=== PATIENT | male | born 1980 | race Hispanic/Latino ===

== ENCOUNTER 2017-01-24 21:39 | Inpatient (IN) | payer OTHER ==
[~2017-01-24] VITALS: Ht 332.7 cm; Wt 96.0 kg
[~2017-01-24 21:39] MED LIST: AMLODIPINE BESY10 MG PO; ARNUITY ELLIPTA INH; AUGMENTIN 500-1 EACH PO; AUGMENTIN 875-1 EACH PO; Anoro Ellipta INH; CEPHALEXIN500 MG PO; CIPRO500 MG PO; COLACE100 MG PO; DIFLUCAN100 MG PO; DOXYCYCLINE HY100 MG PO; FLOMAX0.4 MG PO; FLUCONAZOLE100 MG PO; FLUDROCORTISON0.1 MG PO; FLUTICASONE PRO16 GM; HUMALOG MI100 UNIT/4 SQ; KEFLEX500 MG PO; LANTUS100 UNIT/1 SQ; LEVEMIR100 UNIT/1 SQ; LISINOPRIL10 MG PO; MERREM500 MG IV; METFORMIN HCL500 MG PO; METOPROLOL TART25 MG PO; NORCO 5-325 TA1 EACH PO; NOVOLOG100 UNIT/1 SQ; OXYBUTYNIN CHLOR5 M1 PO; PANTOPRAZOLE SO40 MG PO; PROAIR HFA INH8.5 GM INH; PROBIOTIC & AC1 EACH PO; PROMETHAZINE HC25 M1 PO; REGLAN10 MG; REGLAN10 MG PO; SENNA-S TABLET1 EA PO; SODIUM BICARBO650 MG PO; TYLENOL WITH C1 EACH PO; ULTRAM50 MG PO
[2017-01-24 22:53] LABS: BILIRUBIN,URINE NEGATIVE (NEGATIVE); CLARITY,URINE CLOUDY (CLEAR); COLOR,URINE YELLOW (YELLOW); KETONES,URINE NEGATIVE (NEGATIVE); LEUKOCYTE ESTERASE ,URINE 2+ (NEGATIVE); NITRITE,URINE NEGATIVE (NEGATIVE); PROTEIN,URINE DIPSTICK 1+ (NEGATIVE); URINE UROBILINOGEN 0.2 mg/dL (0.2 - 1)
[2017-01-24 22:55] LABS: BACTERIA,URINE MODERATE /HPF; EPITHELIAL CELLS,URINE RARE /LPF; RBC,URINE >50 /HPF (0-5); WBC,URINE (MAN) >50 /HPF (0-5)
[2017-01-24] MEDS ORDERED: ONDANSETRON HCL INJ 2 MG/ML VIAL IV STA (23:48)
[2017-01-24] MEDS ORDERED: SODIUM CHLORIDE 0.9% 1000ML 1,000 ML IV STA (23:48)
[2017-01-24] MEDS ORDERED: MEROPENEM 1GRAM 1 GM in SODIUM CHLORIDE 0.9% 100 ML 100 ML IV STA (23:48)
[2017-01-25] MEDS ORDERED: MORPHINE SULFATE 5 MG/ML VIAL IV ONE
[2017-01-25 00:22] LABS: BASOPHILS % 0.3 % (0.0-1.0); EOSINOPHILS # (AUTO) 0.2 (0.0-0.4); EOSINOPHILS % 2.5 % (0.0-6.0); HEMATOCRIT 29.7 % (38.2-49.6); HEMOGLOBIN 10.2 g/dL (14.0-18.0); LYMPHOCYTES # (AUTO) 1.7 (1.0-3.2); LYMPHOCYTES % 26.7 % (18.0-39.1); MEAN CORPUSCULAR HGB CONC 34.3 g/dL (31-35); MEAN CORPUSCULAR VOLUME 81.6 fL (81-99); MONOCYTES # (AUTO) 0.5 (0.2-0.8); MONOCYTES % 8.3 % (4.4-11.3); NEUTROPHILS % 61.7 % (38.7-80.0); PLATELET COUNT 162 x10e3/uL (140-360); RED BLOOD COUNT 3.64 x10e6/uL (4.3-5.7); RED CELL DISTRIBUTION WIDTH 13.5 % (11.7-14.4)
[2017-01-25 00:41] LABS: ALBUMIN 3.5 g/dL (3.5-5.0); ALBUMIN/GLOBULIN RATIO 0.7 (0.8-2.0); ANION GAP 13.8 mmol/L (8-16); CALCIUM 8.5 mg/dL (8.4-10.2); CREATININE, SERUM 2.08 mg/dL (0.72-1.25); MAGNESIUM 1.3 MG/DL (1.3-2.1); POTASSIUM 4.8 mmol/L (3.5-5.1)
--- NOTE | 2017-01-25 01:38 | Diagnostic Imaging Report ---
EXAM: CT Abdomen and Pelvis WITHOUT contrast INDICATION: Flank pain, stone protocol COMPARISON: None. TECHNIQUE: Abdomen and pelvis were scanned utilizing a multidetector helical scanner from the lung base to the pubic symphysis without administration of IV contrast. Absence of intravenous contrast decreases sensitivity for detection of focal lesions and vascular pathology. Coronal and sagittal reformations were obtained. Stone protocol is performed. IV CONTRAST: None. ORAL CONTRAST: None RADIATION DOSE: Total DLP: 586.91 mGy*cm Estimated effective dose: (DLP x 0.015 x size factor) mSv COMPLICATIONS: None FINDINGS: LINES and TUBES: None. LOWER THORAX: Unremarkable HEPATOBILIARY: No focal hepatic lesions. No biliary ductal dilation. GALLBLADDER: There are cholecystectomy clips. SPLEEN: No splenomegaly. PANCREAS: No focal masses or ductal dilatation. Scattered regional calcifications noted along the pancreas. ADRENALS: No adrenal nodules KIDNEYS/URETERS: Bilateral hydronephrosis and hydroureter continuously to the level of the urinary bladder wall. No cystic or solid mass lesions. No stones. GI TRACT: No abnormal distention, wall thickening, or evidence of bowel obstruction. Appendix is normal. PELVIC ORGANS/BLADDER: The urinary bladder is diffusely thickened measuring 1.6 cm in diameter throughout with mild increase in wall thickening anteriorly. LYMPH NODES: No lymphadenopathy. VESSELS: There is mild atherosclerotic disease in the aorta and major arterial branches. PERITONEUM / RETROPERITONEUM: No free air or fluid. BONES: Unremarkable. SOFT TISSUES: Unremarkable. IMPRESSION: 1. Changes related to chronic pancreatitis. 2. Bilateral hydronephrosis and hydroureters with circumferentially thickened urinary bladder suggestive of chronic ascites versus less likely developing diffuse transitional cell carcinoma. No evidence of stones. 3. Cholecystectomy Signed by: Dr. Jose M Benavides M.D. on 01/25/2017 1:35 AM
[2017-01-25] MEDS ORDERED: DEXTROSE 50% SYRINGE 50 ML IV PRN (02:45)
[2017-01-25] MEDS: SODIUM CHLORIDE 0.9% 1000ML 1,000 ML IV SCH ×3 (03:14→18:15)
[2017-01-25] MEDS: MORPHINE SULFATE 2 MG/ML SYR IV PRN ×5 (03:40→23:53)
[2017-01-25 03:57] VITALS: BP 161/108
[2017-01-25 07:52] VITALS: BP 144/94
[2017-01-25] MEDS: INSULIN REGULAR, HUMAN 100 UNIT/1 ML 3ML VIAL SQ SCH ×4 (09:56→21:05)
[2017-01-25 11:24] VITALS: BP 143/96
[2017-01-25] MEDS ORDERED: MEROPENEM 1 GM VIAL ONE ×2 (12:32→21:11)
[2017-01-25] MEDS: ONDANSETRON HCL INJ 2 MG/ML VIAL IV PRN ×2 (12:35→18:17)
[2017-01-25] MEDS: MEROPENEM 1GRAM 1 GM in SODIUM CHLORIDE 0.9% 100 ML 100 ML IV SCH ×2 (12:35→21:25)
[2017-01-25 16:04] VITALS: BP 137/88
[2017-01-25] MEDS: INSULIN LISPRO 100 UNIT/1 ML 3ML VIAL SQ SCH (18:01)
[2017-01-25] MEDS: DOXYCYCLINE HYCLATE TABLET 100 MG TAB PO SCH (18:15)
[2017-01-25] MEDS: METOPROLOL TARTRATE 25 MG TAB PO SCH (18:15)
[2017-01-25 20:00] VITALS: BP 134/66
[2017-01-25] MEDS ORDERED: PROMETHAZINE 25MG/ NS 50ML (IV) IV PRN (20:45)
[2017-01-25] MEDS: INSULIN DETEMIR 100 UNIT/ML PEN SQ SCH (21:05)
[2017-01-26] VITALS: BP 153/107
[2017-01-26] MEDS: SODIUM CHLORIDE 0.9% 1000ML 1,000 ML IV SCH (02:23)
[2017-01-26 04:00] VITALS: BP 145/100
[2017-01-26] MEDS: MORPHINE SULFATE 2 MG/ML SYR IV PRN ×2 (04:32→09:40)
--- NOTE | 2017-01-26 05:33 | History and Physical ---
CHIEF COMPLAINT: Increasing urinary frequency, dysuria, pain on catheterization, and increasing blood sugar with fever. HISTORY: Patient is a 36-year-old male with a long history of neurogenic bladder secondary to diabetes. The patient self-straight caths at home. He was doing well until more so recently. He has increase in pain with straight cath, and also increasing abdominal pain and flank pain area more so on the right associated with fever and chills. Patient has recurrent infections quite often due to his neurogenic bladder where he straight caths himself to obtain urine. The patient came to the emergency room for evaluation. Here, the patient has a temperature 99.3. It was 101 at home. His laboratory with urinalysis shows significant wbcs of greater than 50, rbcs greater than 50, 2+ leukocyte esterase, and 4+ blood. The patient has moderate bacteria. The patient also had imaging tests. CT scan of the abdomen and pelvis without contrast due to his renal insufficiency. Patient has bilateral hydronephrosis and hydroureter with circumferentially thickened urinary bladder suggestive of chronic cystitis. PAST MEDICAL HISTORY: Diabetes, type 2, on insulin therapy, hypertension, neurogenic urinary bladder, diabetic neuropathy. Has recurrent urinary tract infections, bilateral hydronephrosis with previous stent that was removed. Chronic self-catheterization to obtain urine. PAST SURGICAL HISTORY: Complicated right knee surgery, right lower extremity surgery secondary to work-related injury, cholecystectomy, multiple cystoscopy with intervention. SOCIAL HISTORY: Patient lives with his spouse. He does not smoke or use alcohol. No recreational drugs. The patient is currently on disability leave. PHYSICAL EXAMINATION VITAL SIGNS: Temperature is 99, blood pressure 140/87, pulse rate 97, respirations 20. GENERAL: Patient is not in acute distress. HEENT: Normocephalic, atraumatic and anicteric. NECK: Supple grossly. PULMONARY: Clear. CARDIOVASCULAR: Regular rate and rhythm. ABDOMEN: Soft. Tenderness in the right flank compared to the left. CARDIOVASCULAR: Regular rate and rhythm. ABDOMEN: Soft. Suprapubic tenderness. No rebound or guarding. EXTREMITIES: No cyanosis. Right knee seems to be stable. No changes from baseline at this time. : Barcenas catheter in place. NEUROLOGIC: No focal deficit except for neuropathy from diabetes. LABORATORY: WBC is 6.95, hemoglobin 10.2, hematocrit 29.7, and platelets are 162,000. Chemistries with sodium 134, potassium 4.8, chloride 107, bicarb 18, BUN 34, creatinine 2.08, and glucose is 335. Urinalysis as mentioned with significant glucosuria and bacteria. CT scan showed bilateral hydronephrosis and hydroureter. IMPRESSION 1. Bilateral hydronephrosis and hydroureter. 2. Recurrent urinary tract infection complicated due to diabetic neuropathy with self-straight cath. 3. Diabetes, uncontrolled. PLAN: Antibiotics. Check the urine culture. IV fluids. Antibiotic will be meropenem due to the patient's previous significant multidrug-resistant bacteria. Insulin sliding scale coverage. Hemoglobin A1c. Home medications. IV fluid for washing out. Job#: [id number] ELMA
[2017-01-26 07:23] LABS: BASOPHILS % 0.2 % (0.0-1.0); EOSINOPHILS # (AUTO) 0.1 (0.0-0.4); EOSINOPHILS % 2.6 % (0.0-6.0); HEMATOCRIT 28.5 % (38.2-49.6); HEMOGLOBIN 9.6 g/dL (14.0-18.0); LYMPHOCYTES # (AUTO) 0.9 (1.0-3.2); LYMPHOCYTES % 22.3 % (18.0-39.1); MEAN CORPUSCULAR HEMOGLOBIN 27.6 pg (28-32); MEAN CORPUSCULAR HGB CONC 33.7 g/dL (31-35); MEAN CORPUSCULAR VOLUME 81.9 fL (81-99); MONOCYTES # (AUTO) 0.3 (0.2-0.8); NEUTROPHILS # (AUTO) 2.8 (2.1-6.9); NEUTROPHILS % 67.2 % (38.7-80.0); PLATELET COUNT 136 x10e3/uL (140-360); RED BLOOD COUNT 3.48 x10e6/uL (4.3-5.7); RED CELL DISTRIBUTION WIDTH 13.5 % (11.7-14.4)
[2017-01-26] MEDS: INSULIN REGULAR, HUMAN 100 UNIT/1 ML 3ML VIAL SQ SCH ×4 (07:30→21:40)
[2017-01-26] MEDS: ONDANSETRON HCL INJ 2 MG/ML VIAL IV PRN ×4 (07:40→21:45)
[2017-01-26 07:55] LABS: ALANINE AMINOTRANSFERASE 175 IU/L (0-55); ALBUMIN 2.9 g/dL (3.5-5.0); ALBUMIN/GLOBULIN RATIO 0.7 (0.8-2.0); ALKALINE PHOSPHATASE 273 IU/L (40-150); ANION GAP 9.5 mmol/L (8-16); BLOOD UREA NITROGEN 17 mg/dL (7-26); BUN/CREATININE RATIO 13 (6-25); CALCIUM 8.8 mg/dL (8.4-10.2); CARBON DIOXIDE 22 mmol/L (22-29); CHLORIDE 114 mmol/L (98-107); CREATININE, SERUM 1.26 mg/dL (0.72-1.25); EST GLOMERULAR FILTRATION RATE > 60 ML/MIN (60-); GLUCOSE 75 mg/dL (74-118); POTASSIUM 4.5 mmol/L (3.5-5.1); SODIUM 141 mmol/L (136-145)
[2017-01-26 08:00] VITALS: BP 163/108
[2017-01-26] MEDS: INSULIN LISPRO 100 UNIT/1 ML 3ML VIAL SQ SCH ×3 (08:00→17:07)
[2017-01-26] MEDS: FLUCONAZOLE 100 MG TAB PO SCH (08:00)
[2017-01-26] MEDS: DOXYCYCLINE HYCLATE TABLET 100 MG TAB PO SCH ×2 (08:00→17:15)
[2017-01-26] MEDS: METOPROLOL TARTRATE 25 MG TAB PO SCH ×2 (08:00→17:15)
[2017-01-26] MEDS: OXYBUTYNIN CHLORIDE XL 5 MG TAB PO SCH (08:00)
[2017-01-26] MEDS: AMLODIPINE BESYLATE 10 MG TAB PO SCH (08:00)
[2017-01-26] MEDS ORDERED: MEROPENEM 1 GM VIAL ONE ×2 (10:12→21:30)
[2017-01-26] MEDS: MEROPENEM 1GRAM 1 GM in SODIUM CHLORIDE 0.9% 100 ML 100 ML IV SCH ×2 (10:25→21:40)
[2017-01-26 12:00] VITALS: BP 141/98
[2017-01-26] MEDS: MORPHINE SULFATE 5 MG/ML VIAL IV PRN ×3 (13:35→21:45)
[2017-01-26 16:00] VITALS: BP 141/96
[2017-01-26 20:06] VITALS: BP 127/93
[2017-01-26] MEDS: INSULIN DETEMIR 100 UNIT/ML PEN SQ SCH (21:40)
[2017-01-27 00:33] VITALS: BP 146/101
[2017-01-27] MEDS: MORPHINE SULFATE 5 MG/ML VIAL IV PRN ×6 (01:53→21:10)
[2017-01-27 05:11] VITALS: BP 146/88
[2017-01-27] MEDS: ONDANSETRON HCL INJ 2 MG/ML VIAL IV PRN ×4 (05:51→17:58)
[2017-01-27] MEDS: INSULIN REGULAR, HUMAN 100 UNIT/1 ML 3ML VIAL SQ SCH ×3 (07:30→16:30)
[2017-01-27 07:57] VITALS: BP 129/91
[2017-01-27] MEDS: INSULIN LISPRO 100 UNIT/1 ML 3ML VIAL SQ SCH ×4 (08:00→21:00)
[2017-01-27] MEDS: DOXYCYCLINE HYCLATE TABLET 100 MG TAB PO SCH ×2 (08:05→17:09)
[2017-01-27] MEDS: OXYBUTYNIN CHLORIDE XL 5 MG TAB PO SCH (08:05)
[2017-01-27] MEDS: METOPROLOL TARTRATE 25 MG TAB PO SCH ×2 (08:05→17:00)
[2017-01-27] MEDS: AMLODIPINE BESYLATE 10 MG TAB PO SCH (08:05)
[2017-01-27] MEDS: FLUCONAZOLE 100 MG TAB PO SCH (08:05)
[2017-01-27] MEDS: MEROPENEM 1GRAM 1 GM in SODIUM CHLORIDE 0.9% 100 ML 100 ML IV SCH ×2 (09:15→21:01)
[2017-01-27] MEDS ORDERED: MEROPENEM 1 GM VIAL ONE ×2 (09:37→21:00)
[2017-01-27 11:41] VITALS: BP 141/100
[2017-01-27 16:00] VITALS: BP 108/79
[2017-01-27] MEDS ORDERED: DEXTROSE 50% SYRINGE 50 ML IV PRN (18:30)
[2017-01-27 20:00] VITALS: BP 129/91
[2017-01-27] MEDS: INSULIN DETEMIR 100 UNIT/ML PEN SQ SCH (21:00)
[2017-01-28] VITALS: BP 141/99
[2017-01-28 04:00] VITALS: BP 142/90
[2017-01-28] MEDS: MORPHINE SULFATE 5 MG/ML VIAL IV PRN ×4 (06:20→18:47)
[2017-01-28 07:38] VITALS: BP 119/85
[2017-01-28] MEDS ORDERED: MEROPENEM 1 GM VIAL ONE (08:41)
[2017-01-28] MEDS: INSULIN LISPRO 100 UNIT/1 ML 3ML VIAL SQ SCH ×8 (08:46→21:50)
[2017-01-28] MEDS: OXYBUTYNIN CHLORIDE XL 5 MG TAB PO SCH (08:56)
[2017-01-28] MEDS: METOPROLOL TARTRATE 25 MG TAB PO SCH ×2 (08:57→16:53)
[2017-01-28] MEDS: AMLODIPINE BESYLATE 10 MG TAB PO SCH (08:58)
[2017-01-28] MEDS: DOXYCYCLINE HYCLATE TABLET 100 MG TAB PO SCH ×2 (08:58→16:53)
[2017-01-28] MEDS: ONDANSETRON HCL INJ 2 MG/ML VIAL IV PRN (09:00)
[2017-01-28] MEDS: FLUCONAZOLE 100 MG TAB PO SCH (09:03)
[2017-01-28] MEDS: MEROPENEM 1 GM VIAL IV SCH ×2 (10:26→21:40)
[2017-01-28 11:28] VITALS: BP 124/82
[2017-01-28 19:36] VITALS: BP 139/83
[2017-01-28] MEDS: INSULIN DETEMIR 100 UNIT/ML PEN SQ SCH ×2 (21:40→21:50)
[2017-01-29 00:12] VITALS: BP 102/59
[2017-01-29] MEDS: MORPHINE SULFATE 5 MG/ML VIAL IV PRN ×6 (02:09→21:55)
[2017-01-29 04:00] VITALS: BP 132/80
[2017-01-29 07:27] VITALS: BP 145/94
[2017-01-29] MEDS: INSULIN LISPRO 100 UNIT/1 ML 3ML VIAL SQ SCH ×7 (07:30→21:50)
[2017-01-29] MEDS: OXYBUTYNIN CHLORIDE XL 5 MG TAB PO SCH (09:26)
[2017-01-29] MEDS: METOPROLOL TARTRATE 25 MG TAB PO SCH ×2 (09:26→17:38)
[2017-01-29] MEDS: MEROPENEM 1 GM VIAL IV SCH ×2 (09:26→21:50)
[2017-01-29] MEDS: FLUCONAZOLE 100 MG TAB PO SCH (09:26)
[2017-01-29] MEDS: AMLODIPINE BESYLATE 10 MG TAB PO SCH (09:27)
[2017-01-29] MEDS: DOXYCYCLINE HYCLATE TABLET 100 MG TAB PO SCH ×2 (09:27→17:38)
[2017-01-29 11:11] VITALS: BP 161/99
[2017-01-29 15:42] VITALS: BP 128/93
[2017-01-29 19:58] VITALS: BP 129/75
[2017-01-29] MEDS: INSULIN DETEMIR 100 UNIT/ML PEN SQ SCH (21:50)
[2017-01-30 00:22] VITALS: BP 81/55
[2017-01-30] MEDS: MORPHINE SULFATE 5 MG/ML VIAL IV PRN ×3 (02:02→09:05)
[2017-01-30 06:48] VITALS: BP 131/85
[2017-01-30 08:19] VITALS: BP 149/82
[2017-01-30] MEDS: INSULIN LISPRO 100 UNIT/1 ML 3ML VIAL SQ SCH ×4 (09:00→11:30)
[2017-01-30] MEDS: AMLODIPINE BESYLATE 10 MG TAB PO SCH (09:30)
[2017-01-30] MEDS: METOPROLOL TARTRATE 25 MG TAB PO SCH (09:30)
[2017-01-30] MEDS: OXYBUTYNIN CHLORIDE XL 5 MG TAB PO SCH (09:30)
[2017-01-30] MEDS: FLUCONAZOLE 100 MG TAB PO SCH (11:09)
[2017-01-30] MEDS: MEROPENEM 1 GM VIAL IV SCH (11:09)
[2017-01-30] MEDS: DOXYCYCLINE HYCLATE TABLET 100 MG TAB PO SCH (11:11)
[2017-01-30 11:58] VITALS: BP 113/71
[2017-01-30 15:55] VITALS: BP 107/67
--- NOTE | 2017-01-31 19:52 | Discharge Summary ---
SHERIFF'S DETECTIVE: Dr. Castro Jalloh. FINAL DIAGNOSES: 1. Bilateral hydroureteronephrosis secondary to urinary retention secondary to neurogenic urinary bladder and also recurrent infection. 2. Status post Barcenas catheter placement. 3. Extensive chronic multiple medical problem. SUMMARY: A 36-year-old male who needs a suprapubic catheter placement. Apparently his insurance is from [facility] and they refused any further procedures or any hospitalization further. The patient is unable to obtain a suprapubic catheter due to insurance denial. I tried to transfer the patient to [facility] for procedure, but is an outpatient procedure for suprapubic catheter placement by interventional radiology, therefore, administrative denial. The patient is stable otherwise. His hydronephrosis improved with a Barcenas catheter placement. Patient will go home with a Barcenas catheter. Instructions for the patient to go to [facility] and subsequent referral to obtain a suprapubic catheter done by an interventional radiology for [facility]. I did write a prescription for referral, but may not work because I am not in the network and there is a possibility of denial due to needing an in network physician for referral. The patient is stable. He will return to physical therapy. He will go home with a Barcenas catheter. Instructions given. The patient has good knowledge of the [facility] catheter care. The patient is stable for discharge today. Job#: [id number]
== END 2017-01-30 17:07 | disposition home or self-care (01) | DRG 699 ==
LOC: ER 21:39 → ERHOLD 01-25 02:48 → MED/SURG3 01-25 02:51
PROVIDERS: ADMIT Internal Medicine; ATTEND Internal Medicine
DX: T83.511A Infection and inflammatory reaction due to indwelling urethral catheter, initial encounter (principal); N13.6 Pyonephrosis; N17.9 Acute kidney failure, unspecified; E11.21 Type 2 diabetes mellitus with diabetic nephropathy; N31.9 Neuromuscular dysfunction of bladder, unspecified; E11.40 Type 2 diabetes mellitus with diabetic neuropathy, unspecified; N39.0 Urinary tract infection, site not specified; N39.498 Other specified urinary incontinence; I12.9 Hypertensive chronic kidney disease with stage 1 through stage 4 chronic kidney disease, or unspecified chronic kidney disease; N18.9 Chronic kidney disease, unspecified; E86.0 Dehydration; D64.9 Anemia, unspecified; E11.65 Type 2 diabetes mellitus with hyperglycemia
CPT/HCPCS: 36415; 74176; 80053; 81001; 82948; 83605; 83735; 85025; 87040; 87086; 96360; 96365; 96374; 96375; 99284; J2185; J2270; J2405; J2550; J7030

== ENCOUNTER 2017-08-29 00:36 | Inpatient (IN) | payer SELFPAY ==
[~2017-08-29] VITALS: Ht 332.7 cm; Wt 95.7 kg
[2017-08-29] MEDS ORDERED: ONDANSETRON HCL INJ 2 MG/ML VIAL IV STA (01:01)
[2017-08-29] MEDS ORDERED: ACETAMINOPHEN 325 MG TAB PO ONE (01:15)
[2017-08-29] MEDS ORDERED: SODIUM CHLORIDE 0.9% 1000ML 1,000 ML IV ONE (01:15)
[2017-08-29 01:52] LABS: CLARITY,URINE CLOUDY (CLEAR); COLOR,URINE RED (YELLOW); LEUKOCYTE ESTERASE ,URINE 2+ (NEGATIVE); NITRITE,URINE NEGATIVE (NEGATIVE)
[2017-08-29 01:53] LABS: BILIRUBIN,URINE 1+ (NEGATIVE); KETONES,URINE NEGATIVE (NEGATIVE); PROTEIN,URINE DIPSTICK 3+ (NEGATIVE); URINE UROBILINOGEN 0.2 mg/dL (0.2 - 1)
[2017-08-29 01:55] LABS: RBC,URINE >50 /HPF (0-5); WBC,URINE (MAN) >50 /HPF (0-5)
[2017-08-29 01:56] LABS: EPITHELIAL CELLS,URINE RARE /LPF
--- NOTE | 2017-08-29 01:56 | Diagnostic Imaging Report ---
EXAM: CHEST SINGLE (PORTABLE), AP 1 view INDICATION: Weakness, fever, UTI COMPARISON: AP view of the chest July 31, 2016 FINDINGS: LINES/TUBES: None LUNGS: No consolidations or edema. PLEURA: No effusions or pneumothorax. HEART AND MEDIASTINUM: Normal size and contour. BONES AND SOFT TISSUES: No acute findings. IMPRESSION: No acute thoracic abnormality. Signed by: Dr. Rosalia Beltran M.D. on 08/29/2017 1:53 AM
[2017-08-29 01:57] LABS: BACTERIA,URINE FEW /HPF
[2017-08-29 02:01] LABS: BASOPHILS % 0.1 % (0.0-1.0); EOSINOPHILS % 0.2 % (0.0-6.0); HEMATOCRIT 34.6 % (38.2-49.6); HEMOGLOBIN 11.1 g/dL (14.0-18.0); LYMPHOCYTES # (AUTO) 0.8 (1.0-3.2); LYMPHOCYTES % 9.3 % (18.0-39.1); MEAN CORPUSCULAR HEMOGLOBIN 25.9 pg (28-32); MEAN CORPUSCULAR HGB CONC 32.1 g/dL (31-35); MEAN CORPUSCULAR VOLUME 80.8 fL (81-99); MONOCYTES # (AUTO) 0.6 (0.2-0.8); MONOCYTES % 6.7 % (4.4-11.3); NEUTROPHILS % 83.2 % (38.7-80.0); PLATELET COUNT 137 x10e3/uL (140-360); RED BLOOD COUNT 4.28 x10e6/uL (4.3-5.7); RED CELL DISTRIBUTION WIDTH 16.5 % (11.7-14.4)
[2017-08-29 02:05] LABS: ALBUMIN 3.4 g/dL (3.5-5.0); ALBUMIN/GLOBULIN RATIO 0.6 (0.8-2.0); ANION GAP 14.1 mmol/L (8-16); CALCIUM 9.4 mg/dL (8.4-10.2); CREATININE, SERUM 2.58 mg/dL (0.72-1.25); POTASSIUM 5.1 mmol/L (3.5-5.1)
[2017-08-29] MEDS ORDERED: CEFTRIAXONE SOD 1 GM VIAL IV SCH (05:30)
[2017-08-29] MEDS ORDERED: DEXTROSE 50% SYRINGE 50 ML IV PRN (05:30)
[2017-08-29] MEDS: MORPHINE SULFATE 2 MG/ML SYR IV PRN ×4 (06:12→20:45)
[2017-08-29] MEDS: ONDANSETRON HCL INJ 2 MG/ML VIAL IV PRN ×3 (06:12→16:49)
[2017-08-29] MEDS: SODIUM CHLORIDE 0.9% 1000ML 1,000 ML IV SCH ×2 (06:20→16:48)
[2017-08-29 07:42] VITALS: BP 139/94
[2017-08-29 08:00] VITALS: BP 139/94
[2017-08-29] MEDS: INSULIN REGULAR, HUMAN 100 UNIT/1 ML 3ML VIAL SQ SCH ×4 (08:58→21:15)
[2017-08-29] MEDS ORDERED: GABAPENTIN300 MG PO (09:48)
[2017-08-29] MEDS: MEROPENEM 500MG 500 MG in SODIUM CHLORIDE 0.9% 50ML 50 ML IV SCH ×4 (10:30→19:40)
--- NOTE | 2017-08-29 11:17 | History and Physical ---
CHIEF COMPLAINT: Fever. Complicated urinary tract infection associated with suprapubic urinary bladder catheter. HISTORY OF PRESENT ILLNESS: Patient is a 37-year-old male, advanced diabetes type __2 on insulin therapy with diabetic complications, neurogenic urinary bladder status post a suprapubic catheter placement in May this year. Patient came in because he was having fever and pain to the suprapubic area. He has also had low blood pressure, systolic in the 77. The patient's urinalysis showed that he has significant 2+ leukocyte esterase with WBCs greater than 50, cloudy urine. Patient is stable now. Urine has remained dirty with sediment. The patient's suprapubic catheter site looks okay. He had a chest x-ray done, otherwise unremarkable. PAST MEDICAL HISTORY: Neurogenic urinary bladder status post suprapubic catheter placement. Diabetes type __1 on insulin therapy. Complicated right lower extremity injury with multiple knee replacements and surgical intervention. Hypertension, dyslipidemia, diabetic neuropathy. SOCIAL HISTORY: Patient lives with his . He does not smoke or use alcohol. No recreational drug use. ALLERGIES: TO ORAL CONTRAST, IV CONTRAST. HOME MEDICATIONS: Norvasc, insulin, metoprolol tartrate, and gabapentin. PHYSICAL EXAMINATION: VITAL SIGNS: Temperature T-max 101. Blood pressure 142/94. Pulse rate 118. Respirations 20. GENERAL: Patient is in no acute distress. HEENT: Normocephalic, atraumatic, anicteric. NECK: Supple grossly. PULMONARY: Clear. CARDIOVASCULAR: Regular rate and rhythm. ABDOMEN: Soft. Suprapubic catheter. Site of the catheter is without any drainage. No sign of infection as the surgical site. EXTREMITIES: Muscular atrophy. NEUROLOGIC: Muscular atrophy with generalized weakness. Diabetic neuropathy. LABORATORY: Sodium 135, potassium 5.1, chloride 109, bicarb 17, BUN 32, creatinine 2.5. Glucose 220. WBC is 8.4, hemoglobin 11.1, hematocrit 34.6 and platelets are 137. IMPRESSION: 1. Fever. 2. Complicated urinary tract infection with indwelling suprapubic catheter. 3. Neurogenic urinary bladder and neuropathy secondary to complication of diabetes type __1 on insulin therapy. 4. History of extensive right lower extremity surgery. PLAN: Continue with IV antibiotics. Check urine culture and sensitivity. Insulin sliding-scale coverage. Home medications. We will continue to monitor the patient very closely at this time. Job#: [id number] EV
[2017-08-29] MEDS: INSULIN LISPRO 100 UNIT/1 ML 3ML VIAL SQ SCH ×2 (12:25→16:30)
[2017-08-29 13:25] VITALS: BP 153/99
[2017-08-29 16:35] VITALS: BP 137/91
[2017-08-29] MEDS: METOPROLOL TARTRATE 25 MG TAB PO SCH (16:49)
[2017-08-29] MEDS: GABAPENTIN 300 MG CAP PO SCH ×2 (16:49→21:40)
[2017-08-29] MEDS: ACETAMINOPHEN 325 MG TAB PO PRN (17:01)
[2017-08-29] MEDS ORDERED: MEROPENEM 500 MG VIAL ONE (19:38)
[2017-08-29 20:19] VITALS: BP 131/83
[2017-08-29 21:10] VITALS: BP 131/83
[2017-08-30] VITALS (7 sets, daily range): BP systolic 122–171; BP diastolic 58–102
[2017-08-30] MEDS: MORPHINE SULFATE 2 MG/ML SYR IV PRN ×5 (00:52→21:10)
[2017-08-30] MEDS: MEROPENEM 500MG 500 MG in SODIUM CHLORIDE 0.9% 50ML 50 ML IV SCH ×3 (02:51→18:22)
[2017-08-30] MEDS: ACETAMINOPHEN 325 MG TAB PO PRN ×2 (02:52→23:58)
[2017-08-30 04:51] LABS: BASOPHILS % 0.2 % (0.0-1.0); EOSINOPHILS # (AUTO) 0.1 (0.0-0.4); EOSINOPHILS % 2.1 % (0.0-6.0); HEMATOCRIT 29.6 % (38.2-49.6); HEMOGLOBIN 9.4 g/dL (14.0-18.0); LYMPHOCYTES # (AUTO) 0.7 (1.0-3.2); LYMPHOCYTES % 13.9 % (18.0-39.1); MEAN CORPUSCULAR HGB CONC 31.8 g/dL (31-35); MONOCYTES # (AUTO) 0.5 (0.2-0.8); MONOCYTES % 9.8 % (4.4-11.3); NEUTROPHILS # (AUTO) 3.9 (2.1-6.9); NEUTROPHILS % 73.6 % (38.7-80.0); PLATELET COUNT 115 x10e3/uL (140-360); RED BLOOD COUNT 3.61 x10e6/uL (4.3-5.7); RED CELL DISTRIBUTION WIDTH 16.5 % (11.7-14.4)
[2017-08-30 05:11] LABS: ALBUMIN 2.8 g/dL (3.5-5.0); ALBUMIN/GLOBULIN RATIO 0.6 (0.8-2.0); ANION GAP 12.2 mmol/L (8-16); CALCIUM 8.6 mg/dL (8.4-10.2); CREATININE, SERUM 2.01 mg/dL (0.72-1.25); POTASSIUM 5.2 mmol/L (3.5-5.1)
[2017-08-30] MEDS: ONDANSETRON HCL INJ 2 MG/ML VIAL IV PRN ×4 (05:15→21:10)
[2017-08-30] MEDS: SODIUM CHLORIDE 0.9% 1000ML 1,000 ML IV SCH ×2 (05:59→16:50)
[2017-08-30] MEDS: INSULIN LISPRO 100 UNIT/1 ML 3ML VIAL SQ SCH ×3 (08:04→16:50)
[2017-08-30] MEDS: GABAPENTIN 300 MG CAP PO SCH ×3 (08:05→21:09)
[2017-08-30] MEDS: INSULIN REGULAR, HUMAN 100 UNIT/1 ML 3ML VIAL SQ SCH ×4 (08:05→21:10)
[2017-08-30] MEDS: METOPROLOL TARTRATE 25 MG TAB PO SCH ×2 (08:05→16:50)
[2017-08-30] MEDS ORDERED: SOD POLYSTYRENE SULFONATE SUSP 15 GM/60 ML BTL PO ONE (11:30)
[2017-08-31] VITALS (7 sets, daily range): BP systolic 137–167; BP diastolic 82–107
[2017-08-31] MEDS: MORPHINE SULFATE 2 MG/ML SYR IV PRN ×5 (01:24→21:30)
[2017-08-31] MEDS: ONDANSETRON HCL INJ 2 MG/ML VIAL IV PRN ×5 (01:24→21:30)
[2017-08-31] MEDS: MEROPENEM 500MG 500 MG in SODIUM CHLORIDE 0.9% 50ML 50 ML IV SCH ×3 (03:23→18:21)
[2017-08-31 05:00] LABS: ANION GAP 11.7 mmol/L (8-16); CALCIUM 8.2 mg/dL (8.4-10.2); CREATININE, SERUM 1.79 mg/dL (0.72-1.25); POTASSIUM 4.7 mmol/L (3.5-5.1)
[2017-08-31] MEDS: SODIUM CHLORIDE 0.9% 1000ML 1,000 ML IV SCH ×2 (07:16→21:29)
[2017-08-31] MEDS: INSULIN REGULAR, HUMAN 100 UNIT/1 ML 3ML VIAL SQ SCH ×4 (07:30→20:21)
[2017-08-31] MEDS: METOPROLOL TARTRATE 25 MG TAB PO SCH ×2 (07:57→16:10)
[2017-08-31] MEDS: GABAPENTIN 300 MG CAP PO SCH ×3 (07:57→20:21)
[2017-08-31] MEDS: INSULIN LISPRO 100 UNIT/1 ML 3ML VIAL SQ SCH ×3 (08:27→16:00)
[2017-09-01 00:50] VITALS: BP 144/85
[2017-09-01] MEDS: MORPHINE SULFATE 2 MG/ML SYR IV PRN ×2 (02:04→06:19)
[2017-09-01] MEDS: ONDANSETRON HCL INJ 2 MG/ML VIAL IV PRN ×2 (02:04→06:19)
[2017-09-01] MEDS: MEROPENEM 500MG 500 MG in SODIUM CHLORIDE 0.9% 50ML 50 ML IV SCH ×2 (02:04→11:24)
[2017-09-01 05:55] VITALS: BP 125/73
[2017-09-01 07:20] VITALS: BP 166/87
[2017-09-01] MEDS: GABAPENTIN 300 MG CAP PO SCH (07:51)
[2017-09-01] MEDS: METOPROLOL TARTRATE 25 MG TAB PO SCH (07:51)
[2017-09-01 08:00] VITALS: BP 166/87
[2017-09-01] MEDS: INSULIN LISPRO 100 UNIT/1 ML 3ML VIAL SQ SCH ×2 (08:45→11:30)
[2017-09-01] MEDS: INSULIN REGULAR, HUMAN 100 UNIT/1 ML 3ML VIAL SQ SCH ×2 (08:46→11:30)
[2017-09-01] MEDS: SODIUM CHLORIDE 0.9% 1000ML 1,000 ML IV SCH (08:47)
[2017-09-01] MEDS ORDERED: CEFEPIME HCL 1 GM VIAL IM SCH (10:00)
--- NOTE | 2017-09-01 16:23 | Discharge Summary ---
FINAL DIAGNOSES: 1. Complicated urinary tract infection associated with suprapubic catheter. 2. Neurogenic urinary bladder and neuropathy. 3. Fever, resolved. 4. Diabetes type 1 on insulin therapy. 5. History of extensive right leg surgery. SUMMARY: Patient is a 37-year-old male who came in with urinary tract infection with a complicated suprapubic catheter. Suprapubic catheter site is without any skin infection. The urinalysis shows Pseudomonas aeruginosa for which the patient has been receiving antibiotic of meropenem. He is stable at this time. He will go home today with Ceftin 5 mg twice a day. Prior to that he gets cefepime 1 gram I am one time. The patient will resume his home medication. He will follow up with me in approximately 1 week and follow up with his urologist in approximately 1 to 2 weeks. Job#: [id number] GH
== END 2017-09-01 12:03 | disposition home or self-care (01) | DRG 698 ==
LOC: ER 00:36 → ERHOLD 05:19 → MED/SURG2 07:12
PROVIDERS: ADMIT Internal Medicine; ATTEND Internal Medicine
DX: T83.510A Infection and inflammatory reaction due to cystostomy catheter, initial encounter (principal); J18.9 Pneumonia, unspecified organism; N13.30 Unspecified hydronephrosis; B96.5 Pseudomonas (aeruginosa) (mallei) (pseudomallei) as the cause of diseases classified elsewhere; Z16.39 Resistance to other specified antimicrobial drug; N31.9 Neuromuscular dysfunction of bladder, unspecified; Z96.0 Presence of urogenital implants; E11.9 Type 2 diabetes mellitus without complications; M21.371 Foot drop, right foot; I10 Essential (primary) hypertension
CPT/HCPCS: 36415; 71045; 80048; 80053; 81001; 82948; 83605; 85025; 87040; 87086; 87186; 96361; 96374; J0692; J0696; J2185; J2270; J2405; J7030

== ENCOUNTER 2018-05-03 14:08 | Inpatient (IN) | payer BC, OTHER ==
[~2018-05-03] VITALS: Ht 180.3 cm; Wt 95.3 kg
[~2018-05-03 14:08] MED LIST changes: +GABAPENTIN300 MG PO
--- OUTSIDE RECORDS SUMMARY | 2018-05-03 14:12 | XMS REPORT | Summary of Care ---
Author Author Formerly [facility] Address Unknown Phone Unavailable Encounter HQ Encntr_alias(FIN) [id number] Date(s): 06/02/17 - 06/02/17 [facility] [address], [place] [id number]- [phone] Attending Physician: Kenzie Mancilla MD Referring Physician: Kenzie Mancilla MD Vital Signs No data available for this section Problem List No data available for this section Allergies, Adverse Reactions, Alerts No data available for this section Medications No data available for this section Results No data available for this section Immunizations No data available for this section Procedures No data available for this section Social History No data available for this section Assessment and Plan No data available for this section
--- OUTSIDE RECORDS SUMMARY | 2018-05-03 14:12 | XMS REPORT | Continuity of Care Document ---
Author Author [facility] Interface Address Unknown Phone Unavailable Problems Problem Status Onset Date Classification Date Reported Comments Source M75.41 - IMPINGEMENT SYNDROME OF RIGHT M Active 06/17/2017 [facility] Acute renal failure Active 08/09/2015 Problem 09/01/2017 [facility] Dehydration Active 08/09/2015 Problem 09/01/2017 [facility] Diarrhea Active 08/09/2015 Problem 09/01/2017 [facility] GI bleed Active 08/09/2015 Problem 09/01/2017 [facility] Hyperglycemia Active 08/09/2015 Problem 09/01/2017 [facility] Renal insufficiency Active 04/15/2015 Problem 09/01/2017 [facility] Sepsis Active 04/15/2015 Problem 09/01/2017 [facility] Bacteremia Active 03/30/2015 Problem 09/01/2017 [facility] Prostatitis Active 03/30/2015 Problem 09/01/2017 [facility] UTI Active 03/30/2015 Problem 09/01/2017 [facility] Pyelonephritis Active 02/10/2015 Problem 09/01/2017 [facility] Acute renal insufficiency Active Problem 09/01/2017 [facility] Bladder wall thickening Active Problem 09/01/2017 [facility] Fever Active Problem 09/01/2017 [facility] Hydroureteronephrosis Active Problem 09/01/2017 [facility] Hypomagnesemia Active Problem 09/01/2017 [facility] Indwelling catheter present on admission Active Problem 09/01/2017 [facility] Obstructive uropathy Active Problem 09/01/2017 [facility] Ureteral stent displacement Active Problem 09/01/2017 [facility] Medications Medication Details Route Status Patient Instructions Ordering Provider Order Date Source Ciprofloxacin Hcl (Cipro) 500 Mg Tablet, 500 Mg Oral Daily Active 08/29/2017 [facility] Doxycycline Hyclate 100 Mg Capsule, 100 Mg Oral Twice A Day Active 08/29/2017 [facility] Fluconazole 100 Mg Tablet, 200 Mg Oral Daily Active 08/29/2017 [facility] Insulin Detemir (Levemir) 100 Unit/1 Ml Vial, 20 Units Sub-Q Bedtime Active 08/29/2017 [facility] Oxybutynin Chloride (Oxybutynin Chloride Er) 5 Mg Tab.er.24, 15 Mg Oral Daily Active 08/29/2017 [facility] Cephalexin 500 Mg Capsule, 500 Mg Oral Four Times Daily Active 06/04/2016 [facility] Hydrocodone Bit/Acetaminophen ([place] 5-325 Tablet) 1 Each Tablet, 1 Tab Oral Every 6 Hours as needed for Pain Active 06/04/2016 [facility] Promethazine Hcl 25 Mg Tablet, 25 Mg Oral Every 4 Hours Active 06/04/2016 [facility] Tramadol Hcl (Ultram) 50 Mg Tablet, 1-2 Tab Oral Every 6 Hours as needed for Pain Active 06/04/2016 [facility] Fluticasone Propionate 16 Gm [place].susp, 1 Twice A Day Active 08/08/2015 [facility] Meropenem (Merrem) 500 Mg Inj, 500 Mg Intraven Every 8 Hours Active 08/08/2015 [facility] Metoclopramide Hcl (Reglan) 10 Mg Tablet, 10 Mg Before Meals And At Bedtime Active 08/08/2015 [facility] Pantoprazole Sodium (Protonix) 40 Mg Tablet.dr, 40 Mg Oral Every Morning Active 08/08/2015 [facility] Amoxicillin/Potassium Clav (Augmentin 500-125 Tablet) 1 Each Tablet, 500 Mg Oral Twice A Day Active 04/11/2015 [facility] Fluconazole (Diflucan) 100 Mg Tablet, Mg Oral Daily Active 04/11/2015 [facility] Tamsulosin Hcl (Flomax*) 0.4 Mg Cap, 0.4 Mg Oral Bedtime Active 03/30/2015 [facility] Acetaminophen With Codeine (Tylenol With Codeine #3 Tablet) 1 Each Tablet, 300 Mg Oral Every 6 Hours as needed for Pain Active 03/08/2015 [facility] Senna Fruit/Conc/Doc Sod/Bisa (Senna-S Tablet) 1 Ea Tab, 1 Each Oral Bedtime Active 03/08/2015 [facility] Hydrocodone Bit/Acetaminophen ([place] 5-325 Tablet) 1 Each Tablet, Tab Oral Daily Active 02/22/2015 [facility] Insulin Npl/Insulin Lispro (Humalog Mix 50-50 Kwikpen) 100 Unit/1 Ml Insuln.pen, Sub-Q 15 Units Every A.m. Active 02/22/2015 [facility] Lisinopril 10 Mg Tablet, Tab Oral Daily Active 02/22/2015 [facility] Amoxicillin/Potassium Clav (Augmentin 875-125 Tablet) 1 Each Tablet, Tab Oral Twice A Day Active 02/11/2015 [facility] Cephalexin Monohydrate (Keflex) 500 Mg Capsule, 500 Mg Oral Three Times A Day Active 02/11/2015 [facility] Docusate Sodium (Colace) 100 Mg Cap, Cap Oral Daily Active 02/11/2015 [facility] Insulin Glargine,Hum.rec.anlog (Lantus) 100 Unit/1 Ml Cartridge, Sub-Q 45 Units At Bedtime Active 02/11/2015 [facility] Metformin Hcl 500 Mg Tablet, 500 Mg Oral Twice Daily Active 02/11/2015 [facility] Amlodipine Besylate 10 Mg Tablet Daily Active [facility] Gabapentin 300 Mg Capsule Three Times A Day Active [facility] Insulin Aspart (Novolog) 100 Unit/1 Ml Cartridge Before Meals Active [facility] Metoprolol Tartrate 25 Mg Tablet Twice A Day Active [facility] Allergies, Adverse Reactions, Alerts Substance Category Reaction Severity Reaction type Status Date Reported Comments Source PO CONTRAST Mild Allergy to Substance Active 07/06/2007 [facility] Iodinated Contrast- Oral and IV Dye Unknown Allergy to Substance Active 07/28/2016 [facility] Immunizations Immunization Date Given Site Status Last Updated Comments Source Results Order Name Results Value Reference Range Date Interpretation Comments Source Capillary blood glucose measurement by glucometer (mass/volume) Capillary blood glucose measurement by glucometer (mass/volume) 190 70 - 120 09/01/2017 [facility] Estimated glomerular filtration rate (GFR) determination Estimated glomerular filtration rate (GFR) determination 43 60 08/31/2017 [facility] Glucose measurement Glucose measurement 165 74 - 118 08/31/2017 [facility] Serum or plasma anion gap Serum or plasma anion gap 11.7 8 - 16 08/31/2017 [facility] Serum or plasma calcium measurement (mass/volume) Serum or plasma calcium measurement (mass/volume) 8.2 8.4 - 10.2 08/31/2017 [facility] Serum or plasma carbon dioxide, total measurement (moles/volume) Serum or plasma carbon dioxide, total measurement (moles/volume) 20 22 - 29 08/31/2017 [facility] Serum or plasma chloride measurement (moles/volume) Serum or plasma chloride measurement (moles/volume) 109 98 - 107 08/31/2017 [facility] Serum or plasma creatinine measurement (mass/volume) Serum or plasma creatinine measurement (mass/volume) 1.79 0.72 - 1.25 08/31/2017 [facility] Serum or plasma potassium measurement (moles/volume) Serum or plasma potassium measurement (moles/volume) 4.7 3.5 - 5.1 08/31/2017 [facility] Serum or plasma sodium measurement (moles/volume) Serum or plasma sodium measurement (moles/volume) 136 136 - 145 08/31/2017 [facility] Serum or plasma urea nitrogen measurement (mass/volume) Serum or plasma urea nitrogen measurement (mass/volume) 20 7 - 26 08/31/2017 [facility] Serum or plasma urea nitrogen/creatinine mass ratio Serum or plasma urea nitrogen/creatinine mass ratio 11 6 - 25 08/31/2017 [facility] Automated blood basophil count (count/volume) Automated blood basophil count (count/volume) 0.0 0.0 - 0.1 08/30/2017 [facility] Automated blood basophil count as percentage of total leukocytes Automated blood basophil count as percentage of total leukocytes 0.2 0.0 - 1.0 08/30/2017 [facility] Automated blood eosinophil count Automated blood eosinophil count 0.1 0.0 - 0.4 08/30/2017 [facility] Automated blood eosinophil count as percentage of total leukocytes Automated blood eosinophil count as percentage of total leukocytes 2.1 0.0 - 6.0 08/30/2017 [facility] Automated blood hematocrit (volume fraction) Automated blood hematocrit (volume fraction) 29.6 38.2 - 49.6 08/30/2017 [facility] Automated blood lymphocyte count as percentage ot total leukocytes Automated blood lymphocyte count as percentage ot total leukocytes 13.9 18.0 - 39.1 08/30/2017 [facility] Automated blood monocyte count as percentage of total leukocytes Automated blood monocyte count as percentage of total leukocytes 9.8 4.4 - 11.3 08/30/2017 [facility] Automated blood neutrophil count Automated blood neutrophil count 3.9 2.1 - 6.9 08/30/2017 [facility] Automated blood platelet count (count/volume) Automated blood platelet count (count/volume) 115 140 - 360 08/30/2017 [facility] Automated blood segmented neutrophil count as percentage of total leukocytes Automated blood segmented neutrophil count as percentage of total leukocytes 73.6 38.7 - 80.0 08/30/2017 [facility] Automated erythrocyte mean corpuscular hemoglobin (mass per erythrocyte) Automated erythrocyte mean corpuscular hemoglobin (mass per erythrocyte) 26.0 28 - 32 08/30/2017 [facility] Automated erythrocyte mean corpuscular hemoglobin concentration measurement (mass/volume) Automated erythrocyte mean corpuscular hemoglobin concentration measurement (mass/volume) 31.8 31 - 35 08/30/2017 [facility] Automated erythrocyte mean corpuscular volume Automated erythrocyte mean corpuscular volume 82.0 81 - 99 08/30/2017 [facility] Blood erythrocytes automated count (number/volume) Blood erythrocytes automated count (number/volume) 3.61 4.3 - 5.7 08/30/2017 [facility] Blood hemoglobin measurement (moles/volume) Blood hemoglobin measurement (moles/volume) 9.4 14.0 - 18.0 08/30/2017 [facility] Blood leukocytes automated count (number/volume) Blood leukocytes automated count (number/volume) 5.33 4.8 - 10.8 08/30/2017 [facility] Blood lymphocytes count (number/volume) Blood lymphocytes count (number/volume) 0.7 1.0 - 3.2 08/30/2017 [facility] Blood monocytes automated count (number/volume) Blood monocytes automated count (number/volume) 0.5 0.2 - 0.8 08/30/2017 [facility] Plasma globulin measurement (mass/volume) Plasma globulin measurement (mass/volume) 4.6 2.3 - 3.5 08/30/2017 [facility] Serum or plasma alanine aminotransferase measurement (enzymatic activity/volume) Serum or plasma alanine aminotransferase measurement (enzymatic activity/volume) 40 0 - 55 08/30/2017 [facility] Serum or plasma albumin measurement (mass/volume) Serum or plasma albumin measurement (mass/volume) 2.8 3.5 - 5.0 08/30/2017 [facility] Serum or plasma albumin/globulin mass ratio Serum or plasma albumin/globulin mass ratio 0.6 0.8 - 2.0 08/30/2017 [facility] Serum or plasma alkaline phosphatase measurement (enzymatic activity/volume) Serum or plasma alkaline phosphatase measurement (enzymatic activity/volume) 234 40 - 150 08/30/2017 [facility] Serum or plasma protein measurement (mass/volume) Serum or plasma protein measurement (mass/volume) 7.4 6.5 - 8.1 08/30/2017 [facility] Serum or plasma total bilirubin measurement (mass/volume) Serum or plasma total bilirubin measurement (mass/volume) 0.5 0.2 - 1.2 08/30/2017 [facility] Red Cell Distribution Width 16.5 11.7 - 14.4 08/30/2017 [facility] IM GRANULOCYTES % 0.4 0.0 - 1.0 08/30/2017 [facility] Absolute Immature Granulocyte (auto 0.02 0 - 0.1 08/30/2017 [facility] Aspartate Amino Transf (AST/SGOT) 14 5 - 34 08/30/2017 [facility] Automated urine sediment leukocyte count by microscopy (number/high power field) Automated urine sediment leukocyte count by microscopy (number/high power field) null 0 - 5 08/29/2017 [facility] Bacteria detection in urine sediment by light microscopy Bacteria detection in urine sediment by light microscopy FEW NONE 08/29/2017 [facility] Blood culture Blood culture NO GROWTH AFTER 72 HOURS 08/29/2017 [facility] Epithelial cells detection in urine sediment by light microscopy Epithelial cells detection in urine sediment by light microscopy RARE NONE 08/29/2017 [facility] Erythrocytes detection in urine sediment by light microscopy Erythrocytes detection in urine sediment by light microscopy null 0 - 5 08/29/2017 [facility] Specific gravity of Urine by Test strip Specific gravity of Urine by Test strip 1.020 1.010 - 1.025 08/29/2017 [facility] Urine clarity Urine clarity CLOUDY CLEAR 08/29/2017 [facility] Urine color determination Urine color determination RED YELLOW 08/29/2017 [facility] Urine erythrocytes detection Urine erythrocytes detection 3+ NEGATIVE 08/29/2017 [facility] Urine glucose detection Urine glucose detection NEGATIVE NEGATIVE 08/29/2017 [facility] Urine ketones detection by automated test strip Urine ketones detection by automated test strip NEGATIVE NEGATIVE 08/29/2017 [facility] Urine leukocyte esterase detection by dipstick Urine leukocyte esterase detection by dipstick 2+ NEGATIVE 08/29/2017 [facility] Urine nitrite detection Urine nitrite detection NEGATIVE NEGATIVE 08/29/2017 [facility] Urine pH measurement by automated test strip Urine pH measurement by automated test strip 6 5 - 7 08/29/2017 [facility] Urine protein measurement by test strip (mass/volume) Urine protein measurement by test strip (mass/volume) 3+ NEGATIVE 08/29/2017 [facility] Urine total bilirubin measurement (mass/volume) Urine total bilirubin measurement (mass/volume) 1+ NEGATIVE 08/29/2017 [facility] Urine urobilinogen measurement by test strip (mass/volume) Urine urobilinogen measurement by test strip (mass/volume) 0.2 0.2 - 1 08/29/2017 [facility] Lactic Acid Level 6.9 4.5 - 19.8 08/29/2017 [facility] Shoulder w contrast MRI Shoulder w contrast MRI EXAMINATION: MR right shoulder with contrast HISTORY: M75.41 Impingement syndrome of right shoulder; M75.21 Bicipital tendinitis, right shoulder - M75.41 Impingement syndrome of right shoulder; M75.21 Bicipital tendinitis, right shoulder; AGE: 36 years GENDER: Male COMPARISON: Right shoulder arthrogram 07/23/2017 TECHNIQUE: Multiplanar, multisequence magnetic resonance imaging of the right shoulder is performed with a local coil following the intra-articular administration of contrast which is dictated separately. Transverse, oblique coronal, and oblique sagittal images are obtained. FINDINGS: Biceps: The long head of the biceps tendon is visualized to the level of the anchor without evidence of tendinosis or tear. There is no significant tenosynovitis of the long head of the biceps tendon. Labrum: There is no evidence of labral pathology. No paralabral cyst formation. Rotator cuff tendons: The rotator cuff tendons are intact. Mild supraspinatus tendinosis without tear. Muscles: There is normal signal intensity and muscle bulk of the rotator cuff musculature. Acromio-osseous outlet: There is a type 1 acromion without a subacromial spur. The coracoacromial and coracoclavicular ligaments are intact. The acromioclavicular joint appears normal. Bone: There are no acute fractures. There are no suspicious bone marrow replacing lesions. Cartilage: There is no focal glenohumeral chondral defect. Soft tissue: There is no significant fluid in the subacromial-subdeltoid bursa. A physiologic amount of fluid is present in the glenohumeral joint. The glenohumeral capsule is intact. The inferior glenohumeral ligament is unremarkable..The axilla and visualized portions of the hemithorax are unremarkable. IMPRESSION: 1. Mild supraspinatus tendinosis without tear. 2. No evidence of labral or cartilaginous pathology. 07/23/2017 - - Read by: Matthew Reeder MD Dictated Date/time: 07/23/17 14:33 Electronically Signed by: Matthew Reeder MD 07/23/17 14:41 FINAL REPORT [facility] Inj Arthrogram Shoulder Unilat DX Inj Arthrogram Shoulder Unilat DX EXAM: Inj Arthrogram Shoulder Unilat DX HISTORY: - M75.41 Impingement syndrome of right shoulder COMPARISON: None Fluoro time: 3 seconds. Number of images: 0 exposures, not including last image hold pictures. Findings: Risks, benefits and alternatives of the procedure were explained to the patient and the patient consented. Time out was performed as usual. The right shoulder was prepped and draped in the usual sterile fashion after obtaining consent from the patient. 1% lidocaine without epinephrine was used for local anesthesia. Under fluoroscopic guidance, a 25 gauge needle was introduced into the right shoulder joint. Approximately 10 cc of a mixture of gadolinium and Omnipaque-300 was infused. The needle was removed and there were no immediate complications. Patient was taken to the MR suite for MR arthrogram. IMPRESSION: Intraarticular gadolinium injection of the right shoulder for MR arthrogram. 07/23/2017 - - Read by: Wilder Wilson MD Dictated Date/time: 07/23/17 13:32 Electronically Signed by: Wilder Wilson MD 07/23/17 13:33 FINAL REPORT [facility] Serum or plasma magnesium measurement (mass/volume) Serum or plasma magnesium measurement (mass/volume) 1.3 1.3 - 2.1 01/25/2017 [facility] Bacterial urine culture Bacterial urine culture Urine Culture [facility] Vital Signs Vital Sign Value Date Comments Source Encounters Location Location Details Encounter Type Encounter Number Reason For Visit Attending Provider ADM Date DC Date Status Source Discharged Inpatient [id number] ABHIJIT LLOYD MD 01/25/2017 01/30/2017 [facility] Outpatient [id number] Kenzie Mancilla 06/02/2017 [facility] Di[facility] Services [id number] Joaquín Ha 07/23[facility]2017 [facility] [id number] ABHIJIT LLOYD MD 08/29/2017 09/01/2017 [facility] Outpatient [id number] REAGAN GARVIN 12/01/2017 Active [facility] Procedures Procedure Code Date Perfomer Comments Source CT of abdomen and pelvis without contrast [id number] 01/24/2017 [facility]
--- OUTSIDE RECORDS SUMMARY | 2018-05-03 14:12 | XMS REPORT | Clinical Summary ---
Author Author Alejandro Baptism Organization [facility] Address Unknown Phone Unavailable Care Team Providers Care Computer Systems Design Analyst Name Role Phone Donald Potts MD PCP Allergies Comments Active Allergy Reactions Severity Noted Date CT contrast. IV dye. Excessive sneezing. Dye 03/17/2016 Medications End Date Status Medication Sig Dispensed Refills Start Date Active calcium carbonate (TUMS) Chew 1 tablet 0 200 mg calcium (500 mg) daily. chewable tablet Active cholecalciferol, vitamin Take 2,000 0 D3, (VITAMIN D3) 2,000 Units by unit capsule capsule mouth daily. Active ciprofloxacin (CIPRO) 500 Take 500 mg 0 MG tablet by mouth nightly. Active metoprolol tartrate Take 25 mg by 0 (LOPRESSOR) 25 mg tablet mouth 2 (two) times a day. Active AMLODIPINE BESYLATE Take 10 mg by 0 (AMLODIPINE ORAL) mouth every morning. Active DOXYCYCLINE HYCLATE ORAL Take 100 mg 0 by mouth 2 (two) times a day. Active LACTOBACILLUS ACIDOPHILUS Take 1 tablet 0 (PROBIOTIC ORAL) by mouth daily. Active insulin ASPART (NovoLOG) Inject 5 0 100 unit/mL injection Units under the skin 3 (three) times a day before meals. Active insulin DETEMIR (LEVEMIR) Inject 30 0 100 unit/mL (3 mL) Units under insulin pen the skin nightly. 05/05/2017 HYDROcodone-acetaminophen Take 1 tablet 30 tablet 0 (NORCO) 5-325 mg per by mouth 8 tablet every 6 (six) hours as needed for moderate pain for up to 14 days. 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 Last Filed Vital Signs Not on file Plan of Treatment Health Maintenance Due Date Last Done Comments INFLUENZA VACCINE 09/23/2017 Implants Device Identifier Shelf Expiration Date Model / Serial / Lot Implanted Type Area Manufactur er 11/22/2025 [id number] / / [id number] Screw Bone Canc Dome 6.5x25mm Ltxf Hip Joint Right: Knee DEPUY [place] - [id number] Implants ORTHO Implanted: Qty: 1 on 03/27/2016 by Silke Chowdary MD 01/22/2026 [id number] / / [id number] Screw Bone Canc Dome 6.5x25mm Ltxf Hip Joint Right: Knee DEPUY [place] - [id number] Implants ORTHO Implanted: Qty: 1 on 03/27/2016 by Silke Chowdary MD 10/23/2026 [id number] / / [id number] [place] Stem [id number] Fluted - IPM Right: Knee DEPUY [id number] IMPLANT ORTHOPAEDI Implanted: Qty: 1 on 04/16/2017 by [employer] Silke Chowdary MD 12/23/2026 [id number] / / [id number] [place] Fem Slv Ful Por 40mm - IPM Right: Knee DEPUY [id number] IMPLANT ORTHOPAEDI Implanted: Qty: 1 on 04/16/2017 by [employer] Silke Chowdary MD 11/22/2025 62 3810 / / [id number] Xs/S/ 10mm - IPM Right: Knee DEPUY [id number] IMPLANT ORTHOPAEDI Implanted: Qty: 1 on 04/16/2017 by [employer] Silke Chowdary MD 11/22/2024 62 3810 / / [id number] Sr Nr Dist Aug Xs/S/ 10mm - IPM Right: Knee DEPUY [id number] IMPLANT ORTHOPAEDI Implanted: Qty: 1 on 04/16/2017 by [employer] Silke Chowdary MD 10/23/2021 [id number] / / [id number] Sr Nrfem W/Pin Med Rt 71x66 - IPM Right: Knee DEPUY [id number] IMPLANT ORTHOPAEDI Implanted: Qty: 1 on 04/16/2017 by [employer] Silke Chowdary MD 10/24/2019 [facility] 27 331 / / [id number] Lps Univ Tib Hin Ins Med 31mm - IPM Right: Knee DEPUY [id number] IMPLANT ORTHOPAEDI Implanted: Qty: 1 on 04/16/2017 by [employer] Silke Chowdary MD 01/22/2026 [id number] / / [id number] Augment Fml P.F.C Sigma Distl Rt Sz Knee Joint Right: Knee DEPUY 5 4mm - [id number] Implants ORTHO Implanted: Qty: 1 on 03/27/2016 by Silke Chowdary MD 01/22/2026 [id number] / / [id number] Stem Tib Cementd 09h18pj P.F.C Knee Joint Right: Knee DEPUY Sigma - [id number] Implants ORTHO Implanted: Qty: 1 on 03/27/2016 by Silke Chowdary MD 10/22/2020 [id number] / / [id number] Augment Fml P.F.C Sigma Distl Rt Sz Knee Joint Right: Knee DEPUY 5 8mm - [id number] Implants ORTHO Implanted: Qty: 1 on 03/27/2016 by Silke Chowdary MD 09/22/2025 [id number] / / [id number] Stem Tib Cementd [id number] Knee Joint Right: Knee DEPUY P.F.C.Sigma - [id number] Implants ORTHO Implanted: Qty: 1 on 03/27/2016 by Silke Chowdary MD 12/23/2020 [id number] / / [id number] [place] Prosths Oval / Dome 3-Post Knee Joint Right: Knee DEPUY 38mm Std Uhmwpe - [id number] Implants ORTHO Implanted: Qty: 1 on 03/27/2016 by Silke Chowdary MD 05/23/2020 [id number] / / [id number] Insert Tib Stblzd Rp Sz 5 25mm Knee Joint Right: Knee DEPUY P.F.C Sigma - [id number] Implants ORTHO Implanted: Qty: 1 on 03/27/2016 by Silke Chowdary MD 02/22/2026 [id number] / / [id number] Tray Rev Mbt 5x53.1x80.6x61.8mm - Knee Joint Right: Knee DEPUY [id number] Implants ORTHO Implanted: Qty: 1 on 03/27/2016 by Silke Chowdary MD 09/22/2025 [id number] / / [id number] Component Fml Rt N-Por Tc3 Sz 5 Knee Joint Right: Knee DEPUY 90d58qz P.F.C Sigma - [id number] Implants ORTHO Implanted: Qty: 1 on 03/27/2016 by Silke Chowdary MD 01/22/2026 [id number] / / [id number] Adapter Fml P.F.C Sigma 5deg - Knee Joint Right: Knee DEPUY [id number] Implants ORTHO-KNEE Implanted: Qty: 1 on 03/27/2016 by Silke Gutierres MD 11/22/2025 [id number] / / [id number] Adapter Fml P.F.C Sigma Ofst [place] Knee Joint Right: Knee DEPUY +2/-2mm - [id number] Implants ORTHO-KNEE Implanted: Qty: 1 on 03/27/2016 by Silke Gutierres MD 01/22/2017 [id number] / / [id number] Cement Bone Hiviscocty 40gr Surgical Right: Knee DEPUY Smartset - [id number] Bone ORTHO Implanted: Qty: 2 on 03/27/2016 by Silke Monge MD 12/23/2016 [id number] / / [id number] Cement Bone Hiviscocty 40gr Surgical Right: Knee DEPUY Smartset - [id number] Bone ORTHO Implanted: Qty: 1 on 03/27/2016 by Silke Monge MD 10/23/2018 [id number] / / [id number] Cement Bone Hiviscocty 40gr Surgical Right: Knee DEPUY Smartset - [id number] Bone ORTHO Implanted: 04/16/2017 (Quantity not Cement on file) 12/24/2020 [id number] / / [id number] Cement Bone Prep Univl Insrtr Sculp Surgical Right: Knee SANDOR Fml [place] Suct Sm - [id number] Implants; INSTRUMENT Implanted: Qty: 1 on 03/27/2016 by [employer]; S Silke Chowdary MD Extenders; Surgical Wires [id number] / / Immobilizer Knee Tripnl Dlx W/ Sofial Surgical N/A: N/A DEROYAL Strp Univl Canvas 24in - [id number] Implants; INDUSTRIES Implanted: 04/16/2017 (Quantity not Expanders; on file) Extenders; Surgical Wires Results Not on fileafter 05/02/2017 Insurance Payer Benefit Subscriber ID Type Phone Address Plan / Group WORKERS COMP PARADIGM xxxxxxxxxxxxxxx Workers HEALTH xxxxx Comp ARNAV Guarantor Name Account Relation to Date of Phone Billing Address Type Patient [id number] Workers Employer 02/23/1900 [id number] [employer] Comp (Home) [address] [place] [address] Sukh Lozano Personal/F Self 1980 [id number] [employer] amily (Home) [address] [place] [address] Sukh Lozano Third Self 1980 [id number] [employer] Libert[employer] (Home) [address] [address] Advance Directives Patient has advance care planning documents on file. For more information, leydi e contact: Alejandro Arias [address] [place] [address]
--- OUTSIDE RECORDS SUMMARY | 2018-05-03 14:12 | XMS REPORT | Summary of Care ---
Author Author [facility] Outpatient Imaging [facility] Address Unknown Phone Unavailable Encounter HQ Encntr_alias(FIN) [id number] Date(s): 07/23/17 - 07/23/17 [facility] Outpatient [address] [phone] Discharge Disposition: Home or Self Care Attending Physician: Joaquín Ha MD Vital Signs No data available for [...]
--- OUTSIDE RECORDS SUMMARY | 2018-05-03 14:12 | XMS REPORT ---
Author [facility] Address Unknown Phone Unavailable Care Team Providers Care Wholesaler Name Role Phone Alexandre MARSH Unavailable Unavailable Yayo HILLS Unavailable Unavailable Problems This patient has no known problems. Allergies, Adverse Reactions, Alerts This patient has no known allergies or adverse reactions. Medications This patient has no known medications. Results Test Description Test Time Test Comments Text Results Atomic Results Result Comments CHEST SINGLE (PORTABLE) 2017-08-29 01:52:00 [place] [address] Patient Name: MANJIT LUO MR #: [id number] : 1980 Age/Sex: 37/M Req #: [id number] Adm Physician: Ordered by: MARIELLE MARSH MD Report #: [id number] Location: ER Room/Bed: Procedure: [id number] DX/CHEST SINGLE (PORTABLE) Exam Date: 08/29/17 Exam Time: 0140 REPORT STATUS: Signed EXAM: CHEST SINGLE (PORTABLE), AP 1 view INDICATION: Weakness, fever, UTI COMPARISON: AP view of the chest July 31, 2016 FINDINGS: LINES/TUBES: None LUNGS: No consolidations or edema. PLEURA: No effusions or pneumothorax. HEART AND MEDIASTINUM: Normal size and contour. BONES AND SOFT TISSUES: No acute findings. IMPRESSION: No acute thoracic abnormality. Signed by: Dr. Cheikh Beltran M.D. on 08/29/2017 1:53 AM Dictated By: CHEIKH BELTRAN MD 2 Transcribed By: TIFFANY on 08/29/17152 COPY TO: MARIELLE MARSH MD CT ABDOMEN/PELVIS WO [place] [address] Patient Name: MANJIT LUO MR #: [id number] : 1980 Age/Sex: 36/M Req #: [id number] Adm Physician: Ordered by: MARGAUX HILLS MD Report #: [id number] Location: ER Room/Bed: Procedure: [id number] CT/CT ABDOMEN/PELVIS WO Exam Date: 01/25/17 Exam Time: 221 REPORT STATUS: Signed EXAM: CT Abdomen and Pelvis WITHOUT contrast INDICATION: Flank pain, stone protocol COMPARISON: None. TECHNIQUE: Abdomen and pelvis were scanned utilizing a multidetector helical scanner from the lung base to the pubic symphysis without administration of IV contrast. Absence of intravenous contrast decreases sensitivity for detection of focal lesions and vascular pathology. Coronal and sagittal reformations were obtained. Stone protocol is performed. IV CONTRAST: None. ORAL CONTRAST: None RADIATION DOSE: Total DLP: 586.91 mGy*cm Estimated effective dose: (DLP x 0.015 x size factor) mSv COMPLICATIONS: None FINDINGS: LINES and TUBES: None. LOWER THORAX: Unremarkable HEPATOBILIARY: No focal hepatic lesions. No biliary ductal dilation. GALLBLADDER: There are cholecystectomy clips. SPLEEN: No splenomegaly. PANCREAS: No focal masses or ductal dilatation. Scattered regional calcifications noted along the pancreas. ADRENALS: No adrenal nodules KIDNEYS/URETERS: Bilateral hydronephrosis and hydroureter continuously to the level of the urinary bladder wall. No cystic or solid mass lesions. No stones. GI TRACT: No abnormal distention, wall thickening, or evidence of bowel obstruction. Appendix is normal. PELVIC ORGANS/BLADDER: The urinary bladder is diffusely thickened measuring 1.6 cm in diameter throughout with mild increase in wall thickening anteriorly. LYMPH NODES: No lymphadenopathy. VESSELS: There is mild atherosclerotic disease in the aorta and major arterial branches. PERITONEUM / RETROPERITONEUM: No free air or fluid. BONES: Unremarkable. SOFT TISSUES: Unremarkable. IMPRESSION: 1. Changes related to chronic pancreatitis. 2. Bilateral hydronephrosis and hydroureters with circumferentially thickened urinary bladder suggestive of chronic ascites versus less likely developing diffuse transitional cell carcinoma. No evidence of stones. 3. Cholecystectomy Signed by: Dr. Jose M Benavides M.D. on 01/25/2017 1:35 AM Dictated By: JOSE M GONSALVES MD 4 Transcribed By: TIFFANY on 01/25/17134 COPY TO: MARGAUX HILLS MD
[2018-05-03] MEDS ORDERED: SODIUM CHLORIDE 0.9% 1000ML 1,000 ML IV STA (15:01)
[2018-05-03 15:13] LABS: BASOPHILS % 0.3 % (0.0-1.0); EOSINOPHILS # (AUTO) 0.1 (0.0-0.4); EOSINOPHILS % 2.2 % (0.0-6.0); HEMATOCRIT 32.2 % (38.2-49.6); HEMOGLOBIN 10.4 g/dL (14.0-18.0); LYMPHOCYTES # (AUTO) 1.3 (1.0-3.2); LYMPHOCYTES % 21.7 % (18.0-39.1); MEAN CORPUSCULAR HEMOGLOBIN 26.9 pg (28-32); MEAN CORPUSCULAR HGB CONC 32.3 g/dL (31-35); MEAN CORPUSCULAR VOLUME 83.2 fL (81-99); MONOCYTES # (AUTO) 0.3 (0.2-0.8); MONOCYTES % 5.2 % (4.4-11.3); NEUTROPHILS # (AUTO) 4.1 (2.1-6.9); NEUTROPHILS % 69.9 % (38.7-80.0); PLATELET COUNT 146 x10e3/uL (140-360); RED BLOOD COUNT 3.87 x10e6/uL (4.3-5.7); RED CELL DISTRIBUTION WIDTH 14.9 % (11.7-14.4)
[2018-05-03] MEDS ORDERED: MORPHINE SULFATE INJ 4 MG/ML INJ 1ML IV ONE (15:15)
[2018-05-03] MEDS ORDERED: ONDANSETRON HCL INJ 2MG/ML 2ML 2 MG/ML VIAL IV ONE (15:15)
[2018-05-03 15:30] LABS: ALBUMIN/GLOBULIN RATIO 0.6 (0.8-2.0); ANION GAP 12.3 mmol/L (8-16); CALCIUM 7.8 mg/dL (8.4-10.2); CREATININE, SERUM 2.93 mg/dL (0.72-1.25)
[2018-05-03 15:32] LABS: POTASSIUM 5.3 mmol/L (3.5-5.1)
--- NOTE | 2018-05-03 16:48 | Diagnostic Imaging Report ---
EXAMINATION: CHEST SINGLE (NOT PORTABLE) INDICATION: Weakness. Fever. Chills. COMPARISON: Chest x-ray 08/29/2017. FINDINGS: AP view TUBES and LINES: None. LUNGS: Lungs are well inflated. Lungs are clear. There is no evidence of pneumonia or pulmonary edema. PLEURA: No pleural effusion or pneumothorax. HEART AND MEDIASTINUM: The cardiomediastinal silhouette is unremarkable. BONES AND SOFT TISSUES: No acute osseous lesion. Soft tissues are unremarkable. UPPER ABDOMEN: No free air under the diaphragm. IMPRESSION: No acute thoracic abnormality. Signed by: Dr. Jimmy Huang M.D. on 05/03/2018 4:45 PM
--- NOTE | 2018-05-03 18:41 | Diagnostic Imaging Report ---
EXAMINATION: CT of the abdomen and pelvis without contrast. TECHNIQUE: Spiral CT images of the abdomen and pelvis were performed from the lung bases to the lesser trochanters. No intravenous contrast was given due to decreased GFR and history of iodine allergy. Coronal and sagittal reformatted images were obtained. COMPARISON: CT abdomen and pelvis without contrast 01/25/2017 CLINICAL HISTORY:Vomiting, mid abdominal pain for 2 days DISCUSSION: ABSENCE OF INTRAVENOUS CONTRAST DECREASES SENSITIVITY FOR DETECTION OF FOCAL LESIONS AND VASCULAR PATHOLOGY. ABDOMEN/PELVIS: LOWER THORAX: Unremarkable. HEPATOBILIARY: No focal hepatic lesions. No intra or extrahepatic biliary ductal dilation. GALLBLADDER: Cholecystectomy clips. SPLEEN: No splenomegaly. PANCREAS: No interval change in multiple dystrophic calcifications predominantly involving the head, and to a lesser degree, body and tail, likely sequela of chronic pancreatitis. No focal mass or ductal dilation. No peripancreatic inflammatory changes. ADRENALS: No adrenal nodules. KIDNEYS/URETERS: No hydronephrosis, stones, or contour abnormalities. . PELVIC ORGANS/BLADDER: Bladder is decompressed and there is a suprapubic catheter in place. Stable diffuse wall thickening. PERITONEUM/RETROPERITONEUM: No free air or fluid. LYMPH NODES: No intra-abdominal,retroperitoneal, pelvic or inguinal lymphadenopathy. VESSELS: Mild atherosclerotic calcification of the distal abdominal aorta. GI TRACT: No bowel dilation or evidence of obstruction. No pericolonic inflammatory changes. Appendix is well identified and normal in caliber. BONES AND SOFT TISSUES: No bony destructive lesions. No soft tissue abnormalities. IMPRESSION: 1. No acute abdominopelvic abnormalities, within the limitations of this noncontrast exam. No bowel dilation or evidence of obstruction. 2. Stable pancreas findings consistent with sequela of chronic pancreatitis Signed by: Dr. Isma Crenshaw M.D. on 05/03/2018 6:38 PM
[2018-05-03] MEDS ORDERED: ONDANSETRON HCL INJ 2MG/ML 2ML 2 MG/ML VIAL ONE (22:05)
[2018-05-03] MEDS ORDERED: SODIUM CHLORIDE 0.9% 1000ML 1,000 ML ONE ×2 (22:05→23:56)
[2018-05-03] MEDS: SODIUM CHLORIDE 0.9% 1000ML 1,000 ML IV SCH (23:00)
[2018-05-03] MEDS ORDERED: MORPHINE SULFATE INJ 4 MG/ML INJ 1ML IV STA (23:37)
[2018-05-03] MEDS ORDERED: PROMETHAZINE 25MG/ NS 50ML (IV) IV ONE (23:45)
[2018-05-03] MEDS ORDERED: PROMETHAZINE 12.5MG/ NACL 0.9% 12.5 MG/50 ML BAG IV ONE (23:45)
[2018-05-04 01:16] LABS: INFLUENZAE A&B ANTIGEN (RAPID) NEGATIVE (NEGATIVE); STREPTOCOCCUS GRP A ANTIGEN NEGATIVE (NEGATIVE)
[2018-05-04 01:31] LABS: BILIRUBIN,URINE NEGATIVE (NEGATIVE); CLARITY,URINE CLOUDY (CLEAR); COLOR,URINE YELLOW (YELLOW); KETONES,URINE NEGATIVE (NEGATIVE); LEUKOCYTE ESTERASE ,URINE 2+ (NEGATIVE); NITRITE,URINE POSITIVE (NEGATIVE); PROTEIN,URINE DIPSTICK 3+ (NEGATIVE); URINE UROBILINOGEN 0.2 mg/dL (0.2 - 1); WBC,URINE (MAN) >50 /HPF (0-5)
[2018-05-04 01:32] LABS: BACTERIA,URINE MANY /HPF; EPITHELIAL CELLS,URINE RARE /LPF; RBC,URINE 21-50 /HPF (0-5)
[2018-05-04] MEDS ORDERED: DEXTROSE 50% SYRINGE 50 ML IV PRN (01:45)
[2018-05-04] MEDS ORDERED: MEROPENEM 1GRAM 1 GM in SODIUM CHLORIDE 0.9% 100 ML 100 ML IV SCH ×2 (01:45→10:00)
[2018-05-04] MEDS ORDERED: MORPHINE SULFATE 2 MG/ML SYR 1ML IV PRN (01:45)
--- OUTSIDE RECORDS SUMMARY | 2018-05-04 01:49 | XMS REPORT | Clinical Summary ---
Author Author Alejandro Baptism Organization [facility] Address Unknown Phone Unavailable Care Team Providers Care Motor Coach Chauffeur Name Role Phone Donald Potts MD PCP [...] Lot Implanted Type Area Manufactur er 11/22/2025 [id number] / / [id number] Screw Bone Canc Dome 6.5x25mm Ltxf Hip Joint Right: Knee DEPUY [place] - [id number] Implants ORTHO Implanted: Qty: 1 on 03/27/2016 by Silke Chowdary MD 01/22/2026 [id number] / / [id number] Screw Bone Canc Dome 6.5x25mm Ltxf Hip Joint Right: Knee DEPUY [place] - [id number] Implants ORTHO Implanted: Qty: 1 on 03/27/2016 by Silke Chowdary MD 10/23/2026 86 [id number] / / [id number] [place] Stem [id number] Fluted - IPM Right: Knee DEPUY [id number] IMPLANT ORTHOPAEDI Implanted: Qty: 1 on 04/16/2017 by [employer] Silke Chowdary MD 12/23/2026 [id number] 236 / / [id number] [place] Fem Slv Ful Por 40mm - IPM Right: Knee DEPUY [id number] IMPLANT ORTHOPAEDI Implanted: Qty: 1 on 04/16/2017 by [employer] Silke Chowdary MD 11/22/2025 62 3810 / / [id number] [facility] Dist Aug Xs/S/ 10mm - IPM Right: Knee DEPUY [id number] IMPLANT ORTHOPAEDI Implanted: Qty: 1 on 04/16/2017 by [employer] Silke Chowdary MD 11/22/2024 62 3810 / / [id number] Sr Nr Dist Aug Xs/S/ 10mm - IPM Right: Knee DEPUY [id number] IMPLANT ORTHOPAEDI Implanted: Qty: 1 on 04/16/2017 by [employer] Silke Chowdary MD 10/23/2021 [id number] / / [id number] Sr Nrfem W/Pin Med Rt 71x66 - IPM Right: Knee DEPUY [id number] IMPLANT ORTHOPAEDI Implanted: Qty: 1 on 04/16/2017 by [employer] Silke Chowdary MD 10/24/2019 [facility] 27 331 / / [id number] Lps Univ Tib Hin Ins Med 31mm - IPM Right: Knee DEPUY [id number] IMPLANT ORTHOPAEDI Implanted: Qty: 1 on 04/16/2017 by [employer] Silke Chowdary MD 01/22/2026 [id number] / / [id number] Augment Fml P.F.C Sigma Distl Rt Sz Knee Joint Right: Knee DEPUY 5 4mm - [id number] Implants ORTHO Implanted: Qty: 1 on 03/27/2016 by Silke Chowdary MD 01/22/2026 [id number] / / [id number] Stem Tib Cementd 09z87ck P.F.C Knee Joint Right: Knee DEPUY Sigma - [id number] Implants ORTHO Implanted: Qty: 1 on 03/27/2016 by Silke Chowdary MD 10/22/2020 [id number] / / [id number] Augment Fml P.F.C Sigma Distl Rt Sz Knee Joint Right: Knee DEPUY 5 8mm - [id number] Implants ORTHO Implanted: Qty: 1 on 03/27/2016 by Silke Chowdary MD 09/22/2025 [id number] / / [id number] Stem Tib Cementd 07s91zf Knee Joint Right: Knee DEPUY P.F.C.Sigma - [id number] Implants ORTHO Implanted: Qty: 1 on 03/27/2016 by Silke Chowdary MD 12/23/2020 [id number] / / [id number] Patella Prosths Oval / Dome 3-Post Knee Joint Right: Knee DEPUY 38mm Std Uhmwpe - [id number] Implants ORTHO Implanted: Qty: 1 on 03/27/2016 by Silke Chowdary MD 05/23/2020 [id number] / / [id number] Insert Tib Stblzd Rp Sz 5 25mm Knee Joint Right: Knee DEPUY P.F.C Sigma - [id number] Implants ORTHO Implanted: Qty: 1 on 03/27/2016 by Silke Chowdary MD 02/22/2026 [id number] / / [id number] Tray Rev Mbt 5x53.1x80.6x61.8mm - Knee Joint Right: Knee DEPUY [id number] Implants ORTHO Implanted: Qty: 1 on 03/27/2016 by Silke Chowdary MD 09/22/2025 [id number] / / [id number] Component Fml Rt N-Por Tc3 Sz 5 Knee Joint Right: Knee DEPUY 10d87ew P.F.C Sigma - [id number] Implants ORTHO Implanted: Qty: 1 on 03/27/2016 by Silke Chowdary MD 01/22/2026 [id number] / / [id number] Adapter Fml P.F.C Sigma 5deg - Knee Joint Right: Knee DEPUY [id number] Implants ORTHO-KNEE Implanted: Qty: 1 on 03/27/2016 by Silke Gutierres MD 11/22/2025 [id number] / / [id number] Adapter Fml P.F.C Sigma Ofst [place] Knee Joint Right: Knee DEPUY +2/-2mm - [id number] Implants ORTHO-KNEE Implanted: Qty: 1 on 03/27/2016 by Silke Gutierres MD 01/22/2017 [id number] / / [id number] Cement Bone Hiviscocty 40gr Surgical Right: Knee DEPUY Smartset - [id number] Bone ORTHO Implanted: Qty: 2 on 03/27/2016 by Silke Monge MD 12/23/2016 [id number] / / [id number] Cement Bone Hiviscocty 40gr Surgical Right: Knee DEPUY Smartset - [id number] Bone ORTHO Implanted: Qty: 1 on 03/27/2016 by Silke Monge MD 10/23/2018 [id number] / / [id number] Cement Bone Hiviscocty 40gr Surgical Right: Knee DEPUY Smartset - [id number] Bone ORTHO Implanted: 04/16/2017 (Quantity not Cement on file) 12/24/2020 [id number] / / [id number] Cement Bone Prep Univl Insrtr Sculp Surgical Right: Knee SANDOR Fml [place] Suct Sm - [id number] Implants; INSTRUMENT Implanted: Qty: 1 on 03/27/2016 by [employer]; S Silke Chowdary MD Extenders; Surgical Wires [id number] / / Immobilizer Knee Tripnl Dlx W/ Sofial Surgical N/A: N/A DEROYAL Strp Univl Canvas 24in - [id number] Implants; INDUSTRIES Implanted: 04/16/2017 (Quantity not Expanders; on file) Extenders; Surgical Wires Results Not on fileafter 05/03/2017 Insurance Payer Benefit Subscriber ID Type Phone Address Plan / Group WORKERS COMP PARADIGM xxxxxxxxxxxxxxx Workers HEALTH xxxxx Comp ARNAV Guarantor Name Account Relation to Date of Phone Billing Address Type Patient [id number] Workers Employer 02/23/1900 [id number] [employer] Comp (Home) [address] [place] [address] Sukh Lozano Personal/F Self 1980 [id number] [employer] amily (Home) [address] [place] [address] Sukh Lozano Third Self 1980 [id number] [employer] (Home) [address] [address] Advance Directives Patient has advance care planning documents on file. For more information, leydi e contact: Alejandro Arias [address] [place] [address]
[2018-05-04] MEDS ORDERED: MEROPENEM 1 GM VIAL ONE (02:08)
[2018-05-04] MEDS ORDERED: SODIUM CHLORIDE 0.9% 100 ML ONE (02:09)
[2018-05-04] MEDS: INSULIN REGULAR, HUMAN 100 UNIT/1 ML 3ML VIAL SQ SCH ×4 (09:27→21:00)
[2018-05-04] MEDS: SODIUM CHLORIDE 0.9% 1000ML 1,000 ML IV SCH ×2 (09:42→17:20)
[2018-05-04] MEDS: MEROPENEM 1GM 100 ML IV SCH ×2 (09:47→17:20)
[2018-05-04] MEDS: ONDANSETRON HCL INJ 2MG/ML 2ML 2 MG/ML VIAL IV PRN ×2 (09:51→16:17)
[2018-05-04] MEDS: MORPHINE SULFATE INJ 4 MG/ML INJ 1ML IV PRN ×3 (09:51→22:12)
--- NOTE | 2018-05-04 14:04 | NUR ---
PT SLEEPING IN BED MAKES NO COMPLAINTS AT THIS TIME
--- NOTE | 2018-05-04 15:35 | NUR ---
PER DR RAMIRES ORDER PROCARDIA XL 30 MG QD WITH 30 MG NOW, CLEAR LIQUID DIET ADVANCED TOLERATED, CMP
[2018-05-04] MEDS ORDERED: NIFEDIPINE CR 30 MG TAB PO NR (15:45)
--- NOTE | 2018-05-04 17:05 | NUR ---
PT ATE ENTIRE TRAY
--- NOTE | 2018-05-04 17:12 | NUR ---
PT BP 152/100 P 90 ASYMPTOMATIC HTN DENIES ALL COMPLAINTS
--- NOTE | 2018-05-04 17:20 | NUR ---
PT RESTING COMFORTABLY IN BED MAKES NO COMPLAINTS AT THIS TIME
[2018-05-04 17:26] LABS: ALBUMIN 2.6 g/dL (3.5-5.0); ALBUMIN/GLOBULIN RATIO 0.6 (0.8-2.0); ANION GAP 9.1 mmol/L (8-16); CREATININE, SERUM 2.37 mg/dL (0.72-1.25)
[2018-05-04 17:27] LABS: POTASSIUM 5.1 mmol/L (3.5-5.1)
--- NOTE | 2018-05-04 17:51 | NUR ---
PT PUT IN HOSP BED RESTING COMFORTABLY MAKES NO COMPLAINT AT THIS TIME
--- NOTE | 2018-05-04 17:55 | NUR ---
pt bp 159/105 p 86 asymptomatic
--- NOTE | 2018-05-04 18:55 | NUR ---
pt bp 152/104 p 87 asyptomatic
--- NOTE | 2018-05-04 19:21 | NUR ---
walking round done with KENJI Acevedo
--- NOTE | 2018-05-04 22:00 | NUR ---
Patient received from ER via bed. Admission history obtained. Initial physical assessment performed. Patient is AAO x 4. Patient complained of pain to lower back. Will administer medication according to eMAR. No signs of respiratory distress. Suprapubic catheter draining pale yellow urine into li bag. . IVF infusing at 125 cc / hr. Patient oriented to room, call light and plan of care. Fall precautions in place. Patient instructed to call for assistance when needed. Call light within reach.
[2018-05-04] MEDS: GABAPENTIN 300 MG CAP PO SCH (22:12)
[2018-05-04 22:30] VITALS: BP 164/95
[2018-05-04 22:35] VITALS: BP 164/95
--- NOTE | 2018-05-04 22:35 | NUR ---
Patient declines offer of "Flu" vaccination stating he has flu-like symptoms.
[2018-05-04] MEDS ORDERED: NIFEDIPINE ER30 M1 (23:47)
[2018-05-04] MEDS ORDERED: VYZULTA OP (23:47)
[2018-05-05] VITALS (7 sets, daily range): BP systolic 115–137; BP diastolic 69–94
[2018-05-05] MEDS: MEROPENEM 1GM 100 ML IV SCH ×3 (02:00→18:36)
--- NOTE | 2018-05-05 03:14 | History and Physical ---
CHIEF COMPLAINT: Abdominal pain. HISTORY OF PRESENT ILLNESS: This is a 37-year-old male, who has been here several times with history of chronic pancreatitis due to alcohol abuse, who comes into the ED with complaints of nausea, vomiting, dehydration, and abdominal pain. The patient reports that it has been ongoing for the last 2-3 days. Reports that the pain has been progressively worsened and he presented to the ED for further evaluation. The patient had a CT scan that showed chronic pancreatitis findings. The patient currently is dehydrated during my evaluation. Vital signs stable when I saw him. REVIEW OF SYSTEMS: Pertinent Positives: Nausea, vomiting, abdominal pain, and dehydration. Pertinent Negatives: Denies any chest pain, palpitation, dysuria, hematuria, frequency, urgency, lightheadedness, dizziness, headaches, shortness of breath, cough, congestion, fever, or any other complaints. Rest of 14-point review of systems has been reviewed with the patient and is negative. ALLERGIES: TO ORAL AND IV CONTRAST. HOME MEDICATIONS: Amlodipine, gabapentin, NovoLog, and metoprolol. PAST MEDICAL HISTORY: Hypertension, diabetes, peripheral neuropathy, and chronic pancreatitis. PAST SURGICAL HISTORY: Reports none. FAMILY HISTORY: Hypertension and diabetes. SOCIAL HISTORY: No drugs. He was a chronic smoker. LAB FINDINGS: Show white count of 5.9, hemoglobin 10.4, hematocrit 32.2, and platelets of 142. Chemistry; sodium , potassium 5.1, chloride 113, bicarb 28, anion gap of 9, BUN 32, creatinine 2.37, glucose 91, calcium is 7, and albumin is 2.6. Urinalysis is concerning for underlying UTI. Serologies grew negative. Group A strep negative. MICROBIOLOGY: Blood and urine cultures are pending. IMAGING STUDIES: CT abdomen and pelvis shows evidence of chronic pancreatitis, but no evidence of obstruction or bile duct dilatation. Chest x-ray was found to be negative. PHYSICAL EXAMINATION: VITAL SIGNS: Temperature 97.9, pulse 90, respiratory rate is 18, blood pressure 164/95, and pulse ox is 100% on room air. GENERAL: In no acute distress. Alert and oriented x3. Cooperative on examination. HEENT: Normocephalic and atraumatic. Eyes, pupils are round and reactive to light bilaterally. Extraocular movements are intact bilaterally. Throat, no evidence of erythema or exudate in the posterior pharynx. Has poor dentition. NECK: Supple. Good range of motion throughout. PULMONARY: Clear to auscultation bilaterally. No wheezes, rales, rhonchi, or crackles appreciated. CARDIOVASCULAR: Positive S1 and S2. No murmurs, rubs, or gallops appreciated. ABDOMEN: Soft, nondistended, and nontender to palpation. Bowel sounds are present. MUSCULOSKELETAL: Strength is 5/5 throughout. No evidence of any muscles deficits on examination. No weakness appreciated. NEUROLOGIC: Cranial nerves II through XII grossly intact. No evidence of any neurological deficits on exam. SKIN: Intact. Warm to touch. Good cap refill. PSYCHIATRIC: Normal affect and mood. EXTREMITIES: No edema. Good range of motion throughout. IMPRESSION: 1. Abdominal pain, secondary to gjqlo-ip-tmoxzdi pancreatitis. 2. Nausea, vomiting, and dehydration. 3. Hypertension. 4. Type 2 diabetes. PLAN: Continue with n.p.o. for now. Started on clear liquid diet, advance as tolerated. Continue with IV fluids, pain control, antinausea medications, and resume same home medications. Blood pressure slightly elevated, resume same antihypertensive medications. Encourage ambulation. continue plan of care with physician. Get a.m. labs. MD THOMAS Ramos/NOREEN /[id number]
[2018-05-05] MEDS: SODIUM CHLORIDE 0.9% 1000ML 1,000 ML IV SCH ×3 (04:42→18:36)
[2018-05-05 06:00] LABS: ALBUMIN 2.4 g/dL (3.5-5.0); ALBUMIN/GLOBULIN RATIO 0.6 (0.8-2.0); ANION GAP 10.8 mmol/L (8-16); CREATININE, SERUM 2.21 mg/dL (0.72-1.25); POTASSIUM 4.8 mmol/L (3.5-5.1)
[2018-05-05 06:01] LABS: BASOPHILS % 0.5 % (0.0-1.0); EOSINOPHILS # (AUTO) 0.2 (0.0-0.4); EOSINOPHILS % 4.4 % (0.0-6.0); HEMATOCRIT 28.3 % (38.2-49.6); HEMOGLOBIN 9.1 g/dL (14.0-18.0); LYMPHOCYTES % 25.2 % (18.0-39.1); MEAN CORPUSCULAR HEMOGLOBIN 26.8 pg (28-32); MEAN CORPUSCULAR HGB CONC 32.2 g/dL (31-35); MEAN CORPUSCULAR VOLUME 83.2 fL (81-99); MONOCYTES # (AUTO) 0.3 (0.2-0.8); MONOCYTES % 6.9 % (4.4-11.3); NEUTROPHILS # (AUTO) 2.4 (2.1-6.9); NEUTROPHILS % 62.7 % (38.7-80.0); PLATELET COUNT 112 x10e3/uL (140-360); RED CELL DISTRIBUTION WIDTH 14.7 % (11.7-14.4)
[2018-05-05 06:21] LABS: CALCIUM 6.8 mg/dL (8.4-10.2)
--- NOTE | 2018-05-05 06:38 | NUR ---
Dr. Haider Jalloh paged for notification of "Stat Consult". Awaiting call back.
--- NOTE | 2018-05-05 07:42 | NUR ---
Dr. Vidal paged regarding patient's current home medications and critical low calcium level (6.8). Order received to discontinue medications (Amlodipine 10 mg and Metoprolol 25 mg) that patient no longer takes and resume current home medications. An order was received to give 2 g Calcium Gluconate for low calcium levels.
--- NOTE | 2018-05-05 08:18 | NUR ---
0700RECEIVED BEDSIDE REPORT FROM CORK INSULATOR HELPER RN. PT DENIES NEEDS AT THIS TIME.INSTRUCTED PT TO CALL WHEN NEEDED.SAFETY MAINTAINED.CALL LIGHT WITH IN REACH. [id number] PER DR. RAMIRES STOPPED PROCARDIA 30 MG TAB AND CONTINUE WITH 60 MG TAB
[2018-05-05] MEDS: NIFEDIPINE CR 30 MG TAB PO SCH (08:26)
[2018-05-05] MEDS: INSULIN REGULAR, HUMAN 100 UNIT/1 ML 3ML VIAL SQ SCH (08:26)
[2018-05-05] MEDS: GABAPENTIN 300 MG CAP PO SCH ×3 (08:26→21:03)
[2018-05-05] MEDS ORDERED: CALCIUM GLUCONATE 10% INJ 9.3 MEQ in SODIUM CHLORIDE 0.9% 100 ML 100 ML IV ONE (08:30)
--- NOTE | 2018-05-05 08:30 | NUR ---
DR MAY CHANGED SUPRA PUBIC SONG TO 18 GAUGE
[2018-05-05] MEDS ORDERED: DEXTROSE 50% SYRINGE 50 ML IV PRN (09:00)
[2018-05-05] MEDS: VYZULTA 0.024% OP SCH (09:00)
[2018-05-05] MEDS ORDERED: AMLODIPINE BESYLATE 10 MG TAB PO SCH (09:00)
[2018-05-05] MEDS ORDERED: ACETAMINOPHEN 325 MG TAB PO PRN (09:00)
[2018-05-05] MEDS ORDERED: METOPROLOL TARTRATE 25 MG TAB PO SCH (09:00)
[2018-05-05] MEDS ORDERED: NIFEDIPINE CR 30 MG TAB PO SCH ×2 (09:00)
[2018-05-05] MEDS: MORPHINE SULFATE INJ 4 MG/ML INJ 1ML IV PRN ×5 (10:13→22:06)
[2018-05-05] MEDS: ONDANSETRON HCL INJ 2MG/ML 2ML 2 MG/ML VIAL IV PRN ×2 (10:13→15:00)
[2018-05-05] MEDS: INSULIN LISPRO 100 UNIT/1 ML 3ML VIAL SQ SCH ×3 (11:30→21:15)
[2018-05-05 17:43] LABS: ANION GAP 10.3 mmol/L (8-16); CREATININE, SERUM 2.12 mg/dL (0.72-1.25); POTASSIUM 5.3 mmol/L (3.5-5.1)
[2018-05-05 17:48] LABS: CALCIUM 6.9 mg/dL (8.4-10.2)
--- NOTE | 2018-05-05 18:20 | NUR ---
CALLED DR LLOYD AND LEFT A MESSAGE ABOUT PT CALCIUM LEVEL 6.9. WAITING FOR THE RESPONSE.
--- NOTE | 2018-05-05 18:40 | NUR ---
SPOKE TO DR. LLOYD, NO CHANGE IN ORDERS
--- NOTE | 2018-05-05 19:15 | NUR ---
BEDSIDE REPORT GIVEN TO ONCOMING CAGE CLERK RN FOR CONTINUED CARE
--- NOTE | 2018-05-05 19:26 | NUR ---
Patient received lying in bed. AAO x 3. No acute distress noted. IVF infusing at 75 cc /hr. Fall precautions in place. Call light within reach.
[2018-05-06] VITALS (8 sets, daily range): BP systolic 119–160; BP diastolic 71–104
[2018-05-06] MEDS: MEROPENEM 1GM 100 ML IV SCH ×3 (02:29→18:52)
--- NOTE | 2018-05-06 02:37 | Consultation ---
DATE OF CONSULTATION: 05/05/2018 SERVICE: Urology. HISTORY OF PRESENT ILLNESS: This is a 37-year-old patient, who was treated in the past by our service for urethral stricture and had previous procedures including placements of stent and cystoscopy. The patient does have history of atonic bladder and replacement of suprapubic catheter at [facility]. The patient was admitted at this time due to dehydration. He does have a history of recurrent pancreatitis due to alcohol abuse. The patient does have suprapubic tube, which is #16 Danish. REVIEW OF SYSTEMS: Twelve systems reviewed. The patient was complaining about abdominal pain, vomiting, and nausea for about 3 days. Assessment was that he was dehydrated. Twelve systems reviewed except what was mentioned above, everything else appear to be negative. ALLERGIES: IV CONTRAST. HOME MEDICATIONS AND HOSPITAL MEDICATIONS: See MAR. PAST MEDICAL HISTORY: Also significant for: 1. Diabetes mellitus. 2. Hypertension. 3. Peripheral neuropathy. 4. Chronic pancreatitis. 5. Atonic bladder. FAMILY HISTORY: Hypertension and diabetes. SOCIAL HISTORY: No use of drugs. He was a smoker he states in the past. PHYSICAL EXAMINATION: GENERAL: The patient appears to be alert and oriented, does not seem to be in acute distress at the present time. VITAL SIGNS: Blood pressure 160/94, pulse 90, temperature 97.8, and respirations 18. HEENT: Head is NECK: No CHEST: Clear. HEART: Regular. ABDOMEN: Soft. Suprapubic tube, small catheter, #[address] GENITALIA: Unremarkable. EXTREMITIES: Lower extremities, move all. LABORATORY DATA: Reviewed. Calcium low. Creatinine 2.21, BUN 28. Urinalysis, 21-50 red blood cells per high-power field, over 50 white blood cells per high-power field. Hemoglobin 10.4, white count 5.91. IMPRESSION: 1. Atonic neurogenic bladder. 2. History of recurrent pancreatitis. 3. History of urethral stricture. 4. Hypertension. 5. Diabetes mellitus. 6. Dehydration. 7. History of nausea and vomiting. PLAN: I am planning to change the suprapubic tube. We will follow the patient with you. Thank you for the consult. MD HOUSTON Houston/NOREEN /[id number]
[2018-05-06] MEDS: MORPHINE SULFATE INJ 4 MG/ML INJ 1ML IV PRN ×4 (04:14→21:50)
[2018-05-06 06:15] LABS: BASOPHILS % 0.6 % (0.0-1.0); EOSINOPHILS # (AUTO) 0.2 (0.0-0.4); EOSINOPHILS % 5.1 % (0.0-6.0); HEMATOCRIT 27.2 % (38.2-49.6); HEMOGLOBIN 8.6 g/dL (14.0-18.0); LYMPHOCYTES # (AUTO) 0.9 (1.0-3.2); LYMPHOCYTES % 24.8 % (18.0-39.1); MEAN CORPUSCULAR HEMOGLOBIN 26.5 pg (28-32); MEAN CORPUSCULAR HGB CONC 31.6 g/dL (31-35); MEAN CORPUSCULAR VOLUME 83.7 fL (81-99); MONOCYTES # (AUTO) 0.3 (0.2-0.8); MONOCYTES % 8.5 % (4.4-11.3); NEUTROPHILS # (AUTO) 2.1 (2.1-6.9); NEUTROPHILS % 59.6 % (38.7-80.0); PLATELET COUNT 113 x10e3/uL (140-360); RED BLOOD COUNT 3.25 x10e6/uL (4.3-5.7); RED CELL DISTRIBUTION WIDTH 14.6 % (11.7-14.4)
[2018-05-06 06:36] LABS: ANION GAP 9.2 mmol/L (8-16); CREATININE, SERUM 2.22 mg/dL (0.72-1.25); POTASSIUM 5.2 mmol/L (3.5-5.1)
[2018-05-06 06:43] LABS: CALCIUM 6.5 mg/dL (8.4-10.2)
--- NOTE | 2018-05-06 07:00 | NUR ---
SHIFT REPORT FROM NIGHT NURSE AT BEDSIDE. PT DENIES NEEDS AT THIS TIME.
--- NOTE | 2018-05-06 07:00 | NUR ---
RECEIVED BEDSIDE REPORT FROM TIE KNITTER HELPER RN. PT DENIES NEEDS AT THIS TIME.INSTRUCTED PT TO CALL WHEN NEEDED.SAFETY MAINTAINED.CALL LIGHT WITH IN REACH.
--- NOTE | 2018-05-06 07:06 | NUR ---
Shift report given to oncoming nurse.
[2018-05-06] MEDS: INSULIN LISPRO 100 UNIT/1 ML 3ML VIAL SQ SCH ×4 (08:19→20:48)
[2018-05-06] MEDS: GABAPENTIN 300 MG CAP PO SCH ×3 (08:30→20:47)
[2018-05-06] MEDS: VYZULTA 0.024% OP SCH (08:31)
[2018-05-06] MEDS: NIFEDIPINE CR 30 MG TAB PO SCH (08:31)
[2018-05-06] MEDS ORDERED: SOD POLYSTYRENE SULFONATE SUSP 15 GM/60 ML BTL PR NR (09:30)
[2018-05-06] MEDS: SODIUM CHLORIDE 0.9% 1000ML 1,000 ML IV SCH (09:39)
[2018-05-06] MEDS: ONDANSETRON HCL INJ 2MG/ML 2ML 2 MG/ML VIAL IV PRN ×3 (09:40→21:50)
--- NOTE | 2018-05-06 17:46 | NUR ---
Nutrition Screen Note RD Recommendation for Physician: -Rec adding low fat to ADA diet as medically appropriate -RD provided diet education on 05/06. Plan of Care: RD following, monitoring for tolerance and adequacy, diet education Nutrition reason for involvement: MD Consult no reason stated Primary Diagnose(s): Atonic neurogenic bladder, pancreatitis PMH: Hypertension, diabetes, peripheral neuropathy, and chronic pancreatitis Ht: 71in Wt: 210lb BMI: 29.3kg/m2 IBW: 172lb RD Assessment: (05/06) Chart reviewed. Labs and meds reviewed. 37yo M, who was admitted for abdominal pain. Visited pt in room who denied significant wt loss, denied decrease in appetite LINER REROLL TENDER. Pt denied chewing/swallowing problems. Pt complained of some nausea this AM and meds were given. Current diet was well tolerated. RD provided diet education. Will continue to monitor and follow. Current Diet: ADA Malnutrition Evaluation (05/06/2018) The patient does not meet criteria for a specified degree of malnutrition at this time. Will re-evaluate at follow-up as appropriate. Diet Education Needs Assessment: Diet education indicated, pt was agreeable with plan. Learner(s): pt Time spent: 20 mins Barriers: No barriers identified. Cultural/Language Modifications: No cultural/language modifications noted. Pt speaks Filipino. Readiness: Acceptance Method: Handouts, explanation Topics: Low fat diet for pancreatitis Understanding/Compliance: Expect good understanding/compliance from pt. Will benefit from reinforcement. All questions have been answered. Nutrition Care Level: low Signed: Lupe Germain, MS, RD, LD
--- NOTE | 2018-05-06 19:00 | NUR ---
BEDSIDE REPORT GIVEN TO ONCOMING EARTH MOVING MACHINE OPERATOR RN FOR CONTINUED CARE
[2018-05-07] VITALS: BP 142/82
[2018-05-07] MEDS: SODIUM CHLORIDE 0.9% 1000ML 1,000 ML IV SCH (01:05)
[2018-05-07] MEDS: MEROPENEM 1GM 100 ML IV SCH ×2 (01:57→09:00)
[2018-05-07 03:26] VITALS: BP 142/82
[2018-05-07 04:00] VITALS: BP 153/89
--- NOTE | 2018-05-07 07:13 | NUR ---
pt asleep resp even and unlabored at this time, pt easily aroused, to name and touch, pt able to make needs known, call light in reach.
[2018-05-07 08:18] VITALS: BP 153/84
[2018-05-07] MEDS: VYZULTA 0.024% OP SCH (09:00)
[2018-05-07] MEDS: NIFEDIPINE CR 30 MG TAB PO SCH (09:00)
[2018-05-07] MEDS: GABAPENTIN 300 MG CAP PO SCH (09:00)
[2018-05-07] MEDS: INSULIN LISPRO 100 UNIT/1 ML 3ML VIAL SQ SCH ×2 (09:10→11:30)
[2018-05-07 12:02] VITALS: BP 158/99
[2018-05-07] MEDS ORDERED: CEFEPIME HCL 1 GM VIAL IM ONE (14:45)
--- NOTE | 2018-05-07 15:30 | NUR ---
injection given cefepime Im given. pt tolerated well. pt educated on how to use leg bag for Barcenas use. pt demonstrated in return knowledge.
[2018-05-07 16:16] VITALS: BP 123/79
--- NOTE | 2018-05-07 17:45 | NUR ---
pt family member here, pt discharge home with prescriptions and pt was educated on medications pt and family member voice understanding. iv site removed no swelling no redness to site.
--- NOTE | 2018-05-07 19:22 | Discharge Summary ---
CHAMBER WALKER: Castro Jalloh MD FINAL DIAGNOSES: 1. Complicated urinary tract infection, associated with indwelling suprapubic Barcenas catheter. 2. Multi-resistant Pseudomonas aeruginosa bacteria and Enterococcus faecalis bacteria infection. 3. Diabetes type 2, on insulin therapy, associated with neurogenic urinary bladder with suprapubic catheter placement previously. 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 The patient is stable now. He is comfortable. Fever resolved, leukocytosis resolved. The patient had Pseudomonas aeruginosa and Enterococcus faecalis in his urine. The patient had abdominal and pelvic CT scan done, showed no acute abdominal or pelvic abnormality. It is within the normal limits of noncontrast exam. Stable pancreas finding consistent with sequela of previous chronic pancreatitis. The patient is doing much better. His white cell count is normal. He is chronically anemic. His BUN and creatinine are trending down, previously creatinine was 2.9 and now it is 2.2, mostly baseline. His albumin is low, corrected for low calcium level. The patient is stable. His blood sugar is also better controlled with insulin and insulin sliding scale coverage. Blood pressure is better with nifedipine. Overall, the patient is stable. Discharged home with the following instructions: 1. Resume home medication. 2. Ampicillin 5 mg three times a day for 10 days. 3. Cipro 500 mg b.i.d. for 10 days. 4. Nifedipine ER 60 mg once a day. The patient is stable, discharged home. Follow up in approximately 1 week for adjustment of his medication. MD SADA Haywood/MODL /[id number]
== END 2018-05-07 17:46 | disposition home or self-care (01) | DRG 698 ==
LOC: ER 14:08 → ERHOLD 05-04 01:45 → MED/SURG2 05-04 21:30
PROVIDERS: ADMIT Internal Medicine; ATTEND Internal Medicine
DX: T83.510A Infection and inflammatory reaction due to cystostomy catheter, initial encounter (principal); K85.20 Alcohol induced acute pancreatitis without necrosis or infection; N17.9 Acute kidney failure, unspecified; K86.0 Alcohol-induced chronic pancreatitis; R10.9 Unspecified abdominal pain; E87.6 Hypokalemia; E86.0 Dehydration; E11.42 Type 2 diabetes mellitus with diabetic polyneuropathy; N31.2 Flaccid neuropathic bladder, not elsewhere classified; R33.9 Retention of urine, unspecified; R31.29 Other microscopic hematuria; E11.22 Type 2 diabetes mellitus with diabetic chronic kidney disease; I12.9 Hypertensive chronic kidney disease with stage 1 through stage 4 chronic kidney disease, or unspecified chronic kidney disease; N18.3 Chronic kidney disease, stage 3 (moderate); I16.0 Hypertensive urgency; B96.5 Pseudomonas (aeruginosa) (mallei) (pseudomallei) as the cause of diseases classified elsewhere; B95.2 Enterococcus as the cause of diseases classified elsewhere; Z79.4 Long term (current) use of insulin
CPT/HCPCS: 36415; 71045; 74176; 80048; 80053; 81001; 82150; 82948; 83518; 83690; 85025; 87070; 87086; 87186; 87400; 96372; 99284; J0610; J0692; J2185; J2270; J2405; J2550; J7030; J7050

== ENCOUNTER 2018-06-20 16:12 | Inpatient (IN) | payer BC ==
[~2018-06-20] VITALS: Ht 180.3 cm; Wt 103.9 kg
[~2018-06-20 16:12] MED LIST changes: +NIFEDIPINE ER30 M1; +VYZULTA OP
--- OUTSIDE RECORDS SUMMARY | 2018-06-20 16:16 | XMS REPORT | Clinical Summary ---
Author Author [facility] Organization [facility] Address Unknown Phone Unavailable Care Team Providers Care Aircraft Engine Specialist Name Role Phone Donald Potts MD PCP [...] Units under insulin pen the skin nightly. Active Problems Problem Noted Date Instability of [...] Due Date Last Done Comments INFLUENZA VACCINE 09/23/2018 Implants Device Identifier Shelf Expiration Date Model / Serial / Lot Implanted Type Area Manufactur er 11/22/2025 [id number] / / [id number] Screw Bone Canc Dome 6.5x25mm Ltxf Hip Joint Right: Knee DEPUY [place] - [id number] Implants ORTHO Implanted: Qty: 1 on 03/27/2016 by Silke Chowdary MD 01/22/2026 [id number] / / [id number] Screw Bone Canc Dome 6.5x25mm Ltxf Hip Joint Right: Knee DEPUY [place] - [id number] Implants ORTHO Implanted: Qty: 1 on 03/27/2016 by Silke Chowdary MD 10/23/2026 [id number] / / [id number] [place] Stem [id number] Fluted - IPM Right: Knee DEPUY [id number] IMPLANT ORTHOPAEDI Implanted: Qty: 1 on 04/16/2017 by [employer] Silke Chowdary MD 12/23/2026 [id number] / / [id number] [place] Fem Slv Ful Por 40mm - IPM Right: Knee DEPUY [id number] IMPLANT ORTHOPAEDI Implanted: Qty: 1 on 04/16/2017 by [employer] Silke Chowdary MD 11/22/2025 [id number] / / [id number] Srom [facility] Dist Aug Xs/S/ 10mm - IPM Right: Knee DEPUY [id number] IMPLANT ORTHOPAEDI Implanted: Qty: 1 on 04/16/2017 by [employer] Silke Chowdary MD 11/22/2024 [id number] / / [id number] Srom [facility] Dist Aug Xs/S/ 10mm - IPM Right: Knee DEPUY [id number] IMPLANT ORTHOPAEDI Implanted: Qty: 1 on 04/16/2017 by [employer] Silke Chowdary MD 10/23/2021 [id number] / / [id number] Srom Nrfem W/Pin Med Rt 71x66 - IPM Right: Knee DEPUY [id number] IMPLANT ORTHOPAEDI Implanted: Qty: 1 on 04/16/2017 by [employer] Silke Chowdary MD 10/24/2019 [id number] / / [id number] Lps Univ Tib Hin Ins Med 31mm - IPM Right: Knee DEPUY [id number] IMPLANT ORTHOPAEDI Implanted: Qty: 1 on 04/16/2017 by [employer] Silke Chowdary MD 01/22/2026 [id number] / / [id number] Augment Fml P.F.C Sigma Distl Rt Sz Knee Joint Right: Knee DEPUY 5 4mm - [id number] Implants ORTHO Implanted: Qty: 1 on 03/27/2016 by Silke Chowdary MD 01/22/2026 [id number] / / [id number] Stem Tib Cementd [id number] P.F.C Knee Joint Right: Knee DEPUY Sigma - [id number] Implants ORTHO Implanted: Qty: 1 on 03/27/2016 by Silke Chowdary MD 10/22/2020 [id number] / / [id number] Augment Fml P.F.C Sigma Distl Rt Sz Knee Joint Right: Knee DEPUY 5 8mm - [id number] Implants ORTHO Implanted: Qty: 1 on 03/27/2016 by Silke Chowdary MD 09/22/2025 [id number] / / [id number] Stem Tib Cementd 63b30wv Knee Joint Right: Knee DEPUY P.F.C.Sigma - [id number] Implants ORTHO Implanted: Qty: 1 on 03/27/2016 by Silke Chowdary MD 12/23/2020 [id number] / / [id number] Pat[place] Prosths Oval / Dome 3-Post Knee Joint Right: Knee DEPUY 38mm Std Uhmwpe - [id number] Implants ORTHO Implanted: Qty: 1 on 03/27/2016 by Silke Chowdary MD 05/23/2020 [id number] / / [id number] Insert Tib Stblzd Rp Sz 5 25mm Knee Joint Right: Knee DEPUY P.F.C Sigma - [id number] Implants ORTHO Implanted: Qty: 1 on 03/27/2016 by Silke Chowdary MD 02/22/2026 [id number] / / [id number] Tray Rev Mbt 5x53.1x80.6x61.8mm - Knee Joint Right: Knee DEPUY [id number] Implants ORTHO Implanted: Qty: 1 on 03/27/2016 by Silke Chowdary MD 09/22/2025 [id number] / / [id number] Component Fml Rt N-Por Tc3 Sz 5 Knee Joint Right: Knee DEPUY 01w85bs P.F.C Sigma - [id number] Implants ORTHO Implanted: Qty: 1 on 03/27/2016 by Silke Chowdary MD 01/22/2026 [id number] / / [id number] Adapter Fml P.F.C Sigma 5deg - Knee Joint Right: Knee DEPUY [id number] Implants ORTHO-KNEE Implanted: Qty: 1 on 03/27/2016 by Silke Gutierres MD 11/22/2025 [id number] / / [id number] Adapter Fml P.F.C Sigma Ofst [place] Knee Joint Right: Knee DEPUY +2/-2mm - [id number] Implants ORTHO-KNEE Implanted: Qty: 1 on 03/27/2016 by Silke Gutierres MD 01/22/2017 [id number] / / [id number] Cement Bone Hiviscocty 40gr Surgical Right: Knee DEPUY Smartset - [id number] Bone ORTHO Implanted: Qty: 2 on 03/27/2016 by Silke Monge MD 12/23/2016 [id number] / / [id number] Cement Bone Hiviscocty 40gr Surgical Right: Knee DEPUY Smartset - [id number] Bone ORTHO Implanted: Qty: 1 on 03/27/2016 by Silke Monge MD 10/23/2018 [id number] / / [id number] Cement Bone Hiviscocty 40gr Surgical Right: Knee DEPUY Smartset - [id number] Bone ORTHO Implanted: 04/16/2017 (Quantity not Cement on file) 12/24/2020 [id number] / / [id number] Cement Bone Prep Univl Insrtr Sculp Surgical Right: Knee SANDOR Fml [place] Suct Sm - [id number] Implants; INSTRUMENT Implanted: Qty: 1 on 03/27/2016 by Expanders; Silke Gutierres MD Extenders; Surgical Wires [id number] / / Immobilizer Knee Tripnl Dlx W/ Patl Surgical N/A: N/A DEROYAL Strp Univl Canvas 24in - [id number] Implants; INDUST[place]ES Implanted: 04/16/2017 (Quantity not Expanders; on file) Extenders; Surgical Wires Results Not on fileafter 06/19/2017 Insurance Payer Benefit Subscriber ID Type Phone Address Plan / Group WORKERS COMP PARADIGM xxxxxxxxxxxxxxx Workers HEALTH xxxxx Comp ARNAV Guarantor Name Account Relation to Date of Phone Billing Address Type Patient [id number] Workers Employer 02/23/1900 [id number] (Home[address] [place] [address] Sukh Lozano Personal/F Self 1980 [id number] [address] (Home) [address] [place] [address] Sukh Lozano Third Self 1980 [id number] [address] [employer] (Home) [address] [place] [address] Advance Directives Patient has advance care planning documents on file. For more information, leydi handley contact: Alejandro Arias [address] [place] [address]
--- OUTSIDE RECORDS SUMMARY | 2018-06-20 16:16 | XMS REPORT | Continuity of Care Document ---
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 Active 06/17/2017 [facility] Acute renal failure Active 08/09/2015 Problem 05/07/2018 [facility] Dehydration Active 08/09/2015 Problem 05/07/2018 [facility] Diarrhea Active 08/09/2015 Problem 05/07/2018 [facility] GI bleed Active 08/09/2015 Problem 05/07/2018 [facility] Hyperglycemia Active 08/09/2015 Problem 05/07/2018 [facility] Renal insufficiency Active 04/15/2015 Problem 09/01/2017 [facility] Sepsis Active 04/15/2015 Problem 05/07/2018 [facility] Renal insufficiency Active 04/15/2015 Problem 05/07/2018 [facility] Bacteremia Active 03/30/2015 Problem 05/07/2018 [facility] Prostatitis Active 03/30/2015 Problem 05/07/2018 [facility] UTI Active 03/30/2015 Problem 05/07/2018 [facility] Pyelonephritis Active 02/10/2015 Problem 05/07/2018 [facility] Acute renal insufficiency Active Problem 05/07/2018 [facility] Bladder wall thickening Active Problem 05/07/2018 [facility] Fever Active Problem 05/07/2018 [facility] Hydroureteronephrosis Active Problem 05/07/2018 [facility] Hypomagnesemia Active Problem 05/07/2018 [facility] Indwelling catheter present on admission Active Problem 05/07/2018 [facility] Obstructive uropathy Active Problem 05/07/2018 [facility] Ureteral stent displacement Active Problem 09/01/2017 [facility] Ureteral stent displacement Active Problem 05/07/2018 [facility] Vomiting Active Problem 05/07/2018 [facility] Medications Medication Details Route Status Patient Instructions Ordering Provider Order Date Source Amlodipine Besylate 10 Mg Tablet, 10 Mg Oral Daily Active 05/05/2018 [facility] Metoprolol Tartrate 25 Mg Tablet, 25 Mg Oral Twice A Day Active 05/05/2018 [facility] Ciprofloxacin Hcl (Cipro) 500 Mg Tablet, 500 Mg Oral Daily Active 08/29/2017 [facility] Doxycycline Hyclate 100 Mg Capsule, 100 Mg Oral Twice A Day Active 08/29/2017 [facility] Fluconazole 100 Mg Tablet, 200 Mg Oral Daily Active 08/29/2017 [facility] Insulin Detemir (Levemir) 100 Unit/1 Ml Vial, 20 Units Sub-Q Bedtime Active 08/29/2017 [facility] Oxybutynin Chloride (Oxybutynin Chloride Er) 5 Mg Tab.er.24, 15 Mg Oral Daily Active 08/29/2017 [facility] Doxycycline Hyclate 100 Mg Capsule, 100 Mg Oral Twice A Day Active 08/29/2017 [facility] Fluconazole 100 Mg Tablet, 200 Mg Oral Daily Active 08/29/2017 [facility] Insulin Detemir (Levemir) 100 Unit/1 Ml Vial, 20 Units Sub-Q Bedtime Active 08/29/2017 [facility] Oxybutynin Chloride (Oxybutynin Chloride Er) 5 Mg Tab.er.24, 15 Mg Oral Daily Active 08/29/2017 [facility] Cephalexin 500 Mg Capsule, 500 Mg Oral Four Times Daily Active 06/04/2016 [facility] Hydrocodone Bit/Acetaminophen ([place] 5-325 Tablet) 1 Each Tablet, 1 Tab Oral Every 6 Hours as needed for Pain Active 06/04/2016 [facility] Promethazine Hcl 25 Mg Tablet, 25 Mg Oral Every 4 Hours Active 06/04/2016 [facility] Tramadol Hcl (Ultram) 50 Mg Tablet, 1-2 Tab Oral Every 6 Hours as needed for Pain Active 06/04/2016 [facility] Cephalexin 500 Mg Capsule, 500 Mg Oral Four Times Daily Active 06/04/2016 [facility] Hydrocodone Bit/Acetaminophen ([place] 5-325 Tablet) 1 Each Tablet, 1 Tab Oral Every 6 Hours as needed for Pain Active 06/04/2016 [facility] Promethazine Hcl 25 Mg Tablet, 25 Mg Oral Every 4 Hours Active 06/04/2016 [facility] Fluticasone Propionate 16 Gm [place].susp, 1 Twice A Day Active 08/08/2015 [facility] Meropenem (Merrem) 500 Mg Inj, 500 Mg Intraven Every 8 Hours Active 08/08/2015 [facility] Metoclopramide Hcl (Reglan) 10 Mg Tablet, 10 Mg Before Meals And At Bedtime Active 08/08/2015 [facility] Pantoprazole Sodium (Protonix) 40 Mg Tablet.dr, 40 Mg Oral Every Morning Active 08/08/2015 [facility] Fluticasone Propionate 16 Gm [place].susp, 1 Twice A Day Active 08/08/2015 [facility] Metoclopramide Hcl (Reglan) 10 Mg Tablet, 10 Mg Before Meals And At Bedtime Active 08/08/2015 [facility] Amoxicillin/Potassium Clav (Augmentin 500-125 Tablet) 1 Each Tablet, 500 Mg Oral Twice A Day Active 04/11/2015 [facility] Fluconazole (Diflucan) 100 Mg Tablet, Mg Oral Daily Active 04/11/2015 [facility] Amoxicillin/Potassium Clav (Augmentin 500-125 Tablet) 1 Each Tablet, 500 Mg Oral Twice A Day Active 04/11/2015 [facility] Fluconazole (Diflucan) 100 Mg Tablet, Mg Oral Daily Active 04/11/2015 [facility] Tamsulosin Hcl (Flomax*) 0.4 Mg Cap, 0.4 Mg Oral Bedtime Active 03/30/2015 [facility] Tamsulosin Hcl (Flomax*) 0.4 Mg Cap, 0.4 Mg Oral Bedtime Active 03/30/2015 [facility] Acetaminophen With Codeine (Tylenol With Codeine #3 Tablet) 1 Each Tablet, 300 Mg Oral Every 6 Hours as needed for Pain Active 03/08/2015 [facility] Senna Fruit/Conc/Doc Sod/Bisa (Senna-S Tablet) 1 Ea Tab, 1 Each Oral Bedtime Active 03/08/2015 [facility] Acetaminophen With Codeine (Tylenol With Codeine #3 Tablet) 1 Each Tablet, 300 Mg Oral Every 6 Hours as needed for Pain Active 03/08/2015 [facility] Senna Fruit/Conc/Doc Sod/Bisa (Senna-S Tablet) 1 Ea Tab, 1 Each Oral Bedtime Active 03/08/2015 [facility] Hydrocodone Bit/Acetaminophen ([place] 5-325 Tablet) 1 Each Tablet, Tab Oral Daily Active 02/22/2015 [facility] Insulin Npl/Insulin Lispro (Humalog Mix 50-50 Kwikpen) 100 Unit/1 Ml Insuln.pen, Sub-Q 15 Units Every A.m. Active 02/22/2015 [facility] Lisinopril 10 Mg Tablet, Tab Oral Daily Active 02/22/2015 [facility] Amoxicillin/Potassium Clav (Augmentin 875-125 Tablet) 1 Each Tablet, Tab Oral Twice A Day Active 02/11/2015 [facility] Cephalexin Monohydrate (Keflex) 500 Mg Capsule, 500 Mg Oral Three Times A Day Active 02/11/2015 [facility] Docusate Sodium (Colace) 100 Mg Cap, Cap Oral Daily Active 02/11/2015 [facility] Insulin Glargine,Hum.rec.anlog (Lantus) 100 Unit/1 Ml Cartridge, Sub-Q 45 Units At Bedtime Active 02/11/2015 [facility] Metformin Hcl 500 Mg Tablet, 500 Mg Oral Twice Daily Active 02/11/2015 [facility] Amlodipine Besylate 10 Mg Tablet Daily Active [facility] Gabapentin 300 Mg Capsule Three Times A Day Active [facility] Insulin Aspart (Novolog) 100 Unit/1 Ml Cartridge Before Meals Active [facility] Metoprolol Tartrate 25 Mg Tablet Twice A Day Active [facility] Gabapentin 300 Mg Capsule Twice A Day Active [facility] Insulin Aspart (Novolog) 100 Unit/1 Ml Cartridge Before Meals Active [facility] Nifedipine (Nifedipine Er) 30 Mg Tab.er.24 Daily Active [facility] Vyzulta Daily Active [facility] Allergies, Adverse Reactions, Alerts Substance Category Reaction Severity Reaction type Status Date Reported Comments Source PO CONTRAST Mild Allergy to Substance Active 07/06/2007 [facility] Iodinated Contrast- Oral and IV Dye Unknown Allergy to Substance Active 05/03/2018 [facility] No Known Medication Allergies Assertion Drug allergy [facility] Immunizations Immunization Date Given Site Status Last Updated Comments Source Results Order Name Results Value Reference Range Date Interpretation Comments Source Capillary blood glucose measurement by glucometer (mass/volume) 72 70 - 120 05/07/2018 [facility] Serum or plasma sodium measurement (moles/volume) 136 136 - 145 05/06/2018 [facility] Serum or plasma potassium measurement (moles/volume) 5.2 3.5 - 5.1 05/06/2018 [facility] Serum or plasma chloride measurement (moles/volume) 111 98 - 107 05/06/2018 [facility] Serum or plasma carbon dioxide, total measurement (moles/volume) 21 22 - 29 05/06/2018 [facility] Serum or plasma anion gap 9.2 8 - 16 05/06/2018 [facility] Serum or plasma urea nitrogen measurement (mass/volume) 26 7 - 26 05/06/2018 [facility] Serum or plasma creatinine measurement (mass/volume) 2.22 0.72 - 1.25 05/06/2018 [facility] Serum or plasma urea nitrogen/creatinine mass ratio 12 6 - 25 05/06/2018 [facility] Estimated glomerular filtration rate (GFR) determination 33 60 05/06/2018 [facility] Glucose measurement 144 74 - 118 05/06/2018 [facility] Serum or plasma calcium measurement (mass/volume) 6.5 8.4 - 10.2 05/06/2018 [facility] Blood leukocytes automated count (number/volume) 3.55 4.8 - 10.8 05/06/2018 [facility] Blood erythrocytes automated count (number/volume) 3.25 4.3 - 5.7 05/06/2018 [facility] Blood hemoglobin measurement (moles/volume) 8.6 14.0 - 18.0 05/06/2018 [facility] Automated blood hematocrit (volume fraction) 27.2 38.2 - 49.6 05/06/2018 [facility] Automated erythrocyte mean corpuscular volume 83.7 81 - 99 05/06/2018 [facility] Automated erythrocyte mean corpuscular hemoglobin (mass per erythrocyte) 26.5 28 - 32 05/06/2018 [facility] Automated erythrocyte mean corpuscular hemoglobin concentration measurement (mass/volume) 31.6 31 - 35 05/06/2018 [facility] RDW BldCo-Rto 14.6 11.7 - 14.4 05/06/2018 [facility] Automated blood platelet count (count/volume) 113 140 - 360 05/06/2018 [facility] Automated blood segmented neutrophil count as percentage of total leukocytes 59.6 38.7 - 80.0 05/06/2018 [facility] Automated blood lymphocyte count as percentage ot total leukocytes 24.8 18.0 - 39.1 05/06/2018 [facility] Automated blood monocyte count as percentage of total leukocytes 8.5 4.4 - 11.3 05/06/2018 [facility] Automated blood eosinophil count as percentage of total leukocytes 5.1 0.0 - 6.0 05/06/2018 [facility] Automated blood basophil count as percentage of total leukocytes 0.6 0.0 - 1.0 05/06/2018 [facility] IM GRANULOCYTES % 1.4 0.0 - 1.0 05/06/2018 [facility] Automated blood neutrophil count 2.1 2.1 - 6.9 05/06/2018 [facility] Blood lymphocytes count (number/volume) 0.9 1.0 - 3.2 05/06/2018 [facility] Blood monocytes automated count (number/volume) 0.3 0.2 - 0.8 05/06/2018 [facility] Automated blood eosinophil count 0.2 0.0 - 0.4 05/06/2018 [facility] Automated blood basophil count (count/volume) 0.0 0.0 - 0.1 05/06/2018 [facility] Absolute Immature Granulocyte (auto 0.05 0 - 0.1 05/06/2018 [facility] Serum or plasma total bilirubin measurement (mass/volume) 0.2 0.2 - 1.2 05/05/2018 [facility] Aspartate Amino Transf (AST/SGOT) 31 5 - 34 05/05/2018 [facility] Serum or plasma alanine aminotransferase measurement (enzymatic activity/volume) 44 0 - 55 05/05/2018 [facility] Serum or plasma protein measurement (mass/volume) 6.6 6.5 - 8.1 05/05/2018 [facility] Serum or plasma albumin measurement (mass/volume) 2.4 3.5 - 5.0 05/05/2018 [facility] Plasma globulin measurement (mass/volume) 4.2 2.3 - 3.5 05/05/2018 [facility] Serum or plasma albumin/globulin mass ratio 0.6 0.8 - 2.0 05/05/2018 [facility] Serum or plasma alkaline phosphatase measurement (enzymatic activity/volume) 272 40 - 150 05/05/2018 [facility] Urine color determination YELLOW YELLOW 05/03/2018 [facility] Urine clarity CLOUDY CLEAR 05/03/2018 [facility] Specific gravity of Urine by Test strip 1.025 1.010 - 1.025 05/03/2018 [facility] Urine pH measurement by automated test strip 6 5 - 7 05/03/2018 [facility] Urine leukocyte esterase detection by dipstick 2+ NEGATIVE 05/03/2018 [facility] Urine nitrite detection POSITIVE NEGATIVE 05/03/2018 [facility] Urine protein measurement by test strip (mass/volume) 3+ NEGATIVE 05/03/2018 [facility] Urine glucose detection 1+ NEGATIVE 05/03/2018 [facility] Urine ketones detection by automated test strip NEGATIVE NEGATIVE 05/03/2018 [facility] Urine urobilinogen measurement by test strip (mass/volume) 0.2 0.2 - 1 05/03/2018 [facility] Urine total bilirubin measurement (mass/volume) NEGATIVE NEGATIVE 05/03/2018 [facility] Urine erythrocytes detection 4+ NEGATIVE 05/03/2018 [facility] Automated urine sediment leukocyte count by microscopy (number/high power field) >50 0 - 5 05/03/2018 [facility] Erythrocytes detection in urine sediment by light microscopy 21-50 0 - 5 05/03/2018 [facility] Bacteria detection in urine sediment by light microscopy MANY NONE 05/03/2018 [facility] Epithelial cells detection in urine sediment by light microscopy RARE NONE 05/03/2018 [facility] Influenza virus A and B antigen identification by immunofluorescence NEGATIVE NEGATIVE 05/03/2018 [facility] Streptococcus pyogenes antigen detection in throat NEGATIVE NEGATIVE 05/03/2018 [facility] Serum or plasma amylase measurement (enzymatic activity/volume) 62 25 - 125 05/03/2018 [facility] Serum or plasma lipase measurement (enzymatic activity/volume) 14 8 - 78 05/03/2018 [facility] Capillary blood glucose measurement by glucometer (mass/volume) Capillary blood glucose measurement by glucometer (mass/volume) 190 70 - 120 09/01/2017 [facility] Estimated glomerular filtration rate (GFR) determination Estimated glomerular filtration rate (GFR) determination 43 60 08/31/2017 [facility] Glucose measurement Glucose measurement 165 74 - 118 08/31/2017 [facility] Serum or plasma anion gap Serum or plasma anion gap 11.7 8 - 16 08/31/2017 [facility] Serum or plasma calcium measurement (mass/volume) Serum or plasma calcium measurement (mass/volume) 8.2 8.4 - 10.2 08/31/2017 [facility] Serum or plasma carbon dioxide, total measurement (moles/volume) Serum or plasma carbon dioxide, total measurement (moles/volume) 20 22 - 29 08/31/2017 [facility] Serum or plasma chloride measurement (moles/volume) Serum or plasma chloride measurement (moles/volume) 109 98 - 107 08/31/2017 [facility] Serum or plasma creatinine measurement (mass/volume) Serum or plasma creatinine measurement (mass/volume) 1.79 0.72 - 1.25 08/31/2017 [facility] Serum or plasma potassium measurement (moles/volume) Serum or plasma potassium measurement (moles/volume) 4.7 3.5 - 5.1 08/31/2017 [facility] Serum or plasma sodium measurement (moles/volume) Serum or plasma sodium measurement (moles/volume) 136 136 - 145 08/31/2017 [facility] Serum or plasma urea nitrogen measurement (mass/volume) Serum or plasma urea nitrogen measurement (mass/volume) 20 7 - 26 08/31/2017 [facility] Serum or plasma urea nitrogen/creatinine mass ratio Serum or plasma urea nitrogen/creatinine mass ratio 11 6 - 25 08/31/2017 [facility] Automated blood basophil count (count/volume) Automated blood basophil count (count/volume) 0.0 0.0 - 0.1 08/30/2017 [facility] Automated blood basophil count as percentage of total leukocytes Automated blood basophil count as percentage of total leukocytes 0.2 0.0 - 1.0 08/30/2017 [facility] Automated blood eosinophil count Automated blood eosinophil count 0.1 0.0 - 0.4 08/30/2017 [facility] Automated blood eosinophil count as percentage of total leukocytes Automated blood eosinophil count as percentage of total leukocytes 2.1 0.0 - 6.0 08/30/2017 [facility] Automated blood hematocrit (volume fraction) Automated blood hematocrit (volume fraction) 29.6 38.2 - 49.6 08/30/2017 [facility] Automated blood lymphocyte count as percentage ot total leukocytes Automated blood lymphocyte count as percentage ot total leukocytes 13.9 18.0 - 39.1 08/30/2017 [facility] Automated blood monocyte count as percentage of total leukocytes Automated blood monocyte count as percentage of total leukocytes 9.8 4.4 - 11.3 08/30/2017 [facility] Automated blood neutrophil count Automated blood neutrophil count 3.9 2.1 - 6.9 08/30/2017 [facility] Automated blood platelet count (count/volume) Automated blood platelet count (count/volume) 115 140 - 360 08/30/2017 [facility] Automated blood segmented neutrophil count as percentage of total leukocytes Automated blood segmented neutrophil count as percentage of total leukocytes 73.6 38.7 - 80.0 08/30/2017 [facility] Automated erythrocyte mean corpuscular hemoglobin (mass per erythrocyte) Automated erythrocyte mean corpuscular hemoglobin (mass per erythrocyte) 26.0 28 - 32 08/30/2017 [facility] Automated erythrocyte mean corpuscular hemoglobin concentration measurement (mass/volume) Automated erythrocyte mean corpuscular hemoglobin concentration measurement (mass/volume) 31.8 31 - 35 08/30/2017 [facility] Automated erythrocyte mean corpuscular volume Automated erythrocyte mean corpuscular volume 82.0 81 - 99 08/30/2017 [facility] Blood erythrocytes automated count (number/volume) Blood erythrocytes automated count (number/volume) 3.61 4.3 - 5.7 08/30/2017 [facility] Blood hemoglobin measurement (moles/volume) Blood hemoglobin measurement (moles/volume) 9.4 14.0 - 18.0 08/30/2017 [facility] Blood leukocytes automated count (number/volume) Blood leukocytes automated count (number/volume) 5.33 4.8 - 10.8 08/30/2017 [facility] Blood lymphocytes count (number/volume) Blood lymphocytes count (number/volume) 0.7 1.0 - 3.2 08/30/2017 [facility] Blood monocytes automated count (number/volume) Blood monocytes automated count (number/volume) 0.5 0.2 - 0.8 08/30/2017 [facility] Plasma globulin measurement (mass/volume) Plasma globulin measurement (mass/volume) 4.6 2.3 - 3.5 08/30/2017 [facility] Serum or plasma alanine aminotransferase measurement (enzymatic activity/volume) Serum or plasma alanine aminotransferase measurement (enzymatic activity/volume) 40 0 - 55 08/30/2017 [facility] Serum or plasma albumin measurement (mass/volume) Serum or plasma albumin measurement (mass/volume) 2.8 3.5 - 5.0 08/30/2017 [facility] Serum or plasma albumin/globulin mass ratio Serum or plasma albumin/globulin mass ratio 0.6 0.8 - 2.0 08/30/2017 [facility] Serum or plasma alkaline phosphatase measurement (enzymatic activity/volume) Serum or plasma alkaline phosphatase measurement (enzymatic activity/volume) 234 40 - 150 08/30/2017 [facility] Serum or plasma protein measurement (mass/volume) Serum or plasma protein measurement (mass/volume) 7.4 6.5 - 8.1 08/30/2017 [facility] Serum or plasma total bilirubin measurement (mass/volume) Serum or plasma total bilirubin measurement (mass/volume) 0.5 0.2 - 1.2 08/30/2017 [facility] Red Cell Distribution Width 16.5 11.7 - 14.4 08/30/2017 [facility] IM GRANULOCYTES % 0.4 0.0 - 1.0 08/30/2017 [facility] Absolute Immature Granulocyte (auto 0.02 0 - 0.1 08/30/2017 [facility] Aspartate Amino Transf (AST/SGOT) 14 5 - 34 08/30/2017 [facility] Lactic Acid Level 6.9 4.5 - 19.8 08/29/2017 [facility] Blood culture NO GROWTH AFTER 5 DAYS, FINAL REPORT 08/29/2017 [facility] Automated urine sediment leukocyte count by microscopy (number/high power field) Automated urine sediment leukocyte count by microscopy (number/high power field) null 0 - 5 08/29/2017 [facility] Bacteria detection in urine sediment by light microscopy Bacteria detection in urine sediment by light microscopy FEW NONE 08/29/2017 [facility] Blood culture Blood culture NO GROWTH AFTER 72 HOURS 08/29/2017 [facility] Epithelial cells detection in urine sediment by light microscopy Epithelial cells detection in urine sediment by light microscopy RARE NONE 08/29/2017 [facility] Erythrocytes detection in urine sediment by light microscopy Erythrocytes detection in urine sediment by light microscopy null 0 - 5 08/29/2017 [facility] Specific gravity of Urine by Test strip Specific gravity of Urine by Test strip 1.020 1.010 - 1.025 08/29/2017 [facility] Urine clarity Urine clarity CLOUDY CLEAR 08/29/2017 [facility] Urine color determination Urine color determination RED YELLOW 08/29/2017 [facility] Urine erythrocytes detection Urine erythrocytes detection 3+ NEGATIVE 08/29/2017 [facility] Urine glucose detection Urine glucose detection NEGATIVE NEGATIVE 08/29/2017 [facility] Urine ketones detection by automated test strip Urine ketones detection by automated test strip NEGATIVE NEGATIVE 08/29/2017 [facility] Urine leukocyte esterase detection by dipstick Urine leukocyte esterase detection by dipstick 2+ NEGATIVE 08/29/2017 [facility] Urine nitrite detection Urine nitrite detection NEGATIVE NEGATIVE 08/29/2017 [facility] Urine pH measurement by automated test strip Urine pH measurement by automated test strip 6 5 - 7 08/29/2017 [facility] Urine protein measurement by test strip (mass/volume) Urine protein measurement by test strip (mass/volume) 3+ NEGATIVE 08/29/2017 [facility] Urine total bilirubin measurement (mass/volume) Urine total bilirubin measurement (mass/volume) 1+ NEGATIVE 08/29/2017 [facility] Urine urobilinogen measurement by test strip (mass/volume) Urine urobilinogen measurement by test strip (mass/volume) 0.2 0.2 - 1 08/29/2017 [facility] Lactic Acid Level 6.9 4.5 - 19.8 08/29/2017 [facility] Shoulder w contrast MRI Shoulder w contrast [...] Matthew Reeder MD 07/23/17 14:41 FINAL REPORT [facility] Inj Arthrogram Shoulder Unilat DX Inj [...] Wilder Wilson MD 07/23/17 13:33 FINAL REPORT [facility] Serum or plasma magnesium measurement (mass/volume) Serum or plasma magnesium measurement (mass/volume) 1.3 1.3 - 2.1 01/25/2017 [facility] Bacterial urine culture Urine Culture [facility] Vital Signs Vital Sign Value Date Comments Source BMI Calculated 22.31 12/01/2017 [facility] Weight 64.602 12/01/2017 [facility] Height 170.18 cm 12/01/2017 [facility] Systolic (mm Hg) 108 12/01/2017 [facility] Diastolic (mm Hg) 76 12/01/2017 [facility] Heart Rate 64 12/01/2017 [facility] Encounters Location Location Details Encounter Type Encounter Number Reason For Visit Attending Provider ADM Date DC Date Status Source Discharged Inpatient [id number] ABHIJIT LLOYD MD 01/25/2017 01/30/2017 [facility] [id number] Kenzie Mancilla 06/02/2017 06/02/2017 [facility] Outpatient Imaging [facility] [id number] Joaquín Ha 07/23/2017 07/24/2017 [facility] Discharged Inpatient [id number] ABHIJIT LLOYD MD 08/29/2017 09/01/2017 [facility] Phone Message [id number] 11/30/2017 12/02/2017 [facility] Outpatient [id number] [facility] 12/01/2017 [facility] Outpatient [id number] [facility] 12/01/2017 12/02/2017 [facility] Admitted Inpatient [id number] ABHIJIT LLOYD MD 05/04/2018 [facility] Procedures Procedure Code Date Perfomer Comments Source X-ray of chest, single view [id number] 05/03/2018 [facility] CT of abdomen and pelvis without contrast [id number] 05/03/2018 [facility] CT of abdomen and pelvis without contrast [id number] 01/24/2017 [facility] Hernia repair<sup>1</sup> [id number] 1980 & 1988 [facility] LASIK [id number] [facility] Provision of collar<sup>2</sup> [id number] collar bone fracture [facility]
--- OUTSIDE RECORDS SUMMARY | 2018-06-20 16:16 | XMS REPORT | Summary of Care ---
Author Author [facility] Organization [facility] Address Unknown Phone Unavailable Encounter HQ Kenjintr_alierik(FIN) [id number] Date(s): 11/30/17 - 12/01/17 [facility] [address] [place] [address]- Vital Signs No data available for this section Problem List No data available for this section Allergies, Adverse Reactions, Alerts No Known Medication Allergies Medications No data available for this section Results No data available for this section Immunizations No data available for this section Procedures Procedure Date Related Diagnosis Body Site Status Hernia repair1 Completed LASIK Completed Provision of collar2 Completed 80340 & 1988 2collar bone fracture Social History Social History Type Response Substance Abuse Use: None. Recreational Drug Route: Oral. Employment/School Status: Employed. Alcohol Current, Type Beer. Frequency: 3-5 times per week. Smoking Status Never smoker; Exposure to Tobacco Smoke None; Cigarette Smoking Last 365 Days No; Reg Smoking Cessation Counseling Yes entered on: 12/01/17 Assessment and Plan No data available for this section
--- OUTSIDE RECORDS SUMMARY | 2018-06-20 16:16 | XMS REPORT | Summary of Care ---
Author Author [facility] Organization [facility] Address Unknown Phone Unavailable Encounter HQ Fany(FIN) [id number] Date(s): 12/01/17 - 12/01/17 [facility] [address] [place] [address]- Discharge Disposition: Home or Self Care Attending Physician: Frankie Cook MD Referring Physician: Frankie Cook MD Vital Signs Most recent to 1 oldest [Reference Range]: Height 170.18 cm (12/01/17 9:24 AM) Blood Pressure 108/76 mmHg [90-140/60-90 mmHg] (12/01/17 9:24 AM) Peripheral Pulse 64 bpm Rate [60-100 bpm] (12/01/17 9:24 AM) Weight 64.602 kg (12/01/17 9:24 AM) Body Mass Index 22.31 m2 (12/01/17 9:24 AM) Problem List No data available for this section Allergies, Adverse Reactions, Alerts No Known Medication Allergies Medications No Known Medications Results No data available for this section Immunizations No data available for this section Procedures Procedure Date Related Diagnosis Body Site Status Hernia repair1 Completed LASIK Completed Provision of collar2 Completed & 1988 2collar bone fracture Social History [...]
[2018-06-20] MEDS ORDERED: SODIUM CHLORIDE 0.9% 1000ML 1,000 ML IV STA (16:33)
[2018-06-20] MEDS ORDERED: SODIUM CHLORIDE 0.9% 1000ML 1,000 ML IV SCH (16:34)
[2018-06-20] MEDS ORDERED: ONDANSETRON HCL INJ 2MG/ML 2ML 2 MG/ML VIAL IV PRN (16:45)
[2018-06-20] MEDS ORDERED: LACTULOSE SYRUP 20 GM/30 ML UDC PO PRN (16:45)
[2018-06-20] MEDS ORDERED: CEFTRIAXONE SOD 1 GM VIAL IV ONE (16:45)
[2018-06-20] MEDS ORDERED: MORPHINE SULFATE 2 MG/ML SYR 1ML IV PRN (16:45)
[2018-06-20] MEDS ORDERED: CEFTRIAXONE SOD 1 GM/NS 50 ML 50 ML IV ONE (17:00)
[2018-06-20] MEDS ORDERED: ONDANSETRON HCL INJ 2MG/ML 2ML 2 MG/ML VIAL IV ONE (17:00)
[2018-06-20] MEDS ORDERED: KETOROLAC TROMETHAMINE 30 MG/ML VIAL IV ONE (17:00)
[2018-06-20 17:23] LABS: BASOPHILS % 0.4 % (0.0-1.0); EOSINOPHILS # (AUTO) 0.1 (0.0-0.4); EOSINOPHILS % 2.2 % (0.0-6.0); HEMOGLOBIN 9.6 g/dL (14.0-18.0); LYMPHOCYTES # (AUTO) 0.9 (1.0-3.2); LYMPHOCYTES % 20.6 % (18.0-39.1); MEAN CORPUSCULAR HEMOGLOBIN 26.6 pg (28-32); MEAN CORPUSCULAR HGB CONC 33.1 g/dL (31-35); MEAN CORPUSCULAR VOLUME 80.3 fL (81-99); MONOCYTES # (AUTO) 0.5 (0.2-0.8); MONOCYTES % 10.4 % (4.4-11.3); PLATELET COUNT 153 x10e3/uL (140-360); RED BLOOD COUNT 3.61 x10e6/uL (4.3-5.7); RED CELL DISTRIBUTION WIDTH 13.5 % (11.7-14.4)
[2018-06-20 17:29] LABS: CLARITY,URINE CLOUDY (CLEAR); COLOR,URINE YELLOW (YELLOW); LEUKOCYTE ESTERASE ,URINE 1+ (NEGATIVE); NITRITE,URINE NEGATIVE (NEGATIVE)
[2018-06-20 17:30] LABS: BILIRUBIN,URINE NEGATIVE (NEGATIVE); KETONES,URINE NEGATIVE (NEGATIVE); PROTEIN,URINE DIPSTICK 3+ (NEGATIVE); URINE UROBILINOGEN 0.2 mg/dL (0.2 - 1)
[2018-06-20 17:35] LABS: ALBUMIN 2.6 g/dL (3.5-5.0); ALBUMIN/GLOBULIN RATIO 0.5 (0.8-2.0); CALCIUM 7.1 mg/dL (8.4-10.2); CREATININE, SERUM 3.26 mg/dL (0.72-1.25)
[2018-06-20 17:45] LABS: BACTERIA,URINE MANY /HPF; EPITHELIAL CELLS,URINE FEW /LPF; RBC,URINE >50 /HPF (0-5); WBC,URINE (MAN) >50 /HPF (0-5)
[2018-06-20] MEDS ORDERED: METRONIDAZOLE 500MG/NS 100ML IV SCH (18:00)
--- OUTSIDE RECORDS SUMMARY | 2018-06-20 18:31 | XMS REPORT | Clinical Summary ---
Author Author [facility] Organization [facility] Address Unknown Phone Unavailable Care Team Providers Care Senior Web Designer Name Role Phone Donald Potts MD PCP [...] Lot Implanted Type Area Manufactur er 11/22/2025 [id number] / / [id number] Screw Bone Canc Dome 6.5x25mm Ltxf Hip Joint Right: Knee DEPUY [place] - [id number] Implants ORTHO Implanted: Qty: 1 on 03/27/2016 by Silke Chowdary MD 01/22/2026 [id number] / / [id number] Screw Bone Canc Dome 6.5x25mm Ltxf Hip Joint Right: Knee DEPUY [place] - [id number] Implants ORTHO Implanted: Qty: 1 on 03/27/2016 by Silke Chowdary MD 10/23/2026 [id number] / / [id number] [place] Stem [id number] Fluted - IPM Right: Knee DEPUY [id number] IMPLANT ORTHOPAEDI Implanted: Qty: 1 on 04/16/2017 by [employer] Silke Chowdary MD 12/23/2026 [id number] / / [id number] [place] Fem Slv Ful Por 40mm - IPM Right: Knee DEPUY [id number] IMPLANT ORTHOPAEDI Implanted: Qty: 1 on 04/16/2017 by [employer] Silke Chowdary MD 11/22/2025 [id number] / / [id number] Srom [employer] [facility] Dist Aug Xs/S/ 10mm - IPM Right: Knee DEPUY [id number] IMPLANT ORTHOPAEDI Implanted: Qty: 1 on 04/16/2017 by [employer] Silke Chowdary MD 11/22/2024 [id number] / / [id number] Srom [employer] [facility] Dist Aug Xs/S/ 10mm - IPM Right: Knee DEPUY [id number] IMPLANT ORTHOPAEDI Implanted: Qty: 1 on 04/16/2017 by [employer] Silke Chowdary MD 10/23/2021 [id number] / / [id number] Srom Nrfem W/Pin Med Rt 71x66 - IPM Right: Knee DEPUY [id number] IMPLANT ORTHOPAEDI Implanted: Qty: 1 on 04/16/2017 by [employer] Silke Chowdary MD 10/24/2019 [id number] / / [id number] Lps Univ Tib Hin Ins Med 31mm - IPM Right: Knee DEPUY [id number] IMPLANT ORTHOPAEDI Implanted: Qty: 1 on 04/16/2017 by [employer] Silke Chowdary MD 01/22/2026 [id number] / / [id number] Augment Fml P.F.C Sigma Distl Rt Sz Knee Joint Right: Knee DEPUY 5 4mm - [id number] Implants ORTHO Implanted: Qty: 1 on 03/27/2016 by Silke Chowdary MD 01/22/2026 [id number] / / [id number] Stem Tib Cementd 28o83eq P.F.C Knee Joint Right: Knee DEPUY Sigma - [id number] Implants ORTHO Implanted: Qty: 1 on 03/27/2016 by Silke Chowdary MD 10/22/2020 [id number] / / [id number] Augment Fml P.F.C Sigma Distl Rt Sz Knee Joint Right: Knee DEPUY 5 8mm - [id number] Implants ORTHO Implanted: Qty: 1 on 03/27/2016 by Silke Chowdary MD 09/22/2025 [id number] / / [id number] Stem Tib Cementd 22o73mb Knee Joint Right: Knee DEPUY P.F.C.Sigma - [id number] Implants ORTHO Implanted: Qty: 1 on 03/27/2016 by Silke Chowdary MD 12/23/2020 [id number] / / [id number] Patella Prosths Oval / Dome 3-Post Knee Joint Right: Knee DEPUY 38mm Std Uhmwpe - [id number] Implants ORTHO Implanted: Qty: 1 on 03/27/2016 by Silke Chowdary MD 05/23/2020 [id number] / / [id number] Insert Tib Stblzd Rp Sz 5 25mm Knee Joint Right: Knee DEPUY P.F.C Sigma - [id number] Implants ORTHO Implanted: Qty: 1 on 03/27/2016 by Silke Chowdary MD 02/22/2026 [id number] / / [id number] Tray Rev Mbt 5x53.1x80.6x61.8mm - Knee Joint Right: Knee DEPUY [id number] Implants ORTHO Implanted: Qty: 1 on 03/27/2016 by Silke Chowdary MD 09/22/2025 [id number] / / [id number] Component Fml Rt N-Por Tc3 Sz 5 Knee Joint Right: Knee DEPUY [id number] P.F.C Sigma - [id number] Implants ORTHO Implanted: Qty: 1 on 03/27/2016 by Silke Chowdary MD 01/22/2026 [id number] / / [id number] Adapter Fml P.F.C Sigma 5deg - Knee Joint Right: Knee DEPUY [id number] Implants ORTHO-KNEE Implanted: Qty: 1 on 03/27/2016 by Silke Gutierres MD 11/22/2025 [id number] / / [id number] Adapter Fml P.F.C Sigma [place] Knee Joint Right: Knee DEPUY +2/-2mm - [id number] Implants ORTHO-KNEE Implanted: Qty: 1 on 03/27/2016 by Silke Gutierres MD 01/22/2017 [id number] / / [id number] Cement Bone Hiviscocty 40gr Surgical Right: Knee DEPUY Smartset - [id number] Bone ORTHO Implanted: Qty: 2 on 03/27/2016 by Silke Monge MD 12/23/2016 [id number] / / [id number] Cement Bone Hiviscocty 40gr Surgical Right: Knee DEPUY Smartset - [id number] Bone ORTHO Implanted: Qty: 1 on 03/27/2016 by Silke Monge MD 10/23/2018 [id number] / / [id number] Cement Bone Hiviscocty 40gr Surgical Right: Knee DEPUY Smartset - [id number] Bone ORTHO Implanted: 04/16/2017 (Quantity not Cement on file) 12/24/2020 [id number] / / [id number] Cement Bone Prep Univl Insrtr Sculp Surgical Right: Knee SANDOR Fml [place] Suct Sm - [id number] Implants; INSTRUMENT Implanted: Qty: 1 on 03/27/2016 by Expand[employer]; Silke Gutierres MD Extenders; Surgical Wires [id number] / / Immobilizer Knee Tripnl Dlx W/ Patl Surgical N/A: N/A DEROYAL Strp Univl Canvas 24in - [id number] Implants; INDUSTRIES Implanted: 04/16/2017 (Quantity not Expanders; on file) Extenders; Surgical Wires Results Not on fileafter 06/19/2017 Insurance Payer Benefit Subscriber ID Type Phone Address Plan / Group WORKERS COMP PARADIGM xxxxxxxxxxxxxxx Workers HEALTH xxxxx Comp ARNAV Guarantor Name Account Relation to Date of Phone Billing Address Type Patient [id number] Workers Employer 02/23/1900 [id number] [address] (Home) [address] [place] [address] Sukh Lozano Personal/F Self [id number] [address] amily (Home) [address] [place] [address] Sukh Lozano Third Self 1980 [id number] [address] Republican (Home) [address] [place] [address] Advance Directives Patient has advance care planning documents on file. For more information, leydi handley contact: Alejandro Arias [address] [place] [address]
[2018-06-20] MEDS: SODIUM CHLORIDE 0.9% 1000ML 1,000 ML IV SCH (19:01)
[2018-06-20] MEDS: MORPHINE SULFATE INJ 4 MG/ML INJ 1ML IV PRN ×2 (19:21→23:56)
[2018-06-20 20:30] VITALS: BP 156/88
--- NOTE | 2018-06-20 20:30 | NUR ---
PATIENT RECEIVED FROM ER. PATIENT IS AAOX3. RESP EVEN AND UNLABORED. NO ACUTE DISTRESS NOTED. SUPRA PUBIC CATHETER NOTED, CLEAR AND YELLOW URINE NOTED. PATIENT DENIES OF ANY PAIN AT THIS TIME. IV FLUID INFUSING. CALL LIGHT WITHIN REACH. INSTRUCT TO CALL FOR ASSISTANCE. BED LOW/LOCKED. CONTINUE TO MONITOR CLOSELY
[2018-06-20 21:33] VITALS: BP 156/88
[2018-06-20] MEDS: MEROPENEM 1GM 100 ML IV SCH (21:44)
[2018-06-20] MEDS: ONDANSETRON HCL INJ 2MG/ML 2ML 2 MG/ML VIAL IV PRN (23:56)
[2018-06-21] VITALS (8 sets, daily range): BP systolic 102–187; BP diastolic 63–102
[2018-06-21] MEDS: SODIUM CHLORIDE 0.9% 1000ML 1,000 ML IV SCH ×3 (05:05→21:17)
[2018-06-21] MEDS: MEROPENEM 1GM 100 ML IV SCH (05:05)
[2018-06-21] MEDS: ONDANSETRON HCL INJ 2MG/ML 2ML 2 MG/ML VIAL IV PRN ×4 (05:17→22:55)
[2018-06-21] MEDS: MORPHINE SULFATE INJ 4 MG/ML INJ 1ML IV PRN ×6 (05:17→23:31)
[2018-06-21 05:38] LABS: BASOPHILS % 0.3 % (0.0-1.0); EOSINOPHILS # (AUTO) 0.1 (0.0-0.4); EOSINOPHILS % 4.1 % (0.0-6.0); HEMATOCRIT 26.2 % (38.2-49.6); HEMOGLOBIN 8.6 g/dL (14.0-18.0); LYMPHOCYTES % 35.4 % (18.0-39.1); MEAN CORPUSCULAR HEMOGLOBIN 26.8 pg (28-32); MEAN CORPUSCULAR HGB CONC 32.8 g/dL (31-35); MEAN CORPUSCULAR VOLUME 81.6 fL (81-99); MONOCYTES # (AUTO) 0.4 (0.2-0.8); MONOCYTES % 11.9 % (4.4-11.3); NEUTROPHILS # (AUTO) 1.4 (2.1-6.9); PLATELET COUNT 118 x10e3/uL (140-360); RED BLOOD COUNT 3.21 x10e6/uL (4.3-5.7); RED CELL DISTRIBUTION WIDTH 13.6 % (11.7-14.4)
[2018-06-21 05:52] LABS: ANION GAP 11.8 mmol/L (8-16); CREATININE, SERUM 2.97 mg/dL (0.72-1.25); POTASSIUM 4.8 mmol/L (3.5-5.1)
[2018-06-21 06:00] LABS: CALCIUM 6.4 mg/dL (8.4-10.2)
--- NOTE | 2018-06-21 06:00 | NUR ---
CALLED AND LEFT MESSAGE FOR DR LLOYD REGARDING HIGH BP AND CRITICAL LAB JOELLE 6.4, WAITING FOR MD TO CALL BACK
[2018-06-21] MEDS ORDERED: DEXTROSE 50% SYRINGE 50 ML IV PRN (06:30)
--- NOTE | 2018-06-21 06:30 | NUR ---
SPOKE TO DR LLOYD ABOUT HIGH BP. NEW ORDER TO RESUME HOME MED. SAID HE WOULD LOOK AT CALCIUM LEVEL WHEN HE ROUND
[2018-06-21] MEDS ORDERED: NIFEDIPINE CR 30 MG TAB PO ONE (08:30)
[2018-06-21] MEDS ORDERED: CALCIUM GLUCONATE 10% INJ 9.3 MEQ in SODIUM CHLORIDE 0.9% 100 ML 100 ML IV ONE (08:45)
[2018-06-21] MEDS ORDERED: NIFEDIPINE CR 30 MG TAB PO SCH (09:00)
[2018-06-21] MEDS: GABAPENTIN 300 MG CAP PO SCH ×3 (09:30→21:11)
[2018-06-21] MEDS: INSULIN LISPRO 100 UNIT/1 ML 3ML VIAL SQ SCH ×6 (09:30→21:00)
[2018-06-21 11:02] LABS: THYROID STIMULATING HORMONE 2.156 uIU/mL (0.350-4.940)
[2018-06-21] MEDS: CHOLECALCIFEROL 1,000 UNIT TAB PO SCH (11:05)
[2018-06-21 11:07] LABS: FOLATE 7.2 ng/mL (7.0-15.4)
[2018-06-21] MEDS: CIPROFLOXACIN 200 MG/D5W 100ML 100 ML IV SCH ×2 (12:30→22:38)
[2018-06-21] MEDS: ONDANSETRON HCL 4 MG ORAL DISINTEGRATING TAB PO PRN (14:50)
--- NOTE | 2018-06-21 15:49 | History and Physical ---
The patient is admitted through the emergency room. PRIMARY CARE PHYSICIAN: Donald Potts M.D. CONSULTANTS: 1. Castro Jalloh M.D. 2. Ciro Blum M.D. CHIEF COMPLAINT: Complicated urinary tract infection with Barcenas catheter in place, fever. HISTORY: A 37-year-old male with a long history of neurogenic urinary bladder. The patient has a Barcenas catheter in place. The patient came in with increasing urinary tract infection, cloudy urine. The patient has suprapubic Barcenas catheter tube. His WBC is diminished. The patient is stable, however. Baseline diabetes with insulin therapy. His calcium level is also low as well. The patient has low-grade fever. The patient is admitted for IV antibiotics. PAST MEDICAL HISTORY: Neurogenic urinary bladder with suprapubic catheter. The patient has chronic kidney disease, chronic anemia, diabetes type 2 with insulin therapy. The patient has previous long history of knee injury, foot injury, trauma, post multiple surgeries to the left lower extremity. SOCIAL HISTORY: The patient does not smoke or use alcohol. No recreational drugs. ALLERGIES: IODINE CONTRAST AND ORAL AND IV CONTRAST. HOME MEDICATIONS: List is reviewed. REVIEW OF SYSTEMS: Fever, urinary bladder, suprapubic pain. PHYSICAL EXAMINATION: VITAL SIGNS: Temperature is 99, blood pressure 163/100, pulse rate is 94, respirations 20. GENERAL: The patient is not in acute distress. He is awake. HEENT: Normocephalic, atraumatic. Anicteric. NECK: Supple grossly. PULMONARY: Diminished breath sounds without any wheezing or rales. CARDIOVASCULAR: Regular rate and rhythm. Tachycardia. ABDOMEN: Soft. Suprapubic catheter generalized discomfort on deep palpation. EXTREMITIES: No cyanosis or edema. NEUROLOGIC: Diabetic neuropathy without any other focal deficit. LABORATORY DATA: WBC 2.9, hemoglobin 8.6, hematocrit 26.2, platelets are 118. Chemistry; sodium is 139, potassium 5, chloride 109, bicarb 19, BUN 36, creatinine 3.2, glucose is 123, calcium is 7.4. Alkaline phosphatase is 181, total protein is 8.2, albumin is 2.6, globulin is 5.6. IMPRESSION: 1. Complicated urinary tract infection associated with suprapubic Barcenas catheter. 2. Low-grade fever, improving. 3. Electrolyte disorder. 4. Baseline diabetes with diabetic complications and diabetic neuropathy. PLAN: Continue with meropenem. Consultation with Dr. Castro Jalloh and Dr. Blum. Home medication adjustment. Blood pressure adjustment. The patient is stable. We will continue to monitor the patient. Repeat lab work. Correct calcium level. MD SADA Haywood/NOREEN /[id number]
--- NOTE | 2018-06-21 18:15 | Consultation ---
DATE OF CONSULTATION: 06/21/2018 REASON FOR ADMISSION: UTI. Thank you so much for asking me to see this patient. HISTORY OF PRESENT ILLNESS: Mr. Casiano is a 37-year-old [place]an male with history of diabetes mellitus and history of chronic kidney disease. The patient comes in with fever and chills. He comes in with urgency and frequency. He is also having back pain. The patient comes into the hospital. He was admitted. The patient was started on meropenem. His blood cultures negative. Urine cultures are negative. However, his fever did improve and symptoms did improve. Infectious Disease was asked to see the patient. PHYSICAL EXAMINATION: GENERAL: He is currently alert, oriented, does not seem to be in acute distress. VITAL SIGNS: Stable, currently afebrile. HEENT: Not icteric. NECK: Supple. CHEST: Clear. HEART: S1, S2. No S3, S4, or murmur. ABDOMEN: Soft. Bowel sounds present. No tenderness. EXTREMITIES: No edema. SKIN: No rash. PAST MEDICAL HISTORY: Diabetes mellitus and chronic kidney disease. PAST SURGICAL HISTORY: Denies any. FAMILY HISTORY: Hypertension and diabetes. REVIEW OF SYSTEMS: At the present time, HEENT: Negative. PULMONARY: Negative. CARDIAC: Negative. : Negative. GI: Negative. IMPRESSION AND PLAN: 1. Fever and chills, pain, urgency, and frequency, so far all is cultures are negative. Concern it is UTI by symptoms however, the cultures are negative as mentioned above. We will try Cipro. Recheck CBC. Recheck Chem panel. Discontinue meropenem. Observe the patient clinically if has no fever and when clinically better, can discharge home with Cipro 500 mg 50 mg p.o. b.i.d. 2. Diabetes mellitus. 3. Chronic kidney disease. 4. We will follow. Laboratory data reviewed. MD PIPPA Steel/MODAlexandre /[id number]
[2018-06-22] VITALS (9 sets, daily range): BP systolic 101–160; BP diastolic 59–100
[2018-06-22] MEDS: MORPHINE SULFATE INJ 4 MG/ML INJ 1ML IV PRN ×6 (03:13→22:15)
[2018-06-22] MEDS: ONDANSETRON HCL INJ 2MG/ML 2ML 2 MG/ML VIAL IV PRN ×5 (03:13→22:15)
[2018-06-22] MEDS: NIFEDIPINE CR 30 MG TAB PO SCH ×3 (05:28→08:26)
[2018-06-22 05:50] LABS: BASOPHILS % 0.6 % (0.0-1.0); EOSINOPHILS # (AUTO) 0.1 (0.0-0.4); EOSINOPHILS % 4.5 % (0.0-6.0); HEMATOCRIT 24.9 % (38.2-49.6); LYMPHOCYTES # (AUTO) 0.9 (1.0-3.2); LYMPHOCYTES % 27.4 % (18.0-39.1); MEAN CORPUSCULAR HEMOGLOBIN 26.7 pg (28-32); MEAN CORPUSCULAR HGB CONC 32.1 g/dL (31-35); MONOCYTES # (AUTO) 0.4 (0.2-0.8); MONOCYTES % 11.6 % (4.4-11.3); NEUTROPHILS # (AUTO) 1.7 (2.1-6.9); NEUTROPHILS % 54.9 % (38.7-80.0); PLATELET COUNT 121 x10e3/uL (140-360); RED CELL DISTRIBUTION WIDTH 13.7 % (11.7-14.4)
[2018-06-22 06:16] LABS: ALBUMIN 2.1 g/dL (3.5-5.0); ALBUMIN/GLOBULIN RATIO 0.4 (0.8-2.0); ANION GAP 11.9 mmol/L (8-16); CREATININE, SERUM 3.18 mg/dL (0.72-1.25); MAGNESIUM 1.2 MG/DL (1.3-2.1); PHOSPHORUS 5.4 MG/DL (2.3-4.7)
[2018-06-22 06:24] LABS: CALCIUM 6.5 mg/dL (8.4-10.2)
[2018-06-22 06:25] LABS: POTASSIUM 5.9 mmol/L (3.5-5.1)
--- NOTE | 2018-06-22 06:34 | NUR ---
Spoke with Dr. Potts concerning patient's critical calcium level this morning as well as elevated potassium. New orders received for elevated potassium and Dr. Potts states he will take care of the critical calcium level when he comes in this morning.
[2018-06-22] MEDS ORDERED: SOD POLYSTYRENE SULFONATE SUSP 15 GM/60 ML BTL PO NR (07:15)
--- NOTE | 2018-06-22 07:22 | NUR ---
Rcvd patient in report this am, Patient is asleep in bed at this time. No s/s of distress noted
[2018-06-22] MEDS: INSULIN LISPRO 100 UNIT/1 ML 3ML VIAL SQ SCH ×7 (07:30→20:38)
[2018-06-22] MEDS: GABAPENTIN 300 MG CAP PO SCH ×3 (08:26→20:38)
[2018-06-22] MEDS: CHOLECALCIFEROL 1,000 UNIT TAB PO SCH (08:26)
[2018-06-22] MEDS: ONDANSETRON HCL 4 MG ORAL DISINTEGRATING TAB PO PRN ×2 (08:59→13:13)
--- NOTE | 2018-06-22 09:00 | NUR ---
Kayexalate given and patient did not tolerate well. Patient had 2 large amounts of emesis noted. PRN zofran given
[2018-06-22] MEDS ORDERED: MAGNESIUM SULFATE 2GM/50ML IV ONE (09:45)
[2018-06-22] MEDS: CIPROFLOXACIN 200 MG/D5W 100ML 100 ML IV SCH ×2 (10:35→22:36)
[2018-06-22] MEDS ORDERED: CALCIUM GLUCONATE 10% INJ 9.3 MEQ in SODIUM CHLORIDE 0.9% 100 ML 100 ML IV ONE (10:45)
[2018-06-22] MEDS ORDERED: MAGNESIUM SULFATE 2GM/50ML 50 ML IV ONE (10:45)
--- NOTE | 2018-06-22 10:56 | NUR ---
SOCIAL WORK INITIAL ASSESSMENT Vice President Biostatistics to bedside to discuss plan of care with patient/family. CM/SW role and care transitions discussed. Anticipated discharge plan discussed along with duration of care. CM/SW discussed patients right to make decisions in care. CM/SW work hours given. 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 Name and number was also written on the patients whiteboard. Patient verbalized understanding of discussion. CM will follow-up with ongoing discharge and transition of care needs.
--- NOTE | 2018-06-22 11:00 | NUR ---
Patient is AAOx3. Lung velarde clear to auscultation. Bowel sounds present x4. Suprapubic cath in place. SIte clean and dry. Right hand IV in place. IV fluids infusing. Patient c/o pain in back. PRN pain meds given.
[2018-06-22] MEDS: SODIUM CHLORIDE 0.9% 1000ML 1,000 ML IV SCH ×2 (13:45→18:14)
[2018-06-22 18:17] LABS: CREATININE,URINE RANDOM 76.55 mg/dL (63-166)
[2018-06-22 18:31] LABS: TOTAL PROTEIN, URINE 227.6 mg/dL (1-14)
--- NOTE | 2018-06-22 18:53 | NUR ---
Spoke with Dr. kraus regarding stat potassium. Repeat labs in the am. No new orders
--- NOTE | 2018-06-22 23:36 | Consultation ---
DATE OF CONSULTATION: 06/22/2018 Renal Consultation REASON FOR CONSULTATION: Acute kidney injury and hyperkalemia. HISTORY OF PRESENT ILLNESS: A 37-year-old male with a history of stage 3 chronic kidney disease, neurogenic bladder with suprapubic catheter, diabetes and hypertension, who presented to [facility] with fevers and back pain. The patient was noted to have pyuria and was admitted for complicated urinary tract infection, was started on meropenem and Infectious Disease was consulted. The patient was noted to have worsening kidney function and hyperkalemia. Nephrology consultation was called. The patient states he used to follow with a firearms inspector, but lost contact when he lost insurance and at this time, does not follow as an outpatient with anybody. The patient denies using any gkyj-aku-qtlhrdp medications. REVIEW OF SYSTEMS: A 12-point review of systems completed. All systems negative other than mentioned in the HPI. PAST MEDICAL HISTORY: 1. Chronic kidney disease stage 3. 2. Diabetes type 2, complicated by neuropathy. 3. Neurogenic bladder with suprapubic catheter. 4. Hypertension. 5. Anemia. PAST SURGICAL HISTORY: 1. Cataract surgery. 2. Cholecystectomy. 3. Right knee replacement. SOCIAL HISTORY: No tobacco. No alcohol. No IV drugs. FAMILY HISTORY: Positive for chronic kidney disease. ALLERGIES: NO KNOWN DRUG ALLERGIES. CURRENT MEDICATIONS: See list. PHYSICAL EXAMINATION: VITAL SIGNS: Blood pressure 136/87, pulse 75, respiratory rate 18, and temperature 96.5. GENERAL: No apparent distress. HEENT: Oropharynx clear. No scleral icterus. No peripheral edema. NECK: Supple. No elevation in jugular venous pressure. No lymphadenopathy. CHEST: Clear to auscultation anteriorly bilaterally. CARDIOVASCULAR: Regular rhythm. No murmurs or rubs. ABDOMEN: Soft. Positive bowel sounds. No tenderness. No rebound. EXTREMITIES: No edema. No clubbing. No cyanosis. SKIN: Warm. : Suprapubic Barcenas catheter with drea-colored urine. LABORATORY DATA: Sodium 137, potassium 5.9, chloride 110, CO2 21, BUN 36, creatinine 3.18, and baseline creatinine around 2.2. White count 3.1, hemoglobin 8, hematocrit 24.9, and platelets 121. ASSESSMENT AND PLAN: 1. Acute kidney injury on stage 3 chronic kidney disease secondary to urinary tract infection. Continue antibiotics per Infectious Disease. Chronic kidney disease stage 3 secondary to diabetic nephropathy. The patient is not on an RIVKA inhibitor and will not start at this time due to hyperkalemia. 2. Euvolemic on exam. We will give gentle IV fluids. 3. Pyuria. Await for culture and sensitivity. Antibiotics per Infectious Disease. 4. Anemia. We will check iron stores. 5. Hypertension. Blood pressure controlled. 6. Diabetes per primary team. MD DARRON Pisano/MODL /[id number]
[2018-06-23] VITALS (7 sets, daily range): BP systolic 121–181; BP diastolic 70–103
[2018-06-23] MEDS: MORPHINE SULFATE INJ 4 MG/ML INJ 1ML IV PRN ×5 (02:32→22:08)
[2018-06-23] MEDS: ONDANSETRON HCL INJ 2MG/ML 2ML 2 MG/ML VIAL IV PRN ×5 (02:33→22:08)
[2018-06-23] MEDS: HYDRALAZINE HCL 25 MG TAB PO PRN ×2 (05:25)
[2018-06-23 05:40] LABS: BASOPHILS % 0.3 % (0.0-1.0); EOSINOPHILS # (AUTO) 0.2 (0.0-0.4); EOSINOPHILS % 5.4 % (0.0-6.0); HEMATOCRIT 26.9 % (38.2-49.6); HEMOGLOBIN 8.4 g/dL (14.0-18.0); LYMPHOCYTES # (AUTO) 1.1 (1.0-3.2); LYMPHOCYTES % 30.5 % (18.0-39.1); MEAN CORPUSCULAR HEMOGLOBIN 26.3 pg (28-32); MEAN CORPUSCULAR HGB CONC 31.2 g/dL (31-35); MEAN CORPUSCULAR VOLUME 84.1 fL (81-99); MONOCYTES # (AUTO) 0.3 (0.2-0.8); MONOCYTES % 8.3 % (4.4-11.3); NEUTROPHILS # (AUTO) 1.9 (2.1-6.9); NEUTROPHILS % 54.6 % (38.7-80.0); PLATELET COUNT 119 x10e3/uL (140-360); RED CELL DISTRIBUTION WIDTH 13.7 % (11.7-14.4)
[2018-06-23 06:05] LABS: ANION GAP 12.7 mmol/L (8-16); CREATININE, SERUM 2.9 mg/dL (0.72-1.25); POTASSIUM 5.7 mmol/L (3.5-5.1)
[2018-06-23 06:09] LABS: MAGNESIUM 1.2 MG/DL (1.3-2.1); PHOSPHORUS 4.8 MG/DL (2.3-4.7)
[2018-06-23 06:10] LABS: CALCIUM 6.7 mg/dL (8.4-10.2)
--- NOTE | 2018-06-23 06:15 | NUR ---
Spoke with Dr. Potts concerning patient's calcium level of 6.7
--- NOTE | 2018-06-23 06:20 | NUR ---
Attempted to notify Dr. Rosado concerning patients calcium with no answer. Will attempt again later.
--- NOTE | 2018-06-23 06:35 | NUR ---
Spoke with Dr. Lui, covering for Dr. Karimi, concerning critical calcium. New orders received.
[2018-06-23] MEDS: INSULIN LISPRO 100 UNIT/1 ML 3ML VIAL SQ SCH ×7 (07:30→21:00)
[2018-06-23] MEDS ORDERED: CALCIUM GLUCONATE 10% INJ 9.3 MEQ in SODIUM CHLORIDE 0.9% 100 ML 100 ML IV ONE (07:30)
[2018-06-23 08:27] LABS: FERRITIN 273.51 ng/mL (21.81-274.66)
[2018-06-23] MEDS: CHOLECALCIFEROL 1,000 UNIT TAB PO SCH (09:05)
[2018-06-23] MEDS: GABAPENTIN 300 MG CAP PO SCH ×3 (09:05→21:00)
[2018-06-23] MEDS: NIFEDIPINE CR 30 MG TAB PO SCH (09:05)
[2018-06-23] MEDS: SODIUM CHLORIDE 0.9% 1000ML 1,000 ML IV SCH (13:00)
[2018-06-23] MEDS: CIPROFLOXACIN 200 MG/D5W 100ML 100 ML IV SCH ×2 (13:09→23:30)
[2018-06-23] MEDS: HYDRALAZINE HCL 25 MG TAB PO SCH ×2 (14:35→22:00)
[2018-06-23 15:13] LABS: ANION GAP 12.4 mmol/L (8-16); CREATININE, SERUM 2.66 mg/dL (0.72-1.25); POTASSIUM 5.4 mmol/L (3.5-5.1)
[2018-06-23 15:21] LABS: CALCIUM 6.9 mg/dL (8.4-10.2)
--- NOTE | 2018-06-23 15:30 | NUR ---
CALLED Bryan ISLAS ANSWERING SERVICE REGARDING BMP CALCIUM 5.4, AND POTASSIUM 5.4.
--- NOTE | 2018-06-23 16:13 | NUR ---
CALLED DR. TRAMMELL ANSWERING SERVICE AGAIN REGARDING CALCIUM 6.9 AND POTASSIUM 5.4.
[2018-06-23] MEDS ORDERED: SOD POLYSTYRENE SULFONATE SUSP 15 GM/60 ML BTL PO ONE (17:00)
[2018-06-23] MEDS: OYST-CAL-D 500MG TABLET PO SCH (17:53)
--- NOTE | 2018-06-23 20:00 | NUR ---
Received change of shift report from AM nurse.
--- NOTE | 2018-06-23 22:01 | NUR ---
Patient c/o pain =7 gen. Given pain med as ordered by .
--- NOTE | 2018-06-24 00:38 | NUR ---
Patient resting with no c/o at this time.
[2018-06-24] MEDS: MORPHINE SULFATE INJ 4 MG/ML INJ 1ML IV PRN ×5 (03:41→22:12)
[2018-06-24] MEDS: ONDANSETRON HCL INJ 2MG/ML 2ML 2 MG/ML VIAL IV PRN ×5 (03:42→22:12)
[2018-06-24 04:50] VITALS: BP 136/78
[2018-06-24] MEDS: HYDRALAZINE HCL 25 MG TAB PO SCH ×3 (06:00→21:16)
[2018-06-24 06:20] LABS: ANION GAP 11.8 mmol/L (8-16); CREATININE, SERUM 2.65 mg/dL (0.72-1.25); POTASSIUM 5.8 mmol/L (3.5-5.1)
[2018-06-24 06:22] LABS: CALCIUM 6.7 mg/dL (8.4-10.2)
--- NOTE | 2018-06-24 06:22 | NUR ---
Patient resting quitly with no c/o at this time. Lab called with critical lab of calcium at 6.7. Will inform
[2018-06-24] MEDS: INSULIN LISPRO 100 UNIT/1 ML 3ML VIAL SQ SCH ×7 (07:30→21:00)
[2018-06-24 07:39] VITALS: BP 149/72
[2018-06-24] MEDS: OYST-CAL-D 500MG TABLET PO SCH (10:16)
[2018-06-24] MEDS: NIFEDIPINE CR 30 MG TAB PO SCH (10:16)
[2018-06-24] MEDS: GABAPENTIN 300 MG CAP PO SCH ×3 (10:16→21:00)
[2018-06-24] MEDS: CHOLECALCIFEROL 1,000 UNIT TAB PO SCH (10:16)
[2018-06-24 10:28] VITALS: BP 149/72
[2018-06-24] MEDS ORDERED: SOD POLYSTYRENE SULFONATE SUSP 15 GM/60 ML BTL PO NR (10:30)
[2018-06-24 11:38] VITALS: BP 151/92
[2018-06-24] MEDS: SODIUM CHLORIDE 0.9% 1000ML 1,000 ML IV SCH (14:24)
--- NOTE | 2018-06-24 14:56 | NUR ---
CALL FROM INSURANCE [employer] OFFERING DC PLANNING ASSISTANCE PHONE
--- NOTE | 2018-06-24 15:10 | Progress Note ---
DATE: 06/24/2018 Medicine Progress Note I am covering for Dr. Potts. SUBJECTIVE: The patient was admitted for underlying acute kidney injury as well as underlying urinary tract infection. He is currently on antibiotics being managed by ID. Nephrology was consulted as well. The patient has no other complaints at this time. He is on a renal diet. His potassium is elevated. OBJECTIVE: VITAL SIGNS: Temperature is 97.3, pulse 82, respiratory rate is 21, blood pressure 151/93, and pulse ox 96% on room air. GENERAL: Not in acute distress. Alert and oriented x3. Cooperative on examination. HEENT: Head is normocephalic and atraumatic. Eyes; pupils are equal, round, and reactive to light bilaterally. Extraocular movements are intact bilaterally. Throat, no evidence of erythema or exudates in the posterior pharynx. Has poor dentition. NECK: Supple. Good range of motion. PULMONARY: Clear to auscultation bilaterally. No wheezing, no rales, no rhonchi, no crackles appreciated. CARDIOVASCULAR: Positive S1, S2. No murmurs, rubs, or gallops appreciated. ABDOMEN: Soft, nondistended, and nontender to palpation. Bowel sounds present. MUSCULOSKELETAL: Strength is 5/5 throughout. No evidence of any muscle deficits on examination. No weakness appreciated. NEUROLOGICAL: Cranial nerves II through XII grossly intact. No evidence of any neurological deficits on exam. SKIN: Intact. Warm to touch. Good cap refill. PSYCHIATRIC: Normal affect and mood. EXTREMITIES: No edema. Good range of motion throughout. LABS: Findings show white count 3.5, hemoglobin 8.4, hematocrit 26.9, and platelets of 119. Chemistry; sodium 136, potassium was 5.8, chloride 108, bicarb 22, anion gap of 11, BUN is 38, creatinine is 2.6, glucose is 99, calcium is 6.7, urinalysis consistent with UTI. Urine culture was found to be negative. Blood cultures were negative. IMAGING STUDIES: None. IMPRESSION: 1. Complicated urinary tract infection. 2. Acute kidney injury on chronic kidney disease, stage 3. 3. Hyperkalemia. 4. Hypertension. 5. Type 2 diabetes. PLAN: At this time, the patient is on IV antibiotics per ID recommendations. His blood and urine cultures were found to be negative. In relation to his hyperkalemia, Nephrology was consulted and given Kayexalate this morning. We will get a.m. labs. Urology was also consulted. Recommends outpatient followup with them. At this time, the patient is doing well with no other issues. If his potassium is improved, he can be discharged tomorrow with close followup with the consultants as described above. MD THOMAS Ramos/NOREEN /[id number]
[2018-06-24 15:29] VITALS: BP 157/96
--- NOTE | 2018-06-24 19:30 | NUR ---
Received change of shift report from AM nurse. Walking rounds completed at bedside.
[2018-06-24 20:00] VITALS: BP 150/94
[2018-06-25] VITALS (8 sets, daily range): BP systolic 122–147; BP diastolic 80–96
[2018-06-25] MEDS: MORPHINE SULFATE INJ 4 MG/ML INJ 1ML IV PRN ×5 (03:18→21:51)
[2018-06-25] MEDS: SODIUM CHLORIDE 0.9% 1000ML 1,000 ML IV SCH ×3 (04:37→21:39)
[2018-06-25 05:29] LABS: BASOPHILS % 0.5 % (0.0-1.0); EOSINOPHILS # (AUTO) 0.2 (0.0-0.4); EOSINOPHILS % 3.8 % (0.0-6.0); HEMOGLOBIN 8.6 g/dL (14.0-18.0); LYMPHOCYTES # (AUTO) 1.4 (1.0-3.2); MEAN CORPUSCULAR HEMOGLOBIN 26.9 pg (28-32); MEAN CORPUSCULAR HGB CONC 33.1 g/dL (31-35); MEAN CORPUSCULAR VOLUME 81.3 fL (81-99); MONOCYTES # (AUTO) 0.2 (0.2-0.8); MONOCYTES % 5.7 % (4.4-11.3); NEUTROPHILS # (AUTO) 2.4 (2.1-6.9); NEUTROPHILS % 56.1 % (38.7-80.0); PLATELET COUNT 147 x10e3/uL (140-360); RED CELL DISTRIBUTION WIDTH 13.7 % (11.7-14.4)
[2018-06-25 05:50] LABS: ANION GAP 12.3 mmol/L (8-16); POTASSIUM 5.3 mmol/L (3.5-5.1)
[2018-06-25 05:52] LABS: CALCIUM 6.8 mg/dL (8.4-10.2)
[2018-06-25] MEDS: HYDRALAZINE HCL 25 MG TAB PO SCH ×3 (06:08→21:38)
[2018-06-25 06:13] LABS: CREATININE, SERUM 2.49 mg/dL (0.72-1.25)
--- NOTE | 2018-06-25 06:49 | NUR ---
critical lab result for calcium reported to MD. Received new orders. will continue to monitor patient.
--- NOTE | 2018-06-25 07:03 | NUR ---
report given to day nurse. patient is resting comfortably in bed. bed is in lowest position and call north is within reach.
[2018-06-25] MEDS ORDERED: CALCIUM GLUCONATE 10% INJ 9.3 MEQ in SODIUM CHLORIDE 0.9% 100 ML 100 ML IV ONE (07:30)
[2018-06-25] MEDS: INSULIN LISPRO 100 UNIT/1 ML 3ML VIAL SQ SCH ×7 (07:30→21:39)
[2018-06-25] MEDS: ONDANSETRON HCL INJ 2MG/ML 2ML 2 MG/ML VIAL IV PRN ×4 (08:00→21:51)
[2018-06-25] MEDS: OYST-CAL-D 500MG TABLET PO SCH ×2 (08:56→17:00)
[2018-06-25] MEDS: GABAPENTIN 300 MG CAP PO SCH ×3 (08:56→21:37)
[2018-06-25] MEDS: NIFEDIPINE CR 30 MG TAB PO SCH (08:56)
[2018-06-25] MEDS: CHOLECALCIFEROL 1,000 UNIT TAB PO SCH (08:56)
[2018-06-25] MEDS ORDERED: SOD POLYSTYRENE SULFONATE SUSP 15 GM/60 ML BTL PO NR (09:00)
--- NOTE | 2018-06-25 10:25 | NUR ---
report given to Maddie for patient room transfer
--- NOTE | 2018-06-25 15:23 | NUR ---
Nutrition Screen Note RD Recommendation for Physician: -Continue renal diabetic diet as ordered -RD provided diet education on 06/25/2018. Plan of Care: RD following, monitoring for tolerance and adequacy, diet education Nutrition reason for involvement: LOS Primary Diagnose(s): 1. Complicated urinary tract infection. 2. Acute kidney injury on chronic kidney disease, stage 3. 3. Hyperkalemia. 4. Hypertension. 5. Type 2 diabetes. PMH: Neurogenic urinary bladder with suprapubic catheter, chronic kidney disease, chronic anemia, diabetes type 2 with insulin therapy Ht: 71in Wt: 220lb BMI: 30.7kg/m2 IBW: 172lb RD Assessment: (06/25/2018) Chart reviewed. Labs and meds reviewed. 37yo M, who was admitted for UTI. Renal function has improved. Kayexalate was given this AM for high K. Visited pt in the room. Pt reported fair appetite with 75-100% recorded meal intake. No complains of nausea or vomiting. LBM - 5/2. Pt denied any chewing or swallowing difficulty. No significant weight loss reported. RD provided diet education and pt was agreeable with plan. Will continue to monitor and follow. Current Diet: renal diabetic diet Malnutrition Evaluation (06/25/2018) The patient does not meet criteria for a specified degree of malnutrition at this time. Will re-evaluate at follow-up as appropriate. Diet Education Needs Assessment: Diet education indicated, pt was agreeable with plan. Learner(s): pt Time spent: 25minutes Barriers: No barriers identified. Cultural/Language Modifications: No cultural/language modifications noted. Pt speaks Niuean. Readiness: Acceptance Method: Explanation, handouts Topics: Renal diabetic diet (protein, phosphorus, potassium) Understanding/Compliance: Expect good understanding/compliance from pt. Will benefit from reinforcement. All questions have been answered. Nutrition Care Level: low Signed: Lupe Germain, MS, RD, LD
--- NOTE | 2018-06-25 17:18 | Progress Note ---
DATE: 06/25/2018 Medicine Progress Note SUBJECTIVE: The patient is doing well today with no other complaints. No overnight events. Potassium 5.3. The patient is doing well. LABORATORY DATA: Lab findings show white count of 4.2, hemoglobin 8.6, hematocrit 26, platelets of 147. Chemistry; sodium 138, potassium 5.3, chloride 109, bicarb 22, anion gap of 12, BUN 33, creatinine is 2.4, glucose is 136, calcium is 6.8. Urinalysis noted. Blood cultures, no growth. Urine cultures, no growth. PHYSICAL EXAMINATION: VITAL SIGNS: Temperature is 96.5, pulse 80, respiratory rate is 18, blood pressure 134/83, pulse ox 97% on room air. GENERAL: Not in acute distress. Alert and oriented x3. Cooperative on examination. HEENT: Head is normocephalic and atraumatic. Eyes; pupils are equal, round, and reactive to light bilaterally. Extraocular movements are intact bilaterally. Throat, no evidence of erythema or exudates in the posterior pharynx. Has poor dentition. NECK: Supple. Good range of motion. PULMONARY: Clear to auscultation bilaterally. No wheezing, no rales, no rhonchi, no crackles appreciated. CARDIOVASCULAR: Positive S1, S2. No murmurs, rubs, or gallops appreciated. ABDOMEN: Soft, nondistended, and nontender to palpation. Bowel sounds present. MUSCULOSKELETAL: Strength is 5/5 throughout. No evidence of any muscle deficits on examination. No weakness appreciated. NEUROLOGICAL: Cranial nerves II through XII grossly intact. No evidence of any neurological deficits on exam. SKIN: Intact. Warm to touch. Good cap refill. PSYCHIATRIC: Normal affect and mood. EXTREMITIES: No edema. Good range of motion throughout. IMPRESSION: 1. Complicated urinary tract infection. 2. Acute kidney injury on chronic kidney disease stage 3. 3. Hyperkalemia. 4. Hypertension. 5. Type 2 diabetes. PLAN: Continue IV antibiotics per ID recommendations. His blood and urine cultures were found to be negative at this time. His potassium is still elevated at 5.3. Nephrology is following closely. He will continue with his suprapubic catheter on discharge. Once his labs are better improved, hopefully by tomorrow, he will be discharged home. MD THOMAS Ramos/NOREEN /[id number]
--- NOTE | 2018-06-25 19:11 | NUR ---
PT RESTING ON BED BED SIDE REPORT GIVEN TO ONCOMING NURSE
[2018-06-26] VITALS (8 sets, daily range): BP systolic 132–162; BP diastolic 78–95
[2018-06-26] MEDS: MORPHINE SULFATE INJ 4 MG/ML INJ 1ML IV PRN ×4 (02:29→22:05)
[2018-06-26] MEDS: ONDANSETRON HCL INJ 2MG/ML 2ML 2 MG/ML VIAL IV PRN ×4 (02:29→22:05)
--- NOTE | 2018-06-26 02:30 | NUR ---
PATIENT C/O NAUSEA AND PAIN TO THE RIGHT SIDE OF THE ABDOMEN WITH PAIN SCORE #8, MEDICATED WITH MORPHINE AND ZOFRAN ORDERED. CALL LIGHT WITHIN EASY REACH, PATIENT INSTRUCTED TO CALL FOR ASSISTANCE NEEDED.
--- NOTE | 2018-06-26 03:09 | NUR ---
PATIENT COMPLAINED OF PAIN IN THE RIGHT LOWER ABDOMEN STATING HE WAS AT A LEVEL OF 8, WAS GIVEN MORPHINE AND ZOFRAN. CHECKED UP ON PATIENT TO REASSESS PAIN, STATED HE WAS FEELING BETTER AND AT PAIN LEVEL OF 5. PATIENT IS RESTING COMFORTABLY, CALL LIGHT WITHIN EASY REACH, WILL CONTINUE TO MONITOR.
[2018-06-26 06:38] LABS: ANION GAP 12.5 mmol/L (8-16); CREATININE, SERUM 2.54 mg/dL (0.72-1.25)
[2018-06-26 06:41] LABS: POTASSIUM 5.5 mmol/L (3.5-5.1)
[2018-06-26 06:42] LABS: CALCIUM 6.8 mg/dL (8.4-10.2)
--- NOTE | 2018-06-26 07:00 | NUR ---
RCD PT AT BED PT IS ALERT AND ORIENTED PT RESTING ON BED NO SIGNS OF ANY DISTRESS NOTED BED LOW AND LOCKED CALL LIGHT IN REACH
--- NOTE | 2018-06-26 07:02 | NUR ---
CALLED DR. TRAMMELL ABOUT THE PATIENTS ABNORMAL LABS, LEFT MESSAGE ON ANSWERING SERVICE, WAITING FOR CALL BACK. GAVE REPORT TO ONCOMING NURSE TO FOLLOW THROUGH WITH LAB REPORT.
[2018-06-26] MEDS: INSULIN LISPRO 100 UNIT/1 ML 3ML VIAL SQ SCH ×7 (07:30→22:05)
--- NOTE | 2018-06-26 07:30 | NUR ---
DR TRAMMELL RETURNED CALL AND GOT NEW ORDERS
[2018-06-26] MEDS ORDERED: SOD POLYSTYRENE SULFONATE SUSP 15 GM/60 ML BTL PO ONE (07:45)
[2018-06-26] MEDS: CHOLECALCIFEROL 1,000 UNIT TAB PO SCH (09:00)
[2018-06-26] MEDS: OYST-CAL-D 500MG TABLET PO SCH ×2 (09:00→16:07)
[2018-06-26] MEDS: NIFEDIPINE CR 30 MG TAB PO SCH (09:00)
[2018-06-26] MEDS: GABAPENTIN 300 MG CAP PO SCH ×3 (09:00→22:05)
--- NOTE | 2018-06-26 10:00 | NUR ---
NOHEMI CHANGED BY DR MAY
[2018-06-26] MEDS: FUROSEMIDE 20 MG TAB PO SCH (10:15)
--- NOTE | 2018-06-26 10:45 | NUR ---
PAGED DR RAMIRES AND NOTIFIED THE BLOOD SUGAR LEVEL
[2018-06-26] MEDS: SODIUM CHLORIDE 0.9% 1000ML 1,000 ML IV SCH (11:33)
[2018-06-26] MEDS ORDERED: FUROSEMIDE INJ 10 MG/ML 2 ML VIAL IV NR (16:00)
--- NOTE | 2018-06-26 18:28 | Progress Note ---
DATE: Medicine Progress Note SUBJECTIVE: The patient is doing well today with no complaints. His potassium is still elevated at 5.5. PHYSICAL EXAMINATION: VITAL SIGNS: Temperature is 95.3, pulse 82, respirations 14, blood pressure 132/78, pulse ox 98% on room air. GENERAL: Not in acute distress. Alert and oriented x3. Cooperative on examination. HEENT: Head is normocephalic and atraumatic. Eyes; pupils are equal, round, and reactive to light bilaterally. Extraocular movements are intact bilaterally. Throat, no evidence of erythema or exudates in the posterior pharynx. Has poor dentition. NECK: Supple. Good range of motion. PULMONARY: Clear to auscultation bilaterally. No wheezing, no rales, no rhonchi, no crackles appreciated. CARDIOVASCULAR: Positive S1 and S2. No murmurs, rubs, or gallops appreciated. ABDOMEN: Soft, nondistended, and nontender to palpation. Bowel sounds present. MUSCULOSKELETAL: Strength is 5/5 throughout. No evidence of any muscle deficits on examination. No weakness appreciated. NEUROLOGIC: Cranial nerves II through XII grossly intact. No evidence of any neurological deficits on exam. SKIN: Intact. Warm to touch. Good cap refill. PSYCHIATRIC: Normal affect and mood. EXTREMITIES: No edema. Good range of motion throughout. LABORATORY FINDINGS: Show a white count of 4.2, hemoglobin 8.6, hematocrit 26, and platelets of 147. Chemistry; sodium 139, potassium 5.5, repeat potassium is 5; chloride 109, bicarb 22, anion gap 12, BUN 31, creatinine 2.5, calcium is 6.8. MICROBIOLOGY: Blood cultures were negative. Urine cultures were negative. IMPRESSION: 1. Complicated urinary tract infection. 2. Acute kidney injury on chronic kidney disease stage 3. 3. Hyperkalemia. 4. Hypertension. 5. Type 2 diabetes. PLAN: The patient has been cleared by Urology for discharge. Potassium still elevated. We will give him Lasix 40 mg IV x1. Repeat labs in the morning. If potassium less than 5 tomorrow, we will discharge home. Nephrology is following. MD THOMAS Ramos/MODL /[id number]
--- NOTE | 2018-06-26 18:49 | NUR ---
PT RESTING ON BED BED SIDE REPORT GIVEN TO ONCOMING NURSE
[2018-06-27 00:10] VITALS: BP 140/88
[2018-06-27] MEDS: ONDANSETRON HCL INJ 2MG/ML 2ML 2 MG/ML VIAL IV PRN ×2 (03:13→12:30)
[2018-06-27] MEDS: MORPHINE SULFATE INJ 4 MG/ML INJ 1ML IV PRN ×2 (03:13→12:30)
[2018-06-27 04:00] VITALS: BP 136/94
--- NOTE | 2018-06-27 04:38 | NUR ---
PATIENT VOICED IMPROVED PAIN RELIEF STATING A PAIN LEVEL OF 4, SHOWING NO DISTRESS. RESTING AND SLEEPING COMFORTABLY UPON BEDSIDE ROUNDS, HAS CALL LIGHT WITHIN REACH, BED LOW, AND WILL CONTINUE TO MONITOR.
[2018-06-27 06:49] LABS: ANION GAP 12.2 mmol/L (8-16); CREATININE, SERUM 2.56 mg/dL (0.72-1.25); POTASSIUM 5.2 mmol/L (3.5-5.1)
[2018-06-27] MEDS: INSULIN LISPRO 100 UNIT/1 ML 3ML VIAL SQ SCH ×4 (07:30→11:30)
[2018-06-27] MEDS ORDERED: FUROSEMIDE INJ 10 MG/ML 4 ML VIAL IV ONE (07:45)
[2018-06-27] MEDS ORDERED: SOD POLYSTYRENE SULFONATE SUSP 15 GM/60 ML BTL PO ONE (07:45)
[2018-06-27] MEDS: FUROSEMIDE 20 MG TAB PO SCH (08:03)
[2018-06-27] MEDS: GABAPENTIN 300 MG CAP PO SCH ×2 (08:03→15:00)
[2018-06-27] MEDS: OYST-CAL-D 500MG TABLET PO SCH (08:03)
[2018-06-27] MEDS: NIFEDIPINE CR 30 MG TAB PO SCH (08:03)
[2018-06-27] MEDS: CHOLECALCIFEROL 1,000 UNIT TAB PO SCH (08:04)
[2018-06-27 08:08] VITALS: BP 151/94
[2018-06-27 08:14] VITALS: BP 151/94
[2018-06-27] MEDS ORDERED: SODIUM CHLORIDE 0.9% 1000ML 1,000 ML IV SCH (08:15)
[2018-06-27 11:57] VITALS: BP 139/88
[2018-06-27] MEDS ORDERED: NIFEDIPINE ER30 M1 PO (13:06)
[2018-06-27] MEDS ORDERED: FUROSEMIDE20 MG PO (13:06)
[2018-06-27] MEDS ORDERED: FUROSEMIDE INJ 10 MG/ML 4 ML VIAL IV NR (13:15)
[2018-06-27 13:40] LABS: ANION GAP 14.4 mmol/L (8-16); CALCIUM 7.1 mg/dL (8.4-10.2); CREATININE, SERUM 2.63 mg/dL (0.72-1.25); POTASSIUM 4.4 mmol/L (3.5-5.1)
--- NOTE | 2018-06-27 15:50 | NUR ---
PT WENT HOME IN SAFE CONDITION WITH HIS
--- NOTE | 2018-06-28 07:25 | Discharge Summary ---
FINAL DISCHARGE DIAGNOSES: 1. Complicated urinary tract infection. 2. Acute kidney injury on chronic kidney disease, stage 3. 3. Hyperkalemia, resolved. 4. Hypertension. 5. Type 2 diabetes. CONSULTANTS: For Infectious Disease, Urology, Nephrology. PHYSICAL EXAMINATION: VITAL SIGNS: Temperature is 96, pulse 80, respiratory rate is 16, blood pressure 139/88, pulse ox 97% on room air. LAB FINDINGS: Show white count 4.2, hemoglobin 8.6, hematocrit 26, platelets of 147. Chemistry, sodium 142, potassium 4.4, chloride 107, bicarb 25, anion gap of 14, BUN is 34, creatinine is 2.6, glucose is 105, calcium 7.1. LFTs are high. A1c 5.7, phosphorus is 4.8, iron saturation is 33%. TSH is 2.1. Vitamin B12 was 403. Albumin was 2.1. Urinalysis showed evidence concerning for urinary tract infection, but urine culture was negative. Cultures; blood cultures were negative. Urine cultures were negative. IMAGING STUDIES: None. HOSPITAL COURSE: This is a 37-year-old male with a long history of neurogenic bladder, came into the ED with increased urinary frequency, found to have concerns of underlying infection and cloudy urine and was admitted for further evaluation. Urology was consulted and suprapubic catheter was exchanged by Urology. He was found to be in hyperkalemia with acute on CKD, stage 4. The patient's hyperkalemia was managed medically with much improvement. His discharge potassium was 4.4 with much improvement. The patient was then cleared for discharge by Nephrology. Infectious Disease was consulted as well for underlying complicated UTI, but his urine cultures were negative. ID recommended discontinuing all antibiotics and to monitor without. On discharge, the patient was as per recommendations by Infectious Disease. The patient now has been cleared by discharge from Urology, Nephrology and Infectious Disease. On the day of discharge, vital signs stable, labs being stable. The patient was seen, evaluated, and examined thoroughly on the day of discharge. No other complaints. The patient verbalized understanding and agrees to plan of care and followup appointment as an outpatient with the primary care physician in 1 week and a consult as described above in about 2 weeks' time. MEDICATIONS: See med reconciliation form. DISPOSITION: Home. CONDITION: Stable. DIET: Renal, diabetic. In the event of any worsening symptoms, the patient was advised to come back to the ED for further evaluation. Discharge summary took greater than 35 minutes. MD THOMAS Ramos/MODL /[id number]
== END 2018-06-27 15:47 | disposition home or self-care (01) | DRG 699 ==
LOC: ER 16:12 → ERHOLD 18:21 → IMCU 20:46 → MED/SURG2 06-25 10:46
PROVIDERS: ADMIT Internal Medicine; ATTEND Internal Medicine
DX: T83.510A Infection and inflammatory reaction due to cystostomy catheter, initial encounter (principal); N30.01 Acute cystitis with hematuria; N17.9 Acute kidney failure, unspecified; D61.818 Other pancytopenia; N18.4 Chronic kidney disease, stage 4 (severe); E11.42 Type 2 diabetes mellitus with diabetic polyneuropathy; Z87.440 Personal history of urinary (tract) infections; N31.9 Neuromuscular dysfunction of bladder, unspecified; D64.9 Anemia, unspecified; Z90.49 Acquired absence of other specified parts of digestive tract; Z91.041 Radiographic dye allergy status; E11.22 Type 2 diabetes mellitus with diabetic chronic kidney disease; I12.9 Hypertensive chronic kidney disease with stage 1 through stage 4 chronic kidney disease, or unspecified chronic kidney disease; N47.1 Phimosis; R33.9 Retention of urine, unspecified; E83.51 Hypocalcemia; R53.81 Other malaise; Z79.4 Long term (current) use of insulin
CPT/HCPCS: 36415; 80048; 80053; 81001; 82570; 82607; 82728; 82746; 82948; 83036; 83540; 83735; 84100; 84132; 84156; 84443; 84466; 85025; 87040; 87086; 96376; 99284; J0610; J0696; J1885; J1940; J2270; J2405; J3475; J7030; J7799

== ENCOUNTER 2018-10-17 00:45 | Inpatient (IN) | payer BC ==
[~2018-10-17] VITALS: Ht 180.3 cm; Wt 99.8 kg
[2018-10-17] VITALS (10 sets, daily range): BP systolic 92–163; BP diastolic 53–96
[~2018-10-17 00:45] MED LIST changes: +FUROSEMIDE20 MG PO; +NIFEDIPINE ER30 M1 PO
--- OUTSIDE RECORDS SUMMARY | 2018-10-17 00:49 | XMS REPORT | Clinical Summary ---
Author Author [facility] Address Unknown Phone Unavailable Care Team Providers Care Writing Center Director Name Role Phone Donald Potts MD PCP [...] Used Never Smoker Smokeless Tobacco: Never Used Drinks/Week oz/Week Comments Alcohol Use No Sex Assigned at Date Recorded Not [...] / Serial / Lot Implanted Type Area [facility] 11/22/2025 [id number] / / [id number] Screw Bone Canc Dome 6.5x25mm Ltxf Hip Joint Right: Knee DEPUY [place] - [id number] Implants ORTHO Implanted: Qty: 1 on 03/27/2016 by Silke Chowdary MD at [facility] 01/22/2026 [id number] / / [id number] Screw Bone Canc Dome 6.5x25mm Ltxf Hip Joint Right: Knee DEPUY [place] - [id number] Implants ORTHO Implanted: Qty: 1 on 03/27/2016 by Silke Chowdary MD at [facility] 10/23/2026 [id number] / / [id number] [place] Stem [id number] Fluted - IPM Right: Knee DEPUY [id number] IMPLANT ORTHOPAEDI Implanted: Qty: 1 on 04/16/2017 by [employer] Silke Chowdary MD at [facility] 12/23/2026 [id number] / / [id number] [place] Fem Slv Ful Por 40mm - IPM Right: Knee DEPUY [id number] IMPLANT ORTHOPAEDI Implanted: Qty: 1 on 04/16/2017 by [employer] Silke Chowdary MD at [facility] 11/22/2025 [id number] / / [id number] Srom [facility] Dist Aug Xs/S/ 10mm - IPM Right: Knee DEPUY [id number] IMPLANT ORTHOPAEDI Implanted: Qty: 1 on 04/16/2017 by [employer] Silke Chowdary MD at [facility] 11/22/2024 [id number] / / [id number] Srom [facility] Dist Aug Xs/S/ 10mm - IPM Right: Knee DEPUY [id number] IMPLANT ORTHOPAEDI Implanted: Qty: 1 on 04/16/2017 by [employer] Silke Chowdary MD at [facility] 10/23/2021 [id number] / / [id number] [facility]/Pin Med Rt 71x66 - IPM Right: Knee DEPUY [id number] IMPLANT ORTHOPAEDI Implanted: Qty: 1 on 04/16/2017 by [employer] Silke Chwodary MD at [facility] 10/24/2019 [id number] / / [id number] Lps Univ Tib Hin Ins Med 31mm - IPM Right: Knee DEPUY [id number] IMPLANT ORTHOPAEDI Implanted: Qty: 1 on 04/16/2017 by [employer] Silek Chowdary MD at [facility] 01/22/2026 [id number] / / [id number] Augment Fml P.F.C Sigma Distl Rt Sz Knee Joint Right: Knee DEPUY 5 4mm - [id number] Implants ORTHO Implanted: Qty: 1 on 03/27/2016 by Silke Chowdary MD at [facility] 01/22/2026 [id number] / / [id number] Stem Tib Cementd 88b60uh P.F.C Knee Joint Right: Knee DEPUY Sigma - [id number] Implants ORTHO Implanted: Qty: 1 on 03/27/2016 by Silke Chowdary MD at [facility] 10/22/2020 [id number] / / [id number] Augment Fml P.F.C Sigma Distl Rt Sz Knee Joint Right: Knee DEPUY 5 8mm - [id number] Implants ORTHO Implanted: Qty: 1 on 03/27/2016 by Silke Chowdary MD at [facility] 09/22/2025 [id number] / / [id number] Stem Tib Cementd 60b33lf Knee Joint Right: Knee DEPUY P.F.C.Sigma - [id number] Implants ORTHO Implanted: Qty: 1 on 03/27/2016 by Silke Chowdary MD at [facility] 12/23/2020 [id number] / / [id number] Patella Prosths Oval / Dome 3-Post Knee Joint Right: Knee DEPUY 38mm Std Uhmwpe - [id number] Implants ORTHO Implanted: Qty: 1 on 03/27/2016 by Silke Chowdary MD at [facility] 05/23/2020 [id number] / / [id number] Insert Tib Stblzd Rp Sz 5 25mm Knee Joint Right: Knee DEPUY P.F.C Sigma - [id number] Implants ORTHO Implanted: Qty: 1 on 03/27/2016 by Silke Chowdary MD at [facility] 02/22/2026 [id number] / / [id number] Tray Rev Mbt 5x53.1x80.6x61.8mm - Knee Joint Right: Knee DEPUY [id number] Implants ORTHO Implanted: Qty: 1 on 03/27/2016 by Silke Chowdary MD at [facility] 09/22/2025 [id number] / / [id number] Component Fml Rt N-Por Tc3 Sz 5 Knee Joint Right: Knee DEPUY [id number] P.F.C Sigma - [id number] Implants ORTHO Implanted: Qty: 1 on 03/27/2016 by Silke Cohwdary MD at [facility] 01/22/2026 [id number] / / [id number] Adapter Fml P.F.C Sigma 5deg - Knee Joint Right: Knee DEPUY [id number] Implants ORTHO-KNEE Implanted: Qty: 1 on 03/27/2016 by Silke Gutierres MD at [facility] 11/22/2025 [id number] / / [id number] Adapter Fml P.F.C Sigma [place]st [place] Knee Joint Right: Knee DEPUY +2/-2mm - [id number] Implants ORTHO-KNEE Implanted: Qty: 1 on 03/27/2016 by Silke Gutierres MD at [facility] 01/22/2017 [id number] / / [id number] Cement Bone Hiviscocty 40gr Surgical Right: Knee DEPUY Smartset - [id number] Bone ORTHO Implanted: Qty: 2 on 03/27/2016 by Silke Monge MD at [facility] 12/23/2016 [id number] / / [id number] Cement Bone Hiviscocty 40gr Surgical Right: Knee DEPUY Smartset - [id number] Bone ORTHO Implanted: Qty: 1 on 03/27/2016 by Silke Monge MD at [facility] 10/23/2018 [id number] / / [id number] Cement Bone Hiviscocty 40gr Surgical Right: Knee DEPUY Smartset - [id number] Bone ORTHO Implanted: 04/16/2017 at [facility] (Quantity not on file) 12/24/2020 [id number] / / [id number] Cement Bone Prep Univl Insrtr Sculp Surgical Right: Knee SANDOR Fml [place] Suct Sm - [id number] Implants; INSTRUMENT Implanted: Qty: 1 on 03/27/2016 by [employer]; S Silke Chowdary MD at [facility] Extenders; Surgical Wires [id number] / / Immobilizer Knee Tripnl Dlx W/ Patl Surgical N/A: N/A DEROYAL Strp Univl Canvas 24in - [id number] Implants; INDUST[place]ES Implanted: 04/16/2017 at [facility] Expand[employer]; HOSPITAL (Quantity not on file) Extenders; Surgical Wires Results Not on fileafter 10/16/2017 Insurance Type Payer Benefit Subscriber ID Effective Phone Address Plan / Dates Group Workers Comp WORKERS COMP PARADIGM xxxxxxxxxxxxxxx 2015- HEALTH xxxxx Present ARNAV Guarantor Name Account Relation to Date of Phone Billing Address Type Patient [id number] Workers Employer 02/23/1900 [id number] [place] [employer] Comp (Home) [address] [address] Sukh Lozano Personal/F Self 1980 [id number] [employer] amily (Home) [address] [address] Sukh Lozano Third Self 1980 [id number] [employer] [place] (Home) [place] [address] Advance Directives For more information, please contact: [phone] Patient Net Fisher Explanation Type Date Recorded Advance Directives, Living Will and Medical Power of Manager Art Advance Directives, 04/05/2016 3:13 AM Living Will and Medical Power of Manager Art
--- OUTSIDE RECORDS SUMMARY | 2018-10-17 00:49 | XMS REPORT | Continuity of Care Document ---
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 Active 06/17/2017 [facility] Acute renal failure Active 08/09/2015 Problem 05/07/2018 [facility] Dehydration Active 08/09/2015 Problem 05/07/2018 [facility] Diarrhea Active 08/09/2015 Problem 05/07/2018 [facility] GI bleed Active 08/09/2015 Problem 05/07/2018 [facility] Hyperglycemia Active 08/09/2015 Problem 05/07/2018 [facility] Renal insufficiency Active 04/15/2015 Problem 09/01/2017 [facility] Sepsis Active 04/15/2015 Problem 05/07/2018 [facility] Renal insufficiency Active 04/15/2015 Problem 05/07/2018 [facility] Bacteremia Active 03/30/2015 Problem 05/07/2018 [facility] Prostatitis Active 03/30/2015 Problem 05/07/2018 [facility] Urinary tract infection Active 03/30/2015 Problem 05/07/2018 [facility] Pyelonephritis Active 02/10/2015 Problem 05/07/2018 [facility] Acute renal insufficiency Active Problem 05/07/2018 [facility] Bladder wall thickening Active Problem 05/07/2018 [facility] Fever Active Problem 05/07/2018 [facility] Hydroureteronephrosis Active Problem 05/07/2018 [facility] Hypomagnesemia Active Problem 05/07/2018 [facility] Indwelling catheter present on admission Active Problem 05/07/2018 [facility] Obstructive uropathy Active Problem 05/07/2018 [facility] Displacement of ureteral stent Active Problem 09/01/2017 [facility] Displacement of ureteral stent Active Problem 05/07/2018 [facility] Vomiting Active Problem 05/07/2018 [facility] Medications Medication Details Route Status Patient Instructions Ordering Provider Order Date Source Amlodipine Besylate 10 Mg Tablet, 10 Mg Oral Daily Active 05/05/2018 [facility] Metoprolol Tartrate 25 Mg Tablet, 25 Mg Oral Twice A Day Active 05/05/2018 [facility] Ciprofloxacin Hcl (Cipro) 500 Mg Tablet, 500 Mg Oral Daily Active 08/29/2017 [facility] Doxycycline Hyclate 100 Mg Capsule, 100 Mg Oral Twice A Day Active 08/29/2017 [facility] Fluconazole 100 Mg Tablet, 200 Mg Oral Daily Active 08/29/2017 [facility] Insulin Detemir (Levemir) 100 Unit/1 Ml Vial, 20 Units Sub-Q Bedtime Active 08/29/2017 [facility] Oxybutynin Chloride (Oxybutynin Chloride Er) 5 Mg Tab.er.24, 15 Mg Oral Daily Active 08/29/2017 [facility] Doxycycline Hyclate 100 Mg Capsule, 100 Mg Oral Twice A Day Active 08/29/2017 [facility] Fluconazole 100 Mg Tablet, 200 Mg Oral Daily Active 08/29/2017 [facility] Insulin Detemir (Levemir) 100 Unit/1 Ml Vial, 20 Units Sub-Q Bedtime Active 08/29/2017 [facility] Oxybutynin Chloride (Oxybutynin Chloride Er) 5 Mg Tab.er.24, 15 Mg Oral Daily Active 08/29/2017 [facility] Cephalexin 500 Mg Capsule, 500 Mg Oral Four Times Daily Active 06/04/2016 [facility] Hydrocodone Bit/Acetaminophen ([place] 5-325 Tablet) 1 Each Tablet, 1 Tab Oral Every 6 Hours as needed for Pain Active 06/04/2016 [facility] Promethazine Hcl 25 Mg Tablet, 25 Mg Oral Every 4 Hours Active 06/04/2016 [facility] Tramadol Hcl (Ultram) 50 Mg Tablet, 1-2 Tab Oral Every 6 Hours as needed for Pain Active 06/04/2016 [facility] Cephalexin 500 Mg Capsule, 500 Mg Oral Four Times Daily Active 06/04/2016 [facility] Hydrocodone Bit/Acetaminophen ([place] 5-325 Tablet) 1 Each Tablet, 1 Tab Oral Every 6 Hours as needed for Pain Active 06/04/2016 [facility] Promethazine Hcl 25 Mg Tablet, 25 Mg Oral Every 4 Hours Active 06/04/2016 [facility] Fluticasone Propionate 16 Gm [place].susp, 1 Twice A Day Active 08/08/2015 [facility] Meropenem (Merrem) 500 Mg Inj, 500 Mg Intraven Every 8 Hours Active 08/08/2015 [facility] Metoclopramide Hcl (Reglan) 10 Mg Tablet, 10 Mg Before Meals And At Bedtime Active 08/08/2015 [facility] Pantoprazole Sodium (Protonix) 40 Mg Tablet.dr, 40 Mg Oral Every Morning Active 08/08/2015 [facility] Fluticasone Propionate 16 Gm [place].susp, 1 Twice A Day Active 08/08/2015 [facility] Metoclopramide Hcl (Reglan) 10 Mg Tablet, 10 Mg Before Meals And At Bedtime Active 08/08/2015 [facility] Amoxicillin/Potassium Clav (Augmentin 500-125 Tablet) 1 Each Tablet, 500 Mg Oral Twice A Day Active 04/11/2015 [facility] Fluconazole (Diflucan) 100 Mg Tablet, Mg Oral Daily Active 04/11/2015 [facility] Amoxicillin/Potassium Clav (Augmentin 500-125 Tablet) 1 Each Tablet, 500 Mg Oral Twice A Day Active 04/11/2015 [facility] Fluconazole (Diflucan) 100 Mg Tablet, Mg Oral Daily Active 04/11/2015 [facility] Tamsulosin Hcl (Flomax*) 0.4 Mg Cap, 0.4 Mg Oral Bedtime Active 03/30/2015 [facility] Tamsulosin Hcl (Flomax*) 0.4 Mg Cap, 0.4 Mg Oral Bedtime Active 03/30/2015 [facility] Acetaminophen With Codeine (Tylenol With Codeine #3 Tablet) 1 Each Tablet, 300 Mg Oral Every 6 Hours as needed for Pain Active 03/08/2015 [facility] Senna Fruit/Conc/Doc Sod/Bisa (Senna-S Tablet) 1 Ea Tab, 1 Each Oral Bedtime Active 03/08/2015 [facility] Acetaminophen With Codeine (Tylenol With Codeine #3 Tablet) 1 Each Tablet, 300 Mg Oral Every 6 Hours as needed for Pain Active 03/08/2015 [facility] Senna Fruit/Conc/Doc Sod/Bisa (Senna-S Tablet) 1 Ea Tab, 1 Each Oral Bedtime Active 03/08/2015 [facility] Hydrocodone Bit/Acetaminophen ([place] 5-325 Tablet) 1 Each Tablet, Tab Oral Daily Active 02/22/2015 [facility] Insulin Npl/Insulin Lispro (Humalog Mix 50-50 Kwikpen) 100 Unit/1 Ml Insuln.pen, Sub-Q 15 Units Every A.m. Active 02/22/2015 [facility] Lisinopril 10 Mg Tablet, Tab Oral Daily Active 02/22/2015 [facility] Amoxicillin/Potassium Clav (Augmentin 875-125 Tablet) 1 Each Tablet, Tab Oral Twice A Day Active 02/11/2015 [facility] Cephalexin Monohydrate (Keflex) 500 Mg Capsule, 500 Mg Oral Three Times A Day Active 02/11/2015 [facility] Docusate Sodium (Colace) 100 Mg Cap, Cap Oral Daily Active 02/11/2015 [facility] Insulin Glargine,Hum.rec.anlog (Lantus) 100 Unit/1 Ml [place], Sub-Q 45 Units At Bedtime Active 02/11/2015 [facility] Metformin Hcl 500 Mg Tablet, 500 Mg Oral Twice Daily Active 02/11/2015 [facility] Amlodipine Besylate 10 Mg Tablet Daily Active [facility] Gabapentin 300 Mg Capsule Three Times A Day Active [facility] Insulin Aspart (Novolog) 100 Unit/1 Ml [place] Before Meals Active [facility] Metoprolol Tartrate 25 Mg Tablet Twice A Day Active [facility] Gabapentin 300 Mg Capsule Twice A Day Active [facility] Insulin Aspart (Novolog) 100 Unit/1 Ml Cartridge Before Meals Active [facility] Nifedipine (Nifedipine Er) 30 Mg Tab.er.24 Daily Active [facility] Vyzulta Daily Active [facility] Allergies, Adverse Reactions, Alerts Substance Category Reaction Severity Reaction type Status Date Reported Comments Source PO CONTRAST Mild Allergy to Substance Active 07/06/2007 [facility] Iodinated Contrast- Oral and IV Dye Unknown Allergy to Substance Active 05/03/2018 [facility] No Known Medication Allergies Assertion Drug allergy [facility] Immunizations No Data Provided for This Section Results Order Name Results Value Reference Range Date Interpretation Comments Source Capillary blood glucose measurement by glucometer (mass/volume) 72 70 - 120 05/07/2018 [facility] Serum or plasma sodium measurement (moles/volume) 136 136 - 145 05/06/2018 [facility] Serum or plasma potassium measurement (moles/volume) 5.2 3.5 - 5.1 05/06/2018 [facility] Serum or plasma chloride measurement (moles/volume) 111 98 - 107 05/06/2018 [facility] Serum or plasma carbon dioxide, total measurement (moles/volume) 21 22 - 29 05/06/2018 [facility] Serum or plasma anion gap 9.2 8 - 16 05/06/2018 [facility] Serum or plasma urea nitrogen measurement (mass/volume) 26 7 - 26 05/06/2018 [facility] Serum or plasma creatinine measurement (mass/volume) 2.22 0.72 - 1.25 05/06/2018 [facility] Serum or plasma urea nitrogen/creatinine mass ratio 12 6 - 25 05/06/2018 [facility] Estimated glomerular filtration rate (GFR) determination 33 60 05/06/2018 [facility] Glucose measurement 144 74 - 118 05/06/2018 [facility] Serum or plasma calcium measurement (mass/volume) 6.5 8.4 - 10.2 05/06/2018 [facility] Blood leukocytes automated count (number/volume) 3.55 4.8 - 10.8 05/06/2018 [facility] Blood erythrocytes automated count (number/volume) 3.25 4.3 - 5.7 05/06/2018 [facility] Blood hemoglobin measurement (moles/volume) 8.6 14.0 - 18.0 05/06/2018 [facility] Automated blood hematocrit (volume fraction) 27.2 38.2 - 49.6 05/06/2018 [facility] Automated erythrocyte mean corpuscular volume 83.7 81 - 99 05/06/2018 [facility] Automated erythrocyte mean corpuscular hemoglobin (mass per erythrocyte) 26.5 28 - 32 05/06/2018 [facility] Automated erythrocyte mean corpuscular hemoglobin concentration measurement (mass/volume) 31.6 31 - 35 05/06/2018 [facility] RDW BldCo-Rto 14.6 11.7 - 14.4 05/06/2018 [facility] Automated blood platelet count (count/volume) 113 140 - 360 05/06/2018 [facility] Automated blood segmented neutrophil count as percentage of total leukocytes 59.6 38.7 - 80.0 05/06/2018 [facility] Automated blood lymphocyte count as percentage ot total leukocytes 24.8 18.0 - 39.1 05/06/2018 [facility] Automated blood monocyte count as percentage of total leukocytes 8.5 4.4 - 11.3 05/06/2018 [facility] Automated blood eosinophil count as percentage of total leukocytes 5.1 0.0 - 6.0 05/06/2018 [facility] Automated blood basophil count as percentage of total leukocytes 0.6 0.0 - 1.0 05/06/2018 [facility] IM GRANULOCYTES % 1.4 0.0 - 1.0 05/06/2018 [facility] Automated blood neutrophil count 2.1 2.1 - 6.9 05/06/2018 [facility] Blood lymphocytes count (number/volume) 0.9 1.0 - 3.2 05/06/2018 [facility] Blood monocytes automated count (number/volume) 0.3 0.2 - 0.8 05/06/2018 [facility] Automated blood eosinophil count 0.2 0.0 - 0.4 05/06/2018 [facility] Automated blood basophil count (count/volume) 0.0 0.0 - 0.1 05/06/2018 [facility] Absolute Immature Granulocyte (auto 0.05 0 - 0.1 05/06/2018 [facility] Serum or plasma total bilirubin measurement (mass/volume) 0.2 0.2 - 1.2 05/05/2018 [facility] Aspartate Amino Transf (AST/SGOT) 31 5 - 34 05/05/2018 [facility] Serum or plasma alanine aminotransferase measurement (enzymatic activity/volume) 44 0 - 55 05/05/2018 [facility] Serum or plasma protein measurement (mass/volume) 6.6 6.5 - 8.1 05/05/2018 [facility] Serum or plasma albumin measurement (mass/volume) 2.4 3.5 - 5.0 05/05/2018 [facility] Plasma globulin measurement (mass/volume) 4.2 2.3 - 3.5 05/05/2018 [facility] Serum or plasma albumin/globulin mass ratio 0.6 0.8 - 2.0 05/05/2018 [facility] Serum or plasma alkaline phosphatase measurement (enzymatic activity/volume) 272 40 - 150 05/05/2018 [facility] Urine color determination YELLOW YELLOW 05/03/2018 [facility] Urine clarity CLOUDY CLEAR 05/03/2018 [facility] Specific gravity of Urine by Test strip 1.025 1.010 - 1.025 05/03/2018 [facility] Urine pH measurement by automated test strip 6 5 - 7 05/03/2018 [facility] Urine leukocyte esterase detection by dipstick 2+ NEGATIVE 05/03/2018 [facility] Urine nitrite detection POSITIVE NEGATIVE 05/03/2018 [facility] Urine protein measurement by test strip (mass/volume) 3+ NEGATIVE 05/03/2018 [facility] Urine glucose detection 1+ NEGATIVE 05/03/2018 [facility] Urine ketones detection by automated test strip NEGATIVE NEGATIVE 05/03/2018 [facility] Urine urobilinogen measurement by test strip (mass/volume) 0.2 0.2 - 1 05/03/2018 [facility] Urine total bilirubin measurement (mass/volume) NEGATIVE NEGATIVE 05/03/2018 [facility] Urine erythrocytes detection 4+ NEGATIVE 05/03/2018 [facility] Automated urine sediment leukocyte count by microscopy (number/high power field) >50 0 - 5 05/03/2018 [facility] Erythrocytes detection in urine sediment by light microscopy 21-50 0 - 5 05/03/2018 [facility] Bacteria detection in urine sediment by light microscopy MANY NONE 05/03/2018 [facility] Epithelial cells detection in urine sediment by light microscopy RARE NONE 05/03/2018 [facility] Influenza virus A and B antigen identification by immunofluorescence NEGATIVE NEGATIVE 05/03/2018 [facility] Streptococcus pyogenes antigen detection in throat NEGATIVE NEGATIVE 05/03/2018 [facility] Serum or plasma amylase measurement (enzymatic activity/volume) 62 25 - 125 05/03/2018 [facility] Serum or plasma lipase measurement (enzymatic activity/volume) 14 8 - 78 05/03/2018 [facility] Capillary blood glucose measurement by glucometer (mass/volume) Capillary blood glucose measurement by glucometer (mass/volume) 190 70 - 120 09/01/2017 [facility] Estimated glomerular filtration rate (GFR) determination Estimated glomerular filtration rate (GFR) determination 43 60 08/31/2017 [facility] Glucose measurement Glucose measurement 165 74 - 118 08/31/2017 [facility] Serum or plasma anion gap Serum or plasma anion gap 11.7 8 - 16 08/31/2017 [facility] Serum or plasma calcium measurement (mass/volume) Serum or plasma calcium measurement (mass/volume) 8.2 8.4 - 10.2 08/31/2017 [facility] Serum or plasma carbon dioxide, total measurement (moles/volume) Serum or plasma carbon dioxide, total measurement (moles/volume) 20 22 - 29 08/31/2017 [facility] Serum or plasma chloride measurement (moles/volume) Serum or plasma chloride measurement (moles/volume) 109 98 - 107 08/31/2017 [facility] Serum or plasma creatinine measurement (mass/volume) Serum or plasma creatinine measurement (mass/volume) 1.79 0.72 - 1.25 08/31/2017 [facility] Serum or plasma potassium measurement (moles/volume) Serum or plasma potassium measurement (moles/volume) 4.7 3.5 - 5.1 08/31/2017 [facility] Serum or plasma sodium measurement (moles/volume) Serum or plasma sodium measurement (moles/volume) 136 136 - 145 08/31/2017 [facility] Serum or plasma urea nitrogen measurement (mass/volume) Serum or plasma urea nitrogen measurement (mass/volume) 20 7 - 26 08/31/2017 [facility] Serum or plasma urea nitrogen/creatinine mass ratio Serum or plasma urea nitrogen/creatinine mass ratio 11 6 - 25 08/31/2017 [facility] Automated blood basophil count (count/volume) Automated blood basophil count (count/volume) 0.0 0.0 - 0.1 08/30/2017 [facility] Automated blood basophil count as percentage of total leukocytes Automated blood basophil count as percentage of total leukocytes 0.2 0.0 - 1.0 08/30/2017 [facility] Automated blood eosinophil count Automated blood eosinophil count 0.1 0.0 - 0.4 08/30/2017 [facility] Automated blood eosinophil count as percentage of total leukocytes Automated blood eosinophil count as percentage of total leukocytes 2.1 0.0 - 6.0 08/30/2017 [facility] Automated blood hematocrit (volume fraction) Automated blood hematocrit (volume fraction) 29.6 38.2 - 49.6 08/30/2017 [facility] Automated blood lymphocyte count as percentage ot total leukocytes Automated blood lymphocyte count as percentage ot total leukocytes 13.9 18.0 - 39.1 08/30/2017 [facility] Automated blood monocyte count as percentage of total leukocytes Automated blood monocyte count as percentage of total leukocytes 9.8 4.4 - 11.3 08/30/2017 [facility] Automated blood neutrophil count Automated blood neutrophil count 3.9 2.1 - 6.9 08/30/2017 [facility] Automated blood platelet count (count/volume) Automated blood platelet count (count/volume) 115 140 - 360 08/30/2017 [facility] Automated blood segmented neutrophil count as percentage of total leukocytes Automated blood segmented neutrophil count as percentage of total leukocytes 73.6 38.7 - 80.0 08/30/2017 [facility] Automated erythrocyte mean corpuscular hemoglobin (mass per erythrocyte) Automated erythrocyte mean corpuscular hemoglobin (mass per erythrocyte) 26.0 28 - 32 08/30/2017 [facility] Automated erythrocyte mean corpuscular hemoglobin concentration measurement (mass/volume) Automated erythrocyte mean corpuscular hemoglobin concentration measurement (mass/volume) 31.8 31 - 35 08/30/2017 [facility] Automated erythrocyte mean corpuscular volume Automated erythrocyte mean corpuscular volume 82.0 81 - 99 08/30/2017 [facility] Blood erythrocytes automated count (number/volume) Blood erythrocytes automated count (number/volume) 3.61 4.3 - 5.7 08/30/2017 [facility] Blood hemoglobin measurement (moles/volume) Blood hemoglobin measurement (moles/volume) 9.4 14.0 - 18.0 08/30/2017 [facility] Blood leukocytes automated count (number/volume) Blood leukocytes automated count (number/volume) 5.33 4.8 - 10.8 08/30/2017 [facility] Blood lymphocytes count (number/volume) Blood lymphocytes count (number/volume) 0.7 1.0 - 3.2 08/30/2017 [facility] Blood monocytes automated count (number/volume) Blood monocytes automated count (number/volume) 0.5 0.2 - 0.8 08/30/2017 [facility] Plasma globulin measurement (mass/volume) Plasma globulin measurement (mass/volume) 4.6 2.3 - 3.5 08/30/2017 [facility] Serum or plasma alanine aminotransferase measurement (enzymatic activity/volume) Serum or plasma alanine aminotransferase measurement (enzymatic activity/volume) 40 0 - 55 08/30/2017 [facility] Serum or plasma albumin measurement (mass/volume) Serum or plasma albumin measurement (mass/volume) 2.8 3.5 - 5.0 08/30/2017 [facility] Serum or plasma albumin/globulin mass ratio Serum or plasma albumin/globulin mass ratio 0.6 0.8 - 2.0 08/30/2017 [facility] Serum or plasma alkaline phosphatase measurement (enzymatic activity/volume) Serum or plasma alkaline phosphatase measurement (enzymatic activity/volume) 234 40 - 150 08/30/2017 [facility] Serum or plasma protein measurement (mass/volume) Serum or plasma protein measurement (mass/volume) 7.4 6.5 - 8.1 08/30/2017 [facility] Serum or plasma total bilirubin measurement (mass/volume) Serum or plasma total bilirubin measurement (mass/volume) 0.5 0.2 - 1.2 08/30/2017 [facility] Red Cell Distribution Width 16.5 11.7 - 14.4 08/30/2017 [facility] IM GRANULOCYTES % 0.4 0.0 - 1.0 08/30/2017 [facility] Absolute Immature Granulocyte (auto 0.02 0 - 0.1 08/30/2017 [facility] Aspartate Amino Transf (AST/SGOT) 14 5 - 34 08/30/2017 [facility] Lactic Acid Level 6.9 4.5 - 19.8 08/29/2017 [facility] Blood culture NO GROWTH AFTER 5 DAYS, FINAL REPORT 08/29/2017 [facility] Automated urine sediment leukocyte count by microscopy (number/high power field) Automated urine sediment leukocyte count by microscopy (number/high power field) >50 0 - 5 08/29/2017 [facility] Bacteria detection in urine sediment by light microscopy Bacteria detection in urine sediment by light microscopy FEW NONE 08/29/2017 [facility] Blood culture Blood culture NO GROWTH AFTER 72 HOURS 08/29/2017 [facility] Epithelial cells detection in urine sediment by light microscopy Epithelial cells detection in urine sediment by light microscopy RARE NONE 08/29/2017 [facility] Erythrocytes detection in urine sediment by light microscopy Erythrocytes detection in urine sediment by light microscopy >50 0 - 5 08/29/2017 [facility] Specific gravity of Urine by Test strip Specific gravity of Urine by Test strip 1.020 1.010 - 1.025 08/29/2017 [facility] Urine clarity Urine clarity CLOUDY CLEAR 08/29/2017 [facility] Urine color determination Urine color determination RED YELLOW 08/29/2017 [facility] Urine erythrocytes detection Urine erythrocytes detection 3+ NEGATIVE 08/29/2017 [facility] Urine glucose detection Urine glucose detection NEGATIVE NEGATIVE 08/29/2017 [facility] Urine ketones detection by automated test strip Urine ketones detection by automated test strip NEGATIVE NEGATIVE 08/29/2017 [facility] Urine leukocyte esterase detection by dipstick Urine leukocyte esterase detection by dipstick 2+ NEGATIVE 08/29/2017 [facility] Urine nitrite detection Urine nitrite detection NEGATIVE NEGATIVE 08/29/2017 [facility] Urine pH measurement by automated test strip Urine pH measurement by automated test strip 6 5 - 7 08/29/2017 [facility] Urine protein measurement by test strip (mass/volume) Urine protein measurement by test strip (mass/volume) 3+ NEGATIVE 08/29/2017 [facility] Urine total bilirubin measurement (mass/volume) Urine total bilirubin measurement (mass/volume) 1+ NEGATIVE 08/29/2017 [facility] Urine urobilinogen measurement by test strip (mass/volume) Urine urobilinogen measurement by test strip (mass/volume) 0.2 0.2 - 1 08/29/2017 [facility] Lactic Acid Level 6.9 4.5 - 19.8 08/29/2017 [facility] Serum or plasma magnesium measurement (mass/volume) Serum or plasma magnesium measurement (mass/volume) 1.3 1.3 - 2.1 01/25/2017 [facility] Bacterial urine culture Urine Culture [facility] Pathology Reports No Data Provided for This Section Diagnostic Reports Report Value Date Source Shoulder w contrast MRI EXAMINATION: MR right [...] evidence of labral or cartilaginous pathology. 07/23/2017 [facility] Inj Arthrogram Shoulder Unilat DX EXAM: Inj [...] the right shoulder for MR arthrogram. 07/23/2017 [facility] Consultation Notes No Data Provided for This Section Discharge Summaries No Data Provided for This Section History and Physicals No Data Provided for This Section Vital Signs Vital Sign Value Date Comments Source BMI Calculated 22.31 12/01/2017 [facility] Weight 64.602 12/01/2017 [facility] Height 170.18 cm 12/01/2017 [facility] Systolic (mm Hg) 108 12/01/2017 [facility] Diastolic (mm Hg) 76 12/01/2017 [facility] Heart Rate 64 12/01/2017 [facility] Encounters Location Location Details Encounter Type Encounter Number Reason For Visit Attending Provider ADM Date DC Date Status Source Discharged Inpatient [id number] ABHIJIT LLOYD MD 01/25[facility]2017 [facility] Outpatient [id number] Kenzie Partidaon 06/02/2017 06/02/2017 [facility] Outpatient [facility] [id number] Joaquín Ha 07/23/2017 07/24/2017 [facility] Discharged Inpatient [id number] ABHIJIT LLOYD MD 08/29/2017 09/01/2017 [facility] Phone Message [id number] 11/30/2017 12/02/2017 [facility] [id number] [facility] 12/01/2017 [facility] Outpatient [id number] [facility] 12/01/2017 12/02/2017 [facility] Admitted Inpatient [id number] ABHIJIT LLOYD MD 05/04/2018 [facility] Procedures Procedure Code Date Perfomer Comments Source CT of abdomen and pelvis without contrast [id number] 05/03/2018 [facility] X-ray of chest, single view [id number] 05/03/2018 [facility] Hernia repair<sup>1</sup> [id number] 1980 & 1988 [facility] LASIK [id number] [facility] Provision of collar<sup>2</sup> [id number] collar bone fracture [facility] Assessment and Plan No Data Provided for This Section Plan of Care Plan of Care Date Source Discharge Date 05/07/18 5:46pm Disposition HOME, SELF-CARE Instructions/Education Provided Urinary Tract Infection - Men Prescriptions See Medication Section Additional Instructions/Education Diet as tolerated Follow up with your PCP Follow up with your Urologist in 1 week Return to ER if any pain or discomfort, temperature increase or decrease. 05/07/2018 [facility] Discharge Date 09/01/17 12:03pm Disposition HOME, SELF-CARE Instructions/Education Provided Diabetes and Diet Urinary Tract Infection - Men Prescriptions See Medication Section Referrals ABHIJIT LLOYD MD (Internal Medicine) Entered Date: 09/01/2017 10:06am Address: [address] [place] [id number] Note: Follow up in 1 week. Call office to make appointment. Additional Instructions/Education follow up with in 1 week. Call office to make an appointment. 09/01/2017 [facility] Social History Social History Date Source Social History Problem Response Recorded Date/Time Onset Date Status Hx Psychiatric Problems No 01/25/2017 3:44am Not Applicable Not Applicable Hx Eating Disorder No 01/25/2017 3:44am Not Applicable Not Applicable Hx Substance Use Disorder No 01/25/2017 3:44am Not Applicable Not Applicable Hx Depression No 01/25/2017 3:44am Not Applicable Not Applicable Hx Alcohol Use No 01/25/2017 3:44am Not Applicable Not Applicable Hx Substance Use Treatment No 01/25/2017 3:44am Not Applicable Not Applicable Hx Physical Abuse No 01/25/2017 3:44am Not Applicable Not Applicable Smoking Status Start Date Stop Date Never Smoker 05/07/2018 [facility] Social History TypeResponse Substance Abuse Use: None. Recreational Drug Route: Oral. Employment/School Status: Employed. Alcohol Current, Type Beer. Frequency: 3-5 times per week. Smoking Status Never smoker; Exposure to Tobacco Smoke None; Cigarette Smoking Last 365 Days No; Reg Smoking Cessation Counseling Yes entered on: 12/01/17 12/01/2017 [facility] No data available for this section [facility]/24[facility] No data available for this section 06/02/2017 [facility] Family History No Data Provided for This Section Advance Directives Order Name Results Value Date Source Advance Directives Advance Directives Directive Response Recorded Date/Time Does the patient have an advance directive? No 05/04/18 10:00pm If yes, is advance directive on file with [facility]? Yes 05/04/18 10:00pm If not on file with [facility] will patient provide a copy? Yes 05/04/18 10:00pm Do you have a Directive to Physician? Yes 05/03/18 3:58pm Do you have a Medical Power of Infant Teacher? Yes 05/03/18 3:58pm Do you have an out of hospital Do Not Resuscitate Order? Yes 05/03/18 3:58pm Do you have any special needs we should be aware of? Yes 05/03/18 3:58pm Do you have a support person here with you today? Yes 05/03/18 3:58pm Did patient receive Notice of Privacy Practices? Yes 05/03/18 3:58pm Did patient receive patient rights and responsibilities? Yes 05/03/18 3:58pm 05/07/2018 [facility] Advance Directives Advance Directives Directive Response Recorded Date/Time Does the patient have an advance directive? Yes 08/29/17 9:42am If yes, is advance directive on file with [facility]? Yes 08/29/17 9:42am If not on file with [facility] will patient provide a copy? No 08/29/17 9:42am Do you have a Directive to Physician? No 08/29/17 12:49am Do you have a Medical Power of Infant Teacher? No 08/29/17 12:49am Do you have an out of hospital Do Not Resuscitate Order? No 08/29/17 12:49am Do you have any special needs we should be aware of? No 08/29/17 12:49am Do you have a support person here with you today? Yes 08/29/17 12:49am Did patient receive Notice of Privacy Practices? Yes 08/29/17 12:49am Did patient receive patient rights and responsibilities? Yes 08/29/17 12:49am 09/01/2017 [facility] Functional Status No Data Provided for This Section
[2018-10-17 01:17] LABS: BASOPHILS % 0.4 % (0.0-1.0); EOSINOPHILS # (AUTO) 0.1 (0.0-0.4); EOSINOPHILS % 2.4 % (0.0-6.0); HEMATOCRIT 27.3 % (38.2-49.6); LYMPHOCYTES # (AUTO) 1.7 (1.0-3.2); LYMPHOCYTES % 31.4 % (18.0-39.1); MEAN CORPUSCULAR HEMOGLOBIN 27.6 pg (28-32); MEAN CORPUSCULAR VOLUME 83.7 fL (81-99); MONOCYTES # (AUTO) 0.4 (0.2-0.8); MONOCYTES % 7.9 % (4.4-11.3); NEUTROPHILS # (AUTO) 3.1 (2.1-6.9); NEUTROPHILS % 57.5 % (38.7-80.0); PLATELET COUNT 128 x10e3/uL (140-360); RED BLOOD COUNT 3.26 x10e6/uL (4.3-5.7); RED CELL DISTRIBUTION WIDTH 14.8 % (11.7-14.4)
[2018-10-17 01:58] LABS: ALBUMIN 3.3 g/dL (3.5-5.0); ALBUMIN/GLOBULIN RATIO 0.7 (0.8-2.0); CALCIUM 7.1 mg/dL (8.4-10.2); CREATININE, SERUM 5.16 mg/dL (0.72-1.25)
[2018-10-17] MEDS ORDERED: SODIUM CHLORIDE 0.9% 1000ML 1,000 ML ONE (02:12)
[2018-10-17] MEDS ORDERED: SODIUM CHLORIDE 0.9% 1000ML 1,000 ML IV ONE (02:15)
[2018-10-17 02:25] LABS: BILIRUBIN,URINE NEGATIVE (NEGATIVE); CLARITY,URINE CLOUDY (CLEAR); COLOR,URINE YELLOW (YELLOW); KETONES,URINE NEGATIVE (NEGATIVE); LEUKOCYTE ESTERASE ,URINE 2+ (NEGATIVE); NITRITE,URINE NEGATIVE (NEGATIVE); PROTEIN,URINE DIPSTICK 3+ (NEGATIVE); URINE UROBILINOGEN 0.2 mg/dL (0.2 - 1)
[2018-10-17 02:26] LABS: BACTERIA,URINE MANY /HPF; EPITHELIAL CELLS,URINE MODERATE /LPF; RBC,URINE >50 /HPF (0-5); WBC,URINE (MAN) >50 /HPF (0-5)
--- OUTSIDE RECORDS SUMMARY | 2018-10-17 02:43 | XMS REPORT | Clinical Summary ---
Author Author [facility] Organization [facility] Address Unknown Phone Unavailable Care Team Providers Care Applications Sales Representative Name Role Phone Donald Potts MD PCP [...] / Serial / Lot Implanted Type Area [facility] 11/22/2025 [id number] / / [id number] Screw Bone Canc Dome 6.5x25mm Ltxf Hip Joint Right: Knee DEPUY [place] - [id number] Implants ORTHO Implanted: Qty: 1 on 03/27/2016 by Silke Chowdary MD at [facility] 01/22/2026 [id number] / / [id number] Screw Bone Canc Dome 6.5x25mm Ltxf Hip Joint Right: Knee DEPUY [place] - [id number] Implants ORTHO Implanted: Qty: 1 on 03/27/2016 by Silke Chowdary MD at [facility] 10/23/2026 [id number] / / [id number] [place] Stem [id number] Fluted - IPM Right: Knee DEPUY [id number] IMPLANT ORTHOPAEDI Implanted: Qty: 1 on 04/16/2017 by [employer] Silke Chowdary MD at [facility] 12/23/2026 [id number] / / [id number] [place] Fem Slv Ful Por 40mm - IPM Right: Knee DEPUY [id number] IMPLANT ORTHOPAEDI Implanted: Qty: 1 on 04/16/2017 by [employer] Silke Chowdary MD at [facility] 11/22/2025 [id number] / / [id number] Srom [facility] Dist Aug Xs/S/ 10mm - IPM Right: Knee DEPUY [id number] IMPLANT ORTHOPAEDI Implanted: Qty: 1 on 04/16/2017 by [employer] Silke Chowdary MD at [facility] 11/22/2024 [id number] / / [id number] Srom [facility] Dist Aug Xs/S/ 10mm - IPM Right: Knee DEPUY [id number] IMPLANT ORTHOPAEDI Implanted: Qty: 1 on 04/16/2017 by [employer] Silke Chowdary MD at [facility] 10/23/2021 [id number] / / [id number] [facility] Carefe W/Pin Med Rt 71x66 - IPM Right: Knee DEPUY [id number] IMPLANT ORTHOPAEDI Implanted: Qty: 1 on 04/16/2017 by [employer] Silke Chowdary MD at [facility] 10/24/2019 [id number] / / [id number] Lps Univ Tib Hin Ins Med 31mm - IPM Right: Knee DEPUY [id number] IMPLANT ORTHOPAEDI Implanted: Qty: 1 on 04/16/2017 by [employer] Silke Chowdary MD at [facility] 01/22/2026 [id number] / / [id number] Augment Fml P.F.C Sigma Distl Rt Sz Knee Joint Right: Knee DEPUY 5 4mm - [id number] Implants ORTHO Implanted: Qty: 1 on 03/27/2016 by Silke Chowdary MD at [facility] 01/22/2026 [id number] / / [id number] Stem Tib Cementd 46m22zx P.F.C Knee Joint Right: Knee DEPUY Sigma - [id number] Implants ORTHO Implanted: Qty: 1 on 03/27/2016 by Silke Chowdary MD at [facility] 10/22/2020 [id number] / / [id number] Augment Fml P.F.C Sigma Distl Rt Sz Knee Joint Right: Knee DEPUY 5 8mm - [id number] Implants ORTHO Implanted: Qty: 1 on 03/27/2016 by Silke Chowdary MD at [facility] 09/22/2025 [id number] / / [id number] Stem Tib Cementd [id number] Knee Joint Right: Knee DEPUY [employer].Sigma - [id number] Implants ORTHO Implanted: Qty: 1 on 03/27/2016 by Silke Chowdary MD at [facility] 12/23/2020 [id number] / / [id number] Patella Prosths Oval / Dome 3-Post Knee Joint Right: Knee DEPUY 38mm Std Uhmwpe - [id number] Implants ORTHO Implanted: Qty: 1 on 03/27/2016 by Silke Chowdary MD at [facility] 05/23/2020 [id number] / / [id number] Insert Tib Stblzd Rp Sz 5 25mm Knee Joint Right: Knee DEPUY P.F.C Sigma - [id number] Implants ORTHO Implanted: Qty: 1 on 03/27/2016 by Silke Chowdary MD at [facility] 02/22/2026 [id number] / / [id number] Tray Rev Mbt 5x53.1x80.6x61.8mm - Knee Joint Right: Knee DEPUY [id number] Implants ORTHO Implanted: Qty: 1 on 03/27/2016 by Silke Chowdary MD at [facility] 09/22/2025 [id number] / / [id number] Component Fml Rt N-Por Tc3 Sz 5 Knee Joint Right: Knee DEPUY [id number] P.F.C Sigma - [id number] Implants ORTHO Implanted: Qty: 1 on 03/27/2016 by Silke Chowdary MD at [facility] 01/22/2026 [id number] / / [id number] Adapter Fml P.F.C Sigma 5deg - Knee Joint Right: Knee DEPUY [id number] Implants ORTHO-KNEE Implanted: Qty: 1 on 03/27/2016 by Silke Gutierres MD at [facility] 11/22/2025 [id number] / / [id number] Adapter Fml P.F.C Sigma Ofst [place] Knee Joint Right: Knee DEPUY +2/-2mm - [id number] Implants ORTHO-KNEE Implanted: Qty: 1 on 03/27/2016 by Silke Gutierres MD at [facility] 01/22/2017 [id number] / / [id number] Cement Bone Hiviscocty 40gr Surgical Right: Knee DEPUY Smartset - [id number] Bone ORTHO Implanted: Qty: 2 on 03/27/2016 by Silke Monge MD at [facility] 12/23/2016 [id number] / / [id number] Cement Bone Hiviscocty 40gr Surgical Right: Knee DEPUY Smartset - [id number] Bone ORTHO Implanted: Qty: 1 on 03/27/2016 by Silke Monge MD at [facility] 10/23/2018 [id number] / / [id number] Cement Bone Hiviscocty 40gr Surgical Right: Knee DEPUY Smartset - [id number] Bone ORTHO Implanted: 04/16/2017 at [facility] (Quantity not on file) 12/24/2020 [id number] / / [id number] Cement Bone Prep Univl Insrtr Sculp Surgical Right: Knee SANDOR Fml [place] Suct Sm - [id number] Implants; INSTRUMENT Implanted: Qty: 1 on 03/27/2016 by [employer]; S Silke Chowdary MD at [facility] Extenders; Surgical Wires [id number] / / Immobilizer Knee Tripnl Dlx W/ Patl Surgical N/A: N/A DEROYAL Strp Univl Canvas 24in - [id number] Implants; INDUSTRIES Implanted: 04/16/2017 at [facility] Expanders; HOSPITAL (Quantity not on file) Extenders; Surgical Wires Results Not on fileafter 10/16/2017 Insurance Type Payer Benefit Subscriber ID Effective Phone Address Plan / Dates Group Workers Comp WORKERS COMP PARADIGM xxxxxxxxxxxxxxx 2015- HEALTH xxxxx Present ARNAV Guarantor Name Account Relation to Date of Phone Billing Address Type Patient [id number] Workers Employer 02/23/1900 [id number] [place] Comp (Home) [address] [address] Sukh Lozano Personal/F Self 1980 [id number] [place] amily (Home) [address] [address] Sukh Lozano Third Self 1980 [id number] [place] [employer] (Home) [place] [address] Advance Directives For more information, please contact: [phone] 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
--- OUTSIDE RECORDS SUMMARY | 2018-10-17 02:43 | XMS REPORT | Continuity of Care Document ---
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 [place] [place] Dehydration Active 08/09/2015 Problem 05/07/[address] [facility] [place] [place] Diarrhea Active 08/09/2015 Problem 05/07/[address] [facility] [place] [place] GI bleed Active 08/09/2015 Problem 05/07/[address] [facility] [place] [place] Hyperglycemia Active 08/09/2015 Problem 05/07/[address] [facility] [place] [place] Renal insufficiency Active 04/15/2015 Problem 09/01/[address] [facility] [place] [place] Sepsis Active 04/15/2015 Problem 05/07/[address] [facility] [place] [place] Renal insufficiency Active 04/15/2015 Problem 05/07/[address] [facility] [place] [place] Bacteremia Active 03/30/2015 Problem 05/07/[address] [facility] [place] [place] Prostatitis Active 03/30/2015 Problem 05/07/[address] [facility] [place] [place] Urinary tract infection Active 03/30/2015 Problem 05/07/[address] [facility] [place] [place] Pyelonephritis Active 02/10/2015 Problem 05/07/[address] [facility] [place] [place] Acute renal insufficiency Active Problem 05/07/[address] [facility] [place] [place] Bladder wall thickening Active Problem 05/07/[address] [facility] [place] [place] Fever Active Problem 05/07/[address] [facility] [place] [place] Hydroureteronephrosis Active Problem 05/07/[address] [facility] [place] [place] Hypomagnesemia Active Problem 05/07/[address] [facility] [place] [place] Indwelling catheter present on admission Active Problem 05/07/[address] [facility] [place] [place] Obstructive uropathy Active Problem 05/07/[address] [facility] [place] [place] Displacement of ureteral stent Active Problem 09/01/[address] [facility] [place] [place] Displacement of ureteral stent Active Problem 05/07/[address] [facility] [place] [place] Vomiting Active Problem 05/07/[address] [facility] [place] [place] Medications Medication Details Route Status Patient Instructions Ordering Provider Order Date Source Amlodipine Besylate 10 Mg Tablet, 10 Mg Oral Daily Active 05/05/[address] [facility] [place] [place] Metoprolol Tartrate 25 Mg Tablet, 25 Mg Oral Twice A Day Active 05/05/[address] [facility] [place] [place] Ciprofloxacin Hcl (Cipro) 500 Mg Tablet, 500 Mg Oral Daily Active 08/29/[address] [facility] [place] [place] Doxycycline Hyclate 100 Mg Capsule, 100 Mg Oral Twice A Day Active 08/29/[address] [facility] [place] [place] Fluconazole 100 Mg Tablet, 200 Mg Oral Daily Active 08/29/[address] [facility] [place] [place] Insulin Detemir (Levemir) 100 Unit/1 Ml Vial, 20 Units Sub-Q Bedtime Active 08/29/[address] [facility] [place] [place] Oxybutynin Chloride (Oxybutynin Chloride Er) 5 Mg Tab.er.24, 15 Mg Oral Daily Active 08/29/[address] [facility] [place] [place] Doxycycline Hyclate 100 Mg Capsule, 100 Mg Oral Twice A Day Active 08/29/[address] [facility] [place] [place] Fluconazole 100 Mg Tablet, 200 Mg Oral Daily Active 08/29/[address] [facility] [place] [place] Insulin Detemir (Levemir) 100 Unit/1 Ml Vial, 20 Units Sub-Q Bedtime Active 08/29/[address] [facility] [place] [place] Oxybutynin Chloride (Oxybutynin Chloride Er) 5 Mg Tab.er.24, 15 Mg Oral Daily Active 08/29/[address] [facility] [place] [place] Cephalexin 500 Mg Capsule, 500 Mg Oral Four Times Daily Active 06/04/[address] [facility] [place] [place] Hydrocodone Bit/Acetaminophen (Duke 5-325 Tablet) 1 Each Tablet, 1 Tab Oral Every 6 Hours as needed for Pain Active 06/04/[address] [facility] [place] [place] Promethazine Hcl 25 Mg Tablet, 25 Mg Oral Every 4 Hours Active 06/04/[address] [facility] [place] [place] Tramadol Hcl (Ultram) 50 Mg Tablet, 1-2 Tab Oral Every 6 Hours as needed for Pain Active 06/04/[address] [facility] [place] [place] Cephalexin 500 Mg Capsule, 500 Mg Oral Four Times Daily Active 06/04/[address] [facility] [place] [place] Hydrocodone Bit/Acetaminophen (Duke 5-325 Tablet) 1 Each Tablet, 1 Tab Oral Every 6 Hours as needed for Pain Active 06/04/[address] [facility] [place] [place] Promethazine Hcl 25 Mg Tablet, 25 Mg Oral Every 4 Hours Active 06/04/[address] [facility] [place] [place] Fluticasone Propionate 16 Gm [place].susp, 1 Twice A Day Active 08/08/[address] [facility] [place] [place] Meropenem (Merrem) 500 Mg Inj, 500 Mg Intraven Every 8 Hours Active 08/08/[address] [facility] [place] [place] Metoclopramide Hcl (Reglan) 10 Mg Tablet, 10 Mg Before Meals And At Bedtime Active 08/08/[address] [facility] [place] [place] Pantoprazole Sodium (Protonix) 40 Mg Tablet.dr, 40 Mg Oral Every Morning Active 08/08/[address] [facility] [place] [place] Fluticasone Propionate 16 Gm [place].susp, 1 Twice A Day Active 08/08/[address] [facility] [place] [place] Metoclopramide Hcl (Reglan) 10 Mg Tablet, 10 Mg Before Meals And At Bedtime Active 08/08/[address] [facility] [place] [place] Amoxicillin/Potassium Clav (Augmentin 500-125 Tablet) 1 Each Tablet, 500 Mg Oral Twice A Day Active 04/11/[address] [facility] [place] [place] Fluconazole (Diflucan) 100 Mg Tablet, Mg Oral Daily Active 04/11/[address] [facility] [place] [place] Amoxicillin/Potassium Clav (Augmentin 500-125 Tablet) 1 Each Tablet, 500 Mg Oral Twice A Day Active 04/11/[address] [facility] [place] [place] Fluconazole (Diflucan) 100 Mg Tablet, Mg Oral Daily Active 04/11/[address] [facility] [place] [place] Tamsulosin Hcl (Flomax*) 0.4 Mg Cap, 0.4 Mg Oral Bedtime Active 03/30/[address] [facility] [place] [place] Tamsulosin Hcl (Flomax*) 0.4 Mg Cap, 0.4 Mg Oral Bedtime Active 03/30/[address] [facility] [place] [place] Acetaminophen With Codeine (Tylenol With Codeine #3 Tablet) 1 Each Tablet, 300 Mg Oral Every 6 Hours as needed for Pain Active 03/08/[address] [facility] [place] [place] Senna Fruit/Conc/Doc Sod/Bisa (Senna-S Tablet) 1 Ea Tab, 1 Each Oral Bedtime Active 03/08/[address] [facility] [place] [place] Acetaminophen With Codeine (Tylenol With Codeine #3 Tablet) 1 Each Tablet, 300 Mg Oral Every 6 Hours as needed for Pain Active 03/08/[address] [facility] [place] [place] Senna Fruit/Conc/Doc Sod/Bisa (Senna-S Tablet) 1 Ea Tab, 1 Each Oral Bedtime Active 03/08/[address] [facility] [place] [place] Hydrocodone Bit/Acetaminophen (Duke 5-325 Tablet) 1 Each Tablet, Tab Oral Daily Active 02/22/[address] [facility] [place] [place] Insulin Npl/Insulin Lispro (Humalog Mix 50-50 Kwikpen) 100 Unit/1 Ml Insuln.pen, Sub-Q 15 Units Every A.m. Active 02/22/[address] [facility] [place] [place] Lisinopril 10 Mg Tablet, Tab Oral Daily Active 02/22/[address] [facility] [place] [place] Amoxicillin/Potassium Clav (Augmentin 875-125 Tablet) 1 Each Tablet, Tab Oral Twice A Day Active 02/11/[address] [facility] [place] [place] Cephalexin Monohydrate (Keflex) 500 Mg Capsule, 500 Mg Oral Three Times A Day Active 02/11/[address] [facility] [place] [place] Docusate Sodium (Colace) 100 Mg Cap, Cap Oral Daily Active 02/11/[address] [facility] [place] [place] Insulin Glargine,Hum.rec.anlog (Lantus) 100 Unit/1 Ml Cartridge, Sub-Q 45 Units At Bedtime Active 02/11/[address] [facility] [place] [place] Metformin Hcl 500 Mg Tablet, 500 Mg Oral Twice Daily Active 02/11/[address] [facility] [place] [place] Amlodipine Besylate 10 Mg Tablet Daily Active [facility] [place] [place] Gabapentin 300 Mg Capsule Three Times A Day Active [facility] [place] [place] Insulin Aspart (Novolog) 100 Unit/1 Ml Cartridge Before Meals Active [facility] [place] [place] Metoprolol Tartrate 25 Mg Tablet Twice A Day Active [facility] [place] [place] Gabapentin 300 Mg Capsule Twice A Day Active [facility] [place] [place] Insulin Aspart (Novolog) 100 Unit/1 Ml Cartridge Before Meals Active [facility] [place] [place] Nifedipine (Nifedipine Er) 30 Mg Tab.er.[address] [facility] [place] [place] Vyzulta Daily Active [facility] [place] [place] Allergies, Adverse Reactions, Alerts Substance Category Reaction Severity Reaction type Status Date Reported Comments Source PO CONTRAST Mild Allergy to Substance Active 07/06/[address] [facility] [place] [place] Iodinated Contrast- Oral and IV Dye Unknown Allergy to Substance Active 05/03/[address] [facility] [place] [place] No Known Medication Allergies Assertion Drug allergy [employer] [employer] Immunizations No Data Provided for This Section Results Order Name Results Value Reference Range Date Interpretation Comments Source Capillary blood glucose measurement by glucometer (mass/volume) 72 70 - 120 05/07/[address] [facility] [place] [place] Serum or plasma sodium measurement (moles/volume) 136 136 - 145 05/06/[address] [facility] [place] [place] Serum or plasma potassium measurement (moles/volume) 5.2 3.5 - 5.1 05/06/[address] [facility] [place] [place] Serum or plasma chloride measurement (moles/volume) 111 98 - 107 05/06/[address] [facility] [place] [place] Serum or plasma carbon dioxide, total measurement (moles/volume) 21 22 - 29 05/06/[address] [facility] [place] [place] Serum or plasma anion gap 9.2 8 - 16 05/06/[address] [facility] [place] [place] Serum or plasma urea nitrogen measurement (mass/volume) 26 7 - 26 05/06/[address] [facility] [place] [place] Serum or plasma creatinine measurement (mass/volume) 2.22 0.72 - 1.25 05/06/[address] [facility] [place] [place] Serum or plasma urea nitrogen/creatinine mass ratio 12 6 - 25 05/06/[address] [facility] [place] [place] Estimated glomerular filtration rate (GFR) determination 33 60 05/06/[address] [facility] [place] [place] Glucose measurement 144 74 - 118 05/06/[address] [facility] [place] [place] Serum or plasma calcium measurement (mass/volume) 6.5 8.4 - 10.2 05/06/[address] [facility] [place] [place] Blood leukocytes automated count (number/volume) 3.55 4.8 - 10.8 05/06/[address] [facility] [place] [place] Blood erythrocytes automated count (number/volume) 3.25 4.3 - 5.7 05/06/[address] [facility] [place] [place] Blood hemoglobin measurement (moles/volume) 8.6 14.0 - 18.0 05/06/[address] [facility] [place] [place] Automated blood hematocrit (volume fraction) 27.2 38.2 - 49.6 05/06/[address] [facility] [place] [place] Automated erythrocyte mean corpuscular volume 83.7 81 - 99 05/06/[address] [facility] [place] [place] Automated erythrocyte mean corpuscular hemoglobin (mass per erythrocyte) 26.5 28 - 32 05/06/[address] [facility] [place] [place] Automated erythrocyte mean corpuscular hemoglobin concentration measurement (mass/volume) 31.6 31 - 35 05/06/[address] [facility] [place] [place] RDW BldCo-Rto 14.6 11.7 - 14.4 05/06/[address] [facility] [place] [place] Automated blood platelet count (count/volume) 113 140 - 360 05/06/[address] [facility] [place] [place] Automated blood segmented neutrophil count as percentage of total leukocytes 59.6 38.7 - 80.0 05/06/[address] [facility] [place] [place] Automated blood lymphocyte count as percentage ot total leukocytes 24.8 18.0 - 39.1 05/06/[address] [facility] [place] [place] Automated blood monocyte count as percentage of total leukocytes 8.5 4.4 - 11.3 05/06/[address] [facility] [place] [place] Automated blood eosinophil count as percentage of total leukocytes 5.1 0.0 - 6.0 05/06/[address] [facility] [place] [place] Automated blood basophil count as percentage of total leukocytes 0.6 0.0 - 1.0 05/06/[address] [facility] [place] [place] IM GRANULOCYTES % 1.4 0.0 - 1.0 05/06/[address] [facility] [place] [place] Automated blood neutrophil count 2.1 2.1 - 6.9 05/06/[address] [facility] [place] [place] Blood lymphocytes count (number/volume) 0.9 1.0 - 3.2 05/06/[address] [facility] [place] [place] Blood monocytes automated count (number/volume) 0.3 0.2 - 0.8 05/06/[address] [facility] [place] [place] Automated blood eosinophil count 0.2 0.0 - 0.4 05/06/[address] [facility] [place] [place] Automated blood basophil count (count/volume) 0.0 0.0 - 0.1 05/06/[address] [facility] [place] [place] Absolute Immature Granulocyte (auto 0.05 0 - 0.1 05/06/[address] [facility] [place] [place] Serum or plasma total bilirubin measurement (mass/volume) 0.2 0.2 - 1.2 05/05/[address] [facility] [place] [place] Aspartate Amino Transf (AST/SGOT) 31 5 - 34 05/05/[address] [facility] [place] [place] Serum or plasma alanine aminotransferase measurement (enzymatic activity/volume) 44 0 - 55 05/05/[address] [facility] [place] [place] Serum or plasma protein measurement (mass/volume) 6.6 6.5 - 8.1 05/05/[address] [facility] [place] [place] Serum or plasma albumin measurement (mass/volume) 2.4 3.5 - 5.0 05/05/[address] [facility] [place] [place] Plasma globulin measurement (mass/volume) 4.2 2.3 - 3.5 05/05/[address] [facility] [place] [place] Serum or plasma albumin/globulin mass ratio 0.6 0.8 - 2.0 05/05/[address] [facility] [place] [place] Serum or plasma alkaline phosphatase measurement (enzymatic activity/volume) 272 40 - 150 05/05/[address] [facility] [place] [place] Urine color determination YELLOW YELLOW 05/03/[address] [facility] [place] [place] Urine clarity CLOUDY CLEAR 05/03/[address] [facility] [place] [place] Specific gravity of Urine by Test strip 1.025 1.010 - 1.025 05/03/[address] [facility] [place] [place] Urine pH measurement by automated test strip 6 5 - 7 05/03/[address] [facility] [place] [place] Urine leukocyte esterase detection by dipstick 2+ NEGATIVE 05/03/[address] [facility] [place] [place] Urine nitrite detection POSITIVE NEGATIVE 05/03/[address] [facility] [place] [place] Urine protein measurement by test strip (mass/volume) 3+ NEGATIVE 05/03/[address] [facility] [place] [place] Urine glucose detection 1+ NEGATIVE 05/03/[address] [facility] [place] [place] Urine ketones detection by automated test strip NEGATIVE NEGATIVE 05/03/[address] [facility] [place] [place] Urine urobilinogen measurement by test strip (mass/volume) 0.2 0.2 - 1 05/03/[address] [facility] [place] [place] Urine total bilirubin measurement (mass/volume) NEGATIVE NEGATIVE 05/03/[address] [facility] [place] [place] Urine erythrocytes detection 4+ NEGATIVE 05/03/[address] [facility] [place] [place] Automated urine sediment leukocyte count by microscopy (number/high power field) >50 0 - 5 05/03/[address] [facility] [place] [place] Erythrocytes detection in urine sediment by light microscopy 21-50 0 - 5 05/03/[address] [facility] [place] [place] Bacteria detection in urine sediment by light microscopy MANY NONE 05/03/[address] [facility] [place] [place] Epithelial cells detection in urine sediment by light microscopy RARE NONE 05/03/[address] [facility] [place] [place] Influenza virus A and B antigen identification by immunofluorescence NEGATIVE NEGATIVE 05/03/[address] [facility] [place] [place] Streptococcus pyogenes antigen detection in throat NEGATIVE NEGATIVE 05/03/[address] [facility] [place] [place] Serum or plasma amylase measurement (enzymatic activity/volume) 62 25 - 125 05/03/[address] [facility] [place] [place] Serum or plasma lipase measurement (enzymatic activity/volume) 14 8 - 78 05/03/[address] [facility] [place] [place] Capillary blood glucose measurement by glucometer (mass/volume) Capillary blood glucose measurement by glucometer (mass/volume) 190 70 - 120 09/01/[address] [facility] [place] [place] Estimated glomerular filtration rate (GFR) determination Estimated glomerular filtration rate (GFR) determination 43 60 08/31/[address] [facility] [place] [place] Glucose measurement Glucose measurement 165 74 - 118 08/31/[address] [facility] [place] [place] Serum or plasma anion gap Serum or plasma anion gap 11.7 8 - 16 08/31/[address] [facility] [place] [place] Serum or plasma calcium measurement (mass/volume) Serum or plasma calcium measurement (mass/volume) 8.2 8.4 - 10.2 08/31/[address] [facility] [place] [place] Serum or plasma carbon dioxide, total measurement (moles/volume) Serum or plasma carbon dioxide, total measurement (moles/volume) 20 22 - 29 08/31/[address] [facility] [place] [place] Serum or plasma chloride measurement (moles/volume) Serum or plasma chloride measurement (moles/volume) 109 98 - 107 08/31/[address] [facility] [place] [place] Serum or plasma creatinine measurement (mass/volume) Serum or plasma creatinine measurement (mass/volume) 1.79 0.72 - 1.25 08/31/[address] [facility] [place] [place] Serum or plasma potassium measurement (moles/volume) Serum or plasma potassium measurement (moles/volume) 4.7 3.5 - 5.1 08/31/[address] [facility] [place] [place] Serum or plasma sodium measurement (moles/volume) Serum or plasma sodium measurement (moles/volume) 136 136 - 145 08/31/[address] [facility] [place] [place] Serum or plasma urea nitrogen measurement (mass/volume) Serum or plasma urea nitrogen measurement (mass/volume) 20 7 - 26 08/31/[address] [facility] [place] [place] Serum or plasma urea nitrogen/creatinine mass ratio Serum or plasma urea nitrogen/creatinine mass ratio 11 6 - 25 08/31/[address] [facility] [place] [place] Automated blood basophil count (count/volume) Automated blood basophil count (count/volume) 0.0 0.0 - 0.1 08/30/[address] [facility] [place] [place] Automated blood basophil count as percentage of total leukocytes Automated blood basophil count as percentage of total leukocytes 0.2 0.0 - 1.0 08/30/[address] [facility] [place] [place] Automated blood eosinophil count Automated blood eosinophil count 0.1 0.0 - 0.4 08/30/[address] [facility] [place] [place] Automated blood eosinophil count as percentage of total leukocytes Automated blood eosinophil count as percentage of total leukocytes 2.1 0.0 - 6.0 08/30/[address] [facility] [place] [place] Automated blood hematocrit (volume fraction) Automated blood hematocrit (volume fraction) 29.6 38.2 - 49.6 08/30/[address] [facility] [place] [place] Automated blood lymphocyte count as percentage ot total leukocytes Automated blood lymphocyte count as percentage ot total leukocytes 13.9 18.0 - 39.1 08/30/[address] [facility] [place] [place] Automated blood monocyte count as percentage of total leukocytes Automated blood monocyte count as percentage of total leukocytes 9.8 4.4 - 11.3 08/30/[address] [facility] [place] [place] Automated blood neutrophil count Automated blood neutrophil count 3.9 2.1 - 6.9 08/30/[address] [facility] [place] [place] Automated blood platelet count (count/volume) Automated blood platelet count (count/volume) 115 140 - 360 08/30/[address] [facility] [place] [place] Automated blood segmented neutrophil count as percentage of total leukocytes Automated blood segmented neutrophil count as percentage of total leukocytes 73.6 38.7 - 80.0 08/30/[address] [facility] [place] [place] Automated erythrocyte mean corpuscular hemoglobin (mass per erythrocyte) Automated erythrocyte mean corpuscular hemoglobin (mass per erythrocyte) 26.0 28 - 32 08/30/[address] [facility] [place] [place] Automated erythrocyte mean corpuscular hemoglobin concentration measurement (mass/volume) Automated erythrocyte mean corpuscular hemoglobin concentration measurement (mass/volume) 31.8 31 - 35 08/30/[address] [facility] [place] [place] Automated erythrocyte mean corpuscular volume Automated erythrocyte mean corpuscular volume 82.0 81 - 99 08/30/[address] [facility] [place] [place] Blood erythrocytes automated count (number/volume) Blood erythrocytes automated count (number/volume) 3.61 4.3 - 5.7 08/30/[address] [facility] [place] [place] Blood hemoglobin measurement (moles/volume) Blood hemoglobin measurement (moles/volume) 9.4 14.0 - 18.0 08/30/[address] [facility] [place] [place] Blood leukocytes automated count (number/volume) Blood leukocytes automated count (number/volume) 5.33 4.8 - 10.8 08/30/[address] [facility] [place] [place] Blood lymphocytes count (number/volume) Blood lymphocytes count (number/volume) 0.7 1.0 - 3.2 08/30/[address] [facility] [place] [place] Blood monocytes automated count (number/volume) Blood monocytes automated count (number/volume) 0.5 0.2 - 0.8 08/30/[address] [facility] [place] [place] Plasma globulin measurement (mass/volume) Plasma globulin measurement (mass/volume) 4.6 2.3 - 3.5 08/30/[address] [facility] [place] [place] Serum or plasma alanine aminotransferase measurement (enzymatic activity/volume) Serum or plasma alanine aminotransferase measurement (enzymatic activity/volume) 40 0 - 55 08/30/[address] [facility] [place] [place] Serum or plasma albumin measurement (mass/volume) Serum or plasma albumin measurement (mass/volume) 2.8 3.5 - 5.0 08/30/[address] [facility] [place] [place] Serum or plasma albumin/globulin mass ratio Serum or plasma albumin/globulin mass ratio 0.6 0.8 - 2.0 08/30/[address] [facility] [place] [place] Serum or plasma alkaline phosphatase measurement (enzymatic activity/volume) Serum or plasma alkaline phosphatase measurement (enzymatic activity/volume) 234 40 - 150 08/30/[address] [facility] [place] Serum or plasma protein measurement (mass/volume) Serum or plasma protein measurement (mass/volume) 7.4 6.5 - 8.1 08/30/[address] [facility] [place] Serum or plasma total bilirubin measurement (mass/volume) Serum or plasma total bilirubin measurement (mass/volume) 0.5 0.2 - 1.2 08/30/[address] [facility] [place] [place] Red Cell Distribution Width 16.5 11.7 - 14.4 08/30/[address] [facility] [place] [place] IM GRANULOCYTES % 0.4 0.0 - 1.0 08/30/[address] [facility] [place] [place] Absolute Immature Granulocyte (auto 0.02 0 - 0.1 08/30/[address] [facility] [place] Aspartate Amino Transf (AST/SGOT) 14 5 - 34 08/30/[address] [facility] [place] [place] Lactic Acid Level 6.9 4.5 - 19.8 08/29/[address] [facility] [place] Blood culture NO GROWTH AFTER 5 DAYS, FINAL REPORT 08/29/[address] [facility] [place] Automated urine sediment leukocyte count by microscopy (number/high power field) Automated urine sediment leukocyte count by microscopy (number/high power field) >50 0 - 5 08/29/[address] [facility] [place] Bacteria detection in urine sediment by light microscopy Bacteria detection in urine sediment by light microscopy FEW NONE 08/29/[address] [facility] [place] Blood culture Blood culture NO GROWTH AFTER 72 HOURS 08/29/[address] [facility] [place] [place] Epithelial cells detection in urine sediment by light microscopy Epithelial cells detection in urine sediment by light microscopy RARE NONE 08/29/[address] [facility] [place] Erythrocytes detection in urine sediment by light microscopy Erythrocytes detection in urine sediment by light microscopy >50 0 - 5 08/29/[address] [facility] [place] Specific gravity of Urine by Test strip Specific gravity of Urine by Test strip 1.020 1.010 - 1.025 08/29/[address] [facility] [place] Urine clarity Urine clarity CLOUDY CLEAR 08/29/[address] [facility] [place] Urine color determination Urine color determination RED YELLOW 08/29/[address] [facility] [place] Urine erythrocytes detection Urine erythrocytes detection 3+ NEGATIVE 08/29/[address] [facility] [place] Urine glucose detection Urine glucose detection NEGATIVE NEGATIVE 08/29/[address] [facility] [place] Urine ketones detection by automated test strip Urine ketones detection by automated test strip NEGATIVE NEGATIVE 08/29/[address] [facility] [place] Urine leukocyte esterase detection by dipstick Urine leukocyte esterase detection by dipstick 2+ NEGATIVE 08/29/[address] [facility] [place] Urine nitrite detection Urine nitrite detection NEGATIVE NEGATIVE 08/29/[address] [facility] [place] Urine pH measurement by automated test strip Urine pH measurement by automated test strip 6 5 - 7 08/29/[address] [facility] [place] Urine protein measurement by test strip (mass/volume) Urine protein measurement by test strip (mass/volume) 3+ NEGATIVE 08/29/[address] [facility] [place] Urine total bilirubin measurement (mass/volume) Urine total bilirubin measurement (mass/volume) 1+ NEGATIVE 08/29/[address] [facility] [place] Urine urobilinogen measurement by test strip (mass/volume) Urine urobilinogen measurement by test strip (mass/volume) 0.2 0.2 - 1 08/29/[address] [facility] [place] [place] Lactic Acid Level 6.9 4.5 - 19.8 08/29/[address] [facility] [place] [place] Serum or plasma magnesium measurement (mass/volume) Serum or plasma magnesium measurement (mass/volume) 1.3 1.3 - 2.1 01/25/[address] [facility] [place] Bacterial urine culture Urine Culture [facility] [place] [place] Pathology Reports No Data Provided for This [...] evidence of labral or cartilaginous pathology. 07/23/2017 [facility] Inj Arthrogram Shoulder Unilat DX EXAM: Inj [...] the right shoulder for MR arthrogram. 07/23/2017 [facility] Consultation Notes No Data Provided for This Section Discharge Summaries No Data Provided for This Section History and Physicals No Data Provided for This Section Vital Signs Vital Sign Value Date Comments Source BMI Calculated 22.31 12/01/2017 [facility] Weight 64.602 12/01/2017 [facility] Height 170.18 cm 12/01/2017 [facility] Systolic (mm Hg) 108 12/01/2017 [facility] Diastolic (mm Hg) 76 12/01/2017 [facility] Heart Rate 64 12/01/2017 [facility] Encounters Location Location Details Encounter Type Encounter Number Reason For Visit Attending Provider ADM Date DC Date Status Source Discharged Inpatient [id number] ABHIJIT LLOYD MD 01/25/2017 [facility]30[facility] Outpatient [id number] Kenzie Partidaon 06/02/2017 06/02/2017 [facility] Outpatient Imaging [facility] Di[facility] Services [id number] Joaquín Ha 07/23/2017 07/24/2017 [facility] Discharged Inpatient [id number] ABHIJIT LLOYD MD 08/29/2017 09/01/2017 [facility] Phone Message [id number] 11/30/2017 12/02/2017 [facility] [id number] [facility] 12/01/2017 [facility] [id number] [facility] 12/01/2017 12/02/2017 [facility] Admitted Inpatient [id number] ABHIJIT LLOYD MD 05/04/[address] [facility] [place] [place] Procedures Procedure Code Date Perfomer Comments Source CT of abdomen and pelvis without contrast [id number] 05/03/2018 [facility] X-ray of chest, single view [id number] 05/03/2018 [facility] Hernia repair<sup>1</sup> [id number] 1980 & 1988 [facility] LASIK [id number] [facility] Provision of collar<sup>2</sup> [id number] collar bone fracture [facility] Assessment and Plan No Data Provided [...] or discomfort, temperature increase or decrease. 05/07/[address] [facility] [place] [place] Discharge Date 09/01/17 12:03pm Disposition HOME, SELF-CARE Instructions/Education Provided Diabetes and Diet Urinary Tract Infection - Men Prescriptions See Medication Section Referrals ABHIJIT LLOYD MD (Internal Medicine) Entered Date: 09/01/2017 10:06am Address: [address] [place] [id number] Note: Follow up in 1 week. Call office to make appointment. Additional Instructions/Education follow up with in 1 week. Call office to make an appointment. 09/01/[address] [facility] [place] [place] Social History Social History Date Source Social [...] Start Date Stop Date Never Smoker 05/07/[address] [facility] [place] [place] Social History TypeResponse Substance Abuse Use: None. Recreational Drug Route: Oral. Employment/School Status: Employed. Alcohol Current, Type Beer. Frequency: 3-5 times per week. Smoking Status Never smoker; Exposure to Tobacco Smoke None; Cigarette Smoking Last 365 Days No; Reg Smoking Cessation Counseling Yes entered on: 12/01/17 12/01/2017 [facility] No data available for this section [facility]/24/[facility] No data available for this section 06/02/2017 [facility] Family History No Data Provided for This Section Advance Directives Order Name Results Value Date Source Advance Directives Advance Directives Directive Response Recorded Date/Time Does the patient have an advance directive? No 05/04/18 10:00pm If yes, is advance directive on file with [facility]? Yes 05/04/18 10:00pm If not on file with [facility] will patient provide a copy? Yes 05/04/18 10:00pm Do you have a Directive to Physician? Yes 05/03/18 3:58pm Do you have a Medical Power of Apprentice Cook? Yes 05/03/18 3:58pm Do you have an [...] rights and responsibilities? Yes 05/03/18 3:58pm 05/07/[address] [facility] [place] [place] Advance Directives Advance Directives Directive Response Recorded Date/Time Does the patient have an advance directive? Yes 08/29/17 9:42am If yes, is advance directive on file with [facility]? Yes 08/29/17 9:42am If not on file with [facility] will patient provide a copy? No 08/29/17 9:42am Do you have a Directive to Physician? No 08/29/17 12:49am Do you have a Medical Power of Apprentice Cook? No 08/29/17 12:49am Do you have an [...] rights and responsibilities? Yes 08/29/17 12:49am 09/01/[address] [facility] [place] [place] Functional Status No Data Provided for This Section
[2018-10-17] MEDS ORDERED: DEXTROSE 50% SYRINGE 50 ML IV PRN (02:45)
[2018-10-17] MEDS ORDERED: MEROPENEM 500MG 500 MG in SODIUM CHLORIDE 0.9% 50ML 50 ML IV SCH ×4 (02:45)
[2018-10-17] MEDS: ONDANSETRON HCL INJ 2MG/ML 2ML 2 MG/ML VIAL IV PRN ×3 (02:59→23:02)
[2018-10-17] MEDS: SODIUM CHLORIDE 0.9% 1000ML 1,000 ML IV SCH ×3 (02:59→13:23)
[2018-10-17] MEDS ORDERED: SODIUM BICARBO650 MG PO (03:07)
[2018-10-17] MEDS ORDERED: NIFEDIPINE ER60 M1 PO (03:07)
[2018-10-17] MEDS ORDERED: MAGOX 400400 MG PO (03:12)
[2018-10-17] MEDS ORDERED: LASIX40 MG PO (03:12)
--- NOTE | 2018-10-17 03:30 | NUR ---
Patient arrived to the unit from er in a stretcher with c/o lower back pain since 2 days.assessment done.aaoxe3.no resp.distress.on suprapubic catheter.cloudy urine draining.bed locked and in lowest position.phone and call light within reach.instructed to call for assistance as needed.
[2018-10-17] MEDS ORDERED: TRAMADOL HCL 50 MG TAB PO PRN (04:15)
--- NOTE | 2018-10-17 06:59 | NUR ---
Bed side shift report given to the on coming rn.stable condition.
--- NOTE | 2018-10-17 07:05 | NUR ---
PT RESTING IN BED AA0X3. PT IS RESTING IN BED WITH PAINS TO RIGHT FLANK THAT RATE A 5.10 PT HAS A SUPRAPUBIC CATH DRAINING PALE YELLOW URINE IN BAG INSERTION SITE HAS A GAUZE WITH SURROUNDING MINIMAL BLOOD AROUND TUBE SITE IV TO THE LEFT FA 20 WITH NS AT 100CC/HR WILL CONTINUE TO MONITOR PT CLOSELY. SIDE RAILSX2, BED WHEELS LOCKED, CALL LIGHT IS WITHIN EASY REACH INSTRUCTED TO CALL FOR ASSISTANCE IF NEEDED
[2018-10-17] MEDS: INSULIN REGULAR, HUMAN 100 UNIT/1 ML 3ML VIAL SQ SCH ×4 (07:30→21:00)
[2018-10-17] MEDS ORDERED: NIFEDIPINE CR 30 MG TAB PO NR (08:15)
[2018-10-17] MEDS ORDERED: HYDROCODONE/APAP 10MG-325MG TAB PO PRN (08:15)
[2018-10-17] MEDS ORDERED: HYDROCODONE/APAP 10MG-325MG TAB PO NR (08:15)
[2018-10-17] MEDS: MORPHINE SULFATE INJ 4 MG/ML INJ 1ML IV PRN ×3 (08:34→23:13)
[2018-10-17] MEDS ORDERED: MAGNESIUM OXIDE PO SCH (09:00)
[2018-10-17] MEDS ORDERED: NON-FORMULARY MEDICATION (Nifedipine (Nifedipine Er) 60 MG) PO SCH (09:00)
[2018-10-17] MEDS ORDERED: NIFEDIPINE CR 30 MG TAB PO SCH (09:00)
--- NOTE | 2018-10-17 09:01 | NUR ---
PT UNABLE TO TAKE SCHEDULED ORAL MEDS AT THIS TIME DUE TO NAUSEA. PRN ZOFRAN GIVEN. NOT EFFECTIVE. WILL GIVE PT TIME TO FEEL BETTER
[2018-10-17] MEDS: GABAPENTIN 300 MG CAP PO SCH ×3 (09:31→21:06)
[2018-10-17] MEDS: SODIUM BICARBONATE 650 MG TAB PO SCH ×2 (09:31→16:26)
[2018-10-17] MEDS: MAGNESIUM OXIDE 400 MG TAB PO SCH ×2 (09:31→16:25)
[2018-10-17] MEDS ORDERED: MEROPENEM 500MG/ NS 50ML 50 ML IV SCH (09:45)
[2018-10-17] MEDS: INSULIN LISPRO 100 UNIT/1 ML 3ML VIAL SQ SCH ×2 (11:30→16:25)
[2018-10-17] MEDS: PROMETHAZINE 12.5MG/ NACL 0.9% 12.5 MG/50 ML BAG IV PRN (13:31)
--- NOTE | 2018-10-17 14:00 | History and Physical ---
CHIEF COMPLAINT: Barcenas suprapubic site drainage. Gross hematuria. Complicated urinary tract infection. SUMMARY: The patient is a 38-year-old male, diabetes type 1 on insulin therapy. The patient also has neurogenic urinary bladder and chronic kidney disease, came into the hospital with very cloudy urine associated with blood and then also on the suprapubic site, the patient has some drainage pustular discharge. The patient is admitted. He does have significant urinary tract infection associated with indwelling Barcenas catheter. He is also having hematuria as well. The patient did have some elevation of blood pressure. The patient is otherwise stable at this time. The patient recently had his Barcenas catheter exchanged approximately 3 weeks ago. The patient's blood sugar at home per patient in the 100-200. It is per patient well-controlled. He does have chronic anemia secondary to chronic kidney disease. PAST MEDICAL HISTORY: Neurogenic urinary bladder with indwelling suprapubic Barcenas catheter. Diabetes type 1 on insulin therapy. Peripheral vascular disease. Hypertension, dyslipidemia. Multiple lower extremity surgery due to trauma. Chronic kidney disease. SOCIAL HISTORY: The patient does not smoke or use alcohol. No regular drug use. 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 ALLERGIES: TO IODINE CONTRAST, ORAL AND IV. HOME MEDICATION: List is reviewed. REVIEW OF SYSTEMS: Leakage and drainage from the suprapubic catheter. PHYSICAL EXAMINATION: VITAL SIGNS: Temperature is 98, blood pressure 158/92, pulse rate 96, respirations 20. GENERAL: The patient is not in acute distress. He is awake. HEENT: Normocephalic, atraumatic. Pupils reactive. Anicteric. NECK: Supple grossly. PULMONARY: Diminished breath sounds without any wheezing or rales. CARDIOVASCULAR: S1, S2. Regular rate and rhythm. ABDOMEN: Suprapubic catheter with a drainage at the site. It is soft, non-distention. NEUROLOGIC: No gross focal deficit. LABORATORY DATA: WBC 5.4, hemoglobin 9, hematocrit 27, platelet is 128. Chemistry; sodium 141, potassium 5, chloride 116, bicarb 16, BUN is 67, creatinine 5.2, glucose is 102. Urinalysis; cloudy urine, 3+ protein, 3+ blood, leukocyte esterase 2+, 50 rbc's, greater than 50 wbc's, and many bacteria. Microbiology still pending with urine culture. IMPRESSION: 1. Complicated urinary tract infection associated with indwelling Barcenas catheter. 2. Baseline diabetes type 1 and neurogenic urinary bladder with suprapubic catheterization. 3. Acute kidney injury on chronic kidney disease. 4. Possible dehydration. 5. Possible urinary Barcenas catheter obstruction versus infection could contribute to the patient's acute kidney injury. PLAN: Continue with meropenem since the patient had ESBL infection in the past. Continue with IV fluids. Home medication resumed. Insulin sliding scale coverage. Consultation with Dr. Castro Jalloh and Dr. Lew Karimi. The patient specialists who he saw outside the hospital. We will continue with current management. Repeat lab work in the morning. MD SADA Haywood/NOREEN /[id number]
--- NOTE | 2018-10-17 14:35 | Consultation ---
DATE OF CONSULTATION: 10/17/2018 Renal consultation ATTENDING PHYSICIAN: Donald Potts MD. REASON FOR CONSULTATION: Acute kidney injury on chronic kidney disease. HISTORY OF PRESENT ILLNESS: A 38-year-old male with history of stage 4 chronic kidney disease and neurogenic bladder with suprapubic catheter, known well to me from outpatient clinic, presented to [facility] with nausea, vomiting, and change in urine color. The patient states that he developed some decrease in urine output and color change. He suspected he might have a UTI. At some point, he felt his suprapubic catheter got dislodged and as he continued to have vomiting, he presented to the emergency room. The patient was found to have worsening kidney function and pyuria, and was started on antibiotics, IV fluids, admitted, and Nephrology and Urology consultations were called. REVIEW OF SYSTEMS: As above. All other systems negative. PAST MEDICAL HISTORY: 1. Chronic kidney disease stage 4. 2. Diabetes type 2, complicated by neuropathy. 3. Neurogenic bladder with suprapubic catheter. 4. Hypertension. 5. Anemia secondary to chronic kidney disease. PAST SURGICAL HISTORY: 1. Cataract surgery. 2. Cholecystectomy. 3. Right knee surgery. 4. Suprapubic catheter. SOCIAL HISTORY: No tobacco. No alcohol. No IV drugs. FAMILY HISTORY: Positive for chronic kidney disease. ALLERGIES: NO KNOWN DRUG ALLERGIES. CURRENT MEDICATIONS: See list includes meropenem and gabapentin. PHYSICAL EXAMINATION: VITAL SIGNS: Blood pressure 134/69, pulse 97, respiratory rate 16, and temperature 97.1. GENERAL: No apparent distress. HEENT: Oropharynx clear. No scleral icterus. No periorbital edema. NECK: Supple. No elevation in jugular venous pressure. No lymphadenopathy. CHEST: Clear to auscultation anteriorly bilaterally. CARDIOVASCULAR: Regular rhythm. No murmurs or rubs. ABDOMEN: Soft. Positive bowel sounds. No tenderness. No rebound. EXTREMITIES: No edema. No clubbing. No cyanosis. PELVIS: Suprapubic catheter with some drainage around the insertion site. LABORATORY DATA: Sodium 141, potassium 5, chloride 116, CO2 of 16, BUN 67, and creatinine 5.16. White count 5.4, hemoglobin 9, hematocrit 27.3, and platelets 128. Urine cloudy, 3+ blood, greater than 50 RBCs, and greater than 50 WBCs. ASSESSMENT AND PLAN: 1. Acute kidney injury on stage 4 chronic kidney disease secondary to urinary tract infection and volume depletion. Continue with IV fluids. 2. Metabolic acidosis secondary to above. We will start patient on oral bicarbonate and may need bicarb drip. 3. Pyuria, on meropenem. Await for culture and sensitivity. 4. Diabetes per primary team. 5. Hypertension. Resume home medications. MD DARRON Pisano/NOREEN /[id number]
[2018-10-17] MEDS: MEROPENEM 500MG/ NS 50ML 50 ML IV SCH (15:13)
--- NOTE | 2018-10-17 16:29 | NUR ---
PAGED MD LLOYD REGARDING PT LOW BP OF 93/53 WITH HR OF 84 PT STATES AT HOME HES NOTICED HIS BP DROP AFTER PROCARDIA DOSAGE LEFT DETAILED MESSAGED REGARDING PT CONDITION AND STATUS AWAITING FOR CALL BACK
--- NOTE | 2018-10-17 19:20 | NUR ---
Bed side shift report taken from morning rn.patient is lyeing in the bed.stable condition.bp is 102/69 mmof hg.
--- NOTE | 2018-10-17 22:52 | NUR ---
SUPRAPUBIC CATHETER INSERTION SITE IS COVERED WITH DRESSING.BED LOCKED AND IN LOWEST POSITION.PHONE AND CALL LIGHT WITHIN REACH.INSTRUCTED TO CALL FOR ASSISTANCE NEEDED.
[2018-10-18] MEDS: SODIUM CHLORIDE 0.9% 1000ML 1,000 ML IV SCH (00:33)
[2018-10-18] MEDS: MEROPENEM 500MG/ NS 50ML 50 ML IV SCH ×2 (03:16→16:20)
[2018-10-18 04:42] VITALS: BP 162/92
[2018-10-18] MEDS: ONDANSETRON HCL INJ 2MG/ML 2ML 2 MG/ML VIAL IV PRN ×4 (04:42→18:31)
[2018-10-18] MEDS: MORPHINE SULFATE INJ 4 MG/ML INJ 1ML IV PRN ×5 (04:53→22:02)
[2018-10-18 05:51] LABS: BASOPHILS % 0.3 % (0.0-1.0); EOSINOPHILS # (AUTO) 0.1 (0.0-0.4); EOSINOPHILS % 2.6 % (0.0-6.0); HEMATOCRIT 24.1 % (38.2-49.6); HEMOGLOBIN 7.9 g/dL (14.0-18.0); LYMPHOCYTES # (AUTO) 1.3 (1.0-3.2); LYMPHOCYTES % 36.6 % (18.0-39.1); MEAN CORPUSCULAR HEMOGLOBIN 27.6 pg (28-32); MEAN CORPUSCULAR HGB CONC 32.8 g/dL (31-35); MEAN CORPUSCULAR VOLUME 84.3 fL (81-99); MONOCYTES # (AUTO) 0.3 (0.2-0.8); MONOCYTES % 9.6 % (4.4-11.3); NEUTROPHILS # (AUTO) 1.7 (2.1-6.9); NEUTROPHILS % 50.6 % (38.7-80.0); PLATELET COUNT 85 x10e3/uL (140-360); RED BLOOD COUNT 2.86 x10e6/uL (4.3-5.7); RED CELL DISTRIBUTION WIDTH 14.8 % (11.7-14.4)
[2018-10-18 06:11] LABS: ALBUMIN 2.7 g/dL (3.5-5.0); ALBUMIN/GLOBULIN RATIO 0.7 (0.8-2.0); ANION GAP 13.1 mmol/L (8-16); CREATININE, SERUM 4.31 mg/dL (0.72-1.25); POTASSIUM 5.1 mmol/L (3.5-5.1)
[2018-10-18 06:16] LABS: CALCIUM 6.6 mg/dL (8.4-10.2)
--- NOTE | 2018-10-18 06:22 | NUR ---
Lab critical value calcium 6.6 notified to .no new order received.
--- NOTE | 2018-10-18 06:50 | NUR ---
Bed side shift report given to the on coming rn.stable condition.
--- NOTE | 2018-10-18 07:29 | NUR ---
Rcvd patient in report this am. Patient is asleep in bed at this time. No s/s of distress noted
[2018-10-18] MEDS: INSULIN LISPRO 100 UNIT/1 ML 3ML VIAL SQ SCH ×3 (07:30→16:30)
[2018-10-18] MEDS: INSULIN REGULAR, HUMAN 100 UNIT/1 ML 3ML VIAL SQ SCH ×4 (07:30→20:20)
[2018-10-18 08:00] VITALS: BP 153/98
[2018-10-18 08:13] VITALS: BP 153/98
[2018-10-18] MEDS: SODIUM BICARBONATE 650 MG TAB PO SCH ×2 (08:31→16:21)
[2018-10-18] MEDS: GABAPENTIN 300 MG CAP PO SCH ×3 (08:31→20:19)
[2018-10-18] MEDS: MAGNESIUM OXIDE 400 MG TAB PO SCH ×2 (08:31→16:20)
[2018-10-18] MEDS ORDERED: NIFEDIPINE CR 30 MG TAB PO SCH (09:00)
[2018-10-18] MEDS: NIFEDIPINE CR 30 MG TAB PO SCH ×2 (09:00→16:21)
--- NOTE | 2018-10-18 10:04 | Diagnostic Imaging Report ---
Exam: CT abdomen and pelvis Comparison: May 03, 2018 Clinical history: Acute renal failure Technique: Helical images of the abdomen and pelvis were obtained without contrast Findings: The lung bases are clear. There is no evidence of pleural effusion. The cardiac size is within normal limits. Noncontrast images of the liver, spleen, adrenal glands, and kidneys are unremarkable. The gallbladder has been removed. Scattered calcifications are again noted throughout the pancreas likely secondary to chronic pancreatitis. The small and large bowels are normal in caliber without evidence of obstruction. The appendix is visualized and within normal limits. A suprapubic catheter is again noted within the bladder. There is circumferential thickening of the bladder wall likely chronic in nature. The prostate and seminal vesicles are unremarkable. There is no evidence of free fluid. The aorta and IVC are normal in caliber. Scattered lymph nodes are again noted throughout bilateral inguinal regions without interval changes. These may be reactive in nature. Recommend clinical correlation. Impression: 1. No intra-abdominal pelvic abnormalities for a noncontrast CT. 2. Chronic inflammatory changes of the pancreas again noted. 3. Status post cholecystectomy. 4. Suprapubic catheter again visualized. Signed by: Dr. Nelson Rivera MD on 10/18/2018 10:00 AM
--- NOTE | 2018-10-18 11:02 | NUR ---
Patient is AAOx3. Patient lung velarde clear to auscultation. Bowel sounds present x4. No edema noted. Suprapubic cath in place. Clear urine noted. Patient c/o pain in his lower back. PRN pain meds given. Patient ambulates with crutches. Left forearm IV in place. Iv fluids infusing. No s/s of distress noted
--- NOTE | 2018-10-18 11:26 | NUR ---
Report called to PRUDENCE Head. Patient to transfer to [facility]
[2018-10-18 12:00] VITALS: BP 97/62
--- NOTE | 2018-10-18 12:05 | NUR ---
Patient transported to [facility] via wheelchair
--- NOTE | 2018-10-18 12:07 | NUR ---
Call placed to Dr. Karimi regarding abnormal calcium results. Awaiting call back
--- NOTE | 2018-10-18 15:16 | NUR ---
Nutrition Screen Note RD Recommendation for Physician: -Continue current diet per MD. -Consider renal diet pending lab trends. Plan of Care: RD following, monitoring for tolerance and adequacy. Education provided. Nutrition reason for involvement: Diagnosis Primary Diagnose(s): acute renal failure, dehydration PMH: diabetes type 1 on insulin therapy, neurogenic urinary bladder and chronic kidney disease, Peripheral vascular disease. Hypertension, dyslipidemia. Multiple lower extremity surgery due to trauma. Ht: 71 in Wt: 219 lb BMI: 30.5 kg/m2 IBW: [address] Assessment: 10/18: 38 YOM admitted for acute renal failure with PMH listed above. Pt reports that his appetite has been somewhat poor this past week, and the pt stated that his N/V has been improving but stated he had a loose BM this morning. Pt denied chewing or swallowing issues as well as any food allergies. Pt is getting a CT of the abdomen. Pt was educated on the renal, low Na and T1DM diet and given educational handouts. Chart reviewed. Labs and meds reviewed. POC GM: 127. Pt is on lispro and regular. Pt was 229 lbs in May 2018, suggesting a 4.2 % weight loss in 4 months. Pt had no other questions or concerns. Will continue to monitor. Current Diet: 1800 ADA diet Malnutrition Evaluation (10/18) The patient does not meet criteria for a specified degree of malnutrition at this time. Will re-evaluate at follow-up as appropriate. Diet Education Needs Assessment: Diet education indicated, pt agreeable. Learner(s): pt Barriers: none Cultural/Language Modifications: none Readiness: acceptance Method: discussion, handout, teach back Topics: T1DM, Renal, Low Na diets Understanding/Compliance: verbalized understanding, anticipate good compliance Nutrition Care Level: low
[2018-10-18 16:10] VITALS: BP 105/65
--- NOTE | 2018-10-18 19:09 | NUR ---
Received change of shift report. Walking rounds completed.
--- NOTE | 2018-10-18 19:16 | NUR ---
Dr Enriquez on the floor to see patient. Lab ordered for the AM.
[2018-10-18 20:00] VITALS: BP 130/77
[2018-10-18] MEDS: PROMETHAZINE 12.5MG/ NACL 0.9% 12.5 MG/50 ML BAG IV PRN (22:02)
[2018-10-19] VITALS (9 sets, daily range): BP systolic 107–178; BP diastolic 58–98
--- NOTE | 2018-10-19 | NUR ---
Patient in bed. C/O pain =5-6 gen. Pain meds given as order by MD. Continue monitor.
[2018-10-19] MEDS: SODIUM CHLORIDE 0.9% 1000ML 1,000 ML IV SCH ×4 (00:58→23:03)
[2018-10-19] MEDS: MEROPENEM 500MG/ NS 50ML 50 ML IV SCH ×2 (02:57→15:01)
--- NOTE | 2018-10-19 05:10 | NUR ---
Patient resting quitly at this time.
[2018-10-19] MEDS: MORPHINE SULFATE INJ 4 MG/ML INJ 1ML IV PRN ×4 (05:46→20:28)
[2018-10-19] MEDS: ONDANSETRON HCL INJ 2MG/ML 2ML 2 MG/ML VIAL IV PRN ×4 (05:46→20:37)
[2018-10-19 06:22] LABS: ANION GAP 11.6 mmol/L (8-16); CREATININE, SERUM 3.86 mg/dL (0.72-1.25); POTASSIUM 5.6 mmol/L (3.5-5.1)
[2018-10-19 06:40] LABS: FERRITIN 242.22 ng/mL (21.81-274.66)
[2018-10-19 06:54] LABS: CALCIUM 6.1 mg/dL (8.4-10.2)
--- NOTE | 2018-10-19 06:58 | NUR ---
spoke to lab regarding lab results. dr krasu paged at time. primary nurse made aware.
[2018-10-19] MEDS: INSULIN REGULAR, HUMAN 100 UNIT/1 ML 3ML VIAL SQ SCH ×4 (07:30→20:26)
[2018-10-19] MEDS: INSULIN LISPRO 100 UNIT/1 ML 3ML VIAL SQ SCH ×4 (07:30→16:30)
[2018-10-19] MEDS ORDERED: SOD POLYSTYRENE SULFONATE SUSP 15 GM/60 ML BTL PR ONE (09:25)
[2018-10-19] MEDS ORDERED: CALCIUM GLUCONATE 10% INJ 9.3 MEQ in SODIUM CHLORIDE 0.9% 100 ML 100 ML IV ONE (10:00)
[2018-10-19] MEDS: NIFEDIPINE CR 30 MG TAB PO SCH ×2 (10:29→17:00)
[2018-10-19] MEDS: GABAPENTIN 300 MG CAP PO SCH ×3 (10:29→20:28)
[2018-10-19] MEDS: MAGNESIUM OXIDE 400 MG TAB PO SCH ×2 (10:30→17:14)
[2018-10-19] MEDS: SODIUM BICARBONATE 650 MG TAB PO SCH ×2 (10:30→17:15)
[2018-10-19] MEDS: HYDRALAZINE HCL 20 MG/ML VIAL IV PRN (11:49)
[2018-10-19] MEDS: IRON SUCROSE 100 MG in SODIUM CHLORIDE 0.9% 100 ML 100 ML IV SCH (12:51)
--- NOTE | 2018-10-19 18:45 | NUR ---
Received bedside report from day shift RN. The patient is sitting up on the bed, not in distress. Call light within reach, bed height low, side rails up x2, and wheels lock.
[2018-10-20] VITALS (8 sets, daily range): BP systolic 119–188; BP diastolic 66–104
[2018-10-20] MEDS: MORPHINE SULFATE INJ 4 MG/ML INJ 1ML IV PRN ×6 (02:38→20:05)
[2018-10-20] MEDS: MEROPENEM 500MG/ NS 50ML 50 ML IV SCH ×2 (02:38→15:01)
[2018-10-20] MEDS: ONDANSETRON HCL INJ 2MG/ML 2ML 2 MG/ML VIAL IV PRN ×5 (02:38→20:05)
[2018-10-20 05:54] LABS: BASOPHILS % 0.3 % (0.0-1.0); EOSINOPHILS # (AUTO) 0.1 (0.0-0.4); EOSINOPHILS % 3.8 % (0.0-6.0); HEMATOCRIT 24.4 % (38.2-49.6); LYMPHOCYTES # (AUTO) 1.2 (1.0-3.2); LYMPHOCYTES % 37.6 % (18.0-39.1); MEAN CORPUSCULAR HEMOGLOBIN 27.6 pg (28-32); MEAN CORPUSCULAR HGB CONC 32.8 g/dL (31-35); MEAN CORPUSCULAR VOLUME 84.1 fL (81-99); MONOCYTES # (AUTO) 0.2 (0.2-0.8); NEUTROPHILS # (AUTO) 1.6 (2.1-6.9); PLATELET COUNT 90 x10e3/uL (140-360); RED CELL DISTRIBUTION WIDTH 14.6 % (11.7-14.4)
[2018-10-20] MEDS ORDERED: CALCIUM CARBONATE 500 MG CHEWABLE TABS PO SCH (06:00)
[2018-10-20 06:13] LABS: ANION GAP 12.1 mmol/L (8-16); CREATININE, SERUM 3.63 mg/dL (0.72-1.25); POTASSIUM 5.1 mmol/L (3.5-5.1)
[2018-10-20 06:21] LABS: CALCIUM 6.8 mg/dL (8.4-10.2)
--- NOTE | 2018-10-20 06:32 | NUR ---
Called and left a voicemail for Dr. Potts for lab critical on calcium at 6.8 The patient received 4 tablets of Tums at 0455 and blood draw occurred at 0523.
--- NOTE | 2018-10-20 07:06 | NUR ---
RECEIVED PATIENT RESTING IN BED. NO ACUTE DISTRESS NOTED. CALL LIGHT WITHIN REACH. PAIN AT A TOLERABLE LEVEL AT THIS TIME. BED IN THE LOWEST POSITION.
[2018-10-20] MEDS: INSULIN LISPRO 100 UNIT/1 ML 3ML VIAL SQ SCH ×3 (07:30→17:43)
[2018-10-20] MEDS: INSULIN REGULAR, HUMAN 100 UNIT/1 ML 3ML VIAL SQ SCH ×4 (07:30→20:04)
[2018-10-20] MEDS: NIFEDIPINE CR 30 MG TAB PO SCH ×2 (08:44→16:04)
[2018-10-20] MEDS: SODIUM BICARBONATE 650 MG TAB PO SCH ×2 (08:44→16:04)
[2018-10-20] MEDS: MAGNESIUM OXIDE 400 MG TAB PO SCH ×2 (08:44→16:04)
[2018-10-20] MEDS: GABAPENTIN 300 MG CAP PO SCH ×3 (08:44→20:03)
[2018-10-20] MEDS: SODIUM CHLORIDE 0.9% 1000ML 1,000 ML IV SCH ×2 (09:35→22:59)
[2018-10-20] MEDS: IRON SUCROSE 100 MG in SODIUM CHLORIDE 0.9% 100 ML 100 ML IV SCH (09:35)
--- NOTE | 2018-10-20 11:00 | NUR ---
DR. HARRISON IN TO SEE PATIENT, NOTIFIED HIM OF CALCIUM LEVEL OF 6.8, PER MD PATIENT IS ALREADY RECEIVING CALCIUM CARBONATE 2,000MG DAILY.
[2018-10-20] MEDS: HYDRALAZINE HCL 20 MG/ML VIAL IV PRN (11:32)
[2018-10-20] MEDS: PROMETHAZINE 12.5MG/ NACL 0.9% 12.5 MG/50 ML BAG IV PRN (12:28)
[2018-10-20] MEDS: CEFEPIME 1GM/NS 0.9% 50 ML 50 ML IV SCH (12:44)
--- NOTE | 2018-10-20 19:19 | NUR ---
REPORT GIVEN TO ONCOMING NURSE. WALKING ROUNDS DONE. PATIENT IS RESTING IN BED. NO ACUTE DISTRESS NOTED. NO S/S OF PAIN NOTED AT THIS TIME. FAMILY MEMBER AT BEDSIDE. CALL LIGHT WITHIN REACH. BED IN THE LOWEST POSITION.
--- NOTE | 2018-10-20 19:36 | NUR ---
PT IS RESTING IN BED WITH FAMILY AT BEDSIDE. RESPIRATION IS EVEN AND UNLABORED, NO DISTRESS NOTED. BED IN THE LOWEST POSITION, LOCKED, AND CALL LIGHT WITHIN REACH. WILL CONTINUE TO MONITOR.
[2018-10-21] VITALS (9 sets, daily range): BP systolic 119–182; BP diastolic 67–96
[2018-10-21] MEDS: MORPHINE SULFATE INJ 4 MG/ML INJ 1ML IV PRN ×6 (00:14→20:08)
[2018-10-21] MEDS: ONDANSETRON HCL INJ 2MG/ML 2ML 2 MG/ML VIAL IV PRN ×5 (00:14→20:08)
[2018-10-21] MEDS: MEROPENEM 500MG/ NS 50ML 50 ML IV SCH (03:09)
[2018-10-21 05:36] LABS: BASOPHILS % 0.3 % (0.0-1.0); EOSINOPHILS # (AUTO) 0.1 (0.0-0.4); EOSINOPHILS % 3.2 % (0.0-6.0); HEMATOCRIT 24.5 % (38.2-49.6); HEMOGLOBIN 7.9 g/dL (14.0-18.0); LYMPHOCYTES # (AUTO) 1.2 (1.0-3.2); LYMPHOCYTES % 31.8 % (18.0-39.1); MEAN CORPUSCULAR HEMOGLOBIN 27.1 pg (28-32); MEAN CORPUSCULAR HGB CONC 32.2 g/dL (31-35); MEAN CORPUSCULAR VOLUME 83.9 fL (81-99); MONOCYTES # (AUTO) 0.3 (0.2-0.8); MONOCYTES % 7.2 % (4.4-11.3); NEUTROPHILS # (AUTO) 2.1 (2.1-6.9); PLATELET COUNT 92 x10e3/uL (140-360); RED BLOOD COUNT 2.92 x10e6/uL (4.3-5.7); RED CELL DISTRIBUTION WIDTH 14.7 % (11.7-14.4)
[2018-10-21 06:03] LABS: ANION GAP 15.4 mmol/L (8-16); CREATININE, SERUM 3.5 mg/dL (0.72-1.25); POTASSIUM 5.4 mmol/L (3.5-5.1)
[2018-10-21 06:05] LABS: CALCIUM 6.9 mg/dL (8.4-10.2)
--- NOTE | 2018-10-21 06:24 | NUR ---
SPOKE TO DR LLOYD IN REGARD TO PT CALCIUM LEVEL OF 6.9. PER DR LLOYD DO NOT CALL HIM ABOUT CALCIUM LEVEL. NO NEW ORDER. WILL CONTINUE TO MONITOR.
--- NOTE | 2018-10-21 06:37 | NUR ---
LEFT A MESSAGE FOR DR TRAMMELL IN REGARD TO PT CALCIUM LEVEL OF 6.9. AWAITING CALL BACK. WILL CONTINUE TO MONITOR.
[2018-10-21] MEDS: INSULIN LISPRO 100 UNIT/1 ML 3ML VIAL SQ SCH ×3 (07:30→17:30)
[2018-10-21] MEDS: INSULIN REGULAR, HUMAN 100 UNIT/1 ML 3ML VIAL SQ SCH ×4 (07:30→20:08)
--- NOTE | 2018-10-21 07:40 | NUR ---
Morning rounds completed. Patient resting in bed, reports nausea and generalized pain level of 8/10. Given PRN morphine and Zofran. Will continue to monitor.
--- NOTE | 2018-10-21 07:54 | NUR ---
Patient potassium level 5.4, calcium level 6.9. Dr. Karimi called, no answer. Left voicemail. Awaiting sonography technologist back. Will continue to monitor patient.
[2018-10-21] MEDS: GABAPENTIN 300 MG CAP PO SCH ×3 (08:04→20:08)
[2018-10-21] MEDS: SODIUM BICARBONATE 650 MG TAB PO SCH ×2 (08:04→16:09)
[2018-10-21] MEDS: MAGNESIUM OXIDE 400 MG TAB PO SCH ×2 (08:04→16:09)
[2018-10-21] MEDS: CALCIUM CARBONATE 500 MG CHEWABLE TABS PO SCH (08:05)
[2018-10-21] MEDS: NIFEDIPINE CR 30 MG TAB PO SCH ×2 (08:05→16:09)
--- NOTE | 2018-10-21 08:14 | NUR ---
Dr. Chau called back in regards to page on potassium level of 5.4 and calcium level of 6.9. Per MD is ok, no new orders received at this time.
[2018-10-21] MEDS: IRON SUCROSE 100 MG in SODIUM CHLORIDE 0.9% 100 ML 100 ML IV SCH (10:00)
[2018-10-21] MEDS: SODIUM CHLORIDE 0.9% 1000ML 1,000 ML IV SCH (10:00)
[2018-10-21] MEDS ORDERED: SOD POLYSTYRENE SULFONATE SUSP 15 GM/60 ML BTL PO ONE (10:30)
[2018-10-21] MEDS: HYDRALAZINE HCL 20 MG/ML VIAL IV PRN (11:40)
[2018-10-21] MEDS: CEFEPIME 1GM/NS 0.9% 50 ML 50 ML IV SCH (12:33)
--- NOTE | 2018-10-21 14:40 | NUR ---
Patient left unit via wheelchair for renal scan. Patient in stable condition.
--- NOTE | 2018-10-21 15:50 | NUR ---
Patient returned to unit from renal scan. No signs of distress. Bed locked and in low position, call light within reach. Family at bedside. Will continue to monitor.
[2018-10-21] MEDS ORDERED: FUROSEMIDE INJ 10 MG/ML 4 ML VIAL ONE (15:59)
--- NOTE | 2018-10-21 18:07 | Diagnostic Imaging Report ---
Renal Scan with Lasix Washout Clinical information: Acute renal failure Technique: Following intravenous administration of 10 mCi of Tc-99m MAG3, dynamic images of the kidneys in the posterior projection were obtained through 40 minutes. Lasix 40 mg was administered intravenously at 10 minutes post injection of the tracer. Report: Left kidney: Perfusion of the left kidney is prompt. The kidney has a elongated reniform shape with moderate thinning of the renal cortex. Extraction of tracer from the blood pool is overall decreased. Clearance of tracer from the renal parenchyma is begins promptly but is not complete by the end of the study. The pelvicalyceal system is moderately dilated. Increased pooling of tracer is seen within the pelvicalyceal system. No net drainage of tracer from the pelvicalyceal system is seen prior to administration of Lasix. Washout of tracer from the pelvicalyceal system following administration of Lasix is slow with a T-1/2 of 15 minutes (normal less than 15 minutes). No significant stasis of tracer is seen within the left ureter. Right kidney: Perfusion to the right kidney is prompt. The right kidney has distorted reniform shape with marked thinning of the renal cortex. The kidney is not as elongated as the left kidney and the renal cortex is more thinned than the renal cortex of the left kidney. Extraction of tracer by the renal parenchyma is decreased. Clearance of tracer from the renal parenchyma begins promptly but is not complete by the end of the study. The pelvicalyceal system is moderately dilated. Increased pooling of tracer is seen within the pelvicalyceal system. No net drainage of tracer from the pelvicalyceal system is seen prior to administration of Lasix. No washout of tracer from the pelvicalyceal system is seen following administration of Lasix. The T-1/2 for Lasix washout of the pelvicalyceal system is undefined as there is no downward slope of the time-activity curve. Differential renal function: The left kidney contributes 71% of total renal function and the right kidney contributes 29% (normal 43-57%). Impression: 1. Loss of renal parenchyma in the left kidney is suspected evidenced by the moderate thinning of the renal cortex. Significant medical renal disease is also present. Moderate hydronephrosis is present, however, physiologically significant obstruction at the UPJ is not suspected although the T-1/2 for Lasix washout is at the upper range of normal. 2. Loss of renal parenchyma is greater in the right kidney compared to the left kidney due to more severe thinning of the renal cortex. This accounts for the decreased differential renal function of 29%. SIgnificant medical renal disease is also present. Moderately severe hydronephrosis is present and physiologically significant obstruction of the UPJ is present. Signed by: Dr. Yuly Peralta M.D. on 10/21/2018 6:04 PM
--- NOTE | 2018-10-21 19:08 | NUR ---
Bedside report given to night nurse. Patient resting in bed, no signs of distress. Family at bedside. Bed locked and in low position, call light placed within reach.
[2018-10-22] VITALS (7 sets, daily range): BP systolic 109–171; BP diastolic 64–99
[2018-10-22] MEDS: SODIUM CHLORIDE 0.9% 1000ML 1,000 ML IV SCH (00:23)
[2018-10-22] MEDS: ONDANSETRON HCL INJ 2MG/ML 2ML 2 MG/ML VIAL IV PRN ×3 (00:25→18:05)
[2018-10-22] MEDS: MORPHINE SULFATE INJ 4 MG/ML INJ 1ML IV PRN ×5 (00:25→21:23)
[2018-10-22 06:08] LABS: ANION GAP 14.2 mmol/L (8-16); CREATININE, SERUM 3.57 mg/dL (0.72-1.25); POTASSIUM 5.2 mmol/L (3.5-5.1)
[2018-10-22 06:09] LABS: CALCIUM 6.8 mg/dL (8.4-10.2)
[2018-10-22] MEDS: INSULIN LISPRO 100 UNIT/1 ML 3ML VIAL SQ SCH ×3 (07:30→17:17)
[2018-10-22] MEDS: INSULIN REGULAR, HUMAN 100 UNIT/1 ML 3ML VIAL SQ SCH ×4 (07:30→21:23)
[2018-10-22] MEDS: PROMETHAZINE 12.5MG/ NACL 0.9% 12.5 MG/50 ML BAG IV PRN ×2 (08:34→21:23)
[2018-10-22] MEDS: HYDRALAZINE HCL 20 MG/ML VIAL IV PRN (08:35)
[2018-10-22] MEDS: NIFEDIPINE CR 30 MG TAB PO SCH ×2 (09:48→17:20)
[2018-10-22] MEDS: GABAPENTIN 300 MG CAP PO SCH ×3 (09:48→21:23)
[2018-10-22] MEDS: MAGNESIUM OXIDE 400 MG TAB PO SCH ×2 (09:48→17:19)
[2018-10-22] MEDS: SODIUM BICARBONATE 650 MG TAB PO SCH ×2 (09:49→17:20)
[2018-10-22] MEDS: CALCIUM CARBONATE 500 MG CHEWABLE TABS PO SCH (09:49)
[2018-10-22] MEDS ORDERED: LACTULOSE SYRUP 20 GM/30 ML UDC PO NR (10:45)
[2018-10-22] MEDS: SENNOSIDES 8.6 MG TAB PO SCH ×2 (12:48→17:20)
[2018-10-22] MEDS: METOCLOPRAMIDE HCL 10 MG TAB PO SCH ×3 (12:49→21:23)
[2018-10-22] MEDS: CEFEPIME 1GM/NS 0.9% 50 ML 50 ML IV SCH (13:09)
--- NOTE | 2018-10-22 13:26 | NUR ---
Nutrition Follow-up Note RD Recommendation for Physician: -Continue current diet per MD. Plan of Care: RD following, monitoring for tolerance and adequacy. Education provided. Nutrition reason for involvement: Follow up, RN consult - diet education Primary Diagnose(s): acute renal failure, dehydration PMH: diabetes type 1 on insulin therapy, neurogenic urinary bladder and chronic kidney disease, peripheral vascular disease, hypertension, dyslipidemia. Multiple lower extremity surgery due to trauma. Ht: 71 in Wt: 219 lb BMI: 30.5 kg/m2 IBW: [address] Assessment: 10/22: RN called for low potassium diet education. Visited pt in the room. Pt was eating fair. No GI complains reported. Provided handout and explanation on high vs low potassium foods. All questions have been answered. 10/18: 38 YOM admitted for acute renal failure with PMH listed above. Pt reports that his appetite has been somewhat poor this past week, and the pt stated that his N/V has been improving but stated he had a loose BM this morning. Pt denied chewing or swallowing issues as well as any food allergies. Pt is getting a CT of the abdomen. Pt was educated on the renal, low Na and T1DM diet and given educational handouts. Chart reviewed. Labs and meds reviewed. POC GM: 127. Pt is on lispro and regular. Pt was 229 lbs in May 2018, suggesting a 4.2 % weight loss in 4 months. Pt had no other questions or concerns. Will continue to monitor. Current Diet: renal diabetic diet Malnutrition Evaluation (10/18) The patient does not meet criteria for a specified degree of malnutrition at this time. Will re-evaluate at follow-up as appropriate. Diet Education Needs Assessment: Diet education indicated, pt agreeable. Learner(s): pt Barriers: none Cultural/Language Modifications: none Readiness: acceptance Method: discussion, handout, teach back Topics: T1DM, Renal, Low Na diets, High vs. Low potassium foods Understanding/Compliance: verbalized understanding, anticipate good compliance Nutrition Care Level: low Signed by Lupe Germain MS, RD, LD
--- NOTE | 2018-10-22 19:15 | NUR ---
Pt visited in room during nursing rounds. Patient alert and oriented x4. Pt ambulates with cane and with pronounced weakness on right leg (due to hx of right knee replacement). Pt has intermittent pain on lower back and get pain medication as scheduled. Call north within reach. Will monitor closely.
[2018-10-22] MEDS ORDERED: EPOETIN ALFA 10000 UNIT/ML VIAL SC ONE (19:30)
[2018-10-23] VITALS (7 sets, daily range): BP systolic 115–161; BP diastolic 69–97
[2018-10-23] MEDS: MORPHINE SULFATE INJ 4 MG/ML INJ 1ML IV PRN ×6 (04:29→23:46)
[2018-10-23] MEDS: NIFEDIPINE CR 30 MG TAB PO SCH ×2 (05:23→17:34)
[2018-10-23 06:27] LABS: ANION GAP 13.7 mmol/L (8-16); CREATININE, SERUM 3.3 mg/dL (0.72-1.25); POTASSIUM 4.7 mmol/L (3.5-5.1)
[2018-10-23] MEDS: METOCLOPRAMIDE HCL 10 MG TAB PO SCH ×4 (06:34→20:45)
[2018-10-23] MEDS: INSULIN LISPRO 100 UNIT/1 ML 3ML VIAL SQ SCH ×3 (07:30→17:34)
[2018-10-23] MEDS: INSULIN REGULAR, HUMAN 100 UNIT/1 ML 3ML VIAL SQ SCH ×4 (07:30→20:56)
[2018-10-23] MEDS: MAGNESIUM OXIDE 400 MG TAB PO SCH ×2 (08:10→17:34)
[2018-10-23] MEDS: SODIUM BICARBONATE 650 MG TAB PO SCH ×2 (08:11→17:34)
[2018-10-23] MEDS: SENNOSIDES 8.6 MG TAB PO SCH ×2 (08:11→17:34)
[2018-10-23] MEDS: CALCIUM CARBONATE 500 MG CHEWABLE TABS PO SCH (08:11)
[2018-10-23] MEDS: GABAPENTIN 300 MG CAP PO SCH ×3 (08:11→20:45)
[2018-10-23] MEDS: ONDANSETRON HCL INJ 2MG/ML 2ML 2 MG/ML VIAL IV PRN ×4 (08:12→23:46)
[2018-10-23] MEDS: PIPERACILLIN/TAZO 2.25 GM 50 ML IV SCH ×2 (10:22→20:45)
[2018-10-23] MEDS: PROMETHAZINE 12.5MG/ NACL 0.9% 12.5 MG/50 ML BAG IV PRN (11:22)
[2018-10-23] MEDS: EPOETIN ALFA 10000 UNIT/ML VIAL SC SCH (17:34)
[2018-10-24] VITALS (9 sets, daily range): BP systolic 122–172; BP diastolic 62–97
--- NOTE | 2018-10-24 00:20 | Progress Note ---
DATE: 10/23/2018 Medicine Progress Note SUBJECTIVE: I am covering for Dr. Donald Potts. The patient is currently doing well with no complaints. He is being treated for underlying complicated urinary tract infection. He has a history of neurogenic bladder with a suprapubic catheter. He is otherwise doing well at this time with no complaints. LABORATORY DATA: CBC reviewed and stable. Chemistry reviewed and stable. His creatinine is elevated at 3.3, but seems to be at his baseline. The rest of the electrolytes are stable. MICROBIOLOGY: Urine cultures noted Pseudomonas staphylococcus and enterococcus faecalis. PHYSICAL EXAMINATION: VITAL SIGNS: He is afebrile, normotensive, respiratory rate is good. GENERAL: Not in acute distress. Alert and oriented x3. Cooperative on examination. HEENT: Head; normocephalic and atraumatic. Eyes; pupils are equal, round, and reactive to light bilaterally. Extraocular movements are intact bilaterally. Throat; no evidence of erythema or exudates in the posterior pharynx. Has poor dentition. NECK: Supple. Good range of motion. PULMONARY: Clear to auscultation bilaterally. No wheezing, no rales, no rhonchi, no crackles appreciated. CARDIOVASCULAR: Positive S1 and S2. No murmurs, rubs, or gallops appreciated. ABDOMEN: Soft, nondistended, and nontender to palpation. Bowel sounds present. MUSCULOSKELETAL: Strength is 5/5 throughout. No evidence of any muscle deficits on examination. No weakness appreciated. NEUROLOGIC: Cranial nerve II through XII grossly intact. No evidence of any neurological deficits on exam. SKIN: Intact. Warm to touch. Good cap refill. PSYCHIATRIC: Normal affect and mood. EXTREMITIES: No edema. Good range of motion throughout. IMPRESSION: 1. Complicated urinary tract infection with indwelling Barcenas catheter. 2. Neurogenic bladder with suprapubic catheterization secondary to type 1 diabetes. 3. Acute kidney injury on chronic kidney disease stage 4. 4. Dehydration. PLAN: At this time, urine cultures noted. We will go ahead and get Infectious Disease consultation. He is on IV Zosyn, started by Dr. Potts. We will go ahead and get Infectious Disease to weigh it and just to see if this is normal conversation or other things and now need to know the length of therapy of antibiotics. Urology and Nephrology are following closely. Get a.m. labs. Monitor closely. MD THOMAS Ramos/NOREEN /[id number]
[2018-10-24] MEDS: ONDANSETRON HCL INJ 2MG/ML 2ML 2 MG/ML VIAL IV PRN ×5 (04:07→21:30)
[2018-10-24] MEDS: MORPHINE SULFATE INJ 4 MG/ML INJ 1ML IV PRN ×5 (04:07→21:30)
[2018-10-24 06:26] LABS: BASOPHILS % 0.5 % (0.0-1.0); EOSINOPHILS # (AUTO) 0.2 (0.0-0.4); EOSINOPHILS % 4.2 % (0.0-6.0); HEMATOCRIT 24.4 % (38.2-49.6); HEMOGLOBIN 7.9 g/dL (14.0-18.0); LYMPHOCYTES # (AUTO) 1.4 (1.0-3.2); LYMPHOCYTES % 36.6 % (18.0-39.1); MEAN CORPUSCULAR HEMOGLOBIN 27.5 pg (28-32); MEAN CORPUSCULAR HGB CONC 32.4 g/dL (31-35); MONOCYTES # (AUTO) 0.3 (0.2-0.8); MONOCYTES % 6.8 % (4.4-11.3); NEUTROPHILS # (AUTO) 1.9 (2.1-6.9); NEUTROPHILS % 50.3 % (38.7-80.0); PLATELET COUNT 87 x10e3/uL (140-360); RED BLOOD COUNT 2.87 x10e6/uL (4.3-5.7); RED CELL DISTRIBUTION WIDTH 14.3 % (11.7-14.4)
--- NOTE | 2018-10-24 06:51 | NUR ---
Called and spoke with answering service to notify new consult for Dr. Blum. Awaiting on MD call back.
[2018-10-24 06:58] LABS: ANION GAP 10.9 mmol/L (8-16); CALCIUM 7.1 mg/dL (8.4-10.2); CREATININE, SERUM 3.15 mg/dL (0.72-1.25); POTASSIUM 4.9 mmol/L (3.5-5.1)
[2018-10-24] MEDS: INSULIN REGULAR, HUMAN 100 UNIT/1 ML 3ML VIAL SQ SCH ×4 (07:30→21:00)
--- NOTE | 2018-10-24 07:56 | NUR ---
Pt in bed. aox4 and able to verbalize needs. suprapubic catheter in place and draining light yellow clear urine.
[2018-10-24] MEDS: METOCLOPRAMIDE HCL 10 MG TAB PO SCH ×4 (08:20→21:00)
[2018-10-24] MEDS: INSULIN LISPRO 100 UNIT/1 ML 3ML VIAL SQ SCH ×3 (08:20→16:31)
[2018-10-24] MEDS: MAGNESIUM OXIDE 400 MG TAB PO SCH ×2 (08:21→16:32)
[2018-10-24] MEDS: GABAPENTIN 300 MG CAP PO SCH ×3 (08:21→21:00)
[2018-10-24] MEDS: PIPERACILLIN/TAZO 2.25 GM 50 ML IV SCH ×2 (08:21→21:00)
[2018-10-24] MEDS: NIFEDIPINE CR 30 MG TAB PO SCH ×2 (08:22→16:32)
[2018-10-24] MEDS: CALCIUM CARBONATE 500 MG CHEWABLE TABS PO SCH (08:22)
[2018-10-24] MEDS: SODIUM BICARBONATE 650 MG TAB PO SCH ×2 (08:22→16:32)
[2018-10-24] MEDS: SENNOSIDES 8.6 MG TAB PO SCH ×2 (08:22→16:32)
--- NOTE | 2018-10-24 19:05 | NUR ---
BS rounds completed with morning nurse. Pt alert and oriented to name. Sitting up in bed. Denies pain at this time. Call north within reach. Will continue to monitor.
[2018-10-25] VITALS (10 sets, daily range): BP systolic 110–178; BP diastolic 60–103
[2018-10-25] MEDS: MORPHINE SULFATE INJ 4 MG/ML INJ 1ML IV PRN ×6 (01:45→21:15)
[2018-10-25] MEDS: ONDANSETRON HCL INJ 2MG/ML 2ML 2 MG/ML VIAL IV PRN ×4 (01:45→21:15)
--- NOTE | 2018-10-25 03:50 | Progress Note ---
DATE: 10/24/2018 Medicine Progress Note SUBJECTIVE: I am covering for Dr. Donald Potts. The patient is doing well today with no complaints. I did consult with ID as he has multidrug resistant UTI. He does have a chronic suprapubic catheter as well. PHYSICAL EXAMINATION: VITAL SIGNS: He is afebrile. Normotensive. Respiratory rate is good. GENERAL: Not in acute distress. Alert and oriented x3. Cooperative on examination. HEENT: Head is normocephalic and atraumatic. Eyes; pupils are equal, round, and reactive to light bilaterally. Extraocular movements are intact bilaterally. NECK: Supple. Good range of motion throughout. THROAT: No evidence of erythema or exudates in the posterior pharynx. Has poor dentition. PULMONARY: Clear to auscultation bilaterally. No wheezing, rales, or rhonchi. No crackles appreciated. CARDIOVASCULAR: Positive S1 and S2. No murmurs, rubs, or gallops appreciated. ABDOMEN: Soft, nondistended, and nontender to palpation. Bowel sounds present. MUSCULOSKELETAL: Strength is 5/5 throughout. No evidence of any muscle deficits on examination. No weakness appreciated. NEUROLOGIC: Cranial nerves II through XII grossly intact. No evidence of any neurological deficits on exam. SKIN: Intact. Warm to touch. Good cap refill. PSYCHIATRIC: Normal affect and mood. EXTREMITIES: No edema. Good range of motion throughout. LABORATORY DATA: Reviewed and shows a white count of 3.8, hemoglobin 7.9, hematocrit 24, platelets of 87. Chemistry: Sodium 140, potassium 4.9, chloride 107, bicarb 27, anion gap of 10, BUN 37, creatinine 3.15. Renal scan shows loss of renal parenchyma in the left kidney, suspected evidence of moderate thinning of the renal cortex. Significant renal medical disease is also present. Moderate hydronephrosis is present. However, physiological significant obstruction at the UPJ is not suspected, although one of two also in the upper range of normal. Loss of renal parenchyma was greater in the right kidney compared to the left kidney due to the more severe thinning of the renal cortex. This accounts for decreased differential renal function of 29%. Significant medical renal disease was also present. [id number] hydronephrosis is present with physiological significant obstruction of the UPJ is present. IMPRESSION: 1. Complicated urinary tract infection with indwelling Barcenas catheter. 2. Neurogenic bladder with suprapubic catheterization secondary to type 1 diabetes. 3. Acute kidney injury on chronic kidney disease stage 4. 4. Dehydration. PLAN: At this time, urine cultures are noted and ID has been consulted. He is still on IV Zosyn, which we will continue at this time with that same medication, but await for ID final recommendation and adjustments if needed. Vital signs are stable. Renal scan has been reviewed and I read it. I prefer if Urology can discuss this with him. It seems like he has a chronic obstruction seen. Labs are reviewed and stable. MD THOMAS Ramos/MODL /[id number]
--- NOTE | 2018-10-25 07:20 | NUR ---
Rounds completed bedside with morning nurses. Pt denies pain at this time. No acute distress noted.
[2018-10-25] MEDS: INSULIN LISPRO 100 UNIT/1 ML 3ML VIAL SQ SCH ×3 (07:30→16:05)
[2018-10-25] MEDS: INSULIN REGULAR, HUMAN 100 UNIT/1 ML 3ML VIAL SQ SCH ×4 (07:30→21:25)
--- NOTE | 2018-10-25 08:02 | NUR ---
Morning rounding completed. Patient resting in bed, no c/o of pain or signs of distress. Bed locked and in low position, call light placed within reach. Will continue to monitor.
[2018-10-25] MEDS: METOCLOPRAMIDE HCL 10 MG TAB PO SCH ×4 (08:44→21:25)
[2018-10-25] MEDS: CALCIUM CARBONATE 500 MG CHEWABLE TABS PO SCH (08:45)
[2018-10-25] MEDS: SENNOSIDES 8.6 MG TAB PO SCH ×2 (08:45→16:06)
[2018-10-25] MEDS: GABAPENTIN 300 MG CAP PO SCH ×3 (08:45→21:25)
[2018-10-25] MEDS: PIPERACILLIN/TAZO 2.25 GM 50 ML IV SCH ×2 (08:45→21:25)
[2018-10-25] MEDS: MAGNESIUM OXIDE 400 MG TAB PO SCH ×2 (08:45→16:06)
[2018-10-25] MEDS: NIFEDIPINE CR 30 MG TAB PO SCH ×2 (08:45→16:06)
[2018-10-25] MEDS: SODIUM BICARBONATE 650 MG TAB PO SCH ×2 (08:45→16:06)
[2018-10-25] MEDS: HYDRALAZINE HCL 20 MG/ML VIAL IV PRN (11:19)
[2018-10-25] MEDS: PROMETHAZINE 12.5MG/ NACL 0.9% 12.5 MG/50 ML BAG IV PRN (12:34)
--- NOTE | 2018-10-25 17:08 | Progress Note ---
DATE: 10/25/2018 Medicine Progress Note SUBJECTIVE: The patient is doing well today with no complaints. PHYSICAL EXAMINATION: VITAL SIGNS: Temperature 96.4, pulse 91, respiratory rate is 18, blood pressure is elevated at 177/99, pulse ox is 91% on room air. GENERAL: Not in acute distress. Alert and oriented x3. Cooperative on examination. HEENT: Head is normocephalic, atraumatic. Eyes; pupils are equal, round, and reactive to light bilaterally. Extraocular movements are intact bilaterally. Throat, no evidence of erythema or exudates in the posterior pharynx. Has poor dentition. NECK: Supple. Good range of motion throughout. PULMONARY: Clear to auscultation bilaterally. No wheezing, rales, or rhonchi. No crackles appreciated. CARDIOVASCULAR: Positive S1 and S2. No murmurs, rubs, or gallops. ABDOMEN: Soft, nondistended, and nontender to palpation. Bowel sounds present. MUSCULOSKELETAL: Strength is 5/5 throughout. No evidence of any muscle deficits on examination. No weakness appreciated. NEUROLOGIC: Cranial nerves II through XII grossly intact. No evidence of any neurological deficits on exam. SKIN: Intact. Warm to touch. Good cap refill. PSYCHIATRIC: Normal affect and mood. EXTREMITIES: No edema. Good range of motion throughout. LABORATORY DATA: Labs show white count is 3.8, hemoglobin is 7.9, hematocrit is 24, platelets is 87. Chemistry; none today. IMPRESSION: 1. Complicated urinary tract infection with indwelling Barcenas catheter. 2. Neurogenic bladder with suprapubic catheterization secondary to type 1 diabetes. 3. Acute kidney injury on chronic kidney disease stage 4. 4. Dehydration. PLAN: At this time, the patient continues to be on IV Zosyn. ID was consulted to manage accordingly. Vital signs were stable. Renal scan reviewed, but would prefer if Urology would explain it to him as the patient seems to have several questions related to it. Otherwise, we will get labs in the morning and Dr. Potts will be available tomorrow. MD THOMAS Ramos/MODL /[id number]
--- NOTE | 2018-10-25 17:38 | Consultation ---
DATE OF CONSULTATION: REASON FOR CONSULTATION: UTI, multidrug resistant. HISTORY OF PRESENT ILLNESS: This patient who is a very pleasant 38-year-old [place]ian male, well known to me from before, history of chronic kidney disease stage 4, history of neurogenic bladder, suprapubic catheter, multiple admissions for UTI, sepsis, comes in with fever and chills and not doing well. The patient was admitted. He has been in the hospital for the last eight days on antibiotic and currently doing better. The patient does have a history of diabetes mellitus with multiple complication, neuropathy, neurogenic bladder, suprapubic catheter, hypertension, and anemia. He also have history of cataract surgery, cholecystectomy, right knee surgery. ALLERGIES: NKA. SOCIAL HISTORY: There is no smoking, drug abuse, or alcohol abuse. FAMILY HISTORY: Otherwise unremarkable. The patient was admitted on October 17. He had Pseudomonas aeruginosa, Staph aureus, Enterococcus on October 20. He had Pseudomonas aeruginosa, his sensitivity pattern reviewed. The patient is telling me since he came here he is feeling better. LABORATORY DATA: White count is 3.8, hemoglobin 7.9. His sodium of 140, potassium of 4.9, and creatinine of 3.15. MEDICATIONS: The patient is currently on morphine, Reglan, Zofran. He was on Zosyn, Tums, gabapentin. His temperature since admission reviewed. PHYSICAL EXAMINATION: GENERAL: He is currently alert, oriented, does not seem to be in acute distress. VITAL SIGNS: Stable. Currently afebrile. HEENT: Not icteric. NECK: Supple. CHEST: Clear. HEART: S1, S2. No murmur. ABDOMEN: Soft. Bowel sounds present. No tenderness. EXTREMITIES: No edema. SKIN: There is no rash. IMPRESSION: 1. Bacteriuria colonization or multidrug resistant. Clinically, seems to be doing better at present time. He has no complaints. He has been on antibiotic for eight days now and just finish 14 days. There is no need to recheck the urine culture. 2. Diabetes. 3. Neuropathy. 4. Chronic kidney disease. 5. We will discuss with Renal and the primary care. MD PIPPA Steel/NOREEN /[id number]
--- NOTE | 2018-10-25 19:17 | NUR ---
Bedside report given to night nurse. Patient resting in bed, in stable condition. No signs of distress at this time.
--- NOTE | 2018-10-25 21:25 | NUR ---
PATIENT IS IN STABLE CONDITION, NO SIGNS OF DISTRESS NOTED. PATIENT COMPLAINS OF PAIN IN LOWER BACK AT 7, AND WAS MEDICATED ORDERED. BED IS LOCKED AND IN LOWEST POSITION, CALL LIGHT WITHIN EASY REACH, WILL CONTINUE TO MONITOR.
[2018-10-26] VITALS (8 sets, daily range): BP systolic 121–171; BP diastolic 76–95
--- NOTE | 2018-10-26 01:30 | NUR ---
PATIENT AMBULATING UP AND DOWN THE HALLS VIA AMBULATORY DEVICE. CONTINUING TO MONITOR.
--- NOTE | 2018-10-26 01:45 | NUR ---
PATIENT HAS RETURNED TO ROOM, NO DISTRESS NOTED.
[2018-10-26] MEDS: ONDANSETRON HCL INJ 2MG/ML 2ML 2 MG/ML VIAL IV PRN ×5 (01:54→20:55)
[2018-10-26] MEDS: MORPHINE SULFATE INJ 4 MG/ML INJ 1ML IV PRN ×5 (01:54→20:55)
[2018-10-26 06:11] LABS: BASOPHILS % 0.4 % (0.0-1.0); EOSINOPHILS # (AUTO) 0.2 (0.0-0.4); HEMATOCRIT 24.6 % (38.2-49.6); HEMOGLOBIN 7.7 g/dL (14.0-18.0); LYMPHOCYTES # (AUTO) 1.4 (1.0-3.2); LYMPHOCYTES % 28.2 % (18.0-39.1); MEAN CORPUSCULAR HEMOGLOBIN 27.1 pg (28-32); MEAN CORPUSCULAR HGB CONC 31.3 g/dL (31-35); MEAN CORPUSCULAR VOLUME 86.6 fL (81-99); MONOCYTES # (AUTO) 0.3 (0.2-0.8); MONOCYTES % 5.8 % (4.4-11.3); NEUTROPHILS # (AUTO) 3.1 (2.1-6.9); NEUTROPHILS % 61.6 % (38.7-80.0); PLATELET COUNT 78 x10e3/uL (140-360); RED BLOOD COUNT 2.84 x10e6/uL (4.3-5.7); RED CELL DISTRIBUTION WIDTH 14.7 % (11.7-14.4)
[2018-10-26 06:32] LABS: ANION GAP 14.2 mmol/L (8-16); CALCIUM 7.6 mg/dL (8.4-10.2); CREATININE, SERUM 3.6 mg/dL (0.72-1.25); POTASSIUM 5.2 mmol/L (3.5-5.1)
--- NOTE | 2018-10-26 07:21 | NUR ---
Received bedside report from night nurse. Patient resting in bed, no signs of distress at this time. Reports pain in his lower back, but says he will take PRN pain and nausea medication after breakfast. Bed locked and in low position, call light placed within reach. Will continue to monitor.
[2018-10-26] MEDS: INSULIN REGULAR, HUMAN 100 UNIT/1 ML 3ML VIAL SQ SCH ×4 (07:30→20:54)
[2018-10-26] MEDS: PIPERACILLIN/TAZO 2.25 GM 50 ML IV SCH ×2 (08:51→20:53)
[2018-10-26] MEDS: EPOETIN ALFA 10000 UNIT/ML VIAL SC SCH (08:56)
[2018-10-26] MEDS: METOCLOPRAMIDE HCL 10 MG TAB PO SCH ×4 (08:59→20:53)
[2018-10-26] MEDS: SODIUM BICARBONATE 650 MG TAB PO SCH ×2 (08:59→17:02)
[2018-10-26] MEDS: CALCIUM CARBONATE 500 MG CHEWABLE TABS PO SCH (08:59)
[2018-10-26] MEDS: GABAPENTIN 300 MG CAP PO SCH ×3 (08:59→20:53)
[2018-10-26] MEDS: NIFEDIPINE CR 30 MG TAB PO SCH ×2 (08:59→17:37)
[2018-10-26] MEDS: SENNOSIDES 8.6 MG TAB PO SCH ×2 (08:59→17:02)
[2018-10-26] MEDS: MAGNESIUM OXIDE 400 MG TAB PO SCH ×2 (08:59→17:02)
[2018-10-26] MEDS: INSULIN LISPRO 100 UNIT/1 ML 3ML VIAL SQ SCH ×3 (09:00→17:02)
[2018-10-26] MEDS ORDERED: LACTULOSE SYRUP 20 GM/30 ML UDC PO ONE (11:00)
--- NOTE | 2018-10-26 12:26 | NUR ---
PT DISCUSSED IN MDR. PT WILL NEED 5 MORE DA[address] OF ANTIBIOTICS. DR. LLOYD WILL DETERMINE IF HOME ON PO OR IV ABX. WILL AWAIT ORDER.
[2018-10-26] MEDS ORDERED: SOD POLYSTYRENE SULFONATE SUSP 15 GM/60 ML BTL PO ONE (17:30)
--- NOTE | 2018-10-26 19:15 | NUR ---
patient received awake, alert, lying quietly in bed. no c/o pain noted. pm assessment complete. patient instructed to call for assistance when needed.
--- NOTE | 2018-10-26 19:17 | NUR ---
Bedside report given to night nurse. Patient resting in bed, in stable condition. All safety measures in place.
--- NOTE | 2018-10-26 20:55 | NUR ---
patient medicated with morphine 4mg and zofran 4mg ivp for c/o lower back pain 09/01 at this time per patients request.
[2018-10-27] VITALS (7 sets, daily range): BP systolic 129–157; BP diastolic 80–97
[2018-10-27] MEDS: ONDANSETRON HCL INJ 2MG/ML 2ML 2 MG/ML VIAL IV PRN ×5 (01:08→22:16)
[2018-10-27] MEDS: MORPHINE SULFATE INJ 4 MG/ML INJ 1ML IV PRN ×5 (01:08→22:16)
--- NOTE | 2018-10-27 01:08 | NUR ---
patient medicated with morphine 4mg and zofran 4mg ivp for c/o lower back pain 09/01 at this time per patients request.
--- NOTE | 2018-10-27 05:26 | NUR ---
patient medicated with morphine 4mg and zofran 4mg ivp for c/o lower back pain 09/01 at this time per patients request.
[2018-10-27 06:22] LABS: ANION GAP 15.3 mmol/L (8-16); CALCIUM 7.6 mg/dL (8.4-10.2); CREATININE, SERUM 3.68 mg/dL (0.72-1.25); POTASSIUM 5.3 mmol/L (3.5-5.1)
[2018-10-27] MEDS: INSULIN REGULAR, HUMAN 100 UNIT/1 ML 3ML VIAL SQ SCH ×4 (07:30→21:00)
[2018-10-27] MEDS: INSULIN LISPRO 100 UNIT/1 ML 3ML VIAL SQ SCH ×3 (07:30→17:09)
[2018-10-27] MEDS: SENNOSIDES 8.6 MG TAB PO SCH ×2 (08:11→17:01)
[2018-10-27] MEDS: SODIUM BICARBONATE 650 MG TAB PO SCH ×2 (08:11→17:01)
[2018-10-27] MEDS: PIPERACILLIN/TAZO 2.25 GM 50 ML IV SCH ×2 (08:11→21:48)
[2018-10-27] MEDS: METOCLOPRAMIDE HCL 10 MG TAB PO SCH ×4 (08:11→21:49)
[2018-10-27] MEDS: NIFEDIPINE CR 30 MG TAB PO SCH ×2 (08:11→17:01)
[2018-10-27] MEDS: MAGNESIUM OXIDE 400 MG TAB PO SCH ×2 (08:11→17:00)
[2018-10-27] MEDS: CALCIUM CARBONATE 500 MG CHEWABLE TABS PO SCH (08:12)
[2018-10-27] MEDS: GABAPENTIN 300 MG CAP PO SCH (08:12)
--- NOTE | 2018-10-27 11:10 | NUR ---
Pt c/o vomiting. Stated that zofran medication not effective. Nurse witnessed pt spitting up into trash can. Will follow through with alternative medication.
[2018-10-27] MEDS: PROMETHAZINE 12.5MG/ NACL 0.9% 12.5 MG/50 ML BAG IV PRN (11:17)
[2018-10-27] MEDS ORDERED: SOD POLYSTYRENE SULFONATE SUSP 15 GM/60 ML BTL PO ONE (12:00)
--- NOTE | 2018-10-27 14:02 | NUR ---
Nutrition Follow-up Note RD Recommendation for Physician: - Continue current diet as ordered - RD visited pt for diet education on 10/18 and 10/22, no other question during todays visit Plan of Care: RD following, monitoring for tolerance and adequacy, diet education Nutrition reason for involvement: MD consult renal diet, no K Primary Diagnose(s): acute renal failure, dehydration PMH: diabetes type 1 on insulin therapy, neurogenic urinary bladder and chronic kidney disease, peripheral vascular disease, hypertension, dyslipidemia. Multiple lower extremity surgery due to trauma. Ht: 71 in Wt: 219 lb BMI: 30.5 kg/m2 IBW: [address] Assessment: 10/27: K has elevated. Visited pt in the room. Pt were complaining of nausea and vomiting today. PCT recorded 50-75% meal intake in the last couple days. LBM 10/26. Pt denied any chewing or swallowing difficulty. Pt acknowledged prior diet education. Pt denied any question during my time of visit. 10/22: RN called for low potassium diet education. Visited pt in the room. Pt was eating fair. No GI complains reported. Provided handout and explanation on high vs low potassium foods. All questions have been answered. 10/18: 38 YOM admitted for acute renal failure with PMH listed above. Pt reports that his appetite has been somewhat poor this past week, and the pt stated that his N/V has been improving but stated he had a loose BM this morning. Pt denied chewing or swallowing issues as well as any food allergies. Pt is getting a CT of the abdomen. Pt was educated on the renal, low Na and T1DM diet and given educational handouts. Chart reviewed. Labs and meds reviewed. POC GM: 127. Pt is on lispro and regular. Pt was 229 lbs in May 2018, suggesting a 4.2 % weight loss in 4 months. Pt had no other questions or concerns. Will continue to monitor. Current Diet: renal diabetic diet Malnutrition Evaluation (10/18) The patient does not meet criteria for a specified degree of malnutrition at this time. Will re-evaluate at follow-up as appropriate. Diet Education Needs Assessment: Diet education indicated, pt agreeable. Learner(s): pt Barriers: none Cultural/Language Modifications: none Readiness: acceptance Method: discussion, handout, teach back Topics: T1DM, Renal, Low Na diets, High vs. Low potassium foods Understanding/Compliance: verbalized understanding, anticipate good compliance Nutrition Care Level: low Signed by Lupe Germain, MS, RD, LD
--- NOTE | 2018-10-27 19:30 | NUR ---
IV on Left hand (22 gauge) more than 3 days old. IV site appear clean and dry. No sign of infiltration noted. Pt wishes to keep current IV and does not want to be stuck for new IV at this time.
[2018-10-28] VITALS (8 sets, daily range): BP systolic 126–159; BP diastolic 77–108
[2018-10-28] MEDS: MORPHINE SULFATE INJ 4 MG/ML INJ 1ML IV PRN ×4 (03:00→19:31)
[2018-10-28] MEDS: ONDANSETRON HCL INJ 2MG/ML 2ML 2 MG/ML VIAL IV PRN ×3 (03:00→19:32)
[2018-10-28 06:20] LABS: ANION GAP 14.5 mmol/L (8-16); CALCIUM 7.4 mg/dL (8.4-10.2); CREATININE, SERUM 3.7 mg/dL (0.72-1.25); POTASSIUM 5.5 mmol/L (3.5-5.1)
[2018-10-28] MEDS: METOCLOPRAMIDE HCL 10 MG TAB PO SCH ×4 (06:41→21:00)
[2018-10-28] MEDS: INSULIN REGULAR, HUMAN 100 UNIT/1 ML 3ML VIAL SQ SCH ×4 (07:30→21:00)
[2018-10-28] MEDS: INSULIN LISPRO 100 UNIT/1 ML 3ML VIAL SQ SCH ×3 (07:30→16:30)
[2018-10-28] MEDS ORDERED: SOD POLYSTYRENE SULFONATE SUSP 15 GM/60 ML BTL PO ONE (08:30)
[2018-10-28] MEDS: SODIUM BICARBONATE 650 MG TAB PO SCH ×2 (09:05→18:08)
[2018-10-28] MEDS: SENNOSIDES 8.6 MG TAB PO SCH ×2 (09:05→18:08)
[2018-10-28] MEDS: EPOETIN ALFA 10000 UNIT/ML VIAL SC SCH (09:05)
[2018-10-28] MEDS: MAGNESIUM OXIDE 400 MG TAB PO SCH ×2 (09:05→18:07)
[2018-10-28] MEDS: CALCIUM CARBONATE 500 MG CHEWABLE TABS PO SCH (09:05)
[2018-10-28] MEDS: NIFEDIPINE CR 30 MG TAB PO SCH ×2 (09:05→18:08)
[2018-10-28] MEDS: PIPERACILLIN/TAZO 2.25 GM 50 ML IV SCH ×2 (09:05→21:00)
[2018-10-28] MEDS: PROMETHAZINE 12.5MG/ NACL 0.9% 12.5 MG/50 ML BAG IV PRN (14:37)
[2018-10-28 15:48] LABS: ANION GAP 14.6 mmol/L (8-16); CALCIUM 7.4 mg/dL (8.4-10.2); CREATININE, SERUM 3.77 mg/dL (0.72-1.25)
[2018-10-28 15:51] LABS: POTASSIUM 5.6 mmol/L (3.5-5.1)
[2018-10-28] MEDS ORDERED: FUROSEMIDE INJ 10 MG/ML 2 ML VIAL IV ONE (17:30)
[2018-10-28] MEDS ORDERED: DEXTROSE 5%/0.9% SOD CHL 1,000 ML IV ONE (17:45)
[2018-10-28] MEDS ORDERED: LACTULOSE SYRUP 20 GM/30 ML UDC PO ONE (18:00)
[2018-10-28] MEDS ORDERED: FUROSEMIDE 20 MG TAB PO ONE (18:00)
--- NOTE | 2018-10-28 18:12 | NUR ---
made aware of lab results per request. New orders received at this time.
--- NOTE | 2018-10-28 19:43 | NUR ---
RECEIVED PT N BED AOX3 .PT C/O PAIN AND .LEFT HAND NS AT 75 CC/HR IS GOING PT HAS SUBRAPBIC CATHETER INTACT DRAINING CLEAR YELLOW URINE .CALL LIGHT WITH IN REACH CONTINUE TO MONITOR
[2018-10-28] MEDS ORDERED: FUROSEMIDE INJ 10 MG/ML 4 ML VIAL IV ONE ×2 (23:00)
[2018-10-29] MEDS: METOCLOPRAMIDE HCL 10 MG TAB PO SCH
[2018-10-29 04:00] VITALS: BP 157/103
[2018-10-29] MEDS: MORPHINE SULFATE INJ 4 MG/ML INJ 1ML IV PRN ×2 (04:10)
[2018-10-29] MEDS: ONDANSETRON HCL INJ 2MG/ML 2ML 2 MG/ML VIAL IV PRN ×2 (04:10)
--- NOTE | 2018-10-29 05:46 | NUR ---
PT C/O PAIN AND GIVEN ORDERED PAIN MEDICATION .FAMILY AT THE BEDSIDE AND CALL LIGHT WITH IN REACH .CONTINUE TO MONITOR
[2018-10-29 06:29] LABS: BASOPHILS % 0.4 % (0.0-1.0); EOSINOPHILS # (AUTO) 0.1 (0.0-0.4); EOSINOPHILS % 2.7 % (0.0-6.0); HEMATOCRIT 30.4 % (38.2-49.6); HEMOGLOBIN 9.8 g/dL (14.0-18.0); LYMPHOCYTES # (AUTO) 1.7 (1.0-3.2); LYMPHOCYTES % 33.7 % (18.0-39.1); MEAN CORPUSCULAR HEMOGLOBIN 27.5 pg (28-32); MEAN CORPUSCULAR HGB CONC 32.2 g/dL (31-35); MEAN CORPUSCULAR VOLUME 85.4 fL (81-99); MONOCYTES # (AUTO) 0.3 (0.2-0.8); MONOCYTES % 6.2 % (4.4-11.3); NEUTROPHILS # (AUTO) 2.9 (2.1-6.9); NEUTROPHILS % 56.2 % (38.7-80.0); PLATELET COUNT 103 x10e3/uL (140-360); RED BLOOD COUNT 3.56 x10e6/uL (4.3-5.7)
[2018-10-29 06:44] LABS: ANION GAP 15.5 mmol/L (8-16); CALCIUM 8.2 mg/dL (8.4-10.2); CREATININE, SERUM 3.71 mg/dL (0.72-1.25); POTASSIUM 4.5 mmol/L (3.5-5.1)
--- NOTE | 2018-10-29 07:10 | NUR ---
BEDSIDE REPORT GIVEN TO THE ONCOMING NURSE
[2018-10-29] MEDS: INSULIN REGULAR, HUMAN 100 UNIT/1 ML 3ML VIAL SQ SCH (07:30)
[2018-10-29 07:42] VITALS: BP 154/89
[2018-10-29] MEDS ORDERED: FUROSEMIDE INJ 10 MG/ML 2 ML VIAL IV SCH (09:00)
[2018-10-29] MEDS ORDERED: FUROSEMIDE 20 MG TAB PO SCH (09:00)
[2018-10-29] MEDS ORDERED: REGLAN10 MG PO (09:41)
[2018-10-29] MEDS ORDERED: SENOKOT-S TABL1 EACH (09:43)
[2018-10-29] MEDS ORDERED: LACTULOSE20 GM/30 M PO (09:44)
--- NOTE | 2018-10-30 07:56 | Discharge Summary ---
CONSULTANTS: 1. Dr. Castro Jalloh. 2. Dr. Lew Karimi. 3. Dr. Ciro Blum. FINAL DIAGNOSES: 1. Complicated urinary tract infection associated with suprapubic indwelling Barcenas catheter. 2. Multiple bacterial infection including Pseudomonas aeruginosa, Staphylococcus aureus and Enterococcus faecalis. 3. Acute kidney injury secondary to obstruction on chronic kidney disease stage 4. 4. Diabetes type 1, complicated neurogenic urinary bladder. 5. Bilateral hydronephrosis, medical renal disease chronically. 6. Persistent hyperkalemia, now resolved. 7. Constipation. SUMMARY: [id number] came in with acute kidney failure associated with chronic kidney disease stage 4. The patient was dehydrated, on Barcenas catheter with complicated urinary tract infection and multi-bacterial infection. The patient has diabetes type 1. He is on insulin therapy. He has also has a complication of diabetes type 1 including neuropathy and neurogenic urinary bladder. He has also has kidney problem, medical kidney disease associated with bilateral hydronephrosis as well. This has been going on for quite some time. The patient was treated with antibiotics. He is doing much better. The patient is stable. The patient will go home today. Continue with his home medications. He will start on Reglan 10 mg q.a.c. at bedtime for his persistent nausea. Lactulose as needed for constipation and he will resume his home medication with medication veltassa 8.4 g on a daily basis. The patient's potassium today is 4.5, BUN and creatinine of 29 and 3.7. The patient's blood sugar is stable hemoglobin and hematocrit of 9.8 and 30.4. He did receive iron infusion and Procrit. The patient is a [employer]. No blood transfusion. No blood product. The patient is stable and discharged home today. Resume home medication and Reglan 10 mg before meals and at bedtime for the gastroparesis secondary to complication of diabetes type 1 and also continue with his other home medications. MD SADA Haywood/MODL /[id number]
== END 2018-10-29 10:57 | disposition home or self-care (01) | DRG 699 ==
LOC: ER 00:45 → ERHOLD 02:37 → MED/SURG 03:31 → MED/SURG3 10-18 12:06 → MED/SURG 10-26 17:34 → MED/SURG3 10-26 17:35
PROVIDERS: ADMIT Internal Medicine; ATTEND Internal Medicine
DX: T83.510A Infection and inflammatory reaction due to cystostomy catheter, initial encounter (principal); N17.9 Acute kidney failure, unspecified; N18.4 Chronic kidney disease, stage 4 (severe); E87.2 Acidosis; E87.5 Hyperkalemia; N31.9 Neuromuscular dysfunction of bladder, unspecified; D64.9 Anemia, unspecified; Z87.440 Personal history of urinary (tract) infections; I12.9 Hypertensive chronic kidney disease with stage 1 through stage 4 chronic kidney disease, or unspecified chronic kidney disease; Z91.041 Radiographic dye allergy status; Z83.3 Family history of diabetes mellitus; Z82.49 Family history of ischemic heart disease and other diseases of the circulatory system; E10.22 Type 1 diabetes mellitus with diabetic chronic kidney disease; Z79.4 Long term (current) use of insulin; E86.0 Dehydration; D63.1 Anemia in chronic kidney disease; E10.42 Type 1 diabetes mellitus with diabetic polyneuropathy; Z84.1 Family history of disorders of kidney and ureter; B96.5 Pseudomonas (aeruginosa) (mallei) (pseudomallei) as the cause of diseases classified elsewhere; B95.61 Methicillin susceptible Staphylococcus aureus infection as the cause of diseases classified elsewhere; B95.2 Enterococcus as the cause of diseases classified elsewhere; N47.1 Phimosis; R33.9 Retention of urine, unspecified; R31.29 Other microscopic hematuria; D69.6 Thrombocytopenia, unspecified; E87.6 Hypokalemia
CPT/HCPCS: 36415; 74176; 78708; 80048; 80053; 81001; 82270; 82728; 82948; 83540; 83735; 84100; 84466; 85025; 87086; 87186; 96374; 99284; A9562; J0360; J0610; J0692; J1756; J1817; J1940; J2185; J2270; J2405; J2543; J2550; J7030; J7042; Q4081

== ENCOUNTER 2018-10-30 22:26 | Inpatient (IN) | payer BC ==
[~2018-10-30] VITALS: Ht 180.3 cm; Wt 90.5 kg
[~2018-10-30 22:26] MED LIST changes: +LACTULOSE20 GM/30 M PO; +LASIX40 MG PO; +MAGOX 400400 MG PO; +NIFEDIPINE ER60 M1 PO; +SENOKOT-S TABL1 EACH
--- OUTSIDE RECORDS SUMMARY | 2018-10-30 22:30 | XMS REPORT | Continuity of Care Document ---
Author Author [employer] Organization [employer] 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 Active 06/17/2017 [facility] Acute renal failure Active 08/09/2015 Problem 05/07/2018 [facility] Dehydration Active 08/09/2015 Problem 05/07/2018 [facility] Diarrhea Active 08/09/2015 Problem 05/07/2018 [facility] GI bleed Active 08/09/2015 Problem 05/07/2018 [facility] Hyperglycemia Active 08/09/2015 Problem 05/07/2018 [facility] Renal insufficiency Active 04/15/2015 Problem 09/01/2017 [facility] Sepsis Active 04/15/2015 Problem 05/07/2018 [facility] Renal insufficiency Active 04/15/2015 Problem 05/07/2018 [facility] Bacteremia Active 03/30/2015 Problem 05/07/2018 [facility] Prostatitis Active 03/30/2015 Problem 05/07/2018 [facility] Urinary tract infection Active 03/30/2015 Problem 05/07/2018 [facility] Pyelonephritis Active 02/10/2015 Problem 05/07/2018 [facility] Acute renal insufficiency Active Problem 05/07/2018 [facility] Bladder wall thickening Active Problem 05/07/2018 [facility] Fever Active Problem 05/07/2018 [facility] Hydroureteronephrosis Active Problem 05/07/2018 [facility] Hypomagnesemia Active Problem 05/07/2018 [facility] Indwelling catheter present on admission Active Problem 05/07/2018 [facility] Obstructive uropathy Active Problem 05/07/2018 [facility] Displacement of ureteral stent Active Problem 09/01/2017 [facility] Displacement of ureteral stent Active Problem 05/07/2018 [facility] Vomiting Active Problem 05/07/2018 [facility] Medications Medication Details Route Status Patient Instructions Ordering Provider Order Date Source Amlodipine Besylate 10 Mg Tablet, 10 Mg Oral Daily Active 05/05/2018 [facility] Metoprolol Tartrate 25 Mg Tablet, 25 Mg Oral Twice A Day Active 05/05/2018 [facility] Ciprofloxacin Hcl (Cipro) 500 Mg Tablet, 500 Mg Oral Daily Active 08/29/2017 [facility] Doxycycline Hyclate 100 Mg Capsule, 100 Mg Oral Twice A Day Active 08/29/2017 [facility] Fluconazole 100 Mg Tablet, 200 Mg Oral Daily Active 08/29/2017 [facility] Insulin Detemir (Levemir) 100 Unit/1 Ml Vial, 20 Units Sub-Q Bedtime Active 08/29/2017 [facility] Oxybutynin Chloride (Oxybutynin Chloride Er) 5 Mg Tab.er.24, 15 Mg Oral Daily Active 08/29/2017 [facility] Doxycycline Hyclate 100 Mg Capsule, 100 Mg Oral Twice A Day Active 08/29/2017 [facility] Fluconazole 100 Mg Tablet, 200 Mg Oral Daily Active 08/29/2017 [facility] Insulin Detemir (Levemir) 100 Unit/1 Ml Vial, 20 Units Sub-Q Bedtime Active 08/29/2017 [facility] Oxybutynin Chloride (Oxybutynin Chloride Er) 5 Mg Tab.er.24, 15 Mg Oral Daily Active 08/29/2017 [facility] Cephalexin 500 Mg Capsule, 500 Mg Oral Four Times Daily Active 06/04/2016 [facility] Hydrocodone Bit/Acetaminophen ([place] 5-325 Tablet) 1 Each Tablet, 1 Tab Oral Every 6 Hours as needed for Pain Active 06/04/2016 [facility] Promethazine Hcl 25 Mg Tablet, 25 Mg Oral Every 4 Hours Active 06/04/2016 [facility] Tramadol Hcl (Ultram) 50 Mg Tablet, 1-2 Tab Oral Every 6 Hours as needed for Pain Active 06/04/2016 [facility] Cephalexin 500 Mg Capsule, 500 Mg Oral Four Times Daily Active 06/04/2016 [facility] Hydrocodone Bit/Acetaminophen ([place] 5-325 Tablet) 1 Each Tablet, 1 Tab Oral Every 6 Hours as needed for Pain Active 06/04/2016 [facility] Promethazine Hcl 25 Mg Tablet, 25 Mg Oral Every 4 Hours Active 06/04/2016 [facility] Fluticasone Propionate 16 Gm [place].susp, 1 Twice A Day Active 08/08/2015 [facility] Meropenem (Merrem) 500 Mg Inj, 500 Mg Intraven Every 8 Hours Active 08/08/2015 [facility] Metoclopramide Hcl (Reglan) 10 Mg Tablet, 10 Mg Before Meals And At Bedtime Active 08/08/2015 [facility] Pantoprazole Sodium (Protonix) 40 Mg Tablet.dr, 40 Mg Oral Every Morning Active 08/08/2015 [facility] Fluticasone Propionate 16 Gm [place].susp, 1 Twice A Day Active 08/08/2015 [facility] Metoclopramide Hcl (Reglan) 10 Mg Tablet, 10 Mg Before Meals And At Bedtime Active 08/08/2015 [facility] Amoxicillin/Potassium Clav (Augmentin 500-125 Tablet) 1 Each Tablet, 500 Mg Oral Twice A Day Active 04/11/2015 [facility] Fluconazole (Diflucan) 100 Mg Tablet, Mg Oral Daily Active 04/11/2015 [facility] Amoxicillin/Potassium Clav (Augmentin 500-125 Tablet) 1 Each Tablet, 500 Mg Oral Twice A Day Active 04/11/2015 [facility] Fluconazole (Diflucan) 100 Mg Tablet, Mg Oral Daily Active 04/11/2015 [facility] Tamsulosin Hcl (Flomax*) 0.4 Mg Cap, 0.4 Mg Oral Bedtime Active 03/30/2015 [facility] Tamsulosin Hcl (Flomax*) 0.4 Mg Cap, 0.4 Mg Oral Bedtime Active 03/30/2015 [facility] Acetaminophen With Codeine (Tylenol With Codeine #3 Tablet) 1 Each Tablet, 300 Mg Oral Every 6 Hours as needed for Pain Active 03/08/2015 [facility] Senna Fruit/Conc/Doc Sod/Bisa (Senna-S Tablet) 1 Ea Tab, 1 Each Oral Bedtime Active 03/08/2015 [facility] Acetaminophen With Codeine (Tylenol With Codeine #3 Tablet) 1 Each Tablet, 300 Mg Oral Every 6 Hours as needed for Pain Active 03/08/2015 [facility] Senna Fruit/Conc/Doc Sod/Bisa (Senna-S Tablet) 1 Ea Tab, 1 Each Oral Bedtime Active 03/08/2015 [facility] Hydrocodone Bit/Acetaminophen ([place] 5-325 Tablet) 1 Each Tablet, Tab Oral Daily Active 02/22/2015 [facility] Insulin Npl/Insulin Lispro (Humalog Mix 50-50 Kwikpen) 100 Unit/1 Ml Insuln.pen, Sub-Q 15 Units Every A.m. Active 02/22/2015 [facility] Lisinopril 10 Mg Tablet, Tab Oral Daily Active 02/22/2015 [facility] Amoxicillin/Potassium Clav (Augmentin 875-125 Tablet) 1 Each Tablet, Tab Oral Twice A Day Active 02/11/2015 [facility] Cephalexin Monohydrate (Keflex) 500 Mg Capsule, 500 Mg Oral Three Times A Day Active 02/11/2015 [facility] Docusate Sodium (Colace) 100 Mg Cap, Cap Oral Daily Active 02/11/2015 [facility] Insulin Glargine,Hum.rec.anlog (Lantus) 100 Unit/1 Ml Cartridge, Sub-Q 45 Units At Bedtime Active 02/11/2015 [facility] Metformin Hcl 500 Mg Tablet, 500 Mg Oral Twice Daily Active 02/11/2015 [facility] Amlodipine Besylate 10 Mg Tablet Daily Active [facility] Gabapentin 300 Mg Capsule Three Times A Day Active [facility] Insulin Aspart (Novolog) 100 Unit/1 Ml Cartridge Before Meals Active [facility] Metoprolol Tartrate 25 Mg Tablet Twice A Day Active [facility] Gabapentin 300 Mg Capsule Twice A Day Active [facility] Insulin Aspart (Novolog) 100 Unit/1 Ml Cartridge Before Meals Active [facility] Nifedipine (Nifedipine Er) 30 Mg Tab.er.24 Daily Active [facility] Vyzulta Daily Active [facility] Allergies, Adverse Reactions, Alerts Substance Category Reaction Severity Reaction type Status Date Reported Comments Source PO CONTRAST Mild Allergy to Substance Active 07/06/2007 [facility] Iodinated Contrast- Oral and IV Dye Unknown Allergy to Substance Active 05/03/2018 [facility] No Known Medication Allergies Assertion Drug allergy [facility] Immunizations No Data Provided for This Section Results Order Name Results Value Reference Range Date Interpretation Comments Source Capillary blood glucose measurement by glucometer (mass/volume) 72 70 - 120 05/07/2018 [facility] Serum or plasma sodium measurement (moles/volume) 136 136 - 145 05/06/2018 [facility] Serum or plasma potassium measurement (moles/volume) 5.2 3.5 - 5.1 05/06/2018 [facility] Serum or plasma chloride measurement (moles/volume) 111 98 - 107 05/06/2018 [facility] Serum or plasma carbon dioxide, total measurement (moles/volume) 21 22 - 29 05/06/2018 [facility] Serum or plasma anion gap 9.2 8 - 16 05/06/2018 [facility] Serum or plasma urea nitrogen measurement (mass/volume) 26 7 - 26 05/06/2018 [facility] Serum or plasma creatinine measurement (mass/volume) 2.22 0.72 - 1.25 05/06/2018 [facility] Serum or plasma urea nitrogen/creatinine mass ratio 12 6 - 25 05/06/2018 [facility] Estimated glomerular filtration rate (GFR) determination 33 60 05/06/2018 [facility] Glucose measurement 144 74 - 118 05/06/2018 [facility] Serum or plasma calcium measurement (mass/volume) 6.5 8.4 - 10.2 05/06/2018 [facility] Blood leukocytes automated count (number/volume) 3.55 4.8 - 10.8 05/06/2018 [facility] Blood erythrocytes automated count (number/volume) 3.25 4.3 - 5.7 05/06/2018 [facility] Blood hemoglobin measurement (moles/volume) 8.6 14.0 - 18.0 05/06/2018 [facility] Automated blood hematocrit (volume fraction) 27.2 38.2 - 49.6 05/06/2018 [facility] Automated erythrocyte mean corpuscular volume 83.7 81 - 99 05/06/2018 [facility] Automated erythrocyte mean corpuscular hemoglobin (mass per erythrocyte) 26.5 28 - 32 05/06/2018 [facility] Automated erythrocyte mean corpuscular hemoglobin concentration measurement (mass/volume) 31.6 31 - 35 05/06/2018 [facility] RDW BldCo-Rto 14.6 11.7 - 14.4 05/06/2018 [facility] Automated blood platelet count (count/volume) 113 140 - 360 05/06/2018 [facility] Automated blood segmented neutrophil count as percentage of total leukocytes 59.6 38.7 - 80.0 05/06/2018 [facility] Automated blood lymphocyte count as percentage ot total leukocytes 24.8 18.0 - 39.1 05/06/2018 [facility] Automated blood monocyte count as percentage of total leukocytes 8.5 4.4 - 11.3 05/06/2018 [facility] Automated blood eosinophil count as percentage of total leukocytes 5.1 0.0 - 6.0 05/06/2018 [facility] Automated blood basophil count as percentage of total leukocytes 0.6 0.0 - 1.0 05/06/2018 [facility] IM GRANULOCYTES % 1.4 0.0 - 1.0 05/06/2018 [facility] Automated blood neutrophil count 2.1 2.1 - 6.9 05/06/2018 [facility] Blood lymphocytes count (number/volume) 0.9 1.0 - 3.2 05/06/2018 [facility] Blood monocytes automated count (number/volume) 0.3 0.2 - 0.8 05/06/2018 [facility] Automated blood eosinophil count 0.2 0.0 - 0.4 05/06/2018 [facility] Automated blood basophil count (count/volume) 0.0 0.0 - 0.1 05/06/2018 [facility] Absolute Immature Granulocyte (auto 0.05 0 - 0.1 05/06/2018 [facility] Serum or plasma total bilirubin measurement (mass/volume) 0.2 0.2 - 1.2 05/05/2018 [facility] Aspartate Amino Transf (AST/SGOT) 31 5 - 34 05/05/2018 [facility] Serum or plasma alanine aminotransferase measurement (enzymatic activity/volume) 44 0 - 55 05/05/2018 [facility] Serum or plasma protein measurement (mass/volume) 6.6 6.5 - 8.1 05/05/2018 [facility] Serum or plasma albumin measurement (mass/volume) 2.4 3.5 - 5.0 05/05/2018 [facility] Plasma globulin measurement (mass/volume) 4.2 2.3 - 3.5 05/05/2018 [facility] Serum or plasma albumin/globulin mass ratio 0.6 0.8 - 2.0 05/05/2018 [facility] Serum or plasma alkaline phosphatase measurement (enzymatic activity/volume) 272 40 - 150 05/05/2018 [facility] Urine color determination YELLOW YELLOW 05/03/2018 [facility] Urine clarity CLOUDY CLEAR 05/03/2018 [facility] Specific gravity of Urine by Test strip 1.025 1.010 - 1.025 05/03/2018 [facility] Urine pH measurement by automated test strip 6 5 - 7 05/03/2018 [facility] Urine leukocyte esterase detection by dipstick 2+ NEGATIVE 05/03/2018 [facility] Urine nitrite detection POSITIVE NEGATIVE 05/03/2018 [facility] Urine protein measurement by test strip (mass/volume) 3+ NEGATIVE 05/03/2018 [facility] Urine glucose detection 1+ NEGATIVE 05/03/2018 [facility] Urine ketones detection by automated test strip NEGATIVE NEGATIVE 05/03/2018 [facility] Urine urobilinogen measurement by test strip (mass/volume) 0.2 0.2 - 1 05/03/2018 [facility] Urine total bilirubin measurement (mass/volume) NEGATIVE NEGATIVE 05/03/2018 [facility] Urine erythrocytes detection 4+ NEGATIVE 05/03/2018 [facility] Automated urine sediment leukocyte count by microscopy (number/high power field) >50 0 - 5 05/03/2018 [facility] Erythrocytes detection in urine sediment by light microscopy 21-50 0 - 5 05/03/2018 [facility] Bacteria detection in urine sediment by light microscopy MANY NONE 05/03/2018 [facility] Epithelial cells detection in urine sediment by light microscopy RARE NONE 05/03/2018 [facility] Influenza virus A and B antigen identification by immunofluorescence NEGATIVE NEGATIVE 05/03/2018 [facility] Streptococcus pyogenes antigen detection in throat NEGATIVE NEGATIVE 05/03/2018 [facility] Serum or plasma amylase measurement (enzymatic activity/volume) 62 25 - 125 05/03/2018 [facility] Serum or plasma lipase measurement (enzymatic activity/volume) 14 8 - 78 05/03/2018 [facility] Capillary blood glucose measurement by glucometer (mass/volume) Capillary blood glucose measurement by glucometer (mass/volume) 190 70 - 120 09/01/2017 [facility] Estimated glomerular filtration rate (GFR) determination Estimated glomerular filtration rate (GFR) determination 43 60 08/31/2017 [facility] Glucose measurement Glucose measurement 165 74 - 118 08/31/2017 [facility] Serum or plasma anion gap Serum or plasma anion gap 11.7 8 - 16 08/31/2017 [facility] Serum or plasma calcium measurement (mass/volume) Serum or plasma calcium measurement (mass/volume) 8.2 8.4 - 10.2 08/31/2017 [facility] Serum or plasma carbon dioxide, total measurement (moles/volume) Serum or plasma carbon dioxide, total measurement (moles/volume) 20 22 - 29 08/31/2017 [facility] Serum or plasma chloride measurement (moles/volume) Serum or plasma chloride measurement (moles/volume) 109 98 - 107 08/31/2017 [facility] Serum or plasma creatinine measurement (mass/volume) Serum or plasma creatinine measurement (mass/volume) 1.79 0.72 - 1.25 08/31/2017 [facility] Serum or plasma potassium measurement (moles/volume) Serum or plasma potassium measurement (moles/volume) 4.7 3.5 - 5.1 08/31/2017 [facility] Serum or plasma sodium measurement (moles/volume) Serum or plasma sodium measurement (moles/volume) 136 136 - 145 08/31/2017 [facility] Serum or plasma urea nitrogen measurement (mass/volume) Serum or plasma urea nitrogen measurement (mass/volume) 20 7 - 26 08/31/2017 [facility] Serum or plasma urea nitrogen/creatinine mass ratio Serum or plasma urea nitrogen/creatinine mass ratio 11 6 - 25 08/31/2017 [facility] Automated blood basophil count (count/volume) Automated blood basophil count (count/volume) 0.0 0.0 - 0.1 08/30/2017 [facility] Automated blood basophil count as percentage of total leukocytes Automated blood basophil count as percentage of total leukocytes 0.2 0.0 - 1.0 08/30/2017 [facility] Automated blood eosinophil count Automated blood eosinophil count 0.1 0.0 - 0.4 08/30/2017 [facility] Automated blood eosinophil count as percentage of total leukocytes Automated blood eosinophil count as percentage of total leukocytes 2.1 0.0 - 6.0 08/30/2017 [facility] Automated blood hematocrit (volume fraction) Automated blood hematocrit (volume fraction) 29.6 38.2 - 49.6 08/30/2017 [facility] Automated blood lymphocyte count as percentage ot total leukocytes Automated blood lymphocyte count as percentage ot total leukocytes 13.9 18.0 - 39.1 08/30/2017 [facility] Automated blood monocyte count as percentage of total leukocytes Automated blood monocyte count as percentage of total leukocytes 9.8 4.4 - 11.3 08/30/2017 [facility] Automated blood neutrophil count Automated blood neutrophil count 3.9 2.1 - 6.9 08/30/2017 [facility] Automated blood platelet count (count/volume) Automated blood platelet count (count/volume) 115 140 - 360 08/30/2017 [facility] Automated blood segmented neutrophil count as percentage of total leukocytes Automated blood segmented neutrophil count as percentage of total leukocytes 73.6 38.7 - 80.0 08/30/2017 [facility] Automated erythrocyte mean corpuscular hemoglobin (mass per erythrocyte) Automated erythrocyte mean corpuscular hemoglobin (mass per erythrocyte) 26.0 28 - 32 08/30/2017 [facility] Automated erythrocyte mean corpuscular hemoglobin concentration measurement (mass/volume) Automated erythrocyte mean corpuscular hemoglobin concentration measurement (mass/volume) 31.8 31 - 35 08/30/2017 [facility] Automated erythrocyte mean corpuscular volume Automated erythrocyte mean corpuscular volume 82.0 81 - 99 08/30/2017 [facility] Blood erythrocytes automated count (number/volume) Blood erythrocytes automated count (number/volume) 3.61 4.3 - 5.7 08/30/2017 [facility] Blood hemoglobin measurement (moles/volume) Blood hemoglobin measurement (moles/volume) 9.4 14.0 - 18.0 08/30/2017 [facility] Blood leukocytes automated count (number/volume) Blood leukocytes automated count (number/volume) 5.33 4.8 - 10.8 08/30/2017 [facility] Blood lymphocytes count (number/volume) Blood lymphocytes count (number/volume) 0.7 1.0 - 3.2 08/30/2017 [facility] Blood monocytes automated count (number/volume) Blood monocytes automated count (number/volume) 0.5 0.2 - 0.8 08/30/2017 [facility] Plasma globulin measurement (mass/volume) Plasma globulin measurement (mass/volume) 4.6 2.3 - 3.5 08/30/2017 [facility] Serum or plasma alanine aminotransferase measurement (enzymatic activity/volume) Serum or plasma alanine aminotransferase measurement (enzymatic activity/volume) 40 0 - 55 08/30/2017 [facility] Serum or plasma albumin measurement (mass/volume) Serum or plasma albumin measurement (mass/volume) 2.8 3.5 - 5.0 08/30/2017 [facility] Serum or plasma albumin/globulin mass ratio Serum or plasma albumin/globulin mass ratio 0.6 0.8 - 2.0 08/30/2017 [facility] Serum or plasma alkaline phosphatase measurement (enzymatic activity/volume) Serum or plasma alkaline phosphatase measurement (enzymatic activity/volume) 234 40 - 150 08/30/2017 [facility] Serum or plasma protein measurement (mass/volume) Serum or plasma protein measurement (mass/volume) 7.4 6.5 - 8.1 08/30/2017 [facility] Serum or plasma total bilirubin measurement (mass/volume) Serum or plasma total bilirubin measurement (mass/volume) 0.5 0.2 - 1.2 08/30/2017 [facility] Red Cell Distribution Width 16.5 11.7 - 14.4 08/30/2017 [facility] IM GRANULOCYTES % 0.4 0.0 - 1.0 08/30/2017 [facility] Absolute Immature Granulocyte (auto 0.02 0 - 0.1 08/30/2017 [facility] Aspartate Amino Transf (AST/SGOT) 14 5 - 34 08/30/2017 [facility] Lactic Acid Level 6.9 4.5 - 19.8 08/29/2017 [facility] Blood culture NO GROWTH AFTER 5 DAYS, FINAL REPORT 08/29/2017 [facility] Automated urine sediment leukocyte count by microscopy (number/high power field) Automated urine sediment leukocyte count by microscopy (number/high power field) >50 0 - 5 08/29/2017 [facility] Bacteria detection in urine sediment by light microscopy Bacteria detection in urine sediment by light microscopy FEW NONE 08/29/2017 [facility] Blood culture Blood culture NO GROWTH AFTER 72 HOURS 08/29/2017 [facility] Epithelial cells detection in urine sediment by light microscopy Epithelial cells detection in urine sediment by light microscopy RARE NONE 08/29/2017 [facility] Erythrocytes detection in urine sediment by light microscopy Erythrocytes detection in urine sediment by light microscopy >50 0 - 5 08/29/2017 [facility] Specific gravity of Urine by Test strip Specific gravity of Urine by Test strip 1.020 1.010 - 1.025 08/29/2017 [facility] Urine clarity Urine clarity CLOUDY CLEAR 08/29/2017 [facility] Urine color determination Urine color determination RED YELLOW 08/29/2017 [facility] Urine erythrocytes detection Urine erythrocytes detection 3+ NEGATIVE 08/29/2017 [facility] Urine glucose detection Urine glucose detection NEGATIVE NEGATIVE 08/29/2017 [facility] Urine ketones detection by automated test strip Urine ketones detection by automated test strip NEGATIVE NEGATIVE 08/29/2017 [facility] Urine leukocyte esterase detection by dipstick Urine leukocyte esterase detection by dipstick 2+ NEGATIVE 08/29/2017 [facility] Urine nitrite detection Urine nitrite detection NEGATIVE NEGATIVE 08/29/2017 [facility] Urine pH measurement by automated test strip Urine pH measurement by automated test strip 6 5 - 7 08/29/2017 [facility] Urine protein measurement by test strip (mass/volume) Urine protein measurement by test strip (mass/volume) 3+ NEGATIVE 08/29/2017 [facility] Urine total bilirubin measurement (mass/volume) Urine total bilirubin measurement (mass/volume) 1+ NEGATIVE 08/29/2017 [facility] Urine urobilinogen measurement by test strip (mass/volume) Urine urobilinogen measurement by test strip (mass/volume) 0.2 0.2 - 1 08/29/2017 [facility] Lactic Acid Level 6.9 4.5 - 19.8 08/29/2017 [facility] Serum or plasma magnesium measurement (mass/volume) Serum or plasma magnesium measurement (mass/volume) 1.3 1.3 - 2.1 01/25/2017 [facility] Bacterial urine culture Urine Culture [facility] Pathology Reports No Data Provided for This [...] evidence of labral or cartilaginous pathology. 07/23/2017 [facility] Inj Arthrogram Shoulder Unilat DX EXAM: [...] the right shoulder for MR arthrogram. 07/23/2017 [facility] Consultation Notes No Data Provided for This Section Discharge Summaries No Data Provided for This Section History and Physicals No Data Provided for This Section Vital Signs Vital Sign Value Date Comments Source BMI Calculated 22.31 12/01/2017 [facility] Weight 64.602 12/01/2017 [facility] Height 170.18 cm 12/01/2017 [facility] Systolic (mm Hg) 108 12/01/2017 [facility] Diastolic (mm Hg) 76 12/01/2017 [facility] Heart Rate 64 12/01/2017 [facility] Encounters Location Location Details Encounter Type Encounter Number Reason For Visit Attending Provider ADM Date DC Date Status Source Discharged Inpatient [id number] ABHIJIT LLOYD MD 01/25[facility]2017 [facility] Outpatient [id number] Kenzie Partidaon 06/02/2017 06/02/2017 [facility] Outpatient Imaging [facility] Outpt Diag Services [id number] Joaquín Ha 07/23/2017 07/24/2017 [facility] Discharged Inpatient [id number] ABHIJIT LLOYD MD 08/29/2017 09/01/2017 [facility] Phone Message [id number] 11/30/2017 12/02/2017 [facility] [id number] [facility] 12/01/2017 Active [facility] Outpatient [id number] [facility] 12/01/2017 12/02/2017 [facility] Admitted Inpatient [id number] ABHIJIT LLOYD MD 05/04/2018 [facility] Procedures Procedure Code Date Perfomer Comments Source CT of abdomen and pelvis without contrast [id number] 05/03/2018 [facility] X-ray of chest, single view [id number] 05/03/2018 [facility] Hernia repair<sup>1</sup> [id number] 1980 & 1988 [facility] LASIK [id number] [facility] Provision of collar<sup>2</sup> [id number] collar bone fracture [facility] Assessment and Plan No Data Provided [...] or discomfort, temperature increase or decrease. 05/07/2018 [facility] Discharge Date 09/01/17 12:03pm Disposition HOME, SELF-CARE Instructions/Education Provided Diabetes and Diet Urinary Tract Infection - Men Prescriptions See Medication Section Referrals ABHIJIT LLOYD MD (Internal Medicine) Entered Date: 09/01/2017 10:06am Address: [address] [place] [id number] Note: Follow up in 1 week. Call office to make appointment. Additional Instructions/Education follow up with in 1 week. Call office to make an appointment. 09/01/2017 [facility] Social History Social History Date Source Social [...] Start Date Stop Date Never Smoker 05/07/2018 [facility] Social History TypeResponse Substance Abuse Use: None. Recreational Drug Route: Oral. Employment/School Status: Employed. Alcohol Current, Type Beer. Frequency: 3-5 times per week. Smoking Status Never smoker; Exposure to Tobacco Smoke None; Cigarette Smoking Last 365 Days No; Reg Smoking Cessation Counseling Yes entered on: 12/01/17 12/01/2017 [facility] No data available for this section 07/24/2017 [facility] No data available for this section 06/02/2017 [facility] Family History No Data Provided for This Section Advance Directives Order Name Results Value Date Source Advance Directives Advance Directives Directive Response Recorded Date/Time Does the patient have an advance directive? No 05/04/18 10:00pm If yes, is advance directive on file with [facility]? Yes 05/04/18 10:00pm If not on file with [facility] will patient provide a copy? Yes 05/04/18 10:00pm Do you have a Directive to Physician? Yes 05/03/18 3:58pm Do you have a Medical Power of Straight Knife Machine Cutter? Yes 05/03/18 3:58pm Do you have an [...] rights and responsibilities? Yes 05/03/18 3:58pm 05/07/2018 [facility] Advance Directives Advance Directives Directive Response Recorded Date/Time Does the patient have an advance directive? Yes 08/29/17 9:42am If yes, is advance directive on file with [facility]? Yes 08/29/17 9:42am If not on file with [facility] will patient provide a copy? No 08/29/17 9:42am Do you have a Directive to Physician? No 08/29/17 12:49am Do you have a Medical Power of Straight Knife Machine Cutter? No 08/29/17 12:49am Do you have an [...] rights and responsibilities? Yes 08/29/17 12:49am 09/01/2017 [facility] Functional Status No Data Provided for This Section
--- OUTSIDE RECORDS SUMMARY | 2018-10-30 22:30 | XMS REPORT | Clinical Summary ---
Author Author [facility] Organization [place] [facility] Address Unknown Phone Unavailable Care Team Providers Care Dean Of Faculty Name Role Phone Donald Potts MD PCP [...] / Serial / Lot Implanted Type Area [facility] 11/22/2025 [id number] / / [id number] Screw Bone Canc Dome 6.5x25mm Ltxf Hip Joint Right: Knee DEPUY [place] - [id number] Implants ORTHO Implanted: Qty: 1 on 03/27/2016 by Silke Chowdary MD at [facility] 01/22/2026 [id number] / / [id number] Screw Bone Canc Dome 6.5x25mm Ltxf Hip Joint Right: Knee DEPUY [place] - [id number] Implants ORTHO Implanted: Qty: 1 on 03/27/2016 by Silke Chowdary MD at [facility] 10/23/2026 [id number] / / [id number] [place] Stem [id number] Fluted - IPM Right: Knee DEPUY [id number] IMPLANT ORTHOPAEDI Implanted: Qty: 1 on 04/16/2017 by [employer] Silke Chowdary MD at [facility] 12/23/2026 [id number] / / [id number] [place] Fem Slv Ful Por 40mm - IPM Right: Knee DEPUY [id number] IMPLANT ORTHOPAEDI Implanted: Qty: 1 on 04/16/2017 by [employer] Silke Chowdary MD at [facility] 11/22/2025 [id number] / / [id number] [facility]rom [facility] Dist Aug Xs/S/ 10mm - IPM Right: Knee DEPUY [id number] IMPLANT ORTHOPAEDI Implanted: Qty: 1 on 04/16/2017 by [employer] Silke Chowdary MD at [facility] 11/22/2024 [id number] / / [id number] [facility]rom [facility] Dist Aug Xs/S/ 10mm - IPM Right: Knee DEPUY [id number] IMPLANT ORTHOPAEDI Implanted: Qty: 1 on 04/16/2017 by [employer] Silke Chowdary MD at [facility] 10/23/2021 [id number] / / [id number] SrCox Monettfe W/Pin Med Rt 71x66 - IPM Right: Knee DEPUY [id number] IMPLANT ORTHOPAEDI Implanted: Qty: 1 on 04/16/2017 by [employer] Silke Chowdary MD at [facility] 10/24/2019 [id number] / / [id number] Lps Univ Tib Hin Ins Med 31mm - IPM Right: Knee DEPUY [id number] IMPLANT ORTHOPAEDI Implanted: Qty: 1 on 04/16/2017 by [employer] Silke Chowdary MD at [facility] 01/22/2026 [id number] / / [id number] Augment Fml P.F.C Sigma Distl Rt Sz Knee Joint Right: Knee DEPUY 5 4mm - [id number] Implants ORTHO Implanted: Qty: 1 on 03/27/2016 by Silke Chowdary MD at [facility] 01/22/2026 [id number] / / [id number] Stem Tib Cementd [id number] P.F.C Knee Joint Right: Knee DEPUY Sigma - [id number] Implants ORTHO Implanted: Qty: 1 on 03/27/2016 by Silke Chowdary MD at [facility] 10/22/2020 [id number] / / [id number] Augment Fml P.F.C Sigma Distl Rt Sz Knee Joint Right: Knee DEPUY 5 8mm - [id number] Implants ORTHO Implanted: Qty: 1 on 03/27/2016 by Silke Chowdary MD at [facility] 09/22/2025 [id number] / / [id number] Stem Tib Cementd [id number] Knee Joint Right: Knee DEPUY P.F.C.Sigma - [id number] Implants ORTHO Implanted: Qty: 1 on 03/27/2016 by Silke Chowdary MD at [facility] 12/23/2020 [id number] / / [id number] Patella Prosths Oval / Dome 3-Post Knee Joint Right: Knee DEPUY 38mm Std Uhmwpe - [id number] Implants ORTHO Implanted: Qty: 1 on 03/27/2016 by Silke Chowdary MD at [facility] 05/23/2020 [id number] / / [id number] Insert Tib Stblzd Rp Sz 5 25mm Knee Joint Right: Knee DEPUY P.F.C Sigma - [id number] Implants ORTHO Implanted: Qty: 1 on 03/27/2016 by Silke Chowdary MD at [facility] 02/22/2026 [id number] / / [id number] Tray Rev Mbt 5x53.1x80.6x61.8mm - Knee Joint Right: Knee DEPUY [id number] Implants ORTHO Implanted: Qty: 1 on 03/27/2016 by Silke Chowdary MD at [facility] 09/22/2025 [id number] / / [id number] Component Fml Rt N-Por Tc3 Sz 5 Knee Joint Right: Knee DEPUY [id number] P.F.C Sigma - [id number] Implants ORTHO Implanted: Qty: 1 on 03/27/2016 by Silke Chowdary MD at [facility] 01/22/2026 [id number] / / [id number] Adapter Fml P.F.C Sigma 5deg - Knee Joint Right: Knee DEPUY [id number] Implants ORTHO-KNEE Implanted: Qty: 1 on 03/27/2016 by Silke Gutierres MD at [facility] 11/22/2025 [id number] / / [id number] Adapter Fml P.F.C Sigma Ofst [place] Knee Joint Right: Knee DEPUY +2/-2mm - [id number] Implants ORTHO-KNEE Implanted: Qty: 1 on 03/27/2016 by Silke Gutierres MD at [facility] 01/22/2017 [id number] / / [id number] Cement Bone Hiviscocty 40gr Surgical Right: Knee DEPUY Smartset - [id number] Bone ORTHO Implanted: Qty: 2 on 03/27/2016 by Silke Monge MD at [facility] 12/23/2016 [id number] / / [id number] Cement Bone Hiviscocty 40gr Surgical Right: Knee DEPUY Smartset - [id number] Bone ORTHO Implanted: Qty: 1 on 03/27/2016 by Silke Monge MD at [facility] 10/23/2018 [id number] / / [id number] Cement Bone Hiviscocty 40gr Surgical Right: Knee DEPUY Smartset - [id number] Bone ORTHO Implanted: 04/16/2017 at [facility] (Quantity not on file) 12/24/2020 [id number] / / [id number] Cement Bone Prep Univl Insrtr Sculp Surgical Right: Knee SANDOR Fml [place] Suct Sm - [id number] Implants; INSTRUMENT Implanted: Qty: 1 on 03/27/2016 by [employer]; S Silke Chowdary MD at [facility] Extenders; Surgical Wires [id number] / / Immobilizer Knee Tripnl Dlx W/ Patl Surgical N/A: N/A DEROYAL Strp Univl Canvas 24in - [id number] Implants; INDUSTRIES Implanted: 04/16/2017 at [facility] Expanders; HOSPITAL (Quantity not on file) Extenders; Surgical Wires Results Not on fileafter 10/29/2017 Insurance Type Payer Benefit Subscriber ID Effective Phone Address Plan / Dates Group Workers Comp WORKERS COMP PARADIGM xxxxxxxxxxxxxxx 2015- HEALTH xxxxx Present ARNAV Guarantor Name Account Relation to Date of Phone Billing Address Type Patient [id number] Workers Employer 02/23/1900 [id number] [employer] Comp (Home) [address] [address] Sukh Lozano Personal/F Self 1980 [id number] [employer] amily (Home) [address] [address] Sukh Lozano Third Self 1980 [id number] [employer] Democrat (Home) [place] [address] Advance Directives For more information, please contact: [phone] Patient Ropeman Explanation Type Date Recorded Advance Directives, Living Will and Medical Power of Deportation Examiner Advance Directives, 04/05/2016 3:13 AM Living Will and Medical Power of Deportation Examiner
[2018-10-30] MEDS ORDERED: ONDANSETRON HCL INJ 2MG/ML 2ML 2 MG/ML VIAL IV STA (23:52)
[2018-10-30 23:54] LABS: BASOPHILS % 0.3 % (0.0-1.0); EOSINOPHILS % 0.1 % (0.0-6.0); HEMATOCRIT 32.1 % (38.2-49.6); HEMOGLOBIN 10.7 g/dL (14.0-18.0); LYMPHOCYTES # (AUTO) 0.8 (1.0-3.2); LYMPHOCYTES % 10.9 % (18.0-39.1); MEAN CORPUSCULAR HEMOGLOBIN 27.5 pg (28-32); MEAN CORPUSCULAR HGB CONC 33.3 g/dL (31-35); MEAN CORPUSCULAR VOLUME 82.5 fL (81-99); MONOCYTES # (AUTO) 0.2 (0.2-0.8); MONOCYTES % 2.5 % (4.4-11.3); NEUTROPHILS # (AUTO) 6.1 (2.1-6.9); NEUTROPHILS % 85.8 % (38.7-80.0); PLATELET COUNT 118 x10e3/uL (140-360); RED BLOOD COUNT 3.89 x10e6/uL (4.3-5.7); RED CELL DISTRIBUTION WIDTH 15.7 % (11.7-14.4)
[2018-10-30] MEDS ORDERED: ONDANSETRON HCL INJ 2MG/ML 2ML 2 MG/ML VIAL ONE (23:57)
[2018-10-31] VITALS (8 sets, daily range): BP systolic 116–137; BP diastolic 84–97
[2018-10-31 00:05] LABS: ALBUMIN 3.5 g/dL (3.5-5.0); ALBUMIN/GLOBULIN RATIO 0.7 (0.8-2.0); CALCIUM 8.1 mg/dL (8.4-10.2); CREATININE, SERUM 4.15 mg/dL (0.72-1.25)
[2018-10-31 00:12] LABS: CREATINE KINASE MB 2.2 ng/mL (0-5.0)
[2018-10-31 01:54] LABS: BILIRUBIN,URINE SMALL (NEGATIVE); CLARITY,URINE CLEAR (CLEAR); COLOR,URINE YELLOW (YELLOW); KETONES,URINE TRACE (NEGATIVE); LEUKOCYTE ESTERASE ,URINE NEGATIVE (NEGATIVE); NITRITE,URINE NEGATIVE (NEGATIVE); URINE UROBILINOGEN 0.2 mg/dL (0.2 - 1)
[2018-10-31 02:27] LABS: PROTEIN,URINE DIPSTICK 3+ (NEGATIVE)
[2018-10-31 02:34] LABS: BACTERIA,URINE MANY /HPF; EPITHELIAL CELLS,URINE MODERATE /LPF; RBC,URINE >50 /HPF (0-5); WBC,URINE (MAN) >50 /HPF (0-5)
--- NOTE | 2018-10-31 02:56 | Diagnostic Imaging Report ---
CT Abdomen and Pelvis without contrast INDICATION ^rt flank pain ^[id number] ^0215 TECHNIQUE: Thin collimation axial images obtained from the diaphragm to the level of the pubic symphysis without nonionic intravenous contrast. Dose reduction techniques used: Automated exposure control, adjustment of the mAs and/or kVp according to patient size, standardized low-dose protocol, and/or iterative reconstruction technique. RADIATION DOSE: Total DLP: 529.8 mGy*cm Estimated effective dose: (DLP x 0.015 x size factor) mSv CTDIvol has been reviewed. It is below the limits set by the Radiation Protocol Committee (RPC). COMPARISON: CT abdomen/pelvis 10/18/2018. ABDOMEN FINDINGS: Lung Bases: Small focus of groundglass attenuation in the anterior basal segment of the left lower lobe is suggestive of an infectious/inflammatory process. The visualized portion of the mediastinum is normal. Liver: Normal in attenuation without mass. Gallbladder: Absent. No ductal dilatation. Pancreas: Diffuse calcifications. No ductal dilatation or soft tissue mass. Spleen: Normal size without mass. Adrenal Glands: No evidence for mass. Kidneys: Right: Atrophic with fullness of the collecting system, similar to previous exam. No perinephric inflammation. No intrarenal calculus Left: Fullness of the collecting system without significant perinephric inflammation. No intrarenal calculus. No cortical mass Lymph Nodes: No enlarged abdominal or periaortic lymph nodes. Inguinal lymph nodes are prominent, particularly the right inguinal lymph nodes. These are similar in appearance. A right obturator lymph node measures 2.5 cm and is stable. There are no enlarged mesenteric lymph nodes. Aorta: Normal in diameter. PELVIS FINDINGS: Bowel: Stomach: Normal. Small Bowel: Normal in caliber with normal wall thickness. Large Bowel: Normal in caliber with normal wall thickness. Appendix: Normal. Bladder: Suprapubic catheter is in appropriate position. The bladder is collapsed. No perivesicular inflammation Ureters: No ureteral dilatation or calculus. The ureters are mildly distended and symmetric in appearance without periureteric inflammation Peritoneum/retroperitoneum: No free fluid or fluid collection. Bones: No focal osseous lesions. Soft tissues: Bilateral scrotal calcifications are stable. IMPRESSION: 1. Patulousness of the renal collecting systems and chronic mild symmetric distention of the ureters without associated inflammation. No renal or ureteral calculus 2. No evidence for bowel obstruction or inflammation. Normal appendix. 3. Chronic pancreatitis. 4. Small focus of inflammation in the anterior basal segment of the left lower lobe. Please correlate for signs/symptoms of infection. Signed by: Dr. Sandy Powers MD on 10/31/2018 2:53 AM
--- NOTE | 2018-10-31 03:30 | NUR ---
PT TO BE DISCHARGED HOME. VS ASSESSED AND RECORDED. IV DC'D C COBAN DRESSING APPLIED. PT BEGAN VOMITING REDDISH BROWN COLORED EMESIS. MD INFORMED. IV RESTARTED AND MEDICATED C ZOFRAN PER MD ORDERS.
[2018-10-31] MEDS ORDERED: ONDANSETRON HCL INJ 2MG/ML 2ML 2 MG/ML VIAL ONE (03:35)
--- OUTSIDE RECORDS SUMMARY | 2018-10-31 03:41 | XMS REPORT | Continuity of Care Document ---
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 Active 06/17/2017 [facility] Acute renal failure Active 08/09/2015 Problem 05/07/2018 [facility] Dehydration Active 08/09/2015 Problem 05/07/2018 [facility] Diarrhea Active 08/09/2015 Problem 05/07/2018 [facility] GI bleed Active 08/09/2015 Problem 05/07/2018 [facility] Hyperglycemia Active 08/09/2015 Problem 05/07/2018 [facility] Renal insufficiency Active 04/15/2015 Problem 09/01/2017 [facility] Sepsis Active 04/15/2015 Problem 05/07/2018 [facility] Renal insufficiency Active 04/15/2015 Problem 05/07/2018 [facility] Bacteremia Active 03/30/2015 Problem 05/07/2018 [facility] Prostatitis Active 03/30/2015 Problem 05/07/2018 [facility] Urinary tract infection Active 03/30/2015 Problem 05/07/2018 [facility] Pyelonephritis Active 02/10/2015 Problem 05/07/2018 [facility] Acute renal insufficiency Active Problem 05/07/2018 [facility] Bladder wall thickening Active Problem 05/07/2018 [facility] Fever Active Problem 05/07/2018 [facility] Hydroureteronephrosis Active Problem 05/07/2018 [facility] Hypomagnesemia Active Problem 05/07/2018 [facility] Indwelling catheter present on admission Active Problem 05/07/2018 [facility] Obstructive uropathy Active Problem 05/07/2018 [facility] Displacement of ureteral stent Active Problem 09/01/2017 [facility] Displacement of ureteral stent Active Problem 05/07/2018 [facility] Vomiting Active Problem 05/07/2018 [facility] Medications Medication Details Route Status Patient Instructions Ordering Provider Order Date Source Amlodipine Besylate 10 Mg Tablet, 10 Mg Oral Daily Active 05/05/2018 [facility] Metoprolol Tartrate 25 Mg Tablet, 25 Mg Oral Twice A Day Active 05/05/2018 [facility] Ciprofloxacin Hcl (Cipro) 500 Mg Tablet, 500 Mg Oral Daily Active 08/29/2017 [facility] Doxycycline Hyclate 100 Mg Capsule, 100 Mg Oral Twice A Day Active 08/29/2017 [facility] Fluconazole 100 Mg Tablet, 200 Mg Oral Daily Active 08/29/2017 [facility] Insulin Detemir (Levemir) 100 Unit/1 Ml Vial, 20 Units Sub-Q Bedtime Active 08/29/2017 [facility] Oxybutynin Chloride (Oxybutynin Chloride Er) 5 Mg Tab.er.24, 15 Mg Oral Daily Active 08/29/2017 [facility] Doxycycline Hyclate 100 Mg Capsule, 100 Mg Oral Twice A Day Active 08/29/2017 [facility] Fluconazole 100 Mg Tablet, 200 Mg Oral Daily Active 08/29/2017 [facility] Insulin Detemir (Levemir) 100 Unit/1 Ml Vial, 20 Units Sub-Q Bedtime Active 08/29/2017 [facility] Oxybutynin Chloride (Oxybutynin Chloride Er) 5 Mg Tab.er.24, 15 Mg Oral Daily Active 08/29/2017 [facility] Cephalexin 500 Mg Capsule, 500 Mg Oral Four Times Daily Active 06/04/2016 [facility] Hydrocodone Bit/Acetaminophen ([place] 5-325 Tablet) 1 Each Tablet, 1 Tab Oral Every 6 Hours as needed for Pain Active 06/04/2016 [facility] Promethazine Hcl 25 Mg Tablet, 25 Mg Oral Every 4 Hours Active 06/04/2016 [facility] Tramadol Hcl (Ultram) 50 Mg Tablet, 1-2 Tab Oral Every 6 Hours as needed for Pain Active 06/04/2016 [facility] Cephalexin 500 Mg Capsule, 500 Mg Oral Four Times Daily Active 06/04/2016 [facility] Hydrocodone Bit/Acetaminophen ([place] 5-325 Tablet) 1 Each Tablet, 1 Tab Oral Every 6 Hours as needed for Pain Active 06/04/2016 [facility] Promethazine Hcl 25 Mg Tablet, 25 Mg Oral Every 4 Hours Active 06/04/2016 [facility] Fluticasone Propionate 16 Gm Saunemin.susp, 1 Twice A Day Active 08/08/2015 [facility] Meropenem (Merrem) 500 Mg Inj, 500 Mg Intraven Every 8 Hours Active 08/08/2015 [facility] Metoclopramide Hcl (Reglan) 10 Mg Tablet, 10 Mg Before Meals And At Bedtime Active 08/08/2015 [facility] Pantoprazole Sodium (Protonix) 40 Mg Tablet.dr, 40 Mg Oral Every Morning Active 08/08/2015 [facility] Fluticasone Propionate 16 Gm Sa[place]emin.susp, 1 Twice A Day Active 08/08/2015 [facility] Metoclopramide Hcl (Reglan) 10 Mg Tablet, 10 Mg Before Meals And At Bedtime Active 08/08/2015 [facility] Amoxicillin/Potassium Clav (Augmentin 500-125 Tablet) 1 Each Tablet, 500 Mg Oral Twice A Day Active 04/11/2015 [facility] Fluconazole (Diflucan) 100 Mg Tablet, Mg Oral Daily Active 04/11/2015 [facility] Amoxicillin/Potassium Clav (Augmentin 500-125 Tablet) 1 Each Tablet, 500 Mg Oral Twice A Day Active 04/11/2015 [facility] Fluconazole (Diflucan) 100 Mg Tablet, Mg Oral Daily Active 04/11/2015 [facility] Tamsulosin Hcl (Flomax*) 0.4 Mg Cap, 0.4 Mg Oral Bedtime Active 03/30/2015 [facility] Tamsulosin Hcl (Flomax*) 0.4 Mg Cap, 0.4 Mg Oral Bedtime Active 03/30/2015 [facility] Acetaminophen With Codeine (Tylenol With Codeine #3 Tablet) 1 Each Tablet, 300 Mg Oral Every 6 Hours as needed for Pain Active 03/08/2015 [facility] Senna Fruit/Conc/Doc Sod/Bisa (Senna-S Tablet) 1 Ea Tab, 1 Each Oral Bedtime Active 03/08/2015 [facility] Acetaminophen With Codeine (Tylenol With Codeine #3 Tablet) 1 Each Tablet, 300 Mg Oral Every 6 Hours as needed for Pain Active 03/08/2015 [facility] Senna Fruit/Conc/Doc Sod/Bisa (Senna-S Tablet) 1 Ea Tab, 1 Each Oral Bedtime Active 03/08/2015 [facility] Hydrocodone Bit/Acetaminophen ([place] 5-325 Tablet) 1 Each Tablet, Tab Oral Daily Active 02/22/2015 [facility] Insulin Npl/Insulin Lispro (Humalog Mix 50-50 Kwikpen) 100 Unit/1 Ml Insuln.pen, Sub-Q 15 Units Every A.m. Active 02/22/2015 [facility] Lisinopril 10 Mg Tablet, Tab Oral Daily Active 02/22/2015 [facility] Amoxicillin/Potassium Clav (Augmentin 875-125 Tablet) 1 Each Tablet, Tab Oral Twice A Day Active 02/11/2015 [facility] Cephalexin Monohydrate (Keflex) 500 Mg Capsule, 500 Mg Oral Three Times A Day Active 02/11/2015 [facility] Docusate Sodium (Colace) 100 Mg Cap, Cap Oral Daily Active 02/11/2015 [facility] Insulin Glargine,Hum.rec.anlog (Lantus) 100 Unit/1 Ml Cartridge, Sub-Q 45 Units At Bedtime Active 02/11/2015 [facility] Metformin Hcl 500 Mg Tablet, 500 Mg Oral Twice Daily Active 02/11/2015 [facility] Amlodipine Besylate 10 Mg Tablet Daily Active [facility] Gabapentin 300 Mg Capsule Three Times A Day Active [facility] Insulin Aspart (Novolog) 100 Unit/1 Ml Cartridge Before Meals Active [facility] Metoprolol Tartrate 25 Mg Tablet Twice A Day Active [facility] Gabapentin 300 Mg Capsule Twice A Day Active [facility] Insulin Aspart (Novolog) 100 Unit/1 Ml Cartridge Before Meals Active [facility] Nifedipine (Nifedipine Er) 30 Mg Tab.er.24 Daily Active [facility] Vyzulta Daily Active [facility] Allergies, Adverse Reactions, Alerts Substance Category Reaction Severity Reaction type Status Date Reported Comments Source PO CONTRAST Mild Allergy to Substance Active 07/06/2007 [facility] Iodinated Contrast- Oral and IV Dye Unknown Allergy to Substance Active 05/03/2018 [facility] No Known Medication Allergies Assertion Drug allergy [facility] Immunizations No Data Provided for This Section Results Order Name Results Value Reference Range Date Interpretation Comments Source Capillary blood glucose measurement by glucometer (mass/volume) 72 70 - 120 05/07/2018 [facility] Serum or plasma sodium measurement (moles/volume) 136 136 - 145 05/06/2018 [facility] Serum or plasma potassium measurement (moles/volume) 5.2 3.5 - 5.1 05/06/2018 [facility] Serum or plasma chloride measurement (moles/volume) 111 98 - 107 05/06/2018 [facility] Serum or plasma carbon dioxide, total measurement (moles/volume) 21 22 - 29 05/06/2018 [facility] Serum or plasma anion gap 9.2 8 - 16 05/06/2018 [facility] Serum or plasma urea nitrogen measurement (mass/volume) 26 7 - 26 05/06/2018 [facility] Serum or plasma creatinine measurement (mass/volume) 2.22 0.72 - 1.25 05/06/2018 [facility] Serum or plasma urea nitrogen/creatinine mass ratio 12 6 - 25 05/06/2018 [facility] Estimated glomerular filtration rate (GFR) determination 33 60 05/06/2018 [facility] Glucose measurement 144 74 - 118 05/06/2018 [facility] Serum or plasma calcium measurement (mass/volume) 6.5 8.4 - 10.2 05/06/2018 [facility] Blood leukocytes automated count (number/volume) 3.55 4.8 - 10.8 05/06/2018 [facility] Blood erythrocytes automated count (number/volume) 3.25 4.3 - 5.7 05/06/2018 [facility] Blood hemoglobin measurement (moles/volume) 8.6 14.0 - 18.0 05/06/2018 [facility] Automated blood hematocrit (volume fraction) 27.2 38.2 - 49.6 05/06/2018 [facility] Automated erythrocyte mean corpuscular volume 83.7 81 - 99 05/06/2018 [facility] Automated erythrocyte mean corpuscular hemoglobin (mass per erythrocyte) 26.5 28 - 32 05/06/2018 [facility] Automated erythrocyte mean corpuscular hemoglobin concentration measurement (mass/volume) 31.6 31 - 35 05/06/2018 [facility] RDW BldCo-Rto 14.6 11.7 - 14.4 05/06/2018 [facility] Automated blood platelet count (count/volume) 113 140 - 360 05/06/2018 [facility] Automated blood segmented neutrophil count as percentage of total leukocytes 59.6 38.7 - 80.0 05/06/2018 [facility] Automated blood lymphocyte count as percentage ot total leukocytes 24.8 18.0 - 39.1 05/06/2018 [facility] Automated blood monocyte count as percentage of total leukocytes 8.5 4.4 - 11.3 05/06/2018 [facility] Automated blood eosinophil count as percentage of total leukocytes 5.1 0.0 - 6.0 05/06/2018 [facility] Automated blood basophil count as percentage of total leukocytes 0.6 0.0 - 1.0 05/06/2018 [facility] IM GRANULOCYTES % 1.4 0.0 - 1.0 05/06/2018 [facility] Automated blood neutrophil count 2.1 2.1 - 6.9 05/06/2018 [facility] Blood lymphocytes count (number/volume) 0.9 1.0 - 3.2 05/06/2018 [facility] Blood monocytes automated count (number/volume) 0.3 0.2 - 0.8 05/06/2018 [facility] Automated blood eosinophil count 0.2 0.0 - 0.4 05/06/2018 [facility] Automated blood basophil count (count/volume) 0.0 0.0 - 0.1 05/06/2018 [facility] Absolute Immature Granulocyte (auto 0.05 0 - 0.1 05/06/2018 [facility] Serum or plasma total bilirubin measurement (mass/volume) 0.2 0.2 - 1.2 05/05/2018 [facility] Aspartate Amino Transf (AST/SGOT) 31 5 - 34 05/05/2018 [facility] Serum or plasma alanine aminotransferase measurement (enzymatic activity/volume) 44 0 - 55 05/05/2018 [facility] Serum or plasma protein measurement (mass/volume) 6.6 6.5 - 8.1 05/05/2018 [facility] Serum or plasma albumin measurement (mass/volume) 2.4 3.5 - 5.0 05/05/2018 [facility] Plasma globulin measurement (mass/volume) 4.2 2.3 - 3.5 05/05/2018 [facility] Serum or plasma albumin/globulin mass ratio 0.6 0.8 - 2.0 05/05/2018 [facility] Serum or plasma alkaline phosphatase measurement (enzymatic activity/volume) 272 40 - 150 05/05/2018 [facility] Urine color determination YELLOW YELLOW 05/03/2018 [facility] Urine clarity CLOUDY CLEAR 05/03/2018 [facility] Specific gravity of Urine by Test strip 1.025 1.010 - 1.025 05/03/2018 [facility] Urine pH measurement by automated test strip 6 5 - 7 05/03/2018 [facility] Urine leukocyte esterase detection by dipstick 2+ NEGATIVE 05/03/2018 [facility] Urine nitrite detection POSITIVE NEGATIVE 05/03/2018 [facility] Urine protein measurement by test strip (mass/volume) 3+ NEGATIVE 05/03/2018 [facility] Urine glucose detection 1+ NEGATIVE 05/03/2018 [facility] Urine ketones detection by automated test strip NEGATIVE NEGATIVE 05/03/2018 [facility] Urine urobilinogen measurement by test strip (mass/volume) 0.2 0.2 - 1 05/03/2018 [facility] Urine total bilirubin measurement (mass/volume) NEGATIVE NEGATIVE 05/03/2018 [facility] Urine erythrocytes detection 4+ NEGATIVE 05/03/2018 [facility] Automated urine sediment leukocyte count by microscopy (number/high power field) >50 0 - 5 05/03/2018 [facility] Erythrocytes detection in urine sediment by light microscopy 21-50 0 - 5 05/03/2018 [facility] Bacteria detection in urine sediment by light microscopy MANY NONE 05/03/2018 [facility] Epithelial cells detection in urine sediment by light microscopy RARE NONE 05/03/2018 [facility] Influenza virus A and B antigen identification by immunofluorescence NEGATIVE NEGATIVE 05/03/2018 [facility] Streptococcus pyogenes antigen detection in throat NEGATIVE NEGATIVE 05/03/2018 [facility] Serum or plasma amylase measurement (enzymatic activity/volume) 62 25 - 125 05/03/2018 [facility] Serum or plasma lipase measurement (enzymatic activity/volume) 14 8 - 78 05/03/2018 [facility] Capillary blood glucose measurement by glucometer (mass/volume) Capillary blood glucose measurement by glucometer (mass/volume) 190 70 - 120 09/01/2017 [facility] Estimated glomerular filtration rate (GFR) determination Estimated glomerular filtration rate (GFR) determination 43 60 08/31/2017 [facility] Glucose measurement Glucose measurement 165 74 - 118 08/31/2017 [facility] Serum or plasma anion gap Serum or plasma anion gap 11.7 8 - 16 08/31/2017 [facility] Serum or plasma calcium measurement (mass/volume) Serum or plasma calcium measurement (mass/volume) 8.2 8.4 - 10.2 08/31/2017 [facility] Serum or plasma carbon dioxide, total measurement (moles/volume) Serum or plasma carbon dioxide, total measurement (moles/volume) 20 22 - 29 08/31/2017 [facility] Serum or plasma chloride measurement (moles/volume) Serum or plasma chloride measurement (moles/volume) 109 98 - 107 08/31/2017 [facility] Serum or plasma creatinine measurement (mass/volume) Serum or plasma creatinine measurement (mass/volume) 1.79 0.72 - 1.25 08/31/2017 [facility] Serum or plasma potassium measurement (moles/volume) Serum or plasma potassium measurement (moles/volume) 4.7 3.5 - 5.1 08/31/2017 [facility] Serum or plasma sodium measurement (moles/volume) Serum or plasma sodium measurement (moles/volume) 136 136 - 145 08/31/2017 [facility] Serum or plasma urea nitrogen measurement (mass/volume) Serum or plasma urea nitrogen measurement (mass/volume) 20 7 - 26 08/31/2017 [facility] Serum or plasma urea nitrogen/creatinine mass ratio Serum or plasma urea nitrogen/creatinine mass ratio 11 6 - 25 08/31/2017 [facility] Automated blood basophil count (count/volume) Automated blood basophil count (count/volume) 0.0 0.0 - 0.1 08/30/2017 [facility] Automated blood basophil count as percentage of total leukocytes Automated blood basophil count as percentage of total leukocytes 0.2 0.0 - 1.0 08/30/2017 [facility] Automated blood eosinophil count Automated blood eosinophil count 0.1 0.0 - 0.4 08/30/2017 [facility] Automated blood eosinophil count as percentage of total leukocytes Automated blood eosinophil count as percentage of total leukocytes 2.1 0.0 - 6.0 08/30/2017 [facility] Automated blood hematocrit (volume fraction) Automated blood hematocrit (volume fraction) 29.6 38.2 - 49.6 08/30/2017 [facility] Automated blood lymphocyte count as percentage ot total leukocytes Automated blood lymphocyte count as percentage ot total leukocytes 13.9 18.0 - 39.1 08/30/2017 [facility] Automated blood monocyte count as percentage of total leukocytes Automated blood monocyte count as percentage of total leukocytes 9.8 4.4 - 11.3 08/30/2017 [facility] Automated blood neutrophil count Automated blood neutrophil count 3.9 2.1 - 6.9 08/30/2017 [facility] Automated blood platelet count (count/volume) Automated blood platelet count (count/volume) 115 140 - 360 08/30/2017 [facility] Automated blood segmented neutrophil count as percentage of total leukocytes Automated blood segmented neutrophil count as percentage of total leukocytes 73.6 38.7 - 80.0 08/30/2017 [facility] Automated erythrocyte mean corpuscular hemoglobin (mass per erythrocyte) Automated erythrocyte mean corpuscular hemoglobin (mass per erythrocyte) 26.0 28 - 32 08/30/2017 [facility] Automated erythrocyte mean corpuscular hemoglobin concentration measurement (mass/volume) Automated erythrocyte mean corpuscular hemoglobin concentration measurement (mass/volume) 31.8 31 - 35 08/30/2017 [facility] Automated erythrocyte mean corpuscular volume Automated erythrocyte mean corpuscular volume 82.0 81 - 99 08/30/2017 [facility] Blood erythrocytes automated count (number/volume) Blood erythrocytes automated count (number/volume) 3.61 4.3 - 5.7 08/30/2017 [facility] Blood hemoglobin measurement (moles/volume) Blood hemoglobin measurement (moles/volume) 9.4 14.0 - 18.0 08/30/2017 [facility] Blood leukocytes automated count (number/volume) Blood leukocytes automated count (number/volume) 5.33 4.8 - 10.8 08/30/2017 [facility] Blood lymphocytes count (number/volume) Blood lymphocytes count (number/volume) 0.7 1.0 - 3.2 08/30/2017 [facility] Blood monocytes automated count (number/volume) Blood monocytes automated count (number/volume) 0.5 0.2 - 0.8 08/30/2017 [facility] Plasma globulin measurement (mass/volume) Plasma globulin measurement (mass/volume) 4.6 2.3 - 3.5 08/30/2017 [facility] Serum or plasma alanine aminotransferase measurement (enzymatic activity/volume) Serum or plasma alanine aminotransferase measurement (enzymatic activity/volume) 40 0 - 55 08/30/2017 [facility] Serum or plasma albumin measurement (mass/volume) Serum or plasma albumin measurement (mass/volume) 2.8 3.5 - 5.0 08/30/2017 [facility] Serum or plasma albumin/globulin mass ratio Serum or plasma albumin/globulin mass ratio 0.6 0.8 - 2.0 08/30/2017 [facility] Serum or plasma alkaline phosphatase measurement (enzymatic activity/volume) Serum or plasma alkaline phosphatase measurement (enzymatic activity/volume) 234 40 - 150 08/30/2017 [facility] Serum or plasma protein measurement (mass/volume) Serum or plasma protein measurement (mass/volume) 7.4 6.5 - 8.1 08/30/2017 [facility] Serum or plasma total bilirubin measurement (mass/volume) Serum or plasma total bilirubin measurement (mass/volume) 0.5 0.2 - 1.2 08/30/2017 [facility] Red Cell Distribution Width 16.5 11.7 - 14.4 08/30/2017 [facility] IM GRANULOCYTES % 0.4 0.0 - 1.0 08/30/2017 [facility] Absolute Immature Granulocyte (auto 0.02 0 - 0.1 08/30/2017 [facility] Aspartate Amino Transf (AST/SGOT) 14 5 - 34 08/30/2017 [facility] Lactic Acid Level 6.9 4.5 - 19.8 08/29/2017 [facility] Blood culture NO GROWTH AFTER 5 DAYS, FINAL REPORT 08/29/2017 [facility] Automated urine sediment leukocyte count by microscopy (number/high power field) Automated urine sediment leukocyte count by microscopy (number/high power field) >50 0 - 5 08/29/2017 [facility] Bacteria detection in urine sediment by light microscopy Bacteria detection in urine sediment by light microscopy FEW NONE 08/29/2017 [facility] Blood culture Blood culture NO GROWTH AFTER 72 HOURS 08/29/2017 [facility] Epithelial cells detection in urine sediment by light microscopy Epithelial cells detection in urine sediment by light microscopy RARE NONE 08/29/2017 [facility] Erythrocytes detection in urine sediment by light microscopy Erythrocytes detection in urine sediment by light microscopy >50 0 - 5 08/29/2017 [facility] Specific gravity of Urine by Test strip Specific gravity of Urine by Test strip 1.020 1.010 - 1.025 08/29/2017 [facility] Urine clarity Urine clarity CLOUDY CLEAR 08/29/2017 [facility] Urine color determination Urine color determination RED YELLOW 08/29/2017 [facility] Urine erythrocytes detection Urine erythrocytes detection 3+ NEGATIVE 08/29/2017 [facility] Urine glucose detection Urine glucose detection NEGATIVE NEGATIVE 08/29/2017 [facility] Urine ketones detection by automated test strip Urine ketones detection by automated test strip NEGATIVE NEGATIVE 08/29/2017 [facility] Urine leukocyte esterase detection by dipstick Urine leukocyte esterase detection by dipstick 2+ NEGATIVE 08/29/2017 [facility] Urine nitrite detection Urine nitrite detection NEGATIVE NEGATIVE 08/29/2017 [facility] Urine pH measurement by automated test strip Urine pH measurement by automated test strip 6 5 - 7 08/29/2017 [facility] Urine protein measurement by test strip (mass/volume) Urine protein measurement by test strip (mass/volume) 3+ NEGATIVE 08/29/2017 [facility] Urine total bilirubin measurement (mass/volume) Urine total bilirubin measurement (mass/volume) 1+ NEGATIVE 08/29/2017 [facility] Urine urobilinogen measurement by test strip (mass/volume) Urine urobilinogen measurement by test strip (mass/volume) 0.2 0.2 - 1 08/29/2017 [facility] Lactic Acid Level 6.9 4.5 - 19.8 08/29/2017 [facility] Serum or plasma magnesium measurement (mass/volume) Serum or plasma magnesium measurement (mass/volume) 1.3 1.3 - 2.1 01/25/2017 [facility] Bacterial urine culture Urine Culture [facility] Pathology Reports No Data Provided for This [...] evidence of labral or cartilaginous pathology. 07/23/2017 [facility] Inj Arthrogram Shoulder Unilat DX EXAM: [...] the right shoulder for MR arthrogram. 07/23/2017 [facility] Consultation Notes No Data Provided for This Section Discharge Summaries No Data Provided for This Section History and Physicals No Data Provided for This Section Vital Signs Vital Sign Value Date Comments Source BMI Calculated 22.31 12/01/2017 [facility] Weight 64.602 12/01/2017 [facility] Height 170.18 cm 12/01/2017 [facility] Systolic (mm Hg) 108 12/01/2017 [facility] Diastolic (mm Hg) 76 12/01/2017 [facility] Heart Rate 64 12/01/2017 [facility] Encounters Location Location Details Encounter Type Encounter Number Reason For Visit Attending Provider ADM Date DC Date Status Source Discharged Inpatient [id number] ABHIJIT LLOYD MD 01/25/2017 [facility] [id number] Kenzie Partidaon 06/02/2017 06/02/2017 [facility] Outpatient Imaging [facility] Diag Services [id number] Joaquín Ha 07/23/2017 07/24/2017 [facility] Discharged Inpatient [id number] ABHIJIT LLOYD MD 08/29/2017 09/01/2017 [facility] Phone Message [id number] 11/30/2017 12/02/2017 [facility] Neuro Outpatient [id number] [facility] 12/01/2017 Active [facility] Outpatient [id number] [facility] 12/01/2017 12/02/2017 [facility] Neuro Admitted Inpatient [id number] ABHIJIT LLOYD MD 05/04/2018 [facility] Procedures Procedure Code Date Perfomer Comments Source CT of abdomen and pelvis without contrast [id number] 05/03/2018 [facility] X-ray of chest, single view [id number] 05/03/2018 [facility] Hernia repair<sup>1</sup> [id number] 1980 & 1988 [facility] Neuro LASIK [id number] [facility] Provision of collar<sup>2</sup> [id number] collar bone fracture [facility] Assessment and Plan No Data Provided [...] or discomfort, temperature increase or decrease. 05/07/2018 [facility] Discharge Date 09/01/17 12:03pm Disposition HOME, SELF-CARE Instructions/Education Provided Diabetes and Diet Urinary Tract Infection - Men Prescriptions See Medication Section Referrals ABHIJIT LLOYD MD (Internal Medicine) Entered Date: 09/01/2017 10:06am Address: [address] [place] [id number] Note: Follow up in 1 week. Call office to make appointment. Additional Instructions/Education follow up with in 1 week. Call office to make an appointment. 09/01/2017 [facility] Social History Social History Date Source Social [...] Start Date Stop Date Never Smoker 05/07/2018 [facility] Social History TypeResponse Substance Abuse Use: None. Recreational Drug Route: Oral. Employment/School Status: Employed. Alcohol Current, Type Beer. Frequency: 3-5 times per week. Smoking Status Never smoker; Exposure to Tobacco Smoke None; Cigarette Smoking Last 365 Days No; Reg Smoking Cessation Counseling Yes entered on: 12/01/17 12/01/2017 [facility] No data available for this section 07/24/2017 [facility] No data available for this section 06/02/2017 [facility] Family History No Data Provided for This Section Advance Directives Order Name Results Value Date Source Advance Directives Advance Directives Directive Response Recorded Date/Time Does the patient have an advance directive? No 05/04/18 10:00pm If yes, is advance directive on file with [facility]? Yes 05/04/18 10:00pm If not on file with [facility] will patient provide a copy? Yes 05/04/18 10:00pm Do you have a Directive to Physician? Yes 05/03/18 3:58pm Do you have a Medical Power of Rug Layer? Yes 05/03/18 3:58pm Do you have an [...] rights and responsibilities? Yes 05/03/18 3:58pm 05/07/2018 [facility] Advance Directives Advance Directives Directive Response Recorded Date/Time Does the patient have an advance directive? Yes 08/29/17 9:42am If yes, is advance directive on file with [facility]? Yes 08/29/17 9:42am If not on file with [facility] will patient provide a copy? No 08/29/17 9:42am Do you have a Directive to Physician? No 08/29/17 12:49am Do you have a Medical Power of Rug Layer? No 08/29/17 12:49am Do you have an [...] rights and responsibilities? Yes 08/29/17 12:49am 09/01/2017 [facility] Functional Status No Data Provided for This Section
--- OUTSIDE RECORDS SUMMARY | 2018-10-31 03:41 | XMS REPORT | Clinical Summary ---
Author Author Alejandro [facility] Organization [place] [facility] Address Unknown Phone Unavailable Care Team Providers Care Boardinghouse Keeper Name Role Phone Donald Potts MD PCP [...] / Serial / Lot Implanted Type Area [facility] 11/22/2025 [id number] / / [id number] Screw Bone Canc Dome 6.5x25mm Ltxf Hip Joint Right: Knee DEPUY [place] - [id number] Implants ORTHO Implanted: Qty: 1 on 03/27/2016 by Silke Chowdary MD at [facility] 01/22/2026 [id number] / / [id number] Screw Bone Canc Dome 6.5x25mm Ltxf Hip Joint Right: Knee DEPUY [place] - [id number] Implants ORTHO Implanted: Qty: 1 on 03/27/2016 by Silke Chowdary MD at [facility] 10/23/2026 [id number] / / [id number] [place] Stem [id number] Fluted - IPM Right: Knee DEPUY [id number] IMPLANT ORTHOPAEDI Implanted: Qty: 1 on 04/16/2017 by [employer] Silke Chowdary MD at [facility] 12/23/2026 [id number] / / [id number] [place] Fem Slv Ful Por 40mm - IPM Right: Knee DEPUY [id number] IMPLANT ORTHOPAEDI Implanted: Qty: 1 on 04/16/2017 by [employer] Silke Chowdary MD at [facility] 11/22/2025 [id number] / / [id number] Srom [facility] Dist Aug Xs/S/ 10mm - IPM Right: Knee DEPUY [id number] IMPLANT ORTHOPAEDI Implanted: Qty: 1 on 04/16/2017 by [employer] Silke Chowdary MD at [facility] 11/22/2024 [id number] / / [id number] Srom [facility] Dist Aug Xs/S/ 10mm - IPM Right: Knee DEPUY [id number] IMPLANT ORTHOPAEDI Implanted: Qty: 1 on 04/16/2017 by [employer] Silke Chowdary MD at [facility] 10/23/2021 [id number] / / [id number] [facility]/Pin Med Rt 71x66 - IPM Right: Knee DEPUY [id number] IMPLANT ORTHOPAEDI Implanted: Qty: 1 on 04/16/2017 by [employer] Silke Chowdary MD at [facility] 10/24/2019 [id number] / / [id number] Lps Univ Tib Hin Ins Med 31mm - IPM Right: Knee DEPUY [id number] IMPLANT ORTHOPAEDI Implanted: Qty: 1 on 04/16/2017 by [employer] Silke Chowdary MD at [facility] 01/22/2026 [id number] / / [id number] Augment Fml P.F.C Sigma Distl Rt Sz Knee Joint Right: Knee DEPUY 5 4mm - [id number] Implants ORTHO Implanted: Qty: 1 on 03/27/2016 by Silke Chowdary MD at [facility] 01/22/2026 [id number] / / [id number] Stem Tib Cementd [id number] P.F.C Knee Joint Right: Knee DEPUY Sigma - [id number] Implants ORTHO Implanted: Qty: 1 on 03/27/2016 by Silke Chowdary MD at [facility] 10/22/2020 [id number] / / [id number] Augment Fml P.F.C Sigma Distl Rt Sz Knee Joint Right: Knee DEPUY 5 8mm - [id number] Implants ORTHO Implanted: Qty: 1 on 03/27/2016 by Silke Chowdary MD at [facility] 09/22/2025 [id number] / / [id number] Stem Tib Cementd 28p12gz Knee Joint Right: Knee DEPUY P.F.C.Sigma - [id number] Implants ORTHO Implanted: Qty: 1 on 03/27/2016 by Silke Chowdary MD at [facility] 12/23/2020 [id number] / / [id number] Patella Prosths Oval / Dome 3-Post Knee Joint Right: Knee DEPUY 38mm Std Uhmwpe - [id number] Implants ORTHO Implanted: Qty: 1 on 03/27/2016 by Silke Chowdary MD at [facility] 05/23/2020 [id number] / / [id number] Insert Tib Stblzd Rp Sz 5 25mm Knee Joint Right: Knee DEPUY P.F.C Sigma - [id number] Implants ORTHO Implanted: Qty: 1 on 03/27/2016 by Silke Chowdary MD at [facility] 02/22/2026 [id number] / / [id number] Tray Rev Mbt 5x53.1x80.6x61.8mm - Knee Joint Right: Knee DEPUY [id number] Implants ORTHO Implanted: Qty: 1 on 03/27/2016 by Silke Chowdary MD at [facility] 09/22/2025 [id number] / / [id number] Component Fml Rt N-Por Tc3 Sz 5 Knee Joint Right: Knee DEPUY [id number] P.F.C Sigma - [id number] Implants ORTHO Implanted: Qty: 1 on 03/27/2016 by Silke Chowdary MD at [facility] 01/22/2026 [id number] / / [id number] Adapter Fml P.F.C Sigma 5deg - Knee Joint Right: Knee DEPUY [id number] Implants ORTHO-KNEE Implanted: Qty: 1 on 03/27/2016 by Silke Gutierres MD at [facility] 11/22/2025 [id number] / / [id number] Adapter Fml P.F.C Sigma Ofst [place] Knee Joint Right: Knee DEPUY +2/-2mm - [id number] Implants ORTHO-KNEE Implanted: Qty: 1 on 03/27/2016 by Silke Gutierres MD at [facility] 01/22/2017 [id number] / / [id number] Cement Bone Hiviscocty 40gr Surgical Right: Knee DEPUY Smartset - [id number] Bone ORTHO Implanted: Qty: 2 on 03/27/2016 by Silke Monge MD at [facility] 12/23/2016 [id number] / / [id number] Cement Bone Hiviscocty 40gr Surgical Right: Knee DEPUY Smartset - [id number] Bone ORTHO Implanted: Qty: 1 on 03/27/2016 by Silke Monge MD at [facility] 10/23/2018 [id number] / / [id number] Cement Bone Hiviscocty 40gr Surgical Right: Knee DEPUY Smartset - [id number] Bone ORTHO Implanted: 04/16/2017 at [facility] (Quantity not on file) 12/24/2020 [id number] / / [id number] Cement Bone Prep Univl Insrtr Sculp Surgical Right: Knee SANDOR Fml [place] Suct Sm - [id number] Implants; INSTRUMENT Implanted: Qty: 1 on 03/27/2016 by [employer]; S Silke Chowdary MD at [facility] Extenders; Surgical Wires [id number] / / Immobilizer Knee Tripnl Dlx W/ Patl Surgical N/A: N/A DEROYAL Strp Univl Canvas 24in - [id number] Implants; INDUSTRIES Implanted: 04/16/2017 at [facility] Expanders; HOSPITAL (Quantity not on file) Extenders; Surgical Wires Results Not on fileafter 10/30/2017 Insurance Type Payer Benefit Subscriber ID Effective Phone Address Plan / Dates Group Workers Comp WORKERS COMP PARADIGM xxxxxxxxxxxxxxx 2015- HEALTH xxxxx Present ARNAV Guarantor Name Account Relation to Date of Phone Billing Address Type Patient [id number] Workers Employer 02/23/1900 [id number] (Home) [address] [address] Sukh Lozano Personal/F Self 1980 [id number] [employer] amily (Home) [address] [address] Sukh Lozano Third Self 1980 [id number] [employer] [place] (Home) [place] [address] Advance Directives For more information, please contact: [phone] Patient Buyer Assistant Explanation Type Date Recorded Advance Directives, Living Will and Medical Power of Crop Consultant Advance Directives, 04/05/2016 3:13 AM Living Will and Medical Power of Crop Consultant
[2018-10-31] MEDS ORDERED: ONDANSETRON HCL INJ 2MG/ML 2ML 2 MG/ML VIAL IV STA (03:44)
[2018-10-31] MEDS ORDERED: DEXTROSE 50% SYRINGE 50 ML IV PRN ×2 (04:00→08:15)
[2018-10-31] MEDS ORDERED: PROMETHAZINE 12.5MG/ NACL 0.9% 50 ML ONE (05:08)
[2018-10-31] MEDS ORDERED: SODIUM CHLORIDE 0.9% 1000ML 1,000 ML ONE (05:13)
[2018-10-31] MEDS ORDERED: SODIUM CHLORIDE 0.9% 1000ML 1,000 ML IV ONE (05:15)
[2018-10-31] MEDS ORDERED: PROMETHAZINE 12.5MG/ NACL 0.9% 12.5 MG/50 ML BAG IV ONE (05:15)
[2018-10-31] MEDS ORDERED: ACETAMINOPHEN 325 MG TAB ONE (05:38)
[2018-10-31] MEDS ORDERED: ACETAMINOPHEN 325 MG TAB PO ONE (05:45)
[2018-10-31] MEDS ORDERED: METOCLOPRAMIDE HCL 10 MG/2ML VIAL IV SCH (06:00)
[2018-10-31] MEDS ORDERED: MORPHINE SULFATE INJ 4 MG/ML INJ 1ML IV PRN (06:00)
[2018-10-31] MEDS ORDERED: ONDANSETRON HCL INJ 2MG/ML 2ML 2 MG/ML VIAL IV PRN (06:00)
[2018-10-31 06:55] LABS: BASOPHILS % 0.3 % (0.0-1.0); HEMATOCRIT 30.8 % (38.2-49.6); HEMOGLOBIN 9.9 g/dL (14.0-18.0); LYMPHOCYTES # (AUTO) 0.8 (1.0-3.2); LYMPHOCYTES % 12.4 % (18.0-39.1); MEAN CORPUSCULAR HEMOGLOBIN 27.4 pg (28-32); MEAN CORPUSCULAR HGB CONC 32.1 g/dL (31-35); MEAN CORPUSCULAR VOLUME 85.3 fL (81-99); MONOCYTES # (AUTO) 0.3 (0.2-0.8); MONOCYTES % 3.8 % (4.4-11.3); NEUTROPHILS # (AUTO) 5.6 (2.1-6.9); NEUTROPHILS % 82.3 % (38.7-80.0); PLATELET COUNT 108 x10e3/uL (140-360); RED BLOOD COUNT 3.61 x10e6/uL (4.3-5.7); RED CELL DISTRIBUTION WIDTH 15.9 % (11.7-14.4)
[2018-10-31] MEDS ORDERED: INSULIN REGULAR, HUMAN 100 UNIT/1 ML 3ML VIAL SQ SCH (07:30)
[2018-10-31 07:56] LABS: ALBUMIN 3.4 g/dL (3.5-5.0); ALBUMIN/GLOBULIN RATIO 0.8 (0.8-2.0); ANION GAP 18.8 mmol/L (8-16); CALCIUM 7.6 mg/dL (8.4-10.2); CREATININE, SERUM 4.32 mg/dL (0.72-1.25); POTASSIUM 4.8 mmol/L (3.5-5.1)
[2018-10-31] MEDS ORDERED: LACTULOSE SYRUP 20 GM/30 ML UDC PO PRN (08:15)
[2018-10-31] MEDS: AMYLAS/CELLU/LIPAS/PROTEA/BILE 12,000 UNIT CAP PO SCH ×4 (08:15→21:00)
[2018-10-31] MEDS: ONDANSETRON HCL INJ 2MG/ML 2ML 2 MG/ML VIAL IV PRN (08:23)
[2018-10-31 08:33] LABS: CREATINE KINASE MB 1.6 ng/mL (0-5.0)
[2018-10-31] MEDS: NIFEDIPINE CR 30 MG TAB PO SCH (09:00)
--- NOTE | 2018-10-31 09:00 | NUR ---
LEFT MESSAGE REGARDING NEW CONSULT FOR VAHE TRAMMELL
[2018-10-31] MEDS: MAGNESIUM OXIDE 400 MG TAB PO SCH ×2 (09:34→16:07)
[2018-10-31] MEDS: SODIUM CHLORIDE 0.45% 1,000 ML IV SCH ×2 (09:34→21:34)
[2018-10-31] MEDS: PIPERACILLIN/TAZO 2.25 GM 50 ML IV SCH ×4 (09:34→23:55)
[2018-10-31] MEDS: GABAPENTIN 300 MG CAP PO SCH ×3 (09:34→21:34)
[2018-10-31] MEDS: HYDROMORPHONE 1MG/1ML INJ IV PRN ×3 (10:07→20:20)
[2018-10-31] MEDS: INSULIN LISPRO 100 UNIT/1 ML 3ML VIAL SQ SCH ×3 (11:30→21:00)
[2018-10-31] MEDS: METOCLOPRAMIDE HCL 10 MG/2ML VIAL IV SCH ×3 (11:35→20:20)
[2018-10-31] MEDS: PANTOPRAZOLE 40 MG 10ML VIAL IV SCH (13:51)
[2018-10-31] MEDS: EPOETIN ALFA 10000 UNIT/ML VIAL SC SCH (13:51)
--- NOTE | 2018-10-31 14:30 | NUR ---
sent urine sample from suprapubic catheter for urine culture and UA orders
[2018-10-31 15:07] LABS: BILIRUBIN,URINE NEGATIVE (NEGATIVE); CLARITY,URINE SL CLOUDY (CLEAR); COLOR,URINE YELLOW (YELLOW); KETONES,URINE NEGATIVE (NEGATIVE); LEUKOCYTE ESTERASE ,URINE NEGATIVE (NEGATIVE); NITRITE,URINE NEGATIVE (NEGATIVE); URINE UROBILINOGEN 0.2 mg/dL (0.2 - 1)
[2018-10-31 15:11] LABS: PROTEIN,URINE DIPSTICK 3+ (NEGATIVE)
[2018-10-31 15:35] LABS: BACTERIA,URINE MANY /HPF; EPITHELIAL CELLS,URINE MANY /LPF; RBC,URINE >50 /HPF (0-5); WBC,URINE (MAN) >50 /HPF (0-5)
--- NOTE | 2018-10-31 17:23 | Consultation ---
DATE OF CONSULTATION: CHIEF COMPLAINT: Nausea, vomiting, hematemesis, and abdominal pain. HISTORY OF PRESENT ILLNESS: Very pleasant 38-year-old man with history of diabetes. The patient with multiple diabetic complications including neuropathies, neurogenic bladder, comes with nausea, vomiting, and epigastric pain. He also had one episode of hematemesis a few days ago. He has not been on PPIs. He has not been diagnosed with gastroparesis formally. He is currently on multiple medications including antibiotics. He also has a chronic pancreatitis. PAST MEDICAL HISTORY: Diabetes, pancreatitis. PAST SURGICAL HISTORY: See old records. FAMILY HISTORY: Noncontributory. SOCIAL HISTORY: At home. Toxic habits. MEDICATIONS: See list. PHYSICAL EXAMINATION: VITAL SIGNS: Blood pressure 140/80, pulse 70, and temperature 98. GENERAL: Well-nourished white man. HEENT: No pallor. HEART: Regular rate. LUNGS: Clear. ABDOMEN: Soft, nontender. EXTREMITIES: No edema. ASSESSMENT AND PLAN: Abdominal pain, nausea, vomiting. The patient may have a gastroparesis. I will recommend at this time PPIs. N.p.o. after midnight. EGD tomorrow. MD YOLANDA Juarez/MODL /[id number]
--- NOTE | 2018-10-31 18:52 | Consultation ---
DATE OF CONSULTATION: Renal Consult HISTORY OF PRESENT ILLNESS: This is a 38-year-old male with chronic kidney disease, currently now moreover stage IV, who comes back with nausea and vomiting. The patient have neurogenic bladder with suprapubic catheter. PAST MEDICAL HISTORY: Includes: 1. Chronic kidney disease, stage 4. 2. Type 2 diabetes mellitus, complicated by neuropathy. 3. Neurogenic bladder with suprapubic catheter. 4. Hypertension. 5. Anemia of chronic disease. PAST SURGICAL HISTORY: 1. Cataract surgery. 2. Cholecystectomy. 3. Right knee surgery. 4. Suprapubic catheter. SOCIAL HISTORY: No smoking, no alcohol, no drugs. FAMILY HISTORY: Positive for chronic kidney. ALLERGIES: NONE. MEDICATIONS: Please see list. REVIEW OF SYSTEMS: No change from his previous admission. The patient has been admitted every few weeks with similar complaint. PHYSICAL EXAMINATION: GENERAL: Alert, following commands. HEENT: Pupils are equal, react to accommodation. NECK: No JVD. No bruit. LUNGS: Rhonchi. No rales. HEART: Regular rate and rhythm. No S3, no S4. ABDOMEN: Nontender and nondistended. No hepatomegaly or splenomegaly. EXTREMITIES: No clubbing, no cyanosis, no edema. VITAL SIGNS: Blood pressure 149/92. LABORATORY DATA: White count 6.7, hemoglobin 9.9, hematocrit 30.80. Sodium 140, potassium 4.8, CO2 of 20, creatinine 4.32, GFR of 15. His baseline creatinine was 3.7 on 10/29/2018, it was 3.6 in October 26. Albumin 3.4. Urinalysis, many bacteria. ASSESSMENT AND PLAN: 1. Noedt-im-hozghyb kidney disease. The patient has chronic kidney disease, stage 4. The urine is pending culture. The patient have multiple and frequent recurrent urinary tract infections. Urology and Infectious Disease probably should be reconsulted and that is what happened on his last admission. Also, I believe that the patient is getting closer and closer to dialysis to evaluate if there is any recovery this visit. 2. Anemia of chronic disease. Would probably start Epogen. 3. Type 2 diabetes mellitus. We will monitor glucose. 4. Hypertension. Monitor blood pressure over the next few days. Mcaiel Chau MD MA/NOREEN /[id number]
[2018-11-01] VITALS (13 sets, daily range): BP systolic 102–168; BP diastolic 66–110
[2018-11-01] MEDS: ONDANSETRON HCL INJ 2MG/ML 2ML 2 MG/ML VIAL IV PRN ×2 (04:07→13:10)
[2018-11-01] MEDS: HYDROMORPHONE 1MG/1ML INJ IV PRN ×5 (04:09→23:55)
[2018-11-01] MEDS: SODIUM CHLORIDE 0.45% 1,000 ML IV SCH ×2 (05:56→15:35)
[2018-11-01] MEDS: PIPERACILLIN/TAZO 2.25 GM 50 ML IV SCH ×3 (05:56→17:14)
--- NOTE | 2018-11-01 06:08 | NUR ---
Offered to clean around suprapubic catheter site. Patient said he would do it himself. Provided supplies to clean around suprapubic cath site and provided education regarding importance of hygiene around catheter.
[2018-11-01 06:15] LABS: % IRON SATURATION 22 % (15-50); IRON 50 ug/dL (65-175); TOTAL IRON BINDING CAPACITY 232 ug/dL (261-478); TRANSFERRIN 166 mg/dL (174-364)
[2018-11-01] MEDS: METOCLOPRAMIDE HCL 10 MG/2ML VIAL IV SCH ×4 (06:16→21:16)
[2018-11-01 06:58] LABS: ANION GAP 15.8 mmol/L (8-16); CALCIUM 7.8 mg/dL (8.4-10.2); CREATININE, SERUM 4.18 mg/dL (0.72-1.25); POTASSIUM 4.8 mmol/L (3.5-5.1)
[2018-11-01] MEDS: INSULIN LISPRO 100 UNIT/1 ML 3ML VIAL SQ SCH ×4 (07:30→20:04)
--- NOTE | 2018-11-01 07:35 | NUR ---
After patient changed from [facility] into [facility], consent located, allergies verified, blood refusal consent signed and witnessed by 2 RNs, patient transferred to OR via bed.
[2018-11-01] MEDS: AMYLAS/CELLU/LIPAS/PROTEA/BILE 12,000 UNIT CAP PO SCH ×3 (09:00→21:16)
[2018-11-01] MEDS: MAGNESIUM OXIDE 400 MG TAB PO SCH ×2 (09:31→16:26)
[2018-11-01] MEDS: PANTOPRAZOLE 40 MG 10ML VIAL IV SCH (09:31)
[2018-11-01] MEDS: GABAPENTIN 300 MG CAP PO SCH ×3 (09:31→21:16)
[2018-11-01] MEDS: NIFEDIPINE CR 30 MG TAB PO SCH (09:32)
[2018-11-01] MEDS ORDERED: PROPOFOL IV EMULSION 10 MG/ML 20 ML VIAL ONE (14:26)
[2018-11-01] MEDS ORDERED: MIDAZOLAM HCL 2 MG/2 ML VIAL ONE (18:27)
[2018-11-01] MEDS ORDERED: HEPARIN 25,000 UNIT 1,000 UNIT in DEXTROSE 5% 250ML 250 ML IV SCH (19:00)
--- NOTE | 2018-11-01 19:00 | NUR ---
Report received. Assumed care. Assessment done. See interventions.
--- NOTE | 2018-11-01 20:08 | NUR ---
Requests HS snack. Blood sugar done early. S/S insulin given then snack given.
[2018-11-02] VITALS (15 sets, daily range): BP systolic 125–142; BP diastolic 76–98
[2018-11-02] MEDS: PIPERACILLIN/TAZO 2.25 GM 50 ML IV SCH ×4 (00:15→17:08)
[2018-11-02] MEDS: SODIUM CHLORIDE 0.45% 1,000 ML IV SCH (04:10)
[2018-11-02] MEDS ORDERED: AMIODARONE 900MG 500 ML IV ONE (04:12)
[2018-11-02] MEDS: HYDROMORPHONE 1MG/1ML INJ IV PRN ×4 (04:52→21:03)
[2018-11-02] MEDS: INSULIN LISPRO 100 UNIT/1 ML 3ML VIAL SQ SCH ×4 (07:30→21:18)
[2018-11-02] MEDS: ONDANSETRON HCL INJ 2MG/ML 2ML 2 MG/ML VIAL IV PRN (08:06)
[2018-11-02] MEDS: METOCLOPRAMIDE HCL 10 MG/2ML VIAL IV SCH ×4 (08:43→21:03)
[2018-11-02] MEDS: MAGNESIUM OXIDE 400 MG TAB PO SCH ×2 (08:43→16:28)
[2018-11-02] MEDS: PANTOPRAZOLE 40 MG 10ML VIAL IV SCH (08:43)
[2018-11-02] MEDS: NIFEDIPINE CR 30 MG TAB PO SCH (08:44)
[2018-11-02] MEDS: GABAPENTIN 300 MG CAP PO SCH ×3 (08:44→21:03)
[2018-11-02] MEDS: AMYLAS/CELLU/LIPAS/PROTEA/BILE 12,000 UNIT CAP PO SCH ×3 (09:00→21:03)
--- NOTE | 2018-11-02 19:00 | NUR ---
Report received. Assumed care. Assessment done. See interventions.
[2018-11-03] VITALS (12 sets, daily range): BP systolic 130–188; BP diastolic 83–111
[2018-11-03] MEDS: SODIUM CHLORIDE 0.45% 1,000 ML IV SCH ×2 (00:15→15:42)
[2018-11-03] MEDS: PIPERACILLIN/TAZO 2.25 GM 50 ML IV SCH ×4 (00:15→18:31)
[2018-11-03] MEDS: HYDROMORPHONE 1MG/1ML INJ IV PRN ×5 (00:40→20:48)
[2018-11-03 05:14] LABS: BASOPHILS % 0.7 % (0.0-1.0); EOSINOPHILS # (AUTO) 0.1 (0.0-0.4); EOSINOPHILS % 3.2 % (0.0-6.0); HEMATOCRIT 30.7 % (38.2-49.6); HEMOGLOBIN 9.9 g/dL (14.0-18.0); LYMPHOCYTES # (AUTO) 1.4 (1.0-3.2); LYMPHOCYTES % 30.5 % (18.0-39.1); MEAN CORPUSCULAR HEMOGLOBIN 27.7 pg (28-32); MEAN CORPUSCULAR HGB CONC 32.2 g/dL (31-35); MEAN CORPUSCULAR VOLUME 85.8 fL (81-99); MONOCYTES # (AUTO) 0.3 (0.2-0.8); MONOCYTES % 7.2 % (4.4-11.3); NEUTROPHILS # (AUTO) 2.6 (2.1-6.9); NEUTROPHILS % 57.9 % (38.7-80.0); PLATELET COUNT 100 x10e3/uL (140-360); RED BLOOD COUNT 3.58 x10e6/uL (4.3-5.7); RED CELL DISTRIBUTION WIDTH 16.7 % (11.7-14.4)
[2018-11-03 05:44] LABS: ANION GAP 16.9 mmol/L (8-16); CALCIUM 7.9 mg/dL (8.4-10.2); CREATININE, SERUM 4.14 mg/dL (0.72-1.25); PHOSPHORUS 5.4 MG/DL (2.3-4.7); POTASSIUM 4.9 mmol/L (3.5-5.1)
[2018-11-03] MEDS: INSULIN LISPRO 100 UNIT/1 ML 3ML VIAL SQ SCH ×4 (07:30→22:02)
[2018-11-03] MEDS: METOCLOPRAMIDE HCL 10 MG/2ML VIAL IV SCH ×4 (08:17→20:37)
[2018-11-03] MEDS: NIFEDIPINE CR 30 MG TAB PO SCH (08:41)
[2018-11-03] MEDS: MAGNESIUM OXIDE 400 MG TAB PO SCH ×2 (08:41→17:25)
[2018-11-03] MEDS: GABAPENTIN 300 MG CAP PO SCH ×3 (08:41→20:37)
[2018-11-03] MEDS: PANTOPRAZOLE 40 MG 10ML VIAL IV SCH (08:41)
[2018-11-03] MEDS: AMYLAS/CELLU/LIPAS/PROTEA/BILE 12,000 UNIT CAP PO SCH ×3 (08:41→20:37)
[2018-11-03] MEDS: CALCIUM CARBONATE 500 MG CHEWABLE TABS PO SCH ×2 (11:25→17:25)
[2018-11-03] MEDS: PROMETHAZINE 12.5MG/ NACL 0.9% 12.5 MG/50 ML BAG IV PRN (15:30)
[2018-11-04] VITALS (12 sets, daily range): BP systolic 122–198; BP diastolic 89–110
[2018-11-04] MEDS: PIPERACILLIN/TAZO 2.25 GM 50 ML IV SCH ×4 (00:24→17:22)
[2018-11-04] MEDS: HYDROMORPHONE 1MG/1ML INJ IV PRN ×7 (00:30→22:50)
[2018-11-04] MEDS: ONDANSETRON HCL INJ 2MG/ML 2ML 2 MG/ML VIAL IV PRN (00:30)
[2018-11-04 05:23] LABS: CALCIUM 7.7 mg/dL (8.4-10.2); CREATININE, SERUM 3.87 mg/dL (0.72-1.25)
--- NOTE | 2018-11-04 06:11 | NUR ---
Left voicemail for Dr. Potts regarding consistent high BP with systolic in the 190s. BP 195/106. No return call. Called Dr. Potts again at 0610 regarding BP 193/115 to notify of hypertension. interrupted stating "he's fine". Told Dr. Potts that BP was 193/115 and asked for PRN. Dr. Potts said "he's fine. thank you" and hung up. Will continue to monitor.
[2018-11-04] MEDS ORDERED: VELTASSA PO (06:56)
[2018-11-04] MEDS: INSULIN LISPRO 100 UNIT/1 ML 3ML VIAL SQ SCH ×4 (07:52→21:00)
[2018-11-04] MEDS: SODIUM CHLORIDE 0.45% 1,000 ML IV SCH (07:57)
[2018-11-04] MEDS: METOCLOPRAMIDE HCL 10 MG/2ML VIAL IV SCH ×4 (08:03→21:19)
[2018-11-04] MEDS: CALCIUM CARBONATE 500 MG CHEWABLE TABS PO SCH ×3 (08:03→16:31)
[2018-11-04] MEDS: NIFEDIPINE CR 30 MG TAB PO SCH (08:04)
[2018-11-04] MEDS: AMYLAS/CELLU/LIPAS/PROTEA/BILE 12,000 UNIT CAP PO SCH ×3 (08:04→22:39)
[2018-11-04] MEDS: PANTOPRAZOLE 40 MG 10ML VIAL IV SCH (08:04)
[2018-11-04] MEDS: GABAPENTIN 300 MG CAP PO SCH ×3 (08:04→21:19)
[2018-11-04] MEDS: SODIUM BICARBONATE 650 MG TAB PO SCH (08:04)
[2018-11-04] MEDS: MAGNESIUM OXIDE 400 MG TAB PO SCH ×2 (08:04→16:31)
[2018-11-04] MEDS: FAMOTIDINE 20 MG TAB PO SCH (16:31)
--- NOTE | 2018-11-04 20:20 | NUR ---
Report called to PRUDENCE Nolasco at 2010. All questions and orders conveyed and answered at this time. Patient transferred via stretcher to room 203 at 2019. No s/s distress, VSS, pain level at a 3/10 tolerable for this patient. Prior to transfer li bag emptied and suprapubic site observed with no complications. Patient explained plan of care and treatment. Acknowledged with no questions. Home medication given to PRUDENCE Nolasco upon transfer.
[2018-11-04] MEDS: VELTASSA PO SCH (21:19)
[2018-11-04] MEDS: METOPROLOL SUCCINATE 25 MG TAB XL PO SCH (21:20)
[2018-11-05] VITALS (8 sets, daily range): BP systolic 168–194; BP diastolic 99–117
[2018-11-05] MEDS: PIPERACILLIN/TAZO 2.25 GM 50 ML IV SCH ×3 (00:05→12:30)
[2018-11-05] MEDS: SODIUM CHLORIDE 0.45% 1,000 ML IV SCH (00:37)
[2018-11-05] MEDS: HYDROMORPHONE 1MG/1ML INJ IV PRN ×6 (01:27→23:31)
[2018-11-05] MEDS: HYDRALAZINE HCL 20 MG/ML VIAL IV PRN ×4 (01:27→21:07)
[2018-11-05] MEDS: METOCLOPRAMIDE HCL 10 MG/2ML VIAL IV SCH ×4 (05:13→21:06)
[2018-11-05] MEDS: INSULIN LISPRO 100 UNIT/1 ML 3ML VIAL SQ SCH ×4 (07:30→21:00)
[2018-11-05] MEDS: FAMOTIDINE 20 MG TAB PO SCH ×2 (07:30→16:30)
[2018-11-05] MEDS: CALCIUM CARBONATE 500 MG CHEWABLE TABS PO SCH ×3 (08:00→17:00)
[2018-11-05 08:34] LABS: ALBUMIN/GLOBULIN RATIO 0.7 (0.8-2.0); ANION GAP 13.9 mmol/L (8-16); CALCIUM 8.3 mg/dL (8.4-10.2); CREATININE, SERUM 3.44 mg/dL (0.72-1.25); POTASSIUM 4.9 mmol/L (3.5-5.1)
[2018-11-05] MEDS: AMYLAS/CELLU/LIPAS/PROTEA/BILE 12,000 UNIT CAP PO SCH ×3 (08:38→21:06)
[2018-11-05] MEDS: GABAPENTIN 300 MG CAP PO SCH ×3 (08:39→21:06)
[2018-11-05] MEDS: MAGNESIUM OXIDE 400 MG TAB PO SCH ×2 (08:39→17:00)
[2018-11-05] MEDS ORDERED: VELTASSA PO SCH (09:00)
[2018-11-05] MEDS: SODIUM BICARBONATE 650 MG TAB PO SCH (09:00)
[2018-11-05] MEDS: NIFEDIPINE CR 30 MG TAB PO SCH (09:00)
[2018-11-05] MEDS: PROMETHAZINE 12.5MG/ NACL 0.9% 12.5 MG/50 ML BAG IV PRN (10:26)
[2018-11-05] MEDS: PANTOPRAZOLE 40 MG 10ML VIAL IV SCH (10:26)
--- NOTE | 2018-11-05 13:44 | NUR ---
Nutrition LOS Note RD Recommendation for Physician: - Rec renal diabetic diet as medically appropriate Plan of Care: RD following, monitoring for tolerance and adequacy Nutrition reason for involvement: LOS Primary Diagnose(s): Xhyyr-fh-squrtat kidney disease PMH: 1. Chronic kidney disease, stage 4. 2. Type 2 diabetes mellitus, complicated by neuropathy. 3. Neurogenic bladder with suprapubic catheter. 4. Hypertension. 5. Anemia of chronic disease. Ht: 71in Wt: 199.44lb BMI: 27.8kg/m2 IBW: 172lb +/- 10% RD Assessment: (11/05) Chart reviewed. Labs and meds reviewed. 38yo M, who was admitted for acute on chronic kidney disease. Pt was well known to me from his recent admission. Visited pt in the room. Unable to obtain too much info as pt appeared to be fatigue. Pt reported fair appetite without any GI complains. NPO for procedure. Pt was not interested in any oral nutrition supplement during my time of visit. No other question at this time. Current Diet: NPO Malnutrition Evaluation (11/05) The patient does not meet criteria for a specified degree of malnutrition at this time. Will re-evaluate at follow-up as appropriate. Diet Education Needs Assessment: Diet education not indicated. Pt received diet education on his recent admission in 09/2018. Nutrition Care Level: low Signed: Lupe Germain, , RD, LD
[2018-11-05] MEDS ORDERED: FENTANYL CITRATE/PF 100MCG/2 ML INJ ONE (14:38)
[2018-11-05] MEDS ORDERED: MIDAZOLAM HCL 2 MG/2 ML VIAL ONE (14:38)
--- NOTE | 2018-11-05 16:20 | NUR ---
Taken for procedure. No s/s of acute distress noted
[2018-11-05] MEDS ORDERED: IOPAMIDOL 610MG/1ML 300 MG/ML VIAL IV ONE (17:18)
[2018-11-05] MEDS ORDERED: NEOSTIGMINE 1 MG/ML 10ML VIAL ONE (17:56)
[2018-11-05] MEDS ORDERED: BUPIVACAINE 0.25% 30ML SDV INJ ONE (17:57)
[2018-11-05] MEDS ORDERED: PROPOFOL IV EMULSION 10 MG/ML 20 ML VIAL ONE (18:06)
[2018-11-05] MEDS ORDERED: ONDANSETRON HCL INJ 2MG/ML 2ML 2 MG/ML VIAL ONE (18:06)
[2018-11-05] MEDS ORDERED: SEVOFLURANE INHAL SOLN 250 ML PEN BTL ONE (18:06)
[2018-11-05] MEDS ORDERED: DEXAMETHASONE SOD PHOS INJ 4 MG/ML VIAL ONE (18:06)
[2018-11-05] MEDS ORDERED: LIDOCAINE HCL 2% LOCAL INJ 5 ML SDV VIAL INJ ONE (18:06)
[2018-11-05] MEDS ORDERED: B&O 60MG R/S 60 MG SUPP PR ONE (18:16)
--- NOTE | 2018-11-05 19:36 | NUR ---
RECEIVED PATIENT FROM RECOVERY. PATIENT REPORTS FEELING COLD AND SHAKING, BLANKETS PROVIDED. PAIN 09/01. LUNGS CLEAR. NEW SUPRAPUBIC CATHETER DRAINING LIGHT RED URINE TO GRAVITY. DRESSINGS C/D/I. BED LOCKED IN LOWEST POSITION, SIDE RAILS UPX2, CALL LIGHT IN REACH.
--- NOTE | 2018-11-05 19:40 | NUR ---
Report given to oncoming nurse of patient's status. Patient not back from procedure.
--- NOTE | 2018-11-05 20:10 | NUR ---
PAGED MD MAY FOR ORDERS TO RESUME PRE-OP DIET. AWAITING CALL BACK.
[2018-11-05] MEDS: METOPROLOL SUCCINATE 25 MG TAB XL PO SCH (21:06)
[2018-11-05] MEDS: VELTASSA PO SCH (22:00)
[2018-11-05] MEDS: ONDANSETRON HCL INJ 2MG/ML 2ML 2 MG/ML VIAL IV PRN (23:31)
[2018-11-06] VITALS (8 sets, daily range): BP systolic 107–187; BP diastolic 62–102
[2018-11-06] MEDS: PIPERACILLIN/TAZO 2.25 GM 50 ML IV SCH ×4 (00:24→18:11)
[2018-11-06] MEDS: HYDROMORPHONE 1MG/1ML INJ IV PRN ×4 (02:35→21:08)
[2018-11-06] MEDS: ONDANSETRON HCL INJ 2MG/ML 2ML 2 MG/ML VIAL IV PRN ×2 (03:30→09:46)
[2018-11-06 05:27] LABS: BASOPHILS % 0.4 % (0.0-1.0); EOSINOPHILS # (AUTO) 0.1 (0.0-0.4); EOSINOPHILS % 1.7 % (0.0-6.0); HEMATOCRIT 34.1 % (38.2-49.6); HEMOGLOBIN 10.8 g/dL (14.0-18.0); LYMPHOCYTES # (AUTO) 0.8 (1.0-3.2); LYMPHOCYTES % 15.1 % (18.0-39.1); MEAN CORPUSCULAR HEMOGLOBIN 27.3 pg (28-32); MEAN CORPUSCULAR HGB CONC 31.7 g/dL (31-35); MEAN CORPUSCULAR VOLUME 86.3 fL (81-99); MONOCYTES # (AUTO) 0.2 (0.2-0.8); MONOCYTES % 4.5 % (4.4-11.3); NEUTROPHILS # (AUTO) 4.2 (2.1-6.9); NEUTROPHILS % 78.1 % (38.7-80.0); PLATELET COUNT 121 x10e3/uL (140-360); RED BLOOD COUNT 3.95 x10e6/uL (4.3-5.7); RED CELL DISTRIBUTION WIDTH 16.9 % (11.7-14.4)
[2018-11-06 05:56] LABS: CALCIUM 8.3 mg/dL (8.4-10.2); CREATININE, SERUM 3.49 mg/dL (0.72-1.25)
[2018-11-06] MEDS: METOCLOPRAMIDE HCL 10 MG/2ML VIAL IV SCH ×4 (06:31→21:07)
[2018-11-06] MEDS: FAMOTIDINE 20 MG TAB PO SCH ×2 (06:31→16:30)
--- NOTE | 2018-11-06 07:25 | NUR ---
Rounds with outgoing nurse during this time and dressing to penis noted to be off
[2018-11-06] MEDS: INSULIN LISPRO 100 UNIT/1 ML 3ML VIAL SQ SCH ×4 (07:30→21:10)
--- NOTE | 2018-11-06 07:30 | NUR ---
Received patient this morning and a/ox3, no resp distress, call light within reach and will monitor.
--- NOTE | 2018-11-06 09:30 | NUR ---
Potassium elevated and attending notified, orders in place.
[2018-11-06] MEDS: HYDRALAZINE HCL 20 MG/ML VIAL IV PRN (09:45)
[2018-11-06] MEDS: NIFEDIPINE CR 30 MG TAB PO SCH (09:58)
[2018-11-06] MEDS: AMYLAS/CELLU/LIPAS/PROTEA/BILE 12,000 UNIT CAP PO SCH ×3 (09:58→21:07)
[2018-11-06] MEDS: CALCIUM CARBONATE 500 MG CHEWABLE TABS PO SCH ×3 (09:58→17:00)
[2018-11-06] MEDS: MAGNESIUM OXIDE 400 MG TAB PO SCH ×2 (09:58→17:00)
[2018-11-06] MEDS: GABAPENTIN 300 MG CAP PO SCH (09:58)
[2018-11-06] MEDS: PANTOPRAZOLE 40 MG 10ML VIAL IV SCH (09:58)
[2018-11-06] MEDS ORDERED: SOD POLYSTYRENE SULFONATE SUSP 15 GM/60 ML BTL PO ONE (10:00)
[2018-11-06] MEDS: SODIUM CHLORIDE 0.45% 1,000 ML IV SCH ×2 (11:38→11:44)
[2018-11-06] MEDS: PROMETHAZINE 12.5MG/ NACL 0.9% 12.5 MG/50 ML BAG IV PRN (11:45)
[2018-11-06] MEDS: SODIUM BICARBONATE 650 MG TAB PO SCH (17:00)
--- NOTE | 2018-11-06 18:09 | NUR ---
Changed dressing to penis, changed dressing to S/P stoma, scant bloody drainage, SP cath in place, draining yellow urine. Patient with episode of large incontinence stool an assisted with care, back in bed, will monitor.
--- NOTE | 2018-11-06 19:00 | NUR ---
RECEIVED PATIENT IN REPORT. PATIENT CONTINUES TO HAVE LOOSE STOOL, ASKED FOR MEDICATION TO STOP IT, EXPLAINED HE IS HAVING DIARRHEA BECAUSE OF THE MEDICATION TO LOWER POTASSIUM. PATIENT VERBALIZED UNDERSTANDING. PATIENT REMOVED DRESSING TO PENIS, STATING IT WAS UNCOMFORTABLE. NO NEW DRAINAGE NOTED. R HAND 20G IV ASYMPTOMATIC, INTACT, AND PATENT, RUNNING 1/2 NS @ 60ML/HR. STATES PAIN IS STILL 7/10, WILL PROVIDE MEDICATION WHEN IT IS TIME. NO S&S OF DISTRESS NOTED. BED LOCKED IN LOWEST POSITION, SIDE RAILS UPX2, CALL LIGHT IN REACH.
[2018-11-06] MEDS: METOPROLOL SUCCINATE 25 MG TAB XL PO SCH (21:07)
[2018-11-06] MEDS: VELTASSA PO SCH (21:07)
[2018-11-07] VITALS (8 sets, daily range): BP systolic 138–170; BP diastolic 88–99
[2018-11-07] MEDS: PIPERACILLIN/TAZO 2.25 GM 50 ML IV SCH ×4 (00:17→17:40)
[2018-11-07] MEDS: HYDROMORPHONE 1MG/1ML INJ IV PRN ×3 (00:22→06:35)
[2018-11-07] MEDS: HYDRALAZINE HCL 20 MG/ML VIAL IV PRN ×2 (03:58→23:14)
[2018-11-07] MEDS: SODIUM CHLORIDE 0.45% 1,000 ML IV SCH ×2 (05:20→23:14)
[2018-11-07 06:42] LABS: ANION GAP 13.1 mmol/L (8-16); CREATININE, SERUM 3.53 mg/dL (0.72-1.25); POTASSIUM 4.1 mmol/L (3.5-5.1)
[2018-11-07] MEDS: METOCLOPRAMIDE HCL 10 MG/2ML VIAL IV SCH ×4 (07:30→21:39)
[2018-11-07] MEDS: INSULIN LISPRO 100 UNIT/1 ML 3ML VIAL SQ SCH ×4 (07:30→21:45)
[2018-11-07] MEDS: FAMOTIDINE 20 MG TAB PO SCH ×2 (07:30→17:10)
[2018-11-07] MEDS: CALCIUM CARBONATE 500 MG CHEWABLE TABS PO SCH ×3 (08:00→17:10)
[2018-11-07] MEDS: SODIUM BICARBONATE 650 MG TAB PO SCH ×2 (09:17→17:10)
[2018-11-07] MEDS: PANTOPRAZOLE 40 MG 10ML VIAL IV SCH (09:17)
[2018-11-07] MEDS: MAGNESIUM OXIDE 400 MG TAB PO SCH ×2 (09:17→17:10)
[2018-11-07] MEDS: AMYLAS/CELLU/LIPAS/PROTEA/BILE 12,000 UNIT CAP PO SCH ×3 (09:17→21:39)
[2018-11-07] MEDS: NIFEDIPINE CR 30 MG TAB PO SCH (09:18)
[2018-11-07] MEDS: ONDANSETRON HCL INJ 2MG/ML 2ML 2 MG/ML VIAL IV PRN (11:01)
[2018-11-07] MEDS: EPOETIN ALFA 10000 UNIT/ML VIAL SC SCH (11:01)
[2018-11-07] MEDS: HYDROCODONE/APAP 10MG-325MG TAB PO PRN ×2 (11:01→17:00)
[2018-11-07] MEDS: BACITRACIN/POLYMYXIN 30 GM OINT TP SCH (17:32)
--- NOTE | 2018-11-07 19:00 | NUR ---
RECEIVED PATIENT IN BEDSIDE REPORT. PATIENT RESTING IN BED. STATES PAIN IS NOT BAD YESTERDAY. SUPRAPUBIC CATHETER DRAINING TO GRAVITY, CLEAR, PALE, YELLOW URINE NOTED. NO S&S OF DISTRESS NOTED. BED LOCKED IN LOWEST POSITION, SIDE RAILS UPX2, CALL LIGHT IN REACH.
[2018-11-07] MEDS ORDERED: ACETAMINOPHEN/CODEINE 300MG - 30MG TAB PO PRN (19:45)
[2018-11-07] MEDS: VELTASSA PO SCH (21:39)
[2018-11-07] MEDS: METOPROLOL SUCCINATE 25 MG TAB XL PO SCH (21:39)
[2018-11-08] VITALS: BP_SYST 17
[2018-11-08] MEDS: PIPERACILLIN/TAZO 2.25 GM 50 ML IV SCH ×2 (00:07→06:25)
[2018-11-08 04:00] VITALS: BP 161/93
[2018-11-08 05:16] LABS: BASOPHILS % 0.7 % (0.0-1.0); EOSINOPHILS # (AUTO) 0.2 (0.0-0.4); EOSINOPHILS % 4.9 % (0.0-6.0); HEMATOCRIT 34.1 % (38.2-49.6); LYMPHOCYTES # (AUTO) 1.2 (1.0-3.2); LYMPHOCYTES % 27.4 % (18.0-39.1); MEAN CORPUSCULAR HEMOGLOBIN 27.9 pg (28-32); MEAN CORPUSCULAR HGB CONC 32.3 g/dL (31-35); MEAN CORPUSCULAR VOLUME 86.5 fL (81-99); MONOCYTES # (AUTO) 0.3 (0.2-0.8); MONOCYTES % 7.6 % (4.4-11.3); NEUTROPHILS # (AUTO) 2.7 (2.1-6.9); PLATELET COUNT 101 x10e3/uL (140-360); RED BLOOD COUNT 3.94 x10e6/uL (4.3-5.7); RED CELL DISTRIBUTION WIDTH 15.9 % (11.7-14.4)
[2018-11-08 05:37] LABS: ANION GAP 14.6 mmol/L (8-16); CALCIUM 8.4 mg/dL (8.4-10.2); CREATININE, SERUM 3.35 mg/dL (0.72-1.25); POTASSIUM 4.6 mmol/L (3.5-5.1)
[2018-11-08 06:21] LABS: EOSINOPHILS % (MANUAL) 3 % (0-7); LYMPHOCYTES % (MANUAL) 17 % (19-48); MONOCYTES % (MANUAL) 9 % (3.4-9.0); NEUTROPHILS % (MANUAL) 71 % (40-74); PLATELET ESTIMATE MARKEDLY INCREASED; RBC MORPHOLOGY COMMENT NORMAL
[2018-11-08 06:23] LABS: PLATELET MORPHOLOGY COMMENT FEW LARGE
--- NOTE | 2018-11-08 07:15 | NUR ---
Walking rounds complete and patient is sitting up in bed and has no complaints of pain. The patient has a supra pubic catheter and is awaiting discharge home. Patients circumcision site is clean and patient educated on how to care for site.
[2018-11-08 08:00] VITALS: BP 169/92
[2018-11-08] MEDS: METOCLOPRAMIDE HCL 10 MG/2ML VIAL IV SCH (09:02)
[2018-11-08] MEDS: FAMOTIDINE 20 MG TAB PO SCH (09:02)
[2018-11-08] MEDS: INSULIN LISPRO 100 UNIT/1 ML 3ML VIAL SQ SCH (09:03)
[2018-11-08] MEDS: AMYLAS/CELLU/LIPAS/PROTEA/BILE 12,000 UNIT CAP PO SCH (09:04)
[2018-11-08] MEDS: PANTOPRAZOLE 40 MG 10ML VIAL IV SCH (09:04)
[2018-11-08] MEDS: MAGNESIUM OXIDE 400 MG TAB PO SCH (09:04)
[2018-11-08] MEDS: NIFEDIPINE CR 30 MG TAB PO SCH (09:05)
[2018-11-08] MEDS: SODIUM BICARBONATE 650 MG TAB PO SCH (09:05)
[2018-11-08] MEDS: BACITRACIN/POLYMYXIN 30 GM OINT TP SCH (09:05)
[2018-11-08 10:47] VITALS: BP 169/92
--- NOTE | 2018-11-08 11:15 | NUR ---
Patient PIV removed intact from Left Forearm, no bleeding noted. The patient was given a leg bag to go home with and he knows how to remove the li and connect leg bag. Discharge instruction given to patient and he verbalized understanding. The patient was taken to car in a wheelchair escorted by PCT.
--- NOTE | 2018-11-09 07:43 | Discharge Summary ---
CONSULTANTS: 1. Dr. Lew Karimi. 2. Dr. Castro Jalloh. 3. Dr. Andrzej Willard. DIAGNOSES: 1. Status post intractable nausea and vomiting associated with epigastric pain. 2. Status post EGD finding of gastritis. 3. Baseline gastroparesis secondary to diabetes type 1. 4. Chronic kidney disease stage 4 with episodic increase in potassium level corrected. 5. Status post cystoscopy with finding of bilateral ureteral obstruction at [facility]. No intervention was done. HISTORY OF PRESENT ILLNESS: The patient is a 31-mxvh-yhcu with chronic kidney disease stage 4. The patient also had diabetes type 1, on insulin therapy, came in with intractable nausea and vomiting. The patient was dehydrated. He has gastroparesis. He failed outpatient treatment. The patient also has suprapubic catheter chronically. He does have urinary tract infection. The patient is doing better with IV fluid rehydration and also medication for nausea. Blood pressure was very elevated with hypertensive urgency due to the nausea and vomiting. The patient had an EGD done with no significant bleed or any mass effect. No obstruction. He does have gastritis. The patient has also subsequently underwent cystoscopy done by Dr. Castro Jalloh on November 05, 2018, confirmed bilateral ureteral obstruction at [facility]. No stent placement due to the patient's infection. The patient is otherwise stable at this time. He is comfortable. Lab work shown that the patient's BUN and creatinine of 30 and 3.35. Sodium is 135, potassium is 4.6, chloride 106, bicarb 19. WBC is 4.5, hemoglobin 11, hematocrit 34, platelets is 101. The patient is otherwise stable. He will be discharged today, follow up as an outpatient. He will resume his home medication. No further plan at this time. The patient is to follow up closely. MD SADA Haywood/NOREEN /[id number]
--- NOTE | 2018-12-13 03:33 | Operative Report ---
DATE OF PROCEDURE: 11/05/2018 SURGEON: Castro Jalloh MD PREOPERATIVE DIAGNOSES: 1. Severe phimosis. 2. Urinary retention. 3. Suprapubic cystostomy. 4. Urinary tract infections. 5. Microscopic hematuria. POSTOPERATIVE DIAGNOSES: 1. Severe phimosis. 2. Urinary retention. 3. Suprapubic cystostomy. 4. Urinary tract infections. 5. Microscopic hematuria. OPERATIONS PERFORMED: 1. Circumcision. 2. Penile nerve block (separate procedure performed for postoperative pain control and not required for the actual performance of the surgery done under general anesthesia). 3. Change of cystostomy tube (separate procedure performed for diagnosis of cystostomy tube and urinary retention). 4. Cystourethroscopy with bilateral ureteral catheterization and retrograde ureteropyelography (separate procedure performed for urinary tract infections and microhematuria). 5. Interpretation of retrograde ureteropyelography. 6. Supervision of fluoroscopy, no radiologist present. ANESTHESIA: General. COMPLICATIONS: None. CLINICAL SUMMARY: Please refer to the chart for details of this complicated patient. OPERATIVE PROCEDURE IN DETAIL: Informed consent was verified. Sukh Lozano was properly identified, taken to the operating room, placed on the cystoscopy table in supine position. Anesthesia was uneventfully begun. The patient's cystostomy tube was removed and the patient's abdomen and genitalia were prepared and draped in usual sterile fashion. A new Barcenas catheter was then advanced into the cystostomy tract as we upsized the current catheter. We then filled the balloon with 10 mL of sterile water and irrigated it to and fro to ensure it worked properly, which it did. Marcaine without epinephrine was then utilized to infiltrate subcutaneously circumferentially on the base of the penis as well as in the region of the dorsal penile nerves. This is done for postoperative pain control and not required for the actual performance of surgery, which was done under general anesthesia. A circumferential incision was then made overlying the guadalupe of the glans penis. The foreskin was fully retracted. Following the dorsal slit, the patient's genitalia were then re-prepared with Betadine. Severe balanoposthitis was noted. Secondary incision was then made approximately 5 mm away from the guadalupe of the glans penis along the inner preputial skin. A sleeve circumcision was then performed. Foreskin was removed. Pinpoint electrocautery was utilized to achieve hemostasis. The patient's incision was then approximated with 4-0 chromic suture with an excellent cosmetic result. The patient was then carefully and gently repositioned in dorsal lithotomy position with all pressure points well padded. His genitalia were redraped. The cystoscope sheath with obturator in place was atraumatically inserted into the patient's urethra. It was guided down the unremarkable distal urethra through the bulbar region, which exhibited scarring, but no evidence of obstruction. We went to the patient's prostate bed and into the patient's bladder. Panendoscopy revealed suprapubic cystostomy and signs of chronic cystitis. No suspicious lesions were identified. An 8-Bhutanese catheter was used to cannulate each ureter and retrograde ureteral pyelograms were performed. Interpretation of retrograde ureteropyelography contrast was instilled in a retrograde fashion bilaterally. There was chronic-appearing hydroureteronephrosis down to the level of the bladder wall. There were no suspicious lesions and contrast could be seen draining across this thickened bladder wall, but it did not do so with normal speed indicating chronic partial obstruction. The patient's bladder was drained. Cystoscope was withdrawn. Sterile dressings were applied of bacitracin ointment followed by Xeroform gauze, followed by loose-fitting [place], and the patient was uneventfully reversed from anesthesia and taken to recovery room in stable condition. There were no complications to the procedure. He tolerated the procedure well. Sponge, needle, and instrument counts were of course correct x2 at the end of the case. Estimated blood loss was minimal. We will follow up as well as ongoing urological followup for suprapubic cystostomy changes as well as evaluation of the patient's renal drainage. Lasix sonography will be performed in the future as long as the patient's renal function allows. Castro MD Shubham [place]/NOREEN /[id number]
== END 2018-11-08 11:44 | disposition home or self-care (01) | DRG 74 ==
LOC: ER 22:26 → ERHOLD 10-31 03:34 → ICU 10-31 06:08 → MED/SURG2 11-04 20:24
PROVIDERS: ADMIT Internal Medicine; ATTEND Internal Medicine
PROC: 0DB78ZX Excision of Stomach, Pylorus, Via Natural or Artificial Opening Endoscopic, Diagnostic (ICD-10-PCS; 2018-11-01)
PROC: 0DB38ZX Excision of Lower Esophagus, Via Natural or Artificial Opening Endoscopic, Diagnostic (ICD-10-PCS; principal; 2018-11-01 07:44)
PROC: 0VTTXZZ Resection of Prepuce, External Approach (ICD-10-PCS; 2018-11-05)
PROC: 0T2BX0Z Change Drainage Device in Bladder, External Approach (ICD-10-PCS; 2018-11-05)
PROC: 0T788ZZ Dilation of Bilateral Ureters, Via Natural or Artificial Opening Endoscopic (ICD-10-PCS; 2018-11-05)
PROC: BT141ZZ Fluoroscopy of Kidneys, Ureters and Bladder using Low Osmolar Contrast (ICD-10-PCS; 2018-11-05)
DX: E11.43 Type 2 diabetes mellitus with diabetic autonomic (poly)neuropathy (principal); N17.9 Acute kidney failure, unspecified; K86.1 Other chronic pancreatitis; N39.0 Urinary tract infection, site not specified; N13.30 Unspecified hydronephrosis; N18.4 Chronic kidney disease, stage 4 (severe); I12.9 Hypertensive chronic kidney disease with stage 1 through stage 4 chronic kidney disease, or unspecified chronic kidney disease; E11.22 Type 2 diabetes mellitus with diabetic chronic kidney disease; K29.70 Gastritis, unspecified, without bleeding; K44.9 Diaphragmatic hernia without obstruction or gangrene; K21.0 Gastro-esophageal reflux disease with esophagitis; N31.9 Neuromuscular dysfunction of bladder, unspecified; K31.84 Gastroparesis; Z79.4 Long term (current) use of insulin; N32.0 Bladder-neck obstruction; N47.6 Balanoposthitis; R31.29 Other microscopic hematuria; E86.0 Dehydration; D63.8 Anemia in other chronic diseases classified elsewhere
CPT/HCPCS: 36415; 43239; 74176; 74420; 80048; 80053; 81001; 82550; 82553; 82948; 83540; 83735; 84100; 84132; 84466; 84484; 85025; 87040; 87086; 88304; 88305; 88312; 96372; 96374; 99284; C1758; J0360; J1100; J1170; J2001; J2250; J2270; J2405; J2543; J2550; J2710; J2765; J3010; J7030; Q4081

== ENCOUNTER 2018-11-11 07:14 | Emergency (ER) | payer BC ==
[~2018-11-11] VITALS: Ht 180.3 cm; Wt 90.3 kg
[~2018-11-11 07:14] MED LIST changes: +VELTASSA PO
--- OUTSIDE RECORDS SUMMARY | 2018-11-11 07:18 | XMS REPORT | Clinical Summary ---
Author Author [facility] Address Unknown Phone Unavailable Care Team Providers Care Distillery Manager Name Role Phone Donald Potts MD PCP [...] Implanted Type Area [facility] 11/22/2025 [id number] / / [id number] Screw Bone Canc Dome 6.5x25mm Ltxf Hip Joint Right: Knee DEPUY [place] - [id number] Implants ORTHO Implanted: Qty: 1 on 03/27/2016 by Silke Chowdary MD at [facility] 01/22/2026 [id number] / / [id number] Screw Bone Canc Dome 6.5x25mm Ltxf Hip Joint Right: Knee DEPUY [place] - [id number] Implants ORTHO Implanted: Qty: 1 on 03/27/2016 by Silke Chowdary MD at [facility] 10/23/2026 [id number] / / [id number] [place] Stem [id number] Fluted - IPM Right: Knee DEPUY [id number] IMPLANT ORTHOPAEDI Implanted: Qty: 1 on 04/16/2017 by [employer] Silke Chowdary MD at [facility] 12/23/2026 [id number] / / [id number] [place] Fem Slv Ful Por 40mm - IPM Right: Knee DEPUY [id number] IMPLANT ORTHOPAEDI Implanted: Qty: 1 on 04/16/2017 by [employer] Silke Chowdary MD at [facility] 11/22/2025 [id number] / / [id number] Srom [facility] Dist Aug Xs/S/ 10mm - IPM Right: Knee DEPUY [id number] IMPLANT ORTHOPAEDI Implanted: Qty: 1 on 04/16/2017 by [employer] Silke Chowdary MD at [facility] 11/22/2024 62 [id number] / / [id number] Srom [facility] Dist Aug Xs/S/ 10mm - IPM Right: Knee DEPUY [id number] IMPLANT ORTHOPAEDI Implanted: Qty: 1 on 04/16/2017 by [employer] Silke Chowdary MD at [facility] 10/23/2021 [id number] / / [id number] Rt 71x66 - IPM Right: Knee DEPUY [id number] IMPLANT ORTHOPAEDI Implanted: Qty: 1 on 04/16/2017 by [employer] Silke Chowdary MD at [facility] 10/24/2019 [id number] / / [id number] Lps Univ Tib Hin Ins Med 31mm - IPM Right: Knee DEPUY [id number] IMPLANT ORTHOPAEDI Implanted: Qty: 1 on 04/16/2017 by [employer] Silke Chowdary MD at [facility] 01/22/2026 [id number] / / [id number] Augment Fml P.F.C Sigma Distl Rt Sz Knee Joint Right: Knee DEPUY 5 4mm - [id number] Implants ORTHO Implanted: Qty: 1 on 03/27/2016 by Silke Chowdary MD at [facility] 01/22/2026 [id number] / / [id number] Stem Tib Cementd 38a90qb P.F.C Knee Joint Right: Knee DEPUY Sigma - [id number] Implants ORTHO Implanted: Qty: 1 on 03/27/2016 by Silke Chowdary MD at [facility] 10/22/2020 [id number] / / [id number] Augment Fml P.F.C Sigma Distl Rt Sz Knee Joint Right: Knee DEPUY 5 8mm - [id number] Implants ORTHO Implanted: Qty: 1 on 03/27/2016 by Silke Chowdary MD at [facility] 09/22/2025 [id number] / / [id number] Stem Tib Cementd [id number] Knee Joint Right: Knee DEPUY P.F.C.Sigma - [id number] Implants ORTHO Implanted: Qty: 1 on 03/27/2016 by Silke Chowdary MD at [facility] 12/23/2020 [id number] / / [id number] [place] Prosths Oval / Dome 3-Post Knee Joint Right: Knee DEPUY 38mm Std Uhmwpe - [id number] Implants ORTHO Implanted: Qty: 1 on 03/27/2016 by Silke Chowdary MD at [facility] 05/23/2020 [id number] / / [id number] Insert Tib Stblzd Rp Sz 5 25mm Knee Joint Right: Knee DEPUY P.F.C Sigma - [id number] Implants ORTHO Implanted: Qty: 1 on 03/27/2016 by Silke Chowdary MD at [facility] 02/22/2026 [id number] / / [id number] Tray Rev Mbt 5x53.1x80.6x61.8mm - Knee Joint Right: Knee DEPUY [id number] Implants ORTHO Implanted: Qty: 1 on 03/27/2016 by Silke Chowdary MD at [facility] 09/22/2025 [id number] / / [id number] Component Fml Rt N-Por Tc3 Sz 5 Knee Joint Right: Knee DEPUY [id number] P.F.C Sigma - [id number] Implants ORTHO Implanted: Qty: 1 on 03/27/2016 by Silke Chowdary MD at [facility] 01/22/2026 [id number] / / [id number] Adapter Fml P.F.C Sigma 5deg - Knee Joint Right: Knee DEPUY [id number] Implants ORTHO-KNEE Implanted: Qty: 1 on 03/27/2016 by Silke Gutierres MD at [facility] 11/22/2025 [id number] / / [id number] Adapter Fml P.F.C Sigma Ofst [place] Knee Joint Right: Knee DEPUY +2/-2mm - [id number] Implants ORTHO-KNEE Implanted: Qty: 1 on 03/27/2016 by Silke Gutierres MD at [facility] 01/22/2017 [id number] / / [id number] Cement Bone Hiviscocty 40gr Surgical Right: Knee DEPUY Smartset - [id number] Bone ORTHO Implanted: Qty: 2 on 03/27/2016 by Silke Monge MD at [facility] 12/23/2016 [id number] / / [id number] Cement Bone Hiviscocty 40gr Surgical Right: Knee DEPUY Smartset - [id number] Bone ORTHO Implanted: Qty: 1 on 03/27/2016 by Silke Monge MD at [facility] 10/23/2018 [id number] / / [id number] Cement Bone Hiviscocty 40gr Surgical Right: Knee DEPUY Smartset - [id number] Bone ORTHO Implanted: 04/16/2017 at [facility] (Quantity not on file) 12/24/2020 [id number] / / [id number] Cement Bone Prep Univl Insrtr Sculp Surgical Right: Knee SANDOR Fml Canal [place] Suct Sm - [id number] Implants; INSTRUMENT Implanted: Qty: 1 on 03/27/2016 by [employer] S Silke Chowdary MD at [facility] Extenders; Surgical Wires [id number] / / Immobilizer Knee Tripnl Dlx W/ Patl Surgical N/A: N/A DEROYAL Strp Univl Canvas 24in - [id number] Implants; INDUST[place]ES Implanted: 04/16/2017 at [facility]; HOSPITAL (Quantity not on file) Extenders; Surgical Wires Results Not on fileafter 11/10/2017 Insurance Type Payer Benefit Subscriber ID Effective Phone Address Plan / Dates Group Workers Comp WORKERS COMP PARADIGM xxxxxxxxxxxxxxx 2015- HEALTH xxxxx Present ARNAV Guarantor Name Account Relation to Date of Phone Billing Address Type Patient [id number] Workers Employer 02/23/1900 [id number] [place] [employer] Comp (Home) [address] [address] Sukh Lozano Personal/F Self 1980 [id number] [employer] amily (Home) [address] [address] Sukh Lozano Third Self 1980 [id number] [employer] Libert[employer] (Home) [place] [address] Advance Directives For more information, please contact: [phone] Patient Compliance And Control Analyst Explanation Type Date Recorded Advance Directives, Living Will and Medical Power of Grape Picker Advance Directives, 04/05/2016 3:13 AM Living Will and Medical Power of Grape Picker
--- OUTSIDE RECORDS SUMMARY | 2018-11-11 07:19 | XMS REPORT | Continuity of Care Document ---
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 Active 06/17/2017 [facility] Acute renal failure Active 08/09/2015 Problem 05/07/2018 [facility] Dehydration Active 08/09/2015 Problem 05/07/2018 [facility] Diarrhea Active 08/09/2015 Problem 05/07/2018 [facility] GI bleed Active 08/09/2015 Problem 05/07/2018 [facility] Hyperglycemia Active 08/09/2015 Problem 05/07/2018 [facility] Renal insufficiency Active 04/15/2015 Problem 09/01/2017 [facility] Sepsis Active 04/15/2015 Problem 05/07/2018 [facility] Renal insufficiency Active 04/15/2015 Problem 05/07/2018 [facility] Bacteremia Active 03/30/2015 Problem 05/07/2018 [facility] Prostatitis Active 03/30/2015 Problem 05/07/2018 [facility] Urinary tract infection Active 03/30/2015 Problem 05/07/2018 [facility] Pyelonephritis Active 02/10/2015 Problem 05/07/2018 [facility] Acute renal insufficiency Active Problem 05/07/2018 [facility] Bladder wall thickening Active Problem 05/07/2018 [facility] Fever Active Problem 05/07/2018 [facility] Hydroureteronephrosis Active Problem 05/07/2018 [facility] Hypomagnesemia Active Problem 05/07/2018 [facility] Indwelling catheter present on admission Active Problem 05/07/2018 [facility] Obstructive uropathy Active Problem 05/07/2018 [facility] Displacement of ureteral stent Active Problem 09/01/2017 [facility] Displacement of ureteral stent Active Problem 05/07/2018 [facility] Vomiting Active Problem 05/07/2018 [facility] Medications Medication Details Route Status Patient Instructions Ordering Provider Order Date Source Amlodipine Besylate 10 Mg Tablet, 10 Mg Oral Daily Active 05/05/2018 [facility] Metoprolol Tartrate 25 Mg Tablet, 25 Mg Oral Twice A Day Active 05/05/2018 [facility] Ciprofloxacin Hcl (Cipro) 500 Mg Tablet, 500 Mg Oral Daily Active 08/29/2017 [facility] Doxycycline Hyclate 100 Mg Capsule, 100 Mg Oral Twice A Day Active 08/29/2017 [facility] Fluconazole 100 Mg Tablet, 200 Mg Oral Daily Active 08/29/2017 [facility] Insulin Detemir (Levemir) 100 Unit/1 Ml Vial, 20 Units Sub-Q Bedtime Active 08/29/2017 [facility] Oxybutynin Chloride (Oxybutynin Chloride Er) 5 Mg Tab.er.24, 15 Mg Oral Daily Active 08/29/2017 [facility] Doxycycline Hyclate 100 Mg Capsule, 100 Mg Oral Twice A Day Active 08/29/2017 [facility] Fluconazole 100 Mg Tablet, 200 Mg Oral Daily Active 08/29/2017 [facility] Insulin Detemir (Levemir) 100 Unit/1 Ml Vial, 20 Units Sub-Q Bedtime Active 08/29/2017 [facility] Oxybutynin Chloride (Oxybutynin Chloride Er) 5 Mg Tab.er.24, 15 Mg Oral Daily Active 08/29/2017 [facility] Cephalexin 500 Mg Capsule, 500 Mg Oral Four Times Daily Active 06/04/2016 [facility] Hydrocodone Bit/Acetaminophen ([place] 5-325 Tablet) 1 Each Tablet, 1 Tab Oral Every 6 Hours as needed for Pain Active 06/04/2016 [facility] Promethazine Hcl 25 Mg Tablet, 25 Mg Oral Every 4 Hours Active 06/04/2016 [facility] Tramadol Hcl (Ultram) 50 Mg Tablet, 1-2 Tab Oral Every 6 Hours as needed for Pain Active 06/04/2016 [facility] Cephalexin 500 Mg Capsule, 500 Mg Oral Four Times Daily Active 06/04/2016 [facility] Hydrocodone Bit/Acetaminophen ([place] 5-325 Tablet) 1 Each Tablet, 1 Tab Oral Every 6 Hours as needed for Pain Active 06/04/2016 [facility] Promethazine Hcl 25 Mg Tablet, 25 Mg Oral Every 4 Hours Active 06/04/2016 [facility] Fluticasone Propionate 16 Gm [place].susp, 1 Twice A Day Active 08/08/2015 [facility] Meropenem (Merrem) 500 Mg Inj, 500 Mg Intraven Every 8 Hours Active 08/08/2015 [facility] Metoclopramide Hcl (Reglan) 10 Mg Tablet, 10 Mg Before Meals And At Bedtime Active 08/08/2015 [facility] Pantoprazole Sodium (Protonix) 40 Mg Tablet.dr, 40 Mg Oral Every Morning Active 08/08/2015 [facility] Fluticasone Propionate 16 Gm [place].susp, 1 Twice A Day Active 08/08/2015 [facility] Metoclopramide Hcl (Reglan) 10 Mg Tablet, 10 Mg Before Meals And At Bedtime Active 08/08/2015 [facility] Amoxicillin/Potassium Clav (Augmentin 500-125 Tablet) 1 Each Tablet, 500 Mg Oral Twice A Day Active 04/11/2015 [facility] Fluconazole (Diflucan) 100 Mg Tablet, Mg Oral Daily Active 04/11/2015 [facility] Amoxicillin/Potassium Clav (Augmentin 500-125 Tablet) 1 Each Tablet, 500 Mg Oral Twice A Day Active 04/11/2015 [facility] Fluconazole (Diflucan) 100 Mg Tablet, Mg Oral Daily Active 04/11/2015 [facility] Tamsulosin Hcl (Flomax*) 0.4 Mg Cap, 0.4 Mg Oral Bedtime Active 03/30/2015 [facility] Tamsulosin Hcl (Flomax*) 0.4 Mg Cap, 0.4 Mg Oral Bedtime Active 03/30/2015 [facility] Acetaminophen With Codeine (Tylenol With Codeine #3 Tablet) 1 Each Tablet, 300 Mg Oral Every 6 Hours as needed for Pain Active 03/08/2015 [facility] Senna Fruit/Conc/Doc Sod/Bisa (Senna-S Tablet) 1 Ea Tab, 1 Each Oral Bedtime Active 03/08/2015 [facility] Acetaminophen With Codeine (Tylenol With Codeine #3 Tablet) 1 Each Tablet, 300 Mg Oral Every 6 Hours as needed for Pain Active 03/08/2015 [facility] Senna Fruit/Conc/Doc Sod/Bisa (Senna-S Tablet) 1 Ea Tab, 1 Each Oral Bedtime Active 03/08/2015 [facility] Hydrocodone Bit/Acetaminophen ([place] 5-325 Tablet) 1 Each Tablet, Tab Oral Daily Active 02/22/2015 [facility] Insulin Npl/Insulin Lispro (Humalog Mix 50-50 Kwikpen) 100 Unit/1 Ml Insuln.pen, Sub-Q 15 Units Every A.m. Active 02/22/2015 [facility] Lisinopril 10 Mg Tablet, Tab Oral Daily Active 02/22/2015 [facility] Amoxicillin/Potassium Clav (Augmentin 875-125 Tablet) 1 Each Tablet, Tab Oral Twice A Day Active 02/11/2015 [facility] Cephalexin Monohydrate (Keflex) 500 Mg Capsule, 500 Mg Oral Three Times A Day Active 02/11/2015 [facility] Docusate Sodium (Colace) 100 Mg Cap, Cap Oral Daily Active 02/11/2015 [facility] Insulin Glargine,Hum.rec.anlog (Lantus) 100 Unit/1 Ml Cartridge, Sub-Q 45 Units At Bedtime Active 02/11/2015 [facility] Metformin Hcl 500 Mg Tablet, 500 Mg Oral Twice Daily Active 02/11/2015 [facility] Amlodipine Besylate 10 Mg Tablet Daily Active [facility] Gabapentin 300 Mg Capsule Three Times A Day Active [facility] Insulin Aspart (Novolog) 100 Unit/1 Ml Cartridge Before Meals Active [facility] Metoprolol Tartrate 25 Mg Tablet Twice A Day Active [facility] Gabapentin 300 Mg Capsule Twice A Day Active [facility] Insulin Aspart (Novolog) 100 Unit/1 Ml Cartridge Before Meals Active [facility] Nifedipine (Nifedipine Er) 30 Mg Tab.er.24 Daily Active [facility] Vyzulta Daily Active [facility] Allergies, Adverse Reactions, Alerts Substance Category Reaction Severity Reaction type Status Date Reported Comments Source PO CONTRAST Mild Allergy to Substance Active 07/06/2007 [facility] Iodinated Contrast- Oral and IV Dye Unknown Allergy to Substance Active 05/03/2018 [facility] No Known Medication Allergies Assertion Drug allergy [facility] Immunizations No Data Provided for This Section Results Order Name Results Value Reference Range Date Interpretation Comments Source Capillary blood glucose measurement by glucometer (mass/volume) 72 70 - 120 05/07/2018 [facility] Serum or plasma sodium measurement (moles/volume) 136 136 - 145 05/06/2018 [facility] Serum or plasma potassium measurement (moles/volume) 5.2 3.5 - 5.1 05/06/2018 [facility] Serum or plasma chloride measurement (moles/volume) 111 98 - 107 05/06/2018 [facility] Serum or plasma carbon dioxide, total measurement (moles/volume) 21 22 - 29 05/06/2018 [facility] Serum or plasma anion gap 9.2 8 - 16 05/06/2018 [facility] Serum or plasma urea nitrogen measurement (mass/volume) 26 7 - 26 05/06/2018 [facility] Serum or plasma creatinine measurement (mass/volume) 2.22 0.72 - 1.25 05/06/2018 [facility] Serum or plasma urea nitrogen/creatinine mass ratio 12 6 - 25 05/06/2018 [facility] Estimated glomerular filtration rate (GFR) determination 33 60 05/06/2018 [facility] Glucose measurement 144 74 - 118 05/06/2018 [facility] Serum or plasma calcium measurement (mass/volume) 6.5 8.4 - 10.2 05/06/2018 [facility] Blood leukocytes automated count (number/volume) 3.55 4.8 - 10.8 05/06/2018 [facility] Blood erythrocytes automated count (number/volume) 3.25 4.3 - 5.7 05/06/2018 [facility] Blood hemoglobin measurement (moles/volume) 8.6 14.0 - 18.0 05/06/2018 [facility] Automated blood hematocrit (volume fraction) 27.2 38.2 - 49.6 05/06/2018 [facility] Automated erythrocyte mean corpuscular volume 83.7 81 - 99 05/06/2018 [facility] Automated erythrocyte mean corpuscular hemoglobin (mass per erythrocyte) 26.5 28 - 32 05/06/2018 [facility] Automated erythrocyte mean corpuscular hemoglobin concentration measurement (mass/volume) 31.6 31 - 35 05/06/2018 [facility] RDW BldCo-Rto 14.6 11.7 - 14.4 05/06/2018 [facility] Automated blood platelet count (count/volume) 113 140 - 360 05/06/2018 [facility] Automated blood segmented neutrophil count as percentage of total leukocytes 59.6 38.7 - 80.0 05/06/2018 [facility] Automated blood lymphocyte count as percentage ot total leukocytes 24.8 18.0 - 39.1 05/06/2018 [facility] Automated blood monocyte count as percentage of total leukocytes 8.5 4.4 - 11.3 05/06/2018 [facility] Automated blood eosinophil count as percentage of total leukocytes 5.1 0.0 - 6.0 05/06/2018 [facility] Automated blood basophil count as percentage of total leukocytes 0.6 0.0 - 1.0 05/06/2018 [facility] IM GRANULOCYTES % 1.4 0.0 - 1.0 05/06/2018 [facility] Automated blood neutrophil count 2.1 2.1 - 6.9 05/06/2018 [facility] Blood lymphocytes count (number/volume) 0.9 1.0 - 3.2 05/06/2018 [facility] Blood monocytes automated count (number/volume) 0.3 0.2 - 0.8 05/06/2018 [facility] Automated blood eosinophil count 0.2 0.0 - 0.4 05/06/2018 [facility] Automated blood basophil count (count/volume) 0.0 0.0 - 0.1 05/06/2018 [facility] Absolute Immature Granulocyte (auto 0.05 0 - 0.1 05/06/2018 [facility] Serum or plasma total bilirubin measurement (mass/volume) 0.2 0.2 - 1.2 05/05/2018 [facility] Aspartate Amino Transf (AST/SGOT) 31 5 - 34 05/05/2018 [facility] Serum or plasma alanine aminotransferase measurement (enzymatic activity/volume) 44 0 - 55 05/05/2018 [facility] Serum or plasma protein measurement (mass/volume) 6.6 6.5 - 8.1 05/05/2018 [facility] Serum or plasma albumin measurement (mass/volume) 2.4 3.5 - 5.0 05/05/2018 [facility] Plasma globulin measurement (mass/volume) 4.2 2.3 - 3.5 05/05/2018 [facility] Serum or plasma albumin/globulin mass ratio 0.6 0.8 - 2.0 05/05/2018 [facility] Serum or plasma alkaline phosphatase measurement (enzymatic activity/volume) 272 40 - 150 05/05/2018 [facility] Urine color determination YELLOW YELLOW 05/03/2018 [facility] Urine clarity CLOUDY CLEAR 05/03/2018 [facility] Specific gravity of Urine by Test strip 1.025 1.010 - 1.025 05/03/2018 [facility] Urine pH measurement by automated test strip 6 5 - 7 05/03/2018 [facility] Urine leukocyte esterase detection by dipstick 2+ NEGATIVE 05/03/2018 [facility] Urine nitrite detection POSITIVE NEGATIVE 05/03/2018 [facility] Urine protein measurement by test strip (mass/volume) 3+ NEGATIVE 05/03/2018 [facility] Urine glucose detection 1+ NEGATIVE 05/03/2018 [facility] Urine ketones detection by automated test strip NEGATIVE NEGATIVE 05/03/2018 [facility] Urine urobilinogen measurement by test strip (mass/volume) 0.2 0.2 - 1 05/03/2018 [facility] Urine total bilirubin measurement (mass/volume) NEGATIVE NEGATIVE 05/03/2018 [facility] Urine erythrocytes detection 4+ NEGATIVE 05/03/2018 [facility] Automated urine sediment leukocyte count by microscopy (number/high power field) >50 0 - 5 05/03/2018 [facility] Erythrocytes detection in urine sediment by light microscopy 21-50 0 - 5 05/03/2018 [facility] Bacteria detection in urine sediment by light microscopy MANY NONE 05/03/2018 [facility] Epithelial cells detection in urine sediment by light microscopy RARE NONE 05/03/2018 [facility] Influenza virus A and B antigen identification by immunofluorescence NEGATIVE NEGATIVE 05/03/2018 [facility] Streptococcus pyogenes antigen detection in throat NEGATIVE NEGATIVE 05/03/2018 [facility] Serum or plasma amylase measurement (enzymatic activity/volume) 62 25 - 125 05/03/2018 [facility] Serum or plasma lipase measurement (enzymatic activity/volume) 14 8 - 78 05/03/2018 [facility] Capillary blood glucose measurement by glucometer (mass/volume) Capillary blood glucose measurement by glucometer (mass/volume) 190 70 - 120 09/01/2017 [facility] Estimated glomerular filtration rate (GFR) determination Estimated glomerular filtration rate (GFR) determination 43 60 08/31/2017 [facility] Glucose measurement Glucose measurement 165 74 - 118 08/31/2017 [facility] Serum or plasma anion gap Serum or plasma anion gap 11.7 8 - 16 08/31/2017 [facility] Serum or plasma calcium measurement (mass/volume) Serum or plasma calcium measurement (mass/volume) 8.2 8.4 - 10.2 08/31/2017 [facility] Serum or plasma carbon dioxide, total measurement (moles/volume) Serum or plasma carbon dioxide, total measurement (moles/volume) 20 22 - 29 08/31/2017 [facility] Serum or plasma chloride measurement (moles/volume) Serum or plasma chloride measurement (moles/volume) 109 98 - 107 08/31/2017 [facility] Serum or plasma creatinine measurement (mass/volume) Serum or plasma creatinine measurement (mass/volume) 1.79 0.72 - 1.25 08/31/2017 [facility] Serum or plasma potassium measurement (moles/volume) Serum or plasma potassium measurement (moles/volume) 4.7 3.5 - 5.1 08/31/2017 [facility] Serum or plasma sodium measurement (moles/volume) Serum or plasma sodium measurement (moles/volume) 136 136 - 145 08/31/2017 [facility] Serum or plasma urea nitrogen measurement (mass/volume) Serum or plasma urea nitrogen measurement (mass/volume) 20 7 - 26 08/31/2017 [facility] Serum or plasma urea nitrogen/creatinine mass ratio Serum or plasma urea nitrogen/creatinine mass ratio 11 6 - 25 08/31/2017 [facility] Automated blood basophil count (count/volume) Automated blood basophil count (count/volume) 0.0 0.0 - 0.1 08/30/2017 [facility] Automated blood basophil count as percentage of total leukocytes Automated blood basophil count as percentage of total leukocytes 0.2 0.0 - 1.0 08/30/2017 [facility] Automated blood eosinophil count Automated blood eosinophil count 0.1 0.0 - 0.4 08/30/2017 [facility] Automated blood eosinophil count as percentage of total leukocytes Automated blood eosinophil count as percentage of total leukocytes 2.1 0.0 - 6.0 08/30/2017 [facility] Automated blood hematocrit (volume fraction) Automated blood hematocrit (volume fraction) 29.6 38.2 - 49.6 08/30/2017 [facility] Automated blood lymphocyte count as percentage ot total leukocytes Automated blood lymphocyte count as percentage ot total leukocytes 13.9 18.0 - 39.1 08/30/2017 [facility] Automated blood monocyte count as percentage of total leukocytes Automated blood monocyte count as percentage of total leukocytes 9.8 4.4 - 11.3 08/30/2017 [facility] Automated blood neutrophil count Automated blood neutrophil count 3.9 2.1 - 6.9 08/30/2017 [facility] Automated blood platelet count (count/volume) Automated blood platelet count (count/volume) 115 140 - 360 08/30/2017 [facility] Automated blood segmented neutrophil count as percentage of total leukocytes Automated blood segmented neutrophil count as percentage of total leukocytes 73.6 38.7 - 80.0 08/30/2017 [facility] Automated erythrocyte mean corpuscular hemoglobin (mass per erythrocyte) Automated erythrocyte mean corpuscular hemoglobin (mass per erythrocyte) 26.0 28 - 32 08/30/2017 [facility] Automated erythrocyte mean corpuscular hemoglobin concentration measurement (mass/volume) Automated erythrocyte mean corpuscular hemoglobin concentration measurement (mass/volume) 31.8 31 - 35 08/30/2017 [facility] Automated erythrocyte mean corpuscular volume Automated erythrocyte mean corpuscular volume 82.0 81 - 99 08/30/2017 [facility] Blood erythrocytes automated count (number/volume) Blood erythrocytes automated count (number/volume) 3.61 4.3 - 5.7 08/30/2017 [facility] Blood hemoglobin measurement (moles/volume) Blood hemoglobin measurement (moles/volume) 9.4 14.0 - 18.0 08/30/2017 [facility] Blood leukocytes automated count (number/volume) Blood leukocytes automated count (number/volume) 5.33 4.8 - 10.8 08/30/2017 [facility] Blood lymphocytes count (number/volume) Blood lymphocytes count (number/volume) 0.7 1.0 - 3.2 08/30/2017 [facility] Blood monocytes automated count (number/volume) Blood monocytes automated count (number/volume) 0.5 0.2 - 0.8 08/30/2017 [facility] Plasma globulin measurement (mass/volume) Plasma globulin measurement (mass/volume) 4.6 2.3 - 3.5 08/30/2017 [facility] Serum or plasma alanine aminotransferase measurement (enzymatic activity/volume) Serum or plasma alanine aminotransferase measurement (enzymatic activity/volume) 40 0 - 55 08/30/2017 [facility] Serum or plasma albumin measurement (mass/volume) Serum or plasma albumin measurement (mass/volume) 2.8 3.5 - 5.0 08/30/2017 [facility] Serum or plasma albumin/globulin mass ratio Serum or plasma albumin/globulin mass ratio 0.6 0.8 - 2.0 08/30/2017 [facility] Serum or plasma alkaline phosphatase measurement (enzymatic activity/volume) Serum or plasma alkaline phosphatase measurement (enzymatic activity/volume) 234 40 - 150 08/30/2017 [facility] Serum or plasma protein measurement (mass/volume) Serum or plasma protein measurement (mass/volume) 7.4 6.5 - 8.1 08/30/2017 [facility] Serum or plasma total bilirubin measurement (mass/volume) Serum or plasma total bilirubin measurement (mass/volume) 0.5 0.2 - 1.2 08/30/2017 [facility] Red Cell Distribution Width 16.5 11.7 - 14.4 08/30/2017 [facility] IM GRANULOCYTES % 0.4 0.0 - 1.0 08/30/2017 [facility] Absolute Immature Granulocyte (auto 0.02 0 - 0.1 08/30/2017 [facility] Aspartate Amino Transf (AST/SGOT) 14 5 - 34 08/30/2017 [facility] Lactic Acid Level 6.9 4.5 - 19.8 08/29/2017 [facility] Blood culture NO GROWTH AFTER 5 DAYS, FINAL REPORT 08/29/2017 [facility] Automated urine sediment leukocyte count by microscopy (number/high power field) Automated urine sediment leukocyte count by microscopy (number/high power field) >50 0 - 5 08/29/2017 [facility] Bacteria detection in urine sediment by light microscopy Bacteria detection in urine sediment by light microscopy FEW NONE 08/29/2017 [facility] Blood culture Blood culture NO GROWTH AFTER 72 HOURS 08/29/2017 [facility] Epithelial cells detection in urine sediment by light microscopy Epithelial cells detection in urine sediment by light microscopy RARE NONE 08/29/2017 [facility] Erythrocytes detection in urine sediment by light microscopy Erythrocytes detection in urine sediment by light microscopy >50 0 - 5 08/29/2017 [facility] Specific gravity of Urine by Test strip Specific gravity of Urine by Test strip 1.020 1.010 - 1.025 08/29/2017 [facility] Urine clarity Urine clarity CLOUDY CLEAR 08/29/2017 [facility] Urine color determination Urine color determination RED YELLOW 08/29/2017 [facility] Urine erythrocytes detection Urine erythrocytes detection 3+ NEGATIVE 08/29/2017 [facility] Urine glucose detection Urine glucose detection NEGATIVE NEGATIVE 08/29/2017 [facility] Urine ketones detection by automated test strip Urine ketones detection by automated test strip NEGATIVE NEGATIVE 08/29/2017 [facility] Urine leukocyte esterase detection by dipstick Urine leukocyte esterase detection by dipstick 2+ NEGATIVE 08/29/2017 [facility] Urine nitrite detection Urine nitrite detection NEGATIVE NEGATIVE 08/29/2017 [facility] Urine pH measurement by automated test strip Urine pH measurement by automated test strip 6 5 - 7 08/29/2017 [facility] Urine protein measurement by test strip (mass/volume) Urine protein measurement by test strip (mass/volume) 3+ NEGATIVE 08/29/2017 [facility] Urine total bilirubin measurement (mass/volume) Urine total bilirubin measurement (mass/volume) 1+ NEGATIVE 08/29/2017 [facility] Urine urobilinogen measurement by test strip (mass/volume) Urine urobilinogen measurement by test strip (mass/volume) 0.2 0.2 - 1 08/29/2017 [facility] Lactic Acid Level 6.9 4.5 - 19.8 08/29/2017 [facility] Serum or plasma magnesium measurement (mass/volume) Serum or plasma magnesium measurement (mass/volume) 1.3 1.3 - 2.1 01/25/2017 [facility] Bacterial urine culture Urine Culture [facility] Pathology Reports No Data Provided for This [...] evidence of labral or cartilaginous pathology. 07/23/2017 [facility] Inj Arthrogram Shoulder Unilat DX EXAM: [...] the right shoulder for MR arthrogram. 07/23/2017 [facility] Consultation Notes No Data Provided for This Section Discharge Summaries No Data Provided for This Section History and Physicals No Data Provided for This Section Vital Signs Vital Sign Value Date Comments Source BMI Calculated 22.31 12/01/2017 [facility] Weight 64.602 12/01/2017 [facility] Height 170.18 cm 12/01/2017 [facility] Systolic (mm Hg) 108 12/01/2017 [facility] Diastolic (mm Hg) 76 12/01/2017 [facility] Heart Rate 64 12/01/2017 [facility] Encounters Location Location Details Encounter Type Encounter Number Reason For Visit Attending Provider ADM Date DC Date Status Source Discharged Inpatient [id number] ABHIJIT LLOYD MD 01/25/2017 01/30/2017 [facility] Outpatient [id number] Kenzie Partidaon 06/02/2017 06/02/2017 [facility] Outpatient Imaging [facility] Outpt Diag Services [id number] Joaquín Ha 07/23/2017 07/24/2017 [facility] Discharged Inpatient [id number] ABHIJIT LLOYD MD 08/29/2017 09/01/2017 [facility] Phone Message [id number] 11/30/2017 12/02/2017 [facility] [place] [id number] [facility] 12/01/2017 Active [facility] Outpatient [id number] [facility] 12/01/2017 12/02/2017 [facility] [place] Inpatient [id number] ABHIJIT LLOYD MD 05/04/2018 [facility] Procedures Procedure Code Date Perfomer Comments Source CT of abdomen and pelvis without contrast [id number] 05/03/2018 [facility] X-ray of chest, single view [id number] 05/03/2018 [facility] Hernia repair<sup>1</sup> [id number] 1980 & 1988 [facility] [place]ASIK [id number] [facility] Provision of collar<sup>2</sup> [id number] collar bone fracture [facility] Assessment and Plan No Data Provided [...] or discomfort, temperature increase or decrease. 05/07/2018 [facility] Discharge Date 09/01/17 12:03pm Disposition HOME, SELF-CARE Instructions/Education Provided Diabetes and Diet Urinary Tract Infection - Men Prescriptions See Medication Section Referrals ABHIJIT LLOYD MD (Internal Medicine) Entered Date: 09/01/2017 10:06am Address: [address] [place] [id number] Note: Follow up in 1 week. Call office to make appointment. Additional Instructions/Education follow up with in 1 week. Call office to make an appointment. 09/01/2017 [facility] Social History Social History Date Source Social [...] Start Date Stop Date Never Smoker 05/07/2018 [facility] Social History TypeResponse Substance Abuse Use: None. Recreational Drug Route: Oral. Employment/School Status: Employed. Alcohol Current, Type Beer. Frequency: 3-5 times per week. Smoking Status Never smoker; Exposure to Tobacco Smoke None; Cigarette Smoking Last 365 Days No; Reg Smoking Cessation Counseling Yes entered on: 12/01/17 12/01/2017 [facility] No data available for this section 07/24/2017 [facility] No data available for this section 06/02/2017 [facility] Family History No Data Provided for This Section Advance Directives Order Name Results Value Date Source Advance Directives Advance Directives Directive Response Recorded Date/Time Does the patient have an advance directive? No 05/04/18 10:00pm If yes, is advance directive on file with [facility]? Yes 05/04/18 10:00pm If not on file with [facility] will patient provide a copy? Yes 05/04/18 10:00pm Do you have a Directive to Physician? Yes 05/03/18 3:58pm Do you have a Medical Power of Oxyhydrogen Welder? Yes 05/03/18 3:58pm Do you have an [...] rights and responsibilities? Yes 05/03/18 3:58pm 05/07/2018 [facility] Advance Directives Advance Directives Directive Response Recorded Date/Time Does the patient have an advance directive? Yes 08/29/17 9:42am If yes, is advance directive on file with [facility]? Yes 08/29/17 9:42am If not on file with [facility] will patient provide a copy? No 08/29/17 9:42am Do you have a Directive to Physician? No 08/29/17 12:49am Do you have a Medical Power of Oxyhydrogen Welder? No 08/29/17 12:49am Do you have an [...] rights and responsibilities? Yes 08/29/17 12:49am 09/01/2017 [facility] Functional Status No Data Provided for This Section
[2018-11-11] MEDS ORDERED: FAMOTIDINE 20 MG/2 ML VIAL IV STA (07:22)
[2018-11-11] MEDS ORDERED: METOCLOPRAMIDE HCL 10 MG/2ML VIAL IV ONE (07:30)
[2018-11-11] MEDS ORDERED: SODIUM CHLORIDE 0.9% 1000ML 1,000 ML IV ONE ×2 (07:30→09:00)
[2018-11-11 07:48] LABS: BASOPHILS % 0.3 % (0.0-1.0); EOSINOPHILS # (AUTO) 0.1 (0.0-0.4); HEMATOCRIT 38.6 % (38.2-49.6); HEMOGLOBIN 12.7 g/dL (14.0-18.0); LYMPHOCYTES # (AUTO) 1.1 (1.0-3.2); LYMPHOCYTES % 18.2 % (18.0-39.1); MEAN CORPUSCULAR HEMOGLOBIN 27.9 pg (28-32); MEAN CORPUSCULAR HGB CONC 32.9 g/dL (31-35); MEAN CORPUSCULAR VOLUME 84.6 fL (81-99); MONOCYTES # (AUTO) 0.3 (0.2-0.8); MONOCYTES % 4.9 % (4.4-11.3); NEUTROPHILS # (AUTO) 4.5 (2.1-6.9); NEUTROPHILS % 74.1 % (38.7-80.0); PLATELET COUNT 140 x10e3/uL (140-360); RED BLOOD COUNT 4.56 x10e6/uL (4.3-5.7); RED CELL DISTRIBUTION WIDTH 15.5 % (11.7-14.4)
[2018-11-11] MEDS ORDERED: DICYCLOMINE HCL 20 MG/2 ML VIAL IM ONE (08:00)
[2018-11-11 08:03] LABS: ALBUMIN 3.2 g/dL (3.5-5.0); ALBUMIN/GLOBULIN RATIO 0.7 (0.8-2.0); ANION GAP 14.8 mmol/L (8-16); CREATININE, SERUM 3.89 mg/dL (0.72-1.25); POTASSIUM 4.8 mmol/L (3.5-5.1)
[2018-11-11 08:17] LABS: BILIRUBIN,URINE NEGATIVE (NEGATIVE); CLARITY,URINE SL CLOUDY (CLEAR); COLOR,URINE YELLOW (YELLOW); KETONES,URINE NEGATIVE (NEGATIVE); LEUKOCYTE ESTERASE ,URINE TRACE (NEGATIVE); NITRITE,URINE NEGATIVE (NEGATIVE); URINE UROBILINOGEN 0.2 mg/dL (0.2 - 1)
[2018-11-11 08:20] LABS: PROTEIN,URINE DIPSTICK 3+ (NEGATIVE)
[2018-11-11 08:26] LABS: BACTERIA,URINE RARE /HPF; EPITHELIAL CELLS,URINE FEW /LPF; RBC,URINE 21-50 /HPF (0-5); WBC,URINE (MAN) 21-50 /HPF (0-5)
[2018-11-11] MEDS ORDERED: LACTOBACILLUS ACIDOPHILUS CAPSULE PO ONE (08:45)
[2018-11-11] MEDS ORDERED: LOPERAMIDE HCL 2 MG CAP PO ONE (08:45)
[2018-11-11] MEDS ORDERED: CEFTRIAXONE SOD 1 GM/NS 50 ML 50 ML IV ONE (08:45)
[2018-11-11] MEDS ORDERED: ONDANSETRON HCL INJ 2MG/ML 2ML 2 MG/ML VIAL IV STA (10:14)
[2018-11-11 11:21] LABS: EOSINOPHILS % (MANUAL) 2 % (0-7); LYMPHOCYTES % (MANUAL) 19 % (19-48); MONOCYTES % (MANUAL) 5 % (3.4-9.0); NEUTROPHILS % (MANUAL) 74 % (40-74)
[2018-11-11 11:22] LABS: PLATELET ESTIMATE MODERATELY DECREASED; PLATELET MORPHOLOGY COMMENT FEW LARGE; RBC MORPHOLOGY COMMENT NORMAL
--- NOTE | 2018-11-11 11:38 | Diagnostic Imaging Report ---
Abdomen, 2 views. History: Fever, nausea and vomiting. Findings: Air is scattered throughout nondilated small and large bowel. There are no air-fluid levels. There is no evidence of free air. Cholecystectomy clips are present in the right upper quadrant. There are no masses or abnormal calcifications. The osseous structures are intact. IMPRESSION: Nonobstructive bowel gas pattern. Signed by: Jonathan Allan on 11/11/2018 11:35 AM
[2018-11-11] MEDS ORDERED: HYDRALAZINE HCL 20 MG/ML VIAL IV ONE (12:00)
[2018-11-11 12:03] VITALS: BP 157/98
== END 2018-11-11 12:00 | disposition home or self-care (01) ==
LOC: ER 07:14
DX: R11.2 Nausea with vomiting, unspecified (principal); E86.0 Dehydration; K52.9 Noninfective gastroenteritis and colitis, unspecified; E10.9 Type 1 diabetes mellitus without complications; I10 Essential (primary) hypertension
CPT/HCPCS: 36415; 74019; 80053; 81001; 85025; 99284; J0696; J2405; J2765; J7030; J0500

== ENCOUNTER → 2019-01-14 | Outpatient (CLI) | payer BC ==
[~2019-01-14] MED LIST changes: +FUROSEMIDE INJ 10 MG/ML 4 ML VIAL ONE
--- NOTE | 2019-01-14 18:52 | Diagnostic Imaging Report ---
Renal Scan with Lasix Washout Clinical information: N18: Chronic kidney disease Comparison: Most recent prior renal scan 10/21/2018 Technique: Following intravenous administration of 10 mCi of Tc-99m MAG3, dynamic images of the kidneys in the posterior projection were obtained through 40 minutes. Lasix 40 mg was administered intravenously at 10 minutes post injection of the tracer. Report: Left kidney: Perfusion of the left kidney is prompt. The kidney has an elongated reniform shape with mild thinning of the renal cortex. Extraction of tracer from the blood pool is decreased. Clearance of tracer from the renal parenchyma begins promptly but is not complete by the end of the study. The pelvicalyceal system is mildly dilated. Increased pooling of tracer is seen within the pelvicalyceal system. No net drainage of tracer from the pelvicalyceal system is prior to administration of Lasix. Washout of tracer from the pelvicalyceal system following administration of Lasix is adequate with a T-1/2 of 10 minutes (normal less than 15 minutes). No significant stasis of tracer is seen within the left ureter. Right kidney: Perfusion to the right kidney is prompt. The right kidney has distorted reniform shape with marked thinning of the renal cortex. The kidney is not as elongated as the left kidney and the renal cortex is more thinned than the renal cortex of the left kidney. Extraction of tracer by the renal parenchyma is decreased. Clearance of tracer from the renal parenchyma begins promptly but is not complete by the end of the study. The pelvicalyceal system is mildly dilated. Increased pooling of tracer is seen within the pelvicalyceal system. No net drainage of tracer from the pelvicalyceal system is seen prior to administration of Lasix. No washout of tracer from the pelvicalyceal system is seen following administration of Lasix. The T-1/2 for Lasix washout of the pelvicalyceal system is undefined as there is no downward slope of the time-activity curve. Differential renal function: The left kidney contributes 74% of total renal function and the right kidney contributes 26% (normal 43-57%), previously left 71% and right 29%. Impression: 1. Loss of renal parenchyma in the left kidney is suspected evidenced by the moderate thinning of the renal cortex. Significant medical renal disease is also present. Moderate hydronephrosis is present, however, physiologically significant obstruction at the UPJ is not suspected although the T-1/2 for Lasix washout is at the upper range of normal. The appearance of the kidney and the differential function are unchanged compared to the prior renal scan with Lasix of 10/21/2018. The drainage and washout pattern are also unchanged. 2. Loss of renal parenchyma is greater in the right kidney compared to the left kidney due to more severe thinning of the renal cortex. This accounts for the decreased differential renal function of 26%. SIgnificant medical renal disease is also present. Moderately severe hydronephrosis is present and physiologically significant obstruction of the UPJ is present. The appearance of the kidney and the differential renal function are unchanged compared to the prior study. The renogram is also unchanged. Signed by: Dr. Yuly Peralta M.D. on 01/14/2019 6:48 PM
== END ==
LOC: NM 14:07
PROVIDERS: ATTEND Urology
DX: N18.9 Chronic kidney disease, unspecified (principal)
CPT/HCPCS: 78708; A9562; J1940

== ENCOUNTER 2019-02-15 07:05 | Inpatient (IN) | payer BC ==
[2019-02-11 17:18] LABS: BASOPHILS % 0.6 % (0.0-1.0); EOSINOPHILS # (AUTO) 0.1 (0.0-0.4); EOSINOPHILS % 2.2 % (0.0-6.0); HEMOGLOBIN 7.3 g/dL (14.0-18.0); LYMPHOCYTES # (AUTO) 1.3 (1.0-3.2); LYMPHOCYTES % 23.6 % (18.0-39.1); MEAN CORPUSCULAR HEMOGLOBIN 26.4 pg (28-32); MEAN CORPUSCULAR HGB CONC 31.7 g/dL (31-35); MONOCYTES # (AUTO) 0.3 (0.2-0.8); MONOCYTES % 6.1 % (4.4-11.3); NEUTROPHILS # (AUTO) 3.6 (2.1-6.9); NEUTROPHILS % 66.9 % (38.7-80.0); PLATELET COUNT 146 x10e3/uL (140-360); RED BLOOD COUNT 2.77 x10e6/uL (4.3-5.7); RED CELL DISTRIBUTION WIDTH 15.4 % (11.7-14.4)
[2019-02-11 17:28] LABS: INR 1.04; PROTHROMBIN TIME 14.1 seconds (11.9-14.5)
[2019-02-11 17:29] LABS: PARTIAL THROMBOPLASTIN TIME 34.4 seconds (23.8-35.5)
[2019-02-11 17:32] LABS: CREATININE, SERUM 4.29 mg/dL (0.72-1.25)
[~2019-02-15] VITALS: Ht 180.3 cm; Wt 104.4 kg
[~2019-02-15 07:05] MED LIST changes: -FUROSEMIDE INJ 10 MG/ML 4 ML VIAL ONE; +VITAMIN D22000 UNIT PO
--- NOTE | 2019-02-15 07:45 | NUR ---
SPIRITUAL CARE - Pre-Surgery Assessment: Pt in bed. Pt's at bedside. Pt reported supportive attention from family and friends. Intervention: I provided pastoral presence, hospitality, and sympathetic listening. I acquainted pt with availability of special certificate dictator while hospitalized. Outcome: Pt expressed appreciation for visit. No need for follow up indicated at this time. MIHAELA Florentinolain Spiritual Care Department O: [phone] Pager: [phone] ([phone] number calling from)
[2019-02-15] MEDS ORDERED: ONDANSETRON HCL INJ 2MG/ML 2ML 2 MG/ML VIAL ONE ×2 (07:51→18:19)
[2019-02-15] MEDS ORDERED: MEROPENEM 500MG/ NS 50ML 50 ML IV ONE (08:00)
[2019-02-15] MEDS ORDERED: CALCIUM CHLORIDE 10% 1.36 MEQ/ML 10ML SYR IV ONE (08:30)
[2019-02-15] MEDS ORDERED: B&O 60MG R/S 60 MG SUPP PR ONE (09:18)
[2019-02-15] MEDS ORDERED: IOPAMIDOL 300MG/ML 50ML INFUS..BTL IV ONE (09:18)
[2019-02-15] MEDS ORDERED: DIPHENHYDRAMINE HCL 25 MG CAP PO PRN (10:15)
[2019-02-15] MEDS ORDERED: FENTANYL CITRATE/PF 100MCG/2 ML INJ ONE ×2 (12:50→19:22)
[2019-02-15] MEDS ORDERED: MIDAZOLAM HCL 2 MG/2 ML VIAL ONE ×2 (12:50→19:22)
[2019-02-15] MEDS ORDERED: IOPAMIDOL 370 MG/ML 200 ML INFUS..BTL INJ ONE (13:33)
[2019-02-15 15:54] LABS: BASOPHILS % 0.5 % (0.0-1.0); EOSINOPHILS # (AUTO) 0.1 (0.0-0.4); EOSINOPHILS % 2.6 % (0.0-6.0); HEMATOCRIT 22.6 % (38.2-49.6); HEMOGLOBIN 7.2 g/dL (14.0-18.0); LYMPHOCYTES % 26.5 % (18.0-39.1); MEAN CORPUSCULAR HEMOGLOBIN 26.7 pg (28-32); MEAN CORPUSCULAR HGB CONC 31.9 g/dL (31-35); MEAN CORPUSCULAR VOLUME 83.7 fL (81-99); MONOCYTES # (AUTO) 0.3 (0.2-0.8); MONOCYTES % 7.5 % (4.4-11.3); NEUTROPHILS # (AUTO) 2.4 (2.1-6.9); NEUTROPHILS % 62.1 % (38.7-80.0); PLATELET COUNT 138 x10e3/uL (140-360)
[2019-02-15 16:02] LABS: INR 1.07; PROTHROMBIN TIME 14.4 seconds (11.9-14.5)
[2019-02-15 16:03] LABS: PARTIAL THROMBOPLASTIN TIME 32.7 seconds (23.8-35.5)
[2019-02-15 16:06] VITALS: BP 114/72
[2019-02-15 16:09] LABS: CALCIUM 7.2 mg/dL (8.4-10.2); CREATININE, SERUM 3.96 mg/dL (0.72-1.25)
[2019-02-15] MEDS: SODIUM CHLORIDE 0.9% 1000ML 1,000 ML IV SCH (16:33)
--- NOTE | 2019-02-15 16:49 | Diagnostic Imaging Report ---
PROCEDURE: Genitourinary catheter placement Procedural Personnel Attending physician(s): Imtiaz Manzo MD Fellow physician(s): None Resident physician(s): None Advanced practice provider(s): None Pre-procedure diagnosis: Ureteral obstruction Post-procedure diagnosis: Same Indication: Urinary obstruction Catheter(s) placed because the previous catheter(s) became dislodged within 30 days of placement (QCDR): No Additional clinical history: None Complications: No immediate complications. IMPRESSION: 1. Ultrasound guided access of right renal collecting system. 2. Antegrade nephrostogram under fluoroscopy showing mild hydronephrosis and hydroureter. 3. Placement of 7Fr x 26cm internal nephroureteral stent. 4. Placement of 8.5Fr x 25cm external safety nephrostomy. Plan: Nephrostomy capped. Patient knows to uncap to gravity if develops fevers, chills, increasing flank pain. Continue management per urology. PROCEDURE SUMMARY - Target organ: Unilateral [place] valley kidney - Image-guided placement of genitourinary catheter(s) - Additional procedure(s): None PROCEDURE DETAILS: Pre-procedure Consent: Informed consent for the procedure including risks, benefits and alternatives was obtained and time-out was performed prior to the procedure. Preparation: The site was prepared and draped using maximal sterile barrier technique including cutaneous antisepsis. Anesthesia/sedation Level of anesthesia/sedation: Moderate sedation (conscious sedation) Anesthesia/sedation administered by: Independent trained observer under attending supervision with continuous monitoring of the patient?s level of consciousness and physiologic status Total intra-service sedation time (minutes): 30 Right genitourinary catheter placement Local anesthesia was administered. A needle was advanced into a lower pole calyx under ultrasound and fluoroscopy guidance. A wire was passed down the ureter into the bladder, the tract was serially dilated, and a ureteral stent was placed. A nephrostomy tube was then advanced over the wire into the renal collecting system. Contrast injection was performed. Genitourinary catheter placed: 8.5Fr safety nephrostomy, 7Fr internal double J stent. Findings: Patent flow of contrast through stent into bladder. External catheter securement: Non-absorbable suture Additional genitourinary system intervention Genitourinary intervention: None Location of intervention: Not applicable Device used: Not applicable Description of intervention: Not applicable Post-intervention findings: Not applicable Contrast Contrast agent: Isovue 300 Contrast volume (mL): 10 Radiation Dose Fluoroscopy time (minutes): 8.2 Reference air kerma (mGy): 76.8 Additional Details Additional description of procedure: None Equipment details: None Specimens removed: None. A sample was not sent for analysis. Estimated blood loss (mL): Less than 10 Standardized report: [email or web address] Attestation Signer name: Imtiaz Manzo MD I attest that I was present for the entire procedure. I reviewed the stored images and agree with the report as written. Signed by: Imtiaz Manzo MD on 02/15/2019 4:46 PM
[2019-02-15 16:55] VITALS: BP 114/72
[2019-02-15 16:58] VITALS: BP 114/72
[2019-02-15] MEDS: SODIUM BICARBONATE 650 MG TAB PO SCH (17:00)
[2019-02-15] MEDS: DOCUSATE SODIUM 100 MG CAP PO SCH (17:00)
[2019-02-15 17:03] VITALS: BP 114/72
[2019-02-15] MEDS: MORPHINE SULFATE 2 MG/ML SYR 1ML IV PRN ×2 (17:10→21:19)
[2019-02-15] MEDS ORDERED: ACETAMINOPHEN/CODEINE 300MG - 30MG TAB PO PRN (17:15)
[2019-02-15] MEDS ORDERED: LIDOCAINE HCL 2% LOCAL INJ 5 ML SDV VIAL INJ ONE (18:19)
[2019-02-15] MEDS ORDERED: SEVOFLURANE INHAL SOLN 250 ML PEN BTL ONE (18:19)
[2019-02-15] MEDS ORDERED: PHENYLEPHRINE HCL 1% 10 MG/ML VIAL ONE (18:19)
[2019-02-15] MEDS ORDERED: PROPOFOL IV EMULSION 10 MG/ML 20 ML VIAL ONE (18:19)
[2019-02-15] MEDS ORDERED: SOD POLYSTYRENE SULFONATE SUSP 15 GM/60 ML BTL PO ONE (18:45)
[2019-02-15] MEDS ORDERED: CALCIUM GLUCONATE 10% INJ 9.3 MEQ in SODIUM CHLORIDE 0.9% 100 ML 100 ML IV ONE (19:00)
--- NOTE | 2019-02-15 19:13 | NUR ---
resume care of patient at this time, hyperkalemia and anemia noted, orders for kayexelate and epotin kayla/iron sucrose given verbally during shift change from MD Chau, MD Chau consulting on patient,
[2019-02-15 20:00] VITALS: BP_SYST 133; BP_DIAS 68; BP_DIAS 77
[2019-02-15] MEDS: IRON SUCROSE 100 MG in SODIUM CHLORIDE 0.9% 100 ML 100 ML IV SCH (20:30)
--- NOTE | 2019-02-15 20:51 | Consultation ---
DATE OF CONSULTATION: 02/15/2019 Renal Consult HISTORY OF PRESENT ILLNESS: This is a 38-year-old male with chronic kidney disease stage 4, who was admitted for stent replacement. REASON FOR CONSULT: Increased creatinine and severe hyperkalemia. PAST MEDICAL HISTORY: Includes: 1. Chronic kidney disease stage IV. 2. Type 2 diabetes mellitus. 3. Diabetic neuropathy. 4. Neurogenic bladder with suprapubic catheter. 5. Hypertension. 6. Anemia of chronic disease. PAST SURGICAL HISTORY: Includes: 1. Cataract surgery. 2. Cholecystectomy. 3. Right knee surgery. 4. Suprapubic catheter. SOCIAL HISTORY: No smoking, alcohol, drugs. FAMILY HISTORY: Positive for chronic kidney. ALLERGIES: NONE. MEDICATIONS: Please see list. REVIEW OF SYSTEMS: No change from his previous admission. No nausea, no vomiting, no constipation, no diarrhea. No shortness of breath. No chest pain. No blood in stool. No blood in the urine. No sensory loss or motor loss. No skin changes. Basically negative. PHYSICAL EXAMINATION: GENERAL: Alert, following commands. HEENT: Pupils equal, reactive to accommodation. NECK: No JVD. No bruit. LUNGS: Rhonchi. No rales. HEART: Regular rate and rhythm. No S3. No S4. ABDOMEN: Tender, nondistended. No hepatosplenomegaly. EXTREMITIES: No clubbing, no cyanosis, and no edema. NEUROLOGIC: Cranial nerves II through XII are grossly intact. Sensation intact. Motor intact. VITAL SIGNS: Temperature 96.6, blood pressure 115/72. LABORATORY DATA: Sodium 136, potassium 6, chloride 114, CO2 is 15, BUN 46, creatinine 3.96, hemoglobin 7.2, hematocrit 22.6. ASSESSMENT AND PLAN: 1. Chronic kidney disease stage 4 with a creatinine of 3.96. This is his baseline. 2. Metabolic acidosis. We will start the patient on sodium bicarbonate today. 3. Anemia of chronic disease. The patient is Mosque. Does not want to be on dialysis. Currently with hematuria status post procedure. We will start Epogen and IV iron if he is agreeable. 4. Hyperkalemia. We will treat with calcium gluconate and with Kayexalate. We will recheck labs in a.m. 5. Status post right genitourinary catheter placement. MD JUAN RAMON Becerra /[id number]
[2019-02-15] MEDS: ONDANSETRON HCL INJ 2MG/ML 2ML 2 MG/ML VIAL IV PRN (21:18)
--- NOTE | 2019-02-15 22:15 | NUR ---
patient given kayexalate PO, unable to tolerate small amount of medication, nausea/vomiting noted at this time, PRN zofran IV given tolerated well
[2019-02-16] VITALS (9 sets, daily range): BP systolic 127–176; BP diastolic 81–94
[2019-02-16] MEDS: MORPHINE SULFATE 2 MG/ML SYR 1ML IV PRN ×3 (01:26→16:15)
[2019-02-16] MEDS: SODIUM CHLORIDE 0.9% 1000ML 1,000 ML IV SCH ×3 (01:27→22:33)
--- NOTE | 2019-02-16 02:00 | NUR ---
NO bm as of yet, patient advised that MD order him to receive medication rectally if no result and unable to tolerate medication, pt refusing at this time, report 2 large BM, but flushed before I can evaluate
[2019-02-16] MEDS ORDERED: SOD POLYSTYRENE SULFONATE SUSP 15 GM/60 ML BTL PR ONE (03:45)
[2019-02-16] MEDS ORDERED: SOD POLYSTYRENE SULFONATE SUSP 15 GM/60 ML BTL ONE (04:38)
[2019-02-16 05:46] LABS: BASOPHILS % 0.3 % (0.0-1.0); EOSINOPHILS # (AUTO) 0.1 (0.0-0.4); EOSINOPHILS % 2.7 % (0.0-6.0); HEMATOCRIT 22.7 % (38.2-49.6); HEMOGLOBIN 7.1 g/dL (14.0-18.0); LYMPHOCYTES # (AUTO) 0.9 (1.0-3.2); LYMPHOCYTES % 23.4 % (18.0-39.1); MEAN CORPUSCULAR HEMOGLOBIN 26.6 pg (28-32); MEAN CORPUSCULAR HGB CONC 31.3 g/dL (31-35); MONOCYTES # (AUTO) 0.2 (0.2-0.8); MONOCYTES % 5.8 % (4.4-11.3); NEUTROPHILS # (AUTO) 2.5 (2.1-6.9); NEUTROPHILS % 67.3 % (38.7-80.0); PLATELET COUNT 108 x10e3/uL (140-360); RED BLOOD COUNT 2.67 x10e6/uL (4.3-5.7); RED CELL DISTRIBUTION WIDTH 16.2 % (11.7-14.4)
[2019-02-16] MEDS: ONDANSETRON HCL INJ 2MG/ML 2ML 2 MG/ML VIAL IV PRN ×2 (05:52→16:16)
[2019-02-16 06:08] LABS: ANION GAP 13.1 mmol/L (8-16); CREATININE, SERUM 3.99 mg/dL (0.72-1.25); POTASSIUM 5.1 mmol/L (3.5-5.1)
[2019-02-16 06:27] LABS: CALCIUM 7.1 mg/dL (8.4-10.2)
[2019-02-16] MEDS ORDERED: AZTREONAM (AZACTAM) 0.5 GM in WATER STERILE 10ML VIAL 10 ML IV SCH (09:15)
[2019-02-16] MEDS ORDERED: DEXTROSE 50% SYRINGE 50 ML IV PRN (09:15)
[2019-02-16] MEDS: SODIUM BICARBONATE 650 MG TAB PO SCH ×2 (10:05→17:00)
[2019-02-16] MEDS: DOCUSATE SODIUM 100 MG CAP PO SCH ×2 (10:05→16:16)
[2019-02-16 10:38] LABS: CLARITY,URINE CLOUDY (CLEAR); COLOR,URINE AMBER (YELLOW)
[2019-02-16 10:39] LABS: LEUKOCYTE ESTERASE ,URINE MODERATE (NEGATIVE); NITRITE,URINE NEGATIVE (NEGATIVE)
[2019-02-16 10:40] LABS: PROTEIN,URINE DIPSTICK 2+ (NEGATIVE)
[2019-02-16 10:41] LABS: KETONES,URINE NEGATIVE (NEGATIVE); URINE UROBILINOGEN 0.2 mg/dL (0.2 - 1)
[2019-02-16 10:42] LABS: BACTERIA,URINE RARE /HPF; BILIRUBIN,URINE SMALL (NEGATIVE); EPITHELIAL CELLS,URINE FEW /LPF; RBC,URINE 0-5 /HPF (0-5); WBC,URINE (MAN) 0-5 /HPF (0-5)
[2019-02-16] MEDS ORDERED: EPOETIN ALFA 10000 UNIT/ML VIAL SC ONE (10:45)
[2019-02-16] MEDS: INSULIN LISPRO 100 UNIT/1 ML 3ML VIAL SQ SCH ×3 (11:30→20:18)
[2019-02-16] MEDS: AZTREONAM (AZACTAM) 0.5 GM in SODIUM CHLORIDE 0.9% 50ML 50 ML IV SCH ×2 (11:37→22:32)
--- NOTE | 2019-02-16 17:26 | History and Physical ---
CHIEF COMPLAINT: Status post cystoscopy with management. HISTORY OF PRESENT ILLNESS: The patient is a 38-year-old male, status post cystoscopy. The patient is stable. He has bilateral hydronephrosis. The patient is status post cystoscopy with management. Please review the operative note, status post percutaneous tube. The patient is otherwise stable. He had hydronephrosis found on cystoscopy. The patient also has high potassium level. He is treated. Baseline chronic anemia secondary to chronic kidney disease stage 4. The patient has hemoglobin of 7.1, hematocrit 22.7. Basically, the patient was having increasing shortness of breath especially with increase in activity. He is Bahai and therefore no blood transfusion. The patient received iron infusion and Procrit planned. PAST MEDICAL HISTORY: Chronic kidney disease, near end-stage. Diabetes type 2, on insulin. Hyperkalemia recurrent. Neurogenic urinary bladder with suprapubic catheter. Bilateral hydronephrosis with status post percutaneous tube placement. Cataract surgery, cholecystectomy, right knee and lower extremity extensive previous surgery due to trauma. Hypertension, chronic anemia, diabetic neuropathy, gastroparesis. SOCIAL HISTORY: The patient does not smoke or use alcohol no regular drugs. ALLERGIES: IODINE, IV CONTRAST AND P.O. CONTRAST. MEDICATIONS: Home medications list reviewed. REVIEW OF SYSTEMS: As mentioned above. PHYSICAL EXAMINATION: VITAL SIGNS: Temperature is 98, blood pressure 100/61, pulse rate is 76, and respirations 18. GENERAL: The patient is in no acute distress. He is awake. HEENT: Normocephalic and atraumatic. Pupils reactive. Anicteric. NECK: Supple grossly. PULMONARY: Diminished breath sounds bilaterally. CARDIOVASCULAR: Tachycardia. ABDOMEN: Soft, suprapubic. EXTREMITIES: Multiple surgery on lower extremity. No edema. No cyanosis. NEUROLOGIC: No focal deficit. LABORATORY DATA: WBC is 3.6, hemoglobin 7.1, hematocrit 22.7, and platelets 108. Sodium is 141, potassium 6, chloride 114, bicarb 15, BUN is 46, creatinine is 4, sugar is 126. Urinalysis and urine culture are pending. IMPRESSION: 1. Bilateral hydronephrosis status post cystoscopy and percutaneous tube placement. 2. Chronic anemia with short of breath especially on exertion. The patient is Bahai. Therefore, no blood transfusion. The patient is getting iron infusion and Procrit. 3. Diabetes type 2, on insulin therapy. 4. Multiple baseline chronic medical problem with complication of diabetes. PLAN: I will start the patient on Azactam. Obtain lab work. Continue with Procrit and iron infusion. Insulin sliding scale coverage. Hold sodium bicarb, IV fluid. We will monitor the patient closely. MD SADA Haywood/MODL /[id number]
[2019-02-16] MEDS: EPOETIN ALFA 10000 UNIT/ML VIAL SC SCH (18:04)
--- NOTE | 2019-02-16 19:59 | NUR ---
patient SBP 176, MD bustamante office called for orders,
--- NOTE | 2019-02-16 20:03 | NUR ---
MD Jalloh states "I dont do blood pressures, call MD Yoder", MD yoder notified of Blood pressure of 176/94, ordered for patient to receive PO PRN medication for SBP>170, order carried out
[2019-02-16] MEDS: IRON SUCROSE 100 MG in SODIUM CHLORIDE 0.9% 100 ML 100 ML IV SCH (20:18)
[2019-02-16] MEDS: HYDRALAZINE HCL 25 MG TAB PO PRN (22:00)
[2019-02-17] VITALS (13 sets, daily range): BP systolic 162–194; BP diastolic 83–102
--- NOTE | 2019-02-17 00:19 | NUR ---
patient was given PO Hydralazine two hours prior to the noted, patient reassess one hour after taking medication SBP noted 180's, patient reported he had just return to bed after toileting, patient was allow to rest , given IV pain medication, blood pressure reasessed after 1 hour, remain hypertensive at this time SBP remain in 180's, MD Potts called left message at [phone] detailed message for callback, awaiting callback
[2019-02-17] MEDS: HYDRALAZINE HCL 25 MG TAB PO PRN ×2 (02:07→20:30)
--- NOTE | 2019-02-17 03:31 | NUR ---
patient remains hypertensive, 2nd dose of PRN blood pressure med PO given, good result, currently Blood pressure 160's, asymptomatic, lying in bed, no c/o LEÓN, dizziness, lightheadedness, or chest pain, call light within reach
[2019-02-17 05:56] LABS: BASOPHILS % 0.2 % (0.0-1.0); EOSINOPHILS # (AUTO) 0.1 (0.0-0.4); EOSINOPHILS % 2.7 % (0.0-6.0); HEMATOCRIT 23.1 % (38.2-49.6); HEMOGLOBIN 7.4 g/dL (14.0-18.0); LYMPHOCYTES # (AUTO) 1.2 (1.0-3.2); LYMPHOCYTES % 28.4 % (18.0-39.1); MEAN CORPUSCULAR HEMOGLOBIN 27.1 pg (28-32); MEAN CORPUSCULAR VOLUME 84.6 fL (81-99); MONOCYTES # (AUTO) 0.2 (0.2-0.8); MONOCYTES % 5.9 % (4.4-11.3); NEUTROPHILS # (AUTO) 2.5 (2.1-6.9); NEUTROPHILS % 62.3 % (38.7-80.0); PLATELET COUNT 101 x10e3/uL (140-360); RED BLOOD COUNT 2.73 x10e6/uL (4.3-5.7); RED CELL DISTRIBUTION WIDTH 15.9 % (11.7-14.4)
[2019-02-17 07:19] LABS: ANION GAP 12.6 mmol/L (8-16); CREATININE, SERUM 3.85 mg/dL (0.72-1.25); POTASSIUM 4.6 mmol/L (3.5-5.1)
[2019-02-17 07:23] LABS: CALCIUM 6.6 mg/dL (8.4-10.2)
[2019-02-17] MEDS: INSULIN LISPRO 100 UNIT/1 ML 3ML VIAL SQ SCH ×4 (07:30→20:30)
--- NOTE | 2019-02-17 07:45 | NUR ---
High calcium 6.6 critical value called to Dr. Karimi mstiarra left at supervisor wire rope fabrication #.
[2019-02-17] MEDS ORDERED: MAGNESIUM SULFATE 2GM/50ML 50 ML IV ONE ×2 (08:15→12:10)
[2019-02-17 08:19] LABS: ALBUMIN 2.4 g/dL (3.5-5.0); PHOSPHORUS 4.3 MG/DL (2.3-4.7)
[2019-02-17] MEDS: MAGNESIUM OXIDE 400 MG TAB PO SCH ×2 (09:54→17:00)
[2019-02-17] MEDS: SODIUM BICARBONATE 650 MG TAB PO SCH ×2 (09:54→17:00)
[2019-02-17] MEDS: DOCUSATE SODIUM 100 MG CAP PO SCH ×2 (09:54→17:00)
[2019-02-17] MEDS: AZTREONAM (AZACTAM) 0.5 GM in SODIUM CHLORIDE 0.9% 50ML 50 ML IV SCH ×2 (09:54→21:46)
[2019-02-17] MEDS: MORPHINE SULFATE 2 MG/ML SYR 1ML IV PRN ×2 (14:51→22:12)
[2019-02-17] MEDS: ONDANSETRON HCL INJ 2MG/ML 2ML 2 MG/ML VIAL IV PRN (14:52)
[2019-02-17] MEDS: NIFEDIPINE CR 30 MG TAB PO SCH (19:18)
--- NOTE | 2019-02-17 19:23 | NUR ---
Had a little nausea and a small amt vomit, around 300 cc, states he does it sometimes but will feel better with ck, same given
[2019-02-17] MEDS: IRON SUCROSE 100 MG in SODIUM CHLORIDE 0.9% 100 ML 100 ML IV SCH (20:30)
[2019-02-17] MEDS ORDERED: SODIUM CHLORIDE 0.9% 250ML 250 ML ONE (20:36)
[2019-02-18] VITALS (8 sets, daily range): BP systolic 137–168; BP diastolic 66–90
[2019-02-18] MEDS: ONDANSETRON HCL INJ 2MG/ML 2ML 2 MG/ML VIAL IV PRN ×4 (04:20→22:06)
[2019-02-18] MEDS: MORPHINE SULFATE 2 MG/ML SYR 1ML IV PRN ×3 (04:20→22:06)
[2019-02-18 06:03] LABS: BASOPHILS % 0.4 % (0.0-1.0); EOSINOPHILS # (AUTO) 0.1 (0.0-0.4); EOSINOPHILS % 2.1 % (0.0-6.0); HEMATOCRIT 23.4 % (38.2-49.6); HEMOGLOBIN 7.6 g/dL (14.0-18.0); LYMPHOCYTES # (AUTO) 1.2 (1.0-3.2); LYMPHOCYTES % 24.2 % (18.0-39.1); MEAN CORPUSCULAR HEMOGLOBIN 26.9 pg (28-32); MEAN CORPUSCULAR HGB CONC 32.5 g/dL (31-35); MEAN CORPUSCULAR VOLUME 82.7 fL (81-99); MONOCYTES # (AUTO) 0.3 (0.2-0.8); MONOCYTES % 6.4 % (4.4-11.3); NEUTROPHILS # (AUTO) 3.2 (2.1-6.9); NEUTROPHILS % 65.7 % (38.7-80.0); PLATELET COUNT 103 x10e3/uL (140-360); RED BLOOD COUNT 2.83 x10e6/uL (4.3-5.7); RED CELL DISTRIBUTION WIDTH 15.9 % (11.7-14.4)
[2019-02-18 06:25] LABS: ANION GAP 14.4 mmol/L (8-16); CREATININE, SERUM 3.23 mg/dL (0.72-1.25); POTASSIUM 4.4 mmol/L (3.5-5.1)
[2019-02-18 06:31] LABS: CALCIUM 6.9 mg/dL (8.4-10.2)
[2019-02-18 06:53] LABS: FERRITIN 23.96 ng/mL (21.81-274.66)
--- NOTE | 2019-02-18 07:00 | NUR ---
BEDSIDE SHIFT REPORT RECEIVED FROM LORIN FOSS. PT DENIES NEEDS AT THIS TIME.
[2019-02-18] MEDS ORDERED: CALCIUM GLUCONATE 10% INJ 9.3 MEQ in SODIUM CHLORIDE 0.9% 100 ML 100 ML IV ONE (08:00)
[2019-02-18] MEDS: DOCUSATE SODIUM 100 MG CAP PO SCH ×2 (08:11→17:20)
[2019-02-18] MEDS: MAGNESIUM OXIDE 400 MG TAB PO SCH ×2 (08:11→17:20)
[2019-02-18] MEDS: NIFEDIPINE CR 30 MG TAB PO SCH (08:12)
[2019-02-18] MEDS: INSULIN LISPRO 100 UNIT/1 ML 3ML VIAL SQ SCH ×4 (08:17→20:16)
[2019-02-18] MEDS: SODIUM BICARBONATE 650 MG TAB PO SCH ×2 (08:34→17:20)
[2019-02-18] MEDS: AZTREONAM (AZACTAM) 0.5 GM in SODIUM CHLORIDE 0.9% 50ML 50 ML IV SCH ×2 (10:00→21:28)
--- NOTE | 2019-02-18 14:30 | NUR ---
PT OF THE FLOOR TO IR FOR REMOVAL OF NEPHRECTOMY TUBE.
--- NOTE | 2019-02-18 14:46 | NUR ---
PT BACK TO THE FLOOR FROM IR. PT TOLERATED. VITALS WNL. PT DENIES NEEDS AT THIS TIME.
--- NOTE | 2019-02-18 15:45 | Diagnostic Imaging Report ---
Fluoroscopic guided removal of right nephrostomy catheter Clinical indication: Patient indwelling right ureteral stent. No longer needs nephrostomy catheter. Technique/findings: The patient's right nephrostomy catheter was removed under fluoroscopic control in order to not dislodge the right double-J ureteral stent. The catheter was removed in total. The double-J stent remains in place. Total fluoroscopy time 0.1 minutes. Estimated dose: 0.452 mGy BEKAH Impression: Technically successful and uncomplicated fluoroscopic guided right nephrostomy tube removal. Signed by: Ronnie Guallpa MD on 02/18/2019 3:41 PM
--- NOTE | 2019-02-18 19:11 | NUR ---
WALKING ROUNDS PERFORMED, RECEIVED PT LAYING SEMI FOWLERS IN BED, AAOX3, RR EVEN AND NON-LABORED, ON ROOM AIR. NO S/SX OF DISTRESS NOTED. DRESSING TO (R) FLANK CDI. LEFT PT LAYING SEMI FOWLERS IN BED, BED IN LOW LOCKED POSITION, SIDE RAILS UPX2, CALL LIGHT AND PHONE WITHIN REACH.
[2019-02-18] MEDS: EPOETIN ALFA 10000 UNIT/ML VIAL SC SCH (20:16)
[2019-02-18] MEDS: IRON SUCROSE 100 MG in SODIUM CHLORIDE 0.9% 100 ML 100 ML IV SCH (20:16)
[2019-02-19] VITALS (7 sets, daily range): BP systolic 144–169; BP diastolic 78–100
[2019-02-19] MEDS: ONDANSETRON HCL INJ 2MG/ML 2ML 2 MG/ML VIAL IV PRN ×3 (02:30→16:15)
[2019-02-19] MEDS: MORPHINE SULFATE 2 MG/ML SYR 1ML IV PRN ×4 (02:34→21:00)
--- NOTE | 2019-02-19 07:00 | NUR ---
BEDSIDE SHIFT REPORT RECEIVED FROM LORIN FOSS. PT DENIES NEEDS AT THIS TIME.
[2019-02-19] MEDS: INSULIN LISPRO 100 UNIT/1 ML 3ML VIAL SQ SCH ×4 (07:30→21:00)
[2019-02-19] MEDS: MAGNESIUM OXIDE 400 MG TAB PO SCH ×2 (08:10→18:03)
[2019-02-19] MEDS: DOCUSATE SODIUM 100 MG CAP PO SCH ×2 (08:10→18:03)
[2019-02-19] MEDS: SODIUM BICARBONATE 650 MG TAB PO SCH ×2 (08:11→18:03)
[2019-02-19] MEDS: NIFEDIPINE CR 30 MG TAB PO SCH (08:11)
[2019-02-19] MEDS ORDERED: CEFAZOLIN SOD 1 GM VIAL IV SCH (09:15)
[2019-02-19] MEDS: CEFAZOLIN SOD 1 GM/NS 50ML 50 ML IV SCH ×3 (09:50→21:06)
[2019-02-19 11:37] LABS: BASOPHILS % 0.3 % (0.0-1.0); EOSINOPHILS # (AUTO) 0.1 (0.0-0.4); EOSINOPHILS % 3.3 % (0.0-6.0); HEMATOCRIT 23.2 % (38.2-49.6); HEMOGLOBIN 7.5 g/dL (14.0-18.0); LYMPHOCYTES # (AUTO) 1.1 (1.0-3.2); LYMPHOCYTES % 30.9 % (18.0-39.1); MEAN CORPUSCULAR HEMOGLOBIN 26.4 pg (28-32); MEAN CORPUSCULAR HGB CONC 32.3 g/dL (31-35); MEAN CORPUSCULAR VOLUME 81.7 fL (81-99); MONOCYTES # (AUTO) 0.3 (0.2-0.8); MONOCYTES % 6.9 % (4.4-11.3); NEUTROPHILS # (AUTO) 2.1 (2.1-6.9); NEUTROPHILS % 57.5 % (38.7-80.0); PLATELET COUNT 95 x10e3/uL (140-360); RED BLOOD COUNT 2.84 x10e6/uL (4.3-5.7); RED CELL DISTRIBUTION WIDTH 15.9 % (11.7-14.4)
[2019-02-19 12:00] LABS: ANION GAP 10.4 mmol/L (8-16); CALCIUM 7.2 mg/dL (8.4-10.2); CREATININE, SERUM 3.39 mg/dL (0.72-1.25); POTASSIUM 4.4 mmol/L (3.5-5.1)
--- NOTE | 2019-02-19 12:31 | NUR ---
VIRA FROM STANDPOINT OF DR. TRAMMELL FOR PT TO DC HOME AND FOLLOW UP IN HIS OFFICE OUTPATIENT FOR EPOTIEN INJECTIONS.
--- NOTE | 2019-02-19 19:48 | NUR ---
Received change of shift report from AM nurse. Walking rounds completed. Patient in bed. Denies pain at this time. Continue monitor.
[2019-02-20] VITALS: BP 160/88
--- NOTE | 2019-02-20 | NUR ---
Patient AAOx3 in bed. Received pain meds. Patient received 4units of insulin for BS of 176. Snack given. Patient with super pubic cath. draining yellow urine,
[2019-02-20] MEDS: ONDANSETRON HCL INJ 2MG/ML 2ML 2 MG/ML VIAL IV PRN ×2 (03:53→13:32)
[2019-02-20] MEDS: MORPHINE SULFATE 2 MG/ML SYR 1ML IV PRN (03:53)
[2019-02-20] MEDS: CEFAZOLIN SOD 1 GM/NS 50ML 50 ML IV SCH (05:56)
--- NOTE | 2019-02-20 06:09 | NUR ---
Patient received pain and nausea meds and is resting quitly at this time.
[2019-02-20] MEDS: HYDRALAZINE HCL 25 MG TAB PO PRN (06:35)
[2019-02-20] MEDS: INSULIN LISPRO 100 UNIT/1 ML 3ML VIAL SQ SCH ×2 (07:30→11:30)
[2019-02-20 08:00] VITALS: BP 172/86
[2019-02-20] MEDS: DOCUSATE SODIUM 100 MG CAP PO SCH (08:38)
[2019-02-20] MEDS: SODIUM BICARBONATE 650 MG TAB PO SCH (08:38)
[2019-02-20] MEDS: MAGNESIUM OXIDE 400 MG TAB PO SCH (08:38)
[2019-02-20] MEDS ORDERED: NIFEDIPINE CR 30 MG TAB PO SCH (09:00)
[2019-02-20] MEDS ORDERED: EPOETIN ALFA 10000 UNIT/ML VIAL SC ONE (10:00)
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
[2019-02-20 12:00] VITALS: BP 155/81
--- NOTE | 2019-02-20 13:03 | Discharge Summary ---
CONSULTANTS: Dr. Lew Karimi. Dr. Castro Jalloh. FINAL DIAGNOSES: 1. Bilateral hydronephrosis status post cystoscopy with right ureteral stent placement. The left hydronephrosis did not have successful placement of stent. The patient has chronic bilateral hydronephrosis. 2. Chronic kidney disease stage 4. 3. Chronic hyperkalemia with treatment. 4. Chronic anemia. The patient is a Jew. No blood transfusion. The patient is status post iron infusion and Epogen. SUMMARY: The patient is a [id number], chronically anemic due to chronic kidney failure. The patient is status post cystoscopy with right ureteral stent placement. His hemoglobin, hematocrit is 7.2 and 22.6, today is 7.5 and 23.2. The patient did receive three doses of Epogen. The patient is stable. No gross bleed. Blood pressure is elevated. The patient is on blood pressure medication. He is otherwise stable. The patient has a suprapubic catheter. He has diabetes, ongoing treatment. The patient is otherwise stable today. Laboratory included WBC 3.6, hemoglobin 7.5, hematocrit 23.2, and platelets is 95. Chemistry; sodium 125, potassium 4.4, chloride 107, bicarb 22, BUN 28, creatinine 3.4, glucose 158. Urinalysis, cloudy urine. Microbiology is showing that the patient has staphylococcus aureus is beta-lactam resistant, but sensitive to cephalosporin. The patient is otherwise stable. He will be discharged home with Ceftin 500 mg twice a day for 7 days. He will follow up with Dr. Karimi next week for arrangement for Epogen treatment. The patient will need authorization from his insurance approval. He will follow with Dr. Castro Jalloh for postoperative care. The patient is otherwise stable, discharged home today. Follow up as instructed. MD SADA Haywood/NOREEN /[id number]
--- NOTE | 2019-04-01 00:06 | Operative Report ---
DATE OF PROCEDURE: 02/15/2019 SURGEON: Castro Jalloh MD PREOPERATIVE DIAGNOSES: 1. Hydronephrosis due to the ureteral stricture. 2. Urinary tract infection. 3. Chronic urinary retention. 4. Suprapubic cystostomy. POSTOPERATIVE DIAGNOSES: 1. Hydronephrosis due to the ureteral stricture. 2. Urinary tract infection. 3. Chronic urinary retention. 4. Suprapubic cystostomy. OPERATION PERFORMED: 1. Cystourethroscopy with left ureteral catheterization and retrograde ureteropyelography (separate procedure performed for the hydronephrosis and bladder infection). 2. Interpretation of retrograde ureteropyelography. 3. Change of cystostomy tube (separate procedure performed for the cystostomy tube and for chronic retention. 4. Interpretation of cystography. 5. Supervision of fluoroscopy, no radiologist present. ANESTHESIA: General. COMPLICATIONS: None. CLINICAL SUMMARY: Sukh Lozano is a very complicated 38-year-old man. The patient has had a history of bilateral ureteral strictures, has had bilateral hydronephrosis. He has significant renal insufficiency and will likely be on dialysis in the future. The patient also has resistant urinary tract infections. He also has a suprapubic cystostomy as the result of his neurogenic bladder with chronic urinary retention. The patient is brought to the operating room for bilateral stent placement based on the results of bilateral retrograde pyelograms. He is aware of the risks of bleeding, infection, injury to adjacent structures, need for additional procedures and he elected to proceed. He understands that this may be a last ditch effort and slowing down his progression towards dialysis. OPERATIVE PROCEDURE IN DETAIL: Informed consent was verified. Sukh Lozano was properly identified, taken to the operating room, and placed on the cystostomy table in supine position. Anesthesia was uneventfully begun. The was then carefully and gently repositioned in the dorsal lithotomy position with all pressure points well padded. His genitalia were prepared and draped in usual sterile fashion. The cystostomy tube was removed prior to the preparation. We placed a Barcenas catheter into the tract. We brought it to the level of the patient's bladder, filled the balloon with 10 mL of sterile water. The catheter was irrigated to and fro to ensure it worked properly. The cystoscope sheath with the visual obturator was then placed, was atraumatically inserted into the patient's urethra. It was guided down the relatively unremarkable urethra. Prior urethral stricture that was previously documented was low on the present. We went through the prostate bed, which was not significant for any obstruction. We entered the patient's bladder where panendoscopy revealed chronic cystitis as well as very heavy trabeculations. There were no tumors. There were no stones. There were no suspicious lesions. Some blood clot was removed. The cystostomy balloon was noted along the anterior bladder wall. Ureteral catheter was used to cannulate the left ureter and retrograde ureteral pyelograms were performed. Interpretation of retrograde ureteropyelography contrast was instilled in a retrograde fashion via the left side. It revealed hydroureteronephrosis with chronic-appearing hydronephrosis and chronic-appearing ureterectomy cyst. This all culminate in the ureterovesical region where there is severe J-hooking accompanied by narrowing as the ureter courses through the very thickened bladder wall. Despite the severe hydronephrosis, it appeared that the upper tract does drained albeit slowly. We elected not to stent the left side. A thorough search failed to reveal the right ureteral orifice. We even tried randomly poking hydrophilic wires in the area where the ureter should be. We were unable to access the ureteral orifice. Indigo carmine would be of worth to use in a patient with such poor renal function. The patient's bladder was drained. The cystoscope was withdrawn. Cystography was performed. Interpretation cystography contrast was injected via suprapubic cystostomy. The bladder has the appearance of a Renu tree bladder. It is heavily trabeculated. There is no reflux of the right ureter. The patient's bladder was drained. Cystoscope was withdrawn. PLANS: Plans will be to admit the patient, so that the philosophy specialist and the hl7 developer may optimize his medical situation. We will also plan on Interventional Radiology to evaluate the patient for right nephrostomy versus nephroureteral stent. Again, these interventions were all done in the hopes of delaying the patient's advancement to hemodialysis. Castro Jalloh MD [place]/MODL /[id number]
== END 2019-02-20 14:07 | disposition home or self-care (01) | DRG 660 ==
LOC: OR 07:05 → PACU V 10:15 → MED/SURG 15:00
PROVIDERS: ADMIT Urology; ATTEND Urology
PROC: 0T768DZ Dilation of Right Ureter with Intraluminal Device, Via Natural or Artificial Opening Endoscopic (ICD-10-PCS; 2019-02-15)
PROC: 0T778ZZ Dilation of Left Ureter, Via Natural or Artificial Opening Endoscopic (ICD-10-PCS; 2019-02-15)
PROC: BT141ZZ Fluoroscopy of Kidneys, Ureters and Bladder using Low Osmolar Contrast (ICD-10-PCS; 2019-02-15)
PROC: 0T2BX0Z Change Drainage Device in Bladder, External Approach (ICD-10-PCS; 2019-02-15)
PROC: 0T9030Z Drainage of Right Kidney with Drainage Device, Percutaneous Approach (ICD-10-PCS; principal; 2019-02-15 09:00)
PROC: 0TP5X0Z Removal of Drainage Device from Kidney, External Approach (ICD-10-PCS; 2019-02-18)
DX: N35.919 Unspecified urethral stricture, male, unspecified site (principal); N13.30 Unspecified hydronephrosis; N20.1 Calculus of ureter; Z16.12 Extended spectrum beta lactamase (ESBL) resistance; E87.2 Acidosis; N39.0 Urinary tract infection, site not specified; N18.4 Chronic kidney disease, stage 4 (severe); N17.9 Acute kidney failure, unspecified; I12.9 Hypertensive chronic kidney disease with stage 1 through stage 4 chronic kidney disease, or unspecified chronic kidney disease; E87.5 Hyperkalemia; B95.61 Methicillin susceptible Staphylococcus aureus infection as the cause of diseases classified elsewhere; E11.22 Type 2 diabetes mellitus with diabetic chronic kidney disease; D63.8 Anemia in other chronic diseases classified elsewhere; N31.8 Other neuromuscular dysfunction of bladder
CPT/HCPCS: 36415; 50430; 74420; 74470; 76942; 80048; 81001; 82040; 82728; 82948; 83735; 84100; 85025; 85610; 85730; 87086; 87186; 93005; 96361; 96372; C1758; C1769; J0610; J0690; J1756; J2001; J2250; J2270; J2370; J2405; J3010; J3475; J7030; J7050; Q4081; Q9967

== ENCOUNTER 2019-05-06 18:29 | Inpatient (IN) | payer BC ==
[~2019-05-06] VITALS: Ht 180.3 cm; Wt 97.0 kg
[2019-05-06] MEDS ORDERED: SODIUM CHLORIDE 0.9% 1000ML 1,000 ML IV STA (19:10)
[2019-05-06] MEDS ORDERED: IBUPROFEN 400 MG TAB PO ONE (19:15)
[2019-05-06] MEDS ORDERED: ACETAMINOPHEN 325 MG TAB PO ONE (19:15)
[2019-05-06 19:22] LABS: BASOPHILS % 0.3 % (0.0-1.0); EOSINOPHILS % 0.4 % (0.0-6.0); HEMATOCRIT 27.6 % (38.2-49.6); HEMOGLOBIN 8.5 g/dL (14.0-18.0); LYMPHOCYTES # (AUTO) 0.6 (1.0-3.2); LYMPHOCYTES % 7.9 % (18.0-39.1); MEAN CORPUSCULAR HEMOGLOBIN 26.1 pg (28-32); MEAN CORPUSCULAR HGB CONC 30.8 g/dL (31-35); MEAN CORPUSCULAR VOLUME 84.7 fL (81-99); MONOCYTES # (AUTO) 0.5 (0.2-0.8); MONOCYTES % 6.6 % (4.4-11.3); NEUTROPHILS # (AUTO) 6.7 (2.1-6.9); NEUTROPHILS % 84.3 % (38.7-80.0); PLATELET COUNT 110 x10e3/uL (140-360); RED BLOOD COUNT 3.26 x10e6/uL (4.3-5.7); RED CELL DISTRIBUTION WIDTH 15.6 % (11.7-14.4)
[2019-05-06 19:35] LABS: STREPTOCOCCUS GRP A ANTIGEN NEGATIVE (NEGATIVE)
[2019-05-06 19:40] LABS: ALBUMIN 2.8 g/dL (3.5-5.0); ALBUMIN/GLOBULIN RATIO 0.5 (0.8-2.0); ALKALINE PHOSPHATASE 171 IU/L (40-150); ANION GAP 11.5 mmol/L (8-16); BLOOD UREA NITROGEN 55 mg/dL (7-26); BUN/CREATININE RATIO 9 (6-25); CALCIUM 7.2 mg/dL (8.4-10.2); CARBON DIOXIDE 17 mmol/L (22-29); CHLORIDE 111 mmol/L (98-107); CREATININE, SERUM 6.24 mg/dL (0.72-1.25); EST GLOMERULAR FILTRATION RATE 10 ML/MIN (60-); GLUCOSE 183 mg/dL (74-118); SODIUM 134 mmol/L (136-145)
[2019-05-06 19:41] LABS: ALANINE AMINOTRANSFERASE < 6 IU/L (0-55); POTASSIUM 5.5 mmol/L (3.5-5.1)
--- NOTE | 2019-05-06 19:41 | Diagnostic Imaging Report ---
EXAMINATION: CHEST 2 VIEWS INDICATION: Flulike symptoms, renal pain ^fls COMPARISON: Chest x-ray 05/03/2018 FINDINGS: PA and lateral views TUBES and LINES: None. LUNGS: Lungs are well inflated. There is no evidence of pneumonia or pulmonary edema. PLEURA: No pleural effusion or pneumothorax. HEART AND MEDIASTINUM: The cardiomediastinal silhouette is unremarkable. BONES AND SOFT TISSUES: No focal osseous lesions. Soft tissues are unremarkable. UPPER ABDOMEN: Unremarkable. IMPRESSION: No acute thoracic abnormality. Signed by: Dr. Sandy Powers MD on 05/06/2019 7:38 PM
[2019-05-06 19:44] LABS: INFLUENZAE A&B ANTIGEN (RAPID) NEGATIVE (NEGATIVE)
[2019-05-06 20:11] LABS: BILIRUBIN,URINE NEGATIVE (NEGATIVE); CLARITY,URINE CLOUDY (CLEAR); COLOR,URINE YELLOW (YELLOW); KETONES,URINE NEGATIVE (NEGATIVE); LEUKOCYTE ESTERASE ,URINE LARGE (NEGATIVE); NITRITE,URINE POSITIVE (NEGATIVE); PROTEIN,URINE DIPSTICK >=300 (NEGATIVE); URINE UROBILINOGEN 0.2 mg/dL (0.2 - 1)
[2019-05-06] MEDS ORDERED: DEXTROSE 50% SYRINGE 50 ML IV STA (20:11)
[2019-05-06] MEDS ORDERED: SODIUM BICARBONATE 8.4% INJ 50 ML SYR IV STA (20:11)
[2019-05-06] MEDS ORDERED: CALCIUM CHLORIDE 10% 1.36 MEQ/ML 10ML SYR IV STA (20:11)
[2019-05-06] MEDS ORDERED: INSULIN REGULAR, HUMAN 100 UNIT/1 ML 3ML VIAL IV ONE (20:15)
[2019-05-06] MEDS ORDERED: SOD POLYSTYRENE SULFONATE SUSP 15 GM/60 ML BTL PO ONE (20:15)
[2019-05-06 20:28] LABS: BACTERIA,URINE MANY /HPF; EPITHELIAL CELLS,URINE RARE /LPF
[2019-05-06] MEDS ORDERED: SODIUM CHLORIDE 0.9% 200 ML ONE (20:32)
[2019-05-06] MEDS ORDERED: SODIUM CHLORIDE FLUSH 10 ML SYR INJ PRN (20:45)
[2019-05-06] MEDS ORDERED: CALCIUM CHLORIDE 10% SYRINGE 13.6 MEQ in SODIUM CHLORIDE 0.9% 100 ML IV ONE (20:45)
[2019-05-06] MEDS: MEROPENEM 500MG/ NS 50ML 50 ML IV SCH (21:11)
[2019-05-06] MEDS ORDERED: ACETAMINOPHEN 325 MG TAB PO PRN (21:15)
[2019-05-06] MEDS: MORPHINE SULFATE 2 MG/ML SYR 1ML IV PRN (21:54)
[2019-05-06] MEDS: ONDANSETRON HCL INJ 2MG/ML 2ML 2 MG/ML VIAL IV PRN (21:55)
[2019-05-06] MEDS ORDERED: MEROPENEM 1GM 100 ML IV SCH (22:00)
[2019-05-06] MEDS ORDERED: ONDANSETRON HCL INJ 2MG/ML 2ML 2 MG/ML VIAL IV STA (22:26)
[2019-05-06 23:00] VITALS: BP 119/70
[2019-05-06 23:03] VITALS: BP 119/70
--- NOTE | 2019-05-06 23:05 | NUR ---
RECEIVED TELEPHONE REPORT FROM ER. 38 YEAR OLD MALE ARRIVED VIA STRETCHER FROM ER. pT IS ALERT AND ORIENTED X3. RESPIRATIONS ARE EVEN AND UNLABORED. FLU AND STREP NEGATIVE. DX FEVER, CHILLS, RT KNEE SWELLING. PT HAS SUPRAPUBIC CATHETER IN PLACE - SEEING DR KEVIN FOR THIS. SUPRAPUBIC CATHETER IS DRAING CLOUDY YELLOW URINE. UA IN ER SHOWED UTI.BUN AND CREATININE GOING UP- NEED DIALYSIS PER PT BUT HE WANTS TO GET ON TRANSPLANT LIST.20 G SL RT AC PATENT AND DRESSING INTACT.RT KNEE SWOLLEN. DENIES PAIN. ORIENTED TO ROOM AND PMC. BED LOCKED AND IN LOW POSITION. CALL LIGHT WITHIN REACH.
[2019-05-07] VITALS (10 sets, daily range): BP systolic 114–153; BP diastolic 68–87
[2019-05-07] MEDS: MORPHINE SULFATE 2 MG/ML SYR 1ML IV PRN ×5 (03:32→22:30)
[2019-05-07 06:00] LABS: BASOPHILS % 0.4 % (0.0-1.0); EOSINOPHILS % 0.4 % (0.0-6.0); HEMATOCRIT 24.8 % (38.2-49.6); HEMOGLOBIN 7.7 g/dL (14.0-18.0); LYMPHOCYTES # (AUTO) 0.9 (1.0-3.2); LYMPHOCYTES % 15.2 % (18.0-39.1); MEAN CORPUSCULAR HEMOGLOBIN 26.6 pg (28-32); MEAN CORPUSCULAR VOLUME 85.5 fL (81-99); MONOCYTES # (AUTO) 0.6 (0.2-0.8); MONOCYTES % 9.9 % (4.4-11.3); NEUTROPHILS # (AUTO) 4.2 (2.1-6.9); NEUTROPHILS % 73.6 % (38.7-80.0); PLATELET COUNT 104 x10e3/uL (140-360); RED CELL DISTRIBUTION WIDTH 15.6 % (11.7-14.4)
[2019-05-07 06:08] LABS: CALCIUM 7.1 mg/dL (8.4-10.2); CREATININE, SERUM 5.56 mg/dL (0.72-1.25)
[2019-05-07] MEDS: ONDANSETRON HCL INJ 2MG/ML 2ML 2 MG/ML VIAL IV PRN ×4 (08:20→22:29)
--- NOTE | 2019-05-07 11:46 | NUR ---
Patient denies needing anything at this time.
--- NOTE | 2019-05-07 13:25 | NUR ---
Nutrition Screen Note RD Recommendation for Physician: - Rec adding ADA 2200 diet restriction to current diet order Plan of Care: RD following, monitoring for tolerance and adequacy Nutrition reason for involvement: Diagnosis Primary Diagnose(s): End Stage Renal Failure PMH: 1. Chronic kidney disease, stage 4. 2. Type 2 diabetes mellitus. 3. Hypertension. 5. Anemia of chronic disease. Ht: 71in Wt: 216.44lb BMI: 30.2kg/m2 IBW: 172lb +/- 10% RD Assessment: (11/05) Chart reviewed. Labs and meds reviewed. 38yo M, who was admitted for end stage renal failure. K has trend down from 5.5 to 5.0. No phosphorus lab. Pt was well known to me from his recent admissions. 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 Pt denied chewing/swallowing problems. Pt reported of some nausea/ vomiting and was given Zofran. At this time, it is unknown that if pt need outpatient HD treatment. Pt wants to get on the kidney/ pancreas transplant list. RD offered diet education but pt was not interested. Will continue to monitor and follow. Current Diet: renal diet Malnutrition Evaluation (05/06) The patient does not meet criteria for a specified degree of malnutrition at this time. Will re-evaluate at follow-up as appropriate. Diet Education Needs Assessment: Diet education indicated but pt refused. - Handouts and diet instruction were given during his last visit in 09/2018. Nutrition Care Level: low Signed: Lupe Germain, MS, RD, LD
[2019-05-07] MEDS ORDERED: FUROSEMIDE INJ 10 MG/ML 4 ML VIAL IV ONE (19:15)
--- NOTE | 2019-05-07 19:20 | NUR ---
RECEIVED REPORT FROM OFFGOING NURSE. PATIENT IS RESTING COMFORTABLY IN THE BED. BED IS IN THE LOWEST POSITION AND CALL LIGHT IS WITHIN REACH. WILL CONTINUE TO MONITOR PATIENT.
[2019-05-07] MEDS ORDERED: SODIUM CHLORIDE 0.9% 250ML 250 ML ONE (20:29)
[2019-05-07] MEDS: MEROPENEM 500MG/ NS 50ML 50 ML IV SCH (20:36)
--- NOTE | 2019-05-07 20:54 | NUR ---
patients blood sugar is 234, MD notified, received new order for consult to welt rougher.
[2019-05-07] MEDS: HEPARIN SOD (PORCINE) 5,000 UNIT/ML VIAL SC SCH (21:00)
[2019-05-08] VITALS (8 sets, daily range): BP systolic 112–138; BP diastolic 63–78
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
--- NOTE | 2019-05-08 01:38 | Consultation ---
DATE OF CONSULTATION: 05/07/2019 REASON FOR CONSULTATION: UTI. HISTORY OF PRESENT ILLNESS: This patient is a 38-year-old, who has history of end-stage renal disease, diabetes mellitus, comes in with fever and chills. He is telling me he is going to have plan to have pancreatic transplant, but his workup was positive RPR, but he is here because of fever, chills, urgency, frequency. The patient comes here, started on meropenem. I was asked to see him. He is known to have history of multidrug resistant. PAST MEDICAL HISTORY: End-stage renal disease, on hemodialysis, diabetes mellitus, neuropathy. PAST SURGICAL HISTORY: Multiple debridement on the feet osteomyelitis. ALLERGIES: NKA. SOCIAL HISTORY: There is no smoking, drug abuse, or alcohol abuse. PHYSICAL EXAMINATION: GENERAL: He is currently alert, oriented, does not seem in acute distress. VITAL SIGNS: Stable, currently afebrile. HEENT: He is not icteric. NECK: Supple. CHEST: Clear. COR: S1 and S2. ABDOMEN: Soft. IMPRESSION: Sepsis and urinary tract infection. Agree with meropenem. Urine cultures and blood cultures. End-stage renal disease, on hemodialysis, diabetes mellitus, neuropathy, positive RPR, to follow up as an outpatient. MD PIPPA Steel/NOREEN /[id number]
[2019-05-08] MEDS: MORPHINE SULFATE 2 MG/ML SYR 1ML IV PRN ×5 (02:25→21:19)
[2019-05-08] MEDS: ONDANSETRON HCL INJ 2MG/ML 2ML 2 MG/ML VIAL IV PRN ×5 (02:25→21:19)
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
[2019-05-08 05:29] LABS: BASOPHILS % 0.2 % (0.0-1.0); EOSINOPHILS # (AUTO) 0.1 (0.0-0.4); HEMATOCRIT 24.7 % (38.2-49.6); HEMOGLOBIN 7.6 g/dL (14.0-18.0); LYMPHOCYTES # (AUTO) 1.2 (1.0-3.2); MEAN CORPUSCULAR HEMOGLOBIN 26.1 pg (28-32); MEAN CORPUSCULAR HGB CONC 30.8 g/dL (31-35); MEAN CORPUSCULAR VOLUME 84.9 fL (81-99); MONOCYTES # (AUTO) 0.6 (0.2-0.8); MONOCYTES % 12.5 % (4.4-11.3); NEUTROPHILS % 60.9 % (38.7-80.0); PLATELET COUNT 94 x10e3/uL (140-360); RED BLOOD COUNT 2.91 x10e6/uL (4.3-5.7); RED CELL DISTRIBUTION WIDTH 15.5 % (11.7-14.4)
[2019-05-08 05:46] LABS: ANION GAP 10.6 mmol/L (8-16); CALCIUM 7.2 mg/dL (8.4-10.2); CREATININE, SERUM 5.5 mg/dL (0.72-1.25); POTASSIUM 4.6 mmol/L (3.5-5.1)
--- NOTE | 2019-05-08 07:00 | NUR ---
REPORT GIVEN TO DAY NURSE. PATIENT IS RESTING COMFORTABLY IN BED. BED IS IN LOWEST POSITION AND CALL LIGHT IS WITHIN REACH.
[2019-05-08] MEDS: SODIUM BICARBONATE 650 MG TAB PO SCH ×2 (08:24→17:18)
[2019-05-08] MEDS: NIFEDIPINE CR 30 MG TAB PO SCH (08:24)
[2019-05-08] MEDS: HEPARIN SOD (PORCINE) 5,000 UNIT/ML VIAL SC SCH ×2 (08:26→21:00)
[2019-05-08] MEDS: INSULIN LISPRO 100 UNIT/1 ML 3ML VIAL SQ SCH ×4 (08:27→20:56)
[2019-05-08 19:19] LABS: FREE T4 (FREE THYROXINE) 0.79 ng/dL (0.8-1.8); THYROID STIMULATING HORMONE 1.669 uIU/mL (0.350-4.940)
--- NOTE | 2019-05-08 19:20 | NUR ---
RECEIVED REPORT FROM DAY NURSE. PATIENT IS RESTING COMFORTABLY IN THE BED. BED IS IN THE LOWEST POSITION AND CALL LIGHT IS WITHIN REACH. WILL CONTINUE TO MONITOR PATIENT.
--- NOTE | 2019-05-08 20:22 | Progress Note ---
DATE: 05/08/2019 Medicine Progress Note SUBJECTIVE: The patient is doing well today with no complaints. He has been afebrile overnight. PHYSICAL EXAMINATION: VITAL SIGNS: Temperature is 97.4, T-max is 100, pulse is 81, respiratory rate is 19, blood pressure 138/63, and pulse ox 97% on room air. GENERAL: Not in acute distress. Alert and oriented x3. Cooperative on examination. HEENT: Head; normocephalic, atraumatic. Eyes; pupils are equal, round, and reactive to light bilaterally. Extraocular movements intact bilaterally. Throat; no evidence of erythema or exudates in the posterior pharynx. Has poor dentition. NECK: Supple. Good range of motion. PULMONARY: Clear to auscultation bilaterally. No wheezing, no rales, no rhonchi, no crackles appreciated. CARDIOVASCULAR: Positive S1 and S2. No murmurs, rubs, or gallops appreciated. ABDOMEN: Soft, nondistended, and nontender to palpation. Bowel sounds present. MUSCULOSKELETAL: Strength is 5/5 throughout. No evidence of any muscle deficits on examination. No weakness appreciated. NEUROLOGIC: Cranial nerves 2 through 12 grossly intact. No evidence of any neurological deficits on exam. SKIN: Intact. Warm to touch. Good cap refill. PSYCHIATRIC: Normal affect and mood. EXTREMITIES: No edema. Good range of motion throughout. LABORATORY DATA: Show white count is 4.8, hemoglobin is 7.6, hematocrit is 24.7, and platelets of 94. His chemistry; sodium was 135, his potassium is 4.6, his chloride is 108, his bicarbonate is 21, his BUN is 58, and his creatinine is 5.5. Hemoglobin A1c is pending. MICROBIOLOGY: Urine culture shows two gram-negative bacilli species and those shows Staphylococcus aureus. Blood cultures, no growth to date. Toe cultures were final negative. IMPRESSION: 1. Sepsis with underlying urinary tract infection with fever with suprapubic catheter exchange-Urology is following, his suprapubic catheter was exchanged, his urine cultures were positive for two gram-negative bacilli, pending final ID. Also shows evidence of Staphylococcus. Continue with IV antibiotics. Blood cultures no growth to date. ID consulted for management of the urinary tract infection. 2. Chronic kidney disease, stage 4 to 5, secondary to post obstruction nephropathy with type 1 diabetes-Nephrology consulted. Continue with sodium bicarbonate tablets. Renal dose home medications. 3. Type 1 diabetes-insulin sliding scale, Accu-Cheks, A1c, Endocrinology consulted. 4. Hypertension-currently stable, continue same plan of care. 5. Nutrition-renal diet. 6. PT/OT evaluation. 7. Heparin for deep venous thrombosis prophylaxis. 8. Consultants involved ID, Urology, Nephrology and Endocrinology. MD THOMAS Ramos/MODL /[id number]
[2019-05-08] MEDS: MEROPENEM 500MG/ NS 50ML 50 ML IV SCH (21:19)
[2019-05-09] VITALS (8 sets, daily range): BP systolic 114–135; BP diastolic 69–77
--- NOTE | 2019-05-09 00:22 | Consultation ---
DATE OF CONSULTATION: 05/08/2019 This is a patient of Dr. Vidal and Dr. Donald Potts. Thank you very much for referring this patient. HISTORY OF PRESENT ILLNESS: This is a 38-year-old gentleman, who was referred to me for evaluation of uncontrolled diabetes mellitus. The patient reportedly is a known diabetic for almost 12 years. He is a type 1 diabetic and is also taking Humalog 5 units with each meal. His other medical problems include history of end-stage renal failure with multiple comorbidities associated with diabetes mellitus. The patient came to the hospital with history of fever, urinary tract infection. He also has a history of hypertension. PHYSICAL EXAMINATION: GENERAL: Today, the patient is alert, awake, a little bit apprehensive. VITAL SIGNS: His heart rate is around 78, blood pressure 136/63 mmHg. HEENT: Essentially unremarkable. Thyroid is barely palpable. Clinically, he is near euthyroid. CHEST: Bilateral vesicular breathing. He has mild bronchospasm. CARDIOVASCULAR: First and second heart sounds. There is no 3rd or 4th heart sound. Ejection systolic murmur is grade 2/6. EXTREMITIES: The patient has evidence of diabetes, sensory neuropathy in both lower extremities. His blood sugars have been fluctuating between 150 to 250 range. Clinical impression and his bone creatinine are elevated at 58 and 5.50. CLINICAL IMPRESSION: Diabetes mellitus type 1, uncontrolled with complications, urinary tract infection, end-stage renal disease. PLAN: The plan at this time is to do a hemoglobin A1c, thyroid function test, adjust insulin dose and start him on the Lantus 5 units in the morning and Humalog with each meal. Thank you for referring this patient. I will be following this patient with you. MD MILES Franklin/MODL /[id number]
[2019-05-09] MEDS: MORPHINE SULFATE 2 MG/ML SYR 1ML IV PRN ×5 (01:59→21:13)
[2019-05-09] MEDS: ONDANSETRON HCL INJ 2MG/ML 2ML 2 MG/ML VIAL IV PRN ×5 (01:59→21:13)
[2019-05-09 05:45] LABS: BASOPHILS % 0.5 % (0.0-1.0); EOSINOPHILS # (AUTO) 0.1 (0.0-0.4); EOSINOPHILS % 1.5 % (0.0-6.0); HEMATOCRIT 26.1 % (38.2-49.6); HEMOGLOBIN 7.8 g/dL (14.0-18.0); LYMPHOCYTES % 23.5 % (18.0-39.1); MEAN CORPUSCULAR HEMOGLOBIN 25.7 pg (28-32); MEAN CORPUSCULAR HGB CONC 29.9 g/dL (31-35); MEAN CORPUSCULAR VOLUME 86.1 fL (81-99); MONOCYTES # (AUTO) 0.4 (0.2-0.8); MONOCYTES % 10.1 % (4.4-11.3); NEUTROPHILS # (AUTO) 2.6 (2.1-6.9); NEUTROPHILS % 64.2 % (38.7-80.0); PLATELET COUNT 102 x10e3/uL (140-360); RED BLOOD COUNT 3.03 x10e6/uL (4.3-5.7); RED CELL DISTRIBUTION WIDTH 15.1 % (11.7-14.4)
[2019-05-09 05:57] LABS: ANION GAP 10.5 mmol/L (8-16); CREATININE, SERUM 5.65 mg/dL (0.72-1.25); POTASSIUM 5.5 mmol/L (3.5-5.1)
[2019-05-09] MEDS ORDERED: INSULIN GLARGINE 100 UNITS/ML VIAL SQ SCH (06:00)
--- NOTE | 2019-05-09 07:06 | NUR ---
report given to day nurse. patient is resting comfortably in bed. bed is in lowest position and call light is within reach.
--- NOTE | 2019-05-09 07:10 | NUR ---
RCD PT AT BED PT IS ALERT AND ORIENTED PT RESTING ON BED IV PATENT BY SALINE FLUSH BED LOW AND LOCKED CALL LIGHT IN REACH
[2019-05-09] MEDS: INSULIN LISPRO 100 UNIT/1 ML 3ML VIAL SQ SCH ×7 (07:30→20:14)
[2019-05-09] MEDS: NIFEDIPINE CR 30 MG TAB PO SCH (09:00)
[2019-05-09] MEDS: SODIUM BICARBONATE 650 MG TAB PO SCH ×2 (09:00→16:14)
[2019-05-09] MEDS: HEPARIN SOD (PORCINE) 5,000 UNIT/ML VIAL SC SCH ×2 (09:00→20:50)
[2019-05-09] MEDS ORDERED: SOD POLYSTYRENE SULFONATE SUSP 15 GM/60 ML BTL PO NR (16:00)
--- NOTE | 2019-05-09 19:02 | NUR ---
PT RESTING ON BED BED SIDE REPORT GIVEN TO ONCOMING NURSE
--- NOTE | 2019-05-09 20:22 | Progress Note ---
DATE: 05/09/2019 Medicine Progress Note SUBJECTIVE: The patient is doing well today with no complaints. He is contemplating about hemodialysis. He wants to talk with the general labor tomorrow. PHYSICAL EXAMINATION: VITAL SIGNS: Temperature is 97.6, pulse 89, respiratory rate is 19, blood pressure 116/69, and pulse ox 100% on room air. GENERAL: Not in acute distress. Alert and oriented x3. Cooperative on examination. HEENT: Head; normocephalic, atraumatic. Eyes; pupils are equal, round, and reactive to light bilaterally. Extraocular movements intact bilaterally. Throat; no evidence of erythema or exudates in the posterior pharynx. Has poor dentition. NECK: Supple. Good range of motion. PULMONARY: Clear to auscultation bilaterally. No wheezing, no rales, no rhonchi, no crackles appreciated. CARDIOVASCULAR: Positive S1 and S2. No murmurs, rubs, or gallops appreciated. ABDOMEN: Soft, nondistended, and nontender to palpation. Bowel sounds present. MUSCULOSKELETAL: Strength is 5/5 throughout. No evidence of any muscle deficits on examination. No weakness appreciated. NEUROLOGIC: Cranial nerves 2 through 12 grossly intact. No evidence of any neurological deficits on exam. SKIN: Intact. Warm to touch. Good cap refill. PSYCHIATRIC: Normal affect and mood. EXTREMITIES: No edema. Good range of motion throughout. LABORATORY FINDINGS: Show white count 4.0, hemoglobin is 7.8, hematocrit is 26, and platelets of 102. Chemistry; sodium 134, potassium is 5.5, chloride 109, bicarb 20, anion gap of 10.5, BUN 64, creatinine is 5.65, glucose 103, and calcium is 7. LFTs within normal range. Urinalysis shows UTI. Urine culture shows E. coli. There is another gram-negative bacilli, species and Staph aureus species. Throat culture negative. Blood cultures are negative. IMPRESSION: 1. Sepsis secondary to urinary tract infection with fever with suprapubic catheter exchange-Urology is following, suprapubic catheter was exchanged. Urine cultures were noted, IV Merrem, ID is following closely. Blood cultures no growth to date. Continue following Urology and ID consultation recommendations. 2. Chronic kidney disease, stage 4-5, secondary to obstructive uropathy, nephropathy with type 1 diabetes-Nephrology consulted, the patient is in the discussion for possible hemodialysis. We will defer to Nephrology. 3. Type 1 diabetes, insulin sliding scale, Accu-Cheks, Endocrinology is following. 4. Hypertension, stable-continue same plan of care. 5. Nutrition-renal diet. 6. PT/OT evaluation. 7. Heparin for deep venous thrombosis prophylaxis. 8. Consultants involved ID, Urology, Nephrology, and Endocrinology. 9. Hyperkalemia-the patient was given Kayexalate 30 g p.o. x1 by Nephrology and he is being managed by Nephrology. MD THOMAS Ramos/MODL /[id number]
[2019-05-09] MEDS: MEROPENEM 500MG/ NS 50ML 50 ML IV SCH (20:50)
--- NOTE | 2019-05-09 20:50 | NUR ---
PATIENT IS IN STABLE CONDITION, NO SIGNS OF DISTRESS NOTED. IV ANTIBIOTICS ARE RUNNING AT ORDERED RATE AND PATIENT VOICES PAIN AT A LEVEL OF 9 AND WAS MEDICATED ORDERED. SUPRAPUBIC CATHETER IS INTACT AND IS PATENT AND FLOWING. BED IS IN LOW POSITION, BOTH SIDE RAILS ARE UP, CALL LIGHT IS WITHIN REACH, WILL CONTINUE TO MONITOR.
[2019-05-10] VITALS (9 sets, daily range): BP systolic 125–165; BP diastolic 60–90
[2019-05-10] MEDS: MORPHINE SULFATE 2 MG/ML SYR 1ML IV PRN ×4 (02:45→22:21)
[2019-05-10] MEDS: ONDANSETRON HCL INJ 2MG/ML 2ML 2 MG/ML VIAL IV PRN ×2 (02:45→06:10)
[2019-05-10 05:25] LABS: BASOPHILS % 0.3 % (0.0-1.0); EOSINOPHILS # (AUTO) 0.1 (0.0-0.4); EOSINOPHILS % 2.8 % (0.0-6.0); HEMATOCRIT 25.2 % (38.2-49.6); HEMOGLOBIN 7.8 g/dL (14.0-18.0); LYMPHOCYTES % 30.3 % (18.0-39.1); MEAN CORPUSCULAR HEMOGLOBIN 25.9 pg (28-32); MEAN CORPUSCULAR VOLUME 83.7 fL (81-99); MONOCYTES # (AUTO) 0.4 (0.2-0.8); MONOCYTES % 10.8 % (4.4-11.3); NEUTROPHILS # (AUTO) 1.8 (2.1-6.9); NEUTROPHILS % 55.8 % (38.7-80.0); PLATELET COUNT 133 x10e3/uL (140-360); RED BLOOD COUNT 3.01 x10e6/uL (4.3-5.7); RED CELL DISTRIBUTION WIDTH 14.6 % (11.7-14.4)
[2019-05-10 05:40] LABS: ANION GAP 13.8 mmol/L (8-16); CREATININE, SERUM 5.83 mg/dL (0.72-1.25); POTASSIUM 4.8 mmol/L (3.5-5.1)
[2019-05-10 05:58] LABS: CALCIUM 6.5 mg/dL (8.4-10.2)
--- NOTE | 2019-05-10 06:15 | NUR ---
PATIENT IS AWARE OF PROCEDURE TO BE DONE LATER ON TODAY AND WAS PREVIOUS TOLD TO BE NPO. CONSENT WAS SIGNED BY PATIENT AND VOICED UNDERSTANDING.
[2019-05-10] MEDS: INSULIN LISPRO 100 UNIT/1 ML 3ML VIAL SQ SCH ×7 (07:30→20:47)
--- NOTE | 2019-05-10 07:48 | NUR ---
Received patient, Sepsis, no Merrem, ID following, stage 4 CKD, Nephro following, Supra pubic cath in place to Barcenas, obstructive uropathy, Urology following, stents exchange today, NPO, calling attending for IV fluids, will monitor.
--- NOTE | 2019-05-10 08:30 | NUR ---
Patient picked up for procedure at this time
[2019-05-10] MEDS ORDERED: IOPAMIDOL 300MG/ML 50ML INFUS..BTL IV ONE (08:38)
[2019-05-10] MEDS ORDERED: B&O 60MG R/S 60 MG SUPP PR ONE (08:38)
--- NOTE | 2019-05-10 10:35 | NUR ---
Patient returned from having procedure at this time, transferred to bed, Right side stents exchanged, new S/P cath in place,
[2019-05-10] MEDS: NIFEDIPINE CR 30 MG TAB PO SCH (10:51)
[2019-05-10] MEDS: SODIUM BICARBONATE 650 MG TAB PO SCH ×2 (11:00→17:41)
[2019-05-10] MEDS ORDERED: PROPOFOL IV EMULSION 10 MG/ML 20 ML VIAL ONE (14:11)
[2019-05-10] MEDS ORDERED: LIDOCAINE HCL 2% LOCAL INJ 5 ML SDV VIAL INJ ONE (14:11)
[2019-05-10] MEDS ORDERED: ONDANSETRON HCL INJ 2MG/ML 2ML 2 MG/ML VIAL ONE (14:11)
[2019-05-10] MEDS ORDERED: LIDOCAINE HCL 2% JELLY 5 ML TUBE ONE (14:11)
[2019-05-10] MEDS ORDERED: DESFLURANE 240 ML BTL INH ONE (14:11)
[2019-05-10] MEDS ORDERED: FENTANYL CITRATE/PF 100MCG/2 ML INJ ONE (14:19)
[2019-05-10] MEDS ORDERED: MIDAZOLAM HCL 2 MG/2 ML VIAL ONE (14:19)
--- NOTE | 2019-05-10 19:05 | NUR ---
Received patient in bed with eyes open. Resp even and unlabored. No complaints at this time. Call light in reach. Bed in locked and low position.
--- NOTE | 2019-05-10 19:12 | NUR ---
CONSULT TO DR. HAHN CALLED BY SIDEHAND
--- NOTE | 2019-05-10 20:07 | Progress Note ---
DATE: 05/10/2019 Medicine Progress Note SUBJECTIVE: The patient is doing well today with no complaints. He did agree with a PD catheter placement by Nephrology, hopefully tomorrow by General surgery to be placed. PHYSICAL EXAMINATION: VITAL SIGNS: Temperature is 96.8, pulse is 78, respiratory rate is 20, blood pressure 139/81, and pulse ox 99% on room air. GENERAL: Not in acute distress. Alert and oriented x3. Cooperative on examination. HEENT: Head; normocephalic, atraumatic. Eyes; pupils are equal, round, and reactive to light bilaterally. Extraocular movements intact bilaterally. Throat; no evidence of erythema or exudates in the posterior pharynx. Has poor dentition. NECK: Supple. Good range of motion. PULMONARY: Clear to auscultation bilaterally. No wheezing, no rales, no rhonchi, no crackles appreciated. CARDIOVASCULAR: Positive S1 and S2. No murmurs, rubs, or gallops appreciated. ABDOMEN: Soft, nondistended, and nontender to palpation. Bowel sounds present. MUSCULOSKELETAL: Strength is 5/5 throughout. No evidence of any muscle deficits on examination. No weakness appreciated. NEUROLOGIC: Cranial nerves 2 through 12 grossly intact. No evidence of any neurological deficits on exam. SKIN: Intact. Warm to touch. Good cap refill. PSYCHIATRIC: Normal affect and mood. EXTREMITIES: No edema. Good range of motion throughout. LABORATORY FINDINGS: Show white count 3.2, hemoglobin 7.8, hematocrit is 25.2, and platelets of 133. Chemistry; sodium 137, potassium 4.8, chloride 109, bicarb 19, anion gap of 13, BUN 66, and creatinine is 5.83. A1c was 5.2. His calcium was 6.5. TSH is 1.6. Urinalysis noted. MICROBIOLOGY: Urine culture was E. coli, Stenotrophomonas maltophilia, and Staphylococcus aureus. Repeat urine culture is pending. IMPRESSION: 1. Sepsis secondary to urinary tract infection with fever with suprapubic catheter exchange-Urology is following. The patient underwent suprapubic catheter exchange today and a ureteral stent placement and cystoscopy performed today by Dr. Jalloh. Postoperatively, the patient is doing well. Continue with IV antibiotics with IV Merrem. Antibiotics are being managed by Infectious Disease. Blood cultures, no growth to date. Urology and ID are following. 2. Chronic kidney disease, stage 4-5, secondary to obstructive uropathy, nephropathy and underlying type 1 diabetes-discussed case with Nephrology. The patient agreed to PD catheter placement. General Surgery consulted for PD catheter placement. Continue to follow with Nephrology. I will replace his calcium with oral Tums. 3. Type 1 diabetes-Endocrinology is following. He is on a sliding scale. Monitor closely. 4. Hypertension-stable, continue same home medications, p.r.n. hydralazine. 5. Nutrition-renal diet. 6. PT/OT evaluation. 7. Heparin for deep venous thrombosis prophylaxis. 8. Consultants involved; ID, Urology, Nephrology, Endocrinology, and General Surgery. Otherwise, we will continue with same plan of care and monitor closely. MD THOMAS Ramos/MODL /[id number]
[2019-05-10] MEDS: MEROPENEM 500MG/ NS 50ML 50 ML IV SCH (21:33)
[2019-05-10] MEDS: CALCIUM CARBONATE 500 MG CHEWABLE TABS PO SCH (21:33)
[2019-05-10] MEDS: EPOETIN ALFA-EPBX 10,000 UNIT/ML VIAL SC SCH (22:00)
[2019-05-11] VITALS (8 sets, daily range): BP systolic 120–140; BP diastolic 67–79
[2019-05-11] MEDS: MORPHINE SULFATE 2 MG/ML SYR 1ML IV PRN ×4 (03:02→21:58)
[2019-05-11] MEDS: ONDANSETRON HCL INJ 2MG/ML 2ML 2 MG/ML VIAL IV PRN ×3 (03:03→18:25)
[2019-05-11 05:23] LABS: BASOPHILS % 0.5 % (0.0-1.0); EOSINOPHILS # (AUTO) 0.1 (0.0-0.4); EOSINOPHILS % 2.7 % (0.0-6.0); HEMATOCRIT 24.8 % (38.2-49.6); HEMOGLOBIN 7.7 g/dL (14.0-18.0); LYMPHOCYTES % 25.8 % (18.0-39.1); MEAN CORPUSCULAR HEMOGLOBIN 25.9 pg (28-32); MEAN CORPUSCULAR VOLUME 83.5 fL (81-99); MONOCYTES # (AUTO) 0.4 (0.2-0.8); MONOCYTES % 9.4 % (4.4-11.3); NEUTROPHILS # (AUTO) 2.3 (2.1-6.9); NEUTROPHILS % 61.3 % (38.7-80.0); PLATELET COUNT 149 x10e3/uL (140-360); RED BLOOD COUNT 2.97 x10e6/uL (4.3-5.7); RED CELL DISTRIBUTION WIDTH 14.6 % (11.7-14.4)
[2019-05-11 05:41] LABS: ANION GAP 13.2 mmol/L (8-16); CREATININE, SERUM 5.35 mg/dL (0.72-1.25); PHOSPHORUS 6.2 MG/DL (2.3-4.7); POTASSIUM 5.2 mmol/L (3.5-5.1)
[2019-05-11 05:50] LABS: CALCIUM 6.5 mg/dL (8.4-10.2)
--- NOTE | 2019-05-11 06:03 | NUR ---
received Critcal calcium level of 6.5. Left message for Dr. Chau to return call
[2019-05-11 06:05] LABS: FERRITIN 313.92 ng/mL (21.81-274.66)
--- NOTE | 2019-05-11 06:10 | NUR ---
Received call from Dr. Chau regarding critical value. No new orders at this time
[2019-05-11] MEDS: INSULIN LISPRO 100 UNIT/1 ML 3ML VIAL SQ SCH ×7 (07:30→21:00)
[2019-05-11] MEDS: NIFEDIPINE CR 30 MG TAB PO SCH (08:46)
[2019-05-11] MEDS: CALCIUM CARBONATE 500 MG CHEWABLE TABS PO SCH (08:46)
[2019-05-11] MEDS: SODIUM BICARBONATE 650 MG TAB PO SCH ×2 (08:46→17:44)
--- NOTE | 2019-05-11 08:59 | NUR ---
Patient a/ox3, in bed, Barcenas draining clear/ yellow urine, medicated for pain and call light within reach.
[2019-05-11] MEDS: SODIUM FERRIC GLUCONATE COMPLX 125 MG in SODIUM CHLORIDE 0.9% 100 ML 100 ML IV SCH (09:00)
[2019-05-11] MEDS ORDERED: CEFAZOLIN SOD 1 GM/NS 50ML 50 ML IV SCH (10:00)
--- NOTE | 2019-05-11 14:32 | NUR ---
Patient's blood sugar dropped to 46, hypoglycemic symptoms and offered OJx2 and cranberry juice x1 with crackers.
--- NOTE | 2019-05-11 18:18 | NUR ---
Rounds at this time with Dr. Berry regarding consult for peritoneal dialysis catheter
--- NOTE | 2019-05-11 19:00 | NUR ---
RECEIVED PATIENT IN BEDSIDE SHIFT REPORT. PATIENT A&OX4. PAIN REPORTED 04/04. NO S&S OF DISTRESS NOTED. SUPRAPUBIC CATHETER NOTED, NO DRAINAGE FROM SITE NOTED, CLEAR, YELLOW URINE NOTED, BAG HANGING ON SIDE OF BED, OFF OF FLOOR. BED LOCKED IN LOWEST POSITION, SIDE RAILS UPX2, CALL LIGHT IN REACH.
[2019-05-11] MEDS: EPOETIN ALFA-EPBX 10,000 UNIT/ML VIAL SC SCH (19:09)
--- NOTE | 2019-05-11 19:09 | NUR ---
Noted epogen was not pulled from xis, patient denies receiving epogen yesterday, administered at this time
--- NOTE | 2019-05-11 20:05 | Progress Note ---
DATE: 05/11/2019 Medicine Progress Note SUBJECTIVE: The patient is doing well today with no complaints. He is scheduled for PD catheter placement tomorrow by General Surgery. PHYSICAL EXAMINATION: VITAL SIGNS: Temperature 96.6, pulse 80, respiratory rate is 18, blood pressure 120/71, and pulse ox 97% on room air. GENERAL: Not in acute distress. Alert and oriented x3. Cooperative on examination. HEENT: Head; normocephalic, atraumatic. Eyes; pupils are equal, round, and reactive to light bilaterally. Extraocular movements intact bilaterally. Throat; no evidence of erythema or exudates in the posterior pharynx. Has poor dentition. NECK: Supple. Good range of motion. PULMONARY: Clear to auscultation bilaterally. No wheezing, no rales, no rhonchi, no crackles appreciated. CARDIOVASCULAR: Positive S1 and S2. No murmurs, rubs, or gallops appreciated. ABDOMEN: Soft, nondistended, and nontender to palpation. Bowel sounds present. MUSCULOSKELETAL: Strength is 5/5 throughout. No evidence of any muscle deficits on examination. No weakness appreciated. NEUROLOGIC: Cranial nerves 2 through 12 grossly intact. No evidence of any neurological deficits on exam. SKIN: Intact. Warm to touch. Good cap refill. PSYCHIATRIC: Normal affect and mood. EXTREMITIES: No edema. Good range of motion throughout. LABORATORY FINDINGS: Show white count 3.7, hemoglobin 7.7, hematocrit is 24.8, and platelets of 149. Chemistry; sodium was 137, potassium 5.2, chloride 109, bicarb 20, anion gap of 13, BUN is 59, and creatinine is 5.3. His calcium is 6.5 and phosphorus is 6.2. His iron saturation 23%. MICROBIOLOGY,: Urine culture shows E. coli Stenotrophomonas and Staphylococcus aureus. Blood cultures were negative. Throat cultures were negative. Repeat urine cultures were negative. Antibiotics are being managed by Infectious Disease. IMPRESSION: 1. Sepsis secondary to urinary tract infection with fever with suprapubic catheter exchange-Urology is following. He had a suprapubic catheter exchanged on 05/10/2019, by Urology. He also had a ureteral stent placement and cystoscopy performed by Dr. Jalloh. He did well postoperatively. Continue with IV antibiotics with IV Merrem. He is being managed by Infectious Disease, Dr. Blum. Blood cultures, no growth to date. Repeat urine cultures were negative. Urology and ID are following. 2. Chronic kidney disease, stage 4-5, secondary to obstructive uropathy, nephropathy, and type 1 diabetes-Nephrology following. He agreed to PD catheter placement tomorrow, in which General Surgery has been consulted. 3. Type 1 diabetes-Endocrinology following. He is on a sliding scale as well as other insulins as per Endocrinology. 4. Hypertension-stable, continue same home medications, p.r.n. hydralazine. 5. Nutrition: Renal diet. 6. PT/OT evaluation, encourage ambulation. 7. Heparin for deep venous thrombosis prophylaxis. 8. Consultants: ID, Urology, Nephrology, Endocrinology, and General Surgery. Dr. Potts will be available tomorrow to continue to follow on this patient's care. MD THOMAS Ramos/MODL /[id number]
--- NOTE | 2019-05-11 21:55 | NUR ---
CONSENT FOR LAPAROSCOPIC PLACEMENT OF PERITONEAL DIALYSIS CATHETER CONSENT SIGNED AT THIS TIME.
--- NOTE | 2019-05-11 22:27 | NUR ---
REFUSAL TO PERMIT THE USE OF BLOOD AND/OR BLOOD COMPONENTS FORM FILLED OUT AT THIS TIME, WITNESS: PRUDENCE KHAN.
[2019-05-12] VITALS (8 sets, daily range): BP systolic 128–150; BP diastolic 77–88
[2019-05-12] MEDS: MORPHINE SULFATE 2 MG/ML SYR 1ML IV PRN ×5 (01:45→23:34)
[2019-05-12 05:24] LABS: BASOPHILS % 0.6 % (0.0-1.0); EOSINOPHILS # (AUTO) 0.1 (0.0-0.4); EOSINOPHILS % 3.6 % (0.0-6.0); HEMATOCRIT 26.9 % (38.2-49.6); HEMOGLOBIN 8.3 g/dL (14.0-18.0); LYMPHOCYTES % 30.2 % (18.0-39.1); MEAN CORPUSCULAR HEMOGLOBIN 25.6 pg (28-32); MEAN CORPUSCULAR HGB CONC 30.9 g/dL (31-35); MONOCYTES # (AUTO) 0.3 (0.2-0.8); MONOCYTES % 10.3 % (4.4-11.3); NEUTROPHILS # (AUTO) 1.8 (2.1-6.9); NEUTROPHILS % 54.7 % (38.7-80.0); PLATELET COUNT 121 x10e3/uL (140-360); RED BLOOD COUNT 3.24 x10e6/uL (4.3-5.7); RED CELL DISTRIBUTION WIDTH 14.3 % (11.7-14.4)
[2019-05-12 05:44] LABS: ALBUMIN 2.2 g/dL (3.5-5.0); ALBUMIN/GLOBULIN RATIO 0.4 (0.8-2.0); ANION GAP 13.3 mmol/L (8-16); CREATININE, SERUM 5.1 mg/dL (0.72-1.25); POTASSIUM 5.3 mmol/L (3.5-5.1)
[2019-05-12 05:45] LABS: CALCIUM 6.6 mg/dL (8.4-10.2)
[2019-05-12] MEDS: INSULIN GLARGINE 100 UNITS/ML VIAL SQ SCH (05:48)
[2019-05-12] MEDS: ONDANSETRON HCL INJ 2MG/ML 2ML 2 MG/ML VIAL IV PRN ×4 (05:55→23:34)
--- NOTE | 2019-05-12 06:39 | NUR ---
PAGEOmayra OLSON ASSOUD CONCERNING PATIENT'S CRITICAL LAB, CALCIUM, 6.6. AWAITING CALL BACK.
[2019-05-12] MEDS: INSULIN LISPRO 100 UNIT/1 ML 3ML VIAL SQ SCH ×7 (07:30→21:00)
[2019-05-12] MEDS ORDERED: CALCIUM GLUCONATE 10% INJ 9.3 MEQ in SODIUM CHLORIDE 0.9% 100 ML 100 ML IV ONE (07:45)
[2019-05-12] MEDS: NIFEDIPINE CR 30 MG TAB PO SCH (08:35)
[2019-05-12] MEDS: OYST-CAL-D 500MG TABLET PO SCH ×3 (09:00→21:50)
[2019-05-12] MEDS: SODIUM BICARBONATE 650 MG TAB PO SCH ×2 (09:00→16:49)
[2019-05-12] MEDS: FLUCONAZOLE 100 MG TAB PO SCH (09:45)
--- NOTE | 2019-05-12 10:22 | NUR ---
PT SIGNED CHOICE FOR [facility] FILED IN CHART. LET NURSE KNOW THAT I NEED HEP PANEL FOR DIALYSIS SET UP WHEN GET THAT WILL BE ABLE TO FAX TO [facility] [phone]
[2019-05-12] MEDS ORDERED: CEFTAZIDIME 1 GM VIAL IV SCH ×2 (10:45→11:00)
[2019-05-12] MEDS ORDERED: CEFTAZIDIME 1 GM VIAL IV ONE ×2 (11:00)
[2019-05-12] MEDS: SODIUM FERRIC GLUCONATE COMPLX 125 MG in SODIUM CHLORIDE 0.9% 100 ML 100 ML IV SCH (12:28)
[2019-05-12] MEDS ORDERED: CEFTAZIDIME SOD 2 GM/NS 100ML 100 ML IV ONE (12:30)
[2019-05-12] MEDS ORDERED: LIDOCAINE 1% W/EPINEPHRINE 20 ML VIAL ONE (12:36)
[2019-05-12] MEDS ORDERED: HEPARIN SOD (PORCINE) 1000 UNIT/ML SDV ONE (12:36)
[2019-05-12] MEDS ORDERED: BUPIVACAINE 0.25% 30ML SDV INJ ONE (12:36)
[2019-05-12] MEDS ORDERED: SODIUM CHLORIDE 0.9% 250ML 0 ML ONE (12:36)
[2019-05-12] MEDS ORDERED: MIDAZOLAM HCL 2 MG/2 ML VIAL ONE (12:57)
[2019-05-12] MEDS ORDERED: FENTANYL CITRATE/PF 100MCG/2 ML INJ ONE (12:57)
[2019-05-12] MEDS ORDERED: SODIUM CHLORIDE 0.9% 500ML 500 ML ONE (13:25)
--- NOTE | 2019-05-12 14:00 | NUR ---
Dr. Winters is making rounds, she gave clearance for patient to have a central line.
[2019-05-12] MEDS ORDERED: ONDANSETRON HCL INJ 2MG/ML 2ML 2 MG/ML VIAL ONE (14:07)
[2019-05-12] MEDS ORDERED: ROCURONIUM BROMIDE 10 MG/ML 5ML VIAL ONE (14:07)
[2019-05-12] MEDS ORDERED: GLYCOPYRROLATE INJ 0.2 MG/ML VIAL ONE (14:07)
[2019-05-12] MEDS ORDERED: NEOSTIGMINE 1 MG/ML 10ML VIAL ONE (14:07)
[2019-05-12] MEDS ORDERED: PROPOFOL IV EMULSION 10 MG/ML 20 ML VIAL ONE (14:07)
[2019-05-12] MEDS ORDERED: SEVOFLURANE INHAL SOLN 250 ML PEN BTL ONE (14:07)
[2019-05-12] MEDS ORDERED: DEXAMETHASONE SOD PHOS INJ 4 MG/ML VIAL ONE (14:07)
[2019-05-12] MEDS ORDERED: LIDOCAINE HCL 2% LOCAL INJ 5 ML SDV VIAL INJ ONE (14:07)
[2019-05-12] MEDS ORDERED: HYDROCODONE/APAP 7.5MG-325MG 1 EA TAB PO PRN (15:00)
--- NOTE | 2019-05-12 15:24 | Operative Report ---
DATE OF PROCEDURE: 05/12/2019 SURGEON: Jamal Fitzgerald MD PREOPERATIVE DIAGNOSIS: Chronic renal failure, needed dialysis. POSTOPERATIVE DIAGNOSIS: Chronic renal failure, needed dialysis. OPERATION PERFORMED: Laparoscopic placement of peritoneal dialysis catheter. NEEDLE LOOM WEAVER: GABBI Alonso. ANESTHESIA: General. COMPLICATIONS: None. ESTIMATED BLOOD LOSS: Minimal. DESCRIPTION OF PROCEDURE: With the patient lying in bed in the supine position under good general anesthesia, the abdomen was prepped with Betadine solution and draped in the usual manner. A Veress needle was introduced into the right mid abdomen and pneumoperitoneum was established without any difficulty. A 5 mm trocar was then placed into the right upper quadrant. A 5 mm video laparoscope was placed into the intra-abdominal cavity. There were no adhesions to the subumbilical area from the patient's previous surgeries and the pelvis was also free of any adhesions. A small incision was then made in the subumbilical space and incision was carried down to the midline fascia. The midline fascia was opened. The peritoneum was opened and the abdomen was entered. The peritoneal dialysis catheter was then placed through this incision down into the pelvis and using the scope, the tip of the coiled catheter was easily placed into the pelvic area without any problems. After this was done, the pneumoperitoneum was evacuated and the catheter was then threaded all the way to the right mid abdominal incision where the trocar had been without any difficulty, leaving one of the felt nodules in a subfascial plane and the other one in the subcutaneous space. The catheter was then sutured to the skin with a 2-0 silk suture. The wound was then closed in layers. The peritoneum was closed with a running suture of #1 Vicryl. The midline fascia was closed with running suture of 2-0 Vicryl. Subcutaneous tissue was approximated with 3-0 Vicryl and the skin was closed with subcuticular 5-0 Vicryl. Benzoin, Steri-,Strips and dressings were applied. The sponge, lap, and needle count was correct. The patient tolerated the procedure well and returned to the recovery room in stable condition. MD JACKIE MartinR/MODL /[id number]
--- NOTE | 2019-05-12 16:28 | NUR ---
Nutrition Screen Note RD Recommendation for Physician: - Recommended advancing to renal diabetic diet when medically appropriate Plan of Care: RD following, monitoring for tolerance and adequacy Nutrition reason for involvement: follow up Primary Diagnose(s): End Stage Renal Failure PMH: 1. Chronic kidney disease, stage 4. 2. Type 2 diabetes mellitus. 3. Hypertension. 5. Anemia of chronic disease. Ht: 71in Wt: 220 lbs 216.44lb (05/06) BMI: 30.7kg/m2 IBW: 172lb +/- 10% RD Assessment: (05/11) Follow up. Pt is NPO for a procedure PD catheter placement. Pt was not available at time of visit. It is recorded that pt consumed 100% of his meals yesterday. Will continue to monitor. (05/06) Chart reviewed. Labs and meds reviewed. 38yo M, who was admitted for end stage renal failure. K has trend down from 5.5 to 5.0. No phosphorus lab. Pt was well known to me from his recent admissions. 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 Pt denied chewing/swallowing problems. Pt reported of some nausea/ vomiting and was given Zofran. At this time, it is unknown that if pt need outpatient HD treatment. Pt wants to get on the kidney/ pancreas transplant list. RD offered diet education but pt was not interested. Will continue to monitor and follow. Current Diet: NPO Malnutrition Evaluation (05/06) The patient does not meet criteria for a specified degree of malnutrition at this time. Will re-evaluate at follow-up as appropriate. Diet Education Needs Assessment: Diet education indicated but pt refused during 05/06 assessment- Handouts and diet instruction were given during his last visit in 09/2018. Nutrition Care Level: low Signed: Linda Ramírez, RD, LD
--- NOTE | 2019-05-12 16:29 | NUR ---
PT IS ACCEPTED TO [facility] LETTER IN CHART AND GIVEN TO PT IN ROOM
[2019-05-12] MEDS ORDERED: CEFAZOLIN SOD 1 GM/NS 50ML 50 ML IV SCH (18:00)
--- NOTE | 2019-05-12 19:00 | NUR ---
RECEIVED PATIENT IN BEDSIDE SHIFT REPORT. PATIENT SITTING UP IN BED AT THIS TIME. PAIN 9/10, WILL MEDICATE. PATIENT IS A&OX3. NO DROWSINESS FROM PROCEDURE NOTED. SUPRAPUBIC CATHETER DRAINING CLEAR, YELLOW URINE TO GRAVITY, INSERTION SITE IS C/D/I, NO DRAINAGE NOTED, SURROUNDING SKIN NORMAL. SURGICAL DRESSING S/P PERITONEAL DIALYSIS CATHETER INSERTION IS C/D/I. NO DRAINAGE NOTED. SURROUNDING SKIN NORMAL. R WRIST 20 G ASYMPTOMATIC, INTACT, AND PATENT. BED LOCKED IN LOWEST POSITION, SIDE RAILS UPX2, CALL LIGHT IN REACH.
--- NOTE | 2019-05-12 19:24 | NUR ---
Notified the patient that nephrology said it was OK for him to have a central line to received IV antibiotics outpatient- patient stated, " I want to hold off on the central line for now".
[2019-05-13] VITALS (8 sets, daily range): BP systolic 129–149; BP diastolic 81–96
[2019-05-13] MEDS: ONDANSETRON HCL INJ 2MG/ML 2ML 2 MG/ML VIAL IV PRN ×3 (04:41→19:47)
[2019-05-13] MEDS: MORPHINE SULFATE 2 MG/ML SYR 1ML IV PRN ×4 (04:41→19:47)
[2019-05-13] MEDS: INSULIN GLARGINE 100 UNITS/ML VIAL SQ SCH ×2 (06:00→21:00)
[2019-05-13] MEDS: OYST-CAL-D 500MG TABLET PO SCH ×3 (08:33→22:15)
[2019-05-13] MEDS: FLUCONAZOLE 100 MG TAB PO SCH (08:33)
[2019-05-13] MEDS: SODIUM BICARBONATE 650 MG TAB PO SCH ×2 (08:40→17:36)
[2019-05-13] MEDS: NIFEDIPINE CR 30 MG TAB PO SCH (08:51)
[2019-05-13] MEDS: INSULIN LISPRO 100 UNIT/1 ML 3ML VIAL SQ SCH ×5 (08:52→20:44)
[2019-05-13] MEDS: SODIUM FERRIC GLUCONATE COMPLX 125 MG in SODIUM CHLORIDE 0.9% 100 ML 100 ML IV SCH (09:00)
[2019-05-13 10:06] LABS: ANION GAP 14.3 mmol/L (8-16); CREATININE, SERUM 5.08 mg/dL (0.72-1.25); POTASSIUM 5.3 mmol/L (3.5-5.1)
--- NOTE | 2019-05-13 10:30 | NUR ---
IV abx set up in Dr. Blum's office. Pending dc date. Per nursing report, pt is refusing central/mid line. Dr. Blum to talk to pt / make recommendations when he rounds.
[2019-05-13] MEDS ORDERED: SOD POLYSTYRENE SULFONATE SUSP 15 GM/60 ML BTL PO ONE (15:00)
--- NOTE | 2019-05-13 19:00 | NUR ---
RECEIVED PATIENT IN BEDSIDE SHIFT REPORT. PATIENT RESTING IN BED AT THIS TIME. PAIN 09/01, WILL MEDICATE. SUPRAPUBIC CATHETER DRAINING CLEAR, YELLOW URINE. INSERTION SITE C/D/I. SURGICAL DRESSINGS TO ABD C/D/I, NO DRAINAGE NOTED. NO S&S OF DISTRESS NOTED. R WRIST 20G ASYMPTOMATIC, INTACT, AND PATENT. BED LOCKED IN LOWEST POSITION, SIDE RAILS UPX2, CALL LIGHT IN REACH.
[2019-05-13] MEDS ORDERED: INSULIN LISPRO 100 UNIT/1 ML 3ML VIAL SQ SCH (21:00)
[2019-05-14] VITALS (8 sets, daily range): BP systolic 112–161; BP diastolic 74–94
[2019-05-14] MEDS: ONDANSETRON HCL INJ 2MG/ML 2ML 2 MG/ML VIAL IV PRN ×4 (00:35→18:21)
[2019-05-14] MEDS: HYDROMORPHONE 1MG/1ML INJ IV PRN ×7 (00:35→22:03)
[2019-05-14 06:33] LABS: ANION GAP 14.4 mmol/L (8-16); CALCIUM 7.5 mg/dL (8.4-10.2); CREATININE, SERUM 4.89 mg/dL (0.72-1.25); POTASSIUM 5.4 mmol/L (3.5-5.1)
--- NOTE | 2019-05-14 07:00 | NUR ---
BEDSIDE SHIFT REPORT RECEIVED FROM [employer] EDUCATOR NURSE. PT DENIES NEEDS AT THIS TIME.
[2019-05-14] MEDS: INSULIN LISPRO 100 UNIT/1 ML 3ML VIAL SQ SCH ×8 (07:30→21:00)
[2019-05-14] MEDS: OYST-CAL-D 500MG TABLET PO SCH ×3 (08:12→21:48)
[2019-05-14] MEDS: FLUCONAZOLE 100 MG TAB PO SCH (08:12)
[2019-05-14] MEDS: SODIUM BICARBONATE 650 MG TAB PO SCH ×2 (08:12→18:21)
[2019-05-14] MEDS: NIFEDIPINE CR 30 MG TAB PO SCH (08:12)
[2019-05-14] MEDS: SODIUM FERRIC GLUCONATE COMPLX 125 MG in SODIUM CHLORIDE 0.9% 100 ML 100 ML IV SCH (11:31)
[2019-05-14] MEDS ORDERED: SOD POLYSTYRENE SULFONATE SUSP 15 GM/60 ML BTL PO NR (18:00)
--- NOTE | 2019-05-14 18:58 | NUR ---
RECEIVED REPORT FROM DAY RN. PT RESTING IN BED IN SEMI-FOWLERS POSITION. PT IS ALERT AND ORIENTED X3. RESPIRATIONS ARE REVEN AND UNLABORED. PERITONEAL CATHETER INTACT. SUPRAPUBIC CATHETER TO GRAVITY. CATHTER PATENT DRAINING CLEAR YELLOW URINE WITH YELLOW SEDIMENT AT TIMES. PT REPORTS BM TONIGHT. 20G SL IN RT WRIST- SITE HEALTHY. PT USING ARM CRUTCHES TO AMBULATE TO BATHROOM. ENCOURAGED PT TO CALL FOR 1 ASSIST DURING NIGHT. NONSKID SOCKS GIVEN TO PT. OFFERED TO PUT ON SOCKS PT REFUSED. CALL LIGHT WITHIN REACH. BED AIR MATTRESS IN USE - IN LOW POSITION. PT DENIES PAIN.
[2019-05-14] MEDS: INSULIN GLARGINE 100 UNITS/ML VIAL SQ SCH (21:47)
[2019-05-15] VITALS (8 sets, daily range): BP systolic 124–149; BP diastolic 79–98
[2019-05-15] MEDS: ONDANSETRON HCL INJ 2MG/ML 2ML 2 MG/ML VIAL IV PRN ×5 (01:41→22:13)
[2019-05-15] MEDS: HYDROMORPHONE 1MG/1ML INJ IV PRN ×5 (02:00→22:57)
--- NOTE | 2019-05-15 06:35 | NUR ---
PT HAD EMESIS. ZOFRAN GIVEN. PT REPORT PAIN IN ABDOMEN - PERITONEAL CATH . DILAUDID GIVEN ORDERED. WILL MONITOR FOR PAIN RELEIF.
--- NOTE | 2019-05-15 07:00 | NUR ---
BEDSIDE SHIFT REPORT RECEIVED FROM OUTREACH CLINICIAN NURSE. PT DENIES NEEDS AT THIS TIME.
[2019-05-15] MEDS: INSULIN LISPRO 100 UNIT/1 ML 3ML VIAL SQ SCH ×7 (07:30→21:00)
[2019-05-15] MEDS: SODIUM BICARBONATE 650 MG TAB PO SCH ×2 (09:05→17:46)
[2019-05-15] MEDS: OYST-CAL-D 500MG TABLET PO SCH ×3 (09:05→21:00)
[2019-05-15] MEDS: NIFEDIPINE CR 30 MG TAB PO SCH (09:05)
[2019-05-15] MEDS: FLUCONAZOLE 100 MG TAB PO SCH (09:05)
[2019-05-15] MEDS: CEFTAZIDIME SOD 2 GM/NS 100ML 100 ML IV SCH (11:33)
--- NOTE | 2019-05-15 19:05 | NUR ---
BEDSIDE SHIFT REPORT RECEIVED FROM DAY RN. PT IS ALERT AND ORIENTED X3. RESPIRATIONS ARE EVEN AND UNLABORED. PERITONEAL DIALYSIS CATHETER INTACT. SUPRAPUBIC CATHETER INTACT AND DRAINING CLEAR YELLOW URINE WITH YELLOW SEDIMENT. SL 20 G IN RT WRIST. PT DENIES PAIN. CALL LIGHT WITHIN REACH. BED LOCKED AND IN LOW POSITION. PT TO HAVE CENTRAL LINE PLACEMENT IN AM- WILL BE NPO AFTER MIDNIGHT.
[2019-05-15] MEDS: INSULIN GLARGINE 100 UNITS/ML VIAL SQ SCH (21:00)
[2019-05-16] VITALS (9 sets, daily range): BP systolic 148–176; BP diastolic 86–94
[2019-05-16] MEDS: ONDANSETRON HCL INJ 2MG/ML 2ML 2 MG/ML VIAL IV PRN ×4 (04:10→22:00)
[2019-05-16] MEDS: HYDROMORPHONE 1MG/1ML INJ IV PRN ×4 (04:15→22:00)
[2019-05-16 05:47] LABS: ANION GAP 15.4 mmol/L (8-16); CALCIUM 8.1 mg/dL (8.4-10.2); CREATININE, SERUM 4.64 mg/dL (0.72-1.25); POTASSIUM 5.4 mmol/L (3.5-5.1)
--- NOTE | 2019-05-16 07:07 | NUR ---
BEDSIDE SHIFT REPORT RECEIVED FROM FIELD SALES ASSOCIATE RN; PT IN STABLE CONDITION.
[2019-05-16] MEDS: INSULIN LISPRO 100 UNIT/1 ML 3ML VIAL SQ SCH ×7 (07:30→21:00)
--- NOTE | 2019-05-16 08:40 | NUR ---
SPOKE WITH DR LLOYD AT PT'S BEDSIDE REGARDING HIGH POTASSIUM AND ORDER FOR CATH PLACEMENT. DR LLOYD STATES PT NEEDS KAEXYLATE AND IN NEED OF DIALYSIS. WILL CLARIFY ORDER FOR CATH PLACEMENT WITH RADIOLOGIST.
[2019-05-16 08:44] LABS: ALBUMIN 2.5 g/dL (3.5-5.0); BILIRUBIN,DIRECT 0.1 mg/dL (0.0-0.5)
[2019-05-16] MEDS: SODIUM BICARBONATE 650 MG TAB PO SCH ×2 (09:00→17:00)
[2019-05-16] MEDS: OYST-CAL-D 500MG TABLET PO SCH ×3 (09:00→21:21)
[2019-05-16] MEDS ORDERED: CEFTAZIDIME 1 GM VIAL IV SCH (09:00)
[2019-05-16] MEDS ORDERED: SOD POLYSTYRENE SULFONATE SUSP 15 GM/60 ML BTL PO ONE (09:50)
[2019-05-16] MEDS ORDERED: SODIUM CHLORIDE 0.9% 250ML 250 ML ONE ×2 (10:19→11:59)
[2019-05-16] MEDS: PROMETHAZINE 12.5MG/ NACL 0.9% 12.5 MG/50 ML BAG IV PRN ×2 (10:21→17:31)
[2019-05-16 10:36] LABS: INR 1.22; PROTHROMBIN TIME 16.2 seconds (11.9-14.5)
[2019-05-16] MEDS ORDERED: LIDOCAINE HCL 1% LOCAL INJ 20 ML VIAL ONE (11:59)
--- NOTE | 2019-05-16 12:18 | NUR ---
pt being taken to Radiology for procedure. pt awake, alert, transferred easily to wheelchair for transfer. left in stable condition.
[2019-05-16] MEDS ORDERED: FENTANYL CITRATE/PF 100MCG/2 ML INJ ONE (12:28)
[2019-05-16] MEDS ORDERED: MIDAZOLAM HCL 2 MG/2 ML VIAL ONE (12:28)
[2019-05-16] MEDS ORDERED: HEPARIN SOD (PORCINE) 1000 UNIT/ML SDV ONE (12:48)
--- NOTE | 2019-05-16 13:36 | NUR ---
pt back on the floor, arrived via wheelchair. pt had hemodialysis catheter placed, 14.5 Kyrgyz, 18 cm long. Pt received Fentanyl and Versed; also had Abd series done while off unit. pt awake, alert, oriented, arrived in stable condition.
--- NOTE | 2019-05-16 13:46 | Diagnostic Imaging Report ---
Tunneled dialysis catheter insertion, 05/16/2019. History: Renal failure. Modality: Sonography and fluoroscopy. Sedation: Versed 1.0 mg and fentanyl 50 mcg was given intravenously for conscious sedation. Vital signs were monitored throughout the procedure by a nurse, and remained stable. Physician intra-service time was 15 its. Flight Hostess: Saloni. Policyholder Information Clerk: None. Approach: Right internal jugular vein Estimated blood loss: < 5 cc. Specimen: None. Fluoroscopy Time: 0 point min. Dose (Ka,r): 0.26 mGy. Technique: Informed written consent was obtained. Discussion of risks, benefits, and alternatives were made with the patient. The patient expressed understanding and agreed to proceed. All elements maximal sterile barrier technique was utilized for this procedure, including utilization of sterile scrub solution for skin prep, a large sterile sheet to cover the areas of the patient that were not prepped, and hand hygiene, mask, head covering, and sterile gown for performing radiologist and scrub technologist. The skin was anesthetized with 2% lidocaine.Ultrasound evaluation showed a patent and compressible right internal jugular vein, which was punctured under direct real-time ultrasound guidance with a micropuncture needle. An ultrasound image was saved to PACS. A 0.018 inch wire was placed through the needle into the right atrium. A 4 Mosotho micropuncture sheath was placed. A subcutaneous tunnel was created in the right anterior chest wall by blunt dissection. A 19 cm 14.5 Mosotho dialysis catheter was brought through the tunnel. The vessel tract was serially dilated over a J-wire. A peel-away sheath was placed in the right IJ vein and the catheter was advanced through the sheath, with its distal tip terminating in the right atrium. The peel-away sheath was removed. The ports were flushed and aspirated easily following placement. The catheter was sutured to the skin with 2-0 silk to secure its placement. The small jugular incision site was closed using resorbable suture. Vital signs were monitored throughout the procedure by a nurse, and remained stable. The patient tolerated the procedure well and left the department in the same condition. Results: Spot radiograph of the chest demonstrates the new dialysis catheter to lie in the expected position with its tip overlying the superior right atrium. Impression: Successful, uncomplicated placement of a right internal jugular tunneled dialysis catheter using sonographic and fluoroscopic guidance and conscious sedation. Signed by: Ronnie Guallpa MD on 05/16/2019 1:43 PM
--- NOTE | 2019-05-16 13:48 | Diagnostic Imaging Report ---
Abdominal radiograph Clinical indications: Nausea vomiting Comparison: 2018 Impression: The bowel gas pattern is nonobstructive. Right ureteral double J stent is in place. A peritoneal dialysis catheter is in place. No evidence of free intraperitoneal air. Signed by: Ronnie Guallpa MD on 05/16/2019 1:45 PM
[2019-05-16] MEDS: CEFTAZIDIME SOD 2 GM/NS 100ML 100 ML IV SCH (14:38)
[2019-05-16] MEDS: METOCLOPRAMIDE HCL 10 MG TAB PO SCH ×3 (14:45→21:21)
[2019-05-16] MEDS: NIFEDIPINE CR 30 MG TAB PO SCH (14:46)
--- NOTE | 2019-05-16 17:00 | NUR ---
HAD LONG DISCUSSION WITH DR. TRAMMELL AND YULIA DOWNEY REGARDING PLACEMENT OF DIALYSIS CATHETER. DR TRAMMELL STATES PT WILL GET HEMODIALYSIS TOMORROW AND KEEP CURRENT CATHETER AT THIS TIME.
--- NOTE | 2019-05-16 17:38 | NUR ---
CALLED [facility] AND CONFIRMED PT TO GET DIALYZED TOMORROW IN THE AM.
--- NOTE | 2019-05-16 19:30 | NUR ---
RECEIVED PATIENT. PATIENT IS AAOX3. RESP EVEN AND UNLABORED. NO ACUTE DISTRESS AT THIS TIME. PATIENT DENIES OF ANY PAIN OR DISCOMFORT AT THIS TIME. SONG IN PLACE, REMEDIOS AND CLEAR URINE NOTED. RIGHT KNEE SWOLLEN NOTED. CALL LIGHT WITHIN REACH. INSTRUCT PATIENT TO CALL FOR ASSISTANCE. BED LOW/LOCKED. CONTINUE TO MONITOR CLOSELY
[2019-05-16] MEDS: INSULIN GLARGINE 100 UNITS/ML VIAL SQ SCH (21:00)
[2019-05-17] VITALS (7 sets, daily range): BP systolic 129–148; BP diastolic 75–90
[2019-05-17] MEDS: HYDROMORPHONE 1MG/1ML INJ IV PRN ×6 (05:23→22:25)
[2019-05-17] MEDS: ONDANSETRON HCL INJ 2MG/ML 2ML 2 MG/ML VIAL IV PRN (05:23)
[2019-05-17 05:40] LABS: ANION GAP 13.4 mmol/L (8-16); CREATININE, SERUM 4.75 mg/dL (0.72-1.25); POTASSIUM 5.4 mmol/L (3.5-5.1)
--- NOTE | 2019-05-17 07:08 | NUR ---
CHANGE OF SHIFT REPORT RECEIVED FROM PM NURSE; PT IN STABLE CONDITION.
[2019-05-17] MEDS: INSULIN LISPRO 100 UNIT/1 ML 3ML VIAL SQ SCH ×7 (07:30→21:00)
[2019-05-17] MEDS: METOCLOPRAMIDE HCL 10 MG TAB PO SCH ×4 (08:27→21:57)
[2019-05-17] MEDS: OYST-CAL-D 500MG TABLET PO SCH ×3 (08:27→21:57)
[2019-05-17] MEDS: SODIUM BICARBONATE 650 MG TAB PO SCH ×2 (08:28→17:21)
[2019-05-17] MEDS: NIFEDIPINE CR 30 MG TAB PO SCH (08:28)
--- NOTE | 2019-05-17 09:37 | NUR ---
FAXED UPDATES TO [facility]
[2019-05-17] MEDS ORDERED: SODIUM CHLORIDE 0.9% 1000ML 2,000 ML ONE (11:27)
[2019-05-17] MEDS ORDERED: SODIUM CHLORIDE 0.9% 1000ML 2,000 ML IV PRN (12:15)
[2019-05-17] MEDS ORDERED: MANNITOL 25% 12.5GM/50 ML VIAL IV PRN (12:15)
--- NOTE | 2019-05-17 14:21 | NUR ---
pt finished dialysis; pt tolerated well, blood pressure stable, respirations even and nonlabored.
[2019-05-17] MEDS: CEFTAZIDIME SOD 2 GM/NS 100ML 100 ML IV SCH (14:45)
--- NOTE | 2019-05-17 16:10 | NUR ---
DISCUSSED PLAN WITH DR VALVERDE STATES THAT PLAN IS HEMODIALYSIS TOMORROW THEN EXCHANGE DIALYSIS CATH FOR CENTRAL LINE PLAN DC FROM HOSPITAL ON THURSDAY 05/18 AND GET HOME VISIT FROM P.D. NURSES FOR TEACH ON FRIDAY 05/19
[2019-05-17] MEDS: INSULIN GLARGINE 100 UNITS/ML VIAL SQ SCH (21:00)
[2019-05-18] VITALS (9 sets, daily range): BP systolic 114–177; BP diastolic 65–101
[2019-05-18] MEDS: HYDROMORPHONE 1MG/1ML INJ IV PRN ×5 (01:30→20:13)
--- NOTE | 2019-05-18 07:00 | NUR ---
BEDSIDE SHIFT REPORT RECEIVED FROM SALES APPOINTMENT COORDINATOR NURSE. PT DENIES NEEDS AT THIS TIME.
[2019-05-18] MEDS: INSULIN LISPRO 100 UNIT/1 ML 3ML VIAL SQ SCH ×7 (07:30→20:09)
[2019-05-18] MEDS: METOCLOPRAMIDE HCL 10 MG TAB PO SCH ×4 (07:30→20:48)
--- NOTE | 2019-05-18 07:30 | NUR ---
Bedside report and rounds completed with oncoming nurse. Patient in bed with call light in reach. No issues or concerns expressed or noted.
[2019-05-18] MEDS: OYST-CAL-D 500MG TABLET PO SCH ×3 (09:00→20:49)
[2019-05-18] MEDS: NIFEDIPINE CR 30 MG TAB PO SCH ×2 (09:00→12:14)
[2019-05-18] MEDS: SODIUM BICARBONATE 650 MG TAB PO SCH ×2 (09:00→16:26)
[2019-05-18 09:28] LABS: BASOPHILS % 0.5 % (0.0-1.0); EOSINOPHILS # (AUTO) 0.2 (0.0-0.4); EOSINOPHILS % 4.5 % (0.0-6.0); HEMATOCRIT 30.1 % (38.2-49.6); HEMOGLOBIN 9.3 g/dL (14.0-18.0); LYMPHOCYTES # (AUTO) 1.2 (1.0-3.2); LYMPHOCYTES % 29.5 % (18.0-39.1); MEAN CORPUSCULAR HEMOGLOBIN 25.8 pg (28-32); MEAN CORPUSCULAR HGB CONC 30.9 g/dL (31-35); MEAN CORPUSCULAR VOLUME 83.4 fL (81-99); MONOCYTES # (AUTO) 0.2 (0.2-0.8); MONOCYTES % 5.7 % (4.4-11.3); NEUTROPHILS # (AUTO) 2.5 (2.1-6.9); NEUTROPHILS % 59.3 % (38.7-80.0); PLATELET COUNT 133 x10e3/uL (140-360); RED BLOOD COUNT 3.61 x10e6/uL (4.3-5.7); RED CELL DISTRIBUTION WIDTH 14.6 % (11.7-14.4)
--- NOTE | 2019-05-18 11:42 | NUR ---
Per Dr. Blum, pt no longer needs outpatient IV abx.
[2019-05-18] MEDS: CEFTAZIDIME SOD 2 GM/NS 100ML 100 ML IV SCH (12:14)
--- NOTE | 2019-05-18 19:05 | NUR ---
BEDSIDE SHIFT REPORT RECEIVED FROM DAY RN. CENTRAL CATH WITH PORT- DIALYSIS RT INTACT. RESPIRATIONS ARE EVEN AND UNLABORED. PT IS ALERT AND ORIENTED X3. PERITONEAL CATH INTACT. SUPRAPUBIC CATH IS PATENT- DRAINING CLEAR YELLOW URINE. SL 22G INTACT AND FLUSHES EASILY. PT LYING IN BED LOOKING AT HIS PHONE. CALL LIGHT WITHIN REACH. BED LOCKED AND IN LOW POSITION. PT REPORTS FEELING WEAK AFTER DIALYSIS TODAY.
[2019-05-18] MEDS: ONDANSETRON HCL INJ 2MG/ML 2ML 2 MG/ML VIAL IV PRN (20:09)
--- NOTE | 2019-05-18 20:42 | Operative Report ---
DATE OF PROCEDURE: 05/10/2019 SURGEON: Castro Jalloh MD PREOPERATIVE DIAGNOSES: 1. Right ureteral stricture. 2. Right hydronephrosis due to stricture. 3. Right indwelling ureteral stent. 4. Chronic urinary retention. 5. Cystostomy tube status. OPERATIONS PERFORMED: 1. Change of cystostomy tube (separate procedure performed for the diagnosis of the cystostomy and urinary retention). 2. Cystourethroscopy with complicated removal of right indwelling ureteral stent (separate procedure performed for the diagnosis of stents). 3. Cystoscopy with dilation of right ureteral stricture (separate procedure performed for the right ureteral obstruction at the level of the proximal ureter as well as at the level of the distal ureter). 4. Urological Services for supervision and interpretation of stricture dilation. 5. Cystourethroscopy with insertion of right indwelling ureteral stent (separate procedure performed to relieve the hydronephrosis). 6. Interpretation of retrograde ureteropyelography. 7. Supervision of fluoroscopy, no radiologist present. ANESTHESIA: General. COMPLICATIONS: None. CLINICAL SUMMARY: Sukh Lozanois a very complicated 38-year-old man who is currently admitted with an infection. He is heading very swiftly to her dialysis. He is in the process of attempting to get on the transplant list at the [facility]. He underwent a urodynamic study, which showed a very poorly compliant bladder with chronic urinary retention. The patient is brought for a stent change, which he is due to have around this time. He is aware of the risks of bleeding, infection, injury to adjacent structures, need for additional procedures and elected to proceed. He also is at an increased risk of anesthesia. OPERATIVE PROCEDURE IN DETAIL: Informed consent was verified. Sukh Lozano was properly identified, taken to the operating room, placed on the cystoscopy table in supine position. Anesthesia was uneventfully begun. The patient was then carefully and gently repositioned in dorsal lithotomy position. All pressure points were well padded. The cystostomy tube was removed. His abdomen and genitalia were prepared and draped in usual sterile fashion. A 22-Eritrean Barcenas catheter with a 10 mL balloon was atraumatically advanced into the patient's suprapubic cystostomy tract, filled with 10 mL of sterile water, irrigated to and fro to ensure it worked properly. The cystoscope sheath with visual obturator in place was atraumatically inserted into the patient's urethra. It was guided down to the unremarkable distal urethra to the bulbar region, where there was some mucosal irregularity and friability. The sphincteric region was normal. We went through the prostate bed. No evidence of significant BPH, but a slightly elevated median bar. We went to the patient's bladder and drained it. Panendoscopy revealed no suspicious mucosal lesions, no tumors, no stones, no diverticula. A stent was noted to be emerging from the right ureteral orifice. A guidewire was then placed alongside the stent and guided to the level of the patient's kidney. The stent was then grasped completely, removed and discarded. A double-lumen ureteral catheter was then placed over the guidewire and guided with fluoroscopic guidance all the way to the renal pelvis. Contrast was injected. We utilized this as a coaxial dilator as we dilated the proximal ureteral region as well as the distal ureteral region and they were obstructing. With cystoscopic and fluoroscopic guidance, a right-sided indwelling ureteral stent was then placed. It was coiled in the patient's kidney as well as the patient's bladder. The retaining suture was cut short. Interpretation of retrograde ureteropyelography contrast was instilled in retrograde fashion in the right hand side. There were no tumors. There were no stones. There were no diverticula. There was hydronephrosis due to stricture of the proximal ureter as well as the distal ureter. The stent was in good position, coiled in the patient's kidney as well as the patient's bladder at the end of the case. The patient's bladder was drained. Cystoscope was withdrawn. Belladonna and opium suppository were placed. The patient was uneventfully reversed from anesthesia and taken to the recovery room in stable condition. There were no complications to the procedure. The patient tolerated the procedure well. PLAN: The patient hopefully can obtain a renal transplant to maintain the best quality of life. His bladder could pose a challenge to reimplantation. Right nephrectomy needs to be seriously considered should the patient make the transplant list. Performance after procedure may be challenging in light of the patient's Temple beliefs. Castro Jalloh MD [place]/MODL /[id number] cc: Donald Potts MD
[2019-05-18] MEDS: INSULIN GLARGINE 100 UNITS/ML VIAL SQ SCH (21:00)
[2019-05-19] MEDS: ONDANSETRON HCL INJ 2MG/ML 2ML 2 MG/ML VIAL IV PRN ×2 (02:59→08:42)
[2019-05-19] MEDS: HYDROMORPHONE 1MG/1ML INJ IV PRN (03:47)
[2019-05-19 05:25] VITALS: BP 135/75
[2019-05-19 05:36] LABS: ANION GAP 11.7 mmol/L (8-16); CALCIUM 8.2 mg/dL (8.4-10.2); CREATININE, SERUM 3.5 mg/dL (0.72-1.25); POTASSIUM 4.7 mmol/L (3.5-5.1)
--- NOTE | 2019-05-19 07:00 | NUR ---
BEDSIDE SHIFT REPORT RECEIVED FROM FREIGHT CAR LOADER NURSE. PT DENIES NEEDS AT THIS TIME.
[2019-05-19] MEDS: INSULIN LISPRO 100 UNIT/1 ML 3ML VIAL SQ SCH ×7 (07:30→20:46)
[2019-05-19 08:00] VITALS: BP 162/84
[2019-05-19 08:08] VITALS: BP 162/84
[2019-05-19] MEDS: METOCLOPRAMIDE HCL 10 MG TAB PO SCH (08:11)
[2019-05-19] MEDS: OYST-CAL-D 500MG TABLET PO SCH ×3 (08:42→20:46)
[2019-05-19] MEDS: SODIUM BICARBONATE 650 MG TAB PO SCH ×2 (08:42→17:58)
--- NOTE | 2019-05-19 09:24 | NUR ---
Nutrition Screen Note RD Recommendation for Physician: - Continue current diet per MD. -Recommend Nepro supplement BID. -Consider bowel regimen per MD, Pt reports he is constipated. Plan of Care: RD following, monitoring for tolerance and adequacy. Nepro BID Nutrition reason for involvement: follow up Primary Diagnose(s): End Stage Renal Failure PMH: 1. Chronic kidney disease, stage 4. 2. Type 2 diabetes mellitus. 3. Hypertension. 5. Anemia of chronic disease. Ht: 71in Wt: 220 lbs 216.44lb (05/06) BMI: 30.7kg/m2 IBW: 172lb +/- 10% RD Assessment: 05/18: Follow up: Pt was seen resting in bed, he reported his intake has been somewhat poor. Per FS, the pt has been consuming 50-100% of his meals recently. The pt was open to receiving Nepro BID d/t him having a poor appetite. Pt reported he was dealing with N/V-pt is on zofran. Pt reported he was also constipated, recommend bowel regimen per MD if medically feasible. Pt had no other questions or concerns. Possible d/c today. Will continue to monitor. (05/11) Follow up. Pt is NPO for a procedure PD catheter placement. Pt was not available at time of visit. It is recorded that pt consumed 100% of his meals yesterday. Will continue to monitor. (05/06) Chart reviewed. Labs and meds reviewed. 38yo M, who was admitted for end stage renal failure. K has trend down from 5.5 to 5.0. No phosphorus lab. Pt was well known to me from his recent admissions. 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 Pt denied chewing/swallowing problems. Pt reported of some nausea/ vomiting and was given Zofran. At this time, it is unknown that if pt need outpatient HD treatment. Pt wants to get on the kidney/ pancreas transplant list. RD offered diet education but pt was not interested. Will continue to monitor and follow. Current Diet: renal DM diet Malnutrition Evaluation (05/06) The patient does not meet criteria for a specified degree of malnutrition at this time. Will re-evaluate at follow-up as appropriate. Diet Education Needs Assessment: Diet education indicated but pt refused during 05/06 assessment- Handouts and diet instruction were given during his last visit in 09/2018. Nutrition Care Level: low Signed: Kayla Wayne RD, LD
[2019-05-19] MEDS ORDERED: HYDROCODONE/APAP 7.5MG-325MG 1 EA TAB PO PRN (11:00)
[2019-05-19] MEDS: METOCLOPRAMIDE HCL 10 MG/2ML VIAL IV SCH ×2 (11:46→17:58)
[2019-05-19] MEDS ORDERED: SODIUM CHLORIDE 0.9% 1000ML 2,000 ML IV PRN (14:45)
[2019-05-19] MEDS ORDERED: SODIUM CHLORIDE 0.9% 250ML 500 ML IV PRN (14:45)
[2019-05-19] MEDS ORDERED: HEPARIN SOD (PORCINE) 1000 UNIT/ML SDV IV PRN (14:45)
[2019-05-19 15:59] VITALS: BP 137/85
--- NOTE | 2019-05-19 19:07 | NUR ---
BEDSIDE REPORT RECEIVED FROM DAY RN. PT IS ALERT AND ORIENTED X3. HEMODIALYSIS CATH RT SIDE INTACT. PERITONEAL CATH INTTACT. DRESSING CHANGED- NO SIGN OF INFECTION. ABDOMINAL INCISION STERISTRIPS DRY AND INTACT. 22 G SL IN RT WRIST.RESPIRATIONS ARE EVEN AND UNLABORED. PT C/O OF NAUSEA. ZOFRAN NOT WORK WELL PHENERGAN- WILL GIVE MED.CALL LIGHT WITHIN REACH. BED IN LOW POSITION.
[2019-05-19 20:36] VITALS: BP 138/88
[2019-05-19] MEDS: PROMETHAZINE 12.5MG/ NACL 0.9% 12.5 MG/50 ML BAG IV PRN (20:36)
[2019-05-19] MEDS: INSULIN GLARGINE 100 UNITS/ML VIAL SQ SCH (20:48)
[2019-05-19 21:00] VITALS: BP 138/88
[2019-05-20] VITALS (7 sets, daily range): BP systolic 120–171; BP diastolic 74–96
[2019-05-20] MEDS: INSULIN LISPRO 100 UNIT/1 ML 3ML VIAL SQ SCH ×7 (07:30→21:30)
[2019-05-20] MEDS ORDERED: EPOETIN ALFA-EPBX 10,000 UNIT/ML VIAL SC ONE (09:15)
[2019-05-20] MEDS: METOCLOPRAMIDE HCL 10 MG/2ML VIAL IV SCH ×3 (09:25→16:08)
[2019-05-20] MEDS: OYST-CAL-D 500MG TABLET PO SCH ×3 (09:25→21:00)
[2019-05-20] MEDS: NIFEDIPINE CR 30 MG TAB PO SCH (09:25)
[2019-05-20] MEDS: SODIUM BICARBONATE 650 MG TAB PO SCH ×2 (09:26→16:08)
--- NOTE | 2019-05-20 12:01 | Diagnostic Imaging Report ---
Exam: Abdominal film Clinical History: Nausea, vomiting Comparison: 05/16/2019 DISCUSSION: Right internal ureteral stent, peritoneal catheter, and suprapubic bladder catheter are unchanged in position. The bowel gas pattern shows no dilated, air-filled loops of bowel. Gas and fecal material are noted throughout. Dystrophic pancreatic head and uncinate process calcifications unchanged. Regional skeletal structures are intact. IMPRESSION: Stable support lines and tubes. Nonobstructive bowel gas pattern. Signed by: Dr. Dveon Park M.D. on 05/20/2019 11:57 AM
--- NOTE | 2019-05-20 12:24 | NUR ---
Dr. Jalloh wrote an order for leg li during the day and the patient refused. He said he would change it to the leg li when he leaves. Will continue to monitor.
[2019-05-20] MEDS ORDERED: INSULIN GLARGINE 100 UNITS/ML VIAL SQ SCH (21:00)
[2019-05-21] VITALS (7 sets, daily range): BP systolic 141–167; BP diastolic 81–104
--- NOTE | 2019-05-21 07:00 | NUR ---
received bedside report. pt is asleep, no s/s of distress. call light within reach and bed safety in place
[2019-05-21] MEDS: METOCLOPRAMIDE HCL 10 MG/2ML VIAL IV SCH ×2 (07:30→11:25)
[2019-05-21] MEDS: INSULIN LISPRO 100 UNIT/1 ML 3ML VIAL SQ SCH ×4 (07:30→11:25)
[2019-05-21] MEDS: OYST-CAL-D 500MG TABLET PO SCH (08:33)
[2019-05-21] MEDS: NIFEDIPINE CR 30 MG TAB PO SCH ×2 (08:33→13:40)
[2019-05-21] MEDS: SODIUM BICARBONATE 650 MG TAB PO SCH (08:33)
--- NOTE | 2019-05-21 08:37 | NUR ---
turning and beading machine operator at the bedside preparing for HD
--- NOTE | 2019-05-21 11:31 | Discharge Summary ---
CONSULTANTS: 1. Dr. Duane Meredith. 2. Dr. Castro Jalloh. 3. Dr. Lew Karimi. 4. Dr. Ciro Blum. FINAL DIAGNOSES: 1. Complicated urinary tract infection associated with urinary retention, suprapubic catheter, and hydronephrosis associated with right ureteral stone, right ureteral stent, right hydronephrosis, and retention with suprapubic catheter. 2. Status post cystoscopy with right ureteral stent exchange and replacement, that was done on May 10, 2019. 3. The patient had sepsis on admission associated with the above, urinary tract infection, complicated infection with stone and catheter. 4. End-stage renal disease, now on dialysis. 5. Persistent hyperkalemia, treatment. 6. Methicillin-sensitive Staphylococcus aureus and Escherichia coli with multi-resistant bacteria. 7. Multiple chronic medical problems. SUMMARY: The patient is a 38-year-old male with suprapubic catheter, chronically ill, but stable, chronic infection with exacerbation of the infection, came in with sepsis. The patient with infection, subsequently underwent cystoscopy with stent exchange to the right ureter with right hydronephrosis. The patient also had hyperkalemia. He has end-stage renal disease. He had a peritoneal catheter placed for peritoneal dialysis. In the meantime, the patient had a right upper chest dialysis catheter placement, subsequently received hemodialysis. The patient continued with his treatment antibiotic, Azactam. He is doing better. The patient has been cleared by Infectious Disease for discharge home. His blood sugar was improving, stable. He passed the dialysis for the past few days. Dialysis will be set up by Dr. Lew Karimi. He will have peritoneal dialysis upon discharge, but the right upper chest catheter will remain in place in case that the patient will need hemodialysis to treat with his problem. He did have persistent nausea and vomiting, improved with Reglan and given. The patient given prescription for as needed. For now, for him to tolerate oral intake. The patient will get dialysis today and subsequently discharged home. He will continue with his medication at home and follow up in the clinic and also set up for dialysis as an outpatient with peritoneal dialysis. Discussed with Dr. Lew Karimi, his farm crew leader. The patient is otherwise stable. Resume home medication and all instructions were given and discharged home today. MD SADA Haywood/NOREEN /[id number]
== END 2019-05-21 14:22 | disposition home or self-care (01) | DRG 659 ==
LOC: ER 18:29 → ERHOLD 21:01 → MED/SURG2 23:11
PROVIDERS: ADMIT Internal Medicine; ATTEND Internal Medicine
PROC: 0T768DZ Dilation of Right Ureter with Intraluminal Device, Via Natural or Artificial Opening Endoscopic (ICD-10-PCS; 2019-05-10)
PROC: 0T2BX0Z Change Drainage Device in Bladder, External Approach (ICD-10-PCS; 2019-05-10)
PROC: 0TP98DZ Removal of Intraluminal Device from Ureter, Via Natural or Artificial Opening Endoscopic (ICD-10-PCS; principal; 2019-05-10 11:00)
PROC: 0WHG43Z Insertion of Infusion Device into Peritoneal Cavity, Percutaneous Endoscopic Approach (ICD-10-PCS; 2019-05-12)
PROC: 3E1M39Z Irrigation of Peritoneal Cavity using Dialysate, Percutaneous Approach (ICD-10-PCS; 2019-05-12)
PROC: 0JH63XZ Insertion of Tunneled Vascular Access Device into Chest Subcutaneous Tissue and Fascia, Percutaneous Approach (ICD-10-PCS; 2019-05-16)
PROC: 02H633Z Insertion of Infusion Device into Right Atrium, Percutaneous Approach (ICD-10-PCS; 2019-05-16)
PROC: B548ZZA Ultrasonography of Superior Vena Cava, Guidance (ICD-10-PCS; 2019-05-16)
DX: T83.510A Infection and inflammatory reaction due to cystostomy catheter, initial encounter (principal); A41.9 Sepsis, unspecified organism; N18.6 End stage renal disease; N17.9 Acute kidney failure, unspecified; N20.1 Calculus of ureter; I12.0 Hypertensive chronic kidney disease with stage 5 chronic kidney disease or end stage renal disease; N13.8 Other obstructive and reflux uropathy; N13.1 Hydronephrosis with ureteral stricture, not elsewhere classified; N10 Acute pyelonephritis; B37.49 Other urogenital candidiasis; E10.22 Type 1 diabetes mellitus with diabetic chronic kidney disease; Z90.49 Acquired absence of other specified parts of digestive tract; Z91.041 Radiographic dye allergy status; Z83.3 Family history of diabetes mellitus; Z82.49 Family history of ischemic heart disease and other diseases of the circulatory system; N31.9 Neuromuscular dysfunction of bladder, unspecified; E10.42 Type 1 diabetes mellitus with diabetic polyneuropathy; Z79.4 Long term (current) use of insulin; E87.5 Hyperkalemia; B96.20 Unspecified Escherichia coli [E. coli] as the cause of diseases classified elsewhere; B95.61 Methicillin susceptible Staphylococcus aureus infection as the cause of diseases classified elsewhere; B96.89 Other specified bacterial agents as the cause of diseases classified elsewhere; E10.21 Type 1 diabetes mellitus with diabetic nephropathy; D63.1 Anemia in chronic kidney disease; R11.2 Nausea with vomiting, unspecified; T37.8X5A Adverse effect of other specified systemic anti-infectives and antiparasitics, initial encounter; R19.7 Diarrhea, unspecified
CPT/HCPCS: 36415; 36558; 71046; 74018; 74420; 74470; 76937; 77001; 80048; 80053; 80076; 81001; 82728; 82948; 83036; 83518; 83540; 83605; 84100; 84439; 84443; 84466; 85025; 85610; 86705; 86706; 87040; 87070; 87086; 87186; 87340; 87400; 90962; 93005; 96360; 99152; 99284; C1758; C1769; C1892; C2617; J0610; J0690; J0715; J1100; J1170; J1644; J1817; J1940; J2001; J2150; J2250; J2270; J2405; J2550; J2710; J2765; J2916; J3010; J7030; J7040; J7050; J7799

== ENCOUNTER 2019-05-30 00:19 | Inpatient (IN) | payer BC ==
[~2019-05-30] VITALS: Ht 180.3 cm; Wt 89.8 kg
[2019-05-30] VITALS (9 sets, daily range): BP systolic 93–146; BP diastolic 54–84
[2019-05-30] MEDS ORDERED: ACETAMINOPHEN 325 MG TAB PO ONE (00:30)
[2019-05-30] MEDS ORDERED: MEROPENEM 500MG 500 MG in SODIUM CHLORIDE 0.9% 50ML 50 ML IV STA (00:38)
[2019-05-30 00:47] LABS: BASOPHILS % 0.3 % (0.0-1.0); EOSINOPHILS # (AUTO) 0.1 (0.0-0.4); HEMATOCRIT 29.8 % (38.2-49.6); HEMOGLOBIN 9.5 g/dL (14.0-18.0); LYMPHOCYTES # (AUTO) 1.4 (1.0-3.2); MEAN CORPUSCULAR HEMOGLOBIN 26.3 pg (28-32); MEAN CORPUSCULAR HGB CONC 31.9 g/dL (31-35); MEAN CORPUSCULAR VOLUME 82.5 fL (81-99); MONOCYTES # (AUTO) 0.6 (0.2-0.8); MONOCYTES % 8.7 % (4.4-11.3); NEUTROPHILS # (AUTO) 4.4 (2.1-6.9); NEUTROPHILS % 67.7 % (38.7-80.0); PLATELET COUNT 146 x10e3/uL (140-360); RED BLOOD COUNT 3.61 x10e6/uL (4.3-5.7); RED CELL DISTRIBUTION WIDTH 15.2 % (11.7-14.4)
[2019-05-30 01:06] LABS: ALBUMIN 2.7 g/dL (3.5-5.0); ALBUMIN/GLOBULIN RATIO 0.5 (0.8-2.0); ALKALINE PHOSPHATASE 197 IU/L (40-150); ANION GAP 13.7 mmol/L (8-16); BLOOD UREA NITROGEN 55 mg/dL (7-26); BUN/CREATININE RATIO 11 (6-25); CALCIUM 7.5 mg/dL (8.4-10.2); CARBON DIOXIDE 13 mmol/L (22-29); CHLORIDE 110 mmol/L (98-107); CREATININE, SERUM 4.83 mg/dL (0.72-1.25); EST GLOMERULAR FILTRATION RATE 14 ML/MIN (60-); GLUCOSE 304 mg/dL (74-118); POTASSIUM 4.7 mmol/L (3.5-5.1); SODIUM 132 mmol/L (136-145)
[2019-05-30 01:08] LABS: ALANINE AMINOTRANSFERASE < 6 IU/L (0-55)
--- NOTE | 2019-05-30 01:22 | Diagnostic Imaging Report ---
CT Abdomen and Pelvis without contrast INDICATION: Right lower quadrant pain and fever, ^fever, right lower abd pain ^[id number] ^0050 ^Y TECHNIQUE: Thin collimation axial images obtained from the diaphragm to the level of the pubic symphysis without nonionic intravenous contrast. Dose reduction techniques used: Automated exposure control, adjustment of the mAs and/or kVp according to patient size, standardized low-dose protocol, and/or iterative reconstruction technique. RADIATION DOSE: Total DLP: 512.47 mGy*cm Estimated effective dose: (DLP x 0.015 x size factor) mSv CTDIvol has been reviewed. It is below the limits set by the Radiation Protocol Committee (RPC). COMPARISON: Abdomen x-ray 05/20/2019. CT abdomen/pelvis 10/18/2018 ABDOMEN FINDINGS: Lung Bases: Lung bases are clear. Dual lumen central venous catheter terminates in the cavoatrial junction. The heart is normal in size. Liver: Normal in attenuation without mass. Gallbladder: Absent. No ductal dilatation. Pancreas: Diffusely calcified. No ductal dilatation or mass on this unenhanced examination. Spleen: Measures 14 cm in length. No mass. Adrenal Glands: No evidence for mass. Kidneys: Right: Atrophic with cortical scarring. Ureteral stent is redemonstrated extending into the bladder. No calcification along the course of the stent. No intrarenal calculi. No perinephric inflammation Left: The renal pelvis is patulous and stable in morphology without joshua hydronephrosis. No evidence of calculus. No perinephric inflammation. No cortical mass or hydronephrosis Lymph Nodes: Multiple enlarged right pelvic sidewall and inguinal lymph nodes are increasing in size. For example, an obturator lymph node measures 3.8 x 2.1 cm. An inguinal lymph node measures 1.4 x 2.7 cm. Aorta: Normal in diameter. PELVIS FINDINGS: Bowel: Stomach: Normal. Small Bowel: Normal in caliber with normal wall thickness. Large Bowel: Moderate burden of stool throughout. Appendix: Normal. Bladder: Collapsed around a suprapubic catheter. The conway are diffusely thickened and stable in appearance. Small amount of intraluminal air. Ureters: The left ureter is distended throughout its course but not particularly dilated. No evidence of calculus. Peritoneal dialysis catheter enters via the right abdominal wall and terminates in the right lower quadrant. There is a small amount of surrounding fluid. Bones: Increased attenuation consistent with renal osteodystrophy. No focal osseous lesions. IMPRESSION: 1. Right ureteral stent in appropriate position. No hydronephrosis. 2. Patulousness of the left renal pelvis without hydronephrosis. Mild prominence of the left ureter without calculus. Please correlate for signs/symptoms of UTI. 4. Diffuse chronic bladder wall thickening of uncertain etiology. Appropriate position of suprapubic catheter. 5. Increasing right pelvic and inguinal lymphadenopathy may be secondary to infection. Stable splenomegaly. 6. Chronic pancreatitis. 7. Renal osteodystrophy. Signed by: Dr. Sandy Powers MD on 05/30/2019 1:18 AM
--- NOTE | 2019-05-30 01:23 | Diagnostic Imaging Report ---
EXAMINATION: CHEST SINGLE (PORTABLE) COMPARISON: Chest x-ray 05/06/2019 INDICATION: ^fever ^[id number] ^0050 ^Y DISCUSSION: Frontal view of the chest obtained at 0101 hours. HEART AND MEDIASTINUM: The heart is normal in size. LINES: Dual lumen central venous catheter terminates at the cavoatrial junction. LUNGS: The lungs are well inflated and clear. No pneumonia or pulmonary edema. PLEURA: No pleural effusion or pneumothorax. BONES AND SOFT TISSUES: No focal osseous lesion. The soft tissues are normal. IMPRESSION: No acute cardiopulmonary disease. Signed by: Dr. Sandy Powers MD on 05/30/2019 1:20 AM
[2019-05-30 02:11] LABS: BILIRUBIN,URINE NEGATIVE (NEGATIVE); CLARITY,URINE CLOUDY (CLEAR); COLOR,URINE YELLOW (YELLOW); KETONES,URINE NEGATIVE (NEGATIVE); NITRITE,URINE POSITIVE (NEGATIVE); PROTEIN,URINE DIPSTICK >=300 (NEGATIVE); URINE UROBILINOGEN 0.2 mg/dL (0.2 - 1)
[2019-05-30 02:12] LABS: LEUKOCYTE ESTERASE ,URINE 2+ (NEGATIVE)
[2019-05-30 02:21] LABS: BACTERIA,URINE MANY /HPF; EPITHELIAL CELLS,URINE FEW /LPF; MUCUS,URINE FEW (RARE); RBC,URINE 21-50 /HPF (0-5); WBC,URINE (MAN) >50 /HPF (0-5); YEAST,URINE MANY
[2019-05-30] MEDS ORDERED: SODIUM CHLORIDE FLUSH 10 ML SYR INJ PRN (02:45)
[2019-05-30] MEDS ORDERED: DEXTROSE 50% SYRINGE 50 ML IV PRN ×2 (02:45→08:45)
[2019-05-30] MEDS ORDERED: ACETAMINOPHEN 325 MG TAB PO PRN (02:45)
[2019-05-30] MEDS: MORPHINE SULFATE 2 MG/ML SYR 1ML IV PRN ×5 (03:39→22:27)
[2019-05-30] MEDS: ONDANSETRON HCL INJ 2MG/ML 2ML 2 MG/ML VIAL IV PRN ×5 (03:39→22:26)
[2019-05-30] MEDS ORDERED: INSULIN REGULAR, HUMAN 100 UNIT/1 ML 3ML VIAL SQ SCH (07:30)
--- NOTE | 2019-05-30 07:30 | NUR ---
PATIENT IS AWAKE, ALERT, AND IN STABLE CONDITION WITH NO S/S OF RESPIRATORY DISTRESS. PATIENT C/O RIGHT SIDED ABD PAIN 8/10; PATIENT HAS BEEN INFORMED PAIN MEDICATION IS NOT AVAILABLE AT THIS TIME AND WILL BE ADMINISTERED TO HIM WHEN AVAILABLE ALONG WITH THE ZOFRAN. PERITONEAL CATHETER NOTED TO RIGHT SIDE OF ABD; CATHETER PLACED IN POCKET OF ABD BINDER. SUPRAPUBIC CATHETER NOTED- PATIENT REFUSED A DRESSING TO BE APPLIED AROUND SUPRAPUBIC CATHETER SITE. PATIENT HAS HIS OWN PERSONAL CRUTCHES AVAILABLE NEAR BEDSIDE ALONG WITH A WALKER. PATIENT REFUSED THE BED ALARM TO BE APPLIED. CALL LIGHT IS WITHIN REACH, PATIENT INSTRUCTED TO CALL FOR ASSISTANCE NEEDED.
[2019-05-30] MEDS: NIFEDIPINE CR 30 MG TAB PO SCH ×3 (10:28→15:59)
[2019-05-30] MEDS: FLUCONAZOLE 100 MG TAB PO SCH (10:29)
[2019-05-30] MEDS ORDERED: SODIUM CHLORIDE 0.9% 250ML 250 ML ONE (10:32)
[2019-05-30] MEDS: MEROPENEM 500MG/ NS 50ML 50 ML IV SCH ×2 (10:32→17:00)
[2019-05-30] MEDS: SODIUM BICARBONATE 650 MG TAB PO SCH ×3 (10:39→20:56)
[2019-05-30] MEDS: GABAPENTIN 300 MG CAP PO SCH ×3 (10:39→20:56)
[2019-05-30] MEDS: MAGNESIUM OXIDE 400 MG TAB PO SCH ×3 (10:39→20:56)
[2019-05-30] MEDS: INSULIN LISPRO 100 UNIT/1 ML 3ML VIAL SQ SCH ×5 (11:30→20:56)
--- NOTE | 2019-05-30 12:06 | History and Physical ---
CHIEF COMPLAINT: Right-sided abdominal pain, fever, complicated urinary bladder infection associated with suprapubic catheter. SUMMARY: This is a 38-year-old male, recently discharged home from the hospital. He was discharged back on May 21, 2019. The patient was doing fairly well at the time when he went home with a right upper chest dialysis catheter, but he is also with recent status post peritoneal dialysis catheter that was placed. The patient also had cystoscopy done on May 10, 2019. He had a change of this ostomy tube and removal of the right indwelling ureteral stent and then insertion of another right ureteral stent for replacement. The patient was then discharged home. He fairly okay until now, he came in with complaint of fever at home. Temperature was 101. He also complained of right lower abdominal pain area and the CT of the abdomen and pelvis without contrast showed that he had a right ureteral stent in appropriate position, there was no hydronephrosis. His left renal pelvis without hydronephrosis. Mild prominent of the left ureteral without calculus. There is diffuse chronic urinary bladder wall thickening. He also has increased right pelvic and inguinal lymphadenopathy. Chronic pancreatitis notice. Renal osteodystrophy. The patient is now admitted. He did receive one dose of meropenem early this morning. He is pending for further infusion. His urinalysis showed WBC greater than 50. His bacteria were many and many yeast as well. The patient is dealt with right-sided pain. He is otherwise stable however. The blood culture, urine cultures still pending at this time. PAST MEDICAL HISTORY: Near end-stage renal disease. He did receive hemodialysis in the hospital prior to his discharge. He had a peritoneal catheter placed and pending for peritoneal dialysis as an outpatient. Multiple lower extremity surgeries due to previous trauma and injury. Neurogenic urinary bladder secondary to diabetes type 1. He has a suprapubic catheter. Diabetes type 1 brittle on insulin therapy. Diabetic neuropathy. Muscular atrophy both upper and lower extremity chronically gradually secondary to diabetes with neuropathy. He had a right ureteral strictures, right hydronephrosis, indwelling ureteral stent, right kidney atrophy. Chronic pancreatitis. Cholecystectomy. SOCIAL HISTORY: The patient does not smoke or use alcohol. No regular drug. ALLERGIES: TO IODINE CONTRAST MEDIA, P.O. CONTRAST. HOME MEDICATIONS: List is reviewed. The patient was on Lasix, gabapentin, insulin, nifedipine, sodium bicarbonate, . PHYSICAL EXAMINATION: VITAL SIGNS: Temperature is 101, blood pressure 137/79, pulse with 110, respiration 20. GENERAL: The patient is not in acute distress. He is awake. HEENT: Normocephalic and atraumatic. Anicteric. NECK: Supple, grossly. PULMONARY: Diminished breath sounds. CARDIOVASCULAR: S1, S2. Regular rate and rhythm. CHEST: Right hemodialysis catheter, tunneled catheter right upper chest. ABDOMEN: Generalized tenderness. No rebound or guarding. No distention. Peritoneal dialysis catheter in place. Suprapubic catheter. NEUROLOGIC: Diabetic neuropathy with muscular atrophy without any focal deficit. LABORATORY: Urinalysis is positive nitrite, 4+ blood, 1+ glucose, leukocyte esterase 2+, WBC greater than 50, many bacteria, many yeast. Sodium is 132, potassium 4.7, chloride 110, bicarb 13, BUN 55, creatinine 4.8, and glucose is 304. WBC 6.5, hemoglobin 9.5, hematocrit 29.8, and platelets is 146. A CT abdomen and pelvis, right ureteral stent in appropriate position. No hydronephrosis. Left renal pelvis with hydronephrosis. Prominent left ureteral without calculus. Diffuse chronic urinary bladder wall thickening. Increase right pelvic and inguinal lymphadenopathy. Stable splenomegaly. Chronic pancreatitis. Renal osteodystrophy. IMPRESSION: 1. Fever. Concerning regarding the dialysis catheter and peritoneal catheter at this time. Blood cultures still pending. 2. Recurrent and urinary bladder infection both bacteria and yeast. 3. Neurogenic urinary bladder, suprapubic catheter. 4. Chronic kidney disease with near end-stage renal disease, previously on dialysis. Chronic high potassium level controlled now with home medication. 5. Multiple chronic baseline problems including brittle diabetes type 1 with diabetic neuropathy. PLAN: Continue with antibiotics. Diflucan and meropenem. Consultation with Dr. Karimi, mixer operator hot metal and Dr. Ciro Blum, Infectious Disease for possible recommendation on catheter removal or not. Consultation with Dr. Castro Jalloh. The patient is on transplant list, but do not happen until his right nephrectomy as recommended. The patient does have recurrent urinary tract infection with the ureteral stent in place with recurrent stent exchange. MD SADA Haywood/NOREEN /[id number]
[2019-05-30] MEDS ORDERED: EPOETIN ALFA-EPBX 10,000 UNIT/ML VIAL SC ONE (15:30)
--- NOTE | 2019-05-30 16:17 | Consultation ---
DATE OF CONSULTATION: REASON FOR CONSULTATION: Fever, pain on the side. HISTORY OF PRESENT ILLNESS: This is a patient, who is 38-year-old male, who has history of end-stage renal disease on dialysis and has a right upper chest wall IV access for dialysis. He was recently in the hospital for about 10 days where he was diagnosed with UTI and received IV antibiotic for 10 days. He was discharged home. He refused to go home with any more antibiotic. The patient comes in with fever and chills and pain on the right side. The patient who does have history of hypertension, diabetes mellitus, neuropathy, end-stage renal disease on hemodialysis, history of UTI. LABORATORY DATA: His labs on admission, white count 6.4, hemoglobin 9.5. Sodium 132, potassium 4.2 with creatinine 4.83. He is currently on nifedipine and meropenem was started. The patient had a chest x-ray, which shows no acute pulmonary finding. The CAT scan of the pelvis was done, it showed right ureteral stent. No hydronephrosis. PHYSICAL EXAMINATION: GENERAL: He is currently alert, oriented, does not seem in acute distress. VITAL SIGNS: Stable. He had a T-max of 100.6 on admission. HEENT: Not icteric. NECK: Supple. CHEST: Clear. COR: S1 and S2. No S3, S4, or murmur. ABDOMEN: Soft. IMPRESSION: 1. Fever on admission, may be urinary tract infection. 2. History of colonization, multidrug resistant. 3. History of chronic kidney disease. Agree with meropenem. Agree with blood cultures. Further recommendations to follow. MD PIPPA Steel/NOREEN /[id number]
--- NOTE | 2019-05-30 16:17 | Consultation ---
DATE OF CONSULTATION: REASON FOR CONSULTATION: CKD, stage 5. HISTORY OF PRESENT ILLNESS: The patient is a 38-year-old male with past medical history of CKD stage 5, neurogenic bladder, diabetes type 1, peripheral neuropathy, hypertension, and anemia of CKD, was admitted with fever. The patient has history of right hydronephrosis and right ureteral stent, being followed by Dr. Jalloh as an outpatient. The patient was recently admitted and was discharged home with a peritoneal dialysis catheter and a right tunneled hemodialysis catheter. The patient's peritoneal dialysis catheter was flushed last week and the patient was supposed to get started on PD training on Thursday. The patient started having fever 2 days ago with some nausea and right lower quadrant abdominal pain. The patient came to the emergency room for further evaluation. The patient had a fever of 101. Blood and urine culture pending. ID has been consulted. Urology has seen the patient. Currently on meropenem. PAST MEDICAL HISTORY: As above. PAST SURGICAL HISTORY: PD catheter placement, suprapubic catheter due to neurogenic bladder, cataract surgery, cholecystectomy, and right knee surgery. REVIEW OF SYSTEMS: As per HPI. FAMILY HISTORY: Positive for hypertension and diabetes. ALLERGIES: IODINE AND P.O. CONTRAST. MEDICATIONS: Currently on insulin, morphine, nifedipine, Mag-Ox, sodium bicarbonate 650 mg p.o. twice a day, gabapentin, meropenem 500 mg IV q.8 hours, and fluconazole 100 mg p.o. daily. PHYSICAL EXAMINATION: VITAL SIGNS: Blood pressure 138/82, pulse is 76, respiration is 15, temperature 97.2, and 99% on room air. GENERAL: Awake and alert, oriented x3, not in distress. HEENT: PERRLA. Extraocular muscles intact. NECK: No elevated JVD. HEART: S1 and S2. LUNGS: Clear to auscultate bilaterally. ABDOMEN: Soft. Peritoneal dialysis catheter site; no secretion, no redness, no erythema, no tenderness. Right lower quadrant; mild tenderness to palpate, no rebound, no guarding. EXTREMITIES: No cyanosis, clubbing, or edema. NEUROLOGICAL: No focal deficit. No asterixis. SKIN: No new rash. LABORATORY DATA: Sodium 132, potassium 4.7, chloride 110, CO2 13, BUN 55, creatinine 4.85, and glucose 304. White count 4.65, hemoglobin 9.5, and platelet count is 146. Blood and urine culture pending. Chest x-ray done on admission, no acute cardiopulmonary process. CT abdomen and pelvis, right ureteral stent, diffuse chronic bladder wall thickening, chronic pancreatitis, renal osteodystrophy, and increase in right pelvic and inguinal lymphadenopathy. ASSESSMENT AND PLAN: 1. Chronic kidney disease, stage 5. No acute indication for hemodialysis or peritoneal dialysis. 2. Metabolic acidosis, which is non gap from chronic kidney disease. Continue with the p.o. bicarb. 3. Hypertension. 4. Diabetes type 2 per primary team. 5. Fever, cough. Followup on the blood and urine culture. PD catheter and the right tunneled hemodialysis catheter does not have any sign of infection. ID consulted. May need hemodialysis catheter removed prior to discharge. 6. Right hydronephrosis, status post right ureteral stent. Urology following. 7. Anemia of chronic kidney disease, give a dose of Epogen today. Thank you, Dr. Potts, for the consult. Mirta iWnters MD AFS/MODL /[id number]
--- NOTE | 2019-05-30 19:15 | NUR ---
Received patient awake, not in distress, call light within easy reach, advised to call anytime as needed. Will continue to monitor closely
--- NOTE | 2019-05-30 19:32 | NUR ---
PATIENT IN STABLE CONDITION WITH NO S/S OF RESPIRATORY DISTRESS. TELEMETRY APPLIED. PATIENT REFUSES BED ALARM. CALL LIGHT IS WITHIN REACH, PATIENT INSTRUCTED TO CALL FOR ASSISTANCE NEEDED. BEDSIDE SHIFT REPORT GIVEN TO ONCOMING NURSE.
[2019-05-31] VITALS (8 sets, daily range): BP systolic 87–133; BP diastolic 60–85
[2019-05-31] MEDS: MEROPENEM 500MG/ NS 50ML 50 ML IV SCH ×3 (02:26→22:24)
[2019-05-31] MEDS: MORPHINE SULFATE 2 MG/ML SYR 1ML IV PRN ×6 (03:55→23:35)
[2019-05-31] MEDS: ONDANSETRON HCL INJ 2MG/ML 2ML 2 MG/ML VIAL IV PRN ×2 (03:55→22:26)
[2019-05-31 06:25] LABS: BASOPHILS % 0.5 % (0.0-1.0); EOSINOPHILS # (AUTO) 0.1 (0.0-0.4); EOSINOPHILS % 3.2 % (0.0-6.0); HEMATOCRIT 27.3 % (38.2-49.6); HEMOGLOBIN 8.5 g/dL (14.0-18.0); LYMPHOCYTES # (AUTO) 1.3 (1.0-3.2); LYMPHOCYTES % 35.2 % (18.0-39.1); MEAN CORPUSCULAR HEMOGLOBIN 25.7 pg (28-32); MEAN CORPUSCULAR HGB CONC 31.1 g/dL (31-35); MEAN CORPUSCULAR VOLUME 82.5 fL (81-99); MONOCYTES # (AUTO) 0.4 (0.2-0.8); MONOCYTES % 9.4 % (4.4-11.3); NEUTROPHILS # (AUTO) 1.9 (2.1-6.9); NEUTROPHILS % 51.2 % (38.7-80.0); PLATELET COUNT 117 x10e3/uL (140-360); RED BLOOD COUNT 3.31 x10e6/uL (4.3-5.7); RED CELL DISTRIBUTION WIDTH 15.6 % (11.7-14.4)
[2019-05-31 06:46] LABS: ALBUMIN 2.3 g/dL (3.5-5.0); ALBUMIN/GLOBULIN RATIO 0.5 (0.8-2.0); ANION GAP 13.9 mmol/L (8-16); CALCIUM 7.5 mg/dL (8.4-10.2); CREATININE, SERUM 5.16 mg/dL (0.72-1.25)
--- NOTE | 2019-05-31 07:17 | NUR ---
bedside rounding done with dayshift RN, call light within reach
[2019-05-31 07:19] LABS: POTASSIUM 5.9 mmol/L (3.5-5.1)
[2019-05-31] MEDS: INSULIN LISPRO 100 UNIT/1 ML 3ML VIAL SQ SCH ×8 (07:30→22:26)
[2019-05-31] MEDS: FLUCONAZOLE 100 MG TAB PO SCH (08:33)
[2019-05-31] MEDS: NIFEDIPINE CR 30 MG TAB PO SCH ×2 (08:33→16:17)
[2019-05-31] MEDS: MAGNESIUM OXIDE 400 MG TAB PO SCH ×3 (08:33→22:24)
[2019-05-31] MEDS: GABAPENTIN 300 MG CAP PO SCH ×3 (08:33→22:24)
[2019-05-31] MEDS: SODIUM BICARBONATE 650 MG TAB PO SCH ×3 (08:34→22:24)
--- NOTE | 2019-05-31 14:25 | NUR ---
Patient's potassium is 5.9. This rewriter contacted Dr. Karimi at 1419 to let him know. Will continue to monitor. Will follow up with doctor. Addendum: 05/31/19 at 1532 by Maggy Magaña RN Dr. Arnett ordered 30 gm of Kayexalate NOW and to ensure patient was on a renal diet. Patient is on a renal diet. Patient was ordered Kayexalate and it will be administered ANA.
[2019-05-31] MEDS ORDERED: SOD POLYSTYRENE SULFONATE SUSP 15 GM/60 ML BTL PO SCH (16:00)
--- NOTE | 2019-05-31 16:44 | NUR ---
Dr. Karimi ordered hemodialysis to be done tomorrow. This internal communications writer called [facility] and scheduled the patient for dialysis tomorrow. Will report to oncoming shift.
[2019-05-31] MEDS ORDERED: EPOETIN ALFA-EPBX 10,000 UNIT/ML VIAL SC SCH (17:30)
[2019-06-01] VITALS (7 sets, daily range): BP systolic 105–157; BP diastolic 77–87
[2019-06-01] MEDS: MORPHINE SULFATE 2 MG/ML SYR 1ML IV PRN ×5 (05:45→22:38)
[2019-06-01 06:23] LABS: BASOPHILS % 0.9 % (0.0-1.0); EOSINOPHILS # (AUTO) 0.1 (0.0-0.4); HEMATOCRIT 29.9 % (38.2-49.6); HEMOGLOBIN 9.3 g/dL (14.0-18.0); LYMPHOCYTES # (AUTO) 0.5 (1.0-3.2); LYMPHOCYTES % 14.6 % (18.0-39.1); MEAN CORPUSCULAR HEMOGLOBIN 25.7 pg (28-32); MEAN CORPUSCULAR HGB CONC 31.1 g/dL (31-35); MEAN CORPUSCULAR VOLUME 82.6 fL (81-99); MONOCYTES # (AUTO) 0.3 (0.2-0.8); MONOCYTES % 8.9 % (4.4-11.3); NEUTROPHILS # (AUTO) 2.5 (2.1-6.9); NEUTROPHILS % 70.7 % (38.7-80.0); PLATELET COUNT 118 x10e3/uL (140-360); RED BLOOD COUNT 3.62 x10e6/uL (4.3-5.7); RED CELL DISTRIBUTION WIDTH 15.4 % (11.7-14.4)
[2019-06-01 06:57] LABS: ANION GAP 12.2 mmol/L (8-16); CALCIUM 7.2 mg/dL (8.4-10.2); CREATININE, SERUM 5.91 mg/dL (0.72-1.25); MAGNESIUM 1.7 MG/DL (1.3-2.1); PHOSPHORUS 5.1 MG/DL (2.3-4.7); POTASSIUM 5.2 mmol/L (3.5-5.1)
[2019-06-01] MEDS: INSULIN LISPRO 100 UNIT/1 ML 3ML VIAL SQ SCH ×6 (07:30→21:00)
[2019-06-01] MEDS: MEROPENEM 500MG/ NS 50ML 50 ML IV SCH ×2 (08:42→21:00)
[2019-06-01] MEDS: MAGNESIUM OXIDE 400 MG TAB PO SCH ×3 (08:43→21:00)
[2019-06-01] MEDS: SODIUM BICARBONATE 650 MG TAB PO SCH ×3 (08:43→21:00)
[2019-06-01] MEDS: NIFEDIPINE CR 30 MG TAB PO SCH ×2 (08:43→17:10)
[2019-06-01] MEDS: FLUCONAZOLE 100 MG TAB PO SCH (08:43)
[2019-06-01] MEDS: GABAPENTIN 100 MG CAP PO SCH ×3 (09:52→21:00)
[2019-06-01] MEDS ORDERED: SODIUM CHLORIDE 0.9% 1000ML 2,000 ML ONE (11:12)
[2019-06-01] MEDS: ONDANSETRON HCL INJ 2MG/ML 2ML 2 MG/ML VIAL IV PRN ×3 (11:16→22:10)
--- NOTE | 2019-06-01 11:16 | NUR ---
DIALYSIS NURSE PRESENT AT BEDSIDE INITIATING HEMODIALYSIS TX. PT AAOX3. ACYANOTIC. RESTING IN BED. NO DISTRESS NOTED.
[2019-06-01] MEDS ORDERED: PROMETHAZINE 12.5MG/ NACL 0.9% 12.5 MG/50 ML BAG IV PRN (16:00)
[2019-06-01] MEDS ORDERED: PROMETHAZINE 12.5MG/ NACL 0.9% 50 ML IV PRN (16:00)
[2019-06-01] MEDS ORDERED: SODIUM CHLORIDE 0.9% 1000ML 2,000 ML IV PRN (17:00)
[2019-06-01] MEDS ORDERED: SODIUM CHLORIDE 0.9% 250ML 500 ML IV PRN (17:00)
[2019-06-01] MEDS ORDERED: HEPARIN SOD (PORCINE) 1000 UNIT/ML SDV IV PRN (17:00)
[2019-06-01] MEDS: METOCLOPRAMIDE HCL 10 MG TAB PO SCH (17:10)
--- NOTE | 2019-06-01 19:15 | NUR ---
Patient visited in room during nursing rounds. Patient alert and oriented x3. Ambulatory with use of walker in room prn. Suprapubic catheter in place. Pt has chronic RLQ abd pain and is being medicated accordingly. On scheduled IV antibiotics. Pt has access for peritoneal dialysis but no scheduled session at this time. Call north within reach.
[2019-06-02] VITALS (10 sets, daily range): BP systolic 106–133; BP diastolic 66–84
[2019-06-02] MEDS: ONDANSETRON HCL INJ 2MG/ML 2ML 2 MG/ML VIAL IV PRN ×5 (03:17→20:25)
[2019-06-02] MEDS: MORPHINE SULFATE 2 MG/ML SYR 1ML IV PRN ×5 (03:17→20:25)
[2019-06-02] MEDS: INSULIN LISPRO 100 UNIT/1 ML 3ML VIAL SQ SCH ×7 (07:30→21:30)
[2019-06-02] MEDS: GABAPENTIN 100 MG CAP PO SCH ×3 (08:13→20:00)
[2019-06-02] MEDS: FLUCONAZOLE 100 MG TAB PO SCH (08:13)
[2019-06-02] MEDS: METOCLOPRAMIDE HCL 10 MG TAB PO SCH ×3 (08:13→16:20)
[2019-06-02] MEDS: MAGNESIUM OXIDE 400 MG TAB PO SCH ×3 (08:13→20:00)
[2019-06-02] MEDS: MEROPENEM 500MG/ NS 50ML 50 ML IV SCH ×2 (08:13→20:00)
[2019-06-02] MEDS: SODIUM BICARBONATE 650 MG TAB PO SCH ×3 (08:14→20:00)
[2019-06-02] MEDS: NIFEDIPINE CR 30 MG TAB PO SCH ×2 (08:14→16:57)
--- NOTE | 2019-06-02 11:05 | NUR ---
Pt. expressed no spiritual or emotional concerns at this time. Privacy Officer provided hospitality and information on how to reach insurance job titles, if needed. No need to follow at this time. MIHAELA RENEE Privacy Officer Spiritual Care Department O: [phone]
[2019-06-02 12:36] LABS: INR 1.15; PROTHROMBIN TIME 15.4 seconds (11.9-14.5)
[2019-06-02] MEDS ORDERED: MIDAZOLAM HCL 2 MG/2 ML VIAL ONE (13:23)
[2019-06-02] MEDS ORDERED: FENTANYL CITRATE/PF 100MCG/2 ML INJ ONE (13:23)
[2019-06-02] MEDS ORDERED: LIDOCAINE HCL 1% LOCAL INJ 20 ML VIAL ONE (13:35)
[2019-06-02] MEDS ORDERED: SODIUM CHLORIDE 0.9% 250ML 250 ML ONE ×2 (13:35→20:15)
[2019-06-02] MEDS ORDERED: ONDANSETRON HCL INJ 2MG/ML 2ML 2 MG/ML VIAL ONE (13:54)
--- NOTE | 2019-06-02 15:31 | NUR ---
ARRIVED TO UNIT VIA WHEELCHAIR AT APPROXIMATELY 1528. AAOX3. ACYANOTIC. RESTING IN BED. NO DISTRESS NOTED.
--- NOTE | 2019-06-02 15:56 | Diagnostic Imaging Report ---
Procedures: 1. Tunneled central line placement 2. Tunneled dialysis catheter removal. History: Need for long-term IV antibiotics. Modality: Sonography and fluoroscopy. Sedation: fentanyl 50 mcg was given intravenously for conscious sedation. Vital signs were monitored throughout the procedure by a nurse, and remained stable. Physician intra-service time was 30. Commissary Worker: Gen Atnhony MD. Medical Practice Administrator: None. Approach: Left internal jugular vein Estimated blood loss: < 5 cc. Specimen: None. Fluoroscopy Time: 4.8 min. Dose (Ka,r): 33.4 mGy. Technique: Informed written consent was obtained. Discussion of risks, benefits, and alternatives were made with the patient. The patient expressed understanding and agreed to proceed. All elements maximal sterile barrier technique was utilized for this procedure, including utilization of sterile scrub solution for skin prep, a large sterile sheet to cover the areas of the patient that were not prepped, and hand hygiene, mask, head covering, and sterile gown for performing radiologist and scrub technologist. The skin was anesthetized with 2% lidocaine.Ultrasound evaluation showed a patent and compressible left internal jugular vein vein, which was punctured under direct real-time ultrasound guidance with a micropuncture needle. An ultrasound image was saved to PACS. A 0.018 inch wire was placed through the needle into the IVC. A 6 [place] peel-away sheath was placed. A subcutaneous tunnel was created in the left anterior chest wall by blunt dissection. A 6 [place] dual-lumen tunneled central line was brought through the tunnel and the catheter was advanced through the sheath, with its distal tip terminating at the cavoatrial junction. The peel-away sheath was removed. The ports were flushed and aspirated easily following placement. The catheter was sutured to the skin with 2-0 silk to secure its placement. The small jugular incision site was closed using resorbable suture. Next, the right chest was prepped and draped in sterile fashion. The indwelling tunneled dialysis catheter was removed with gentle traction and blunt dissection. Hemostasis was achieved with manual compression. A sterile dressing was applied. Vital signs were monitored throughout the procedure by a nurse, and remained stable. The patient tolerated the procedure well and left the department in the same condition Impression: Successful, uncomplicated placement of a left internal jugular tunneled central line using sonographic and fluoroscopic guidance. Successful, uncomplicated right internal jugular tunneled dialysis catheter removal. Signed by: Dr. Gen Anthony MD on 06/02/2019 3:52 PM
--- NOTE | 2019-06-02 18:24 | NUR ---
ATTEMPTED TO NOTIFY CASE MANAGEMENT AT APPROXIMATELY 1730 OF PATIENT'S CVC AND INQUIRE ABOUT THE SET UP OF OUTPATIENT ANTIBIOTIC TREATMENT PER DR LLOYD ORDER. CASE MANAGEMENT NOT REACHABLE AT THIS TIME.
--- NOTE | 2019-06-02 19:15 | NUR ---
Patient visited in room during nursing rounds. Patient alert and oriented x3. Ambulatory with use of walker in room prn. Suprapubic catheter in place. Pt has chronic RLQ abd pain and is being medicated accordingly. On scheduled IV antibiotics. Pt has access for peritoneal dialysis but no scheduled session at this time. Temporary dialysis catheter was removed today from right upper chest site. New central line place on left upper chest today. Call north within reach.
[2019-06-03] VITALS: BP 125/78
[2019-06-03] MEDS: ONDANSETRON HCL INJ 2MG/ML 2ML 2 MG/ML VIAL IV PRN ×4 (00:40→13:44)
[2019-06-03] MEDS: MORPHINE SULFATE 2 MG/ML SYR 1ML IV PRN ×4 (00:40→13:44)
[2019-06-03 04:00] VITALS: BP 145/86
--- NOTE | 2019-06-03 07:06 | NUR ---
bedside shift report received from PM nurse. pt laying in bed, semi fowlers, awake, alert, oriented, no signs of distress. will continue to monitor.
[2019-06-03] MEDS: INSULIN LISPRO 100 UNIT/1 ML 3ML VIAL SQ SCH ×6 (07:30→16:30)
[2019-06-03 07:52] VITALS: BP 131/84
[2019-06-03] MEDS: METOCLOPRAMIDE HCL 10 MG TAB PO SCH ×2 (08:00→12:01)
[2019-06-03 08:16] VITALS: BP 131/84
[2019-06-03] MEDS: MEROPENEM 500MG/ NS 50ML 50 ML IV SCH (09:36)
[2019-06-03] MEDS: FLUCONAZOLE 100 MG TAB PO SCH (09:46)
[2019-06-03] MEDS: MAGNESIUM OXIDE 400 MG TAB PO SCH ×2 (09:46→13:51)
[2019-06-03] MEDS: GABAPENTIN 100 MG CAP PO SCH ×2 (09:46→13:52)
[2019-06-03] MEDS: NIFEDIPINE CR 30 MG TAB PO SCH ×2 (09:47→13:52)
[2019-06-03] MEDS: SODIUM BICARBONATE 650 MG TAB PO SCH ×2 (09:47→13:52)
[2019-06-03 11:04] VITALS: BP 131/84
[2019-06-03] MEDS ORDERED: DIFLUCAN100 MG PO (16:06)
[2019-06-03 16:13] VITALS: BP 128/83
--- NOTE | 2019-06-03 19:46 | Discharge Summary ---
CONSULTANTS: 1. Dr. Lew Karimi. 2. Dr. Castro Jalloh. 3. Dr. Ciro Blum. FINAL DIAGNOSES: 1. Recurrent complicated urinary bladder infection, secondary to right hydronephrosis and ureteral stent, also suprapubic catheter. 2. End-stage renal disease, required dialysis. 3. Electrolyte disorder, corrected. 4. Pancytopenia, improving. 5. Resolved fever. 6. Right lower quadrant abdominal pain, most likely combination of infection catheters and also right hydronephrosis. SUMMARY: This is a 38-year-old male, complicated diabetes type 1 with severe neuropathy urinary bladder, neurogenic urinary bladder with recurrent infections, suprapubic catheter. He has right atrophy kidney with obstruction, has stent in there. The patient has end-stage renal disease, completed on dialysis, now pending for peritoneal dialysis. The patient abdominal pain, most likely combination of multifactorial. The patient has a left upper chest catheter now. He will receive IV antibiotic with Dr. Blum on Thursday. The patient is otherwise, stable at this time. He will resume his home medication on discharge. He will be on antibiotic for two weeks and then afterwards we may then need a radical right nephrectomy. The patient is on a transplant list and until his infection completely resolved, and his right kidney is removed. The patient will continue to be awaiting for his transplant for the future. The patient is otherwise, stable. We will discharge home today. Resume home medication. MD SADA Haywood/NOREEN /[id number]
== END 2019-06-03 17:47 | disposition home or self-care (01) | DRG 698 ==
LOC: ER 00:19 → ERHOLD 02:39 → MED/SURG3 03:27
PROVIDERS: ADMIT Internal Medicine; ATTEND Internal Medicine
PROC: 0JH60XZ Insertion of Tunneled Vascular Access Device into Chest Subcutaneous Tissue and Fascia, Open Approach (ICD-10-PCS; principal; 2019-06-02)
PROC: 0JPT0XZ Removal of Tunneled Vascular Access Device from Trunk Subcutaneous Tissue and Fascia, Open Approach (ICD-10-PCS; 2019-06-02)
PROC: 02HV33Z Insertion of Infusion Device into Superior Vena Cava, Percutaneous Approach (ICD-10-PCS; 2019-06-02)
PROC: B548ZZA Ultrasonography of Superior Vena Cava, Guidance (ICD-10-PCS; 2019-06-02)
DX: T83.511A Infection and inflammatory reaction due to indwelling urethral catheter, initial encounter (principal); N18.6 End stage renal disease; K86.1 Other chronic pancreatitis; N13.30 Unspecified hydronephrosis; E87.2 Acidosis; D61.818 Other pancytopenia; B37.41 Candidal cystitis and urethritis; N30.21 Other chronic cystitis with hematuria; Z99.2 Dependence on renal dialysis; N25.0 Renal osteodystrophy; R59.1 Generalized enlarged lymph nodes; N31.9 Neuromuscular dysfunction of bladder, unspecified; E10.69 Type 1 diabetes mellitus with other specified complication; E10.42 Type 1 diabetes mellitus with diabetic polyneuropathy; Z79.4 Long term (current) use of insulin; Z91.041 Radiographic dye allergy status; Z96.0 Presence of urogenital implants; R53.81 Other malaise; Z83.3 Family history of diabetes mellitus; Z82.49 Family history of ischemic heart disease and other diseases of the circulatory system; D63.1 Anemia in chronic kidney disease
CPT/HCPCS: 36415; 36558; 71045; 74176; 74470; 76937; 77001; 80048; 80053; 81001; 82948; 83605; 83735; 84100; 85025; 85610; 87040; 87086; 87186; 87340; 96372; 99284; J1642; J1817; J2001; J2185; J2250; J2270; J2405; J3010; J7030; J7050

== ENCOUNTER 2019-06-09 03:55 | Emergency (ER) | payer BC ==
[~2019-06-09] VITALS: Ht 180.3 cm; Wt 89.8 kg
[2019-06-09] MEDS ORDERED: HYDROCODONE/APAP 5MG-325MG TAB PO ONE (04:30)
[2019-06-09 05:07] LABS: BASOPHILS % 0.7 % (0.0-1.0); EOSINOPHILS # (AUTO) 0.3 (0.0-0.4); EOSINOPHILS % 4.1 % (0.0-6.0); HEMATOCRIT 29.7 % (38.2-49.6); HEMOGLOBIN 9.3 g/dL (14.0-18.0); LYMPHOCYTES # (AUTO) 1.2 (1.0-3.2); LYMPHOCYTES % 18.7 % (18.0-39.1); MEAN CORPUSCULAR HEMOGLOBIN 25.6 pg (28-32); MEAN CORPUSCULAR HGB CONC 31.3 g/dL (31-35); MEAN CORPUSCULAR VOLUME 81.8 fL (81-99); MONOCYTES # (AUTO) 0.4 (0.2-0.8); MONOCYTES % 6.2 % (4.4-11.3); NEUTROPHILS # (AUTO) 4.2 (2.1-6.9); NEUTROPHILS % 68.2 % (38.7-80.0); PLATELET COUNT 141 x10e3/uL (140-360); RED BLOOD COUNT 3.63 x10e6/uL (4.3-5.7)
[2019-06-09 05:21] LABS: ALBUMIN 2.7 g/dL (3.5-5.0); ALBUMIN/GLOBULIN RATIO 0.5 (0.8-2.0); CALCIUM 7.6 mg/dL (8.4-10.2); CREATININE, SERUM 5.13 mg/dL (0.72-1.25)
--- NOTE | 2019-06-09 05:39 | Diagnostic Imaging Report ---
EXAM: Abdomen Radiograph 1 View(s) INDICATION: back pain, has stent to right ureter, has peritonial cath ^Y COMPARISON: Abdominal CT 05/30/2019 FINDINGS: No abnormalities in the lower chest. Right internal nephroureteral catheter with proximal and distal coils in the expected location of the right renal pelvis and urinary bladder respectively. Peritoneum catheter coils within the mid pelvis. Superior approach central venous catheter tip in the superior aspect of the right atrium. Cholecystectomy clips. Calcifications in the right upper central abdomen are pancreatic parenchymal as seen on abdominal CT 05/30/2019. Urinary bladder and the pubic Barcenas catheter tip projects within the mid pelvis. Normal volume of stool in the colon. No dilated loops of small bowel. No abnormal soft tissue masses. No pneumoperitoneum. No acute osseous abnormality. IMPRESSION: Lines, tubes, and chronic findings as above. No acute radiographic abdominal abnormality. Signed by: Abelino Jansen DO on 06/09/2019 5:36 AM
[2019-06-09 05:47] LABS: AMYLASE 41 U/L (25-125); LIPASE 15 U/L (8-78)
[2019-06-09 05:54] LABS: CLARITY,URINE CLOUDY (CLEAR); COLOR,URINE YELLOW (YELLOW)
[2019-06-09 05:55] LABS: BILIRUBIN,URINE NEGATIVE (NEGATIVE); KETONES,URINE NEGATIVE (NEGATIVE); LEUKOCYTE ESTERASE ,URINE MODERATE (NEGATIVE); NITRITE,URINE NEGATIVE (NEGATIVE); PROTEIN,URINE DIPSTICK >=300 (NEGATIVE); URINE UROBILINOGEN 0.2 mg/dL (0.2 - 1)
[2019-06-09 06:13] LABS: BACTERIA,URINE FEW /HPF; EPITHELIAL CELLS,URINE FEW /LPF; WBC,URINE (MAN) >50 /HPF (0-5)
== END 2019-06-09 06:51 | disposition home or self-care (01) ==
LOC: ER 03:55
DX: M54.5 Low back pain (principal); N30.91 Cystitis, unspecified with hematuria; I12.9 Hypertensive chronic kidney disease with stage 1 through stage 4 chronic kidney disease, or unspecified chronic kidney disease; E11.22 Type 2 diabetes mellitus with diabetic chronic kidney disease; N18.9 Chronic kidney disease, unspecified; D64.9 Anemia, unspecified
CPT/HCPCS: 36415; 74018; 80053; 81001; 82150; 83690; 85025; 87086; 99284

== ENCOUNTER 2019-06-12 11:02 | Inpatient (IN) | payer BC ==
[~2019-06-12] VITALS: Ht 180.3 cm; Wt 95.3 kg
[2019-06-12] MEDS ORDERED: ONDANSETRON HCL INJ 2MG/ML 2ML 2 MG/ML VIAL IV NR (11:10)
--- NOTE | 2019-06-12 12:18 | Diagnostic Imaging Report ---
EXAMINATION: CHEST SINGLE (PORTABLE) COMPARISON: Chest x-ray 05/30/2019 INDICATION: Pain. DISCUSSION: HEART AND MEDIASTINUM: The heart is normal in size. LINES: Left tunneled venous catheter with distal tip projected on the cavoatrial junction has been placed. Right sided dialysis catheter has been removed. LUNGS: The lungs are well inflated and clear. No pneumonia or pulmonary edema. PLEURA: No pleural effusion or pneumothorax. BONES AND SOFT TISSUES: No focal osseous lesion. The soft tissues are normal. IMPRESSION: No acute thoracic abnormality. Signed by: Dr. Arturo Humphrey M.D. on 06/12/2019 12:15 PM
[2019-06-12] MEDS ORDERED: MORPHINE SULFATE INJ 4 MG/ML INJ 1ML IV PRN (12:30)
[2019-06-12 12:32] LABS: BASOPHILS % 0.5 % (0.0-1.0); EOSINOPHILS # (AUTO) 0.2 (0.0-0.4); EOSINOPHILS % 3.3 % (0.0-6.0); HEMATOCRIT 32.1 % (38.2-49.6); HEMOGLOBIN 10.2 g/dL (14.0-18.0); LYMPHOCYTES # (AUTO) 1.1 (1.0-3.2); MEAN CORPUSCULAR HEMOGLOBIN 25.4 pg (28-32); MEAN CORPUSCULAR HGB CONC 31.8 g/dL (31-35); MONOCYTES # (AUTO) 0.3 (0.2-0.8); MONOCYTES % 4.9 % (4.4-11.3); NEUTROPHILS # (AUTO) 4.6 (2.1-6.9); PLATELET COUNT 154 x10e3/uL (140-360); RED BLOOD COUNT 4.01 x10e6/uL (4.3-5.7); RED CELL DISTRIBUTION WIDTH 15.6 % (11.7-14.4)
[2019-06-12 12:42] LABS: BACTERIA,URINE MANY /HPF; BILIRUBIN,URINE NEGATIVE (NEGATIVE); CLARITY,URINE TURBID (CLEAR); COLOR,URINE YELLOW (YELLOW); EPITHELIAL CELLS,URINE RARE /LPF; KETONES,URINE TRACE (NEGATIVE); LEUKOCYTE ESTERASE ,URINE 1+ (NEGATIVE); MUCUS,URINE FEW (RARE); NITRITE,URINE NEGATIVE (NEGATIVE); PROTEIN,URINE DIPSTICK >=300 (NEGATIVE); URINE UROBILINOGEN 0.2 mg/dL (0.2 - 1); WBC,URINE (MAN) 21-50 /HPF (0-5)
[2019-06-12 12:55] LABS: ALANINE AMINOTRANSFERASE 10 IU/L (0-55); ALBUMIN 2.7 g/dL (3.5-5.0); ALBUMIN/GLOBULIN RATIO 0.5 (0.8-2.0); ALKALINE PHOSPHATASE 243 IU/L (40-150); ANION GAP 12.9 mmol/L (8-16); BLOOD UREA NITROGEN 42 mg/dL (7-26); BUN/CREATININE RATIO 9 (6-25); CALCIUM 7.1 mg/dL (8.4-10.2); CARBON DIOXIDE 20 mmol/L (22-29); CHLORIDE 109 mmol/L (98-107); CREATINE KINASE 65 IU/L (30-200); CREATININE, SERUM 4.83 mg/dL (0.72-1.25); EST GLOMERULAR FILTRATION RATE 14 ML/MIN (60-); GLUCOSE 154 mg/dL (74-118); LIPASE 14 U/L (8-78); POTASSIUM 4.9 mmol/L (3.5-5.1); SODIUM 137 mmol/L (136-145)
[2019-06-12] MEDS ORDERED: SODIUM CHLORIDE FLUSH 10 ML SYR INJ PRN (13:15)
[2019-06-12] MEDS ORDERED: MORPHINE SULFATE 2 MG/ML SYR 1ML IV PRN (13:15)
[2019-06-12] MEDS ORDERED: DEXTROSE 50% SYRINGE 50 ML IV PRN (13:45)
[2019-06-12] MEDS: CEFTRIAXONE SOD 1 GM/NS 50 ML 50 ML IV SCH (14:23)
[2019-06-12] MEDS: MORPHINE SULFATE INJ 4 MG/ML INJ 1ML IV PRN ×2 (15:30→20:17)
[2019-06-12] MEDS: ONDANSETRON HCL INJ 2MG/ML 2ML 2 MG/ML VIAL IV PRN ×2 (15:30→20:08)
--- NOTE | 2019-06-12 16:18 | NUR ---
RECEIVED PATIENT FROM ER. PATIENT A/O X3, EVEN RESPIRATIONS ON RA. LUNG SOUNDS CLEAR. LEFT SUBCLAVIAN DOUBLE LUMEN IN PLACE. SUPRAPUBIC CATHETER PRESENT ON ADMISSION. PERITONEAL ACCESS PRESENT TO ABDOMEN. TELEMETRY #1 SR. PATIENT AMBULATES WITH CRUTCHES. DENIES PAIN AT THIS TIME. CONSULTS CALLED AND MADE AWARE OF PATIENT ADMISSION. NEW ORDERS IMPLEMENTED. CALL LIGHT IN REACH WILL CONTINUE TO MONITOR PATIENT.
[2019-06-12] MEDS: INSULIN REGULAR, HUMAN 100 UNIT/1 ML 3ML VIAL SQ SCH ×2 (16:30→21:00)
[2019-06-12] MEDS ORDERED: FUROSEMIDE 40 MG TAB PO PRN (17:00)
[2019-06-12 17:11] VITALS: BP 176/104
[2019-06-12 17:15] VITALS: BP 176/104
[2019-06-12] MEDS ORDERED: PEG (High)/E-LYTE SOLN 4,000 ML BTL PO ONE (17:15)
[2019-06-12 17:43] VITALS: BP 176/104
[2019-06-12] MEDS: NIFEDIPINE CR 30 MG TAB PO SCH (18:04)
--- NOTE | 2019-06-12 18:12 | NUR ---
CALL PLACED TO [facility]. NOTIFIED THEM THAT PATIENT WILL NEED PERITONEAL DIALYSIS TONIGHT.
--- NOTE | 2019-06-12 19:15 | NUR ---
BEDSIDE SHIFT REPORT RECEIVED FROM DAY RN. PT IS ALERT AND ORIENTED X3. RESPIRATIONS ARE EVEN AND UNLABORED. TELE ON. SUBCLAVIAN LINE PATENT WITH HEALTHY SITE. SP CATHETER TO GRAVITY. PERITONEAL CATH INTACT. PT TO RECEIVE PERITONEAL DIALYSIS TONIGHT. PT RESTING IN SEMIFOWLERS POSITION WATCHING TV. CALL LIGHT WITHIN REACH. BED IN LOW POSITION.
[2019-06-12 20:00] VITALS: BP 184/118
[2019-06-12 21:00] VITALS: BP 184/118
[2019-06-12] MEDS ORDERED: MAGNESIUM OXIDE PO SCH (21:00)
--- NOTE | 2019-06-12 22:20 | Consultation ---
DATE OF CONSULTATION: 06/12/2019 Renal Consult REASON FOR CONSULT: ESRD. HISTORY OF PRESENT ILLNESS: This is a 38-year-old male with end-stage renal disease, on peritoneal dialysis, who has been admitted for nephrectomy. PAST MEDICAL HISTORY: Include: 1. ESRD. 2. Neurogenic bladder. 3. Type 1 diabetes mellitus. 4. Peripheral neuropathy. 5. Hypertension. 6. Anemia of chronic disease. 7. Diabetic retinopathy. 8. Recurrent UTIs. 9. History of right hydronephrosis and right ureteral stent being followed by Dr. Jalloh. 10. Recurrent nausea and vomiting. FAMILY HISTORY: Hypertension, diabetes. PAST SURGICAL HISTORY: Includes: 1. PD catheter placement. 2. Suprapubic catheter due to neurogenic bladder. 3. Cataract surgery. 4. Cholecystectomy. 5. Right knee surgery. HOME MEDICATIONS: Reviewed. ALLERGIES: IODINE AND P.O. CONTRAST. REVIEW OF SYSTEMS: Positive nausea, positive vomiting. Denies any shortness of breath, chest pain, blood in the stool, or blood in the urine. No sensory loss or motor loss. No skin changes. Basically otherwise negative. PHYSICAL EXAMINATION: GENERAL: Alert, following commands. HEENT: Pupils are equal, reactive to light and accommodation. NECK: No JVD. No bruit. LUNGS: No rhonchi. No rales. HEART: Regular rate and rhythm. No S3, no S4. ABDOMEN: Nontender, nondistended. No hepatomegaly or splenomegaly. EXTREMITIES: No clubbing, cyanosis, or edema. NEUROLOGIC: Cranial nerves 2 through 12 are grossly intact. Sensation intact. NEUROLOGICAL: Basically negative. No changes from previous admission. VITAL SIGNS: Current vitals, temperature 97.1, blood pressure 176/104. LABORATORY DATA: White count 6.3, hemoglobin 10.2, hematocrit 32. Sodium 136, potassium 4.9, chloride 109, BUN 42, creatinine 4.8. AST 11. ASSESSMENT AND PLAN: 1. End stage renal disease. We will restart peritoneal dialysis. 2. Anemia of chronic disease. We will restart Epogen. The patient is a [employer]. 3. The patient has neurogenic bladder, multiple infections. The patient is scheduled for nephrectomy. 4. Malnutrition. 5. Type 1 diabetes mellitus. Monitor his glucose. 6. Hypertension. For now, we added clonidine p.r.n., but we might need to increase his medications. Maciel Chau MD MA/NOREEN /[id number]
[2019-06-12] MEDS: CLONIDINE HCL 0.1 MG TAB PO PRN (22:50)
[2019-06-12] MEDS: GABAPENTIN 300 MG CAP PO SCH (22:51)
--- NOTE | 2019-06-12 23:00 | NUR ---
b/p [id number]. pain med given but did not decrease b/p. dr correia here new order received for catapress prn b/p systolic greater than 180 and dyastolic greater than 95. B/p decrease after med to 153/93. will continue to monitor b/p.
--- NOTE | 2019-06-12 23:10 | NUR ---
dr yanes called pt not taking golytely. pt receiving peritoneal dialysis now. no new laxative orders given.
[2019-06-13] VITALS (11 sets, daily range): BP systolic 85–176; BP diastolic 56–95
[2019-06-13] MEDS ORDERED: SODIUM CHLORIDE 0.9% 250ML 250 ML ONE (01:16)
[2019-06-13] MEDS: ONDANSETRON HCL INJ 2MG/ML 2ML 2 MG/ML VIAL IV PRN ×3 (01:24→12:40)
[2019-06-13] MEDS: MORPHINE SULFATE INJ 4 MG/ML INJ 1ML IV PRN ×2 (01:30→07:14)
[2019-06-13] MEDS: CEFTRIAXONE SOD 1 GM/NS 50 ML 50 ML IV SCH (01:33)
[2019-06-13 05:47] LABS: BASOPHILS % 0.7 % (0.0-1.0); EOSINOPHILS # (AUTO) 0.3 (0.0-0.4); EOSINOPHILS % 6.1 % (0.0-6.0); HEMATOCRIT 31.9 % (38.2-49.6); HEMOGLOBIN 9.7 g/dL (14.0-18.0); LYMPHOCYTES # (AUTO) 1.6 (1.0-3.2); LYMPHOCYTES % 38.2 % (18.0-39.1); MEAN CORPUSCULAR HEMOGLOBIN 24.9 pg (28-32); MEAN CORPUSCULAR HGB CONC 30.4 g/dL (31-35); MONOCYTES # (AUTO) 0.3 (0.2-0.8); MONOCYTES % 6.8 % (4.4-11.3); PLATELET COUNT 131 x10e3/uL (140-360); RED BLOOD COUNT 3.89 x10e6/uL (4.3-5.7); RED CELL DISTRIBUTION WIDTH 15.9 % (11.7-14.4)
[2019-06-13 06:09] LABS: ALBUMIN 2.5 g/dL (3.5-5.0); ALBUMIN/GLOBULIN RATIO 0.5 (0.8-2.0); ANION GAP 12.5 mmol/L (8-16); CALCIUM 7.6 mg/dL (8.4-10.2); CREATININE, SERUM 4.64 mg/dL (0.72-1.25); POTASSIUM 4.5 mmol/L (3.5-5.1)
--- NOTE | 2019-06-13 07:14 | NUR ---
bedside change of shift report received from PRUDENCE Marquez. pt awake, alert, in stable condition. will continue to monitor.
[2019-06-13] MEDS: INSULIN REGULAR, HUMAN 100 UNIT/1 ML 3ML VIAL SQ SCH ×4 (07:30→21:00)
[2019-06-13] MEDS: GABAPENTIN 300 MG CAP PO SCH ×3 (08:12→21:00)
[2019-06-13] MEDS: NIFEDIPINE CR 30 MG TAB PO SCH ×2 (08:12→17:00)
[2019-06-13] MEDS ORDERED: EPOETIN ALFA-EPBX 10,000 UNIT/ML VIAL SC SCH (09:00)
--- NOTE | 2019-06-13 11:56 | NUR ---
pt c/o nausea, vomited X1 minimal amount of clear fluid. pt awake, alert, oriented X3, sitting up in bed; requesting a couple ice chips. will continue to monitor.
[2019-06-13] MEDS: MEROPENEM 500MG/ NS 50ML 50 ML IV SCH (12:34)
--- NOTE | 2019-06-13 12:46 | NUR ---
pt being transported to OR for surgery. Pt awake, alert, oriented, left in stable condition.
[2019-06-13] MEDS ORDERED: MICROFIBRILLER COLLAGEN HEMOSTAT 1 GM POWDER TP ONE (15:55)
[2019-06-13] MEDS ORDERED: ACETAMINOPHEN 1000 MG/100 ML IV PRN (16:45)
[2019-06-13] MEDS ORDERED: DIPHENHYDRAMINE HCL INJ 50 MG/ML VIAL IM PRN (16:45)
[2019-06-13] MEDS ORDERED: NALOXONE HCL INJ 0.4 MG/ML AMP IV PRN (16:45)
[2019-06-13] MEDS ORDERED: MORPHINE SULFATE 1 MG/ML 30ML PCA IV PRN (16:45)
[2019-06-13] MEDS ORDERED: ONDANSETRON HCL INJ 2MG/ML 2ML 2 MG/ML VIAL IV PRN (16:45)
--- NOTE | 2019-06-13 17:14 | Diagnostic Imaging Report ---
EXAMINATION: CHEST SINGLE (PORTABLE) INDICATION: Postoperative COMPARISON: Chest radiograph 06/12/2019 FINDINGS: LINES/TUBES:EKG leads overlie the chest.. Enteric tube projects below the diaphragm with tip not visualized. Left IJ tunneled central venous catheter unchanged. LUNGS:The lungs are moderately inflated. No focal consolidation or pulmonary edema. PLEURA:No pleural effusion or pneumothorax. MEDIASTINUM:The cardiomediastinal silhouette appears normal in size and shape. BONES/SOFT TISSUES:No acute osseous injury. ABDOMEN:Pneumoperitoneum. IMPRESSION: Postoperative pneumoperitoneum. No pneumothorax. No focal pneumonia or pulmonary edema. Signed by: Imtiaz Manzo MD on 06/13/2019 5:11 PM
[2019-06-13] MEDS ORDERED: MORPHINE SULFATE INJ 4 MG/ML INJ 1ML ONE (17:16)
[2019-06-13] MEDS ORDERED: FENTANYL CITRATE/PF 100MCG/2 ML INJ ONE ×2 (17:34→19:56)
[2019-06-13 17:41] LABS: BASOPHILS % 0.1 % (0.0-1.0); EOSINOPHILS % 0.2 % (0.0-6.0); HEMATOCRIT 33.9 % (38.2-49.6); HEMOGLOBIN 10.6 g/dL (14.0-18.0); LYMPHOCYTES # (AUTO) 0.6 (1.0-3.2); LYMPHOCYTES % 6.8 % (18.0-39.1); MEAN CORPUSCULAR HEMOGLOBIN 25.5 pg (28-32); MEAN CORPUSCULAR HGB CONC 31.3 g/dL (31-35); MEAN CORPUSCULAR VOLUME 81.7 fL (81-99); MONOCYTES # (AUTO) 0.1 (0.2-0.8); MONOCYTES % 1.6 % (4.4-11.3); NEUTROPHILS # (AUTO) 7.5 (2.1-6.9); NEUTROPHILS % 90.6 % (38.7-80.0); PLATELET COUNT 137 x10e3/uL (140-360); RED BLOOD COUNT 4.15 x10e6/uL (4.3-5.7); RED CELL DISTRIBUTION WIDTH 16.2 % (11.7-14.4)
[2019-06-13] MEDS ORDERED: MORPHINE SULFATE 1 MG/ML 30ML PCA ONE ×2 (17:45→18:40)
[2019-06-13 17:57] LABS: ANION GAP 12.5 mmol/L (8-16); CREATININE, SERUM 5.09 mg/dL (0.72-1.25)
[2019-06-13] MEDS: SODIUM CHLORIDE 0.9% 250ML IRRIG IR SCH ×2 (18:00→20:24)
[2019-06-13 18:05] LABS: POTASSIUM 5.5 mmol/L (3.5-5.1)
[2019-06-13] MEDS ORDERED: NEOSTIGMINE 1 MG/ML 10ML VIAL ONE (18:23)
[2019-06-13] MEDS ORDERED: SEVOFLURANE INHAL SOLN 250 ML PEN BTL ONE (18:23)
[2019-06-13] MEDS ORDERED: PROPOFOL IV EMULSION 10 MG/ML 20 ML VIAL ONE (18:23)
[2019-06-13] MEDS ORDERED: LIDOCAINE HCL 2% LOCAL INJ 5 ML SDV VIAL INJ ONE (18:23)
[2019-06-13] MEDS ORDERED: ONDANSETRON HCL INJ 2MG/ML 2ML 2 MG/ML VIAL ONE ×2 (18:23→19:26)
[2019-06-13] MEDS ORDERED: ROCURONIUM BROMIDE 10 MG/ML 5ML VIAL IV ONE (18:23)
[2019-06-13] MEDS ORDERED: PHENYLEPHRINE HCL 1% 10 MG/ML VIAL ONE (18:23)
[2019-06-13] MEDS ORDERED: ACETAMINOPHEN 1000 MG/100 ML IV ONE (18:23)
[2019-06-13] MEDS ORDERED: GLYCOPYRROLATE INJ 0.2 MG/ML VIAL ONE (18:23)
[2019-06-13 18:35] LABS: CALCIUM 6.9 mg/dL (8.4-10.2)
--- NOTE | 2019-06-13 18:35 | NUR ---
report from PACU; Shubham did R nephrectomy in exchange for suprapubic catheter. got 2 Versed, 200 Fentanyl, 4 Decadron, 4 Zofran, 1 gm Offirmev; still has L upper chest PICC. 1400 ml IV fluids received; estimated 200 cc blood loss; urine emptied 15 cc's from cath (22 Togolese, 5 cc). dressing to R flank c/d/i. pt has right NG tube that Dr Jalloh wants low continuous wall suction. CXR at 1652 done. lab work drawn at 1730; at 1659, glucose was 158. Pt started on Morphine COMPUTER SYSTEMS INTEGRATOR pump; given 3mg loading dose for pain at 1715, no basal rate, 1mg COMPUTER SYSTEMS INTEGRATOR dose, 10 min lockout and 8 mg, 1 hr limit. vital signs on RA at 1830: 130/88, HR 83, RR 17, sat 99%, temp 98.2. awaiting pt to arrive back to med surg 1.
--- NOTE | 2019-06-13 19:10 | NUR ---
change of shift report given to PM nurse, PRUDENCE Carcamo. pt has not yet arrived to Med Surg from PACU.
--- NOTE | 2019-06-13 19:40 | NUR ---
RECEIVED PATIENT FROM PACU AT THIS TIME. PATIENT SLEEPING AND LETHARGIC, BUT ANSWERS TO VERBAL STIMULI AND FOLLOWS COMMANDS. PAIN 10/10 WITH TRANSFER FROM PACU, SPORTS TEAM MANAGER PUMP CHECKED WITH GUM PULLER. DRESSING TO R FLANK C/D/I, NO DRAINAGE NOTED. SURROUNDING SKIN NORMAL. PERITONEAL DIALYSIS CATHETER NOTED, DRESSING APPLIED. SUPRAPUBIC CATHETER SITE NOTED, ASYMPTOMATIC, DRAINING SMALL AMOUNT OF YELLOW URINE WITH SEDIMENT. L SUBCLAVIAN CENTRAL LINE DRESSING C/D/I. IV FLUIDS RESUMED AT 100ML/HR. NG TUBE TO R NARE, DRAINING SMALL AMOUNT OF GREEN GASTRIC DRAINAGE. BED LOCKED IN LOWEST POSITION, SIDE RAILS UPX2, CALL LIGHT IN REACH.
[2019-06-13] MEDS ORDERED: MIDAZOLAM HCL 2 MG/2 ML VIAL ONE (19:56)
[2019-06-13] MEDS: SODIUM CHLORIDE 0.9% 1000ML 1,000 ML IV SCH (20:54)
[2019-06-13] MEDS ORDERED: CLONIDINE HCL 0.1 MG TAB PO SCH (21:30)
--- NOTE | 2019-06-13 23:44 | Consultation ---
DATE OF CONSULTATION: Consultation HISTORY OF PRESENT ILLNESS: Mr. Casiano is well known to me from before. He is a 38-year-old male with history of diabetes mellitus; neuropathy; end-stage renal disease, on hemodialysis; recurrent and chronic UTI. The patient have right hydronephrosis. He has been on IV antibiotics for the last couple of weeks. He has been admitted for nephrectomy. The patient had diabetes mellitus, neuropathy, hypertension, multiple complications of the diabetes, osteomyelitis, on peritoneal dialysis, suprapubic catheter for neurogenic bladder, cataract surgery, cholecystectomy, and right knee surgery, comes in for nephrectomy. The patient is otherwise lying in bed comfortably. PAST MEDICAL HISTORY: As above. PAST SURGICAL HISTORY: As above. ALLERGIES: NKA. SOCIAL HISTORY: There is no smoking, drug abuse, or alcohol abuse. FAMILY HISTORY: Otherwise noncontributory. REVIEW OF SYSTEMS: HEENT: Negative. PULMONARY: Negative. CARDIAC: Negative. PHYSICAL EXAMINATION: GENERAL: Currently alert and oriented, does not seem to be in acute distress. VITAL SIGNS: Stable. Afebrile. HEENT: Not icteric. NECK: Supple. CHEST: Clear bilateral. HEART: S1 and S2. No S3, S4, or murmur. ABDOMEN: Soft. Bowel sounds present. No tenderness. No hepatosplenomegaly. EXTREMITIES: No edema. Skin: No rash. IMPRESSION: 1. nephrectomy. Continue meropenem for the time being. We will discuss with Urology after the surgery. 2. Chronic kidney disease, on dialysis. 3. On peritoneal dialysis. 4. Diabetes mellitus neuropathy. 5. We will follow. MD PIPPA Steel/NOREEN /[id number]
--- NOTE | 2019-06-13 23:49 | Operative Report ---
DATE OF PROCEDURE: 06/13/2019 SURGEON: Castro Jalloh MD PREOPERATIVE DIAGNOSES: 1. Atrophic right kidney. 2. Right indwelling ureteral stent. 3. Chronic urinary retention. 4. Suprapubic cystostomy. POSTOPERATIVE DIAGNOSES: 1. Atrophic right kidney. 2. Right indwelling ureteral stent. 3. Chronic urinary retention. 4. Suprapubic cystostomy. OPERATIONS PERFORMED: 1. Change of cystostomy tube (separate procedure performed for diagnosis of retention and cystostomy tube). 2. Complicated right nephrectomy complicated by severe adhesions and reaction around this chronically infected and chronically obstructed right kidney. 3. Ureterotomy and removal of indwelling ureteral stent. STAFFING OPERATIONS MANAGER: GABBI Kumar. ANESTHESIA: General. COMPLICATIONS: None. CLINICAL SUMMARY: Sukh Lozano is a 38-year-old man with end-stage renal disease. He has a severely atrophic right kidney. He also has a distal and proximal right ureteral stricture and is managed with chronic indwelling stent. This stent gets infected and colonized because he is dependent of a chronic suprapubic cystostomy. He is not a candidate for catheterization due to decreased bladder capacity and severe neurogenic bladder. The patient has had recurrent complicated urinary tract infections, persistent pyelonephritis. The patient was evaluated at the [facility] for a renal-pancreas transplant and he was instructed that he would need to have a right nephrectomy prior to being considered for transplant. Therefore, the patient wanted top proceed with nephrectomy. The patient has been managed very closely by the Nephrology Service, who has been augmenting his chronic anemia with limited all blood products at the risk of willing to rather than receive any blood products. The patient's hemoglobin is approximately 10. He underwent peritoneal dialysis the night before surgery and is deemed as optimized as possible by his flavor room worker, his deck hand, and the Infectious Diseases Service. The patient has been outpatient antibiotics per the Infectious Diseases Service based on his most recent infection. The patient is aware of the risks of bleeding, infection, injury to adjacent structures, potential due to exsanguination, due to his refusal to receive any blood. He understood all these risks and he elected to proceed. The is not an elected procedure. This procedure is absolutely appropriate to be performed during the COVID-19 emergency situation due to the fact that delaying this procedure would cause the patient additional infection, additional , additional episodes of urosepsis, continued discomfort from his stent, and further delay his ability to get on the renal transplant list. OPERATIVE PROCEDURE IN DETAIL: Informed consent was verified. Sukh Lozano was properly identified, taken to the operating room, placed on the operating table in supine position. Anesthesia was uneventfully begun. The patient's suprapubic cystostomy was removed. His abdomen was prepared with antiseptic solution. A 22-Japanese Barcenas catheter . The patient was then carefully and gently repositioned in a flank position with all pressure points were very carefully well padded. His abdomen, chest, and back were prepared and draped in usual sterile fashion. A right flank incision was made off the 12th rid and extended medially. The incision was carried through all layers of the abdominal wall and an extraperitoneal approach was utilized. A small peritoneotomy was closed with 3-0 chromic suture. The peritoneum was rather thin anteriorly. There was no significant fluid within the abdomen and the patient completed the peritoneal dialysis in the late hours of the night or versus early hours of the morning. The kidney was small and extremely adherent . The dissection was rather challenging, especially through this smaller incision. Eventually, it was obvious that we were unable to safely complete the procedure with the limited through the small incision. We then extended the incision resecting part of the 12th rib and employed an extraperitoneal extrapleural approach. This allowed us to complete our dissection. We ligated the renal artery with a heavy silk tie as well as doubly hemoclipped it prior to dividing it was spared. The upper pole of the kidney was extremely adherent to attachments. Once we completed our dissection, we performed a ureterotomy indwelling stent. The ureter was left open due to the fact that there is very distal ureteral stricture, this will prevent the collection of any fluid in the ureter and hopefully prevent any . There was no evidence of prior vesicoureteral reflux . Copious irrigation was performed. We verified hemostasis. As a measure of insurance in this patient and cannot and will not receive blood, we utilized Avitene in the cephalad attachment and the adrenal bed area followed by Surgicel. We placed Surgicel medially as well and we also placed Surgicel in a nonbleeding bed as an insurance policy. We then approximated the wound in layers utilizing heavy Vicryl suture in interrupted [id number] fashion. Skin was approximated using araceli. Copious irrigation was performed . There was no need to place a drain and there was absolutely no bleeding. The peritoneum was intact. Sterile dressings were applied. The patient was then uneventfully reversed from anesthesia and taken to recovery room in stable condition. There were no complications to the procedure. He tolerated the procedure well. Sponge, needle, and instrument counts were correct x2 at the end of the case. Estimated blood loss was 200 mL. We will proceed with routine postoperative care and of course ongoing urologic followup. It is unclear at this time whether a left nephrectomy is indicated or if that kidney has not had persistent blockage at its right-sided counterpart. I do have significant concerns about the patient's bladder functionality. I defer the technical transplant decision to the Transplant Service. Castro Jalloh MD [place]/MODL /[id number]
[2019-06-14] VITALS (9 sets, daily range): BP systolic 87–131; BP diastolic 50–90
[2019-06-14] MEDS: MEROPENEM 500MG/ NS 50ML 50 ML IV SCH ×3 (00:14→22:44)
[2019-06-14] MEDS: SODIUM CHLORIDE 0.9% 250ML IRRIG IR SCH ×2 (01:28→05:30)
--- NOTE | 2019-06-14 03:33 | NUR ---
PATIENT STATES AGRONOMY RESEARCH MANAGER PUMP IS NOT DOING ENOUGH AND HE IS IN 10/10 PAIN AND REQUESTS THIS NURSE CALL DOCTOR. PAGED MD MAY AT THIS TIME, AWAITING CALL BACK.
--- NOTE | 2019-06-14 04:28 | NUR ---
SPOKE WITH MD MAY, NEW ORDERS RECEIVED TO CHANGE PARTY PLAN DEMONSTRATOR PUMP TO DILAUDID. ALSO STATED NO ICE CHIPS.
[2019-06-14] MEDS ORDERED: HYDROMORPHONE 0.2MG/ML-SOD CHL 30ML PCA SYRINGE IV PRN (04:30)
[2019-06-14] MEDS ORDERED: NALOXONE HCL INJ 0.4 MG/ML AMP IV PRN ×2 (04:30→04:45)
[2019-06-14] MEDS: HYDROMORPHONE 0.2MG/ML-SOD CHL 30ML PCA SYRINGE IV PRN ×2 (05:30→20:08)
[2019-06-14 05:41] LABS: BASOPHILS % 0.4 % (0.0-1.0); HEMATOCRIT 33.2 % (38.2-49.6); HEMOGLOBIN 10.1 g/dL (14.0-18.0); LYMPHOCYTES # (AUTO) 0.8 (1.0-3.2); MEAN CORPUSCULAR HEMOGLOBIN 25.2 pg (28-32); MEAN CORPUSCULAR HGB CONC 30.4 g/dL (31-35); MEAN CORPUSCULAR VOLUME 82.8 fL (81-99); MONOCYTES # (AUTO) 0.4 (0.2-0.8); MONOCYTES % 6.3 % (4.4-11.3); NEUTROPHILS # (AUTO) 5.7 (2.1-6.9); NEUTROPHILS % 80.7 % (38.7-80.0); PLATELET COUNT 158 x10e3/uL (140-360); RED BLOOD COUNT 4.01 x10e6/uL (4.3-5.7)
[2019-06-14 06:11] LABS: ANION GAP 11.4 mmol/L (8-16); CREATININE, SERUM 5.48 mg/dL (0.72-1.25); POTASSIUM 5.4 mmol/L (3.5-5.1)
[2019-06-14 06:12] LABS: CALCIUM 6.7 mg/dL (8.4-10.2)
--- NOTE | 2019-06-14 06:47 | NUR ---
PAGED MD TRAMMELL CONCERNING CALCIUM OF 6.7. AWAITING CALL BACK.
--- NOTE | 2019-06-14 07:00 | NUR ---
Received bedside shift report from off going nurse. Patient in stable condition, no s/s of distress noted. No pain voiced. Peritoneal dialysis running. IV fluids running. Telemetry applied and working. Bed in lowest position and locked.
[2019-06-14] MEDS: SODIUM CHLORIDE 0.9% 1000ML 1,000 ML IV SCH ×3 (07:19→19:12)
[2019-06-14] MEDS: INSULIN REGULAR, HUMAN 100 UNIT/1 ML 3ML VIAL SQ SCH ×4 (07:30→21:15)
[2019-06-14] MEDS: GABAPENTIN 300 MG CAP PO SCH ×3 (08:31→21:14)
[2019-06-14] MEDS: NIFEDIPINE CR 30 MG TAB PO SCH (08:32)
--- NOTE | 2019-06-14 09:10 | NUR ---
Paged Dr. Karimi due to potassium 5.4 and calcium 6.7. Awaiting return call.
--- NOTE | 2019-06-14 09:31 | Progress Note ---
DATE: SUBJECTIVE: Mr. Lozano is a pleasant 38-year-old gentleman, complicated past medical history including renal failure with peritoneal dialysis. The patient has been receiving IV antibiotic as an outpatient for infected kidney and UTI. Now, the patient is back and status post nephrectomy. The patient is seen and evaluated and spoke with Dr. Jalloh, Urology. REVIEW OF SYSTEMS: The patient is comfortable in bed. No nausea, no vomiting, no fever, no chills, no chest pain, no shortness of breath. No headache. No dysuria. No polyuria. OBJECITVE: VITAL SIGNS: Temperature 96.8, pulse 80, respirations 16, blood pressure 91/52. GENERAL: Alert and oriented, comfortable in bed, responds appropriately. CV: S1, S2. CHEST: Equal expansion. Clear to auscultation. No acute distress. ABDOMEN: Soft and nontender. No distention with PD tube. HEENT: Moist. No pallor. No JVD. EXTREMITIES: Weak, but no significant edema. Surgical site on the right side of his trunk is dressed on local care. MEDICATIONS: As far as Infectious Disease point of view, medication list was reviewed. The patient is on meropenem. MICROBIOLOGY: There is no microbiology studies available. There is no pathology available. RADIOLOGY STUDIES: Had a chest x-ray done yesterday showing no focal pneumonia or pulmonary edema, also no pneumothorax. ASSESSMENT AND PLAN: 1. Chronic kidney disease, now on peritoneal dialysis. 2. Status post nephrectomies. 3. Diabetes. 4. Diabetic neuropathy. 5. The patient currently with nasogastric tube for suction postop, however, order was received by the staff to remove the nasogastric tube and start the patient on feeding. 6. Continue with meropenem. 7. Monitor the patient clinically, follow up with the labs. 8. Discussed with Dr. Blum in detail. Please refer to chart for more information. Dictated by Lonny Lomas PA-C (Al) Ciro Blum MD /MODL /[id number]
[2019-06-14] MEDS ORDERED: SOD POLYSTYRENE SULFONATE SUSP 15 GM/60 ML BTL PO ONE (09:56)
[2019-06-14 09:58] LABS: CALCIUM IONIZED 0.9 mmol/L (1.09-1.30)
[2019-06-14 10:14] LABS: ALBUMIN 2.4 g/dL (3.5-5.0)
[2019-06-14] MEDS: ONDANSETRON HCL INJ 2MG/ML 2ML 2 MG/ML VIAL IV PRN ×3 (10:25→21:10)
--- NOTE | 2019-06-14 11:30 | NUR ---
Pt. expressed no spiritual or emotional concerns at this time. Geothermal Production Manager provided hospitality and information on how to reach tester armature or fields, if needed. No need to follow at this time. MIHAELA RENEE Geothermal Production Manager Spiritual Care Department O: [phone]
[2019-06-14] MEDS ORDERED: CALCIUM GLUCONATE 10% INJ 4.65 MEQ in SODIUM CHLORIDE 0.9% 50ML 50 ML IV ONE (13:30)
[2019-06-14] MEDS: CALCIUM CARBONATE 500 MG CHEWABLE TABS PO SCH (16:24)
--- NOTE | 2019-06-14 18:37 | NUR ---
Paged Dr. Karimi due to the patient having blood tinge in the peritoneal dialysis tubbing. Dr. Karimi called back and spoke with the dialysis nurse. Dialysis stated that Dr. Karimi spoke with Dr. Ledezma about the blood tinge and he gave orders to continue with the peritoneal dialysis.
--- NOTE | 2019-06-14 19:00 | NUR ---
RECEIVED PATIENT IN BEDSIDE SHIFT REPORT. PATIENT RESTING IN BED AT THIS TIME. PAIN 09/01, ASSISTANT DISTRIBUTION MANAGER PUMP CHECKS PERFORMED WITH OFFGOING NURSE. DRESSING TO R FLANK C/D/I. PERITONEAL DIALYSIS RUNNING AT THIS TIME, BLOOD-TINGED EFFLUENT NOTED, MD ALREADY AWARE. NO S&S OF DISTRESS NOTED. BED LOCKED IN LOWEST POSITION, SIDE RAILS UPX2, CALL LIGHT IN REACH.
--- NOTE | 2019-06-14 19:13 | NUR ---
Completed bedside shift report with oncoming nurse. Patient in stable condition, no s/s of distress noted. IV fluids running. Peritoneal dialysis running. Bed low and locked. Call light within reach. All personal items within reach.
[2019-06-14] MEDS: MAGNESIUM OXIDE 400 MG TAB PO SCH (21:14)
[2019-06-15] VITALS (8 sets, daily range): BP systolic 102–131; BP diastolic 59–66
[2019-06-15] MEDS: ONDANSETRON HCL INJ 2MG/ML 2ML 2 MG/ML VIAL IV PRN ×2 (01:12→05:30)
[2019-06-15 05:53] LABS: BASOPHILS % 0.2 % (0.0-1.0); EOSINOPHILS # (AUTO) 0.2 (0.0-0.4); EOSINOPHILS % 1.7 % (0.0-6.0); HEMATOCRIT 31.3 % (38.2-49.6); HEMOGLOBIN 9.3 g/dL (14.0-18.0); LYMPHOCYTES # (AUTO) 0.9 (1.0-3.2); LYMPHOCYTES % 9.4 % (18.0-39.1); MEAN CORPUSCULAR HEMOGLOBIN 25.2 pg (28-32); MEAN CORPUSCULAR HGB CONC 29.7 g/dL (31-35); MEAN CORPUSCULAR VOLUME 84.8 fL (81-99); MONOCYTES # (AUTO) 0.7 (0.2-0.8); MONOCYTES % 7.3 % (4.4-11.3); NEUTROPHILS # (AUTO) 7.5 (2.1-6.9); NEUTROPHILS % 80.9 % (38.7-80.0); PLATELET COUNT 135 x10e3/uL (140-360); RED BLOOD COUNT 3.69 x10e6/uL (4.3-5.7); RED CELL DISTRIBUTION WIDTH 16.5 % (11.7-14.4)
[2019-06-15 06:18] LABS: ALBUMIN 2.3 g/dL (3.5-5.0); ANION GAP 12.3 mmol/L (8-16); CREATININE, SERUM 6.52 mg/dL (0.72-1.25)
[2019-06-15 06:22] LABS: CALCIUM 6.6 mg/dL (8.4-10.2); POTASSIUM 4.3 mmol/L (3.5-5.1)
--- NOTE | 2019-06-15 06:31 | NUR ---
PAGED MD TRAMMELL CONCERNING CALCIUM OF 6.6. AWAITING CALL BACK.
--- NOTE | 2019-06-15 06:33 | NUR ---
MD SORIANO, COVERING FOR MD TRAMMELL CALLED BACK, STATED HE WANTED STAFF TO CALL AFTER 7AM SO MD TRAMMELL CAN ISSUE ORDERS HE IS FAMILIAR WITH PATIENT.
[2019-06-15] MEDS: INSULIN REGULAR, HUMAN 100 UNIT/1 ML 3ML VIAL SQ SCH ×4 (07:30→22:30)
--- NOTE | 2019-06-15 07:30 | NUR ---
Paged Dr. Enriquez due to lab results Calcium- 6.6, and Albumin- 2.3. Awaiting a return call.
[2019-06-15] MEDS: GABAPENTIN 300 MG CAP PO SCH ×3 (08:28→22:30)
[2019-06-15] MEDS: MAGNESIUM OXIDE 400 MG TAB PO SCH ×3 (08:28→22:30)
[2019-06-15] MEDS: CALCIUM CARBONATE 500 MG CHEWABLE TABS PO SCH ×2 (08:28→17:46)
[2019-06-15] MEDS: HYDROMORPHONE 0.2MG/ML-SOD CHL 30ML PCA SYRINGE IV PRN (08:30)
--- NOTE | 2019-06-15 08:57 | NUR ---
Received a return Call from (oncall for Dr. Karimi) orders entered.
[2019-06-15] MEDS ORDERED: BISACODYL 10 MG SUPP PR PRN (09:15)
[2019-06-15] MEDS ORDERED: BISACODYL 5 MG TAB EC PO PRN (09:15)
[2019-06-15] MEDS: PROMETHAZINE 12.5MG/ NACL 0.9% 12.5 MG/50 ML BAG IV PRN (09:35)
--- NOTE | 2019-06-15 09:40 | Progress Note ---
DATE: SUBJECTIVE: The patient is seen and evaluated, currently PD dialysis in progress. Remains with poor appetite. Remains weak. REVIEW OF SYSTEMS: Still with some nausea, weakness, poor oral intake. No fever. No chills. No chest pain. PHYSICAL EXAMINATION: VITAL SIGNS: Temperature 97.8, pulse is 106, respirations 16, and blood pressure 118/65. GENERAL: Alert and oriented, weak, in no acute distress. CV: S1 and S2. CHEST: Equal expansion. Clear to auscultation. No acute distress. ABDOMEN: Soft and nontender. No distention. HEENT: Moist. No pallor. No JVD. EXTREMITIES: Weak. Right flank surgical site and local care remains with some discomfort. Currently getting PD in progress and the fluid is bloody and pink. The patient had a recent nephrectomy on 06/12/2028. MEDICATIONS: Medication list reviewed and as far as Infectious Disease point of view, the patient is on meropenem. LABORATORY STUDIES: White blood cells 9.29, hemoglobin 9.3, platelet 135, dropped from 158. The patient is on PD and creatinine is 6.52, sodium 137, potassium 4.3. MICROBIOLOGY: No new microbiology studies available. RADIOLOGY STUDIES: X-ray from 06/13/2019, no focal pneumonia or pulmonary edema. ASSESSMENT AND PLAN: 1. Chronic kidney disease. 2. Status post right nephrectomy. 3. Diabetes. 4. Diabetic neuropathy. 5. Debility. 6. Peritoneal dialysis with some bloody return, which had recent nephrectomy. 7. Poor oral intake and appetite. 8. Pain. 9. Continue with Merrem. Discussed with Dr. Blum in details. Further management of this patient is based on daily findings on laboratory and physical examination. Overall seems better. Nasogastric tube is removed and the patient is started on oral intake. Overall, pain seems to be controlled. Please refer to chart for more information. Dictated by Lonny Lomas PA-C (Al) Ciro Blum MD /MODL /[id number]
[2019-06-15] MEDS: MEROPENEM 500MG/ NS 50ML 50 ML IV SCH ×2 (10:28→22:30)
[2019-06-15] MEDS: CALCITRIOL 0.25 MCG CAP PO SCH (10:46)
[2019-06-15] MEDS ORDERED: CALCIUM GLUCONATE 10% INJ 4.65 MEQ in SODIUM CHLORIDE 0.9% 50ML 50 ML IV ONE (12:00)
[2019-06-15] MEDS ORDERED: BISACODYL 10 MG SUPP PR SCH (13:45)
[2019-06-15] MEDS: ACETAMINOPHEN/CODEINE 300MG - 30MG TAB PO PRN (16:00)
[2019-06-15] MEDS: SENNA-S TABLET PO SCH (17:46)
[2019-06-15] MEDS: HYDROMORPHONE 1MG/1ML INJ IV PRN ×2 (19:30→23:00)
--- NOTE | 2019-06-15 19:35 | NUR ---
Completed bedside shift report with oncoming nurse. Patient in stable condition, no s/s of distress noted. Peritoneal dialysis running. Bed low and locked. Call light within reach. All personal items within reach.
--- NOTE | 2019-06-15 21:45 | NUR ---
PATIENT IS RESTING IN BED BOTH EYES CLOSED, NO SIGNS OF DISTRESS NOTED. HEMODIALYSIS IN CURRENTLY IN USE AND PATIENT VOICES PAIN AT A LEVEL OF 9 AND WILL BE MEDICATED ORDERED. IV ANTIBIOTICS ARE RUNNING AT ORDERED RATE. BED IS IN LOWEST POSITION, BOTH SIDE RAILS ARE UP, CALL LIGHT IS WITHIN EASY REACH, WILL CONTINUE TO MONITOR.
[2019-06-16] VITALS (8 sets, daily range): BP systolic 115–164; BP diastolic 68–87
[2019-06-16] MEDS: MORPHINE SULFATE INJ 4 MG/ML INJ 1ML IV PRN ×5 (03:00→21:45)
[2019-06-16] MEDS: ONDANSETRON HCL INJ 2MG/ML 2ML 2 MG/ML VIAL IV PRN ×2 (03:00→11:24)
[2019-06-16] MEDS: ACETAMINOPHEN/CODEINE 300MG - 30MG TAB PO PRN ×2 (04:23→08:35)
[2019-06-16 05:32] LABS: BASOPHILS % 0.3 % (0.0-1.0); EOSINOPHILS # (AUTO) 0.2 (0.0-0.4); EOSINOPHILS % 2.2 % (0.0-6.0); HEMATOCRIT 28.6 % (38.2-49.6); HEMOGLOBIN 8.8 g/dL (14.0-18.0); LYMPHOCYTES % 13.4 % (18.0-39.1); MEAN CORPUSCULAR HEMOGLOBIN 25.7 pg (28-32); MEAN CORPUSCULAR HGB CONC 30.8 g/dL (31-35); MEAN CORPUSCULAR VOLUME 83.4 fL (81-99); MONOCYTES # (AUTO) 0.6 (0.2-0.8); MONOCYTES % 8.1 % (4.4-11.3); NEUTROPHILS # (AUTO) 5.9 (2.1-6.9); NEUTROPHILS % 75.4 % (38.7-80.0); PLATELET COUNT 117 x10e3/uL (140-360); RED BLOOD COUNT 3.43 x10e6/uL (4.3-5.7); RED CELL DISTRIBUTION WIDTH 16.1 % (11.7-14.4)
[2019-06-16 05:58] LABS: ANION GAP 9.8 mmol/L (8-16); CREATININE, SERUM 6.29 mg/dL (0.72-1.25); POTASSIUM 3.8 mmol/L (3.5-5.1)
[2019-06-16 06:02] LABS: CALCIUM 6.6 mg/dL (8.4-10.2)
[2019-06-16] MEDS: HYDROMORPHONE 1MG/1ML INJ IV PRN ×4 (07:20→20:21)
[2019-06-16 07:22] LABS: CALCIUM IONIZED 0.9 mmol/L (1.09-1.30)
[2019-06-16] MEDS: INSULIN REGULAR, HUMAN 100 UNIT/1 ML 3ML VIAL SQ SCH ×4 (07:30→21:48)
[2019-06-16] MEDS: GABAPENTIN 300 MG CAP PO SCH ×3 (08:27→21:44)
[2019-06-16] MEDS: MAGNESIUM OXIDE 400 MG TAB PO SCH ×3 (08:27→21:44)
[2019-06-16] MEDS: CALCIUM CARBONATE 500 MG CHEWABLE TABS PO SCH ×4 (08:27→21:44)
[2019-06-16] MEDS: CALCITRIOL 0.25 MCG CAP PO SCH (08:27)
[2019-06-16] MEDS: SENNA-S TABLET PO SCH ×2 (08:27→17:36)
[2019-06-16] MEDS: MEROPENEM 500MG/ NS 50ML 50 ML IV SCH ×2 (10:08→21:44)
--- NOTE | 2019-06-16 10:13 | NUR ---
PT AAOX3. ACYANOTIC. RESTING IN BED. CURRENTLY TRANSPORTED OFF UNIT VIA BED TO RADIOLOGY FOR CHEST XRAY. NO DISTRESS NOTED.
--- NOTE | 2019-06-16 10:14 | Progress Note ---
DATE: 06/16/2019 SUBJECTIVE: The patient is seen and evaluated and discussed with the nurse and discussed with Urology. REVIEW OF SYSTEMS: Complaining of fever. Discussed with staff. T-max is 100.5. The patient was started on O2 nasal cannula. Chest x-ray was ordered by Urology, otherwise no nausea, vomiting, chills, chest pain, headache, abdominal pain, rash, sweats. OBJECTIVE: VITAL SIGNS: Temperature 100.5 max, pulse is 93, respirations 18, and blood pressure 132/68. GENERAL: Alert and oriented, no acute distress. CV: S1-S2. CHEST: Equal expansion, decreased breath sounds. No acute distress. ABDOMEN: Soft and nontender. No distention. PD tube noted. EXTREMITIES: Weak, but moves all. No acute finding. LABORATORY STUDIES: White count of 7.76, hemoglobin 8.8, platelets 117. Sodium 136, potassium 3.8, estimated GFR of 10. No new microbiology studies available. Chest x-ray ordered today by Dr. Jalloh. ASSESSMENT AND PLAN: This is a pleasant 38-year-old Latin-[place]anaian gentleman with chronic kidney disease, status post right nephrectomy. Started running fever with a maximum of 100.5. We will follow with a chest x-ray, monitor patient clinically. The patient was placed on O2 supplement and no other complaints of diarrhea or abdominal pain. The patient clinically in no acute distress. 1. Diabetic neuropathy. 2. Debility. 3. End-stage renal disease. The patient is on peritoneal dialysis. The color of the peritoneal fluid has improved to less tense as far as the redness and is improving with the patient's recent nephrectomy. 4. Poor appetite-optimize protein calorie intake. 5. Pain management. 6. The patient is on Merrem. We will continue to monitor patient clinically and follow with a chest x-ray and we will also culture the blood. Please refer to chart for more information. This case was discussed with Dr. Blum in details. Dictated by Lonny Lomas PA-C (Al) Ciro Blum MD /MODL /[id number]
[2019-06-16] MEDS ORDERED: CALCIUM GLUCONATE 10% INJ 4.65 MEQ in SODIUM CHLORIDE 0.9% 50ML 50 ML IV ONE (10:15)
--- NOTE | 2019-06-16 10:31 | NUR ---
PT TRANSPORTED BACK TO ROOM AFTER CHEST XRAY. NO DISTRESS NOTED.
--- NOTE | 2019-06-16 10:51 | Diagnostic Imaging Report ---
EXAMINATION: CHEST 2 VIEWS INDICATION: Postoperative fever COMPARISON: Chest radiograph 06/13/2019 FINDINGS: LINES/TUBES:Left IJ tunneled central venous catheter terminates just beyond the superior cavoatrial junction. EKG leads overlie the chest. LUNGS:The lungs are moderately inflated. No focal consolidation or pulmonary edema. PLEURA:No pleural effusion or pneumothorax. MEDIASTINUM:The cardiomediastinal silhouette appears unchanged in size and shape. BONES/SOFT TISSUES:No acute osseous injury. ABDOMEN:Increasing pneumoperitoneum. Status post cholecystectomy. IMPRESSION: Worsening pneumoperitoneum. No focal pneumonia or pulmonary edema. Signed by: Imtiaz Manzo MD on 06/16/2019 10:47 AM
[2019-06-16] MEDS: METOCLOPRAMIDE HCL 10 MG TAB PO SCH ×2 (11:26→15:45)
[2019-06-17] VITALS (8 sets, daily range): BP systolic 127–157; BP diastolic 71–87
[2019-06-17] MEDS: MORPHINE SULFATE INJ 4 MG/ML INJ 1ML IV PRN ×4 (03:10→21:15)
[2019-06-17] MEDS: HYDROCODONE/APAP 10MG-325MG TAB PO PRN ×3 (05:35→23:55)
[2019-06-17 06:14] LABS: ALBUMIN 1.8 g/dL (3.5-5.0); ANION GAP 9.1 mmol/L (8-16); CALCIUM 7.3 mg/dL (8.4-10.2); CREATININE, SERUM 5.75 mg/dL (0.72-1.25); POTASSIUM 4.1 mmol/L (3.5-5.1)
[2019-06-17] MEDS: METOCLOPRAMIDE HCL 10 MG TAB PO SCH ×3 (07:27→17:19)
[2019-06-17] MEDS: INSULIN REGULAR, HUMAN 100 UNIT/1 ML 3ML VIAL SQ SCH ×4 (07:30→22:04)
[2019-06-17] MEDS: GABAPENTIN 300 MG CAP PO SCH ×3 (08:17→21:00)
[2019-06-17] MEDS: MAGNESIUM OXIDE 400 MG TAB PO SCH ×3 (08:17→21:01)
[2019-06-17] MEDS: CALCIUM CARBONATE 500 MG CHEWABLE TABS PO SCH ×3 (08:17→21:00)
[2019-06-17] MEDS: CALCITRIOL 0.25 MCG CAP PO SCH (08:17)
[2019-06-17] MEDS: SENNA-S TABLET PO SCH ×2 (08:17→18:06)
--- NOTE | 2019-06-17 09:40 | NUR ---
Visit made by Daniella Church. Heating Element Repairer provided pastoral presence, prayer, hospitality, and supportive listening. Heating Element Repairer informed pt/family of the scope of Coding Machine Operator Services and availability. MIHAELA Florentinolain Spiritual Care Department O: [phone]
[2019-06-17] MEDS: MEROPENEM 500MG/ NS 50ML 50 ML IV SCH ×2 (11:28→22:35)
[2019-06-17] MEDS: HYDROMORPHONE 1MG/1ML INJ IV PRN ×3 (11:41→23:15)
--- NOTE | 2019-06-17 18:38 | NUR ---
CALLED CONSULT FOR DEEDEE DOSHI
--- NOTE | 2019-06-17 19:10 | NUR ---
RECEIVED REPORT FROM [facility] NURSE. AAOX3. RESTING IN BED. SUPRAPUBIC CATHETER PRESENT DRAINING TO GRAVITY. NO ADVERSE SIGNS. SALINE LOCK L DOUBLE LUMEN CENTRAL CATHETER. NO SIGNS OF INFILTRATION. SR UPX2. BED LOCKED AND IN LOW POSITION. CALL LIGHT WITHIN REACH.
--- NOTE | 2019-06-17 19:10 | NUR ---
WALKING ROUNDS PERFORMED, RECEIVED PT LAYING SEMI FOWLERS IN BED, AAOX3, RR EVEN AND NON-LABORED, O2 BY NC AT 2L. PT RECEIVING PERITONEAL DIALYSIS AT THIS TIME. SUPRAPUBIC CATH NOTED TO BE INTACT AND DRAINING TO BEDSIDE BAG CLOUDY, SEDIMENT YELLOW URINE. PT REPORTS PAIN TO (R) FLANK. (R) FLANK NOTED TO HAVE INCISION S/P PROCEDURE OPEN TO AIR, INCISION DRAINING CLEAR YELLOW FLUID. RECEIVED IN REPORT THAT MD Haider MAY WANTS INCISION COVERED WITH ABD PAD AND PAPER TAPE. LEFT PT LAYING SEMI FOWLERS IN BED, BED IN LOW LOCKED POSITION, SIDE RAILS UPX2, CALL LIGHT AND PHONE WITHIN REACH.
--- NOTE | 2019-06-17 23:15 | NUR ---
ABD PAD APPLIED TO (R) FLANK, SECURED WITH PAPER TAPE. CHANGED DISPOSABLE DION FROM BED.
[2019-06-17] MEDS: CLONIDINE HCL 0.1 MG TAB PO PRN (23:54)
[2019-06-18] VITALS (9 sets, daily range): BP systolic 133–197; BP diastolic 84–103
[2019-06-18] MEDS: MORPHINE SULFATE INJ 4 MG/ML INJ 1ML IV PRN ×4 (02:46→22:45)
[2019-06-18] MEDS: HYDROMORPHONE 1MG/1ML INJ IV PRN ×3 (04:16→23:35)
[2019-06-18 05:59] LABS: CALCIUM IONIZED 1.1 mmol/L (1.09-1.30)
[2019-06-18 06:05] LABS: ALBUMIN 1.7 g/dL (3.5-5.0); CALCIUM 7.7 mg/dL (8.4-10.2); CREATININE, SERUM 5.16 mg/dL (0.72-1.25)
--- NOTE | 2019-06-18 07:26 | NUR ---
bedside shift report received from PM nurse. pt in stable condition.
--- NOTE | 2019-06-18 07:26 | NUR ---
RECEIVED REPORT FROM [facility] NURSE. RESTING IN BED. AAOX3. BED LOCKED AND IN LOW POSITION. SR UPX2. L SUBCLAVIAN CENTRAL CATHETER SALINE LOCK. NO SIGNS OF INFILTRATION.
[2019-06-18] MEDS: INSULIN REGULAR, HUMAN 100 UNIT/1 ML 3ML VIAL SQ SCH ×4 (08:20→20:13)
[2019-06-18] MEDS: HYDROCODONE/APAP 10MG-325MG TAB PO PRN (09:08)
[2019-06-18] MEDS: METOCLOPRAMIDE HCL 10 MG TAB PO SCH ×3 (09:10→17:33)
[2019-06-18] MEDS: MAGNESIUM OXIDE 400 MG TAB PO SCH ×3 (09:11→20:15)
[2019-06-18] MEDS: GABAPENTIN 300 MG CAP PO SCH ×3 (09:11→20:15)
[2019-06-18] MEDS: SENNA-S TABLET PO SCH ×2 (09:11→17:33)
[2019-06-18] MEDS: CALCITRIOL 0.25 MCG CAP PO SCH (09:11)
[2019-06-18] MEDS: CALCIUM CARBONATE 500 MG CHEWABLE TABS PO SCH ×3 (09:12→20:15)
[2019-06-18] MEDS: MEROPENEM 500MG/ NS 50ML 50 ML IV SCH ×2 (09:12→22:20)
--- NOTE | 2019-06-18 12:29 | NUR ---
CC: Fever, chills SUBJECTIVE: The patient is seen and evaluated and discussed with the nurse and discussed with Urology. REVIEW OF SYSTEMS: Positive: Fatigue, abdominal pain, malaise Neg: All 14 point unless otherwise documented. PHYSICAL EXAM VS: 98.1, 133/84, 78, 18 GENERAL: Alert and oriented, no acute distress. HEENT: Pupils are equal, reactive to light and accommodation. CV: S1-S2, no s3, s4, no JVD CHEST: Equal expansion, decreased breath sounds. No acute distress. ABDOMEN: Soft and nontender. No distention. PD tube noted. EXTREMITIES: Weak, but moves all. No acute finding NEURO: WNL, cranial nerves intact PSYCH: intact judgement LABORATORY STUDIES: reviewed and noted ASSESSMENT This is a pleasant 38-year-old Latin-Slovak gentleman with chronic kidney disease, status post right nephrectomy. The patient started running fever with a maximum of 100.5. 1. Diabetic neuropathy. 2. Debility 3. End-stage renal disease. 4. Poor appetite-optimize protein calorie intake. 5. Pain management 6. UTI 7. Pyelonephritis PLAN 06/18/19 The patient is on peritoneal dialysis. The color of the peritoneal fluid has improved to less tense as far as the redness and is improving with the patient's recent nephrectomy. The patient is currently on Merrem. Will plan for 1-2 weeks outpatient Merrem. The patient is set up already in my office. Discussed with Ciro Blum M.D.
--- NOTE | 2019-06-18 12:31 | NUR ---
spoke with Dr. Aguirre (with Dr. Karimi's group); informed him of pt's retention of 1463 mL fluid s/p peritoneal dialysis this morning. no new orders received.
[2019-06-18] MEDS: ONDANSETRON HCL INJ 2MG/ML 2ML 2 MG/ML VIAL IV PRN (16:27)
--- NOTE | 2019-06-18 17:40 | NUR ---
Nutrition Screen Note RD Recommendation for Physician: - Liberalize diet order - Rec appetite stimulant if appropriate - Consult COMMISSIONER [employer] if swallowing difficulty persists - Pt refused oral nutrition supplements; RD obtained diet preferences Plan of Care: RD following, monitoring for tolerance and adequacy Nutrition reason for involvement: LOS Primary Diagnose(s): chronic kidney disease, status post right nephrectomy PMH: 1. Chronic kidney disease, stage 4. 2. Type 2 diabetes mellitus. 3. Hypertension. 5. Anemia of chronic disease. Ht: 71in Wt: 210 lbs BMI: 29.3kg/m2 IBW: 172lb +/- 10% RD Assessment: (05/06) 38 yo M, who is admitted for ESRD s/p R nephrectomy. Currently on PD. POC glucose is between 140-160 today. Pt is well known to me from his previous admissions for renal failure. Visited pt in the room. Pt reports appetite being fair with 25-50% PO intake. Pt complains of occasional nausea and vomiting. LBM a few days ago. Pt complains of some mild swallowing problem that is new today. Pt has tried protein supplements during his previous stay but does not like them. RD discussed menu options and entered diet preferences in [facility]. Communicated nutrition care plan with RN. Will revisit pt if consulted. Current Diet: ADA diet Malnutrition Evaluation (06/17) The patient does not meet criteria for a specified degree of malnutrition at this time. Will re-evaluate at follow-up as appropriate. Diet Education Needs Assessment: Diet education indicated but pt refused during 05/06 assessment- Handouts and diet instruction were given during his last visit in 09/2018. Nutrition Care Level: low Signed: Lupe Germain, , RD, LD
--- NOTE | 2019-06-18 19:06 | NUR ---
RECEIVED REPORT FROM [facility] NURSE. RESTING IN BED. AAOX3. SUPRAPUBIC CATHETER DRAINING URINE TO GRAVITY. NO ADVERSE SIGNS. L SUBCLAVIAN CENTRAL CATHETER SALINE LOCK. NO SIGNS OF INFILTRATION. SR UPX2. BED LOCKED AND IN LOW POSITION. CALL LIGHT WITHIN REACH.
--- NOTE | 2019-06-18 20:20 | NUR ---
APPLIED NC AT 2L/MIN.
[2019-06-18] MEDS: PROMETHAZINE 12.5MG/ NACL 0.9% 12.5 MG/50 ML BAG IV PRN (20:44)
[2019-06-19] VITALS (10 sets, daily range): BP systolic 135–168; BP diastolic 86–104
[2019-06-19] MEDS: HYDROMORPHONE 1MG/1ML INJ IV PRN ×5 (02:35→20:54)
[2019-06-19] MEDS: MORPHINE SULFATE INJ 4 MG/ML INJ 1ML IV PRN (04:25)
[2019-06-19 06:22] LABS: CALCIUM IONIZED 1.1 mmol/L (1.09-1.30)
[2019-06-19 06:23] LABS: ALBUMIN 1.7 g/dL (3.5-5.0); ANION GAP 11.1 mmol/L (8-16); CALCIUM 7.8 mg/dL (8.4-10.2); CREATININE, SERUM 4.8 mg/dL (0.72-1.25); POTASSIUM 4.1 mmol/L (3.5-5.1)
[2019-06-19] MEDS: ONDANSETRON HCL INJ 2MG/ML 2ML 2 MG/ML VIAL IV PRN (07:00)
--- NOTE | 2019-06-19 07:15 | NUR ---
BEDSIDE SHIFT REPORT RECEIVED FROM PM NURSE. PT IN STABLE CONDITION. WILL CONTINUE TO ASSESS.
--- NOTE | 2019-06-19 07:30 | NUR ---
REPORT GIVEN TO [facility] NURSE. RESTING IN BED. AAOX3. L SUBCLAVIAN DOUBLE LUMEN CENTRAL CATHETER SALINE LOCK. NO SIGNS OF INFILTRATION. SUPRAPUBIC CATHETER DRAINING URINE TO GRAVITY. SR UPX2. BED LOCKED AND IN LOW POSITION. CALL LIGHT WITHIN REACH.
[2019-06-19] MEDS: INSULIN REGULAR, HUMAN 100 UNIT/1 ML 3ML VIAL SQ SCH ×4 (08:22→20:55)
[2019-06-19] MEDS: CALCIUM CARBONATE 500 MG CHEWABLE TABS PO SCH ×3 (08:35→20:55)
[2019-06-19] MEDS: MAGNESIUM OXIDE 400 MG TAB PO SCH ×3 (08:36→20:55)
[2019-06-19] MEDS: SENNA-S TABLET PO SCH ×2 (08:37→17:13)
[2019-06-19] MEDS: GABAPENTIN 300 MG CAP PO SCH ×3 (08:37→20:55)
[2019-06-19] MEDS: CALCITRIOL 0.25 MCG CAP PO SCH (08:37)
[2019-06-19] MEDS: METOCLOPRAMIDE HCL 10 MG TAB PO SCH ×3 (08:37→17:13)
[2019-06-19] MEDS: MEROPENEM 500MG/ NS 50ML 50 ML IV SCH ×2 (09:01→20:55)
--- NOTE | 2019-06-19 09:25 | NUR ---
peritoneal dialysis finished, pt had 758 mL retained fluid. vital signs recorded. Dialysis nurse states pt's Dextrose is too low, leading to elevated blood pressure. He states he will call the doctor and alert him.
--- NOTE | 2019-06-19 10:24 | NUR ---
spoke with Dr. Potts who states he believes pt has some abdominal distention due to peritoneal dialysis. Furthermore, he states he will talk to Renal about changing peritoneal dialysis to hemodialysis because the rehab facility will not take PD patients.
--- NOTE | 2019-06-19 10:54 | NUR ---
SPOKE WITH DR. LOWE'S ONLINE MARKETING SPECIALIST, [place], WHO STATES PT WILL KEEP CENTRAL LINE FOR 2 WEEKS OF IV MERREM ABX.
--- NOTE | 2019-06-19 10:56 | NUR ---
CC: Fever, chills SUBJECTIVE: The patient is seen and evaluated and discussed with the nurse. REVIEW OF SYSTEMS: Positive: Fatigue, abdominal pain, malaise Neg: All 14 point unless otherwise documented. PHYSICAL EXAM VS: 97.9, 149/91,89, 18 GENERAL: Alert and oriented, no acute distress. Sleeping comfortably in bed. HEENT: Pupils are equal, reactive to light and accommodation. CV: S1-S2, no s3, s4, no JVD CHEST: Equal expansion, decreased breath sounds. No acute distress. ABDOMEN: Soft and nontender. No distention. PD tube noted. EXTREMITIES: Weak, but moves all. No acute finding NEURO: WNL, cranial nerves intact PSYCH: intact judgement LABORATORY STUDIES: reviewed and noted MEDS: Merrem ASSESSMENT This is a pleasant 38-year-old Latin-Martiniquais gentleman with chronic kidney disease, status post right nephrectomy. The patient started running fever with a maximum of 100.5. 1. Diabetic neuropathy. 2. Debility 3. End-stage renal disease. 4. Poor appetite-optimize protein calorie intake. 5. Pain management 6. UTI 7. Pyelonephritis PLAN 06/19/19: The patient is continuing on peritoneal dialysis. The peritoneal fluid color improved, s/p recent nephrectomy. Continues on Merrem without adverse reaction. Sleeping this AM. We will plan for 1-2 weeks outpatient Merrem in my office. Patient to see me the day after discharge in clinic. 06/18/19 The patient is on peritoneal dialysis. The color of the peritoneal fluid has improved to less tense as far as the redness and is improving with the patient's recent nephrectomy. The patient is currently on Merrem. Will plan for 1-2 weeks outpatient Merrem. The patient is set up already in my office. Discussed with Ciro Blum M.D.
--- NOTE | 2019-06-19 12:25 | NUR ---
PAGED DR. MARK REGARDING REHAB CONSULT; LEFT MESSAGE ON ANSWERING MACHINE.
[2019-06-19] MEDS: PROMETHAZINE 12.5MG/ NACL 0.9% 12.5 MG/50 ML BAG IV PRN (12:40)
--- NOTE | 2019-06-19 13:24 | NUR ---
ORDER FOR [facility] EVAL PT REFUSING TO SIGN CHOICE LETTER WANTS TO SPEAK WITH '[facility] FIRST EXPLAINED TO PT THAT HE HAS OPTIONS OF ANY REHAB FACILITY HOWEVER DR MAY RECOMMENDS [facility] SO THAT HE CAN FOLLOW PT S/P NEPHRECTOMY PT STATES HE WILL SPEAK WITH PHYSICIANS AND DECIDE AT THAT TIME
--- NOTE | 2019-06-19 19:10 | NUR ---
RECEIVED REPORT FROM PREVIOUS NURSE. CALL LIGHT WITHIN REACH. PATIENT IN BED. WALKING ROUNDS DONE.
[2019-06-19] MEDS: HYDROCODONE/APAP 10MG-325MG TAB PO PRN (19:21)
[2019-06-20] VITALS (9 sets, daily range): BP systolic 112–169; BP diastolic 76–95
[2019-06-20] MEDS: HYDROMORPHONE 1MG/1ML INJ IV PRN ×6 (02:25→23:42)
[2019-06-20 05:41] LABS: BASOPHILS % 0.3 % (0.0-1.0); EOSINOPHILS # (AUTO) 0.2 (0.0-0.4); EOSINOPHILS % 7.3 % (0.0-6.0); HEMATOCRIT 29.1 % (38.2-49.6); MEAN CORPUSCULAR HEMOGLOBIN 25.2 pg (28-32); MEAN CORPUSCULAR HGB CONC 30.9 g/dL (31-35); MEAN CORPUSCULAR VOLUME 81.5 fL (81-99); MONOCYTES # (AUTO) 0.4 (0.2-0.8); MONOCYTES % 11.9 % (4.4-11.3); NEUTROPHILS # (AUTO) 1.6 (2.1-6.9); NEUTROPHILS % 48.9 % (38.7-80.0); PLATELET COUNT 133 x10e3/uL (140-360); RED BLOOD COUNT 3.57 x10e6/uL (4.3-5.7); RED CELL DISTRIBUTION WIDTH 14.9 % (11.7-14.4)
[2019-06-20 06:25] LABS: ALBUMIN 1.6 g/dL (3.5-5.0); ANION GAP 9.2 mmol/L (8-16); CALCIUM 7.8 mg/dL (8.4-10.2); CREATININE, SERUM 4.56 mg/dL (0.72-1.25); POTASSIUM 4.2 mmol/L (3.5-5.1)
[2019-06-20 06:32] LABS: CALCIUM IONIZED 1.1 mmol/L (1.09-1.30)
--- NOTE | 2019-06-20 07:17 | NUR ---
GAVE REPORT TO ONCOMING NURSE. PATIENT IN BED. CALL LIGHT WITHIN REACH. BEDSIDE ROUNDING DONE.
[2019-06-20] MEDS: INSULIN REGULAR, HUMAN 100 UNIT/1 ML 3ML VIAL SQ SCH ×4 (07:30→21:00)
[2019-06-20] MEDS: MAGNESIUM OXIDE 400 MG TAB PO SCH ×3 (08:03→17:49)
[2019-06-20] MEDS: GABAPENTIN 300 MG CAP PO SCH ×3 (08:03→20:59)
[2019-06-20] MEDS: CALCITRIOL 0.25 MCG CAP PO SCH (08:04)
[2019-06-20] MEDS: METOCLOPRAMIDE HCL 10 MG TAB PO SCH ×3 (08:04→17:49)
[2019-06-20] MEDS: CALCIUM CARBONATE 500 MG CHEWABLE TABS PO SCH ×3 (08:04→20:59)
[2019-06-20] MEDS: SENNA-S TABLET PO SCH ×2 (08:04→17:49)
[2019-06-20] MEDS: MEROPENEM 500MG/ NS 50ML 50 ML IV SCH ×2 (09:57→21:00)
--- NOTE | 2019-06-20 10:27 | NUR ---
[facility] DO[facility] NOT DO PERITONEAL DIALYSIS SPOKE WITH MAYKEL AT [facility] AND THEY DO PERITONEAL DIALYSIS DR MAY AND DR LLOYD CAN FOLLOW THERE GAVE PT MY CARD AND DISCUSSED [facility] WITH PT HE WILL SPEAK TO HIS FAMILY AND LET ME KNOW HIS DECISION TODAY
[2019-06-20] MEDS: HYDROCODONE/APAP 10MG-325MG TAB PO PRN (11:36)
--- NOTE | 2019-06-20 12:08 | Progress Note ---
DATE: SUBJECTIVE: This is a pleasant 38-year-old gentleman, complicated with past medical history. The patient seen and evaluated. Available labs and notes reviewed. REVIEW OF SYSTEMS: No nausea. No vomiting. No fever. No chills. No chest pain. No shortness of breath. Pain management per others, however, his pain seems to be controlled. OBJECTIVE: VITAL SIGNS: Temperature is 98.1, pulse is 87, respirations are 18, and blood pressure is 148/95. GENERAL: Alert and oriented, in no acute distress. CV: S1, S2. CHEST: Equal expansion. Clear to auscultation, in no acute distress. ABDOMEN: Soft, nontender. No distention. HEENT: Moist. No pallor. No JVD present. LABORATORY DATA: White blood cells 3.29, hemoglobin 9, and platelets 133. Sodium 135, potassium 4.2, and creatinine 4.56, the patient is on peritoneal dialysis. MICROBIOLOGY: Blood culture is negative at 72 hours. RADIOLOGY STUDIES: No new radiology studies available. ASSESSMENT AND PLAN: The patient is a 38-year-old gentleman with complicated past medical history with: 1. Chronic urinary tract infection and infected, nonfunctional kidney, now status post right nephrectomy. 2. Diabetes. 3. Mild renal failure - on peritoneal dialysis. 4. Pain management. 5. PT/OT. 6. Continue with Merrem at this point. 7. Continue to monitor the patient. Continue to follow with the labs. Discussed with Dr. Blum in detail. Please refer to chart for more information. Dictated by Lonny Lomas PA-C (Al) Ciro Blum MD /MODL /[id number]
--- NOTE | 2019-06-20 12:16 | NUR ---
SIGNED CHOICE LETTER FOR [facility] PLACED ON CHART CLINICALS FAXED TO MAYKEL AT [facility] AWAIT INS AUTH FOR TRANSFER
--- NOTE | 2019-06-20 19:15 | NUR ---
Bedside report and walking rounds completed with off going nurse. Patient in bed with call light within reach. No issues or concerns noted. Will continue to monitor closely.
--- NOTE | 2019-06-20 19:29 | NUR ---
PATIENT HAD INSULIN AT 1630 6 UNITS REGULAR.
--- NOTE | 2019-06-20 19:37 | NUR ---
Patient requesting pain medication. PRN PO norco offered for pain and patient refusing and requesting IV Dilaudid for pain. Informed patient that order is to take po then IV. Patient refusing PO and requesting IV.
[2019-06-20] MEDS ORDERED: SODIUM CHLORIDE 0.9% 250ML 250 ML ONE (19:38)
--- NOTE | 2019-06-20 23:18 | NUR ---
Peritoneal dialysis unit alarming. Spoke with Angel at [facility] regarding alarm. To jason nurse.
[2019-06-20] MEDS: CLONIDINE HCL 0.1 MG TAB PO PRN (23:40)
[2019-06-21] VITALS (9 sets, daily range): BP systolic 116–181; BP diastolic 82–101
[2019-06-21] MEDS: HYDROCODONE/APAP 10MG-325MG TAB PO PRN (01:43)
[2019-06-21] MEDS: HYDROMORPHONE 1MG/1ML INJ IV PRN ×5 (04:15→23:40)
[2019-06-21 05:47] LABS: CALCIUM IONIZED 1.2 mmol/L (1.09-1.30)
[2019-06-21 06:04] LABS: ALBUMIN 1.6 g/dL (3.5-5.0); ANION GAP 11.5 mmol/L (8-16); CALCIUM 8.2 mg/dL (8.4-10.2); CREATININE, SERUM 4.4 mg/dL (0.72-1.25); POTASSIUM 4.5 mmol/L (3.5-5.1)
--- NOTE | 2019-06-21 07:00 | NUR ---
Bedside report and walking rounds completed with on coming nurse. Patient in bed with call light within reach. No issues or concerns noted.
[2019-06-21] MEDS: INSULIN REGULAR, HUMAN 100 UNIT/1 ML 3ML VIAL SQ SCH ×4 (07:30→21:00)
[2019-06-21] MEDS: SENNA-S TABLET PO SCH ×2 (08:59→16:16)
[2019-06-21] MEDS: CALCIUM CARBONATE 500 MG CHEWABLE TABS PO SCH (08:59)
[2019-06-21] MEDS: GABAPENTIN 300 MG CAP PO SCH ×3 (08:59→20:59)
[2019-06-21] MEDS: CALCITRIOL 0.25 MCG CAP PO SCH (08:59)
[2019-06-21] MEDS: MAGNESIUM OXIDE 400 MG TAB PO SCH ×3 (08:59→20:59)
[2019-06-21] MEDS ORDERED: NICOTINE 14 MG/EA PATCH TOP SCH (09:00)
[2019-06-21] MEDS: METOCLOPRAMIDE HCL 10 MG TAB PO SCH ×3 (09:03→16:16)
--- NOTE | 2019-06-21 09:26 | Progress Note ---
DATE: SUBJECTIVE: Mr. Casiano is doing well. He is status post nephrectomy. The patient, who is lying in bed comfortable. PHYSICAL EXAMINATION: GENERAL: Currently alert and oriented. Does not seem to be in acute distress. VITAL SIGNS: Stable, afebrile. HEENT: Not icteric. NECK: Supple. CHEST: Clear. HEART: S1 and S2. No S3, S4, or murmurs. ABDOMEN: Soft. IMPRESSION: Pyelonephritis, urinary tract infection, had to have nephrectomy with low fever, if he may have local peritonitis since he was colonized with multidrug-resistant. We will keep him on meropenem. Recommend to do 2 more weeks of meropenem. Discussed with the patient. We will follow. MD PIPPA Steel/NOREEN /[id number]
--- NOTE | 2019-06-21 09:56 | Progress Note ---
DATE: SUBJECTIVE: The patient is seen and evaluated. Available labs and notes reviewed. Discussed with case management. REVIEW OF SYSTEMS: Pain is controlled. No nausea, no vomiting, no fever, no chills. No chest pain or shortness of breath. Remains with poor appetite. PHYSICAL EXAMINATION: VITAL SIGNS: Temperature is 97, pulse is 80, respirations 18, and blood pressure 150/94. GENERAL: Alert and oriented, no acute distress. HEENT: Moist. No pallor. No JVD. Surgical site and local care, in no acute distress. Remains with PD line, overall weak. CV: S1-S2. CHEST: Equal expansion, clear to auscultation. No acute distress. ABDOMEN: Soft and nontender. No distention. MEDICATIONS: Medication history reviewed and as far as Infectious Disease point of view, on meropenem. LABORATORY STUDIES: No new CBC, however, BMP from today showed sodium 137, potassium 4.5 with creatinine of 4.4. The patient on PD (peritoneal dialysis). MICROBIOLOGY: No new microbiology studies available. Previous blood culture from 06/15 was negative. IMAGING: No new radiology studies available. ASSESSMENT AND PLAN: This is a pleasant 38-year-old gentleman with infected/nonfunctional kidney status post nephrectomy on the right site. Continue with local care and continue with IV antibiotic. 1. Urinary tract infection. 2. Diabetes. 3. Renal failure. 4. Pain improved and seems to be controlled. 5. Debility. 6. Continue with Merrem at this point. Taper antibiotics soon. The patient with severe debility, pending [facility]. Rehab evaluation and progress. Continue to monitor the patient clinically, follow with the labs. Please refer to chart for more information. Discussed with Dr. Blum in details. Dictated by Lonny Lomas PA-C (Al) Ciro Blum MD /MODL /[id number]
[2019-06-21] MEDS: MEROPENEM 500MG/ NS 50ML 50 ML IV SCH (09:58)
[2019-06-21] MEDS: PROMETHAZINE 12.5MG/ NACL 0.9% 12.5 MG/50 ML BAG IV PRN (11:29)
[2019-06-22] VITALS (7 sets, daily range): BP systolic 103–174; BP diastolic 68–98
[2019-06-22] MEDS: HYDROMORPHONE 1MG/1ML INJ IV PRN ×2 (03:09→06:08)
[2019-06-22 05:42] LABS: ALBUMIN 1.6 g/dL (3.5-5.0); ANION GAP 9.5 mmol/L (8-16); CALCIUM 7.7 mg/dL (8.4-10.2); CREATININE, SERUM 4.42 mg/dL (0.72-1.25); POTASSIUM 4.5 mmol/L (3.5-5.1)
[2019-06-22 06:41] LABS: CALCIUM IONIZED 1.1 mmol/L (1.09-1.30)
--- NOTE | 2019-06-22 07:00 | NUR ---
Bedside report and walking rounds completed with on coming nurse. Patient in bed and call light within reach. No issues or concerns noted.
[2019-06-22] MEDS: GABAPENTIN 300 MG CAP PO SCH ×2 (08:31→17:24)
[2019-06-22] MEDS: CALCITRIOL 0.25 MCG CAP PO SCH (08:31)
[2019-06-22] MEDS: MAGNESIUM OXIDE 400 MG TAB PO SCH ×2 (08:31→17:24)
[2019-06-22] MEDS: SENNA-S TABLET PO SCH ×2 (08:32→17:24)
[2019-06-22] MEDS: METOCLOPRAMIDE HCL 10 MG TAB PO SCH ×3 (08:32→17:24)
[2019-06-22] MEDS ORDERED: CALCIUM CARBONATE 500 MG CHEWABLE TABS PO SCH (09:00)
--- NOTE | 2019-06-22 09:35 | Progress Note ---
DATE: SUBJECTIVE: The patient is seen and evaluated, discussed with the nurse and discussed with case management. REVIEW OF SYSTEMS: No new complaints. No nausea, vomiting, fever, chills, chest pain, or shortness of breath. OBJECTIVE: VITAL SIGNS: Temperature is 98.4, pulse 84, respirations 20, and blood pressure 136/82. GENERAL: Alert and oriented, in no acute distress. CV: S1 and S2. CHEST: Equal expansion, clear to auscultation. No acute distress. ABDOMEN: Soft and nontender. No distention. HEENT: Moist. No pallor. No JVD. MEDICATIONS: Medication list reviewed. As far as Infectious Disease point of view, the patient is on meropenem. LABORATORY STUDIES: No new CBC available; however, BMP from today showed sodium 135, potassium 4.5, creatinine of 4.42. The patient is on peritoneal dialysis. MICROBIOLOGY: No new microbiology studies are available. IMAGING: No new radiology studies available. ASSESSMENT AND PLAN: 1. A pleasant 38-year-old gentleman with complicated past medical history, infected kidney on the right side and urinary tract infection, and now the patient is status post right-sided nephrectomy. 2. Renal failure-the patient on peritoneal dialysis. 3. Pyelonephritis. 4. May be local peritonitis. 5. Diabetes. 6. Debility. Continue with meropenem for 2 weeks. I wait [facility] Rehab approval. Discussed with case management. Discussed with Dr. Blum. Please refer to chart for more information. Dictated by Lonny Lomas PA-C (Al) Ciro Blum MD /MODL /[id number]
[2019-06-22] MEDS: INSULIN REGULAR, HUMAN 100 UNIT/1 ML 3ML VIAL SQ SCH ×4 (10:44→20:36)
[2019-06-22] MEDS: MEROPENEM 500MG/ NS 50ML 50 ML IV SCH (10:58)
[2019-06-22] MEDS: HYDROCODONE/APAP 10MG-325MG TAB PO PRN ×2 (11:48→19:25)
[2019-06-22] MEDS: PROMETHAZINE 12.5MG/ NACL 0.9% 12.5 MG/50 ML BAG IV PRN (11:48)
--- NOTE | 2019-06-22 14:55 | NUR ---
PT APPROVED FOR [facility] TODAY PER MAYKEL MOT INITIATED AND GIVEN TO NURSE TO CALL REPORT PT CLEARED BY DR TONY MAY FOR DC NURSE PLACED CALL TO DR LLOYD FOR DC ORDER BUT NO CALL BACK CM PLACED CALL TO DR LLOYD FOR DC ORDER MOT: ACCEPTING PHYSICIAN DR MARIELLE MATOS ACCEPTING LOOM OPERATOR SELVINWALDO DAVIS [address] [facility] [id number]
--- NOTE | 2019-06-22 19:30 | NUR ---
Bedside rounds completed with morning nurse. Pt laying in bed HOB 45 degrees. Pt c/o 10/02 rt flank pain, prn [place] admin. Call light within reach. Bed low and locked. Will continue to monitor.
--- NOTE | 2019-06-22 20:38 | NUR ---
Pt D/C'd to [facility] rehab via ambulance by stretcher. BS 329 mg/dL admin 12 units Humulin R. Pt alert and orient. c/o mild rt flank pain, previously medicated. Central line x2 in place. Suprapubic in place. Peritoneal Dialysis cath in place. MOT, D/C'd instructions given to ambulance.
--- NOTE | 2019-06-25 17:04 | Discharge Summary ---
CONSULTANTS: 1. Dr. Lew Karimi. 2. Dr. Castro Jalloh. 3. Dr. Ciro Blum. DISPOSITION: The patient is discharged to acute rehab at [facility]. FINAL DIAGNOSES: 1. Status post right radical nephrectomy secondary to pyelonephritis recently with chronic hydronephrosis with stent and recurrent urinary tract infection associated with urinary retention, neurogenic urinary bladder, suprapubic catheter. 2. End-stage renal disease, on peritoneal dialysis. 3. Baseline diabetes type 1 with advanced neuropathy. 4. Medical deconditioning. 5. Ambulatory dysfunction. 6. Abdominal pain, postoperative care. SUMMARY: The patient is a 38-year-old male with atrophic right kidney with right indwelling ureteral stent, chronic urinary retention, suprapubic cystostomy catheter. The patient underwent change of the cystostomy tube and then subsequently complicated right nephrectomy, complicated by severe adhesions and reaction around the chronically infected and chronically obstructed right kidney. The patient has also ureterotomy and removal of the indwelling ureteral stent as well. 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 The patient had multiple recurrent hospitalizations. He is now status post right nephrectomy in thinking that preventing the infection and also prepare the patient for renal transplant. The patient is on dialysis now. He is on peritoneal dialysis with end-stage renal disease. The patient has medical debility, difficulty walking without assistance, and also pain with increase in activity. The patient with medical debility, appropriate for the patient with extensive chronic medical problem and that he will require acute rehab to get him back to his baseline. At baseline, he is ambulatory with support of right cane. He had a right lower extremity surgery previously. The patient is stable. He will do be transferred to [facility] for acute rehab and also continue with IV antibiotics. The patient is otherwise stable at this time. He will continue with his treatment. The facility has peritoneal dialysis and the patient will be admitted to Dr. Parker, the door to door salesman. The patient is stable, discharged today, and he will be followed after he is discharged from the acute rehab. MD SADA Haywood/BRANDENL /[id number]
== END 2019-06-22 20:38 | DRG 660 ==
LOC: ER 11:02 → ERHOLD 11:12 → MED/SURG 16:23
PROVIDERS: ADMIT Internal Medicine; ATTEND Internal Medicine
PROC: 5A1D70Z Performance of Urinary Filtration, Intermittent, Less than 6 Hours Per Day (ICD-10-PCS; 2019-06-12)
PROC: 0TT00ZZ Resection of Right Kidney, Open Approach (ICD-10-PCS; principal; 2019-06-13 13:00)
DX: N12 Tubulo-interstitial nephritis, not specified as acute or chronic (principal); I12.0 Hypertensive chronic kidney disease with stage 5 chronic kidney disease or end stage renal disease; N13.6 Pyonephrosis; N18.6 End stage renal disease; E11.22 Type 2 diabetes mellitus with diabetic chronic kidney disease; Z99.2 Dependence on renal dialysis; E11.40 Type 2 diabetes mellitus with diabetic neuropathy, unspecified; Z79.4 Long term (current) use of insulin; E87.5 Hyperkalemia; R63.0 Anorexia; Z68.29 Body mass index [BMI] 29.0-29.9, adult
CPT/HCPCS: 36415; 51700; 71045; 71046; 80048; 80053; 80320; 81001; 82040; 82550; 82553; 82948; 83690; 83735; 83880; 83970; 84484; 85025; 87040; 88307; 93005; 96372; 97139; 99284; J0610; J0696; J1170; J1817; J2001; J2250; J2270; J2370; J2405; J2550; J2710; J3010; J7030; J7050

== ENCOUNTER 2019-08-04 19:47 | Inpatient (IN) | payer BC, OTHER ==
[~2019-08-04] VITALS: Ht 180.3 cm; Wt 95.3 kg
--- OUTSIDE RECORDS SUMMARY | 2019-08-04 20:01 | XMS REPORT | Clinical Summary ---
Author Author Alejandro Yazidi Organization [place] [facility] Address Unknown Phone Unavailable Care Team Providers Care Substation Inspector Name Role Phone Donald Potts MD PCP Allergies Comments Active Allergy Reactions Severity Noted Date CT contrast. IV dye. Excessive sneezing. Dye 03/17/2016 Medications End Date Status Medication Sig Dispensed Refills Start Date Active calcium carbonate (TUMS) Chew 1 tablet 0 200 mg calcium (500 mg) 3 (three) chewable tablet times daily after meals. Active cholecalciferol, vitamin Take 2,000 0 D3, (VITAMIN D3) 2,000 Units by unit capsule capsule mouth daily. Active insulin ASPART (NovoLOG) Inject 5 0 100 unit/mL injection Units under the skin 3 (three) times a day before meals. Active ergocalciferol (VITAMIN Take 50,000 0 D2) 50,000 unit capsule Units by mouth once a week. Active gabapentin (NEURONTIN) Take 300 mg 0 300 mg capsule by mouth 2 (two) times a day. Active SODIUM BICARBONATE ORAL Take 1,300 mg 0 by mouth 2 (two) times a day. Active NIFEdipine XL (PROCARDIA Take 30 mg by 0 XL) 30 MG 24 hr tablet mouth 2 (two) times a day. Active magnesium oxide (MAG-OX) Take 800 mg 0 400 mg (241.3 mg by mouth 2 magnesium) tablet (two) times a day. 10/18/2019 Active isoniazid (NYDRAZID) 300 Take 3 36 tablet 0 0 MG tablet tablets (900 0 mg total) by mouth once a week for 12 doses. 10/18/2019 Active rifapentine 150 mg tablet Take 6 72 each 0 tablets by 0 mouth once a week for 12 doses. 02/21/2019 Discontinued (Med List Clean up) ciprofloxacin (CIPRO) 500 Take 500 mg 0 MG tablet by mouth nightly. 02/21/2019 Discontinued (Med List Clean up) metoprolol tartrate Take 25 mg by 0 (LOPRESSOR) 25 mg tablet mouth 2 (two) times a day. 02/21/2019 Discontinued (Med List Clean up) AMLODIPINE BESYLATE Take 10 mg by 0 (AMLODIPINE ORAL) mouth every morning. 02/21/2019 Discontinued (Med List Clean up) DOXYCYCLINE HYCLATE ORAL Take 100 mg 0 by mouth 2 (two) times a day. 02/21/2019 Discontinued (Med List Clean up) LACTOBACILLUS ACIDOPHILUS Take 1 tablet 0 (PROBIOTIC ORAL) by mouth daily. 02/21/2019 Discontinued (Med List Clean up) insulin DETEMIR (LEVEMIR) Inject 30 0 100 unit/mL (3 mL) Units under insulin pen the skin nightly. 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 Pre-transplant evaluation for kidney and pancreas tra nsplant 04/06/2019 Diabetes mellitus type 1 02/21/2019 Instability of internal right knee prosthesis 2017 Infection of right knee 03/27/2016 Encounters Care Team Description Date Type Specialty Lan Johnson MD LTBI (latent tuberculosis infection) (Pr imary Dx) 08/01/2019 Telemedicine Infectious Diseases 08/01/2019 Travel Bisi Crawford RN 07/20/2019 Abstract Transplant Bisi Crawford RN End stage renal disease (HCC) (Primary D x); Type 1 diabetes mellitus with other specified complication (HCC) 07/20/2019 Orders Only Transplant 07/20/2019 Bisi Campbell RN Waitlist Status Update 06/28/2019 Telephone Transplant Melani Finney MA Speak to Coord 06/28/2019 Telephone Transplant Bisi Crawford RN Evaluation Status 05/17/2019 Telephone Transplant Yuan Weaver MD End stage renal disease (HCC); Type 1 diabetes mellitus with other specified complication (HCC) 05/03/2019 Hospital Radiology Encounter Yuan Weaver MD End stage renal disease (HCC); Type 1 diabetes mellitus with other specified complication (HCC) 05/03/2019 Hospital Radiology Encounter Yuan Weaver MD End stage renal disease (HCC); Type 1 diabetes mellitus with other specified complication (HCC) 05/03/2019 Lab Transplant Lorie Driver Kidney Eval (Consent Forms ) 04/13/2019 Documentation Transplant Bisi Crawford RN End stage renal disease (HCC) (Primary D x); Type 1 diabetes mellitus with other specified complication (HCC) 04/07/2019 Orders Only Transplant Yuan Weaver MD 04/06/2019 Social Work Transplant Yuan Weaver MD Type 1 diabetes mellitus with stage 4 ch ronic kidney disease (HCC) (Primary Dx) 04/06/2019 Office Visit Transplant Gaurav Vila Kidney Follow-up (TXP - [facility] - RENAL EVAL APPRVL) 03/29/2019 Documentation Transplant Bisi Crawford RN End stage renal disease (HCC) (Primary D x); Type 1 diabetes mellitus with other specified complication (HCC) 02/25/2019 Orders Only Transplant Melani Finney MA Referral - Kidney/Pancreas Txp 02/21/2019 Telephone Transplant after 2018 Family History Medical History Relation Name Comments Hypertension Maternal Grandmother Kidney disease Maternal Grandmother Diabetes Mother Relation Name Status Comments Maternal Grandmother Mother Social History Date Tobacco Use Types Packs/Day Years Used Never Smoker Smokeless Tobacco: Never Used Drinks/Week oz/Week Comments Alcohol Use No Sex Assigned at Date Recorded Not on file Industry Job Start Date Occupation Not on file Not on file Not on file Travel End Travel History Travel Start No recent travel history available. Date Recorded COVID-19 Exposure Response 08/01/2019 11:55 AM CDT In the last month, have you been in contact with No / Unsure someone who was confirmed or suspected to have Coronavirus / COVID-19? Last Filed Vital Signs Reading Time Taken Comments Vital Sign 182/98 04/06/2019 7:50 AM INCISING MACHINE OPERATOR pt states he has nt taken his meds today. Blood Pressure 90 04/06/2019 7:50 AM INCISING MACHINE OPERATOR Pulse 35.8 C (96.4 F) 04/06/2019 7:50 AM INCISING MACHINE OPERATOR Temperature 20 04/06/2019 7:50 AM INCISING MACHINE OPERATOR Respiratory Rate 99% 04/06/2019 7:50 AM INCISING MACHINE OPERATOR Oxygen Saturation - - Inhaled Oxygen Concentration 103 kg (228 lb) 05/03/2019 7:20 AM CDT Weight 180.3 cm (5' 11") 05/03/2019 7:20 AM CDT Height 31.8 05/03/2019 7:20 AM CDT Body Mass Index Plan of Treatment Health Maintenance Due Date Last Done Comments DIABETIC RETINAL EYE EXAM 1980 DIABETIC FOOT EXAM 1990 INFLUENZA VACCINE 09/24/2019 Implants Device Identifier Shelf Expiration Date Model / Serial / L ot Implanted Type Area Manufactur er 11/22/2025 [id number] / / [id number] Screw Bone Canc Dome 6.5x25mm Ltxf Hip Joint Right: Knee DEPUY [place] - [id number] Implants ORTHO Implanted: Qty: 1 on 03/27/2016 by Silke Chowdary MD at [facility] 01/22/2026 [id number] / / [id number] Screw Bone Canc Dome 6.5x25mm Ltxf Hip Joint Right: Knee DEPUY [place] - [id number] Implants ORTHO Implanted: Qty: 1 on 03/27/2016 by Silke Chowdary MD at [facility] 10/23/2026 [id number] / / [id number] [place] Stem [id number] Fluted - IPM Right: Knee DEPUY [id number] IMPLANT ORTHOPAEDI Implanted: Qty: 1 on 04/16/2017 by [employer] Silke Chowdary MD at [facility] 12/23/2026 [id number] / / [id number] [place] Fem Slv Ful Por 40mm - IPM Right: Knee DEPUY [id number] IMPLANT ORTHOPAEDI Implanted: Qty: 1 on 04/16/2017 by [employer] Silke Chowdary MD at [facility] 11/22/2025 [id number] / / [id number] Srom [facility] Dist Aug Xs/S/ 10mm - IPM Right: Knee DEPUY [id number] IMPLANT ORTHOPAEDI Implanted: Qty: 1 on 04/16/2017 by [employer] Silke Chowdary MD at [facility] 11/22/2024 [id number] / / [id number] [facility] Xs/S/ 10mm - IPM Right: Knee DEPUY [id number] IMPLANT ORTHOPAEDI Implanted: Qty: 1 on 04/16/2017 by [employer] Silke Chowdary MD at [facility] 10/23/2021 [id number] / / [id number] Srom Nrhfem W/Pin Med Rt 71x66 - IPM Right: Knee DEPUY [id number] IMPLANT ORTHOPAEDI Implanted: Qty: 1 on 04/16/2017 by [employer] Silke Chowdary MD at [facility] 10/24/2019 [id number] / / [id number] Lps Univ Tib Hin Ins Med 31mm - IPM Right: Knee DEPUY [id number] IMPLANT ORTHOPAEDI Implanted: Qty: 1 on 04/16/2017 by [employer] Silke Chowdary MD at [facility] 01/22/2026 [id number] / / [id number] Augment Fml P.F.C Sigma Distl Rt Sz Knee Joint Right: Kne e DEPUY 5 4mm - [id number] Implants ORTHO Implanted: Qty: 1 on 03/27/2016 by Silke Chowdary MD at [facility] 01/22/2026 [id number] / / [id number] Stem Tib Cementd [id number] P.F.C Knee Joint Right: Knee DEPUY Sigma - [id number] Implants ORTHO Implanted: Qty: 1 on 03/27/2016 by Silke Chowdary MD at [facility] 10/22/2020 [id number] / / [id number] Augment Fml P.F.C Sigma Distl Rt Sz Knee Joint Right: Kne e DEPUY 5 8mm - [id number] Implants ORTHO Implanted: Qty: 1 on 03/27/2016 by Silke Chowdary MD at [facility] 09/22/2025 [id number] / / [id number] Stem Tib Cementd [id number] Knee Joint Right: Knee DEPUY P.F.C.Sigma - [id number] Implants ORTHO Implanted: Qty: 1 on 03/27/2016 by Silke Chowdary MD at [facility] 12/23/2020 [id number] / / [id number] Patella Prosths Oval / Dome 3-Post Knee Joint Right: Knee DEPUY 38mm Std Uhmwpe - [id number] Implants ORTHO Implanted: Qty: 1 on 03/27/2016 by Silke Chowdary MD at [facility] 05/23/2020 [id number] / / [id number] Insert Tib Stblzd Rp Sz 5 25mm Knee Joint Right: Knee DEPUY P.F.C Sigma - [id number] Implants ORTHO Implanted: Qty: 1 on 03/27/2016 by Silke Chowdary MD at [facility] 02/22/2026 [id number] / / [id number] Tray Rev Mbt 5x53.1x80.6x61.8mm - Knee Joint Right: Knee DEPUY [id number] Implants ORTHO Implanted: Qty: 1 on 03/27/2016 by Silke Chowdary MD at [facility] 09/22/2025 [id number] / / [id number] Component Fml Rt N-Por Tc3 Sz 5 Knee Joint Right: Knee DEPUY [id number] P.F.C Sigma - [id number] Implants ORTHO Implanted: Qty: 1 on 03/27/2016 by Silke Chowdary MD at [facility] 01/22/2026 [id number] / / [id number] Adapter Fml P.F.C Sigma 5deg - Knee Joint Right: Knee DEPUY [id number] Implants ORTHO-KNEE Implanted: Qty: 1 on 03/27/2016 by Silke Gutierres MD at [facility] 11/22/2025 [id number] / / [id number] Adapter Fml P.F.C Sigma Ofst [place] Knee Joint Right: Knee DEPUY +2/-2mm - [id number] Implants ORTHO-KNEE Implanted: Qty: 1 on 03/27/2016 by Silke Gutierres MD at [facility] 01/22/2017 [id number] / / [id number] Cement Bone Hiviscocty 40gr Surgical Right: Knee DE PUY Smartset - [id number] Bone ORTHO Implanted: Qty: 2 on 03/27/2016 by Silke Monge MD at [facility] 12/23/2016 [id number] / / [id number] Cement Bone Hiviscocty 40gr Surgical Right: Knee DE PUY Smartset - [id number] Bone ORTHO Implanted: Qty: 1 on 03/27/2016 by Silke Monge MD at [facility] 10/23/2018 [id number] / / [id number] Cement Bone Hiviscocty 40gr Surgical Right: Knee DE PUY Smartset - [id number] Bone ORTHO Implanted: 04/16/2017 at [facility] (Quantity not on file) 12/24/2020 [id number] / / [id number] Cement Bone Prep Univl Insrtr Sculp Surgical Right: Kne e SANDOR Fml [place] Suct Sm - [id number] Implants; IN STRUMENT Implanted: Qty: 1 on 03/27/2016 by [employer]; S Silke Chowdary MD at [facility] Extenders; Surgical Wires [id number] / / Immobilizer Knee Tripnl Dlx W/ Patl Surgical N/A: N/A DEROYAL Strp Univl Canvas 24in - [id number] Implants; IN DUSTRIES Implanted: 04/16/2017 at [facility] [employer]; HOSPITAL (Quantity not on file) Extenders; Surgical Wires Procedures Comments Procedure Name Priority Date/Time Associated Diag nosis CARDIOLIPIN ANTIBODIES Routine 08/01/2019 End sta ge renal disease 12:17 PM CDT (HCC) Type 1 diabetes mellitus with other specified complication (HCC) XR CHEST 2 VW Routine 05/03/2019 End stage renal disease 9:35 AM CDT (HCC) Type 1 diabetes mellitus with other specified complication (HCC) CT ABDOMEN PELVIS WO Routine 05/03/2019 End stage renal disease CONTRAST 9:28 AM CDT (HCC) Type 1 diabetes mellitus with other specified complication (HCC) MISCELLANEOUS REFERRAL Routine 05/03/2019 TEST 8:30 AM CDT MISCELLANEOUS REFERRAL Routine 05/03/2019 TEST 8:30 AM CDT C1Q CLASS 1 & 2 ANTIBODY Routine 05/03/2019 8:30 AM CDT HLA AUTOLOGOUS CROSSMATCH Routine 05/03/2019 8:30 AM CDT SINGLE ANTIGEN BEADS Routine 05/03/2019 8:30 AM CDT LOW RESOLUTION FULL Routine 05/03/2019 TYPING BY SSO 8:30 AM CDT ESTIMATED GFR Routine 05/03/2019 8:30 AM CDT AMYLASE LEVEL Routine 05/03/2019 End stage renal disease 8:30 AM CDT (HCC) Type 1 diabetes mellitus with other specified complication (HCC) LUPUS ANTICOAGULANT PANEL Routine 05/03/2019 End stage renal disease 8:30 AM CDT (HCC) Type 1 diabetes mellitus with other specified complication (HCC) FIBRINOGEN Routine 05/03/2019 End stage renal disease 8:30 AM CDT (HCC) Type 1 diabetes mellitus with other specified complication (HCC) MTHFR MUTATION Routine 05/03/2019 End stage renal disease 8:30 AM CDT (HCC) Type 1 diabetes mellitus with other specified complication (HCC) CARDIOLIPIN ANTIBODIES Routine 05/03/2019 End sta ge renal disease 8:30 AM CDT (HCC) Type 1 diabetes mellitus with other specified complication (HCC) FUNCTIONAL PROTEIN S Routine 05/03/2019 End stage renal disease 8:30 AM CDT (HCC) Type 1 diabetes mellitus with other specified complication (HCC) FUNCTIONAL PROTEIN C Routine 05/03/2019 End stage renal disease 8:30 AM CDT (HCC) Type 1 diabetes mellitus with other specified complication (HCC) ANTITHROMBIN III LEVEL Routine 05/03/2019 End sta ge renal disease 8:30 AM CDT (HCC) Type 1 diabetes mellitus with other specified complication (HCC) HOMOCYSTINE, PLASMA Routine 05/03/2019 End stage renal disease 8:30 AM CDT (HCC) Type 1 diabetes mellitus with other specified complication (HCC) TB T-SPOT Routine 05/03/2019 End stage renal disease 8:30 AM CDT (HCC) Type 1 diabetes mellitus with other specified complication (HCC) ABORH - TRANSPLANT Routine 05/03/2019 End stage r enal disease 8:30 AM CDT (HCC) Type 1 diabetes mellitus with other specified complication (HCC) PARATHYROID HORMONE Routine 05/03/2019 End stage renal disease 8:30 AM CDT (HCC) Type 1 diabetes mellitus with other specified complication (HCC) HSV 1 & 2 GLYCOPROTEIN G Routine 05/03/2019 End s tage renal disease AB, IGG 8:30 AM CDT (HCC) Type 1 diabetes mellitus with other specified complication (HCC) HSV TYPE 1/2 COMBINED AB, Routine 05/03/2019 End stage renal disease IGM 8:30 AM CDT (HCC) Type 1 diabetes mellitus with other specified complication (HCC) HELDER-PETIT VIRUS Routine 05/03/2019 End stage r enal disease ANTIBODY TEST 8:30 AM CDT (HCC) Type 1 diabetes mellitus with other specified complication (HCC) CYTOMEGALOVIRUS AB, IGM Routine 05/03/[address] age renal disease 8:30 AM CDT (HCC) Type 1 diabetes mellitus with other specified complication (HCC) CYTOMEGALOVIRUS AB, IGG Routine 05/03/[address] age renal disease 8:30 AM CDT (HCC) Type 1 diabetes mellitus with other specified complication (HCC) LDH Routine 05/03/2019 End stage renal disease 8:30 AM CDT (HCC) Type 1 diabetes mellitus with other specified complication (HCC) PHOSPHORUS LEVEL Routine 05/03/2019 End stage madiha al disease 8:30 AM CDT (HCC) Type 1 diabetes mellitus with other specified complication (HCC) CREATININE LEVEL Routine 05/03/2019 End stage madiha al disease 8:30 AM CDT (HCC) Type 1 diabetes mellitus with other specified complication (HCC) GLUCOSE LEVEL Routine 05/03/2019 End stage renal disease 8:30 AM CDT (HCC) Type 1 diabetes mellitus with other specified complication (HCC) TRIGLYCERIDES Routine 05/03/2019 End stage renal disease 8:30 AM CDT (HCC) Type 1 diabetes mellitus with other specified complication (HCC) CHOLESTEROL Routine 05/03/2019 End stage renal disease 8:30 AM CDT (HCC) Type 1 diabetes mellitus with other specified complication (HCC) URINE CULTURE Routine 04/06/2019 8:57 AM INCISING MACHINE OPERATOR TREPONEMA PALLIDUM AB Routine 04/06/2019 8:00 AM INCISING MACHINE OPERATOR RPR Routine 04/06/2019 8:00 AM INCISING MACHINE OPERATOR HEPATITIS A ANTIBODY IGM Routine 04/06/2019 8:00 AM INCISING MACHINE OPERATOR ESTIMATED GFR Routine 04/06/2019 8:00 AM INCISING MACHINE OPERATOR DRUG YUEN 9, SER/LILIAN, SCRN Routine 04/06/2019 End stage renal disease W/RFLX TO CONF 8:00 AM INCISING MACHINE OPERATOR (HCC) Type 1 diabetes mellitus with other specified complication (HCC) ABO/RH Routine 04/06/2019 End stage renal disease 8:00 AM INCISING MACHINE OPERATOR (HCC) Type 1 diabetes mellitus with other specified complication (HCC) NICOTINE AND COTININE, Routine 04/06/2019 End sta ge renal disease SERUM 8:00 AM INCISING MACHINE OPERATOR (HCC) Type 1 diabetes mellitus with other specified complication (HCC) IA-2 ANTIBODY Routine 04/06/2019 End stage renal disease 8:00 AM INCISING MACHINE OPERATOR (HCC) Type 1 diabetes mellitus with other specified complication (HCC) ISLET CELL AB, IGG Routine 04/06/2019 End stage r enal disease 8:00 AM INCISING MACHINE OPERATOR (HCC) Type 1 diabetes mellitus with other specified complication (HCC) GLUTAMIC ACID Routine 04/06/2019 End stage renal disease DECARBOXYLASE AB 8:00 AM INCISING MACHINE OPERATOR (HCC) Type 1 diabetes mellitus with other specified complication (HCC) HEMOGLOBIN A1C Routine 04/06/2019 End stage renal disease 8:00 AM INCISING MACHINE OPERATOR (HCC) Type 1 diabetes mellitus with other specified complication (HCC) C-PEPTIDE Routine 04/06/2019 End stage renal disease 8:00 AM INCISING MACHINE OPERATOR (HCC) Type 1 diabetes mellitus with other specified complication (HCC) PARTIAL THROMBOPLASTIN Routine 04/06/2019 End sta ge renal disease TIME (PTT) 8:00 AM INCISING MACHINE OPERATOR (HCC) Type 1 diabetes mellitus with other specified complication (HCC) PROTHROMBIN TIME WITH INR Routine 04/06/2019 End stage renal disease 8:00 AM INCISING MACHINE OPERATOR (HCC) Type 1 diabetes mellitus with other specified complication (HCC) HC COMPLETE BLD COUNT Routine 04/06/2019 End stag e renal disease W/AUTO DIFF 8:00 AM INCISING MACHINE OPERATOR (HCC) Type 1 diabetes mellitus with other specified complication (HCC) SYPHILIS TOTAL ANTIBODY Routine 04/06/[address] age renal disease 8:00 AM INCISING MACHINE OPERATOR (HCC) Type 1 diabetes mellitus with other specified complication (HCC) HEPATITIS C ANTIBODY Routine 04/06/2019 End stage renal disease 8:00 AM INCISING MACHINE OPERATOR (HCC) Type 1 diabetes mellitus with other specified complication (HCC) HEPATITIS B SURFACE Routine 04/06/2019 End stage renal disease ANTIGEN 8:00 AM INCISING MACHINE OPERATOR (HCC) Type 1 diabetes mellitus with other specified complication (HCC) HEPATITIS B SURFACE AB, Routine 04/06/[address] age renal disease QUANTITATIVE 8:00 AM INCISING MACHINE OPERATOR (HCC) Type 1 diabetes mellitus with other specified complication (HCC) HEPATITIS B CORE ANTIBODY Routine 04/06/2019 End stage renal disease TOTAL 8:00 AM INCISING MACHINE OPERATOR (HCC) Type 1 diabetes mellitus with other specified complication (HCC) HEPATITIS A ANTIBODY Routine 04/06/2019 End stage renal disease TOTAL 8:00 AM INCISING MACHINE OPERATOR (HCC) Type 1 diabetes mellitus with other specified complication (HCC) HIV AG/AB COMBINATION Routine 04/06/2019 End stag e renal disease 8:00 AM INCISING MACHINE OPERATOR (HCC) Type 1 diabetes mellitus with other specified complication (HCC) URINALYSIS SCREEN AND Routine 04/06/2019 End stag e renal disease MICROSCOPY, WITH REFLEX 8:00 AM INCISING MACHINE OPERATOR (HCC) TO CULTURE Type 1 diabetes mellitus with other specified complication (HCC) COMPREHENSIVE METABOLIC Routine 04/06/[address] age renal disease PANEL 8:00 AM INCISING MACHINE OPERATOR (HCC) Type 1 diabetes mellitus with other specified complication (HCC) after 2018 Results * Cardiolipin antibodies (08/01/2019 12:17 PM CDT) Only the most recent of 2 results within the time period is included. Cardiolipin IgG 5 0 - 14 [facility] Comment: [facility] Negative <15 [facility] Indeterminate 15-20 [facility] Positive >20 [facility] Cardiolipin IgM 7 0 - 12 [facility] Comment: [place] Negative <13 [facility] Indeterminate 13-20 M[facility] Positive >20 M[facility] Specimen Blood Performing Organization Address [facility] Ph one Number [facility] DEPARTMENT OF [address] [place] [address] PATHOLOGY AND GENOMIC MEDICINE [facility] [address] [place] [address] HOSPITAL * XR Chest 2 Vw (05/03/2019 9:35 AM CDT) Specimen Narrative Performed At EXAMINATION: XR CHEST 2 VW [facility] CLINICAL HISTORY: N18.6 End stage madiha al disease, E10.69 Type 1 diabetes mellitus with other specified complicat ion, Routine CXR pre-op no clinical concern from hx and physical COMPARISON: None IMPRESSION: The cardiomediastinal silhouette is nor mal in appearance. The lungs are clear. There is no eviden ce of consolidation, congestion, or pneumothorax. A pleural effusion is not present. Visualized skeletal structures demonstr ate no definite abnormality. Negative examination. [facility]-[id number] Procedure Note Interface, Radiology Results Incoming - 05/03/2019 9:40 AM CDT EXAMINATION: XR CHEST 2 VW CLINICAL HISTORY: N18.6 End stage renal disease, E10.69 Type 1 diabetes mellitus with other specified complication, Routine CXR pre-op no clinical concern from hx and physical COMPARISON: None IMPRESSION: The cardiomediastinal silhouette is normal in appearance. The lungs are clear. There is no evidence of consolidation, congestion, or pneumothorax. A pleural effusion is not present. Visualized skeletal structures demonstrate no definite abnormality. Negative examination. [facility]-[id number] Performing Organization Address [facility] Ph [facility] Number [facility] [address] [place] [address] * CT Abdomen Pelvis Wo Contrast (05/03/2019 9:28 AM CDT) Specimen Narrative Performed At EXAMINATION: CT ABDOMEN PELVIS WO CONTRAST HM [facility] CLINICAL HISTORY: N18.6 End stage renal disease, E10.69 Type 1 diabetes mellitus with other specified complication, pre kidney pancreas transplant TECHNIQUE: Multiple axial images of the abdomen and pelvis were obtained without intravenous contrast administration. Sa gittal and coronal computerized reformatted images were created from th e data set. CT imaging is performed using radiation dose reduction techniques. Technical factors are evaluated and adjusted to e nsure appropriate moderation of exposure such as the use of iterative reconstruc tion techniques and/or automated exposure control to reduce radiation dose. Evaluation of solid organs and vasculat ure is limited without the administration of intravenous contrast. COMPARISON: None FINDINGS: Lower Thorax: Unremarkable Stomach: Normal Small Bowel: Normal Colon: Scattered descending and sigmoid colonic diverticulosis without evidence of acute diverticulitis Appendix: No appendicitis Liver: Normal Gallbladder and biliary tree: Cholecyst ectomy. No abnormal biliary ductal dilatation seen. Spleen: Normal Pancreas: Atrophic appearance with mult iple coarse calcifications. Adrenals: Normal Kidneys and ureters: Mild prominence of the left renal pelvis and ureter. A right-sided double-J ureteral stent is seen extending from the right renal pelvis to the bladder. Bladder: Bladder wall is significantly thickened. Bladder is underdistended and catheterized via a suprapubic catheter. Reproductive Organs: Normal Lymph Nodes: Enlarged right greater jeff n left inguinal lymph nodes. No enlarged adenopathy within the abdomen or pelvis . Peritoneum/Retroperitoneum: No free flu id. No free air. No abnormal nodularity. Vessels: Evaluation of the vasculature is limited without the presence of IV contrast. Normal caliber noncontrast si lhouette of the abdominal aorta. Musculoskeletal: Mild hazy opacity of t he osseous structures may indicate renal osteodystrophy. IMPRESSION: *Urinary bladder wall is significantly thickened, which may indicate chronic cystitis. There is a suprapubic cathete r in place. *A right-sided double-J ureteral stent is in place. *Coarse pancreatic parenchymal calcific ations, suggestive of prior bouts of pancreatitis. *Colonic diverticulosis without evidenc e of diverticulitis. *Enlarged right greater than left ingui nal lymph nodes, nonspecific though may be reactive. [id number] Procedure Note Interface, Radiology Results Incoming - 05/03/2019 9:40 AM CDT EXAMINATION: CT ABDOMEN PELVIS WO CONTRAST CLINICAL HISTORY: N18.6 End stage renal disease, E10.69 Type 1 diabetes mellitus with other specified complication, pre kidney pancreas transplant TECHNIQUE: Multiple axial images of the abdomen and pelvis were obtained without intravenous contrast administration. Sagittal and coronal computerized reformatted images were created from the data set. CT imaging is performed using radiation dose reduction techniques. Technical factors are evaluated and adjusted to ensure appropriate moderation of exposure such as the use of iterative reconstruction techniques and/or automated exposure control to reduce radiation dose. Evaluation of solid organs and vasculature is limited without the administration of intravenous contrast. COMPARISON: None FINDINGS: Lower Thorax: Unremarkable Stomach: Normal Small Bowel: Normal Colon: Scattered descending and sigmoid colonic diverticulosis without evidence of acute diverticulitis Appendix: No appendicitis Liver: Normal Gallbladder and biliary tree: Cholecystectomy. No abnormal biliary ductal dilatation seen. Spleen: Normal Pancreas: Atrophic appearance with multiple coarse calcifications. Adrenals: Normal Kidneys and ureters: Mild prominence of the left renal pelvis and ureter. A right-sided double-J ureteral stent is seen extending from the right renal pelvis to the bladder. Bladder: Bladder wall is significantly thickened. Bladder is underdistended and catheterized via a suprapubic catheter. Reproductive Organs: Normal Lymph Nodes: Enlarged right greater than left inguinal lymph nodes. No enlarged adenopathy within the abdomen or pelvis. Peritoneum/Retroperitoneum: No free fluid. No free air. No abnormal nodularity. Vessels: Evaluation of the vasculature is limited without the presence of IV contrast. Normal caliber noncontrast silhouette of the abdominal aorta. Musculoskeletal: Mild hazy opacity of the osseous structures may indicate renal osteodystrophy. IMPRESSION: *Urinary bladder wall is significantly thickened, which may indicate chronic cystitis. There is a suprapubic catheter in place. *A right-sided double-J ureteral stent is in place. *Coarse pancreatic parenchymal calcifications, suggestive of prior bouts of pancreatitis. *Colonic diverticulosis without evidence of diverticulitis. *Enlarged right greater than left inguinal lymph nodes, nonspecific though may be reactive. [id number] Performing Organization Address City/State/Zipcode Ph one Number [facility] [address] [place] [address] * Low resolution full typing by SSO (05/03/2019 8:30 AM CDT) Interpretation Note: HLA typing was performed [facility] by PCR-SSO DNA based [place] procedures. HOSPITAL Note: The serological phenotype is an interpretation based on molecular typing data. [facility] Low resolution See link below for PDF Lab [place] full typing by Report [facility] Specimen Blood Performing Organization Address [facility] one Number [facility] DEPARTMENT OF [address] [place] [address] PATHOLOGY AND GENOMIC MEDICINE [address] * C1Q class 1 & 2 antibody (05/03/2019 8:30 AM CDT) [facility] C1Q class 1 & 2 See link below for PDF Lab [place] antibody Report [facility] Specimen Blood Performing Organization Address [facility] one Number [facility] DEPARTMENT OF [address] [place] [address] PATHOLOGY AND GENOMIC [facility] * Estimated GFR (05/03/2019 8:30 AM CDT) Only the most recent of 2 results within the time period is included. [facility] Estimated GFR 16 (A) mL/min/1.73 m2 [place] Comment: [facility] [place] Interpretation G1 >=90 Normal or high G2 60-89 Mildly decreased G3a 45-59 Mildly to moderately decreased G3b 30-44 Moderately to severely decreased G4 15-29 Severely decreased G5 <15 Kidney failure The eGFR was calculated using the Chronic Kidney Disease Epidemiology Collaboration (CKD-EPI) equation. Interpretation is based on recommendations of the National Kidney Foundation-Kidney Disease Outcomes Quality Initiative (NKF-KDOQI) published in 2014. Specimen Plasma specimen Performing Organization Address [facility] one Number [facility] DEPARTMENT OF [address] [place] [address] PATHOLOGY AND GENOMIC MEDICINE [address] * HSV 1 & 2 glycoprotein G Ab, IgG (05/03/2019 8:30 AM CDT) [facility] HSV 1 NegativeComment: Negative: No Negative [facility] glycoprotein G IgG antibodies to HSV1 [place] Ab, IgG detected. HOSPITAL HSV 2 NegativeComment: Negative: No Negative [facility] glycoprotein G IgG antibodies to HSV2 [place] Ab, IgG detected. HOSPITAL Specimen Serum Performing Organization Address [facility] Ph one Number [facility] DEPARTMENT OF [address] [place] [address] PATHOLOGY AND GENOMIC MEDICINE [address] * Helder-Petit virus antibody test (05/03/2019 8:30 AM CDT) Pathologist [facility] EBV Ab to viral Positive (A) Negative [facility] capsid Ag, IgG [facility] EBV Ab to viral Negative Negative [place] capsid Ag, IgM [facility] EBV Ab to Positive (A) Negative [place] nuclear Ag, IgG [facility] EBV Ab to early Negative Negative [facility] (D) Ag, IgG [facility] Helder-Petit SEE COMMENTComment: Infection [facility] virus antibody Status: Results may suggest [place] interpretation past EBV infection. HOSPITAL Specimen Serum Performing Organization Address City/[facility] Ph one Number [facility] DEPARTMENT OF [address] [place] [address] PATHOLOGY AND GENOMIC MEDICINE [address] * TB T-SPOT (05/03/2019 8:30 AM CDT) Pathologist [facility] TB T-SPOT SEE NOTE [facility] - GRAVISS Comment: REF LAB T-SPOT TUBERCULOSIS Nil Control: 1 Panel A: 11 Panel B: 6 Positive Control: SAT Result: POSITIVE NOTE: TMTC INDICATES TOO MANY SPOTS TO COUNT SAT INDICATES THE WELL WAS SATURATED RESULTS INTERPRETATION: RESULTS ARE NEGATIVE WHEN (PANEL A-NIL) OR (PANEL B-NIL) <= 4 SPOTS, INCLUDING VALUES LESS THAN ZERO. RESULTS ARE POSITIVE WHEN (PANEL A-NIL) OR (PANEL B-NIL) >= 8 SPOTS RESULTS ARE BORDERELINE WHEN EITHER (PANEL A-NIL) OR (PANEL B-NIL) = 5,6,0R 7. THE TEST IS INVALID WHEN EITHER OF THE FOLLOWING CONDITIONS IS MET: 1.) THE NIL CONTROL HAS >10 SPOTS 2.) THE MITOGEN (POSITIVE CONTROL) HAS <20 SPOTS AND BOTH (PANEL A-NIL) AND (PANEL B-NIL) <= 4 SPOTS. M. TUBERCULOSIS INFECTION UNLIKELY, BUT CANNOT BE EXCLUDED ESPECIALLY WHEN: 1. ANY ILLNESS IS CONSISTENT WITH TB DISEASE. 2. LIKELIHOOD OF PROGRESSION TO DISEASE (e.g. DUE TO IMMUNOSUPPRESSION) IS INCREASED. LIMITATIONS: DIAGNOSING OR EXCLUDING TUBERCULOSIS DISEASE, AND ASSESSING THE PROBABILITY OF LTBI, REQUIRES A COMBINATION OF EPIDEMIOLOGICAL, HISTORICAL, MEDICAL, AND DIAGNOSTIC FINDINGS THAT SHOULD BE TAKEN INTO ACCOUNT WHEN INTERPRETING T-SPOT.TB REFER TO THE MOST RECENT CDC GUIDANCE (HTTP: //WWW.CDC.GOV/[email or web address]/TB) FOR DETAILED RECOMMENDATIONS ABOUT DIAGNOSING TB INFECTION (INCLUDING DISEASE) AND SELECTING PERSONS FOR TESTING. 1.) A FALSE NEGATIVE RESULT CAN BE CAUSED BY INCORRECT BLOOD SAMPLE COLLECTION OR IMPROPER HANDLING OF THE SPECIMEN, AFFECTING LYMPHOCYTE FUNCTION 2.) THE PERFORMANCE OF T-SPOT.TB HAS NOT BEEN ADEQUATELY EVALUATED WITH SPECIMENS FROM INDIVIDUALS YOUNGER THAN AGE 17 YEARS, IN WOMEN, AND IN PATIENTS WITH HEMOPHILIA. 3-) A FALSE POSITIVE RESULT WAS OBTAINED FOR T-SPOT.TB WHEN TESTED IN SUBJECTS WITH M. XENOPI, M. KANSASII, AND M. GORDONAE. WHILE ESAT-6 AND CFP-10 ANTIGENS ARE ABSENT FROM BCG STRAINS OF M. BOVIS AND FROM MOST ENVIRONMENTAL MYCOBACTERIA, IT IS POSSIBLE THAT A POSITIVE T-SPOT.TB RESULT MAY BE DUE TO INFECTION WITH M. KANSASII, M. SZULGAI, M. GORDONAE, OR M. MARINUM. ALTERNATIVE TESTS WOULD BE REQUIRED IF THESE INFECTIONS ARE SUSPECTED. 4.) A NEGATIVE TEST RESULT DOES NOT EXCLUDE THE POSSIBILITY OF EXPOSURE TO, OR INFECTION WITH, M. TUBERCULOSIS. PATIENTS WITH RECENT EXPOSURE TO TB INFECTED INDIVIDUALS EXHIBITING A NEGATIVE T-SPOT.TB RESULT SHOULD BE CONSIDERED FOR RETESTING WITHIN 6 WEEKS OR IF OTHER RELEVANT CLINICAL SYMPTOMS INDICATE POSSIBLE INFECTION. 5.) A POSITIVE TEST RESULT DOES NOT RULE IN ACTIVE TB DISEASE; OTHER TESTS SHOULD BE PERFORMED TO CONFIRM THE DIAGNOSIS OF ACTIVE TB DISEASE SUCH SPUTUM SMEAR AND CULTURE, PCR AND CHEST RADIOGRAPHY. 6.) T-SPOT.TB TEST HAS NOT BEEN EVALUATED IN SUBJECTS WHO HAVE RECEIVED >1 MONTH OF ANTI-TB THERAPY. 7. ) REFRIGERATED AND FROZEN SAMPLES ARE NOT RECOMMENDED FOR USE WITH T=SPOT.TB TEST. Performed by: [facility] Molecular Tuberculosis Laboratory [facility] ([id number]) [place], [place] [address] Specimen Blood Performing Organization Address City/State/Zipcomt Ph one Number [facility] DEPARTMENT OF [address] [place] [address] PATHOLOGY AND GENOMIC MEDICINE [facility] * Single antigen beads (05/03/2019 8:30 AM CDT) Pathologist [facility] interpretation information: [place] DP1=DPB1*01:01/DPA1*02:01 HOSPITAL DP5=DPB1*05:01/DPA1*02:02 DQ9=DQB1*03:03/DQA1*02:01 UJ72=VRL5*01:03 IR30=DAQ3*01:01 DR51 is a self-antigen [facility] serum ID [id number] [facility] SAB serum 05/03/2019 08:30 AM [place] collection D&T [facility] SAB class I Negative [facility] antibody [facility] SAB cPRA class 0 [facility] SAB class II DP1,DR10,DP5,DR53,DR51,DQ9 [facility] antibody [facility] SAB cPRA class 74 [facility] Single antigen See link below for PDF Lab [facility] Specimen Blood Performing Organization Address City/State/Zipcode Ph one Number [facility] DEPARTMENT OF [address] [place] [address] PATHOLOGY AND GENOMIC MEDICINE [address] * Miscellaneous referral test (05/03/2019 8:30 AM CDT) Only the most recent of 2 results within the time period is included. Misc test name PTNT LEMA SHOWN ABOVE Misc test SEE NOTE SHOWN ABOVE result Comment: Report Status: FINAL Prothrombin [id number] Mutation, B PTNT Interpretation This individual DOES NOT have the Prothrombin [id number] mutation. Although the Prothrombin [id number] mutation is absent, the individual may have other genetic and environmental risk factors for thrombosis. Consider genetic consultation and counseling of potentially affected family members regarding laboratory testing. ADDITIONAL INFORMATION This test is a direct mutation analysis using PCR amplification, signal generation and release by cleavage of sequence specific alleles ([employer], [employer], [place], [place]). .............................. .............................. Prothrombin [id number] Mutation, B Negative Reference Value: Negative .............................. .............................. PTNT Reviewed By DARRYL Oneil - - - - - - - - - - - - - - - - - - - - - - - - - - - - - - Laboratory Notes: This test has been modified from the cso's instructions. Its performance characteristics were determined by [facility] in a manner consistent with CLIA requirements. This test has not been cleared or approved by the U.S. Food and Drug Administration. + + : PERFORMING SITE LEGEND : + + : : [facility] : : : [address] [place] [address] : + + Specimen Narrative Performed At Prothrombin [id number] Mutation [facility] DEPARTMENT OF [facility] Test ID: PTNT PATHOLOGY AND Source: Whole Blood GENOMIC MEDICINE Performing Organization Address City/[facility]/Zipcode Ph one Number [facility] DEPARTMENT OF [address] [place] [phone] PATHOLOGY AND GENOMIC MEDICINE SHOWN ABOVE * HSV type 1/2 combined Ab, IgM (05/03/2019 8:30 AM CDT) [facility] HSV 1/2 0.71 <=0.89 IV [facility] REF LAB combined Ab, Comment: IgM INTERPRETIVE INFORMATION: Herpes Simplex Virus Type 1 and/or 2 Antibodies, IgM by [place] 0.89 IV or Less .......... Not Detected 0.90 - 1.09 IV ........... Indeterminate- Repeat testing in 10-14 days may be helpful. 1.10 IV or Greater ....... Detected-IgM antibody to HSV detected, which may indicate a current or recent infection. However, low levels of IgM antibodies may occasionally persist for more than 12 months post-infection. Performed by [facility], [address] [place] [id number] [email or web address], Trung Boyer MD, Lab. Director Specimen Serum Performing Organization Address [facility] Cent[facility] Ph one Number [facility] [address] [place] [id number] RE[facility] [address] [place] [address] * Homocystine, plasma (05/03/2019 8:30 AM CDT) [facility] Homocysteine 17.5 (H) 0.0 - 15.0 umol/L [facility] Comment: [place] The risk for coronary vascular HOSPITAL disease increases progressively with homocysteine concentration. A 3.4 times greater risk is associated with a homocysteine concentration of greater than 15.8 umol/L as compared to a concentration below 14.1 umol/L. Specimen Plasma specimen Performing Organization Address [facility] Ph one Number [facility] DEPARTMENT OF [address] [place] [address] PATHOLOGY AND GENOMIC MEDICINE [address] * HLA autologous crossmatch (05/03/2019 8:30 AM CDT) [facility] source Peripheral Blood [facility] current [id number] [facility] serum ID [facility] AXL serum 05/03/2019 08:30 AM [place] collection D&T [facility] flow XM T Negative [facility] cell result, [facility] flow XM B Negative [facility] cell result, [facility] HLA autologous See link below for PDF Lab [place] crossmatch Report [facility] Specimen Blood Performing Organization Address City/[facility] Cent[facility]ode Ph one Number [facility] DEPARTMENT OF [address] [place] [address] PATHOLOGY AND GENOMIC MEDICINE [address] * Cytomegalovirus Ab, IgM (05/03/2019 8:30 AM CDT) Pathologist [facility] Cytomegalovirus Negative Negative [facility] Ab, IgM [facility] Specimen Serum Performing Organization Address City/[facility] Cent[facility]ode Ph one Number [facility] DEPARTMENT OF [address] [place] [address] PATHOLOGY AND GENOMIC MEDICINE [address] * ABORh - transplant (05/03/2019 8:30 AM CDT) Pathologist [facility] ABO grouping O [facility] Rh type POS [facility] Specimen Blood Performing Organization Address City/[facility] Ph one Number [facility] DEPARTMENT OF [address] [place] [address] PATHOLOGY AND GENOMIC MEDICINE [address] * Functional protein S (05/03/2019 8:30 AM CDT) Pathologist [facility] 91 74 - 160 % [facility] protein S Comment: [place] Functional Protein S HOSPITAL performed. If result is decreased Total and Free Protein S Antigen will be performed. Specimen Blood Performing Organization Address City/[facility] Ph one Number [facility] DEPARTMENT OF [address] [place] [address] PATHOLOGY AND GENOMIC MEDICINE [address] * Functional protein C (05/03/2019 8:30 AM CDT) Functional 56 (L) 70 - 165 % [facility] protein C Comment: [place] Low Protein C Activity and HOSPITAL prolonged Prothrombin time consistent with vitamin K deficiency, warfarin therapy or liver disease. Recommend repeating Protein C when PT is normal. Reviewed by Huan Keita MD, PhD. Specimen Blood Performing Organization Address City/[facility] Ph one Number [facility] DEPARTMENT OF [address] [place] [address] PATHOLOGY AND [facility] MEDICINE [address] * Lupus anticoagulant panel (05/03/2019 8:30 AM CDT) [facility] Prothrombin 15.9 (H) 11.5 - 14.5 sec [facility] INR 1.3 [facility] Comment: [place] The International Normalized HOSPITAL Ratio (INR) is a therapeutic monitoring tool for patients who are stable on oral anticoagulant therapy. An INR of 2.0-3.0 is suggested for deep vein thrombosis/pulmonary embolism. PTT 34.0 23.0 - 36.0 sec [facility] Comment: [place] PTT therapeutic range for [facility] unfractionated heparin is 61.0-112.0 seconds which corresponds to Anti-Xa 0.3-0.7 U/ml. PTT lupus 36.1 27.0 - 38.0 sec [facility] anticoagulant Comment: [place] Lupus anticoagulant (LA) panel HOSPITAL consists of PT, PTT, PTT-LA, and DRVVT. If the PTT-LA is above the normal range, the hexagonal phospholipid will be performed. If the DRVVT is above the normal range, the DRVVC confirmatory test will be performed. A normal result for both the DRVVT and the PTT-LA means the patient is negative for lupus anticoagulant. The patient is considered positive for lupus anticoagulant if either the Ratio SCR/CONF or the hexagonal phospholipid is high (positive) on two occassions at least six weeks apart. Clinical confirmation is also required for diagnosis. DRVVT 45.4 29.0 - 46.0 sec [facility] Comment: [place] This test has been modified HOSPITAL from the manufacturers instructions. The performance characteristics were determined by [facility] in a manner consistent with CLIA requirements. This test has not been cleared or approved by the U.S. Food and Drug Administration. Specimen Blood Performing Organization Address City/State/[facility] Centercode Ph one Number [facility] DEPARTMENT OF [address] [place] [address] PATHOLOGY AND GENOMIC MEDICINE [address] * Cytomegalovirus Ab, IgG (05/03/2019 8:30 AM CDT) Cytomegalovirus Positive (A) Negative [facility] Ab, IgG Comment: [place] Positive; IgG antibody to CMV HOSPITAL detected which may indicate exposure to CMV infection. Specimen Serum Performing Organization Address [facility] Ph one Number [facility] DEPARTMENT OF [address] [place] [address] PATHOLOGY AND GENOMIC MEDICINE [address] * Fibrinogen (05/03/2019 8:30 AM CDT) Fibrinogen 627 (H) 200 - 450 mg/dL [facility] Specimen Blood Performing Organization Address City/[facility] Ph one Number [facility] DEPARTMENT OF [address] [place] [address] PATHOLOGY AND GENOMIC MEDICINE [address] * Antithrombin III level (05/03/2019 8:30 AM CDT) Antithrombin 81 80 - 130 % [facility] Specimen Blood Performing Organization Address [facility] one Number [facility] DEPARTMENT OF [address] [place] [address] PATHOLOGY AND GENOMIC MEDICINE [address] * Triglycerides (05/03/2019 8:30 AM CDT) Triglycerides 103 <150 mg/dL [facility] Specimen Plasma specimen Performing Organization Address [facility] one Number [facility] DEPARTMENT OF [address] [place] [address] PATHOLOGY AND [facility] MEDICINE [address] * Phosphorus level (05/03/2019 8:30 AM CDT) Phosphorus 4.6 (H) 2.4 - 4.5 mg/dL [facility] Specimen Plasma specimen Performing Organization Address [facility] Ph one Number [facility] DEPARTMENT OF [address] [place] [address] PATHOLOGY AND [facility] MEDICINE [address] * Parathyroid hormone (05/03/2019 8:30 AM CDT) PTH 507 (H) 15 - 65 pg/mL [facility] Specimen Blood Performing Organization Address City/[facility] Ph one Number [facility] DEPARTMENT OF [address] [place] [address] PATHOLOGY AND GENOMIC MEDICINE [address] * LDH (05/03/2019 8:30 AM CDT) LDH 235 (H) 87 - 225 U/L [facility] Specimen Plasma specimen Performing Organization Address City/[facility] Ph one Number [facility] DEPARTMENT OF [address] [place] [address] PATHOLOGY AND GENOMIC MEDICINE [address] * Glucose level (05/03/2019 8:30 AM CDT) Glucose 146 (H) 65 - 99 mg/dL [facility] Specimen Plasma specimen Performing Organization Address City/[facility] Ph one Number [facility] DEPARTMENT OF [address] [place] [address] PATHOLOGY AND GENOMIC MEDICINE [address] * Creatinine level (05/03/2019 8:30 AM CDT) Creatinine 4.40 (H) 0.70 - 1.20 mg/dL [facility] Specimen Plasma specimen Performing Organization Address City/[facility] Ph one Number [facility] DEPARTMENT OF [address] [place] [address] PATHOLOGY AND GENOMIC MEDICINE [address] * Cholesterol (05/03/2019 8:30 AM CDT) Cholesterol 86 <200 mg/dL [facility] Specimen Plasma specimen Performing Organization Address City/[facility] Ph one Number [facility] DEPARTMENT OF [address] [place] [address] PATHOLOGY AND GENOMIC MEDICINE [address] * Amylase level (05/03/2019 8:30 AM CDT) Amylase 46 28 - 100 U/L [facility] Specimen Plasma specimen Performing Organization Address City/[facility] Ph one Number [facility] DEPARTMENT OF [address] [place] [address] PATHOLOGY AND GENOMIC MEDICINE [address] * Urine culture (04/06/2019 8:57 AM INCISING MACHINE OPERATOR) Urine culture Mixed lenny- more than 3 [facility] isolate organisms isolated. [place] Consider resubmitting specimen HOSPITAL if clinically indicated. Comment: Specimen Information Specimen Source: Urine Specimen Site: Clean catch Specimen Urine Performing Organization Address [facility] one Number [facility] DEPARTMENT OF [address] [place] [address] PATHOLOGY AND GENOMIC MEDICINE [address] * Nicotine and cotinine, serum (04/06/2019 8:00 AM INCISING MACHINE OPERATOR) [facility] Nicotine <2.0 0.0 - 1.9 ng/mL [facility] Cotinine <2.0 0.0 - 1.9 ng/mL [facility] Comment: SYNAGOGUE This test was developed and HOSPITAL its performance characteristics determined by the Department of Pathology and Genomic Medicine, [facility]. Serum nicotine and metabolite cotinine are tested by HPLC tandem mass spectrometry. It has not been cleared or approved by FDA. The laboratory is regulated under CLIA as qualified to perform high-complexity testing. This test is used for clinical purposes. It should not be regarded as investigational or for research. Specimen Blood Performing Organization Address [facility] one Number [facility] DEPARTMENT OF [address] [place] [address] PATHOLOGY AND GENOMIC MEDICINE [address] * Urinalysis screen and microscopy, with reflex to culture (04/06/2019 8:00 AM INCISING MACHINE OPERATOR) Pathologist [facility] Specimen site Clean catch [facility] Color, UA Yellow [facility] Appearance, UA Cloudy [facility] Specific 1.013 1.001 - 1.035 [facility] gravity, [facility] pH, UA 6.0 5.0 - 8.5 [facility] Protein, UA 3+ (A) Negative [facility] Glucose, UA 1+ (A) Negative [facility] Ketones, UA Negative Negative [facility] Bilirubin, UA Negative Negative [facility] Blood, UA Large (A) Negative [facility] Nitrite, UA Negative Negative [facility] Urobilinogen, <2.0 <2.[address] [facility] Leukocyte Large (A) Negative [facility] esterase, [facility] WBC, UA >180 (H) 0 - 1 /HPF [facility] RBC, UA 70 (H) 0 - 5 /HPF [facility] Bacteria, UA Moderate (A) None seen [facility] WBC clumps, UA Moderate (A) [facility] Yeast, UA None seen [facility] Yeast with None seen [facility] pseudohyphae, [facility] Specimen Urine Performing Organization Address City/[facility] Ph one Number [facility] DEPARTMENT OF [address] [place] [address] PATHOLOGY AND GENOMIC MEDICINE [address] * Syphilis total antibody (04/06/2019 8:00 AM INCISING MACHINE OPERATOR) Syphilis total Reactive (A) Non-reactive [facility] antibody Comment: SYNAGOGUE Treponemal antibodies are HOSPITAL screened reactive. Non-treponemal antibody test, RPR will be followed. Specimen Blood Performing Organization Address City/[facility] one Number [facility] DEPARTMENT OF [address] [place] [address] PATHOLOGY AND GENOMIC MEDICINE [address] * HIV Ag/Ab combination (04/06/2019 8:00 AM INCISING MACHINE OPERATOR) HIV Ag/Ab Non-reactive Non-reactive [facility] Specimen Blood Performing Organization Address City/[facility] Ph one Number [facility] DEPARTMENT OF [address] [place] [address] PATHOLOGY AND GENOMIC MEDICINE [address] * IA-2 antibody (04/06/2019 8:00 AM INCISING MACHINE OPERATOR) IA-2 antibody see note [facility] Comment: Islet Antigen-2 (IA-2) Autoantibody, Serum [facility] test code [id number] IA-2, Autoantibody <5.4 U/mL (Ref Interval: 0.0-7.4) 999 INTERPRETIVE INFORMATION: Islet Antigen-2 (IA-2) Autoantibody, Serum A value greater than or equal to 7.5 Units/mL is considered positive for IA-2 autoantibodies. This assay is intended for the quantitative determination of autoantibodies to Islet Antigen-2 (IA-2) in human serum. Results should be interpreted within the context of clinical symptoms. Specimen Serum Performing Organization Address [facility] Ph one Number [facility] [address] [place] [address] [facility] [address] [place] [address] * Hepatitis B surface Ab, quantitative (04/06/2019 8:00 AM INCISING MACHINE OPERATOR) Pathologist [facility] Hepatitis B <3.10 IU/L [facility] surface Ab Comment: The anti-HBs is less than 10 IU/L and is therefore negative. There is no evidence of recovery from hepatitis B infection or evidence of antibody response to HBV vaccination. An anti-HBs result greater than or equal to 10 IU/L implies immunity. For post-vaccination antibody testing guidelines for the general public refer to MMWR February 14, 2005/Vol. 54(No. 16);-23, and for healthcare workers refer to MMWR February 11, 2013/Vol. 62(No. 10);-. Reference Interval: anti-HBs 9.99 IU/L or less ....... Negative 10.00 IU/L or greater .... Positive Results greater than 1,000.00 IU/L are reported as greater than 1,000.00 IU/L. This assay should not be used for blood donor screening, associated re-entry protocols, or for screening Human Cell, Tissues and Cellular and Tissue-Based Products (HCT/P). Performed by [facility], [address] [place] [id number] www.[email or web address], Trung Boyer MD, Lab. Director Specimen Serum Performing Organization Address [facility] Ph one Number [facility] [address] [place] [address] [facility] [address] [place] [address] * Hepatitis C antibody (04/06/2019 8:00 AM INCISING MACHINE OPERATOR) Pathologist [facility] Hepatitis C Ab Non-reactive Non-reactive [facility] Specimen Blood Performing Organization Address [facility] one Number [facility] DEPARTMENT OF [address] [place] [address] PATHOLOGY AND GENOMIC MEDICINE [address] * Hepatitis A antibody IgM (04/06/2019 8:00 AM INCISING MACHINE OPERATOR) Hepatitis A IgM Non-reactive Non-reactive [facility] Specimen Performing Organization Address City/[facility] Ph one Number [facility] DEPARTMENT OF [address] [place] [address] PATHOLOGY AND GENOMIC MEDICINE [address] * Hepatitis A antibody total (04/06/2019 8:00 AM INCISING MACHINE OPERATOR) Pathologist [facility] Hepatitis A Reactive (A) Non-reactive [facility] total Ab Comment: SYNAGOGUE Hepatitis A Total Antibody HOSPITAL reactive. Hepatitis A IgM antibody will be performed and reported separately when completed. Specimen Blood Performing Organization Address [facility] Ph one Number [facility] DEPARTMENT OF [address] [place] [address] PATHOLOGY AND GENOMIC MEDICINE [address] * Drug yuen 9, ser/lilian, scrn w/rflx to conf (04/06/2019 8:00 AM INCISING MACHINE OPERATOR) Pathologist [facility] Amphetamines, Negative Cutoff 30 ng/mL [facility] B s/p, screen Methamphetamine Negative Cutoff 30 ng/mL [facility] , s/p, screen Barbiturates, Negative Cutoff 75 ng/mL [facility] B s/p, screen Benzodiazepines Negative Cutoff 75 ng/mL [facility] , s/p, screen Cocaine, s/p, Negative Cutoff 30 ng/mL [facility] B screen Methadone, s/p, Negative Cutoff 40 ng/mL [facility] screen Opiates, s/p, Negative Cutoff 30 ng/mL [facility] B screen Oxycodone, s/p, Negative Cutoff 30 ng/mL [facility] screen Phencyclidine, Negative Cutoff 15 ng/mL [facility] B s/p, screen Cannabinoids, Negative Cutoff 30 ng/mL [facility] B s/p, screen Drug screen See Note [facility] comments, serum Comment: INTERPRETIVE INFORMATION: Drug Screen 9 Panel, Serum or Plasma - Immunoassay Screen with Reflex to Mass Spectrometry Confirmation/Quantitation 1. Methodology: Qualitative Immunoassay Screen 2. Drugs/Drug classes reported as "Positive" are automatically reflexed to mass spectrometry confirmation/quantitation testing. An immunoassay unconfirmed positive screen result may be useful for medical purposes but does not meet forensic standards. 3. The absence of expected drug(s) and/or drug metabolite(s) may indicate non-compliance, inappropriate timing of specimen collection relative to drug administration, poor drug absorption, or limitations of testing. The concentration at which the screening test can detect a drug or metabolite varies within a drug class. Specimens for which drugs or drug classes are detected by the screen are automatically reflexed to a second, more specific technology (mass spectrometry). The concentration value must be greater than or equal to the cutoff to be reported as positive. Interpretive questions should be directed to the laboratory. 4. For medical purposes only; not valid for forensic use. Test developed and characteristics determined by [facility]. See Compliance Statement B: [facility]/ Performed by [facility], [address] [place] [address] [email or web address], Trung Boyer MD, Lab. Director Specimen Serum Performing Organization Address [facility] one [facility] [facility] [address] [place] [address] * Glutamic acid decarboxylase Ab (04/06/2019 8:00 AM INCISING MACHINE OPERATOR) Pathologist [facility] Glutamic acid <5.0 0.0 - 5.0 IU/mL [facility] B decarb Ab Comment: INTERPRETIVE INFORMATION: Glutamic Acid Decarboxylase Antibody A value greater than 5.0 IU/mL is considered positive for Glutamic Acid Decarboxylase Antibody (HERMELINDA Ab). This assay is intended for the semi-quantitative determination of the HERMELINDA Ab in human serum. Results should be interpreted within the context of clinical symptoms. Performed by [facility], [address] [place], [place] [id number] www.[facility], Trung Boyer MD, Lab. Director Specimen Serum Performing Organization Address [facility] one [facility] [place] [facility] [address] [place] [address] * Hepatitis B core antibody total (04/06/2019 8:00 AM INCISING MACHINE OPERATOR) Pathologist [facility] Hepatitis B Non-reactive Non-reactive [facility] core total Ab [facility] Specimen Blood Performing Organization Address City/[facility] Ph one Number [facility] DEPARTMENT OF [address] [place] [address] PATHOLOGY AND [facility] MEDICINE [address] * Treponema pallidum Ab (04/06/2019 8:00 AM INCISING MACHINE OPERATOR) Pathologist [facility] Syphilis Non-reactiveComment: Non-reactive [facility] treponemal Ab Treponemal antibody is not [place] confirmed. HOSPITAL Specimen Performing Organization Address City/[facility] one Number [facility] DEPARTMENT OF [address] [place] [address] PATHOLOGY AND [facility] MEDICINE [address] * ABO and Rh (04/06/2019 8:00 AM INCISING MACHINE OPERATOR) Pathologist [facility] ABO grouping O [facility] Rh type POS [facility] Specimen Blood Performing Organization Address [facility] Ph one Number [facility] DEPARTMENT OF [address] [place] [address] PATHOLOGY AND [facility] MEDICINE [address] * C-peptide (04/06/2019 8:00 AM INCISING MACHINE OPERATOR) [facility] C-peptide 2.2 1.1 - 4.4 ng/mL [facility] Specimen Plasma specimen Performing Organization Address City/[facility] one Number [facility] DEPARTMENT OF [address] [place] [address] PATHOLOGY AND [facility] MEDICINE [address] * Islet cell Ab, IgG (04/06/2019 8:00 AM INCISING MACHINE OPERATOR) Pathologist [facility] Islet cell Ab <1:4 <1:4 [facility] Comment: INTERPRETIVE INFORMATION: Islet Cell Ab, IgG Islet cell antibodies (ICAs) are associated with type 1 diabetes (TID), an autoimmune endocrine disorder. ICAs may be present years before the onset of clinical symptoms. To calculate Juvenile Diabetes Foundation (JDF) units: multiply the titer x 5 (1:8 8 x 5 = 40 JDF Units). Test developed and characteristics determined by [facility]. See Compliance Statement A: [employer]CS Performed by [facility], [address] [place] [id number] www.[facility], Trung Boyer MD, Lab. Director Specimen Serum Performing Organization Address [facility] Ph one Number [facility] [address] [place] [address] [facility] [address] [place] [address] * RPR (04/06/2019 8:00 AM INCISING MACHINE OPERATOR) Pathologist [facility] RPR Non-reactive Non-reactive [facility] Comment: SYNAGOGUE Results suggest no serological HOSPITAL evidence of active syphilis infection. Possible syphilis (early or latent) or previously treated syphilis cannot be ruled out. Confirmatory treponemal test, TP-PA will be performed. Specimen Performing Organization Address [facility] Ph one Number [facility] DEPARTMENT OF [address] [place] [address] PATHOLOGY AND [facility] MEDICINE [address] * Hepatitis B surface antigen (04/06/2019 8:00 AM INCISING MACHINE OPERATOR) [facility] Hepatitis B Non-reactive Non-reactive [facility] surface Ag [facility] Specimen Blood Performing Organization Address [facility] Ph one Number [facility] DEPARTMENT OF [address] [place] [address] PATHOLOGY AND [facility] MEDICINE [address] * Partial thromboplastin time, activated (04/06/2019 8:00 AM INCISING MACHINE OPERATOR) [facility] PTT 39.8 (H) 23.0 - 36.0 sec [facility] Comment: SYNAGOGUE PTT therapeutic range for HOSPITAL unfractionated heparin is 61.0-112.0 seconds which corresponds to Anti-Xa 0.3-0.7 U/ml. Specimen Blood Performing Organization Address [facility] Ph one Number [facility] DEPARTMENT OF [address] [place] [address] PATHOLOGY AND [facility] MEDICINE [address] * Prothrombin time with INR (04/06/2019 8:00 AM INCISING MACHINE OPERATOR) [facility] Prothrombin 17.0 (H) 11.5 - 14.5 sec [facility] INR 1.4 [facility] Comment: SYNAGOGUE The International Normalized HOSPITAL Ratio (INR) is a therapeutic monitoring tool for patients who are stable on oral anticoagulant therapy. An INR of 2.0-3.0 is suggested for deep vein thrombosis/pulmonary embolism. Specimen Blood Performing Organization Address City/[facility] Ph one Number [facility] DEPARTMENT OF [address] [place] [address] PATHOLOGY AND GENOMIC MEDICINE [id number] [place] [address] * CBC with platelet and differential (04/06/2019 8:00 AM INCISING MACHINE OPERATOR) WBC 5.48 4.50 - 11.00 k/uL [facility] RBC 2.97 (L) 4.40 - 6.00 m/uL [facility] HGB 8.0 (L) 14.0 - 18.0 g/dL [facility] HCT 25.4 (L) 41.0 - 51.0 % [facility] MCV 85.5 82.0 - 100.0 fL [facility] MCH 26.9 (L) 27.0 - 34.0 pg [facility] MCHC 31.5 31.0 - 37.0 g/dL [facility] RDW - SD 43.8 37.0 - 55.0 fL [facility] MPV 8.8 8.8 - 13.2 fL [facility] Platelet count 163 150 - 400 k/uL [facility] Nucleated RBC 0.00 /100 WBC [facility] Neutrophils 67.2 39.0 - 69.0 % [facility] Lymphocytes 21.2 (L) 25.0 - 45.0 % [facility] Monocytes 6.0 0.0 - 10.0 % [facility] Eosinophils 4.6 0.0 - 5.0 % [facility] Basophils 0.5 0.0 - 1.0 % [facility] Immature 0.5Comment: "Immature 0.0 - 1.0 % [facility] granulocytes granulocytes" (promyelocytes, METHOD IST myelocytes, metamyelocytes) HOSPITAL Specimen Blood Performing Organization Address City/[facility] Ph one Number [facility] DEPARTMENT OF [address] [place] [address] PATHOLOGY AND GENOMIC MEDICINE [id number] [place] [address] * Hemoglobin A1c (04/06/2019 8:00 AM INCISING MACHINE OPERATOR) Hemoglobin A1C 5.7 (H) 4.0 - 5.6 % [facility] Comment: SYNAGOGUE HbA1c cutoffs for diagnosing HOSPITAL diabetes: 4.0% - 5.6% = normal 5.7% - 6.4% = increased risk for diabetes (prediabetes)9 >=6.5% = diabetes9 Goals for glycemic control (ADA 2016) < 7.0% Target for non adults with diabetes. More or less stringent targets may be appropriate for individual patients. <7.5% Target for Children and adolescents with type 1 diabetes. Specimen Blood Performing Organization Address City/State/Zipcode Ph one Number [facility] DEPARTMENT OF [address] [place] [address] PATHOLOGY AND GENOMIC MEDICINE [facility] [address] * Comprehensive metabolic panel (04/06/2019 8:00 AM INCISING MACHINE OPERATOR) Sodium 140 135 - 148 mEq/L [facility] Potassium 5.3 (H) 3.5 - 5.0 mEq/L [facility] Chloride 113 (H) 98 - 112 mEq/L [facility] CO2 15 (L) 24 - 31 mEq/L [facility] Anion gap 12@ANIO 7 - 15 mEq/L [facility] BUN 63 (H) 6 - 20 mg/dL [facility] Creatinine 4.42 (H) 0.70 - 1.20 mg/dL [facility] Glucose 119 (H) 65 - 99 mg/dL [facility] Calcium 6.6 (L) 8.3 - 10.2 mg/dL [facility] Protein 9.2 (H) 6.3 - 8.3 g/dL [facility] Comment: SYNAGOGUE Bofnczr1066.6-7.0 g/dL [facility] 1 tvyl3730.4-7.6 g/dL 7 months-4szod444.1-7.3 g/dL 1-2 qerhm927.6-7.5 g/dL >3 gidxm849.0-8.0 g/dL 18-8045026.3-8.3 g/dL Albumin 2.6 (L) 3.5 - 5.0 g/dL [facility] A/G ratio 0.4 (L) 0.7 - 3.8 [facility] Alkaline 184 (H) 40 - 129 U/L [facility] phosphatase [facility] AST 18 10 - 50 U/L [facility] ALT 8 5 - 50 U/L [facility] Total bilirubin <0.2 0.0 - 1.2 mg/dL [facility] Specimen Plasma specimen Performing Organization Address City/State/Zipcode Ph one Number [facility] DEPARTMENT OF [address] [place] [address] PATHOLOGY AND GENOMIC MEDICINE [facility] [address] [place] [id number] HOSPITAL after 2018 Insurance Type Payer Benefit Subscriber ID Effective Phone Address Plan / Dates Group PPO BCBS BCBS OUT xxxxxxxxxxxxxxx 2018-P OF STATE resent Advance Directives For more information, please contact: [phone] 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
--- OUTSIDE RECORDS SUMMARY | 2019-08-04 20:01 | XMS REPORT | Continuity of Care Document ---
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 2. No evidence of labral or cartilaginou s pathology. 07/23/2017 [facility] Inj Arthrogram Shoulder Unilat DX EXAM: [...] the right shoulder for MR arthrogram. 07/23/2017 [facility] Consultation Notes No Data Provided for This Section Discharge Summaries No Data Provided for This Section History and Physicals No Data Provided for This Section Vital Signs Vital Sign Value Date Comments Source BMI Calculated 22.31 12/01/2017 [facility] Weight 64.602 12/01/2017 [facility] Height 170.18 cm 12/01/2017 [facility] Systolic (mm Hg) 108 12/01/2017 [facility] Diastolic (mm Hg) 76 12/01/2017 [facility] Heart Rate 64 12/01/2017 [facility] Encounters Location Location Details Encounter Type Encounter Number Reason For Visit Attending Provider ADM Date DC Date Status Source [facility] Outpatient [id number] Kenzie Mancilla 06/02/2017 06/02/2017 [facility] Outpatient Imaging [facility] Outpt Diag Services [id number] 01 Joaquín Ha 07/23/2017 07/24/2017 [facility]NA Neurology [facility] Phone Message [id number] 11/30/2017 12/02[place]2017 [facility] [id number] [facility] 12[facility]01/2017 [facility]NA Neurology [facility] Outpatient [id number] [facility] 12/01/2017 12/02/[place] [facility] [place] Procedure Code Date Perfomer Comments Source Hernia repair<sup>1</sup> [id number] 1981 & 198 9 [facility] [place]AS[place] [id number] [facility] Provision of collar<sup>2</sup> [id number] collar bon e fracture [facility] Assessment and Plan No Data Provided for This Section Plan of Care No Data Provided for This Section Social History Social History Date Source Social History TypeResponse Substance Abuse Use: None. Recreational Drug Route: Oral. Employment/School Status: Employed. Alcohol Current, Type Beer. Frequency: 3-5 times per week. Smoking Status Never smoker; Exposure to Tobacco Smoke None; Cigarette Smoking Last 365 Days No; Reg Smoking Cessation Counseling Yes entered on: 12/01/17 12/01/2017 [facility] No data available for this section 07/24/2017 [facility] No data available for this section 06/02/2017 [facility] Family History No Data Provided for This Section Advance Directives No Data Provided for This Section Functional Status No Data Provided for This Section
--- OUTSIDE RECORDS SUMMARY | 2019-08-04 20:04 | XMS REPORT | Continuity of Care Document ---
Author Author [facility] t Organization [facility] Address [address] [place] [address] Phone Unavailable Care Team Providers Care Cleat Layer Name Role Phone MD ABHIJIT YODER MD PCP Hola Pressley MD Attphys YANETH WEAVER Attphys Unavailable Ty FOSS, Bisi Attphys Unavailable Reg LERNER, M Melani Attphys Unavailable ABHIJIT YODER Attphys Unavailable Alexandre MARSH Attphys Unavailable Lorie Driver Attphys Unavailable Gaurav Vila Attphys Unavailable HAMPEL, TONY Attphys Unavailable DELLA NG M.D. Attphys Unavailable ROSEY, P LUZ MARINA Attphys Unavailable MARK, S AMBICA Attphys Unavailable MANEEVESE, V YOJANA Attphys Unavailable Gen Cook Attphys Enedelia Ha Attphys Allison Ng Attphys Yayo HILLS Attphys Unavailable ABHIJIT YODER Admphys Unavailable HAMPEL, TONY Admphys Unavailable Payers Payer Name Policy Type Policy Number Effective Date Expiration Date S dylan BCBSBCBS OUT OF [id number] xxxxxxxxxxxxxxx 2018 00:00:00 [facility] Ppo NA 2018 00:00:00 [facility] [employer] Ppo [id number] [facility] Problems Condition Name Condition Details Condition Category Status Onset Date Resolution Date Last Treatment Date Treating Clinician Comments Source 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 2019-08-01 00:00:00 Alejandro Arias Pre-transplant evaluation for kidney and pancreas yoder splant Pre-transplant evaluation for kidney and pancreas transplant Disease Active 2019-04-06 00:00:00 Alejandro salazar Diabetes mellitus type 1 Diabetes mellitus type 1 Disease Acti ve 2019-02-21 00:00:00 Alejandro salazar M75.41 - IMPINGEMENT 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 Active 06/17/2017 [facility] Diagnosis Active 2017-06-17 00:01:00 2017-08-13 12:21:00 [facility] Yogesh 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 Active 2017-04-16 00:00:00 Allison Arias Infection of right knee Infection of right knee Disease Active 2016-03-27 00:00:00 Alejandro salazar Acute renal failure Acute renal failure Problem Active 2015-08-09 00:00 :00 [facility] Dehydration Dehydration Problem Active 2015-08-09 00:00:00 [facility] Diarrhea Diarrhea Problem Active 2015-08-09 00:00:00 [facility] GI bleed GI bleed Problem Active 2015-08-09 00:00:00 [facility] Hyperglycemia Hyperglycemia Problem Active 2015-08-09 00:00:00 [facility] Sepsis Sepsis Problem Active 2015-04-15 00:00:00 [facility] Renal insufficiency Renal insufficiency Problem Active 2015-04-15 00:00 :00 [facility] Bacteremia Bacteremia Problem Active 2015-03-30 00:00:00 [facility] Prostatitis Prostatitis Problem Active 2015-03-30 00:00:00 [facility] Urinary tract infection UTI (urinary tract infection) Problem Active 2015-03-30 00:00:00 [facility] Pyelonephritis Pyelonephritis Problem Active 2015-02-10 00:00:00 [facility] History of left foot drop History of left foot drop Problem Active [facility] Arthralgia of right ankle Arthralgia of right ankle Problem Active [facility] Equinus contracture of right ankle Equinus contracture of right ankle Problem Active [facility] Fracture of right tibial plateau, closed , with routine healing, subsequent encounter Fracture of right tibial plateau, closed , with routine healing, subsequent encounter Problem Active [facility] Acute renal insufficiency Acute renal insufficiency Problem Active [facility] Bladder wall thickening Bladder wall thickening Problem Active [facility] Fever Fever Problem Active [facility] Hydroureteronephrosis Hydroureteronephrosis Problem Active [facility] Hypomagnesemia Hypomagnesemia Problem Active [facility] Indwelling catheter present on admission Indwelling ca theter present on admission Problem Active [facility] Obstructive uropathy Obstructive uropathy Problem Active [facility] Displacement of ureteral stent Ureteral stent displacement Problem Activ e [facility] Vomiting Vomiting Problem Active [facility] Abdominal pain Abdominal pain Problem Active [facility] Constipation Constipation Problem Active [facility] Edema of extremities Edema extremities Problem Active [facility] Allergies, Adverse Reactions, Alerts Allergy Name Allergy Type Status Severity Reaction(s) Onset Date Inacti ve Date Treating Clinician Comments Source Iodinated Contrast Media Allergy to substance Active 11-05-10 00:00:00 [facility] Dye Propensity to adverse reactions to drug Active 2016-03-17 00:00:00 CT contrast. IV dye. Excessive sneezing. Alejandro Arias CT CONTRAST DA Active MO 2015-10-12 00:00:00 [facility] PO CONTRAST Allergy to substance Active Mild 2007-07-06 00:00:00 [facility] No Known Medication Allergies No Known Medication Allergies Active [facility] Family History Family Member Diagnosis Comments Start Date Stop Date Source Maternal grandmother Hypertension Timi ojeda [employer] Maternal grandmother Kidney disease Alejandro Arias Natural mother Diabetes [facility] Social History Social Habit Start Date Stop Date Quantity Comments Source Sex Assigned At [facility] [employer] Exposure to SARS-CoV-2 (event) Not sure Alejandro Arias Alcohol intake 2019-08-01 00:00:00 2019-08-01 00:00:00 Current non-drinker of alcohol (finding) Alejandro Arias Social History 2017-06-02 18:15:00 2017-06-02 18:15:00 [facility] Smoking Status Start Date Stop Date Source Never smoker Alejandro Simpson t Medications Ordered Medication Name Filled Medication Name Start Date Stop Da te Current Medication? Ordering Clinician Indication Dosage Frequency Signature (SIG) Comments Components Source isoniazid (NYDRAZID) 300 MG tablet 2019-08-01 00:00:00 2019-10-18 23:59:00 Yes 900mg Q7D Take 3 tablets (900 mg to pat) by mouth once a week for 12 doses. Alejandro Arias rifapentine 150 mg tablet 2019-08-01 00:00:00 2019-10-18 23:59:0 0 Yes 6{tbl} Q7D Take 6 tablets by mouth once a week for 12 doses. Alejandro Arias insulin ASPART (NovoLOG) 100 unit/mL injection 2019-04-06 10:16: 42 Yes 5U Q.[id number] Inject 5 Units under the ski n 3 (three) times a day before meals. Alejandro Arias calcium carbonate (TUMS) 200 mg calcium (500 mg) chewable ta blet 2019-02-21 15:10:36 Yes 1{tbl} Q.[id number] 3D Chew 1 tablet 3 (three) times daily after meals. Alejandro Arias cholecalciferol, vitamin D3, (VITAMIN D3) 2,000 unit capsule capsule 2019-02-21 15:10:36 Yes 2000U QD Take 2,000 Units b y mouth daily. Alejandro Arias ergocalciferol (VITAMIN D2) 50,000 unit capsule 2019-02-21 15:10 :36 Yes [id number] Q7D Take 50,000 Units by mouth once a week. Alejandro Arias gabapentin (NEURONTIN) 300 mg capsule 2019-02-21 15:10:36 Yes 300mg Q.5D Take 300 mg by mouth 2 (two) times a day. Alejandro Arias SODIUM BICARBONATE ORAL 2019-02-21 15:10:36 Yes 1300mg Q.5D Take 1,300 mg by mouth 2 (two) times a day. Alejandro Arias NIFEdipine XL (PROCARDIA XL) 30 MG 24 hr tablet 2019-02-21 15:10 :36 Yes 30mg Q.5D Take 30 mg by mouth 2 (two) times a day. Alejandro Arias magnesium oxide (MAG-OX) 400 mg (241.3 mg magnesium) tablet 2019-02-21 15:10:36 Yes 800mg Q.5D Take 800 mg by mouth 2 (two) times a day. Alejandro Arias ciprofloxacin (CIPRO) 500 MG tablet 2019-02-21 15:10:3 6 2019-02-21 00:00:00 No 500mg QD Take 500 mg by mouth nightly. Alejandro Arias metoprolol tartrate (LOPRESSOR) 25 mg tablet 201 11-04-29 15:10:36 2019-02-21 00:00:00 No 25mg Q.5D Take 25 mg by mouth 2 (two) cm es a day. Alejandro Arias AMLODIPINE BESYLATE (AMLODIPINE ORAL) 2019-02-21 15:10 :36 2019-02-21 00:00:00 No 10mg QD Take 10 mg by mouth every morning. Alejandro Arias DOXYCYCLINE HYCLATE ORAL 2019-02-21 15:10:36 2019-02-21 00:00:00 No 100mg Q.5D Take 100 mg by mouth 2 (two) times a day. Alejandro Arias LACTOBACILLUS ACIDOPHILUS (PROBIOTIC ORAL) 02-21 15:10:36 2019-02-21 00:00:00 No 1{tbl} QD Take 1 tablet by mouth daily. Alejandro Arias insulin DETEMIR (LEVEMIR) 100 unit/mL (3 mL) insulin pen 2019-02-21 15:10:36 2019-02-21 00:00:00 No 30U QD Inject 30 Units unde r the skin nightly. Alejandro Arias Gabapentin 300 MG Oral Capsule Gabapentin 300 MG Oral Capsul e 2018-12-10 00:00:00 Yes DELLA NG M.D. Q0.3333D TAKE 1 CA PSULE 3 TIMES DAILY. [facility] Furosemide Furosemide 2018-06-27 13:06:2018-10-17 00:00:00 No 40 Daily [facility] Nifedipine (Nifedipine Er) 30 Mg TAB.ER.24 Nifedipine (Nifedipine Er) 30 Mg TAB.ER.24 2018-06-27 13:06:00 2018-10-17 00:00:00 No 60 Daily [facility] Fluconazole (Diflucan) 100 Mg TABLET Fluconazole (Diflucan) 100 Mg TABLET 2019-06-22 00:00:00 No 100 Daily [facility] Furosemide (Lasix) 40 Mg TABLET Furosemide (Lasix) 40 Mg TABLET 2019-06-22 00:00:00 No 40 Daily as needed for Edema To Lo wer Extremities [facility] Gabapentin Gabapentin 2019-06-22 00:00:00 No 300 Thr ee Times A Day [facility] Insulin Aspart (Novolog) 100 Unit/1 Ml CARTRIDGE Insul in Aspart (Novolog) 100 Unit/1 Ml CARTRIDGE 2019-06-22 00:00:00 No 5 Befo re Meals [facility] Magnesium Oxide (Magox 400) 400 Mg TABLET Magnesium Ox jaziel (Magox 400) 400 Mg TABLET 2019-06-22 00:00:00 No 2 Three Times A Day [facility] Nifedipine (Nifedipine Er) 60 Mg TAB.ER.24 Nifedipine (Nifedipine Er) 60 Mg TAB.ER.24 2019-06-22 00:00:00 No 30 Twice A Day [facility] Sodium Bicarbonate Sodium Bicarbonate 2019-06-22 00:00:00 No 2 Three Times A Day [facility] Ergocalciferol (Vitamin D2) (Vitamin D2) 2,000 Unit TA BLET Ergocalciferol (Vitamin D2) (Vitamin D2) 2,000 Unit TABLET 2019-05-30 00:00:00 No 19897 Q Week [facility] Lactulose Lactulose 2019-02-11 00:00:00 No 30 Every 6 Hours as needed for Constipation [facility] Metoclopramide Hcl (Reglan) 10 Mg TABLET Metoclopramid e Hcl (Reglan) 10 Mg TABLET 2019-02-11 00:00:00 No 10 Before Meals And At Bedtime [facility] Carlene Concepcion 2019-02-11 00:00:00 No 1 Daily [facility] Sennosides/Docusate Sodium (Senokot-S Tablet) 1 Each T ABLET Sennosides/Docusate Sodium (Senokot-S Tablet) 1 Each TABLET 2018-10-31 00:00:00 No [facility] Nifedipine (Nifedipine Er) 30 Mg TAB.ER.24 Nifedipine (Nifedipine Er) 30 Mg TAB.ER.24 2018-06-27 00:00:00 No Daily [facility] Vyzulta Vyzulta 2018-06-21 00:00:00 No .024 Daily [facility] Amlodipine Besylate Amlodipine Besylate 2018-05-05 00:00:00 No 10 Daily [facility] Metoprolol Tartrate Metoprolol Tartrate 2018-05-05 00:00:00 No 25 Twice A Day [facility] Ciprofloxacin Hcl (Cipro) 500 Mg TABLET Ciprofloxacin Hcl (C ipro) 500 Mg TABLET 2017-08-29 00:00:00 No 500 Daily [facility] Doxycycline Hyclate Doxycycline Hyclate 2017-08-29 00:00:00 No 100 Twice A Day [facility] Fluconazole Fluconazole 2017-08-29 00:00:00 No 200 D aily [facility] Insulin Detemir (Levemir) 100 Unit/1 Ml VIAL Insulin D etemir (Levemir) 100 Unit/1 Ml VIAL 2017-08-29 00:00:00 No 20 Bedtime [facility] Oxybutynin Chloride (Oxybutynin Chloride Er) 5 Mg TAB. ER.24 Oxybutynin Chloride (Oxybutynin Chloride Er) 5 Mg TAB.ER.24 2017-08-29 00:00:00 No 15 Daily [facility] Cephalexin Cephalexin 2016-06-04 00:00:00 No 500 Fou r Times Daily [facility] Hydrocodone Bit/Acetaminophen ([place] 5-325 Tablet) 1 E ach TABLET Hydrocodone Bit/Acetaminophen ([place] 5-325 Tablet) 1 Each TABLET 2016-06-04 00: 00:00 No 1 Every 6 Hours as needed for Pain [facility] Promethazine Hcl Promethazine Hcl 2016-06-04 00:00:00 No 25 Every 4 Hours [facility] Tramadol Hcl (Ultram) 50 Mg TABLET Tramadol Hcl (Ultram) 50 Mg T ABLET 2016-06-04 00:00:00 No Every 6 Hours as nee ded for Pain [facility] Fluticasone Propionate Fluticasone Propionate 2015-08-08 00:00:00 No 1 Twice A Day [facility] Meropenem (Merrem) 500 Mg INJ Meropenem (Merrem) 500 Mg INJ 2015-08-08 00:00:00 No 500 Every 8 Hours [facility] Metoclopramide Hcl (Reglan) 10 Mg TABLET Metoclopramid e Hcl (Reglan) 10 Mg TABLET 2015-08-08 00:00:00 No 10 Before Meals And At Bedtime [facility] Pantoprazole Sodium (Protonix) 40 Mg TABLET. Pantopr azole Sodium (Protonix) 40 Mg TABLET. 2015-08-08 00:00:00 No 40 Every Morni ng [facility] Amoxicillin/Potassium Clav (Augmentin 500-125 Tablet) 1 Each TABLET Amoxicillin/Potassium Clav (Augmentin 500-125 Tablet) 1 Each TABLET 2015-04-11 00:00:00 No 500 Twice A Day [facility] Fluconazole (Diflucan) 100 Mg TABLET Fluconazole (Diflucan) 100 Mg TABLET 2015-04-11 00:00:00 No Daily [facility] Tamsulosin Hcl (Flomax*) 0.4 Mg CAP Tamsulosin Hcl (Flomax*) 0.4 Mg CAP 2015-03-30 00:00:00 No .4 Bedtime [facility] Acetaminophen With Codeine (Tylenol With Codeine #3 Ta blet) 1 Each TABLET Acetaminophen With Codeine (Tylenol With Codeine #3 Tablet) 1 Each TABLET 2015-03-08 00:00:00 No 300 Every 6 Hours as nee ded for Pain [facility] Senna Fruit/Conc/Doc Sod/Bisa (Senna-S Tablet) 1 Ea TA B Senna Fruit/Conc/Doc Sod/Bisa (Senna-S Tablet) 1 Ea TAB 2015-03-08 00:00:00 No 1 Bedtime [facility] Hydrocodone Bit/Acetaminophen ([place] 5-325 Tablet) 1 E ach TABLET Hydrocodone Bit/Acetaminophen ([place] 5-325 Tablet) 1 Each TABLET 2015-02-22 00: 00:00 No Daily [facility] Insulin Npl/Insulin Lispro (Humalog Mix 50-50 Kwikpen) 100 Unit/1 Ml INSULN.PEN Insulin Npl/Insulin Lispro (Humalog Mix 50-50 Kwikpen) 100 Unit/1 Ml INSULN.PEN 2015-02-22 00:00:00 No 15 Units Every A.m . [facility] Lisinopril Lisinopril 2015-02-22 00:00:00 No Ketty ly [facility] Amoxicillin/Potassium Clav (Augmentin 875-125 Tablet) 1 Each TABLET Amoxicillin/Potassium Clav (Augmentin 875-125 Tablet) 1 Each TABLET 2015-02-11 00:00:00 No Twice A Day [facility] Cephalexin Monohydrate (Keflex) 500 Mg CAPSULE Cephale leonela Monohydrate (Keflex) 500 Mg CAPSULE 2015-02-11 00:00:00 No 500 Three Cm es A Day [facility] Docusate Sodium (Colace) 100 Mg CAP Docusate Sodium (Colace) 100 Mg CAP 2015-02-11 00:00:00 No Daily [facility] Insulin Glargine,Hum.rec.anlog (Lantus) 100 Unit/1 Ml CARTRIDGE Insulin Glargine,Hum.rec.anlog (Lantus) 100 Unit/1 Ml CARTRIDGE 2014 00:00:00 No 45 Units At Bedtime [facility] Metformin Hcl Metformin Hcl 2015-02-11 00:00:00 No 500 Twice Daily [facility] Vital Signs Vital Name Observation Time Observation Value Comments Source Body Temperature 2019-06-22 20:30:00 97.4 [degF] [facility] BMI (Body Mass Index) 2019-06-12 17:12:00 29.3 kg/m2 [facility] Weight 2019-06-12 11:09:00 210 [lb_av] [facility] Body height 2019-05-03 07:20:00 180.3 cm Alejandro Arias Body weight 2019-05-03 07:20:00 103.42 kg Alejandro Arias BMI 2019-05-03 07:20:00 31.80 kg/m2 Alejandro Arias Systolic blood pressure 2019-04-06 07:50:00 182 mm[Hg] pt s tates he hasnt taken his meds today. [facility] Diastolic blood pressure 2019-04-06 07:50:00 98 mm[Hg] pt states he hasnt taken his meds today. Alejandro Arias Heart rate 2019-04-06 07:50:00 90 /min Alejandro Arias Body temperature 2019-04-06 07:50:00 35.78 Ashley Catrina Arias Respiratory rate 2019-04-06 07:50:00 20 /min Catrina contreras [employer] Oxygen saturation in Arterial blood by Pulse oximetry 04-06 07:50:00 99 /min Alejandro Arias BMI Calculated 2017-12-01 14:24:00 Meet al Yogesh Weight 2017-12-01 14:24:00 [facility] Height 2017-12-01 14:24:00 170.18 cm [facility] Systolic (mm Hg) 2017-12-01 14:24:00 Flo rial Yogesh Diastolic (mm Hg) 2017-12-01 14:24:00 Mem orial Yogesh Heart Rate 2017-12-01 14:24:00 [facility] Procedures Procedure Date / Time Performed Performing Clinician Sourc e CARDIOLIPIN ANTIBODIES 2019-08-01 12:17:00 Yaneth Weaver X-ray of chest, two views 2019-06-16 00:00:00 [facility] Ultrasound guidance for vascular access 2019-06-02 00:00:00 FAIZA ENGEL [facility] INSERT OF TUNNEL VAD INTO CHEST SUBCU/FASCIA, OPEN APPROACH 2019-06-02 00:00:00 [facility] REMOVAL OF TUNNEL VAD FROM TRUNK SUBCU/FASCIA, OPEN AP PROACH 2019-06-02 00:00:00 [facility] INSERTION OF INFUSION DEV INTO SUP VENA CAVA, PERC APPROACH 2019-06-02 00:00:00 [facility] ULTRASONOGRAPHY OF SUPERIOR VENA CAVA, GUIDANCE 2019-06-02 00:00 :[address] [facility] [address] of abdomen and pelvis without contrast 2019-05-30 00:00:00 [facility] Ultrasound guidance for vascular access 2019-05-16 00:00:00 ABBIE [facility] INSERT OF TUNNEL VAD INTO CHEST SUBCU/FASCIA, PERC APPROACH 2019-05-16 00:00:00 [facility] INSERTION OF INFUSION DEVICE INTO R ATRIUM, PERC APPROACH 05-15 00:00:00 [facility] ULTRASONOGRAPHY OF SUPERIOR VENA CAVA, GUIDANCE 2019-05-16 00:00 :00 [facility] INSERT OF INFUSION DEV INTO PERITON CAV, PERC ENDO APPROACH 2019-05-12 00:00:00 [facility] IRRIGATION OF PERITON CAV USING DIALYSATE, PERC APPROACH 2019-04 00:00:00 [facility] REMOVAL OF INTRALUMINAL DEVICE FROM URETER, ENDO 2019-05-10 00:0 0:00 [facility] DILATION OF RIGHT URETER WITH INTRALUMINAL DEVICE, ENDO 00:00:00 [facility] CHANGE DRAINAGE DEVICE IN BLADDER, EXTERNAL APPROACH 2019-05-10 00:00:00 [facility] X-ray of chest, two views 2019-05-06 00:00:00 JC CATES [facility] XR CHEST 2 VW 2019-05-03 09:35:[address] ABDOMEN PELVIS WO CONTRAST 2019-05-03 09:28:50 Weaver, Claudio Allen [employer] CHOLESTEROL 2019-05-03 08:30:00 Weaver, Yaneth mendez [employer] TRIGLYCERIDES 2019-05-03 08:30:00 Weaver, Yaneth mendez [employer] GLUCOSE LEVEL 2019-05-03 08:30:00 Weaver, Yaneth mendez [employer] CREATININE LEVEL 2019-05-03 08:30:00 Weaver, Yaneth Mistry on [employer] PHOSPHORUS LEVEL 2019-05-03 08:30:00 Weaver, Yaneth Mistry on [employer] LDH 2019-05-03 08:30:00 Weaver, Yaneth Cunninghamist CYTOMEGALOVIRUS AB, IGG 2019-05-03 08:30:00 Weaver, Yaneth Arias CYTOMEGALOVIRUS AB, IGM 2019-05-03 08:30:00 Weaver, Yaneth Cunninghamist HELDER-VEE VIRUS ANTIBODY TEST 2019-05-03 08:30:00 Weaver, Kermit Arias HSV TYPE 1/2 COMBINED AB, IGM 2019-05-03 08:30:00 Weaver, Claudio Arias HSV 1 & 2 GLYCOPROTEIN G AB, IGG 2019-05-03 08:30:00 Weaver, Kermit Arias PARATHYROID HORMONE 2019-05-03 08:30:00 Weaver, Yaneth Arias ABORH - TRANSPLANT 2019-05-03 08:30:00 Weaver, Yaneth Cunninghamist TB T-SPOT 2019-05-03 08:30:00 Weaver, Yaneth Cunninghamist HOMOCYSTINE, PLASMA 2019-05-03 08:30:00 Weaver, Yaneth Cunninghamist ANTITHROMBIN III LEVEL 2019-05-03 08:30:00 Weaver, Yaneth Arias FUNCTIONAL PROTEIN C 2019-05-03 08:30:00 Weaver, Yaneth Arias FUNCTIONAL PROTEIN S 2019-05-03 08:30:00 Weaver, Yaneth Cunninghamist CARDIOLIPIN ANTIBODIES 2019-05-03 08:30:00 Weaver, Yaneth Cunninghamist MTHFR MUTATION 2019-05-03 08:30:00 Weaver, Yaneth Cunninghamist FIBRINOGEN 2019-05-03 08:30:00 Weaver, Yaneth Arias LUPUS ANTICOAGULANT PANEL 2019-05-03 08:30:00 Weaver, Yaneth Arias AMYLASE LEVEL 2019-05-03 08:30:00 Weaver, Yaneth Arias ESTIMATED GFR 2019-05-03 08:30:00 Weaver, Yaneth Arias LOW RESOLUTION FULL TYPING BY SSO 2019-05-03 08:30:00 Weaver, Leoncio Arias SINGLE ANTIGEN BEADS 2019-05-03 08:30:00 Weaver, Yaneth Arias HLA AUTOLOGOUS CROSSMATCH 2019-05-03 08:30:00 Weaver, Yaneth Arias C1Q CLASS 1 & 2 ANTIBODY 2019-05-03 08:30:00 Weaver, Yaneth Arias MISCELLANEOUS REFERRAL TEST 2019-05-03 08:30:00 Weaver, Yaneth Arias URINE CULTURE 2019-04-06 08:57:00 Weaver, Yaneth Arias COMPREHENSIVE METABOLIC PANEL 2019-04-06 08:00:00 Weaver, Claudio Arias URINALYSIS SCREEN AND MICROSCOPY, WITH REFLEX TO CULTURE 202 08:00:00 Weaver, Yaneth Airas HIV AG/AB COMBINATION 2019-04-06 08:00:00 Weaver, Yaneth Arias HEPATITIS A ANTIBODY TOTAL 2019-04-06 08:00:00 Weaver, Yaneth Arias HEPATITIS B CORE ANTIBODY TOTAL 2019-04-06 08:00:00 Weaver, Thomas Arias HEPATITIS B SURFACE AB, QUANTITATIVE 2019-04-06 08:00:00 Weaver, Yaneth Arias HEPATITIS B SURFACE ANTIGEN 2019-04-06 08:00:00 Weaver, Yaneth Arias HEPATITIS C ANTIBODY 2019-04-06 08:00:00 Weaver, Yaneth Arias HC COMPLETE BLD COUNT W/AUTO DIFF 2019-04-06 08:00:00 Weaver, Leoncio Arias PROTHROMBIN TIME WITH INR 2019-04-06 08:00:00 Weaver, Yaneth Arias PARTIAL THROMBOPLASTIN TIME (PTT) 2019-04-06 08:00:00 Weaver, Leoncio Arias C-PEPTIDE 2019-04-06 08:00:00 Weaver, Yaneth Arias HEMOGLOBIN A1C 2019-04-06 08:00:00 Weaver, Yaneth Arias GLUTAMIC ACID DECARBOXYLASE AB 2019-04-06 08:00:00 Weaver, Rosalina Arias IA-2 ANTIBODY 2019-04-06 08:00:00 Weaver, Yaneth Arias NICOTINE AND COTININE, SERUM 2019-04-06 08:00:00 Weaver, Yaneth Arias ABO/RH 2019-04-06 08:00:00 Weaver, Yaneth Arias DRUG LIZAMA 9, SER/LILIAN, SCRN W/RFLX TO CONF 2019-04-06 08:00:00 Weaver, Yaneth Arias ESTIMATED GFR 2019-04-06 08:00:00 Weaver, Yaneth Arias HEPATITIS A ANTIBODY IGM 2019-04-06 08:00:00 Weaver, Yaneth Arias RPR 2019-04-06 08:00:00 Weaver, Yaneth Arias TREPONEMA PALLIDUM AB 2019-04-06 08:00:00 Weaver, Yaneth Arias REMOVAL OF DRAINAGE DEVICE FROM KIDNEY, EXTERNAL APPROACH 2018-02 00:00:00 [facility] DRAINAGE OF RIGHT KIDNEY WITH DRAINAGE DEVICE, PERC AP PROACH 2019-02-15 00:00:00 [facility] DILATION OF RIGHT URETER WITH INTRALUMINAL DEVICE, ENDO 00:00:00 [facility] DILATION OF LEFT URETER, ENDO 2019-02-15 00:00:00 [facility] FLUOROSCOPY OF KIDNEY, URETER & BLADDER USING L [facility] CO NTRAST 2019-02-15 00:00:00 [facility] CHANGE DRAINAGE DEVICE IN BLADDER, EXTERNAL APPROACH 2019-02-15 00:00:00 [facility] Echo guide for biopsy 2019-02-15 00:00:00 [facility] RESECTION OF PREPUCE, EXTERNAL APPROACH 2018-11-05 00:00:00 [facility] CHANGE DRAINAGE DEVICE IN BLADDER, EXTERNAL APPROACH 2018-11-05 00:00:00 [facility] DILATION OF BILATERAL URETERS, ENDO 2018-11-05 00:00:00 [facility] FLUOROSCOPY OF KIDNEY, URETER & BLADDER USING L [facility] CO NTRAST 2018-11-05 00:00:00 [facility] LOWER ESOPHAGUS, ENDO, DIAGN 2018-11-01 00:00:00 [facility] EXCISION OF STOMACH, PYLORUS, ENDO, DIAGN 2018-11-01 00:00:[address] [facility] [address] of abdomen and pelvis without contrast 2018-10-31 00:00:[address] [facility] [address] of abdomen and pelvis without contrast 2018-10-18 00:00:00 [facility] Hernia repair<sup>1</sup> Meet [place] RUSTY [facility] Provision of collar<sup>2</sup> [facility] [place] [facility] Planned Activity Planned Date Details Comments Source Future Scheduled Test 2019-09-24 00:00:00 INFLUENZA VACCINE [code = INFLUENZA VACCINE] [facility] Future Scheduled Test 1990 00:00:00 DIABETIC FOOT EXAM [code = DIABETIC FOOT EXAM] [facility] Future Scheduled Test 1980 00:00:00 DIABETIC RETINAL E YE EXAM [code = DIABETIC RETINAL EYE EXAM] [facility] Instructions AV Fistula Care [facility] Encounters Start Date/Time End Date/Time Encounter Type Admission Type Att[facility] Care Department Encounter ID Source 2019-08-01 00:00:00 2019-08-01 00:00:[address] [facility] [id number] [facility] 2019-08-01 00:00:00 2019-08-01 00:00:00 Outpatient MERCY PRESSLEY [facility] [id number] [facility] 2019-06-12 11:12:00 2019-06-22 20:38:00 Discharged Inpatient 1 ABHIJIT YODER [facility] [id number] [facility] 2019-06-09 03:55:00 2019-06-09 06:51:00 Departed Emergency Room [address] [facility] [id number] [facility] 2019-05-30 02:39:00 2019-06-03 17:47:00 Discharged Inpatient 1 [facility] [id number] [facility] 2019-05-06 21:01:00 2019-05-21 14:22:00 Discharged Inpatient 1 ABHIJIT YODER [facility] [id number] [facility] 2019-05-03 00:00:00 2019-05-03 00:00:[address] [facility] [id number] [facility] 2019-05-03 00:00:00 2019-05-03 00:00:00 Outpatient WEAVER, ROSALINA RD [facility] [id number] [facility] 2019-05-03 00:00:00 2019-05-03 00:00:00 Outpatient WEAVER, ROSALINA RD [facility] [id number] [facility] 2019-03-20 22:29:00 2019-03-21 03:04:00 [facility]ed Emergency [facility] [id number] [facility] 2019-02-15 09:15:00 2019-02-20 13:07:00 [facility]charged [facility] [id number] [facility] 2019-01-14 13:07:00 2019-01-14 13:07:00 Registered Clinic 3 ELÓN GISSELLE[facility] [id number] [facility] 2018-12-10 08:30:00 2018-12-10 08:30:00 Appointment; NELSON NG M.D. MELTON, DANIELLE, M.D. UTP [facility] [id number] [facility] 2018-11-11 07:14:00 2018-11-11 12:00:00 Departed Emergency Room 1 LUZ MARINA CURRIE [facility] [id number] [facility] 2018-10-31 03:34:00 2018-11-08 11:44:00 Discharged Inpatient 1 BEV FLORES [facility] [id number] [facility] 2018-10-17 02:37:00 2018-10-29 10:57:00 Discharged Inpatient 1 ABHIJIT YODER [facility] [id number] [facility] 2018-06-20 18:21:00 2018-06-27 15:47:00 Discharged Inpatient [facility] [id number] [facility] 2018-06-11 09:00:00 2018-06-11 09:00:00 Appointment; NELSON NG M.D. MELTON, DANIELLE, M.D. [facility] [id number] [facility] 2018-05-04 01:45:00 2018-05-07 17:46:00 Discharged Inpatient 1 YOJANA HADDAD [facility] [id number] [facility] 2018-02-12 12:00:00 2018-02-12 12:00:00 Appointment; NELSON NG M.D. MELTON, DANIELLE, M.D. [facility] UTP [id number] [facility] 2018-01-06 15:15:00 2018-01-06 15:15:00 Appointment; NELSON NG M.D. MELTON, DANIELLE, M.D. [facility] UTP [id number] [facility] 2017-12-11 11:30:00 2017-12-11 11:30:00 Appointment; NELSON NG M.D. MELTON, DANIELLE, M.D. [facility] UTP [id number] [facility] 2017-12-01 09:00:00 2017-12-01 23:59:59 [facility] [id number] 2017-11-30 10:32:00 2017-12-01 23:59:59 Outpatient [facility] [id number] 2017-11-13 11:45:00 2017-11-13 11:45:00 Appointment; NELSON NG M.D. MELTON, DANIELLE, M.D. [facility] UTP [id number] [facility] 2017-08-29 05:19:00 2017-09-01 12:03:00 Discharged Inpatient 1 MARIELLE MARSH [facility] [id number] [facility] 2017-08-07 11:00:00 2017-08-07 11:00:00 Appointment; NELSON NG M.D. MELTON, DANIELLE, M.D. [facility] [id number] [facility] 2017-08-07 08:30:00 2017-08-07 08:30:00 Appointment; NELSON NG M.D. MELTON, DANIELLE, M.D. [facility] UTP [id number] [facility] 2017-07-23 12:13:00 2017-07-23 23:59:00 Outpatient Joaquín Ha [id number] 2017-06-02 13:15:00 2017-06-02 13:15:00 Appointment; NELSON NG M.D. MELTON, DANIELLE, M.D. [facility] UTP [id number] [facility] 2017-06-02 13:15:00 2017-06-02 13:15:00 Outpatient Omayra Ng [facility] [id number] 2017-05-08 11:15:00 2017-05-08 11:15:00 Appointment; NELSON NG M.D. MELTON, DANIELLE, M.D. [facility] UTP [id number] [facility] 2017-02-25 10:00:00 2017-02-25 10:00:00 Appointment; NELSON NG M.D. MELTON, DANIELLE, M.D. [facility] [id number] [facility] 2017-01-25 02:48:00 2017-01-30 17:07:00 Discharged Inpatient ER MARGAUX [facility] [id number] [facility] 2017-01-07 14:15:00 2017-01-07 14:15:00 Appointment; NELSON NG M.D. MELTON, DANIELLE, M.D. [facility] UTP [id number] [facility] Results Test Description Test Time Test Comments Results Result Comments Source Capillary blood glucose measurement by glucometer (mas s/volume) 2019-06-22 19:22:00 Test Item Bedside Glucose (test code = 99275-4) 328 70-120 Meter ID: [id number] Memorial Hospitalerum or plasma sodium measurement (moles/volume)2019-06-22 05:05:00* Test Item Value Reference Range Interpretation Comments Sodium Level (test code = 2951-2) 135 136-145 [facility] HospitalVen[facility] blood ionized calcium measurement (mass/volume)2019-06-22 05:05:00* Test Item Value Reference Range Interpretation Comments Ionized Calcium (test code = 95282-7) 1.1 1.09-1.30 [facility] Hospital[facility] or plasma potassium measurement (moles/volume)2019-06-22 05:05:00* Test Item Value Reference Range Interpretation Comments Potassium Level (test code = 2823-3) 4.5 3.5-5.1 [facility] Hospital[facility] or plasma chloride measurement (moles/volume)2019-06-22 05:05:00* Test Item Value Reference Range Interpretation Comments Chloride Level (test code = 2075-0) 100 98-107 [facility] Hospitalerum or plasma carbon dioxide, total measurement (moles/volume)2019-06-22 05:05:00* Test Item Value Reference Range Interpretation Comments Carbon Dioxide Level (test code = 2028-9) 30 22-29 [facility] Hospitalerum or plasma anion ejz0379-14-14 05:05:00* Test Item Value Reference Range Interpretation Comments Anion Gap (test code = 12422-5) 9.5 8-16 [facility] Hospitaler[facility] or plasma urea nitrogen measurement (mass/volume)2019-06-22 05:05:00* Test Item Value Reference Range Interpretation Comments Blood Urea Nitrogen (test code = 3094-0) 34 7-26 [facility] Hospitaler[facility] or plasma creatinine measurement (mass/volume)2019-06-22 05:05:00* Test Item Value Reference Range Interpretation Comments Creatinine (test code = 2160-0) 4.42 0.72-1.25 [facility] Hospitalerum or plasma urea nitrogen/creatinine mass svfby0683-53-16 05:05:00* Test Item Value Reference Range Interpretation Comments BUN/Creatinine Ratio (test code = 3097-3) 8 6-25 [facility] HospitalEstimated glomerular filtration rate (GFR) ugymaocdqjtfk1118-83-99 05:05:00* Test Item Value Reference Range Interpretation Comments Estimat Glomerular Filtration Rate (test code = 954635922) 15 >60 Ranges were taken from the National Kidney Disease Education Program and the [facility] Kidney Foundation literature.Reference ranges:60 or greater: Vlfmzl04-53 ( for 3 consecutive months): Chronic kidney disease 15 or less: Kidney failureGonzales Memorial HospitalGlucose dlvvvgrvhqi0595-84-07 05:05:00* Test Item Value Reference Range Interpretation Comments Glucose Level (test code = HYU1085) 271 74-118 [facility] Hospitaler[facility] or plasma calcium measurement (mass/volume)2019-06-22 05:05:00* Test Item Value Reference Range Interpretation Comments Calcium Level (test code = 95719-9) 7.7 8.4-10.2 [facility] Hospitalerum or plasma albumin measurement (mass/volume)2019-06-22 05:05:00* Test Item Value Reference Range Interpretation Comments Albumin (test code = 1751-7) 1.6 3.5-5.0 [facility] HospitalBlood leukocytes automated count (number/volume)2019-06-20 05:10:00* Test Item Value Reference Range Interpretation Comments White Blood Count (test code = 6690-2) 3.29 4.8-10.8 [facility] HospitalBlood erythrocytes automated count (number/volume)2019-06-20 05:10:00* Test Item Value Reference Range Interpretation Comments Red Blood Count (test code = 789-8) 3.57 4.3-5.7 [facility] HospitalBl[facility] hemoglobin measurement (moles/volume)2019-06-20 05:10:00* Test Item Value Reference Range Interpretation Comments Hemoglobin (test code = 16524-1) 9.0 14.0-18.0 [facility] HospitalAutomated blood hematocrit (volume fraction)2019-06-20 05:10:00* Test Item Value Reference Range Interpretation Comments Hematocrit (test code = 4544-3) 29.1 38.2-49.6 [facility] HospitalAutomated erythrocyte mean corpuscular zamsmh9492-96-71 05:10:00* Test Item Value Reference Range Interpretation Comments Mean Corpuscular Volume (test code = 787-2) 81.5 81-99 [facility] HospitalAutomated erythrocyte mean corpuscular hemoglobin (mass per erythrocyte)2019-06-20 05:10:00* Test Item Value Reference Range Interpretation Comments Mean Corpuscular Hemoglobin (test code = 785-6) 25.2 28-32 [facility] HospitalAutscionhealthed erythrocyte mean corpuscular hemoglobin concentration measurement (mass/volume)2019-06-20 05:10:00* Test Item Value Reference Range Interpretation Comments Mean Corpuscular Hemoglobin Concent (test code = 786-4) 30.9 31-35 [facility] HospitalRDW RxyTx-Sqn1176-90-27 05:10:00* Test Item Value Reference Range Interpretation Comments Red Cell Distribution Width (test code = 32899-1) 14.9 11.7 -14.4 [facility] HospitalAutomated blood platelet count (count/volume)2019-06-20 05:10:00* Test Item Value Reference Range Interpretation Comments Platelet Count (test code = 777-3) 133 140-360 [facility] segmented neutrophil count as percentage of total neztzjjxhp5082-58-37 05:10:00* Test Item Value Reference Range Interpretation Comments Neutrophils (%) (Auto) (test code = 10117-5) 48.9 38.7-80.0 [facility] HospitalAutomated blood lymphocyte count as percentage ot total qsytbxkwma3600-68-96 05:10:00* Test Item Value Reference Range Interpretation Comments Lymphocytes (%) (Auto) (test code = 736-9) 31.0 18.0-39.1 [facility] HospitalAutomated blood monocyte count as percentage of total dgbfllagmx6737-78-86 05:10:00* Test Item Value Reference Range Interpretation Comments Monocytes (%) (Auto) (test code = 5905-5) 11.9 4.4-11.3 [facility] HospitalAutomated blood eosinophil count as percentage of total jgowkkyzht9135-16-84 05:10:00* Test Item Value Reference Range Interpretation Comments Eosinophils (%) (Auto) (test code = 713-8) 7.3 0.0-6.0 [facility] HospitalAutomated blood basophil count as percentage of total sdxhxkylcc4355-29-75 05:10:00* Test Item Value Reference Range Interpretation Comments Basophils (%) (Auto) (test code = 706-2) 0.3 0.0-1.0 [facility] HospitalFluoroscopic procedure less than one hour hrwunkzg0637-45-01 05:10:00* Test Item Value Reference Range Interpretation Comments IM GRANULOCYTES % (test code = IM GRANULOCYTES %) 0.6 0.0- 1.0 [facility] HospitalAutomated blood neutrophil count 2019-06-20 05:10:00* Test Item Value Reference Range Interpretation Comments Neutrophils # (Auto) (test code = 751-8) 1.6 2.1-6.9 [facility] HospitalBlood lymphocytes count (number/volume) 2019-06-20 05:10:00* Test Item Value Reference Range Interpretation Comments Lymphocytes # (Auto) (test code = 09617-0) 1.0 1.0-3.2 [facility] HospitalBlriver[facility] edge hospital monocytes automated count (number/volume)2019-06-20 05:10:00* Test Item Value Reference Range Interpretation Comments Monocytes # (Auto) (test code = 742-7) 0.4 0.2-0.8 [facility] HospitalAutomated blood eosinophil count 2019-06-20 05:10:00* Test Item Value Reference Range Interpretation Comments Eosinophils # (Auto) (test code = 711-2) 0.2 0.0-0.4 [facility] HospitalAutomated blood basophil count (count/volume)2019-06-20 05:10:00* Test Item Value Reference Range Interpretation Comments Basophils # (Auto) (test code = 704-7) 0.0 0.0-0.1 [facility] HospitalFluoroscopic procedure less than one hour qbrrnfyc1500-49-58 05:10:00* Test Item Value Reference Range Interpretation Comments Absolute Immature Granulocyte (auto (shin t code = Absolute Immature Granulocyte (auto) 0.02 0-0.1 [facility] HospitalCHEST 2 VPWPJ0907-32-50 10:46:00 [place] [address] Patient Name: MANJIT LUO MR #: [id number] : 1980 Age/Sex: 38/M Req #: [id number] Adm Physician: ABHIJIT YODER MD Ordered by: TONY MAY MD Report #: [id number] Location: MED/SURG Room/Bed: [facility] Procedure: [id number] DX/CH EST 2 VIEWS Exam Date: Exam Time: REPORT STATUS: Signed EXAMINATION: CHEST 2 VIEWS INDICATION: Postoperative fever COMPARISON: Chest radiograph 05/25 FINDINGS: LINES/TUBES:Left IJ tunneled central venous cath eter terminates just beyond the superior cavoatrial junction. EKG leads overli e the chest. LUNGS:The lungs are moderately inflated. No focal consolidatio n or pulmonary edema. PLEURA:No pleural effusion or pneumothorax. ME DIASTINUM:The cardiomediastinal silhouette appears unchanged in size and shape . BONES/SOFT TISSUES:No acute osseous injury. ABDOMEN:Increasing pneum operitoneum. Status post cholecystectomy. IMPRESSION: Worsening pneum operitoneum. No focal pneumonia or pulmonary edema. Signed by: Jose F Ferrer MD on 06/16/2019 10:47 AM Dictated By: JOSE F FERRER MD [id number] Transcribed By: TIFFANY on 06/16/19 1 047 COPY TO: TONY MAY MD Blood fjeosrg4770-74-87 09:50:00* Test Item Value Reference Range Interpretation Comments Blood Culture (test code = 16034239) NO GROWTH AFTER 5 DAYS, FINAL REPORT [facility] Hospitalerum or plasma intact pararthyroid hormone measurement (mass/volume)2019-06-15 05:20:00* Test Item Value Reference Range Interpretation Comments Parathyroid Hormone (Intact) (test code = 2731-8) 313 15-6 5 Performed at: - [facility] [id number] Director: Doc Bartlett MD, Phone: [phone] Memorial Hospitalerum or plasma magnesium measurement (mass/volume)2019-06-13 17:37:00* Test Item Value Reference Range Interpretation Comments Magnesium Level (test code = 43604-8) 1.5 1.3-2.1 [facility] HospitalCHEST SINGLE (PORTABLE)2019-06-13 17:09:00 [place] [address] Patient Name: MANJIT LUO MR #: [id number] : 1980 Age/Sex: 38/M Req #: [id number] Adm Physician: ABHIJIT YODER MD Ordered by: TONY MAY MD Report #: [id number] Location: MED/SURG Room/Bed: [facility] Procedure: [id number] DX/CH EST SINGLE (PORTABLE) Exam Date: 06/13/19 Exam Time: 1640 REPORT STATUS: Signed EXAM INATION: CHEST SINGLE (PORTABLE) INDICATION: Postoperative COMPAR JOVANNA: Chest radiograph 06/12/2019 FINDINGS: LINES/TUBES:EKG leads overlie the chest.. Enteric tube projects below the diaphragm with tip not vis ualized. Left IJ tunneled central venous catheter unchanged. LUNGS:The tommie ngs are moderately inflated. No focal consolidation or pulmonary edema. P LEURA:No pleural effusion or pneumothorax. MEDIASTINUM:The cardiomediastina l silhouette appears normal in size and shape. BONES/SOFT TISSUES:No acute osseous injury. ABDOMEN:Pneumoperitoneum. IMPRESSION: Postoperat stuart pneumoperitoneum. No pneumothorax. No focal pneumonia or pulmonary elaina a. Signed by: Jose F Ferrer MD on 06/13/2019 5:11 PM Dictated By: LAYO FERRER MD 10 Transcribed By: TIFFANY on 06/13/191710 COPY TO: TONY MAY MD Serum or plasma total bilirubin measurement (mass/volume)2019-06-13 05:30:00* Test Item Value Reference Range Interpretation Comments Total Bilirubin (test code = 1975-2) 0.3 0.2-1.2 [facility] HospitalFluoroscopic procedure less than one hour shmfjoph5565-37-28 05:30:00* Test Item Value Reference Range Interpretation Comments Aspartate Amino Transf (AST/SGOT) (test code = Aspartate Amino Transf (AST/SGOT)) 38 5-34 [facility] Hospitalerum or plasma alanine aminotransferase measurement (enzymatic activity/volume)2019-06-13 05:30:00* Test Item Value Reference Range Interpretation Comments Alanine Aminotransferase (ALT/SGPT) (test code = 1742-6) 22 0-55 [facility] Hospitalerum or plasma protein measurement (mass/volume)2019-06-13 05:30:00* Test Item Value Reference Range Interpretation Comments Total Protein (test code = 2885-2) 7.6 6.5-8.1 [facility] HospitalPlasma globulin measurement (mass/volume) 2019-06-13 05:30:00* Test Item Value Reference Range Interpretation Comments Globulin (test code = 02474-2) 5.1 2.3-3.5 [facility] Hospitalerum or plasma albumin/globulin mass tpcvs3316-73-54 05:30:00* Test Item Value Reference Range Interpretation Comments Albumin/Globulin Ratio (test code = 1759-0) 0.5 0.8-2.0 [facility] Hospitalerum or plasma alkaline phosphatase measurement (enzymatic activity/volume)2019-06-13 05:30:00* Test Item Value Reference Range Interpretation Comments Alkaline Phosphatase (test code = 6768-6) 332 40-150 [facility] HospitalUrine color cmuhcroszuqtf1971-11-90 12:24:00* Test Item Value Reference Range Interpretation Comments Urine Color (test code = 5778-6) YELLOW YELLOW [facility] HospitalUrine pdxjsph6618-04-51 12:24:00* Test Item Value Reference Range Interpretation Comments Urine Clarity (test code = 85825-9) TURBID CLEAR [facility] Hospitalpecific gravity of Urine by Test strip 2019-06-12 12:24:00* Test Item Value Reference Range Interpretation Comments Urine Specific [place] (test code = 5811-5) 1.020 1.010-1.02 5 [facility] HospitalUrine pH measurement by automated test tymlo0026-55-41 12:24:00* Test Item Value Reference Range Interpretation Comments Urine pH (test code = 16644-2) 6 5-7 [facility] HospitalUrine leukocyte esterase detection by rpbojtmj4815-99-74 12:24:00* Test Item Value Reference Range Interpretation Comments Urine Leukocyte Esterase (test code = 5799-2) 1+ NEGATIVE [facility] HospitalUrine nitrite wfvloivay0204-59-26 12:24:00* Test Item Value Reference Range Interpretation Comments Urine Nitrite (test code = 89090-0) NEGATIVE NEGATIVE [facility] HospitalUrine protein measurement by test strip (mass/volume)2019-06-12 12:24:00* Test Item Value Reference Range Interpretation Comments Urine Protein (test code = 5804-0) >=300 NEGATIVE [facility] HospitalUrine glucose azebfoglk2873-61-44 12:24:00* Test Item Value Reference Range Interpretation Comments Urine Glucose (UA) (test code = 2349-9) NEGATIVE NEGATIVE [facility] HospitalUrine ketones detection by automated test dzcww3080-24-34 12:24:00* Test Item Value Reference Range Interpretation Comments Urine Ketones (test code = 28107-4) TRACE NEGATIVE [facility] HospitalUrine urobilinogen measurement by test strip (mass/volume)2019-06-12 12:24:00* Test Item Value Reference Range Interpretation Comments Urine Urobilinogen (test code = 68673-1) 0.2 0.2-1 [facility] HospitalUrine total bilirubin measurement (mass/volume)2019-06-12 12:24:00* Test Item Value Reference Range Interpretation Comments Urine Bilirubin (test code = 1978-6) NEGATIVE NEGATIVE [facility] HospitalUrine erythrocytes djplrzsgx9690-57-24 12:24:00* Test Item Value Reference Range Interpretation Comments Urine Blood (test code = 08986-2) 3+ NEGATIVE [facility] HospitalAutomated urine sediment leukocyte count by microscopy (number/high power field)2019-06-12 12:24:00* Test Item Value Reference Range Interpretation Comments Urine WBC (test code = 5821-4) 21-50 0-5 [facility] HospitalErythrocytes detection in urine sediment by light spfznztzuv6269-15-76 12:24:00* Test Item Value Reference Range Interpretation Comments Urine RBC (test code = 44756-5) 11-20 0-5 [facility] HospitalBacteria detection in urine sediment by light vsqslxgbzk4237-58-52 12:24:00* Test Item Value Reference Range Interpretation Comments Urine Bacteria (test code = 13919-7) MANY NONE [facility] HospitalEpithelial cells detection in urine sediment by light deqnpaxyop7789-26-32 12:24:00* Test Item Value Reference Range Interpretation Comments Urine Epithelial Cells (test code = 69549-3) RARE NONE [facility] HospitalMucus detection in urine sediment by light irywtzblrs1986-45-76 12:24:00* Test Item Value Reference Range Interpretation Comments Urine Mucus (test code = 8247-9) FEW RARE [facility] HospitalBNP Bjj-gUrs3896-61-19 12:15:00* Test Item Value Reference Range Interpretation Comments B-Type Natriuretic Peptide (test code = 52681-9) 218.9 0-100 [facility] Hospitalerum or plasma creatine kinase measurement (enzymatic activity/volume)2019-06-12 12:15:00* Test Item Value Reference Range Interpretation Comments Creatine Kinase (test code = 2157-6) 65 30-200 [facility] Hospitalerum or plasma creatine kinase MB measurement (mass/volume)2019-06-12 12:15:00* Test Item Value Reference Range Interpretation Comments Creatine Kinase MB (test code = 38007-7) 3.90 0-5.0 [facility] HospitalTroponin I measurement by highly sensitive enzyme wmsoclmjvwi4080-27-88 12:15:00* Test Item Value Reference Range Interpretation Comments Troponin I (test code = 76541-6) 0.053 0-0.300 [facility] Hospitalerum or plasma lipase measurement (enzymatic activity/volume)2019-06-12 12:15:00* Test Item Value Reference Range Interpretation Comments Lipase (test code = 3040-3) 14 8-78 [facility] Hospitalerum or plasma ethanol measurement (mass/volume)2019-06-12 12:15:00* Test Item Value Reference Range Interpretation Comments Ethyl Alcohol Level (test code = 5643-2) < 10.0 0.0-10.0 [facility] HospitalCHEST SINGLE (PORTABLE)2019-06-12 12:12:00 [facility] [address] [place] [address] Patient Name: MANJIT LUO MR #: [id number] : 1980 Age/Sex: 38/M Req #: [id number] Adm Physician: Ordered by: GABINO JONATHAN CHIU Report #: [id number] Location: ER Room/Bed: Procedure: [id number] DX/ CHEST SINGLE (PORTABLE) Exam Date: 06/12/19 Exam Cm e: 1100 REPORT STATUS: Signed EX AMINATION: CHEST SINGLE (PORTABLE) COMPARISON: Chest x-ray 05/30/2019 INDICATION: Pain. DISCUSSION: HEART AND MEDIASTINUM: The heart is normal in size. LINES: Left tunneled venous catheter with distal tip projected on the cavoatrial junction has been placed. Right sided dialysis cat heter has been removed. LUNGS: The lungs are well inflated and clear. No pneumonia or pulmonary edema. PLEURA: No pleural effusion or pneumothorax. BONES AND SOFT TISSUES: No focal osseous lesion. The soft tissues are no rmal. IMPRESSION: No acute thoracic abnormality. Signed by: Dr. Arturo Humphrey M.D. on 06/12/2019 12:15 PM Dictated By: ALEXIA ROSE MD, MD [address] scribed By: TIFFANY on 06/12/19 1215 COPY TO: JONATHAN YODER DO Urine [id number] 06:13:00* Test Item Value Reference Range Interpretation Comments Urine WBC (test code = 5821-4) >50 0-5 [facility] TDJ2728-76-05 06:13:00* Test Item Value Reference Range Interpretation Comments Urine RBC (test code = 15565-0) 11-20 0-5 [facility] Wbvqgodw1898-79-22 06:13:00* Test Item Value Reference Range Interpretation Comments Urine Bacteria (test code = 05009-1) FEW NONE [facility] Epithelial Mclgn0581-97-84 06:13:00 * Test Item Value Reference Range Interpretation Comments Urine Epithelial Cells (test code = 78302-2) FEW NONE [facility] HospitalU[facility] Fzclv0333-09-04 05:56:00* Test Item Value Reference Range Interpretation Comments Urine Color (test code = 5778-6) YELLOW YELLOW [facility] Elsferw5011-66-79 05:56:00* Test Item Value Reference Range Interpretation Comments Urine Clarity (test code = 31074-0) CLOUDY CLEAR H [facility] HospitalUrine Specific Yzhbzkm6220-40-74 05:56:00 * Test Item Value Reference Range Interpretation Comments Urine Specific [place] (test code = 5811-5) 1.025 1.010-1.02 5 [facility] HospitalU[facility] cJ4954-04-78 05:56:00* Test Item Value Reference Range Interpretation Comments Urine pH (test code = 32612-8) 7 5-7 [facility] Leukocyte Ysaletht3644-79-93 05:56:00* Test Item Value Reference Range Interpretation Comments Urine Leukocyte Esterase (test code = 5799-2) MODERATE NEGATIVE [facility] Hospital[facility] Pcitnze9611-57-22 05:56:00* Test Item Value Reference Range Interpretation Comments Urine Nitrite (test code = 71705-7) NEGATIVE NEGATIVE [facility] Hospital[facility] Zlklmus8686-66-91 05:56:00* Test Item Value Reference Range Interpretation Comments Urine Protein (test code = 5804-0) >=300 NEGATIVE [facility] HospitalU[facility] Glucose (UA)2019-06-09 05:56:00* Test Item Value Reference Range Interpretation Comments Urine Glucose (UA) (test code = 2349-9) NEGATIVE NEGATIVE [facility] Hospital[facility] Zwbvofw3982-22-93 05:56:00* Test Item Value Reference Range Interpretation Comments Urine Ketones (test code = 60003-2) NEGATIVE NEGATIVE [facility] Hospital[facility] Yofhtuibxmxt6608-72-71 05:56:00* Test Item Value Reference Range Interpretation Comments Urine Urobilinogen (test code = 97003-1) 0.2 0.2-1 [facility] Ehaabwmgl0905-28-66 05:56:00* Test Item Value Reference Range Interpretation Comments Urine Bilirubin (test code = 1978-6) NEGATIVE NEGATIVE [facility] HospitalU[facility] Okqok6534-16-74 05:56:00* Test Item Value Reference Range Interpretation Comments Urine Blood (test code = 98697-7) 2+ NEGATIVE [facility] HospitalAmylase Ypagq1277-90-44 05:47:00* Test Item Value Reference Range Interpretation Comments Amylase Level (test code = 1798-8) 41 25-125 [facility] HospitalLipase2020-04-16 05:47:00* Test Item Value Reference Range Interpretation Comments Lipase (test code = 3040-3) 15 8-78 [facility] Zswlb5700-46-72 05:37:00* Test Item Value Reference Range Interpretation Comments Sodium Level (test code = 2951-2) 135 136-145 L [facility] HospitalPotassium Svsyj3467-07-91 05:37:00* Test Item Value Reference Range Interpretation Comments Potassium Level (test code = 2823-3) 5.0 3.5-5.1 [facility] HospitalChloride Fptda0008-97-03 05:37:00* Test Item Value Reference Range Interpretation Comments Chloride Level (test code = 2075-0) 107 98-107 [facility] HospitalCarbon Dioxide Fkftn8679-57-12 05:37:00* Test Item Value Reference Range Interpretation Comments Carbon Dioxide Level (test code = 2028-9) 20 22-29 L [facility] HospitalAnion Bvt9962-26-60 05:37:00* Test Item Value Reference Range Interpretation Comments Anion Gap (test code = 77793-1) 13.0 8-16 [facility] HospitalBlood Urea Nnpcafvn8875-12-41 05:37:00* Test Item Value Reference Range Interpretation Comments Blood Urea Nitrogen (test code = 3094-0) 55 7-26 H [facility] HospitalCreatinine2020-04-16 05:37:00* Test Item Value Reference Range Interpretation Comments Creatinine (test code = 2160-0) 5.13 0.72-1.25 H [facility] HospitalBUN/Creatinine Fwnud9589-16-85 05:37:00* Test Item Value Reference Range Interpretation Comments BUN/Creatinine Ratio (test code = 3097-3) 11 6-25 [facility] HospitalEstimat Glomerular Filtration Rate 2019-06-09 05:37:00* Test Item Value Reference Range Interpretation Comments Estimat Glomerular Filtration Rate (test code = 350770831) 13 >60 L Ranges were taken from the National Kidney Disease Education Program and the [facility] Kidney Foundation literature.Reference ranges:60 or greater: Adrxzy74-55 ( for 3 consecutive months): Chronic kidney disease 15 or less: Kidney failureGonzales Memorial HospitalGlucose Kruvy3938-24-10 05:37:00* Test Item Value Reference Range Interpretation Comments Glucose Level (test code = KBM7326) 148 74-118 H [facility] HospitalCalcium Xwwlj0662-36-76 05:37:00* Test Item Value Reference Range Interpretation Comments Calcium Level (test code = 55541-0) 7.6 8.4-10.2 L [facility] HospitalTotal Qxzmbhqov8354-96-25 05:37:00* Test Item Value Reference Range Interpretation Comments Total Bilirubin (test code = 1975-2) 0.2 0.2-1.2 [facility] HospitalAspartate Amino Transf (AST/SGOT) 2019-06-09 05:37:00* Test Item Value Reference Range Interpretation Comments Aspartate Amino Transf (AST/SGOT) (test code = Aspartate Amino Transf (AST/SGOT)) 18 5-34 [facility] HospitalAlanine Aminotransferase (ALT/SGPT) 2019-06-09 05:37:00* Test Item Value Reference Range Interpretation Comments Alanine Aminotransferase (ALT/SGPT) (test code = 1742-6) 17 0-55 [facility] HospitalTotal Vhneuqk1942-23-59 05:37:00* Test Item Value Reference Range Interpretation Comments Total Protein (test code = 2885-2) 8.0 6.5-8.1 [facility] HospitalAlbumin2020-04-16 05:37:00* Test Item Value Reference Range Interpretation Comments Albumin (test code = 1751-7) 2.7 3.5-5.0 L [facility] HospitalGlobulin2020-04-16 05:37:00* Test Item Value Reference Range Interpretation Comments Globulin (test code = 38808-7) 5.3 2.3-3.5 H [facility] HospitalAlbumin/Globulin Orezj0672-82-27 05:37:00 * Test Item Value Reference Range Interpretation Comments Albumin/Globulin Ratio (test code = 1759-0) 0.5 0.8-2.0 L [facility] HospitalAlkaline Jrvjivrgzip6141-67-29 05:37:00* Test Item Value Reference Range Interpretation Comments Alkaline Phosphatase (test code = 6768-6) 279 40-150 H [facility] HospitalABDOMEN-1VIEW (KUB)2019-06-09 05:32:00 [place] [address] Patient Name: MANJIT LUO MR #: [id number] : 1980 Age/Sex: 38/M Req #: [id number] Adm Physician: Ordered by: MARIELLE MARSH MD Report #: [id number] Location: ER Room/Bed: Procedure: [id number] DX/ABDOMEN-1VIEW (KUB) Exam Date: Exam Time: REPORT STATUS: Signed EXAM: Abdo men Radiograph 1 View(s) INDICATION: back pain, has stent to right ureter , has peritonial cath Y COMPARISON: Abdominal CT 05/30/2019 FINDINGS: No abnormalities in the lower chest. Right internal nephroureteral aolnso ter with proximal and distal coils in the expected location of the right renal pelvis and urinary bladder respectively. Peritoneum catheter coils within the mid pelvis. Superior approach central venous catheter tip in the super ior aspect of the right atrium. Cholecystectomy clips. Calcification s in the right upper central abdomen are pancreatic parenchymal as seen on abd ominal CT 05/30/2019. Urinary bladder and the pubic Barcenas catheter tip projec ts within the mid pelvis. Normal volume of stool in the colon. No di lated loops of small bowel. No abnormal soft tissue masses. No pneumop eritoneum. No acute osseous abnormality. IMPRESSION: Lines, tubes , and chronic findings as above. No acute radiographic abdominal abnormalit y. Signed by: Abelino Robertson DO on 06/09/2019 5:36 AM Dictated By: Sherice ROBERTSON DO 36 Transcribed By: TIFFANY on 06/09/1936 COPY TO: MARIELLE MARSH MD Bacterial urine sbvujjl8049-70-68 05:25:00* Test Item Value Reference Range Interpretation Comments Urine Culture (test code = 630-4) SUMIT PARAPSILOSIS [facility] HospitalWhite Blood Ikbye9186-97-98 05:08:00* Test Item Value Reference Range Interpretation Comments White Blood Count (test code = 6690-2) 6.14 4.8-10.8 [facility] HospitalRed Blood Emgsn4372-39-48 05:08:00* Test Item Value Reference Range Interpretation Comments Red Blood Count (test code = 789-8) 3.63 4.3-5.7 L [facility] HospitalHemoglobin2020-04-16 05:08:00* Test Item Value Reference Range Interpretation Comments Hemoglobin (test code = 42397-3) 9.3 14.0-18.0 L [facility] HospitalHematocrit2020-04-16 05:08:00* Test Item Value Reference Range Interpretation Comments Hematocrit (test code = 4544-3) 29.7 38.2-49.6 L [facility] HospitalMean Corpuscular Acnjin4767-83-11 05:08:00* Test Item Value Reference Range Interpretation Comments Mean Corpuscular Volume (test code = 787-2) 81.8 81-99 [facility] HospitalMean Corpuscular Cocqordmfl8001-45-95 05:08:00* Test Item Value Reference Range Interpretation Comments Mean Corpuscular Hemoglobin (test code = 785-6) 25.6 28-32 L [facility] HospitalMean Corpuscular Hemoglobin Concent 2019-06-09 05:08:00* Test Item Value Reference Range Interpretation Comments Mean Corpuscular Hemoglobin Concent (test code = 786-4) 31.3 31-35 [facility] HospitalRed Cell Distribution Zmjho5708-56-03 05:08:00* Test Item Value Reference Range Interpretation Comments Red Cell Distribution Width (test code = 85591-4) 15.0 11.7 -14.4 H [facility] HospitalPlatelet Tqtsu7165-79-47 05:08:00* Test Item Value Reference Range Interpretation Comments Platelet Count (test code = 777-3) 141 140-360 [facility] HospitalNeutrophils (%) (Auto)2019-06-09 05:08:00 * Test Item Value Reference Range Interpretation Comments Neutrophils (%) (Auto) (test code = 16497-2) 68.2 38.7-80.0 [facility] HospitalLymphocytes (%) (Auto)2019-06-09 05:08:00 * Test Item Value Reference Range Interpretation Comments Lymphocytes (%) (Auto) (test code = 736-9) 18.7 18.0-39.1 [facility] HospitalMonocytes (%) (Auto)2019-06-09 05:08:00* Test Item Value Reference Range Interpretation Comments Monocytes (%) (Auto) (test code = 5905-5) 6.2 4.4-11.3 [facility] HospitalEosinophils (%) (Auto)2019-06-09 05:08:00 * Test Item Value Reference Range Interpretation Comments Eosinophils (%) (Auto) (test code = 713-8) 4.1 0.0-6.0 [facility] HospitalBasophils (%) (Auto)2019-06-09 05:08:00* Test Item Value Reference Range Interpretation Comments Basophils (%) (Auto) (test code = 706-2) 0.7 0.0-1.0 [facility] HospitalIM GRANULOCYTES %2019-06-09 05:08:00* Test Item Value Reference Range Interpretation Comments IM GRANULOCYTES % (test code = IM GRANULOCYTES %) 2.1 0.0- 1.0 H [facility] HospitalNeutrophils # (Auto)2019-06-09 05:08:00* Test Item Value Reference Range Interpretation Comments Neutrophils # (Auto) (test code = 751-8) 4.2 2.1-6.9 [facility] HospitalLymphocytes # (Auto)2019-06-09 05:08:00* Test Item Value Reference Range Interpretation Comments Lymphocytes # (Auto) (test code = 95888-3) 1.2 1.0-3.2 [facility] HospitalMonocytes # (Auto)2019-06-09 05:08:00* Test Item Value Reference Range Interpretation Comments Monocytes # (Auto) (test code = 742-7) 0.4 0.2-0.8 [facility] HospitalEosinophils # (Auto)2019-06-09 05:08:00* Test Item Value Reference Range Interpretation Comments Eosinophils # (Auto) (test code = 711-2) 0.3 0.0-0.4 [facility] HospitalBasophils # (Auto)2019-06-09 05:08:00* Test Item Value Reference Range Interpretation Comments Basophils # (Auto) (test code = 704-7) 0.0 0.0-0.1 [facility] HospitalAbsolute Immature Granulocyte (auto 2019-06-09 05:08:00* Test Item Value Reference Range Interpretation Comments Absolute Immature Granulocyte (auto (shin t code = Absolute Immature Granulocyte (auto) 0.13 0-0.1 H [facility] Hospitalerum or plasma amylase measurement (enzymatic activity/volume)2019-06-09 04:50:00* Test Item Value Reference Range Interpretation Comments Amylase Level (test code = 1798-8) 41 25-125 [facility] HospitalBlood Swnxauo6631-10-23 01:59:00* Test Item Value Reference Range Interpretation Comments Blood Culture (test code = 88634546) NO GROWTH AFTER 5 DAYS, FINAL REPORT [facility] HospitalBedside Rwhorqt2081-87-50 16:41:00* Test Item Value Reference Range Interpretation Comments Bedside Glucose (test code = 28028-7) 71 70-120 Meter ID: [id number] [facility] Glucose 2019-06-03 16:41:00* Test Item Value Reference Range Interpretation Comments Bedside Glucose (test code = 23414-0) 71 70-120 Meter ID: [id number] Memorial HospitalUrine Culture 2019-06-03 10:15:00* Test Item Value Reference Range Interpretation Comments Urine Culture (test code = 630-4) No Result Data Provided [facility] HospitalUrine Zcydonh9408-61-75 10:15:00* Test Item Value Reference Range Interpretation Comments Urine Culture (test code = 630-4) No Result Data Provided [facility] HospitalIR SLGOLIX7435-09-75 15:49:00 [facility] [address] [place] [address] Patient Name: MANJIT LUO MR #: [id number] : 1980 Age/Sex: 38/M Req #: [id number] Adm Physician: ABHIJIT YODER MD Ordered by: FAIZA DOWNEY Report #: [id number] Location: MED/SURG3 Room/Bed: [facility] Procedure: [id number] DX/IR CONSULT Exam Date: Exam Time: REPORT STATUS: Signed Procedures: 1. Tunneled central line placement 2. Tunneled dialysis catheter removal. History: Need for long-term IV antibiotics. Modality: Sonography and fluoroscopy. Sedation: fentanyl 50 mcg was given intravenously for conscious sedation. Vital signs were monitored throughout the procedure by a nurse, and remained stable. Physician intra-service time was 30. Primary Ope rator: Gen Anthony MD. Ornamental Ironworker: None. Approach: Left internal jugular vein Estimated blood loss: < 5 cc. Specimen: None. Fluoroscopy Time: 4.8 min. Dose (Ka,r): 33.4 mGy. Technique: Informed written consent was obtained. Discussion of risks, benefits, and alternatives were made with the patient. The patient expressed understanding and agreed to proceed. All elements maximal sterile barrier technique was utilized for this procedure, including utilization of sterile scrub solution for skin prep, a large sterile sheet to cover the areas of the patient that were not prepped, and hand hygiene, mask, head covering, and sterile gown for performing radiologist and scrub technologist. The skin was anesthetized with 2% lidocaine.Ultrasound evaluation showed a patent and compressible left internal jugular vein vein, which was punctured under direct real-time ultrasound guidance with a micropuncture needle. An ultrasound image was saved to PACS. A 0.018 inch wire was placed through the needle into the IVC. A 6 Macedonian peel-away sheath was placed. A subcutaneous tunnel was created in the left anterior chest wall by blunt dissection. A 6 [place]onian dual-lumen tunneled central line was brought through the tunnel and the catheter was advanced through the sheath, with its distal tip terminating at the cavoatrial junction. The peel-away sheath was removed. The ports were flushed and aspirated easily following placement. The catheter was sutured to the skin with 2-0 silk to secure its placement. The small jugular incision site was closed using resorbable suture. Next, the right chest was prepped and draped in sterile fashion. The indwelling tunneled dialysis catheter was removed with gentle traction and blunt dissection. Hemostasis was achieved with manual compr ession. A sterile dressing was applied. Vital signs were monitored thr oughout the procedure by a nurse, and remained stable. The patient tolerated the procedure well and left the department in the same condition Impression: Successful, uncomplicated placement of a left internal jugular tunneled central line using sonographic and fluoroscopic guidance. Successful, unc omplicated right internal jugular tunneled dialysis catheter removal. Sig sina by: Dr. Gen Anthony MD on 06/02/2019 3:52 PM Dictated By: GEN Swan MD 51 Transcribed By : TIFFANY on 06/02/191551 COPY TO: FAIZA DOWNEY TUNNELLED CVC INSERT W/O WVIE0451-22-02 15:49:00 [place] [address] Patient Name: MANJIT LUO MR #: [id number] : 1980 Age/Sex: 38/M Req #: [id number] [facility] Physician: ABHIJIT YODER MD Ordered by: ABHIJIT YODER MD Report #: [id number] Location: MED/SURG3 Room/Bed: [facility] Procedure: [id number] IR/TU NNELLED CVC INSERT W/O PORT Exam Date: Exam Time: REPORT STATUS: Signed Procedures: 1. Tunneled central line placement 2. Tunneled dialysis catheter removal. History: Need for long-term IV antibiotics. Modality: Sonography and fluoroscopy. Sedation: fentanyl 50 mcg was given intravenously for conscious sedation. Vital signs were monitored throughout the procedure by a nurse, and remained stable. Physician intra-service time was 30. Warehouse Logistics Coordinator: Gen Anthony MD. Ornamental Ironworker: None. Approach: Left internal jugular vein Estimated blood loss: < 5 cc. Specimen: None. Fluoroscopy Time: 4.8 min. Dose (Ka,r): 33.4 mGy. Technique: Informed written consent was obtained. Discussion of risks, benefits, and alternatives were made with the patient. The patient expressed understanding and agreed to proceed. All elements maximal sterile barrier technique was utilized for this procedure, including utilization of sterile scrub solution for skin prep, a large sterile sheet to cover the areas of the patient that were not prepped, and hand hygiene, mask, head covering, and sterile gown for performing radiologist and scrub technologist. The skin was anesthetized with 2% lidocaine.Ultrasound evaluation showed a patent and compressible left internal jugular vein vein, which was punctured under direct real-time ultrasound guidance with a micropuncture needle. An ultrasound image was saved to PACS. A 0.018 inch wire was placed through the needle into the IVC. A 6 Macedonian peel-away sheath was placed. A subcutaneous tunnel was created in the left anterior chest wall by blunt dissection. A 6 Macedonian dual- lumen tunneled central line was brought through the tunnel and the catheter wa s advanced through the sheath, with its distal tip terminating at the cavoatri al junction. The peel-away sheath was removed. The ports were flushed and asp irated easily following placement. The catheter was sutured to the skin with 2-0 silk to secure its placement. The small jugular incision site was closed using resorbable suture. Next, the right chest was prepped and draped in sterile fashion. The indwelling tunneled dialysis catheter was removed with g entle traction and blunt dissection. Hemostasis was achieved with manual compr ession. A sterile dressing was applied. Vital signs were monitored thr oughout the procedure by a nurse, and remained stable. The patient tolerated the procedure well and left the department in the same condition Impression: Successful, uncomplicated placement of a left internal jugular tunneled central line using sonographic and fluoroscopic guidance. Successful, unc omplicated right internal jugular tunneled dialysis catheter removal. Sig sina by: Dr. Gen Anthony MD on 06/02/2019 3:52 PM Dictated By: GEN Swan MD 51 Transcribed By : TIFFANY on 06/02/191551 COPY TO: ABHIJIT YODER MD US GUIDANCE FOR VASCULAR PCGYB7130-95-05 15:49:00 [facility] [address] [place] [address] Patient Name: MANJIT LUO MR #: [id number] : 1980 Age/Sex: 38/M Req #: [id number] Adm Physician: ABHIJIT YODER MD Ordered by: FAIZA DOWNEY Report #: [id number] Location: MED/SURG3 Room/Bed: [facility] Procedure: [id number] US/US GUIDANCE FOR VASCULAR ACCES Exam Date: 06/02/19 Exam Time: 1404 REPORT STATUS: S igned Procedures: 1. Tunneled central line placement 2. Tunneled dialysis catheter removal. History: Need for long-term IV antibiotics. Modality: Sonography and fluoroscopy. Sedation: fentanyl 50 mcg was given intrav enously for conscious sedation. Vital signs were monitored throughout the pro cedure by a nurse, and remained stable. Physician intra-service time was 30. Warehouse Logistics Coordinator: Gen Anthony MD. Ornamental Ironworker: None. Approach: Left internal jug ular vein Estimated blood loss: < 5 cc. Specimen: None. Fluoroscopy Time: 4.8 min. Dose (Ka,r): 33.4 mGy. Technique: Informed written consent was obtained. Discussion of risks, benefits, and alternatives were made with the patient. The patient exp ressed understanding and agreed to proceed. All elements maximal sterile vee ier technique was utilized for this procedure, including utilization of steril e scrub solution for skin prep, a large sterile sheet to cover the areas of th e patient that were not prepped, and hand hygiene, mask, head covering, and sterile gown for performing radiologist and scrub technologist. The skin w as anesthetized with 2% lidocaine.Ultrasound evaluation showed a patent and co mpressible left internal jugular vein vein, which was punctured under direct r eal-time ultrasound guidance with a micropuncture needle. An ultrasound image was saved to PACS. A 0.018 inch wire was placed through the needle into the IVC. A 6 Macedonian peel-away sheath was placed. A subcutaneous tunnel was created in the left anterior chest wall by blunt dissection. A 6 Macedonian dual- lumen tunneled central line was brought through the tunnel and the catheter wa s advanced through the sheath, with its distal tip terminating at the cavoatri al junction. The peel-away sheath was removed. The ports were flushed and asp irated easily following placement. The catheter was sutured to the skin with 2-0 silk to secure its placement. The small jugular incision site was closed using resorbable suture. Next, the right chest was prepped and draped in sterile fashion. The indwelling tunneled dialysis catheter was removed with g entle traction and blunt dissection. Hemostasis was achieved with manual compr ession. A sterile dressing was applied. Vital signs were monitored thr oughout the procedure by a nurse, and remained stable. The patient tolerated the procedure well and left the department in the same condition Impression: Successful, uncomplicated placement of a left internal jugular tunneled central line using sonographic and fluoroscopic guidance. Successful, unc omplicated right internal jugular tunneled dialysis catheter removal. Sig sina by: Dr. Gen Anthony MD on 06/02/2019 3:52 PM Dictated By: GEN Swan MD 51 Transcribed By : TIFFANY on 06/02/191551 COPY TO: FAIZA DOWNEY Prothrombin Ngmi3149-85-10 12:37:00* Test Item Value Reference Range Interpretation Comments Prothrombin Time (test code = 5902-2) 15.4 11.9-14.5 H [facility] HospitalProthromb Time International Ratio 2019-06-02 12:37:00* Test Item Value Reference Range Interpretation Comments Prothromb Time International Ratio (test code = 6301-6) 1.15 Oral Anticoagulant Therapy INR Values:1. Low Intensity Therapy 1.5 - 2.02 . Moderate Intensity Therapy 2.0 - 3.03. High Intensity Therapy(1) 2.5 - 3. 54. High Intensity Therapy(2) 3.0 - 4.05. Panic Value INR > 5.0 [facility] HospitalProthrombin Kjrk7554-88-68 12:37:00* Test Item Value Reference Range Interpretation Comments Prothrombin Time (test code = 5902-2) 15.4 11.9-14.5 H [facility] HospitalProthromb Time International Ratio 2019-06-02 12:37:00* Test Item Value Reference Range Interpretation Comments Prothromb Time International Ratio (test code = 6301-6) 1.15 Oral Anticoagulant Therapy INR Values:1. Low Intensity Therapy 1.5 - 2.02 . Moderate Intensity Therapy 2.0 - 3.03. High Intensity Therapy(1) 2.5 - 3. 54. High Intensity Therapy(2) 3.0 - 4.05. Panic Value INR > 5.0 [facility] HospitalProthrombin time (PT) in platelet poor plasma by coagulation yzzzh0544-75-12 12:20:00* Test Item Value Reference Range Interpretation Comments Prothrombin Time (test code = 5902-2) 15.4 11.9-14.5 [facility] HospitalINR in Platelet poor plasma by Coagulation nsbyq3692-43-00 12:20:00* Test Item Value Reference Range Interpretation Comments Prothromb Time International Ratio (test code = 6301-6) 1.15 Oral Anticoagulant Therapy INR Values:1. Low Intensity Therapy 1.5 - 2.02 . Moderate Intensity Therapy 2.0 - 3.03. High Intensity Therapy(1) 2.5 - 3. 54. High Intensity Therapy(2) 3.0 - 4.05. Panic Value INR > 5.0 [facility] HospitalHepatitis B Surface Jlppmfe4052-98-50 08:56:00* Test Item Value Reference Range Interpretation Comments Hepatitis B Surface Antigen (test code = 5196-1) Negative Negat stuart Performed at: [facility] Lab[address] [id number] Director: Doc Bartlett MD, Phone: [phone] Memorial HospitalHeparadise valley hospital B Surface Zxkmdrm4500-16-87 08:56:00* Test Item Value Reference Range Interpretation Comments Hepatitis B Surface Antigen (test code = 5196-1) Negative Negat stuart Performed at: - [facility] [id number] Director: Doc Bartlett MD, Phone: [phone] Memorial HospitalBlood Qttjmtd9044-27-82 01:59:00* Test Item Value Reference Range Interpretation Comments Blood Culture (test code = 95335963) NO GROWTH AFTER 72 HOURS [facility] Hospitalerum or plasma hepatitis B virus surface antigen detection by wauzcebhbwk2551-81-58 14:15:00* Test Item Value Reference Range Interpretation Comments Hepatitis B Surface Antigen (test code = 5196-1) Negative Negat stuart Performed at: - [facility] [id number] Director: Doc Bartlett MD, Phone: [phone] Memorial Hospitalodium Hwogz8417-22-53 07:00:00* Test Item Value Reference Range Interpretation Comments Sodium Level (test code = 2951-2) 136 136-145 [facility] HospitalPotassium Vslet0050-08-66 07:00:00* Test Item Value Reference Range Interpretation Comments Potassium Level (test code = 2823-3) 5.2 3.5-5.1 H [facility] HospitalChloride Sognj1208-64-84 07:00:00* Test Item Value Reference Range Interpretation Comments Chloride Level (test code = 2075-0) 109 98-107 H [facility] HospitalCarbon Dioxide Yanmb8281-06-92 07:00:00* Test Item Value Reference Range Interpretation Comments Carbon Dioxide Level (test code = 2028-9) 20 22-29 L [facility] HospitalAnion Lxs7890-21-10 07:00:00* Test Item Value Reference Range Interpretation Comments Anion Gap (test code = 84984-5) 12.2 8-16 [facility] HospitalBlood Urea Imrrdcqn0899-28-92 07:00:00* Test Item Value Reference Range Interpretation Comments Blood Urea Nitrogen (test code = 3094-0) 59 7-26 H [facility] HospitalCreatinine2020-04-08 07:00:00* Test Item Value Reference Range Interpretation Comments Creatinine (test code = 2160-0) 5.91 0.72-1.25 H [facility] HospitalBUN/Creatinine Rnycd5670-97-35 07:00:00* Test Item Value Reference Range Interpretation Comments BUN/Creatinine Ratio (test code = 3097-3) 10 6-25 [facility] HospitalEstimat Glomerular Filtration Rate 2019-06-01 07:00:00* Test Item Value Reference Range Interpretation Comments Estimat Glomerular Filtration Rate (test code = 935952685) 11 >60 L Ranges were taken from the National Kidney Disease Education Program and the [facility] Kidney Foundation literature.Reference ranges:60 or greater: Kofgxz87-30 ( for 3 consecutive months): Chronic kidney disease 15 or less: Kidney failureGonzales Memorial HospitalGlucose Xspsb0562-09-43 07:00:00* Test Item Value Reference Range Interpretation Comments Glucose Level (test code = TGT8476) 130 74-118 H [facility] HospitalCalcium Bcnti2610-74-37 07:00:00* Test Item Value Reference Range Interpretation Comments Calcium Level (test code = 51546-1) 7.2 8.4-10.2 L [facility] HospitalPhosphorus Jkuue0632-34-24 07:00:00* Test Item Value Reference Range Interpretation Comments Phosphorus Level (test code = ENJ5298) 5.1 2.3-4.7 H [facility] HospitalMagnesium Wetut6400-71-41 07:00:00* Test Item Value Reference Range Interpretation Comments Magnesium Level (test code = 52469-9) 1.7 1.3-2.1 [facility] HospitalPhosphorus Jiqja3487-72-99 07:00:00* Test Item Value Reference Range Interpretation Comments Phosphorus Level (test code = YHY5459) 5.1 2.3-4.7 H [facility] HospitalMagnesium Nysuh1423-63-38 07:00:00* Test Item Value Reference Range Interpretation Comments Magnesium Level (test code = 27998-4) 1.7 1.3-2.1 [facility] HospitalWhite Blood Knrkf0952-34-64 06:30:00* Test Item Value Reference Range Interpretation Comments White Blood Count (test code = 6690-2) 3.49 4.8-10.8 L [facility] HospitalRed Blood Feros2156-75-28 06:30:00* Test Item Value Reference Range Interpretation Comments Red Blood Count (test code = 789-8) 3.62 4.3-5.7 L [facility] HospitalHemoglobin2020-04-08 06:30:00* Test Item Value Reference Range Interpretation Comments Hemoglobin (test code = 55835-6) 9.3 14.0-18.0 L [facility] HospitalHematocrit2020-04-08 06:30:00* Test Item Value Reference Range Interpretation Comments Hematocrit (test code = 4544-3) 29.9 38.2-49.6 L [facility] HospitalMean Corpuscular Crrzqt9422-12-02 06:30:00* Test Item Value Reference Range Interpretation Comments Mean Corpuscular Volume (test code = 787-2) 82.6 81-99 [facility] HospitalMean Corpuscular Mmqdymaivp0825-03-57 06:30:00* Test Item Value Reference Range Interpretation Comments Mean Corpuscular Hemoglobin (test code = 785-6) 25.7 28-32 L [facility] HospitalMean Corpuscular Hemoglobin Concent 2019-06-01 06:30:00* Test Item Value Reference Range Interpretation Comments Mean Corpuscular Hemoglobin Concent (test code = 786-4) 31.1 31-35 [facility] HospitalRed Cell Distribution Gvall2978-73-20 06:30:00* Test Item Value Reference Range Interpretation Comments Red Cell Distribution Width (test code = 11962-5) 15.4 11.7 -14.4 H [facility] HospitalPlatelet Wipwo1016-72-66 06:30:00* Test Item Value Reference Range Interpretation Comments Platelet Count (test code = 777-3) 118 140-360 L [facility] HospitalNeutrophils (%) (Auto)2019-06-01 06:30:00 * Test Item Value Reference Range Interpretation Comments Neutrophils (%) (Auto) (test code = 91477-7) 70.7 38.7-80.0 [facility] HospitalLymphocytes (%) (Auto)2019-06-01 06:30:00 * Test Item Value Reference Range Interpretation Comments Lymphocytes (%) (Auto) (test code = 736-9) 14.6 18.0-39.1 L [facility] HospitalMonocytes (%) (Auto)2019-06-01 06:30:00* Test Item Value Reference Range Interpretation Comments Monocytes (%) (Auto) (test code = 5905-5) 8.9 4.4-11.3 [facility] HospitalEosinophils (%) (Auto)2019-06-01 06:30:00 * Test Item Value Reference Range Interpretation Comments Eosinophils (%) (Auto) (test code = 713-8) 4.0 0.0-6.0 [facility] HospitalBasophils (%) (Auto)2019-06-01 06:30:00* Test Item Value Reference Range Interpretation Comments Basophils (%) (Auto) (test code = 706-2) 0.9 0.0-1.0 [facility] HospitalIM GRANULOCYTES %2019-06-01 06:30:00* Test Item Value Reference Range Interpretation Comments IM GRANULOCYTES % (test code = IM GRANULOCYTES %) 0.9 0.0- 1.0 [facility] HospitalNeutrophils # (Auto)2019-06-01 06:30:00* Test Item Value Reference Range Interpretation Comments Neutrophils # (Auto) (test code = 751-8) 2.5 2.1-6.9 [facility] HospitalLymphocytes # (Auto)2019-06-01 06:30:00* Test Item Value Reference Range Interpretation Comments Lymphocytes # (Auto) (test code = 36258-8) 0.5 1.0-3.2 L [facility] HospitalMonocytes # (Auto)2019-06-01 06:30:00* Test Item Value Reference Range Interpretation Comments Monocytes # (Auto) (test code = 742-7) 0.3 0.2-0.8 [facility] HospitalEosinophils # (Auto)2019-06-01 06:30:00* Test Item Value Reference Range Interpretation Comments Eosinophils # (Auto) (test code = 711-2) 0.1 0.0-0.4 [facility] HospitalBasophils # (Auto)2019-06-01 06:30:00* Test Item Value Reference Range Interpretation Comments Basophils # (Auto) (test code = 704-7) 0.0 0.0-0.1 [facility] HospitalAbsolute Immature Granulocyte (auto 2019-06-01 06:30:00* Test Item Value Reference Range Interpretation Comments Absolute Immature Granulocyte (auto (shin t code = Absolute Immature Granulocyte (auto) 0.03 0-0.1 [facility] HospitalPhosphorus qhlftypuilz1882-96-71 06:00:00 * Test Item Value Reference Range Interpretation Comments Phosphorus Level (test code = OXF7731) 5.1 2.3-4.7 [facility] HospitalTotal Adwepgook2885-91-63 07:19:00* Test Item Value Reference Range Interpretation Comments Total Bilirubin (test code = 1975-2) 0.5 0.2-1.2 [facility] HospitalAspartate Amino Transf (AST/SGOT) 2019-05-31 07:19:00* Test Item Value Reference Range Interpretation Comments Aspartate Amino Transf (AST/SGOT) (test code = Aspartate Amino Transf (AST/SGOT)) 182 5-34 H [facility] HospitalAlanine Aminotransferase (ALT/SGPT) 2019-05-31 07:19:00* Test Item Value Reference Range Interpretation Comments Alanine Aminotransferase (ALT/SGPT) (test code = 1742-6) 121 0-55 H [facility] HospitalTotal Tedklmv9550-10-47 07:19:00* Test Item Value Reference Range Interpretation Comments Total Protein (test code = 2885-2) 7.2 6.5-8.1 [facility] HospitalAlbumin2020-04-07 07:19:00* Test Item Value Reference Range Interpretation Comments Albumin (test code = 1751-7) 2.3 3.5-5.0 L [facility] HospitalGlobulin2020-04-07 07:19:00* Test Item Value Reference Range Interpretation Comments Globulin (test code = 52271-7) 4.9 2.3-3.5 H [facility] HospitalAlbumin/Globulin Intyp3009-93-60 07:19:00 * Test Item Value Reference Range Interpretation Comments Albumin/Globulin Ratio (test code = 1759-0) 0.5 0.8-2.0 L [facility] HospitalAlkaline Nitdziwxqcr6404-73-77 07:19:00* Test Item Value Reference Range Interpretation Comments Alkaline Phosphatase (test code = 6768-6) 412 40-150 H [facility] HospitalUrine WNM1106-35-71 02:21:00* Test Item Value Reference Range Interpretation Comments Urine WBC (test code = 5821-4) >50 0-5 H [facility] HospitalUrine CTV8446-65-59 02:21:00* Test Item Value Reference Range Interpretation Comments Urine RBC (test code = 58218-3) 21-50 0-5 H [facility] HospitalUrine Vtjqwdkg2822-62-43 02:21:00* Test Item Value Reference Range Interpretation Comments Urine Bacteria (test code = 10341-0) MANY NONE H [facility] HospitalUrine Epithelial Uwfdh5784-06-19 02:21:00 * Test Item Value Reference Range Interpretation Comments Urine Epithelial Cells (test code = 37234-9) FEW NONE [facility] HospitalUrine Qnmai8903-57-71 02:21:00* Test Item Value Reference Range Interpretation Comments Urine Mucus (test code = 8247-9) FEW RARE H [facility] HospitalUrine Maatj6418-83-86 02:21:00* Test Item Value Reference Range Interpretation Comments Urine Yeast (test code = 34483-8) MANY NONE H [facility] HospitalUrine Anwpb5542-00-81 02:21:00* Test Item Value Reference Range Interpretation Comments Urine Mucus (test code = 8247-9) FEW RARE H [facility] Blqag6312-84-58 02:21:00* Test Item Value Reference Range Interpretation Comments Urine Yeast (test code = 93568-7) MANY NONE H [facility] HospitalUrine Lkhox9590-14-26 02:12:00* Test Item Value Reference Range Interpretation Comments Urine Color (test code = 5778-6) YELLOW YELLOW [facility] HospitalUrine Qmukons1314-87-94 02:12:00* Test Item Value Reference Range Interpretation Comments Urine Clarity (test code = 28496-2) CLOUDY CLEAR [facility] Specific Fkstxxm9608-52-49 02:12:00 * Test Item Value Reference Range Interpretation Comments Urine Specific [place] (test code = 5811-5) 1.025 1.010-1.02 5 [facility] pO6273-90-10 02:12:00* Test Item Value Reference Range Interpretation Comments Urine pH (test code = 72085-6) 5.5 5-7 [facility] Leukocyte Rbokdvcs2606-30-45 02:12:00* Test Item Value Reference Range Interpretation Comments Urine Leukocyte Esterase (test code = 5799-2) 2+ NEGATIVE [facility] Rtowxju4589-24-98 02:12:00* Test Item Value Reference Range Interpretation Comments Urine Nitrite (test code = 47013-8) POSITIVE NEGATIVE [facility] Qkepvtp9085-25-77 02:12:00* Test Item Value Reference Range Interpretation Comments Urine Protein (test code = 5804-0) >=300 NEGATIVE [facility] Glucose (UA)2019-05-30 02:12:00* Test Item Value Reference Range Interpretation Comments Urine Glucose (UA) (test code = 2349-9) 1+ NEGATIVE [facility] Avjnbvb2935-83-01 02:12:00* Test Item Value Reference Range Interpretation Comments Urine Ketones (test code = 49156-2) NEGATIVE NEGATIVE [facility] Cykwlqqbuvvb5033-45-86 02:12:00* Test Item Value Reference Range Interpretation Comments Urine Urobilinogen (test code = 21161-3) 0.2 0.2-1 [facility] HospitalUrine Cpadrqzpu1026-35-64 02:12:00* Test Item Value Reference Range Interpretation Comments Urine Bilirubin (test code = 1978-6) NEGATIVE NEGATIVE [facility] HospitalUrine Ifmgt9777-43-67 02:12:00* Test Item Value Reference Range Interpretation Comments Urine Blood (test code = 32480-3) 4+ NEGATIVE H [facility] HospitalYeast detection in urine sediment by light lqnvxpjtpq9619-71-00 01:50:00* Test Item Value Reference Range Interpretation Comments Urine Yeast (test code = 71171-1) MANY NONE [facility] HospitalCHEST SINGLE (PORTABLE)2019-05-30 01:18:00 [facility] [address] [place] [address] Patient Name: MANJIT LUO MR #: [id number] : 1980 Age/Sex: 38/M Req #: [id number] Adm Physician: Ordered by: MARIELLE MARSH MD Report #: [id number] Location: ER Room/Bed: Procedure: [id number] DX/CHEST SINGLE (PORTABLE) Exam Date: 05/30/19 Exam Time: 49 REPORT STATUS: Sign ed EXAMINATION: CHEST SINGLE (PORTABLE) COMPARISON: Chest x-ray 04/23 INDICATION: fever 20190530 0050 Y DISCUSSION: Frontal view of the chest obtained at 0101 hours. HEART AND MEDIASTINUM: T he heart is normal in size. LINES: Dual lumen central venous catheter te rminates at the cavoatrial junction. LUNGS: The lungs are well inflated and clear. No pneumonia or pulmonary edema. PLEURA: No pleural effusion or pneumothorax. BONES AND SOFT TISSUES: No focal osseous lesion. The soft t issues are normal. IMPRESSION: No acute cardiopulmonary disease. Signed by: Dr. Sandy Colmenares MD on 05/30/2019 1:20 AM Dictated By: ANDERSON MD 0 120 Transcribed By: TIFFANY on 05/30/19 0120 COPY TO: BAYRON MARSH MD Lactic Acid Yblwd5790-68-94 01:08:00* Test Item Value Reference Range Interpretation Comments Lactic Acid Level (test code = Lactic Acid Level) 1.0 0.5- 2.0 [facility] HospitalLactic Acid Ebkus9452-17-47 01:08:00* Test Item Value Reference Range Interpretation Comments Lactic Acid Level (test code = Lactic Acid Level) 1.0 0.5- 2.0 [facility] HospitalCT ABDOMEN/PELVIS BG3144-63-64 01:06:00 [place] [address] Patient Name: MANJIT LUO MR #: [id number] : 1980 Age/Sex: 38/M Req #: [id number] Adm Physician: Ordered by: MARIELLE MARSH MD Report #: [id number] Location: ER Room/Bed: Procedure: [id number] CT/CT ABDOMEN/PELVIS WO Exam Date: 05/30/19 Jeff nicole Time: 005 REPORT STATUS: Signed CT Abdomen and Pelvis without contrast INDICATION: Right lower quadrant pain and fever, fever, right lower abd pain 20190530 0050 Y T ECHNIQUE: Thin collimation axial images obtained from the diaphragm to the lev el of the pubic symphysis without nonionic intravenous contrast. Dose redu ction techniques used: Automated exposure control, adjustment of the mAs and/o r kVp according to patient size, standardized low-dose protocol, and/or iterat stuart reconstruction technique. RADIATION DOSE: Total DLP: 512.47 mGy* cm Estimated effective dose: (DLP x 0.015 x size factor) mSv CTDIv ol has been reviewed. It is below the limits set by the Radiation Protocol Com mittee (RPC). COMPARISON: Abdomen x-ray 05/20/2019. CT abdomen/pelvis 019 ABDOMEN FINDINGS: Lung Bases: Lung bases are clear. Dual lumen ce ntral venous catheter terminates in the cavoatrial junction. The heart is norm al in size. Liver: Normal in attenuation without mass. Gallbladder: Ab sent. No ductal dilatation. Pancreas: Diffusely calcified. No ductal dilat ation or mass on this unenhanced examination. Spleen: Measures 14 cm in l ength. No mass. Adrenal Glands: No evidence for mass. Kidneys: Righ t: Atrophic with cortical scarring. Ureteral stent is redemonstrated extendin g into the bladder. No calcification along the course of the stent. No intrare nal calculi. No perinephric inflammation Left: The renal pelvis is patulou s and stable in morphology without joshua hydronephrosis. No evidence of calcul us. No perinephric inflammation. No cortical mass or hydronephrosis Lymp h Nodes: Multiple enlarged right pelvic sidewall and inguinal lymph nodes are increasing in size. For example, an obturator lymph node measures 3.8 x 2.1 cm . An inguinal lymph node measures 1.4 x 2.7 cm. Aorta: Normal in diameter. PELVIS FINDINGS: Bowel: Stomach: Normal. Small Bowel: Normal in caliber with normal wall thickness. Large Bowel: Moderate burden of stool th roughout. Appendix: Normal. Bladder: Collapsed around a suprapubic cathet er. The [place]way are diffusely thickened and stable in appearance. Small amount o f intraluminal air. Ureters: The left ureter is distended throughout its co urse but not particularly dilated. No evidence of calculus. Peritoneal di alysis catheter enters via the right abdominal wall and terminates in the righ t lower quadrant. There is a small amount of surrounding fluid. Bones: Incr eased attenuation consistent with renal osteodystrophy. No focal osseous lesio ns. IMPRESSION: 1. Right ureteral stent in appropriate position. No h ydronephrosis. 2. Patulousness of the left renal pelvis without hydronephr osis. Mild prominence of the left ureter without calculus. Please correlate fo r signs/symptoms of UTI. 4. Diffuse chronic bladder wall thickening of un certain etiology. Appropriate position of suprapubic catheter. 5. Increas ing right pelvic and inguinal lymphadenopathy may be secondary to infection. S table splenomegaly. 6. Chronic pancreatitis. 7. Renal osteodystrophy. Signed by: Dr. Sandy Colmenares MD on 05/30/2019 1:18 AM Dictated By: SANDY COLMENARES MD 7 Transcribed By: TIFFANY on 05/30/19117 COPY TO: KEILY MARSH MD Fluoroscopic procedure less than one hour skqtvhsb7332-46-25 00:23:00* Test Item Value Reference Range Interpretation Comments Lactic Acid Level (test code = Lactic Acid Level) 1.0 0.5- 2.0 [facility] class 1 & 2 qxinhgyi9438-60-57 15:06:51* Test Item Value Reference Range Interpretation Comments Case number (test code = 7654628) [id number] C1Q class 1 & 2 antibody (test code = 9995044) See emilee mckeon below for PDF Lab Report [facility] Xksromk9109-15-59 16:03:00* Test Item Value Reference Range Interpretation Comments Bedside Glucose (test code = 69857-5) 129 70-120 H Meter ID: [id number] [facility] HospitalABDOMEN-1VIEW (KUB) 2019-05-20 11:54:00 [place] [address] Patient Name: MANJIT LUO MR #: [id number] : 1980 Age/Sex: 38/M Req #: [id number] Adm Physician: ABHIJIT YODER MD Ordered by: ABHIJIT YODER MD Report #: [id number] Location: MED/SURG2 Room/Bed: 2101 Procedure: [id number] DX/AB ERIN (KUB) Exam Date: 05/20/19 Exam Time: 105 9 REPORT STATUS: Signed Exam: Abdominal film Clinical History: Nausea, vomiting Comparison: 020 DISCUSSION: Right internal ureteral stent, peritoneal catheter, and sup rapubic bladder catheter are unchanged in position. The bowel gas pattern show s no dilated, air-filled loops of bowel. Gas and fecal material are noted th roughout. Dystrophic pancreatic head and uncinate process calcifications uncha nged. Regional skeletal structures are intact. IMPRESSION: Stable supp ort lines and tubes. Nonobstructive bowel gas pattern. Signed by: Dr. Kim Reynolds M.D. on 05/20/2019 11:57 AM Dictated By: KIM MENDEZ MD 9928 Transcribe d By: TIFFANY on 05/20/19 7889 COPY TO: ABHIJIT YODER MD Sodium Qzgje8828-30-12 05:37:00* Test Item Value Reference Range Interpretation Comments Sodium Level (test code = 2951-2) 137 136-145 [facility] HospitalPotassium Ylzwx5526-26-75 05:37:00* Test Item Value Reference Range Interpretation Comments Potassium Level (test code = 2823-3) 4.7 3.5-5.1 [facility] HospitalChloride Nxqjb9199-53-72 05:37:00* Test Item Value Reference Range Interpretation Comments Chloride Level (test code = 2075-0) 103 98-107 [facility] HospitalCarbon Dioxide Shnhm2122-01-13 05:37:00* Test Item Value Reference Range Interpretation Comments Carbon Dioxide Level (test code = 2028-9) 27 22-29 [facility] HospitalAnion Clp5403-08-86 05:37:00* Test Item Value Reference Range Interpretation Comments Anion Gap (test code = 72376-5) 11.7 8-16 [facility] HospitalBlood Urea Cazcdexm4111-38-40 05:37:00* Test Item Value Reference Range Interpretation Comments Blood Urea Nitrogen (test code = 3094-0) 23 7- [facility] HospitalCreatinine2020-03-26 05:37:00* Test Item Value Reference Range Interpretation Comments Creatinine (test code = 2160-0) 3.50 0.72-1.25 H [facility] HospitalBUN/Creatinine Ofjso5686-45-05 05:37:00* Test Item Value Reference Range Interpretation Comments BUN/Creatinine Ratio (test code = 3097-3) 7 08-17 [facility] HospitalEstimat Glomerular Filtration Rate 2019-05-19 05:37:00* Test Item Value Reference Range Interpretation Comments Estimat Glomerular Filtration Rate (test code = 485823927) 20 >60 L Ranges were taken from the National Kidney Disease Education Program and the [facility] Foundation literature.Reference ranges:60 or greater: Pvchjs08-94 ( for 3 consecutive months): Chronic kidney disease 15 or less: Kidney failureGonzales Memorial HospitalGlucose Qglns3995-83-26 05:37:00* Test Item Value Reference Range Interpretation Comments Glucose Level (test code = RGF2368) 130 74-118 H [facility] HospitalCalcium Oawhy0902-34-75 05:37:00* Test Item Value Reference Range Interpretation Comments Calcium Level (test code = 76015-3) 8.2 8.4-10.2 L [facility] HospitalWhite Blood Oqlnq3375-52-94 09:35:00* Test Item Value Reference Range Interpretation Comments White Blood Count (test code = 6690-2) 4.21 4.8-10.8 L [facility] HospitalRed Blood Xnamc5865-83-70 09:35:00* Test Item Value Reference Range Interpretation Comments Red Blood Count (test code = 789-8) 3.61 4.3-5.7 L [facility] HospitalHemoglobin2020-03-25 09:35:00* Test Item Value Reference Range Interpretation Comments Hemoglobin (test code = 75765-9) 9.3 14.0-18.0 L [facility] HospitalHematocrit2020-03-25 09:35:00* Test Item Value Reference Range Interpretation Comments Hematocrit (test code = 4544-3) 30.1 38.2-49.6 L [facility] HospitalMean Corpuscular Nmoxbi2442-51-15 09:35:00* Test Item Value Reference Range Interpretation Comments Mean Corpuscular Volume (test code = 787-2) 83.4 81-99 [facility] HospitalMean Corpuscular Qvgeukgtbl1497-75-33 09:35:00* Test Item Value Reference Range Interpretation Comments Mean Corpuscular Hemoglobin (test code = 785-6) 25.8 28-32 L [facility] HospitalMean Corpuscular Hemoglobin Concent 2019-05-18 09:35:00* Test Item Value Reference Range Interpretation Comments Mean Corpuscular Hemoglobin Concent (test code = 786-4) 30.9 31-35 L [facility] HospitalRed Cell Distribution Dlapy2450-55-20 09:35:00* Test Item Value Reference Range Interpretation Comments Red Cell Distribution Width (test code = 56417-6) 14.6 11.7 -14.4 H [facility] HospitalPlatelet Vymxm4674-45-48 09:35:00* Test Item Value Reference Range Interpretation Comments Platelet Count (test code = 777-3) 133 140-360 L [facility] HospitalNeutrophils (%) (Auto)2019-05-18 09:35:00 * Test Item Value Reference Range Interpretation Comments Neutrophils (%) (Auto) (test code = 27719-6) 59.3 38.7-80.0 [facility] HospitalLymphocytes (%) (Auto)2019-05-18 09:35:00 * Test Item Value Reference Range Interpretation Comments Lymphocytes (%) (Auto) (test code = 736-9) 29.5 18.0-39.1 [facility] HospitalMonocytes (%) (Auto)2019-05-18 09:35:00* Test Item Value Reference Range Interpretation Comments Monocytes (%) (Auto) (test code = 5905-5) 5.7 4.4-11.3 [facility] HospitalEosinophils (%) (Auto)2019-05-18 09:35:00 * Test Item Value Reference Range Interpretation Comments Eosinophils (%) (Auto) (test code = 713-8) 4.5 0.0-6.0 [facility] HospitalBasophils (%) (Auto)2019-05-18 09:35:00* Test Item Value Reference Range Interpretation Comments Basophils (%) (Auto) (test code = 706-2) 0.5 0.0-1.0 [facility] HospitalIM GRANULOCYTES %2019-05-18 09:35:00* Test Item Value Reference Range Interpretation Comments IM GRANULOCYTES % (test code = IM GRANULOCYTES %) 0.5 0.0- 1.0 [facility] HospitalNeutrophils # (Auto)2019-05-18 09:35:00* Test Item Value Reference Range Interpretation Comments Neutrophils # (Auto) (test code = 751-8) 2.5 2.1-6.9 [facility] HospitalLymphocytes # (Auto)2019-05-18 09:35:00* Test Item Value Reference Range Interpretation Comments Lymphocytes # (Auto) (test code = 57662-6) 1.2 1.0-3.2 [facility] HospitalMonocytes # (Auto)2019-05-18 09:35:00* Test Item Value Reference Range Interpretation Comments Monocytes # (Auto) (test code = 742-7) 0.2 0.2-0.8 [facility] HospitalEosinophils # (Auto)2019-05-18 09:35:00* Test Item Value Reference Range Interpretation Comments Eosinophils # (Auto) (test code = 711-2) 0.2 0.0-0.4 [facility] HospitalBasophils # (Auto)2019-05-18 09:35:00* Test Item Value Reference Range Interpretation Comments Basophils # (Auto) (test code = 704-7) 0.0 0.0-0.1 [facility] HospitalAbsolute Immature Granulocyte (auto 2019-05-18 09:35:00* Test Item Value Reference Range Interpretation Comments Absolute Immature Granulocyte (auto (shin t code = Absolute Immature Granulocyte (auto) 0.02 0-0.1 [facility] Hospitalingle antigen pxmsy3333-64-97 09:20:50* Test Item Value Reference Range Interpretation Comments SAB interpretation (test code = 5950) Additional antib tripp information: DP1=DPB1*01:01/DPA1*02:48WB2=FFW2*05:01/DPA1*02:04GZ0=MEF3*03:03/DQA1*02:01DR53= is a self-antigen SAB serum ID (test code = 5866) [id number] SAB serum collection D&T (test code = 5867) 05/03/2019 08:30 AM SAB class I antibody assignment (test code = 5870) Negative SAB cPRA class I (test code = 5868) 0 SAB class II antibody assignment (test code = 5871) DP1,DR10 ,DP5,DR53,DR51,DQ9 SAB cPRA class II (test code = 5869) 74 Case number (test code = 5949665) [id number] Single antigen beads (test code = 4604) See link below for PDF Lab Report Alejandro AriasErik Fubuird5716-06-47 08:02:00* Test Item Value Reference Range Interpretation Comments Urine Culture (test code = 630-4) No Result Data Provided [facility] HospitalUrine Gjtceok7085-31-75 08:02:00* Test Item Value Reference Range Interpretation Comments Urine Culture (test code = 630-4) No Result Data Provided [facility] HospitalUrine Tabwygu1268-22-24 08:02:00* Test Item Value Reference Range Interpretation Comments Urine Culture (test code = 630-4) No Result Data Provided [facility] HospitalABDOMEN-1VIEW (KUB)2019-05-16 13:43:00 [place] [address] Patient Name: MANJIT LUO MR #: [id number] : 1980 Age/Sex: 38/M Req #: [id number] Adm Physician: ABHIJIT YODER MD Ordered by: FAIZA DOWNEY Report #: [id number] Location: MED/SURG2 Room/Bed: [facility] Procedure: [id number] DX/ABDOMEN-1VIEW (KU) Exam Date: 05/16/19 Exam Cm e: 1325 REPORT STATUS: Signed Ab dominal radiograph Clinical indications: Nausea vomiting Comparison: 2018 Impression: The bowel gas pattern is nonobstructive. Right ureteral double J stent is in place. A peritoneal dialysis catheter is in place. No ev idence of free intraperitoneal air. Signed by: Ronnie Guallpa MD on 1:45 PM Dictated By: RONNIE GUALLPA MD 1345 Transcribed By: TIFFANY on 05/16/19 134 5 COPY TO: FAIZA DOWNEY IR QSFYOID6799-57-90 13:41:00 [place] [address] Patient Name: MANJIT LUO MR #: [id number] : 1980 Age/Sex: 38/M Req #: [id number] Adm Physician: ABHIJIT YODER MD Ordered by: FAIZA DOWNEY Report #: [id number] Location: MED/SURG2 Room/Bed: [facility] Procedure: [id number] DX/IR CONSULT Exam Date: Exam Time: REPORT STATUS: Signed Tunneled dialysis alonso ter insertion, 05/16/2019. History: Renal failure. Modality: Sonography and fluoroscopy. Sedation: Genny sed 1.0 mg and fentanyl 50 mcg was given intravenously for conscious sedation. Vital signs were monitored throughout the procedure by a nurse, and remained stable. Physician intra-service time was 15 its. Warehouse Logistics Coordinator: Saloni. Ornamental Ironworker: None. Approach: Right internal jugular vein Estimated blood loss: < 5 cc. Specimen: None. Fluoroscopy Time: 0 point min. Dose (Ka,r): 0.26 mGy. Technique: Informed written consent was obtained. Discussion of risks, benefits, and alternatives were made with the patient. The patient expressed understanding and agreed to proceed. All elements maximal sterile barrier technique was utilized for this procedure, including utilization of sterile scrub solution for skin prep, a large sterile sheet to cover the areas of the patient that were not prepped, and hand hygiene, mask, head covering, and sterile gown for performing radiologist and scrub technologist. The skin was anesthetized with 2% lidocaine.Ultrasound evaluation showed a patent and compressible right internal jugular vein, which was punctured under direct real-time ultrasound guidance with a micropuncture needle. An ultrasound image was saved to PACS. A 0.018 inch wire was placed through the needle into the right atrium. A 4 Macedonian micropuncture sheath was placed. A subcutaneous tunnel was created in the right anterior chest wall by blunt dissection. A 19 cm 14.5 Macedonian dialysis catheter was brought through the tunnel. The vessel tract was serially dilated over a J-wire. A peel-away sheath was placed in the right IJ vein and the catheter was advanced through the sheath, with its distal tip terminating in the right atrium. The peel-away sheath was removed. The ports were flushed and aspirated easily following placement. The catheter was sutured to the skin with 2-0 silk to secure its placement. The small jugular incision site was closed using resorbable suture. Vital signs were monitored throughout the procedure by a nurse, and remained stable. The patient tolerated the procedure well and left the department in the same condition. Results: Spot radiograph of the chest demonstrates the new dialysis catheter to lie in the expected position with its tip overlying the superior right atrium. Impression: Successful, uncomplicated placement of a right internal jugular tunneled dialysis catheter using sonographic and fluoroscopic guidance and conscious sedation. Signed by: Ronnie Guallpa MD on 05/16/2019 1:43 PM Dictated By: RONNIE VERDE MD 1343 Transcr ibed By: TIFFANY on 05/16/19 1343 COPY TO: FAIZA DOWNEY US GUIDANCE FOR VASCULAR KTFNF1917-67-04 13:41:00 [place] [address] Patient Name: MANJIT LUO MR #: [id number] : 1980 Age/Sex: 38/M Req #: [id number] Adm Physician: ABHIJIT YODER MD Ordered by: FAIZA DOWNEY Report #: [id number] Location: [facility] Room/Bed: [facility] Procedure: [id number] US/US GUIDANCE FOR VASCULAR ACCES Exam Date: 05/16/19 Exam Time: 1225 REPORT STATUS: S igned Tunneled dialysis catheter insertion, 05/16/2019. History: Renal failure. Modality: Sonography and fluoroscopy. Sedation: Versed 1.0 mg and fentanyl 50 mcg was given intravenously for conscious sedation. Vital signs were monitored throughout the procedure by a nurse, and remained stable. Physician intra-service time was 15 its. Warehouse Logistics Coordinator: Saloni. Ornamental Ironworker: None. Approach: Right internal jugular vein Estimated blood loss: < 5 cc. Specimen: None. Fluoroscopy Time: 0 point min. Dose (Ka,r): 0.26 mGy. Technique: Informed written consent was obtained. Discussion of risks, benefits, and alternatives were made with the patient. The patient expressed understanding and agreed to proceed. All elements maximal sterile barrier technique was utilized for this procedure, including utilization of sterile scrub solution for skin prep, a large sterile sheet to cover the areas of the patient that were not prepped, and hand hygiene, mask, head covering, and sterile gown for performing radiologist and scrub technologist. The skin was anesthetized with 2% lidocaine.Ultrasound evaluation showed a patent and c ompressible right internal jugular vein, which was punctured under direct real -time ultrasound guidance with a micropuncture needle. An ultrasound image wa s saved to PACS. A 0.018 inch wire was placed through the needle into t he right atrium. A 4 Macedonian micropuncture sheath was placed. A subcutaneous t unnel was created in the right anterior chest wall by blunt dissection. A 19 cm 14.5 Macedonian dialysis catheter was brought through the tunnel. The vessel tr act was serially dilated over a J-wire. A peel-away sheath was placed in the r ight IJ vein and the catheter was advanced through the sheath, with its distal tip terminating in the right atrium. The peel-away sheath was removed. The p orts were flushed and aspirated easily following placement. The catheter was sutured to the skin with 2-0 silk to secure its placement. The small jugular incision site was closed using resorbable suture. Vital signs were monitored t hroughout the procedure by a nurse, and remained stable. The patient tolerate d the procedure well and left the department in the same condition. Result s: Spot radiograph of the chest demonstrates the new dialysis catheter to lie in the expected position with its tip overlying the superior right atrium. Impression: Successful, uncomp licated placement of a right internal jugular tunneled dialysis catheter using sonographic and fluoroscopic guidance and conscious sedation. Signed by: Ronnie Guallpa MD on 05/16/2019 1:43 PM Dictated By: RONNIE VERDE MD 42 Transcr ibed By: TIFFANY on 05/16/191342 COPY TO: FAIZA DOWNEY TUNNELLED CVC INSERT W/O ONVY0915-43-46 13:41:00 [place] [address] Patient Name: MANJIT LUO MR #: [id number] : 1980 Age/Sex: 38/M Req #: [id number] Adm Physician: ABHIJIT YODER MD Ordered by: FAIZA DOWNEY Report #: [id number] Location: MED/SURG2 Room/Bed: [facility] Procedure: [id number] IR/TUNNELLED CVC INSERT W/O PORT Exam Date: Exam T sage: REPORT STATUS: Signed Tunn eled dialysis catheter insertion, 05/16/2019. History: Renal failure. Modality: Sonography and fluoroscopy. Sedation: Versed 1.0 mg and fentanyl 50 mcg was given intravenously for conscious sedation. Vital signs were monitored throughout the procedure by a nurse, and remained stable. Physician intra-service time was 15 its. Warehouse Logistics Coordinator: Saloni. Ornamental Ironworker: None. Approach: Right internal jugular vein Estimated blood loss: < 5 cc. Specimen: None. Fluoroscopy Time: 0 point min. Dose (Ka,r): 0.26 mGy. Technique: Informed written consent was obtained. Discussion of risks, benefits, and alternatives were made with the patient. The patient expressed understanding and agreed to proceed. All elements maximal sterile barrier technique was utilized for this procedure, including utilization of sterile scrub solution for skin prep, a large sterile sheet to cover the areas of the patient that were not prepped, and hand hygiene, mask, head covering, and sterile gown for performing radiologist and scrub technologist. The skin was anesthetized with 2% lidocaine.Ultrasound evaluation showed a patent and c ompressible right internal jugular vein, which was punctured under direct real -time ultrasound guidance with a micropuncture needle. An ultrasound image wa s saved to PACS. A 0.018 inch wire was placed through the needle into t he right atrium. A 4 Macedonian micropuncture sheath was placed. A subcutaneous t unnel was created in the right anterior chest wall by blunt dissection. A 19 cm 14.5 Macedonian dialysis catheter was brought through the tunnel. The vessel tr act was serially dilated over a J-wire. A peel-away sheath was placed in the r ight IJ vein and the catheter was advanced through the sheath, with its distal tip terminating in the right atrium. The peel-away sheath was removed. The p orts were flushed and aspirated easily following placement. The catheter was sutured to the skin with 2-0 silk to secure its placement. The small jugular incision site was closed using resorbable suture. Vital signs were monitored t hroughout the procedure by a nurse, and remained stable. The patient tolerate d the procedure well and left the department in the same condition. Result s: Spot radiograph of the chest demonstrates the new dialysis catheter to lie in the expected position with its tip overlying the superior right atrium. Impression: Successful, uncomp licated placement of a right internal jugular tunneled dialysis catheter using sonographic and fluoroscopic guidance and conscious sedation. Signed by: Ronnie Guallpa MD on 05/16/2019 1:43 PM Dictated By: RONNIE VERDE MD 1343 Transcr ibed By: TIFFANY on 05/16/19 1343 COPY TO: FAIZA DOWNEY Prothrombin Muvq7913-53-54 10:37:00* Test Item Value Reference Range Interpretation Comments Prothrombin Time (test code = 5902-2) 16.2 11.9-14.5 H [facility] HospitalProthromb Time International Ratio 2019-05-16 10:37:00* Test Item Value Reference Range Interpretation Comments Prothromb Time International Ratio (test code = 6301-6) 1.22 Oral Anticoagulant Therapy INR Values:1. Low Intensity Therapy 1.5 - 2.02 . Moderate Intensity Therapy 2.0 - 3.03. High Intensity Therapy(1) 2.5 - 3. 54. High Intensity Therapy(2) 3.0 - 4.05. Panic Value INR > 5.0 [facility] Vzyuejqeq9868-62-85 08:57:00* Test Item Value Reference Range Interpretation Comments Total Bilirubin (test code = 1975-2) 0.2 0.2-1.2 [facility] Qcygvxqhl8370-32-21 08:57:00* Test Item Value Reference Range Interpretation Comments Direct Bilirubin (test code = 91498-4) 0.1 0.0-0.5 [facility] HospitalAspartate Amino Transf (AST/SGOT) 2019-05-16 08:57:00* Test Item Value Reference Range Interpretation Comments Aspartate Amino Transf (AST/SGOT) (test code = Aspartate Amino Transf (AST/SGOT)) 40 5-34 H [facility] HospitalAlanine Aminotransferase (ALT/SGPT) 2019-05-16 08:57:00* Test Item Value Reference Range Interpretation Comments Alanine Aminotransferase (ALT/SGPT) (test code = 1742-6) 47 0-55 [facility] Xvwknzh5371-75-26 08:57:00* Test Item Value Reference Range Interpretation Comments Total Protein (test code = 2885-2) 8.5 6.5-8.1 H [facility] HospitalAlbumin2020-03-23 08:57:00* Test Item Value Reference Range Interpretation Comments Albumin (test code = 1751-7) 2.5 3.5-5.0 L [facility] HospitalAlkaline Burojsladuj2748-02-00 08:57:00* Test Item Value Reference Range Interpretation Comments Alkaline Phosphatase (test code = 6768-6) 437 40-150 [facility]rect Jnqhjqtlb3351-64-57 08:57:00* Test Item Value Reference Range Interpretation Comments Direct Bilirubin (test code = 31572-4) 0.1 0.0-0.5 [facility] Ypoqbvdry7358-80-26 08:57:00* Test Item Value Reference Range Interpretation Comments Direct Bilirubin (test code = 74730-7) 0.1 0.0-0.5 [facility] Hospitalerum or plasma conjugated bilirubin measurement (mass/volume)2019-05-16 05:00:00* Test Item Value Reference Range Interpretation Comments Direct Bilirubin (test code = 78245-3) 0.1 0.0-0.5 [facility] HospitalMiscellaneous referral dybu5009-65-69 12:16:23* Test Item Value Reference Range Interpretation Comments [facility] [place] (test code = 2566) PTNT [facility] test result (test code = 1730) SEE NOTE Report Status: FINAL Prothrombin Y00454H Mutation, B PTNT Interpretation This individual DOES NOT have the Prothrombin P04969R mutation. Although the Prothrombin E12087Q mutation is absent, the individual may have other genetic and environmental risk factors for thrombosis. Consider genetic consultation and counseling of potentially affected family members regarding laboratory testing. ADDITIONAL INFORMATION This test is a direct mutation analysis using PCR amplification, signal generation and release by cleavage of sequence specific alleles ([employer], [employer], [place], [place])............... ..............................................Prothrombin S72748H Mutation, B Negative Reference Value: Negative............................................................PTNT Reviewed By DARRYL Oneil - - - - - - - - - - - - - - - - - - - - - - - - - - - - - -Laboratory Notes:This test has been modified from the steel erector apprentice'sinstructions. Its performance characteristics weredetermined by [facility] in a manner consistent with CLIArequirements. This test has not been cleared or approved bythe U.S. Food and Drug Administration.+ +: PERFORMING SITE LEGEND :+ +: : [facility] :: : [address] [place] [address] :+ + IGNACIO (test code = IGNACIO) Prothrombin Q86699J Mutation [facility] Test ID: PTNTSource: Whole Blood [facility] MethodistHepatitis B Surface Antibody, Uojfa2736-60-47 08:00:00* Test Item Value Reference Range Interpretation Comments Hepatitis B Surface Antibody, Quant (test code = 5194-6) <3.1 Immunity>9.9 L Status of Immunity Anti-HBs Level Inconsistent with Immunity 0.0 - 9.9Consistent with Immunity >9.9[facility] B Surface Noocioj0614-69-11 08:00:00* Test Item Value Reference Range Interpretation Comments Hepatitis B Surface Antigen (test code = 5196-1) Negative Negat stuart [facility] B Core IgM Zqbzinjy7414-90-95 08:00:00* Test Item Value Reference Range Interpretation Comments Hepatitis B Core IgM Antibody (test code = 13328-2) Negative Ne gative Performed at: [address] [id number] Director: Doc Bartlett MD, Phone: [phone] Regional Medical Center B Surface Antibody, Rsfng2416-40-62 08:00:00* Test Item Value Reference Range Interpretation Comments Hepatitis B Surface Antibody, Quant (test code = 5194-6) <3.1 Immunity>9.9 L Status of Immunity Anti-HBs Level Inconsistent with Immunity 0.0 - 9.9Consistent with Immunity >9.9[facility] B Core IgM Vipzzpmn3504-29-71 08:00:00* Test Item Value Reference Range Interpretation Comments Hepatitis B Core IgM Antibody (test code = 50186-3) Negative Ne gative Performed at: [address] [id number] Director: Doc Bartlett MD, Phone: [phone] Regional Medical Center B Surface Antibody, Ltikq6879-67-66 08:00:00* Test Item Value Reference Range Interpretation Comments Hepatitis B Surface Antibody, Quant (test code = 5194-6) <3.1 Immunity>9.9 L Status of Immunity Anti-HBs Level Inconsistent with Immunity 0.0 - 9.9Consistent with Immunity >9.9[facility] B Core IgM Cujrzpxr3502-36-14 08:00:00* Test Item Value Reference Range Interpretation Comments Hepatitis B Core IgM Antibody (test code = 00555-6) Negative Ne gative Performed at: - Lab[address] [id number] Director: Doc Bartlett MD, Phone: [phone] Memorial Hospitalerum hepatitis B virus surface antibody assay by radioimmunoassay (units/volume)2019-05-12 17:30:00* Test Item Value Reference Range Interpretation Comments Hepatitis B Surface Antibody, Quant (test code = 5194-6) <3.1 Immunity>9.9 Status of Immunity Anti-HBs Level Inconsistent with Immunity 0.0 - 9.9Consistent with Immunity >9.9[facility] Hospitalerum or plasma hepatitis B virus core IgM antibody detection by qbilmsbngxt9022-64-01 17:30:00* Test Item Value Reference Range Interpretation Comments Hepatitis B Core IgM Antibody (test code = 08212-9) Negative Ne gative Performed at: - [address] [id number] Director: Doc Bartlett MD, Phone: [phone] Memorial HospitalGlobulin2020-03-19 05:45:00* Test Item Value Reference Range Interpretation Comments Globulin (test code = 84136-0) 5.5 2.3-3.5 H [facility] HospitalAlbumin/Globulin Dfxep2669-74-59 05:45:00 * Test Item Value Reference Range Interpretation Comments Albumin/Globulin Ratio (test code = 1759-0) 0.4 0.8-2.0 L [facility] HospitalBlood Ozcenlh2886-41-96 19:22:00* Test Item Value Reference Range Interpretation Comments Blood Culture (test code = 46645904) NO GROWTH AFTER 5 DAYS, FINAL REPORT [facility] HospitalLow resolution full typing by SSO 2019-05-11 10:19:06* Test Item Value Reference Range Interpretation Comments Interpretation (test code = 5073283) Note: HLA typing was performed by PCR-SSO DNA based procedures.Note: The serological phenotype is an interpretation based on molecular typing data. Case number (test code = [id number]) [id number] Low resolution full typing by SSO (test code = 1359) S ee link below for PDF Lab Report Alejandro AmosMakmafgtsRihvptmn1852-16-92 06:07:00* Test Item Value Reference Range Interpretation Comments Ferritin (test code = 2276-4) 313.92 21.81-274.66 H [facility] HospitalFerritin2020-03-18 06:07:00* Test Item Value Reference Range Interpretation Comments Ferritin (test code = 2276-4) 313.92 21.81-274.66 H [facility] HospitalFerritin2020-03-18 06:07:00* Test Item Value Reference Range Interpretation Comments Ferritin (test code = 2276-4) 313.92 21.81-274.66 H [facility] HospitalPhosphorus Cjzlz2829-67-86 05:50:00* Test Item Value Reference Range Interpretation Comments Phosphorus Level (test code = FDQ5783) 6.2 2.3-4.7 H [facility] Rtgbr1173-98-68 05:50:00* Test Item Value Reference Range Interpretation Comments Iron Level (test code = 2498-4) 38 65-175 L [facility] HospitalTotal Iron Binding Akucxroa6231-47-65 05:50:00* Test Item Value Reference Range Interpretation Comments Total Iron Binding Capacity (test code = 2500-7) 165 261-4 78 L [facility] HospitalPercent Iron Axqblzyhjk7455-66-37 05:50:00* Test Item Value Reference Range Interpretation Comments Percent Iron Saturation (test code = 2502-3) 23 15-50 [facility] HospitalTransferrin2020-03-18 05:50:00* Test Item Value Reference Range Interpretation Comments Transferrin (test code = 3034-6) 118 174-364 L [facility] Fzkzk0569-10-40 05:50:00* Test Item Value Reference Range Interpretation Comments Iron Level (test code = 2498-4) 38 65-175 L [facility] HospitalTotal Iron Binding Amavgrqt3754-19-61 05:50:00* Test Item Value Reference Range Interpretation Comments Total Iron Binding Capacity (test code = 2500-7) 165 261-4 78 L [facility] HospitalPercent Iron Fzasdzhftb7371-10-14 05:50:00* Test Item Value Reference Range Interpretation Comments Percent Iron Saturation (test code = 2502-3) 50 [facility] HospitalTransferrin2020-03-18 05:50:00* Test Item Value Reference Range Interpretation Comments Transferrin (test code = 3034-6) 118 174-364 L [facility] HospitalIron Roitr7526-65-89 05:50:00* Test Item Value Reference Range Interpretation Comments Iron Level (test code = 2498-4) 38 65-175 L [facility] HospitalTotal Iron Binding Pwzoanmq0278-96-51 05:50:00* Test Item Value Reference Range Interpretation Comments Total Iron Binding Capacity (test code = 2500-7) 165 261-4 78 L [facility] HospitalPercent Iron Totjfplfpf4346-57-80 05:50:00* Test Item Value Reference Range Interpretation Comments Percent Iron Saturation (test code = 2502-3) [facility] HospitalTransferrin2020-03-18 05:50:00* Test Item Value Reference Range Interpretation Comments Transferrin (test code = 3034-6) 118 174-364 L [facility] Hospitalerum or plasma iron measurement (mass/volume)2019-05-11 04:50:00* Test Item Value Reference Range Interpretation Comments Iron Level (test code = 2498-4) 38 65-175 [facility] Hospitalerum or plasma iron binding capacity measurement (mass/volume)2019-05-11 04:50:00* Test Item Value Reference Range Interpretation Comments Total Iron Binding Capacity (test code = 2500-7) 165 261-4 78 [facility] Hospitalerum or plasma iron saturation measurement (mass fraction)2019-05-11 04:50:00* Test Item Value Reference Range Interpretation Comments Percent Iron Saturation (test code = 2502-3) 50 [facility] Hospitalerum or plasma transferrin measurement (mass/volume)2019-05-11 04:50:00* Test Item Value Reference Range Interpretation Comments Transferrin (test code = 3034-6) 118 174-364 [facility] Hospitalerum or plasma ferritin measurement (mass/volume)2019-05-11 04:50:00* Test Item Value Reference Range Interpretation Comments Ferritin (test code = 2276-4) 313.92 21.81-274.66 [facility] HospitalBacterial urine aileodo6656-08-81 15:50:00* Test Item Value Reference Range Interpretation Comments Urine Culture (test code = 630-4) YEAST SPECIES [facility] HospitalUrine Hkrwvxp2425-05-84 07:34:00* Test Item Value Reference Range Interpretation Comments Urine Culture (test code = 630-4) No Result Data Provided [facility] HospitalHemoglobin A1c Vkvwgaw9157-91-83 20:19:00 * Test Item Value Reference Range Interpretation Comments Hemoglobin A1c Percent (test code = Hemoglobin A1c Percent) 5.2 4.0-7.0 [facility] HospitalHemoglobin A1c Khmwoqw9133-96-30 20:19:00 * Test Item Value Reference Range Interpretation Comments Hemoglobin A1c Percent (test code = Hemoglobin A1c Percent) 5.2 4.0-7.0 [facility] HospitalHemoglobin A1c Pqdpplf6764-52-57 20:19:00 * Test Item Value Reference Range Interpretation Comments Hemoglobin A1c Percent (test code = Hemoglobin A1c Percent) 5.2 4.0-7.0 [facility] HospitalFree Ihjqgtdsn2719-42-10 19:42:00* Test Item Value Reference Range Interpretation Comments Free Thyroxine (test code = 3024-7) 0.79 0.8-1.8 L [facility] HospitalThyroid Stimulating Hormone (TSH) 2019-05-08 19:42:00* Test Item Value Reference Range Interpretation Comments Thyroid Stimulating Hormone (TSH) (test code = 97872-2) 1.669 0.350-4.940 [facility] HospitalFr Itivwlrju9344-64-76 19:42:00* Test Item Value Reference Range Interpretation Comments Free Thyroxine (test code = 3024-7) 0.79 0.8-1.8 L [facility] HospitalThyroid Stimulating Hormone (TSH) 2019-05-08 19:42:00* Test Item Value Reference Range Interpretation Comments Thyroid Stimulating Hormone (TSH) (test code = 27588-4) 1.669 0.350-4.940 [facility] HospitalFree Zlciyndwe3147-30-78 19:42:00* Test Item Value Reference Range Interpretation Comments Free Thyroxine (test code = 3024-7) 0.79 0.8-1.8 L [facility] HospitalThyroid Stimulating Hormone (TSH) 2019-05-08 19:42:00* Test Item Value Reference Range Interpretation Comments Thyroid Stimulating Hormone (TSH) (test code = 48216-0) 1.669 0.350-4.940 [facility] HospitalFluoroscopic procedure less than one hour gerfjkfj6328-76-42 18:10:00* Test Item Value Reference Range Interpretation Comments Hemoglobin A1c Percent (test code = Hemoglobin A1c Percent) 5.2 4.0-7.0 [facility] Hospitalerum or plasma thyroxine (T4) free measurement (mass/volume)2019-05-08 18:10:00* Test Item Value Reference Range Interpretation Comments Free Thyroxine (test code = 3024-7) 0.79 0.8-1.8 [facility] Hospitalerum or plasma thyrotropin measurement by detection limit <= 0.005 miu/l (units/volume)2019-05-08 18:10:00* Test Item Value Reference Range Interpretation Comments Thyroid Stimulating Hormone (TSH) (test code = 31035-4) 1.669 0.350-4.940 [facility] HospitalUrine INJ2337-18-99 20:28:00* Test Item Value Reference Range Interpretation Comments Urine WBC (test code = 5821-4) 11-20 0-5 H [facility] HospitalUrine GNK8154-26-59 20:28:00* Test Item Value Reference Range Interpretation Comments Urine RBC (test code = 60108-0) 6-10 0-5 H [facility] HospitalUrine Edogafln9745-82-64 20:28:00* Test Item Value Reference Range Interpretation Comments Urine Bacteria (test code = 55860-3) MANY NONE H [facility] HospitalUrine Epithelial Uajel5275-90-96 20:28:00 * Test Item Value Reference Range Interpretation Comments Urine Epithelial Cells (test code = 26600-5) RARE NONE [facility] HospitalUrine Jyvjc2712-36-30 20:12:00* Test Item Value Reference Range Interpretation Comments Urine Color (test code = 5778-6) YELLOW YELLOW [facility] HospitalUrine Dmfpzxx2876-17-99 20:12:00* Test Item Value Reference Range Interpretation Comments Urine Clarity (test code = 99793-9) CLOUDY CLEAR H [facility] HospitalUrine Specific Ufxgdfd4592-03-49 20:12:00 * Test Item Value Reference Range Interpretation Comments Urine Specific [place] (test code = 5811-5) 1.020 1.010-1.02 5 [facility] HospitalUrine sN1586-72-97 20:12:00* Test Item Value Reference Range Interpretation Comments Urine pH (test code = 10544-8) 5.5 5-7 [facility] HospitalUrine Leukocyte Pbptgmiz0444-02-97 20:12:00* Test Item Value Reference Range Interpretation Comments Urine Leukocyte Esterase (test code = 5799-2) LARGE NEGATIVE [facility] HospitalUrine Pbwurkc0527-67-87 20:12:00* Test Item Value Reference Range Interpretation Comments Urine Nitrite (test code = 75044-6) POSITIVE NEGATIVE H [facility] HospitalUrine Vkegtpf1761-43-02 20:12:00* Test Item Value Reference Range Interpretation Comments Urine Protein (test code = 5804-0) >=300 NEGATIVE [facility] HospitalUrine Glucose (UA)2019-05-06 20:12:00* Test Item Value Reference Range Interpretation Comments Urine Glucose (UA) (test code = 2349-9) 1+ NEGATIVE H [facility] HospitalUrine Kcwgzrs4910-96-90 20:12:00* Test Item Value Reference Range Interpretation Comments Urine Ketones (test code = 30223-6) NEGATIVE NEGATIVE [facility] HospitalUrine Urycdzlbozwu0926-90-08 20:12:00* Test Item Value Reference Range Interpretation Comments Urine Urobilinogen (test code = 76140-1) 0.2 0.2-1 [facility] HospitalUrine Gqgalntug9563-34-05 20:12:00* Test Item Value Reference Range Interpretation Comments Urine Bilirubin (test code = 1978-6) NEGATIVE NEGATIVE [facility] HospitalUrine Hujqm5273-43-70 20:12:00* Test Item Value Reference Range Interpretation Comments Urine Blood (test code = 62918-9) MODERATE NEGATIVE [facility] HospitalInfluenza Virus Types A,B Antigen 2019-05-06 19:44:00* Test Item Value Reference Range Interpretation Comments Influenza Virus Types A,B Antigen (test code = 73079-1) NEGATIVE NEGATIVE [facility] HospitalInfluenza Virus Types A,B Antigen 2019-05-06 19:44:00* Test Item Value Reference Range Interpretation Comments Influenza Virus Types A,B Antigen (test code = 45295-9) NEGATIVE NEGATIVE [facility] HospitalInfluenza Virus Types A,B Antigen 2019-05-06 19:44:00* Test Item Value Reference Range Interpretation Comments Influenza Virus Types A,B Antigen (test code = 44043-0) NEGATIVE NEGATIVE [facility] HospitalLactic Acid Jspyn0043-09-36 19:41:00* Test Item Value Reference Range Interpretation Comments Lactic Acid Level (test code = Lactic Acid Level) 0.8 0.5- 2.0 [facility] HospitalCHEST 2 KOXUL6542-54-62 19:37:00 [facility] [address] [place] [address] Patient Name: MANJIT LUO MR #: [id number] : 1980 Age/Sex: 38/M Req #: [id number] Adm Physician: Ordered by: JC CATES NP Report #: [id number] Location: ER Room/Bed: Procedure: [id number] DX/CHEST 2 VIEWS Exam Date: Exam Time: REPORT STATUS: Signed EXAMINATION: CHEST 2 VIEWS INDICATION: Flulike symptoms, renal pain fls COMPARISON: Chest x-ray 05/03/2018 FINDINGS: PA and lateral views TUBES and LINES: None. LUNGS: Lungs are well inflated. There is no evidence of p neumonia or pulmonary edema. PLEURA: No pleural effusion or pneumothorax . HEART AND MEDIASTINUM: The cardiomediastinal silhouette is unremarkable. BONES AND SOFT TISSUES: No focal osseous lesions. Soft tissues are un remarkable. UPPER ABDOMEN: Unremarkable. IMPRESSION: No acute thor acic abnormality. Signed by: Dr. Sandy Colmenares MD on 05/06/2019 7:38 PM Dictated By: SANDY COLMENARES MD 37 Transcribed By: TIFFANY on 05/06/191937 CO PY TO: JC CATES LEAD FABRICATOR Group A Streptococcus Nhhubg9233-30-95 19:35:00* Test Item Value Reference Range Interpretation Comments Group A Streptococcus Screen (test code = 84444-1) NEGATIVE NEG ATIVE [facility] HospitalGroup A Streptococcus Apbzzo9673-70-43 19:35:00* Test Item Value Reference Range Interpretation Comments Group A Streptococcus Screen (test code = 06696-7) NEGATIVE NEG ATIVE [facility] HospitalGroup A Streptococcus Fwicso4923-61-73 19:35:00* Test Item Value Reference Range Interpretation Comments Group A Streptococcus Screen (test code = 25447-6) NEGATIVE NEG ATIVE [facility] HospitalInfluenza virus A and B antigen identification by yyufiknlccwzbyjfrj5407-18-02 19:03:00* Test Item Value Reference Range Interpretation Comments Influenza Virus Types A,B Antigen (test code = 24222-8) NEGATIVE NEGATIVE [facility] Hospitaltreptococcus pyogenes antigen detection in rdzzek3946-56-06 19:03:00* Test Item Value Reference Range Interpretation Comments Group A Streptococcus Screen (test code = 73261-8) NEGATIVE NEG [facility]Function[facility] K9932-33-82 15:25:13* Test Item Value Reference Range Interpretation Comments Functional protein C (test code = 01494-1) 56 % 70-165 L Low Protein C Activity and prolonged Prothrombin time consistent with vitamin K deficiency, warfarin therapy or liver disease. Recommend repeating Protein C when PT is normal.Reviewed by Huan Keita MD, PhD. Lab Interpretation (test code = 67568-3) Abnormal [facility] MethodistFunctional protein [id number] 10:14:15* Test Item Value Reference Range Interpretation Comments Functional protein S (test code = 35354-5) 91 % 74-160 Functional Protein S performed. If result is decreased Total and Free Protein S Antigen will be performed. [facility] MethodistLupus anticoagulant rkobb8159-63-02 09:56:20* Test Item Value Reference Range Interpretation Comments Prothrombin time (test code = 5902-2) 15.9 11.5- 14.5 sec H INR (test code = 82133-6) 1.3 Th e International Normalized Ratio (INR) is a therapeutic monitoring tool for patients who are stable on oral anticoagulant therapy. An INR of 2.0-3.0 is suggested for deep vein thrombosis/pulmonary embolism. PTT (test code = 24258-0) 34.0 23.0- 36.0 sec PTT therapeutic range for unfractionated heparin is61.0-112.0 seconds which corresponds to Anti-Xa0.3-0.7 U/ml. PTT lupus anticoagulant (test code = 77445-0) 36.1 27.0- 38 .0 sec Lupus anticoagulant (LA) panel consists of PT, PTT, PTT-LA, and DRVVT. If the PTT-LA is above the normal range, the hexagonal phospholipid will be performed. If the DRVVT is abovethe normal range, the DRVVC confirmatory test will be performed.A normal result for both the DRVVT and the PTT-LA means the patient is negative for lupus anticoagulant. The patient is considered positive for lupus anticoagu lant if either the RatioSCR/CONF or the hexagonal phospholipid is high (positive) on two occassions at least six weeks apart. Clinical confirmation is also required for diagnosis. DRVVT (test code = 6303-2) 45.4 29.0- 46.0 sec This test has been modified from the manufacturers instructions. The performance characteristics were determined by [facility] in a manner consistent with CLIA requirements. This test has not been cleared or approved by the U.S. Food and Drug Administration. Lab Interpretation (test code = 02999-3) Abnormal [facility] [id number] 14:35:16* Test Item Value Reference Range Interpretation Comments TB T-SPOT (test code = 2260) SEE NOTE T-SPOT TUBERCULOSISNil Control: 1Panel A: 11Panel B: 6Positive Control: SATResult: POSITIVENOTE: TMTC INDICATES TOO MANY SPOTS TO COUNT SAT INDICATES THE WELL WAS SATURATEDRESULTS INTERPRETATION:RESULTS ARE NEGATIVE WHEN (PANEL A-NIL) OR (PANEL B-NIL) <= 4 SPOTS, INCLUDING VALUES LESS THAN ZERO.RESULTS ARE POSITIVE WHEN (PANEL A-NIL) OR (PANEL B-NIL) >= 8 SPOTSRESULTS ARE BORDERELINE WHEN EITHER (PANEL A-NIL) OR (PANEL B-NIL) = 5,6,0R 7.THE TEST IS INVALID WHEN EITHER OF THE FOLLOWING CONDITIONS IS MET:1.) THE NIL CONTROL HAS >10 SPOTS2.) THE MITOGEN (POSITIVE CONTROL) HAS <20 SPOTS AND BOTH (PANEL A-NIL) AND (PANEL B- NIL) <= 4 SPOTS.M. TUBERCULOSIS INFECTION UNLIKELY, BUT CANNOT BE EXCLUDED ESPECIALLY WHEN:1. ANY ILLNESS IS CONSISTENT WITH TB DISEASE.2. LIKELIHOOD OF PROGRESSION TO DISEASE (e.g. DUE TO IMMUNOSUPPRESSION) IS INCREASED.LIMITATIONS:DIAGNOSING OR EXCLUDING TUBERCULOSIS DISEASE, AND ASSESSING THE PROBABILITY OF LTBI, REQUIRES A COMBINATION OF EPIDEMIOLOGICAL, HISTORICAL, MEDICAL, AND DIAGNOSTIC FINDINGS THAT SHOULD BE TAKEN INTO ACCOUNT WHEN INTERPRETING T-SPOT.TB REFER TO THE MOST RECENT CDC GUIDANCE (HTTP: //[email or web address].CDC.GOV/[email or web address]/TB) FOR DETAILED RECOMMENDATIONSABOUT DIAGNOSING TB INFECTION (INCLUDING DISEASE) AND SELECTING PERSONS FOR TESTING.1.) A FALSE NEGATIVE RESULT CAN BE CAUSED BY INCORRECT BLOOD SAMPLECOLLECTION OR IMPROPER HANDLING OF THE SPECIMEN, AFFECTING LYMPHOCYTE FUNCTION2.) THE PERFORMANCE OF T- SPOT.TB HAS NOT BEEN ADEQUATELY EVALUATED WITH SPECIMENS FROM INDIVIDUALS YOUNGER THAN AGE 17 YEARS, IN WOMEN, AND IN PATIENTS WITH HEMOPHILIA.3-) A FALSE POSITIVE RESULT WAS OBTAINED FOR T-SPOT.TB WHEN TESTED IN SUBJECTS WITH M. XENOPI, M. KANSASII, AND M. GORDONAE. WHILE ESAT-6 AND CFP-10 ANTIGENS ARE ABSENT FROM BCG STRAINS OF M. BOVIS AND FROM MOST ENVIRONMENTAL MYCOBACTERIA, IT IS POSSIBLE THAT A POSITIVE T-SPOT.TB RESULT MAY BE DUE TO INFECTION WITH M. KANSASII, M. SZULGAI,M. GORDONAE, OR M. MARINUM. ALTERNATIVE TESTS WOULD BE REQUIRED IF THESE INFECTIONS ARE SUSPECTED.4.) A NEGATIVE TEST RESULT DOES NOT EXCLUDE THE POSSIBILITY OF EXPOSURE TO, OR INFECTION WITH, M. TUBERCULOSIS. PATIENTS WITH RECENT EXPOSURE TO TB INFECTED INDIVIDUALS EXHIBITING A NEGATIVE T-SPOT.TB RESULT SHOULD BE CONSIDERED FOR RETESTING WITHIN 6 WEEKS OR IF OTHER RELEVANT CLINICAL SYMPTOMS INDICATE POSSIBLE INFECTION.5.) A POSITIVE TEST RESULT DOES NOT RULE IN ACTIVE TB DISEASE; OTHER TESTS SHOULD BE PERFORMED TO CONFIRM THE DIAGNOSIS OF ACTIVE TB DISEASE SUCH SPUTUM SMEAR AND CULTURE, PCR AND CHEST RADIOGRAPHY.6.) T-SPOT.TB TEST HAS NOT BEEN EVALUATED IN SUBJECTS WHO HAVE RECEIVED >1 MONTH OF ANTI-TB THERAPY.7. ) REFRIGERATED AND FROZEN SAMPLES ARE NOT RECOMMENDED FOR USE WITH T=SPOT.TB TEST.Performed by:[facility] Molecular Tuberculosis Laboratory [facility] ([id number])[place], [place] [id number] [place] [address] type 1/2 combined Ab, [id number] 13:16:14* Test Item Value Reference Range Interpretation Comments HSV 1/2 combined Ab, IgM (test code = 33933-7) 0.71 <=0.89 IV INTERPRETIVE INFORMATION: Herpes Simplex Virus Type 1 [...] occasionally persist for more than 12 months post-infection.Performed by [facility],[address] [place] [address] d[address], Trung Boyer MD, Lab. Director [facility]andro MethodistCytomegalovirus Ab, RaL8931-99-00 21:16:52* Test Item Value Reference Range Interpretation Comments Cytomegalovirus Ab, IgM (test code = 3040708) Negative Negative [facility] MethodistHLA autologous sizaasilyi2270-52-76 20:52:48* Test Item Value Reference Range Interpretation Comments AXL source (test code = 5891) Peripheral Blood AXL current serum ID (test code = 5892) [id number] [facility] serum collection D&T (test code = 5893) 05/03/2019 08:30 AM [facility] flow XM T cell result, current (test code = 5894) Negative [facility] flow XM B cell result, current (test code = 5895) Negative Case number (test code = 9590151) [id number] HLA autologous crossmatch (test code = 1090) See link below for PDF Lab Report [facility] MethodistHomocystine, whhqyv0497-92-41 12:03:28* Test Item Value Reference Range Interpretation Comments Homocysteine (test code = 70972-8) 17.5 umol/L 0-15 H The risk for coronary vascular disease increases progressively with homocysteine concentration. A 3.4 times greater risk is associated with a homocysteine concentration of greater than 15.8 umol/L as compared to a concentration below 14.1 umol/L. Lab Interpretation (test code = 20134-9) Abnormal [facility] MethodistHSV 1 & 2 glycoprotein G Ab, UtB6474-93-93 11:09:49* Test Item Value Reference Range Interpretation Comments HSV 1 glycoprotein G Ab, IgG (test code = 39432-0) Negative Neg ative Negative: No IgG antibodies to HSV1 detected. HSV 2 glycoprotein G Ab, IgG (test code = 06830-3) Negative Neg ative Negative: No IgG antibodies to HSV2 detected. Allen MethodistCytomegalovirus Ab, YlI1985-32-19 11:09:11* Test Item Value Reference Range Interpretation Comments Cytomegalovirus Ab, IgG (test code = 24233-9) Positive Negative A Positive; IgG antibody to CMV detected which may indicateexposure to CMV infection. Lab Interpretation (test code = 97265-1) Abnormal [facility] MethodistEpstein-Vee virus antibody ywom9355-48-66 11:08:37* Test Item Value Reference Range Interpretation Comments EBV Ab to viral capsid Ag, IgG (test code = 47297-0) Positive N egative A EBV Ab to viral capsid Ag, IgM (test code = 82107-2) Negative N egative EBV Ab to nuclear Ag, IgG (test code = 7883-2) Positive Negativ e A EBV Ab to early (D) Ag, IgG (test code = 39312-3) Negative Nega tive Helder-Vee virus antibody interpretation (test code = 5466) SEE C OMMENT Infection Status: Results may suggest past EBV infection. Lab Interpretation (test code = 64302-8) Abnormal [facility] MethodistParathyroid zpexkon2097-07-72 10:15:05* Test Item Value Reference Range Interpretation Comments PTH (test code = 2731-8) 507 pg/mL 15-65 H Lab Interpretation (test code = 97429-1) Abnormal [facility] MethodistAntithrombin III nnawf0718-06-24 10:06:44* Test Item Value Reference Range Interpretation Comments Antithrombin III (test code = 3174-0) 81 % 80-130 [facility] MethodistABORh - iocludaxxe7969-94-41 09:58:00* Test Item Value Reference Range Interpretation Comments ABO grouping (test code = 883-9) O Rh type (test code = 22033-7) POS [facility] UngtgyjrqOoxekpibtr5599-33-39 09:52:47* Test Item Value Reference Range Interpretation Comments Fibrinogen (test code = 26785-2) 627 mg/dL 200-450 H Lab Interpretation (test code = 36547-5) Abnormal [facility] IecabaaegMjrbvbezspu1503-33-91 09:41:25* Test Item Value Reference Range Interpretation Comments Cholesterol (test code = 2093-3) 86 mg/dL <200 [facility] MethodistCreatinine boged4902-17-61 09:41:25* Test Item Value Reference Range Interpretation Comments Creatinine (test code = 2160-0) 4.40 mg/dL 0.7-1.2 H Lab Interpretation (test code = 01191-5) Abnormal [facility] BnhaippnsVBO2183-14-79 09:41:25* Test Item Value Reference Range Interpretation Comments LDH (test code = 79132-2) 235 U/L 87-225 H Lab Interpretation (test code = 80834-6) Abnormal Allen YbupcnrepQicxsrqojqtak9484-88-04 09:41:25* Test Item Value Reference Range Interpretation Comments Triglycerides (test code = 2571-8) 103 mg/dL <150 [facility] MethodistEstimated DUJ9476-59-19 09:41:25* Test Item Value Reference Range Interpretation Comments Estimated GFR (test code = 5488) 16 mL/min/1.73 m2 A Catergory Units InterpretationG1 >=90 Normal or highG2 60-89 Mildly lqianqauaA2y 45-59 Mildly to moderately vcnkwgklzR4r 30-44 Moderately to severely decreasedG4 15-29 Severely decreasedG5 <15 Kidney failureThe eGFR was calculated using the Chronic Kidney Disease Epidemiology Collaboration (CKD-EPI) equation. Interpretation is based on recommendations of the National Kidney Foundation-Kidney Disease Outcomes Quality Initiative (NKF-KDOQI) published in 2014. Lab Interpretation (test code = 09388-9) Abnormal [facility] MethodistAmylase tfryt7997-61-26 09:41:24* Test Item Value Reference Range Interpretation Comments Amylase (test code = 1798-8) 46 U/L 28-100 [facility] MethodistGlucose rfkbt2927-27-60 09:41:24* Test Item Value Reference Range Interpretation Comments Glucose (test code = 2345-7) 146 mg/dL 65-99 H Lab Interpretation (test code = 90803-6) Abnormal [facility] MethodistPhosphorus boxdt5488-81-38 09:41:24* Test Item Value Reference Range Interpretation Comments Phosphorus (test code = 2777-1) 4.6 mg/dL 2.4-4.5 H Lab Interpretation (test code = 50516-8) Abnormal [facility] MethodistCT Abdomen Pelvis Wo Nszdvisa2044-20-51 09:37:13Hm Interface, Radiology Results 05/03/2019 9:40 AM CDTEXAMINATION: CT ABDOMEN PELVIS WO CONTRASTCLINICAL HISTORY: N18.6 End stage renal disease, E10.69 Type 1 diabetes mellitus with other specified complication, pre kidney pancreas transplantTECHNIQUE: Multiple axial images of the abdomen and pelvis were o btained without intravenous contrast administration. Sagittal and coronal comput erized reformatted images were created from the data set.CT imaging is performed using radiation dose reduction techniques. Technical factors are evaluated and adjusted to ensure appropriate moderation of exposure such as the use of iterati ve reconstruction techniques and/or automated exposure control to reduce radiati on dose.Evaluation of solid organs and vasculature is limited without the admini stration of intravenous contrast.COMPARISON: NoneFINDINGS:Lower Thorax: Unremar kableStomach: NormalSmall Bowel: NormalColon: Scattered descending and sigmoid c olonic diverticulosis without evidence of acute diverticulitisAppendix: No appen dicitisLiver: NormalGallbladder and biliary tree: Cholecystectomy. No abnormal b iliary ductal dilatation seen.Spleen: NormalPancreas: Atrophic appearance with m ultiple coarse calcifications.Adrenals: NormalKidneys and ureters: Mild prominen ce of the left renal pelvis and ureter. A right-sided double-J ureteral stent is seen extending from the right renal pelvis to the bladder.Bladder: Bladder wall is significantly thickened. Bladder is underdistended and catheterized via a alanis prapubic catheter.Reproductive Organs: NormalLymph Nodes: Enlarged right greater than left inguinal lymph nodes. No enlarged adenopathy within the abdomen or pe lvis.Peritoneum/Retroperitoneum: No free fluid. No free air. No abnormal nodular ity.Vessels: Evaluation of the vasculature is limited without the presence of IV contrast. Normal caliber noncontrast silhouette of the abdominal aorta.Musculos keletal: Mild hazy opacity of the osseous structures may indicate renal osteodys trophy.IMPRESSION:*Urinary bladder wall is significantly thickened, which may in dicate chronic cystitis. There is a suprapubic catheter in place.*A right-sided double-J ureteral stent is in place.*Coarse pancreatic parenchymal calcification s, suggestive of prior bouts of pancreatitis.*Colonic diverticulosis without hayes dence of diverticulitis.*Enlarged right greater than left inguinal lymph nodes, nonspecific though may be reactive.[id number] [facility] hospitalXR Chest 2 Wl7572-62-02 09:36:57Hm Interface, Radiology Results 05/03/2019 9:40 AM CDTEXAMINATION: XR CHEST 2 VWCLINICAL HISTORY: N18.6 End stage renal disease, E10.69 Type 1 diabetes mellitus with other specified complication, Routine CXR pre-op no clinical concern from hx and physicalCOMPARISON: NoneIMPRESSION:The cardiomediastinal silhouette is normal in appearance.The lungs are clear. There is no evidence of consolidation, congestion, or pneumothorax.A pleural effusion is not present.Visualized skeletal structures demonstrate no definite abnormality.Negative examination.[facility]-[id number] MethodistHGB [id number] 16:24:00* Test Item Value Reference Range Interpretation Comments HEMOGLOBIN (test code = HGB) 8.1 gm/dL 13.0-17.0 L HEMATOCRIT (test code = HCT) 25.8 % 36.0-48.0 L [id number] 16:47:00* Test Item Value Reference Range Interpretation Comments FERRITIN (test code = CHANELLE) 374 ng/mL 23.9-336.2 H HGB [id number] 15:41:00* Test Item Value Reference Range Interpretation Comments HEMOGLOBIN (test code = HGB) 8.0 gm/dL 13.0-17.0 L HEMATOCRIT (test code = HCT) 24.8 % 36.0-48.0 LL BASIC METABOLIC [id number] 18:42:00* Test Item Value Reference Range Interpretation Comments SODIUM (test code = NA) 137 mmol/l 134.0-147.0 N POTASSIUM (test code = K) 5.0 mmol/L 3.6-5.2 N CHLORIDE (test code = CL) 108 mmol/l 98.0-107.0 H CARBON DIOXIDE (test code = CO2) 16.7 mmol/l 21.0-33.0 L ANION GAP (test code = GAP) 17.3 0-20 N GLUCOSE (test code = GLU) 139 mg/dl 70.0-110.0 H BLOOD UREA NITROGEN (test code = BUN) 64 mg/dl 7.0-18.0 H CREATININE (test code = CREAT) 5.14 mg/dL 0.60-1.30 HH GFR NON BLACK (test code = GFRNONBLACK) 13 mL/min 105-110 L GFR BLACK (test code = GFRBLACK) 16 mL/min 127-133 L CALCIUM (test code = CA) 6.3 mg/dl 8.0-10.5 L [id number] 18:42:00* Test Item Value Reference Range Interpretation Comments PHOSPHOROUS (test code = PHOS) 6.1 mg/dl 2.5-4.9 H URIC [id number] 18:42:00* Test Item Value Reference Range Interpretation Comments URIC ACID (test code = URIC) 8.7 mg/dl 2.6-7.2 H [id number] 18:42:00* Test Item Value Reference Range Interpretation Comments MAGNESIUM (test code = MAG) 1.2 mg/dl 1.8-2.4 L FE W/TOTAL IRON BINDING CAP.2019-04-14 18:42:00* Test Item Value Reference Range Interpretation Comments SERUM IRON (test code = IRON) 36 mcg/dl 35.0-150.0 N Patients treated with metal-binding drugs such asdeferoxamine may have depressed iron values due to ironchelation. Clinical impact would be mitigated byconsideration of clinical symptoms. TOTAL IRON BINDING CAPACITY (test code = TIBC) 185 mcg/dl 260.0-4 45.0 L Result is in microgram per deciliter IRON SATURATION (test code = FESAT) 19 % 15-50 N URINALYSIS [id number] 17:35:00* Test Item Value Reference Range Interpretation Comments UA COLOR (test code = COLU) LT YELLOW UA APPEARANCE (test code = APPU) CLDY UA GLUCOSE DIPSTICK (test code = DGLUU) NORMAL mg/dl NORMAL UA BILIRUBIN DIPSTICK (test code = BILU) NEGATIVE mg/dL NEGATIVE UA KETONE DIPSTICK (test code = KETU) NEGATIVE mg/dl NEGATIVE UA SPECIFIC GRAVITY (test code = SGU) 1.015 1.000-1.030 UA BLOOD DIPSTICK (test code = AYAH) 250 Omega/micL Omega/micL NEGATIVE A UA PH DIPSTICK (test code = LUISITO) 6.0 5.0-9.0 UA PROTEIN DIPSTICK (test code = PROU) 500 mg/dl mg/dl NEGATIVE A UA UROBILINIOGEN DIPSTICK (test code = URO) NORMAL mg/dl NORMAL UA NITRITE DIPSTICK (test code = ANGEL) POSITIVE NEGATIVE A UA LEUKOCYTE ESTERASE DIPSTICK (test code = LEUU) 500 Latosha/mi cL Latosha/micL NEGATIVE A UA WBC (test code = WBCU) >100 WBC/HPF NONE A UA RBC (test code = RBCU) 10-25 RBC/HPF 0-3 A UA EPITHELIAL CELLS (test code = EPIU) 0-3 EPI/HPF 0-3 UA BACTERIA (test code = BACU) MOD NONE UR PROTEIN/CREATININE [id number] 17:35:00* Test Item Value Reference Range Interpretation Comments UR PROTEIN RESULT (test code = PROTU) 421.0 MG/DL 0-15.0 H UR CREATININE RESULT (test code = CREATU) 72.88 MG/DL 30-125 N PROTEIN/CREATININE RATIO (test code = P/CRATIO) 5.0 mg/g cre 0-200 N CBC W/AUTO [id number] 17:25:00* Test Item Value Reference Range Interpretation Comments WHITE BLOOD CELL (test code = WBC) 5.8 K/mm3 4.5-11.0 N RED BLOOD CELL (test code = RBC) 2.98 M/mm3 4.40-5.90 L HEMOGLOBIN (test code = HGB) 8.0 gm/dL 13.0-17.0 L HEMATOCRIT (test code = HCT) 25.9 % 36.0-48.0 L MEAN CELL VOLUME (test code = MCV) 86.9 UM3 80.0-94.0 N MEAN CELL HGB (test code = MCH) 26.8 UUG 25.5-32.5 N MEAN CELL HGB CONCETRATION (test code = MCHC) 30.9 gm/dL 29.0-35. 5 N RED CELL DISTRIBUTION WIDTH (test code = RDW) 14.6 % 11.5-15. 0 N RED CELL DISTRIBUTION WIDTH SD (test code = RDW-SD) 46.3 fL 34 .8-50.2 N PLATELET COUNT (test code = PLT) 124 K/mm3 150-400 L MEAN PLATELET VOLUME (test code = MPV) 8.9 fl 7.4-10.4 N NEUTROPHIL % (test code = NT%) 69.1 % 49.0-76.0 N IMMATURE GRANULOCYTE % (test code = IG%) 0.5 % 0.0-0.4 H LYMPHOCYTE % (test code = LY%) 21.1 % 23.0-38.0 L MONOCYTE % (test code = MO%) 5.7 % 1.0-10.0 N EOSINOPHIL % (test code = EO%) 3.3 % 1.0-5.0 N BASOPHIL % (test code = BA%) 0.3 % 0.0-1.0 N NEUTROPHIL # (test code = NT#) 4.0 K/mm3 2.4-6.3 N IMMATURE GRANULOCYTE # (test code = IG#) 0.03 x10 3/uL 0.00-0.07 N LYMPHOCYTE # (test code = LY#) 1.2 K/mm3 1.2-4.0 N MONOCYTE # (test code = MO#) 0.3 K/mm3 0.0-0.6 N EOSINOPHIL # (test code = EO#) 0.2 K/MM3 0.0-0.7 N BASOPHIL # (test code = BA#) 0.0 K/mm3 0.0-0.2 N URINALYSIS [id number] 17:24:00* Test Item Value Reference Range Interpretation Comments UA COLOR (test code = COLU) LT YELLOW UA APPEARANCE (test code = APPU) CLDY UA GLUCOSE DIPSTICK (test code = DGLUU) NORMAL mg/dl NORMAL UA BILIRUBIN DIPSTICK (test code = BILU) NEGATIVE mg/dL NEGATIVE UA KETONE DIPSTICK (test code = KETU) NEGATIVE mg/dl NEGATIVE UA SPECIFIC GRAVITY (test code = SGU) 1.015 1.000-1.030 UA BLOOD DIPSTICK (test code = AYAH) 250 Omega/micL Omega/micL NEGATIVE A UA PH DIPSTICK (test code = LUISITO) 6.0 5.0-9.0 UA PROTEIN DIPSTICK (test code = PROU) 500 mg/dl mg/dl NEGATIVE A UA UROBILINIOGEN DIPSTICK (test code = URO) NORMAL mg/dl NORMAL UA NITRITE DIPSTICK (test code = ANGEL) POSITIVE NEGATIVE A UA LEUKOCYTE ESTERASE DIPSTICK (test code = LEUU) 500 Latosha/mi cL Latosha/micL NEGATIVE A UA WBC (test code = WBCU) >100 WBC/HPF NONE A UA RBC (test code = RBCU) 10-25 RBC/HPF 0-3 A UA EPITHELIAL CELLS (test code = EPIU) 0-3 EPI/HPF 0-3 UA BACTERIA (test code = BACU) MOD NONE UR PROTEIN/CREATININE [id number] 17:24:00* Test Item Value Reference Range Interpretation Comments UR PROTEIN RESULT (test code = PROTU) MG/DL 0-15.0 UR CREATININE RESULT (test code = CREATU) MG/DL 30-125 PROTEIN/CREATININE RATIO (test code = P/CRATIO) mg/g cre 0-200 URINALYSIS [id number] 17:23:00* Test Item Value Reference Range Interpretation Comments UA COLOR (test code = COLU) LT YELLOW UA APPEARANCE (test code = APPU) CLDY UA GLUCOSE DIPSTICK (test code = DGLUU) NORMAL mg/dl NORMAL UA BILIRUBIN DIPSTICK (test code = BILU) NEGATIVE mg/dL NEGATIVE UA KETONE DIPSTICK (test code = KETU) NEGATIVE mg/dl NEGATIVE UA SPECIFIC GRAVITY (test code = SGU) 1.015 1.000-1.030 UA BLOOD DIPSTICK (test code = AYAH) 250 Omega/micL Omega/micL NEGATIVE A UA PH DIPSTICK (test code = LUISITO) 6.0 5.0-9.0 UA PROTEIN DIPSTICK (test code = PROU) 500 mg/dl mg/dl NEGATIVE A UA UROBILINIOGEN DIPSTICK (test code = URO) NORMAL mg/dl NORMAL UA NITRITE DIPSTICK (test code = ANGEL) POSITIVE NEGATIVE A UA LEUKOCYTE ESTERASE DIPSTICK (test code = LEUU) 500 Latosha/mi cL [place]ha/micL NEGATIVE A UA WBC (test code = WBCU) WBC/HPF NONE UA RBC (test code = RBCU) RBC/HPF 0-3 UA EPITHELIAL CELLS (test code = EPIU) EPI/HPF 0-3 UA BACTERIA (test code = BACU) NONE UR PROTEIN/CREATININE [id number] 17:23:00* Test Item Value Reference Range Interpretation Comments UR PROTEIN RESULT (test code = PROTU) MG/DL 0-15.0 UR CREATININE RESULT (test code = CREATU) MG/DL 30-125 PROTEIN/CREATININE RATIO (test code = P/CRATIO) mg/g cre 0-200 Sodium [id number] 00:38:00* Test Item Value Reference Range Interpretation Comments Sodium Level (test code = 2951-2) 137 136-145 [facility] HospitalPotassium Cwgxd2407-68-01 00:38:00* Test Item Value Reference Range Interpretation Comments Potassium Level (test code = 2823-3) 5.0 3.5-5.1 [facility] HospitalChloride Ftmww5462-81-27 00:38:00* Test Item Value Reference Range Interpretation Comments Chloride Level (test code = 2075-0) 116 98-107 H [facility] HospitalCarbon Dioxide Qayaq5036-09-39 00:38:00* Test Item Value Reference Range Interpretation Comments Carbon Dioxide Level (test code = 2028-9) 13 22-29 L [facility] HospitalAnion [id number] 00:38:00* Test Item Value Reference Range Interpretation Comments Anion Gap (test code = 14161-5) 13.0 8-16 [facility] HospitalBlood Urea Ovsucjvj8055-46-37 00:38:00* Test Item Value Reference Range Interpretation Comments Blood Urea Nitrogen (test code = 3094-0) 42 7-26 H [facility] HospitalCreatinine2020-01-27 00:38:00* Test Item Value Reference Range Interpretation Comments Creatinine (test code = 2160-0) 4.16 0.72-1.25 H [facility] HospitalBUN/Creatinine Yeohf8441-72-35 00:38:00* Test Item Value Reference Range Interpretation Comments BUN/Creatinine Ratio (test code = 3097-3) 10 6-25 [facility] HospitalEstimat Glomerular Filtration Rate 2019-03-21 00:38:00* Test Item Value Reference Range Interpretation Comments Estimat Glomerular Filtration Rate (test code = 221843171) 16 >60 L Ranges were taken from the National Kidney Disease Education Program and the [facility] literature.Reference ranges:60 or greater: Lmuyqb89-51 ( for 3 consecutive months): Chronic kidney disease 15 or less: Kidney failureGonzales Memorial HospitalGlucose Ommzc4903-58-65 00:38:00* Test Item Value Reference Range Interpretation Comments Glucose Level (test code = XIT6185) 172 74-118 H [facility] HospitalCalcium Egoxy4570-87-21 00:38:00* Test Item Value Reference Range Interpretation Comments Calcium Level (test code = 25690-4) 6.6 8.4-10.2 LL Results repeated and called to MICHAEL MONTGOMERY RN at 0037 on 03/21/19 by [place] branch Read back and verified.[facility] HospitalWhite Blood Imztd0388-69-12 00:36:00* Test Item Value Reference Range Interpretation Comments White Blood Count (test code = 6690-2) 5.55 4.8-10.8 [facility] HospitalRed Blood Efwsj2052-84-77 00:36:00* Test Item Value Reference Range Interpretation Comments Red Blood Count (test code = 789-8) 2.73 4.3-5.7 L [facility] HospitalHemoglobin2020-01-27 00:36:00* Test Item Value Reference Range Interpretation Comments Hemoglobin (test code = 17438-4) 7.4 14.0-18.0 L [facility] HospitalHematocrit2020-01-27 00:36:00* Test Item Value Reference Range Interpretation Comments Hematocrit (test code = 4544-3) 23.3 38.2-49.6 L [facility] HospitalMean Corpuscular Obkpwa3066-07-73 00:36:00* Test Item Value Reference Range Interpretation Comments Mean Corpuscular Volume (test code = 787-2) 85.3 81-99 [facility] HospitalMean Corpuscular Dtqdmwqigv6634-55-83 00:36:00* Test Item Value Reference Range Interpretation Comments Mean Corpuscular Hemoglobin (test code = 785-6) 27.1 28-32 L [facility] HospitalMean Corpuscular Hemoglobin Concent 2019-03-21 00:36:00* Test Item Value Reference Range Interpretation Comments Mean Corpuscular Hemoglobin Concent (test code = 786-4) 31.8 31-35 [facility] HospitalRed Cell Distribution Evuub4677-28-35 00:36:00* Test Item Value Reference Range Interpretation Comments Red Cell Distribution Width (test code = 14933-8) 14.7 11.7 -14.4 H [facility] HospitalPlatelet Ejwez4698-30-38 00:36:00* Test Item Value Reference Range Interpretation Comments Platelet Count (test code = 777-3) 187 140-360 [facility] HospitalNeutrophils (%) (Auto)2019-03-21 00:36:00 * Test Item Value Reference Range Interpretation Comments Neutrophils (%) (Auto) (test code = 04332-2) 68.1 38.7-80.0 [facility] HospitalLymphocytes (%) (Auto)2019-03-21 00:36:00 * Test Item Value Reference Range Interpretation Comments Lymphocytes (%) (Auto) (test code = 736-9) 19.8 18.0-39.1 [facility] HospitalMonocytes (%) (Auto)2019-03-21 00:36:00* Test Item Value Reference Range Interpretation Comments Monocytes (%) (Auto) (test code = 5905-5) 9.2 4.4-11.3 [facility] HospitalEosinophils (%) (Auto)2019-03-21 00:36:00 * Test Item Value Reference Range Interpretation Comments Eosinophils (%) (Auto) (test code = 713-8) 1.6 0.0-6.0 [facility] HospitalBasophils (%) (Auto)2019-03-21 00:36:00* Test Item Value Reference Range Interpretation Comments Basophils (%) (Auto) (test code = 706-2) 0.4 0.0-1.0 [facility] HospitalIM GRANULOCYTES %2019-03-21 00:36:00* Test Item Value Reference Range Interpretation Comments IM GRANULOCYTES % (test code = IM GRANULOCYTES %) 0.9 0.0- 1.0 [facility] HospitalNeutrophils # (Auto)2019-03-21 00:36:00* Test Item Value Reference Range Interpretation Comments Neutrophils # (Auto) (test code = 751-8) 3.8 2.1-6.9 [facility] HospitalLymphocytes # (Auto)2019-03-21 00:36:00* Test Item Value Reference Range Interpretation Comments Lymphocytes # (Auto) (test code = 00094-9) 1.1 1.0-3.2 [facility] HospitalMonocytes # (Auto)2019-03-21 00:36:00* Test Item Value Reference Range Interpretation Comments Monocytes # (Auto) (test code = 742-7) 0.5 0.2-0.8 [facility] HospitalEosinophils # (Auto)2019-03-21 00:36:00* Test Item Value Reference Range Interpretation Comments Eosinophils # (Auto) (test code = 711-2) 0.1 0.0-0.4 [facility] HospitalBasophils # (Auto)2019-03-21 00:36:00* Test Item Value Reference Range Interpretation Comments Basophils # (Auto) (test code = 704-7) 0.0 0.0-0.1 [facility] HospitalAbsolute Immature Granulocyte (auto 2019-03-21 00:36:00* Test Item Value Reference Range Interpretation Comments Absolute Immature Granulocyte (auto (shin t code = Absolute Immature Granulocyte (auto) 0.05 0-0.1 [facility] HospitalUrine [id number] 00:27:00* Test Item Value Reference Range Interpretation Comments Urine WBC (test code = 5821-4) >50 0-5 H [facility] HospitalUrine DQI8199-35-89 00:27:00* Test Item Value Reference Range Interpretation Comments Urine RBC (test code = 63075-9) >50 0-5 H [facility] HospitalUrine Tmfaobhn6917-41-28 00:27:00* Test Item Value Reference Range Interpretation Comments Urine Bacteria (test code = 90466-5) MANY NONE H [facility] HospitalUrine Epithelial Aomvm2736-17-46 00:27:00 * Test Item Value Reference Range Interpretation Comments Urine Epithelial Cells (test code = 38233-7) FEW NONE [facility] HospitalUrine Lmhny0894-02-07 00:19:00* Test Item Value Reference Range Interpretation Comments Urine Color (test code = 5778-6) REMEDIOS YELLOW H [facility] HospitalUrine Qvkklqj1172-13-45 00:19:00* Test Item Value Reference Range Interpretation Comments Urine Clarity (test code = 44589-2) CLOUDY CLEAR H [facility] HospitalUrine Specific Bnhhamw7733-97-06 00:16:00 * Test Item Value Reference Range Interpretation Comments Urine Specific [place] (test code = 5811-5) 1.025 1.010-1.02 5 [facility] HospitalUrine bZ2341-92-11 00:16:00* Test Item Value Reference Range Interpretation Comments Urine pH (test code = 84771-0) 6.5 5-7 [facility] HospitalUrine Leukocyte Xnvofluq5928-11-18 00:16:00* Test Item Value Reference Range Interpretation Comments Urine Leukocyte Esterase (test code = 5799-2) 2+ NEGATIVE [facility] Bllwphk2465-32-28 00:16:00* Test Item Value Reference Range Interpretation Comments Urine Nitrite (test code = 97677-2) POSITIVE NEGATIVE [facility] CenterUrine Iaknvub0702-65-35 00:16:00* Test Item Value Reference Range Interpretation Comments Urine Protein (test code = 5804-0) 3+ NEGATIVE H [facility] HospitalUrine Glucose (UA)2019-03-21 00:16:00* Test Item Value Reference Range Interpretation Comments Urine Glucose (UA) (test code = 2349-9) 1+ NEGATIVE H [facility] HospitalUrine Qnwwvka3564-12-73 00:16:00* Test Item Value Reference Range Interpretation Comments Urine Ketones (test code = 53162-3) NEGATIVE NEGATIVE [facility] Yzoldjqooqsl3753-24-56 00:16:00* Test Item Value Reference Range Interpretation Comments Urine Urobilinogen (test code = 12634-0) 0.2 0.2-1 [facility] HospitalUrine Keivgxzvf3659-53-23 00:16:00* Test Item Value Reference Range Interpretation Comments Urine Bilirubin (test code = 1978-6) NEGATIVE NEGATIVE [facility] HospitalUrine Uihgi8287-48-91 00:16:00* Test Item Value Reference Range Interpretation Comments Urine Blood (test code = 40715-1) 4+ NEGATIVE H [facility] HospitalBedside Mbtbcub6561-26-95 11:47:00* Test Item Value Reference Range Interpretation Comments Bedside Glucose (test code = 06510-5) 113 70-120 Meter ID: [id number] [facility] Glucose 2019-02-20 11:47:00* Test Item Value Reference Range Interpretation Comments Bedside Glucose (test code = 39202-2) 113 70-120 Meter ID: [id number] [facility] 2019-02-19 12:01:00* Test Item Value Reference Range Interpretation Comments Sodium Level (test code = 2951-2) 135 136-145 L [facility] HospitalPotassium Xrqlw0907-76-29 12:01:00* Test Item Value Reference Range Interpretation Comments Potassium Level (test code = 2823-3) 4.4 3.5-5.1 [facility] HospitalChloride Jwnld8286-81-03 12:01:00* Test Item Value Reference Range Interpretation Comments Chloride Level (test code = 2075-0) 107 98-107 [facility] HospitalCarbon Dioxide Ynwak8109-75-64 12:01:00* Test Item Value Reference Range Interpretation Comments Carbon Dioxide Level (test code = 2028-9) 22 22-29 [facility] HospitalAnion Ote8861-45-17 12:01:00* Test Item Value Reference Range Interpretation Comments Anion Gap (test code = 71212-9) 10.4 8-16 [facility] HospitalBlood Urea Dwtpwndt8424-09-42 12:01:00* Test Item Value Reference Range Interpretation Comments Blood Urea Nitrogen (test code = 3094-0) 28 7-26 H [facility] HospitalCreatinine2019-12-28 12:01:00* Test Item Value Reference Range Interpretation Comments Creatinine (test code = 2160-0) 3.39 0.72-1.25 H [facility] HospitalBUN/Creatinine Owpsq4345-25-87 12:01:00* Test Item Value Reference Range Interpretation Comments BUN/Creatinine Ratio (test code = 3097-3) 8 6-25 [facility] HospitalEstimat Glomerular Filtration Rate 2019-02-19 12:01:00* Test Item Value Reference Range Interpretation Comments Estimat Glomerular Filtration Rate (test code = 287905642) 20 >60 L Ranges were taken from the National Kidney Disease Education Program and the [facility] Kidney Foundation literature.Reference ranges:60 or greater: Ruvjyc68-31 ( for 3 consecutive months): Chronic kidney disease 15 or less: Kidney failureGonzales Memorial HospitalGlucose Ayomt3175-73-06 12:01:00* Test Item Value Reference Range Interpretation Comments Glucose Level (test code = UGK2545) 158 74-118 H [facility] HospitalCalcium Sxpfm4035-78-26 12:01:00* Test Item Value Reference Range Interpretation Comments Calcium Level (test code = 65863-7) 7.2 8.4-10.2 L [facility] HospitalWhite Blood Umseh5572-36-58 11:43:00* Test Item Value Reference Range Interpretation Comments White Blood Count (test code = 6690-2) 3.62 4.8-10.8 L [facility] HospitalRed Blood Ozdnz9760-47-63 11:43:00* Test Item Value Reference Range Interpretation Comments Red Blood Count (test code = 789-8) 2.84 4.3-5.7 L [facility] HospitalHemoglobin2019-12-28 11:43:00* Test Item Value Reference Range Interpretation Comments Hemoglobin (test code = 66532-3) 7.5 14.0-18.0 L [facility] HospitalHematocrit2019-12-28 11:43:00* Test Item Value Reference Range Interpretation Comments Hematocrit (test code = 4544-3) 23.2 38.2-49.6 L [facility] HospitalMean Corpuscular Wksqqo9756-48-01 11:43:00* Test Item Value Reference Range Interpretation Comments Mean Corpuscular Volume (test code = 787-2) 81.7 81-99 [facility] HospitalMean Corpuscular Oaofyodokm4845-32-00 11:43:00* Test Item Value Reference Range Interpretation Comments Mean Corpuscular Hemoglobin (test code = 785-6) 26.4 28-32 L [facility] HospitalMean Corpuscular Hemoglobin Concent 2019-02-19 11:43:00* Test Item Value Reference Range Interpretation Comments Mean Corpuscular Hemoglobin Concent (test code = 786-4) 32.3 31-35 [facility] HospitalRed Cell Distribution Hygsc8095-44-03 11:43:00* Test Item Value Reference Range Interpretation Comments Red Cell Distribution Width (test code = 53007-1) 15.9 11.7 -14.4 H [facility] HospitalPlatelet Nymff0180-98-27 11:43:00* Test Item Value Reference Range Interpretation Comments Platelet Count (test code = 777-3) 95 140-360 L [facility] HospitalNeutrophils (%) (Auto)2019-02-19 11:43:00 * Test Item Value Reference Range Interpretation Comments Neutrophils (%) (Auto) (test code = 24666-9) 57.5 38.7-80.0 [facility] HospitalLymphocytes (%) (Auto)2019-02-19 11:43:00 * Test Item Value Reference Range Interpretation Comments Lymphocytes (%) (Auto) (test code = 736-9) 30.9 18.0-39.1 [facility] HospitalMonocytes (%) (Auto)2019-02-19 11:43:00* Test Item Value Reference Range Interpretation Comments Monocytes (%) (Auto) (test code = 5905-5) 6.9 4.4-11.3 [facility] HospitalEosinophils (%) (Auto)2019-02-19 11:43:00 * Test Item Value Reference Range Interpretation Comments Eosinophils (%) (Auto) (test code = 713-8) 3.3 0.0-6.0 [facility] HospitalBasophils (%) (Auto)2019-02-19 11:43:00* Test Item Value Reference Range Interpretation Comments Basophils (%) (Auto) (test code = 706-2) 0.3 0.0-1.0 [facility] HospitalIM GRANULOCYTES %2019-02-19 11:43:00* Test Item Value Reference Range Interpretation Comments IM GRANULOCYTES % (test code = IM GRANULOCYTES %) 1.1 0.0- 1.0 H [facility] HospitalNeutrophils # (Auto)2019-02-19 11:43:00* Test Item Value Reference Range Interpretation Comments Neutrophils # (Auto) (test code = 751-8) 2.1 2.1-6.9 [facility] HospitalLymphocytes # (Auto)2019-02-19 11:43:00* Test Item Value Reference Range Interpretation Comments Lymphocytes # (Auto) (test code = 37633-4) 1.1 1.0-3.2 [facility] HospitalMonocytes # (Auto)2019-02-19 11:43:00* Test Item Value Reference Range Interpretation Comments Monocytes # (Auto) (test code = 742-7) 0.3 0.2-0.8 [facility] HospitalEosinophils # (Auto)2019-02-19 11:43:00* Test Item Value Reference Range Interpretation Comments Eosinophils # (Auto) (test code = 711-2) 0.1 0.0-0.4 [facility] HospitalBasophils # (Auto)2019-02-19 11:43:00* Test Item Value Reference Range Interpretation Comments Basophils # (Auto) (test code = 704-7) 0.0 0.0-0.1 [facility] HospitalAbsolute Immature Granulocyte (auto 2019-02-19 11:43:00* Test Item Value Reference Range Interpretation Comments Absolute Immature Granulocyte (auto (shin t code = Absolute Immature Granulocyte (auto) 0.04 0-0.1 [facility] HospitalUrine Fcttpnw2470-77-12 07:44:00* Test Item Value Reference Range Interpretation Comments Urine Culture (test code = 630-4) No Result Data Provided [facility] HospitalUrine Dkmfoly5383-90-91 07:44:00* Test Item Value Reference Range Interpretation Comments Urine Culture (test code = 630-4) No Result Data Provided [facility] Yifsulu4411-20-33 07:44:00* Test Item Value Reference Range Interpretation Comments Urine Culture (test code = 630-4) No Result Data Provided [facility] HospitalUrine Owidfmv2005-65-10 07:44:00* Test Item Value Reference Range Interpretation Comments Urine Culture (test code = 630-4) No Result Data Provided [facility] HospitalUrine Jujfksj6529-07-44 07:44:00* Test Item Value Reference Range Interpretation Comments Urine Culture (test code = 630-4) No Result Data Provided [facility] HospitalNEPH TUBE REMOVAL W/FL XZHEX0777-18-98 15:39:00 [facility] [address] [address] Patient Name: MANJIT LUO MR #: [id number] : 1980 Age/Sex: 38/M Req #: [id number] [facility] Physician: TONY MAY MD Ordered by: TONY MAY MD Report #: [id number] Location: MED/SURG Room/Bed: [facility] [place] Procedure: [id number] IR/NE PH TUBE REMOVAL W/FL RIGHT Exam Date: Exam Time: REPORT STATUS: Signed Fluoroscopic guided removal of right nephrostomy catheter Clinical indication: Patient indwelling right ureteral stent. No longer needs nephrostomy catheter. T echnique/findings: The patient's right nephrostomy catheter was removed under fluoroscopic control in order to not dislodge the right double-J ureteral sten t. The catheter was removed in total. The double-J stent remains in place. Total fluoroscopy time 0.1 minutes. Estimated dose: 0.452 mGy BEKAH Impr ession: Technically successful and uncomplicated fluoroscopic guided right nep hrostomy tube removal. Signed by: Ronnie Guallpa MD on 02/18/2019 3:41 PM Dictated By: RONNIE GUALLPA MD 40 Transcribed By: TIFFANY on 02/18/191540 COPY TO: TONY MAY MD Vpkmqfzq7399-31-10 07:06:00* Test Item Value Reference Range Interpretation Comments Ferritin (test code = 2276-4) 23.96 21.81-274.66 [facility] 07:06:00* Test Item Value Reference Range Interpretation Comments Ferritin (test code = 2276-4) 23.96 21.81-274.66 [facility] Xnxhlat4131-98-21 06:39:00* Test Item Value Reference Range Interpretation Comments Ionized Calcium (test code = 37984-8) 1.0 1.09-1.30 L [facility] Ijrtufq4055-38-94 06:39:00* Test Item Value Reference Range Interpretation Comments Ionized Calcium (test code = 84066-2) 1.0 1.09-1.30 L [facility] Apxasvb9705-42-47 06:39:00* Test Item Value Reference Range Interpretation Comments Ionized Calcium (test code = 67155-7) 1.0 1.09-1.30 L [facility] Mqwmivd8482-00-16 06:39:00* Test Item Value Reference Range Interpretation Comments Ionized Calcium (test code = 87661-9) 1.0 1.09-1.30 L [facility] Kqdyauu6491-59-19 06:39:00* Test Item Value Reference Range Interpretation Comments Ionized Calcium (test code = 01541-2) 1.0 1.09-1.30 L [facility] Reooo2023-22-46 08:27:00* Test Item Value Reference Range Interpretation Comments Phosphorus Level (test code = GTS9925) 4.3 2.3-4.7 [facility]2019-12-26 08:27:00* Test Item Value Reference Range Interpretation Comments Albumin (test code = 1751-7) 2.4 3.5-5.0 L [facility] Jmiyw9250-25-59 08:27:00* Test Item Value Reference Range Interpretation Comments Phosphorus Level (test code = ZMC2295) 4.3 2.3-4.7 [facility]2019-12-26 08:27:00* Test Item Value Reference Range Interpretation Comments Albumin (test code = 1751-7) 2.4 3.5-5.0 L [facility] Qpndg5192-37-54 10:43:00* Test Item Value Reference Range Interpretation Comments Urine Color (test code = 5778-6) REMEDIOS YELLOW H [facility] Gyggare6334-98-36 10:43:00* Test Item Value Reference Range Interpretation Comments Urine Clarity (test code = 51583-6) CLOUDY CLEAR H [facility] Specific Dnzlntw2827-60-44 10:43:00 * Test Item Value Reference Range Interpretation Comments Urine Specific [place] (test code = 5811-5) 1.020 1.010-1.02 5 [facility] eI5465-76-81 10:43:00* Test Item Value Reference Range Interpretation Comments Urine pH (test code = 03268-8) 6.5 5-7 [facility] Leukocyte Uwfimpyp0727-92-56 10:43:00* Test Item Value Reference Range Interpretation Comments Urine Leukocyte Esterase (test code = 5799-2) MODERATE NEGATIVE [facility] Xnaglmt0713-12-56 10:43:00* Test Item Value Reference Range Interpretation Comments Urine Nitrite (test code = 76114-9) NEGATIVE NEGATIVE [facility] Xhemznl9482-57-33 10:43:00* Test Item Value Reference Range Interpretation Comments Urine Protein (test code = 5804-0) 2+ NEGATIVE H [facility] Glucose (UA)2019-02-16 10:43:00* Test Item Value Reference Range Interpretation Comments Urine Glucose (UA) (test code = 2349-9) NEGATIVE NEGATIVE [facility] Zofzupo2747-37-52 10:43:00* Test Item Value Reference Range Interpretation Comments Urine Ketones (test code = 06108-8) NEGATIVE NEGATIVE [facility] Rbgoyegubktx7784-25-42 10:43:00* Test Item Value Reference Range Interpretation Comments Urine Urobilinogen (test code = 25967-3) 0.2 0.2-1 [facility] Ricwzekor2298-31-90 10:43:00* Test Item Value Reference Range Interpretation Comments Urine Bilirubin (test code = 1978-6) SMALL NEGATIVE [facility] Ditvw1972-72-43 10:43:00* Test Item Value Reference Range Interpretation Comments Urine Blood (test code = 43130-4) NEGATIVE NEGATIVE [facility] UBZ0234-25-73 10:43:00* Test Item Value Reference Range Interpretation Comments Urine WBC (test code = 5821-4) 0-5 0-5 [facility] SDN8025-74-36 10:43:00* Test Item Value Reference Range Interpretation Comments Urine RBC (test code = 40787-3) 0-5 0-5 [facility] Infungvr2838-75-76 10:43:00* Test Item Value Reference Range Interpretation Comments Urine Bacteria (test code = 62014-5) RARE NONE [facility] Epithelial Nvzto8734-87-91 10:43:00 * Test Item Value Reference Range Interpretation Comments Urine Epithelial Cells (test code = 42063-9) FEW NONE [facility] HospitalBacterial urine yvhkiaa6377-73-68 09:30:00* Test Item Value Reference Range Interpretation Comments Urine Culture (test code = 630-4) STAPHYLOCOCCUS AUREUS [facility] HospitalMagnesium Buvsd7568-01-17 06:58:00* Test Item Value Reference Range Interpretation Comments Magnesium Level (test code = 71712-2) 1.3 1.3-2.1 [facility] Fzzwv4284-50-16 06:58:00* Test Item Value Reference Range Interpretation Comments Magnesium Level (test code = 51277-5) 1.3 1.3-2.1 [facility] Vsbyh1188-81-82 06:58:00* Test Item Value Reference Range Interpretation Comments Magnesium Level (test code = 05533-7) 1.3 1.3-2.1 [facility] HospitalIR LEMTWWY8328-98-67 16:41:00 [facility] [address] [address] Patient Name: MANJIT LUO MR #: [id number] : 1980 Age/Sex: 38/M Req #: [id number] Adm Physician: TONY MAY MD Ordered by: TONY MAY MD Report #: [id number] Location: MED/SURG Room/Bed: [facility] [place] Procedure: [id number] DX/IR CONSULT Exam Date: Exam Time: REPORT STATUS: Signed PROCEDURE: Genitourinary cath eter placement Procedural Personnel Attending physician(s): Umu Mondragon Fellow physician(s): None Resident physician(s): None Advanced practice provider(s): None Pre-procedure diagnosis: Ureteral obstruction Post-proc edure diagnosis: Same Indication: Urinary obstruction Catheter(s) placed bec ause the previous catheter(s) became dislodged within 30 days of placement (QC ): No Additional clinical history: None Complications: No immediate com plications. IMPRESSION: 1. Ultrasound guided access of right renal col lecting system. 2. Antegrade nephrostogram under fluoroscopy showing mild hydr onephrosis and hydroureter. 3. Placement of 7Fr x 26cm internal nephrourete ral stent. 4. Placement of 8.5Fr x 25cm external safety nephrostomy. Plan : Nephrostomy capped. Patient knows to uncap to gravity if develops fevers, chills, increasing flank pain. Continue management per urology. PROCEDURE SUMMARY - Target organ: Unilateral [place] kidney - Image-guided placement of genitour inary catheter(s) - Additional procedure(s): None PROCEDURE DETAILS: Pre-procedure Consent: Informed consent for the procedure including risks, be nefits and alternatives was obtained and time-out was performed prior to the p rocedure. Preparation: The site was prepared and draped using maximal sterile barrier technique including cutaneous antisepsis. Anesthesia/sedation L evel of anesthesia/sedation: Moderate sedation (conscious sedation) Anesthesia /sedation administered by: Independent trained observer under attending superv ision with continuous monitoring of the patient?s level of consciousness and p hysiologic status Total intra-service sedation time (minutes): 30 Right g enitourinary catheter placement Local anesthesia was administered. A needle wa s advanced into a lower pole calyx under ultrasound and fluoroscopy guidance. A wire was passed down the ureter into the bladder, the tract was serially dil ated, and a ureteral stent was placed. A nephrostomy tube was then advanced ov er the wire into the renal collecting system. Contrast injection was performed . Genitourinary catheter placed: 8.5Fr safety nephrostomy, 7Fr internal double J stent. Findings: Patent flow of contrast through stent into bladder. E xternal catheter securement: Non-absorbable suture Additional genitourinary system intervention Genitourinary intervention: None Location of interventi on: Not applicable Device used: Not applicable Description of intervention: Not applicable Post-intervention findings: Not applicable Contrast Cont rast agent: Isovue 300 Contrast volume (mL): 10 Radiation Dose Fluorosc opy time (minutes): 8.2 Reference air kerma (mGy): 76.8 Additional Det ails Additional description of procedure: None Equipment details: None Spe cimens removed: None. A sample was not sent for analysis. Estimated blood loss (mL): Less than 10 Standardized report: SIR_GUCatheterPlacement_v3 Attes tation Signer name: Jose F Ferrer MD I attest that I was present for the entir e procedure. I reviewed the stored images and agree with the report as written . Signed by: Jose F Ferrer MD on 02/15/2019 4:46 PM Dictated By: JOSE F FERRER MD 45 Transc ribed By: TIFFANY on 02/15/191645 COPY TO: TONY MAY MD NEPHRO/URET W IMG/INJ-NEW MPI0896-25-36 16:41:[address] [address] Patient Name: MANJIT LUO MR #: [id number] : 1980 Age/Sex: 38/M Req #: [id number] Adm Physician: TONY MAY MD Ordered by: TONY MAY MD Report #: [id number] Location: MED/SURG Room/Bed: [facility] [place] Procedure: [id number] IR/NE PHRO/URET W IMG/INJ-NEW [facility] Exam Date: Exam Time: REPORT STATUS: Signed PROCEDURE: Genitourinary catheter placement Procedural Personnel Attending physicia n(s): Jose F Ferrer MD Fellow physician(s): None Resident physician(s): None Advanced practice provider(s): None Pre-procedure diagnosis: Ureteral obst ruction Post-procedure diagnosis: Same Indication: Urinary obstruction Cat heter(s) placed because the previous catheter(s) became dislodged within 30 da ys of placement (QCDR): No Additional clinical history: None Complication s: No immediate complications. IMPRESSION: 1. Ultrasound guided access of right renal collecting system. 2. Antegrade nephrostogram under fluoroscopy showing mild hydronephrosis and hydroureter. 3. Placement of 7Fr x 26cm i nternal nephroureteral stent. 4. Placement of 8.5Fr x 25cm external safety nep hrostomy. Plan: Nephrostomy capped. Patient knows to uncap to gravity if develops fevers, chills, increasing flank pain. Continue management per urology. PROCEDURE SUMMARY - Target organ: Unilateral [place] kidney - Image-guided pl acement of genitourinary catheter(s) - Additional procedure(s): None PROC EDURE DETAILS: Pre-procedure Consent: Informed consent for the procedure including risks, benefits and alternatives was obtained and time-out was perfo rmed prior to the procedure. Preparation: The site was prepared and draped usi ng maximal sterile barrier technique including cutaneous antisepsis. Anes thesia/sedation Level of anesthesia/sedation: Moderate sedation (conscious sed ation) Anesthesia/sedation administered by: Independent trained observer under attending supervision with continuous monitoring of the patient?s level of consciousness and physiologic status Total intra-service sedation time (minute s): 30 Right genitourinary catheter placement Local anesthesia was admini stered. A needle was advanced into a lower pole calyx under ultrasound and flu oroscopy guidance. A wire was passed down the ureter into the bladder, the tra ct was serially dilated, and a ureteral stent was placed. A nephrostomy tube w as then advanced over the wire into the renal collecting system. Contrast inje ction was performed. Genitourinary catheter placed: 8.5Fr safety nephrostomy, 7Fr internal double J stent. Findings: Patent flow of contrast through sten t into bladder. External catheter securement: Non-absorbable suture Addit ional genitourinary system intervention Genitourinary intervention: None Loc ation of intervention: Not applicable Device used: Not applicable Descriptio n of intervention: Not applicable Post-intervention findings: Not applicable Contrast Contrast agent: Isovue 300 Contrast volume (mL): 10 Radiat ion Dose Fluoroscopy time (minutes): 8.2 Reference air kerma (mGy): 76.8 Additional Details Additional description of procedure: None Equipment details: None Specimens removed: None. A sample was not sent for analysis. E stimated blood loss (mL): Less than 10 Standardized report: SIR_WarrenPlac ement_v3 Attestation Signer name: Jose F Ferrer MD I attest that I was pr esent for the entire procedure. I reviewed the stored images and agree with e report as written. Signed by: Jose F Ferrer MD on 02/15/2019 4:46 PM Dictated By: JOSE F FERRER MD 45 COPY TO: BLANCA MAY MD US GUIDANCE FOR RUCSXVRFI0847-97-54 16:41:00 [address] [place] [address] Patient Name: MANJIT LUO MR #: [id number] : 1980 Age/Sex: 38/M Req #: [id number] Adm Physician: TONY MAY MD Ordered by: TONY MAY MD Report #: [id number] Location: MED/SURG Room/Bed: [facility] [place] Procedure: [id number] US/US GUIDANCE FOR PROCEDURE Exam Date: 02/15/19 Exam Cm e: 1258 REPORT STATUS: Signed DC OCEDURE: Genitourinary catheter placement Procedural Personnel Attending physician(s): Jose F Ferrer MD Fellow physician(s): None Resident physician(s) : None Advanced practice provider(s): None Pre-procedure diagnosis: Urete ral obstruction Post-procedure diagnosis: Same Indication: Urinary obstructi on Catheter(s) placed because the previous catheter(s) became dislodged within 30 days of placement (QCDR): No Additional clinical history: None Comp lications: No immediate complications. IMPRESSION: 1. Ultrasound guide d access of right renal collecting system. 2. Antegrade nephrostogram under fl uoroscopy showing mild hydronephrosis and hydroureter. 3. Placement of 7Fr x 26cm internal nephroureteral stent. 4. Placement of 8.5Fr x 25cm external sa fety nephrostomy. Plan: Nephrostomy capped. Patient knows to uncap to gr avity if develops fevers, chills, increasing flank pain. Continue managem ent per urology. __ PROCEDURE SUMMARY - Target organ: Unilateral [place] kidney - Image-g uided placement of genitourinary catheter(s) - Additional procedure(s): None PROCEDURE DETAILS: Pre-procedure Consent: Informed consent for the pr ocedure including risks, benefits and alternatives was obtained and time-out w as performed prior to the procedure. Preparation: The site was prepared and dr schuster using maximal sterile barrier technique including cutaneous antisepsis. Anesthesia/sedation Level of anesthesia/sedation: Moderate sedation (consc ious sedation) Anesthesia/sedation administered by: Independent trained observ er under attending supervision with continuous monitoring of the patient?s lev el of consciousness and physiologic status Total intra-service sedation time (minutes): 30 Right genitourinary catheter placement Local anesthesia was administered. A needle was advanced into a lower pole calyx under ultrasound and fluoroscopy guidance. A wire was passed down the ureter into the bladder, the tract was serially dilated, and a ureteral stent was placed. A nephrostomy tube was then advanced over the wire into the renal collecting system. Contr ast injection was performed. Genitourinary catheter placed: 8.5Fr safety nephr ostomy, 7Fr internal double J stent. Findings: Patent flow of contrast thro ugh stent into bladder. External catheter securement: Non-absorbable suture Additional genitourinary system intervention Genitourinary intervention: No ne Location of intervention: Not applicable Device used: Not applicable De scription of intervention: Not applicable Post-intervention findings: Not appl icable Contrast Contrast agent: Isovue 300 Contrast volume (mL): 10 Radiation Dose Fluoroscopy time (minutes): 8.2 Reference air kerma (mGy): 76.8 Additional Details Additional description of procedure: None Eq uipment details: None Specimens removed: None. A sample was not sent for sherrie sis. Estimated blood loss (mL): Less than 10 Standardized report: _Anuj eterPlacement_v3 Attestation Signer name: Jose F Ferrer MD I attest that I was present for the entire procedure. I reviewed the stored images and agree with the report as written. Signed by: Jose F Ferrer MD on 02/15/2019 4:46 PM Dictated By: JOSE F FERRER MD 45 Transcribed By: TIFFANY on 02/15/191645 COPY TO: TONY CESPEDES MD Prothrombin Dbyj6675-90-28 16:06:00* Test Item Value Reference Range Interpretation Comments Prothrombin Time (test code = 5902-2) 14.4 11.9-14.5 [facility] HospitalProthromb Time International Ratio 2019-02-15 16:06:00* Test Item Value Reference Range Interpretation Comments Prothromb Time International Ratio (test code = 6301-6) 1.07 Oral Anticoagulant Therapy INR Values:1. Low Intensity Therapy 1.5 - 2.02 . Moderate Intensity Therapy 2.0 - 3.03. High Intensity Therapy(1) 2.5 - 3. 54. High Intensity Therapy(2) 3.0 - 4.05. Panic Value INR > 5.0 [facility] HospitalActivated Partial Thromboplast Time 2019-02-15 16:06:00* Test Item Value Reference Range Interpretation Comments Activated Partial Thromboplast Time (test code = 01832-7) 32.7 23.8-35.5 [facility] HospitalProthrombin Aozl0088-82-61 16:06:00* Test Item Value Reference Range Interpretation Comments Prothrombin Time (test code = 5902-2) 14.4 11.9-14.5 [facility] HospitalProthromb Time International Ratio 2019-02-15 16:06:00* Test Item Value Reference Range Interpretation Comments Prothromb Time International Ratio (test code = 6301-6) 1.07 Oral Anticoagulant Therapy INR Values:1. Low Intensity Therapy 1.5 - 2.02 . Moderate Intensity Therapy 2.0 - 3.03. High Intensity Therapy(1) 2.5 - 3. 54. High Intensity Therapy(2) 3.0 - 4.05. Panic Value INR > 5.0 [facility] HospitalAct[facility] Partial Thromboplast Time 2019-02-15 16:06:00* Test Item Value Reference Range Interpretation Comments Activated Partial Thromboplast Time (test code = 27421-9) 32.7 23.8-35.5 [facility] HospitalAct[facility] Partial Thromboplast Time 2019-02-15 16:06:00* Test Item Value Reference Range Interpretation Comments Activated Partial Thromboplast Time (test code = 73033-4) 32.7 23.8-35.5 [facility]Act[facility] Partial Thromboplast Time 2019-02-15 16:06:00* Test Item Value Reference Range Interpretation Comments Activated Partial Thromboplast Time (test code = 43993-0) 32.7 23.8-35.5 [facility]Act[facility] Partial Thromboplast Time 2019-02-15 16:06:00* Test Item Value Reference Range Interpretation Comments Activated Partial Thromboplast Time (test code = 16186-1) 32.7 23.8-35.5 [facility] HospitalActivated partial thromboplastin time (aPTT) in platelet poor plasma by coagulation pvkmx3465-34-87 14:23:00* Test Item Value Reference Range Interpretation Comments Activated Partial Thromboplast Time (test code = 18504-6) 32.7 23.8-35.5 [facility] HospitalRE[facility] SCAN W/ZEDBW8107-05-97 18:29:00 [address] [place] [address] Patient Name: MANJIT LUO MR #: [id number] : 1980 Age/Sex: 38/M Req #: [id number] Adm Physician: Ordered by: TONY MAY MD Report #: [id number] Location: [place] Room/Bed: Procedure: [id number] NM/RE NAL SCAN W/LASIX Exam Date: 01/14/19 Exam Time: 1400 REPORT STATUS: Signed Renal Scan with Lasix Washout Clinical information: N18: Chronic kidney disease Comparison: Most recent prior renal scan 10/21/2018 Technique: Following in travenous administration of 10 mCi of Tc-99m MAG3, dynamic images of the kidne ys in the posterior projection were obtained through 40 minutes. Lasix 40 mg was administered intravenously at 10 minutes post injection of the tracer. Report: Left kidney: Perfusion of the left kidney is prompt. The kidney has an elongated reniform shape with mild thinning of the renal cortex. Extra ction of tracer from the blood pool is decreased. Clearance of tracer from th e renal parenchyma begins promptly but is not complete by the end of the study . The pelvicalyceal system is mildly dilated. Increased pooling of tracer is seen within the pelvicalyceal system. No net drainage of tracer from the p elvicalyceal system is prior to administration of Lasix. Washout of tracer fr om the pelvicalyceal system following administration of Lasix is adequate with a T-1/2 of 10 minutes (normal less than 15 minutes). No significant stasis of tracer is seen within the left ureter. Right kidney: Perfusion to the right kidney is prompt. The right kidney has distorted reniform shape with marked thinning of the renal cortex. The kidney is not as elongated as the left ki dney and the renal cortex is more thinned than the renal cortex of the left ki dney. Extraction of tracer by the renal parenchyma is decreased. Clearance of tracer from the renal parenchyma begins promptly but is not complete by the e nd of the study. The pelvicalyceal system is mildly dilated. Increased pooli ng of tracer is seen within the pelvicalyceal system. No net drainage of trac er from the pelvicalyceal system is seen prior to administration of Lasix. No washout of tracer from the pelvicalyceal system is seen following administrat ion of Lasix. The T-1/2 for Lasix washout of the pelvicalyceal system is unde fined as there is no downward slope of the time-activity curve. Differe ntial renal function: The left kidney contributes 74% of total renal function and the right kidney contributes 26% (normal 43-57%), previously left 71% and right 29%. Impression: 1. 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 Signif icant medical renal disease is also present. Moderate hydronephrosis is prese nt, however, physiologically significant obstruction at the UPJ is not suspect ed although the T-1/2 for Lasix washout is at the upper range of normal. The a ppearance of the kidney and the differential function are unchanged compared t o the prior renal scan with Lasix of 10/21/2018. The drainage and washout yinka sampson are also unchanged. 2. 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 This accounts for the decreased differential renal function of 26%. S Ignificant medical renal disease is also present. Moderately severe hydroneph rosis is present and physiologically significant obstruction of the UPJ is pre sent. The appearance of the kidney and the differential renal function are u nchanged compared to the prior study. The renogram is also unchanged. Signed by: Dr. Yuly Peralta M.D. on 01/14/2019 6:48 PM Dictated By: YULY PERALTA MD 47 Transcribed By: TIFFANY on 01/14/191847 COPY TO: TONY MAY MD ABDOMEN 2 CYLK9516-42-83 11:34:00 [place] [address] Patient Name: MANJIT LUO MR #: [id number] : 1980 Age/Sex: 38/M Req #: [id number] Adm Physician: Ordered by: LUZ MARINA CURRIE MD Report #: [id number] Location: ER Room/Bed: Procedure: 002 2 DX/ABDOMEN 2 VIEW Exam Date: 11/11/18 Exam Time: 1 105 REPORT STATUS: Signed Abd omen, 2 views. History: Fever, nausea and vomiting. Findings: Air i s scattered throughout nondilated small and large bowel. There are no air-flui d levels. There is no evidence of free air. Cholecystectomy clips are present in the right upper quadrant. There are no masses or abnormal calcifications. The osseous structures are intact. IMPRESSION: Nonobstructive bowel ga s pattern. Signed by: Jonathan Pete on 11/11/2018 11:35 AM Dictated B y: JONATHAN PETE MD 113 Transcribed By: TIFFANY on 11/11/18 1135 COPY TO: LUZ MARINA CURRIE MD Differential Total Cells Nzkrgon4325-25-56 11:23:00* Test Item Value Reference Range Interpretation Comments Differential Total Cells Counted (test code = Differen tial Total Cells Counted) 100 [facility] HospitalNeutrophils % (Manual)2018-11-11 11:23:00 * Test Item Value Reference Range Interpretation Comments Neutrophils % (Manual) (test code = 63469-1) 74 40-74 [facility] HospitalLymphocytes % (Manual)2018-11-11 11:23:00 * Test Item Value Reference Range Interpretation Comments Lymphocytes % (Manual) (test code = 737-7) 19 19-48 [facility] HospitalMonocytes % (Manual)2018-11-11 11:23:00* Test Item Value Reference Range Interpretation Comments Monocytes % (Manual) (test code = 744-3) 5 3.4-9.0 [facility] HospitalEosinophils % (Manual)2018-11-11 11:23:00 * Test Item Value Reference Range Interpretation Comments Eosinophils % (Manual) (test code = 714-6) 2 0-7 [facility] HospitalPlatelet Hzozxsoa7964-34-14 11:23:00* Test Item Value Reference Range Interpretation Comments Platelet Estimate (test code = 82677-3) MODERATELY DECREASED [facility] HospitalPlatelet Morphology Srvmyrf9199-52-07 11:23:00* Test Item Value Reference Range Interpretation Comments Platelet Morphology Comment (test code = 62866-8) FEW LARGE NO PLT CLUMPSGonzales Memorial HospitalRed Cell Morphology Comment 2018-11-11 11:23:00* Test Item Value Reference Range Interpretation Comments Red Cell Morphology Comment (test code = 6742-1) NORMAL [facility] HospitalDifferential Total Cells Counted 2018-11-11 11:23:00* Test Item Value Reference Range Interpretation Comments Differential Total Cells Counted (test code = Differomar tial Total Cells Counted) 100 [facility] HospitalNeutrophils % (Manual)2018-11-11 11:23:00 * Test Item Value Reference Range Interpretation Comments Neutrophils % (Manual) (test code = 67536-0) 74 40-74 [facility] HospitalLymphocytes % (Manual)2018-11-11 11:23:00 * Test Item Value Reference Range Interpretation Comments Lymphocytes % (Manual) (test code = 737-7) 19 19-48 [facility] HospitalMonocytes % (Manual)2018-11-11 11:23:00* Test Item Value Reference Range Interpretation Comments Monocytes % (Manual) (test code = 744-3) 5 3.4-9.0 [facility] HospitalEosinophils % (Manual)2018-11-11 11:23:00 * Test Item Value Reference Range Interpretation Comments Eosinophils % (Manual) (test code = 714-6) 2 0-7 [facility] HospitalPlatelet Avrdiibu3011-76-79 11:23:00* Test Item Value Reference Range Interpretation Comments Platelet Estimate (test code = 67743-2) MODERATELY DECREASED [facility] HospitalPlatelet Morphology Lbgzcth1879-39-20 11:23:00* Test Item Value Reference Range Interpretation Comments Platelet Morphology Comment (test code = 68897-7) FEW LARGE NO PLT [facility]PSCHI [facility]Red [facility] Morphology Comment 2018-11-11 11:23:00* Test Item Value Reference Range Interpretation Comments Red Cell Morphology Comment (test code = 6742-1) NORMAL [facility] HospitalDifferential Total Cells Counted 2018-11-11 11:23:00* Test Item Value Reference Range Interpretation Comments Differential Total Cells Counted (test code = Differen tial Total Cells Counted) 100 [facility] HospitalNeutrophils % (Manual)2018-11-11 11:23:00 * Test Item Value Reference Range Interpretation Comments Neutrophils % (Manual) (test code = 18909-3) 74 40-74 [facility] HospitalLymphocytes % (Manual)2018-11-11 11:23:00 * Test Item Value Reference Range Interpretation Comments Lymphocytes % (Manual) (test code = 737-7) 19 19-48 [facility] HospitalMonocytes % (Manual)2018-11-11 11:23:00* Test Item Value Reference Range Interpretation Comments Monocytes % (Manual) (test code = 744-3) 5 3.4-9.0 [facility] HospitalEosinophils % (Manual)2018-11-11 11:23:00 * Test Item Value Reference Range Interpretation Comments Eosinophils % (Manual) (test code = 714-6) 2 0-7 [facility] HospitalPlatelet Bbnembyg4041-76-09 11:23:00* Test Item Value Reference Range Interpretation Comments Platelet Estimate (test code = 44281-2) MODERATELY DECREASED [facility] HospitalPlatelet Morphology Geumfcs0188-49-46 11:23:00* Test Item Value Reference Range Interpretation Comments Platelet Morphology Comment (test code = 06701-3) FEW LARGE NO PLT CLUMPSCHI [facility] HospitalRed Cell Morphology Comment 2018-11-11 11:23:00* Test Item Value Reference Range Interpretation Comments Red Cell Morphology Comment (test code = 6742-1) NORMAL [facility] HospitalDifferential Total Cells Counted 2018-11-11 11:23:00* Test Item Value Reference Range Interpretation Comments Differential Total Cells Counted (test code = Differen tial Total Cells Counted) 100 [facility] HospitalNeutrophils % (Manual)2018-11-11 11:23:00 * Test Item Value Reference Range Interpretation Comments Neutrophils % (Manual) (test code = 17372-0) 74 40-74 [facility] HospitalLymphocytes % (Manual)2018-11-11 11:23:00 * Test Item Value Reference Range Interpretation Comments Lymphocytes % (Manual) (test code = 737-7) 19 19-48 [facility] HospitalMonocytes % (Manual)2018-11-11 11:23:00* Test Item Value Reference Range Interpretation Comments Monocytes % (Manual) (test code = 744-3) 5 3.4-9.0 [facility] HospitalEosinophils % (Manual)2018-11-11 11:23:00 * Test Item Value Reference Range Interpretation Comments Eosinophils % (Manual) (test code = 714-6) 2 0-7 [facility] HospitalPlatelet Thoybejq4205-65-30 11:23:00* Test Item Value Reference Range Interpretation Comments Platelet Estimate (test code = 71126-9) MODERATELY DECREASED [facility] HospitalPlatelet Morphology Pmecqda5981-89-64 11:23:00* Test Item Value Reference Range Interpretation Comments Platelet Morphology Comment (test code = 70742-1) FEW LARGE NO PLT CLUMPSGonzales Memorial HospitalRed Cell Morphology Comment 2018-11-11 11:23:00* Test Item Value Reference Range Interpretation Comments Red Cell Morphology Comment (test code = 6742-1) NORMAL [facility] HospitalDifferential Total Cells Counted 2018-11-11 11:23:00* Test Item Value Reference Range Interpretation Comments Differential Total Cells Counted (test code = Differen tial Total Cells Counted) 100 [facility] HospitalNeutrophils % (Manual)2018-11-11 11:23:00 * Test Item Value Reference Range Interpretation Comments Neutrophils % (Manual) (test code = 49917-1) 74 40-74 [facility] HospitalLymphocytes % (Manual)2018-11-11 11:23:00 * Test Item Value Reference Range Interpretation Comments Lymphocytes % (Manual) (test code = 737-7) [facility] ([facility])2018-11-11 11:23:00* Test Item Value Reference Range Interpretation Comments Monocytes % (Manual) (test code = 744-3) 5 3.4-9.0 [facility] HospitalEosinophils % (Manual)2018-11-11 11:23:00 * Test Item Value Reference Range Interpretation Comments Eosinophils % (Manual) (test code = 714-6) 2 0-7 [facility] HospitalPlatelet Gtaymuhm6582-49-08 11:23:00* Test Item Value Reference Range Interpretation Comments Platelet Estimate (test code = 64367-0) MODERATELY DECREASED [facility] HospitalPlatelet Morphology Wbptgho6751-51-93 11:23:00* Test Item Value Reference Range Interpretation Comments Platelet Morphology Comment (test code = 78916-5) FEW LARGE NO PLT CLUMPSGonzales Memorial HospitalRed Cell Morphology Comment 2018-11-11 11:23:00* Test Item Value Reference Range Interpretation Comments Red Cell Morphology Comment (test code = 6742-1) NORMAL [facility] HospitalDifferential Total Cells Counted 2018-11-11 11:23:00* Test Item Value Reference Range Interpretation Comments Differential Total Cells Counted (test code = Differomar tial Total Cells Counted) 100 [facility] HospitalNeutrophils % (Manual)2018-11-11 11:23:00 * Test Item Value Reference Range Interpretation Comments Neutrophils % (Manual) (test code = 59826-0) 74 40-74 [facility] HospitalLymphocytes % (Manual)2018-11-11 11:23:00 * Test Item Value Reference Range Interpretation Comments Lymphocytes % (Manual) (test code = 737-7) 19 [facility] HospitalMonocytes % (Manual)2018-11-11 11:23:00* Test Item Value Reference Range Interpretation Comments Monocytes % (Manual) (test code = 744-3) 5 3.4-9.0 [facility] HospitalEosinophils % (Manual)2018-11-11 11:23:00 * Test Item Value Reference Range Interpretation Comments Eosinophils % (Manual) (test code = 714-6) 2 0-7 [facility] HospitalPlatelet Nrdwruzg6867-14-26 11:23:00* Test Item Value Reference Range Interpretation Comments Platelet Estimate (test code = 83261-7) MODERATELY DECREASED [facility] HospitalPlatelet Morphology Yokyief6589-89-92 11:23:00* Test Item Value Reference Range Interpretation Comments Platelet Morphology Comment (test code = 88209-6) FEW LARGE NO PLT CLUMPSGonzales Memorial HospitalRed Cell Morphology Comment 2018-11-11 11:23:00* Test Item Value Reference Range Interpretation Comments Red Cell Morphology Comment (test code = 6742-1) NORMAL [facility] HospitalUrine MSG2739-84-10 08:27:00* Test Item Value Reference Range Interpretation Comments Urine WBC (test code = 5821-4) 21-50 0-5 H [facility] HospitalUrine ZDF9286-79-06 08:27:00* Test Item Value Reference Range Interpretation Comments Urine RBC (test code = 30860-9) 21-50 0-5 H [facility] HospitalUrine Ktcbxbfm1318-49-60 08:27:00* Test Item Value Reference Range Interpretation Comments Urine Bacteria (test code = 64651-1) RARE NONE [facility] HospitalUrine Epithelial Pongb2093-91-33 08:27:00 * Test Item Value Reference Range Interpretation Comments Urine Epithelial Cells (test code = 83307-5) FEW NONE [facility] HospitalUrine Scoqz0613-24-16 08:20:00* Test Item Value Reference Range Interpretation Comments Urine Color (test code = 5778-6) YELLOW YELLOW [facility] HospitalUrine Hupxjeb3606-24-36 08:20:00* Test Item Value Reference Range Interpretation Comments Urine Clarity (test code = 60771-6) SL CLOUDY CLEAR H [facility] HospitalUrine Specific Ofegbhb3036-55-09 08:20:00 * Test Item Value Reference Range Interpretation Comments Urine Specific [place] (test code = 5811-5) 1.025 1.010-1.02 5 [facility] HospitalUrine eY6672-11-69 08:20:00* Test Item Value Reference Range Interpretation Comments Urine pH (test code = 25745-2) 6 5-7 [facility] HospitalUrine Leukocyte Euwdotig7815-53-98 08:20:00* Test Item Value Reference Range Interpretation Comments Urine Leukocyte Esterase (test code = 94488-6) TRACE NEGATIV E H [facility] Wvzipia2999-08-21 08:20:00* Test Item Value Reference Range Interpretation Comments Urine Nitrite (test code = 03361-9) NEGATIVE NEGATIVE [facility] Ldmjgjx3732-07-93 08:20:00* Test Item Value Reference Range Interpretation Comments Urine Protein (test code = 23102-9) 3+ NEGATIVE H [facility] Glucose (UA)2018-11-11 08:20:00* Test Item Value Reference Range Interpretation Comments Urine Glucose (UA) (test code = 15902-1) 1+ NEGATIVE H [facility] HospitalUrine Naemfcx8413-73-17 08:20:00* Test Item Value Reference Range Interpretation Comments Urine Ketones (test code = 45484-5) NEGATIVE NEGATIVE [facility] Luktijtbmwip7698-32-43 08:20:00* Test Item Value Reference Range Interpretation Comments Urine Urobilinogen (test code = 44408-1) 0.2 0.2-1 [facility] HospitalUrine Fnvbezbkb9787-43-45 08:20:00* Test Item Value Reference Range Interpretation Comments Urine Bilirubin (test code = 1977-8) NEGATIVE NEGATIVE [facility] Teyxk7610-30-91 08:20:00* Test Item Value Reference Range Interpretation Comments Urine Blood (test code = 22353-2) 3+ [facility]GATIVE [facility] Shswc6439-18-51 08:04:00* Test Item Value Reference Range Interpretation Comments Sodium Level (test code = 2951-2) 137 136-145 [facility] HospitalPotassium Obvkw0031-94-24 08:04:00* Test Item Value Reference Range Interpretation Comments Potassium Level (test code = 2823-3) 4.8 3.5-5.1 [facility] HospitalChloride Vhxiu8254-38-35 08:04:00* Test Item Value Reference Range Interpretation Comments Chloride Level (test code = 2075-0) 109 98-107 H [facility] HospitalCarbon Dioxide Jgtcl1117-27-96 08:04:00* Test Item Value Reference Range Interpretation Comments Carbon Dioxide Level (test code = 2028-9) 18 22-29 L [facility] HospitalAnion Xud7551-63-91 08:04:00* Test Item Value Reference Range Interpretation Comments Anion Gap (test code = 13668-2) 14.8 8-16 [facility] HospitalBlood Urea Cvoahkex8475-36-74 08:04:00* Test Item Value Reference Range Interpretation Comments Blood Urea Nitrogen (test code = 3094-0) 35 7-26 H [facility] HospitalCreatinine2019-09-19 08:04:00* Test Item Value Reference Range Interpretation Comments Creatinine (test code = 2160-0) 3.89 0.72-1.25 H [facility] HospitalBUN/Creatinine Xcxnu2363-02-88 08:04:00* Test Item Value Reference Range Interpretation Comments BUN/Creatinine Ratio (test code = 3097-3) 9 6-25 [facility] HospitalEstimat Glomerular Filtration Rate 2018-11-11 08:04:00* Test Item Value Reference Range Interpretation Comments Estimat Glomerular Filtration Rate (test code = 557502786) 17 >60 L Ranges were taken from the National Kidney Disease Education Program and the [facility] Foundation literature.Reference ranges:60 or greater: Fvmixg19-66 ( for 3 consecutive months): Chronic kidney disease 15 or less: Kidney failureGonzales Memorial HospitalGlucose Qkgur0393-85-09 08:04:00* Test Item Value Reference Range Interpretation Comments Glucose Level (test code = FUK0827) 146 74-118 H [facility] HospitalCalcium Ecsdn7719-77-69 08:04:00* Test Item Value Reference Range Interpretation Comments Calcium Level (test code = 64062-5) 9.0 8.4-10.2 [facility] HospitalTotal Japolhoag6591-44-88 08:04:00* Test Item Value Reference Range Interpretation Comments Total Bilirubin (test code = 1975-2) 0.6 0.2-1.2 [facility] HospitalAspartate Amino Transf (AST/SGOT) 2018-11-11 08:04:00* Test Item Value Reference Range Interpretation Comments Aspartate Amino Transf (AST/SGOT) (test code = Aspartate Amino Transf (AST/SGOT)) 14 5-34 [facility] HospitalAlanine Aminotransferase (ALT/SGPT) 2018-11-11 08:04:00* Test Item Value Reference Range Interpretation Comments Alanine Aminotransferase (ALT/SGPT) (test code = 1742-6) 9 0-55 [facility] HospitalTotal Ylssphs0688-74-64 08:04:00* Test Item Value Reference Range Interpretation Comments Total Protein (test code = 2885-2) 7.9 6.5-8.1 [facility] HospitalAlbumin2019-09-19 08:04:00* Test Item Value Reference Range Interpretation Comments Albumin (test code = 1751-7) 3.2 3.5-5.0 L [facility] HospitalGlobulin2019-09-19 08:04:00* Test Item Value Reference Range Interpretation Comments Globulin (test code = 48198-2) 4.7 2.3-3.5 H [facility] HospitalAlbumin/Globulin Zfnvk1164-74-83 08:04:00 * Test Item Value Reference Range Interpretation Comments Albumin/Globulin Ratio (test code = 1759-0) 0.7 0.8-2.0 L [facility] HospitalAlkaline Jxheildsqdi6762-93-73 08:04:00* Test Item Value Reference Range Interpretation Comments Alkaline Phosphatase (test code = 6768-6) 202 40-150 H [facility] HospitalTotal Jndmprlvo7533-58-69 08:04:00* Test Item Value Reference Range Interpretation Comments Total Bilirubin (test code = 1975-2) 0.6 0.2-1.2 [facility] HospitalAspartate Amino Transf (AST/SGOT) 2018-11-11 08:04:00* Test Item Value Reference Range Interpretation Comments Aspartate Amino Transf (AST/SGOT) (test code = Aspartate Amino Transf (AST/SGOT)) 14 [facility] HospitalAlanine Aminotransferase (ALT/SGPT) 2018-11-11 08:04:00* Test Item Value Reference Range Interpretation Comments Alanine Aminotransferase (ALT/SGPT) (test code = 1742-6) 9 0-55 [facility] Kbbseek3568-71-64 08:04:00* Test Item Value Reference Range Interpretation Comments Total Protein (test code = 2885-2) 7.9 6.5-8.1 [facility] HospitalGlobulin2019-09-19 08:04:00* Test Item Value Reference Range Interpretation Comments Globulin (test code = 58480-2) 4.7 2.3-3.5 H [facility] HospitalAlbumin/Globulin Vxstz9776-39-53 08:04:00 * Test Item Value Reference Range Interpretation Comments Albumin/Globulin Ratio (test code = 1759-0) 0.7 0.8-2.0 L [facility] HospitalAlkaline Zncowunyjvs9691-01-25 08:04:00* Test Item Value Reference Range Interpretation Comments Alkaline Phosphatase (test code = 6768-6) 202 40-150 H [facility] HospitalTotal Zlzpcgbmn3519-38-06 08:04:00* Test Item Value Reference Range Interpretation Comments Total Bilirubin (test code = 1975-2) 0.6 0.2-1.2 [facility] HospitalAspartate Amino Transf (AST/SGOT) 2018-11-11 08:04:00* Test Item Value Reference Range Interpretation Comments Aspartate Amino Transf (AST/SGOT) (test code = Aspartate Amino Transf (AST/SGOT)) 14 34 [facility] HospitalAlanine Aminotransferase (ALT/SGPT) 2018-11-11 08:04:00* Test Item Value Reference Range Interpretation Comments Alanine Aminotransferase (ALT/SGPT) (test code = 1742-6) 9 0-55 [facility] HospitalTotal Wvspcyv2089-78-85 08:04:00* Test Item Value Reference Range Interpretation Comments Total Protein (test code = 2885-2) 7.9 6.5-8.1 [facility] HospitalGlobulin2019-09-19 08:04:00* Test Item Value Reference Range Interpretation Comments Globulin (test code = 88398-1) 4.7 2.3-3.5 H [facility] HospitalAlbumin/Globulin Wbffa2521-85-71 08:04:00 * Test Item Value Reference Range Interpretation Comments Albumin/Globulin Ratio (test code = 1759-0) 0.7 0.8-2.0 L [facility] HospitalAlkaline Ozojnxdsjmf3027-90-94 08:04:00* Test Item Value Reference Range Interpretation Comments Alkaline Phosphatase (test code = 6768-6) 202 40-150 H [facility] HospitalWhite Blood Lnvgv1610-83-59 07:49:00* Test Item Value Reference Range Interpretation Comments White Blood Count (test code = 6690-2) 6.09 4.8-10.8 [facility] HospitalRed Blood Jhiqo8742-85-02 07:49:00* Test Item Value Reference Range Interpretation Comments Red Blood Count (test code = 789-8) 4.56 4.3-5.7 [facility] HospitalHemoglobin2019-09-19 07:49:00* Test Item Value Reference Range Interpretation Comments Hemoglobin (test code = 52493-4) 12.7 14.0-18.0 L [facility] HospitalHematocrit2019-09-19 07:49:00* Test Item Value Reference Range Interpretation Comments Hematocrit (test code = 4544-3) 38.6 38.2-49.6 [facility] HospitalMean Corpuscular Tuyvju6707-90-94 07:49:00* Test Item Value Reference Range Interpretation Comments Mean Corpuscular Volume (test code = 787-2) 84.6 81-99 [facility] HospitalMean Corpuscular Upnmxqdhyv7570-89-18 07:49:00* Test Item Value Reference Range Interpretation Comments Mean Corpuscular Hemoglobin (test code = 785-6) 27.9 28-32 L [facility] HospitalMean Corpuscular Hemoglobin Concent 2018-11-11 07:49:00* Test Item Value Reference Range Interpretation Comments Mean Corpuscular Hemoglobin Concent (test code = 786-4) 32.9 31-35 [facility] HospitalRed Cell Distribution Urkfz8608-46-06 07:49:00* Test Item Value Reference Range Interpretation Comments Red Cell Distribution Width (test code = 11093-2) 15.5 11.7 -14.4 H [facility] HospitalPlatelet Svgjl8816-39-42 07:49:00* Test Item Value Reference Range Interpretation Comments Platelet Count (test code = 777-3) 140 140-360 [facility] HospitalNeutrophils (%) (Auto)2018-11-11 07:49:00 * Test Item Value Reference Range Interpretation Comments Neutrophils (%) (Auto) (test code = 19983-2) 74.1 38.7-80.0 [facility] HospitalLymphocytes (%) (Auto)2018-11-11 07:49:00 * Test Item Value Reference Range Interpretation Comments Lymphocytes (%) (Auto) (test code = 736-9) 18.2 18.0-39.1 [facility] HospitalMonocytes (%) (Auto)2018-11-11 07:49:00* Test Item Value Reference Range Interpretation Comments Monocytes (%) (Auto) (test code = 5905-5) 4.9 4.4-11.3 [facility] HospitalEosinophils (%) (Auto)2018-11-11 07:49:00 * Test Item Value Reference Range Interpretation Comments Eosinophils (%) (Auto) (test code = 713-8) 2.0 0.0-6.0 [facility] HospitalBasophils (%) (Auto)2018-11-11 07:49:00* Test Item Value Reference Range Interpretation Comments Basophils (%) (Auto) (test code = 706-2) 0.3 0.0-1.0 [facility] HospitalIM GRANULOCYTES %2018-11-11 07:49:00* Test Item Value Reference Range Interpretation Comments IM GRANULOCYTES % (test code = IM GRANULOCYTES %) 0.5 0.0- 1.0 [facility] HospitalNeutrophils # (Auto)2018-11-11 07:49:00* Test Item Value Reference Range Interpretation Comments Neutrophils # (Auto) (test code = 751-8) 4.5 2.1-6.9 [facility] HospitalLymphocytes # (Auto)2018-11-11 07:49:00* Test Item Value Reference Range Interpretation Comments Lymphocytes # (Auto) (test code = 81687-0) 1.1 1.0-3.2 [facility] HospitalMonocytes # (Auto)2018-11-11 07:49:00* Test Item Value Reference Range Interpretation Comments Monocytes # (Auto) (test code = 742-7) 0.3 0.2-0.8 [facility] HospitalEosinophils # (Auto)2018-11-11 07:49:00* Test Item Value Reference Range Interpretation Comments Eosinophils # (Auto) (test code = 711-2) 0.1 0.0-0.4 [facility] HospitalBasophils # (Auto)2018-11-11 07:49:00* Test Item Value Reference Range Interpretation Comments Basophils # (Auto) (test code = 704-7) 0.0 0.0-0.1 [facility] HospitalAbsolute Immature Granulocyte (auto 2018-11-11 07:49:00* Test Item Value Reference Range Interpretation Comments Absolute Immature Granulocyte (auto (shin t code = Absolute Immature Granulocyte (auto) 0.03 0-0.1 [facility] HospitalFluoroscopic procedure less than one hour pdgyclyx7303-02-72 07:22:00* Test Item Value Reference Range Interpretation Comments Differential Total Cells Counted (test code = Differen tial Total Cells Counted) 100 [facility] HospitalManual blood neutrophils/100 leukocytes 2018-11-11 07:22:00* Test Item Value Reference Range Interpretation Comments Neutrophils % (Manual) (test code = 22454-5) 74 40-74 [facility] blood lymphocytes/100 leukocytes 2018-11-11 07:22:00* Test Item Value Reference Range Interpretation Comments Lymphocytes % (Manual) (test code = 737-7) 19 19-48 [facility] blood monocytes/100 leukocytes 2018-11-11 07:22:00* Test Item Value Reference Range Interpretation Comments Monocytes % (Manual) (test code = 744-3) 5 3.4-9.0 [facility] blood eosinophil count as percentage of total yagfzvanhc7247-86-22 07:22:00* Test Item Value Reference Range Interpretation Comments Eosinophils % (Manual) (test code = 714-6) 2 0-7 [facility] HospitalBlood platelets count by estimate (number/volume)2018-11-11 07:22:00* Test Item Value Reference Range Interpretation Comments Platelet Estimate (test code = 83481-6) MODERATELY DECREASED [facility] HospitalPlatelet tkgfftkfpq6835-25-44 07:22:00* Test Item Value Reference Range Interpretation Comments Platelet Morphology Comment (test code = 13685-7) FEW LARGE NO PLT CLUMPSGonzales Memorial HospitalRB fbepmdolop1173-40-06 07:22:00* Test Item Value Reference Range Interpretation Comments Red Cell Morphology Comment (test code = 6742-1) NORMAL [facility] Imcgdlg1803-71-85 07:37:00* Test Item Value Reference Range Interpretation Comments Bedside Glucose (test code = 18499-5) 160 70-120 H Meter ID: [id number] Glucose 2018-11-08 07:37:00* Test Item Value Reference Range Interpretation Comments Bedside Glucose (test code = 18758-5) 160 70-120 H Meter ID: [id number] Memorial HospitalDifferential Total Cells Lmffzss7286-07-25 06:23:00* Test Item Value Reference Range Interpretation Comments Differential Total Cells Counted (test code = Brian pro Total Cells Counted) 100 [facility] HospitalNeutrophils % (Manual)2018-11-08 06:23:00 * Test Item Value Reference Range Interpretation Comments Neutrophils % (Manual) (test code = 83224-5) 71 40-74 [facility] HospitalLymphocytes % (Manual)2018-11-08 06:23:00 * Test Item Value Reference Range Interpretation Comments Lymphocytes % (Manual) (test code = 737-7) 17 19-48 L [facility] HospitalMonocytes % (Manual)2018-11-08 06:23:00* Test Item Value Reference Range Interpretation Comments Monocytes % (Manual) (test code = 744-3) 9 3.4-9.0 [facility] HospitalEosinophils % (Manual)2018-11-08 06:23:00 * Test Item Value Reference Range Interpretation Comments Eosinophils % (Manual) (test code = 714-6) 3 0-7 [facility] HospitalPlatelet Usdjgbfo6980-02-49 06:23:00* Test Item Value Reference Range Interpretation Comments Platelet Estimate (test code = 49850-1) MARKEDLY INCREASED [facility] HospitalPlatelet Morphology Devjavw5496-42-15 06:23:00* Test Item Value Reference Range Interpretation Comments Platelet Morphology Comment (test code = 81309-1) FEW LARGE [facility] HospitalRed Cell Morphology Nsylupz5764-94-96 06:23:00* Test Item Value Reference Range Interpretation Comments Red Cell Morphology Comment (test code = 6742-1) [facility]odium Qhzdl6761-99-88 05:37:00* Test Item Value Reference Range Interpretation Comments Sodium Level (test code = 2951-2) 135 136-145 L [facility] HospitalPotassium Ictls8168-76-65 05:37:00* Test Item Value Reference Range Interpretation Comments Potassium Level (test code = 2823-3) 4.6 3.5-5.1 [facility] HospitalChloride Cckxt5989-04-69 05:37:00* Test Item Value Reference Range Interpretation Comments Chloride Level (test code = 2075-0) 106 98-107 [facility] HospitalCarbon Dioxide Ckcfe1188-84-94 05:37:00* Test Item Value Reference Range Interpretation Comments Carbon Dioxide Level (test code = 2028-9) 19 22-29 L [facility] HospitalAnion Jyq0181-10-69 05:37:00* Test Item Value Reference Range Interpretation Comments Anion Gap (test code = 47580-1) 14.6 8-16 [facility] HospitalBlood Urea Hezsbbqv7408-73-86 05:37:00* Test Item Value Reference Range Interpretation Comments Blood Urea Nitrogen (test code = 3094-0) 30 7-26 H [facility] HospitalCreatinine2019-09-16 05:37:00* Test Item Value Reference Range Interpretation Comments Creatinine (test code = 2160-0) 3.35 0.72-1.25 H [facility] HospitalBUN/Creatinine Sqanc8550-25-57 05:37:00* Test Item Value Reference Range Interpretation Comments BUN/Creatinine Ratio (test code = 3097-3) 9 6-25 [facility] HospitalEstimat Glomerular Filtration Rate 2018-11-08 05:37:00* Test Item Value Reference Range Interpretation Comments Estimat Glomerular Filtration Rate (test code = 183605609) 21 >60 L Ranges were taken from the National Kidney Disease Education Program and the [facility] literature.Reference ranges:60 or greater: Mgmhmb87-34 ( for 3 consecutive months): Chronic kidney disease 15 or less: Kidney failureGonzales Memorial HospitalGlucose Tzvdc8669-76-81 05:37:00* Test Item Value Reference Range Interpretation Comments Glucose Level (test code = KLI8137) 125 74-118 H [facility] HospitalCalcium Rbmyc4010-40-52 05:37:00* Test Item Value Reference Range Interpretation Comments Calcium Level (test code = 94330-5) 8.4 8.4-10.2 [facility] HospitalWhite Blood Rkdmp1336-20-39 05:26:00* Test Item Value Reference Range Interpretation Comments White Blood Count (test code = 6690-2) 4.49 4.8-10.8 L [facility] HospitalRed Blood Tmoth0758-60-32 05:26:00* Test Item Value Reference Range Interpretation Comments Red Blood Count (test code = 789-8) 3.94 4.3-5.7 L [facility] HospitalHemoglobin2019-09-16 05:26:00* Test Item Value Reference Range Interpretation Comments Hemoglobin (test code = 06191-5) 11.0 14.0-18.0 L [facility] HospitalHematocrit2019-09-16 05:26:00* Test Item Value Reference Range Interpretation Comments Hematocrit (test code = 4544-3) 34.1 38.2-49.6 L [facility] HospitalMean Corpuscular Zdjjmy0680-00-28 05:26:00* Test Item Value Reference Range Interpretation Comments Mean Corpuscular Volume (test code = 787-2) 86.5 81-99 [facility] HospitalMean Corpuscular Obcachhvmy5471-15-80 05:26:00* Test Item Value Reference Range Interpretation Comments Mean Corpuscular Hemoglobin (test code = 785-6) 27.9 28-32 L [facility] HospitalMean Corpuscular Hemoglobin Concent 2018-11-08 05:26:00* Test Item Value Reference Range Interpretation Comments Mean Corpuscular Hemoglobin Concent (test code = 786-4) 32.3 31-35 [facility] HospitalRed Cell Distribution Fwzun1892-76-04 05:26:00* Test Item Value Reference Range Interpretation Comments Red Cell Distribution Width (test code = 02660-0) 15.9 11.7 -14.4 H [facility] HospitalPlatelet Znuka8357-92-06 05:26:00* Test Item Value Reference Range Interpretation Comments Platelet Count (test code = 777-3) 101 140-360 L [facility] HospitalNeutrophils (%) (Auto)2018-11-08 05:26:00 * Test Item Value Reference Range Interpretation Comments Neutrophils (%) (Auto) (test code = 79780-2) 59.0 38.7-80.0 [facility] HospitalLymphocytes (%) (Auto)2018-11-08 05:26:00 * Test Item Value Reference Range Interpretation Comments Lymphocytes (%) (Auto) (test code = 736-9) 27.4 18.0-39.1 [facility] HospitalMonocytes (%) (Auto)2018-11-08 05:26:00* Test Item Value Reference Range Interpretation Comments Monocytes (%) (Auto) (test code = 5905-5) 7.6 4.4-11.3 [facility] HospitalEosinophils (%) (Auto)2018-11-08 05:26:00 * Test Item Value Reference Range Interpretation Comments Eosinophils (%) (Auto) (test code = 713-8) 4.9 0.0-6.0 [facility] HospitalBasophils (%) (Auto)2018-11-08 05:26:00* Test Item Value Reference Range Interpretation Comments Basophils (%) (Auto) (test code = 706-2) 0.7 0.0-1.0 [facility] HospitalIM GRANULOCYTES %2018-11-08 05:26:00* Test Item Value Reference Range Interpretation Comments IM GRANULOCYTES % (test code = IM GRANULOCYTES %) 0.4 0.0- 1.0 [facility] HospitalNeutrophils # (Auto)2018-11-08 05:26:00* Test Item Value Reference Range Interpretation Comments Neutrophils # (Auto) (test code = 751-8) 2.7 2.1-6.9 [facility] HospitalLymphocytes # (Auto)2018-11-08 05:26:00* Test Item Value Reference Range Interpretation Comments Lymphocytes # (Auto) (test code = 98757-3) 1.2 1.0-3.2 [facility] HospitalMonocytes # (Auto)2018-11-08 05:26:00* Test Item Value Reference Range Interpretation Comments Monocytes # (Auto) (test code = 742-7) 0.3 0.2-0.8 [facility] HospitalEosinophils # (Auto)2018-11-08 05:26:00* Test Item Value Reference Range Interpretation Comments Eosinophils # (Auto) (test code = 711-2) 0.2 0.0-0.4 [facility] HospitalBasophils # (Auto)2018-11-08 05:26:00* Test Item Value Reference Range Interpretation Comments Basophils # (Auto) (test code = 704-7) 0.0 0.0-0.1 [facility] HospitalAbsolute Immature Granulocyte (auto 2018-11-08 05:26:00* Test Item Value Reference Range Interpretation Comments Absolute Immature Granulocyte (auto (shin t code = Absolute Immature Granulocyte (auto) 0.02 0-0.1 [facility] HospitalMagnesium Gmtso9027-67-30 07:21:00* Test Item Value Reference Range Interpretation Comments Magnesium Level (test code = 97191-3) 1.5 1.3-2.1 [facility] HospitalMagnesium Tohsi9230-18-95 07:21:00* Test Item Value Reference Range Interpretation Comments Magnesium Level (test code = 55978-1) 1.5 1.3-2.1 [facility] HospitalTotal Ozwtukblz0097-05-40 08:37:00* Test Item Value Reference Range Interpretation Comments Total Bilirubin (test code = 1975-2) 0.5 0.2-1.2 [facility] HospitalAspartate Amino Transf (AST/SGOT) 2018-11-05 08:37:00* Test Item Value Reference Range Interpretation Comments Aspartate Amino Transf (AST/SGOT) (test code = Aspartate Amino Transf (AST/SGOT)) 12 5-34 [facility] HospitalAlanine Aminotransferase (ALT/SGPT) 2018-11-05 08:37:00* Test Item Value Reference Range Interpretation Comments Alanine Aminotransferase (ALT/SGPT) (test code = 1742-6) 14 0-55 [facility] HospitalTotal Cdjilqe0994-79-63 08:37:00* Test Item Value Reference Range Interpretation Comments Total Protein (test code = 2885-2) 7.3 6.5-8.1 [facility] HospitalAlbumin2019-09-13 08:37:00* Test Item Value Reference Range Interpretation Comments Albumin (test code = 1751-7) 3.0 3.5-5.0 L [facility] HospitalGlobulin2019-09-13 08:37:00* Test Item Value Reference Range Interpretation Comments Globulin (test code = 95199-0) 4.3 2.3-3.5 H [facility] HospitalAlbumin/Globulin Nbjgd7324-82-39 08:37:00 * Test Item Value Reference Range Interpretation Comments Albumin/Globulin Ratio (test code = 1759-0) 0.7 0.8-2.0 L [facility] HospitalAlkaline Hqdceowxlht0246-94-19 08:37:00* Test Item Value Reference Range Interpretation Comments Alkaline Phosphatase (test code = 6768-6) 200 40-150 H [facility] Cablhhc1767-99-33 05:38:00* Test Item Value Reference Range Interpretation Comments Blood Culture (test code = 63719800) NO GROWTH AFTER 5 DAYS, FINAL REPORT [facility]2019-09-13 05:38:00* Test Item Value Reference Range Interpretation Comments Blood Culture (test code = 72910868) NO GROWTH AFTER 5 DAYS, FINAL REPORT [facility] Earqtex5043-72-14 05:38:00* Test Item Value Reference Range Interpretation Comments Blood Culture (test code = 60996399) NO GROWTH AFTER 5 DAYS, FINAL REPORT [facility] Drdecms1097-02-34 05:38:00* Test Item Value Reference Range Interpretation Comments Blood Culture (test code = 12178989) NO GROWTH AFTER 5 DAYS, FINAL REPORT [facility] HospitalPhosphorus Jekuh9473-69-70 05:51:00* Test Item Value Reference Range Interpretation Comments Phosphorus Level (test code = OKG9091) 5.4 2.3-4.7 H [facility] HospitalPhosphorus Rrjyu4002-94-28 05:51:00* Test Item Value Reference Range Interpretation Comments Phosphorus Level (test code = HEJ6744) 5.4 2.3-4.7 H [facility] HospitalIron Wahbb5027-74-51 06:18:00* Test Item Value Reference Range Interpretation Comments Iron Level (test code = 2498-4) 50 65-175 L [facility] Iron Binding Vkmxmpdx5703-16-46 06:18:00* Test Item Value Reference Range Interpretation Comments Total Iron Binding Capacity (test code = 2500-7) 232 261-4 78 L [facility] Iron Egamfehsio0509-84-16 06:18:00* Test Item Value Reference Range Interpretation Comments Percent Iron Saturation (test code = 2502-3) 22 15-50 [facility] HospitalTransferrin2019-09-09 06:18:00* Test Item Value Reference Range Interpretation Comments Transferrin (test code = 3034-6) 166 174-364 L [facility]2019-09-09 06:18:00* Test Item Value Reference Range Interpretation Comments Iron Level (test code = 2498-4) 50 65-175 L [facility] Iron Binding Iursiurg7001-40-91 06:18:00* Test Item Value Reference Range Interpretation Comments Total Iron Binding Capacity (test code = 2500-7) 232 261-4 78 L [facility] Iron Uozsfrlqbc3780-94-95 06:18:00* Test Item Value Reference Range Interpretation Comments Percent Iron Saturation (test code = 2502-3) 22 15-50 [facility]2019-09-09 06:18:00* Test Item Value Reference Range Interpretation Comments Transferrin (test code = 3034-6) 166 174-364 L [facility]2019-09-09 06:18:00* Test Item Value Reference Range Interpretation Comments Iron Level (test code = 2498-4) 50 65-175 L [facility] Iron Binding Evdljbrb6547-22-70 06:18:00* Test Item Value Reference Range Interpretation Comments Total Iron Binding Capacity (test code = 2500-7) 232 261-4 78 L [facility] Iron Kyajcdgwtw4807-09-52 06:18:00* Test Item Value Reference Range Interpretation Comments Percent Iron Saturation (test code = 2502-3) 22 15-50 [facility] HospitalTransferrin2019-09-09 06:18:00* Test Item Value Reference Range Interpretation Comments Transferrin (test code = 3034-6) 166 174-364 L [facility] HospitalIron Pthwq6369-88-93 06:18:00* Test Item Value Reference Range Interpretation Comments Iron Level (test code = 2498-4) 50 65-175 L [facility] HospitalTotal Iron Binding Wchagipr6081-64-58 06:18:00* Test Item Value Reference Range Interpretation Comments Total Iron Binding Capacity (test code = 2500-7) 232 261-4 78 L [facility] HospitalPercent Iron Mytetpgubx1375-20-47 06:18:00* Test Item Value Reference Range Interpretation Comments Percent Iron Saturation (test code = 2502-3) 22 15-50 [facility] HospitalTransferrin2019-09-09 06:18:00* Test Item Value Reference Range Interpretation Comments Transferrin (test code = 3034-6) 166 174-364 L [facility] HospitalUrine LZX9744-92-60 15:35:00* Test Item Value Reference Range Interpretation Comments Urine WBC (test code = 5821-4) >50 0-5 H [facility] HospitalUrine QNS4449-88-28 15:35:00* Test Item Value Reference Range Interpretation Comments Urine RBC (test code = 28392-4) >50 0-5 H [facility] HospitalUrine Czkaywfu7011-08-60 15:35:00* Test Item Value Reference Range Interpretation Comments Urine Bacteria (test code = 33532-4) MANY NONE H [facility] HospitalUrine Epithelial Fiwyg4244-70-19 15:35:00 * Test Item Value Reference Range Interpretation Comments Urine Epithelial Cells (test code = 47688-0) MANY NONE [facility] HospitalUrine Mwhss8112-07-64 15:11:00* Test Item Value Reference Range Interpretation Comments Urine Color (test code = 5778-6) YELLOW YELLOW [facility] HospitalUrine Gaeleux1711-10-00 15:11:00* Test Item Value Reference Range Interpretation Comments Urine Clarity (test code = 56412-0) SL CLOUDY CLEAR H [facility] HospitalUrine Specific Serzclh6946-10-45 15:11:00 * Test Item Value Reference Range Interpretation Comments Urine Specific [place] (test code = 5811-5) 1.025 1.010-1.02 5 [facility] HospitalUrine rJ5829-06-20 15:11:00* Test Item Value Reference Range Interpretation Comments Urine pH (test code = 53900-9) 6 5-7 [facility] HospitalUrine Leukocyte Mnqztbqq7260-38-80 15:11:00* Test Item Value Reference Range Interpretation Comments Urine Leukocyte Esterase (test code = 11929-7) NEGATIVE NEGATIV E [facility] HospitalUrine Sgtvbkq4494-99-81 15:11:00* Test Item Value Reference Range Interpretation Comments Urine Nitrite (test code = 77262-9) NEGATIVE NEGATIVE [facility] HospitalUrine Fvrsyet0826-69-84 15:11:00* Test Item Value Reference Range Interpretation Comments Urine Protein (test code = 77098-3) 3+ NEGATIVE H [facility] HospitalUrine Glucose (UA)2018-10-31 15:11:00* Test Item Value Reference Range Interpretation Comments Urine Glucose (UA) (test code = 45597-7) NEGATIVE NEGATIVE [facility] HospitalUrine Vhzxitx6758-64-08 15:11:00* Test Item Value Reference Range Interpretation Comments Urine Ketones (test code = 56945-9) NEGATIVE NEGATIVE [facility] HospitalUrine Otkxyjfbwfek0347-99-92 15:11:00* Test Item Value Reference Range Interpretation Comments Urine Urobilinogen (test code = 30161-8) 0.2 0.2-1 [facility] HospitalUrine Zohaogfrh7489-01-77 15:11:00* Test Item Value Reference Range Interpretation Comments Urine Bilirubin (test code = 1977-8) NEGATIVE NEGATIVE [facility] HospitalUrine Wdhbw6445-22-87 15:11:00* Test Item Value Reference Range Interpretation Comments Urine Blood (test code = 89165-0) 3+ NEGATIVE [facility] HospitalCreatine Kinase QD4756-25-50 08:40:00* Test Item Value Reference Range Interpretation Comments Creatine Kinase MB (test code = 96008-9) 1.60 0-5.0 [place] 44979019-09-08 08:40:00* Test Item Value Reference Range Interpretation Comments Troponin I (test code = OKK9195) 0.008 0-0.300 [facility] HospitalCreatine Kinase DF1575-16-28 08:40:00* Test Item Value Reference Range Interpretation Comments Creatine Kinase MB (test code = 63744-8) 1.60 0-5.0 [place] 44979019-09-08 08:40:00* Test Item Value Reference Range Interpretation Comments Troponin I (test code = RWU6588) 0.008 0-0.300 [facility] AD5101-55-57 08:40:00* Test Item Value Reference Range Interpretation Comments Creatine Kinase MB (test code = 99540-1) 1.60 0-5.0 [place] 44979019-09-08 08:40:00* Test Item Value Reference Range Interpretation Comments Troponin I (test code = CLZ3867) 0.008 0-0.300 [facility] Kinase HV5659-47-77 08:40:00* Test Item Value Reference Range Interpretation Comments Creatine Kinase MB (test code = 79417-7) 1.60 0-5.0 [place] 44979019-09-08 08:40:00* Test Item Value Reference Range Interpretation Comments Troponin I (test code = YTF2766) 0.008 0-0.300 [facility] HospitalCreatine Kinase PR3892-55-45 08:40:00* Test Item Value Reference Range Interpretation Comments Creatine Kinase MB (test code = 15906-9) 1.60 0-5.0 [place] 44979019-09-08 08:40:00* Test Item Value Reference Range Interpretation Comments Troponin I (test code = SUN0794) 0.008 0-0.300 [facility] HospitalCreatine Kinase FU3969-21-89 08:40:00* Test Item Value Reference Range Interpretation Comments Creatine Kinase MB (test code = 24870-5) 1.60 0-5.0 [place] 44979019-09-08 08:40:00* Test Item Value Reference Range Interpretation Comments Troponin I (test code = 90593-6) 0.008 0-0.300 [facility] HospitalCreatine Kinase TE3681-18-13 08:40:00* Test Item Value Reference Range Interpretation Comments Creatine Kinase MB (test code = 27362-1) 1.60 0-5.0 [place] 44979019-09-08 08:40:00* Test Item Value Reference Range Interpretation Comments Troponin I (test code = 63462-3) 0.008 0-0.300 [facility] HospitalCreatine Nzleou8519-64-77 07:55:00* Test Item Value Reference Range Interpretation Comments Creatine Kinase (test code = 2157-6) 266 30-200 H [facility] HospitalCreatine Edtjri9023-60-21 07:55:00* Test Item Value Reference Range Interpretation Comments Creatine Kinase (test code = 2157-6) 266 30-200 H [facility] HospitalCreatine Glflfx4201-73-74 07:55:00* Test Item Value Reference Range Interpretation Comments Creatine Kinase (test code = 2157-6) 266 30-200 H [facility] HospitalCreatine Dwrcwn8334-03-34 07:55:00* Test Item Value Reference Range Interpretation Comments Creatine Kinase (test code = 2157-6) 266 30-200 H [facility] HospitalCreatine Vqvfuz6286-06-87 07:55:00* Test Item Value Reference Range Interpretation Comments Creatine Kinase (test code = 2157-6) 266 30-200 H [facility] HospitalCreatine Tvrwsr3915-78-88 07:55:00* Test Item Value Reference Range Interpretation Comments Creatine Kinase (test code = 2157-6) 266 30-200 H [facility] HospitalCreatine Xffnqx1543-23-37 07:55:00* Test Item Value Reference Range Interpretation Comments Creatine Kinase (test code = 2157-6) 266 30-200 H [facility] HospitalCT ABDOMEN/PELVIS XU8226-52-44 02:46:00 [facility] [address] [address] Patient Name: MANJIT LUO MR #: [id number] : 1980 Age/Sex: 38/M Req #: [id number] Adm Physician: Ordered by: BEV FLORES MD Report #: [id number] Location: ER Room/Bed: Procedure: [id number] CT/CT ABDOMEN/PELVIS WO Exam Date: 10/31/18 Exam Cm e: 0215 REPORT STATUS: Signed CT Abdomen and Pelvis without contrast INDICATION rt flank pain 214 TECHNIQUE: Thin collimation axial images obtained from the diaph ragm to the level of the pubic symphysis without nonionic intravenous contrast . Dose reduction techniques used: Automated exposure control, adjustment o f the mAs and/or kVp according to patient size, standardized low-dose protocol , and/or iterative reconstruction technique. RADIATION DOSE: Total DLP: 529.8 mGy*cm Estimated effective dose: (DLP x 0.015 x size factor) mSv CTDIvol has been reviewed. It is below the limits set by the Radiatio n Protocol Committee (RPC). COMPARISON: CT abdomen/pelvis 10/18/2018. ABDOMEN FINDINGS: Lung Bases: Small focus of groundglass attenuation in t he anterior basal segment of the left lower lobe is suggestive of an infectiou s/inflammatory process. The visualized portion of the mediastinum is normal. Liver: Normal in attenuation without mass. Gallbladder: Absent. No slim pat dilatation. Pancreas: Diffuse calcifications. No ductal dilatation or s oft tissue mass. Spleen: Normal size without mass. Adrenal Glands: No evidence for mass. Kidneys: Right: Atrophic with fullness of the collect ing system, similar to previous exam. No perinephric inflammation. No intrare nal calculus Left: Fullness of the collecting system without significant p erinephric inflammation. No intrarenal calculus. No cortical mass Lymph Nodes: No enlarged abdominal or periaortic lymph nodes. Inguinal lymph nodes a re prominent, particularly the right inguinal lymph nodes. These are similar i n appearance. A right obturator lymph node measures 2.5 cm and is stable. Ther e are no enlarged mesenteric lymph nodes. Aorta: Normal in diameter. PELVIS FINDINGS: Bowel: Stomach: Normal. Small Bowel: Normal in don barby with normal wall thickness. Large Bowel: Normal in caliber with normal wal l thickness. Appendix: Normal. Bladder: Suprapubic catheter is in appropr iate position. The bladder is collapsed. No perivesicular inflammation Ur eters: No ureteral dilatation or calculus. The ureters are mildly distended an d symmetric in appearance without periureteric inflammation Peritoneum/retr operitoneum: No free fluid or fluid collection. Bones: No focal osseous les ions. Soft tissues: Bilateral scrotal calcifications are stable. IMPRE SSION: 1. Patulousness of the renal collecting systems and chronic mild sy mmetric distention of the ureters without associated inflammation. No renal or ureteral calculus 2. No evidence for bowel obstruction or inflammation. Normal appendix. 3. Chronic pancreatitis. 4. Small focus of inflammat ion in the anterior basal segment of the left lower lobe. Please correlate for signs/symptoms of infection. Signed by: Dr. Sandy Colmenares MD on 019 2:53 AM Dictated By: SANDY COLMENARES MD 2 Transcribed By: TIFFANY on 10/31/18252 COPY TO: BEV FLORES MD Bedside Cvtgpqp3862-87-95 07:32:00* Test Item Value Reference Range Interpretation Comments Bedside Glucose (test code = 33990-1) 106 70-120 Meter ID: [id number] Memorial Hospitalodium Level 2018-10-29 07:01:00* Test Item Value Reference Range Interpretation Comments Sodium Level (test code = 2951-2) 138 136-145 [facility] HospitalPotassium Qqhia8928-86-63 07:01:00* Test Item Value Reference Range Interpretation Comments Potassium Level (test code = 2823-3) 4.5 3.5-5.1 [facility] HospitalChloride Xzkvw4460-79-74 07:01:00* Test Item Value Reference Range Interpretation Comments Chloride Level (test code = 2075-0) 103 98-107 [facility] HospitalCarbon Dioxide Zqojs0646-69-53 07:01:00* Test Item Value Reference Range Interpretation Comments Carbon Dioxide Level (test code = 2028-9) 24 22-29 [facility] HospitalAnion Ajb1267-93-06 07:01:00* Test Item Value Reference Range Interpretation Comments Anion Gap (test code = 96842-1) 15.5 8-16 [facility] HospitalBlood Urea Aooctvhp3416-17-99 07:01:00* Test Item Value Reference Range Interpretation Comments Blood Urea Nitrogen (test code = 3094-0) 29 7-26 H [facility] HospitalCreatinine2019-09-06 07:01:00* Test Item Value Reference Range Interpretation Comments Creatinine (test code = 2160-0) 3.71 0.72-1.25 H [facility] HospitalBUN/Creatinine Puutq3080-51-63 07:01:00* Test Item Value Reference Range Interpretation Comments BUN/Creatinine Ratio (test code = 3097-3) 8 6-25 [facility] HospitalEstimat Glomerular Filtration Rate 2018-10-29 07:01:00* Test Item Value Reference Range Interpretation Comments Estimat Glomerular Filtration Rate (test code = 605427209) 18 >60 L Ranges were taken from the National Kidney Disease Education Program and the [facility] literature.Reference ranges:60 or greater: Prngjl67-78 ( for 3 consecutive months): Chronic kidney disease 15 or less: Kidney failureGonzales Memorial HospitalGlucose Sowwz3565-72-24 07:01:00* Test Item Value Reference Range Interpretation Comments Glucose Level (test code = RFV2522) 104 74-118 [facility] HospitalCalcium Bigng0913-89-36 07:01:00* Test Item Value Reference Range Interpretation Comments Calcium Level (test code = 03950-4) 8.2 8.4-10.2 L [facility] HospitalWhite Blood Uwurt7939-99-54 06:31:00* Test Item Value Reference Range Interpretation Comments White Blood Count (test code = 6690-2) 5.14 4.8-10.8 [facility] HospitalRed Blood Kvqth5571-60-11 06:31:00* Test Item Value Reference Range Interpretation Comments Red Blood Count (test code = 789-8) 3.56 4.3-5.7 L [facility] HospitalHemoglobin2019-09-06 06:31:00* Test Item Value Reference Range Interpretation Comments Hemoglobin (test code = 75865-8) 9.8 14.0-18.0 L [facility] HospitalHematocrit2019-09-06 06:31:00* Test Item Value Reference Range Interpretation Comments Hematocrit (test code = 4544-3) 30.4 38.2-49.6 L [facility] HospitalMean Corpuscular Yyboli6880-03-58 06:31:00* Test Item Value Reference Range Interpretation Comments Mean Corpuscular Volume (test code = 787-2) 85.4 81-99 [facility] HospitalMean Corpuscular Gnejavaqfs2572-20-19 06:31:00* Test Item Value Reference Range Interpretation Comments Mean Corpuscular Hemoglobin (test code = 785-6) 27.5 28-32 L [facility] HospitalMean Corpuscular Hemoglobin Concent 2018-10-29 06:31:00* Test Item Value Reference Range Interpretation Comments Mean Corpuscular Hemoglobin Concent (test code = 786-4) 32.2 31-35 [facility] HospitalRed Cell Distribution Vjfkg1895-29-60 06:31:00* Test Item Value Reference Range Interpretation Comments Red Cell Distribution Width (test code = 44473-8) 15.0 11.7 -14.4 H [facility] HospitalPlatelet Xfnhj1665-22-44 06:31:00* Test Item Value Reference Range Interpretation Comments Platelet Count (test code = 777-3) 103 140-360 L [facility] HospitalNeutrophils (%) (Auto)2018-10-29 06:31:00 * Test Item Value Reference Range Interpretation Comments Neutrophils (%) (Auto) (test code = 43263-0) 56.2 38.7-80.0 [facility] HospitalLymphocytes (%) (Auto)2018-10-29 06:31:00 * Test Item Value Reference Range Interpretation Comments Lymphocytes (%) (Auto) (test code = 736-9) 33.7 18.0-39.1 [facility] HospitalMonocytes (%) (Auto)2018-10-29 06:31:00* Test Item Value Reference Range Interpretation Comments Monocytes (%) (Auto) (test code = 5905-5) 6.2 4.4-11.3 [facility] HospitalEosinophils (%) (Auto)2018-10-29 06:31:00 * Test Item Value Reference Range Interpretation Comments Eosinophils (%) (Auto) (test code = 713-8) 2.7 0.0-6.0 [facility] HospitalBasophils (%) (Auto)2018-10-29 06:31:00* Test Item Value Reference Range Interpretation Comments Basophils (%) (Auto) (test code = 706-2) 0.4 0.0-1.0 [facility] HospitalIM GRANULOCYTES %2018-10-29 06:31:00* Test Item Value Reference Range Interpretation Comments IM GRANULOCYTES % (test code = IM GRANULOCYTES %) 0.8 0.0- 1.0 [facility] HospitalNeutrophils # (Auto)2018-10-29 06:31:00* Test Item Value Reference Range Interpretation Comments Neutrophils # (Auto) (test code = 751-8) 2.9 2.1-6.9 [facility] HospitalLymphocytes # (Auto)2018-10-29 06:31:00* Test Item Value Reference Range Interpretation Comments Lymphocytes # (Auto) (test code = 58760-8) 1.7 1.0-3.2 [facility] HospitalMonocytes # (Auto)2018-10-29 06:31:00* Test Item Value Reference Range Interpretation Comments Monocytes # (Auto) (test code = 742-7) 0.3 0.2-0.8 [facility] HospitalEosinophils # (Auto)2018-10-29 06:31:00* Test Item Value Reference Range Interpretation Comments Eosinophils # (Auto) (test code = 711-2) 0.1 0.0-0.4 [facility] HospitalBasophils # (Auto)2018-10-29 06:31:00* Test Item Value Reference Range Interpretation Comments Basophils # (Auto) (test code = 704-7) 0.0 0.0-0.1 [facility] HospitalAbsolute Immature Granulocyte (auto 2018-10-29 06:31:00* Test Item Value Reference Range Interpretation Comments Absolute Immature Granulocyte (auto (shin t code = Absolute Immature Granulocyte (auto) 0.04 0-0.1 [facility] Occult Mswhv1958-44-94 16:26:00* Test Item Value Reference Range Interpretation Comments Stool Occult Blood (test code = 2335-8) NEGATIVE NEGATIVE [facility] Occult Xwwji1863-38-70 16:26:00* Test Item Value Reference Range Interpretation Comments Stool Occult Blood (test code = 2335-8) NEGATIVE NEGATIVE [facility] Occult Utapy1275-65-28 16:26:00* Test Item Value Reference Range Interpretation Comments Stool Occult Blood (test code = 2335-8) NEGATIVE NEGATIVE [facility] Occult Dosyf3114-40-03 16:26:00* Test Item Value Reference Range Interpretation Comments Stool Occult Blood (test code = 2335-8) NEGATIVE NEGATIVE [facility] Occult Ysvgt6641-40-07 16:26:00* Test Item Value Reference Range Interpretation Comments Stool Occult Blood (test code = 2335-8) NEGATIVE NEGATIVE [facility] Occult Kaqvb4447-50-65 16:26:00* Test Item Value Reference Range Interpretation Comments Stool Occult Blood (test code = 2335-8) NEGATIVE NEGATIVE [facility] Occult Ravnn1183-52-37 16:26:00* Test Item Value Reference Range Interpretation Comments Stool Occult Blood (test code = 2335-8) NEGATIVE NEGATIVE [facility] Occult Tjfcm8551-32-32 16:26:00* Test Item Value Reference Range Interpretation Comments Stool Occult Blood (test code = 2335-8) NEGATIVE NEGATIVE [facility] gastrointestinal hemoglobin vwtlbvdfd3558-05-90 15:53:00* Test Item Value Reference Range Interpretation Comments Stool Occult Blood (test code = 2335-8) NEGATIVE NEGATIVE [facility] HospitalUrine Giixyyg9832-25-29 07:43:00* Test Item Value Reference Range Interpretation Comments Urine Culture (test code = 630-4) Organism: PSEUDOMONAS AERUGINOSA [facility] Yubgrrk2913-78-44 07:43:00* Test Item Value Reference Range Interpretation Comments Urine Culture (test code = 630-4) Organism: PSEUDOMONAS AERUGINOSA [facility] Phnjoxe7572-10-88 07:43:00* Test Item Value Reference Range Interpretation Comments Urine Culture (test code = 630-4) Organism: PSEUDOMONAS AERUGINOSA [facility] Exazniz3757-36-49 07:43:00* Test Item Value Reference Range Interpretation Comments Urine Culture (test code = 630-4) No Result Data Provided [facility] HospitalUrine Fsfdzof9407-15-23 07:43:00* Test Item Value Reference Range Interpretation Comments Urine Culture (test code = 630-4) No Result Data Provided [facility] HospitalRENAL SCAN W/HCEJT1551-41-54 17:45:00 [place] [address] Patient Name: MANJIT LUO MR #: [id number] : 1980 Age/Sex: 38/M Req #: [id number] Adm Physician: ABHIJIT YODER MD Ordered by: TONY MAY MD Report #: [id number] Location: MED/SURG3 Room/Bed: [facility] Procedure: [id number] NM/RE NAL SCAN W/LASIX Exam Date: Exam Time: REPORT STATUS: Signed Renal Scan with Lasix Washout Clinical information: Acute renal failure Technique: Following intravenous administration of 10 mCi of Tc-99m MAG3, dynamic images of the k idneys in the posterior projection were obtained through 40 minutes. Lasix 40 mg was administered intravenously at 10 minutes post injection of the tracer. Report: Left kidney: Perfusion of the left kidney is prompt. The kid surekha has a elongated reniform shape with moderate thinning of the renal cortex. Extraction of tracer from the blood pool is overall decreased. Clearance of tracer from the renal parenchyma is begins promptly but is not complete by the end of the study. The pelvicalyceal system is moderately dilated. Increased pooling of tracer is seen within the pelvicalyceal system. No net drainage of tracer from the pelvicalyceal system is seen prior to administration of Lasix. Washout of tracer from the pelvicalyceal system following administration of Lasix is slow with a T-1/2 of 15 minutes (normal less than 15 minutes). No significant stasis of tracer is seen within the left ureter. Right kidney: Perfusion to the right kidney is prompt. The right kidney has distorted re niform shape with marked thinning of the renal cortex. The kidney is not as e longated as the left kidney and the renal cortex is more thinned than the alexander l cortex of the left kidney. Extraction of tracer by the renal parenchyma is decreased. Clearance of tracer from the renal parenchyma begins promptly but i s not complete by the end of the study. The pelvicalyceal system is moderatel y dilated. Increased pooling of tracer is seen within the pelvicalyceal syste m. No net drainage of tracer from the pelvicalyceal system is seen prior to a dministration of Lasix. No washout of tracer from the pelvicalyceal system is seen following administration of Lasix. The T-1/2 for Lasix washout of the p elvicalyceal system is undefined as there is no downward slope of the time-act ivity curve. Differential renal function: The left kidney contributes 71% of total renal function and the right kidney contributes 29% (normal 43-57%). Impression: 1. 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 Significant medi tricia renal disease is also present. Moderate hydronephrosis is present, howeve r, physiologically significant obstruction at the UPJ is not suspected althoug h the T-1/2 for Lasix washout is at the upper range of normal. 2. Loss o f renal parenchyma is greater in the right kidney compared to the left kidney due to more severe thinning of the renal cortex. This accounts for the decrea sed differential renal function of 29%. SIgnificant medical renal disease is also present. Moderately severe hydronephrosis is present and physiologically significant obstruction of the UPJ is present. Signed by: Dr. Yuly white M.D. on 10/21/2018 6:04 PM Dictated By: YULY PERALTA MD [facility] Signed By: YULY PERALTA MD on 10/21/181803 Transcribed By: TIFFANY on 1803 COPY TO: TONY MAY MD Urine Egacpzb7088-61-81 14:00:00* Test Item Value Reference Range Interpretation Comments Urine Culture (test code = 630-4) Organism: STAPHYLOCOCCUS AUREUS [facility] HospitalUrine Xmxkhfr6615-62-98 14:00:00* Test Item Value Reference Range Interpretation Comments Urine Culture (test code = 630-4) Organism: STAPHYLOCOCCUS AUREUS [facility] HospitalUrine Eyanzje5156-99-93 14:00:00* Test Item Value Reference Range Interpretation Comments Urine Culture (test code = 630-4) Organism: STAPHYLOCOCCUS AUREUS [facility] HospitalUrine Agvvdjg5111-39-39 14:00:00* Test Item Value Reference Range Interpretation Comments Urine Culture (test code = 630-4) No Result Data Provided [facility] HospitalUrine Gmwpxdx8033-61-42 14:00:00* Test Item Value Reference Range Interpretation Comments Urine Culture (test code = 630-4) No Result Data Provided [facility] HospitalFerritin2019-08-27 06:53:00* Test Item Value Reference Range Interpretation Comments Ferritin (test code = 2276-4) 242.22 21.81-274.66 [facility] HospitalFerritin2019-08-27 06:53:00* Test Item Value Reference Range Interpretation Comments Ferritin (test code = 2276-4) 242.22 21.81-274.66 [facility] HospitalFerritin2019-08-27 06:53:00* Test Item Value Reference Range Interpretation Comments Ferritin (test code = 2276-4) 242.22 21.81-274.66 [facility] HospitalMagnesium Nqyzi1917-01-60 06:25:00* Test Item Value Reference Range Interpretation Comments Magnesium Level (test code = 48309-1) 1.2 1.3-2.1 L [facility] HospitalIron Ensoc4538-82-71 06:25:00* Test Item Value Reference Range Interpretation Comments Iron Level (test code = 2498-4) 66 65-175 [facility] HospitalTotal Iron Binding Qzouwpte6094-37-90 06:25:00* Test Item Value Reference Range Interpretation Comments Total Iron Binding Capacity (test code = 2500-7) 197 261-4 78 L [facility] HospitalPercent Iron Pdumysyasx7641-51-73 06:25:00* Test Item Value Reference Range Interpretation Comments Percent Iron Saturation (test code = 2502-3) 34 15-50 [facility] HospitalTransferrin2019-08-27 06:25:00* Test Item Value Reference Range Interpretation Comments Transferrin (test code = 3034-6) 141 174-364 L [facility] HospitalPhosphorus Qjlmt4745-39-70 12:53:00* Test Item Value Reference Range Interpretation Comments Phosphorus Level (test code = CMP6855) 5.0 2.3-4.7 H [facility] ED9241-83-20 09:50:00 [facility] [address] [address] Patient Name: MANJIT LUO MR #: [id number] : 1980 Age/Sex: 38/M Req #: [id number] Adm Physician: ABHIJIT YODER MD Ordered by: ABHIJIT YODER MD Report #: [id number] Location: MED/SURG Room/Bed: [facility] [place] Procedure: [id number] CT/CT ABDOMEN/PELVIS WO Exam Date: 10/18/18 Exam Time: 11 02 REPORT STATUS: Signed Exam: C T abdomen and pelvis Comparison: May 03, 2018 Clinical history: Acut e renal failure Technique: Helical images of the abdomen and pelvis were ob tained without contrast Findings: The lung bases are clear. There is no e vidence of pleural effusion. The cardiac size is within normal limits. No ncontrast images of the liver, spleen, adrenal glands, and kidneys are unremar kable. The gallbladder has been removed. Scattered calcifications are again no jesus alberto throughout the pancreas likely secondary to chronic pancreatitis. The s mall and large bowels are normal in caliber without evidence of obstruction. T he appendix is visualized and within normal limits. A suprapubic catheter i s again noted within the bladder. There is circumferential thickening of the b ladder wall likely chronic in nature. The prostate and seminal vesicles are un remarkable. There is no evidence of free fluid. The aorta and IVC are paramjit l in caliber. Scattered lymph nodes are again noted throughout bilateral ingui nal regions without interval changes. These may be reactive in nature. Recomme nd clinical correlation. Impression: 1. No intra-abdominal pelvic abnor malities for a noncontrast CT. 2. Chronic inflammatory changes of the pancreas again noted. 3. Status post cholecystectomy. 4. Suprapubic catheter again v isualized. Signed by: Dr. Nelson Rivera MD on 10/18/2018 10:00 AM Dict ated By: DESTINY RIVERA MD 1000 COPY TO: ABHIJIT YODER Ionized Heankyl9620-62-23 09:47:00* Test Item Value Reference Range Interpretation Comments Ionized Calcium (test code = 67867-8) 1.0 1.09-1.30 L [facility] HospitalIonized Babkqbj5853-58-45 09:47:00* Test Item Value Reference Range Interpretation Comments Ionized Calcium (test code = 43960-0) 1.0 1.09-1.30 L [facility] Juqauoa0534-68-75 09:47:00* Test Item Value Reference Range Interpretation Comments Ionized Calcium (test code = 39329-4) 1.0 1.09-1.30 L [facility] HospitalTotal Qwynlrbgn1199-78-49 06:16:00* Test Item Value Reference Range Interpretation Comments Total Bilirubin (test code = 1975-2) 0.3 0.2-1.2 [facility] HospitalAspartate Amino Transf (AST/SGOT) 2018-10-18 06:16:00* Test Item Value Reference Range Interpretation Comments Aspartate Amino Transf (AST/SGOT) (test code = Aspartate Amino Transf (AST/SGOT)) 118 5-34 H [facility] HospitalAlanine Aminotransferase (ALT/SGPT) 2018-10-18 06:16:00* Test Item Value Reference Range Interpretation Comments Alanine Aminotransferase (ALT/SGPT) (test code = 1742-6) 107 0-55 H [facility] HospitalTotal Mntzpkw5379-76-67 06:16:00* Test Item Value Reference Range Interpretation Comments Total Protein (test code = 2885-2) 6.5 6.5-8.1 [facility] HospitalAlbumin2019-08-26 06:16:00* Test Item Value Reference Range Interpretation Comments Albumin (test code = 1751-7) 2.7 3.5-5.0 L [facility] HospitalGlobulin2019-08-26 06:16:00* Test Item Value Reference Range Interpretation Comments Globulin (test code = 00443-1) 3.8 2.3-3.5 H [facility] HospitalAlbumin/Globulin Lyyxn1393-04-03 06:16:00 * Test Item Value Reference Range Interpretation Comments Albumin/Globulin Ratio (test code = 1759-0) 0.7 0.8-2.0 L [facility] HospitalAlkaline Cekhismvtkf5998-23-54 06:16:00* Test Item Value Reference Range Interpretation Comments Alkaline Phosphatase (test code = 6768-6) 306 40-150 H [facility] HospitalUrine Ypzxf2145-05-52 02:26:00* Test Item Value Reference Range Interpretation Comments Urine Color (test code = 5778-6) YELLOW YELLOW [facility] HospitalUrine Zvvtlrn0698-55-87 02:26:00* Test Item Value Reference Range Interpretation Comments Urine Clarity (test code = 77745-0) CLOUDY CLEAR H [facility] HospitalUrine Specific Fbdmipi2520-69-83 02:26:00 * Test Item Value Reference Range Interpretation Comments Urine Specific [place] (test code = 5811-5) 1.020 1.010-1.02 5 [facility] HospitalUrine uU6975-44-14 02:26:00* Test Item Value Reference Range Interpretation Comments Urine pH (test code = 14964-0) 6 5-7 [facility] HospitalUrine Leukocyte Gqgtbznm8216-06-47 02:26:00* Test Item Value Reference Range Interpretation Comments Urine Leukocyte Esterase (test code = 5799-2) 2+ NEGATIVE H [facility] HospitalUrine Ricaaam9271-22-61 02:26:00* Test Item Value Reference Range Interpretation Comments Urine Nitrite (test code = 73691-4) NEGATIVE NEGATIVE [facility] HospitalUrine Jxcvazy7174-81-95 02:26:00* Test Item Value Reference Range Interpretation Comments Urine Protein (test code = 5804-0) 3+ NEGATIVE H [facility] Glucose (UA)2018-10-17 02:26:00* Test Item Value Reference Range Interpretation Comments Urine Glucose (UA) (test code = 2349-9) NEGATIVE NEGATIVE [facility] HospitalUrine Xrufeus0514-06-08 02:26:00* Test Item Value Reference Range Interpretation Comments Urine Ketones (test code = 10515-9) NEGATIVE NEGATIVE [facility] Zqyqwrvwewdf7498-71-16 02:26:00* Test Item Value Reference Range Interpretation Comments Urine Urobilinogen (test code = 68246-5) 0.2 0.2-1 [facility] Ybltrvrgn2262-29-34 02:26:00* Test Item Value Reference Range Interpretation Comments Urine Bilirubin (test code = 1978-6) NEGATIVE NEGATIVE [facility] Rvaec9232-70-93 02:26:00* Test Item Value Reference Range Interpretation Comments Urine Blood (test code = 62580-7) 3+ NEGATIVE H [facility] WDQ9914-40-40 02:26:00* Test Item Value Reference Range Interpretation Comments Urine WBC (test code = 5821-4) >50 0-5 H [facility] HospitalUrine UIQ1348-22-42 02:26:00* Test Item Value Reference Range Interpretation Comments Urine RBC (test code = 69144-4) >50 0-5 H [facility] Gbcgwngt4495-56-31 02:26:00* Test Item Value Reference Range Interpretation Comments Urine Bacteria (test code = 20061-0) MANY NONE H [facility] Epithelial Bqxlo1556-99-62 02:26:00 * Test Item Value Reference Range Interpretation Comments Urine Epithelial Cells (test code = 72089-8) MODERATE NONE [facility] Jzzmw7430-75-34 13:40:00* Test Item Value Reference Range Interpretation Comments Sodium Level (test code = 2951-2) 142 136-145 [facility] HospitalPotassium Oynmg0701-75-95 13:40:00* Test Item Value Reference Range Interpretation Comments Potassium Level (test code = 2823-3) 4.4 3.5-5.1 [facility] HospitalChloride Dpnvm2789-69-71 13:40:00* Test Item Value Reference Range Interpretation Comments Chloride Level (test code = 2075-0) 107 98-107 [facility] HospitalCarbon Dioxide Zarsz8789-10-79 13:40:00* Test Item Value Reference Range Interpretation Comments Carbon Dioxide Level (test code = 2028-9) 25 22-29 [facility] HospitalAnion Yvm3881-16-97 13:40:00* Test Item Value Reference Range Interpretation Comments Anion Gap (test code = 63393-2) 14.4 8-16 [facility] HospitalBlood Urea Ufyaxvms4358-70-31 13:40:00* Test Item Value Reference Range Interpretation Comments Blood Urea Nitrogen (test code = 3094-0) 34 7-26 H [facility] HospitalCreatinine2019-05-05 13:40:00* Test Item Value Reference Range Interpretation Comments Creatinine (test code = 2160-0) 2.63 0.72-1.25 H [facility] HospitalBUN/Creatinine Uopny3642-06-16 13:40:00* Test Item Value Reference Range Interpretation Comments BUN/Creatinine Ratio (test code = 3097-3) 13 6-25 [facility] HospitalEstimat Glomerular Filtration Rate 2018-06-27 13:40:00* Test Item Value Reference Range Interpretation Comments Estimat Glomerular Filtration Rate (test code = 224396518) 28 >60 L Ranges were taken from the National Kidney Disease Education Program and the [facility] Kid[facility] Foundation literature.Reference ranges:60 or greater: Hymqgr24-98 ( for 3 consecutive months): Chronic kidney disease 15 or less: Kidney failureGonzales Memorial HospitalGlucose Mqehz4645-52-26 13:40:00* Test Item Value Reference Range Interpretation Comments Glucose Level (test code = MZW4421) 105 74-118 [facility] HospitalCalcium Wwtbb6753-68-36 13:40:00* Test Item Value Reference Range Interpretation Comments Calcium Level (test code = 01070-3) 7.1 8.4-10.2 L [facility] HospitalBedside Doxeyvf4475-87-08 11:50:00* Test Item Value Reference Range Interpretation Comments Bedside Glucose (test code = 32701-6) 160 70-120 H Meter ID: [id number] [facility] HospitalBlood Culture 2018-06-25 17:11:00* Test Item Value Reference Range Interpretation Comments Blood Culture (test code = 93104898) NO GROWTH AFTER 5 DAYS, FINAL REPORT [facility] HospitalBl[facility] Xxaegjo8226-04-86 17:11:00* Test Item Value Reference Range Interpretation Comments Blood Culture (test code = 87483188) NO GROWTH AFTER 5 DAYS, FINAL REPORT [facility] HospitalWhite Blood Jvhzh1035-28-31 06:01:00* Test Item Value Reference Range Interpretation Comments White Blood Count (test code = 6690-2) 4.22 4.8-10.8 L [facility] HospitalRed Blood Vgbjf8648-82-58 06:01:00* Test Item Value Reference Range Interpretation Comments Red Blood Count (test code = 789-8) 3.20 4.3-5.7 L [facility] HospitalHemoglobin2019-05-03 06:01:00* Test Item Value Reference Range Interpretation Comments Hemoglobin (test code = 26900-4) 8.6 14.0-18.0 L [facility] HospitalHematocrit2019-05-03 06:01:00* Test Item Value Reference Range Interpretation Comments Hematocrit (test code = 4544-3) 26.0 38.2-49.6 L [facility] HospitalMean Corpuscular Jksqkh6498-46-50 06:01:00* Test Item Value Reference Range Interpretation Comments Mean Corpuscular Volume (test code = 787-2) 81.3 81-99 [facility] HospitalMean Corpuscular Cmdmikrmhc2778-61-36 06:01:00* Test Item Value Reference Range Interpretation Comments Mean Corpuscular Hemoglobin (test code = 785-6) 26.9 28-32 L [facility] HospitalMean Corpuscular Hemoglobin Concent 2018-06-25 06:01:00* Test Item Value Reference Range Interpretation Comments Mean Corpuscular Hemoglobin Concent (test code = 786-4) 33.1 31-35 [facility] HospitalRed Cell Distribution Cwveo8922-79-92 06:01:00* Test Item Value Reference Range Interpretation Comments Red Cell Distribution Width (test code = 76852-1) 13.7 11.7 -14.4 [facility] HospitalPlatelet Mvfxg5922-15-47 06:01:00* Test Item Value Reference Range Interpretation Comments Platelet Count (test code = 777-3) 147 140-360 [facility] HospitalNeutrophils (%) (Auto)2018-06-25 06:01:00 * Test Item Value Reference Range Interpretation Comments Neutrophils (%) (Auto) (test code = 70449-0) 56.1 38.7-80.0 [facility] HospitalLymphocytes (%) (Auto)2018-06-25 06:01:00 * Test Item Value Reference Range Interpretation Comments Lymphocytes (%) (Auto) (test code = 736-9) 32.0 18.0-39.1 [facility] HospitalMonocytes (%) (Auto)2018-06-25 06:01:00* Test Item Value Reference Range Interpretation Comments Monocytes (%) (Auto) (test code = 5905-5) 5.7 4.4-11.3 [facility] HospitalEosinophils (%) (Auto)2018-06-25 06:01:00 * Test Item Value Reference Range Interpretation Comments Eosinophils (%) (Auto) (test code = 713-8) 3.8 0.0-6.0 [facility] HospitalBasophils (%) (Auto)2018-06-25 06:01:00* Test Item Value Reference Range Interpretation Comments Basophils (%) (Auto) (test code = 706-2) 0.5 0.0-1.0 [facility] HospitalIM GRANULOCYTES %2018-06-25 06:01:00* Test Item Value Reference Range Interpretation Comments IM GRANULOCYTES % (test code = IM GRANULOCYTES %) 1.9 0.0- 1.0 H [facility] HospitalNeutrophils # (Auto)2018-06-25 06:01:00* Test Item Value Reference Range Interpretation Comments Neutrophils # (Auto) (test code = 751-8) 2.4 2.1-6.9 [facility] HospitalLymphocytes # (Auto)2018-06-25 06:01:00* Test Item Value Reference Range Interpretation Comments Lymphocytes # (Auto) (test code = 95415-5) 1.4 1.0-3.2 [facility] HospitalMonocytes # (Auto)2018-06-25 06:01:00* Test Item Value Reference Range Interpretation Comments Monocytes # (Auto) (test code = 742-7) 0.2 0.2-0.8 [facility] HospitalEosinophils # (Auto)2018-06-25 06:01:00* Test Item Value Reference Range Interpretation Comments Eosinophils # (Auto) (test code = 711-2) 0.2 0.0-0.4 [facility] HospitalBasophils # (Auto)2018-06-25 06:01:00* Test Item Value Reference Range Interpretation Comments Basophils # (Auto) (test code = 704-7) 0.0 0.0-0.1 [facility] HospitalAbsolute Immature Granulocyte (auto 2018-06-25 06:01:00* Test Item Value Reference Range Interpretation Comments Absolute Immature Granulocyte (auto (shin t code = Absolute Immature Granulocyte (auto) 0.08 0-0.1 [facility] HospitalFerritin2019-05-01 08:32:00* Test Item Value Reference Range Interpretation Comments Ferritin (test code = 2276-4) 273.51 21.81-274.66 [facility] HospitalIron Rgbjj8374-20-89 06:46:00* Test Item Value Reference Range Interpretation Comments Iron Level (test code = 2498-4) 71 65-175 [facility] HospitalTotal Iron Binding Qaoszcbe9616-86-58 06:46:00* Test Item Value Reference Range Interpretation Comments Total Iron Binding Capacity (test code = 2500-7) 217 261-4 78 L [facility] HospitalPercent Iron Tnfcllpzkn7425-23-33 06:46:00* Test Item Value Reference Range Interpretation Comments Percent Iron Saturation (test code = 2502-3) 33 15-50 [facility] HospitalTransferrin2019-05-01 06:46:00* Test Item Value Reference Range Interpretation Comments Transferrin (test code = 3034-6) 155 174-364 L [facility] HospitalPhosphorus Rjcjy1467-61-39 06:11:00* Test Item Value Reference Range Interpretation Comments Phosphorus Level (test code = PNG7330) 4.8 2.3-4.7 H [facility] HospitalMagnesium Kedkh4778-59-97 06:11:00* Test Item Value Reference Range Interpretation Comments Magnesium Level (test code = 14882-5) 1.2 1.3-2.1 L [facility] HospitalUrine Random Total Irfacsv2436-88-40 18:31:00* Test Item Value Reference Range Interpretation Comments Urine Random Total Protein (test code = 2888-6) 227.6 1-14 H [facility] HospitalUrine Protein/Creatinine Zilkk2098-34-37 18:31:00* Test Item Value Reference Range Interpretation Comments Urine Protein/Creatinine Ratio (test code = 02819-4) 2.00 [facility] HospitalUrine Random Total Lhjhxka4614-81-00 18:31:00* Test Item Value Reference Range Interpretation Comments Urine Random Total Protein (test code = 2888-6) 227.6 1-14 H [facility] HospitalUrine Protein/Creatinine Vmvmf0231-39-38 18:31:00* Test Item Value Reference Range Interpretation Comments Urine Protein/Creatinine Ratio (test code = 10785-7) 2.00 [facility] HospitalUrine Random Total Rhjmtqx8739-70-75 18:31:00* Test Item Value Reference Range Interpretation Comments Urine Random Total Protein (test code = 2888-6) 227.6 1-14 H [facility] HospitalUrine Protein/Creatinine Erslp2257-33-57 18:31:00* Test Item Value Reference Range Interpretation Comments Urine Protein/Creatinine Ratio (test code = 01500-1) 2.00 [facility] HospitalUrine Random Total Juiyvrf0478-30-51 18:31:00* Test Item Value Reference Range Interpretation Comments Urine Random Total Protein (test code = 2888-6) 227.6 1-14 H [facility] HospitalUrine Protein/Creatinine Pnttr0063-95-46 18:31:00* Test Item Value Reference Range Interpretation Comments Urine Protein/Creatinine Ratio (test code = 89418-0) 2.00 [facility] HospitalUrine Random Total Thtgwsw0560-52-04 18:31:00* Test Item Value Reference Range Interpretation Comments Urine Random Total Protein (test code = 2888-6) 227.6 1-14 H [facility] HospitalUrine Protein/Creatinine Aedzj0254-61-82 18:31:00* Test Item Value Reference Range Interpretation Comments Urine Protein/Creatinine Ratio (test code = 78840-1) 2.00 [facility] HospitalUrine Random Total Kklflra6652-84-13 18:31:00* Test Item Value Reference Range Interpretation Comments Urine Random Total Protein (test code = 2888-6) 227.6 1-14 H [facility] HospitalUrine Protein/Creatinine Pdlnn2267-46-49 18:31:00* Test Item Value Reference Range Interpretation Comments Urine Protein/Creatinine Ratio (test code = 26039-2) 2.00 [facility] HospitalUrine Hxuohfffyb6781-53-69 18:19:00* Test Item Value Reference Range Interpretation Comments Urine Creatinine (test code = 2161-8) 76.55 63-166 [facility] HospitalUrine Zrzxqxzxed4744-12-36 18:19:00* Test Item Value Reference Range Interpretation Comments Urine Creatinine (test code = 2161-8) 76.55 63-166 [facility] HospitalUrine Eikdzczrzu2096-46-64 18:19:00* Test Item Value Reference Range Interpretation Comments Urine Creatinine (test code = 2161-8) 76.55 63-166 [facility] HospitalUrine Iocimnmdbn3262-16-35 18:19:00* Test Item Value Reference Range Interpretation Comments Urine Creatinine (test code = 2161-8) 76.55 63-166 [facility] HospitalUrine Qgwvmjqemh1307-89-43 18:19:00* Test Item Value Reference Range Interpretation Comments Urine Creatinine (test code = 2161-8) 76.55 63-166 [facility] HospitalUrine Pmrqepyyab0268-33-90 18:19:00* Test Item Value Reference Range Interpretation Comments Urine Creatinine (test code = 2161-8) 76.55 63-166 [facility] HospitalTotal Vtzzxqgmz3450-63-26 06:25:00* Test Item Value Reference Range Interpretation Comments Total Bilirubin (test code = 1975-2) 0.2 0.2-1.2 [facility] HospitalAspartate Amino Transf (AST/SGOT) 2018-06-22 06:25:00* Test Item Value Reference Range Interpretation Comments Aspartate Amino Transf (AST/SGOT) (test code = Aspartate Amino Transf (AST/SGOT)) 86 5-34 H [facility] HospitalAlanine Aminotransferase (ALT/SGPT) 2018-06-22 06:25:00* Test Item Value Reference Range Interpretation Comments Alanine Aminotransferase (ALT/SGPT) (test code = 1742-6) 76 0-55 H [facility] Hfnixxn4493-68-41 06:25:00* Test Item Value Reference Range Interpretation Comments Total Protein (test code = 2885-2) 6.8 6.5-8.1 [facility] HospitalAlbumin2019-04-30 06:25:00* Test Item Value Reference Range Interpretation Comments Albumin (test code = 1751-7) 2.1 3.5-5.0 L [facility] HospitalGlobulin2019-04-30 06:25:00* Test Item Value Reference Range Interpretation Comments Globulin (test code = 38465-4) 4.7 2.3-3.5 H [facility] HospitalAlbumin/Globulin Fjwbo5155-21-81 06:25:00 * Test Item Value Reference Range Interpretation Comments Albumin/Globulin Ratio (test code = 1759-0) 0.4 0.8-2.0 L [facility] HospitalAlkaline Jqvykvaymct5172-50-82 06:25:00* Test Item Value Reference Range Interpretation Comments Alkaline Phosphatase (test code = 6768-6) 265 40-150 H [facility] HospitalHemoglobin A1c Ewctgkt2386-36-66 06:11:00 * Test Item Value Reference Range Interpretation Comments Hemoglobin A1c Percent (test code = Hemoglobin A1c Percent) 5.7 4.0-7.0 [facility] HospitalHemoglobin A1c Dofuoir0742-50-16 06:11:00 * Test Item Value Reference Range Interpretation Comments Hemoglobin A1c Percent (test code = Hemoglobin A1c Percent) 5.7 4.0-7.0 [facility] HospitalHemoglobin A1c Uhwuaox1835-71-21 06:11:00 * Test Item Value Reference Range Interpretation Comments Hemoglobin A1c Percent (test code = Hemoglobin A1c Percent) 5.7 4.0-7.0 [facility] HospitalHemoglobin A1c Hitshic9641-57-50 06:11:00 * Test Item Value Reference Range Interpretation Comments Hemoglobin A1c Percent (test code = Hemoglobin A1c Percent) 5.7 4.0-7.0 [facility] HospitalHemoglobin A1c Tckiivw0666-00-37 06:11:00 * Test Item Value Reference Range Interpretation Comments Hemoglobin A1c Percent (test code = Hemoglobin A1c Percent) 5.7 4.0-7.0 [facility] HospitalHemoglobin A1c Uyvovgq5663-69-44 06:11:00 * Test Item Value Reference Range Interpretation Comments Hemoglobin A1c Percent (test code = Hemoglobin A1c Percent) 5.7 4.0-7.0 [facility] HospitalVitamin B12 Tdecq7022-06-14 11:07:00* Test Item Value Reference Range Interpretation Comments Vitamin B12 Level (test code = 35099-9) 403 213816 [facility] HospitalFolate2019-04-29 11:07:00* Test Item Value Reference Range Interpretation Comments Folate (test code = 2284-8) 7.2 7.0-15.4 [facility] HospitalVitamin B12 Pwcfj5702-09-00 11:07:00* Test Item Value Reference Range Interpretation Comments Vitamin B12 Level (test code = 17171-0) 403 213-816 [facility] HospitalFolate2019-04-29 11:07:00* Test Item Value Reference Range Interpretation Comments Folate (test code = 2284-8) 7.2 7.0-15.4 [facility] HospitalVitamin B12 Ejvhq4990-93-21 11:07:00* Test Item Value Reference Range Interpretation Comments Vitamin B12 Level (test code = 74394-1) 403 213-816 [facility] HospitalFolate2019-04-29 11:07:00* Test Item Value Reference Range Interpretation Comments Folate (test code = 2284-8) 7.2 7.0-15.4 [facility] HospitalVitamin B12 Gfqjv6485-08-10 11:07:00* Test Item Value Reference Range Interpretation Comments Vitamin B12 Level (test code = 70657-9) 403 213-816 [facility] HospitalFolate2019-04-29 11:07:00* Test Item Value Reference Range Interpretation Comments Folate (test code = 2284-8) 7.2 7.0-15.4 [facility] HospitalVitamin B12 Muuff6097-98-16 11:07:00* Test Item Value Reference Range Interpretation Comments Vitamin B12 Level (test code = 96132-4) 403 213-816 [facility] HospitalFolate2019-04-29 11:07:00* Test Item Value Reference Range Interpretation Comments Folate (test code = 2284-8) 7.2 7.0-15.4 [facility] HospitalVitamin B12 Ogeda2621-56-10 11:07:00* Test Item Value Reference Range Interpretation Comments Vitamin B12 Level (test code = 81928-5) 403 213-816 [facility] HospitalFolate2019-04-29 11:07:00* Test Item Value Reference Range Interpretation Comments Folate (test code = 2284-8) 7.2 7.0-15.4 [facility] HospitalThyroid Stimulating Hormone (TSH) 2018-06-21 11:06:00* Test Item Value Reference Range Interpretation Comments Thyroid Stimulating Hormone (TSH) (test code = 74192-4) 2.156 0.350-4.940 [facility] HospitalThyroid Stimulating Hormone (TSH) 2018-06-21 11:06:00* Test Item Value Reference Range Interpretation Comments Thyroid Stimulating Hormone (TSH) (test code = 71198-0) 2.156 0.350-4.940 [facility] HospitalThyroid Stimulating Hormone (TSH) 2018-06-21 11:06:00* Test Item Value Reference Range Interpretation Comments Thyroid Stimulating Hormone (TSH) (test code = 94200-6) 2.156 0.350-4.940 [facility] HospitalThyroid Stimulating Hormone (TSH) 2018-06-21 11:06:00* Test Item Value Reference Range Interpretation Comments Thyroid Stimulating Hormone (TSH) (test code = 47920-3) 2.156 0.350-4.940 [facility] HospitalThyroid Stimulating Hormone (TSH) 2018-06-21 11:06:00* Test Item Value Reference Range Interpretation Comments Thyroid Stimulating Hormone (TSH) (test code = 76865-1) 2.156 0.350-4.940 [facility] HospitalThyroid Stimulating Hormone (TSH) 2018-06-21 11:06:00* Test Item Value Reference Range Interpretation Comments Thyroid Stimulating Hormone (TSH) (test code = 97034-3) 2.156 0.350-4.940 [facility] HospitalUrine AXL2963-88-53 17:46:00* Test Item Value Reference Range Interpretation Comments Urine WBC (test code = 5821-4) >50 0-5 H [facility] HospitalUrine EVR2720-01-76 17:46:00* Test Item Value Reference Range Interpretation Comments Urine RBC (test code = 20082-9) >50 0-5 H [facility] HospitalUrine Uobmtjac2490-92-20 17:46:00* Test Item Value Reference Range Interpretation Comments Urine Bacteria (test code = 83286-7) MANY NONE H [facility] HospitalUrine Epithelial Qwtvw3640-68-36 17:46:00 * Test Item Value Reference Range Interpretation Comments Urine Epithelial Cells (test code = 13442-3) FEW NONE [facility] HospitalUrine Fine Granular Dmpns3966-97-10 17:46:00* Test Item Value Reference Range Interpretation Comments Urine Fine Granular Casts (test code = 92174-9) 1-5 >0 H [facility] HospitalUrine Coarse Granular Opqmt5665-79-56 17:46:00* Test Item Value Reference Range Interpretation Comments Urine Coarse Granular Casts (test code = 94593-7) 1-5 >0 H [facility] HospitalUrine Fine Granular Awunf2591-25-61 17:46:00* Test Item Value Reference Range Interpretation Comments Urine Fine Granular Casts (test code = 84495-6) 1-5 >0 H [facility] HospitalUrine Coarse Granular Xaksb5436-27-53 17:46:00* Test Item Value Reference Range Interpretation Comments Urine Coarse Granular Casts (test code = 84097-9) 1-5 >0 H [facility] HospitalUrine Fine Granular Ltazw9697-49-25 17:46:00* Test Item Value Reference Range Interpretation Comments Urine Fine Granular Casts (test code = 87365-6) 1-5 >0 H [facility] HospitalUrine Coarse Granular Mgbol8409-84-57 17:46:00* Test Item Value Reference Range Interpretation Comments Urine Coarse Granular Casts (test code = 69915-0) 1-5 >0 H [facility] HospitalUrine Fine Granular Gpmgo3724-05-18 17:46:00* Test Item Value Reference Range Interpretation Comments Urine Fine Granular Casts (test code = 38323-9) 1-5 >0 H [facility] HospitalUrine Coarse Granular Syodh7830-43-65 17:46:00* Test Item Value Reference Range Interpretation Comments Urine Coarse Granular Casts (test code = 14488-7) 1-5 >0 H [facility] HospitalUrine Fine Granular Vqcot5079-91-61 17:46:00* Test Item Value Reference Range Interpretation Comments Urine Fine Granular Casts (test code = 95231-0) 1-5 >0 H [facility] HospitalUrine Coarse Granular Cqipx9965-19-42 17:46:00* Test Item Value Reference Range Interpretation Comments Urine Coarse Granular Casts (test code = 16040-8) 1-5 >0 H [facility] HospitalUrine Fine Granular Vpiek4606-10-02 17:46:00* Test Item Value Reference Range Interpretation Comments Urine Fine Granular Casts (test code = 18624-0) 1-5 >0 H [facility] HospitalUrine Coarse Granular Mebxp9280-27-53 17:46:00* Test Item Value Reference Range Interpretation Comments Urine Coarse Granular Casts (test code = 23098-8) 1-5 >0 H [facility] HospitalUrine Hhxqr1591-13-32 17:30:00* Test Item Value Reference Range Interpretation Comments Urine Color (test code = 5778-6) YELLOW YELLOW [facility] HospitalUrine Uamknpq2638-16-17 17:30:00* Test Item Value Reference Range Interpretation Comments Urine Clarity (test code = 15552-0) CLOUDY CLEAR H [facility] HospitalUrine Specific Zngevwz7525-26-73 17:30:00 * Test Item Value Reference Range Interpretation Comments Urine Specific [place] (test code = 5811-5) 1.020 1.010-1.02 5 [facility] HospitalUrine fS7134-00-62 17:30:00* Test Item Value Reference Range Interpretation Comments Urine pH (test code = 04149-1) 6 5-7 [facility] HospitalUrine Leukocyte Nabafbpy6477-71-06 17:30:00* Test Item Value Reference Range Interpretation Comments Urine Leukocyte Esterase (test code = 5799-2) 1+ NEGATIVE H [facility] HospitalUrine Dzrdxpn3016-51-09 17:30:00* Test Item Value Reference Range Interpretation Comments Urine Nitrite (test code = 82496-7) NEGATIVE NEGATIVE [facility] HospitalUrine Kvtegcs3000-17-07 17:30:00* Test Item Value Reference Range Interpretation Comments Urine Protein (test code = 5804-0) 3+ NEGATIVE H [facility] HospitalUrine Glucose (UA)2018-06-20 17:30:00* Test Item Value Reference Range Interpretation Comments Urine Glucose (UA) (test code = 2349-9) 1+ NEGATIVE H [facility] Rltzssd4716-42-75 17:30:00* Test Item Value Reference Range Interpretation Comments Urine Ketones (test code = 60261-6) NEGATIVE NEGATIVE [facility] Iqiydhmibrav0123-10-94 17:30:00* Test Item Value Reference Range Interpretation Comments Urine Urobilinogen (test code = 97462-4) 0.2 0.2-1 [facility] Kecuqfojo7140-86-17 17:30:00* Test Item Value Reference Range Interpretation Comments Urine Bilirubin (test code = 1978-6) NEGATIVE NEGATIVE [facility] Tsvbf2628-32-92 17:30:00* Test Item Value Reference Range Interpretation Comments Urine Blood (test code = 30214-1) 4+ NEGATIVE H [facility] HospitalBedside Dzbeier7030-33-42 16:10:00* Test Item Value Reference Range Interpretation Comments Bedside Glucose (test code = 41303-7) 72 70-120 Meter ID: [id number] [facility] Center Culture 2018-05-07 07:13:00* Test Item Value Reference Range Interpretation Comments Urine Culture (test code = 630-4) Organism: PSEUDOMONAS AERUGINOSA [facility] Hhwmdzl4113-37-21 07:13:00* Test Item Value Reference Range Interpretation Comments Urine Culture (test code = 630-4) Organism: PSEUDOMONAS AERUGINOSA [facility] Svtphld1381-90-88 07:13:00* Test Item Value Reference Range Interpretation Comments Urine Culture (test code = 630-4) Organism: PSEUDOMONAS AERUGINOSA [facility] Uhquqcz7129-46-27 07:13:00* Test Item Value Reference Range Interpretation Comments Urine Culture (test code = 630-4) Organism: PSEUDOMONAS AERUGINOSA [facility] Oqyopcl6843-61-21 07:13:00* Test Item Value Reference Range Interpretation Comments Urine Culture (test code = 630-4) Organism: PSEUDOMONAS AERUGINOSA [facility] Hcuqarc5643-28-11 07:13:00* Test Item Value Reference Range Interpretation Comments Urine Culture (test code = 630-4) No Result Data [facility]ided [facility] Kpyyy5125-86-39 06:43:00* Test Item Value Reference Range Interpretation Comments Sodium Level (test code = 2951-2) 136 136-145 [facility] HospitalPotassium Pljad0821-49-81 06:43:00* Test Item Value Reference Range Interpretation Comments Potassium Level (test code = 2823-3) 5.2 3.5-5.1 H [facility] HospitalChloride Pqpdg1942-62-24 06:43:00* Test Item Value Reference Range Interpretation Comments Chloride Level (test code = 2075-0) 111 98-107 H [facility] HospitalCarbon Dioxide Fzdww2277-72-36 06:43:00* Test Item Value Reference Range Interpretation Comments Carbon Dioxide Level (test code = 2028-9) 21 22-29 L [facility] HospitalAnion Trx8589-99-81 06:43:00* Test Item Value Reference Range Interpretation Comments Anion Gap (test code = 38813-4) 9.2 8-16 [facility] HospitalBlood Urea Oztolasq4184-90-98 06:43:00* Test Item Value Reference Range Interpretation Comments Blood Urea Nitrogen (test code = 3094-0) 26 7-26 [facility] HospitalCreatinine2019-03-14 06:43:00* Test Item Value Reference Range Interpretation Comments Creatinine (test code = 2160-0) 2.22 0.72-1.25 H [facility] HospitalBUN/Creatinine Vewbs1843-47-40 06:43:00* Test Item Value Reference Range Interpretation Comments BUN/Creatinine Ratio (test code = 3097-3) 12 6-25 [facility] HospitalEstimat Glomerular Filtration Rate 2018-05-06 06:43:00* Test Item Value Reference Range Interpretation Comments Estimat Glomerular Filtration Rate (test code = 815679835) 33 >60 L Ranges were taken from the National Kidney Disease Education Program and the [facility] literature.Reference ranges:60 or greater: Oyobqo01-52 ( for 3 consecutive months): Chronic kidney disease 15 or less: Kidney failureGonzales Memorial HospitalGlucose Mqrqe3783-45-79 06:43:00* Test Item Value Reference Range Interpretation Comments Glucose Level (test code = PJZ8085) 144 74-118 H [facility] HospitalCalcium Plsff4459-32-07 06:43:00* Test Item Value Reference Range Interpretation Comments Calcium Level (test code = 13711-9) 6.5 8.4-10.2 LL Results repeated and called to RANULFO ALATORRE RN at 0641 on 05/06/18 by Morenita Guy. Read back and verified.[facility] HospitalWhite Blood Dvdxu1481-61-30 06:20:00* Test Item Value Reference Range Interpretation Comments White Blood Count (test code = 6690-2) 3.55 4.8-10.8 L [facility] HospitalRed Blood Fohak8729-89-11 06:20:00* Test Item Value Reference Range Interpretation Comments Red Blood Count (test code = 789-8) 3.25 4.3-5.7 L [facility] HospitalHemoglobin2019-03-14 06:20:00* Test Item Value Reference Range Interpretation Comments Hemoglobin (test code = 99659-4) 8.6 14.0-18.0 L [facility] HospitalHematocrit2019-03-14 06:20:00* Test Item Value Reference Range Interpretation Comments Hematocrit (test code = 4544-3) 27.2 38.2-49.6 L [facility] HospitalMean Corpuscular Ivwsdf9447-23-44 06:20:00* Test Item Value Reference Range Interpretation Comments Mean Corpuscular Volume (test code = 787-2) 83.7 81-99 [facility] HospitalMean Corpuscular Gwlobfrpka8545-01-03 06:20:00* Test Item Value Reference Range Interpretation Comments Mean Corpuscular Hemoglobin (test code = 785-6) 26.5 28-32 L [facility] HospitalMean Corpuscular Hemoglobin Concent 2018-05-06 06:20:00* Test Item Value Reference Range Interpretation Comments Mean Corpuscular Hemoglobin Concent (test code = 786-4) 31.6 31-35 [facility] HospitalRed Cell Distribution Lpdcw0591-72-51 06:20:00* Test Item Value Reference Range Interpretation Comments Red Cell Distribution Width (test code = 12488-8) 14.6 11.7 -14.4 H [facility] HospitalPlatelet Sbhxp1485-31-24 06:20:00* Test Item Value Reference Range Interpretation Comments Platelet Count (test code = 777-3) 113 140-360 L [facility] HospitalNeutrophils (%) (Auto)2018-05-06 06:20:00 * Test Item Value Reference Range Interpretation Comments Neutrophils (%) (Auto) (test code = 16165-2) 59.6 38.7-80.0 [facility] HospitalLymphocytes (%) (Auto)2018-05-06 06:20:00 * Test Item Value Reference Range Interpretation Comments Lymphocytes (%) (Auto) (test code = 736-9) 24.8 18.0-39.1 [facility] HospitalMonocytes (%) (Auto)2018-05-06 06:20:00* Test Item Value Reference Range Interpretation Comments Monocytes (%) (Auto) (test code = 5905-5) 8.5 4.4-11.3 [facility] HospitalEosinophils (%) (Auto)2018-05-06 06:20:00 * Test Item Value Reference Range Interpretation Comments Eosinophils (%) (Auto) (test code = 713-8) 5.1 0.0-6.0 [facility] HospitalBasophils (%) (Auto)2018-05-06 06:20:00* Test Item Value Reference Range Interpretation Comments Basophils (%) (Auto) (test code = 706-2) 0.6 0.0-1.0 [facility] HospitalIM GRANULOCYTES %2018-05-06 06:20:00* Test Item Value Reference Range Interpretation Comments IM GRANULOCYTES % (test code = IM GRANULOCYTES %) 1.4 0.0- 1.0 H [facility] HospitalNeutrophils # (Auto)2018-05-06 06:20:00* Test Item Value Reference Range Interpretation Comments Neutrophils # (Auto) (test code = 751-8) 2.1 2.1-6.9 [facility] HospitalLymphocytes # (Auto)2018-05-06 06:20:00* Test Item Value Reference Range Interpretation Comments Lymphocytes # (Auto) (test code = 75660-9) 0.9 1.0-3.2 L [facility] HospitalMonocytes # (Auto)2018-05-06 06:20:00* Test Item Value Reference Range Interpretation Comments Monocytes # (Auto) (test code = 742-7) 0.3 0.2-0.8 [facility] HospitalEosinophils # (Auto)2018-05-06 06:20:00* Test Item Value Reference Range Interpretation Comments Eosinophils # (Auto) (test code = 711-2) 0.2 0.0-0.4 [facility] HospitalBasophils # (Auto)2018-05-06 06:20:00* Test Item Value Reference Range Interpretation Comments Basophils # (Auto) (test code = 704-7) 0.0 0.0-0.1 [facility] HospitalAbsolute Immature Granulocyte (auto 2018-05-06 06:20:00* Test Item Value Reference Range Interpretation Comments Absolute Immature Granulocyte (auto (shin t code = Absolute Immature Granulocyte (auto) 0.05 0-0.1 [facility] [facility] Nztdwcimx0396-52-37 06:21:00* Test Item Value Reference Range Interpretation Comments Total Bilirubin (test code = 1975-2) 0.2 0.2-1.2 [facility] HospitalAspartate Amino Transf (AST/SGOT) 2018-05-05 06:21:00* Test Item Value Reference Range Interpretation Comments Aspartate Amino Transf (AST/SGOT) (test code = Aspartate Amino Transf (AST/SGOT)) 31 5-34 [facility] HospitalAlanine Aminotransferase (ALT/SGPT) 2018-05-05 06:21:00* Test Item Value Reference Range Interpretation Comments Alanine Aminotransferase (ALT/SGPT) (test code = 1742-6) 44 0-55 [facility]Total Knzinse5212-78-48 06:21:00* Test Item Value Reference Range Interpretation Comments Total Protein (test code = 2885-2) 6.6 6.5-8.1 [facility] HospitalAlbumin2019-03-13 06:21:00* Test Item Value Reference Range Interpretation Comments Albumin (test code = 1751-7) 2.4 3.5-5.0 L [facility] HospitalGlobulin2019-03-13 06:21:00* Test Item Value Reference Range Interpretation Comments Globulin (test code = 05752-1) 4.2 2.3-3.5 H [facility] HospitalAlbumin/Globulin Yaoaa1935-40-38 06:21:00 * Test Item Value Reference Range Interpretation Comments Albumin/Globulin Ratio (test code = 1759-0) 0.6 0.8-2.0 L [facility] HospitalAlkaline Bdvoykpuszy9665-54-00 06:21:00* Test Item Value Reference Range Interpretation Comments Alkaline Phosphatase (test code = 6768-6) 272 40-150 H [facility] HospitalUrine Aluqc6542-14-75 01:32:00* Test Item Value Reference Range Interpretation Comments Urine Color (test code = 5778-6) YELLOW YELLOW [facility] HospitalUrine Meegyxl8207-54-56 01:32:00* Test Item Value Reference Range Interpretation Comments Urine Clarity (test code = 85305-8) CLOUDY CLEAR H [facility] HospitalUrine Specific Laobdas8466-21-98 01:32:00 * Test Item Value Reference Range Interpretation Comments Urine Specific [place] (test code = 5811-5) 1.025 1.010-1.02 5 [facility] HospitalUrine iN3577-51-82 01:32:00* Test Item Value Reference Range Interpretation Comments Urine pH (test code = 27432-1) 6 5-7 [facility] HospitalU[facility] Leukocyte Trqgkeev5614-20-61 01:32:00* Test Item Value Reference Range Interpretation Comments Urine Leukocyte Esterase (test code = 5799-2) 2+ NEGATIVE H [facility] Gmubpho8558-05-12 01:32:00* Test Item Value Reference Range Interpretation Comments Urine Nitrite (test code = 13688-1) POSITIVE NEGATIVE H [facility] HospitalU[facility] Zkyflpr8840-02-60 01:32:00* Test Item Value Reference Range Interpretation Comments Urine Protein (test code = 5804-0) 3+ NEGATIVE H [facility] Glucose (UA)2018-05-04 01:32:00* Test Item Value Reference Range Interpretation Comments Urine Glucose (UA) (test code = 2349-9) 1+ NEGATIVE H [facility] Ouatffo5747-65-73 01:32:00* Test Item Value Reference Range Interpretation Comments Urine Ketones (test code = 70890-9) NEGATIVE NEGATIVE [facility] Ltfkgiavowxc9598-88-80 01:32:00* Test Item Value Reference Range Interpretation Comments Urine Urobilinogen (test code = 96899-6) 0.2 0.2-1 [facility] Vtmxpdsab9659-63-02 01:32:00* Test Item Value Reference Range Interpretation Comments Urine Bilirubin (test code = 1978-6) NEGATIVE NEGATIVE [facility] Qduiv1791-85-01 01:32:00* Test Item Value Reference Range Interpretation Comments Urine Blood (test code = 91906-5) 4+ NEGATIVE H [facility] TLM9273-44-52 01:32:00* Test Item Value Reference Range Interpretation Comments Urine WBC (test code = 5821-4) >50 0-5 H [facility] MFL3653-25-38 01:32:00* Test Item Value Reference Range Interpretation Comments Urine RBC (test code = 62967-8) 21-50 0-5 H [facility] Pgopimay4963-31-01 01:32:00* Test Item Value Reference Range Interpretation Comments Urine Bacteria (test code = 45424-7) MANY NONE H [facility] Epithelial Sppkk1322-00-28 01:32:00 * Test Item Value Reference Range Interpretation Comments Urine Epithelial Cells (test code = 35461-0) RARE NONE [facility] HospitalInfluenza Virus Types A,B Antigen 2018-05-04 01:16:00* Test Item Value Reference Range Interpretation Comments Influenza Virus Types A,B Antigen (test code = 43084-1) NEGATIVE NEGATIVE [facility] A Streptococcus Skajey0203-71-33 01:16:00* Test Item Value Reference Range Interpretation Comments Group A Streptococcus Screen (test code = 16270-8) NEGATIVE NEG ATIVE [facility] HospitalInfluenza Virus Types A,B Antigen 2018-05-04 01:16:00* Test Item Value Reference Range Interpretation Comments Influenza Virus Types A,B Antigen (test code = 39181-5) NEGATIVE NEGATIVE [facility] Streptococcus Odebkq8301-61-85 01:16:00* Test Item Value Reference Range Interpretation Comments Group A Streptococcus Screen (test code = 70161-5) NEGATIVE NEG ATIVE [facility] HospitalInfluenza Virus Types A,B Antigen 2018-05-04 01:16:00* Test Item Value Reference Range Interpretation Comments Influenza Virus Types A,B Antigen (test code = 95696-9) NEGATIVE NEGATIVE [facility] A Streptococcus Sbxxnf3546-83-78 01:16:00* Test Item Value Reference Range Interpretation Comments Group A Streptococcus Screen (test code = 55024-8) NEGATIVE NEG ATIVE [facility] HospitalInfluenza Virus Types A,B Antigen 2018-05-04 01:16:00* Test Item Value Reference Range Interpretation Comments Influenza Virus Types A,B Antigen (test code = 72510-7) NEGATIVE NEGATIVE [facility] A Streptococcus Lofxym9994-67-66 01:16:00* Test Item Value Reference Range Interpretation Comments Group A Streptococcus Screen (test code = 86710-0) NEGATIVE NEG ATIVE [facility] HospitalInfluenza Virus Types A,B Antigen 2018-05-04 01:16:00* Test Item Value Reference Range Interpretation Comments Influenza Virus Types A,B Antigen (test code = 07593-5) NEGATIVE NEGATIVE [facility] A Streptococcus Vprhsd1725-49-11 01:16:00* Test Item Value Reference Range Interpretation Comments Group A Streptococcus Screen (test code = 05174-1) NEGATIVE NEG ATIVE [facility] HospitalInfluenza Virus Types A,B Antigen 2018-05-04 01:16:00* Test Item Value Reference Range Interpretation Comments Influenza Virus Types A,B Antigen (test code = 46793-8) NEGATIVE NEGATIVE [facility] HospitalGroup A Streptococcus Fizfon1327-92-85 01:16:00* Test Item Value Reference Range Interpretation Comments Group A Streptococcus Screen (test code = 91180-4) NEGATIVE NEG ATIVE [facility] HospitalCT [facility]LV[facility] YQ5519-59-72 18:18:00 [place] [id number] [place] [address] Patient Name: MANJIT LUO MR #: [id number] : 1980 Age/Sex: 37/M Req #: [id number] Adm Physician: Ordered by: NORY LEYVA LEAD FABRICATOR Report #: [id number] Location: ER Room/Bed: Procedure: 0311-[address]/CT ABDOMEN/PELVIS WO Exam Date: 05/03/18 Exam T sage: 1743 REPORT STATUS: Signed EXAMINATION: CT of the abdomen and pelvis without contrast. TECHNIQUE: Spi ral CT images of the abdomen and pelvis were performed from the lung bases to the lesser trochanters. No intravenous contrast was given due to decreased GF R and history of iodine allergy. Coronal and sagittal reformatted images were obtained. COMPARISON: CT abdomen and pelvis without contrast 01/25/2017 CLINICAL HISTORY:Vomiting, mid abdominal pain for 2 days DISCUSSION: ABSENCE OF INTRAVENOUS CONTRAST DECREASES SENSITIVITY FOR DETECTION OF FOCAL LESIONS AND VASCULAR PATHOLOGY. ABDOMEN/PELVIS: LOWER THORAX: Unremark able. HEPATOBILIARY: No focal hepatic lesions. No intra or extrahepatic b iliary ductal dilation. GALLBLADDER: Cholecystectomy clips. SPL EEN: No splenomegaly. PANCREAS: No interval change in multiple dystrophic c alcifications predominantly involving the head, and to a lesser degree, body a nd tail, likely sequela of chronic pancreatitis. No focal mass or ductal dilat ion. No peripancreatic inflammatory changes. ADRENALS: No adrenal nodules . KIDNEYS/URETERS: No hydronephrosis, stones, or contour abnormalities. . PELVIC ORGANS/BLADDER: Bladder is decompressed and there is a suprapubic c atheter in place. Stable diffuse wall thickening. PERITONEUM/RETROPERITONEU M: No free air or fluid. LYMPH NODES: No intra-abdominal,retroperitoneal, p elvic or inguinal lymphadenopathy. VESSELS: Mild atherosclerotic calcific ation of the distal abdominal aorta. GI TRACT: No bowel dilation or evidenc e of obstruction. No pericolonic inflammatory changes. Appendix is well identi fied and normal in caliber. BONES AND SOFT TISSUES: No bony destructive les ions. No soft tissue abnormalities. IMPRESSION: 1. No acute a bdominopelvic abnormalities, within the limitations of this noncontrast exam. No bowel dilation or evidence of obstruction. 2. Stable pancreas findings c onsistent with sequela of chronic pancreatitis Signed by: Dr. Isma dodson M.D. on 05/03/2018 6:38 PM Dictated By: ISMA FATIMA MD [facility] Signed By: ISMA FATIMA MD on 05/03/181837 Transcribed By: TIFFANY on 05/03/181837 COPY TO: NORY LEYVA NP CHEST SINGLE (NOT PORTABLE)2018-05-03 16:44:00 [place] [address] Patient Name: MANJIT LUO MR #: [id number] : 1980 Age/Sex: 37/M Req #: [id number] Adm Physician: Ordered by: NORY LEYVA NP Report #: [id number] Location: ER Room/Bed: Procedure: 0311-007 2 DX/CHEST SINGLE (NOT PORTABLE) Exam Date: 05/03/18 Exam Time: 1615 REPORT STATUS: Sig sina EXAMINATION: CHEST SINGLE (NOT PORTABLE) INDICATION: Weakn ess. Fever. Chills. COMPARISON: Chest x-ray 08/29/2017. FINDINGS: AP view TUBES and LINES: None. LUNGS: Lungs are well inflated. Lungs are clear. There is no evidence of pneumonia or pulmonary edema. PL EURA: No pleural effusion or pneumothorax. HEART AND MEDIASTINUM: The car diomediastinal silhouette is unremarkable. BONES AND SOFT TISSUES: No acute osseous lesion. Soft tissues are unremarkable. UPPER ABDOMEN: No f ree air under the diaphragm. IMPRESSION: No acute thoracic abnormali ty. Signed by: Dr. Jimmy Gamez M.D. on 05/03/2018 4:45 PM Dictated By : JIMMY GAMEZ MD 44 Transcribed By: TIFFANY on 05/03/181644 COPY TO: NORY LEYVA NP Amylase Piuix3630-78-02 15:32:00* Test Item Value Reference Range Interpretation Comments Amylase Level (test code = 1798-8) [facility] HospitalLipase2019-03-11 15:32:00* Test Item Value Reference Range Interpretation Comments Lipase (test code = 3040-3) [facility] HospitalAmylase Erdsb5820-17-22 15:32:00* Test Item Value Reference Range Interpretation Comments Amylase Level (test code = 1798-8) 62 25-125 [facility] HospitalLipase2019-03-11 15:32:00* Test Item Value Reference Range Interpretation Comments Lipase (test code = 3040-3) [facility] HospitalAmylase Ooptm7766-18-12 15:32:00* Test Item Value Reference Range Interpretation Comments Amylase Level (test code = 1798-8) 62 [facility] HospitalLipase2019-03-11 15:32:00* Test Item Value Reference Range Interpretation Comments Lipase (test code = 3040-3) 14 [facility] HospitalAmylase Eqgri1168-73-31 15:32:00* Test Item Value Reference Range Interpretation Comments Amylase Level (test code = 1798-8) 62 [facility] HospitalLipase2019-03-11 15:32:00* Test Item Value Reference Range Interpretation Comments Lipase (test code = 3040-3) 14 [facility] HospitalAmylase Wmdvk2353-21-92 15:32:00* Test Item Value Reference Range Interpretation Comments Amylase Level (test code = 1798-8) 62 [facility] HospitalLipase2019-03-11 15:32:00* Test Item Value Reference Range Interpretation Comments Lipase (test code = 3040-3) 14 [facility] HospitalAmylase Jpwdi6922-45-05 15:32:00* Test Item Value Reference Range Interpretation Comments Amylase Level (test code = 1798-8) 62 [facility] HospitalLipase2019-03-11 15:32:00* Test Item Value Reference Range Interpretation Comments Lipase (test code = 3040-3) [facility] HospitalBlood Riiepqw4620-66-37 01:39:00* Test Item Value Reference Range Interpretation Comments Blood Culture (test code = 26555216) NO GROWTH AFTER 5 DAYS, FINAL REPORT [facility] HospitalBedside Zwxjhbm6634-14-07 08:10:00* Test Item Value Reference Range Interpretation Comments Bedside Glucose (test code = 70566-1) 190 70-120 H Meter ID: [id number] Memorial HospitalUrine Culture 2017-09-01 06:38:00* Test Item Value Reference Range Interpretation Comments Urine Culture (test code = 630-4) Organism: PSEUDOMONAS AERUGINOSA [facility] HospitalUrine Uiotmum2950-44-96 06:38:00* Test Item Value Reference Range Interpretation Comments Urine Culture (test code = 630-4) Organism: PSEUDOMONAS AERUGINOSA [facility] HospitalUrine Tdrfjie5468-73-99 06:38:00* Test Item Value Reference Range Interpretation Comments Urine Culture (test code = 630-4) Organism: PSEUDOMONAS AERUGINOSA [facility] HospitalBlood Ncuumff7188-66-08 01:39:00* Test Item Value Reference Range Interpretation Comments Blood Culture (test code = 61622388) NO GROWTH AFTER 72 HOURS [facility] Yeogn3843-88-74 05:13:00* Test Item Value Reference Range Interpretation Comments Sodium Level (test code = 2951-2) 136 136-145 [facility] HospitalPotassium Cmkdm4365-70-91 05:13:00* Test Item Value Reference Range Interpretation Comments Potassium Level (test code = 2823-3) 4.7 3.5-5.1 [facility] HospitalChloride Sdzox7681-88-11 05:13:00* Test Item Value Reference Range Interpretation Comments Chloride Level (test code = 2075-0) 109 98-107 H [facility] HospitalCarbon Dioxide Hguwv8952-35-05 05:13:00* Test Item Value Reference Range Interpretation Comments Carbon Dioxide Level (test code = 2028-9) 20 22-29 L [facility] HospitalAnion Ccn4973-32-89 05:13:00* Test Item Value Reference Range Interpretation Comments Anion Gap (test code = 79536-2) 11.7 8-16 [facility] HospitalBlood Urea Enwmskia6919-16-31 05:13:00* Test Item Value Reference Range Interpretation Comments Blood Urea Nitrogen (test code = 3094-0) 20 7-26 [facility] HospitalCreatinine2018-07-09 05:13:00* Test Item Value Reference Range Interpretation Comments Creatinine (test code = 2160-0) 1.79 0.72-1.25 H [facility] HospitalBUN/Creatinine Tojos7422-16-95 05:13:00* Test Item Value Reference Range Interpretation Comments BUN/Creatinine Ratio (test code = 3097-3) 11 6-25 [facility] HospitalEstimat Glomerular Filtration Rate 2017-08-31 05:13:00* Test Item Value Reference Range Interpretation Comments Estimat Glomerular Filtration Rate (test code = 70119-3) 43 >60 L Ranges were taken from the National Kidney Disease Education Program and the [facility] literature.Reference ranges:60 or greater: Unraiy36-46 ( for 3 consecutive months): Chronic kidney disease 15 or less: Kidney failureGonzales Memorial HospitalGlucose Xynjr9491-60-10 05:13:00* Test Item Value Reference Range Interpretation Comments Glucose Level (test code = OWJ9592) 165 74-118 H [facility] HospitalCalcium Scajl4211-31-28 05:13:00* Test Item Value Reference Range Interpretation Comments Calcium Level (test code = 62544-8) 8.2 8.4-10.2 L [facility] HospitalTomountainstar healthcare Qvvicklqr7262-25-28 05:11:00* Test Item Value Reference Range Interpretation Comments Total Bilirubin (test code = 1975-2) 0.5 0.2-1.2 [facility] HospitalAspartate Amino Transf (AST/SGOT) 2017-08-30 05:11:00* Test Item Value Reference Range Interpretation Comments Aspartate Amino Transf (AST/SGOT) (test code = Aspartate Amino Transf (AST/SGOT)) 14 5-34 [facility] HospitalAlanine Aminotransferase (ALT/SGPT) 2017-08-30 05:11:00* Test Item Value Reference Range Interpretation Comments Alanine Aminotransferase (ALT/SGPT) (test code = 1742-6) 40 0-55 [facility] HospitalTotal Yepemju8087-25-08 05:11:00* Test Item Value Reference Range Interpretation Comments Total Protein (test code = 2885-2) 7.4 6.5-8.1 [facility] HospitalAlbumin2018-07-08 05:11:00* Test Item Value Reference Range Interpretation Comments Albumin (test code = 1751-7) 2.8 3.5-5.0 L [facility] HospitalGlobulin2018-07-08 05:11:00* Test Item Value Reference Range Interpretation Comments Globulin (test code = 60084-4) 4.6 2.3-3.5 H [facility] HospitalAlbumin/Globulin Nxjen9097-66-08 05:11:00 * Test Item Value Reference Range Interpretation Comments Albumin/Globulin Ratio (test code = 1759-0) 0.6 0.8-2.0 L [facility] HospitalAlkaline Lqwkkiqzjsz4114-47-29 05:11:00* Test Item Value Reference Range Interpretation Comments Alkaline Phosphatase (test code = 6768-6) 234 40-150 H [facility] HospitalWhite Blood Uswst0501-49-79 04:54:00* Test Item Value Reference Range Interpretation Comments White Blood Count (test code = 6690-2) 5.33 4.8-10.8 [facility] HospitalRed Blood Vyjbs4818-97-93 04:54:00* Test Item Value Reference Range Interpretation Comments Red Blood Count (test code = 789-8) 3.61 4.3-5.7 L [facility] HospitalHemoglobin2018-07-08 04:54:00* Test Item Value Reference Range Interpretation Comments Hemoglobin (test code = 11515-4) 9.4 14.0-18.0 L [facility] HospitalHematocrit2018-07-08 04:54:00* Test Item Value Reference Range Interpretation Comments Hematocrit (test code = 4544-3) 29.6 38.2-49.6 L [facility] HospitalMean Corpuscular Umbxlz6308-91-39 04:54:00* Test Item Value Reference Range Interpretation Comments Mean Corpuscular Volume (test code = 787-2) 82.0 81-99 [facility] HospitalMean Corpuscular Gprtvtducp5293-55-16 04:54:00* Test Item Value Reference Range Interpretation Comments Mean Corpuscular Hemoglobin (test code = 785-6) 26.0 28-32 L [facility] HospitalMean Corpuscular Hemoglobin Concent 2017-08-30 04:54:00* Test Item Value Reference Range Interpretation Comments Mean Corpuscular Hemoglobin Concent (test code = 786-4) 31.8 31-35 [facility] HospitalRed Cell Distribution Ziejy2614-07-21 04:54:00* Test Item Value Reference Range Interpretation Comments Red Cell Distribution Width (test code = 00912-6) 16.5 11.7 -14.4 H [facility] HospitalPlatelet Ahjaj6259-71-42 04:54:00* Test Item Value Reference Range Interpretation Comments Platelet Count (test code = 777-3) 115 140-360 L [facility] HospitalNeutrophils (%) (Auto)2017-08-30 04:54:00 * Test Item Value Reference Range Interpretation Comments Neutrophils (%) (Auto) (test code = 00023-4) 73.6 38.7-80.0 [facility] HospitalLymphocytes (%) (Auto)2017-08-30 04:54:00 * Test Item Value Reference Range Interpretation Comments Lymphocytes (%) (Auto) (test code = 736-9) 13.9 18.0-39.1 L [facility] HospitalMonocytes (%) (Auto)2017-08-30 04:54:00* Test Item Value Reference Range Interpretation Comments Monocytes (%) (Auto) (test code = 5905-5) 9.8 4.4-11.3 [facility] HospitalEosinophils (%) (Auto)2017-08-30 04:54:00 * Test Item Value Reference Range Interpretation Comments Eosinophils (%) (Auto) (test code = 713-8) 2.1 0.0-6.0 [facility] HospitalBasophils (%) (Auto)2017-08-30 04:54:00* Test Item Value Reference Range Interpretation Comments Basophils (%) (Auto) (test code = 706-2) 0.2 0.0-1.0 [facility] HospitalIM GRANULOCYTES %2017-08-30 04:54:00* Test Item Value Reference Range Interpretation Comments IM GRANULOCYTES % (test code = IM GRANULOCYTES %) 0.4 0.0- 1.0 [facility] HospitalNeutrophils # (Auto)2017-08-30 04:54:00* Test Item Value Reference Range Interpretation Comments Neutrophils # (Auto) (test code = 751-8) 3.9 2.1-6.9 [facility] HospitalLymphocytes # (Auto)2017-08-30 04:54:00* Test Item Value Reference Range Interpretation Comments Lymphocytes # (Auto) (test code = 69150-1) 0.7 1.0-3.2 L [facility] HospitalMonocytes # (Auto)2017-08-30 04:54:00* Test Item Value Reference Range Interpretation Comments Monocytes # (Auto) (test code = 742-7) 0.5 0.2-0.8 [facility] HospitalEosinophils # (Auto)2017-08-30 04:54:00* Test Item Value Reference Range Interpretation Comments Eosinophils # (Auto) (test code = 711-2) 0.1 0.0-0.4 [facility] HospitalBasophils # (Auto)2017-08-30 04:54:00* Test Item Value Reference Range Interpretation Comments Basophils # (Auto) (test code = 704-7) 0.0 0.0-0.1 [facility] HospitalAbsolute Immature Granulocyte (auto 2017-08-30 04:54:00* Test Item Value Reference Range Interpretation Comments Absolute Immature Granulocyte (auto (shin t code = Absolute Immature Granulocyte (auto) 0.02 0-0.1 [facility] HospitalLactic Acid Toctd7648-38-23 02:07:00* Test Item Value Reference Range Interpretation Comments Lactic Acid Level (test code = Lactic Acid Level) 6.9 4.5- 19.8 [facility] HospitalLactic Acid Rmgvo7524-95-40 02:07:00* Test Item Value Reference Range Interpretation Comments Lactic Acid Level (test code = Lactic Acid Level) 6.9 4.5- 19.8 [facility] HospitalLactic Acid Oxkmc6834-92-23 02:07:00* Test Item Value Reference Range Interpretation Comments Lactic Acid Level (test code = Lactic Acid Level) 6.9 4.5- 19.8 [facility] HospitalUrine Turcc0992-75-17 01:57:00* Test Item Value Reference Range Interpretation Comments Urine Color (test code = 5778-6) RED YELLOW H [facility] HospitalUrine Gcnqstt1274-83-64 01:57:00* Test Item Value Reference Range Interpretation Comments Urine Clarity (test code = 53289-8) CLOUDY CLEAR H [facility] HospitalUrine Specific Qyztoyg6019-62-28 01:57:00 * Test Item Value Reference Range Interpretation Comments Urine Specific [place] (test code = 5811-5) 1.020 1.010-1.02 5 [facility] HospitalUrine yM7641-84-85 01:57:00* Test Item Value Reference Range Interpretation Comments Urine pH (test code = 60616-0) 6 5-7 [facility] HospitalUrine Leukocyte Kcapexms8315-62-89 01:57:00* Test Item Value Reference Range Interpretation Comments Urine Leukocyte Esterase (test code = 5799-2) 2+ NEGATIVE H [facility] Xipklgg9909-96-63 01:57:00* Test Item Value Reference Range Interpretation Comments Urine Nitrite (test code = 76051-4) NEGATIVE NEGATIVE [facility] HospitalUrine Nqvxggw0589-88-87 01:57:00* Test Item Value Reference Range Interpretation Comments Urine Protein (test code = 5804-0) 3+ NEGATIVE H [facility] HospitalUrine Glucose (UA)2017-08-29 01:57:00* Test Item Value Reference Range Interpretation Comments Urine Glucose (UA) (test code = 2349-9) NEGATIVE NEGATIVE [facility] HospitalUrine Zwdupna9228-09-73 01:57:00* Test Item Value Reference Range Interpretation Comments Urine Ketones (test code = 33422-4) NEGATIVE NEGATIVE [facility] HospitalUrine Cvssdshpbfyj5495-79-65 01:57:00* Test Item Value Reference Range Interpretation Comments Urine Urobilinogen (test code = 06983-6) 0.2 0.2-1 [facility] HospitalUrine Txsjtvuyg9125-92-95 01:57:00* Test Item Value Reference Range Interpretation Comments Urine Bilirubin (test code = 1978-6) 1+ NEGATIVE H Confirmatory test currently unavailable. False positive results may occur.[facility] HospitalUrine Cskab4307-84-21 01:57:00* Test Item Value Reference Range Interpretation Comments Urine Blood (test code = 23872-9) 3+ NEGATIVE H [facility] HospitalUrine YXO8351-17-61 01:57:00* Test Item Value Reference Range Interpretation Comments Urine WBC (test code = 5821-4) 50- 0-5 H [facility] HospitalUrine XOH4663-75-81 01:57:00* Test Item Value Reference Range Interpretation Comments Urine RBC (test code = 19009-5) 50- 0-5 H [facility] HospitalUrine Vnhyzdgy1024-33-62 01:57:00* Test Item Value Reference Range Interpretation Comments Urine Bacteria (test code = 35496-3) FEW NONE [facility] HospitalUrine Epithelial Szjbb4089-70-17 01:57:00 * Test Item Value Reference Range Interpretation Comments Urine Epithelial Cells (test code = 46870-6) RARE NONE [facility] HospitalCHEST SINGLE (PORTABLE)2017-08-29 01:52:00 [facility] [address] [place] [address] Patient Name: MANJIT LUO MR #: [id number] : 1980 Age/Sex: 37/M Req #: [id number] Adm Physician: Ordered by: MARIELLE MARSH MD Report #: [id number] Location: ER Room/Bed: Procedure: [id number] DX/CHEST SINGLE (ALONDRA BLE) Exam Date: 08/29/17 Exam Time: 0140 REPOR T STATUS: Signed EXAM: CHEST SINGLE (PORTABLE), AP 1 view INDICATION: Weakn ess, fever, UTI COMPARISON: AP view of the chest July 31, 2016 FINDINGS: LINES/TUBES: None LUNGS: No consolidations or edema. PLEURA: No effu sions or pneumothorax. HEART AND MEDIASTINUM: Normal size and contour. BONES AND SOFT TISSUES: No acute findings. IMPRESSION: No acute thoracic abnormality. Signed by: Dr. Cheikh Beltran M.D. on 08/29/2017 1:53 AM Dictated By: CHEIKH BELTRAN MD 2 Transcribed By: TIFFANY on 08/29/17152 COPY TO: MARIELLE MARSH MD Magnesium [id number] 00:45:00* Test Item Value Reference Range Interpretation Comments Magnesium Level (test code = 04880-9) 1.3 1.3-2.1 [facility] [place] [address] Patient Name: MANJIT LUO MR #: [id number] : 1980 Age/Sex: 36/M Req #: [id number] Adm Physician: Ordered by: MARGAUX HILLS MD Report #: [id number] Location: ER Room/Bed: Procedure: [id number] CT/CT ABDOMEN/PELVIS WO Exam Date: 01/25/17 Exam Time: 221 REPORT STATUS: Signed EXAM: CT Abdomen and Pelvis WITHOUT contrast INDICATION: Flank rehan n, stone protocol COMPARISON: None. TECHNIQUE: Abdomen and pelvis were scann ed utilizing a multidetector helical scanner from the lung base to the pubic s ymphysis without administration of IV contrast. Absence of intravenous contras t decreases sensitivity for detection of focal lesions and vascular pathology. Coronal and sagittal reformations were obtained. Stone protocol is performed. IV CONTRAST: None. ORAL CONTRAST: None RADIATION DOSE: Total DLP: 586.91 mGy*cm Estimated effective do se: (DLP x 0.015 x size factor) mSv COMPLICATIONS: None FINDI NGS: LINES and TUBES: None. LOWER THORAX: Unremarkable HEPATOBIL IARY: No focal hepatic lesions. No biliary ductal dilation. GALLBLADD ER: There are cholecystectomy clips. SPLEEN: No splenomegaly. PA NCREAS: No focal masses or ductal dilatation. Scattered regional calcification s noted along the pancreas. ADRENALS: No adrenal nodules KIDNEYS/U RETERS: Bilateral hydronephrosis and hydroureter continuously to the level of the urinary bladder wall. No cystic or solid mass lesions. No stones. GI TRACT: No abnormal distention, wall thickening, or evidence of bowel obstructi on. Appendix is normal. PELVIC ORGANS/BLADDER: The urinary bladder is diffusely thickened measuring 1.6 cm in diameter throughout with mild increase in wall thickening anteriorly. LYMPH NODES: No lymphadenopathy. VESS ELS: There is mild atherosclerotic disease in the aorta and major arterial bra nches. PERITONEUM / RETROPERITONEUM: No free air or fluid. BONES: Unre markable. SOFT TISSUES: Unremarkable. IMPRESSION: 1. C hanges related to chronic pancreatitis. 2. Bilateral hydronephrosis and hydro ureters with circumferentially thickened urinary bladder suggestive of chronic ascites versus less likely developing diffuse transitional cell carcinoma. No evidence of stones. 3. Cholecystectomy Signed by: Dr. Jose M Benavides M.D. on 01/25/2017 1:35 AM Dictated By: JOSE M GONSALVES MD 4 Transcribed By: TIFFANY on 01/25/17134 COPY TO: MARGAUX HILLS MD
[2019-08-04] MEDS ORDERED: ACETAMINOPHEN 325 MG TAB PO ONE (21:00)
--- NOTE | 2019-08-04 21:00 | NUR ---
ANGELIQUE OLSON states not to pull central line at this time.
--- NOTE | 2019-08-04 21:06 | Emergency Department Note ---
History of Present Illnes History of Present Illness Chief Complaint: General Medicine Complaints History of Present Illness This is a 39 year old male PRESENTS TO THE ER C/O FEVER/CHILLS, WEAKNESS AND PAIN TO RT FLANK ONSET X2 DAYS TABLEAU LEAD; PT HAD A RT NEPHRECTOMY BY DR. Haider MAY IN MAY AT THIS FACILTY; PT HAS A 2 PORT CENTRAL LINE IN LT UPPER CHEST; PT WAS SCHEDULED TO SEE DR. LOWE TO HAVE LINE REMOVED BUT WAS TOLD BY DR. LOWE TO COME TO THE ER FOR EVAL; PT ALSO REPORTS SOB SINCE SX IN MAY; . Historian: Patient Arrival Mode: Car Onset (how long ago): day(s) (2) Location: RIGHT FLANK Quality: FEVER, PAIN Radiation: Reports non-radiation Severity: mild Onset quality: sudden Duration (how long): day(s) (2) Timing of current episode: constant Progression: unchanged Chronicity: new Context: Reports recent surgery (RIGHT NEPHRECTOMY IN MAY 2019), Reports other (LEFT SUBCLAVIAN CENTRAL LINE PRESENT, SUPRAPUBIC SONG CATH PRESENT) Relieving factors: none Exacerbating factors: none Associated symptoms: Reports diaphoresis, Reports fever/chills, Reports shortness of breath (SINCE MAY) Treatments prior to arrival: other (ON IV ANTIBIOTICS BY DR LOWE FOR CHRONIC COMPLICATED UTI) Past Medical/Family History Physician Review I have reviewed the patient's past medical and family history. Any updates have been documented here. Past Medical History Recent Fever: Yes Clinical Suspicion of Infectio: Yes New/Unexplained Change in Ment: No Past Medical History: Hypertension, Diabetes, ESRD, Anemia Other Medical History: FOOT DROP osteomyelitis Past Surgical History: Cholecysctectomy, Knee Replacement Other Surgery: RT LOWER LEG SURGERY AT AGE 4 Stent to Prostate RIGHT LEG SURGERY S/P WORK INJURY SUPRA PUBIC CATH CIRCUMCISION PERITONEAL DIALYSIS ACCESS RT NEPHRECTOMY Social History Smoking Cessation: Never Smoker Alcohol Use: None Any Illegal Drug Use: No Family History Other family history HTN, DM Other Last Tetanus: UTD Review of Systems Review of Systems Constitutional: Reports as per HPI EENTM: Reports no symptoms Cardiovascular: Reports no symptoms Respiratory: Reports as per HPI Gastrointestinal: Reports no symptoms Genitourinary: Reports as per HPI Musculoskeletal: Reports no symptoms Integumentary: Reports no symptoms Neurological: Reports no symptoms Psychological: Reports no symptoms Endocrine: Reports no symptoms Hematological/Lymphatic: Reports no symptoms Physical Exam Related Data Allergies: Coded Allergies: Iodinated Contrast Media (Verified Allergy, Unknown, 05/03/18) Uncoded Allergies: PO CONTRAST (Allergy, Mild, 07/06/07) Triage Vital Signs Vital Signs Date Time Temp Pulse Resp B/P (MAP) Pulse Ox O2 Delivery O2 Flow Rate FiO2 08/04/19 20:39 103.3 120 20 99/80 98 Vital signs reviewed: Yes Physical Exam CONSTITUTIONAL Constitutional: Reports well-developed, Reports well-nourished HENT HENT: Reports normocephalic, Reports atraumatic, Reports oropharynx clear/moist, Reports nose normal HENT L/R: Reports left ext ear normal, Reports right ext ear normal EYES Eyes: Reports PERRL, Reports conjunctivae normal NECK Neck: Reports ROM normal PULMONARY Pulmonary: Reports effort normal, Reports breath sounds normal CARDIOVASCULAR Cardiovascular: Reports regular rhythm, Reports heart sounds normal, Reports capillary refill normal, Reports tachycardia (116) GASTROINTESTINAL Abdominal: Reports soft, Reports nontender, Reports bowel sounds normal, Reports right CVA tenderness (MILD) GENITOURINARY Genitourinary: Reports exam deferred SKIN Skin: Reports warm, Reports dry MUSCULOSKELETAL Musculoskeletal: Reports ROM normal NEUROLOGICAL Neurological: Reports alert, Reports oriented x 3, Reports no gross motor or sensory deficits PSYCHOLOGICAL Psychological: Reports mood/affect normal, Reports judgement normal Exam - additional comments SUPRA PUBIC SONG CATHETER PRESENT LEFT SUBCLAVIAN CENTRAL LINE PRESENT Results Laboratory Laboratory Laboratory Tests Test 08/04/19 22:13 08/04/19 21:23 Urine Color Yellow (YELLOW) Urine Clarity Sl cloudy (CLEAR) Urine pH 5.5 (5 - 7) Urine Specific Kake 1.020 (1.010-1.025) Urine Protein >=300 (NEGATIVE) Urine Glucose (UA) 1+ (NEGATIVE) Urine Ketones Negative (NEGATIVE) Urine Blood Moderate (NEGATIVE) Urine Nitrite Negative (NEGATIVE) Urine Bilirubin Negative (NEGATIVE) Urine Urobilinogen 0.2 mg/dL (0.2 - 1) Urine Leukocyte Esterase Small (NEGATIVE) Urine RBC >50 /HPF (0-5) Urine WBC >50 /HPF (0-5) Urine Epithelial Cells Many /LPF (NONE) Urine Bacteria Many /HPF (NONE) White Blood Count 7.39 x10e3/uL (4.8-10.8) Red Blood Count 4.29 x10e6/uL (4.3-5.7) Hemoglobin 10.6 g/dL (14.0-18.0) Hematocrit 34.2 % (38.2-49.6) Mean Corpuscular Volume 79.7 fL (81-99) Mean Corpuscular Hemoglobin 24.7 pg (28-32) Mean Corpuscular Hemoglobin Concent 31.0 g/dL (31-35) Red Cell Distribution Width 15.5 % (11.7-14.4) Platelet Count 116 x10e3/uL (140-360) Neutrophils (%) (Auto) 78.5 % (38.7-80.0) Lymphocytes (%) (Auto) 14.1 % (18.0-39.1) Monocytes (%) (Auto) 5.7 % (4.4-11.3) Eosinophils (%) (Auto) 0.3 % (0.0-6.0) Basophils (%) (Auto) 0.7 % (0.0-1.0) Neutrophils # (Auto) 5.8 (2.1-6.9) Lymphocytes # (Auto) 1.0 (1.0-3.2) Monocytes # (Auto) 0.4 (0.2-0.8) Eosinophils # (Auto) 0.0 (0.0-0.4) Basophils # (Auto) 0.1 (0.0-0.1) Absolute Immature Granulocyte (auto 0.05 x10e3/uL (0-0.1) Prothrombin Time 15.7 seconds (11.9-14.5) Prothromb Time International Ratio 1.17 Activated Partial Thromboplast Time 27.8 seconds (23.8-35.5) Sodium Level 136 mmol/L (136-145) Potassium Level 4.2 mmol/L (3.5-5.1) Chloride Level 108 mmol/L (98-107) Carbon Dioxide Level 17 mmol/L (22-29) Anion Gap 15.2 mmol/L (8-16) Blood Urea Nitrogen 23 mg/dL (7-26) Creatinine 5.20 mg/dL (0.72-1.25) Estimat Glomerular Filtration Rate 12 ML/MIN (60-) BUN/Creatinine Ratio 4 (6-25) Glucose Level 189 mg/dL (74-118) Lactic Acid Level 1.8 mmol/L (0.5-2.0) Calcium Level 7.0 mg/dL (8.4-10.2) Total Bilirubin 0.4 mg/dL (0.2-1.2) Aspartate Amino Transf (AST/SGOT) 13 IU/L (5-34) Alanine Aminotransferase (ALT/SGPT) 6 IU/L (0-55) Alkaline Phosphatase 184 IU/L (40-150) Creatine Kinase 102 IU/L (30-200) Creatine Kinase MB 0.80 ng/mL (0-5.0) Troponin I 0.032 ng/mL (0-0.300) Total Protein 7.3 g/dL (6.5-8.1) Albumin 2.3 g/dL (3.5-5.0) Globulin 5.0 g/dL (2.3-3.5) Albumin/Globulin Ratio 0.5 (0.8-2.0) Lab results reviewed: Yes Imaging Imaging results reviewed: Yes Impressions CT ABD/PELVIS IMPRESSION: 1. Limited study without intravenous contrast. 2. Status post right nephrectomy. Soft tissue thickening versus phlegmonous material or a small hematoma in the right nephrectomy bed as described above. 3. No left nephrolithiasis. Moderately dilated left renal pelvis and mild left hydroureter without evidence of obstructive urolithiasis. 4. Again seen bladder wall thickening, probably due to chronic cystitis. 5. Changes of chronic pancreatitis. 6. Again seen right inguinal and iliac chain lymphadenopathy. 7. Splenomegaly. EXAMINATION: CHEST SINGLE (PORTABLE) INDICATION: ^FEVER ^[id number] ^2210 ^Y COMPARISON: 06/16/2019 FINDINGS: AP view TUBES and LINES: None. LUNGS: Lungs are well inflated. Mild central peribronchial cuffing. No definite focal consolidation. PLEURA: No pleural effusion or pneumothorax. HEART AND MEDIASTINUM: The cardiomediastinal silhouette is unremarkable. BONES AND SOFT TISSUES: No acute osseous lesion. Soft tissues are unremarkable. UPPER ABDOMEN: No free air under the diaphragm. IMPRESSION: Mild central peribronchial cuffing. No definite focal consolidations. Signed by: Dr. Tanvir Wesley MD on 08/04/2019 11:05 PM Procedures 12 Lead ECG Interpretation ECG Interpretation : ECG: ECG 1 Addiction Nurse: Interpreted by ED physician Date: Aug 04, 2019 Time: 21:02 Rhythm: sinus tachycardia Rate: tachycardia BPM: 113 QRS axis: normal Conduction: incomplete RBBB ST segments normal: Yes T waves normal: Yes Other findings: no other findings Clinical Impression: abnormal ECG Assessment & Plan Medical Decision Making MDM PT WITH FEVER AND CHILLS, RIGHT FLANK PAIN, RIGHT NEPHRECTOMY IN MAY, PT HAS CENTRAL LINE AND SUPRAPUBIC SONG PRESENT ON ARRIVAL SIRS TEMP 103.3, HEART RATE GREATER THAN 90 CBC, CMP, EKG, CXR, CT ABD/PELVIS, UA, BLOOD CULTURE, LACTIC ACID, URINE CULTURE, EKG, CARDIAC ENZYMES ORDERED TO EVAL FOR SEPSIS, UTI, PNEUMONIA, INTRA ABDOMINAL ABSCESS, ELECTROLYTE ABNORMALITY, I SPOKE WITH DR LOWE, START PT ON MEROPENEM, VANCOMYCIN , AND DIFLUCAN IV, HE STATES DO NOT REMOVE CENTRAL LINE AT THIS TIME. MEROPENEM 500 MG IV ORDERED VANCOMYCIN 1 GRAM IV ORDERED DIFLUCAN 200 MG IV ORDERED TYLENOL 975 MG PO ORDERED I SPOKE WITH DR LOWE, DR LLOYD, DR SORIANO COVERING FOR MERZAI, AND DR MAY, ADMIT INPATIENT Assessment & Plan Final Impression: (1) ESRD on peritoneal dialysis (2) Complicated UTI (urinary tract infection) (3) Indwelling Song catheter present (4) Fever (5) UTI (urinary tract infection) Depart Disposition: ADMITTED Last Vital Signs Date Time Temp Pulse Resp B/P (MAP) Pulse Ox O2 Delivery O2 Flow Rate FiO2 08/04/19 20:39 103.3 120 20 99/80 98 Medications in the ED Acetaminophen 975 mg ONCE ONCE PO ; Start 08/04/19 at 21:00; Stop 08/04/19 at 21:01; Status UNV MARIELLE MARSH MD Aug 04, 2019 21:06
[2019-08-04] MEDS: MEROPENEM 500MG/ NS 50ML 50 ML IV SCH (21:30)
--- NOTE | 2019-08-04 21:31 | NUR ---
Unable to obtain second set of blood cultures prior to antibiotic administration
[2019-08-04 21:58] LABS: BASOPHILS # (AUTO) 0.1 (0.0-0.1); BASOPHILS % 0.7 % (0.0-1.0); EOSINOPHILS % 0.3 % (0.0-6.0); HEMATOCRIT 34.2 % (38.2-49.6); HEMOGLOBIN 10.6 g/dL (14.0-18.0); LYMPHOCYTES % 14.1 % (18.0-39.1); MEAN CORPUSCULAR HEMOGLOBIN 24.7 pg (28-32); MEAN CORPUSCULAR VOLUME 79.7 fL (81-99); MONOCYTES # (AUTO) 0.4 (0.2-0.8); MONOCYTES % 5.7 % (4.4-11.3); NEUTROPHILS # (AUTO) 5.8 (2.1-6.9); NEUTROPHILS % 78.5 % (38.7-80.0); PLATELET COUNT 116 x10e3/uL (140-360); RED BLOOD COUNT 4.29 x10e6/uL (4.3-5.7); RED CELL DISTRIBUTION WIDTH 15.5 % (11.7-14.4)
[2019-08-04] MEDS ORDERED: VANCOMYCIN 1GM/NS 250 ML 250 ML IV ONE (22:00)
[2019-08-04 22:06] LABS: INR 1.17; PARTIAL THROMBOPLASTIN TIME 27.8 seconds (23.8-35.5); PROTHROMBIN TIME 15.7 seconds (11.9-14.5)
[2019-08-04 22:17] LABS: ALBUMIN 2.3 g/dL (3.5-5.0); ALBUMIN/GLOBULIN RATIO 0.5 (0.8-2.0); ANION GAP 15.2 mmol/L (8-16); CREATININE, SERUM 5.2 mg/dL (0.72-1.25); POTASSIUM 4.2 mmol/L (3.5-5.1)
[2019-08-04 22:23] LABS: CREATINE KINASE MB 0.8 ng/mL (0-5.0)
[2019-08-04 22:28] LABS: BILIRUBIN,URINE NEGATIVE (NEGATIVE); CLARITY,URINE SL CLOUDY (CLEAR); COLOR,URINE YELLOW (YELLOW); KETONES,URINE NEGATIVE (NEGATIVE); LEUKOCYTE ESTERASE ,URINE SMALL (NEGATIVE); NITRITE,URINE NEGATIVE (NEGATIVE); PROTEIN,URINE DIPSTICK >=300 (NEGATIVE); URINE UROBILINOGEN 0.2 mg/dL (0.2 - 1)
[2019-08-04] MEDS ORDERED: HYDROCODONE/APAP 10MG-325MG TAB PO ONE (22:30)
--- NOTE | 2019-08-04 22:35 | Diagnostic Imaging Report ---
EXAM: CT Abdomen and Pelvis WITHOUT contrast INDICATION: ^FEVER, ABD PAIN, PERITONEAL DIAYLYSIS ^[id number] ^2204 ^Y COMPARISON: CT dated 05/30/2019 TECHNIQUE: Abdomen and pelvis were scanned utilizing a multidetector helical scanner from the lung base to the pubic symphysis without administration of IV contrast. Absence of intravenous contrast decreases sensitivity for detection of focal lesions and vascular pathology. Coronal and sagittal reformations were obtained. Routine protocol was performed. IV CONTRAST: None ORAL CONTRAST: None COMPLICATIONS: None RADIATION DOSE: Total DLP: 449.66 mGy*cm Estimated effective dose: (DLP x 0.015 x size factor) mSv CTDIvol has been reviewed. It is below the limits set by the Radiation Protocol Committee (RPC). FINDINGS: LINES and TUBES: Suprapubic Barcenas catheter. Dialysis catheter with tip coiled in the pelvis. LOWER THORAX: Unremarkable HEPATOBILIARY: Unenhanced liver is unremarkable. No biliary ductal dilation. GALLBLADDER: Surgically absent. SPLEEN: Splenomegaly. 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 Pancreatic ductal dilatation up to 7 mm. ADRENALS: No adrenal nodules KIDNEYS/URETERS: Right nephrectomy. Soft tissue thickening or complex collection in the surgical bed, measuring 2.4 x 1 cm (series 301, image 65). Moderately dilated left renal pelvis as well as mild hydroureter. Limited for evaluation of renal parenchyma without intravenous contrast. No left renal calculus. GI TRACT: No abnormal distention or evidence of bowel obstruction. Unchanged lower rectal wall thickening. Appendix is normal. PELVIC ORGANS/BLADDER: Again seen suprapubic Barcenas catheter in place with diffuse bladder wall thickening and perivesical fat stranding. LYMPH NODES: Right iliac chain and inguinal lymphadenopathy, again seen. For example 1.8 cm right external iliac lymph node, previously 2.1 cm. VESSELS: Unremarkable. PERITONEUM / RETROPERITONEUM: No free air or fluid. BONES: Mottled iliac bones with increased sclerosis, could be due to renal osteodystrophy. Bilateral L5 pars defects without significant spondylolisthesis. SOFT TISSUES: Right posterior flank subcutaneous fat stranding, likely postsurgical. IMPRESSION: 1. Limited study without intravenous contrast. 2. Status post right nephrectomy. Soft tissue thickening versus phlegmonous material or a small hematoma in the right nephrectomy bed as described above. 3. No left nephrolithiasis. Moderately dilated left renal pelvis and mild left hydroureter without evidence of obstructive urolithiasis. 4. Again seen bladder wall thickening, probably due to chronic cystitis. 5. Changes of chronic pancreatitis. 6. Again seen right inguinal and iliac chain lymphadenopathy. 7. Splenomegaly. Signed by: Dr. Tanvir Wesley MD on 08/04/2019 10:32 PM
--- NOTE | 2019-08-04 23:08 | Diagnostic Imaging Report ---
ADDENDUM #1 Left subclavian central line in place with tip projecting over cavoatrial junction. Signed by: Dr. Tanvir Wesley MD on 08/04/2019 11:35 PM ORIGINAL REPORT EXAMINATION: CHEST SINGLE (PORTABLE) INDICATION: ^FEVER ^[id number] ^2210 ^Y COMPARISON: 06/16/2019 FINDINGS: AP view TUBES and LINES: None. LUNGS: Lungs are well inflated. Mild central peribronchial cuffing. No definite focal consolidation. PLEURA: No pleural effusion or pneumothorax. HEART AND MEDIASTINUM: The cardiomediastinal silhouette is unremarkable. BONES AND SOFT TISSUES: No acute osseous lesion. Soft tissues are unremarkable. UPPER ABDOMEN: No free air under the diaphragm. IMPRESSION: Mild central peribronchial cuffing. No definite focal consolidations. Signed by: Dr. Tanvir Wesley MD on 08/04/2019 11:05 PM
[2019-08-04] MEDS ORDERED: IBUPROFEN 600 MG TAB PO STA (23:18)
[2019-08-04 23:27] LABS: BACTERIA,URINE MANY /HPF; EPITHELIAL CELLS,URINE MANY /LPF; RBC,URINE >50 /HPF (0-5); WBC,URINE (MAN) >50 /HPF (0-5)
[2019-08-04] MEDS ORDERED: SODIUM CHLORIDE FLUSH 10 ML SYR INJ PRN (23:30)
[2019-08-04] MEDS ORDERED: DEXTROSE 50% SYRINGE 50 ML IV PRN (23:30)
--- NOTE | 2019-08-04 23:42 | NUR ---
Second set of blood cultures pulled at this time time from central line.
--- OUTSIDE RECORDS SUMMARY | 2019-08-04 23:43 | XMS REPORT | Continuity of Care Document ---
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 07/23/2017 [facility] Inj Arthrogram Shoulder Unilat DX EXAM: [...] the right shoulder for MR arthrogram. 07/23/2017 [facility] Consultation Notes No Data Provided for [...] Provider ADM Date DC Date Status Source [facility] [id number] Kenzie Mancilla 06/02/2017 06/02/2017 [facility] Outpatient Imaging [facility] Outpt Diag Services [id number] 01 Joaquín Ha 07/23/2017 07/24/2017 [facility] MNA Neurology [facility] Phone Message [phone] 11/30/2017 12/02/2017 [facility] Outpatient [id number] [facility] 12/01/[address] [facility] [place] MNA Neurology [facility] Outpatient [id number] [facility] 12/01/2017 12/02/2017 [facility] Neuro Procedures Procedure Code Date Perfomer Comments Source Hernia repair<sup>1</sup> 5046 5008 1981 & 198 9 [facility] Neuro LASIK [id number] [facility] Ne uro Provision of collar<sup>2</sup> [id number] collar bon e fracture [facility] Assessment and Plan No Data Provided [...] Cessation Counseling Yes entered on: 12/01/17 12/01/2017 [facility] No data available for this section 07/24/2017 [facility] No data available for this section 06/02/2017 [facility] Family History No Data Provided for This Section Advance Directives No Data Provided for This Section Functional Status No Data Provided for This Section
--- OUTSIDE RECORDS SUMMARY | 2019-08-04 23:43 | XMS REPORT | Clinical Summary ---
Author Author Alejandro Caodaism Organization Marydel Caodaism Address Unknown Phone Unavailable Care Team Providers Care Internet Network Specialist Name Role Phone Donald Potts MD [...] Transplant [facility] Follow-up (TXP - [facility] - RENAL EVAL APPRVL) 03/29/2019 Documentation Transplant [...] Comments Vital Sign 182/98 04/06/2019 7:50 AM CRUISE COORDINATOR pt states he has nt taken his meds today. Blood Pressure 90 04/06/2019 7:50 AM CRUISE COORDINATOR Pulse 35.8 C (96.4 F) 04/06/2019 7:50 AM CRUISE COORDINATOR Temperature 20 04/06/2019 7:50 AM CRUISE COORDINATOR Respiratory Rate 99% 04/06/2019 7:50 AM CRUISE COORDINATOR Oxygen Saturation - - Inhaled Oxygen Concentration [...] ot Implanted Type Area Manufactur er 11/22/2025 [id number] / / [id number] Screw Bone Canc Dome 6.5x25mm Ltxf Hip Joint Right: Knee DEPUY [place] - [id number] Implants ORTHO Implanted: Qty: 1 on 03/27/2016 by Silke Chowdary MD at [facility] 01/22/2026 [id number] / / [id number] Screw Bone Canc Dome 6.5x25mm Ltxf Hip Joint Right: Knee DEPUY [place] - [id number] Implants ORTHO Implanted: Qty: 1 on 03/27/2016 by Silke Chowdary MD at [facility] 10/23/2026 [id number] / / [id number] [place] Stem [id number] Fluted - IPM Right: Knee DEPUY [id number] IMPLANT ORTHOPAEDI Implanted: Qty: 1 on 04/16/2017 by [employer] Silke Chowdary MD at [facility] 12/23/2026 [id number] / / [id number] [place] Fem Slv Ful Por 40mm - IPM Right: Knee DEPUY [id number] IMPLANT ORTHOPAEDI Implanted: Qty: 1 on 04/16/2017 by [employer] Silke Chowdary MD at [facility] 11/22/2025 [id number] / / [id number] Srom [facility] Dist Aug Xs/S/ 10mm - IPM Right: Knee DEPUY [id number] IMPLANT ORTHOPAEDI Implanted: Qty: 1 on 04/16/2017 by [employer] Silke Chowdary MD at [facility] 11/22/2024 [id number] / / [id number] [facility]s/S/ 10mm - IPM Right: Knee DEPUY [id number] IMPLANT ORTHOPAEDI Implanted: Qty: 1 on 04/16/2017 by [employer] Silke Chowdary MD at [facility] 10/23/2021 [id number] / / [id number] Srom Nrhfem W/Pin Med Rt 71x66 - IPM Right: Knee DEPUY [id number] IMPLANT ORTHOPAEDI Implanted: Qty: 1 on 04/16/2017 by [employer] Silke Chowdary MD at [facility] 10/24/2019 [id number] / / [id number] Lps Univ Tib Hin Ins Med 31mm - IPM Right: Knee DEPUY [id number] IMPLANT ORTHOPAEDI Implanted: Qty: 1 on 04/16/2017 by [employer] Silke Chowdary MD at [facility] 01/22/2026 [id number] / / [id number] Augment Fml P.F.C Sigma Distl Rt Sz Knee Joint Right: Kne e DEPUY 5 4mm - [id number] Implants ORTHO Implanted: Qty: 1 on 03/27/2016 by Silke Chowdary MD at [facility] 01/22/2026 [id number] / / [id number] Stem Tib Cementd [id number] P.F.C Knee Joint Right: Knee DEPUY Sigma - [id number] Implants ORTHO Implanted: Qty: 1 on 03/27/2016 by Silke Chowdary MD at [facility] 10/22/2020 [id number] / / [id number] Augment Fml P.F.C Sigma Distl Rt Sz Knee Joint Right: Kne e DEPUY 5 8mm - [id number] Implants ORTHO Implanted: Qty: 1 on 03/27/2016 by Silke Chowdary MD at [facility] 09/22/2025 [id number] / / [id number] Stem Tib Cementd [id number] Knee Joint Right: Knee DEPUY P.F.C.Sigma - [id number] Implants ORTHO Implanted: Qty: 1 on 03/27/2016 by Silke Chowdary MD at [facility] 12/23/2020 [id number] / / [id number] Patella Prosths Oval / Dome 3-Post Knee Joint Right: Knee DEPUY 38mm Std Uhmwpe - [id number] Implants ORTHO Implanted: Qty: 1 on 03/27/2016 by Silke Chowdary MD at [facility] 05/23/2020 [id number] / / [id number] Insert Tib Stblzd Rp Sz 5 25mm Knee Joint Right: Knee DEPUY P.F.C Sigma - [id number] Implants ORTHO Implanted: Qty: 1 on 03/27/2016 by Silke Chowdary MD at [facility] 02/22/2026 [id number] / / [id number] Tray Rev Mbt 5x53.1x80.6x61.8mm - Knee Joint Right: Knee DEPUY [id number] Implants ORTHO Implanted: Qty: 1 on 03/27/2016 by iSlke Chowdary MD at [facility] 09/22/2025 [id number] / / [id number] Component Fml Rt N-Por Tc3 Sz 5 Knee Joint Right: Knee DEPUY [id number] P.F.C Sigma - [id number] Implants ORTHO Implanted: Qty: 1 on 03/27/2016 by Silke Chowdary MD at [facility] 01/22/2026 [id number] / / [id number] Adapter Fml P.F.C Sigma 5deg - Knee Joint Right: Knee DEPUY [id number] Implants ORTHO-KNEE Implanted: Qty: 1 on 03/27/2016 by Silke Gutierres MD at [facility] 11/22/2025 [id number] / / [id number] Adapter Fml P.F.C Sigma Ofst [place] Knee Joint Right: Knee DEPUY +2/-2mm - [id number] Implants ORTHO-KNEE Implanted: Qty: 1 on 03/27/2016 by Silke Gutierres MD at [facility] 01/22/2017 [id number] / / [id number] Cement Bone Hiviscocty 40gr Surgical Right: Knee DE PUY Smartset - [id number] Bone ORTHO Implanted: Qty: 2 on 03/27/2016 by Silke Monge MD at [facility] 12/23/2016 [id number] / / [id number] Cement Bone Hiviscocty 40gr Surgical Right: Knee DE PUY Smartset - [id number] Bone ORTHO Implanted: Qty: 1 on 03/27/2016 by Silke Monge MD at [facility] 10/23/2018 [id number] / / [id number] Cement Bone Hiviscocty 40gr Surgical Right: Knee DE PUY Smartset - [id number] Bone ORTHO Implanted: 04/16/2017 at [facility] (Quantity not on file) 12/24/2020 [id number] / / [id number] Cement Bone Prep Univl Insrtr Sculp Surgical Right: Kne e SANDOR Fml [place] Suct Sm - [id number] Implants; IN STRUMENT Implanted: Qty: 1 on 03/27/2016 by [employer]; S Silke Chowdary MD at [facility] Extenders; Surgical Wires [id number] / / Immobilizer Knee Tripnl Dlx W/ Patl Surgical N/A: N/A DEROYAL Strp Univl Canvas 24in - [id number] Implants; IN DUSTRIES Implanted: 04/16/2017 at [facility] Expanders; HOSPITAL (Quantity not on file) Extenders; [...] (HCC) URINE CULTURE Routine 04/06/2019 8:57 AM CRUISE COORDINATOR TREPONEMA PALLIDUM AB Routine 04/06/2019 8:00 AM CRUISE COORDINATOR RPR Routine 04/06/2019 8:00 AM CRUISE COORDINATOR HEPATITIS A ANTIBODY IGM Routine 04/06/2019 8:00 AM CRUISE COORDINATOR ESTIMATED GFR Routine 04/06/2019 8:00 AM CRUISE COORDINATOR DRUG YUEN 9, SER/LILIAN, SCRN Routine 04/06/2019 End stage renal disease W/RFLX TO CONF 8:00 AM CRUISE COORDINATOR (HCC) Type 1 diabetes mellitus with other specified complication (HCC) ABO/RH Routine 04/06/2019 End stage renal disease 8:00 AM CRUISE COORDINATOR (HCC) Type 1 diabetes mellitus with other specified complication (HCC) NICOTINE AND COTININE, Routine 04/06/2019 End sta ge renal disease SERUM 8:00 AM CRUISE COORDINATOR (HCC) Type 1 diabetes mellitus with other specified complication (HCC) IA-2 ANTIBODY Routine 04/06/2019 End stage renal disease 8:00 AM CRUISE COORDINATOR (HCC) Type 1 diabetes mellitus with other specified complication (HCC) ISLET CELL AB, IGG Routine 04/06/2019 End stage r enal disease 8:00 AM CRUISE COORDINATOR (HCC) Type 1 diabetes mellitus with other specified complication (HCC) GLUTAMIC ACID Routine 04/06/2019 End stage renal disease DECARBOXYLASE AB 8:00 AM CRUISE COORDINATOR (HCC) Type 1 diabetes mellitus with other specified complication (HCC) HEMOGLOBIN A1C Routine 04/06/2019 End stage renal disease 8:00 AM CRUISE COORDINATOR (HCC) Type 1 diabetes mellitus with other specified complication (HCC) C-PEPTIDE Routine 04/06/2019 End stage renal disease 8:00 AM CRUISE COORDINATOR (HCC) Type 1 diabetes mellitus with other specified complication (HCC) PARTIAL THROMBOPLASTIN Routine 04/06/2019 End sta ge renal disease TIME (PTT) 8:00 AM CRUISE COORDINATOR (HCC) Type 1 diabetes mellitus with other specified complication (HCC) PROTHROMBIN TIME WITH INR Routine 04/06/2019 End stage renal disease 8:00 AM CRUISE COORDINATOR (HCC) Type 1 diabetes mellitus with other specified complication (HCC) HC COMPLETE BLD COUNT Routine 04/06/2019 End stag e renal disease W/AUTO DIFF 8:00 AM CRUISE COORDINATOR (HCC) Type 1 diabetes mellitus with other specified complication (HCC) SYPHILIS TOTAL ANTIBODY Routine 04/06/[address] age renal disease 8:00 AM CRUISE COORDINATOR (HCC) Type 1 diabetes mellitus with other specified complication (HCC) HEPATITIS C ANTIBODY Routine 04/06/2019 End stage renal disease 8:00 AM CRUISE COORDINATOR (HCC) Type 1 diabetes mellitus with other specified complication (HCC) HEPATITIS B SURFACE Routine 04/06/2019 End stage renal disease ANTIGEN 8:00 AM CRUISE COORDINATOR (HCC) Type 1 diabetes mellitus with other specified complication (HCC) HEPATITIS B SURFACE AB, Routine 04/06/[address] age renal disease QUANTITATIVE 8:00 AM CRUISE COORDINATOR (HCC) Type 1 diabetes mellitus with other specified complication (HCC) HEPATITIS B CORE ANTIBODY Routine 04/06/2019 End stage renal disease TOTAL 8:00 AM CRUISE COORDINATOR (HCC) Type 1 diabetes mellitus with other specified complication (HCC) HEPATITIS A ANTIBODY Routine 04/06/2019 End stage renal disease TOTAL 8:00 AM CRUISE COORDINATOR (HCC) Type 1 diabetes mellitus with other specified complication (HCC) HIV AG/AB COMBINATION Routine 04/06/2019 End stag e renal disease 8:00 AM CRUISE COORDINATOR (HCC) Type 1 diabetes mellitus with other specified complication (HCC) URINALYSIS SCREEN AND Routine 04/06/2019 End stag e renal disease MICROSCOPY, WITH REFLEX 8:00 AM CRUISE COORDINATOR (HCC) TO CULTURE Type 1 diabetes mellitus with other specified complication (HCC) COMPREHENSIVE METABOLIC Routine 04/06/[address] age renal disease PANEL 8:00 AM CRUISE COORDINATOR (HCC) Type 1 diabetes mellitus with other specified complication (HCC) after 2018 Results * Cardiolipin antibodies (08/01/2019 12:17 PM CDT) Only the most recent of 2 results within the time period is included. Cardiolipin IgG 5 0 - 14 GPL [place] Comment: [facility] Negative <15 GPL HOSPITAL Indeterminate 15-20 GPL Positive >20 GPL Cardiolipin IgM 7 0 - 12 MPL [place] Comment: CATHOLIC Negative <13 MPL HOSPITAL Indeterminate 13-20 MPL Positive >20 MPL Specimen Blood Performing Organization Address [facility] Ph one Number [facility] DEPARTMENT OF [address] [place] [address] PATHOLOGY AND GENOMIC MEDICINE [place] C[facility]OLIC [address] [place] [address] HOSPITAL * XR Chest 2 Vw (05/03/2019 [...] demonstr ate no definite abnormality. Negative examination. [facility]-[id number] Procedure Note Interface, Radiology Results Incoming - [...] structures demonstrate no definite abnormality. Negative examination. [facility]-[id number] Performing Organization Address [facility] Ph one Number [facility] [address] [place] [address] * CT Abdomen Pelvis Wo Contrast (05/03/2019 [...] lymph nodes, nonspecific though may be reactive. [id number] Procedure Note Interface, Radiology Results Incoming - [...] lymph nodes, nonspecific though may be reactive. [id number] Performing Organization Address City/State/Zipcode Ph one Number [facility] [address] [place] [address] * Low resolution full typing by SSO (05/03/2019 8:30 AM CDT) Interpretation Note: [facility] by PCR-SSO DNA based [facility] procedures. HOSPITAL Note: The serological phenotype is an interpretation based on molecular typing data. [facility] Low resolution See link below for PDF Lab [place] full typing by Report [facility] Specimen Blood Performing Organization Address [facility] one Number [facility] DEPARTMENT OF [address] [place] [address] PATHOLOGY AND GENOMIC MEDICINE [address] * C1Q class 1 & 2 antibody (05/03/2019 8:30 AM CDT) [facility] C1Q class 1 & 2 See link below for PDF Lab [place] antibody Report [facility] Specimen Blood Performing Organization Address [facility] one Number [facility] DEPARTMENT OF [address] [place] [address] PATHOLOGY AND GEN[address]IC [facility] [place] * Estimated GFR (05/03/2019 8:30 AM CDT) Only the most recent of 2 results within the time period is included. [facility] Estimated GFR 16 (A) mL/min/1.73 m2 [place] Comment: [facility] Interpretation G1 >=90 Normal or high G2 [...] 2014. Specimen Plasma specimen Performing Organization Address [facility] one Number [facility] DEPARTMENT OF [address] [place] [address] PATHOLOGY AND GENOMIC MEDICINE [address] * HSV 1 & 2 glycoprotein G Ab, IgG (05/03/2019 8:30 AM CDT) [facility] HSV 1 NegativeComment: Negative: No Negative [place] glycoprotein G IgG antibodies to HSV1 [facility] Ab, IgG detected. HOSPITAL HSV 2 NegativeComment: Negative: No Negative [place] glycoprotein G IgG antibodies to HSV2 [facility] Ab, IgG detected. HOSPITAL Specimen Serum Performing Organization Address [facility] Ph one Number [facility] DEPARTMENT OF [address] [place] [address] PATHOLOGY AND GENOMIC MEDICINE [address] * Helder-Petit virus antibody test (05/03/2019 8:30 AM CDT) Pathologist [facility] EBV Ab to viral Positive (A) Negative [place] capsid Ag, IgG [facility] EBV Ab to viral Negative Negative [place] capsid Ag, IgM [facility] EBV Ab to Positive (A) Negative [place] nuclear Ag, IgG [facility] EBV Ab to early Negative Negative [place] (D) Ag, IgG [facility] Helder-Petit SEE COMMENTComment: Infection [place] virus antibody Status: Results may suggest [facility] interpretation past EBV infection. HOSPITAL Specimen Serum Performing Organization Address City/[facility] Ph one Number [facility] DEPARTMENT OF [address] [place] [address] PATHOLOGY AND GENOMIC MEDICINE [address] * TB T-SPOT (05/03/2019 8:30 AM CDT) Pathologist [facility] TB T-SPOT SEE NOTE TMHRI - GRAVISS [...] FOR USE WITH T=SPOT.TB TEST. Performed by: [facility] Molecular Tuberculosis Laboratory [facility] ([id number]) [place], [place] [address] Specimen Blood Performing Organization Address City/State/[place] Ph one Number [facility] DEPARTMENT OF [address] [place] [address] PATHOLOGY AND GENOMIC MEDICINE [facility] RE[facility] * Single antigen beads (05/03/2019 8:30 AM CDT) Pathologist [facility] interpretation information: [facility] DP1=DPB1*01:01/DPA1*02:01 HOSPITAL DP5=DPB1*05:01/DPA1*02:02 DQ9=DQB1*03:03/DQA1*02:01 QZ63=RTE8*01:03 QT50=PXF3*01:01 DR51 is a self-antigen [facility] serum ID [id number] [facility] SAB serum 05/03/2019 08:30 AM [place] collection D&T [facility] SAB class I Negative [place] antibody [facility] SAB cPRA class 0 [facility] SAB class II DP1,DR10,DP5,DR53,DR51,DQ9 [place] antibody [facility] SAB cPRA class 74 [facility] Single antigen See link below for PDF Lab [facility] Specimen Blood Performing Organization Address City/State/Zipcode Ph one Number [facility] DEPARTMENT OF [address] [place] [address] PATHOLOGY AND GENOMIC MEDICINE [address] * Miscellaneous referral test (05/03/2019 8:30 AM CDT) Only the most recent of 2 results within the time period is included. Misc test name PTNT LEMA SHOWN ABOVE Misc test SEE NOTE SHOWN ABOVE result Comment: Report Status: FINAL Prothrombin [id number] Mutation, B PTNT Interpretation This individual DOES NOT have the Prothrombin [id number] mutation. Although the Prothrombin [id number] mutation is absent, the individual may have other genetic and environmental risk factors for thrombosis. Consider genetic consultation and counseling of potentially affected family members regarding laboratory testing. ADDITIONAL INFORMATION This test is a direct mutation analysis using PCR amplification, signal generation and release by cleavage of sequence specific alleles ([employer], [employer], [place], [place]). .............................. .............................. Prothrombin [id number] Mutation, B Negative Reference Value: Negative .............................. .............................. PTNT Reviewed By DARRYL Oneil - - - - - - - - - - - - - - - - - - - - - - - - - - - - - - Laboratory Notes: This test has been modified from the bus escort's instructions. Its performance characteristics were determined by [facility] in a manner consistent with CLIA requirements. This test has not been cleared or approved by the U.S. Food and Drug Administration. + + : PERFORMING SITE LEGEND : + + : : [facility] : : : [address] [place] [address] : + + Specimen Narrative Performed At Prothrombin [id number] Mutation [facility] DEPARTMENT OF [facility] Test ID: PTNT PATHOLOGY AND Source: Whole Blood GENOMIC MEDICINE Performing Organization Address City/[facility]/Zipcode Ph one Number [facility] DEPARTMENT OF [address] [place] [address] PATHOLOGY AND GENOMIC MEDICINE SHOWN ABOVE * HSV type 1/2 combined Ab, IgM (05/03/2019 8:30 AM CDT) [facility] HSV 1/2 0.71 <=0.89 IV [facility] REF [...] more than 12 months post-infection. Performed by [facility], [address] [place] [id number] [email or web address] Trung Boyer MD, Lab. Director Specimen Serum Performing Organization Address [facility] Ph one Number [facility] [address] [place] [id number] [address] [place] [address] * Homocystine, plasma (05/03/2019 8:30 AM CDT) [facility] Homocysteine 17.5 (H) 0.0 - 15.0 umol/L [place] Comment: CATHOLIC The risk for coronary vascular HOSPITAL disease increases progressively with homocysteine concentration. A 3.4 times greater risk is associated with a homocysteine concentration of greater than 15.8 umol/L as compared to a concentration below 14.1 umol/L. Specimen Plasma specimen Performing Organization Address [facility] Ph one Number [facility] DEPARTMENT OF [address] [place] [address] PATHOLOGY AND GENOMIC MEDICINE [address] * HLA autologous crossmatch (05/03/2019 8:30 AM CDT) [facility] source Peripheral Blood [facility] current [id number] [place] serum ID [facility] AXL serum 05/03/2019 08:30 AM [place] collection D&T [facility] flow XM T Negative [place] cell result, [facility] flow XM B Negative [place] cell result, [facility] HLA autologous See link below for PDF Lab [place] crossmatch Report [facility] Specimen Blood Performing Organization Address City/[facility] Ph one Number [facility] DEPARTMENT OF [address] [place] [address] PATHOLOGY AND GENOMIC MEDICINE [address] * Cytomegalovirus Ab, IgM (05/03/2019 8:30 AM CDT) Pathologist [facility] Cytomegalovirus Negative Negative [place] Ab, IgM [facility] Specimen Serum Performing Organization Address City/[facility] Ph one Number [facility] DEPARTMENT OF [address] [place] [address] PATHOLOGY AND GENOMIC MEDICINE [address] * ABORh - transplant (05/03/2019 8:30 AM CDT) Pathologist [facility] ABO grouping O [facility] Rh type POS [facility] Specimen Blood Performing Organization Address City/[facility] Ph one Number [facility] DEPARTMENT OF [address] [place] [address] PATHOLOGY AND GENOMIC MEDICINE [address] * Functional protein S (05/03/2019 8:30 AM CDT) Pathologist [facility] 91 74 - 160 % [place] protein S Comment: CATHOLIC Functional Protein S HOSPITAL performed. If result is decreased Total and Free Protein S Antigen will be performed. Specimen Blood Performing Organization Address City/[facility] Ph one Number [facility] DEPARTMENT OF [address] [place] [address] PATHOLOGY AND GENOMIC MEDICINE [address] * Functional protein C (05/03/2019 8:30 AM CDT) Functional 56 (L) 70 - 165 % [place] protein C Comment: CATHOLIC Low Protein C Activity and HOSPITAL prolonged Prothrombin time consistent with vitamin K deficiency, warfarin therapy or liver disease. Recommend repeating Protein C when PT is normal. Reviewed by Huan Keita MD, PhD. Specimen Blood Performing Organization Address City/[facility] Ph one Number [facility] DEPARTMENT OF [address] [place] [address] PATHOLOGY AND [facility] MEDICINE [address] * Lupus anticoagulant panel (05/03/2019 8:30 AM CDT) [facility] Prothrombin 15.9 (H) 11.5 - 14.5 sec [facility] INR 1.3 [place] Comment: CATHOL[facility] The International Normalized HOSPITAL Ratio (INR) is a therapeutic monitoring tool for patients who are stable on oral anticoagulant therapy. An INR of 2.0-3.0 is suggested for deep vein thrombosis/pulmonary embolism. PTT 34.0 23.0 - 36.0 sec [place] Comment: CATHOLIC PTT therapeutic range for [facility] unfractionated heparin is 61.0-112.0 seconds which corresponds to Anti-Xa 0.3-0.7 U/ml. PTT lupus 36.1 27.0 - 38.0 sec [place] anticoagulant Comment: CATHOLIC Lupus anticoagulant (LA) panel HOSPITAL consists of [...] diagnosis. DRVVT 45.4 29.0 - 46.0 sec [place] Comment: CATHOLIC This test has been modified HOSPITAL from the manufacturers instructions. The performance characteristics were determined by [facility] in a manner consistent with CLIA requirements. This test has not been cleared or approved by the U.S. Food and Drug Administration. Specimen Blood Performing Organization Address City/State/[facility] Ph one Number [facility] DEPARTMENT OF [address] [place] [address] PATHOLOGY AND GENOMIC MEDICINE [address] * Cytomegalovirus Ab, IgG (05/03/2019 8:30 AM CDT) Cytomegalovirus Positive (A) Negative [place] Ab, IgG Comment: CATHOLIC Positive; IgG antibody to CMV HOSPITAL detected which may indicate exposure to CMV infection. Specimen Serum Performing Organization Address [facility] Ph one Number [facility] DEPARTMENT OF [address] [place] [address] PATHOLOGY AND GENOMIC MEDICINE [address] * Fibrinogen (05/03/2019 8:30 AM CDT) Fibrinogen 627 (H) 200 - 450 mg/dL [facility] Specimen Blood Performing Organization Address City/[facility] Ph one Number [facility] DEPARTMENT OF [address] [place] [address] PATHOLOGY AND GENOMIC MEDICINE [address] * Antithrombin III level (05/03/2019 8:30 AM CDT) Antithrombin 81 80 - 130 % [facility] Specimen Blood Performing Organization Address [facility] one Number [facility] DEPARTMENT OF [address] [place] [address] PATHOLOGY AND GENOMIC MEDICINE [address] * Triglycerides (05/03/2019 8:30 AM CDT) Triglycerides 103 <150 mg/dL [facility] Specimen Plasma specimen Performing Organization Address [facility] one Number [facility] DEPARTMENT OF [address] [place] [address] PATHOLOGY AND [facility] MEDICINE [address] * Phosphorus level (05/03/2019 8:30 AM CDT) Phosphorus 4.6 (H) 2.4 - 4.5 mg/dL [facility] Specimen Plasma specimen Performing Organization Address [facility] Ph one Number [facility] DEPARTMENT OF [address] [place] [address] PATHOLOGY AND [facility] MEDICINE [address] * Parathyroid hormone (05/03/2019 8:30 AM CDT) PTH 507 (H) 15 - 65 pg/mL [facility] Specimen Blood Performing Organization Address City/[facility] Ph one Number [facility] DEPARTMENT OF [address] [place] [address] PATHOLOGY AND GENOMIC MEDICINE [address] * LDH (05/03/2019 8:30 AM CDT) LDH 235 (H) 87 - 225 U/L [facility] Specimen Plasma specimen Performing Organization Address City/[facility] Ph one Number [facility] DEPARTMENT OF [address] [place] [address] PATHOLOGY AND GENOMIC MEDICINE [address] * Glucose level (05/03/2019 8:30 AM CDT) Glucose 146 (H) 65 - 99 mg/dL [facility] Specimen Plasma specimen Performing Organization Address City/[facility] Ph one Number [facility] DEPARTMENT OF [address] [place] [address] PATHOLOGY AND GENOMIC MEDICINE [address] * Creatinine level (05/03/2019 8:30 AM CDT) Creatinine 4.40 (H) 0.70 - 1.20 mg/dL [facility] Specimen Plasma specimen Performing Organization Address City/[facility] Ph one Number [facility] DEPARTMENT OF [address] [place] [address] PATHOLOGY AND GENOMIC MEDICINE [address] * Cholesterol (05/03/2019 8:30 AM CDT) Cholesterol 86 <200 mg/dL [facility] Specimen Plasma specimen Performing Organization Address City/[facility] Ph one Number [facility] DEPARTMENT OF [address] [place] [address] PATHOLOGY AND GENOMIC MEDICINE [address] * Amylase level (05/03/2019 8:30 AM CDT) Amylase 46 28 - 100 U/L [facility] Specimen Plasma specimen Performing Organization Address City/[facility] Ph one Number [facility] DEPARTMENT OF [address] [place] [address] PATHOLOGY AND GENOMIC MEDICINE [address] * Urine culture (04/06/2019 8:57 AM CRUISE COORDINATOR) Urine culture Mixed lenny- more than 3 [place] isolate organisms isolated. CATHOLIC Consider resubmitting specimen HOSPITAL if clinically indicated. Comment: Specimen Information Specimen Source: Urine Specimen Site: Clean catch Specimen Urine Performing Organization Address [facility] one Number [facility] DEPARTMENT OF [address] [place] [address] PATHOLOGY AND GENOMIC MEDICINE [address] * Nicotine and cotinine, serum (04/06/2019 8:00 AM CRUISE COORDINATOR) [facility] Nicotine <2.0 0.0 - 1.9 ng/mL [facility] Cotinine <2.0 0.0 - 1.9 ng/mL [place] Comment: CATHOLIC This test was developed and HOSPITAL its performance characteristics determined by the Department of Pathology and Genomic Medicine, [facility]. Serum nicotine and metabolite cotinine are tested by HPLC tandem mass spectrometry. It has not been cleared or approved by FDA. The laboratory is regulated under CLIA as qualified to perform high-complexity testing. This test is used for clinical purposes. It should not be regarded as investigational or for research. Specimen Blood Performing Organization Address [facility] one Number [facility] DEPARTMENT OF [address] [place] [address] PATHOLOGY AND GENOMIC MEDICINE [address] * Urinalysis screen and microscopy, with reflex to culture (04/06/2019 8:00 AM CRUISE COORDINATOR) Pathologist [facility] Specimen site Clean catch [facility] Color, UA Yellow [facility] Appearance, UA Cloudy [facility] Specific 1.013 1.001 - 1.035 [place] gravity, [facility] pH, UA 6.0 5.0 - 8.5 [facility] Protein, UA 3+ (A) Negative [facility] Glucose, UA 1+ (A) Negative [facility] Ketones, UA Negative Negative [facility] Bilirubin, UA Negative Negative [facility] Blood, UA Large (A) Negative [facility] Nitrite, UA Negative Negative [facility] Urobilinogen, <2.0 <2.0 [facility] Leukocyte Large (A) Negative [place] esterase, [facility] WBC, UA >180 (H) 0 - 1 /HPF [facility] RBC, UA 70 (H) 0 - 5 /HPF [facility] Bacteria, UA Moderate (A) None seen [facility] WBC clumps, UA Moderate (A) [facility] Yeast, UA None seen [facility] Yeast with None seen [place] pseudohyphae, [facility] Specimen Urine Performing Organization Address City/[facility] Ph one Number [facility] DEPARTMENT OF [address] [place] [address] PATHOLOGY AND GENOMIC MEDICINE [address] * Syphilis total antibody (04/06/2019 8:00 AM CRUISE COORDINATOR) Syphilis total Reactive (A) Non-reactive [place] antibody Comment: CATHOLIC Treponemal antibodies are HOSPITAL screened reactive. Non-treponemal antibody test, RPR will be followed. Specimen Blood Performing Organization Address City/[facility] Ph one Number [facility] DEPARTMENT OF [address] [place] [address] PATHOLOGY AND GENOMIC MEDICINE [address] * HIV Ag/Ab combination (04/06/2019 8:00 AM CRUISE COORDINATOR) HIV Ag/Ab Non-reactive Non-reactive [facility] Specimen Blood Performing Organization Address City/[facility] Ph one Number [facility] DEPARTMENT OF [address] [place] [address] PATHOLOGY AND GENOMIC MEDICINE [address] * IA-2 antibody (04/06/2019 8:00 AM CRUISE COORDINATOR) IA-2 antibody see note [facility] Comment: Islet Antigen-2 (IA-2) Autoantibody, Serum [facility] test code [id number] IA-2, Autoantibody <5.4 U/mL (Ref Interval: 0.0-7.4) 999 INTERPRETIVE INFORMATION: Islet Antigen-2 (IA-2) Autoantibody, Serum A value greater than or equal to 7.5 Units/mL is considered positive for IA-2 autoantibodies. This assay is intended for the quantitative determination of autoantibodies to Islet Antigen-2 (IA-2) in human serum. Results should be interpreted within the context of clinical symptoms. Specimen Serum Performing Organization Address [facility] Ph one Number [facility] [address] [place] [address] [facility] [address] [place] [address] * Hepatitis B surface Ab, quantitative (04/06/2019 8:00 AM CRUISE COORDINATOR) Pathologist [facility] Hepatitis B <3.10 IU/L [facility] surface Ab Comment: The anti-HBs [...] Cellular and Tissue-Based Products (HCT/P). Performed by [facility], [address] [place] [id number] [email or web address], Trung Boyer MD, Lab. Director Specimen Serum Performing Organization Address [facility] Ph one Number [facility] [address] [place] [address] [facility] [address] [place] [address] * Hepatitis C antibody (04/06/2019 8:00 AM CRUISE COORDINATOR) Pathologist [facility] Hepatitis C Ab Non-reactive Non-reactive [facility] Specimen Blood Performing Organization Address [facility] Ph one Number [facility] DEPARTMENT OF [address] [place] [address] PATHOLOGY AND GENOMIC MEDICINE [address] * Hepatitis A antibody IgM (04/06/2019 8:00 AM CRUISE COORDINATOR) Hepatitis A IgM Non-reactive Non-reactive [facility] Specimen Performing Organization Address City/[facility] Ph one Number [facility] DEPARTMENT OF [address] [place] [address] PATHOLOGY AND GENOMIC MEDICINE [address] * Hepatitis A antibody total (04/06/2019 8:00 AM CRUISE COORDINATOR) Pathologist [facility] Hepatitis A Reactive (A) Non-reactive [place] total Ab Comment: CATHOLIC Hepatitis A Total Antibody HOSPITAL reactive. Hepatitis A IgM antibody will be performed and reported separately when completed. Specimen Blood Performing Organization Address [facility] Ph one Number [facility] DEPARTMENT OF [address] [place] [address] PATHOLOGY AND GENOMIC MEDICINE [address] * Drug yuen 9, ser/lilian, scrn w/rflx to conf (04/06/2019 8:00 AM CRUISE COORDINATOR) Pathologist [facility] Amphetamines, Negative Cutoff 30 ng/mL [facility] [...] use. Test developed and characteristics determined by [facility]. See Compliance Statement B: [employer]/ Performed by [facility], [address] [place] [address] [email or web address], Trung Boyer MD, Lab. Director Specimen Serum Performing Organization Address [facility] one [facility] [employer] [facility] [address] [place] [address] * Glutamic acid decarboxylase Ab (04/06/2019 8:00 AM CRUISE COORDINATOR) Pathologist [facility] Glutamic acid <5.0 0.0 - 5.0 IU/mL [facility] decarb Ab Comment: INTERPRETIVE INFORMATION: Glutamic Acid Decarboxylase Antibody A value greater than 5.0 IU/mL is considered positive for Glutamic Acid Decarboxylase Antibody (HERMELINDA Ab). This assay is intended for the semi-quantitative determination of the HERMELINDA Ab in human serum. Results should be interpreted within the context of clinical symptoms. Performed by [facility], [address] [place], [place] [id number] [email or web address], Trung Boyer MD, Lab. Director Specimen Serum Performing Organization Address [facility] one [facility] [employer] [facility] [address] [place] [address] * Hepatitis B core antibody total (04/06/2019 8:00 AM CRUISE COORDINATOR) Pathologist [facility] Hepatitis B Non-reactive Non-reactive [place] core total Ab [facility] Specimen Blood Performing Organization Address City/[facility] Ph one Number [facility] DEPARTMENT OF [address] [place] [address] PATHOLOGY AND [facility] MEDICINE [address] * Treponema pallidum Ab (04/06/2019 8:00 AM CRUISE COORDINATOR) Pathologist [facility] Syphilis Non-reactiveComment: Non-reactive [place] treponemal Ab Treponemal antibody is not CATHOLIC confirmed. HOSPITAL Specimen Performing Organization Address City/[facility] Ph one Number [facility] DEPARTMENT OF [address] [place] [address] PATHOLOGY AND [facility] MEDICINE [address] * ABO and Rh (04/06/2019 8:00 AM CRUISE COORDINATOR) Pathologist [facility] ABO grouping O [facility] Rh type POS [facility] Specimen Blood Performing Organization Address [facility] Ph one Number [facility] DEPARTMENT OF [address] [place] [address] PATHOLOGY AND [facility] MEDICINE [address] * C-peptide (04/06/2019 8:00 AM CRUISE COORDINATOR) [facility] C-peptide 2.2 1.1 - 4.4 ng/mL [facility] Specimen Plasma specimen Performing Organization Address City/[facility] one Number [facility] DEPARTMENT OF [address] [place] [address] PATHOLOGY AND [facility] MEDICINE [address] * Islet cell Ab, IgG (04/06/2019 8:00 AM CRUISE COORDINATOR) Pathologist [facility] Islet cell Ab <1:4 <1:4 [facility] Comment: INTERPRETIVE INFORMATION: Islet Cell Ab, IgG Islet cell antibodies (ICAs) are associated with type 1 diabetes (TID), an autoimmune endocrine disorder. ICAs may be present years before the onset of clinical symptoms. To calculate Juvenile Diabetes Foundation (JDF) units: multiply the titer x 5 (1:8 8 x 5 = 40 JDF Units). Test developed and characteristics determined by [facility]. See Compliance Statement A: [employer] Performed by [facility], [address] [place] [id number] [email or web address], Trung Boyer MD, Lab. Director Specimen Serum Performing Organization Address [facility] Ph one Number [facility] [address] [place] [address] [facility] [address] [place] [address] * RPR (04/06/2019 8:00 AM CRUISE COORDINATOR) Pathologist [facility] RPR Non-reactive Non-reactive [place] Comment: CATHOLIC Results suggest no serological HOSPITAL evidence of active syphilis infection. Possible syphilis (early or latent) or previously treated syphilis cannot be ruled out. Confirmatory treponemal test, TP-PA will be performed. Specimen Performing Organization Address [facility] Ph one Number [facility] DEPARTMENT OF [address] [place] [address] PATHOLOGY AND [facility] MEDICINE [address] * Hepatitis B surface antigen (04/06/2019 8:00 AM CRUISE COORDINATOR) [facility] Hepatitis B Non-reactive Non-reactive [place] surface Ag [facility] Specimen Blood Performing Organization Address [facility] Ph one Number [facility] DEPARTMENT OF [address] [place] [address] PATHOLOGY AND [facility] MEDICINE [address] * Partial thromboplastin time, activated (04/06/2019 8:00 AM CRUISE COORDINATOR) [facility] PTT 39.8 (H) 23.0 - 36.0 sec [place] Comment: CATHOLIC PTT therapeutic range for HOSPITAL unfractionated heparin is 61.0-112.0 seconds which corresponds to Anti-Xa 0.3-0.7 U/ml. Specimen Blood Performing Organization Address [facility] Ph one Number [facility] DEPARTMENT OF [address] [place] [address] PATHOLOGY AND [facility] MEDICINE [address] * Prothrombin time with INR (04/06/2019 8:00 AM CRUISE COORDINATOR) [facility] Prothrombin 17.0 (H) 11.5 - 14.5 sec [facility] INR 1.4 [place] Comment: CATHOLIC The International Normalized HOSPITAL Ratio (INR) is a therapeutic monitoring tool for patients who are stable on oral anticoagulant therapy. An INR of 2.0-3.0 is suggested for deep vein thrombosis/pulmonary embolism. Specimen Blood Performing Organization Address City/[facility] Ph one Number [facility] DEPARTMENT OF [address] [place] [address] PATHOLOGY AND GENOMIC MEDICINE [id number] [place] [address] * CBC with platelet and differential (04/06/2019 8:00 AM CRUISE COORDINATOR) WBC 5.48 4.50 - 11.00 k/uL [facility] RBC 2.97 (L) 4.40 - 6.00 m/uL [facility] HGB 8.0 (L) 14.0 - 18.0 g/dL [facility] HCT 25.4 (L) 41.0 - 51.0 % [facility] MCV 85.5 82.0 - 100.0 fL [facility] MCH 26.9 (L) 27.0 - 34.0 pg [facility] MCHC 31.5 31.0 - 37.0 g/dL [facility] RDW - SD 43.8 37.0 - 55.0 fL [facility] MPV 8.8 8.8 - 13.2 fL [facility] Platelet count 163 150 - 400 k/uL [facility] Nucleated RBC 0.00 /100 WBC [facility] Neutrophils 67.2 39.0 - 69.0 % [facility] Lymphocytes 21.2 (L) 25.0 - 45.0 % [facility] Monocytes 6.0 0.0 - 10.0 % [facility] Eosinophils 4.6 0.0 - 5.0 % [facility] Basophils 0.5 0.0 - 1.0 % [facility] Immature 0.5Comment: "Immature 0.0 - 1.0 % [place] granulocytes granulocytes" (promyelocytes, METHOD IST myelocytes, metamyelocytes) HOSPITAL Specimen Blood Performing Organization Address City/[facility] Ph one Number [facility] DEPARTMENT OF [address] [place] [address] PATHOLOGY AND GENOMIC MEDICINE [id number] [place] [address] * Hemoglobin A1c (04/06/2019 8:00 AM CRUISE COORDINATOR) Hemoglobin A1C 5.7 (H) 4.0 - 5.6 % [place] Comment: CATHOLIC HbA1c cutoffs for diagnosing HOSPITAL diabetes: 4.0% [...] Performing Organization Address City/State/Zipcode Ph one Number [facility] DEPARTMENT OF [address] [place] [address] PATHOLOGY AND GENOMIC MEDICINE [facility] [address] * Comprehensive metabolic panel (04/06/2019 8:00 AM CRUISE COORDINATOR) Sodium 140 135 - 148 mEq/L [facility] Potassium 5.3 (H) 3.5 - 5.0 mEq/L [facility] Chloride 113 (H) 98 - 112 mEq/L [facility] CO2 15 (L) 24 - 31 mEq/L [facility] Anion gap 12@ANIO 7 - 15 mEq/L [facility] BUN 63 (H) 6 - 20 mg/dL [facility] Creatinine 4.42 (H) 0.70 - 1.20 mg/dL [facility] Glucose 119 (H) 65 - 99 mg/dL [facility] Calcium 6.6 (L) 8.3 - 10.2 mg/dL [facility] Protein 9.2 (H) 6.3 - 8.3 g/dL [place] Comment: CATHOLIC Wgdkdcs1328.6-7.0 g/dL [facility] 1 krfr9264.4-7.6 g/dL 7 months-4ozrm799.1-7.3 g/dL 1-2 ydsme456.6-7.5 g/dL >3 ydobm430.0-8.0 g/dL 18-7512715.3-8.3 g/dL Albumin 2.6 (L) 3.5 - 5.0 g/dL [facility] A/G ratio 0.4 (L) 0.7 - 3.8 [facility] Alkaline 184 (H) 40 - 129 U/L [place] phosphatase [facility] AST 18 10 - 50 U/L [facility] ALT 8 5 - 50 U/L [facility] Total bilirubin <0.2 0.0 - 1.2 mg/dL [facility] Specimen Plasma specimen Performing Organization Address City/State/Zipcode Ph one Number [facility] DEPARTMENT OF [address] [place] [address] PATHOLOGY AND GENOMIC MEDICINE [facility] [address] [place] [id number] HOSPITAL after 2018 Insurance Type Payer Benefit Subscriber ID Effective Phone Address Plan / Dates Group PPO BCBS BCBS OUT xxxxxxxxxxxxxxx 2018-P OF STATE resent Advance Directives For more information, please contact: [phone] 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
--- OUTSIDE RECORDS SUMMARY | 2019-08-04 23:45 | XMS REPORT | Continuity of Care Document ---
Author Author [facility] t Organization [facility] Address [address] [place] [address] Phone Unavailable Care Team Providers Care Dredge Pumper Name Role Phone MD ABHIJIT YODER MD PCP Alexandre MARSH Attphys Unavailable Hola Pressley MD Attphys YANETH WEAVER Attphys Unavailable Ty FOSS, Bisi Attphys Unavailable Reg MA M Melani Attphys Unavailable ABHIJIT YODER Attphys Unavailable Lorie Driver Attphys Unavailable Gaurav Vila Attphys Unavailable HAMPEL, TONY Attphys Unavailable DELLA NG M.D. Attphys Unavailable ROSEY, P LUZ MARINA Attphys Unavailable MARK, S AMBICA Attphys Unavailable MANEEVESE, V YOJANA Attphys Unavailable Gen Cook Attphys Enedelia Ha Attphys Allison Ng Attphys Yayo HILLS Attphys Unavailable HAMPEL, TONY Admphys Unavailable ABHIJIT YODER Admphys Unavailable Payers Payer Name Policy Type Policy Number Effective Date Expiration Date S dylan BCBSBCBS OUT OF STATExxxxxxxxxxxxxxx2-PresentPPO xxxxxxxxxxxxxxx 2018 00:00:00 [facility] Blue Cross [facility] Ppo NA 2018 00:00:00 [facility] [employer] Ppo [id number] [facility] Problems Condition Name Condition Details Condition Category Status Onset Date Resolution Date Last Treatment Date Treating Clinician Comments Source 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 2019-08-01 00:00:00 Alejanrdo Arias Pre-transplant evaluation for kidney and pancreas yoder splant Pre-transplant evaluation for kidney and pancreas transplant Disease Active 2019-04-06 00:00:00 Alejandro salazar Diabetes mellitus type 1 Diabetes mellitus type 1 Disease Acti ve 2019-02-21 00:00:00 Alejandro salazar M75.41 - IMPINGEMENT 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 Active 06/17/2017 [facility] Diagnosis Active 2017-06-17 00:01:00 2017-08-13 12:21:00 [facility] Yogesh 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 Active 2017-04-16 00:00:00 Allison Arias Infection of right knee Infection of right knee Disease Active 2016-03-27 00:00:00 Alejandro salazar Acute renal failure Acute renal failure Problem Active 2015-08-09 00:00 :00 [facility] Dehydration Dehydration Problem Active 2015-08-09 00:00:00 [facility] Diarrhea Diarrhea Problem Active 2015-08-09 00:00:00 [facility] GI bleed GI bleed Problem Active 2015-08-09 00:00:00 [facility] Hyperglycemia Hyperglycemia Problem Active 2015-08-09 00:00:00 [facility] Sepsis Sepsis Problem Active 2015-04-15 00:00:00 [facility] Renal insufficiency Renal insufficiency Problem Active 2015-04-15 00:00 :00 [facility] Bacteremia Bacteremia Problem Active 2015-03-30 00:00:00 [facility] Prostatitis Prostatitis Problem Active 2015-03-30 00:00:00 [facility] Urinary tract infection UTI (urinary tract infection) Problem Active 2015-03-30 00:00:00 [facility] Pyelonephritis Pyelonephritis Problem Active 2015-02-10 00:00:00 [facility] History of left foot drop History of left foot drop Problem Active [facility] Arthralgia of right ankle Arthralgia of right ankle Problem Active [facility] Equinus contracture of right ankle Equinus contracture of right ankle Problem Active [facility] Fracture of right tibial plateau, closed , with routine healing, subsequent encounter Fracture of right tibial plateau, closed , with routine healing, subsequent encounter Problem Active [facility] Acute renal insufficiency Acute renal insufficiency Problem Active [facility] Bladder wall thickening Bladder wall thickening Problem Active [facility] Fever Fever Problem Active [facility] Hydroureteronephrosis Hydroureteronephrosis Problem Active [facility] Hypomagnesemia Hypomagnesemia Problem Active [facility] Indwelling catheter present on admission Indwelling ca theter present on admission Problem Active [facility] Obstructive uropathy Obstructive uropathy Problem Active [facility] Displacement of ureteral stent Ureteral stent displacement Problem Activ e [facility] Vomiting Vomiting Problem Active [facility] Abdominal pain Abdominal pain Problem Active [facility] Constipation Constipation Problem Active [facility] Edema of extremities Edema extremities Problem Active [facility] Allergies, Adverse Reactions, Alerts Allergy Name Allergy Type Status Severity Reaction(s) Onset Date Inacti ve Date Treating Clinician Comments Source Iodinated Contrast Media Allergy to substance Active 11-05-10 00:00:00 [facility] Dye Propensity to adverse reactions to drug Active 2016-03-17 00:00:00 CT contrast. IV dye. Excessive sneezing. Alejandro Arias CT CONTRAST DA Active MO 2015-10-12 00:00:00 [facility] PO CONTRAST Allergy to substance Active Mild 2007-07-06 00:00:00 [facility] No Known Medication Allergies No Known Medication Allergies Active [facility] Family History Family Member Diagnosis Comments Start Date Stop Date Source Maternal grandmother Hypertension Timi ojeda [facility] Maternal grandmother Kidney disease Alejandro Arias Natural mother Diabetes [facility] Social History Social Habit Start Date Stop Date Quantity Comments Source Sex Assigned At [facility] Exposure to SARS-CoV-2 (event) Not sure Alejandro Arias Alcohol intake 2019-08-01 00:00:00 2019-08-01 00:00:00 Current non-drinker of alcohol (finding) Alejandro Arias Social History 2017-06-02 18:15:00 2017-06-02 18:15:00 [facility] Smoking Status Start Date Stop Date Source [...] unit/mL injection 2019-04-06 10:16: 42 Yes 5U Q.[id number] Inject 5 Units under the ski n 3 (three) times a day before meals. Alejandro Arias calcium carbonate (TUMS) 200 mg calcium (500 mg) chewable ta blet 2019-02-21 15:10:36 Yes 1{tbl} Q.[id number] 3D Chew 1 tablet 3 (three) times daily after meals. Alejandro Arias cholecalciferol, vitamin D3, (VITAMIN D3) 2,000 unit capsule capsule 2019-02-21 15:10:36 Yes 2000U QD Take 2,000 Units b y mouth daily. Alejandro Arias ergocalciferol (VITAMIN D2) 50,000 unit capsule 2019-02-21 15:10 :36 Yes 57516H Q7D Take 50,000 Units by mouth once [...] QD Take 1 tablet by mouth daily. Aljeandro Arias insulin DETEMIR (LEVEMIR) 100 unit/mL (3 mL) insulin pen 2019-02-21 15:10:36 2019-02-21 00:00:00 No 30U QD Inject 30 Units unde r the skin nightly. Alejandro Arias Gabapentin 300 MG Oral Capsule Gabapentin 300 MG Oral Capsul e 2018-12-10 00:00:00 Yes DELLA NG M.D. Q0.3333D TAKE 1 CA PSULE 3 TIMES DAILY. [facility] Furosemide Furosemide 2018-06-27 13:06:00 2018-10-17 00:00:00 No 40 Daily [facility] Nifedipine (Nifedipine Er) 30 Mg TAB.ER.24 Nifedipine (Nifedipine Er) 30 Mg TAB.ER.24 2018-06-27 13:06:00 2018-10-17 00:00:00 No 60 Daily [facility] Fluconazole (Diflucan) 100 Mg TABLET Fluconazole (Diflucan) 100 Mg TABLET 2019-06-22 00:00:00 No 100 Daily [facility] Furosemide (Lasix) 40 Mg TABLET Furosemide (Lasix) 40 Mg TABLET 2019-06-22 00:00:00 No 40 Daily as needed for Edema To Lo wer Extremities [facility] Gabapentin Gabapentin 2019-06-22 00:00:00 No 300 Thr ee Times A Day [facility] Insulin Aspart (Novolog) 100 Unit/1 Ml CARTRIDGE Insul in Aspart (Novolog) 100 Unit/1 Ml CARTRIDGE 2019-06-22 00:00:00 No 5 Befo re Meals [facility] Magnesium Oxide (Magox 400) 400 Mg TABLET Magnesium Ox jaziel (Magox 400) 400 Mg TABLET 2019-06-22 00:00:00 No 2 Three Times A Day [facility] Nifedipine (Nifedipine Er) 60 Mg TAB.ER.24 Nifedipine (Nifedipine Er) 60 Mg TAB.ER.24 2019-06-22 00:00:00 No 30 Twice A Day [facility] Sodium Bicarbonate Sodium Bicarbonate 2019-06-22 00:00:00 No 2 Three Times A Day [facility] Ergocalciferol (Vitamin D2) (Vitamin D2) 2,000 Unit TA BLET Ergocalciferol (Vitamin D2) (Vitamin D2) 2,000 Unit TABLET 2019-05-30 00:00:00 No 87287 Q Week [facility] Lactulose Lactulose 2019-02-11 00:00:00 No 30 Every 6 Hours as needed for Constipation [facility] Metoclopramide Hcl (Reglan) 10 Mg TABLET Metoclopramid e Hcl (Reglan) 10 Mg TABLET 2019-02-11 00:00:00 No 10 Before Meals And At Bedtime [facility] Carlene Concepcion 2019-02-11 00:00:00 No 1 Daily [facility] Sennosides/Docusate Sodium (Senokot-S Tablet) 1 Each T ABLET Sennosides/Docusate Sodium (Senokot-S Tablet) 1 Each TABLET 2018-10-31 00:00:00 No [facility] Nifedipine (Nifedipine Er) 30 Mg TAB.ER.24 Nifedipine (Nifedipine Er) 30 Mg TAB.ER.24 2018-06-27 00:00:00 No Daily [facility] Vyzulta Vyzulta 2018-06-21 00:00:00 No .024 Daily [facility] Amlodipine Besylate Amlodipine Besylate 2018-05-05 00:00:00 No 10 Daily [facility] Metoprolol Tartrate Metoprolol Tartrate 2018-05-05 00:00:00 No 25 Twice A Day [facility] Ciprofloxacin Hcl (Cipro) 500 Mg TABLET Ciprofloxacin Hcl (C ipro) 500 Mg TABLET 2017-08-29 00:00:00 No 500 Daily [facility] Doxycycline Hyclate Doxycycline Hyclate 2017-08-29 00:00:00 No 100 Twice A Day [facility] Fluconazole Fluconazole 2017-08-29 00:00:00 No 200 D aily [facility] Insulin Detemir (Levemir) 100 Unit/1 Ml VIAL Insulin D etemir (Levemir) 100 Unit/1 Ml VIAL 2017-08-29 00:00:00 No 20 Bedtime [facility] Oxybutynin Chloride (Oxybutynin Chloride Er) 5 Mg TAB. ER.24 Oxybutynin Chloride (Oxybutynin Chloride Er) 5 Mg TAB.ER.24 2017-08-29 00:00:00 No 15 Daily [facility] Cephalexin Cephalexin 2016-06-04 00:00:00 No 500 Fou r Times Daily [facility] Hydrocodone Bit/Acetaminophen ([place] 5-325 Tablet) 1 E ach TABLET Hydrocodone Bit/Acetaminophen ([place] 5-325 Tablet) 1 Each TABLET 2016-06-04 00: 00:00 No 1 Every 6 Hours as needed for Pain [facility] Promethazine Hcl Promethazine Hcl 2016-06-04 00:00:00 No 25 Every 4 Hours [facility] Tramadol Hcl (Ultram) 50 Mg TABLET Tramadol Hcl (Ultram) 50 Mg T ABLET 2016-06-04 00:00:00 No Every 6 Hours as nee ded for Pain [facility] Fluticasone Propionate Fluticasone Propionate 2015-08-08 00:00:00 No 1 Twice A Day [facility] Meropenem (Merrem) 500 Mg INJ Meropenem (Merrem) 500 Mg INJ 2015-08-08 00:00:00 No 500 Every 8 Hours [facility] Metoclopramide Hcl (Reglan) 10 Mg TABLET Metoclopramid e Hcl (Reglan) 10 Mg TABLET 2015-08-08 00:00:00 No 10 Before Meals And At Bedtime [facility] Pantoprazole Sodium (Protonix) 40 Mg TABLET. Pantopr azole Sodium (Protonix) 40 Mg TABLET. 2015-08-08 00:00:00 No 40 Every Morni ng [facility] Amoxicillin/Potassium Clav (Augmentin 500-125 Tablet) 1 Each TABLET Amoxicillin/Potassium Clav (Augmentin 500-125 Tablet) 1 Each TABLET 2015-04-11 00:00:00 No 500 Twice A Day [facility] Fluconazole (Diflucan) 100 Mg TABLET Fluconazole (Diflucan) 100 Mg TABLET 2015-04-11 00:00:00 No Daily [facility] Tamsulosin Hcl (Flomax*) 0.4 Mg CAP Tamsulosin Hcl (Flomax*) 0.4 Mg CAP 2015-03-30 00:00:00 No .4 Bedtime [facility] Acetaminophen With Codeine (Tylenol With Codeine #3 Ta blet) 1 Each TABLET Acetaminophen With Codeine (Tylenol With Codeine #3 Tablet) 1 Each TABLET 2015-03-08 00:00:00 No 300 Every 6 Hours as nee ded for Pain [facility] Senna Fruit/Conc/Doc Sod/Bisa (Senna-S Tablet) 1 Ea TA B Senna Fruit/Conc/Doc Sod/Bisa (Senna-S Tablet) 1 Ea TAB 2015-03-08 00:00:00 No 1 Bedtime [facility] Hydrocodone Bit/Acetaminophen ([place] 5-325 Tablet) 1 E ach TABLET Hydrocodone Bit/Acetaminophen ([place] 5-325 Tablet) 1 Each TABLET 2015-02-22 00: 00:00 No Daily [facility] Insulin Npl/Insulin Lispro (Humalog Mix 50-50 Kwikpen) 100 Unit/1 Ml INSULN.PEN Insulin Npl/Insulin Lispro (Humalog Mix 50-50 Kwikpen) 100 Unit/1 Ml INSULN.PEN 2015-02-22 00:00:00 No 15 Units Every A.m . [facility] Lisinopril Lisinopril 2015-02-22 00:00:00 No Ketty ly [facility] Amoxicillin/Potassium Clav (Augmentin 875-125 Tablet) 1 Each TABLET Amoxicillin/Potassium Clav (Augmentin 875-125 Tablet) 1 Each TABLET 2015-02-11 00:00:00 No Twice A Day [facility] Cephalexin Monohydrate (Keflex) 500 Mg CAPSULE Cephale leonela Monohydrate (Keflex) 500 Mg CAPSULE 2015-02-11 00:00:00 No 500 Three Cm es A Day [facility] Docusate Sodium (Colace) 100 Mg CAP Docusate Sodium (Colace) 100 Mg CAP 2015-02-11 00:00:00 No Daily [facility] Insulin Glargine,Hum.rec.anlog (Lantus) 100 Unit/1 Ml CARTRIDGE Insulin Glargine,Hum.rec.anlog (Lantus) 100 Unit/1 Ml CARTRIDGE 2014 00:00:00 No 45 Units At Bedtime [facility] Metformin Hcl Metformin Hcl 2015-02-11 00:00:00 No 500 Twice Daily [facility] Vital Signs Vital Name Observation Time Observation Value Comments Source Body Temperature 2019-06-22 20:30:00 97.4 [degF] [facility] BMI (Body Mass Index) 2019-06-12 17:12:00 29.3 kg/m2 [facility] Weight 2019-06-12 11:09:00 210 [lb_av] [facility] Body height 2019-05-03 07:20:00 180.3 cm Alejandro Arias Body weight 2019-05-03 07:20:00 103.42 kg Alejandro Arias BMI 2019-05-03 07:20:00 31.80 kg/m2 Alejandro Arias Systolic blood pressure 2019-04-06 07:50:00 182 mm[Hg] pt s tates he hasnt taken his meds today. [facility] Diastolic blood pressure 2019-04-06 07:50:00 98 mm[Hg] pt states he hasnt taken his meds today. [facility] Heart rate 2019-04-06 07:50:00 90 /min Alejandro Arias Body temperature 2019-04-06 07:50:00 35.78 Ashley Catrina Cunninghamist Respiratory rate 2019-04-06 07:50:00 20 /min Catrina Arias Oxygen saturation in Arterial blood by Pulse oximetry 04-06 07:50:00 99 /min Alejandro Arias BMI Calculated 2017-12-01 14:24:00 Meet al Yogesh Weight 2017-12-01 14:24:00 [facility] Height 2017-12-01 14:24:00 170.18 cm [facility] Systolic (mm Hg) 2017-12-01 14:24:00 Flo rial Yogesh Diastolic (mm Hg) 2017-12-01 14:24:00 Mem orial Yogesh Heart Rate 2017-12-01 14:24:00 [facility] Procedures Procedure Date / Time Performed Performing Clinician Sourc e CARDIOLIPIN ANTIBODIES 2019-08-01 12:17:00 Yaneth Weaver X-ray of chest, two views 2019-06-16 00:00:00 [facility] Ultrasound guidance for vascular access 2019-06-02 00:00:00 [facility] INSERT OF TUNNEL VAD INTO CHEST SUBCU/FASCIA, OPEN APPROACH 2019-06-02 00:00:00 [facility] REMOVAL OF TUNNEL VAD FROM TRUNK SUBCU/FASCIA, OPEN AP PROACH 2019-06-02 00:00:00 [facility] INSERTION OF INFUSION DEV INTO SUP VENA CAVA, PERC APPROACH 2019-06-02 00:00:00 [facility] ULTRASONOGRAPHY OF SUPERIOR VENA CAVA, GUIDANCE 2019-06-02 00:00 :[address] [facility] [address] of abdomen and pelvis without contrast 2019-05-30 00:00:00 [facility] Ultrasound guidance for vascular access 2019-05-16 [facility]:00[facility] INSERT OF TUNNEL VAD INTO CHEST SUBCU/FASCIA, PERC APPROACH 2019-05-16 00:00:00 [facility] INSERTION OF INFUSION DEVICE INTO R ATRIUM, PERC APPROACH 05-15 00:00:00 [facility] ULTRASONOGRAPHY OF SUPERIOR VENA CAVA, GUIDANCE 2019-05-16 00:00 :00 [facility] INSERT OF INFUSION DEV INTO PERITON CAV, PERC ENDO APPROACH 2019-05-12 00:00:00 [facility] IRRIGATION OF PERITON CAV USING DIALYSATE, PERC APPROACH 2019-04 00:00:00 [facility] REMOVAL OF INTRALUMINAL DEVICE FROM URETER, ENDO 2019-05-10 00:0 0:00 [facility] DILATION OF RIGHT URETER WITH INTRALUMINAL DEVICE, ENDO 00:00:00 [facility] CHANGE DRAINAGE DEVICE IN BLADDER, EXTERNAL APPROACH 2019-05-10 00:00:00 [facility] X-ray of chest, two views 2019-05-06 00:00:00 JC CATES [facility] XR CHEST 2 VW 2019-05-03 09:35:[address] ABDOMEN PELVIS WO CONTRAST 2019-05-03 09:28:50 Weaver, Claudio Cunninghamist CHOLESTEROL 2019-05-03 08:30:00 Weaver, Yaneth mendez [facility] TRIGLYCERIDES 2019-05-03 08:30:00 Weaver, Yaneth mendez [facility] GLUCOSE LEVEL 2019-05-03 08:30:00 Weaver, Yaneth mendez [facility] CREATININE LEVEL 2019-05-03 08:30:00 Weaver, Yaneth Mistry on [facility] PHOSPHORUS LEVEL 2019-05-03 08:30:00 Weaver, Yaneth Mistry on [facility] LDH 2019-05-03 08:30:00 Weaver, Yaneth Cunninghamist CYTOMEGALOVIRUS [...] ABORH - TRANSPLANT 2019-05-03 08:30:00 Weaver, Yaneth Arias TB T-SPOT 2019-05-03 08:30:00 Weaver, Yaneth Cunninghamist HOMOCYSTINE, PLASMA 2019-05-03 08:30:00 Weaver, Yaneth Cunninghamist ANTITHROMBIN III LEVEL 2019-05-03 08:30:00 Weaver, Yaneth Arias FUNCTIONAL PROTEIN C 2019-05-03 08:30:00 Weaver, Yaneth Arias FUNCTIONAL PROTEIN S 2019-05-03 08:30:00 Weaver, Yaneth Cunninghamist CARDIOLIPIN ANTIBODIES 2019-05-03 08:30:00 Weaver, Yaneth Cunninghamist MTHFR MUTATION 2019-05-03 08:30:00 Weaver, Yaneth mendez [facility] FIBRINOGEN 2019-05-03 08:30:00 Weaver, Yaneth Arias LUPUS [...] REFLEX TO CULTURE 202 08:00:00 Weaver, Yaneth Arias HIV AG/AB COMBINATION 2019-04-06 08:00:00 Weaver, Yaneth [...] DEVICE FROM KIDNEY, EXTERNAL APPROACH 2018-02 00:00:00 [facility] DRAINAGE OF RIGHT KIDNEY WITH DRAINAGE DEVICE, PERC AP PROACH 2019-02-15 00:00:00 [facility] DILATION OF RIGHT URETER WITH INTRALUMINAL DEVICE, ENDO 00:00:00 [facility] DILATION OF LEFT URETER, ENDO 2019-02-15 00:00:00 [facility] FLUOROSCOPY OF KIDNEY, URETER & BLADDER USING L [facility] NTRAST 2019-02-15 00:00:00 [facility] CHANGE DRAINAGE DEVICE IN BLADDER, EXTERNAL APPROACH 2019-02-15 00:00:00 [facility] Echo guide for biopsy 2019-02-15 00:00:00 [facility] RESECTION OF PREPUCE, EXTERNAL APPROACH 2018-11-05 00:00:00 [facility] CHANGE DRAINAGE DEVICE IN BLADDER, EXTERNAL APPROACH 2018-11-05 00:00:00 [facility] DILATION OF BILATERAL URETERS, ENDO 2018-11-05 00:00:00 [facility] FLUOROSCOPY OF KIDNEY, URETER & BLADDER USING L [facility] NTRAST 2018-11-05 00:00:00 [facility] LOWER ESOPHAGUS, ENDO, DIAGN 2018-11-01 00:00:00 [facility] EXCISION OF STOMACH, PYLORUS, ENDO, DIAGN 2018-11-01 00:00:[address] [facility] [address] of abdomen and pelvis without contrast 2018-10-31 00:00:[address] [facility] [address] of abdomen and pelvis without contrast 2018-10-18 00:00:00 [facility] Hernia repair<sup>1</sup> Meet Nagyann RUSTY [facility] Provision of collar<sup>2</sup> [facility] Plan of Care Planned Activity Planned Date Details Comments Source Future Scheduled Test 2019-09-24 00:00:00 INFLUENZA VACCINE [code = INFLUENZA VACCINE] [facility] Future Scheduled Test 1990 00:00:00 DIABETIC FOOT EXAM [code = DIABETIC FOOT EXAM] [facility] Future Scheduled Test 1980 00:00:00 DIABETIC RETINAL E YE EXAM [code = DIABETIC RETINAL EYE EXAM] [facility] Instructions AV [facility] Encounters Start Date/Time End Date/Time Encounter Type Admission Type Attendi [facility] Care Department Encounter ID Source 2019-08-01 00:00:00 2019-08-01 00:00:[address] [facility] [id number] [facility] 2019-08-01 00:00:00 2019-08-01 00:00:00 Outpatient MER[facility] PRESSLEY [facility] [id number] [facility] 2019-06-12 11:12:00 2019-06-22 20:38:00 Discharged Inpatient [address] [facility] [id number] [facility] 2019-06-09 03:55:00 2019-06-09 06:51:00 Departed Emergency Room 1 MARIELLE MARSH [facility] [id number] [facility] Patients [facility] 2019-05-30 02:39:00 2019-06-03 17:47:00 Discharged Inpatient 1 [facility] [id number] [facility] - Patients [facility] 2019-05-06 21:01:00 2019-05-21 14:22:00 Discharged Inpatient 1 ABHIJIT YODER [facility] [id number] [facility]. [place] joness [facility] 2019-05-03 00:00:00 2019-05-03 00:00:[address] [facility] [id number] [facility] 2019-05-03 00:00:00 2019-05-03 00:00:00 Outpatient WEAVER, ROSALINA RD [facility] [id number] [facility] 2019-05-03 00:00:00 2019-05-03 00:00:[address] [facility] [id number] [facility] 2019-03-20 22:29:00 2019-03-21 03:04:00 [facility] [id number] [facility] 2019-02-15 09:15:00 2019-02-20 13:07:00 Discharged Inpatient 3 LALO, [facility] [id number] [facility] 2019-01-14 13:07:00 2019-01-14 13:07:00 Registered Clinic 3 [facility] [id number] [facility] 2018-12-10 08:30:00 2018-12-10 08:30:00 Appointment; NELSON NG M.D. MELTON, DANIELLE, M.D. [facility] [id number] [facility] ns 2018-11-11 07:14:00 2018-11-11 12:00:00 Departed Emergency Room [address] [facility] [id number] [facility] 2018-10-31 03:34:00 2018-11-08 11:44:00 Discharged Inpatient [address] [facility] [id number] [facility] 2018-10-17 02:37:00 2018-10-29 10:57:00 Discharged Inpatient [address] [facility] [id number] [facility] 2018-06-20 18:21:00 2018-06-27 15:47:00 Discharged Inpatient [facility] [id number] [facility] 2018-06-11 09:00:00 2018-06-11 09:00:00 Appointment; NELSON NG M.D. MELTON, DANIELLE, M.D. [facility] [id number] [facility] 2018-05-04 01:45:00 2018-05-07 17:46:00 Discharged Inpatient 1 YOJANA HADDAD [facility] [id number] [facility] 2018-02-12 12:00:00 2018-02-12 12:00:00 Appointment; NELSON NG M.D. MELTON, DANIELLE, M.D. [facility] UTP [id number] [facility] 2018-01-06 15:15:00 2018-01-06 15:15:00 Appointment; NELSON NG M.D. MELTON, DANIELLE, M.D. [facility] UTP [id number] [facility] 2017-12-11 11:30:00 2017-12-11 11:30:00 Appointment; NELSON NG M.D. MELTON, DANIELLE, M.D. [facility] UTP [id number] [facility] 2017-12-01 09:00:00 2017-12-01 23:59:59 Outpatient Skye Cook [facility] [facility] [id number] 2017-11-30 10:32:00 2017-12-01 23:59:59 Outpatient [facility] [id number] 2017-11-13 11:45:00 2017-11-13 11:45:00 Appointment; NELSON NG M.D. MELTON, DANIELLE, M.D. [facility] [id number] [facility] 2017-08-29 05:19:00 2017-09-01 12:03:00 Discharged Inpatient 1 MARIELLE MARSH [facility] [id number] [facility] 2017-08-07 11:00:00 2017-08-07 11:00:00 Appointment; NELSON NG M.D. MELTON, DANIELLE, M.D. [facility] [id number] [facility] 2017-08-07 08:30:00 2017-08-07 08:30:00 Appointment; NELSON NG M.D. MELTON, DANIELLE, M.D. [facility] [id number] [facility] 2017-07-23 12:13:00 2017-07-23 23:59:00 Outpatient LelandJoaquín morrison [id number] 2017-06-02 13:15:00 2017-06-02 13:15:00 Appointment; NLESON NG M.D. MELTON, DANIELLE, M.D. [facility] [id number] [facility] 2017-06-02 13:15:00 2017-06-02 13:15:00 Outpatient Omayra Ng [facility] [id number] 2017-05-08 11:15:00 2017-05-08 11:15:00 Appointment; NELSON NG M.D. MELTON, DANIELLE, M.D. [facility] [id number] [facility] 2017-02-25 10:00:00 2017-02-25 10:00:00 Appointment; NELSON NG M.D. MELTON, DANIELLE, M.D. [facility] [id number] [facility] 2017-01-25 02:48:00 2017-01-30 17:07:00 Discharged Inpatient [place] [facility] [id number] [facility] 2017-01-07 14:15:00 2017-01-07 14:15:00 Appointment; NELSON NG M.D. MELTON, DANIELLE, M.D. [facility] [id number] [facility] Results Test Description Test Time Test Comments Results Result Comments Source CHEST SINGLE (PORTABLE) 2019-08-04 23:03:00 [facility] [address] [place] [address] Patient Name: MANJIT LUO MR #: [id number] : 1980 Age/Sex: 39/M Req #: [id number] Adm Physician: Ordered by: MARIELLE MARSH MD Report #: [id number] Location: ER Room/Bed: Procedure: [id number] DX/CHEST SINGLE (PORTABLE) Exam Date: 08/04/19 Exam Time: 2209 REPORT STATUS: Signed ADDENDUM #1 Left subclavian central line in place with tip projecting over cavoatrial junction. Signed by: Dr. Dona Wesley MD on 08/04/2019 11:35 PM ORIGINAL REPORT EXAMINATION: CHEST SINGLE (PORTABLE) INDICATION: FEVER [id number] COMPARISON: 06/16/2019 FINDINGS: AP view TUBES and LINES: None. LUNGS: Lungs are well inflated. Mild central peribronchial cuffing. No definite focal consolidation. PLEURA: No pleural effusion or pneumothorax. HEART AND MEDIASTINUM: The cardiomediastinal silhouette is unremarkable. BONES AND SOFT TISSUES: No acute osseous lesion. Soft tissues are unremarkable. UPPER ABDOMEN: No free air under the diaphragm. IMPRESSION: Mild central peribronchial cuffing. No definite focal consolidations. Signed by: Dr. Dona Wesley MD on 08/04/2019 11:05 PM Dictated By: DONA WESLEY MD [id number] Transcr ibed By: TIFFANY on 08/04/19 2305 COPY TO: MARIELLE MARSH MD CT ABDOMEN/PELVIS WO 2019-08-04 22:15:00 [place] [address] Patient Name: MANJIT LUO MR #: [id number] : 1980 Age/Sex: 39/M Req #: [id number] Adm Physician: Ordered by: MARIELLE MARSH MD Report #: [id number] Location: ER Room/Bed: Procedure: CT/CT ABDOMEN/PELVIS WO Exam Date: 08/04/19 Exam Time: 2204 REPORT STATUS: Signed EXAM: CT Abdomen and Pelvis WITHOUT contrast INDICATION: FEVER, ABD PAIN, PERITONEAL DIAYLYSIS [id number] COMPARISON: CT dated 05/30/2019 TECHNIQUE: Abdomen and pelvis were scanned utilizing a multidetector helical scanner from the lung base to the pubic symphysis without administration of IV contrast. Absence of intravenous contrast decreases sensitivity for detection of focal lesions and vascular pathology. Coronal and sagittal reformations were obtained. Routine protocol was performed. IV CONTRAST: None ORAL CONTRAST: None COMPLICATIONS: None RADIATION DOSE: Total DLP: 449.66 mGy*cm Estimated effective dose: (DLP x 0.015 x size factor) mSv CTDIvol has been reviewed. It is below the limits set by the Radiation Protocol Committee (RPC). FINDINGS: LINES and TUBES: Suprapubic Barcenas catheter. Dialysis catheter with tip coiled in the pelvis. LOWER THORAX: Unremarkable HEPATOBILIARY: Unenhanced liver is unremarkable. No biliary ductal dilation. GALLBLADDER: Surgically absent. SPLEEN: Splenomegaly. 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 Pancreatic ductal dilatation up to 7 mm. ADRENALS: No adrenal nodules KIDNEYS/URETERS: Right nephrectomy. Soft tissue thickening or complex collection in the surgical bed, measuring 2.4 x 1 cm (series 301, image 65). Moderately dilated left renal pelvis as well as mild hydroureter. Limited for evaluation of renal parenchyma without intravenous contrast. No left renal calculus. GI TRACT: No abnormal distention or evidence of bowel obstruction. Unchanged lower rectal wall thickening. Appendix is normal. PELVIC ORGANS/BLADDER: Again seen suprapubic Barcenas catheter in place with diffuse bladder wall thickening and perivesical fat stranding. LYMPH NODES: Right iliac chain and inguinal lymphadenopathy, again seen. For example 1.8 cm right external iliac lymph node, previously 2.1 cm. VESSELS: Unremarkable. PERITONEUM / RETROPERITONEUM: No free air or fluid. BONES: Mottled iliac bones with increased sclerosis, could be due to renal osteodystrophy. Bilateral L5 pars defects without significant spondylolisthesis. SOFT TISSUES: Right posterior flank subcutaneous fat stranding, likely postsurgical. IMPRESSION: 1. Limited study without intravenous contrast. 2. Status post right nephrectomy. Soft tissue thickening versus phlegmonous material or a small hematoma in the right nephrectomy bed as described above. 3. No left nephrolithiasis. Moderately dilated left renal pelvis and mild left hydroureter without evidence of obstructive urolithiasis. 4. Again seen bladder wall thickening, probably due to chronic cystitis. 5. Changes of chronic pancreatitis. 6. Again seen right inguinal and iliac chain lymphadenopathy. 7. Splenomegaly. Signed by: Dr. Dona Wesley MD on 08/04/2019 10:32 PM Dictated By: DONA WESLEY MD [id number] Transcribed By: TIFFANY on 08/04/192231 COPY TO: MARIELLE MARSH MD Capillary blood glucose measurement by glucometer (mas s/volume) 2019-06-22 19:22:00 Test Item Bedside Glucose (test code = 71883-9) 328 70-120 Meter ID: [id number] Hospital of Laredoerum or plasma sodium measurement (moles/volume)2019-06-22 05:05:00* Test Item Value Reference Range Interpretation Comments Sodium Level (test code = 2951-2) 135 136-145 [facility] Center[facility] blood ionized calcium measurement (mass/volume)2019-06-22 05:05:00* Test Item Value Reference Range Interpretation Comments Ionized Calcium (test code = 41480-5) 1.1 1.09-1.30 [facility]um or plasma potassium measurement (moles/volume)2019-06-22 05:05:00* Test Item Value Reference Range Interpretation Comments Potassium Level (test code = 2823-3) 4.5 3.5-5.1 [facility] or plasma chloride measurement (moles/volume)2019-06-22 05:05:00* Test Item Value Reference Range Interpretation Comments Chloride Level (test code = 2075-0) 100 98-107 [facility]erum or plasma carbon dioxide, total measurement (moles/volume)2019-06-22 05:05:00* Test Item Value Reference Range Interpretation Comments Carbon Dioxide Level (test code = 2028-9) 30 22-29 [facility]oerum or plasma anion qok5580-75-99 05:05:00* Test Item Value Reference Range Interpretation Comments Anion Gap (test code = 38758-6) 9.5 8-16 [facility] or plasma urea nitrogen measurement (mass/volume)2019-06-22 05:05:00* Test Item Value Reference Range Interpretation Comments Blood Urea Nitrogen (test code = 3094-0) 34 7-26 [facility]um or plasma creatinine measurement (mass/volume)2019-06-22 05:05:00* Test Item Value Reference Range Interpretation Comments Creatinine (test code = 2160-0) 4.42 0.72-1.25 [facility]um or plasma urea nitrogen/creatinine mass wecye9423-04-07 05:05:00* Test Item Value Reference Range Interpretation Comments BUN/Creatinine Ratio (test code = 3097-3) 8 6-25 [facility] CenterEstimated glomerular filtration rate (GFR) ezecwprrhtgna8840-38-12 05:05:00* Test Item Value Reference Range Interpretation Comments Estimat Glomerular Filtration Rate (test code = 834679804) 15 >60 Ranges were taken from the National Kidney Disease Education Program and the [facility] Kidney Foundation literature.Reference ranges:60 or greater: Uuufli66-24 ( for 3 consecutive months): Chronic kidney disease 15 or less: Kidney failureBaptist Medical CenterGlucose damxzmycggc2988-42-86 05:05:00* Test Item Value Reference Range Interpretation Comments Glucose Level (test code = YXP1168) 271 74-118 [facility]um or plasma calcium measurement (mass/volume)2019-06-22 05:05:00* Test Item Value Reference Range Interpretation Comments Calcium Level (test code = 53727-7) 7.7 8.4-10.2 [facility] or plasma albumin measurement (mass/volume)2019-06-22 05:05:00* Test Item Value Reference Range Interpretation Comments Albumin (test code = 1751-7) 1.6 3.5-5.0 [facility] CenterBlood leukocytes automated count (number/volume)2019-06-20 05:10:00* Test Item Value Reference Range Interpretation Comments White Blood Count (test code = 6690-2) 3.29 4.8-10.8 [facility] CenterBlood erythrocytes automated count (number/volume)2019-06-20 05:10:00* Test Item Value Reference Range Interpretation Comments Red Blood Count (test code = 789-8) 3.57 4.3-5.7 [facility] CenterBlood hemoglobin measurement (moles/volume)2019-06-20 05:10:00* Test Item Value Reference Range Interpretation Comments Hemoglobin (test code = 27531-6) 9.0 14.0-18.0 [facility] CenterAutomated blood hematocrit (volume fraction)2019-06-20 05:10:00* Test Item Value Reference Range Interpretation Comments Hematocrit (test code = 4544-3) 29.1 38.2-49.6 [facility] CenterAutomated erythrocyte mean corpuscular jvyimn3307-29-62 05:10:00* Test Item Value Reference Range Interpretation Comments Mean Corpuscular Volume (test code = 787-2) 81.5 81-99 [facility] CenterAutomated erythrocyte mean corpuscular hemoglobin (mass per erythrocyte)2019-06-20 05:10:00* Test Item Value Reference Range Interpretation Comments Mean Corpuscular Hemoglobin (test code = 785-6) 25.2 28-32 [facility] CenterAutatrium health mercy erythrocyte mean corpuscular hemoglobin concentration measurement (mass/volume)2019-06-20 05:10:00* Test Item Value Reference Range Interpretation Comments Mean Corpuscular Hemoglobin Concent (test code = 786-4) 30.9 31-35 [facility] CenterRDW AyjAr-Oxp0054-41-27 05:10:00* Test Item Value Reference Range Interpretation Comments Red Cell Distribution Width (test code = 25593-3) 14.9 11.7 -14.4 [facility] blood platelet count (count/volume)2019-06-20 05:10:00* Test Item Value Reference Range Interpretation Comments Platelet Count (test code = 777-3) 133 140-360 [facility]ed [facility] segmented neutrophil count as percentage of total tucashcobz4017-09-07 05:10:00* Test Item Value Reference Range Interpretation Comments Neutrophils (%) (Auto) (test code = 60002-3) 48.9 38.7-80.0 [facility] CenterAutwakemed cary hospitaled blood lymphocyte count as percentage ot total towyueryko9473-09-42 05:10:00* Test Item Value Reference Range Interpretation Comments Lymphocytes (%) (Auto) (test code = 736-9) 31.0 18.0-39.1 [facility] CenterAutwakemed cary hospitaled blood monocyte count as percentage of total mqfnpselty1391-63-88 05:10:00* Test Item Value Reference Range Interpretation Comments Monocytes (%) (Auto) (test code = 5905-5) 11.9 4.4-11.3 [facility] CenterAutomated blood eosinophil count as percentage of total adjhnbcwza9616-32-00 05:10:00* Test Item Value Reference Range Interpretation Comments Eosinophils (%) (Auto) (test code = 713-8) 7.3 0.0-6.0 [facility] CenterAutomated blood basophil count as percentage of total kopleoikcp1293-12-57 05:10:00* Test Item Value Reference Range Interpretation Comments Basophils (%) (Auto) (test code = 706-2) 0.3 0.0-1.0 [facility] CenterFluoroscopic procedure less than one hour hmabvfig2530-36-99 05:10:00* Test Item Value Reference Range Interpretation Comments IM GRANULOCYTES % (test code = IM GRANULOCYTES %) 0.6 0.0- 1.0 [facility] CenterAutomated blood neutrophil count 2019-06-20 05:10:00* Test Item Value Reference Range Interpretation Comments Neutrophils # (Auto) (test code = 751-8) 1.6 2.1-6.9 [facility] CenterBlood lymphocytes count (number/volume) 2019-06-20 05:10:00* Test Item Value Reference Range Interpretation Comments Lymphocytes # (Auto) (test code = 74929-9) 1.0 1.0-3.2 [facility] CenterBlood monocytes automated count (number/volume)2019-06-20 05:10:00* Test Item Value Reference Range Interpretation Comments Monocytes # (Auto) (test code = 742-7) 0.4 0.2-0.8 [facility] CenterAutomated blood eosinophil count 2019-06-20 05:10:00* Test Item Value Reference Range Interpretation Comments Eosinophils # (Auto) (test code = 711-2) 0.2 0.0-0.4 [facility] CenterAutomated blood basophil count (count/volume)2019-06-20 05:10:00* Test Item Value Reference Range Interpretation Comments Basophils # (Auto) (test code = 704-7) 0.0 0.0-0.1 [facility] CenterFluoroscopic procedure less than one hour brszjouf1705-88-25 05:10:00* Test Item Value Reference Range Interpretation Comments Absolute Immature Granulocyte (auto (shin t code = Absolute Immature Granulocyte (auto) 0.02 0-0.1 [facility] CenterCHEST 2 CACWK5194-20-08 10:46:00 [facility] [address] [place] [address] Patient Name: MANJIT LUO MR #: [id number] : 1980 Age/Sex: 38/M Req #: [id number] Adm Physician: ABHIJIT YODER MD Ordered by: TONY MAY MD Report #: [id number] Location: MED/SURG Room/Bed: [facility] Procedure: [id number] DX/CH EST 2 VIEWS Exam Date: Exam [...] 047 COPY TO: TONY MAY MD Blood wpaddil2304-74-27 09:50:00* Test Item Value Reference Range Interpretation Comments Blood Culture (test code = 49400984) NO GROWTH AFTER 5 DAYS, FINAL REPORT [facility]um or plasma intact pararthyroid hormone measurement (mass/volume)2019-06-15 05:20:00* Test Item Value Reference Range Interpretation Comments Parathyroid Hormone (Intact) (test code = 2731-8) 313 15-6 5 Performed at: - [address] [id number] Director: Doc Bartlett MD, Phone: [phone] Hospital of Laredoerum or plasma magnesium measurement (mass/volume)2019-06-13 17:37:00* Test Item Value Reference Range Interpretation Comments Magnesium Level (test code = 44113-3) 1.5 1.3-2.1 [facility] CenterCHES SINGLE (PORTABLE)2019-06-13 17:09:00 [place] [address] Patient Name: MANJIT LUO MR #: [id number] : 1980 Age/Sex: 38/M Req #: [id number] Adm Physician: ABHIJIT YODER MD Ordered by: TONY MAY MD Report #: [id number] Location: MED/SURG Room/Bed: [facility] Procedure: [id number] DX/ EST SINGLE (PORTABLE) Exam Date: 06/13/19 Exam [...] Bilirubin (test code = 1975-2) 0.3 0.2-1.2 [facility] CenterFluoroscopic procedure less than one hour ynoccora7029-00-38 05:30:00* Test Item Value Reference Range Interpretation Comments Aspartate Amino Transf (AST/SGOT) (test code = Aspartate Amino Transf (AST/SGOT)) 38 5-34 [facility]um or plasma alanine aminotransferase measurement (enzymatic activity/volume)2019-06-13 05:30:00* Test Item Value Reference Range Interpretation Comments Alanine Aminotransferase (ALT/SGPT) (test code = 1742-6) 22 0-55 [facility]oerum or plasma protein measurement (mass/volume)2019-06-13 05:30:00* Test Item Value Reference Range Interpretation Comments Total Protein (test code = 2885-2) 7.6 6.5-8.1 [facility] CenterPlasma globulin measurement (mass/volume) 2019-06-13 05:30:00* Test Item Value Reference Range Interpretation Comments Globulin (test code = 90734-9) 5.1 2.3-3.5 [facility]um or plasma albumin/globulin mass cieam0197-90-97 05:30:00* Test Item Value Reference Range Interpretation Comments Albumin/Globulin Ratio (test code = 1759-0) 0.5 0.8-2.0 [facility] or plasma alkaline phosphatase measurement (enzymatic activity/volume)2019-06-13 05:30:00* Test Item Value Reference Range Interpretation Comments Alkaline Phosphatase (test code = 6768-6) 332 40-150 [facility] CenterUrine color vnbifohdmfxby8451-73-33 12:24:00* Test Item Value Reference Range Interpretation Comments Urine Color (test code = 5778-6) YELLOW YELLOW [facility] CenterUrine uvslbdo9983-98-61 12:24:00* Test Item Value Reference Range Interpretation Comments Urine Clarity (test code = 87410-6) TURBID CLEAR [facility]aredopecific gravity of Urine by Test strip 2019-06-12 12:24:00* Test Item Value Reference Range Interpretation Comments Urine Specific [place] (test code = 5811-5) 1.020 1.010-1.02 5 [facility] CenterU[facility] pH measurement by automated test mhlhw4788-90-63 12:24:00* Test Item Value Reference Range Interpretation Comments Urine pH (test code = 05324-6) 6 5-7 [facility] CenterUrine leukocyte esterase detection by hcxbjhrx6698-36-42 12:24:00* Test Item Value Reference Range Interpretation Comments Urine Leukocyte Esterase (test code = 5799-2) 1+ NEGATIVE [facility] CenterUrine nitrite lbrtrskys0286-13-57 12:24:00* Test Item Value Reference Range Interpretation Comments Urine Nitrite (test code = 65806-3) NEGATIVE NEGATIVE [facility] CenterU[facility] protein measurement by test strip (mass/volume)2019-06-12 12:24:00* Test Item Value Reference Range Interpretation Comments Urine Protein (test code = 5804-0) >=300 NEGATIVE [facility] CenterU[facility] glucose syhrdtgrn5492-02-26 12:24:00* Test Item Value Reference Range Interpretation Comments Urine Glucose (UA) (test code = 2349-9) NEGATIVE NEGATIVE [facility] CenterUrine ketones detection by automated test sclxq4695-59-18 12:24:00* Test Item Value Reference Range Interpretation Comments Urine Ketones (test code = 10516-2) TRACE NEGATIVE [facility] CenterUrine urobilinogen measurement by test strip (mass/volume)2019-06-12 12:24:00* Test Item Value Reference Range Interpretation Comments Urine Urobilinogen (test code = 86541-3) 0.2 0.2-1 [facility] CenterU[facility] total bilirubin measurement (mass/volume)2019-06-12 12:24:00* Test Item Value Reference Range Interpretation Comments Urine Bilirubin (test code = 1978-6) NEGATIVE NEGATIVE [facility] CenterU[facility] erythrocytes wzvuewjkc0816-79-53 12:24:00* Test Item Value Reference Range Interpretation Comments Urine Blood (test code = 55386-7) 3+ NEGATIVE [facility] CenterAutomated urine sediment leukocyte count by microscopy (number/high power field)2019-06-12 12:24:00* Test Item Value Reference Range Interpretation Comments Urine WBC (test code = 5821-4) 21-50 0-5 [facility] CenterErythrocytes detection in urine sediment by light cyjitlqsvw0089-27-05 12:24:00* Test Item Value Reference Range Interpretation Comments Urine RBC (test code = 55160-6) 11-20 0-5 [facility] CenterBacteria detection in urine sediment by light oowvfbsrwj8485-91-85 12:24:00* Test Item Value Reference Range Interpretation Comments Urine Bacteria (test code = 18757-1) MANY NONE [facility] CenterEpithelial cells detection in urine sediment by light svqqvixvwg1917-70-46 12:24:00* Test Item Value Reference Range Interpretation Comments Urine Epithelial Cells (test code = 67409-8) RARE NONE [facility] CenterMucus detection in urine sediment by light ijtaaizkua8644-34-13 12:24:00* Test Item Value Reference Range Interpretation Comments Urine Mucus (test code = 8247-9) FEW RARE [facility] CenterBNP Toe-aDjp4106-52-19 12:15:00* Test Item Value Reference Range Interpretation Comments B-Type Natriuretic Peptide (test code = 55793-0) 218.9 0-100 [facility] or plasma creatine kinase measurement (enzymatic activity/volume)2019-06-12 12:15:00* Test Item Value Reference Range Interpretation Comments Creatine Kinase (test code = 2157-6) 65 30-200 [facility] or plasma creatine kinase MB measurement (mass/volume)2019-06-12 12:15:00* Test Item Value Reference Range Interpretation Comments Creatine Kinase MB (test code = 11085-7) 3.90 0-5.0 [facility] CenterTroponin I measurement by highly sensitive enzyme vdvtdcoazjr6448-03-86 12:15:00* Test Item Value Reference Range Interpretation Comments Troponin I (test code = 48926-1) 0.053 0-0.300 [facility] or plasma lipase measurement (enzymatic activity/volume)2019-06-12 12:15:00* Test Item Value Reference Range Interpretation Comments Lipase (test code = 3040-3) 14 8-78 [facility] or plasma ethanol measurement (mass/volume)2019-06-12 12:15:00* Test Item Value Reference Range Interpretation Comments Ethyl Alcohol Level (test code = 5643-2) < 10.0 0.0-10.0 [facility] Center[facility])2019-06-12 12:12:00 [place] [address] Patient Name: MANJIT LUO MR #: [id number] : 1980 Age/Sex: 38/M Req #: [id number] Adm Physician: Ordered by: JONATHAN YODER DO Report #: [id number] Location: ER Room/Bed: Procedure: [id number] DX/ CHEST SINGLE (PORTABLE) Exam Date: 06/12/19 [...] Dictated By: ALEXIA ROSE MD, MD 1215 [address] scribed By: TIFFANY on 06/12/19 1215 COPY TO: JONATHAN YODER DO Urine JSR9221-87-46 06:13:00* Test Item Value Reference Range Interpretation Comments Urine WBC (test code = 5821-4) >50 0-5 H [facility] CenterU[facility] UTU7010-26-34 06:13:00* Test Item Value Reference Range Interpretation Comments Urine RBC (test code = 10648-9) 11-20 0-5 H [facility] CenterU[facility] Vcjhwiiu1432-29-72 06:13:00* Test Item Value Reference Range Interpretation Comments Urine Bacteria (test code = 99128-8) FEW NONE [facility] CenterU[facility] Epithelial Tnudo1948-37-46 06:13:00 * Test Item Value Reference Range Interpretation Comments Urine Epithelial Cells (test code = 64628-3) FEW NONE [facility] CenterU[facility] Rluwm2433-21-95 05:56:00* Test Item Value Reference Range Interpretation Comments Urine Color (test code = 5778-6) YELLOW YELLOW [facility] CenterUrine Jupmlbc9601-35-04 05:56:00* Test Item Value Reference Range Interpretation Comments Urine Clarity (test code = 11367-0) CLOUDY CLEAR H [facility] CenterUrine Specific Ocnkciu5225-30-86 05:56:00 * Test Item Value Reference Range Interpretation Comments Urine Specific [place] (test code = 5811-5) 1.025 1.010-1.02 5 [facility] CenterU[facility] gE8163-71-03 05:56:00* Test Item Value Reference Range Interpretation Comments Urine pH (test code = 34371-3) 7 5-7 [facility] CenterU[facility] Leukocyte Wbilszet7978-23-61 05:56:00* Test Item Value Reference Range Interpretation Comments Urine Leukocyte Esterase (test code = 5799-2) MODERATE NEGATIVE [facility] Mclfakj1765-39-71 05:56:00* Test Item Value Reference Range Interpretation Comments Urine Nitrite (test code = 37843-3) NEGATIVE NEGATIVE [facility] CenterU[facility] Tukhaak4232-57-81 05:56:00* Test Item Value Reference Range Interpretation Comments Urine Protein (test code = 5804-0) >=300 NEGATIVE [facility] CenterU[facility] Glucose (UA)2019-06-09 05:56:00* Test Item Value Reference Range Interpretation Comments Urine Glucose (UA) (test code = 2349-9) NEGATIVE NEGATIVE [facility] Tkrpnwy5244-49-65 05:56:00* Test Item Value Reference Range Interpretation Comments Urine Ketones (test code = 35523-6) NEGATIVE NEGATIVE [facility] CenterU[facility] Ftgxvvhzwbyq9748-88-78 05:56:00* Test Item Value Reference Range Interpretation Comments Urine Urobilinogen (test code = 75032-7) 0.2 0.2-1 [facility] CenterU[facility] Xcxlrovmv1553-35-49 05:56:00* Test Item Value Reference Range Interpretation Comments Urine Bilirubin (test code = 1978-6) NEGATIVE NEGATIVE [facility] CenterU[facility] Ktyrz5703-67-64 05:56:00* Test Item Value Reference Range Interpretation Comments Urine Blood (test code = 93037-7) 2+ NEGATIVE [facility] CenterAmylase Aygts0697-21-38 05:47:00* Test Item Value Reference Range Interpretation Comments Amylase Level (test code = 1798-8) 41 25-125 [facility] CenterLipase2020-04-16 05:47:00* Test Item Value Reference Range Interpretation Comments Lipase (test code = 3040-3) 15 8-78 [facility] Dajjr9788-10-12 05:37:00* Test Item Value Reference Range Interpretation Comments Sodium Level (test code = 2951-2) 135 136-145 L [facility] CenterPotassium Seavz1229-49-37 05:37:00* Test Item Value Reference Range Interpretation Comments Potassium Level (test code = 2823-3) 5.0 3.5-5.1 [facility] CenterChloride Ampfm3468-41-65 05:37:00* Test Item Value Reference Range Interpretation Comments Chloride Level (test code = 2075-0) 107 98-107 [facility] CenterCarbon Dioxide Rwxlb1502-40-03 05:37:00* Test Item Value Reference Range Interpretation Comments Carbon Dioxide Level (test code = 2028-9) 20 22-29 L [facility] CenterAnion Lbz2535-61-17 05:37:00* Test Item Value Reference Range Interpretation Comments Anion Gap (test code = 69681-3) 13.0 8-16 [facility] CenterBlood Urea Cwsbhmpn4336-41-64 05:37:00* Test Item Value Reference Range Interpretation Comments Blood Urea Nitrogen (test code = 3094-0) 55 7-26 H [facility] CenterCreatinine2020-04-16 05:37:00* Test Item Value Reference Range Interpretation Comments Creatinine (test code = 2160-0) 5.13 0.72-1.25 H [facility] CenterBUN/Creatinine Rhxgb3444-39-10 05:37:00* Test Item Value Reference Range Interpretation Comments BUN/Creatinine Ratio (test code = 3097-3) 11 6-25 [facility] CenterEstimat Glomerular Filtration Rate 2019-06-09 05:37:00* Test Item Value Reference Range Interpretation Comments Estimat Glomerular Filtration Rate (test code = 201003988) 13 >60 L Ranges were taken from the National Kidney Disease Education Program and the [facility] Kidney Foundation literature.Reference ranges:60 or greater: Xxkdwr41-68 ( for 3 consecutive months): Chronic kidney disease 15 or less: Kidney failureBaptist Medical CenterGlucose Rnuua2388-22-01 05:37:00* Test Item Value Reference Range Interpretation Comments Glucose Level (test code = RJY4571) 148 74-118 H [facility] CenterCalcium Bxium7037-56-72 05:37:00* Test Item Value Reference Range Interpretation Comments Calcium Level (test code = 05102-3) 7.6 8.4-10.2 L [facility] CenterTotal Njjalygbs3982-56-55 05:37:00* Test Item Value Reference Range Interpretation Comments Total Bilirubin (test code = 1975-2) 0.2 0.2-1.2 [facility] CenterAspartate Amino Transf (AST/SGOT) 2019-06-09 05:37:00* Test Item Value Reference Range Interpretation Comments Aspartate Amino Transf (AST/SGOT) (test code = Aspartate Amino Transf (AST/SGOT)) 18 5-34 [facility] CenterAlanine Aminotransferase (ALT/SGPT) 2019-06-09 05:37:00* Test Item Value Reference Range Interpretation Comments Alanine Aminotransferase (ALT/SGPT) (test code = 1742-6) 17 0-55 [facility] CenterTotal Srgronr9074-33-76 05:37:00* Test Item Value Reference Range Interpretation Comments Total Protein (test code = 2885-2) 8.0 6.5-8.1 [facility] CenterAlbumin2020-04-16 05:37:00* Test Item Value Reference Range Interpretation Comments Albumin (test code = 1751-7) 2.7 3.5-5.0 L [facility] CenterGlobulin2020-04-16 05:37:00* Test Item Value Reference Range Interpretation Comments Globulin (test code = 54340-4) 5.3 2.3-3.5 H [facility] CenterAlbumin/Globulin Osiha8038-44-58 05:37:00 * Test Item Value Reference Range Interpretation Comments Albumin/Globulin Ratio (test code = 1759-0) 0.5 0.8-2.0 L [facility] CenterAlkaline Bgnmcbafbll0489-87-47 05:37:00* Test Item Value Reference Range Interpretation Comments Alkaline Phosphatase (test code = 6768-6) 279 40-150 H [facility] CenterABDOMEN-1VIEW (KUB)2019-06-09 05:32:00 [facility] [address] [address] Patient Name: MANJIT LUO MR #: [id number] : 1980 Age/Sex: 38/M Req #: [id number] Adm Physician: Ordered by: MARIELLE MARSH MD Report #: [id number] Location: ER Room/Bed: Procedure: [id number] DX/ABDOMEN-1VIEW (KUB) Exam Date: Exam Time: REPORT STATUS: Signed EXAM: Abdo men Radiograph 1 View(s) INDICATION: back pain, has stent to right ureter , has peritonial cath Y COMPARISON: Abdominal CT 05/30/2019 FINDINGS: No abnormalities in the lower chest. Right internal nephroureteral alonso ter with proximal and distal coils in [...] 5:36 AM Dictated By: Sherice ROBERTSON DO Transcribed By: TIFFANY on 06/09/19535 COPY TO: MARIELLE MARSH MD Bacterial urine zbonxqn9094-77-49 05:25:00* Test Item Value Reference Range Interpretation Comments Urine Culture (test code = 630-4) SUMIT PARAPSILOSIS [facility] CenterWhite Blood Zwelk4638-03-01 05:08:00* Test Item Value Reference Range Interpretation Comments White Blood Count (test code = 6690-2) 6.14 4.8-10.8 [facility] CenterRed Blood Uutok3052-97-30 05:08:00* Test Item Value Reference Range Interpretation Comments Red Blood Count (test code = 789-8) 3.63 4.3-5.7 L [facility] CenterHemoglobin2020-04-16 05:08:00* Test Item Value Reference Range Interpretation Comments Hemoglobin (test code = 53883-4) 9.3 14.0-18.0 L [facility] CenterHematocrit2020-04-16 05:08:00* Test Item Value Reference Range Interpretation Comments Hematocrit (test code = 4544-3) 29.7 38.2-49.6 L [facility] CenterMean Corpuscular Jsemym2675-06-31 05:08:00* Test Item Value Reference Range Interpretation Comments Mean Corpuscular Volume (test code = 787-2) 81.8 81-99 [facility] CenterMean Corpuscular Vlunqzdsfj6779-99-17 05:08:00* Test Item Value Reference Range Interpretation Comments Mean Corpuscular Hemoglobin (test code = 785-6) 25.6 28-32 L [facility] CenterMean Corpuscular Hemoglobin Concent 2019-06-09 05:08:00* Test Item Value Reference Range Interpretation Comments Mean Corpuscular Hemoglobin Concent (test code = 786-4) 31.3 31-35 [facility] CenterRed Cell Distribution Uuxzf8194-25-37 05:08:00* Test Item Value Reference Range Interpretation Comments Red Cell Distribution Width (test code = 23656-6) 15.0 11.7 -14.4 H [facility] CenterPlatelet Fdlum4118-28-91 05:08:00* Test Item Value Reference Range Interpretation Comments Platelet Count (test code = 777-3) 141 140-360 [facility] CenterNeutrophils (%) (Auto)2019-06-09 05:08:00 * Test Item Value Reference Range Interpretation Comments Neutrophils (%) (Auto) (test code = 34760-8) 68.2 38.7-80.0 [facility] CenterLymphocytes (%) (Auto)2019-06-09 05:08:00 * Test Item Value Reference Range Interpretation Comments Lymphocytes (%) (Auto) (test code = 736-9) 18.7 18.0-39.1 [facility] CenterMonocytes (%) (Auto)2019-06-09 05:08:00* Test Item Value Reference Range Interpretation Comments Monocytes (%) (Auto) (test code = 5905-5) 6.2 4.4-11.3 [facility] CenterEosinophils (%) (Auto)2019-06-09 05:08:00 * Test Item Value Reference Range Interpretation Comments Eosinophils (%) (Auto) (test code = 713-8) 4.1 0.0-6.0 [facility] CenterBasophils (%) (Auto)2019-06-09 05:08:00* Test Item Value Reference Range Interpretation Comments Basophils (%) (Auto) (test code = 706-2) 0.7 0.0-1.0 [facility] CenterIM GRANULOCYTES %2019-06-09 05:08:00* Test Item Value Reference Range Interpretation Comments IM GRANULOCYTES % (test code = IM GRANULOCYTES %) 2.1 0.0- 1.0 H [facility] CenterNeutrophils # (Auto)2019-06-09 05:08:00* Test Item Value Reference Range Interpretation Comments Neutrophils # (Auto) (test code = 751-8) 4.2 2.1-6.9 [facility] CenterLymphocytes # (Auto)2019-06-09 05:08:00* Test Item Value Reference Range Interpretation Comments Lymphocytes # (Auto) (test code = 44455-1) 1.2 1.0-3.2 [facility] CenterMonocytes # (Auto)2019-06-09 05:08:00* Test Item Value Reference Range Interpretation Comments Monocytes # (Auto) (test code = 742-7) 0.4 0.2-0.8 [facility] CenterEosinophils # (Auto)2019-06-09 05:08:00* Test Item Value Reference Range Interpretation Comments Eosinophils # (Auto) (test code = 711-2) 0.3 0.0-0.4 [facility] CenterBasophils # (Auto)2019-06-09 05:08:00* Test Item Value Reference Range Interpretation Comments Basophils # (Auto) (test code = 704-7) 0.0 0.0-0.1 [facility] CenterAbsolute Immature Granulocyte (auto 2019-06-09 05:08:00* Test Item Value Reference Range Interpretation Comments Absolute Immature Granulocyte (auto (shin t code = Absolute Immature Granulocyte (auto) 0.13 0-0.1 H [facility] or plasma amylase measurement (enzymatic activity/volume)2019-06-09 04:50:00* Test Item Value Reference Range Interpretation Comments Amylase Level (test code = 1798-8) 41 25-125 [facility] CenterBlood Dewjepv3019-20-32 01:59:00* Test Item Value Reference Range Interpretation Comments Blood Culture (test code = 14589601) NO GROWTH AFTER 5 DAYS, FINAL REPORT [facility] CenterBedside Ohlykmv0599-01-45 16:41:00* Test Item Value Reference Range Interpretation Comments Bedside Glucose (test code = 81627-7) 71 70-120 Meter ID: [id number] [facility] Glucose 2019-06-03 16:41:00* Test Item Value Reference Range Interpretation Comments Bedside Glucose (test code = 10886-6) 71 70-120 Meter ID: [id number] Medical CenterUrine Culture 2019-06-03 10:15:00* Test Item Value Reference Range Interpretation Comments Urine Culture (test code = 630-4) No Result Data Provided [facility] CenterUrine Fctqjna7813-59-83 10:15:00* Test Item Value Reference Range Interpretation Comments Urine Culture (test code = 630-4) No Result Data Provided [facility] CenterIR MUKHNZC7966-19-28 15:49:00 [address] [address] Patient Name: MANJIT LUO MR #: [id number] : 1980 Age/Sex: 38/M Req #: [id number] Adm Physician: ABHIJIT YODER MD Ordered by: FAIZA DOWNEY Report #: [id number] Location: [facility] Room/Bed: [facility] Procedure: [id number] DX/IR CONSULT Exam Date: Exam Time: REPORT [...] 30. Primary Ope rator: Gen Anthony MD. Control Systems Developer: None. Approach: Left internal jugular vein Estimated [...] the needle into the IVC. A 6 [place] peel-away sheath was placed. A subcutaneous tunnel was created in the left anterior chest wall by blunt dissection. A 6 [place] dual-lumen tunneled central line was brought through [...] TO: FAIZA DOWNEY TUNNELLED CVC INSERT W/O LYOG5651-11-76 15:49:00 [address] [address] [place] [address] Patient Name: MANJIT LUO MR #: [id number] : 1980 Age/Sex: 38/M Req #: [id number] Adm Physician: ABHIJIT YODER MD Ordered by: ABHIJIT YODER MD Report #: [id number] Location: MED/SURG3 Room/Bed: [facility] Procedure: [id number] IR/TU NNELLED CVC INSERT W/O PORT Exam Date: Exam Time: REPORT STATUS: Signed Procedures: 1. Tunneled central line placement 2. Tunneled dialysis catheter removal. History: Need for long-term IV antibiotics. Modality: Sonography and fluoroscopy. Sedation: fentanyl 50 mcg was given intravenously for conscious sedation. Vital signs were monitored throughout the procedure by a nurse, and remained stable. Physician intra-service time was 30. Strap Buckler: Gen Anthony MD. Control Systems Developer: None. Approach: Left internal jugular vein Estimated [...] the needle into the IVC. A 6 [place] peel-away sheath was placed. A subcutaneous tunnel was created in the left anterior chest wall by blunt dissection. A 6 [place] dual- lumen tunneled central line was brought [...] MD 51 Transcribed By : TIFFANY on 06/02/19 155 COPY TO: ABHIJIT YODER MD GUIDANCE FOR VASCULAR TVOFC6915-26-68 15:49:00 [address] [address] Patient Name: MANJIT LUO MR #: [id number] : 1980 Age/Sex: 38/M Req #: [id number] Adm Physician: ABHIJIT YODER MD Ordered by: FAIZA DOWNEY Report #: [id number] Location: MED/SURG3 Room/Bed: [facility] Procedure: [id number] US/US GUIDANCE FOR VASCULAR ACCES Exam Date: [...] remained stable. Physician intra-service time was 30. Strap Buckler: Gen Anthony MD. Control Systems Developer: None. Approach: Left internal jug ular vein [...] the needle into the IVC. A 6 [place] peel-away sheath was placed. A subcutaneous tunnel was created in the left anterior chest wall by blunt dissection. A 6 [place] dual- lumen tunneled central line was brought [...] on 06/02/191551 COPY TO: FAIZA DOWNEY Prothrombin Podj1589-36-55 12:37:00* Test Item Value Reference Range Interpretation Comments Prothrombin Time (test code = 5902-2) 15.4 11.9-14.5 H [facility] CenterProthromb Time International Ratio 2019-06-02 12:37:00* Test Item Value Reference Range Interpretation Comments Prothromb Time International Ratio (test code = 6301-6) 1.15 Oral Anticoagulant Therapy INR Values:1. Low Intensity Therapy 1.5 - 2.02 . Moderate Intensity Therapy 2.0 - 3.03. High Intensity Therapy(1) 2.5 - 3. 54. High Intensity Therapy(2) 3.0 - 4.05. Panic Value INR > 5.0 [facility] CenterProthrombin Tvaa0268-40-08 12:37:00* Test Item Value Reference Range Interpretation Comments Prothrombin Time (test code = 5902-2) 15.4 11.9-14.5 H [facility] CenterProthromb Time International Ratio 2019-06-02 12:37:00* Test Item Value Reference Range Interpretation Comments Prothromb Time International Ratio (test code = 6301-6) 1.15 Oral Anticoagulant Therapy INR Values:1. Low Intensity Therapy 1.5 - 2.02 . Moderate Intensity Therapy 2.0 - 3.03. High Intensity Therapy(1) 2.5 - 3. 54. High Intensity Therapy(2) 3.0 - 4.05. Panic Value INR > 5.0 [facility] CenterProthrombin time (PT) in platelet poor plasma by coagulation cxcin9677-04-96 12:20:00* Test Item Value Reference Range Interpretation Comments Prothrombin Time (test code = 5902-2) 15.4 11.9-14.5 [facility] CenterINR in Platelet poor plasma by Coagulation kzapk7386-27-85 12:20:00* Test Item Value Reference Range Interpretation Comments Prothromb Time International Ratio (test code = 6301-6) 1.15 Oral Anticoagulant Therapy INR Values:1. Low Intensity Therapy 1.5 - 2.02 . Moderate Intensity Therapy 2.0 - 3.03. High Intensity Therapy(1) 2.5 - 3. 54. High Intensity Therapy(2) 3.0 - 4.05. Panic Value INR > 5.0 [facility] CenterHepatitis B Surface Jbvyuap8872-35-61 08:56:00* Test Item Value Reference Range Interpretation Comments Hepatitis B Surface Antigen (test code = 5196-1) Negative Negat stuart Performed at: [address] [id number] Director: Doc Bartlett MD, Phone: [phone] Medical CenterHepatitis B Surface Blcfyhb9316-16-76 08:56:00* Test Item Value Reference Range Interpretation Comments Hepatitis B Surface Antigen (test code = 5196-1) Negative Negat stuart Performed at: [facility] [address] [id number] Director: Doc Bartlett MD, Phone: [phone] Medical CenterBlood Baatcex8459-77-51 01:59:00* Test Item Value Reference Range Interpretation Comments Blood Culture (test code = 59898034) NO GROWTH AFTER 72 HOURS [facility] or plasma hepatitis B virus surface antigen detection by ztlqqucrytn6278-12-47 14:15:00* Test Item Value Reference Range Interpretation Comments Hepatitis B Surface Antigen (test code = 5196-1) Negative Negat stuart Performed at: [facility] [id number] Director: Doc Bartlett MD, Phone: [phone] Hospital of Laredoodium Uffei7057-63-49 07:00:00* Test Item Value Reference Range Interpretation Comments Sodium Level (test code = 2951-2) 136 136-145 [facility] CenterPotassium Qaqei6228-30-47 07:00:00* Test Item Value Reference Range Interpretation Comments Potassium Level (test code = 2823-3) 5.2 3.5-5.1 H [facility] CenterChloride Mmygb0259-93-35 07:00:00* Test Item Value Reference Range Interpretation Comments Chloride Level (test code = 2075-0) 109 98-107 H [facility] CenterCarbon Dioxide Ijcyg0576-84-98 07:00:00* Test Item Value Reference Range Interpretation Comments Carbon Dioxide Level (test code = 2028-9) 20 22-29 L [facility] CenterAnion Qcn0043-77-57 07:00:00* Test Item Value Reference Range Interpretation Comments Anion Gap (test code = 32779-7) 12.2 8-16 [facility] CenterBlood Urea Fxoptwor6988-34-93 07:00:00* Test Item Value Reference Range Interpretation Comments Blood Urea Nitrogen (test code = 3094-0) 59 7-26 H [facility] CenterCreatinine2020-04-08 07:00:00* Test Item Value Reference Range Interpretation Comments Creatinine (test code = 2160-0) 5.91 0.72-1.25 H [facility] CenterBUN/Creatinine Txqft0411-30-01 07:00:00* Test Item Value Reference Range Interpretation Comments BUN/Creatinine Ratio (test code = 3097-3) 10 6-25 [facility] CenterEstimat Glomerular Filtration Rate 2019-06-01 07:00:00* Test Item Value Reference Range Interpretation Comments Estimat Glomerular Filtration Rate (test code = 782417753) 11 >60 L Ranges were taken from the National Kidney Disease Education Program and the [facility] Kidney Foundation literature.Reference ranges:60 or greater: Dmkwqi95-07 ( for 3 consecutive months): Chronic kidney disease 15 or less: Kidney failureBaptist Medical CenterGlucose Vjbhw2676-90-17 07:00:00* Test Item Value Reference Range Interpretation Comments Glucose Level (test code = YIL8405) 130 74-118 H [facility] CenterCalcium Graqt2964-39-16 07:00:00* Test Item Value Reference Range Interpretation Comments Calcium Level (test code = 33401-4) 7.2 8.4-10.2 L [facility] CenterPhosphorus Egake5931-28-65 07:00:00* Test Item Value Reference Range Interpretation Comments Phosphorus Level (test code = SND1210) 5.1 2.3-4.7 H [facility] CenterMagnesium Ilqei0613-25-53 07:00:00* Test Item Value Reference Range Interpretation Comments Magnesium Level (test code = 28887-2) 1.7 1.3-2.1 [facility] CenterPhosphorus Axsnk5652-66-68 07:00:00* Test Item Value Reference Range Interpretation Comments Phosphorus Level (test code = VMS8765) 5.1 2.3-4.7 H [facility] CenterMagnesium Wiwaa5150-30-60 07:00:00* Test Item Value Reference Range Interpretation Comments Magnesium Level (test code = 13638-1) 1.7 1.3-2.1 [facility] CenterWhite Blood Laxsb2785-13-84 06:30:00* Test Item Value Reference Range Interpretation Comments White Blood Count (test code = 6690-2) 3.49 4.8-10.8 L [facility] CenterRed Blood Iwwgz2090-63-89 06:30:00* Test Item Value Reference Range Interpretation Comments Red Blood Count (test code = 789-8) 3.62 4.3-5.7 L [facility] CenterHemoglobin2020-04-08 06:30:00* Test Item Value Reference Range Interpretation Comments Hemoglobin (test code = 18958-7) 9.3 14.0-18.0 L [facility] CenterHematocrit2020-04-08 06:30:00* Test Item Value Reference Range Interpretation Comments Hematocrit (test code = 4544-3) 29.9 38.2-49.6 L [facility] CenterMean Corpuscular Qfijbs8831-06-18 06:30:00* Test Item Value Reference Range Interpretation Comments Mean Corpuscular Volume (test code = 787-2) 82.6 81-99 [facility] CenterMean Corpuscular Rcvianepem8473-50-83 06:30:00* Test Item Value Reference Range Interpretation Comments Mean Corpuscular Hemoglobin (test code = 785-6) 25.7 28-32 L [facility] CenterMean Corpuscular Hemoglobin Concent 2019-06-01 06:30:00* Test Item Value Reference Range Interpretation Comments Mean Corpuscular Hemoglobin Concent (test code = 786-4) 31.1 31-35 [facility] CenterRed Cell Distribution Zugmc1316-48-99 06:30:00* Test Item Value Reference Range Interpretation Comments Red Cell Distribution Width (test code = 86254-3) 15.4 11.7 -14.4 H [facility] CenterPlatelet Woxcv7906-83-91 06:30:00* Test Item Value Reference Range Interpretation Comments Platelet Count (test code = 777-3) 118 140-360 L [facility] CenterNeutrophils (%) (Auto)2019-06-01 06:30:00 * Test Item Value Reference Range Interpretation Comments Neutrophils (%) (Auto) (test code = 03978-3) 70.7 38.7-80.0 [facility] CenterLymphocytes (%) (Auto)2019-06-01 06:30:00 * Test Item Value Reference Range Interpretation Comments Lymphocytes (%) (Auto) (test code = 736-9) 14.6 18.0-39.1 L [facility] CenterMonocytes (%) (Auto)2019-06-01 06:30:00* Test Item Value Reference Range Interpretation Comments Monocytes (%) (Auto) (test code = 5905-5) 8.9 4.4-11.3 [facility] CenterEosinophils (%) (Auto)2019-06-01 06:30:00 * Test Item Value Reference Range Interpretation Comments Eosinophils (%) (Auto) (test code = 713-8) 4.0 0.0-6.0 [facility] CenterBasophils (%) (Auto)2019-06-01 06:30:00* Test Item Value Reference Range Interpretation Comments Basophils (%) (Auto) (test code = 706-2) 0.9 0.0-1.0 [facility] CenterIM GRANULOCYTES %2019-06-01 06:30:00* Test Item Value Reference Range Interpretation Comments IM GRANULOCYTES % (test code = IM GRANULOCYTES %) 0.9 0.0- 1.0 [facility] CenterNeutrophils # (Auto)2019-06-01 06:30:00* Test Item Value Reference Range Interpretation Comments Neutrophils # (Auto) (test code = 751-8) 2.5 2.1-6.9 [facility] CenterLymphocytes # (Auto)2019-06-01 06:30:00* Test Item Value Reference Range Interpretation Comments Lymphocytes # (Auto) (test code = 51525-6) 0.5 1.0-3.2 L [facility] CenterMonocytes # (Auto)2019-06-01 06:30:00* Test Item Value Reference Range Interpretation Comments Monocytes # (Auto) (test code = 742-7) 0.3 0.2-0.8 [facility] CenterEosinophils # (Auto)2019-06-01 06:30:00* Test Item Value Reference Range Interpretation Comments Eosinophils # (Auto) (test code = 711-2) 0.1 0.0-0.4 [facility] CenterBasophils # (Auto)2019-06-01 06:30:00* Test Item Value Reference Range Interpretation Comments Basophils # (Auto) (test code = 704-7) 0.0 0.0-0.1 [facility] CenterAbsolute Immature Granulocyte (auto 2019-06-01 06:30:00* Test Item Value Reference Range Interpretation Comments Absolute Immature Granulocyte (auto (shin t code = Absolute Immature Granulocyte (auto) 0.03 0-0.1 [facility] CenterPhosphorus umsrdsbgpxy6215-56-02 06:00:00 * Test Item Value Reference Range Interpretation Comments Phosphorus Level (test code = EMY5021) 5.1 2.3-4.7 [facility] CenterTotal Zbpbeschl2261-86-01 07:19:00* Test Item Value Reference Range Interpretation Comments Total Bilirubin (test code = 1975-2) 0.5 0.2-1.2 [facility] CenterAspartate Amino Transf (AST/SGOT) 2019-05-31 07:19:00* Test Item Value Reference Range Interpretation Comments Aspartate Amino Transf (AST/SGOT) (test code = Aspartate Amino Transf (AST/SGOT)) 182 5-34 H [facility] CenterAlanine Aminotransferase (ALT/SGPT) 2019-05-31 07:19:00* Test Item Value Reference Range Interpretation Comments Alanine Aminotransferase (ALT/SGPT) (test code = 1742-6) 121 0-55 H [facility] CenterTotal Jxhtoox9323-20-55 07:19:00* Test Item Value Reference Range Interpretation Comments Total Protein (test code = 2885-2) 7.2 6.5-8.1 [facility] CenterAlbumin2020-04-07 07:19:00* Test Item Value Reference Range Interpretation Comments Albumin (test code = 1751-7) 2.3 3.5-5.0 L [facility] CenterGlobulin2020-04-07 07:19:00* Test Item Value Reference Range Interpretation Comments Globulin (test code = 89594-4) 4.9 2.3-3.5 H [facility] CenterAlbumin/Globulin Ydcku7410-67-49 07:19:00 * Test Item Value Reference Range Interpretation Comments Albumin/Globulin Ratio (test code = 1759-0) 0.5 0.8-2.0 L [facility] CenterAlkaline Qguiysebmxg5880-01-36 07:19:00* Test Item Value Reference Range Interpretation Comments Alkaline Phosphatase (test code = 6768-6) 412 40-150 H [facility] CenterUrine OZS4738-99-91 02:21:00* Test Item Value Reference Range Interpretation Comments Urine WBC (test code = 5821-4) >50 0-5 H [facility] CenterUrine GPA3653-59-79 02:21:00* Test Item Value Reference Range Interpretation Comments Urine RBC (test code = 61826-0) 21-50 0-5 H [facility] CenterUrine Rwtntauh8665-03-27 02:21:00* Test Item Value Reference Range Interpretation Comments Urine Bacteria (test code = 78536-2) MANY NONE [facility] ChildrenUrine Epithelial Wqwii3469-27-73 02:21:00 * Test Item Value Reference Range Interpretation Comments Urine Epithelial Cells (test code = 57147-3) FEW NONE [facility] Ztpyb9271-88-27 02:21:00* Test Item Value Reference Range Interpretation Comments Urine Mucus (test code = 8247-9) FEW RARE H [facility] Yravx7292-64-37 02:21:00* Test Item Value Reference Range Interpretation Comments Urine Yeast (test code = 31754-7) MANY NONE [facility] Zxhew8952-86-98 02:21:00* Test Item Value Reference Range Interpretation Comments Urine Mucus (test code = 8247-9) FEW RARE H [facility] Jtpxl2730-22-58 02:21:00* Test Item Value Reference Range Interpretation Comments Urine Yeast (test code = 42059-0) MANY NONE [facility] Lkeeh2969-96-55 02:12:00* Test Item Value Reference Range Interpretation Comments Urine Color (test code = 5778-6) YELLOW YELLOW [facility] Irrrtpo0964-80-76 02:12:00* Test Item Value Reference Range Interpretation Comments Urine Clarity (test code = 38033-3) CLOUDY CLEAR H [facility] Specific Qyfgops5770-58-34 02:12:00 * Test Item Value Reference Range Interpretation Comments Urine Specific [place] (test code = 5811-5) 1.025 1.010-1.02 5 [facility] bH5757-27-31 02:12:00* Test Item Value Reference Range Interpretation Comments Urine pH (test code = 26978-1) 5.5 5-7 [facility] Leukocyte Zrxczqmm8311-97-52 02:12:00* Test Item Value Reference Range Interpretation Comments Urine Leukocyte Esterase (test code = 5799-2) 2+ NEGATIVE H [facility] Wkhnuif5863-91-63 02:12:00* Test Item Value Reference Range Interpretation Comments Urine Nitrite (test code = 75943-1) POSITIVE NEGATIVE H [facility] Qpxrxvk4199-33-50 02:12:00* Test Item Value Reference Range Interpretation Comments Urine Protein (test code = 5804-0) >=300 NEGATIVE [facility] Glucose (UA)2019-05-30 02:12:00* Test Item Value Reference Range Interpretation Comments Urine Glucose (UA) (test code = 2349-9) 1+ NEGATIVE H [facility] Vaeiaid7307-44-30 02:12:00* Test Item Value Reference Range Interpretation Comments Urine Ketones (test code = 61396-3) NEGATIVE NEGATIVE [facility] Ncknamuljchc3711-55-78 02:12:00* Test Item Value Reference Range Interpretation Comments Urine Urobilinogen (test code = 33105-1) 0.2 0.2-1 [facility] Swfsxpvpe5468-64-94 02:12:00* Test Item Value Reference Range Interpretation Comments Urine Bilirubin (test code = 1978-6) NEGATIVE NEGATIVE [facility] Ieiit4318-96-82 02:12:00* Test Item Value Reference Range Interpretation Comments Urine Blood (test code = 75845-5) 4+ NEGATIVE H [facility] CenterYeast detection in urine sediment by light ptvekaoguw4019-25-10 01:50:00* Test Item Value Reference Range Interpretation Comments Urine Yeast (test code = 29349-0) MANY NONE [facility]INGLE [facility]ABLE)2019-05-30 01:18:00 [facility] [address] [address] Patient Name: MANJIT LUO MR #: [id number] : 1980 Age/Sex: 38/M Req #: [id number] Adm Physician: Ordered by: MARIELLE MARSH MD Report #: [id number] Location: ER Room/Bed: Procedure: [id number] 0007 DX/CHEST SINGLE (PORTABLE) Exam Date: 05/30/19 Exam Time: 005 REPORT STATUS: Sign ed EXAMINATION: CHEST SINGLE (PORTABLE) COMPARISON: Chest x-ray 04/23 INDICATION: fever [id number] 0050 Y DISCUSSION: Frontal view of the [...] COPY TO: BAYRON MARSH MD Lactic Acid Ozstj0407-88-93 01:08:00* Test Item Value Reference Range Interpretation Comments Lactic Acid Level (test code = Lactic Acid Level) 1.0 0.5- 2.0 [facility] CenterL[facility] Acid Zpavm6749-96-70 01:08:00* Test Item Value Reference Range Interpretation Comments Lactic Acid Level (test code = Lactic Acid Level) 1.0 0.5- 2.0 [facility] CenterCT ABDOMEN/PELVIS SL0095-04-49 01:06:00 [facility] [address] [address] Patient Name: MANJIT LUO MR #: [id number] : 1980 Age/Sex: 38/M Req #: [id number] Adm Physician: Ordered by: MARIELLE MARSH MD Report #: [id number] Location: ER Room/Bed: Procedure: 0406- 0001 CT/CT ABDOMEN/PELVIS WO Exam Date: 05/30/19 Exa m Time: 49 REPORT STATUS: Signed CT Abdomen and Pelvis without contrast INDICATION: Right lower quadrant pain and fever, fever, right lower abd pain [id number] Y T ECHNIQUE: Thin collimation axial images [...] set by the Radiation Protocol Com mittee ([facility]). COMPARISON: Abdomen x-ray 05/20/2019. CT abdomen/pelvis 019 [...] MD Fluoroscopic procedure less than one hour rdnpztsp2893-51-78 00:23:00* Test Item Value Reference Range Interpretation Comments Lactic Acid Level (test code = Lactic Acid Level) 1.0 0.5- 2.0 [facility] Center[facility] class 1 & 2 gwzwfwal1431-78-48 15:06:51* Test Item Value Reference Range Interpretation Comments Case number (test code = 9201224) [id number] C1Q class 1 & 2 antibody (test code = 0126755) See emilee mckeon below for PDF Lab Report [facility] Zaufrvc1235-62-52 16:03:00* Test Item Value Reference Range Interpretation Comments Bedside Glucose (test code = 59342-1) 129 70-120 H Meter ID: [id number] [address] ([facility]) 2019-05-20 11:54:00 [facility] [address] [place] [address] Patient Name: MANJIT LUO MR #: [id number] : 1980 Age/Sex: 38/M Req #: [id number] Adm Physician: ABHIJIT YODER MD Ordered by: ABHIJIT YODER MD Report #: [id number] Location: MED/SURG2 Room/Bed: [facility] [place] Procedure: [id number] DX/AB DOMEN-1VIEW (KUB) Exam Date: 05/20/19 Exam Time: 105 [...] 11:57 AM Dictated By: KIM MENDEZ MD 4617 Transcribe d By: TIFFANY on 05/20/19 6720 COPY TO: ABHIJIT YODER MD Sodium Ygyft6034-87-87 05:37:00* Test Item Value Reference Range Interpretation Comments Sodium Level (test code = 2951-2) 137 136-145 [facility]Potassium Lbomm7038-59-63 05:37:00* Test Item Value Reference Range Interpretation Comments Potassium Level (test code = 2823-3) 4.7 3.5-5.1 [facility] CenterChloride Xbvoj9518-30-38 05:37:00* Test Item Value Reference Range Interpretation Comments Chloride Level (test code = 2075-0) 103 98-107 [facility] CenterCarbon Dioxide Yyldo7295-56-97 05:37:00* Test Item Value Reference Range Interpretation Comments Carbon Dioxide Level (test code = 2028-9) 27 22-29 [facility] CenterAnion Vrd9867-45-83 05:37:00* Test Item Value Reference Range Interpretation Comments Anion Gap (test code = 94075-7) 11.7 8-16 [facility] CenterBlood Urea Hyoamrlg7314-14-73 05:37:00* Test Item Value Reference Range Interpretation Comments Blood Urea Nitrogen (test code = 3094-0) 23 7-26 [facility] CenterCreatinine2020-03-26 05:37:00* Test Item Value Reference Range Interpretation Comments Creatinine (test code = 2160-0) 3.50 0.72-1.25 H [facility] CenterBUN/Creatinine Vspha7667-34-16 05:37:00* Test Item Value Reference Range Interpretation Comments BUN/Creatinine Ratio (test code = 3097-3) 7 08-17 [facility] CenterEstimat Glomerular Filtration Rate 2019-05-19 05:37:00* Test Item Value Reference Range Interpretation Comments Estimat Glomerular Filtration Rate (test code = 839801393) 20 >60 L Ranges were taken from the National Kidney Disease Education Program and the [facility] Kidney Foundation literature.Reference ranges:60 or greater: Rxbyvw91-37 ( for 3 consecutive months): Chronic kidney disease 15 or less: Kidney failureBaptist Medical CenterGlucose Uitar3663-57-26 05:37:00* Test Item Value Reference Range Interpretation Comments Glucose Level (test code = GXB6402) 130 74-118 H [facility] CenterCalcium Gtigq0956-38-28 05:37:00* Test Item Value Reference Range Interpretation Comments Calcium Level (test code = 71313-6) 8.2 8.4-10.2 L [facility] CenterWhite Blood Llnfu1148-35-83 09:35:00* Test Item Value Reference Range Interpretation Comments White Blood Count (test code = 6690-2) 4.21 4.8-10.8 L [facility] CenterRed Blood Uvuev9495-97-84 09:35:00* Test Item Value Reference Range Interpretation Comments Red Blood Count (test code = 789-8) 3.61 4.3-5.7 L [facility] CenterHemoglobin2020-03-25 09:35:00* Test Item Value Reference Range Interpretation Comments Hemoglobin (test code = 42708-3) 9.3 14.0-18.0 L [facility] CenterHematocrit2020-03-25 09:35:00* Test Item Value Reference Range Interpretation Comments Hematocrit (test code = 4544-3) 30.1 38.2-49.6 L [facility] CenterMean Corpuscular Ffktum2422-75-76 09:35:00* Test Item Value Reference Range Interpretation Comments Mean Corpuscular Volume (test code = 787-2) 83.4 81-99 [facility] CenterMean Corpuscular Hqcccatadn9038-81-58 09:35:00* Test Item Value Reference Range Interpretation Comments Mean Corpuscular Hemoglobin (test code = 785-6) 25.8 28-32 L [facility] CenterMean Corpuscular Hemoglobin Concent 2019-05-18 09:35:00* Test Item Value Reference Range Interpretation Comments Mean Corpuscular Hemoglobin Concent (test code = 786-4) 30.9 31-35 L [facility] CenterRed Cell Distribution Rgquf1137-19-86 09:35:00* Test Item Value Reference Range Interpretation Comments Red Cell Distribution Width (test code = 94242-9) 14.6 11.7 -14.4 H [facility] CenterPlatelet Soyxl1877-76-03 09:35:00* Test Item Value Reference Range Interpretation Comments Platelet Count (test code = 777-3) 133 140-360 L [facility] CenterNeutrophils (%) (Auto)2019-05-18 09:35:00 * Test Item Value Reference Range Interpretation Comments Neutrophils (%) (Auto) (test code = 67600-1) 59.3 38.7-80.0 [facility] CenterLymphocytes (%) (Auto)2019-05-18 09:35:00 * Test Item Value Reference Range Interpretation Comments Lymphocytes (%) (Auto) (test code = 736-9) 29.5 18.0-39.1 [facility] CenterMonocytes (%) (Auto)2019-05-18 09:35:00* Test Item Value Reference Range Interpretation Comments Monocytes (%) (Auto) (test code = 5905-5) 5.7 4.4-11.3 [facility] CenterEosinophils (%) (Auto)2019-05-18 09:35:00 * Test Item Value Reference Range Interpretation Comments Eosinophils (%) (Auto) (test code = 713-8) 4.5 0.0-6.0 [facility] CenterBasophils (%) (Auto)2019-05-18 09:35:00* Test Item Value Reference Range Interpretation Comments Basophils (%) (Auto) (test code = 706-2) 0.5 0.0-1.0 [facility] CenterIM GRANULOCYTES %2019-05-18 09:35:00* Test Item Value Reference Range Interpretation Comments IM GRANULOCYTES % (test code = IM GRANULOCYTES %) 0.5 0.0- 1.0 [facility] CenterNeutrophils # (Auto)2019-05-18 09:35:00* Test Item Value Reference Range Interpretation Comments Neutrophils # (Auto) (test code = 751-8) 2.5 2.1-6.9 [facility] CenterLymphocytes # (Auto)2019-05-18 09:35:00* Test Item Value Reference Range Interpretation Comments Lymphocytes # (Auto) (test code = 74025-7) 1.2 1.0-3.2 [facility] CenterMonocytes # (Auto)2019-05-18 09:35:00* Test Item Value Reference Range Interpretation Comments Monocytes # (Auto) (test code = 742-7) 0.2 0.2-0.8 [facility] CenterEosinophils # (Auto)2019-05-18 09:35:00* Test Item Value Reference Range Interpretation Comments Eosinophils # (Auto) (test code = 711-2) 0.2 0.0-0.4 [facility] CenterBasophils # (Auto)2019-05-18 09:35:00* Test Item Value Reference Range Interpretation Comments Basophils # (Auto) (test code = 704-7) 0.0 0.0-0.1 [facility] CenterAbsolute Immature Granulocyte (auto 2019-05-18 09:35:00* Test Item Value Reference Range Interpretation Comments Absolute Immature Granulocyte (auto (shin t code = Absolute Immature Granulocyte (auto) 0.02 0-0.1 [facility] antigen suudm6585-58-98 09:20:50* Test Item Value Reference Range Interpretation Comments SAB interpretation (test code = 5950) Additional antib tripp information: DP1=DPB1*01:01/DPA1*02:41FN5=BAZ7*05:01/DPA1*02:65SU1=CCU8*03:03/DQA1*02:01DR53= is a self-antigen SAB serum ID (test code = 5866) [id number] SAB serum collection D&T (test code = 5867) 05/03/2019 08:30 AM SAB class I antibody assignment (test code = 5870) Negative SAB cPRA class I (test code = 5868) 0 SAB class II antibody assignment (test code = 5871) DP1,DR10 ,DP5,DR53,DR51,DQ9 SAB cPRA class II (test code = 5869) 74 Case number (test code = 4969904) [id number] Single antigen beads (test code = 4604) See link below for PDF Lab Report [facility] Bwgdram1250-66-85 08:02:00* Test Item Value Reference Range Interpretation Comments Urine Culture (test code = 630-4) No Result Data Provided [facility] CenterUrine Fakgpjh4896-72-54 08:02:00* Test Item Value Reference Range Interpretation Comments Urine Culture (test code = 630-4) No Result Data Provided [facility] CenterUrine Vqlfyho2472-65-50 08:02:00* Test Item Value Reference Range Interpretation Comments Urine Culture (test code = 630-4) No Result Data Provided [address] [address]VIEW (KUB)2019-05-16 13:43:00 [facility] [address] [address] Patient Name: MANJIT LUO MR #: [id number] : 1980 Age/Sex: 38/M Req #: [id number] Adm Physician: ABHIJIT YODER MD Ordered by: FAIZA DOWNEY Report #: [id number] Location: MED/SURG2 Room/Bed: 210-1 Procedure: [id number] DX/ABDOMEN-1VIEW (KUB) Exam Date: 05/16/19 Exam Cm e: 1325 [...] 134 5 COPY TO: FAIZA DOWNEY IR LQINSCP9689-97-76 13:41:00 [address] [address] Patient Name: MANJIT LUO MR #: [id number] : 1980 Age/Sex: 38/M Req #: [id number] Adm Physician: ABHIJIT YODER MD Ordered by: FAIZA DOWNEY Report #: [id number] Location: MED/SURG2 Room/Bed: 210 Procedure: [id number] DX/IR CONSULT Exam Date: Exam Time: REPORT STATUS: Signed Tunneled dialysis alonso ter insertion, 05/16/2019. History: Renal failure. Modality: Sonography and fluoroscopy. Sedation: Genny sed 1.0 mg and fentanyl 50 mcg was given intravenously for conscious sedation. Vital signs were monitored throughout the procedure by a nurse, and remained stable. Physician intra-service time was 15 its. Strap Buckler: Saloni. Control Systems Developer: None. Approach: Right internal jugular vein Estimated [...] needle into the right atrium. A 4 [place] micropuncture sheath was placed. A subcutaneous tunnel was created in the right anterior chest wall by blunt dissection. A 19 cm 14.5 [place] dialysis catheter was brought through the tunnel. [...] TO: FAIZA DOWNEY US GUIDANCE FOR VASCULAR QJPJR4699-22-86 13:41:[address] [address] Patient Name: MANJIT LUO MR #: [id number] : 1980 Age/Sex: 38/M Req #: [id number] Adm Physician: ABHIJIT YODER MD Ordered by: FAIZA DOWNEY Report #: [id number] [facility]: [facility] Room/Bed: [facility] [place] Procedure: [id number] US/US GUIDANCE FOR VASCULAR ACCES Exam Date: 05/16/19 Exam Time: 1225 REPORT STATUS: S igned Tunneled dialysis catheter insertion, 05/16/2019. History: Renal failure. Modality: Sonography and fluoroscopy. Sedation: Versed 1.0 mg and fentanyl 50 mcg was given intravenously for conscious sedation. Vital signs were monitored throughout the procedure by a nurse, and remained stable. Physician intra-service time was 15 its. Strap Buckler: Saloni. Control Systems Developer: None. Approach: Right internal jugular vein Estimated [...] into t he right atrium. A 4 [place] micropuncture sheath was placed. A subcutaneous t unnel was created in the right anterior chest wall by blunt dissection. A 19 cm 14.5 [place] dialysis catheter was brought through the tunnel. [...] 1:43 PM Dictated By: RONNIE VERDE MD 1341 Transcr ibed By: TIFFANY on 05/16/19 1345 COPY TO: FAIZA DOWNEY TUNNELLED CVC INSERT W/O IYES4064-54-24 13:41:00 [address] [address] Patient Name: MANJIT LUO MR #: [id number] : 1980 Age/Sex: 38/M Req #: [id number] [facility] Physician: ABHIJIT YODER MD Ordered by: FAIZA DOWNEY Report #: [id number] Location: MED/SURG2 Room/Bed: [facility] [place] Procedure: [id number] IR/TUNNELLED CVC INSERT W/O PORT Exam Date: Exam T sage: REPORT STATUS: Signed Tunn eled dialysis catheter insertion, 05/16/2019. History: Renal failure. Modality: Sonography and fluoroscopy. Sedation: Versed 1.0 mg and fentanyl 50 mcg was given intravenously for conscious sedation. Vital signs were monitored throughout the procedure by a nurse, and remained stable. Physician intra-service time was 15 its. Strap Buckler: Saloni. Control Systems Developer: None. Approach: Right internal jugular vein Estimated [...] into t he right atrium. A 4 [place] micropuncture sheath was placed. A subcutaneous t unnel was created in the right anterior chest wall by blunt dissection. A 19 cm 14.5 [place] dialysis catheter was brought through the tunnel. [...] 1:43 PM Dictated By: RONNIE VERDE MD 134 Transcr ibed By: TIFFANY on 05/16/19 1343 COPY TO: FAIZA DOWNEY Prothrombin Gfav3834-77-90 10:37:00* Test Item Value Reference Range Interpretation Comments Prothrombin Time (test code = 5902-2) 16.2 11.9-14.5 H [facility] CenterProthromb Time International Ratio 2019-05-16 10:37:00* Test Item Value Reference Range Interpretation Comments Prothromb Time International Ratio (test code = 6301-6) 1.22 Oral Anticoagulant Therapy INR Values:1. Low Intensity Therapy 1.5 - 2.02 . Moderate Intensity Therapy 2.0 - 3.03. High Intensity Therapy(1) 2.5 - 3. 54. High Intensity Therapy(2) 3.0 - 4.05. Panic Value INR > 5.0 [facility] CenterTotal Bntobstea6881-92-29 08:57:00* Test Item Value Reference Range Interpretation Comments Total Bilirubin (test code = 1975-2) 0.2 0.2-1.2 [facility] CenterDirect Hkcmpprhd8473-27-56 08:57:00* Test Item Value Reference Range Interpretation Comments Direct Bilirubin (test code = 17517-2) 0.1 0.0-0.5 [facility] CenterAspartate Amino Transf (AST/SGOT) 2019-05-16 08:57:00* Test Item Value Reference Range Interpretation Comments Aspartate Amino Transf (AST/SGOT) (test code = Aspartate Amino Transf (AST/SGOT)) 40 5-34 H [facility] CenterAlanine Aminotransferase (ALT/SGPT) 2019-05-16 08:57:00* Test Item Value Reference Range Interpretation Comments Alanine Aminotransferase (ALT/SGPT) (test code = 1742-6) 47 0-55 [facility] CenterTotal Rnccqow2486-78-08 08:57:00* Test Item Value Reference Range Interpretation Comments Total Protein (test code = 2885-2) 8.5 6.5-8.1 H [facility] CenterAlbumin2020-03-23 08:57:00* Test Item Value Reference Range Interpretation Comments Albumin (test code = 1751-7) 2.5 3.5-5.0 L [facility] CenterAlkaline Wqorkjwjkwj1074-00-97 08:57:00* Test Item Value Reference Range Interpretation Comments Alkaline Phosphatase (test code = 6768-6) 437 40-150 H [facility] CenterDirect Aiieazvwy4147-68-72 08:57:00* Test Item Value Reference Range Interpretation Comments Direct Bilirubin (test code = 07349-3) 0.1 0.0-0.5 [facility]Direct Jymqiamzh7950-47-69 08:57:00* Test Item Value Reference Range Interpretation Comments Direct Bilirubin (test code = 94124-2) 0.1 0.0-0.5 [facility] or plasma conjugated bilirubin measurement (mass/volume)2019-05-16 05:00:00* Test Item Value Reference Range Interpretation Comments Direct Bilirubin (test code = 03933-2) 0.1 0.0-0.5 [facility] CenterMiscellaneous referral pppm9388-83-13 12:16:23* Test Item Value Reference Range Interpretation Comments [facility] test name (test code = 2566) PTNT [facility] test result (test code = 1730) SEE NOTE Report Status: FINAL Prothrombin Z20729I Mutation, B PTNT Interpretation This individual DOES NOT have the Prothrombin N18957O mutation. Although the Prothrombin J84046G mutation is absent, the individual may have other genetic and environmental risk factors for thrombosis. Consider genetic consultation and counseling of potentially affected family members regarding laboratory testing. ADDITIONAL INFORMATION This test is a direct mutation analysis using PCR amplification, signal generation and release by cleavage of sequence specific alleles ([employer], [place], [place], [place])............... ..............................................Prothrombin R76234I Mutation, B Negative Reference Value: Negative............................................................PTNT Reviewed By DARYRL Oneil - - - - - - - - - - - - - - - - - - - - - - - - - - - - - -Laboratory Notes:This test has been modified from the landscape gardener'sinstructions. Its performance characteristics weredetermined by [facility] in a manner consistent with CLIArequirements. This test has not been cleared or approved bythe U.S. Food and Drug Administration.+ +: PERFORMING SITE LEGEND :+ +: : [facility] :: : [address] [place] [address] :+ + IGNACIO (test code = IGNACIO) Prothrombin L78639F Mutation [facility] Test ID: PTNTSource: Whole Blood [facility]Hepatitis B Surface Antibody, Grmwf7464-62-61 08:00:00* Test Item Value Reference Range Interpretation Comments Hepatitis B Surface Antibody, Quant (test code = 5194-6) <3.1 Immunity>9.9 L Status of Immunity Anti-HBs Level Inconsistent with Immunity 0.0 - 9.9Consistent with Immunity >9.9[facility] B Surface Tkrxuyj2558-90-42 08:00:00* Test Item Value Reference Range Interpretation Comments Hepatitis B Surface Antigen (test code = 5196-1) Negative Negat stuart GUNTER [facility] B Core IgM Jkuciwfb6385-72-42 08:00:00* Test Item Value Reference Range Interpretation Comments Hepatitis B Core IgM Antibody (test code = 88130-1) Negative Ne gative Performed at: [address] [id number] Director: Doc Bartlett MD, Phone: [phone] Saint [facility] B Surface Antibody, Posjn6342-90-09 08:00:00* Test Item Value Reference Range Interpretation Comments Hepatitis B Surface Antibody, Quant (test code = 5194-6) <3.1 Immunity>9.9 L Status of Immunity Anti-HBs Level Inconsistent with Immunity 0.0 - 9.9Consistent with Immunity >9.9[facility] B Core IgM Cqlurfyo6579-98-98 08:00:00* Test Item Value Reference Range Interpretation Comments Hepatitis B Core IgM Antibody (test code = 65520-5) Negative Ne gative Performed at: [address] [id number] Director: Doc Bartlett MD, Phone: [phone] Medical CenterHeadventist health [facility] B Surface Antibody, Iyfke5504-77-97 08:00:00* Test Item Value Reference Range Interpretation Comments Hepatitis B Surface Antibody, Quant (test code = 5194-6) <3.1 Immunity>9.9 L Status of Immunity Anti-HBs Level Inconsistent with Immunity 0.0 - 9.9Consistent with Immunity >9.9[facility] B Core IgM Dkdayqrf1170-34-13 08:00:00* Test Item Value Reference Range Interpretation Comments Hepatitis B Core IgM Antibody (test code = 39685-6) Negative Ne gative Performed at: [address] [id number] Director: Doc Bartlett MD, Phone: [phone] [place] [address] hepatitis B virus surface antibody assay by radioimmunoassay (units/volume)2019-05-12 17:30:00* Test Item Value Reference Range Interpretation Comments Hepatitis B Surface Antibody, Quant (test code = 5194-6) <3.1 Immunity>9.9 Status of Immunity Anti-HBs Level Inconsistent with Immunity 0.0 - 9.9Consistent with Immunity >9.9[facility] Hospitalerum or plasma hepatitis B virus core IgM antibody detection by ykddgpscfwl4177-90-15 17:30:00* Test Item Value Reference Range Interpretation Comments Hepatitis B Core IgM Antibody (test code = 60072-8) Negative Ne gative Performed at: [facility] [id number] Director: Doc Bartlett MD, Phone: [phone] Medical CenterGlobulin2020-03-19 05:45:00* Test Item Value Reference Range Interpretation Comments Globulin (test code = 72223-5) 5.5 2.3-3.5 H [facility] CenterAlbumin/Globulin Csrqi1017-22-77 05:45:00 * Test Item Value Reference Range Interpretation Comments Albumin/Globulin Ratio (test code = 1759-0) 0.4 0.8-2.0 L [facility] CenterBlood Qdedjkj6146-35-80 19:22:00* Test Item Value Reference Range Interpretation Comments Blood Culture (test code = 56958070) NO GROWTH AFTER 5 DAYS, FINAL REPORT [facility] full typing by [facility]SO 2019-05-11 10:19:06* Test Item Value Reference Range Interpretation Comments Interpretation (test code = 9410899) Note: HLA typing was performed by PCR-SSO DNA based procedures.Note: The serological phenotype is an interpretation based on molecular typing data. Case number (test code = 1307536) [id number] Low resolution full typing by SSO (test code = 1359) S ee link below for PDF Lab Report [facility] HbuejrmxzExbwkraw3604-78-90 06:07:00* Test Item Value Reference Range Interpretation Comments Ferritin (test code = 2276-4) 313.92 21.81-274.66 H [facility] 06:07:00* Test Item Value Reference Range Interpretation Comments Ferritin (test code = 2276-4) 313.92 21.81-274.66 H [facility]2020-[facility]-18 06:07:00* Test Item Value Reference Range Interpretation Comments Ferritin (test code = 2276-4) 313.92 21.81-274.66 H [facility] CenterPhosphorus Qrdyy1311-07-66 05:50:00* Test Item Value Reference Range Interpretation Comments Phosphorus Level (test code = LET6370) 6.2 2.3-4.7 H [facility]2020-03-18 05:50:00* Test Item Value Reference Range Interpretation Comments Iron Level (test code = 2498-4) 38 65-175 L [facility]Total Iron Binding Zkzqsagb4625-85-78 05:50:00* Test Item Value Reference Range Interpretation Comments Total Iron Binding Capacity (test code = 2500-7) 165 261-4 78 L [facility] CenterPercent Iron Ierpgxsbak1533-83-16 05:50:00* Test Item Value Reference Range Interpretation Comments Percent Iron Saturation (test code = 2502-3) 23 15-50 [facility] CenterTransferrin2020-[facility]-18 05:50:00* Test Item Value Reference Range Interpretation Comments Transferrin (test code = 3034-6) 118 174-364 L [facility]2020-03-18 05:50:00* Test Item Value Reference Range Interpretation Comments Iron Level (test code = 2498-4) 38 65-175 L [facility] CenterTotal Iron Binding Sxcrkwua7011-58-11 05:50:00* Test Item Value Reference Range Interpretation Comments Total Iron Binding Capacity (test code = 2500-7) 165 261-4 78 L [facility] CenterPercent Iron Tstphebxsc8047-54-70 05:50:00* Test Item Value Reference Range Interpretation Comments Percent Iron Saturation (test code = 2502-3) 23 15-50 [facility] CenterTransferrin2020-03-18 05:50:00* Test Item Value Reference Range Interpretation Comments Transferrin (test code = 3034-6) 118 174-364 L [facility] CenterIron Dtzfc3948-49-12 05:50:00* Test Item Value Reference Range Interpretation Comments Iron Level (test code = 2498-4) 38 65-175 L [facility] CenterTotal Iron Binding Fvogwdvj5113-99-41 05:50:00* Test Item Value Reference Range Interpretation Comments Total Iron Binding Capacity (test code = 2500-7) 165 261-4 78 L [facility]Percent Iron Mmveyflksx6854-07-25 05:50:00* Test Item Value Reference Range Interpretation Comments Percent Iron Saturation (test code = 2502-3) [facility] CenterTransferrin2020-03-18 05:50:00* Test Item Value Reference Range Interpretation Comments Transferrin (test code = 3034-6) 118 174-364 L [facility] iron measurement (mass/volume)2019-05-11 04:50:00* Test Item Value Reference Range Interpretation Comments Iron Level (test code = 2498-4) 38 65-175 [facility] plasma iron binding capacity measurement (mass/volume)2019-05-11 04:50:00* Test Item Value Reference Range Interpretation Comments Total Iron Binding Capacity (test code = 2500-7) 165 261-4 78 [facility] plasma iron saturation measurement (mass fraction)2019-05-11 04:50:00* Test Item Value Reference Range Interpretation Comments Percent Iron Saturation (test code = 2502-3) 50 [facility] or plasma transferrin measurement (mass/volume)2019-05-11 04:50:00* Test Item Value Reference Range Interpretation Comments Transferrin (test code = 3034-6) 118 174-364 [facility] or plasma ferritin measurement (mass/volume)2019-05-11 04:50:00* Test Item Value Reference Range Interpretation Comments Ferritin (test code = 2276-4) 313.92 21.81-274.66 [facility] CenterBacterial urine zpdeduo5661-50-43 15:50:00* Test Item Value Reference Range Interpretation Comments Urine Culture (test code = 630-4) YEAST SPECIES [facility] CenterUrine Baadhvf1924-18-03 07:34:00* Test Item Value Reference Range Interpretation Comments Urine Culture (test code = 630-4) No Result Data Provided [facility] CenterHemoglobin A1c Izdleeh1104-95-53 20:19:00 * Test Item Value Reference Range Interpretation Comments Hemoglobin A1c Percent (test code = Hemoglobin A1c Percent) 5.2 4.0-7.0 [facility] CenterHemoglobin A1c Ijirrjp8973-60-86 20:19:00 * Test Item Value Reference Range Interpretation Comments Hemoglobin A1c Percent (test code = Hemoglobin A1c Percent) 5.2 4.0-7.0 [facility] CenterHemoglobin A1c Mikgwov8710-66-47 20:19:00 * Test Item Value Reference Range Interpretation Comments Hemoglobin A1c Percent (test code = Hemoglobin A1c Percent) 5.2 4.0-7.0 [facility] CenterFr Uvqhtqwnb2976-79-84 19:42:00* Test Item Value Reference Range Interpretation Comments Free Thyroxine (test code = 3024-7) 0.79 0.8-1.8 L [facility] CenterThyroid Stimulating Hormone (TSH) 2019-05-08 19:42:00* Test Item Value Reference Range Interpretation Comments Thyroid Stimulating Hormone (TSH) (test code = 45953-4) 1.669 0.350-4.940 [facility] Rotmwumrg5822-23-62 19:42:00* Test Item Value Reference Range Interpretation Comments Free Thyroxine (test code = 3024-7) 0.79 0.8-1.8 L [facility] CenterThyroid Stimulating Hormone (TSH) 2019-05-08 19:42:00* Test Item Value Reference Range Interpretation Comments Thyroid Stimulating Hormone (TSH) (test code = 91055-0) 1.669 0.350-4.940 [facility] Zclgwxexr9441-82-62 19:42:00* Test Item Value Reference Range Interpretation Comments Free Thyroxine (test code = 3024-7) 0.79 0.8-1.8 L [facility] CenterThyroid Stimulating Hormone (TSH) 2019-05-08 19:42:00* Test Item Value Reference Range Interpretation Comments Thyroid Stimulating Hormone (TSH) (test code = 34783-5) 1.669 0.350-4.940 [facility] CenterFluoroscopic procedure less than one hour ihineatz3416-60-08 18:10:00* Test Item Value Reference Range Interpretation Comments Hemoglobin A1c Percent (test code = Hemoglobin A1c Percent) 5.2 4.0-7.0 [facility] or plasma thyroxine (T4) free measurement (mass/volume)2019-05-08 18:10:00* Test Item Value Reference Range Interpretation Comments Free Thyroxine (test code = 3024-7) 0.79 0.8-1.8 [facility] or plasma thyrotropin measurement by detection limit <= 0.005 miu/l (units/volume)2019-05-08 18:10:00* Test Item Value Reference Range Interpretation Comments Thyroid Stimulating Hormone (TSH) (test code = 64071-1) 1.669 0.350-4.940 [facility] CenterUrine NWN7536-22-16 20:28:00* Test Item Value Reference Range Interpretation Comments Urine WBC (test code = 5821-4) 11-20 0-5 H [facility] CenterU[facility] YLS9072-49-61 20:28:00* Test Item Value Reference Range Interpretation Comments Urine RBC (test code = 79142-8) 6-10 0-5 H [facility] CenterU[facility] Mknuwwtk1470-67-78 20:28:00* Test Item Value Reference Range Interpretation Comments Urine Bacteria (test code = 01085-8) MANY NONE H [facility] CenterUrine Epithelial Taubg1987-03-44 20:28:00 * Test Item Value Reference Range Interpretation Comments Urine Epithelial Cells (test code = 24768-6) RARE NONE [facility] CenterU[facility] Hvkqc0070-73-85 20:12:00* Test Item Value Reference Range Interpretation Comments Urine Color (test code = 5778-6) YELLOW YELLOW [facility] CenterU[facility] Hzctoln3287-25-36 20:12:00* Test Item Value Reference Range Interpretation Comments Urine Clarity (test code = 92059-6) CLOUDY CLEAR H [facility] CenterUrine Specific Hngixbx6432-60-05 20:12:00 * Test Item Value Reference Range Interpretation Comments Urine Specific [place] (test code = 5811-5) 1.020 1.010-1.02 5 [facility] CenterU[facility] eU4396-36-64 20:12:00* Test Item Value Reference Range Interpretation Comments Urine pH (test code = 08763-6) 5.5 5-7 [facility] Leukocyte Xfxfbtld3719-64-32 20:12:00* Test Item Value Reference Range Interpretation Comments Urine Leukocyte Esterase (test code = 5799-2) LARGE NEGATIVE [facility] Hodqner9700-07-06 20:12:00* Test Item Value Reference Range Interpretation Comments Urine Nitrite (test code = 02972-2) POSITIVE NEGATIVE H [facility] Dmfesap4862-09-96 20:12:00* Test Item Value Reference Range Interpretation Comments Urine Protein (test code = 5804-0) >=300 NEGATIVE [facility] Glucose (UA)2019-05-06 20:12:00* Test Item Value Reference Range Interpretation Comments Urine Glucose (UA) (test code = 2349-9) 1+ NEGATIVE H [facility] Wkriqdy3490-96-88 20:12:00* Test Item Value Reference Range Interpretation Comments Urine Ketones (test code = 22811-7) NEGATIVE NEGATIVE [facility] Ycuavavgdiss6709-23-02 20:12:00* Test Item Value Reference Range Interpretation Comments Urine Urobilinogen (test code = 88767-1) 0.2 0.2-1 [facility] CenterU[facility] Fxptwosvr1319-89-06 20:12:00* Test Item Value Reference Range Interpretation Comments Urine Bilirubin (test code = 1978-6) NEGATIVE NEGATIVE [facility] CenterU[facility] Inhla1955-92-57 20:12:00* Test Item Value Reference Range Interpretation Comments Urine Blood (test code = 43396-9) MODERATE NEGATIVE [facility] CenterInfluenza Virus Types A,B Antigen 2019-05-06 19:44:00* Test Item Value Reference Range Interpretation Comments Influenza Virus Types A,B Antigen (test code = 28247-0) NEGATIVE NEGATIVE [facility] CenterInfluenza Virus Types A,B Antigen 2019-05-06 19:44:00* Test Item Value Reference Range Interpretation Comments Influenza Virus Types A,B Antigen (test code = 23834-1) NEGATIVE NEGATIVE [facility] CenterInfluenza Virus Types A,B Antigen 2019-05-06 19:44:00* Test Item Value Reference Range Interpretation Comments Influenza Virus Types A,B Antigen (test code = 81491-7) NEGATIVE NEGATIVE [facility] CenterLactic Acid Mwexk6848-70-17 19:41:00* Test Item Value Reference Range Interpretation Comments Lactic Acid Level (test code = Lactic Acid Level) 0.8 0.5- 2.0 [facility] CenterCHEST 2 RNOSB4886-30-24 19:37:00 [facility] [address] [place] [address] Patient Name: MANJIT LUO MR #: [id number] : 1980 Age/Sex: 38/M Req #: [id number] Adm Physician: Ordered by: JC CATES [employer] Report #: [id number] Location: ER Room/Bed: Procedure: [id number] DX/CHEST 2 VIEWS Exam Date: Exam Time: [...] on 05/06/191937 CO PY TO: JC CATES NP Group A Streptococcus Pcnyty3823-53-59 19:35:00* Test Item Value Reference Range Interpretation Comments Group A Streptococcus Screen (test code = 22659-2) NEGATIVE [facility]Group A Streptococcus Mnjsva4067-15-59 19:35:00* Test Item Value Reference Range Interpretation Comments Group A Streptococcus Screen (test code = 51026-0) NEGATIVE NEG ATIVE [facility] CenterGroup A Streptococcus Yjfbal8829-58-99 19:35:00* Test Item Value Reference Range Interpretation Comments Group A Streptococcus Screen (test code = 42264-1) NEGATIVE NEG [facility] HospitalInfluenza virus A and B antigen identification by fjujprdqsndnahruhj3950-75-27 19:03:00* Test Item Value Reference Range Interpretation Comments Influenza Virus Types A,B Antigen (test code = 93128-5) NEGATIVE NEGATIVE [facility] pyogenes antigen detection in wyseed7054-39-54 19:03:00* Test Item Value Reference Range Interpretation Comments Group A Streptococcus Screen (test code = 55455-5) NEGATIVE NEG [facility] HospitalFunctional protein C4949-71-23 15:25:13* Test Item Value Reference Range Interpretation Comments Functional protein C (test code = 88021-3) 56 % 70-165 L Low Protein C Activity and prolonged Prothrombin time consistent with vitamin K deficiency, warfarin therapy or liver disease. Recommend repeating Protein C when PT is normal.Reviewed by Huan Keita MD, PhD. Lab Interpretation (test code = 64740-0) Abnormal [facility] HospitalFunctional protein C5984-10-03 10:14:15* Test Item Value Reference Range Interpretation Comments Functional protein S (test code = 66823-4) 91 % 74-160 Functional Protein S performed. If result is decreased Total and Free Protein S Antigen will be performed. [facility] HospitalLupus anticoagulant hgqaq8377-61-36 09:56:20* Test Item Value Reference Range Interpretation Comments Prothrombin time (test code = 5902-2) 15.9 11.5- 14.5 sec H INR (test code = 95069-5) 1.3 Th e International Normalized Ratio (INR) is a therapeutic monitoring tool for patients who are stable on oral anticoagulant therapy. An INR of 2.0-3.0 is suggested for deep vein thrombosis/pulmonary embolism. PTT (test code = 57452-9) 34.0 23.0- 36.0 sec PTT therapeutic range for unfractionated heparin is61.0-112.0 seconds which corresponds to Anti-Xa0.3-0.7 U/ml. PTT lupus anticoagulant (test code = 95852-1) 36.1 27.0- 38 .0 sec Lupus anticoagulant [...] instructions. The performance characteristics were determined by [facility] in a manner consistent with CLIA requirements. This test has not been cleared or approved by the U.S. Food and Drug Administration. Lab Interpretation (test code = 99186-8) Abnormal [facility] HospitalTB Q-DDSS8380-14QMRY4932-81-15 14:35:16* Test Item Value Reference Range Interpretation [...] NOT RECOMMENDED FOR USE WITH T=SPOT.TB TEST.Performed by:[facility] Molecular Tuberculosis Laboratory [facility] ([id number] [id number])[place], [place] [address] [facility] HospitalV type 1/2 combined Ab, NyW0282-48-56 13:16:14* Test Item Value Reference Range Interpretation Comments HSV 1/2 combined Ab, IgM (test code = 18534-0) 0.71 <=0.89 IV INTERPRETIVE INFORMATION: Herpes Simplex [...] for more than 12 months post-infection.Performed by [employer],[address] [place] [address] ebr.[employer], Trung Boyer MD, Lab. Director [facility] HospitalCytomegalovirus Ab, UwB5246-25-74 21:16:52* Test Item Value Reference Range Interpretation Comments Cytomegalovirus Ab, IgM (test code = 2636163) Negative Negative [facility] autologous jkkglolofi0888-06-18 20:52:48* Test Item Value Reference Range Interpretation Comments AXL source (test code = 5891) Peripheral Blood [facility] current serum ID (test code = 5892) [id number] [facility] serum collection D&T (test code = 5893) 05/03/2019 08:30 AM [facility] flow XM T cell result, current (test code = 5894) Negative [facility] flow XM B cell result, current (test code = 5895) Negative Case number (test code = 6467812) [id number] HLA autologous crossmatch (test code = 1090) See link below for PDF Lab Report Alejandro CunninghamistHomocystine, cjlati8106-42-98 12:03:28* Test Item Value Reference Range Interpretation Comments Homocysteine (test code = 79551-2) 17.5 umol/L 0-15 H The risk for coronary vascular disease increases progressively with homocysteine concentration. A 3.4 times greater risk is associated with a homocysteine concentration of greater than 15.8 umol/L as compared to a concentration below 14.1 umol/L. Lab Interpretation (test code = 85371-5) Abnormal [facility] MethodistHSV 1 & 2 glycoprotein G Ab, JrB2825-77-75 11:09:49* Test Item Value Reference Range Interpretation Comments HSV 1 glycoprotein G Ab, IgG (test code = 72961-7) Negative Neg ative Negative: No IgG antibodies to HSV1 detected. HSV 2 glycoprotein G Ab, IgG (test code = 49941-2) Negative Neg ative Negative: No IgG antibodies to HSV2 detected. [facility] MethodistCytomegalovirus Ab, ZfZ1526-59-38 11:09:11* Test Item Value Reference Range Interpretation Comments Cytomegalovirus Ab, IgG (test code = 83760-0) Positive Negative A Positive; IgG antibody to CMV detected which may indicateexposure to CMV infection. Lab Interpretation (test code = 68084-0) Abnormal [facility] MethodistEpstein-Vee virus antibody zpvj2423-00-74 11:08:37* Test Item Value Reference Range Interpretation Comments EBV Ab to viral capsid Ag, IgG (test code = 87338-6) Positive N egative A EBV Ab to viral capsid Ag, IgM (test code = 51833-6) Negative N egative EBV Ab to nuclear Ag, IgG (test code = 7883-2) Positive Negativ e A EBV Ab to early (D) Ag, IgG (test code = 46488-7) Negative Nega tive Helder-Vee virus antibody interpretation (test code = 5466) SEE C OMMENT Infection Status: Results may suggest past EBV infection. Lab Interpretation (test code = 59329-2) Abnormal [facility] MethodistParathyroid gutzpbq9851-03-54 10:15:05* Test Item Value Reference Range Interpretation Comments PTH (test code = 2731-8) 507 pg/mL 15-65 H Lab Interpretation (test code = 34911-2) Abnormal [facility] MethodistAntithrombin III jloct3510-37-93 10:06:44* Test Item Value Reference Range Interpretation Comments Antithrombin III (test code = 3174-0) 81 % 80-130 [facility] MethodistABORh - targcvikly6678-60-37 09:58:00* Test Item Value Reference Range Interpretation Comments ABO grouping (test code = 883-9) O Rh type (test code = 27489-6) POS [facility] XkmgfgqibLbyceizmnt0816-82-90 09:52:47* Test Item Value Reference Range Interpretation Comments Fibrinogen (test code = 11826-1) 627 mg/dL 200-450 H Lab Interpretation (test code = 39333-3) Abnormal [facility] HxxmprpgjLnoxfsbpuja7615-29-62 09:41:25* Test Item Value Reference Range Interpretation Comments Cholesterol (test code = 2093-3) 86 mg/dL <200 [facility] CentennialistCreatinine ljwou2289-56-35 09:41:25* Test Item Value Reference Range Interpretation Comments Creatinine (test code = 2160-0) 4.40 mg/dL 0.7-1.2 H Lab Interpretation (test code = 13502-7) Abnormal [facility] WdsudswsyIVY9843-97-55 09:41:25* Test Item Value Reference Range Interpretation Comments LDH (test code = 14569-5) 235 U/L 87-225 H Lab Interpretation (test code = 88552-1) Abnormal [facility] TrvagixzsIdagbpdzpetxr2478-76-61 09:41:25* Test Item Value Reference Range Interpretation Comments Triglycerides (test code = 2571-8) 103 mg/dL <150 [facility] MethodistEstimated QVX9928-72-56 09:41:25* Test Item Value Reference Range Interpretation Comments Estimated GFR (test code = 5488) 16 mL/min/1.73 m2 A Catergory Units InterpretationG1 >=90 Normal or highG2 60-89 Mildly zovtfnjdnQ5y 45-59 Mildly to moderately rchehcxyuR5e 30-44 Moderately to severely decreasedG4 15-29 Severely decreasedG5 <15 Kidney failureThe eGFR was calculated using the Chronic Kidney Disease Epidemiology Collaboration (CKD-EPI) equation. Interpretation is based on recommendations of the National Kidney Foundation-Kidney Disease Outcomes Quality Initiative (NKF-KDOQI) published in 2014. Lab Interpretation (test code = 47759-2) Abnormal [facility] MethodistAmylase tyyks4366-20-01 09:41:24* Test Item Value Reference Range Interpretation Comments Amylase (test code = 1798-8) 46 U/L 28-100 [facility] MethodistGlucose oajae0006-46-68 09:41:24* Test Item Value Reference Range Interpretation Comments Glucose (test code = 2345-7) 146 mg/dL 65-99 H Lab Interpretation (test code = 13833-2) Abnormal [facility] MethodistPhosphorus ruzwo9775-76-15 09:41:24* Test Item Value Reference Range Interpretation Comments Phosphorus (test code = 2777-1) 4.6 mg/dL 2.4-4.5 H Lab Interpretation (test code = 56560-1) Abnormal [facility] MethodistCT Abdomen Pelvis Wo Ejldftul0846-32-86 09:37:13Hm Interface, Radiology Results - 05/03/2019 9:40 AM CDTEXAMINATION: CT ABDOMEN PELVIS [...] inguinal lymph nodes, nonspecific though may be reactive.[id number] [facility] Methodgerald [facility] centerXR Chest 2 Ya3795-91-71 09:36:57Hm Interface, Radiology Results - 05/03/2019 9:40 AM CDTEXAMINATION: XR CHEST 2 VWCLINICAL HISTORY: N18.6 End stage renal disease, E10.69 Type 1 diabetes mellitus with other specified complication, Routine CXR pre-op no clinical concern from hx and physicalCOMPARISON: NoneIMPRESSION:The cardiomediastinal silhouette is normal in appearance.The lungs are clear. There is no evidence of consolidation, congestion, or pneumothorax.A pleural effusion is not present.Visualized skeletal structures demonstrate no definite abnormality.Negative examination.[facility]-3GK86306JJKmssyte MethodistHGB GVF6797-08-19 16:24:00* Test Item Value Reference Range Interpretation Comments HEMOGLOBIN (test code = HGB) 8.1 gm/dL 13.0-17.0 L HEMATOCRIT (test code = HCT) 25.8 % 36.0-48.0 L OJHSCWKD6685-64-21 16:47:00* Test Item Value Reference Range Interpretation Comments FERRITIN (test code = CHANELLE) 374 ng/mL 23.9-336.2 H HGB CVA5862-02-65 15:41:00* Test Item Value Reference Range Interpretation Comments HEMOGLOBIN (test code = HGB) 8.0 gm/dL 13.0-17.0 L HEMATOCRIT (test code = HCT) 24.8 % 36.0-48.0 LL BASIC METABOLIC TFRWB0576-02-35 18:42:00* Test Item Value Reference Range Interpretation [...] code = CA) 6.3 mg/dl 8.0-10.5 L OVLYCHLVEEK1082-92-89 18:42:00* Test Item Value Reference Range Interpretation Comments PHOSPHOROUS (test code = PHOS) 6.1 mg/dl 2.5-4.9 H URIC RLMJ4346-07-07 18:42:00* Test Item Value Reference Range Interpretation Comments URIC ACID (test code = URIC) 8.7 mg/dl 2.6-7.2 H UJDDMMLIV9018-12-43 18:42:00* Test Item Value Reference Range Interpretation [...] = FESAT) 19 % 15-50 N URINALYSIS ZWGXZYYH5392-71-03 17:35:00* Test Item Value Reference Range Interpretation [...] code = BACU) MOD NONE UR PROTEIN/CREATININE AUNCC1670-41-82 17:35:00* Test Item Value Reference Range Interpretation Comments UR PROTEIN RESULT (test code = PROTU) 421.0 MG/DL 0-15.0 H UR CREATININE RESULT (test code = CREATU) 72.88 MG/DL 30-125 N PROTEIN/CREATININE RATIO (test code = P/CRATIO) 5.0 mg/g cre 0-200 N CBC W/AUTO GRRO6409-04-29 17:25:00* Test Item Value Reference Range Interpretation [...] = BA#) 0.0 K/mm3 0.0-0.2 N URINALYSIS FRQNEOTS4711-06-93 17:24:00* Test Item Value Reference Range Interpretation [...] code = BACU) MOD NONE UR PROTEIN/CREATININE QGAAP2280-28-29 17:24:00* Test Item Value Reference Range Interpretation Comments UR PROTEIN RESULT (test code = PROTU) MG/DL 0-15.0 UR CREATININE RESULT (test code = CREATU) MG/DL 30-125 PROTEIN/CREATININE RATIO (test code = P/CRATIO) mg/g cre 0-200 URINALYSIS GXIQLZOE2009-96-66 17:23:00* Test Item Value Reference Range Interpretation [...] (test code = BACU) NONE UR PROTEIN/CREATININE GCESL6532-71-13 17:23:00* Test Item Value Reference Range Interpretation Comments UR PROTEIN RESULT (test code = PROTU) MG/DL 0-15.0 UR CREATININE RESULT (test code = CREATU) MG/DL 30-125 PROTEIN/CREATININE RATIO (test code = P/CRATIO) mg/g cre 0-200 Sodium Padpy5628-91-63 00:38:00* Test Item Value Reference Range Interpretation Comments Sodium Level (test code = 2951-2) 137 136-145 [facility] CenterPotassium Xkfkg6058-52-68 00:38:00* Test Item Value Reference Range Interpretation Comments Potassium Level (test code = 2823-3) 5.0 3.5-5.1 [facility] CenterChloride Ltcjv2315-54-57 00:38:00* Test Item Value Reference Range Interpretation Comments Chloride Level (test code = 2075-0) 116 98-107 H [facility] CenterCarbon Dioxide Rnkbs8632-07-17 00:38:00* Test Item Value Reference Range Interpretation Comments Carbon Dioxide Level (test code = 2028-9) 13 22-29 L [facility] CenterAnion Ebv8275-51-23 00:38:00* Test Item Value Reference Range Interpretation Comments Anion Gap (test code = 07812-0) 13.0 8-16 [facility] CenterBlood Urea Mdxvhbhu5312-91-06 00:38:00* Test Item Value Reference Range Interpretation Comments Blood Urea Nitrogen (test code = 3094-0) 42 7-26 H [facility] CenterCreatinine2020-01-27 00:38:00* Test Item Value Reference Range Interpretation Comments Creatinine (test code = 2160-0) 4.16 0.72-1.25 [facility] CenterB[facility]/Creatinine Ndoke5628-57-04 00:38:00* Test Item Value Reference Range Interpretation Comments BUN/Creatinine Ratio (test code = 3097-3) 10 6-25 [facility] CenterEstimat Glomerular Filtration Rate 2019-03-21 00:38:00* Test Item Value Reference Range Interpretation Comments Estimat Glomerular Filtration Rate (test code = 278921965) 16 >60 L Ranges were taken from the National Kidney Disease Education Program and the [facility] Kidney Foundation literature.Reference ranges:60 or greater: Epkgux63-86 ( for 3 consecutive months): Chronic kidney disease 15 or less: Kidney failureBaptist Medical CenterGlucose Katvf5459-07-39 00:38:00* Test Item Value Reference Range Interpretation Comments Glucose Level (test code = LVJ8623) 172 74-118 [facility] CenterCalcium Ozxpy6521-56-03 00:38:00* Test Item Value Reference Range Interpretation Comments Calcium Level (test code = 00900-5) 6.6 8.4-10.2 LL Results repeated and called to MICHAEL MONTGOMERY RN at 0037 on 03/21/19 by Wandy branch Read back and verified.[facility] CenterWhite Blood Lutac8281-90-86 00:36:00* Test Item Value Reference Range Interpretation Comments White Blood Count (test code = 6690-2) 5.55 4.8-10.8 [facility] CenterRed Blood Kjmfu5018-79-19 00:36:00* Test Item Value Reference Range Interpretation Comments Red Blood Count (test code = 789-8) 2.73 4.3-5.7 L [facility] CenterHemoglobin2020-01-27 00:36:00* Test Item Value Reference Range Interpretation Comments Hemoglobin (test code = 67137-7) 7.4 14.0-18.0 L [facility] CenterHematocrit2020-01-27 00:36:00* Test Item Value Reference Range Interpretation Comments Hematocrit (test code = 4544-3) 23.3 38.2-49.6 L [facility] CenterMean Corpuscular Lnmmwv9385-26-45 00:36:00* Test Item Value Reference Range Interpretation Comments Mean Corpuscular Volume (test code = 787-2) 85.3 81-99 [facility] CenterMean Corpuscular Etcntlbenx5331-40-98 00:36:00* Test Item Value Reference Range Interpretation Comments Mean Corpuscular Hemoglobin (test code = 785-6) 27.1 28-32 L [facility] CenterMean Corpuscular Hemoglobin Concent 2019-03-21 00:36:00* Test Item Value Reference Range Interpretation Comments Mean Corpuscular Hemoglobin Concent (test code = 786-4) 31.8 31-35 [facility] CenterRed Cell Distribution Oizcd9189-91-37 00:36:00* Test Item Value Reference Range Interpretation Comments Red Cell Distribution Width (test code = 10943-4) 14.7 11.7 -14.4 H [facility] CenterPlatelet Fjktj6797-31-83 00:36:00* Test Item Value Reference Range Interpretation Comments Platelet Count (test code = 777-3) 187 140-360 [facility] CenterNeutrophils (%) (Auto)2019-03-21 00:36:00 * Test Item Value Reference Range Interpretation Comments Neutrophils (%) (Auto) (test code = 33758-5) 68.1 38.7-80.0 [facility] CenterLymphocytes (%) (Auto)2019-03-21 00:36:00 * Test Item Value Reference Range Interpretation Comments Lymphocytes (%) (Auto) (test code = 736-9) 19.8 18.0-39.1 [facility] CenterMonocytes (%) (Auto)2019-03-21 00:36:00* Test Item Value Reference Range Interpretation Comments Monocytes (%) (Auto) (test code = 5905-5) 9.2 4.4-11.3 [facility] CenterEosinophils (%) (Auto)2019-03-21 00:36:00 * Test Item Value Reference Range Interpretation Comments Eosinophils (%) (Auto) (test code = 713-8) 1.6 0.0-6.0 [facility] CenterBasophils (%) (Auto)2019-03-21 00:36:00* Test Item Value Reference Range Interpretation Comments Basophils (%) (Auto) (test code = 706-2) 0.4 0.0-1.0 [facility] CenterIM GRANULOCYTES %2019-03-21 00:36:00* Test Item Value Reference Range Interpretation Comments IM GRANULOCYTES % (test code = IM GRANULOCYTES %) 0.9 0.0- 1.0 [facility] CenterNeutrophils # (Auto)2019-03-21 00:36:00* Test Item Value Reference Range Interpretation Comments Neutrophils # (Auto) (test code = 751-8) 3.8 2.1-6.9 [facility] CenterLymphocytes # (Auto)2019-03-21 00:36:00* Test Item Value Reference Range Interpretation Comments Lymphocytes # (Auto) (test code = 29000-7) 1.1 1.0-3.2 [facility] CenterMonocytes # (Auto)2019-03-21 00:36:00* Test Item Value Reference Range Interpretation Comments Monocytes # (Auto) (test code = 742-7) 0.5 0.2-0.8 [facility] CenterEosinophils # (Auto)2019-03-21 00:36:00* Test Item Value Reference Range Interpretation Comments Eosinophils # (Auto) (test code = 711-2) 0.1 0.0-0.4 [facility] CenterBasophils # (Auto)2019-03-21 00:36:00* Test Item Value Reference Range Interpretation Comments Basophils # (Auto) (test code = 704-7) 0.0 0.0-0.1 [facility] CenterAbsolute Immature Granulocyte (auto 2019-03-21 00:36:00* Test Item Value Reference Range Interpretation Comments Absolute Immature Granulocyte (auto (shin t code = Absolute Immature Granulocyte (auto) 0.05 0-0.1 [facility] CenterUrine IAA0487-29-32 00:27:00* Test Item Value Reference Range Interpretation Comments Urine WBC (test code = 5821-4) >50 0-5 H [facility] CenterUrine PPU0591-33-20 00:27:00* Test Item Value Reference Range Interpretation Comments Urine RBC (test code = 88255-9) >50 0-5 H [facility] CenterUrine Friwilzd3980-85-23 00:27:00* Test Item Value Reference Range Interpretation Comments Urine Bacteria (test code = 05650-8) MANY NONE H [facility] CenterUrine Epithelial Isuxq5234-21-67 00:27:00 * Test Item Value Reference Range Interpretation Comments Urine Epithelial Cells (test code = 28060-4) FEW NONE [facility] CenterUrine Gythu4872-80-23 00:19:00* Test Item Value Reference Range Interpretation Comments Urine Color (test code = 5778-6) REMEDIOS YELLOW H [facility] CenterUrine Hugbvpt4220-70-96 00:19:00* Test Item Value Reference Range Interpretation Comments Urine Clarity (test code = 28542-0) CLOUDY CLEAR H [facility] CenterUrine Specific Qmnynwc3850-48-39 00:16:00 * Test Item Value Reference Range Interpretation Comments Urine Specific [place] (test code = 5811-5) 1.025 1.010-1.02 5 [facility] CenterUrine uR6192-06-65 00:16:00* Test Item Value Reference Range Interpretation Comments Urine pH (test code = 48319-1) 6.5 5-7 [facility] CenterUrine Leukocyte Sgrpdopf0608-31-24 00:16:00* Test Item Value Reference Range Interpretation Comments Urine Leukocyte Esterase (test code = 5799-2) 2+ NEGATIVE H [facility] CenterUrine Hdonpts4196-67-62 00:16:00* Test Item Value Reference Range Interpretation Comments Urine Nitrite (test code = 35438-8) POSITIVE NEGATIVE H [facility] CenterUrine Tzupkck1956-53-48 00:16:00* Test Item Value Reference Range Interpretation Comments Urine Protein (test code = 5804-0) 3+ NEGATIVE H [facility] CenterUrine Glucose (UA)2019-03-21 00:16:00* Test Item Value Reference Range Interpretation Comments Urine Glucose (UA) (test code = 2349-9) 1+ NEGATIVE H [facility] CenterUrine Mzyrqjk4778-75-07 00:16:00* Test Item Value Reference Range Interpretation Comments Urine Ketones (test code = 02399-8) NEGATIVE NEGATIVE [facility] CenterUrine Qfdqtodvrwst4590-90-33 00:16:00* Test Item Value Reference Range Interpretation Comments Urine Urobilinogen (test code = 46229-2) 0.2 0.2-1 [facility] Fljllpsze1406-92-04 00:16:00* Test Item Value Reference Range Interpretation Comments Urine Bilirubin (test code = 1978-6) NEGATIVE NEGATIVE [facility] CenterUrine Rfzwf1096-14-43 00:16:00* Test Item Value Reference Range Interpretation Comments Urine Blood (test code = 54271-7) 4+ NEGATIVE H [facility] Cwosyzf8934-66-14 11:47:00* Test Item Value Reference Range Interpretation Comments Bedside Glucose (test code = 06401-5) 113 70-120 Meter ID: [id number] Glucose 2019-02-20 11:47:00* Test Item Value Reference Range Interpretation Comments Bedside Glucose (test code = 75576-5) 113 70-120 Meter ID: [id number] Hospital [facility] Laredoodium Level 2019-02-19 12:01:00* Test Item Value Reference Range Interpretation Comments Sodium Level (test code = 2951-2) 135 136-145 L [facility] CenterPotassium Tbkdk2619-05-75 12:01:00* Test Item Value Reference Range Interpretation Comments Potassium Level (test code = 2823-3) 4.4 3.5-5.1 [facility] CenterChloride Ajigf0360-04-37 12:01:00* Test Item Value Reference Range Interpretation Comments Chloride Level (test code = 2075-0) 107 98-107 [facility] CenterCarbon Dioxide Zyibr2249-89-40 12:01:00* Test Item Value Reference Range Interpretation Comments Carbon Dioxide Level (test code = 2028-9) 22 22-29 [facility] CenterAnion Bvw5571-15-04 12:01:00* Test Item Value Reference Range Interpretation Comments Anion Gap (test code = 27174-0) 10.4 8-16 [facility] CenterBlood Urea Mbunrscu9105-39-33 12:01:00* Test Item Value Reference Range Interpretation Comments Blood Urea Nitrogen (test code = 3094-0) 28 7-26 H [facility] CenterCreatinine2019-12-28 12:01:00* Test Item Value Reference Range Interpretation Comments Creatinine (test code = 2160-0) 3.39 0.72-1.25 H [facility] CenterBUN/Creatinine Fllpm8583-01-23 12:01:00* Test Item Value Reference Range Interpretation Comments BUN/Creatinine Ratio (test code = 3097-3) 8 6-25 [facility] CenterEstimat Glomerular Filtration Rate 2019-02-19 12:01:00* Test Item Value Reference Range Interpretation Comments Estimat Glomerular Filtration Rate (test code = 894424276) 20 >60 L Ranges were taken from the National Kidney Disease Education Program and the [facility] Kid[facility] Foundation literature.Reference ranges:60 or greater: Akofok70-86 ( for 3 consecutive months): Chronic kidney disease 15 or less: Kidney failureBaptist Medical CenterGlucose Wbqte7233-83-23 12:01:00* Test Item Value Reference Range Interpretation Comments Glucose Level (test code = MWM2476) 158 74-118 H [facility] CenterCalcium Apckw2974-03-20 12:01:00* Test Item Value Reference Range Interpretation Comments Calcium Level (test code = 20186-4) 7.2 8.4-10.2 L [facility] CenterWhite Blood Awowo1751-49-21 11:43:00* Test Item Value Reference Range Interpretation Comments White Blood Count (test code = 6690-2) 3.62 4.8-10.8 L [facility] CenterRed Blood Emnzx0415-44-46 11:43:00* Test Item Value Reference Range Interpretation Comments Red Blood Count (test code = 789-8) 2.84 4.3-5.7 L [facility] CenterHemoglobin2019-12-28 11:43:00* Test Item Value Reference Range Interpretation Comments Hemoglobin (test code = 08816-7) 7.5 14.0-18.0 L [facility] CenterHematocrit2019-12-28 11:43:00* Test Item Value Reference Range Interpretation Comments Hematocrit (test code = 4544-3) 23.2 38.2-49.6 L [facility] CenterMean Corpuscular Uixurn4141-80-00 11:43:00* Test Item Value Reference Range Interpretation Comments Mean Corpuscular Volume (test code = 787-2) 81.7 81-99 [facility] CenterMean Corpuscular Kkkwkftscm4105-92-71 11:43:00* Test Item Value Reference Range Interpretation Comments Mean Corpuscular Hemoglobin (test code = 785-6) 26.4 28-32 L [facility] CenterMean Corpuscular Hemoglobin Concent 2019-02-19 11:43:00* Test Item Value Reference Range Interpretation Comments Mean Corpuscular Hemoglobin Concent (test code = 786-4) 32.3 31-35 [facility] CenterRed Cell Distribution Szhfk9131-95-00 11:43:00* Test Item Value Reference Range Interpretation Comments Red Cell Distribution Width (test code = 75405-2) 15.9 11.7 -14.4 H [facility] CenterPlatelet Aodmz7376-92-64 11:43:00* Test Item Value Reference Range Interpretation Comments Platelet Count (test code = 777-3) 95 140-360 L [facility] CenterNeutrophils (%) (Auto)2019-02-19 11:43:00 * Test Item Value Reference Range Interpretation Comments Neutrophils (%) (Auto) (test code = 63593-4) 57.5 38.7-80.0 [facility] CenterLymphocytes (%) (Auto)2019-02-19 11:43:00 * Test Item Value Reference Range Interpretation Comments Lymphocytes (%) (Auto) (test code = 736-9) 30.9 18.0-39.1 [facility] CenterMonocytes (%) (Auto)2019-02-19 11:43:00* Test Item Value Reference Range Interpretation Comments Monocytes (%) (Auto) (test code = 5905-5) 6.9 4.4-11.3 [facility] CenterEosinophils (%) (Auto)2019-02-19 11:43:00 * Test Item Value Reference Range Interpretation Comments Eosinophils (%) (Auto) (test code = 713-8) 3.3 0.0-6.0 [facility] CenterBasophils (%) (Auto)2019-02-19 11:43:00* Test Item Value Reference Range Interpretation Comments Basophils (%) (Auto) (test code = 706-2) 0.3 0.0-1.0 [facility] CenterIM GRANULOCYTES %2019-02-19 11:43:00* Test Item Value Reference Range Interpretation Comments IM GRANULOCYTES % (test code = IM GRANULOCYTES %) 1.1 0.0- 1.0 H [facility] CenterNeutrophils # (Auto)2019-02-19 11:43:00* Test Item Value Reference Range Interpretation Comments Neutrophils # (Auto) (test code = 751-8) 2.1 2.1-6.9 [facility] CenterLymphocytes # (Auto)2019-02-19 11:43:00* Test Item Value Reference Range Interpretation Comments Lymphocytes # (Auto) (test code = 52784-0) 1.1 1.0-3.2 [facility] CenterMonocytes # (Auto)2019-02-19 11:43:00* Test Item Value Reference Range Interpretation Comments Monocytes # (Auto) (test code = 742-7) 0.3 0.2-0.8 [facility] CenterEosinophils # (Auto)2019-02-19 11:43:00* Test Item Value Reference Range Interpretation Comments Eosinophils # (Auto) (test code = 711-2) 0.1 0.0-0.4 [facility] CenterBasophils # (Auto)2019-02-19 11:43:00* Test Item Value Reference Range Interpretation Comments Basophils # (Auto) (test code = 704-7) 0.0 0.0-0.1 [facility] CenterAbsolute Immature Granulocyte (auto 2019-02-19 11:43:00* Test Item Value Reference Range Interpretation Comments Absolute Immature Granulocyte (auto (shin t code = Absolute Immature Granulocyte (auto) 0.04 0-0.1 [facility] Jntkqmy2809-41-17 07:44:00* Test Item Value Reference Range Interpretation Comments Urine Culture (test code = 630-4) No Result Data Provided [facility]2019-12-28 07:44:00* Test Item Value Reference Range Interpretation Comments Urine Culture (test code = 630-4) No Result Data Provided [facility]2019-12-28 07:44:00* Test Item Value Reference Range Interpretation Comments Urine Culture (test code = 630-4) No Result Data Provided [facility]2019-12-28 07:44:00* Test Item Value Reference Range Interpretation Comments Urine Culture (test code = 630-4) No Result Data Provided [facility]2019-12-28 07:44:00* Test Item Value Reference Range Interpretation Comments Urine Culture (test code = 630-4) No Result Data Provided [facility] CenterNEPH TUBE REMOVAL W/FL IBITM1308-09-12 15:39:00 [facility] [address] [address] Patient Name: MANJIT LUO MR #: [id number] : 1980 Age/Sex: 38/M Req #: [id number] [facility] Physician: TONY MAY MD Ordered by: TONY MAY MD Report #: [id number] Location: MED/SURG Room/Bed: [facility] Procedure: [id number] IR/NE PH TUBE REMOVAL W/FL RIGHT Exam [...] 3:41 PM Dictated By: RONNIE GUALLPA MD 1443 Transcribed By: TIFFANY on 02/18/19 709 COPY TO: TONY MAY MD Dqsgomtc4363-85-78 07:06:00* Test Item Value Reference Range Interpretation Comments Ferritin (test code = 2276-4) 23.96 21.81-274.66 [facility] 07:06:00* Test Item Value Reference Range Interpretation Comments Ferritin (test code = 2276-4) 23.96 21.81-274.66 [facility] CenterIonized Xcreqek5590-75-50 06:39:00* Test Item Value Reference Range Interpretation Comments Ionized Calcium (test code = 31033-3) 1.0 1.09-1.30 L [facility] Xtlsumq0978-05-52 06:39:00* Test Item Value Reference Range Interpretation Comments Ionized Calcium (test code = 20880-8) 1.0 1.09-1.30 L [facility] Bhfcyjg1273-61-57 06:39:00* Test Item Value Reference Range Interpretation Comments Ionized Calcium (test code = 66160-4) 1.0 1.09-1.30 L [facility] Vrnsone7106-48-67 06:39:00* Test Item Value Reference Range Interpretation Comments Ionized Calcium (test code = 73968-1) 1.0 1.09-1.30 L [facility] Pfvpoic8743-66-79 06:39:00* Test Item Value Reference Range Interpretation Comments Ionized Calcium (test code = 22475-0) 1.0 1.09-1.30 L [facility] CenterPhosphorus Hbzum4384-68-30 08:27:00* Test Item Value Reference Range Interpretation Comments Phosphorus Level (test code = LUL1764) 4.3 2.3-4.7 [facility] CenterAlbumin2019-12-26 08:27:00* Test Item Value Reference Range Interpretation Comments Albumin (test code = 1751-7) 2.4 3.5-5.0 L [facility] CenterPhosphorus Lfxag7897-26-95 08:27:00* Test Item Value Reference Range Interpretation Comments Phosphorus Level (test code = ZZW6802) 4.3 2.3-4.7 [facility] CenterAlbumin2019-12-26 08:27:00* Test Item Value Reference Range Interpretation Comments Albumin (test code = 1751-7) 2.4 3.5-5.0 L [facility] CenterUrine Itrcb8938-74-33 10:43:00* Test Item Value Reference Range Interpretation Comments Urine Color (test code = 5778-6) REMEDIOS YELLOW H [facility] CenterUrine Gscrzus9859-72-97 10:43:00* Test Item Value Reference Range Interpretation Comments Urine Clarity (test code = 40221-9) CLOUDY CLEAR H [facility] Specific Pkbkjle3311-44-09 10:43:00 * Test Item Value Reference Range Interpretation Comments Urine Specific [place] (test code = 5811-5) 1.020 1.010-1.02 5 [facility] CenterUrine dI6202-76-89 10:43:00* Test Item Value Reference Range Interpretation Comments Urine pH (test code = 27401-7) 6.5 5-7 [facility] Leukocyte Xgzctmcw9202-95-78 10:43:00* Test Item Value Reference Range Interpretation Comments Urine Leukocyte Esterase (test code = 5799-2) MODERATE NEGATIVE [facility] Ppotjtj2588-09-80 10:43:00* Test Item Value Reference Range Interpretation Comments Urine Nitrite (test code = 18558-7) NEGATIVE NEGATIVE [facility] CenterUrine Guziysu9457-19-50 10:43:00* Test Item Value Reference Range Interpretation Comments Urine Protein (test code = 5804-0) 2+ NEGATIVE H [facility] CenterUrine Glucose (UA)2019-02-16 10:43:00* Test Item Value Reference Range Interpretation Comments Urine Glucose (UA) (test code = 2349-9) NEGATIVE NEGATIVE [facility] CenterUrine Dndynqf8926-09-95 10:43:00* Test Item Value Reference Range Interpretation Comments Urine Ketones (test code = 78941-5) NEGATIVE NEGATIVE [facility] CenterUrine Qpfirlyjxdxd1163-27-24 10:43:00* Test Item Value Reference Range Interpretation Comments Urine Urobilinogen (test code = 70144-1) 0.2 0.2-1 [facility] CenterUrine Qwhadkado6690-78-16 10:43:00* Test Item Value Reference Range Interpretation Comments Urine Bilirubin (test code = 1978-6) SMALL NEGATIVE [facility] CenterUrine Tyxge5926-31-12 10:43:00* Test Item Value Reference Range Interpretation Comments Urine Blood (test code = 08957-1) NEGATIVE NEGATIVE [facility] CenterUrine TEG7458-99-07 10:43:00* Test Item Value Reference Range Interpretation Comments Urine WBC (test code = 5821-4) 0-5 0-5 [facility] CenterUrine FIT6896-42-24 10:43:00* Test Item Value Reference Range Interpretation Comments Urine RBC (test code = 95964-2) 0-5 0-5 [facility] CenterUrine Yhocomzz6190-15-42 10:43:00* Test Item Value Reference Range Interpretation Comments Urine Bacteria (test code = 47924-6) RARE NONE [facility] CenterUrine Epithelial Kdhyv1454-86-01 10:43:00 * Test Item Value Reference Range Interpretation Comments Urine Epithelial Cells (test code = 91366-3) FEW NONE [facility] CenterBacterial urine fczoxyn5305-62-03 09:30:00* Test Item Value Reference Range Interpretation Comments Urine Culture (test code = 630-4) STAPHYLOCOCCUS AUREUS [facility] CenterMagnesium Bwwyd7754-42-09 06:58:00* Test Item Value Reference Range Interpretation Comments Magnesium Level (test code = 68400-5) 1.3 1.3-2.1 [facility] CenterMagnesium Qsddf1112-31-15 06:58:00* Test Item Value Reference Range Interpretation Comments Magnesium Level (test code = 60225-5) 1.3 1.3-2.1 [facility] CenterMagnesium Scuyh3213-72-12 06:58:00* Test Item Value Reference Range Interpretation Comments Magnesium Level (test code = 15719-7) 1.3 1.3-2.1 [facility] CenterIR QPZLSRV1078-23-69 16:41:00 [facility] [address] [place] [address] Patient Name: MANJIT LUO MR #: [id number] : 1980 Age/Sex: 38/M Req #: [id number] [facility] Physician: TONY MAY MD Ordered by: TONY MAY MD Report #: [id number] Location: MED/SURG Room/Bed: [facility] Procedure: [id number] DX/IR CONSULT Exam Date: Exam Time: REPORT STATUS: Signed PROCEDURE: Genitourinary cath eter placement Procedural Personnel Attending physician(s): Umu Mondragon Fellow physician(s): None Resident physician(s): None Advanced practice provider(s): None Pre-procedure diagnosis: Ureteral obstruction Post-proc edure diagnosis: Same Indication: Urinary obstruction Catheter(s) placed bec ause the previous catheter(s) became dislodged within 30 days of placement (TABITHA PUTNAM): No Additional clinical history: None Complications: No [...] urology. PROCEDURE SUMMARY - Target organ: Unilateral [place] kidney - Image-guided placement of genitour inary [...] PM Dictated By: JOSE F FERRER MD 7169 Transc ribed By: TIFFANY on 02/15/191645 COPY TO: TONY MAY MD NEPHRO/URET W IMG/INJ-NEW XEQ5942-02-78 16:41:[address] [address] Patient Name: MANJIT LUO MR #: [id number] : 1980 Age/Sex: 38/M Req #: [id number] [facility] Physician: TONY MAY MD Ordered by: TONY MAY MD Report #: [id number] Location: MED/SURG Room/Bed: [facility] Procedure: [id number] IR/NE PHRO/URET W IMG/INJ-[facility] Exam Date: Exam Time: REPORT STATUS: Signed [...] urology. PROCEDURE SUMMARY - Target organ: Unilateral [place] kidney - Image-guided pl acement of genitourinary [...] loss (mL): Less than 10 Standardized report: SIR_GUCatheterPlac ement_v3 Attestation Signer name: Jose F Ferrer MD I attest that I was pr esent for the entire procedure. I reviewed the stored images and agree with th e report as written. Signed by: Jose F Ferrer MD on 02/15/2019 4:46 PM Dictated By: JOSE F FERRER MD 45 COPY TO: BLANCA MAY MD US GUIDANCE FOR BXPDIHSOW6543-49-20 16:41:00 [address] [address] Patient Name: MANJIT LUO MR #: [id number] : 1980 Age/Sex: 38/M Req #: [id number] Adm Physician: TONY MAY MD Ordered by: TONY MAY MD Report #: [id number] Location: MED/SURG Room/Bed: [facility] Procedure: [id number] US/US GUIDANCE FOR PROCEDURE Exam Date: 02/15/19 Exam Cm e: 1258 REPORT STATUS: Signed NE OCEDURE: Genitourinary catheter placement Procedural Personnel Attending [...] Nephrostomy capped. Patient knows to uncap to lucilaty if develops fevers, chills, increasing flank pain. Continue managem ent per urology. __ PROCEDURE SUMMARY - Target organ: Unilateral [place] kidney - Image-g uided placement of genitourinary [...] loss (mL): Less than 10 Standardized report: SIR_Anuj eterPlacement_v3 Attestation Signer name: Jose F Ferrer MD I attest that I was present for the entire procedure. I reviewed the stored images and agree with the report as written. Signed by: Jose F Ferrer MD on 02/15/2019 4:46 PM Dictated By: JOSE F FERRER MD 45 Transcribed By: TIFFANY on 02/15/191645 COPY TO: TONY CESPEDES MD Prothrombin Yelk5018-08-72 16:06:00* Test Item Value Reference Range Interpretation Comments Prothrombin Time (test code = 5902-2) 14.4 11.9-14.5 [facility] CenterProthromb Time International Ratio 2019-02-15 16:06:00* Test Item Value Reference Range Interpretation Comments Prothromb Time International Ratio (test code = 6301-6) 1.07 Oral Anticoagulant Therapy INR Values:1. Low Intensity Therapy 1.5 - 2.02 . Moderate Intensity Therapy 2.0 - 3.03. High Intensity Therapy(1) 2.5 - 3. 54. High Intensity Therapy(2) 3.0 - 4.05. Panic Value INR > 5.0 [facility]Act[facility] Partial Thromboplast Time 2019-02-15 16:06:00* Test Item Value Reference Range Interpretation Comments Activated Partial Thromboplast Time (test code = 52863-8) 32.7 23.8-35.5 [facility] CenterProthrombin Aefd9461-01-59 16:06:00* Test Item Value Reference Range Interpretation Comments Prothrombin Time (test code = 5902-2) 14.4 11.9-14.5 [facility] CenterProthromb Time International Ratio 2019-02-15 16:06:00* Test Item Value Reference Range Interpretation Comments Prothromb Time International Ratio (test code = 6301-6) 1.07 Oral Anticoagulant Therapy INR Values:1. Low Intensity Therapy 1.5 - 2.02 . Moderate Intensity Therapy 2.0 - 3.03. High Intensity Therapy(1) 2.5 - 3. 54. High Intensity Therapy(2) 3.0 - 4.05. Panic Value INR > 5.0 [facility] CenterAct[facility] Partial Thromboplast Time 2019-02-15 16:06:00* Test Item Value Reference Range Interpretation Comments Activated Partial Thromboplast Time (test code = 28163-8) 32.7 23.8-35.5 [facility] CenterAct[facility] Partial Thromboplast Time 2019-02-15 16:06:00* Test Item Value Reference Range Interpretation Comments Activated Partial Thromboplast Time (test code = 96015-1) 32.7 23.8-35.5 [facility] CenterAct[facility] Partial Thromboplast Time 2019-02-15 16:06:00* Test Item Value Reference Range Interpretation Comments Activated Partial Thromboplast Time (test code = 13217-0) 32.7 23.8-35.5 [facility] CenterAct[facility] Partial Thromboplast Time 2019-02-15 16:06:00* Test Item Value Reference Range Interpretation Comments Activated Partial Thromboplast Time (test code = 38211-6) 32.7 23.8-35.5 [facility] CenterActivated partial thromboplastin time (aPTT) in platelet poor plasma by coagulation iauxk6987-70-74 14:23:00* Test Item Value Reference Range Interpretation Comments Activated Partial Thromboplast Time (test code = 42324-3) 32.7 23.8-35.5 [facility] CenterRE[facility] SCAN W/PXLJH0144-64-78 18:29:00 [facility] [address] [place] [address] Patient Name: MANJIT LUO MR #: [id number] : 1980 Age/Sex: 38/M Req #: [id number] Adm Physician: Ordered by: TONY MAY MD Report #: [id number] Location: [place] Room/Bed: Procedure: [id number] NM/RE NAL SCAN W/LASIX Exam Date: 01/14/19 [...] COPY TO: TONY MAY MD ABDOMEN 2 [id number] 11:34:00 [place] [id number] Patient Name: MANJIT LUO MR #: [id number] : 1980 Age/Sex: 38/M Req #: [id number] Adm Physician: Ordered by: LUZ MARINA CURRIE MD Report #: [id number] Location: ER Room/Bed: Procedure: [id number] DX/ABDOMEN 2 VIEW Exam Date: 11/11/18 [...] AM Dictated B y: JONATHAN PETE MD 34 Transcribed By: TIFFANY on 11/11/181134 COPY TO: LUZ MARINA CURRIE MD Differential Total Cells Jawvqja6272-74-62 11:23:00* Test Item Value Reference Range Interpretation Comments Differential Total Cells Counted (test code = Differomar tial Total Cells Counted) 100 [facility] CenterNeutrophils % (Manual)2018-11-11 11:23:00 * Test Item Value Reference Range Interpretation Comments Neutrophils % (Manual) (test code = 61576-9) 74 40-74 [facility] CenterLymphocytes % (Manual)2018-11-11 11:23:00 * Test Item Value Reference Range Interpretation Comments Lymphocytes % (Manual) (test code = 737-7) 19 19-48 [facility] CenterMonocytes % (Manual)2018-11-11 11:23:00* Test Item Value Reference Range Interpretation Comments Monocytes % (Manual) (test code = 744-3) 5 3.4-9.0 [facility] CenterEosinophils % (Manual)2018-11-11 11:23:00 * Test Item Value Reference Range Interpretation Comments Eosinophils % (Manual) (test code = 714-6) 2 0-7 [facility] CenterPlatelet Vjxzsuvn4731-46-65 11:23:00* Test Item Value Reference Range Interpretation Comments Platelet Estimate (test code = 65010-0) MODERATELY DECREASED [facility] CenterPlatelet Morphology Pzpsfqr4691-22-31 11:23:00* Test Item Value Reference Range Interpretation Comments Platelet Morphology Comment (test code = 12965-5) FEW LARGE NO PLT [facility]CH[facility]Red [facility] Morph[facility] Comment 2018-11-11 11:23:00* Test Item Value Reference Range Interpretation Comments Red Cell Morphology Comment (test code = 6742-1) NORMAL [facility] CenterDifferential Total Cells Counted 2018-11-11 11:23:00* Test Item Value Reference Range Interpretation Comments Differential Total Cells Counted (test code = Differomar tial Total Cells Counted) 100 [facility] CenterNeutrophils % (Manual)2018-11-11 11:23:00 * Test Item Value Reference Range Interpretation Comments Neutrophils % (Manual) (test code = 97160-9) 74 40-74 [facility] CenterLymphocytes % (Manual)2018-11-11 11:23:00 * Test Item Value Reference Range Interpretation Comments Lymphocytes % (Manual) (test code = 737-7) 19 19-48 [facility] CenterMonocytes % (Manual)2018-11-11 11:23:00* Test Item Value Reference Range Interpretation Comments Monocytes % (Manual) (test code = 744-3) 5 3.4-9.0 [facility] CenterEosinophils % (Manual)2018-11-11 11:23:00 * Test Item Value Reference Range Interpretation Comments Eosinophils % (Manual) (test code = 714-6) 2 0-7 [facility] CenterPlatelet Hptcapds7025-15-11 11:23:00* Test Item Value Reference Range Interpretation Comments Platelet Estimate (test code = 70615-3) MODERATELY DECREASED [facility] CenterPlatelet Morphology Qfmrnhj2863-02-57 11:23:00* Test Item Value Reference Range Interpretation Comments Platelet Morphology Comment (test code = 65885-5) FEW LARGE NO PLT CLUMPSCHI [facility] CenterRed Cell Morphology Comment 2018-11-11 11:23:00* Test Item Value Reference Range Interpretation Comments Red Cell Morphology Comment (test code = 6742-1) NORMAL [facility] CenterDifferential Total Cells Counted 2018-11-11 11:23:00* Test Item Value Reference Range Interpretation Comments Differential Total Cells Counted (test code = Differen tial Total Cells Counted) 100 [facility] CenterNeutrophils % (Manual)2018-11-11 11:23:00 * Test Item Value Reference Range Interpretation Comments Neutrophils % (Manual) (test code = 09833-1) 74 40-74 [facility] CenterLymphocytes % (Manual)2018-11-11 11:23:00 * Test Item Value Reference Range Interpretation Comments Lymphocytes % (Manual) (test code = 737-7) 19 19-48 [facility] CenterMonocytes % (Manual)2018-11-11 11:23:00* Test Item Value Reference Range Interpretation Comments Monocytes % (Manual) (test code = 744-3) 5 3.4-9.0 [facility] CenterEosinophils % (Manual)2018-11-11 11:23:00 * Test Item Value Reference Range Interpretation Comments Eosinophils % (Manual) (test code = 714-6) 2 0-7 [facility] CenterPlatelet Zngmstzw1403-59-96 11:23:00* Test Item Value Reference Range Interpretation Comments Platelet Estimate (test code = 91565-9) MODERATELY DECREASED [facility] CenterPlatelet Morphology Qsfzmyq9714-91-20 11:23:00* Test Item Value Reference Range Interpretation Comments Platelet Morphology Comment (test code = 20197-7) FEW LARGE NO PLT CLUMPSBaptist Medical CenterRed Cell Morphology Comment 2018-11-11 11:23:00* Test Item Value Reference Range Interpretation Comments Red Cell Morphology Comment (test code = 6742-1) NORMAL [facility] CenterDifferential Total Cells Counted 2018-11-11 11:23:00* Test Item Value Reference Range Interpretation Comments Differential Total Cells Counted (test code = Differen tial Total Cells Counted) 100 [facility] CenterNeutrophils % (Manual)2018-11-11 11:23:00 * Test Item Value Reference Range Interpretation Comments Neutrophils % (Manual) (test code = 24147-7) 74 40-74 [facility] CenterLymphocytes % (Manual)2018-11-11 11:23:00 * Test Item Value Reference Range Interpretation Comments Lymphocytes % (Manual) (test code = 737-7) - [facility] CenterMonocytes % (Manual)2018-11-11 11:23:00* Test Item Value Reference Range Interpretation Comments Monocytes % (Manual) (test code = 744-3) 5 3.4-9.0 [facility] CenterEosinophils % (Manual)2018-11-11 11:23:00 * Test Item Value Reference Range Interpretation Comments Eosinophils % (Manual) (test code = 714-6) 2 0-7 [facility] CenterPlatelet Ceuoanrj8251-10-75 11:23:00* Test Item Value Reference Range Interpretation Comments Platelet Estimate (test code = 57511-5) MODERATELY DECREASED [facility] CenterPlatelet Morphology Nkyfodx2509-29-71 11:23:00* Test Item Value Reference Range Interpretation Comments Platelet Morphology Comment (test code = 79628-0) FEW LARGE NO PLT CLUMPSBaptist Medical CenterRed Cell Morphology Comment 2018-11-11 11:23:00* Test Item Value Reference Range Interpretation Comments Red Cell Morphology Comment (test code = 6742-1) NORMAL [facility] CenterDifferential Total Cells Counted 2018-11-11 11:23:00* Test Item Value Reference Range Interpretation Comments Differential Total Cells Counted (test code = Differomar tial Total Cells Counted) 100 [facility] CenterNeutrophils % (Manual)2018-11-11 11:23:00 * Test Item Value Reference Range Interpretation Comments Neutrophils % (Manual) (test code = 40738-1) 74 40-74 [facility] CenterLymphocytes % (Manual)2018-11-11 11:23:00 * Test Item Value Reference Range Interpretation Comments Lymphocytes % (Manual) (test code = 737-7) 19 [facility] CenterMonocytes % (Manual)2018-11-11 11:23:00* Test Item Value Reference Range Interpretation Comments Monocytes % (Manual) (test code = 744-3) 5 3.4-9.0 [facility] CenterEosinophils % (Manual)2018-11-11 11:23:00 * Test Item Value Reference Range Interpretation Comments Eosinophils % (Manual) (test code = 714-6) 2 0-7 [facility] CenterPlatelet Innrqerr4226-32-89 11:23:00* Test Item Value Reference Range Interpretation Comments Platelet Estimate (test code = 91549-6) MODERATELY DECREASED [facility] CenterPlatelet Morphology Lollfyj4188-39-15 11:23:00* Test Item Value Reference Range Interpretation Comments Platelet Morphology Comment (test code = 39117-6) FEW LARGE NO PLT CLUMPSBaptist Medical CenterRed Cell Morphology Comment 2018-11-11 11:23:00* Test Item Value Reference Range Interpretation Comments Red Cell Morphology Comment (test code = 6742-1) NORMAL [facility] CenterDifferential Total Cells Counted 2018-11-11 11:23:00* Test Item Value Reference Range Interpretation Comments Differential Total Cells Counted (test code = Differomar tial Total Cells Counted) 100 [facility] CenterNeutrophils % (Manual)2018-11-11 11:23:00 * Test Item Value Reference Range Interpretation Comments Neutrophils % (Manual) (test code = 55357-6) 74 40-74 [facility] CenterLymphocytes % (Manual)2018-11-11 11:23:00 * Test Item Value Reference Range Interpretation Comments Lymphocytes % (Manual) (test code = 737-7) 19 19-48 [facility] CenterMonocytes % (Manual)2018-11-11 11:23:00* Test Item Value Reference Range Interpretation Comments Monocytes % (Manual) (test code = 744-3) 5 3.4-9.0 [facility] CenterEosinophils % (Manual)2018-11-11 11:23:00 * Test Item Value Reference Range Interpretation Comments Eosinophils % (Manual) (test code = 714-6) 2 0-7 [facility] CenterPlatelet Bzjeksxc4661-61-13 11:23:00* Test Item Value Reference Range Interpretation Comments Platelet Estimate (test code = 49354-8) MODERATELY DECREASED [facility] CenterPlatelet Morphology Jouudoy5907-65-21 11:23:00* Test Item Value Reference Range Interpretation Comments Platelet Morphology Comment (test code = 50494-1) FEW LARGE NO PLT CLUMPSBaptist Medical CenterRed Cell Morphology Comment 2018-11-11 11:23:00* Test Item Value Reference Range Interpretation Comments Red Cell Morphology Comment (test code = 6742-1) NORMAL [facility] CenterUrine BKO7992-46-93 08:27:00* Test Item Value Reference Range Interpretation Comments Urine WBC (test code = 5821-4) 21-50 0-5 H [facility] CenterUrine URL1796-67-79 08:27:00* Test Item Value Reference Range Interpretation Comments Urine RBC (test code = 46876-6) 21-50 0-5 H [facility] CenterUrine Afdvypvw2022-09-73 08:27:00* Test Item Value Reference Range Interpretation Comments Urine Bacteria (test code = 34847-3) RARE NONE [facility] CenterUrine Epithelial Kdwzw0468-65-79 08:27:00 * Test Item Value Reference Range Interpretation Comments Urine Epithelial Cells (test code = 28499-8) FEW NONE [facility] CenterUrine Skkua3575-29-95 08:20:00* Test Item Value Reference Range Interpretation Comments Urine Color (test code = 5778-6) YELLOW YELLOW [facility] CenterUrine Vjzzdzx8044-39-62 08:20:00* Test Item Value Reference Range Interpretation Comments Urine Clarity (test code = 77207-3) SL CLOUDY CLEAR H [facility] CenterUrine Specific Oqglwwg6340-48-01 08:20:00 * Test Item Value Reference Range Interpretation Comments Urine Specific [place] (test code = 5811-5) 1.025 1.010-1.02 5 [facility] CenterUrine wA8566-43-63 08:20:00* Test Item Value Reference Range Interpretation Comments Urine pH (test code = 78549-0) 6 5-7 [facility] CenterUrine Leukocyte Xbwcrhhr1607-57-95 08:20:00* Test Item Value Reference Range Interpretation Comments Urine Leukocyte Esterase (test code = 06666-3) TRACE NEGATIV E H [facility] CenterUrine Sapzbyn2108-66-16 08:20:00* Test Item Value Reference Range Interpretation Comments Urine Nitrite (test code = 81419-5) NEGATIVE NEGATIVE [facility] CenterUrine Mpcbiuk4826-45-36 08:20:00* Test Item Value Reference Range Interpretation Comments Urine Protein (test code = 21138-9) 3+ NEGATIVE H [facility] CenterUrine Glucose (UA)2018-11-11 08:20:00* Test Item Value Reference Range Interpretation Comments Urine Glucose (UA) (test code = 98461-3) 1+ NEGATIVE H [facility] CenterUrine Tomfyqm1800-39-65 08:20:00* Test Item Value Reference Range Interpretation Comments Urine Ketones (test code = 44475-6) NEGATIVE NEGATIVE [facility] CenterUrine Plsmmvjcrtdw4375-49-03 08:20:00* Test Item Value Reference Range Interpretation Comments Urine Urobilinogen (test code = 71329-9) 0.2 0.2-1 [facility] CenterUrine Dhlbflrxx5034-16-41 08:20:00* Test Item Value Reference Range Interpretation Comments Urine Bilirubin (test code = 1977-8) NEGATIVE NEGATIVE [facility] CenterU[facility] Beeuu4837-14-50 08:20:00* Test Item Value Reference Range Interpretation Comments Urine Blood (test code = 33368-7) 3+ [facility]GATIVE [facility] Msqij4073-91-98 08:04:00* Test Item Value Reference Range Interpretation Comments Sodium Level (test code = 2951-2) 137 136-145 [facility] CenterPotassium Kccdd0943-78-27 08:04:00* Test Item Value Reference Range Interpretation Comments Potassium Level (test code = 2823-3) 4.8 3.5-5.1 [facility] CenterChloride Ywerv1036-76-15 08:04:00* Test Item Value Reference Range Interpretation Comments Chloride Level (test code = 2075-0) 109 98-107 H [facility] CenterCarbon Dioxide Vciuj4700-37-21 08:04:00* Test Item Value Reference Range Interpretation Comments Carbon Dioxide Level (test code = 2028-9) 18 22-29 L [facility] CenterAnion Myi2752-56-36 08:04:00* Test Item Value Reference Range Interpretation Comments Anion Gap (test code = 18497-2) 14.8 8-16 [facility] CenterBlood Urea Rzimitlm6095-67-06 08:04:00* Test Item Value Reference Range Interpretation Comments Blood Urea Nitrogen (test code = 3094-0) 35 7-26 H [facility] CenterCreatinine2019-09-19 08:04:00* Test Item Value Reference Range Interpretation Comments Creatinine (test code = 2160-0) 3.89 0.72-1.25 H [facility] CenterBUN/Creatinine Auzcs2836-19-02 08:04:00* Test Item Value Reference Range Interpretation Comments BUN/Creatinine Ratio (test code = 3097-3) 9 6-25 [facility] CenterEstimat Glomerular Filtration Rate 2018-11-11 08:04:00* Test Item Value Reference Range Interpretation Comments Estimat Glomerular Filtration Rate (test code = 174415391) 17 >60 L Ranges were taken from the National Kidney Disease Education Program and the [facility] literature.Reference ranges:60 or greater: Xfgvnh58-17 ( for 3 consecutive months): Chronic kidney disease 15 or less: Kidney failureBaptist Medical CenterGlucose Yfvxv9397-96-87 08:04:00* Test Item Value Reference Range Interpretation Comments Glucose Level (test code = ZOK6175) 146 74-118 H [facility] CenterCalcium Maggl2538-60-73 08:04:00* Test Item Value Reference Range Interpretation Comments Calcium Level (test code = 72845-8) 9.0 8.4-10.2 [facility] CenterTotal Echowaojo3980-42-28 08:04:00* Test Item Value Reference Range Interpretation Comments Total Bilirubin (test code = 1975-2) 0.6 0.2-1.2 [facility] CenterAspartate Amino Transf (AST/SGOT) 2018-11-11 08:04:00* Test Item Value Reference Range Interpretation Comments Aspartate Amino Transf (AST/SGOT) (test code = Aspartate Amino Transf (AST/SGOT)) 14 [facility] CenterAlanine Aminotransferase (ALT/SGPT) 2018-11-11 08:04:00* Test Item Value Reference Range Interpretation Comments Alanine Aminotransferase (ALT/SGPT) (test code = 1742-6) 9 0-55 [facility] CenterTotal Puicuja8966-55-97 08:04:00* Test Item Value Reference Range Interpretation Comments Total Protein (test code = 2885-2) 7.9 6.5-8.1 [facility] CenterAlbumin2019-09-19 08:04:00* Test Item Value Reference Range Interpretation Comments Albumin (test code = 1751-7) 3.2 3.5-5.0 L [facility] CenterGlobulin2019-09-19 08:04:00* Test Item Value Reference Range Interpretation Comments Globulin (test code = 92912-8) 4.7 2.3-3.5 H [facility] CenterAlbumin/Globulin Nxtzk0280-27-36 08:04:00 * Test Item Value Reference Range Interpretation Comments Albumin/Globulin Ratio (test code = 1759-0) 0.7 0.8-2.0 L [facility] CenterAlkaline Rmhhaerwygc1339-76-92 08:04:00* Test Item Value Reference Range Interpretation Comments Alkaline Phosphatase (test code = 6768-6) 202 40-150 H [facility] CenterTotal Auhwdcvik5187-44-92 08:04:00* Test Item Value Reference Range Interpretation Comments Total Bilirubin (test code = 1975-2) 0.6 0.2-1.2 [facility] CenterAspartate Amino Transf (AST/SGOT) 2018-11-11 08:04:00* Test Item Value Reference Range Interpretation Comments Aspartate Amino Transf (AST/SGOT) (test code = Aspartate Amino Transf (AST/SGOT)) 14 [facility] CenterAlanine Aminotransferase (ALT/SGPT) 2018-11-11 08:04:00* Test Item Value Reference Range Interpretation Comments Alanine Aminotransferase (ALT/SGPT) (test code = 1742-6) 9 0-55 [facility] CenterTotal Uxxjpxj1032-46-87 08:04:00* Test Item Value Reference Range Interpretation Comments Total Protein (test code = 2885-2) 7.9 6.5-8.1 [facility] CenterGlobulin2019-09-19 08:04:00* Test Item Value Reference Range Interpretation Comments Globulin (test code = 04434-7) 4.7 2.3-3.5 H [facility] CenterAlbumin/Globulin Nbmpw4516-86-09 08:04:00 * Test Item Value Reference Range Interpretation Comments Albumin/Globulin Ratio (test code = 1759-0) 0.7 0.8-2.0 L [facility] CenterAlkaline Ylzilogvjky7227-48-24 08:04:00* Test Item Value Reference Range Interpretation Comments Alkaline Phosphatase (test code = 6768-6) 202 40-150 [facility] Qbwoycmwe0085-26-45 08:04:00* Test Item Value Reference Range Interpretation Comments Total Bilirubin (test code = 1975-2) 0.6 0.2-1.2 [facility] CenterAspartate Amino Transf (AST/SGOT) 2018-11-11 08:04:00* Test Item Value Reference Range Interpretation Comments Aspartate Amino Transf (AST/SGOT) (test code = Aspartate Amino Transf (AST/SGOT)) 14 5-34 [facility] CenterAlanine Aminotransferase (ALT/SGPT) 2018-11-11 08:04:00* Test Item Value Reference Range Interpretation Comments Alanine Aminotransferase (ALT/SGPT) (test code = 1742-6) 9 0-55 [facility] Enhajfm7401-27-80 08:04:00* Test Item Value Reference Range Interpretation Comments Total Protein (test code = 2885-2) 7.9 6.5-8.1 [facility] CenterGlobulin2019-09-19 08:04:00* Test Item Value Reference Range Interpretation Comments Globulin (test code = 26010-5) 4.7 2.3-3.5 H [facility] CenterAlbumin/Globulin Xnlsg5690-22-64 08:04:00 * Test Item Value Reference Range Interpretation Comments Albumin/Globulin Ratio (test code = 1759-0) 0.7 0.8-2.0 L [facility] CenterAlkaline Bvyfxsmzjyu6586-39-15 08:04:00* Test Item Value Reference Range Interpretation Comments Alkaline Phosphatase (test code = 6768-6) 202 40-150 H [facility] CenterWhite Blood Spzhd1399-45-60 07:49:00* Test Item Value Reference Range Interpretation Comments White Blood Count (test code = 6690-2) 6.09 4.8-10.8 [facility] CenterRed Blood Nunem1346-24-99 07:49:00* Test Item Value Reference Range Interpretation Comments Red Blood Count (test code = 789-8) 4.56 4.3-5.7 [facility] CenterHemoglobin2019-09-19 07:49:00* Test Item Value Reference Range Interpretation Comments Hemoglobin (test code = 07825-8) 12.7 14.0-18.0 L [facility] CenterHematocrit2019-09-19 07:49:00* Test Item Value Reference Range Interpretation Comments Hematocrit (test code = 4544-3) 38.6 38.2-49.6 [facility] CenterMean Corpuscular Jxujfa1488-78-89 07:49:00* Test Item Value Reference Range Interpretation Comments Mean Corpuscular Volume (test code = 787-2) 84.6 81-99 [facility] CenterMean Corpuscular Vcodrfgwqa4181-41-26 07:49:00* Test Item Value Reference Range Interpretation Comments Mean Corpuscular Hemoglobin (test code = 785-6) 27.9 28-32 L [facility] CenterMean Corpuscular Hemoglobin Concent 2018-11-11 07:49:00* Test Item Value Reference Range Interpretation Comments Mean Corpuscular Hemoglobin Concent (test code = 786-4) 32.9 31-35 [facility] CenterRed Cell Distribution Ofukt7120-54-70 07:49:00* Test Item Value Reference Range Interpretation Comments Red Cell Distribution Width (test code = 98247-9) 15.5 11.7 -14.4 H [facility] CenterPlatelet Xulwp2063-34-80 07:49:00* Test Item Value Reference Range Interpretation Comments Platelet Count (test code = 777-3) 140 140-360 [facility] CenterNeutrophils (%) (Auto)2018-11-11 07:49:00 * Test Item Value Reference Range Interpretation Comments Neutrophils (%) (Auto) (test code = 70652-6) 74.1 38.7-80.0 [facility] CenterLymphocytes (%) (Auto)2018-11-11 07:49:00 * Test Item Value Reference Range Interpretation Comments Lymphocytes (%) (Auto) (test code = 736-9) 18.2 18.0-39.1 [facility] CenterMonocytes (%) (Auto)2018-11-11 07:49:00* Test Item Value Reference Range Interpretation Comments Monocytes (%) (Auto) (test code = 5905-5) 4.9 4.4-11.3 [facility] CenterEosinophils (%) (Auto)2018-11-11 07:49:00 * Test Item Value Reference Range Interpretation Comments Eosinophils (%) (Auto) (test code = 713-8) 2.0 0.0-6.0 [facility] CenterBasophils (%) (Auto)2018-11-11 07:49:00* Test Item Value Reference Range Interpretation Comments Basophils (%) (Auto) (test code = 706-2) 0.3 0.0-1.0 [facility] CenterIM GRANULOCYTES %2018-11-11 07:49:00* Test Item Value Reference Range Interpretation Comments IM GRANULOCYTES % (test code = IM GRANULOCYTES %) 0.5 0.0- 1.0 [facility] CenterNeutrophils # (Auto)2018-11-11 07:49:00* Test Item Value Reference Range Interpretation Comments Neutrophils # (Auto) (test code = 751-8) 4.5 2.1-6.9 [facility] CenterLymphocytes # (Auto)2018-11-11 07:49:00* Test Item Value Reference Range Interpretation Comments Lymphocytes # (Auto) (test code = 05728-9) 1.1 1.0-3.2 [facility] CenterMonocytes # (Auto)2018-11-11 07:49:00* Test Item Value Reference Range Interpretation Comments Monocytes # (Auto) (test code = 742-7) 0.3 0.2-0.8 [facility] CenterEosinophils # (Auto)2018-11-11 07:49:00* Test Item Value Reference Range Interpretation Comments Eosinophils # (Auto) (test code = 711-2) 0.1 0.0-0.4 [facility] CenterBasophils # (Auto)2018-11-11 07:49:00* Test Item Value Reference Range Interpretation Comments Basophils # (Auto) (test code = 704-7) 0.0 0.0-0.1 [facility] CenterAbsolute Immature Granulocyte (auto 2018-11-11 07:49:00* Test Item Value Reference Range Interpretation Comments Absolute Immature Granulocyte (auto (shin t code = Absolute Immature Granulocyte (auto) 0.03 0-0.1 [facility] CenterFluoroscopic procedure less than one hour yncmrbqk1515-71-09 07:22:00* Test Item Value Reference Range Interpretation Comments Differential Total Cells Counted (test code = Differomar tial Total Cells Counted) 100 [facility] blood neutrophils/100 leukocytes 2018-11-11 07:22:00* Test Item Value Reference Range Interpretation Comments Neutrophils % (Manual) (test code = 45184-2) 74 40-74 [facility] blood lymphocytes/100 leukocytes 2018-11-11 07:22:00* Test Item Value Reference Range Interpretation Comments Lymphocytes % (Manual) (test code = 737-7) 19 19-48 [facility] blood monocytes/100 leukocytes 2018-11-11 07:22:00* Test Item Value Reference Range Interpretation Comments Monocytes % (Manual) (test code = 744-3) 5 3.4-9.0 [facility] Center[facility] blood eosinophil count as percentage of total ndwmlphpey9606-23-21 07:22:00* Test Item Value Reference Range Interpretation Comments Eosinophils % (Manual) (test code = 714-6) 2 0-7 [facility] CenterBlood platelets count by estimate (number/volume)2018-11-11 07:22:00* Test Item Value Reference Range Interpretation Comments Platelet Estimate (test code = 15536-6) MODERATELY DECREASED [facility] CenterPlatelet ycafeliaam7306-27-44 07:22:00* Test Item Value Reference Range Interpretation Comments Platelet Morphology Comment (test code = 34036-5) FEW LARGE NO PLT CLUMPSBaptist Medical CenterRBC prcmqouwny3016-99-04 07:22:00* Test Item Value Reference Range Interpretation Comments Red Cell Morphology Comment (test code = 6742-1) NORMAL [facility] Iroaoxo4807-92-94 07:37:00* Test Item Value Reference Range Interpretation Comments Bedside Glucose (test code = 70166-1) 160 70-120 H Meter ID: [id number] Glucose 2018-11-08 07:37:00* Test Item Value Reference Range Interpretation Comments Bedside Glucose (test code = 20889-2) 160 70-120 H Meter ID: [id number] Medical CenterDifferential Total Cells Mcsaaxf7005-94-75 06:23:00* Test Item Value Reference Range Interpretation Comments Differential Total Cells Counted (test code = Differomar tial Total Cells Counted) 100 [facility] CenterNeutrophils % (Manual)2018-11-08 06:23:00 * Test Item Value Reference Range Interpretation Comments Neutrophils % (Manual) (test code = 48042-4) 71 40-74 [facility] CenterLymphocytes % (Manual)2018-11-08 06:23:00 * Test Item Value Reference Range Interpretation Comments Lymphocytes % (Manual) (test code = 737-7) 17 19-48 L [facility] CenterMonocytes % (Manual)2018-11-08 06:23:00* Test Item Value Reference Range Interpretation Comments Monocytes % (Manual) (test code = 744-3) 9 3.4-9.0 [facility] CenterEosinophils % (Manual)2018-11-08 06:23:00 * Test Item Value Reference Range Interpretation Comments Eosinophils % (Manual) (test code = 714-6) 3 0-7 [facility] CenterPlatelet Wrmgfmkd8245-20-26 06:23:00* Test Item Value Reference Range Interpretation Comments Platelet Estimate (test code = 52491-7) MARKEDLY INCREASED [facility] CenterPlatelet Morphology Ddnpjrj9205-30-81 06:23:00* Test Item Value Reference Range Interpretation Comments Platelet Morphology Comment (test code = 49966-5) FEW LARGE [facility] CenterRed Cell Morphology Zcbkdfh8045-79-84 06:23:00* Test Item Value Reference Range Interpretation Comments Red Cell Morphology Comment (test code = 6742-1) [facility]AL [facility] Nhxzg1350-62-48 05:37:00* Test Item Value Reference Range Interpretation Comments Sodium Level (test code = 2951-2) 135 136-145 L [facility] CenterPotassium Mgfll3117-60-43 05:37:00* Test Item Value Reference Range Interpretation Comments Potassium Level (test code = 2823-3) 4.6 3.5-5.1 [facility] CenterChloride Fqtsx6358-85-52 05:37:00* Test Item Value Reference Range Interpretation Comments Chloride Level (test code = 2075-0) 106 98-107 [facility] CenterCarbon Dioxide Ugter4090-74-69 05:37:00* Test Item Value Reference Range Interpretation Comments Carbon Dioxide Level (test code = 2028-9) 19 22-29 L [facility] CenterAnion Hco0524-33-50 05:37:00* Test Item Value Reference Range Interpretation Comments Anion Gap (test code = 37859-8) 14.6 8-16 [facility] CenterBlood Urea Tqckfloi0853-88-13 05:37:00* Test Item Value Reference Range Interpretation Comments Blood Urea Nitrogen (test code = 3094-0) 30 7-26 H [facility] CenterCreatinine2019-09-16 05:37:00* Test Item Value Reference Range Interpretation Comments Creatinine (test code = 2160-0) 3.35 0.72-1.25 H [facility] CenterBUN/Creatinine Wzyzd8158-77-38 05:37:00* Test Item Value Reference Range Interpretation Comments BUN/Creatinine Ratio (test code = 3097-3) 9 6-25 [facility] CenterEstimat Glomerular Filtration Rate 2018-11-08 05:37:00* Test Item Value Reference Range Interpretation Comments Estimat Glomerular Filtration Rate (test code = 091108092) 21 >60 L Ranges were taken from the National Kidney Disease Education Program and the [facility] Kidney Foundation literature.Reference ranges:60 or greater: Mepcjf04-21 ( for 3 consecutive months): Chronic kidney disease 15 or less: Kidney failureBaptist Medical CenterGlucose Dekkx5263-98-86 05:37:00* Test Item Value Reference Range Interpretation Comments Glucose Level (test code = QBO5399) 125 74-118 H [facility] CenterCalcium Ijzum6700-11-76 05:37:00* Test Item Value Reference Range Interpretation Comments Calcium Level (test code = 58177-8) 8.4 8.4-10.2 [facility] CenterWhite Blood Szyvn6139-36-28 05:26:00* Test Item Value Reference Range Interpretation Comments White Blood Count (test code = 6690-2) 4.49 4.8-10.8 L [facility] CenterRed Blood Zwlog9269-18-26 05:26:00* Test Item Value Reference Range Interpretation Comments Red Blood Count (test code = 789-8) 3.94 4.3-5.7 L [facility] CenterHemoglobin2019-09-16 05:26:00* Test Item Value Reference Range Interpretation Comments Hemoglobin (test code = 24571-1) 11.0 14.0-18.0 L [facility] CenterHematocrit2019-09-16 05:26:00* Test Item Value Reference Range Interpretation Comments Hematocrit (test code = 4544-3) 34.1 38.2-49.6 L [facility] CenterMean Corpuscular Uisyjh8305-55-90 05:26:00* Test Item Value Reference Range Interpretation Comments Mean Corpuscular Volume (test code = 787-2) 86.5 81-99 [facility] CenterMean Corpuscular Yeimiwlzee4978-40-54 05:26:00* Test Item Value Reference Range Interpretation Comments Mean Corpuscular Hemoglobin (test code = 785-6) 27.9 28-32 L [facility] CenterMean Corpuscular Hemoglobin Concent 2018-11-08 05:26:00* Test Item Value Reference Range Interpretation Comments Mean Corpuscular Hemoglobin Concent (test code = 786-4) 32.3 31-35 [facility] CenterRed Cell Distribution Ksndl8345-57-39 05:26:00* Test Item Value Reference Range Interpretation Comments Red Cell Distribution Width (test code = 86072-1) 15.9 11.7 -14.4 H [facility] CenterPlatelet Jsbwx2289-99-74 05:26:00* Test Item Value Reference Range Interpretation Comments Platelet Count (test code = 777-3) 101 140-360 L [facility] CenterNeutrophils (%) (Auto)2018-11-08 05:26:00 * Test Item Value Reference Range Interpretation Comments Neutrophils (%) (Auto) (test code = 76061-6) 59.0 38.7-80.0 [facility] CenterLymphocytes (%) (Auto)2018-11-08 05:26:00 * Test Item Value Reference Range Interpretation Comments Lymphocytes (%) (Auto) (test code = 736-9) 27.4 18.0-39.1 [facility] CenterMonocytes (%) (Auto)2018-11-08 05:26:00* Test Item Value Reference Range Interpretation Comments Monocytes (%) (Auto) (test code = 5905-5) 7.6 4.4-11.3 [facility] CenterEosinophils (%) (Auto)2018-11-08 05:26:00 * Test Item Value Reference Range Interpretation Comments Eosinophils (%) (Auto) (test code = 713-8) 4.9 0.0-6.0 [facility] CenterBasophils (%) (Auto)2018-11-08 05:26:00* Test Item Value Reference Range Interpretation Comments Basophils (%) (Auto) (test code = 706-2) 0.7 0.0-1.0 [facility] CenterIM GRANULOCYTES %2018-11-08 05:26:00* Test Item Value Reference Range Interpretation Comments IM GRANULOCYTES % (test code = IM GRANULOCYTES %) 0.4 0.0- 1.0 [facility] CenterNeutrophils # (Auto)2018-11-08 05:26:00* Test Item Value Reference Range Interpretation Comments Neutrophils # (Auto) (test code = 751-8) 2.7 2.1-6.9 [facility] CenterLymphocytes # (Auto)2018-11-08 05:26:00* Test Item Value Reference Range Interpretation Comments Lymphocytes # (Auto) (test code = 26831-4) 1.2 1.0-3.2 [facility] CenterMonocytes # (Auto)2018-11-08 05:26:00* Test Item Value Reference Range Interpretation Comments Monocytes # (Auto) (test code = 742-7) 0.3 0.2-0.8 [facility] CenterEosinophils # (Auto)2018-11-08 05:26:00* Test Item Value Reference Range Interpretation Comments Eosinophils # (Auto) (test code = 711-2) 0.2 0.0-0.4 [facility] CenterBasophils # (Auto)2018-11-08 05:26:00* Test Item Value Reference Range Interpretation Comments Basophils # (Auto) (test code = 704-7) 0.0 0.0-0.1 [facility] CenterAbsolute Immature Granulocyte (auto 2018-11-08 05:26:00* Test Item Value Reference Range Interpretation Comments Absolute Immature Granulocyte (auto (shin t code = Absolute Immature Granulocyte (auto) 0.02 0-0.1 [facility] CenterMagnesium Jbrmj6285-46-40 07:21:00* Test Item Value Reference Range Interpretation Comments Magnesium Level (test code = 77292-6) 1.5 1.3-2.1 [facility] CenterMagnesium Ihzuo2102-07-52 07:21:00* Test Item Value Reference Range Interpretation Comments Magnesium Level (test code = 37474-6) 1.5 1.3-2.1 [facility] CenterTotal Xwpdefyli1759-02-72 08:37:00* Test Item Value Reference Range Interpretation Comments Total Bilirubin (test code = 1975-2) 0.5 0.2-1.2 [facility] CenterAspartate Amino Transf (AST/SGOT) 2018-11-05 08:37:00* Test Item Value Reference Range Interpretation Comments Aspartate Amino Transf (AST/SGOT) (test code = Aspartate Amino Transf (AST/SGOT)) 12 5-34 [facility] CenterAlanine Aminotransferase (ALT/SGPT) 2018-11-05 08:37:00* Test Item Value Reference Range Interpretation Comments Alanine Aminotransferase (ALT/SGPT) (test code = 1742-6) 14 0-55 [facility] CenterTotal Yftwxxe5859-77-61 08:37:00* Test Item Value Reference Range Interpretation Comments Total Protein (test code = 2885-2) 7.3 6.5-8.1 [facility] CenterAlbumin2019-09-13 08:37:00* Test Item Value Reference Range Interpretation Comments Albumin (test code = 1751-7) 3.0 3.5-5.0 L [facility] CenterGlobulin2019-09-13 08:37:00* Test Item Value Reference Range Interpretation Comments Globulin (test code = 45893-9) 4.3 2.3-3.5 H [facility] CenterAlbumin/Globulin Ujnob3309-68-80 08:37:00 * Test Item Value Reference Range Interpretation Comments Albumin/Globulin Ratio (test code = 1759-0) 0.7 0.8-2.0 L [facility] CenterAlkaline Tpvypsvbgjl2371-42-60 08:37:00* Test Item Value Reference Range Interpretation Comments Alkaline Phosphatase (test code = 6768-6) 200 40-150 [facility] Odqikxl6362-22-45 05:38:00* Test Item Value Reference Range Interpretation Comments Blood Culture (test code = 73088267) NO GROWTH AFTER 5 DAYS, FINAL REPORT [facility] Arvqzmc3843-90-87 05:38:00* Test Item Value Reference Range Interpretation Comments Blood Culture (test code = 60675319) NO GROWTH AFTER 5 DAYS, FINAL REPORT [facility] Gzshhns1554-03-77 05:38:00* Test Item Value Reference Range Interpretation Comments Blood Culture (test code = 49013922) NO GROWTH AFTER 5 DAYS, FINAL REPORT [facility] Chintie0197-06-97 05:38:00* Test Item Value Reference Range Interpretation Comments Blood Culture (test code = 72584552) NO GROWTH AFTER 5 DAYS, FINAL REPORT [facility] CenterPhosphorus Znubo5324-09-43 05:51:00* Test Item Value Reference Range Interpretation Comments Phosphorus Level (test code = ZWJ9282) 5.4 2.3-4.7 H [facility] CenterPhosphorus Ajpgz0495-79-91 05:51:00* Test Item Value Reference Range Interpretation Comments Phosphorus Level (test code = SQH3803) 5.4 2.3-4.7 H [facility] CenterIron Swfbs1124-58-18 06:18:00* Test Item Value Reference Range Interpretation Comments Iron Level (test code = 2498-4) 50 65-175 L [facility] CenterTotal Iron Binding Apyehdqc8384-64-63 06:18:00* Test Item Value Reference Range Interpretation Comments Total Iron Binding Capacity (test code = 2500-7) 232 261-4 78 L [facility] CenterPercent Iron Hrglgbdzkp6757-02-58 06:18:00* Test Item Value Reference Range Interpretation Comments Percent Iron Saturation (test code = 2502-3) 22 15-50 [facility]2019-09-09 06:18:00* Test Item Value Reference Range Interpretation Comments Transferrin (test code = 3034-6) 166 174-364 L [facility]2019-09-09 06:18:00* Test Item Value Reference Range Interpretation Comments Iron Level (test code = 2498-4) 50 65-175 [facility] Iron Binding Huzxowcc4469-32-56 06:18:00* Test Item Value Reference Range Interpretation Comments Total Iron Binding Capacity (test code = 2500-7) 232 261-4 78 L [facility] Iron Pfoeaxqebb9687-96-58 06:18:00* Test Item Value Reference Range Interpretation Comments Percent Iron Saturation (test code = 2502-3) 22 15-50 [facility]2019-09-09 06:18:00* Test Item Value Reference Range Interpretation Comments Transferrin (test code = 3034-6) 166 174-364 L [facility]2019-09-09 06:18:00* Test Item Value Reference Range Interpretation Comments Iron Level (test code = 2498-4) 50 65-175 [facility] Iron Binding Mpgiupty7892-01-04 06:18:00* Test Item Value Reference Range Interpretation Comments Total Iron Binding Capacity (test code = 2500-7) 232 261-4 78 L [facility] Iron Ynqstfimod8304-24-08 06:18:00* Test Item Value Reference Range Interpretation Comments Percent Iron Saturation (test code = 2502-3) 22 15-50 [facility]2019-09-09 06:18:00* Test Item Value Reference Range Interpretation Comments Transferrin (test code = 3034-6) 166 174-364 L [facility]2019-09-09 06:18:00* Test Item Value Reference Range Interpretation Comments Iron Level (test code = 2498-4) 50 65-175 L [facility] CenterTotal Iron Binding Qujzpbku9890-21-61 06:18:00* Test Item Value Reference Range Interpretation Comments Total Iron Binding Capacity (test code = 2500-7) 232 261-4 78 L [facility] CenterPercent Iron Ijbdxsckcu7072-07-90 06:18:00* Test Item Value Reference Range Interpretation Comments Percent Iron Saturation (test code = 2502-3) 22 15-50 [facility] CenterTransferrin2019-09-09 06:18:00* Test Item Value Reference Range Interpretation Comments Transferrin (test code = 3034-6) 166 174-364 L [facility] CenterUrine VZR0927-39-05 15:35:00* Test Item Value Reference Range Interpretation Comments Urine WBC (test code = 5821-4) >50 0-5 H [facility] CenterUrine FUR4411-12-50 15:35:00* Test Item Value Reference Range Interpretation Comments Urine RBC (test code = 58265-4) >50 0-5 H [facility] CenterUrine Sakebgpw1552-31-58 15:35:00* Test Item Value Reference Range Interpretation Comments Urine Bacteria (test code = 03112-3) MANY NONE H [facility] CenterUrine Epithelial Ocilm9979-77-37 15:35:00 * Test Item Value Reference Range Interpretation Comments Urine Epithelial Cells (test code = 72250-2) MANY NONE [facility] CenterUrine Nrorn5234-04-08 15:11:00* Test Item Value Reference Range Interpretation Comments Urine Color (test code = 5778-6) YELLOW YELLOW [facility] CenterUrine Sokhgvt4561-52-77 15:11:00* Test Item Value Reference Range Interpretation Comments Urine Clarity (test code = 94645-0) SL CLOUDY CLEAR H [facility] CenterUrine Specific Xyqqnwy4608-40-74 15:11:00 * Test Item Value Reference Range Interpretation Comments Urine Specific [place] (test code = 5811-5) 1.025 1.010-1.02 5 [facility] CenterUrine nH7140-78-63 15:11:00* Test Item Value Reference Range Interpretation Comments Urine pH (test code = 84307-8) 6 5-7 [facility] CenterUrine Leukocyte Poqvrkkf5207-11-36 15:11:00* Test Item Value Reference Range Interpretation Comments Urine Leukocyte Esterase (test code = 85181-5) NEGATIVE NEGATIV E [facility] CenterUrine Zzbkjbu5387-44-27 15:11:00* Test Item Value Reference Range Interpretation Comments Urine Nitrite (test code = 74202-0) NEGATIVE NEGATIVE [facility] CenterUrine Nwtlmzt3145-68-89 15:11:00* Test Item Value Reference Range Interpretation Comments Urine Protein (test code = 41123-3) 3+ NEGATIVE H [facility] Glucose (UA)2018-10-31 15:11:00* Test Item Value Reference Range Interpretation Comments Urine Glucose (UA) (test code = 47389-7) NEGATIVE NEGATIVE [facility] CenterUrine Ifzuozj8939-61-98 15:11:00* Test Item Value Reference Range Interpretation Comments Urine Ketones (test code = 36231-2) NEGATIVE NEGATIVE [facility] Dxxgumbwtags4982-98-02 15:11:00* Test Item Value Reference Range Interpretation Comments Urine Urobilinogen (test code = 99032-4) 0.2 0.2-1 [facility] CenterUrine Waavahsyp8844-68-90 15:11:00* Test Item Value Reference Range Interpretation Comments Urine Bilirubin (test code = 1977-8) NEGATIVE NEGATIVE [facility] CenterUrine Uxdzt9986-95-77 15:11:00* Test Item Value Reference Range Interpretation Comments Urine Blood (test code = 19269-6) 3+ NEGATIVE [facility] CenterCreatine Kinase RD5471-82-97 08:40:00* Test Item Value Reference Range Interpretation Comments Creatine Kinase MB (test code = 47010-6) 1.60 0-5.0 [facility] CenterTroponin T7542-54-24 08:40:00* Test Item Value Reference Range Interpretation Comments Troponin I (test code = JQD8128) 0.008 0-0.300 [facility] CenterCreatine Kinase FI9082-81-25 08:40:00* Test Item Value Reference Range Interpretation Comments Creatine Kinase MB (test code = 47979-9) 1.60 0-5.0 [place] 22807019-09-08 08:40:00* Test Item Value Reference Range Interpretation Comments Troponin I (test code = XOM7933) 0.008 0-0.300 [facility] CenterCreatine Kinase NR4828-60-69 08:40:00* Test Item Value Reference Range Interpretation Comments Creatine Kinase MB (test code = 89625-9) 1.60 0-5.0 [place] 22807019-09-08 08:40:00* Test Item Value Reference Range Interpretation Comments Troponin I (test code = YFA1635) 0.008 0-0.300 [facility] Kinase JC5001-28-27 08:40:00* Test Item Value Reference Range Interpretation Comments Creatine Kinase MB (test code = 01940-5) 1.60 0-5.0 [place] 22807019-09-08 08:40:00* Test Item Value Reference Range Interpretation Comments Troponin I (test code = LWE6406) 0.008 0-0.300 [facility] Kinase QA8733-39-98 08:40:00* Test Item Value Reference Range Interpretation Comments Creatine Kinase MB (test code = 46270-9) 1.60 0-5.0 [place] 22807019-09-08 08:40:00* Test Item Value Reference Range Interpretation Comments Troponin I (test code = VEB8769) 0.008 0-0.300 [facility] CenterCreatine Kinase QK6610-71-09 08:40:00* Test Item Value Reference Range Interpretation Comments Creatine Kinase MB (test code = 54160-7) 1.60 0-5.0 [place] 816869-09-08 08:40:00* Test Item Value Reference Range Interpretation Comments Troponin I (test code = 13264-6) 0.008 0-0.300 [facility] CenterCreatine Kinase WQ5284-99-28 08:40:00* Test Item Value Reference Range Interpretation Comments Creatine Kinase MB (test code = 05160-0) 1.60 0-5.0 [facility] CenterTroponin R5505-89-39 08:40:00* Test Item Value Reference Range Interpretation Comments Troponin I (test code = 55959-6) 0.008 0-0.300 [facility] CenterCreatine Yfuqoq7522-08-60 07:55:00* Test Item Value Reference Range Interpretation Comments Creatine Kinase (test code = 2157-6) 266 30-200 H [facility] CenterCreatine Djefam1052-80-54 07:55:00* Test Item Value Reference Range Interpretation Comments Creatine Kinase (test code = 2157-6) 266 30-200 H [facility] CenterCreatine Ddykqo6340-07-88 07:55:00* Test Item Value Reference Range Interpretation Comments Creatine Kinase (test code = 2157-6) 266 30-200 H [facility] CenterCreatine Brzcrf7502-19-88 07:55:00* Test Item Value Reference Range Interpretation Comments Creatine Kinase (test code = 2157-6) 266 30-200 H [facility] CenterCreatine Eaaylu7709-92-26 07:55:00* Test Item Value Reference Range Interpretation Comments Creatine Kinase (test code = 2157-6) 266 30-200 H [facility] CenterCreatine Unbgoe7239-86-00 07:55:00* Test Item Value Reference Range Interpretation Comments Creatine Kinase (test code = 2157-6) 266 30-200 H [facility] CenterCreatine Eekazp9848-55-77 07:55:00* Test Item Value Reference Range Interpretation Comments Creatine Kinase (test code = 2157-6) 266 30-200 H [facility] CenterCT ABDOMEN/PELVIS WC7337-88-98 02:46:00 [place] [address] Patient Name: MANJIT LUO MR #: [id number] : 1980 Age/Sex: 38/M Req #: [id number] [facility] Physician: Ordered by: BEV FLORES MD Report #: [id number] Location: ER Room/Bed: Procedure: CT/CT ABDOMEN/PELVIS WO Exam Date: 10/31/18 Exam Cm e: 021 REPORT STATUS: Signed CT Abdomen and Pelvis [...] 10/31/18252 COPY TO: BEV FLORES MD Bedside Ncmvhho5945-94-45 07:32:00* Test Item Value Reference Range Interpretation Comments Bedside Glucose (test code = 14339-3) 106 70-120 Meter ID: [id number]ium Level 2018-10-29 07:01:00* Test Item Value Reference Range Interpretation Comments Sodium Level (test code = 2951-2) 138 136-145 [facility] CenterPotassium Lextu1165-06-52 07:01:00* Test Item Value Reference Range Interpretation Comments Potassium Level (test code = 2823-3) 4.5 3.5-5.1 [facility] CenterChloride Srvxi5433-05-33 07:01:00* Test Item Value Reference Range Interpretation Comments Chloride Level (test code = 2075-0) 103 98-107 [facility] CenterCarbon Dioxide Ddaeq9513-86-00 07:01:00* Test Item Value Reference Range Interpretation Comments Carbon Dioxide Level (test code = 2028-9) 24 22-29 [facility] CenterAnion Jje1811-04-23 07:01:00* Test Item Value Reference Range Interpretation Comments Anion Gap (test code = 19163-3) 15.5 8-16 [facility] CenterBlood Urea Ljryvrms7903-01-07 07:01:00* Test Item Value Reference Range Interpretation Comments Blood Urea Nitrogen (test code = 3094-0) 29 7-26 H [facility] CenterCreatinine2019-09-06 07:01:00* Test Item Value Reference Range Interpretation Comments Creatinine (test code = 2160-0) 3.71 0.72-1.25 H [facility] CenterBUN/Creatinine Pnjuz4519-76-65 07:01:00* Test Item Value Reference Range Interpretation Comments BUN/Creatinine Ratio (test code = 3097-3) 8 6-25 [facility] CenterEstimat Glomerular Filtration Rate 2018-10-29 07:01:00* Test Item Value Reference Range Interpretation Comments Estimat Glomerular Filtration Rate (test code = 481760225) 18 >60 L Ranges were taken from the National Kidney Disease Education Program and the [facility] Foundation literature.Reference ranges:60 or greater: Okptmm08-39 ( for 3 consecutive months): Chronic kidney disease 15 or less: Kidney failureBaptist Medical CenterGlucose Cncpd5666-10-49 07:01:00* Test Item Value Reference Range Interpretation Comments Glucose Level (test code = PML6036) 104 74-118 [facility] CenterCalcium Jxywt6463-55-40 07:01:00* Test Item Value Reference Range Interpretation Comments Calcium Level (test code = 11766-1) 8.2 8.4-10.2 L [facility] CenterWhite Blood Utsqx8485-58-79 06:31:00* Test Item Value Reference Range Interpretation Comments White Blood Count (test code = 6690-2) 5.14 4.8-10.8 [facility] CenterRed Blood Ccimk2158-29-20 06:31:00* Test Item Value Reference Range Interpretation Comments Red Blood Count (test code = 789-8) 3.56 4.3-5.7 L [facility] CenterHemoglobin2019-09-06 06:31:00* Test Item Value Reference Range Interpretation Comments Hemoglobin (test code = 27152-8) 9.8 14.0-18.0 L [facility] [facility] CenterHematocrit2019-[facility] 06:31:00* Test Item Value Reference Range Interpretation Comments Hematocrit (test code = 4544-3) 30.4 38.2-49.6 L [facility] CenterMean Corpuscular Czgixo2829-32-04 06:31:00* Test Item Value Reference Range Interpretation Comments Mean Corpuscular Volume (test code = 787-2) 85.4 81-99 [facility]Mean Corpuscular Bgepvwvjna3169-87-74 06:31:00* Test Item Value Reference Range Interpretation Comments Mean Corpuscular Hemoglobin (test code = 785-6) 27.5 28-32 L [facility] CenterMean Corpuscular Hemoglobin Concent 2018-10-29 06:31:00* Test Item Value Reference Range Interpretation Comments Mean Corpuscular Hemoglobin Concent (test code = 786-4) 32.2 31-35 [facility] CenterRed Cell Distribution Ldqbi2333-74-26 06:31:00* Test Item Value Reference Range Interpretation Comments Red Cell Distribution Width (test code = 82790-6) 15.0 11.7 -14.4 H [facility] CenterPlatelet Ricxr2499-78-72 06:31:00* Test Item Value Reference Range Interpretation Comments Platelet Count (test code = 777-3) 103 140-360 L [facility] CenterNeutrophils (%) (Auto)2018-10-29 06:31:00 * Test Item Value Reference Range Interpretation Comments Neutrophils (%) (Auto) (test code = 22336-5) 56.2 38.7-80.0 [facility] CenterLymphocytes (%) (Auto)2018-10-29 06:31:00 * Test Item Value Reference Range Interpretation Comments Lymphocytes (%) (Auto) (test code = 736-9) 33.7 18.0-39.1 [facility] CenterMonocytes (%) (Auto)2018-10-29 06:31:00* Test Item Value Reference Range Interpretation Comments Monocytes (%) (Auto) (test code = 5905-5) 6.2 4.4-11.3 [facility] CenterEosinophils (%) (Auto)2018-10-29 06:31:00 * Test Item Value Reference Range Interpretation Comments Eosinophils (%) (Auto) (test code = 713-8) 2.7 0.0-6.0 [facility] CenterBasophils (%) (Auto)2018-10-29 06:31:00* Test Item Value Reference Range Interpretation Comments Basophils (%) (Auto) (test code = 706-2) 0.4 0.0-1.0 [facility] CenterIM GRANULOCYTES %2018-10-29 06:31:00* Test Item Value Reference Range Interpretation Comments IM GRANULOCYTES % (test code = IM GRANULOCYTES %) 0.8 0.0- 1.0 [facility] CenterNeutrophils # (Auto)2018-10-29 06:31:00* Test Item Value Reference Range Interpretation Comments Neutrophils # (Auto) (test code = 751-8) 2.9 2.1-6.9 [facility] CenterLymphocytes # (Auto)2018-10-29 06:31:00* Test Item Value Reference Range Interpretation Comments Lymphocytes # (Auto) (test code = 59507-0) 1.7 1.0-3.2 [facility] CenterMonocytes # (Auto)2018-10-29 06:31:00* Test Item Value Reference Range Interpretation Comments Monocytes # (Auto) (test code = 742-7) 0.3 0.2-0.8 [facility] CenterEosinophils # (Auto)2018-10-29 06:31:00* Test Item Value Reference Range Interpretation Comments Eosinophils # (Auto) (test code = 711-2) 0.1 0.0-0.4 [facility] CenterBasophils # (Auto)2018-10-29 06:31:00* Test Item Value Reference Range Interpretation Comments Basophils # (Auto) (test code = 704-7) 0.0 0.0-0.1 [facility] CenterAbsolute Immature Granulocyte (auto 2018-10-29 06:31:00* Test Item Value Reference Range Interpretation Comments Absolute Immature Granulocyte (auto (shin t code = Absolute Immature Granulocyte (auto) 0.04 0-0.1 [facility] Occult Pqsla8572-07-50 16:26:00* Test Item Value Reference Range Interpretation Comments Stool Occult Blood (test code = 2335-8) NEGATIVE NEGATIVE [facility] Occult Jdvqy3292-17-85 16:26:00* Test Item Value Reference Range Interpretation Comments Stool Occult Blood (test code = 2335-8) NEGATIVE NEGATIVE [facility] Occult Skcmt0540-39-77 16:26:00* Test Item Value Reference Range Interpretation Comments Stool Occult Blood (test code = 2335-8) NEGATIVE NEGATIVE [facility] Occult Lylpx9666-30-72 16:26:00* Test Item Value Reference Range Interpretation Comments Stool Occult Blood (test code = 2335-8) NEGATIVE NEGATIVE [facility] Occult Sbiht2272-97-67 16:26:00* Test Item Value Reference Range Interpretation Comments Stool Occult Blood (test code = 2335-8) NEGATIVE NEGATIVE [facility] Occult Uomyl4518-38-69 16:26:00* Test Item Value Reference Range Interpretation Comments Stool Occult Blood (test code = 2335-8) NEGATIVE NEGATIVE [facility] Occult Gasfp0464-54-83 16:26:00* Test Item Value Reference Range Interpretation Comments Stool Occult Blood (test code = 2335-8) NEGATIVE NEGATIVE [facility] Occult Ujmnk6135-86-18 16:26:00* Test Item Value Reference Range Interpretation Comments Stool Occult Blood (test code = 2335-8) NEGATIVE NEGATIVE [facility] gastrointestinal hemoglobin jclyhudxp3147-12-79 15:53:00* Test Item Value Reference Range Interpretation Comments Stool Occult Blood (test code = 2335-8) NEGATIVE NEGATIVE [facility] CenterUrine Zkbiilc5471-94-02 07:43:00* Test Item Value Reference Range Interpretation Comments Urine Culture (test code = 630-4) Organism: PSEUDOMONAS AERUGINOSA [facility] Vmqtvfg0919-17-35 07:43:00* Test Item Value Reference Range Interpretation Comments Urine Culture (test code = 630-4) Organism: PSEUDOMONAS AERUGINOSA [facility] Obntwnv2484-01-74 07:43:00* Test Item Value Reference Range Interpretation Comments Urine Culture (test code = 630-4) Organism: PSEUDOMONAS AERUGINOSA [facility] CenterUrine Nzhqnza1470-37-42 07:43:00* Test Item Value Reference Range Interpretation Comments Urine Culture (test code = 630-4) No Result Data Provided [facility] CenterUrine Axmcmwo5119-08-97 07:43:00* Test Item Value Reference Range Interpretation Comments Urine Culture (test code = 630-4) No Result Data Provided [facility] CenterRENAL SCAN W/STATY3807-27-09 17:45:00 [place] [address] Patient Name: MANJIT LUO MR #: [id number] : 1980 Age/Sex: 38/M Req #: [id number] Adm Physician: ABHIJIT YODER MD Ordered by: TONY MAY MD Report #: [id number] Location: [facility] Room/Bed: [facility] Procedure: [id number] NM/RE NAL SCAN W/LASIX Exam Date: Exam [...] 6:04 PM Dictated By: YULY PERALTA MD [facility] Signed By: YULY PERALTA MD on 10/21/181803 Transcribed By: TIFFANY on 1803 COPY TO: TONY MAY MD Urine Pfjcsrw5872-07-21 14:00:00* Test Item Value Reference Range Interpretation Comments Urine Culture (test code = 630-4) Organism: STAPHYLOCOCCUS AUREUS [facility] CenterUrine Ekchwxe3893-71-07 14:00:00* Test Item Value Reference Range Interpretation Comments Urine Culture (test code = 630-4) Organism: STAPHYLOCOCCUS AUREUS [facility] CenterUrine Xdzbnen3888-25-45 14:00:00* Test Item Value Reference Range Interpretation Comments Urine Culture (test code = 630-4) Organism: STAPHYLOCOCCUS AUREUS [facility] CenterUrine Izwxncx4550-69-35 14:00:00* Test Item Value Reference Range Interpretation Comments Urine Culture (test code = 630-4) No Result Data Provided [facility] CenterUrine Hcdgdgf9391-48-16 14:00:00* Test Item Value Reference Range Interpretation Comments Urine Culture (test code = 630-4) No Result Data Provided [facility] CenterFerritin2019-08-27 06:53:00* Test Item Value Reference Range Interpretation Comments Ferritin (test code = 2276-4) 242.22 21.81-274.66 [facility] CenterFerritin2019-08-27 06:53:00* Test Item Value Reference Range Interpretation Comments Ferritin (test code = 2276-4) 242.22 21.81-274.66 [facility] CenterFerritin2019-08-27 06:53:00* Test Item Value Reference Range Interpretation Comments Ferritin (test code = 2276-4) 242.22 21.81-274.66 [facility] CenterMagnesium Lphix0193-63-29 06:25:00* Test Item Value Reference Range Interpretation Comments Magnesium Level (test code = 08618-6) 1.2 1.3-2.1 L [facility] CenterIron Macwr6177-84-75 06:25:00* Test Item Value Reference Range Interpretation Comments Iron Level (test code = 2498-4) 66 65-175 [facility] CenterTotal Iron Binding Mhwtqbwl6863-11-05 06:25:00* Test Item Value Reference Range Interpretation Comments Total Iron Binding Capacity (test code = 2500-7) 197 261-4 78 L [facility] CenterPercent Iron Eiiicxovxn7703-98-72 06:25:00* Test Item Value Reference Range Interpretation Comments Percent Iron Saturation (test code = 2502-3) 34 15-50 [facility] CenterTransferrin2019-08-27 06:25:00* Test Item Value Reference Range Interpretation Comments Transferrin (test code = 3034-6) 141 174-364 L [facility] CenterPhosphorus Ijxzw0937-23-32 12:53:00* Test Item Value Reference Range Interpretation Comments Phosphorus Level (test code = LDV2358) 5.0 2.3-4.7 H [facility] CenterCT ABDOMEN/PELVIS PY9573-00-38 09:50:00 [place] [address] Patient Name: MANJIT LUO MR #: [id number] : 1980 Age/Sex: 38/M Req #: [id number] Adm Physician: ABHIJIT YODER MD Ordered by: ABHIJIT YODER MD Report #: [id number] Location: MED/SURG Room/Bed: 110-1 Procedure: [id number] CT/CT ABDOMEN/PELVIS WO Exam Date: 10/18/18 Exam [...] MD 1000 COPY TO: ABHIJIT YODER Ionized Vkgafcg9667-11-70 09:47:00* Test Item Value Reference Range Interpretation Comments Ionized Calcium (test code = 49791-4) 1.0 1.09-1.30 L [facility] CenterIonized Bdlqaqx8877-04-83 09:47:00* Test Item Value Reference Range Interpretation Comments Ionized Calcium (test code = 25373-2) 1.0 1.09-1.30 L [facility] CenterIonized Iemgrky2280-89-64 09:47:00* Test Item Value Reference Range Interpretation Comments Ionized Calcium (test code = 82186-0) 1.0 1.09-1.30 L [facility] CenterTotal Fzqcdeehc8994-34-61 06:16:00* Test Item Value Reference Range Interpretation Comments Total Bilirubin (test code = 1975-2) 0.3 0.2-1.2 [facility] CenterAspartate Amino Transf (AST/SGOT) 2018-10-18 06:16:00* Test Item Value Reference Range Interpretation Comments Aspartate Amino Transf (AST/SGOT) (test code = Aspartate Amino Transf (AST/SGOT)) 118 5-34 H [facility] CenterAlanine Aminotransferase (ALT/SGPT) 2018-10-18 06:16:00* Test Item Value Reference Range Interpretation Comments Alanine Aminotransferase (ALT/SGPT) (test code = 1742-6) 107 0-55 H [facility] CenterTotal Mlsedeu4119-35-14 06:16:00* Test Item Value Reference Range Interpretation Comments Total Protein (test code = 2885-2) 6.5 6.5-8.1 [facility] CenterAlbumin2019-08-26 06:16:00* Test Item Value Reference Range Interpretation Comments Albumin (test code = 1751-7) 2.7 3.5-5.0 L [facility] CenterGlobulin2019-08-26 06:16:00* Test Item Value Reference Range Interpretation Comments Globulin (test code = 95146-0) 3.8 2.3-3.5 H [facility] CenterAlbumin/Globulin Nyjix1430-43-20 06:16:00 * Test Item Value Reference Range Interpretation Comments Albumin/Globulin Ratio (test code = 1759-0) 0.7 0.8-2.0 L [facility] CenterAlkaline Npycuobqnqv2381-26-95 06:16:00* Test Item Value Reference Range Interpretation Comments Alkaline Phosphatase (test code = 6768-6) 306 40-150 H [facility] CenterUrine Aojfw0960-85-71 02:26:00* Test Item Value Reference Range Interpretation Comments Urine Color (test code = 5778-6) YELLOW YELLOW [facility] CenterUrine Zedfvds9060-98-06 02:26:00* Test Item Value Reference Range Interpretation Comments Urine Clarity (test code = 96910-0) CLOUDY CLEAR H [facility] CenterUrine Specific Srtfyqg5408-46-55 02:26:00 * Test Item Value Reference Range Interpretation Comments Urine Specific [place] (test code = 5811-5) 1.020 1.010-1.02 5 [facility] CenterUrine oN8055-97-39 02:26:00* Test Item Value Reference Range Interpretation Comments Urine pH (test code = 20742-5) 6 5-7 [facility] CenterUrine Leukocyte Lndvmllb5279-93-96 02:26:00* Test Item Value Reference Range Interpretation Comments Urine Leukocyte Esterase (test code = 5799-2) 2+ NEGATIVE H [facility] CenterUrine Edifbwl6056-05-51 02:26:00* Test Item Value Reference Range Interpretation Comments Urine Nitrite (test code = 55124-8) NEGATIVE NEGATIVE [facility] CenterUrine Qvoxuni4741-11-58 02:26:00* Test Item Value Reference Range Interpretation Comments Urine Protein (test code = 5804-0) 3+ NEGATIVE H [facility] CenterUrine Glucose (UA)2018-10-17 02:26:00* Test Item Value Reference Range Interpretation Comments Urine Glucose (UA) (test code = 2349-9) NEGATIVE NEGATIVE [facility] CenterUrine Hfmfvdm4683-97-76 02:26:00* Test Item Value Reference Range Interpretation Comments Urine Ketones (test code = 61480-8) NEGATIVE NEGATIVE [facility] CenterUrine Jcxmufhdyjjo4756-03-94 02:26:00* Test Item Value Reference Range Interpretation Comments Urine Urobilinogen (test code = 56622-8) 0.2 0.2-1 [facility] CenterUrine Cceadxyku6819-60-91 02:26:00* Test Item Value Reference Range Interpretation Comments Urine Bilirubin (test code = 1978-6) NEGATIVE NEGATIVE [facility] CenterUrine Mjhlt0702-66-77 02:26:00* Test Item Value Reference Range Interpretation Comments Urine Blood (test code = 27539-0) 3+ NEGATIVE H [facility] CenterUrine NGZ9985-79-34 02:26:00* Test Item Value Reference Range Interpretation Comments Urine WBC (test code = 5821-4) >50 0-5 H [facility] CenterUrine SWA4123-15-06 02:26:00* Test Item Value Reference Range Interpretation Comments Urine RBC (test code = 44079-1) >50 0-5 H [facility] CenterUrine Cfmdydnn6852-14-70 02:26:00* Test Item Value Reference Range Interpretation Comments Urine Bacteria (test code = 78396-2) MANY NONE H [facility] CenterUrine Epithelial Srsmi1430-50-59 02:26:00 * Test Item Value Reference Range Interpretation Comments Urine Epithelial Cells (test code = 02638-1) MODERATE NONE [facility] Hebar1897-66-83 13:40:00* Test Item Value Reference Range Interpretation Comments Sodium Level (test code = 2951-2) 142 136-145 [facility] CenterPotassium Mrqmr2306-53-17 13:40:00* Test Item Value Reference Range Interpretation Comments Potassium Level (test code = 2823-3) 4.4 3.5-5.1 [facility] CenterChloride Kbalu6472-24-50 13:40:00* Test Item Value Reference Range Interpretation Comments Chloride Level (test code = 2075-0) 107 98-107 [facility] CenterCarbon Dioxide Ppyaf7358-89-33 13:40:00* Test Item Value Reference Range Interpretation Comments Carbon Dioxide Level (test code = 2028-9) 25 22-29 [facility] CenterAnion Ajm3070-10-11 13:40:00* Test Item Value Reference Range Interpretation Comments Anion Gap (test code = 57141-3) 14.4 8-16 [facility] CenterBlood Urea Lyziwmgx5730-12-29 13:40:00* Test Item Value Reference Range Interpretation Comments Blood Urea Nitrogen (test code = 3094-0) 34 7-26 H [facility] CenterCreatinine2019-05-05 13:40:00* Test Item Value Reference Range Interpretation Comments Creatinine (test code = 2160-0) 2.63 0.72-1.25 H [facility] CenterBUN/Creatinine Jvhec4343-96-96 13:40:00* Test Item Value Reference Range Interpretation Comments BUN/Creatinine Ratio (test code = 3097-3) 13 6-25 [facility] CenterEstimat Glomerular Filtration Rate 2018-06-27 13:40:00* Test Item Value Reference Range Interpretation Comments Estimat Glomerular Filtration Rate (test code = 533276048) 28 >60 L Ranges were taken from the National Kidney Disease Education Program and the [facility] literature.Reference ranges:60 or greater: Vikvbw63-34 ( for 3 consecutive months): Chronic kidney disease 15 or less: Kidney failureBaptist Medical CenterGlucose Njxly6457-79-23 13:40:00* Test Item Value Reference Range Interpretation Comments Glucose Level (test code = WHP3929) 105 74-118 [facility] CenterCalcium Lbhgx6443-70-83 13:40:00* Test Item Value Reference Range Interpretation Comments Calcium Level (test code = 42778-6) 7.1 8.4-10.2 L [facility] CenterBedside Jwczdsi4652-12-09 11:50:00* Test Item Value Reference Range Interpretation Comments Bedside Glucose (test code = 60603-3) 160 70-120 H Meter ID: [id number] [facility] 2018-06-25 17:11:00* Test Item Value Reference Range Interpretation Comments Blood Culture (test code = 63382973) NO GROWTH AFTER 5 DAYS, FINAL REPORT [facility] CenterBlood Ldkqjju0664-70-31 17:11:00* Test Item Value Reference Range Interpretation Comments Blood Culture (test code = 63931719) NO GROWTH AFTER 5 DAYS, FINAL REPORT [facility] CenterWhite Blood Rikkz9853-31-96 06:01:00* Test Item Value Reference Range Interpretation Comments White Blood Count (test code = 6690-2) 4.22 4.8-10.8 L [facility] CenterRed Blood Nnghj5099-56-93 06:01:00* Test Item Value Reference Range Interpretation Comments Red Blood Count (test code = 789-8) 3.20 4.3-5.7 L [facility] CenterHemoglobin2019-05-03 06:01:00* Test Item Value Reference Range Interpretation Comments Hemoglobin (test code = 40197-6) 8.6 14.0-18.0 L [facility] CenterHematocrit2019-05-03 06:01:00* Test Item Value Reference Range Interpretation Comments Hematocrit (test code = 4544-3) 26.0 38.2-49.6 L [facility] CenterMean Corpuscular Ukanhv6132-81-43 06:01:00* Test Item Value Reference Range Interpretation Comments Mean Corpuscular Volume (test code = 787-2) 81.3 81-99 [facility] CenterMean Corpuscular Tcnawefgmu3630-51-79 06:01:00* Test Item Value Reference Range Interpretation Comments Mean Corpuscular Hemoglobin (test code = 785-6) 26.9 28-32 L [facility] CenterMean Corpuscular Hemoglobin Concent 2018-06-25 06:01:00* Test Item Value Reference Range Interpretation Comments Mean Corpuscular Hemoglobin Concent (test code = 786-4) 33.1 31-35 [facility] CenterRed Cell Distribution Vnsyz4993-78-89 06:01:00* Test Item Value Reference Range Interpretation Comments Red Cell Distribution Width (test code = 07039-3) 13.7 11.7 -14.4 [facility] CenterPlatelet Spdsb3500-67-22 06:01:00* Test Item Value Reference Range Interpretation Comments Platelet Count (test code = 777-3) 147 140-360 [facility] CenterNeutrophils (%) (Auto)2018-06-25 06:01:00 * Test Item Value Reference Range Interpretation Comments Neutrophils (%) (Auto) (test code = 94942-1) 56.1 38.7-80.0 [facility] CenterLymphocytes (%) (Auto)2018-06-25 06:01:00 * Test Item Value Reference Range Interpretation Comments Lymphocytes (%) (Auto) (test code = 736-9) 32.0 18.0-39.1 [facility] CenterMonocytes (%) (Auto)2018-06-25 06:01:00* Test Item Value Reference Range Interpretation Comments Monocytes (%) (Auto) (test code = 5905-5) 5.7 4.4-11.3 [facility] CenterEosinophils (%) (Auto)2018-06-25 06:01:00 * Test Item Value Reference Range Interpretation Comments Eosinophils (%) (Auto) (test code = 713-8) 3.8 0.0-6.0 [facility] CenterBasophils (%) (Auto)2018-06-25 06:01:00* Test Item Value Reference Range Interpretation Comments Basophils (%) (Auto) (test code = 706-2) 0.5 0.0-1.0 [facility] CenterIM GRANULOCYTES %2018-06-25 06:01:00* Test Item Value Reference Range Interpretation Comments IM GRANULOCYTES % (test code = IM GRANULOCYTES %) 1.9 0.0- 1.0 H [facility] CenterNeutrophils # (Auto)2018-06-25 06:01:00* Test Item Value Reference Range Interpretation Comments Neutrophils # (Auto) (test code = 751-8) 2.4 2.1-6.9 [facility] CenterLymphocytes # (Auto)2018-06-25 06:01:00* Test Item Value Reference Range Interpretation Comments Lymphocytes # (Auto) (test code = 01508-8) 1.4 1.0-3.2 [facility] CenterMonocytes # (Auto)2018-06-25 06:01:00* Test Item Value Reference Range Interpretation Comments Monocytes # (Auto) (test code = 742-7) 0.2 0.2-0.8 [facility] CenterEosinophils # (Auto)2018-06-25 06:01:00* Test Item Value Reference Range Interpretation Comments Eosinophils # (Auto) (test code = 711-2) 0.2 0.0-0.4 [facility] CenterBasophils # (Auto)2018-06-25 06:01:00* Test Item Value Reference Range Interpretation Comments Basophils # (Auto) (test code = 704-7) 0.0 0.0-0.1 [facility] CenterAbsolute Immature Granulocyte (auto 2018-06-25 06:01:00* Test Item Value Reference Range Interpretation Comments Absolute Immature Granulocyte (auto (shin t code = Absolute Immature Granulocyte (auto) 0.08 0-0.1 [facility] CenterFerritin2019-05-01 08:32:00* Test Item Value Reference Range Interpretation Comments Ferritin (test code = 2276-4) 273.51 21.81-274.66 [facility] CenterIron Elipv6783-78-88 06:46:00* Test Item Value Reference Range Interpretation Comments Iron Level (test code = 2498-4) 71 65-175 [facility] CenterTotal Iron Binding Qrrggfgr2175-96-69 06:46:00* Test Item Value Reference Range Interpretation Comments Total Iron Binding Capacity (test code = 2500-7) 217 261-4 78 L [facility] CenterPercent Iron Xksxybrjpl5041-37-68 06:46:00* Test Item Value Reference Range Interpretation Comments Percent Iron Saturation (test code = 2502-3) 33 15-50 [facility] CenterTransferrin2019-05-01 06:46:00* Test Item Value Reference Range Interpretation Comments Transferrin (test code = 3034-6) 155 174-364 L [facility] CenterPhosphorus Rdtdb3625-34-15 06:11:00* Test Item Value Reference Range Interpretation Comments Phosphorus Level (test code = GAY1922) 4.8 2.3-4.7 H [facility] CenterMagnesium Hsilf3324-98-75 06:11:00* Test Item Value Reference Range Interpretation Comments Magnesium Level (test code = 09333-8) 1.2 1.3-2.1 L [facility] CenterUrine Random Total Hpibdnr8147-86-44 18:31:00* Test Item Value Reference Range Interpretation Comments Urine Random Total Protein (test code = 2888-6) 227.6 1-14 H [facility] CenterUrine Protein/Creatinine Xshcw7298-78-89 18:31:00* Test Item Value Reference Range Interpretation Comments Urine Protein/Creatinine Ratio (test code = 48557-9) 2.00 [facility] CenterUrine Random Total Uvwbsaa4941-41-40 18:31:00* Test Item Value Reference Range Interpretation Comments Urine Random Total Protein (test code = 2888-6) 227.6 1-14 H [facility] CenterUrine Protein/Creatinine Cohot0305-00-71 18:31:00* Test Item Value Reference Range Interpretation Comments Urine Protein/Creatinine Ratio (test code = 66816-9) 2.00 [facility] CenterUrine Random Total Puzrjms6744-68-19 18:31:00* Test Item Value Reference Range Interpretation Comments Urine Random Total Protein (test code = 2888-6) 227.6 1-14 H [facility] CenterUrine Protein/Creatinine Izwym6672-01-83 18:31:00* Test Item Value Reference Range Interpretation Comments Urine Protein/Creatinine Ratio (test code = 35318-2) 2.00 [facility] CenterUrine Random Total Lchipxz2935-05-18 18:31:00* Test Item Value Reference Range Interpretation Comments Urine Random Total Protein (test code = 2888-6) 227.6 1-14 H [facility] CenterUrine Protein/Creatinine Uodox1647-65-78 18:31:00* Test Item Value Reference Range Interpretation Comments Urine Protein/Creatinine Ratio (test code = 65665-2) 2.00 [facility] CenterUrine Random Total Ppqahhs0458-74-90 18:31:00* Test Item Value Reference Range Interpretation Comments Urine Random Total Protein (test code = 2888-6) 227.6 1-14 H [facility] CenterUrine Protein/Creatinine Pajfc3797-05-68 18:31:00* Test Item Value Reference Range Interpretation Comments Urine Protein/Creatinine Ratio (test code = 59834-7) 2.00 [facility] CenterUrine Random Total Kxpkibz8809-38-56 18:31:00* Test Item Value Reference Range Interpretation Comments Urine Random Total Protein (test code = 2888-6) 227.6 1-14 H [facility] CenterUrine Protein/Creatinine Puxbp2855-68-01 18:31:00* Test Item Value Reference Range Interpretation Comments Urine Protein/Creatinine Ratio (test code = 43745-6) 2.00 [facility] CenterUrine Ulekxusana3821-81-47 18:19:00* Test Item Value Reference Range Interpretation Comments Urine Creatinine (test code = 2161-8) 76.55 63-166 [facility] CenterUrine Nabbelfhws1647-45-69 18:19:00* Test Item Value Reference Range Interpretation Comments Urine Creatinine (test code = 2161-8) 76.55 63-166 [facility] CenterUrine Uoqemliywi9390-95-99 18:19:00* Test Item Value Reference Range Interpretation Comments Urine Creatinine (test code = 2161-8) 76.55 63-166 [facility] CenterUrine Cvkbbagaib4444-28-38 18:19:00* Test Item Value Reference Range Interpretation Comments Urine Creatinine (test code = 2161-8) 76.55 63-166 [facility] Ojkfkbrpsi9968-11-08 18:19:00* Test Item Value Reference Range Interpretation Comments Urine Creatinine (test code = 2161-8) 76.55 63-166 [facility] Deofjqzajc8592-45-11 18:19:00* Test Item Value Reference Range Interpretation Comments Urine Creatinine (test code = 2161-8) 76.55 63-166 [facility] Vshkkvfvr7527-07-56 06:25:00* Test Item Value Reference Range Interpretation Comments Total Bilirubin (test code = 1975-2) 0.2 0.2-1.2 [facility] CenterAspartate Amino Transf (AST/SGOT) 2018-06-22 06:25:00* Test Item Value Reference Range Interpretation Comments Aspartate Amino Transf (AST/SGOT) (test code = Aspartate Amino Transf (AST/SGOT)) 86 5-34 H [facility] CenterAlanine Aminotransferase (ALT/SGPT) 2018-06-22 06:25:00* Test Item Value Reference Range Interpretation Comments Alanine Aminotransferase (ALT/SGPT) (test code = 1742-6) 76 0-55 H [facility] CenterTotal Wiyhsop6020-10-93 06:25:00* Test Item Value Reference Range Interpretation Comments Total Protein (test code = 2885-2) 6.8 6.5-8.1 [facility]Albumin2019-04-30 06:25:00* Test Item Value Reference Range Interpretation Comments Albumin (test code = 1751-7) 2.1 3.5-5.0 L [facility]Globulin2019-04-30 06:25:00* Test Item Value Reference Range Interpretation Comments Globulin (test code = 82665-5) 4.7 2.3-3.5 H [facility] CenterAlbumin/Globulin Becaa1092-55-22 06:25:00 * Test Item Value Reference Range Interpretation Comments Albumin/Globulin Ratio (test code = 1759-0) 0.4 0.8-2.0 L [facility] CenterAlkaline Uwznccxkmdl1146-11-51 06:25:00* Test Item Value Reference Range Interpretation Comments Alkaline Phosphatase (test code = 6768-6) 265 40-150 H [facility] CenterHemoglobin A1c Xsenofx3370-97-73 06:11:00 * Test Item Value Reference Range Interpretation Comments Hemoglobin A1c Percent (test code = Hemoglobin A1c Percent) 5.7 4.0-7.0 [facility] CenterHemoglobin A1c Zwempkm3547-03-99 06:11:00 * Test Item Value Reference Range Interpretation Comments Hemoglobin A1c Percent (test code = Hemoglobin A1c Percent) 5.7 4.0-7.0 [facility] CenterHemoglobin A1c Seatjtd7948-12-38 06:11:00 * Test Item Value Reference Range Interpretation Comments Hemoglobin A1c Percent (test code = Hemoglobin A1c Percent) 5.7 4.0-7.0 [facility] CenterHemoglobin A1c Mnxkxin3299-31-96 06:11:00 * Test Item Value Reference Range Interpretation Comments Hemoglobin A1c Percent (test code = Hemoglobin A1c Percent) 5.7 4.0-7.0 [facility] CenterHemoglobin A1c Nmouzly0652-27-84 06:11:00 * Test Item Value Reference Range Interpretation Comments Hemoglobin A1c Percent (test code = Hemoglobin A1c Percent) 5.7 4.0-7.0 [facility] CenterHemoglobin A1c Onbcxin0577-38-62 06:11:00 * Test Item Value Reference Range Interpretation Comments Hemoglobin A1c Percent (test code = Hemoglobin A1c Percent) 5.7 4.0-7.0 [facility] CenterVitamin B12 Yyfdo4553-18-56 11:07:00* Test Item Value Reference Range Interpretation Comments Vitamin B12 Level (test code = 20864-4) 403 213-816 [facility] CenterFolate2019-04-29 11:07:00* Test Item Value Reference Range Interpretation Comments Folate (test code = 2284-8) 7.2 7.0-15.4 [facility] CenterVitamin B12 Abqts8579-05-82 11:07:00* Test Item Value Reference Range Interpretation Comments Vitamin B12 Level (test code = 14981-4) 403 213-816 [facility] CenterFolate2019-04-29 11:07:00* Test Item Value Reference Range Interpretation Comments Folate (test code = 2284-8) 7.2 7.0-15.4 [facility] CenterVitamin B12 Hwlkg3326-24-26 11:07:00* Test Item Value Reference Range Interpretation Comments Vitamin B12 Level (test code = 29284-5) 403 213-816 [facility] CenterFolate2019-04-29 11:07:00* Test Item Value Reference Range Interpretation Comments Folate (test code = 2284-8) 7.2 7.0-15.4 [facility] CenterVitamin B12 Disiw1541-74-25 11:07:00* Test Item Value Reference Range Interpretation Comments Vitamin B12 Level (test code = 61751-0) 403 213-816 [facility] CenterFolate2019-04-29 11:07:00* Test Item Value Reference Range Interpretation Comments Folate (test code = 2284-8) 7.2 7.0-15.4 [facility] CenterVitamin B12 Dddgy9512-58-18 11:07:00* Test Item Value Reference Range Interpretation Comments Vitamin B12 Level (test code = 00391-8) 403 213-816 [facility] CenterFolate2019-04-29 11:07:00* Test Item Value Reference Range Interpretation Comments Folate (test code = 2284-8) 7.2 7.0-15.4 [facility] CenterVitamin B12 Jwvnr6883-77-11 11:07:00* Test Item Value Reference Range Interpretation Comments Vitamin B12 Level (test code = 26779-3) 403 213-816 [facility] CenterFolate2019-04-29 11:07:00* Test Item Value Reference Range Interpretation Comments Folate (test code = 2284-8) 7.2 7.0-15.4 [facility] CenterThyroid Stimulating Hormone (TSH) 2018-06-21 11:06:00* Test Item Value Reference Range Interpretation Comments Thyroid Stimulating Hormone (TSH) (test code = 82803-0) 2.156 0.350-4.940 [facility] CenterThyroid Stimulating Hormone (TSH) 2018-06-21 11:06:00* Test Item Value Reference Range Interpretation Comments Thyroid Stimulating Hormone (TSH) (test code = 91643-2) 2.156 0.350-4.940 [facility] CenterThyroid Stimulating Hormone (TSH) 2018-06-21 11:06:00* Test Item Value Reference Range Interpretation Comments Thyroid Stimulating Hormone (TSH) (test code = 38171-4) 2.156 0.350-4.940 [facility] CenterThyroid Stimulating Hormone (TSH) 2018-06-21 11:06:00* Test Item Value Reference Range Interpretation Comments Thyroid Stimulating Hormone (TSH) (test code = 88021-4) 2.156 0.350-4.940 [facility] CenterThyroid Stimulating Hormone (TSH) 2018-06-21 11:06:00* Test Item Value Reference Range Interpretation Comments Thyroid Stimulating Hormone (TSH) (test code = 72971-2) 2.156 0.350-4.940 [facility] CenterThyroid Stimulating Hormone (TSH) 2018-06-21 11:06:00* Test Item Value Reference Range Interpretation Comments Thyroid Stimulating Hormone (TSH) (test code = 38412-6) 2.156 0.350-4.940 [facility] NIR8352-78-71 17:46:00* Test Item Value Reference Range Interpretation Comments Urine WBC (test code = 5821-4) >50 0-5 H [facility] SLD4304-21-39 17:46:00* Test Item Value Reference Range Interpretation Comments Urine RBC (test code = 47307-0) >50 0-5 H [facility] Xkujkhrm2758-78-61 17:46:00* Test Item Value Reference Range Interpretation Comments Urine Bacteria (test code = 58675-7) MANY NONE H [facility] CenterU[facility] Epithelial Tzrdn8034-88-68 17:46:00 * Test Item Value Reference Range Interpretation Comments Urine Epithelial Cells (test code = 87347-1) FEW NONE [facility] Fine Granular Oqvjm9223-63-99 17:46:00* Test Item Value Reference Range Interpretation Comments Urine Fine Granular Casts (test code = 43262-5) 1-5 >0 H [facility] CenterUrine Coarse Granular Dqalz3098-60-10 17:46:00* Test Item Value Reference Range Interpretation Comments Urine Coarse Granular Casts (test code = 40349-0) 1-5 >0 H [facility] CenterU[facility] Fine Granular Xddcr5723-90-47 17:46:00* Test Item Value Reference Range Interpretation Comments Urine Fine Granular Casts (test code = 55324-9) 1-5 >0 H [facility] CenterU[facility] Coarse Granular Qmpnn2823-07-89 17:46:00* Test Item Value Reference Range Interpretation Comments Urine Coarse Granular Casts (test code = 89339-6) 1-5 >0 H [facility] CenterU[facility] Fine Granular Bhorg9076-08-43 17:46:00* Test Item Value Reference Range Interpretation Comments Urine Fine Granular Casts (test code = 81514-2) 1-5 >0 H [facility] CenterU[facility] Coarse Granular Hxbxt2331-37-35 17:46:00* Test Item Value Reference Range Interpretation Comments Urine Coarse Granular Casts (test code = 69634-3) 1-5 >0 H [facility] CenterU[facility] Fine Granular Wfdnx5004-78-81 17:46:00* Test Item Value Reference Range Interpretation Comments Urine Fine Granular Casts (test code = 67988-0) 1-5 >0 H [facility] CenterU[facility] Coarse Granular Fyvrf8586-20-20 17:46:00* Test Item Value Reference Range Interpretation Comments Urine Coarse Granular Casts (test code = 96741-6) 1-5 >0 H [facility] CenterU[facility] Fine Granular Oertv5839-62-31 17:46:00* Test Item Value Reference Range Interpretation Comments Urine Fine Granular Casts (test code = 32109-2) 1-5 >0 H [facility] CenterU[facility] Coarse Granular Jwxsm1562-81-85 17:46:00* Test Item Value Reference Range Interpretation Comments Urine Coarse Granular Casts (test code = 92409-3) 1-5 >0 H [facility] CenterU[facility] Fine Granular Fpqnf4359-11-57 17:46:00* Test Item Value Reference Range Interpretation Comments Urine Fine Granular Casts (test code = 91733-1) 1-5 >0 H [facility] CenterU[facility] Coarse Granular Btftc6213-33-70 17:46:00* Test Item Value Reference Range Interpretation Comments Urine Coarse Granular Casts (test code = 30140-1) 1-5 >0 H [facility] CenterU[facility] Hrwjh7302-39-80 17:30:00* Test Item Value Reference Range Interpretation Comments Urine Color (test code = 5778-6) YELLOW YELLOW [facility] Bcwtueb0329-82-43 17:30:00* Test Item Value Reference Range Interpretation Comments Urine Clarity (test code = 96010-4) CLOUDY CLEAR H [facility] CenterU[facility] Specific Kvtnozp3445-94-01 17:30:00 * Test Item Value Reference Range Interpretation Comments Urine Specific [place] (test code = 5811-5) 1.020 1.010-1.02 5 [facility] oM8550-23-30 17:30:00* Test Item Value Reference Range Interpretation Comments Urine pH (test code = 16365-9) 6 5-7 [facility] Leukocyte Dtkhipgz7578-32-07 17:30:00* Test Item Value Reference Range Interpretation Comments Urine Leukocyte Esterase (test code = 5799-2) 1+ NEGATIVE H [facility] CenterU[facility] Ewowdyp7227-64-86 17:30:00* Test Item Value Reference Range Interpretation Comments Urine Nitrite (test code = 31172-9) NEGATIVE NEGATIVE [facility] Gndbbau8410-17-55 17:30:00* Test Item Value Reference Range Interpretation Comments Urine Protein (test code = 5804-0) 3+ NEGATIVE H [facility] CenterU[facility] Glucose (UA)2018-06-20 17:30:00* Test Item Value Reference Range Interpretation Comments Urine Glucose (UA) (test code = 2349-9) 1+ NEGATIVE H [facility] CenterU[facility] Dkehysf0127-51-04 17:30:00* Test Item Value Reference Range Interpretation Comments Urine Ketones (test code = 86044-5) NEGATIVE NEGATIVE [facility] Imkuxywxusey9173-37-43 17:30:00* Test Item Value Reference Range Interpretation Comments Urine Urobilinogen (test code = 88404-2) 0.2 0.2-1 [facility] Mqwqgsvvr0726-47-70 17:30:00* Test Item Value Reference Range Interpretation Comments Urine Bilirubin (test code = 1978-6) NEGATIVE NEGATIVE [facility] Azqax1136-22-15 17:30:00* Test Item Value Reference Range Interpretation Comments Urine Blood (test code = 79551-1) 4+ NEGATIVE H [facility] CenterBedside Okjwcdo1767-62-66 16:10:00* Test Item Value Reference Range Interpretation Comments Bedside Glucose (test code = 89772-0) 72 70-120 Meter ID: [id number] Culture 2018-05-07 07:13:00* Test Item Value Reference Range Interpretation Comments Urine Culture (test code = 630-4) Organism: PSEUDOMONAS AERUGINOSA [facility] Hvydbyg6257-18-83 07:13:00* Test Item Value Reference Range Interpretation Comments Urine Culture (test code = 630-4) Organism: PSEUDOMONAS AERUGINOSA [facility] Rxishxc7202-28-65 07:13:00* Test Item Value Reference Range Interpretation Comments Urine Culture (test code = 630-4) Organism: PSEUDOMONAS AERUGINOSA [facility] Mvekvjw6536-13-22 07:13:00* Test Item Value Reference Range Interpretation Comments Urine Culture (test code = 630-4) Organism: PSEUDOMONAS AERUGINOSA [facility] Mrnthme4284-63-43 07:13:00* Test Item Value Reference Range Interpretation Comments Urine Culture (test code = 630-4) Organism: PSEUDOMONAS AERUGINOSA [facility] Yqorjri3678-45-08 07:13:00* Test Item Value Reference Range Interpretation Comments Urine Culture (test code = 630-4) No Result [facility] Eulci1622-83-48 06:43:00* Test Item Value Reference Range Interpretation Comments Sodium Level (test code = 2951-2) 136 136-145 [facility] CenterPotassium Jvtzv2332-97-88 06:43:00* Test Item Value Reference Range Interpretation Comments Potassium Level (test code = 2823-3) 5.2 3.5-5.1 H [facility] CenterChloride Snlyi8210-20-13 06:43:00* Test Item Value Reference Range Interpretation Comments Chloride Level (test code = 2075-0) 111 98-107 H [facility] CenterCarbon Dioxide Vzqsq4073-88-51 06:43:00* Test Item Value Reference Range Interpretation Comments Carbon Dioxide Level (test code = 2028-9) 21 22-29 L [facility] CenterAnion Wpe4754-98-60 06:43:00* Test Item Value Reference Range Interpretation Comments Anion Gap (test code = 42390-9) 9.2 8-16 [facility] CenterBlood Urea Ogbiyqqs5029-32-18 06:43:00* Test Item Value Reference Range Interpretation Comments Blood Urea Nitrogen (test code = 3094-0) 26 7-26 [facility] CenterCreatinine2019-03-14 06:43:00* Test Item Value Reference Range Interpretation Comments Creatinine (test code = 2160-0) 2.22 0.72-1.25 H [facility] CenterBUN/Creatinine Xvuda4801-94-00 06:43:00* Test Item Value Reference Range Interpretation Comments BUN/Creatinine Ratio (test code = 3097-3) 12 6-25 [facility] CenterEstimat Glomerular Filtration Rate 2018-05-06 06:43:00* Test Item Value Reference Range Interpretation Comments Estimat Glomerular Filtration Rate (test code = 394709675) 33 >60 L Ranges were taken from the National Kidney Disease Education Program and the [facility] literature.Reference ranges:60 or greater: Giyukf90-84 ( for 3 consecutive months): Chronic kidney disease 15 or less: Kidney failureBaptist Medical CenterGlucose Ffzkr1265-99-37 06:43:00* Test Item Value Reference Range Interpretation Comments Glucose Level (test code = KLN3103) 144 74-118 H [facility] CenterCalcium Gfoio1772-08-61 06:43:00* Test Item Value Reference Range Interpretation Comments Calcium Level (test code = 97943-9) 6.5 8.4-10.2 LL Results repeated and called to RANULFO ALATORRE RN at 0641 on 05/06/18 by Morenita Guy. Read back and verified.[facility] CenterWhite Blood Iqmss6844-77-89 06:20:00* Test Item Value Reference Range Interpretation Comments White Blood Count (test code = 6690-2) 3.55 4.8-10.8 L [facility] CenterRed Blood Tttqj6404-79-58 06:20:00* Test Item Value Reference Range Interpretation Comments Red Blood Count (test code = 789-8) 3.25 4.3-5.7 L [facility] CenterHemoglobin2019-03-14 06:20:00* Test Item Value Reference Range Interpretation Comments Hemoglobin (test code = 66017-7) 8.6 14.0-18.0 L [facility] CenterHematocrit2019-03-14 06:20:00* Test Item Value Reference Range Interpretation Comments Hematocrit (test code = 4544-3) 27.2 38.2-49.6 L [facility] CenterMean Corpuscular Xsbnau7176-60-57 06:20:00* Test Item Value Reference Range Interpretation Comments Mean Corpuscular Volume (test code = 787-2) 83.7 81-99 [facility] CenterMean Corpuscular Gszzldvwtu9392-94-87 06:20:00* Test Item Value Reference Range Interpretation Comments Mean Corpuscular Hemoglobin (test code = 785-6) 26.5 28-32 L [facility] CenterMean Corpuscular Hemoglobin Concent 2018-05-06 06:20:00* Test Item Value Reference Range Interpretation Comments Mean Corpuscular Hemoglobin Concent (test code = 786-4) 31.6 31-35 [facility] CenterRed Cell Distribution Naapu9227-22-72 06:20:00* Test Item Value Reference Range Interpretation Comments Red Cell Distribution Width (test code = 63857-5) 14.6 11.7 -14.4 H [facility] CenterPlatelet Ttiid4152-08-17 06:20:00* Test Item Value Reference Range Interpretation Comments Platelet Count (test code = 777-3) 113 140-360 L [facility] CenterNeutrophils (%) (Auto)2018-05-06 06:20:00 * Test Item Value Reference Range Interpretation Comments Neutrophils (%) (Auto) (test code = 74570-7) 59.6 38.7-80.0 [facility] CenterLymphocytes (%) (Auto)2018-05-06 06:20:00 * Test Item Value Reference Range Interpretation Comments Lymphocytes (%) (Auto) (test code = 736-9) 24.8 18.0-39.1 [facility] CenterMonocytes (%) (Auto)2018-05-06 06:20:00* Test Item Value Reference Range Interpretation Comments Monocytes (%) (Auto) (test code = 5905-5) 8.5 4.4-11.3 [facility] CenterEosinophils (%) (Auto)2018-05-06 06:20:00 * Test Item Value Reference Range Interpretation Comments Eosinophils (%) (Auto) (test code = 713-8) 5.1 0.0-6.0 [facility] CenterBasophils (%) (Auto)2018-05-06 06:20:00* Test Item Value Reference Range Interpretation Comments Basophils (%) (Auto) (test code = 706-2) 0.6 0.0-1.0 [facility] CenterIM GRANULOCYTES %2018-05-06 06:20:00* Test Item Value Reference Range Interpretation Comments IM GRANULOCYTES % (test code = IM GRANULOCYTES %) 1.4 0.0- 1.0 H [facility] CenterNeutrophils # (Auto)2018-05-06 06:20:00* Test Item Value Reference Range Interpretation Comments Neutrophils # (Auto) (test code = 751-8) 2.1 2.1-6.9 [facility] CenterLymphocytes # (Auto)2018-05-06 06:20:00* Test Item Value Reference Range Interpretation Comments Lymphocytes # (Auto) (test code = 18070-9) 0.9 1.0-3.2 L [facility] CenterMonocytes # (Auto)2018-05-06 06:20:00* Test Item Value Reference Range Interpretation Comments Monocytes # (Auto) (test code = 742-7) 0.3 0.2-0.8 [facility] CenterEosinophils # (Auto)2018-05-06 06:20:00* Test Item Value Reference Range Interpretation Comments Eosinophils # (Auto) (test code = 711-2) 0.2 0.0-0.4 [facility] CenterBasophils # (Auto)2018-05-06 06:20:00* Test Item Value Reference Range Interpretation Comments Basophils # (Auto) (test code = 704-7) 0.0 0.0-0.1 [facility] CenterAbsolute Immature Granulocyte (auto 2018-05-06 06:20:00* Test Item Value Reference Range Interpretation Comments Absolute Immature Granulocyte (auto (shin t code = Absolute Immature Granulocyte (auto) 0.05 0-0.1 [facility] CenterTotal Ensloswpt8820-80-58 06:21:00* Test Item Value Reference Range Interpretation Comments Total Bilirubin (test code = 1975-2) 0.2 0.2-1.2 [facility] CenterAspartate Amino Transf (AST/SGOT) 2018-05-05 06:21:00* Test Item Value Reference Range Interpretation Comments Aspartate Amino Transf (AST/SGOT) (test code = Aspartate Amino Transf (AST/SGOT)) 31 5-34 [facility] CenterAlanine Aminotransferase (ALT/SGPT) 2018-05-05 06:21:00* Test Item Value Reference Range Interpretation Comments Alanine Aminotransferase (ALT/SGPT) (test code = 1742-6) 44 0-55 [facility] CenterTotal Wpdyaus1290-82-67 06:21:00* Test Item Value Reference Range Interpretation Comments Total Protein (test code = 2885-2) 6.6 6.5-8.1 [facility] CenterAlbumin2019-03-13 06:21:00* Test Item Value Reference Range Interpretation Comments Albumin (test code = 1751-7) 2.4 3.5-5.0 L [facility] CenterGlobulin2019-03-13 06:21:00* Test Item Value Reference Range Interpretation Comments Globulin (test code = 53326-3) 4.2 2.3-3.5 H [facility] CenterAlbumin/Globulin Anzct2317-17-68 06:21:00 * Test Item Value Reference Range Interpretation Comments Albumin/Globulin Ratio (test code = 1759-0) 0.6 0.8-2.0 L [facility] CenterAlkaline Irantfvdczn9765-10-23 06:21:00* Test Item Value Reference Range Interpretation Comments Alkaline Phosphatase (test code = 6768-6) 272 40-150 H [facility] CenterUrine Hmegp4970-27-52 01:32:00* Test Item Value Reference Range Interpretation Comments Urine Color (test code = 5778-6) YELLOW YELLOW [facility] CenterUrine Wrsoohe4135-18-62 01:32:00* Test Item Value Reference Range Interpretation Comments Urine Clarity (test code = 46822-5) CLOUDY CLEAR H [facility] CenterUrine Specific Rteefta9109-84-51 01:32:00 * Test Item Value Reference Range Interpretation Comments Urine Specific [place] (test code = 5811-5) 1.025 1.010-1.02 5 [facility] CenterUrine aI5597-55-02 01:32:00* Test Item Value Reference Range Interpretation Comments Urine pH (test code = 44491-3) 6 5-7 [facility] CenterUrine Leukocyte Rmargwxv7214-29-66 01:32:00* Test Item Value Reference Range Interpretation Comments Urine Leukocyte Esterase (test code = 5799-2) 2+ NEGATIVE H [facility] CenterUrine Shmilzy6024-17-90 01:32:00* Test Item Value Reference Range Interpretation Comments Urine Nitrite (test code = 65670-0) [facility]IT[facility]IVE [facility] Jdzgkox3565-82-96 01:32:00* Test Item Value Reference Range Interpretation Comments Urine Protein (test code = 5804-0) 3+ NEGATIVE [facility] ChildrenU[facility] Glucose (UA)2018-05-04 01:32:00* Test Item Value Reference Range Interpretation Comments Urine Glucose (UA) (test code = 2349-9) 1+ NEGATIVE H [facility] CenterUrine Dzjqein9728-66-76 01:32:00* Test Item Value Reference Range Interpretation Comments Urine Ketones (test code = 20099-7) NEGATIVE NEGATIVE [facility] Meimsgtnptbh5769-70-66 01:32:00* Test Item Value Reference Range Interpretation Comments Urine Urobilinogen (test code = 46335-3) 0.2 0.2-1 [facility] CenterUrine Ibwmrmspi5407-55-75 01:32:00* Test Item Value Reference Range Interpretation Comments Urine Bilirubin (test code = 1978-6) NEGATIVE NEGATIVE [facility] Dqmiu4362-95-55 01:32:00* Test Item Value Reference Range Interpretation Comments Urine Blood (test code = 46832-0) 4+ NEGATIVE H [facility] CenterUrine IGE1074-89-55 01:32:00* Test Item Value Reference Range Interpretation Comments Urine WBC (test code = 5821-4) >50 0-5 H [facility] CenterUrine TRH8361-88-31 01:32:00* Test Item Value Reference Range Interpretation Comments Urine RBC (test code = 50374-3) 21-50 0-5 H [facility] CenterUrine Evhhmwxq5904-27-43 01:32:00* Test Item Value Reference Range Interpretation Comments Urine Bacteria (test code = 69692-6) MANY NONE H [facility] CenterUrine Epithelial Zfwjx1923-50-86 01:32:00 * Test Item Value Reference Range Interpretation Comments Urine Epithelial Cells (test code = 74436-7) RARE NONE [facility] CenterInfluenza Virus Types A,B Antigen 2018-05-04 01:16:00* Test Item Value Reference Range Interpretation Comments Influenza Virus Types A,B Antigen (test code = 85505-5) NEGATIVE NEGATIVE [facility] CenterGroup A Streptococcus Bvsjdh6096-90-82 01:16:00* Test Item Value Reference Range Interpretation Comments Group A Streptococcus Screen (test code = 24725-7) NEGATIVE NEG ATIVE [facility] CenterInfluenza Virus Types A,B Antigen 2018-05-04 01:16:00* Test Item Value Reference Range Interpretation Comments Influenza Virus Types A,B Antigen (test code = 63160-8) NEGATIVE NEGATIVE [facility] CenterGroup A Streptococcus Yqihiz4016-26-48 01:16:00* Test Item Value Reference Range Interpretation Comments Group A Streptococcus Screen (test code = 02701-3) NEGATIVE NEG ATIVE [facility] CenterInfluenza Virus Types A,B Antigen 2018-05-04 01:16:00* Test Item Value Reference Range Interpretation Comments Influenza Virus Types A,B Antigen (test code = 49009-5) NEGATIVE NEGATIVE [facility] A Streptococcus Kkaqgx4637-03-66 01:16:00* Test Item Value Reference Range Interpretation Comments Group A Streptococcus Screen (test code = 69982-1) NEGATIVE NEG ATIVE [facility] CenterInfluenza Virus Types A,B Antigen 2018-05-04 01:16:00* Test Item Value Reference Range Interpretation Comments Influenza Virus Types A,B Antigen (test code = 45880-9) NEGATIVE NEGATIVE [facility] A Streptococcus Cqnugb2119-34-11 01:16:00* Test Item Value Reference Range Interpretation Comments Group A Streptococcus Screen (test code = 40715-8) NEGATIVE [facility]IVE [facility],B Antigen 2018-05-04 01:16:00* Test Item Value Reference Range Interpretation Comments Influenza Virus Types A,B Antigen (test code = 77661-9) NEGATIVE NEGATIVE [facility] A Streptococcus Zvyzpy7777-13-88 01:16:00* Test Item Value Reference Range Interpretation Comments Group A Streptococcus Screen (test code = 80157-0) NEGATIVE [facility]IVE [facility],B Antigen 2018-05-04 01:16:00* Test Item Value Reference Range Interpretation Comments Influenza Virus Types A,B Antigen (test code = 11299-9) NEGATIVE NEGATIVE [facility] A Streptococcus Zqrqhp3420-18-85 01:16:00* Test Item Value Reference Range Interpretation Comments Group A Streptococcus Screen (test code = 28573-6) NE[facility]IVE [facility]0635-02-55 18:18:00 [facility] [address] [address] Patient Name: MANIJT LUO MR #: [id number] : 1980 Age/Sex: 37/M Req #: [id number] Adm Physician: Ordered by: NORY LEYVA [employer] Report #: [id number] Location: ER Room/Bed: Procedure: 0311-[address]/CT [...] 6:38 PM Dictated By: ISMA FATIMA MD [facility] Signed By: ISMA FATIMA MD on 05/03/181837 Transcribed By: TIFFANY on 05/03/181837 COPY TO: NORY LEYVA NP CHEST SINGLE (NOT PORTABLE)2018-05-03 16:44:00 [address] [place] [address] Patient Name: MANJIT LUO MR #: [id number] : 1980 Age/Sex: 37/M Req #: [id number] Adm Physician: Ordered by: NORY LEYVA NP Report #: [id number] Location: ER Room/Bed: Procedure: 0311-007 2 DX/CHEST [...] 05/03/181644 COPY TO: NORY LEYVA NP Amylase Scrrf0948-52-47 15:32:00* Test Item Value Reference Range Interpretation Comments Amylase Level (test code = 1798-8) 62 [facility] 15:32:00* Test Item Value Reference Range Interpretation Comments Lipase (test code = 3040-3) [facility] Bjbnw3136-79-98 15:32:00* Test Item Value Reference Range Interpretation Comments Amylase Level (test code = 1798-8) 62 [facility]Lip[facility]2019-03-11 15:32:00* Test Item Value Reference Range Interpretation Comments Lipase (test code = 3040-3) [facility] Bneaq7204-48-47 15:32:00* Test Item Value Reference Range Interpretation Comments Amylase Level (test code = 1798-8) 62 [facility]Lip[facility]2019-03-11 15:32:00* Test Item Value Reference Range Interpretation Comments Lipase (test code = 3040-3) [facility] Hokvz6328-14-68 15:32:00* Test Item Value Reference Range Interpretation Comments Amylase Level (test code = 1798-8) 62 [facility]Lip[facility]2019-03-11 15:32:00* Test Item Value Reference Range Interpretation Comments Lipase (test code = 3040-3) 14 [facility] Riylp5593-74-17 15:32:00* Test Item Value Reference Range Interpretation Comments Amylase Level (test code = 1798-8) 62 25-125 [facility]Lip[facility]2019-03-11 15:32:00* Test Item Value Reference Range Interpretation Comments Lipase (test code = 3040-3) 14 [facility]Am[facility] Qwjiy2377-37-91 15:32:00* Test Item Value Reference Range Interpretation Comments Amylase Level (test code = 1798-8) 62 25-125 [facility]Lip[facility]2019-03-11 15:32:00* Test Item Value Reference Range Interpretation Comments Lipase (test code = 3040-3) [facility] Q[facility]dsbzr3510-83-25 01:39:00* Test Item Value Reference Range Interpretation Comments Blood Culture (test code = 39494858) NO GROWTH AFTER 5 DAYS, FINAL REPORT [facility] CenterBedside Mzkxytz1173-12-58 08:10:00* Test Item Value Reference Range Interpretation Comments Bedside Glucose (test code = 48370-1) 190 70-120 H Meter ID: [id number] Medical CenterUrine Culture 2017-09-01 06:38:00* Test Item Value Reference Range Interpretation Comments Urine Culture (test code = 630-4) Organism: PSEUDOMONAS AERUGINOSA [facility] CenterU[facility] Rbfnbzi4325-19-98 06:38:00* Test Item Value Reference Range Interpretation Comments Urine Culture (test code = 630-4) Organism: PSEUDOMONAS AERUGINOSA [facility] CenterU[facility] Fsbjuoo2359-66-03 06:38:00* Test Item Value Reference Range Interpretation Comments Urine Culture (test code = 630-4) Organism: PSEUDOMONAS AERUGINOSA [facility] Dkctmui4938-95-48 01:39:00* Test Item Value Reference Range Interpretation Comments Blood Culture (test code = 70982993) NO GROWTH AFTER 72 HOURS [facility] Butom8831-24-81 05:13:00* Test Item Value Reference Range Interpretation Comments Sodium Level (test code = 2951-2) 136 136-145 [facility] CenterPotassium Oswwm2973-89-34 05:13:00* Test Item Value Reference Range Interpretation Comments Potassium Level (test code = 2823-3) 4.7 3.5-5.1 [facility] CenterChloride Bjkbf0215-60-45 05:13:00* Test Item Value Reference Range Interpretation Comments Chloride Level (test code = 2075-0) 109 98-107 H [facility] CenterCarbon Dioxide Feyez0020-62-61 05:13:00* Test Item Value Reference Range Interpretation Comments Carbon Dioxide Level (test code = 2028-9) 20 22-29 L [facility] CenterAnion Fhi5972-36-67 05:13:00* Test Item Value Reference Range Interpretation Comments Anion Gap (test code = 90103-6) 11.7 8-16 [facility] CenterBlood Urea Xjikmeio4419-30-90 05:13:00* Test Item Value Reference Range Interpretation Comments Blood Urea Nitrogen (test code = 3094-0) 20 7-26 [facility] CenterCreatinine2018-07-09 05:13:00* Test Item Value Reference Range Interpretation Comments Creatinine (test code = 2160-0) 1.79 0.72-1.25 H [facility] CenterBUN/Creatinine Qsxme8897-38-99 05:13:00* Test Item Value Reference Range Interpretation Comments BUN/Creatinine Ratio (test code = 3097-3) 11 6-25 [facility] CenterEstimat Glomerular Filtration Rate 2017-08-31 05:13:00* Test Item Value Reference Range Interpretation Comments Estimat Glomerular Filtration Rate (test code = 04274-0) 43 >60 L Ranges were taken from the National Kidney Disease Education Program and the [facility] literature.Reference ranges:60 or greater: Ifrftp50-68 ( for 3 consecutive months): Chronic kidney disease 15 or less: Kidney failureBaptist Medical CenterGlucose Ibnak9349-70-97 05:13:00* Test Item Value Reference Range Interpretation Comments Glucose Level (test code = TNF3425) 165 74-118 H [facility] CenterCalcium Ywjfh2231-54-07 05:13:00* Test Item Value Reference Range Interpretation Comments Calcium Level (test code = 63352-7) 8.2 8.4-10.2 L [facility] Sduwbmvrm4408-83-18 05:11:00* Test Item Value Reference Range Interpretation Comments Total Bilirubin (test code = 1975-2) 0.5 0.2-1.2 [facility] CenterAspartate Amino Transf (AST/SGOT) 2017-08-30 05:11:00* Test Item Value Reference Range Interpretation Comments Aspartate Amino Transf (AST/SGOT) (test code = Aspartate Amino Transf (AST/SGOT)) 14 5-34 [facility] CenterAlanine Aminotransferase (ALT/SGPT) 2017-08-30 05:11:00* Test Item Value Reference Range Interpretation Comments Alanine Aminotransferase (ALT/SGPT) (test code = 1742-6) 40 0-55 [facility] CenterTotal Qsxksuf3455-90-99 05:11:00* Test Item Value Reference Range Interpretation Comments Total Protein (test code = 2885-2) 7.4 6.5-8.1 [facility] CenterAlbumin2018-07-08 05:11:00* Test Item Value Reference Range Interpretation Comments Albumin (test code = 1751-7) 2.8 3.5-5.0 L [facility] CenterGlobulin2018-07-08 05:11:00* Test Item Value Reference Range Interpretation Comments Globulin (test code = 08244-5) 4.6 2.3-3.5 H [facility] CenterAlbumin/Globulin Urmsa0427-24-47 05:11:00 * Test Item Value Reference Range Interpretation Comments Albumin/Globulin Ratio (test code = 1759-0) 0.6 0.8-2.0 L [facility] CenterAlkaline Hitkdauluhf1639-68-30 05:11:00* Test Item Value Reference Range Interpretation Comments Alkaline Phosphatase (test code = 6768-6) 234 40-150 H [facility] CenterWhite Blood Bozsl6342-00-89 04:54:00* Test Item Value Reference Range Interpretation Comments White Blood Count (test code = 6690-2) 5.33 4.8-10.8 [facility] CenterRed Blood Rhcpb4106-08-87 04:54:00* Test Item Value Reference Range Interpretation Comments Red Blood Count (test code = 789-8) 3.61 4.3-5.7 L [facility] CenterHemoglobin2018-07-08 04:54:00* Test Item Value Reference Range Interpretation Comments Hemoglobin (test code = 65846-5) 9.4 14.0-18.0 L [facility] CenterHematocrit2018-07-08 04:54:00* Test Item Value Reference Range Interpretation Comments Hematocrit (test code = 4544-3) 29.6 38.2-49.6 L [facility] CenterMean Corpuscular Nwulrb6783-45-19 04:54:00* Test Item Value Reference Range Interpretation Comments Mean Corpuscular Volume (test code = 787-2) 82.0 81-99 [facility] CenterMean Corpuscular Ctqihjqboj6836-18-27 04:54:00* Test Item Value Reference Range Interpretation Comments Mean Corpuscular Hemoglobin (test code = 785-6) 26.0 28-32 L [facility] CenterMean Corpuscular Hemoglobin Concent 2017-08-30 04:54:00* Test Item Value Reference Range Interpretation Comments Mean Corpuscular Hemoglobin Concent (test code = 786-4) 31.8 31-35 [facility] CenterRed Cell Distribution Dckoj3629-58-20 04:54:00* Test Item Value Reference Range Interpretation Comments Red Cell Distribution Width (test code = 15534-5) 16.5 11.7 -14.4 H [facility] CenterPlatelet Wgcpa5976-85-63 04:54:00* Test Item Value Reference Range Interpretation Comments Platelet Count (test code = 777-3) 115 140-360 L [facility] CenterNeutrophils (%) (Auto)2017-08-30 04:54:00 * Test Item Value Reference Range Interpretation Comments Neutrophils (%) (Auto) (test code = 96490-2) 73.6 38.7-80.0 [facility] CenterLymphocytes (%) (Auto)2017-08-30 04:54:00 * Test Item Value Reference Range Interpretation Comments Lymphocytes (%) (Auto) (test code = 736-9) 13.9 18.0-39.1 L [facility] CenterMonocytes (%) (Auto)2017-08-30 04:54:00* Test Item Value Reference Range Interpretation Comments Monocytes (%) (Auto) (test code = 5905-5) 9.8 4.4-11.3 [facility] CenterEosinophils (%) (Auto)2017-08-30 04:54:00 * Test Item Value Reference Range Interpretation Comments Eosinophils (%) (Auto) (test code = 713-8) 2.1 0.0-6.0 [facility] CenterBasophils (%) (Auto)2017-08-30 04:54:00* Test Item Value Reference Range Interpretation Comments Basophils (%) (Auto) (test code = 706-2) 0.2 0.0-1.0 [facility] CenterIM GRANULOCYTES %2017-08-30 04:54:00* Test Item Value Reference Range Interpretation Comments IM GRANULOCYTES % (test code = IM GRANULOCYTES %) 0.4 0.0- 1.0 [facility] CenterNeutrophils # (Auto)2017-08-30 04:54:00* Test Item Value Reference Range Interpretation Comments Neutrophils # (Auto) (test code = 751-8) 3.9 2.1-6.9 [facility] CenterLymphocytes # (Auto)2017-08-30 04:54:00* Test Item Value Reference Range Interpretation Comments Lymphocytes # (Auto) (test code = 47655-0) 0.7 1.0-3.2 L [facility] CenterMonocytes # (Auto)2017-08-30 04:54:00* Test Item Value Reference Range Interpretation Comments Monocytes # (Auto) (test code = 742-7) 0.5 0.2-0.8 [facility] CenterEosinophils # (Auto)2017-08-30 04:54:00* Test Item Value Reference Range Interpretation Comments Eosinophils # (Auto) (test code = 711-2) 0.1 0.0-0.4 [facility] CenterBasophils # (Auto)2017-08-30 04:54:00* Test Item Value Reference Range Interpretation Comments Basophils # (Auto) (test code = 704-7) 0.0 0.0-0.1 [facility] CenterAbsolute Immature Granulocyte (auto 2017-08-30 04:54:00* Test Item Value Reference Range Interpretation Comments Absolute Immature Granulocyte (auto (shin t code = Absolute Immature Granulocyte (auto) 0.02 0-0.1 [facility] CenterLactic Acid Yypuu8555-74-19 02:07:00* Test Item Value Reference Range Interpretation Comments Lactic Acid Level (test code = Lactic Acid Level) 6.9 4.5- 19.8 [facility] CenterLactic Acid Givty5498-08-26 02:07:00* Test Item Value Reference Range Interpretation Comments Lactic Acid Level (test code = Lactic Acid Level) 6.9 4.5- 19.8 [facility] CenterLactic Acid Nuryb6602-56-39 02:07:00* Test Item Value Reference Range Interpretation Comments Lactic Acid Level (test code = Lactic Acid Level) 6.9 4.5- 19.8 [facility] CenterUrine Wngdb5687-04-69 01:57:00* Test Item Value Reference Range Interpretation Comments Urine Color (test code = 5778-6) RED YELLOW H [facility] CenterUrine Yekmtxe0308-57-86 01:57:00* Test Item Value Reference Range Interpretation Comments Urine Clarity (test code = 71458-6) CLOUDY CLEAR H [facility] CenterUrine Specific Vkjikui8527-92-24 01:57:00 * Test Item Value Reference Range Interpretation Comments Urine Specific [place] (test code = 5811-5) 1.020 1.010-1.02 5 [facility] CenterUrine xE2834-24-83 01:57:00* Test Item Value Reference Range Interpretation Comments Urine pH (test code = 81704-4) 6 5-7 [facility] Leukocyte Zpikqgtp8939-66-38 01:57:00* Test Item Value Reference Range Interpretation Comments Urine Leukocyte Esterase (test code = 5799-2) 2+ NEGATIVE H [facility] Mpgiyit2534-44-09 01:57:00* Test Item Value Reference Range Interpretation Comments Urine Nitrite (test code = 73264-5) NEGATIVE NEGATIVE [facility] Prphyfk8916-16-45 01:57:00* Test Item Value Reference Range Interpretation Comments Urine Protein (test code = 5804-0) 3+ NEGATIVE H [facility] Glucose (UA)2017-08-29 01:57:00* Test Item Value Reference Range Interpretation Comments Urine Glucose (UA) (test code = 2349-9) NEGATIVE NEGATIVE [facility] Pcoaotl6130-83-78 01:57:00* Test Item Value Reference Range Interpretation Comments Urine Ketones (test code = 05831-0) NEGATIVE NEGATIVE [facility] Bpzzgvqoiymg4529-68-55 01:57:00* Test Item Value Reference Range Interpretation Comments Urine Urobilinogen (test code = 89349-1) 0.2 0.2-1 [facility] Abvepylqr7532-85-23 01:57:00* Test Item Value Reference Range Interpretation Comments Urine Bilirubin (test code = 1978-6) 1+ NEGATIVE H Confirmatory test currently unavailable. False positive results may occur.[facility] Iitig1302-48-40 01:57:00* Test Item Value Reference Range Interpretation Comments Urine Blood (test code = 54129-9) 3+ NEGATIVE H [facility] SXS3319-47-74 01:57:00* Test Item Value Reference Range Interpretation Comments Urine WBC (test code = 5821-4) 50- 0-5 H [facility] CenterUrine FKC4930-83-35 01:57:00* Test Item Value Reference Range Interpretation Comments Urine RBC (test code = 62326-2) 50- 0-5 H [facility] CenterUrine Zgvrbbsz4439-76-44 01:57:00* Test Item Value Reference Range Interpretation Comments Urine Bacteria (test code = 49895-3) FEW NONE [facility] CenterUrine Epithelial Ppjqc5979-57-30 01:57:00 * Test Item Value Reference Range Interpretation Comments Urine Epithelial Cells (test code = 97298-5) RARE NONE [facility] CenterCHEST SINGLE (PORTABLE)2017-08-29 01:52:00 [facility] [address] [address] Patient Name: MANJIT LUO MR #: [id number] : 1980 Age/Sex: 37/M Req #: [id number] Adm Physician: Ordered by: MARIELLE MARSH MD Report #: [id number] Location: ER Room/Bed: Procedure: [id number] DX/CHEST SINGLE (ALONDRA BLE) Exam Date: 08/29/17 [...] 08/29/17152 COPY TO: MARIELLE MARSH MD Magnesium Kuopi5614-35-39 00:45:00* Test Item Value Reference Range Interpretation Comments Magnesium Level (test code = 63059-5) 1.3 1.3-2.1 [facility] [place] [address] Patient Name: MANJIT LUO MR #: [id number] : 1980 Age/Sex: 36/M Req #: [id number] Adm Physician: Ordered by: MARGAUX HILLS MD Report #: [id number] Location: ER Room/Bed: Procedure: [id number] CT/CT ABDOMEN/PELVIS WO Exam Date: 01/25/17 Exam Time: 0222 REPORT STATUS: Signed EXAM: CT Abdomen and [...]
[2019-08-05] MEDS: FLUCONAZOLE 200 MG/100 ML 100 ML IV SCH ×2 (00:05→21:30)
[2019-08-05] MEDS ORDERED: MORPHINE SULFATE 2 MG/ML SYR 1ML IV STA (00:38)
[2019-08-05] MEDS ORDERED: MORPHINE SULFATE INJ 4 MG/ML INJ 1ML ONE (01:02)
[2019-08-05] MEDS ORDERED: MAG-OXIDE400 MG PO (05:04)
[2019-08-05] MEDS ORDERED: NIFEDIPINE ER30 MG PO (05:04)
[2019-08-05] MEDS ORDERED: SODIUM BICARBO650 MG PO (05:04)
[2019-08-05] MEDS ORDERED: LANTUS 3ML100 UNITS/ SC (05:04)
--- NOTE | 2019-08-05 06:24 | NUR ---
dictaqed [id number]
--- NOTE | 2019-08-05 07:02 | NUR ---
Report to PRUDENCE Tay
--- NOTE | 2019-08-05 08:34 | NUR ---
CALLED LAB FOR REDRAW.
[2019-08-05] MEDS: INSULIN REGULAR, HUMAN 100 UNIT/1 ML 3ML VIAL SQ SCH ×4 (08:50→21:30)
[2019-08-05] MEDS: MORPHINE SULFATE INJ 4 MG/ML INJ 1ML IV PRN ×3 (09:04→22:00)
[2019-08-05] MEDS: ONDANSETRON HCL INJ 2MG/ML 2ML 2 MG/ML VIAL IV PRN ×2 (09:04→22:00)
--- NOTE | 2019-08-05 09:05 | NUR ---
CENTRAL LINE NOT SUTURED IN PLACE, DSG NOT INTACT, LINES DONT RETURN BLOOD, +FLUSHES X 2 LINES. DSG CHANGED, WILL VERIFY WITH MD REGARDING STATUS OF LINE AND NOT USED AT ALL FOR ANY REASON UNTIL VERIFIED WITH MD.
[2019-08-05 09:11] LABS: BASOPHILS % 0.4 % (0.0-1.0); EOSINOPHILS # (AUTO) 0.1 (0.0-0.4); EOSINOPHILS % 1.8 % (0.0-6.0); HEMATOCRIT 31.7 % (38.2-49.6); HEMOGLOBIN 9.9 g/dL (14.0-18.0); LYMPHOCYTES # (AUTO) 1.1 (1.0-3.2); LYMPHOCYTES % 19.8 % (18.0-39.1); MEAN CORPUSCULAR HEMOGLOBIN 24.9 pg (28-32); MEAN CORPUSCULAR HGB CONC 31.2 g/dL (31-35); MEAN CORPUSCULAR VOLUME 79.8 fL (81-99); MONOCYTES # (AUTO) 0.6 (0.2-0.8); MONOCYTES % 10.3 % (4.4-11.3); NEUTROPHILS # (AUTO) 3.7 (2.1-6.9); NEUTROPHILS % 67.1 % (38.7-80.0); PLATELET COUNT 98 x10e3/uL (140-360); RED BLOOD COUNT 3.97 x10e6/uL (4.3-5.7); RED CELL DISTRIBUTION WIDTH 15.3 % (11.7-14.4)
--- NOTE | 2019-08-05 09:11 | NUR ---
LAB DRAWING AM LABS
--- NOTE | 2019-08-05 09:17 | NUR ---
LLOYD HERE TO SEE PT
[2019-08-05 09:22] LABS: INR 1.18; PROTHROMBIN TIME 15.8 seconds (11.9-14.5)
[2019-08-05 09:23] LABS: PARTIAL THROMBOPLASTIN TIME 39.3 seconds (23.8-35.5)
[2019-08-05] MEDS ORDERED: FAMOTIDINE 20 MG/2 ML VIAL IV STA (09:27)
[2019-08-05 09:32] LABS: ALBUMIN 2.2 g/dL (3.5-5.0); ALBUMIN/GLOBULIN RATIO 0.5 (0.8-2.0); ANION GAP 12.7 mmol/L (8-16); CALCIUM 7.7 mg/dL (8.4-10.2); CREATININE, SERUM 5.55 mg/dL (0.72-1.25); POTASSIUM 3.7 mmol/L (3.5-5.1)
[2019-08-05] MEDS ORDERED: ACETAMINOPHEN 1000 MG/100 ML IV PRN (09:45)
[2019-08-05 09:53] LABS: CREATINE KINASE MB 1.2 ng/mL (0-5.0)
[2019-08-05] MEDS: PROMETHAZINE 12.5MG/ NACL 0.9% 12.5 MG/50 ML BAG IV PRN (10:27)
[2019-08-05] MEDS: METOCLOPRAMIDE HCL 10 MG/2ML VIAL IV SCH ×3 (10:27→22:00)
[2019-08-05] MEDS ORDERED: PROMETHAZINE HCL (IM) 25 MG/ML VIAL ONE (10:27)
[2019-08-05 13:40] VITALS: BP 140/99
--- NOTE | 2019-08-05 13:40 | NUR ---
PATIENT RECEIVED FROM ER PER STRETCHER. ALERT AND VERBALLY RESPONSIVE, ABLE TO TRANSFER SELF TO BED. SKIN WARM AND DRY TO TOUCH, RESPIRATION EVEN AND UNLABORED, ABDOMEN SOFT AND NON DISTENDED. TELEMETRY BOX [address]. SUPRAPUBIC CATHETER WITH 200CC OF CLOUDY URINE REMOVED, PERITONEAL DIALYSIS PORT INTACT TO RIGHT LOWER ABDOMEN. BED IN LOWER POSITION, CALL LIGHT AT REACH, INSTRUCTED TO CALL FOR ASSISTANCE NEEDED.
[2019-08-05 13:44] VITALS: BP 140/99
[2019-08-05] MEDS: SODIUM BICARBONATE 650 MG TAB PO SCH ×2 (15:44→21:30)
[2019-08-05] MEDS: MAGNESIUM OXIDE 400 MG TAB PO SCH ×2 (15:44→21:30)
[2019-08-05 16:00] VITALS: BP 137/97
--- NOTE | 2019-08-05 16:05 | NUR ---
CONSENT SIGNED FOR PERITONEAL DIALYSIS. DR MAY IN TO SEE PATIENT, NEW ORDER RECEIVED.
--- NOTE | 2019-08-05 16:34 | Consultation ---
DATE OF CONSULTATION: 08/05/2019 REASON FOR CONSULTATION: Peritoneal dialysis. HISTORY OF PRESENT ILLNESS: A 39-year-old male with end-stage renal disease, on peritoneal dialysis, who presented with 2-day history of fevers, chills and right flank pain. The patient just recently finished IV antibiotics for urinary tract infection and was actually to have the tunneled central line removed when he developed fevers, chills, purulent appearing urine and flank pain and was instructed to come to the emergency room. The patient was admitted. Nephrology and Infectious Disease consultations were called. The patient recently had nephrectomy. REVIEW OF SYSTEMS: A 12-point review of systems completed. All systems negative other than the HPI above. PAST MEDICAL HISTORY: 1. End-stage renal disease, on peritoneal dialysis at [facility]. 2. Neurogenic bladder. 3. Type 1 diabetes. 4. Peripheral neuropathy. 5. Hypertension. 6. Anemia secondary to chronic kidney disease. 7. Diabetic retinopathy. 8. Recurrent urinary tract infections. 9. History of right nephrectomy secondary to hydronephrosis and frequent infections. 10. Diabetic gastroparesis. PAST SURGICAL HISTORY: 1. PD catheter placement. 2. Suprapubic catheter due to neurogenic bladder. 3. Cataract surgery. 4. Cholecystectomy. 5. Right knee surgery. 6. Nephrectomy. 7. Tunneled dialysis catheter placement and removal. SOCIAL HISTORY: No tobacco. No alcohol. He is a [employer] . FAMILY HISTORY: No kidney disease. ALLERGIES: IODINE. CURRENT MEDICATIONS: See list. PHYSICAL EXAMINATION: VITAL SIGNS: Blood pressure 103/68 to 164/95, pulse 84 to 79, respiratory rate 18, temperature 97.4. GENERAL: No apparent distress. HEENT: Oropharynx clear. No scleral icterus. No peripheral edema. NECK: Supple. CHEST: Clear to auscultation anteriorly bilaterally. CARDIOVASCULAR: Regular rate and rhythm. ABDOMEN: Soft. Positive bowel sounds. No tenderness. No rebound. EXTREMITIES: Trace edema. No clubbing. No cyanosis. SKIN: Warm. : Barcenas catheter with purulent appearing urine. LABORATORY DATA: Sodium 136, potassium 4.2, chloride 108, CO2 17, BUN 23, creatinine 5.20, calcium 7, albumin 2.3, hemoglobin 10.6, white count 7.39, platelets 115. ASSESSMENT AND PLAN: 1. End-stage renal disease. We will continue peritoneal dialysis. The patient to have 2 L, 5 exchanges, 1.5% Dianeal. 2. Anemia secondary to chronic kidney disease. We will start the patient on Epogen. 3. Lytes acceptable. Follow up potassium. 4. Pyuria. Urine cultures pending. Infectious Disease consulted. 5. Hypertension. Resume home medications. 6. Hypocalcemia, corrected for albumin in normal range. MD DARRON Pisano/MODL /[id number]
[2019-08-05] MEDS: FAMOTIDINE 20 MG/2 ML VIAL IV SCH (17:00)
[2019-08-05] MEDS: NIFEDIPINE CR 30 MG TAB PO SCH (17:00)
--- NOTE | 2019-08-05 17:29 | History and Physical ---
CHIEF COMPLAINT: Intractable nausea and vomiting, fever, generalized pain, and weakness. HISTORY OF PRESENT ILLNESS: The patient is a 39 years old male pending for renal transplant. The patient had right nephrectomy previously this year by Dr. Castro Jalloh. The patient came in complaining of increase in high temperature and chills, generalized weakness, nausea and vomiting. The patient also has foul for odor urine from the suprapubic catheter. The patient was previously with multiresistant bacteria on urinary tract infection. The patient is otherwise stable at this time. Other than his nausea and vomiting he is not in any respiratory distress. His COVID-19 PCR is still pending. PAST MEDICAL HISTORY: Right nephrectomy. End-stage renal disease on peritoneal dialysis. Suprapubic catheter due to neurogenic urinary bladder. Diabetes type 2, on insulin treatment. Gastroparesis. Lower extremity osteoarthritis with multiple surgery in the past. Cholecystectomy. Knee replacement. Right lower leg multiple surgery at age 4 and then subsequently work related injury to the right lower extremity as well. Peritoneal dialysis catheter. Right nephrectomy. SOCIAL HISTORY: The patient lives with his spouse. He does not smoke or use alcohol. No regular drug. PHYSICAL EXAMINATION: VITAL SIGNS: Temperature is 103.3, blood pressure 99/80, pulse rate 120, respirations 22. GENERAL: The patient is more comfortable. He is not in distress. HEENT: Normocephalic, atraumatic, and anicteric. NECK: Supple grossly. PULMONARY: Diminished breath sounds. CARDIOVASCULAR: Tachycardia. ABDOMEN: Soft. Peritoneal dialysis catheter. Suprapubic catheter. Generalized discomfort. No guarding. No distention. EXTREMITIES: No cyanosis or edema. NEUROLOGIC: No focal deficit. LABORATORY DATA: Sodium is 136, potassium 4.2, chloride 108, bicarb 17, BUN 23, creatinine 5.0, glucose 189. Urinalysis WBC greater than 50, many bacteria, small leukocyte esterase. WBC 7.4, hemoglobin 10.6, hematocrit 34, and platelets is 116,000. COVID-19 serology pending. Abdomen and pelvis CT scan showed limited study without intravenous contrast, so the patient is status post right nephrectomy. Urinary bladder thickening. Chronic pancreatitis. Splenomegaly. Chest x-ray otherwise unremarkable. IMPRESSION: 1. SIRS associated with fever and recurrent complicated urinary tract infection with Barcenas suprapubic catheter. The patient lactic acid level was normal. 2. End-stage renal disease, on peritoneal dialysis. 3. Intractable nausea and vomiting, multiple factors, but mostly also from the above. 4. Multiple baseline problems. PLAN: Continue with IV antibiotics. Antiemetic. Consultation with Dr. Lew Karimi. The patient will need peritoneal dialysis. Repeat lab work. Check the patient's fever. Tylenol p.r.n. We will monitor the patient closely at this time. MD SADA Haywood/NOREEN /[id number]
--- NOTE | 2019-08-05 19:05 | NUR ---
Completed bedside nursing shift report with morning nurse. Pt alert and oriented to name, lying in bed HOB 30 degrees. Denies pain at this time. Call light within reach. Bed low and locked. Will continue to monitor.
[2019-08-05 20:00] VITALS: BP 139/98
[2019-08-05] MEDS: MEROPENEM 500MG/ NS 50ML 50 ML IV SCH (21:30)
[2019-08-05] MEDS ORDERED: SODIUM CHLORIDE 0.9% 250ML 250 ML ONE (22:03)
--- NOTE | 2019-08-05 22:25 | NUR ---
REPORT GIVEN TO NIGHT NURSE. PT STABLE, NO ACUTE DISTRESS.
[2019-08-05 22:27] VITALS: BP 139/98
--- NOTE | 2019-08-05 22:36 | Consultation ---
DATE OF CONSULTATION: REASON FOR CONSULTATION: This patient has fever and chills. HISTORY OF PRESENT ILLNESS: This patient is well known to me, 39-year-old male, who has severe end-stage renal disease, on peritoneal dialysis, osteomyelitis, UTI. The patient was recently in the hospital. He was discharged with IV antibiotic. He has come in with fever and chills and not feeling well, no diarrhea, no nausea, no vomiting. The patient who had a CAT scan of abdomen and pelvis, which was a limited study, status post right nephrectomy. There is small soft tissue versus phlegmon in the right side. His blood cultures were still pending. His white count is 5.4, hemoglobin of 9.9. Sodium 135, creatinine 5.5. The patient received 1 g of vancomycin. He was also started on fluconazole and meropenem. The patient is currently lying in bed. He is complaining of fever. PHYSICAL EXAMINATION: GENERAL: He is currently alert, oriented, does not seem to be in acute distress. VITAL SIGNS: Stable. Currently afebrile. HEENT: He is not icteric. NECK: Supple. CHEST: Clear bilateral. HEART: S1 and S2. No S3, S4, or murmur. ABDOMEN: Soft. IMPRESSION: Fever and chills, concerned about viral infection. Agree with blood cultures, urine cultures. He received a dose of vancomycin. Continue meropenem. Continue fluconazole. Further recommendations to follow. MD PIPPA Steel/NOREEN /[id number]
--- NOTE | 2019-08-05 23:01 | NUR ---
Received report from nurse.
[2019-08-06] VITALS (8 sets, daily range): BP systolic 121–142; BP diastolic 74–90
--- NOTE | 2019-08-06 02:41 | NUR ---
Patient resting quitly. Dialysis running with no difficulty noted. Suprapubic draining at bedside.
[2019-08-06] MEDS: METOCLOPRAMIDE HCL 10 MG/2ML VIAL IV SCH ×4 (04:00→21:31)
[2019-08-06] MEDS: MORPHINE SULFATE INJ 4 MG/ML INJ 1ML IV PRN ×3 (04:21→18:20)
[2019-08-06] MEDS: ONDANSETRON HCL INJ 2MG/ML 2ML 2 MG/ML VIAL IV PRN ×2 (04:22→18:20)
--- NOTE | 2019-08-06 07:21 | NUR ---
PATIENT IN BED RESTING WITH NO S/S OF DISTRESS. PERITONEAL DIALYSIS IN PROGRESS. BED IN LOWER POSITION, CALL LIGHT AT REACH.
[2019-08-06] MEDS: INSULIN REGULAR, HUMAN 100 UNIT/1 ML 3ML VIAL SQ SCH ×4 (07:30→21:05)
--- NOTE | 2019-08-06 08:43 | NUR ---
PERITONEAL DIALYSIS COMPLETED AT THIS TIME. 217 ML REMOVED PER DIALYSIS NURSE. PATIENT IN BED WITH CALL LIGHT AT REACH.
[2019-08-06] MEDS: MAGNESIUM OXIDE 400 MG TAB PO SCH ×3 (09:09→20:04)
[2019-08-06] MEDS: FAMOTIDINE 20 MG/2 ML VIAL IV SCH ×2 (09:09→17:31)
[2019-08-06] MEDS: NIFEDIPINE CR 30 MG TAB PO SCH ×2 (09:10→17:31)
[2019-08-06] MEDS: SODIUM BICARBONATE 650 MG TAB PO SCH ×3 (09:10→20:04)
--- NOTE | 2019-08-06 10:08 | NUR ---
DR MYNOR KATE IN TO SEE PATIENT, NEW ORDER RECEIVED TO DISCONTINUE THE CENTRAL LINE TO LEFT UPPER CHEST.
--- NOTE | 2019-08-06 10:13 | Progress Note ---
DATE: SUBJECTIVE: The patient is seen and evaluated. Available labs and notes reviewed. REVIEW OF SYSTEMS: No nausea, vomiting, fever, chills has resolved. The patient still has slight amount of chills, but fever mostly resolved, admitted with 103.3. Temperature gradually improved and went down to 95.7, now is max at 99.5. Clinically, no acute distress. PHYSICAL EXAMINATION: GENERAL: Alert and oriented. No acute distress. CV: S1 and S2. CHEST: Equal expansion. Clear to auscultation. No acute distress. ABDOMEN: Soft and nontender. No distention. HEENT: Moist. No pallor. No JVD. EXTREMITIES: Weak, moves all. MEDICATIONS: Medication list reviewed and as far as Infectious Disease point of view, the patient is on meropenem, Diflucan, and had a dose of vancomycin IV on 08/03. LABORATORY STUDIES: White count of 5.45, hemoglobin 9.9, and platelet 98. No new BMP. Creatinine is 5.5. The patient receives peritoneal dialysis. MICROBIOLOGY: Blood culture negative 24 hours. Urine culture in progress. RADIOLOGY STUDIES: CT of abdomen and pelvis showed chronic cystitis. Also right inguinal and iliac chain lymphadenopathy with splenomegaly. No left nephrolithiasis. The patient has a history of right nephrectomy. Chest x-ray 08/03, showed mild central peribronchial cuffing. No definite focal consolidation. ASSESSMENT AND PLAN: Fever-concern viral syndrome. I will follow up with coronavirus. Novel coronavirus PCR from 08/03, which is still pending. Continue with antibiotics as above. Follow up with the cultures. Clinically feels better and fever improved significantly, so are the chills. The patient has no diarrhea. Left upper chest central line noted. Please refer to chart for more information. Discussed with Dr. Blum in details. Dictated by Lonny Lomas PA-C (Al) Ciro Blum MD /MODL /[id number]
--- NOTE | 2019-08-06 11:57 | NUR ---
UNABLE TO DISCONTINUE THE CENTRAL, PA NOTIFIED. NEW ORDER RECEIVED.
--- NOTE | 2019-08-06 15:29 | NUR ---
SONG CATHETER IRRIGATED ORDERED. PATIENT IN BED RESTING, CALL LIGHT AT REACH.
[2019-08-06] MEDS: FLUCONAZOLE 200 MG/100 ML 100 ML IV SCH (20:35)
[2019-08-06] MEDS: MEROPENEM 500MG/ NS 50ML 50 ML IV SCH (21:26)
[2019-08-07] VITALS (11 sets, daily range): BP systolic 93–121; BP diastolic 58–82
[2019-08-07] MEDS: MORPHINE SULFATE INJ 4 MG/ML INJ 1ML IV PRN ×4 (00:27→19:15)
[2019-08-07] MEDS: ACETAMINOPHEN 325 MG TAB PO PRN (03:34)
[2019-08-07] MEDS: METOCLOPRAMIDE HCL 10 MG/2ML VIAL IV SCH ×4 (03:40→22:00)
[2019-08-07] MEDS: ONDANSETRON HCL INJ 2MG/ML 2ML 2 MG/ML VIAL IV PRN ×2 (06:24→13:00)
--- NOTE | 2019-08-07 07:18 | NUR ---
PATIENT SITTING UP IN BED, NO DISTRESS NOTED. PERITONEAL DIALYSIS IN PROGRESS. BED IN LOWER POSITION, CALL LIGHT AT REACH.
[2019-08-07] MEDS: INSULIN REGULAR, HUMAN 100 UNIT/1 ML 3ML VIAL SQ SCH ×4 (07:30→22:36)
[2019-08-07] MEDS: NIFEDIPINE CR 30 MG TAB PO SCH ×2 (09:00→17:00)
[2019-08-07] MEDS: MAGNESIUM OXIDE 400 MG TAB PO SCH ×3 (09:20→22:22)
[2019-08-07] MEDS: SODIUM BICARBONATE 650 MG TAB PO SCH ×3 (09:20→22:22)
[2019-08-07] MEDS: FAMOTIDINE 20 MG/2 ML VIAL IV SCH ×2 (09:20→17:21)
--- NOTE | 2019-08-07 10:00 | NUR ---
PERITONEAL DIALYSIS COMPLETED, 886 ML REMOVED PER DIALYSIS NURSE.
--- NOTE | 2019-08-07 14:44 | Progress Note ---
DATE: SUBJECTIVE: The patient is seen and evaluated. Available labs and notes reviewed. Discussed with the nurse and discussed with the patient. REVIEW OF SYSTEMS: Still with low-grade temperature, but overall feels better. Appetite is good. No nausea, vomiting, chest pain or shortness of breath. Pain is controlled. OBJECTIVE: VITAL SIGNS: Temperature is 99.7 with a max at 100.0 past 24 hours, pulse 88, respirations 18, and blood pressure 94/68. GENERAL: Remains with left upper chest central line. CV: S1 and S2. CHEST: Equal expansion. Clear to auscultation. ABDOMEN: Soft. No distention. No tenderness with a dialysis port. EXTREMITIES: Moves all. No significant edema, however, weak. MEDICATIONS: Medication list is reviewed. From Infectious Disease point of view, patient is on Merrem and Diflucan. LABORATORY DATA: No new CBC or BMP from today. Serology: COVID-19 not detected/08/04/2019. Microbiology, blood culture 08/04/2019 is negative. Urine culture on 08/04/2019 showed Enterococcus faecalis, and yeast. Enterococcus is not VRE. IMAGING: No new radiology studies available. ASSESSMENT AND PLAN: 1. Fever, resolved, concerned with viral infection. Urine culture as above, concerned with urinary tract infection. 2. Renal failure on peritoneal dialysis. Abdomen is soft and nontender. No obvious signs of peritonitis. 3. Continue with antibiotics, discussed with the nurse, plan to remove the central line tomorrow by Interventional Radiology, overall, seems to be better. Monitor temperature. Further management of this patient is based on daily findings on laboratory and physical examination. 4. Please refer to chart for more information. Discussed with Dr. Blum in detail. Dictated by Lonny Lomas PA-C (Al) Ciro Blum MD /MODL /[id number]
--- NOTE | 2019-08-07 15:59 | NUR ---
CATHETER IRRIGATED ORDERED. MD IN TO SEE PATIENT, NEW ORDERS RECEIVED.
--- NOTE | 2019-08-07 18:53 | NUR ---
BEDSIDE SHIFT REPORT GIVEN TO ON COMING NURSE. PATIENT IN BED WITH CALL LIGHT AT REACH.
[2019-08-07] MEDS: MEROPENEM 500MG/ NS 50ML 50 ML IV SCH (21:30)
[2019-08-07] MEDS: FLUCONAZOLE 200 MG/100 ML 100 ML IV SCH (22:23)
[2019-08-08] VITALS (9 sets, daily range): BP systolic 109–139; BP diastolic 78–89
[2019-08-08] MEDS: ACETAMINOPHEN 325 MG TAB PO PRN (00:19)
[2019-08-08] MEDS: MORPHINE SULFATE INJ 4 MG/ML INJ 1ML IV PRN ×4 (01:28→20:00)
[2019-08-08] MEDS: PROMETHAZINE 12.5MG/ NACL 0.9% 12.5 MG/50 ML BAG IV PRN (01:28)
[2019-08-08] MEDS: METOCLOPRAMIDE HCL 10 MG/2ML VIAL IV SCH ×4 (04:00→22:00)
[2019-08-08 06:05] LABS: BASOPHILS % 0.6 % (0.0-1.0); EOSINOPHILS # (AUTO) 0.1 (0.0-0.4); EOSINOPHILS % 2.7 % (0.0-6.0); HEMATOCRIT 30.8 % (38.2-49.6); HEMOGLOBIN 9.8 g/dL (14.0-18.0); LYMPHOCYTES # (AUTO) 1.2 (1.0-3.2); LYMPHOCYTES % 25.5 % (18.0-39.1); MEAN CORPUSCULAR HEMOGLOBIN 25.6 pg (28-32); MEAN CORPUSCULAR HGB CONC 31.8 g/dL (31-35); MEAN CORPUSCULAR VOLUME 80.4 fL (81-99); MONOCYTES # (AUTO) 0.6 (0.2-0.8); MONOCYTES % 11.9 % (4.4-11.3); NEUTROPHILS # (AUTO) 2.8 (2.1-6.9); NEUTROPHILS % 58.9 % (38.7-80.0); PLATELET COUNT 143 x10e3/uL (140-360); RED BLOOD COUNT 3.83 x10e6/uL (4.3-5.7); RED CELL DISTRIBUTION WIDTH 15.1 % (11.7-14.4)
[2019-08-08 06:26] LABS: ALBUMIN 1.8 g/dL (3.5-5.0); ANION GAP 14.7 mmol/L (8-16); CALCIUM 7.3 mg/dL (8.4-10.2); CREATININE, SERUM 5.87 mg/dL (0.72-1.25); POTASSIUM 3.7 mmol/L (3.5-5.1)
--- NOTE | 2019-08-08 07:00 | NUR ---
received bedside report. pt is alert resting in bed receiving peritoneal dialysis, no s/s of distress noted. pt is requesting pain medicine, c/o pain in right leg and back. call light within reach and instructed pt to call RN for help
[2019-08-08] MEDS: ONDANSETRON HCL INJ 2MG/ML 2ML 2 MG/ML VIAL IV PRN ×3 (07:40→20:00)
--- NOTE | 2019-08-08 08:30 | NUR ---
Dr. Jalloh at the bedside and changed the suprapubic catheter; 22 mongolian, irrigated with sodium chloride and new collection bag attached.
[2019-08-08] MEDS: NIFEDIPINE CR 30 MG TAB PO SCH ×2 (09:00→17:21)
[2019-08-08] MEDS: SODIUM BICARBONATE 650 MG TAB PO SCH ×3 (09:05→20:54)
[2019-08-08] MEDS: MAGNESIUM OXIDE 400 MG TAB PO SCH ×3 (09:05→20:54)
[2019-08-08] MEDS: INSULIN REGULAR, HUMAN 100 UNIT/1 ML 3ML VIAL SQ SCH ×4 (09:05→21:00)
[2019-08-08] MEDS: FAMOTIDINE 20 MG/2 ML VIAL IV SCH ×2 (09:09→17:21)
[2019-08-08] MEDS: GABAPENTIN 300 MG CAP PO SCH ×3 (10:00→20:54)
--- NOTE | 2019-08-08 12:58 | Progress Note ---
DATE: SUBJECTIVE: The patient is seen and evaluated. Available labs and notes reviewed. Discussed with Dr. Blum. Please refer to chart for more information. REVIEW OF SYSTEMS: Feels better. No nausea, vomiting, chest pain, shortness of breath, headache, rash, dysuria. The patient still had a low-grade temperature last night he says and very slight like tiny chills, but he states that he is doing much better overall. PHYSICAL EXAMINATION: VITAL SIGNS: Temperature is 99.7 with a maximum temperature of 100.3 last night around midnight, pulse 96, respirations 16, blood pressure 114/80. GENERAL: Alert and oriented, in no acute distress. CV: S1, S2. CHEST: Equal expansion. Clear to auscultation. No acute distress. ABDOMEN: Soft, nontender. No distention with peritoneal dialysis line. EXTREMITIES: Moves all. No significant edema. MEDICATIONS: Reviewed. As far as Infectious Disease point of view, the patient is on Diflucan and Merrem. LABORATORY STUDIES: White count of 4.79, hemoglobin 9.8, platelet 143, improved from 98. Sodium 137, potassium 3.7, creatinine 5.87. The patient gets peritoneal dialysis. SEROLOGY: Coronavirus PCR 08/04/2019, not reactive. MICROBIOLOGY: Blood culture negative. Urine culture, Enterococcus faecalis and yeast. Enterococcus is not VRE. Recheck urine cultures pending. RADIOLOGY STUDIES: No new radiology studies available. ASSESSMENT AND PLAN: 1. Urinary tract infection. 2. Fever. 3. Chronic renal failure, on peritoneal dialysis. 4. The patient remains with the left upper chest central line. Plan is to have it removed by Interventional Radiology today. We will follow with that. Further management of this patient is based on daily findings on laboratory and physical examination, overall feels better. Dictated by Lonny Lomas PA-C (Al) Ciro Blum MD /MODL /[id number]
[2019-08-08] MEDS: FLUCONAZOLE 200 MG/100 ML 100 ML IV SCH (20:54)
[2019-08-08] MEDS: MEROPENEM 500MG/ NS 50ML 50 ML IV SCH (21:30)
[2019-08-09] VITALS (8 sets, daily range): BP systolic 101–125; BP diastolic 70–86
[2019-08-09] MEDS: ONDANSETRON HCL INJ 2MG/ML 2ML 2 MG/ML VIAL IV PRN ×4 (00:10→21:40)
[2019-08-09] MEDS: MORPHINE SULFATE INJ 4 MG/ML INJ 1ML IV PRN ×5 (00:10→21:40)
[2019-08-09] MEDS: METOCLOPRAMIDE HCL 10 MG/2ML VIAL IV SCH ×4 (04:00→21:47)
[2019-08-09 06:51] LABS: ALBUMIN 1.7 g/dL (3.5-5.0); ANION GAP 15.1 mmol/L (8-16); CALCIUM 7.4 mg/dL (8.4-10.2); CREATININE, SERUM 6.05 mg/dL (0.72-1.25); PHOSPHORUS 5.2 MG/DL (2.3-4.7); POTASSIUM 4.1 mmol/L (3.5-5.1)
[2019-08-09] MEDS: INSULIN REGULAR, HUMAN 100 UNIT/1 ML 3ML VIAL SQ SCH ×4 (07:30→20:56)
[2019-08-09] MEDS: FAMOTIDINE 20 MG/2 ML VIAL IV SCH ×2 (08:14→17:38)
[2019-08-09] MEDS: SODIUM BICARBONATE 650 MG TAB PO SCH ×3 (08:14→20:56)
[2019-08-09] MEDS: MAGNESIUM OXIDE 400 MG TAB PO SCH ×3 (08:14→20:56)
[2019-08-09] MEDS: GABAPENTIN 300 MG CAP PO SCH ×3 (08:14→20:56)
[2019-08-09] MEDS: NIFEDIPINE CR 30 MG TAB PO SCH ×2 (08:14→17:00)
--- NOTE | 2019-08-09 11:49 | Progress Note ---
DATE: SUBJECTIVE: The patient is seen and evaluated, discussed with Dr. Blum. Discussed with the patient. Discussed with the nurse. REVIEW OF SYSTEMS: Fever, resolved. No nausea, vomiting, fever, chills, chest pain, shortness of breath, headache, rash, dysuria, or chills. LABORATORY STUDIES: No new CBC available. His sodium was 136, potassium 4.1, and creatinine of 6.05 today. The patient is on dialysis. MICROBIOLOGY: Blood culture negative 08/04/2019. Urine culture; Enterococcus faecalis and yeast on 08/04/2019. Recheck urine culture 08/07 is in progress. RADIOLOGY STUDIES: Status post removal of the tunneled cath. PHYSICAL EXAMINATION: VITAL SIGNS: Temperature 99.9 max since the line has been removed, pulse 93, respirations 18, and blood pressure 108/75. GENERAL: Alert and oriented, in no acute distress. CV: S1-S2. CHEST: Equal expansion. Clear to auscultation. ABDOMEN: Soft, nontender. No distention. HEENT: Moist. No pallor. No JVD. EXTREMITIES: Moves all. No significant edema. ASSESSMENT AND PLAN: 1. Fever-resolved since yesterday when the tunneled catheter was removed. Blood culture was negative. Urine culture as mentioned above. The patient is on Merrem and Diflucan. Continue with the antibiotic at this point and monitor. 2. Chronic renal failure-the patient is on peritoneal dialysis. 3. Debility-PT/OT. 4. Continue to monitor the patient clinically, follow with the labs. The plan is to stop the antibiotics, after today's dose completed. Please refer to chart for more information. Dictated by Lonny Lomas PA-C (Al) Ciro Blum MD /MODL /[id number]
--- NOTE | 2019-08-09 14:13 | Diagnostic Imaging Report ---
EXAMINATION: KNEE RIGHT THREE VIEWS INDICATION: Knee pain COMPARISON: None FINDINGS: The patient is status post right total knee replacement. Extensive posttraumatic changes of the right knee related to old healed fractures. Lucency surrounding the stem of the femoral component of the prosthesis. In the absence of prior radiographs for comparison, it is difficult to ascertain whether this represents a component of hardware loosening. No acute fracture. Suprapatellar joint effusion is present. IMPRESSION: Posterior medical and postoperative findings of the right knee. No acute displaced fracture. Lucency surrounding the stem of the femoral component of the prosthesis. In the absence of prior radiographs for comparison, it is difficult to ascertain whether this represents a component of hardware loosening. Suprapatellar joint effusion. Signed by: Imtiaz Manzo MD on 08/09/2019 2:09 PM
--- NOTE | 2019-08-09 16:32 | Diagnostic Imaging Report ---
PROCEDURE: Tunneled central venous catheter removal Procedural Personnel Attending physician(s): Raj Fellow physician(s): None Resident physician(s): None Advanced practice provider(s): None Pre-procedure diagnosis: Infection Post-procedure diagnosis: Same Indication: Catheter no longer needed Additional clinical history: None Complications: No immediate complications. IMPRESSION: Removal of left-sided tunneled central venous catheter. Plan: Please re-consult interventional radiology if new catheter placement is desired. PROCEDURE SUMMARY: - Tunneled central venous catheter removal - Additional procedure(s): None PROCEDURE DETAILS: Pre-procedure Consent: Informed consent for the procedure including risks, benefits and alternatives was obtained and time-out was performed prior to the procedure. Preparation: The site was prepared and draped using maximal sterile barrier technique including cutaneous antisepsis. Anesthesia/sedation Level of anesthesia/sedation: No sedation Anesthesia/sedation administered by: Not applicable Catheter removal Local anesthesia was administered. The catheter was removed with a combination of traction and blunt dissection. Closure Hemostasis was achieved with manual compression. Sterile dressing(s) applied. Contrast Contrast agent: None None Radiation Dose Fluoroscopy time (minutes): 0.0 Reference air kerma (mGy): 0.1 Additional Details Additional description of procedure: None Equipment details: None Specimens removed: Tunneled central venous catheter. Estimated blood loss (mL): Less than 10 Standardized report: [id number] Attestation Signer name: Imtiaz Manzo MD I attest that I was present for the entire procedure. I reviewed the stored images and agree with the report as written. Signed by: Imtiaz Manzo MD on 08/09/2019 4:29 PM
--- NOTE | 2019-08-09 19:05 | NUR ---
Completed bedside nursing report with morning nurse. Pt alert and orient, lying in bed HOB 45 degrees. c/o gen. pain, previously medicated. Call light within reach. Bed low and locked.
[2019-08-09] MEDS: FLUCONAZOLE 200 MG/100 ML 100 ML IV SCH (20:56)
[2019-08-09] MEDS: MEROPENEM 500MG/ NS 50ML 50 ML IV SCH (21:30)
[2019-08-10] MEDS: ONDANSETRON HCL INJ 2MG/ML 2ML 2 MG/ML VIAL IV PRN ×2 (02:20→08:39)
[2019-08-10] MEDS: MORPHINE SULFATE INJ 4 MG/ML INJ 1ML IV PRN ×2 (02:20→08:39)
[2019-08-10] MEDS: METOCLOPRAMIDE HCL 10 MG/2ML VIAL IV SCH ×2 (04:00→08:39)
[2019-08-10 05:05] VITALS: BP 124/83
[2019-08-10] MEDS: INSULIN REGULAR, HUMAN 100 UNIT/1 ML 3ML VIAL SQ SCH ×2 (07:30→11:25)
[2019-08-10 07:40] VITALS: BP 121/82
[2019-08-10 08:08] VITALS: BP 121/82
[2019-08-10] MEDS: NIFEDIPINE CR 30 MG TAB PO SCH (08:39)
[2019-08-10] MEDS: FAMOTIDINE 20 MG/2 ML VIAL IV SCH (08:39)
[2019-08-10] MEDS: SODIUM BICARBONATE 650 MG TAB PO SCH (08:39)
[2019-08-10] MEDS: GABAPENTIN 300 MG CAP PO SCH (08:39)
[2019-08-10] MEDS: MAGNESIUM OXIDE 400 MG TAB PO SCH (08:39)
--- NOTE | 2019-08-10 09:00 | NUR ---
Provided patient with simple bladder irrigation as ordered
[2019-08-10] MEDS ORDERED: DIFLUCAN100 MG PO (09:33)
[2019-08-10] MEDS ORDERED: AMOXICILLIN250 MG PO (09:34)
--- NOTE | 2019-08-10 10:00 | NUR ---
Per "patient cleared to discharge from nephrology stand point"
--- NOTE | 2019-08-10 10:04 | Discharge Summary ---
CONSULTANTS: 1. Dr Lew Karimi. 2. Dr. Castro Jalloh. 3. Dr. Ciro Blum. FINAL DIAGNOSES: 1. Complicated urinary tract infection with Enterococcus faecalis and Latonya albicans secondary to chronic indwelling Barcenas catheter with suprapubic catheter. 2. Diabetes type 1 on insulin treatment control. 3. End-stage renal disease, on peritoneal dialysis. 4. Extensive chronic medical problem. SUMMARY: This is a 39-year-old male, came into the hospital with fever, having abdominal pain. The patient found to have urinary tract infection. He has Latonya albicans and also Enterococcus faecalis. He has his suprapubic catheter exchanged. The patient also receiving peritoneal dialysis. The patient is doing much better. He does have some right knee pain, but which is chronic. He has previous surgical intervention. The patient is otherwise stable. No chest pain. No shortness of breath. He had no fever. He is stable for discharge home. He will need to follow up as an outpatient for continued monitoring. Again, his suprapubic catheter has been exchanged. Diflucan 100 mg daily for 14 days and amoxicillin 5 mg 3 times a day for 10 days. The patient is otherwise stable, discharged home today and I will continue to follow the patient. We will instruct to follow up with me on Thursday or Thursday next week. MD SADA Haywood/NOREEN /[id number]
[2019-08-10] MEDS ORDERED: ONDANSETRON HCL 4 MG ORAL DISINTEGRATING TAB PO PRN (10:30)
[2019-08-10 11:13] VITALS: BP 115/83
--- NOTE | 2019-08-10 11:54 | Progress Note ---
DATE: SUBJECTIVE: The patient is seen and evaluated. Available labs and notes reviewed. Discussed with the nurse. No new complaints. REVIEW OF SYSTEMS: No nausea, vomiting, fever, chills, chest pain, shortness of breath, headache, rash, or dysuria. PHYSICAL EXAMINATION: VITAL SIGNS: Temperature 98.9, pulse 94, respiration 20, and blood pressure 115/83. GENERAL: Alert and oriented. No acute distress. CV: S1 and S2. CHEST: Equal expansion. Clear to auscultation. No acute distress. ABDOMEN: Soft and nontender. No distention. HEENT: Moist. No pallor. No JVD. MEDICATIONS: From ID point of view, the patient is on meropenem and Diflucan. LABORATORY STUDIES: No new CBC and no new BMP. MICROBIOLOGY: No new microbiology studies are available. ASSESSMENT AND PLAN: 1. Fever. 2. Urinary tract infection. 3. Renal failure, on peritoneal dialysis. 4. Debility. 5. The patient is on Merrem and Diflucan, discharge is in progress, status post removal of the tunneled central line, blood culture was negative. Continue to monitor the patient clinically and follow. The patient is in progress. Discussed with the patient to come and see us in couple weeks after discharge. Please refer to chart for more information. Dictated by Lonny Lomas PA-C (Al) Ciro Blum MD /MODL /[id number]
--- NOTE | 2019-08-10 12:40 | NUR ---
Right AC IV discontinued. No signs of infiltration noted. Placed 2x2 gauze and coban. Taken via wheelcair by unit control clerk to personal car. AAOX4 to time, person, place, situation. Respirations even and unlabored. Denies pain. Suprapubic catheter intact. Provided patient with leg bag and beside bag as ordered. Discharge instructions, rx, and all personal belongings taken with patient.
== END 2019-08-10 12:40 | disposition home or self-care (01) | DRG 698 ==
LOC: ER 19:47 → ERHOLD 23:31 → MED/SURG3 08-05 12:47
PROVIDERS: ADMIT Internal Medicine; ATTEND Internal Medicine
PROC: 0T2BX0Z Change Drainage Device in Bladder, External Approach (ICD-10-PCS; 2019-08-04)
PROC: 3E1M39Z Irrigation of Peritoneal Cavity using Dialysate, Percutaneous Approach (ICD-10-PCS; principal; 2019-08-05)
PROC: 3E1M39Z Irrigation of Peritoneal Cavity using Dialysate, Percutaneous Approach (ICD-10-PCS; 2019-08-06)
PROC: 3E1M39Z Irrigation of Peritoneal Cavity using Dialysate, Percutaneous Approach (ICD-10-PCS; 2019-08-07)
PROC: 3E1M39Z Irrigation of Peritoneal Cavity using Dialysate, Percutaneous Approach (ICD-10-PCS; 2019-08-08)
PROC: 0JPT3XZ Removal of Tunneled Vascular Access Device from Trunk Subcutaneous Tissue and Fascia, Percutaneous Approach (ICD-10-PCS; 2019-08-08)
PROC: 02PYX3Z Removal of Infusion Device from Great Vessel, External Approach (ICD-10-PCS; 2019-08-08)
PROC: 3E1M39Z Irrigation of Peritoneal Cavity using Dialysate, Percutaneous Approach (ICD-10-PCS; 2019-08-09)
DX: T83.511A Infection and inflammatory reaction due to indwelling urethral catheter, initial encounter (principal); N18.6 End stage renal disease; I12.0 Hypertensive chronic kidney disease with stage 5 chronic kidney disease or end stage renal disease; B37.49 Other urogenital candidiasis; Z99.2 Dependence on renal dialysis; Z90.5 Acquired absence of kidney; N31.9 Neuromuscular dysfunction of bladder, unspecified; D63.1 Anemia in chronic kidney disease; Z87.440 Personal history of urinary (tract) infections; E83.51 Hypocalcemia; B95.2 Enterococcus as the cause of diseases classified elsewhere; N25.0 Renal osteodystrophy; E10.22 Type 1 diabetes mellitus with diabetic chronic kidney disease; E10.42 Type 1 diabetes mellitus with diabetic polyneuropathy; E10.43 Type 1 diabetes mellitus with diabetic autonomic (poly)neuropathy; K31.84 Gastroparesis; Z79.4 Long term (current) use of insulin; E10.319 Type 1 diabetes mellitus with unspecified diabetic retinopathy without macular edema; Z11.59 Encounter for screening for other viral diseases; R53.81 Other malaise
CPT/HCPCS: 36415; 36589; 71045; 74176; 74470; 80048; 80053; 81001; 82040; 82550; 82553; 82948; 83605; 83970; 84100; 84484; 85025; 85610; 85730; 87040; 87086; 87186; 87635; 93005; 99285; J1450; J2270; J2405; J2550; J2765; J3370; J7050

== ENCOUNTER 2019-12-11 23:28 | Inpatient (IN) | payer BC ==
[~2019-12-11] VITALS: Ht 180.3 cm; Wt 95.3 kg
[~2019-12-11 23:28] MED LIST changes: +AMOXICILLIN250 MG PO; +LANTUS 3ML100 UNITS/ SC; +MAG-OXIDE400 MG PO; +NIFEDIPINE ER30 MG PO
[2019-12-11] MEDS ORDERED: ONDANSETRON HCL INJ 2MG/ML 2ML 2 MG/ML VIAL IV STA (23:39)
--- OUTSIDE RECORDS SUMMARY | 2019-12-11 23:45 | XMS REPORT | Clinical Summary ---
Author Author Alejandro [facility] Organization [facility] Address Unknown Phone Unavailable Care Team Providers Care Aviation Operations Specialist Name Role Phone Donald Potts MD PCP Allergies Comments Active Allergy Reactions Severity Noted Date CT contrast. IV dye. Excessive sneezing. Dye 03/17/2016 Medications End Date Status Medication Sig Dispensed Refills Start Date Active calcium carbonate (TUMS) Chew 1 tablet 0 200 mg calcium (500 mg) 3 (three) chewable tablet times daily after meals. Active gabapentin (NEURONTIN) Take 300 mg 0 300 mg capsule by mouth 3 (three) times a day. Active sodium bicarbonate 650 mg Take 1,300 mg 0 tablet by mouth 3 (three) times a day. Active NIFEdipine XL (PROCARDIA Take 30 mg by 0 XL) 30 MG 24 hr tablet mouth 2 (two) times a day. Active magnesium oxide (MAG-OX) Take 800 mg 0 400 mg (241.3 mg by mouth 3 magnesium) tablet (three) times a day. 08/15/2019 Discontinued (Med List Clean up) cholecalciferol, vitamin Take 2,000 0 D3, (VITAMIN D3) 2,000 Units by unit capsule capsule mouth daily. 02/21/2019 Discontinued (Med List Clean up) ciprofloxacin [...] tablet 0 (PROBIOTIC ORAL) by mouth daily. 08/19/2019 Discontinued (Stop Taking at Discharge) insulin ASPART (NovoLOG) Inject 5 0 100 unit/mL injection Units under the skin 3 (three) times a day before meals. 02/21/2019 Discontinued (Med List Clean up) insulin DETEMIR (LEVEMIR) Inject 30 0 100 unit/mL (3 mL) Units under insulin pen the skin nightly. 08/15/2019 Discontinued (Med List Clean up) ergocalciferol (VITAMIN Take 50,000 0 D2) 50,000 unit capsule Units by mouth once a week. 10/18/2019 isoniazid (NYDRAZID) 300 Take 3 36 tablet 0 0 MG tablet tablets (900 0 mg total) by mouth once a week for 12 doses. 10/18/2019 rifapentine 150 mg tablet Take 6 72 each 0 tablets by 0 mouth once a week for 12 doses. 08/19/2019 Discontinued (Stop Taking at Discharge) amoxicillin (AMOXIL) 500 Take 500 mg 0 MG capsule by mouth 3 (three) times a day. 09/17/2019 insulin lispro (HumaLOG) Inject 9 10 mL 12 0 100 unit/mL injection Units under 0 the skin 3 (three) times a day before meals for 30 days. 09/17/2019 doxycycline (VIBRAMYCIN) Take 1 60 capsule 0 0 100 MG capsule capsule (100 0 mg total) by mouth 2 (two) times a day for 30 days. 09/18/2019 ciprofloxacin (CIPRO) 500 Take 1 tablet 30 tablet 0 MG tablet (500 mg 0 total) by mouth daily for 30 days. 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 Pre-transplant evaluation for kidney and pancreas tra nsplant 04/06/2019 Diabetes mellitus type 1 02/21/2019 Instability of internal right knee prosthesis 2017 Infection of right knee 03/27/2016 Encounters Care Team Description Date Type Specialty Arcelia Abrams RN Follow up with patient (Kidney alone) 12/06/2019 Telephone Transplant Linda Fox ACNP 12/05/2019 Documentation Transplant Melani Finney MA MISSED CALL 12/02/2019 Telephone Transplant Bisi Crawford RN Evaluation Status 09/15/2019 Telephone Transplant Bisi Crawford RN 09/15/2019 Documentation Transplant Julito Gaurav Kidney Follow-up (TX[place] - [employer] [place] - RENAL/PANCREAS TXP AUTH PENDING) 09/14/2019 Documentation Transplant Bisi Silva LCSW 09/14/2019 Documentation Transplant Devon Gomez MD 09/05/2019 Telephone Orthopedic Surgery Bisi Crawford RN Evaluation Status 08/22/2019 Telephone Transplant Meghna Khan MD O'Dwyer, Varinder Milligan MD Urinary tract infection associated with cystostomy catheter, subsequent encounter (Primary Dx); Acute pain of right knee; Effusion of right knee 08/14/2019 Hospital Orthopedic Surgery - Encounter 08/19/2019 Lan Johnson MD LTBI (latent tuberculosis infection) (Pr imary Dx) 08/01/2019 Telemedicine Infectious Diseases 08/01/2019 Bisi Campbell RN 07/20/2019 Abstract Transplant Bisi Crawford RN [...] (HCC) (Primary Dx) 04/06/2019 Office Visit Transplant Julito Gaurav Kidney Follow-up (TXP - [facility] - RENAL EVAL APPRVL) 03/29/2019 Documentation Transplant Bisi Crawford RN End stage renal disease (HCC) (Primary D x); Type 1 diabetes mellitus with other specified complication (HCC) 02/25/2019 Orders Only Transplant Melani Finney MA Referral - Kidney/Pancreas Txp 02/21/2019 Telephone Transplant after 12/10/2018 Surgical History Surgery Date Site/Laterality Comments JOINT REPLACEMENT Rt knee external fixator CHOLECYSTECTOMY 02/23/2015 - 02/23/2016 CYSTOSCOPY W/ URETERAL 11/24/2015 STENT PLACEMENT - 12/24/2015 ARTHROPLASTY, KNEE, TOTAL 03/27/2016 Knee/N/A Proc edure: RIGHT KNEE ANTIBIOTIC REMOCAL, RIGHT TOTAL KNEE ARTHROPLASTY; Surgeon: Silke Chowdary MD; Location: [facility] OR; ervice: Orthopedics; Laterality: N/A; Medical devices from this surgery are i n the Implants section. SUPRAPUBIC CATHETER 02/23/2017 - INSERTION 03/25/2017 CYSTOSCOPY W/ URETERAL 12/24/2016 STENT REMOVAL - 01/22/2017 REVISION, ARTHROPLASTY, 04/16/2017 Knee/Right Proced ure: RIGHT TOTAL KNEE ARTHROPLASTY REVISION; KNEE COMPLEX WOUND CLOSURE, EXCI JAMAL DISTAL FEMUR; Surgeon: Silke Chowdary MD; Location: [facility] OR; Service: Orthopedics; Laterality: Right; Medical devices from this surgery are i n the Implants section. CATARACT EXTRACTION Right CYSTOSCOPY, WITH URETERAL 02/15/[address] [facility] STENT REPLACEMENT NEPHRECTOMY, RADICAL 06/13/2019 Right secondary to pyelonephritis recently with chronic hydronephrosis with stent Medical History Medical History Date Comments Hypertension Depression Anxiety Chronic UTI Stent placement at Kb 1 will have replaced 03-19-2016 Anemia Broken leg Accident at work , had exer nal fixator, infection now with spacer Anesthesia Pt had tachycardia after on e anesthesia and had to be put back to sleep,NFHAP. No chest pain, no SOB, exercises with PT at rehab facilit y he is at, wears glasses and all teeth secure. Advanced directives, Copy given, pt also a kika ortiz counseling/discussion austyn notified and will call patient Patient is [facility] Kika Tierney noti fied and will call patient. Suprapubic catheter (HCC) 03/24/2017 in placed. m id abdomen Neurogenic bladder Wears glasses Does not exercise due to knee problem. 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 Family History Medical History Relation Name Comments Hypertension Maternal Grandmother Kidney disease Maternal Grandmother Diabetes Mother Relation Name Status Comments Maternal Grandmother Mother Social History Date Tobacco Use Types Packs/Day Years Used Never Smoker Smokeless Tobacco: Never Used Drinks/Week oz/Week Comments Alcohol Use No Sex Assigned at Date Recorded Not on file Last Filed Vital Signs Reading Time Taken Comments Vital Sign 137/84 08/19/2019 10:13 AM CDT Blood Pressure 61 08/19/2019 10:13 AM CDT Pulse 36.5 C (97.7 F) 08/19/2019 10:13 AM CDT Temperature 16 08/19/2019 10:13 AM CDT Respiratory Rate 98% 08/19/2019 10:13 AM CDT Oxygen Saturation - - Inhaled Oxygen Concentration 95.3 kg (210 lb) 08/14/2019 9:10 PM CDT Weight 180.3 cm (5' 11") 08/17/2019 12:23 PM CDT Height 29.29 08/14/2019 9:10 PM CDT Body Mass Index Plan of Treatment Health Maintenance Due Date Last Done Comments DIABETIC RETINAL EYE EXAM 1980 DIABETIC FOOT EXAM 1990 INFLUENZA VACCINE 09/24/2019 Implants Device Identifier Shelf Expiration Date Model / Serial / L ot Implanted Type Area Manufactur er 11/22/2025 [id number] / / [id number] Screw Bone Canc Dome 6.5x25mm Ltxf Hip Joint Right: Knee DEPUY [place] - [id number] Implants ORTHO Implanted: Qty: 1 on 03/27/2016 by Silke Chowdary MD at [facility] 01/22/2026 [id number] / / [id number] Screw Bone Canc Dome 6.5x25mm Ltxf Hip Joint Right: Knee DEPUY [place] - [id number] Implants ORTHO Implanted: Qty: 1 on 03/27/2016 by Silke Chowdary MD at [facility] 10/23/2026 [id number] / / [id number] [place] Stem [id number] Fluted - IPM Right: Knee DEPUY [id number] IMPLANT ORTHOPAEDI Implanted: Qty: 1 on 04/16/2017 by [employer] Silke Chowdary MD at [facility] 12/23/2026 [id number] / / [id number] [place] Fem Slv Ful Por 40mm - IPM Right: Knee DEPUY [id number] IMPLANT ORTHOPAEDI Implanted: Qty: 1 on 04/16/2017 by [employer] Silke Chowdary MD at [facility] 11/22/2025 [id number] / / [id number] [facility] Xs/S/ 10mm - IPM Right: Knee DEPUY [id number] IMPLANT ORTHOPAEDI Implanted: Qty: 1 on 04/16/2017 by [employer] Silke Chowdary MD at [facility] 11/22/2024 [id number] / / [id number] Srom [facility] Dist Aug Xs/S/ 10mm - IPM Right: Knee DEPUY [id number] IMPLANT ORTHOPAEDI Implanted: Qty: 1 on 04/16/2017 by [employer] Silke Chowdary MD at [facility] 10/23/2021 [id number] / / [id number] [facility]Pin Med Rt 71x66 - IPM Right: Knee DEPUY [id number] IMPLANT ORTHOPAEDI Implanted: Qty: 1 on 04/16/2017 by [employer] Silke Chowdary MD at [facility] 10/24/2019 [id number] / / [id number] Lps Univ Tib Hin Ins Med 31mm - IPM Right: Knee DEPUY [id number] IMPLANT ORTHOPAEDI Implanted: Qty: 1 on 04/16/2017 by [employer] Silke Chowdary MD at [facility] 01/22/2026 [id number] / / [id number] Augment Fml P.F.C Sigma Distl Rt Sz Knee Joint Right: Kne e DEPUY 5 4mm - [id number] Implants ORTHO Implanted: Qty: 1 on 03/27/2016 by Silke Chowdary MD at [facility] 01/22/2026 [id number] / / [id number] Stem Tib Cementd [id number] P.F.C Knee Joint Right: Knee DEPUY Sigma - [id number] Implants ORTHO Implanted: Qty: 1 on 03/27/2016 by Silke Chowdary MD at [facility] 10/22/2020 [id number] / / [id number] Augment Fml P.F.C Sigma Distl Rt Sz Knee Joint Right: Kne e DEPUY 5 8mm - [id number] Implants ORTHO Implanted: Qty: 1 on 03/27/2016 by Silke Chowdary MD at [facility] 09/22/2025 [id number] / / [id number] Stem Tib Cementd [id number] Knee Joint Right: Knee DEPUY P.F.C.Sigma - [id number] Implants ORTHO Implanted: Qty: 1 on 03/27/2016 by Silke Chowdary MD at [facility] 12/23/2020 [id number] / / [id number] Patella Prosths Oval / Dome 3-Post Knee Joint Right: Knee DEPUY 38mm Std Uhmwpe - [id number] Implants ORTHO Implanted: Qty: 1 on 03/27/2016 by Silke Chowdary MD at [facility] 05/23/2020 [id number] / / [id number] Insert Tib Stblzd Rp Sz 5 25mm Knee Joint Right: Knee DEPUY P.F.C Sigma - [id number] Implants ORTHO Implanted: Qty: 1 on 03/27/2016 by Silke Chowdary MD at [facility] 02/22/2026 [id number] / / [id number] Tray Rev Mbt 5x53.1x80.6x61.8mm - Knee Joint Right: Knee DEPUY [id number] Implants ORTHO Implanted: Qty: 1 on 03/27/2016 by Silke Chowdary MD at [facility] 09/22/2025 [id number] / / [id number] Component Fml Rt N-Por Tc3 Sz 5 Knee Joint Right: Knee DEPUY [id number] P.F.C Sigma - [id number] Implants ORTHO Implanted: Qty: 1 on 03/27/2016 by Silke Chowdary MD at [facility] 01/22/2026 [id number] / / [id number] Adapter Fml P.F.C Sigma 5deg - Knee Joint Right: Knee DEPUY [id number] Implants ORTHO-KNEE Implanted: Qty: 1 on 03/27/2016 by Silke Gutierres MD at [facility] 11/22/2025 [id number] / / [id number] Adapter Fml P.F.C Sigma Ofst [place] Knee Joint Right: Knee DEPUY +2/-2mm - [id number] Implants ORTHO-KNEE Implanted: Qty: 1 on 03/27/2016 by Silke Gutierres MD at [facility] 01/22/2017 [id number] / / [id number] Cement Bone Hiviscocty 40gr Surgical Right: Knee DE PUY Smartset - [id number] Bone ORTHO Implanted: Qty: 2 on 03/27/2016 by Silke Monge MD at [facility] 12/23/2016 [id number] / / [id number] Cement Bone Hiviscocty 40gr Surgical Right: Knee DE PUY Smartset - [id number] Bone ORTHO Implanted: Qty: 1 on 03/27/2016 by Silke Monge MD at [facility] 10/23/2018 [id number] / / [id number] Cement Bone Hiviscocty 40gr Surgical Right: Knee DE PUY Smartset - [id number] Bone ORTHO Implanted: 04/16/2017 at [facility] (Quantity not on file) 12/24/2020 [id number] / / [id number] Cement Bone Prep Univl Insrtr Sculp Surgical Right: Gilbert handley SANDOR Fml [place] Suct Sm - [id number] Implants; IN STRUMENT Implanted: Qty: 1 on 03/27/2016 by [employer]; S Silke Chowdary MD at [facility] Extenders; Surgical Wires [id number] / / Immobilizer Knee Tripnl Dlx W/ Patl Surgical N/A: N/A DEROYAL Strp Univl Canvas 24in - [id number] Implants; IN DUSTRIES Implanted: 04/16/[address] [facility] Exp[employer]; HOSPITAL (Quantity not on file) Extenders; Surgical Wires Procedures Comments Procedure Name Priority Date/Time Associated Diag nosis POC GLUCOSE Routine 08/19/2019 12:21 PM CDT POC GLUCOSE Routine 08/19/2019 7:18 AM CDT URINE CULTURE Routine 08/18/2019 10:47 PM CDT POC GLUCOSE Routine 08/18/2019 9:27 PM CDT URINALYSIS SCREEN AND Routine 08/18/2019 MICROSCOPY, WITH REFLEX 9:05 PM CDT TO CULTURE POC GLUCOSE Routine 08/18/2019 7:02 PM CDT POC GLUCOSE Routine 08/18/2019 5:56 PM CDT POC GLUCOSE Routine 08/18/2019 3:48 PM CDT POC GLUCOSE Routine 08/18/2019 3:27 PM CDT POC GLUCOSE Routine 08/18/2019 12:41 PM CDT POC GLUCOSE Routine 08/18/2019 8:20 AM CDT POC GLUCOSE Routine 08/17/2019 9:13 PM CDT POC GLUCOSE Routine 08/17/2019 5:44 PM CDT POC GLUCOSE Routine 08/17/2019 12:23 PM CDT POC GLUCOSE Routine 08/17/2019 7:51 AM CDT POC GLUCOSE Routine 08/16/2019 10:54 PM CDT POC GLUCOSE Routine 08/16/2019 4:53 PM CDT POC GLUCOSE Routine 08/16/2019 11:38 AM CDT POC GLUCOSE Routine 08/16/2019 7:47 AM CDT HEPATITIS B SURFACE Routine 08/16/2019 ANTIGEN 4:45 AM CDT COVID-19 QUALITATIVE PCR Routine 08/16/2019 12:30 AM CDT POC GLUCOSE Routine 08/15/2019 9:02 PM CDT POC GLUCOSE Routine 08/15/2019 5:51 PM CDT POC GLUCOSE Routine 08/15/2019 11:48 AM CDT POC GLUCOSE Routine 08/15/2019 7:49 AM CDT ESTIMATED GFR Routine 08/15/2019 4:42 AM CDT HEMOGLOBIN A1C Routine 08/15/2019 4:42 AM CDT BASIC METABOLIC PANEL Routine 08/15/2019 4:42 AM CDT HC COMPLETE BLD COUNT Routine 08/15/2019 W/AUTO DIFF 4:42 AM CDT ECG 12-LEAD Routine 08/15/2019 1:09 AM CDT POC GLUCOSE Routine 08/14/2019 11:13 PM CDT CRYSTAL ANALYSIS Routine 08/14/2019 6:30 PM CDT CELL COUNT AND Routine 08/14/2019 DIFFERENTIAL, BODY FLUID 6:30 PM CDT AFB STAIN Routine 08/14/2019 6:28 PM CDT FUNGUS SMEAR Routine 08/14/2019 6:28 PM CDT AFB CULTURE Routine 08/14/2019 6:28 PM CDT FUNGUS CULTURE Routine 08/14/2019 6:28 PM CDT URINE CULTURE Routine 08/14/2019 6:28 PM CDT ANAEROBIC CULTURE Routine 08/14/2019 6:28 PM CDT GRAM STAIN Routine 08/14/2019 6:03 PM CDT AEROBIC CULTURE Routine 08/14/2019 6:03 PM CDT URINALYSIS SCREEN AND Routine 08/14/2019 MICROSCOPY, WITH REFLEX 5:45 PM CDT TO CULTURE BLOOD CULTURE, AEROBIC & Routine 08/14/2019 ANAEROBIC 4:45 PM CDT ESTIMATED GFR STAT 08/14/2019 4:15 PM CDT COMPREHENSIVE METABOLIC STAT 08/14/2019 PANEL 4:15 PM CDT C-REACTIVE PROTEIN STAT 08/14/2019 4:15 PM CDT SEDIMENTATION RATE STAT 08/14/2019 4:15 PM CDT PARTIAL THROMBOPLASTIN STAT 08/14/2019 TIME (PTT) 4:15 PM CDT PROTHROMBIN TIME WITH INR STAT 08/14/2019 4:15 PM CDT HC COMPLETE BLD COUNT STAT 08/14/2019 W/AUTO DIFF 4:15 PM CDT BLOOD CULTURE, AEROBIC & Routine 08/14/2019 ANAEROBIC 4:15 PM CDT XR KNEE 4+ VW RIGHT STAT 08/14/2019 2:34 PM CDT CARDIOLIPIN ANTIBODIES Routine 08/01/2019 End sta ge [...] (HCC) URINE CULTURE Routine 04/06/2019 8:57 AM ENGAGEMENT ENGINEER TREPONEMA PALLIDUM AB Routine 04/06/2019 8:00 AM ENGAGEMENT ENGINEER RPR Routine 04/06/2019 8:00 AM ENGAGEMENT ENGINEER HEPATITIS A ANTIBODY IGM Routine 04/06/2019 8:00 AM ENGAGEMENT ENGINEER ESTIMATED GFR Routine 04/06/2019 8:00 AM ENGAGEMENT ENGINEER DRUG YUEN 9, SER/LILIAN, SCRN Routine 04/06/2019 End stage renal disease W/RFLX TO CONF 8:00 AM ENGAGEMENT ENGINEER (HCC) Type 1 diabetes mellitus with other specified complication (HCC) ABO/RH Routine 04/06/2019 End stage renal disease 8:00 AM ENGAGEMENT ENGINEER (HCC) Type 1 diabetes mellitus with other specified complication (HCC) NICOTINE AND COTININE, Routine 04/06/2019 End sta ge renal disease SERUM 8:00 AM ENGAGEMENT ENGINEER (HCC) Type 1 diabetes mellitus with other specified complication (HCC) IA-2 ANTIBODY Routine 04/06/2019 End stage renal disease 8:00 AM ENGAGEMENT ENGINEER (HCC) Type 1 diabetes mellitus with other specified complication (HCC) ISLET CELL AB, IGG Routine 04/06/2019 End stage r enal disease 8:00 AM ENGAGEMENT ENGINEER (HCC) Type 1 diabetes mellitus with other specified complication (HCC) GLUTAMIC ACID Routine 04/06/2019 End stage renal disease DECARBOXYLASE AB 8:00 AM ENGAGEMENT ENGINEER (HCC) Type 1 diabetes mellitus with other specified complication (HCC) HEMOGLOBIN A1C Routine 04/06/2019 End stage renal disease 8:00 AM ENGAGEMENT ENGINEER (HCC) Type 1 diabetes mellitus with other specified complication (HCC) C-PEPTIDE Routine 04/06/2019 End stage renal disease 8:00 AM ENGAGEMENT ENGINEER (HCC) Type 1 diabetes mellitus with other specified complication (HCC) PARTIAL THROMBOPLASTIN Routine 04/06/2019 End sta ge renal disease TIME (PTT) 8:00 AM ENGAGEMENT ENGINEER (HCC) Type 1 diabetes mellitus with other specified complication (HCC) PROTHROMBIN TIME WITH INR Routine 04/06/2019 End stage renal disease 8:00 AM ENGAGEMENT ENGINEER (HCC) Type 1 diabetes mellitus with other specified complication (HCC) HC COMPLETE BLD COUNT Routine 04/06/2019 End stag e renal disease W/AUTO DIFF 8:00 AM ENGAGEMENT ENGINEER (HCC) Type 1 diabetes mellitus with other specified complication (HCC) SYPHILIS TOTAL ANTIBODY Routine 04/06/[address] age renal disease 8:00 AM ENGAGEMENT ENGINEER (HCC) Type 1 diabetes mellitus with other specified complication (HCC) HEPATITIS C ANTIBODY Routine 04/06/2019 End stage renal disease 8:00 AM ENGAGEMENT ENGINEER (HCC) Type 1 diabetes mellitus with other specified complication (HCC) HEPATITIS B SURFACE Routine 04/06/2019 End stage renal disease ANTIGEN 8:00 AM ENGAGEMENT ENGINEER (HCC) Type 1 diabetes mellitus with other specified complication (HCC) HEPATITIS B SURFACE AB, Routine 04/06/[address] age renal disease QUANTITATIVE 8:00 AM ENGAGEMENT ENGINEER (HCC) Type 1 diabetes mellitus with other specified complication (HCC) HEPATITIS B CORE ANTIBODY Routine 04/06/2019 End stage renal disease TOTAL 8:00 AM ENGAGEMENT ENGINEER (HCC) Type 1 diabetes mellitus with other specified complication (HCC) HEPATITIS A ANTIBODY Routine 04/06/2019 End stage renal disease TOTAL 8:00 AM ENGAGEMENT ENGINEER (HCC) Type 1 diabetes mellitus with other specified complication (HCC) HIV AG/AB COMBINATION Routine 04/06/2019 End stag e renal disease 8:00 AM ENGAGEMENT ENGINEER (HCC) Type 1 diabetes mellitus with other specified complication (HCC) URINALYSIS SCREEN AND Routine 04/06/2019 End stag e renal disease MICROSCOPY, WITH REFLEX 8:00 AM ENGAGEMENT ENGINEER (HCC) TO CULTURE Type 1 diabetes mellitus with other specified complication (HCC) COMPREHENSIVE METABOLIC Routine 04/06/[address] age renal disease PANEL 8:00 AM ENGAGEMENT ENGINEER (HCC) Type 1 diabetes mellitus with other specified complication (HCC) after 12/10/2018 Results * POC glucose (08/19/2019 12:21 PM CDT) Only the most recent of 22 results within the time period is included. POC glucose 145 (H) 65 - 99 mg/dL [place] Comment: [facility] Watch Inspector Final Movement Name: [facility] Device ID: [id number] Chartable: [facility] Notified RN Specimen Blood Performing Organization Address City/State/[facility] Code P [place] [address] [facility] DEPART[facility] OF [address] [place] [id number] PATHOLOGY AND GENOMIC MEDICINE [place] B[facility]TISM [address] [place] [address] * Urine culture (08/18/2019 10:47 PM CDT) Only the most recent of 3 results within the time period is included. Urine culture No growth after 24 hours [place] isolate Comment: [facility] Specimen Information HOSPITAL Specimen Source: Urine Specimen Site: Catheterized Specimen Urine - Catheterized Performing Organization Address City/State/[facility] Code [place] [address] [facility] [place] [address] PATHOLOGY AND GENOMIC MEDICINE [address] * Urinalysis screen and microscopy, with reflex to culture (08/18/2019 9:05 PM CDT) Only the most recent of 3 results within the time period is included. Specimen site Catheterized [facility] Color, UA Straw [facility] Appearance, UA Hazy [facility] Specific 1.012 1.001 - 1.035 [place] gravity, [facility] pH, UA 5.0 5.0 - 8.5 [facility] Protein, UA 1+ (A) Negative [facility] Glucose, UA 2+ (A) Negative [facility] Ketones, UA Negative Negative [facility] Bilirubin, UA Negative Negative [facility] Blood, UA Moderate (A) Negative [facility] Nitrite, UA Negative Negative [facility] Urobilinogen, <2.0 <2.0 [facility] Leukocyte Small (A) Negative [place] [facility] WBC, UA 25 (H) 0 - 1 /HPF [facility] RBC, UA 4 0 - 5 /HPF [facility] Bacteria, UA Few None seen [facility] Yeast, UA None seen [facility] Yeast with None seen [place] [facility] Specimen Urine Performing Organization Address [facility] P [place] Number [facility] [place] [address] PATHOLOGY AND [facility] MEDICINE [address] * Hepatitis B surface antigen (08/16/2019 4:45 AM CDT) Only the most recent of 2 results within the time period is included. Hepatitis B Non-reactive Non-reactive [facility] Ag [facility] Specimen Blood Performing Organization Address City/[facility]/ZIP Code P [place] Number [facility] [place] [address] PATHOLOGY AND GENOMIC MEDICINE [address] * COVID-19 qualitative PCR (08/16/2019 12:30 AM CDT) Interpretation Negative results do not STYLES preclude 2019-nCoV infection [facility] and should not be used as the HOSPITAL sole basis for treatment or other patient management decisions. Negative results must be combined with clinical observations, patient history, and epidemiological information. COVID-19 Not-Detected Not-Detected [place] qualitative PCR [facility] COVID-19 See link below for PDF Lab [place] qualitative PCR ReportComment: Case Number: [facility] [id number] HOSPITAL Specimen Performing Organization Address [facility]/ZIP [facility] P p[facility] Number [facility] DEPARTMENT OF [address] [place] [address] PATHOLOGY AND GENOMIC MEDICINE [address] * Estimated GFR (08/15/2019 4:42 AM CDT) Only the most recent of 4 results within the time period is included. [facility] Estimated GFR 13 (A) mL/min/1.73 m2 [place] Comment: [facility] Interpretation G1 >=90 Normal or high G2 60-89 Mildly decreased G3a 45-59 Mildly to moderately decreased G3b 30-44 Moderately to severely decreased G4 15-29 Severely decreased G5 <15 Kidney failure The eGFR was calculated using the Chronic Kidney Disease Epidemiology Collaboration (CKD-EPI) equation. Interpretation is based on recommendations of the National Kidney Foundation-Kidney Disease Outcomes Quality Initiative (NKF-KDOQI) published in 2014. Specimen Performing Organization Address City/[facility] P pascale Number [facility] [place] [address] PATHOLOGY AND GENOMIC MEDICINE [address] * CBC with platelet and differential (08/15/2019 4:42 AM CDT) Only the most recent of 3 results within the time period is included. Pathologist [facility] WBC 3.73 (L) 4.50 - 11.00 k/uL [facility] RBC 4.16 (L) 4.40 - 6.00 m/uL [facility] HGB 10.1 (L) 14.0 - 18.0 g/dL [facility] HCT 34.5 (L) 41.0 - 51.0 % [facility] MCV 82.9 82.0 - 100.0 fL [facility] MCH 24.3 (L) 27.0 - 34.0 pg [facility] MCHC 29.3 (L) 31.0 - 37.0 g/dL [facility] RDW - SD 42.0 37.0 - 55.0 fL [facility] MPV 8.5 (L) 8.8 - 13.2 fL [facility] Platelet count 190 150 - 400 k/uL [facility] Nucleated RBC 0.00 /100 WBC [facility] Neutrophils 56.8 39.0 - 69.0 % [facility] Lymphocytes 30.3 25.0 - 45.0 % [facility] Monocytes 7.5 0.0 - 10.0 % [facility] Eosinophils 3.5 0.0 - 5.0 % [facility] Basophils 0.3 0.0 - 1.0 % [facility] Immature 1.6 (H)Comment: "Immature 0.0 - 1.0 % [facility] granulocytes granulocytes" (promyelocytes, METHOD IST myelocytes, metamyelocytes) [facility] Specimen Blood Performing Organization Address City/[facility]/ZIP Code P pascale Number [facility] [place] [address] PATHOLOGY AND GENOMIC MEDICINE [address] * Hemoglobin A1c (08/15/2019 4:42 AM CDT) Only the most recent of 2 results within the time period is included. Pathologist [facility] Hemoglobin A1C 6.5 (H) 4.0 - 5.6 % [place] Comment: [facility] HbA1c cutoffs for diagnosing HOSPITAL diabetes: 4.0% - 5.6% = normal 5.7% - 6.4% = increased risk for diabetes (prediabetes)9 >=6.5% = diabetes9 Goals for glycemic control (ADA 2016) < 7.0% Target for non adults with diabetes. More or less stringent targets may be appropriate for individual patients. <7.5% Target for Children and adolescents with type 1 diabetes. Specimen Blood Performing Organization Address City/State/ZIP [place] [address] PATHOLOGY AND GENOMIC MEDICINE [address] * Basic metabolic panel (08/15/2019 4:42 AM CDT) Pathologist [facility] Sodium 139 135 - 148 mEq/L [facility] Potassium 4.4 3.5 - 5.0 mEq/L [facility] Chloride 101 98 - 112 mEq/L [facility] CO2 23 (L) 24 - 31 mEq/L [facility] Anion gap 15@ANIO 7 - 15 mEq/L [facility] BUN 36 (H) 6 - 20 mg/dL [facility] Creatinine 5.25 (H) 0.70 - 1.20 mg/dL [facility] Glucose 146 (H) 65 - 99 mg/dL [facility] Calcium 8.2 (L) 8.3 - 10.2 mg/dL [facility] Specimen Blood Performing Organization Address City/[facility] P pascale Number [facility] [place] [address] PATHOLOGY AND GENOMIC MEDICINE [address] * ECG 12 lead (08/15/2019 1:09 AM CDT) Pathologist [facility] Ventricular 99 [facility] MUSE rate Atrial rate 99 [facility] MUSE OK interval 106 [facility] QRSD interval 92 [facility] QT interval 370 [facility] QTC interval 474 [facility] P axis 1 26 [facility] M[facility] QRS axis 1 1 [facility] T wave axis 75 [facility] M[facility] EKG impression Sinus rhythm with short [facility] MUSE OK-Cannot rule out Inferior infarct , age undetermined-Abnormal ECG-In automated comparison with ECG of 08-APR-2017 16:07,-OK interval has decreased-Questionable change in QRS axis-ST no longer elevated in Inferior leads-T wave amplitude has decreased in Inferior leads-Nonspecific T wave abnormality now evident in Lateral leads-QT has lengthened- Specimen Narrative Performed At This result has an attachment that is n ot available. Performing Organization Address City/[facility]/ZIP Code P pascale Number [facility] MUSE [address] [place] [address] * Crystal analysis (08/14/2019 6:30 PM CDT) Pathologist [facility] Crystal KneeComment: Right knee joint [place] analysis aspirate [facility] specimen type HOSPITAL Monosodium None seen None seen [facility] CPPD crystals None seen None seen [facility] Specimen Fluid Performing Organization Address City/[facility]/ZIP Code P pascale Number [facility] [place] [address] PATHOLOGY AND GENOMIC MEDICINE [address] * Cell count and differential, body fluid (08/14/2019 6:30 PM CDT) Misc fluid type Synovial [facility] Color, fluid Red [facility] Appearance, Hazy [facility] RBC, fluid 36,000 /CMM [facility] Nucleated 20,934 /CMM [place] cells, [facility] Fluid See Diff [place] mononuclear [facility] Neutrophils, 89 % [facility] Lymphocytes, 2 % [facility] Macrophages, 9 % [facility] Specimen Fluid Performing Organization Address City/[facility]/ZIP Code P pascale Number [facility] [place] [address] PATHOLOGY [facility] MEDICINE [address] * Fungus smear (08/14/2019 6:28 PM CDT) Fungus smear No fungi observed. [facility] Comment: [facility] Specimen Information HOSPITAL Specimen Source: Specimen Site: Knee Specimen Knee Performing Organization Address City/[facility]/ZIP Code P pascale Number [facility] [place] [address] PATHOLOGY AND [facility] MEDICINE [address] * AFB culture (08/14/2019 6:28 PM CDT) Pathologist [facility] AFB culture No growth after 6 weeks of [place] isolate incubation. [facility] Comment: HOSPITAL Specimen Information Specimen Source: Specimen Site: Knee Specimen Knee Performing Organization Address City/[facility]/ZIP Code P pascale Number [facility] [place] [address] PATHOLOGY AND [facility] MEDICINE [address] * AFB stain (08/14/2019 6:28 PM CDT) Pathologist [facility] AFB stain No acid fast bacilli (AFB) [place] seen. [facility] Comment: HOSPITAL Specimen Information Specimen Source: Specimen Site: Knee Specimen Knee Performing Organization Address City/[facility]/ZIP Code P pascale Number [facility] [place] [address] PATHOLOGY AND [facility] MEDICINE [address] * Fungus culture (08/14/2019 6:28 PM CDT) Fungus culture No growth after 4 weeks of [place] isolate incubation. [facility] Comment: HOSPITAL Specimen Information Specimen Source: Specimen Site: Knee Specimen Knee Performing Organization Address City/State/ZIP Code P pasclae Number [facility] DEPARTMENT OF [address] [place] [address] PATHOLOGY AND GENOMIC MEDICINE [place] [facility] [address] [place] [address] HOSPITAL * Anaerobic culture (08/14/2019 6:28 PM CDT) Anaerobic No anaerobic organisms [place] culture isolate isolated. [facility] Comment: HOSPITAL Specimen Information Specimen Source: Specimen Site: Knee Specimen Synovium - Knee Performing Organization Address City/[facility]/ZIP Code P pascale Number [facility] DEPARTMENT OF [address] [place] [address] PATHOLOGY AND [facility] MEDICINE [address] * Aerobic culture (08/14/2019 6:03 PM CDT) Aerobic culture No growth after 3 days. [facility] isolate No growth after 4 days. [facility] Comment: HOSPITAL Specimen Information Specimen Source: Specimen Site: Knee Specimen Knee Performing Organization Address City/[facility]/ZIP Code P pascale Number [facility] DEPARTMENT OF [address] [place] [address] PATHOLOGY AND [facility] MEDICINE [place] [address] HOSPITAL * Gram stain (08/14/2019 6:03 PM CDT) Gram stain Many WBC's [place] isolate No organisms seen [facility] Comment: HOSPITAL Specimen Information Specimen Source: Specimen Site: Knee Specimen Knee Performing Organization Address City/[facility]/ZIP Code P pascale Number [facility] DEPARTMENT OF [address] [place] [address] PATHOLOGY AND [facility] MEDICINE [place] [facility] [address] [place] [address] HOSPITAL * Blood culture, aerobic & anaerobic (08/14/2019 4:45 PM CDT) Only the most recent of 2 results within the time period is included. Blood culture No growth after 5 days of [place] isolate incubation. [facility] Comment: HOSPITAL Specimen Information Specimen Source: Blood Specimen Site: Unspecified Specimen Blood Performing Organization Address City/[facility]/ZIP Code P pascale Number [facility] DEPARTMENT OF [address] [place] [address] PATHOLOGY AND GENOMIC MEDICINE [place] [facility] [address] * Partial thromboplastin time, activated (08/14/2019 4:15 PM CDT) Only the most recent of 2 results within the time period is included. Pathologist [facility] PTT 35.3 23.0 - 36.0 sec [place] Comment: [facility] PTT therapeutic range for HOSPITAL unfractionated heparin is 61.0-112.0 seconds which corresponds to Anti-Xa 0.3-0.7 U/ml. Specimen Blood Performing Organization Address City/State/ZIP Code P pascale Number [facility] DEPARTMENT [address] MEDICINE [address] * Sedimentation rate (08/14/2019 4:15 PM CDT) Pathologist [facility] Sedimentation 87 (H) 0 - 10 mm/hr [facility] Specimen Blood Performing Organization Address [facility] P pascale Number [facility] [place] [address] PATHOLOGY AND [facility] MEDICINE [address] * Prothrombin time with INR (08/14/2019 4:15 PM CDT) Only the most recent of 2 results within the time period is included. Pathologist [facility] Prothrombin 16.0 (H) 11.5 - 14.5 sec [facility] INR 1.3 [place] Comment: [facility] The International Normalized HOSPITAL Ratio (INR) is a therapeutic monitoring tool for patients who are stable on oral anticoagulant therapy. An INR of 2.0-3.0 is suggested for deep vein thrombosis/pulmonary embolism. Specimen Blood Performing Organization Address City/[facility] P pascale Number [facility] [place] [address] PATHOLOGY AND [facility] MEDICINE [address] * C-reactive protein (08/14/2019 4:15 PM CDT) [facility] CRP 5.40 (H) 0.00 - 0.50 mg/dL [facility] Specimen Blood Performing Organization Address City/[facility]/ZIP [facility] P pascale Number [facility] [place] [address] PATHOLOGY AND [facility] MEDICINE [address] * Comprehensive metabolic panel (08/14/2019 4:15 PM CDT) Only the most recent of 2 results within the time period is included. Sodium 138 135 - 148 mEq/L [facility] Potassium 4.2 3.5 - 5.0 mEq/L [facility] Chloride 102 98 - 112 mEq/L [facility] CO2 24 24 - 31 mEq/L [facility] Anion gap 12@ANIO 7 - 15 mEq/L [facility] BUN 35 (H) 6 - 20 mg/dL [facility] Creatinine 5.44 (H) 0.70 - 1.20 mg/dL [facility] Glucose 233 (H) 65 - 99 mg/dL [facility] Calcium 8.1 (L) 8.3 - 10.2 mg/dL [facility] Protein 7.3 6.3 - 8.3 g/dL [place] Comment: [facility] 4.6-7.0 g/dL 1 week 4.4-7.6 g/dL 7 months-1year 5.1-7.3 g/dL 1-2 years 5.6-7.5 g/dL >3 years 6.0-8.0 g/dL 18-150 6.3-8.3 g/dL Albumin 1.9 (L) 3.5 - 5.0 g/dL [facility] A/G ratio 0.4 (L) 0.7 - 3.8 [facility] Alkaline 216 (H) 40 - 129 U/L [place] phosphatase [facility] AST 14 10 - 50 U/L [facility] ALT 13 5 - 50 U/L [facility] Total bilirubin <0.2 0.0 - 1.2 mg/dL [facility] Specimen Blood Performing Organization Address City/State/ZIP Code P pascale Number 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 Although findings may be related to chronic reactive changes, complication such as chronic osteomyelitis cannot be fully e xcluded and should be correlated. 2.Distal tibial component and patellar component appear intact. No loosening noted. [facility] Procedure Note Interface, Radiology Results Incoming - 08/14/2019 2:47 PM CDT EXAMINATION: XR KNEE 4 VW RIGHT CLINICAL HISTORY: Knee pain initial exam COMPARISON: 04/16/2017 IMPRESSION: 1.Right knee revision total arthroplasty again noted with new extensive sclerotic and expansile appearance of the distal femur around the femoral metal shaft component. Although findings may be related to chronic reactive changes, complication such as chronic osteomyelitis cannot be fully excluded and should be correlated. 2.Distal tibial component and patellar c omponent appear intact. No loosening noted. [facility] Performing Organization Address City/State/ZIP Code P pascale Number [facility] [address] [place] [address] * Cardiolipin antibodies (08/01/2019 12:17 PM CDT) Only the most recent of 2 results within the time period is included. Cardiolipin IgG 5 0 - 14 GPL [place] Comment: [facility] Negative <15 GPL HOSPITAL Indeterminate 15-20 GPL Positive >20 GPL Cardiolipin IgM 7 0 - 12 MPL [place] Comment: [facility] Negative <13 MPL HOSPITAL Indeterminate 13-20 MPL Positive >20 MPL Specimen Blood Performing Organization Address [facility] P pascale Number [facility] DEPARTMENT OF [address] [place] [address] PATHOLOGY AND GENOMIC MEDICINE [place] [facility] [address] [place] [address] HOSPITAL * XR Chest 2 Vw (05/03/2019 [...] demonstr ate no definite abnormality. Negative examination. [facility][id number] Procedure Note Interface, Radiology Results Incoming - [...] structures demonstrate no definite abnormality. Negative examination. [facility]-[id number] Performing Organization Address City/State/ZIP Code P pascale Number [facility] [address] [place] [address] * CT Abdomen Pelvis Wo Contrast (05/03/2019 9:28 AM CDT) Specimen Narrative Performed At EXAMINATION: CT ABDOMEN PELVIS WO CONTRAST [facility]T CLINICAL HISTORY: N18.6 End stage renal disease, E10.69 Type 1 diabetes mellitus with other specified complication, pre kidney pancreas transplant TECHNIQUE: Multiple axial images of the abdomen and pelvis were obtained without intravenous contrast administration. Sa gittal and coronal computerized reformatted images were created from e data set. CT imaging is performed [...] lymph nodes, nonspecific though may be reactive. [id number] Procedure Note Hm Interface, Radiology Results - 05/03/2019 9:40 AM CDT EXAMINATION: CT [...] lymph nodes, nonspecific though may be reactive. [id number] Performing Organization Address [facility] [place] [address] * Low resolution full typing by SSO (05/03/2019 8:30 AM CDT) Interpretation Note: HLA typing was performed [place] N by PCR-SSO DNA based [facility] procedures. HOSPITAL Note: The serological phenotype is an interpretation based on molecular typing data. [facility] Low resolution See link below for PDF Lab [place] full typing by Report [facility]OSPITAL Specimen Blood Performing Organization Address [facility] P pascale Number [facility] [place] [address] PATHOLOGY AND GENOMIC MEDICINE [address] * C1Q class 1 & 2 antibody (05/03/2019 8:30 AM CDT) [facility] C1Q class 1 & 2 See link below for PDF Lab [place] antibody Report [facility] Specimen Blood Performing Organization Address [facility] P pascale Number [facility] [place] [address] PATHOLOGY AND GENOMIC MEDICINE [facility] * HSV 1 & 2 glycoprotein G Ab, IgG (05/03/2019 8:30 AM CDT) HSV 1 NegativeComment: Negative: No Negative [place] glycoprotein G IgG antibodies to HSV1 [facility] Ab, IgG detected. HOSPITAL HSV 2 NegativeComment: Negative: No Negative [place] glycoprotein G IgG antibodies to HSV2 [facility] Ab, IgG detected. HOSPITAL Specimen Serum Performing Organization Address [facility] P pascale Number [facility] [place] [address] PATHOLOGY AND GENOMIC MEDICINE [address] * Helder-Petit virus antibody test (05/03/2019 8:30 AM CDT) EBV Ab to viral Positive (A) Negative [place] capsid Ag, IgG [facility] EBV Ab to viral Negative Negative [place] capsid Ag, IgM [facility] EBV Ab to Positive (A) Negative [place] nuclear Ag, IgG [facility] EBV Ab to early Negative Negative [place] (D) Ag, IgG [facility] Helder-Petit SEE COMMENTComment: Infection [place] virus antibody Status: Results may suggest [facility] interpretation past EBV infection. HOSPITAL Specimen Serum Performing Organization Address City/State/ZIP Code P pascale Number [facility] DEPARTMENT OF [address] [place] [address] PATHOLOGY AND GENOMIC MEDICINE [address] * TB T-SPOT (05/03/2019 8:30 AM CDT) TB T-SPOT SEE NOTE TMHRI - GRAVISS [...] FOR USE WITH T=SPOT.TB TEST. Performed by: [facility] Molecular Tuberculosis Laboratory [facility] ([id number]) [place], [place] [address] Specimen Blood Performing Organization Address City/State/ZIP Code P pascale Number [facility] DEPARTMENT OF [address] [place] [address] PATHOLOGY AND GENOMIC MEDICINE [facility] * Single antigen beads (05/03/2019 8:30 AM CDT) [facility] interpretation information: [facility] DP1=DPB1*01:01/DPA1*02:01 [facility] DP5=DPB1*05:01/DPA1*02:02 DQ9=DQB1*03:03/DQA1*02:01 TU67=HUU4*01:03 NV62=VFY4*01:01 DR51 is a self-antigen [facility] serum ID [id number] [facility] SAB serum 05/03/2019 08:30 AM [place] collection D&T [facility] SAB class I Negative [place] antibody [facility] SAB cPRA class 0 [facility] SAB class II DP1,DR10,DP5,DR53,DR51,DQ9 [place] antibody [facility] SAB cPRA class 74 [facility] Single antigen See link below for PDF Lab [facility] Specimen Blood Performing Organization Address City/State/ZIP Code P pascale Number [facility] DEPARTMENT OF [address] [place] [address] PATHOLOGY AND GENOMIC MEDICINE [facility] [address] [place] [address] [facility] * Miscellaneous referral test (05/03/2019 8:30 AM CDT) Only the most recent of 2 results within the time period is included. Misc test name PTNT LEMA SHOWN ABOVE Misc test SEE NOTE SHOWN ABOVE result Comment: Report Status: FINAL Prothrombin [id number] Mutation, B PTNT Interpretation This individual DOES NOT have the Prothrombin D46879K mutation. Although the Prothrombin [id number] mutation is absent, the individual may have other genetic and environmental risk factors for thrombosis. Consider genetic consultation and counseling of potentially affected family members regarding laboratory testing. ADDITIONAL INFORMATION This test is a direct mutation analysis using PCR amplification, signal generation and release by cleavage of sequence specific alleles ([employer], [employer], [place], [place]). .............................. .............................. Prothrombin [id number] Mutation, B Negative Reference Value: Negative .............................. .............................. PTNT Reviewed By DARRYL Oneil - - - - - - - - - - - - - - - - - - - - - - - - - - - - - - Laboratory Notes: This test has been modified from the electrical control assembler's instructions. Its performance characteristics were determined by [facility] in a manner consistent with CLIA requirements. This test has not been cleared or approved by the U.S. Food and Drug Administration. + + : PERFORMING SITE LEGEND : + + : : [facility] : : : [address] [place] [address] : + + Specimen Narrative Performed At Prothrombin [id number] Mutation [facility] DEPARTMENT OF [facility] Test ID: PTNT PATHOLOGY AND Source: Whole Blood GENOMIC MEDICINE Performing Organization Address City/State/ZIP Code P pascale Number [facility] DEPARTMENT OF [address] [place] [address] [facility] PATHOLOGY AND GENOMIC MEDICINE SHOWN ABOVE * HSV type 1/2 combined Ab, IgM (05/03/2019 8:30 AM CDT) [facility] HSV 1/2 0.71 <=0.89 IV [facility] REF LAB combined Ab, Comment: IgM INTERPRETIVE [...] more than 12 months post-infection. Performed by [facility], [address] [place] [id number] [email or web address], Trung Boyer MD, Lab. Director Specimen Serum Performing Organization Address [facility] P pascale Number [facility]ORY [address] [place], [place] [id number] [facility] REF LAB [address] [place] [id number] * Homocystine, plasma (05/03/2019 8:30 AM CDT) [facility] Homocysteine 17.5 (H) 0.0 - 15.0 umol/L [place] Comment: [facility] The risk for coronary vascular HOSPITAL disease increases progressively with homocysteine concentration. A 3.4 times greater risk is associated with a homocysteine concentration of greater than 15.8 umol/L as compared to a concentration below 14.1 umol/L. Specimen Plasma specimen Performing Organization Address City/[facility] P pascale Number [facility] DEPARTMENT OF [address] [place] [address] PATHOLOGY AND GENOMIC MEDICINE [address] * HLA autologous crossmatch (05/03/2019 8:30 AM CDT) [facility] source Peripheral Blood [facility] [id number] [place] serum ID [facility] serum 05/03/2019 08:30 AM [place] collection D&T [facility] flow XM T Negative [place] cell result, [facility] flow XM B Negative [place] cell result, [facility], [place], operated by [facility] HLA autologous See link below for PDF Lab [place] crossmatch Report [facility] Specimen Blood Performing Organization Address City/[facility]/ZIP Code P pascale Number [facility] DEPARTMENT OF [address] [place] [address] PATHOLOGY [address] * Cytomegalovirus Ab, IgM (05/03/2019 8:30 AM CDT) Pathologist [facility] Cytomegalovirus Negative Negative [place] Ab, IgM [facility] Specimen Serum Performing Organization Address City/[facility]/ZIP [facility] P pascale [facility] [place] [address] * ABORh - transplant (05/03/2019 8:30 AM CDT) Pathologist [facility] ABO grouping O [facility] Rh type POS [facility] Specimen Blood Performing Organization Address City/[facility] P p[facility] [address] [facility] [place] [address] * Functional protein S (05/03/2019 8:30 AM CDT) Pathologist [facility] 91 74 - 160 % [place] protein S Comment: [place] Functional Protein S HOSPITAL performed. If result is decreased Total and Free Protein S Antigen will be performed. Specimen Blood Performing Organization Address City/[facility] P p[facility] Number [facility] DEPARTMENT OF [address] [place] [address] PATHOLOGY [address] * Functional protein C (05/03/2019 8:30 AM CDT) Pathologist [facility] 56 (L) 70 - 165 % [place] protein C Comment: [place] Low Protein C Activity and HOSPITAL prolonged Prothrombin time consistent with vitamin K deficiency, warfarin therapy or liver disease. Recommend repeating Protein C when PT is normal. Reviewed by Huan Keita MD, PhD. Specimen Blood Performing Organization Address City/[facility]/ZIP Code P pascale Number [facility] [place] [address] [address] HOSPITAL * Lupus anticoagulant panel (05/03/2019 8:30 AM CDT) Pathologist [facility] Prothrombin 15.9 (H) 11.5 - 14.5 sec [place] time [facility] INR 1.3 [place] Comment: [place] The International Normalized HOSPITAL Ratio (INR) is a therapeutic monitoring tool for patients who are stable on oral anticoagulant therapy. An INR of 2.0-3.0 is suggested for deep vein thrombosis/pulmonary embolism. PTT 34.0 23.0 - 36.0 sec [place] Comment: [place] PTT therapeutic range for HOSPITAL unfractionated heparin is 61.0-112.0 seconds which corresponds to Anti-Xa 0.3-0.7 U/ml. PTT lupus 36.1 27.0 - 38.0 sec [place] anticoagulant Comment: [place] Lupus anticoagulant (LA) panel HOSPITAL consists of [...] diagnosis. DRVVT 45.4 29.0 - 46.0 sec [place] Comment: [place] This test has been modified HOSPITAL from the manufacturers instructions. The performance characteristics were determined by [facility] in a manner consistent with CLIA requirements. This test has not been cleared or approved by the U.S. Food and Drug Administration. Specimen Blood Performing Organization Address City/State/ZIP Code P pascale Number [facility] [place] [address] PATHOLOGY AND GENOMIC MEDICINE [address] * Cytomegalovirus Ab, IgG (05/03/2019 8:30 AM CDT) Pathologist [facility] Cytomegalovirus Positive (A) Negative [place] Ab, IgG Comment: [place] Positive; IgG antibody to CMV HOSPITAL detected which may indicate exposure to CMV infection. Specimen Serum Performing Organization Address City/[facility]/ZIP Code P pascale Number [place] [id number] PATHOLOGY AND GENOMIC MEDICINE [address] * Fibrinogen (05/03/2019 8:30 AM CDT) Fibrinogen 627 (H) 200 - 450 mg/dL [facility] Specimen Blood Performing Organization Address City/[facility]/ZIP Code P pascale Number [facility] [place] [address] PATHOLOGY AND [facility] MEDICINE [address] * Antithrombin III level (05/03/2019 8:30 AM CDT) Antithrombin 81 80 - 130 % [facility] Specimen Blood Performing Organization Address City/[facility]/ZIP Code P pascale Number [facility] [place] [address] PATHOLOGY AND [facility] MEDICINE [address] * Triglycerides (05/03/2019 8:30 AM CDT) Triglycerides 103 <150 mg/dL [facility] Specimen Plasma specimen Performing Organization Address City/[facility] P [place] [address] [facility] [place] [address] PATHOLOGY AND [facility]ICINE [address] * Phosphorus level (05/03/2019 8:30 AM CDT) Phosphorus 4.6 (H) 2.4 - 4.5 mg/dL [facility] Specimen Plasma specimen Performing Organization Address City/[facility]/ZIP [facility] P [facility] [facility] DEPARTMENT OF [address] [place] [address] PATHOLOGY AND [facility] MEDICINE [address] * Parathyroid hormone (05/03/2019 8:30 AM CDT) PTH 507 (H) 15 - 65 pg/mL [facility] Specimen Blood Performing Organization Address City/[facility]/ZIP [facility] P [facility] [facility] [place] [address] PATHOLOGY AND GENOMIC MEDICINE [address] * LDH (05/03/2019 8:30 AM CDT) LDH 235 (H) 87 - 225 U/L [facility] Specimen Plasma specimen Performing Organization Address City/[facility] P [place] [address] [facility] [place] [address] PATHOLOGY AND GENOMIC MEDICINE [address] * Glucose level (05/03/2019 8:30 AM CDT) Glucose 146 (H) 65 - 99 mg/dL [facility] Specimen Plasma specimen Performing Organization Address City/[facility] P [place] Number [facility] [place] [address] PATHOLOGY AND GENOMIC MEDICINE [address] * Creatinine level (05/03/2019 8:30 AM CDT) Creatinine 4.40 (H) 0.70 - 1.20 mg/dL [facility] Specimen Plasma specimen Performing Organization Address [facility] P p[place] Number [facility] [place] [address] PATHOLOGY AND GENOMIC MEDICINE [address] * Cholesterol (05/03/2019 8:30 AM CDT) Cholesterol 86 <200 mg/dL [facility] Specimen Plasma specimen Performing Organization Address [facility] P p[place] Number [facility] [place] [address] PATHOLOGY AND GENOMIC MEDICINE [address] * Amylase level (05/03/2019 8:30 AM CDT) Amylase 46 28 - 100 U/L [facility] Specimen Plasma specimen Performing Organization Address [facility] P p[place] Number [facility] [place] [address] PATHOLOGY AND GENOMIC MEDICINE [address] * Nicotine and cotinine, serum (04/06/2019 8:00 AM ENGAGEMENT ENGINEER) Nicotine <2.0 0.0 - 1.9 ng/mL [facility] Cotinine <2.0 0.0 - 1.9 ng/mL [place] Comment: [place] This test was developed and HOSPITAL its performance characteristics determined by the Department of Pathology and Genomic Medicine, [facility]. Serum nicotine and metabolite cotinine are tested by HPLC tandem mass spectrometry. It has not been cleared or approved by FDA. The laboratory is regulated under CLIA as qualified to perform high-complexity testing. This test is used for clinical purposes. It should not be regarded as investigational or for research. Specimen Blood Performing Organization Address City/State/ZIP Code P pascale Number [facility] DEPARTMENT [address] * Syphilis total antibody (04/06/2019 8:00 AM ENGAGEMENT ENGINEER) Syphilis total Reactive (A) Non-reactive [place] antibody Comment: [place] Treponemal antibodies are HOSPITAL screened reactive. Non-treponemal antibody test, RPR will be followed. Specimen Blood Performing Organization Address City/State/ZIP Code P pascale Number [address] * HIV Ag/Ab combination (04/06/2019 8:00 AM ENGAGEMENT ENGINEER) HIV Ag/Ab Non-reactive Non-reactive [facility] Specimen Blood Performing Organization Address City/[facility]/ZIP Code P pascale Number [address] * IA-2 antibody (04/06/2019 8:00 AM ENGAGEMENT ENGINEER) IA-2 antibody see note [facility] Comment: Islet Antigen-2 (IA-2) Autoantibody, Serum [facility] test code [id number] IA-2, Autoantibody <5.4 U/mL (Ref Interval: 0.0-7.4) 999 INTERPRETIVE INFORMATION: Islet Antigen-2 (IA-2) Autoantibody, Serum A value greater than or equal to 7.5 Units/mL is considered positive for IA-2 autoantibodies. This assay is intended for the quantitative determination of autoantibodies to Islet Antigen-2 (IA-2) in human serum. Results should be interpreted within the context of clinical symptoms. Specimen Serum Performing Organization Address [facility] P pascale Number [facility] [address] [place] [address] [facility] [address] [place] [address] * Hepatitis B surface Ab, quantitative (04/06/2019 8:00 AM ENGAGEMENT ENGINEER) [facility] Hepatitis B <3.10 IU/L [facility] surface Ab Comment: The anti-HBs is less than 10 IU/L and is therefore negative. There is no evidence of recovery from hepatitis B infection or evidence of antibody response to HBV vaccination. An anti-HBs result greater than or equal to 10 IU/L implies immunity. For post-vaccination antibody testing guidelines for the general public refer to MMWR February 14, 2005/Vol. 54(No. 16);-, and for healthcare workers refer to MMWR [...] Cellular and Tissue-Based Products (HCT/P). Performed by [facility], [address] [place] [id number] [email or web address], Trung Boyer MD, Lab. Director Specimen Serum Performing Organization Address [facility] P pascale Number [facility] [address] [place] [address] [facility] [address] [place] [address] * Hepatitis C antibody (04/06/2019 8:00 AM ENGAGEMENT ENGINEER) [facility] Hepatitis C Ab Non-reactive Non-reactive [facility] Specimen Blood Performing Organization Address [facility] P p[place] Number [facility] DEPARTMENT OF [address] [place] [address] PATHOLOGY AND GENOMIC MEDICINE [address] * Hepatitis A antibody IgM (04/06/2019 8:00 AM ENGAGEMENT ENGINEER) Hepatitis A IgM Non-reactive Non-reactive [facility] Specimen Performing Organization Address City/State/ZIP Code P pascale Number [facility] [place] [address] PATHOLOGY AND GENOMIC MEDICINE [address] * Hepatitis A antibody total (04/06/2019 8:00 AM ENGAGEMENT ENGINEER) Hepatitis A Reactive (A) Non-reactive [place] total Ab Comment: [place] Hepatitis A Total Antibody HOSPITAL reactive. Hepatitis A IgM antibody will be performed and reported separately when completed. Specimen Blood Performing Organization Address City/[facility] [place] [address] PATHOLOGY AND GENOMIC MEDICINE [address] * Drug yuen 9, ser/lilian, scrn w/rflx to conf (04/06/2019 8:00 AM ENGAGEMENT ENGINEER) Amphetamines, Negative Cutoff 30 ng/mL [facility] [...] use. Test developed and characteristics determined by [facility]. See Compliance Statement B: [employer]/ [place] [address] [email or web address], Trung Boyer MD, Lab. Director Specimen Serum Performing Organization Address [facility] P pascale Number [id number] [place] [facility] [address] [place] [address] * Glutamic acid decarboxylase Ab (04/06/2019 8:00 AM ENGAGEMENT ENGINEER) Pathologist [facility] Glutamic acid <5.0 0.0 - 5.0 IU/mL [facility] B decarb Ab Comment: INTERPRETIVE INFORMATION: Glutamic Acid Decarboxylase Antibody A value greater than 5.0 IU/mL is considered positive for Glutamic Acid Decarboxylase Antibody (HERMELINDA Ab). This assay is intended for the semi-quantitative determination of the HERMELINDA Ab in human serum. Results should be interpreted within the context of clinical symptoms. Performed by [facility], [address] [place] [id number] [email or web address], Trung Boyer MD, Lab. Director Specimen Serum Performing Organization Address [facility] P pascale Number [id number] REF LAB [address] [place] [address] * Hepatitis B core antibody total (04/06/2019 8:00 AM ENGAGEMENT ENGINEER) Pathologist [facility] Hepatitis B Non-reactive Non-reactive [place] core total Ab [facility] Specimen Blood Performing Organization Address City/State/ZIP Code P pascale Number [facility] DEPARTMENT OF [address] [place] [address] PATHOLOGY AND [facility] MEDICINE [address] * Treponema pallidum Ab (04/06/2019 8:00 AM ENGAGEMENT ENGINEER) Syphilis Non-reactiveComment: Non-reactive [place] treponemal Ab Treponemal antibody is not [place] confirmed. HOSPITAL Specimen Performing Organization Address City/State/ZIP Code P pascale Number [facility] [place] [address] PATHOLOGY [address] * ABO and Rh (04/06/2019 8:00 AM ENGAGEMENT ENGINEER) Pathologist [facility] ABO grouping O [facility] Rh type POS [facility] Specimen Blood Performing Organization Address City/State/ZIP Code P pascale Number [facility] DEPARTMENT OF [address] [place] [address] PATHOLOGY AND [address] * C-peptide (04/06/2019 8:00 AM ENGAGEMENT ENGINEER) Pathologist [facility] C-peptide 2.2 1.1 - 4.4 ng/mL [facility] Specimen Plasma specimen Performing Organization Address City/[facility]/ZIP Code P pascale Number [facility] [place] [address] PATHOLOGY AND [facility] MEDICINE [address] * Islet cell Ab, IgG (04/06/2019 8:00 AM ENGAGEMENT ENGINEER) Islet cell Ab <1:4 <1:4 [facility] Comment: INTERPRETIVE INFORMATION: Islet Cell Ab, IgG Islet cell antibodies (ICAs) are associated with type 1 diabetes (TID), an autoimmune endocrine disorder. ICAs may be present years before the onset of clinical symptoms. To calculate Juvenile Diabetes Foundation (JDF) units: multiply the titer x 5 (1:8 8 x 5 = 40 JDF Units). Test developed and characteristics determined by [facility]. See Compliance Statement A: [employer]/CS Performed by [facility], [address] [place] [address] [email or web address], Trung Boyer MD, Lab. Director Specimen Serum Performing Organization Address City/State/ZIP Code P pascale Number [facility] [address] [place] [address] [facility] [address] [place] [address] * RPR (04/06/2019 8:00 AM ENGAGEMENT ENGINEER) RPR Non-reactive Non-reactive [place] Comment: [place] Results suggest no serological HOSPITAL evidence of active syphilis infection. Possible syphilis (early or latent) or previously treated syphilis cannot be ruled out. Confirmatory treponemal test, TP-PA will be performed. Specimen Performing Organization Address City/[facility]/ZIP Code P pascale Number [facility] DEPARTMENT OF [address] [place] [address] PATHOLOGY AND GENOMIC MEDICINE [place] [address] [place] [address] HOSPITAL after 12/10/2018 Insurance Type Payer Benefit Subscriber ID Effective Phone Address Plan / Dates Group PPO BCBS BCBS OUT [id number] 2018-P OF STATE resent Advance Directives For more information, please contact: [phone] Patient Hospitality Intern Explanation Type Date Recorded Advance Directives, Living Will and Medical Power of Feed Adviser Advance Directives, 03/29/2019 11:41 AM Living Will and Medical Power of Feed Adviser
--- OUTSIDE RECORDS SUMMARY | 2019-12-11 23:48 | XMS REPORT | Continuity of Care Document ---
Author Author [facility] t Organization [facility] Address [address] [place] [address] Phone Unavailable Care Team Providers Care Blanker Operator Name Role Phone MD ABHIJIT YODER MD PCP Aliza FOSS, Arcelia Attphys Unavailable Dominique [facility]ON[facility]ini Cheung Attphys Reg LERNER M Melani Attphys Unavailable Ty FOSS, Bisi Attphys Unavailable Gaurav Vila Attphys Unavailable Bisi Silva LCSW Attphys Unavailable Sonido Gomez MD Attphys Meghna Khan MD Attphys Srini Beth MD Attphys ABHIJIT YODER Attphys Unavailable Alex OLSON, Hola Montenegro Attphys YANETH WEAVER Attphys Unavailable Alexandre MARSH Attphys Unavailable Lorie Driver Attphys Unavailable CASTRO JALLOH Attphys Unavailable DELLA NG M.D. Attphys Unavailable ROSEY, P LUZ MARINA Attphys Unavailable MARK, S AMBICA Attphys Unavailable MANEEVESE, V ADRIEL Attphys Unavailable Yayo HILLS Attphys Unavailable O'MANNING, VARINDER Admphys Unavailable YODERABHIJIT Admphys Unavailable HAMPEL, CASTRO Admphys Unavailable Payers Payer Name Policy Type Policy Number Effective Date Expiration Date Christiano richardson BCBSBCBS OUT OF [id number] 2018 00:00:00 Alejandro Arias [employer] [place] Ppo [id number] 2018 00:00:00 [facility] [employer] Ppo [id number] [facility] Problems Condition Name Condition Details Condition Category Status Onset Date Resolution Date Last Treatment Date Treating Clinician Comments Source Urinary tract infection associated with cystostomy cat heter Urinary tract infection associated with cystostomy catheter Disease Active 2019-08-14 00:00:00 Alejandro salazar 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 2019-08-01 00:00:00 Alejandro Arias Pre-transplant evaluation for kidney and pancreas yoder splant Pre-transplant evaluation for kidney and pancreas transplant Disease Active 2019-04-06 00:00:00 Alejandro salazar Diabetes mellitus type 1 Diabetes mellitus type 1 Disease Acti ve 2019-02-21 00:00:00 Alejandro salazar 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 Active 2017-04-16 00:00:00 Allison Arias Infection of right knee Infection of right knee Disease Active 2016-03-27 00:00:00 Alejandro salazar Acute renal failure Acute renal failure Problem Active 2015-08-09 00:00 :00 [facility] Dehydration Dehydration Problem Active 2015-08-09 00:00:00 [facility] Diarrhea Diarrhea Problem Active 2015-08-09 00:00:00 [facility] GI bleed GI bleed Problem Active 2015-08-09 00:00:00 [facility] Hyperglycemia Hyperglycemia Problem Active 2015-08-09 00:00:00 [facility] Sepsis Sepsis Problem Active 2015-04-15 00:00:00 [facility] Renal insufficiency Renal insufficiency Problem Active 2015-04-15 00:00 :00 [facility] Bacteremia Bacteremia Problem Active 2015-03-30 00:00:00 [facility] Prostatitis Prostatitis Problem Active 2015-03-30 00:00:00 [facility] Complicated urinary tract infection UTI (urinary tract infection ) Problem Active 2015-03-30 00:00:00 [facility] Pyelonephritis Pyelonephritis Problem Active 2015-02-10 00:00:00 [facility] History of left foot drop History of left foot drop Problem Active [facility] Arthralgia of right ankle Arthralgia of right ankle Problem Active [facility] Equinus contracture of right ankle Equinus contracture of right ankle Problem Active [facility] Fracture of right tibial plateau, closed , with routine healing, subsequent encounter Fracture of right tibial plateau, closed , with routine healing, subsequent encounter Problem Active [facility] Acute renal insufficiency Acute renal insufficiency Problem Active [facility] Bladder wall thickening Bladder wall thickening Problem Active [facility] Fever Fever Problem Active [facility] Hydroureteronephrosis Hydroureteronephrosis Problem Active [facility] Hypomagnesemia Hypomagnesemia Problem Active [facility] Indwelling Barcenas catheter present Indwelling catheter presen t on admission Problem Active [facility] Obstructive uropathy Obstructive uropathy Problem Active [facility] Displacement of ureteral stent Ureteral stent displacement Problem Activ e [facility] Vomiting Vomiting Problem Active [facility] Abdominal pain Abdominal pain Problem Active [facility] Constipation Constipation Problem Active [facility] Edema of extremities Edema extremities Problem Active [facility] End-stage renal disease on peritoneal dialysis Problem Active [facility] Allergies, Adverse Reactions, Alerts Allergy Name Allergy Type Status Severity Reaction(s) Onset Date Inacti ve Date Treating Clinician Comments Source Iodinated Contrast Media Allergy to substance Active 11-05-10 00:00:[address] [facility] Dye Propensity to adverse reactions to drug Active 2016-03-17 00:00:00 CT contrast. IV dye. Excessive sneezing. Alejandro Arias CT CONTRAST DA Active MO 2015-10-12 00:00:00 [facility] PO CONTRAST Allergy to substance Active Mild 2007-07-06 00:00:00 [facility] Family History Family Member Diagnosis Comments Start Date Stop Date Source Maternal grandmother Hypertension Timi rusty [facility] Maternal grandmother Kidney disease Alejandro Arias Natural mother Diabetes [facility]ist Social History Social Habit Start Date Stop Date Quantity Comments Source Sex Assigned At Treverdarlene cohenandrea Arias Tobacco use and exposure 2019-08-09 00:00:00 2019-08-09 00:00:00 Neve r used Alejandro Arias Alcohol intake 2019-08-09 00:00:00 2019-08-09 00:00:00 Current non-drinker of alcohol (finding) Alejandro Arias Smoking Status Start Date Stop Date Source Never smoker Alejandro elkins Medications Ordered Medication Name Filled Medication Name Start Date Stop Da te Current Medication? Ordering Clinician Indication Dosage Frequency Signature (SIG) Comments Components Source insulin ASPART (NovoLOG) 100 unit/mL injection 2 13:14:56 2019-08-19 00:00:00 No 5U Q.[id number] In ject 5 Units under the skin 3 (three) times a day before meals. Ana Cristina Arias amoxicillin (AMOXIL) 500 MG capsule 2019-08-19 13:14:5 6 2019-08-19 00:00:00 No 500mg Q.[id number] Take 500 mg by [facility] 3 (three) times a day. Alejandro Arias calcium carbonate (TUMS) 200 mg calcium (500 mg) chewable ta blet 2019-08-19 13:14:52 Yes 1{tbl} Q.[id number] 3D Chew 1 tablet 3 (three) times daily after meals. Alejandro Arias gabapentin (NEURONTIN) 300 mg capsule 2019-08-19 13:14:52 Yes 300mg Q.[id number] Take 300 mg by mouth 3 (three) times a day. Alejandro Arias sodium bicarbonate 650 mg tablet 2019-08-19 13:14:52 Yes 1300mg Q.[id number] Take 1,300 mg by mouth 3 (three) times a day. Alejandro Arias NIFEdipine XL (PROCARDIA XL) 30 MG 24 hr tablet 2019-08-19 13:14 :52 Yes 30mg Q.5D Take 30 mg by mouth 2 (two) times a day. Alejandro Arias magnesium oxide (MAG-OX) 400 mg (241.3 mg magnesium) tablet 2019-08-19 13:14:52 Yes 800mg Q.[id number] 3D Take 800 mg by mouth 3 (three) times a day. Alejandro Arias ciprofloxacin (CIPRO) 500 MG tablet 2019-08-19 00:00:0 0 2019-09-18 23:59:00 No 500mg QD Take 1 tablet (500 mg total) by mouth da darci for 30 days. Alejandro Arias insulin lispro (HumaLOG) 100 unit/mL injection 2 00:00:00 2019-09-17 23:59:00 No 9U Q.[id number] In ject 9 Units under the skin 3 (three) times a day before meals for 30 days. Alejandro Arias doxycycline (VIBRAMYCIN) 100 MG capsule 00:00:00 2019-09-17 23:59:00 No 100mg Q.5D Take 1 capsule (100 mg total) by mouth 2 (two) times a day for 30 days. Alejandro Arias ergocalciferol (VITAMIN D2) 50,000 unit capsule 2019-08-15 11:27:2019-08-15 00:00:00 No 28846M Q7D Take 50,000 Units by mouth once a week. Alejandro Arias cholecalciferol, vitamin D3, (VITAMIN D3) 2,000 unit capsule capsule 2019-08-15 11:27:00 2019-08-15 00:00:00 No 2000U QD Take 2,000 Units by mouth daily. Alejandro Arias isoniazid (NYDRAZID) 300 MG tablet 2019-08-01 00:00:00 202 23:59:00 No 900mg Q7D Take 3 tablets (900 mg total) by kyle th once a week for 12 doses. Alejandro Arias rifapentine 150 mg tablet 2019-08-01 00:00:00 2019-10-18 23:59:0 0 No 6{tbl} Q7D Take 6 tablets by mouth once a week for 12 doses. Alejandro Arias ciprofloxacin (CIPRO) 500 MG tablet [...] TAKE 1 CA PSULE 3 TIMES DAILY. [facility] Furosemide Furosemide 2018-06-27 13:06:00 2018-10-17 00:00:00 No 40 Daily [facility] Nifedipine (Nifedipine Er) 30 Mg TAB.ER.24 Nifedipine (Nifedipine Er) 30 Mg TAB.ER.24 2018-06-27 13:06:00 2018-10-17 00:00:00 No 60 Daily [facility] Amoxicillin Amoxicillin Yes 500 Three Times A Da y [facility] Fluconazole (Diflucan) 100 Mg TABLET Fluconazole (Diflucan) 100 Mg TABLET Yes 100 Daily [facility] Insulin Glargine (Lantus 3ML Pen) 100 Units/1 Ml INJ I nsulin Glargine (Lantus 3ML Pen) 100 Units/1 Ml INJ Yes Three Time s Daily With Meals [facility] Magnesium Oxide (Mag-Oxide) 400 Mg TABLET Magnesium Ox jaziel (Mag-Oxide) 400 Mg TABLET Yes 400 Three Times A Day [facility] Nifedipine (Nifedipine Er) 30 Mg TABLET.ER Nifedipine (Nifedipine Er) 30 Mg TABLET.ER Yes 30 Twice A Day [facility] Sodium Bicarbonate Sodium Bicarbonate Yes 1300 Th ree Times A Day [facility] Fluconazole (Diflucan) 100 Mg TABLET Fluconazole (Diflucan) 100 Mg TABLET 2019-06-22 00:00:00 No 100 Daily [facility] Furosemide (Lasix) 40 Mg TABLET Furosemide (Lasix) 40 Mg TABLET 2019-06-22 00:00:00 No 40 Daily as needed for Edema To Lo wer Extremities [facility] Gabapentin Gabapentin 2019-06-22 00:00:00 No 300 Thr ee Times A Day [facility] Insulin Aspart (Novolog) 100 Unit/1 Ml CARTRIDGE Insul in Aspart (Novolog) 100 Unit/1 Ml CARTRIDGE 2019-06-22 00:00:00 No 5 Befo re Meals [facility] Magnesium Oxide (Magox 400) 400 Mg TABLET Magnesium Ox jaziel (Magox 400) 400 Mg TABLET 2019-06-22 00:00:00 No 2 Three Times A Day [facility] Nifedipine (Nifedipine Er) 60 Mg TAB.ER.24 Nifedipine (Nifedipine Er) 60 Mg TAB.ER.24 2019-06-22 00:00:00 No 30 Twice A Day [facility] Sodium Bicarbonate Sodium Bicarbonate 2019-06-22 00:00:00 No 2 Three Times A Day [facility] Ergocalciferol (Vitamin D2) (Vitamin D2) 2,000 Unit TA BLET Ergocalciferol (Vitamin D2) (Vitamin D2) 2,000 Unit TABLET 2019-05-30 00:00:00 No 92681 Q Week [facility] Lactulose Lactulose 2019-02-11 00:00:00 No 30 Every 6 Hours as needed for Constipation [facility] Metoclopramide Hcl (Reglan) 10 Mg TABLET Metoclopramid e Hcl (Reglan) 10 Mg TABLET 2019-02-11 00:00:00 No 10 Before Meals And At Bedtime [facility] Veltomasa Concepcion 2019-02-11 00:00:00 No 1 Daily [facility] Sennosides/Docusate Sodium (Senokot-S Tablet) 1 Each T ABLET Sennosides/Docusate Sodium (Senokot-S Tablet) 1 Each TABLET 2018-10-31 00:00:00 No [facility] Nifedipine (Nifedipine Er) 30 Mg TAB.ER.24 Nifedipine (Nifedipine Er) 30 Mg TAB.ER.24 2018-06-27 00:00:00 No Daily [facility] Vyzulta Vyzulta 2018-06-21 00:00:00 No .024 Daily [facility] Amlodipine Besylate Amlodipine Besylate 2018-05-05 00:00:00 No 10 Daily [facility] Metoprolol Tartrate Metoprolol Tartrate 2018-05-05 00:00:00 No 25 Twice A Day [facility] Ciprofloxacin Hcl (Cipro) 500 Mg TABLET Ciprofloxacin Hcl (C ipro) 500 Mg TABLET 2017-08-29 00:00:00 No 500 Daily [facility] Doxycycline Hyclate Doxycycline Hyclate 2017-08-29 00:00:00 No 100 Twice A Day [facility] Fluconazole Fluconazole 2017-08-29 00:00:00 No 200 D aily [facility] Insulin Detemir (Levemir) 100 Unit/1 Ml VIAL Insulin D etemir (Levemir) 100 Unit/1 Ml VIAL 2017-08-29 00:00:00 No 20 Bedtime [facility] Oxybutynin Chloride (Oxybutynin Chloride Er) 5 Mg TAB. ER.24 Oxybutynin Chloride (Oxybutynin Chloride Er) 5 Mg TAB.ER.24 2017-08-29 00:00:00 No 15 Daily [facility] Cephalexin Cephalexin 2016-06-04 00:00:00 No 500 Fou r Times Daily [facility] Hydrocodone Bit/Acetaminophen ([place] 5-325 Tablet) 1 E ach TABLET Hydrocodone Bit/Acetaminophen ([place] 5-325 Tablet) 1 Each TABLET 2016-06-04 00: 00:00 No 1 Every 6 Hours as needed for Pain [facility] Promethazine Hcl Promethazine Hcl 2016-06-04 00:00:00 No 25 Every 4 Hours [facility] Tramadol Hcl (Ultram) 50 Mg TABLET Tramadol Hcl (Ultram) 50 Mg T ABLET 2016-06-04 00:00:00 No Every 6 Hours as nee ded for Pain [facility] Fluticasone Propionate Fluticasone Propionate 2015-08-08 00:00:00 No 1 Twice A Day [facility] Meropenem (Merrem) 500 Mg INJ Meropenem (Merrem) 500 Mg INJ 2015-08-08 00:00:00 No 500 Every 8 Hours [facility] Metoclopramide Hcl (Reglan) 10 Mg TABLET Metoclopramid e Hcl (Reglan) 10 Mg TABLET 2015-08-08 00:00:00 No 10 Before Meals And At Bedtime [facility] Pantoprazole Sodium (Protonix) 40 Mg TABLET. Pantopr azole Sodium (Protonix) 40 Mg TABLET. 2015-08-08 00:00:00 No 40 Every Morni ng [facility] Amoxicillin/Potassium Clav (Augmentin 500-125 Tablet) 1 Each TABLET Amoxicillin/Potassium Clav (Augmentin 500-125 Tablet) 1 Each TABLET 2015-04-11 00:00:00 No 500 Twice A Day [facility] Fluconazole (Diflucan) 100 Mg TABLET Fluconazole (Diflucan) 100 Mg TABLET 2015-04-11 00:00:00 No Daily [facility] Tamsulosin Hcl (Flomax*) 0.4 Mg CAP Tamsulosin Hcl (Flomax*) 0.4 Mg CAP 2015-03-30 00:00:00 No .4 Bedtime [facility] Acetaminophen With Codeine (Tylenol With Codeine #3 Ta blet) 1 Each TABLET Acetaminophen With Codeine (Tylenol With Codeine #3 Tablet) 1 Each TABLET 2015-03-08 00:00:00 No 300 Every 6 Hours as nee ded for Pain [facility] Senna Fruit/Conc/Doc Sod/Bisa (Senna-S Tablet) 1 Ea TA B Senna Fruit/Conc/Doc Sod/Bisa (Senna-S Tablet) 1 Ea TAB 2015-03-08 00:00:00 No 1 Bedtime [facility] Hydrocodone Bit/Acetaminophen ([place] 5-325 Tablet) 1 E ach TABLET Hydrocodone Bit/Acetaminophen ([place] 5-325 Tablet) 1 Each TABLET 2015-02-22 00: 00:00 No Daily [facility] Insulin Npl/Insulin Lispro (Humalog Mix 50-50 Kwikpen) 100 Unit/1 Ml INSULN.PEN Insulin Npl/Insulin Lispro (Humalog Mix 50-50 Kwikpen) 100 Unit/1 Ml INSULN.PEN 2015-02-22 00:00:00 No 15 Units Every A.m . [facility] Lisinopril Lisinopril 2015-02-22 00:00:00 No Ketty ly [facility] Amoxicillin/Potassium Clav (Augmentin 875-125 Tablet) 1 Each TABLET Amoxicillin/Potassium Clav (Augmentin 875-125 Tablet) 1 Each TABLET 2015-02-11 00:00:00 No Twice A Day [facility] Cephalexin Monohydrate (Keflex) 500 Mg CAPSULE Cephale leonela Monohydrate (Keflex) 500 Mg CAPSULE 2015-02-11 00:00:00 No 500 Three Cm es A Day [facility] Docusate Sodium (Colace) 100 Mg CAP Docusate Sodium (Colace) 100 Mg CAP 2015-02-11 00:00:00 No Daily [facility] Insulin Glargine,Hum.rec.anlog (Lantus) 100 Unit/1 Ml CARTRIDGE Insulin Glargine,Hum.rec.anlog (Lantus) 100 Unit/1 Ml CARTRIDGE 2014 00:00:00 No 45 Units At Bedtime [facility] Metformin Hcl Metformin Hcl 2015-02-11 00:00:00 No 500 Twice Daily [facility] Vital Signs Vital Name Observation Time Observation Value Comments Source Systolic blood pressure 2019-08-19 10:13:08 137 mm[Hg] [facility] Diastolic blood pressure 2019-08-19 10:13:08 84 mm[Hg] [facility] Heart rate 2019-08-19 10:13:08 61 /min [facility] Body temperature 2019-08-19 10:13:08 36.5 Ashley [facility] Respiratory rate 2019-08-19 10:13:08 16 /min [facility] Oxygen saturation in Arterial blood by Pulse oximetry 08-18 10:13:08 98 /min [facility] Body height 2019-08-17 12:23:58 180.3 cm [facility] Body weight 2019-08-14 21:10:00 95.255 kg [facility] BMI 2019-08-14 21:10:00 29.29 kg/m2 [facility] Body Temperature 2019-08-10 11:13:00 98.9 [degF] [facility] BMI (Body Mass Index) 2019-08-05 13:40:00 29.3 kg/m2 [facility] Weight 2019-08-04 20:39:00 210 [lb_av] [facility] Body Temperature 2019-06-22 20:30:00 97.4 [degF] [facility] BMI (Body Mass Index) 2019-06-12 17:12:00 29.3 kg/m2 [facility] Weight 2019-06-12 11:09:00 210 [lb_av] [facility] Procedures Procedure Date / Time Performed Performing Clinician Sourc e POC GLUCOSE 2019-08-19 12:21:00 Varinder Beth ethodist POC GLUCOSE 2019-08-19 07:18:00 Kirit Varinder Nicole ethodist URINE CULTURE 2019-08-18 22:47:00 Castro Jalloh Maryam Beauchamp odist POC GLUCOSE 2019-08-18 21:27:00 Kirit Varinder Nicole ethodist URINALYSIS SCREEN AND MICROSCOPY, WITH REFLEX TO CULTURE 202 21:05:00 Shubham Castro [facility] POC GLUCOSE 2019-08-18 19:02:00 Kirit Varinder Nicole ethodist POC GLUCOSE 2019-08-18 17:56:00 Kirit Varinder Nicole ethodist POC GLUCOSE 2019-08-18 15:48:00 Kirit Varinder Nicole ethodist POC GLUCOSE 2019-08-18 15:27:00 Kirit Varinder Nicole ethodist POC GLUCOSE 2019-08-18 12:41:00 Kirit Varinder Nicole ethodist POC GLUCOSE 2019-08-18 08:20:00 Kirit Varinder Nicole ethodist POC GLUCOSE 2019-08-17 21:13:00 Kirit Varinder Nicole ethodist POC GLUCOSE 2019-08-17 17:44:00 Kirit Varinder Nicole ethodist POC GLUCOSE 2019-08-17 12:23:00 Kirit Varinder Nicole ethodist POC GLUCOSE 2019-08-17 07:51:00 Varinder Beth UmuHéctor Alejandro Nicole ethodist POC GLUCOSE 2019-08-16 22:54:00 Kirit Varinder Nicole ethodist POC GLUCOSE 2019-08-16 16:53:00 Kirit Varinder NicoleHéctor Alejandro Nicole ethodist POC GLUCOSE 2019-08-16 11:38:00 Kirit Varinder NicoleHéctor Alejandro Nicole ethodist POC GLUCOSE 2019-08-16 07:47:00 Kirit Varinder Nicole ethodist HEPATITIS B SURFACE ANTIGEN 2019-08-16 04:45:00 Christine Jerez COVID-19 QUALITATIVE PCR 2019-08-16 00:30:00 Varinder Beth POC GLUCOSE 2019-08-15 21:02:00 Varinder Beth ethodist POC GLUCOSE 2019-08-15 17:51:00 Varinder Beth ethodist POC GLUCOSE 2019-08-15 11:48:00 Varinder Beth UmuHéctor Allen [facility]mu ethodist POC GLUCOSE 2019-08-15 07:49:00 Varinder Beth ethodist HC COMPLETE BLD COUNT W/AUTO DIFF 2019-08-15 04:42:00 Sherice Beth BASIC METABOLIC PANEL 2019-08-15 04:42:00 Varinder Beth HEMOGLOBIN A1C 2019-08-15 04:42:00 Varinder Beth ethodist ESTIMATED GFR 2019-08-15 04:42:00 Varinder Beth ethodist ECG 12-LEAD 2019-08-15 01:09:38 Varinder Beth ethodist POC GLUCOSE 2019-08-14 23:13:00 Varinder Beth ethodist CELL COUNT AND DIFFERENTIAL, BODY FLUID 2019-08-14 18:30:00 Phel Adriel mcgraw CRYSTAL ANALYSIS 2019-08-14 18:30:00 JoynerAdriel valdovinos [facility] ANAEROBIC CULTURE 2019-08-14 18:28:00 Adriel Joyner [facility] URINE CULTURE 2019-08-14 18:28:00 BillMeghna Alejandro Meth odist FUNGUS CULTURE 2019-08-14 18:28:00 BillMeghna Allen Meth odist AFB CULTURE 2019-08-14 18:28:00 BillMeghna Allen Meth odist FUNGUS SMEAR 2019-08-14 18:28:00 BillMeghna Meth odist AFB STAIN 2019-08-14 18:28:00 YaniraMeghna cortez Allen Meth odist AEROBIC CULTURE 2019-08-14 18:03:00 BillMeghna Allen Meth odist GRAM STAIN 2019-08-14 18:03:00 Meghna Khan URINALYSIS SCREEN AND MICROSCOPY, WITH REFLEX TO CULTURE 17:45:00 JoynerAdriel valdovinos BLOOD CULTURE, AEROBIC & ANAEROBIC 2019-08-14 16:45:00 Varinder Beth BLOOD CULTURE, AEROBIC & ANAEROBIC 2019-08-14 16:15:00 Joyner, Luther Arias HC COMPLETE BLD COUNT W/AUTO DIFF 2019-08-14 16:15:00 Joyner, Pallavi Arias PROTHROMBIN TIME WITH INR 2019-08-14 16:15:00 JoynerAdriel PARTIAL THROMBOPLASTIN TIME (PTT) 2019-08-14 16:15:00 Joyner, Pallavi Arias SEDIMENTATION RATE 2019-08-14 16:15:00 JoynerAdriel valdovinos ethodist C-REACTIVE PROTEIN 2019-08-14 16:15:00 JoynerAdriel ethodist COMPREHENSIVE METABOLIC PANEL 2019-08-14 16:15:00 JoynerAdriel ESTIMATED GFR 2019-08-14 16:15:00 Meghna Khan XR KNEE 4+ VW RIGHT 2019-08-14 14:34:[address] of abdomen and pelvis without contrast 2019-08-04 00:00:00 [facility] CARDIOLIPIN ANTIBODIES 2019-08-01 12:17:00 Yaneth Weaver X-ray of chest, two views 2019-06-16 00:00:00 [facility] RESECTION OF RIGHT KIDNEY, OPEN APPROACH 2019-06-13 00:00:00 [facility] PERFORMANCE OF URINARY FILTRATION, <6 HRS/DAY 2019-06-12 00:00:0 0 [facility] Ultrasound guidance for vascular access 2019-06-02 00:00:00 FAIZA ENGEL [facility] INSERT OF TUNNEL VAD INTO CHEST SUBCU/FASCIA, OPEN APPROACH 2019-06-02 00:00:00 [facility] REMOVAL OF TUNNEL VAD FROM TRUNK SUBCU/FASCIA, OPEN AP PROACH 2019-06-02 00:00:00 [facility] INSERTION OF INFUSION DEV INTO SUP VENA CAVA, PERC APPROACH 2019-06-02 00:00:00 [facility] ULTRASONOGRAPHY OF SUPERIOR VENA CAVA, GUIDANCE 2019-06-02 00:00 :[address] [facility] [address] of abdomen and pelvis without contrast 2019-05-30 00:00:00 [facility] Ultrasound guidance for vascular access 2019-05-16 00:00:00 FAIZA ENGEL [facility] INSERT OF TUNNEL VAD INTO CHEST SUBCU/FASCIA, PERC APPROACH 2019-05-16 00:00:00 [facility] INSERTION OF INFUSION DEVICE INTO R ATR[facility], PERC APPROACH 05-15 00:00:00 [facility] ULTRASONOGRAPHY OF SUPERIOR VENA CAVA, GUIDANCE 2019-05-16 00:00 :00 [facility] INSERT OF INFUSION DEV INTO PERITON CAV, PERC ENDO APPROACH 2019-05-12 00:00:00 [facility] IRRIGATION OF PERITON CAV USING DIALYSATE, PERC APPROACH 2019-04 00:00:00 [facility] REMOVAL OF INTRALUMINAL DEVICE FROM URETER, ENDO 2019-05-10 00:0 0:00 [facility] DILATION OF RIGHT URETER WITH INTRALUMINAL DEVICE, ENDO 00:00:00 [facility] CHANGE DRAINAGE DEVICE IN BLADDER, EXTERNAL APPROACH 2019-05-10 00:00:00 [facility] X-ray of chest, two views 2019-05-06 00:00:00 JC CATES [facility] XR CHEST 2 VW 2019-05-03 09:35:[address] ABDOMEN PELVIS WO CONTRAST 2019-05-03 09:28:50 Claudio Weaver CHOLESTEROL 2019-05-03 08:30:00 Yaneth Weaver TRIGLYCERIDES 2019-05-03 08:30:00 Yaneth Weaver GLUCOSE LEVEL 2019-05-03 08:30:00 Weaver, Yaneth Arias CREATININE LEVEL 2019-05-03 08:30:00 Weaver, Yaneth Mistry on [facility] PHOSPHORUS LEVEL 2019-05-03 08:30:00 Weaver, Yaneth Mistry on [facility] LDH 2019-05-03 08:30:00 Weaver, Yaneth Cunninghamist CYTOMEGALOVIRUS AB, IGG 2019-05-03 08:30:00 Weaver, Yaneth Cunninghamist CYTOMEGALOVIRUS AB, IGM 2019-05-03 08:30:00 Weaver, Yaneth Cunninghamist HELDER-VEE VIRUS ANTIBODY TEST 2019-05-03 08:30:00 Weaver, Kermit sutton Abhijit Cunninghamist HSV TYPE 1/2 COMBINED AB, IGM 2019-05-03 08:30:00 Weaver, Claudio Arias HSV 1 & 2 GLYCOPROTEIN G AB, IGG 2019-05-03 08:30:00 Weaver, Kermit lesley [facility] PARATHYROID HORMONE 2019-05-03 08:30:00 Weaver, Yaneth Cunninghamist ABORH - TRANSPLANT 2019-05-03 08:30:00 Weaver, Yaneth Cunninghamist TB T-SPOT 2019-05-03 08:30:00 Weaver, Yaneth Cunninghamist HOMOCYSTINE, PLASMA 2019-05-03 08:30:00 Weaver, Yaneth Arias ANTITHROMBIN III LEVEL 2019-05-03 08:30:00 Weaver, Yaneth Arias FUNCTIONAL PROTEIN C 2019-05-03 08:30:00 Weaver, Yaneth Arias FUNCTIONAL PROTEIN S 2019-05-03 08:30:00 Weaver, Yaneth Arias CARDIOLIPIN ANTIBODIES 2019-05-03 08:30:00 Weaver, Yaneth Arias MTHFR MUTATION 2019-05-03 08:30:00 Weaver, Yaneth Cunninghamist FIBRINOGEN 2019-05-03 08:30:00 Weaver, Yaneth Arias LUPUS ANTICOAGULANT PANEL 2019-05-03 08:30:00 Weaver, Yaneth Cunninghamist AMYLASE LEVEL 2019-05-03 08:30:00 Weaver, Yaneth Arias [...] PROTHROMBIN TIME WITH INR 2019-04-06 08:00:00 Weaver, Yaneht Arias PARTIAL THROMBOPLASTIN TIME (PTT) 2019-04-06 08:00:00 Weaver, Leoncio Arias C-PEPTIDE 2019-04-06 08:00:00 Weaver, Yaneth Arais HEMOGLOBIN A1C 2019-04-06 08:00:00 Weaver, Yaneth Arias [...] DEVICE FROM KIDNEY, EXTERNAL APPROACH 2018-02 00:00:00 [facility] DRAINAGE OF RIGHT KIDNEY WITH DRAINAGE DEVICE, PERC AP PROACH 2019-02-15 00:00:00 [facility] DILATION OF RIGHT URETER WITH INTRALUMINAL DEVICE, ENDO 00:00:00 [facility] DILATION OF LEFT URETER, ENDO 2019-02-15 00:00:00 [facility] FLUOROSCOPY OF KIDNEY, URETER & BLADDER USING L [facility] CO NTRAST 2019-02-15 00:00:00 [facility] CHANGE DRAINAGE DEVICE IN BLADDER, EXTERNAL APPROACH 2019-02-15 00:00:00 [facility] Echo guide for biopsy 2019-02-15 00:00:00 [facility] RESECTION OF PREPUCE, EXTERNAL APPROACH 2018-11-05 00:00:00 [facility] CHANGE DRAINAGE DEVICE IN BLADDER, EXTERNAL APPROACH 2018-11-05 00:00:00 [facility] DILATION OF BILATERAL URETERS, ENDO 2018-11-05 00:00:00 [facility] FLUOROSCOPY OF KIDNEY, URETER & BLADDER USING L [facility] NTRAST 2018-11-05 00:00:00 [facility] EXCISION OF LOWER ESOPHAGUS, ENDO, DIAGN 2018-11-01 00:00:00 [facility] EXCISION OF STOMACH, PYLORUS, ENDO, DIAGN 2018-11-01 00:00:[address] [facility] [address] of abdomen and pelvis without contrast 2018-10-31 00:00:[address] [facility] [address] of abdomen and pelvis without contrast 2018-10-18 00:00:00 [facility] Plan of Care Planned Activity Planned Date Details Comments Source Future Scheduled Test 2019-09-24 00:00:00 INFLUENZA VACCINE [code = INFLUENZA VACCINE] [facility] Future Scheduled Test 1990 00:00:00 DIABETIC FOOT EXAM [code = DIABETIC FOOT EXAM] [facility] Scheduled Test 1980 00:00:00 DIABETIC RETINAL E YE EXAM [code = DIABETIC RETINAL EYE EXAM] [facility] Instructions Heart Healthy Diet [facility] Instructions Infection Control [facility] Instructions Urinary Tract Infection - Men [facility] Encounters Start Date/Time End Date/Time Encounter Type Admission Type Attendi [facility] Care Department Encounter ID Source 2019-08-14 00:00:00 2019-08-19 00:00:00 Inpatient [facility] [id number] [facility] 2019-08-04 23:31:00 2019-08-10 12:40:00 Discharged Inpatient 1 YODERABHIJIT [facility] [id number] [facility] 2019-08-01 00:00:00 2019-08-01 00:00:[address] [facility] [id number] [facility] 2019-08-01 00:00:00 2019-08-01 00:00:00 Outpatient MERCY PRESSLEY [facility] [id number] [facility] 2019-06-12 11:12:00 2019-06-22 20:38:00 Discharged Inpatient 1 GABINO [facility] [id number] [facility] 2019-06-09 03:55:2019-06-09 06:51:00 Departed Emergency Room 1 [facility] [id number] [facility] 2019-05-30 02:39:00 2019-06-03 17:47:00 Discharged Inpatient 1 [facility]JIT [facility]ODER [facility] [id number] [facility]. Tommie kes - Patients [facility] 2019-05-06 21:01:00 2019-05-21 14:22:00 Discharged Inpatient 1 ABHIJIT YODER [facility] [id number] [facility]. Tommie kes [facility] 2019-05-03 00:00:00 2019-05-03 00:00:[address] [facility] [id number] [facility] 2019-05-03 00:00:00 2019-05-03 00:00:[address] [facility] [id number] [facility] 2019-05-03 00:00:00 2019-05-03 00:00:[address] [facility] [id number] [facility] 2019-03-20 22:29:00 2019-03-21 03:04:00 Departed Emergency Room [facility] [id number] [facility] 2019-02-15 09:15:00 2019-02-20 13:07:00 Discharged Inpatient 3 CASTRO JALLOH [facility] [id number] [facility] 2019-01-14 13:07:00 2019-01-14 13:07:00 Registered Clinic 3 [facility] [id number] [facility] 2018-12-10 08:30:00 2018-12-10 08:30:00 Appointment; NELSON NG M.D. MELTON, DANIELLE, M.D. U[facility] [id number] [facility] 2018-11-11 07:14:2018-11-11 12:00:00 Departed Emergency Room 1 LUZ MARINA CURRIE [facility] [id number] [facility] 2018-10-31 03:34:00 2018-11-08 11:44:00 Discharged Inpatient 1 BEV FLORES [facility] [id number] [facility] 2018-10-17 02:37:00 2018-10-29 10:57:00 Discharged Inpatient 1 ABHIJIT YODER [facility] [id number] [facility] 2018-06-20 18:21:00 2018-06-27 15:47:00 Discharged Inpatient [facility] [id number] [facility] 2018-06-11 09:00:00 2018-06-11 09:00:00 Appointment; NELSON NG M.D. MELTON, DANIELLE, M.D. [facility] UTP [id number] [facility] 2018-05-04 01:45:00 2018-05-07 17:46:00 Discharged Inpatient 1 ADRIEL HADDAD [facility] [id number] [facility] 2018-02-12 12:00:00 2018-02-12 12:00:00 Appointment; NELSON NG M.D. MELTON, DANIELLE, M.D. [facility] UTP [id number] [facility] 2018-01-06 15:15:00 2018-01-06 15:15:00 Appointment; NELSON NG M.D. MELTON, DANIELLE, M.D. [facility] UTP [id number] [facility] 2017-12-11 11:30:00 2017-12-11 11:30:00 Appointment; NELSON NG M.D. MELTON, DANIELLE, M.D. [facility] UTP [id number] [facility] 2017-11-13 11:45:00 2017-11-13 11:45:00 Appointment; NELSON NG M.D. MELTON, DANIELLE, M.D. [facility] UTP [id number] [facility] 2017-08-29 05:19:00 2017-09-01 12:03:00 Discharged Inpatient 1 MARIELLE MARSH [facility] [id number] [facility] 2017-08-07 11:00:00 2017-08-07 11:00:00 Appointment; NELSON NG M.D. MELTON, DANIELLE, M.D. [facility] UTP [id number] [facility] 2017-08-07 08:30:00 2017-08-07 08:30:00 Appointment; NELSON NG M.D. MELTON, DANIELLE, M.D. [facility] UTP [id number] [facility] 2017-06-02 13:15:00 2017-06-02 13:15:00 Appointment; NELSON NG M.D. MELTON, DANIELLE, M.D. [facility] UTP [id number] [facility] 2017-05-08 11:15:00 2017-05-08 11:15:00 Appointment; NELSON NG M.D. MELTON, DANIELLE, M.D. [facility] UTP [id number] [facility] 2017-02-25 10:00:00 2017-02-25 10:00:00 Appointment; NELSON NG M.D. MELTON, DANIELLE, M.D. [facility] UTP [id number] [facility] 2017-01-25 02:48:00 2017-01-30 17:07:00 Discharged Inpatient [place] [facility] [id number] [facility] 2017-01-07 14:15:00 2017-01-07 14:15:00 Appointment; NELSON NG M.D. MELTON, DANIELLE, M.D. [facility] UTP [id number] [facility] Results Test Description Test Time Test Comments Results Result Comments Source AFB culture 2019-09-26 12:13:10 Test Item AFB culture isolate (test code = 543-9) No growth after 6 we eks of incubation. Specimen InformationSpecimen Source: Specimen Site: [place] MethodistFungus [id number] 12:15:05* Test Item Value Reference Range Interpretation Comments Fungus culture isolate (test code = 1441) No growth af ter 4 weeks of incubation. Specimen Information Specimen Source: Specimen Site: Ottoniel AriasECG 12 [id number] 14:50:41* Test Item Value Reference Range Interpretation Comments Ventricular rate (test code = 253) 99 Atrial rate (test code = 255) 99 AK interval (test code = 266) 106 QRSD interval (test code = 260) 92 QT interval (test code = 264) 370 QTC interval (test code = 265) 474 P axis 1 (test code = 267) 26 QRS axis 1 (test code = 268) 1 T wave axis (test code = 270) 75 EKG impression (test code = 273) Sinus rhythm with lina rt AK-Cannot rule out Inferior infarct , age undetermined-Abnormal ECG-In automated comparison with ECG of 08-APR-2017 16:07,-AK interval has decreased-Questionable change in QRS axis-ST no longer elevated in Inferior leads-T wave amplitude has decreased in Inferior leads-Nonspecific T wave abnormality now evident in Lateral leads-QT has lengthened- Allen MethodistAnaerobic [id number] 12:59:54* Test Item Value Reference Range Interpretation Comments Anaerobic culture isolate (test code = 552) No anaerobic organis ms isolated. Specimen InformationSpecimen Source: Spe cimen Site: [facility] MethodistAFB [id number] 12:59:54* Test Item Value Reference Range Interpretation Comments AFB stain (test code = 676-7) No acid fast bacilli (AFB) seen. Specimen InformationSpecimen Source: Specimen Site: [place] MethodistFungus [id number] 12:59:54* Test Item Value Reference Range Interpretation Comments Fungus smear (test code = 1443) No fungi observed. Specimen InformationSpecimen Source: Specimen Site: [place] MethodistGram [id number] 12:59:54Gram stain isolateMany WBC'sNo organisms seen Comment: Specimen InformationSpecimen Source: Specimen Site: [facility] MethodistAerobic [id number] 12:59:54 Aerobic culture isolateNo growth after 3 days.No growth after 4 days. Comment: S pecimen InformationSpecimen Source: Specimen Site: [place] [facility] MethodistBlood culture, aerobic & gxosnygxq6918-04-43 08:03:04* Test Item Value Reference Range Interpretation Comments Blood culture isolate (test code = 600-7) No growth after 5 days of incubation. Specimen InformationSpecimen Source: BloodSpecimen Site: Unspecified [place] [facility] [id number] 07:25:34* Test Item Value Reference Range Interpretation Comments Urine culture isolate (test code = 15465-8) No growth after 24 hour s Specimen InformationSpecimen Source: UrineSpecimen Site: Catheterized [place] [facility] [id number] 12:22:21* Test Item Value Reference Range Interpretation Comments POC glucose (test code = 21634-3) 145 mg/dL 65-99 H Energy Consultant Name: Cheng Mattiechristian Anna ID: [id number]: [facility] 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 Interpretation (test code = 37171-0) Abnormal [place] MethodistUrinalysis screen and microscopy, with reflex to culture 2019-08-18 22:55:10* Test Item Value Reference Range Interpretation Comments Specimen site (test code = 0936695) Catheterized Color, UA (test code = 5778-6) Straw Appearance, UA (test code = 5767-9) Hazy Specific gravity, UA (test code = 5811-5) 1.012 1.001-1.035 pH, UA (test code = 5803-2) 5.0 5.0-8.5 Protein, UA (test code = 76331-7) 1+ Negative A Glucose, UA (test code = 66290-8) 2+ Negative A Ketones, UA (test code = 2514-8) Negative Negative Bilirubin, UA (test code = 5770-3) Negative Negative Blood, UA (test code = 5794-3) Moderate Negative A Nitrite, UA (test code = 5802-4) Negative Negative Urobilinogen, UA (test code = 17446-1) <2.0 <2.0 Leukocyte esterase, UA (test code = 5799-2) Small Negative A WBC, UA (test code = 5821-4) 25 0- 1 /HPF H RBC, UA (test code = 60439-3) 4 0- 5 /HPF Bacteria, UA (test code = 05129-2) Few None seen Yeast, UA (test code = 34317-0) None seen Yeast with pseudohyphae, UA (test code = 48882-2) None seen Lab Interpretation (test code = 75860-7) Abnormal [place] MethodistCOVID-19 qualitative [id number] 12:12:15* Test Item Value Reference Range Interpretation Comments Interpretation (test code = 0185626) Negative results do not preclude 2019-nCoV infection and should not be used as the sole basis for treatment or other patient management decisions. Negative results must be combined with clinical observations, patient history, and epidemiological information. COVID-19 qualitative PCR result (test code = 52208-2) Not-Detect ed Not-Detected COVID-19 qualitative PCR (test code = 7070) See link below for P DF Lab Report [place] MethodistHepatitis B surface [id number] 08:10:47* Test Item Value Reference Range Interpretation Comments Hepatitis B surface Ag (test code = 5195-3) Non-reactive Non-reacti ve [place] MethodistBasic metabolic sogqt9904-06-17 10:17:32* Test Item Value Reference Range Interpretation Comments Sodium (test code = 2951-2) 139 135- 148 mEq/L Potassium (test code = 2823-3) 4.4 3.5- 5.0 mEq/L Chloride (test code = 2075-0) 101 98- 112 mEq/L CO2 (test code = 2027-9) 23 24- 31 mEq/L L Anion gap (test code = 73902-7) 15@ANIO 7- 15 mEq/L BUN (test code = 3094-0) 36 mg/dL 6-20 H Creatinine (test code = 2160-0) 5.25 mg/dL 0.7-1.2 H Glucose (test code = 2345-7) 146 mg/dL 65-99 H Calcium (test code = 93130-7) 8.2 mg/dL 8.3-10.2 L Lab Interpretation (test code = 15777-6) Abnormal [place] MethodistEstimated [id number] 10:17:32* Test Item Value Reference Range Interpretation Comments Estimated GFR (test code = 5488) 13 mL/min/1.73 m2 A Catergory Units InterpretationG1 >=90 Normal or highG2 60-89 Mildly ihfpxotqvC8e 45-59 Mildly to moderately octsnelxoZ3r 30-44 Moderately to severely decreasedG4 15-29 Severely decreasedG5 <15 Kidney failureThe eGFR was calculated using the Chronic Kidney Disease Epidemiology Collaboration (CKD-EPI) equation. Interpretation is based on recommendations of the National Kidney Foundation-Kidney Disease Outcomes Quality Initiative (NKF-KDOQI) published in 2014. Lab Interpretation (test code = 99863-4) Abnormal [place] MethodistHemoglobin [id number] 09:05:15* Test Item Value Reference Range Interpretation Comments Hemoglobin A1C (test code = 90327-2) 6.5 % 4-5.6 H HbA1c cutoffs for diagnosing diabetes:4.0% - 5.6% = normal5.7% - 6.4% = increased risk for diabetes (prediabetes)9>=6.5% = avlvfsir3Ebbet for glycemic control (ADA 2016)< 7.0% Target for non adults with diabetes. More or less stringent targets may be appropriate for individual patients. <7.5% Target for Children and adolescents with type 1 diabetes. Lab Interpretation (test code = 78151-4) Abnormal [place] MethodistCBC with platelet and abzflekotfjh2297-63-02 07:41:09* Test Item Value Reference Range Interpretation Comments WBC (test code = 45731-5) 3.73 4.50- 11.00 k/uL L RBC (test code = 68903-1) 4.16 m/uL 4.4-6 L HGB (test code = 718-7) 10.1 g/dL 14-18 L HCT (test code = 4544-3) 34.5 % 41-51 L MCV (test code = 787-2) 82.9 fL 82-100 MCH (test code = 785-6) 24.3 pg 27-34 L MCHC (test code = 786-4) 29.3 g/dL 31-37 L RDW - SD (test code = 51170-8) 42.0 fL 37-55 MPV (test code = 64748-8) 8.5 fL 8.8-13.2 L Platelet count (test code = 16545-1) 190 150- 400 k/uL Nucleated RBC (test code = 51638-1) 0.00 /100 WBC Neutrophils (test code = 18702-5) 56.8 % 39-69 Lymphocytes (test code = 56081-1) 30.3 % 25-45 Monocytes (test code = 88113-5) 7.5 % 0-10 Eosinophils (test code = 57354-8) 3.5 % 0-5 Basophils (test code = 01041-2) 0.3 % 0-1 Immature granulocytes (test code = 25842-0) 1.6 % 0-1 H "Immature granulocytes" (promyelocytes, myelocytes, metamyelocytes) Lab Interpretation (test code = 43410-3) Abnormal [place] MethodistCell count and differential, body [id number] 21:07:29* Test Item Value Reference Range Interpretation Comments Misc fluid type (test code = 13238-7) Synovial Color, fluid (test code = 6824-7) Red Appearance, fluid (test code = 9335-1) Hazy RBC, fluid (test code = 79230-1) 41656 /CMM Nucleated cells, fluid (test code = 49784-6) 16189 /CMM Fluid mononuclear cell (test code = 1407) See Diff Neutrophils, fluid (test code = 25649-2) 89 % Lymphocytes, fluid (test code = 64925-8) 2 % Macrophages, fluid (test code = 29964-4) 9 % [place] MethodistCrystal [id number] 19:50:35* Test Item Value Reference Range Interpretation Comments Crystal analysis specimen type (test code = 1160) Knee Right knee joint aspirate Monosodium urate (test code = 5601672) None seen None seen CPPD crystals (test code = 1135) None seen None seen [place] MethodistSedimentation [id number] 17:40:51* Test Item Value Reference Range Interpretation Comments Sedimentation rate (test code = 46580-1) 87 0- 10 mm/hr H Lab Interpretation (test code = 59288-6) Abnormal [place] MethodistC-reactive [id number] 17:13:47* Test Item Value Reference Range Interpretation Comments CRP (test code = 1987-5) 5.40 mg/dL 0-0.5 H Lab Interpretation (test code = 97354-1) Abnormal [place] MethodistComprehensive metabolic [id number] 17:13:46* Test Item Value Reference Range Interpretation Comments Sodium (test code = 2951-2) 138 135- 148 mEq/L Potassium (test code = 2823-3) 4.2 3.5- 5.0 mEq/L Chloride (test code = 2075-0) 102 98- 112 mEq/L CO2 (test code = 2027-9) 24 24- 31 mEq/L Anion gap (test code = 72391-0) 12@ANIO 7- 15 mEq/L BUN (test code = 3094-0) 35 mg/dL 6-20 H Creatinine (test code = 2160-0) 5.44 mg/dL 0.7-1.2 H Glucose (test code = 2345-7) 233 mg/dL 65-99 H Calcium (test code = 02449-2) 8.1 mg/dL 8.3-10.2 L Protein (test code = 2885-2) 7.3 g/dL 6.3-8.3 - 4.6- 7.0 g/dL1 week 4.4-7.6 g/dL7 months-1year 5.1-7.3 g/dL1-2 years 5.6-7.5 g/dL>3 years 6.0-8.0 g/eJ14-543 6.3-8.3 g/dL Albumin (test code = 1751-7) 1.9 g/dL 3.5-5 L A/G ratio (test code = 1759-0) 0.4 0.7-3.8 L Alkaline phosphatase (test code = 6768-6) 216 U/L 40-129 H AST (test code = 1920-8) 14 U/L 10-50 ALT (test code = 1742-6) 13 U/L 5-50 Total bilirubin (test code = 1974-2) <0.2 0-1.2 Lab Interpretation (test code = 07778-4) Abnormal [place] MethodistPartial thromboplastin time, [id number] 16:44:57* Test Item Value Reference Range Interpretation Comments PTT (test code = 01142-6) 35.3 23.0- 36.0 sec PTT therapeutic range for unfractionated heparin is61.0-112.0 seconds which corresponds to Anti-Xa0.3-0.7 U/ml. [place] MethodistProthrombin time with [id number] 16:41:55* Test Item Value Reference Range Interpretation Comments Prothrombin time (test code = 5902-2) 16.0 11.5- 14.5 sec H INR (test code = 52471-1) 1.3 Th e International Normalized Ratio (INR) is a therapeutic monitoring tool for patients who are stable on oral anticoagulant therapy. An INR of 2.0-3.0 is suggested for deep vein thrombosis/pulmonary embolism. Lab Interpretation (test code = 27059-2) Abnormal [place] MethodistXR Knee 4+ Vw [id number] 14:44:09Hm Interface, Radiology Results - 08/14/2019 2:47 PM CDTEXAMINATION: XR KNEE 4 VW RIGHTCLINICAL HISTORY: Knee pain initial examCOMPARISON: 018IMPRESSION:1.Right knee revision total arthroplasty again noted with new exte nsive sclerotic and expansile appearance of the distal femur around the femoral metal shaft component. Although findings may be related to chronic reactive agosto ges, complication such as chronic osteomyelitis cannot be fully excluded and lina uld be correlated.2.Distal tibial component and patellar component appear intact . No loosening noted.[facility] MethodistCapillary blood glucose measurement by glucometer (mass/volume)2019-08-10 10:38:00* Test Item Value Reference Range Interpretation Comments Bedside Glucose (test code = 84289-2) 170 70-120 Meter ID: [id number] [facility] [id number] 16:27:00 [facility] [address] [address] Patient Name: MANJIT LUO MR #: [id number] : 1980 Age/Sex: 39/M Req #: [id number] Adm Physician: ABHIJIT YODER MD Ordered by: FAIZA DOWNEY PA Report #: [id number] Location: MED/SURG3 Room/Bed: 295-1 Procedure: DX/IR CONS ULT Exam Date: Exam Time: REPORT STATUS: Signed PROCEDURE: Tunneled central venous catheter removal Procedural Personnel Attending physician(s): Raj Fellow physician(s): None Resident physician(s): None Advanced practice prov ider(s): None Pre-procedure diagnosis: Infection Post-procedure diagnosis : Same Indication: Catheter no longer needed Additional clinical history: No ne Complications: No immediate complications. IMPRESSION: Removal of left-sided tunneled central venous catheter. Plan: Please re-cons ult interventional radiology if new catheter placement is desired. PROCEDURE SUMMARY: - Tunneled central venous catheter removal - Additional procedure(s): None PROCEDURE DETAILS: Pre-procedure Consent: Informed consent for the pro cedure including risks, benefits and alternatives was obtained and time-out wa s performed prior to the procedure. Preparation: The site was prepared and anay ped using maximal sterile barrier technique including cutaneous antisepsis. Anesthesia/sedation Level of anesthesia/sedation: No sedation Anesthesia/ sedation administered by: Not applicable Catheter removal Local anesthesi a was administered. The catheter was removed with a combination of traction an d blunt dissection. Closure Hemostasis was achieved with manual compressi on. Sterile dressing(s) applied. Contrast Contrast agent: None None Radiation Dose Fluoroscopy time (minutes): 0.0 Reference air kerma (mGy): 0.1 Additional Details Additional description of procedure: None Equ ipment details: None Specimens removed: Tunneled central venous catheter. E stimated blood loss (mL): Less than 10 Standardized report: SIR_TunneledCathet erRemoval_v3 Attestation Signer name: Jose F Ferrer MD I attest that I wa s present for the entire procedure. I reviewed the stored images and agree wit h the report as written. Signed by: Jose F Ferrer MD on 08/09/2019 4:29 PM Dictated By: JOSE F FERRER MD 28 COPY TO: LORE DOWNEY REMOVAL TUNNEDLED CV [id number] 16:27:00 [address] [address] Patient Name: MANJIT LUO MR #: [id number] : 1980 Age/Sex: 39/M Req #: [id number] Adm Physician: ABHIJIT YODER MD Ordered by: FAIZA DOWNEY Report #: [id number] Location: MED/SURG3 Room/Bed: [facility] Procedure: IR/REMOVAL TUNNEDLED CV CATH Exam Date: Exam Time: REPORT STATUS: Signed PROCEDURE: Tunneled central venous catheter removal Procedural Personnel Attending physician (s): Raj Fellow physician(s): None Resident physician(s): None Advance d practice provider(s): None Pre-procedure diagnosis: Infection Post-proc edure diagnosis: Same Indication: Catheter no longer needed Additional clini tricia history: None Complications: No immediate complications. IMPRESSIO N: Removal of left-sided tunneled central venous catheter. Plan: Please re-consult interventional radiology if new catheter placement is niru ed. PROCE DURE SUMMARY: - Tunneled central venous catheter removal - Additional proced ure(s): None PROCEDURE DETAILS: Pre-procedure Consent: Informed cons ent for the procedure including risks, benefits and alternatives was obtained and time-out was performed prior to the procedure. Preparation: The site was p repared and draped using maximal sterile barrier technique including cutaneous antisepsis. Anesthesia/sedation Level of anesthesia/sedation: No sedation Anesthesia/sedation administered by: Not applicable Catheter removal Local anesthesia was administered. The catheter was removed with a combination of traction and blunt dissection. Closure Hemostasis was achieved with m anual compression. Sterile dressing(s) applied. Contrast Contrast agent: None None Radiation Dose Fluoroscopy time (minutes): 0.0 Reference air kerma (mGy): 0.1 Additional Details Additional description of proced ure: None Equipment details: None Specimens removed: Tunneled central venous catheter. Estimated blood loss (mL): Less than 10 Standardized report: SIR _TunneledCatheterRemoval_v3 Attestation Signer name: Jose F Ferrer MD I a ttest that I was present for the entire procedure. I reviewed the stored image s and agree with the report as written. Signed by: Jose F Ferrer MD on 020 4:29 PM Dictated By: JOSE F FERRER MD 28 Transcribed By: TIFFANY on 08/09/191628 COPY TO: FAIZA DOWNEY KNEE RIGHT THREE [id number] 14:06:00 [place] [address] Patient Name: MANJIT LUO MR #: [id number] : 1980 Age/Sex: 39/M Req #: [id number] Adm Physician: ABHIJIT YODER MD Ordered by: ABHIJIT YODER MD Report #: [id number] Location: MED/SURG3 Room/Bed: [facility] Procedure: [id number] DX/KNEE RIGHT TH REE VIEWS Exam Date: 08/09/19 Exam Time: 1135 REPORT STATUS: Signed EXAMINATION: KN EE RIGHT THREE VIEWS INDICATION: Knee pain COMPARISON: None FINDINGS: The patient is status post right total knee replacement. Exte nsive posttraumatic changes of the right knee related to old healed fractures. Lucency surrounding the stem of the femoral component of the prosthesis. In t he absence of prior radiographs for comparison, it is difficult to ascertain whether this represents a component of hardware loosening. No acute fracture. Suprapatellar joint effusion is present. IMPRESSION: Posterior medical and postoperative findings of the right knee. No acute displaced fracture. Poli ency surrounding the stem of the femoral component of the prosthesis. In the a bsence of prior radiographs for comparison, it is difficult to ascertain wheth er this represents a component of hardware loosening. Suprapatellar join t effusion. Signed by: Jose F Ferrer MD on 08/09/2019 2:09 PM Dictated By: JOSE F FERRER MD 140 Tra nscribed By: TIFFANY on 08/09/19 140 COPY TO: ABHIJIT YODER MD Serum or plasma sodium measurement (moles/volume)2019-08-09 05:45:00* Test Item Value Reference Range Interpretation Comments Sodium Level (test code = 2951-2) 136 136-[address] [facility] potassium measurement (moles/volume)2019-08-09 05:45:00* Test Item Value Reference Range Interpretation Comments Potassium Level (test code = 2823-3) 4.1 3.5-5.[address] [facility] chloride measurement (moles/volume)2019-08-09 05:45:00* Test Item Value Reference Range Interpretation Comments Chloride Level (test code = 2075-0) 100 98-[address] [facility] carbon dioxide, total measurement (moles/volume)2019-08-09 05:45:00* Test Item Value Reference Range Interpretation Comments Carbon Dioxide Level (test code = 2028-9) 25 22-[address] [facility] anion vhg6915-82-87 05:45:00* Test Item Value Reference Range Interpretation Comments Anion Gap (test code = 01035-4) 15.1 8-[address] [facility] urea nitrogen measurement (mass/volume)2019-08-09 05:45:00* Test Item Value Reference Range Interpretation Comments Blood Urea Nitrogen (test code = 3094-0) 37 7-[address] [facility] plasma creatinine measurement (mass/volume)2019-08-09 05:45:00* Test Item Value Reference Range Interpretation Comments Creatinine (test code = 2160-0) 6.05 0.72-1.[address] [facility] urea nitrogen/creatinine mass idmwo0237-52-87 05:45:00* Test Item Value Reference Range Interpretation Comments BUN/Creatinine Ratio (test code = 3097-3) 6 6-25 [facility]Estim[facility] glomerular filtration rate (GFR) gwifwkojjxrfk1625-37-59 05:45:00* Test Item Value Reference Range Interpretation Comments Estimat Glomerular Filtration Rate (test code = 754443612) 10 >60 Ranges were taken from the National Kidney Disease Education Program and the [facility] [employer] literature.Reference ranges:60 or greater: Xipepe66-33 ( for 3 consecutive months): Chronic kidney disease 15 or less: Kidney failureMethodist Hospital NortheastGlucose vxavfoojghr5770-59-91 05:45:00* Test Item Value Reference Range Interpretation Comments Glucose Level (test code = ZMW0287) 115 74-[address] [facility] plasma calcium measurement (mass/volume)2019-08-09 05:45:00* Test Item Value Reference Range Interpretation Comments Calcium Level (test code = 69432-9) 7.4 8.4-10.2 [facility] NortheastPhosphorus rtyspxaxsnb2712-64-73 05:45:00 * Test Item Value Reference Range Interpretation Comments Phosphorus Level (test code = PWF7808) 5.2 2.3-4.[address] [facility] albumin measurement (mass/volume)2019-08-09 05:45:00* Test Item Value Reference Range Interpretation Comments Albumin (test code = 1751-7) 1.7 3.5-5.[address] [facility] plasma intact pararthyroid hormone measurement (mass/volume)2019-08-09 05:45:00* Test Item Value Reference Range Interpretation Comments Parathyroid Hormone (test code = 2731-8) 198 15-[address] [facility] plasma calcium measurement (mass/volume)2019-08-09 05:45:00* Test Item Value Reference Range Interpretation Comments Calcium (Send out) (test code = 57263-4) 7.0 8.7-10.2 [facility] NortheastFluoroscopic procedure less than one hour njbdqszs6431-38-16 05:45:00* Test Item Value Reference Range Interpretation Comments Parathyroid Hormone Interpretation (test code = Parathyroid Hormone Interpretation) Comment . Interpretation Intact PTH Calcium (pg/mL) (mg/dL)Normal 15 - 65 8.6 - 10.2Pr imary Hyperparathyroidism >65 >10.2Secondary Hyperparathyroidism >65 <10.2Non-Parathyroid Hypercalcemia <65 >10.2Hypoparathyroidism <15 < 8.6Non- Parathyroid Hypocalcemia 15 - 65 < 8.6Performed at: - [facility] [address] [id number] Director: Doc Bartlett MD, Phone: [phone] at: - [facility] [id number] Director: Raul Bolivar MD, Phone: [phone] Hospital NortheastBacterial urine hluzolp1674-80-72 09:57:00* Test Item Value Reference Range Interpretation Comments Urine Culture (test code = 630-4) ENTEROCOCCUS FAECALIS [facility] NortheastBlood leukocytes automated count (number/volume)2019-08-08 05:30:00* Test Item Value Reference Range Interpretation Comments White Blood Count (test code = 6690-2) 4.79 4.8-10.8 [facility]Blood erythrocytes automated count (number/volume)2019-08-08 05:30:00* Test Item Value Reference Range Interpretation Comments Red Blood Count (test code = 789-8) 3.83 4.3-5.7 [facility] NortheastBlood hemoglobin measurement (moles/volume)2019-08-08 05:30:00* Test Item Value Reference Range Interpretation Comments Hemoglobin (test code = 19603-8) 9.8 14.0-18.0 [facility] NortheastAutomated blood hematocrit (volume fraction)2019-08-08 05:30:00* Test Item Value Reference Range Interpretation Comments Hematocrit (test code = 4544-3) 30.8 38.2-49.6 [facility] NortheastAutomated erythrocyte mean corpuscular vlftbg1431-64-00 05:30:00* Test Item Value Reference Range Interpretation Comments Mean Corpuscular Volume (test code = 787-2) 80.4 81-99 [facility] NortheastAutomated erythrocyte mean corpuscular hemoglobin (mass per erythrocyte)2019-08-08 05:30:00* Test Item Value Reference Range Interpretation Comments Mean Corpuscular Hemoglobin (test code = 785-6) 25.6 28-32 [facility] NortheastAutomated erythrocyte mean corpuscular hemoglobin concentration measurement (mass/volume)2019-08-08 05:30:00* Test Item Value Reference Range Interpretation Comments Mean Corpuscular Hemoglobin Concent (test code = 786-4) 31.8 31-35 [facility] NortheastRDW FjtQe-Chq9056-78-15 05:30:00* Test Item Value Reference Range Interpretation Comments Red Cell Distribution Width (test code = 55109-9) 15.1 11.7 -14.4 [facility] NortheastAutomated blood platelet count (count/volume)2019-08-08 05:30:00* Test Item Value Reference Range Interpretation Comments Platelet Count (test code = 777-3) 143 140-360 [facility] count as percentage of total cedielwebn8979-77-48 05:30:00* Test Item Value Reference Range Interpretation Comments Neutrophils (%) (Auto) (test code = 06273-5) 58.9 38.7-80.0 [facility] NortheastAutomated blood lymphocyte count as percentage ot total dmrpplpfdm4150-07-48 05:30:00* Test Item Value Reference Range Interpretation Comments Lymphocytes (%) (Auto) (test code = 736-9) 25.5 18.0-39.1 [facility] NortheastAutomated blood monocyte count as percentage of total mheszqnyqg7561-54-64 05:30:00* Test Item Value Reference Range Interpretation Comments Monocytes (%) (Auto) (test code = 5905-5) 11.9 4.4-11.3 [facility] NortheastAutomated blood eosinophil count as percentage of total xskwlcixsy1088-84-48 05:30:00* Test Item Value Reference Range Interpretation Comments Eosinophils (%) (Auto) (test code = 713-8) 2.7 0.0-6.0 [facility] NortheastAutomated blood basophil count as percentage of total aliiwxvjyn3736-62-53 05:30:00* Test Item Value Reference Range Interpretation Comments Basophils (%) (Auto) (test code = 706-2) 0.6 0.0-1.0 [facility] NortheastFluoroscopic procedure less than one hour hfzvmhob3265-92-56 05:30:00* Test Item Value Reference Range Interpretation Comments IM GRANULOCYTES % (test code = IM GRANULOCYTES %) 0.4 0.0- 1.0 [facility] NortheastAutomated blood neutrophil count 2019-08-08 05:30:00* Test Item Value Reference Range Interpretation Comments Neutrophils # (Auto) (test code = 751-8) 2.8 2.1-6.9 [facility] NortheastBlood lymphocytes count (number/volume) 2019-08-08 05:30:00* Test Item Value Reference Range Interpretation Comments Lymphocytes # (Auto) (test code = 31868-2) 1.2 1.0-3.2 [facility] NortheastBlood monocytes automated count (number/volume)2019-08-08 05:30:00* Test Item Value Reference Range Interpretation Comments Monocytes # (Auto) (test code = 742-7) 0.6 0.2-0.8 [facility] NortheastAutomated blood eosinophil count 2019-08-08 05:30:00* Test Item Value Reference Range Interpretation Comments Eosinophils # (Auto) (test code = 711-2) 0.1 0.0-0.4 [facility] NortheastAutomated blood basophil count (count/volume)2019-08-08 05:30:00* Test Item Value Reference Range Interpretation Comments Basophils # (Auto) (test code = 704-7) 0.0 0.0-0.1 [facility] NortheastFluoroscopic procedure less than one hour wvytvfob4493-05-47 05:30:00* Test Item Value Reference Range Interpretation Comments Absolute Immature Granulocyte (auto (shin t code = Absolute Immature Granulocyte (auto) 0.02 0-0.1 [facility] NortheastProthrombin time (PT) in platelet poor plasma by coagulation sfohm7647-30-27 09:05:00* Test Item Value Reference Range Interpretation Comments Prothrombin Time (test code = 5902-2) 15.8 11.9-14.5 [facility] NortheastINR in Platelet poor plasma by Coagulation eskxq0182-44-14 09:05:00* Test Item Value Reference Range Interpretation Comments Prothromb Time International Ratio (test code = 6301-6) 1.18 Oral Anticoagulant Therapy INR Values:1. Low Intensity Therapy 1.5 - 2.02 . Moderate Intensity Therapy 2.0 - 3.03. High Intensity Therapy(1) 2.5 - 3. 54. High Intensity Therapy(2) 3.0 - 4.05. Panic Value INR > 5.0 [facility] NortheastActivated partial thromboplastin time (aPTT) in platelet poor plasma by coagulation phcbd8109-18-96 09:05:00* Test Item Value Reference Range Interpretation Comments Activated Partial Thromboplast Time (test code = 43056-9) 39.3 23.8-35.[address] [facility] plasma total bilirubin measurement (mass/volume)2019-08-05 09:05:00* Test Item Value Reference Range Interpretation Comments Total Bilirubin (test code = 1975-2) 0.4 0.2-1.2 [facility] NortheastFluoroscopic procedure less than one hour mxdodlgz0707-96-29 09:05:00* Test Item Value Reference Range Interpretation Comments Aspartate Amino Transf (AST/SGOT) (test code = Aspartate Amino Transf (AST/SGOT)) 18 5-[address] [facility]er[facility] or plasma alanine aminotransferase measurement (enzymatic activity/volume)2019-08-05 09:05:00* Test Item Value Reference Range Interpretation Comments Alanine Aminotransferase (ALT/SGPT) (test code = 1742-6) 14 0-[address] [facility]er[facility] or plasma protein measurement (mass/volume)2019-08-05 09:05:00* Test Item Value Reference Range Interpretation Comments Total Protein (test code = 2885-2) 6.7 6.5-8.1 [facility] NortheastPlasma globulin measurement (mass/volume) 2019-08-05 09:05:00* Test Item Value Reference Range Interpretation Comments Globulin (test code = 98794-1) 4.5 2.3-3.[address] [facility]er[facility] or plasma albumin/globulin mass caqfg6503-30-22 09:05:00* Test Item Value Reference Range Interpretation Comments Albumin/Globulin Ratio (test code = 1759-0) 0.5 0.8-2.[address] [facility] plasma alkaline phosphatase measurement (enzymatic activity/volume)2019-08-05 09:05:00* Test Item Value Reference Range Interpretation Comments Alkaline Phosphatase (test code = 6768-6) 186 40-[address] [facility]er[facility] or plasma creatine kinase measurement (enzymatic activity/volume)2019-08-05 09:05:00* Test Item Value Reference Range Interpretation Comments Creatine Kinase (test code = 2157-6) 64 30-[address] [facility]er[facility] or plasma creatine kinase MB measurement (mass/volume)2019-08-05 09:05:00* Test Item Value Reference Range Interpretation Comments Creatine Kinase MB (test code = 60734-4) 1.20 0-5.0 [facility] NortheastTroponin I measurement by highly sensitive enzyme xrribahxdha0434-44-39 09:05:00* Test Item Value Reference Range Interpretation Comments Troponin I (test code = 50541-6) 0.034 0-0.300 [facility] NortheastBlood ujyjtnz2313-78-12 23:15:00* Test Item Value Reference Range Interpretation Comments Blood Culture (test code = 82024524) NO GROWTH AFTER 5 DAYS, FINAL REPORT [facility] NortheastCHEST SINGLE (PORTABLE)2019-08-04 23:03:00 [facility] [address] [place] [address] Patient Name: MANJIT LUO MR #: [id number] : 1980 Age/Sex: 39/M Req #: [id number] Adm Physician: Ordered by: MARIELLE MARSH MD Report #: [id number] Location: ER Room/Bed: Procedure: [id number] DX/NERISSA ST SINGLE (PORTABLE) Exam Date: 08/04/19 Exam Time: [...] focal consolidation. PLEURA: No pleural effusion or pneum othorax. HEART AND MEDIASTINUM: The cardiomediastinal silhouette is unrema rkable. BONES AND SOFT TISSUES: No acute osseous lesion. Soft tissues are unremarkable. UPPER ABDOMEN: No free air under the diaphragm. IMPRESSION: Mild central peribronchial cuffing. No definite focal conso lidations. Signed by: Dr. Dona Wesley MD on 08/04/2019 11:05 PM Dictated By: DONA WESLEY MD 04 COPY TO: MARIELLE PERSON MD CT ABDOMEN/PELVIS [id number] 22:15:00 [place] [address] Patient Name: MANJIT LUO MR #: [id number] : 1980 Age/Sex: 39/M Req #: [id number] Adm Physician: Ordered by: MARIELLE MARSH MD Report #: [id number] Location: ER Room/Bed: Procedure: CT/CT ABDOMEN/PELVIS WO Exam Date: 08/04/19 Exam Time: 220 5 REPORT STATUS: Signed EXAM: CT Abdomen and Pelvis WITHOUT contrast INDICATION: FEVER, ABD PAIN, P ERITONEAL DIAYLYSIS [id number] COMPARISON: CT dated 05/30/2019 TECHNIQUE: Abdomen and pelvis were scanned utilizing a multidetector helical s canner from the lung base to the pubic [...] Protocol Committee (RPC). FINDINGS: LINES and TUBES: Supra pubic Barcenas catheter. Dialysis catheter with tip coiled in the pelvis. LO WER THORAX: Unremarkable HEPATOBILIARY: Unenhanced liver is unremarkable. No biliary ductal dilation. GALLBLADDER: Surgically absent. SPLEEN: Splenomegaly. 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 Pancreatic ductal dilatation u p to 7 mm. ADRENALS: No adrenal nodules KIDNEYS/URETERS: Right nep hrectomy. Soft tissue thickening or complex collection in the surgical bed, me asuring 2.4 x 1 cm (series 301, image 65). Moderately dilated left renal pelvi s as well as mild hydroureter. Limited for evaluation of renal parenchyma with out intravenous contrast. No left renal calculus. GI TRACT: No abnormal d istention or evidence of bowel obstruction. Unchanged lower rectal wall thick ening. Appendix is normal. PELVIC ORGANS/BLADDER: Again seen suprapubic Fo tere catheter in place with diffuse bladder wall thickening and perivesical fat stranding. LYMPH NODES: Right iliac chain and inguinal lymphadenopathy, ag ain seen. For example 1.8 cm right external iliac lymph node, previously 2.1 c m. VESSELS: Unremarkable. PERITONEUM / RETROPERITONEUM: No free air or fluid. BONES: Mottled iliac bones with increased sclerosis, could be due to renal osteodystrophy. Bilateral L5 pars defects without significant spondy lolisthesis. SOFT TISSUES: Right posterior flank subcutaneous fat stranding , likely postsurgical. IMPRESSION: 1. Limited study witho ut intravenous contrast. 2. Status post right nephrectomy. Soft tissue thicke charli versus phlegmonous material or a small hematoma in the right nephrectomy bed as described above. 3. No left nephrolithiasis. Moderately dilated left r enal pelvis and mild left hydroureter without evidence of obstructive urolithi asis. 4. Again seen bladder wall thickening, probably due to chronic cystitis . 5. Changes of chronic pancreatitis. 6. Again seen right inguinal and sandeep ac chain lymphadenopathy. 7. Splenomegaly. Signed by: Dr. Dona Wesley MD on 08/04/2019 10:32 PM Dictated By: DONA WESLEY MD Electronically S igned By: DONA WESLEY MD on 08/04/192231 Transcribed By: TIFFANY on 08/04/192231 COPY TO: MARIELLE MARSH MD Urine color determination 2019-08-04 22:13:00* Test Item Value Reference Range Interpretation Comments Urine Color (test code = 5778-6) YELLOW YELLOW [facility] NortheastU[facility] eevbjol3745-12-59 22:13:00* Test Item Value Reference Range Interpretation Comments Urine Clarity (test code = 81721-2) SL CLOUDY CLEAR [facility] Hospital[facility] gravity of Urine by Test strip 2019-08-04 22:13:00* Test Item Value Reference Range Interpretation Comments Urine Specific [place] (test code = 5811-5) 1.020 1.010-1.02 5 [facility] NortheastU[facility] pH measurement by automated test whwgy8995-91-75 22:13:00* Test Item Value Reference Range Interpretation Comments Urine pH (test code = 67861-4) 5.5 5-7 [facility] leukocyte esterase detection by mvfelkbx9798-88-49 22:13:00* Test Item Value Reference Range Interpretation Comments Urine Leukocyte Esterase (test code = 5799-2) SMALL NEGATIVE [facility] NortheastU[facility] nitrite rtxmnyjwh1840-16-62 22:13:00* Test Item Value Reference Range Interpretation Comments Urine Nitrite (test code = 58009-7) NEGATIVE NEGATIVE [facility] protein measurement by test strip (mass/volume)2019-08-04 22:13:00* Test Item Value Reference Range Interpretation Comments Urine Protein (test code = 5804-0) >=300 NEGATIVE [facility] glucose kfciasovl8224-41-46 22:13:00* Test Item Value Reference Range Interpretation Comments Urine Glucose (UA) (test code = 2349-9) 1+ NEGATIVE [facility] ketones detection by automated test buqye8437-85-62 22:13:00* Test Item Value Reference Range Interpretation Comments Urine Ketones (test code = 92167-3) NEGATIVE NEGATIVE [facility] NortheastU[facility] urobilinogen measurement by test strip (mass/volume)2019-08-04 22:13:00* Test Item Value Reference Range Interpretation Comments Urine Urobilinogen (test code = 15301-5) 0.2 0.2-1 [facility] total bilirubin measurement (mass/volume)2019-08-04 22:13:00* Test Item Value Reference Range Interpretation Comments Urine Bilirubin (test code = 1978-6) NEGATIVE NEGATIVE [facility] erythrocytes tcmxgcogl6789-09-82 22:13:00* Test Item Value Reference Range Interpretation Comments Urine Blood (test code = 39595-7) MODERATE NEGATIVE [facility] NortheastAutomated urine sediment leukocyte count by microscopy (number/high power field)2019-08-04 22:13:00* Test Item Value Reference Range Interpretation Comments Urine WBC (test code = 5821-4) >50 0-5 [facility] NortheastErythrocytes detection in urine sediment by light wtyuajpytx1495-41-06 22:13:00* Test Item Value Reference Range Interpretation Comments Urine RBC (test code = 96020-6) >50 0-5 [facility] NortheastBacteria detection in urine sediment by light hmmtmxoidj0813-85-57 22:13:00* Test Item Value Reference Range Interpretation Comments Urine Bacteria (test code = 23758-3) MANY NONE [facility] NortheastEpithelial cells detection in urine sediment by light ibatkrmsdw1942-66-59 22:13:00* Test Item Value Reference Range Interpretation Comments Urine Epithelial Cells (test code = 16357-5) MANY NONE [facility] urine hydukhx7089-91-60 22:13:00* Test Item Value Reference Range Interpretation Comments Urine Culture (test code = 630-4) ENTEROCOCCUS FAECALIS [facility] NortheastFluoroscopic procedure less than one hour rtsifimf9449-20-10 21:23:00* Test Item Value Reference Range Interpretation Comments Lactic Acid Level (test code = Lactic Acid Level) 1.8 0.5- 2.0 [facility] NortheastFluoroscopic procedure less than one hour dmbrfenk1177-65-43 00:10:00* Test Item Value Reference Range Interpretation Comments Coronavirus (PCR) (test code = Coronavirus (PCR)) NOT DETECTED NOTD ETECTED SARS-COV-2 (COVID19), HIGHRISK, RT-PCRNegative results do not preclude SARS-CoV- 2 infection and should not be used as the sole basis for patient management deci sions. Negative results must be combined with clinical observations, patient his tory, and epidemiological information. Optimum specimen types and timing for pea k viral levels during infections caused by SARS-CoV-2 have not been determined. Collection of multiple specimens ot types of specimens may be necessary to detec t virus. Improper specimen collection and handling, sequence variability under p rimers/probes, or organism present below the limit of detection may lead to fals e negative results. Positive and negative predictive values of testing are highl y dependent on prevalance. False negative test results are more likely when prev alence is high.The expected result is negative (not detected).The SARS-CoV-2 shin t is intended for the qualitative detection of nucleic acid from SARS-CoV-2 in n asopharyngeal and oropharyngeal swab samples from patients who meet COVID-19 cli nical and or epidemiological criteria. For lower respiratory tract specimens, th e assay is submitted for authoriztion by FDA under an Emergency Use Authorizatio n (EUA). Testing methodology is real time RT-PCR. If received as separate collec tion devices, nasopharygeal and oropharyngeal specimens are combined for analysi s. Additional specimens may be split to a separate accession for analysi and rep orting as this test includes a single unit of service.Test results must be corre lated with clinical presentation and evaluated in the context of other laborator y and epidemiologic data. Test performance can be affected because the epidemiol ogy and clinical spectrum of infection caused by SARS-CoV-2 is not fully known. For example, the optimum types of specimens to collect and when during the cours e of infection these specimens are most likely to contain detectable viral RNA m ay not be known.This test has not been Food and Drug Administration (FDA) cleare d or approved and has been authorized by FDA under an Emergency Use Authorizatio n (EUA). The test is only authorized for the duration of the declaration that ci rcumstances exist justifying the authorization of emergency use of in vitro diag nostic tests for detection and/or diagnosis of SARS-CoV-2 under section 564(b) o f the Act, 21 U.S.C. section 360bbb-3(b)(1), unless the authorization is termina jesus alberto or revoked sooner. [facility] are certified under the C linical Laboratory Improvement Amendments of 1988 (CLIA), 42 U.S.C. section 263a , to perform high complexity tests.Testing performed by [facility] [address] [phone] Director: Alonzo Rhodes M.D.CLIA # [id number] Capillary blood glucose measurement by glucometer (mass/volume)2019-06-22 19:22:00* Test Item Value Reference Range Interpretation Comments Bedside Glucose (test code = 03478-0) 328 70-[address]: [id number] [facility] Hospitaler[facility] or plasma sodium measurement (moles/volume)2019-06-22 05:05:00* Test Item Value Reference Range Interpretation Comments Sodium Level (test code = 2951-2) 135 136-145 [facility] ionized calcium measurement (mass/volume)2019-06-22 05:05:00* Test Item Value Reference Range Interpretation Comments Ionized Calcium (test code = 16104-7) 1.1 1.09-1.[address] [facility] potassium measurement (moles/volume)2019-06-22 05:05:00* Test Item Value Reference Range Interpretation Comments Potassium Level (test code = 2823-3) 4.5 3.5-5.[address] [facility] chloride measurement (moles/volume)2019-06-22 05:05:00* Test Item Value Reference Range Interpretation Comments Chloride Level (test code = 2075-0) 100 98-[address] [facility]er[facility] or plasma carbon dioxide, total measurement (moles/volume)2019-06-22 05:05:00* Test Item Value Reference Range Interpretation Comments Carbon Dioxide Level (test code = 2028-9) 30 22-[address] [facility]er[facility] or plasma anion flz7479-22-04 05:05:00* Test Item Value Reference Range Interpretation Comments Anion Gap (test code = 71363-1) 9.5 8-[address] [facility] plasma urea nitrogen measurement (mass/volume)2019-06-22 05:05:00* Test Item Value Reference Range Interpretation Comments Blood Urea Nitrogen (test code = 3094-0) 34 7-[address] [facility] plasma creatinine measurement (mass/volume)2019-06-22 05:05:00* Test Item Value Reference Range Interpretation Comments Creatinine (test code = 2160-0) 4.42 0.72-1.[address] [facility]er[facility] plasma urea nitrogen/creatinine mass zprbh4235-37-95 05:05:00* Test Item Value Reference Range Interpretation Comments BUN/Creatinine Ratio (test code = 3097-3) 8 6-25 [facility] NortheastEstimated glomerular filtration rate (GFR) rgrlixqtjgmfa5492-08-81 05:05:00* Test Item Value Reference Range Interpretation Comments Estimat Glomerular Filtration Rate (test code = 080665114) 15 >60 Ranges were taken from the National Kidney Disease Education Program and the [facility] literature.Reference ranges:60 or greater: Awnjfk20-63 ( for 3 consecutive months): Chronic kidney disease 15 or less: Kidney failureMethodist Hospital NortheastGlucose futamrvmrwh1658-55-82 05:05:00* Test Item Value Reference Range Interpretation Comments Glucose Level (test code = JPT2500) 271 74-[address] [facility] plasma calcium measurement (mass/volume)2019-06-22 05:05:00* Test Item Value Reference Range Interpretation Comments Calcium Level (test code = 72739-6) 7.7 8.4-10.[address] [facility] albumin measurement (mass/volume)2019-06-22 05:05:00* Test Item Value Reference Range Interpretation Comments Albumin (test code = 1751-7) 1.6 3.5-5.0 [facility]Ven[facility] blood ionized calcium measurement (mass/volume)2019-06-22 05:05:00* Test Item Value Reference Range Interpretation Comments Ionized Calcium (test code = 60795-8) 1.1 1.09-1.30 [facility] NortheastBlood leukocytes automated count (number/volume)2019-06-20 05:10:00* Test Item Value Reference Range Interpretation Comments White Blood Count (test code = 6690-2) 3.29 4.8-10.8 [facility] NortheastBlood erythrocytes automated count (number/volume)2019-06-20 05:10:00* Test Item Value Reference Range Interpretation Comments Red Blood Count (test code = 789-8) 3.57 4.3-5.7 [facility] (moles/volume)2019-06-20 05:10:00* Test Item Value Reference Range Interpretation Comments Hemoglobin (test code = 05130-0) 9.0 14.0-18.0 [facility] NortheastAutomated blood hematocrit (volume fraction)2019-06-20 05:10:00* Test Item Value Reference Range Interpretation Comments Hematocrit (test code = 4544-3) 29.1 38.2-49.6 [facility] NortheastAutomated erythrocyte mean corpuscular hbwiss2698-80-25 05:10:00* Test Item Value Reference Range Interpretation Comments Mean Corpuscular Volume (test code = 787-2) 81.5 81-99 [facility] NortheastAutomated erythrocyte mean corpuscular hemoglobin (mass per erythrocyte)2019-06-20 05:10:00* Test Item Value Reference Range Interpretation Comments Mean Corpuscular Hemoglobin (test code = 785-6) 25.2 28-32 [facility] NortheastAutomated erythrocyte mean corpuscular hemoglobin concentration measurement (mass/volume)2019-06-20 05:10:00* Test Item Value Reference Range Interpretation Comments Mean Corpuscular Hemoglobin Concent (test code = 786-4) 30.9 31-35 [facility] NortheastRDW YqkCp-Bfz9656-54-27 05:10:00* Test Item Value Reference Range Interpretation Comments Red Cell Distribution Width (test code = 13447-2) 14.9 11.7 -14.4 [facility] NortheastAutomated blood platelet count (count/volume)2019-06-20 05:10:00* Test Item Value Reference Range Interpretation Comments Platelet Count (test code = 777-3) 133 140-360 [facility] NortheastAutomated blood segmented neutrophil count as percentage of total ylllacfkqv7357-10-80 05:10:00* Test Item Value Reference Range Interpretation Comments Neutrophils (%) (Auto) (test code = 72589-3) 48.9 38.7-80.0 [facility] NortheastAutangel medical centered blood lymphocyte count as percentage ot total qkjthzytrw7910-73-51 05:10:00* Test Item Value Reference Range Interpretation Comments Lymphocytes (%) (Auto) (test code = 736-9) 31.0 18.0-39.1 [facility] NortheastAutomated blood monocyte count as percentage of total gkwemekcgq8514-58-56 05:10:00* Test Item Value Reference Range Interpretation Comments Monocytes (%) (Auto) (test code = 5905-5) 11.9 4.4-11.3 [facility] NortheastAutomated blood eosinophil count as percentage of total luzebxuzxr7471-36-20 05:10:00* Test Item Value Reference Range Interpretation Comments Eosinophils (%) (Auto) (test code = 713-8) 7.3 0.0-6.0 [facility] NortheastAutangel [facility] centered blood basophil count as percentage of total jlecebpndx1851-03-69 05:10:00* Test Item Value Reference Range Interpretation Comments Basophils (%) (Auto) (test code = 706-2) 0.3 0.0-1.0 [facility] NortheastFluoroscopic procedure less than one hour hsxxphcy4985-30-60 05:10:00* Test Item Value Reference Range Interpretation Comments IM GRANULOCYTES % (test code = IM GRANULOCYTES %) 0.6 0.0- 1.0 [facility] NortheastAutomated blood neutrophil count 2019-06-20 05:10:00* Test Item Value Reference Range Interpretation Comments Neutrophils # (Auto) (test code = 751-8) 1.6 2.1-6.9 [facility] NortheastBlood lymphocytes count (number/volume) 2019-06-20 05:10:00* Test Item Value Reference Range Interpretation Comments Lymphocytes # (Auto) (test code = 55238-3) 1.0 1.0-3.2 [facility] NortheastBlood monocytes automated count (number/volume)2019-06-20 05:10:00* Test Item Value Reference Range Interpretation Comments Monocytes # (Auto) (test code = 742-7) 0.4 0.2-0.8 [facility] NortheastAutomated blood eosinophil count 2019-06-20 05:10:00* Test Item Value Reference Range Interpretation Comments Eosinophils # (Auto) (test code = 711-2) 0.2 0.0-0.4 [facility] NortheastAutomated blood basophil count (count/volume)2019-06-20 05:10:00* Test Item Value Reference Range Interpretation Comments Basophils # (Auto) (test code = 704-7) 0.0 0.0-0.1 [facility] NortheastFluoroscopic procedure less than one hour bpiykgbp3859-43-55 05:10:00* Test Item Value Reference Range Interpretation Comments Absolute Immature Granulocyte (auto (shin t code = Absolute Immature Granulocyte (auto) 0.02 0-0.1 [facility] NortheastCHEST 2 XLFDH4864-09-70 10:46:00 [facility] [address] [place] [address] Patient Name: MANJIT LUO MR #: [id number] : 1980 Age/Sex: 38/M Req #: [id number] Adm Physician: ABHIJIT YODER MD Ordered by: CASTRO JALLOH MD Report #: [id number] Location: MED/SURG Room/Bed: [facility] Procedure: [id number] DX/CH EST 2 VIEWS Exam Date: Exam [...] TIFFANY on 06/16/19 1 047 COPY TO: CASTRO JALLOH MD Blood iguinnz2924-17-01 09:50:00* Test Item Value Reference Range Interpretation Comments Blood Culture (test code = 64693462) NO GROWTH AFTER 5 DAYS, FINAL REPORT [facility] plasma intact pararthyroid hormone measurement (mass/volume)2019-06-15 05:20:00* Test Item Value Reference Range Interpretation Comments Parathyroid Hormone (Intact) (test code = 2731-8) 313 15-6 5 Performed at: [facility] [id number] Director: Doc Bartlett MD, Phone: [phone] Trail Baptist Hospitalerum or plasma intact pararthyroid hormone measurement (mass/volume) 2019-06-15 05:20:00* Test Item Value Reference Range Interpretation Comments Parathyroid Hormone (Intact) (test code = 2731-8) 313 15-6 5 Performed at: [facility] [id number] Director: Doc Bartlett MD, Phone: [phone] Trail Baptist Hospitalerum or plasma magnesium measurement (mass/volume)2019-06-13 17:37:00* Test Item Value Reference Range Interpretation Comments Magnesium Level (test code = 14308-4) 1.5 1.3-2.[address] [facility]er[facility] plasma magnesium measurement (mass/volume)2019-06-13 17:37:00* Test Item Value Reference Range Interpretation Comments Magnesium Level (test code = 68990-2) 1.5 1.3-2.1 [facility]CHE[facility] SINGLE (PORTABLE)2019-06-13 17:09:00 [facility] [address] [address] Patient Name: MANJIT LUO MR #: [id number] : 1980 Age/Sex: 38/M Req #: [id number] Adm Physician: ABHIJIT YODER MD Ordered by: CASTRO JALLOH MD Report #: [id number] Location: MED/SURG Room/Bed: [facility] Procedure: [id number] DX/CH EST SINGLE (PORTABLE) Exam Date: 06/13/19 [...] MD on 06/13/2019 5:11 PM Dictated By: LYAO FERRER MD 10 Transcribed By: TIFFANY on 06/13/191710 COPY TO: CASTRO JALLOH MD Serum or plasma total bilirubin measurement (mass/volume)2019-06-13 05:30:00* Test Item Value Reference Range Interpretation Comments Total Bilirubin (test code = 1975-2) 0.3 0.2-1.2 [facility] NortheastFluoroscopic procedure less than one hour wopqljww8479-12-08 05:30:00* Test Item Value Reference Range Interpretation Comments Aspartate Amino Transf (AST/SGOT) (test code = Aspartate Amino Transf (AST/SGOT)) 38 5-[address] [facility]er[facility] or plasma alanine aminotransferase measurement (enzymatic activity/volume)2019-06-13 05:30:00* Test Item Value Reference Range Interpretation Comments Alanine Aminotransferase (ALT/SGPT) (test code = 1742-6) 22 0-[address] [facility]erum or plasma protein measurement (mass/volume)2019-06-13 05:30:00* Test Item Value Reference Range Interpretation Comments Total Protein (test code = 2885-2) 7.6 6.5-8.1 [facility] NortheastPlasma globulin measurement (mass/volume) 2019-06-13 05:30:00* Test Item Value Reference Range Interpretation Comments Globulin (test code = 52891-6) 5.1 2.3-3.[address] [facility]er[facility] or plasma albumin/globulin mass efkjf6676-36-97 05:30:00* Test Item Value Reference Range Interpretation Comments Albumin/Globulin Ratio (test code = 1759-0) 0.5 0.8-2.[address] [facility]er[facility] or plasma alkaline phosphatase measurement (enzymatic activity/volume)2019-06-13 05:30:00* Test Item Value Reference Range Interpretation Comments Alkaline Phosphatase (test code = 6768-6) 332 40-150 [facility] NortheastUrine color pezuqeblcrizc8392-68-66 12:24:00* Test Item Value Reference Range Interpretation Comments Urine Color (test code = 5778-6) YELLOW YELLOW [facility] NortheastUrine sismure2146-77-07 12:24:00* Test Item Value Reference Range Interpretation Comments Urine Clarity (test code = 75799-1) TURBID CLEAR [facility] Hospitalpecific gravity of Urine by Test strip 2019-06-12 12:24:00* Test Item Value Reference Range Interpretation Comments Urine Specific [place] (test code = 5811-5) 1.020 1.010-1.02 5 [facility] NortheastU[facility] pH measurement by automated test jaxfw9524-56-54 12:24:00* Test Item Value Reference Range Interpretation Comments Urine pH (test code = 57605-0) 6 5-7 [facility] NortheastUrine leukocyte esterase detection by qffmzblf9143-85-17 12:24:00* Test Item Value Reference Range Interpretation Comments Urine Leukocyte Esterase (test code = 5799-2) 1+ NEGATIVE [facility] NortheastUrine nitrite giwcspjvz3631-06-79 12:24:00* Test Item Value Reference Range Interpretation Comments Urine Nitrite (test code = 79881-1) NEGATIVE NEGATIVE [facility] NortheastU[facility] protein measurement by test strip (mass/volume)2019-06-12 12:24:00* Test Item Value Reference Range Interpretation Comments Urine Protein (test code = 5804-0) >=300 NEGATIVE [facility] NortheastU[facility] glucose zvobhiwpq8457-06-49 12:24:00* Test Item Value Reference Range Interpretation Comments Urine Glucose (UA) (test code = 2349-9) NEGATIVE NEGATIVE [facility] NortheastUrine ketones detection by automated test xqsft6260-12-51 12:24:00* Test Item Value Reference Range Interpretation Comments Urine Ketones (test code = 12467-5) TRACE NEGATIVE [facility] NortheastUrine urobilinogen measurement by test strip (mass/volume)2019-06-12 12:24:00* Test Item Value Reference Range Interpretation Comments Urine Urobilinogen (test code = 84144-6) 0.2 0.2-1 [facility] NortheastU[facility] total bilirubin measurement (mass/volume)2019-06-12 12:24:00* Test Item Value Reference Range Interpretation Comments Urine Bilirubin (test code = 1978-6) NEGATIVE NEGATIVE [facility] NortheastU[facility] erythrocytes nugwpjcra4910-73-39 12:24:00* Test Item Value Reference Range Interpretation Comments Urine Blood (test code = 23383-6) 3+ NEGATIVE [facility] NortheastAutomated urine sediment leukocyte count by microscopy (number/high power field)2019-06-12 12:24:00* Test Item Value Reference Range Interpretation Comments Urine WBC (test code = 5821-4) 21-50 0-5 [facility] NortheastErythrocytes detection in urine sediment by light hlcybbhwdy1699-49-31 12:24:00* Test Item Value Reference Range Interpretation Comments Urine RBC (test code = 12757-7) 11-20 0-5 [facility] NortheastBacteria detection in urine sediment by light ytalvwxjax0340-83-92 12:24:00* Test Item Value Reference Range Interpretation Comments Urine Bacteria (test code = 55156-4) MANY NONE [facility] NortheastEpithelial cells detection in urine sediment by light jpwmzopawf5132-66-04 12:24:00* Test Item Value Reference Range Interpretation Comments Urine Epithelial Cells (test code = 94000-6) RARE NONE [facility] NortheastMucus detection in urine sediment by light rbeugnszzb3460-93-13 12:24:00* Test Item Value Reference Range Interpretation Comments Urine Mucus (test code = 8247-9) FEW RARE [facility] NortheastMucus detection in urine sediment by light ihvgywfavp4781-50-14 12:24:00* Test Item Value Reference Range Interpretation Comments Urine Mucus (test code = 8247-9) FEW RARE [facility] NortheastBNP Aeg-oOpd3367-55-19 12:15:00* Test Item Value Reference Range Interpretation Comments B-Type Natriuretic Peptide (test code = 77147-6) 218.9 0-[address] [facility]er[facility] or plasma creatine kinase measurement (enzymatic activity/volume)2019-06-12 12:15:00* Test Item Value Reference Range Interpretation Comments Creatine Kinase (test code = 2157-6) 65 30-[address] [facility]er[facility] or plasma creatine kinase MB measurement (mass/volume)2019-06-12 12:15:00* Test Item Value Reference Range Interpretation Comments Creatine Kinase MB (test code = 39702-0) 3.90 0-5.0 [facility] NortheastTroponin I measurement by highly sensitive enzyme ixwilfhdqci9670-30-43 12:15:00* Test Item Value Reference Range Interpretation Comments Troponin I (test code = 01539-0) 0.053 0-0.[address] [facility]er[facility] plasma lipase measurement (enzymatic activity/volume)2019-06-12 12:15:00* Test Item Value Reference Range Interpretation Comments Lipase (test code = 3040-3) [address] [facility]er[facility] or plasma ethanol measurement (mass/volume)2019-06-12 12:15:00* Test Item Value Reference Range Interpretation Comments Ethyl Alcohol Level (test code = 5643-2) < 10.0 0.0-10.0 [facility] R[facility]-qWba7971-[facility] 12:15:00* Test Item Value Reference Range Interpretation Comments B-Type Natriuretic Peptide (test code = 29940-5) 218.9 0-[address] [facility]er[facility] or plasma lipase measurement (enzymatic activity/volume)2019-06-12 12:15:00* Test Item Value Reference Range Interpretation Comments Lipase (test code = 3040-3) [address] [facility]er[facility] or plasma ethanol measurement (mass/volume)2019-06-12 12:15:00* Test Item Value Reference Range Interpretation Comments Ethyl Alcohol Level (test code = 5643-2) < 10.0 0.0-10.0 [facility]CHE[facility]INGLE ([facility]ABLE)2019-06-12 12:12:00 [facility] [address] [place] [address] Patient Name: MANJIT LUO MR #: [id number] : 1980 Age/Sex: 38/M Req #: [id number] Adm Physician: Ordered by: JONATHAN YODER DO Report #: [id number] Location: ER Room/Bed: Procedure: [id number] DX/ CHEST SINGLE (PORTABLE) Exam Date: 06/12/19 [...] 1215 COPY TO: JONATHAN YODER DO Urine CVT0783-85-92 06:13:00* Test Item Value Reference Range Interpretation Comments Urine WBC (test code = 5821-4) >50 0-5 H [facility] NortheastU[facility] JOE7405-06-44 06:13:00* Test Item Value Reference Range Interpretation Comments Urine RBC (test code = 02503-9) 11-20 0-5 H [facility] NortheastU[facility] Tnbwrblj9188-95-54 06:13:00* Test Item Value Reference Range Interpretation Comments Urine Bacteria (test code = 11362-5) FEW NONE [facility] NortheastU[facility] Epithelial Klelc3526-26-43 06:13:00 * Test Item Value Reference Range Interpretation Comments Urine Epithelial Cells (test code = 74612-7) FEW NONE [facility] NortheastU[facility] Uhigl3571-19-70 05:56:00* Test Item Value Reference Range Interpretation Comments Urine Color (test code = 5778-6) YELLOW YELLOW [facility] NortheastU[facility] Ntqwhur4074-08-89 05:56:00* Test Item Value Reference Range Interpretation Comments Urine Clarity (test code = 79308-1) CLOUDY CLEAR H [facility] Specific Zutvlqg3598-64-43 05:56:00 * Test Item Value Reference Range Interpretation Comments Urine Specific [place] (test code = 5811-5) 1.025 1.010-1.02 5 [facility] NortheastU[facility] lM1408-25-23 05:56:00* Test Item Value Reference Range Interpretation Comments Urine pH (test code = 31611-6) 7 5-7 [facility] Leukocyte Lmsxonxm2819-41-58 05:56:00* Test Item Value Reference Range Interpretation Comments Urine Leukocyte Esterase (test code = 5799-2) MODERATE NEGATIVE [facility] Vlpaebc7533-04-83 05:56:00* Test Item Value Reference Range Interpretation Comments Urine Nitrite (test code = 01438-5) NEGATIVE NEGATIVE [facility] NortheastU[facility] Czqgjnm8332-09-60 05:56:00* Test Item Value Reference Range Interpretation Comments Urine Protein (test code = 5804-0) >=300 NEGATIVE [facility] Glucose (UA)2019-06-09 05:56:00* Test Item Value Reference Range Interpretation Comments Urine Glucose (UA) (test code = 2349-9) NEGATIVE NEGATIVE [facility] Wyiybbv2976-90-25 05:56:00* Test Item Value Reference Range Interpretation Comments Urine Ketones (test code = 05986-1) NEGATIVE NEGATIVE [facility] Vsdcrshrrltr2058-02-15 05:56:00* Test Item Value Reference Range Interpretation Comments Urine Urobilinogen (test code = 04006-4) 0.2 0.2-1 [facility] NortheastU[facility] Adwiqusqi4767-93-47 05:56:00* Test Item Value Reference Range Interpretation Comments Urine Bilirubin (test code = 1978-6) NEGATIVE NEGATIVE [facility] NortheastU[facility] Kxmvl2576-58-70 05:56:00* Test Item Value Reference Range Interpretation Comments Urine Blood (test code = 71964-5) 2+ NEGATIVE [facility] NortheastAmylase Prjsd8012-29-05 05:47:00* Test Item Value Reference Range Interpretation Comments Amylase Level (test code = 1798-8) 41 25-125 [facility] NortheastLipase2020-04-16 05:47:00* Test Item Value Reference Range Interpretation Comments Lipase (test code = 3040-3) 15 8-[address] [facility] Ddrqc7152-26-92 05:37:00* Test Item Value Reference Range Interpretation Comments Sodium Level (test code = 2951-2) 135 136-145 L [facility] NortheastPotassium Owkqs1178-22-54 05:37:00* Test Item Value Reference Range Interpretation Comments Potassium Level (test code = 2823-3) 5.0 3.5-5.1 [facility] NortheastChloride Twesq7180-02-58 05:37:00* Test Item Value Reference Range Interpretation Comments Chloride Level (test code = 2075-0) 107 98-107 [facility] NortheastCarbon Dioxide Weohs8635-44-28 05:37:00* Test Item Value Reference Range Interpretation Comments Carbon Dioxide Level (test code = 2028-9) 20 22-29 L [facility] NortheastAnion Gxm8743-52-49 05:37:00* Test Item Value Reference Range Interpretation Comments Anion Gap (test code = 34732-8) 13.0 8-16 [facility] NortheastBlood Urea Jykkbpba6828-70-06 05:37:00* Test Item Value Reference Range Interpretation Comments Blood Urea Nitrogen (test code = 3094-0) 55 7-26 H [facility] NortheastCreatinine2020-04-16 05:37:00* Test Item Value Reference Range Interpretation Comments Creatinine (test code = 2160-0) 5.13 0.72-1.25 H [facility] NortheastBUN/Creatinine Pkyvo0303-40-60 05:37:00* Test Item Value Reference Range Interpretation Comments BUN/Creatinine Ratio (test code = 3097-3) 11 6-25 [facility] NortheastEstimat Glomerular Filtration Rate 2019-06-09 05:37:00* Test Item Value Reference Range Interpretation Comments Estimat Glomerular Filtration Rate (test code = 840080596) 13 >60 L Ranges were taken from the National Kidney Disease Education Program and the [facility] literature.Reference ranges:60 or greater: Xqvhdt72-89 ( for 3 consecutive months): Chronic kidney disease 15 or less: Kidney failureCH[facility] Ut Health HendersonGlucose Dmftb9886-19-96 05:37:00* Test Item Value Reference Range Interpretation Comments Glucose Level (test code = CHZ1728) 148 74-118 H [facility] NortheastCalcium Rshaz7292-28-74 05:37:00* Test Item Value Reference Range Interpretation Comments Calcium Level (test code = 47293-0) 7.6 8.4-10.2 L [facility] NortheastTotal Onaxjekhl6539-40-09 05:37:00* Test Item Value Reference Range Interpretation Comments Total Bilirubin (test code = 1975-2) 0.2 0.2-1.2 [facility] NortheastAspartate Amino Transf (AST/SGOT) 2019-06-09 05:37:00* Test Item Value Reference Range Interpretation Comments Aspartate Amino Transf (AST/SGOT) (test code = Aspartate Amino Transf (AST/SGOT)) 18 5-34 [facility] NortheastAlanine Aminotransferase (ALT/SGPT) 2019-06-09 05:37:00* Test Item Value Reference Range Interpretation Comments Alanine Aminotransferase (ALT/SGPT) (test code = 1742-6) 17 0-55 [facility] Jckstte7097-39-31 05:37:00* Test Item Value Reference Range Interpretation Comments Total Protein (test code = 2885-2) 8.0 6.5-8.1 [facility]Albumin2020-04-16 05:37:00* Test Item Value Reference Range Interpretation Comments Albumin (test code = 1751-7) 2.7 3.5-5.0 L [facility]Globulin2020-04-16 05:37:00* Test Item Value Reference Range Interpretation Comments Globulin (test code = 20391-0) 5.3 2.3-3.5 H [facility]Album[facility]/Globulin Xqnux2199-82-03 05:37:00 * Test Item Value Reference Range Interpretation Comments Albumin/Globulin Ratio (test code = 1759-0) 0.5 0.8-2.0 L [facility]Alkaline Qkadofufiph4229-80-18 05:37:00* Test Item Value Reference Range Interpretation Comments Alkaline Phosphatase (test code = 6768-6) 279 40-150 [facility]UB)2019-06-09 05:32:00 [place] [address] Patient Name: MANJIT LUO MR #: [id number] : 1980 Age/Sex: 38/M Req #: [id number] Adm Physician: Ordered by: MARIELLE MARSH MD Report #: [id number] Location: ER Room/Bed: Procedure: [id number] DX/ABDOMEN-1VIEW [...] COPY TO: MARIELLE MARSH MD Bacterial urine zmsjryr9657-72-21 05:25:00* Test Item Value Reference Range Interpretation Comments Urine Culture (test code = 630-4) SUMIT PARAPSILOSIS [facility] Blood Oaijj4980-22-66 05:08:00* Test Item Value Reference Range Interpretation Comments White Blood Count (test code = 6690-2) 6.14 4.8-10.8 [facility] Blood Zwpqm7480-66-56 05:08:00* Test Item Value Reference Range Interpretation Comments Red Blood Count (test code = 789-8) 3.63 4.3-5.7 L [facility]Hemoglobin2020-04-16 05:08:00* Test Item Value Reference Range Interpretation Comments Hemoglobin (test code = 30058-9) 9.3 14.0-18.0 L [facility]Hematocrit2020-04-16 05:08:00* Test Item Value Reference Range Interpretation Comments Hematocrit (test code = 4544-3) 29.7 38.2-49.6 L [facility]Mean Corpuscular Sxggpv7826-82-38 05:08:00* Test Item Value Reference Range Interpretation Comments Mean Corpuscular Volume (test code = 787-2) 81.8 81-99 [facility] Corpuscular Nqdtvcftuv5167-32-42 05:08:00* Test Item Value Reference Range Interpretation Comments Mean Corpuscular Hemoglobin (test code = 785-6) 25.6 28-32 L [facility]Mean Corpuscular Hemoglobin Concent 2019-06-09 05:08:00* Test Item Value Reference Range Interpretation Comments Mean Corpuscular Hemoglobin Concent (test code = 786-4) 31.3 31-35 [facility]Red Cell Distribution Gduow0558-52-12 05:08:00* Test Item Value Reference Range Interpretation Comments Red Cell Distribution Width (test code = 78283-1) 15.0 11.7 -14.4 H [facility] NortheastPlatelet Txort5027-14-64 05:08:00* Test Item Value Reference Range Interpretation Comments Platelet Count (test code = 777-3) 141 140-360 [facility]Neutrophils (%) (Auto)2019-06-09 05:08:00 * Test Item Value Reference Range Interpretation Comments Neutrophils (%) (Auto) (test code = 69391-3) 68.2 38.7-80.0 [facility]Lymphocytes (%) (Auto)2019-06-09 05:08:00 * Test Item Value Reference Range Interpretation Comments Lymphocytes (%) (Auto) (test code = 736-9) 18.7 18.0-39.1 [facility]Monocytes (%) (Auto)2019-06-09 05:08:00* Test Item Value Reference Range Interpretation Comments Monocytes (%) (Auto) (test code = 5905-5) 6.2 4.4-11.3 [facility]Eosinophils (%) (Auto)2019-06-09 05:08:00 * Test Item Value Reference Range Interpretation Comments Eosinophils (%) (Auto) (test code = 713-8) 4.1 0.0-6.0 [facility]Basophils (%) (Auto)2019-06-09 05:08:00* Test Item Value Reference Range Interpretation Comments Basophils (%) (Auto) (test code = 706-2) 0.7 0.0-1.0 [facility]IM GRANULOCYTES %2019-06-09 05:08:00* Test Item Value Reference Range Interpretation Comments IM GRANULOCYTES % (test code = IM GRANULOCYTES %) 2.1 0.0- 1.0 H [facility]Neutrophils # (Auto)2019-06-09 05:08:00* Test Item Value Reference Range Interpretation Comments Neutrophils # (Auto) (test code = 751-8) 4.2 2.1-6.9 [facility]Lymphocytes # (Auto)2019-06-09 05:08:00* Test Item Value Reference Range Interpretation Comments Lymphocytes # (Auto) (test code = 76080-4) 1.2 1.0-3.2 [facility]Monocytes # (Auto)2019-06-09 05:08:00* Test Item Value Reference Range Interpretation Comments Monocytes # (Auto) (test code = 742-7) 0.4 0.2-0.8 [facility]Eosinophils # (Auto)2019-06-09 05:08:00* Test Item Value Reference Range Interpretation Comments Eosinophils # (Auto) (test code = 711-2) 0.3 0.0-0.4 [facility]Basophils # (Auto)2019-06-09 05:08:00* Test Item Value Reference Range Interpretation Comments Basophils # (Auto) (test code = 704-7) 0.0 0.0-0.1 [facility]Absolute Immature Granulocyte (auto 2019-06-09 05:08:00* Test Item Value Reference Range Interpretation Comments Absolute Immature Granulocyte (auto (shin t code = Absolute Immature Granulocyte (auto) 0.13 0-0.[address] [facility] amylase measurement (enzymatic activity/volume)2019-06-09 04:50:00* Test Item Value Reference Range Interpretation Comments Amylase Level (test code = 1798-8) 41 25-[address] [facility] plasma amylase measurement (enzymatic activity/volume)2019-06-09 04:50:00* Test Item Value Reference Range Interpretation Comments Amylase Level (test code = 1798-8) 41 25-125 [facility]Blood Jpdunom7399-69-22 01:59:00* Test Item Value Reference Range Interpretation Comments Blood Culture (test code = 31903704) NO GROWTH AFTER 5 DAYS, FINAL REPORT [facility] Slfvmak4602-51-33 16:41:00* Test Item Value Reference Range Interpretation Comments Bedside Glucose (test code = 14892-6) 71 70-120 Meter ID: [id number] [facility] Glucose 2019-06-03 16:41:00* Test Item Value Reference Range Interpretation Comments Bedside Glucose (test code = 78860-7) 71 70-120 Meter ID: [id number] [facility] 2019-[facility] 10:15:00* Test Item Value Reference Range Interpretation Comments Urine Culture (test code = 630-4) No Result Data Provided [facility] Dsndadm6886-02-91 10:15:00* Test Item Value Reference Range Interpretation Comments Urine Culture (test code = 630-4) No Result Data Provided [facility] NortheastIR IPRJUUP7933-77-28 15:49:00 [place] [address] Patient Name: MANJIT LUO MR #: [id number] : 1980 Age/Sex: 38/M Req #: [id number] Adm Physician: ABHIJIT YODER MD Ordered by: FAIZA DOWNEY Report #: [id number] Location: MED/SURG3 Room/Bed: [facility] Procedure: [id number] DX/IR CONSULT Exam Date: Exam Time: REPORT [...] 30. Primary Ope rator: Gen Anthony MD. Free Lance Artist: None. Approach: Left internal jugular vein Estimated [...] the needle into the IVC. A 6 Tunisian peel-away sheath was placed. A subcutaneous tunnel was created in the left anterior chest wall by blunt dissection. A 6 Tunisian dual-lumen tunneled central line was brought through [...] TO: FAIZA DOWNEY TUNNELLED CVC INSERT W/O NEQI0314-23-00 15:49:00 [place] [address] Patient Name: MANJIT LUO MR #: [id number] : 1980 Age/Sex: 38/M Req #: [id number] Adm Physician: ABHIJIT YODER MD Ordered by: ABHIJIT YODER MD Report #: [id number] Location: MED/SURG3 Room/Bed: [facility] Procedure: [id number] IR/TU NNELLED CVC INSERT W/O PORT Exam Date: Exam Time: REPORT STATUS: Signed Procedures: 1. Tunneled central line placement 2. Tunneled dialysis catheter removal. History: Need for long-term IV antibiotics. Modality: Sonography and fluoroscopy. Sedation: fentanyl 50 mcg was given intravenously for conscious sedation. Vital signs were monitored throughout the procedure by a nurse, and remained stable. Physician intra-service time was 30. Final Cigar And Box Examiner: Gen Anthony MD. Free Lance Artist: None. Approach: Left internal jugular vein Estimated [...] the needle into the IVC. A 6 Tunisian peel-away sheath was placed. A subcutaneous tunnel was created in the left anterior chest wall by blunt dissection. A 6 Tunisian dual- lumen tunneled central line was brought [...] 3:52 PM Dictated By: GEN Swan MD 051 Transcribed By : TIFFANY on 06/02/19 622 COPY TO: ABHIJIT YODER MD US GUIDANCE FOR VASCULAR OZIQK1637-25-25 15:49:00 [facility] [address] [place] [address] Patient Name: MANJIT LUO MR #: [id number] : 1980 Age/Sex: 38/M Req #: [id number] Adm Physician: ABHIJIT YODER MD Ordered by: FAIZA DOWNEY Report #: [id number] Location: MED/SURG3 Room/Bed: [facility] Procedure: [id number] US/US GUIDANCE FOR VASCULAR ACCES Exam Date: [...] remained stable. Physician intra-service time was 30. Final Cigar And Box Examiner: Gen Anthony MD. Free Lance Artist: None. Approach: Left internal jug ular vein [...] the needle into the IVC. A 6 Tunisian peel-away sheath was placed. A subcutaneous tunnel was created in the left anterior chest wall by blunt dissection. A 6 Tunisian dual- lumen tunneled central line was brought [...] on 06/02/191551 COPY TO: FAIZA DOWNEY Prothrombin Ydbo5160-60-09 12:37:00* Test Item Value Reference Range Interpretation Comments Prothrombin Time (test code = 5902-2) 15.4 11.9-14.5 H [facility] NortheastProthromb Time International Ratio 2019-06-02 12:37:00* Test Item Value Reference Range Interpretation Comments Prothromb Time International Ratio (test code = 6301-6) 1.15 Oral Anticoagulant Therapy INR Values:1. Low Intensity Therapy 1.5 - 2.02 . Moderate Intensity Therapy 2.0 - 3.03. High Intensity Therapy(1) 2.5 - 3. 54. High Intensity Therapy(2) 3.0 - 4.05. Panic Value INR > 5.0 [facility] NortheastProthrombin Jcaq9271-58-39 12:37:00* Test Item Value Reference Range Interpretation Comments Prothrombin Time (test code = 5902-2) 15.4 11.9-14.5 H [facility] NortheastProthromb Time International Ratio 2019-06-02 12:37:00* Test Item Value Reference Range Interpretation Comments Prothromb Time International Ratio (test code = 6301-6) 1.15 Oral Anticoagulant Therapy INR Values:1. Low Intensity Therapy 1.5 - 2.02 . Moderate Intensity Therapy 2.0 - 3.03. High Intensity Therapy(1) 2.5 - 3. 54. High Intensity Therapy(2) 3.0 - 4.05. Panic Value INR > 5.0 [facility] NortheastProthrombin time (PT) in platelet poor plasma by coagulation ionly9156-40-32 12:20:00* Test Item Value Reference Range Interpretation Comments Prothrombin Time (test code = 5902-2) 15.4 11.9-14.5 [facility] NortheastINR in Platelet poor plasma by Coagulation vqvgy8152-67-78 12:20:00* Test Item Value Reference Range Interpretation Comments Prothromb Time International Ratio (test code = 6301-6) 1.15 Oral Anticoagulant Therapy INR Values:1. Low Intensity Therapy 1.5 - 2.02 . Moderate Intensity Therapy 2.0 - 3.03. High Intensity Therapy(1) 2.5 - 3. 54. High Intensity Therapy(2) 3.0 - 4.05. Panic Value INR > 5.0 [facility] NortheastHepatitis B Surface Yfblopf3050-92-98 08:56:00* Test Item Value Reference Range Interpretation Comments Hepatitis B Surface Antigen (test code = 5196-1) Negative Negat stuart Performed at: [facility] [id number] Director: Doc Bartlett MD, Phone: [phone] Hospital NortheastHec[facility] B Surface Jukcaqq0230-89-14 08:56:00* Test Item Value Reference Range Interpretation Comments Hepatitis B Surface Antigen (test code = 5196-1) Negative Negat stuart Performed at: - [address] [id number] Director: Doc Bartlett MD, Phone: [phone] Hospital NortheastBlood Buatlai4668-59-05 01:59:00* Test Item Value Reference Range Interpretation Comments Blood Culture (test code = 10843793) NO GROWTH AFTER [address] [facility] or plasma hepatitis B virus surface antigen detection by xmcdbuoqavm9179-11-22 14:15:00* Test Item Value Reference Range Interpretation Comments Hepatitis B Surface Antigen (test code = 5196-1) Negative Negat stuart Performed at: - [address] [id number] Director: Dco Bartlett MD, Phone: [phone] Trail Baptist Hospitalerum or plasma hepatitis B virus surface antigen detection by immunoassay 2019-06-01 14:15:00* Test Item Value Reference Range Interpretation Comments Hepatitis B Surface Antigen (test code = 5196-1) Negative Negat stuart Performed at: - [address] [id number] Director: Doc Bartlett MD, Phone: [phone] Trail Baptist Hospitalodium Ivfoh2322-21-82 07:00:00* Test Item Value Reference Range Interpretation Comments Sodium Level (test code = 2951-2) 136 136-145 [facility] NortheastPotassium Shtlm3091-35-88 07:00:00* Test Item Value Reference Range Interpretation Comments Potassium Level (test code = 2823-3) 5.2 3.5-5.1 H [facility] NortheastChloride Zqjis3026-36-90 07:00:00* Test Item Value Reference Range Interpretation Comments Chloride Level (test code = 2075-0) 109 98-107 H [facility] NortheastCarbon Dioxide Njzeq7063-92-96 07:00:00* Test Item Value Reference Range Interpretation Comments Carbon Dioxide Level (test code = 2028-9) 20 22-29 L [facility] NortheastAnion Mgj7916-95-90 07:00:00* Test Item Value Reference Range Interpretation Comments Anion Gap (test code = 51829-0) 12.2 8-16 [facility]Blood Urea Shcapxes8980-99-63 07:00:00* Test Item Value Reference Range Interpretation Comments Blood Urea Nitrogen (test code = 3094-0) 59 7-26 H [facility] NortheastCreatinine2020-04-08 07:00:00* Test Item Value Reference Range Interpretation Comments Creatinine (test code = 2160-0) 5.91 0.72-1.25 H [facility] NortheastBUN/Creatinine Clnli4869-93-10 07:00:00* Test Item Value Reference Range Interpretation Comments BUN/Creatinine Ratio (test code = 3097-3) 10 6-25 [facility] NortheastEstimat Glomerular Filtration Rate 2019-06-01 07:00:00* Test Item Value Reference Range Interpretation Comments Estimat Glomerular Filtration Rate (test code = 148193980) 11 >60 L Ranges were taken from the National Kidney Disease Education Program and the [facility] literature.Reference ranges:60 or greater: Ybarnq75-44 ( for 3 consecutive months): Chronic kidney disease 15 or less: Kidney failureMethodist Hospital NortheastGlucose Rpfgj8469-22-19 07:00:00* Test Item Value Reference Range Interpretation Comments Glucose Level (test code = OUR0667) 130 74-118 H [facility] NortheastCalcium Galiu2145-27-54 07:00:00* Test Item Value Reference Range Interpretation Comments Calcium Level (test code = 36942-5) 7.2 8.4-10.2 L [facility] NortheastPhosphorus Dfrlz7864-88-45 07:00:00* Test Item Value Reference Range Interpretation Comments Phosphorus Level (test code = IXV4739) 5.1 2.3-4.7 H [facility] NortheastMagnesium Dydbh7622-01-14 07:00:00* Test Item Value Reference Range Interpretation Comments Magnesium Level (test code = 32517-1) 1.7 1.3-2.1 [facility] NortheastPhosphorus Svguv2323-93-49 07:00:00* Test Item Value Reference Range Interpretation Comments Phosphorus Level (test code = SQT0732) 5.1 2.3-4.7 H [facility] NortheastMagnesium Chwhf4278-77-07 07:00:00* Test Item Value Reference Range Interpretation Comments Magnesium Level (test code = 25300-1) 1.7 1.3-2.1 [facility] NortheastWhite Blood Wzccx8715-32-73 06:30:00* Test Item Value Reference Range Interpretation Comments White Blood Count (test code = 6690-2) 3.49 4.8-10.8 L [facility] NortheastRed Blood Gokcc8493-09-15 06:30:00* Test Item Value Reference Range Interpretation Comments Red Blood Count (test code = 789-8) 3.62 4.3-5.7 L [facility] NortheastHemoglobin2020-04-08 06:30:00* Test Item Value Reference Range Interpretation Comments Hemoglobin (test code = 66165-8) 9.3 14.0-18.0 L [facility] NortheastHematocrit2020-04-08 06:30:00* Test Item Value Reference Range Interpretation Comments Hematocrit (test code = 4544-3) 29.9 38.2-49.6 L [facility] NortheastMean Corpuscular Qjlwgr3899-69-82 06:30:00* Test Item Value Reference Range Interpretation Comments Mean Corpuscular Volume (test code = 787-2) 82.6 81-99 [facility] NortheastMean Corpuscular Ahhnppgigj8334-18-30 06:30:00* Test Item Value Reference Range Interpretation Comments Mean Corpuscular Hemoglobin (test code = 785-6) 25.7 28-32 L [facility] NortheastMean Corpuscular Hemoglobin Concent 2019-06-01 06:30:00* Test Item Value Reference Range Interpretation Comments Mean Corpuscular Hemoglobin Concent (test code = 786-4) 31.1 31-35 [facility] NortheastRed Cell Distribution Eokya9335-24-47 06:30:00* Test Item Value Reference Range Interpretation Comments Red Cell Distribution Width (test code = 82237-1) 15.4 11.7 -14.4 H [facility] NortheastPlatelet Dfuzi3753-08-36 06:30:00* Test Item Value Reference Range Interpretation Comments Platelet Count (test code = 777-3) 118 140-360 L [facility] NortheastNeutrophils (%) (Auto)2019-06-01 06:30:00 * Test Item Value Reference Range Interpretation Comments Neutrophils (%) (Auto) (test code = 67712-1) 70.7 38.7-80.0 [facility] NortheastLymphocytes (%) (Auto)2019-06-01 06:30:00 * Test Item Value Reference Range Interpretation Comments Lymphocytes (%) (Auto) (test code = 736-9) 14.6 18.0-39.1 L [facility] NortheastMonocytes (%) (Auto)2019-06-01 06:30:00* Test Item Value Reference Range Interpretation Comments Monocytes (%) (Auto) (test code = 5905-5) 8.9 4.4-11.3 [facility] NortheastEosinophils (%) (Auto)2019-06-01 06:30:00 * Test Item Value Reference Range Interpretation Comments Eosinophils (%) (Auto) (test code = 713-8) 4.0 0.0-6.0 [facility]Basophils (%) (Auto)2019-06-01 06:30:00* Test Item Value Reference Range Interpretation Comments Basophils (%) (Auto) (test code = 706-2) 0.9 0.0-1.0 [facility] NortheastIM GRANULOCYTES %2019-06-01 06:30:00* Test Item Value Reference Range Interpretation Comments IM GRANULOCYTES % (test code = IM GRANULOCYTES %) 0.9 0.0- 1.0 [facility] NortheastNeutrophils # (Auto)2019-06-01 06:30:00* Test Item Value Reference Range Interpretation Comments Neutrophils # (Auto) (test code = 751-8) 2.5 2.1-6.9 [facility] NortheastLymphocytes # (Auto)2019-06-01 06:30:00* Test Item Value Reference Range Interpretation Comments Lymphocytes # (Auto) (test code = 42390-3) 0.5 1.0-3.2 L [facility] NortheastMonocytes # (Auto)2019-06-01 06:30:00* Test Item Value Reference Range Interpretation Comments Monocytes # (Auto) (test code = 742-7) 0.3 0.2-0.8 [facility] NortheastEosinophils # (Auto)2019-06-01 06:30:00* Test Item Value Reference Range Interpretation Comments Eosinophils # (Auto) (test code = 711-2) 0.1 0.0-0.4 [facility] NortheastBasophils # (Auto)2019-06-01 06:30:00* Test Item Value Reference Range Interpretation Comments Basophils # (Auto) (test code = 704-7) 0.0 0.0-0.1 [facility] NortheastAbsolute Immature Granulocyte (auto 2019-06-01 06:30:00* Test Item Value Reference Range Interpretation Comments Absolute Immature Granulocyte (auto (shin t code = Absolute Immature Granulocyte (auto) 0.03 0-0.1 [facility] NortheastPhosphorus dhvwvzjgkuc5560-42-84 06:00:00 * Test Item Value Reference Range Interpretation Comments Phosphorus Level (test code = DDO6470) 5.1 2.3-4.7 [facility] NortheastTotal Itisklqhf0068-81-67 07:19:00* Test Item Value Reference Range Interpretation Comments Total Bilirubin (test code = 1975-2) 0.5 0.2-1.2 [facility] NortheastAspartate Amino Transf (AST/SGOT) 2019-05-31 07:19:00* Test Item Value Reference Range Interpretation Comments Aspartate Amino Transf (AST/SGOT) (test code = Aspartate Amino Transf (AST/SGOT)) 182 5-34 H [facility] NortheastAlanine Aminotransferase (ALT/SGPT) 2019-05-31 07:19:00* Test Item Value Reference Range Interpretation Comments Alanine Aminotransferase (ALT/SGPT) (test code = 1742-6) 121 0-55 H [facility] NortheastTotal Ifmsiav1560-64-57 07:19:00* Test Item Value Reference Range Interpretation Comments Total Protein (test code = 2885-2) 7.2 6.5-8.1 [facility] NortheastAlbumin2020-04-07 07:19:00* Test Item Value Reference Range Interpretation Comments Albumin (test code = 1751-7) 2.3 3.5-5.0 L [facility] NortheastGlobulin2020-04-07 07:19:00* Test Item Value Reference Range Interpretation Comments Globulin (test code = 28123-6) 4.9 2.3-3.5 H [facility] NortheastAlbumin/Globulin Cnmga6376-43-99 07:19:00 * Test Item Value Reference Range Interpretation Comments Albumin/Globulin Ratio (test code = 1759-0) 0.5 0.8-2.0 L [facility] NortheastAlkaline Uyyjnothitb3834-68-09 07:19:00* Test Item Value Reference Range Interpretation Comments Alkaline Phosphatase (test code = 6768-6) 412 40-150 H [facility] NortheastUrine AXR7858-08-13 02:21:00* Test Item Value Reference Range Interpretation Comments Urine WBC (test code = 5821-4) >50 0-5 H [facility] NortheastUrine AYQ8697-17-70 02:21:00* Test Item Value Reference Range Interpretation Comments Urine RBC (test code = 33429-8) 21-50 0-5 H [facility] NortheastUrine Jlkenvjl0160-10-76 02:21:00* Test Item Value Reference Range Interpretation Comments Urine Bacteria (test code = 52637-1) MANY NONE H [facility] NortheastUrine Epithelial Zqdgq1872-39-21 02:21:00 * Test Item Value Reference Range Interpretation Comments Urine Epithelial Cells (test code = 77444-9) FEW NONE [facility] NortheastU[facility] Cnaye8948-14-59 02:21:00* Test Item Value Reference Range Interpretation Comments Urine Mucus (test code = 8247-9) FEW RARE H [facility] NortheastUrine Brnqf7506-36-39 02:21:00* Test Item Value Reference Range Interpretation Comments Urine Yeast (test code = 13727-1) MANY NONE [facility] Xqvsh4442-37-41 02:21:00* Test Item Value Reference Range Interpretation Comments Urine Mucus (test code = 8247-9) FEW RARE H [facility] Pbmsf4745-62-78 02:21:00* Test Item Value Reference Range Interpretation Comments Urine Yeast (test code = 18260-3) MANY NONE [facility] Mngii7906-75-69 02:12:00* Test Item Value Reference Range Interpretation Comments Urine Color (test code = 5778-6) YELLOW YELLOW [facility] Twpnfsv5177-13-55 02:12:00* Test Item Value Reference Range Interpretation Comments Urine Clarity (test code = 09249-0) CLOUDY CLEAR [facility] CenterUrine Specific Mobionz9201-51-28 02:12:00 * Test Item Value Reference Range Interpretation Comments Urine Specific [place] (test code = 5811-5) 1.025 1.010-1.02 5 [facility] NortheastU[facility] tK7278-03-53 02:12:00* Test Item Value Reference Range Interpretation Comments Urine pH (test code = 21824-6) 5.5 5-7 [facility] Leukocyte Tyazibvq0450-03-69 02:12:00* Test Item Value Reference Range Interpretation Comments Urine Leukocyte Esterase (test code = 5799-2) 2+ NEGATIVE [facility] Dxtloml3443-19-62 02:12:00* Test Item Value Reference Range Interpretation Comments Urine Nitrite (test code = 91380-7) POSITIVE NEGATIVE [facility] Cidzwnc0771-76-81 02:12:00* Test Item Value Reference Range Interpretation Comments Urine Protein (test code = 5804-0) >=300 NEGATIVE [facility] Glucose (UA)2019-05-30 02:12:00* Test Item Value Reference Range Interpretation Comments Urine Glucose (UA) (test code = 2349-9) 1+ NEGATIVE H [facility] NortheastU[facility] Bxvbxfy6769-22-87 02:12:00* Test Item Value Reference Range Interpretation Comments Urine Ketones (test code = 75934-7) NEGATIVE [facility]GATIVE [facility] NortheastUrine Ollvjbgaxdsj0259-42-46 02:12:00* Test Item Value Reference Range Interpretation Comments Urine Urobilinogen (test code = 11515-7) 0.2 0.2-1 [facility] Ucpfnrrlk8641-90-78 02:12:00* Test Item Value Reference Range Interpretation Comments Urine Bilirubin (test code = 1978-6) NEGATIVE NEGATIVE [facility] Clwdx1147-90-75 02:12:00* Test Item Value Reference Range Interpretation Comments Urine Blood (test code = 14832-5) 4+ NEGATIVE H [facility] NortheastYeast detection in urine sediment by light ulwsekeafh7772-74-45 01:50:00* Test Item Value Reference Range Interpretation Comments Urine Yeast (test code = 59743-6) MANY NONE [facility] NortheastYeast detection in urine sediment by light upbrswzdyw5476-51-46 01:50:00* Test Item Value Reference Range Interpretation Comments Urine Yeast (test code = 24227-5) MANY NONE [facility] NortheastCHEST SINGLE (PORTABLE)2019-05-30 01:18:00 [place] [address] Patient Name: MANJIT LUO MR #: [id number] : 1980 Age/Sex: 38/M Req #: [id number] Adm Physician: Ordered by: MARIELLE MARSH MD Report #: [id number] Location: ER Room/Bed: Procedure: [id number] DX/CHEST SINGLE (PORTABLE) Exam Date: 05/30/19 Exam Time: 0050 REPORT STATUS: Sign ed EXAMINATION: CHEST SINGLE (PORTABLE) COMPARISON: Chest x-ray 04/23 INDICATION: fever [id number] Y DISCUSSION: Frontal view of the [...] COPY TO: BAYRON MARSH MD Lactic Acid Uaguq7645-25-74 01:08:00* Test Item Value Reference Range Interpretation Comments Lactic Acid Level (test code = Lactic Acid Level) 1.0 0.5- 2.0 [facility] NortheastL[facility] Acid Afrqr9985-41-70 01:08:00* Test Item Value Reference Range Interpretation Comments Lactic Acid Level (test code = Lactic Acid Level) 1.0 0.5- 2.0 [facility] NortheastCT ABDOMEN/PELVIS CG7323-29-40 01:06:00 [facility] [address] [place] [address] Patient Name: MANJIT LUO MR #: [id number] : 1980 Age/Sex: 38/M Req #: [id number] Adm Physician: Ordered by: MARIELLE MARSH MD Report #: [id number] Location: ER Room/Bed: Procedure: [id number] 0001 CT/CT ABDOMEN/PELVIS WO Exam Date: 05/30/19 Jeff nicole Time: 49 REPORT STATUS: Signed CT Abdomen [...] set by the Radiation Protocol Com mittee (RP). COMPARISON: Abdomen x-ray 05/20/2019. CT abdomen/pelvis 019 [...] MD Fluoroscopic procedure less than one hour agkwydps9357-33-09 00:23:00* Test Item Value Reference Range Interpretation Comments Lactic Acid Level (test code = Lactic Acid Level) 1.0 0.5- 2.0 [facility] NortheastC1Q class 1 & 2 jvtkaddx8857-58-77 15:06:51* Test Item Value Reference Range Interpretation Comments Case number (test code = 1137102) [id number] C1Q class 1 & 2 antibody (test code = 4027318) See emilee mckeon below for PDF Lab Report [facility] Ukabkkd0193-34-31 16:03:00* Test Item Value Reference Range Interpretation Comments Bedside Glucose (test code = 43056-4) 129 70-120 H Meter ID: [id number] [facility] 2019-05-20 11:54:00 [facility] [address] [place] [address] Patient Name: MANJIT LUO MR #: [id number] : 1980 Age/Sex: 38/M Req #: [id number] Adm Physician: ABHIJIT YODER MD Ordered by: ABHIJIT YODER MD Report #: [id number] Location: MED/SURG2 Room/Bed: [facility] Procedure: [id number] DX/AB GAMALIEL-AdamVIEW (KUB) Exam Date: 05/20/19 Exam Time: 105 [...] 11:57 AM Dictated By: KIM MENDEZ MD 5114 Transcribe d By: TIFFANY on 05/20/19 4857 COPY TO: ABHIJIT YODER MD Sodium Vmwpk8088-00-85 05:37:00* Test Item Value Reference Range Interpretation Comments Sodium Level (test code = 2951-2) 137 136-145 [facility] NortheastPotassium Xemlc0900-86-91 05:37:00* Test Item Value Reference Range Interpretation Comments Potassium Level (test code = 2823-3) 4.7 3.5-5.1 [facility] NortheastChloride Ieyrl0928-10-66 05:37:00* Test Item Value Reference Range Interpretation Comments Chloride Level (test code = 2075-0) 103 98-107 [facility] NortheastCarbon Dioxide Mhhyq3937-80-45 05:37:00* Test Item Value Reference Range Interpretation Comments Carbon Dioxide Level (test code = 2028-9) 27 22-29 [facility] NortheastAnion Wsb6732-46-04 05:37:00* Test Item Value Reference Range Interpretation Comments Anion Gap (test code = 42384-5) 11.7 8-16 [facility] NortheastBlood Urea Caasuoru4771-14-88 05:37:00* Test Item Value Reference Range Interpretation Comments Blood Urea Nitrogen (test code = 3094-0) 23 7-26 [facility] NortheastCreatinine2020-03-26 05:37:00* Test Item Value Reference Range Interpretation Comments Creatinine (test code = 2160-0) 3.50 0.72-1.25 H [facility] NortheastBUN/Creatinine Vjryz9081-18-94 05:37:00* Test Item Value Reference Range Interpretation Comments BUN/Creatinine Ratio (test code = 3097-3) 7 6-25 [facility] NortheastEstimat Glomerular Filtration Rate 2019-05-19 05:37:00* Test Item Value Reference Range Interpretation Comments Estimat Glomerular Filtration Rate (test code = 340240245) 20 >60 L Ranges were taken from the National Kidney Disease Education Program and the [facility] [employer] literature.Reference ranges:60 or greater: Sdlykp09-85 ( for 3 consecutive months): Chronic kidney disease 15 or less: Kidney failureMethodist Hospital NortheastGlucose Zilra4547-79-84 05:37:00* Test Item Value Reference Range Interpretation Comments Glucose Level (test code = RYW9873) 130 74-118 H [facility] NortheastCalcium Fgdsg6591-89-63 05:37:00* Test Item Value Reference Range Interpretation Comments Calcium Level (test code = 69854-7) 8.2 8.4-10.2 L [facility] NortheastWhite Blood Sdphv1731-60-69 09:35:00* Test Item Value Reference Range Interpretation Comments White Blood Count (test code = 6690-2) 4.21 4.8-10.8 L [facility] NortheastRed Blood Tznyd6434-42-13 09:35:00* Test Item Value Reference Range Interpretation Comments Red Blood Count (test code = 789-8) 3.61 4.3-5.7 L [facility] NortheastHemoglobin2020-03-25 09:35:00* Test Item Value Reference Range Interpretation Comments Hemoglobin (test code = 86570-9) 9.3 14.0-18.0 L [facility] NortheastHematocrit2020-03-25 09:35:00* Test Item Value Reference Range Interpretation Comments Hematocrit (test code = 4544-3) 30.1 38.2-49.6 L [facility] NortheastMean Corpuscular Rzzxlq2590-60-52 09:35:00* Test Item Value Reference Range Interpretation Comments Mean Corpuscular Volume (test code = 787-2) 83.4 81-99 [facility] NortheastMean Corpuscular Tthhvybwpa3506-18-87 09:35:00* Test Item Value Reference Range Interpretation Comments Mean Corpuscular Hemoglobin (test code = 785-6) 25.8 28-32 L [facility] NortheastMean Corpuscular Hemoglobin Concent 2019-05-18 09:35:00* Test Item Value Reference Range Interpretation Comments Mean Corpuscular Hemoglobin Concent (test code = 786-4) 30.9 31-35 L [facility] NortheastRed Cell Distribution Mpbmp5171-26-60 09:35:00* Test Item Value Reference Range Interpretation Comments Red Cell Distribution Width (test code = 82601-6) 14.6 11.7 -14.4 H [facility] NortheastPlatelet Xbjwn4757-00-59 09:35:00* Test Item Value Reference Range Interpretation Comments Platelet Count (test code = 777-3) 133 140-360 L [facility] NortheastNeutrophils (%) (Auto)2019-05-18 09:35:00 * Test Item Value Reference Range Interpretation Comments Neutrophils (%) (Auto) (test code = 91925-0) 59.3 38.7-80.0 [facility] NortheastLymphocytes (%) (Auto)2019-05-18 09:35:00 * Test Item Value Reference Range Interpretation Comments Lymphocytes (%) (Auto) (test code = 736-9) 29.5 18.0-39.1 [facility] NortheastMonocytes (%) (Auto)2019-05-18 09:35:00* Test Item Value Reference Range Interpretation Comments Monocytes (%) (Auto) (test code = 5905-5) 5.7 4.4-11.3 [facility] NortheastEosinophils (%) (Auto)2019-05-18 09:35:00 * Test Item Value Reference Range Interpretation Comments Eosinophils (%) (Auto) (test code = 713-8) 4.5 0.0-6.0 [facility] NortheastBasophils (%) (Auto)2019-05-18 09:35:00* Test Item Value Reference Range Interpretation Comments Basophils (%) (Auto) (test code = 706-2) 0.5 0.0-1.0 [facility] NortheastIM GRANULOCYTES %2019-05-18 09:35:00* Test Item Value Reference Range Interpretation Comments IM GRANULOCYTES % (test code = IM GRANULOCYTES %) 0.5 0.0- 1.0 [facility] NortheastNeutrophils # (Auto)2019-05-18 09:35:00* Test Item Value Reference Range Interpretation Comments Neutrophils # (Auto) (test code = 751-8) 2.5 2.1-6.9 [facility] NortheastLymphocytes # (Auto)2019-05-18 09:35:00* Test Item Value Reference Range Interpretation Comments Lymphocytes # (Auto) (test code = 74195-3) 1.2 1.0-3.2 [facility] NortheastMonocytes # (Auto)2019-05-18 09:35:00* Test Item Value Reference Range Interpretation Comments Monocytes # (Auto) (test code = 742-7) 0.2 0.2-0.8 [facility] NortheastEosinophils # (Auto)2019-05-18 09:35:00* Test Item Value Reference Range Interpretation Comments Eosinophils # (Auto) (test code = 711-2) 0.2 0.0-0.4 [facility] NortheastBasophils # (Auto)2019-05-18 09:35:00* Test Item Value Reference Range Interpretation Comments Basophils # (Auto) (test code = 704-7) 0.0 0.0-0.1 [facility] NortheastAbsolute Immature Granulocyte (auto 2019-05-18 09:35:00* Test Item Value Reference Range Interpretation Comments Absolute Immature Granulocyte (auto (shin t code = Absolute Immature Granulocyte (auto) 0.02 [address] [facility] laiqz5936-39-19 09:20:50* Test Item Value Reference Range Interpretation Comments SAB interpretation (test code = 5950) Additional antib tripp information: DP1=DPB1*01:01/DPA1*02:21XR2=ZGU5*05:01/DPA1*02:36KD5=XXH1*03:03/DQA1*02:01DR53= is a self-antigen SAB serum ID (test code = 5866) [id number] SAB serum collection D&T (test code = 5867) 05/03/2019 08:30 AM SAB class I antibody assignment (test code = 5870) Negative SAB cPRA class I (test code = 5868) 0 SAB class II antibody assignment (test code = 5871) DP1,DR10 ,DP5,DR53,DR51,DQ9 SAB cPRA class II (test code = 5869) 74 Case number (test code = 2557775) [id number] Single antigen beads (test code = 4604) See link below for PDF Lab Report [place] Maggy Rocrnta1196-64-77 08:02:00* Test Item Value Reference Range Interpretation Comments Urine Culture (test code = 630-4) No Result Data Provided [facility] Hxspjhz1153-99-30 08:02:00* Test Item Value Reference Range Interpretation Comments Urine Culture (test code = 630-4) No Result Data Provided [facility] Uonykis3055-62-67 08:02:00* Test Item Value Reference Range Interpretation Comments Urine Culture (test code = 630-4) No Result Data Provided [facility] NortheastABDOMEN-1VIEW (KUB)2019-05-16 13:43:00 [facility] [address] [place] [address] Patient Name: MANJIT LUO MR #: [id number] : 1980 Age/Sex: 38/M Req #: [id number] Adm Physician: ABHIJIT YODER MD Ordered by: FAIZA DOWNEY Report #: [id number] Location: MED/SURG2 Room/Bed: [facility] Procedure: [id number] DX/ABDOMEN-1VIEW (KUB) Exam Date: 05/16/19 Exam Cm [...] 134 5 COPY TO: FAIZA DOWNEY IR DRYTFGO3424-20-36 13:41:00 [place] [address] Patient Name: MANJIT LUO MR #: [id number] : 1980 Age/Sex: 38/M Req #: [id number] [facility] Physician: ABHIJIT YODER MD Ordered by: FAIZA DOWNEY Report #: [id number] Location: MED/SURG2 Room/Bed: 210 Procedure: [id number] DX/IR CONSULT Exam Date: Exam Time: REPORT STATUS: Signed Tunneled dialysis alonso ter insertion, 05/16/2019. History: Renal failure. Modality: Sonography and fluoroscopy. Sedation: Genny sed 1.0 mg and fentanyl 50 mcg was given intravenously for conscious sedation. Vital signs were monitored throughout the procedure by a nurse, and remained stable. Physician intra-service time was 15 its. Final Cigar And Box Examiner: Saloni. Free Lance Artist: None. Approach: Right internal jugular vein Estimated [...] needle into the right atrium. A 4 Tunisian micropuncture sheath was placed. A subcutaneous tunnel was created in the right anterior chest wall by blunt dissection. A 19 cm 14.5 Tunisian dialysis catheter was brought through the tunnel. [...] on 05/16/19 1343 COPY TO: FAIZA DOWNEY GUIDANCE FOR VASCULAR HCGOI4934-28-20 13:41:00 [place] [address] Patient Name: MANJIT LUO MR #: [id number] : 1980 Age/Sex: 38/M Req #: [id number] Adm Physician: ABHIJIT YODER MD Ordered by: FAIZA DOWNEY Report #: [id number] Location: MED/SURG2 Room/Bed: [facility] Procedure: [id number] US/US GUIDANCE FOR VASCULAR ACCES Exam Date: 05/16/19 Exam Time: 1225 REPORT STATUS: S igned Tunneled dialysis catheter insertion, 05/16/2019. History: Renal failure. Modality: Sonography and fluoroscopy. Sedation: Versed 1.0 mg and fentanyl 50 mcg was given intravenously for conscious sedation. Vital signs were monitored throughout the procedure by a nurse, and remained stable. Physician intra-service time was 15 its. Final Cigar And Box Examiner: Saloni. Free Lance Artist: None. Approach: Right internal jugular vein Estimated [...] into t he right atrium. A 4 Tunisian micropuncture sheath was placed. A subcutaneous t unnel was created in the right anterior chest wall by blunt dissection. A 19 cm 14.5 Tunisian dialysis catheter was brought through the tunnel. [...] on 05/16/19 1343 COPY TO: FAIZA DOWNEY TUNNELLED CVC INSERT W/O MQZS3742-35-46 13:41:00 [place] [address] Patient Name: MANJIT LUO MR #: [id number] : 1980 Age/Sex: 38/M Req #: [id number] Adm Physician: ABHIJIT YODER MD Ordered by: FAIZA DOWNEY Report #: [id number] [facility]: [facility] Room/Bed: [facility] Procedure: [id number] IR/TUNNELLED CVC INSERT W/O PORT Exam Date: Exam T sage: REPORT STATUS: Signed Tunn eled dialysis catheter insertion, 05/16/2019. History: Renal failure. Modality: Sonography and fluoroscopy. Sedation: Versed 1.0 mg and fentanyl 50 mcg was given intravenously for conscious sedation. Vital signs were monitored throughout the procedure by a nurse, and remained stable. Physician intra-service time was 15 its. Final Cigar And Box Examiner: Saloni. Free Lance Artist: None. Approach: Right internal jugular vein Estimated [...] into t he right atrium. A 4 Tunisian micropuncture sheath was placed. A subcutaneous t unnel was created in the right anterior chest wall by blunt dissection. A 19 cm 14.5 Tunisian dialysis catheter was brought through the tunnel. [...] TIFFANY on 05/16/191342 COPY TO: FAIZA DOWNEY Prothrombin Dcfd9808-20-15 10:37:00* Test Item Value Reference Range Interpretation Comments Prothrombin Time (test code = 5902-2) 16.2 11.9-14.5 H [facility] NortheastProthromb Time International Ratio 2019-05-16 10:37:00* Test Item Value Reference Range Interpretation Comments Prothromb Time International Ratio (test code = 6301-6) 1.22 Oral Anticoagulant Therapy INR Values:1. Low Intensity Therapy 1.5 - 2.02 . Moderate Intensity Therapy 2.0 - 3.03. High Intensity Therapy(1) 2.5 - 3. 54. High Intensity Therapy(2) 3.0 - 4.05. Panic Value INR > 5.0 [facility] NortheastTotal Kqhbpaqde6452-34-94 08:57:00* Test Item Value Reference Range Interpretation Comments Total Bilirubin (test code = 1975-2) 0.2 0.2-1.2 [facility] NortheastDirect Mwteanhzs8291-98-41 08:57:00* Test Item Value Reference Range Interpretation Comments Direct Bilirubin (test code = 73692-2) 0.1 0.0-0.5 [facility] NortheastAspartate Amino Transf (AST/SGOT) 2019-05-16 08:57:00* Test Item Value Reference Range Interpretation Comments Aspartate Amino Transf (AST/SGOT) (test code = Aspartate Amino Transf (AST/SGOT)) 40 5-34 H [facility] NortheastAlanine Aminotransferase (ALT/SGPT) 2019-05-16 08:57:00* Test Item Value Reference Range Interpretation Comments Alanine Aminotransferase (ALT/SGPT) (test code = 1742-6) 47 0-55 [facility] NortheastTotal Wxvfkqm1414-12-78 08:57:00* Test Item Value Reference Range Interpretation Comments Total Protein (test code = 2885-2) 8.5 6.5-8.1 H [facility] NortheastAlbumin2020-03-23 08:57:00* Test Item Value Reference Range Interpretation Comments Albumin (test code = 1751-7) 2.5 3.5-5.0 L [facility] NortheastAlkaline Zzjstmhkkpu7483-50-28 08:57:00* Test Item Value Reference Range Interpretation Comments Alkaline Phosphatase (test code = 6768-6) 437 40-150 H [facility] NortheastDirect Muaqxhhzc1844-62-78 08:57:00* Test Item Value Reference Range Interpretation Comments Direct Bilirubin (test code = 23316-9) 0.1 0.0-0.5 [facility] NortheastDirect Cogvxmydo6298-40-52 08:57:00* Test Item Value Reference Range Interpretation Comments Direct Bilirubin (test code = 49857-9) 0.1 0.0-0.[address] [facility] plasma conjugated bilirubin measurement (mass/volume)2019-05-16 05:00:00* Test Item Value Reference Range Interpretation Comments Direct Bilirubin (test code = 07813-3) 0.1 0.0-0.[address] [facility]er[facility] or plasma conjugated bilirubin measurement (mass/volume)2019-05-16 05:00:00* Test Item Value Reference Range Interpretation Comments Direct Bilirubin (test code = 49522-7) 0.1 0.0-0.5 [facility] NortheastMiscellaneous referral dcea1730-91-81 12:16:23* Test Item Value Reference Range Interpretation Comments [facility] [place] (test code = 2566) PTNT TAMASSEE Mis test result (test code = 1730) SEE NOTE Report Status: FINAL Prothrombin W28160T Mutation, B PTNT Interpretation This individual DOES NOT have the Prothrombin D86158G mutation. Although the Prothrombin F13927E mutation is absent, the individual may have other genetic and environmental risk factors for thrombosis. Consider genetic consultation and counseling of potentially affected family members regarding laboratory testing. ADDITIONAL INFORMATION This test is a direct mutation analysis using PCR amplification, signal generation and release by cleavage of sequence specific alleles ([employer], [employer], [place], [place])............... ..............................................Prothrombin C53292D Mutation, B Negative Reference Value: Negative............................................................PTNT Reviewed By DARRYL Oneil - - - - - - - - - - - - - - - - - - - - - - - - - - - - - -Laboratory Notes:This test has been modified from the mirror machine feeder'sinstructions. Its performance characteristics weredetermined by [facility] in a manner consistent with CLIArequirements. This test has not been cleared or approved bythe U.S. Food and Drug Administration.+ +: PERFORMING SITE LEGEND :+ +: : [facility] :: : [address] [place] [address] :+ + IGNACIO (test code = IGNACIO) Prothrombin T70589N Mutation [facility] Test ID: PTNTSource: Whole Blood [place] MethodistHepatitis B Surface Antibody, Srjdf2264-80-58 08:00:00* Test Item Value Reference Range Interpretation Comments Hepatitis B Surface Antibody, Quant (test code = 5194-6) <3.1 Immunity>9.9 L Status of Immunity Anti-HBs Level Inconsistent with Immunity 0.0 - 9.9Consistent with Immunity >9.9[facility] B Surface Hyxolnm0678-77-47 08:00:00* Test Item Value Reference Range Interpretation Comments Hepatitis B Surface Antigen (test code = 5196-1) Negative Negat stuart [facility] B Core IgM Rsgcmehi7886-08-50 08:00:00* Test Item Value Reference Range Interpretation Comments Hepatitis B Core IgM Antibody (test code = 15465-4) Negative Ne gative Performed at: - [facility] [id number] Director: Doc Bartlett MD, Phone: [phone] Hospital NortheastHecorona [facility] B Surface Antibody, Kldya9207-27-37 08:00:00* Test Item Value Reference Range Interpretation Comments Hepatitis B Surface Antibody, Quant (test code = 5194-6) <3.1 Immunity>9.9 L Status of Immunity Anti-HBs Level Inconsistent with Immunity 0.0 - 9.9Consistent with Immunity >9.9[facility] B Core IgM Woumzpag3071-07-58 08:00:00* Test Item Value Reference Range Interpretation Comments Hepatitis B Core IgM Antibody (test code = 17239-1) Negative Ne gative Performed at: - [facility] [id number] Director: Doc Bartlett MD, Phone: [phone] Hospital NortheastHepatitis B Surface Antibody, Ndjbo9560-98-37 08:00:00* Test Item Value Reference Range Interpretation Comments Hepatitis B Surface Antibody, Quant (test code = 5194-6) <3.1 Immunity>9.9 L Status of Immunity Anti-HBs Level Inconsistent with Immunity 0.0 - 9.9Consistent with Immunity >9.9[facility] IgM Dvpebogy0215-74-29 08:00:00* Test Item Value Reference Range Interpretation Comments Hepatitis B Core IgM Antibody (test code = 72709-8) Negative Ne gative Performed at: [facility] [id number] Director: Doc Bartlett MD, Phone: [phone] [place], [place] [address]erum hepatitis B virus surface antibody assay by radioimmunoassay (units/volume)2019-05-12 17:30:00* Test Item Value Reference Range Interpretation Comments Hepatitis B Surface Antibody, Quant (test code = 5194-6) <3.1 Immunity>9.9 Status of Immunity Anti-HBs Level Inconsistent with Immunity 0.0 - 9.9Consistent with Immunity >9.9[facility] Hospitaler[facility] or plasma hepatitis B virus core IgM antibody detection by mruwmuuzght6135-94-82 17:30:00* Test Item Value Reference Range Interpretation Comments Hepatitis B Core IgM Antibody (test code = 21110-0) Negative Ne gative Performed at: [facility] [id number] Director: Doc Bartlett MD, Phone: [phone] Trail Baptist Hospitalerum hepatitis B virus surface antibody assay by radioimmunoassay (units/volume)2019-05-12 17:30:00* Test Item Value Reference Range Interpretation Comments Hepatitis B Surface Antibody, Quant (test code = 5194-6) <3.1 Immunity>9.9 Status of Immunity Anti-HBs Level Inconsistent with Immunity 0.0 - 9.9Consistent with Immunity >9.9[facility] Hospitalerum or plasma hepatitis B virus core IgM antibody detection by uipidczpxjv3034-60-53 17:30:00* Test Item Value Reference Range Interpretation Comments Hepatitis B Core IgM Antibody (test code = 90919-0) Negative Ne gative Performed at: [facility] [id number] Director: Doc Bartlett MD, Phone: [phone] Hospital NortheastGlobulin2020-03-19 05:45:00* Test Item Value Reference Range Interpretation Comments Globulin (test code = 21160-1) 5.5 2.3-3.5 H [facility] NortheastAlbumin/Globulin Sgkbr8047-98-75 05:45:00 * Test Item Value Reference Range Interpretation Comments Albumin/Globulin Ratio (test code = 1759-0) 0.4 0.8-2.0 L [facility] NortheastBlood Pzyvzag4813-29-42 19:22:00* Test Item Value Reference Range Interpretation Comments Blood Culture (test code = 06229928) NO GROWTH AFTER 5 DAYS, FINAL REPORT [facility] NortheastLow resolution full typing by SSO 2019-05-11 10:19:06* Test Item Value Reference Range Interpretation Comments Interpretation (test code = 1091602) Note: HLA typing was performed by PCR-SSO DNA based procedures.Note: The serological phenotype is an interpretation based on molecular typing data. Case number (test code = 6662711) [id number] Low resolution full typing by SSO (test code = 1359) S ee link below for PDF Lab Report [place] OiahsxwpaUvfeemxi1178-64-73 06:07:00* Test Item Value Reference Range Interpretation Comments Ferritin (test code = 2276-4) 313.92 21.81-274.66 H [facility] NortheastFerritin2020-03-18 06:07:00* Test Item Value Reference Range Interpretation Comments Ferritin (test code = 2276-4) 313.92 21.81-274.66 H [facility] NortheastFerritin2020-03-18 06:07:00* Test Item Value Reference Range Interpretation Comments Ferritin (test code = 2276-4) 313.92 21.81-274.66 [facility] NortheastPhosphorus Oscoj0833-32-52 05:50:00* Test Item Value Reference Range Interpretation Comments Phosphorus Level (test code = VOR3076) 6.2 2.3-4.7 H [facility]2020-03-18 05:50:00* Test Item Value Reference Range Interpretation Comments Iron Level (test code = 2498-4) 38 65-175 [facility] Iron Binding Vjnsxxae3376-84-81 05:50:00* Test Item Value Reference Range Interpretation Comments Total Iron Binding Capacity (test code = 2500-7) 165 261-4 78 L [facility] NortheastPercent Iron Zmgheqqibb7822-42-87 05:50:00* Test Item Value Reference Range Interpretation Comments Percent Iron Saturation (test code = 2502-3) 23 15-50 [facility]2020-[facility] 05:50:00* Test Item Value Reference Range Interpretation Comments Transferrin (test code = 3034-6) 118 174-364 L [facility] Mtwhi8439-23-11 05:50:00* Test Item Value Reference Range Interpretation Comments Iron Level (test code = 2498-4) 38 65-175 [facility] Jyfzvvte8793-40-92 05:50:00* Test Item Value Reference Range Interpretation Comments Total Iron Binding Capacity (test code = 2500-7) 165 261-4 78 L [facility] NortheastPercent Iron Tjpcluhmmd2439-22-98 05:50:00* Test Item Value Reference Range Interpretation Comments Percent Iron Saturation (test code = 2502-3) 50 [facility]Transferrin2020-03-18 05:50:00* Test Item Value Reference Range Interpretation Comments Transferrin (test code = 3034-6) 118 174-364 L [facility] NortheastIron Zsajz6160-34-22 05:50:00* Test Item Value Reference Range Interpretation Comments Iron Level (test code = 2498-4) 38 65-175 L [facility] Iron Binding Hupdmvjo0691-11-52 05:50:00* Test Item Value Reference Range Interpretation Comments Total Iron Binding Capacity (test code = 2500-7) 165 261-4 78 L [facility] NortheastPercent Iron Gyxtkobxap1852-62-75 05:50:00* Test Item Value Reference Range Interpretation Comments Percent Iron Saturation (test code = 2502-3) [facility]2020-[facility] 05:50:00* Test Item Value Reference Range Interpretation Comments Transferrin (test code = 3034-6) 118 174-[address] [facility] (mass/volume)2019-05-11 04:50:00* Test Item Value Reference Range Interpretation Comments Iron Level (test code = 2498-4) 38 65-[address] [facility] iron binding capacity measurement (mass/volume)2019-05-11 04:50:00* Test Item Value Reference Range Interpretation Comments Total Iron Binding Capacity (test code = 2500-7) 165 261-[address] [facility] iron saturation measurement (mass fraction)2019-05-11 04:50:00* Test Item Value Reference Range Interpretation Comments Percent Iron Saturation (test code = 2502-3) [address] [facility] plasma transferrin measurement (mass/volume)2019-05-11 04:50:00* Test Item Value Reference Range Interpretation Comments Transferrin (test code = 3034-6) 118 174-[address] [facility] ferritin measurement (mass/volume)2019-05-11 04:50:00* Test Item Value Reference Range Interpretation Comments Ferritin (test code = 2276-4) 313.92 21.81-274.[address] [facility] iron measurement (mass/volume)2019-05-11 04:50:00* Test Item Value Reference Range Interpretation Comments Iron Level (test code = 2498-4) 38 65-[address] [facility] iron binding capacity measurement (mass/volume)2019-05-11 04:50:00* Test Item Value Reference Range Interpretation Comments Total Iron Binding Capacity (test code = 2500-7) 165 261-[address] [facility] iron saturation measurement (mass fraction)2019-05-11 04:50:00* Test Item Value Reference Range Interpretation Comments Percent Iron Saturation (test code = 2502-3) 23 15-[address] [facility] transferrin measurement (mass/volume)2019-05-11 04:50:00* Test Item Value Reference Range Interpretation Comments Transferrin (test code = 3034-6) 118 174-[address] [facility] ferritin measurement (mass/volume)2019-05-11 04:50:00* Test Item Value Reference Range Interpretation Comments Ferritin (test code = 2276-4) 313.92 21.81-274.66 [facility]Bacterial urine mjhjbgd9199-47-48 15:50:00* Test Item Value Reference Range Interpretation Comments Urine Culture (test code = 630-4) YEAST SPECIES [facility] NortheastUrine Jcyjxij6910-91-02 07:34:00* Test Item Value Reference Range Interpretation Comments Urine Culture (test code = 630-4) No Result Data Provided [facility] NortheastHemoglobin A1c Ccnucon1417-73-24 20:19:00 * Test Item Value Reference Range Interpretation Comments Hemoglobin A1c Percent (test code = Hemoglobin A1c Percent) 5.2 4.0-7.0 [facility] NortheastHemoglobin A1c Nwkolxy5741-75-62 20:19:00 * Test Item Value Reference Range Interpretation Comments Hemoglobin A1c Percent (test code = Hemoglobin A1c Percent) 5.2 4.0-7.0 [facility] NortheastHem[facility] A1c Swftldb1091-55-40 20:19:00 * Test Item Value Reference Range Interpretation Comments Hemoglobin A1c Percent (test code = Hemoglobin A1c Percent) 5.2 4.0-7.0 [facility] NortheastFr Rkjeodsgj6969-18-40 19:42:00* Test Item Value Reference Range Interpretation Comments Free Thyroxine (test code = 3024-7) 0.79 0.8-1.8 L [facility] NortheastThyroid Stimulating Hormone (TSH) 2019-05-08 19:42:00* Test Item Value Reference Range Interpretation Comments Thyroid Stimulating Hormone (TSH) (test code = 18648-0) 1.669 0.350-4.940 [facility] NortheastFree Xjzkvkhgk4607-74-55 19:42:00* Test Item Value Reference Range Interpretation Comments Free Thyroxine (test code = 3024-7) 0.79 0.8-1.8 L [facility] NortheastThyroid Stimulating Hormone (TSH) 2019-05-08 19:42:00* Test Item Value Reference Range Interpretation Comments Thyroid Stimulating Hormone (TSH) (test code = 25821-8) 1.669 0.350-4.940 [facility] NortheastFr Ydwsajlea4099-42-97 19:42:00* Test Item Value Reference Range Interpretation Comments Free Thyroxine (test code = 3024-7) 0.79 0.8-1.8 L [facility] NortheastThyroid Stimulating Hormone (TSH) 2019-05-08 19:42:00* Test Item Value Reference Range Interpretation Comments Thyroid Stimulating Hormone (TSH) (test code = 80451-3) 1.669 0.350-4.940 [facility] NortheastFluoroscopic procedure less than one hour uynkfwfe3157-38-44 18:10:00* Test Item Value Reference Range Interpretation Comments Hemoglobin A1c Percent (test code = Hemoglobin A1c Percent) 5.2 4.0-7.[address] [facility] thyroxine (T4) free measurement (mass/volume)2019-05-08 18:10:00* Test Item Value Reference Range Interpretation Comments Free Thyroxine (test code = 3024-7) 0.79 0.8-1.[address] [facility] thyrotropin measurement by detection limit <= 0.005 miu/l (units/volume)2019-05-08 18:10:00* Test Item Value Reference Range Interpretation Comments Thyroid Stimulating Hormone (TSH) (test code = 03609-3) 1.669 0.350-4.940 [facility] NortheastFluoroscopic procedure less than one hour exoewfig7851-23-13 18:10:00* Test Item Value Reference Range Interpretation Comments Hemoglobin A1c Percent (test code = Hemoglobin A1c Percent) 5.2 4.0-7.[address] [facility] thyroxine (T4) free measurement (mass/volume)2019-05-08 18:10:00* Test Item Value Reference Range Interpretation Comments Free Thyroxine (test code = 3024-7) 0.79 0.8-1.[address] [facility] thyrotropin measurement by detection limit <= 0.005 miu/l (units/volume)2019-05-08 18:10:00* Test Item Value Reference Range Interpretation Comments Thyroid Stimulating Hormone (TSH) (test code = 62964-7) 1.669 0.350-4.940 [facility] NortheastUrine PGJ0173-47-79 20:28:00* Test Item Value Reference Range Interpretation Comments Urine WBC (test code = 5821-4) 11-20 0-5 H [facility] NortheastU[facility] SOV5671-79-83 20:28:00* Test Item Value Reference Range Interpretation Comments Urine RBC (test code = 07732-7) 6-10 0-5 H [facility] NortheastU[facility] Lftxavxu6389-84-41 20:28:00* Test Item Value Reference Range Interpretation Comments Urine Bacteria (test code = 16647-3) MANY NONE H [facility] NortheastU[facility] Epithelial Sokfo6228-48-17 20:28:00 * Test Item Value Reference Range Interpretation Comments Urine Epithelial Cells (test code = 58171-7) RARE NONE [facility] NortheastU[facility] Yqqrr1371-20-27 20:12:00* Test Item Value Reference Range Interpretation Comments Urine Color (test code = 5778-6) YELLOW YELLOW [facility] NortheastU[facility] Jitktfo2805-15-77 20:12:00* Test Item Value Reference Range Interpretation Comments Urine Clarity (test code = 72044-2) CLOUDY CLEAR H [facility] NortheastU[facility] Specific Gkcrhgy5204-01-86 20:12:00 * Test Item Value Reference Range Interpretation Comments Urine Specific [place] (test code = 5811-5) 1.020 1.010-1.02 5 [facility] nO9106-07-30 20:12:00* Test Item Value Reference Range Interpretation Comments Urine pH (test code = 38630-1) 5.5 5-7 [facility] Leukocyte Pxkuitnt7668-35-80 20:12:00* Test Item Value Reference Range Interpretation Comments Urine Leukocyte Esterase (test code = 5799-2) LARGE NEGATIVE [facility] Ylrkesl3101-61-35 20:12:00* Test Item Value Reference Range Interpretation Comments Urine Nitrite (test code = 50481-8) POSITIVE NEGATIVE H [facility] NortheastU[facility] Cemhtra0172-09-54 20:12:00* Test Item Value Reference Range Interpretation Comments Urine Protein (test code = 5804-0) >=300 NEGATIVE [facility] Glucose (UA)2019-05-06 20:12:00* Test Item Value Reference Range Interpretation Comments Urine Glucose (UA) (test code = 2349-9) 1+ NEGATIVE H [facility] Hxwoavv2956-95-05 20:12:00* Test Item Value Reference Range Interpretation Comments Urine Ketones (test code = 08694-5) NEGATIVE NEGATIVE [facility] Gxwmccfmawep0429-11-76 20:12:00* Test Item Value Reference Range Interpretation Comments Urine Urobilinogen (test code = 00936-8) 0.2 0.2-1 [facility] Ktswnczsw1394-69-92 20:12:00* Test Item Value Reference Range Interpretation Comments Urine Bilirubin (test code = 1978-6) NEGATIVE NEGATIVE [facility] Rjkvl2310-66-38 20:12:00* Test Item Value Reference Range Interpretation Comments Urine Blood (test code = 49868-5) MODERATE NEGATIVE [facility] NortheastInfluenza Virus Types A,B Antigen 2019-05-06 19:44:00* Test Item Value Reference Range Interpretation Comments Influenza Virus Types A,B Antigen (test code = 04871-9) NEGATIVE NEGATIVE [facility] NortheastInflu[facility] Virus Types A,B Antigen 2019-05-06 19:44:00* Test Item Value Reference Range Interpretation Comments Influenza Virus Types A,B Antigen (test code = 15362-8) NEGATIVE NEGATIVE [facility] NortheastInfluenza Virus Types A,B Antigen 2019-05-06 19:44:00* Test Item Value Reference Range Interpretation Comments Influenza Virus Types A,B Antigen (test code = 38727-0) NEGATIVE NEGATIVE [facility] NortheastLactic Acid Wgmht8988-11-62 19:41:00* Test Item Value Reference Range Interpretation Comments Lactic Acid Level (test code = Lactic Acid Level) 0.8 0.5- 2.0 [facility] NortheastCHEST 2 KINHP7702-51-56 19:37:00 [place] [address] Patient Name: MANJIT LUO MR #: [id number] : 1980 Age/Sex: 38/M Req #: [id number] Adm Physician: 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 Report #: [id number] Location: ER Room/Bed: Procedure: [id number] DX/CHEST 2 VIEWS Exam Date: Exam Time: [...] TO: JC CATES NP Group A Streptococcus Xdtfkk0950-66-84 19:35:00* Test Item Value Reference Range Interpretation Comments Group A Streptococcus Screen (test code = 22020-4) NEGATIVE [facility]G ATIVE [facility] NortheastGroup A Streptococcus Cvhmzd0058-49-14 19:35:00* Test Item Value Reference Range Interpretation Comments Group A Streptococcus Screen (test code = 34331-0) NEGATIVE [facility]G ATIVE [facility] NortheastGroup A Streptococcus Wdwmnd6141-78-98 19:35:00* Test Item Value Reference Range Interpretation Comments Group A Streptococcus Screen (test code = 79118-1) NEGATIVE [facility]G ATIVE [facility] NortheastInfluenza virus A and B antigen identification by trnkziauxynowkzyub8137-74-51 19:03:00* Test Item Value Reference Range Interpretation Comments Influenza Virus Types A,B Antigen (test code = 58350-5) NEGATIVE NEGATIVE [facility] antigen detection in uzkumm3496-12-35 19:03:00* Test Item Value Reference Range Interpretation Comments Group A Streptococcus Screen (test code = 76062-3) NEGATIVE NEG ATIVE [facility] NortheastInfluenza virus A and B antigen identification by vdhhaaddqjjuxlxctr5885-97-52 19:03:00* Test Item Value Reference Range Interpretation Comments Influenza Virus Types A,B Antigen (test code = 68051-7) NEGATIVE NEGATIVE [facility] pyogenes antigen detection in vbgrtt4197-37-20 19:03:00* Test Item Value Reference Range Interpretation Comments Group A Streptococcus Screen (test code = 47844-3) NEGATIVE NEG [facility] P1833-33-81 15:25:13* Test Item Value Reference Range Interpretation Comments Functional protein C (test code = 90902-9) 56 % 70-165 L Low Protein C Activity and prolonged Prothrombin time consistent with vitamin K deficiency, warfarin therapy or liver disease. Recommend repeating Protein C when PT is normal.Reviewed by Huan Keita MD, PhD. Lab Interpretation (test code = 98066-7) Abnormal [place] MethodistFunctional protein X8415-74-37 10:14:15* Test Item Value Reference Range Interpretation Comments Functional protein S (test code = 19951-2) 91 % 74-160 Functional Protein S performed. If result is decreased Total and Free Protein S Antigen will be performed. [place] MethodistLupus anticoagulant wuwgs5454-03-41 09:56:20* Test Item Value Reference Range Interpretation Comments Prothrombin time (test code = 5902-2) 15.9 11.5- 14.5 sec H INR (test code = 69539-9) 1.3 Th e International Normalized Ratio (INR) is a therapeutic monitoring tool for patients who are stable on oral anticoagulant therapy. An INR of 2.0-3.0 is suggested for deep vein thrombosis/pulmonary embolism. PTT (test code = 06102-6) 34.0 23.0- 36.0 sec PTT therapeutic range for unfractionated heparin is61.0-112.0 seconds which corresponds to Anti-Xa0.3-0.7 U/ml. PTT lupus anticoagulant (test code = 33975-0) 36.1 27.0- 38 .0 sec Lupus anticoagulant [...] instructions. The performance characteristics were determined by [facility] in a manner consistent with CLIA requirements. This test has not been cleared or approved by the U.S. Food and Drug Administration. Lab Interpretation (test code = 17129-5) Abnormal [facility] V-DPSP9727-06AYOO3412-38-89 14:35:16* Test Item Value Reference Range Interpretation [...] NOT RECOMMENDED FOR USE WITH T=SPOT.TB TEST.Performed by:[facility] Molecular Tuberculosis Laboratory [facility] ([id number])[place], [place] [address] [place] [address] type 1/2 combined Ab, JcW7361-03-90 13:16:14* Test Item Value Reference Range Interpretation Comments HSV 1/2 combined Ab, IgM (test code = 81183-2) 0.71 <=0.89 IV INTERPRETIVE INFORMATION: Herpes Simplex [...] for more than 12 months post-infection.Performed by [facility],[address] [place] [id number] fiy[employer], Trung Boyer MD, Lab. Director [facility] MethodistCytomegalovirus Ab, IuR7065-81-90 21:16:52* Test Item Value Reference Range Interpretation Comments Cytomegalovirus Ab, IgM (test code = 4551325) Negative Negative [facility] MethodistHLA autologous fcsfrjbsbh0591-95-26 20:52:48* Test Item Value Reference Range Interpretation Comments AXL source (test code = 5891) Peripheral Blood AXL current serum ID (test code = 5892) [id number] [facility] serum collection D&T (test code = 5893) 05/03/2019 08:30 AM [facility] flow XM T cell result, current (test code = 5894) Negative [facility] flow XM B cell result, current (test code = 5895) Negative Case number (test code = 0121907) [id number] HLA autologous crossmatch (test code = 1090) See link below for PDF Lab Report [place] MethodistHomocystine, chbmdq0812-43-45 12:03:28* Test Item Value Reference Range Interpretation Comments Homocysteine (test code = 89168-9) 17.5 umol/L 0-15 H The risk for coronary vascular disease increases progressively with homocysteine concentration. A 3.4 times greater risk is associated with a homocysteine concentration of greater than 15.8 umol/L as compared to a concentration below 14.1 umol/L. Lab Interpretation (test code = 54290-1) Abnormal [place] MethodistHSV 1 & 2 glycoprotein G Ab, YyT6826-52-47 11:09:49* Test Item Value Reference Range Interpretation Comments HSV 1 glycoprotein G Ab, IgG (test code = 06971-2) Negative Neg ative Negative: No IgG antibodies to HSV1 detected. HSV 2 glycoprotein G Ab, IgG (test code = 89705-7) Negative Neg ative Negative: No IgG antibodies to HSV2 detected. [facility] MethodistCytomegalovirus Ab, TpZ6608-12-66 11:09:11* Test Item Value Reference Range Interpretation Comments Cytomegalovirus Ab, IgG (test code = 25818-5) Positive Negative A Positive; IgG antibody to CMV detected which may indicateexposure to CMV infection. Lab Interpretation (test code = 04316-9) Abnormal [place] MethodistEpstein-Vee virus antibody giwq1816-86-74 11:08:37* Test Item Value Reference Range Interpretation Comments EBV Ab to viral capsid Ag, IgG (test code = 03614-8) Positive N egative A EBV Ab to viral capsid Ag, IgM (test code = 12850-4) Negative N egative EBV Ab to nuclear Ag, IgG (test code = 7883-2) Positive Negativ e A EBV Ab to early (D) Ag, IgG (test code = 55496-4) Negative Nega tive Helder-Vee virus antibody interpretation (test code = 5466) SEE C OMMENT Infection Status: Results may suggest past EBV infection. Lab Interpretation (test code = 45423-1) Abnormal [place] MethodistParathyroid bgfeqla9560-75-06 10:15:05* Test Item Value Reference Range Interpretation Comments PTH (test code = 2731-8) 507 pg/mL 15-65 H Lab Interpretation (test code = 79481-5) Abnormal [place] MethodistAntithrombin III hxvdy0766-96-54 10:06:44* Test Item Value Reference Range Interpretation Comments Antithrombin III (test code = 3174-0) 81 % 80-130 [place] MethodistABORh - vqhywewwrs9709-91-67 09:58:00* Test Item Value Reference Range Interpretation Comments ABO grouping (test code = 883-9) O Rh type (test code = 07784-9) POS [place] YednsoysyVoneiftwqx1789-29-07 09:52:47* Test Item Value Reference Range Interpretation Comments Fibrinogen (test code = 86878-5) 627 mg/dL 200-450 H Lab Interpretation (test code = 90639-5) Abnormal [place] SgztowpybBnhkqfdhuxg8818-34-37 09:41:25* Test Item Value Reference Range Interpretation Comments Cholesterol (test code = 2093-3) 86 mg/dL <200 [place] MethodistCreatinine shkml8683-05-44 09:41:25* Test Item Value Reference Range Interpretation Comments Creatinine (test code = 2160-0) 4.40 mg/dL 0.7-1.2 H Lab Interpretation (test code = 69302-6) Abnormal [place] GrrwepzelBFX2514-18-79 09:41:25* Test Item Value Reference Range Interpretation Comments LDH (test code = 09436-1) 235 U/L 87-225 H Lab Interpretation (test code = 06105-3) Abnormal [place] TpkycendjQangabgecjrli6303-98-76 09:41:25* Test Item Value Reference Range Interpretation Comments Triglycerides (test code = 2571-8) 103 mg/dL <150 [place] MethodistAmylase iatpk1947-90-57 09:41:24* Test Item Value Reference Range Interpretation Comments Amylase (test code = 1798-8) 46 U/L 28-100 [place] MethodistGlucose mjiyr8475-32-06 09:41:24* Test Item Value Reference Range Interpretation Comments Glucose (test code = 2345-7) 146 mg/dL 65-99 H Lab Interpretation (test code = 32828-0) Abnormal [place] MethodistPhosphorus lpwjq8836-21-28 09:41:24* Test Item Value Reference Range Interpretation Comments Phosphorus (test code = 2777-1) 4.6 mg/dL 2.4-4.5 H Lab Interpretation (test code = 63676-4) Abnormal [place] MethodistCT Abdomen Pelvis Wo Ygzefuex6421-41-32 09:37:13Hm Interface, Radiology Results 05/03/2019 9:40 AM [...] inguinal lymph nodes, nonspecific though may be reactive.[id number] [place] [facility] Chest 2 Ns2457-93-97 09:36:57Hm Interface, Radiology Results - 05/03/2019 9:40 [...] present.Visualized skeletal structures demonstrate no definite abnormality.Negative examination.H-2OL66155YVFhooaqp MethodistHGB CIU1242-22-69 16:24:00* Test Item Value Reference Range Interpretation Comments HEMOGLOBIN (test code = HGB) 8.1 gm/dL 13.0-17.0 L HEMATOCRIT (test code = HCT) 25.8 % 36.0-48.0 L LAQZVYZH8212-39-24 16:47:00* Test Item Value Reference Range Interpretation Comments FERRITIN (test code = CHANELLE) 374 ng/mL 23.9-336.2 H HGB RWM3782-30-86 15:41:00* Test Item Value Reference Range Interpretation Comments HEMOGLOBIN (test code = HGB) 8.0 gm/dL 13.0-17.0 L HEMATOCRIT (test code = HCT) 24.8 % 36.0-48.0 LL BASIC METABOLIC HILLP6035-97-28 18:42:00* Test Item Value Reference Range Interpretation [...] code = CA) 6.3 mg/dl 8.0-10.5 L HKEAJFZZZMC7968-65-56 18:42:00* Test Item Value Reference Range Interpretation Comments PHOSPHOROUS (test code = PHOS) 6.1 mg/dl 2.5-4.9 H URIC QNNM6005-31-57 18:42:00* Test Item Value Reference Range Interpretation Comments URIC ACID (test code = URIC) 8.7 mg/dl 2.6-7.2 H DHVKOUNBL8183-63-91 18:42:00* Test Item Value Reference Range Interpretation [...] = FESAT) 19 % 15-50 N URINALYSIS HGXMBBWY6292-89-32 17:35:00* Test Item Value Reference Range Interpretation [...] code = BACU) MOD NONE UR PROTEIN/CREATININE XPLYG1580-21-99 17:35:00* Test Item Value Reference Range Interpretation Comments UR PROTEIN RESULT (test code = PROTU) 421.0 MG/DL 0-15.0 H UR CREATININE RESULT (test code = CREATU) 72.88 MG/DL 30-125 N PROTEIN/CREATININE RATIO (test code = P/CRATIO) 5.0 mg/g cre 0-200 N CBC W/AUTO CHIM1647-04-70 17:25:00* Test Item Value Reference Range Interpretation [...] = BA#) 0.0 K/mm3 0.0-0.2 N URINALYSIS ZNTCZRBL2927-93-25 17:24:00* Test Item Value Reference Range Interpretation [...] code = BACU) MOD NONE UR PROTEIN/CREATININE GFXPD7759-57-87 17:24:00* Test Item Value Reference Range Interpretation Comments UR PROTEIN RESULT (test code = PROTU) MG/DL 0-15.0 UR CREATININE RESULT (test code = CREATU) MG/DL 30-125 PROTEIN/CREATININE RATIO (test code = P/CRATIO) mg/g cre 0-200 URINALYSIS CEJZERYR9402-58-52 17:23:00* Test Item Value Reference Range Interpretation [...] (test code = BACU) NONE UR PROTEIN/CREATININE VWDZQ1092-45-24 17:23:00* Test Item Value Reference Range Interpretation Comments UR PROTEIN RESULT (test code = PROTU) MG/DL 0-15.0 UR CREATININE RESULT (test code = CREATU) MG/DL 30-125 PROTEIN/CREATININE RATIO (test code = P/CRATIO) mg/g cre 0-200 Sodium Ypljt6988-83-26 00:38:00* Test Item Value Reference Range Interpretation Comments Sodium Level (test code = 2951-2) 137 136-145 [facility]Pot[facility] Gqsjf3964-97-22 00:38:00* Test Item Value Reference Range Interpretation Comments Potassium Level (test code = 2823-3) 5.0 3.5-5.1 [facility] NortheastChloride Vnsin0982-50-68 00:38:00* Test Item Value Reference Range Interpretation Comments Chloride Level (test code = 2075-0) 116 98-107 H [facility] NortheastCarbon Dioxide Cxpdl6260-85-90 00:38:00* Test Item Value Reference Range Interpretation Comments Carbon Dioxide Level (test code = 2028-9) 13 22-29 L [facility] NortheastAnion Ukd9150-18-09 00:38:00* Test Item Value Reference Range Interpretation Comments Anion Gap (test code = 39029-8) 13.0 8-16 [facility] NortheastBlood Urea Qqvvbzme1039-56-19 00:38:00* Test Item Value Reference Range Interpretation Comments Blood Urea Nitrogen (test code = 3094-0) 42 7-26 [facility] 00:38:00* Test Item Value Reference Range Interpretation Comments Creatinine (test code = 2160-0) 4.16 0.72-1.25 [facility]/Creatinine Jbmfk7417-97-54 00:38:00* Test Item Value Reference Range Interpretation Comments BUN/Creatinine Ratio (test code = 3097-3) 10 6-25 [facility] Glomerular Filtration Rate 2019-03-21 00:38:00* Test Item Value Reference Range Interpretation Comments Estimat Glomerular Filtration Rate (test code = 715675713) 16 >60 L Ranges were taken from the National Kidney Disease Education Program and the [facility] [place] [employer] literature.Reference ranges:60 or greater: Krpnnw47-48 ( for 3 consecutive months): Chronic kidney disease 15 or less: Kidney failureMethodist [facility] NortheastGlucose Auyrx6418-78-32 00:38:00* Test Item Value Reference Range Interpretation Comments Glucose Level (test code = QBJ2678) 172 74-118 [facility]Calcium Ehlei0760-31-00 00:38:00* Test Item Value Reference Range Interpretation Comments Calcium Level (test code = 20913-2) 6.6 8.4-10.2 LL Results repeated and called to MICHAEL MONTGOMERY RN at 0037 on 03/21/19 by Wandy branch Read back and verified.[facility]White Blood Febbz6874-25-15 00:36:00* Test Item Value Reference Range Interpretation Comments White Blood Count (test code = 6690-2) 5.55 4.8-10.8 [facility] Blood Krbyo0356-94-44 00:36:00* Test Item Value Reference Range Interpretation Comments Red Blood Count (test code = 789-8) 2.73 4.3-5.7 L [facility]Hemoglobin2020-01-27 00:36:00* Test Item Value Reference Range Interpretation Comments Hemoglobin (test code = 03534-7) 7.4 14.0-18.0 L [facility]Hematocrit2020-01-27 00:36:00* Test Item Value Reference Range Interpretation Comments Hematocrit (test code = 4544-3) 23.3 38.2-49.6 L [facility] NortheastMean Corpuscular Hldmns2063-55-74 00:36:00* Test Item Value Reference Range Interpretation Comments Mean Corpuscular Volume (test code = 787-2) 85.3 81-99 [facility]Mean Corpuscular Fxekvzbpyc1736-74-12 00:36:00* Test Item Value Reference Range Interpretation Comments Mean Corpuscular Hemoglobin (test code = 785-6) 27.1 28-32 L [facility] NortheastMean Corpuscular Hemoglobin Concent 2019-03-21 00:36:00* Test Item Value Reference Range Interpretation Comments Mean Corpuscular Hemoglobin Concent (test code = 786-4) 31.8 31-35 [facility] NortheastRed Cell Distribution Oiczw9029-03-85 00:36:00* Test Item Value Reference Range Interpretation Comments Red Cell Distribution Width (test code = 61955-2) 14.7 11.7 -14.4 H [facility] NortheastPlatelet Kngei7235-16-58 00:36:00* Test Item Value Reference Range Interpretation Comments Platelet Count (test code = 777-3) 187 140-360 [facility]Neutrophils (%) (Auto)2019-03-21 00:36:00 * Test Item Value Reference Range Interpretation Comments Neutrophils (%) (Auto) (test code = 04777-5) 68.1 38.7-80.0 [facility] NortheastLymphocytes (%) (Auto)2019-03-21 00:36:00 * Test Item Value Reference Range Interpretation Comments Lymphocytes (%) (Auto) (test code = 736-9) 19.8 18.0-39.1 [facility]Monocytes (%) (Auto)2019-03-21 00:36:00* Test Item Value Reference Range Interpretation Comments Monocytes (%) (Auto) (test code = 5905-5) 9.2 4.4-11.3 [facility]Eosinophils (%) (Auto)2019-03-21 00:36:00 * Test Item Value Reference Range Interpretation Comments Eosinophils (%) (Auto) (test code = 713-8) 1.6 0.0-6.0 [facility]Basophils (%) (Auto)2019-03-21 00:36:00* Test Item Value Reference Range Interpretation Comments Basophils (%) (Auto) (test code = 706-2) 0.4 0.0-1.0 [facility] NortheastIM GRANULOCYTES %2019-03-21 00:36:00* Test Item Value Reference Range Interpretation Comments IM GRANULOCYTES % (test code = IM GRANULOCYTES %) 0.9 0.0- 1.0 [facility]Neutrophils # (Auto)2019-03-21 00:36:00* Test Item Value Reference Range Interpretation Comments Neutrophils # (Auto) (test code = 751-8) 3.8 2.1-6.9 [facility] NortheastLymphocytes # (Auto)2019-03-21 00:36:00* Test Item Value Reference Range Interpretation Comments Lymphocytes # (Auto) (test code = 62570-7) 1.1 1.0-3.2 [facility]Monocytes # (Auto)2019-03-21 00:36:00* Test Item Value Reference Range Interpretation Comments Monocytes # (Auto) (test code = 742-7) 0.5 0.2-0.8 [facility]Eosinophils # (Auto)2019-03-21 00:36:00* Test Item Value Reference Range Interpretation Comments Eosinophils # (Auto) (test code = 711-2) 0.1 0.0-0.4 [facility]Basophils # (Auto)2019-03-21 00:36:00* Test Item Value Reference Range Interpretation Comments Basophils # (Auto) (test code = 704-7) 0.0 0.0-0.1 [facility] NortheastAbsolute Immature Granulocyte (auto 2019-03-21 00:36:00* Test Item Value Reference Range Interpretation Comments Absolute Immature Granulocyte (auto (shin t code = Absolute Immature Granulocyte (auto) 0.05 0-0.1 [facility] NortheastUrine XTB2980-63-55 00:27:00* Test Item Value Reference Range Interpretation Comments Urine WBC (test code = 5821-4) >50 0-5 H [facility] NortheastU[facility] VNO6060-94-75 00:27:00* Test Item Value Reference Range Interpretation Comments Urine RBC (test code = 15257-5) >50 0-5 H [facility] NortheastU[facility] Brwzjmkv1217-00-65 00:27:00* Test Item Value Reference Range Interpretation Comments Urine Bacteria (test code = 28920-4) MANY NONE [facility] NortheastU[facility] Epithelial Mptzk2205-93-54 00:27:00 * Test Item Value Reference Range Interpretation Comments Urine Epithelial Cells (test code = 30491-5) FEW NONE [facility] Vhhnk3086-51-05 00:19:00* Test Item Value Reference Range Interpretation Comments Urine Color (test code = 5778-6) REMEDIOS YELLOW H [facility] NortheastUrine Oyhclwv8933-06-40 00:19:00* Test Item Value Reference Range Interpretation Comments Urine Clarity (test code = 76769-0) CLOUDY CLEAR H [facility] NortheastUrine Specific Hefimsn5887-80-40 00:16:00 * Test Item Value Reference Range Interpretation Comments Urine Specific [place] (test code = 5811-5) 1.025 1.010-1.02 5 [facility] xN1543-55-73 00:16:00* Test Item Value Reference Range Interpretation Comments Urine pH (test code = 91721-0) 6.5 5-7 [facility] Leukocyte Nutydeub6440-11-02 00:16:00* Test Item Value Reference Range Interpretation Comments Urine Leukocyte Esterase (test code = 5799-2) 2+ NEGATIVE H [facility] NortheastU[facility] Vogxxsz8850-22-50 00:16:00* Test Item Value Reference Range Interpretation Comments Urine Nitrite (test code = 79348-6) POSITIVE NEGATIVE H [facility] NortheastU[facility] Irihlco6423-95-37 00:16:00* Test Item Value Reference Range Interpretation Comments Urine Protein (test code = 5804-0) 3+ NEGATIVE H [facility] Glucose (UA)2019-03-21 00:16:00* Test Item Value Reference Range Interpretation Comments Urine Glucose (UA) (test code = 2349-9) 1+ NEGATIVE H [facility] NortheastU[facility] Zsyspqu1088-32-68 00:16:00* Test Item Value Reference Range Interpretation Comments Urine Ketones (test code = 81866-5) NEGATIVE NEGATIVE [facility] Ptlufppeflxv3403-37-53 00:16:00* Test Item Value Reference Range Interpretation Comments Urine Urobilinogen (test code = 85003-1) 0.2 0.2-1 [facility] Gyxmnyani2832-87-65 00:16:00* Test Item Value Reference Range Interpretation Comments Urine Bilirubin (test code = 1978-6) NEGATIVE NEGATIVE [facility] Pvkah7712-28-96 00:16:00* Test Item Value Reference Range Interpretation Comments Urine Blood (test code = 96054-6) 4+ NEGATIVE H [facility] Mdaffyb2144-23-83 11:47:00* Test Item Value Reference Range Interpretation Comments Bedside Glucose (test code = 94909-7) 113 70-120 Meter ID: [id number] [facility] Glucose 2019-02-20 11:47:00* Test Item Value Reference Range Interpretation Comments Bedside Glucose (test code = 03693-3) 113 70-120 Meter ID: [id number] [facility] Hospitalodium [facility] 2019-02-19 12:01:00* Test Item Value Reference Range Interpretation Comments Sodium Level (test code = 2951-2) 135 136-145 L [facility] NortheastPotassium Wytyt6296-14-66 12:01:00* Test Item Value Reference Range Interpretation Comments Potassium Level (test code = 2823-3) 4.4 3.5-5.1 [facility] NortheastChloride Rajgf3804-98-39 12:01:00* Test Item Value Reference Range Interpretation Comments Chloride Level (test code = 2075-0) 107 98-107 [facility] NortheastCarbon Dioxide Nzkwq2929-91-62 12:01:00* Test Item Value Reference Range Interpretation Comments Carbon Dioxide Level (test code = 2028-9) 22 22-29 [facility] NortheastAnion Oqi8592-37-22 12:01:00* Test Item Value Reference Range Interpretation Comments Anion Gap (test code = 43320-8) 10.4 8-16 [facility] NortheastBlood Urea Mzchmdrn5491-62-20 12:01:00* Test Item Value Reference Range Interpretation Comments Blood Urea Nitrogen (test code = 3094-0) 28 7-26 [facility] NortheastCreatinine2019-12-28 12:01:00* Test Item Value Reference Range Interpretation Comments Creatinine (test code = 2160-0) 3.39 0.72-1.25 [facility] NortheastBUN/Creatinine Xqtzy3058-06-60 12:01:00* Test Item Value Reference Range Interpretation Comments BUN/Creatinine Ratio (test code = 3097-3) 8 6-25 [facility] NortheastEstimat Glomerular Filtration Rate 2019-02-19 12:01:00* Test Item Value Reference Range Interpretation Comments Estimat Glomerular Filtration Rate (test code = 759971168) 20 >60 L Ranges were taken from the National Kidney Disease Education Program and the [facility] [place] [employer] literature.Reference ranges:60 or greater: Bcwnic96-72 ( for 3 consecutive months): Chronic kidney disease 15 or less: Kidney failureMethodist Hospital NortheastGlucose Yppxr7026-73-42 12:01:00* Test Item Value Reference Range Interpretation Comments Glucose Level (test code = NHE5569) 158 74-118 [facility] NortheastCalcium Nshbq1212-47-00 12:01:00* Test Item Value Reference Range Interpretation Comments Calcium Level (test code = 46900-8) 7.2 8.4-10.2 L [facility] NortheastWhite Blood Drscm5963-03-21 11:43:00* Test Item Value Reference Range Interpretation Comments White Blood Count (test code = 6690-2) 3.62 4.8-10.8 L [facility] NortheastRed Blood Hezhw4988-80-65 11:43:00* Test Item Value Reference Range Interpretation Comments Red Blood Count (test code = 789-8) 2.84 4.3-5.7 L [facility] NortheastHemoglobin2019-12-28 11:43:00* Test Item Value Reference Range Interpretation Comments Hemoglobin (test code = 01528-0) 7.5 14.0-18.0 L [facility] NortheastHematocrit2019-12-28 11:43:00* Test Item Value Reference Range Interpretation Comments Hematocrit (test code = 4544-3) 23.2 38.2-49.6 L [facility] NortheastMean Corpuscular Zpornq2046-75-62 11:43:00* Test Item Value Reference Range Interpretation Comments Mean Corpuscular Volume (test code = 787-2) 81.7 81-99 [facility]Mean Corpuscular Nsividgtsu2850-18-11 11:43:00* Test Item Value Reference Range Interpretation Comments Mean Corpuscular Hemoglobin (test code = 785-6) 26.4 28-32 L [facility] NortheastMean Corpuscular Hemoglobin Concent 2019-02-19 11:43:00* Test Item Value Reference Range Interpretation Comments Mean Corpuscular Hemoglobin Concent (test code = 786-4) 32.3 31-35 [facility] NortheastRed Cell Distribution Kpqwr6341-05-49 11:43:00* Test Item Value Reference Range Interpretation Comments Red Cell Distribution Width (test code = 17480-3) 15.9 11.7 -14.4 H [facility] NortheastPlatelet Cdbmy2353-90-06 11:43:00* Test Item Value Reference Range Interpretation Comments Platelet Count (test code = 777-3) 95 140-360 L [facility] NortheastNeutrophils (%) (Auto)2019-02-19 11:43:00 * Test Item Value Reference Range Interpretation Comments Neutrophils (%) (Auto) (test code = 62486-1) 57.5 38.7-80.0 [facility] NortheastLymphocytes (%) (Auto)2019-02-19 11:43:00 * Test Item Value Reference Range Interpretation Comments Lymphocytes (%) (Auto) (test code = 736-9) 30.9 18.0-39.1 [facility] NortheastMonocytes (%) (Auto)2019-02-19 11:43:00* Test Item Value Reference Range Interpretation Comments Monocytes (%) (Auto) (test code = 5905-5) 6.9 4.4-11.3 [facility]Eosinophils (%) (Auto)2019-02-19 11:43:00 * Test Item Value Reference Range Interpretation Comments Eosinophils (%) (Auto) (test code = 713-8) 3.3 0.0-6.0 [facility]Basophils (%) (Auto)2019-02-19 11:43:00* Test Item Value Reference Range Interpretation Comments Basophils (%) (Auto) (test code = 706-2) 0.3 0.0-1.0 [facility] NortheastIM GRANULOCYTES %2019-02-19 11:43:00* Test Item Value Reference Range Interpretation Comments IM GRANULOCYTES % (test code = IM GRANULOCYTES %) 1.1 0.0- 1.0 H [facility] NortheastNeutrophils # (Auto)2019-02-19 11:43:00* Test Item Value Reference Range Interpretation Comments Neutrophils # (Auto) (test code = 751-8) 2.1 2.1-6.9 [facility] NortheastLymphocytes # (Auto)2019-02-19 11:43:00* Test Item Value Reference Range Interpretation Comments Lymphocytes # (Auto) (test code = 89133-8) 1.1 1.0-3.2 [facility]Monocytes # (Auto)2019-02-19 11:43:00* Test Item Value Reference Range Interpretation Comments Monocytes # (Auto) (test code = 742-7) 0.3 0.2-0.8 [facility]Eosinophils # (Auto)2019-02-19 11:43:00* Test Item Value Reference Range Interpretation Comments Eosinophils # (Auto) (test code = 711-2) 0.1 0.0-0.4 [facility]Basophils # (Auto)2019-02-19 11:43:00* Test Item Value Reference Range Interpretation Comments Basophils # (Auto) (test code = 704-7) 0.0 0.0-0.1 [facility] NortheastAbsolute Immature Granulocyte (auto 2019-02-19 11:43:00* Test Item Value Reference Range Interpretation Comments Absolute Immature Granulocyte (auto (shin t code = Absolute Immature Granulocyte (auto) 0.04 0-0.1 [facility] Ftukgjs3896-63-45 07:44:00* Test Item Value Reference Range Interpretation Comments Urine Culture (test code = 630-4) No Result Data Provided [facility] Kdgglgj7766-95-87 07:44:00* Test Item Value Reference Range Interpretation Comments Urine Culture (test code = 630-4) No Result Data Provided [facility] Pzgiiry4732-59-18 07:44:00* Test Item Value Reference Range Interpretation Comments Urine Culture (test code = 630-4) No Result Data Provided [facility]2019-12-28 07:44:00* Test Item Value Reference Range Interpretation Comments Urine Culture (test code = 630-4) No Result Data Provided [facility]2019-12-28 07:44:00* Test Item Value Reference Range Interpretation Comments Urine Culture (test code = 630-4) No Result Data Provided [facility]NEPH TUBE REMOVAL W/FL XHPSU7608-23-37 15:39:00 [place] [address] Patient Name: MANJIT LUO MR #: [id number] : 1980 Age/Sex: 38/M Req #: [id number] [facility] Physician: CASTRO JALLOH MD Ordered by: CASTRO JALLOH MD Report #: [id number] Location: MED/SURG Room/Bed: [facility] Procedure: [id number] IR/NE PH TUBE REMOVAL W/FL RIGHT Exam [...] 3:41 PM Dictated By: RONNIE GUALLPA MD 154 Transcribed By: TIFFANY on 02/18/19 1541 COPY TO: CASTRO JALLOH MD Xjnfhrkc4925-86-97 07:06:00* Test Item Value Reference Range Interpretation Comments Ferritin (test code = 2276-4) 23.96 21.81-274.66 [facility] NortheastFerritin2019-12-27 07:06:00* Test Item Value Reference Range Interpretation Comments Ferritin (test code = 2276-4) 23.96 21.81-274.66 [facility] NortheastIonized Mrqidqf1544-97-97 06:39:00* Test Item Value Reference Range Interpretation Comments Ionized Calcium (test code = 00878-2) 1.0 1.09-1.30 L [facility] Jjaxbsf2058-03-90 06:39:00* Test Item Value Reference Range Interpretation Comments Ionized Calcium (test code = 82606-5) 1.0 1.09-1.30 L [facility] Dfpydvi7542-74-61 06:39:00* Test Item Value Reference Range Interpretation Comments Ionized Calcium (test code = 05406-4) 1.0 1.09-1.30 L [facility] Miputmp9982-22-83 06:39:00* Test Item Value Reference Range Interpretation Comments Ionized Calcium (test code = 17257-2) 1.0 1.09-1.30 L [facility] Brqlvvz6791-89-62 06:39:00* Test Item Value Reference Range Interpretation Comments Ionized Calcium (test code = 57814-0) 1.0 1.09-1.30 L [facility] NortheastPhosphorus Nyhbs2223-26-31 08:27:00* Test Item Value Reference Range Interpretation Comments Phosphorus Level (test code = DDF3105) 4.3 2.3-4.7 [facility] NortheastAlbumin2019-12-26 08:27:00* Test Item Value Reference Range Interpretation Comments Albumin (test code = 1751-7) 2.4 3.5-5.0 L [facility] NortheastPhosphorus Dchak0969-72-11 08:27:00* Test Item Value Reference Range Interpretation Comments Phosphorus Level (test code = CBF1566) 4.3 2.3-4.7 [facility] NortheastAlbumin2019-12-26 08:27:00* Test Item Value Reference Range Interpretation Comments Albumin (test code = 1751-7) 2.4 3.5-5.0 L [facility] NortheastU[facility] Vcrnf7606-44-68 10:43:00* Test Item Value Reference Range Interpretation Comments Urine Color (test code = 5778-6) REMEDIOS YELLOW H [facility] NortheastU[facility] Akediej9740-09-72 10:43:00* Test Item Value Reference Range Interpretation Comments Urine Clarity (test code = 12891-0) CLOUDY CLEAR H [facility] NortheastU[facility] Specific Ivbilmn3615-85-22 10:43:00 * Test Item Value Reference Range Interpretation Comments Urine Specific [place] (test code = 5811-5) 1.020 1.010-1.02 5 [facility] vY0588-01-50 10:43:00* Test Item Value Reference Range Interpretation Comments Urine pH (test code = 89921-7) 6.5 5-7 [facility] Leukocyte Echunosa6353-82-91 10:43:00* Test Item Value Reference Range Interpretation Comments Urine Leukocyte Esterase (test code = 5799-2) MODERATE NEGATIVE [facility] Rtlhqpc5115-11-68 10:43:00* Test Item Value Reference Range Interpretation Comments Urine Nitrite (test code = 65937-8) NEGATIVE NEGATIVE [facility] Fujtzoz2440-82-14 10:43:00* Test Item Value Reference Range Interpretation Comments Urine Protein (test code = 5804-0) 2+ NEGATIVE H [facility] NortheastU[facility] Glucose (UA)2019-02-16 10:43:00* Test Item Value Reference Range Interpretation Comments Urine Glucose (UA) (test code = 2349-9) NEGATIVE NEGATIVE [facility] Riwufdg7853-07-39 10:43:00* Test Item Value Reference Range Interpretation Comments Urine Ketones (test code = 67485-0) NEGATIVE NEGATIVE [facility] Ybjvyphycgwu0742-05-06 10:43:00* Test Item Value Reference Range Interpretation Comments Urine Urobilinogen (test code = 35123-5) 0.2 0.2-1 [facility] Hnidkltbw2676-86-75 10:43:00* Test Item Value Reference Range Interpretation Comments Urine Bilirubin (test code = 1978-6) SMALL NEGATIVE [facility] Begnl7108-90-28 10:43:00* Test Item Value Reference Range Interpretation Comments Urine Blood (test code = 79466-6) NEGATIVE NEGATIVE [facility] IQX8176-92-50 10:43:00* Test Item Value Reference Range Interpretation Comments Urine WBC (test code = 5821-4) 0-5 0-5 [facility] NYI9435-09-22 10:43:00* Test Item Value Reference Range Interpretation Comments Urine RBC (test code = 66452-7) 0-5 0-5 [facility] Qjvwzawn8972-22-67 10:43:00* Test Item Value Reference Range Interpretation Comments Urine Bacteria (test code = 51173-5) RARE NONE [facility] Epithelial Ynnqs2770-86-18 10:43:00 * Test Item Value Reference Range Interpretation Comments Urine Epithelial Cells (test code = 67865-9) FEW NONE [facility] NortheastBacterial urine bmnpwnz0606-55-65 09:30:00* Test Item Value Reference Range Interpretation Comments Urine Culture (test code = 630-4) STAPHYLOCOCCUS AUREUS [facility] NortheastBacterial urine dmaahno9717-99-83 09:30:00* Test Item Value Reference Range Interpretation Comments Urine Culture (test code = 630-4) STAPHYLOCOCCUS AUREUS [facility] NortheastMagnesium Aftjh3246-66-01 06:58:00* Test Item Value Reference Range Interpretation Comments Magnesium Level (test code = 55605-1) 1.3 1.3-2.1 [facility]Magn[facility] Fwlso8239-49-85 06:58:00* Test Item Value Reference Range Interpretation Comments Magnesium Level (test code = 35942-4) 1.3 1.3-2.1 [facility]Magn[facility] Zrtji1487-63-60 06:58:00* Test Item Value Reference Range Interpretation Comments Magnesium Level (test code = 65525-9) 1.3 1.3-2.1 [facility] NortheastIR MFWYHSA7494-11-09 16:41:00 [facility] [address] [place] [address] Patient Name: MANJIT LUO MR #: [id number] : 1980 Age/Sex: 38/M q #: [id number] [facility] Physician: CASTRO JALLOH MD Ordered by: CASTRO JALLOH MD Report #: [id number] Location: MED/SURG Room/Bed: [facility] Procedure: [id number] DX/IR CONSULT Exam Date: Exam Time: REPORT [...] urology. PROCEDURE SUMMARY - Target organ: Unilateral [place] kidney - Image-guided placement of genitour inary [...] PM Dictated By: JOSE F FERRER MD 5246 Transc ribed By: TIFFANY on 02/15/19 821 COPY TO: CASTRO JALLOH MD NEPHRO/URET W IMG/INJ-NEW VQH5654-64-56 16:41:00 [place] [address] Patient Name: MANJIT LUO MR #: [id number] : 1980 Age/Sex: 38/M Req #: [id number] Adm Physician: CASTRO JALLOH MD Ordered by: CASTRO JALLOH MD Report #: [id number] Location: MED/SURG Room/Bed: [facility] Procedure: [id number] IR/NE PHRO/URET W IMG/INJ-NEW ACC Exam Date: Exam Time: REPORT STATUS: Signed [...] urology. PROCEDURE SUMMARY - Target organ: Unilateral [place] kidney - Image-guided pl acement of genitourinary [...] F FERRER MD 45 COPY TO: BLANCA JALLOH MD US GUIDANCE FOR HFNOAVEVG3476-97-12 16:41:00 [place] [address] Patient Name: MANJIT LUO MR #: [id number] : 1980 Age/Sex: 38/M Req #: [id number] Adm Physician: CASTRO JALLOH MD Ordered by: CASTRO JALLOH MD Report #: [id number] Location: MED/SURG Room/Bed: [facility] Procedure: [id number] US/US GUIDANCE FOR PROCEDURE Exam Date: 02/15/19 Exam Cm e: 1258 REPORT STATUS: Signed [place] OCEDURE: Genitourinary catheter placement Procedural Personnel Attending [...] __ PROCEDURE SUMMARY - Target organ: Unilateral [place] kidney - Image-g uided placement of genitourinary [...] loss (mL): Less than 10 Standardized report: SIR_GUCath eterPlacement_v3 Attestation Signer name: Jose F Ferrer MD I attest that I was present for the entire procedure. I reviewed the stored images and agree with the report as written. Signed by: Jose F Ferrer MD on 02/15/2019 4:46 PM Dictated By: JOSE F FERRER MD 45 Transcribed By: TIFFANY on 02/15/191645 COPY TO: CASTRO CESPEDES MD Prothrombin Hgfs5311-51-97 16:06:00* Test Item Value Reference Range Interpretation Comments Prothrombin Time (test code = 5902-2) 14.4 11.9-14.5 [facility]Prothromb Time International Ratio 2019-02-15 16:06:00* Test Item Value Reference Range Interpretation Comments Prothromb Time International Ratio (test code = 6301-6) 1.07 Oral Anticoagulant Therapy INR Values:1. Low Intensity Therapy 1.5 - 2.02 . Moderate Intensity Therapy 2.0 - 3.03. High Intensity Therapy(1) 2.5 - 3. 54. High Intensity Therapy(2) 3.0 - 4.05. Panic Value INR > 5.0 [facility]Act[facility] Thromboplast Time 2019-02-15 16:06:00* Test Item Value Reference Range Interpretation Comments Activated Partial Thromboplast Time (test code = 75026-1) 32.7 23.8-35.5 [facility] NortheastProthrombin Bith2374-93-66 16:06:00* Test Item Value Reference Range Interpretation Comments Prothrombin Time (test code = 5902-2) 14.4 11.9-14.5 [facility] NortheastProthromb Time International Ratio 2019-02-15 16:06:00* Test Item Value Reference Range Interpretation Comments Prothromb Time International Ratio (test code = 6301-6) 1.07 Oral Anticoagulant Therapy INR Values:1. Low Intensity Therapy 1.5 - 2.02 . Moderate Intensity Therapy 2.0 - 3.03. High Intensity Therapy(1) 2.5 - 3. 54. High Intensity Therapy(2) 3.0 - 4.05. Panic Value INR > 5.0 [facility]Act[facility] Partial Thromboplast Time 2019-02-15 16:06:00* Test Item Value Reference Range Interpretation Comments Activated Partial Thromboplast Time (test code = 83995-9) 32.7 23.8-35.5 [facility]Act[facility] Partial Thromboplast Time 2019-02-15 16:06:00* Test Item Value Reference Range Interpretation Comments Activated Partial Thromboplast Time (test code = 97711-9) 32.7 23.8-35.5 [facility]Act[facility] Partial Thromboplast Time 2019-02-15 16:06:00* Test Item Value Reference Range Interpretation Comments Activated Partial Thromboplast Time (test code = 37194-2) 32.7 23.8-35.5 [facility]Act[facility] Partial Thromboplast Time 2019-02-15 16:06:00* Test Item Value Reference Range Interpretation Comments Activated Partial Thromboplast Time (test code = 47711-8) 32.7 23.8-35.5 [facility] NortheastActivated partial thromboplastin time (aPTT) in platelet poor plasma by coagulation dulmm1535-69-72 14:23:00* Test Item Value Reference Range Interpretation Comments Activated Partial Thromboplast Time (test code = 97994-2) 32.7 23.8-35.5 [facility] NortheastRE[facility] W/JTQQC6789-23-46 18:29:00 [place] [address] Patient Name: MANJIT LUO MR #: [id number] : 1980 Age/Sex: 38/M Req #: [id number] Adm Physician: Ordered by: CASTRO JALLOH MD Report #: [id number] Location: ID Room/Bed: Procedure: [id number] NM/RE NAL SCAN W/LASIX Exam Date: 01/14/19 [...] Transcribed By: TIFFANY on 01/14/191847 COPY TO: CASTRO JALLOH MD ABDOMEN 2 [id number] 11:34:00 [place] [address] Patient Name: MANJIT LUO MR #: [id number] : 1980 Age/Sex: 38/M Req #: [id number] Adm Physician: Ordered by: LUZ MARINA CURRIE MD Report #: [id number] Location: ER Room/Bed: Procedure: [id number] 2 DX/ABDOMEN [...] PETE MD 113 Transcribed By: TIFFANY on 11/11/181134 COPY TO: LUZ MARINA CURRIE MD Differential Total Cells Sacrvlp3861-48-47 11:23:00* Test Item Value Reference Range Interpretation Comments Differential Total Cells Counted (test code = Differomar tial Total Cells Counted) 100 [facility]Neutrophils % (Manual)2018-11-11 11:23:00 * Test Item Value Reference Range Interpretation Comments Neutrophils % (Manual) (test code = 63723-3) 74 40-74 [facility] NortheastLymphocytes % (Manual)2018-11-11 11:23:00 * Test Item Value Reference Range Interpretation Comments Lymphocytes % (Manual) (test code = 737-7) 19 19-48 [facility] NortheastMonocytes % (Manual)2018-11-11 11:23:00* Test Item Value Reference Range Interpretation Comments Monocytes % (Manual) (test code = 744-3) 5 3.4-9.0 [facility] NortheastEosinophils % (Manual)2018-11-11 11:23:00 * Test Item Value Reference Range Interpretation Comments Eosinophils % (Manual) (test code = 714-6) 2 0-7 [facility] NortheastPlatelet Xnlpboyw4888-48-93 11:23:00* Test Item Value Reference Range Interpretation Comments Platelet Estimate (test code = 07273-0) MODERATELY DECREASED [facility] NortheastPlatelet Morphology Wamrkzm5495-26-21 11:23:00* Test Item Value Reference Range Interpretation Comments Platelet Morphology Comment (test code = 03457-6) FEW LARGE NO PLT CLUMPSMethodist Hospital NortheastRed Cell Morphology Comment 2018-11-11 11:23:00* Test Item Value Reference Range Interpretation Comments Red Cell Morphology Comment (test code = 6742-1) NORMAL [facility] NortheastDifferential Total Cells Counted 2018-11-11 11:23:00* Test Item Value Reference Range Interpretation Comments Differential Total Cells Counted (test code = Differomar tial Total Cells Counted) 100 [facility] NortheastNeutrophils % (Manual)2018-11-11 11:23:00 * Test Item Value Reference Range Interpretation Comments Neutrophils % (Manual) (test code = 16056-1) 74 40-74 [facility] NortheastLymphocytes % (Manual)2018-11-11 11:23:00 * Test Item Value Reference Range Interpretation Comments Lymphocytes % (Manual) (test code = 737-7) 19 19-48 [facility] NortheastMonocytes % (Manual)2018-11-11 11:23:00* Test Item Value Reference Range Interpretation Comments Monocytes % (Manual) (test code = 744-3) 5 3.4-9.0 [facility] NortheastEosinophils % (Manual)2018-11-11 11:23:00 * Test Item Value Reference Range Interpretation Comments Eosinophils % (Manual) (test code = 714-6) 2 0-7 [facility] NortheastPlatelet Oyyuzfio4967-21-07 11:23:00* Test Item Value Reference Range Interpretation Comments Platelet Estimate (test code = 49994-4) MODERATELY DECREASED [facility] NortheastPlatelet Morphology Fdzjdof9311-63-20 11:23:00* Test Item Value Reference Range Interpretation Comments Platelet Morphology Comment (test code = 85185-3) FEW LARGE NO PLT CLUMPSMethodist Hospital NortheastRed Cell Morphology Comment 2018-11-11 11:23:00* Test Item Value Reference Range Interpretation Comments Red Cell Morphology Comment (test code = 6742-1) NORMAL [facility] NortheastDifferential Total Cells Counted 2018-11-11 11:23:00* Test Item Value Reference Range Interpretation Comments Differential Total Cells Counted (test code = Differen tial Total Cells Counted) 100 [facility] NortheastNeutrophils % (Manual)2018-11-11 11:23:00 * Test Item Value Reference Range Interpretation Comments Neutrophils % (Manual) (test code = 93002-2) 74 40-74 [facility] NortheastLymphocytes % (Manual)2018-11-11 11:23:00 * Test Item Value Reference Range Interpretation Comments Lymphocytes % (Manual) (test code = 737-7) 19 19-48 [facility] NortheastMonocytes % (Manual)2018-11-11 11:23:00* Test Item Value Reference Range Interpretation Comments Monocytes % (Manual) (test code = 744-3) 5 3.4-9.0 [facility] NortheastEosinophils % (Manual)2018-11-11 11:23:00 * Test Item Value Reference Range Interpretation Comments Eosinophils % (Manual) (test code = 714-6) 2 0-7 [facility] NortheastPlatelet Wudgqwpf9813-72-87 11:23:00* Test Item Value Reference Range Interpretation Comments Platelet Estimate (test code = 95211-2) MODERATELY DECREASED [facility] NortheastPlatelet Morphology Qdnpnnl2422-87-35 11:23:00* Test Item Value Reference Range Interpretation Comments Platelet Morphology Comment (test code = 39731-8) FEW LARGE NO PLT CLUMPSMethodist Hospital NortheastRed Cell Morphology Comment 2018-11-11 11:23:00* Test Item Value Reference Range Interpretation Comments Red Cell Morphology Comment (test code = 6742-1) NORMAL [facility] NortheastDifferential Total Cells Counted 2018-11-11 11:23:00* Test Item Value Reference Range Interpretation Comments Differential Total Cells Counted (test code = Differen tial Total Cells Counted) 100 [facility] NortheastNeutrophils % (Manual)2018-11-11 11:23:00 * Test Item Value Reference Range Interpretation Comments Neutrophils % (Manual) (test code = 82033-2) 74 40-74 [facility] NortheastLymphocytes % (Manual)2018-11-11 11:23:00 * Test Item Value Reference Range Interpretation Comments Lymphocytes % (Manual) (test code = 737-7) 19 [facility] CenterMonocytes % (Manual)2018-11-11 11:23:00* Test Item Value Reference Range Interpretation Comments Monocytes % (Manual) (test code = 744-3) 5 3.4-9.0 [facility] NortheastEosinophils % (Manual)2018-11-11 11:23:00 * Test Item Value Reference Range Interpretation Comments Eosinophils % (Manual) (test code = 714-6) 2 0-7 [facility] NortheastPlatelet Ohogugnh5172-64-86 11:23:00* Test Item Value Reference Range Interpretation Comments Platelet Estimate (test code = 07757-5) MODERATELY DECREASED [facility] NortheastPlatelet Morphology Bqhcwzv7809-33-96 11:23:00* Test Item Value Reference Range Interpretation Comments Platelet Morphology Comment (test code = 92907-0) FEW LARGE NO PLT CLUMPSMethodist Hospital NortheastRed Cell Morphology Comment 2018-11-11 11:23:00* Test Item Value Reference Range Interpretation Comments Red Cell Morphology Comment (test code = 6742-1) NORMAL [facility] NortheastDifferential Total Cells Counted 2018-11-11 11:23:00* Test Item Value Reference Range Interpretation Comments Differential Total Cells Counted (test code = Differomar tial Total Cells Counted) 100 [facility] NortheastNeutrophils % (Manual)2018-11-11 11:23:00 * Test Item Value Reference Range Interpretation Comments Neutrophils % (Manual) (test code = 39697-1) 74 40-74 [facility] NortheastLymphocytes % (Manual)2018-11-11 11:23:00 * Test Item Value Reference Range Interpretation Comments Lymphocytes % (Manual) (test code = 737-7) 19 - [facility] NortheastMonocytes % (Manual)2018-11-11 11:23:00* Test Item Value Reference Range Interpretation Comments Monocytes % (Manual) (test code = 744-3) 5 3.4-9.0 [facility] NortheastEosinophils % (Manual)2018-11-11 11:23:00 * Test Item Value Reference Range Interpretation Comments Eosinophils % (Manual) (test code = 714-6) 2 0-7 [facility] NortheastPlatelet Ymkhxrbo4943-72-01 11:23:00* Test Item Value Reference Range Interpretation Comments Platelet Estimate (test code = 74119-4) MODERATELY DECREASED [facility] NortheastPlatelet Morphology Mmmwrzf0911-95-12 11:23:00* Test Item Value Reference Range Interpretation Comments Platelet Morphology Comment (test code = 13457-5) FEW LARGE NO PLT CLUMPSMethodist Hospital NortheastRed Cell Morphology Comment 2018-11-11 11:23:00* Test Item Value Reference Range Interpretation Comments Red Cell Morphology Comment (test code = 6742-1) NORMAL [facility] NortheastDifferential Total Cells Counted 2018-11-11 11:23:00* Test Item Value Reference Range Interpretation Comments Differential Total Cells Counted (test code = Differomar tial Total Cells Counted) 100 [facility] NortheastNeutrophils % (Manual)2018-11-11 11:23:00 * Test Item Value Reference Range Interpretation Comments Neutrophils % (Manual) (test code = 87176-7) 74 40-74 [facility] NortheastLymphocytes % (Manual)2018-11-11 11:23:00 * Test Item Value Reference Range Interpretation Comments Lymphocytes % (Manual) (test code = 737-7) 19 19-48 [facility] NortheastMonocytes % (Manual)2018-11-11 11:23:00* Test Item Value Reference Range Interpretation Comments Monocytes % (Manual) (test code = 744-3) 5 3.4-9.0 [facility] NortheastEosinophils % (Manual)2018-11-11 11:23:00 * Test Item Value Reference Range Interpretation Comments Eosinophils % (Manual) (test code = 714-6) 2 0-7 [facility] NortheastPlatelet Ewxhayzu3055-51-47 11:23:00* Test Item Value Reference Range Interpretation Comments Platelet Estimate (test code = 48655-9) MODERATELY DECREASED [facility] NortheastPlatelet Morphology Gqqtzzs1969-36-98 11:23:00* Test Item Value Reference Range Interpretation Comments Platelet Morphology Comment (test code = 16368-1) FEW LARGE NO PLT CLUMPSMethodist Hospital NortheastRed Cell Morphology Comment 2018-11-11 11:23:00* Test Item Value Reference Range Interpretation Comments Red Cell Morphology Comment (test code = 6742-1) NORMAL [facility] NortheastUrine CWP3248-28-64 08:27:00* Test Item Value Reference Range Interpretation Comments Urine WBC (test code = 5821-4) 21-50 0-5 H [facility] NortheastU[facility] JWG7269-53-16 08:27:00* Test Item Value Reference Range Interpretation Comments Urine RBC (test code = 17866-8) 21-50 0-5 H [facility] NortheastUrine Xjcbxqtb7104-12-97 08:27:00* Test Item Value Reference Range Interpretation Comments Urine Bacteria (test code = 63340-5) RARE NONE [facility] NortheastU[facility] Epithelial Tosod6910-98-37 08:27:00 * Test Item Value Reference Range Interpretation Comments Urine Epithelial Cells (test code = 89000-1) FEW NONE [facility] NortheastU[facility] Albrt1656-05-64 08:20:00* Test Item Value Reference Range Interpretation Comments Urine Color (test code = 5778-6) YELLOW YELLOW [facility] Bljxmbr7355-16-56 08:20:00* Test Item Value Reference Range Interpretation Comments Urine Clarity (test code = 04676-1) SL CLOUDY CLEAR H [facility] NortheastU[facility] Specific Ovgdlcr9939-80-08 08:20:00 * Test Item Value Reference Range Interpretation Comments Urine Specific [place] (test code = 5811-5) 1.025 1.010-1.02 5 [facility] iF0185-83-69 08:20:00* Test Item Value Reference Range Interpretation Comments Urine pH (test code = 10986-7) 6 5-7 [facility] NortheastU[facility] Leukocyte Incpukfk9627-66-19 08:20:00* Test Item Value Reference Range Interpretation Comments Urine Leukocyte Esterase (test code = 86172-2) TRACE NEGATIV E H [facility] NortheastU[facility] Utyiark7808-39-02 08:20:00* Test Item Value Reference Range Interpretation Comments Urine Nitrite (test code = 93494-0) NEGATIVE NEGATIVE [facility] Tjpeoed5154-10-91 08:20:00* Test Item Value Reference Range Interpretation Comments Urine Protein (test code = 94866-8) 3+ NEGATIVE H [facility] NortheastU[facility] Glucose (UA)2018-11-11 08:20:00* Test Item Value Reference Range Interpretation Comments Urine Glucose (UA) (test code = 54270-6) 1+ NEGATIVE H [facility] Xzisecj5305-01-30 08:20:00* Test Item Value Reference Range Interpretation Comments Urine Ketones (test code = 99082-7) NEGATIVE NEGATIVE [facility] Jjknoshtucpx5026-64-94 08:20:00* Test Item Value Reference Range Interpretation Comments Urine Urobilinogen (test code = 27735-0) 0.2 0.2-1 [facility] Hlndxcgzz2359-40-81 08:20:00* Test Item Value Reference Range Interpretation Comments Urine Bilirubin (test code = 1977-8) NEGATIVE NEGATIVE [facility] Shsow3043-86-30 08:20:00* Test Item Value Reference Range Interpretation Comments Urine Blood (test code = 94953-5) 3+ [facility]GATIVE [facility] Lynfa4545[facility]-91 08:04:00* Test Item Value Reference Range Interpretation Comments Sodium Level (test code = 2951-2) 137 136-145 [facility] NortheastPotassium Ewucf7294-73-22 08:04:00* Test Item Value Reference Range Interpretation Comments Potassium Level (test code = 2823-3) 4.8 3.5-5.1 [facility] NortheastChloride Cxepg6385-34-80 08:04:00* Test Item Value Reference Range Interpretation Comments Chloride Level (test code = 2075-0) 109 98-107 H [facility] NortheastCarbon Dioxide Gtstd6326-40-90 08:04:00* Test Item Value Reference Range Interpretation Comments Carbon Dioxide Level (test code = 2028-9) 18 22-29 L [facility] NortheastAnion Mki7600-14-16 08:04:00* Test Item Value Reference Range Interpretation Comments Anion Gap (test code = 13100-1) 14.8 8-16 [facility] NortheastBlood Urea Ocdpgncz9302-94-02 08:04:00* Test Item Value Reference Range Interpretation Comments Blood Urea Nitrogen (test code = 3094-0) 35 7-26 H [facility] NortheastCreatinine2019-09-19 08:04:00* Test Item Value Reference Range Interpretation Comments Creatinine (test code = 2160-0) 3.89 0.72-1.25 H [facility] NortheastBUN/Creatinine Qyaif6393-42-89 08:04:00* Test Item Value Reference Range Interpretation Comments BUN/Creatinine Ratio (test code = 3097-3) 9 6-25 [facility] NortheastEstimat Glomerular Filtration Rate 2018-11-11 08:04:00* Test Item Value Reference Range Interpretation Comments Estimat Glomerular Filtration Rate (test code = 463832313) 17 >60 L Ranges were taken from the National Kidney Disease Education Program and the [facility] Kidney Foundation literature.Reference ranges:60 or greater: Adsdhd90-71 ( for 3 consecutive months): Chronic kidney disease 15 or less: Kidney failureMethodist Hospital NortheastGlucose Iowny3532-49-00 08:04:00* Test Item Value Reference Range Interpretation Comments Glucose Level (test code = JRT4524) 146 74-118 H [facility] NortheastCalcium Fqptw1002-03-25 08:04:00* Test Item Value Reference Range Interpretation Comments Calcium Level (test code = 15931-8) 9.0 8.4-10.2 [facility] NortheastTotal Bqkzcibur4366-77-82 08:04:00* Test Item Value Reference Range Interpretation Comments Total Bilirubin (test code = 1975-2) 0.6 0.2-1.2 [facility] NortheastAspartate Amino Transf (AST/SGOT) 2018-11-11 08:04:00* Test Item Value Reference Range Interpretation Comments Aspartate Amino Transf (AST/SGOT) (test code = Aspartate Amino Transf (AST/SGOT)) 14 [facility] NortheastAlanine Aminotransferase (ALT/SGPT) 2018-11-11 08:04:00* Test Item Value Reference Range Interpretation Comments Alanine Aminotransferase (ALT/SGPT) (test code = 1742-6) 9 0-55 [facility] NortheastTotal Tyjqdsn9308-11-97 08:04:00* Test Item Value Reference Range Interpretation Comments Total Protein (test code = 2885-2) 7.9 6.5-8.1 [facility] NortheastAlbumin2019-09-19 08:04:00* Test Item Value Reference Range Interpretation Comments Albumin (test code = 1751-7) 3.2 3.5-5.0 L [facility] NortheastGlobulin2019-09-19 08:04:00* Test Item Value Reference Range Interpretation Comments Globulin (test code = 72189-6) 4.7 2.3-3.5 H [facility] NortheastAlbumin/Globulin Glais8975-23-01 08:04:00 * Test Item Value Reference Range Interpretation Comments Albumin/Globulin Ratio (test code = 1759-0) 0.7 0.8-2.0 L [facility] NortheastAlkaline Ltcuzmvtveh3849-23-56 08:04:00* Test Item Value Reference Range Interpretation Comments Alkaline Phosphatase (test code = 6768-6) 202 40-150 H [facility] NortheastTotal Futlcgjjt5834-32-89 08:04:00* Test Item Value Reference Range Interpretation Comments Total Bilirubin (test code = 1975-2) 0.6 0.2-1.2 [facility] NortheastAspartate Amino Transf (AST/SGOT) 2018-11-11 08:04:00* Test Item Value Reference Range Interpretation Comments Aspartate Amino Transf (AST/SGOT) (test code = Aspartate Amino Transf (AST/SGOT)) 14 [facility] NortheastAlanine Aminotransferase (ALT/SGPT) 2018-11-11 08:04:00* Test Item Value Reference Range Interpretation Comments Alanine Aminotransferase (ALT/SGPT) (test code = 1742-6) 9 0-55 [facility] NortheastTotal Xzsftbl7909-24-12 08:04:00* Test Item Value Reference Range Interpretation Comments Total Protein (test code = 2885-2) 7.9 6.5-8.1 [facility] NortheastGlobulin2019-09-19 08:04:00* Test Item Value Reference Range Interpretation Comments Globulin (test code = 10773-4) 4.7 2.3-3.5 H [facility] NortheastAlbumin/Globulin Fnyys8063-32-47 08:04:00 * Test Item Value Reference Range Interpretation Comments Albumin/Globulin Ratio (test code = 1759-0) 0.7 0.8-2.0 L [facility] NortheastAlkaline Jolrndxvdzx2569-33-40 08:04:00* Test Item Value Reference Range Interpretation Comments Alkaline Phosphatase (test code = 6768-6) 202 40-150 H [facility] NortheastTotal Ulkevnpzw4358-44-36 08:04:00* Test Item Value Reference Range Interpretation Comments Total Bilirubin (test code = 1975-2) 0.6 0.2-1.2 [facility] NortheastAspartate Amino Transf (AST/SGOT) 2018-11-11 08:04:00* Test Item Value Reference Range Interpretation Comments Aspartate Amino Transf (AST/SGOT) (test code = Aspartate Amino Transf (AST/SGOT)) 14 5-34 [facility] NortheastAlanine Aminotransferase (ALT/SGPT) 2018-11-11 08:04:00* Test Item Value Reference Range Interpretation Comments Alanine Aminotransferase (ALT/SGPT) (test code = 1742-6) 9 0-55 [facility] NortheastTotal Oywftce9272-86-21 08:04:00* Test Item Value Reference Range Interpretation Comments Total Protein (test code = 2885-2) 7.9 6.5-8.1 [facility] NortheastGlobulin2019-09-19 08:04:00* Test Item Value Reference Range Interpretation Comments Globulin (test code = 15491-3) 4.7 2.3-3.5 H [facility] NortheastAlbumin/Globulin Zrbab4058-16-70 08:04:00 * Test Item Value Reference Range Interpretation Comments Albumin/Globulin Ratio (test code = 1759-0) 0.7 0.8-2.0 L [facility] NortheastAlkaline Lhhwsnqhufy8156-53-14 08:04:00* Test Item Value Reference Range Interpretation Comments Alkaline Phosphatase (test code = 6768-6) 202 40-150 H [facility] NortheastWhite Blood Hakbn6632-26-04 07:49:00* Test Item Value Reference Range Interpretation Comments White Blood Count (test code = 6690-2) 6.09 4.8-10.8 [facility] NortheastRed Blood Ztpup8315-40-96 07:49:00* Test Item Value Reference Range Interpretation Comments Red Blood Count (test code = 789-8) 4.56 4.3-5.7 [facility] NortheastHemoglobin2019-09-19 07:49:00* Test Item Value Reference Range Interpretation Comments Hemoglobin (test code = 43433-5) 12.7 14.0-18.0 L [facility] NortheastHematocrit2019-09-19 07:49:00* Test Item Value Reference Range Interpretation Comments Hematocrit (test code = 4544-3) 38.6 38.2-49.6 [facility] NortheastMean Corpuscular Pquhfj0816-03-62 07:49:00* Test Item Value Reference Range Interpretation Comments Mean Corpuscular Volume (test code = 787-2) 84.6 81-99 [facility] NortheastMean Corpuscular Lpvqldhojd6090-96-03 07:49:00* Test Item Value Reference Range Interpretation Comments Mean Corpuscular Hemoglobin (test code = 785-6) 27.9 28-32 L [facility] NortheastMean Corpuscular Hemoglobin Concent 2018-11-11 07:49:00* Test Item Value Reference Range Interpretation Comments Mean Corpuscular Hemoglobin Concent (test code = 786-4) 32.9 31-35 [facility] NortheastRed Cell Distribution Xbplt6765-28-21 07:49:00* Test Item Value Reference Range Interpretation Comments Red Cell Distribution Width (test code = 00448-1) 15.5 11.7 -14.4 H [facility] NortheastPlatelet Yjzzz6435-48-76 07:49:00* Test Item Value Reference Range Interpretation Comments Platelet Count (test code = 777-3) 140 140-360 [facility] NortheastNeutrophils (%) (Auto)2018-11-11 07:49:00 * Test Item Value Reference Range Interpretation Comments Neutrophils (%) (Auto) (test code = 76259-7) 74.1 38.7-80.0 [facility] NortheastLymphocytes (%) (Auto)2018-11-11 07:49:00 * Test Item Value Reference Range Interpretation Comments Lymphocytes (%) (Auto) (test code = 736-9) 18.2 18.0-39.1 [facility] NortheastMonocytes (%) (Auto)2018-11-11 07:49:00* Test Item Value Reference Range Interpretation Comments Monocytes (%) (Auto) (test code = 5905-5) 4.9 4.4-11.3 [facility] NortheastEosinophils (%) (Auto)2018-11-11 07:49:00 * Test Item Value Reference Range Interpretation Comments Eosinophils (%) (Auto) (test code = 713-8) 2.0 0.0-6.0 [facility] NortheastBasophils (%) (Auto)2018-11-11 07:49:00* Test Item Value Reference Range Interpretation Comments Basophils (%) (Auto) (test code = 706-2) 0.3 0.0-1.0 [facility] NortheastIM GRANULOCYTES %2018-11-11 07:49:00* Test Item Value Reference Range Interpretation Comments IM GRANULOCYTES % (test code = IM GRANULOCYTES %) 0.5 0.0- 1.0 [facility] NortheastNeutrophils # (Auto)2018-11-11 07:49:00* Test Item Value Reference Range Interpretation Comments Neutrophils # (Auto) (test code = 751-8) 4.5 2.1-6.9 [facility] NortheastLymphocytes # (Auto)2018-11-11 07:49:00* Test Item Value Reference Range Interpretation Comments Lymphocytes # (Auto) (test code = 55981-4) 1.1 1.0-3.2 [facility] NortheastMonocytes # (Auto)2018-11-11 07:49:00* Test Item Value Reference Range Interpretation Comments Monocytes # (Auto) (test code = 742-7) 0.3 0.2-0.8 [facility] NortheastEosinophils # (Auto)2018-11-11 07:49:00* Test Item Value Reference Range Interpretation Comments Eosinophils # (Auto) (test code = 711-2) 0.1 0.0-0.4 [facility] ([facility])2018-11-11 07:49:00* Test Item Value Reference Range Interpretation Comments Basophils # (Auto) (test code = 704-7) 0.0 0.0-0.1 [facility] Immature Granulocyte (auto 2018-11-11 07:49:00* Test Item Value Reference Range Interpretation Comments Absolute Immature Granulocyte (auto (shin t code = Absolute Immature Granulocyte (auto) 0.03 0-0.1 [facility] NortheastFluoroscopic procedure less than one hour evlmgekw9536-71-43 07:22:00* Test Item Value Reference Range Interpretation Comments Differential Total Cells Counted (test code = Differen tial Total Cells Counted) 100 [facility] blood neutrophils/100 leukocytes 2018-11-11 07:22:00* Test Item Value Reference Range Interpretation Comments Neutrophils % (Manual) (test code = 31658-3) 74 40-74 [facility] blood lymphocytes/100 leukocytes 2018-11-11 07:22:00* Test Item Value Reference Range Interpretation Comments Lymphocytes % (Manual) (test code = 737-7) 19 19-48 [facility] blood monocytes/100 leukocytes 2018-11-11 07:22:00* Test Item Value Reference Range Interpretation Comments Monocytes % (Manual) (test code = 744-3) 5 3.4-9.0 [facility] blood eosinophil count as percentage of total fitlzxrcxk6313-05-68 07:22:00* Test Item Value Reference Range Interpretation Comments Eosinophils % (Manual) (test code = 714-6) 2 0-7 [facility]Blood platelets count by estimate (number/volume)2018-11-11 07:22:00* Test Item Value Reference Range Interpretation Comments Platelet Estimate (test code = 89197-3) MODERATELY DECREASED [facility] NortheastPlatelet wvdvbncvgz8377-30-87 07:22:00* Test Item Value Reference Range Interpretation Comments Platelet Morphology Comment (test code = 44794-4) FEW LARGE NO PLT CLUMPSMethodist Hospital NortheastRBC tsfmkullwn8406-59-23 07:22:00* Test Item Value Reference Range Interpretation Comments Red Cell Morphology Comment (test code = 6742-1) NORMAL [facility] NortheastFluoroscopic procedure less than one hour rewmyuqq6129-68-09 07:22:00* Test Item Value Reference Range Interpretation Comments Differential Total Cells Counted (test code = Differomar tial Total Cells Counted) 100 [facility] blood neutrophils/100 leukocytes 2018-11-11 07:22:00* Test Item Value Reference Range Interpretation Comments Neutrophils % (Manual) (test code = 54323-6) 74 40-74 [facility] blood lymphocytes/100 leukocytes 2018-11-11 07:22:00* Test Item Value Reference Range Interpretation Comments Lymphocytes % (Manual) (test code = 737-7) 19 19-48 [facility] blood monocytes/100 leukocytes 2018-11-11 07:22:00* Test Item Value Reference Range Interpretation Comments Monocytes % (Manual) (test code = 744-3) 5 3.4-9.0 [facility] blood eosinophil count as percentage of total aynwcxswfz0640-14-63 07:22:00* Test Item Value Reference Range Interpretation Comments Eosinophils % (Manual) (test code = 714-6) 2 0-7 [facility]Blood platelets count by estimate (number/volume)2018-11-11 07:22:00* Test Item Value Reference Range Interpretation Comments Platelet Estimate (test code = 82182-1) MODERATELY DECREASED [facility] NortheastPlatelet ovaxeiihsy5002-22-88 07:22:00* Test Item Value Reference Range Interpretation Comments Platelet Morphology Comment (test code = 96418-7) FEW LARGE NO PLT CLUMPSMethodist Hospital NortheastRBC tjutvycswl8303-36-17 07:22:00* Test Item Value Reference Range Interpretation Comments Red Cell Morphology Comment (test code = 6742-1) NORMAL [facility] Vifewit8837-62-15 07:37:00* Test Item Value Reference Range Interpretation Comments Bedside Glucose (test code = 52717-0) 160 70-120 H Meter ID: [id number] [facility] [place] Glucose 2018-11-08 07:37:00* Test Item Value Reference Range Interpretation Comments Bedside Glucose (test code = 26568-0) 160 70-120 H Meter ID: [id number] Hospital NortheastDifferential Total Cells Xnyxcvu9330-02-60 06:23:00* Test Item Value Reference Range Interpretation Comments Differential Total Cells Counted (test code = Brian tial Total Cells Counted) 100 [facility]Neutrophils % (Manual)2018-11-08 06:23:00 * Test Item Value Reference Range Interpretation Comments Neutrophils % (Manual) (test code = 08484-6) 71 40-74 [facility] NortheastLymphocytes % (Manual)2018-11-08 06:23:00 * Test Item Value Reference Range Interpretation Comments Lymphocytes % (Manual) (test code = 737-7) 17 19-48 L [facility]Monocytes % (Manual)2018-11-08 06:23:00* Test Item Value Reference Range Interpretation Comments Monocytes % (Manual) (test code = 744-3) 9 3.4-9.0 [facility]Eosinophils % (Manual)2018-11-08 06:23:00 * Test Item Value Reference Range Interpretation Comments Eosinophils % (Manual) (test code = 714-6) 3 0-7 [facility] NortheastPlatelet Wnwyidcn8000-42-01 06:23:00* Test Item Value Reference Range Interpretation Comments Platelet Estimate (test code = 27855-5) MARKEDLY INCREASED [facility] NortheastPlate[facility] Morphology Dxxzazg0981-82-36 06:23:00* Test Item Value Reference Range Interpretation Comments Platelet Morphology Comment (test code = 39845-3) FEW LARGE [facility] NortheastRed Cell Morphology Cozqxlj2594-57-63 06:23:00* Test Item Value Reference Range Interpretation Comments Red Cell Morphology Comment (test code = 6742-1) [facility]AL [facility] Gpite[facility]39-74 05:37:00* Test Item Value Reference Range Interpretation Comments Sodium Level (test code = 2951-2) 135 136-145 L [facility] NortheastPotassium Ibosj0177-82-63 05:37:00* Test Item Value Reference Range Interpretation Comments Potassium Level (test code = 2823-3) 4.6 3.5-5.1 [facility] NortheastChloride Hjgxq9954-62-99 05:37:00* Test Item Value Reference Range Interpretation Comments Chloride Level (test code = 2075-0) 106 98-107 [facility] NortheastCarbon Dioxide Avzeo0791-72-06 05:37:00* Test Item Value Reference Range Interpretation Comments Carbon Dioxide Level (test code = 2028-9) 19 22-29 L [facility] NortheastAnion Rdo1859-36-72 05:37:00* Test Item Value Reference Range Interpretation Comments Anion Gap (test code = 48678-4) 14.6 8-16 [facility] NortheastBlood Urea Wvgztjub3356-64-10 05:37:00* Test Item Value Reference Range Interpretation Comments Blood Urea Nitrogen (test code = 3094-0) 30 7-26 H [facility] NortheastCreatinine2019-09-16 05:37:00* Test Item Value Reference Range Interpretation Comments Creatinine (test code = 2160-0) 3.35 0.72-1.25 H [facility] NortheastBUN/Creatinine Knqwb3184-14-55 05:37:00* Test Item Value Reference Range Interpretation Comments BUN/Creatinine Ratio (test code = 3097-3) 9 6-25 [facility] NortheastEstimat Glomerular Filtration Rate 2018-11-08 05:37:00* Test Item Value Reference Range Interpretation Comments Estimat Glomerular Filtration Rate (test code = 044212736) 21 >60 L Ranges were taken from the National Kidney Disease Education Program and the [facility] literature.Reference ranges:60 or greater: Goimrk02-83 ( for 3 consecutive months): Chronic kidney disease 15 or less: Kidney failureMethodist Hospital NortheastGlucose Qrtjb0396-81-94 05:37:00* Test Item Value Reference Range Interpretation Comments Glucose Level (test code = AWW3460) 125 74-118 H [facility] NortheastCalcium Dbwbc0966-79-26 05:37:00* Test Item Value Reference Range Interpretation Comments Calcium Level (test code = 03537-5) 8.4 8.4-10.2 [facility] NortheastWhite Blood Rwltn8802-68-25 05:26:00* Test Item Value Reference Range Interpretation Comments White Blood Count (test code = 6690-2) 4.49 4.8-10.8 L [facility] NortheastRed Blood Nurfq6230-18-19 05:26:00* Test Item Value Reference Range Interpretation Comments Red Blood Count (test code = 789-8) 3.94 4.3-5.7 L [facility] NortheastHemoglobin2019-09-16 05:26:00* Test Item Value Reference Range Interpretation Comments Hemoglobin (test code = 61151-4) 11.0 14.0-18.0 L [facility] NortheastHematocrit2019-09-16 05:26:00* Test Item Value Reference Range Interpretation Comments Hematocrit (test code = 4544-3) 34.1 38.2-49.6 L [facility] NortheastMean Corpuscular Rirtda6320-35-66 05:26:00* Test Item Value Reference Range Interpretation Comments Mean Corpuscular Volume (test code = 787-2) 86.5 81-99 [facility] NortheastMean Corpuscular Ibmzwqmmlb8573-67-85 05:26:00* Test Item Value Reference Range Interpretation Comments Mean Corpuscular Hemoglobin (test code = 785-6) 27.9 28-32 L [facility] NortheastMean Corpuscular Hemoglobin Concent 2018-11-08 05:26:00* Test Item Value Reference Range Interpretation Comments Mean Corpuscular Hemoglobin Concent (test code = 786-4) 32.3 31-35 [facility] NortheastRed Cell Distribution Sfkon3309-25-11 05:26:00* Test Item Value Reference Range Interpretation Comments Red Cell Distribution Width (test code = 53016-1) 15.9 11.7 -14.4 H [facility] NortheastPlatelet Isvfh9601-56-98 05:26:00* Test Item Value Reference Range Interpretation Comments Platelet Count (test code = 777-3) 101 140-360 L [facility] NortheastNeutrophils (%) (Auto)2018-11-08 05:26:00 * Test Item Value Reference Range Interpretation Comments Neutrophils (%) (Auto) (test code = 09905-9) 59.0 38.7-80.0 [facility] NortheastLymphocytes (%) (Auto)2018-11-08 05:26:00 * Test Item Value Reference Range Interpretation Comments Lymphocytes (%) (Auto) (test code = 736-9) 27.4 18.0-39.1 [facility] NortheastMonocytes (%) (Auto)2018-11-08 05:26:00* Test Item Value Reference Range Interpretation Comments Monocytes (%) (Auto) (test code = 5905-5) 7.6 4.4-11.3 [facility] NortheastEosinophils (%) (Auto)2018-11-08 05:26:00 * Test Item Value Reference Range Interpretation Comments Eosinophils (%) (Auto) (test code = 713-8) 4.9 0.0-6.0 [facility]Basophils (%) (Auto)2018-11-08 05:26:00* Test Item Value Reference Range Interpretation Comments Basophils (%) (Auto) (test code = 706-2) 0.7 0.0-1.0 [facility] NortheastIM GRANULOCYTES %2018-11-08 05:26:00* Test Item Value Reference Range Interpretation Comments IM GRANULOCYTES % (test code = IM GRANULOCYTES %) 0.4 0.0- 1.0 [facility] NortheastNeutrophils # (Auto)2018-11-08 05:26:00* Test Item Value Reference Range Interpretation Comments Neutrophils # (Auto) (test code = 751-8) 2.7 2.1-6.9 [facility] NortheastLymphocytes # (Auto)2018-11-08 05:26:00* Test Item Value Reference Range Interpretation Comments Lymphocytes # (Auto) (test code = 24486-7) 1.2 1.0-3.2 [facility] NortheastMonocytes # (Auto)2018-11-08 05:26:00* Test Item Value Reference Range Interpretation Comments Monocytes # (Auto) (test code = 742-7) 0.3 0.2-0.8 [facility] NortheastEosinophils # (Auto)2018-11-08 05:26:00* Test Item Value Reference Range Interpretation Comments Eosinophils # (Auto) (test code = 711-2) 0.2 0.0-0.4 [facility] NortheastBasophils # (Auto)2018-11-08 05:26:00* Test Item Value Reference Range Interpretation Comments Basophils # (Auto) (test code = 704-7) 0.0 0.0-0.1 [facility] NortheastAbsolute Immature Granulocyte (auto 2018-11-08 05:26:00* Test Item Value Reference Range Interpretation Comments Absolute Immature Granulocyte (auto (shin t code = Absolute Immature Granulocyte (auto) 0.02 0-0.1 [facility] NortheastMagnesium Vsctc0162-34-75 07:21:00* Test Item Value Reference Range Interpretation Comments Magnesium Level (test code = 95949-2) 1.5 1.3-2.1 [facility] NortheastMagnesium Kgvfc8480-40-81 07:21:00* Test Item Value Reference Range Interpretation Comments Magnesium Level (test code = 04481-2) 1.5 1.3-2.1 [facility] NortheastTotal Wlosucgzv1657-73-29 08:37:00* Test Item Value Reference Range Interpretation Comments Total Bilirubin (test code = 1975-2) 0.5 0.2-1.2 [facility] NortheastAspartate Amino Transf (AST/SGOT) 2018-11-05 08:37:00* Test Item Value Reference Range Interpretation Comments Aspartate Amino Transf (AST/SGOT) (test code = Aspartate Amino Transf (AST/SGOT)) 12 5-34 [facility] NortheastAlanine Aminotransferase (ALT/SGPT) 2018-11-05 08:37:00* Test Item Value Reference Range Interpretation Comments Alanine Aminotransferase (ALT/SGPT) (test code = 1742-6) 14 0-55 [facility] NortheastTotal Yjqtukk1981-28-80 08:37:00* Test Item Value Reference Range Interpretation Comments Total Protein (test code = 2885-2) 7.3 6.5-8.1 [facility] NortheastAlbumin2019-09-13 08:37:00* Test Item Value Reference Range Interpretation Comments Albumin (test code = 1751-7) 3.0 3.5-5.0 L [facility] NortheastGlobulin2019-09-13 08:37:00* Test Item Value Reference Range Interpretation Comments Globulin (test code = 22140-2) 4.3 2.3-3.5 H [facility] NortheastAlbumin/Globulin Nquqp3009-29-35 08:37:00 * Test Item Value Reference Range Interpretation Comments Albumin/Globulin Ratio (test code = 1759-0) 0.7 0.8-2.0 L [facility] NortheastAlkaline Wejmwiaubuq3848-53-65 08:37:00* Test Item Value Reference Range Interpretation Comments Alkaline Phosphatase (test code = 6768-6) 200 40-150 H [facility] Ouwoknv8222-96-63 05:38:00* Test Item Value Reference Range Interpretation Comments Blood Culture (test code = 48862912) NO GROWTH AFTER 5 DAYS, FINAL REPORT [facility] Atmjgvo6956-13-39 05:38:00* Test Item Value Reference Range Interpretation Comments Blood Culture (test code = 15630424) NO GROWTH AFTER 5 DAYS, FINAL REPORT [facility] Cucwlod6822-39-13 05:38:00* Test Item Value Reference Range Interpretation Comments Blood Culture (test code = 30173246) NO GROWTH AFTER 5 DAYS, FINAL REPORT [facility] Vmjnzzu1911-77-51 05:38:00* Test Item Value Reference Range Interpretation Comments Blood Culture (test code = 98174250) NO GROWTH AFTER 5 DAYS, FINAL REPORT [facility]2019-09-11 05:51:00* Test Item Value Reference Range Interpretation Comments Phosphorus Level (test code = MMJ5659) 5.4 2.3-4.7 H [facility]2019-09-11 05:51:00* Test Item Value Reference Range Interpretation Comments Phosphorus Level (test code = WBM6867) 5.4 2.3-4.7 H [facility] Fxavk5438-61-57 06:18:00* Test Item Value Reference Range Interpretation Comments Iron Level (test code = 2498-4) 50 65-175 L [facility] NortheastTotal Iron Binding Ucgmrjao1090-52-88 06:18:00* Test Item Value Reference Range Interpretation Comments Total Iron Binding Capacity (test code = 2500-7) 232 261-4 78 L [facility] NortheastPercent Iron Gpcnbxeagm2714-52-29 06:18:00* Test Item Value Reference Range Interpretation Comments Percent Iron Saturation (test code = 2502-3) 22 15-50 [facility] NortheastTransferrin2019-09-09 06:18:00* Test Item Value Reference Range Interpretation Comments Transferrin (test code = 3034-6) 166 174-364 L [facility]2019-09-09 06:18:00* Test Item Value Reference Range Interpretation Comments Iron Level (test code = 2498-4) 50 65-175 L [facility] Iron Binding Hflqkqkx5464-93-39 06:18:00* Test Item Value Reference Range Interpretation Comments Total Iron Binding Capacity (test code = 2500-7) 232 261-4 78 L [facility] Iron Xqedafhagp3003-35-50 06:18:00* Test Item Value Reference Range Interpretation Comments Percent Iron Saturation (test code = 2502-3) 22 15-50 [facility] NortheastTransferrin2019-09-09 06:18:00* Test Item Value Reference Range Interpretation Comments Transferrin (test code = 3034-6) 166 174-364 L [facility]2019-09-09 06:18:00* Test Item Value Reference Range Interpretation Comments Iron Level (test code = 2498-4) 50 65-175 L [facility] Iron Binding Otpzfrbx7821-55-84 06:18:00* Test Item Value Reference Range Interpretation Comments Total Iron Binding Capacity (test code = 2500-7) 232 261-4 78 L [facility] Iron Grpiwcfsmm7104-63-29 06:18:00* Test Item Value Reference Range Interpretation Comments Percent Iron Saturation (test code = 2502-3) 22 15-50 [facility]2019-09-09 06:18:00* Test Item Value Reference Range Interpretation Comments Transferrin (test code = 3034-6) 166 174-364 L [facility]2019-09-09 06:18:00* Test Item Value Reference Range Interpretation Comments Iron Level (test code = 2498-4) 50 65-175 L [facility] Iron Binding Ehozfmtb0679-42-37 06:18:00* Test Item Value Reference Range Interpretation Comments Total Iron Binding Capacity (test code = 2500-7) 232 261-4 78 L [facility] Iron Ifptbofbtw4329-37-70 06:18:00* Test Item Value Reference Range Interpretation Comments Percent Iron Saturation (test code = 2502-3) 22 15-50 [facility] NortheastTransferrin2019-09-09 06:18:00* Test Item Value Reference Range Interpretation Comments Transferrin (test code = 3034-6) 166 174-364 L [facility] NortheastUrine FKI9639-83-86 15:35:00* Test Item Value Reference Range Interpretation Comments Urine WBC (test code = 5821-4) >50 0-5 H [facility] NortheastU[facility] LAE3606-13-03 15:35:00* Test Item Value Reference Range Interpretation Comments Urine RBC (test code = 63621-8) >50 0-5 H [facility] NortheastU[facility] Vcuucoyn6207-19-96 15:35:00* Test Item Value Reference Range Interpretation Comments Urine Bacteria (test code = 90874-2) MANY NONE H [facility] Epithelial Esevl0670-54-79 15:35:00 * Test Item Value Reference Range Interpretation Comments Urine Epithelial Cells (test code = 35163-3) MANY NONE [facility] Jnpyl5685-57-86 15:11:00* Test Item Value Reference Range Interpretation Comments Urine Color (test code = 5778-6) YELLOW YELLOW [facility] Qtbxcwp2184-07-51 15:11:00* Test Item Value Reference Range Interpretation Comments Urine Clarity (test code = 50450-4) SL CLOUDY CLEAR H [facility] NortheastU[facility] Specific Xvdnlqn6125-84-63 15:11:00 * Test Item Value Reference Range Interpretation Comments Urine Specific [place] (test code = 5811-5) 1.025 1.010-1.02 5 [facility] xC9292-01-45 15:11:00* Test Item Value Reference Range Interpretation Comments Urine pH (test code = 91000-2) 6 5-7 [facility] Leukocyte Fcuujtsm0954-75-49 15:11:00* Test Item Value Reference Range Interpretation Comments Urine Leukocyte Esterase (test code = 03450-1) NEGATIVE NEGATIV E [facility] Uisibqs2523-55-41 15:11:00* Test Item Value Reference Range Interpretation Comments Urine Nitrite (test code = 73220-1) NEGATIVE NEGATIVE [facility] Geqbmnm2347-11-02 15:11:00* Test Item Value Reference Range Interpretation Comments Urine Protein (test code = 01634-3) 3+ NEGATIVE H [facility] NortheastU[facility] Glucose (UA)2018-10-31 15:11:00* Test Item Value Reference Range Interpretation Comments Urine Glucose (UA) (test code = 27499-6) NEGATIVE NEGATIVE [facility] Ifcwcod3180-26-59 15:11:00* Test Item Value Reference Range Interpretation Comments Urine Ketones (test code = 96960-9) NEGATIVE NEGATIVE [facility] Hjeemeplqxzb1875-54-67 15:11:00* Test Item Value Reference Range Interpretation Comments Urine Urobilinogen (test code = 84975-1) 0.2 0.2-1 [facility] Awggmhnbm4036-30-49 15:11:00* Test Item Value Reference Range Interpretation Comments Urine Bilirubin (test code = 1977-8) NEGATIVE NEGATIVE [facility] Broqd9872-00-08 15:11:00* Test Item Value Reference Range Interpretation Comments Urine Blood (test code = 24407-1) 3+ NEGATIVE [facility] NortheastCreat[facility] Kinase IX3135-12-05 08:40:00* Test Item Value Reference Range Interpretation Comments Creatine Kinase MB (test code = 40870-4) 1.60 0-5.0 [facility] NortheastTroponin S5363-44-26 08:40:00* Test Item Value Reference Range Interpretation Comments Troponin I (test code = LQS5798) 0.008 0-0.300 [facility] NortheastCreat[facility] Kinase EO0189-73-88 08:40:00* Test Item Value Reference Range Interpretation Comments Creatine Kinase MB (test code = 64891-2) 1.60 0-5.0 [facility] NortheastTroponin F4729-61-52 08:40:00* Test Item Value Reference Range Interpretation Comments Troponin I (test code = SVC9172) 0.008 0-0.300 [facility] NortheastCreat[facility] Kinase PT2008-71-02 08:40:00* Test Item Value Reference Range Interpretation Comments Creatine Kinase MB (test code = 63300-2) 1.60 0-5.0 [place] 94751019-09-08 08:40:00* Test Item Value Reference Range Interpretation Comments Troponin I (test code = IPX5844) 0.008 0-0.300 [facility]Creat[facility] Kinase NI7194-61-75 08:40:00* Test Item Value Reference Range Interpretation Comments Creatine Kinase MB (test code = 82009-2) 1.60 0-5.0 [place] 94751019-09-08 08:40:00* Test Item Value Reference Range Interpretation Comments Troponin I (test code = LJA3289) 0.008 0-0.300 [facility] NortheastCreat[facility] Kinase ZX0729-56-82 08:40:00* Test Item Value Reference Range Interpretation Comments Creatine Kinase MB (test code = 76354-2) 1.60 0-5.0 [place] 94751019-09-08 08:40:00* Test Item Value Reference Range Interpretation Comments Troponin I (test code = ZQV7591) 0.008 0-0.300 [facility] NortheastCreat[facility] Kinase RI3359-86-26 08:40:00* Test Item Value Reference Range Interpretation Comments Creatine Kinase MB (test code = 04825-8) 1.60 0-5.0 [place] 94751019-09-08 08:40:00* Test Item Value Reference Range Interpretation Comments Troponin I (test code = 14511-8) 0.008 0-0.300 [facility] Kinase WU6235-36-23 08:40:00* Test Item Value Reference Range Interpretation Comments Creatine Kinase MB (test code = 73760-5) 1.60 0-5.0 [place] 638129-09-08 08:40:00* Test Item Value Reference Range Interpretation Comments Troponin I (test code = 34725-7) 0.008 0-0.300 [facility]Creatine Jhzkgz4564-30-46 07:55:00* Test Item Value Reference Range Interpretation Comments Creatine Kinase (test code = 2157-6) 266 30-200 H [facility] NortheastCreatine Mezwtw0102-89-68 07:55:00* Test Item Value Reference Range Interpretation Comments Creatine Kinase (test code = 2157-6) 266 30-200 H [facility] NortheastCreatine Usagsb6598-48-86 07:55:00* Test Item Value Reference Range Interpretation Comments Creatine Kinase (test code = 2157-6) 266 30-200 H [facility] NortheastCreatine Rndnmw7458-59-37 07:55:00* Test Item Value Reference Range Interpretation Comments Creatine Kinase (test code = 2157-6) 266 30-200 H [facility] NortheastCreat[facility] Yeelnb5271-17-35 07:55:00* Test Item Value Reference Range Interpretation Comments Creatine Kinase (test code = 2157-6) 266 30-200 H [facility] NortheastCreatine Ebxkif6384-62-54 07:55:00* Test Item Value Reference Range Interpretation Comments Creatine Kinase (test code = 2157-6) 266 30-200 H [facility] NortheastCreatine Vrmscy5988-16-05 07:55:00* Test Item Value Reference Range Interpretation Comments Creatine Kinase (test code = 2157-6) 266 30-200 H [facility] NortheastCT [facility]BDOMEN/PELVIS WH4365-50-87 02:46:00 [facility] [address] [place] [address] Patient Name: MANJIT LUO MR #: [id number] : 1980 Age/Sex: 38/M Req #: [id number] Adm Physician: Ordered by: BEV FLORES MD Report #: [id number] Location: ER Room/Bed: Procedure: [id number] CT/CT ABDOMEN/PELVIS WO Exam Date: 10/31/18 Exam [...] 10/31/18252 COPY TO: BEV FLORES MD Bedside Gzwjkrq9696-27-73 07:32:00* Test Item Value Reference Range Interpretation Comments Bedside Glucose (test code = 41093-8) 106 70-120 Meter ID: [id number] [facility] 2018-10-29 07:01:00* Test Item Value Reference Range Interpretation Comments Sodium Level (test code = 2951-2) 138 136-145 [facility] Gdajm3800-98-86 07:01:00* Test Item Value Reference Range Interpretation Comments Potassium Level (test code = 2823-3) 4.5 3.5-5.1 [facility] NortheastChloride Jnsoh6039-03-86 07:01:00* Test Item Value Reference Range Interpretation Comments Chloride Level (test code = 2075-0) 103 98-107 [facility] NortheastCarbon Dioxide Swhuf6478-49-45 07:01:00* Test Item Value Reference Range Interpretation Comments Carbon Dioxide Level (test code = 8-9) 24 22-29 [facility] NortheastAnion Dqw4085-78-98 07:01:00* Test Item Value Reference Range Interpretation Comments Anion Gap (test code = 79835-0) 15.5 8-16 [facility] NortheastBlood Urea Kpheqwia9288-01-00 07:01:00* Test Item Value Reference Range Interpretation Comments Blood Urea Nitrogen (test code = 3094-0) 29 7-26 H [facility] NortheastCreatinine2019-09-06 07:01:00* Test Item Value Reference Range Interpretation Comments Creatinine (test code = 2160-0) 3.71 0.72-1.25 H [facility] NortheastBUN/Creatinine Fvgvp7286-71-83 07:01:00* Test Item Value Reference Range Interpretation Comments BUN/Creatinine Ratio (test code = 3097-3) 8 6-25 [facility] NortheastEstimat Glomerular Filtration Rate 2018-10-29 07:01:00* Test Item Value Reference Range Interpretation Comments Estimat Glomerular Filtration Rate (test code = 768153317) 18 >60 L Ranges were taken from the National Kidney Disease Education Program and the [facility] literature.Reference ranges:60 or greater: Noxdzb36-97 ( for 3 consecutive months): Chronic kidney disease 15 or less: Kidney failureMethodist Hospital NortheastGlucose Elzaq7086-92-30 07:01:00* Test Item Value Reference Range Interpretation Comments Glucose Level (test code = CSE2725) 104 74-118 [facility] NortheastCalcium Yyorb6075-27-92 07:01:00* Test Item Value Reference Range Interpretation Comments Calcium Level (test code = 21406-1) 8.2 8.4-10.2 L [facility] NortheastWhite Blood Enmvd8504-15-40 06:31:00* Test Item Value Reference Range Interpretation Comments White Blood Count (test code = 6690-2) 5.14 4.8-10.8 [facility] NortheastRed Blood Zkiph5754-17-65 06:31:00* Test Item Value Reference Range Interpretation Comments Red Blood Count (test code = 789-8) 3.56 4.3-5.7 L [facility] NortheastHemoglobin2019-09-06 06:31:00* Test Item Value Reference Range Interpretation Comments Hemoglobin (test code = 37425-0) 9.8 14.0-18.0 L [facility] NortheastHematocrit2019-09-06 06:31:00* Test Item Value Reference Range Interpretation Comments Hematocrit (test code = 4544-3) 30.4 38.2-49.6 L [facility] NortheastMean Corpuscular Kjcuic4672-73-83 06:31:00* Test Item Value Reference Range Interpretation Comments Mean Corpuscular Volume (test code = 787-2) 85.4 81-99 [facility] NortheastMean Corpuscular Mobzyudoyo5657-86-25 06:31:00* Test Item Value Reference Range Interpretation Comments Mean Corpuscular Hemoglobin (test code = 785-6) 27.5 28-32 L [facility] NortheastMean Corpuscular Hemoglobin Concent 2018-10-29 06:31:00* Test Item Value Reference Range Interpretation Comments Mean Corpuscular Hemoglobin Concent (test code = 786-4) 32.2 31-35 [facility] NortheastRed Cell Distribution Lbene8955-61-44 06:31:00* Test Item Value Reference Range Interpretation Comments Red Cell Distribution Width (test code = 64153-5) 15.0 11.7 -14.4 H [facility] NortheastPlatelet Tyiiy5385-29-77 06:31:00* Test Item Value Reference Range Interpretation Comments Platelet Count (test code = 777-3) 103 140-360 L [facility] NortheastNeutrophils (%) (Auto)2018-10-29 06:31:00 * Test Item Value Reference Range Interpretation Comments Neutrophils (%) (Auto) (test code = 93647-9) 56.2 38.7-80.0 [facility] NortheastLymphocytes (%) (Auto)2018-10-29 06:31:00 * Test Item Value Reference Range Interpretation Comments Lymphocytes (%) (Auto) (test code = 736-9) 33.7 18.0-39.1 [facility] NortheastMonocytes (%) (Auto)2018-10-29 06:31:00* Test Item Value Reference Range Interpretation Comments Monocytes (%) (Auto) (test code = 5905-5) 6.2 4.4-11.3 [facility] NortheastEosinophils (%) (Auto)2018-10-29 06:31:00 * Test Item Value Reference Range Interpretation Comments Eosinophils (%) (Auto) (test code = 713-8) 2.7 0.0-6.0 [facility] NortheastBasophils (%) (Auto)2018-10-29 06:31:00* Test Item Value Reference Range Interpretation Comments Basophils (%) (Auto) (test code = 706-2) 0.4 0.0-1.0 [facility] NortheastIM GRANULOCYTES %2018-10-29 06:31:00* Test Item Value Reference Range Interpretation Comments IM GRANULOCYTES % (test code = IM GRANULOCYTES %) 0.8 0.0- 1.0 [facility] NortheastNeutrophils # (Auto)2018-10-29 06:31:00* Test Item Value Reference Range Interpretation Comments Neutrophils # (Auto) (test code = 751-8) 2.9 2.1-6.9 [facility] NortheastLymphocytes # (Auto)2018-10-29 06:31:00* Test Item Value Reference Range Interpretation Comments Lymphocytes # (Auto) (test code = 11910-9) 1.7 1.0-3.2 [facility] NortheastMonocytes # (Auto)2018-10-29 06:31:00* Test Item Value Reference Range Interpretation Comments Monocytes # (Auto) (test code = 742-7) 0.3 0.2-0.8 [facility] NortheastEosinophils # (Auto)2018-10-29 06:31:00* Test Item Value Reference Range Interpretation Comments Eosinophils # (Auto) (test code = 711-2) 0.1 0.0-0.4 [facility] NortheastBasophils # (Auto)2018-10-29 06:31:00* Test Item Value Reference Range Interpretation Comments Basophils # (Auto) (test code = 704-7) 0.0 0.0-0.1 [facility] NortheastAbsute Immature Granulocyte (auto 2018-10-29 06:31:00* Test Item Value Reference Range Interpretation Comments Absolute Immature Granulocyte (auto (shin t code = Absolute Immature Granulocyte (auto) 0.04 0-0.1 [facility] Occult Psjpk6560-68-62 16:26:00* Test Item Value Reference Range Interpretation Comments Stool Occult Blood (test code = 2335-8) NEGATIVE NEGATIVE [facility] Occult Gjzew7271-71-41 16:26:00* Test Item Value Reference Range Interpretation Comments Stool Occult Blood (test code = 2335-8) NEGATIVE NEGATIVE [facility] Occult Dobbs3044-61-73 16:26:00* Test Item Value Reference Range Interpretation Comments Stool Occult Blood (test code = 2335-8) NEGATIVE NEGATIVE [facility] Occult Lvjkh2928-66-87 16:26:00* Test Item Value Reference Range Interpretation Comments Stool Occult Blood (test code = 2335-8) NEGATIVE NEGATIVE [facility] Occult Itqec7059-61-01 16:26:00* Test Item Value Reference Range Interpretation Comments Stool Occult Blood (test code = 2335-8) NEGATIVE NEGATIVE [facility] Occult Mhxee8566-68-31 16:26:00* Test Item Value Reference Range Interpretation Comments Stool Occult Blood (test code = 2335-8) NEGATIVE NEGATIVE [facility] Occult Tmtzn1856-27-10 16:26:00* Test Item Value Reference Range Interpretation Comments Stool Occult Blood (test code = 2335-8) NEGATIVE NEGATIVE [facility] Occult Jblfr5586-12-37 16:26:00* Test Item Value Reference Range Interpretation Comments Stool Occult Blood (test code = 2335-8) NEGATIVE NEGATIVE [facility] gastrointestinal hemoglobin ozrljdeuq9542-42-62 15:53:00* Test Item Value Reference Range Interpretation Comments Stool Occult Blood (test code = 2335-8) NEGATIVE [facility]GATIVE [facility] hynflttpj3867-96-08 15:53:00* Test Item Value Reference Range Interpretation Comments Stool Occult Blood (test code = 2335-8) NEGATIVE NEGATIVE [facility] NortheastUrine Yvbvkye3790-48-71 07:43:00* Test Item Value Reference Range Interpretation Comments Urine Culture (test code = 630-4) Organism: PSEUDOMONAS AERUGINOSA [facility] Biklikr8120-94-40 07:43:00* Test Item Value Reference Range Interpretation Comments Urine Culture (test code = 630-4) Organism: PSEUDOMONAS AERUGINOSA [facility] Ebfnedh2649-93-82 07:43:00* Test Item Value Reference Range Interpretation Comments Urine Culture (test code = 630-4) Organism: PSEUDOMONAS AERUGINOSA [facility] Vnqcyon8185-24-69 07:43:00* Test Item Value Reference Range Interpretation Comments Urine Culture (test code = 630-4) No Result Data Provided [facility] Qybhjvb1238-58-48 07:43:00* Test Item Value Reference Range Interpretation Comments Urine Culture (test code = 630-4) No Result Data Provided [facility]RE[facility] W/IKKUD1592-79-84 17:45:00 [facility] [address] [place] [address] Patient Name: MANJIT LUO MR #: [id number] : 1980 Age/Sex: 38/M Req #: [id number] Adm Physician: ABHIJIT YODER MD Ordered by: CASTRO JALLOH MD Report #: [id number] [facility] Room/Bed: [facility] Procedure: [id number] NM/RE NAL SCAN W/LASIX Exam Date: Exam [...] of the left kidney is prompt. The izaiah irby has a elongated reniform shape with moderate [...] 6:04 PM Dictated By: YULY PERALTA MD Electronicall y Signed By: YULY PERALTA MD on 10/21/181803 Transcribed By: TIFFANY on 1803 COPY TO: CASTRO JALLOH MD Urine Pykqdsm3837-72-79 14:00:00* Test Item Value Reference Range Interpretation Comments Urine Culture (test code = 630-4) Organism: STAPHYLOCOCCUS AUREUS [facility] Jeorndd7922-72-82 14:00:00* Test Item Value Reference Range Interpretation Comments Urine Culture (test code = 630-4) Organism: STAPHYLOCOCCUS AUREUS [facility] NortheastUrine Khfpavc4614-41-25 14:00:00* Test Item Value Reference Range Interpretation Comments Urine Culture (test code = 630-4) Organism: STAPHYLOCOCCUS AUREUS [facility] NortheastUrine Woidyxx3954-51-95 14:00:00* Test Item Value Reference Range Interpretation Comments Urine Culture (test code = 630-4) No Result Data Provided [facility] NortheastU[facility] Daljent1447-73-08 14:00:00* Test Item Value Reference Range Interpretation Comments Urine Culture (test code = 630-4) No Result Data Provided [facility] NortheastFerritin2019-08-27 06:53:00* Test Item Value Reference Range Interpretation Comments Ferritin (test code = 2276-4) 242.22 21.81-274.66 [facility] NortheastFerritin2019-08-27 06:53:00* Test Item Value Reference Range Interpretation Comments Ferritin (test code = 2276-4) 242.22 21.81-274.66 [facility] NortheastFerritin2019-08-27 06:53:00* Test Item Value Reference Range Interpretation Comments Ferritin (test code = 2276-4) 242.22 21.81-274.66 [facility] NortheastMagnesium Dzfbp2926-29-97 06:25:00* Test Item Value Reference Range Interpretation Comments Magnesium Level (test code = 69275-8) 1.2 1.3-2.1 L [facility] NortheastIron Ctmpz6693-07-17 06:25:00* Test Item Value Reference Range Interpretation Comments Iron Level (test code = 2498-4) 66 65-175 [facility] NortheastTotal Iron Binding Rkvkfuwm3244-15-26 06:25:00* Test Item Value Reference Range Interpretation Comments Total Iron Binding Capacity (test code = 2500-7) 197 261-4 78 L [facility] NortheastPercent Iron Ulpvscoedx0831-90-05 06:25:00* Test Item Value Reference Range Interpretation Comments Percent Iron Saturation (test code = 2502-3) 34 15-50 [facility] NortheastTransferrin2019-08-27 06:25:00* Test Item Value Reference Range Interpretation Comments Transferrin (test code = 3034-6) 141 174-364 L [facility] NortheastPhosphorus Kqhvx5284-97-76 12:53:00* Test Item Value Reference Range Interpretation Comments Phosphorus Level (test code = OES2005) 5.0 2.3-4.7 H [facility] NortheastCT ABDOMEN/PELVIS VD5385-28-46 09:50:00 [place] [address] Patient Name: MANJIT LUO MR #: [id number] : 1980 Age/Sex: 38/M Req #: [id number] Adm Physician: ABHIJIT YODER MD Ordered by: ABHIJIT YODER MD Report #: [id number] Location: MED/SURG Room/Bed: 110-1 Procedure: [id number] CT/CT ABDOMEN/PELVIS WO Exam Date: 10/18/18 Exam [...] MD 1000 COPY TO: ABHIJIT YODER Ionized Edogbrh6031-26-80 09:47:00* Test Item Value Reference Range Interpretation Comments Ionized Calcium (test code = 90569-7) 1.0 1.09-1.30 L [facility] NortheastIonized Lugagzg0245-55-83 09:47:00* Test Item Value Reference Range Interpretation Comments Ionized Calcium (test code = 81158-8) 1.0 1.09-1.30 L [facility] NortheastIonized Denjfuu5861-03-04 09:47:00* Test Item Value Reference Range Interpretation Comments Ionized Calcium (test code = 15172-2) 1.0 1.09-1.30 L [facility] NortheastTotal Brnykkebo4352-96-74 06:16:00* Test Item Value Reference Range Interpretation Comments Total Bilirubin (test code = 1975-2) 0.3 0.2-1.2 [facility] NortheastAspartate Amino Transf (AST/SGOT) 2018-10-18 06:16:00* Test Item Value Reference Range Interpretation Comments Aspartate Amino Transf (AST/SGOT) (test code = Aspartate Amino Transf (AST/SGOT)) 118 5-34 H [facility] NortheastAlanine Aminotransferase (ALT/SGPT) 2018-10-18 06:16:00* Test Item Value Reference Range Interpretation Comments Alanine Aminotransferase (ALT/SGPT) (test code = 1742-6) 107 0-55 H [facility] NortheastTotal Bqgpeil4355-18-18 06:16:00* Test Item Value Reference Range Interpretation Comments Total Protein (test code = 2885-2) 6.5 6.5-8.1 [facility] NortheastAlbumin2019-08-26 06:16:00* Test Item Value Reference Range Interpretation Comments Albumin (test code = 1751-7) 2.7 3.5-5.0 L [facility] NortheastGlobulin2019-08-26 06:16:00* Test Item Value Reference Range Interpretation Comments Globulin (test code = 29731-8) 3.8 2.3-3.5 H [facility] NortheastAlbumin/Globulin Btvii7836-03-87 06:16:00 * Test Item Value Reference Range Interpretation Comments Albumin/Globulin Ratio (test code = 1759-0) 0.7 0.8-2.0 L [facility] NortheastAlkaline Yjsiowfzjwq6929-30-39 06:16:00* Test Item Value Reference Range Interpretation Comments Alkaline Phosphatase (test code = 6768-6) 306 40-150 H [facility] NortheastUrine Chdym9345-48-75 02:26:00* Test Item Value Reference Range Interpretation Comments Urine Color (test code = 5778-6) YELLOW YELLOW [facility] NortheastU[facility] Vwmvstz7274-51-54 02:26:00* Test Item Value Reference Range Interpretation Comments Urine Clarity (test code = 98743-3) CLOUDY CLEAR H [facility] NortheastUrine Specific Nwqvzvg7675-02-78 02:26:00 * Test Item Value Reference Range Interpretation Comments Urine Specific [place] (test code = 5811-5) 1.020 1.010-1.02 5 [facility] NortheastUrine rY1851-83-40 02:26:00* Test Item Value Reference Range Interpretation Comments Urine pH (test code = 01209-4) 6 5-7 [facility] NortheastU[facility] Leukocyte Pntnnjgy3823-83-36 02:26:00* Test Item Value Reference Range Interpretation Comments Urine Leukocyte Esterase (test code = 5799-2) 2+ NEGATIVE H [facility] NortheastUrine Phsnhgz2961-32-98 02:26:00* Test Item Value Reference Range Interpretation Comments Urine Nitrite (test code = 16855-9) NEGATIVE NEGATIVE [facility] NortheastUrine Xsrfkoi1685-67-03 02:26:00* Test Item Value Reference Range Interpretation Comments Urine Protein (test code = 5804-0) 3+ NEGATIVE H [facility] NortheastUrine Glucose (UA)2018-10-17 02:26:00* Test Item Value Reference Range Interpretation Comments Urine Glucose (UA) (test code = 2349-9) NEGATIVE NEGATIVE [facility] NortheastUrine Wxdraar7121-96-04 02:26:00* Test Item Value Reference Range Interpretation Comments Urine Ketones (test code = 66996-7) NEGATIVE NEGATIVE [facility] NortheastUrine Pemyxipkulae4098-83-00 02:26:00* Test Item Value Reference Range Interpretation Comments Urine Urobilinogen (test code = 48576-2) 0.2 0.2-1 [facility] NortheastUrine Jdafvfnfv8907-36-91 02:26:00* Test Item Value Reference Range Interpretation Comments Urine Bilirubin (test code = 1978-6) NEGATIVE NEGATIVE [facility] NortheastU[facility] Dtidw1231-97-94 02:26:00* Test Item Value Reference Range Interpretation Comments Urine Blood (test code = 28903-0) 3+ NEGATIVE H [facility] NortheastUrine EBW0430-66-54 02:26:00* Test Item Value Reference Range Interpretation Comments Urine WBC (test code = 5821-4) >50 0-5 H [facility] NortheastUrine LQJ4065-39-51 02:26:00* Test Item Value Reference Range Interpretation Comments Urine RBC (test code = 18994-6) >50 0-5 H [facility] NortheastUrine Vdaqevxw1805-66-24 02:26:00* Test Item Value Reference Range Interpretation Comments Urine Bacteria (test code = 90797-1) MANY NONE H [facility] NortheastUrine Epithelial Ksjhb0263-68-44 02:26:00 * Test Item Value Reference Range Interpretation Comments Urine Epithelial Cells (test code = 78673-1) MODERATE NONE [facility] Yvcls1665-02-33 13:40:00* Test Item Value Reference Range Interpretation Comments Sodium Level (test code = 2951-2) 142 136-145 [facility] NortheastPotassium Zorhc1191-33-06 13:40:00* Test Item Value Reference Range Interpretation Comments Potassium Level (test code = 2823-3) 4.4 3.5-5.1 [facility] NortheastChloride Bmjon5050-62-02 13:40:00* Test Item Value Reference Range Interpretation Comments Chloride Level (test code = 2075-0) 107 98-107 [facility] NortheastCarbon Dioxide Nkuqn1420-99-16 13:40:00* Test Item Value Reference Range Interpretation Comments Carbon Dioxide Level (test code = 2028-9) 25 22-29 [facility] NortheastAnion Zso8586-65-27 13:40:00* Test Item Value Reference Range Interpretation Comments Anion Gap (test code = 73195-4) 14.4 8-16 [facility] NortheastBlood Urea Fbsideix8989-55-13 13:40:00* Test Item Value Reference Range Interpretation Comments Blood Urea Nitrogen (test code = 3094-0) 34 7-26 H [facility] NortheastCreatinine2019-05-05 13:40:00* Test Item Value Reference Range Interpretation Comments Creatinine (test code = 2160-0) 2.63 0.72-1.25 H [facility] NortheastBUN/Creatinine Yclnx9369-98-05 13:40:00* Test Item Value Reference Range Interpretation Comments BUN/Creatinine Ratio (test code = 3097-3) 13 6-25 [facility] NortheastEstimat Glomerular Filtration Rate 2018-06-27 13:40:00* Test Item Value Reference Range Interpretation Comments Estimat Glomerular Filtration Rate (test code = 762674029) 28 >60 L Ranges were taken from the National Kidney Disease Education Program and the [facility] Foundation literature.Reference ranges:60 or greater: Rnrbla62-10 ( for 3 consecutive months): Chronic kidney disease 15 or less: Kidney failureMethodist Hospital NortheastGlucose Mwvrc3254-75-34 13:40:00* Test Item Value Reference Range Interpretation Comments Glucose Level (test code = YVG9135) 105 74-118 [facility] NortheastCalcium Uvbsi4588-86-33 13:40:00* Test Item Value Reference Range Interpretation Comments Calcium Level (test code = 93650-7) 7.1 8.4-10.2 L [facility] NortheastBedside Howaddg7681-38-62 11:50:00* Test Item Value Reference Range Interpretation Comments Bedside Glucose (test code = 46916-0) 160 70-120 H Meter ID: [id number] Hospital AtascosaBlood Culture 2018-06-25 17:11:00* Test Item Value Reference Range Interpretation Comments Blood Culture (test code = 14308212) NO GROWTH AFTER 5 DAYS, FINAL REPORT [facility] Zvwcecz2136-99-82 17:11:00* Test Item Value Reference Range Interpretation Comments Blood Culture (test code = 28232196) NO GROWTH AFTER 5 DAYS, FINAL REPORT [facility] NortheastWhite Blood Aqdge9357-97-96 06:01:00* Test Item Value Reference Range Interpretation Comments White Blood Count (test code = 6690-2) 4.22 4.8-10.8 L [facility] NortheastRed Blood Oevxi6512-02-27 06:01:00* Test Item Value Reference Range Interpretation Comments Red Blood Count (test code = 789-8) 3.20 4.3-5.7 L [facility] NortheastHemoglobin2019-05-03 06:01:00* Test Item Value Reference Range Interpretation Comments Hemoglobin (test code = 43125-4) 8.6 14.0-18.0 L [facility] NortheastHematocrit2019-05-03 06:01:00* Test Item Value Reference Range Interpretation Comments Hematocrit (test code = 4544-3) 26.0 38.2-49.6 L [facility] NortheastMean Corpuscular Alqnza5109-49-68 06:01:00* Test Item Value Reference Range Interpretation Comments Mean Corpuscular Volume (test code = 787-2) 81.3 81-99 [facility] NortheastMean Corpuscular Quvjnribon2021-87-51 06:01:00* Test Item Value Reference Range Interpretation Comments Mean Corpuscular Hemoglobin (test code = 785-6) 26.9 28-32 L [facility] NortheastMean Corpuscular Hemoglobin Concent 2018-06-25 06:01:00* Test Item Value Reference Range Interpretation Comments Mean Corpuscular Hemoglobin Concent (test code = 786-4) 33.1 31-35 [facility] NortheastRed Cell Distribution Bfuoo5976-24-78 06:01:00* Test Item Value Reference Range Interpretation Comments Red Cell Distribution Width (test code = 24442-8) 13.7 11.7 -14.4 [facility] NortheastPlatelet Uyhqh3943-34-07 06:01:00* Test Item Value Reference Range Interpretation Comments Platelet Count (test code = 777-3) 147 140-360 [facility] NortheastNeutrophils (%) (Auto)2018-06-25 06:01:00 * Test Item Value Reference Range Interpretation Comments Neutrophils (%) (Auto) (test code = 34474-0) 56.1 38.7-80.0 [facility] NortheastLymphocytes (%) (Auto)2018-06-25 06:01:00 * Test Item Value Reference Range Interpretation Comments Lymphocytes (%) (Auto) (test code = 736-9) 32.0 18.0-39.1 [facility] NortheastMonocytes (%) (Auto)2018-06-25 06:01:00* Test Item Value Reference Range Interpretation Comments Monocytes (%) (Auto) (test code = 5905-5) 5.7 4.4-11.3 [facility] NortheastEosinophils (%) (Auto)2018-06-25 06:01:00 * Test Item Value Reference Range Interpretation Comments Eosinophils (%) (Auto) (test code = 713-8) 3.8 0.0-6.0 [facility] NortheastBasophils (%) (Auto)2018-06-25 06:01:00* Test Item Value Reference Range Interpretation Comments Basophils (%) (Auto) (test code = 706-2) 0.5 0.0-1.0 [facility] NortheastIM GRANULOCYTES %2018-06-25 06:01:00* Test Item Value Reference Range Interpretation Comments IM GRANULOCYTES % (test code = IM GRANULOCYTES %) 1.9 0.0- 1.0 H [facility] NortheastNeutrophils # (Auto)2018-06-25 06:01:00* Test Item Value Reference Range Interpretation Comments Neutrophils # (Auto) (test code = 751-8) 2.4 2.1-6.9 [facility] NortheastLymphocytes # (Auto)2018-06-25 06:01:00* Test Item Value Reference Range Interpretation Comments Lymphocytes # (Auto) (test code = 22063-8) 1.4 1.0-3.2 [facility] NortheastMonocytes # (Auto)2018-06-25 06:01:00* Test Item Value Reference Range Interpretation Comments Monocytes # (Auto) (test code = 742-7) 0.2 0.2-0.8 [facility] NortheastEosinophils # (Auto)2018-06-25 06:01:00* Test Item Value Reference Range Interpretation Comments Eosinophils # (Auto) (test code = 711-2) 0.2 0.0-0.4 [facility] NortheastBasophils # (Auto)2018-06-25 06:01:00* Test Item Value Reference Range Interpretation Comments Basophils # (Auto) (test code = 704-7) 0.0 0.0-0.1 [facility] NortheastAbsolute Immature Granulocyte (auto 2018-06-25 06:01:00* Test Item Value Reference Range Interpretation Comments Absolute Immature Granulocyte (auto (shin t code = Absolute Immature Granulocyte (auto) 0.08 0-0.1 [facility] NortheastFerritin2019-05-01 08:32:00* Test Item Value Reference Range Interpretation Comments Ferritin (test code = 2276-4) 273.51 21.81-274.66 [facility] Xnjds8485-67-43 06:46:00* Test Item Value Reference Range Interpretation Comments Iron Level (test code = 2498-4) 71 65-175 [facility]Total Iron Binding Glvdehcw3694-62-50 06:46:00* Test Item Value Reference Range Interpretation Comments Total Iron Binding Capacity (test code = 2500-7) 217 261-4 78 L [facility]Percent Iron Uwrltoerym1424-12-79 06:46:00* Test Item Value Reference Range Interpretation Comments Percent Iron Saturation (test code = 2502-3) 33 15-50 [facility]Transferrin2019-05-01 06:46:00* Test Item Value Reference Range Interpretation Comments Transferrin (test code = 3034-6) 155 174-364 L [facility]Phosphorus Kjqag0537-47-29 06:11:00* Test Item Value Reference Range Interpretation Comments Phosphorus Level (test code = WUE4870) 4.8 2.3-4.7 H [facility]Magnesium Wmqrv6332-59-91 06:11:00* Test Item Value Reference Range Interpretation Comments Magnesium Level (test code = 69526-5) 1.2 1.3-2.1 L [facility] Random Total Qijyajw5159-84-29 18:31:00* Test Item Value Reference Range Interpretation Comments Urine Random Total Protein (test code = 2888-6) 227.6 1-14 [facility] Protein/Creatinine Inrcv9115-87-29 18:31:00* Test Item Value Reference Range Interpretation Comments Urine Protein/Creatinine Ratio (test code = 17751-6) 2.00 [facility] Total Ndfaogl8342-58-59 18:31:00* Test Item Value Reference Range Interpretation Comments Urine Random Total Protein (test code = 2888-6) 227.6 1-14 [facility] Protein/Creatinine Omwbg8616-94-09 18:31:00* Test Item Value Reference Range Interpretation Comments Urine Protein/Creatinine Ratio (test code = 99946-6) 2.00 [facility] Random Total Attcnoy8677-67-52 18:31:00* Test Item Value Reference Range Interpretation Comments Urine Random Total Protein (test code = 2888-6) 227.6 1-14 [facility] Protein/Creatinine Qjvag8874-06-24 18:31:00* Test Item Value Reference Range Interpretation Comments Urine Protein/Creatinine Ratio (test code = 81885-8) 2.00 [facility] Total Larefqn4778-44-40 18:31:00* Test Item Value Reference Range Interpretation Comments Urine Random Total Protein (test code = 2888-6) 227.6 1-14 [facility] Protein/Creatinine Dylol8854-68-18 18:31:00* Test Item Value Reference Range Interpretation Comments Urine Protein/Creatinine Ratio (test code = 10251-7) 2.00 [facility] Total Hohvbll0062-86-87 18:31:00* Test Item Value Reference Range Interpretation Comments Urine Random Total Protein (test code = 2888-6) 227.6 1-14 [facility] Protein/Creatinine Zyktw6524-60-36 18:31:00* Test Item Value Reference Range Interpretation Comments Urine Protein/Creatinine Ratio (test code = 56886-2) 2.00 [facility] Total Ueymdfn6084-82-35 18:31:00* Test Item Value Reference Range Interpretation Comments Urine Random Total Protein (test code = 2888-6) 227.6 1-14 [facility] Protein/Creatinine Dbhad5688-37-01 18:31:00* Test Item Value Reference Range Interpretation Comments Urine Protein/Creatinine Ratio (test code = 72868-6) 2.00 [facility] Klfcqogfba0459-40-82 18:19:00* Test Item Value Reference Range Interpretation Comments Urine Creatinine (test code = 2161-8) 76.55 63-166 [facility] Irfrxhxtwd6066-98-14 18:19:00* Test Item Value Reference Range Interpretation Comments Urine Creatinine (test code = 2161-8) 76.55 63-166 [facility] Qfnngxtest5754-85-46 18:19:00* Test Item Value Reference Range Interpretation Comments Urine Creatinine (test code = 2161-8) 76.55 63-166 [facility] Clcsgttids9162-74-11 18:19:00* Test Item Value Reference Range Interpretation Comments Urine Creatinine (test code = 2161-8) 76.55 63-166 [facility] Jgalkkpoll1329-93-82 18:19:00* Test Item Value Reference Range Interpretation Comments Urine Creatinine (test code = 2161-8) 76.55 63-166 [facility] Ratlsjfciy9432-38-88 18:19:00* Test Item Value Reference Range Interpretation Comments Urine Creatinine (test code = 2161-8) 76.55 63-166 [facility]Total Ldwlmzsxy9429-15-68 06:25:00* Test Item Value Reference Range Interpretation Comments Total Bilirubin (test code = 1975-2) 0.2 0.2-1.2 [facility] NortheastAspartate Amino Transf (AST/SGOT) 2018-06-22 06:25:00* Test Item Value Reference Range Interpretation Comments Aspartate Amino Transf (AST/SGOT) (test code = Aspartate Amino Transf (AST/SGOT)) 86 5-34 [facility] NortheastAlanine Aminotransferase (ALT/SGPT) 2018-06-22 06:25:00* Test Item Value Reference Range Interpretation Comments Alanine Aminotransferase (ALT/SGPT) (test code = 1742-6) 76 0-55 [facility]Total Amjzwxh5950-31-91 06:25:00* Test Item Value Reference Range Interpretation Comments Total Protein (test code = 2885-2) 6.8 6.5-8.1 [facility]Albumin2019-04-30 06:25:00* Test Item Value Reference Range Interpretation Comments Albumin (test code = 1751-7) 2.1 3.5-5.0 L [facility]Globulin2019-04-30 06:25:00* Test Item Value Reference Range Interpretation Comments Globulin (test code = 91719-9) 4.7 2.3-3.5 H [facility] NortheastAlbumin/Globulin Lkaak9675-54-60 06:25:00 * Test Item Value Reference Range Interpretation Comments Albumin/Globulin Ratio (test code = 1759-0) 0.4 0.8-2.0 L [facility] NortheastAlkaline Kvynpiwjpiu1677-11-88 06:25:00* Test Item Value Reference Range Interpretation Comments Alkaline Phosphatase (test code = 6768-6) 265 40-150 [facility] NortheastHemoglobin A1c Flkcpbj1072-05-80 06:11:00 * Test Item Value Reference Range Interpretation Comments Hemoglobin A1c Percent (test code = Hemoglobin A1c Percent) 5.7 4.0-7.0 [facility]Hem[facility] A1c Uesgbtl3522-26-08 06:11:00 * Test Item Value Reference Range Interpretation Comments Hemoglobin A1c Percent (test code = Hemoglobin A1c Percent) 5.7 4.0-7.0 [facility]Hem[facility] A1c Omuzxpx6863-35-27 06:11:00 * Test Item Value Reference Range Interpretation Comments Hemoglobin A1c Percent (test code = Hemoglobin A1c Percent) 5.7 4.0-7.0 [facility] A1c Zftlovj8725-76-59 06:11:00 * Test Item Value Reference Range Interpretation Comments Hemoglobin A1c Percent (test code = Hemoglobin A1c Percent) 5.7 4.0-7.0 [facility]Hem[facility] A1c Rgnaptn4998-90-76 06:11:00 * Test Item Value Reference Range Interpretation Comments Hemoglobin A1c Percent (test code = Hemoglobin A1c Percent) 5.7 4.0-7.0 [facility] A1c Uujoxmc1291-48-72 06:11:00 * Test Item Value Reference Range Interpretation Comments Hemoglobin A1c Percent (test code = Hemoglobin A1c Percent) 5.7 4.0-7.0 [facility] NortheastVitamin B12 Kqnxa9711-14-61 11:07:00* Test Item Value Reference Range Interpretation Comments Vitamin B12 Level (test code = 43942-3) 403 213-816 [facility]Folate2019-04-29 11:07:00* Test Item Value Reference Range Interpretation Comments Folate (test code = 2284-8) 7.2 7.0-15.4 [facility] B12 Svzhx7495-28-66 11:07:00* Test Item Value Reference Range Interpretation Comments Vitamin B12 Level (test code = 59908-0) 403 213-816 [facility]Folate2019-04-29 11:07:00* Test Item Value Reference Range Interpretation Comments Folate (test code = 2284-8) 7.2 7.0-15.4 [facility]Vit[facility] B12 Vbkfy9007-42-87 11:07:00* Test Item Value Reference Range Interpretation Comments Vitamin B12 Level (test code = 54239-4) 403 213-816 [facility]Folate2019-04-29 11:07:00* Test Item Value Reference Range Interpretation Comments Folate (test code = 2284-8) 7.2 7.0-15.4 [facility] B12 Gwgmr3815-42-75 11:07:00* Test Item Value Reference Range Interpretation Comments Vitamin B12 Level (test code = 34255-7) 403 213-816 [facility]Folate2019-04-29 11:07:00* Test Item Value Reference Range Interpretation Comments Folate (test code = 2284-8) 7.2 7.0-15.4 [facility] B12 Xtkkg5333-66-69 11:07:00* Test Item Value Reference Range Interpretation Comments Vitamin B12 Level (test code = 74728-2) 403 213-816 [facility]Folate2019-04-29 11:07:00* Test Item Value Reference Range Interpretation Comments Folate (test code = 2284-8) 7.2 7.0-15.4 [facility] B12 Cnllo8892-26-78 11:07:00* Test Item Value Reference Range Interpretation Comments Vitamin B12 Level (test code = 58206-9) 403 213-816 [facility]Folate2019-04-29 11:07:00* Test Item Value Reference Range Interpretation Comments Folate (test code = 2284-8) 7.2 7.0-15.4 [facility] NortheastThyroid Stimulating Hormone (TSH) 2018-06-21 11:06:00* Test Item Value Reference Range Interpretation Comments Thyroid Stimulating Hormone (TSH) (test code = 20002-7) 2.156 0.350-4.940 [facility]Thy[facility] Stimulating Hormone (TSH) 2018-06-21 11:06:00* Test Item Value Reference Range Interpretation Comments Thyroid Stimulating Hormone (TSH) (test code = 19235-1) 2.156 0.350-4.940 [facility]Th[facility] Stimulating Hormone (TSH) 2018-06-21 11:06:00* Test Item Value Reference Range Interpretation Comments Thyroid Stimulating Hormone (TSH) (test code = 23402-2) 2.156 0.350-4.940 [facility]Th[facility]ulating H[facility]one (TSH) 2018-06-21 11:06:00* Test Item Value Reference Range Interpretation Comments Thyroid Stimulating Hormone (TSH) (test code = 61459-4) 2.156 0.350-4.940 [facility]Th[facility] H[facility]one (TSH) 2018-06-21 11:06:00* Test Item Value Reference Range Interpretation Comments Thyroid Stimulating Hormone (TSH) (test code = 02072-9) 2.156 0.350-4.940 [facility]Th[facility] H[facility]one (TSH) 2018-06-21 11:06:00* Test Item Value Reference Range Interpretation Comments Thyroid Stimulating Hormone (TSH) (test code = 87069-0) 2.156 0.350-4.940 [facility] WTB6496-00-53 17:46:00* Test Item Value Reference Range Interpretation Comments Urine WBC (test code = 5821-4) >50 0-5 H [facility] COI3529-77-29 17:46:00* Test Item Value Reference Range Interpretation Comments Urine RBC (test code = 76066-7) >50 0-5 H [facility] Dgqmerrw8681-17-66 17:46:00* Test Item Value Reference Range Interpretation Comments Urine Bacteria (test code = 29223-6) MANY NONE [facility] Epithelial Fxhqg4623-60-91 17:46:00 * Test Item Value Reference Range Interpretation Comments Urine Epithelial Cells (test code = 10803-5) FEW NONE [facility] Fine Granular Goluu5398-76-66 17:46:00* Test Item Value Reference Range Interpretation Comments Urine Fine Granular Casts (test code = 11789-2) 1-5 >0 H [facility] Coarse Granular Dasdo7906-80-57 17:46:00* Test Item Value Reference Range Interpretation Comments Urine Coarse Granular Casts (test code = 46848-8) 1-5 >0 H [facility] Fine Granular Miqpz2579-88-19 17:46:00* Test Item Value Reference Range Interpretation Comments Urine Fine Granular Casts (test code = 26210-8) 1-5 >0 H [facility] Coarse Granular Ajzqy2802-79-07 17:46:00* Test Item Value Reference Range Interpretation Comments Urine Coarse Granular Casts (test code = 50268-0) 1-5 >0 H [facility] Fine Granular Kqtqq4660-21-63 17:46:00* Test Item Value Reference Range Interpretation Comments Urine Fine Granular Casts (test code = 59391-7) 1-5 >0 [facility] Coarse Granular Miwue8388-01-34 17:46:00* Test Item Value Reference Range Interpretation Comments Urine Coarse Granular Casts (test code = 72205-4) 1-5 >0 [facility] Fine Granular Pwjga2238-99-14 17:46:00* Test Item Value Reference Range Interpretation Comments Urine Fine Granular Casts (test code = 40636-3) 1-5 >0 H [facility] Coarse Granular Mshwl5720-95-93 17:46:00* Test Item Value Reference Range Interpretation Comments Urine Coarse Granular Casts (test code = 40694-6) 1-5 >0 H [facility] Fine Granular Uewah7018-47-75 17:46:00* Test Item Value Reference Range Interpretation Comments Urine Fine Granular Casts (test code = 79572-1) 1-5 >0 H [facility] Coarse Granular Gcovz2158-79-91 17:46:00* Test Item Value Reference Range Interpretation Comments Urine Coarse Granular Casts (test code = 05129-4) 1-5 >0 H [facility] Fine Granular Wwbta8556-17-43 17:46:00* Test Item Value Reference Range Interpretation Comments Urine Fine Granular Casts (test code = 46165-6) 1-5 >0 [facility] Coarse Granular Xfptr1771-95-99 17:46:00* Test Item Value Reference Range Interpretation Comments Urine Coarse Granular Casts (test code = 69452-7) 1-5 >0 H [facility] Lomxv8111-92-09 17:30:00* Test Item Value Reference Range Interpretation Comments Urine Color (test code = 5778-6) YELLOW YELLOW [facility] Fomixqe7141-69-30 17:30:00* Test Item Value Reference Range Interpretation Comments Urine Clarity (test code = 49738-2) CLOUDY CLEAR H [facility] Specific Bszaxyd1579-70-27 17:30:00 * Test Item Value Reference Range Interpretation Comments Urine Specific [place] (test code = 5811-5) 1.020 1.010-1.02 5 [facility] vM7781-42-57 17:30:00* Test Item Value Reference Range Interpretation Comments Urine pH (test code = 50405-0) 6 5-7 [facility] Leukocyte Uurlyhqm7494-77-98 17:30:00* Test Item Value Reference Range Interpretation Comments Urine Leukocyte Esterase (test code = 5799-2) 1+ NEGATIVE H [facility] Yvjtwna8089-89-10 17:30:00* Test Item Value Reference Range Interpretation Comments Urine Nitrite (test code = 50224-7) NEGATIVE NEGATIVE [facility] Dutyhey4181-31-27 17:30:00* Test Item Value Reference Range Interpretation Comments Urine Protein (test code = 5804-0) 3+ NEGATIVE H [facility] Glucose (UA)2018-06-20 17:30:00* Test Item Value Reference Range Interpretation Comments Urine Glucose (UA) (test code = 2349-9) 1+ NEGATIVE H [facility] Hxahvxt9803-84-89 17:30:00* Test Item Value Reference Range Interpretation Comments Urine Ketones (test code = 36090-5) NEGATIVE NEGATIVE [facility] Qaljvliflaoq0046-74-82 17:30:00* Test Item Value Reference Range Interpretation Comments Urine Urobilinogen (test code = 34439-2) 0.2 0.2-1 [facility] Ndfgmeprt7616-95-89 17:30:00* Test Item Value Reference Range Interpretation Comments Urine Bilirubin (test code = 1978-6) NEGATIVE NEGATIVE [facility] Lcxzg1706-82-06 17:30:00* Test Item Value Reference Range Interpretation Comments Urine Blood (test code = 45532-4) 4+ NEGATIVE H [facility] NortheastBedside Edwkmkt0126-91-13 16:10:00* Test Item Value Reference Range Interpretation Comments Bedside Glucose (test code = 07002-6) 72 70-120 Meter ID: [id number] Culture 2018-05-07 07:13:00* Test Item Value Reference Range Interpretation Comments Urine Culture (test code = 630-4) Organism: PSEUDOMONAS AERUGINOSA [facility] Dtaefgs4291-21-06 07:13:00* Test Item Value Reference Range Interpretation Comments Urine Culture (test code = 630-4) Organism: PSEUDOMONAS AERUGINOSA [facility] Gssnmbl0342-82-46 07:13:00* Test Item Value Reference Range Interpretation Comments Urine Culture (test code = 630-4) Organism: PSEUDOMONAS AERUGINOSA [facility] Cklzyad1478-20-98 07:13:00* Test Item Value Reference Range Interpretation Comments Urine Culture (test code = 630-4) Organism: PSEUDOMONAS AERUGINOSA [facility] Vorxmrg1190-36-67 07:13:00* Test Item Value Reference Range Interpretation Comments Urine Culture (test code = 630-4) Organism: PSEUDOMONAS AERUGINOSA [facility] Gczrajs2459-93-77 07:13:00* Test Item Value Reference Range Interpretation Comments Urine Culture (test code = 630-4) No Result [facility]ided [facility] 06:43:00* Test Item Value Reference Range Interpretation Comments Sodium Level (test code = 2951-2) 136 136-145 [facility]Potassium Hgcta9441-50-41 06:43:00* Test Item Value Reference Range Interpretation Comments Potassium Level (test code = 2823-3) 5.2 3.5-5.1 [facility] NortheastChloride Bwrqs4555-43-08 06:43:00* Test Item Value Reference Range Interpretation Comments Chloride Level (test code = 2075-0) 111 98-107 [facility] NortheastCarbon Dioxide Qaayw3615-48-52 06:43:00* Test Item Value Reference Range Interpretation Comments Carbon Dioxide Level (test code = 2028-9) 21 22-29 L [facility] NortheastAnion Ekg1090-50-22 06:43:00* Test Item Value Reference Range Interpretation Comments Anion Gap (test code = 15400-7) 9.2 8-16 [facility]Blood Urea Gxgqqsgt7597-43-52 06:43:00* Test Item Value Reference Range Interpretation Comments Blood Urea Nitrogen (test code = 3094-0) 26 7-26 [facility] NortheastCreatinine2019-03-14 06:43:00* Test Item Value Reference Range Interpretation Comments Creatinine (test code = 2160-0) 2.22 0.72-1.25 [facility] NortheastBUN/Creatinine Qrctz6625-07-13 06:43:00* Test Item Value Reference Range Interpretation Comments BUN/Creatinine Ratio (test code = 3097-3) 12 6-25 [facility] NortheastEstimat Glomerular Filtration Rate 2018-05-06 06:43:00* Test Item Value Reference Range Interpretation Comments Estimat Glomerular Filtration Rate (test code = 687535929) 33 >60 L Ranges were taken from the National Kidney Disease Education Program and the [facility] [employer] [employer] literature.Reference ranges:60 or greater: Sxtztm07-87 ( for 3 consecutive months): Chronic kidney disease 15 or less: Kidney failureMethodist Hospital NortheastGlucose Drloe6186-76-59 06:43:00* Test Item Value Reference Range Interpretation Comments Glucose Level (test code = JYK5600) 144 74-118 [facility] NortheastCalcium Cbcmv4392-20-04 06:43:00* Test Item Value Reference Range Interpretation Comments Calcium Level (test code = 93858-1) 6.5 8.4-10.2 LL Results repeated and called to RANULFO ALATORRE RN at 0641 on 05/06/18 by Morenita Guy. Read back and verified.[facility] NortheastWhite Blood Fvtid6804-21-25 06:20:00* Test Item Value Reference Range Interpretation Comments White Blood Count (test code = 6690-2) 3.55 4.8-10.8 L [facility] NortheastRed Blood Exqxw2635-43-70 06:20:00* Test Item Value Reference Range Interpretation Comments Red Blood Count (test code = 789-8) 3.25 4.3-5.7 L [facility] NortheastHemoglobin2019-03-14 06:20:00* Test Item Value Reference Range Interpretation Comments Hemoglobin (test code = 33542-6) 8.6 14.0-18.0 L [facility] NortheastHematocrit2019-03-14 06:20:00* Test Item Value Reference Range Interpretation Comments Hematocrit (test code = 4544-3) 27.2 38.2-49.6 L [facility] NortheastMean Corpuscular Qlvpgd9530-35-38 06:20:00* Test Item Value Reference Range Interpretation Comments Mean Corpuscular Volume (test code = 787-2) 83.7 81-99 [facility] NortheastMean Corpuscular Qlsnhcniht6355-78-75 06:20:00* Test Item Value Reference Range Interpretation Comments Mean Corpuscular Hemoglobin (test code = 785-6) 26.5 28-32 L [facility] NortheastMean Corpuscular Hemoglobin Concent 2018-05-06 06:20:00* Test Item Value Reference Range Interpretation Comments Mean Corpuscular Hemoglobin Concent (test code = 786-4) 31.6 31-35 [facility] NortheastRed Cell Distribution Ctppj5025-43-52 06:20:00* Test Item Value Reference Range Interpretation Comments Red Cell Distribution Width (test code = 75124-5) 14.6 11.7 -14.4 H [facility] NortheastPlatelet Cexcf6178-09-63 06:20:00* Test Item Value Reference Range Interpretation Comments Platelet Count (test code = 777-3) 113 140-360 L [facility] NortheastNeutrophils (%) (Auto)2018-05-06 06:20:00 * Test Item Value Reference Range Interpretation Comments Neutrophils (%) (Auto) (test code = 67477-3) 59.6 38.7-80.0 [facility] NortheastLymphocytes (%) (Auto)2018-05-06 06:20:00 * Test Item Value Reference Range Interpretation Comments Lymphocytes (%) (Auto) (test code = 736-9) 24.8 18.0-39.1 [facility] NortheastMonocytes (%) (Auto)2018-05-06 06:20:00* Test Item Value Reference Range Interpretation Comments Monocytes (%) (Auto) (test code = 5905-5) 8.5 4.4-11.3 [facility]Eosinophils (%) (Auto)2018-05-06 06:20:00 * Test Item Value Reference Range Interpretation Comments Eosinophils (%) (Auto) (test code = 713-8) 5.1 0.0-6.0 [facility]Basophils (%) (Auto)2018-05-06 06:20:00* Test Item Value Reference Range Interpretation Comments Basophils (%) (Auto) (test code = 706-2) 0.6 0.0-1.0 [facility] NortheastIM GRANULOCYTES %2018-05-06 06:20:00* Test Item Value Reference Range Interpretation Comments IM GRANULOCYTES % (test code = IM GRANULOCYTES %) 1.4 0.0- 1.0 H [facility] NortheastNeutrophils # (Auto)2018-05-06 06:20:00* Test Item Value Reference Range Interpretation Comments Neutrophils # (Auto) (test code = 751-8) 2.1 2.1-6.9 [facility] NortheastLymphocytes # (Auto)2018-05-06 06:20:00* Test Item Value Reference Range Interpretation Comments Lymphocytes # (Auto) (test code = 90726-9) 0.9 1.0-3.2 L [facility] NortheastMonocytes # (Auto)2018-05-06 06:20:00* Test Item Value Reference Range Interpretation Comments Monocytes # (Auto) (test code = 742-7) 0.3 0.2-0.8 [facility] NortheastEosinophils # (Auto)2018-05-06 06:20:00* Test Item Value Reference Range Interpretation Comments Eosinophils # (Auto) (test code = 711-2) 0.2 0.0-0.4 [facility] NortheastBasophils # (Auto)2018-05-06 06:20:00* Test Item Value Reference Range Interpretation Comments Basophils # (Auto) (test code = 704-7) 0.0 0.0-0.1 [facility] NortheastAbsolute Immature Granulocyte (auto 2018-05-06 06:20:00* Test Item Value Reference Range Interpretation Comments Absolute Immature Granulocyte (auto (shin t code = Absolute Immature Granulocyte (auto) 0.05 0-0.1 [facility] Hxycctfxr7872-32-07 06:21:00* Test Item Value Reference Range Interpretation Comments Total Bilirubin (test code = 1975-2) 0.2 0.2-1.2 [facility] NortheastAspartate Amino Transf (AST/SGOT) 2018-05-05 06:21:00* Test Item Value Reference Range Interpretation Comments Aspartate Amino Transf (AST/SGOT) (test code = Aspartate Amino Transf (AST/SGOT)) 31 5-34 [facility] NortheastAlanine Aminotransferase (ALT/SGPT) 2018-05-05 06:21:00* Test Item Value Reference Range Interpretation Comments Alanine Aminotransferase (ALT/SGPT) (test code = 1742-6) 44 0-55 [facility] NortheastTotal Dobrcyk1085-24-60 06:21:00* Test Item Value Reference Range Interpretation Comments Total Protein (test code = 2885-2) 6.6 6.5-8.1 [facility] NortheastAlbumin2019-03-13 06:21:00* Test Item Value Reference Range Interpretation Comments Albumin (test code = 1751-7) 2.4 3.5-5.0 L [facility] NortheastGlobulin2019-03-13 06:21:00* Test Item Value Reference Range Interpretation Comments Globulin (test code = 86021-7) 4.2 2.3-3.5 H [facility] NortheastAlbumin/Globulin Vrmoe4992-56-73 06:21:00 * Test Item Value Reference Range Interpretation Comments Albumin/Globulin Ratio (test code = 1759-0) 0.6 0.8-2.0 L [facility] Sojjwrhqxpy0434-97-88 06:21:00* Test Item Value Reference Range Interpretation Comments Alkaline Phosphatase (test code = 6768-6) 272 40-150 [facility] Rzxon0561-28-61 01:32:00* Test Item Value Reference Range Interpretation Comments Urine Color (test code = 5778-6) YELLOW YELLOW [facility] Jcsuxyh0580-51-04 01:32:00* Test Item Value Reference Range Interpretation Comments Urine Clarity (test code = 49013-4) CLOUDY CLEAR [facility] Specific Ontemwa6152-26-57 01:32:00 * Test Item Value Reference Range Interpretation Comments Urine Specific [place] (test code = 5811-5) 1.025 1.010-1.02 5 [facility] bV5897-86-34 01:32:00* Test Item Value Reference Range Interpretation Comments Urine pH (test code = 44106-7) 6 5-7 [facility] Leukocyte Tzkpxeuo0826-48-23 01:32:00* Test Item Value Reference Range Interpretation Comments Urine Leukocyte Esterase (test code = 5799-2) 2+ NEGATIVE H [facility] Zrpdqwx4151-47-70 01:32:00* Test Item Value Reference Range Interpretation Comments Urine Nitrite (test code = 45153-3) POSITIVE NEGATIVE H [facility] Kfxxwfj6492-27-60 01:32:00* Test Item Value Reference Range Interpretation Comments Urine Protein (test code = 5804-0) 3+ NEGATIVE H [facility] Glucose (UA)2018-05-04 01:32:00* Test Item Value Reference Range Interpretation Comments Urine Glucose (UA) (test code = 2349-9) 1+ NEGATIVE H [facility] Ipooqqj2948-32-73 01:32:00* Test Item Value Reference Range Interpretation Comments Urine Ketones (test code = 33059-4) NEGATIVE NEGATIVE [facility] Dezdqlvwtfli6063-59-74 01:32:00* Test Item Value Reference Range Interpretation Comments Urine Urobilinogen (test code = 69474-3) 0.2 0.2-1 [facility] Oxkunlrls4628-44-68 01:32:00* Test Item Value Reference Range Interpretation Comments Urine Bilirubin (test code = 1978-6) NEGATIVE NEGATIVE [facility] Corqd8645-42-21 01:32:00* Test Item Value Reference Range Interpretation Comments Urine Blood (test code = 17227-4) 4+ NEGATIVE H [facility] TDC9404-99-52 01:32:00* Test Item Value Reference Range Interpretation Comments Urine WBC (test code = 5821-4) >50 0-5 [facility] BTG3388-07-34 01:32:00* Test Item Value Reference Range Interpretation Comments Urine RBC (test code = 19193-9) 21-50 0-5 H [facility] Uyvvjvkp0687-65-86 01:32:00* Test Item Value Reference Range Interpretation Comments Urine Bacteria (test code = 04418-1) MANY NONE [facility] Epithelial Mkcon5776-40-50 01:32:00 * Test Item Value Reference Range Interpretation Comments Urine Epithelial Cells (test code = 36060-7) RARE NONE [facility] Virus Types A,B Antigen 2018-05-04 01:16:00* Test Item Value Reference Range Interpretation Comments Influenza Virus Types A,B Antigen (test code = 51339-3) NEGATIVE [facility]GATIVE [facility] Streptococcus Cjidym2768-70-27 01:16:00* Test Item Value Reference Range Interpretation Comments Group A Streptococcus Screen (test code = 15973-8) NEGATIVE NEG ATIVE [facility] A,B Antigen 2018-05-04 01:16:00* Test Item Value Reference Range Interpretation Comments Influenza Virus Types A,B Antigen (test code = 57764-3) NEGATIVE NEGATIVE [facility] A Streptococcus Dkavvd4682-95-58 01:16:00* Test Item Value Reference Range Interpretation Comments Group A Streptococcus Screen (test code = 25583-3) NEGATIVE [facility]G [facility]IVE [facility] Virus [facility] A,B Antigen 2018-05-04 01:16:00* Test Item Value Reference Range Interpretation Comments Influenza Virus Types A,B Antigen (test code = 11266-0) NEGATIVE [facility]GATIVE [facility] A Streptococcus Msfxwi5920-68-20 01:16:00* Test Item Value Reference Range Interpretation Comments Group A Streptococcus Screen (test code = 51458-0) NEGATIVE [facility]G ATIVE [facility] Virus Types A,B Antigen 2018-05-04 01:16:00* Test Item Value Reference Range Interpretation Comments Influenza Virus Types A,B Antigen (test code = 18126-9) NEGATIVE [facility]GATIVE [facility] A Streptococcus Tflpja2739-57-56 01:16:00* Test Item Value Reference Range Interpretation Comments Group A Streptococcus Screen (test code = 59753-3) NEGATIVE [facility]G ATIVE [facility] Virus Types A,B Antigen 2018-05-04 01:16:00* Test Item Value Reference Range Interpretation Comments Influenza Virus Types A,B Antigen (test code = 96861-1) NEGATIVE [facility]GATIVE [facility] A Streptococcus Fpgwmt1165-19-88 01:16:00* Test Item Value Reference Range Interpretation Comments Group A Streptococcus Screen (test code = 31978-2) NEGATIVE [facility]G ATIVE [facility] Virus Types A,B Antigen 2018-05-04 01:16:00* Test Item Value Reference Range Interpretation Comments Influenza Virus Types A,B Antigen (test code = 81482-6) NEGATIVE [facility]GATIVE [facility] A Streptococcus Vsbwtp0757-29-41 01:16:00* Test Item Value Reference Range Interpretation Comments Group A Streptococcus Screen (test code = 83049-1) NEGATIVE [facility] ATIVE [facility]PELVIS IT4506-48-08 18:18:00 [facility] [address] [address] Patient Name: MANJIT LUO MR #: [id number] : 1980 Age/Sex: 37/M Req #: [id number] Adm Physician: 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: 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 Report #: [id number] Location: ER Room/Bed: Procedure: 0311-[address]/CT [...] 6:38 PM Dictated By: ISMA FATIMA MD [facility] Signed By: ISMA FATIMA MD on 05/03/181837 Transcribed By: TIFFANY on 05/03/181837 COPY TO: NORY LEYVA NP CHEST SINGLE (NOT PORTABLE)2018-05-03 16:44:00 [address] [address] Patient Name: MANJIT LUO MR #: [id number] : 1980 Age/Sex: 37/M Req #: [id number] Adm Physician: Ordered by: NORY LEYVA NP Report #: [id number] Location: ER Room/Bed: Procedure: 0311-007 2 DX/CHEST [...] 05/03/181644 COPY TO: NORY LEYVA NP Amylase Osfby6135-92-02 15:32:00* Test Item Value Reference Range Interpretation Comments Amylase Level (test code = 1798-8) 62 [facility] 15:32:00* Test Item Value Reference Range Interpretation Comments Lipase (test code = 3040-3) [facility] Sekpb6389-23-08 15:32:00* Test Item Value Reference Range Interpretation Comments Amylase Level (test code = 1798-8) 62 [facility]Lip[facility]2019-03-11 15:32:00* Test Item Value Reference Range Interpretation Comments Lipase (test code = 3040-3) [facility] Lavht6712-79-69 15:32:00* Test Item Value Reference Range Interpretation Comments Amylase Level (test code = 1798-8) 62 -125 [facility]Lip[facility]2019-03-11 15:32:00* Test Item Value Reference Range Interpretation Comments Lipase (test code = 3040-3) [facility] Ojsjj6937-84-94 15:32:00* Test Item Value Reference Range Interpretation Comments Amylase Level (test code = 1798-8) 62 125 [facility]Lip[facility]2019-03-11 15:32:00* Test Item Value Reference Range Interpretation Comments Lipase (test code = 3040-3) 14 [facility]Am[facility] Prunr6675-34-08 15:32:00* Test Item Value Reference Range Interpretation Comments Amylase Level (test code = 1798-8) 62 -125 [facility]Lip[facility]2019-03-11 15:32:00* Test Item Value Reference Range Interpretation Comments Lipase (test code = 3040-3) 14 [facility]Am[facility] Gtzxt6937-80-33 15:32:00* Test Item Value Reference Range Interpretation Comments Amylase Level (test code = 1798-8) 62 -125 [facility]Lip[facility]2019-03-11 15:32:00* Test Item Value Reference Range Interpretation Comments Lipase (test code = 3040-3) [facility]Blood Zjroids5070-61-41 01:39:00* Test Item Value Reference Range Interpretation Comments Blood Culture (test code = 93491343) NO GROWTH AFTER 5 DAYS, FINAL REPORT [facility] NortheastBedside Iurtvwh3137-38-18 08:10:00* Test Item Value Reference Range Interpretation Comments Bedside Glucose (test code = 67698-6) 190 70-120 H Meter ID: [id number] Hospital NortheastUrine Culture 2017-09-01 06:38:00* Test Item Value Reference Range Interpretation Comments Urine Culture (test code = 630-4) Organism: PSEUDOMONAS AERUGINOSA [facility] Bxetgxf5816-48-66 06:38:00* Test Item Value Reference Range Interpretation Comments Urine Culture (test code = 630-4) Organism: PSEUDOMONAS AERUGINOSA [facility] Jrcjywt1708-23-06 06:38:00* Test Item Value Reference Range Interpretation Comments Urine Culture (test code = 630-4) Organism: PSEUDOMONAS AERUGINOSA [facility] Cqzebsy1058-06-63 01:39:00* Test Item Value Reference Range Interpretation Comments Blood Culture (test code = 88133939) NO GROWTH AFTER [address] [facility] N[facility]f2455[facility]-09 05:13:00* Test Item Value Reference Range Interpretation Comments Sodium Level (test code = 2951-2) 136 136-145 [facility]Pot[facility] Uwqwv6691-25-03 05:13:00* Test Item Value Reference Range Interpretation Comments Potassium Level (test code = 2823-3) 4.7 3.5-5.1 [facility]Chloride Epjic8079-15-27 05:13:00* Test Item Value Reference Range Interpretation Comments Chloride Level (test code = 2075-0) 109 98-107 H [facility] NortheastCar[facility] Dioxide Ecmdf5036-24-34 05:13:00* Test Item Value Reference Range Interpretation Comments Carbon Dioxide Level (test code = 2028-9) 20 22-29 L [facility] NortheastAnion Txn0286-01-99 05:13:00* Test Item Value Reference Range Interpretation Comments Anion Gap (test code = 62752-4) 11.7 8-16 [facility]Blood Urea Jcczckyk4294-92-38 05:13:00* Test Item Value Reference Range Interpretation Comments Blood Urea Nitrogen (test code = 3094-0) 20 7-26 [facility] NortheastCreatinine2018-07-09 05:13:00* Test Item Value Reference Range Interpretation Comments Creatinine (test code = 2160-0) 1.79 0.72-1.25 H [facility]/Creatinine Iozyl8157-21-66 05:13:00* Test Item Value Reference Range Interpretation Comments BUN/Creatinine Ratio (test code = 3097-3) 11 6-25 [facility] NortheastEstimat Glomerular Filtration Rate 2017-08-31 05:13:00* Test Item Value Reference Range Interpretation Comments Estimat Glomerular Filtration Rate (test code = 92984-3) 43 >60 L Ranges were taken from the National Kidney Disease Education Program and the [facility] [employer] literature.Reference ranges:60 or greater: Qydxpl30-14 ( for 3 consecutive months): Chronic kidney disease 15 or less: Kidney failureMethodist Hospital NortheastGlucose Lddgv0553-98-07 05:13:00* Test Item Value Reference Range Interpretation Comments Glucose Level (test code = MVP6911) 165 74-118 H [facility] NortheastCalcium Qvcve3803-07-28 05:13:00* Test Item Value Reference Range Interpretation Comments Calcium Level (test code = 54819-3) 8.2 8.4-10.2 L [facility] NortheastTotal Ezexpbcej7695-14-75 05:11:00* Test Item Value Reference Range Interpretation Comments Total Bilirubin (test code = 1975-2) 0.5 0.2-1.2 [facility] NortheastAspartate Amino Transf (AST/SGOT) 2017-08-30 05:11:00* Test Item Value Reference Range Interpretation Comments Aspartate Amino Transf (AST/SGOT) (test code = Aspartate Amino Transf (AST/SGOT)) 14 5-34 [facility] NortheastAlanine Aminotransferase (ALT/SGPT) 2017-08-30 05:11:00* Test Item Value Reference Range Interpretation Comments Alanine Aminotransferase (ALT/SGPT) (test code = 1742-6) 40 0-55 [facility] NortheastTotal Sxrbklq5311-87-75 05:11:00* Test Item Value Reference Range Interpretation Comments Total Protein (test code = 2885-2) 7.4 6.5-8.1 [facility] NortheastAlbumin2018-07-08 05:11:00* Test Item Value Reference Range Interpretation Comments Albumin (test code = 1751-7) 2.8 3.5-5.0 L [facility] NortheastGlobulin2018-07-08 05:11:00* Test Item Value Reference Range Interpretation Comments Globulin (test code = 69141-9) 4.6 2.3-3.5 H [facility] NortheastAlbumin/Globulin Vpfsa0153-03-24 05:11:00 * Test Item Value Reference Range Interpretation Comments Albumin/Globulin Ratio (test code = 1759-0) 0.6 0.8-2.0 L [facility] NortheastAlkaline Zzkxrbggiun7490-57-97 05:11:00* Test Item Value Reference Range Interpretation Comments Alkaline Phosphatase (test code = 6768-6) 234 40-150 H [facility] NortheastWhite Blood Odghx6357-00-44 04:54:00* Test Item Value Reference Range Interpretation Comments White Blood Count (test code = 6690-2) 5.33 4.8-10.8 [facility] NortheastRed Blood Hlgbj3327-04-82 04:54:00* Test Item Value Reference Range Interpretation Comments Red Blood Count (test code = 789-8) 3.61 4.3-5.7 L [facility] NortheastHemoglobin2018-07-08 04:54:00* Test Item Value Reference Range Interpretation Comments Hemoglobin (test code = 77788-4) 9.4 14.0-18.0 L [facility] NortheastHematocrit2018-07-08 04:54:00* Test Item Value Reference Range Interpretation Comments Hematocrit (test code = 4544-3) 29.6 38.2-49.6 L [facility] NortheastMean Corpuscular Sogyeo0789-12-29 04:54:00* Test Item Value Reference Range Interpretation Comments Mean Corpuscular Volume (test code = 787-2) 82.0 81-99 [facility] NortheastMean Corpuscular Lsroarnrsk9151-04-20 04:54:00* Test Item Value Reference Range Interpretation Comments Mean Corpuscular Hemoglobin (test code = 785-6) 26.0 28-32 L [facility] NortheastMean Corpuscular Hemoglobin Concent 2017-08-30 04:54:00* Test Item Value Reference Range Interpretation Comments Mean Corpuscular Hemoglobin Concent (test code = 786-4) 31.8 31-35 [facility] NortheastRed Cell Distribution Cwmve6232-21-83 04:54:00* Test Item Value Reference Range Interpretation Comments Red Cell Distribution Width (test code = 64263-8) 16.5 11.7 -14.4 H [facility] NortheastPlatelet Drtrj2750-05-61 04:54:00* Test Item Value Reference Range Interpretation Comments Platelet Count (test code = 777-3) 115 140-360 L [facility] NortheastNeutrophils (%) (Auto)2017-08-30 04:54:00 * Test Item Value Reference Range Interpretation Comments Neutrophils (%) (Auto) (test code = 67096-9) 73.6 38.7-80.0 [facility] NortheastLymphocytes (%) (Auto)2017-08-30 04:54:00 * Test Item Value Reference Range Interpretation Comments Lymphocytes (%) (Auto) (test code = 736-9) 13.9 18.0-39.1 L [facility] NortheastMonocytes (%) (Auto)2017-08-30 04:54:00* Test Item Value Reference Range Interpretation Comments Monocytes (%) (Auto) (test code = 5905-5) 9.8 4.4-11.3 [facility] NortheastEosinophils (%) (Auto)2017-08-30 04:54:00 * Test Item Value Reference Range Interpretation Comments Eosinophils (%) (Auto) (test code = 713-8) 2.1 0.0-6.0 [facility] NortheastBasophils (%) (Auto)2017-08-30 04:54:00* Test Item Value Reference Range Interpretation Comments Basophils (%) (Auto) (test code = 706-2) 0.2 0.0-1.0 [facility] NortheastIM GRANULOCYTES %2017-08-30 04:54:00* Test Item Value Reference Range Interpretation Comments IM GRANULOCYTES % (test code = IM GRANULOCYTES %) 0.4 0.0- 1.0 [facility] NortheastNeutrophils # (Auto)2017-08-30 04:54:00* Test Item Value Reference Range Interpretation Comments Neutrophils # (Auto) (test code = 751-8) 3.9 2.1-6.9 [facility] NortheastLymphocytes # (Auto)2017-08-30 04:54:00* Test Item Value Reference Range Interpretation Comments Lymphocytes # (Auto) (test code = 12320-1) 0.7 1.0-3.2 L [facility] NortheastMonocytes # (Auto)2017-08-30 04:54:00* Test Item Value Reference Range Interpretation Comments Monocytes # (Auto) (test code = 742-7) 0.5 0.2-0.8 [facility] NortheastEosinophils # (Auto)2017-08-30 04:54:00* Test Item Value Reference Range Interpretation Comments Eosinophils # (Auto) (test code = 711-2) 0.1 0.0-0.4 [facility]Basophils # (Auto)2017-08-30 04:54:00* Test Item Value Reference Range Interpretation Comments Basophils # (Auto) (test code = 704-7) 0.0 0.0-0.1 [facility] NortheastAbsolute Immature Granulocyte (auto 2017-08-30 04:54:00* Test Item Value Reference Range Interpretation Comments Absolute Immature Granulocyte (auto (shin t code = Absolute Immature Granulocyte (auto) 0.02 0-0.1 [facility] NortheastLactic Acid Reuov4662-53-21 02:07:00* Test Item Value Reference Range Interpretation Comments Lactic Acid Level (test code = Lactic Acid Level) 6.9 4.5- 19.8 [facility] NortheastL[facility] Acid Foetx3758-90-31 02:07:00* Test Item Value Reference Range Interpretation Comments Lactic Acid Level (test code = Lactic Acid Level) 6.9 4.5- 19.8 [facility] NortheastLactic Acid Awbsn3706-96-30 02:07:00* Test Item Value Reference Range Interpretation Comments Lactic Acid Level (test code = Lactic Acid Level) 6.9 4.5- 19.8 [facility] NortheastUrine Eklgc4196-00-09 01:57:00* Test Item Value Reference Range Interpretation Comments Urine Color (test code = 5778-6) RED YELLOW H [facility] NortheastU[facility] Zbtcggr5197-19-00 01:57:00* Test Item Value Reference Range Interpretation Comments Urine Clarity (test code = 40238-0) CLOUDY CLEAR H [facility] NortheastU[facility] Specific Ewdnnrc3571-53-81 01:57:00 * Test Item Value Reference Range Interpretation Comments Urine Specific [place] (test code = 5811-5) 1.020 1.010-1.02 5 [facility] iV8441-61-47 01:57:00* Test Item Value Reference Range Interpretation Comments Urine pH (test code = 27428-7) 6 5-7 [facility] Leukocyte Dfkawkpx0718-48-57 01:57:00* Test Item Value Reference Range Interpretation Comments Urine Leukocyte Esterase (test code = 5799-2) 2+ NEGATIVE H [facility] Foaadpu2097-56-87 01:57:00* Test Item Value Reference Range Interpretation Comments Urine Nitrite (test code = 12163-8) NEGATIVE NEGATIVE [facility] Khaapyn5328-94-33 01:57:00* Test Item Value Reference Range Interpretation Comments Urine Protein (test code = 5804-0) 3+ NEGATIVE H [facility] Glucose (UA)2017-08-29 01:57:00* Test Item Value Reference Range Interpretation Comments Urine Glucose (UA) (test code = 2349-9) NEGATIVE NEGATIVE [facility] Ccmiosn8563-40-22 01:57:00* Test Item Value Reference Range Interpretation Comments Urine Ketones (test code = 50525-8) NEGATIVE NEGATIVE [facility] Bghwritiwkmc8301-28-32 01:57:00* Test Item Value Reference Range Interpretation Comments Urine Urobilinogen (test code = 83845-3) 0.2 0.2-1 [facility] Ucauzsnvf4485-57-84 01:57:00* Test Item Value Reference Range Interpretation Comments Urine Bilirubin (test code = 1978-6) 1+ NEGATIVE H Confirmatory test currently unavailable. False positive results may occur.[facility] Mroaa5422-96-13 01:57:00* Test Item Value Reference Range Interpretation Comments Urine Blood (test code = 38929-3) 3+ NEGATIVE H [facility] AHV6395-43-77 01:57:00* Test Item Value Reference Range Interpretation Comments Urine WBC (test code = 5821-4) 50- 0-5 H [facility] VAY8905-29-63 01:57:00* Test Item Value Reference Range Interpretation Comments Urine RBC (test code = 85288-8) 50- 0-5 H [facility] Evfnlztc1162-09-85 01:57:00* Test Item Value Reference Range Interpretation Comments Urine Bacteria (test code = 05871-2) FEW NONE [facility] Epithelial Qtbqy2509-08-57 01:57:00 * Test Item Value Reference Range Interpretation Comments Urine Epithelial Cells (test code = 54300-0) RARE NONE [facility]CHEST SINGLE (PORTABLE)2017-08-29 01:52:00 [facility] [address] [address] Patient Name: MANJIT LUO MR #: [id number] : 1980 Age/Sex: 37/M Req #: [id number] Adm Physician: Ordered by: MARIELLE MARSH MD Report #: [id number] Location: ER Room/Bed: Procedure: [id number] DX/CHEST SINGLE (ALONDRA BLE) Exam Date: 08/29/17 [...] 1:53 AM Dictated By: CHEIKH BELTRAN MD 0153 Transcribed By: TIFFANY on 08/29/17 0153 COPY TO: MARIELLE MARSH MD Magnesium Tmuee8859-93-09 00:45:00* Test Item Value Reference Range Interpretation Comments Magnesium Level (test code = 97574-9) 1.3 1.3-2.1 [facility] [address] [address] Patient Name: MANJIT LUO MR #: [id number] : 1980 Age/Sex: 36/M Req #: [id number] Adm Physician: Ordered by: MARGAUX HILLS MD Report #: [id number] Location: ER Room/Bed: Procedure: [id number] CT/CT ABDOMEN/PELVIS WO Exam Date: 01/25/17 Exam [...]
--- NOTE | 2019-12-11 23:52 | Emergency Department Note ---
History of Present Illnes History of Present Illness Chief Complaint: General Medicine Complaints History of Present Illness This is a 39 year old male comes to the ed for feeling weakness and lower back pain since thursday, states he also feels nausea, progressively getting worse. sepsis screen negative, PT HAS A CHRONIC INDWELLING SUPRAPUBIC SONG CATHETER AND GETS RECURRENT UTI'S WHICH REQUIRE IV ANTIBIOTICS FOR TREATMENT. . Historian: Patient Arrival Mode: Car Onset (how long ago): day(s) (2) Location: LOWER BACK Quality: PAIN, GENERALIZED WEAKNESS, LOW GRADE FEVER Radiation: Reports non-radiation Severity: moderate Onset quality: gradual Duration (how long): day(s) (2) Timing of current episode: constant Progression: worsening Chronicity: recurrent Context: Denies recent illness, Denies recent surgery, Denies trauma/injury Relieving factors: none Exacerbating factors: none Associated symptoms: Reports nausea/vomiting Treatments prior to arrival: none Past Medical/Family History Physician Review I have reviewed the patient's past medical and family history. Any updates have been documented here. Past Medical History Recent Fever: No Clinical Suspicion of Infectio: Yes New/Unexplained Change in Ment: No Past Medical History: Hypertension, Diabetes, ESRD, Anemia Other Medical History: FOOT DROP osteomyelitis Past Surgical History: Cholecysctectomy, Knee Replacement Other Surgery: RT LOWER LEG SURGERY AT AGE 4 Stent to Prostate RIGHT LEG SURGERY S/P WORK INJURY SUPRA PUBIC CATH CIRCUMCISION PERITONEAL DIALYSIS ACCESS RT NEPHRECTOMY Social History Smoking Cessation: Never Smoker Alcohol Use: None Any Illegal Drug Use: No Family History Family history of heart diseas: No Other Last Tetanus: UTD Review of Systems Review of Systems Constitutional: Reports malaise EENTM: Reports no symptoms Cardiovascular: Reports no symptoms Respiratory: Reports no symptoms Gastrointestinal: Reports no symptoms Genitourinary: Reports as per HPI Musculoskeletal: Reports back pain Integumentary: Reports no symptoms Neurological: Reports no symptoms Psychological: Reports no symptoms Endocrine: Reports no symptoms Hematological/Lymphatic: Reports no symptoms Review of other systems: All other systems negative Physical Exam Related Data Allergies: Coded Allergies: Iodinated Contrast Media (Verified Allergy, Unknown, 05/03/18) Uncoded Allergies: PO CONTRAST (Allergy, Mild, 07/06/07) Triage Vital Signs Vital Signs Date Time Temp Pulse Resp B/P (MAP) Pulse Ox O2 Delivery O2 Flow Rate FiO2 12/11/19 23:41 99.1 86 18 178/101 99 Vital signs reviewed: Yes Physical Exam CONSTITUTIONAL Constitutional: Present well-developed, Present well-nourished; Absent distressed HENT HENT: Present normocephalic, Present atraumatic, Present oropharynx clear/moist, Present nose normal HENT L/R: Present left ext ear normal, Present right ext ear normal EYES Eyes: Reports PERRL, Reports conjunctivae normal NECK Neck: Present ROM normal PULMONARY Pulmonary: Present effort normal, Present breath sounds normal CARDIOVASCULAR Cardiovascular: Present regular rhythm, Present heart sounds normal, Present capillary refill normal, Present normal rate GASTROINTESTINAL Abdominal: Present soft, Present nontender, Present bowel sounds normal GENITOURINARY Genitourinary: Present exam deferred SKIN Skin: Present warm, Present dry MUSCULOSKELETAL Musculoskeletal: Present ROM normal NEUROLOGICAL Neurological: Present alert, Present oriented x 3, Present no gross motor or sensory deficits PSYCHOLOGICAL Psychological: Present mood/affect normal, Present judgement normal Results Laboratory Laboratory Laboratory Tests Test 12/11/19 23:53 12/11/19 23:50 White Blood Count 4.63 x10e3/uL (4.8-10.8) Red Blood Count 4.55 x10e6/uL (4.3-5.7) Hemoglobin 11.0 g/dL (14.0-18.0) Hematocrit 36.9 % (38.2-49.6) Mean Corpuscular Volume 81.1 fL (81-99) Mean Corpuscular Hemoglobin 24.2 pg (28-32) Mean Corpuscular Hemoglobin Concent 29.8 g/dL (31-35) Red Cell Distribution Width 16.1 % (11.7-14.4) Platelet Count 135 x10e3/uL (140-360) Neutrophils (%) (Auto) 66.2 % (38.7-80.0) Lymphocytes (%) (Auto) 24.8 % (18.0-39.1) Monocytes (%) (Auto) 5.2 % (4.4-11.3) Eosinophils (%) (Auto) 2.8 % (0.0-6.0) Basophils (%) (Auto) 0.6 % (0.0-1.0) Neutrophils # (Auto) 3.1 (2.1-6.9) Lymphocytes # (Auto) 1.2 (1.0-3.2) Monocytes # (Auto) 0.2 (0.2-0.8) Eosinophils # (Auto) 0.1 (0.0-0.4) Basophils # (Auto) 0.0 (0.0-0.1) Absolute Immature Granulocyte (auto 0.02 x10e3/uL (0-0.1) Sodium Level 136 mmol/L (136-145) Potassium Level 5.0 mmol/L (3.5-5.1) Chloride Level 106 mmol/L (98-107) Carbon Dioxide Level 18 mmol/L (22-29) Anion Gap 17.0 mmol/L (8-16) Blood Urea Nitrogen 47 mg/dL (7-26) Creatinine 7.55 mg/dL (0.72-1.25) Estimat Glomerular Filtration Rate 8 ML/MIN (60-) BUN/Creatinine Ratio 6 (6-25) Glucose Level 264 mg/dL (74-118) Calcium Level 5.6 mg/dL (8.4-10.2) Total Bilirubin 0.2 mg/dL (0.2-1.2) Aspartate Amino Transf (AST/SGOT) 6 IU/L (5-34) Alanine Aminotransferase (ALT/SGPT) < 6 IU/L (0-55) Alkaline Phosphatase 163 IU/L (40-150) Total Protein 7.6 g/dL (6.5-8.1) Albumin 2.2 g/dL (3.5-5.0) Globulin 5.4 g/dL (2.3-3.5) Albumin/Globulin Ratio 0.4 (0.8-2.0) Urine Color Yellow (YELLOW) Urine Clarity Cloudy (CLEAR) Urine pH 8.5 (5 - 7) Urine Specific [place] 1.020 (1.010-1.025) Urine Protein >=300 (NEGATIVE) Urine Glucose (UA) 2+ (NEGATIVE) Urine Ketones Negative (NEGATIVE) Urine Blood 4+ (NEGATIVE) Urine Nitrite Negative (NEGATIVE) Urine Bilirubin Negative (NEGATIVE) Urine Urobilinogen 0.2 mg/dL (0.2 - 1) Urine Leukocyte Esterase 1+ (NEGATIVE) Urine RBC >50 /HPF (0-5) Urine WBC >50 /HPF (0-5) Urine Epithelial Cells Few /LPF (NONE) Urine Bacteria Many /HPF (NONE) Lab results reviewed: Yes Imaging Imaging results reviewed: Yes Assessment & Plan Medical Decision Making MDM PT WITH GENERALIZED WEAKNESS, HAS INDWELLING SUPRAPUBIC CATHETER WITH RECURRENT COMPLICATED UTI'S CBC, CMP, UA, BLOOD CULTURE, URINE CULTURE ORDERED TO EVAL FOR UTI, LEUKOCYTOSIS, ELECTROLYTE ABNORMALITY CALCIUM CHLORIDE IV ORDERED SECONDARY TO PT IS HYPOCALCEMIC AT THIS TIME PT WITH UTI MEROPENEM 500 MG IV ORDERED I SPOKE WITH DR LLOYD, LEFT A MESSAGE FOR DR TRAMMELL Assessment & Plan Final Impression: (1) Indwelling Song catheter present (2) Complicated UTI (urinary tract infection) (3) ESRD on peritoneal dialysis Depart Disposition: ADMITTED Last Vital Signs Date Time Temp Pulse Resp B/P (MAP) Pulse Ox O2 Delivery O2 Flow Rate FiO2 12/11/19 23:41 99.1 86 18 178/101 99 Home Meds Reported Medications Amoxicillin (AMOXICILLIN) 250 Mg Capsule, 500 MG PO TID, #30 CAP 08/10/19 Fluconazole (DIFLUCAN) 100 Mg Tablet, 100 MG PO DAILY, #14 0 Refills 08/10/19 Insulin Glargine (LANTUS 3ML PEN) 100 Units/1 Ml Inj, UNITS SC TIDWM 08/05/19 Magnesium Oxide (MAG-OXIDE) 400 Mg Tablet, 400 MG PO TID 08/05/19 Nifedipine (NIFEDIPINE ER) 30 Mg Tablet.er, 30 MG PO BID 08/05/19 Sodium Bicarbonate (SODIUM BICARBONATE) 650 Mg Tablet, 1300 MG PO TID 08/05/19 Medications in the ED Ondansetron HCl 4 mg NOW STAT IV ; Start 12/11/19 at 23:39; Stop 12/11/19 at 23:43; Status DC MARIELLE MARSH MD Dec 11, 2019 23:52
[2019-12-12] VITALS (11 sets, daily range): BP systolic 118–181; BP diastolic 82–106
[2019-12-12 00:22] LABS: BASOPHILS % 0.6 % (0.0-1.0); EOSINOPHILS # (AUTO) 0.1 (0.0-0.4); EOSINOPHILS % 2.8 % (0.0-6.0); HEMATOCRIT 36.9 % (38.2-49.6); LYMPHOCYTES # (AUTO) 1.2 (1.0-3.2); LYMPHOCYTES % 24.8 % (18.0-39.1); MEAN CORPUSCULAR HEMOGLOBIN 24.2 pg (28-32); MEAN CORPUSCULAR HGB CONC 29.8 g/dL (31-35); MEAN CORPUSCULAR VOLUME 81.1 fL (81-99); MONOCYTES # (AUTO) 0.2 (0.2-0.8); MONOCYTES % 5.2 % (4.4-11.3); NEUTROPHILS # (AUTO) 3.1 (2.1-6.9); NEUTROPHILS % 66.2 % (38.7-80.0); PLATELET COUNT 135 x10e3/uL (140-360); RED BLOOD COUNT 4.55 x10e6/uL (4.3-5.7); RED CELL DISTRIBUTION WIDTH 16.1 % (11.7-14.4)
[2019-12-12 00:28] LABS: CLARITY,URINE CLOUDY (CLEAR); COLOR,URINE YELLOW (YELLOW)
[2019-12-12 00:29] LABS: BILIRUBIN,URINE NEGATIVE (NEGATIVE); KETONES,URINE NEGATIVE (NEGATIVE); LEUKOCYTE ESTERASE ,URINE 1+ (NEGATIVE); NITRITE,URINE NEGATIVE (NEGATIVE); PROTEIN,URINE DIPSTICK >=300 (NEGATIVE); URINE UROBILINOGEN 0.2 mg/dL (0.2 - 1)
[2019-12-12 00:40] LABS: BACTERIA,URINE MANY /HPF; EPITHELIAL CELLS,URINE FEW /LPF; RBC,URINE >50 /HPF (0-5); WBC,URINE (MAN) >50 /HPF (0-5)
[2019-12-12 00:41] LABS: ALBUMIN 2.2 g/dL (3.5-5.0); ALBUMIN/GLOBULIN RATIO 0.4 (0.8-2.0); ALKALINE PHOSPHATASE 163 IU/L (40-150); BLOOD UREA NITROGEN 47 mg/dL (7-26); BUN/CREATININE RATIO 6 (6-25); CARBON DIOXIDE 18 mmol/L (22-29); CHLORIDE 106 mmol/L (98-107); CREATININE, SERUM 7.55 mg/dL (0.72-1.25); EST GLOMERULAR FILTRATION RATE 8 ML/MIN (60-); GLUCOSE 264 mg/dL (74-118); SODIUM 136 mmol/L (136-145)
[2019-12-12] MEDS: SODIUM CHLORIDE FLUSH 10 ML SYR INJ PRN ×2 (00:45→02:01)
[2019-12-12] MEDS ORDERED: MEROPENEM 500MG 500 MG in SODIUM CHLORIDE 0.9% 50ML 50 ML IV SCH (00:45)
[2019-12-12] MEDS ORDERED: MEROPENEM 500MG/ NS 50ML 50 ML ONE (00:55)
[2019-12-12 01:00] LABS: ALANINE AMINOTRANSFERASE < 6 IU/L (0-55); CALCIUM 5.6 mg/dL (8.4-10.2)
--- NOTE | 2019-12-12 01:10 | Diagnostic Imaging Report ---
EXAMINATION: CHEST SINGLE (PORTABLE) INDICATION: ^generalized weakness ^Y COMPARISON: 08/04/2019 FINDINGS: AP view TUBES and LINES: None. LUNGS: Low lung volumes. There is no evidence of pneumonia or pulmonary edema. PLEURA: No pleural effusion or pneumothorax. HEART AND MEDIASTINUM: The cardiomediastinal silhouette is unremarkable. BONES AND SOFT TISSUES: No acute osseous lesion. Soft tissues are unremarkable. UPPER ABDOMEN: No free air under the diaphragm. IMPRESSION: No acute thoracic abnormality. Signed by: Dr. Tanvir Wesley MD on 12/12/2019 1:07 AM
[2019-12-12] MEDS ORDERED: HYDROMORPHONE 1MG/1ML INJ IV PRN (01:15)
[2019-12-12] MEDS ORDERED: CALCIUM GLUCONATE 10% INJ 4.65 MEQ in SODIUM CHLORIDE 0.9% 50ML 50 ML IV ONE (01:15)
[2019-12-12] MEDS ORDERED: DEXTROSE 50% SYRINGE 50 ML IV PRN ×2 (01:15→09:15)
--- OUTSIDE RECORDS SUMMARY | 2019-12-12 01:16 | XMS REPORT | Clinical Summary ---
Author Author [facility] Address Unknown Phone Unavailable Care Team Providers [employer] Name Role Phone Donald Potts MD PCP [...] Julito Gaurav Kidney Follow-up (TXP - [employer] [place] - RENAL/PANCREAS TXP AUTH PENDING) 09/14/2019 Documentation [...] other specified complication (HCC) 05/03/2019 Lab Transplant oLrie Driver Kidney Eval (Consent Forms ) 04/13/2019 [...] Transplant Julito Gaurav Kidney Follow-up (TXP - [facility] - RENAL EVAL APPRVL) 03/29/2019 Documentation Transplant Bisi Crawford RN End stage renal disease (HCC) (Primary D x); Type 1 diabetes mellitus with other specified complication (HCC) 02/25/2019 Orders Only Transplant Melani Finney MA Referral - Kidney/Pancreas Txp 02/21/2019 Telephone Transplant after 12/11/2018 Surgical History Surgery Date Site/Laterality Comments JOINT REPLACEMENT Rt knee external fixator CHOLECYSTECTOMY 02/23/2015 - 02/23/2016 CYSTOSCOPY W/ URETERAL 11/24/2015 STENT PLACEMENT - 12/24/2015 ARTHROPLASTY, KNEE, TOTAL 03/27/2016 Knee/N/A Proc edure: RIGHT KNEE ANTIBIOTIC REMOCAL, RIGHT TOTAL KNEE ARTHROPLASTY; Surgeon: Silke Chowdary MD; Location: [facility] 19 OR; ervice: Orthopedics; Laterality: N/A; Medical devices from this surgery are i n the Implants section. SUPRAPUBIC CATHETER 02/23/2017 - INSERTION 03/25/2017 CYSTOSCOPY W/ URETERAL 12/24/2016 STENT REMOVAL - 01/22/2017 REVISION, ARTHROPLASTY, 04/16/2017 Knee/Right Proced ure: RIGHT TOTAL KNEE ARTHROPLASTY REVISION; KNEE COMPLEX WOUND CLOSURE, EXCI JAMAL DISTAL FEMUR; Surgeon: Silke Chowdary MD; Location: [facility] 19 OR; Service: Orthopedics; Laterality: [...] notified and will call patient Patient is Gnosticist Kika Tierney noti fied and will call patient. Suprapubic catheter (HCC) 03/24/2017 in placed. m id abdomen Neurogenic bladder Wears glasses Does not exercise due to knee problem. Gallstones 2009 with surgery Dentition All teeth intact and secure d PONV (postoperative nausea and vomiting) Chronic kidney disease (CKD), stage IV (severe) ([facility]) History of pancreatitis Gall stone Foot [...] ot Implanted Type Area Manufactur er 11/22/2025 [id number] / / [id number] Screw Bone Canc Dome 6.5x25mm Ltxf Hip Joint Right: Knee DEPUY [place] - [id number] Implants ORTHO Implanted: Qty: 1 on 03/27/2016 by Silke Chowdary MD at [facility] 01/22/2026 [id number] / / [id number] Screw Bone Canc Dome 6.5x25mm Ltxf Hip Joint Right: Knee DEPUY [place] - [id number] Implants ORTHO Implanted: Qty: 1 on 03/27/2016 by Silke Chowdary MD at [facility] 10/23/2026 [id number] / / [id number] Vardaman Stem [id number] Fluted - IPM Right: Knee DEPUY [id number] IMPLANT ORTHOPAEDI Implanted: Qty: 1 on 04/16/2017 by [employer] Silke Chowdary MD at [facility] 12/23/2026 [id number] / / [id number] Vardaman Fem Slv Ful Por 40mm - IPM Right: Knee DEPUY [id number] IMPLANT ORTHOPAEDI Implanted: Qty: 1 on 04/16/2017 by [employer] Silke Chowdary MD at [facility] 11/22/2025 [id number] / / [id number] [facility]s/S/ 10mm - IPM Right: Knee DEPUY [id number] IMPLANT ORTHOPAEDI Implanted: Qty: 1 on 04/16/2017 by [employer] Silke Chowdary MD at [facility] 11/22/2024 [id number] / / [id number] Srom [facility] Dist Aug Xs/S/ 10mm - IPM Right: Knee DEPUY [id number] IMPLANT ORTHOPAEDI Implanted: Qty: 1 on 04/16/2017 by [employer] Silke Chowdary MD at [facility] 10/23/2021 [id number] / / [id number] [facility]Pin Med Rt 71x66 - IPM Right: Knee DEPUY [id number] IMPLANT ORTHOPAEDI Implanted: Qty: 1 on 04/16/2017 by [employer] Silke Chowdary MD at [facility] 10/24/2019 [id number] / / [id number] Lps Univ Tib Hin Ins Med 31mm - IPM Right: Knee DEPUY [id number] IMPLANT ORTHOPAEDI Implanted: Qty: 1 on 04/16/2017 by [employer] Silke Chowdary MD at [facility] 01/22/2026 [id number] / / [id number] Augment Fml P.F.C Sigma Distl Rt Sz Knee Joint Right: Kne e DEPUY 5 4mm - [id number] Implants ORTHO Implanted: Qty: 1 on 03/27/2016 by Silke Chowdary MD at [facility] 01/22/2026 [id number] / / [id number] Stem Tib Cementd [id number] P.F.C Knee Joint Right: Knee DEPUY Sigma - [id number] Implants ORTHO Implanted: Qty: 1 on 03/27/2016 by Silke Chowdary MD at [facility] 10/22/2020 [id number] / / [id number] Augment Fml P.F.C Sigma Distl Rt Sz Knee Joint Right: Kne e DEPUY 5 8mm - [id number] Implants ORTHO Implanted: Qty: 1 on 03/27/2016 by Silke Chowdary MD at [facility] 09/22/2025 [id number] / / [id number] Stem Tib Cementd 23a88ve Knee Joint Right: Knee DEPUY P.F.C.Sigma - [id number] Implants ORTHO Implanted: Qty: 1 on 03/27/2016 by Silke Chowdary MD at [facility] 12/23/2020 [id number] / / [id number] Patella Prosths Oval / Dome 3-Post Knee Joint Right: Knee DEPUY 38mm Std Uhmwpe - [id number] Implants ORTHO Implanted: Qty: 1 on 03/27/2016 by Silke Chowdary MD at [facility] 05/23/2020 [id number] / / [id number] Insert Tib Stblzd Rp Sz 5 25mm Knee Joint Right: Knee DEPUY P.F.C Sigma - [id number] Implants ORTHO Implanted: Qty: 1 on 03/27/2016 by Silke Chowdary MD at [facility] 02/22/2026 [id number] / / [id number] Tray Rev Mbt 5x53.1x80.6x61.8mm - Knee Joint Right: Knee DEPUY [id number] Implants ORTHO Implanted: Qty: 1 on 03/27/2016 by Silke Chowdary MD at [facility] 09/22/2025 [id number] / / [id number] Component Fml Rt N-Por Tc3 Sz 5 Knee Joint Right: Knee DEPUY [id number] P.F.C Sigma - [id number] Implants ORTHO Implanted: Qty: 1 on 03/27/2016 by Silke Chowdary MD at [facility] 01/22/2026 [id number] / / [id number] Adapter Fml P.F.C Sigma 5deg - Knee Joint Right: Knee DEPUY [id number] Implants ORTHO-KNEE Implanted: Qty: 1 on 03/27/2016 by Silke Gutierres MD at [facility] 11/22/2025 [id number] / / [id number] Adapter Fml P.F.C Sigma Ofst [place] Knee Joint Right: Knee DEPUY +2/-2mm - [id number] Implants ORTHO-KNEE Implanted: Qty: 1 on 03/27/2016 by Silke Gutierres MD at [facility] 01/22/2017 [id number] / / [id number] Cement Bone Hiviscocty 40gr Surgical Right: Knee DE PUY Smartset - [id number] Bone ORTHO Implanted: Qty: 2 on 03/27/2016 by Silke Monge MD at [facility] 12/23/2016 [id number] / / [id number] Cement Bone Hiviscocty 40gr Surgical Right: Knee DE PUY Smartset - [id number] Bone ORTHO Implanted: Qty: 1 on 03/27/2016 by Silke Monge MD at [facility] 10/23/2018 [id number] / / [id number] Cement Bone Hiviscocty 40gr Surgical Right: Knee DE PUY Smartset - [id number] Bone ORTHO Implanted: 04/16/2017 at [facility] (Quantity not on file) 12/24/2020 [id number] / / [id number] Cement Bone Prep Univl Insrtr Sculp Surgical Right: Gilbert handley SANDOR Fml [place] Suct Sm - [id number] Implants; IN STRUMENT Implanted: Qty: 1 on 03/27/2016 by [employer]; S Silke Chowdary MD at [facility] Extenders; Surgical Wires [id number] / / Immobilizer Knee Tripnl Dlx W/ Patl Surgical N/A: N/A DEROYAL Strp Univl Canvas 24in - [id number] Implants; IN DUSTRIES Implanted: 04/16/2017 at [facility] Expanders; HOSPITAL (Quantity not on file) [...] (HCC) URINE CULTURE Routine 04/06/2019 8:57 AM LOAN WORKOUT OFFICER TREPONEMA PALLIDUM AB Routine 04/06/2019 8:00 AM LOAN WORKOUT OFFICER RPR Routine 04/06/2019 8:00 AM LOAN WORKOUT OFFICER HEPATITIS A ANTIBODY IGM Routine 04/06/2019 8:00 AM LOAN WORKOUT OFFICER ESTIMATED GFR Routine 04/06/2019 8:00 AM LOAN WORKOUT OFFICER DRUG YUEN 9, SER/LILIAN, SCRN Routine 04/06/2019 End stage renal disease W/RFLX TO CONF 8:00 AM LOAN WORKOUT OFFICER (HCC) Type 1 diabetes mellitus with other specified complication (HCC) ABO/RH Routine 04/06/2019 End stage renal disease 8:00 AM LOAN WORKOUT OFFICER (HCC) Type 1 diabetes mellitus with other specified complication (HCC) NICOTINE AND COTININE, Routine 04/06/2019 End sta ge renal disease SERUM 8:00 AM LOAN WORKOUT OFFICER (HCC) Type 1 diabetes mellitus with other specified complication (HCC) IA-2 ANTIBODY Routine 04/06/2019 End stage renal disease 8:00 AM LOAN WORKOUT OFFICER (HCC) Type 1 diabetes mellitus with other specified complication (HCC) ISLET CELL AB, IGG Routine 04/06/2019 End stage r enal disease 8:00 AM LOAN WORKOUT OFFICER (HCC) Type 1 diabetes mellitus with other specified complication (HCC) GLUTAMIC ACID Routine 04/06/2019 End stage renal disease DECARBOXYLASE AB 8:00 AM LOAN WORKOUT OFFICER (HCC) Type 1 diabetes mellitus with other specified complication (HCC) HEMOGLOBIN A1C Routine 04/06/2019 End stage renal disease 8:00 AM LOAN WORKOUT OFFICER (HCC) Type 1 diabetes mellitus with other specified complication (HCC) C-PEPTIDE Routine 04/06/2019 End stage renal disease 8:00 AM LOAN WORKOUT OFFICER (HCC) Type 1 diabetes mellitus with other specified complication (HCC) PARTIAL THROMBOPLASTIN Routine 04/06/2019 End sta ge renal disease TIME (PTT) 8:00 AM LOAN WORKOUT OFFICER (HCC) Type 1 diabetes mellitus with other specified complication (HCC) PROTHROMBIN TIME WITH INR Routine 04/06/2019 End stage renal disease 8:00 AM LOAN WORKOUT OFFICER (HCC) Type 1 diabetes mellitus with other specified complication (HCC) HC COMPLETE BLD COUNT Routine 04/06/2019 End stag e renal disease W/AUTO DIFF 8:00 AM LOAN WORKOUT OFFICER (HCC) Type 1 diabetes mellitus with other specified complication (HCC) SYPHILIS TOTAL ANTIBODY Routine 04/06/[address] age renal disease 8:00 AM LOAN WORKOUT OFFICER (HCC) Type 1 diabetes mellitus with other specified complication (HCC) HEPATITIS C ANTIBODY Routine 04/06/2019 End stage renal disease 8:00 AM LOAN WORKOUT OFFICER (HCC) Type 1 diabetes mellitus with other specified complication (HCC) HEPATITIS B SURFACE Routine 04/06/2019 End stage renal disease ANTIGEN 8:00 AM LOAN WORKOUT OFFICER (HCC) Type 1 diabetes mellitus with other specified complication (HCC) HEPATITIS B SURFACE AB, Routine 04/06/[address] age renal disease QUANTITATIVE 8:00 AM LOAN WORKOUT OFFICER (HCC) Type 1 diabetes mellitus with other specified complication (HCC) HEPATITIS B CORE ANTIBODY Routine 04/06/2019 End stage renal disease TOTAL 8:00 AM LOAN WORKOUT OFFICER (HCC) Type 1 diabetes mellitus with other specified complication (HCC) HEPATITIS A ANTIBODY Routine 04/06/2019 End stage renal disease TOTAL 8:00 AM LOAN WORKOUT OFFICER (HCC) Type 1 diabetes mellitus with other specified complication (HCC) HIV AG/AB COMBINATION Routine 04/06/2019 End stag e renal disease 8:00 AM LOAN WORKOUT OFFICER (HCC) Type 1 diabetes mellitus with other specified complication (HCC) URINALYSIS SCREEN AND Routine 04/06/2019 End stag e renal disease MICROSCOPY, WITH REFLEX 8:00 AM LOAN WORKOUT OFFICER (HCC) TO CULTURE Type 1 diabetes mellitus with other specified complication (HCC) COMPREHENSIVE METABOLIC Routine 04/06/[address] age renal disease PANEL 8:00 AM LOAN WORKOUT OFFICER (HCC) Type 1 diabetes mellitus with other specified complication (HCC) after 12/11/2018 Results * POC glucose (08/19/2019 12:21 PM CDT) Only the most recent of 22 results within the time period is included. POC glucose 145 (H) 65 - 99 mg/dL [place] Comment: ALEVISM Haircutter Name: [facility] Device ID: [id number] Chartable: [facility] Notified RN Specimen Blood Performing Organization Address City/State/[facility] Code P [place] Number [facility] DEPARTMENT OF [address] [place] [id number] PATHOLOGY AND GENOMIC MEDICINE [place] ALEVISM [address] [place] [address] * Urine culture (08/18/2019 10:47 PM CDT) Only the most recent of 3 results within the time period is included. Urine culture No growth after 24 hours [place] isolate Comment: ALEVISM Specimen Information HOSPITAL Specimen Source: Urine Specimen Site: Catheterized Specimen Urine - Catheterized Performing Organization Address City/State/[facility] Code [place] Number [facility] [place] [address] PATHOLOGY AND GENOMIC MEDICINE [address] * Urinalysis screen and microscopy, with reflex to culture (08/18/2019 9:05 PM CDT) Only the most recent of 3 results within the time period is included. Specimen site Catheterized [facility] Color, UA Straw [facility] Appearance, UA Hazy [facility] Specific 1.012 1.001 - 1.035 [place] gravity, [facility] pH, UA 5.0 5.0 - 8.5 [facility] Protein, UA 1+ (A) Negative [facility] Glucose, UA 2+ (A) Negative [facility] Ketones, UA Negative Negative [facility] Bilirubin, UA Negative Negative [facility] Blood, UA Moderate (A) Negative [facility] Nitrite, UA Negative Negative [facility] Urobilinogen, <2.0 <2.0 [facility] Leukocyte Small (A) Negative [facility] WBC, UA 25 (H) 0 - 1 /HPF [facility] RBC, UA 4 0 - 5 /HPF [facility] Bacteria, UA Few None seen [facility] Yeast, UA None seen [facility] Yeast with None seen [place] Specimen Urine Performing Organization Address [facility] P p[place] Number [facility] [place] [address] PATHOLOGY AND [facility] MEDICINE [address] * Hepatitis B surface antigen (08/16/2019 4:45 AM CDT) Only the most recent of 2 results within the time period is included. Hepatitis B Non-reactive Non-reactive [facility] Ag [facility] Specimen Blood Performing Organization Address City/[facility]/ZIP Code P [place] Number [facility] [place] [address] PATHOLOGY AND GENOMIC MEDICINE [address] * COVID-19 qualitative PCR (08/16/2019 12:30 AM CDT) Interpretation Negative results do not STYLES preclude 2019-nCoV infection ALEVISM and should not be used as the HOSPITAL sole basis for treatment or other patient management decisions. Negative results must be combined with clinical observations, patient history, and epidemiological information. COVID-19 Not-Detected Not-Detected [place] qualitative PCR [facility] HOSPITAL COVID-19 See link below for PDF Lab [place] qualitative PCR ReportComment: Case Number: ALEVISM [id number] HOSPITAL Specimen Performing Organization Address [facility]/ZIP [facility] [place] Number [facility] DEPARTMENT OF [address] [place] [address] PATHOLOGY AND GENOMIC MEDICINE [address] * Estimated GFR (08/15/2019 4:42 AM CDT) Only the most recent of 4 results within the time period is included. [facility] Estimated GFR 13 (A) mL/min/1.73 m2 [place] Comment: [facility] Interpretation G1 >=90 Normal or [...] published in 2014. Specimen Performing Organization Address City/[facility] P p[place] Number [facility] [place] [address] PATHOLOGY AND GENOMIC MEDICINE [address] * CBC with platelet and differential (08/15/2019 4:42 AM CDT) Only the most recent of 3 results within the time period is included. Pathologist [facility] WBC 3.73 (L) 4.50 - 11.00 k/uL [facility] RBC 4.16 (L) 4.40 - 6.00 m/uL [facility] HGB 10.1 (L) 14.0 - 18.0 g/dL [facility] HCT 34.5 (L) 41.0 - 51.0 % [facility] MCV 82.9 82.0 - 100.0 fL [facility] MCH 24.3 (L) 27.0 - 34.0 pg [facility] MCHC 29.3 (L) 31.0 - 37.0 g/dL [facility] RDW - SD 42.0 37.0 - 55.0 fL [facility] MPV 8.5 (L) 8.8 - 13.2 fL [facility] Platelet count 190 150 - 400 k/uL [facility] Nucleated RBC 0.00 /100 WBC [facility] Neutrophils 56.8 39.0 - 69.0 % [facility] Lymphocytes 30.3 25.0 - 45.0 % [facility] Monocytes 7.5 0.0 - 10.0 % [facility] Eosinophils 3.5 0.0 - 5.0 % [facility] Basophils 0.3 0.0 - 1.0 % [facility] Immature 1.6 (H)Comment: "Immature 0.0 - 1.0 % [facility] granulocytes granulocytes" (promyelocytes, METHOD IST myelocytes, metamyelocytes) [facility] Specimen Blood Performing Organization Address City/[facility]/ZIP Code [place] Number [facility] [place] [address] PATHOLOGY AND GENOMIC MEDICINE [address] * Hemoglobin A1c (08/15/2019 4:42 AM CDT) Only the most recent of 2 results within the time period is included. Pathologist [facility] Hemoglobin A1C 6.5 (H) 4.0 - 5.6 % [place] Comment: ALEVISM HbA1c cutoffs for diagnosing HOSPITAL diabetes: 4.0% [...] Organization Address City/State/ZIP [place] [address] PATHOLOGY AND GENOMIC MEDICINE [address] * Basic metabolic panel (08/15/2019 4:42 AM CDT) Pathologist [facility] Sodium 139 135 - 148 mEq/L [facility] Potassium 4.4 3.5 - 5.0 mEq/L [facility] Chloride 101 98 - 112 mEq/L [facility] CO2 23 (L) 24 - 31 mEq/L [facility] Anion gap 15@ANIO 7 - 15 mEq/L [facility] BUN 36 (H) 6 - 20 mg/dL [facility] Creatinine 5.25 (H) 0.70 - 1.20 mg/dL [facility] Glucose 146 (H) 65 - 99 mg/dL [facility] Calcium 8.2 (L) 8.3 - 10.2 mg/dL [facility] Specimen Blood Performing Organization Address City/[facility] P [place] Number [facility] [place] [address] PATHOLOGY AND GENOMIC MEDICINE [address] * ECG 12 lead (08/15/2019 1:09 AM CDT) Pathologist [facility] Ventricular 99 [facility] rate Atrial rate 99 [facility] NV interval 106 [facility] QRSD interval 92 [facility] QT interval 370 [facility] QTC interval 474 [facility] P axis 1 26 [facility] QRS axis 1 1 [facility] T wave axis 75 [facility] EKG impression Sinus rhythm with short [facility] NV-Cannot rule out Inferior infarct , age undetermined-Abnormal ECG-In automated comparison with ECG of 08-APR-2017 16:07,-NV interval has decreased-Questionable change in QRS axis-ST no longer elevated in Inferior leads-T wave amplitude has decreased in Inferior leads-Nonspecific T wave abnormality now evident in Lateral leads-QT has lengthened- Specimen Narrative Performed At This result has an attachment that is n ot available. Performing Organization Address City/[facility]/ZIP Code P p[place] Number [facility] MUSE [address] [place] [address] * Crystal analysis (08/14/2019 6:30 PM CDT) Pathologist [facility] Crystal KneeComment: Right knee joint [place] analysis aspirate ALEVISM specimen type HOSPITAL Monosodium None seen None seen [facility] CPPD crystals None seen None seen [facility] Specimen Fluid Performing Organization Address City/[facility]/ZIP Code [place] Number [facility] [place] [address] PATHOLOGY AND GENOMIC MEDICINE [address] * Cell count and differential, body fluid (08/14/2019 6:30 PM CDT) Misc fluid type Synovial [facility] Color, fluid Red [facility] Appearance, Hazy [facility] RBC, fluid 36,000 /CMM [facility] Nucleated 20,934 /CMM [place] cells, [facility] Fluid See Diff [facility] mononuclear [facility] Neutrophils, 89 % [facility] Lymphocytes, 2 % [facility] Macrophages, 9 % [facility] Specimen Fluid Performing Organization Address City/[facility]/ZIP Code [place] Number [facility] [place] [address] PATHOLOGY [facility] MEDICINE [address] * Fungus smear (08/14/2019 6:28 PM CDT) Fungus smear No fungi observed. STYLES Comment: ALEVISM Specimen Information HOSPITAL Specimen Source: Specimen Site: Knee Specimen Knee Performing Organization Address City/[facility]/ZIP Code [place] Number [facility] [place] [address] PATHOLOGY AND [facility] MEDICINE [address] * AFB culture (08/14/2019 6:28 PM CDT) Pathologist [facility] AFB culture No growth after 6 weeks of [place] isolate incubation. ALEVISM Comment: HOSPITAL Specimen Information Specimen Source: Specimen Site: Knee Specimen Knee Performing Organization Address City/[facility]/ZIP Code [place] Number [facility] [place] [address] PATHOLOGY AND [facility] MEDICINE [address] * AFB stain (08/14/2019 6:28 PM CDT) Pathologist [facility] AFB stain No acid fast bacilli (AFB) [place] seen. ALEVISM Comment: HOSPITAL Specimen Information Specimen Source: Specimen Site: Knee Specimen Knee Performing Organization Address City/[facility]/ZIP Code [place] Number [facility] [place] [address] PATHOLOGY AND [facility] MEDICINE [address] * Fungus culture (08/14/2019 6:28 PM CDT) Fungus culture No growth after 4 weeks of [place] isolate incubation. ALEVISM Comment: HOSPITAL Specimen Information Specimen Source: Specimen Site: Knee Specimen Knee Performing Organization Address City/State/ZIP Code P [place] Number [facility] DEPARTMENT OF [address] [place] [address] PATHOLOGY AND GENOMIC MEDICINE [place] ALEVISM [address] [place] [address] HOSPITAL * Anaerobic culture (08/14/2019 6:28 PM CDT) Anaerobic No anaerobic organisms [facility] culture isolate isolated. ALEVISM Comment: HOSPITAL Specimen Information Specimen Source: Specimen Site: Knee Specimen Synovium - Knee Performing Organization Address City/[facility]/ZIP Code [place] Number [facility] DEPARTMENT OF [address] [place] [address] PATHOLOGY AND [facility] MEDICINE [address] * Aerobic culture (08/14/2019 6:03 PM CDT) Aerobic culture No growth after 3 days. STYLES isolate No growth after 4 days. ALEVISM Comment: HOSPITAL Specimen Information Specimen Source: Specimen Site: Knee Specimen Knee Performing Organization Address City/[facility]/ZIP Code [place] Number [facility] DEPARTMENT OF [address] [place] [address] PATHOLOGY AND [facility] [place]IC[place] [address] HOSPITAL * Gram stain (08/14/2019 6:03 PM CDT) Gram stain Many WBC's STYLES isolate No organisms seen ALEVISM Comment: HOSPITAL Specimen Information Specimen Source: Specimen Site: Knee Specimen Knee Performing Organization Address City/[facility]/ZIP Code [place] Number [facility] DEPARTMENT OF [address] [place] [address] PATHOLOGY AND [facility] MEDICINE [place] ALEVISM [address] [place] [address] HOSPITAL * Blood culture, aerobic & anaerobic (08/14/2019 4:45 PM CDT) Only the most recent of 2 results within the time period is included. Blood culture No growth after 5 days of [place] isolate incubation. ALEVISM Comment: HOSPITAL Specimen Information Specimen Source: Blood Specimen Site: Unspecified Specimen Blood Performing Organization Address City/[facility]/ZIP Code P [place] Number [facility] DEPARTMENT OF [address] [place] [address] PATHOLOGY AND GENOMIC MEDICINE [place] ALEVISM [address] * Partial thromboplastin time, activated (08/14/2019 4:15 PM CDT) Only the most recent of 2 results within the time period is included. Pathologist [facility] PTT 35.3 23.0 - 36.0 sec [facility] Comment: ALEVISM PTT therapeutic range for HOSPITAL unfractionated heparin is 61.0-112.0 seconds which corresponds to Anti-Xa 0.3-0.7 U/ml. Specimen Blood Performing Organization Address City/State/ZIP Code P pascale Number [facility] DEPARTMENT [address] MEDICINE [address] * Sedimentation rate (08/14/2019 4:15 PM CDT) Pathologist [facility] Sedimentation 87 (H) 0 - 10 mm/hr [facility] Specimen Blood Performing Organization Address [facility] P pascale Number [facility] [place] [address] PATHOLOGY AND [facility] MEDICINE [address] * Prothrombin time with INR (08/14/2019 4:15 PM CDT) Only the most recent of 2 results within the time period is included. Pathologist [facility] Prothrombin 16.0 (H) 11.5 - 14.5 sec [facility] INR 1.3 [facility]ISE Comment: ALEVISM The International Normalized HOSPITAL Ratio (INR) is a therapeutic monitoring tool for patients who are stable on oral anticoagulant therapy. An INR of 2.0-3.0 is suggested for deep vein thrombosis/pulmonary embolism. Specimen Blood Performing Organization Address City/[facility] P pascale Number [facility] [place] [address] PATHOLOGY AND [facility] MEDICINE [address] * C-reactive protein (08/14/2019 4:15 PM CDT) [facility] CRP 5.40 (H) 0.00 - 0.50 mg/dL [facility] Specimen Blood Performing Organization Address City/[facility]/ZIP [facility] P pascale Number [facility] [place] [address] PATHOLOGY AND [facility] MEDICINE [address] * Comprehensive metabolic panel (08/14/2019 4:15 PM CDT) Only the most recent of 2 results within the time period is included. Sodium 138 135 - 148 mEq/L [facility] Potassium 4.2 3.5 - 5.0 mEq/L [facility] Chloride 102 98 - 112 mEq/L [facility] CO2 24 24 - 31 mEq/L [facility] Anion gap 12@ANIO 7 - 15 mEq/L [facility] BUN 35 (H) 6 - 20 mg/dL [facility] Creatinine 5.44 (H) 0.70 - 1.20 mg/dL [facility] Glucose 233 (H) 65 - 99 mg/dL [facility] Calcium 8.1 (L) 8.3 - 10.2 mg/dL [facility] Protein 7.3 6.3 - 8.3 g/dL [facility] Comment: [facility] 4.6-7.0 g/dL 1 week 4.4-7.6 g/dL 7 months-1year 5.1-7.3 g/dL 1-2 years 5.6-7.5 g/dL >3 years 6.0-8.0 g/dL 18-150 6.3-8.3 g/dL Albumin 1.9 (L) 3.5 - 5.0 g/dL [facility] A/G ratio 0.4 (L) 0.7 - 3.8 [facility] Alkaline 216 (H) 40 - 129 U/L [facility] phosphatase [facility] AST 14 10 - 50 U/L [facility] ALT 13 5 - 50 U/L [facility] Total bilirubin <0.2 0.0 - 1.2 mg/dL [facility] Specimen Blood Performing Organization Address City/State/ZIP Code P pascale Number [facility] DEPARTMENT OF [address] [place] [address] PATHOLOGY AND GENOMIC MEDICINE [address] * XR Knee 4+ Vw Right [...] patellar component appear intact. No loosening noted. [facility] Procedure Note Interface, Radiology Results Incoming - [...] c omponent appear intact. No loosening noted. [facility] Performing Organization Address City/State/ZIP Code P pascale Number [facility] [address] [place] [address] * Cardiolipin antibodies (08/01/2019 12:17 PM CDT) Only the most recent of 2 results within the time period is included. Cardiolipin IgG 5 0 - 14 GPL [facility]PRISE Comment: ALEVISM Negative <15 GPL HOSPITAL Indeterminate 15-20 GPL Positive >20 GPL Cardiolipin IgM 7 0 - 12 MPL [facility] Comment: ALEVISM Negative <13 MPL HOSPITAL Indeterminate 13-20 MPL Positive >20 MPL Specimen Blood Performing Organization Address [facility] P pascale Number [facility] DEPARTMENT OF [address] [place] [address] PATHOLOGY AND GENOMIC MEDICINE [facility] ALEVISM [address] [place] [address] HOSPITAL * XR Chest 2 Vw (05/03/2019 [...] demonstr ate no definite abnormality. Negative examination. [facility]-[id number] Procedure Note Interface, Radiology Results Incoming - [...] structures demonstrate no definite abnormality. Negative examination. [facility]-[id number] Performing Organization Address City/State/ZIP Code P pascale Number [facility] [address] [place] [address] * CT Abdomen Pelvis Wo Contrast (05/03/2019 [...] lymph nodes, nonspecific though may be reactive. [id number] Procedure Note Hm Interface, Radiology Results - [...] lymph nodes, nonspecific though may be reactive. [id number] Performing Organization Address [facility] [place] [address] * Low resolution full typing by SSO (05/03/2019 8:30 AM CDT) Interpretation Note: HLA typing was performed [place]ST[place] N by PCR-SSO DNA based ALEVISM procedures. HOSPITAL Note: The serological phenotype is an interpretation based on molecular typing data. [facility] Low resolution See link below for PDF Lab [facility] full typing by Report ALEVISM SSO [facility]ITAL Specimen Blood Performing Organization Address [facility] P pascale Number [facility] [place] [address] PATHOLOGY AND GENOMIC MEDICINE [address] * C1Q class 1 & 2 antibody (05/03/2019 8:30 AM CDT) [facility] C1Q class 1 & 2 See link below for PDF Lab [facility]ISE antibody Report [facility] Specimen Blood Performing Organization Address [facility] P pascale Number [facility] [place] [address] PATHOLOGY AND GENOMIC MEDICINE [facility] * HSV 1 & 2 glycoprotein G Ab, IgG (05/03/2019 8:30 AM CDT) HSV 1 NegativeComment: Negative: No Negative [facility]ISE glycoprotein G IgG antibodies to HSV1 ALEVISM Ab, IgG detected. HOSPITAL HSV 2 NegativeComment: Negative: No Negative [facility] glycoprotein G IgG antibodies to HSV2 ALEVISM Ab, IgG detected. HOSPITAL Specimen Serum Performing Organization Address [facility] P pascale Number [facility] [place] [address] PATHOLOGY AND GENOMIC MEDICINE [address] * Helder-Petit virus antibody test (05/03/2019 8:30 AM CDT) EBV Ab to viral Positive (A) Negative [facility]ISE capsid Ag, IgG [facility] EBV Ab to viral Negative Negative [facility] capsid Ag, IgM [facility] EBV Ab to Positive (A) Negative [facility] nuclear Ag, IgG [facility] EBV Ab to early Negative Negative [facility] (D) Ag, IgG [facility] Helder-Petit SEE COMMENTComment: Infection [facility] virus antibody Status: Results may suggest ALEVISM interpretation past EBV infection. HOSPITAL Specimen Serum Performing Organization Address City/State/ZIP Code P pascale Number [facility] DEPARTMENT OF [address] [place] [address] PATHOLOGY AND GENOMIC MEDICINE [address] * TB T-SPOT (05/03/2019 8:30 AM [...] FOR USE WITH T=SPOT.TB TEST. Performed by: [facility] Molecular Tuberculosis Laboratory [facility] ([id number]) [place], [place] [address] Specimen Blood Performing Organization Address City/State/ZIP Code P pascale Number [facility] DEPARTMENT OF [address] [place] [address] PATHOLOGY AND GENOMIC MEDICINE [facility] REF [facility] * Single antigen beads (05/03/2019 8:30 AM CDT) [facility] interpretation information: ALEVISM DP1=DPB1*01:01/DPA1*02:01 [facility] DP5=DPB1*05:01/DPA1*02:02 DQ9=DQB1*03:03/DQA1*02:01 OV17=AFP7*01:03 PK83=ROJ8*01:01 DR51 is a self-antigen [facility] serum ID [id number] [facility] SAB serum 05/03/2019 08:30 AM [place]PRISE collection D&T [facility] SAB class I Negative SURPRISE antibody [facility] SAB cPRA class 0 [facility] AZLE SAB class II DP1,DR10,DP5,DR53,DR51,DQ9 [facility]ISE antibody [facility] SAB cPRA class 74 [facility] Single antigen See link below for PDF Lab [facility] Specimen Blood Performing Organization Address City/State/ZIP Code P pascale Number [facility] DEPARTMENT OF [address] [place] [address] PATHOLOGY AND GENOMIC MEDICINE [facility] [address] [place] [address] [facility] * Miscellaneous referral test (05/03/2019 8:30 AM CDT) Only the most recent of 2 results within the time period is included. Misc test name PTNT LEMA SHOWN ABOVE Misc test SEE NOTE SHOWN ABOVE result Comment: Report Status: FINAL Prothrombin Q44132V Mutation, B PTNT Interpretation This individual DOES NOT have the Prothrombin [id number] mutation. Although the Prothrombin [id number] mutation is absent, the individual may have other genetic and environmental risk factors for thrombosis. Consider genetic consultation and counseling of potentially affected family members regarding laboratory testing. ADDITIONAL INFORMATION This test is a direct mutation analysis using PCR amplification, signal generation and release by cleavage of sequence specific alleles ([employer], [employer], [place], [place]). .............................. .............................. Prothrombin K41647T Mutation, B Negative Reference Value: Negative .............................. .............................. PTNT Reviewed By DARRYL Oneil - - - - - - - - - - - - - - - - - - - - - - - - - - - - - - Laboratory Notes: This test has been modified from the hot dog vendor's instructions. Its performance characteristics were determined by [facility] in a manner consistent with CLIA requirements. This test has not been cleared or approved by the U.S. Food and Drug Administration. + + : PERFORMING SITE LEGEND : + + : : [facility] : : : [address] [place] [address] : + + Specimen Narrative Performed At Prothrombin C07512I Mutation [facility] DEPARTMENT OF [facility] Test ID: PTNT PATHOLOGY AND Source: Whole Blood GENOMIC MEDICINE Performing Organization Address City/State/ZIP Code P pascale Number [facility] DEPARTMENT OF [address] [place] [address] [facility] PATHOLOGY AND GENOMIC MEDICINE SHOWN ABOVE * HSV type 1/2 combined Ab, IgM (05/03/2019 8:30 AM CDT) [facility] HSV 1/2 0.71 <=0.89 IV [facility] REF LAB combined Ab, Comment: IgM INTERPRETIVE [...] more than 12 months post-infection. Performed by [facility], [address] [place] [id number] [email or web address], Trung Boyer MD, Lab. Director Specimen Serum Performing Organization Address [facility] P pascale Number [facility] [address] [place], [place] [id number] [facility] REF LAB [address] [place] [address] * Homocystine, plasma (05/03/2019 8:30 AM CDT) [facility] Homocysteine 17.5 (H) 0.0 - 15.0 umol/L [facility]ISE Comment: ALEVISM The risk for coronary vascular HOSPITAL disease increases progressively with homocysteine concentration. A 3.4 times greater risk is associated with a homocysteine concentration of greater than 15.8 umol/L as compared to a concentration below 14.1 umol/L. Specimen Plasma specimen Performing Organization Address City/[facility] P pascale Number [facility] DEPARTMENT OF [address] [place] [address] PATHOLOGY AND GENOMIC MEDICINE [address] * HLA autologous crossmatch (05/03/2019 8:30 AM CDT) [facility] source Peripheral Blood [facility] [id number] SURPRISE serum ID [facility] serum 05/03/2019 08:30 AM SURPRISE collection D&T [facility] flow XM T Negative SURPRISE cell result, [facility] flow XM B Negative [facility]ISE cell result, [facility] HLA autologous See link below for PDF Lab [place] crossmatch Report [facility] Specimen Blood Performing Organization Address City/[facility]/ZIP Code P pascale Number [facility] DEPARTMENT OF [address] [place] [address] PATHOLOGY [address] * Cytomegalovirus Ab, IgM (05/03/2019 8:30 AM CDT) Pathologist [facility] Cytomegalovirus Negative Negative SURPRISE Ab, IgM [facility] Specimen Serum Performing Organization Address City/[facility]/ZIP [facility] P pascale Number [facility] [place] [address] * ABORh - transplant (05/03/2019 8:30 AM CDT) Pathologist [facility] ABO grouping O [facility] Rh type POS [facility] Specimen Blood Performing Organization Address City/[facility] P pascale Number [facility] [place] [address] * Functional protein S (05/03/2019 8:30 AM CDT) Pathologist [facility] 91 74 - 160 % [facility]PRISE protein S Comment: ALEVISM Functional Protein S HOSPITAL performed. If result is decreased Total and Free Protein S Antigen will be performed. Specimen Blood Performing Organization Address City/[facility] P pascale Number [facility] DEPARTMENT OF [address] [place] [address] PATH[address] * Functional protein C (05/03/2019 8:30 AM CDT) Pathologist [facility] 56 (L) 70 - 165 % [facility]ISE protein C Comment: ALEVISM Low Protein C Activity and HOSPITAL prolonged Prothrombin time consistent with vitamin K deficiency, warfarin therapy or liver disease. Recommend repeating Protein C when PT is normal. Reviewed by Huan Keita MD, PhD. Specimen Blood Performing Organization Address City/[facility]/ZIP Code P pascale Number [facility] [place] [address] [address] HOSPITAL * Lupus anticoagulant panel (05/03/2019 8:30 AM CDT) Pathologist [facility] Prothrombin 15.9 (H) 11.5 - 14.5 sec SURPRISE time [facility] INR 1.3 [facility]ISE Comment: ALEVISM The International Normalized HOSPITAL Ratio (INR) is a therapeutic monitoring tool for patients who are stable on oral anticoagulant therapy. An INR of 2.0-3.0 is suggested for deep vein thrombosis/pulmonary embolism. PTT 34.0 23.0 - 36.0 sec [facility]ISE Comment: ALEVISM PTT therapeutic range for HOSPITAL unfractionated heparin is 61.0-112.0 seconds which corresponds to Anti-Xa 0.3-0.7 U/ml. PTT lupus 36.1 27.0 - 38.0 sec [facility] anticoagulant Comment: ALEVISM Lupus anticoagulant (LA) panel HOSPITAL consists of [...] diagnosis. DRVVT 45.4 29.0 - 46.0 sec [facility] Comment: ALEVISM This test has been modified HOSPITAL from the manufacturers instructions. The performance characteristics were determined by [facility] in a manner consistent with CLIA requirements. This test has not been cleared or approved by the U.S. Food and Drug Administration. Specimen Blood Performing Organization Address City/State/ZIP Code P pascale Number [facility] [place] [address] PATHOLOGY AND GENOMIC MEDICINE [address] * Cytomegalovirus Ab, IgG (05/03/2019 8:30 AM CDT) Pathologist [facility] Cytomegalovirus Positive (A) Negative [facility]PRISE Ab, IgG Comment: ALEVISM Positive; IgG antibody to CMV HOSPITAL detected which may indicate exposure to CMV infection. Specimen Serum Performing Organization Address City/[facility]/ZIP Code P pascale Number [place] [id number] PATHOLOGY AND GENOMIC MEDICINE [address] * Fibrinogen (05/03/2019 8:30 AM CDT) Fibrinogen 627 (H) 200 - 450 mg/dL [facility] Specimen Blood Performing Organization Address City/[facility]/ZIP Code P pascale Number [facility] [place] [address] PATHOLOGY AND [facility] MEDICINE [address] * Antithrombin III level (05/03/2019 8:30 AM CDT) Antithrombin 81 80 - 130 % [facility] Specimen Blood Performing Organization Address City/[facility]/ZIP Code P pascale Number [facility] [place] [address] PATHOLOGY AND [facility] MEDICINE [address] * Triglycerides (05/03/2019 8:30 AM CDT) Triglycerides 103 <150 mg/dL [facility] Specimen Plasma specimen Performing Organization Address City/[facility] P pascale Number [facility] [place] [address] PATHOLOGY AND [facility] MEDICINE [address] * Phosphorus level (05/03/2019 8:30 AM CDT) Phosphorus 4.6 (H) 2.4 - 4.5 mg/dL [facility] Specimen Plasma specimen Performing Organization Address City/[facility]/ZIP [facility] P pascale Number [facility] DEPARTMENT OF [address] [place] [address] PATHOLOGY AND [facility] MEDICINE [address] * Parathyroid hormone (05/03/2019 8:30 AM CDT) PTH 507 (H) 15 - 65 pg/mL [facility] Specimen Blood Performing Organization Address City/[facility]/ZIP [facility] P pascale Number [facility] [place] [address] PATHOLOGY AND GENOMIC MEDICINE [address] * LDH (05/03/2019 8:30 AM CDT) LDH 235 (H) 87 - 225 U/L [facility] Specimen Plasma specimen Performing Organization Address City/[facility] P pascale Number [facility] [place] [address] PATHOLOGY AND GENOMIC MEDICINE [address] * Glucose level (05/03/2019 8:30 AM CDT) Glucose 146 (H) 65 - 99 mg/dL [facility] Specimen Plasma specimen Performing Organization Address City/[facility] P pascale Number [facility] [place] [address] PATHOLOGY AND GENOMIC MEDICINE [address] * Creatinine level (05/03/2019 8:30 AM CDT) Creatinine 4.40 (H) 0.70 - 1.20 mg/dL [facility] Specimen Plasma specimen Performing Organization Address [facility] P pascale Number [facility] [place] [address] PATHOLOGY AND GENOMIC MEDICINE [address] * Cholesterol (05/03/2019 8:30 AM CDT) Cholesterol 86 <200 mg/dL [facility] Specimen Plasma specimen Performing Organization Address [facility] P pascale Number [facility] [place] [address] PATHOLOGY AND GENOMIC MEDICINE [address] * Amylase level (05/03/2019 8:30 AM CDT) Amylase 46 28 - 100 U/L [facility] Specimen Plasma specimen Performing Organization Address [facility] P pascale Number [facility] [place] [address] PATHOLOGY AND GENOMIC MEDICINE [address] * Nicotine and cotinine, serum (04/06/2019 8:00 AM LOAN WORKOUT OFFICER) Nicotine <2.0 0.0 - 1.9 ng/mL [facility] Cotinine <2.0 0.0 - 1.9 ng/mL [facility] Comment: ALEVISM This test was developed and HOSPITAL its performance characteristics determined by the Department of Pathology and Genomic Medicine, [facility]. Serum nicotine and metabolite cotinine are tested by HPLC tandem mass spectrometry. It has not been cleared or approved by FDA. The laboratory is regulated under CLIA as qualified to perform high-complexity testing. This test is used for clinical purposes. It should not be regarded as investigational or for research. Specimen Blood Performing Organization Address City/State/ZIP Code P pascale Number [facility] DEPARTMENT [address] * Syphilis total antibody (04/06/2019 8:00 AM LOAN WORKOUT OFFICER) Syphilis total Reactive (A) Non-reactive [facility] antibody Comment: ALEVISM Treponemal antibodies are HOSPITAL screened reactive. Non-treponemal antibody test, RPR will be followed. Specimen Blood Performing Organization Address City/State/ZIP Code P pascale Number [address] * HIV Ag/Ab combination (04/06/2019 8:00 AM LOAN WORKOUT OFFICER) HIV Ag/Ab Non-reactive Non-reactive [facility] Specimen Blood Performing Organization Address City/[facility]/ZIP Code P pascale Number [address] * IA-2 antibody (04/06/2019 8:00 AM LOAN WORKOUT OFFICER) IA-2 antibody see note [facility] Comment: Islet Antigen-2 (IA-2) Autoantibody, Serum [facility] test code [id number] IA-2, Autoantibody <5.4 U/mL (Ref Interval: 0.0-7.4) 999 INTERPRETIVE INFORMATION: Islet Antigen-2 (IA-2) Autoantibody, Serum A value greater than or equal to 7.5 Units/mL is considered positive for IA-2 autoantibodies. This assay is intended for the quantitative determination of autoantibodies to Islet Antigen-2 (IA-2) in human serum. Results should be interpreted within the context of clinical symptoms. Specimen Serum Performing Organization Address [facility] P pascale Number [facility] [address] [place] [address] [facility] REF LAB [address] [place] [address] * Hepatitis B surface Ab, quantitative (04/06/2019 8:00 AM LOAN WORKOUT OFFICER) [facility] Hepatitis B <3.10 IU/L [facility] REF LAB surface Ab Comment: The anti-HBs [...] Cellular and Tissue-Based Products (HCT/P). Performed by [employer], [address] [place] [id number] [email or web address], Trung Boyer MD, Lab. Director Specimen Serum Performing Organization Address [facility] P pascale Number [facility] [address] [place] [address] [facility] REF LAB [address] [place] [address] * Hepatitis C antibody (04/06/2019 8:00 AM LOAN WORKOUT OFFICER) [facility] Hepatitis C Ab Non-reactive Non-reactive [facility] Specimen Blood Performing Organization Address [facility] P pascale Number [facility] DEPARTMENT OF [address] [place] [address] PATHOLOGY AND GENOMIC MEDICINE [address] * Hepatitis A antibody IgM (04/06/2019 8:00 AM LOAN WORKOUT OFFICER) Hepatitis A IgM Non-reactive Non-reactive [facility] Specimen Performing Organization Address City/State/ZIP Code P pascale Number [facility] [place] [address] PATHOLOGY AND GENOMIC MEDICINE [address] * Hepatitis A antibody total (04/06/2019 8:00 AM LOAN WORKOUT OFFICER) Hepatitis A Reactive (A) Non-reactive [facility] total Ab Comment: ALEVISM Hepatitis A Total Antibody HOSPITAL reactive. Hepatitis A IgM antibody will be performed and reported separately when completed. Specimen Blood Performing Organization Address City/[facility] [place] [address] PATHOLOGY AND GENOMIC MEDICINE [address] * Drug yuen 9, ser/lilian, scrn w/rflx to conf (04/06/2019 8:00 AM LOAN WORKOUT OFFICER) Amphetamines, Negative Cutoff 30 ng/mL [facility] [...] use. Test developed and characteristics determined by [employer]. See Compliance Statement B: [employer]/ [place] [address] [email or web address], Trung Boyer MD, Lab. Director Specimen Serum Performing Organization Address [facility] P pascale Number [employer] [place] REF LAB [address] [place] [address] * Glutamic acid decarboxylase Ab (04/06/2019 8:00 AM LOAN WORKOUT OFFICER) Pathologist [facility] Glutamic acid <5.0 0.0 - 5.0 IU/mL [facility] REF [place] B decarb Ab Comment: INTERPRETIVE INFORMATION: Glutamic Acid Decarboxylase Antibody A value greater than 5.0 IU/mL is considered positive for Glutamic Acid Decarboxylase Antibody (HERMELINDA Ab). This assay is intended for the semi-quantitative determination of the HERMELINDA Ab in human serum. Results should be interpreted within the context of clinical symptoms. Performed by [employer], [address] [place] [id number] [email or web address], Trung Boyer MD, Lab. Director Specimen Serum Performing Organization Address [facility] P pascale Number [employer] REF LAB [address] [place] [address] * Hepatitis B core antibody total (04/06/2019 8:00 AM LOAN WORKOUT OFFICER) Pathologist [facility] Hepatitis B Non-reactive Non-reactive [place] core total Ab [facility] Specimen Blood Performing Organization Address City/State/ZIP Code P p[place]ale Number [facility] DEPARTMENT OF [address] [place] [address] PATHOLOGY AND [facility]INE [address] * Treponema pallidum Ab (04/06/2019 8:00 AM LOAN WORKOUT OFFICER) Syphilis Non-reactiveComment: Non-reactive [facility] treponemal Ab Treponemal antibody is not ALEVISM confirmed. HOSPITAL Specimen Performing Organization Address City/State/ZIP Code P pascale Number [facility] [place] [address] PATHOLOGY [address] * ABO and Rh (04/06/2019 8:00 AM LOAN WORKOUT OFFICER) Pathologist [facility] ABO grouping O [facility] Rh type POS [facility] Specimen Blood Performing Organization Address City/State/ZIP Code P p[place]ale Number [facility] DEPARTMENT OF [address] [place] [address] PATHOLOGY [address] * C-peptide (04/06/2019 8:00 AM LOAN WORKOUT OFFICER) Pathologist [facility] C-peptide 2.2 1.1 - 4.4 ng/mL [facility] Specimen Plasma specimen Performing Organization Address City/[facility]/ZIP Code P p[place]ale Number [facility] [place] [address] PATHOLOGY AND [facility]ICINE [address] * Islet cell Ab, IgG (04/06/2019 8:00 AM LOAN WORKOUT OFFICER) Islet cell Ab <1:4 <1:4 [facility] REF LAB Comment: INTERPRETIVE INFORMATION: Islet Cell Ab, IgG Islet cell antibodies (ICAs) are associated with type 1 diabetes (TID), an autoimmune endocrine disorder. ICAs may be present years before the onset of clinical symptoms. To calculate [employer] (JDF) units: multiply the titer x 5 (1:8 8 x 5 = 40 JDF Units). Test developed and characteristics determined by [employer]. See Compliance Statement A: [employer]/[facility] Performed by [employer], [address] [place] [address] [email or web address], Trung Boyer MD, Lab. Director Specimen Serum Performing Organization Address City/State/ZIP Code P pascale Number [facility] [address] [place] [address] [facility] [address] [place] [address] * RPR (04/06/2019 8:00 AM LOAN WORKOUT OFFICER) RPR Non-reactive Non-reactive [facility] Comment: ALEVISM Results suggest no serological HOSPITAL evidence of active syphilis infection. Possible syphilis (early or latent) or previously treated syphilis cannot be ruled out. Confirmatory treponemal test, TP-PA will be performed. Specimen Performing Organization Address City/[facility]/ZIP Code P pascale Number [facility] DEPARTMENT OF [address] [place] [address] PATHOLOGY AND GENOMIC MEDICINE [facility] ALEVISM [address] [place] [address] HOSPITAL after 12/11/2018 Insurance Type Payer Benefit Subscriber ID Effective Phone Address Plan / Dates Group PPO BCBS BCBS OUT [id number] 2018-P OF STATE resent Advance Directives For more information, please contact: [phone] Patient Rental Representative Explanation Type Date Recorded Advance Directives, Living Will and Medical Power of Operations Research Scientist Advance Directives, 03/29/2019 11:41 AM Living Will and Medical Power of Operations Research Scientist
--- OUTSIDE RECORDS SUMMARY | 2019-12-12 01:18 | XMS REPORT | Continuity of Care Document ---
Author Author [facility] t Organization [facility] Address [address] [place] [address] Phone Unavailable Care Team Providers Care Photograph Tinter Name Role Phone MD ABHIJIT YODER MD PCP Alexandre MARSH Attphys Unavailable Aliza FOSS, Arcelia Attphys Unavailable Dominique [facility], Srini Mckeon Attphys Reg LERNER M Melani Attphys Unavailable Ty FOSS, Bisi Attphys Unavailable Gaurav Vila Attphys Unavailable Bisi Silva LCSW Attphys Unavailable Jason OLSON, Sonido Osorio Attphys [phone] Bill OLSON, Meghna Attphys Kirit OLSON, Srini Reeder Attphys ABHIJIT YODER Attphys Unavailable Alex OLSON, Hola Montenegro Attphys YANETH WEAVER Attphys Unavailable Lorie Driver Attphys Unavailable CASTRO JALLOH Attphys Unavailable DELLA NG M.D. Attphys Unavailable ROSEY, P LUZ MARINA Attphys Unavailable MARK, S AMBICA Attphys Unavailable MANEEVESE, V ADRIEL Attphys Unavailable Yayo HILLS Attphys Unavailable Omayra TRAMMELL Admphys Unavailable VARINDER BETH Admphys Unavailable YODERABHIJIT Admphys Unavailable HAMPEL, CASTRO Admphys Unavailable Payers Payer Name Policy Type Policy Number Effective Date Expiration Date Christiano richardson BCBSBCBS OUT OF [id number] 2018-PresentPPO [id number] 2018 00:00:00 Alejandro Arias [employer] [place] Ppo [id number] 2018 00:00:00 [facility] [employer] Ppo [id number] [facility] Problems Condition Name Condition Details [...] renal failure Problem Active 2015-08-09 00:00 :00 [facility] Dehydration Dehydration Problem Active 2015-08-09 00:00:00 [facility] Diarrhea Diarrhea Problem Active 2015-08-09 00:00:00 [facility] GI bleed GI bleed Problem Active 2015-08-09 00:00:00 [facility] Hyperglycemia Hyperglycemia Problem Active 2015-08-09 00:00:00 [facility] Sepsis Sepsis Problem Active 2015-04-15 00:00:00 [facility] Renal insufficiency Renal insufficiency Problem Active 2015-04-15 00:00 :00 [facility] Bacteremia Bacteremia Problem Active 2015-03-30 00:00:00 [facility] Prostatitis Prostatitis Problem Active 2015-03-30 00:00:00 [facility] Complicated urinary tract infection UTI (urinary tract infection ) Problem Active 2015-03-30 00:00:00 [facility] Pyelonephritis Pyelonephritis Problem Active 2015-02-10 00:00:00 [facility] History of left foot drop History of left foot drop Problem Active [facility] Arthralgia of right ankle Arthralgia of right ankle Problem Active [facility] Equinus contracture of right ankle Equinus contracture of right ankle Problem Active [facility] Fracture of right tibial plateau, closed , with routine healing, subsequent encounter Fracture of right tibial plateau, closed , with routine healing, subsequent encounter Problem Active [facility] Acute renal insufficiency Acute renal insufficiency Problem Active [facility] Bladder wall thickening Bladder wall thickening Problem Active [facility] Fever Fever Problem Active [facility] Hydroureteronephrosis Hydroureteronephrosis Problem Active [facility] Hypomagnesemia Hypomagnesemia Problem Active [facility] Indwelling Barcenas catheter present Indwelling catheter presen t on admission Problem Active [facility] Obstructive uropathy Obstructive uropathy Problem Active [facility] Displacement of ureteral stent Ureteral stent displacement Problem Activ e [facility] Vomiting Vomiting Problem Active [facility] Abdominal pain Abdominal pain Problem Active [facility] Constipation Constipation Problem Active [facility] Edema of extremities Edema extremities Problem Active [facility] End-stage renal disease on peritoneal dialysis Problem Active [facility] Allergies, Adverse Reactions, Alerts Allergy Name Allergy Type Status Severity Reaction(s) Onset Date Inacti ve Date Treating Clinician Comments Source Iodinated Contrast Media Allergy to substance Active 11-05-10 00:00:00 [facility] Dye Propensity to adverse reactions to drug Active 2016-03-17 00:00:00 CT contrast. IV dye. Excessive sneezing. Alejandro Arias CT CONTRAST DA Active MO 2015-10-12 00:00:00 [facility] PO CONTRAST Allergy to substance Active Mild 2007-07-06 00:00:00 [facility] Family History Family Member Diagnosis Comments Start Date Stop Date Source Maternal grandmother Hypertension Timi ojeda [employer] Maternal grandmother Kidney disease Alejandro Arias Natural mother Diabetes [facility]ist Social History Social Habit Start Date Stop Date Quantity Comments Source Sex Assigned At [facility] cohenandrea Arias Tobacco use and exposure 2019-08-09 00:00:00 2019-08-09 00:00:00 Alcon aranda used Alejandro Arias Alcohol intake 2019-08-09 00:00:00 2019-08-09 00:00:00 Current non-drinker of alcohol (finding) Alejandro Arias Smoking Status Start Date Stop Date Source Never smoker Alejandro elkins Medications Ordered Medication Name Filled Medication Name Start Date Stop Da te Current Medication? Ordering Clinician Indication Dosage Frequency Signature (SIG) Comments Components Source insulin ASPART (NovoLOG) 100 unit/mL injection 2 13:14:56 2019-08-19 00:00:00 No 5U Q.[id number] In ject 5 Units under the skin 3 (three) times a day before meals. Ana Cristina Arias amoxicillin (AMOXIL) 500 MG capsule 2019-08-19 13:14:5 6 2019-08-19 00:00:00 No 500mg Q.[id number] Take 500 mg by [facility] 3 (three) times a day. Alejandro Arias calcium carbonate (TUMS) 200 mg calcium (500 mg) chewable ta blet 2019-08-19 13:14:52 Yes 1{tbl} Q.[id number] 3D Chew 1 tablet 3 (three) times daily after meals. Alejandro Arias gabapentin (NEURONTIN) 300 mg capsule 2019-08-19 13:14:52 Yes 300mg Q.[id number] Take 300 mg by mouth 3 (three) times a day. Alejandro Arias sodium bicarbonate 650 mg tablet 2019-08-19 13:14:52 Yes 1300mg Q.[id number] Take 1,300 mg by mouth 3 (three) times a day. Alejandro Arias NIFEdipine XL (PROCARDIA XL) 30 MG 24 hr tablet 2019-08-19 13:14 :52 Yes 30mg Q.5D Take 30 mg by mouth 2 (two) times a day. Alejandro Arias magnesium oxide (MAG-OX) 400 mg (241.3 mg magnesium) tablet 2019-08-19 13:14:52 Yes 800mg Q.[id number] 3D Take 800 mg by mouth 3 (three) times a day. Alejandro Arias ciprofloxacin (CIPRO) 500 MG tablet 2019-08-19 00:00:0 0 2019-09-18 23:59:00 No 500mg QD Take 1 tablet (500 mg total) by mouth da darci for 30 days. Alejandro Arias insulin lispro (HumaLOG) 100 unit/mL injection 2 00:00:00 2019-09-17 23:59:00 No 9U Q.[id number] In ject 9 Units under the skin 3 (three) times a day before meals for 30 days. Alejandro Arias doxycycline (VIBRAMYCIN) 100 MG capsule 00:00:00 2019-09-17 23:59:00 No 100mg Q.5D Take 1 capsule (100 mg total) by mouth 2 (two) times a day for 30 days. Alejandro Arias ergocalciferol (VITAMIN D2) 50,000 unit capsule 2019-08-15 11:27:08 2019-08-15 00:00:00 No [id number] Q7D Take 50,000 Units by mouth once [...] TAKE 1 CA PSULE 3 TIMES DAILY. [facility] Furosemide Furosemide 2018-06-27 13:06:00 2018-10-17 00:00:00 No 40 Daily [facility] Nifedipine (Nifedipine Er) 30 Mg TAB.ER.24 Nifedipine (Nifedipine Er) 30 Mg TAB.ER.24 2018-06-27 13:06:00 2018-10-17 00:00:00 No 60 Daily [facility] Amoxicillin Amoxicillin Yes 500 Three Times A Da y [facility] Fluconazole (Diflucan) 100 Mg TABLET Fluconazole (Diflucan) 100 Mg TABLET Yes 100 Daily [facility] Insulin Glargine (Lantus 3ML Pen) 100 Units/1 Ml INJ I nsulin Glargine (Lantus 3ML Pen) 100 Units/1 Ml INJ Yes Three Time s Daily With Meals [facility] Magnesium Oxide (Mag-Oxide) 400 Mg TABLET Magnesium Ox jaziel (Mag-Oxide) 400 Mg TABLET Yes 400 Three Times A Day [facility] Nifedipine (Nifedipine Er) 30 Mg TABLET.ER Nifedipine (Nifedipine Er) 30 Mg TABLET.ER Yes 30 Twice A Day [facility] Sodium Bicarbonate Sodium Bicarbonate Yes 1300 Th ree Times A Day [facility] Fluconazole (Diflucan) 100 Mg TABLET Fluconazole (Diflucan) 100 Mg TABLET 2019-06-22 00:00:00 No 100 Daily [facility] Furosemide (Lasix) 40 Mg TABLET Furosemide (Lasix) 40 Mg TABLET 2019-06-22 00:00:00 No 40 Daily as needed for Edema To Lo wer Extremities [facility] Gabapentin Gabapentin 2019-06-22 00:00:00 No 300 Thr ee Times A Day [facility] Insulin Aspart (Novolog) 100 Unit/1 Ml CARTRIDGE Insul in Aspart (Novolog) 100 Unit/1 Ml CARTRIDGE 2019-06-22 00:00:00 No 5 Befo re Meals [facility] Magnesium Oxide (Magox 400) 400 Mg TABLET Magnesium Ox jaziel (Magox 400) 400 Mg TABLET 2019-06-22 00:00:00 No 2 Three Times A Day [facility] Nifedipine (Nifedipine Er) 60 Mg TAB.ER.24 Nifedipine (Nifedipine Er) 60 Mg TAB.ER.24 2019-06-22 00:00:00 No 30 Twice A Day [facility] Sodium Bicarbonate Sodium Bicarbonate 2019-06-22 00:00:00 No 2 Three Times A Day [facility] Ergocalciferol (Vitamin D2) (Vitamin D2) 2,000 Unit TA BLET Ergocalciferol (Vitamin D2) (Vitamin D2) 2,000 Unit TABLET 2019-05-30 00:00:00 No 42719 Q Week [facility] Lactulose Lactulose 2019-02-11 00:00:00 No 30 Every 6 Hours as needed for Constipation [facility] Metoclopramide Hcl (Reglan) 10 Mg TABLET Metoclopramid e Hcl (Reglan) 10 Mg TABLET 2019-02-11 00:00:00 No 10 Before Meals And At Bedtime [facility] Veltassa Veltassa 2019-02-11 00:00:00 No 1 Daily [facility] Sennosides/Docusate Sodium (Senokot-S Tablet) 1 Each T ABLET Sennosides/Docusate Sodium (Senokot-S Tablet) 1 Each TABLET 2018-10-31 00:00:00 No [facility] Nifedipine (Nifedipine Er) 30 Mg TAB.ER.24 Nifedipine (Nifedipine Er) 30 Mg TAB.ER.24 2018-06-27 00:00:00 No Daily [facility] Vyzulta Vyzulta 2018-06-21 00:00:00 No .024 Daily [facility] Amlodipine Besylate Amlodipine Besylate 2018-05-05 00:00:00 No 10 Daily [facility] Metoprolol Tartrate Metoprolol Tartrate 2018-05-05 00:00:00 No 25 Twice A Day [facility] Ciprofloxacin Hcl (Cipro) 500 Mg TABLET Ciprofloxacin Hcl (C ipro) 500 Mg TABLET 2017-08-29 00:00:00 No 500 Daily [facility] Doxycycline Hyclate Doxycycline Hyclate 2017-08-29 00:00:00 No 100 Twice A Day [facility] Fluconazole Fluconazole 2017-08-29 00:00:00 No 200 D aily [facility] Insulin Detemir (Levemir) 100 Unit/1 Ml VIAL Insulin D etemir (Levemir) 100 Unit/1 Ml VIAL 2017-08-29 00:00:00 No 20 Bedtime [facility] Oxybutynin Chloride (Oxybutynin Chloride Er) 5 Mg TAB. ER.24 Oxybutynin Chloride (Oxybutynin Chloride Er) 5 Mg TAB.ER.24 2017-08-29 00:00:00 No 15 Daily [facility] Cephalexin Cephalexin 2016-06-04 00:00:00 No 500 Fou r Times Daily [facility] Hydrocodone Bit/Acetaminophen ([place] 5-325 Tablet) 1 E ach TABLET Hydrocodone Bit/Acetaminophen ([place] 5-325 Tablet) 1 Each TABLET 2016-06-04 00: 00:00 No 1 Every 6 Hours as needed for Pain [facility] Promethazine Hcl Promethazine Hcl 2016-06-04 00:00:00 No 25 Every 4 Hours [facility] Tramadol Hcl (Ultram) 50 Mg TABLET Tramadol Hcl (Ultram) 50 Mg T ABLET 2016-06-04 00:00:00 No Every 6 Hours as nee ded for Pain [facility] Fluticasone Propionate Fluticasone Propionate 2015-08-08 00:00:00 No 1 Twice A Day [facility] Meropenem (Merrem) 500 Mg INJ Meropenem (Merrem) 500 Mg INJ 2015-08-08 00:00:00 No 500 Every 8 Hours C [facility] Metoclopramide Hcl (Reglan) 10 Mg TABLET Metoclopramid e Hcl (Reglan) 10 Mg TABLET 2015-08-08 00:00:00 No 10 Before Meals And At Bedtime [facility] Pantoprazole Sodium (Protonix) 40 Mg TABLET. Pantopr azole Sodium (Protonix) 40 Mg TABLET. 2015-08-08 00:00:00 No 40 Every Morni ng [facility] Amoxicillin/Potassium Clav (Augmentin 500-125 Tablet) 1 Each TABLET Amoxicillin/Potassium Clav (Augmentin 500-125 Tablet) 1 Each TABLET 2015-04-11 00:00:00 No 500 Twice A Day [facility] Fluconazole (Diflucan) 100 Mg TABLET Fluconazole (Diflucan) 100 Mg TABLET 2015-04-11 00:00:00 No Daily [facility] Tamsulosin Hcl (Flomax*) 0.4 Mg CAP Tamsulosin Hcl (Flomax*) 0.4 Mg CAP 2015-03-30 00:00:00 No .4 Bedtime [facility] Acetaminophen With Codeine (Tylenol With Codeine #3 Ta blet) 1 Each TABLET Acetaminophen With Codeine (Tylenol With Codeine #3 Tablet) 1 Each TABLET 2015-03-08 00:00:00 No 300 Every 6 Hours as nee ded for Pain [facility] Senna Fruit/Conc/Doc Sod/Bisa (Senna-S Tablet) 1 Ea TA B Senna Fruit/Conc/Doc Sod/Bisa (Senna-S Tablet) 1 Ea TAB 2015-03-08 00:00:00 No 1 Bedtime [facility] Hydrocodone Bit/Acetaminophen ([place] 5-325 Tablet) 1 E ach TABLET Hydrocodone Bit/Acetaminophen ([place] 5-325 Tablet) 1 Each TABLET 2015-02-22 00: 00:00 No Daily [facility] Insulin Npl/Insulin Lispro (Humalog Mix 50-50 Kwikpen) 100 Unit/1 Ml INSULN.PEN Insulin Npl/Insulin Lispro (Humalog Mix 50-50 Kwikpen) 100 Unit/1 Ml INSULN.PEN 2015-02-22 00:00:00 No 15 Units Every A.m . [facility] Lisinopril Lisinopril 2015-02-22 00:00:00 No Ketty ly [facility] Amoxicillin/Potassium Clav (Augmentin 875-125 Tablet) 1 Each TABLET Amoxicillin/Potassium Clav (Augmentin 875-125 Tablet) 1 Each TABLET 2015-02-11 00:00:00 No Twice A Day [facility] Cephalexin Monohydrate (Keflex) 500 Mg CAPSULE Cephale leonela Monohydrate (Keflex) 500 Mg CAPSULE 2015-02-11 00:00:00 No 500 Three Cm es A Day [facility] Docusate Sodium (Colace) 100 Mg CAP Docusate Sodium (Colace) 100 Mg CAP 2015-02-11 00:00:00 No Daily [facility] Insulin Glargine,Hum.rec.anlog (Lantus) 100 Unit/1 Ml CARTRIDGE Insulin Glargine,Hum.rec.anlog (Lantus) 100 Unit/1 Ml CARTRIDGE 2014 00:00:00 No 45 Units At Bedtime [facility] Metformin Hcl Metformin Hcl 2015-02-11 00:00:00 No 500 Twice Daily [facility] Vital Signs Vital Name Observation Time Observation Value Comments Source Systolic blood pressure 2019-08-19 10:13:08 137 mm[Hg] [facility] Diastolic blood pressure 2019-08-19 10:13:08 84 mm[Hg] [facility] Heart rate 2019-08-19 10:13:08 61 /min [facility] Body temperature 2019-08-19 10:13:08 36.5 Ashley [place] [place] [facility] Respiratory rate 2019-08-19 10:13:08 16 /min [place] [facility] Oxygen saturation in Arterial blood by Pulse oximetry 08-18 10:13:08 98 /min [facility] Body height 2019-08-17 12:23:58 180.3 cm [facility] Body weight 2019-08-14 21:10:00 95.255 kg [facility] BMI 2019-08-14 21:10:00 29.29 kg/m2 [facility] Body Temperature 2019-08-10 11:13:00 98.9 [degF] [facility] BMI (Body Mass Index) 2019-08-05 13:40:00 29.3 kg/m2 [facility] Weight 2019-08-04 20:39:00 210 [lb_av] [facility] Body Temperature 2019-06-22 20:30:00 97.4 [degF] [facility] BMI (Body Mass Index) 2019-06-12 17:12:00 29.3 kg/m2 [facility] Weight 2019-06-12 11:09:00 210 [lb_av] [facility] Procedures Procedure Date / Time Performed Performing Clinician Sourc e POC GLUCOSE 2019-08-19 12:21:00 Kirit Varinder Nicole ethodist POC GLUCOSE 2019-08-19 07:18:00 Kirit Varinder Nicole ethodist URINE CULTURE 2019-08-18 22:47:00 Castro Jalloh odist POC GLUCOSE 2019-08-18 21:27:00 O'Reinaldo Varinder Nicole ethodist URINALYSIS SCREEN AND MICROSCOPY, WITH REFLEX TO CULTURE 202 21:05:00 CliffordlottieCastro barakat Hinduism POC GLUCOSE 2019-08-18 19:02:00 O'Reinaldo Varinder Nicole ethodist POC GLUCOSE 2019-08-18 17:56:00 Kirit Varinder Nicole ethodist POC GLUCOSE 2019-08-18 15:48:00 Kirit Varinder Nicole ethodist POC GLUCOSE 2019-08-18 15:27:00 Kirit Varinder Nicole ethodist POC GLUCOSE 2019-08-18 12:41:00 Kirit Varinder Nicole ethodist POC GLUCOSE 2019-08-18 08:20:00 O'Reinaldo Varinder Nicole ethodist POC GLUCOSE 2019-08-17 21:13:00 Kirit Varinder Nicole ethodist POC GLUCOSE 2019-08-17 17:44:00 Kirit Varinder Nicole ethodist POC GLUCOSE 2019-08-17 12:23:00 Kirit Varinder Nicole ethodist POC GLUCOSE 2019-08-17 07:51:00 Kirit Varinder Nicole ethodist POC GLUCOSE 2019-08-16 22:54:00 O'Reinaldo Varinder Nicole ethodist POC GLUCOSE 2019-08-16 16:53:00 Kirit Varinder Nicole ethodist POC GLUCOSE 2019-08-16 11:38:00 Kirit Varinder Nicole ethodist POC GLUCOSE 2019-08-16 07:47:00 Kirit Varinder Nicole ethodist HEPATITIS B SURFACE ANTIGEN 2019-08-16 04:45:00 Christine Jerez COVID-19 QUALITATIVE PCR 2019-08-16 00:30:00 Varinder Beth POC GLUCOSE 2019-08-15 21:02:00 Varinder Beth ethodist POC GLUCOSE 2019-08-15 17:51:00 Varinder Beth ethodist POC GLUCOSE 2019-08-15 11:48:00 Varinder Beth ethodist POC GLUCOSE 2019-08-15 07:49:00 Varinder Beth ethodist HC COMPLETE BLD COUNT W/AUTO DIFF 2019-08-15 04:42:00 Sherice Beth BASIC METABOLIC PANEL 2019-08-15 04:42:00 Varinder Beth HEMOGLOBIN A1C 2019-08-15 04:42:00 Varinder Beth ethodist ESTIMATED GFR 2019-08-15 04:42:00 Varinder Beth ethodist ECG 12-LEAD 2019-08-15 01:09:38 Varinder Beth ethodist POC GLUCOSE 2019-08-14 23:13:00 Varinder Beth ethsonali CELL COUNT AND DIFFERENTIAL, BODY FLUID 2019-08-14 18:30:00 Adriel England CRYSTAL ANALYSIS 2019-08-14 18:30:00 Adriel Joyner [facility] ANAEROBIC CULTURE 2019-08-14 18:28:00 Adriel Joyner [facility] URINE CULTURE 2019-08-14 18:28:00 Bill Meghna Alejandro [facility] odist FUNGUS CULTURE 2019-08-14 18:28:00 BillMeghna Alejandro Meth odist AFB CULTURE 2019-08-14 18:28:00 BillMeghna Alejandro Meth odist FUNGUS SMEAR 2019-08-14 18:28:00 BillMeghna Alejandro Meth odist AFB STAIN 2019-08-14 18:28:00 BillMeghna Alejandro Meth odist AEROBIC CULTURE 2019-08-14 18:03:00 BillMeghna Alejandro Meth odist GRAM STAIN 2019-08-14 18:03:00 Meghna Khan URINALYSIS SCREEN AND MICROSCOPY, WITH REFLEX TO CULTURE 202 17:45:00 Adriel Joyner BLOOD CULTURE, AEROBIC & ANAEROBIC 2019-08-14 16:45:00 Varinder Beth BLOOD CULTURE, AEROBIC & ANAEROBIC 2019-08-14 16:15:00 Joyner, Luther Arias HC COMPLETE BLD COUNT W/AUTO DIFF 2019-08-14 16:15:00 Joyner, Pallavi Arias PROTHROMBIN TIME WITH INR 2019-08-14 16:15:00 JoynerAdriel PARTIAL THROMBOPLASTIN TIME (PTT) 2019-08-14 16:15:00 Joyner, Pallavi Arias SEDIMENTATION RATE 2019-08-14 16:15:00 Adriel Joyner ethodist C-REACTIVE PROTEIN 2019-08-14 16:15:00 JoynerAdriel tsai ethodist COMPREHENSIVE METABOLIC PANEL 2019-08-14 16:15:00 JoynerAdriel ESTIMATED GFR 2019-08-14 16:15:00 Meghna Khan XR KNEE 4+ VW RIGHT 2019-08-14 14:34:[address] of abdomen and pelvis without contrast 2019-08-04 00:00:00 [facility] CARDIOLIPIN ANTIBODIES 2019-08-01 12:17:00 Yaneth Weaver X-ray of chest, two views 2019-06-16 00:00:00 [facility] RESECTION OF RIGHT KIDNEY, OPEN APPROACH 2019-06-13 00:00:00 [facility] PERFORMANCE OF URINARY FILTRATION, <6 HRS/DAY 2019-06-12 00:00:0 0 [facility] Ultrasound guidance for vascular access 2019-06-02 00:00:00 FAIZA ENGEL [facility] INSERT OF TUNNEL VAD INTO CHEST SUBCU/FASCIA, OPEN APPROACH 2019-06-02 00:00:00 [facility] REMOVAL OF TUNNEL VAD FROM TRUNK SUBCU/FASCIA, OPEN AP PROACH 2019-06-02 00:00:00 [facility] INSERTION OF INFUSION DEV INTO SUP VENA CAVA, PERC APPROACH 2019-06-02 00:00:00 [facility] ULTRASONOGRAPHY OF SUPERIOR VENA CAVA, GUIDANCE 2019-06-02 00:00 :[address] [facility] [address] of abdomen and pelvis without contrast 2019-05-30 00:00:00 [facility] Ultrasound guidance for vascular access 2019-05-16 00:00:00 FAIZA ENGEL [facility] INSERT OF TUNNEL VAD INTO CHEST SUBCU/FASCIA, PERC APPROACH 2019-05-16 00:00:00 [facility] INSERTION OF INFUSION DEVICE INTO R [facility], PERC APPROACH 05-15 00:00:00 [facility] ULTRASONOGRAPHY OF SUPERIOR VENA CAVA, GUIDANCE 2019-05-16 00:00 :00 [facility] INSERT OF INFUSION DEV INTO PERITON CAV, PERC ENDO APPROACH 2019-05-12 00:00:00 [facility] IRRIGATION OF PERITON CAV USING DIALYSATE, PERC APPROACH 2019-04 00:00:00 [facility] REMOVAL OF INTRALUMINAL DEVICE FROM URETER, ENDO 2019-05-10 00:0 0:00 [facility] DILATION OF RIGHT URETER WITH INTRALUMINAL DEVICE, ENDO 00:00:00 [facility] CHANGE DRAINAGE DEVICE IN BLADDER, EXTERNAL APPROACH 2019-05-10 00:00:00 [facility] X-ray of chest, two views 2019-05-06 00:00:00 CACJC TINEO [facility] XR CHEST 2 VW 2019-05-03 09:35:[address] ABDOMEN PELVIS WO CONTRAST 2019-05-03 09:28:50 Claudio Weaver CHOLESTEROL 2019-05-03 08:30:00 Yaneth Weaver TRIGLYCERIDES 2019-05-03 08:30:00 Yaneth Weaver GLUCOSE LEVEL 2019-05-03 08:30:00 Weaver, Yaneth mendez [facility] CREATININE LEVEL 2019-05-03 08:30:00 Weaver, Yaneth lucero [facility] PHOSPHORUS LEVEL 2019-05-03 08:30:00 Weaver, Yaneth Mistry on Hinduism LDH 2019-05-03 08:30:00 Weaver, Yaneth Cunninghamist CYTOMEGALOVIRUS AB, IGG 2019-05-03 08:30:00 Weaver, Yaneth Cunninghamist CYTOMEGALOVIRUS AB, IGM 2019-05-03 08:30:00 Weaver, Yaneth Cunninghamist HELDER-VEE VIRUS ANTIBODY TEST 2019-05-03 08:30:00 Weaver, Kermit Arias HSV TYPE 1/2 COMBINED AB, IGM 2019-05-03 08:30:00 Weaver, Claudio Cunninghamist HSV 1 & 2 GLYCOPROTEIN G AB, IGG 2019-05-03 08:30:00 Weaver, Kermit Cunninghamist PARATHYROID HORMONE 2019-05-03 08:30:00 Weaver, Yaneth Cunninghamist ABORH - TRANSPLANT 2019-05-03 08:30:00 Weaver, Yaneth Cunninghamist TB T-SPOT 2019-05-03 08:30:00 Weaver, Yaneth Arias HOMOCYSTINE, PLASMA 2019-05-03 08:30:00 Weaver, Yaneth Cunninghamist ANTITHROMBIN III LEVEL 2019-05-03 08:30:00 Weaver, Yaneth Arias FUNCTIONAL PROTEIN C 2019-05-03 08:30:00 Weaver, Yaneth Arias FUNCTIONAL PROTEIN S 2019-05-03 08:30:00 Weaver, Yaneth Arias CARDIOLIPIN ANTIBODIES 2019-05-03 08:30:00 Weaver, Yaneth Arias MTHFR MUTATION 2019-05-03 08:30:00 Weaver, Yaneth Cunninghamist FIBRINOGEN 2019-05-03 08:30:00 Weaver, Yaneth Cunninghamist LUPUS ANTICOAGULANT PANEL 2019-05-03 08:30:00 Weaver, Yaneth Allen [facility]ism AMYLASE LEVEL 2019-05-03 08:30:00 Weaver, Yaneth mendez Hinduism ESTIMATED GFR 2019-05-03 08:30:00 Weaver, Yaneth Arias [...] B CORE ANTIBODY TOTAL 2019-04-06 08:00:00 Weaver, Silvia Arias HEPATITIS B SURFACE AB, QUANTITATIVE 2019-04-06 [...] Arias NICOTINE AND COTININE, SERUM 2019-04-06 08:00:00 Owen, Yaneth Arias ABO/RH 2019-04-06 08:00:00 Weaver, Yaneth Arias DRUG LIZAMA 9, SER/LILIAN, SCRN W/RFLX TO CONF 2019-04-06 08:00:00 Weaver, Yaneth Arias ESTIMATED GFR 2019-04-06 08:00:00 Weaver, Yaneth Arias HEPATITIS A ANTIBODY IGM 2019-04-06 08:00:00 Weaver, Yaneth Arias RPR 2019-04-06 08:00:00 Weaver, Yaneth Arias TREPONEMA PALLIDUM AB 2019-04-06 08:00:00 Weaver, Yaneth Arias REMOVAL OF DRAINAGE DEVICE FROM KIDNEY, EXTERNAL APPROACH 2018-02 00:00:00 [facility] DRAINAGE OF RIGHT KIDNEY WITH DRAINAGE DEVICE, PERC AP PROACH 2019-02-15 00:00:00 [facility] DILATION OF RIGHT URETER WITH INTRALUMINAL DEVICE, ENDO 00:00:00 [facility] DILATION OF LEFT URETER, ENDO 2019-02-15 00:00:00 [facility] FLUOROSCOPY OF KIDNEY, URETER & BLADDER USING L OSM CO NTRAST 2019-02-15 00:00:00 [facility] CHANGE DRAINAGE DEVICE IN BLADDER, EXTERNAL APPROACH 2019-02-15 00:00:00 [facility] Echo guide for biopsy 2019-02-15 00:00:00 [facility] RESECTION OF PREPUCE, EXTERNAL APPROACH 2018-11-05 00:00:00 [facility] CHANGE DRAINAGE DEVICE IN BLADDER, EXTERNAL APPROACH 2018-11-05 00:00:00 [facility] DILATION OF BILATERAL URETERS, ENDO 2018-11-05 00:00:00 [facility] FLUOROSCOPY OF KIDNEY, URETER & BLADDER USING L [facility] CO NTRAST 2018-11-05 00:00:00 [facility] EXCISION OF LOWER ESOPHAGUS, ENDO, DIAGN 2018-11-01 00:00:00 [facility] EXCISION OF STOMACH, PYLORUS, ENDO, DIAGN 2018-11-01 00:00:[address] [facility] CT of abdomen and pelvis without contrast 2018-10-31 00:00:[address] [facility] CT of abdomen and pelvis without contrast 2018-10-18 00:00:00 [facility] Plan of Care Planned Activity Planned Date Details Comments Source Future Scheduled Test 2019-09-24 00:00:00 INFLUENZA VACCINE [code = INFLUENZA VACCINE] [facility] Scheduled Test 1990 00:00:00 DIABETIC FOOT EXAM [code = DIABETIC FOOT EXAM] [facility] Scheduled Test 1980 00:00:00 DIABETIC RETINAL E YE EXAM [code = DIABETIC RETINAL EYE EXAM] [facility] Instructions Heart Healthy Diet [facility] Instructions Infection Control [facility] Instructions Urinary Tract Infection - Men [facility] Encounters Start Date/Time End Date/Time Encounter Type Admission Type [facility] Care Department Encounter ID Source 2019-08-14 00:00:00 2019-08-19 00:00:00 Inpatient JAYLIN BETH [facility] [id number] [facility] 2019-08-04 23:31:00 2019-08-10 12:40:00 Discharged Inpatient 1 YODER ABHIJIT [facility] [id number] [facility] 2019-08-01 00:00:00 2019-08-01 00:00:[address] [facility] [id number] [facility] 2019-08-01 00:00:00 2019-08-01 00:00:00 Outpatient MERCY PRESSLEY [facility] [id number] [facility] 2019-06-12 11:12:00 2019-06-22 20:38:00 Discharged Inpatient 1 GABINO [facility] [id number] [facility] 2019-06-09 03:55:00 2019-06-09 06:51:00 Departed Emergency Room 1 [facility] [id number] ELLIOTT Swan . [facility] 2019-05-30 02:39:00 2019-06-03 17:47:00 Discharged Inpatient 1 ABHIJIT YODER [facility] [id number] [facility] 2019-05-06 21:01:00 2019-05-21 14:22:00 Discharged Inpatient 1 ABHIJIT YODER [facility] [id number] [facility]. [facility] 2019-05-03 00:00:00 2019-05-03 00:00:[address] [facility] [id number] [facility] 2019-05-03 00:00:00 2019-05-03 00:00:[address] [facility] [id number] [facility] 2019-05-03 00:00:00 2019-05-03 00:00:00 Outpatient WEAVERSILVIA BULLOCKA BENJAMIN [facility] [id number] [facility] 2019-03-20 22:29:00 2019-03-21 03:04:00 Departed Emergency Room [facility] [id number] [facility] 2019-02-15 09:15:00 2019-02-20 13:07:00 Discharged Inpatient 3 CASTRO JALLOH [facility] [id number] [facility] 2019-01-14 13:07:00 2019-01-14 13:07:00 Registered Clinic 3 MAU PITTS [facility] [id number] [facility] 2018-12-10 08:30:00 2018-12-10 08:30:00 Appointment; NELSON NG M.D. MELTON, DANIELLE, M.D. [facility] at [facility] [id number] [facility] 2018-11-11 07:14:00 2018-11-11 12:00:00 Departed Emergency Room 1 LUZ MARINA CURRIE [facility] [id number] [facility] 2018-10-31 03:34:00 2018-11-08 11:44:00 Discharged Inpatient 1 BEV FLORES [facility] [id number] [facility] 2018-10-17 02:37:00 2018-10-29 10:57:00 Discharged Inpatient 1 ABHIJIT YODER [facility] [id number] [facility] 2018-06-20 18:21:00 2018-06-27 15:47:00 Discharged Inpatient [facility] [id number] [facility] 2018-06-11 09:00:00 2018-06-11 09:00:00 Appointment; NELSON NG M.D. MELTON, DANIELLE, M.D. [facility] [id number] [facility] 2018-05-04 01:45:00 2018-05-07 17:46:00 Discharged Inpatient 1 ADRIEL HADDAD [facility] [id number] [facility] 2018-02-12 12:00:00 2018-02-12 12:00:00 Appointment; NELSON NG M.D. MELTON, DANIELLE, M.D. [facility] UTP [id number] [facility] 2018-01-06 15:15:00 2018-01-06 15:15:00 Appointment; NELSON NG M.D. MELTON, DANIELLE, M.D. [facility] UTP [id number] [facility] 2017-12-11 11:30:00 2017-12-11 11:30:00 Appointment; NELSON NG M.D. MELTON, DANIELLE, M.D. [facility] UTP [id number] [facility] 2017-11-13 11:45:00 2017-11-13 11:45:00 Appointment; NELSON NG M.D. MELTON, DANIELLE, M.D. [facility] UTP [id number] [facility] 2017-08-29 05:19:00 2017-09-01 12:03:00 Discharged Inpatient 1 MARIELLE MARSH [facility] [id number] [facility] 2017-08-07 11:00:00 2017-08-07 11:00:00 Appointment; NELSON NG M.D. MELTON, DANIELLE, M.D. [facility] [id number] [facility] 2017-08-07 08:30:00 2017-08-07 08:30:00 Appointment; NELSON NG M.D. MELTON, DANIELLE, M.D. [facility] UTP [id number] [facility] 2017-06-02 13:15:00 2017-06-02 13:15:00 Appointment; NELSON NG M.D. MELTON, DANIELLE, M.D. [facility] UTP [id number] [facility] 2017-05-08 11:15:00 2017-05-08 11:15:00 Appointment; NELSON NG M.D. MELTON, DANIELLE, M.D. [facility] UTP [id number] [facility] 2017-02-25 10:00:00 2017-02-25 10:00:00 Appointment; NELSON NG M.D. MELTON, DANIELLE, M.D. [facility] UTP [id number] [facility] 2017-01-25 02:48:00 2017-01-30 17:07:00 Discharged Inpatient [place] [facility] [id number] [facility] 2017-01-07 14:15:00 2017-01-07 14:15:00 Appointment; NELSON NG M.D. MELTON, DANIELLE, M.D. [facility] UTP [id number] [facility] Results Test Description Test Time Test Comments Results Result Comments Source CHEST SINGLE (PORTABLE) 2019-12-12 01:03:00 [facility] CENTERName: MANJIT LUO : 1980 Sex: M [facility] [address] [address] Patient Name: MANJIT LUO MR #: [id number] : 1980 Age/Sex: 39/M Req #: [id number] Adm Physician: Ordered by: MARIELLE MARSH MD Report #: [id number] Location: ER Room/Bed: Procedure: [id number] DX/CHEST SINGLE (PORTABLE) Exam Date: Exam Time: REPORT STATUS: Signed EXAMINATION: CHEST SINGLE (PORTABLE) INDICATION: generalized weakness Y COMPARISON: 08/04/2019 FINDINGS: AP view TUBES and LINES: None. LUNGS: Low lung volumes. There is no evidence of pneumonia or pulmonary edema. PLEURA: No pleural effusion or pneumothorax. HEART AND MEDIASTINUM: The cardiomediastinal silhouette is unremarkable. BONES AND SOFT TISSUES: No acute osseous lesion. Soft tissues are unremarkable. UPPER ABDOMEN: No free air under the diaphragm. IMPRESSION: No acute thoracic abnormality. Signed by: Dr. Dona Wesley MD on 12/12/2019 1:07 AM Dictated By: DONA WESLEY MD 0107 Transcribed By: TIFFANY on 12/12/197 COPY TO: MARIELLE MARSH MD AFB culture 2019-09-26 12:13:10 Test Item AFB culture isolate (test code = 543-9) No growth after 6 we eks of incubation. Specimen InformationSpecimen Source: Specimen Site: [facility] MethodistFungus [id number] 12:15:05* Test Item Value Reference Range Interpretation Comments Fungus culture isolate (test code = 1441) No growth af ter 4 weeks of incubation. Specimen Information Specimen Source: Specimen Site: [facility] MethodistECG 12 [id number] 14:50:41* Test Item Value Reference Range Interpretation Comments Ventricular rate (test code = 253) 99 Atrial rate (test code = 255) 99 ID interval (test code = 266) 106 QRSD interval (test code = 260) 92 QT interval (test code = 264) 370 QTC interval (test code = 265) 474 P axis 1 (test code = 267) 26 QRS axis 1 (test code = 268) 1 T wave axis (test code = 270) 75 EKG impression (test code = 273) Sinus rhythm with lina rt ID-Cannot rule out Inferior infarct , age undetermined-Abnormal ECG-In automated comparison with ECG of 08-APR-2017 16:07,-ID interval has decreased-Questionable change in QRS axis-ST no longer elevated in Inferior leads-T wave amplitude has decreased in Inferior leads-Nonspecific T wave abnormality now evident in Lateral leads-QT has lengthened- [place] MethodistAnaerobic [id number] 12:59:54* Test Item Value Reference Range Interpretation Comments Anaerobic culture isolate (test code = 552) No anaerobic organis ms isolated. Specimen InformationSpecimen Source: Spe cimen Site: [facility] MethodistAFB [id number] 12:59:54* Test Item Value Reference Range Interpretation Comments AFB stain (test code = 676-7) No acid fast bacilli (AFB) seen. Specimen InformationSpecimen Source: Specimen Site: [facility] MethodistFungus [id number] 12:59:54* Test Item Value Reference Range Interpretation Comments Fungus smear (test code = 1443) No fungi observed. Specimen InformationSpecimen Source: Specimen Site: [place] [facility] [id number] 12:59:54Gram stain isolateMany WBC'sNo organisms seen Comment: Specimen InformationSpecimen Source: Specimen Site: [place] [facility] MethodistAerobic [id number] 12:59:54 Aerobic culture isolateNo growth after 3 days.No growth after 4 days. Comment: S pecimen InformationSpecimen Source: Specimen Site: [facility] MethodistBlood culture, aerobic & [id number] 08:03:04* Test Item Value Reference Range Interpretation Comments Blood culture isolate (test code = 600-7) No growth after 5 days of incubation. Specimen InformationSpecimen Source: BloodSpecimen Site: Unspecified [place] [facility] [id number] 07:25:34* Test Item Value Reference Range Interpretation Comments Urine culture isolate (test code = 13900-4) No growth after 24 hour s Specimen InformationSpecimen Source: UrineSpecimen Site: Catheterized [facility] [id number] 12:22:21* Test Item Value Reference Range Interpretation Comments POC glucose (test code = 77992-4) 145 mg/dL 65-99 H Manager Employee Benefits Name: Anandleticia Phelps Shoshana ID: [id number]: [facility] 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 Interpretation (test code = 80168-1) Abnormal [place] MethodistUrinalysis screen and microscopy, with reflex to culture 2019-08-18 22:55:10* Test Item Value Reference Range Interpretation Comments Specimen site (test code = 5163895) Catheterized Color, UA (test code = 5778-6) Straw Appearance, UA (test code = 5767-9) Hazy Specific gravity, UA (test code = 5811-5) 1.012 1.001-1.035 pH, UA (test code = 5803-2) 5.0 5.0-8.5 Protein, UA (test code = 68767-9) 1+ Negative A Glucose, UA (test code = 33004-6) 2+ Negative A Ketones, UA (test code = 2514-8) Negative Negative Bilirubin, UA (test code = 5770-3) Negative Negative Blood, UA (test code = 5794-3) Moderate Negative A Nitrite, UA (test code = 5802-4) Negative Negative Urobilinogen, UA (test code = 71611-1) <2.0 <2.0 Leukocyte esterase, UA (test code = 5799-2) Small Negative A WBC, UA (test code = 5821-4) 25 0- 1 /HPF H RBC, UA (test code = 34265-5) 4 0- 5 /HPF Bacteria, UA (test code = 38820-1) Few None seen Yeast, UA (test code = 27624-8) None seen Yeast with pseudohyphae, UA (test code = 19412-0) None seen Lab Interpretation (test code = 00450-9) Abnormal [place] MethodistCOVID-19 qualitative [id number] 12:12:15* Test Item Value Reference Range Interpretation Comments Interpretation (test code = 4758501) Negative results do not preclude 2019-nCoV infection and should not be used as the sole basis for treatment or other patient management decisions. Negative results must be combined with clinical observations, patient history, and epidemiological information. COVID-19 qualitative PCR result (test code = 63560-0) Not-Detect ed Not-Detected COVID-19 qualitative PCR (test code = 7070) See link below for P DF Lab Report [place] MethodistHepatitis B surface [id number] 08:10:47* Test Item Value Reference Range Interpretation Comments Hepatitis B surface Ag (test code = 5195-3) Non-reactive Non-reacti ve [place] MethodistBasic metabolic tkmts0434-67-97 10:17:32* Test Item Value Reference Range Interpretation Comments Sodium (test code = 2951-2) 139 135- 148 mEq/L Potassium (test code = 2823-3) 4.4 3.5- 5.0 mEq/L Chloride (test code = 2075-0) 101 98- 112 mEq/L CO2 (test code = 2027-9) 23 24- 31 mEq/L L Anion gap (test code = 66637-1) 15@ANIO 7- 15 mEq/L BUN (test code = 3094-0) 36 mg/dL 6-20 H Creatinine (test code = 2160-0) 5.25 mg/dL 0.7-1.2 H Glucose (test code = 2345-7) 146 mg/dL 65-99 H Calcium (test code = 24943-4) 8.2 mg/dL 8.3-10.2 L Lab Interpretation (test code = 41047-1) Abnormal [place] MethodistEstimated [id number] 10:17:32* Test Item Value Reference Range Interpretation Comments Estimated GFR (test code = 5488) 13 mL/min/1.73 m2 A Catergory Units InterpretationG1 >=90 Normal or highG2 60-89 Mildly drwmfcadwY1u 45-59 Mildly to moderately shkvfpeqtL3h 30-44 Moderately to severely decreasedG4 15-29 Severely decreasedG5 <15 Kidney failureThe eGFR was calculated using the Chronic Kidney Disease Epidemiology Collaboration (CKD-EPI) equation. Interpretation is based on recommendations of the National Kidney Foundation-Kidney Disease Outcomes Quality Initiative (NKF-KDOQI) published in 2014. Lab Interpretation (test code = 73288-5) Abnormal [place] MethodistHemoglobin [id number] 09:05:15* Test Item Value Reference Range Interpretation Comments Hemoglobin A1C (test code = 20980-4) 6.5 % 4-5.6 H HbA1c cutoffs for diagnosing diabetes:4.0% - 5.6% = normal5.7% - 6.4% = increased risk for diabetes (prediabetes)9>=6.5% = opvxxnqi7Lqnze for glycemic control (ADA 2016)< 7.0% Target for non adults with diabetes. More or less stringent targets may be appropriate for individual patients. <7.5% Target for Children and adolescents with type 1 diabetes. Lab Interpretation (test code = 72962-3) Abnormal [place] MethodistCBC with platelet and yxndvxbxdpho7371-66-25 07:41:09* Test Item Value Reference Range Interpretation Comments WBC (test code = 40865-5) 3.73 4.50- 11.00 k/uL L RBC (test code = 57025-7) 4.16 m/uL 4.4-6 L HGB (test code = 718-7) 10.1 g/dL 14-18 L HCT (test code = 4544-3) 34.5 % 41-51 L MCV (test code = 787-2) 82.9 fL 82-100 MCH (test code = 785-6) 24.3 pg 27-34 L MCHC (test code = 786-4) 29.3 g/dL 31-37 L RDW - SD (test code = 68216-7) 42.0 fL 37-55 MPV (test code = 47637-8) 8.5 fL 8.8-13.2 L Platelet count (test code = 80895-1) 190 150- 400 k/uL Nucleated RBC (test code = 25626-8) 0.00 /100 WBC Neutrophils (test code = 71547-2) 56.8 % 39-69 Lymphocytes (test code = 85528-5) 30.3 % 25-45 Monocytes (test code = 26702-4) 7.5 % 0-10 Eosinophils (test code = 50074-2) 3.5 % 0-5 Basophils (test code = 47245-1) 0.3 % 0-1 Immature granulocytes (test code = 75910-3) 1.6 % 0-1 H "Immature granulocytes" (promyelocytes, myelocytes, metamyelocytes) Lab Interpretation (test code = 72185-6) Abnormal [place] MethodistCell count and differential, body [id number] 21:07:29* Test Item Value Reference Range Interpretation Comments Misc fluid type (test code = 71682-0) Synovial Color, fluid (test code = 6824-7) Red Appearance, fluid (test code = 9335-1) Hazy RBC, fluid (test code = 05550-8) 45718 /CMM Nucleated cells, fluid (test code = 62351-7) 47822 /CMM Fluid mononuclear cell (test code = 1407) See Diff Neutrophils, fluid (test code = 21140-1) 89 % Lymphocytes, fluid (test code = 99724-7) 2 % Macrophages, fluid (test code = 00194-4) 9 % [place] MethodistCrystal buwxyuoi4239-02-87 19:50:35* Test Item Value Reference Range Interpretation Comments Crystal analysis specimen type (test code = 1160) Knee Right knee joint aspirate Monosodium urate (test code = 2870296) None seen None seen CPPD crystals (test code = 1135) None seen None seen [place] MethodistSedimentation naml2979-18-07 17:40:51* Test Item Value Reference Range Interpretation Comments Sedimentation rate (test code = 66758-5) 87 0- 10 mm/hr H Lab Interpretation (test code = 62018-5) Abnormal [place] MethodistC-reactive sfiegqf4821-14-86 17:13:47* Test Item Value Reference Range Interpretation Comments CRP (test code = 1987-) 5.40 mg/dL 0-0.5 H Lab Interpretation (test code = 79511-7) Abnormal [place] MethodistComprehensive metabolic [id number] 17:13:46* Test Item Value Reference Range Interpretation Comments Sodium (test code = 2951-2) 138 135- 148 mEq/L Potassium (test code = 2823-3) 4.2 3.5- 5.0 mEq/L Chloride (test code = 2074-0) 102 98- 112 mEq/L CO2 (test code = 2027-9) 24 24- 31 mEq/L Anion gap (test code = 78262-1) 12@ANIO 7- 15 mEq/L BUN (test code = 3094-0) 35 mg/dL 6-20 H Creatinine (test code = 2160-0) 5.44 mg/dL 0.7-1.2 H Glucose (test code = 2345-7) 233 mg/dL 65-99 H Calcium (test code = 63307-1) 8.1 mg/dL 8.3-10.2 L Protein (test code = 2885-2) 7.3 g/dL 6.3-8.3 -[place] 4.6- 7.0 g/dL1 week 4.4-7.6 g/dL7 months-1year 5.1-7.3 g/dL1-2 years 5.6-7.5 g/dL>3 years 6.0-8.0 g/xQ33-192 6.3-8.3 g/dL Albumin (test code = 1751-7) 1.9 g/dL 3.5-5 L A/G ratio (test code = 1759-0) 0.4 0.7-3.8 L Alkaline phosphatase (test code = 6768-6) 216 U/L 40-129 H AST (test code = 1920-8) 14 U/L 10-50 ALT (test code = 1742-6) 13 U/L 5-50 Total bilirubin (test code = 1975-2) <0.2 0-1.2 Lab Interpretation (test code = 54032-2) Abnormal [place] MethodistPartial thromboplastin time, ugqtqtnra1675-34-88 16:44:57* Test Item Value Reference Range Interpretation Comments PTT (test code = 14819-6) 35.3 23.0- 36.0 sec PTT therapeutic range for unfractionated heparin is61.0-112.0 seconds which corresponds to Anti-Xa0.3-0.7 U/ml. [place] MethodistProthrombin time with [id number] 16:41:55* Test Item Value Reference Range Interpretation Comments Prothrombin time (test code = 5902-2) 16.0 11.5- 14.5 sec H INR (test code = 00520-6) 1.3 Th e International Normalized Ratio (INR) is a therapeutic monitoring tool for patients who are stable on oral anticoagulant therapy. An INR of 2.0-3.0 is suggested for deep vein thrombosis/pulmonary embolism. Lab Interpretation (test code = 19958-3) Abnormal [place] MethodistXR Knee 4+ Vw Sfobt3676-62-52 14:44:09Hm Interface, Radiology Results - 08/14/2019 2:47 [...] patellar component appear intact . No loosening noted.[facility] MethodistCapillary blood glucose measurement by glucometer (mass/volume)2019-08-10 10:38:00* Test Item Value Reference Range Interpretation Comments Bedside Glucose (test code = 55845-2) 170 70-120 Meter ID: [id number] [facility] [id number] 16:27:00 [address] [address] Patient Name: MANJIT LUO MR #: [id number] : 1980 Age/Sex: 39/M Req #: [id number] Adm Physician: ABHIJIT YODER MD Ordered by: FAIZA DOWNEY Report #: [id number] Location: [facility]Bed: [facility] Procedure: DX/IR CONS ULT Exam Date: Exam [...] COPY TO: LORE DOWNEY REMOVAL TUNNEDLED CV [id number] 16:27:00 [address] [address] Patient Name: MANJIT LUO MR #: [id number] : 1980 Age/Sex: 39/M Req #: [id number] Adm Physician: ABHIJIT YODER MD Ordered by: FAIZA DOWNEY Report #: [id number] [facility] Procedure: IR/REMOVAL TUNNEDLED CV CATH Exam Date: [...] PM Dictated By: JOSE F FERRER MD 5594 Transcribed By: TIFFANY on 08/09/19 7539 COPY TO: FAIZA DOWNEY KNEE RIGHT THREE [id number] 14:06:00 [address] [address] Patient Name: MANJIT LUO MR #: [id number] : 1980 Age/Sex: 39/M Req #: [id number] Adm Physician: ABHIJIT YODER MD Ordered by: ABHIJIT YODER MD Report #: [id number] Location: MED/SURG3 Room/Bed: [facility] Procedure: [id number] DX/KNEE RIGHT TH REE VIEWS Exam Date: [...] PM Dictated By: JOSE F FERRER MD 08 Tra nscribed By: TIFFANY on 08/09/191408 COPY TO: ABHIJIT YODER MD Serum or plasma sodium measurement (moles/volume)2019-08-09 05:45:00* Test Item Value Reference Range Interpretation Comments Sodium Level (test code = 2951-2) 136 136-145 [facility] potassium measurement (moles/volume)2019-08-09 05:45:00* Test Item Value Reference Range Interpretation Comments Potassium Level (test code = 2823-3) 4.1 3.5-5.1 [facility] or plasma chloride measurement (moles/volume)2019-08-09 05:45:00* Test Item Value Reference Range Interpretation Comments Chloride Level (test code = 2075-0) 100 98-107 [facility] or plasma carbon dioxide, total measurement (moles/volume)2019-08-09 05:45:00* Test Item Value Reference Range Interpretation Comments Carbon Dioxide Level (test code = 2028-9) 25 22-29 [facility] or plasma anion [id number] 05:45:00* Test Item Value Reference Range Interpretation Comments Anion Gap (test code = 38873-3) 15.1 8-16 [facility] or plasma urea nitrogen measurement (mass/volume)2019-08-09 05:45:00* Test Item Value Reference Range Interpretation Comments Blood Urea Nitrogen (test code = 3094-0) 37 7-26 [facility] plasma creatinine measurement (mass/volume)2019-08-09 05:45:00* Test Item Value Reference Range Interpretation Comments Creatinine (test code = 2160-0) 6.05 0.72-1.25 [facility]um or plasma urea nitrogen/creatinine mass cmmwm8519-09-55 05:45:00* Test Item Value Reference Range Interpretation Comments BUN/Creatinine Ratio (test code = 3097-3) 6 6-25 [facility] CenterEstimated glomerular filtration rate (GFR) nxdwdkxmrvgdl7795-23-74 05:45:00* Test Item Value Reference Range Interpretation Comments Estimat Glomerular Filtration Rate (test code = 899059158) 10 >60 Ranges were taken from the National Kidney Disease Education Program and the [facility] literature.Reference ranges:60 or greater: Uzfpsh65-34 ( for 3 consecutive months): Chronic kidney disease 15 or less: Kidney failureMethodist Midlothian Medical CenterGlucose ctmutluwfyc1706-92-37 05:45:00* Test Item Value Reference Range Interpretation Comments Glucose Level (test code = RCA1038) 115 74-118 [facility] or plasma calcium measurement (mass/volume)2019-08-09 05:45:00* Test Item Value Reference Range Interpretation Comments Calcium Level (test code = 03120-9) 7.4 8.4-10.2 [facility] CenterPhosphorus odtjreovhdk9547-36-76 05:45:00 * Test Item Value Reference Range Interpretation Comments Phosphorus Level (test code = TWD5718) 5.2 2.3-4.7 [facility] or plasma albumin measurement (mass/volume)2019-08-09 05:45:00* Test Item Value Reference Range Interpretation Comments Albumin (test code = 1751-7) 1.7 3.5-5.0 [facility] or plasma intact pararthyroid hormone measurement (mass/volume)2019-08-09 05:45:00* Test Item Value Reference Range Interpretation Comments Parathyroid Hormone (test code = 2731-8) 198 15-65 [facility] or plasma calcium measurement (mass/volume)2019-08-09 05:45:00* Test Item Value Reference Range Interpretation Comments Calcium (Send out) (test code = 52764-6) 7.0 8.7-10.2 [facility] CenterFluoroscopic procedure less than one hour drpdoprg6848-51-11 05:45:00* Test Item Value Reference Range Interpretation Comments Parathyroid Hormone Interpretation (test code = Parathyroid Hormone Interpretation) Comment . Interpretation Intact PTH Calcium (pg/mL) (mg/dL)Normal 15 - 65 8.6 - 10.2Pr imary Hyperparathyroidism >65 >10.2Secondary Hyperparathyroidism >65 <10.2Non-Parathyroid Hypercalcemia <65 >10.2Hypoparathyroidism <15 < 8.6Non- Parathyroid Hypocalcemia 15 - 65 < 8.6Performed at: - [facility] [address] [id number] Director: Doc Bartlett MD, Phone: [phone] at: - [facility] [id number] Director: Raul Bolivar MD, Phone: [phone] Midlothian Medical CenterBacterial urine zokbzra1055-07-83 09:57:00* Test Item Value Reference Range Interpretation Comments Urine Culture (test code = 630-4) ENTEROCOCCUS FAECALIS [facility] CenterBlhennepin county medical center leukocytes automated count (number/volume)2019-08-08 05:30:00* Test Item Value Reference Range Interpretation Comments White Blood Count (test code = 6690-2) 4.79 4.8-10.8 [facility] CenterBlood erythrocytes automated count (number/volume)2019-08-08 05:30:00* Test Item Value Reference Range Interpretation Comments Red Blood Count (test code = 789-8) 3.83 4.3-5.7 [facility] CenterBlood hemoglobin measurement (moles/volume)2019-08-08 05:30:00* Test Item Value Reference Range Interpretation Comments Hemoglobin (test code = 93751-6) 9.8 14.0-18.0 [facility] CenterAutomated blood hematocrit (volume fraction)2019-08-08 05:30:00* Test Item Value Reference Range Interpretation Comments Hematocrit (test code = 4544-3) 30.8 38.2-49.6 [facility] CenterAutomated erythrocyte mean corpuscular fkhmtk5718-97-71 05:30:00* Test Item Value Reference Range Interpretation Comments Mean Corpuscular Volume (test code = 787-2) 80.4 81-99 [facility] CenterAutomated erythrocyte mean corpuscular hemoglobin (mass per erythrocyte)2019-08-08 05:30:00* Test Item Value Reference Range Interpretation Comments Mean Corpuscular Hemoglobin (test code = 785-6) 25.6 28-32 [facility] CenterAutomated erythrocyte mean corpuscular hemoglobin concentration measurement (mass/volume)2019-08-08 05:30:00* Test Item Value Reference Range Interpretation Comments Mean Corpuscular Hemoglobin Concent (test code = 786-4) 31.8 31-35 [facility] CenterRDW ZfkTr-Ytf0936-71-15 05:30:00* Test Item Value Reference Range Interpretation Comments Red Cell Distribution Width (test code = 96375-9) 15.1 11.7 -14.4 [facility] CenterAutomated blood platelet count (count/volume)2019-08-08 05:30:00* Test Item Value Reference Range Interpretation Comments Platelet Count (test code = 777-3) 143 140-360 [facility] CenterAutomated blood segmented neutrophil count as percentage of total sdubpgfgrj3487-42-49 05:30:00* Test Item Value Reference Range Interpretation Comments Neutrophils (%) (Auto) (test code = 23983-8) 58.9 38.7-80.0 [facility] CenterAutomated blood lymphocyte count as percentage ot total biqvdthmpj9551-70-14 05:30:00* Test Item Value Reference Range Interpretation Comments Lymphocytes (%) (Auto) (test code = 736-9) 25.5 18.0-39.1 [facility] CenterAutomated blood monocyte count as percentage of total noppkndgdg4329-46-15 05:30:00* Test Item Value Reference Range Interpretation Comments Monocytes (%) (Auto) (test code = 5905-5) 11.9 4.4-11.3 [facility] CenterAutomated blood eosinophil count as percentage of total jyfpgguwrs3590-96-26 05:30:00* Test Item Value Reference Range Interpretation Comments Eosinophils (%) (Auto) (test code = 713-8) 2.7 0.0-6.0 [facility] CenterAutomated blood basophil count as percentage of total ymewuyyuzs8070-46-57 05:30:00* Test Item Value Reference Range Interpretation Comments Basophils (%) (Auto) (test code = 706-2) 0.6 0.0-1.0 [facility] CenterFluoroscopic procedure less than one hour moxphhxt7129-46-93 05:30:00* Test Item Value Reference Range Interpretation Comments IM GRANULOCYTES % (test code = IM GRANULOCYTES %) 0.4 0.0- 1.0 [facility] CenterAutomated blood neutrophil count 2019-08-08 05:30:00* Test Item Value Reference Range Interpretation Comments Neutrophils # (Auto) (test code = 751-8) 2.8 2.1-6.9 [facility] CenterBlood lymphocytes count (number/volume) 2019-08-08 05:30:00* Test Item Value Reference Range Interpretation Comments Lymphocytes # (Auto) (test code = 82826-8) 1.2 1.0-3.2 [facility] CenterBlood monocytes automated count (number/volume)2019-08-08 05:30:00* Test Item Value Reference Range Interpretation Comments Monocytes # (Auto) (test code = 742-7) 0.6 0.2-0.8 [facility] CenterAutomated blood eosinophil count 2019-08-08 05:30:00* Test Item Value Reference Range Interpretation Comments Eosinophils # (Auto) (test code = 711-2) 0.1 0.0-0.4 [facility] CenterAutomated blood basophil count (count/volume)2019-08-08 05:30:00* Test Item Value Reference Range Interpretation Comments Basophils # (Auto) (test code = 704-7) 0.0 0.0-0.1 [facility] CenterFluoroscopic procedure less than one hour egynceaw8611-93-33 05:30:00* Test Item Value Reference Range Interpretation Comments Absolute Immature Granulocyte (auto (shin t code = Absolute Immature Granulocyte (auto) 0.02 0-0.1 [facility] CenterProthrombin time (PT) in platelet poor plasma by coagulation ookwp3963-76-76 09:05:00* Test Item Value Reference Range Interpretation Comments Prothrombin Time (test code = 5902-2) 15.8 11.9-14.5 [facility] CenterINR in Platelet poor plasma by Coagulation oubwj2890-21-35 09:05:00* Test Item Value Reference Range Interpretation Comments Prothromb Time International Ratio (test code = 6301-6) 1.18 Oral Anticoagulant Therapy INR Values:1. Low Intensity Therapy 1.5 - 2.02 . Moderate Intensity Therapy 2.0 - 3.03. High Intensity Therapy(1) 2.5 - 3. 54. High Intensity Therapy(2) 3.0 - 4.05. Panic Value INR > 5.0 [facility] CenterActivated partial thromboplastin time (aPTT) in platelet poor plasma by coagulation sjnyk8717-50-34 09:05:00* Test Item Value Reference Range Interpretation Comments Activated Partial Thromboplast Time (test code = 19633-8) 39.3 23.8-35.5 [facility] plasma total bilirubin measurement (mass/volume)2019-08-05 09:05:00* Test Item Value Reference Range Interpretation Comments Total Bilirubin (test code = 1975-2) 0.4 0.2-1.2 [facility] CenterFluoroscopic procedure less than one hour yfxpmlal8043-86-99 09:05:00* Test Item Value Reference Range Interpretation Comments Aspartate Amino Transf (AST/SGOT) (test code = Aspartate Amino Transf (AST/SGOT)) 18 5-34 [facility]lineerum or plasma alanine aminotransferase measurement (enzymatic activity/volume)2019-08-05 09:05:00* Test Item Value Reference Range Interpretation Comments Alanine Aminotransferase (ALT/SGPT) (test code = 1742-6) 14 0-55 [facility] or plasma protein measurement (mass/volume)2019-08-05 09:05:00* Test Item Value Reference Range Interpretation Comments Total Protein (test code = 2885-2) 6.7 6.5-8.1 [facility] CenterPlasma globulin measurement (mass/volume) 2019-08-05 09:05:00* Test Item Value Reference Range Interpretation Comments Globulin (test code = 25828-8) 4.5 2.3-3.5 [facility]um or plasma albumin/globulin mass lfsrh9336-72-63 09:05:00* Test Item Value Reference Range Interpretation Comments Albumin/Globulin Ratio (test code = 1759-0) 0.5 0.8-2.0 [facility] or plasma alkaline phosphatase measurement (enzymatic activity/volume)2019-08-05 09:05:00* Test Item Value Reference Range Interpretation Comments Alkaline Phosphatase (test code = 6768-6) 186 40-150 [facility]lineerum or plasma creatine kinase measurement (enzymatic activity/volume)2019-08-05 09:05:00* Test Item Value Reference Range Interpretation Comments Creatine Kinase (test code = 2157-6) 64 30-200 [facility]lineerum or plasma creatine kinase MB measurement (mass/volume)2019-08-05 09:05:00* Test Item Value Reference Range Interpretation Comments Creatine Kinase MB (test code = 59310-9) 1.20 0-5.0 [facility] CenterTroponin I measurement by highly sensitive enzyme cdknrkdfejv4421-58-62 09:05:00* Test Item Value Reference Range Interpretation Comments Troponin I (test code = 95311-3) 0.034 0-0.300 [facility] CenterBlood cdxvprv8354-54-98 23:15:00* Test Item Value Reference Range Interpretation Comments Blood Culture (test code = 86843554) NO GROWTH AFTER 5 DAYS, FINAL REPORT [facility] CenterCHEST SINGLE (PORTABLE)2019-08-04 23:03:00 [facility] [address] [place] [address] Patient Name: MANJIT LUO MR #: [id number] : 1980 Age/Sex: 39/M Req #: [id number] Adm Physician: Ordered by: MARIELLE MARSH MD Report #: [id number] Location: ER Room/Bed: Procedure: [id number] DX/NERISSA ST SINGLE (PORTABLE) Exam Date: 08/04/19 [...] 11:05 PM Dictated By: DONA WESLEY MD [id number] COPY TO: MARIELLE PERSON MD CT ABDOMEN/PELVIS NQ7530-74-44 22:15:00 [place] [address] Patient Name: MANJIT LUO MR #: [id number] : 1980 Age/Sex: 39/M Req #: [id number] Adm Physician: Ordered by: MARIELLE MARSH MD Report #: [id number] Location: ER Room/Bed: Procedure: [id number] CT/CT ABDOMEN/PELVIS WO Exam Date: 08/04/19 Exam [...] (test code = 5778-6) YELLOW YELLOW [facility] CenterUrine eteacmb8698-77-84 22:13:00* Test Item Value Reference Range Interpretation Comments Urine Clarity (test code = 42067-3) SL CLOUDY CLEAR [facility]linepecific gravity of Urine by Test strip 2019-08-04 22:13:00* Test Item Value Reference Range Interpretation Comments Urine Specific [place] (test code = 5811-5) 1.020 1.010-1.02 5 [facility] CenterUrine pH measurement by automated test vdywk6910-58-05 22:13:00* Test Item Value Reference Range Interpretation Comments Urine pH (test code = 38959-6) 5.5 5-7 [facility] CenterUrine leukocyte esterase detection by shkhpbsh0797-37-91 22:13:00* Test Item Value Reference Range Interpretation Comments Urine Leukocyte Esterase (test code = 5799-2) SMALL NEGATIVE [facility] CenterUrine nitrite vwasodapd0438-60-86 22:13:00* Test Item Value Reference Range Interpretation Comments Urine Nitrite (test code = 49429-7) NEGATIVE NEGATIVE [facility] CenterUrine protein measurement by test strip (mass/volume)2019-08-04 22:13:00* Test Item Value Reference Range Interpretation Comments Urine Protein (test code = 5804-0) >=300 NEGATIVE [facility] CenterUrine glucose ijtrbxzxe8671-09-85 22:13:00* Test Item Value Reference Range Interpretation Comments Urine Glucose (UA) (test code = 2349-9) 1+ NEGATIVE [facility] CenterUrine ketones detection by automated test diylm4815-32-47 22:13:00* Test Item Value Reference Range Interpretation Comments Urine Ketones (test code = 39422-7) NEGATIVE NEGATIVE [facility] CenterUrine urobilinogen measurement by test strip (mass/volume)2019-08-04 22:13:00* Test Item Value Reference Range Interpretation Comments Urine Urobilinogen (test code = 16778-3) 0.2 0.2-1 [facility] CenterUrine total bilirubin measurement (mass/volume)2019-08-04 22:13:00* Test Item Value Reference Range Interpretation Comments Urine Bilirubin (test code = 1978-6) NEGATIVE NEGATIVE [facility] CenterUrine erythrocytes rfqwbuxae4630-39-49 22:13:00* Test Item Value Reference Range Interpretation Comments Urine Blood (test code = 94864-7) MODERATE NEGATIVE [facility] CenterAutomated urine sediment leukocyte count by microscopy (number/high power field)2019-08-04 22:13:00* Test Item Value Reference Range Interpretation Comments Urine WBC (test code = 5821-4) >50 0-5 [facility] CenterErythrocytes detection in urine sediment by light wayfmhjzbx6966-82-76 22:13:00* Test Item Value Reference Range Interpretation Comments Urine RBC (test code = 64482-7) >50 0-5 [facility] CenterBacteria detection in urine sediment by light zztxdibrst2714-73-11 22:13:00* Test Item Value Reference Range Interpretation Comments Urine Bacteria (test code = 70729-3) MANY NONE [facility] CenterEpithelial cells detection in urine sediment by light etzwamhumt5423-28-48 22:13:00* Test Item Value Reference Range Interpretation Comments Urine Epithelial Cells (test code = 14701-5) MANY NONE [facility] CenterBacterial urine gqnhbxp2248-61-91 22:13:00* Test Item Value Reference Range Interpretation Comments Urine Culture (test code = 630-4) ENTEROCOCCUS FAECALIS [facility] CenterFluoroscopic procedure less than one hour ddsusihl6857-04-71 21:23:00* Test Item Value Reference Range Interpretation Comments Lactic Acid Level (test code = Lactic Acid Level) 1.8 0.5- 2.0 [facility] CenterFluoroscopic procedure less than one hour etnqwrts5755-96-92 00:10:00* Test Item Value Reference Range Interpretation [...] complexity tests.Testing performed by [facility] [address] [id number] Director: Alonzo Rhodes M.D.CLIA # [id number] Capillary blood glucose measurement by glucometer (mass/volume)2019-06-22 19:22:00* Test Item Value Reference Range Interpretation Comments Bedside Glucose (test code = 71605-4) 328 70-120 Meter ID: [id number] Spohn Hospital [facility]us Christi – Shorelineerum or plasma sodium measurement (moles/volume)2019-06-22 05:05:00* Test Item Value Reference Range Interpretation Comments Sodium Level (test code = 2951-2) 135 136-145 [facility] CenterVenous blood ionized calcium measurement (mass/volume)2019-06-22 05:05:00* Test Item Value Reference Range Interpretation Comments Ionized Calcium (test code = 19640-2) 1.1 1.09-1.30 [facility] or plasma potassium measurement (moles/volume)2019-06-22 05:05:00* Test Item Value Reference Range Interpretation Comments Potassium Level (test code = 2823-3) 4.5 3.5-5.1 [facility] or plasma chloride measurement (moles/volume)2019-06-22 05:05:00* Test Item Value Reference Range Interpretation Comments Chloride Level (test code = 2075-0) 100 98-107 [facility]lineerum or plasma carbon dioxide, total measurement (moles/volume)2019-06-22 05:05:00* Test Item Value Reference Range Interpretation Comments Carbon Dioxide Level (test code = 2028-9) 30 22-29 [facility]erum or plasma anion lmm7705-29-91 05:05:00* Test Item Value Reference Range Interpretation Comments Anion Gap (test code = 45172-6) 9.5 8-16 [facility] or plasma urea nitrogen measurement (mass/volume)2019-06-22 05:05:00* Test Item Value Reference Range Interpretation Comments Blood Urea Nitrogen (test code = 3094-0) 34 7-26 [facility] or plasma creatinine measurement (mass/volume)2019-06-22 05:05:00* Test Item Value Reference Range Interpretation Comments Creatinine (test code = 2160-0) 4.42 0.72-1.25 [facility] or plasma urea nitrogen/creatinine mass ynztn2400-24-50 05:05:00* Test Item Value Reference Range Interpretation Comments BUN/Creatinine Ratio (test code = 3097-3) 8 6-25 [facility] CenterEstimated glomerular filtration rate (GFR) nizxewasrgyar7712-82-52 05:05:00* Test Item Value Reference Range Interpretation Comments Estimat Glomerular Filtration Rate (test code = 999319191) 15 >60 Ranges were taken from the National Kidney Disease Education Program and the [facility] Kidney Foundation literature.Reference ranges:60 or greater: Mmajga72-44 ( for 3 consecutive months): Chronic kidney disease 15 or less: Kidney failureMethodist Midlothian Medical CenterGlucose knbhihwvmje8258-75-25 05:05:00* Test Item Value Reference Range Interpretation Comments Glucose Level (test code = YSN4109) 271 74-118 [facility] or plasma calcium measurement (mass/volume)2019-06-22 05:05:00* Test Item Value Reference Range Interpretation Comments Calcium Level (test code = 84246-5) 7.7 8.4-10.2 [facility] or plasma albumin measurement (mass/volume)2019-06-22 05:05:00* Test Item Value Reference Range Interpretation Comments Albumin (test code = 1751-7) 1.6 3.5-5.0 [facility] CenterVenous blood ionized calcium measurement (mass/volume)2019-06-22 05:05:00* Test Item Value Reference Range Interpretation Comments Ionized Calcium (test code = 81661-1) 1.1 1.09-1.30 [facility] CenterBlood leukocytes automated count (number/volume)2019-06-20 05:10:00* Test Item Value Reference Range Interpretation Comments White Blood Count (test code = 6690-2) 3.29 4.8-10.8 [facility] CenterBlood erythrocytes automated count (number/volume)2019-06-20 05:10:00* Test Item Value Reference Range Interpretation Comments Red Blood Count (test code = 789-8) 3.57 4.3-5.7 [facility] CenterBlood hemoglobin measurement (moles/volume)2019-06-20 05:10:00* Test Item Value Reference Range Interpretation Comments Hemoglobin (test code = 60316-6) 9.0 14.0-18.0 [facility] CenterAutomated blood hematocrit (volume fraction)2019-06-20 05:10:00* Test Item Value Reference Range Interpretation Comments Hematocrit (test code = 4544-3) 29.1 38.2-49.6 [facility] CenterAutomated erythrocyte mean corpuscular hjrvcy7963-29-76 05:10:00* Test Item Value Reference Range Interpretation Comments Mean Corpuscular Volume (test code = 787-2) 81.5 81-99 [facility] CenterAutomated erythrocyte mean corpuscular hemoglobin (mass per erythrocyte)2019-06-20 05:10:00* Test Item Value Reference Range Interpretation Comments Mean Corpuscular Hemoglobin (test code = 785-6) 25.2 28-32 [facility] CenterAutomated erythrocyte mean corpuscular hemoglobin concentration measurement (mass/volume)2019-06-20 05:10:00* Test Item Value Reference Range Interpretation Comments Mean Corpuscular Hemoglobin Concent (test code = 786-4) 30.9 31-35 [facility] CenterRDW BzjBj-Jrp2731-57-27 05:10:00* Test Item Value Reference Range Interpretation Comments Red Cell Distribution Width (test code = 20657-5) 14.9 11.7 -14.4 [facility] CenterAutomated blood platelet count (count/volume)2019-06-20 05:10:00* Test Item Value Reference Range Interpretation Comments Platelet Count (test code = 777-3) 133 140-360 [facility] CenterAutomated blood segmented neutrophil count as percentage of total ddqzkqzkgc0099-87-79 05:10:00* Test Item Value Reference Range Interpretation Comments Neutrophils (%) (Auto) (test code = 14216-1) 48.9 38.7-80.0 [facility] blood lymphocyte count as percentage ot total mwnbbulwmg3148-58-24 05:10:00* Test Item Value Reference Range Interpretation Comments Lymphocytes (%) (Auto) (test code = 736-9) 31.0 18.0-39.1 [facility] CenterAutomated blood monocyte count as percentage of total nzvesbeqxz3830-15-22 05:10:00* Test Item Value Reference Range Interpretation Comments Monocytes (%) (Auto) (test code = 5905-5) 11.9 4.4-11.3 [facility] CenterAutcape fear/harnett healthed blood eosinophil count as percentage of total zykdnrnpke4071-64-81 05:10:00* Test Item Value Reference Range Interpretation Comments Eosinophils (%) (Auto) (test code = 713-8) 7.3 0.0-6.0 [facility] CenterAutomated blood basophil count as percentage of total aurrqpthby9594-69-53 05:10:00* Test Item Value Reference Range Interpretation Comments Basophils (%) (Auto) (test code = 706-2) 0.3 0.0-1.0 [facility] CenterFluoroscopic procedure less than one hour uymwfbpi1525-90-64 05:10:00* Test Item Value Reference Range Interpretation Comments IM GRANULOCYTES % (test code = IM GRANULOCYTES %) 0.6 0.0- 1.0 [facility] CenterAutomated blood neutrophil count 2019-06-20 05:10:00* Test Item Value Reference Range Interpretation Comments Neutrophils # (Auto) (test code = 751-8) 1.6 2.1-6.9 [facility] CenterBlood lymphocytes count (number/volume) 2019-06-20 05:10:00* Test Item Value Reference Range Interpretation Comments Lymphocytes # (Auto) (test code = 33694-2) 1.0 1.0-3.2 [facility] CenterBlood monocytes automated count (number/volume)2019-06-20 05:10:00* Test Item Value Reference Range Interpretation Comments Monocytes # (Auto) (test code = 742-7) 0.4 0.2-0.8 [facility] CenterAutomated blood eosinophil count 2019-06-20 05:10:00* Test Item Value Reference Range Interpretation Comments Eosinophils # (Auto) (test code = 711-2) 0.2 0.0-0.4 [facility] CenterAutomated blood basophil count (count/volume)2019-06-20 05:10:00* Test Item Value Reference Range Interpretation Comments Basophils # (Auto) (test code = 704-7) 0.0 0.0-0.1 [facility] CenterFluoroscopic procedure less than one hour lrinsytn9012-30-37 05:10:00* Test Item Value Reference Range Interpretation Comments Absolute Immature Granulocyte (auto (shin t code = Absolute Immature Granulocyte (auto) 0.02 0-0.1 [facility] CenterCHEST 2 UBLVG0314-42-22 10:46:00 [facility] [address] [place] [address] Patient Name: MANJIT LUO MR #: [id number] : 1980 Age/Sex: 38/M Req #: [id number] Adm Physician: ABHIJIT YODER MD Ordered by: CASTRO JALLOH MD Report #: [id number] Location: MED/SURG Room/Bed: [facility] Procedure: [id number] DX/CH EST 2 VIEWS Exam Date: Exam [...] 047 COPY TO: CASTRO JALLOH MD Blood pnnjuxt6641-62-37 09:50:00* Test Item Value Reference Range Interpretation Comments Blood Culture (test code = 12371416) NO GROWTH AFTER 5 DAYS, FINAL REPORT [facility] or plasma intact pararthyroid hormone measurement (mass/volume)2019-06-15 05:20:00* Test Item Value Reference Range Interpretation Comments Parathyroid Hormone (Intact) (test code = 2731-8) 313 15-6 5 Performed at: [address] [id number] Director: Doc Bartlett MD, Phone: [phone] [facility] Shorelineerum or plasma intact pararthyroid hormone measurement (mass/volume) 2019-06-15 05:20:00* Test Item Value Reference Range Interpretation Comments Parathyroid Hormone (Intact) (test code = 2731-8) 313 15-6 5 Performed at: [facility] [address] [place], [place] [id number] Director: Doc Bartlett MD, Phone: [phone] [facility] – Shorelineerum or plasma magnesium measurement (mass/volume)2019-06-13 17:37:00* Test Item Value Reference Range Interpretation Comments Magnesium Level (test code = 16687-6) 1.5 1.3-2.1 [facility] or plasma magnesium measurement (mass/volume)2019-06-13 17:37:00* Test Item Value Reference Range Interpretation Comments Magnesium Level (test code = 18883-0) 1.5 1.3-2.1 [facility] SINGLE (PORTABLE)2019-06-13 17:09:00 [facility] [address] [place] [address] Patient Name: MANJIT LUO MR #: [id number] : 1980 Age/Sex: 38/M Req #: [id number] Adm Physician: ABHIJIT YODER MD Ordered by: CASTRO JALLOH MD Report #: [id number] Location: MED/SURG Room/Bed: [facility] Procedure: [id number] DX/CH EST SINGLE (PORTABLE) Exam Date: 06/13/19 [...] (test code = 1975-2) 0.3 0.2-1.2 [facility] CenterFluoroscopic procedure less than one hour zagtsmwk9815-13-56 05:30:00* Test Item Value Reference Range Interpretation Comments Aspartate Amino Transf (AST/SGOT) (test code = Aspartate Amino Transf (AST/SGOT)) 38 5-34 [facility] or plasma alanine aminotransferase measurement (enzymatic activity/volume)2019-06-13 05:30:00* Test Item Value Reference Range Interpretation Comments Alanine Aminotransferase (ALT/SGPT) (test code = 1742-6) 22 0-55 [facility] or plasma protein measurement (mass/volume)2019-06-13 05:30:00* Test Item Value Reference Range Interpretation Comments Total Protein (test code = 2885-2) 7.6 6.5-8.1 [facility] CenterPlasma globulin measurement (mass/volume) 2019-06-13 05:30:00* Test Item Value Reference Range Interpretation Comments Globulin (test code = 41088-1) 5.1 2.3-3.5 [facility] or plasma albumin/globulin mass jkjri9416-55-87 05:30:00* Test Item Value Reference Range Interpretation Comments Albumin/Globulin Ratio (test code = 1759-0) 0.5 0.8-2.0 [facility] or plasma alkaline phosphatase measurement (enzymatic activity/volume)2019-06-13 05:30:00* Test Item Value Reference Range Interpretation Comments Alkaline Phosphatase (test code = 6768-6) 332 40-150 [facility] CenterUrine color ujlgriopkgrlm7817-66-54 12:24:00* Test Item Value Reference Range Interpretation Comments Urine Color (test code = 5778-6) YELLOW YELLOW [facility] CenterUrine rrlpyhr5885-58-46 12:24:00* Test Item Value Reference Range Interpretation Comments Urine Clarity (test code = 89877-0) TURBID CLEAR [facility]linepecific gravity of Urine by Test strip 2019-06-12 12:24:00* Test Item Value Reference Range Interpretation Comments Urine Specific [place] (test code = 5811-5) 1.020 1.010-1.02 5 [facility] CenterUrine pH measurement by automated test ztbda6320-30-36 12:24:00* Test Item Value Reference Range Interpretation Comments Urine pH (test code = 80415-2) 6 5-7 [facility] CenterUrine leukocyte esterase detection by ixuasfqj7879-48-83 12:24:00* Test Item Value Reference Range Interpretation Comments Urine Leukocyte Esterase (test code = 5799-2) 1+ NEGATIVE [facility] CenterUrine nitrite xqrrpfbqt3301-89-50 12:24:00* Test Item Value Reference Range Interpretation Comments Urine Nitrite (test code = 30843-3) NEGATIVE NEGATIVE [facility] CenterUrine protein measurement by test strip (mass/volume)2019-06-12 12:24:00* Test Item Value Reference Range Interpretation Comments Urine Protein (test code = 5804-0) >=300 NEGATIVE [facility] CenterUrine glucose ddjaqeikd2084-93-71 12:24:00* Test Item Value Reference Range Interpretation Comments Urine Glucose (UA) (test code = 2349-9) NEGATIVE NEGATIVE [facility] CenterUrine ketones detection by automated test kbkfr2322-77-34 12:24:00* Test Item Value Reference Range Interpretation Comments Urine Ketones (test code = 15762-2) TRACE NEGATIVE [facility] CenterUrine urobilinogen measurement by test strip (mass/volume)2019-06-12 12:24:00* Test Item Value Reference Range Interpretation Comments Urine Urobilinogen (test code = 89353-6) 0.2 0.2-1 [facility] CenterUrine total bilirubin measurement (mass/volume)2019-06-12 12:24:00* Test Item Value Reference Range Interpretation Comments Urine Bilirubin (test code = 1978-6) NEGATIVE NEGATIVE [facility] CenterUrine erythrocytes vmkghzmyp8648-03-71 12:24:00* Test Item Value Reference Range Interpretation Comments Urine Blood (test code = 65989-6) 3+ NEGATIVE [facility] CenterAutomated urine sediment leukocyte count by microscopy (number/high power field)2019-06-12 12:24:00* Test Item Value Reference Range Interpretation Comments Urine WBC (test code = 5821-4) 21-50 0-5 [facility] CenterErythrocytes detection in urine sediment by light grvxlfynbe7285-15-60 12:24:00* Test Item Value Reference Range Interpretation Comments Urine RBC (test code = 36298-1) 11-20 0-5 [facility] CenterBacteria detection in urine sediment by light pnyxxrkjqh5624-87-28 12:24:00* Test Item Value Reference Range Interpretation Comments Urine Bacteria (test code = 17954-8) MANY NONE [facility] CenterEpithelial cells detection in urine sediment by light wigugvrmxf8593-22-29 12:24:00* Test Item Value Reference Range Interpretation Comments Urine Epithelial Cells (test code = 36807-1) RARE NONE [facility] CenterMucus detection in urine sediment by light yacnetgesz3873-61-42 12:24:00* Test Item Value Reference Range Interpretation Comments Urine Mucus (test code = 8247-9) FEW RARE [facility] CenterMucus detection in urine sediment by light mumkulsypj9562-29-12 12:24:00* Test Item Value Reference Range Interpretation Comments Urine Mucus (test code = 8247-9) FEW RARE [facility] CenterBNP Xfu-xHfr3810-90-19 12:15:00* Test Item Value Reference Range Interpretation Comments B-Type Natriuretic Peptide (test code = 54631-5) 218.9 0-100 [facility] or plasma creatine kinase measurement (enzymatic activity/volume)2019-06-12 12:15:00* Test Item Value Reference Range Interpretation Comments Creatine Kinase (test code = 2157-6) 65 30-200 [facility] or plasma creatine kinase MB measurement (mass/volume)2019-06-12 12:15:00* Test Item Value Reference Range Interpretation Comments Creatine Kinase MB (test code = 35841-8) 3.90 0-5.0 [facility] CenterTroponin I measurement by highly sensitive enzyme rqcqfdjyvxe1176-10-76 12:15:00* Test Item Value Reference Range Interpretation Comments Troponin I (test code = 71420-7) 0.053 0-0.300 [facility] or plasma lipase measurement (enzymatic activity/volume)2019-06-12 12:15:00* Test Item Value Reference Range Interpretation Comments Lipase (test code = 3040-3) 14 8-78 [facility]lineerum or plasma ethanol measurement (mass/volume)2019-06-12 12:15:00* Test Item Value Reference Range Interpretation Comments Ethyl Alcohol Level (test code = 5643-2) < 10.0 0.0-10.0 [facility] CenterBNP Owb-cMtw7075-88-19 12:15:00* Test Item Value Reference Range Interpretation Comments B-Type Natriuretic Peptide (test code = 27227-9) 218.9 0-100 [facility] or plasma lipase measurement (enzymatic activity/volume)2019-06-12 12:15:00* Test Item Value Reference Range Interpretation Comments Lipase (test code = 3040-3) 14 8-78 [facility]erum or plasma ethanol measurement (mass/volume)2019-06-12 12:15:00* Test Item Value Reference Range Interpretation Comments Ethyl Alcohol Level (test code = 5643-2) < 10.0 0.0-10.0 [facility] CenterCHEST SINGLE (PORTABLE)2019-06-12 12:12:00 [facility] [address] [place] [address] Patient Name: MANJIT LUO MR #: [id number] : 1980 Age/Sex: 38/M Req #: [id number] Adm Physician: Ordered by: JONATHAN YODER DO Report #: [id number] Location: ER Room/Bed: Procedure: [id number] DX/ CHEST SINGLE (PORTABLE) Exam Date: 06/12/19 [...] 1215 COPY TO: JONATHAN YODER DO Urine NJQ0726-29-61 06:13:00* Test Item Value Reference Range Interpretation Comments Urine WBC (test code = 5821-4) >50 0-5 H [facility] CenterUrine TPU9061-97-91 06:13:00* Test Item Value Reference Range Interpretation Comments Urine RBC (test code = 43077-1) 11-20 0-5 H [facility] CenterUrine Ldeyqsuy7299-68-79 06:13:00* Test Item Value Reference Range Interpretation Comments Urine Bacteria (test code = 41060-6) FEW NONE [facility] CenterUrine Epithelial Bhhzs0989-94-71 06:13:00 * Test Item Value Reference Range Interpretation Comments Urine Epithelial Cells (test code = 42925-4) FEW NONE [facility] CenterUrine Ubgnl9251-98-36 05:56:00* Test Item Value Reference Range Interpretation Comments Urine Color (test code = 5778-6) YELLOW YELLOW [facility] CenterUrine Isysekg6963-18-76 05:56:00* Test Item Value Reference Range Interpretation Comments Urine Clarity (test code = 78554-7) CLOUDY CLEAR H [facility] CenterUrine Specific Iwpqvuo0632-66-79 05:56:00 * Test Item Value Reference Range Interpretation Comments Urine Specific [place] (test code = 5811-5) 1.025 1.010-1.02 5 [facility] CenterUrine xT7570-32-33 05:56:00* Test Item Value Reference Range Interpretation Comments Urine pH (test code = 40282-4) 7 5-7 [facility] CenterUrine Leukocyte Wwkuajnq0410-47-78 05:56:00* Test Item Value Reference Range Interpretation Comments Urine Leukocyte Esterase (test code = 5799-2) MODERATE NEGATIVE [facility] CenterUrine Osafwov9055-27-32 05:56:00* Test Item Value Reference Range Interpretation Comments Urine Nitrite (test code = 05506-5) NEGATIVE NEGATIVE [facility] CenterUrine Mggighl4021-59-39 05:56:00* Test Item Value Reference Range Interpretation Comments Urine Protein (test code = 5804-0) >=300 NEGATIVE [facility] CenterUrine Glucose (UA)2019-06-09 05:56:00* Test Item Value Reference Range Interpretation Comments Urine Glucose (UA) (test code = 2349-9) NEGATIVE NEGATIVE [facility] CenterUrine Tibqbow0889-72-36 05:56:00* Test Item Value Reference Range Interpretation Comments Urine Ketones (test code = 14478-8) NEGATIVE NEGATIVE [facility] CenterUrine Eyyijggbhyoe9818-58-33 05:56:00* Test Item Value Reference Range Interpretation Comments Urine Urobilinogen (test code = 91076-6) 0.2 0.2-1 [facility] CenterUrine Xgurjllpm6725-82-12 05:56:00* Test Item Value Reference Range Interpretation Comments Urine Bilirubin (test code = 1978-6) NEGATIVE NEGATIVE [facility] CenterUrine Gsqjz2123-44-06 05:56:00* Test Item Value Reference Range Interpretation Comments Urine Blood (test code = 43355-6) 2+ NEGATIVE [facility] CenterAmylase Mfdym6200-19-10 05:47:00* Test Item Value Reference Range Interpretation Comments Amylase Level (test code = 1798-8) 41 25-125 [facility] CenterLipase2020-04-16 05:47:00* Test Item Value Reference Range Interpretation Comments Lipase (test code = 3040-3) 15 8-78 [facility]lineodium Rdkhr7869-11-64 05:37:00* Test Item Value Reference Range Interpretation Comments Sodium Level (test code = 2951-2) 135 136-145 L [facility] CenterPotassium Ldwum6945-30-30 05:37:00* Test Item Value Reference Range Interpretation Comments Potassium Level (test code = 2823-3) 5.0 3.5-5.1 [facility] CenterChloride Yuacj3353-38-19 05:37:00* Test Item Value Reference Range Interpretation Comments Chloride Level (test code = 2075-0) 107 98-107 [facility] CenterCarbon Dioxide Bvkxe3524-69-62 05:37:00* Test Item Value Reference Range Interpretation Comments Carbon Dioxide Level (test code = 2028-9) 20 22-29 L [facility] CenterAnion Khw2204-47-68 05:37:00* Test Item Value Reference Range Interpretation Comments Anion Gap (test code = 71154-7) 13.0 8-16 [facility] CenterBlood Urea Eskeeyqb2242-13-74 05:37:00* Test Item Value Reference Range Interpretation Comments Blood Urea Nitrogen (test code = 3094-0) 55 7-26 H [facility] CenterCreatinine2020-04-16 05:37:00* Test Item Value Reference Range Interpretation Comments Creatinine (test code = 2160-0) 5.13 0.72-1.25 H [facility] CenterBUN/Creatinine Fzlfz1827-23-96 05:37:00* Test Item Value Reference Range Interpretation Comments BUN/Creatinine Ratio (test code = 3097-3) 11 6-25 [facility] CenterEstimat Glomerular Filtration Rate 2019-06-09 05:37:00* Test Item Value Reference Range Interpretation Comments Estimat Glomerular Filtration Rate (test code = 821259351) 13 >60 L Ranges were taken from the National Kidney Disease Education Program and the [facility] Kidney Foundation literature.Reference ranges:60 or greater: Yryiyc27-95 ( for 3 consecutive months): Chronic kidney disease 15 or less: Kidney failureMethodist Midlothian Medical CenterGlucose Wpwca4823-94-55 05:37:00* Test Item Value Reference Range Interpretation Comments Glucose Level (test code = MSD3801) 148 74-118 H [facility] CenterCalcium Kohhr4093-49-97 05:37:00* Test Item Value Reference Range Interpretation Comments Calcium Level (test code = 06865-8) 7.6 8.4-10.2 L [facility] CenterTotal Bumybbxot4031-71-31 05:37:00* Test Item Value Reference Range Interpretation Comments Total Bilirubin (test code = 1975-2) 0.2 0.2-1.2 [facility] CenterAspartate Amino Transf (AST/SGOT) 2019-06-09 05:37:00* Test Item Value Reference Range Interpretation Comments Aspartate Amino Transf (AST/SGOT) (test code = Aspartate Amino Transf (AST/SGOT)) 18 5-34 [facility] CenterAlanine Aminotransferase (ALT/SGPT) 2019-06-09 05:37:00* Test Item Value Reference Range Interpretation Comments Alanine Aminotransferase (ALT/SGPT) (test code = 1742-6) 17 0-55 [facility] CenterTotal Iiajeps1521-95-04 05:37:00* Test Item Value Reference Range Interpretation Comments Total Protein (test code = 2885-2) 8.0 6.5-8.1 [facility] CenterAlbumin2020-04-16 05:37:00* Test Item Value Reference Range Interpretation Comments Albumin (test code = 1751-7) 2.7 3.5-5.0 L [facility] CenterGlobulin2020-04-16 05:37:00* Test Item Value Reference Range Interpretation Comments Globulin (test code = 96564-0) 5.3 2.3-3.5 H [facility] CenterAlbumin/Globulin Mtayp5411-09-50 05:37:00 * Test Item Value Reference Range Interpretation Comments Albumin/Globulin Ratio (test code = 1759-0) 0.5 0.8-2.0 L [facility] CenterAlkaline Fhslhrqptlf2141-93-36 05:37:00* Test Item Value Reference Range Interpretation Comments Alkaline Phosphatase (test code = 6768-6) 279 40-150 H [facility] CenterABDOMEN-1VIEW (KUB)2019-06-09 05:32:00 [place] [address] Patient Name: MANJIT LUO MR #: [id number] : 1980 Age/Sex: 38/M Req #: [id number] Adm Physician: Ordered by: MARIELLE MARSH MD Report #: [id number] Location: ER Room/Bed: Procedure: [id number] DX/ABDOMEN-1VIEW [...] ROBERTSON DO 36 Transcribed By: TIFFANY on 06/09/19535 COPY TO: MARIELLE MARSH MD Bacterial urine mkxqoaq6860-54-38 05:25:00* Test Item Value Reference Range Interpretation Comments Urine Culture (test code = 630-4) SUMIT PARAPSILOSIS [facility] CenterWhite Blood Jefge5323-60-34 05:08:00* Test Item Value Reference Range Interpretation Comments White Blood Count (test code = 6690-2) 6.14 4.8-10.8 [facility] CenterRed Blood Jjfkh8646-45-14 05:08:00* Test Item Value Reference Range Interpretation Comments Red Blood Count (test code = 789-8) 3.63 4.3-5.7 L [facility] CenterHemoglobin2020-04-16 05:08:00* Test Item Value Reference Range Interpretation Comments Hemoglobin (test code = 55108-6) 9.3 14.0-18.0 L [facility] CenterHematocrit2020-04-16 05:08:00* Test Item Value Reference Range Interpretation Comments Hematocrit (test code = 4544-3) 29.7 38.2-49.6 L [facility] CenterMean Corpuscular Tdywem4976-36-81 05:08:00* Test Item Value Reference Range Interpretation Comments Mean Corpuscular Volume (test code = 787-2) 81.8 81-99 [facility] CenterMean Corpuscular Kfhhgwdjce5511-76-42 05:08:00* Test Item Value Reference Range Interpretation Comments Mean Corpuscular Hemoglobin (test code = 785-6) 25.6 28-32 L [facility] CenterMean Corpuscular Hemoglobin Concent 2019-06-09 05:08:00* Test Item Value Reference Range Interpretation Comments Mean Corpuscular Hemoglobin Concent (test code = 786-4) 31.3 31-35 [facility] CenterRed Cell Distribution Viyum8698-04-88 05:08:00* Test Item Value Reference Range Interpretation Comments Red Cell Distribution Width (test code = 88941-7) 15.0 11.7 -14.4 H [facility] CenterPlatelet Lhtlt8568-76-62 05:08:00* Test Item Value Reference Range Interpretation Comments Platelet Count (test code = 777-3) 141 140-360 [facility] CenterNeutrophils (%) (Auto)2019-06-09 05:08:00 * Test Item Value Reference Range Interpretation Comments Neutrophils (%) (Auto) (test code = 69125-9) 68.2 38.7-80.0 [facility] CenterLymphocytes (%) (Auto)2019-06-09 05:08:00 * Test Item Value Reference Range Interpretation Comments Lymphocytes (%) (Auto) (test code = 736-9) 18.7 18.0-39.1 [facility] CenterMonocytes (%) (Auto)2019-06-09 05:08:00* Test Item Value Reference Range Interpretation Comments Monocytes (%) (Auto) (test code = 5905-5) 6.2 4.4-11.3 [facility] CenterEosinophils (%) (Auto)2019-06-09 05:08:00 * Test Item Value Reference Range Interpretation Comments Eosinophils (%) (Auto) (test code = 713-8) 4.1 0.0-6.0 [facility] CenterBasophils (%) (Auto)2019-06-09 05:08:00* Test Item Value Reference Range Interpretation Comments Basophils (%) (Auto) (test code = 706-2) 0.7 0.0-1.0 [facility] CenterIM GRANULOCYTES %2019-06-09 05:08:00* Test Item Value Reference Range Interpretation Comments IM GRANULOCYTES % (test code = IM GRANULOCYTES %) 2.1 0.0- 1.0 H [facility] CenterNeutrophils # (Auto)2019-06-09 05:08:00* Test Item Value Reference Range Interpretation Comments Neutrophils # (Auto) (test code = 751-8) 4.2 2.1-6.9 [facility] CenterLymphocytes # (Auto)2019-06-09 05:08:00* Test Item Value Reference Range Interpretation Comments Lymphocytes # (Auto) (test code = 63048-8) 1.2 1.0-3.2 [facility] CenterMonocytes # (Auto)2019-06-09 05:08:00* Test Item Value Reference Range Interpretation Comments Monocytes # (Auto) (test code = 742-7) 0.4 0.2-0.8 [facility] CenterEosinophils # (Auto)2019-06-09 05:08:00* Test Item Value Reference Range Interpretation Comments Eosinophils # (Auto) (test code = 711-2) 0.3 0.0-0.4 [facility] CenterBasophils # (Auto)2019-06-09 05:08:00* Test Item Value Reference Range Interpretation Comments Basophils # (Auto) (test code = 704-7) 0.0 0.0-0.1 [facility] CenterAbsolute Immature Granulocyte (auto 2019-06-09 05:08:00* Test Item Value Reference Range Interpretation Comments Absolute Immature Granulocyte (auto (shin t code = Absolute Immature Granulocyte (auto) 0.13 0-0.1 H [facility]erum or plasma amylase measurement (enzymatic activity/volume)2019-06-09 04:50:00* Test Item Value Reference Range Interpretation Comments Amylase Level (test code = 1798-8) 41 25-125 [facility]lineerum or plasma amylase measurement (enzymatic activity/volume)2019-06-09 04:50:00* Test Item Value Reference Range Interpretation Comments Amylase Level (test code = 1798-8) 41 25-125 [facility] CenterBlood Jjavexa9401-56-32 01:59:00* Test Item Value Reference Range Interpretation Comments Blood Culture (test code = 79414770) NO GROWTH AFTER 5 DAYS, FINAL REPORT [facility] Vqphhcs5081-93-94 16:41:00* Test Item Value Reference Range Interpretation Comments Bedside Glucose (test code = 15990-8) 71 70-120 Meter ID: [id number] Scott & [facility] [place] Glucose 2019-06-03 16:41:00* Test Item Value Reference Range Interpretation Comments Bedside Glucose (test code = 71663-5) 71 70-120 Meter ID: [id number] [facility]lothian Medical CenterUrine Culture 2019-06-03 10:15:00* Test Item Value Reference Range Interpretation Comments Urine Culture (test code = 630-4) No Result Data Provided [facility] CenterUrine Ftxdlfx7211-83-13 10:15:00* Test Item Value Reference Range Interpretation Comments Urine Culture (test code = 630-4) No Result Data Provided [facility] CenterIR HTBLFDL3954-43-11 15:49:00 [place] [address] Patient Name: MANJIT LUO MR #: [id number] : 1980 Age/Sex: 38/M Req #: [id number] Adm Physician: ABHIJIT YODER MD Ordered by: FAIZA DOWNEY Report #: [id number] Location: MED/SURG3 Room/Bed: 288-1 Procedure: [id number] DX/IR CONSULT Exam Date: Exam Time: REPORT [...] 30. Primary Ope rator: Gen Anthony MD. Fish Frog Or Oyster Farmer: None. Approach: Left internal jugular vein Estimated [...] the needle into the IVC. A 6 Sudanese peel-away sheath was placed. A subcutaneous tunnel was created in the left anterior chest wall by blunt dissection. A 6 Sudanese dual-lumen tunneled central line was brought [...] TO: FAIZA DOWNEY TUNNELLED CVC INSERT W/O VPDG5989-70-69 15:49:00 [place] [address] Patient Name: MANJIT LUO MR #: [id number] : 1980 Age/Sex: 38/M Req #: [id number] [facility] Physician: ABHIJIT YODER MD Ordered by: ABHIJIT YODER MD Report #: [id number] [facility] Procedure: [id number] IR/TU NNELLED CVC INSERT W/O PORT Exam Date: Exam Time: REPORT STATUS: Signed Procedures: 1. Tunneled central line placement 2. Tunneled dialysis catheter removal. History: Need for long-term IV antibiotics. Modality: Sonography and fluoroscopy. Sedation: fentanyl 50 mcg was given intravenously for conscious sedation. Vital signs were monitored throughout the procedure by a nurse, and remained stable. Physician intra-service time was 30. Crisis Manager: Gen Anthony MD. Fish Frog Or Oyster Farmer: None. Approach: Left internal jugular vein Estimated [...] the needle into the IVC. A 6 Sudanese peel-away sheath was placed. A subcutaneous tunnel was created in the left anterior chest wall by blunt dissection. A 6 Sudanese dual- lumen tunneled central line was [...] on 06/02/191551 COPY TO: ABHIJIT YODER MD GUIDANCE FOR VASCULAR NKGFT4875-50-66 15:49:00 [place] [address] Patient Name: MANJIT LUO MR #: [id number] : 1980 Age/Sex: 38/M Req #: [id number] Adm Physician: ABHIJIT YODER MD Ordered by: FAIZA DOWNEY Report #: [id number] Location: MED/SURG3 Room/Bed: [facility] Procedure: [id number] US/US GUIDANCE FOR VASCULAR ACCES Exam Date: [...] remained stable. Physician intra-service time was 30. Crisis Manager: Gen Anthony MD. Fish Frog Or Oyster Farmer: None. Approach: Left internal jug ular vein [...] the needle into the IVC. A 6 Sudanese peel-away sheath was placed. A subcutaneous tunnel was created in the left anterior chest wall by blunt dissection. A 6 Sudanese dual- lumen tunneled central line was [...] 3:52 PM Dictated By: GEN Swan MD 752 Transcribed By : TIFFANY on 06/02/19 144 COPY TO: FAIZA DOWNEY Prothrombin Czgh9792-64-12 12:37:00* Test Item Value Reference Range Interpretation Comments Prothrombin Time (test code = 5902-2) 15.4 11.9-14.5 H [facility] CenterProthromb Time International Ratio 2019-06-02 12:37:00* Test Item Value Reference Range Interpretation Comments Prothromb Time International Ratio (test code = 6301-6) 1.15 Oral Anticoagulant Therapy INR Values:1. Low Intensity Therapy 1.5 - 2.02 . Moderate Intensity Therapy 2.0 - 3.03. High Intensity Therapy(1) 2.5 - 3. 54. High Intensity Therapy(2) 3.0 - 4.05. Panic Value INR > 5.0 [facility] CenterProthrombin Zgjc3483-91-98 12:37:00* Test Item Value Reference Range Interpretation Comments Prothrombin Time (test code = 5902-2) 15.4 11.9-14.5 H [facility] CenterProthromb Time International Ratio 2019-06-02 12:37:00* Test Item Value Reference Range Interpretation Comments Prothromb Time International Ratio (test code = 6301-6) 1.15 Oral Anticoagulant Therapy INR Values:1. Low Intensity Therapy 1.5 - 2.02 . Moderate Intensity Therapy 2.0 - 3.03. High Intensity Therapy(1) 2.5 - 3. 54. High Intensity Therapy(2) 3.0 - 4.05. Panic Value INR > 5.0 [facility] CenterProthrombin time (PT) in platelet poor plasma by coagulation gkrlt3159-18-42 12:20:00* Test Item Value Reference Range Interpretation Comments Prothrombin Time (test code = 5902-2) 15.4 11.9-14.5 [facility] CenterINR in Platelet poor plasma by Coagulation rdfod2850-33-27 12:20:00* Test Item Value Reference Range Interpretation Comments Prothromb Time International Ratio (test code = 6301-6) 1.15 Oral Anticoagulant Therapy INR Values:1. Low Intensity Therapy 1.5 - 2.02 . Moderate Intensity Therapy 2.0 - 3.03. High Intensity Therapy(1) 2.5 - 3. 54. High Intensity Therapy(2) 3.0 - 4.05. Panic Value INR > 5.0 [facility] CenterHepatitis B Surface Vrsqzlr6699-06-52 08:56:00* Test Item Value Reference Range Interpretation Comments Hepatitis B Surface Antigen (test code = 5196-1) Negative Negat stuart Performed at: [address] [id number] Director: Doc Bartlett MD, Phone: [phone] Midlothian Medical CenterHepatitis B Surface Ecbsoch0968-76-17 08:56:00* Test Item Value Reference Range Interpretation Comments Hepatitis B Surface Antigen (test code = 5196-1) Negative Negat stuart Performed at: [address] [id number] Director: Doc Bartlett MD, Phone: [phone] Midlothian Medical CenterBlood Xyvbcmx8070-22-27 01:59:00* Test Item Value Reference Range Interpretation Comments Blood Culture (test code = 74272156) NO GROWTH AFTER 72 HOURS [facility] or plasma hepatitis B virus surface antigen detection by zmtdybrwtyt6869-14-12 14:15:00* Test Item Value Reference Range Interpretation Comments Hepatitis B Surface Antigen (test code = 5196-1) Negative Negat stuart Performed at: [address] [id number] Director: Doc Bartlett MD, Phone: [phone] Spohn [facility] – Shorelineerum or plasma hepatitis B virus surface antigen detection by immunoassay 2019-06-01 14:15:00* Test Item Value Reference Range Interpretation Comments Hepatitis B Surface Antigen (test code = 5196-1) Negative Negat stuart Performed at: [address] [id number] Director: Doc Bartlett MD, Phone: [phone] Spohn [facility] – Shorelineodium Atqgx7813-99-68 07:00:00* Test Item Value Reference Range Interpretation Comments Sodium Level (test code = 2951-2) 136 136-145 [facility] CenterPotassium Jmkfq2381-16-72 07:00:00* Test Item Value Reference Range Interpretation Comments Potassium Level (test code = 2823-3) 5.2 3.5-5.1 H [facility] CenterChloride Wflsb7435-22-79 07:00:00* Test Item Value Reference Range Interpretation Comments Chloride Level (test code = 2075-0) 109 98-107 H [facility] CenterCarbon Dioxide Cckvj2125-21-76 07:00:00* Test Item Value Reference Range Interpretation Comments Carbon Dioxide Level (test code = 2028-9) 20 22-29 L [facility] CenterAnion Gip6239-79-38 07:00:00* Test Item Value Reference Range Interpretation Comments Anion Gap (test code = 25577-6) 12.2 8-16 [facility] CenterBlood Urea Tncveeeo3007-57-52 07:00:00* Test Item Value Reference Range Interpretation Comments Blood Urea Nitrogen (test code = 3094-0) 59 7-26 H [facility] CenterCreatinine2020-04-08 07:00:00* Test Item Value Reference Range Interpretation Comments Creatinine (test code = 2160-0) 5.91 0.72-1.25 H [facility] CenterBUN/Creatinine Agnts4945-80-99 07:00:00* Test Item Value Reference Range Interpretation Comments BUN/Creatinine Ratio (test code = 3097-3) 10 6-25 [facility] CenterEstimat Glomerular Filtration Rate 2019-06-01 07:00:00* Test Item Value Reference Range Interpretation Comments Estimat Glomerular Filtration Rate (test code = 957126343) 11 >60 L Ranges were taken from the National Kidney Disease Education Program and the [facility] literature.Reference ranges:60 or greater: Fuzpyn30-51 ( for 3 consecutive months): Chronic kidney disease 15 or less: Kidney failureMethodist Midlothian Medical CenterGlucose Jzjes1345-73-48 07:00:00* Test Item Value Reference Range Interpretation Comments Glucose Level (test code = IPS4493) 130 74-118 H [facility] CenterCalcium Mtfcm2022-10-55 07:00:00* Test Item Value Reference Range Interpretation Comments Calcium Level (test code = 75677-7) 7.2 8.4-10.2 L [facility] CenterPhosphorus Pjuli3213-99-12 07:00:00* Test Item Value Reference Range Interpretation Comments Phosphorus Level (test code = LXU5149) 5.1 2.3-4.7 H [facility] CenterMagnesium Unobg7341-87-56 07:00:00* Test Item Value Reference Range Interpretation Comments Magnesium Level (test code = 90407-0) 1.7 1.3-2.1 [facility] CenterPhosphorus Gnmic0436-51-88 07:00:00* Test Item Value Reference Range Interpretation Comments Phosphorus Level (test code = OPG3041) 5.1 2.3-4.7 H [facility] CenterMagnesium Etzhj3597-88-16 07:00:00* Test Item Value Reference Range Interpretation Comments Magnesium Level (test code = 42714-0) 1.7 1.3-2.1 [facility] CenterWhite Blood Gwhfy6439-01-97 06:30:00* Test Item Value Reference Range Interpretation Comments White Blood Count (test code = 6690-2) 3.49 4.8-10.8 L [facility] CenterRed Blood Zsbvp3992-41-04 06:30:00* Test Item Value Reference Range Interpretation Comments Red Blood Count (test code = 789-8) 3.62 4.3-5.7 L [facility] CenterHemoglobin2020-04-08 06:30:00* Test Item Value Reference Range Interpretation Comments Hemoglobin (test code = 91576-8) 9.3 14.0-18.0 L [facility] CenterHematocrit2020-04-08 06:30:00* Test Item Value Reference Range Interpretation Comments Hematocrit (test code = 4544-3) 29.9 38.2-49.6 L [facility] CenterMean Corpuscular Mrldxc5217-29-70 06:30:00* Test Item Value Reference Range Interpretation Comments Mean Corpuscular Volume (test code = 787-2) 82.6 81-99 [facility] CenterMean Corpuscular Ahsnepwezf1264-27-53 06:30:00* Test Item Value Reference Range Interpretation Comments Mean Corpuscular Hemoglobin (test code = 785-6) 25.7 28-32 L [facility] CenterMean Corpuscular Hemoglobin Concent 2019-06-01 06:30:00* Test Item Value Reference Range Interpretation Comments Mean Corpuscular Hemoglobin Concent (test code = 786-4) 31.1 31-35 [facility] CenterRed Cell Distribution Gsijl4565-66-06 06:30:00* Test Item Value Reference Range Interpretation Comments Red Cell Distribution Width (test code = 41225-5) 15.4 11.7 -14.4 H [facility] CenterPlatelet Tulpw8012-72-27 06:30:00* Test Item Value Reference Range Interpretation Comments Platelet Count (test code = 777-3) 118 140-360 L [facility] CenterNeutrophils (%) (Auto)2019-06-01 06:30:00 * Test Item Value Reference Range Interpretation Comments Neutrophils (%) (Auto) (test code = 93890-8) 70.7 38.7-80.0 [facility] CenterLymphocytes (%) (Auto)2019-06-01 06:30:00 * Test Item Value Reference Range Interpretation Comments Lymphocytes (%) (Auto) (test code = 736-9) 14.6 18.0-39.1 L [facility] CenterMonocytes (%) (Auto)2019-06-01 06:30:00* Test Item Value Reference Range Interpretation Comments Monocytes (%) (Auto) (test code = 5905-5) 8.9 4.4-11.3 [facility] CenterEosinophils (%) (Auto)2019-06-01 06:30:00 * Test Item Value Reference Range Interpretation Comments Eosinophils (%) (Auto) (test code = 713-8) 4.0 0.0-6.0 [facility] CenterBasophils (%) (Auto)2019-06-01 06:30:00* Test Item Value Reference Range Interpretation Comments Basophils (%) (Auto) (test code = 706-2) 0.9 0.0-1.0 [facility] CenterIM GRANULOCYTES %2019-06-01 06:30:00* Test Item Value Reference Range Interpretation Comments IM GRANULOCYTES % (test code = IM GRANULOCYTES %) 0.9 0.0- 1.0 [facility] CenterNeutrophils # (Auto)2019-06-01 06:30:00* Test Item Value Reference Range Interpretation Comments Neutrophils # (Auto) (test code = 751-8) 2.5 2.1-6.9 [facility] CenterLymphocytes # (Auto)2019-06-01 06:30:00* Test Item Value Reference Range Interpretation Comments Lymphocytes # (Auto) (test code = 79972-5) 0.5 1.0-3.2 L [facility] CenterMonocytes # (Auto)2019-06-01 06:30:00* Test Item Value Reference Range Interpretation Comments Monocytes # (Auto) (test code = 742-7) 0.3 0.2-0.8 [facility] CenterEosinophils # (Auto)2019-06-01 06:30:00* Test Item Value Reference Range Interpretation Comments Eosinophils # (Auto) (test code = 711-2) 0.1 0.0-0.4 [facility] CenterBasophils # (Auto)2019-06-01 06:30:00* Test Item Value Reference Range Interpretation Comments Basophils # (Auto) (test code = 704-7) 0.0 0.0-0.1 [facility] CenterAbsolute Immature Granulocyte (auto 2019-06-01 06:30:00* Test Item Value Reference Range Interpretation Comments Absolute Immature Granulocyte (auto (shin t code = Absolute Immature Granulocyte (auto) 0.03 0-0.1 [facility] CenterPhosphorus yyqreytozbp0878-64-08 06:00:00 * Test Item Value Reference Range Interpretation Comments Phosphorus Level (test code = XPT8410) 5.1 2.3-4.7 [facility] CenterTotal Fmwgreyiz0964-48-84 07:19:00* Test Item Value Reference Range Interpretation Comments Total Bilirubin (test code = 1975-2) 0.5 0.2-1.2 [facility] CenterAspartate Amino Transf (AST/SGOT) 2019-05-31 07:19:00* Test Item Value Reference Range Interpretation Comments Aspartate Amino Transf (AST/SGOT) (test code = Aspartate Amino Transf (AST/SGOT)) 182 5-34 H [facility] CenterAlanine Aminotransferase (ALT/SGPT) 2019-05-31 07:19:00* Test Item Value Reference Range Interpretation Comments Alanine Aminotransferase (ALT/SGPT) (test code = 1742-6) 121 0-55 H [facility] CenterTotal Ngdykjx2314-71-37 07:19:00* Test Item Value Reference Range Interpretation Comments Total Protein (test code = 2885-2) 7.2 6.5-8.1 [facility] CenterAlbumin2020-04-07 07:19:00* Test Item Value Reference Range Interpretation Comments Albumin (test code = 1751-7) 2.3 3.5-5.0 L [facility] CenterGlobulin2020-04-07 07:19:00* Test Item Value Reference Range Interpretation Comments Globulin (test code = 03011-1) 4.9 2.3-3.5 H [facility] CenterAlbumin/Globulin Yrenw8896-11-01 07:19:00 * Test Item Value Reference Range Interpretation Comments Albumin/Globulin Ratio (test code = 1759-0) 0.5 0.8-2.0 L [facility] CenterAlkaline Lazxmnbwizz5399-60-53 07:19:00* Test Item Value Reference Range Interpretation Comments Alkaline Phosphatase (test code = 6768-6) 412 40-150 H [facility] CenterUrine YEG5642-74-01 02:21:00* Test Item Value Reference Range Interpretation Comments Urine WBC (test code = 5821-4) >50 0-5 H [facility] CenterUrine RSQ7082-82-11 02:21:00* Test Item Value Reference Range Interpretation Comments Urine RBC (test code = 47403-5) 21-50 0-5 H [facility] CenterUrine Ixppofty8489-25-66 02:21:00* Test Item Value Reference Range Interpretation Comments Urine Bacteria (test code = 22423-5) MANY NONE [facility] Epithelial Yabck4673-13-61 02:21:00 * Test Item Value Reference Range Interpretation Comments Urine Epithelial Cells (test code = 96046-5) FEW NONE [facility] Cxxgq3824-05-78 02:21:00* Test Item Value Reference Range Interpretation Comments Urine Mucus (test code = 8247-9) FEW RARE [facility] Elbkv2209-56-24 02:21:00* Test Item Value Reference Range Interpretation Comments Urine Yeast (test code = 25255-8) MANY NONE [facility] Kzgud6987-91-37 02:21:00* Test Item Value Reference Range Interpretation Comments Urine Mucus (test code = 8247-9) FEW RARE [facility] Ccvmk1983-20-60 02:21:00* Test Item Value Reference Range Interpretation Comments Urine Yeast (test code = 60427-3) MANY NONE [facility] CenterU[facility] Ttsmo1799-62-85 02:12:00* Test Item Value Reference Range Interpretation Comments Urine Color (test code = 5778-6) YELLOW YELLOW [facility] CenterUrine Sykppbn5975-67-82 02:12:00* Test Item Value Reference Range Interpretation Comments Urine Clarity (test code = 66199-7) CLOUDY CLEAR [facility] CenterUrine Specific Jjxxeqz7218-66-13 02:12:00 * Test Item Value Reference Range Interpretation Comments Urine Specific [place] (test code = 5811-5) 1.025 1.010-1.02 5 [facility] CenterUrine iC8570-92-36 02:12:00* Test Item Value Reference Range Interpretation Comments Urine pH (test code = 20371-8) 5.5 5-7 [facility] CenterUrine Leukocyte Dqhbdhuw6598-81-34 02:12:00* Test Item Value Reference Range Interpretation Comments Urine Leukocyte Esterase (test code = 5799-2) 2+ NEGATIVE [facility] CenterU[facility] Tqsibnn0906-25-21 02:12:00* Test Item Value Reference Range Interpretation Comments Urine Nitrite (test code = 46280-9) POSITIVE NEGATIVE H [facility] CenterUrine Ezwekzc3561-85-38 02:12:00* Test Item Value Reference Range Interpretation Comments Urine Protein (test code = 5804-0) >=300 NEGATIVE [facility] CenterUrine Glucose (UA)2019-05-30 02:12:00* Test Item Value Reference Range Interpretation Comments Urine Glucose (UA) (test code = 2349-9) 1+ NEGATIVE H [facility] CenterUrine Waxvazi2453-86-87 02:12:00* Test Item Value Reference Range Interpretation Comments Urine Ketones (test code = 34579-4) NEGATIVE NEGATIVE [facility] CenterUrine Kqojnvhnotvg9210-94-24 02:12:00* Test Item Value Reference Range Interpretation Comments Urine Urobilinogen (test code = 95197-2) 0.2 0.2-1 [facility] CenterUrine Sedqqmkmw3933-17-66 02:12:00* Test Item Value Reference Range Interpretation Comments Urine Bilirubin (test code = 1978-6) NEGATIVE NEGATIVE [facility] CenterUrine Ectra8796-66-34 02:12:00* Test Item Value Reference Range Interpretation Comments Urine Blood (test code = 09764-2) 4+ NEGATIVE H [facility] CenterYeast detection in urine sediment by light vnakxexxos1396-94-87 01:50:00* Test Item Value Reference Range Interpretation Comments Urine Yeast (test code = 31907-2) MANY NONE [facility] CenterYeast detection in urine sediment by light mraknntttv5602-73-52 01:50:00* Test Item Value Reference Range Interpretation Comments Urine Yeast (test code = 92878-8) MANY NONE [facility] CenterCHEST SINGLE (PORTABLE)2019-05-30 01:18:00 [place] [address] Patient Name: MANJIT LUO MR #: [id number] : 1980 Age/Sex: 38/M Req #: [id number] Adm Physician: Ordered by: MARIELLE MARSH MD Report #: [id number] Location: ER Room/Bed: Procedure: 0406- 0007 DX/CHEST SINGLE (PORTABLE) Exam Date: 05/30/19 Exam Time: 49 REPORT STATUS: Sign ed EXAMINATION: CHEST SINGLE (PORTABLE) COMPARISON: Chest x-ray 04/23 INDICATION: fever [id number] Y DISCUSSION: Frontal view of the [...] COPY TO: BAYRON MARSH MD Lactic Acid Mxesw9727-52-23 01:08:00* Test Item Value Reference Range Interpretation Comments Lactic Acid Level (test code = Lactic Acid Level) 1.0 0.5- 2.0 [facility] CenterLactic Acid Lvpcc9581-33-53 01:08:00* Test Item Value Reference Range Interpretation Comments Lactic Acid Level (test code = Lactic Acid Level) 1.0 0.5- 2.0 [facility] CenterCT ABDOMEN/PELVIS YY8726-86-20 01:06:00 [place] [address] Patient Name: MANJIT LUO MR #: [id number] : 1980 Age/Sex: 38/M Req #: [id number] Adm Physician: Ordered by: MARIELLE MARSH MD Report #: [id number] Location: ER Room/Bed: Procedure: 0406- 0001 CT/CT [...] set by the Radiation Protocol Com mittee ([facility]). COMPARISON: Abdomen x-ray 05/20/2019. CT [...] MD Fluoroscopic procedure less than one hour uukowqiw0935-71-06 00:23:00* Test Item Value Reference Range Interpretation Comments Lactic Acid Level (test code = Lactic Acid Level) 1.0 0.5- 2.0 [facility] CenterC1Q class 1 & 2 lpyjyzmh3730-51-28 15:06:51* Test Item Value Reference Range Interpretation Comments Case number (test code = 9242519) [id number] C1Q class 1 & 2 antibody (test code = 8267872) See emilee mckeon below for PDF Lab Report [place] [facility] Fcycmch1387-49-78 16:03:00* Test Item Value Reference Range Interpretation Comments Bedside Glucose (test code = 96270-4) 129 70-120 H Meter ID: [id number] [address] ([place]) 2019-05-20 11:54:00 [facility] [address] [place] [address] Patient Name: MANJIT LUO MR #: [id number] : 1980 Age/Sex: 38/M Req #: [id number] Adm Physician: ABHIJIT YODER MD Ordered by: ABHIJIT YODER MD Report #: [id number] Location: MED/SURG2 Room/Bed: [facility] Procedure: [id number] DX/AB [address] ([facility]) Exam Date: 05/20/19 Exam Time: 105 9 [...] 11:57 AM Dictated By: KIM MENDEZ MD 1157 Transcribe d By: TIFFANY on 05/20/19 1157 COPY TO: ABHIJIT YODER MD Sodium Niovm9590-41-28 05:37:00* Test Item Value Reference Range Interpretation Comments Sodium Level (test code = 2951-2) 137 136-145 [facility] CenterPotassium Agvci8066-27-49 05:37:00* Test Item Value Reference Range Interpretation Comments Potassium Level (test code = 2823-3) 4.7 3.5-5.1 [facility] CenterChloride Qiehi6559-04-96 05:37:00* Test Item Value Reference Range Interpretation Comments Chloride Level (test code = 2075-0) 103 98-107 [facility] CenterCarbon Dioxide Soqba4139-28-50 05:37:00* Test Item Value Reference Range Interpretation Comments Carbon Dioxide Level (test code = 2028-9) 27 22-29 [facility] CenterAnion Grr3671-20-94 05:37:00* Test Item Value Reference Range Interpretation Comments Anion Gap (test code = 42103-1) 11.7 8-16 [facility] CenterBlood Urea Ozoqfipt8018-11-30 05:37:00* Test Item Value Reference Range Interpretation Comments Blood Urea Nitrogen (test code = 3094-0) 23 7-26 [facility] CenterCreatinine2020-03-26 05:37:00* Test Item Value Reference Range Interpretation Comments Creatinine (test code = 2160-0) 3.50 0.72-1.25 H [facility] CenterBUN/Creatinine Dzyia3373-18-00 05:37:00* Test Item Value Reference Range Interpretation Comments BUN/Creatinine Ratio (test code = 3097-3) 7 6- [facility] CenterEstimat Glomerular Filtration Rate 2019-05-19 05:37:00* Test Item Value Reference Range Interpretation Comments Estimat Glomerular Filtration Rate (test code = 916401253) 20 >60 L Ranges were taken from the National Kidney Disease Education Program and the [facility] Kidney Foundation literature.Reference ranges:60 or greater: Aqjfap62-28 ( for 3 consecutive months): Chronic kidney disease 15 or less: Kidney failureMethodist Midlothian Medical CenterGlucose Osxes2402-05-55 05:37:00* Test Item Value Reference Range Interpretation Comments Glucose Level (test code = YKA4091) 130 74-118 H [facility] CenterCalcium Udjpq6070-81-86 05:37:00* Test Item Value Reference Range Interpretation Comments Calcium Level (test code = 94506-7) 8.2 8.4-10.2 L [facility] CenterWhite Blood Ucjph9828-54-76 09:35:00* Test Item Value Reference Range Interpretation Comments White Blood Count (test code = 6690-2) 4.21 4.8-10.8 L [facility] CenterRed Blood Zuldy0161-08-83 09:35:00* Test Item Value Reference Range Interpretation Comments Red Blood Count (test code = 789-8) 3.61 4.3-5.7 L [facility] CenterHemoglobin2020-03-25 09:35:00* Test Item Value Reference Range Interpretation Comments Hemoglobin (test code = 54296-0) 9.3 14.0-18.0 L [facility] CenterHematocrit2020-03-25 09:35:00* Test Item Value Reference Range Interpretation Comments Hematocrit (test code = 4544-3) 30.1 38.2-49.6 L [facility] CenterMean Corpuscular Artabx7096-43-64 09:35:00* Test Item Value Reference Range Interpretation Comments Mean Corpuscular Volume (test code = 787-2) 83.4 81-99 [facility] CenterMean Corpuscular Ezpygkhuxh2712-40-44 09:35:00* Test Item Value Reference Range Interpretation Comments Mean Corpuscular Hemoglobin (test code = 785-6) 25.8 28-32 L [facility] CenterMean Corpuscular Hemoglobin Concent 2019-05-18 09:35:00* Test Item Value Reference Range Interpretation Comments Mean Corpuscular Hemoglobin Concent (test code = 786-4) 30.9 31-35 L [facility] CenterRed Cell Distribution Scmbd0492-89-03 09:35:00* Test Item Value Reference Range Interpretation Comments Red Cell Distribution Width (test code = 01657-7) 14.6 11.7 -14.4 H [facility] CenterPlatelet Lwfxw4167-14-58 09:35:00* Test Item Value Reference Range Interpretation Comments Platelet Count (test code = 777-3) 133 140-360 L [facility] CenterNeutrophils (%) (Auto)2019-05-18 09:35:00 * Test Item Value Reference Range Interpretation Comments Neutrophils (%) (Auto) (test code = 13051-1) 59.3 38.7-80.0 [facility] CenterLymphocytes (%) (Auto)2019-05-18 09:35:00 * Test Item Value Reference Range Interpretation Comments Lymphocytes (%) (Auto) (test code = 736-9) 29.5 18.0-39.1 [facility] CenterMonocytes (%) (Auto)2019-05-18 09:35:00* Test Item Value Reference Range Interpretation Comments Monocytes (%) (Auto) (test code = 5905-5) 5.7 4.4-11.3 [facility] CenterEosinophils (%) (Auto)2019-05-18 09:35:00 * Test Item Value Reference Range Interpretation Comments Eosinophils (%) (Auto) (test code = 713-8) 4.5 0.0-6.0 [facility] CenterBasophils (%) (Auto)2019-05-18 09:35:00* Test Item Value Reference Range Interpretation Comments Basophils (%) (Auto) (test code = 706-2) 0.5 0.0-1.0 [facility] CenterIM GRANULOCYTES %2019-05-18 09:35:00* Test Item Value Reference Range Interpretation Comments IM GRANULOCYTES % (test code = IM GRANULOCYTES %) 0.5 0.0- 1.0 [facility] CenterNeutrophils # (Auto)2019-05-18 09:35:00* Test Item Value Reference Range Interpretation Comments Neutrophils # (Auto) (test code = 751-8) 2.5 2.1-6.9 [facility] CenterLymphocytes # (Auto)2019-05-18 09:35:00* Test Item Value Reference Range Interpretation Comments Lymphocytes # (Auto) (test code = 78931-2) 1.2 1.0-3.2 [facility] CenterMonocytes # (Auto)2019-05-18 09:35:00* Test Item Value Reference Range Interpretation Comments Monocytes # (Auto) (test code = 742-7) 0.2 0.2-0.8 [facility] CenterEosinophils # (Auto)2019-05-18 09:35:00* Test Item Value Reference Range Interpretation Comments Eosinophils # (Auto) (test code = 711-2) 0.2 0.0-0.4 [facility] CenterBasophils # (Auto)2019-05-18 09:35:00* Test Item Value Reference Range Interpretation Comments Basophils # (Auto) (test code = 704-7) 0.0 0.0-0.1 [facility] CenterAbsolute Immature Granulocyte (auto 2019-05-18 09:35:00* Test Item Value Reference Range Interpretation Comments Absolute Immature Granulocyte (auto (shin t code = Absolute Immature Granulocyte (auto) 0.02 0-0.1 [facility] antigen frvfy7309-36-23 09:20:50* Test Item Value Reference Range Interpretation Comments SAB interpretation (test code = 5950) Additional antib tripp information: DP1=DPB1*01:01/DPA1*02:62SX8=UKJ3*05:01/DPA1*02:66AY2=QUQ1*03:03/DQA1*02:01DR53= is a self-antigen SAB serum ID (test code = 5866) [id number] SAB serum collection D&T (test code = 5867) 05/03/2019 08:30 AM SAB class I antibody assignment (test code = 5870) Negative SAB cPRA class I (test code = 5868) 0 SAB class II antibody assignment (test code = 5871) DP1,DR10 ,DP5,DR53,DR51,DQ9 SAB cPRA class II (test code = 5869) 74 Case number (test code = 9853938) [id number] Single antigen beads (test code = 4604) See link below for PDF Lab Report [place] [facility] Ftagldf7191-67-84 08:02:00* Test Item Value Reference Range Interpretation Comments Urine Culture (test code = 630-4) No Result Data Provided [facility] Sfdsuan1113-33-30 08:02:00* Test Item Value Reference Range Interpretation Comments Urine Culture (test code = 630-4) No Result Data Provided [facility] Tffcjst7818-06-40 08:02:00* Test Item Value Reference Range Interpretation Comments Urine Culture (test code = 630-4) No Result Data Provided [facility] CenterABDOMEN-1VIEW (KUB)2019-05-16 13:43:00 [facility] [address] [address] Patient Name: MANJIT LUO MR #: [id number] : 1980 Age/Sex: 38/M Req #: [id number] Adm Physician: ABHIJIT YODER MD Ordered by: FAIZA DOWNEY Report #: [id number] Location: [employer]/SURG2 Room/Bed: [facility] Procedure: [id number] DX/ABDOMEN-1VIEW (KUB) Exam Date: 05/16/19 Exam Cm [...] 134 5 COPY TO: FAIZA DOWNEY IR UJLFQQJ5514-51-81 13:41:[address] [address] Patient Name: MANJIT LUO MR #: [id number] : 1980 Age/Sex: 38/M Req #: [id number] Adm Physician: ABHIJIT YODER MD Ordered by: FAIZA DOWNEY Report #: [id number] Location: MED/SURG2 Room/Bed: [facility] Procedure: [id number] DX/IR CONSULT Exam Date: Exam Time: REPORT STATUS: Signed Tunneled dialysis alonso ter insertion, 05/16/2019. History: Renal failure. Modality: Sonography and fluoroscopy. Sedation: Genny sed 1.0 mg and fentanyl 50 mcg was given intravenously for conscious sedation. Vital signs were monitored throughout the procedure by a nurse, and remained stable. Physician intra-service time was 15 its. Crisis Manager: Saloni. Fish Frog Or Oyster Farmer: None. Approach: Right internal jugular vein Estimated [...] needle into the right atrium. A 4 Sudanese micropuncture sheath was placed. A subcutaneous tunnel was created in the right anterior chest wall by blunt dissection. A 19 cm 14.5 Sudanese dialysis catheter was brought through the [...] 1:43 PM Dictated By: RONNIE VERDE MD 1349 Transcr ibed By: TIFFANY on 05/16/19 1348 COPY TO: FAIZA DOWNEY US GUIDANCE FOR VASCULAR EOSYX9793-29-59 13:41:[address] [address] Patient Name: MANJIT LUO MR #: [id number] : 1980 Age/Sex: 38/M Req #: [id number] [facility] Physician: ABHIJIT YODER MD Ordered by: FAIZA DOWNEY Report #: [id number] Location: MED/SURG2 Room/Bed: [facility] Procedure: [id number] US/US GUIDANCE FOR VASCULAR ACCES Exam Date: 05/16/19 Exam Time: 1225 REPORT STATUS: S igned Tunneled dialysis catheter insertion, 05/16/2019. History: Renal failure. Modality: Sonography and fluoroscopy. Sedation: Versed 1.0 mg and fentanyl 50 mcg was given intravenously for conscious sedation. Vital signs were monitored throughout the procedure by a nurse, and remained stable. Physician intra-service time was 15 its. Crisis Manager: Saloni. Fish Frog Or Oyster Farmer: None. Approach: Right internal jugular vein Estimated [...] into t he right atrium. A 4 Sudanese micropuncture sheath was placed. A subcutaneous t unnel was created in the right anterior chest wall by blunt dissection. A 19 cm 14.5 Sudanese dialysis catheter was brought through the [...] TO: FAIZA DOWNEY TUNNELLED CVC INSERT W/O SBQG0360-50-92 13:41:[address] [address] Patient Name: MANJIT LUO MR #: [id number] : 1980 Age/Sex: 38/M Req #: [id number] Adm Physician: ABHIJIT YODER MD Ordered by: FAIZA DOWNEY Report #: [id number] Location: MED/SURG2 Room/Bed: 210 Procedure: [id number] IR/TUNNELLED CVC INSERT W/O PORT Exam Date: Exam T sage: REPORT STATUS: Signed Tunn eled dialysis catheter insertion, 05/16/2019. History: Renal failure. Modality: Sonography and fluoroscopy. Sedation: Versed 1.0 mg and fentanyl 50 mcg was given intravenously for conscious sedation. Vital signs were monitored throughout the procedure by a nurse, and remained stable. Physician intra-service time was 15 its. Crisis Manager: Saloni. Fish Frog Or Oyster Farmer: None. Approach: Right internal jugular vein Estimated [...] into t he right atrium. A 4 Sudanese micropuncture sheath was placed. A subcutaneous t unnel was created in the right anterior chest wall by blunt dissection. A 19 cm 14.5 Sudanese dialysis catheter was brought through the [...] 05/16/19 1343 COPY TO: FAIZA DOWNEY Prothrombin Kmaq0393-23-71 10:37:00* Test Item Value Reference Range Interpretation Comments Prothrombin Time (test code = 5902-2) 16.2 11.9-14.5 H [facility] CenterProthromb Time International Ratio 2019-05-16 10:37:00* Test Item Value Reference Range Interpretation Comments Prothromb Time International Ratio (test code = 6301-6) 1.22 Oral Anticoagulant Therapy INR Values:1. Low Intensity Therapy 1.5 - 2.02 . Moderate Intensity Therapy 2.0 - 3.03. High Intensity Therapy(1) 2.5 - 3. 54. High Intensity Therapy(2) 3.0 - 4.05. Panic Value INR > 5.0 [facility] CenterTotal Sxneykjxw1484-39-25 08:57:00* Test Item Value Reference Range Interpretation Comments Total Bilirubin (test code = 1975-2) 0.2 0.2-1.2 [facility] CenterDirect Ausyxfgir6092-89-67 08:57:00* Test Item Value Reference Range Interpretation Comments Direct Bilirubin (test code = 50429-6) 0.1 0.0-0.5 [facility] CenterAspartate Amino Transf (AST/SGOT) 2019-05-16 08:57:00* Test Item Value Reference Range Interpretation Comments Aspartate Amino Transf (AST/SGOT) (test code = Aspartate Amino Transf (AST/SGOT)) 40 5-34 H [facility] CenterAlanine Aminotransferase (ALT/SGPT) 2019-05-16 08:57:00* Test Item Value Reference Range Interpretation Comments Alanine Aminotransferase (ALT/SGPT) (test code = 1742-6) 47 0-55 [facility] CenterTotal Tguphvn5579-06-30 08:57:00* Test Item Value Reference Range Interpretation Comments Total Protein (test code = 2885-2) 8.5 6.5-8.1 H [facility] CenterAlbumin2020-03-23 08:57:00* Test Item Value Reference Range Interpretation Comments Albumin (test code = 1751-7) 2.5 3.5-5.0 L [facility] CenterAlkaline Jqzbkjektzr4038-63-50 08:57:00* Test Item Value Reference Range Interpretation Comments Alkaline Phosphatase (test code = 6768-6) 437 40-150 H [facility] CenterDirect Upbhvftbv9465-60-98 08:57:00* Test Item Value Reference Range Interpretation Comments Direct Bilirubin (test code = 57547-4) 0.1 0.0-0.5 [facility] CenterDirect Ktlbmkcir3781-87-61 08:57:00* Test Item Value Reference Range Interpretation Comments Direct Bilirubin (test code = 37384-5) 0.1 0.0-0.5 [facility] or plasma conjugated bilirubin measurement (mass/volume)2019-05-16 05:00:00* Test Item Value Reference Range Interpretation Comments Direct Bilirubin (test code = 74882-7) 0.1 0.0-0.5 [facility]erum or plasma conjugated bilirubin measurement (mass/volume)2019-05-16 05:00:00* Test Item Value Reference Range Interpretation Comments Direct Bilirubin (test code = 71345-0) 0.1 0.0-0.5 [facility] CenterMiscellaneous referral nopt0125-33-57 12:16:23* Test Item Value Reference Range Interpretation Comments Mis test name (test code = 2566) PTNT [place] Misc test result (test code = 1730) SEE NOTE Report Status: FINAL Prothrombin [id number] Mutation, B PTNT Interpretation This individual DOES NOT have the Prothrombin R57165V mutation. Although the Prothrombin V16112U mutation is absent, the individual may have other genetic and environmental risk factors for thrombosis. Consider genetic consultation and counseling of potentially affected family members regarding laboratory testing. ADDITIONAL INFORMATION This test is a direct mutation analysis using PCR amplification, signal generation and release by cleavage of sequence specific alleles ([employer], [employer], [place], [place])............... ..............................................Prothrombin C58837O Mutation, B Negative Reference Value: Negative............................................................PTNT Reviewed By DARRYL Oneil - - - - - - - - - - - - - - - - - - - - - - - - - - - - - -Laboratory Notes:This test has been modified from the pie maker'sinstructions. Its performance characteristics weredetermined by [facility] in a manner consistent with CLIArequirements. This test has not been cleared or approved bythe U.S. Food and Drug Administration.+ +: PERFORMING SITE LEGEND :+ +: : [facility] :: : [address] [place] [address] :+ + IGNACIO (test code = IGNACIO) Prothrombin N51756M Mutation [facility] Test ID: PTNTSource: Whole Blood [place] MethodistHepatitis B Surface Antibody, Tinlx3701-07-39 08:00:00* Test Item Value Reference Range Interpretation Comments Hepatitis B Surface Antibody, Quant (test code = 5194-6) <3.1 Immunity>9.9 L Status of Immunity Anti-HBs Level Inconsistent with Immunity 0.0 - 9.9Consistent with Immunity >9.9[facility] B Surface Glmkkhn6108-86-52 08:00:00* Test Item Value Reference Range Interpretation Comments Hepatitis B Surface Antigen (test code = 5196-1) Negative Negat stuart [facility] B Core IgM Pszxvsqh3318-24-70 08:00:00* Test Item Value Reference Range Interpretation Comments Hepatitis B Core IgM Antibody (test code = 37183-8) Negative Ne gative Performed at: [facility] - [facility] [address] [id number] Director: Doc Bartlett MD, Phone: [phone] [facility] HospitalHeroberts chapeltis B Surface Antibody, Wrkbw8716-40-73 08:00:00* Test Item Value Reference Range Interpretation Comments Hepatitis B Surface Antibody, Quant (test code = 5194-6) <3.1 Immunity>9.9 L Status of Immunity Anti-HBs Level Inconsistent with Immunity 0.0 - 9.9Consistent with Immunity >9.9[facility] B Core IgM Ohwjbzmw2459-23-31 08:00:00* Test Item Value Reference Range Interpretation Comments Hepatitis B Core IgM Antibody (test code = 34569-2) Negative Ne gative Performed at: [employer] [id number] Director: Doc Bartlett MD, Phone: [phone] Regional Medical Center B Surface Antibody, Kcqyq7892-11-94 08:00:00* Test Item Value Reference Range Interpretation Comments Hepatitis B Surface Antibody, Quant (test code = 5194-6) <3.1 Immunity>9.9 L Status of Immunity Anti-HBs Level Inconsistent with Immunity 0.0 - 9.9Consistent with Immunity >9.9[facility] B Core IgM Rfgnyaug0418-09-37 08:00:00* Test Item Value Reference Range Interpretation Comments Hepatitis B Core IgM Antibody (test code = 54928-4) Negative Ne gative Performed at: [facility] [employer] [id number] Director: Doc Bartlett MD, Phone: [phone] [facility] Shorelineerum hepatitis B virus surface antibody assay by radioimmunoassay (units/volume)2019-05-12 17:30:00* Test Item Value Reference Range Interpretation Comments Hepatitis B Surface Antibody, Quant (test code = 5194-6) <3.1 Immunity>9.9 Status of Immunity Anti-HBs Level Inconsistent with Immunity 0.0 - 9.9Consistent with Immunity >9.9[facility] Kingwooderum or plasma hepatitis B virus core IgM antibody detection by kohobogrial7606-99-59 17:30:00* Test Item Value Reference Range Interpretation Comments Hepatitis B Core IgM Antibody (test code = 28323-5) Negative Ne gative Performed at: - [facility] [id number] Director: Doc Bartlett MD, Phone: [phone] Spohn [facility] – Shorelineerum hepatitis B virus surface antibody assay by radioimmunoassay (units/volume)2019-05-12 17:30:00* Test Item Value Reference Range Interpretation Comments Hepatitis B Surface Antibody, Quant (test code = 5194-6) <3.1 Immunity>9.9 Status of Immunity Anti-HBs Level Inconsistent with Immunity 0.0 - 9.9Consistent with Immunity >9.9[facility] Kingwooderum or plasma hepatitis B virus core IgM antibody detection by hjizduifpkp5786-35-65 17:30:00* Test Item Value Reference Range Interpretation Comments Hepatitis B Core IgM Antibody (test code = 40569-2) Negative Ne gative Performed at: [employer] [facility] [id number] Director: Doc Bartlett MD, Phone: [phone] [facility] Medical CenterGlobulin2020-03-19 05:45:00* Test Item Value Reference Range Interpretation Comments Globulin (test code = 78095-7) 5.5 2.3-3.5 H [facility] CenterAlbumin/Globulin Vubvz1714-51-95 05:45:00 * Test Item Value Reference Range Interpretation Comments Albumin/Globulin Ratio (test code = 1759-0) 0.4 0.8-2.0 L [facility] CenterBlood Eaodfry0911-55-85 19:22:00* Test Item Value Reference Range Interpretation Comments Blood Culture (test code = 87608032) NO GROWTH AFTER 5 DAYS, FINAL REPORT [facility] CenterLow resolution full typing by SSO 2019-05-11 10:19:06* Test Item Value Reference Range Interpretation Comments Interpretation (test code = 0098858) Note: HLA typing was performed by PCR-SSO DNA based procedures.Note: The serological phenotype is an interpretation based on molecular typing data. Case number (test code = [id number]) [id number] Low resolution full typing by SSO (test code = 1359) S ee link below for PDF Lab Report Alejandro AriasAdmfmvncwHnhekfhj6528-35-14 06:07:00* Test Item Value Reference Range Interpretation Comments Ferritin (test code = 2276-4) 313.92 21.81-274.66 H [facility] CenterFerritin2020-03-18 06:07:00* Test Item Value Reference Range Interpretation Comments Ferritin (test code = 2276-4) 313.92 21.81-274.66 H [facility] CenterFerritin2020-03-18 06:07:00* Test Item Value Reference Range Interpretation Comments Ferritin (test code = 2276-4) 313.92 21.81-274.66 H [facility] CenterPhosphorus Xnqjd5331-86-81 05:50:00* Test Item Value Reference Range Interpretation Comments Phosphorus Level (test code = YSC0740) 6.2 2.3-4.7 H [facility] Elmpb3473-42-66 05:50:00* Test Item Value Reference Range Interpretation Comments Iron Level (test code = 2498-4) 38 65-175 L [facility] CenterTotal Iron Binding Ohszzhws1183-80-46 05:50:00* Test Item Value Reference Range Interpretation Comments Total Iron Binding Capacity (test code = 2500-7) 165 261-4 78 L [facility] CenterPercent Iron Cvoupmyhhi2376-80-46 05:50:00* Test Item Value Reference Range Interpretation Comments Percent Iron Saturation (test code = 2502-3) 23 15-50 [facility] CenterTransferrin2020-03-18 05:50:00* Test Item Value Reference Range Interpretation Comments Transferrin (test code = 3034-6) 118 174-364 L [facility] Gfiqa0681-52-89 05:50:00* Test Item Value Reference Range Interpretation Comments Iron Level (test code = 2498-4) 38 65-175 L [facility] CenterTotal Iron Binding Sqmykltu7511-50-73 05:50:00* Test Item Value Reference Range Interpretation Comments Total Iron Binding Capacity (test code = 2500-7) 165 261-4 78 L [facility] CenterPercent Iron Viapfowqxu5176-02-89 05:50:00* Test Item Value Reference Range Interpretation Comments Percent Iron Saturation (test code = 2502-3) 50 [facility] CenterTransferrin2020-03-18 05:50:00* Test Item Value Reference Range Interpretation Comments Transferrin (test code = 3034-6) 118 174-364 L [facility] CenterIron Itznh0991-87-83 05:50:00* Test Item Value Reference Range Interpretation Comments Iron Level (test code = 2498-4) 38 65-175 L [facility] CenterTotal Iron Binding Uotzufxm0236-48-71 05:50:00* Test Item Value Reference Range Interpretation Comments Total Iron Binding Capacity (test code = 2500-7) 165 261-4 78 L [facility] CenterPercent Iron Xnreniwfxs4565-31-37 05:50:00* Test Item Value Reference Range Interpretation Comments Percent Iron Saturation (test code = 2502-3) [facility] CenterTransferrin2020-03-18 05:50:00* Test Item Value Reference Range Interpretation Comments Transferrin (test code = 3034-6) 118 174-364 L [facility] or plasma iron measurement (mass/volume)2019-05-11 04:50:00* Test Item Value Reference Range Interpretation Comments Iron Level (test code = 2498-4) 38 65-175 [facility]um or plasma iron binding capacity measurement (mass/volume)2019-05-11 04:50:00* Test Item Value Reference Range Interpretation Comments Total Iron Binding Capacity (test code = 2500-7) 165 261-4 78 [facility]lineerum or plasma iron saturation measurement (mass fraction)2019-05-11 04:50:00* Test Item Value Reference Range Interpretation Comments Percent Iron Saturation (test code = 2502-3) 50 [facility]erum or plasma transferrin measurement (mass/volume)2019-05-11 04:50:00* Test Item Value Reference Range Interpretation Comments Transferrin (test code = 3034-6) 118 174-364 [facility]um or plasma ferritin measurement (mass/volume)2019-05-11 04:50:00* Test Item Value Reference Range Interpretation Comments Ferritin (test code = 2276-4) 313.92 21.81-274.66 [facility] or plasma iron measurement (mass/volume)2019-05-11 04:50:00* Test Item Value Reference Range Interpretation Comments Iron Level (test code = 2498-4) 38 65-175 [facility]um or plasma iron binding capacity measurement (mass/volume)2019-05-11 04:50:00* Test Item Value Reference Range Interpretation Comments Total Iron Binding Capacity (test code = 2500-7) 165 261-4 78 [facility]lineerum or plasma iron saturation measurement (mass fraction)2019-05-11 04:50:00* Test Item Value Reference Range Interpretation Comments Percent Iron Saturation (test code = 2502-3) 23 15-50 [facility]erum or plasma transferrin measurement (mass/volume)2019-05-11 04:50:00* Test Item Value Reference Range Interpretation Comments Transferrin (test code = 3034-6) 118 174-364 [facility]lineerum or plasma ferritin measurement (mass/volume)2019-05-11 04:50:00* Test Item Value Reference Range Interpretation Comments Ferritin (test code = 2276-4) 313.92 21.81-274.66 [facility] CenterBacterial urine rfiiqye1525-10-21 15:50:00* Test Item Value Reference Range Interpretation Comments Urine Culture (test code = 630-4) YEAST SPECIES [facility] CenterUrine Wkhftru2035-40-02 07:34:00* Test Item Value Reference Range Interpretation Comments Urine Culture (test code = 630-4) No Result Data Provided [facility] CenterHemoglobin A1c Bsxcqwe6275-73-43 20:19:00 * Test Item Value Reference Range Interpretation Comments Hemoglobin A1c Percent (test code = Hemoglobin A1c Percent) 5.2 4.0-7.0 [facility] CenterHemoglobin A1c Dsdcodt2920-79-63 20:19:00 * Test Item Value Reference Range Interpretation Comments Hemoglobin A1c Percent (test code = Hemoglobin A1c Percent) 5.2 4.0-7.0 [facility] CenterHemoglobin A1c Daprzxd5208-96-87 20:19:00 * Test Item Value Reference Range Interpretation Comments Hemoglobin A1c Percent (test code = Hemoglobin A1c Percent) 5.2 4.0-7.0 [facility] CenterFree Jcgobfcap5304-25-81 19:42:00* Test Item Value Reference Range Interpretation Comments Free Thyroxine (test code = 3024-7) 0.79 0.8-1.8 L [facility] CenterThyroid Stimulating Hormone (TSH) 2019-05-08 19:42:00* Test Item Value Reference Range Interpretation Comments Thyroid Stimulating Hormone (TSH) (test code = 45375-9) 1.669 0.350-4.940 [facility] Agdwdwrjy6352-90-50 19:42:00* Test Item Value Reference Range Interpretation Comments Free Thyroxine (test code = 3024-7) 0.79 0.8-1.8 L [facility] CenterThyroid Stimulating Hormone (TSH) 2019-05-08 19:42:00* Test Item Value Reference Range Interpretation Comments Thyroid Stimulating Hormone (TSH) (test code = 24432-6) 1.669 0.350-4.940 [facility] Kdainltof3720-49-50 19:42:00* Test Item Value Reference Range Interpretation Comments Free Thyroxine (test code = 3024-7) 0.79 0.8-1.8 L [facility] CenterThyroid Stimulating Hormone (TSH) 2019-05-08 19:42:00* Test Item Value Reference Range Interpretation Comments Thyroid Stimulating Hormone (TSH) (test code = 73799-4) 1.669 0.350-4.940 [facility] CenterFluoroscopic procedure less than one hour yckxctay7859-10-94 18:10:00* Test Item Value Reference Range Interpretation Comments Hemoglobin A1c Percent (test code = Hemoglobin A1c Percent) 5.2 4.0-7.0 [facility]um or plasma thyroxine (T4) free measurement (mass/volume)2019-05-08 18:10:00* Test Item Value Reference Range Interpretation Comments Free Thyroxine (test code = 3024-7) 0.79 0.8-1.8 [facility] plasma thyrotropin measurement by detection limit <= 0.005 miu/l (units/volume)2019-05-08 18:10:00* Test Item Value Reference Range Interpretation Comments Thyroid Stimulating Hormone (TSH) (test code = 09429-3) 1.669 0.350-4.940 [facility] CenterFluoroscopic procedure less than one hour jcukaxqb6427-31-66 18:10:00* Test Item Value Reference Range Interpretation Comments Hemoglobin A1c Percent (test code = Hemoglobin A1c Percent) 5.2 4.0-7.0 [facility] or plasma thyroxine (T4) free measurement (mass/volume)2019-05-08 18:10:00* Test Item Value Reference Range Interpretation Comments Free Thyroxine (test code = 3024-7) 0.79 0.8-1.8 [facility] or plasma thyrotropin measurement by detection limit <= 0.005 miu/l (units/volume)2019-05-08 18:10:00* Test Item Value Reference Range Interpretation Comments Thyroid Stimulating Hormone (TSH) (test code = 98947-0) 1.669 0.350-4.940 [facility] CenterUrine [id number] 20:28:00* Test Item Value Reference Range Interpretation Comments Urine WBC (test code = 5821-4) 11-20 0-5 H [facility] CenterU[facility] [id number] 20:28:00* Test Item Value Reference Range Interpretation Comments Urine RBC (test code = 04914-5) 6-10 0-5 H [facility] CenterUrine Wzulxkkr9002-87-44 20:28:00* Test Item Value Reference Range Interpretation Comments Urine Bacteria (test code = 14074-4) MANY NONE H [facility] CenterUrine Epithelial Qkrxw3978-75-25 20:28:00 * Test Item Value Reference Range Interpretation Comments Urine Epithelial Cells (test code = 10135-5) RARE NONE [facility] CenterUrine Sefot0263-86-38 20:12:00* Test Item Value Reference Range Interpretation Comments Urine Color (test code = 5778-6) YELLOW YELLOW [facility] CenterU[facility] Ggdcehp6544-57-42 20:12:00* Test Item Value Reference Range Interpretation Comments Urine Clarity (test code = 50393-1) CLOUDY CLEAR H [facility] CenterUrine Specific Eiqgzxh9549-86-58 20:12:00 * Test Item Value Reference Range Interpretation Comments Urine Specific [place] (test code = 5811-5) 1.020 1.010-1.02 5 [facility] CenterU[facility] aA3115-73-46 20:12:00* Test Item Value Reference Range Interpretation Comments Urine pH (test code = 54888-3) 5.5 5-7 [facility] CenterU[facility] Leukocyte Dlidzpsb3843-13-84 20:12:00* Test Item Value Reference Range Interpretation Comments Urine Leukocyte Esterase (test code = 5799-2) LARGE NEGATIVE [facility] CenterU[facility] Gthrdmg7116-07-29 20:12:00* Test Item Value Reference Range Interpretation Comments Urine Nitrite (test code = 70808-5) POSITIVE NEGATIVE H [facility] CenterUrine Gsxtpzt9814-40-31 20:12:00* Test Item Value Reference Range Interpretation Comments Urine Protein (test code = 5804-0) >=300 NEGATIVE [facility] CenterUrine Glucose (UA)2019-05-06 20:12:00* Test Item Value Reference Range Interpretation Comments Urine Glucose (UA) (test code = 2349-9) 1+ NEGATIVE H [facility] CenterUrine Uxxqdbd1496-38-53 20:12:00* Test Item Value Reference Range Interpretation Comments Urine Ketones (test code = 26701-8) NEGATIVE NEGATIVE [facility] CenterU[facility] Puikroucsigh4633-79-49 20:12:00* Test Item Value Reference Range Interpretation Comments Urine Urobilinogen (test code = 00750-0) 0.2 0.2-1 [facility] CenterU[facility] Aymgrumlv7796-19-70 20:12:00* Test Item Value Reference Range Interpretation Comments Urine Bilirubin (test code = 1978-6) NEGATIVE NEGATIVE [facility] CenterU[facility] Ygcnw2717-24-48 20:12:00* Test Item Value Reference Range Interpretation Comments Urine Blood (test code = 56621-9) MODERATE NEGATIVE [facility] CenterInfluenza Virus Types A,B Antigen 2019-05-06 19:44:00* Test Item Value Reference Range Interpretation Comments Influenza Virus Types A,B Antigen (test code = 47165-6) NEGATIVE NEGATIVE [facility] CenterInfluenza Virus Types A,B Antigen 2019-05-06 19:44:00* Test Item Value Reference Range Interpretation Comments Influenza Virus Types A,B Antigen (test code = 03114-0) NEGATIVE NEGATIVE [facility] CenterInfluenza Virus Types A,B Antigen 2019-05-06 19:44:00* Test Item Value Reference Range Interpretation Comments Influenza Virus Types A,B Antigen (test code = 21682-9) NEGATIVE NEGATIVE [facility] CenterLactic Acid Fldpv4517-11-59 19:41:00* Test Item Value Reference Range Interpretation Comments Lactic Acid Level (test code = Lactic Acid Level) 0.8 0.5- 2.0 [facility] CenterCHEST 2 IKWIG4039-48-28 19:37:00 [place] [address] Patient Name: MANJIT LUO MR #: [id number] : 1980 Age/Sex: 38/M Req #: [id number] Adm Physician: Ordered by: JC CATES NP Report #: [id number] Location: Room/Bed: Procedure: [id number] DX/CHEST 2 VIEWS Exam Date: Exam Time: [...] on 05/06/191937 CO PY TO: JC CATES [employer]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 Group A Streptococcus Vcwosm9314-25-86 19:35:00* Test Item Value Reference Range Interpretation Comments Group A Streptococcus Screen (test code = 39381-0) NEGATIVE NEG ATIVE [facility] CenterGroup A Streptococcus Ohfgqy8665-25-48 19:35:00* Test Item Value Reference Range Interpretation Comments Group A Streptococcus Screen (test code = 15276-5) NEGATIVE NEG ATIVE [facility] CenterGroup A Streptococcus Axrkdp1797-35-41 19:35:00* Test Item Value Reference Range Interpretation Comments Group A Streptococcus Screen (test code = 54357-6) NEGATIVE NEG ATIVE [facility] CenterInfluenza virus A and B antigen identification by jjqikafnxuoyvdfwwk3574-87-17 19:03:00* Test Item Value Reference Range Interpretation Comments Influenza Virus Types A,B Antigen (test code = 62629-9) NEGATIVE NEGATIVE [facility]linetreptococcus pyogenes antigen detection in oosugt5090-55-31 19:03:00* Test Item Value Reference Range Interpretation Comments Group A Streptococcus Screen (test code = 68563-2) NEGATIVE NEG ATIVE [facility] CenterInfluenza virus A and B antigen identification by ycbtxymbkiqqzjkxdq4656-18-80 19:03:00* Test Item Value Reference Range Interpretation Comments Influenza Virus Types A,B Antigen (test code = 25792-3) NEGATIVE NEGATIVE [facility]linetreptococcus pyogenes antigen detection in ihxigd8715-75-95 19:03:00* Test Item Value Reference Range Interpretation Comments Group A Streptococcus Screen (test code = 06271-3) NEGATIVE NEG ATIVE [facility] CenterFunctional protein I9708-63-77 15:25:13* Test Item Value Reference Range Interpretation Comments Functional protein C (test code = 75713-6) 56 % 70-165 L Low Protein C Activity and prolonged Prothrombin time consistent with vitamin K deficiency, warfarin therapy or liver disease. Recommend repeating Protein C when PT is normal.Reviewed by Huan Keita MD, PhD. Lab Interpretation (test code = 03912-1) Abnormal [place] MethodistFunctional protein O2405-93-06 10:14:15* Test Item Value Reference Range Interpretation Comments Functional protein S (test code = 81669-8) 91 % 74-160 Functional Protein S performed. If result is decreased Total and Free Protein S Antigen will be performed. [place] MethodistLupus anticoagulant zyszy4711-53-14 09:56:20* Test Item Value Reference Range Interpretation Comments Prothrombin time (test code = 5902-2) 15.9 11.5- 14.5 sec H INR (test code = 32593-5) 1.3 Th e International Normalized Ratio (INR) is a therapeutic monitoring tool for patients who are stable on oral anticoagulant therapy. An INR of 2.0-3.0 is suggested for deep vein thrombosis/pulmonary embolism. PTT (test code = 68485-5) 34.0 23.0- 36.0 sec PTT therapeutic range for unfractionated heparin is61.0-112.0 seconds which corresponds to Anti-Xa0.3-0.7 U/ml. PTT lupus anticoagulant (test code = 57447-0) 36.1 27.0- 38 .0 sec Lupus anticoagulant [...] instructions. The performance characteristics were determined by [facility] in a manner consistent with CLIA requirements. This test has not been cleared or approved by the U.S. Food and Drug Administration. Lab Interpretation (test code = 66797-6) Abnormal [facility] Z-[id number] 14:35:16* Test Item Value Reference Range Interpretation [...] NOT RECOMMENDED FOR USE WITH T=SPOT.TB TEST.Performed by:[facility] Molecular Tuberculosis Laboratory [facility] ([id number])[place], [place] [address] [facility] type 1/2 combined Ab, NuU9381-17-29 13:16:14* Test Item Value Reference Range Interpretation Comments HSV 1/2 combined Ab, IgM (test code = 53109-8) 0.71 <=0.89 IV INTERPRETIVE INFORMATION: Herpes Simplex [...] for more than 12 months post-infection.Performed by [facility],[address] [place] [id number] swe.[employer], Trung Boyer MD, Lab. Director [place] MethodistCytomegalovirus Ab, GqP7988-86-54 21:16:52* Test Item Value Reference Range Interpretation Comments Cytomegalovirus Ab, IgM (test code = 3364883) Negative Negative [place] MethodistHLA autologous jkmafezfmb1856-48-13 20:52:48* Test Item Value Reference Range Interpretation Comments AXL source (test code = 5891) Peripheral Blood AXL current serum ID (test code = 5892) [id number] [facility] D&T (test code = 5893) 05/03/2019 08:30 AM [facility] flow XM T cell result, current (test code = 5894) Negative [facility] flow XM B cell result, current (test code = 5895) Negative Case number (test code = 3713111) [id number] HLA autologous crossmatch (test code = 1090) See link below for PDF Lab Report Alejandro AriasHomocystine, cbvvav0649-37-69 12:03:28* Test Item Value Reference Range Interpretation Comments Homocysteine (test code = 57192-1) 17.5 umol/L 0-15 H The risk for coronary vascular disease increases progressively with homocysteine concentration. A 3.4 times greater risk is associated with a homocysteine concentration of greater than 15.8 umol/L as compared to a concentration below 14.1 umol/L. Lab Interpretation (test code = 91771-6) Abnormal [place] MethodistHSV 1 & 2 glycoprotein G Ab, WtU7137-95-44 11:09:49* Test Item Value Reference Range Interpretation Comments HSV 1 glycoprotein G Ab, IgG (test code = 02858-6) Negative Neg ative Negative: No IgG antibodies to HSV1 detected. HSV 2 glycoprotein G Ab, IgG (test code = 49444-7) Negative Neg ative Negative: No IgG antibodies to HSV2 detected. [place] MethodistCytomegalovirus Ab, BfS6435-36-30 11:09:11* Test Item Value Reference Range Interpretation Comments Cytomegalovirus Ab, IgG (test code = 02470-9) Positive Negative A Positive; IgG antibody to CMV detected which may indicateexposure to CMV infection. Lab Interpretation (test code = 21238-6) Abnormal [place] MethodistEpstein-Vee virus antibody dvgi2993-88-39 11:08:37* Test Item Value Reference Range Interpretation Comments EBV Ab to viral capsid Ag, IgG (test code = 40824-6) Positive N egative A EBV Ab to viral capsid Ag, IgM (test code = 06061-1) Negative N egative EBV Ab to nuclear Ag, IgG (test code = 7883-2) Positive Negativ e A EBV Ab to early (D) Ag, IgG (test code = 35388-9) Negative Nega tive Helder-Vee virus antibody interpretation (test code = 5466) SEE C OMMENT Infection Status: Results may suggest past EBV infection. Lab Interpretation (test code = 15296-4) Abnormal [place] MethodistParathyroid xnvsakd3498-70-73 10:15:05* Test Item Value Reference Range Interpretation Comments PTH (test code = 2731-8) 507 pg/mL 15-65 H Lab Interpretation (test code = 36042-4) Abnormal [place] MethodistAntithrombin III ugxwz1272-88-52 10:06:44* Test Item Value Reference Range Interpretation Comments Antithrombin III (test code = 3174-0) 81 % 80-130 [place] MethodistABORh - dsnlrzglci0308-86-28 09:58:00* Test Item Value Reference Range Interpretation Comments ABO grouping (test code = 883-9) O Rh type (test code = 52757-5) POS [place] WnnlkvbliAumshiexvz2421-36-83 09:52:47* Test Item Value Reference Range Interpretation Comments Fibrinogen (test code = 09369-2) 627 mg/dL 200-450 H Lab Interpretation (test code = 75563-4) Abnormal [place] EllhnnwliKpiaqkfktwy2548-07-12 09:41:25* Test Item Value Reference Range Interpretation Comments Cholesterol (test code = 2093-3) 86 mg/dL <200 [place] MethodistCreatinine eifug4349-49-59 09:41:25* Test Item Value Reference Range Interpretation Comments Creatinine (test code = 2160-0) 4.40 mg/dL 0.7-1.2 H Lab Interpretation (test code = 44035-3) Abnormal Ale[place]andro DchpwdjvyAOU8078-11-85 09:41:25* Test Item Value Reference Range Interpretation Comments LDH (test code = 11162-2) 235 U/L 87-225 H Lab Interpretation (test code = 92741-1) Abnormal [place] JkzpmioscOjhrqzfapbjlu1663-80-12 09:41:25* Test Item Value Reference Range Interpretation Comments Triglycerides (test code = 2571-8) 103 mg/dL <150 [place] MethodistAmylase qiczu2679-86-08 09:41:24* Test Item Value Reference Range Interpretation Comments Amylase (test code = 1798-8) 46 U/L 28-100 [place] MethodistGlucose fblnb1634-24-33 09:41:24* Test Item Value Reference Range Interpretation Comments Glucose (test code = 2345-7) 146 mg/dL 65-99 H Lab Interpretation (test code = 51570-9) Abnormal [place] MethodistPhosphorus scfrt5753-89-81 09:41:24* Test Item Value Reference Range Interpretation Comments Phosphorus (test code = 2777-1) 4.6 mg/dL 2.4-4.5 H Lab Interpretation (test code = 31051-2) Abnormal [place] MethodistCT Abdomen Pelvis Wo Vfrlzklh9782-39-61 09:37:13Hm Interface, Radiology Results - 05/03/2019 9:40 [...] inguinal lymph nodes, nonspecific though may be reactive.[id number] [facility] 2 Eu5480-54-54 09:36:57Hm Interface, Radiology Results 05/03/2019 9:40 AM [...] present.Visualized skeletal structures demonstrate no definite abnormality.Negative examination.[facility]-8UW74419LBDqqsyrm MethodistHGB GOP4931-68-47 16:24:00* Test Item Value Reference Range Interpretation Comments HEMOGLOBIN (test code = HGB) 8.1 gm/dL 13.0-17.0 L HEMATOCRIT (test code = HCT) 25.8 % 36.0-48.0 L PHJRXZRJ2514-42-11 16:47:00* Test Item Value Reference Range Interpretation Comments FERRITIN (test code = CHANELLE) 374 ng/mL 23.9-336.2 H HGB KVX7810-71-69 15:41:00* Test Item Value Reference Range Interpretation Comments HEMOGLOBIN (test code = HGB) 8.0 gm/dL 13.0-17.0 L HEMATOCRIT (test code = HCT) 24.8 % 36.0-48.0 LL BASIC METABOLIC GRMYW8869-37-77 18:42:00* Test Item Value Reference Range Interpretation [...] code = CA) 6.3 mg/dl 8.0-10.5 L JKJHVQOCBLL0314-18-36 18:42:00* Test Item Value Reference Range Interpretation Comments PHOSPHOROUS (test code = PHOS) 6.1 mg/dl 2.5-4.9 H URIC GRZA5255-45-51 18:42:00* Test Item Value Reference Range Interpretation Comments URIC ACID (test code = URIC) 8.7 mg/dl 2.6-7.2 H KBQUWIAPI2475-33-94 18:42:00* Test Item Value Reference Range Interpretation [...] = FESAT) 19 % 15-50 N URINALYSIS VRLESBIP3375-71-61 17:35:00* Test Item Value Reference Range Interpretation [...] code = BACU) MOD NONE UR PROTEIN/CREATININE QHYHM8220-23-12 17:35:00* Test Item Value Reference Range Interpretation Comments UR PROTEIN RESULT (test code = PROTU) 421.0 MG/DL 0-15.0 H UR CREATININE RESULT (test code = CREATU) 72.88 MG/DL 30-125 N PROTEIN/CREATININE RATIO (test code = P/CRATIO) 5.0 mg/g cre 0-200 N CBC W/AUTO JKYI3946-11-36 17:25:00* Test Item Value Reference Range Interpretation [...] = BA#) 0.0 K/mm3 0.0-0.2 N URINALYSIS UREXACGY0467-69-39 17:24:00* Test Item Value Reference Range Interpretation [...] code = BACU) MOD NONE UR PROTEIN/CREATININE HTJRZ0614-20-19 17:24:00* Test Item Value Reference Range Interpretation Comments UR PROTEIN RESULT (test code = PROTU) MG/DL 0-15.0 UR CREATININE RESULT (test code = CREATU) MG/DL 30-125 PROTEIN/CREATININE RATIO (test code = P/CRATIO) mg/g cre 0-200 URINALYSIS EAPYGIHB7761-58-90 17:23:00* Test Item Value Reference Range Interpretation [...] (test code = BACU) NONE UR PROTEIN/CREATININE KYZAN7790-07-62 17:23:00* Test Item Value Reference Range Interpretation Comments UR PROTEIN RESULT (test code = PROTU) MG/DL 0-15.0 UR CREATININE RESULT (test code = CREATU) MG/DL 30-125 PROTEIN/CREATININE RATIO (test code = P/CRATIO) mg/g cre 0-200 Sodium Rrnny0166-94-66 00:38:00* Test Item Value Reference Range Interpretation Comments Sodium Level (test code = 2951-2) 137 136-145 [facility] CenterPotassium Guahn7785-64-84 00:38:00* Test Item Value Reference Range Interpretation Comments Potassium Level (test code = 2823-3) 5.0 3.5-5.1 [facility] CenterChloride Vygqy2754-40-76 00:38:00* Test Item Value Reference Range Interpretation Comments Chloride Level (test code = 2075-0) 116 98-107 H [facility] CenterCarbon Dioxide Aeqfs5385-94-03 00:38:00* Test Item Value Reference Range Interpretation Comments Carbon Dioxide Level (test code = 2028-9) 13 22-29 L [facility] CenterAnion Ggo8932-18-11 00:38:00* Test Item Value Reference Range Interpretation Comments Anion Gap (test code = 25778-3) 13.0 8-16 [facility] CenterBlood Urea Qcvdwgdg3324-73-25 00:38:00* Test Item Value Reference Range Interpretation Comments Blood Urea Nitrogen (test code = 3094-0) 42 7-26 H [facility] CenterCreatinine2020-01-27 00:38:00* Test Item Value Reference Range Interpretation Comments Creatinine (test code = 2160-0) 4.16 0.72-1.25 H [facility] CenterBUN/Creatinine Iutag4406-87-61 00:38:00* Test Item Value Reference Range Interpretation Comments BUN/Creatinine Ratio (test code = 3097-3) 10 6-25 [facility] CenterEstimat Glomerular Filtration Rate 2019-03-21 00:38:00* Test Item Value Reference Range Interpretation Comments Estimat Glomerular Filtration Rate (test code = 356000466) 16 >60 L Ranges were taken from the National Kidney Disease Education Program and the [facility] [employer] literature.Reference ranges:60 or greater: Kmedmx26-06 ( for 3 consecutive months): Chronic kidney disease 15 or less: Kidney failureMethodist Midlothian Medical CenterGlucose Sxavr5511-97-62 00:38:00* Test Item Value Reference Range Interpretation Comments Glucose Level (test code = TQR2256) 172 74-118 H [facility] CenterCalcium Bnrzd8343-59-23 00:38:00* Test Item Value Reference Range Interpretation Comments Calcium Level (test code = 85593-5) 6.6 8.4-10.2 LL Results repeated and called to MICHAEL MONTGOMERY RN at 0037 on 03/21/19 by Wandy branch Read back and verified.[facility] CenterWhite Blood Yxtof0786-37-48 00:36:00* Test Item Value Reference Range Interpretation Comments White Blood Count (test code = 6690-2) 5.55 4.8-10.8 [facility] CenterRed Blood Dpiqt5913-13-34 00:36:00* Test Item Value Reference Range Interpretation Comments Red Blood Count (test code = 789-8) 2.73 4.3-5.7 L [facility] CenterHemoglobin2020-01-27 00:36:00* Test Item Value Reference Range Interpretation Comments Hemoglobin (test code = 89244-6) 7.4 14.0-18.0 L [facility] CenterHematocrit2020-01-27 00:36:00* Test Item Value Reference Range Interpretation Comments Hematocrit (test code = 4544-3) 23.3 38.2-49.6 L [facility] CenterMean Corpuscular Rmyszn1317-81-59 00:36:00* Test Item Value Reference Range Interpretation Comments Mean Corpuscular Volume (test code = 787-2) 85.3 81-99 [facility] CenterMean Corpuscular Ipyodojxmb0687-32-29 00:36:00* Test Item Value Reference Range Interpretation Comments Mean Corpuscular Hemoglobin (test code = 785-6) 27.1 28-32 L [facility] CenterMean Corpuscular Hemoglobin Concent 2019-03-21 00:36:00* Test Item Value Reference Range Interpretation Comments Mean Corpuscular Hemoglobin Concent (test code = 786-4) 31.8 31-35 [facility] CenterRed Cell Distribution Wespi2652-67-99 00:36:00* Test Item Value Reference Range Interpretation Comments Red Cell Distribution Width (test code = 81009-9) 14.7 11.7 -14.4 H [facility] CenterPlatelet Gbpbx3146-87-20 00:36:00* Test Item Value Reference Range Interpretation Comments Platelet Count (test code = 777-3) 187 140-360 [facility] CenterNeutrophils (%) (Auto)2019-03-21 00:36:00 * Test Item Value Reference Range Interpretation Comments Neutrophils (%) (Auto) (test code = 89289-3) 68.1 38.7-80.0 [facility] CenterLymphocytes (%) (Auto)2019-03-21 00:36:00 * Test Item Value Reference Range Interpretation Comments Lymphocytes (%) (Auto) (test code = 736-9) 19.8 18.0-39.1 [facility] CenterMonocytes (%) (Auto)2019-03-21 00:36:00* Test Item Value Reference Range Interpretation Comments Monocytes (%) (Auto) (test code = 5905-5) 9.2 4.4-11.3 [facility] CenterEosinophils (%) (Auto)2019-03-21 00:36:00 * Test Item Value Reference Range Interpretation Comments Eosinophils (%) (Auto) (test code = 713-8) 1.6 0.0-6.0 [facility] CenterBasophils (%) (Auto)2019-03-21 00:36:00* Test Item Value Reference Range Interpretation Comments Basophils (%) (Auto) (test code = 706-2) 0.4 0.0-1.0 [facility] CenterIM GRANULOCYTES %2019-03-21 00:36:00* Test Item Value Reference Range Interpretation Comments IM GRANULOCYTES % (test code = IM GRANULOCYTES %) 0.9 0.0- 1.0 [facility] CenterNeutrophils # (Auto)2019-03-21 00:36:00* Test Item Value Reference Range Interpretation Comments Neutrophils # (Auto) (test code = 751-8) 3.8 2.1-6.9 [facility] CenterLymphocytes # (Auto)2019-03-21 00:36:00* Test Item Value Reference Range Interpretation Comments Lymphocytes # (Auto) (test code = 45612-7) 1.1 1.0-3.2 [facility] CenterMonocytes # (Auto)2019-03-21 00:36:00* Test Item Value Reference Range Interpretation Comments Monocytes # (Auto) (test code = 742-7) 0.5 0.2-0.8 [facility] CenterEosinophils # (Auto)2019-03-21 00:36:00* Test Item Value Reference Range Interpretation Comments Eosinophils # (Auto) (test code = 711-2) 0.1 0.0-0.4 [facility] CenterBasophils # (Auto)2019-03-21 00:36:00* Test Item Value Reference Range Interpretation Comments Basophils # (Auto) (test code = 704-7) 0.0 0.0-0.1 [facility] CenterAbsolute Immature Granulocyte (auto 2019-03-21 00:36:00* Test Item Value Reference Range Interpretation Comments Absolute Immature Granulocyte (auto (shin t code = Absolute Immature Granulocyte (auto) 0.05 0-0.1 [facility] CenterUrine [id number] 00:27:00* Test Item Value Reference Range Interpretation Comments Urine WBC (test code = 5821-4) >50 0-5 H [facility] CenterUrine XWO9753-63-51 00:27:00* Test Item Value Reference Range Interpretation Comments Urine RBC (test code = 68342-0) >50 0-5 H [facility] CenterUrine Onrpwlke4283-79-66 00:27:00* Test Item Value Reference Range Interpretation Comments Urine Bacteria (test code = 86520-8) MANY NONE H [facility] CenterUrine Epithelial Qeosu1016-76-85 00:27:00 * Test Item Value Reference Range Interpretation Comments Urine Epithelial Cells (test code = 07719-2) FEW NONE [facility] CenterUrine Jwrwv1928-60-01 00:19:00* Test Item Value Reference Range Interpretation Comments Urine Color (test code = 5778-6) REMEDIOS YELLOW H [facility] CenterUrine Ubwyyog6352-47-07 00:19:00* Test Item Value Reference Range Interpretation Comments Urine Clarity (test code = 76888-5) CLOUDY CLEAR H [facility] CenterUrine Specific Qugolxw0936-75-66 00:16:00 * Test Item Value Reference Range Interpretation Comments Urine Specific [place] (test code = 5811-5) 1.025 1.010-1.02 5 [facility] CenterUrine jK4950-28-53 00:16:00* Test Item Value Reference Range Interpretation Comments Urine pH (test code = 51582-9) 6.5 5-7 [facility] CenterU[facility] Leukocyte Arosvwfq9374-70-75 00:16:00* Test Item Value Reference Range Interpretation Comments Urine Leukocyte Esterase (test code = 5799-2) 2+ NEGATIVE H [facility] CenterU[facility] Bjroqcy7118-62-24 00:16:00* Test Item Value Reference Range Interpretation Comments Urine Nitrite (test code = 58371-0) POSITIVE NEGATIVE H [facility] CenterUrine Vdlmpmo6623-20-80 00:16:00* Test Item Value Reference Range Interpretation Comments Urine Protein (test code = 5804-0) 3+ NEGATIVE H [facility] CenterUrine Glucose (UA)2019-03-21 00:16:00* Test Item Value Reference Range Interpretation Comments Urine Glucose (UA) (test code = 2349-9) 1+ NEGATIVE H [facility] Hnspnom2034-99-41 00:16:00* Test Item Value Reference Range Interpretation Comments Urine Ketones (test code = 82255-2) NEGATIVE NEGATIVE [facility] Wwdrpcbyvbrk9593-70-68 00:16:00* Test Item Value Reference Range Interpretation Comments Urine Urobilinogen (test code = 79659-0) 0.2 0.2-1 [facility] Egkcdppiq6013-24-05 00:16:00* Test Item Value Reference Range Interpretation Comments Urine Bilirubin (test code = 1978-6) NEGATIVE NEGATIVE [facility] CenterU[facility] Civgo8877-05-02 00:16:00* Test Item Value Reference Range Interpretation Comments Urine Blood (test code = 07868-1) 4+ NEGATIVE H [facility] Dlxdiiu1175-62-16 11:47:00* Test Item Value Reference Range Interpretation Comments Bedside Glucose (test code = 70669-5) 113 70-120 Meter ID: [id number] [facility] [place] Glucose 2019-02-20 11:47:00* Test Item Value Reference Range Interpretation Comments Bedside Glucose (test code = 14227-4) 113 70-120 Meter ID: [id number] [facility] Shorelineodium Level 2019-02-19 12:01:00* Test Item Value Reference Range Interpretation Comments Sodium Level (test code = 2951-2) 135 136-145 L [facility] CenterPotassium Xaobo4251-10-36 12:01:00* Test Item Value Reference Range Interpretation Comments Potassium Level (test code = 2823-3) 4.4 3.5-5.1 [facility] CenterChloride Skrci3152-00-56 12:01:00* Test Item Value Reference Range Interpretation Comments Chloride Level (test code = 2075-0) 107 98-107 [facility] CenterCarbon Dioxide Pdfne8279-82-97 12:01:00* Test Item Value Reference Range Interpretation Comments Carbon Dioxide Level (test code = 2028-9) 22 22-29 [facility] CenterAnion Odl6651-42-06 12:01:00* Test Item Value Reference Range Interpretation Comments Anion Gap (test code = 64470-2) 10.4 8-16 [facility] CenterBlood Urea Nrwauerp7934-09-94 12:01:00* Test Item Value Reference Range Interpretation Comments Blood Urea Nitrogen (test code = 3094-0) 28 7-26 H [facility] CenterCreatinine2019-12-28 12:01:00* Test Item Value Reference Range Interpretation Comments Creatinine (test code = 2160-0) 3.39 0.72-1.25 H [facility] CenterBUN/Creatinine Qsyuh0492-47-38 12:01:00* Test Item Value Reference Range Interpretation Comments BUN/Creatinine Ratio (test code = 3097-3) 8 6-25 [facility] CenterEstimat Glomerular Filtration Rate 2019-02-19 12:01:00* Test Item Value Reference Range Interpretation Comments Estimat Glomerular Filtration Rate (test code = 067833894) 20 >60 L Ranges were taken from the National Kidney Disease Education Program and the [facility] [employer] literature.Reference ranges:60 or greater: Mgpitx02-64 ( for 3 consecutive months): Chronic kidney disease 15 or less: Kidney failureMethodist Midlothian Medical CenterGlucose Betpw2349-12-52 12:01:00* Test Item Value Reference Range Interpretation Comments Glucose Level (test code = MJC6515) 158 74-118 H [facility] CenterCalcium Cpvek4188-91-27 12:01:00* Test Item Value Reference Range Interpretation Comments Calcium Level (test code = 94263-0) 7.2 8.4-10.2 L [facility] CenterWhite Blood Kekpx0759-98-94 11:43:00* Test Item Value Reference Range Interpretation Comments White Blood Count (test code = 6690-2) 3.62 4.8-10.8 L [facility] CenterRed Blood Yynju6918-18-32 11:43:00* Test Item Value Reference Range Interpretation Comments Red Blood Count (test code = 789-8) 2.84 4.3-5.7 L [facility] CenterHemoglobin2019-12-28 11:43:00* Test Item Value Reference Range Interpretation Comments Hemoglobin (test code = 62179-1) 7.5 14.0-18.0 L [facility] CenterHematocrit2019-12-28 11:43:00* Test Item Value Reference Range Interpretation Comments Hematocrit (test code = 4544-3) 23.2 38.2-49.6 L [facility] CenterMean Corpuscular Evdpuq5408-84-15 11:43:00* Test Item Value Reference Range Interpretation Comments Mean Corpuscular Volume (test code = 787-2) 81.7 81-99 [facility] CenterMean Corpuscular Wrpdcnxcuq9386-19-60 11:43:00* Test Item Value Reference Range Interpretation Comments Mean Corpuscular Hemoglobin (test code = 785-6) 26.4 28-32 L [facility] CenterMean Corpuscular Hemoglobin Concent 2019-02-19 11:43:00* Test Item Value Reference Range Interpretation Comments Mean Corpuscular Hemoglobin Concent (test code = 786-4) 32.3 31-35 [facility] CenterRed Cell Distribution Ghwow5336-74-29 11:43:00* Test Item Value Reference Range Interpretation Comments Red Cell Distribution Width (test code = 84228-2) 15.9 11.7 -14.4 H [facility] CenterPlatelet Xlvfi8098-40-68 11:43:00* Test Item Value Reference Range Interpretation Comments Platelet Count (test code = 777-3) 95 140-360 L [facility] CenterNeutrophils (%) (Auto)2019-02-19 11:43:00 * Test Item Value Reference Range Interpretation Comments Neutrophils (%) (Auto) (test code = 04695-6) 57.5 38.7-80.0 [facility] CenterLymphocytes (%) (Auto)2019-02-19 11:43:00 * Test Item Value Reference Range Interpretation Comments Lymphocytes (%) (Auto) (test code = 736-9) 30.9 18.0-39.1 [facility] CenterMonocytes (%) (Auto)2019-02-19 11:43:00* Test Item Value Reference Range Interpretation Comments Monocytes (%) (Auto) (test code = 5905-5) 6.9 4.4-11.3 [facility] CenterEosinophils (%) (Auto)2019-02-19 11:43:00 * Test Item Value Reference Range Interpretation Comments Eosinophils (%) (Auto) (test code = 713-8) 3.3 0.0-6.0 [facility] CenterBasophils (%) (Auto)2019-02-19 11:43:00* Test Item Value Reference Range Interpretation Comments Basophils (%) (Auto) (test code = 706-2) 0.3 0.0-1.0 [facility] CenterIM GRANULOCYTES %2019-02-19 11:43:00* Test Item Value Reference Range Interpretation Comments IM GRANULOCYTES % (test code = IM GRANULOCYTES %) 1.1 0.0- 1.0 H [facility] CenterNeutrophils # (Auto)2019-02-19 11:43:00* Test Item Value Reference Range Interpretation Comments Neutrophils # (Auto) (test code = 751-8) 2.1 2.1-6.9 [facility] CenterLymphocytes # (Auto)2019-02-19 11:43:00* Test Item Value Reference Range Interpretation Comments Lymphocytes # (Auto) (test code = 33193-8) 1.1 1.0-3.2 [facility] CenterMonocytes # (Auto)2019-02-19 11:43:00* Test Item Value Reference Range Interpretation Comments Monocytes # (Auto) (test code = 742-7) 0.3 0.2-0.8 [facility] CenterEosinophils # (Auto)2019-02-19 11:43:00* Test Item Value Reference Range Interpretation Comments Eosinophils # (Auto) (test code = 711-2) 0.1 0.0-0.4 [facility] CenterBasophils # (Auto)2019-02-19 11:43:00* Test Item Value Reference Range Interpretation Comments Basophils # (Auto) (test code = 704-7) 0.0 0.0-0.1 [facility] CenterAbsolute Immature Granulocyte (auto 2019-02-19 11:43:00* Test Item Value Reference Range Interpretation Comments Absolute Immature Granulocyte (auto (shin t code = Absolute Immature Granulocyte (auto) 0.04 0-0.1 [facility] Cninmxm0738-86-21 07:44:00* Test Item Value Reference Range Interpretation Comments Urine Culture (test code = 630-4) No Result Data Provided [facility] CenterUrine Jdqbglx9412-94-08 07:44:00* Test Item Value Reference Range Interpretation Comments Urine Culture (test code = 630-4) No Result Data Provided [facility] CenterUrine Gfeofly4741-61-75 07:44:00* Test Item Value Reference Range Interpretation Comments Urine Culture (test code = 630-4) No Result Data Provided [facility] CenterUrine Qopsono8142-65-22 07:44:00* Test Item Value Reference Range Interpretation Comments Urine Culture (test code = 630-4) No Result Data Provided [facility] Jjeqdpe0992-50-47 07:44:00* Test Item Value Reference Range Interpretation Comments Urine Culture (test code = 630-4) No Result Data Provided [facility] W/FL LFJSV9578-49-48 15:39:00 [facility] [address] [address] Patient Name: MANJIT LUO MR #: [id number] : 1980 Age/Sex: 38/M Req #: [id number] Adm Physician: CASTRO JALLOH MD Ordered by: CASTRO JALLOH MD Report #: [id number] Location: MED/SURG Room/Bed: [facility] Procedure: [id number] IR/NE PH TUBE REMOVAL W/FL RIGHT Exam [...] 3:41 PM Dictated By: RONNIE GUALLPA MD 531 Transcribed By: TIFFANY on 02/18/19 476 COPY TO: CASTRO JALLOH MD Ldgjocmz7337-35-76 07:06:00* Test Item Value Reference Range Interpretation Comments Ferritin (test code = 2276-4) 23.96 21.81-274.66 [facility] CenterFerritin2019-12-27 07:06:00* Test Item Value Reference Range Interpretation Comments Ferritin (test code = 2276-4) 23.96 21.81-274.66 [facility] CenterIonclara [facility] Vzzptll3024-44-58 06:39:00* Test Item Value Reference Range Interpretation Comments Ionized Calcium (test code = 60974-9) 1.0 1.09-1.30 L [facility] Qrzfphh4764-41-44 06:39:00* Test Item Value Reference Range Interpretation Comments Ionized Calcium (test code = 44825-1) 1.0 1.09-1.30 L [facility] Xlsunji3573-17-96 06:39:00* Test Item Value Reference Range Interpretation Comments Ionized Calcium (test code = 87133-8) 1.0 1.09-1.30 L [facility] Cqtvxrf3854-49-66 06:39:00* Test Item Value Reference Range Interpretation Comments Ionized Calcium (test code = 57903-8) 1.0 1.09-1.30 L [facility] Mpavadt7484-91-01 06:39:00* Test Item Value Reference Range Interpretation Comments Ionized Calcium (test code = 25579-6) 1.0 1.09-1.30 L [facility] CenterPhosphorus Yhaee1209-81-63 08:27:00* Test Item Value Reference Range Interpretation Comments Phosphorus Level (test code = HYE6401) 4.3 2.3-4.7 [facility] CenterAlbumin2019-12-26 08:27:00* Test Item Value Reference Range Interpretation Comments Albumin (test code = 1751-7) 2.4 3.5-5.0 L [facility] CenterPhosphorus Wnorh2130-09-72 08:27:00* Test Item Value Reference Range Interpretation Comments Phosphorus Level (test code = LOQ0518) 4.3 2.3-4.7 [facility] CenterAlbumin2019-12-26 08:27:00* Test Item Value Reference Range Interpretation Comments Albumin (test code = 1751-7) 2.4 3.5-5.0 L [facility] CenterUrine Nlcab3839-26-25 10:43:00* Test Item Value Reference Range Interpretation Comments Urine Color (test code = 5778-6) REMEDIOS YELLOW H [facility] CenterUrine Zdwwveq1292-38-65 10:43:00* Test Item Value Reference Range Interpretation Comments Urine Clarity (test code = 07104-1) CLOUDY CLEAR H [facility] CenterUrine Specific Nobsxyu1490-52-42 10:43:00 * Test Item Value Reference Range Interpretation Comments Urine Specific [place] (test code = 5811-5) 1.020 1.010-1.02 5 [facility] CenterUrine hQ7882-57-58 10:43:00* Test Item Value Reference Range Interpretation Comments Urine pH (test code = 93764-1) 6.5 5-7 [facility] CenterUrine Leukocyte Vfqrrtrk9469-48-19 10:43:00* Test Item Value Reference Range Interpretation Comments Urine Leukocyte Esterase (test code = 5799-2) MODERATE NEGATIVE [facility] CenterUrine Comqtzs2859-94-03 10:43:00* Test Item Value Reference Range Interpretation Comments Urine Nitrite (test code = 07202-1) NEGATIVE NEGATIVE [facility] CenterUrine Leadxur6036-83-86 10:43:00* Test Item Value Reference Range Interpretation Comments Urine Protein (test code = 5804-0) 2+ NEGATIVE H [facility] CenterUrine Glucose (UA)2019-02-16 10:43:00* Test Item Value Reference Range Interpretation Comments Urine Glucose (UA) (test code = 2349-9) NEGATIVE NEGATIVE [facility] CenterUrine Fictnnt6042-03-06 10:43:00* Test Item Value Reference Range Interpretation Comments Urine Ketones (test code = 17648-8) NEGATIVE NEGATIVE [facility] CenterUrine Etehyxiecvqo8767-23-50 10:43:00* Test Item Value Reference Range Interpretation Comments Urine Urobilinogen (test code = 96938-5) 0.2 0.2-1 [facility] CenterUrine Vhcrazmed3559-59-70 10:43:00* Test Item Value Reference Range Interpretation Comments Urine Bilirubin (test code = 1978-6) SMALL NEGATIVE [facility] Imhdz7974-37-25 10:43:00* Test Item Value Reference Range Interpretation Comments Urine Blood (test code = 83855-6) NEGATIVE NEGATIVE [facility] CenterUrine GPK1207-58-42 10:43:00* Test Item Value Reference Range Interpretation Comments Urine WBC (test code = 5821-4) 0-5 0-5 [facility] CenterUrine RJQ2569-97-29 10:43:00* Test Item Value Reference Range Interpretation Comments Urine RBC (test code = 95552-7) 0-5 0-5 [facility] Fkbfiggy5982-50-69 10:43:00* Test Item Value Reference Range Interpretation Comments Urine Bacteria (test code = 53868-0) RARE NONE [facility] CenterUrine Epithelial Ntgxg3160-53-80 10:43:00 * Test Item Value Reference Range Interpretation Comments Urine Epithelial Cells (test code = 49776-3) FEW NONE [facility] CenterBacterial urine egeyxkm8819-31-14 09:30:00* Test Item Value Reference Range Interpretation Comments Urine Culture (test code = 630-4) STAPHYLOCOCCUS AUREUS [facility] CenterBacteria urine ocujqvs6452-54-66 09:30:00* Test Item Value Reference Range Interpretation Comments Urine Culture (test code = 630-4) STAPHYLOCOCCUS AUREUS [facility] CenterMagnesium Nxymz7898-42-19 06:58:00* Test Item Value Reference Range Interpretation Comments Magnesium Level (test code = 68269-2) 1.3 1.3-2.1 [facility] CenterMagnesium Lgprg3849-08-67 06:58:00* Test Item Value Reference Range Interpretation Comments Magnesium Level (test code = 90996-6) 1.3 1.3-2.1 [facility] CenterMagnesium Dyizu9581-30-65 06:58:00* Test Item Value Reference Range Interpretation Comments Magnesium Level (test code = 86619-1) 1.3 1.3-2.1 [facility]IR VXMWAGL0296-75-81 16:41:00 [facility] [address] [address] Patient Name: MANJIT LUO MR #: [id number] : 1980 Age/Sex: 38/M Req #: [id number] Adm Physician: CASTRO JALLOH MD Ordered by: CASTRO JALLOH MD Report #: [id number] Location: MED/SURG Room/Bed: 110 Procedure: 1645-5820 DX/IR CONSULT Exam Date: Exam Time: REPORT [...] urology. PROCEDURE SUMMARY - Target organ: Unilateral agdaagux kidney - Image-guided placement of genitour inary [...] ribed By: TIFFANY on 02/15/191645 COPY TO: CASTRO JALLOH MD NEPHRO/URET W IMG/INJ-NEW YAO7286-06-89 16:41:[address] [address] Patient Name: MANJIT LUO MR #: [id number] : 1980 Age/Sex: 38/M Req #: [id number] Adm Physician: CASTRO JALLOH MD Ordered by: CASTRO JALLOH MD Report #: [id number] Location: MED/SURG Room/Bed: [facility] Procedure: [id number] IR/NE PHRO/URET W IMG/INJ-NEW ACC Exam Date: [...] urology. PROCEDURE SUMMARY - Target organ: Unilateral agdaagux kidney - Image-guided pl acement of genitourinary [...] TO: BLANCA JALLOH MD US GUIDANCE FOR ZZFPHZTEG8280-67-04 16:41:[address] [address] Patient Name: MANJIT LUO MR #: [id number] : 1980 Age/Sex: 38/M Req #: [id number] Adm Physician: CASTRO JALLOH MD Ordered by: CASTRO JALLOH MD Report #: [id number] Location: MED/SURG Room/Bed: [facility] Procedure: [id number] US/US GUIDANCE FOR PROCEDURE Exam Date: 02/15/19 Exam Cm e: 1258 REPORT STATUS: Signed ID OCEDURE: Genitourinary catheter placement Procedural Personnel Attending [...] __ PROCEDURE SUMMARY - Target organ: Unilateral agdaagux kidney - Image-g uided placement of genitourinary [...] loss (mL): Less than 10 Standardized report: Mason eterPlacement_v3 Attestation Signer name: Jose F Ferrer MD I attest that I was present for the entire procedure. I reviewed the stored images and agree with the report as written. Signed by: Jose F Ferrer MD on 02/15/2019 4:46 PM Dictated By: JOSE F FERRER MD 45 Transcribed By: TIFFANY on 02/15/191645 COPY TO: CASTRO CESPEDES MD Prothrombin Qhhk2762-68-07 16:06:00* Test Item Value Reference Range Interpretation Comments Prothrombin Time (test code = 5902-2) 14.4 11.9-14.5 [facility] CenterProthromb Time International Ratio 2019-02-15 16:06:00* Test Item Value Reference Range Interpretation Comments Prothromb Time International Ratio (test code = 6301-6) 1.07 Oral Anticoagulant Therapy INR Values:1. Low Intensity Therapy 1.5 - 2.02 . Moderate Intensity Therapy 2.0 - 3.03. High Intensity Therapy(1) 2.5 - 3. 54. High Intensity Therapy(2) 3.0 - 4.05. Panic Value INR > 5.0 [facility] CenterActivated Partial Thromboplast Time 2019-02-15 16:06:00* Test Item Value Reference Range Interpretation Comments Activated Partial Thromboplast Time (test code = 10541-1) 32.7 23.8-35.5 [facility] CenterProthrombin Ybup8717-75-47 16:06:00* Test Item Value Reference Range Interpretation Comments Prothrombin Time (test code = 5902-2) 14.4 11.9-14.5 [facility] CenterProthromb Time International Ratio 2019-02-15 16:06:00* Test Item Value Reference Range Interpretation Comments Prothromb Time International Ratio (test code = 6301-6) 1.07 Oral Anticoagulant Therapy INR Values:1. Low Intensity Therapy 1.5 - 2.02 . Moderate Intensity Therapy 2.0 - 3.03. High Intensity Therapy(1) 2.5 - 3. 54. High Intensity Therapy(2) 3.0 - 4.05. Panic Value INR > 5.0 [facility] CenterActivated Partial Thromboplast Time 2019-02-15 16:06:00* Test Item Value Reference Range Interpretation Comments Activated Partial Thromboplast Time (test code = 88582-7) 32.7 23.8-35.5 [facility] CenterActivated Partial Thromboplast Time 2019-02-15 16:06:00* Test Item Value Reference Range Interpretation Comments Activated Partial Thromboplast Time (test code = 01043-5) 32.7 23.8-35.5 [facility] CenterActivated Partial Thromboplast Time 2019-02-15 16:06:00* Test Item Value Reference Range Interpretation Comments Activated Partial Thromboplast Time (test code = 99088-5) 32.7 23.8-35.5 [facility] CenterActivated Partial Thromboplast Time 2019-02-15 16:06:00* Test Item Value Reference Range Interpretation Comments Activated Partial Thromboplast Time (test code = 95450-6) 32.7 23.8-35.5 [facility] CenterActivated partial thromboplastin time (aPTT) in platelet poor plasma by coagulation nwfmb8715-32-65 14:23:00* Test Item Value Reference Range Interpretation Comments Activated Partial Thromboplast Time (test code = 61596-4) 32.7 23.8-35.5 [facility] CenterRENAL SCAN W/UZOYY4755-22-17 18:29:00 [address] [address] Patient Name: MANJIT LUO MR #: [id number] : 1980 Age/Sex: 38/M Req #: [id number] Adm Physician: Ordered by: CASTRO JALLOH MD Report #: [id number] Location: [place] Room/Bed: Procedure: [id number] NM/RE NAL SCAN W/LASIX Exam Date: 01/14/19 [...] COPY TO: CASTRO JALLOH MD ABDOMEN 2 SPHF9778-25-51 11:34:00 [address] [address] Patient Name: MANJIT LUO MR #: [id number] : 1980 Age/Sex: 38/M Req #: [id number] Adm Physician: Ordered by: LUZ MARINA CURRIE MD Report #: [id number] Location: ER Room/Bed: Procedure: 2 DX/ABDOMEN 2 VIEW Exam Date: 11/11/18 Exam Time: 1 REPORT STATUS: Signed Abd omen, 2 views. [...] PETE MD 34 Transcribed By: TIFFANY on 11/11/18 113 COPY TO: LUZ MARINA CURRIE MD Differential Total Cells Lmjrvex6282-50-83 11:23:00* Test Item Value Reference Range Interpretation Comments Differential Total Cells Counted (test code = Differen tial Total Cells Counted) 100 [facility] CenterNeutrophils % (Manual)2018-11-11 11:23:00 * Test Item Value Reference Range Interpretation Comments Neutrophils % (Manual) (test code = 63096-6) 74 40-74 [facility] CenterLymphocytes % (Manual)2018-11-11 11:23:00 * Test Item Value Reference Range Interpretation Comments Lymphocytes % (Manual) (test code = 737-7) 19 19-48 [facility] CenterMonocytes % (Manual)2018-11-11 11:23:00* Test Item Value Reference Range Interpretation Comments Monocytes % (Manual) (test code = 744-3) 5 3.4-9.0 [facility] CenterEosinophils % (Manual)2018-11-11 11:23:00 * Test Item Value Reference Range Interpretation Comments Eosinophils % (Manual) (test code = 714-6) 2 0-7 [facility] CenterPlatelet Zeluraya1804-60-98 11:23:00* Test Item Value Reference Range Interpretation Comments Platelet Estimate (test code = 89713-9) MODERATELY DECREASED [facility] CenterPlatelet Morphology Mclvhqi1693-98-95 11:23:00* Test Item Value Reference Range Interpretation Comments Platelet Morphology Comment (test code = 47767-8) FEW LARGE NO PLT CLUMPSMethodist Midlothian Medical CenterRed Cell Morphology Comment 2018-11-11 11:23:00* Test Item Value Reference Range Interpretation Comments Red Cell Morphology Comment (test code = 6742-1) NORMAL [facility] CenterDifferential Total Cells Counted 2018-11-11 11:23:00* Test Item Value Reference Range Interpretation Comments Differential Total Cells Counted (test code = Differomar tial Total Cells Counted) 100 [facility] CenterNeutrophils % (Manual)2018-11-11 11:23:00 * Test Item Value Reference Range Interpretation Comments Neutrophils % (Manual) (test code = 52238-2) 74 40-74 [facility] CenterLymphocytes % (Manual)2018-11-11 11:23:00 * Test Item Value Reference Range Interpretation Comments Lymphocytes % (Manual) (test code = 737-7) 19 19-48 [facility] CenterMonocytes % (Manual)2018-11-11 11:23:00* Test Item Value Reference Range Interpretation Comments Monocytes % (Manual) (test code = 744-3) 5 3.4-9.0 [facility] CenterEosinophils % (Manual)2018-11-11 11:23:00 * Test Item Value Reference Range Interpretation Comments Eosinophils % (Manual) (test code = 714-6) 2 0-7 [facility] CenterPlatelet Svusywes1627-09-89 11:23:00* Test Item Value Reference Range Interpretation Comments Platelet Estimate (test code = 47517-3) MODERATELY DECREASED [facility] CenterPlatelet Morphology Tetxqyp9606-01-65 11:23:00* Test Item Value Reference Range Interpretation Comments Platelet Morphology Comment (test code = 41246-3) FEW LARGE NO PLT CLUMPSCHI [facility]bock Heart & Surgical HospitalRed Cell Morphology Comment 2018-11-11 11:23:00* Test Item Value Reference Range Interpretation Comments Red Cell Morphology Comment (test code = 6742-1) NORMAL [facility] CenterDifferential Total Cells Counted 2018-11-11 11:23:00* Test Item Value Reference Range Interpretation Comments Differential Total Cells Counted (test code = Differomar tial Total Cells Counted) 100 [facility] CenterNeutrophils % (Manual)2018-11-11 11:23:00 * Test Item Value Reference Range Interpretation Comments Neutrophils % (Manual) (test code = 27213-8) 74 40-74 [facility] CenterLymphocytes % (Manual)2018-11-11 11:23:00 * Test Item Value Reference Range Interpretation Comments Lymphocytes % (Manual) (test code = 737-7) 19 19-48 [facility] CenterMonocytes % (Manual)2018-11-11 11:23:00* Test Item Value Reference Range Interpretation Comments Monocytes % (Manual) (test code = 744-3) 5 3.4-9.0 [facility] CenterEosinophils % (Manual)2018-11-11 11:23:00 * Test Item Value Reference Range Interpretation Comments Eosinophils % (Manual) (test code = 714-6) 2 0-7 [facility] CenterPlatelet Tvwpoxdx6688-03-66 11:23:00* Test Item Value Reference Range Interpretation Comments Platelet Estimate (test code = 05952-6) MODERATELY DECREASED [facility] CenterPlatelet Morphology Ssvvoma2919-72-87 11:23:00* Test Item Value Reference Range Interpretation Comments Platelet Morphology Comment (test code = 08381-7) FEW LARGE NO PLT CLUMPSMethodist Midlothian Medical CenterRed Cell Morphology Comment 2018-11-11 11:23:00* Test Item Value Reference Range Interpretation Comments Red Cell Morphology Comment (test code = 6742-1) NORMAL [facility] CenterDifferential Total Cells Counted 2018-11-11 11:23:00* Test Item Value Reference Range Interpretation Comments Differential Total Cells Counted (test code = Differen tial Total Cells Counted) 100 [facility] CenterNeutrophils % (Manual)2018-11-11 11:23:00 * Test Item Value Reference Range Interpretation Comments Neutrophils % (Manual) (test code = 81977-1) 74 40-74 [facility] CenterLymphocytes % (Manual)2018-11-11 11:23:00 * Test Item Value Reference Range Interpretation Comments Lymphocytes % (Manual) (test code = 737-7) 19 19-48 [facility] CenterMonocytes % (Manual)2018-11-11 11:23:00* Test Item Value Reference Range Interpretation Comments Monocytes % (Manual) (test code = 744-3) 5 3.4-9.0 [facility] CenterEosinophils % (Manual)2018-11-11 11:23:00 * Test Item Value Reference Range Interpretation Comments Eosinophils % (Manual) (test code = 714-6) 2 0-7 [facility] CenterPlatelet Tqxkeqjm2278-41-43 11:23:00* Test Item Value Reference Range Interpretation Comments Platelet Estimate (test code = 00912-5) MODERATELY DECREASED [facility] CenterPlatelet Morphology Ljtatfi5650-13-21 11:23:00* Test Item Value Reference Range Interpretation Comments Platelet Morphology Comment (test code = 12255-2) FEW LARGE NO PLT CLUMPSMethodist [facility]ian Medical CenterRed Cell Morphology Comment 2018-11-11 11:23:00* Test Item Value Reference Range Interpretation Comments Red Cell Morphology Comment (test code = 6742-1) NORMAL [facility] CenterDifferential Total Cells Counted 2018-11-11 11:23:00* Test Item Value Reference Range Interpretation Comments Differential Total Cells Counted (test code = Differen tial Total Cells Counted) 100 [facility] CenterNeutrophils % (Manual)2018-11-11 11:23:00 * Test Item Value Reference Range Interpretation Comments Neutrophils % (Manual) (test code = 59788-0) 74 40-74 [facility] CenterLymphocytes % (Manual)2018-11-11 11:23:00 * Test Item Value Reference Range Interpretation Comments Lymphocytes % (Manual) (test code = 737-7) [facility] CenterMonocytes % (Manual)2018-11-11 11:23:00* Test Item Value Reference Range Interpretation Comments Monocytes % (Manual) (test code = 744-3) 5 3.4-9.0 [facility] CenterEosinophils % (Manual)2018-11-11 11:23:00 * Test Item Value Reference Range Interpretation Comments Eosinophils % (Manual) (test code = 714-6) 2 0-7 [facility] CenterPlatelet Ajhwccxi3886-73-25 11:23:00* Test Item Value Reference Range Interpretation Comments Platelet Estimate (test code = 66140-2) MODERATELY DECREASED [facility] CenterPlatelet Morphology Gwuujzx8023-60-45 11:23:00* Test Item Value Reference Range Interpretation Comments Platelet Morphology Comment (test code = 76851-7) FEW LARGE NO PLT CLUMPSMethodist [facility]ian Medical CenterRed Cell Morphology Comment 2018-11-11 11:23:00* Test Item Value Reference Range Interpretation Comments Red Cell Morphology Comment (test code = 6742-1) NORMAL [facility] CenterDifferential Total Cells Counted 2018-11-11 11:23:00* Test Item Value Reference Range Interpretation Comments Differential Total Cells Counted (test code = Differen tial Total Cells Counted) 100 [facility] CenterNeutrophils % (Manual)2018-11-11 11:23:00 * Test Item Value Reference Range Interpretation Comments Neutrophils % (Manual) (test code = 21022-8) 74 40-74 [facility] CenterLymphocytes % (Manual)2018-11-11 11:23:00 * Test Item Value Reference Range Interpretation Comments Lymphocytes % (Manual) (test code = 737-7) [facility] CenterMonocytes % (Manual)2018-11-11 11:23:00* Test Item Value Reference Range Interpretation Comments Monocytes % (Manual) (test code = 744-3) 5 3.4-9.0 [facility] CenterEosinophils % (Manual)2018-11-11 11:23:00 * Test Item Value Reference Range Interpretation Comments Eosinophils % (Manual) (test code = 714-6) 2 0-7 [facility] CenterPlatelet Gppsjfnv3462-43-43 11:23:00* Test Item Value Reference Range Interpretation Comments Platelet Estimate (test code = 45103-0) MODERATELY DECREASED [facility] CenterPlatelet Morphology Fnvxpzx7027-96-59 11:23:00* Test Item Value Reference Range Interpretation Comments Platelet Morphology Comment (test code = 06624-0) FEW LARGE NO PLT CLUMPSMethodist [facility] Medical CenterRed Cell Morphology Comment 2018-11-11 11:23:00* Test Item Value Reference Range Interpretation Comments Red Cell Morphology Comment (test code = 6742-1) NORMAL [facility] CenterUrine [id number] 08:27:00* Test Item Value Reference Range Interpretation Comments Urine WBC (test code = 5821-4) 21-50 0-5 H [facility] CenterUrine [id number] 08:27:00* Test Item Value Reference Range Interpretation Comments Urine RBC (test code = 48179-2) 21-50 0-5 H [facility] CenterUrine Hzeljvsa9651-99-06 08:27:00* Test Item Value Reference Range Interpretation Comments Urine Bacteria (test code = 70045-7) RARE NONE [facility] CenterUrine Epithelial Kczjm8060-07-08 08:27:00 * Test Item Value Reference Range Interpretation Comments Urine Epithelial Cells (test code = 12488-8) FEW NONE [facility] CenterUrine Rkmxo1940-34-57 08:20:00* Test Item Value Reference Range Interpretation Comments Urine Color (test code = 5778-6) YELLOW YELLOW [facility] CenterUrine Gkxunte0150-86-79 08:20:00* Test Item Value Reference Range Interpretation Comments Urine Clarity (test code = 62337-7) SL CLOUDY CLEAR H [facility] CenterUrine Specific Yiwpipe4721-94-93 08:20:00 * Test Item Value Reference Range Interpretation Comments Urine Specific [place] (test code = 5811-5) 1.025 1.010-1.02 5 [facility] CenterUrine nG7518-12-74 08:20:00* Test Item Value Reference Range Interpretation Comments Urine pH (test code = 96151-7) 6 5-7 [facility] CenterUrine Leukocyte Ztezinpu9559-67-50 08:20:00* Test Item Value Reference Range Interpretation Comments Urine Leukocyte Esterase (test code = 95724-6) TRACE NEGATIV E H [facility] CenterUrine Yymgqsf3705-42-84 08:20:00* Test Item Value Reference Range Interpretation Comments Urine Nitrite (test code = 64644-7) NEGATIVE NEGATIVE [facility] CenterUrine Kpirmox5594-07-38 08:20:00* Test Item Value Reference Range Interpretation Comments Urine Protein (test code = 59473-7) 3+ NEGATIVE H [facility] Glucose (UA)2018-11-11 08:20:00* Test Item Value Reference Range Interpretation Comments Urine Glucose (UA) (test code = 93019-4) 1+ NEGATIVE H [facility] CenterUrine Ksmxkls0445-19-41 08:20:00* Test Item Value Reference Range Interpretation Comments Urine Ketones (test code = 70113-6) NEGATIVE NEGATIVE [facility] CenterUrine Mwxoszeojgoh9569-58-85 08:20:00* Test Item Value Reference Range Interpretation Comments Urine Urobilinogen (test code = 36051-2) 0.2 0.2-1 [facility] CenterUrine Dfgihmcgy8656-83-10 08:20:00* Test Item Value Reference Range Interpretation Comments Urine Bilirubin (test code = 1977-8) NEGATIVE NEGATIVE [facility] Wrfwn5802-89-65 08:20:00* Test Item Value Reference Range Interpretation Comments Urine Blood (test code = 94577-0) 3+ NEGATIVE [facility] Gxeqz5661-19-67 08:04:00* Test Item Value Reference Range Interpretation Comments Sodium Level (test code = 2951-2) 137 136-145 [facility] CenterPotassium Cqrpz7329-56-95 08:04:00* Test Item Value Reference Range Interpretation Comments Potassium Level (test code = 2823-3) 4.8 3.5-5.1 [facility] CenterChloride Eqsbx0120-98-57 08:04:00* Test Item Value Reference Range Interpretation Comments Chloride Level (test code = 2075-0) 109 98-107 H [facility] CenterCarbon Dioxide Nnejd1531-81-23 08:04:00* Test Item Value Reference Range Interpretation Comments Carbon Dioxide Level (test code = 2028-9) 18 22-29 L [facility] CenterAnion Svo0569-74-43 08:04:00* Test Item Value Reference Range Interpretation Comments Anion Gap (test code = 00483-8) 14.8 8-16 [facility] CenterBlood Urea Lpmseywv4559-42-74 08:04:00* Test Item Value Reference Range Interpretation Comments Blood Urea Nitrogen (test code = 3094-0) 35 7-26 H [facility] CenterCreatinine2019-09-19 08:04:00* Test Item Value Reference Range Interpretation Comments Creatinine (test code = 2160-0) 3.89 0.72-1.25 H [facility] CenterBUN/Creatinine Dlbgy9388-58-17 08:04:00* Test Item Value Reference Range Interpretation Comments BUN/Creatinine Ratio (test code = 3097-3) 9 6-25 [facility] CenterEstimat Glomerular Filtration Rate 2018-11-11 08:04:00* Test Item Value Reference Range Interpretation Comments Estimat Glomerular Filtration Rate (test code = 466308233) 17 >60 L Ranges were taken from the National Kidney Disease Education Program and the [facility] [employer] literature.Reference ranges:60 or greater: Jcmdwk11-64 ( for 3 consecutive months): Chronic kidney disease 15 or less: Kidney failureMethodist Midlothian Medical CenterGlucose Twesh1084-33-11 08:04:00* Test Item Value Reference Range Interpretation Comments Glucose Level (test code = JNT2362) 146 74-118 H [facility] CenterCalcium Qmlbb1579-75-53 08:04:00* Test Item Value Reference Range Interpretation Comments Calcium Level (test code = 69903-2) 9.0 8.4-10.2 [facility] Bupzxqdog2383-91-09 08:04:00* Test Item Value Reference Range Interpretation Comments Total Bilirubin (test code = 1974-2) 0.6 0.2-1.2 [facility] CenterAspartate Amino Transf (AST/SGOT) 2018-11-11 08:04:00* Test Item Value Reference Range Interpretation Comments Aspartate Amino Transf (AST/SGOT) (test code = Aspartate Amino Transf (AST/SGOT)) 14 5-34 [facility] CenterAlanine Aminotransferase (ALT/SGPT) 2018-11-11 08:04:00* Test Item Value Reference Range Interpretation Comments Alanine Aminotransferase (ALT/SGPT) (test code = 1742-6) 9 0-55 [facility] Bqdfkxz9820-00-42 08:04:00* Test Item Value Reference Range Interpretation Comments Total Protein (test code = 2885-2) 7.9 6.5-8.1 [facility] CenterAlbumin2019-09-19 08:04:00* Test Item Value Reference Range Interpretation Comments Albumin (test code = 1751-7) 3.2 3.5-5.0 L [facility] CenterGlobulin2019-09-19 08:04:00* Test Item Value Reference Range Interpretation Comments Globulin (test code = 42025-4) 4.7 2.3-3.5 H [facility] CenterAlbumin/Globulin Lyaus9659-16-43 08:04:00 * Test Item Value Reference Range Interpretation Comments Albumin/Globulin Ratio (test code = 1759-0) 0.7 0.8-2.0 L [facility] CenterAlkaline Fbgtetlwryq8943-89-66 08:04:00* Test Item Value Reference Range Interpretation Comments Alkaline Phosphatase (test code = 6768-6) 202 40-150 H [facility] Ncufjbbtb1384-35-89 08:04:00* Test Item Value Reference Range Interpretation Comments Total Bilirubin (test code = 1974-2) 0.6 0.2-1.2 [facility] CenterAspartate Amino Transf (AST/SGOT) 2018-11-11 08:04:00* Test Item Value Reference Range Interpretation Comments Aspartate Amino Transf (AST/SGOT) (test code = Aspartate Amino Transf (AST/SGOT)) 14 [facility] CenterAlanine Aminotransferase (ALT/SGPT) 2018-11-11 08:04:00* Test Item Value Reference Range Interpretation Comments Alanine Aminotransferase (ALT/SGPT) (test code = 1742-6) 9 0-55 [facility] CenterTotal Cynwzay3139-45-43 08:04:00* Test Item Value Reference Range Interpretation Comments Total Protein (test code = 2885-2) 7.9 6.5-8.1 [facility] CenterGlobulin2019-09-19 08:04:00* Test Item Value Reference Range Interpretation Comments Globulin (test code = 08723-6) 4.7 2.3-3.5 H [facility] CenterAlbumin/Globulin Wsbtp4464-82-79 08:04:00 * Test Item Value Reference Range Interpretation Comments Albumin/Globulin Ratio (test code = 1759-0) 0.7 0.8-2.0 L [facility] CenterAlkaline Jimmlzoxycf1657-02-90 08:04:00* Test Item Value Reference Range Interpretation Comments Alkaline Phosphatase (test code = 6768-6) 202 40-150 H [facility] CenterTotal Qtvsjurry7303-43-57 08:04:00* Test Item Value Reference Range Interpretation Comments Total Bilirubin (test code = 1975-2) 0.6 0.2-1.2 [facility] CenterAspartate Amino Transf (AST/SGOT) 2018-11-11 08:04:00* Test Item Value Reference Range Interpretation Comments Aspartate Amino Transf (AST/SGOT) (test code = Aspartate Amino Transf (AST/SGOT)) 14 [facility] CenterAlanine Aminotransferase (ALT/SGPT) 2018-11-11 08:04:00* Test Item Value Reference Range Interpretation Comments Alanine Aminotransferase (ALT/SGPT) (test code = 1742-6) 9 0-55 [facility] CenterTotal Hxaayew2627-58-76 08:04:00* Test Item Value Reference Range Interpretation Comments Total Protein (test code = 2885-2) 7.9 6.5-8.1 [facility] CenterGlobulin2019-09-19 08:04:00* Test Item Value Reference Range Interpretation Comments Globulin (test code = 98134-6) 4.7 2.3-3.5 H [facility] CenterAlbumin/Globulin Awnao4225-10-20 08:04:00 * Test Item Value Reference Range Interpretation Comments Albumin/Globulin Ratio (test code = 1759-0) 0.7 0.8-2.0 L [facility] CenterAlkaline Jkwlmnrzzrm8341-13-78 08:04:00* Test Item Value Reference Range Interpretation Comments Alkaline Phosphatase (test code = 6768-6) 202 40-150 H [facility] CenterWhite Blood Zvwcc4532-39-42 07:49:00* Test Item Value Reference Range Interpretation Comments White Blood Count (test code = 6690-2) 6.09 4.8-10.8 [facility] CenterRed Blood Hiaul5837-75-15 07:49:00* Test Item Value Reference Range Interpretation Comments Red Blood Count (test code = 789-8) 4.56 4.3-5.7 [facility] CenterHemoglobin2019-09-19 07:49:00* Test Item Value Reference Range Interpretation Comments Hemoglobin (test code = 94253-4) 12.7 14.0-18.0 L [facility] CenterHematocrit2019-09-19 07:49:00* Test Item Value Reference Range Interpretation Comments Hematocrit (test code = 4544-3) 38.6 38.2-49.6 [facility] CenterMean Corpuscular Jymlxy7151-30-05 07:49:00* Test Item Value Reference Range Interpretation Comments Mean Corpuscular Volume (test code = 787-2) 84.6 81-99 [facility] CenterMean Corpuscular Qamzfkqaka3988-36-65 07:49:00* Test Item Value Reference Range Interpretation Comments Mean Corpuscular Hemoglobin (test code = 785-6) 27.9 28-32 L [facility] CenterMean Corpuscular Hemoglobin Concent 2018-11-11 07:49:00* Test Item Value Reference Range Interpretation Comments Mean Corpuscular Hemoglobin Concent (test code = 786-4) 32.9 31-35 [facility] CenterRed Cell Distribution Mdzvb8283-95-55 07:49:00* Test Item Value Reference Range Interpretation Comments Red Cell Distribution Width (test code = 38227-2) 15.5 11.7 -14.4 H [facility] CenterPlatelet Uxybj9875-29-68 07:49:00* Test Item Value Reference Range Interpretation Comments Platelet Count (test code = 777-3) 140 140-360 [facility] CenterNeutrophils (%) (Auto)2018-11-11 07:49:00 * Test Item Value Reference Range Interpretation Comments Neutrophils (%) (Auto) (test code = 31054-4) 74.1 38.7-80.0 [facility] CenterLymphocytes (%) (Auto)2018-11-11 07:49:00 * Test Item Value Reference Range Interpretation Comments Lymphocytes (%) (Auto) (test code = 736-9) 18.2 18.0-39.1 [facility] CenterMonocytes (%) (Auto)2018-11-11 07:49:00* Test Item Value Reference Range Interpretation Comments Monocytes (%) (Auto) (test code = 5905-5) 4.9 4.4-11.3 [facility] CenterEosinophils (%) (Auto)2018-11-11 07:49:00 * Test Item Value Reference Range Interpretation Comments Eosinophils (%) (Auto) (test code = 713-8) 2.0 0.0-6.0 [facility] CenterBasophils (%) (Auto)2018-11-11 07:49:00* Test Item Value Reference Range Interpretation Comments Basophils (%) (Auto) (test code = 706-2) 0.3 0.0-1.0 [facility] CenterIM GRANULOCYTES %2018-11-11 07:49:00* Test Item Value Reference Range Interpretation Comments IM GRANULOCYTES % (test code = IM GRANULOCYTES %) 0.5 0.0- 1.0 [facility] CenterNeutrophils # (Auto)2018-11-11 07:49:00* Test Item Value Reference Range Interpretation Comments Neutrophils # (Auto) (test code = 751-8) 4.5 2.1-6.9 [facility] CenterLymphocytes # (Auto)2018-11-11 07:49:00* Test Item Value Reference Range Interpretation Comments Lymphocytes # (Auto) (test code = 61760-6) 1.1 1.0-3.2 [facility] CenterMonocytes # (Auto)2018-11-11 07:49:00* Test Item Value Reference Range Interpretation Comments Monocytes # (Auto) (test code = 742-7) 0.3 0.2-0.8 [facility] CenterEosinophils # (Auto)2018-11-11 07:49:00* Test Item Value Reference Range Interpretation Comments Eosinophils # (Auto) (test code = 711-2) 0.1 0.0-0.4 [facility] CenterBasophils # (Auto)2018-11-11 07:49:00* Test Item Value Reference Range Interpretation Comments Basophils # (Auto) (test code = 704-7) 0.0 0.0-0.1 [facility] CenterAbsolute Immature Granulocyte (auto 2018-11-11 07:49:00* Test Item Value Reference Range Interpretation Comments Absolute Immature Granulocyte (auto (shin t code = Absolute Immature Granulocyte (auto) 0.03 0-0.1 [facility] CenterFluoroscopic procedure less than one hour ajtbnlou3611-73-96 07:22:00* Test Item Value Reference Range Interpretation Comments Differential Total Cells Counted (test code = Differen tial Total Cells Counted) 100 [facility] CenterManual blood neutrophils/100 leukocytes 2018-11-11 07:22:00* Test Item Value Reference Range Interpretation Comments Neutrophils % (Manual) (test code = 50681-4) 74 40-74 [facility] blood lymphocytes/100 leukocytes 2018-11-11 07:22:00* Test Item Value Reference Range Interpretation Comments Lymphocytes % (Manual) (test code = 737-7) - [facility] blood monocytes/100 leukocytes 2018-11-11 07:22:00* Test Item Value Reference Range Interpretation Comments Monocytes % (Manual) (test code = 744-3) 5 3.4-9.0 [facility] blood eosinophil count as percentage of total eybqbrboav4484-58-91 07:22:00* Test Item Value Reference Range Interpretation Comments Eosinophils % (Manual) (test code = 714-6) 2 0-7 [facility] CenterBlood platelets count by estimate (number/volume)2018-11-11 07:22:00* Test Item Value Reference Range Interpretation Comments Platelet Estimate (test code = 77723-5) MODERATELY DECREASED [facility] CenterPlatelet vrdodxkvbx4827-31-26 07:22:00* Test Item Value Reference Range Interpretation Comments Platelet Morphology Comment (test code = 87955-5) FEW LARGE NO PLT CLUMPSMethodist Midlothian Medical CenterRB ktyxwaplrn8894-35-56 07:22:00* Test Item Value Reference Range Interpretation Comments Red Cell Morphology Comment (test code = 6742-1) NORMAL [facility] CenterFluoroscopic procedure less than one hour cfjfwtkv1728-77-18 07:22:00* Test Item Value Reference Range Interpretation Comments Differential Total Cells Counted (test code = Differomar tial Total Cells Counted) 100 [facility] blood neutrophils/100 leukocytes 2018-11-11 07:22:00* Test Item Value Reference Range Interpretation Comments Neutrophils % (Manual) (test code = 16988-8) 74 40-74 [facility] blood lymphocytes/100 leukocytes 2018-11-11 07:22:00* Test Item Value Reference Range Interpretation Comments Lymphocytes % (Manual) (test code = 737-7) [facility] blood monocytes/100 leukocytes 2018-11-11 07:22:00* Test Item Value Reference Range Interpretation Comments Monocytes % (Manual) (test code = 744-3) 5 3.4-9.0 [facility] CenterManual blood eosinophil count as percentage of total rpkjefyjcb5317-90-94 07:22:00* Test Item Value Reference Range Interpretation Comments Eosinophils % (Manual) (test code = 714-6) 2 0-7 [facility] CenterBlood platelets count by estimate (number/volume)2018-11-11 07:22:00* Test Item Value Reference Range Interpretation Comments Platelet Estimate (test code = 32759-2) MODERATELY DECREASED [facility] CenterPlatelet ripxzrkmnz7938-13-20 07:22:00* Test Item Value Reference Range Interpretation Comments Platelet Morphology Comment (test code = 51610-3) FEW LARGE NO PLT CLUMPSMethodist Midlothian Medical CenterRBC qtcgvxfkdj9053-01-50 07:22:00* Test Item Value Reference Range Interpretation Comments Red Cell Morphology Comment (test code = 6742-1) NORMAL [facility] Zagthgy5987-15-01 07:37:00* Test Item Value Reference Range Interpretation Comments Bedside Glucose (test code = 33176-4) 160 70-120 H Meter ID: [id number] [place] Glucose 2018-11-08 07:37:00* Test Item Value Reference Range Interpretation Comments Bedside Glucose (test code = 37729-1) 160 70-120 H Meter ID: [id number] Midlothian Medical CenterDifferential Total Cells Nwwusdc0150-02-70 06:23:00* Test Item Value Reference Range Interpretation Comments Differential Total Cells Counted (test code = Differomar tial Total Cells Counted) 100 [facility] CenterNeutrophils % (Manual)2018-11-08 06:23:00 * Test Item Value Reference Range Interpretation Comments Neutrophils % (Manual) (test code = 81741-3) 71 40-74 [facility] CenterLymphocytes % (Manual)2018-11-08 06:23:00 * Test Item Value Reference Range Interpretation Comments Lymphocytes % (Manual) (test code = 737-7) 17 19-48 L [facility] CenterMonocytes % (Manual)2018-11-08 06:23:00* Test Item Value Reference Range Interpretation Comments Monocytes % (Manual) (test code = 744-3) 9 3.4-9.0 [facility] CenterEosinophils % (Manual)2018-11-08 06:23:00 * Test Item Value Reference Range Interpretation Comments Eosinophils % (Manual) (test code = 714-6) 3 0-7 [facility] CenterPlatelet Ivckdhmv0591-73-72 06:23:00* Test Item Value Reference Range Interpretation Comments Platelet Estimate (test code = 59548-6) MARKEDLY INCREASED [facility] CenterPlatelet Morphology Lsiyfok1009-69-20 06:23:00* Test Item Value Reference Range Interpretation Comments Platelet Morphology Comment (test code = 12933-1) FEW LARGE [facility] CenterRed Cell Morphology Jgrqgap2558-20-31 06:23:00* Test Item Value Reference Range Interpretation Comments Red Cell Morphology Comment (test code = 6742-1) [facility] Qskvm2893-15-43 05:37:00* Test Item Value Reference Range Interpretation Comments Sodium Level (test code = 2951-2) 135 136-145 L [facility] CenterPotassium Gevfc7237-79-82 05:37:00* Test Item Value Reference Range Interpretation Comments Potassium Level (test code = 2823-3) 4.6 3.5-5.1 [facility] CenterChloride Scipz2532-01-84 05:37:00* Test Item Value Reference Range Interpretation Comments Chloride Level (test code = 2075-0) 106 98-107 [facility] CenterCarbon Dioxide Qgieu1952-74-03 05:37:00* Test Item Value Reference Range Interpretation Comments Carbon Dioxide Level (test code = 2028-9) 19 22-29 L [facility] CenterAnion Yvb2885-86-24 05:37:00* Test Item Value Reference Range Interpretation Comments Anion Gap (test code = 86043-7) 14.6 8-16 [facility] CenterBlood Urea Mpkhzlew1751-84-88 05:37:00* Test Item Value Reference Range Interpretation Comments Blood Urea Nitrogen (test code = 3094-0) 30 7-26 H [facility] CenterCreatinine2019-09-16 05:37:00* Test Item Value Reference Range Interpretation Comments Creatinine (test code = 2160-0) 3.35 0.72-1.25 H [facility] CenterBUN/Creatinine Fwsaj7968-01-21 05:37:00* Test Item Value Reference Range Interpretation Comments BUN/Creatinine Ratio (test code = 3097-3) 9 6-25 [facility] CenterEstimat Glomerular Filtration Rate 2018-11-08 05:37:00* Test Item Value Reference Range Interpretation Comments Estimat Glomerular Filtration Rate (test code = 248536999) 21 >60 L Ranges were taken from the National Kidney Disease Education Program and the [facility] Kidney Foundation literature.Reference ranges:60 or greater: Tgjhfo25-42 ( for 3 consecutive months): Chronic kidney disease 15 or less: Kidney failureMethodist [facility]lothian Medical CenterGlucose Auhav5190-10-14 05:37:00* Test Item Value Reference Range Interpretation Comments Glucose Level (test code = IMS2024) 125 74-118 H [facility] CenterCalcium Ynouz3944-48-76 05:37:00* Test Item Value Reference Range Interpretation Comments Calcium Level (test code = 84245-4) 8.4 8.4-10.2 [facility] CenterWhite Blood Fnban5718-33-79 05:26:00* Test Item Value Reference Range Interpretation Comments White Blood Count (test code = 6690-2) 4.49 4.8-10.8 L [facility] CenterRed Blood Buagz8844-52-10 05:26:00* Test Item Value Reference Range Interpretation Comments Red Blood Count (test code = 789-8) 3.94 4.3-5.7 L [facility] CenterHemoglobin2019-09-16 05:26:00* Test Item Value Reference Range Interpretation Comments Hemoglobin (test code = 45463-5) 11.0 14.0-18.0 L [facility] CenterHematocrit2019-09-16 05:26:00* Test Item Value Reference Range Interpretation Comments Hematocrit (test code = 4544-3) 34.1 38.2-49.6 L [facility] CenterMean Corpuscular Cfjtkd1925-35-61 05:26:00* Test Item Value Reference Range Interpretation Comments Mean Corpuscular Volume (test code = 787-2) 86.5 81-99 [facility] CenterMean Corpuscular Xjwiaonqtv1530-70-83 05:26:00* Test Item Value Reference Range Interpretation Comments Mean Corpuscular Hemoglobin (test code = 785-6) 27.9 28-32 L [facility] CenterMean Corpuscular Hemoglobin Concent 2018-11-08 05:26:00* Test Item Value Reference Range Interpretation Comments Mean Corpuscular Hemoglobin Concent (test code = 786-4) 32.3 31-35 [facility] CenterRed Cell Distribution Ojsng6931-77-81 05:26:00* Test Item Value Reference Range Interpretation Comments Red Cell Distribution Width (test code = 98161-2) 15.9 11.7 -14.4 H [facility] CenterPlatelet Cnnrc8891-83-90 05:26:00* Test Item Value Reference Range Interpretation Comments Platelet Count (test code = 777-3) 101 140-360 L [facility] CenterNeutrophils (%) (Auto)2018-11-08 05:26:00 * Test Item Value Reference Range Interpretation Comments Neutrophils (%) (Auto) (test code = 95554-9) 59.0 38.7-80.0 [facility] CenterLymphocytes (%) (Auto)2018-11-08 05:26:00 * Test Item Value Reference Range Interpretation Comments Lymphocytes (%) (Auto) (test code = 736-9) 27.4 18.0-39.1 [facility] CenterMonocytes (%) (Auto)2018-11-08 05:26:00* Test Item Value Reference Range Interpretation Comments Monocytes (%) (Auto) (test code = 5905-5) 7.6 4.4-11.3 [facility] CenterEosinophils (%) (Auto)2018-11-08 05:26:00 * Test Item Value Reference Range Interpretation Comments Eosinophils (%) (Auto) (test code = 713-8) 4.9 0.0-6.0 [facility] CenterBasophils (%) (Auto)2018-11-08 05:26:00* Test Item Value Reference Range Interpretation Comments Basophils (%) (Auto) (test code = 706-2) 0.7 0.0-1.0 [facility] CenterIM GRANULOCYTES %2018-11-08 05:26:00* Test Item Value Reference Range Interpretation Comments IM GRANULOCYTES % (test code = IM GRANULOCYTES %) 0.4 0.0- 1.0 [facility] CenterNeutrophils # (Auto)2018-11-08 05:26:00* Test Item Value Reference Range Interpretation Comments Neutrophils # (Auto) (test code = 751-8) 2.7 2.1-6.9 [facility] CenterLymphocytes # (Auto)2018-11-08 05:26:00* Test Item Value Reference Range Interpretation Comments Lymphocytes # (Auto) (test code = 87443-2) 1.2 1.0-3.2 [facility] CenterMonocytes # (Auto)2018-11-08 05:26:00* Test Item Value Reference Range Interpretation Comments Monocytes # (Auto) (test code = 742-7) 0.3 0.2-0.8 [facility] CenterEosinophils # (Auto)2018-11-08 05:26:00* Test Item Value Reference Range Interpretation Comments Eosinophils # (Auto) (test code = 711-2) 0.2 0.0-0.4 [facility] CenterBasophils # (Auto)2018-11-08 05:26:00* Test Item Value Reference Range Interpretation Comments Basophils # (Auto) (test code = 704-7) 0.0 0.0-0.1 [facility] CenterAbsolute Immature Granulocyte (auto 2018-11-08 05:26:00* Test Item Value Reference Range Interpretation Comments Absolute Immature Granulocyte (auto (sihn t code = Absolute Immature Granulocyte (auto) 0.02 0-0.1 [facility] CenterMagnesium Jpnwi6058-41-73 07:21:00* Test Item Value Reference Range Interpretation Comments Magnesium Level (test code = 04545-8) 1.5 1.3-2.1 [facility] CenterMagnesium Awgtm0069-73-99 07:21:00* Test Item Value Reference Range Interpretation Comments Magnesium Level (test code = 29292-7) 1.5 1.3-2.1 [facility] CenterTotal Xeroilkvs5504-75-81 08:37:00* Test Item Value Reference Range Interpretation Comments Total Bilirubin (test code = 1975-2) 0.5 0.2-1.2 [facility] CenterAspartate Amino Transf (AST/SGOT) 2018-11-05 08:37:00* Test Item Value Reference Range Interpretation Comments Aspartate Amino Transf (AST/SGOT) (test code = Aspartate Amino Transf (AST/SGOT)) 12 5-34 [facility] CenterAlanine Aminotransferase (ALT/SGPT) 2018-11-05 08:37:00* Test Item Value Reference Range Interpretation Comments Alanine Aminotransferase (ALT/SGPT) (test code = 1742-6) 14 0-55 [facility] CenterTotal Kovcyjd8662-58-82 08:37:00* Test Item Value Reference Range Interpretation Comments Total Protein (test code = 2885-2) 7.3 6.5-8.1 [facility] CenterAlbumin2019-09-13 08:37:00* Test Item Value Reference Range Interpretation Comments Albumin (test code = 1751-7) 3.0 3.5-5.0 L [facility] CenterGlobulin2019-09-13 08:37:00* Test Item Value Reference Range Interpretation Comments Globulin (test code = 76854-9) 4.3 2.3-3.5 H [facility] CenterAlbumin/Globulin Hracw8325-87-49 08:37:00 * Test Item Value Reference Range Interpretation Comments Albumin/Globulin Ratio (test code = 1759-0) 0.7 0.8-2.0 L [facility] CenterAlkaline Ddqztcinwdl6384-94-98 08:37:00* Test Item Value Reference Range Interpretation Comments Alkaline Phosphatase (test code = 6768-6) 200 40-150 [facility] Btfjhts0214-56-10 05:38:00* Test Item Value Reference Range Interpretation Comments Blood Culture (test code = 04816617) NO GROWTH AFTER 5 DAYS, FINAL REPORT [facility] Ywliyvr3811-36-61 05:38:00* Test Item Value Reference Range Interpretation Comments Blood Culture (test code = 33221348) NO GROWTH AFTER 5 DAYS, FINAL REPORT [facility] Xuxfkga4327-73-72 05:38:00* Test Item Value Reference Range Interpretation Comments Blood Culture (test code = 06867056) NO GROWTH AFTER 5 DAYS, FINAL REPORT [facility] Ezsninh9084-98-84 05:38:00* Test Item Value Reference Range Interpretation Comments Blood Culture (test code = 71636874) NO GROWTH AFTER 5 DAYS, FINAL REPORT [facility] CenterPhosphorus Iolya7223-09-11 05:51:00* Test Item Value Reference Range Interpretation Comments Phosphorus Level (test code = KIW5959) 5.4 2.3-4.7 H [facility] CenterPhosphorus Yyncc8215-11-61 05:51:00* Test Item Value Reference Range Interpretation Comments Phosphorus Level (test code = JQM1006) 5.4 2.3-4.7 H [facility] CenterIron Zvpxh2375-36-55 06:18:00* Test Item Value Reference Range Interpretation Comments Iron Level (test code = 2498-4) 50 65-175 L [facility] CenterTotal Iron Binding Dxuwuvlf5345-57-29 06:18:00* Test Item Value Reference Range Interpretation Comments Total Iron Binding Capacity (test code = 2500-7) 232 261-4 78 L [facility] CenterPercent Iron Wrvsfxdanq9239-76-93 06:18:00* Test Item Value Reference Range Interpretation Comments Percent Iron Saturation (test code = 2502-3) 22 15-50 [facility]2019-09-09 06:18:00* Test Item Value Reference Range Interpretation Comments Transferrin (test code = 3034-6) 166 174-364 L [facility]2019-09-09 06:18:00* Test Item Value Reference Range Interpretation Comments Iron Level (test code = 2498-4) 50 65-175 L [facility] Iron Binding Cueecpby0742-45-56 06:18:00* Test Item Value Reference Range Interpretation Comments Total Iron Binding Capacity (test code = 2500-7) 232 261-4 78 L [facility] Iron Mushyaafdm5942-19-40 06:18:00* Test Item Value Reference Range Interpretation Comments Percent Iron Saturation (test code = 2502-3) 22 15-50 [facility]2019-09-09 06:18:00* Test Item Value Reference Range Interpretation Comments Transferrin (test code = 3034-6) 166 174-364 L [facility]2019-09-09 06:18:00* Test Item Value Reference Range Interpretation Comments Iron Level (test code = 2498-4) 50 65-175 L [facility] Iron Binding Nciclttd7894-53-65 06:18:00* Test Item Value Reference Range Interpretation Comments Total Iron Binding Capacity (test code = 2500-7) 232 261-4 78 L [facility] Iron Gkavyjuhgu8875-10-72 06:18:00* Test Item Value Reference Range Interpretation Comments Percent Iron Saturation (test code = 2502-3) 22 15-50 [facility]2019-09-09 06:18:00* Test Item Value Reference Range Interpretation Comments Transferrin (test code = 3034-6) 166 174-364 L [facility]2019-09-09 06:18:00* Test Item Value Reference Range Interpretation Comments Iron Level (test code = 2498-4) 50 65-175 L [facility] Iron Binding Stfezsey3711-95-20 06:18:00* Test Item Value Reference Range Interpretation Comments Total Iron Binding Capacity (test code = 2500-7) 232 261-4 78 L [facility] CenterPercent Iron Qqhlrabmam9842-28-75 06:18:00* Test Item Value Reference Range Interpretation Comments Percent Iron Saturation (test code = 2502-3) 22 15-50 [facility] CenterTransferrin2019-09-09 06:18:00* Test Item Value Reference Range Interpretation Comments Transferrin (test code = 3034-6) 166 174-364 L [facility] CenterUrine UUA9553-03-59 15:35:00* Test Item Value Reference Range Interpretation Comments Urine WBC (test code = 5821-4) >50 0-5 H [facility] CenterUrine RHA4525-25-24 15:35:00* Test Item Value Reference Range Interpretation Comments Urine RBC (test code = 35141-4) >50 0-5 H [facility] CenterUrine Tkgwmnqp7990-33-56 15:35:00* Test Item Value Reference Range Interpretation Comments Urine Bacteria (test code = 29760-1) MANY NONE H [facility] CenterUrine Epithelial Najdv2271-85-26 15:35:00 * Test Item Value Reference Range Interpretation Comments Urine Epithelial Cells (test code = 13944-4) MANY NONE [facility] CenterUrine Usrrz5724-94-01 15:11:00* Test Item Value Reference Range Interpretation Comments Urine Color (test code = 5778-6) YELLOW YELLOW [facility] CenterUrine Ukfsuaq1961-62-96 15:11:00* Test Item Value Reference Range Interpretation Comments Urine Clarity (test code = 63742-5) SL CLOUDY CLEAR H [facility] CenterUrine Specific Chnycvf6868-63-36 15:11:00 * Test Item Value Reference Range Interpretation Comments Urine Specific [place] (test code = 5811-5) 1.025 1.010-1.02 5 [facility] CenterUrine vI4423-97-90 15:11:00* Test Item Value Reference Range Interpretation Comments Urine pH (test code = 38090-4) 6 5-7 [facility] CenterUrine Leukocyte Zwmtfnae5814-78-27 15:11:00* Test Item Value Reference Range Interpretation Comments Urine Leukocyte Esterase (test code = 17356-6) NEGATIVE NEGATIV E [facility] CenterUrine Cevhcsf6796-59-53 15:11:00* Test Item Value Reference Range Interpretation Comments Urine Nitrite (test code = 58502-4) NEGATIVE NEGATIVE [facility] CenterUrine Nxmzeon4588-18-10 15:11:00* Test Item Value Reference Range Interpretation Comments Urine Protein (test code = 86120-9) 3+ NEGATIVE H [facility] CenterUrine Glucose (UA)2018-10-31 15:11:00* Test Item Value Reference Range Interpretation Comments Urine Glucose (UA) (test code = 29714-5) NEGATIVE NEGATIVE [facility] CenterUrine Yjgpeld9007-73-14 15:11:00* Test Item Value Reference Range Interpretation Comments Urine Ketones (test code = 09845-6) NEGATIVE NEGATIVE [facility] CenterUrine Enqsgssvsghg5379-04-51 15:11:00* Test Item Value Reference Range Interpretation Comments Urine Urobilinogen (test code = 56875-1) 0.2 0.2-1 [facility] CenterUrine Rmlvjxkwu3090-33-02 15:11:00* Test Item Value Reference Range Interpretation Comments Urine Bilirubin (test code = 1977-8) NEGATIVE NEGATIVE [facility] CenterUrine Sxjrm1178-53-43 15:11:00* Test Item Value Reference Range Interpretation Comments Urine Blood (test code = 74049-6) 3+ NEGATIVE [facility] CenterCreatine Kinase UO7921-48-38 08:40:00* Test Item Value Reference Range Interpretation Comments Creatine Kinase MB (test code = 29567-5) 1.60 0-5.0 [facility] CenterTroponin Q7748-14-98 08:40:00* Test Item Value Reference Range Interpretation Comments Troponin I (test code = YMT9350) 0.008 0-0.300 [facility] CenterCreatine Kinase CO6713-82-08 08:40:00* Test Item Value Reference Range Interpretation Comments Creatine Kinase MB (test code = 41628-7) 1.60 0-5.0 [place] 18448019-09-08 08:40:00* Test Item Value Reference Range Interpretation Comments Troponin I (test code = CXV8083) 0.008 0-0.300 [facility] CenterCreatine Kinase LB3721-20-52 08:40:00* Test Item Value Reference Range Interpretation Comments Creatine Kinase MB (test code = 54903-7) 1.60 0-5.0 [place] 18448019-09-08 08:40:00* Test Item Value Reference Range Interpretation Comments Troponin I (test code = JLS8328) 0.008 0-0.300 [facility] CenterCreatine Kinase EV7745-67-43 08:40:00* Test Item Value Reference Range Interpretation Comments Creatine Kinase MB (test code = 95248-1) 1.60 0-5.0 [place] 18448019-09-08 08:40:00* Test Item Value Reference Range Interpretation Comments Troponin I (test code = RUT2429) 0.008 0-0.300 [facility] CenterCreatine Kinase ES3717-35-78 08:40:00* Test Item Value Reference Range Interpretation Comments Creatine Kinase MB (test code = 83127-9) 1.60 0-5.0 [place] 18448019-09-08 08:40:00* Test Item Value Reference Range Interpretation Comments Troponin I (test code = ISK1675) 0.008 0-0.300 [facility] CenterCreatine Kinase WM7889-59-42 08:40:00* Test Item Value Reference Range Interpretation Comments Creatine Kinase MB (test code = 97849-2) 1.60 0-5.0 [place] 18448019-09-08 08:40:00* Test Item Value Reference Range Interpretation Comments Troponin I (test code = 15350-5) 0.008 0-0.300 [facility] CenterCreatine Kinase TQ6823-28-24 08:40:00* Test Item Value Reference Range Interpretation Comments Creatine Kinase MB (test code = 40494-5) 1.60 0-5.0 [facility] CenterTroponin J5890-89-25 08:40:00* Test Item Value Reference Range Interpretation Comments Troponin I (test code = 93709-4) 0.008 0-0.300 [facility] CenterCreatine Aillsu7011-59-86 07:55:00* Test Item Value Reference Range Interpretation Comments Creatine Kinase (test code = 2157-6) 266 30-200 H [facility] CenterCreatine Uqjwrk7543-11-73 07:55:00* Test Item Value Reference Range Interpretation Comments Creatine Kinase (test code = 2157-6) 266 30-200 H [facility] CenterCreatine Zrcucs3649-43-40 07:55:00* Test Item Value Reference Range Interpretation Comments Creatine Kinase (test code = 2157-6) 266 30-200 H [facility] CenterCreatine Hfwjtz9571-85-76 07:55:00* Test Item Value Reference Range Interpretation Comments Creatine Kinase (test code = 2157-6) 266 30-200 H [facility] CenterCreatine Wtwnva0406-21-11 07:55:00* Test Item Value Reference Range Interpretation Comments Creatine Kinase (test code = 2157-6) 266 30-200 H [facility] CenterCreatine Qzsdqo7169-77-94 07:55:00* Test Item Value Reference Range Interpretation Comments Creatine Kinase (test code = 2157-6) 266 30-200 H [facility] CenterCreatine Jalhnp7139-14-62 07:55:00* Test Item Value Reference Range Interpretation Comments Creatine Kinase (test code = 2157-6) 266 30-200 H [facility] CenterCT ABDOMEN/PELVIS CA6772-09-05 02:46:00 [place] [address] Patient Name: MANJIT LUO MR #: [id number] : 1980 Age/Sex: 38/M Req #: [id number] Adm Physician: Ordered by: BEV FLORES MD Report #: [id number] Location: ER Room/Bed: Procedure: [id number] CT/CT ABDOMEN/PELVIS WO Exam Date: 10/31/18 Exam [...] 10/31/18252 COPY TO: BEV FLORES MD Bedside Yzfpqsa6877-54-05 07:32:00* Test Item Value Reference Range Interpretation Comments Bedside Glucose (test code = 96234-4) 106 70-120 Meter ID: [id number] [facility]lineodium Level 2018-10-29 07:01:00* Test Item Value Reference Range Interpretation Comments Sodium Level (test code = 2951-2) 138 136-145 [facility] CenterPotassium Abbsa7126-94-01 07:01:00* Test Item Value Reference Range Interpretation Comments Potassium Level (test code = 2823-3) 4.5 3.5-5.1 [facility] CenterChloride Brajo3419-57-39 07:01:00* Test Item Value Reference Range Interpretation Comments Chloride Level (test code = 2075-0) 103 98-107 [facility] CenterCarbon Dioxide Mdbtk4651-09-04 07:01:00* Test Item Value Reference Range Interpretation Comments Carbon Dioxide Level (test code = 2028-9) 24 22-29 [facility] CenterAnion Kkf1608-69-24 07:01:00* Test Item Value Reference Range Interpretation Comments Anion Gap (test code = 88185-2) 15.5 8-16 [facility] CenterBlood Urea Gguddkkz1524-02-97 07:01:00* Test Item Value Reference Range Interpretation Comments Blood Urea Nitrogen (test code = 3094-0) 29 7-26 H [facility] CenterCreatinine2019-09-06 07:01:00* Test Item Value Reference Range Interpretation Comments Creatinine (test code = 2160-0) 3.71 0.72-1.25 H [facility] CenterBUN/Creatinine Pscls9862-34-16 07:01:00* Test Item Value Reference Range Interpretation Comments BUN/Creatinine Ratio (test code = 3097-3) 8 6-25 [facility] CenterEstimat Glomerular Filtration Rate 2018-10-29 07:01:00* Test Item Value Reference Range Interpretation Comments Estimat Glomerular Filtration Rate (test code = 938013570) 18 >60 L Ranges were taken from the National Kidney Disease Education Program and the [facility] Kid[facility] Foundation literature.Reference ranges:60 or greater: Wrvnyv67-10 ( for 3 consecutive months): Chronic kidney disease 15 or less: Kidney failureMethodist [facility]lothian Medical CenterGlucose Cezth1859-37-90 07:01:00* Test Item Value Reference Range Interpretation Comments Glucose Level (test code = WGB3101) 104 74-118 [facility] CenterCalcium Hiscl8523-20-19 07:01:00* Test Item Value Reference Range Interpretation Comments Calcium Level (test code = 12407-6) 8.2 8.4-10.2 L [facility] CenterWhite Blood Nkuou5027-21-61 06:31:00* Test Item Value Reference Range Interpretation Comments White Blood Count (test code = 6690-2) 5.14 4.8-10.8 [facility] CenterRed Blood Wvdxm5524-23-55 06:31:00* Test Item Value Reference Range Interpretation Comments Red Blood Count (test code = 789-8) 3.56 4.3-5.7 L [facility] CenterHemoglobin2019-09-06 06:31:00* Test Item Value Reference Range Interpretation Comments Hemoglobin (test code = 78728-0) 9.8 14.0-18.0 L [facility] CenterHematocrit2019-09-06 06:31:00* Test Item Value Reference Range Interpretation Comments Hematocrit (test code = 4544-3) 30.4 38.2-49.6 L [facility] CenterMean Corpuscular Srixci5142-41-31 06:31:00* Test Item Value Reference Range Interpretation Comments Mean Corpuscular Volume (test code = 787-2) 85.4 81-99 [facility] CenterMean Corpuscular Wudoljvnaz2767-08-65 06:31:00* Test Item Value Reference Range Interpretation Comments Mean Corpuscular Hemoglobin (test code = 785-6) 27.5 28-[address] [facility]an Corpuscular Hemoglobin Concent 2018-10-29 06:31:00* Test Item Value Reference Range Interpretation Comments Mean Corpuscular Hemoglobin Concent (test code = 786-4) 32.2 31-35 [facility] CenterRed Cell Distribution Tkyrc3427-27-75 06:31:00* Test Item Value Reference Range Interpretation Comments Red Cell Distribution Width (test code = 79111-5) 15.0 11.7 -14.4 H [facility] CenterPlatelet Owwjj8106-74-55 06:31:00* Test Item Value Reference Range Interpretation Comments Platelet Count (test code = 777-3) 103 140-360 L [facility] CenterNeutrophils (%) (Auto)2018-10-29 06:31:00 * Test Item Value Reference Range Interpretation Comments Neutrophils (%) (Auto) (test code = 91801-1) 56.2 38.7-80.0 [facility] CenterLymphocytes (%) (Auto)2018-10-29 06:31:00 * Test Item Value Reference Range Interpretation Comments Lymphocytes (%) (Auto) (test code = 736-9) 33.7 18.0-39.1 [facility] CenterMonocytes (%) (Auto)2018-10-29 06:31:00* Test Item Value Reference Range Interpretation Comments Monocytes (%) (Auto) (test code = 5905-5) 6.2 4.4-11.3 [facility] CenterEosinophils (%) (Auto)2018-10-29 06:31:00 * Test Item Value Reference Range Interpretation Comments Eosinophils (%) (Auto) (test code = 713-8) 2.7 0.0-6.0 [facility] CenterBasophils (%) (Auto)2018-10-29 06:31:00* Test Item Value Reference Range Interpretation Comments Basophils (%) (Auto) (test code = 706-2) 0.4 0.0-1.0 [facility] CenterIM GRANULOCYTES %2018-10-29 06:31:00* Test Item Value Reference Range Interpretation Comments IM GRANULOCYTES % (test code = IM GRANULOCYTES %) 0.8 0.0- 1.0 [facility] CenterNeutrophils # (Auto)2018-10-29 06:31:00* Test Item Value Reference Range Interpretation Comments Neutrophils # (Auto) (test code = 751-8) 2.9 2.1-6.9 [facility] CenterLymphocytes # (Auto)2018-10-29 06:31:00* Test Item Value Reference Range Interpretation Comments Lymphocytes # (Auto) (test code = 22618-0) 1.7 1.0-3.2 [facility] CenterMonocytes # (Auto)2018-10-29 06:31:00* Test Item Value Reference Range Interpretation Comments Monocytes # (Auto) (test code = 742-7) 0.3 0.2-0.8 [facility] CenterEosinophils # (Auto)2018-10-29 06:31:00* Test Item Value Reference Range Interpretation Comments Eosinophils # (Auto) (test code = 711-2) 0.1 0.0-0.4 [facility] CenterBasophils # (Auto)2018-10-29 06:31:00* Test Item Value Reference Range Interpretation Comments Basophils # (Auto) (test code = 704-7) 0.0 0.0-0.1 [facility] CenterAbsolute Immature Granulocyte (auto 2018-10-29 06:31:00* Test Item Value Reference Range Interpretation Comments Absolute Immature Granulocyte (auto (shin t code = Absolute Immature Granulocyte (auto) 0.04 0-0.1 [facility] Cqqom7423-57-85 16:26:00* Test Item Value Reference Range Interpretation Comments Stool Occult Blood (test code = 2335-8) NEGATIVE NEGATIVE [facility] Occult Uwylf5157-24-26 16:26:00* Test Item Value Reference Range Interpretation Comments Stool Occult Blood (test code = 2335-8) NEGATIVE NEGATIVE [facility] Occult Ufofy2009-68-29 16:26:00* Test Item Value Reference Range Interpretation Comments Stool Occult Blood (test code = 2335-8) NEGATIVE NEGATIVE [facility] Occult Xiezk8596-45-85 16:26:00* Test Item Value Reference Range Interpretation Comments Stool Occult Blood (test code = 2335-8) NEGATIVE NEGATIVE [facility] Occult Vkgok5526-96-81 16:26:00* Test Item Value Reference Range Interpretation Comments Stool Occult Blood (test code = 2335-8) NEGATIVE NEGATIVE [facility] Occult Bjnxg9997-56-46 16:26:00* Test Item Value Reference Range Interpretation Comments Stool Occult Blood (test code = 2335-8) NEGATIVE NEGATIVE [facility] Occult Gbzir2307-11-41 16:26:00* Test Item Value Reference Range Interpretation Comments Stool Occult Blood (test code = 2335-8) NEGATIVE NEGATIVE [facility] Occult Krsuw9135-27-65 16:26:00* Test Item Value Reference Range Interpretation Comments Stool Occult Blood (test code = 2335-8) NEGATIVE NEGATIVE [facility] gastrointestinal hemoglobin tlqxirxib0858-89-74 15:53:00* Test Item Value Reference Range Interpretation Comments Stool Occult Blood (test code = 2335-8) NEGATIVE NEGATIVE [facility] gastrointestinal hemoglobin fdsjlpnmb4322-62-62 15:53:00* Test Item Value Reference Range Interpretation Comments Stool Occult Blood (test code = 2335-8) NEGATIVE NEGATIVE [facility] Eydxjpr2618-94-69 07:43:00* Test Item Value Reference Range Interpretation Comments Urine Culture (test code = 630-4) Organism: PSEUDOMONAS AERUGINOSA [facility] Qkxcvof3848-17-20 07:43:00* Test Item Value Reference Range Interpretation Comments Urine Culture (test code = 630-4) Organism: PSEUDOMONAS AERUGINOSA [facility] Fzkkzda7883-33-07 07:43:00* Test Item Value Reference Range Interpretation Comments Urine Culture (test code = 630-4) Organism: PSEUDOMONAS AERUGINOSA [facility] CenterUrine Skywlso7177-81-85 07:43:00* Test Item Value Reference Range Interpretation Comments Urine Culture (test code = 630-4) No Result Data Provided [facility] Giesadg1586-64-27 07:43:00* Test Item Value Reference Range Interpretation Comments Urine Culture (test code = 630-4) No Result Data Provided [facility] CenterRENAL SCAN W/LKLPA0991-85-75 17:45:00 [facility] [address] [address] Patient Name: MANJIT LUO MR #: [id number] : 1980 Age/Sex: 38/M Req #: [id number] Adm Physician: ABHIJIT YODER MD Ordered by: CASTRO JALLOH MD Report #: [id number] Location: MED/SURG3 Room/Bed: [facility] Procedure: [id number] NM/RE NAL SCAN W/LASIX Exam Date: Exam [...] 6:04 PM Dictated By: YULY PERALTA MD [facility] Signed By: YULY PERALTA MD on 10/21/181803 Transcribed By: TIFFANY on 1803 COPY TO: CASTRO JALLOH MD Urine Hnvekpl7056-89-36 14:00:00* Test Item Value Reference Range Interpretation Comments Urine Culture (test code = 630-4) Organism: STAPHYLOCOCCUS AUREUS [facility] CenterUrine Fkzybds8877-93-22 14:00:00* Test Item Value Reference Range Interpretation Comments Urine Culture (test code = 630-4) Organism: STAPHYLOCOCCUS AUREUS [facility] CenterUrine Okjbgtk8989-91-48 14:00:00* Test Item Value Reference Range Interpretation Comments Urine Culture (test code = 630-4) Organism: STAPHYLOCOCCUS AUREUS [facility] CenterUrine Yjxqfus2100-53-39 14:00:00* Test Item Value Reference Range Interpretation Comments Urine Culture (test code = 630-4) No Result Data Provided [facility] CenterUrine Rfsscde0616-27-60 14:00:00* Test Item Value Reference Range Interpretation Comments Urine Culture (test code = 630-4) No Result Data Provided [facility] CenterFerritin2019-08-27 06:53:00* Test Item Value Reference Range Interpretation Comments Ferritin (test code = 2276-4) 242.22 21.81-274.66 [facility] CenterFerritin2019-08-27 06:53:00* Test Item Value Reference Range Interpretation Comments Ferritin (test code = 2276-4) 242.22 21.81-274.66 [facility] CenterFerritin2019-08-27 06:53:00* Test Item Value Reference Range Interpretation Comments Ferritin (test code = 2276-4) 242.22 21.81-274.66 [facility] CenterMagnesium Kflqz8839-71-79 06:25:00* Test Item Value Reference Range Interpretation Comments Magnesium Level (test code = 15359-4) 1.2 1.3-2.1 L [facility] CenterIron Cjgcr3899-10-41 06:25:00* Test Item Value Reference Range Interpretation Comments Iron Level (test code = 2498-4) 66 65-175 [facility] CenterTotal Iron Binding Nmzuujvj9227-90-54 06:25:00* Test Item Value Reference Range Interpretation Comments Total Iron Binding Capacity (test code = 2500-7) 197 261-4 78 L [facility] CenterPercent Iron Spfbrpjfai3775-09-85 06:25:00* Test Item Value Reference Range Interpretation Comments Percent Iron Saturation (test code = 2502-3) 34 15-50 [facility] CenterTransferrin2019-08-27 06:25:00* Test Item Value Reference Range Interpretation Comments Transferrin (test code = 3034-6) 141 174-364 L [facility] CenterPhosphorus Ipuhk9627-67-96 12:53:00* Test Item Value Reference Range Interpretation Comments Phosphorus Level (test code = YZQ6704) 5.0 2.3-4.7 H [facility] CenterCT ABDOMEN/PELVIS SO7027-67-36 09:50:[address] [address] Patient Name: MANJIT LUO MR #: [id number] : 1980 Age/Sex: 38/M Req #: [id number] Adm Physician: ABHIJIT YODER MD Ordered by: ABHIJIT YODER MD Report #: [id number] Location: MED/SURG Room/Bed: [facility] Procedure: [id number] CT/CT ABDOMEN/PELVIS WO Exam Date: 10/18/18 Exam [...] MD 1000 COPY TO: ABHIJIT YODER Ionized Razwjhl6894-45-16 09:47:00* Test Item Value Reference Range Interpretation Comments Ionized Calcium (test code = 73327-1) 1.0 1.09-1.30 L [facility] CenterIonized Sevxszv2161-49-53 09:47:00* Test Item Value Reference Range Interpretation Comments Ionized Calcium (test code = 36850-3) 1.0 1.09-1.30 L [facility] CenterIonized Tgqpegz8373-35-26 09:47:00* Test Item Value Reference Range Interpretation Comments Ionized Calcium (test code = 58035-5) 1.0 1.09-1.30 L [facility] CenterTotal Wowpnolcq4045-70-36 06:16:00* Test Item Value Reference Range Interpretation Comments Total Bilirubin (test code = 1975-2) 0.3 0.2-1.2 [facility] CenterAspartate Amino Transf (AST/SGOT) 2018-10-18 06:16:00* Test Item Value Reference Range Interpretation Comments Aspartate Amino Transf (AST/SGOT) (test code = Aspartate Amino Transf (AST/SGOT)) 118 5-34 H [facility] CenterAlanine Aminotransferase (ALT/SGPT) 2018-10-18 06:16:00* Test Item Value Reference Range Interpretation Comments Alanine Aminotransferase (ALT/SGPT) (test code = 1742-6) 107 0-55 H [facility] CenterTotal Qfdnjsd9774-82-39 06:16:00* Test Item Value Reference Range Interpretation Comments Total Protein (test code = 2885-2) 6.5 6.5-8.1 [facility] CenterAlbumin2019-08-26 06:16:00* Test Item Value Reference Range Interpretation Comments Albumin (test code = 1751-7) 2.7 3.5-5.0 L [facility] CenterGlobulin2019-08-26 06:16:00* Test Item Value Reference Range Interpretation Comments Globulin (test code = 49976-6) 3.8 2.3-3.5 H [facility] CenterAlbumin/Globulin Ffiff7788-29-03 06:16:00 * Test Item Value Reference Range Interpretation Comments Albumin/Globulin Ratio (test code = 1759-0) 0.7 0.8-2.0 L [facility] CenterAlkaline Wsdtoephhff6938-70-12 06:16:00* Test Item Value Reference Range Interpretation Comments Alkaline Phosphatase (test code = 6768-6) 306 40-150 H [facility] CenterUrine Ibdor6847-53-69 02:26:00* Test Item Value Reference Range Interpretation Comments Urine Color (test code = 5778-6) YELLOW YELLOW [facility] CenterUrine Kctguow5893-58-59 02:26:00* Test Item Value Reference Range Interpretation Comments Urine Clarity (test code = 32818-3) CLOUDY CLEAR H [facility] CenterUrine Specific Jbbkvks1081-94-97 02:26:00 * Test Item Value Reference Range Interpretation Comments Urine Specific [place] (test code = 5811-5) 1.020 1.010-1.02 5 [facility] CenterUrine vW2137-86-43 02:26:00* Test Item Value Reference Range Interpretation Comments Urine pH (test code = 21321-6) 6 5-7 [facility] CenterUrine Leukocyte Hettorjm3853-85-73 02:26:00* Test Item Value Reference Range Interpretation Comments Urine Leukocyte Esterase (test code = 5799-2) 2+ NEGATIVE H [facility] CenterUrine Etijshj7786-24-82 02:26:00* Test Item Value Reference Range Interpretation Comments Urine Nitrite (test code = 10475-9) NEGATIVE NEGATIVE [facility] CenterUrine Haenvxf2482-53-54 02:26:00* Test Item Value Reference Range Interpretation Comments Urine Protein (test code = 5804-0) 3+ NEGATIVE H [facility] CenterUrine Glucose (UA)2018-10-17 02:26:00* Test Item Value Reference Range Interpretation Comments Urine Glucose (UA) (test code = 2349-9) NEGATIVE NEGATIVE [facility] CenterUrine Cukueow5640-82-85 02:26:00* Test Item Value Reference Range Interpretation Comments Urine Ketones (test code = 74056-9) NEGATIVE NEGATIVE [facility] Yxfdffsinuzc0853-96-24 02:26:00* Test Item Value Reference Range Interpretation Comments Urine Urobilinogen (test code = 93641-1) 0.2 0.2-1 [facility] CenterUrine Mvfglujso6613-64-88 02:26:00* Test Item Value Reference Range Interpretation Comments Urine Bilirubin (test code = 1978-6) NEGATIVE NEGATIVE [facility] Gmaur8997-85-95 02:26:00* Test Item Value Reference Range Interpretation Comments Urine Blood (test code = 05039-2) 3+ NEGATIVE H [facility] JUX3731-81-78 02:26:00* Test Item Value Reference Range Interpretation Comments Urine WBC (test code = 5821-4) >50 0-5 H [facility] UEK2286-72-84 02:26:00* Test Item Value Reference Range Interpretation Comments Urine RBC (test code = 80359-8) >50 0-5 H [facility] Vhwjfpcw3241-06-81 02:26:00* Test Item Value Reference Range Interpretation Comments Urine Bacteria (test code = 54174-1) MANY NONE H [facility] Epithelial Ohumf1758-33-33 02:26:00 * Test Item Value Reference Range Interpretation Comments Urine Epithelial Cells (test code = 77425-0) MODERATE NONE [facility] Frlby7156-73-07 13:40:00* Test Item Value Reference Range Interpretation Comments Sodium Level (test code = 2951-2) 142 136-145 [facility] CenterPotassium Zkqzb8222-59-94 13:40:00* Test Item Value Reference Range Interpretation Comments Potassium Level (test code = 2823-3) 4.4 3.5-5.1 [facility] CenterChloride Chnwo5773-55-69 13:40:00* Test Item Value Reference Range Interpretation Comments Chloride Level (test code = 2075-0) 107 98-107 [facility] CenterCarbon Dioxide Tjvnp6251-45-88 13:40:00* Test Item Value Reference Range Interpretation Comments Carbon Dioxide Level (test code = 2028-9) 25 22-29 [facility] CenterAnion Ixv7475-45-25 13:40:00* Test Item Value Reference Range Interpretation Comments Anion Gap (test code = 77464-2) 14.4 8-16 [facility] CenterBlood Urea Smfegovj0948-03-85 13:40:00* Test Item Value Reference Range Interpretation Comments Blood Urea Nitrogen (test code = 3094-0) 34 7-26 H [facility] CenterCreatinine2019-05-05 13:40:00* Test Item Value Reference Range Interpretation Comments Creatinine (test code = 2160-0) 2.63 0.72-1.25 H [facility] CenterBUN/Creatinine Ltyth0730-93-42 13:40:00* Test Item Value Reference Range Interpretation Comments BUN/Creatinine Ratio (test code = 3097-3) 13 6- [facility] CenterEstimat Glomerular Filtration Rate 2018-06-27 13:40:00* Test Item Value Reference Range Interpretation Comments Estimat Glomerular Filtration Rate (test code = 442877125) 28 >60 L Ranges were taken from the National Kidney Disease Education Program and the [facility] [employer] [employer] literature.Reference ranges:60 or greater: Jhqswy25-56 ( for 3 consecutive months): Chronic kidney disease 15 or less: Kidney failureMethodist Midlothian Medical CenterGlucose Gcyeo7897-17-76 13:40:00* Test Item Value Reference Range Interpretation Comments Glucose Level (test code = ATF0942) 105 74-118 [facility] CenterCalcium Vsint7537-56-97 13:40:00* Test Item Value Reference Range Interpretation Comments Calcium Level (test code = 82259-0) 7.1 8.4-10.2 L [facility] CenterBedside Tegqnyh9060-61-64 11:50:00* Test Item Value Reference Range Interpretation Comments Bedside Glucose (test code = 01266-0) 160 70-120 H Meter ID: [id number] [facility]Blood [facility] 2018-06-25 17:11:00* Test Item Value Reference Range Interpretation Comments Blood Culture (test code = 17646856) NO GROWTH AFTER 5 DAYS, FINAL REPORT [facility] Vhbzwpa1701-31-15 17:11:00* Test Item Value Reference Range Interpretation Comments Blood Culture (test code = 70623957) NO GROWTH AFTER 5 DAYS, FINAL REPORT [facility] CenterWhite Blood Wmkrb3105-03-15 06:01:00* Test Item Value Reference Range Interpretation Comments White Blood Count (test code = 6690-2) 4.22 4.8-10.8 L [facility] CenterRed Blood Yltww8360-79-19 06:01:00* Test Item Value Reference Range Interpretation Comments Red Blood Count (test code = 789-8) 3.20 4.3-5.7 L [facility] CenterHemoglobin2019-05-03 06:01:00* Test Item Value Reference Range Interpretation Comments Hemoglobin (test code = 18295-9) 8.6 14.0-18.0 L [facility] CenterHematocrit2019-05-03 06:01:00* Test Item Value Reference Range Interpretation Comments Hematocrit (test code = 4544-3) 26.0 38.2-49.6 L [facility] CenterMean Corpuscular Auxflv9239-49-25 06:01:00* Test Item Value Reference Range Interpretation Comments Mean Corpuscular Volume (test code = 787-2) 81.3 81-99 [facility] CenterMean Corpuscular Vmcoqlqerg3469-71-37 06:01:00* Test Item Value Reference Range Interpretation Comments Mean Corpuscular Hemoglobin (test code = 785-6) 26.9 28-32 L [facility] Corpuscular Hemoglobin Concent 2018-06-25 06:01:00* Test Item Value Reference Range Interpretation Comments Mean Corpuscular Hemoglobin Concent (test code = 786-4) 33.1 31-35 [facility] CenterRed Cell Distribution Exemt5039-59-89 06:01:00* Test Item Value Reference Range Interpretation Comments Red Cell Distribution Width (test code = 58162-9) 13.7 11.7 -14.4 [facility] CenterPlatelet Ppfid6769-02-57 06:01:00* Test Item Value Reference Range Interpretation Comments Platelet Count (test code = 777-3) 147 140-360 [facility] CenterNeutrophils (%) (Auto)2018-06-25 06:01:00 * Test Item Value Reference Range Interpretation Comments Neutrophils (%) (Auto) (test code = 27552-6) 56.1 38.7-80.0 [facility] CenterLymphocytes (%) (Auto)2018-06-25 06:01:00 * Test Item Value Reference Range Interpretation Comments Lymphocytes (%) (Auto) (test code = 736-9) 32.0 18.0-39.1 [facility] CenterMonocytes (%) (Auto)2018-06-25 06:01:00* Test Item Value Reference Range Interpretation Comments Monocytes (%) (Auto) (test code = 5905-5) 5.7 4.4-11.3 [facility] CenterEosinophils (%) (Auto)2018-06-25 06:01:00 * Test Item Value Reference Range Interpretation Comments Eosinophils (%) (Auto) (test code = 713-8) 3.8 0.0-6.0 [facility] CenterBasophils (%) (Auto)2018-06-25 06:01:00* Test Item Value Reference Range Interpretation Comments Basophils (%) (Auto) (test code = 706-2) 0.5 0.0-1.0 [facility] CenterIM GRANULOCYTES %2018-06-25 06:01:00* Test Item Value Reference Range Interpretation Comments IM GRANULOCYTES % (test code = IM GRANULOCYTES %) 1.9 0.0- 1.0 H [facility] CenterNeutrophils # (Auto)2018-06-25 06:01:00* Test Item Value Reference Range Interpretation Comments Neutrophils # (Auto) (test code = 751-8) 2.4 2.1-6.9 [facility] CenterLymphocytes # (Auto)2018-06-25 06:01:00* Test Item Value Reference Range Interpretation Comments Lymphocytes # (Auto) (test code = 40851-0) 1.4 1.0-3.2 [facility] CenterMonocytes # (Auto)2018-06-25 06:01:00* Test Item Value Reference Range Interpretation Comments Monocytes # (Auto) (test code = 742-7) 0.2 0.2-0.8 [facility] CenterEosinophils # (Auto)2018-06-25 06:01:00* Test Item Value Reference Range Interpretation Comments Eosinophils # (Auto) (test code = 711-2) 0.2 0.0-0.4 [facility] CenterBasophils # (Auto)2018-06-25 06:01:00* Test Item Value Reference Range Interpretation Comments Basophils # (Auto) (test code = 704-7) 0.0 0.0-0.1 [facility] CenterAbsolute Immature Granulocyte (auto 2018-06-25 06:01:00* Test Item Value Reference Range Interpretation Comments Absolute Immature Granulocyte (auto (shin t code = Absolute Immature Granulocyte (auto) 0.08 0-0.1 [facility] CenterFerritin2019-05-01 08:32:00* Test Item Value Reference Range Interpretation Comments Ferritin (test code = 2276-4) 273.51 21.81-274.66 [facility] CenterIron Zinfw4696-69-50 06:46:00* Test Item Value Reference Range Interpretation Comments Iron Level (test code = 2498-4) 71 65-175 [facility] CenterTotal Iron Binding Lezahidb8121-85-73 06:46:00* Test Item Value Reference Range Interpretation Comments Total Iron Binding Capacity (test code = 2500-7) 217 261-4 78 L [facility] CenterPercent Iron Imphknffah9840-24-86 06:46:00* Test Item Value Reference Range Interpretation Comments Percent Iron Saturation (test code = 2502-3) 33 15-50 [facility] CenterTransferrin2019-05-01 06:46:00* Test Item Value Reference Range Interpretation Comments Transferrin (test code = 3034-6) 155 174-364 L [facility] CenterPhosphorus Xtpkh4106-08-44 06:11:00* Test Item Value Reference Range Interpretation Comments Phosphorus Level (test code = GMX4166) 4.8 2.3-4.7 H [facility] CenterMagnesium Wcmnz7916-13-73 06:11:00* Test Item Value Reference Range Interpretation Comments Magnesium Level (test code = 53339-7) 1.2 1.3-2.1 L [facility] CenterUrine Random Total Unkxlzt0049-11-32 18:31:00* Test Item Value Reference Range Interpretation Comments Urine Random Total Protein (test code = 2888-6) 227.6 1-14 H [facility] CenterUrine Protein/Creatinine Jpbnq3234-95-56 18:31:00* Test Item Value Reference Range Interpretation Comments Urine Protein/Creatinine Ratio (test code = 10858-4) 2.00 [facility] CenterUrine Random Total Tmofeqs2702-82-60 18:31:00* Test Item Value Reference Range Interpretation Comments Urine Random Total Protein (test code = 2888-6) 227.6 1-14 H [facility] CenterUrine Protein/Creatinine Nkcgh2768-01-99 18:31:00* Test Item Value Reference Range Interpretation Comments Urine Protein/Creatinine Ratio (test code = 05531-9) 2.00 [facility] CenterUrine Random Total Bvxspfp5050-05-97 18:31:00* Test Item Value Reference Range Interpretation Comments Urine Random Total Protein (test code = 2888-6) 227.6 1-14 H [facility] CenterUrine Protein/Creatinine Crfqh5737-14-84 18:31:00* Test Item Value Reference Range Interpretation Comments Urine Protein/Creatinine Ratio (test code = 65767-3) 2.00 [facility] CenterUrine Random Total Qyrdnba3113-68-23 18:31:00* Test Item Value Reference Range Interpretation Comments Urine Random Total Protein (test code = 2888-6) 227.6 1-14 H [facility] CenterUrine Protein/Creatinine Wtfbx1503-40-13 18:31:00* Test Item Value Reference Range Interpretation Comments Urine Protein/Creatinine Ratio (test code = 88860-6) 2.00 [facility] CenterUrine Random Total Twnktkm1206-29-84 18:31:00* Test Item Value Reference Range Interpretation Comments Urine Random Total Protein (test code = 2888-6) 227.6 1-14 H [facility] CenterUrine Protein/Creatinine Dmqbd9690-62-27 18:31:00* Test Item Value Reference Range Interpretation Comments Urine Protein/Creatinine Ratio (test code = 20269-0) 2.00 [facility] CenterUrine Random Total Felmaed4192-93-35 18:31:00* Test Item Value Reference Range Interpretation Comments Urine Random Total Protein (test code = 2888-6) 227.6 1-14 H [facility] CenterUrine Protein/Creatinine Iorhm7575-18-65 18:31:00* Test Item Value Reference Range Interpretation Comments Urine Protein/Creatinine Ratio (test code = 70796-9) 2.00 [facility] CenterUrine Mfybjpizwq2655-24-37 18:19:00* Test Item Value Reference Range Interpretation Comments Urine Creatinine (test code = 2161-8) 76.55 63-166 [facility] CenterUrine Izmrltzgle3627-03-62 18:19:00* Test Item Value Reference Range Interpretation Comments Urine Creatinine (test code = 2161-8) 76.55 63-166 [facility] CenterUrine Nixjnzwptf3512-15-96 18:19:00* Test Item Value Reference Range Interpretation Comments Urine Creatinine (test code = 2161-8) 76.55 63-166 [facility] CenterUrine Rpxiroqdhh1124-82-84 18:19:00* Test Item Value Reference Range Interpretation Comments Urine Creatinine (test code = 2161-8) 76.55 63-166 [facility] CenterUrine Earbwrtwhj0935-06-18 18:19:00* Test Item Value Reference Range Interpretation Comments Urine Creatinine (test code = 2161-8) 76.55 63-166 [facility] CenterU[facility] Numlqpuuoi3912-60-90 18:19:00* Test Item Value Reference Range Interpretation Comments Urine Creatinine (test code = 2161-8) 76.55 63-166 [facility] CenterTotal Sssrfxjmt5643-53-09 06:25:00* Test Item Value Reference Range Interpretation Comments Total Bilirubin (test code = 1975-2) 0.2 0.2-1.2 [facility] CenterAspartate Amino Transf (AST/SGOT) 2018-06-22 06:25:00* Test Item Value Reference Range Interpretation Comments Aspartate Amino Transf (AST/SGOT) (test code = Aspartate Amino Transf (AST/SGOT)) 86 5-34 H [facility] CenterAlanine Aminotransferase (ALT/SGPT) 2018-06-22 06:25:00* Test Item Value Reference Range Interpretation Comments Alanine Aminotransferase (ALT/SGPT) (test code = 1742-6) 76 0-55 H [facility] CenterTotal Zocbdpb5705-55-02 06:25:00* Test Item Value Reference Range Interpretation Comments Total Protein (test code = 2885-2) 6.8 6.5-8.1 [facility] CenterAlbumin2019-04-30 06:25:00* Test Item Value Reference Range Interpretation Comments Albumin (test code = 1751-7) 2.1 3.5-5.0 L [facility] CenterGlobulin2019-04-30 06:25:00* Test Item Value Reference Range Interpretation Comments Globulin (test code = 30924-4) 4.7 2.3-3.5 H [facility] CenterAlbumin/Globulin Txowc6598-42-24 06:25:00 * Test Item Value Reference Range Interpretation Comments Albumin/Globulin Ratio (test code = 1759-0) 0.4 0.8-2.0 L [facility] CenterAlkaline Zlnscppyyqb1311-45-28 06:25:00* Test Item Value Reference Range Interpretation Comments Alkaline Phosphatase (test code = 6768-6) 265 40-150 H [facility] CenterHemoglobin A1c Drpummn9455-88-40 06:11:00 * Test Item Value Reference Range Interpretation Comments Hemoglobin A1c Percent (test code = Hemoglobin A1c Percent) 5.7 4.0-7.0 [facility] CenterHemoglobin A1c Sabcrsw6038-14-50 06:11:00 * Test Item Value Reference Range Interpretation Comments Hemoglobin A1c Percent (test code = Hemoglobin A1c Percent) 5.7 4.0-7.0 [facility] CenterHemoglobin A1c Fehgfmv3083-10-12 06:11:00 * Test Item Value Reference Range Interpretation Comments Hemoglobin A1c Percent (test code = Hemoglobin A1c Percent) 5.7 4.0-7.0 [facility] CenterHemoglobin A1c Omyhfuy9728-63-15 06:11:00 * Test Item Value Reference Range Interpretation Comments Hemoglobin A1c Percent (test code = Hemoglobin A1c Percent) 5.7 4.0-7.0 [facility] CenterHemoglobin A1c Qbxxxdf9874-22-90 06:11:00 * Test Item Value Reference Range Interpretation Comments Hemoglobin A1c Percent (test code = Hemoglobin A1c Percent) 5.7 4.0-7.0 [facility] CenterHemoglobin A1c Ceqglwo3511-84-66 06:11:00 * Test Item Value Reference Range Interpretation Comments Hemoglobin A1c Percent (test code = Hemoglobin A1c Percent) 5.7 4.0-7.0 [facility] CenterVitamin B12 Ekaim3515-15-34 11:07:00* Test Item Value Reference Range Interpretation Comments Vitamin B12 Level (test code = 93996-9) 403 213-816 [facility] CenterFolate2019-04-29 11:07:00* Test Item Value Reference Range Interpretation Comments Folate (test code = 2284-8) 7.2 7.0-15.4 [facility] CenterVitamin B12 Xqbie3002-52-58 11:07:00* Test Item Value Reference Range Interpretation Comments Vitamin B12 Level (test code = 77312-0) 403 213-816 [facility] CenterFolate2019-04-29 11:07:00* Test Item Value Reference Range Interpretation Comments Folate (test code = 2284-8) 7.2 7.0-15.4 [facility] CenterVitamin B12 Argjv2267-15-44 11:07:00* Test Item Value Reference Range Interpretation Comments Vitamin B12 Level (test code = 44762-7) 403 213-816 [facility] CenterFolate2019-04-29 11:07:00* Test Item Value Reference Range Interpretation Comments Folate (test code = 2284-8) 7.2 7.0-15.4 [facility] CenterVitamin B12 Bomub8911-74-00 11:07:00* Test Item Value Reference Range Interpretation Comments Vitamin B12 Level (test code = 17779-0) 403 213-816 [facility] CenterFolate2019-04-29 11:07:00* Test Item Value Reference Range Interpretation Comments Folate (test code = 2284-8) 7.2 7.0-15.4 [facility] CenterVitamin B12 Wfdwu3096-54-95 11:07:00* Test Item Value Reference Range Interpretation Comments Vitamin B12 Level (test code = 31292-9) 403 213-816 [facility] CenterFolate2019-04-29 11:07:00* Test Item Value Reference Range Interpretation Comments Folate (test code = 2284-8) 7.2 7.0-15.4 [facility] CenterVitamin B12 Bwsgi5518-49-73 11:07:00* Test Item Value Reference Range Interpretation Comments Vitamin B12 Level (test code = 28914-1) 403 213-816 [facility] CenterFolate2019-04-29 11:07:00* Test Item Value Reference Range Interpretation Comments Folate (test code = 2284-8) 7.2 7.0-15.4 [facility] CenterThyroid Stimulating Hormone (TSH) 2018-06-21 11:06:00* Test Item Value Reference Range Interpretation Comments Thyroid Stimulating Hormone (TSH) (test code = 74046-4) 2.156 0.350-4.940 [facility] CenterThyroid Stimulating Hormone (TSH) 2018-06-21 11:06:00* Test Item Value Reference Range Interpretation Comments Thyroid Stimulating Hormone (TSH) (test code = 21165-1) 2.156 0.350-4.940 [facility] CenterThyroid Stimulating Hormone (TSH) 2018-06-21 11:06:00* Test Item Value Reference Range Interpretation Comments Thyroid Stimulating Hormone (TSH) (test code = 40906-0) 2.156 0.350-4.940 [facility] CenterThyroid Stimulating Hormone (TSH) 2018-06-21 11:06:00* Test Item Value Reference Range Interpretation Comments Thyroid Stimulating Hormone (TSH) (test code = 69111-2) 2.156 0.350-4.940 [facility] CenterThyroid Stimulating Hormone (TSH) 2018-06-21 11:06:00* Test Item Value Reference Range Interpretation Comments Thyroid Stimulating Hormone (TSH) (test code = 70114-6) 2.156 0.350-4.940 [facility] CenterThyroid Stimulating Hormone (TSH) 2018-06-21 11:06:00* Test Item Value Reference Range Interpretation Comments Thyroid Stimulating Hormone (TSH) (test code = 29507-5) 2.156 0.350-4.940 [facility] CenterUrine SAA0043-82-54 17:46:00* Test Item Value Reference Range Interpretation Comments Urine WBC (test code = 5821-4) >50 0-5 H [facility] CenterUrine NAN7138-56-49 17:46:00* Test Item Value Reference Range Interpretation Comments Urine RBC (test code = 44558-0) >50 0-5 H [facility] CenterUrine Zgtpbwvb7101-41-26 17:46:00* Test Item Value Reference Range Interpretation Comments Urine Bacteria (test code = 24992-8) MANY NONE H [facility] CenterUrine Epithelial Nxszm3295-17-45 17:46:00 * Test Item Value Reference Range Interpretation Comments Urine Epithelial Cells (test code = 34417-7) FEW NONE [facility] CenterUrine Fine Granular Gidmh4371-11-46 17:46:00* Test Item Value Reference Range Interpretation Comments Urine Fine Granular Casts (test code = 04706-6) 1-5 >0 H [facility] CenterUrine Coarse Granular Evlfx7851-92-48 17:46:00* Test Item Value Reference Range Interpretation Comments Urine Coarse Granular Casts (test code = 98791-3) 1-5 >0 H [facility] CenterUrine Fine Granular Idzsz4525-71-83 17:46:00* Test Item Value Reference Range Interpretation Comments Urine Fine Granular Casts (test code = 95002-5) 1-5 >0 H [facility] CenterUrine Coarse Granular Nktsc2302-05-58 17:46:00* Test Item Value Reference Range Interpretation Comments Urine Coarse Granular Casts (test code = 74879-4) 1-5 >0 H [facility] CenterUrine Fine Granular Pbhsd9758-28-29 17:46:00* Test Item Value Reference Range Interpretation Comments Urine Fine Granular Casts (test code = 98097-6) 1-5 >0 H [facility] CenterUrine Coarse Granular Aripb1493-45-37 17:46:00* Test Item Value Reference Range Interpretation Comments Urine Coarse Granular Casts (test code = 60412-1) 1-5 >0 H [facility] CenterUrine Fine Granular Mflnc2898-40-41 17:46:00* Test Item Value Reference Range Interpretation Comments Urine Fine Granular Casts (test code = 71671-2) 1-5 >0 H [facility] CenterUrine Coarse Granular Rrbvz2038-68-90 17:46:00* Test Item Value Reference Range Interpretation Comments Urine Coarse Granular Casts (test code = 28415-3) 1-5 >0 H [facility] CenterUrine Fine Granular Vhszy4838-49-57 17:46:00* Test Item Value Reference Range Interpretation Comments Urine Fine Granular Casts (test code = 53867-0) 1-5 >0 H [facility] CenterUrine Coarse Granular Yahwa7708-86-77 17:46:00* Test Item Value Reference Range Interpretation Comments Urine Coarse Granular Casts (test code = 03139-7) 1-5 >0 H [facility] CenterUrine Fine Granular Nwriw1016-84-93 17:46:00* Test Item Value Reference Range Interpretation Comments Urine Fine Granular Casts (test code = 18580-2) 1-5 >0 H [facility] CenterUrine Coarse Granular Znduq1159-18-49 17:46:00* Test Item Value Reference Range Interpretation Comments Urine Coarse Granular Casts (test code = 29159-5) 1-5 >0 H [facility] CenterUrine Fnfig2984-26-17 17:30:00* Test Item Value Reference Range Interpretation Comments Urine Color (test code = 5778-6) YELLOW YELLOW [facility] CenterUrine Ajorudm9703-74-22 17:30:00* Test Item Value Reference Range Interpretation Comments Urine Clarity (test code = 41350-9) CLOUDY CLEAR H [facility] CenterUrine Specific Ncuxtmq8956-27-58 17:30:00 * Test Item Value Reference Range Interpretation Comments Urine Specific [place] (test code = 5811-5) 1.020 1.010-1.02 5 [facility] CenterUrine [id number] 17:30:00* Test Item Value Reference Range Interpretation Comments Urine pH (test code = 94672-6) 6 5-7 [facility] CenterUrine Leukocyte Ylxcwbng6221-58-00 17:30:00* Test Item Value Reference Range Interpretation Comments Urine Leukocyte Esterase (test code = 5799-2) 1+ NEGATIVE H [facility] CenterUrine Peyxmdq1782-23-24 17:30:00* Test Item Value Reference Range Interpretation Comments Urine Nitrite (test code = 06615-2) NEGATIVE NEGATIVE [facility] CenterUrine Kpcgfso5021-69-49 17:30:00* Test Item Value Reference Range Interpretation Comments Urine Protein (test code = 5804-0) 3+ NEGATIVE H [facility] CenterUrine Glucose (UA)2018-06-20 17:30:00* Test Item Value Reference Range Interpretation Comments Urine Glucose (UA) (test code = 2349-9) 1+ NEGATIVE H [facility] CenterUrine Lcukkov1844-21-98 17:30:00* Test Item Value Reference Range Interpretation Comments Urine Ketones (test code = 04676-3) NEGATIVE NEGATIVE [facility] CenterUrine Vwkarunofnqs6895-97-89 17:30:00* Test Item Value Reference Range Interpretation Comments Urine Urobilinogen (test code = 51433-3) 0.2 0.2-1 [facility] CenterUrine Iqlyuzsfa0151-90-07 17:30:00* Test Item Value Reference Range Interpretation Comments Urine Bilirubin (test code = 1978-6) NEGATIVE NEGATIVE [facility] Cutlw4438-30-56 17:30:00* Test Item Value Reference Range Interpretation Comments Urine Blood (test code = 92712-4) 4+ NEGATIVE H [facility] CenterBedside Htchteu1792-01-97 16:10:00* Test Item Value Reference Range Interpretation Comments Bedside Glucose (test code = 09760-1) 72 70-120 Meter ID: [id number] Culture 2018-05-07 07:13:00* Test Item Value Reference Range Interpretation Comments Urine Culture (test code = 630-4) Organism: PSEUDOMONAS AERUGINOSA [facility] Vfgsnre2636-84-31 07:13:00* Test Item Value Reference Range Interpretation Comments Urine Culture (test code = 630-4) Organism: PSEUDOMONAS AERUGINOSA [facility] Acjvogo0355-06-03 07:13:00* Test Item Value Reference Range Interpretation Comments Urine Culture (test code = 630-4) Organism: PSEUDOMONAS AERUGINOSA [facility] Dvbdodk8589-85-86 07:13:00* Test Item Value Reference Range Interpretation Comments Urine Culture (test code = 630-4) Organism: PSEUDOMONAS AERUGINOSA [facility] Ahszlfs0721-07-41 07:13:00* Test Item Value Reference Range Interpretation Comments Urine Culture (test code = 630-4) Organism: PSEUDOMONAS AERUGINOSA [facility] Docokzl5645-63-58 07:13:00* Test Item Value Reference Range Interpretation Comments Urine Culture (test code = 630-4) No Result Data Provided [facility] Vqaek8525-47-77 06:43:00* Test Item Value Reference Range Interpretation Comments Sodium Level (test code = 2951-2) 136 136-145 [facility] Ytutm9914-94-52 06:43:00* Test Item Value Reference Range Interpretation Comments Potassium Level (test code = 2823-3) 5.2 3.5-5.1 H [facility] CenterChloride Ybixe8687-82-09 06:43:00* Test Item Value Reference Range Interpretation Comments Chloride Level (test code = 2075-0) 111 98-107 H [facility] CenterCarbon Dioxide Fodsw3214-50-07 06:43:00* Test Item Value Reference Range Interpretation Comments Carbon Dioxide Level (test code = 2028-9) 21 22-29 L [facility] CenterAnion Lqe2910-20-92 06:43:00* Test Item Value Reference Range Interpretation Comments Anion Gap (test code = 70669-9) 9.2 8-16 [facility] CenterBlood Urea Sfjigbed4576-98-83 06:43:00* Test Item Value Reference Range Interpretation Comments Blood Urea Nitrogen (test code = 3094-0) 26 7-26 [facility] CenterCreatinine2019-03-14 06:43:00* Test Item Value Reference Range Interpretation Comments Creatinine (test code = 2160-0) 2.22 0.72-1.25 H [facility] CenterBUN/Creatinine Ffyby0270-98-75 06:43:00* Test Item Value Reference Range Interpretation Comments BUN/Creatinine Ratio (test code = 3097-3) 12 6-25 [facility] CenterEstimat Glomerular Filtration Rate 2018-05-06 06:43:00* Test Item Value Reference Range Interpretation Comments Estimat Glomerular Filtration Rate (test code = 341982817) 33 >60 L Ranges were taken from the National Kidney Disease Education Program and the [facility] [employer] literature.Reference ranges:60 or greater: Hidsrq21-80 ( for 3 consecutive months): Chronic kidney disease 15 or less: Kidney failureMethodist [facility] Medical CenterGlucose Kbrbb7513-84-26 06:43:00* Test Item Value Reference Range Interpretation Comments Glucose Level (test code = YHF0061) 144 74-118 H [facility] CenterCalcium Mdsxk2840-91-51 06:43:00* Test Item Value Reference Range Interpretation Comments Calcium Level (test code = 50343-0) 6.5 8.4-10.2 LL Results repeated and called to RANULFO ALATORRE RN at 0641 on 05/06/18 by Morenita Guy. Read back and verified.[facility] CenterWhite Blood Xfqzy3008-87-98 06:20:00* Test Item Value Reference Range Interpretation Comments White Blood Count (test code = 6690-2) 3.55 4.8-10.8 L [facility] CenterRed Blood Cpwsf5930-51-07 06:20:00* Test Item Value Reference Range Interpretation Comments Red Blood Count (test code = 789-8) 3.25 4.3-5.7 L [facility] CenterHemoglobin2019-03-14 06:20:00* Test Item Value Reference Range Interpretation Comments Hemoglobin (test code = 89507-4) 8.6 14.0-18.0 L [facility] CenterHematocrit2019-03-14 06:20:00* Test Item Value Reference Range Interpretation Comments Hematocrit (test code = 4544-3) 27.2 38.2-49.6 L [facility] CenterMean Corpuscular Irzyxz4739-12-98 06:20:00* Test Item Value Reference Range Interpretation Comments Mean Corpuscular Volume (test code = 787-2) 83.7 81-99 [facility] CenterMean Corpuscular Idaycxqrsl1584-21-76 06:20:00* Test Item Value Reference Range Interpretation Comments Mean Corpuscular Hemoglobin (test code = 785-6) 26.5 28-32 L [facility] CenterMean Corpuscular Hemoglobin Concent 2018-05-06 06:20:00* Test Item Value Reference Range Interpretation Comments Mean Corpuscular Hemoglobin Concent (test code = 786-4) 31.6 31-35 [facility] CenterRed Cell Distribution Etpqd1692-75-95 06:20:00* Test Item Value Reference Range Interpretation Comments Red Cell Distribution Width (test code = 31591-5) 14.6 11.7 -14.4 H [facility] CenterPlatelet Efnjx8256-91-08 06:20:00* Test Item Value Reference Range Interpretation Comments Platelet Count (test code = 777-3) 113 140-360 L [facility] CenterNeutrophils (%) (Auto)2018-05-06 06:20:00 * Test Item Value Reference Range Interpretation Comments Neutrophils (%) (Auto) (test code = 86613-7) 59.6 38.7-80.0 [facility] CenterLymphocytes (%) (Auto)2018-05-06 06:20:00 * Test Item Value Reference Range Interpretation Comments Lymphocytes (%) (Auto) (test code = 736-9) 24.8 18.0-39.1 [facility] CenterMonocytes (%) (Auto)2018-05-06 06:20:00* Test Item Value Reference Range Interpretation Comments Monocytes (%) (Auto) (test code = 5905-5) 8.5 4.4-11.3 [facility] CenterEosinophils (%) (Auto)2018-05-06 06:20:00 * Test Item Value Reference Range Interpretation Comments Eosinophils (%) (Auto) (test code = 713-8) 5.1 0.0-6.0 [facility] CenterBasophils (%) (Auto)2018-05-06 06:20:00* Test Item Value Reference Range Interpretation Comments Basophils (%) (Auto) (test code = 706-2) 0.6 0.0-1.0 [facility] CenterIM GRANULOCYTES %2018-05-06 06:20:00* Test Item Value Reference Range Interpretation Comments IM GRANULOCYTES % (test code = IM GRANULOCYTES %) 1.4 0.0- 1.0 H [facility] CenterNeutrophils # (Auto)2018-05-06 06:20:00* Test Item Value Reference Range Interpretation Comments Neutrophils # (Auto) (test code = 751-8) 2.1 2.1-6.9 [facility] CenterLymphocytes # (Auto)2018-05-06 06:20:00* Test Item Value Reference Range Interpretation Comments Lymphocytes # (Auto) (test code = 80637-0) 0.9 1.0-3.2 L [facility] CenterMonocytes # (Auto)2018-05-06 06:20:00* Test Item Value Reference Range Interpretation Comments Monocytes # (Auto) (test code = 742-7) 0.3 0.2-0.8 [facility] CenterEosinophils # (Auto)2018-05-06 06:20:00* Test Item Value Reference Range Interpretation Comments Eosinophils # (Auto) (test code = 711-2) 0.2 0.0-0.4 [facility] CenterBasophils # (Auto)2018-05-06 06:20:00* Test Item Value Reference Range Interpretation Comments Basophils # (Auto) (test code = 704-7) 0.0 0.0-0.1 [facility] CenterAbsolute Immature Granulocyte (auto 2018-05-06 06:20:00* Test Item Value Reference Range Interpretation Comments Absolute Immature Granulocyte (auto (shin t code = Absolute Immature Granulocyte (auto) 0.05 0-0.1 [facility] CenterTotal Jqqfbgusu7383-85-68 06:21:00* Test Item Value Reference Range Interpretation Comments Total Bilirubin (test code = 1975-2) 0.2 0.2-1.2 [facility] CenterAspartate Amino Transf (AST/SGOT) 2018-05-05 06:21:00* Test Item Value Reference Range Interpretation Comments Aspartate Amino Transf (AST/SGOT) (test code = Aspartate Amino Transf (AST/SGOT)) 31 5-34 [facility] CenterAlanine Aminotransferase (ALT/SGPT) 2018-05-05 06:21:00* Test Item Value Reference Range Interpretation Comments Alanine Aminotransferase (ALT/SGPT) (test code = 1742-6) 44 0-55 [facility] CenterTotal Ssdvrbv3815-50-59 06:21:00* Test Item Value Reference Range Interpretation Comments Total Protein (test code = 2885-2) 6.6 6.5-8.1 [facility] CenterAlbumin2019-03-13 06:21:00* Test Item Value Reference Range Interpretation Comments Albumin (test code = 1751-7) 2.4 3.5-5.0 L [facility] CenterGlobulin2019-03-13 06:21:00* Test Item Value Reference Range Interpretation Comments Globulin (test code = 35406-6) 4.2 2.3-3.5 H [facility] CenterAlbumin/Globulin Sppac8181-59-31 06:21:00 * Test Item Value Reference Range Interpretation Comments Albumin/Globulin Ratio (test code = 1759-0) 0.6 0.8-2.0 L [facility] CenterAlkaline Wqqbizebalf1370-02-42 06:21:00* Test Item Value Reference Range Interpretation Comments Alkaline Phosphatase (test code = 6768-6) 272 40-150 H [facility] CenterUrine Fzczk6741-21-56 01:32:00* Test Item Value Reference Range Interpretation Comments Urine Color (test code = 5778-6) YELLOW YELLOW [facility] CenterUrine Nykuohb2606-30-69 01:32:00* Test Item Value Reference Range Interpretation Comments Urine Clarity (test code = 87690-0) CLOUDY CLEAR H [facility] CenterUrine Specific Lejxstd0049-24-76 01:32:00 * Test Item Value Reference Range Interpretation Comments Urine Specific [place] (test code = 5811-5) 1.025 1.010-1.02 5 [facility] CenterUrine wM2933-15-38 01:32:00* Test Item Value Reference Range Interpretation Comments Urine pH (test code = 57250-4) 6 5-7 [facility] CenterUrine Leukocyte Auupfmjg7724-13-06 01:32:00* Test Item Value Reference Range Interpretation Comments Urine Leukocyte Esterase (test code = 5799-2) 2+ NEGATIVE H [facility] CenterUrine Pvldgaj1362-29-11 01:32:00* Test Item Value Reference Range Interpretation Comments Urine Nitrite (test code = 08094-2) POSITIVE NEGATIVE H [facility] CenterUrine Tmmcocp8322-07-31 01:32:00* Test Item Value Reference Range Interpretation Comments Urine Protein (test code = 5804-0) 3+ NEGATIVE H [facility] CenterUrine Glucose (UA)2018-05-04 01:32:00* Test Item Value Reference Range Interpretation Comments Urine Glucose (UA) (test code = 2349-9) 1+ NEGATIVE H [facility] CenterUrine Flizbyt2620-66-83 01:32:00* Test Item Value Reference Range Interpretation Comments Urine Ketones (test code = 87423-4) NEGATIVE NEGATIVE [facility] Btectyxipoas0183-26-58 01:32:00* Test Item Value Reference Range Interpretation Comments Urine Urobilinogen (test code = 01670-2) 0.2 0.2-1 [facility] CenterUrine Vkdpsrtqr5473-19-13 01:32:00* Test Item Value Reference Range Interpretation Comments Urine Bilirubin (test code = 1978-6) NEGATIVE NEGATIVE [facility] Wxdbs1341-88-48 01:32:00* Test Item Value Reference Range Interpretation Comments Urine Blood (test code = 73250-1) 4+ NEGATIVE H [facility] CenterUrine JQB0454-18-39 01:32:00* Test Item Value Reference Range Interpretation Comments Urine WBC (test code = 5821-4) >50 0-5 H [facility] CenterUrine LNB9164-00-11 01:32:00* Test Item Value Reference Range Interpretation Comments Urine RBC (test code = 72382-3) 21-50 0-5 H [facility] CenterUrine Pdwkfxgy3008-78-38 01:32:00* Test Item Value Reference Range Interpretation Comments Urine Bacteria (test code = 28442-4) MANY NONE H [facility] CenterUrine Epithelial Autdf0357-66-59 01:32:00 * Test Item Value Reference Range Interpretation Comments Urine Epithelial Cells (test code = 16734-3) RARE NONE [facility] CenterInfluenza Virus Types A,B Antigen 2018-05-04 01:16:00* Test Item Value Reference Range Interpretation Comments Influenza Virus Types A,B Antigen (test code = 76765-2) NEGATIVE NEGATIVE [facility] CenterGroup A Streptococcus Rnhubr6678-25-13 01:16:00* Test Item Value Reference Range Interpretation Comments Group A Streptococcus Screen (test code = 00931-1) NEGATIVE NEG ATIVE [facility] CenterInfluenza Virus Types A,B Antigen 2018-05-04 01:16:00* Test Item Value Reference Range Interpretation Comments Influenza Virus Types A,B Antigen (test code = 32896-2) NEGATIVE NEGATIVE [facility] A Streptococcus Xugwnk9361-44-32 01:16:00* Test Item Value Reference Range Interpretation Comments Group A Streptococcus Screen (test code = 51570-2) NEGATIVE NEG ATIVE [facility] CenterInfluenza Virus Types A,B Antigen 2018-05-04 01:16:00* Test Item Value Reference Range Interpretation Comments Influenza Virus Types A,B Antigen (test code = 33041-3) NEGATIVE NEGATIVE [facility] A Streptococcus Gpdadc4351-57-41 01:16:00* Test Item Value Reference Range Interpretation Comments Group A Streptococcus Screen (test code = 88137-1) NEGATIVE NEG ATIVE [facility] CenterInfluenza Virus Types A,B Antigen 2018-05-04 01:16:00* Test Item Value Reference Range Interpretation Comments Influenza Virus Types A,B Antigen (test code = 92752-8) NEGATIVE NEGATIVE [facility] A Streptococcus Ozhswu1667-62-67 01:16:00* Test Item Value Reference Range Interpretation Comments Group A Streptococcus Screen (test code = 40475-8) NEGATIVE NEG ATIVE [facility] CenterInfluenza Virus Types A,B Antigen 2018-05-04 01:16:00* Test Item Value Reference Range Interpretation Comments Influenza Virus Types A,B Antigen (test code = 09737-0) NEGATIVE NEGATIVE [facility] A Streptococcus Zmgggq7202-65-21 01:16:00* Test Item Value Reference Range Interpretation Comments Group A Streptococcus Screen (test code = 10715-2) NEGATIVE NEG ATIVE [facility] CenterInfluenza Virus Types A,B Antigen 2018-05-04 01:16:00* Test Item Value Reference Range Interpretation Comments Influenza Virus Types A,B Antigen (test code = 54799-8) NEGATIVE NEGATIVE [facility] Center[facility] A Streptococcus Xqrdai8409-45-70 01:16:00* Test Item Value Reference Range Interpretation Comments Group A Streptococcus Screen (test code = 37345-6) NEGATIVE NEG ATIVE [facility] CenterCT [facility]/PELVIS FY9477-53-60 18:18:00 [place] [address] Patient Name: MANJIT LUO MR #: [id number] : 1980 Age/Sex: 37/M Req #: [id number] Adm Physician: Ordered by: NORY LEYVA NP Report #: [id number] Location: ER Room/Bed: Procedure: [id number]/CT [...] 6:38 PM Dictated By: ISMA FATIMA MD [facility] Signed By: ISMA FATIMA MD on 05/03/181837 Transcribed By: TIFFANY on 05/03/181837 COPY TO: NORY LEYVA E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 CHEST SINGLE (NOT PORTABLE)2018-05-03 16:44:00 [place] [address] Patient Name: MANJIT LUO MR #: [id number] : 1980 Age/Sex: 37/M Req #: [id number] Adm Physician: Ordered by: NORY LEYVA NP Report #: [id number] Location: ER Room/Bed: Procedure: 031007 2 DX/CHEST SINGLE (NOT PORTABLE) Exam Date: [...] 05/03/181644 COPY TO: NORY LEYVA NP Amylase Ahdnf7035-92-24 15:32:00* Test Item Value Reference Range Interpretation Comments Amylase Level (test code = 1798-8) 62 [facility] CenterLipase2019-03-11 15:32:00* Test Item Value Reference Range Interpretation Comments Lipase (test code = 3040-3) [facility] CenterAm[facility] Hurbd5770-65-84 15:32:00* Test Item Value Reference Range Interpretation Comments Amylase Level (test code = 1798-8) 62 [facility] CenterLipase2019-03-11 15:32:00* Test Item Value Reference Range Interpretation Comments Lipase (test code = 3040-3) [facility] CenterAm[facility] Deapt8636-84-05 15:32:00* Test Item Value Reference Range Interpretation Comments Amylase Level (test code = 1798-8) 62 [facility] CenterLipase2019-03-11 15:32:00* Test Item Value Reference Range Interpretation Comments Lipase (test code = 3040-3) [facility] CenterAmylase Yoapb8022-75-82 15:32:00* Test Item Value Reference Range Interpretation Comments Amylase Level (test code = 1798-8) 62 -125 [facility] CenterLipase2019-03-11 15:32:00* Test Item Value Reference Range Interpretation Comments Lipase (test code = 3040-3) 14 [facility] CenterAmylase Sxkja2968-24-27 15:32:00* Test Item Value Reference Range Interpretation Comments Amylase Level (test code = 1798-8) 62 -125 [facility] CenterLipase2019-03-11 15:32:00* Test Item Value Reference Range Interpretation Comments Lipase (test code = 3040-3) 14 [facility] CenterAmylase Vwbrz3677-63-11 15:32:00* Test Item Value Reference Range Interpretation Comments Amylase Level (test code = 1798-8) 62 [facility] CenterLipase2019-03-11 15:32:00* Test Item Value Reference Range Interpretation Comments Lipase (test code = 3040-3) 14 [facility] CenterBlood Uyrpwud7408-01-05 01:39:00* Test Item Value Reference Range Interpretation Comments Blood Culture (test code = 19051834) NO GROWTH AFTER 5 DAYS, FINAL REPORT [facility] CenterBedside Kztvbkz0116-74-11 08:10:00* Test Item Value Reference Range Interpretation Comments Bedside Glucose (test code = 44135-4) 190 70-120 H Meter ID: [id number] [facility]lothian Medical CenterUrine Culture 2017-09-01 06:38:00* Test Item Value Reference Range Interpretation Comments Urine Culture (test code = 630-4) Organism: PSEUDOMONAS AERUGINOSA [facility] CenterUrine Bjveqlh7276-90-64 06:38:00* Test Item Value Reference Range Interpretation Comments Urine Culture (test code = 630-4) Organism: PSEUDOMONAS AERUGINOSA [facility] CenterUrine Dxlkhdp6417-27-46 06:38:00* Test Item Value Reference Range Interpretation Comments Urine Culture (test code = 630-4) Organism: PSEUDOMONAS AERUGINOSA [facility] CenterBlood Rmgokyk4700-82-38 01:39:00* Test Item Value Reference Range Interpretation Comments Blood Culture (test code = 95223312) NO GROWTH AFTER 72 HOURS [facility] Gcjwy1896-80-36 05:13:00* Test Item Value Reference Range Interpretation Comments Sodium Level (test code = 2951-2) 136 136-145 [facility] CenterPotassium Hsitr3184-52-09 05:13:00* Test Item Value Reference Range Interpretation Comments Potassium Level (test code = 2823-3) 4.7 3.5-5.1 [facility] CenterChloride Pqxqb5906-57-78 05:13:00* Test Item Value Reference Range Interpretation Comments Chloride Level (test code = 2075-0) 109 98-107 H [facility] CenterCarbon Dioxide Gwppm1423-28-86 05:13:00* Test Item Value Reference Range Interpretation Comments Carbon Dioxide Level (test code = 2028-9) 20 22-29 L [facility] CenterAnion Vip0192-93-36 05:13:00* Test Item Value Reference Range Interpretation Comments Anion Gap (test code = 74427-3) 11.7 8-16 [facility] CenterBlood Urea Bahekjgn5677-25-54 05:13:00* Test Item Value Reference Range Interpretation Comments Blood Urea Nitrogen (test code = 3094-0) 20 7-26 [facility] CenterCreatinine2018-07-09 05:13:00* Test Item Value Reference Range Interpretation Comments Creatinine (test code = 2160-0) 1.79 0.72-1.25 H [facility] CenterBUN/Creatinine Qklii7319-53-97 05:13:00* Test Item Value Reference Range Interpretation Comments BUN/Creatinine Ratio (test code = 3097-3) 11 6-25 [facility] CenterEstimat Glomerular Filtration Rate 2017-08-31 05:13:00* Test Item Value Reference Range Interpretation Comments Estimat Glomerular Filtration Rate (test code = 85480-4) 43 >60 L Ranges were taken from the National Kidney Disease Education Program and the [facility] Kidney Foundation literature.Reference ranges:60 or greater: Dyyqfk51-74 ( for 3 consecutive months): Chronic kidney disease 15 or less: Kidney failureMethodist Midlothian Medical CenterGlucose Edtrg1805-89-52 05:13:00* Test Item Value Reference Range Interpretation Comments Glucose Level (test code = MKV1030) 165 74-118 H [facility] CenterCalcium Ytfvy2462-69-37 05:13:00* Test Item Value Reference Range Interpretation Comments Calcium Level (test code = 66796-0) 8.2 8.4-10.2 L [facility] CenterTo[facility] Tsraoghsc2994-50-24 05:11:00* Test Item Value Reference Range Interpretation Comments Total Bilirubin (test code = 1975-2) 0.5 0.2-1.2 [facility] CenterAspartate Amino Transf (AST/SGOT) 2017-08-30 05:11:00* Test Item Value Reference Range Interpretation Comments Aspartate Amino Transf (AST/SGOT) (test code = Aspartate Amino Transf (AST/SGOT)) 14 5-34 [facility] CenterAlanine Aminotransferase (ALT/SGPT) 2017-08-30 05:11:00* Test Item Value Reference Range Interpretation Comments Alanine Aminotransferase (ALT/SGPT) (test code = 1742-6) 40 0-55 [facility] Booeyjr8827-49-98 05:11:00* Test Item Value Reference Range Interpretation Comments Total Protein (test code = 2885-2) 7.4 6.5-8.1 [facility] CenterAlbumin2018-07-08 05:11:00* Test Item Value Reference Range Interpretation Comments Albumin (test code = 1751-7) 2.8 3.5-5.0 L [facility] CenterGlobulin2018-07-08 05:11:00* Test Item Value Reference Range Interpretation Comments Globulin (test code = 93008-9) 4.6 2.3-3.5 H [facility] CenterAlbumin/Globulin Nxksw7592-34-71 05:11:00 * Test Item Value Reference Range Interpretation Comments Albumin/Globulin Ratio (test code = 1759-0) 0.6 0.8-2.0 L [facility] CenterAlkaline Aebvkjufgyf4566-06-30 05:11:00* Test Item Value Reference Range Interpretation Comments Alkaline Phosphatase (test code = 6768-6) 234 40-150 H [facility] CenterWhite Blood Evomf4500-60-84 04:54:00* Test Item Value Reference Range Interpretation Comments White Blood Count (test code = 6690-2) 5.33 4.8-10.8 [facility] CenterRed Blood Nfvnv8561-14-70 04:54:00* Test Item Value Reference Range Interpretation Comments Red Blood Count (test code = 789-8) 3.61 4.3-5.7 L [facility] CenterHemoglobin2018-07-08 04:54:00* Test Item Value Reference Range Interpretation Comments Hemoglobin (test code = 98108-6) 9.4 14.0-18.0 L [facility] CenterHematocrit2018-07-08 04:54:00* Test Item Value Reference Range Interpretation Comments Hematocrit (test code = 4544-3) 29.6 38.2-49.6 L [facility] CenterMean Corpuscular Mjvjnc9377-36-16 04:54:00* Test Item Value Reference Range Interpretation Comments Mean Corpuscular Volume (test code = 787-2) 82.0 81-99 [facility] CenterMean Corpuscular Jrjrdamyew8862-53-90 04:54:00* Test Item Value Reference Range Interpretation Comments Mean Corpuscular Hemoglobin (test code = 785-6) 26.0 28-32 L [facility] CenterMean Corpuscular Hemoglobin Concent 2017-08-30 04:54:00* Test Item Value Reference Range Interpretation Comments Mean Corpuscular Hemoglobin Concent (test code = 786-4) 31.8 31-35 [facility] CenterRed Cell Distribution Thzhg0063-09-03 04:54:00* Test Item Value Reference Range Interpretation Comments Red Cell Distribution Width (test code = 32564-5) 16.5 11.7 -14.4 H [facility] CenterPlatelet Tdlqy5095-14-14 04:54:00* Test Item Value Reference Range Interpretation Comments Platelet Count (test code = 777-3) 115 140-360 L [facility] CenterNeutrophils (%) (Auto)2017-08-30 04:54:00 * Test Item Value Reference Range Interpretation Comments Neutrophils (%) (Auto) (test code = 22585-0) 73.6 38.7-80.0 [facility] CenterLymphocytes (%) (Auto)2017-08-30 04:54:00 * Test Item Value Reference Range Interpretation Comments Lymphocytes (%) (Auto) (test code = 736-9) 13.9 18.0-39.1 L [facility] CenterMonocytes (%) (Auto)2017-08-30 04:54:00* Test Item Value Reference Range Interpretation Comments Monocytes (%) (Auto) (test code = 5905-5) 9.8 4.4-11.3 [facility] CenterEosinophils (%) (Auto)2017-08-30 04:54:00 * Test Item Value Reference Range Interpretation Comments Eosinophils (%) (Auto) (test code = 713-8) 2.1 0.0-6.0 [facility] CenterBasophils (%) (Auto)2017-08-30 04:54:00* Test Item Value Reference Range Interpretation Comments Basophils (%) (Auto) (test code = 706-2) 0.2 0.0-1.0 [facility] CenterIM GRANULOCYTES %2017-08-30 04:54:00* Test Item Value Reference Range Interpretation Comments IM GRANULOCYTES % (test code = IM GRANULOCYTES %) 0.4 0.0- 1.0 [facility] CenterNeutrophils # (Auto)2017-08-30 04:54:00* Test Item Value Reference Range Interpretation Comments Neutrophils # (Auto) (test code = 751-8) 3.9 2.1-6.9 [facility] CenterLymphocytes # (Auto)2017-08-30 04:54:00* Test Item Value Reference Range Interpretation Comments Lymphocytes # (Auto) (test code = 17326-6) 0.7 1.0-3.2 L [facility] CenterMonocytes # (Auto)2017-08-30 04:54:00* Test Item Value Reference Range Interpretation Comments Monocytes # (Auto) (test code = 742-7) 0.5 0.2-0.8 [facility] CenterEosinophils # (Auto)2017-08-30 04:54:00* Test Item Value Reference Range Interpretation Comments Eosinophils # (Auto) (test code = 711-2) 0.1 0.0-0.4 [facility] CenterBasophils # (Auto)2017-08-30 04:54:00* Test Item Value Reference Range Interpretation Comments Basophils # (Auto) (test code = 704-7) 0.0 0.0-0.1 [facility] CenterAbsolute Immature Granulocyte (auto 2017-08-30 04:54:00* Test Item Value Reference Range Interpretation Comments Absolute Immature Granulocyte (auto (shin t code = Absolute Immature Granulocyte (auto) 0.02 0-0.1 [facility] CenterLactic Acid Kbmzu5259-45-07 02:07:00* Test Item Value Reference Range Interpretation Comments Lactic Acid Level (test code = Lactic Acid Level) 6.9 4.5- 19.8 [facility] CenterLactic Acid Rtlxm0828-18-96 02:07:00* Test Item Value Reference Range Interpretation Comments Lactic Acid Level (test code = Lactic Acid Level) 6.9 4.5- 19.8 [facility] CenterLactic Acid Eohhg1639-92-24 02:07:00* Test Item Value Reference Range Interpretation Comments Lactic Acid Level (test code = Lactic Acid Level) 6.9 4.5- 19.8 [facility] CenterUrine Bfual9539-44-78 01:57:00* Test Item Value Reference Range Interpretation Comments Urine Color (test code = 5778-6) RED YELLOW H [facility] CenterUrine Zwfgurn0873-71-95 01:57:00* Test Item Value Reference Range Interpretation Comments Urine Clarity (test code = 59454-6) CLOUDY CLEAR H [facility] CenterUrine Specific Bvxqiex5565-17-14 01:57:00 * Test Item Value Reference Range Interpretation Comments Urine Specific [place] (test code = 5811-5) 1.020 1.010-1.02 5 [facility] CenterUrine pB0148-13-28 01:57:00* Test Item Value Reference Range Interpretation Comments Urine pH (test code = 77546-0) 6 5-7 [facility] CenterUrine Leukocyte Pwbpyuth3448-05-04 01:57:00* Test Item Value Reference Range Interpretation Comments Urine Leukocyte Esterase (test code = 5799-2) 2+ NEGATIVE H [facility] Dpkiptq1506-55-19 01:57:00* Test Item Value Reference Range Interpretation Comments Urine Nitrite (test code = 25394-2) NEGATIVE NEGATIVE [facility] Icyzdyd9966-81-26 01:57:00* Test Item Value Reference Range Interpretation Comments Urine Protein (test code = 5804-0) 3+ NEGATIVE H [facility] Glucose (UA)2017-08-29 01:57:00* Test Item Value Reference Range Interpretation Comments Urine Glucose (UA) (test code = 2349-9) NEGATIVE NEGATIVE [facility] Pobersh1882-91-29 01:57:00* Test Item Value Reference Range Interpretation Comments Urine Ketones (test code = 58522-4) NEGATIVE NEGATIVE [facility] Hqezqjuqnvkk8521-54-09 01:57:00* Test Item Value Reference Range Interpretation Comments Urine Urobilinogen (test code = 74689-4) 0.2 0.2-1 [facility] CenterUrine Xeiuxbfsn1273-31-44 01:57:00* Test Item Value Reference Range Interpretation Comments Urine Bilirubin (test code = 1978-6) 1+ NEGATIVE H Confirmatory test currently unavailable. False positive results may occur.[facility] CenterUrine Cihvq0800-91-68 01:57:00* Test Item Value Reference Range Interpretation Comments Urine Blood (test code = 40737-4) 3+ NEGATIVE H [facility] BYP7582-80-39 01:57:00* Test Item Value Reference Range Interpretation Comments Urine WBC (test code = 5821-4) 50- 0-5 H [facility] CenterUrine OOA9444-93-98 01:57:00* Test Item Value Reference Range Interpretation Comments Urine RBC (test code = 58503-4) 50- 0-5 H [facility] CenterUrine Pvvgoshk7290-07-90 01:57:00* Test Item Value Reference Range Interpretation Comments Urine Bacteria (test code = 07560-3) FEW NONE [facility] CenterUrine Epithelial Zpbkg2559-41-37 01:57:00 * Test Item Value Reference Range Interpretation Comments Urine Epithelial Cells (test code = 03257-3) RARE NONE [facility] CenterCHEST SINGLE (PORTABLE)2017-08-29 01:52:00 [facility] [address] [place] [address] Patient Name: MANJIT LUO MR #: [id number] : 1980 Age/Sex: 37/M Req #: [id number] Adm Physician: Ordered by: MARIELLE MARSH MD Report #: [id number] Location: ER Room/Bed: Procedure: [id number] DX/CHEST SINGLE (ALONDRA BLE) Exam Date: 08/29/17 [...] 08/29/17152 COPY TO: MARIELLE MARSH MD Magnesium Wibat9497-37-53 00:45:00* Test Item Value Reference Range Interpretation Comments Magnesium Level (test code = 32492-8) 1.3 1.3-2.1 [facility] [place] [address] Patient Name: MANJIT LUO MR #: [id number] : 1980 Age/Sex: 36/M Req #: [id number] Adm Physician: Ordered by: MARGAUX HILLS MD Report #: [id number] Location: ER Room/Bed: Procedure: [id number] CT/CT ABDOMEN/PELVIS WO Exam Date: 01/25/17 Exam [...]
--- NOTE | 2019-12-12 01:54 | NUR ---
RECEIVED REPORT FROM ANGELIQUE YEAGER NURSE. PATIENT ARRIVED VIA STRETCHER WITH BELONGINGS. PATIENT IN PAIN. PATIENT WAS ORIENTATED TO THE ROOM. CALL LIGHT WITHIN REACH. PATIENT IS A&OX3
[2019-12-12] MEDS: ONDANSETRON HCL INJ 2MG/ML 2ML 2 MG/ML VIAL IV PRN ×6 (02:01→19:35)
[2019-12-12] MEDS: MORPHINE SULFATE INJ 4 MG/ML INJ 1ML IV PRN ×5 (02:13→19:35)
[2019-12-12] MEDS ORDERED: CALCITRIOL0.5 MCG PO (02:23)
[2019-12-12] MEDS ORDERED: NOVOLOG100 UNIT/1 SC (02:23)
--- NOTE | 2019-12-12 07:07 | NUR ---
GAVE BEDSIDE SHIFT REPORT TO ONCOMING NURSE. CALL LIGHT WITHIN REACH. PATIENT IN BED. HOURLY ROUNDING PERFORMED
[2019-12-12] MEDS ORDERED: INSULIN REGULAR, HUMAN 100 UNIT/1 ML 3ML VIAL SQ SCH (07:30)
[2019-12-12] MEDS: NIFEDIPINE CR 30 MG TAB PO SCH ×2 (10:36→17:15)
[2019-12-12] MEDS: INSULIN LISPRO 100 UNIT/1 ML 3ML VIAL SQ SCH ×5 (11:30→21:00)
--- NOTE | 2019-12-12 13:27 | History and Physical ---
CHIEF COMPLAINT: Urinary tract infection complicated with suprapubic Barcenas catheter with foul odorous urine. The patient also has left flank pain. He has low-grade fever. Generalized weakness. HISTORY OF PRESENT ILLNESS: The patient is a 39-year-old male with right nephrectomy and neurogenic urinary bladder with suprapubic catheter, came in with foul odorous urine. The patient also has end-stage renal disease on peritoneal dialysis. He has type 1 diabetes and has been diabetic for years. He also had right lower extremity multiple knee surgical intervention due to previous work-related injury. The patient also has history of cholecystectomy. He had suprapubic catheter. He had peritoneal dialysis catheter access. The patient has urinalysis done in the emergency room and found to have significant 4+ blood, 1+ leukocyte esterase, wbc greater than 50 with many bacteria. Microbiology is still pending. The patient's chest x-ray otherwise unremarkable. The patient is admitted and meropenem initiated. PAST MEDICAL HISTORY: Right nephrectomy, neurogenic urinary bladder secondary to complication of diabetes type 1, end-stage renal disease, on peritoneal dialysis, suprapubic catheter, recurrent urinary tract infection complicated due to neurogenic urinary bladder, right nephrectomy secondary to obstruction, multiple right lower extremity surgical intervention at the knee and lower extremity, diabetes type 1 on insulin therapy, electrolyte disorder corrected, history of recurrent hyperkalemia with treatment, ambulation with a cane, hypertension, osteoarthritis of lower extremity, cholecystectomy, again right nephrectomy, peritoneal dialysis catheter placement, and suprapubic catheter placement. SOCIAL HISTORY: The patient does not smoke or use alcohol. No recreational drug use. 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 The patient does not smoke. REVIEW OF SYSTEMS: Left flank pain. Foul odor urine. Generalized weakness. Low-grade fever at home. Some nausea, but without vomiting. No new neurological deficit. No new focal deficit. No headaches. No visual changes. Suprapubic abdominal pain. PHYSICAL EXAMINATION: VITAL SIGNS: Temperature is 99.1, blood pressure 178/101, pulse rate 86, and respirations 20. GENERAL: The patient is awake, alert, not in any distress. HEENT: Normocephalic and atraumatic. Anicteric. NECK: Supple grossly. PULMONARY: Diminished breath sounds. CARDIOVASCULAR: Regular rate and rhythm. ABDOMEN: Suprapubic catheter. Peritoneal dialysis catheter. Generalized discomfort without any guarding or rebound tenderness. EXTREMITIES: Right extensive lower extremity surgical intervention of the right knee and lower extremity leg area. There is no cyanosis. NEUROLOGIC: Diabetic neuropathy with neurogenic urinary bladder, but otherwise no other focal deficit. LABORATORY DATA: Chemistry; sodium is 136, potassium 5, chloride 106, bicarb 18, BUN is 47, creatinine 7.7, glucose 264, and calcium is 5.6. WBC is 4.6, hemoglobin is 11, hematocrit 37, and platelets 135. Urinalysis; cloudy urine, 2+ glucose, 4+ blood, leukocyte esterase 1+, wbc's greater than 50 with many bacteria. Chest x-ray is unremarkable. IMPRESSION: 1. Recurrent complicated urinary bladder infection with suprapubic catheter. Follow orders. Urine with glycosuria and many bacteria. 2. Neurogenic urinary bladder secondary to diabetes type 1 complication. 3. End-stage renal disease, on peritoneal dialysis. 4. Electrolyte disorder. 5. Multiple chronic baseline problems. PLAN: Continue with meropenem IV. Home medication resumed. Insulin sliding scale coverage. Consultation with Dr. Castro Jalloh and Dr. Lew Karimi. Peritoneal dialysis. Check urine culture and sensitivity. Continue with home medication. Insulin. MD SADA Haywood/MODL /[id number]
--- NOTE | 2019-12-12 13:42 | NUR ---
dialysis notified of need for PD tonight. dialysis staff will come to connect patient this evening.
--- NOTE | 2019-12-12 14:32 | Progress Note ---
DATE: Initial Nephrology Consultation/Continuation Of Care Note REASON FOR CONSULTATION: To provide peritoneal dialysis, the patient has ESRD. HISTORY OF PRESENT ILLNESS: Mr. Lozano is a 39-year-old male, who is well known to me from previous admissions. Also, he is a patient of Dr. Karimi, he is a peritoneal dialysis patient. The patient comes to the hospital because of complaining of some back pain and some dysuria. The patient is being admitted for urinary tract infection. The patient has end-stage renal disease, he gets peritoneal dialysis, he is status post nephrectomy in the past. PAST MEDICAL HISTORY: 1. Hypertension. 2. Chronic kidney disease stage 5. 3. Right nephrectomy. REVIEW OF SYSTEMS: As per HPI. PHYSICAL EXAMINATION: VITAL SIGNS: Blood pressure 157/97, pulse 75, respirations 20. GENERAL: The patient is in no acute distress. HEENT: No increased JVD. CARDIOVASCULAR: Regular rate and rhythm. LUNGS: Clear to auscultation bilaterally. ABDOMEN: Positive bowel sounds. Nontender, nondistended. The patient has a Tenckhoff catheter in place. EXTREMITIES: No edema, cyanosis, or clubbing. LABORATORY RESULTS: Hemoglobin and hematocrit 11 and 37 respectively, platelet counts 135,000, white count 4.6. Urinalysis shows protein, it shows 4+ blood, negative nitrate, leukocyte esterase is 1+. He has more than 50 red cells and white cells and many bacteria. Sodium 136, potassium 5, chloride 103, bicarbonate 18, BUN and creatinine 47 and 7.5 respectively. IMPRESSION: 1. Chronic kidney disease stage 5. 2. Urinary tract infection. 3. History of multiple urinary tract infections. 4. Hypocalcemia. PLAN: The patient has end-stage renal disease. He gets a peritoneal dialysis. We will go ahead and order the peritoneal dialysis, they will come set him up, he will undergo peritoneal dialysis every night. The patient is hypocalcemic. Even when you correct the calcium for the albumin, his calcium comes out to be about 7 to 7.2. I am going to order an ionized calcium tomorrow. He was given calcium gluconate in the emergency room. I am going to start him on calcium carbonate 1000 mg orally three times a day and we will check an ionized calcium tomorrow. I will follow the patient with you. Thank you Dr. Potts for allowing me to participate in the care of this patient with you. Ather MD LAMAR Delacruz/NOREEN /[id number]
[2019-12-12] MEDS: MAGNESIUM OXIDE 400 MG TAB PO SCH ×2 (15:25→22:30)
[2019-12-12] MEDS: SODIUM BICARBONATE 650 MG TAB PO SCH ×2 (15:26→22:30)
[2019-12-12] MEDS: CALCIUM CARBONATE 500 MG CHEWABLE TABS PO SCH ×2 (15:26→22:30)
[2019-12-12] MEDS: CALCITRIOL 0.25 MCG CAP PO SCH (17:15)
--- NOTE | 2019-12-12 19:15 | NUR ---
Received pt in bed awake and alert. C/o Nausea, will med per APR. No s/sx of acute distress noted. Bed in low and locked position. Call north and personal items within reach. Will cont to mon pt.
[2019-12-13] VITALS (7 sets, daily range): BP systolic 105–140; BP diastolic 72–88
[2019-12-13] MEDS: MEROPENEM 500MG/ NS 50ML 50 ML IV SCH (00:45)
[2019-12-13] MEDS ORDERED: SODIUM CHLORIDE 0.9% 250ML 250 ML ONE (00:57)
[2019-12-13] MEDS: ONDANSETRON HCL INJ 2MG/ML 2ML 2 MG/ML VIAL IV PRN ×4 (04:20→20:40)
[2019-12-13 05:24] LABS: BASOPHILS % 0.9 % (0.0-1.0); EOSINOPHILS # (AUTO) 0.2 (0.0-0.4); EOSINOPHILS % 4.3 % (0.0-6.0); HEMATOCRIT 36.8 % (38.2-49.6); LYMPHOCYTES # (AUTO) 1.1 (1.0-3.2); LYMPHOCYTES % 31.3 % (18.0-39.1); MEAN CORPUSCULAR HEMOGLOBIN 24.4 pg (28-32); MEAN CORPUSCULAR HGB CONC 29.9 g/dL (31-35); MEAN CORPUSCULAR VOLUME 81.6 fL (81-99); MONOCYTES # (AUTO) 0.3 (0.2-0.8); MONOCYTES % 7.4 % (4.4-11.3); NEUTROPHILS % 55.5 % (38.7-80.0); PLATELET COUNT 119 x10e3/uL (140-360); RED BLOOD COUNT 4.51 x10e6/uL (4.3-5.7); RED CELL DISTRIBUTION WIDTH 16.2 % (11.7-14.4)
[2019-12-13 05:43] LABS: ALBUMIN 2.1 g/dL (3.5-5.0); ALBUMIN/GLOBULIN RATIO 0.4 (0.8-2.0); ANION GAP 15.4 mmol/L (8-16); CREATININE, SERUM 7.78 mg/dL (0.72-1.25); POTASSIUM 5.4 mmol/L (3.5-5.1)
--- NOTE | 2019-12-13 06:24 | NUR ---
Call placed to md regarding Calcium level of 6.0. Spoke to Dr. Potts
[2019-12-13] MEDS: INSULIN LISPRO 100 UNIT/1 ML 3ML VIAL SQ SCH ×7 (07:30→20:48)
[2019-12-13 08:14] LABS: HYPOCHROMASIA SLIGHT; PLATELET ESTIMATE SLIGHTLY DECREASED; RBC MORPHOLOGY COMMENT NORMAL
[2019-12-13 08:15] LABS: PLATELET MORPHOLOGY COMMENT NORMAL
[2019-12-13] MEDS ORDERED: CALCIUM GLUCONATE 10% INJ 4.65 MEQ in SODIUM CHLORIDE 0.9% 50ML 50 ML IV ONE (09:00)
[2019-12-13] MEDS: MAGNESIUM OXIDE 400 MG TAB PO SCH ×3 (09:32→20:48)
[2019-12-13] MEDS: SODIUM BICARBONATE 650 MG TAB PO SCH ×3 (09:33→20:48)
[2019-12-13] MEDS: NIFEDIPINE CR 30 MG TAB PO SCH ×2 (09:33→16:31)
[2019-12-13] MEDS: CALCITRIOL 0.25 MCG CAP PO SCH ×2 (09:33→17:28)
[2019-12-13] MEDS: CALCIUM CARBONATE 500 MG CHEWABLE TABS PO SCH ×3 (09:33→20:48)
[2019-12-13] MEDS: MORPHINE SULFATE INJ 4 MG/ML INJ 1ML IV PRN ×3 (11:00→20:40)
--- NOTE | 2019-12-13 13:28 | Progress Note ---
DATE: 12/13/2019 Renal Progress Note SUBJECTIVE: Events over the past 24 hours have been noted. The patient complains of some nausea today. Repeat peritoneal dialysis was done last night, 1380 mL were ultrafiltered. PHYSICAL EXAMINATION: VITAL SIGNS: Blood pressure 140/88, pulse 76, and respiration 20. GENERAL: The patient is in no acute distress. HEENT: No increased JVD. The patient does seem to have a little bit of increased facial plethora. CARDIOVASCULAR: Regular rate and rhythm. LUNGS: Decreased breath sounds at the bases bilaterally. ABDOMEN: Positive bowel sounds. The patient has a Tenckhoff catheter in place. EXTREMITIES: No edema, cyanosis, or clubbing. LABORATORY RESULTS: Sodium 139, potassium 5.4, chloride 109, bicarbonate 20, BUN and creatinine 53 and 7.78 effectively, calcium 6.0, and ionized calcium 0.8. Albumin 2.1. Hemoglobin and hematocrit 11 and 37 respectively. The urine culture shows Enterococcus species and 2 gram-negative organisms, but this is just a preliminary report. IMPRESSION: 1. Chronic kidney disease, stage 5. 2. History of nephrectomy in the past. 3. Complicated urinary tract infection. 4. Hyperkalemia. 5. Hypocalcemia. 6. Metabolic acidosis. PLAN: The patient underwent dialysis yesterday. We did 5 cycles. We used 2.5% solution with a dwell time of an hour and a half. The patient's potassium is a little bit elevated today. We will continue with the same dialysis prescription. If it continues to be high, we may have to increase the number of exchanges with the peritoneal dialysis. In the meantime, he is hypocalcemic. He got one amp of calcium gluconate earlier this morning. He is on Rocaltrol and also on Tums. I started the Tums yesterday at 1000 mg 3 times a day. I will increase it to 1500 mg 3 times a day. Also, he is on sodium bicarbonate for his acidosis. He has a urinary tract infection. He is on empiric antibiotics now. Final choice of antibiotics will be based on the final cultures and sensitivity results. Ather MD LAMAR Delacruz/NOREEN /[id number]
[2019-12-13] MEDS: FLUCONAZOLE 100 MG TAB PO SCH (14:02)
[2019-12-13] MEDS ORDERED: CALCIUM CARBONATE 500 MG CHEWABLE TABS PO SCH (15:00)
--- NOTE | 2019-12-13 19:15 | NUR ---
patient received awake, alert, lying quietly in bed. vss. no c/o pain noted. pm assessment complete. call nroth placed within reach. patient instructed to call for assistance when needed.
[2019-12-14] VITALS (8 sets, daily range): BP systolic 86–149; BP diastolic 59–94
[2019-12-14] MEDS: MEROPENEM 500MG/ NS 50ML 50 ML IV SCH ×2 (00:39→23:15)
[2019-12-14] MEDS: ONDANSETRON HCL INJ 2MG/ML 2ML 2 MG/ML VIAL IV PRN ×4 (00:45→20:30)
[2019-12-14] MEDS: MORPHINE SULFATE INJ 4 MG/ML INJ 1ML IV PRN ×5 (00:45→20:30)
[2019-12-14] MEDS: CALCITRIOL 0.25 MCG CAP PO SCH ×2 (08:23→16:40)
[2019-12-14] MEDS: MAGNESIUM OXIDE 400 MG TAB PO SCH ×3 (08:23→20:29)
[2019-12-14] MEDS: NIFEDIPINE CR 30 MG TAB PO SCH ×2 (08:23→16:39)
[2019-12-14] MEDS: SODIUM BICARBONATE 650 MG TAB PO SCH ×3 (08:24→20:29)
[2019-12-14] MEDS: CALCIUM CARBONATE 500 MG CHEWABLE TABS PO SCH ×3 (08:24→20:29)
[2019-12-14] MEDS: INSULIN LISPRO 100 UNIT/1 ML 3ML VIAL SQ SCH ×7 (09:09→20:38)
[2019-12-14] MEDS ORDERED: PROMETHAZINE HCL 25 MG TAB PO PRN (10:30)
[2019-12-14] MEDS: FLUCONAZOLE 100 MG TAB PO SCH (12:32)
[2019-12-14] MEDS ORDERED: EPOETIN ALFA-EPBX 10,000 UNIT/ML VIAL SC SCH (18:00)
--- NOTE | 2019-12-14 19:01 | NUR ---
SBAR REPORT RECEIVED AT BEDSIDE, PT AOX4, ABLE TO MAKE NEEDS KNOWN, PERITONEAL DIALYSIS STARTED AT BEGINNING OF SHIFT DURING SHIFT CHANGE, SKIN WARM DRY, PATIENT INFORMED OF NEXT SCHEDULE PAIN MEDICATION CALL LIGHT WITHIN REACH, COMFORT LEVEL INCREASED
--- NOTE | 2019-12-14 19:20 | Progress Note ---
DATE: 12/14/2019 Renal Progress Note SUBJECTIVE: the patient underwent peritoneal dialysis last night . Events of the past 24 hours have been noted. No chest pain. No shortness of breath. PHYSICAL EXAMINATION: VITAL SIGNS: Blood pressure 138/90 and pulse 72. GENERAL: The patient is in no acute distress. HEENT: No increased JVD. CARDIOVASCULAR: Regular rate and rhythm. LUNGS: Clear to auscultation bilaterally. ABDOMEN: The patient has a PD catheter in place. EXTREMITIES: No significant edema. LABORATORY RESULTS: There are no new labs from today. IMPRESSION: 1. Urinary tract infection, complicated. 2. Chronic kidney disease, stage 5. 3. End-stage renal disease. PLAN: The patient will get a peritoneal dialysis again today. We will alternate 1.5% to 2.5% dextrose solution. He will undergo five exchanges volume will be 2 L. Labs are going to be checked again tomorrow and entire electrolyte panel will be checked. Ather MD LAMAR Delacruz/NOREEN /[id number]
[2019-12-15] VITALS (9 sets, daily range): BP systolic 94–131; BP diastolic 62–87
[2019-12-15] MEDS: ONDANSETRON HCL INJ 2MG/ML 2ML 2 MG/ML VIAL IV PRN ×4 (01:12→14:30)
[2019-12-15] MEDS: MORPHINE SULFATE INJ 4 MG/ML INJ 1ML IV PRN ×6 (01:12→23:19)
[2019-12-15 05:21] LABS: BASOPHILS % 0.5 % (0.0-1.0); EOSINOPHILS # (AUTO) 0.1 (0.0-0.4); EOSINOPHILS % 3.4 % (0.0-6.0); HEMATOCRIT 37.1 % (38.2-49.6); MEAN CORPUSCULAR HEMOGLOBIN 24.1 pg (28-32); MEAN CORPUSCULAR HGB CONC 29.6 g/dL (31-35); MEAN CORPUSCULAR VOLUME 81.2 fL (81-99); MONOCYTES # (AUTO) 0.3 (0.2-0.8); MONOCYTES % 7.8 % (4.4-11.3); NEUTROPHILS # (AUTO) 2.4 (2.1-6.9); PLATELET COUNT 115 x10e3/uL (140-360); RED BLOOD COUNT 4.57 x10e6/uL (4.3-5.7); RED CELL DISTRIBUTION WIDTH 16.5 % (11.7-14.4)
[2019-12-15 05:35] LABS: ANION GAP 17.1 mmol/L (8-16); CREATININE, SERUM 7.73 mg/dL (0.72-1.25); POTASSIUM 5.1 mmol/L (3.5-5.1)
[2019-12-15 05:39] LABS: CALCIUM 6.2 mg/dL (8.4-10.2)
[2019-12-15 05:48] LABS: MAGNESIUM 2.1 MG/DL (1.3-2.1); PHOSPHORUS 6.7 MG/DL (2.3-4.7)
--- NOTE | 2019-12-15 05:56 | NUR ---
lab reporting calcium 6.2, MD Potts made aware that patient is nauseated, given zofran with no relief, ordered to start reglan 5mg Q4H IV PRN, order carried out
[2019-12-15 06:08] LABS: THYROID STIMULATING HORMONE 2.687 uIU/mL (0.350-4.940)
[2019-12-15 06:18] LABS: ANISOCYTOSIS SLIGHT; HYPOCHROMASIA SLIGHT; PLATELET ESTIMATE SLIGHTLY DECREASED; PLATELET MORPHOLOGY COMMENT NORMAL; RBC MORPHOLOGY COMMENT NORMAL
[2019-12-15] MEDS: METOCLOPRAMIDE HCL 10 MG/2ML VIAL IV PRN ×3 (06:19→23:19)
[2019-12-15] MEDS: INSULIN LISPRO 100 UNIT/1 ML 3ML VIAL SQ SCH ×7 (07:30→21:00)
[2019-12-15] MEDS: MAGNESIUM OXIDE 400 MG TAB PO SCH ×3 (08:23→20:41)
[2019-12-15] MEDS: SODIUM BICARBONATE 650 MG TAB PO SCH ×3 (08:24→20:41)
[2019-12-15] MEDS: CALCITRIOL 0.25 MCG CAP PO SCH ×2 (08:24→16:45)
[2019-12-15] MEDS: NIFEDIPINE CR 30 MG TAB PO SCH (08:24)
[2019-12-15] MEDS: CALCIUM CARBONATE 500 MG CHEWABLE TABS PO SCH ×3 (08:24→20:41)
[2019-12-15] MEDS ORDERED: CALCIUM GLUCONATE 10% INJ 9.3 MEQ in SODIUM CHLORIDE 0.9% 100 ML 100 ML IV ONE (09:00)
[2019-12-15] MEDS: FLUCONAZOLE 100 MG TAB PO SCH (12:57)
--- NOTE | 2019-12-15 14:24 | NUR ---
INFECTIOUS DISEASE CONSULT NOTE DR. NAOMY LOWE CC: fatigue HPI: 39-year-old male well known to me from clinic, [facility] with right nephrectomy and neurogenic urinary bladder with suprapubic catheter, came in with foul odorous urine. The patient also has end-stage renal disease on peritoneal dialysis. He has type 1 diabetes and has been diabetic for years. He also had right lower extremity multiple knee surgical intervention due to previous work-related injury. The patient also has history of cholecystectomy. He had suprapubic catheter. He had peritoneal dialysis catheter access. The patient has urinalysis done in the emergency room and found to have significant 4+ blood, 1+ leukocyte esterase, wbc greater than 50 with many bacteria. Microbiology is still pending. The patient's chest x-ray otherwise unremarkable. The patient is admitted and meropenem initiated. PAST MEDICAL HISTORY: Right nephrectomy, neurogenic urinary bladder secondary to complication of diabetes type 1, end-stage renal disease, on peritoneal dialysis, suprapubic catheter, recurrent urinary tract infection complicated due to neurogenic urinary bladder, right nephrectomy secondary to obstruction, multiple right lower extremity surgical intervention at the knee and lower extremity, diabetes type 1 on insulin therapy, electrolyte disorder corrected, history of recurrent hyperkalemia with treatment, ambulation with a cane, hypertension, osteoarthritis of lower extremity, cholecystectomy, again right nephrectomy, peritoneal dialysis catheter placement, and suprapubic catheter placement. SOCIAL HISTORY: The patient does not smoke or use alcohol. No recreational drug use. 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 Surgical: per above, nephrectomy REVIEW OF SYSTEMS: Left flank pain. Foul odor urine. Generalized weakness. Low-grade fever at home. Some nausea, but without vomiting. No new neurological deficit. No new focal deficit. No headaches. No visual changes. Suprapubic abdominal pain. PHYSICAL EXAM VS: per chart GENERAL: The patient is awake, alert, not in any distress. HEENT: Normocephalic and atraumatic. NECK: no JVD, supple PULMONARY: Diminished breath sounds. CARDIOVASCULAR: Regular rate and rhythm. s1. s2. no s3. s4 ABDOMEN: Suprapubic catheter. Peritoneal dialysis catheter. Generalized discomfort without any guarding or rebound tenderness. EXTREMITIES: Right extensive lower extremity surgical intervention of the right knee and lower extremity leg area. There is no cyanosis. NEUROLOGIC: Diabetic neuropathy with neurogenic urinary bladder, but otherwise no other focal deficit. LABORATORY DATA: per chart RADIOLOGY: per chart IMPRESSION: UTI Bacteruria Colonization with MDRO PLAN: can d/c when okay with others fosfomycin given x1 dose resume hipprex 1gm po BID upon discharge and oral Ceftin MWF See me in clinic in 2 weeks Petra Carroll MSN, [employer], AGACNP-BC Naomy Lowe M.D.
[2019-12-15] MEDS ORDERED: FOSFOMYCIN TROMETHAMINE 3 GM PACKET PO ONE (15:30)
--- NOTE | 2019-12-15 16:07 | Progress Note ---
DATE: 12/15/2019 Renal Progress Note SUBJECTIVE: Events over the past 24 hours have been noted. He has no complaints. No chest pain. No shortness of breath. A peritoneal dialysis was done last night, 1.6 L was removed. PHYSICAL EXAMINATION: VITAL SIGNS: Blood pressure 98/62, pulse 76, and respiration 18. GENERAL: The patient is in no acute distress. HEENT: No increased JVD. CARDIOVASCULAR: Regular rate and rhythm. LUNGS: Clear to auscultation bilaterally. No coarse breath sounds. No wheezes. ABDOMEN: Positive bowel sounds. The patient has a Tenckhoff PD catheter in place. EXTREMITIES: The patient has trace edema of the right leg mainly. LABORATORY DATA: Sodium 140, potassium 5.1, chloride 105, bicarbonate 23, BUN and creatinine 51 and 7.7 respectively. Calcium is 6.2, phosphorus 6.7, and magnesium 2.1. IMPRESSION/PLAN: 1. Urinary tract infection, complicated. 2. Chronic kidney disease, stage 5. 3. Hyperphosphatemia. 4. Hypocalcemia. 5. Anemia of chronic kidney disease, corrected. 6. Metabolic acidosis. PLAN: The patient underwent dialysis yesterday, peritoneal dialysis, 1.6 L were ultrafilter. His blood pressure is a little bit low today. We will hold nifedipine for systolic blood pressure less than 100. His hemoglobin has been remaining 11 since he has been here. will be discontinued. He got one amp of calcium gluconate for the hypocalcemia. For hypocalcemia, he is also on Tums 1500 three times a day and also on Rocaltrol twice a day. He has hyperphosphatemia. I am going to start him on some Renvela 800 mg p.o. t.i.d. with meals as a phosphorus binder. Right now, his calcium-phosphorus product is very high, so I do not want to start calcium acetate, which is PhosLo, maybe once the phosphorus comes down and the if calcium is still low, we can switch the Renvela to calcium acetate at that time. Want to keep the calcium-phosphorus product low to prevent calcium phosphate deposition. Ather MD LAMAR Delacruz/NOREEN /[id number]
[2019-12-15] MEDS: SEVELAMER CARBONATE 800 MG TAB PO SCH (16:45)
--- NOTE | 2019-12-15 22:50 | NUR ---
RECEIVED BEDSIDE SHIFT REPORT FROM PREVIOUS NURSE. PATIENT IN BED. CALL LIGHT WITHIN REACH.
[2019-12-16 00:47] VITALS: BP 144/91
[2019-12-16] MEDS: METOCLOPRAMIDE HCL 10 MG/2ML VIAL IV PRN ×3 (03:19→12:24)
[2019-12-16] MEDS: MORPHINE SULFATE INJ 4 MG/ML INJ 1ML IV PRN ×3 (03:19→12:24)
[2019-12-16 04:00] VITALS: BP 134/91
[2019-12-16 06:23] LABS: ALBUMIN 2.3 g/dL (3.5-5.0); ANION GAP 16.1 mmol/L (8-16); CREATININE, SERUM 7.89 mg/dL (0.72-1.25); POTASSIUM 5.1 mmol/L (3.5-5.1)
[2019-12-16 06:30] LABS: CALCIUM 6.2 mg/dL (8.4-10.2)
--- NOTE | 2019-12-16 06:35 | NUR ---
CALLED DR. LLOYD AND TALKED TO HIM ABOUT THE PATIENT HAVING A CRITICAL CALCIUM OF 6.2. DR. LLOYD SAID "OKAY. THANK YOU." THEN HE HUNG UP.
--- NOTE | 2019-12-16 07:16 | NUR ---
GAVE BEDSIDE SHIFT REPORT TO ONCOMING NURSE. CALL LIGHT WITHIN REACH. PATIENT IN BED. HOURLY ROUNDING PERFORMED.
[2019-12-16] MEDS: INSULIN LISPRO 100 UNIT/1 ML 3ML VIAL SQ SCH ×4 (07:30→12:00)
[2019-12-16 08:07] VITALS: BP 134/91
[2019-12-16 08:17] VITALS: BP 140/93
[2019-12-16] MEDS ORDERED: CALCIUM GLUCONATE 10% INJ 13.95 MEQ in SODIUM CHLORIDE 0.9% 100 ML 100 ML IV ONE (09:00)
[2019-12-16] MEDS ORDERED: NIFEDIPINE CR 30 MG TAB PO SCH (09:00)
[2019-12-16] MEDS: MAGNESIUM OXIDE 400 MG TAB PO SCH (09:27)
[2019-12-16] MEDS: SEVELAMER CARBONATE 800 MG TAB PO SCH ×2 (09:27→12:24)
[2019-12-16] MEDS: CALCIUM CARBONATE 500 MG CHEWABLE TABS PO SCH (09:27)
[2019-12-16] MEDS: CALCITRIOL 0.25 MCG CAP PO SCH (09:27)
[2019-12-16] MEDS: SODIUM BICARBONATE 650 MG TAB PO SCH (09:27)
--- NOTE | 2019-12-16 10:35 | Discharge Summary ---
PCP: Donald Potts MD. CONSULTANTS: 1. Ciro Blum MD. 2. Lew Karimi MD. 3. Castro Jalloh MD. FINAL DIAGNOSES: 1. Complicated urinary tract infection associated with indwelling suprapubic Barcenas catheter with recurrent infection. 2. Status post fever. 3. Complicated diabetes type 1 with neurogenic urinary bladder with urinary retention, status post suprapubic catheter placement and recurrent urinary tract infection, neuropathy. 4. End-stage renal disease on peritoneal dialysis. 5. History of right nephrectomy secondary to nonfunctional kidney and also obstruction. HOSPITAL COURSE: A 39 years male, presented to the hospital with fever, not feeling well. The patient was diagnosed with complicated urinary tract infection with bacterial growth to be Proteus vulgaris and Enterococcus faecalis. The patient was placed on antibiotics. He also received peritoneal dialysis. He does have chronic hypocalcemia on treatment. The patient did receive calcium gluconate. The patient is doing better and his fever resolved. His weakness has improved. TSH is 2.68. The potassium is under control. Urinalysis; cloudy urine, 2+ glucose, 4+ blood, large leukocyte esterase with large wbc and many bacteria and the microbiology grew out to be gram-negative bacilli with Proteus vulgaris and Enterococcus faecalis and both sensitive to antibiotic that can be taken orally. At this time, the patient is stable, he is doing much better. He will go home with the following instructions. 1. To resume home medication. 2. New prescriptions of amoxicillin 5 mg t.i.d. for two weeks 14 days, Cipro 250 mg b.i.d. for 14 days, Os-Vishal D Plus 500 b.i.d. and Zofran p.r.n. 3. Follow up as instructed. 4. Suprapubic Barcenas catheter care. 5. Continue with peritoneal dialysis at home. 6. We will resume the patient insulin and renal diabetic diet at home. The patient will follow up with me in my office next week. Instruction for the patient to follow up with his specialist as well. The patient is stable and will be discharged home today. MD Sherice HaywoodT/MODL /[id number]
[2019-12-16] MEDS: FLUCONAZOLE 100 MG TAB PO SCH (12:23)
[2019-12-16] MEDS ORDERED: OS-CAL 500+D T1 EACH PO (12:50)
[2019-12-16] MEDS ORDERED: ZOFRAN4 MG PO (12:51)
[2019-12-16] MEDS ORDERED: CIPRO500 MG PO (12:51)
--- NOTE | 2019-12-16 14:02 | Progress Note ---
DATE: 12/16/2019 Renal Progress Note SUBJECTIVE: Events over the past 24 hours have been noted. The patient has no complaint. No chest pain or shortness of breath. PHYSICAL EXAMINATION: VITAL SIGNS: Blood pressure 140/90, pulse 92. GENERAL: The patient is in no acute distress. HEENT: No increased JVD. CARDIOVASCULAR: Regular rate and rhythm. LUNGS: Clear to auscultation bilaterally. ABDOMEN: Positive bowel sounds. Nontender, nondistended. The patient has a Tenckhoff catheter. EXTREMITIES: No significant edema. LABORATORY RESULTS: Sodium 137, potassium 5.1, chloride 102, bicarbonate 24, BUN and creatinine 50 and 7.9, calcium 6.2, albumin 2.3. IMPRESSION: 1. Chronic kidney disease, stage 5. 2. Hypocalcemia. 3. Complicated urinary tract infection. PLAN: The patient underwent peritoneal dialysis last night. We did a 2.5% dextrose. We alternated 1.5% and 2.5% dextrose. The patient is still hypocalcemic. He got one amp of calcium gluconate. He is on Tums and also Rocaltrol. I have told the patient that he needs to continue taking the Tums 1500 mg three times a day until he sees Dr. Karimi and until his calcium comes up. Ather MD LAMAR Delacruz/NOREEN /[id number]
== END 2019-12-16 13:45 | disposition home or self-care (01) | DRG 698 ==
LOC: ER 23:36 → ERHOLD 12-12 01:12 → MED/SURG 12-12 01:55
PROVIDERS: ADMIT Internal Medicine; ATTEND Internal Medicine
DX: T83.518A Infection and inflammatory reaction due to other urinary catheter, initial encounter (principal); N18.6 End stage renal disease; N39.0 Urinary tract infection, site not specified; E87.2 Acidosis; I12.0 Hypertensive chronic kidney disease with stage 5 chronic kidney disease or end stage renal disease; N31.9 Neuromuscular dysfunction of bladder, unspecified; E87.5 Hyperkalemia; E83.51 Hypocalcemia; E10.22 Type 1 diabetes mellitus with diabetic chronic kidney disease; Z99.2 Dependence on renal dialysis; Z91.041 Radiographic dye allergy status; Z90.5 Acquired absence of kidney; E10.42 Type 1 diabetes mellitus with diabetic polyneuropathy; B95.2 Enterococcus as the cause of diseases classified elsewhere; B96.4 Proteus (mirabilis) (morganii) as the cause of diseases classified elsewhere; Z90.49 Acquired absence of other specified parts of digestive tract; E10.69 Type 1 diabetes mellitus with other specified complication; Z79.4 Long term (current) use of insulin; E83.39 Other disorders of phosphorus metabolism; D63.1 Anemia in chronic kidney disease
CPT/HCPCS: 36415; 71045; 80048; 80053; 81001; 82040; 82607; 82746; 82948; 83735; 84100; 84443; 85025; 87040; 87086; 87186; 99284; J0610; J1817; J2185; J2270; J2405; J2765; J7050

== ENCOUNTER 2019-12-19 22:53 | Inpatient (IN) | payer BC ==
[~2019-12-19] VITALS: Ht 180.3 cm; Wt 105.2 kg
[~2019-12-19 22:53] MED LIST changes: +CALCITRIOL0.5 MCG PO; +NOVOLOG100 UNIT/1 SC; +OS-CAL 500+D T1 EACH PO; +ZOFRAN4 MG PO
--- NOTE | 2019-12-19 23:00 | Emergency Department Note ---
History of Present Illnes History of Present Illness Chief Complaint: Abdominal Complaints History of Present Illness This is a 39 year old male recently discharged from the hospital returns to the ED for one day h/o of L flank pain with weakness . Historian: Patient Arrival Mode: Car Onset (how long ago): hour(s) Location: L flank Radiation: Reports flank (Left) Severity: moderate Timing of current episode: constant Progression: worsening Chronicity: new Context: Reports recent illness Relieving factors: immobilization, rest Exacerbating factors: movement Associated symptoms: Reports weakness Previous service: medications given, tests performed, observation, one or more referrals, re-evaluation Past Medical/Family History Physician Review I have reviewed the patient's past medical and family history. Any updates have been documented here. Past Medical History Recent Fever: No Clinical Suspicion of Infectio: No New/Unexplained Change in Ment: No Past Medical History: Hypertension, Diabetes, ESRD, Anemia Other Medical History: FOOT DROP osteomyelitis Past Surgical History: Cholecysctectomy, Knee Replacement Other Surgery: RT LOWER LEG SURGERY AT AGE 4 Stent to Prostate RIGHT LEG SURGERY S/P WORK INJURY SUPRA PUBIC CATH CIRCUMCISION PERITONEAL DIALYSIS ACCESS RT NEPHRECTOMY Social History Smoking Cessation: Never Smoker Alcohol Use: None Any Illegal Drug Use: No Other Last Tetanus: UTD Review of Systems Review of Systems Constitutional: Reports weakness EENTM: Reports no symptoms Cardiovascular: Reports no symptoms Respiratory: Reports no symptoms Gastrointestinal: Reports no symptoms Genitourinary: Reports pain Musculoskeletal: Reports no symptoms Integumentary: Reports no symptoms Neurological: Reports no symptoms Psychological: Reports no symptoms Endocrine: Reports no symptoms Hematological/Lymphatic: Reports no symptoms Physical Exam Related Data Allergies: Coded Allergies: Iodinated Contrast Media (Verified Allergy, Unknown, 05/03/18) Uncoded Allergies: PO CONTRAST (Allergy, Mild, 07/06/07) Physical Exam CONSTITUTIONAL Constitutional: Present ill appearing HENT HENT: Present normocephalic, Present atraumatic, Present oropharynx clear/moist, Present nose normal HENT L/R: Present left ext ear normal, Present right ext ear normal EYES Eyes: Reports PERRL, Reports conjunctivae normal NECK Neck: Present ROM normal PULMONARY Pulmonary: Present effort normal, Present breath sounds normal CARDIOVASCULAR Cardiovascular: Present regular rhythm, Present heart sounds normal, Present capillary refill normal, Present normal rate GASTROINTESTINAL Abdominal: Present left CVA tenderness GENITOURINARY Genitourinary: Present exam deferred SKIN Skin: Present warm, Present dry MUSCULOSKELETAL Musculoskeletal: Present ROM normal NEUROLOGICAL Neurological: Present alert, Present oriented x 3, Present no gross motor or sensory deficits PSYCHOLOGICAL Psychological: Present mood/affect normal, Present judgement normal Results Laboratory Lab results reviewed: Yes Laboratory comments Laboratory Tests Test 12/19/19 23:55 12/19/19 23:05 White Blood Count 6.57 x10e3/uL (4.8-10.8) Red Blood Count 5.38 x10e6/uL (4.3-5.7) Hemoglobin 13.0 g/dL (14.0-18.0) Hematocrit 43.1 % (38.2-49.6) Mean Corpuscular Volume 80.1 fL (81-99) Mean Corpuscular Hemoglobin 24.2 pg (28-32) Mean Corpuscular Hemoglobin Concent 30.2 g/dL (31-35) Red Cell Distribution Width 16.9 % (11.7-14.4) Platelet Count 115 x10e3/uL (140-360) Neutrophils (%) (Auto) 76.5 % (38.7-80.0) Lymphocytes (%) (Auto) 16.4 % (18.0-39.1) Monocytes (%) (Auto) 4.3 % (4.4-11.3) Eosinophils (%) (Auto) 1.7 % (0.0-6.0) Basophils (%) (Auto) 0.5 % (0.0-1.0) Neutrophils # (Auto) 5.0 (2.1-6.9) Lymphocytes # (Auto) 1.1 (1.0-3.2) Monocytes # (Auto) 0.3 (0.2-0.8) Eosinophils # (Auto) 0.1 (0.0-0.4) Basophils # (Auto) 0.0 (0.0-0.1) Absolute Immature Granulocyte (auto 0.04 x10e3/uL (0-0.1) Sodium Level 135 mmol/L (136-145) Potassium Level 6.3 mmol/L (3.5-5.1) Chloride Level 104 mmol/L (98-107) Carbon Dioxide Level 20 mmol/L (22-29) Anion Gap 17.3 mmol/L (8-16) Blood Urea Nitrogen 51 mg/dL (7-26) Creatinine 7.67 mg/dL (0.72-1.25) Estimat Glomerular Filtration Rate 8 ML/MIN (60-) BUN/Creatinine Ratio 7 (6-25) Glucose Level 135 mg/dL (74-118) Calcium Level 6.8 mg/dL (8.4-10.2) Total Bilirubin 0.3 mg/dL (0.2-1.2) Aspartate Amino Transf (AST/SGOT) 25 IU/L (5-34) Alanine Aminotransferase (ALT/SGPT) 45 IU/L (0-55) Alkaline Phosphatase 535 IU/L (40-150) Creatine Kinase 250 IU/L (30-200) Creatine Kinase MB ng/mL (0-5.0) Troponin I 0.003 ng/mL (0-0.300) Total Protein 8.8 g/dL (6.5-8.1) Albumin 2.7 g/dL (3.5-5.0) Globulin 6.1 g/dL (2.3-3.5) Albumin/Globulin Ratio 0.4 (0.8-2.0) Imaging Imaging results reviewed: Yes Impressions [place] [address] Patient Name: MANJIT LUO MR #: [id number] : 1980 Age/Sex: 39/M Req #: [id number] Adm Physician: ABHIJIT LLOYD MD Ordered by: YUN LLOYD DO Report #: [id number] Location: [facility] Room/Bed: [facility] Procedure: [id number] CT/CT ABDOMEN/PELVIS WO Exam Date: 12/19/19 Exam Time: 2340 REPORT STATUS: Signed EXAM: CT Abdomen and Pelvis WITHOUT contrast INDICATION: ^L flank pain ^[id number] ^2340 COMPARISON: None. TECHNIQUE: Abdomen and pelvis were scanned utilizing a multidetector helical scanner from the lung base to the pubic symphysis without administration of IV contrast. Absence of intravenous contrast decreases sensitivity for detection of focal lesions and vascular pathology. Coronal and sagittal reformations were obtained. Routine protocol was performed. IV CONTRAST: None ORAL CONTRAST: None COMPLICATIONS: None FINDINGS: LINES and TUBES: None. LOWER THORAX: New moderate right pleural effusion. HEPATOBILIARY: No focal hepatic lesions. No biliary ductal dilation. GALLBLADDER: There are cholecystectomy clips. SPLEEN: No splenomegaly. PANCREAS: Stable duct dilatation. Scattered calcifications suggest chronic pancreatitis. ADRENALS: No adrenal nodules KIDNEYS/URETERS: Right nephrectomy. No left hydronephrosis. GI TRACT: No abnormal distention, wall thickening, or evidence of bowel obstruction. Appendix is normal. PELVIC ORGANS/BLADDER: Suprapubic urinary bladder catheter. Mild stranding of the fat surrounding the urinary bladder. LYMPH NODES: Unchanged mildly enlarged iliac chain and inguinal lymph nodes. VESSELS: Unremarkable. PERITONEUM / RETROPERITONEUM: Dialysis catheter coiled in the dependent right hemiabdomen pelvis. Small volume free fluid. Trace intraperitoneal free air under the left hemidiaphragm. BONES: Findings of renal osteodystrophy. Bilateral pars defects at L5. IMPRESSION: Lack of IV contrast limits evaluation of the solid organs and vasculature. 1. Trace intraperitoneal free air under the left hemidiaphragm. Given lack of additional evidence of intra-abdominal pathology, this may be due to recent instrumentation such as catheter placement, adjustment, or use. 2. Mild fat stranding about the decompressed urinary bladder with wall thickening. Correlate with urinalysis. 3. New moderate right pleural effusion. Small volume peritoneal ascites. Signed by: Abhijit Cadena MD on 12/20/2019 1:01 AM Dictated By: ABHIJIT CADENA MD 0 Transcribed By: TIFFANY on 12/20/19100 COPY TO: YUN LLOYD DO~ Assessment & Plan Medical Decision Making MDM Diff Dx : UTI, Sepsis, SBP Assessment & Plan Final Impression: (1) Hyperkalemia (2) UTI (urinary tract infection) (3) ESRD (end stage renal disease) on dialysis (4) Hypocalcemia Depart Disposition: ADMITTED Home Meds Reported Medications Ciprofloxacin Hcl (CIPRO) 500 Mg Tablet, 250 MG PO Q12H, #30 TAB 12/16/19 Ondansetron Hcl* (ZOFRAN*) 4 Mg Tablet, 4 MG PO PRN PRN for NAUSEA AND VOMITING 12/16/19 Calcium Carbonate/Vitamin D3 (OS-JOELLE 500+D TABLET) 1 Each Tablet, 1 TAB PO BID, TAB 12/16/19 Insulin Aspart (NOVOLOG) 100 Unit/1 Ml Cartridge, 5 UNITS SC TIDWM, UNITS 12/12/19 Calcitriol (CALCITRIOL) 0.5 Mcg Cap, 0.5 MG PO BID, CAP 12/12/19 Amoxicillin (AMOXICILLIN) 250 Mg Capsule, 500 MG PO TID, #30 CAP 08/10/19 Fluconazole (DIFLUCAN) 100 Mg Tablet, 100 MG PO DAILY, #14 0 Refills 08/10/19 Insulin Glargine (LANTUS 3ML PEN) 100 Units/1 Ml Inj, UNITS SC TIDWM 08/05/19 Magnesium Oxide (MAG-OXIDE) 400 Mg Tablet, 400 MG PO TID 08/05/19 Nifedipine (NIFEDIPINE ER) 30 Mg Tablet.er, 30 MG PO BID 08/05/19 Sodium Bicarbonate (SODIUM BICARBONATE) 650 Mg Tablet, 1300 MG PO TID 08/05/19 YUN LLOYD DO Dec 19, 2019 23:00
[2019-12-19 23:11] LABS: BASOPHILS % 0.5 % (0.0-1.0); EOSINOPHILS # (AUTO) 0.1 (0.0-0.4); EOSINOPHILS % 1.7 % (0.0-6.0); HEMATOCRIT 43.1 % (38.2-49.6); LYMPHOCYTES # (AUTO) 1.1 (1.0-3.2); LYMPHOCYTES % 16.4 % (18.0-39.1); MEAN CORPUSCULAR HEMOGLOBIN 24.2 pg (28-32); MEAN CORPUSCULAR HGB CONC 30.2 g/dL (31-35); MEAN CORPUSCULAR VOLUME 80.1 fL (81-99); MONOCYTES # (AUTO) 0.3 (0.2-0.8); MONOCYTES % 4.3 % (4.4-11.3); NEUTROPHILS % 76.5 % (38.7-80.0); PLATELET COUNT 115 x10e3/uL (140-360); RED BLOOD COUNT 5.38 x10e6/uL (4.3-5.7); RED CELL DISTRIBUTION WIDTH 16.9 % (11.7-14.4)
[2019-12-19 23:30] LABS: ALBUMIN 2.7 g/dL (3.5-5.0); ALBUMIN/GLOBULIN RATIO 0.4 (0.8-2.0); ANION GAP 17.3 mmol/L (8-16); CREATININE, SERUM 7.67 mg/dL (0.72-1.25)
[2019-12-19] MEDS ORDERED: LEVOFLOXACIN 750MG/D5W 150ML 150 ML IV SCH (23:30)
[2019-12-19 23:36] LABS: POTASSIUM 6.3 mmol/L (3.5-5.1)
[2019-12-19 23:37] LABS: CALCIUM 6.8 mg/dL (8.4-10.2)
[2019-12-19] MEDS ORDERED: ASPIRIN 81 MG CHEW TAB PO ONE (23:45)
[2019-12-19] MEDS ORDERED: INSULIN REGULAR, HUMAN 100 UNIT/1 ML 3ML VIAL IV STA (23:49)
[2019-12-19] MEDS ORDERED: CALCIUM GLUCONATE 10% INJ 0.465 MEQ/ML VIAL IV STA (23:49)
[2019-12-19] MEDS ORDERED: DEXTROSE 50% SYRINGE 50 ML IV STA (23:49)
[2019-12-19] MEDS ORDERED: SOD POLYSTYRENE SULFONATE SUSP 15 GM/60 ML BTL PO STA (23:49)
[2019-12-19] MEDS ORDERED: SODIUM BICARBONATE 8.4% INJ 50 ML SYR IV STA (23:49)
[2019-12-20] VITALS (9 sets, daily range): BP systolic 126–201; BP diastolic 87–106
[2019-12-20 00:01] LABS: CREATINE KINASE 250 IU/L (30-200)
[2019-12-20] MEDS ORDERED: LEVOFLOXACIN 750MG/D5W 150ML 150 ML IV ONE (00:02)
[2019-12-20] MEDS: ONDANSETRON HCL INJ 2MG/ML 2ML 2 MG/ML VIAL IV PRN ×5 (00:03→21:24)
[2019-12-20] MEDS ORDERED: SODIUM CHLORIDE 0.9% 100 ML ONE (00:42)
[2019-12-20] MEDS: MORPHINE SULFATE INJ 4 MG/ML INJ 1ML IV PRN ×5 (01:00→21:24)
--- NOTE | 2019-12-20 01:04 | Diagnostic Imaging Report ---
EXAM: CT Abdomen and Pelvis WITHOUT contrast INDICATION: ^L flank pain ^[id number] ^[id number] COMPARISON: None. TECHNIQUE: Abdomen and pelvis were scanned utilizing a multidetector helical scanner from the lung base to the pubic symphysis without administration of IV contrast. Absence of intravenous contrast decreases sensitivity for detection of focal lesions and vascular pathology. Coronal and sagittal reformations were obtained. Routine protocol was performed. IV CONTRAST: None ORAL CONTRAST: None COMPLICATIONS: None FINDINGS: LINES and TUBES: None. LOWER THORAX: New moderate right pleural effusion. HEPATOBILIARY: No focal hepatic lesions. No biliary ductal dilation. GALLBLADDER: There are cholecystectomy clips. SPLEEN: No splenomegaly. PANCREAS: Stable duct dilatation. Scattered calcifications suggest chronic pancreatitis. ADRENALS: No adrenal nodules KIDNEYS/URETERS: Right nephrectomy. No left hydronephrosis. GI TRACT: No abnormal distention, wall thickening, or evidence of bowel obstruction. Appendix is normal. PELVIC ORGANS/BLADDER: Suprapubic urinary bladder catheter. Mild stranding of the fat surrounding the urinary bladder. LYMPH NODES: Unchanged mildly enlarged iliac chain and inguinal lymph nodes. VESSELS: Unremarkable. PERITONEUM / RETROPERITONEUM: Dialysis catheter coiled in the dependent right hemiabdomen pelvis. Small volume free fluid. Trace intraperitoneal free air under the left hemidiaphragm. BONES: Findings of renal osteodystrophy. Bilateral pars defects at L5. IMPRESSION: Lack of IV contrast limits evaluation of the solid organs and vasculature. 1. Trace intraperitoneal free air under the left hemidiaphragm. Given lack of additional evidence of intra-abdominal pathology, this may be due to recent instrumentation such as catheter placement, adjustment, or use. 2. Mild fat stranding about the decompressed urinary bladder with wall thickening. Correlate with urinalysis. 3. New moderate right pleural effusion. Small volume peritoneal ascites. Signed by: Donald Galarza MD on 12/20/2019 1:01 AM
[2019-12-20 03:03] LABS: BILIRUBIN,URINE NEGATIVE (NEGATIVE); CLARITY,URINE CLEAR (CLEAR); COLOR,URINE YELLOW (YELLOW); KETONES,URINE NEGATIVE (NEGATIVE); LEUKOCYTE ESTERASE ,URINE NEGATIVE (NEGATIVE); NITRITE,URINE NEGATIVE (NEGATIVE); PROTEIN,URINE DIPSTICK >=300 (NEGATIVE); URINE UROBILINOGEN 0.2 mg/dL (0.2 - 1)
[2019-12-20 03:10] LABS: BACTERIA,URINE FEW /HPF; EPITHELIAL CELLS,URINE RARE /LPF; RBC,URINE 21-50 /HPF (0-5)
[2019-12-20 05:19] LABS: BASOPHILS % 0.5 % (0.0-1.0); EOSINOPHILS # (AUTO) 0.1 (0.0-0.4); EOSINOPHILS % 1.2 % (0.0-6.0); HEMATOCRIT 38.6 % (38.2-49.6); HEMOGLOBIN 11.6 g/dL (14.0-18.0); MEAN CORPUSCULAR HEMOGLOBIN 24.3 pg (28-32); MEAN CORPUSCULAR HGB CONC 30.1 g/dL (31-35); MEAN CORPUSCULAR VOLUME 80.9 fL (81-99); MONOCYTES # (AUTO) 0.2 (0.2-0.8); MONOCYTES % 4.8 % (4.4-11.3); NEUTROPHILS # (AUTO) 2.9 (2.1-6.9); NEUTROPHILS % 68.8 % (38.7-80.0); PLATELET COUNT 100 x10e3/uL (140-360); RED BLOOD COUNT 4.77 x10e6/uL (4.3-5.7); RED CELL DISTRIBUTION WIDTH 16.1 % (11.7-14.4)
[2019-12-20] MEDS ORDERED: GABAPENTIN300 MG PO (05:26)
[2019-12-20 05:50] LABS: ALBUMIN 2.3 g/dL (3.5-5.0); ALBUMIN/GLOBULIN RATIO 0.4 (0.8-2.0); ANION GAP 15.9 mmol/L (8-16); CREATININE, SERUM 7.49 mg/dL (0.72-1.25)
[2019-12-20 05:53] LABS: CALCIUM 6.5 mg/dL (8.4-10.2); POTASSIUM 5.9 mmol/L (3.5-5.1)
--- NOTE | 2019-12-20 07:00 | NUR ---
RECEIVED PATIENT RESTING IN BED NO S/S OF DISTRESS. BED LOW, WHEELS LOCKED, SIDE RAILS X2. CALL LIGHT IN REACH WILL CONTINUE TO MONITOR PATIENT.
[2019-12-20] MEDS ORDERED: LEVOFLOXACIN 750MG/D5W 150ML 150 ML IV SCH (09:00)
--- NOTE | 2019-12-20 09:05 | NUR ---
Pt. expressed no spiritual or emotional concerns at this time. Patrol Supervisor provided hospitality and information on how to reach brim and crown presser, if needed. No need to follow. MIHAELA RENEE Patrol Supervisor Spiritual Care Department O: [phone]
[2019-12-20] MEDS ORDERED: DEXTROSE 50% SYRINGE 50 ML IV PRN (10:45)
[2019-12-20] MEDS ORDERED: NON-FORMULARY MEDICATION (Ondansetron Hcl* (Zofran*) 4 MG) PO PRN (10:45)
[2019-12-20] MEDS ORDERED: MEROPENEM 500MG 500 MG in SODIUM CHLORIDE 0.9% 50ML 50 ML IV SCH (10:45)
[2019-12-20] MEDS: INSULIN LISPRO 100 UNIT/1 ML 3ML VIAL SQ SCH ×5 (11:30→21:00)
[2019-12-20] MEDS ORDERED: SODIUM CHLORIDE 0.9% 250ML 250 ML ONE (11:37)
[2019-12-20] MEDS: MEROPENEM 500MG/ NS 50ML 50 ML IV SCH ×2 (11:38→21:35)
[2019-12-20] MEDS: METOCLOPRAMIDE HCL 10 MG/2ML VIAL IV SCH ×2 (11:38→17:55)
[2019-12-20] MEDS: NIFEDIPINE CR 30 MG TAB PO SCH ×2 (11:38→17:55)
--- NOTE | 2019-12-20 12:43 | NUR ---
Attempted to do DPA on pt. Pt refused, stating that he doesn't feel well. Asked CM to come back another time.
[2019-12-20] MEDS: GABAPENTIN 300 MG CAP PO SCH ×2 (14:35→21:35)
[2019-12-20] MEDS: SODIUM BICARBONATE 650 MG TAB PO SCH ×2 (14:35→21:35)
[2019-12-20] MEDS: MAGNESIUM OXIDE 400 MG TAB PO SCH ×2 (14:35→21:35)
[2019-12-20] MEDS: CALCIUM CARBONATE 500 MG CHEWABLE TABS PO SCH ×2 (14:35→21:35)
--- NOTE | 2019-12-20 15:08 | History and Physical ---
PRIMARY CARE PHYSICIAN: Dr. Donald Potts. RELASTER: Dr. Lew Karimi. The patient was seen in emergency room. CHIEF COMPLAINT: Recurrent urinary tract infection with severe hyperkalemia of 6.3. Persistent low calcium level of 6.8. HISTORY OF PRESENT ILLNESS: The patient is a 39-year-old male, recently discharged home from the hospital. The patient was discharged on December 15. At that time, the patient with complicated urinary tract infection. He also has complicated infection and also low calcium level, dehydration with peritoneal dialysis and abdominal pain. The patient was treated. He did better. He had history of right nephrectomy, secondary nonfunctional right kidney and also a suprapubic catheter in place that was recently exchanged. The patient may need ileal conduit for future kidney transplant since the patient had recurrent bladder infection and at this time, the patient is stable. When he was discharged home, he was doing well. However, at home, he was having nausea and vomiting, now came back in the hospital with potassium that was elevated. The patient also complained of left flank pain associated with weakness as well. The patient's lab work shown potassium of 6.3, BUN and creatinine of 51 and 7.7. The patient's calcium level was 6.3. The patient is admitted. His urine WBC of 10. He had 1+ glucose. Serologies for COVID-19 is pending. The patient also had some low-grade fever at home, but he is afebrile. PAST MEDICAL HISTORY: As mentioned previously. 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 He had a right nephrectomy secondary to obstruction, nonfunctional kidney. He had end-stage renal disease. He is on peritoneal dialysis. He had extensive right lower extremity femur and knee surgery due to work-related injury previously. The patient also has diabetic neuropathy. 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 History of cholecystectomy, suprapubic catheter and again right nephrectomy. Recurrent urinary tract infection. Hypocalcemia. Hyperkalemia. Electrolyte disorder corrected. Recurrent nausea and vomiting from gastroparesis. SOCIAL HISTORY: The patient still work. 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 He does not smoke or use alcohol. No regular drug use. He lives with his spouse and family. ALLERGIES: TO IODINE CONTRAST. HOME MEDICATIONS: List is reviewed. The patient is on calcitriol, calcium carbonate, gabapentin, insulin, magnesium oxide, nifedipine, Zofran, and sodium bicarbonate. PHYSICAL EXAMINATION: VITAL SIGNS: Temperature is 98, blood pressure 142/100, pulse rate is 90, and respirations 16. GENERAL: The patient is fatigued and nausea, but not in any distress. HEENT: Normocephalic and atraumatic. He is anicteric. NECK: Supple grossly. PULMONARY: Clear. CARDIOVASCULAR: Regular rate and rhythm. ABDOMEN: Soft. Suprapubic catheter, right nephrectomy. EXTREMITIES: No cyanosis or edema. NEUROLOGIC: No focal deficit other than diabetic neuropathy with muscular degeneration due to neuropathy and diabetes. LABORATORY DATA: Chemistry; sodium is 135, potassium 6.3, chloride 104, bicarb 20, BUN is 51, creatinine 7.6, glucose is 138, and calcium is 6.8. AST 25, ALT is 45, and alkaline phosphate is 535. Hematology; WBC 6.5, hemoglobin 13, hematocrit 43, and platelet is 115. Urinalysis; wbc of 10. Abdominal and pelvic CT scan that was done in the emergency room without contrast interpret new free air under the left diaphragm. There is new moderate right pleural effusion. Small volume peritoneal ascites. Mild fat straining about the decompression urinary bladder with wall thickening. ASSESSMENT AND PLAN: 1. Abdominal pain, most likely multifactorial. 2. Right pleural effusion, increasing, most likely secondary to peritoneal dialysis. 3. End-stage renal disease, on peritoneal dialysis. 4. Persistent recurrent complicated urinary tract infection, had a suprapubic catheter. 5. Electrolyte disorder with high potassium. 6. Intractable nausea and vomiting, and increase in fatigueness. This is combination of diabetes type 1, complication of gastroparesis. PLAN: Continue with antibiotic with meropenem twice a day. Continue with home medication with some adjustment. Peritoneal dialysis. Treat the potassium elevation. We will monitor the patient closely We will consult Dr. Castro Jalloh. The patient may need ileal conduit or diversion of the urine urinary bladder urine for preparation of his renal transplant in the near future. MD SADA Haywood/MODL /[id number]
--- NOTE | 2019-12-20 15:08 | Consultation ---
DATE OF CONSULTATION: Initial Nephrology Consultation Report REASON FOR CONSULTATION: HISTORY OF PRESENT ILLNESS: Mr. Sukh Loazno is a 39-year-old male, who is well known to me. The patient does appear renal dialysis patient. He was actually discharged from the hospital a few days ago. At that time, he was being treated for complicated UTI. The patient presents to the hospital this time with nausea and vomiting. The patient's potassium is 5.9. Even during the last hospitalization, he had borderline hyperkalemia around 5.4 to 5.5 and he has always been hypocalcemic. The patient has nausea and vomiting. PHYSICAL EXAMINATION: GENERAL: The patient is having nausea. He is retching right now. HEENT: No increased JVD. CARDIOVASCULAR: Regular rate and rhythm. LUNGS: Decreased breath sounds at bases bilaterally. ABDOMEN: Decreased bowel sounds. The patient has a Tenckhoff catheter in place. EXTREMITIES: No edema, cyanosis, or clubbing. LABORATORY RESULTS: White count 4, hemoglobin and hematocrit 11 and 38, platelet count 100. Sodium 139, potassium 5.9, chloride 108, bicarb 21, BUN and creatinine 51 and 7.5 respectively, calcium 6.5, albumin 2.3. Urinalysis shows greater than 300 protein, nitrite is negative, leukocyte esterase is negative, and 20 to 50 red cells, 6 to 10 white cells, few bacteria. IMPRESSION: 1. Chronic kidney disease stage 5. 2. Hyperkalemia. 3. Hypocalcemia. 4. Nausea, vomiting. PLAN: The patient has hyperkalemia today. He was not actually undergoing peritoneal dialysis last night because he was in the emergency room here. The patient was on Lokelma before he started dialysis 6 to 7 months ago, but since he started dialysis that medicine has been discontinued. He received a cocktail for hyperkalemia, namely Kayexalate, insulin, and D50, but if he remains hyperkalemic, he may need to be put on Veltassa 2 to 4 times a week. He is hypocalcemic. I am going to restart the Tums tablets 1500 mg 3 times a day, which I had him on last time he was here in the hospital. He is also on calcitriol twice a day that should help his calcium. He is going to get peritoneal dialysis tonight. The PD nurse will be called in. We may sample the PD fluid just to make sure that there is no cells in there to make sure the nausea and vomiting is not coming from PD peritonitis. I really doubt that it is. He has no fever, no white count. If he continues to have this nausea and vomiting, perhaps GI consultation may be an order. Thank you Dr. Potts, for allowing me to participate in the care of this patient with you. Ather MD LAMAR Delacruz/NOREEN /[id number]
--- NOTE | 2019-12-20 15:20 | NUR ---
Call placed to [facility] for PD.
[2019-12-20 15:33] LABS: CREATINE KINASE MB 5.1 ng/mL (0-4.3)
--- NOTE | 2019-12-20 16:57 | NUR ---
Paged Dr. Delacruz with potassium result 5.7
[2019-12-20] MEDS ORDERED: NIFEDIPINE 30 MG PO SCH (17:00)
[2019-12-20] MEDS ORDERED: CALCITRIOL 0.5 MCG CAP PO SCH (17:00)
[2019-12-20] MEDS ORDERED: NIFEDIPINE CR 30 MG TAB PO SCH (17:00)
[2019-12-20] MEDS: CALCITRIOL 0.25 MCG CAP PO SCH (17:55)
--- NOTE | 2019-12-20 18:13 | NUR ---
Spoke with Dr. Delacruz. New order for 15 gram Kayexylate daily. One dose now. New orders implemented.
[2019-12-20] MEDS ORDERED: SOD POLYSTYRENE SULFONATE SUSP 15 GM/60 ML BTL PO NR (18:15)
--- NOTE | 2019-12-20 19:15 | NUR ---
Patient visited in room during nursing rounds. Patient alert and oriented x3. Pt is on bedrest at this time. Pt on peritoneal dialysis at this time and has suprapubic catheter draining clear yellow urine. Pt has frequent pain on lower back and nausea and will be medicated accordingly. Call north within reach.
[2019-12-21] VITALS (10 sets, daily range): BP systolic 119–137; BP diastolic 82–90
[2019-12-21] MEDS: MORPHINE SULFATE INJ 4 MG/ML INJ 1ML IV PRN ×5 (01:35→19:32)
[2019-12-21] MEDS: ONDANSETRON HCL INJ 2MG/ML 2ML 2 MG/ML VIAL IV PRN ×5 (01:35→19:32)
[2019-12-21 06:41] LABS: ANION GAP 15.6 mmol/L (8-16); CREATININE, SERUM 7.23 mg/dL (0.72-1.25); POTASSIUM 4.6 mmol/L (3.5-5.1)
[2019-12-21 06:44] LABS: CALCIUM 6.3 mg/dL (8.4-10.2)
[2019-12-21] MEDS: INSULIN LISPRO 100 UNIT/1 ML 3ML VIAL SQ SCH ×7 (07:30→21:08)
[2019-12-21] MEDS: SOD POLYSTYRENE SULFONATE SUSP 15 GM/60 ML BTL PO SCH (08:50)
[2019-12-21] MEDS: METOCLOPRAMIDE HCL 10 MG/2ML VIAL IV SCH ×3 (08:51→15:51)
[2019-12-21] MEDS: GABAPENTIN 300 MG CAP PO SCH ×3 (08:52→21:06)
[2019-12-21] MEDS: NIFEDIPINE CR 30 MG TAB PO SCH ×2 (08:52→18:26)
[2019-12-21] MEDS: MEROPENEM 500MG/ NS 50ML 50 ML IV SCH ×2 (08:52→21:06)
[2019-12-21] MEDS: MAGNESIUM OXIDE 400 MG TAB PO SCH ×3 (08:52→21:06)
[2019-12-21] MEDS: SODIUM BICARBONATE 650 MG TAB PO SCH ×3 (08:54→21:06)
[2019-12-21] MEDS: CALCITRIOL 0.25 MCG CAP PO SCH ×2 (08:54→18:26)
[2019-12-21] MEDS: CALCIUM CARBONATE 500 MG CHEWABLE TABS PO SCH ×3 (08:55→21:06)
[2019-12-21 12:46] LABS: BODY FLUID APPEARANCE CLEAR; BODY FLUID COLOR STRAW; BODY FLUID TYPE PERITONEAL; RBC,BODY FLUID 24 cells/uL; WBC,BODY FLUID 21 cells/uL
[2019-12-21 13:13] LABS: EOSINOPHILS,BODY FLUID 2 %; LYMPHOCYTES,BODY FLUID 16 %; MONO/MACROPHG,BODY FLUID 53 %; NEUTROPHILS,BODY FLUID 29 %
--- NOTE | 2019-12-21 14:43 | Progress Note ---
DATE: 12/21/2019 Renal Progress Note SUBJECTIVE: Events over the past 24 hours have been noted. The patient actually feels a lot better today. He is not really having nausea or vomiting. We did peritoneal dialysis on him last night and actually we ended up giving him about 400 mL. We did not remove any fluid. PHYSICAL EXAMINATION: VITAL SIGNS: Blood pressure 137/90, pulse 74, and respiration 18. GENERAL: The patient is in no acute distress. HEENT: No increased JVD. CARDIOVASCULAR: Regular rate and rhythm. LUNGS: Decreased breath sounds at bases bilaterally. ABDOMEN: Positive bowel sounds. The patient has a Tenckhoff dialysis catheter. EXTREMITIES: No edema, cyanosis, or clubbing. LABORATORY RESULTS: He had a PD fluid cell count that was done. His total cell count was 100. White blood cells 21 cells, out of those neutrophils of 29%. Sodium 139, potassium 4.6, chloride 103, bicarbonate 25, BUN and creatinine 48 and 7.2 respectively, calcium is 6.3, and ionized calcium is 0.9. IMPRESSION/PLAN: 1. Chronic kidney disease, stage 5. 2. Hypocalcemia. 3. Hyperkalemia, resolved. PLAN: I tried ordering some Veltassa and Lokelma for the patient yesterday, however, it is not on formulary here. I adjusted the patient's peritoneal dialysis prescription. I increased the number of exchanges from 5 exchanges to 6 exchanges and also I decreased the dwell time from 90 minutes to 60 minutes. With these modifications, the patient's serum potassium came down. He actually says he feels a lot better, so I am going to go ahead and keep him with this prescription. Last night, I used only 1.5% dextrose because I did not want to pull a lot of fluids since he was having nausea and vomiting, but today he is not having nausea or vomiting and he feels a little heavy, so I am going to alternate 1.5% with a higher 2.5% dextrose concentration. I will replace his calcium. When the patient leaves the hospital, as an outpatient he can probably take Veltassa 8.4 g on Thursday, Thursday, and Fridays. Ather MD LAMAR Delacruz/NOREEN /[id number]
[2019-12-21] MEDS ORDERED: CALCIUM GLUCONATE 10% INJ 4.65 MEQ in SODIUM CHLORIDE 0.9% 50ML 50 ML IV ONE (15:30)
[2019-12-22] VITALS (8 sets, daily range): BP systolic 120–151; BP diastolic 78–95
[2019-12-22] MEDS: ONDANSETRON HCL INJ 2MG/ML 2ML 2 MG/ML VIAL IV PRN ×5 (00:04→21:25)
[2019-12-22] MEDS: MORPHINE SULFATE INJ 4 MG/ML INJ 1ML IV PRN ×6 (00:04→21:25)
--- NOTE | 2019-12-22 04:04 | NUR ---
RECEIVED BEDSIDE SHIFT REPORT. PATIENT IS RESTING IN BED, AAOX3. RESP EVEN AND UNLABORED. NO ACUTE DISTRESS NOTED AT THIS TIME. EDUCATION PATIENT ABOUT SAFE PRECAUTION. PATIENT VERBALS UNDERSTANDING. SUPRA PUBIC CATHETER IN PLACE. TELE IN PLACE. BED IS LOCKED AND AT LOWEST POSITION. CALL LIGHT WITHIN REACH. PT DENIES NEEDS AT THIS TIME
[2019-12-22 07:13] LABS: CREATININE, SERUM 6.4 mg/dL (0.72-1.25)
[2019-12-22 07:17] LABS: CALCIUM 6.7 mg/dL (8.4-10.2)
[2019-12-22] MEDS: INSULIN LISPRO 100 UNIT/1 ML 3ML VIAL SQ SCH ×7 (07:30→21:00)
[2019-12-22] MEDS: SOD POLYSTYRENE SULFONATE SUSP 15 GM/60 ML BTL PO SCH (09:00)
[2019-12-22] MEDS: MEROPENEM 500MG/ NS 50ML 50 ML IV SCH ×2 (09:31→21:25)
[2019-12-22] MEDS: MAGNESIUM OXIDE 400 MG TAB PO SCH ×3 (09:37→20:24)
[2019-12-22] MEDS: GABAPENTIN 300 MG CAP PO SCH ×3 (09:37→20:24)
[2019-12-22] MEDS: NIFEDIPINE CR 30 MG TAB PO SCH ×2 (09:38→16:53)
[2019-12-22] MEDS: CALCIUM CARBONATE 500 MG CHEWABLE TABS PO SCH ×3 (09:39→20:24)
[2019-12-22] MEDS: SODIUM BICARBONATE 650 MG TAB PO SCH ×3 (09:39→20:24)
[2019-12-22] MEDS: CALCITRIOL 0.25 MCG CAP PO SCH ×2 (09:39→16:47)
[2019-12-22] MEDS: METOCLOPRAMIDE HCL 10 MG/2ML VIAL IV SCH ×3 (09:41→16:47)
--- NOTE | 2019-12-22 13:24 | Progress Note ---
DATE: 12/22/2019 Renal Progress Note SUBJECTIVE: Events have been noted. There is no complaint. No chest pain. No shortness of breath. PHYSICAL EXAMINATION: VITAL SIGNS: Blood pressure 120/78, pulse 80, and respiration 19. GENERAL: The patient is in no acute distress. HEENT: No increased JVD. CARDIOVASCULAR: Regular rate and rhythm. LUNGS: Decreased breath sounds at bases bilaterally. ABDOMEN: Positive bowel sounds. The patient has a Tenckhoff PD catheter. EXTREMITIES: No edema, cyanosis, or clubbing. LABORATORY RESULTS: Sodium 138, potassium 5, chloride 103, bicarbonate 27, BUN and creatinine 42 and 6.4, and calcium 6.7. IMPRESSION/PLAN: 1. Chronic kidney disease, stage 5. 2. Hypocalcemia. 3. Borderline hyperkalemia. PLAN: The patient's serum potassium is 5. I am encouraging to except the Kayexalate daily while here in the hospital. Once he leaves the hospital, he can call the office and we can give him a prescription for either Veltassa or Lokelma to take on a daily basis. 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 I told him that once he leaves the office, we can set him up with another transplant center for a second opinion, which is what he wanted. The patient's calcium is low, but is coming up. Continue calcitriol and Rocaltrol. We removed 455 mL this morning. I will continue the same PD prescription, 6 exchanges, 1 hour dwell time and we will use 1.5% dextrose alternate with 2.5% dextrose. Ather MD LAMAR Delacruz/NOREEN /[id number]
--- NOTE | 2019-12-22 19:29 | NUR ---
report given to oncoming nurse, walking rounds complete.
--- NOTE | 2019-12-22 19:30 | NUR ---
Patient received lying in bed. AAO x 3. Patient had no complaints of pain. Respirations even and non-labored. Patient undergoing Peritoneal Dialysis. Safety measures implemented. Patient instructed to call for assistance when needed. Call light within reach.
[2019-12-22] MEDS: ONDANSETRON HCL 4 MG ORAL DISINTEGRATING TAB PO PRN (21:25)
[2019-12-23] VITALS (7 sets, daily range): BP systolic 112–158; BP diastolic 90–100
[2019-12-23] MEDS: ONDANSETRON HCL INJ 2MG/ML 2ML 2 MG/ML VIAL IV PRN ×4 (02:30→20:30)
[2019-12-23] MEDS: MORPHINE SULFATE INJ 4 MG/ML INJ 1ML IV PRN ×5 (02:30→20:30)
--- NOTE | 2019-12-23 06:30 | NUR ---
Peritoneal Dialysis completed.
--- NOTE | 2019-12-23 07:00 | NUR ---
Walking rounds done. Shift report given to oncoming nurse.
[2019-12-23 07:19] LABS: ANION GAP 13.4 mmol/L (8-16); CALCIUM 7.1 mg/dL (8.4-10.2); CREATININE, SERUM 6.23 mg/dL (0.72-1.25); POTASSIUM 5.4 mmol/L (3.5-5.1)
[2019-12-23] MEDS: INSULIN LISPRO 100 UNIT/1 ML 3ML VIAL SQ SCH ×7 (07:30→21:27)
[2019-12-23] MEDS: METOCLOPRAMIDE HCL 10 MG/2ML VIAL IV SCH ×3 (07:30→16:30)
--- NOTE | 2019-12-23 09:00 | NUR ---
The pt. refused morning dofe of kayexalate
[2019-12-23] MEDS: GABAPENTIN 300 MG CAP PO SCH ×3 (09:27→20:45)
[2019-12-23] MEDS: CALCITRIOL 0.25 MCG CAP PO SCH ×2 (09:27→17:00)
[2019-12-23] MEDS: NIFEDIPINE CR 30 MG TAB PO SCH ×2 (09:27→17:00)
[2019-12-23] MEDS: SOD POLYSTYRENE SULFONATE SUSP 15 GM/60 ML BTL PO SCH ×3 (09:27→13:00)
[2019-12-23] MEDS: MAGNESIUM OXIDE 400 MG TAB PO SCH ×3 (09:27→20:45)
[2019-12-23] MEDS: SODIUM BICARBONATE 650 MG TAB PO SCH ×3 (09:28→20:45)
[2019-12-23] MEDS: MEROPENEM 500MG/ NS 50ML 50 ML IV SCH ×2 (09:28→20:45)
[2019-12-23] MEDS: CALCIUM CARBONATE 500 MG CHEWABLE TABS PO SCH ×3 (09:28→20:45)
--- NOTE | 2019-12-23 13:00 | NUR ---
visiting and was advised that the pt. refused kayexalate and he stated that he has spoken to the pt. and too give thew med at this time.
[2019-12-23] MEDS ORDERED: FUROSEMIDE INJ 10 MG/ML 2 ML VIAL IV ONE (13:15)
--- NOTE | 2019-12-23 13:45 | Progress Note ---
DATE: 12/23/2019 Renal Progress Note SUBJECTIVE: Events over the past 24 hours has been noted, the patient refused his Kayexalate this morning. PHYSICAL EXAMINATION: VITAL SIGNS: Blood pressure 139/99, pulse 86, respiration 17. GENERAL: The patient is in no acute distress. HEENT: No increased JVD. CARDIOVASCULAR: Regular rate and rhythm. LUNGS: Clear to auscultation bilaterally. ABDOMEN: Positive bowel sounds. Nontender and nondistended. He has a Tenckhoff PD catheter. EXTREMITIES: No edema, cyanosis or clubbing. LABORATORY RESULTS: White count is 4.1, hemoglobin and hematocrit 11 and 38 respectively. Sodium 139, potassium 5.4, chloride 105, bicarbonate 26, BUN and creatinine 42 and 6.2 respectively, calcium 7.1. IMPRESSION: 1. Chronic kidney disease stage 5. 2. Hypocalcemia. 3. Hyperkalemia. The patient is supposed to be on Kayexalate daily. He refused the Kayexalate this morning. His potassium is elevated. He says he will accept the Kayexalate now. I also give him one dose of Lasix 20 mg IV since he does still have urine output and this will promote a kaliuresis. I am still going to do the six peritoneal dialysis with the prescription of six exchanges, but I will increase the dwell time from 1 hour to 1 hour and 15 minutes. We will use 2.5% dextrose solution since we did not ultrafilter any last night. He actually gained 465 mL of fluid. We were alternating 1.5% and 2.5% last night and he gained 465 mL, so tonight I will change it to 2.5% dextrose solution. Ather MD LAMAR Delacruz/NOREEN /[id number]
--- NOTE | 2019-12-23 19:25 | NUR ---
Patient received sitting up in bed. AAO x 4. No acute distress noted. Patient undergoing Peritoneal Dialysis. Safety measures implemented. Patient instructed to call for assistance when needed. Call light within reach.
[2019-12-24] VITALS (8 sets, daily range): BP systolic 115–136; BP diastolic 80–89
[2019-12-24] MEDS: MORPHINE SULFATE INJ 4 MG/ML INJ 1ML IV PRN ×6 (00:35→23:52)
[2019-12-24] MEDS: ONDANSETRON HCL INJ 2MG/ML 2ML 2 MG/ML VIAL IV PRN ×6 (00:35→23:52)
--- NOTE | 2019-12-24 00:50 | NUR ---
Region of suprapubic catheter insertion was cleaned with NS. Patient declined use of Non-woven drain sponge over catheter site.
[2019-12-24 05:57] LABS: ANION GAP 14.7 mmol/L (8-16); CALCIUM 7.2 mg/dL (8.4-10.2); CREATININE, SERUM 6.21 mg/dL (0.72-1.25); POTASSIUM 5.7 mmol/L (3.5-5.1)
[2019-12-24] MEDS: INSULIN LISPRO 100 UNIT/1 ML 3ML VIAL SQ SCH ×7 (07:30→21:42)
--- NOTE | 2019-12-24 08:00 | NUR ---
RECEIVED PATIENT RESTING IN BED. RESPIRATIONS EVEN AND BREATHING UNLABORED. VERBALIZED 4/10 FLANK PAIN. TELE APPLIED. CALL LIGHT WITHIN REACH. WILL CONTINUE TO MONITOR.
[2019-12-24] MEDS: MEROPENEM 500MG/ NS 50ML 50 ML IV SCH ×2 (09:18→21:15)
[2019-12-24] MEDS: CALCITRIOL 0.25 MCG CAP PO SCH ×2 (09:25→17:08)
[2019-12-24] MEDS: SODIUM BICARBONATE 650 MG TAB PO SCH ×3 (09:25→21:15)
[2019-12-24] MEDS: CALCIUM CARBONATE 500 MG CHEWABLE TABS PO SCH ×3 (09:29→21:15)
[2019-12-24] MEDS: MAGNESIUM OXIDE 400 MG TAB PO SCH ×3 (09:29→21:15)
[2019-12-24] MEDS: GABAPENTIN 300 MG CAP PO SCH ×3 (09:29→21:15)
[2019-12-24] MEDS: NIFEDIPINE CR 30 MG TAB PO SCH ×2 (09:30→17:09)
[2019-12-24] MEDS ORDERED: SOD POLYSTYRENE SULFONATE SUSP 15 GM/60 ML BTL PO NR (09:30)
[2019-12-24] MEDS: METOCLOPRAMIDE HCL 10 MG/2ML VIAL IV SCH ×3 (09:34→17:07)
[2019-12-24 13:51] LABS: ANION GAP 14.1 mmol/L (8-16); CALCIUM 7.1 mg/dL (8.4-10.2); CREATININE, SERUM 6.44 mg/dL (0.72-1.25); POTASSIUM 5.1 mmol/L (3.5-5.1)
--- NOTE | 2019-12-24 14:43 | NUR ---
Nutrition Screen Note RD Recommendation for Physician: Continue diet as ordered Plan of Care: RD following, monitoring for tolerance and adequacy Nutrition reason for involvement: LOS Primary Diagnose(s): UTI, hyperkalemia, ESRD Ht:71 in Wt:221.5lbs BMI:30.9 kg/m2 IBW:172lbs RD Assessment:(12/24/2019) Initial encounter with patient. Pt is eating well. No C/O N,V,D, nor has any difficulty chewing or swallowing. No known food allergies. Current Diet: 1800 renal diabetes diet Malnutrition Evaluation (12/24/2019) The patient does not meet criteria for a specified degree of malnutrition at this time. Will re-evaluate at follow-up as appropriate. Diet Education Needs Assessment: Diet education not indicated. Diet Adequacy: Meeting calorie needs, Meeting protein needs, Meeting fluid needs. Tolerance: Tolerating PO Nutrition Care Level: Ronnie Wright RD,LD,CNSC
[2019-12-24] MEDS: ONDANSETRON HCL 4 MG ORAL DISINTEGRATING TAB PO PRN (16:53)
--- NOTE | 2019-12-24 18:22 | NUR ---
PERITONEAL DIALYSIS STARTED.
--- NOTE | 2019-12-24 19:59 | NUR ---
PATIENT RESTING IN BED. RESPIRATIONS EVEN AND BREATHING UNLABORED. NO C/O PAIN VERBALIZED AT THIS TIME. TELE APPLIED. BESIDE SHIFT REPORT GIVEN TO ONCOMING NURSE.
[2019-12-25] VITALS (7 sets, daily range): BP systolic 123–145; BP diastolic 82–97
[2019-12-25] MEDS: MORPHINE SULFATE INJ 4 MG/ML INJ 1ML IV PRN ×4 (04:21→19:50)
[2019-12-25] MEDS: ONDANSETRON HCL INJ 2MG/ML 2ML 2 MG/ML VIAL IV PRN ×4 (04:21→19:50)
[2019-12-25 06:36] LABS: BASOPHILS % 0.3 % (0.0-1.0); EOSINOPHILS # (AUTO) 0.2 (0.0-0.4); HEMATOCRIT 38.1 % (38.2-49.6); HEMOGLOBIN 11.3 g/dL (14.0-18.0); LYMPHOCYTES # (AUTO) 0.9 (1.0-3.2); LYMPHOCYTES % 27.4 % (18.0-39.1); MEAN CORPUSCULAR HEMOGLOBIN 24.5 pg (28-32); MEAN CORPUSCULAR HGB CONC 29.7 g/dL (31-35); MEAN CORPUSCULAR VOLUME 82.5 fL (81-99); MONOCYTES # (AUTO) 0.4 (0.2-0.8); NEUTROPHILS # (AUTO) 1.9 (2.1-6.9); NEUTROPHILS % 54.1 % (38.7-80.0); PLATELET COUNT 73 x10e3/uL (140-360); RED BLOOD COUNT 4.62 x10e6/uL (4.3-5.7); RED CELL DISTRIBUTION WIDTH 16.6 % (11.7-14.4)
[2019-12-25 06:59] LABS: ANION GAP 15.2 mmol/L (8-16); CREATININE, SERUM 6.57 mg/dL (0.72-1.25); POTASSIUM 5.2 mmol/L (3.5-5.1)
--- NOTE | 2019-12-25 07:10 | NUR ---
PATIENT IS AWAKE, ALERT, AND IN STABLE CONDITION WITH NO S/S OF RESPIRATORY DISTRESS. PATIENT C/O LEFT FLANK PAIN 5/10. TELEMETRY APPLIED. SUPRAPUBIC CATH NOTED- CONNECTED TO SONG BAG; URINE IS CLEAR AND YELLOW. CALL LIGHT IS WITHIN REACH, PATIENT INSTRUCTED TO CALL FOR ASSISTANCE NEEDED.
[2019-12-25] MEDS: INSULIN LISPRO 100 UNIT/1 ML 3ML VIAL SQ SCH ×7 (07:30→21:00)
[2019-12-25] MEDS: MEROPENEM 500MG/ NS 50ML 50 ML IV SCH ×2 (08:00→19:50)
[2019-12-25] MEDS: GABAPENTIN 300 MG CAP PO SCH ×3 (08:00→19:50)
[2019-12-25] MEDS: CALCITRIOL 0.25 MCG CAP PO SCH ×2 (08:00→17:24)
[2019-12-25] MEDS: SODIUM BICARBONATE 650 MG TAB PO SCH ×3 (08:00→19:50)
[2019-12-25] MEDS: MAGNESIUM OXIDE 400 MG TAB PO SCH ×3 (08:00→19:50)
[2019-12-25] MEDS: METOCLOPRAMIDE HCL 10 MG/2ML VIAL IV SCH ×3 (08:01→17:25)
[2019-12-25] MEDS: NIFEDIPINE CR 30 MG TAB PO SCH ×2 (08:02→17:25)
[2019-12-25] MEDS: CALCIUM CARBONATE 500 MG CHEWABLE TABS PO SCH ×3 (08:09→19:50)
--- NOTE | 2019-12-25 18:57 | NUR ---
PATIENT IS IN STABLE CONDITION WITH NO S/S OF RESPIRATORY DISTRESS. NO PAIN VOICED. TELEMETRY APPLIED. PATIENT RECEIVING PERITONEAL DIALYSIS. CALL LIGHT IS WITHIN REACH, PATIENT INSTRUCTED TO CALL FOR ASSISTANCE NEEDED. REPORT GIVEN TO ONCOMING NURSE.
[2019-12-26] VITALS (9 sets, daily range): BP systolic 111–137; BP diastolic 75–91
[2019-12-26] MEDS: ONDANSETRON HCL INJ 2MG/ML 2ML 2 MG/ML VIAL IV PRN ×4 (02:27→15:07)
[2019-12-26] MEDS: MORPHINE SULFATE INJ 4 MG/ML INJ 1ML IV PRN ×6 (02:27→22:31)
[2019-12-26 06:13] LABS: ANION GAP 13.4 mmol/L (8-16); CALCIUM 7.7 mg/dL (8.4-10.2); CREATININE, SERUM 6.31 mg/dL (0.72-1.25); POTASSIUM 5.4 mmol/L (3.5-5.1)
--- NOTE | 2019-12-26 08:25 | NUR ---
CALLED AND LEFT MESSAGE FOR DR VALVERDE REGARDING ABNORMAL K+ ... WAITING FOR CALL BACK
[2019-12-26] MEDS ORDERED: SODIUM CHLORIDE 0.9% 250ML 250 ML ONE (08:27)
[2019-12-26] MEDS: MAGNESIUM OXIDE 400 MG TAB PO SCH ×3 (09:00→20:39)
[2019-12-26] MEDS: METOCLOPRAMIDE HCL 10 MG/2ML VIAL IV SCH ×3 (09:15→17:18)
[2019-12-26] MEDS: INSULIN LISPRO 100 UNIT/1 ML 3ML VIAL SQ SCH ×7 (09:15→20:29)
[2019-12-26] MEDS: MEROPENEM 500MG/ NS 50ML 50 ML IV SCH ×2 (09:15→20:39)
[2019-12-26] MEDS: GABAPENTIN 300 MG CAP PO SCH ×3 (10:46→20:39)
[2019-12-26] MEDS: CALCIUM CARBONATE 500 MG CHEWABLE TABS PO SCH ×3 (10:48→20:39)
[2019-12-26] MEDS: SODIUM BICARBONATE 650 MG TAB PO SCH ×3 (10:48→20:39)
[2019-12-26] MEDS: CALCITRIOL 0.25 MCG CAP PO SCH ×2 (10:48→17:18)
[2019-12-26] MEDS: NIFEDIPINE CR 30 MG TAB PO SCH ×2 (10:48→17:17)
--- NOTE | 2019-12-26 14:05 | Progress Note ---
DATE: 12/26/2019 ADDENDUM: I have spoken to the dialysis nurse yesterday. Eight exchanges were done. Each exchange had a 2 L fill volume and a 45-minute dwell time. The dwell time was 45 minutes. The fill volume was 2 L and there were eight exchanges, that is a good prescription. We used half 2.5% dextrose and half of it was 4.25% dextrose. However, he is still congested. I am going to go ahead and for tonight increase the ratio of the 4.25 dextrose from 1-1 to 3-1 in another words, he will have 8 changes, 6 of them will be with 4.25% dextrose and two of them will be 2.5% dextrose and the rest of the prescription will be the same eight exchanges and dwell time of 45 minutes and fill volume of 2 L. Ather MD LAMAR Delacruz/NOREEN /[id number]
[2019-12-26] MEDS: SOD POLYSTYRENE SULFONATE SUSP 15 GM/60 ML BTL PO SCH (15:06)
--- NOTE | 2019-12-26 15:36 | Progress Note ---
DATE: 12/26/2019 Renal Progress Note SUBJECTIVE: The patient has no complaints. No chest pain or shortness of breath. PHYSICAL EXAMINATION: VITAL SIGNS: Stable. Blood pressure 123/79, pulse 75, and respiration 20. GENERAL: The patient is in no acute distress. HEENT: No increased JVD. CARDIOVASCULAR: Regular rate and rhythm. LUNGS: Clear to auscultation. ABDOMEN: The patient has a PD catheter. Tenckhoff catheter placed. EXTREMITIES: No significant edema. LABORATORY RESULTS: Hemoglobin 11.3. Sodium 139, potassium 5.4, chloride 103, bicarbonate 28, BUN and creatinine 44 and 6.3 respectively, and calcium 7.7. IMPRESSION/PLAN: 1. Chronic kidney disease, stage 5. 2. Hyperkalemia. 3. Calcium is 7, hypocalcemia. PLAN: 1. The patient's calcium is starting to get better with the Rocaltrol and the Tums. He is still borderline hyperkalemic. He has not been getting Kayexalate. Apparently, I am going to prescribe oral daily Kayexalate. His prescription is a good prescription. He gets 7 exchanges with each fill volume is 2 L and the dwell time is 45 minutes and we are using 2.5% all the way. I think that is a good prescription. We will continue that. Today, actually I will increase. 2. He continues to 8 exchanges. We will increase the number of 8 exchanges, but I will keep the dwell time for 45 minutes and the fill volume for 2 L. I will just increase in from 7 to 8 exchanges. The patient can be discharged from a renal standpoint as an outpatient. He can get Veltassa through our office or Kayexalate. Ather MD LAMAR Delacruz/NOREEN /[id number]
[2019-12-26] MEDS: PROMETHAZINE 12.5MG/ NACL 0.9% 12.5 MG/50 ML BAG IV PRN ×2 (18:12→22:31)
[2019-12-27] VITALS: BP 126/79
[2019-12-27 04:00] VITALS: BP 139/87
[2019-12-27 05:27] LABS: ANION GAP 14.4 mmol/L (8-16); CALCIUM 7.6 mg/dL (8.4-10.2); CREATININE, SERUM 6.81 mg/dL (0.72-1.25); POTASSIUM 5.4 mmol/L (3.5-5.1)
[2019-12-27] MEDS ORDERED: MORPHINE SULFATE INJ 4 MG/ML INJ 1ML IV PRN (05:45)
[2019-12-27] MEDS: PROMETHAZINE 12.5MG/ NACL 0.9% 12.5 MG/50 ML BAG IV PRN (05:46)
[2019-12-27] MEDS: INSULIN LISPRO 100 UNIT/1 ML 3ML VIAL SQ SCH ×2 (07:30→08:00)
[2019-12-27 07:53] VITALS: BP 145/88
[2019-12-27 07:56] VITALS: BP 145/88
[2019-12-27] MEDS ORDERED: HYDROCODONE/APAP 10MG-325MG TAB PO PRN (08:45)
[2019-12-27] MEDS: NIFEDIPINE CR 30 MG TAB PO SCH (08:48)
[2019-12-27] MEDS: GABAPENTIN 300 MG CAP PO SCH (08:48)
[2019-12-27] MEDS: MAGNESIUM OXIDE 400 MG TAB PO SCH (08:48)
[2019-12-27] MEDS: SOD POLYSTYRENE SULFONATE SUSP 15 GM/60 ML BTL PO SCH (08:48)
[2019-12-27] MEDS: SODIUM BICARBONATE 650 MG TAB PO SCH (08:49)
[2019-12-27] MEDS: CALCITRIOL 0.25 MCG CAP PO SCH (08:49)
[2019-12-27] MEDS: CALCIUM CARBONATE 500 MG CHEWABLE TABS PO SCH (08:49)
--- NOTE | 2019-12-27 09:56 | NUR ---
dr oconnor advised pt k+ 5.4, okay to discharge home, pt call office in 1-2 days
[2019-12-27] MEDS ORDERED: NORCO 7.5-3251 EACH PO ×2 (09:59→10:00)
[2019-12-27] MEDS ORDERED: LOKELMA5 GM PO (10:02)
[2019-12-27] MEDS ORDERED: REGLAN5 MG PO (10:04)
[2019-12-27] MEDS ORDERED: PEPCID20 MG PO (10:06)
[2019-12-27] MEDS ORDERED: ZOFRAN4 MG SL (10:07)
[2019-12-27] MEDS ORDERED: FAMOTIDINE20 MG PO (10:10)
[2019-12-27 11:29] VITALS: BP 112/84
[2019-12-27] MEDS ORDERED: METOCLOPRAMIDE HCL 10 MG/2ML VIAL IV SCH (11:30)
--- NOTE | 2019-12-27 12:05 | Discharge Summary ---
CONSULTANTS: 1. Dr. Castro Jalloh. 2. Dr. Lew Karimi. FINAL DIAGNOSES: 1. Complicated urinary tract infection with indwelling Barcenas catheter. 2. Persistent hyperkalemia associated with high potassium treatment. 3. End-stage renal disease on peritoneal dialysis. 4. Electrolyte disorder. 5. Persistent nausea and vomiting secondary to gastroparesis. 6. Intractable nausea and vomiting, improving. 7. Hypertension. 8. Advanced diabetes type 1 with complication of diabetic neuropathy, renal failure. HISTORY OF PRESENT ILLNESS: A 39-year-old male with persistent nausea and vomiting. The patient came in with abdominal pain and nausea and vomiting, also had chronic complicated urinary tract infection secondary to suprapubic Barcenas catheter. The patient admitted for IV antibiotic, but also his potassium was elevated. The potassium on admission was 5.9. The patient was getting peritoneal dialysis and also Kayexalate. The patient had persistent hyperkalemia. He also had nausea and vomiting intractably started on Reglan as well. The patient with abdominal pain and chronic knee pain. The patient continued with treatment. Potassium now is 5.4. Apparently, he was on Lokelma, but he stopped. The patient will need to resume Lokelma at 5 g package per day. Discussed with Dr. Lew Karimi regarding we treat the patient with high potassium. The patient will be discharged home with Lokelma 5 g package daily. He was also getting other supportive medication. One of which including Reglan 10 mg before meals if needed for nausea. The patient is starting on [place] 7.5 mg as needed for pain as well. Prescriptions are given. The patient is stable. Discussed with the patient regarding treatment planning that he need to follow up in the office on a weekly basis for potassium check. He will continue with peritoneal dialysis. He will resume his other home medication. The patient is otherwise stable. Discussed with the patient regarding planning for the future probably early next year regarding urological procedures and subsequent renal transplant planning as mentioned previously. The patient is stable, discharged home today. Renal diabetic diet. Resume home medication. Activity as tolerated. May return to work. Prescriptions given. Follow up in the office weekly. MD SADA Haywood/NORENE /[id number]
--- NOTE | 2019-12-27 12:22 | NUR ---
right hand IV discontinued. no signs of infiltration noted. 2x2 gauze and coban placed
--- NOTE | 2019-12-27 12:22 | NUR ---
Patient off floor at 1222 via wheelchair. Pt in no apparent distress.
--- OUTSIDE RECORDS SUMMARY | 2019-12-29 17:02 | XMS REPORT | Clinical Summary ---
Author Author Alej[facility] Organization [facility] Address Unknown Phone Unavailable Care Team Providers Care Mail Carrier And Clerk Name Role Phone Donald Potts MD PCP [...] Julito Gaurav Kidney Follow-up (TXP - [employer] [place] - RENAL/PANCREAS TXP AUTH PENDING) 09/14/2019 Documentation [...] Transplant Julito Gaurav Kidney Follow-up (TXP - [facility] - RENAL EVAL APPRVL) 03/29/2019 Documentation Transplant Bisi Crawford RN End stage renal disease (HCC) (Primary D x); Type 1 diabetes mellitus with other specified complication (HCC) 02/25/2019 Orders Only Transplant Melani Finney MA Referral - Kidney/Pancreas Txp 02/21/2019 Telephone Transplant after 12/18/2018 Surgical History Surgery Date Site/Laterality Comments JOINT REPLACEMENT Rt knee external fixator CHOLECYSTECTOMY 02/23/2015 - 02/23/2016 CYSTOSCOPY W/ URETERAL 11/24/2015 STENT PLACEMENT - 12/24/2015 ARTHROPLASTY, KNEE, TOTAL 03/27/2016 Knee/N/A Proc edure: RIGHT KNEE ANTIBIOTIC REMOCAL, RIGHT TOTAL KNEE ARTHROPLASTY; Surgeon: Silke Chowdary MD; Location: [facility] OR; ervice: Orthopedics; Laterality: N/A; Medical devices from this surgery are i n the Implants section. SUPRAPUBIC CATHETER 02/23/2017 - INSERTION 03/25/2017 CYSTOSCOPY W/ URETERAL 12/24/2016 STENT REMOVAL - 01/22/2017 REVISION, ARTHROPLASTY, 04/16/2017 Knee/Right Proced ure: RIGHT TOTAL KNEE ARTHROPLASTY REVISION; KNEE COMPLEX WOUND CLOSURE, EXCI JAMAL DISTAL FEMUR; Surgeon: Silke Chowdary MD; Location: [facility] OR; Service: Orthopedics; Laterality: Right; [...] notified and will call patient Patient is Roman Catholic Kika Tierney noti fied and will call patient. Suprapubic catheter (HCC) 03/24/2017 in placed. m id abdomen Neurogenic bladder Wears glasses Does not exercise due to knee problem. Gallstones 2009 with surgery Dentition All teeth intact and secure d PONV (postoperative nausea and vomiting) Chronic kidney disease (CKD), stage IV (severe) ([facility]) History of pancreatitis Gall stone Foot drop, [...] Health Maintenance Due Date Last Done Comments DIABETES: RETINAL EYE 1990 EXAM DIABETIC FOOT EXAM 1990 INFLUENZA VACCINE 09/24/2019 Implants Device Identifier Shelf Expiration Date Model / Serial / L ot Implanted Type Area Manufactur er 11/22/2025 [id number] / / [id number] Screw Bone Canc Dome 6.5x25mm Ltxf Hip Joint Right: Knee DEPUY [place] - [id number] Implants ORTHO Implanted: Qty: 1 on 03/27/2016 by Silke Chowdary MD at [facility] 01/22/2026 [id number] / / [id number] Screw Bone Canc Dome 6.5x25mm Ltxf Hip Joint Right: Knee DEPUY [place] - [id number] Implants ORTHO Implanted: Qty: 1 on 03/27/2016 by Silke Chowdary MD at [facility] 10/23/2026 [id number] / / [id number] [place] Stem [id number] Fluted - IPM Right: Knee DEPUY [id number] IMPLANT ORTHOPAEDI Implanted: Qty: 1 on 04/16/2017 by [employer] Silke Chowdary MD at [facility] 12/23/2026 [id number] / / [id number] [place] Fem Slv Ful Por 40mm - IPM Right: Knee DEPUY [id number] IMPLANT ORTHOPAEDI Implanted: Qty: 1 on 04/16/2017 by [employer] Silke Chowdary MD at [facility] 11/22/2025 [id number] / / [id number] [facility]s/S/ 10mm - IPM Right: Knee DEPUY [id number] IMPLANT ORTHOPAEDI Implanted: Qty: 1 on 04/16/2017 by [employer] Silke Chowdary MD at [facility] 11/22/2024 [id number] / / [id number] Srom [facility] Dist Aug Xs/S/ 10mm - IPM Right: Knee DEPUY [id number] IMPLANT ORTHOPAEDI Implanted: Qty: 1 on 04/16/2017 by [employer] Silke Chowdary MD at [facility] 10/23/2021 [id number] / / [id number] [facility]/Pin Med Rt 71x66 - IPM Right: Knee DEPUY [id number] IMPLANT ORTHOPAEDI Implanted: Qty: 1 on 04/16/2017 by [employer] Silke Chowdary MD at [facility] 10/24/2019 [id number] / / [id number] Lps Univ Tib Hin Ins Med 31mm - IPM Right: Knee DEPUY [id number] IMPLANT ORTHOPAEDI Implanted: Qty: 1 on 04/16/2017 by [employer] Silke Chowdary MD at [facility] 01/22/2026 [id number] / / [id number] Augment Fml P.F.[employer] Sigma Distl Rt Sz Knee Joint Right: Kne e DEPUY 5 4mm - [id number] Implants ORTHO Implanted: Qty: 1 on 03/27/2016 by Silke Chowdary MD at [facility] 01/22/2026 [id number] / / [id number] Stem Tib Cementd 66n14wd P.F.C Knee Joint Right: Knee DEPUY Sigma - [id number] Implants ORTHO Implanted: Qty: 1 on 03/27/2016 by Silke Chowdary MD at [facility] 10/22/2020 [id number] / / [id number] Augment Fml P.F.C Sigma Distl Rt Sz Knee Joint Right: Kne e DEPUY 5 8mm - [id number] Implants ORTHO Implanted: Qty: 1 on 03/27/2016 by Silke Chowdary MD at [facility] 09/22/2025 [id number] / / [id number] Stem Tib Cementd 25b12bg Knee Joint Right: Knee DEPUY [employer].Sigma - [id number] Implants ORTHO Implanted: Qty: 1 on 03/27/2016 by Silke Chowdary MD at [facility] 12/23/2020 [id number] / / [id number] Patella Prosths Oval / Dome 3-Post Knee Joint Right: Knee DEPUY 38mm Std Uhmwpe - [id number] Implants ORTHO Implanted: Qty: 1 on 03/27/2016 by Silke Chowdary MD at [facility] 05/23/2020 [id number] / / [id number] Insert Tib Stblzd Rp Sz 5 25mm Knee Joint Right: Knee DEPUY P.F.[employer] Sigma - [id number] Implants ORTHO Implanted: Qty: 1 on 03/27/2016 by Silke Chowdary MD at [facility] 02/22/2026 [id number] / / [id number] Tray Rev Mbt 5x53.1x80.6x61.8mm - Knee Joint Right: Knee DEPUY [id number] Implants ORTHO Implanted: Qty: 1 on 03/27/2016 by Silke Chowdary MD at [facility] 09/22/2025 [id number] / / [id number] Component Fml Rt N-Por Tc3 Sz 5 Knee Joint Right: Knee DEPUY [id number] P.F.C Sigma - [id number] Implants ORTHO Implanted: Qty: 1 on 03/27/2016 by Silke Chowdary MD at [facility] 01/22/2026 [id number] / / [id number] Adapter Fml P.F.C Sigma 5deg - Knee Joint Right: Knee DEPUY [id number] Implants ORTHO-KNEE Implanted: Qty: 1 on 03/27/2016 by Silke Gutierres MD at [facility] 11/22/2025 [id number] / / [id number] Adapter Fml P.F.C Sigma Ofst [place] Knee Joint Right: Knee DEPUY +2/-2mm - [id number] Implants ORTHO-KNEE Implanted: Qty: 1 on 03/27/2016 by Silke Gutierres MD at [facility] 01/22/2017 [id number] / / [id number] Cement Bone Hiviscocty 40gr Surgical Right: Knee DE PUY Smartset - [id number] Bone ORTHO Implanted: Qty: 2 on 03/27/2016 by Silke Monge MD at [facility] 12/23/2016 [id number] / / [id number] Cement Bone Hiviscocty 40gr Surgical Right: Knee DE PUY Smartset - [id number] Bone ORTHO Implanted: Qty: 1 on 03/27/2016 by Silke Monge MD at [facility] 10/23/2018 [id number] / / [id number] Cement Bone Hiviscocty 40gr Surgical Right: Knee DE PUY Smartset - [id number] Bone ORTHO Implanted: 04/16/2017 at [facility] (Quantity not on file) 12/24/2020 [id number] / / [id number] Cement Bone Prep Univl Insrtr Sculp Surgical Right: Letye e SANDOR Fml Canal Roland Suct Sm - [id number] Implants; IN STRUMENT Implanted: Qty: 1 on 03/27/2016 by [employer]; S Silke Chowdary MD at [facility] Extenders; Surgical Wires [id number] / / Immobilizer Knee Tripnl Dlx W/ Patl Surgical N/A: N/A DEROYAL Strp Univl Canvas 24in - [id number] Implants; IN DUSTRIES Implanted: 04/16/2017 at [facility] [employer]; HOSPITAL (Quantity not on file) [...] (HCC) URINE CULTURE Routine 04/06/2019 8:57 AM PNEUMATIC HOIST OPERATOR TREPONEMA PALLIDUM AB Routine 04/06/2019 8:00 AM PNEUMATIC HOIST OPERATOR RPR Routine 04/06/2019 8:00 AM PNEUMATIC HOIST OPERATOR HEPATITIS A ANTIBODY IGM Routine 04/06/2019 8:00 AM PNEUMATIC HOIST OPERATOR ESTIMATED GFR Routine 04/06/2019 8:00 AM PNEUMATIC HOIST OPERATOR DRUG YUEN 9, SER/LILIAN, SCRN Routine 04/06/2019 End stage renal disease W/RFLX TO CONF 8:00 AM PNEUMATIC HOIST OPERATOR (HCC) Type 1 diabetes mellitus with other specified complication (HCC) ABO/RH Routine 04/06/2019 End stage renal disease 8:00 AM PNEUMATIC HOIST OPERATOR (HCC) Type 1 diabetes mellitus with other specified complication (HCC) NICOTINE AND COTININE, Routine 04/06/2019 End sta ge renal disease SERUM 8:00 AM PNEUMATIC HOIST OPERATOR (HCC) Type 1 diabetes mellitus with other specified complication (HCC) IA-2 ANTIBODY Routine 04/06/2019 End stage renal disease 8:00 AM PNEUMATIC HOIST OPERATOR (HCC) Type 1 diabetes mellitus with other specified complication (HCC) ISLET CELL AB, IGG Routine 04/06/2019 End stage r enal disease 8:00 AM PNEUMATIC HOIST OPERATOR (HCC) Type 1 diabetes mellitus with other specified complication (HCC) GLUTAMIC ACID Routine 04/06/2019 End stage renal disease DECARBOXYLASE AB 8:00 AM PNEUMATIC HOIST OPERATOR (HCC) Type 1 diabetes mellitus with other specified complication (HCC) HEMOGLOBIN A1C Routine 04/06/2019 End stage renal disease 8:00 AM PNEUMATIC HOIST OPERATOR (HCC) Type 1 diabetes mellitus with other specified complication (HCC) C-PEPTIDE Routine 04/06/2019 End stage renal disease 8:00 AM PNEUMATIC HOIST OPERATOR (HCC) Type 1 diabetes mellitus with other specified complication (HCC) PARTIAL THROMBOPLASTIN Routine 04/06/2019 End sta ge renal disease TIME (PTT) 8:00 AM PNEUMATIC HOIST OPERATOR (HCC) Type 1 diabetes mellitus with other specified complication (HCC) PROTHROMBIN TIME WITH INR Routine 04/06/2019 End stage renal disease 8:00 AM PNEUMATIC HOIST OPERATOR (HCC) Type 1 diabetes mellitus with other specified complication (HCC) HC COMPLETE BLD COUNT Routine 04/06/2019 End stag e renal disease W/AUTO DIFF 8:00 AM PNEUMATIC HOIST OPERATOR (HCC) Type 1 diabetes mellitus with other specified complication (HCC) SYPHILIS TOTAL ANTIBODY Routine 04/06/[address] age renal disease 8:00 AM PNEUMATIC HOIST OPERATOR (HCC) Type 1 diabetes mellitus with other specified complication (HCC) HEPATITIS C ANTIBODY Routine 04/06/2019 End stage renal disease 8:00 AM PNEUMATIC HOIST OPERATOR (HCC) Type 1 diabetes mellitus with other specified complication (HCC) HEPATITIS B SURFACE Routine 04/06/2019 End stage renal disease ANTIGEN 8:00 AM PNEUMATIC HOIST OPERATOR (HCC) Type 1 diabetes mellitus with other specified complication (HCC) HEPATITIS B SURFACE AB, Routine 04/06/[address] age renal disease QUANTITATIVE 8:00 AM PNEUMATIC HOIST OPERATOR (HCC) Type 1 diabetes mellitus with other specified complication (HCC) HEPATITIS B CORE ANTIBODY Routine 04/06/2019 End stage renal disease TOTAL 8:00 AM PNEUMATIC HOIST OPERATOR (HCC) Type 1 diabetes mellitus with other specified complication (HCC) HEPATITIS A ANTIBODY Routine 04/06/2019 End stage renal disease TOTAL 8:00 AM PNEUMATIC HOIST OPERATOR (HCC) Type 1 diabetes mellitus with other specified complication (HCC) HIV AG/AB COMBINATION Routine 04/06/2019 End stag e renal disease 8:00 AM PNEUMATIC HOIST OPERATOR (HCC) Type 1 diabetes mellitus with other specified complication (HCC) URINALYSIS SCREEN AND Routine 04/06/2019 End stag e renal disease MICROSCOPY, WITH REFLEX 8:00 AM PNEUMATIC HOIST OPERATOR (HCC) TO CULTURE Type 1 diabetes mellitus with other specified complication (HCC) COMPREHENSIVE METABOLIC Routine 04/06/[address] age renal disease PANEL 8:00 AM PNEUMATIC HOIST OPERATOR (HCC) Type 1 diabetes mellitus with other specified complication (HCC) after 12/18/2018 Results * POC glucose (08/19/2019 12:21 PM CDT) Only the most recent of 22 results within the time period is included. POC glucose 145 (H) 65 - 99 mg/dL THERMAL Comment: ISLAM Certified Personal Chef Name: [facility] Device ID: [id number] Chartable: [facility] Notified RN Specimen Blood Performing Organization Address City/State/ZIP Code P pascale Number [facility] DEPARTMENT OF [address] [place] [address] PATHOLOGY AND GENOMIC MEDICINE THERMAL ISLAM [address] [place] [address] * Urine culture (08/18/2019 10:47 PM CDT) Only the most recent of 3 results within the time period is included. Urine culture No growth after 24 hours THERMAL isolate Comment: ISLAM Specimen Information HOSPITAL Specimen Source: Urine Specimen Site: Catheterized Specimen Urine - Catheterized Performing Organization Address City/State/ZIP Code P pascale Number [facility] [place] [address] PATHOLOGY AND GENOMIC MEDICINE [address] * Urinalysis screen and microscopy, with reflex to culture (08/18/2019 9:05 PM CDT) Only the most recent of 3 results within the time period is included. Specimen site Catheterized [facility] Color, UA Straw [facility] Appearance, UA Hazy [facility] Specific 1.012 1.001 - 1.035 THERMAL gravity, [facility] pH, UA 5.0 5.0 - 8.5 [facility] Protein, UA 1+ (A) Negative [facility] Glucose, UA 2+ (A) Negative [facility] Ketones, UA Negative Negative [facility] Bilirubin, UA Negative Negative [facility] Blood, UA Moderate (A) Negative [facility] Nitrite, UA Negative Negative [facility] Urobilinogen, <2.0 <2.0 [facility] Leukocyte Small (A) Negative [facility] WBC, UA 25 (H) 0 - 1 /HPF [facility] RBC, UA 4 0 - 5 /HPF [facility] Bacteria, UA Few None seen [facility] Yeast, UA None seen [facility] Yeast with None seen [facility] Specimen Urine Performing Organization Address City/[facility] P pascale Number [facility] [place] [address] PATHOLOGY AND GENOMIC MEDICINE [address] * Hepatitis B surface antigen (08/16/2019 4:45 AM CDT) Only the most recent of 2 results within the time period is included. Hepatitis B Non-reactive Non-reactive [facility] Specimen Blood Performing Organization Address City/State/ZIP Code P pascale Number [facility] [place] [address] PATHOLOGY AND GENOMIC MEDICINE [address] * COVID-19 qualitative PCR (08/16/2019 12:30 AM CDT) Interpretation Negative results do not STYLES preclude 2019-nCoV infection ISLAM and should not be used as the HOSPITAL sole basis for treatment or other patient management decisions. Negative results must be combined with clinical observations, patient history, and epidemiological information. COVID-19 Not-Detected Not-Detected THERMAL qualitative PCR IS[facility]AM result HOSPITAL COVID-19 See link below for PDF Lab THERMAL qualitative PCR ReportComment: Case Number: ISLAM [id number] HOSPITAL Specimen Performing Organization Address [facility]/ZIP [facility] [place]ale Number [facility] DEPARTMENT OF [address] [place] [address] PATHOLOGY AND GENOMIC MEDICINE [address] * Estimated GFR (08/15/2019 4:42 AM CDT) Only the most recent of 4 results within the time period is included. [facility] Estimated GFR 13 (A) mL/min/1.73 m2 THERMAL Comment: [facility] Interpretation G1 >=90 Normal or high [...] published in 2014. Specimen Performing Organization Address City/[facility] P pascale Number [facility] [place] [address] PATHOLOGY AND GENOMIC MEDICINE [address] * CBC with platelet and differential (08/15/2019 4:42 AM CDT) Only the most recent of 3 results within the time period is included. Pathologist [facility] WBC 3.73 (L) 4.50 - 11.00 k/uL [facility] RBC 4.16 (L) 4.40 - 6.00 m/uL [facility] HGB 10.1 (L) 14.0 - 18.0 g/dL [facility] HCT 34.5 (L) 41.0 - 51.0 % [facility] MCV 82.9 82.0 - 100.0 fL [facility] MCH 24.3 (L) 27.0 - 34.0 pg [facility] MCHC 29.3 (L) 31.0 - 37.0 g/dL [facility] RDW - SD 42.0 37.0 - 55.0 fL [facility] MPV 8.5 (L) 8.8 - 13.2 fL [facility] Platelet count 190 150 - 400 k/uL [facility] Nucleated RBC 0.00 /100 WBC [facility] Neutrophils 56.8 39.0 - 69.0 % [facility] Lymphocytes 30.3 25.0 - 45.0 % [facility] Monocytes 7.5 0.0 - 10.0 % [facility] Eosinophils 3.5 0.0 - 5.0 % [facility] Basophils 0.3 0.0 - 1.0 % [facility] Immature 1.6 (H)Comment: "Immature 0.0 - 1.0 % [facility] granulocytes granulocytes" (promyelocytes, [facility] myelocytes, metamyelocytes) [facility] Specimen Blood Performing Organization Address City/[facility]/ZIP Code P pascale Number [facility] [place] [address] PATHOLOGY AND GENOMIC MEDICINE [address] * Hemoglobin A1c (08/15/2019 4:42 AM CDT) Only the most recent of 2 results within the time period is included. Pathologist [facility] Hemoglobin A1C 6.5 (H) 4.0 - 5.6 % THERMAL Comment: ISLAM HbA1c cutoffs for diagnosing HOSPITAL diabetes: 4.0% [...] Organization Address City/State/ZIP Code P pascale Number [facility] [place] [address] PATHOLOGY AND GENOMIC MEDICINE [address] * Basic metabolic panel (08/15/2019 4:42 AM CDT) Pathologist [facility] Sodium 139 135 - 148 mEq/L [facility] Potassium 4.4 3.5 - 5.0 mEq/L [facility] Chloride 101 98 - 112 mEq/L [facility] CO2 23 (L) 24 - 31 mEq/L [facility] Anion gap 15@ANIO 7 - 15 mEq/L [facility] BUN 36 (H) 6 - 20 mg/dL [facility] Creatinine 5.25 (H) 0.70 - 1.20 mg/dL [facility] Glucose 146 (H) 65 - 99 mg/dL [facility] Calcium 8.2 (L) 8.3 - 10.2 mg/dL [facility] Specimen Blood Performing Organization Address City/[facility] P pascale Number [facility] [place] [address] PATHOLOGY AND GENOMIC MEDICINE [address] * ECG 12 lead (08/15/2019 1:09 AM CDT) Ventricular 99 [facility] rate Atrial rate 99 [facility] MD interval 106 [facility] QRSD interval 92 [facility] QT interval 370 [facility] QTC interval 474 [facility] P axis 1 26 [facility] QRS axis 1 1 [facility] T wave axis 75 [facility] EKG impression Sinus rhythm with short [facility] MD-Cannot rule out Inferior infarct , age undetermined-Abnormal ECG-In automated comparison with ECG of 08-APR-2017 16:07,-MD interval has decreased-Questionable change in QRS axis-ST no longer elevated in Inferior leads-T wave amplitude has decreased in Inferior leads-Nonspecific T wave abnormality now evident in Lateral leads-QT has lengthened- Specimen Narrative Performed At This result has an attachment that is n ot available. Performing Organization Address City/[facility]/ZIP Code P pascale Number [facility] MUSE [address] [place] [address] * Crystal analysis (08/14/2019 6:30 PM CDT) Pathologist [facility] Crystal KneeComment: Right knee joint THERMAL analysis aspirate ISLAM specimen type HOSPITAL Monosodium None seen None seen [facility] CPPD crystals None seen None seen [facility] Specimen Fluid Performing Organization Address City/[facility]/ZIP Code P pascale Number [facility] [place] [address] [address] [facility] MEDICINE [address] * Cell count and differential, body fluid (08/14/2019 6:30 PM CDT) Misc fluid type Synovial [facility] Color, fluid Red [facility] Appearance, Hazy [facility] RBC, fluid 36,000 /CMM [facility] Nucleated 20,934 /CMM THERMAL cells, [facility] Fluid See Diff THERMAL mononuclear [facility] Neutrophils, 89 % [facility] Lymphocytes, 2 % [facility] Macrophages, 9 % [facility] Specimen Fluid Performing Organization Address City/[facility]/ZIP Code P pascale Number [facility] [place] [address] [facility] MEDICINE [address] * Fungus smear (08/14/2019 6:28 PM CDT) Fungus smear No fungi observed. STYLES Comment: ISLAM Specimen Information HOSPITAL Specimen Source: Specimen Site: Knee Specimen Knee Performing Organization Address City/[facility]/ZIP Code P pascale Number [facility] [place] [address] [facility] MEDICINE [address] * AFB culture (08/14/2019 6:28 PM CDT) Pathologist [facility] AFB culture No growth after 6 weeks of THERMAL isolate incubation. ISLAM Comment: HOSPITAL Specimen Information Specimen Source: Specimen Site: Knee Specimen Knee Performing Organization Address City/[facility]/ZIP Code P pascale Number [facility] [place] [address] [address] [facility] MEDICINE [address] * AFB stain (08/14/2019 6:28 PM CDT) Pathologist [facility] AFB stain No acid fast bacilli (AFB) THERMAL seen. ISLAM Comment: HOSPITAL Specimen Information Specimen Source: Specimen Site: Knee Specimen Knee Performing Organization Address City/State/ZIP Code P p[place]ale Number [facility] [place] [address] [facility] MEDICINE [address] * Fungus culture (08/14/2019 6:28 PM CDT) Fungus culture No growth after 4 weeks of THERMAL isolate incubation. ISLAM Comment: HOSPITAL Specimen Information Specimen Source: Specimen Site: Knee Specimen Knee Performing Organization Address City/State/ZIP Code P pascale Number [facility] DEPARTMENT OF [address] [place] [address] PATHOLOGY AND GENOMIC MEDICINE THERMAL ISLAM [address] [place] [address] HOSPITAL * Anaerobic culture (08/14/2019 6:28 PM CDT) Anaerobic No anaerobic organisms THERMAL culture isolate isolated. ISLAM Comment: HOSPITAL Specimen Information Specimen Source: Specimen Site: Knee Specimen Synovium - Knee Performing Organization Address City/[facility]/ZIP Code P pascale Number [facility] DEPARTMENT OF [address] [place] [address] [facility] MEDICINE [address] * Aerobic culture (08/14/2019 6:03 PM CDT) Aerobic culture No growth after 3 days. STYLES isolate No growth after 4 days. ISLAM Comment: HOSPITAL Specimen Information Specimen Source: Specimen Site: Knee Specimen Knee Performing Organization Address City/[facility]/ZIP Code P pascale Number [facility] DEPARTMENT OF [address] [place] [address] [facility] MEDICINE [address] * Gram stain (08/14/2019 6:03 PM CDT) Gram stain Many WBC's STYLES isolate No organisms seen ISLAM Comment: HOSPITAL Specimen Information Specimen Source: Specimen Site: Knee Specimen Knee Performing Organization Address City/[facility]/ZIP Code P pascale Number [facility] DEPARTMENT OF [address] [place] [address] [facility] [place]IC[place] [address] HOSPITAL * Blood culture, aerobic & anaerobic (08/14/2019 4:45 PM CDT) Only the most recent of 2 results within the time period is included. Blood culture No growth after 5 days of THERMAL isolate incubation. ISLAM Comment: HOSPITAL Specimen Information Specimen Source: Blood Specimen Site: Unspecified Specimen Blood Performing Organization Address City/[facility]/ZIP Code P pascale Number [facility] DEPARTMENT OF [address] [place] [address] [facility] MEDICINE THERMAL ISLAM [address] * Partial thromboplastin time, activated (08/14/2019 4:15 PM CDT) Only the most recent of 2 results within the time period is included. Pathologist [facility] [place] PTT 35.3 23.0 - 36.0 sec THERMAL Comment: ISLAM PTT therapeutic range for HOSPITAL unfractionated heparin is 61.0-112.0 seconds which corresponds to Anti-Xa 0.3-0.7 U/ml. Specimen Blood Performing Organization Address City/[facility]/ZIP Code P pascale Number [facility] [place] [place] [address] PATHOLOGY [facility] MEDICINE [address] * Sedimentation rate (08/14/2019 4:15 PM CDT) Pathologist [facility] [place] Sedimentation 87 (H) 0 - 10 mm/hr [facility] Specimen Blood Performing Organization Address [facility] P pascale Number [facility] [place] [address] [address] [facility] MEDICINE [address] * Prothrombin time with INR (08/14/2019 4:15 PM CDT) Only the most recent of 2 results within the time period is included. Pathologist [facility] [place] Prothrombin 16.0 (H) 11.5 - 14.5 sec [facility] INR 1.3 THERMAL Comment: ISLAM The International Normalized HOSPITAL Ratio (INR) is a therapeutic monitoring tool for patients who are stable on oral anticoagulant therapy. An INR of 2.0-3.0 is suggested for deep vein thrombosis/pulmonary embolism. Specimen Blood Performing Organization Address City/[facility] P pascale Number [facility] [place] [place] [address] [facility] MEDICINE [address] * C-reactive protein (08/14/2019 4:15 PM CDT) [facility] CRP 5.40 (H) 0.00 - 0.50 mg/dL [facility] Specimen Blood Performing Organization Address City/[facility]/ZIP [facility] P pascale Number [facility] [place] [address] [facility] MEDICINE [address] * Comprehensive metabolic panel (08/14/2019 4:15 PM CDT) Only the most recent of 2 results within the time period is included. Sodium 138 135 - 148 mEq/L [facility] Potassium 4.2 3.5 - 5.0 mEq/L [facility] Chloride 102 98 - 112 mEq/L [facility] CO2 24 24 - 31 mEq/L [facility] Anion gap 12@ANIO 7 - 15 mEq/L [facility] BUN 35 (H) 6 - 20 mg/dL [facility] Creatinine 5.44 (H) 0.70 - 1.20 mg/dL [facility] Glucose 233 (H) 65 - 99 mg/dL [facility] Calcium 8.1 (L) 8.3 - 10.2 mg/dL [facility] Protein 7.3 6.3 - 8.3 g/dL THERMAL Comment: [facility] [place] 4.6-7.0 g/dL 1 week 4.4-7.6 g/dL 7 months-1year 5.1-7.3 g/dL 1-2 years 5.6-7.5 g/dL >3 years 6.0-8.0 g/dL 18-150 6.3-8.3 g/dL Albumin 1.9 (L) 3.5 - 5.0 g/dL [facility] A/G ratio 0.4 (L) 0.7 - 3.8 [facility] Alkaline 216 (H) 40 - 129 U/L THERMAL phosphatase [facility] AST 14 10 - 50 U/L [facility] ALT 13 5 - 50 U/L [facility] Total bilirubin <0.2 0.0 - 1.2 mg/dL [facility] Specimen Blood Performing Organization Address City/State/ZIP Code P pascale Number [facility] DEPARTMENT OF [address] [place] [address] PATHOLOGY AND GENOMIC MEDICINE [address] * XR Knee 4+ Vw Right [...] patellar component appear intact. No loosening noted. [facility] Procedure Note Interface, Radiology Results Incoming - [...] c omponent appear intact. No loosening noted. [facility] Performing Organization Address City/State/ZIP Code P pascale Number [facility] [address] [place] [address] * Cardiolipin antibodies (08/01/2019 12:17 PM CDT) Only the most recent of 2 results within the time period is included. Cardiolipin IgG 5 0 - 14 GPL THERMAL Comment: ISLAM Negative <15 GPL HOSPITAL Indeterminate 15-20 GPL Positive >20 GPL Cardiolipin IgM 7 0 - 12 MPL THERMAL Comment: ISLAM Negative <13 MPL HOSPITAL Indeterminate 13-20 MPL Positive >20 MPL Specimen Blood Performing Organization Address [facility] P pascale Number [facility] DEPARTMENT OF [address] [place] [address] PATHOLOGY AND GENOMIC MEDICINE THERMAL ISLAM [address] [place] [address] HOSPITAL * XR Chest 2 Vw (05/03/2019 [...] demonstr ate no definite abnormality. Negative examination. [facility]-[id number] Procedure Note Interface, Radiology Results Incoming - [...] structures demonstrate no definite abnormality. Negative examination. [facility]-[id number] Performing Organization Address City/State/ZIP Code P pascale Number [facility] [address] [place] [address] * CT Abdomen Pelvis Wo Contrast (05/03/2019 [...] lymph nodes, nonspecific though may be reactive. [id number] Procedure Note Hm Interface, Radiology Results Incoming - 05/03/2019 9:40 [...] lymph nodes, nonspecific though may be reactive. [id number] Performing Organization Address [facility] [place] [address] * Low resolution full typing by SSO (05/03/2019 8:30 AM CDT) Interpretation Note: HLA typing was performed [place] N by PCR-SSO DNA based ISLAM procedures. HOSPITAL Note: The serological phenotype is an interpretation based on molecular typing data. [facility] Low resolution See link below for PDF Lab THERMAL full typing by Report ISLAM [facility]PITAL Specimen Blood Performing Organization Address [facility] P pascale Number [facility] [place] [address] PATHOLOGY AND GENOMIC MEDICINE [address] * C1Q class 1 & 2 antibody (05/03/2019 8:30 AM CDT) [facility] C1Q class 1 & 2 See link below for PDF Lab THERMAL antibody Report [facility] Specimen Blood Performing Organization Address [facility] P pascale Number [facility] [place] [address] PATHOLOGY AND GENOMIC MEDICINE [facility] * HSV 1 & 2 glycoprotein G Ab, IgG (05/03/2019 8:30 AM CDT) Pathologist [facility] [place] HSV 1 NegativeComment: Negative: No Negative THERMAL glycoprotein G IgG antibodies to HSV1 ISLAM Ab, IgG detected. HOSPITAL HSV 2 NegativeComment: Negative: No Negative THERMAL glycoprotein G IgG antibodies to HSV2 ISLAM Ab, IgG detected. HOSPITAL Specimen Serum Performing Organization Address [facility] P pascale Number [facility] [place] [place] [address] PATHOLOGY AND GENOMIC MEDICINE [address] * Helder-Petit virus antibody test (05/03/2019 8:30 AM CDT) EBV Ab to viral Positive (A) Negative THERMAL capsid Ag, IgG [facility] EBV Ab to viral Negative Negative THERMAL capsid Ag, IgM [facility] EBV Ab to Positive (A) Negative THERMAL nuclear Ag, IgG [facility] EBV Ab to early Negative Negative THERMAL (D) Ag, IgG [facility] Helder-Petit SEE COMMENTComment: Infection THERMAL virus antibody Status: Results may suggest ISLAM interpretation past EBV infection. HOSPITAL Specimen Serum Performing Organization Address City/State/ZIP Code P pascale Number [facility] DEPARTMENT OF [address] [place] [address] PATHOLOGY AND GENOMIC MEDICINE [address] * TB T-SPOT (05/03/2019 8:30 AM [...] FOR USE WITH T=SPOT.TB TEST. Performed by: [facility] Molecular Tuberculosis Laboratory [facility] ([id number]) [place], [place] [address] Specimen Blood Performing Organization Address City/State/ZIP Code P pascale Number [facility] DEPARTMENT OF [address] [place] [address] PATHOLOGY AND GENOMIC MEDICINE [facility] * Single antigen beads (05/03/2019 8:30 AM CDT) [facility] interpretation information: ISLAM DP1=DPB1*01:01/DPA1*02:01 [facility] DP5=DPB1*05:01/DPA1*02:02 DQ9=DQB1*03:03/DQA1*02:01 LL58=SZE7*01:03 VI68=RGP9*01:01 DR51 is a self-antigen [facility] serum ID [id number] [facility] SAB serum 05/03/2019 08:30 AM THERMAL collection D&T [facility] SAB class I Negative THERMAL antibody [facility] SAB cPRA class 0 [facility] SAB class II DP1,DR10,DP5,DR53,DR51,DQ9 THERMAL antibody [facility] SAB cPRA class 74 [facility] Single antigen See link below for PDF Lab THERMAL beads [facility] Specimen Blood Performing Organization Address City/State/ZIP Code P pascale Number [facility] DEPARTMENT OF [address] [place] [address] PATHOLOGY AND GENOMIC MEDICINE [address] [address] [facility] * Miscellaneous referral test (05/03/2019 8:30 AM CDT) Only the most recent of 2 results within the time period is included. Misc test name PTNT LEMA SHOWN ABOVE Misc test SEE NOTE SHOWN ABOVE result Comment: Report Status: FINAL Prothrombin [id number] Mutation, B PTNT Interpretation This individual DOES NOT have the Prothrombin C20982G mutation. Although the Prothrombin [id number] mutation is absent, the individual may have other genetic and environmental risk factors for thrombosis. Consider genetic consultation and counseling of potentially affected family members regarding laboratory testing. ADDITIONAL INFORMATION This test is a direct mutation analysis using PCR amplification, signal generation and release by cleavage of sequence specific alleles ([employer], [place], [place], [place]). .............................. .............................. Prothrombin [id number] Mutation, B Negative Reference Value: Negative .............................. .............................. PTNT Reviewed By DARRYL Oneil - - - - - - - - - - - - - - - - - - - - - - - - - - - - - - Laboratory Notes: This test has been modified from the dynamometer mechanic's instructions. Its performance characteristics were determined by [facility] in a manner consistent with CLIA requirements. This test has not been cleared or approved by the U.S. Food and Drug Administration. + + : PERFORMING SITE LEGEND : + + : : [facility] : : : [address] [place] [address] : + + Specimen Narrative Performed At Prothrombin [id number] Mutation [facility] DEPARTMENT OF [facility] Test ID: PTNT PATHOLOGY AND Source: Whole Blood GENOMIC MEDICINE Performing Organization Address City/State/ZIP Code P pascale Number [facility] DEPARTMENT OF [address] [place] [address] PATHOLOGY AND GENOMIC MEDICINE SHOWN ABOVE * HSV type 1/2 combined Ab, IgM (05/03/2019 8:30 AM CDT) [facility] HSV 1/2 0.71 <=0.89 IV [facility] REF LAB combined Ab, Comment: IgM INTERPRETIVE [...] more than 12 months post-infection. Performed by [employer], [address] [place] [id number] [email or web address], Trung Boyer MD, Lab. Director Specimen Serum Performing Organization Address [facility] P pascale Number [facility] [address] [place], [place] [id number] [facility] REF LAB [address] [place] [address] * Homocystine, plasma (05/03/2019 8:30 AM CDT) [facility] Homocysteine 17.5 (H) 0.0 - 15.0 umol/L THERMAL Comment: ISLAM The risk for coronary vascular HOSPITAL disease increases progressively with homocysteine concentration. A 3.4 times greater risk is associated with a homocysteine concentration of greater than 15.8 umol/L as compared to a concentration below 14.1 umol/L. Specimen Plasma specimen Performing Organization Address City/[facility] P pascale Number [facility] DEPARTMENT OF [address] [place], [place] [id number] PATHOLOGY AND GENOMIC MEDICINE [address] * HLA autologous crossmatch (05/03/2019 8:30 AM CDT) [facility] source Peripheral Blood [facility] [id number] THERMAL serum ID [facility] serum 05/03/2019 08:30 AM THERMAL collection D&T [facility] flow XM T Negative [facility]AL cell result, [facility] B Negative THERMAL cell result, [facility] HLA autologous See link below for PDF Lab THERMAL crossmatch Report [facility] Specimen Blood Performing Organization Address City/[facility]/ZIP Code P pascale Number [facility] DEPARTMENT OF [address] [place] [address] PATHOLOGY [address] * Cytomegalovirus Ab, IgM (05/03/2019 8:30 AM CDT) Pathologist [facility] [place] Cytomegalovirus Negative Negative THERMAL Ab, IgM [facility] Specimen Serum Performing Organization Address City/[facility]/ZIP [facility] P pascale Number [facility] [place] [address] * ABORh - transplant (05/03/2019 8:30 AM CDT) Pathologist [facility] [place] ABO grouping O [facility] Rh type POS [facility] Specimen Blood Performing Organization Address City/[facility] P pascale Number [facility] [place] [address] * Functional protein S (05/03/2019 8:30 AM CDT) [facility] 91 74 - 160 % THERMAL protein S Comment: ISLAM Functional Protein S HOSPITAL performed. If result is decreased Total and Free Protein S Antigen will be performed. Specimen Blood Performing Organization Address City/[facility] P pascale Number [facility] [place] [place] [address] PATHOLOGY [address] * Functional protein C (05/03/2019 8:30 AM CDT) [facility] 56 (L) 70 - 165 % THERMAL protein C Comment: ISLAM Low Protein C Activity and HOSPITAL prolonged Prothrombin time consistent with vitamin K deficiency, warfarin therapy or liver disease. Recommend repeating Protein C when PT is normal. Reviewed by Huan Keita MD, PhD. Specimen Blood Performing Organization Address City/[facility]/ZIP Code P pascale Number [facility] [place] [place] [address] PATHOLOGY [address] [place] [address] HOSPITAL * Lupus anticoagulant panel (05/03/2019 8:30 AM CDT) Pathologist [facility] [place] Prothrombin 15.9 (H) 11.5 - 14.5 sec [facility] INR 1.3 THERMAL Comment: ISLAM The International Normalized HOSPITAL Ratio (INR) is a therapeutic monitoring tool for patients who are stable on oral anticoagulant therapy. An INR of 2.0-3.0 is suggested for deep vein thrombosis/pulmonary embolism. PTT 34.0 23.0 - 36.0 sec THERMAL Comment: ISLAM PTT therapeutic range for HOSPITAL unfractionated heparin is 61.0-112.0 seconds which corresponds to Anti-Xa 0.3-0.7 U/ml. PTT lupus 36.1 27.0 - 38.0 sec THERMAL anticoagulant Comment: ISLAM Lupus anticoagulant (LA) panel HOSPITAL consists of [...] diagnosis. DRVVT 45.4 29.0 - 46.0 sec THERMAL Comment: ISLAM This test has been modified HOSPITAL from the manufacturers instructions. The performance characteristics were determined by [facility] in a manner consistent with CLIA requirements. This test has not been cleared or approved by the U.S. Food and Drug Administration. Specimen Blood Performing Organization Address City/State/ZIP [place] [address] PATHOLOGY AND GENOMIC MEDICINE [address] * Cytomegalovirus Ab, IgG (05/03/2019 8:30 AM CDT) Pathologist [facility] [place] Cytomegalovirus Positive (A) Negative THERMAL Ab, IgG Comment: ISLAM Positive; IgG antibody to CMV HOSPITAL detected which may indicate exposure to CMV infection. Specimen Serum Performing Organization Address City/[facility]/ZIP Code P pascale Number [address] [address] [address] [facility] MEDICINE [address] * Fibrinogen (05/03/2019 8:30 AM CDT) Fibrinogen 627 (H) 200 - 450 mg/dL [facility] Specimen Blood Performing Organization Address City/[facility]/ZIP Code P pascale Number [facility] [place] [place] [address] [address] [facility] MEDICINE [address] * Antithrombin III level (05/03/2019 8:30 AM CDT) Antithrombin 81 80 - 130 % [facility] Specimen Blood Performing Organization Address City/[facility]/ZIP [facility] P pascale Number [facility] [place] [address] [facility] MEDICINE [address] * Triglycerides (05/03/2019 8:30 AM CDT) Triglycerides 103 <150 mg/dL [facility] Specimen Plasma specimen Performing Organization Address City/[facility] P pascale Number [facility] [place] [address] [facility] MEDICINE [address] * Phosphorus level (05/03/2019 8:30 AM CDT) Phosphorus 4.6 (H) 2.4 - 4.5 mg/dL [facility] Specimen Plasma specimen Performing Organization Address City/[facility]/ZIP [facility] P pascale Number [facility] DEPARTMENT OF [address] [place] [address] [facility] MEDICINE [address] * Parathyroid hormone (05/03/2019 8:30 AM CDT) PTH 507 (H) 15 - 65 pg/mL [facility] Specimen Blood Performing Organization Address City/[facility]/ZIP [facility] P pascale Number [facility] [place] [address] PATHOLOGY AND GENOMIC MEDICINE [address] * LDH (05/03/2019 8:30 AM CDT) LDH 235 (H) 87 - 225 U/L [facility] Specimen Plasma specimen Performing Organization Address City/[facility] P pascale Number [facility] [place] [address] PATHOLOGY AND GENOMIC MEDICINE [address] * Glucose level (05/03/2019 8:30 AM CDT) Glucose 146 (H) 65 - 99 mg/dL [facility] Specimen Plasma specimen Performing Organization Address City/[facility] P pascale Number [facility] [place] [address] PATHOLOGY AND GENOMIC MEDICINE [address] * Creatinine level (05/03/2019 8:30 AM CDT) Creatinine 4.40 (H) 0.70 - 1.20 mg/dL [facility] Specimen Plasma specimen Performing Organization Address [facility] P pascale Number [facility] [place] [address] PATHOLOGY AND GENOMIC MEDICINE [address] * Cholesterol (05/03/2019 8:30 AM CDT) Cholesterol 86 <200 mg/dL [facility] Specimen Plasma specimen Performing Organization Address City/[facility] P pascale Number [facility] DEPARTMENT OF [address] [place] [address] PATHOLOGY AND GENOMIC MEDICINE [address] * Amylase level (05/03/2019 8:30 AM CDT) Amylase 46 28 - 100 U/L [facility] Specimen Plasma specimen Performing Organization Address City/[facility] P pascale Number [facility] [place] [address] PATHOLOGY AND GENOMIC MEDICINE [address] * Nicotine and cotinine, serum (04/06/2019 8:00 AM PNEUMATIC HOIST OPERATOR) Nicotine <2.0 0.0 - 1.9 ng/mL [facility] Cotinine <2.0 0.0 - 1.9 ng/mL THERMAL Comment: ISLAM This test was developed and HOSPITAL its performance characteristics determined by the Department of Pathology and Genomic Medicine, [facility]. Serum nicotine and metabolite cotinine are tested by HPLC tandem mass spectrometry. It has not been cleared or approved by FDA. The laboratory is regulated under CLIA as qualified to perform high-complexity testing. This test is used for clinical purposes. It should not be regarded as investigational or for research. Specimen Blood Performing Organization Address City/State/ZIP Code P pascale Number [facility] DEPARTMENT [address] * Syphilis total antibody (04/06/2019 8:00 AM PNEUMATIC HOIST OPERATOR) Syphilis total Reactive (A) Non-reactive THERMAL antibody Comment: ISLAM Treponemal antibodies are HOSPITAL screened reactive. Non-treponemal antibody test, RPR will be followed. Specimen Blood Performing Organization Address City/[facility]/ZIP Code P pascale Number [address] * HIV Ag/Ab combination (04/06/2019 8:00 AM PNEUMATIC HOIST OPERATOR) HIV Ag/Ab Non-reactive Non-reactive [facility] Specimen Blood Performing Organization Address City/State/ZIP Code P pascale Number [address] * IA-2 antibody (04/06/2019 8:00 AM PNEUMATIC HOIST OPERATOR) IA-2 antibody see note [facility]F [facility] Comment: Islet Antigen-2 (IA-2) Autoantibody, Serum [facility] test code 1622450 IA-2, Autoantibody <5.4 U/mL (Ref Interval: 0.0-7.4) 999 INTERPRETIVE INFORMATION: Islet Antigen-2 (IA-2) Autoantibody, Serum A value greater than or equal to 7.5 Units/mL is considered positive for IA-2 autoantibodies. This assay is intended for the quantitative determination of autoantibodies to Islet Antigen-2 (IA-2) in human serum. Results should be interpreted within the context of clinical symptoms. Specimen Serum Performing Organization Address [facility] P pascale Number [facility] [address] [place] [address] [facility] REF LAB [address] [place] [address] * Hepatitis B surface Ab, quantitative (04/06/2019 8:00 AM PNEUMATIC HOIST OPERATOR) [facility] Hepatitis B <3.10 IU/L [facility] REF LAB surface Ab Comment: The anti-HBs [...] Cellular and Tissue-Based Products (HCT/P). Performed by [employer], [address] [place] [id number] [email or web address], Trung Boyer MD, Lab. Director Specimen Serum Performing Organization Address [facility] P pascale Number [facility] [address] [place] [address] [facility] REF LAB [address] [place] [address] * Hepatitis C antibody (04/06/2019 8:00 AM PNEUMATIC HOIST OPERATOR) [facility] Hepatitis C Ab Non-reactive Non-reactive [facility] Specimen Blood Performing Organization Address [facility] P pascale Number [facility] DEPARTMENT OF [address] [place] [address] PATHOLOGY AND GENOMIC MEDICINE [address] * Hepatitis A antibody IgM (04/06/2019 8:00 AM PNEUMATIC HOIST OPERATOR) Hepatitis A IgM Non-reactive Non-reactive [facility] Specimen Performing Organization Address City/State/ZIP Code P pascale Number [facility] [place] [place] [address] PATHOLOGY AND GENOMIC MEDICINE [address] * Hepatitis A antibody total (04/06/2019 8:00 AM PNEUMATIC HOIST OPERATOR) Hepatitis A Reactive (A) Non-reactive THERMAL total Ab Comment: ISLAM Hepatitis A Total Antibody HOSPITAL reactive. Hepatitis A IgM antibody will be performed and reported separately when completed. Specimen Blood Performing Organization Address City/[facility] [[email or web address]] [place] [address] PATHOLOGY AND GENOMIC MEDICINE [address] * Drug yuen 9, ser/lilian, scrn w/rflx to conf (04/06/2019 8:00 AM PNEUMATIC HOIST OPERATOR) Amphetamines, Negative Cutoff 30 ng/mL [facility] [...] use. Test developed and characteristics determined by [employer]. See Compliance Statement B: [employer]/ Performed by [employer] [address] [email or web address], Trung Boyer MD, Lab. Director Specimen Serum Performing Organization Address [facility] P pascale Number [id number] REF LAB [address] [place] [address] * Glutamic acid decarboxylase Ab (04/06/2019 8:00 AM PNEUMATIC HOIST OPERATOR) Pathologist [facility] [place] Glutamic acid <5.0 0.0 - 5.0 IU/mL [facility] B decarb Ab Comment: INTERPRETIVE INFORMATION: Glutamic Acid Decarboxylase Antibody A value greater than 5.0 IU/mL is considered positive for Glutamic Acid Decarboxylase Antibody (HERMELINDA Ab). This assay is intended for the semi-quantitative determination of the HERMELINDA Ab in human serum. Results should be interpreted within the context of clinical symptoms. Performed by [employer] [address] [email or web address], Trung Boyer MD, Lab. Director Specimen Serum Performing Organization Address [facility] P pascale Number [place] [phone] [facility] REF LAB [address] [place] [address] * Hepatitis B core antibody total (04/06/2019 8:00 AM PNEUMATIC HOIST OPERATOR) Pathologist [facility] [place] Hepatitis B Non-reactive Non-reactive STYLES core total Ab [facility] Specimen Blood Performing Organization Address City/State/ZIP Code P pascale Number [facility] [place] [address] [facility] MEDICINE [address] * Treponema pallidum Ab (04/06/2019 8:00 AM PNEUMATIC HOIST OPERATOR) Syphilis Non-reactiveComment: Non-reactive THERMAL treponemal Ab Treponemal antibody is not [facility] confirmed. HOSPITAL Specimen Performing Organization Address City/State/ZIP Code P pascale Number [facility] [place] [place] [address] PATHOLOGY [address] * ABO and Rh (04/06/2019 8:00 AM PNEUMATIC HOIST OPERATOR) Pathologist [facility] [place] ABO grouping O [facility] Rh type POS [facility] Specimen Blood Performing Organization Address City/State/ZIP Code P pascale Number [facility] [place] [place] [address] PATHOLOGY [address] * C-peptide (04/06/2019 8:00 AM PNEUMATIC HOIST OPERATOR) Pathologist [facility] [place] C-peptide 2.2 1.1 - 4.4 ng/mL [facility] Specimen Plasma specimen Performing Organization Address City/[facility] [[email or web address]] Code P pascale Number [facility] [place] [place] [address] [facility] MEDICINE [address] * Islet cell Ab, IgG (04/06/2019 8:00 AM PNEUMATIC HOIST OPERATOR) Pathologist [facility] [place] Islet cell Ab <1:4 <1:4 [facility] REF LAB Comment: INTERPRETIVE INFORMATION: Islet Cell Ab, IgG Islet cell antibodies (ICAs) are associated with type 1 diabetes (TID), an autoimmune endocrine disorder. ICAs may be present years before the onset of clinical symptoms. To calculate [employer] (JDF) units: multiply the titer x 5 (1:8 8 x 5 = 40 JDF Units). Test developed and characteristics determined by [employer]. See Compliance Statement A: [employer]/CS Performed by [employer], [address] [place] [address] [email or web address], Trung Boyer MD, Lab. Director Specimen Serum Performing Organization Address City/State/ZIP Code P pascale Number [facility] [address] [place] [address] [facility] [address] [place] [address] * RPR (04/06/2019 8:00 AM PNEUMATIC HOIST OPERATOR) RPR Non-reactive Non-reactive THERMAL Comment: ISLAM Results suggest no serological HOSPITAL evidence of active syphilis infection. Possible syphilis (early or latent) or previously treated syphilis cannot be ruled out. Confirmatory treponemal test, TP-PA will be performed. Specimen Performing Organization Address City/[facility]/ZIP Code P pascale Number [facility] DEPARTMENT OF [address] [place] [address] PATHOLOGY AND GENOMIC MEDICINE THERMAL [place]AM [address] [place] [address] HOSPITAL after 12/18/2018 Insurance Type Payer Benefit Subscriber ID Effective Phone Address Plan / Dates Group PPO BCBS BCBS OUT [id number] 2018-P OF STATE resent Advance Directives For more information, please contact: [phone] Patient Hunter Trapper Explanation Type Date Recorded Advance Directives, Living Will and Medical Power of Surgical Processor Advance Directives, 03/29/2019 11:41 AM Living Will and Medical Power of Surgical Processor
--- OUTSIDE RECORDS SUMMARY | 2019-12-29 17:04 | XMS REPORT | Continuity of Care Document ---
Author Author [facility] t Organization [facility] Address [address] [place] [address] Phone Unavailable Care Team Providers Care Frame Opener Name Role Phone MD ABHIJIT YODER MD PCP ABHIJIT YODER Attphys Unavailable Aliza FOSS, Arcelia Attphys Unavailable Dominique [facility] Att[facility] Reg LERNER M Melani Attphys Unavailable Ty FOSS, Bisi Attphys Unavailable Gaurav Vila Attphys Unavailable Ricardo POWER ORIGINATORBisi Hameed Attphys Unavailable Jason OLSON, Sonido Osorio Attphys Bill OLSON, Meghna Attphys Kirit OLSON, Srini Reeder Attphys Alex OLSON, Hola [place] Attphys YANETH WEAVER Attphys Unavailable Alexandre MARSH Attphys Unavailable Lorie Driver Attphys Unavailable CASTRO JALLOH Attphys Unavailable DELLA NG M.D. Attphys Unavailable ROSEY, P LUZ MARINA Attphys Unavailable MARK, S AMBICA Attphys Unavailable MANEEBRENDON, V ADRIEL Attphys Unavailable Yayo HILLS Attphys Unavailable ABHIJIT YODER Admphys Unavailable O'MANNING VARINDER Admphys Unavailable HAMPEL, CASTRO Admphys Unavailable Payers Payer Name Policy Type Policy Number Effective Date Expiration Date Christiano richardson BCBSBCBS OUT OF [id number] 2018 00:00:00 Alejandro Arias [employer] Ppo [id number] 2018 00:00:00 [facility] [employer] Ppo [id number] [facility] Problems Condition Name Condition Details [...] renal failure Problem Active 2015-08-09 00:00 :00 [facility] Dehydration Dehydration Problem Active 2015-08-09 00:00:00 [facility] Diarrhea Diarrhea Problem Active 2015-08-09 00:00:00 [facility] GI bleed GI bleed Problem Active 2015-08-09 00:00:00 [facility] Hyperglycemia Hyperglycemia Problem Active 2015-08-09 00:00:00 [facility] Sepsis Sepsis Problem Active 2015-04-15 00:00:00 [facility] Renal insufficiency Renal insufficiency Problem Active 2015-04-15 00:00 :00 [facility] Bacteremia Bacteremia Problem Active 2015-03-30 00:00:00 [facility] Prostatitis Prostatitis Problem Active 2015-03-30 00:00:00 [facility] Complicated urinary tract infection UTI (urinary tract infection ) Problem Active 2015-03-30 00:00:00 [facility] Pyelonephritis Pyelonephritis Problem Active 2015-02-10 00:00:00 [facility] History of left foot drop History of left foot drop Problem Active [facility] Arthralgia of right ankle Arthralgia of right ankle Problem Active [facility] Equinus contracture of right ankle Equinus contracture of right ankle Problem Active [facility] Fracture of right tibial plateau, closed , with routine healing, subsequent encounter Fracture of right tibial plateau, closed , with routine healing, subsequent encounter Problem Active [facility] Acute renal insufficiency Acute renal insufficiency Problem Active [facility] Bladder wall thickening Bladder wall thickening Problem Active [facility] Fever Fever Problem Active [facility] Hydroureteronephrosis Hydroureteronephrosis Problem Active [facility] Hypomagnesemia Hypomagnesemia Problem Active [facility] Indwelling Barcenas catheter present Indwelling catheter presen t on admission Problem Active [facility] Obstructive uropathy Obstructive uropathy Problem Active [facility] Displacement of ureteral stent Ureteral stent displacement Problem Activ e [facility] Vomiting Vomiting Problem Active [facility] Abdominal pain Abdominal pain Problem Active [facility] Constipation Constipation Problem Active [facility] Edema of extremities Edema extremities Problem Active [facility] End-stage renal disease on peritoneal dialysis Problem Active [facility] Allergies, Adverse Reactions, Alerts Allergy Name Allergy Type Status Severity Reaction(s) Onset Date Inacti ve Date Treating Clinician Comments Source Iodinated Contrast Media Allergy to substance Active 11-05-10 00:00:00 [facility] Dye Propensity to adverse reactions to drug Active 2016-03-17 00:00:00 CT contrast. IV dye. Excessive sneezing. Alejandro Arias CT CONTRAST DA Active MO 2015-10-12 00:00:00 [facility] PO CONTRAST Allergy to substance Active Mild 2007-07-06 00:00:00 [facility] Family History Family Member Diagnosis Comments Start Date Stop Date Source Maternal grandmother Hypertension [employer] Maternal grandmother Kidney disease Alejandro Arias Natural mother Diabetes [facility] Social History Social Habit Start Date [...] injection 2 13:14:56 2019-08-19 00:00:00 No 5U Q.[id number] In ject 5 Units under the skin 3 (three) times a day before meals. Ana Cristina Arias amoxicillin (AMOXIL) 500 MG capsule 2019-08-19 13:14:5 6 2019-08-19 00:00:00 No 500mg Q.[id number] Take 500 mg by [facility] 3 (three) times a day. Alejandro Arias calcium carbonate (TUMS) 200 mg calcium (500 mg) chewable ta blet 2019-08-19 13:14:52 Yes 1{tbl} Q.[id number] 3D Chew 1 tablet 3 (three) times daily after meals. Alejandro Arias gabapentin (NEURONTIN) 300 mg capsule 2019-08-19 13:14:52 Yes 300mg Q.[id number] Take 300 mg by mouth 3 (three) times a day. Alejandro Arias sodium bicarbonate 650 mg tablet 2019-08-19 13:14:52 Yes 1300mg Q.[id number] Take 1,300 mg by mouth 3 (three) times a day. Alejandro Arias NIFEdipine XL (PROCARDIA XL) 30 MG 24 hr tablet 2019-08-19 13:14 :52 Yes 30mg Q.5D Take 30 mg by mouth 2 (two) times a day. Alejandro Arias magnesium oxide (MAG-OX) 400 mg (241.3 mg magnesium) tablet 2019-08-19 13:14:52 Yes 800mg Q.[id number] 3D Take 800 mg by mouth 3 (three) times a day. Alejandro Arias ciprofloxacin (CIPRO) 500 MG tablet 2019-08-19 00:00:0 0 2019-09-18 23:59:00 No 500mg QD Take 1 tablet (500 mg total) by mouth da darci for 30 days. Alejandro Arias insulin lispro (HumaLOG) 100 unit/mL injection 2 00:00:00 2019-09-17 23:59:00 No 9U Q.[id number] In ject 9 Units under the skin 3 (three) times a day before meals for 30 days. Alejandro Arias doxycycline (VIBRAMYCIN) 100 MG capsule 00:00:00 2019-09-17 23:59:00 No 100mg Q.5D Take 1 capsule (100 mg total) by mouth 2 (two) times a day for 30 days. Alejandro Arias ergocalciferol (VITAMIN D2) 50,000 unit capsule 2019-08-15 11:27:2019-08-15 00:00:00 No [id number] Q7D Take 50,000 Units by mouth once a week. Alejandro Arias cholecalciferol, vitamin D3, (VITAMIN D3) 2,000 unit capsule capsule 2019-08-15 11:27:00 2019-08-15 00:00:00 No 2000U QD Take 2,000 Units by mouth daily. Alejandro Arias isoniazid (NYDRAZID) 300 MG tablet 2019-08-01 00:00:00 23:59:00 No 900mg Q7D Take 3 tablets [...] TAKE 1 CA PSULE 3 TIMES DAILY. [facility] ns Furosemide Furosemide 2018-06-27 13:06:00 2018-10-17 00:00:00 No 40 Daily [facility] Nifedipine (Nifedipine Er) 30 Mg TAB.ER.24 Nifedipine (Nifedipine Er) 30 Mg TAB.ER.24 2018-06-27 13:06:00 2018-10-17 00:00:00 No 60 Daily [facility] Amoxicillin Amoxicillin Yes 500 Three Times A Da y [facility] Fluconazole (Diflucan) 100 Mg TABLET Fluconazole (Diflucan) 100 Mg TABLET Yes 100 Daily [facility] Insulin Glargine (Lantus 3ML Pen) 100 Units/1 Ml INJ I nsulin Glargine (Lantus 3ML Pen) 100 Units/1 Ml INJ Yes Three Time s Daily With Meals [facility] Magnesium Oxide (Mag-Oxide) 400 Mg TABLET Magnesium Ox jaziel (Mag-Oxide) 400 Mg TABLET Yes 400 Three Times A Day [facility] Nifedipine (Nifedipine Er) 30 Mg TABLET.ER Nifedipine (Nifedipine Er) 30 Mg TABLET.ER Yes 30 Twice A Day [facility] Sodium Bicarbonate Sodium Bicarbonate Yes 1300 Th ree Times A Day [facility] Fluconazole (Diflucan) 100 Mg TABLET Fluconazole (Diflucan) 100 Mg TABLET 2019-06-22 00:00:00 No 100 Daily [facility] Furosemide (Lasix) 40 Mg TABLET Furosemide (Lasix) 40 Mg TABLET 2019-06-22 00:00:00 No 40 Daily as needed for Edema To Lo wer Extremities [facility] Gabapentin Gabapentin 2019-06-22 00:00:00 No 300 Thr ee Times A Day [facility] Insulin Aspart (Novolog) 100 Unit/1 Ml CARTRIDGE Insul in Aspart (Novolog) 100 Unit/1 Ml CARTRIDGE 2019-06-22 00:00:00 No 5 Befo re Meals [facility] Magnesium Oxide (Magox 400) 400 Mg TABLET Magnesium Ox jaziel (Magox 400) 400 Mg TABLET 2019-06-22 00:00:00 No 2 Three Times A Day [facility] Nifedipine (Nifedipine Er) 60 Mg TAB.ER.24 Nifedipine (Nifedipine Er) 60 Mg TAB.ER.24 2019-06-22 00:00:00 No 30 Twice A Day [facility] Sodium Bicarbonate Sodium Bicarbonate 2019-06-22 00:00:00 No 2 Three Times A Day [facility] Ergocalciferol (Vitamin D2) (Vitamin D2) 2,000 Unit TA BLET Ergocalciferol (Vitamin D2) (Vitamin D2) 2,000 Unit TABLET 2019-05-30 00:00:00 No 91097 Q Week [facility] Lactulose Lactulose 2019-02-11 00:00:00 No 30 Every 6 Hours as needed for Constipation [facility] Metoclopramide Hcl (Reglan) 10 Mg TABLET Metoclopramid e Hcl (Reglan) 10 Mg TABLET 2019-02-11 00:00:00 No 10 Before Meals And At Bedtime [facility] Veltamervina Veltomasa 2019-02-11 00:00:00 No 1 Daily [facility] Sennosides/Docusate Sodium (Senokot-S Tablet) 1 Each T ABLET Sennosides/Docusate Sodium (Senokot-S Tablet) 1 Each TABLET 2018-10-31 00:00:00 No [facility] Nifedipine (Nifedipine Er) 30 Mg TAB.ER.24 Nifedipine (Nifedipine Er) 30 Mg TAB.ER.24 2018-06-27 00:00:00 No Daily [facility] Vyzulta Vyzulta 2018-06-21 00:00:00 No .024 Daily [facility] Amlodipine Besylate Amlodipine Besylate 2018-05-05 00:00:00 No 10 Daily [facility] Metoprolol Tartrate Metoprolol Tartrate 2018-05-05 00:00:00 No 25 Twice A Day [facility] Ciprofloxacin Hcl (Cipro) 500 Mg TABLET Ciprofloxacin Hcl (C ipro) 500 Mg TABLET 2017-08-29 00:00:00 No 500 Daily [facility] Doxycycline Hyclate Doxycycline Hyclate 2017-08-29 00:00:00 No 100 Twice A Day [facility] Fluconazole Fluconazole 2017-08-29 00:00:00 No 200 D aily [facility] Insulin Detemir (Levemir) 100 Unit/1 Ml VIAL Insulin D etemir (Levemir) 100 Unit/1 Ml VIAL 2017-08-29 00:00:00 No 20 Bedtime [facility] Oxybutynin Chloride (Oxybutynin Chloride Er) 5 Mg TAB. ER.24 Oxybutynin Chloride (Oxybutynin Chloride Er) 5 Mg TAB.ER.24 2017-08-29 00:00:00 No 15 Daily [facility] Cephalexin Cephalexin 2016-06-04 00:00:00 No 500 Fou r Times Daily [facility] Hydrocodone Bit/Acetaminophen (Mcadoo 5-325 Tablet) 1 E ach TABLET Hydrocodone Bit/Acetaminophen (Mcadoo 5-325 Tablet) 1 Each TABLET 2016-06-04 00: 00:00 No 1 Every 6 Hours as needed for Pain [facility] Promethazine Hcl Promethazine Hcl 2016-06-04 00:00:00 No 25 Every 4 Hours [facility] Tramadol Hcl (Ultram) 50 Mg TABLET Tramadol Hcl (Ultram) 50 Mg T ABLET 2016-06-04 00:00:00 No Every 6 Hours as nee ded for Pain [facility] Fluticasone Propionate Fluticasone Propionate 2015-08-08 00:00:00 No 1 Twice A Day [facility] Meropenem (Merrem) 500 Mg INJ Meropenem (Merrem) 500 Mg INJ 2015-08-08 00:00:00 No 500 Every 8 Hours C [facility] Metoclopramide Hcl (Reglan) 10 Mg TABLET Metoclopramid e Hcl (Reglan) 10 Mg TABLET 2015-08-08 00:00:00 No 10 Before Meals And At Bedtime [facility] Pantoprazole Sodium (Protonix) 40 Mg TABLET. Pantopr azole Sodium (Protonix) 40 Mg TABLET. 2015-08-08 00:00:00 No 40 Every Morni ng [facility] Amoxicillin/Potassium Clav (Augmentin 500-125 Tablet) 1 Each TABLET Amoxicillin/Potassium Clav (Augmentin 500-125 Tablet) 1 Each TABLET 2015-04-11 00:00:00 No 500 Twice A Day [facility] Fluconazole (Diflucan) 100 Mg TABLET Fluconazole (Diflucan) 100 Mg TABLET 2015-04-11 00:00:00 No Daily [facility] Tamsulosin Hcl (Flomax*) 0.4 Mg CAP Tamsulosin Hcl (Flomax*) 0.4 Mg CAP 2015-03-30 00:00:00 No .4 Bedtime [facility] Acetaminophen With Codeine (Tylenol With Codeine #3 Ta blet) 1 Each TABLET Acetaminophen With Codeine (Tylenol With Codeine #3 Tablet) 1 Each TABLET 2015-03-08 00:00:00 No 300 Every 6 Hours as nee ded for Pain [facility] Senna Fruit/Conc/Doc Sod/Bisa (Senna-S Tablet) 1 Ea TA B Senna Fruit/Conc/Doc Sod/Bisa (Senna-S Tablet) 1 Ea TAB 2015-03-08 00:00:00 No 1 Bedtime [facility] Hydrocodone Bit/Acetaminophen (Mcadoo 5-325 Tablet) 1 E ach TABLET Hydrocodone Bit/Acetaminophen (Mcadoo 5-325 Tablet) 1 Each TABLET 2015-02-22 00: 00:00 No Daily [facility] Insulin Npl/Insulin Lispro (Humalog Mix 50-50 Kwikpen) 100 Unit/1 Ml INSULN.PEN Insulin Npl/Insulin Lispro (Humalog Mix 50-50 Kwikpen) 100 Unit/1 Ml INSULN.PEN 2015-02-22 00:00:00 No 15 Units Every A.m . [facility] Lisinopril Lisinopril 2015-02-22 00:00:00 No Ketty ly [facility] Amoxicillin/Potassium Clav (Augmentin 875-125 Tablet) 1 Each TABLET Amoxicillin/Potassium Clav (Augmentin 875-125 Tablet) 1 Each TABLET 2015-02-11 00:00:00 No Twice A Day [facility] Cephalexin Monohydrate (Keflex) 500 Mg CAPSULE Cephale leonela Monohydrate (Keflex) 500 Mg CAPSULE 2015-02-11 00:00:00 No 500 Three Cm es A Day [facility] Docusate Sodium (Colace) 100 Mg CAP Docusate Sodium (Colace) 100 Mg CAP 2015-02-11 00:00:00 No Daily [facility] Insulin Glargine,Hum.rec.anlog (Lantus) 100 Unit/1 Ml CARTRIDGE Insulin Glargine,Hum.rec.anlog (Lantus) 100 Unit/1 Ml CARTRIDGE 2014 00:00:00 No 45 Units At Bedtime [facility] Metformin Hcl Metformin Hcl 2015-02-11 00:00:00 No 500 Twice Daily [facility] Vital Signs Vital Name Observation Time Observation Value Comments Source Systolic blood pressure 2019-08-19 10:13:08 137 mm[Hg] [facility] Diastolic blood pressure 2019-08-19 10:13:08 84 mm[Hg] [facility] Heart rate 2019-08-19 10:13:08 61 /min [facility] Body temperature 2019-08-19 10:13:08 36.5 Ashley [employer] Respiratory rate 2019-08-19 10:13:08 16 /min [employer] Oxygen saturation in Arterial blood by Pulse oximetry 08-18 10:13:08 98 /min [facility] Body height 2019-08-17 12:23:58 180.3 cm [facility] Body weight 2019-08-14 21:10:00 95.255 kg [facility] BMI 2019-08-14 21:10:00 29.29 kg/m2 [facility] Body Temperature 2019-08-10 11:13:00 98.9 [degF] [facility] BMI (Body Mass Index) 2019-08-05 13:40:00 29.3 kg/m2 [facility] Weight 2019-08-04 20:39:00 210 [lb_av] [facility] Body Temperature 2019-06-22 20:30:00 97.4 [degF] [facility] BMI (Body Mass Index) 2019-06-12 17:12:00 29.3 kg/m2 [facility] Weight 2019-06-12 11:09:00 210 [lb_av] [facility] Procedures Procedure Date / Time Performed Performing Clinician Sourc e POC GLUCOSE 2019-08-19 12:21:00 Varinder Bethodist POC GLUCOSE 2019-08-19 07:18:00 Kirit Varinder Nicole ethodist URINE CULTURE 2019-08-18 22:47:00 Castro Jalloh Maryam Allen Quynh odist POC GLUCOSE 2019-08-18 21:27:00 Kirit Varinder Nicole ethodist URINALYSIS SCREEN AND MICROSCOPY, WITH REFLEX TO CULTURE 202 21:05:00 Castro Jalloh Maryam Allen [employer] POC GLUCOSE 2019-08-18 19:02:00 Kirit Varinder Nicole [...] ethodist POC GLUCOSE 2019-08-17 07:51:00 Varinder Beth Srini Nicole ethodist POC GLUCOSE 2019-08-16 22:54:00 Kirit Varinder Nicole ethodist POC GLUCOSE 2019-08-16 16:53:00 OMakayla Varinder Nicole ethodist POC GLUCOSE 2019-08-16 11:38:00 OMakayla Varinder NicoleHéctor Alejandro Nicole ethodist POC GLUCOSE 2019-08-16 07:47:00 Kiirt Varinder Nicole ethodist HEPATITIS B SURFACE ANTIGEN [...] Phel Adriel mcgraw CRYSTAL ANALYSIS 2019-08-14 18:30:00 Adriel Joyner Met hodist ANAEROBIC CULTURE 2019-08-14 18:28:00 Adriel Joyner Me thodist URINE CULTURE 2019-08-14 18:28:00 BillMeghna Allen Meth odist FUNGUS CULTURE 2019-08-14 18:28:00 YaniraMeghna cortez Meth odist AFB CULTURE 2019-08-14 18:28:00 BillMeghna Allen Meth odist FUNGUS SMEAR 2019-08-14 18:28:00 YaniraMeghna cortez Meth odist AFB STAIN 2019-08-14 18:28:00 YaniraMeghna cortez Meth odist AEROBIC CULTURE 2019-08-14 18:03:00 BillMeghna Meth odist GRAM STAIN 2019-08-14 18:03:00 EaMeghna james URINALYSIS SCREEN AND MICROSCOPY, WITH REFLEX TO CULTURE 17:45:00 Adriel Joyner BLOOD CULTURE, AEROBIC & ANAEROBIC 2019-08-14 16:45:00 Varinder Beth BLOOD CULTURE, AEROBIC & ANAEROBIC 2019-08-14 16:15:00 Joyner, Luther Arisa HC COMPLETE BLD COUNT W/AUTO DIFF 2019-08-14 16:15:00 Joyner, Pallavi Arias PROTHROMBIN TIME WITH INR 2019-08-14 16:15:00 JoynerAdriel PARTIAL THROMBOPLASTIN TIME (PTT) 2019-08-14 16:15:00 Joyner, Pallavi Arias SEDIMENTATION RATE 2019-08-14 16:15:00 JoynerAdriel tsai ethodist C-REACTIVE PROTEIN 2019-08-14 16:15:00 Adriel Joyner ethodist COMPREHENSIVE METABOLIC PANEL 2019-08-14 16:15:00 JoynerAdriel ESTIMATED GFR 2019-08-14 16:15:00 Meghna Khan XR KNEE 4+ VW RIGHT 2019-08-14 14:34:[address] of abdomen and pelvis without contrast 2019-08-04 00:00:00 [facility] CARDIOLIPIN ANTIBODIES 2019-08-01 12:17:00 Yaneth Weaver X-ray of chest, two views 2019-06-16 00:00:00 [facility] RESECTION OF RIGHT KIDNEY, OPEN APPROACH 2019-06-13 00:00:00 [facility] PERFORMANCE OF URINARY FILTRATION, <6 HRS/DAY 2019-06-12 00:00:0 0 [facility] Ultrasound guidance for vascular access 2019-06-02 00:00:00 FAIZA ENGEL [facility] INSERT OF TUNNEL VAD INTO CHEST SUBCU/FASCIA, OPEN APPROACH 2019-06-02 00:00:00 [facility] REMOVAL OF TUNNEL VAD FROM TRUNK SUBCU/FASCIA, OPEN AP PROACH 2019-06-02 00:00:00 [facility] INSERTION OF INFUSION DEV INTO SUP VENA CAVA, PERC APPROACH 2019-06-02 00:00:00 [facility] ULTRASONOGRAPHY OF SUPERIOR VENA CAVA, GUIDANCE 2019-06-02 00:00 :[address] [facility] [address] of abdomen and pelvis without contrast 2019-05-30 00:00:00 [facility] Ultrasound guidance for vascular access 2019-05-16 00:00:00 FAIZA ENGEL [facility] INSERT OF TUNNEL VAD INTO CHEST SUBCU/FASCIA, PERC APPROACH 2019-05-16 00:00:00 [facility] INSERTION OF INFUSION DEVICE INTO R [facility], PERC APPROACH 05-15 00:00:00 [facility] ULTRASONOGRAPHY OF SUPERIOR VENA CAVA, GUIDANCE 2019-05-16 00:00 :00 [facility] INSERT OF INFUSION DEV INTO PERITON CAV, PERC ENDO APPROACH 2019-05-12 00:00:00 [facility] IRRIGATION OF PERITON CAV USING DIALYSATE, PERC APPROACH 2019-04 00:00:00 [facility] REMOVAL OF INTRALUMINAL DEVICE FROM URETER, ENDO 2019-05-10 00:0 0:00 [facility] DILATION OF RIGHT URETER WITH INTRALUMINAL DEVICE, ENDO 00:00:00 [facility] CHANGE DRAINAGE DEVICE IN BLADDER, EXTERNAL APPROACH 2019-05-10 00:00:00 [facility] X-ray of chest, two views 2019-05-06 00:00:00 JC CATES [facility] XR CHEST 2 VW 2019-05-03 09:35:[address] ABDOMEN PELVIS WO CONTRAST 2019-05-03 09:28:50 Claudio Weaver CHOLESTEROL 2019-05-03 08:30:00 Yaneth Weaver TRIGLYCERIDES 2019-05-03 08:30:00 Yaneth Weaver GLUCOSE LEVEL 2019-05-03 08:30:00 Weaver, Yaneth Cunninghamist CREATININE LEVEL 2019-05-03 08:30:00 Weaver, Yaneth [facility] [employer] PHOSPHORUS LEVEL 2019-05-03 08:30:00 Weaver, Yaneth [employer] LDH 2019-05-03 08:30:00 Weaver, Yaneth Cunninghamist CYTOMEGALOVIRUS [...] DEVICE FROM KIDNEY, EXTERNAL APPROACH 2018-02 00:00:00 [facility] DRAINAGE OF RIGHT KIDNEY WITH DRAINAGE DEVICE, PERC AP PROACH 2019-02-15 00:00:00 [facility] DILATION OF RIGHT URETER WITH INTRALUMINAL DEVICE, ENDO 00:00:00 [facility] DILATION OF LEFT URETER, ENDO 2019-02-15 00:00:00 [facility] FLUOROSCOPY OF KIDNEY, URETER & BLADDER USING L [facility] NTRAST 2019-02-15 00:00:00 [facility] CHANGE DRAINAGE DEVICE IN BLADDER, EXTERNAL APPROACH 2019-02-15 00:00:00 [facility] Echo guide for biopsy 2019-02-15 00:00:00 [facility] RESECTION OF PREPUCE, EXTERNAL APPROACH 2018-11-05 00:00:00 [facility] CHANGE DRAINAGE DEVICE IN BLADDER, EXTERNAL APPROACH 2018-11-05 00:00:00 [facility] DILATION OF BILATERAL URETERS, ENDO 2018-11-05 00:00:00 [facility] FLUOROSCOPY OF KIDNEY, URETER & BLADDER USING L [facility] NTRAST 2018-11-05 00:00:00 [facility] EXCISION OF LOWER ESOPHAGUS, ENDO, DIAGN 2018-11-01 00:00:00 [facility] EXCISION OF STOMACH, PYLORUS, ENDO, DIAGN 2018-11-01 00:00:[address] [facility] [address] of abdomen and pelvis without contrast 2018-10-31 00:00:[address] [facility] [address] of abdomen and pelvis without contrast 2018-10-18 00:00:00 [facility] Plan of Care Planned Activity Planned Date Details Comments Source Future Scheduled Test 2019-09-24 00:00:00 INFLUENZA VACCINE [code = INFLUENZA VACCINE] [facility] Future Scheduled Test 1990 00:00:00 DIABETES: RETINAL EYE EXAM [code = DIABETES: RETINAL EYE EXAM] [facility] Scheduled Test 1990 00:00:00 DIABETIC FOOT EXAM [code = DIABETIC FOOT EXAM] [facility] Instructions Heart Healthy Diet [facility] Instructions Infection Control [facility] Instructions Urinary Tract Infection - Men [facility] Encounters Start Date/Time End Date/Time Encounter Type Admission Type Attendi [facility] Care Department Encounter ID Source 2019-08-14 00:00:00 2019-08-19 00:00:00 Inpatient JAYLIN BETH [facility] [id number] [facility] 2019-08-04 23:31:00 2019-08-10 12:40:00 Discharged Inpatient 1 YODERABHIJIT [facility] [id number] [facility] 2019-08-01 00:00:00 2019-08-01 00:00:[address] [facility] [id number] [facility] 2019-08-01 00:00:00 2019-08-01 00:00:00 Outpatient MERCY PRESSLEY [facility] [id number] [facility] 2019-06-12 11:12:00 2019-06-22 20:38:00 Discharged Inpatient 1 GABINO [facility] [id number] [facility] 2019-06-09 03:55:2019-06-09 06:51:00 Departed Emergency Room 1 [facility] [id number] [facility] 2019-05-30 02:39:00 2019-06-03 17:47:00 Discharged Inpatient 1 [facility]IT [facility]ODER [facility] [id number] [facility] - Patients [facility] 2019-05-06 21:01:00 2019-05-21 14:22:00 Discharged Inpatient 1 ABHIJIT YODER [facility] [id number] [facility] 2019-05-03 00:00:00 2019-05-03 00:00:00 Outpatient ROSALINA [address] [facility] [id number] [facility] 2019-05-03 00:00:00 2019-05-03 00:00:[address] [facility] [id number] [facility] 2019-05-03 00:00:00 2019-05-03 00:00:[address] [facility] [id number] [facility] 2019-03-20 22:29:00 2019-03-21 03:04:00 Departed Emergency Room [facility] [id number] [facility] 2019-02-15 09:15:00 2019-02-20 13:07:00 Discharged In[facility] 3 [facility] [id number] [facility] 2019-01-14 13:07:00 2019-01-14 13:07:00 Registered Clinic [facility] [id number] [facility] 2018-12-10 08:30:00 2018-12-10 08:30:00 Appointment; NELSON GN M.D. MELTON, DANIELLE, M.D. UTP [facility] [id number] [facility] 2018-11-11 07:14:2018-11-11 12:00:00 Departed Emergency Room 1 LUZ MARINA CURRIE [facility] [id number] [facility] 2018-10-31 03:34:00 2018-11-08 11:44:00 Discharged Inpatient 1 BEV FLORES [facility] [id number] [facility] 2018-10-17 02:37:00 2018-10-29 10:57:00 Discharged Inpatient 1 ABHIJIT YODER [facility] [id number] [facility] 2018-06-20 18:21:00 2018-06-27 15:47:00 Discharged Inpatient [facility] [id number] [facility] 2018-06-11 09:00:00 2018-06-11 09:00:00 Appointment; NELSON NG M.D. MELTON, DANIELLE, M.D. [facility] UTP [id number] [facility] 2018-05-04 01:45:00 2018-05-07 17:46:00 Discharged Inpatient 1 ADRIEL HADDAD [facility] [id number] [facility] 2018-02-12 12:00:00 2018-02-12 12:00:00 Appointment; NELSON NG M.D. MELTON, DANIELLE, M.D. [facility] UTP [id number] [facility] 2018-01-06 15:15:00 2018-01-06 15:15:00 Appointment; NELSON NG M.D. MELTON, DANIELLE, M.D. [facility] UTP [id number] [facility] 2017-12-11 11:30:00 2017-12-11 11:30:00 Appointment; NELSON NG M.D. MELTON, DANIELLE, M.D. [facility] UTP [id number] [facility] 2017-11-13 11:45:00 2017-11-13 11:45:00 Appointment; NELSON NG M.D. MELTON, DANIELLE, M.D. [facility] UTP [id number] [facility] 2017-08-29 05:19:00 2017-09-01 12:03:00 Discharged Inpatient 1 MARIELLE MARSH [facility] [id number] [facility] 2017-08-07 11:00:00 2017-08-07 11:00:00 Appointment; NELSON NG M.D. MELTON, DANIELLE, M.D. [facility] UTP [id number] [facility] 2017-08-07 08:30:00 2017-08-07 08:30:00 Appointment; NELSON NG M.D. MELTON, DANIELLE, M.D. [facility] UTP [id number] [facility] 2017-06-02 13:15:00 2017-06-02 13:15:00 Appointment; NELSON NG M.D. MELTON, DANIELLE, M.D. [facility] UTP [id number] [facility] 2017-05-08 11:15:00 2017-05-08 11:15:00 Appointment; NELSON NG M.D. MELTON, DANIELLE, M.D. [facility] UTP [id number] [facility] 2017-02-25 10:00:00 2017-02-25 10:00:00 Appointment; NELSON NG M.D. MELTON, DANIELLE, M.D. [facility] UTP [id number] [facility] 2017-01-25 02:48:00 2017-01-30 17:07:00 Discharged Inpatient ER REINIER MARGAUX [facility] [id number] [facility] 2017-01-07 14:15:00 2017-01-07 14:15:00 Appointment; NELSON NG M.D. MELTON, DANIELLE, M.D. [facility] UTP [id number] [facility] Results Test Description Test Time Test Comments Results Result Comments Source CT ABDOMEN/PELVIS WO 2019-12-20 00:18:[address] [facility] : 1980 Sex: M [facility] [address] [address] Patient Name: MANJIT LUO MR #: [id number] : 1980 Age/Sex: 39/M Req #: [id number] [facility] Physician: ABHIJIT YODER MD Ordered by: JONATHAN YODER DO Report #: [id number] Location: MED/SURG2 Room/Bed: [facility] Procedure: [id number] CT/CT ABDOMEN/PELVIS WO Exam Date: 12/19/19 Exam Time: 2339 REPORT STATUS: Signed EXAM: CT Abdomen and Pelvis WITHOUT contrast INDICATION: L flank pain [id number] COMPARISON: None. TECHNIQUE: Abdomen and pelvis were scanned utilizing a multidetector helical scanner from the lung base to the pubic symphysis without administration of IV contrast. Absence of intravenous contrast decreases sensitivity for detection of focal lesions and vascular pathology. Coronal and sagittal reformations were obtained. Routine protocol was performed. IV CONTRAST: None ORAL CONTRAST: None COMPLICATIONS: None FINDINGS: LINES and TUBES: None. LOWER THORAX: New moderate right pleural effusion. HEPATOBILIARY: No focal hepatic lesions. No biliary ductal dilation. GALLBLADDER: There are cholecystectomy clips. SPLEEN: No splenomegaly. PANCREAS: Stable duct dilatation. Scattered calcifications suggest chronic pancreatitis. ADRENALS: No adrenal nodules KIDNEYS/URETERS: Right nephrectomy. No left hydronephrosis. GI TRACT: No abnormal distention, wall thickening, or evidence of bowel obstruction. Appendix is normal. PELVIC ORGANS/BLADDER: Suprapubic urinary bladder catheter. Mild stranding of the fat surrounding the urinary bladder. LYMPH NODES: Unchanged mildly enlarged iliac chain and inguinal lymph nodes. VESSELS: Unremarkable. PERITONEUM / RETROPERITONEUM: Dialysis catheter coiled in the dependent right hemiabdomen pelvis. Small volume free fluid. Trace intraperitoneal free air under the left hemidiaphragm. BONES: Findings of renal osteodystrophy. Bilateral pars defects at L5. IMPRESSION: Lack of IV contrast limits evaluation of the solid organs and vasculature. 1. Trace intraperitoneal free air under the left hemidiaphragm. Given lack of additional evidence of intra-abdominal pathology, this may be due to recent instrumentation such as catheter placement, adjustment, or use. 2. Mild fat stranding about the decompressed urinary bladder with wall thickening. Correlate with urinalysis. 3. New moderate right pleural effusion. Small volume peritoneal ascites. Signed by: Abhijit Galarza MD on 12/20/2019 1:01 AM Dictated By: ABHIJIT GALARZA MD 0 Transcribed By: TIFFANY on 12/20/19100 COPY TO: JONATHAN YODER DO [facility] SINGLE (PORTABLE) 2019-12-12 01:03:00 [facility] 1980 Sex: M [address] [place] [address] Patient Name: MANJIT LUO MR #: [id number] : 1980 Age/Sex: 39/M Req #: [id number] Adm Physician: ABHIJIT YODER MD Ordered by: MARIELLE MARSH MD Report #: [id number] Location: MED/SURG Room/Bed: [facility] Procedure: [id number] DX/CHEST SINGLE (PORTABLE) Exam Date: 12/12/19 Exam Time: 32 REPORT STATUS: Signed EXAMINATION: CHEST SINGLE (PORTABLE) [...] 1:07 AM Dictated By: DONA WESLEY MD 6 Transcribed By: TIFFANY on 12/12/19106 COPY TO: MARIELLE MARSH MD AFB culture 2019-09-26 12:13:10 Test Item AFB culture isolate (test code = 543-9) No growth after 6 we eks of incubation. Specimen InformationSpecimen Source: Specimen Site: [facility]iel Luisngus axtrknt5164-55-14 12:15:05* Test Item Value Reference Range Interpretation Comments Fungus culture isolate (test code = 1441) No growth af ter 4 weeks of incubation. Specimen Information Specimen Source: Specimen Site: [facility] Allen MethodistECG 12 hqeo4307-95-10 14:50:41* Test Item Value Reference Range Interpretation Comments Ventricular rate (test code = 253) 99 Atrial rate (test code = 255) 99 DE interval (test code = 266) 106 QRSD interval (test code = 260) 92 QT interval (test code = 264) 370 QTC interval (test code = 265) 474 P axis 1 (test code = 267) 26 QRS axis 1 (test code = 268) 1 T wave axis (test code = 270) 75 EKG impression (test code = 273) Sinus rhythm with lina rt DE-Cannot rule out Inferior infarct , age undetermined-Abnormal ECG-In automated comparison with ECG of 08-APR-2017 16:07,-DE interval has decreased-Questionable change in QRS axis-ST no longer elevated in Inferior leads-T wave amplitude has decreased in Inferior leads-Nonspecific T wave abnormality now evident in Lateral leads-QT has lengthened- Moore MethodistAnaerobic gjyqnyp6181-05-99 12:59:54* Test Item Value Reference Range Interpretation Comments Anaerobic culture isolate (test code = 552) No anaerobic organis ms isolated. Specimen InformationSpecimen Source: Spe c[facility] anktp9535-48-50 12:59:54* Test Item Value Reference Range Interpretation Comments AFB stain (test code = 676-7) No acid fast bacilli (AFB) seen. Specimen InformationSpecimen Source: Specimen Site: [facility] MethodistFungus fihoe0076-33-03 12:59:54* Test Item Value Reference Range Interpretation Comments Fungus smear (test code = 1443) No fungi observed. Specimen InformationSpecimen Source: Specimen Site: [facility] MethodistGram fosmg6542-11-80 12:59:54Gram stain isolateMany WBC'sNo organisms seen Comment: Specimen InformationSpecimen Source: Specimen Site: [facility] MethodistAerobic snfoafk0204-85-07 12:59:54 Aerobic culture isolateNo growth after 3 days.No growth after 4 days. Comment: Christiano isbell InformationSpecimen Source: Specimen Site: [facility] ALMoore MethodistBlood culture, aerobic & mtevrkmnh0490-18-29 08:03:04* Test Item Value Reference Range Interpretation Comments Blood culture isolate (test code = 600-7) No growth after 5 days of incubation. Specimen InformationSpecimen Source: BloodSpecimen Site: Unspecified Moore BuddhismUrine xvhbqwt7438-11-99 07:25:34* Test Item Value Reference Range Interpretation Comments Urine culture isolate (test code = 50890-3) No growth after 24 hour s Specimen InformationSpecimen Source: UrineSpecimen Site: Catheterized [facility] ryomezj6721-29-63 12:22:21* Test Item Value Reference Range Interpretation Comments POC glucose (test code = 20698-7) 145 mg/dL 65-99 H Family Development Extension Specialist Name: Cheng Anna ID: [id number]: COUNTS INCLUDE 234 BEDS AT THE [facility] Notified rivet tester Interpretation (test code = 24916-6) Abnormal Moore MethodistUrinalysis screen and microscopy, with reflex to culture 2019-08-18 22:55:10* Test Item Value Reference Range Interpretation Comments Specimen site (test code = 7152266) Catheterized Color, UA (test code = 5778-6) Straw Appearance, UA (test code = 5767-9) Hazy Specific gravity, UA (test code = 5811-5) 1.012 1.001-1.035 pH, UA (test code = 5803-2) 5.0 5.0-8.5 Protein, UA (test code = 39065-9) 1+ Negative A Glucose, UA (test code = 27863-1) 2+ Negative A Ketones, UA (test code = 2514-8) Negative Negative Bilirubin, UA (test code = 5770-3) Negative Negative Blood, UA (test code = 5794-3) Moderate Negative A Nitrite, UA (test code = 5802-4) Negative Negative Urobilinogen, UA (test code = 24269-3) <2.0 <2.0 Leukocyte esterase, UA (test code = 5799-2) Small Negative A WBC, UA (test code = 5821-4) 25 0- 1 /HPF H RBC, UA (test code = 78384-6) 4 0- 5 /HPF Bacteria, UA (test code = 23441-8) Few None seen Yeast, UA (test code = 76689-9) None seen Yeast with pseudohyphae, UA (test code = 51521-2) None seen Lab Interpretation (test code = 58879-5) Abnormal Moore MethodistCOVID-19 qualitative [id number] 12:12:15* Test Item Value Reference Range Interpretation Comments Interpretation (test code = 3402601) Negative results do not preclude 2019-nCoV infection and should not be used as the sole basis for treatment or other patient management decisions. Negative results must be combined with clinical observations, patient history, and epidemiological information. COVID-19 qualitative PCR result (test code = 85600-1) Not-Detect ed Not-Detected COVID-19 qualitative PCR (test code = 7070) See link below for P DF Lab Report Moore MethodistHepatitis B surface jemmtcf7096-41-94 08:10:47* Test Item Value Reference Range Interpretation Comments Hepatitis B surface Ag (test code = 5195-3) Non-reactive Non-reacti ve [facility] HospitalistBasic metabolic fcmhl6824-84-63 10:17:32* Test Item Value Reference Range Interpretation Comments Sodium (test code = 2951-2) 139 135- 148 mEq/L Potassium (test code = 2823-3) 4.4 3.5- 5.0 mEq/L Chloride (test code = 2075-0) 101 98- 112 mEq/L CO2 (test code = 8-9) 23 24- 31 mEq/L L Anion gap (test code = 96263-5) 15@ANIO 7- 15 mEq/L BUN (test code = 3094-0) 36 mg/dL 6-20 H Creatinine (test code = 2160-0) 5.25 mg/dL 0.7-1.2 H Glucose (test code = 2345-7) 146 mg/dL 65-99 H Calcium (test code = 59481-6) 8.2 mg/dL 8.3-10.2 L Lab Interpretation (test code = 59604-7) Abnormal Moore MethodistEstimated [id number] 10:17:32* Test Item Value Reference Range Interpretation Comments Estimated GFR (test code = 5488) 13 mL/min/1.73 m2 A Catergory Units InterpretationG1 >=90 Normal or highG2 60-89 Mildly znrgxcwicJ2m 45-59 Mildly to moderately amewqpfzxT7s 30-44 Moderately to severely decreasedG4 15-29 Severely decreasedG5 <15 Kidney failureThe eGFR was calculated using the Chronic Kidney Disease Epidemiology Collaboration (CKD-EPI) equation. Interpretation is based on recommendations of the National Kidney Foundation-Kidney Disease Outcomes Quality Initiative (NKF-KDOQI) published in 2014. Lab Interpretation (test code = 48256-9) Abnormal Moore MethodistHemoglobin R4p8846-87-91 09:05:15* Test Item Value Reference Range Interpretation Comments Hemoglobin A1C (test code = 58099-8) 6.5 % 4-5.6 H HbA1c cutoffs for diagnosing diabetes:4.0% - 5.6% = normal5.7% - 6.4% = increased risk for diabetes (prediabetes)9>=6.5% = trpnudby6Rnxza for glycemic control (ADA 2016)< 7.0% Target for non adults with diabetes. More or less stringent targets may be appropriate for individual patients. <7.5% Target for Children and adolescents with type 1 diabetes. Lab Interpretation (test code = 03222-3) Abnormal Moore MethodistCBC with platelet and dhkaskhhgohg9106-93-90 07:41:09* Test Item Value Reference Range Interpretation Comments WBC (test code = 38088-8) 3.73 4.50- 11.00 k/uL L RBC (test code = 20536-2) 4.16 m/uL 4.4-6 L HGB (test code = 718-7) 10.1 g/dL 14-18 L HCT (test code = 4544-3) 34.5 % 41-51 L MCV (test code = 787-2) 82.9 fL 82-100 MCH (test code = 785-6) 24.3 pg 27-34 L MCHC (test code = 786-4) 29.3 g/dL 31-37 L RDW - SD (test code = 89970-9) 42.0 fL 37-55 MPV (test code = 19302-5) 8.5 fL 8.8-13.2 L Platelet count (test code = 09082-4) 190 150- 400 k/uL Nucleated RBC (test code = 86056-6) 0.00 /100 WBC Neutrophils (test code = 14185-6) 56.8 % 39-69 Lymphocytes (test code = 24965-5) 30.3 % 25-45 Monocytes (test code = 97392-1) 7.5 % 0-10 Eosinophils (test code = 59527-9) 3.5 % 0-5 Basophils (test code = 12967-6) 0.3 % 0-1 Immature granulocytes (test code = 30135-1) 1.6 % 0-1 H "Immature granulocytes" (promyelocytes, myelocytes, metamyelocytes) Lab Interpretation (test code = 48686-9) Abnormal Moore MethodistCell count and differential, body hubap0176-91-63 21:07:29* Test Item Value Reference Range Interpretation Comments Misc fluid type (test code = 51781-6) Synovial Color, fluid (test code = 6824-7) Red Appearance, fluid (test code = 9335-1) Hazy RBC, fluid (test code = 31186-5) 01603 /CMM Nucleated cells, fluid (test code = 66194-6) 86927 /CMM Fluid mononuclear cell (test code = 1407) See Diff Neutrophils, fluid (test code = 82972-4) 89 % Lymphocytes, fluid (test code = 07633-7) 2 % Macrophages, fluid (test code = 40940-9) 9 % Allen MethodistCrystal sruloild1423-39-04 19:50:35* Test Item Value Reference Range Interpretation Comments Crystal analysis specimen type (test code = 1160) Knee Right knee joint aspirate Monosodium urate (test code = 2727118) None seen None seen CPPD crystals (test code = 1135) None seen None seen Moore MethodistSedimentation coet8111-74-14 17:40:51* Test Item Value Reference Range Interpretation Comments Sedimentation rate (test code = 19635-9) 87 0- 10 mm/hr H Lab Interpretation (test code = 05100-0) Abnormal Moore MethodistC-reactive tzpkiar7961-04-03 17:13:47* Test Item Value Reference Range Interpretation Comments CRP (test code = 1988-5) 5.40 mg/dL 0-0.5 H Lab Interpretation (test code = 11973-0) Abnormal Moore MethodistComprehensive metabolic puijf3399-08-18 17:13:46* Test Item Value Reference Range Interpretation Comments Sodium (test code = 2951-2) 138 135- 148 mEq/L Potassium (test code = 2823-3) 4.2 3.5- 5.0 mEq/L Chloride (test code = 5-0) 102 98- 112 mEq/L CO2 (test code = 2027-9) 24 24- 31 mEq/L Anion gap (test code = 57214-5) 12@ANIO 7- 15 mEq/L BUN (test code = 3094-0) 35 mg/dL 6-20 H Creatinine (test code = 2160-0) 5.44 mg/dL 0.7-1.2 H Glucose (test code = 2345-7) 233 mg/dL 65-99 H Calcium (test code = 99466-4) 8.1 mg/dL 8.3-10.2 L Protein (test code = 2885-2) 7.3 g/dL 6.3-8.3 - 4.6- 7.0 g/dL1 week 4.4-7.6 g/dL7 months-1year 5.1-7.3 g/dL1-2 years 5.6-7.5 g/dL>3 years 6.0-8.0 g/lM40-705 6.3-8.3 g/dL Albumin (test code = 1751-7) 1.9 g/dL 3.5-5 L A/G ratio (test code = 1759-0) 0.4 0.7-3.8 L Alkaline phosphatase (test code = 6768-6) 216 U/L 40-129 H AST (test code = 1920-8) 14 U/L 10-50 ALT (test code = 1742-6) 13 U/L 5-50 Total bilirubin (test code = 1974-2) <0.2 0-1.2 Lab Interpretation (test code = 27122-7) Abnormal Moore MethodistPartial thromboplastin time, dxdxeltrw1221-26-28 16:44:57* Test Item Value Reference Range Interpretation Comments PTT (test code = 19032-9) 35.3 23.0- 36.0 sec PTT therapeutic range for unfractionated heparin is61.0-112.0 seconds which corresponds to Anti-Xa0.3-0.7 U/ml. Moore MethodistProthrombin time with JTW9992-32-03 16:41:55* Test Item Value Reference Range Interpretation Comments Prothrombin time (test code = 5902-2) 16.0 11.5- 14.5 sec H INR (test code = 01806-5) 1.3 Th e International Normalized Ratio (INR) is a therapeutic monitoring tool for patients who are stable on oral anticoagulant therapy. An INR of 2.0-3.0 is suggested for deep vein thrombosis/pulmonary embolism. Lab Interpretation (test code = 20809-5) Abnormal Moore MethodistXR Knee 4+ Vw Piilx7307-54-73 14:44:09Hm Interface, Radiology Results 08/14/2019 2:47 PM CDTEXAMINATION: XR KNEE 4 [...] patellar component appear intact . No loosening noted.[facility] MethodistCapillary blood glucose measurement by glucometer (mass/volume)2019-08-10 10:38:00* Test Item Value Reference Range Interpretation Comments Bedside Glucose (test code = 75324-8) 170 70-120 Meter ID: [id number] [facility]RL[facility]20[facility]-56 16:27:00 [facility] [address] [address] Patient Name: MANJIT LUO MR #: [id number] : 1980 Age/Sex: 39/M Req #: [id number] Adm Physician: ABHIJIT YODER MD Ordered by: FAIZA DOWNEY Report #: [id number] Location: MED/SURG3 [place] [facility] [place] Procedure: [id number] DX/IR CONS ULT Exam Date: Exam Time: [...] SIR_TunneledCathet erRemoval_v3 Attestation Signer name: Jose F eFrrer MD I attest that I wa s present for the entire procedure. I reviewed the stored images and agree wit h the report as written. Signed by: Jose F Ferrer MD on 08/09/2019 4:29 PM Dictated By: JOSE F FERRER MD 28 COPY TO: LORE DOWNEY REMOVAL TUNNEDLED CV RNZB8529-79-77 16:27:00 [facility] [address] [address] Patient Name: MANJIT LUO MR #: [id number] : 1980 Age/Sex: 39/M Req #: [id number] Adm Physician: ABHIJIT YODER MD Ordered by: FAIZA DOWNEY Report #: [id number] [facility] Room/Bed: [facility] [place] [place] Procedure: IR/REMOVAL TUNNEDLED CV CATH Exam Date: [...] COPY TO: FAIZA DOWNEY KNEE RIGHT THREE AKSBA1923-62-11 14:06:00 [address] [place] [address] Patient Name: MANJIT LUO MR #: [id number] : 1980 Age/Sex: 39/M Req #: [id number] Adm Physician: ABHIJIT YODER MD Ordered by: ABHIJIT YODER MD Report #: [id number] Location: MED/SURG3 Room/Bed: [facility] [place] [place] Procedure: [id number] DX/KNEE RIGHT TH REE VIEWS Exam Date: [...] 140 Tra nscribed By: TIFFANY on 08/09/19 1409 COPY TO: ABHIJIT YODER MD Serum or plasma sodium measurement (moles/volume)2019-08-09 05:45:00* Test Item Value Reference Range Interpretation Comments Sodium Level (test code = 2951-2) 136 136-145 [facility] plasma potassium measurement (moles/volume)2019-08-09 05:45:00* Test Item Value Reference Range Interpretation Comments Potassium Level (test code = 2823-3) 4.1 3.5-5.1 [facility] Hospitaler[facility] or plasma chloride measurement (moles/volume)2019-08-09 05:45:00* Test Item Value Reference Range Interpretation Comments Chloride Level (test code = 2075-0) 100 98-107 [facility] Hospitalerum or plasma carbon dioxide, total measurement (moles/volume)2019-08-09 05:45:00* Test Item Value Reference Range Interpretation Comments Carbon Dioxide Level (test code = 2028-9) 25 22-29 [facility] Hospitalerum or plasma anion soi4260-86-75 05:45:00* Test Item Value Reference Range Interpretation Comments Anion Gap (test code = 78331-7) 15.1 8-16 [facility] Hospitalerum or plasma urea nitrogen measurement (mass/volume)2019-08-09 05:45:00* Test Item Value Reference Range Interpretation Comments Blood Urea Nitrogen (test code = 3094-0) 37 7-26 [facility] Hospitalerum or plasma creatinine measurement (mass/volume)2019-08-09 05:45:00* Test Item Value Reference Range Interpretation Comments Creatinine (test code = 2160-0) 6.05 0.72-1.25 [facility] Hospitalerum or plasma urea nitrogen/creatinine mass xbxgs8300-99-89 05:45:00* Test Item Value Reference Range Interpretation Comments BUN/Creatinine Ratio (test code = 3097-3) 6 6-25 [facility] CenterEstimated glomerular filtration rate (GFR) vfclpqbzzbola1684-65-53 05:45:00* Test Item Value Reference Range Interpretation Comments Estimat Glomerular Filtration Rate (test code = 335478761) 10 >60 Ranges were taken from the National Kidney Disease Education Program and the [facility] literature.Reference ranges:60 or greater: Uklrdp87-56 ( for 3 consecutive months): Chronic kidney disease 15 or less: Kidney failureCovenant Medical CenterGlucose roffrazsend7478-32-63 05:45:00* Test Item Value Reference Range Interpretation Comments Glucose Level (test code = MLP0500) 115 74-118 [facility] Hospitalerum or plasma calcium measurement (mass/volume)2019-08-09 05:45:00* Test Item Value Reference Range Interpretation Comments Calcium Level (test code = 69977-9) 7.4 8.4-10.2 [facility] CenterPhosphorus obonlafnvoz9236-10-10 05:45:00 * Test Item Value Reference Range Interpretation Comments Phosphorus Level (test code = ZNJ6583) 5.2 2.3-4.7 [facility] Hospitalerum or plasma albumin measurement (mass/volume)2019-08-09 05:45:00* Test Item Value Reference Range Interpretation Comments Albumin (test code = 1751-7) 1.7 3.5-5.0 [facility] Hospitalerum or plasma intact pararthyroid hormone measurement (mass/volume)2019-08-09 05:45:00* Test Item Value Reference Range Interpretation Comments Parathyroid Hormone (test code = 2731-8) 198 15-65 [facility] Hospitalerum or plasma calcium measurement (mass/volume)2019-08-09 05:45:00* Test Item Value Reference Range Interpretation Comments Calcium (Send out) (test code = 85115-0) 7.0 8.7-10.2 [facility] CenterFluoroscopic procedure less than one hour soeervox3804-84-25 05:45:00* Test Item Value Reference Range Interpretation Comments Parathyroid Hormone Interpretation (test code = Parathyroid Hormone Interpretation) Comment . Interpretation Intact PTH Calcium (pg/mL) (mg/dL)Normal 15 - 65 8.6 - 10.2Pr imary Hyperparathyroidism >65 >10.2Secondary Hyperparathyroidism >65 <10.2Non-Parathyroid Hypercalcemia <65 >10.2Hypoparathyroidism <15 < 8.6Non- Parathyroid Hypocalcemia 15 - 65 < 8.6Performed at: [facility] [address] [id number] Director: Doc Bartlett MD, Phone: [phone] at: [employer] [address] [id number] Director: Raul Bolivar MD, Phone: [phone] Medical CenterBacterial urine epdkxhj9690-60-01 09:57:00* Test Item Value Reference Range Interpretation Comments Urine Culture (test code = 630-4) ENTEROCOCCUS FAECALIS [facility] CenterBlood leukocytes automated count (number/volume)2019-08-08 05:30:00* Test Item Value Reference Range Interpretation Comments White Blood Count (test code = 6690-2) 4.79 4.8-10.8 [facility] CenterBlood erythrocytes automated count (number/volume)2019-08-08 05:30:00* Test Item Value Reference Range Interpretation Comments Red Blood Count (test code = 789-8) 3.83 4.3-5.7 [facility] CenterBlood hemoglobin measurement (moles/volume)2019-08-08 05:30:00* Test Item Value Reference Range Interpretation Comments Hemoglobin (test code = 32136-7) 9.8 14.0-18.0 [facility] CenterAutomated blood hematocrit (volume fraction)2019-08-08 05:30:00* Test Item Value Reference Range Interpretation Comments Hematocrit (test code = 4544-3) 30.8 38.2-49.6 [facility] CenterAutomated erythrocyte mean corpuscular aqpskp2044-05-26 05:30:00* Test Item Value Reference Range Interpretation Comments Mean Corpuscular Volume (test code = 787-2) 80.4 81-99 [facility] CenterAutomated erythrocyte mean corpuscular hemoglobin (mass per erythrocyte)2019-08-08 05:30:00* Test Item Value Reference Range Interpretation Comments Mean Corpuscular Hemoglobin (test code = 785-6) 25.6 28-32 [facility] CenterAutomated erythrocyte mean corpuscular hemoglobin concentration measurement (mass/volume)2019-08-08 05:30:00* Test Item Value Reference Range Interpretation Comments Mean Corpuscular Hemoglobin Concent (test code = 786-4) 31.8 31-35 [facility] CenterRDW OkjGc-Iqe6677-37-15 05:30:00* Test Item Value Reference Range Interpretation Comments Red Cell Distribution Width (test code = 40914-4) 15.1 11.7 -14.4 [facility] CenterAutomated blood platelet count (count/volume)2019-08-08 05:30:00* Test Item Value Reference Range Interpretation Comments Platelet Count (test code = 777-3) 143 140-360 [facility] CenterAutomated blood segmented neutrophil count as percentage of total xsdbvclhcp9651-20-14 05:30:00* Test Item Value Reference Range Interpretation Comments Neutrophils (%) (Auto) (test code = 47754-0) 58.9 38.7-80.0 [facility] CenterAutomated blood lymphocyte count as percentage ot total syvruvpojn8612-63-93 05:30:00* Test Item Value Reference Range Interpretation Comments Lymphocytes (%) (Auto) (test code = 736-9) 25.5 18.0-39.1 [facility] CenterAutomated blood monocyte count as percentage of total jngpcrrkjn5099-54-20 05:30:00* Test Item Value Reference Range Interpretation Comments Monocytes (%) (Auto) (test code = 5905-5) 11.9 4.4-11.3 [facility] CenterAutomated blood eosinophil count as percentage of total kuxpolsaws3301-67-34 05:30:00* Test Item Value Reference Range Interpretation Comments Eosinophils (%) (Auto) (test code = 713-8) 2.7 0.0-6.0 [facility] CenterAutomated blood basophil count as percentage of total kngvwfbpfc9675-08-82 05:30:00* Test Item Value Reference Range Interpretation Comments Basophils (%) (Auto) (test code = 706-2) 0.6 0.0-1.0 [facility] CenterFluoroscopic procedure less than one hour wflyznzi5406-41-23 05:30:00* Test Item Value Reference Range Interpretation Comments IM GRANULOCYTES % (test code = IM GRANULOCYTES %) 0.4 0.0- 1.0 [facility] CenterAutomated blood neutrophil count 2019-08-08 05:30:00* Test Item Value Reference Range Interpretation Comments Neutrophils # (Auto) (test code = 751-8) 2.8 2.1-6.9 [facility] CenterBlood lymphocytes count (number/volume) 2019-08-08 05:30:00* Test Item Value Reference Range Interpretation Comments Lymphocytes # (Auto) (test code = 90300-4) 1.2 1.0-3.2 [facility] CenterBlood monocytes automated count (number/volume)2019-08-08 05:30:00* Test Item Value Reference Range Interpretation Comments Monocytes # (Auto) (test code = 742-7) 0.6 0.2-0.8 [facility] CenterAutomated blood eosinophil count 2019-08-08 05:30:00* Test Item Value Reference Range Interpretation Comments Eosinophils # (Auto) (test code = 711-2) 0.1 0.0-0.4 [facility] CenterAutomated blood basophil count (count/volume)2019-08-08 05:30:00* Test Item Value Reference Range Interpretation Comments Basophils # (Auto) (test code = 704-7) 0.0 0.0-0.1 [facility] CenterFluoroscopic procedure less than one hour pocgayts8723-21-55 05:30:00* Test Item Value Reference Range Interpretation Comments Absolute Immature Granulocyte (auto (shin t code = Absolute Immature Granulocyte (auto) 0.02 0-0.1 [facility] CenterProthrombin time (PT) in platelet poor plasma by coagulation tuqhp5532-28-18 09:05:00* Test Item Value Reference Range Interpretation Comments Prothrombin Time (test code = 5902-2) 15.8 11.9-14.5 [facility] CenterINR in Platelet poor plasma by Coagulation hzepk2653-49-82 09:05:00* Test Item Value Reference Range Interpretation Comments Prothromb Time International Ratio (test code = 6301-6) 1.18 Oral Anticoagulant Therapy INR Values:1. Low Intensity Therapy 1.5 - 2.02 . Moderate Intensity Therapy 2.0 - 3.03. High Intensity Therapy(1) 2.5 - 3. 54. High Intensity Therapy(2) 3.0 - 4.05. Panic Value INR > 5.0 [facility] CenterActivated partial thromboplastin time (aPTT) in platelet poor plasma by coagulation giern0169-84-95 09:05:00* Test Item Value Reference Range Interpretation Comments Activated Partial Thromboplast Time (test code = 31657-0) 39.3 23.8-35.5 [facility] Hospitalerum or plasma total bilirubin measurement (mass/volume)2019-08-05 09:05:00* Test Item Value Reference Range Interpretation Comments Total Bilirubin (test code = 1975-2) 0.4 0.2-1.2 [facility] CenterFluoroscopic procedure less than one hour idjwcybf5856-43-32 09:05:00* Test Item Value Reference Range Interpretation Comments Aspartate Amino Transf (AST/SGOT) (test code = Aspartate Amino Transf (AST/SGOT)) 18 5-34 [facility] Hospitalerum or plasma alanine aminotransferase measurement (enzymatic activity/volume)2019-08-05 09:05:00* Test Item Value Reference Range Interpretation Comments Alanine Aminotransferase (ALT/SGPT) (test code = 1742-6) 14 0-55 [facility] Hospitalerum or plasma protein measurement (mass/volume)2019-08-05 09:05:00* Test Item Value Reference Range Interpretation Comments Total Protein (test code = 2885-2) 6.7 6.5-8.1 [facility] CenterPlasma globulin measurement (mass/volume) 2019-08-05 09:05:00* Test Item Value Reference Range Interpretation Comments Globulin (test code = 53522-5) 4.5 2.3-3.5 [facility] Hospitalerum or plasma albumin/globulin mass qlsvd8013-25-35 09:05:00* Test Item Value Reference Range Interpretation Comments Albumin/Globulin Ratio (test code = 1759-0) 0.5 0.8-2.0 [facility] Hospitalerum or plasma alkaline phosphatase measurement (enzymatic activity/volume)2019-08-05 09:05:00* Test Item Value Reference Range Interpretation Comments Alkaline Phosphatase (test code = 6768-6) 186 40-150 [facility] Hospitalerum or plasma creatine kinase measurement (enzymatic activity/volume)2019-08-05 09:05:00* Test Item Value Reference Range Interpretation Comments Creatine Kinase (test code = 2157-6) 64 30-200 [facility] Hospitalerum or plasma creatine kinase MB measurement (mass/volume)2019-08-05 09:05:00* Test Item Value Reference Range Interpretation Comments Creatine Kinase MB (test code = 14204-4) 1.20 0-5.0 [facility] CenterTroponin I measurement by highly sensitive enzyme ewmlfqumlqx0503-23-28 09:05:00* Test Item Value Reference Range Interpretation Comments Troponin I (test code = 84694-9) 0.034 0-0.300 [facility] CenterBlood wsusnui0951-91-78 23:15:00* Test Item Value Reference Range Interpretation Comments Blood Culture (test code = 97627560) NO GROWTH AFTER 5 DAYS, FINAL REPORT [facility] SINGLE (PORTABLE)2019-08-04 23:03:00 [facility] [address] [address] Patient Name: MANJIT LUO MR #: [id number] : 1980 Age/Sex: 39/M Req #: [id number] Adm Physician: Ordered by: MARIELLE MARSH MD Report #: [id number] Location: ER Room/Bed: Procedure: [id number] DX/[facility] SINGLE (PORTABLE) Exam Date: 08/04/19 Exam Time: [...] COPY TO: MARIELLE PERSON MD CT ABDOMEN/PELVIS [id number] 22:15:[address] [address] Patient Name: MANJIT LUO MR #: [id number] : 1980 Age/Sex: 39/M Req #: [id number] Adm Physician: Ordered by: MARIELLE MARSH MD Report #: [id number] Location: ER Room/Bed: Procedure: [id number] CT/CT ABDOMEN/PELVIS WO Exam Date: 08/04/19 Exam [...] (RPC). FINDINGS: LINES and TUBES: Supra pubic Barceans catheter. Dialysis catheter with tip coiled in [...] Color (test code = 5778-6) YELLOW YELLOW [facility] cjlqtrl5812-39-79 22:13:00* Test Item Value Reference Range Interpretation Comments Urine Clarity (test code = 51367-3) SL CLOUDY CLEAR [facility] Hospitalpecific gravity of Urine by Test strip 2019-08-04 22:13:00* Test Item Value Reference Range Interpretation Comments Urine Specific Hertel (test code = 5811-5) 1.020 1.010-1.02 5 [facility] CenterUrine pH measurement by automated test ixixe1921-01-52 22:13:00* Test Item Value Reference Range Interpretation Comments Urine pH (test code = 51940-6) 5.5 5-7 [facility] CenterUrine leukocyte esterase detection by ihjxkrna6295-13-80 22:13:00* Test Item Value Reference Range Interpretation Comments Urine Leukocyte Esterase (test code = 5799-2) SMALL NEGATIVE [facility] CenterUrine nitrite xndtpsedh7333-36-00 22:13:00* Test Item Value Reference Range Interpretation Comments Urine Nitrite (test code = 28392-1) NEGATIVE NEGATIVE [facility] CenterUrine protein measurement by test strip (mass/volume)2019-08-04 22:13:00* Test Item Value Reference Range Interpretation Comments Urine Protein (test code = 5804-0) >=300 NEGATIVE [facility] CenterUrine glucose jtylkdqsw8927-28-89 22:13:00* Test Item Value Reference Range Interpretation Comments Urine Glucose (UA) (test code = 2349-9) 1+ NEGATIVE [facility] CenterUrine ketones detection by automated test xjvad7974-84-49 22:13:00* Test Item Value Reference Range Interpretation Comments Urine Ketones (test code = 31240-8) NEGATIVE NEGATIVE [facility] CenterUrine urobilinogen measurement by test strip (mass/volume)2019-08-04 22:13:00* Test Item Value Reference Range Interpretation Comments Urine Urobilinogen (test code = 39702-1) 0.2 0.2-1 [facility] CenterUrine total bilirubin measurement (mass/volume)2019-08-04 22:13:00* Test Item Value Reference Range Interpretation Comments Urine Bilirubin (test code = 1978-6) NEGATIVE NEGATIVE [facility] CenterUrine erythrocytes xkymoezml6118-39-74 22:13:00* Test Item Value Reference Range Interpretation Comments Urine Blood (test code = 49824-1) MODERATE NEGATIVE [facility] CenterAutomated urine sediment leukocyte count by microscopy (number/high power field)2019-08-04 22:13:00* Test Item Value Reference Range Interpretation Comments Urine WBC (test code = 5821-4) >50 0-5 [facility] CenterErythrocytes detection in urine sediment by light hgrjezrban9766-88-00 22:13:00* Test Item Value Reference Range Interpretation Comments Urine RBC (test code = 00044-9) >50 0-5 [facility] CenterBacteria detection in urine sediment by light rsrevoikhs3228-58-41 22:13:00* Test Item Value Reference Range Interpretation Comments Urine Bacteria (test code = 71366-3) MANY NONE [facility] CenterEpithelial cells detection in urine sediment by light hmwctjlwmp6951-99-84 22:13:00* Test Item Value Reference Range Interpretation Comments Urine Epithelial Cells (test code = 32829-8) MANY NONE [facility] CenterBacterial urine vmytksk8103-04-99 22:13:00* Test Item Value Reference Range Interpretation Comments Urine Culture (test code = 630-4) ENTEROCOCCUS FAECALIS [facility] CenterFluoroscopic procedure less than one hour abvdfjqj1881-77-90 21:23:00* Test Item Value Reference Range Interpretation Comments Lactic Acid Level (test code = Lactic Acid Level) 1.8 0.5- 2.0 [facility] CenterFluoroscopic procedure less than one hour lwmvytkf1506-98-52 00:10:00* Test Item Value Reference Range Interpretation [...] complexity tests.Testing performed by [facility] [address] [place], [place] [id number] Director: Alonzo Rhodes M.D.JESSA # [id number] Medical Center Capillary blood glucose measurement by glucometer (mass/volume)2019-06-22 19:22:00* Test Item Value Reference Range Interpretation Comments Bedside Glucose (test code = 58803-8) 328 70-120 Meter ID: [id number] Health Arlington Memorial Hospitalerum or plasma sodium measurement (moles/volume)2019-06-22 05:05:00* Test Item Value Reference Range Interpretation Comments Sodium Level (test code = 2951-2) 135 136-145 [facility] CenterVenous blood ionized calcium measurement (mass/volume)2019-06-22 05:05:00* Test Item Value Reference Range Interpretation Comments Ionized Calcium (test code = 97272-8) 1.1 1.09-1.30 [facility] Hospitalerum or plasma potassium measurement (moles/volume)2019-06-22 05:05:00* Test Item Value Reference Range Interpretation Comments Potassium Level (test code = 2823-3) 4.5 3.5-5.1 [facility] Hospitalerum or plasma chloride measurement (moles/volume)2019-06-22 05:05:00* Test Item Value Reference Range Interpretation Comments Chloride Level (test code = 2075-0) 100 98-107 [facility] Hospitalerum or plasma carbon dioxide, total measurement (moles/volume)2019-06-22 05:05:00* Test Item Value Reference Range Interpretation Comments Carbon Dioxide Level (test code = 2028-9) 30 22-29 [facility] Hospitalerum or plasma anion ani3325-99-15 05:05:00* Test Item Value Reference Range Interpretation Comments Anion Gap (test code = 30389-0) 9.5 8-16 [facility] Hospitalerum or plasma urea nitrogen measurement (mass/volume)2019-06-22 05:05:00* Test Item Value Reference Range Interpretation Comments Blood Urea Nitrogen (test code = 3094-0) 34 7-26 [facility] Hospitalerum or plasma creatinine measurement (mass/volume)2019-06-22 05:05:00* Test Item Value Reference Range Interpretation Comments Creatinine (test code = 2160-0) 4.42 0.72-1.25 [facility] Hospitalerum or plasma urea nitrogen/creatinine mass ntebe7972-56-85 05:05:00* Test Item Value Reference Range Interpretation Comments BUN/Creatinine Ratio (test code = 3097-3) 8 6-25 [facility] CenterEstimated glomerular filtration rate (GFR) yoibtyfwvnola1740-87-58 05:05:00* Test Item Value Reference Range Interpretation Comments Estimat Glomerular Filtration Rate (test code = 077892390) 15 >60 Ranges were taken from the National Kidney Disease Education Program and the [facility] Kidney Foundation literature.Reference ranges:60 or greater: Vqouot94-35 ( for 3 consecutive months): Chronic kidney disease 15 or less: Kidney failureCovenant Medical CenterGlucose vxhslsxuxqk7959-07-61 05:05:00* Test Item Value Reference Range Interpretation Comments Glucose Level (test code = HNL9856) 271 74-118 [facility] Hospitalerum or plasma calcium measurement (mass/volume)2019-06-22 05:05:00* Test Item Value Reference Range Interpretation Comments Calcium Level (test code = 81044-5) 7.7 8.4-10.2 [facility] Hospitalerum or plasma albumin measurement (mass/volume)2019-06-22 05:05:00* Test Item Value Reference Range Interpretation Comments Albumin (test code = 1751-7) 1.6 3.5-5.0 [facility] CenterVenous blood ionized calcium measurement (mass/volume)2019-06-22 05:05:00* Test Item Value Reference Range Interpretation Comments Ionized Calcium (test code = 75566-2) 1.1 1.09-1.30 [facility] CenterBlood leukocytes automated count (number/volume)2019-06-20 05:10:00* Test Item Value Reference Range Interpretation Comments White Blood Count (test code = 6690-2) 3.29 4.8-10.8 [facility] CenterBlood erythrocytes automated count (number/volume)2019-06-20 05:10:00* Test Item Value Reference Range Interpretation Comments Red Blood Count (test code = 789-8) 3.57 4.3-5.7 [facility] CenterBlood hemoglobin measurement (moles/volume)2019-06-20 05:10:00* Test Item Value Reference Range Interpretation Comments Hemoglobin (test code = 98541-2) 9.0 14.0-18.0 [facility] CenterAutomated blood hematocrit (volume fraction)2019-06-20 05:10:00* Test Item Value Reference Range Interpretation Comments Hematocrit (test code = 4544-3) 29.1 38.2-49.6 [facility] CenterAutomated erythrocyte mean corpuscular oincvi0175-63-86 05:10:00* Test Item Value Reference Range Interpretation Comments Mean Corpuscular Volume (test code = 787-2) 81.5 81-99 [facility] CenterAutomated erythrocyte mean corpuscular hemoglobin (mass per erythrocyte)2019-06-20 05:10:00* Test Item Value Reference Range Interpretation Comments Mean Corpuscular Hemoglobin (test code = 785-6) 25.2 28-32 [facility] CenterAutomated erythrocyte mean corpuscular hemoglobin concentration measurement (mass/volume)2019-06-20 05:10:00* Test Item Value Reference Range Interpretation Comments Mean Corpuscular Hemoglobin Concent (test code = 786-4) 30.9 31-35 [facility] CenterRDW UxpYt-Vof4853-85-27 05:10:00* Test Item Value Reference Range Interpretation Comments Red Cell Distribution Width (test code = 83462-1) 14.9 11.7 -14.4 [facility] CenterAutomated blood platelet count (count/volume)2019-06-20 05:10:00* Test Item Value Reference Range Interpretation Comments Platelet Count (test code = 777-3) 133 140-360 [facility] CenterAutblue ridge regional hospitaled blood segmented neutrophil count as percentage of total ykarhptngy9681-38-07 05:10:00* Test Item Value Reference Range Interpretation Comments Neutrophils (%) (Auto) (test code = 15249-6) 48.9 38.7-80.0 [facility] CenterAutomated blood lymphocyte count as percentage ot total hskuipaxgg4925-47-70 05:10:00* Test Item Value Reference Range Interpretation Comments Lymphocytes (%) (Auto) (test code = 736-9) 31.0 18.0-39.1 [facility] CenterAutomated blood monocyte count as percentage of total mmxrkhfzfe9668-88-24 05:10:00* Test Item Value Reference Range Interpretation Comments Monocytes (%) (Auto) (test code = 5905-5) 11.9 4.4-11.3 [facility] CenterAutomated blood eosinophil count as percentage of total qchdoabpkk8941-49-97 05:10:00* Test Item Value Reference Range Interpretation Comments Eosinophils (%) (Auto) (test code = 713-8) 7.3 0.0-6.0 [facility] CenterAutomated blood basophil count as percentage of total ufbwomtfhv1297-05-06 05:10:00* Test Item Value Reference Range Interpretation Comments Basophils (%) (Auto) (test code = 706-2) 0.3 0.0-1.0 [facility] CenterFluoroscopic procedure less than one hour cuvutmmc4088-21-17 05:10:00* Test Item Value Reference Range Interpretation Comments IM GRANULOCYTES % (test code = IM GRANULOCYTES %) 0.6 0.0- 1.0 [facility] CenterAutomated blood neutrophil count 2019-06-20 05:10:00* Test Item Value Reference Range Interpretation Comments Neutrophils # (Auto) (test code = 751-8) 1.6 2.1-6.9 [facility] CenterBlood lymphocytes count (number/volume) 2019-06-20 05:10:00* Test Item Value Reference Range Interpretation Comments Lymphocytes # (Auto) (test code = 80203-8) 1.0 1.0-3.2 [facility] CenterBlood monocytes automated count (number/volume)2019-06-20 05:10:00* Test Item Value Reference Range Interpretation Comments Monocytes # (Auto) (test code = 742-7) 0.4 0.2-0.8 [facility] CenterAutomated blood eosinophil count 2019-06-20 05:10:00* Test Item Value Reference Range Interpretation Comments Eosinophils # (Auto) (test code = 711-2) 0.2 0.0-0.4 [facility] CenterAutomated blood basophil count (count/volume)2019-06-20 05:10:00* Test Item Value Reference Range Interpretation Comments Basophils # (Auto) (test code = 704-7) 0.0 0.0-0.1 [facility] CenterFluoroscopic procedure less than one hour ocuzjodb0541-03-89 05:10:00* Test Item Value Reference Range Interpretation Comments Absolute Immature Granulocyte (auto (shin t code = Absolute Immature Granulocyte (auto) 0.02 0-0.1 [facility] CenterCHEST 2 BZMNR3074-63-66 10:46:00 [facility] [address] [place] [address] Patient Name: MANJIT LUO MR #: [id number] : 1980 Age/Sex: 38/M Req #: [id number] Adm Physician: ABHIJIT YODER MD Ordered by: CASTRO JALLOH MD Report #: [id number] Location: MED/SURG Room/Bed: [facility] Procedure: [id number] DX/CH EST 2 VIEWS Exam Date: Exam [...] 047 COPY TO: CASTRO JALLOH MD Blood mwbfaya9977-22-13 09:50:00* Test Item Value Reference Range Interpretation Comments Blood Culture (test code = 34543465) NO GROWTH AFTER 5 DAYS, FINAL REPORT [facility] Hospitalerum or plasma intact pararthyroid hormone measurement (mass/volume)2019-06-15 05:20:00* Test Item Value Reference Range Interpretation Comments Parathyroid Hormone (Intact) (test code = 2731-8) 313 15-6 5 Performed at: [employer] [address] [id number] Director: Doc Bartlett MD, Phone: [phone] Health Arlington Memorial Hospitalerum or plasma intact pararthyroid hormone measurement (mass/volume) 2019-06-15 05:20:00* Test Item Value Reference Range Interpretation Comments Parathyroid Hormone (Intact) (test code = 2731-8) 313 15-6 5 Performed at: [employer] [facility] [address] [id number] Director: Doc Bartlett MD, Phone: [phone] Health Arlington Memorial Hospitalerum or plasma magnesium measurement (mass/volume)2019-06-13 17:37:00* Test Item Value Reference Range Interpretation Comments Magnesium Level (test code = 59282-9) 1.5 1.3-2.1 [facility] Hospitalerum or plasma magnesium measurement (mass/volume)2019-06-13 17:37:00* Test Item Value Reference Range Interpretation Comments Magnesium Level (test code = 92659-8) 1.5 1.3-2.1 [facility] SINGLE (PORTABLE)2019-06-13 17:09:00 [facility] [address] [address] Patient Name: MANJIT LUO MR #: [id number] : 1980 Age/Sex: 38/M Req #: [id number] Adm Physician: ABHIJIT YODER MD Ordered by: CASTRO JALLOH MD Report #: [id number] Location: MED/SURG Room/Bed: [facility] Procedure: [id number] DX/CH EST SINGLE (PORTABLE) Exam Date: 06/13/19 [...] Bilirubin (test code = 1975-2) 0.3 0.2-1.2 [facility] CenterFluoroscopic procedure less than one hour slnamlij1390-32-96 05:30:00* Test Item Value Reference Range Interpretation Comments Aspartate Amino Transf (AST/SGOT) (test code = Aspartate Amino Transf (AST/SGOT)) 38 5-34 [facility] Hospitalerum or plasma alanine aminotransferase measurement (enzymatic activity/volume)2019-06-13 05:30:00* Test Item Value Reference Range Interpretation Comments Alanine Aminotransferase (ALT/SGPT) (test code = 1742-6) 22 0-55 [facility] Hospitalerum or plasma protein measurement (mass/volume)2019-06-13 05:30:00* Test Item Value Reference Range Interpretation Comments Total Protein (test code = 2885-2) 7.6 6.5-8.1 [facility] [facility] CenterPlasma globulin measurement (mass/volume) 2019-06-13 05:30:00* Test Item Value Reference Range Interpretation Comments Globulin (test code = 95986-4) 5.1 2.3-3.5 [facility] Hospitalerum or plasma albumin/globulin mass wikwe9333-35-13 05:30:00* Test Item Value Reference Range Interpretation Comments Albumin/Globulin Ratio (test code = 1759-0) 0.5 0.8-2.0 [facility] Hospitalerum or plasma alkaline phosphatase measurement (enzymatic activity/volume)2019-06-13 05:30:00* Test Item Value Reference Range Interpretation Comments Alkaline Phosphatase (test code = 6768-6) 332 40-150 [facility] CenterUrine color gamhlihrbxmrs0139-68-95 12:24:00* Test Item Value Reference Range Interpretation Comments Urine Color (test code = 5778-6) YELLOW YELLOW [facility] CenterUrine xrxcrtm2683-41-99 12:24:00* Test Item Value Reference Range Interpretation Comments Urine Clarity (test code = 90279-3) TURBID CLEAR [facility] Hospitalpecific gravity of Urine by Test strip 2019-06-12 12:24:00* Test Item Value Reference Range Interpretation Comments Urine Specific Hertel (test code = 5811-5) 1.020 1.010-1.02 5 [facility] CenterU[facility] pH measurement by automated test koorq0951-06-71 12:24:00* Test Item Value Reference Range Interpretation Comments Urine pH (test code = 46652-0) 6 5-7 [facility] CenterUrine leukocyte esterase detection by oeqlyxpc0363-82-77 12:24:00* Test Item Value Reference Range Interpretation Comments Urine Leukocyte Esterase (test code = 5799-2) 1+ NEGATIVE [facility] CenterUrine nitrite gfaacewky3796-71-26 12:24:00* Test Item Value Reference Range Interpretation Comments Urine Nitrite (test code = 44470-8) NEGATIVE NEGATIVE [facility] CenterUrine protein measurement by test strip (mass/volume)2019-06-12 12:24:00* Test Item Value Reference Range Interpretation Comments Urine Protein (test code = 5804-0) >=300 NEGATIVE [facility] CenterUrine glucose awrswtdgb1919-88-97 12:24:00* Test Item Value Reference Range Interpretation Comments Urine Glucose (UA) (test code = 2349-9) NEGATIVE NEGATIVE [facility] CenterUrine ketones detection by automated test rmmfb6324-77-25 12:24:00* Test Item Value Reference Range Interpretation Comments Urine Ketones (test code = 79057-8) TRACE NEGATIVE [facility] CenterUrine urobilinogen measurement by test strip (mass/volume)2019-06-12 12:24:00* Test Item Value Reference Range Interpretation Comments Urine Urobilinogen (test code = 68584-1) 0.2 0.2-1 [facility] CenterUrine total bilirubin measurement (mass/volume)2019-06-12 12:24:00* Test Item Value Reference Range Interpretation Comments Urine Bilirubin (test code = 1978-6) NEGATIVE NEGATIVE [facility] CenterUrine erythrocytes dbdrcjmsq0752-03-70 12:24:00* Test Item Value Reference Range Interpretation Comments Urine Blood (test code = 46542-7) 3+ NEGATIVE [facility] CenterAutomated urine sediment leukocyte count by microscopy (number/high power field)2019-06-12 12:24:00* Test Item Value Reference Range Interpretation Comments Urine WBC (test code = 5821-4) 21-50 0-5 [facility] CenterErythrocytes detection in urine sediment by light kxhwiuapze3536-31-63 12:24:00* Test Item Value Reference Range Interpretation Comments Urine RBC (test code = 17763-3) 11-20 0-5 [facility] CenterBacteria detection in urine sediment by light ejcjdcbtoz6482-17-21 12:24:00* Test Item Value Reference Range Interpretation Comments Urine Bacteria (test code = 77317-1) MANY NONE [facility] CenterEpithelial cells detection in urine sediment by light mfvvyugxqc8919-02-21 12:24:00* Test Item Value Reference Range Interpretation Comments Urine Epithelial Cells (test code = 45302-6) RARE NONE [facility] CenterMucus detection in urine sediment by light vigvsskiqw7343-28-01 12:24:00* Test Item Value Reference Range Interpretation Comments Urine Mucus (test code = 8247-9) FEW RARE [facility] CenterMucus detection in urine sediment by light oaxyuetuwu5164-73-24 12:24:00* Test Item Value Reference Range Interpretation Comments Urine Mucus (test code = 8247-9) FEW RARE [facility] CenterBNP Bgu-pGkl1414-15-19 12:15:00* Test Item Value Reference Range Interpretation Comments B-Type Natriuretic Peptide (test code = 19778-2) 218.9 0-100 [facility] Hospitalerum or plasma creatine kinase measurement (enzymatic activity/volume)2019-06-12 12:15:00* Test Item Value Reference Range Interpretation Comments Creatine Kinase (test code = 2157-6) 65 30-200 [facility] Hospitalerum or plasma creatine kinase MB measurement (mass/volume)2019-06-12 12:15:00* Test Item Value Reference Range Interpretation Comments Creatine Kinase MB (test code = 20749-9) 3.90 0-5.0 [facility] CenterTroponin I measurement by highly sensitive enzyme indcktanmtr6278-16-30 12:15:00* Test Item Value Reference Range Interpretation Comments Troponin I (test code = 75863-1) 0.053 0-0.300 [facility] Hospitalerum or plasma lipase measurement (enzymatic activity/volume)2019-06-12 12:15:00* Test Item Value Reference Range Interpretation Comments Lipase (test code = 3040-3) 14 [facility] Hospitalerum or plasma ethanol measurement (mass/volume)2019-06-12 12:15:00* Test Item Value Reference Range Interpretation Comments Ethyl Alcohol Level (test code = 5643-2) < 10.0 0.0-10.0 [facility] Tkg-pSyj9218-49-19 12:15:00* Test Item Value Reference Range Interpretation Comments B-Type Natriuretic Peptide (test code = 38980-5) 218.9 0-100 [facility] Hospitalerum or plasma lipase measurement (enzymatic activity/volume)2019-06-12 12:15:00* Test Item Value Reference Range Interpretation Comments Lipase (test code = 3040-3) 14 [facility] Hospitalerum or plasma ethanol measurement (mass/volume)2019-06-12 12:15:00* Test Item Value Reference Range Interpretation Comments Ethyl Alcohol Level (test code = 5643-2) < 10.0 0.0-10.0 [facility] CenterCHEST SINGLE (PORTABLE)2019-06-12 12:12:00 [place] [address] Patient Name: MANJIT LUO MR #: [id number] : 1980 Age/Sex: 38/M Req #: [id number] Adm Physician: Ordered by: JONATHAN YODER DO Report #: [id number] Location: ER Room/Bed: Procedure: [id number] DX/ CHEST SINGLE (PORTABLE) Exam Date: 06/12/19 [...] 1215 COPY TO: JONATHAN YODER DO Urine KSQ2630-63-73 06:13:00* Test Item Value Reference Range Interpretation Comments Urine WBC (test code = 5821-4) >50 0-5 H [facility] CenterUrine NKT8110-17-49 06:13:00* Test Item Value Reference Range Interpretation Comments Urine RBC (test code = 39271-1) 11-20 0-5 H [facility] CenterUrine Srlsnmfx2033-31-33 06:13:00* Test Item Value Reference Range Interpretation Comments Urine Bacteria (test code = 33703-2) FEW NONE [facility] CenterUrine Epithelial Zxmwi9268-81-90 06:13:00 * Test Item Value Reference Range Interpretation Comments Urine Epithelial Cells (test code = 69282-1) FEW NONE [facility] CenterUrine Bqsmd7322-01-83 05:56:00* Test Item Value Reference Range Interpretation Comments Urine Color (test code = 5778-6) YELLOW YELLOW [facility] CenterUrine Pjcuxft8100-76-41 05:56:00* Test Item Value Reference Range Interpretation Comments Urine Clarity (test code = 58629-2) CLOUDY CLEAR H [facility] CenterUrine Specific Dlefrfy3071-31-67 05:56:00 * Test Item Value Reference Range Interpretation Comments Urine Specific Hertel (test code = 5811-5) 1.025 1.010-1.02 5 [facility] CenterUrine aP2791-11-54 05:56:00* Test Item Value Reference Range Interpretation Comments Urine pH (test code = 91880-9) 7 5-7 [facility] CenterUrine Leukocyte Qejsusnt1401-41-12 05:56:00* Test Item Value Reference Range Interpretation Comments Urine Leukocyte Esterase (test code = 5799-2) MODERATE NEGATIVE [facility] CenterUrine Uavtxzv1160-33-71 05:56:00* Test Item Value Reference Range Interpretation Comments Urine Nitrite (test code = 52143-4) NEGATIVE NEGATIVE [facility] CenterUrine Fixotwq1740-36-60 05:56:00* Test Item Value Reference Range Interpretation Comments Urine Protein (test code = 5804-0) >=300 NEGATIVE [facility] CenterUrine Glucose (UA)2019-06-09 05:56:00* Test Item Value Reference Range Interpretation Comments Urine Glucose (UA) (test code = 2349-9) NEGATIVE NEGATIVE [facility] CenterUrine Srvbjyt0776-88-24 05:56:00* Test Item Value Reference Range Interpretation Comments Urine Ketones (test code = 69946-1) NEGATIVE NEGATIVE [facility] CenterUrine Agrpcxlvyigu4106-45-86 05:56:00* Test Item Value Reference Range Interpretation Comments Urine Urobilinogen (test code = 53364-2) 0.2 0.2-1 [facility] CenterUrine Dpinvkqsa2204-85-41 05:56:00* Test Item Value Reference Range Interpretation Comments Urine Bilirubin (test code = 1978-6) NEGATIVE NEGATIVE [facility] CenterUrine Vupzn7207-76-38 05:56:00* Test Item Value Reference Range Interpretation Comments Urine Blood (test code = 47222-7) 2+ NEGATIVE [facility] CenterAmylase Cdjdg9652-43-71 05:47:00* Test Item Value Reference Range Interpretation Comments Amylase Level (test code = 1798-8) 41 25-125 [facility] CenterLipase2020-04-16 05:47:00* Test Item Value Reference Range Interpretation Comments Lipase (test code = 3040-3) 15 8-78 [facility] Hospitalodium Murzy7318-54-05 05:37:00* Test Item Value Reference Range Interpretation Comments Sodium Level (test code = 2951-2) 135 136-145 L [facility] CenterPotassium Rzyjw9053-22-89 05:37:00* Test Item Value Reference Range Interpretation Comments Potassium Level (test code = 2823-3) 5.0 3.5-5.1 [facility] CenterChloride Jucrr3137-46-29 05:37:00* Test Item Value Reference Range Interpretation Comments Chloride Level (test code = 2075-0) 107 98-107 [facility] CenterCarbon Dioxide Qdvci8842-27-08 05:37:00* Test Item Value Reference Range Interpretation Comments Carbon Dioxide Level (test code = 2028-9) 20 22-29 L [facility] CenterAnion Iae2947-81-86 05:37:00* Test Item Value Reference Range Interpretation Comments Anion Gap (test code = 50442-8) 13.0 8-16 [facility] CenterBlood Urea Blepagho9794-56-41 05:37:00* Test Item Value Reference Range Interpretation Comments Blood Urea Nitrogen (test code = 3094-0) 55 7-26 H [facility] CenterCreatinine2020-04-16 05:37:00* Test Item Value Reference Range Interpretation Comments Creatinine (test code = 2160-0) 5.13 0.72-1.25 H [facility] CenterBUN/Creatinine Wbvds8121-50-45 05:37:00* Test Item Value Reference Range Interpretation Comments BUN/Creatinine Ratio (test code = 3097-3) 11 6-25 [facility] CenterEstimat Glomerular Filtration Rate 2019-06-09 05:37:00* Test Item Value Reference Range Interpretation Comments Estimat Glomerular Filtration Rate (test code = 773216863) 13 >60 L Ranges were taken from the National Kidney Disease Education Program and the [facility] [employer] literature.Reference ranges:60 or greater: Bvgnwa66-17 ( for 3 consecutive months): Chronic kidney disease 15 or less: Kidney failureCovenant Medical CenterGlucose Eqdml6022-56-28 05:37:00* Test Item Value Reference Range Interpretation Comments Glucose Level (test code = VUA9735) 148 74-118 H [facility] CenterCalcium Iffuh4074-97-93 05:37:00* Test Item Value Reference Range Interpretation Comments Calcium Level (test code = 33108-6) 7.6 8.4-10.2 L [facility] CenterTotal Jznrrimsv7095-18-67 05:37:00* Test Item Value Reference Range Interpretation Comments Total Bilirubin (test code = 1975-2) 0.2 0.2-1.2 [facility] CenterAspartate Amino Transf (AST/SGOT) 2019-06-09 05:37:00* Test Item Value Reference Range Interpretation Comments Aspartate Amino Transf (AST/SGOT) (test code = Aspartate Amino Transf (AST/SGOT)) 18 5-34 [facility] CenterAlanine Aminotransferase (ALT/SGPT) 2019-06-09 05:37:00* Test Item Value Reference Range Interpretation Comments Alanine Aminotransferase (ALT/SGPT) (test code = 1742-6) 17 0-55 [facility] CenterTotal Itobqcy6249-44-16 05:37:00* Test Item Value Reference Range Interpretation Comments Total Protein (test code = 2885-2) 8.0 6.5-8.1 [facility] CenterAlbumin2020-04-16 05:37:00* Test Item Value Reference Range Interpretation Comments Albumin (test code = 1751-7) 2.7 3.5-5.0 L [facility] CenterGlobulin2020-04-16 05:37:00* Test Item Value Reference Range Interpretation Comments Globulin (test code = 94782-3) 5.3 2.3-3.5 H [facility] CenterAlbumin/Globulin Bbtyk7546-11-99 05:37:00 * Test Item Value Reference Range Interpretation Comments Albumin/Globulin Ratio (test code = 1759-0) 0.5 0.8-2.0 L [facility] CenterAlkaline Lzvqvfrgrwl9956-52-24 05:37:00* Test Item Value Reference Range Interpretation Comments Alkaline Phosphatase (test code = 6768-6) 279 40-150 H [facility] CenterABDOMEN-1VIEW (KUB)2019-06-09 05:32:00 [facility] [address] [place] [address] Patient Name: MANJIT LUO MR #: [id number] : 1980 Age/Sex: 38/M Req #: [id number] Adm Physician: Ordered by: MARIELLE MARSH MD Report #: [id number] Location: ER Room/Bed: Procedure: [id number] DX/ABDOMEN-1VIEW [...] COPY TO: MARIELLE MARSH MD Bacterial urine mdloekb4247-43-12 05:25:00* Test Item Value Reference Range Interpretation Comments Urine Culture (test code = 630-4) SUMIT PARAPSILOSIS [facility] CenterWhite Blood Cqjcn2756-74-48 05:08:00* Test Item Value Reference Range Interpretation Comments White Blood Count (test code = 6690-2) 6.14 4.8-10.8 [facility] CenterRed Blood Kwxxk7637-14-22 05:08:00* Test Item Value Reference Range Interpretation Comments Red Blood Count (test code = 789-8) 3.63 4.3-5.7 L [facility] CenterHemoglobin2020-04-16 05:08:00* Test Item Value Reference Range Interpretation Comments Hemoglobin (test code = 92014-8) 9.3 14.0-18.0 L [facility] CenterHematocrit2020-04-16 05:08:00* Test Item Value Reference Range Interpretation Comments Hematocrit (test code = 4544-3) 29.7 38.2-49.6 L [facility] CenterMean Corpuscular Kiqdss8536-31-08 05:08:00* Test Item Value Reference Range Interpretation Comments Mean Corpuscular Volume (test code = 787-2) 81.8 81-99 [facility] CenterMean Corpuscular Wlafazsvav2994-86-71 05:08:00* Test Item Value Reference Range Interpretation Comments Mean Corpuscular Hemoglobin (test code = 785-6) 25.6 28-32 L [facility] CenterMe Corpuscular Hemoglobin Concent 2019-06-09 05:08:00* Test Item Value Reference Range Interpretation Comments Mean Corpuscular Hemoglobin Concent (test code = 786-4) 31.3 31-35 [facility] CenterRed Cell Distribution Hxeop8581-20-61 05:08:00* Test Item Value Reference Range Interpretation Comments Red Cell Distribution Width (test code = 11233-0) 15.0 11.7 -14.4 H [facility] CenterPlatelet Yolwp0007-60-44 05:08:00* Test Item Value Reference Range Interpretation Comments Platelet Count (test code = 777-3) 141 140-360 [facility] CenterNeutrophils (%) (Auto)2019-06-09 05:08:00 * Test Item Value Reference Range Interpretation Comments Neutrophils (%) (Auto) (test code = 48133-9) 68.2 38.7-80.0 [facility] CenterLymphocytes (%) (Auto)2019-06-09 05:08:00 * Test Item Value Reference Range Interpretation Comments Lymphocytes (%) (Auto) (test code = 736-9) 18.7 18.0-39.1 [facility] CenterMonocytes (%) (Auto)2019-06-09 05:08:00* Test Item Value Reference Range Interpretation Comments Monocytes (%) (Auto) (test code = 5905-5) 6.2 4.4-11.3 [facility] CenterEosinophils (%) (Auto)2019-06-09 05:08:00 * Test Item Value Reference Range Interpretation Comments Eosinophils (%) (Auto) (test code = 713-8) 4.1 0.0-6.0 [facility] CenterBasophils (%) (Auto)2019-06-09 05:08:00* Test Item Value Reference Range Interpretation Comments Basophils (%) (Auto) (test code = 706-2) 0.7 0.0-1.0 [facility] CenterIM GRANULOCYTES %2019-06-09 05:08:00* Test Item Value Reference Range Interpretation Comments IM GRANULOCYTES % (test code = IM GRANULOCYTES %) 2.1 0.0- 1.0 H [facility] CenterNeutrophils # (Auto)2019-06-09 05:08:00* Test Item Value Reference Range Interpretation Comments Neutrophils # (Auto) (test code = 751-8) 4.2 2.1-6.9 [facility] CenterLymphocytes # (Auto)2019-06-09 05:08:00* Test Item Value Reference Range Interpretation Comments Lymphocytes # (Auto) (test code = 68104-1) 1.2 1.0-3.2 [facility] CenterMonocytes # (Auto)2019-06-09 05:08:00* Test Item Value Reference Range Interpretation Comments Monocytes # (Auto) (test code = 742-7) 0.4 0.2-0.8 [facility] CenterEosinophils # (Auto)2019-06-09 05:08:00* Test Item Value Reference Range Interpretation Comments Eosinophils # (Auto) (test code = 711-2) 0.3 0.0-0.4 [facility] CenterBasophils # (Auto)2019-06-09 05:08:00* Test Item Value Reference Range Interpretation Comments Basophils # (Auto) (test code = 704-7) 0.0 0.0-0.1 [facility] CenterAbsolute Immature Granulocyte (auto 2019-06-09 05:08:00* Test Item Value Reference Range Interpretation Comments Absolute Immature Granulocyte (auto (shin t code = Absolute Immature Granulocyte (auto) 0.13 0-0.1 H [facility] Hospitalerum or plasma amylase measurement (enzymatic activity/volume)2019-06-09 04:50:00* Test Item Value Reference Range Interpretation Comments Amylase Level (test code = 1798-8) 41 25-125 [facility] Hospitalerum or plasma amylase measurement (enzymatic activity/volume)2019-06-09 04:50:00* Test Item Value Reference Range Interpretation Comments Amylase Level (test code = 1798-8) 41 25-125 [facility] CenterBlood Uqgyaho9647-60-65 01:59:00* Test Item Value Reference Range Interpretation Comments Blood Culture (test code = 37368856) NO GROWTH AFTER 5 DAYS, FINAL REPORT [facility] Hqwvktg6470-22-73 16:41:00* Test Item Value Reference Range Interpretation Comments Bedside Glucose (test code = 17338-4) 71 70-120 Meter ID: [id number] [facility] Gl[facility] 2019-06-03 16:41:00* Test Item Value Reference Range Interpretation Comments Bedside Glucose (test code = 06912-6) 71 70-120 Meter ID: [id number] [facility] 2019-06-03 10:15:00* Test Item Value Reference Range Interpretation Comments Urine Culture (test code = 630-4) No Result Data Provided [facility] CenterUrine Mkxbmeg3940-31-24 10:15:00* Test Item Value Reference Range Interpretation Comments Urine Culture (test code = 630-4) No Result Data Provided [facility] CenterIR VRLMPYF6733-39-09 15:49:00 [place] [address] Patient Name: MANJIT LUO MR #: [id number] : 1980 Age/Sex: 38/M Req #: [id number] Adm Physician: ABHIJIT YODER MD Ordered by: FAIZA DOWNEY Report #: [id number] [facility] Room/Bed: [facility] Procedure: [id number] DX/IR CONSULT Exam Date: Exam Time: REPORT [...] 30. Primary Ope rator: Gen Anthony MD. Qualitative Field Project Manager: None. Approach: Left internal jugular vein Estimated [...] the needle into the IVC. A 6 Danish peel-away sheath was placed. A subcutaneous tunnel was created in the left anterior chest wall by blunt dissection. A 6 Danish dual-lumen tunneled central line was brought through [...] TO: FAIZA DOWNEY TUNNELLED CVC INSERT W/O PNYQ4005-79-52 15:49:00 [place] [address] Patient Name: MANJIT LUO MR #: [id number] : 1980 Age/Sex: 38/M Req #: [id number] [facility] Physician: ABHIJIT YODER MD Ordered by: ABHIJIT YODER MD Report #: [id number] Location: MED/SURG3 Room/Bed: [facility] Procedure: [id number] IR/TU NNELLED CVC INSERT W/O PORT Exam Date: Exam Time: REPORT STATUS: Signed Procedures: 1. Tunneled central line placement 2. Tunneled dialysis catheter removal. History: Need for long-term IV antibiotics. Modality: Sonography and fluoroscopy. Sedation: fentanyl 50 mcg was given intravenously for conscious sedation. Vital signs were monitored throughout the procedure by a nurse, and remained stable. Physician intra-service time was 30. Insurance Executive: Gen Anthony MD. Qualitative Field Project Manager: None. Approach: Left internal jugular vein Estimated [...] the needle into the IVC. A 6 Danish peel-away sheath was placed. A subcutaneous tunnel was created in the left anterior chest wall by blunt dissection. A 6 Danish dual- lumen tunneled central line was brought [...] on 06/02/2019 3:52 PM Dictated By: GEN Swna MD 51 Transcribed By : TIFFANY on 06/02/191551 COPY TO: ABHIJIT YODER MD GUIDANCE FOR VASCULAR AKUVE5313-53-12 15:49:00 [place] [address] Patient Name: MANJIT LUO MR #: [id number] : 1980 Age/Sex: 38/M Req #: [id number] Adm Physician: ABHIJIT YODER MD Ordered by: FAIZA DOWNEY Report #: [id number] Location: MED/SURG3 Room/Bed: 288-1 Procedure: [id number] US/US GUIDANCE FOR VASCULAR ACCES Exam Date: [...] remained stable. Physician intra-service time was 30. Insurance Executive: Gen Anthony MD. Qualitative Field Project Manager: None. Approach: Left internal jug ular vein [...] the needle into the IVC. A 6 Danish peel-away sheath was placed. A subcutaneous tunnel was created in the left anterior chest wall by blunt dissection. A 6 Danish dual- lumen tunneled central line was brought [...] on 06/02/191551 COPY TO: FAIZA DOWNEY Prothrombin Xlgt0643-03-74 12:37:00* Test Item Value Reference Range Interpretation Comments Prothrombin Time (test code = 5902-2) 15.4 11.9-14.5 H [facility] CenterProthromb Time International Ratio 2019-06-02 12:37:00* Test Item Value Reference Range Interpretation Comments Prothromb Time International Ratio (test code = 6301-6) 1.15 Oral Anticoagulant Therapy INR Values:1. Low Intensity Therapy 1.5 - 2.02 . Moderate Intensity Therapy 2.0 - 3.03. High Intensity Therapy(1) 2.5 - 3. 54. High Intensity Therapy(2) 3.0 - 4.05. Panic Value INR > 5.0 [facility] CenterProthrombin Oshc9928-35-52 12:37:00* Test Item Value Reference Range Interpretation Comments Prothrombin Time (test code = 5902-2) 15.4 11.9-14.5 H [facility] CenterProthromb Time International Ratio 2019-06-02 12:37:00* Test Item Value Reference Range Interpretation Comments Prothromb Time International Ratio (test code = 6301-6) 1.15 Oral Anticoagulant Therapy INR Values:1. Low Intensity Therapy 1.5 - 2.02 . Moderate Intensity Therapy 2.0 - 3.03. High Intensity Therapy(1) 2.5 - 3. 54. High Intensity Therapy(2) 3.0 - 4.05. Panic Value INR > 5.0 [facility] CenterProthrombin time (PT) in platelet poor plasma by coagulation usjty0097-98-46 12:20:00* Test Item Value Reference Range Interpretation Comments Prothrombin Time (test code = 5902-2) 15.4 11.9-14.5 [facility] CenterINR in Platelet poor plasma by Coagulation bzwxt5216-89-17 12:20:00* Test Item Value Reference Range Interpretation Comments Prothromb Time International Ratio (test code = 6301-6) 1.15 Oral Anticoagulant Therapy INR Values:1. Low Intensity Therapy 1.5 - 2.02 . Moderate Intensity Therapy 2.0 - 3.03. High Intensity Therapy(1) 2.5 - 3. 54. High Intensity Therapy(2) 3.0 - 4.05. Panic Value INR > 5.0 [facility] CenterHepatitis B Surface Wivxjmi1910-70-20 08:56:00* Test Item Value Reference Range Interpretation Comments Hepatitis B Surface Antigen (test code = 5196-1) Negative Negat stuart Performed at: - Lab[address] [id number] Director: Doc Bartlett MD, Phone: [phone] Medical CenterHepatitis B Surface Mgcrbrv9142-82-46 08:56:00* Test Item Value Reference Range Interpretation Comments Hepatitis B Surface Antigen (test code = 5196-1) Negative Negat stuart Performed at: [facility] [id number] Director: Doc Bartlett MD, Phone: [phone] Medical CenterBlood Tuzppwo6754-23-55 01:59:00* Test Item Value Reference Range Interpretation Comments Blood Culture (test code = 75862837) NO GROWTH AFTER 72 HOURS [facility] Hospitalerum or plasma hepatitis B virus surface antigen detection by xfxxsamspqo1113-19-86 14:15:00* Test Item Value Reference Range Interpretation Comments Hepatitis B Surface Antigen (test code = 5196-1) Negative Negat stuart Performed at: - [facility] [id number] Director: Doc Bartlett MD, Phone: [phone] Health Arlington Memorial Hospitalerum or plasma hepatitis B virus surface antigen detection by immunoassay 2019-06-01 14:15:00* Test Item Value Reference Range Interpretation Comments Hepatitis B Surface Antigen (test code = 5196-1) Negative Negat stuart Performed at: HD - [facility] [address] [id number] Director: Doc Bartlett MD, Phone: [phone] Health Arlington Memorial Hospitalodium Gwykd7446-12-20 07:00:00* Test Item Value Reference Range Interpretation Comments Sodium Level (test code = 2951-2) 136 136-145 [facility]Potassium Djkty4702-96-23 07:00:00* Test Item Value Reference Range Interpretation Comments Potassium Level (test code = 2823-3) 5.2 3.5-5.1 H [facility] CenterChloride Zoive6224-85-92 07:00:00* Test Item Value Reference Range Interpretation Comments Chloride Level (test code = 2075-0) 109 98-107 H [facility] CenterCarbon Dioxide Shmsz3892-79-92 07:00:00* Test Item Value Reference Range Interpretation Comments Carbon Dioxide Level (test code = 2028-9) 20 22-29 L [facility] CenterAnion Ffe8750-72-80 07:00:00* Test Item Value Reference Range Interpretation Comments Anion Gap (test code = 89212-6) 12.2 8-16 [facility] CenterBlood Urea Ugpskume6195-35-14 07:00:00* Test Item Value Reference Range Interpretation Comments Blood Urea Nitrogen (test code = 3094-0) 59 7-26 H [facility] CenterCreatinine2020-04-08 07:00:00* Test Item Value Reference Range Interpretation Comments Creatinine (test code = 2160-0) 5.91 0.72-1.25 H [facility] CenterBUN/Creatinine Uhydu3667-23-60 07:00:00* Test Item Value Reference Range Interpretation Comments BUN/Creatinine Ratio (test code = 3097-3) 10 6-25 [facility] CenterEstimat Glomerular Filtration Rate 2019-06-01 07:00:00* Test Item Value Reference Range Interpretation Comments Estimat Glomerular Filtration Rate (test code = 015790842) 11 >60 L Ranges were taken from the National Kidney Disease Education Program and the [facility] Kidney Foundation literature.Reference ranges:60 or greater: Kbcubu09-35 ( for 3 consecutive months): Chronic kidney disease 15 or less: Kidney failureCovenant Medical CenterGlucose Kaqzu8944-72-94 07:00:00* Test Item Value Reference Range Interpretation Comments Glucose Level (test code = PWI7186) 130 74-118 H [facility] CenterCalcium Kfjmq3019-31-82 07:00:00* Test Item Value Reference Range Interpretation Comments Calcium Level (test code = 77948-2) 7.2 8.4-10.2 L [facility] CenterPhosphorus Xudvy5966-82-37 07:00:00* Test Item Value Reference Range Interpretation Comments Phosphorus Level (test code = LPK4315) 5.1 2.3-4.7 H [facility] CenterMagnesium Xikcr0127-09-97 07:00:00* Test Item Value Reference Range Interpretation Comments Magnesium Level (test code = 69280-6) 1.7 1.3-2.1 [facility] CenterPhosphorus Rucef7432-94-17 07:00:00* Test Item Value Reference Range Interpretation Comments Phosphorus Level (test code = FWG0857) 5.1 2.3-4.7 H [facility] CenterMagnesium Azrwq8479-49-50 07:00:00* Test Item Value Reference Range Interpretation Comments Magnesium Level (test code = 18934-9) 1.7 1.3-2.1 [facility] CenterWhite Blood Xwjac3640-55-03 06:30:00* Test Item Value Reference Range Interpretation Comments White Blood Count (test code = 6690-2) 3.49 4.8-10.8 L [facility] CenterRed Blood Tjssn0895-03-06 06:30:00* Test Item Value Reference Range Interpretation Comments Red Blood Count (test code = 789-8) 3.62 4.3-5.7 L [facility] CenterHemoglobin2020-04-08 06:30:00* Test Item Value Reference Range Interpretation Comments Hemoglobin (test code = 07732-1) 9.3 14.0-18.0 L [facility] CenterHematocrit2020-04-08 06:30:00* Test Item Value Reference Range Interpretation Comments Hematocrit (test code = 4544-3) 29.9 38.2-49.6 L [facility] CenterMean Corpuscular Pwpubv0769-22-12 06:30:00* Test Item Value Reference Range Interpretation Comments Mean Corpuscular Volume (test code = 787-2) 82.6 81-99 [facility] CenterMean Corpuscular Awzpgjeemw5595-16-17 06:30:00* Test Item Value Reference Range Interpretation Comments Mean Corpuscular Hemoglobin (test code = 785-6) 25.7 28-32 L [facility] CenterMean Corpuscular Hemoglobin Concent 2019-06-01 06:30:00* Test Item Value Reference Range Interpretation Comments Mean Corpuscular Hemoglobin Concent (test code = 786-4) 31.1 31-35 [facility] CenterRed Cell Distribution Ofiov9097-24-12 06:30:00* Test Item Value Reference Range Interpretation Comments Red Cell Distribution Width (test code = 96731-3) 15.4 11.7 -14.4 H [facility] CenterPlatelet Pemvu2913-04-47 06:30:00* Test Item Value Reference Range Interpretation Comments Platelet Count (test code = 777-3) 118 140-360 L [facility] CenterNeutrophils (%) (Auto)2019-06-01 06:30:00 * Test Item Value Reference Range Interpretation Comments Neutrophils (%) (Auto) (test code = 65023-0) 70.7 38.7-80.0 [facility] CenterLymphocytes (%) (Auto)2019-06-01 06:30:00 * Test Item Value Reference Range Interpretation Comments Lymphocytes (%) (Auto) (test code = 736-9) 14.6 18.0-39.1 L [facility] CenterMonocytes (%) (Auto)2019-06-01 06:30:00* Test Item Value Reference Range Interpretation Comments Monocytes (%) (Auto) (test code = 5905-5) 8.9 4.4-11.3 [facility] CenterEosinophils (%) (Auto)2019-06-01 06:30:00 * Test Item Value Reference Range Interpretation Comments Eosinophils (%) (Auto) (test code = 713-8) 4.0 0.0-6.0 [facility] CenterBasophils (%) (Auto)2019-06-01 06:30:00* Test Item Value Reference Range Interpretation Comments Basophils (%) (Auto) (test code = 706-2) 0.9 0.0-1.0 [facility] CenterIM GRANULOCYTES %2019-06-01 06:30:00* Test Item Value Reference Range Interpretation Comments IM GRANULOCYTES % (test code = IM GRANULOCYTES %) 0.9 0.0- 1.0 [facility] CenterNeutrophils # (Auto)2019-06-01 06:30:00* Test Item Value Reference Range Interpretation Comments Neutrophils # (Auto) (test code = 751-8) 2.5 2.1-6.9 [facility] CenterLymphocytes # (Auto)2019-06-01 06:30:00* Test Item Value Reference Range Interpretation Comments Lymphocytes # (Auto) (test code = 39766-1) 0.5 1.0-3.2 L [facility] CenterMonocytes # (Auto)2019-06-01 06:30:00* Test Item Value Reference Range Interpretation Comments Monocytes # (Auto) (test code = 742-7) 0.3 0.2-0.8 [facility] CenterEosinophils # (Auto)2019-06-01 06:30:00* Test Item Value Reference Range Interpretation Comments Eosinophils # (Auto) (test code = 711-2) 0.1 0.0-0.4 [facility] CenterBasophils # (Auto)2019-06-01 06:30:00* Test Item Value Reference Range Interpretation Comments Basophils # (Auto) (test code = 704-7) 0.0 0.0-0.1 [facility] CenterAbsolute Immature Granulocyte (auto 2019-06-01 06:30:00* Test Item Value Reference Range Interpretation Comments Absolute Immature Granulocyte (auto (shin t code = Absolute Immature Granulocyte (auto) 0.03 0-0.1 [facility] CenterPhosphorus pkukxuczcbl7727-91-69 06:00:00 * Test Item Value Reference Range Interpretation Comments Phosphorus Level (test code = CON7114) 5.1 2.3-4.7 [facility] CenterTotal Tbquflxpz9941-42-63 07:19:00* Test Item Value Reference Range Interpretation Comments Total Bilirubin (test code = 1975-2) 0.5 0.2-1.2 [facility] CenterAspartate Amino Transf (AST/SGOT) 2019-05-31 07:19:00* Test Item Value Reference Range Interpretation Comments Aspartate Amino Transf (AST/SGOT) (test code = Aspartate Amino Transf (AST/SGOT)) 182 5-34 H [facility] CenterAlanine Aminotransferase (ALT/SGPT) 2019-05-31 07:19:00* Test Item Value Reference Range Interpretation Comments Alanine Aminotransferase (ALT/SGPT) (test code = 1742-6) 121 0-55 H [facility] CenterTotal Nujlcrb6798-58-92 07:19:00* Test Item Value Reference Range Interpretation Comments Total Protein (test code = 2885-2) 7.2 6.5-8.1 [facility] CenterAlbumin2020-04-07 07:19:00* Test Item Value Reference Range Interpretation Comments Albumin (test code = 1751-7) 2.3 3.5-5.0 L [facility] CenterGlobulin2020-04-07 07:19:00* Test Item Value Reference Range Interpretation Comments Globulin (test code = 20180-6) 4.9 2.3-3.5 H [facility] CenterAlbumin/Globulin Cways3358-14-03 07:19:00 * Test Item Value Reference Range Interpretation Comments Albumin/Globulin Ratio (test code = 1759-0) 0.5 0.8-2.0 L [facility] CenterAlkaline Tcpbnekavqr1962-71-02 07:19:00* Test Item Value Reference Range Interpretation Comments Alkaline Phosphatase (test code = 6768-6) 412 40-150 H [facility] CenterUrine ZGI2355-69-69 02:21:00* Test Item Value Reference Range Interpretation Comments Urine WBC (test code = 5821-4) >50 0-5 H [facility] CenterUrine DCE2256-37-26 02:21:00* Test Item Value Reference Range Interpretation Comments Urine RBC (test code = 33248-3) 21-50 0-5 H [facility] CenterUrine Gncimroe9734-68-69 02:21:00* Test Item Value Reference Range Interpretation Comments Urine Bacteria (test code = 95464-1) MANY NONE H [facility] CenterUrine Epithelial Eqsxc4612-98-98 02:21:00 * Test Item Value Reference Range Interpretation Comments Urine Epithelial Cells (test code = 85497-3) FEW NONE [facility] CenterUrine Psgxr9759-97-90 02:21:00* Test Item Value Reference Range Interpretation Comments Urine Mucus (test code = 8247-9) FEW RARE H [facility] CenterUrine Nagbz7437-10-19 02:21:00* Test Item Value Reference Range Interpretation Comments Urine Yeast (test code = 65827-7) MANY NONE H [facility] CenterUrine Qojnf9902-76-23 02:21:00* Test Item Value Reference Range Interpretation Comments Urine Mucus (test code = 8247-9) FEW RARE H [facility] Mybwj7104-08-57 02:21:00* Test Item Value Reference Range Interpretation Comments Urine Yeast (test code = 44406-6) MANY NONE H [facility] CenterUrine Kwjpf4955-93-37 02:12:00* Test Item Value Reference Range Interpretation Comments Urine Color (test code = 5778-6) YELLOW YELLOW [facility] CenterUrine Cxukvdl1172-48-58 02:12:00* Test Item Value Reference Range Interpretation Comments Urine Clarity (test code = 06196-7) CLOUDY CLEAR [facility] Specific Fyhizjb2368-60-25 02:12:00 * Test Item Value Reference Range Interpretation Comments Urine Specific Hertel (test code = 5811-5) 1.025 1.010-1.02 5 [facility] hM7283-92-46 02:12:00* Test Item Value Reference Range Interpretation Comments Urine pH (test code = 52171-5) 5.5 5-7 [facility] CenterUrine Leukocyte Sahoxrrg0140-77-54 02:12:00* Test Item Value Reference Range Interpretation Comments Urine Leukocyte Esterase (test code = 5799-2) 2+ NEGATIVE [facility] Rqshyft2569-32-13 02:12:00* Test Item Value Reference Range Interpretation Comments Urine Nitrite (test code = 46302-4) POSITIVE NEGATIVE [facility] Wfgypbi0618-27-80 02:12:00* Test Item Value Reference Range Interpretation Comments Urine Protein (test code = 5804-0) >=300 NEGATIVE [facility] CenterUrine Glucose (UA)2019-05-30 02:12:00* Test Item Value Reference Range Interpretation Comments Urine Glucose (UA) (test code = 2349-9) 1+ NEGATIVE [facility] Vehvbog2743-20-50 02:12:00* Test Item Value Reference Range Interpretation Comments Urine Ketones (test code = 26035-4) NEGATIVE NEGATIVE [facility] Jurnkjxjbdko6038-79-93 02:12:00* Test Item Value Reference Range Interpretation Comments Urine Urobilinogen (test code = 68719-8) 0.2 0.2-1 [facility] CenterUrine Axezztnbm1518-22-91 02:12:00* Test Item Value Reference Range Interpretation Comments Urine Bilirubin (test code = 1978-6) NEGATIVE NEGATIVE [facility] CenterUrine Xuidu4404-14-23 02:12:00* Test Item Value Reference Range Interpretation Comments Urine Blood (test code = 42039-0) 4+ NEGATIVE H [facility] CenterYeast detection in urine sediment by light mditfbrnzm5231-38-51 01:50:00* Test Item Value Reference Range Interpretation Comments Urine Yeast (test code = 34645-5) MANY NONE [facility] CenterYeast detection in urine sediment by light isbmcyykre6685-15-39 01:50:00* Test Item Value Reference Range Interpretation Comments Urine Yeast (test code = 83118-6) MANY NONE [facility] CenterCHEST SINGLE (PORTABLE)2019-05-30 01:18:00 [facility] [address] [place] [address] Patient Name: MANJIT LUO MR #: [id number] : 1980 Age/Sex: 38/M Req #: [id number] Adm Physician: Ordered by: MARIELLE MARSH MD Report #: [id number] Location: ER Room/Bed: Procedure: [id number] DX/CHEST SINGLE (PORTABLE) Exam Date: 05/30/19 Exam Time: 0050 REPORT STATUS: Sign ed EXAMINATION: CHEST SINGLE (PORTABLE) COMPARISON: Chest x-ray 04/23 INDICATION: fever [id number] Y DISCUSSION: Frontal view of the [...] COPY TO: BAYRON MARSH MD Lactic Acid Buggk1404-37-12 01:08:00* Test Item Value Reference Range Interpretation Comments Lactic Acid Level (test code = Lactic Acid Level) 1.0 0.5- 2.0 [facility] CenterLactic Acid Pjmau6805-43-53 01:08:00* Test Item Value Reference Range Interpretation Comments Lactic Acid Level (test code = Lactic Acid Level) 1.0 0.5- 2.0 [facility] CenterCT ABDOMEN/PELVIS AH6471-09-18 01:06:00 [place] [address] Patient Name: MANJIT LUO MR #: [id number] : 1980 Age/Sex: 38/M Req #: [id number] Adm Physician: Ordered by: MARIELLE MARSH MD Report #: [id number] Location: ER Room/Bed: Procedure: [id number] CT/CT ABDOMEN/PELVIS WO Exam Date: 05/30/19 Jeff [...] MD Fluoroscopic procedure less than one hour rnzxadfb4449-93-82 00:23:00* Test Item Value Reference Range Interpretation Comments Lactic Acid Level (test code = Lactic Acid Level) 1.0 0.5- 2.0 [facility] 1 & 2 lplkmlbj0134-27-49 15:06:51* Test Item Value Reference Range Interpretation Comments Case number (test code = 5058539) [id number] C1Q class 1 & 2 antibody (test code = 8603020) See emilee mckeon below for PDF Lab Report [facility] Sbvwver4507-45-16 16:03:00* Test Item Value Reference Range Interpretation Comments Bedside Glucose (test code = 69539-8) 129 70-120 H Meter ID: [id number] [facility] HospitalABDOMEN-1VIEW (KUB) 2019-05-20 11:54:00 [place] [address] Patient Name: MANJIT LUO MR #: [id number] : 1980 Age/Sex: 38/M Req #: [id number] Adm Physician: ABHIJIT YODER MD Ordered by: ABHIJIT YODER MD Report #: [id number] Location: MED/SURG2 Room/Bed: [facility] Procedure: [id number] DX/AB KHAN (KU) Exam Date: 05/20/19 Exam Time: 105 9 [...] 1157 Transcribe d By: TIFFANY on 05/20/19 5097 COPY TO: ABHIJIT YODER MD Sodium Xtukq1080-86-39 05:37:00* Test Item Value Reference Range Interpretation Comments Sodium Level (test code = 2951-2) 137 136-145 [facility] CenterPotassium Diryb2894-36-59 05:37:00* Test Item Value Reference Range Interpretation Comments Potassium Level (test code = 2823-3) 4.7 3.5-5.1 [facility] CenterChloride Anczt7666-75-14 05:37:00* Test Item Value Reference Range Interpretation Comments Chloride Level (test code = 2075-0) 103 98-107 [facility] CenterCarbon Dioxide Ertwh2553-82-70 05:37:00* Test Item Value Reference Range Interpretation Comments Carbon Dioxide Level (test code = 2028-9) 27 22-29 [facility] CenterAnion Nrt6723-80-40 05:37:00* Test Item Value Reference Range Interpretation Comments Anion Gap (test code = 26050-1) 11.7 8-16 [facility] CenterBlood Urea Aerugkgr3574-85-57 05:37:00* Test Item Value Reference Range Interpretation Comments Blood Urea Nitrogen (test code = 3094-0) 23 - [facility] CenterCreatinine2020-03-26 05:37:00* Test Item Value Reference Range Interpretation Comments Creatinine (test code = 2160-0) 3.50 0.72-1.25 H [facility] CenterBUN/Creatinine Qrtdd3190-43-01 05:37:00* Test Item Value Reference Range Interpretation Comments BUN/Creatinine Ratio (test code = 3097-3) 7 08-17 [facility] CenterEstimat Glomerular Filtration Rate 2019-05-19 05:37:00* Test Item Value Reference Range Interpretation Comments Estimat Glomerular Filtration Rate (test code = 849752189) 20 >60 L Ranges were taken from the National Kidney Disease Education Program and the [facility] Kidney Foundation literature.Reference ranges:60 or greater: Eysvjf32-75 ( for 3 consecutive months): Chronic kidney disease 15 or less: Kidney failureCovenant Medical CenterGlucose Nfrjx0890-06-22 05:37:00* Test Item Value Reference Range Interpretation Comments Glucose Level (test code = GZS3035) 130 74-118 H [facility] CenterCalcium Zjfbb7555-08-37 05:37:00* Test Item Value Reference Range Interpretation Comments Calcium Level (test code = 63148-1) 8.2 8.4-10.2 L [facility] CenterWhite Blood Gznia8017-71-69 09:35:00* Test Item Value Reference Range Interpretation Comments White Blood Count (test code = 6690-2) 4.21 4.8-10.8 L [facility] CenterRed Blood Acffp5160-79-71 09:35:00* Test Item Value Reference Range Interpretation Comments Red Blood Count (test code = 789-8) 3.61 4.3-5.7 L [facility] CenterHemoglobin2020-03-25 09:35:00* Test Item Value Reference Range Interpretation Comments Hemoglobin (test code = 45705-7) 9.3 14.0-18.0 L [facility] CenterHematocrit2020-03-25 09:35:00* Test Item Value Reference Range Interpretation Comments Hematocrit (test code = 4544-3) 30.1 38.2-49.6 L [facility] CenterMean Corpuscular Vzskbt7040-66-33 09:35:00* Test Item Value Reference Range Interpretation Comments Mean Corpuscular Volume (test code = 787-2) 83.4 81-99 [facility] CenterMean Corpuscular Uskmagrtib1491-99-16 09:35:00* Test Item Value Reference Range Interpretation Comments Mean Corpuscular Hemoglobin (test code = 785-6) 25.8 28-32 L [facility] CenterMean Corpuscular Hemoglobin Concent 2019-05-18 09:35:00* Test Item Value Reference Range Interpretation Comments Mean Corpuscular Hemoglobin Concent (test code = 786-4) 30.9 31-35 L [facility] CenterRed Cell Distribution Gbrdw3162-75-80 09:35:00* Test Item Value Reference Range Interpretation Comments Red Cell Distribution Width (test code = 88906-1) 14.6 11.7 -14.4 H [facility] CenterPlatelet Fcirg2235-75-63 09:35:00* Test Item Value Reference Range Interpretation Comments Platelet Count (test code = 777-3) 133 140-360 L [facility] CenterNeutrophils (%) (Auto)2019-05-18 09:35:00 * Test Item Value Reference Range Interpretation Comments Neutrophils (%) (Auto) (test code = 48249-1) 59.3 38.7-80.0 [facility] CenterLymphocytes (%) (Auto)2019-05-18 09:35:00 * Test Item Value Reference Range Interpretation Comments Lymphocytes (%) (Auto) (test code = 736-9) 29.5 18.0-39.1 [facility] CenterMonocytes (%) (Auto)2019-05-18 09:35:00* Test Item Value Reference Range Interpretation Comments Monocytes (%) (Auto) (test code = 5905-5) 5.7 4.4-11.3 [facility] CenterEosinophils (%) (Auto)2019-05-18 09:35:00 * Test Item Value Reference Range Interpretation Comments Eosinophils (%) (Auto) (test code = 713-8) 4.5 0.0-6.0 [facility] CenterBasophils (%) (Auto)2019-05-18 09:35:00* Test Item Value Reference Range Interpretation Comments Basophils (%) (Auto) (test code = 706-2) 0.5 0.0-1.0 [facility] CenterIM GRANULOCYTES %2019-05-18 09:35:00* Test Item Value Reference Range Interpretation Comments IM GRANULOCYTES % (test code = IM GRANULOCYTES %) 0.5 0.0- 1.0 [facility] CenterNeutrophils # (Auto)2019-05-18 09:35:00* Test Item Value Reference Range Interpretation Comments Neutrophils # (Auto) (test code = 751-8) 2.5 2.1-6.9 [facility] CenterLymphocytes # (Auto)2019-05-18 09:35:00* Test Item Value Reference Range Interpretation Comments Lymphocytes # (Auto) (test code = 11774-5) 1.2 1.0-3.2 [facility] CenterMonocytes # (Auto)2019-05-18 09:35:00* Test Item Value Reference Range Interpretation Comments Monocytes # (Auto) (test code = 742-7) 0.2 0.2-0.8 [facility] CenterEosinophils # (Auto)2019-05-18 09:35:00* Test Item Value Reference Range Interpretation Comments Eosinophils # (Auto) (test code = 711-2) 0.2 0.0-0.4 [facility] CenterBasophils # (Auto)2019-05-18 09:35:00* Test Item Value Reference Range Interpretation Comments Basophils # (Auto) (test code = 704-7) 0.0 0.0-0.1 [facility] CenterAbsolute Immature Granulocyte (auto 2019-05-18 09:35:00* Test Item Value Reference Range Interpretation Comments Absolute Immature Granulocyte (auto (shin t code = Absolute Immature Granulocyte (auto) 0.02 0-0.1 [facility] Hospitalingle antigen uvwfr9250-59-77 09:20:50* Test Item Value Reference Range Interpretation Comments SAB interpretation (test code = 5950) Additional antib tripp information: DP1=DPB1*01:01/DPA1*02:02VX5=HPR0*05:01/DPA1*02:19PO5=CWV9*03:03/DQA1*02:01DR53= is a self-antigen SAB serum ID (test code = 5866) [id number] [facility] serum collection D&T (test code = 5867) 05/03/2019 08:30 AM SAB class I antibody assignment (test code = 5870) Negative SAB cPRA class I (test code = 5868) 0 SAB class II antibody assignment (test code = 5871) DP1,DR10 ,DP5,DR53,DR51,DQ9 SAB cPRA class II (test code = 5869) 74 Case number (test code = 8812183) [id number] Single antigen beads (test code = 4604) See link below for PDF Lab Report Aleln MethodkianaUrine Qenigch7742-66-86 08:02:00* Test Item Value Reference Range Interpretation Comments Urine Culture (test code = 630-4) No Result Data Provided [facility] CenterUrine Rmnwsnq4808-60-04 08:02:00* Test Item Value Reference Range Interpretation Comments Urine Culture (test code = 630-4) No Result Data Provided [facility] CenterUrine Pbsjctl5560-16-34 08:02:00* Test Item Value Reference Range Interpretation Comments Urine Culture (test code = 630-4) No Result Data Provided [facility] CenterABDOMEN-1VIEW (KUB)2019-05-16 13:43:00 [place] [address] Patient Name: MANJIT LUO MR #: [id number] : 1980 Age/Sex: 38/M Req #: [id number] Adm Physician: ABHIJIT YODER MD Ordered by: FAIZA DOWNEY Report #: [id number] Location: MED/SURG2 Room/Bed: [facility] Procedure: [id number] DX/ABDOMEN-1VIEW (KUB) Exam Date: 05/16/19 Exam Cm [...] 134 5 COPY TO: FAIZA DOWNEY IR CAQKYVN3292-10-88 13:41:00 [place] [address] Patient Name: MANJIT LUO MR #: [id number] : 1980 Age/Sex: 38/M [facility] #: [id number] [facility] Physician: ABHIJIT YODER MD Ordered by: FAIZA DOWNEY Report #: [id number] Location: MED/SURG2 Room/Bed: [facility] Procedure: [id number] DX/IR CONSULT Exam Date: Exam Time: REPORT STATUS: Signed Tunneled dialysis alonso ter insertion, 05/16/2019. History: Renal failure. Modality: Sonography and fluoroscopy. Sedation: Genny sed 1.0 mg and fentanyl 50 mcg was given intravenously for conscious sedation. Vital signs were monitored throughout the procedure by a nurse, and remained stable. Physician intra-service time was 15 its. Insurance Executive: Saloni. Qualitative Field Project Manager: None. Approach: Right internal jugular vein Estimated [...] needle into the right atrium. A 4 Danish micropuncture sheath was placed. A subcutaneous tunnel was created in the right anterior chest wall by blunt dissection. A 19 cm 14.5 Danish dialysis catheter was brought through the tunnel. [...] COPY TO: FAIZA DOWNEY GUIDANCE FOR VASCULAR AVVLA8043-93-62 13:41:00 [place] [address] Patient Name: MANJIT LUO MR #: [id number] : 1980 Age/Sex: 38/M Req #: [id number] Adm Physician: ABHIJIT YODER MD Ordered by: FAIZA DOWNEY Report #: [id number] Location: MED/SURG2 Room/Bed: [facility] Procedure: [id number] US/US GUIDANCE FOR VASCULAR ACCES Exam Date: 05/16/19 Exam Time: 1225 REPORT STATUS: S igned Tunneled dialysis catheter insertion, 05/16/2019. History: Renal failure. Modality: Sonography and fluoroscopy. Sedation: Versed 1.0 mg and fentanyl 50 mcg was given intravenously for conscious sedation. Vital signs were monitored throughout the procedure by a nurse, and remained stable. Physician intra-service time was 15 its. Insurance Executive: [employer]oni. Qualitative Field Project Manager: None. Approach: Right internal jugular vein Estimated [...] into t he right atrium. A 4 Danish micropuncture sheath was placed. A subcutaneous t unnel was created in the right anterior chest wall by blunt dissection. A 19 cm 14.5 Danish dialysis catheter was brought through the tunnel. [...] MD 42 Transcr ibed By: TIFFANY on 05/16/19 134 COPY TO: FAIZA DOWNEY TUNNELLED CVC INSERT W/O LAUI1772-19-15 13:41:00 [place] [address] Patient Name: MANJIT LUO MR #: [id number] : 1980 Age/Sex: 38/M Req #: [id number] Adm Physician: ABHIJIT YODER MD Ordered by: FAIZA DOWNEY Report #: [id number] Location: MED/SURG2 Room/Bed: [facility] Procedure: [id number] IR/TUNNELLED CVC INSERT W/O PORT Exam Date: Exam T sage: REPORT STATUS: Signed [place] dialysis catheter insertion, 05/16/2019. History: Renal failure. Modality: Sonography and fluoroscopy. Sedation: Versed 1.0 mg and fentanyl 50 mcg was given intravenously for conscious sedation. Vital signs were monitored throughout the procedure by a nurse, and remained stable. Physician intra-service time was 15 its. Insurance Executive: Saloni. Qualitative Field Project Manager: None. Approach: Right internal jugular vein Estimated [...] into t he right atrium. A 4 Danish micropuncture sheath was placed. A subcutaneous t unnel was created in the right anterior chest wall by blunt dissection. A 19 cm 14.5 Danish dialysis catheter was brought through the tunnel. [...] 1:43 PM Dictated By: RONNIE VERDE MD 1347 Transcr ibed By: TIFFANY on 05/16/19 1348 COPY TO: FAIZA DOWNEY Prothrombin Qdfz3768-69-72 10:37:00* Test Item Value Reference Range Interpretation Comments Prothrombin Time (test code = 5902-2) 16.2 11.9-14.5 H [facility] CenterProthromb Time International Ratio 2019-05-16 10:37:00* Test Item Value Reference Range Interpretation Comments Prothromb Time International Ratio (test code = 6301-6) 1.22 Oral Anticoagulant Therapy INR Values:1. Low Intensity Therapy 1.5 - 2.02 . Moderate Intensity Therapy 2.0 - 3.03. High Intensity Therapy(1) 2.5 - 3. 54. High Intensity Therapy(2) 3.0 - 4.05. Panic Value INR > 5.0 [facility]Total Rndzujmbe5633-98-80 08:57:00* Test Item Value Reference Range Interpretation Comments Total Bilirubin (test code = 1975-2) 0.2 0.2-1.2 [facility] CenterDirect Ntnvzwtmw2443-72-73 08:57:00* Test Item Value Reference Range Interpretation Comments Direct Bilirubin (test code = 39772-7) 0.1 0.0-0.5 [facility] CenterAspartate Amino Transf (AST/SGOT) 2019-05-16 08:57:00* Test Item Value Reference Range Interpretation Comments Aspartate Amino Transf (AST/SGOT) (test code = Aspartate Amino Transf (AST/SGOT)) 40 5-34 H [facility] CenterAlanine Aminotransferase (ALT/SGPT) 2019-05-16 08:57:00* Test Item Value Reference Range Interpretation Comments Alanine Aminotransferase (ALT/SGPT) (test code = 1742-6) 47 0-55 [facility] CenterTotal Dwyhphf5384-61-78 08:57:00* Test Item Value Reference Range Interpretation Comments Total Protein (test code = 2885-2) 8.5 6.5-8.1 H [facility] CenterAlbumin2020-03-23 08:57:00* Test Item Value Reference Range Interpretation Comments Albumin (test code = 1751-7) 2.5 3.5-5.0 L [facility] CenterAlkaline Noghecxxrrk3379-65-91 08:57:00* Test Item Value Reference Range Interpretation Comments Alkaline Phosphatase (test code = 6768-6) 437 40-150 H [facility] CenterDirect Qbhnjjrbx4888-19-27 08:57:00* Test Item Value Reference Range Interpretation Comments Direct Bilirubin (test code = 72262-6) 0.1 0.0-0.5 [facility]Direct Afttwgdlo1834-15-27 08:57:00* Test Item Value Reference Range Interpretation Comments Direct Bilirubin (test code = 32379-3) 0.1 0.0-0.5 [facility] Hospitalerum or plasma conjugated bilirubin measurement (mass/volume)2019-05-16 05:00:00* Test Item Value Reference Range Interpretation Comments Direct Bilirubin (test code = 07362-0) 0.1 0.0-0.5 [facility] Hospitalerum or plasma conjugated bilirubin measurement (mass/volume)2019-05-16 05:00:00* Test Item Value Reference Range Interpretation Comments Direct Bilirubin (test code = 34746-9) 0.1 0.0-0.5 [facility] CenterMiscellaneous referral llwl6498-12-77 12:16:23* Test Item Value Reference Range Interpretation Comments Misc test name (test code = 2566) PTNT [facility] Misc test result (test code = 1730) SEE NOTE Report Status: FINAL Prothrombin [id number] Mutation, B PTNT Interpretation This individual DOES NOT have the Prothrombin I35658O mutation. Although the Prothrombin M43764B mutation is absent, the individual may have other genetic and environmental risk factors for thrombosis. Consider genetic consultation and counseling of potentially affected family members regarding laboratory testing. ADDITIONAL INFORMATION This test is a direct mutation analysis using PCR amplification, signal generation and release by cleavage of sequence specific alleles ([employer], [employer], [place], [place])............... ..............................................Prothrombin [id number] Mutation, B Negative Reference Value: Negative............................................................PTNT Reviewed By DARRYL Oneil - - - - - - - - - - - - - - - - - - - - - - - - - - - - - -Laboratory Notes:This test has been modified from the second time worker'sinstructions. Its performance characteristics weredetermined by [facility] in a manner consistent with CLIArequirements. This test has not been cleared or approved bythe U.S. Food and Drug Administration.+ +: PERFORMING SITE LEGEND :+ +: : [facility] :: : [address] [place] [address] :+ + IGNACIO (test code = IGNACIO) Prothrombin [id number] Mutation [facility] Test ID: PTNTSource: Whole Blood [facility] MethodistHepatitis B Surface Antibody, Eebcu9420-90-90 08:00:00* Test Item Value Reference Range Interpretation Comments Hepatitis B Surface Antibody, Quant (test code = 5194-6) <3.1 Immunity>9.9 L Status of Immunity Anti-HBs Level Inconsistent with Immunity 0.0 - 9.9Consistent with Immunity >9.9[facility] B Surface Wrmbdae5910-31-03 08:00:00* Test Item Value Reference Range Interpretation Comments Hepatitis B Surface Antigen (test code = 5196-1) Negative Negat stuart [facility] B Core IgM Dzowbkpl5307-07-33 08:00:00* Test Item Value Reference Range Interpretation Comments Hepatitis B Core IgM Antibody (test code = 86963-5) Negative Ne gative Performed at: [employer] [address] [id number] Director: Doc Bartlett MD, Phone: [phone] Health [facility] B Surface Antibody, Xrguk6805-45-78 08:00:00* Test Item Value Reference Range Interpretation Comments Hepatitis B Surface Antibody, Quant (test code = 5194-6) <3.1 Immunity>9.9 L Status of Immunity Anti-HBs Level Inconsistent with Immunity 0.0 - 9.9Consistent with Immunity >9.9[facility] B Core IgM Vcibuwde1343-03-51 08:00:00* Test Item Value Reference Range Interpretation Comments Hepatitis B Core IgM Antibody (test code = 59394-0) Negative Ne gative Performed at: [facility] [id number] Director: Doc Bartlett MD, Phone: [phone] Medical CenterHeireland army community hospitaltis B Surface Antibody, Unpyg8833-06-88 08:00:00* Test Item Value Reference Range Interpretation Comments Hepatitis B Surface Antibody, Quant (test code = 5194-6) <3.1 Immunity>9.9 L Status of Immunity Anti-HBs Level Inconsistent with Immunity 0.0 - 9.9Consistent with Immunity >9.9[facility] IgM Vjxkldcu5922-53-11 08:00:00* Test Item Value Reference Range Interpretation Comments Hepatitis B Core IgM Antibody (test code = 44238-3) Negative Ne gative Performed at: [facility] [id number] Director: Doc Bartlett MD, Phone: [phone] Health Arlington Memorial Hospitalerum hepatitis B virus surface antibody assay by radioimmunoassay (units/volume)2019-05-12 17:30:00* Test Item Value Reference Range Interpretation Comments Hepatitis B Surface Antibody, Quant (test code = 5194-6) <3.1 Immunity>9.9 Status of Immunity Anti-HBs Level Inconsistent with Immunity 0.0 - 9.9Consistent with Immunity >9.9[facility] Hospitalerum or plasma hepatitis B virus core IgM antibody detection by ibxzbljmwtk3476-26-48 17:30:00* Test Item Value Reference Range Interpretation Comments Hepatitis B Core IgM Antibody (test code = 44779-2) Negative Ne gative Performed at: [employer] [facility] [address] [id number] Director: Doc Bartlett MD, Phone: [phone] Health Arlington Memorial Hospitalerum hepatitis B virus surface antibody assay by radioimmunoassay (units/volume)2019-05-12 17:30:00* Test Item Value Reference Range Interpretation Comments Hepatitis B Surface Antibody, Quant (test code = 5194-6) <3.1 Immunity>9.9 Status of Immunity Anti-HBs Level Inconsistent with Immunity 0.0 - 9.9Consistent with Immunity >9.9[facility] Hospitalerum or plasma hepatitis B virus core IgM antibody detection by oolygmbswpp1486-62-10 17:30:00* Test Item Value Reference Range Interpretation Comments Hepatitis B Core IgM Antibody (test code = 38395-0) Negative Ne gative Performed at: - [facility] [id number] Director: Doc Bartlett MD, Phone: [phone] Medical CenterGlobulin2020-03-19 05:45:00* Test Item Value Reference Range Interpretation Comments Globulin (test code = 66271-4) 5.5 2.3-3.5 H [facility] CenterAlbumin/Globulin Ksjly8276-47-88 05:45:00 * Test Item Value Reference Range Interpretation Comments Albumin/Globulin Ratio (test code = 1759-0) 0.4 0.8-2.0 L [facility] CenterBlood Ciucaab0814-52-64 19:22:00* Test Item Value Reference Range Interpretation Comments Blood Culture (test code = 02607929) NO GROWTH AFTER 5 DAYS, FINAL REPORT [facility] CenterLow resolution full typing by SSO 2019-05-11 10:19:06* Test Item Value Reference Range Interpretation Comments Interpretation (test code = 2334354) Note: HLA typing was performed by PCR-SSO DNA based procedures.Note: The serological phenotype is an interpretation based on molecular typing data. Case number (test code = 1166031) [id number] Low resolution full typing by SSO (test code = 1359) S ee link below for PDF Lab Report Moore TpogmnizpEdcidvbw7234-43-08 06:07:00* Test Item Value Reference Range Interpretation Comments Ferritin (test code = 2276-4) 313.92 21.81-274.66 H [facility] CenterFerritin2020-03-18 06:07:00* Test Item Value Reference Range Interpretation Comments Ferritin (test code = 2276-4) 313.92 21.81-274.66 H [facility] CenterFerritin2020-03-18 06:07:00* Test Item Value Reference Range Interpretation Comments Ferritin (test code = 2276-4) 313.92 21.81-274.66 H [facility] CenterPhosphorus Qvdlo5313-34-70 05:50:00* Test Item Value Reference Range Interpretation Comments Phosphorus Level (test code = EAU2483) 6.2 2.3-4.7 H [facility]2020-03-18 05:50:00* Test Item Value Reference Range Interpretation Comments Iron Level (test code = 2498-4) 38 65-175 L [facility] CenterTotal Iron Binding Ewuulttj0401-55-93 05:50:00* Test Item Value Reference Range Interpretation Comments Total Iron Binding Capacity (test code = 2500-7) 165 261-4 78 L [facility] CenterPercent Iron Cxrkswldnw5769-34-61 05:50:00* Test Item Value Reference Range Interpretation Comments Percent Iron Saturation (test code = 2502-3) -50 [facility] CenterTransferrin2020-03-18 05:50:00* Test Item Value Reference Range Interpretation Comments Transferrin (test code = 3034-6) 118 174-364 L [facility]2020-03-18 05:50:00* Test Item Value Reference Range Interpretation Comments Iron Level (test code = 2498-4) 38 65-175 L [facility] CenterTotal Iron Binding Skaagbzm5697-14-42 05:50:00* Test Item Value Reference Range Interpretation Comments Total Iron Binding Capacity (test code = 2500-7) 165 261-4 78 L [facility] CenterPercent Iron Pdnfkijogu7388-73-15 05:50:00* Test Item Value Reference Range Interpretation Comments Percent Iron Saturation (test code = 2502-3) -50 [facility] CenterTransferrin2020-03-18 05:50:00* Test Item Value Reference Range Interpretation Comments Transferrin (test code = 3034-6) 118 174-364 L [facility]2020-03-18 05:50:00* Test Item Value Reference Range Interpretation Comments Iron Level (test code = 2498-4) 38 65-175 L [facility] CenterTotal Iron Binding Lulmwqsg2278-00-07 05:50:00* Test Item Value Reference Range Interpretation Comments Total Iron Binding Capacity (test code = 2500-7) 165 261-4 78 L [facility] CenterPercent Iron Hlttdaqtmh4818-82-90 05:50:00* Test Item Value Reference Range Interpretation Comments Percent Iron Saturation (test code = 2502-3) 50 [facility] CenterTransferrin2020-03-18 05:50:00* Test Item Value Reference Range Interpretation Comments Transferrin (test code = 3034-6) 118 174-364 L [facility] Hospitalerum or plasma iron measurement (mass/volume)2019-05-11 04:50:00* Test Item Value Reference Range Interpretation Comments Iron Level (test code = 2498-4) 38 65-175 [facility] Hospitalerum or plasma iron binding capacity measurement (mass/volume)2019-05-11 04:50:00* Test Item Value Reference Range Interpretation Comments Total Iron Binding Capacity (test code = 2500-7) 165 261-4 78 [facility] Hospitalerum or plasma iron saturation measurement (mass fraction)2019-05-11 04:50:00* Test Item Value Reference Range Interpretation Comments Percent Iron Saturation (test code = 2502-3) 50 [facility] Hospitalerum or plasma transferrin measurement (mass/volume)2019-05-11 04:50:00* Test Item Value Reference Range Interpretation Comments Transferrin (test code = 3034-6) 118 174-364 [facility] Hospitalerum or plasma ferritin measurement (mass/volume)2019-05-11 04:50:00* Test Item Value Reference Range Interpretation Comments Ferritin (test code = 2276-4) 313.92 21.81-274.66 [facility] Hospitalerum or plasma iron measurement (mass/volume)2019-05-11 04:50:00* Test Item Value Reference Range Interpretation Comments Iron Level (test code = 2498-4) 38 65-175 [facility] Hospitalerum or plasma iron binding capacity measurement (mass/volume)2019-05-11 04:50:00* Test Item Value Reference Range Interpretation Comments Total Iron Binding Capacity (test code = 2500-7) 165 261-4 78 [facility] Hospitalerum or plasma iron saturation measurement (mass fraction)2019-05-11 04:50:00* Test Item Value Reference Range Interpretation Comments Percent Iron Saturation (test code = 2502-3) 23 15-50 [facility] Hospitalerum or plasma transferrin measurement (mass/volume)2019-05-11 04:50:00* Test Item Value Reference Range Interpretation Comments Transferrin (test code = 3034-6) 118 174-364 [facility] Hospitalerum or plasma ferritin measurement (mass/volume)2019-05-11 04:50:00* Test Item Value Reference Range Interpretation Comments Ferritin (test code = 2276-4) 313.92 21.81-274.66 [facility] CenterBacterial urine zmqjvkf6260-91-03 15:50:00* Test Item Value Reference Range Interpretation Comments Urine Culture (test code = 630-4) YEAST SPECIES [facility] CenterUrine Kaurygs1797-21-53 07:34:00* Test Item Value Reference Range Interpretation Comments Urine Culture (test code = 630-4) No Result Data Provided [facility] CenterHemoglobin A1c Uldhnyv0468-84-27 20:19:00 * Test Item Value Reference Range Interpretation Comments Hemoglobin A1c Percent (test code = Hemoglobin A1c Percent) 5.2 4.0-7.0 [facility] CenterHemoglobin A1c Vjvuezb5792-75-09 20:19:00 * Test Item Value Reference Range Interpretation Comments Hemoglobin A1c Percent (test code = Hemoglobin A1c Percent) 5.2 4.0-7.0 [facility] CenterHemoglobin A1c Fyfebvn6691-86-79 20:19:00 * Test Item Value Reference Range Interpretation Comments Hemoglobin A1c Percent (test code = Hemoglobin A1c Percent) 5.2 4.0-7.0 [facility] CenterFree Wsvjpeflu2051-13-53 19:42:00* Test Item Value Reference Range Interpretation Comments Free Thyroxine (test code = 3024-7) 0.79 0.8-1.8 L [facility] CenterThyroid Stimulating Hormone (TSH) 2019-05-08 19:42:00* Test Item Value Reference Range Interpretation Comments Thyroid Stimulating Hormone (TSH) (test code = 11734-5) 1.669 0.350-4.940 [facility] CenterFree Bcjbcodeb6731-45-50 19:42:00* Test Item Value Reference Range Interpretation Comments Free Thyroxine (test code = 3024-7) 0.79 0.8-1.8 L [facility] CenterThyroid Stimulating Hormone (TSH) 2019-05-08 19:42:00* Test Item Value Reference Range Interpretation Comments Thyroid Stimulating Hormone (TSH) (test code = 65588-1) 1.669 0.350-4.940 [facility] Otkggdjhc9853-76-00 19:42:00* Test Item Value Reference Range Interpretation Comments Free Thyroxine (test code = 3024-7) 0.79 0.8-1.8 L [facility] CenterThyroid Stimulating Hormone (TSH) 2019-05-08 19:42:00* Test Item Value Reference Range Interpretation Comments Thyroid Stimulating Hormone (TSH) (test code = 90265-0) 1.669 0.350-4.940 [facility] CenterFluoroscopic procedure less than one hour lddambsf6048-64-37 18:10:00* Test Item Value Reference Range Interpretation Comments Hemoglobin A1c Percent (test code = Hemoglobin A1c Percent) 5.2 4.0-7.0 [facility] Hospitalerum or plasma thyroxine (T4) free measurement (mass/volume)2019-05-08 18:10:00* Test Item Value Reference Range Interpretation Comments Free Thyroxine (test code = 3024-7) 0.79 0.8-1.8 [facility] Hospitalerum or plasma thyrotropin measurement by detection limit <= 0.005 miu/l (units/volume)2019-05-08 18:10:00* Test Item Value Reference Range Interpretation Comments Thyroid Stimulating Hormone (TSH) (test code = 28917-6) 1.669 0.350-4.940 [facility] CenterFluoroscopic procedure less than one hour pupddsne2175-28-01 18:10:00* Test Item Value Reference Range Interpretation Comments Hemoglobin A1c Percent (test code = Hemoglobin A1c Percent) 5.2 4.0-7.0 [facility] Hospitalerum or plasma thyroxine (T4) free measurement (mass/volume)2019-05-08 18:10:00* Test Item Value Reference Range Interpretation Comments Free Thyroxine (test code = 3024-7) 0.79 0.8-1.8 [facility] Hospitalerum or plasma thyrotropin measurement by detection limit <= 0.005 miu/l (units/volume)2019-05-08 18:10:00* Test Item Value Reference Range Interpretation Comments Thyroid Stimulating Hormone (TSH) (test code = 22304-4) 1.669 0.350-4.940 [facility] CenterUrine XFO1439-47-99 20:28:00* Test Item Value Reference Range Interpretation Comments Urine WBC (test code = 5821-4) 11-20 0-5 H [facility] CenterUrine DQI8338-95-18 20:28:00* Test Item Value Reference Range Interpretation Comments Urine RBC (test code = 20339-3) 6-10 0-5 H [facility] CenterUrine Kdvwixnl4433-53-20 20:28:00* Test Item Value Reference Range Interpretation Comments Urine Bacteria (test code = 73995-8) MANY NONE H [facility] CenterUrine Epithelial Uxexs1629-65-69 20:28:00 * Test Item Value Reference Range Interpretation Comments Urine Epithelial Cells (test code = 35201-7) RARE NONE [facility] CenterUrine Ftzpu4696-71-85 20:12:00* Test Item Value Reference Range Interpretation Comments Urine Color (test code = 5778-6) YELLOW YELLOW [facility] CenterUrine Udklqus7430-96-66 20:12:00* Test Item Value Reference Range Interpretation Comments Urine Clarity (test code = 52938-9) CLOUDY CLEAR H [facility] CenterUrine Specific Uwbqwya1238-83-55 20:12:00 * Test Item Value Reference Range Interpretation Comments Urine Specific Hertel (test code = 5811-5) 1.020 1.010-1.02 5 [facility] CenterUrine nC2900-44-07 20:12:00* Test Item Value Reference Range Interpretation Comments Urine pH (test code = 21716-5) 5.5 5-7 [facility] CenterUrine Leukocyte Bujkrsss2378-52-43 20:12:00* Test Item Value Reference Range Interpretation Comments Urine Leukocyte Esterase (test code = 5799-2) LARGE NEGATIVE [facility] Vwkytic2510-76-77 20:12:00* Test Item Value Reference Range Interpretation Comments Urine Nitrite (test code = 99162-1) POSITIVE NEGATIVE H [facility] Sbprtjz5028-32-67 20:12:00* Test Item Value Reference Range Interpretation Comments Urine Protein (test code = 5804-0) >=300 NEGATIVE [facility] Glucose (UA)2019-05-06 20:12:00* Test Item Value Reference Range Interpretation Comments Urine Glucose (UA) (test code = 2349-9) 1+ NEGATIVE H [facility] Odxuigi9684-94-90 20:12:00* Test Item Value Reference Range Interpretation Comments Urine Ketones (test code = 79878-8) NEGATIVE NEGATIVE [facility] Fufzgsixqlyw9780-89-15 20:12:00* Test Item Value Reference Range Interpretation Comments Urine Urobilinogen (test code = 64296-0) 0.2 0.2-1 [facility] CenterUrine Vbgydqsmj4265-87-27 20:12:00* Test Item Value Reference Range Interpretation Comments Urine Bilirubin (test code = 1978-6) NEGATIVE NEGATIVE [facility] CenterUrine Jbmel3802-68-72 20:12:00* Test Item Value Reference Range Interpretation Comments Urine Blood (test code = 80267-5) MODERATE NEGATIVE [facility] CenterInfluenza Virus Types A,B Antigen 2019-05-06 19:44:00* Test Item Value Reference Range Interpretation Comments Influenza Virus Types A,B Antigen (test code = 41087-7) NEGATIVE NEGATIVE [facility] CenterInfluenza Virus Types A,B Antigen 2019-05-06 19:44:00* Test Item Value Reference Range Interpretation Comments Influenza Virus Types A,B Antigen (test code = 52698-7) NEGATIVE NEGATIVE [facility] CenterInfluenza Virus Types A,B Antigen 2019-05-06 19:44:00* Test Item Value Reference Range Interpretation Comments Influenza Virus Types A,B Antigen (test code = 53941-8) NEGATIVE NEGATIVE [facility] CenterLactic Acid Viceb8385-27-68 19:41:00* Test Item Value Reference Range Interpretation Comments Lactic Acid Level (test code = Lactic Acid Level) 0.8 0.5- 2.0 [facility] CenterCHEST 2 RGWZK7716-39-52 19:37:00 [facility] [address] [address] Patient Name: MANJIT LUO MR #: [id number] : 1980 Age/Sex: 38/M Req #: [id number] Adm Physician: Ordered by: JC CATES NP Report #: [id number] Location: ER Room/Bed: Procedure: [id number] DX/CHEST 2 VIEWS Exam Date: Exam Time: [...] TO: JC CATES NP Group A Streptococcus Qsdomw2287-95-98 19:35:00* Test Item Value Reference Range Interpretation Comments Group A Streptococcus Screen (test code = 86914-5) NEGATIVE NEG ATIVE [facility] CenterGroup A Streptococcus Wggvkr2863-00-60 19:35:00* Test Item Value Reference Range Interpretation Comments Group A Streptococcus Screen (test code = 28581-1) NEGATIVE NEG ATIVE [facility] CenterGroup A Streptococcus Ehssyb4805-60-23 19:35:00* Test Item Value Reference Range Interpretation Comments Group A Streptococcus Screen (test code = 83109-1) NEGATIVE NEG ATIVE [facility] CenterInfluenza virus A and B antigen identification by clyjbbuaoqfcdnhiko6188-43-25 19:03:00* Test Item Value Reference Range Interpretation Comments Influenza Virus Types A,B Antigen (test code = 83717-6) NEGATIVE NEGATIVE [facility] Hospitaltreptococcus pyogenes antigen detection in rvcbcw9460-38-52 19:03:00* Test Item Value Reference Range Interpretation Comments Group A Streptococcus Screen (test code = 08543-3) NEGATIVE NEG ATIVE [facility] CenterInfluenza virus A and B antigen identification by zhyvhmccffvpalppmk6905-57-04 19:03:00* Test Item Value Reference Range Interpretation Comments Influenza Virus Types A,B Antigen (test code = 60022-4) NEGATIVE NEGATIVE [facility] antigen detection in wzthoz1592-42-22 19:03:00* Test Item Value Reference Range Interpretation Comments Group A Streptococcus Screen (test code = 33143-3) NEGATIVE NEG ATIVE [facility] CenterFunction[facility] protein C6704-26-92 15:25:13* Test Item Value Reference Range Interpretation Comments Functional protein C (test code = 80435-9) 56 % 70-165 L Low Protein C Activity and prolonged Prothrombin time consistent with vitamin K deficiency, warfarin therapy or liver disease. Recommend repeating Protein C when PT is normal.Reviewed by Huan Keita MD, PhD. Lab Interpretation (test code = 69582-6) Abnormal [facility] protein D1057-07-78 10:14:15* Test Item Value Reference Range Interpretation Comments Functional protein S (test code = 85023-1) 91 % 74-160 Functional Protein S performed. If result is decreased Total and Free Protein S Antigen will be performed. [facility] scqvn2202-00-69 09:56:20* Test Item Value Reference Range Interpretation Comments Prothrombin time (test code = 5902-2) 15.9 11.5- 14.5 sec H INR (test code = 73998-8) 1.3 Th e International Normalized Ratio (INR) is a therapeutic monitoring tool for patients who are stable on oral anticoagulant therapy. An INR of 2.0-3.0 is suggested for deep vein thrombosis/pulmonary embolism. PTT (test code = 55978-5) 34.0 23.0- 36.0 sec PTT therapeutic range for unfractionated heparin is61.0-112.0 seconds which corresponds to Anti-Xa0.3-0.7 U/ml. PTT lupus anticoagulant (test code = 37121-6) 36.1 27.0- 38 .0 sec Lupus anticoagulant [...] instructions. The performance characteristics were determined by [facility] in a manner consistent with CLIA requirements. This test has not been cleared or approved by the U.S. Food and Drug Administration. Lab Interpretation (test code = 24795-4) Abnormal [facility] MethodistTB [id number]-[id number] 14:35:16* Test Item Value Reference Range Interpretation [...] NOT RECOMMENDED FOR USE WITH T=SPOT.TB TEST.Performed by:[facility] Molecular Tuberculosis Laboratory [facility] ([id number])[place], [place] [id number] [place], [place] [address]HSV type 1/2 combined Ab, CdM4896-54-36 13:16:14* Test Item Value Reference Range Interpretation Comments HSV 1/2 combined Ab, IgM (test code = 07028-9) 0.71 <=0.89 IV INTERPRETIVE INFORMATION: Herpes Simplex [...] for more than 12 months post-infection.Performed by [facility],[address] [place] [id number] wsi.[employer], Trung Boyer MD, Lab. Director [facility] CampusCytomegalovirus Ab, ImY1060-72-68 21:16:52* Test Item Value Reference Range Interpretation Comments Cytomegalovirus Ab, IgM (test code = 8982649) Negative Negative [facility] CampusHLA autologous rkvebaycce7409-06-60 20:52:48* Test Item Value Reference Range Interpretation Comments AXL source (test code = 5891) Peripheral Blood AXL current serum ID (test code = 5892) [id number] [facility] serum collection D&T (test code = 5893) 05/03/2019 08:30 AM AXL flow XM T cell result, current (test code = 5894) Negative AXL flow XM B cell result, current (test code = 5895) Negative Case number (test code = 9156396) [id number] HLA autologous crossmatch (test code = 1090) See link below for PDF Lab Report [facility] MethodistHomocystine, qbdjbm1129-97-26 12:03:28* Test Item Value Reference Range Interpretation Comments Homocysteine (test code = 22046-1) 17.5 umol/L 0-15 H The risk for coronary vascular disease increases progressively with homocysteine concentration. A 3.4 times greater risk is associated with a homocysteine concentration of greater than 15.8 umol/L as compared to a concentration below 14.1 umol/L. Lab Interpretation (test code = 23433-2) Abnormal [facility] MethodistHSV 1 & 2 glycoprotein G Ab, EcH1938-12-56 11:09:49* Test Item Value Reference Range Interpretation Comments HSV 1 glycoprotein G Ab, IgG (test code = 61134-9) Negative Neg ative Negative: No IgG antibodies to HSV1 detected. HSV 2 glycoprotein G Ab, IgG (test code = 58790-8) Negative Neg ative Negative: No IgG antibodies to HSV2 detected. [facility] MethodistCytomegalovirus Ab, ScO9726-73-07 11:09:11* Test Item Value Reference Range Interpretation Comments Cytomegalovirus Ab, IgG (test code = 32343-8) Positive Negative A Positive; IgG antibody to CMV detected which may indicateexposure to CMV infection. Lab Interpretation (test code = 25664-6) Abnormal [facility] MethodistEpstein-Vee virus antibody juon3744-02-13 11:08:37* Test Item Value Reference Range Interpretation Comments EBV Ab to viral capsid Ag, IgG (test code = 89295-8) Positive N egative A EBV Ab to viral capsid Ag, IgM (test code = 39364-0) Negative N egative EBV Ab to nuclear Ag, IgG (test code = 7883-2) Positive Negativ e A EBV Ab to early (D) Ag, IgG (test code = 81030-4) Negative Nega tive Helder-Vee virus antibody interpretation (test code = 5466) SEE C OMMENT Infection Status: Results may suggest past EBV infection. Lab Interpretation (test code = 37822-7) Abnormal [facility] MethodistParathyroid padfzet2570-21-63 10:15:05* Test Item Value Reference Range Interpretation Comments PTH (test code = 2731-8) 507 pg/mL 15-65 H Lab Interpretation (test code = 82222-1) Abnormal [facility] MethodistAntithrombin III uihej7234-06-95 10:06:44* Test Item Value Reference Range Interpretation Comments Antithrombin III (test code = 3174-0) 81 % 80-130 [facility] MethodistABORh - hevqfvujyl4518-97-54 09:58:00* Test Item Value Reference Range Interpretation Comments ABO grouping (test code = 883-9) O Rh type (test code = 61770-1) POS [facility] SsjwqvszySvkiqtvtff2658-52-10 09:52:47* Test Item Value Reference Range Interpretation Comments Fibrinogen (test code = 30586-0) 627 mg/dL 200-450 H Lab Interpretation (test code = 09218-2) Abnormal [facility] VhujidzuaJubpxoaslnq9547-39-42 09:41:25* Test Item Value Reference Range Interpretation Comments Cholesterol (test code = 2093-3) 86 mg/dL <200 [facility] MethodistCreatinine ytobh0564-53-00 09:41:25* Test Item Value Reference Range Interpretation Comments Creatinine (test code = 2160-0) 4.40 mg/dL 0.7-1.2 H Lab Interpretation (test code = 60170-5) Abnormal [facility] BygazzmijUVM5399-10-14 09:41:25* Test Item Value Reference Range Interpretation Comments LDH (test code = 77200-6) 235 U/L 87-225 H Lab Interpretation (test code = 82587-8) Abnormal [facility] GtelbgybqPfrlkdrrdqlkj6233-54-49 09:41:25* Test Item Value Reference Range Interpretation Comments Triglycerides (test code = 2571-8) 103 mg/dL <150 [facility] MethodistAmylase mauyn5921-51-21 09:41:24* Test Item Value Reference Range Interpretation Comments Amylase (test code = 1798-8) 46 U/L 28-100 [facility] MethodistGlucose yobfy3286-55-93 09:41:24* Test Item Value Reference Range Interpretation Comments Glucose (test code = 2345-7) 146 mg/dL 65-99 H Lab Interpretation (test code = 95457-2) Abnormal [facility] MethodistPhosphorus vwitx1587-80-46 09:41:24* Test Item Value Reference Range Interpretation Comments Phosphorus (test code = 2777-1) 4.6 mg/dL 2.4-4.5 H Lab Interpretation (test code = 17942-7) Abnormal [facility] MethodistCT Abdomen Pelvis Wo Kklisvcl1244-50-26 09:37:13Hm Interface, Radiology Results 05/03/2019 9:40 AM [...] inguinal lymph nodes, nonspecific though may be reactive.[id number] [facility] Methodsan [facility] centerXR Chest 2 Yw4925-81-36 09:36:57Hm Interface, Radiology Results - 05/03/2019 9:40 [...] demonstrate no definite abnormality.Negative examination.[facility]-3RC95941JBZyneers MethodistHGB OVO2582-93-19 16:24:00* Test Item Value Reference Range Interpretation Comments HEMOGLOBIN (test code = HGB) 8.1 gm/dL 13.0-17.0 L HEMATOCRIT (test code = HCT) 25.8 % 36.0-48.0 L REJPMJPD4742-39-19 16:47:00* Test Item Value Reference Range Interpretation Comments FERRITIN (test code = CHANELLE) 374 ng/mL 23.9-336.2 H HGB ZUL2490-93-77 15:41:00* Test Item Value Reference Range Interpretation Comments HEMOGLOBIN (test code = HGB) 8.0 gm/dL 13.0-17.0 L HEMATOCRIT (test code = HCT) 24.8 % 36.0-48.0 LL BASIC METABOLIC YJIHV5795-66-78 18:42:00* Test Item Value Reference Range Interpretation [...] code = CA) 6.3 mg/dl 8.0-10.5 L TSWWGKRHNUG3649-31-95 18:42:00* Test Item Value Reference Range Interpretation Comments PHOSPHOROUS (test code = PHOS) 6.1 mg/dl 2.5-4.9 H URIC TUOP8739-40-41 18:42:00* Test Item Value Reference Range Interpretation Comments URIC ACID (test code = URIC) 8.7 mg/dl 2.6-7.2 H ORFASAXNS7022-30-96 18:42:00* Test Item Value Reference Range Interpretation [...] = FESAT) 19 % 15-50 N URINALYSIS WSDAALZR4144-90-17 17:35:00* Test Item Value Reference Range Interpretation [...] code = BACU) MOD NONE UR PROTEIN/CREATININE BOFMP6002-35-12 17:35:00* Test Item Value Reference Range Interpretation Comments UR PROTEIN RESULT (test code = PROTU) 421.0 MG/DL 0-15.0 H UR CREATININE RESULT (test code = CREATU) 72.88 MG/DL 30-125 N PROTEIN/CREATININE RATIO (test code = P/CRATIO) 5.0 mg/g cre 0-200 N CBC W/AUTO ILYO5065-36-90 17:25:00* Test Item Value Reference Range Interpretation [...] = BA#) 0.0 K/mm3 0.0-0.2 N URINALYSIS ZNELFQZR4469-14-88 17:24:00* Test Item Value Reference Range Interpretation [...] code = BACU) MOD NONE UR PROTEIN/CREATININE WVWVA0559-15-24 17:24:00* Test Item Value Reference Range Interpretation Comments UR PROTEIN RESULT (test code = PROTU) MG/DL 0-15.0 UR CREATININE RESULT (test code = CREATU) MG/DL 30-125 PROTEIN/CREATININE RATIO (test code = P/CRATIO) mg/g cre 0-200 URINALYSIS TQKFYHHS7697-92-60 17:23:00* Test Item Value Reference Range Interpretation [...] (test code = BACU) NONE UR PROTEIN/CREATININE XGTOV4263-55-58 17:23:00* Test Item Value Reference Range Interpretation Comments UR PROTEIN RESULT (test code = PROTU) MG/DL 0-15.0 UR CREATININE RESULT (test code = CREATU) MG/DL 30-125 PROTEIN/CREATININE RATIO (test code = P/CRATIO) mg/g cre 0-200 Sodium Ploun7228-54-65 00:38:00* Test Item Value Reference Range Interpretation Comments Sodium Level (test code = 2951-2) 137 136-145 [facility] CenterPotassium Niikg5905-37-79 00:38:00* Test Item Value Reference Range Interpretation Comments Potassium Level (test code = 2823-3) 5.0 3.5-5.1 [facility] CenterChloride Qdkyo9254-18-61 00:38:00* Test Item Value Reference Range Interpretation Comments Chloride Level (test code = 2075-0) 116 98-107 H [facility] CenterCarbon Dioxide Fwcrw8803-91-58 00:38:00* Test Item Value Reference Range Interpretation Comments Carbon Dioxide Level (test code = 2028-9) 13 22-29 L [facility] CenterAnion Urf9729-13-21 00:38:00* Test Item Value Reference Range Interpretation Comments Anion Gap (test code = 25170-7) 13.0 8-16 [facility] CenterBlood Urea Lyuhenlg1957-43-34 00:38:00* Test Item Value Reference Range Interpretation Comments Blood Urea Nitrogen (test code = 3094-0) 42 7-26 H [facility] CenterCreatinine2020-01-27 00:38:00* Test Item Value Reference Range Interpretation Comments Creatinine (test code = 2160-0) 4.16 0.72-1.25 H [facility] CenterBUN/Creatinine Ctezs6495-74-41 00:38:00* Test Item Value Reference Range Interpretation Comments BUN/Creatinine Ratio (test code = 3097-3) 10 6-25 [facility] CenterEstimat Glomerular Filtration Rate 2019-03-21 00:38:00* Test Item Value Reference Range Interpretation Comments Estimat Glomerular Filtration Rate (test code = 635462883) 16 >60 L Ranges were taken from the National Kidney Disease Education Program and the [facility] Kidney Foundation literature.Reference ranges:60 or greater: Iestnp22-58 ( for 3 consecutive months): Chronic kidney disease 15 or less: Kidney failureCovenant Medical CenterGlucose Ibzna8485-64-40 00:38:00* Test Item Value Reference Range Interpretation Comments Glucose Level (test code = KHQ8076) 172 74-118 H [facility] CenterCalcium Uzltt6311-01-86 00:38:00* Test Item Value Reference Range Interpretation Comments Calcium Level (test code = 87766-0) 6.6 8.4-10.2 LL Results repeated and called to MICHAEL MONTGOMERY RN at 0037 on 03/21/19 by Wandy branch Read back and verified.[facility] CenterWhite Blood Cbeur7006-08-34 00:36:00* Test Item Value Reference Range Interpretation Comments White Blood Count (test code = 6690-2) 5.55 4.8-10.8 [facility] CenterRed Blood Qemwd8529-77-04 00:36:00* Test Item Value Reference Range Interpretation Comments Red Blood Count (test code = 789-8) 2.73 4.3-5.7 L [facility] CenterHemoglobin2020-01-27 00:36:00* Test Item Value Reference Range Interpretation Comments Hemoglobin (test code = 69750-4) 7.4 14.0-18.0 L [facility] CenterHematocrit2020-01-27 00:36:00* Test Item Value Reference Range Interpretation Comments Hematocrit (test code = 4544-3) 23.3 38.2-49.6 L [facility] CenterMean Corpuscular Qobmhy5023-30-88 00:36:00* Test Item Value Reference Range Interpretation Comments Mean Corpuscular Volume (test code = 787-2) 85.3 81-99 [facility] CenterMean Corpuscular Btvqeumnfh2638-13-45 00:36:00* Test Item Value Reference Range Interpretation Comments Mean Corpuscular Hemoglobin (test code = 785-6) 27.1 28-32 L [facility] CenterMean Corpuscular Hemoglobin Concent 2019-03-21 00:36:00* Test Item Value Reference Range Interpretation Comments Mean Corpuscular Hemoglobin Concent (test code = 786-4) 31.8 31-35 [facility] CenterRed Cell Distribution Bfybe0804-36-29 00:36:00* Test Item Value Reference Range Interpretation Comments Red Cell Distribution Width (test code = 49736-1) 14.7 11.7 -14.4 H [facility] CenterPlatelet Sdxbo9364-00-24 00:36:00* Test Item Value Reference Range Interpretation Comments Platelet Count (test code = 777-3) 187 140-360 [facility] CenterNeutrophils (%) (Auto)2019-03-21 00:36:00 * Test Item Value Reference Range Interpretation Comments Neutrophils (%) (Auto) (test code = 34855-1) 68.1 38.7-80.0 [facility] CenterLymphocytes (%) (Auto)2019-03-21 00:36:00 * Test Item Value Reference Range Interpretation Comments Lymphocytes (%) (Auto) (test code = 736-9) 19.8 18.0-39.1 [facility] CenterMonocytes (%) (Auto)2019-03-21 00:36:00* Test Item Value Reference Range Interpretation Comments Monocytes (%) (Auto) (test code = 5905-5) 9.2 4.4-11.3 [facility] CenterEosinophils (%) (Auto)2019-03-21 00:36:00 * Test Item Value Reference Range Interpretation Comments Eosinophils (%) (Auto) (test code = 713-8) 1.6 0.0-6.0 [facility] CenterBasophils (%) (Auto)2019-03-21 00:36:00* Test Item Value Reference Range Interpretation Comments Basophils (%) (Auto) (test code = 706-2) 0.4 0.0-1.0 [facility] CenterIM GRANULOCYTES %2019-03-21 00:36:00* Test Item Value Reference Range Interpretation Comments IM GRANULOCYTES % (test code = IM GRANULOCYTES %) 0.9 0.0- 1.0 [facility] CenterNeutrophils # (Auto)2019-03-21 00:36:00* Test Item Value Reference Range Interpretation Comments Neutrophils # (Auto) (test code = 751-8) 3.8 2.1-6.9 [facility] CenterLymphocytes # (Auto)2019-03-21 00:36:00* Test Item Value Reference Range Interpretation Comments Lymphocytes # (Auto) (test code = 23556-4) 1.1 1.0-3.2 [facility] CenterMonocytes # (Auto)2019-03-21 00:36:00* Test Item Value Reference Range Interpretation Comments Monocytes # (Auto) (test code = 742-7) 0.5 0.2-0.8 [facility] CenterEosinophils # (Auto)2019-03-21 00:36:00* Test Item Value Reference Range Interpretation Comments Eosinophils # (Auto) (test code = 711-2) 0.1 0.0-0.4 [facility] CenterBasophils # (Auto)2019-03-21 00:36:00* Test Item Value Reference Range Interpretation Comments Basophils # (Auto) (test code = 704-7) 0.0 0.0-0.1 [facility] CenterAbsolute Immature Granulocyte (auto 2019-03-21 00:36:00* Test Item Value Reference Range Interpretation Comments Absolute Immature Granulocyte (auto (shin t code = Absolute Immature Granulocyte (auto) 0.05 0-0.1 [facility] CenterUrine VGB7990-00-38 00:27:00* Test Item Value Reference Range Interpretation Comments Urine WBC (test code = 5821-4) >50 0-5 H [facility] CenterUrine UWT6636-82-19 00:27:00* Test Item Value Reference Range Interpretation Comments Urine RBC (test code = 98610-3) >50 0-5 H [facility] CenterUrine Klrsscfa8959-97-63 00:27:00* Test Item Value Reference Range Interpretation Comments Urine Bacteria (test code = 66961-5) MANY NONE [facility] Epithelial Xcugh3314-40-18 00:27:00 * Test Item Value Reference Range Interpretation Comments Urine Epithelial Cells (test code = 87619-6) FEW NONE [facility] CenterUrine Exyyg9485-43-85 00:19:00* Test Item Value Reference Range Interpretation Comments Urine Color (test code = 5778-6) REMEDIOS YELLOW [facility] IrvingU[facility] Orhxouy8800-37-54 00:19:00* Test Item Value Reference Range Interpretation Comments Urine Clarity (test code = 84673-6) CLOUDY CLEAR H [facility] CenterUrine Specific Jmmmenv5716-18-57 00:16:00 * Test Item Value Reference Range Interpretation Comments Urine Specific Hertel (test code = 5811-5) 1.025 1.010-1.02 5 [facility] CenterUrine hT7764-79-14 00:16:00* Test Item Value Reference Range Interpretation Comments Urine pH (test code = 77429-1) 6.5 5-7 [facility] CenterUrine Leukocyte Wvthybdr4620-21-88 00:16:00* Test Item Value Reference Range Interpretation Comments Urine Leukocyte Esterase (test code = 5799-2) 2+ NEGATIVE [facility] Irving[facility] Elxeqxc2755-82-13 00:16:00* Test Item Value Reference Range Interpretation Comments Urine Nitrite (test code = 10862-4) POSITIVE NEGATIVE [facility] IrvingUrine Vieleur3509-76-82 00:16:00* Test Item Value Reference Range Interpretation Comments Urine Protein (test code = 5804-0) 3+ NEGATIVE H [facility] CenterUrine Glucose (UA)2019-03-21 00:16:00* Test Item Value Reference Range Interpretation Comments Urine Glucose (UA) (test code = 2349-9) 1+ NEGATIVE H [facility] CenterUrine Mvfqmhv1367-08-71 00:16:00* Test Item Value Reference Range Interpretation Comments Urine Ketones (test code = 76118-9) NEGATIVE NEGATIVE [facility] Nsvmmzsythai6057-71-95 00:16:00* Test Item Value Reference Range Interpretation Comments Urine Urobilinogen (test code = 18405-7) 0.2 0.2-1 [facility] CenterUrine Uaomlwupm5841-37-34 00:16:00* Test Item Value Reference Range Interpretation Comments Urine Bilirubin (test code = 1978-6) NEGATIVE NEGATIVE [facility] Cmede9996-16-68 00:16:00* Test Item Value Reference Range Interpretation Comments Urine Blood (test code = 93617-6) 4+ NEGATIVE H [facility] Ztfwglj6353-40-23 11:47:00* Test Item Value Reference Range Interpretation Comments Bedside Glucose (test code = 39327-2) 113 70-120 Meter ID: [id number] Health Hospital Glucose 2019-02-20 11:47:00* Test Item Value Reference Range Interpretation Comments Bedside Glucose (test code = 04029-8) 113 70-120 Meter ID: [id number] Health [facility] Hospitalodium Level 2019-02-19 12:01:00* Test Item Value Reference Range Interpretation Comments Sodium Level (test code = 2951-2) 135 136-145 L [facility] CenterPotassium Sddiv8728-21-37 12:01:00* Test Item Value Reference Range Interpretation Comments Potassium Level (test code = 2823-3) 4.4 3.5-5.1 [facility] CenterChloride Ouidm4883-23-21 12:01:00* Test Item Value Reference Range Interpretation Comments Chloride Level (test code = 2075-0) 107 98-107 [facility] CenterCarbon Dioxide Ehjzo1165-80-58 12:01:00* Test Item Value Reference Range Interpretation Comments Carbon Dioxide Level (test code = 2028-9) 22 22-29 [facility] CenterAnion Wby5024-60-29 12:01:00* Test Item Value Reference Range Interpretation Comments Anion Gap (test code = 11901-6) 10.4 8-16 [facility] CenterBlood Urea Acuzwsil7522-71-05 12:01:00* Test Item Value Reference Range Interpretation Comments Blood Urea Nitrogen (test code = 3094-0) 28 7-26 H [facility] CenterCreatinine2019-12-28 12:01:00* Test Item Value Reference Range Interpretation Comments Creatinine (test code = 2160-0) 3.39 0.72-1.25 H [facility] CenterBUN/Creatinine Ibmon9217-19-39 12:01:00* Test Item Value Reference Range Interpretation Comments BUN/Creatinine Ratio (test code = 3097-3) 8 6-25 [facility] CenterEstimat Glomerular Filtration Rate 2019-02-19 12:01:00* Test Item Value Reference Range Interpretation Comments Estimat Glomerular Filtration Rate (test code = 659663745) 20 >60 L Ranges were taken from the National Kidney Disease Education Program and the [facility] Kidney Foundation literature.Reference ranges:60 or greater: Itnylw18-83 ( for 3 consecutive months): Chronic kidney disease 15 or less: Kidney failureCovenant Medical CenterGlucose Uwgaw8591-76-40 12:01:00* Test Item Value Reference Range Interpretation Comments Glucose Level (test code = UPQ1099) 158 74-118 H [facility] CenterCalcium Wiovg5902-59-67 12:01:00* Test Item Value Reference Range Interpretation Comments Calcium Level (test code = 58782-7) 7.2 8.4-10.2 L [facility] CenterWhite Blood Caylv9826-94-89 11:43:00* Test Item Value Reference Range Interpretation Comments White Blood Count (test code = 6690-2) 3.62 4.8-10.8 L [facility] CenterRed Blood Pqmtj4113-67-71 11:43:00* Test Item Value Reference Range Interpretation Comments Red Blood Count (test code = 789-8) 2.84 4.3-5.7 L [facility] CenterHemoglobin2019-12-28 11:43:00* Test Item Value Reference Range Interpretation Comments Hemoglobin (test code = 24648-4) 7.5 14.0-18.0 L [facility] CenterHematocrit2019-12-28 11:43:00* Test Item Value Reference Range Interpretation Comments Hematocrit (test code = 4544-3) 23.2 38.2-49.6 L [facility] CenterMean Corpuscular Gcjpuu1632-58-42 11:43:00* Test Item Value Reference Range Interpretation Comments Mean Corpuscular Volume (test code = 787-2) 81.7 81-99 [facility] CenterMean Corpuscular Faggeisfcq7795-10-78 11:43:00* Test Item Value Reference Range Interpretation Comments Mean Corpuscular Hemoglobin (test code = 785-6) 26.4 28-32 L [facility] CenterMean Corpuscular Hemoglobin Concent 2019-02-19 11:43:00* Test Item Value Reference Range Interpretation Comments Mean Corpuscular Hemoglobin Concent (test code = 786-4) 32.3 31-35 [facility] CenterRed Cell Distribution Luuph8131-52-38 11:43:00* Test Item Value Reference Range Interpretation Comments Red Cell Distribution Width (test code = 17038-0) 15.9 11.7 -14.4 H [facility] CenterPlatelet Wpivl3716-93-83 11:43:00* Test Item Value Reference Range Interpretation Comments Platelet Count (test code = 777-3) 95 140-360 L [facility] CenterNeutrophils (%) (Auto)2019-02-19 11:43:00 * Test Item Value Reference Range Interpretation Comments Neutrophils (%) (Auto) (test code = 46977-9) 57.5 38.7-80.0 [facility] CenterLymphocytes (%) (Auto)2019-02-19 11:43:00 * Test Item Value Reference Range Interpretation Comments Lymphocytes (%) (Auto) (test code = 736-9) 30.9 18.0-39.1 [facility] CenterMonocytes (%) (Auto)2019-02-19 11:43:00* Test Item Value Reference Range Interpretation Comments Monocytes (%) (Auto) (test code = 5905-5) 6.9 4.4-11.3 [facility] CenterEosinophils (%) (Auto)2019-02-19 11:43:00 * Test Item Value Reference Range Interpretation Comments Eosinophils (%) (Auto) (test code = 713-8) 3.3 0.0-6.0 [facility] CenterBasophils (%) (Auto)2019-02-19 11:43:00* Test Item Value Reference Range Interpretation Comments Basophils (%) (Auto) (test code = 706-2) 0.3 0.0-1.0 [facility] CenterIM GRANULOCYTES %2019-02-19 11:43:00* Test Item Value Reference Range Interpretation Comments IM GRANULOCYTES % (test code = IM GRANULOCYTES %) 1.1 0.0- 1.0 H [facility] CenterNeutrophils # (Auto)2019-02-19 11:43:00* Test Item Value Reference Range Interpretation Comments Neutrophils # (Auto) (test code = 751-8) 2.1 2.1-6.9 [facility] CenterLymphocytes # (Auto)2019-02-19 11:43:00* Test Item Value Reference Range Interpretation Comments Lymphocytes # (Auto) (test code = 28702-9) 1.1 1.0-3.2 [facility] CenterMonocytes # (Auto)2019-02-19 11:43:00* Test Item Value Reference Range Interpretation Comments Monocytes # (Auto) (test code = 742-7) 0.3 0.2-0.8 [facility] CenterEosinophils # (Auto)2019-02-19 11:43:00* Test Item Value Reference Range Interpretation Comments Eosinophils # (Auto) (test code = 711-2) 0.1 0.0-0.4 [facility] CenterBasophils # (Auto)2019-02-19 11:43:00* Test Item Value Reference Range Interpretation Comments Basophils # (Auto) (test code = 704-7) 0.0 0.0-0.1 [facility] CenterAbsolute Immature Granulocyte (auto 2019-02-19 11:43:00* Test Item Value Reference Range Interpretation Comments Absolute Immature Granulocyte (auto (shin t code = Absolute Immature Granulocyte (auto) 0.04 0-0.1 [facility] Ldbldpz4393-51-30 07:44:00* Test Item Value Reference Range Interpretation Comments Urine Culture (test code = 630-4) No Result Data Provided [facility]2019-12-28 07:44:00* Test Item Value Reference Range Interpretation Comments Urine Culture (test code = 630-4) No Result Data Provided [facility]2019-12-28 07:44:00* Test Item Value Reference Range Interpretation Comments Urine Culture (test code = 630-4) No Result Data Provided [facility]2019-12-28 07:44:00* Test Item Value Reference Range Interpretation Comments Urine Culture (test code = 630-4) No Result Data Provided [facility]2019-12-28 07:44:00* Test Item Value Reference Range Interpretation Comments Urine Culture (test code = 630-4) No Result Data Provided [facility] CenterNEPH [facility]BE REMOV[facility] W/FL TMFRK1726-97-07 15:39:00 [place] [address] Patient Name: MANJIT LUO MR #: [id number] : 1980 Age/Sex: 38/M Req #: [id number] Adm Physician: CASTRO JALLOH MD Ordered by: CASTRO JALLOH MD Report #: [id number] Location: MED/SURG Room/Bed: 110-1 Procedure: [id number] IR/NE PH TUBE REMOVAL W/FL RIGHT Exam [...] GUALLPA MD 40 Transcribed By: TIFFANY on 02/18/191 COPY TO: CASTRO JALLOH MD Ncwcsapv7834-75-34 07:06:00* Test Item Value Reference Range Interpretation Comments Ferritin (test code = 2276-4) 23.96 21.81-274.66 [facility] CenterFerritin2019-12-27 07:06:00* Test Item Value Reference Range Interpretation Comments Ferritin (test code = 2276-4) 23.96 21.81-274.66 [facility] Rldhuwr5813-24-76 06:39:00* Test Item Value Reference Range Interpretation Comments Ionized Calcium (test code = 67328-8) 1.0 1.09-1.30 L [facility] Tdiigku6930-80-75 06:39:00* Test Item Value Reference Range Interpretation Comments Ionized Calcium (test code = 28255-8) 1.0 1.09-1.30 L [facility] CenterIonized Behbshj1095-28-60 06:39:00* Test Item Value Reference Range Interpretation Comments Ionized Calcium (test code = 74181-7) 1.0 1.09-1.30 L [facility] CenterIonized Azltejg9814-00-78 06:39:00* Test Item Value Reference Range Interpretation Comments Ionized Calcium (test code = 49062-9) 1.0 1.09-1.30 L [facility] CenterIonized Zqaepdx9263-88-15 06:39:00* Test Item Value Reference Range Interpretation Comments Ionized Calcium (test code = 35593-8) 1.0 1.09-1.30 L [facility] CenterPhosphorus Zgtzr6207-03-80 08:27:00* Test Item Value Reference Range Interpretation Comments Phosphorus Level (test code = PSQ4707) 4.3 2.3-4.7 [facility] CenterAlbumin2019-12-26 08:27:00* Test Item Value Reference Range Interpretation Comments Albumin (test code = 1751-7) 2.4 3.5-5.0 L [facility] CenterPhosphorus Hbbvi1878-75-33 08:27:00* Test Item Value Reference Range Interpretation Comments Phosphorus Level (test code = AZL5834) 4.3 2.3-4.7 [facility] CenterAlbumin2019-12-26 08:27:00* Test Item Value Reference Range Interpretation Comments Albumin (test code = 1751-7) 2.4 3.5-5.0 L [facility] CenterUrine Kbyft9987-80-84 10:43:00* Test Item Value Reference Range Interpretation Comments Urine Color (test code = 5778-6) REMEDIOS YELLOW H [facility] CenterUrine Mzcedao4531-90-17 10:43:00* Test Item Value Reference Range Interpretation Comments Urine Clarity (test code = 21697-7) CLOUDY CLEAR H [facility] CenterUrine Specific Nhndzls4899-57-68 10:43:00 * Test Item Value Reference Range Interpretation Comments Urine Specific Hertel (test code = 5811-5) 1.020 1.010-1.02 5 [facility] CenterUrine vR3731-52-32 10:43:00* Test Item Value Reference Range Interpretation Comments Urine pH (test code = 60347-0) 6.5 5-7 [facility] CenterUrine Leukocyte Bujpkrsw5681-00-79 10:43:00* Test Item Value Reference Range Interpretation Comments Urine Leukocyte Esterase (test code = 5799-2) MODERATE NEGATIVE [facility] Frdzrgr7288-74-62 10:43:00* Test Item Value Reference Range Interpretation Comments Urine Nitrite (test code = 60444-1) NEGATIVE NEGATIVE [facility] Utnbhxp2929-15-21 10:43:00* Test Item Value Reference Range Interpretation Comments Urine Protein (test code = 5804-0) 2+ NEGATIVE H [facility] Glucose (UA)2019-02-16 10:43:00* Test Item Value Reference Range Interpretation Comments Urine Glucose (UA) (test code = 2349-9) NEGATIVE NEGATIVE [facility] Uloudqb5335-67-08 10:43:00* Test Item Value Reference Range Interpretation Comments Urine Ketones (test code = 93914-6) NEGATIVE NEGATIVE [facility] Praueshiucxo0635-74-43 10:43:00* Test Item Value Reference Range Interpretation Comments Urine Urobilinogen (test code = 54671-5) 0.2 0.2-1 [facility] CenterUrine Dcxkyiknt3928-57-52 10:43:00* Test Item Value Reference Range Interpretation Comments Urine Bilirubin (test code = 1978-6) SMALL NEGATIVE [facility] Ixrky0471-50-55 10:43:00* Test Item Value Reference Range Interpretation Comments Urine Blood (test code = 00111-7) NEGATIVE NEGATIVE [facility] CenterU[facility] DYV5672-26-75 10:43:00* Test Item Value Reference Range Interpretation Comments Urine WBC (test code = 5821-4) 0-5 0-5 [facility] CenterU[facility] HMF6749-50-55 10:43:00* Test Item Value Reference Range Interpretation Comments Urine RBC (test code = 75554-0) 0-5 0-5 [facility] CenterUrine Owhhuqkq2204-91-21 10:43:00* Test Item Value Reference Range Interpretation Comments Urine Bacteria (test code = 57156-3) RARE NONE [facility] CenterUrine Epithelial Dorik2429-88-97 10:43:00 * Test Item Value Reference Range Interpretation Comments Urine Epithelial Cells (test code = 99183-9) FEW NONE [facility] CenterBacterial urine zpytwpw6328-71-02 09:30:00* Test Item Value Reference Range Interpretation Comments Urine Culture (test code = 630-4) STAPHYLOCOCCUS AUREUS [facility] CenterBacteria urine ovfphkv2197-53-33 09:30:00* Test Item Value Reference Range Interpretation Comments Urine Culture (test code = 630-4) STAPHYLOCOCCUS AUREUS [facility] CenterMagnesium Pnufa1002-06-40 06:58:00* Test Item Value Reference Range Interpretation Comments Magnesium Level (test code = 50812-7) 1.3 1.3-2.1 [facility] CenterMagnesium Dbkwf3942-06-59 06:58:00* Test Item Value Reference Range Interpretation Comments Magnesium Level (test code = 88283-7) 1.3 1.3-2.1 [facility] CenterMagnesium Eikda8833-95-85 06:58:00* Test Item Value Reference Range Interpretation Comments Magnesium Level (test code = 64358-8) 1.3 1.3-2.1 [facility] CenterIR WTQDVJM1591-71-45 16:41:00 [place] [address] Patient Name: MANJIT LUO MR #: [id number] : 1980 Age/Sex: 38/M Req #: [id number] Adm Physician: CASTRO JALLOH MD Ordered by: CASTRO JALLOH MD Report #: [id number] Location: MED/SURG Room/Bed: 110-1 Procedure: [id number] DX/IR CONSULT Exam Date: Exam Time: REPORT STATUS: Signed PROCEDURE: Genitourinary cath eter placement Procedural Personnel Attending physician(s): Umu Mondragon Fellow physician(s): None Resident physician(s): None Advanced practice provider(s): None Pre-procedure diagnosis: Ureteral obstruction Post-proc edure diagnosis: Same Indication: Urinary obstruction Catheter(s) placed bec ause the previous catheter(s) became dislodged within 30 days of placement (TABITHA DR): No Additional clinical history: None Complications: No [...] urology. PROCEDURE SUMMARY - Target organ: Unilateral [place] kidney - Image-guided placement of genitour inary [...] TO: CASTRO JALLOH MD NEPHRO/URET W IMG/INJ-NEW FLQ6416-49-73 16:41:00 [place] [address] Patient Name: MANJIT LUO MR #: [id number] : 1980 Age/Sex: 38/M Req #: [id number] [facility] Physician: CASTRO JALLOH MD Ordered by: CASTRO JALLOH MD Report #: [id number] Location: MED/SURG Room/Bed: [place] Procedure: [id number] IR/NE PHRO/URET W IMG/INJ-NEW ACC Exam Date: [...] urology. PROCEDURE SUMMARY - Target organ: Unilateral [place] kidney - Image-guided pl acement of genitourinary [...] MD 45 COPY TO: BLANCA JALLOH MD GUIDANCE FOR DYTQKHVXS2186-45-53 16:41:00 [facility] [address] [place] [address] Patient Name: MANJIT LUO MR #: [id number] : 1980 Age/Sex: 38/M Req #: [id number] [facility] Physician: CASTRO JALLOH MD Ordered by: CASTRO JALLOH MD Report #: [id number] Location: MED/SURG Room/Bed: [place] Procedure: [id number] US/US GUIDANCE FOR PROCEDURE Exam Date: 02/15/19 Exam Cm e: 4217 REPORT STATUS: Signed DE OCEDURE: Genitourinary catheter placement Procedural Personnel Attending [...] __ PROCEDURE SUMMARY - Target organ: Unilateral [place] kidney - Image-g uided placement of genitourinary catheter(s) - Additional procedure(s): None PROCEDURE DETAILS: Pre-procedure Consent: Informed consent for the pr ocedure including risks, benefits and alternatives was obtained and time-out w as performed prior to the procedure. Preparation: The site was prepared and dr aped using maximal sterile barrier technique including cutaneous [...] 02/15/191645 COPY TO: CASTRO CESPEDES MD Prothrombin Sjxx3909-43-53 16:06:00* Test Item Value Reference Range Interpretation Comments Prothrombin Time (test code = 5902-2) 14.4 11.9-14.5 [facility] CenterProthromb Time International Ratio 2019-02-15 16:06:00* Test Item Value Reference Range Interpretation Comments Prothromb Time International Ratio (test code = 6301-6) 1.07 Oral Anticoagulant Therapy INR Values:1. Low Intensity Therapy 1.5 - 2.02 . Moderate Intensity Therapy 2.0 - 3.03. High Intensity Therapy(1) 2.5 - 3. 54. High Intensity Therapy(2) 3.0 - 4.05. Panic Value INR > 5.0 [facility] CenterActivated Partial Thromboplast Time 2019-02-15 16:06:00* Test Item Value Reference Range Interpretation Comments Activated Partial Thromboplast Time (test code = 86051-7) 32.7 23.8-35.5 [facility] CenterProthrombin Bmdx0475-37-32 16:06:00* Test Item Value Reference Range Interpretation Comments Prothrombin Time (test code = 5902-2) 14.4 11.9-14.5 [facility] CenterProthromb Time International Ratio 2019-02-15 16:06:00* Test Item Value Reference Range Interpretation Comments Prothromb Time International Ratio (test code = 6301-6) 1.07 Oral Anticoagulant Therapy INR Values:1. Low Intensity Therapy 1.5 - 2.02 . Moderate Intensity Therapy 2.0 - 3.03. High Intensity Therapy(1) 2.5 - 3. 54. High Intensity Therapy(2) 3.0 - 4.05. Panic Value INR > 5.0 [facility] CenterActivated Partial Thromboplast Time 2019-02-15 16:06:00* Test Item Value Reference Range Interpretation Comments Activated Partial Thromboplast Time (test code = 22684-9) 32.7 23.8-35.5 [facility] CenterAct[facility] Partial Thromboplast Time 2019-02-15 16:06:00* Test Item Value Reference Range Interpretation Comments Activated Partial Thromboplast Time (test code = 43271-3) 32.7 23.8-35.5 [facility] CenterAct[facility] Partial Thromboplast Time 2019-02-15 16:06:00* Test Item Value Reference Range Interpretation Comments Activated Partial Thromboplast Time (test code = 46256-8) 32.7 23.8-35.5 [facility] CenterActivated Partial Thromboplast Time 2019-02-15 16:06:00* Test Item Value Reference Range Interpretation Comments Activated Partial Thromboplast Time (test code = 42245-1) 32.7 23.8-35.5 [facility] CenterActivated partial thromboplastin time (aPTT) in platelet poor plasma by coagulation muutj1165-41-34 14:23:00* Test Item Value Reference Range Interpretation Comments Activated Partial Thromboplast Time (test code = 46352-4) 32.7 23.8-35.5 [facility] CenterRENAL SCAN W/GOOYH4189-13-42 18:29:00 [place] [address] Patient Name: MANJIT LUO MR #: [id number] : 1980 Age/Sex: 38/M Req #: [id number] Adm Physician: Ordered by: CASTRO JALLOH MD Report #: [id number] Location: NC Room/Bed: Procedure: [id number] NM/RE NAL SCAN W/LASIX Exam Date: 01/14/19 [...] COPY TO: CASTRO JALLOH MD ABDOMEN 2 IKMA9600-10-84 11:34:00 [place] [address] Patient Name: MANJIT LUO MR #: [id number] : 1980 Age/Sex: 38/M Req #: [id number] Adm Physician: Ordered by: LUZ MARINA CURRIE MD Report #: [id number] Location: ER Room/Bed: Procedure: [id number] 2 DX/ABDOMEN [...] LUZ MARINA CURRIE MD Differential Total Cells Uspfpgq5467-42-71 11:23:00* Test Item Value Reference Range Interpretation Comments Differential Total Cells Counted (test code = Brian pro Total Cells Counted) 100 [facility] CenterNeutrophils % (Manual)2018-11-11 11:23:00 * Test Item Value Reference Range Interpretation Comments Neutrophils % (Manual) (test code = 09069-0) 74 40-74 [facility] CenterLymphocytes % (Manual)2018-11-11 11:23:00 * Test Item Value Reference Range Interpretation Comments Lymphocytes % (Manual) (test code = 737-7) 19 19-48 [facility] CenterMonocytes % (Manual)2018-11-11 11:23:00* Test Item Value Reference Range Interpretation Comments Monocytes % (Manual) (test code = 744-3) 5 3.4-9.0 [facility] CenterEosinophils % (Manual)2018-11-11 11:23:00 * Test Item Value Reference Range Interpretation Comments Eosinophils % (Manual) (test code = 714-6) 2 0-7 [facility] CenterPlatelet Ekrhavkf4694-71-77 11:23:00* Test Item Value Reference Range Interpretation Comments Platelet Estimate (test code = 16237-7) MODERATELY DECREASED [facility] CenterPlatelet Morphology Ejmvmcm4583-71-31 11:23:00* Test Item Value Reference Range Interpretation Comments Platelet Morphology Comment (test code = 89736-9) FEW LARGE NO PLT CLUMPSCovenant Medical CenterRed Cell Morphology Comment 2018-11-11 11:23:00* Test Item Value Reference Range Interpretation Comments Red Cell Morphology Comment (test code = 6742-1) NORMAL [facility] CenterDifferential Total Cells Counted 2018-11-11 11:23:00* Test Item Value Reference Range Interpretation Comments Differential Total Cells Counted (test code = Differen tial Total Cells Counted) 100 [facility] CenterNeutrophils % (Manual)2018-11-11 11:23:00 * Test Item Value Reference Range Interpretation Comments Neutrophils % (Manual) (test code = 39596-5) 74 40-74 [facility] CenterLymphocytes % (Manual)2018-11-11 11:23:00 * Test Item Value Reference Range Interpretation Comments Lymphocytes % (Manual) (test code = 737-7) 19 19-48 [facility] CenterMonocytes % (Manual)2018-11-11 11:23:00* Test Item Value Reference Range Interpretation Comments Monocytes % (Manual) (test code = 744-3) 5 3.4-9.0 [facility] CenterEosinophils % (Manual)2018-11-11 11:23:00 * Test Item Value Reference Range Interpretation Comments Eosinophils % (Manual) (test code = 714-6) 2 0-7 [facility] CenterPlatelet Zcxidzkv4366-78-08 11:23:00* Test Item Value Reference Range Interpretation Comments Platelet Estimate (test code = 64733-6) MODERATELY DECREASED [facility] CenterPlatelet Morphology Flthfyf2186-85-25 11:23:00* Test Item Value Reference Range Interpretation Comments Platelet Morphology Comment (test code = 61427-7) FEW LARGE NO PLT CLUMPSCovenant Medical CenterRed Cell Morphology Comment 2018-11-11 11:23:00* Test Item Value Reference Range Interpretation Comments Red Cell Morphology Comment (test code = 6742-1) NORMAL [facility] CenterDifferential Total Cells Counted 2018-11-11 11:23:00* Test Item Value Reference Range Interpretation Comments Differential Total Cells Counted (test code = Differen tial Total Cells Counted) 100 [facility] CenterNeutrophils % (Manual)2018-11-11 11:23:00 * Test Item Value Reference Range Interpretation Comments Neutrophils % (Manual) (test code = 78232-3) 74 40-74 [facility] CenterLymphocytes % (Manual)2018-11-11 11:23:00 * Test Item Value Reference Range Interpretation Comments Lymphocytes % (Manual) (test code = 737-7) 19 - [facility] CenterMonocytes % (Manual)2018-11-11 11:23:00* Test Item Value Reference Range Interpretation Comments Monocytes % (Manual) (test code = 744-3) 5 3.4-9.0 [facility] CenterEosinophils % (Manual)2018-11-11 11:23:00 * Test Item Value Reference Range Interpretation Comments Eosinophils % (Manual) (test code = 714-6) 2 0-7 [facility] CenterPlatelet Sbagxcot9113-34-85 11:23:00* Test Item Value Reference Range Interpretation Comments Platelet Estimate (test code = 67065-3) MODERATELY DECREASED [facility] CenterPlatelet Morphology Kjfprmw9014-88-08 11:23:00* Test Item Value Reference Range Interpretation Comments Platelet Morphology Comment (test code = 03327-0) FEW LARGE NO PLT CLUMPSCovenant Medical CenterRed Cell Morphology Comment 2018-11-11 11:23:00* Test Item Value Reference Range Interpretation Comments Red Cell Morphology Comment (test code = 6742-1) NORMAL [facility] CenterDifferential Total Cells Counted 2018-11-11 11:23:00* Test Item Value Reference Range Interpretation Comments Differential Total Cells Counted (test code = Differomar tial Total Cells Counted) 100 [facility] CenterNeutrophils % (Manual)2018-11-11 11:23:00 * Test Item Value Reference Range Interpretation Comments Neutrophils % (Manual) (test code = 57898-3) 74 40-74 [facility] CenterLymphocytes % (Manual)2018-11-11 11:23:00 * Test Item Value Reference Range Interpretation Comments Lymphocytes % (Manual) (test code = 737-7) [facility] CenterMonocytes % (Manual)2018-11-11 11:23:00* Test Item Value Reference Range Interpretation Comments Monocytes % (Manual) (test code = 744-3) 5 3.4-9.0 [facility] CenterEosinophils % (Manual)2018-11-11 11:23:00 * Test Item Value Reference Range Interpretation Comments Eosinophils % (Manual) (test code = 714-6) 2 0-7 [facility] CenterPlatelet Mlouibpj6293-25-06 11:23:00* Test Item Value Reference Range Interpretation Comments Platelet Estimate (test code = 10538-5) MODERATELY DECREASED [facility] CenterPlatelet Morphology Zsjdhid2368-78-36 11:23:00* Test Item Value Reference Range Interpretation Comments Platelet Morphology Comment (test code = 99718-0) FEW LARGE NO PLT CLUMPSCovenant Medical CenterRed Cell Morphology Comment 2018-11-11 11:23:00* Test Item Value Reference Range Interpretation Comments Red Cell Morphology Comment (test code = 6742-1) NORMAL [facility] CenterDifferential Total Cells Counted 2018-11-11 11:23:00* Test Item Value Reference Range Interpretation Comments Differential Total Cells Counted (test code = Differomar tial Total Cells Counted) 100 [facility] CenterNeutrophils % (Manual)2018-11-11 11:23:00 * Test Item Value Reference Range Interpretation Comments Neutrophils % (Manual) (test code = 77477-5) 74 40-74 [facility] CenterLymphocytes % (Manual)2018-11-11 11:23:00 * Test Item Value Reference Range Interpretation Comments Lymphocytes % (Manual) (test code = 737-7) 19 19-48 [facility] CenterMonocytes % (Manual)2018-11-11 11:23:00* Test Item Value Reference Range Interpretation Comments Monocytes % (Manual) (test code = 744-3) 5 3.4-9.0 [facility] CenterEosinophils % (Manual)2018-11-11 11:23:00 * Test Item Value Reference Range Interpretation Comments Eosinophils % (Manual) (test code = 714-6) 2 0-7 [facility] CenterPlatelet Oohurvls0090-41-09 11:23:00* Test Item Value Reference Range Interpretation Comments Platelet Estimate (test code = 50597-4) MODERATELY DECREASED [facility] CenterPlatelet Morphology Jbftklf1132-60-99 11:23:00* Test Item Value Reference Range Interpretation Comments Platelet Morphology Comment (test code = 51253-8) FEW LARGE NO PLT CLUMPSCHI [facility] HospitalRed Cell Morphology Comment 2018-11-11 11:23:00* Test Item Value Reference Range Interpretation Comments Red Cell Morphology Comment (test code = 6742-1) NORMAL [facility] CenterDifferential Total Cells Counted 2018-11-11 11:23:00* Test Item Value Reference Range Interpretation Comments Differential Total Cells Counted (test code = Differomar tial Total Cells Counted) 100 [facility] CenterNeutrophils % (Manual)2018-11-11 11:23:00 * Test Item Value Reference Range Interpretation Comments Neutrophils % (Manual) (test code = 67875-2) 74 40-74 [facility] CenterLymphocytes % (Manual)2018-11-11 11:23:00 * Test Item Value Reference Range Interpretation Comments Lymphocytes % (Manual) (test code = 737-7) 19 19-48 [facility] CenterMonocytes % (Manual)2018-11-11 11:23:00* Test Item Value Reference Range Interpretation Comments Monocytes % (Manual) (test code = 744-3) 5 3.4-9.0 [facility] CenterEosinophils % (Manual)2018-11-11 11:23:00 * Test Item Value Reference Range Interpretation Comments Eosinophils % (Manual) (test code = 714-6) 2 0-7 [facility] CenterPlatelet Tkdnfyrf9723-44-18 11:23:00* Test Item Value Reference Range Interpretation Comments Platelet Estimate (test code = 33274-5) MODERATELY DECREASED [facility] CenterPlatelet Morphology Ymxbgmk6784-74-89 11:23:00* Test Item Value Reference Range Interpretation Comments Platelet Morphology Comment (test code = 97626-8) FEW LARGE NO PLT CLUMPSCovenant Medical CenterRed Cell Morphology Comment 2018-11-11 11:23:00* Test Item Value Reference Range Interpretation Comments Red Cell Morphology Comment (test code = 6742-1) NORMAL [facility] CenterUrine PPR3926-30-37 08:27:00* Test Item Value Reference Range Interpretation Comments Urine WBC (test code = 5821-4) 21-50 0-5 H [facility] CenterUrine OLD5334-56-34 08:27:00* Test Item Value Reference Range Interpretation Comments Urine RBC (test code = 67090-1) 21-50 0-5 H [facility] CenterUrine Yinvdsgc3447-22-90 08:27:00* Test Item Value Reference Range Interpretation Comments Urine Bacteria (test code = 96374-3) RARE NONE [facility] CenterUrine Epithelial Tzrrt1301-35-08 08:27:00 * Test Item Value Reference Range Interpretation Comments Urine Epithelial Cells (test code = 97957-5) FEW NONE [facility] CenterUrine Lqfoc1280-25-92 08:20:00* Test Item Value Reference Range Interpretation Comments Urine Color (test code = 5778-6) YELLOW YELLOW [facility] CenterUrine Olhjjln0912-48-79 08:20:00* Test Item Value Reference Range Interpretation Comments Urine Clarity (test code = 86805-3) SL CLOUDY CLEAR H [facility] CenterUrine Specific Nciltnm4594-29-46 08:20:00 * Test Item Value Reference Range Interpretation Comments Urine Specific Hertel (test code = 5811-5) 1.025 1.010-1.02 5 [facility] CenterUrine kM0204-01-46 08:20:00* Test Item Value Reference Range Interpretation Comments Urine pH (test code = 08163-6) 6 5-7 [facility] CenterUrine Leukocyte Nfjcyyrh2590-21-31 08:20:00* Test Item Value Reference Range Interpretation Comments Urine Leukocyte Esterase (test code = 46977-1) TRACE NEGATIV E H [facility] CenterUrine Gugfbwb2009-52-90 08:20:00* Test Item Value Reference Range Interpretation Comments Urine Nitrite (test code = 60761-8) NEGATIVE NEGATIVE [facility] CenterUrine Zchleiu2224-39-29 08:20:00* Test Item Value Reference Range Interpretation Comments Urine Protein (test code = 83174-3) 3+ NEGATIVE H [facility] CenterUrine Glucose (UA)2018-11-11 08:20:00* Test Item Value Reference Range Interpretation Comments Urine Glucose (UA) (test code = 26558-4) 1+ NEGATIVE H [facility] CenterUrine Zsbhjip8971-83-90 08:20:00* Test Item Value Reference Range Interpretation Comments Urine Ketones (test code = 01311-7) NEGATIVE NEGATIVE [facility] Vtqjzrtzsxlz3583-01-70 08:20:00* Test Item Value Reference Range Interpretation Comments Urine Urobilinogen (test code = 89711-3) 0.2 0.2-1 [facility] CenterU[facility] Rrdzeqacw3346-04-56 08:20:00* Test Item Value Reference Range Interpretation Comments Urine Bilirubin (test code = 1977-8) NEGATIVE NEGATIVE [facility] Hpdqt2671-69-95 08:20:00* Test Item Value Reference Range Interpretation Comments Urine Blood (test code = 48380-5) 3+ [facility]GATIVE [facility] Uepps0726-96-73 08:04:00* Test Item Value Reference Range Interpretation Comments Sodium Level (test code = 2951-2) 137 136-145 [facility] CenterPotassium Bthjk1398-98-69 08:04:00* Test Item Value Reference Range Interpretation Comments Potassium Level (test code = 2823-3) 4.8 3.5-5.1 [facility] CenterChloride Yxqsr7420-51-92 08:04:00* Test Item Value Reference Range Interpretation Comments Chloride Level (test code = 2075-0) 109 98-107 H [facility] CenterCarbon Dioxide Tvxcy2781-92-58 08:04:00* Test Item Value Reference Range Interpretation Comments Carbon Dioxide Level (test code = 2028-9) 18 22-29 L [facility] CenterAnion Xer5362-92-40 08:04:00* Test Item Value Reference Range Interpretation Comments Anion Gap (test code = 53765-1) 14.8 8-16 [facility] CenterBlood Urea Gqofwfpe4562-29-23 08:04:00* Test Item Value Reference Range Interpretation Comments Blood Urea Nitrogen (test code = 3094-0) 35 7-26 H [facility] CenterCreatinine2019-09-19 08:04:00* Test Item Value Reference Range Interpretation Comments Creatinine (test code = 2160-0) 3.89 0.72-1.25 H [facility] CenterBUN/Creatinine Ffszk2850-84-95 08:04:00* Test Item Value Reference Range Interpretation Comments BUN/Creatinine Ratio (test code = 3097-3) 9 6-25 [facility] CenterEstimat Glomerular Filtration Rate 2018-11-11 08:04:00* Test Item Value Reference Range Interpretation Comments Estimat Glomerular Filtration Rate (test code = 037284801) 17 >60 L Ranges were taken from the National Kidney Disease Education Program and the [facility] Kidney Foundation literature.Reference ranges:60 or greater: Rzbdtc75-87 ( for 3 consecutive months): Chronic kidney disease 15 or less: Kidney failureCovenant Medical CenterGlucose Obaap0508-53-69 08:04:00* Test Item Value Reference Range Interpretation Comments Glucose Level (test code = YZE9670) 146 74-118 H [facility] CenterCalcium Viqfn9070-60-96 08:04:00* Test Item Value Reference Range Interpretation Comments Calcium Level (test code = 09365-7) 9.0 8.4-10.2 [facility] CenterTotal Mbcvkzuqo3191-84-85 08:04:00* Test Item Value Reference Range Interpretation Comments Total Bilirubin (test code = 1975-2) 0.6 0.2-1.2 [facility] CenterAspartate Amino Transf (AST/SGOT) 2018-11-11 08:04:00* Test Item Value Reference Range Interpretation Comments Aspartate Amino Transf (AST/SGOT) (test code = Aspartate Amino Transf (AST/SGOT)) 14 5-34 [facility] CenterAlanine Aminotransferase (ALT/SGPT) 2018-11-11 08:04:00* Test Item Value Reference Range Interpretation Comments Alanine Aminotransferase (ALT/SGPT) (test code = 1742-6) 9 0-55 [facility] CenterTotal Ewpusra7486-27-73 08:04:00* Test Item Value Reference Range Interpretation Comments Total Protein (test code = 2885-2) 7.9 6.5-8.1 [facility] CenterAlbumin2019-09-19 08:04:00* Test Item Value Reference Range Interpretation Comments Albumin (test code = 1751-7) 3.2 3.5-5.0 L [facility] CenterGlobulin2019-09-19 08:04:00* Test Item Value Reference Range Interpretation Comments Globulin (test code = 08188-6) 4.7 2.3-3.5 H [facility] CenterAlbumin/Globulin Metxr4148-52-20 08:04:00 * Test Item Value Reference Range Interpretation Comments Albumin/Globulin Ratio (test code = 1759-0) 0.7 0.8-2.0 L [facility] CenterAlkaline Alxdfakrrmb1882-99-65 08:04:00* Test Item Value Reference Range Interpretation Comments Alkaline Phosphatase (test code = 6768-6) 202 40-150 H [facility] CenterTotal Tqberhauh4159-10-18 08:04:00* Test Item Value Reference Range Interpretation Comments Total Bilirubin (test code = 1975-2) 0.6 0.2-1.2 [facility] CenterAspartate Amino Transf (AST/SGOT) 2018-11-11 08:04:00* Test Item Value Reference Range Interpretation Comments Aspartate Amino Transf (AST/SGOT) (test code = Aspartate Amino Transf (AST/SGOT)) 14 5-34 [facility] CenterAlanine Aminotransferase (ALT/SGPT) 2018-11-11 08:04:00* Test Item Value Reference Range Interpretation Comments Alanine Aminotransferase (ALT/SGPT) (test code = 1742-6) 9 0-55 [facility] Onzvdja8025-40-78 08:04:00* Test Item Value Reference Range Interpretation Comments Total Protein (test code = 2885-2) 7.9 6.5-8.1 [facility] CenterGlobulin2019-09-19 08:04:00* Test Item Value Reference Range Interpretation Comments Globulin (test code = 55857-9) 4.7 2.3-3.5 H [facility] CenterAlbumin/Globulin Gpypm4816-24-27 08:04:00 * Test Item Value Reference Range Interpretation Comments Albumin/Globulin Ratio (test code = 1759-0) 0.7 0.8-2.0 L [facility] CenterAlkaline Wqkpeddvqkn4002-81-17 08:04:00* Test Item Value Reference Range Interpretation Comments Alkaline Phosphatase (test code = 6768-6) 202 40-150 H [facility] CenterTotal Pgixfuysy5699-71-01 08:04:00* Test Item Value Reference Range Interpretation Comments Total Bilirubin (test code = 1975-2) 0.6 0.2-1.2 [facility] CenterAspartate Amino Transf (AST/SGOT) 2018-11-11 08:04:00* Test Item Value Reference Range Interpretation Comments Aspartate Amino Transf (AST/SGOT) (test code = Aspartate Amino Transf (AST/SGOT)) 14 5-34 [facility] CenterAlanine Aminotransferase (ALT/SGPT) 2018-11-11 08:04:00* Test Item Value Reference Range Interpretation Comments Alanine Aminotransferase (ALT/SGPT) (test code = 1742-6) 9 0-55 [facility] CenterTotal Ytqbnns5170-79-21 08:04:00* Test Item Value Reference Range Interpretation Comments Total Protein (test code = 2885-2) 7.9 6.5-8.1 [facility] CenterGlobulin2019-09-19 08:04:00* Test Item Value Reference Range Interpretation Comments Globulin (test code = 59451-9) 4.7 2.3-3.5 H [facility] CenterAlbumin/Globulin Gajhn2920-58-38 08:04:00 * Test Item Value Reference Range Interpretation Comments Albumin/Globulin Ratio (test code = 1759-0) 0.7 0.8-2.0 L [facility] CenterAlkaline Amnmvduiwps3424-91-71 08:04:00* Test Item Value Reference Range Interpretation Comments Alkaline Phosphatase (test code = 6768-6) 202 40-150 H [facility] CenterWhite Blood Mbivs9109-69-93 07:49:00* Test Item Value Reference Range Interpretation Comments White Blood Count (test code = 6690-2) 6.09 4.8-10.8 [facility] CenterRed Blood Sdvtk4308-24-37 07:49:00* Test Item Value Reference Range Interpretation Comments Red Blood Count (test code = 789-8) 4.56 4.3-5.7 [facility] CenterHemoglobin2019-09-19 07:49:00* Test Item Value Reference Range Interpretation Comments Hemoglobin (test code = 15191-7) 12.7 14.0-18.0 L [facility] CenterHematocrit2019-09-19 07:49:00* Test Item Value Reference Range Interpretation Comments Hematocrit (test code = 4544-3) 38.6 38.2-49.6 [facility] CenterMean Corpuscular Ezwmod8992-70-53 07:49:00* Test Item Value Reference Range Interpretation Comments Mean Corpuscular Volume (test code = 787-2) 84.6 81-99 [facility] CenterMean Corpuscular Nangqbbacg2680-27-81 07:49:00* Test Item Value Reference Range Interpretation Comments Mean Corpuscular Hemoglobin (test code = 785-6) 27.9 28-32 L [facility] CenterMean Corpuscular Hemoglobin Concent 2018-11-11 07:49:00* Test Item Value Reference Range Interpretation Comments Mean Corpuscular Hemoglobin Concent (test code = 786-4) 32.9 31-35 [facility] CenterRed Cell Distribution Iynzp9454-77-85 07:49:00* Test Item Value Reference Range Interpretation Comments Red Cell Distribution Width (test code = 65212-4) 15.5 11.7 -14.4 H [facility] CenterPlatelet Gbmfh7686-06-61 07:49:00* Test Item Value Reference Range Interpretation Comments Platelet Count (test code = 777-3) 140 140-360 [facility] CenterNeutrophils (%) (Auto)2018-11-11 07:49:00 * Test Item Value Reference Range Interpretation Comments Neutrophils (%) (Auto) (test code = 93618-5) 74.1 38.7-80.0 [facility] CenterLymphocytes (%) (Auto)2018-11-11 07:49:00 * Test Item Value Reference Range Interpretation Comments Lymphocytes (%) (Auto) (test code = 736-9) 18.2 18.0-39.1 [facility] CenterMonocytes (%) (Auto)2018-11-11 07:49:00* Test Item Value Reference Range Interpretation Comments Monocytes (%) (Auto) (test code = 5905-5) 4.9 4.4-11.3 [facility] CenterEosinophils (%) (Auto)2018-11-11 07:49:00 * Test Item Value Reference Range Interpretation Comments Eosinophils (%) (Auto) (test code = 713-8) 2.0 0.0-6.0 [facility] CenterBasophils (%) (Auto)2018-11-11 07:49:00* Test Item Value Reference Range Interpretation Comments Basophils (%) (Auto) (test code = 706-2) 0.3 0.0-1.0 [facility] CenterIM GRANULOCYTES %2018-11-11 07:49:00* Test Item Value Reference Range Interpretation Comments IM GRANULOCYTES % (test code = IM GRANULOCYTES %) 0.5 0.0- 1.0 [facility] CenterNeutrophils # (Auto)2018-11-11 07:49:00* Test Item Value Reference Range Interpretation Comments Neutrophils # (Auto) (test code = 751-8) 4.5 2.1-6.9 [facility] CenterLymphocytes # (Auto)2018-11-11 07:49:00* Test Item Value Reference Range Interpretation Comments Lymphocytes # (Auto) (test code = 85536-8) 1.1 1.0-3.2 [facility] CenterMonocytes # (Auto)2018-11-11 07:49:00* Test Item Value Reference Range Interpretation Comments Monocytes # (Auto) (test code = 742-7) 0.3 0.2-0.8 [facility] CenterEosinophils # (Auto)2018-11-11 07:49:00* Test Item Value Reference Range Interpretation Comments Eosinophils # (Auto) (test code = 711-2) 0.1 0.0-0.4 [facility] CenterBasophils # (Auto)2018-11-11 07:49:00* Test Item Value Reference Range Interpretation Comments Basophils # (Auto) (test code = 704-7) 0.0 0.0-0.1 [facility] CenterAbsolute Immature Granulocyte (auto 2018-11-11 07:49:00* Test Item Value Reference Range Interpretation Comments Absolute Immature Granulocyte (auto (shin t code = Absolute Immature Granulocyte (auto) 0.03 0-0.1 [facility] CenterFluoroscopic procedure less than one hour aiddjkci0058-61-07 07:22:00* Test Item Value Reference Range Interpretation Comments Differential Total Cells Counted (test code = Brian tial Total Cells Counted) 100 [facility] blood neutrophils/100 leukocytes 2018-11-11 07:22:00* Test Item Value Reference Range Interpretation Comments Neutrophils % (Manual) (test code = 95257-9) 74 40-74 [facility] blood lymphocytes/100 leukocytes 2018-11-11 07:22:00* Test Item Value Reference Range Interpretation Comments Lymphocytes % (Manual) (test code = 737-7) 19 19-48 [facility] blood monocytes/100 leukocytes 2018-11-11 07:22:00* Test Item Value Reference Range Interpretation Comments Monocytes % (Manual) (test code = 744-3) 5 3.4-9.0 [facility] blood eosinophil count as percentage of total kwitrgpyyn2019-35-57 07:22:00* Test Item Value Reference Range Interpretation Comments Eosinophils % (Manual) (test code = 714-6) 2 0-7 [facility] platelets count by estimate (number/volume)2018-11-11 07:22:00* Test Item Value Reference Range Interpretation Comments Platelet Estimate (test code = 14335-5) MODERATELY DECREASED [facility] CenterPlatelet isvsykkkzy3696-13-44 07:22:00* Test Item Value Reference Range Interpretation Comments Platelet Morphology Comment (test code = 36232-8) FEW LARGE NO PLT CLUMPSCovenant Medical CenterRBC kvhmyrxisl5647-37-20 07:22:00* Test Item Value Reference Range Interpretation Comments Red Cell Morphology Comment (test code = 6742-1) NORMAL [facility] CenterFluoroscopic procedure less than one hour pkdinizv1756-58-47 07:22:00* Test Item Value Reference Range Interpretation Comments Differential Total Cells Counted (test code = Differomar tial Total Cells Counted) 100 [facility] blood neutrophils/100 leukocytes 2018-11-11 07:22:00* Test Item Value Reference Range Interpretation Comments Neutrophils % (Manual) (test code = 76114-2) 74 40-74 [facility] blood lymphocytes/100 leukocytes 2018-11-11 07:22:00* Test Item Value Reference Range Interpretation Comments Lymphocytes % (Manual) (test code = 737-7) 19 19-48 [facility] blood monocytes/100 leukocytes 2018-11-11 07:22:00* Test Item Value Reference Range Interpretation Comments Monocytes % (Manual) (test code = 744-3) 5 3.4-9.0 [facility] blood eosinophil count as percentage of total adohpgrypu6291-75-96 07:22:00* Test Item Value Reference Range Interpretation Comments Eosinophils % (Manual) (test code = 714-6) 2 0-7 [facility] platelets count by estimate (number/volume)2018-11-11 07:22:00* Test Item Value Reference Range Interpretation Comments Platelet Estimate (test code = 26620-2) MODERATELY DECREASED [facility] xatgwgdmgh2448-86-10 07:22:00* Test Item Value Reference Range Interpretation Comments Platelet Morphology Comment (test code = 49463-6) FEW LARGE NO PLT CLUMPSCovenant Medical CenterRBC bhkggsdyef8758-56-36 07:22:00* Test Item Value Reference Range Interpretation Comments Red Cell Morphology Comment (test code = 6742-1) NORMAL [facility] Ejvzlbp8754-85-66 07:37:00* Test Item Value Reference Range Interpretation Comments Bedside Glucose (test code = 72994-4) 160 70-120 H Meter ID: [id number] [facility] Hospital Glucose 2018-11-08 07:37:00* Test Item Value Reference Range Interpretation Comments Bedside Glucose (test code = 22497-2) 160 70-120 H Meter ID: [id number] Medical CenterDifferential Total Cells Auixsxh8971-81-01 06:23:00* Test Item Value Reference Range Interpretation Comments Differential Total Cells Counted (test code = Differomar tial Total Cells Counted) 100 [facility] CenterNeutrophils % (Manual)2018-11-08 06:23:00 * Test Item Value Reference Range Interpretation Comments Neutrophils % (Manual) (test code = 04231-3) 71 40-74 [facility] CenterLymphocytes % (Manual)2018-11-08 06:23:00 * Test Item Value Reference Range Interpretation Comments Lymphocytes % (Manual) (test code = 737-7) 17 19-48 L [facility] CenterMonocytes % (Manual)2018-11-08 06:23:00* Test Item Value Reference Range Interpretation Comments Monocytes % (Manual) (test code = 744-3) 9 3.4-9.0 [facility] CenterEosinophils % (Manual)2018-11-08 06:23:00 * Test Item Value Reference Range Interpretation Comments Eosinophils % (Manual) (test code = 714-6) 3 0-7 [facility] CenterPlatelet Ueldvyvx1637-50-82 06:23:00* Test Item Value Reference Range Interpretation Comments Platelet Estimate (test code = 54544-2) MARKEDLY INCREASED [facility] CenterPlatelet Morphology Raobcqm5169-29-21 06:23:00* Test Item Value Reference Range Interpretation Comments Platelet Morphology Comment (test code = 49346-2) FEW LARGE [facility] CenterRed Cell Morphology Wecixrn6657-91-67 06:23:00* Test Item Value Reference Range Interpretation Comments Red Cell Morphology Comment (test code = 6742-1) NORMAL [facility] Oucxz0022-12-58 05:37:00* Test Item Value Reference Range Interpretation Comments Sodium Level (test code = 2951-2) 135 136-145 L [facility] CenterPotassium Pdzgu9134-81-38 05:37:00* Test Item Value Reference Range Interpretation Comments Potassium Level (test code = 2823-3) 4.6 3.5-5.1 [facility] CenterChloride Iefis5222-50-74 05:37:00* Test Item Value Reference Range Interpretation Comments Chloride Level (test code = 2075-0) 106 98-107 [facility] CenterCarbon Dioxide Mensw4281-82-80 05:37:00* Test Item Value Reference Range Interpretation Comments Carbon Dioxide Level (test code = 2028-9) 19 22-29 L [facility] CenterAnion Ans1191-16-10 05:37:00* Test Item Value Reference Range Interpretation Comments Anion Gap (test code = 86324-1) 14.6 8-16 [facility] CenterBlood Urea Xuelhvsb3377-40-87 05:37:00* Test Item Value Reference Range Interpretation Comments Blood Urea Nitrogen (test code = 3094-0) 30 7-26 H [facility] CenterCreatinine2019-09-16 05:37:00* Test Item Value Reference Range Interpretation Comments Creatinine (test code = 2160-0) 3.35 0.72-1.25 H [facility] CenterBUN/Creatinine Afcmh4049-32-88 05:37:00* Test Item Value Reference Range Interpretation Comments BUN/Creatinine Ratio (test code = 3097-3) 9 6-25 [facility] CenterEstimat Glomerular Filtration Rate 2018-11-08 05:37:00* Test Item Value Reference Range Interpretation Comments Estimat Glomerular Filtration Rate (test code = 644458520) 21 >60 L Ranges were taken from the National Kidney Disease Education Program and the [facility] Kidney Foundation literature.Reference ranges:60 or greater: Phkice84-32 ( for 3 consecutive months): Chronic kidney disease 15 or less: Kidney failureCovenant Medical CenterGlucose Uyqne8170-49-77 05:37:00* Test Item Value Reference Range Interpretation Comments Glucose Level (test code = VUI5236) 125 74-118 H [facility] CenterCalcium Owbch5483-32-49 05:37:00* Test Item Value Reference Range Interpretation Comments Calcium Level (test code = 08286-8) 8.4 8.4-10.2 [facility] CenterWhite Blood Gdnhb2202-78-70 05:26:00* Test Item Value Reference Range Interpretation Comments White Blood Count (test code = 6690-2) 4.49 4.8-10.8 L [facility] CenterRed Blood Taptb9977-12-70 05:26:00* Test Item Value Reference Range Interpretation Comments Red Blood Count (test code = 789-8) 3.94 4.3-5.7 L [facility] CenterHemoglobin2019-09-16 05:26:00* Test Item Value Reference Range Interpretation Comments Hemoglobin (test code = 59443-1) 11.0 14.0-18.0 L [facility] CenterHematocrit2019-09-16 05:26:00* Test Item Value Reference Range Interpretation Comments Hematocrit (test code = 4544-3) 34.1 38.2-49.6 L [facility] CenterMean Corpuscular Compud4830-62-21 05:26:00* Test Item Value Reference Range Interpretation Comments Mean Corpuscular Volume (test code = 787-2) 86.5 81-99 [facility] CenterMean Corpuscular Lcuzxndtye9609-27-85 05:26:00* Test Item Value Reference Range Interpretation Comments Mean Corpuscular Hemoglobin (test code = 785-6) 27.9 28-32 L [facility] CenterMean Corpuscular Hemoglobin Concent 2018-11-08 05:26:00* Test Item Value Reference Range Interpretation Comments Mean Corpuscular Hemoglobin Concent (test code = 786-4) 32.3 31-35 [facility] CenterRed Cell Distribution Mrnvw1454-69-70 05:26:00* Test Item Value Reference Range Interpretation Comments Red Cell Distribution Width (test code = 56997-7) 15.9 11.7 -14.4 H [facility] CenterPlatelet Icapm8336-66-23 05:26:00* Test Item Value Reference Range Interpretation Comments Platelet Count (test code = 777-3) 101 140-360 L [facility] CenterNeutrophils (%) (Auto)2018-11-08 05:26:00 * Test Item Value Reference Range Interpretation Comments Neutrophils (%) (Auto) (test code = 54419-2) 59.0 38.7-80.0 [facility] CenterLymphocytes (%) (Auto)2018-11-08 05:26:00 * Test Item Value Reference Range Interpretation Comments Lymphocytes (%) (Auto) (test code = 736-9) 27.4 18.0-39.1 [facility] CenterMonocytes (%) (Auto)2018-11-08 05:26:00* Test Item Value Reference Range Interpretation Comments Monocytes (%) (Auto) (test code = 5905-5) 7.6 4.4-11.3 [facility] CenterEosinophils (%) (Auto)2018-11-08 05:26:00 * Test Item Value Reference Range Interpretation Comments Eosinophils (%) (Auto) (test code = 713-8) 4.9 0.0-6.0 [facility] CenterBasophils (%) (Auto)2018-11-08 05:26:00* Test Item Value Reference Range Interpretation Comments Basophils (%) (Auto) (test code = 706-2) 0.7 0.0-1.0 [facility] CenterIM GRANULOCYTES %2018-11-08 05:26:00* Test Item Value Reference Range Interpretation Comments IM GRANULOCYTES % (test code = IM GRANULOCYTES %) 0.4 0.0- 1.0 [facility] CenterNeutrophils # (Auto)2018-11-08 05:26:00* Test Item Value Reference Range Interpretation Comments Neutrophils # (Auto) (test code = 751-8) 2.7 2.1-6.9 [facility] CenterLymphocytes # (Auto)2018-11-08 05:26:00* Test Item Value Reference Range Interpretation Comments Lymphocytes # (Auto) (test code = 16300-0) 1.2 1.0-3.2 [facility] CenterMonocytes # (Auto)2018-11-08 05:26:00* Test Item Value Reference Range Interpretation Comments Monocytes # (Auto) (test code = 742-7) 0.3 0.2-0.8 [facility] CenterEosinophils # (Auto)2018-11-08 05:26:00* Test Item Value Reference Range Interpretation Comments Eosinophils # (Auto) (test code = 711-2) 0.2 0.0-0.4 [facility] CenterBasophils # (Auto)2018-11-08 05:26:00* Test Item Value Reference Range Interpretation Comments Basophils # (Auto) (test code = 704-7) 0.0 0.0-0.1 [facility] CenterAbsolute Immature Granulocyte (auto 2018-11-08 05:26:00* Test Item Value Reference Range Interpretation Comments Absolute Immature Granulocyte (auto (shin t code = Absolute Immature Granulocyte (auto) 0.02 0-0.1 [facility] CenterMagnesium Kjufz3211-62-49 07:21:00* Test Item Value Reference Range Interpretation Comments Magnesium Level (test code = 86334-7) 1.5 1.3-2.1 [facility] CenterMagnesium Mugmd6224-94-68 07:21:00* Test Item Value Reference Range Interpretation Comments Magnesium Level (test code = 13665-3) 1.5 1.3-2.1 [facility] CenterTotal Ojjqtdwwk2247-87-10 08:37:00* Test Item Value Reference Range Interpretation Comments Total Bilirubin (test code = 1975-2) 0.5 0.2-1.2 [facility] CenterAspartate Amino Transf (AST/SGOT) 2018-11-05 08:37:00* Test Item Value Reference Range Interpretation Comments Aspartate Amino Transf (AST/SGOT) (test code = Aspartate Amino Transf (AST/SGOT)) 12 5-34 [facility] CenterAlanine Aminotransferase (ALT/SGPT) 2018-11-05 08:37:00* Test Item Value Reference Range Interpretation Comments Alanine Aminotransferase (ALT/SGPT) (test code = 1742-6) 14 0-55 [facility] CenterTotal Dafzjtq7541-04-51 08:37:00* Test Item Value Reference Range Interpretation Comments Total Protein (test code = 2885-2) 7.3 6.5-8.1 [facility] CenterAlbumin2019-09-13 08:37:00* Test Item Value Reference Range Interpretation Comments Albumin (test code = 1751-7) 3.0 3.5-5.0 L [facility] CenterGlobulin2019-09-13 08:37:00* Test Item Value Reference Range Interpretation Comments Globulin (test code = 76776-0) 4.3 2.3-3.5 H [facility] CenterAlbumin/Globulin Kgjhv8379-00-38 08:37:00 * Test Item Value Reference Range Interpretation Comments Albumin/Globulin Ratio (test code = 1759-0) 0.7 0.8-2.0 L [facility] CenterAlkaline Ojtimxwjuud9541-09-24 08:37:00* Test Item Value Reference Range Interpretation Comments Alkaline Phosphatase (test code = 6768-6) 200 40-150 H [facility] CenterBlood Jvcgtqy8153-19-41 05:38:00* Test Item Value Reference Range Interpretation Comments Blood Culture (test code = 36339775) NO GROWTH AFTER 5 DAYS, FINAL REPORT [facility] CenterBlood Qyndkbe8041-78-69 05:38:00* Test Item Value Reference Range Interpretation Comments Blood Culture (test code = 89947711) NO GROWTH AFTER 5 DAYS, FINAL REPORT [facility] Ljebmhe5182-17-52 05:38:00* Test Item Value Reference Range Interpretation Comments Blood Culture (test code = 69429480) NO GROWTH AFTER 5 DAYS, FINAL REPORT [facility] Bqaeaag3446-90-34 05:38:00* Test Item Value Reference Range Interpretation Comments Blood Culture (test code = 66168289) NO GROWTH AFTER 5 DAYS, FINAL REPORT [facility]2019-09-11 05:51:00* Test Item Value Reference Range Interpretation Comments Phosphorus Level (test code = JIU9702) 5.4 2.3-4.7 H [facility]2019-09-11 05:51:00* Test Item Value Reference Range Interpretation Comments Phosphorus Level (test code = NVW3044) 5.4 2.3-4.7 H [facility]2019-09-09 06:18:00* Test Item Value Reference Range Interpretation Comments Iron Level (test code = 2498-4) 50 65-175 L [facility] Iron Binding Lxjfbbbx7187-36-47 06:18:00* Test Item Value Reference Range Interpretation Comments Total Iron Binding Capacity (test code = 2500-7) 232 261-4 78 L [facility] CenterPercent Iron Fbmoyfrjmi1112-67-68 06:18:00* Test Item Value Reference Range Interpretation Comments Percent Iron Saturation (test code = 2502-3) 22 15-50 [facility] 06:18:00* Test Item Value Reference Range Interpretation Comments Transferrin (test code = 3034-6) 166 174-364 L [facility] Qcobe3173-29-16 06:18:00* Test Item Value Reference Range Interpretation Comments Iron Level (test code = 2498-4) 50 65-175 L [facility] Iron Binding Uhwwvjyt9176-84-96 06:18:00* Test Item Value Reference Range Interpretation Comments Total Iron Binding Capacity (test code = 2500-7) 232 261-4 78 L [facility]Percent Iron Qrgzpgyzrp9728-19-53 06:18:00* Test Item Value Reference Range Interpretation Comments Percent Iron Saturation (test code = 2502-3) 22 -50 [facility] 06:18:00* Test Item Value Reference Range Interpretation Comments Transferrin (test code = 3034-6) 166 174-364 L [facility]2019-09-09 06:18:00* Test Item Value Reference Range Interpretation Comments Iron Level (test code = 2498-4) 50 65-175 L [facility] Iron Binding Gjrnfgbt9838-95-75 06:18:00* Test Item Value Reference Range Interpretation Comments Total Iron Binding Capacity (test code = 2500-7) 232 261-4 78 L [facility]Percent Iron Mmdsdadtju5634-91-36 06:18:00* Test Item Value Reference Range Interpretation Comments Percent Iron Saturation (test code = 2502-3) 50 [facility]2019-09-09 06:18:00* Test Item Value Reference Range Interpretation Comments Transferrin (test code = 3034-6) 166 174-364 L [facility]2019-09-09 06:18:00* Test Item Value Reference Range Interpretation Comments Iron Level (test code = 2498-4) 50 65-175 L [facility] Iron Binding Iudysbps2977-47-07 06:18:00* Test Item Value Reference Range Interpretation Comments Total Iron Binding Capacity (test code = 2500-7) 232 261-4 78 L [facility]Percent Iron Dhslglrkib9265-95-10 06:18:00* Test Item Value Reference Range Interpretation Comments Percent Iron Saturation (test code = 2502-3) 50 [facility] Center[facility]2019-[facility] 06:18:00* Test Item Value Reference Range Interpretation Comments Transferrin (test code = 3034-6) 166 174-364 L [facility] CenterU[facility] EYC8192-95-26 15:35:00* Test Item Value Reference Range Interpretation Comments Urine WBC (test code = 5821-4) >50 0-5 H [facility] Center[facility] SLV1646-51-44 15:35:00* Test Item Value Reference Range Interpretation Comments Urine RBC (test code = 06572-2) >50 0-5 H [facility] CenterU[facility] Coswnhcc7790-94-43 15:35:00* Test Item Value Reference Range Interpretation Comments Urine Bacteria (test code = 83814-2) MANY NONE H [facility] Center[facility] Epithelial Fuwyi1106-86-44 15:35:00 * Test Item Value Reference Range Interpretation Comments Urine Epithelial Cells (test code = 16059-6) MANY NONE [facility] Vbndx8121-02-12 15:11:00* Test Item Value Reference Range Interpretation Comments Urine Color (test code = 5778-6) YELLOW YELLOW [facility] Aahfhxq2811-43-90 15:11:00* Test Item Value Reference Range Interpretation Comments Urine Clarity (test code = 88726-7) SL CLOUDY CLEAR H [facility] CenterUrine Specific Gybsitk7844-63-84 15:11:00 * Test Item Value Reference Range Interpretation Comments Urine Specific Hertel (test code = 5811-5) 1.025 1.010-1.02 5 [facility] zI3230-79-11 15:11:00* Test Item Value Reference Range Interpretation Comments Urine pH (test code = 32521-6) 6 5-7 [facility] Leukocyte Hhkdwlvh7918-16-79 15:11:00* Test Item Value Reference Range Interpretation Comments Urine Leukocyte Esterase (test code = 39135-3) NEGATIVE NEGATIV E [facility] Center[facility] Foxrxwf4989-82-42 15:11:00* Test Item Value Reference Range Interpretation Comments Urine Nitrite (test code = 23044-6) NEGATIVE NEGATIVE [facility] Sbnvazo4299-38-47 15:11:00* Test Item Value Reference Range Interpretation Comments Urine Protein (test code = 80099-1) 3+ NEGATIVE H [facility] CenterUrine Glucose (UA)2018-10-31 15:11:00* Test Item Value Reference Range Interpretation Comments Urine Glucose (UA) (test code = 48206-8) NEGATIVE NEGATIVE [facility] Vazmjqa1770-81-54 15:11:00* Test Item Value Reference Range Interpretation Comments Urine Ketones (test code = 78146-9) NEGATIVE NEGATIVE [facility] Center[facility] Oigqlfwyqtxe7169-40-66 15:11:00* Test Item Value Reference Range Interpretation Comments Urine Urobilinogen (test code = 34398-0) 0.2 0.2-1 [facility] Dzrscjtfm9199-38-82 15:11:00* Test Item Value Reference Range Interpretation Comments Urine Bilirubin (test code = 1977-8) NEGATIVE NEGATIVE [facility] Ecrgz4102-10-11 15:11:00* Test Item Value Reference Range Interpretation Comments Urine Blood (test code = 11248-4) 3+ NEGATIVE [facility] CenterCreatine Kinase ZK8143-38-06 08:40:00* Test Item Value Reference Range Interpretation Comments Creatine Kinase MB (test code = 97828-7) 1.60 0-5.0 [facility] CenterTroponin E0642-01-10 08:40:00* Test Item Value Reference Range Interpretation Comments Troponin I (test code = QBO6524) 0.008 0-0.300 [facility] CenterCreatine Kinase XK5667-38-97 08:40:00* Test Item Value Reference Range Interpretation Comments Creatine Kinase MB (test code = 86755-8) 1.60 0-5.0 [facility] CenterTroponin P8473-65-64 08:40:00* Test Item Value Reference Range Interpretation Comments Troponin I (test code = LLC1755) 0.008 0-0.300 [facility] CenterCreatine Kinase CZ8571-20-09 08:40:00* Test Item Value Reference Range Interpretation Comments Creatine Kinase MB (test code = 13082-8) 1.60 0-5.0 [facility] CenterTrspartan[facility] centerMimb[facility] HospitalJ5856-25-83 08:40:00* Test Item Value Reference Range Interpretation Comments Troponin I (test code = SBO7070) 0.008 0-0.300 [facility] CenterCreatine Kinase QH3686-11-51 08:40:00* Test Item Value Reference Range Interpretation Comments Creatine Kinase MB (test code = 78042-2) 1.60 0-5.0 [place] 98008019-09-08 08:40:00* Test Item Value Reference Range Interpretation Comments Troponin I (test code = QRF8122) 0.008 0-0.300 [facility] CenterCreatine Kinase YZ2782-95-38 08:40:00* Test Item Value Reference Range Interpretation Comments Creatine Kinase MB (test code = 21120-4) 1.60 0-5.0 [place] 98008019-09-08 08:40:00* Test Item Value Reference Range Interpretation Comments Troponin I (test code = AFL1685) 0.008 0-0.300 [facility] CenterCreatine Kinase GR1651-80-77 08:40:00* Test Item Value Reference Range Interpretation Comments Creatine Kinase MB (test code = 05204-4) 1.60 0-5.0 [place] 98008019-09-08 08:40:00* Test Item Value Reference Range Interpretation Comments Troponin I (test code = 88230-8) 0.008 0-0.300 [facility] CenterCreatine Kinase SQ9659-18-84 08:40:00* Test Item Value Reference Range Interpretation Comments Creatine Kinase MB (test code = 22818-1) 1.60 0-5.0 [place] 98008019-09-08 08:40:00* Test Item Value Reference Range Interpretation Comments Troponin I (test code = 82479-0) 0.008 0-0.300 [facility] CenterCreatine Etupvn4219-63-03 07:55:00* Test Item Value Reference Range Interpretation Comments Creatine Kinase (test code = 2157-6) 266 30-200 H [facility] CenterCreatine Jvzcfh0101-90-09 07:55:00* Test Item Value Reference Range Interpretation Comments Creatine Kinase (test code = 2157-6) 266 30-200 H [facility] CenterCreatine Kygqvp8142-83-88 07:55:00* Test Item Value Reference Range Interpretation Comments Creatine Kinase (test code = 2157-6) 266 30-200 H [facility] CenterCreatine Ghswkd3623-65-41 07:55:00* Test Item Value Reference Range Interpretation Comments Creatine Kinase (test code = 2157-6) 266 30-200 H [facility] CenterCreatine Qdyplw7706-45-51 07:55:00* Test Item Value Reference Range Interpretation Comments Creatine Kinase (test code = 2157-6) 266 30-200 H [facility] CenterCreatine Deasyf1266-83-73 07:55:00* Test Item Value Reference Range Interpretation Comments Creatine Kinase (test code = 2157-6) 266 30-200 H [facility] CenterCreatine Zfuakt0293-55-20 07:55:00* Test Item Value Reference Range Interpretation Comments Creatine Kinase (test code = 2157-6) 266 30-200 H [facility] CenterCT ABDOMEN/PELVIS EK7149-34-82 02:46:00 [facility] [address] [place] [address] Patient Name: MANJIT LUO MR #: [id number] : 1980 Age/Sex: 38/M Req #: [id number] Adm Physician: Ordered by: BEV FLORES MD Report #: [id number] Location: ER Room/Bed: Procedure: [id number] CT/CT ABDOMEN/PELVIS WO Exam Date: 10/31/18 Exam [...] 10/31/18252 COPY TO: BEV FLORES MD Bedside Ldklzxr7358-56-88 07:32:00* Test Item Value Reference Range Interpretation Comments Bedside Glucose (test code = 71827-6) 106 70-120 Meter ID: [id number] Health Arlington Memorial Hospitalodium Level 2018-10-29 07:01:00* Test Item Value Reference Range Interpretation Comments Sodium Level (test code = 2951-2) 138 136-145 [facility] CenterPotassium Xszjd3245-47-57 07:01:00* Test Item Value Reference Range Interpretation Comments Potassium Level (test code = 2823-3) 4.5 3.5-5.1 [facility] CenterChloride Mluwl5065-51-52 07:01:00* Test Item Value Reference Range Interpretation Comments Chloride Level (test code = 2075-0) 103 98-107 [facility] CenterCarbon Dioxide Iutpc0899-87-67 07:01:00* Test Item Value Reference Range Interpretation Comments Carbon Dioxide Level (test code = 2028-9) 24 22-29 [facility] CenterAnion Rwm5942-86-55 07:01:00* Test Item Value Reference Range Interpretation Comments Anion Gap (test code = 06604-1) 15.5 8-16 [facility] CenterBlood Urea Hfaahsgv8293-08-97 07:01:00* Test Item Value Reference Range Interpretation Comments Blood Urea Nitrogen (test code = 3094-0) 29 7-26 H [facility] CenterCreatinine2019-09-06 07:01:00* Test Item Value Reference Range Interpretation Comments Creatinine (test code = 2160-0) 3.71 0.72-1.25 H [facility] CenterBUN/Creatinine Lfwib4141-34-59 07:01:00* Test Item Value Reference Range Interpretation Comments BUN/Creatinine Ratio (test code = 3097-3) 8 6-25 [facility] CenterEstimat Glomerular Filtration Rate 2018-10-29 07:01:00* Test Item Value Reference Range Interpretation Comments Estimat Glomerular Filtration Rate (test code = 785819912) 18 >60 L Ranges were taken from the National Kidney Disease Education Program and the [facility] Kidney Foundation literature.Reference ranges:60 or greater: Ywmmsu21-93 ( for 3 consecutive months): Chronic kidney disease 15 or less: Kidney failureCovenant Medical CenterGlucose Klotv8077-13-77 07:01:00* Test Item Value Reference Range Interpretation Comments Glucose Level (test code = HYV0991) 104 74-118 [facility] CenterCalcium Kymdn7789-42-69 07:01:00* Test Item Value Reference Range Interpretation Comments Calcium Level (test code = 64823-3) 8.2 8.4-10.2 L [facility] CenterWhite Blood Trjhu0551-04-93 06:31:00* Test Item Value Reference Range Interpretation Comments White Blood Count (test code = 6690-2) 5.14 4.8-10.8 [facility] CenterRed Blood Dkdla1273-00-16 06:31:00* Test Item Value Reference Range Interpretation Comments Red Blood Count (test code = 789-8) 3.56 4.3-5.7 L [facility] CenterHemoglobin2019-09-06 06:31:00* Test Item Value Reference Range Interpretation Comments Hemoglobin (test code = 82781-5) 9.8 14.0-18.0 L [facility] CenterHematocrit2019-09-06 06:31:00* Test Item Value Reference Range Interpretation Comments Hematocrit (test code = 4544-3) 30.4 38.2-49.6 L [facility] CenterMean Corpuscular Uilwxl1939-40-70 06:31:00* Test Item Value Reference Range Interpretation Comments Mean Corpuscular Volume (test code = 787-2) 85.4 81-99 [facility] CenterMean Corpuscular Mdjmpdeaor8375-72-12 06:31:00* Test Item Value Reference Range Interpretation Comments Mean Corpuscular Hemoglobin (test code = 785-6) 27.5 28-32 L [facility] CenterMean Corpuscular Hemoglobin Concent 2018-10-29 06:31:00* Test Item Value Reference Range Interpretation Comments Mean Corpuscular Hemoglobin Concent (test code = 786-4) 32.2 31-35 [facility] CenterRed Cell Distribution Obfnj8309-63-35 06:31:00* Test Item Value Reference Range Interpretation Comments Red Cell Distribution Width (test code = 74652-0) 15.0 11.7 -14.4 H [facility] CenterPlatelet Xhyyo6853-61-50 06:31:00* Test Item Value Reference Range Interpretation Comments Platelet Count (test code = 777-3) 103 140-360 L [facility] CenterNeutrophils (%) (Auto)2018-10-29 06:31:00 * Test Item Value Reference Range Interpretation Comments Neutrophils (%) (Auto) (test code = 61376-1) 56.2 38.7-80.0 [facility] CenterLymphocytes (%) (Auto)2018-10-29 06:31:00 * Test Item Value Reference Range Interpretation Comments Lymphocytes (%) (Auto) (test code = 736-9) 33.7 18.0-39.1 [facility] CenterMonocytes (%) (Auto)2018-10-29 06:31:00* Test Item Value Reference Range Interpretation Comments Monocytes (%) (Auto) (test code = 5905-5) 6.2 4.4-11.3 [facility] CenterEosinophils (%) (Auto)2018-10-29 06:31:00 * Test Item Value Reference Range Interpretation Comments Eosinophils (%) (Auto) (test code = 713-8) 2.7 0.0-6.0 [facility] CenterBasophils (%) (Auto)2018-10-29 06:31:00* Test Item Value Reference Range Interpretation Comments Basophils (%) (Auto) (test code = 706-2) 0.4 0.0-1.0 [facility] CenterIM GRANULOCYTES %2018-10-29 06:31:00* Test Item Value Reference Range Interpretation Comments IM GRANULOCYTES % (test code = IM GRANULOCYTES %) 0.8 0.0- 1.0 [facility] CenterNeutrophils # (Auto)2018-10-29 06:31:00* Test Item Value Reference Range Interpretation Comments Neutrophils # (Auto) (test code = 751-8) 2.9 2.1-6.9 [facility] CenterLymphocytes # (Auto)2018-10-29 06:31:00* Test Item Value Reference Range Interpretation Comments Lymphocytes # (Auto) (test code = 00668-6) 1.7 1.0-3.2 [facility] CenterMonocytes # (Auto)2018-10-29 06:31:00* Test Item Value Reference Range Interpretation Comments Monocytes # (Auto) (test code = 742-7) 0.3 0.2-0.8 [facility] CenterEosinophils # (Auto)2018-10-29 06:31:00* Test Item Value Reference Range Interpretation Comments Eosinophils # (Auto) (test code = 711-2) 0.1 0.0-0.4 [facility] CenterBasophils # (Auto)2018-10-29 06:31:00* Test Item Value Reference Range Interpretation Comments Basophils # (Auto) (test code = 704-7) 0.0 0.0-0.1 [facility] CenterAbsolute Immature Granulocyte (auto 2018-10-29 06:31:00* Test Item Value Reference Range Interpretation Comments Absolute Immature Granulocyte (auto (shin t code = Absolute Immature Granulocyte (auto) 0.04 0-0.1 [facility] Occult Dcujz5098-18-52 16:26:00* Test Item Value Reference Range Interpretation Comments Stool Occult Blood (test code = 2335-8) NEGATIVE NEGATIVE [facility] Occult Usejp6374-47-08 16:26:00* Test Item Value Reference Range Interpretation Comments Stool Occult Blood (test code = 2335-8) NEGATIVE NEGATIVE [facility] Occult Wkrrs4250-85-90 16:26:00* Test Item Value Reference Range Interpretation Comments Stool Occult Blood (test code = 2335-8) NEGATIVE NEGATIVE [facility] Occult Zscjm9625-21-25 16:26:00* Test Item Value Reference Range Interpretation Comments Stool Occult Blood (test code = 2335-8) NEGATIVE NEGATIVE [facility] Occult Shcde8314-36-77 16:26:00* Test Item Value Reference Range Interpretation Comments Stool Occult Blood (test code = 2335-8) NEGATIVE NEGATIVE [facility] Occult Oyics3511-54-92 16:26:00* Test Item Value Reference Range Interpretation Comments Stool Occult Blood (test code = 2335-8) NEGATIVE NEGATIVE [facility] Occult Ybdgl1127-99-97 16:26:00* Test Item Value Reference Range Interpretation Comments Stool Occult Blood (test code = 2335-8) NEGATIVE NEGATIVE [facility] Occult Pbtnd6581-39-43 16:26:00* Test Item Value Reference Range Interpretation Comments Stool Occult Blood (test code = 2335-8) NEGATIVE NEGATIVE [facility] gastrointestinal hemoglobin eliphiizy3353-10-33 15:53:00* Test Item Value Reference Range Interpretation Comments Stool Occult Blood (test code = 2335-8) NEGATIVE NEGATIVE [facility] gastrointestinal hemoglobin sppismbun3570-12-92 15:53:00* Test Item Value Reference Range Interpretation Comments Stool Occult Blood (test code = 2335-8) NEGATIVE NEGATIVE [facility] CenterUrine Ybhloxk0907-13-84 07:43:00* Test Item Value Reference Range Interpretation Comments Urine Culture (test code = 630-4) Organism: PSEUDOMONAS AERUGINOSA [facility] CenterUrine Grmanai0233-02-14 07:43:00* Test Item Value Reference Range Interpretation Comments Urine Culture (test code = 630-4) Organism: PSEUDOMONAS AERUGINOSA [facility] Yjvklzq7782-11-61 07:43:00* Test Item Value Reference Range Interpretation Comments Urine Culture (test code = 630-4) Organism: PSEUDOMONAS AERUGINOSA [facility] Keczzza1878-30-50 07:43:00* Test Item Value Reference Range Interpretation Comments Urine Culture (test code = 630-4) No Result Data Provided [facility] Nvxrqpn9361-17-85 07:43:00* Test Item Value Reference Range Interpretation Comments Urine Culture (test code = 630-4) No Result Data Provided [facility] CenterRENAL SCAN W/XCQMC7157-84-22 17:45:00 [place] [address] Patient Name: MANJIT LUO MR #: [id number] : 1980 Age/Sex: 38/M Req #: [id number] Adm Physician: ABHIJIT YODER MD Ordered by: CASTRO JALLOH MD Report #: [id number] Location: [place] [address] Room/Bed: [facility] Procedure: [id number] NM/RE NAL SCAN W/LASIX Exam Date: Exam [...] 1803 COPY TO: CASTRO JALLOH MD Urine Wvgkctv6514-90-29 14:00:00* Test Item Value Reference Range Interpretation Comments Urine Culture (test code = 630-4) Organism: STAPHYLOCOCCUS AUREUS [facility] CenterUrine Jfiukwg8902-98-37 14:00:00* Test Item Value Reference Range Interpretation Comments Urine Culture (test code = 630-4) Organism: STAPHYLOCOCCUS AUREUS [facility] CenterUrine Gwoogyo1948-83-22 14:00:00* Test Item Value Reference Range Interpretation Comments Urine Culture (test code = 630-4) Organism: STAPHYLOCOCCUS AUREUS [facility] CenterUrine Ueymaie6175-29-61 14:00:00* Test Item Value Reference Range Interpretation Comments Urine Culture (test code = 630-4) No Result Data Provided [facility] CenterUrine Aplhrhl6854-45-64 14:00:00* Test Item Value Reference Range Interpretation Comments Urine Culture (test code = 630-4) No Result Data Provided [facility] CenterFerritin2019-08-27 06:53:00* Test Item Value Reference Range Interpretation Comments Ferritin (test code = 2276-4) 242.22 21.81-274.66 [facility] CenterFerritin2019-08-27 06:53:00* Test Item Value Reference Range Interpretation Comments Ferritin (test code = 2276-4) 242.22 21.81-274.66 [facility] CenterFerritin2019-08-27 06:53:00* Test Item Value Reference Range Interpretation Comments Ferritin (test code = 2276-4) 242.22 21.81-274.66 [facility] CenterMagnesium Sbvhr6069-22-26 06:25:00* Test Item Value Reference Range Interpretation Comments Magnesium Level (test code = 66485-5) 1.2 1.3-2.1 L [facility] CenterIron Xoyyu5730-25-49 06:25:00* Test Item Value Reference Range Interpretation Comments Iron Level (test code = 2498-4) 66 65-175 [facility] CenterTotal Iron Binding Jezchwbm4050-95-94 06:25:00* Test Item Value Reference Range Interpretation Comments Total Iron Binding Capacity (test code = 2500-7) 197 261-4 78 L [facility] CenterPercent Iron Nqdasrenod6619-41-37 06:25:00* Test Item Value Reference Range Interpretation Comments Percent Iron Saturation (test code = 2502-3) 34 15-50 [facility] CenterTransferrin2019-08-27 06:25:00* Test Item Value Reference Range Interpretation Comments Transferrin (test code = 3034-6) 141 174-364 L [facility] CenterPhosphorus Bufti8457-17-82 12:53:00* Test Item Value Reference Range Interpretation Comments Phosphorus Level (test code = GFG0357) 5.0 2.3-4.7 H [facility] CenterCT ABDOMEN/PELVIS FQ3905-17-09 09:50:00 [place] [address] Patient Name: MANJIT LUO MR #: [id number] : 1980 Age/Sex: 38/M Req #: [id number] Adm Physician: ABHIJIT YODER MD Ordered by: ABHIJIT YODER MD Report #: [id number] Location: MED/SURG Room/Bed: 110 Procedure: [id number] CT/CT ABDOMEN/PELVIS WO Exam Date: 10/18/18 Exam [...] 10/18/2018 10:00 AM Dict ated By: DESTINY RIEVRA MD 1000 COPY TO: ABHIJIT YODER Ionized Qwqtorb1768-61-09 09:47:00* Test Item Value Reference Range Interpretation Comments Ionized Calcium (test code = 79358-5) 1.0 1.09-1.30 L [facility] CenterIonized Hzktcfd2389-52-88 09:47:00* Test Item Value Reference Range Interpretation Comments Ionized Calcium (test code = 99617-7) 1.0 1.09-1.30 L [facility] CenterIonized Hgtplkc0761-39-09 09:47:00* Test Item Value Reference Range Interpretation Comments Ionized Calcium (test code = 72980-6) 1.0 1.09-1.30 L [facility] CenterTotal Rdtqwcwxr0613-35-76 06:16:00* Test Item Value Reference Range Interpretation Comments Total Bilirubin (test code = 1975-2) 0.3 0.2-1.2 [facility] CenterAspartate Amino Transf (AST/SGOT) 2018-10-18 06:16:00* Test Item Value Reference Range Interpretation Comments Aspartate Amino Transf (AST/SGOT) (test code = Aspartate Amino Transf (AST/SGOT)) 118 5-34 H [facility] CenterAlanine Aminotransferase (ALT/SGPT) 2018-10-18 06:16:00* Test Item Value Reference Range Interpretation Comments Alanine Aminotransferase (ALT/SGPT) (test code = 1742-6) 107 0-55 H [facility] CenterTotal Wighuwf6183-25-60 06:16:00* Test Item Value Reference Range Interpretation Comments Total Protein (test code = 2885-2) 6.5 6.5-8.1 [facility] CenterAlbumin2019-08-26 06:16:00* Test Item Value Reference Range Interpretation Comments Albumin (test code = 1751-7) 2.7 3.5-5.0 L [facility] CenterGlobulin2019-08-26 06:16:00* Test Item Value Reference Range Interpretation Comments Globulin (test code = 73475-9) 3.8 2.3-3.5 H [facility] CenterAlbumin/Globulin Qxxpe1109-18-18 06:16:00 * Test Item Value Reference Range Interpretation Comments Albumin/Globulin Ratio (test code = 1759-0) 0.7 0.8-2.0 L [facility] CenterAlkaline Zfcqgavxbcp2061-42-46 06:16:00* Test Item Value Reference Range Interpretation Comments Alkaline Phosphatase (test code = 6768-6) 306 40-150 H [facility] CenterUrine Biznp0444-15-01 02:26:00* Test Item Value Reference Range Interpretation Comments Urine Color (test code = 5778-6) YELLOW YELLOW [facility] CenterUrine Rsmwxfc5205-20-24 02:26:00* Test Item Value Reference Range Interpretation Comments Urine Clarity (test code = 61841-5) CLOUDY CLEAR H [facility] CenterUrine Specific Sffcuzo5698-05-80 02:26:00 * Test Item Value Reference Range Interpretation Comments Urine Specific Hertel (test code = 5811-5) 1.020 1.010-1.02 5 [facility] CenterUrine bV0777-10-46 02:26:00* Test Item Value Reference Range Interpretation Comments Urine pH (test code = 53446-4) 6 5-7 [facility] Center[facility] Leukocyte Ffdgxkzu3366-62-11 02:26:00* Test Item Value Reference Range Interpretation Comments Urine Leukocyte Esterase (test code = 5799-2) 2+ NEGATIVE H [facility] Jhcvphf2153-93-99 02:26:00* Test Item Value Reference Range Interpretation Comments Urine Nitrite (test code = 63642-9) NEGATIVE NEGATIVE [facility] Mrhklsd3024-87-81 02:26:00* Test Item Value Reference Range Interpretation Comments Urine Protein (test code = 5804-0) 3+ NEGATIVE H [facility] CenterU[facility] Glucose (UA)2018-10-17 02:26:00* Test Item Value Reference Range Interpretation Comments Urine Glucose (UA) (test code = 2349-9) NEGATIVE NEGATIVE [facility] Rvazlid4045-24-77 02:26:00* Test Item Value Reference Range Interpretation Comments Urine Ketones (test code = 70309-9) NEGATIVE NEGATIVE [facility] CenterU[facility] Stxcqfrjkpcj3340-17-56 02:26:00* Test Item Value Reference Range Interpretation Comments Urine Urobilinogen (test code = 82035-5) 0.2 0.2-1 [facility] Isbhvthft4054-49-15 02:26:00* Test Item Value Reference Range Interpretation Comments Urine Bilirubin (test code = 1978-6) NEGATIVE NEGATIVE [facility] Jlmbx4179-75-55 02:26:00* Test Item Value Reference Range Interpretation Comments Urine Blood (test code = 09350-2) 3+ NEGATIVE H [facility] CenterU[facility] WFJ7391-20-24 02:26:00* Test Item Value Reference Range Interpretation Comments Urine WBC (test code = 5821-4) >50 0-5 H [facility] CenterU[facility] CRY7639-31-52 02:26:00* Test Item Value Reference Range Interpretation Comments Urine RBC (test code = 22900-3) >50 0-5 H [facility] CenterU[facility] Xzbfxlze7150-00-35 02:26:00* Test Item Value Reference Range Interpretation Comments Urine Bacteria (test code = 97529-3) MANY NONE H [facility] CenterUrine Epithelial Xislj4810-76-04 02:26:00 * Test Item Value Reference Range Interpretation Comments Urine Epithelial Cells (test code = 58413-5) MODERATE NONE [facility] Mesyz1195-96-24 13:40:00* Test Item Value Reference Range Interpretation Comments Sodium Level (test code = 2951-2) 142 136-145 [facility] CenterPotassium Gzeeb8556-76-18 13:40:00* Test Item Value Reference Range Interpretation Comments Potassium Level (test code = 2823-3) 4.4 3.5-5.1 [facility] CenterChloride Amqee4107-13-95 13:40:00* Test Item Value Reference Range Interpretation Comments Chloride Level (test code = 2075-0) 107 98-107 [facility] CenterCarbon Dioxide Fvboi6280-93-71 13:40:00* Test Item Value Reference Range Interpretation Comments Carbon Dioxide Level (test code = 2028-9) 25 22-29 [facility] CenterAnion Pje8204-68-90 13:40:00* Test Item Value Reference Range Interpretation Comments Anion Gap (test code = 10260-8) 14.4 8-16 [facility] CenterBlood Urea Mrezfafz1489-11-65 13:40:00* Test Item Value Reference Range Interpretation Comments Blood Urea Nitrogen (test code = 3094-0) 34 7-26 H [facility] CenterCreatinine2019-05-05 13:40:00* Test Item Value Reference Range Interpretation Comments Creatinine (test code = 2160-0) 2.63 0.72-1.25 H [facility] CenterBUN/Creatinine Jscft3950-61-44 13:40:00* Test Item Value Reference Range Interpretation Comments BUN/Creatinine Ratio (test code = 3097-3) 13 6-25 [facility] CenterEstimat Glomerular Filtration Rate 2018-06-27 13:40:00* Test Item Value Reference Range Interpretation Comments Estimat Glomerular Filtration Rate (test code = 332030107) 28 >60 L Ranges were taken from the National Kidney Disease Education Program and the [facility] Kidney Foundation literature.Reference ranges:60 or greater: Gcfiqe91-95 ( for 3 consecutive months): Chronic kidney disease 15 or less: Kidney failureCovenant Medical CenterGlucose Cbhpk5880-04-05 13:40:00* Test Item Value Reference Range Interpretation Comments Glucose Level (test code = LUB9583) 105 74-118 [facility] CenterCalcium Elinh9471-52-53 13:40:00* Test Item Value Reference Range Interpretation Comments Calcium Level (test code = 43270-4) 7.1 8.4-10.2 L [facility] CenterBedside Waagxkf6611-64-76 11:50:00* Test Item Value Reference Range Interpretation Comments Bedside Glucose (test code = 79010-1) 160 70-120 H Meter ID: [id number] [facility] 2018-[facility]-25 17:11:00* Test Item Value Reference Range Interpretation Comments Blood Culture (test code = 41133238) NO GROWTH AFTER 5 DAYS, FINAL REPORT [facility] CenterBlood Ddeovfe9618-10-72 17:11:00* Test Item Value Reference Range Interpretation Comments Blood Culture (test code = 91018820) NO GROWTH AFTER 5 DAYS, FINAL REPORT [facility] CenterWhite Blood Ounty6131-36-59 06:01:00* Test Item Value Reference Range Interpretation Comments White Blood Count (test code = 6690-2) 4.22 4.8-10.8 L [facility] CenterRed Blood Tbdsb5240-76-93 06:01:00* Test Item Value Reference Range Interpretation Comments Red Blood Count (test code = 789-8) 3.20 4.3-5.7 L [facility] CenterHemoglobin2019-05-03 06:01:00* Test Item Value Reference Range Interpretation Comments Hemoglobin (test code = 44173-3) 8.6 14.0-18.0 L [facility] CenterHematocrit2019-05-03 06:01:00* Test Item Value Reference Range Interpretation Comments Hematocrit (test code = 4544-3) 26.0 38.2-49.6 L [facility] CenterMean Corpuscular Metujp8658-06-63 06:01:00* Test Item Value Reference Range Interpretation Comments Mean Corpuscular Volume (test code = 787-2) 81.3 81-99 [facility] CenterMean Corpuscular Sdvvywdvxg4401-20-85 06:01:00* Test Item Value Reference Range Interpretation Comments Mean Corpuscular Hemoglobin (test code = 785-6) 26.9 28-32 L [facility] CenterMean Corpuscular Hemoglobin Concent 2018-06-25 06:01:00* Test Item Value Reference Range Interpretation Comments Mean Corpuscular Hemoglobin Concent (test code = 786-4) 33.1 31-35 [facility] CenterRed Cell Distribution Lynjt0536-89-01 06:01:00* Test Item Value Reference Range Interpretation Comments Red Cell Distribution Width (test code = 64688-2) 13.7 11.7 -14.4 [facility] CenterPlatelet Kwslo9441-03-62 06:01:00* Test Item Value Reference Range Interpretation Comments Platelet Count (test code = 777-3) 147 140-360 [facility] CenterNeutrophils (%) (Auto)2018-06-25 06:01:00 * Test Item Value Reference Range Interpretation Comments Neutrophils (%) (Auto) (test code = 05945-8) 56.1 38.7-80.0 [facility] CenterLymphocytes (%) (Auto)2018-06-25 06:01:00 * Test Item Value Reference Range Interpretation Comments Lymphocytes (%) (Auto) (test code = 736-9) 32.0 18.0-39.1 [facility] CenterMonocytes (%) (Auto)2018-06-25 06:01:00* Test Item Value Reference Range Interpretation Comments Monocytes (%) (Auto) (test code = 5905-5) 5.7 4.4-11.3 [facility] CenterEosinophils (%) (Auto)2018-06-25 06:01:00 * Test Item Value Reference Range Interpretation Comments Eosinophils (%) (Auto) (test code = 713-8) 3.8 0.0-6.0 [facility] CenterBasophils (%) (Auto)2018-06-25 06:01:00* Test Item Value Reference Range Interpretation Comments Basophils (%) (Auto) (test code = 706-2) 0.5 0.0-1.0 [facility] CenterIM GRANULOCYTES %2018-06-25 06:01:00* Test Item Value Reference Range Interpretation Comments IM GRANULOCYTES % (test code = IM GRANULOCYTES %) 1.9 0.0- 1.0 H [facility] CenterNeutrophils # (Auto)2018-06-25 06:01:00* Test Item Value Reference Range Interpretation Comments Neutrophils # (Auto) (test code = 751-8) 2.4 2.1-6.9 [facility] CenterLymphocytes # (Auto)2018-06-25 06:01:00* Test Item Value Reference Range Interpretation Comments Lymphocytes # (Auto) (test code = 30802-3) 1.4 1.0-3.2 [facility] CenterMonocytes # (Auto)2018-06-25 06:01:00* Test Item Value Reference Range Interpretation Comments Monocytes # (Auto) (test code = 742-7) 0.2 0.2-0.8 [facility] CenterEosinophils # (Auto)2018-06-25 06:01:00* Test Item Value Reference Range Interpretation Comments Eosinophils # (Auto) (test code = 711-2) 0.2 0.0-0.4 [facility] CenterBasophils # (Auto)2018-06-25 06:01:00* Test Item Value Reference Range Interpretation Comments Basophils # (Auto) (test code = 704-7) 0.0 0.0-0.1 [facility] CenterAbsolute Immature Granulocyte (auto 2018-06-25 06:01:00* Test Item Value Reference Range Interpretation Comments Absolute Immature Granulocyte (auto (shin t code = Absolute Immature Granulocyte (auto) 0.08 0-0.1 [facility] CenterFerritin2019-05-01 08:32:00* Test Item Value Reference Range Interpretation Comments Ferritin (test code = 2276-4) 273.51 21.81-274.66 [facility] CenterIron Fbiof0442-33-91 06:46:00* Test Item Value Reference Range Interpretation Comments Iron Level (test code = 2498-4) 71 65-175 [facility] CenterTotal Iron Binding Katnuuhb5101-41-70 06:46:00* Test Item Value Reference Range Interpretation Comments Total Iron Binding Capacity (test code = 2500-7) 217 261-4 78 L [facility] CenterPercent Iron Milsvtnbbj1973-82-54 06:46:00* Test Item Value Reference Range Interpretation Comments Percent Iron Saturation (test code = 2502-3) 33 15-50 [facility] CenterTransferrin2019-05-01 06:46:00* Test Item Value Reference Range Interpretation Comments Transferrin (test code = 3034-6) 155 174-364 L [facility] CenterPhosphorus Slsoh0764-55-94 06:11:00* Test Item Value Reference Range Interpretation Comments Phosphorus Level (test code = MOW0445) 4.8 2.3-4.7 H [facility] CenterMagnesium Gtrpl1248-24-22 06:11:00* Test Item Value Reference Range Interpretation Comments Magnesium Level (test code = 56009-1) 1.2 1.3-2.1 L [facility] CenterUrine Random Total Pbeowhu2401-40-16 18:31:00* Test Item Value Reference Range Interpretation Comments Urine Random Total Protein (test code = 2888-6) 227.6 1-14 H [facility] CenterUrine Protein/Creatinine Frkte7682-26-00 18:31:00* Test Item Value Reference Range Interpretation Comments Urine Protein/Creatinine Ratio (test code = 87730-5) 2.00 [facility] CenterUrine Random Total Fbewqgg7016-76-44 18:31:00* Test Item Value Reference Range Interpretation Comments Urine Random Total Protein (test code = 2888-6) 227.6 1-14 H [facility] CenterUrine Protein/Creatinine Xtryt5818-69-31 18:31:00* Test Item Value Reference Range Interpretation Comments Urine Protein/Creatinine Ratio (test code = 24073-5) 2.00 [facility] CenterUrine Random Total Szsbszj8106-63-79 18:31:00* Test Item Value Reference Range Interpretation Comments Urine Random Total Protein (test code = 2888-6) 227.6 1-14 H [facility] CenterUrine Protein/Creatinine Ttgcv7388-31-09 18:31:00* Test Item Value Reference Range Interpretation Comments Urine Protein/Creatinine Ratio (test code = 12615-5) 2.00 [facility] CenterUrine Random Total Wdwjfkd5463-98-39 18:31:00* Test Item Value Reference Range Interpretation Comments Urine Random Total Protein (test code = 2888-6) 227.6 1-14 H [facility] CenterUrine Protein/Creatinine Wbxmf3611-28-24 18:31:00* Test Item Value Reference Range Interpretation Comments Urine Protein/Creatinine Ratio (test code = 24277-2) 2.00 [facility] CenterUrine Random Total Imskjjb0958-85-67 18:31:00* Test Item Value Reference Range Interpretation Comments Urine Random Total Protein (test code = 2888-6) 227.6 1-14 H [facility] CenterUrine Protein/Creatinine Qerpr8184-42-38 18:31:00* Test Item Value Reference Range Interpretation Comments Urine Protein/Creatinine Ratio (test code = 24829-7) 2.00 [facility] CenterUrine Random Total Ouyigwf5485-79-15 18:31:00* Test Item Value Reference Range Interpretation Comments Urine Random Total Protein (test code = 2888-6) 227.6 1-14 H [facility] CenterUrine Protein/Creatinine Furif5772-09-02 18:31:00* Test Item Value Reference Range Interpretation Comments Urine Protein/Creatinine Ratio (test code = 26160-7) 2.00 [facility] CenterUrine Otedochivz5834-63-44 18:19:00* Test Item Value Reference Range Interpretation Comments Urine Creatinine (test code = 2161-8) 76.55 63-166 [facility] CenterUrine Hfpexacrrt2105-75-64 18:19:00* Test Item Value Reference Range Interpretation Comments Urine Creatinine (test code = 2161-8) 76.55 63-166 [facility] CenterUrine Mruzfodkrh0245-78-49 18:19:00* Test Item Value Reference Range Interpretation Comments Urine Creatinine (test code = 2161-8) 76.55 63-166 [facility] CenterUrine Ndyeftkydu7657-58-72 18:19:00* Test Item Value Reference Range Interpretation Comments Urine Creatinine (test code = 2161-8) 76.55 63-166 [facility] CenterUrine Oqjuijimyv8854-57-75 18:19:00* Test Item Value Reference Range Interpretation Comments Urine Creatinine (test code = 2161-8) 76.55 63-166 [facility] CenterUrine Ofugkboxug4046-99-69 18:19:00* Test Item Value Reference Range Interpretation Comments Urine Creatinine (test code = 2161-8) 76.55 63-166 [facility] CenterTotal Txbdnxdgh7029-59-12 06:25:00* Test Item Value Reference Range Interpretation Comments Total Bilirubin (test code = 1975-2) 0.2 0.2-1.2 [facility] CenterAspartate Amino Transf (AST/SGOT) 2018-06-22 06:25:00* Test Item Value Reference Range Interpretation Comments Aspartate Amino Transf (AST/SGOT) (test code = Aspartate Amino Transf (AST/SGOT)) 86 5-34 H [facility] CenterAlanine Aminotransferase (ALT/SGPT) 2018-06-22 06:25:00* Test Item Value Reference Range Interpretation Comments Alanine Aminotransferase (ALT/SGPT) (test code = 1742-6) 76 0-55 H [facility] CenterTotal Tghstpn9864-96-39 06:25:00* Test Item Value Reference Range Interpretation Comments Total Protein (test code = 2885-2) 6.8 6.5-8.1 [facility] CenterAlbumin2019-04-30 06:25:00* Test Item Value Reference Range Interpretation Comments Albumin (test code = 1751-7) 2.1 3.5-5.0 L [facility] CenterGlobulin2019-04-30 06:25:00* Test Item Value Reference Range Interpretation Comments Globulin (test code = 51599-6) 4.7 2.3-3.5 H [facility] CenterAlbumin/Globulin Ueqeg6041-26-09 06:25:00 * Test Item Value Reference Range Interpretation Comments Albumin/Globulin Ratio (test code = 1759-0) 0.4 0.8-2.0 L [facility] CenterAlkaline Lvlycciamuw7787-93-02 06:25:00* Test Item Value Reference Range Interpretation Comments Alkaline Phosphatase (test code = 6768-6) 265 40-150 H [facility] CenterHemoglobin A1c Qwymypy8249-82-74 06:11:00 * Test Item Value Reference Range Interpretation Comments Hemoglobin A1c Percent (test code = Hemoglobin A1c Percent) 5.7 4.0-7.0 [facility] CenterHemoglobin A1c Iqohokp4413-17-57 06:11:00 * Test Item Value Reference Range Interpretation Comments Hemoglobin A1c Percent (test code = Hemoglobin A1c Percent) 5.7 4.0-7.0 [facility] CenterHemoglobin A1c Ekavdzm4264-10-66 06:11:00 * Test Item Value Reference Range Interpretation Comments Hemoglobin A1c Percent (test code = Hemoglobin A1c Percent) 5.7 4.0-7.0 [facility] CenterHemoglobin A1c Imaksvu6303-05-51 06:11:00 * Test Item Value Reference Range Interpretation Comments Hemoglobin A1c Percent (test code = Hemoglobin A1c Percent) 5.7 4.0-7.0 [facility] CenterHemoglobin A1c Rmgtjth7055-74-04 06:11:00 * Test Item Value Reference Range Interpretation Comments Hemoglobin A1c Percent (test code = Hemoglobin A1c Percent) 5.7 4.0-7.0 [facility] CenterHemoglobin A1c Ylqxnwv2335-76-89 06:11:00 * Test Item Value Reference Range Interpretation Comments Hemoglobin A1c Percent (test code = Hemoglobin A1c Percent) 5.7 4.0-7.0 [facility] CenterVitamin B12 Immeh0553-42-59 11:07:00* Test Item Value Reference Range Interpretation Comments Vitamin B12 Level (test code = 68192-0) 403 213-816 [facility] CenterFolate2019-04-29 11:07:00* Test Item Value Reference Range Interpretation Comments Folate (test code = 2284-8) 7.2 7.0-15.4 [facility] CenterVitamin B12 Ysqxd6032-97-70 11:07:00* Test Item Value Reference Range Interpretation Comments Vitamin B12 Level (test code = 29909-2) 403 213-816 [facility] CenterFolate2019-04-29 11:07:00* Test Item Value Reference Range Interpretation Comments Folate (test code = 2284-8) 7.2 7.0-15.4 [facility] CenterVitamin B12 Snjmh5063-42-91 11:07:00* Test Item Value Reference Range Interpretation Comments Vitamin B12 Level (test code = 56236-8) 403 213-816 [facility] CenterFolate2019-04-29 11:07:00* Test Item Value Reference Range Interpretation Comments Folate (test code = 2284-8) 7.2 7.0-15.4 [facility] CenterVitamin B12 Pjyxk6440-81-29 11:07:00* Test Item Value Reference Range Interpretation Comments Vitamin B12 Level (test code = 16554-7) 403 213-816 [facility] CenterFolate2019-04-29 11:07:00* Test Item Value Reference Range Interpretation Comments Folate (test code = 2284-8) 7.2 7.0-15.4 [facility] CenterVitamin B12 Jjwzz4698-20-04 11:07:00* Test Item Value Reference Range Interpretation Comments Vitamin B12 Level (test code = 10578-2) 403 213-816 [facility] CenterFolate2019-04-29 11:07:00* Test Item Value Reference Range Interpretation Comments Folate (test code = 2284-8) 7.2 7.0-15.4 [facility] CenterVitamin B12 Vclza3003-47-14 11:07:00* Test Item Value Reference Range Interpretation Comments Vitamin B12 Level (test code = 01850-4) 403 213-816 [facility] CenterFolate2019-04-29 11:07:00* Test Item Value Reference Range Interpretation Comments Folate (test code = 2284-8) 7.2 7.0-15.4 [facility] CenterThyroid Stimulating Hormone (TSH) 2018-06-21 11:06:00* Test Item Value Reference Range Interpretation Comments Thyroid Stimulating Hormone (TSH) (test code = 66437-0) 2.156 0.350-4.940 [facility] CenterThyroid Stimulating Hormone (TSH) 2018-06-21 11:06:00* Test Item Value Reference Range Interpretation Comments Thyroid Stimulating Hormone (TSH) (test code = 89511-6) 2.156 0.350-4.940 [facility] CenterThyroid Stimulating Hormone (TSH) 2018-06-21 11:06:00* Test Item Value Reference Range Interpretation Comments Thyroid Stimulating Hormone (TSH) (test code = 71433-0) 2.156 0.350-4.940 [facility] CenterThyroid Stimulating Hormone (TSH) 2018-06-21 11:06:00* Test Item Value Reference Range Interpretation Comments Thyroid Stimulating Hormone (TSH) (test code = 94137-2) 2.156 0.350-4.940 [facility] CenterThyroid Stimulating Hormone (TSH) 2018-06-21 11:06:00* Test Item Value Reference Range Interpretation Comments Thyroid Stimulating Hormone (TSH) (test code = 11867-9) 2.156 0.350-4.940 [facility] CenterThyroid Stimulating Hormone (TSH) 2018-06-21 11:06:00* Test Item Value Reference Range Interpretation Comments Thyroid Stimulating Hormone (TSH) (test code = 04271-7) 2.156 0.350-4.940 [facility] CenterUrine TIL4181-27-09 17:46:00* Test Item Value Reference Range Interpretation Comments Urine WBC (test code = 5821-4) >50 0-5 H [facility] CenterUrine CRF6508-45-13 17:46:00* Test Item Value Reference Range Interpretation Comments Urine RBC (test code = 30643-3) >50 0-5 H [facility] CenterUrine Odcohdco9917-07-65 17:46:00* Test Item Value Reference Range Interpretation Comments Urine Bacteria (test code = 02993-4) MANY NONE H [facility] CenterUrine Epithelial Bwmer0629-98-46 17:46:00 * Test Item Value Reference Range Interpretation Comments Urine Epithelial Cells (test code = 86623-6) FEW NONE [facility] CenterUrine Fine Granular Hrbyi2272-10-53 17:46:00* Test Item Value Reference Range Interpretation Comments Urine Fine Granular Casts (test code = 79534-5) 1-5 >0 H [facility] CenterUrine Coarse Granular Fshic0122-89-09 17:46:00* Test Item Value Reference Range Interpretation Comments Urine Coarse Granular Casts (test code = 62318-8) 1-5 >0 H [facility] CenterUrine Fine Granular Nogsh5129-23-62 17:46:00* Test Item Value Reference Range Interpretation Comments Urine Fine Granular Casts (test code = 37155-7) 1-5 >0 H [facility] CenterUrine Coarse Granular Sjpmu1424-99-17 17:46:00* Test Item Value Reference Range Interpretation Comments Urine Coarse Granular Casts (test code = 47459-6) 1-5 >0 H [facility] CenterUrine Fine Granular Rrzvq6121-78-02 17:46:00* Test Item Value Reference Range Interpretation Comments Urine Fine Granular Casts (test code = 17568-9) 1-5 >0 H [facility] CenterUrine Coarse Granular Srata1067-98-45 17:46:00* Test Item Value Reference Range Interpretation Comments Urine Coarse Granular Casts (test code = 59967-1) 1-5 >0 H [facility] CenterUrine Fine Granular Scudb3158-30-76 17:46:00* Test Item Value Reference Range Interpretation Comments Urine Fine Granular Casts (test code = 29572-0) 1-5 >0 H [facility] CenterUrine Coarse Granular Cpbyz7989-10-77 17:46:00* Test Item Value Reference Range Interpretation Comments Urine Coarse Granular Casts (test code = 80662-0) 1-5 >0 H [facility] CenterUrine Fine Granular Umwrf5559-75-58 17:46:00* Test Item Value Reference Range Interpretation Comments Urine Fine Granular Casts (test code = 65263-0) 1-5 >0 H [facility] CenterUrine Coarse Granular Gopwi7983-45-79 17:46:00* Test Item Value Reference Range Interpretation Comments Urine Coarse Granular Casts (test code = 60971-4) 1-5 >0 H [facility] CenterUrine Fine Granular Wtflv2729-65-57 17:46:00* Test Item Value Reference Range Interpretation Comments Urine Fine Granular Casts (test code = 37548-8) 1-5 >0 H [facility] CenterUrine Coarse Granular Nuqsi0180-64-99 17:46:00* Test Item Value Reference Range Interpretation Comments Urine Coarse Granular Casts (test code = 28536-5) 1-5 >0 H [facility] CenterUrine Yseba2679-46-00 17:30:00* Test Item Value Reference Range Interpretation Comments Urine Color (test code = 5778-6) YELLOW YELLOW [facility] Ptaeyac7202-06-91 17:30:00* Test Item Value Reference Range Interpretation Comments Urine Clarity (test code = 51098-5) CLOUDY CLEAR H [facility] CenterUrine Specific Cgstzvc3473-29-54 17:30:00 * Test Item Value Reference Range Interpretation Comments Urine Specific Hertel (test code = 5811-5) 1.020 1.010-1.02 5 [facility] CenterU[facility] lJ9293-32-00 17:30:00* Test Item Value Reference Range Interpretation Comments Urine pH (test code = 59834-5) 6 5-7 [facility] CenterU[facility] Leukocyte Sgedzteu4091-73-53 17:30:00* Test Item Value Reference Range Interpretation Comments Urine Leukocyte Esterase (test code = 5799-2) 1+ NEGATIVE H [facility] Blddrsx3350-31-77 17:30:00* Test Item Value Reference Range Interpretation Comments Urine Nitrite (test code = 69730-8) NEGATIVE NEGATIVE [facility] Yemjbkx5582-71-22 17:30:00* Test Item Value Reference Range Interpretation Comments Urine Protein (test code = 5804-0) 3+ NEGATIVE H [facility] Glucose (UA)2018-06-20 17:30:00* Test Item Value Reference Range Interpretation Comments Urine Glucose (UA) (test code = 2349-9) 1+ NEGATIVE H [facility] CenterUrine Lkluodu0987-96-64 17:30:00* Test Item Value Reference Range Interpretation Comments Urine Ketones (test code = 96608-3) NEGATIVE NEGATIVE [facility] Nddaswpkejvj6585-49-85 17:30:00* Test Item Value Reference Range Interpretation Comments Urine Urobilinogen (test code = 23990-1) 0.2 0.2-1 [facility] Ivvjhwtvn5545-39-59 17:30:00* Test Item Value Reference Range Interpretation Comments Urine Bilirubin (test code = 1978-6) NEGATIVE NEGATIVE [facility] CenterU[facility] Otlfg3810-03-68 17:30:00* Test Item Value Reference Range Interpretation Comments Urine Blood (test code = 18544-4) 4+ NEGATIVE H [facility] CenterBedside Zzaxefx5266-10-70 16:10:00* Test Item Value Reference Range Interpretation Comments Bedside Glucose (test code = 17847-5) 72 70-120 Meter ID: [id number] [facility] Culture 2018-05-07 07:13:00* Test Item Value Reference Range Interpretation Comments Urine Culture (test code = 630-4) Organism: PSEUDOMONAS AERUGINOSA [facility] Rmkybis6761-58-48 07:13:00* Test Item Value Reference Range Interpretation Comments Urine Culture (test code = 630-4) Organism: PSEUDOMONAS AERUGINOSA [facility] Xrckwdu1608-45-25 07:13:00* Test Item Value Reference Range Interpretation Comments Urine Culture (test code = 630-4) Organism: PSEUDOMONAS AERUGINOSA [facility] Csozzlh2556-82-34 07:13:00* Test Item Value Reference Range Interpretation Comments Urine Culture (test code = 630-4) Organism: PSEUDOMONAS AERUGINOSA [facility]2019-03-15 07:13:00* Test Item Value Reference Range Interpretation Comments Urine Culture (test code = 630-4) Organism: PSEUDOMONAS AERUGINOSA [facility] Kidvtkg6437-57-06 07:13:00* Test Item Value Reference Range Interpretation Comments Urine Culture (test code = 630-4) No Result Data Provided [facility] Jlmid7480-57-15 06:43:00* Test Item Value Reference Range Interpretation Comments Sodium Level (test code = 2951-2) 136 136-145 [facility]Pot[facility] Taszw9846-39-68 06:43:00* Test Item Value Reference Range Interpretation Comments Potassium Level (test code = 2823-3) 5.2 3.5-5.1 H [facility] CenterChloride Wtiau8148-09-25 06:43:00* Test Item Value Reference Range Interpretation Comments Chloride Level (test code = 2075-0) 111 98-107 H [facility] CenterCarbon Dioxide Dkvmp5953-75-46 06:43:00* Test Item Value Reference Range Interpretation Comments Carbon Dioxide Level (test code = 2028-9) 21 22-29 L [facility] CenterAnion Ehj9141-10-36 06:43:00* Test Item Value Reference Range Interpretation Comments Anion Gap (test code = 97168-6) 9.2 8-16 [facility] CenterBlood Urea Iuczhxck3372-06-44 06:43:00* Test Item Value Reference Range Interpretation Comments Blood Urea Nitrogen (test code = 3094-0) 26 7-26 [facility] CenterCreatinine2019-03-14 06:43:00* Test Item Value Reference Range Interpretation Comments Creatinine (test code = 2160-0) 2.22 0.72-1.25 H [facility] CenterBUN/Creatinine Iujxl2713-98-81 06:43:00* Test Item Value Reference Range Interpretation Comments BUN/Creatinine Ratio (test code = 3097-3) 12 6-25 [facility] CenterEstimat Glomerular Filtration Rate 2018-05-06 06:43:00* Test Item Value Reference Range Interpretation Comments Estimat Glomerular Filtration Rate (test code = 180237277) 33 >60 L Ranges were taken from the National Kidney Disease Education Program and the [facility] literature.Reference ranges:60 or greater: Eujqid90-86 ( for 3 consecutive months): Chronic kidney disease 15 or less: Kidney failureCovenant Medical CenterGlucose Vdeuv1901-67-40 06:43:00* Test Item Value Reference Range Interpretation Comments Glucose Level (test code = XHZ1422) 144 74-118 H [facility] CenterCalcium Kjddp5436-08-24 06:43:00* Test Item Value Reference Range Interpretation Comments Calcium Level (test code = 96343-3) 6.5 8.4-10.2 LL Results repeated and called to RANULFO ALATORRE RN at 0641 on 05/06/18 by Morenita Guy. Read back and verified.[facility] CenterWhite Blood Rryyx1002-87-53 06:20:00* Test Item Value Reference Range Interpretation Comments White Blood Count (test code = 6690-2) 3.55 4.8-10.8 L [facility] CenterRed Blood Viuyf3474-93-60 06:20:00* Test Item Value Reference Range Interpretation Comments Red Blood Count (test code = 789-8) 3.25 4.3-5.7 L [facility] CenterHemoglobin2019-03-14 06:20:00* Test Item Value Reference Range Interpretation Comments Hemoglobin (test code = 99662-0) 8.6 14.0-18.0 L [facility] CenterHematocrit2019-03-14 06:20:00* Test Item Value Reference Range Interpretation Comments Hematocrit (test code = 4544-3) 27.2 38.2-49.6 L [facility] CenterMean Corpuscular Nrgdwx6827-07-57 06:20:00* Test Item Value Reference Range Interpretation Comments Mean Corpuscular Volume (test code = 787-2) 83.7 81-99 [facility] CenterMean Corpuscular Inyloiduww5465-50-50 06:20:00* Test Item Value Reference Range Interpretation Comments Mean Corpuscular Hemoglobin (test code = 785-6) 26.5 28-32 L [facility] CenterMean Corpuscular Hemoglobin Concent 2018-05-06 06:20:00* Test Item Value Reference Range Interpretation Comments Mean Corpuscular Hemoglobin Concent (test code = 786-4) 31.6 31-35 [facility] CenterRed Cell Distribution Awocw7865-41-67 06:20:00* Test Item Value Reference Range Interpretation Comments Red Cell Distribution Width (test code = 48603-5) 14.6 11.7 -14.4 H [facility] CenterPlatelet Xrtus8227-16-11 06:20:00* Test Item Value Reference Range Interpretation Comments Platelet Count (test code = 777-3) 113 140-360 L [facility] CenterNeutrophils (%) (Auto)2018-05-06 06:20:00 * Test Item Value Reference Range Interpretation Comments Neutrophils (%) (Auto) (test code = 40922-9) 59.6 38.7-80.0 [facility] CenterLymphocytes (%) (Auto)2018-05-06 06:20:00 * Test Item Value Reference Range Interpretation Comments Lymphocytes (%) (Auto) (test code = 736-9) 24.8 18.0-39.1 [facility] CenterMonocytes (%) (Auto)2018-05-06 06:20:00* Test Item Value Reference Range Interpretation Comments Monocytes (%) (Auto) (test code = 5905-5) 8.5 4.4-11.3 [facility] CenterEosinophils (%) (Auto)2018-05-06 06:20:00 * Test Item Value Reference Range Interpretation Comments Eosinophils (%) (Auto) (test code = 713-8) 5.1 0.0-6.0 [facility] CenterBasophils (%) (Auto)2018-05-06 06:20:00* Test Item Value Reference Range Interpretation Comments Basophils (%) (Auto) (test code = 706-2) 0.6 0.0-1.0 [facility] CenterIM GRANULOCYTES %2018-05-06 06:20:00* Test Item Value Reference Range Interpretation Comments IM GRANULOCYTES % (test code = IM GRANULOCYTES %) 1.4 0.0- 1.0 H [facility] CenterNeutrophils # (Auto)2018-05-06 06:20:00* Test Item Value Reference Range Interpretation Comments Neutrophils # (Auto) (test code = 751-8) 2.1 2.1-6.9 [facility] CenterLymphocytes # (Auto)2018-05-06 06:20:00* Test Item Value Reference Range Interpretation Comments Lymphocytes # (Auto) (test code = 71977-6) 0.9 1.0-3.2 L [facility] CenterMonocytes # (Auto)2018-05-06 06:20:00* Test Item Value Reference Range Interpretation Comments Monocytes # (Auto) (test code = 742-7) 0.3 0.2-0.8 [facility] CenterEosinophils # (Auto)2018-05-06 06:20:00* Test Item Value Reference Range Interpretation Comments Eosinophils # (Auto) (test code = 711-2) 0.2 0.0-0.4 [facility] CenterBasophils # (Auto)2018-05-06 06:20:00* Test Item Value Reference Range Interpretation Comments Basophils # (Auto) (test code = 704-7) 0.0 0.0-0.1 [facility] CenterAbsolute Immature Granulocyte (auto 2018-05-06 06:20:00* Test Item Value Reference Range Interpretation Comments Absolute Immature Granulocyte (auto (shin t code = Absolute Immature Granulocyte (auto) 0.05 0-0.1 [facility] CenterTotal Zczhtwmus5144-10-66 06:21:00* Test Item Value Reference Range Interpretation Comments Total Bilirubin (test code = 1975-2) 0.2 0.2-1.2 [facility] CenterAspartate Amino Transf (AST/SGOT) 2018-05-05 06:21:00* Test Item Value Reference Range Interpretation Comments Aspartate Amino Transf (AST/SGOT) (test code = Aspartate Amino Transf (AST/SGOT)) 31 5-34 [facility] CenterAlanine Aminotransferase (ALT/SGPT) 2018-05-05 06:21:00* Test Item Value Reference Range Interpretation Comments Alanine Aminotransferase (ALT/SGPT) (test code = 1742-6) 44 0-55 [facility] CenterTotal Bohszss4439-52-31 06:21:00* Test Item Value Reference Range Interpretation Comments Total Protein (test code = 2885-2) 6.6 6.5-8.1 [facility] CenterAlbumin2019-03-13 06:21:00* Test Item Value Reference Range Interpretation Comments Albumin (test code = 1751-7) 2.4 3.5-5.0 L [facility] CenterGlobulin2019-03-13 06:21:00* Test Item Value Reference Range Interpretation Comments Globulin (test code = 02970-2) 4.2 2.3-3.5 H [facility] CenterAlbumin/Globulin Hovzx3507-69-38 06:21:00 * Test Item Value Reference Range Interpretation Comments Albumin/Globulin Ratio (test code = 1759-0) 0.6 0.8-2.0 L [facility] CenterAlkaline Tvdxqheyqyf8154-47-50 06:21:00* Test Item Value Reference Range Interpretation Comments Alkaline Phosphatase (test code = 6768-6) 272 40-150 H [facility] CenterUrine Rdazp5826-28-42 01:32:00* Test Item Value Reference Range Interpretation Comments Urine Color (test code = 5778-6) YELLOW YELLOW [facility] CenterUrine Stjmsjw1692-32-74 01:32:00* Test Item Value Reference Range Interpretation Comments Urine Clarity (test code = 30270-3) CLOUDY CLEAR H [facility] CenterUrine Specific Ccraxzi0295-85-36 01:32:00 * Test Item Value Reference Range Interpretation Comments Urine Specific Hertel (test code = 5811-5) 1.025 1.010-1.02 5 [facility] CenterUrine nW0600-56-61 01:32:00* Test Item Value Reference Range Interpretation Comments Urine pH (test code = 47363-2) 6 5-7 [facility] CenterUrine Leukocyte Iftuovsv8345-10-68 01:32:00* Test Item Value Reference Range Interpretation Comments Urine Leukocyte Esterase (test code = 5799-2) 2+ NEGATIVE [facility] Jduaghd0048-10-70 01:32:00* Test Item Value Reference Range Interpretation Comments Urine Nitrite (test code = 68345-7) POSITIVE NEGATIVE [facility] Vgbypvy2617-67-80 01:32:00* Test Item Value Reference Range Interpretation Comments Urine Protein (test code = 5804-0) 3+ NEGATIVE [facility] Glucose (UA)2018-05-04 01:32:00* Test Item Value Reference Range Interpretation Comments Urine Glucose (UA) (test code = 2349-9) 1+ NEGATIVE [facility] Gzrsucb6559-37-51 01:32:00* Test Item Value Reference Range Interpretation Comments Urine Ketones (test code = 85322-9) NEGATIVE NEGATIVE [facility] CenterUrine Yyybozfznhwd4712-65-68 01:32:00* Test Item Value Reference Range Interpretation Comments Urine Urobilinogen (test code = 88384-8) 0.2 0.2-1 [facility] CenterUrine Iuizxbeos4805-92-76 01:32:00* Test Item Value Reference Range Interpretation Comments Urine Bilirubin (test code = 1978-6) NEGATIVE NEGATIVE [facility] CenterUrine Ultmm9455-41-45 01:32:00* Test Item Value Reference Range Interpretation Comments Urine Blood (test code = 26312-6) 4+ NEGATIVE H [facility] CenterUrine ZCM5638-11-27 01:32:00* Test Item Value Reference Range Interpretation Comments Urine WBC (test code = 5821-4) >50 0-5 H [facility] CenterUrine MQY4796-03-97 01:32:00* Test Item Value Reference Range Interpretation Comments Urine RBC (test code = 77517-8) 21-50 0-5 H [facility] CenterUrine Ivyeajxl4906-67-70 01:32:00* Test Item Value Reference Range Interpretation Comments Urine Bacteria (test code = 59734-1) MANY NONE H [facility] CenterUrine Epithelial Nnhll1790-97-59 01:32:00 * Test Item Value Reference Range Interpretation Comments Urine Epithelial Cells (test code = 44161-0) RARE NONE [facility] CenterInfluenza Virus Types A,B Antigen 2018-05-04 01:16:00* Test Item Value Reference Range Interpretation Comments Influenza Virus Types A,B Antigen (test code = 04348-0) NEGATIVE NEGATIVE [facility] CenterGroup A Streptococcus Zogilj3328-92-58 01:16:00* Test Item Value Reference Range Interpretation Comments Group A Streptococcus Screen (test code = 58924-6) NEGATIVE NEG ATIVE [facility] CenterInfluenza Virus Types A,B Antigen 2018-05-04 01:16:00* Test Item Value Reference Range Interpretation Comments Influenza Virus Types A,B Antigen (test code = 48773-8) NEGATIVE NEGATIVE [facility] CenterGroup A Streptococcus Skzied8850-39-50 01:16:00* Test Item Value Reference Range Interpretation Comments Group A Streptococcus Screen (test code = 37393-1) NEGATIVE NEG ATIVE [facility] CenterInfluenza Virus Types A,B Antigen 2018-05-04 01:16:00* Test Item Value Reference Range Interpretation Comments Influenza Virus Types A,B Antigen (test code = 79226-7) NEGATIVE NEGATIVE [facility] CenterGroup A Streptococcus Vnhazo6764-50-12 01:16:00* Test Item Value Reference Range Interpretation Comments Group A Streptococcus Screen (test code = 09836-2) NEGATIVE NEG ATIVE [facility] CenterInfluenza Virus Types A,B Antigen 2018-05-04 01:16:00* Test Item Value Reference Range Interpretation Comments Influenza Virus Types A,B Antigen (test code = 37015-9) NEGATIVE NEGATIVE [facility] CenterGroup A Streptococcus Aliaqf5110-84-99 01:16:00* Test Item Value Reference Range Interpretation Comments Group A Streptococcus Screen (test code = 81256-6) NEGATIVE NEG ATIVE [facility] CenterInfluenza Virus Types A,B Antigen 2018-05-04 01:16:00* Test Item Value Reference Range Interpretation Comments Influenza Virus Types A,B Antigen (test code = 23346-4) NEGATIVE NEGATIVE [facility] CenterGroup A Streptococcus Prayxk3065-89-71 01:16:00* Test Item Value Reference Range Interpretation Comments Group A Streptococcus Screen (test code = 27292-7) NEGATIVE NEG ATIVE [facility] CenterInfluenza Virus Types A,B Antigen 2018-05-04 01:16:00* Test Item Value Reference Range Interpretation Comments Influenza Virus Types A,B Antigen (test code = 10078-5) NEGATIVE NEGATIVE [facility] CenterGroup A Streptococcus Csehig4940-42-77 01:16:00* Test Item Value Reference Range Interpretation Comments Group A Streptococcus Screen (test code = 08720-4) NEGATIVE NEG ATIVE [facility] CenterCT ABDOMEN/PELVIS XT2491-70-95 18:18:00 [place] [address] Patient Name: MANJIT LUO MR #: [id number] : 1980 Age/Sex: 37/M Req #: [id number] Adm Physician: Ordered by: NORY LEYVA FLAT HAMMERER Report #: [id number] Location: ER Room/Bed: Procedure: 0311-[address]/CT [...] 6:38 PM Dictated By: ISMA FATIMA MD Electroni sydnie Signed By: ISMA FATIMA MD on 05/03/181837 Transcribed By: TIFFANY on 05/03/181837 COPY TO: NORY LEYVA NP CHEST SINGLE (NOT PORTABLE)2018-05-03 16:44:00 [place] [address] Patient Name: MANJIT LUO MR #: [id number] : 1980 Age/Sex: 37/M Req #: [id number] Adm Physician: Ordered by: NORY LEYVA FLAT HAMMERER Report #: [id number] Location: ER Room/Bed: Procedure: 0311-007 2 DX/CHEST [...] 05/03/181644 COPY TO: NORY LEYVA NP Amylase Zabfj1958-83-75 15:32:00* Test Item Value Reference Range Interpretation Comments Amylase Level (test code = 1798-8) 62 [facility] CenterLipase2019-03-11 15:32:00* Test Item Value Reference Range Interpretation Comments Lipase (test code = 3040-3) [facility] CenterAmylase Ablft5384-85-66 15:32:00* Test Item Value Reference Range Interpretation Comments Amylase Level (test code = 1798-8) 62 [facility] CenterLipase2019-03-11 15:32:00* Test Item Value Reference Range Interpretation Comments Lipase (test code = 3040-3) [facility] CenterAmylase Amins9331-07-77 15:32:00* Test Item Value Reference Range Interpretation Comments Amylase Level (test code = 1798-8) 62 [facility] CenterLipase2019-03-11 15:32:00* Test Item Value Reference Range Interpretation Comments Lipase (test code = 3040-3) [facility] Zugrq6188-58-90 15:32:00* Test Item Value Reference Range Interpretation Comments Amylase Level (test code = 1798-8) 62 [facility] CenterLipase2019-03-11 15:32:00* Test Item Value Reference Range Interpretation Comments Lipase (test code = 3040-3) [facility] CenterAmylase Tvvkd0968-86-10 15:32:00* Test Item Value Reference Range Interpretation Comments Amylase Level (test code = 1798-8) 62 [facility] CenterLipase2019-03-11 15:32:00* Test Item Value Reference Range Interpretation Comments Lipase (test code = 3040-3) 14 -78 [facility] CenterAmylase Ddwny6477-40-31 15:32:00* Test Item Value Reference Range Interpretation Comments Amylase Level (test code = 1798-8) 62 25-125 [facility] CenterLipase2019-03-11 15:32:00* Test Item Value Reference Range Interpretation Comments Lipase (test code = 3040-3) 14 78 [facility] CenterBlood Exwjglr6942-13-45 01:39:00* Test Item Value Reference Range Interpretation Comments Blood Culture (test code = 70597464) NO GROWTH AFTER 5 DAYS, FINAL REPORT [facility] CenterBedside Gacjtrl7096-38-59 08:10:00* Test Item Value Reference Range Interpretation Comments Bedside Glucose (test code = 25264-5) 190 70-120 H Meter ID: [id number] Medical CenterUrine Culture 2017-09-01 06:38:00* Test Item Value Reference Range Interpretation Comments Urine Culture (test code = 630-4) Organism: PSEUDOMONAS AERUGINOSA [facility] CenterUrine Fnqsfsg9603-35-17 06:38:00* Test Item Value Reference Range Interpretation Comments Urine Culture (test code = 630-4) Organism: PSEUDOMONAS AERUGINOSA [facility] CenterUrine Utfkbnp7929-58-19 06:38:00* Test Item Value Reference Range Interpretation Comments Urine Culture (test code = 630-4) Organism: [facility] Agdchxm2296-77-02 01:39:00* Test Item Value Reference Range Interpretation Comments Blood Culture (test code = 74409807) NO GROWTH AFTER 72 HOURS [facility] Wcqxr2905-29-14 05:13:00* Test Item Value Reference Range Interpretation Comments Sodium Level (test code = 2951-2) 136 136-145 [facility] CenterPotassium Ekirw9474-08-06 05:13:00* Test Item Value Reference Range Interpretation Comments Potassium Level (test code = 2823-3) 4.7 3.5-5.1 [facility] CenterChloride Yzoqh2519-62-54 05:13:00* Test Item Value Reference Range Interpretation Comments Chloride Level (test code = 2075-0) 109 98-107 H [facility] CenterCarbon Dioxide Hgyls3510-71-77 05:13:00* Test Item Value Reference Range Interpretation Comments Carbon Dioxide Level (test code = 2028-9) 20 22-29 L [facility] CenterAnion Rxh2172-41-07 05:13:00* Test Item Value Reference Range Interpretation Comments Anion Gap (test code = 20612-3) 11.7 8-16 [facility] CenterBlood Urea Xgkfyjdb2351-31-83 05:13:00* Test Item Value Reference Range Interpretation Comments Blood Urea Nitrogen (test code = 3094-0) 20 7-26 [facility] CenterCreatinine2018-07-09 05:13:00* Test Item Value Reference Range Interpretation Comments Creatinine (test code = 2160-0) 1.79 0.72-1.25 H [facility] CenterBUN/Creatinine Inzjl7631-17-33 05:13:00* Test Item Value Reference Range Interpretation Comments BUN/Creatinine Ratio (test code = 3097-3) 11 6-25 [facility] CenterEstimat Glomerular Filtration Rate 2017-08-31 05:13:00* Test Item Value Reference Range Interpretation Comments Estimat Glomerular Filtration Rate (test code = 16914-8) 43 >60 L Ranges were taken from the National Kidney Disease Education Program and the [facility] literature.Reference ranges:60 or greater: Ezlmmg29-26 ( for 3 consecutive months): Chronic kidney disease 15 or less: Kidney failureCovenant Medical CenterGlucose Ohokp2450-03-83 05:13:00* Test Item Value Reference Range Interpretation Comments Glucose Level (test code = MBM9330) 165 74-118 H [facility] CenterCalcium Vcsuy8560-82-78 05:13:00* Test Item Value Reference Range Interpretation Comments Calcium Level (test code = 68690-3) 8.2 8.4-10.2 L [facility] CenterTotal Rczxeytcm3439-93-78 05:11:00* Test Item Value Reference Range Interpretation Comments Total Bilirubin (test code = 1975-2) 0.5 0.2-1.2 [facility] CenterAspartate Amino Transf (AST/SGOT) 2017-08-30 05:11:00* Test Item Value Reference Range Interpretation Comments Aspartate Amino Transf (AST/SGOT) (test code = Aspartate Amino Transf (AST/SGOT)) 14 5-34 [facility] CenterAlanine Aminotransferase (ALT/SGPT) 2017-08-30 05:11:00* Test Item Value Reference Range Interpretation Comments Alanine Aminotransferase (ALT/SGPT) (test code = 1742-6) 40 0-55 [facility] CenterTotal Bfnanwj6563-14-46 05:11:00* Test Item Value Reference Range Interpretation Comments Total Protein (test code = 2885-2) 7.4 6.5-8.1 [facility] CenterAlbumin2018-07-08 05:11:00* Test Item Value Reference Range Interpretation Comments Albumin (test code = 1751-7) 2.8 3.5-5.0 L [facility] CenterGlobulin2018-07-08 05:11:00* Test Item Value Reference Range Interpretation Comments Globulin (test code = 33239-6) 4.6 2.3-3.5 H [facility] CenterAlbumin/Globulin Roytb7590-05-02 05:11:00 * Test Item Value Reference Range Interpretation Comments Albumin/Globulin Ratio (test code = 1759-0) 0.6 0.8-2.0 L [facility] CenterAlkaline Lenkmzhlmom9472-11-93 05:11:00* Test Item Value Reference Range Interpretation Comments Alkaline Phosphatase (test code = 6768-6) 234 40-150 H [facility] CenterWhite Blood Djxhl2715-26-29 04:54:00* Test Item Value Reference Range Interpretation Comments White Blood Count (test code = 6690-2) 5.33 4.8-10.8 [facility] CenterRed Blood Ayhwi3463-64-10 04:54:00* Test Item Value Reference Range Interpretation Comments Red Blood Count (test code = 789-8) 3.61 4.3-5.7 L [facility] CenterHemoglobin2018-07-08 04:54:00* Test Item Value Reference Range Interpretation Comments Hemoglobin (test code = 47862-9) 9.4 14.0-18.0 L [facility] CenterHematocrit2018-07-08 04:54:00* Test Item Value Reference Range Interpretation Comments Hematocrit (test code = 4544-3) 29.6 38.2-49.6 L [facility] CenterMean Corpuscular Nzztkr4777-35-78 04:54:00* Test Item Value Reference Range Interpretation Comments Mean Corpuscular Volume (test code = 787-2) 82.0 81-99 [facility] CenterMean Corpuscular Awfceaaaxh5751-11-03 04:54:00* Test Item Value Reference Range Interpretation Comments Mean Corpuscular Hemoglobin (test code = 785-6) 26.0 28-32 L [facility] CenterMean Corpuscular Hemoglobin Concent 2017-08-30 04:54:00* Test Item Value Reference Range Interpretation Comments Mean Corpuscular Hemoglobin Concent (test code = 786-4) 31.8 31-35 [facility] CenterRed Cell Distribution Wmgsd2978-49-96 04:54:00* Test Item Value Reference Range Interpretation Comments Red Cell Distribution Width (test code = 59291-9) 16.5 11.7 -14.4 H [facility] CenterPlatelet Zguqb7132-28-76 04:54:00* Test Item Value Reference Range Interpretation Comments Platelet Count (test code = 777-3) 115 140-360 L [facility] CenterNeutrophils (%) (Auto)2017-08-30 04:54:00 * Test Item Value Reference Range Interpretation Comments Neutrophils (%) (Auto) (test code = 28383-2) 73.6 38.7-80.0 [facility] CenterLymphocytes (%) (Auto)2017-08-30 04:54:00 * Test Item Value Reference Range Interpretation Comments Lymphocytes (%) (Auto) (test code = 736-9) 13.9 18.0-39.1 L [facility] CenterMonocytes (%) (Auto)2017-08-30 04:54:00* Test Item Value Reference Range Interpretation Comments Monocytes (%) (Auto) (test code = 5905-5) 9.8 4.4-11.3 [facility] CenterEosinophils (%) (Auto)2017-08-30 04:54:00 * Test Item Value Reference Range Interpretation Comments Eosinophils (%) (Auto) (test code = 713-8) 2.1 0.0-6.0 [facility] CenterBasophils (%) (Auto)2017-08-30 04:54:00* Test Item Value Reference Range Interpretation Comments Basophils (%) (Auto) (test code = 706-2) 0.2 0.0-1.0 [facility] CenterIM GRANULOCYTES %2017-08-30 04:54:00* Test Item Value Reference Range Interpretation Comments IM GRANULOCYTES % (test code = IM GRANULOCYTES %) 0.4 0.0- 1.0 [facility] CenterNeutrophils # (Auto)2017-08-30 04:54:00* Test Item Value Reference Range Interpretation Comments Neutrophils # (Auto) (test code = 751-8) 3.9 2.1-6.9 [facility] CenterLymphocytes # (Auto)2017-08-30 04:54:00* Test Item Value Reference Range Interpretation Comments Lymphocytes # (Auto) (test code = 39626-5) 0.7 1.0-3.2 L [facility] CenterMonocytes # (Auto)2017-08-30 04:54:00* Test Item Value Reference Range Interpretation Comments Monocytes # (Auto) (test code = 742-7) 0.5 0.2-0.8 [facility] CenterEosinophils # (Auto)2017-08-30 04:54:00* Test Item Value Reference Range Interpretation Comments Eosinophils # (Auto) (test code = 711-2) 0.1 0.0-0.4 [facility] CenterBasophils # (Auto)2017-08-30 04:54:00* Test Item Value Reference Range Interpretation Comments Basophils # (Auto) (test code = 704-7) 0.0 0.0-0.1 [facility] CenterAbsolute Immature Granulocyte (auto 2017-08-30 04:54:00* Test Item Value Reference Range Interpretation Comments Absolute Immature Granulocyte (auto (shin t code = Absolute Immature Granulocyte (auto) 0.02 0-0.1 [facility] Uekrw3181-45-41 02:07:00* Test Item Value Reference Range Interpretation Comments Lactic Acid Level (test code = Lactic Acid Level) 6.9 4.5- 19.8 [facility] Qzyqq4786-57-24 02:07:00* Test Item Value Reference Range Interpretation Comments Lactic Acid Level (test code = Lactic Acid Level) 6.9 4.5- 19.8 [facility] Sorcc5198-58-32 02:07:00* Test Item Value Reference Range Interpretation Comments Lactic Acid Level (test code = Lactic Acid Level) 6.9 4.5- 19.8 [facility] Enkcc6761-11-95 01:57:00* Test Item Value Reference Range Interpretation Comments Urine Color (test code = 5778-6) RED YELLOW H [facility] Kqzglsd0814-22-06 01:57:00* Test Item Value Reference Range Interpretation Comments Urine Clarity (test code = 42235-0) CLOUDY CLEAR H [facility] Specific Vtivqfd3368-18-08 01:57:00 * Test Item Value Reference Range Interpretation Comments Urine Specific Hertel (test code = 5811-5) 1.020 1.010-1.02 5 [facility] fX0904-68-08 01:57:00* Test Item Value Reference Range Interpretation Comments Urine pH (test code = 72430-7) 6 5-7 [facility] Leukocyte Azltbjzy7976-49-17 01:57:00* Test Item Value Reference Range Interpretation Comments Urine Leukocyte Esterase (test code = 5799-2) 2+ NEGATIVE H [facility] Ipqfgji4860-29-81 01:57:00* Test Item Value Reference Range Interpretation Comments Urine Nitrite (test code = 03891-1) NEGATIVE NEGATIVE [facility] Encfzcg9201-53-52 01:57:00* Test Item Value Reference Range Interpretation Comments Urine Protein (test code = 5804-0) 3+ NEGATIVE H [facility] Glucose (UA)2017-08-29 01:57:00* Test Item Value Reference Range Interpretation Comments Urine Glucose (UA) (test code = 2349-9) NEGATIVE NEGATIVE [facility] Ppsjipr1752-28-39 01:57:00* Test Item Value Reference Range Interpretation Comments Urine Ketones (test code = 21300-0) NEGATIVE NEGATIVE [facility] Yoxbzkesaffh9347-40-62 01:57:00* Test Item Value Reference Range Interpretation Comments Urine Urobilinogen (test code = 50389-4) 0.2 0.2-1 [facility] Yudlkmsby3232-85-83 01:57:00* Test Item Value Reference Range Interpretation Comments Urine Bilirubin (test code = 1978-6) 1+ NEGATIVE H Confirmatory test currently unavailable. False positive results may occur.[facility] Rdqdb9855-42-77 01:57:00* Test Item Value Reference Range Interpretation Comments Urine Blood (test code = 96974-6) 3+ NEGATIVE H [facility] BAF0111-45-28 01:57:00* Test Item Value Reference Range Interpretation Comments Urine WBC (test code = 5821-4) 50- 0-5 H [facility] WNK4689-26-87 01:57:00* Test Item Value Reference Range Interpretation Comments Urine RBC (test code = 99402-4) 50- 0-5 H [facility] Gcmhylhc9096-26-64 01:57:00* Test Item Value Reference Range Interpretation Comments Urine Bacteria (test code = 25344-2) FEW NONE [facility] Epithelial Pikvl2980-88-54 01:57:00 * Test Item Value Reference Range Interpretation Comments Urine Epithelial Cells (test code = 81801-3) RARE NONE [facility]2017-08-29 01:52:00 [place] [address] Patient Name: MANJIT LUO MR #: [id number] : 1980 Age/Sex: 37/M Req #: [id number] Adm Physician: Ordered by: MARIELLE MARSH MD Report #: [id number] Location: ER Room/Bed: Procedure: [id number] DX/CHEST SINGLE (ALONDRA BLE) Exam Date: 08/29/17 [...] 08/29/17152 COPY TO: MARIELLE MARSH MD Magnesium Ujehz4609-10-32 00:45:00* Test Item Value Reference Range Interpretation Comments Magnesium Level (test code = 80367-7) 1.3 1.3-2.1 [facility] [address], [place], [place] [address] Patient Name: MANJIT LUO MR #: [id number] : 1980 Age/Sex: 36/M Req #: [id number] Adm Physician: Ordered by: MARGAUX HILLS MD Report #: [id number] Location: ER Room/Bed: Procedure: [id number] CT/CT ABDOMEN/PELVIS WO Exam Date: 01/25/17 Exam Time: 2 REPORT STATUS: Signed EXAM: CT Abdomen and [...]
--- OUTSIDE RECORDS SUMMARY | 2019-12-29 17:07 | XMS REPORT | Continuity of Care Document ---
Author Author [facility] t Organization [facility] Address [address] [place] [address] Phone Unavailable Care Team Providers Care Family Day Care Provider Name Role Phone MD ABHIJIT YODER MD PCP ABHIJIT YODER Attphys Unavailable Aliza FOSS, Arcelia Attphys Unavailable Dominique [facility] Reg LERNER M Melani Attphys Unavailable Ty FOSS, Bisi Attphys Unavailable Gaurav Vila Attphys Unavailable Ricardo PUNCHING MACHINE OPERATORBisi Hameed Attphys Unavailable Jason OLSON, Sonido Osorio [...] Expiration Date Christiano richardson BCBSBCBS OUT OF [id number] 2018 00:00:00 Alejandro Arias [employer] Ppo [id number] 2018 00:00:00 [facility] [employer] Ppo [id number] [facility] Problems Condition Name Condition Details Condition Category [...] 1 Disease Acti ve 2019-02-21 00:00:00 Alejandro saalzar 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 Active 2017-04-16 00:00:00 Allison Arias Infection of right knee Infection of right knee Disease Active 2016-03-27 00:00:00 Alejandro salazar Acute renal failure Acute renal failure Problem Active 2015-08-09 00:00 :00 [facility] Dehydration Dehydration Problem Active 2015-08-09 00:00:00 [facility] Diarrhea Diarrhea Problem Active 2015-08-09 00:00:00 [facility] GI bleed GI bleed Problem Active 2015-08-09 00:00:00 [facility] Hyperglycemia Hyperglycemia Problem Active 2015-08-09 00:00:00 [facility] Sepsis Sepsis Problem Active 2015-04-15 00:00:00 [facility] Renal insufficiency Renal insufficiency Problem Active 2015-04-15 00:00 :00 [facility] Bacteremia Bacteremia Problem Active 2015-03-30 00:00:00 [facility] Prostatitis Prostatitis Problem Active 2015-03-30 00:00:00 [facility] Complicated urinary tract infection UTI (urinary tract infection ) Problem Active 2015-03-30 00:00:00 [facility] Pyelonephritis Pyelonephritis Problem Active 2015-02-10 00:00:00 [facility] History of left foot drop History of left foot drop Problem Active [facility] Arthralgia of right ankle Arthralgia of right ankle Problem Active [facility] Equinus contracture of right ankle Equinus contracture of right ankle Problem Active [facility] Fracture of right tibial plateau, closed , with routine healing, subsequent encounter Fracture of right tibial plateau, closed , with routine healing, subsequent encounter Problem Active [facility] Acute renal insufficiency Acute renal insufficiency Problem Active [facility] Bladder wall thickening Bladder wall thickening Problem Active [facility] Fever Fever Problem Active [facility] Hydroureteronephrosis Hydroureteronephrosis Problem Active [facility] Hypomagnesemia Hypomagnesemia Problem Active [facility] Indwelling Barcenas catheter present Indwelling catheter presen t on admission Problem Active [facility] Obstructive uropathy Obstructive uropathy Problem Active [facility] Displacement of ureteral stent Ureteral stent displacement Problem Activ e [facility] Vomiting Vomiting Problem Active [facility] Abdominal pain Abdominal pain Problem Active [facility] Constipation Constipation Problem Active [facility] Edema of extremities Edema extremities Problem Active [facility] End-stage renal disease on peritoneal dialysis Problem Active [facility] Allergies, Adverse Reactions, Alerts Allergy Name Allergy Type Status Severity Reaction(s) Onset Date Inacti ve Date Treating Clinician Comments Source Iodinated Contrast Media Allergy to substance Active 11-05-10 00:00:00 [facility] Dye Propensity to adverse reactions to drug Active 2016-03-17 00:00:00 CT contrast. IV dye. Excessive sneezing. Alejandro Arias CT CONTRAST DA Active MO 2015-10-12 00:00:00 [facility] PO CONTRAST Allergy to substance Active Mild 2007-07-06 00:00:00 [facility] Family History Family Member Diagnosis Comments Start Date Stop Date Source Maternal grandmother Hypertension [facility] Maternal grandmother Kidney disease Alejandro Arias Natural mother Diabetes [facility] Social History Social Habit Start Date [...] injection 2 13:14:56 2019-08-19 00:00:00 No 5U [id number] In ject 5 Units under the skin 3 (three) times a day before meals. Ana Cristina Arias amoxicillin (AMOXIL) 500 MG capsule 2019-08-19 13:14:5 6 2019-08-19 00:00:00 No 500mg Q.[id number] Take 500 mg by cox branson 3 (three) times a day. Alejandro Arias calcium carbonate (TUMS) 200 mg calcium (500 mg) chewable ta blet 2019-08-19 13:14:52 Yes 1{tbl} Q.[id number] 3D Chew 1 tablet 3 (three) times daily after meals. Alejandro Arias gabapentin (NEURONTIN) 300 mg capsule 2019-08-19 13:14:52 Yes 300mg Q.[id number] Take 300 mg by mouth 3 (three) times a day. Alejandro Arias sodium bicarbonate 650 mg tablet 2019-08-19 13:14:52 Yes 1300mg Q.[id number] Take 1,300 mg by mouth 3 (three) times a day. Alejandro Arias NIFEdipine XL (PROCARDIA XL) 30 MG 24 hr tablet 2019-08-19 13:14 :52 Yes 30mg Q.5D Take 30 mg by mouth 2 (two) times a day. Alejandro Arias magnesium oxide (MAG-OX) 400 mg (241.3 mg magnesium) tablet 2019-08-19 13:14:52 Yes 800mg Q.[id number] 3D Take 800 mg by mouth 3 (three) times a day. Alejandro Arias ciprofloxacin (CIPRO) 500 MG tablet 2019-08-19 00:00:0 0 2019-09-18 23:59:00 No 500mg QD Take 1 tablet (500 mg total) by mouth da darci for 30 days. Alejandro Arias insulin lispro (HumaLOG) 100 unit/mL injection 2 00:00:00 2019-09-17 23:59:00 No 9U Q.[id number] In ject 9 Units under the skin 3 (three) times a day before meals for 30 days. Alejandro Arias doxycycline (VIBRAMYCIN) 100 MG capsule 00:00:00 2019-09-17 23:59:00 No 100mg Q.5D Take 1 capsule (100 mg total) by mouth 2 (two) times a day for 30 days. Alejandro Arias ergocalciferol (VITAMIN D2) 50,000 unit capsule 2019-08-15 11:27:2019-08-15 00:00:00 No [id number] Q7D Take 50,000 Units by mouth once [...] TAKE 1 CA PSULE [address] [facility] Furosemide Furosemide 2018-06-27 13:06:00 2018-10-17 00:00:00 No 40 Daily [facility] Nifedipine (Nifedipine Er) 30 Mg TAB.ER.24 Nifedipine (Nifedipine Er) 30 Mg TAB.ER.24 2018-06-27 13:06:00 2018-10-17 00:00:00 No 60 Daily [facility] Amoxicillin Amoxicillin Yes 500 Three Times A Da y [facility] Fluconazole (Diflucan) 100 Mg TABLET Fluconazole (Diflucan) 100 Mg TABLET Yes 100 Daily [facility] Insulin Glargine (Lantus 3ML Pen) 100 Units/1 Ml INJ I nsulin Glargine (Lantus 3ML Pen) 100 Units/1 Ml INJ Yes Three Time s Daily With Meals [facility] Magnesium Oxide (Mag-Oxide) 400 Mg TABLET Magnesium Ox jaziel (Mag-Oxide) 400 Mg TABLET Yes 400 Three Times A Day C HI [facility] Nifedipine (Nifedipine Er) 30 Mg TABLET.ER Nifedipine (Nifedipine Er) 30 Mg TABLET.ER Yes 30 Twice A Day [facility] Sodium Bicarbonate Sodium Bicarbonate Yes 1300 Th ree Times A Day [facility] Fluconazole (Diflucan) 100 Mg TABLET Fluconazole (Diflucan) 100 Mg TABLET 2019-06-22 00:00:00 No 100 Daily [facility] Furosemide (Lasix) 40 Mg TABLET Furosemide (Lasix) 40 Mg TABLET 2019-06-22 00:00:00 No 40 Daily as needed for Edema To Lo wer Extremities [facility] Gabapentin Gabapentin 2019-06-22 00:00:00 No 300 Thr ee Times A Day [facility] Insulin Aspart (Novolog) 100 Unit/1 Ml CARTRIDGE Insul in Aspart (Novolog) 100 Unit/1 Ml CARTRIDGE 2019-06-22 00:00:00 No 5 Befo re Meals [facility] Magnesium Oxide (Magox 400) 400 Mg TABLET Magnesium Ox jaziel (Magox 400) 400 Mg TABLET 2019-06-22 00:00:00 No 2 Three Times A Day [facility] Nifedipine (Nifedipine Er) 60 Mg TAB.ER.24 Nifedipine (Nifedipine Er) 60 Mg TAB.ER.24 2019-06-22 00:00:00 No 30 Twice A Day [facility] Sodium Bicarbonate Sodium Bicarbonate 2019-06-22 00:00:00 No 2 Three Times A Day [facility] Ergocalciferol (Vitamin D2) (Vitamin D2) 2,000 Unit TA BLET Ergocalciferol (Vitamin D2) (Vitamin D2) 2,000 Unit TABLET 2019-05-30 00:00:00 [place] [address]22 Q Week [facility] Lactulose Lactulose 2019-02-11 00:00:00 No 30 Every 6 Hours as needed for Constipation [facility] Metoclopramide Hcl (Reglan) 10 Mg TABLET Metoclopramid e Hcl (Reglan) 10 Mg TABLET 2019-02-11 00:00:00 No 10 Before Meals And At Bedtime [facility] Veltamervina Veltomasa 2019-02-11 00:00:00 No 1 Daily [facility] Sennosides/Docusate Sodium (Senokot-S Tablet) 1 Each T ABLET Sennosides/Docusate Sodium (Senokot-S Tablet) 1 Each TABLET 2018-10-31 00:00:00 No [facility] Nifedipine (Nifedipine Er) 30 Mg TAB.ER.24 Nifedipine (Nifedipine Er) 30 Mg TAB.ER.24 2018-06-27 00:00:00 No Daily [facility] Vyzulta Vyzulta 2018-06-21 00:00:00 No .024 Daily [facility] Amlodipine Besylate Amlodipine Besylate 2018-05-05 00:00:00 No 10 Daily [facility] Metoprolol Tartrate Metoprolol Tartrate 2018-05-05 00:00:00 No 25 Twice A Day [facility] Ciprofloxacin Hcl (Cipro) 500 Mg TABLET Ciprofloxacin Hcl (C ipro) 500 Mg TABLET 2017-08-29 00:00:00 No 500 Daily [facility] Doxycycline Hyclate Doxycycline Hyclate 2017-08-29 00:00:00 No 100 Twice A Day [facility] Fluconazole Fluconazole 2017-08-29 00:00:00 No 200 D aily [facility] Insulin Detemir (Levemir) 100 Unit/1 Ml VIAL Insulin D etemir (Levemir) 100 Unit/1 Ml VIAL 2017-08-29 00:00:00 No 20 Bedtime [facility] Oxybutynin Chloride (Oxybutynin Chloride Er) 5 Mg TAB. ER.24 Oxybutynin Chloride (Oxybutynin Chloride Er) 5 Mg TAB.ER.24 2017-08-29 00:00:00 No 15 Daily [facility] Cephalexin Cephalexin 2016-06-04 00:00:00 No 500 Fou r Times Daily [facility] Hydrocodone Bit/Acetaminophen ([place] 5-325 Tablet) 1 E ach TABLET Hydrocodone Bit/Acetaminophen ([place] 5-325 Tablet) 1 Each TABLET 2016-06-04 00: 00:00 No 1 Every 6 Hours as needed for Pain [facility] Promethazine Hcl Promethazine Hcl 2016-06-04 00:00:00 No 25 Every 4 Hours [facility] Tramadol Hcl (Ultram) 50 Mg TABLET Tramadol Hcl (Ultram) 50 Mg T ABLET 2016-06-04 00:00:00 No Every 6 Hours as nee ded for Pain [facility] Fluticasone Propionate Fluticasone Propionate 2015-08-08 00:00:00 No 1 Twice A Day [facility] Meropenem (Merrem) 500 Mg INJ Meropenem (Merrem) 500 Mg INJ 2015-08-08 00:00:00 No 500 Every 8 Hours C HI [facility] Metoclopramide Hcl (Reglan) 10 Mg TABLET Metoclopramid e Hcl (Reglan) 10 Mg TABLET 2015-08-08 00:00:00 No 10 Before Meals And At Bedtime [facility] Pantoprazole Sodium (Protonix) 40 Mg TABLET. Pantopr azole Sodium (Protonix) 40 Mg TABLET. 2015-08-08 00:00:00 No 40 Every Morni ng [facility] Amoxicillin/Potassium Clav (Augmentin 500-125 Tablet) 1 Each TABLET Amoxicillin/Potassium Clav (Augmentin 500-125 Tablet) 1 Each TABLET 2015-04-11 00:00:00 No 500 Twice A Day [facility] Fluconazole (Diflucan) 100 Mg TABLET Fluconazole (Diflucan) 100 Mg TABLET 2015-04-11 00:00:00 No Daily [facility] Tamsulosin Hcl (Flomax*) 0.4 Mg CAP Tamsulosin Hcl (Flomax*) 0.4 Mg CAP 2015-03-30 00:00:00 No .4 Bedtime [facility] Acetaminophen With Codeine (Tylenol With Codeine #3 Ta blet) 1 Each TABLET Acetaminophen With Codeine (Tylenol With Codeine #3 Tablet) 1 Each TABLET 2015-03-08 00:00:00 No 300 Every 6 Hours as nee ded for Pain [facility] Senna Fruit/Conc/Doc Sod/Bisa (Senna-S Tablet) 1 Ea TA B Senna Fruit/Conc/Doc Sod/Bisa (Senna-S Tablet) 1 Ea TAB 2015-03-08 00:00:00 No 1 Bedtime [facility] Hydrocodone Bit/Acetaminophen ([place] 5-325 Tablet) 1 E ach TABLET Hydrocodone Bit/Acetaminophen ([place] 5-325 Tablet) 1 Each TABLET 2015-02-22 00: 00:00 No Daily [facility] Insulin Npl/Insulin Lispro (Humalog Mix 50-50 Kwikpen) 100 Unit/1 Ml INSULN.PEN Insulin Npl/Insulin Lispro (Humalog Mix 50-50 Kwikpen) 100 Unit/1 Ml INSULN.PEN 2015-02-22 00:00:00 No 15 Units Every A.m . [facility] Lisinopril Lisinopril 2015-02-22 00:00:00 No Ketty ly [facility] Amoxicillin/Potassium Clav (Augmentin 875-125 Tablet) 1 Each TABLET Amoxicillin/Potassium Clav (Augmentin 875-125 Tablet) 1 Each TABLET 2015-02-11 00:00:00 No Twice A Day [facility] Cephalexin Monohydrate (Keflex) 500 Mg CAPSULE Cephale leonela Monohydrate (Keflex) 500 Mg CAPSULE 2015-02-11 00:00:00 No 500 Three Cm es A Day [facility] Docusate Sodium (Colace) 100 Mg CAP Docusate Sodium (Colace) 100 Mg CAP 2015-02-11 00:00:00 No Daily [facility] Insulin Glargine,Hum.rec.anlog (Lantus) 100 Unit/1 Ml CARTRIDGE Insulin Glargine,Hum.rec.anlog (Lantus) 100 Unit/1 Ml CARTRIDGE 2014 00:00:00 No 45 Units At Bedtime [facility] Metformin Hcl Metformin Hcl 2015-02-11 00:00:00 No 500 Twice Daily [facility] Vital Signs Vital Name Observation Time Observation Value Comments Source Systolic blood pressure 2019-08-19 10:13:08 137 mm[Hg] [facility] Diastolic blood pressure 2019-08-19 10:13:08 84 mm[Hg] [facility] Heart rate 2019-08-19 10:13:08 61 /min [facility] Body temperature 2019-08-19 10:13:08 36.5 Ashley [facility] Respiratory rate 2019-08-19 10:13:08 16 /min [facility] Oxygen saturation in Arterial blood by Pulse oximetry 08-18 10:13:08 98 /min [facility] Body height 2019-08-17 12:23:58 180.3 cm [facility] Body weight 2019-08-14 21:10:00 95.255 kg [facility] BMI 2019-08-14 21:10:00 29.29 kg/m2 [facility] Body Temperature 2019-08-10 11:13:00 98.9 [degF] [facility] BMI (Body Mass Index) 2019-08-05 13:40:00 29.3 kg/m2 [facility] Weight 2019-08-04 20:39:00 210 [lb_av] [facility] Body Temperature 2019-06-22 20:30:00 97.4 [degF] [facility] BMI (Body Mass Index) 2019-06-12 17:12:00 29.3 kg/m2 [facility] Weight 2019-06-12 11:09:00 210 [lb_av] [facility] Procedures Procedure Date / Time Performed Performing Clinician Sourc e POC GLUCOSE 2019-08-19 12:21:00 Varinder Bethodist POC GLUCOSE 2019-08-19 07:18:00 Kirit Varinder Nicole ethodist URINE CULTURE 2019-08-18 22:47:00 Castro Jalloh Maryam Allen Quynh odist POC GLUCOSE 2019-08-18 21:27:00 Kirit Varinder Nicole ethodist URINALYSIS SCREEN AND MICROSCOPY, WITH REFLEX TO CULTURE 202 21:05:00 Castro Jalloh [facility] POC GLUCOSE 2019-08-18 19:02:00 Kirit Varinder Nicole [...] Christine Jerez COVID-19 QUALITATIVE PCR 2019-08-16 00:30:00 Varindre Beth POC GLUCOSE 2019-08-15 21:02:00 Varinder Beth [...] abdomen and pelvis without contrast 2019-08-04 00:00:00 [facility] CARDIOLIPIN ANTIBODIES 2019-08-01 12:17:00 Yaneth Weaver X-ray of chest, two views 2019-06-16 00:00:00 CH I [facility] RESECTION OF RIGHT KIDNEY, OPEN APPROACH 2019-06-13 00:00:00 [facility] PERFORMANCE OF URINARY FILTRATION, <6 HRS/DAY 2019-06-12 00:00:0 0 [facility] Ultrasound guidance for vascular access 2019-06-02 00:00:00 FAIZA ENGEL [facility] INSERT OF TUNNEL VAD INTO CHEST SUBCU/FASCIA, OPEN APPROACH 2019-06-02 00:00:00 [facility] REMOVAL OF TUNNEL VAD FROM TRUNK SUBCU/FASCIA, OPEN AP PROACH 2019-06-02 00:00:00 [facility] INSERTION OF INFUSION DEV INTO SUP VENA CAVA, PERC APPROACH 2019-06-02 00:00:00 [facility] ULTRASONOGRAPHY OF SUPERIOR VENA CAVA, GUIDANCE 2019-06-02 00:00 :[address] [facility] [address] of abdomen and pelvis without contrast 2019-05-30 00:00:00 [facility] Ultrasound guidance for vascular access 2019-05-16 00:00:00 FAIZA ENGEL [facility] INSERT OF TUNNEL VAD INTO CHEST SUBCU/FASCIA, PERC APPROACH 2019-05-16 00:00:00 [facility] INSERTION OF INFUSION DEVICE INTO R ATRIUM, PERC APPROACH 05-15 00:00:00 [facility] ULTRASONOGRAPHY OF SUPERIOR VENA CAVA, GUIDANCE 2019-05-16 00:00 :00 [facility] INSERT OF INFUSION DEV INTO PERITON CAV, PERC ENDO APPROACH 2019-05-12 00:00:00 [facility] IRRIGATION OF PERITON CAV USING DIALYSATE, PERC APPROACH 2019-04 00:00:00 [facility] REMOVAL OF INTRALUMINAL DEVICE FROM URETER, ENDO 2019-05-10 00:0 0:00 [facility] DILATION OF RIGHT URETER WITH INTRALUMINAL DEVICE, ENDO 00:00:00 [facility] CHANGE DRAINAGE DEVICE IN BLADDER, EXTERNAL APPROACH 2019-05-10 00:00:00 [facility] X-ray of chest, two views 2019-05-06 00:00:00 JC CATES CH I [facility] XR CHEST 2 VW 2019-05-03 09:35:[address] ABDOMEN PELVIS WO CONTRAST 2019-05-03 09:28:50 Claudio Weaver CHOLESTEROL 2019-05-03 08:30:00 Yaneth Weaver TRIGLYCERIDES 2019-05-03 08:30:00 Yaneth Weaver GLUCOSE LEVEL 2019-05-03 08:30:00 Weaver, Yaneth Cunninghamist CREATININE LEVEL 2019-05-03 08:30:00 Weaver, Yaneth [facility] PHOSPHORUS LEVEL 2019-05-03 08:30:00 Weaver, Yaneth [facility] LDH 2019-05-03 08:30:00 Weaver, Yaneth Cunninghamist CYTOMEGALOVIRUS [...] DEVICE FROM KIDNEY, EXTERNAL APPROACH 2018-02 00:00:00 [facility] DRAINAGE OF RIGHT KIDNEY WITH DRAINAGE DEVICE, PERC AP PROACH 2019-02-15 00:00:00 [facility] DILATION OF RIGHT URETER WITH INTRALUMINAL DEVICE, ENDO 00:00:00 [facility] DILATION OF LEFT URETER, ENDO 2019-02-15 00:00:00 [facility] FLUOROSCOPY OF KIDNEY, URETER & BLADDER USING L O[facility] CO NTRAST 2019-02-15 00:00:00 [facility] CHANGE DRAINAGE DEVICE IN BLADDER, EXTERNAL APPROACH 2019-02-15 00:00:00 [facility] Echo guide for biopsy 2019-02-15 00:00:00 [facility] RESECTION OF PREPUCE, EXTERNAL APPROACH 2018-11-05 00:00:00 [facility] CHANGE DRAINAGE DEVICE IN BLADDER, EXTERNAL APPROACH 2018-11-05 00:00:00 [facility] DILATION OF BILATERAL URETERS, ENDO 2018-11-05 00:00:00 [facility] FLUOROSCOPY OF KIDNEY, URETER & BLADDER USING L [facility] CO NTRAST 2018-11-05 00:00:00 [facility] EXCISION OF LOWER ESOPHAGUS, ENDO, DIAGN 2018-11-01 00:00:00 [facility] EXCISION OF STOMACH, PYLORUS, ENDO, DIAGN 2018-11-01 00:00:[address] [facility] [address] of abdomen and pelvis without contrast 2018-10-31 00:00:[address] [facility] [address] of abdomen and pelvis without contrast 2018-10-18 00:00:00 [facility] Plan of Care Planned Activity Planned Date Details Comments Source Future Scheduled Test 2019-09-24 00:00:00 INFLUENZA VACCINE [code = INFLUENZA VACCINE] [facility] Future Scheduled Test 1990 00:00:00 DIABETES: RETINAL EYE EXAM [code = DIABETES: RETINAL EYE EXAM] [facility] Scheduled Test 1990 00:00:00 DIABETIC FOOT EXAM [code = DIABETIC FOOT EXAM] [facility] Instructions Heart Healthy Diet [facility] Instructions Infection Control [facility] Instructions Urinary Tract Infection - Men [facility] Encounters Start Date/Time End Date/Time Encounter Type Admission Type Attendi [facility] Care Department Encounter ID Source 2019-08-14 00:00:00 2019-08-19 00:00:00 Inpatient JAYLIN [facility] [id number] [facility] 2019-08-04 23:31:00 2019-08-10 12:40:00 Discharged Inpatient 1 YODERABHIJIT [facility] [id number] [facility] 2019-08-01 00:00:00 2019-08-01 00:00:[address] [facility] [id number] [facility] 2019-08-01 00:00:00 2019-08-01 00:00:00 Outpatient MERCY PRESSLEY [facility] [id number] [facility] 2019-06-12 11:12:00 2019-06-22 20:38:00 Discharged Inpatient [address] [facility] [id number] [facility] 2019-06-09 03:55:2019-06-09 06:51:00 Departed Emergency Room 1 [facility] [id number] [facility] 2019-05-30 02:39:00 2019-06-03 17:47:00 Discharged Inpatient 1 [facility] [id number] [facility] 2019-05-06 21:01:00 2019-05-21 14:22:00 Discharged Inpatient 1 ABHIJIT YODER [facility] [id number] [facility] 2019-05-03 00:00:00 2019-05-03 00:00:[address] [facility] [id number] [facility] 2019-05-03 00:00:00 2019-05-03 00:00:[address] [facility] [id number] [facility] 2019-05-03 00:00:00 2019-05-03 00:00:[address] [facility] [id number] [facility] 2019-03-20 22:29:00 2019-03-21 03:04:00 Departed Emergency Room [facility] [id number] [facility] 2019-02-15 09:15:00 2019-02-20 13:07:00 Discharged Inpatient 3 CASTRO JALLOH [facility] [id number] [facility] 2019-01-14 13:07:00 2019-01-14 13:07:00 Registered Clinic [facility] [id number] [facility] 2018-12-10 08:30:00 2018-12-10 08:30:00 Appointment; NELSON NG M.D. MELTON, DANIELLE, M.D. [facility] [id number] [facility] 2018-11-11 07:14:2018-11-11 12:00:00 Departed Emergency Room 1 LUZ MARINA CURRIE [facility] [id number] [facility] 2018-10-31 03:34:00 2018-11-08 11:44:00 Discharged Inpatient 1 BEV FLORES [facility] [id number] [facility] 2018-10-17 02:37:00 2018-10-29 10:57:00 Discharged Inpatient 1 ABHIJIT YODER [facility] [id number] [facility] 2018-06-20 18:21:00 2018-06-27 15:47:[address] [facility] [id number] [facility] 2018-06-11 09:00:00 2018-06-11 09:00:00 Appointment; NELSON NG M.D. MELTON, DANIELLE, M.D. [facility] UTP [id number] [facility] 2018-05-04 01:45:00 2018-05-07 17:46:00 Discharged Inpatient [address] [facility] [id number] [facility] 2018-02-12 12:00:00 2018-02-12 12:00:00 Appointment; NELSON NG M.D. MELTON, DANIELLE, M.D. [facility] UTP [id number] [facility] 2018-01-06 15:15:00 2018-01-06 15:15:00 Appointment; NELSON NG M.D. MELTON, DANIELLE, M.D. [facility] UTP [id number] [facility] 2017-12-11 11:30:00 2017-12-11 11:30:00 Appointment; NELSON NG M.D. MELTON, DANIELLE, M.D. [facility] UTP [id number] [facility] 2017-11-13 11:45:00 2017-11-13 11:45:00 Appointment; NELSON NG M.D. MELTON, DANIELLE, M.D. [facility] UTP [id number] [facility] 2017-08-29 05:19:00 2017-09-01 12:03:00 Discharged Inpatient [address] [facility] [id number] [facility] 2017-08-07 11:00:00 2017-08-07 11:00:00 Appointment; NELSON NG M.D. MELTON, DANIELLE, M.D. [facility] UTP [id number] [facility] 2017-08-07 08:30:00 2017-08-07 08:30:00 Appointment; NELSON NG M.D. MELTON, DANIELLE, M.D. [facility] UTP [id number] [facility] 2017-06-02 13:15:00 2017-06-02 13:15:00 Appointment; NELSON NG M.D. MELTON, DANIELLE, M.D. [facility] UTP [id number] [facility] 2017-05-08 11:15:00 2017-05-08 11:15:00 Appointment; NELSON NG M.D. MELTON, DANIELLE, M.D. [facility] UTP [id number] [facility] 2017-02-25 10:00:00 2017-02-25 10:00:00 Appointment; NELSON NG M.D. MELTON, DANIELLE, M.D. [facility] UTP [id number] [facility] 2017-01-25 02:48:00 2017-01-30 17:07:00 Discharged Inpatient ER REINIER MARGAUX [facility] [id number] [facility] 2017-01-07 14:15:00 2017-01-07 14:15:00 Appointment; NELSON NG M.D. MELTON, DANIELLE, M.D. [facility] UTP [id number] [facility] Results Test Description Test Time Test Comments Results Result Comments Source CT ABDOMEN/PELVIS WO 2019-12-20 00:18:00 [facility] : 1980 Sex: M [facility] [address] [address] Patient Name: MANJIT LUO MR #: [id number] : 1980 Age/Sex: 39/M Req #: [id number] [facility] Physician: ABHIJIT YODER MD Ordered by: JONATHAN YODER DO Report #: [id number] Location: MED/SURG2 Room/Bed: [facility] Procedure: [id number] CT/CT ABDOMEN/PELVIS WO Exam Date: 12/19/19 Exam [...] on 12/20/19100 COPY TO: JONATHAN YODER DO [facility] SINGLE (PORTABLE) 2019-12-12 01:03:00 [facility] 1980 Sex: M [place] [address] Patient Name: MANJIT LUO MR #: [id number] : 1980 Age/Sex: 39/M Req #: [id number] Adm Physician: ABHIJIT YODER MD Ordered by: MARIELLE MARSH MD Report #: [id number] Location: MED/SURG Room/Bed: [facility] Procedure: [id number] DX/CHEST SINGLE (PORTABLE) Exam Date: 12/12/19 Exam [...] Specimen InformationSpecimen Source: Specimen Site: [facility] Luisngus [id number] 12:15:05* Test Item Value Reference Range Interpretation Comments Fungus culture isolate (test code = 1441) No growth af ter 4 weeks of incubation. Specimen Information Specimen Source: Specimen Site: [facility] MethodistECG 12 [id number] 14:50:41* Test Item Value Reference Range Interpretation Comments Ventricular rate (test code = 253) 99 Atrial rate (test code = 255) 99 NM interval (test code = 266) 106 QRSD interval (test code = 260) 92 QT interval (test code = 264) 370 QTC interval (test code = 265) 474 P axis 1 (test code = 267) 26 QRS axis 1 (test code = 268) 1 T wave axis (test code = 270) 75 EKG impression (test code = 273) Sinus rhythm with lina rt NM-Cannot rule out Inferior infarct , age undetermined-Abnormal ECG-In automated comparison with ECG of 08-APR-2017 16:07,-NM interval has decreased-Questionable change in QRS axis-ST no longer elevated in Inferior leads-T wave amplitude has decreased in Inferior leads-Nonspecific T wave abnormality now evident in Lateral leads-QT has lengthened- [facility] MethodistAnaerobic unltlaq3988-77-04 12:59:54* Test Item Value Reference Range Interpretation Comments Anaerobic culture isolate (test code = 552) No anaerobic organis ms isolated. Specimen InformationSpecimen Source: Spe [facility] arnii[facility]78-[facility]-28 12:59:54* Test Item Value Reference Range Interpretation Comments AFB stain (test code = 676-7) No acid fast bacilli (AFB) seen. Specimen InformationSpecimen Source: Specimen Site: [facility] MethodistFungus wzioh6322-06-42 12:59:54* Test Item Value Reference Range Interpretation Comments Fungus smear (test code = 1443) No fungi observed. Specimen InformationSpecimen Source: Specimen Site: [facility] MethodistGram [id number] 12:59:54Gram stain isolateMany WBC'sNo organisms seen Comment: Specimen InformationSpecimen Source: Specimen Site: [facility] MethodistAerobic [id number] 12:59:54 Aerobic culture isolateNo growth after 3 days.No growth after 4 days. Comment: Christiano isbell InformationSpecimen Source: Specimen Site: [facility] ALBancroft MethodistBlood culture, aerobic & ivtndbppm7064-41-13 08:03:04* Test Item Value Reference Range Interpretation Comments Blood culture isolate (test code = 600-7) No growth after 5 days of incubation. Specimen InformationSpecimen Source: BloodSpecimen Site: Unspecified [place] BaptistUrine [id number] 07:25:34* Test Item Value Reference Range Interpretation Comments Urine culture isolate (test code = 83186-2) No growth after 24 hour s Specimen InformationSpecimen Source: UrineSpecimen Site: Catheterized [facility] bnfyirr1388-38-02 12:22:21* Test Item Value Reference Range Interpretation Comments POC glucose (test code = 11551-5) 145 mg/dL 65-99 H Auto Adjudication Specialist Name: Cheng Anna ID: [id number]: [facility] Notified scientific technical writer Interpretation (test code = 09996-7) Abnormal [place] MethodistUrinalysis screen and microscopy, with reflex to culture 2019-08-18 22:55:10* Test Item Value Reference Range Interpretation Comments Specimen site (test code = 6279703) Catheterized Color, UA (test code = 5778-6) Straw Appearance, UA (test code = 5767-9) Hazy Specific gravity, UA (test code = 5811-5) 1.012 1.001-1.035 pH, UA (test code = 5803-2) 5.0 5.0-8.5 Protein, UA (test code = 62496-1) 1+ Negative A Glucose, UA (test code = 66774-3) 2+ Negative A Ketones, UA (test code = 2514-8) Negative Negative Bilirubin, UA (test code = 5770-3) Negative Negative Blood, UA (test code = 5794-3) Moderate Negative A Nitrite, UA (test code = 5802-4) Negative Negative Urobilinogen, UA (test code = 28101-7) <2.0 <2.0 Leukocyte esterase, UA (test code = 5799-2) Small Negative A WBC, UA (test code = 5821-4) 25 0- 1 /HPF H RBC, UA (test code = 20550-1) 4 0- 5 /HPF Bacteria, UA (test code = 20833-8) Few None seen Yeast, UA (test code = 81597-5) None seen Yeast with pseudohyphae, UA (test code = 87816-4) None seen Lab Interpretation (test code = 11990-2) Abnormal [place] MethodistCOVID-19 qualitative [id number] 12:12:15* Test Item Value Reference Range Interpretation Comments Interpretation (test code = 2824998) Negative results do not preclude 2019-nCoV infection and should not be used as the sole basis for treatment or other patient management decisions. Negative results must be combined with clinical observations, patient history, and epidemiological information. COVID-19 qualitative PCR result (test code = 16805-6) Not-Detect ed Not-Detected COVID-19 qualitative PCR (test code = 7070) See link below for P DF Lab Report [place] MethodistHepatitis B surface czfpbkp1953-63-06 08:10:47* Test Item Value Reference Range Interpretation Comments Hepatitis B surface Ag (test code = 5195-3) Non-reactive Non-reacti ve [facility] metabolic juitz7923-98-13 10:17:32* Test Item Value Reference Range Interpretation Comments Sodium (test code = 2951-2) 139 135- 148 mEq/L Potassium (test code = 2823-3) 4.4 3.5- 5.0 mEq/L Chloride (test code = 2075-0) 101 98- 112 mEq/L CO2 (test code = 8-9) 23 24- 31 mEq/L L Anion gap (test code = 66791-4) 15@ANIO 7- 15 mEq/L BUN (test code = 3094-0) 36 mg/dL 6-20 H Creatinine (test code = 2160-0) 5.25 mg/dL 0.7-1.2 H Glucose (test code = 2345-7) 146 mg/dL 65-99 H Calcium (test code = 75293-2) 8.2 mg/dL 8.3-10.2 L Lab Interpretation (test code = 33955-3) Abnormal [place] MethodistEstimated [id number] 10:17:32* Test Item Value Reference Range Interpretation Comments Estimated GFR (test code = 5488) 13 mL/min/1.73 m2 A Catergory Units InterpretationG1 >=90 Normal or highG2 60-89 Mildly xkgypzfxuC3d 45-59 Mildly to moderately lzwxszwzrP6l 30-44 Moderately to severely decreasedG4 15-29 Severely decreasedG5 <15 Kidney failureThe eGFR was calculated using the Chronic Kidney Disease Epidemiology Collaboration (CKD-EPI) equation. Interpretation is based on recommendations of the National Kidney Foundation-Kidney Disease Outcomes Quality Initiative (NKF-KDOQI) published in 2014. Lab Interpretation (test code = 32440-0) Abnormal [place] MethodistHemoglobin J6x8765-86-35 09:05:15* Test Item Value Reference Range Interpretation Comments Hemoglobin A1C (test code = 28717-7) 6.5 % 4-5.6 H HbA1c cutoffs for diagnosing diabetes:4.0% - 5.6% = normal5.7% - 6.4% = increased risk for diabetes (prediabetes)9>=6.5% = zneoxpxf1Wqxru for glycemic control (ADA 2016)< 7.0% Target for non adults with diabetes. More or less stringent targets may be appropriate for individual patients. <7.5% Target for Children and adolescents with type 1 diabetes. Lab Interpretation (test code = 18252-3) Abnormal [place] MethodistCBC with platelet and qhkqyacuaorx8936-87-33 07:41:09* Test Item Value Reference Range Interpretation Comments WBC (test code = 78192-0) 3.73 4.50- 11.00 k/uL L RBC (test code = 01772-5) 4.16 m/uL 4.4-6 L HGB (test code = 718-7) 10.1 g/dL 14-18 L HCT (test code = 4544-3) 34.5 % 41-51 L MCV (test code = 787-2) 82.9 fL 82-100 MCH (test code = 785-6) 24.3 pg 27-34 L MCHC (test code = 786-4) 29.3 g/dL 31-37 L RDW - SD (test code = 45728-1) 42.0 fL 37-55 MPV (test code = 55553-0) 8.5 fL 8.8-13.2 L Platelet count (test code = 02415-5) 190 150- 400 k/uL Nucleated RBC (test code = 72253-7) 0.00 /100 WBC Neutrophils (test code = 00155-9) 56.8 % 39-69 Lymphocytes (test code = 25891-1) 30.3 % 25-45 Monocytes (test code = 50333-3) 7.5 % 0-10 Eosinophils (test code = 01850-7) 3.5 % 0-5 Basophils (test code = 57872-7) 0.3 % 0-1 Immature granulocytes (test code = 03574-2) 1.6 % 0-1 H "Immature granulocytes" (promyelocytes, myelocytes, metamyelocytes) Lab Interpretation (test code = 99376-8) Abnormal [place] MethodistCell count and differential, body jnywc4228-34-96 21:07:29* Test Item Value Reference Range Interpretation Comments Misc fluid type (test code = 49359-5) Synovial Color, fluid (test code = 6824-7) Red Appearance, fluid (test code = 9335-1) Hazy RBC, fluid (test code = 48405-4) 17156 /CMM Nucleated cells, fluid (test code = 36092-5) 50576 /CMM Fluid mononuclear cell (test code = 1407) See Diff Neutrophils, fluid (test code = 72994-1) 89 % Lymphocytes, fluid (test code = 88817-2) 2 % Macrophages, fluid (test code = 84037-9) 9 % [facility] MethodistCrystal stetrpru6121-12-77 19:50:35* Test Item Value Reference Range Interpretation Comments Crystal analysis specimen type (test code = 1160) Knee Right knee joint aspirate Monosodium urate (test code = 8233945) None seen None seen CPPD crystals (test code = 1135) None seen None seen [place] MethodistSedimentation qfkh7683-69-77 17:40:51* Test Item Value Reference Range Interpretation Comments Sedimentation rate (test code = 46142-7) 87 0- 10 mm/hr H Lab Interpretation (test code = 54530-3) Abnormal [place] MethodistC-reactive bcsmpuk5277-55-08 17:13:47* Test Item Value Reference Range Interpretation Comments CRP (test code = 1988-5) 5.40 mg/dL 0-0.5 H Lab Interpretation (test code = 84211-9) Abnormal [place] MethodistComprehensive metabolic czakz3815-27-13 17:13:46* Test Item Value Reference Range Interpretation Comments Sodium (test code = 2951-2) 138 135- 148 mEq/L Potassium (test code = 2823-3) 4.2 3.5- 5.0 mEq/L Chloride (test code = 5-0) 102 98- 112 mEq/L CO2 (test code = 2027-9) 24 24- 31 mEq/L Anion gap (test code = 26315-4) 12@ANIO 7- 15 mEq/L BUN (test code = 3094-0) 35 mg/dL 6-20 H Creatinine (test code = 2160-0) 5.44 mg/dL 0.7-1.2 H Glucose (test code = 2345-7) 233 mg/dL 65-99 H Calcium (test code = 07877-0) 8.1 mg/dL 8.3-10.2 L Protein (test code = 2885-2) 7.3 g/dL 6.3-8.3 - 4.6- 7.0 g/dL1 week 4.4-7.6 g/dL7 months-1year 5.1-7.3 g/dL1-2 years 5.6-7.5 g/dL>3 years 6.0-8.0 g/sM93-433 6.3-8.3 g/dL Albumin (test code = 1751-7) 1.9 g/dL 3.5-5 L A/G ratio (test code = 1759-0) 0.4 0.7-3.8 L Alkaline phosphatase (test code = 6768-6) 216 U/L 40-129 H AST (test code = 1920-8) 14 U/L 10-50 ALT (test code = 1742-6) 13 U/L 5-50 Total bilirubin (test code = 1974-2) <0.2 0-1.2 Lab Interpretation (test code = 95711-0) Abnormal [place] MethodistPartial thromboplastin time, dcfzsxkjn6250-45-00 16:44:57* Test Item Value Reference Range Interpretation Comments PTT (test code = 75912-0) 35.3 23.0- 36.0 sec PTT therapeutic range for unfractionated heparin is61.0-112.0 seconds which corresponds to Anti-Xa0.3-0.7 U/ml. [place] MethodistProthrombin time with MEP9610-60-35 16:41:55* Test Item Value Reference Range Interpretation Comments Prothrombin time (test code = 5902-2) 16.0 11.5- 14.5 sec H INR (test code = 72863-1) 1.3 Th e International Normalized Ratio (INR) is a therapeutic monitoring tool for patients who are stable on oral anticoagulant therapy. An INR of 2.0-3.0 is suggested for deep vein thrombosis/pulmonary embolism. Lab Interpretation (test code = 80106-7) Abnormal [place] MethodistXR Knee 4+ Vw Xdwdx4218-06-59 14:44:09Hm Interface, Radiology Results 08/14/2019 2:47 PM [...] patellar component appear intact . No loosening noted.[facility] MethodistCapillary blood glucose measurement by glucometer (mass/volume)2019-08-10 10:38:00* Test Item Value Reference Range Interpretation Comments Bedside Glucose (test code = 83057-5) 170 70-120 Meter ID: [id number] [facility] RNWKJWE1349-93-56 16:27:00 [facility] [address] [address] Patient Name: MANJIT LUO MR #: [id number] : 1980 Age/Sex: 39/M Req #: [id number] Adm Physician: ABHIJIT YODER MD Ordered by: FAIZA DOWNEY Report #: [id number] Location: MED/SURG3 Room/Bed: [facility] Procedure: [id number] DX/IR CONS ULT Exam Date: Exam Time: [...] COPY TO: LORE DOWNEY REMOVAL TUNNEDLED CV WPKS2123-06-27 16:27:00 [facility] [address] [address] Patient Name: MANJIT LUO MR #: [id number] : 1980 Age/Sex: 39/M Req #: [id number] Adm Physician: ABHIJIT YODER MD Ordered by: FAIZA DOWNEY Report #: [id number] [facility] Room/Bed: [facility] Procedure: IR/REMOVAL TUNNEDLED CV CATH Exam Date: [...] COPY TO: FAIZA DOWNEY KNEE RIGHT THREE ARIUD0766-28-32 14:06:00 [address] [address] Patient Name: MANJIT LUO MR #: [id number] : 1980 Age/Sex: 39/M Req #: [id number] Adm Physician: ABHIJIT YODER MD Ordered by: ABHIJIT YODER MD Report #: [id number] Location: MED/SURG3 Room/Bed: [facility] Procedure: [id number] DX/KNEE RIGHT TH REE VIEWS Exam Date: [...] By: TIFFANY on 08/09/19 1409 COPY TO: ABHJIIT YODER MD Serum or plasma sodium measurement (moles/volume)2019-08-09 05:45:00* Test Item Value Reference Range Interpretation Comments Sodium Level (test code = 2951-2) 136 136-145 [facility] potassium measurement (moles/volume)2019-08-09 05:45:00* Test Item Value Reference Range Interpretation Comments Potassium Level (test code = 2823-3) 4.1 3.5-5.1 [facility] chloride measurement (moles/volume)2019-08-09 05:45:00* Test Item Value Reference Range Interpretation Comments Chloride Level (test code = 2075-0) 100 98-107 [facility]rum or plasma carbon dioxide, total measurement (moles/volume)2019-08-09 05:45:00* Test Item Value Reference Range Interpretation Comments Carbon Dioxide Level (test code = 2028-9) 25 22-29 [facility]rum or plasma anion glt2824-67-10 05:45:00* Test Item Value Reference Range Interpretation Comments Anion Gap (test code = 56690-9) 15.1 8-16 [facility] plasma urea nitrogen measurement (mass/volume)2019-08-09 05:45:00* Test Item Value Reference Range Interpretation Comments Blood Urea Nitrogen (test code = 3094-0) 37 7-26 [facility] plasma creatinine measurement (mass/volume)2019-08-09 05:45:00* Test Item Value Reference Range Interpretation Comments Creatinine (test code = 2160-0) 6.05 0.72-1.25 [facility]rum [facility] plasma urea nitrogen/creatinine mass lxwnd3397-55-30 05:45:00* Test Item Value Reference Range Interpretation Comments BUN/Creatinine Ratio (test code = 3097-3) 6 6-25 [facility]ball[facility]ated glomerular filtration rate (GFR) bbvctmfnptrum1253-68-08 05:45:00* Test Item Value Reference Range Interpretation Comments Estimat Glomerular Filtration Rate (test code = 649180860) 10 >60 Ranges were taken from the National Kidney Disease Education Program and the [facility] Kidney Foundation literature.Reference ranges:60 or greater: Gibuvl54-85 ( for 3 consecutive months): Chronic kidney disease 15 or less: Kidney failureHCA Houston Healthcare TomballGlucose argewhzjels7466-37-41 05:45:00* Test Item Value Reference Range Interpretation Comments Glucose Level (test code = DGP1464) 115 74-118 [facility]ererum [facility] plasma calcium measurement (mass/volume)2019-08-09 05:45:00* Test Item Value Reference Range Interpretation Comments Calcium Level (test code = 10422-3) 7.4 8.4-10.2 [facility] TomballPhosphorus pggglxynrnk4997-29-84 05:45:00 * Test Item Value Reference Range Interpretation Comments Phosphorus Level (test code = KSS8141) 5.2 2.3-4.7 [facility]rum or plasma albumin measurement (mass/volume)2019-08-09 05:45:00* Test Item Value Reference Range Interpretation Comments Albumin (test code = 1751-7) 1.7 3.5-5.0 [facility]ererum or plasma intact pararthyroid hormone measurement (mass/volume)2019-08-09 05:45:00* Test Item Value Reference Range Interpretation Comments Parathyroid Hormone (test code = 2731-8) 198 15-65 [facility]ererum or plasma calcium measurement (mass/volume)2019-08-09 05:45:00* Test Item Value Reference Range Interpretation Comments Calcium (Send out) (test code = 08031-7) 7.0 8.7-10.2 [facility] TomballFluoroscopic procedure less than one hour lbkktlga5467-35-36 05:45:00* Test Item Value Reference Range Interpretation Comments Parathyroid Hormone Interpretation (test code = Parathyroid Hormone Interpretation) Comment . Interpretation Intact PTH Calcium (pg/mL) (mg/dL)Normal 15 - 65 8.6 - 10.2Pr imary Hyperparathyroidism >65 >10.2Secondary Hyperparathyroidism >65 <10.2Non-Parathyroid Hypercalcemia <65 >10.2Hypoparathyroidism <15 < 8.6Non- Parathyroid Hypocalcemia 15 - 65 < 8.6Performed at: [facility] [address] [id number] Director: Doc Bartlett MD, Phone: [phone] at: [employer] [address] [id number] Director: Raul Bolivar MD, Phone: [phone] Houston Healthcare TomballBacterial urine hhzxrow0239-69-07 09:57:00* Test Item Value Reference Range Interpretation Comments Urine Culture (test code = 630-4) ENTEROCOCCUS FAECALIS [facility] TomballBlood leukocytes automated count (number/volume)2019-08-08 05:30:00* Test Item Value Reference Range Interpretation Comments White Blood Count (test code = 6690-2) 4.79 4.8-10.8 [facility] TomballBlood erythrocytes automated count (number/volume)2019-08-08 05:30:00* Test Item Value Reference Range Interpretation Comments Red Blood Count (test code = 789-8) 3.83 4.3-5.7 [facility] TomballBlood hemoglobin measurement (moles/volume)2019-08-08 05:30:00* Test Item Value Reference Range Interpretation Comments Hemoglobin (test code = 55118-1) 9.8 14.0-18.0 [facility] TomballAutomated blood hematocrit (volume fraction)2019-08-08 05:30:00* Test Item Value Reference Range Interpretation Comments Hematocrit (test code = 4544-3) 30.8 38.2-49.6 [facility] TomballAutomated erythrocyte mean corpuscular udribf2759-43-25 05:30:00* Test Item Value Reference Range Interpretation Comments Mean Corpuscular Volume (test code = 787-2) 80.4 81-99 [facility] TomballAutomated erythrocyte mean corpuscular hemoglobin (mass per erythrocyte)2019-08-08 05:30:00* Test Item Value Reference Range Interpretation Comments Mean Corpuscular Hemoglobin (test code = 785-6) 25.6 28-32 [facility] TomballAutomated erythrocyte mean corpuscular hemoglobin concentration measurement (mass/volume)2019-08-08 05:30:00* Test Item Value Reference Range Interpretation Comments Mean Corpuscular Hemoglobin Concent (test code = 786-4) 31.8 31-35 [facility] TomballRDW OoyIz-Hsn5303-48-15 05:30:00* Test Item Value Reference Range Interpretation Comments Red Cell Distribution Width (test code = 98951-5) 15.1 11.7 -14.4 [facility] TomballAutomated blood platelet count (count/volume)2019-08-08 05:30:00* Test Item Value Reference Range Interpretation Comments Platelet Count (test code = 777-3) 143 140-360 [facility] TomballAutomated blood segmented neutrophil count as percentage of total drhplweoyd1850-07-07 05:30:00* Test Item Value Reference Range Interpretation Comments Neutrophils (%) (Auto) (test code = 29462-5) 58.9 38.7-80.0 [facility] TomballAutomated blood lymphocyte count as percentage ot total aasrcukure6878-56-32 05:30:00* Test Item Value Reference Range Interpretation Comments Lymphocytes (%) (Auto) (test code = 736-9) 25.5 18.0-39.1 [facility] TomballAutomated blood monocyte count as percentage of total iipdihicmn1866-56-14 05:30:00* Test Item Value Reference Range Interpretation Comments Monocytes (%) (Auto) (test code = 5905-5) 11.9 4.4-11.3 [facility] TomballAutomated blood eosinophil count as percentage of total knssnswjem2293-40-45 05:30:00* Test Item Value Reference Range Interpretation Comments Eosinophils (%) (Auto) (test code = 713-8) 2.7 0.0-6.0 [facility] TomballAutomated blood basophil count as percentage of total hgjsgznweo6836-94-97 05:30:00* Test Item Value Reference Range Interpretation Comments Basophils (%) (Auto) (test code = 706-2) 0.6 0.0-1.0 [facility] TomballFluoroscopic procedure less than one hour skjaaxel5250-20-71 05:30:00* Test Item Value Reference Range Interpretation Comments IM GRANULOCYTES % (test code = IM GRANULOCYTES %) 0.4 0.0- 1.0 [facility] TomballAutomated blood neutrophil count 2019-08-08 05:30:00* Test Item Value Reference Range Interpretation Comments Neutrophils # (Auto) (test code = 751-8) 2.8 2.1-6.9 [facility] TomballBlood lymphocytes count (number/volume) 2019-08-08 05:30:00* Test Item Value Reference Range Interpretation Comments Lymphocytes # (Auto) (test code = 60730-4) 1.2 1.0-3.2 [facility]ballBlood monocytes automated count (number/volume)2019-08-08 05:30:00* Test Item Value Reference Range Interpretation Comments Monocytes # (Auto) (test code = 742-7) 0.6 0.2-0.8 [facility] TomballAutomated blood eosinophil count 2019-08-08 05:30:00* Test Item Value Reference Range Interpretation Comments Eosinophils # (Auto) (test code = 711-2) 0.1 0.0-0.4 [facility] TomballAutomated blood basophil count (count/volume)2019-08-08 05:30:00* Test Item Value Reference Range Interpretation Comments Basophils # (Auto) (test code = 704-7) 0.0 0.0-0.1 [facility] TomballFluoroscopic procedure less than one hour iltkvign4034-53-01 05:30:00* Test Item Value Reference Range Interpretation Comments Absolute Immature Granulocyte (auto (shin t code = Absolute Immature Granulocyte (auto) 0.02 0-0.1 [facility] TomballProthrombin time (PT) in platelet poor plasma by coagulation giehh0632-03-54 09:05:00* Test Item Value Reference Range Interpretation Comments Prothrombin Time (test code = 5902-2) 15.8 11.9-14.5 [facility] TomballINR in Platelet poor plasma by Coagulation xbuea0487-61-04 09:05:00* Test Item Value Reference Range Interpretation Comments Prothromb Time International Ratio (test code = 6301-6) 1.18 Oral Anticoagulant Therapy INR Values:1. Low Intensity Therapy 1.5 - 2.02 . Moderate Intensity Therapy 2.0 - 3.03. High Intensity Therapy(1) 2.5 - 3. 54. High Intensity Therapy(2) 3.0 - 4.05. Panic Value INR > 5.0 [facility] TomballActivated partial thromboplastin time (aPTT) in platelet poor plasma by coagulation mhwvf2437-52-26 09:05:00* Test Item Value Reference Range Interpretation Comments Activated Partial Thromboplast Time (test code = 49712-1) 39.3 23.8-35.5 [facility] total bilirubin measurement (mass/volume)2019-08-05 09:05:00* Test Item Value Reference Range Interpretation Comments Total Bilirubin (test code = 1975-2) 0.4 0.2-1.2 [facility] TomballFluoroscopic procedure less than one hour eeinoogl1311-55-82 09:05:00* Test Item Value Reference Range Interpretation Comments Aspartate Amino Transf (AST/SGOT) (test code = Aspartate Amino Transf (AST/SGOT)) 18 5-34 [facility] plasma alanine aminotransferase measurement (enzymatic activity/volume)2019-08-05 09:05:00* Test Item Value Reference Range Interpretation Comments Alanine Aminotransferase (ALT/SGPT) (test code = 1742-6) 14 0-55 [facility] plasma protein measurement (mass/volume)2019-08-05 09:05:00* Test Item Value Reference Range Interpretation Comments Total Protein (test code = 2885-2) 6.7 6.5-8.1 [facility] TomballPlasma globulin measurement (mass/volume) 2019-08-05 09:05:00* Test Item Value Reference Range Interpretation Comments Globulin (test code = 13989-5) 4.5 2.3-3.5 [facility] plasma albumin/globulin mass xdlnu4262-35-50 09:05:00* Test Item Value Reference Range Interpretation Comments Albumin/Globulin Ratio (test code = 1759-0) 0.5 0.8-2.0 [facility] plasma alkaline phosphatase measurement (enzymatic activity/volume)2019-08-05 09:05:00* Test Item Value Reference Range Interpretation Comments Alkaline Phosphatase (test code = 6768-6) 186 40-150 [facility] plasma creatine kinase measurement (enzymatic activity/volume)2019-08-05 09:05:00* Test Item Value Reference Range Interpretation Comments Creatine Kinase (test code = 2157-6) 64 30-200 [facility] or plasma creatine kinase MB measurement (mass/volume)2019-08-05 09:05:00* Test Item Value Reference Range Interpretation Comments Creatine Kinase MB (test code = 77263-9) 1.20 0-5.0 [facility] TomballTroponin I measurement by highly sensitive enzyme fmnhrbdttzb0698-28-34 09:05:00* Test Item Value Reference Range Interpretation Comments Troponin I (test code = 10087-4) 0.034 0-0.300 [facility] TomballBlood greqlse8789-49-76 23:15:00* Test Item Value Reference Range Interpretation Comments Blood Culture (test code = 64624940) NO GROWTH AFTER 5 DAYS, FINAL REPORT [facility] SINGLE (PORTABLE)2019-08-04 23:03:00 [facility] [address] [address] Patient Name: MANJIT LUO MR #: [id number] : 1980 Age/Sex: 39/M Req #: [id number] Adm Physician: Ordered by: MARIELLE MARSH MD Report #: [id number] Location: ER Room/Bed: Procedure: [id number] DX/[facility] SINGLE (PORTABLE) Exam Date: 08/04/19 Exam [...] COPY TO: MARIELLE PERSON MD CT ABDOMEN/PELVIS [id number] 22:15:[address] [address] Patient Name: MANJIT LUO MR #: [id number] : 1980 Age/Sex: 39/M Req #: [id number] Adm Physician: Ordered by: MARIELLE MARSH MD Report #: [id number] Location: ER Room/Bed: Procedure: [id number] CT/CT ABDOMEN/PELVIS WO Exam Date: 08/04/19 Exam [...] (test code = 5778-6) YELLOW YELLOW [facility] qflpcxz9418-47-94 22:13:00* Test Item Value Reference Range Interpretation Comments Urine Clarity (test code = 12124-2) SL CLOUDY CLEAR [facility] Centerpecific gravity of Urine by Test strip 2019-08-04 22:13:00* Test Item Value Reference Range Interpretation Comments Urine Specific [place] (test code = 5811-5) 1.020 1.010-1.02 5 [facility] TomballUrine pH measurement by automated test rduqv3364-12-52 22:13:00* Test Item Value Reference Range Interpretation Comments Urine pH (test code = 81337-5) 5.5 5-7 [facility] TomballUrine leukocyte esterase detection by mimkxdjt3590-89-86 22:13:00* Test Item Value Reference Range Interpretation Comments Urine Leukocyte Esterase (test code = 5799-2) SMALL NEGATIVE [facility] TomballUrine nitrite fezthnkxw1663-10-41 22:13:00* Test Item Value Reference Range Interpretation Comments Urine Nitrite (test code = 86268-4) NEGATIVE NEGATIVE [facility] TomballUrine protein measurement by test strip (mass/volume)2019-08-04 22:13:00* Test Item Value Reference Range Interpretation Comments Urine Protein (test code = 5804-0) >=300 NEGATIVE [facility] TomballUrine glucose tdzstgehr8585-53-31 22:13:00* Test Item Value Reference Range Interpretation Comments Urine Glucose (UA) (test code = 2349-9) 1+ NEGATIVE [facility] TomballUrine ketones detection by automated test hwjcc8825-81-25 22:13:00* Test Item Value Reference Range Interpretation Comments Urine Ketones (test code = 41353-4) NEGATIVE NEGATIVE [facility] TomballUrine urobilinogen measurement by test strip (mass/volume)2019-08-04 22:13:00* Test Item Value Reference Range Interpretation Comments Urine Urobilinogen (test code = 45527-2) 0.2 0.2-1 [facility] TomballUrine total bilirubin measurement (mass/volume)2019-08-04 22:13:00* Test Item Value Reference Range Interpretation Comments Urine Bilirubin (test code = 1978-6) NEGATIVE NEGATIVE [facility] TomballUrine erythrocytes hezfgztmk4540-96-96 22:13:00* Test Item Value Reference Range Interpretation Comments Urine Blood (test code = 67149-8) MODERATE NEGATIVE [facility] TomballAutomated urine sediment leukocyte count by microscopy (number/high power field)2019-08-04 22:13:00* Test Item Value Reference Range Interpretation Comments Urine WBC (test code = 5821-4) >50 0-5 [facility] TomballErythrocytes detection in urine sediment by light hyzyvgerpy8924-76-56 22:13:00* Test Item Value Reference Range Interpretation Comments Urine RBC (test code = 19381-8) >50 0-5 [facility] TomballBacteria detection in urine sediment by light zuqwkltcto7524-80-55 22:13:00* Test Item Value Reference Range Interpretation Comments Urine Bacteria (test code = 45446-4) MANY NONE [facility] TomballEpithelial cells detection in urine sediment by light oeeslcsfgp5884-19-46 22:13:00* Test Item Value Reference Range Interpretation Comments Urine Epithelial Cells (test code = 80277-8) MANY NONE [facility] TomballBacterial urine uszqsme8933-69-49 22:13:00* Test Item Value Reference Range Interpretation Comments Urine Culture (test code = 630-4) ENTEROCOCCUS FAECALIS [facility] TomballFluoroscopic procedure less than one hour khgfcxvn7267-90-98 21:23:00* Test Item Value Reference Range Interpretation Comments Lactic Acid Level (test code = Lactic Acid Level) 1.8 0.5- 2.0 [facility] TomballFluoroscopic procedure less than one hour hecfzqjm3839-83-90 00:10:00* Test Item Value Reference Range Interpretation [...] complexity tests.Testing performed by [facility] [address] [place], [place] [id number] Director: Alonzo Rhodes M.D.JESSA # [id number] [facility] Healthcare Tomball Capillary blood glucose measurement by glucometer (mass/volume)2019-06-22 19:22:00* Test Item Value Reference Range Interpretation Comments Bedside Glucose (test code = 99825-2) 328 70-120 Meter ID: [id number] Medical Centererum or plasma sodium measurement (moles/volume)2019-06-22 05:05:00* Test Item Value Reference Range Interpretation Comments Sodium Level (test code = 2951-2) 135 136-145 [facility] TomballVenous blood ionized calcium measurement (mass/volume)2019-06-22 05:05:00* Test Item Value Reference Range Interpretation Comments Ionized Calcium (test code = 61771-5) 1.1 1.09-1.30 [facility] or plasma potassium measurement (moles/volume)2019-06-22 05:05:00* Test Item Value Reference Range Interpretation Comments Potassium Level (test code = 2823-3) 4.5 3.5-5.1 [facility] or plasma chloride measurement (moles/volume)2019-06-22 05:05:00* Test Item Value Reference Range Interpretation Comments Chloride Level (test code = 2075-0) 100 98-107 [facility]ererum or plasma carbon dioxide, total measurement (moles/volume)2019-06-22 05:05:00* Test Item Value Reference Range Interpretation Comments Carbon Dioxide Level (test code = 2028-9) 30 22-29 [facility]rum or plasma anion svc2058-41-00 05:05:00* Test Item Value Reference Range Interpretation Comments Anion Gap (test code = 15405-7) 9.5 8-16 [facility] or plasma urea nitrogen measurement (mass/volume)2019-06-22 05:05:00* Test Item Value Reference Range Interpretation Comments Blood Urea Nitrogen (test code = 3094-0) 34 7-26 [facility]ere[facility] or plasma creatinine measurement (mass/volume)2019-06-22 05:05:00* Test Item Value Reference Range Interpretation Comments Creatinine (test code = 2160-0) 4.42 0.72-1.25 [facility]ererum or plasma urea nitrogen/creatinine mass yvjng5913-17-38 05:05:00* Test Item Value Reference Range Interpretation Comments BUN/Creatinine Ratio (test code = 3097-3) 8 6-25 [facility] TomballEstimated glomerular filtration rate (GFR) dqdidthgpuuzk1903-81-91 05:05:00* Test Item Value Reference Range Interpretation Comments Estimat Glomerular Filtration Rate (test code = 123176943) 15 >60 Ranges were taken from the National Kidney Disease Education Program and the [employer] literature.Reference ranges:60 or greater: Dxskut48-20 ( for 3 consecutive months): Chronic kidney disease 15 or less: Kidney failureHCA Houston Healthcare TomballGlucose ykaincbmdrd6850-93-22 05:05:00* Test Item Value Reference Range Interpretation Comments Glucose Level (test code = KBG2308) 271 74-118 [facility] or plasma calcium measurement (mass/volume)2019-06-22 05:05:00* Test Item Value Reference Range Interpretation Comments Calcium Level (test code = 81476-9) 7.7 8.4-10.2 [facility] or plasma albumin measurement (mass/volume)2019-06-22 05:05:00* Test Item Value Reference Range Interpretation Comments Albumin (test code = 1751-7) 1.6 3.5-5.0 [facility] TomballVenous blood ionized calcium measurement (mass/volume)2019-06-22 05:05:00* Test Item Value Reference Range Interpretation Comments Ionized Calcium (test code = 67452-7) 1.1 1.09-1.30 [facility] TomballBlood leukocytes automated count (number/volume)2019-06-20 05:10:00* Test Item Value Reference Range Interpretation Comments White Blood Count (test code = 6690-2) 3.29 4.8-10.8 [facility] TomballBlood erythrocytes automated count (number/volume)2019-06-20 05:10:00* Test Item Value Reference Range Interpretation Comments Red Blood Count (test code = 789-8) 3.57 4.3-5.7 [facility] TomballBlood hemoglobin measurement (moles/volume)2019-06-20 05:10:00* Test Item Value Reference Range Interpretation Comments Hemoglobin (test code = 18586-8) 9.0 14.0-18.0 [facility] TomballAutomated blood hematocrit (volume fraction)2019-06-20 05:10:00* Test Item Value Reference Range Interpretation Comments Hematocrit (test code = 4544-3) 29.1 38.2-49.6 [facility] TomballAutomated erythrocyte mean corpuscular vvzauv0944-06-98 05:10:00* Test Item Value Reference Range Interpretation Comments Mean Corpuscular Volume (test code = 787-2) 81.5 81-99 [facility] TomballAutomated erythrocyte mean corpuscular hemoglobin (mass per erythrocyte)2019-06-20 05:10:00* Test Item Value Reference Range Interpretation Comments Mean Corpuscular Hemoglobin (test code = 785-6) 25.2 28-32 [facility] TomballAutomated erythrocyte mean corpuscular hemoglobin concentration measurement (mass/volume)2019-06-20 05:10:00* Test Item Value Reference Range Interpretation Comments Mean Corpuscular Hemoglobin Concent (test code = 786-4) 30.9 31-35 [facility] TomballRDW LxeLw-Ttw1447-73-27 05:10:00* Test Item Value Reference Range Interpretation Comments Red Cell Distribution Width (test code = 54801-8) 14.9 11.7 -14.4 [facility] TomballAutomated blood platelet count (count/volume)2019-06-20 05:10:00* Test Item Value Reference Range Interpretation Comments Platelet Count (test code = 777-3) 133 140-360 [facility] TomballAutnovant health mat[facility] centered blood segmented neutrophil count as percentage of total fzskqydtfa6826-07-29 05:10:00* Test Item Value Reference Range Interpretation Comments Neutrophils (%) (Auto) (test code = 14856-8) 48.9 38.7-80.0 [facility] TomballAutomated blood lymphocyte count as percentage ot total sjfzpiitgy6891-57-95 05:10:00* Test Item Value Reference Range Interpretation Comments Lymphocytes (%) (Auto) (test code = 736-9) 31.0 18.0-39.1 [facility] TomballAutomated blood monocyte count as percentage of total xxfmzrseib3066-82-11 05:10:00* Test Item Value Reference Range Interpretation Comments Monocytes (%) (Auto) (test code = 5905-5) 11.9 4.4-11.3 [facility] TomballAutomated blood eosinophil count as percentage of total spvadoeawp3735-07-59 05:10:00* Test Item Value Reference Range Interpretation Comments Eosinophils (%) (Auto) (test code = 713-8) 7.3 0.0-6.0 [facility] TomballAutomated blood basophil count as percentage of total kdstpvhgib3899-39-46 05:10:00* Test Item Value Reference Range Interpretation Comments Basophils (%) (Auto) (test code = 706-2) 0.3 0.0-1.0 [facility] TomballFluoroscopic procedure less than one hour khjuegxv0130-76-88 05:10:00* Test Item Value Reference Range Interpretation Comments IM GRANULOCYTES % (test code = IM GRANULOCYTES %) 0.6 0.0- 1.0 [facility] TomballAutomated blood neutrophil count 2019-06-20 05:10:00* Test Item Value Reference Range Interpretation Comments Neutrophils # (Auto) (test code = 751-8) 1.6 2.1-6.9 [facility] TomballBlood lymphocytes count (number/volume) 2019-06-20 05:10:00* Test Item Value Reference Range Interpretation Comments Lymphocytes # (Auto) (test code = 90007-8) 1.0 1.0-3.2 [facility] TomballBlood monocytes automated count (number/volume)2019-06-20 05:10:00* Test Item Value Reference Range Interpretation Comments Monocytes # (Auto) (test code = 742-7) 0.4 0.2-0.8 [facility] TomballAutomated blood eosinophil count 2019-06-20 05:10:00* Test Item Value Reference Range Interpretation Comments Eosinophils # (Auto) (test code = 711-2) 0.2 0.0-0.4 [facility] TomballAutomated blood basophil count (count/volume)2019-06-20 05:10:00* Test Item Value Reference Range Interpretation Comments Basophils # (Auto) (test code = 704-7) 0.0 0.0-0.1 [facility] TomballFluoroscopic procedure less than one hour xvmqjmsc8305-78-32 05:10:00* Test Item Value Reference Range Interpretation Comments Absolute Immature Granulocyte (auto (shin t code = Absolute Immature Granulocyte (auto) 0.02 0-0.1 [facility] TomballCHEST 2 NWZYL9877-87-41 10:46:00 [facility] [address] [place] [address] Patient Name: MANJIT LUO MR #: [id number] : 1980 Age/Sex: 38/M Req #: [id number] Adm Physician: ABHIJIT YODER MD Ordered by: CASTRO JALLOH MD Report #: [id number] Location: MED/SURG Room/Bed: [facility] Procedure: [id number] DX/CH EST 2 VIEWS Exam Date: Exam [...] 047 COPY TO: CASTRO JALLOH MD Blood pcaguyy9719-75-88 09:50:00* Test Item Value Reference Range Interpretation Comments Blood Culture (test code = 10614502) NO GROWTH AFTER 5 DAYS, FINAL REPORT [facility] or plasma intact pararthyroid hormone measurement (mass/volume)2019-06-15 05:20:00* Test Item Value Reference Range Interpretation Comments Parathyroid Hormone (Intact) (test code = 2731-8) 313 15-6 5 Performed at: [facility] [address] [id number] Director: Doc Bartlett MD, Phone: [phone] Medical Centererum or plasma intact pararthyroid hormone measurement (mass/volume) 2019-06-15 05:20:00* Test Item Value Reference Range Interpretation Comments Parathyroid Hormone (Intact) (test code = 2731-8) 313 15-6 5 Performed at: [facility] [address] [id number] Director: Doc Bartlett MD, Phone: [phone] Medical Centererum or plasma magnesium measurement (mass/volume)2019-06-13 17:37:00* Test Item Value Reference Range Interpretation Comments Magnesium Level (test code = 11811-7) 1.5 1.3-2.1 [facility]ererum or plasma magnesium measurement (mass/volume)2019-06-13 17:37:00* Test Item Value Reference Range Interpretation Comments Magnesium Level (test code = 32122-9) 1.5 1.3-2.1 [facility] SINGLE (PORTABLE)2019-06-13 17:09:00 [facility] [address] [address] Patient Name: MANJIT LUO MR #: [id number] : 1980 Age/Sex: 38/M Req #: [id number] Adm Physician: ABHIJIT YODER MD Ordered by: CASTRO JALLOH MD Report #: [id number] Location: MED/SURG Room/Bed: [facility] Procedure: [id number] DX/CH EST SINGLE (PORTABLE) Exam Date: 06/13/19 [...] Bilirubin (test code = 1975-2) 0.3 0.2-1.2 [facility] TomballFluoroscopic procedure less than one hour asbediju0757-46-91 05:30:00* Test Item Value Reference Range Interpretation Comments Aspartate Amino Transf (AST/SGOT) (test code = Aspartate Amino Transf (AST/SGOT)) 38 5-34 [facility]rum or plasma alanine aminotransferase measurement (enzymatic activity/volume)2019-06-13 05:30:00* Test Item Value Reference Range Interpretation Comments Alanine Aminotransferase (ALT/SGPT) (test code = 1742-6) 22 0-55 [facility]ererum or plasma protein measurement (mass/volume)2019-06-13 05:30:00* Test Item Value Reference Range Interpretation Comments Total Protein (test code = 2885-2) 7.6 6.5-8.1 [facility] TomballPlasma globulin measurement (mass/volume) 2019-06-13 05:30:00* Test Item Value Reference Range Interpretation Comments Globulin (test code = 38710-1) 5.1 2.3-3.5 [facility]rum or plasma albumin/globulin mass bwazy7533-89-58 05:30:00* Test Item Value Reference Range Interpretation Comments Albumin/Globulin Ratio (test code = 1759-0) 0.5 0.8-2.0 [facility]ererum or plasma alkaline phosphatase measurement (enzymatic activity/volume)2019-06-13 05:30:00* Test Item Value Reference Range Interpretation Comments Alkaline Phosphatase (test code = 6768-6) 332 40-150 [facility] TomballUrine color ddarmrdamayek5583-09-29 12:24:00* Test Item Value Reference Range Interpretation Comments Urine Color (test code = 5778-6) YELLOW YELLOW [facility] TomballUrine zcqolta8461-48-94 12:24:00* Test Item Value Reference Range Interpretation Comments Urine Clarity (test code = 69476-3) TURBID CLEAR [facility] Centerpecific gravity of Urine by Test strip 2019-06-12 12:24:00* Test Item Value Reference Range Interpretation Comments Urine Specific [place] (test code = 5811-5) 1.020 1.010-1.02 5 [facility] TomballUrine pH measurement by automated test fwtle0981-68-01 12:24:00* Test Item Value Reference Range Interpretation Comments Urine pH (test code = 07142-0) 6 5-7 [facility] TomballUrine leukocyte esterase detection by gtoymttq3155-00-12 12:24:00* Test Item Value Reference Range Interpretation Comments Urine Leukocyte Esterase (test code = 5799-2) 1+ NEGATIVE [facility] TomballUrine nitrite zxeyashas6423-98-82 12:24:00* Test Item Value Reference Range Interpretation Comments Urine Nitrite (test code = 73064-7) NEGATIVE NEGATIVE [facility] TomballUrine protein measurement by test strip (mass/volume)2019-06-12 12:24:00* Test Item Value Reference Range Interpretation Comments Urine Protein (test code = 5804-0) >=300 NEGATIVE [facility] TomballUrine glucose mjoumaiww4605-56-00 12:24:00* Test Item Value Reference Range Interpretation Comments Urine Glucose (UA) (test code = 2349-9) NEGATIVE NEGATIVE [facility] TomballUrine ketones detection by automated test fzqvr3734-60-21 12:24:00* Test Item Value Reference Range Interpretation Comments Urine Ketones (test code = 88674-1) TRACE NEGATIVE [facility] TomballUrine urobilinogen measurement by test strip (mass/volume)2019-06-12 12:24:00* Test Item Value Reference Range Interpretation Comments Urine Urobilinogen (test code = 40086-6) 0.2 0.2-1 [facility] TomballUrine total bilirubin measurement (mass/volume)2019-06-12 12:24:00* Test Item Value Reference Range Interpretation Comments Urine Bilirubin (test code = 1978-6) NEGATIVE NEGATIVE [facility] TomballUrine erythrocytes giobhmkbe8634-64-37 12:24:00* Test Item Value Reference Range Interpretation Comments Urine Blood (test code = 27897-4) 3+ NEGATIVE [facility] TomballAutomated urine sediment leukocyte count by microscopy (number/high power field)2019-06-12 12:24:00* Test Item Value Reference Range Interpretation Comments Urine WBC (test code = 5821-4) 21-50 0-5 [facility] TomballErythrocytes detection in urine sediment by light oxfxmtaxny9899-79-61 12:24:00* Test Item Value Reference Range Interpretation Comments Urine RBC (test code = 83888-5) 11-20 0-5 [facility] TomballBacteria detection in urine sediment by light evaoqqgusb3335-02-66 12:24:00* Test Item Value Reference Range Interpretation Comments Urine Bacteria (test code = 95977-1) MANY NONE [facility] TomballEpithelial cells detection in urine sediment by light vlstnzkjav6797-64-64 12:24:00* Test Item Value Reference Range Interpretation Comments Urine Epithelial Cells (test code = 27779-7) RARE NONE [facility] TomballMucus detection in urine sediment by light tddwfyiarf3268-86-62 12:24:00* Test Item Value Reference Range Interpretation Comments Urine Mucus (test code = 8247-9) FEW RARE [facility] TomballMucus detection in urine sediment by light eaiwxpedin1107-28-95 12:24:00* Test Item Value Reference Range Interpretation Comments Urine Mucus (test code = 8247-9) FEW RARE [facility] TomballBNP Jnt-tAnm8857-28-19 12:15:00* Test Item Value Reference Range Interpretation Comments B-Type Natriuretic Peptide (test code = 51621-6) 218.9 0-100 [facility] or plasma creatine kinase measurement (enzymatic activity/volume)2019-06-12 12:15:00* Test Item Value Reference Range Interpretation Comments Creatine Kinase (test code = 2157-6) 65 30-200 [facility] plasma creatine kinase MB measurement (mass/volume)2019-06-12 12:15:00* Test Item Value Reference Range Interpretation Comments Creatine Kinase MB (test code = 84938-3) 3.90 0-5.0 [facility] TomballTroponin I measurement by highly sensitive enzyme igioudsrpkb0593-16-22 12:15:00* Test Item Value Reference Range Interpretation Comments Troponin I (test code = 68880-4) 0.053 0-0.300 [facility] or plasma lipase measurement (enzymatic activity/volume)2019-06-12 12:15:00* Test Item Value Reference Range Interpretation Comments Lipase (test code = 3040-3) 14 [facility] or plasma ethanol measurement (mass/volume)2019-06-12 12:15:00* Test Item Value Reference Range Interpretation Comments Ethyl Alcohol Level (test code = 5643-2) < 10.0 0.0-10.0 [facility] Vek-sVwp5142-25-19 12:15:00* Test Item Value Reference Range Interpretation Comments B-Type Natriuretic Peptide (test code = 17709-8) 218.9 0-100 [facility] plasma lipase measurement (enzymatic activity/volume)2019-06-12 12:15:00* Test Item Value Reference Range Interpretation Comments Lipase (test code = 3040-3) 14 [facility] plasma ethanol measurement (mass/volume)2019-06-12 12:15:00* Test Item Value Reference Range Interpretation Comments Ethyl Alcohol Level (test code = 5643-2) < 10.0 0.0-10.0 [facility] TomballCHEST SINGLE (PORTABLE)2019-06-12 12:12:00 [place] [address] Patient Name: MANJIT LUO MR #: [id number] : 1980 Age/Sex: 38/M Req #: [id number] Adm Physician: Ordered by: JONATHAN YODER DO Report #: [id number] Location: ER Room/Bed: Procedure: [id number] DX/ CHEST SINGLE (PORTABLE) Exam Date: 06/12/19 [...] 1215 COPY TO: JONATHAN YODER DO Urine GVN4616-12-36 06:13:00* Test Item Value Reference Range Interpretation Comments Urine WBC (test code = 5821-4) >50 0-5 H [facility] TomballUrine NDR4560-36-14 06:13:00* Test Item Value Reference Range Interpretation Comments Urine RBC (test code = 65504-8) 11-20 0-5 H [facility] TomballUrine Mrdhkypj0084-53-06 06:13:00* Test Item Value Reference Range Interpretation Comments Urine Bacteria (test code = 99503-2) FEW NONE [facility]ballUrine Epithelial Wzxwt9099-26-53 06:13:00 * Test Item Value Reference Range Interpretation Comments Urine Epithelial Cells (test code = 32449-6) FEW NONE [facility] TomballUrine Hkaev9412-78-54 05:56:00* Test Item Value Reference Range Interpretation Comments Urine Color (test code = 5778-6) YELLOW YELLOW [facility] TomballUrine Bvovvch0503-28-45 05:56:00* Test Item Value Reference Range Interpretation Comments Urine Clarity (test code = 46832-3) CLOUDY CLEAR H [facility] TomballUrine Specific Rbqwgss1395-99-50 05:56:00 * Test Item Value Reference Range Interpretation Comments Urine Specific [place] (test code = 5811-5) 1.025 1.010-1.02 5 [facility] TomballUrine nN2708-29-20 05:56:00* Test Item Value Reference Range Interpretation Comments Urine pH (test code = 08499-5) 7 5-7 [facility] TomballUrine Leukocyte Xkzkjeoa5583-45-94 05:56:00* Test Item Value Reference Range Interpretation Comments Urine Leukocyte Esterase (test code = 5799-2) MODERATE NEGATIVE [facility] TomballUrine Dbovrdu5249-16-00 05:56:00* Test Item Value Reference Range Interpretation Comments Urine Nitrite (test code = 39806-9) NEGATIVE NEGATIVE [facility] TomballUrine Avaonrz5600-05-18 05:56:00* Test Item Value Reference Range Interpretation Comments Urine Protein (test code = 5804-0) >=300 NEGATIVE [facility] TomballUrine Glucose (UA)2019-06-09 05:56:00* Test Item Value Reference Range Interpretation Comments Urine Glucose (UA) (test code = 2349-9) NEGATIVE NEGATIVE [facility] TomballUrine Woilvxf0708-59-82 05:56:00* Test Item Value Reference Range Interpretation Comments Urine Ketones (test code = 38990-9) NEGATIVE NEGATIVE [facility] TomballUrine Oflmzizjmmoj1946-28-69 05:56:00* Test Item Value Reference Range Interpretation Comments Urine Urobilinogen (test code = 26095-7) 0.2 0.2-1 [facility] TomballUrine Kebfropqh1143-26-97 05:56:00* Test Item Value Reference Range Interpretation Comments Urine Bilirubin (test code = 1978-6) NEGATIVE NEGATIVE [facility] TomballUrine Utomh1490-55-18 05:56:00* Test Item Value Reference Range Interpretation Comments Urine Blood (test code = 30049-2) 2+ NEGATIVE [facility] TomballAmylase Bownw1271-94-19 05:47:00* Test Item Value Reference Range Interpretation Comments Amylase Level (test code = 1798-8) 41 25-125 [facility] TomballLipase2020-04-16 05:47:00* Test Item Value Reference Range Interpretation Comments Lipase (test code = 3040-3) 15 8-78 [facility]odium Clrie9972-00-13 05:37:00* Test Item Value Reference Range Interpretation Comments Sodium Level (test code = 2951-2) 135 136-145 L [facility] TomballPotassium Ilbzi9338-48-07 05:37:00* Test Item Value Reference Range Interpretation Comments Potassium Level (test code = 2823-3) 5.0 3.5-5.1 [facility] TomballChloride Nkwly0978-88-95 05:37:00* Test Item Value Reference Range Interpretation Comments Chloride Level (test code = 2075-0) 107 98-107 [facility] TomballCarbon Dioxide Gtzzp5110-29-39 05:37:00* Test Item Value Reference Range Interpretation Comments Carbon Dioxide Level (test code = 2028-9) 20 22-29 L [facility] TomballAnion Adk2535-47-32 05:37:00* Test Item Value Reference Range Interpretation Comments Anion Gap (test code = 80937-1) 13.0 8-16 [facility] TomballBlood Urea Gshxrffc2656-19-84 05:37:00* Test Item Value Reference Range Interpretation Comments Blood Urea Nitrogen (test code = 3094-0) 55 7-26 H [facility] TomballCreatinine2020-04-16 05:37:00* Test Item Value Reference Range Interpretation Comments Creatinine (test code = 2160-0) 5.13 0.72-1.25 H [facility] TomballBUN/Creatinine Rcodc8916-73-54 05:37:00* Test Item Value Reference Range Interpretation Comments BUN/Creatinine Ratio (test code = 3097-3) 11 6-25 [facility] TomballEstimat Glomerular Filtration Rate 2019-06-09 05:37:00* Test Item Value Reference Range Interpretation Comments Estimat Glomerular Filtration Rate (test code = 991043731) 13 >60 L Ranges were taken from the National Kidney Disease Education Program and the [facility] Foundation literature.Reference ranges:60 or greater: Drjesy19-36 ( for 3 consecutive months): Chronic kidney disease 15 or less: Kidney failureHCA Houston Healthcare TomballGlucose Gyjsu7345-61-31 05:37:00* Test Item Value Reference Range Interpretation Comments Glucose Level (test code = PZI6118) 148 74-118 H [facility] TomballCalcium Jatxn7945-91-13 05:37:00* Test Item Value Reference Range Interpretation Comments Calcium Level (test code = 90317-6) 7.6 8.4-10.2 L [facility] TomballTotal Zfjbwmsrj3043-12-11 05:37:00* Test Item Value Reference Range Interpretation Comments Total Bilirubin (test code = 1975-2) 0.2 0.2-1.2 [facility] TomballAspartate Amino Transf (AST/SGOT) 2019-06-09 05:37:00* Test Item Value Reference Range Interpretation Comments Aspartate Amino Transf (AST/SGOT) (test code = Aspartate Amino Transf (AST/SGOT)) 18 5-34 [facility] TomballAlanine Aminotransferase (ALT/SGPT) 2019-06-09 05:37:00* Test Item Value Reference Range Interpretation Comments Alanine Aminotransferase (ALT/SGPT) (test code = 1742-6) 17 0-55 [facility] TomballTotal Ljgzonk8704-96-00 05:37:00* Test Item Value Reference Range Interpretation Comments Total Protein (test code = 2885-2) 8.0 6.5-8.1 [facility] TomballAlbumin2020-04-16 05:37:00* Test Item Value Reference Range Interpretation Comments Albumin (test code = 1751-7) 2.7 3.5-5.0 L [facility] TomballGlobulin2020-04-16 05:37:00* Test Item Value Reference Range Interpretation Comments Globulin (test code = 33213-4) 5.3 2.3-3.5 H [facility] TomballAlbumin/Globulin Aerom0777-28-82 05:37:00 * Test Item Value Reference Range Interpretation Comments Albumin/Globulin Ratio (test code = 1759-0) 0.5 0.8-2.0 L [facility] TomballAlkaline Uxrxpyrvckn4605-00-58 05:37:00* Test Item Value Reference Range Interpretation Comments Alkaline Phosphatase (test code = 6768-6) 279 40-150 H [facility] TomballABDOMEN-1VIEW (KUB)2019-06-09 05:32:00 [facility] [address] [address] Patient Name: MANJIT LUO MR #: [id number] : 1980 Age/Sex: 38/M Req #: [id number] Adm Physician: Ordered by: MARIELLE MARSH MD Report #: [id number] Location: ER Room/Bed: Procedure: [id number] DX/ABDOMEN-1VIEW [...] COPY TO: MARIELLE MARSH MD Bacterial urine gtnalmr8988-79-28 05:25:00* Test Item Value Reference Range Interpretation Comments Urine Culture (test code = 630-4) SUMIT PARAPSILOSIS [facility] TomballWhite Blood Lgixp1037-19-25 05:08:00* Test Item Value Reference Range Interpretation Comments White Blood Count (test code = 6690-2) 6.14 4.8-10.8 [facility] TomballRed Blood Rccom1433-65-41 05:08:00* Test Item Value Reference Range Interpretation Comments Red Blood Count (test code = 789-8) 3.63 4.3-5.7 L [facility] TomballHemoglobin2020-04-16 05:08:00* Test Item Value Reference Range Interpretation Comments Hemoglobin (test code = 98146-8) 9.3 14.0-18.0 L [facility] TomballHematocrit2020-04-16 05:08:00* Test Item Value Reference Range Interpretation Comments Hematocrit (test code = 4544-3) 29.7 38.2-49.6 L [facility] TomballMean Corpuscular Zdxosd5127-74-20 05:08:00* Test Item Value Reference Range Interpretation Comments Mean Corpuscular Volume (test code = 787-2) 81.8 81-99 [facility] TomballMean Corpuscular Bcwxlusoiz1297-83-50 05:08:00* Test Item Value Reference Range Interpretation Comments Mean Corpuscular Hemoglobin (test code = 785-6) 25.6 28-32 L [facility] TomballMe Corpuscular Hemoglobin Concent 2019-06-09 05:08:00* Test Item Value Reference Range Interpretation Comments Mean Corpuscular Hemoglobin Concent (test code = 786-4) 31.3 31-35 [facility] TomballRed Cell Distribution Lsdpu0527-43-85 05:08:00* Test Item Value Reference Range Interpretation Comments Red Cell Distribution Width (test code = 16727-6) 15.0 11.7 -14.4 H [facility] TomballPlatelet Jqtnr5130-20-84 05:08:00* Test Item Value Reference Range Interpretation Comments Platelet Count (test code = 777-3) 141 140-360 [facility] TomballNeutrophils (%) (Auto)2019-06-09 05:08:00 * Test Item Value Reference Range Interpretation Comments Neutrophils (%) (Auto) (test code = 86050-3) 68.2 38.7-80.0 [facility] TomballLymphocytes (%) (Auto)2019-06-09 05:08:00 * Test Item Value Reference Range Interpretation Comments Lymphocytes (%) (Auto) (test code = 736-9) 18.7 18.0-39.1 [facility] TomballMonocytes (%) (Auto)2019-06-09 05:08:00* Test Item Value Reference Range Interpretation Comments Monocytes (%) (Auto) (test code = 5905-5) 6.2 4.4-11.3 [facility] TomballEosinophils (%) (Auto)2019-06-09 05:08:00 * Test Item Value Reference Range Interpretation Comments Eosinophils (%) (Auto) (test code = 713-8) 4.1 0.0-6.0 [facility] TomballBasophils (%) (Auto)2019-06-09 05:08:00* Test Item Value Reference Range Interpretation Comments Basophils (%) (Auto) (test code = 706-2) 0.7 0.0-1.0 [facility] TomballIM GRANULOCYTES %2019-06-09 05:08:00* Test Item Value Reference Range Interpretation Comments IM GRANULOCYTES % (test code = IM GRANULOCYTES %) 2.1 0.0- 1.0 H [facility] TomballNeutrophils # (Auto)2019-06-09 05:08:00* Test Item Value Reference Range Interpretation Comments Neutrophils # (Auto) (test code = 751-8) 4.2 2.1-6.9 [facility] TomballLymphocytes # (Auto)2019-06-09 05:08:00* Test Item Value Reference Range Interpretation Comments Lymphocytes # (Auto) (test code = 31247-7) 1.2 1.0-3.2 [facility] TomballMonocytes # (Auto)2019-06-09 05:08:00* Test Item Value Reference Range Interpretation Comments Monocytes # (Auto) (test code = 742-7) 0.4 0.2-0.8 [facility] TomballEosinophils # (Auto)2019-06-09 05:08:00* Test Item Value Reference Range Interpretation Comments Eosinophils # (Auto) (test code = 711-2) 0.3 0.0-0.4 [facility] TomballBasophils # (Auto)2019-06-09 05:08:00* Test Item Value Reference Range Interpretation Comments Basophils # (Auto) (test code = 704-7) 0.0 0.0-0.1 [facility] TomballAbsolute Immature Granulocyte (auto 2019-06-09 05:08:00* Test Item Value Reference Range Interpretation Comments Absolute Immature Granulocyte (auto (shin t code = Absolute Immature Granulocyte (auto) 0.13 0-0.1 H [facility]rum or plasma amylase measurement (enzymatic activity/volume)2019-06-09 04:50:00* Test Item Value Reference Range Interpretation Comments Amylase Level (test code = 1798-8) 41 25-125 [facility]ererum or plasma amylase measurement (enzymatic activity/volume)2019-06-09 04:50:00* Test Item Value Reference Range Interpretation Comments Amylase Level (test code = 1798-8) 41 25-125 [facility] TomballBlood Xaujjyo5176-11-16 01:59:00* Test Item Value Reference Range Interpretation Comments Blood Culture (test code = 90542123) NO GROWTH AFTER 5 DAYS, FINAL REPORT [facility] Ssgrcti7075-89-46 16:41:00* Test Item Value Reference Range Interpretation Comments Bedside Glucose (test code = 24875-3) 71 70-120 Meter ID: [id number] [facility] Glucose 2019-06-03 16:41:00* Test Item Value Reference Range Interpretation Comments Bedside Glucose (test code = 09666-6) 71 70-120 Meter ID: [id number] [facility] 2019-06-03 10:15:00* Test Item Value Reference Range Interpretation Comments Urine Culture (test code = 630-4) No Result Data Provided [facility] TomballUrine Blydymu6521-33-40 10:15:00* Test Item Value Reference Range Interpretation Comments Urine Culture (test code = 630-4) No Result Data Provided [facility] TomballIR MKXWULA6341-56-27 15:49:00 [place] [address] Patient Name: MANJIT LUO MR #: [id number] : 1980 Age/Sex: 38/M Req #: [id number] Adm Physician: ABHIJIT YODER MD Ordered by: FAIZA DOWNEY Report #: [id number] Location: [facility] Room/Bed: [facility] Procedure: [id number] DX/IR CONSULT Exam Date: Exam Time: REPORT [...] 30. Primary Ope rator: Gen Anthony MD. Core Setter: None. Approach: Left internal jugular vein Estimated [...] the needle into the IVC. A 6 Kosovan peel-away sheath was placed. A subcutaneous tunnel was created in the left anterior chest wall by blunt dissection. A 6 Kosovan dual-lumen tunneled central line was brought through [...] TO: FAIZA DOWNEY TUNNELLED CVC INSERT W/O WDAY0972-09-27 15:49:00 [place] [address] Patient Name: MANJIT LUO MR #: [id number] : 1980 Age/Sex: 38/M Req #: [id number] [facility] Physician: ABHIJIT YODER MD Ordered by: ABHIJIT YODER MD Report #: [id number] Location: MED/SURG3 Room/Bed: [facility] Procedure: [id number] IR/TU NNELLED CVC INSERT W/O PORT Exam Date: Exam Time: REPORT STATUS: Signed Procedures: 1. Tunneled central line placement 2. Tunneled dialysis catheter removal. History: Need for long-term IV antibiotics. Modality: Sonography and fluoroscopy. Sedation: fentanyl 50 mcg was given intravenously for conscious sedation. Vital signs were monitored throughout the procedure by a nurse, and remained stable. Physician intra-service time was 30. Silvering Applicator: Gen Anthony MD. Core Setter: None. Approach: Left internal jugular vein Estimated [...] the needle into the IVC. A 6 Kosovan peel-away sheath was placed. A subcutaneous tunnel was created in the left anterior chest wall by blunt dissection. A 6 Kosovan dual- lumen tunneled central line was brought [...] TO: ABHIJIT YODER MD GUIDANCE FOR VASCULAR QNRYA8472-85-75 15:49:00 [place] [address] Patient Name: MANJIT LUO MR #: [id number] : 1980 Age/Sex: 38/M Req #: [id number] Adm Physician: ABHIJIT YODER MD Ordered by: FAIZA DOWNEY Report #: [id number] Location: MED/SURG3 Room/Bed: 288-1 Procedure: [id number] US/US GUIDANCE FOR VASCULAR ACCES Exam Date: [...] remained stable. Physician intra-service time was 30. Silvering Applicator: Gen Anthony MD. Core Setter: None. Approach: Left internal jug ular vein [...] the needle into the IVC. A 6 Kosovan peel-away sheath was placed. A subcutaneous tunnel was created in the left anterior chest wall by blunt dissection. A 6 Kosovan dual- lumen tunneled central line was brought [...] on 06/02/191551 COPY TO: FAIZA DOWNEY Prothrombin Quoj7023-61-86 12:37:00* Test Item Value Reference Range Interpretation Comments Prothrombin Time (test code = 5902-2) 15.4 11.9-14.5 H [facility] TomballProthromb Time International Ratio 2019-06-02 12:37:00* Test Item Value Reference Range Interpretation Comments Prothromb Time International Ratio (test code = 6301-6) 1.15 Oral Anticoagulant Therapy INR Values:1. Low Intensity Therapy 1.5 - 2.02 . Moderate Intensity Therapy 2.0 - 3.03. High Intensity Therapy(1) 2.5 - 3. 54. High Intensity Therapy(2) 3.0 - 4.05. Panic Value INR > 5.0 [facility] TomballProthrombin Prra4043-14-43 12:37:00* Test Item Value Reference Range Interpretation Comments Prothrombin Time (test code = 5902-2) 15.4 11.9-14.5 H [facility] TomballProthromb Time International Ratio 2019-06-02 12:37:00* Test Item Value Reference Range Interpretation Comments Prothromb Time International Ratio (test code = 6301-6) 1.15 Oral Anticoagulant Therapy INR Values:1. Low Intensity Therapy 1.5 - 2.02 . Moderate Intensity Therapy 2.0 - 3.03. High Intensity Therapy(1) 2.5 - 3. 54. High Intensity Therapy(2) 3.0 - 4.05. Panic Value INR > 5.0 [facility] TomballProthrombin time (PT) in platelet poor plasma by coagulation hlbis1724-44-54 12:20:00* Test Item Value Reference Range Interpretation Comments Prothrombin Time (test code = 5902-2) 15.4 11.9-14.5 [facility] TomballINR in Platelet poor plasma by Coagulation gpsre1264-23-02 12:20:00* Test Item Value Reference Range Interpretation Comments Prothromb Time International Ratio (test code = 6301-6) 1.15 Oral Anticoagulant Therapy INR Values:1. Low Intensity Therapy 1.5 - 2.02 . Moderate Intensity Therapy 2.0 - 3.03. High Intensity Therapy(1) 2.5 - 3. 54. High Intensity Therapy(2) 3.0 - 4.05. Panic Value INR > 5.0 [facility] TomballHepatitis B Surface Rycttxb1418-61-45 08:56:00* Test Item Value Reference Range Interpretation Comments Hepatitis B Surface Antigen (test code = 5196-1) Negative Negat stuart Performed at: - Lab[address] [id number] Director: Doc Bartlett MD, Phone: [phone] Houston Healthcare TomballHepatitis B Surface Swslwza3381-41-80 08:56:00* Test Item Value Reference Range Interpretation Comments Hepatitis B Surface Antigen (test code = 5196-1) Negative Negat stuart Performed at: [facility] [address] [id number] Director: Doc Bartlett MD, Phone: [phone] [facility] Healthcare TomballBlood Ctbhhcz5641-68-83 01:59:00* Test Item Value Reference Range Interpretation Comments Blood Culture (test code = 51780518) NO GROWTH AFTER 72 HOURS [facility]rum or plasma hepatitis B virus surface antigen detection by opwtundvzrt5590-48-32 14:15:00* Test Item Value Reference Range Interpretation Comments Hepatitis B Surface Antigen (test code = 5196-1) Negative Negat stuart Performed at: - LabCo[address] [id number] Director: Doc Bartlett MD, Phone: [phone] Medical Centererum or plasma hepatitis B virus surface antigen detection by immunoassay 2019-06-01 14:15:00* Test Item Value Reference Range Interpretation Comments Hepatitis B Surface Antigen (test code = 5196-1) Negative Negat stuart Performed at: [facility] [address] [id number] Director: Doc Bartlett MD, Phone: [phone] Medical Centerodium Gowmf6459-12-30 07:00:00* Test Item Value Reference Range Interpretation Comments Sodium Level (test code = 2951-2) 136 136-145 [facility] TomballPotassium Bkfmf7070-86-68 07:00:00* Test Item Value Reference Range Interpretation Comments Potassium Level (test code = 2823-3) 5.2 3.5-5.1 H [facility] TomballChloride Xfhvj8270-69-57 07:00:00* Test Item Value Reference Range Interpretation Comments Chloride Level (test code = 2075-0) 109 98-107 H [facility] TomballCarbon Dioxide Rghsc3526-46-62 07:00:00* Test Item Value Reference Range Interpretation Comments Carbon Dioxide Level (test code = 2028-9) 20 22-29 L [facility] TomballAnion Puy6959-41-99 07:00:00* Test Item Value Reference Range Interpretation Comments Anion Gap (test code = 77809-7) 12.2 8-16 [facility] TomballBlood Urea Enhckxje7391-49-59 07:00:00* Test Item Value Reference Range Interpretation Comments Blood Urea Nitrogen (test code = 3094-0) 59 7-26 H [facility] TomballCreatinine2020-04-08 07:00:00* Test Item Value Reference Range Interpretation Comments Creatinine (test code = 2160-0) 5.91 0.72-1.25 H [facility] TomballBUN/Creatinine Ptcie3693-26-69 07:00:00* Test Item Value Reference Range Interpretation Comments BUN/Creatinine Ratio (test code = 3097-3) 10 6-25 [facility] TomballEstimat Glomerular Filtration Rate 2019-06-01 07:00:00* Test Item Value Reference Range Interpretation Comments Estimat Glomerular Filtration Rate (test code = 309959602) 11 >60 L Ranges were taken from the National Kidney Disease Education Program and the [facility] literature.Reference ranges:60 or greater: Uygytz34-57 ( for 3 consecutive months): Chronic kidney disease 15 or less: Kidney failureHCA Houston Healthcare TomballGlucose Bkloy8737-69-47 07:00:00* Test Item Value Reference Range Interpretation Comments Glucose Level (test code = ZMM3120) 130 74-118 H [facility] TomballCalcium Sukou7543-96-83 07:00:00* Test Item Value Reference Range Interpretation Comments Calcium Level (test code = 56737-3) 7.2 8.4-10.2 L [facility] TomballPhosphorus Liuuu4968-81-48 07:00:00* Test Item Value Reference Range Interpretation Comments Phosphorus Level (test code = YCB0310) 5.1 2.3-4.7 H [facility] TomballMagnesium Plrxh0368-33-49 07:00:00* Test Item Value Reference Range Interpretation Comments Magnesium Level (test code = 52778-5) 1.7 1.3-2.1 [facility] TomballPhosphorus Soygz1799-91-10 07:00:00* Test Item Value Reference Range Interpretation Comments Phosphorus Level (test code = KIR0960) 5.1 2.3-4.7 H [facility] TomballMagnesium Vmzyn9862-55-20 07:00:00* Test Item Value Reference Range Interpretation Comments Magnesium Level (test code = 99916-0) 1.7 1.3-2.1 [facility] TomballWhite Blood Tdmeo2130-28-64 06:30:00* Test Item Value Reference Range Interpretation Comments White Blood Count (test code = 6690-2) 3.49 4.8-10.8 L [facility] TomballRed Blood Ruxau9780-16-20 06:30:00* Test Item Value Reference Range Interpretation Comments Red Blood Count (test code = 789-8) 3.62 4.3-5.7 L [facility] TomballHemoglobin2020-04-08 06:30:00* Test Item Value Reference Range Interpretation Comments Hemoglobin (test code = 33632-5) 9.3 14.0-18.0 L [facility] TomballHematocrit2020-04-08 06:30:00* Test Item Value Reference Range Interpretation Comments Hematocrit (test code = 4544-3) 29.9 38.2-49.6 L [facility] [facility]ballMean Corpuscular Huaufc3005-48-81 06:30:00* Test Item Value Reference Range Interpretation Comments Mean Corpuscular Volume (test code = 787-2) 82.6 81-99 [facility] Corpuscular Ewurcenact6498-95-49 06:30:00* Test Item Value Reference Range Interpretation Comments Mean Corpuscular Hemoglobin (test code = 785-6) 25.7 28-32 L [facility] Corpuscular Hemoglobin Concent 2019-06-01 06:30:00* Test Item Value Reference Range Interpretation Comments Mean Corpuscular Hemoglobin Concent (test code = 786-4) 31.1 31-35 [facility]ballRed Cell Distribution Mgnfs2381-03-52 06:30:00* Test Item Value Reference Range Interpretation Comments Red Cell Distribution Width (test code = 59629-0) 15.4 11.7 -14.4 H [facility] TomballPlatelet Sjmsk4339-35-24 06:30:00* Test Item Value Reference Range Interpretation Comments Platelet Count (test code = 777-3) 118 140-360 L [facility] TomballNeutrophils (%) (Auto)2019-06-01 06:30:00 * Test Item Value Reference Range Interpretation Comments Neutrophils (%) (Auto) (test code = 81384-4) 70.7 38.7-80.0 [facility] TomballLymphocytes (%) (Auto)2019-06-01 06:30:00 * Test Item Value Reference Range Interpretation Comments Lymphocytes (%) (Auto) (test code = 736-9) 14.6 18.0-39.1 L [facility] TomballMonocytes (%) (Auto)2019-06-01 06:30:00* Test Item Value Reference Range Interpretation Comments Monocytes (%) (Auto) (test code = 5905-5) 8.9 4.4-11.3 [facility]ballEosinophils (%) (Auto)2019-06-01 06:30:00 * Test Item Value Reference Range Interpretation Comments Eosinophils (%) (Auto) (test code = 713-8) 4.0 0.0-6.0 [facility]ballBasophils (%) (Auto)2019-06-01 06:30:00* Test Item Value Reference Range Interpretation Comments Basophils (%) (Auto) (test code = 706-2) 0.9 0.0-1.0 [facility] TomballIM GRANULOCYTES %2019-06-01 06:30:00* Test Item Value Reference Range Interpretation Comments IM GRANULOCYTES % (test code = IM GRANULOCYTES %) 0.9 0.0- 1.0 [facility] TomballNeutrophils # (Auto)2019-06-01 06:30:00* Test Item Value Reference Range Interpretation Comments Neutrophils # (Auto) (test code = 751-8) 2.5 2.1-6.9 [facility] TomballLymphocytes # (Auto)2019-06-01 06:30:00* Test Item Value Reference Range Interpretation Comments Lymphocytes # (Auto) (test code = 35878-0) 0.5 1.0-3.2 L [facility] TomballMonocytes # (Auto)2019-06-01 06:30:00* Test Item Value Reference Range Interpretation Comments Monocytes # (Auto) (test code = 742-7) 0.3 0.2-0.8 [facility]ballEosinophils # (Auto)2019-06-01 06:30:00* Test Item Value Reference Range Interpretation Comments Eosinophils # (Auto) (test code = 711-2) 0.1 0.0-0.4 [facility]ballBasophils # (Auto)2019-06-01 06:30:00* Test Item Value Reference Range Interpretation Comments Basophils # (Auto) (test code = 704-7) 0.0 0.0-0.1 [facility] TomballAbsolute Immature Granulocyte (auto 2019-06-01 06:30:00* Test Item Value Reference Range Interpretation Comments Absolute Immature Granulocyte (auto (shin t code = Absolute Immature Granulocyte (auto) 0.03 0-0.1 [facility] TomballPhosphorus xhxxowwflic4444-25-24 06:00:00 * Test Item Value Reference Range Interpretation Comments Phosphorus Level (test code = VEP9863) 5.1 2.3-4.7 [facility]ballTotal Fjioyzaop7234-88-13 07:19:00* Test Item Value Reference Range Interpretation Comments Total Bilirubin (test code = 1975-2) 0.5 0.2-1.2 [facility] TomballAspartate Amino Transf (AST/SGOT) 2019-05-31 07:19:00* Test Item Value Reference Range Interpretation Comments Aspartate Amino Transf (AST/SGOT) (test code = Aspartate Amino Transf (AST/SGOT)) 182 5-34 H [facility] TomballAlanine Aminotransferase (ALT/SGPT) 2019-05-31 07:19:00* Test Item Value Reference Range Interpretation Comments Alanine Aminotransferase (ALT/SGPT) (test code = 1742-6) 121 0-55 H [facility]ballTotal Kjkgwdl5390-54-59 07:19:00* Test Item Value Reference Range Interpretation Comments Total Protein (test code = 2885-2) 7.2 6.5-8.1 [facility] TomballAlbumin2020-04-07 07:19:00* Test Item Value Reference Range Interpretation Comments Albumin (test code = 1751-7) 2.3 3.5-5.0 L [facility] TomballGlobulin2020-04-07 07:19:00* Test Item Value Reference Range Interpretation Comments Globulin (test code = 30490-6) 4.9 2.3-3.5 H [facility] TomballAlbumin/Globulin Gsjgw2719-56-86 07:19:00 * Test Item Value Reference Range Interpretation Comments Albumin/Globulin Ratio (test code = 1759-0) 0.5 0.8-2.0 L [facility] TomballAlkaline Mfislkzdatw8318-53-89 07:19:00* Test Item Value Reference Range Interpretation Comments Alkaline Phosphatase (test code = 6768-6) 412 40-150 H [facility] TomballUrine ZBP6333-92-35 02:21:00* Test Item Value Reference Range Interpretation Comments Urine WBC (test code = 5821-4) >50 0-5 H [facility] TomballUrine ZHX1655-20-94 02:21:00* Test Item Value Reference Range Interpretation Comments Urine RBC (test code = 46302-9) 21-50 0-5 H [facility] TomballUrine Fzotjunu6447-89-27 02:21:00* Test Item Value Reference Range Interpretation Comments Urine Bacteria (test code = 25369-9) MANY NONE H [facility] TomballUrine Epithelial Bzfii0876-42-02 02:21:00 * Test Item Value Reference Range Interpretation Comments Urine Epithelial Cells (test code = 50157-1) FEW NONE [facility]ballU[facility] Klwbe2968-19-27 02:21:00* Test Item Value Reference Range Interpretation Comments Urine Mucus (test code = 8247-9) FEW RARE H [facility]ballUrine Aayiu5514-57-30 02:21:00* Test Item Value Reference Range Interpretation Comments Urine Yeast (test code = 81368-3) MANY NONE H [facility]ballU[facility] Qwdfn8583-79-02 02:21:00* Test Item Value Reference Range Interpretation Comments Urine Mucus (test code = 8247-9) FEW RARE H [facility] Whytk9503-91-58 02:21:00* Test Item Value Reference Range Interpretation Comments Urine Yeast (test code = 13032-0) MANY NONE H [facility]ballUrine Dkrsx8232-22-74 02:12:00* Test Item Value Reference Range Interpretation Comments Urine Color (test code = 5778-6) YELLOW YELLOW [facility]ballU[facility] Ubafggg6351-84-72 02:12:00* Test Item Value Reference Range Interpretation Comments Urine Clarity (test code = 66435-5) CLOUDY CLEAR [facility] Specific Damfpwt5515-45-13 02:12:00 * Test Item Value Reference Range Interpretation Comments Urine Specific [place] (test code = 5811-5) 1.025 1.010-1.02 5 [facility] kH0375-47-01 02:12:00* Test Item Value Reference Range Interpretation Comments Urine pH (test code = 70808-9) 5.5 5-7 [facility] Leukocyte Vhukwpso7311-87-27 02:12:00* Test Item Value Reference Range Interpretation Comments Urine Leukocyte Esterase (test code = 5799-2) 2+ NEGATIVE [facility] Nqyainl0694-75-57 02:12:00* Test Item Value Reference Range Interpretation Comments Urine Nitrite (test code = 04068-8) POSITIVE NEGATIVE [facility] Kfvttlq7128-90-37 02:12:00* Test Item Value Reference Range Interpretation Comments Urine Protein (test code = 5804-0) >=300 NEGATIVE [facility]ballUrine Glucose (UA)2019-05-30 02:12:00* Test Item Value Reference Range Interpretation Comments Urine Glucose (UA) (test code = 2349-9) 1+ NEGATIVE [facility] Welbknb2307-95-14 02:12:00* Test Item Value Reference Range Interpretation Comments Urine Ketones (test code = 55130-1) NEGATIVE NEGATIVE [facility] Dvjdfuakhdve2831-03-86 02:12:00* Test Item Value Reference Range Interpretation Comments Urine Urobilinogen (test code = 53987-7) 0.2 0.2-1 [facility]ballU[facility] Mapjpzvol1533-50-51 02:12:00* Test Item Value Reference Range Interpretation Comments Urine Bilirubin (test code = 1978-6) NEGATIVE NEGATIVE [facility]ballU[facility] Wureo7743-90-49 02:12:00* Test Item Value Reference Range Interpretation Comments Urine Blood (test code = 48258-9) 4+ NEGATIVE H [facility] TomballYeast detection in urine sediment by light rumbpfsdnv2387-77-28 01:50:00* Test Item Value Reference Range Interpretation Comments Urine Yeast (test code = 87267-1) MANY NONE [facility] TomballYeast detection in urine sediment by light snntswjnut0831-42-28 01:50:00* Test Item Value Reference Range Interpretation Comments Urine Yeast (test code = 45694-9) MANY NONE [facility] TomballCHEST SINGLE (PORTABLE)2019-05-30 01:18:00 [facility] [address] [place] [address] Patient Name: MANJIT LUO MR #: [id number] : 1980 Age/Sex: 38/M Req #: [id number] Adm Physician: Ordered by: MARIELLE MARSH MD Report #: [id number] Location: ER Room/Bed: Procedure: [id number] DX/CHEST SINGLE (PORTABLE) Exam Date: 05/30/19 Exam Time: 0050 REPORT STATUS: Sign ed EXAMINATION: CHEST SINGLE (PORTABLE) COMPARISON: Chest x-ray 04/23 INDICATION: fever [id number] Y DISCUSSION: Frontal view of the [...] COPY TO: BAYRON MARSH MD Lactic Acid Zkrvo6260-03-30 01:08:00* Test Item Value Reference Range Interpretation Comments Lactic Acid Level (test code = Lactic Acid Level) 1.0 0.5- 2.0 [facility] TomballLactic Acid Xticl3689-31-22 01:08:00* Test Item Value Reference Range Interpretation Comments Lactic Acid Level (test code = Lactic Acid Level) 1.0 0.5- 2.0 [facility]ballCT ABDOMEN/PELVIS TO4113-05-93 01:06:00 [place] [address] Patient Name: MANJIT LUO MR #: [id number] : 1980 Age/Sex: 38/M Req #: [id number] Adm Physician: Ordered by: MARIELLE MARSH MD Report #: [id number] Location: ER Room/Bed: Procedure: [id number] CT/CT ABDOMEN/PELVIS [...] MD Fluoroscopic procedure less than one hour qikegzjh7158-85-96 00:23:00* Test Item Value Reference Range Interpretation Comments Lactic Acid Level (test code = Lactic Acid Level) 1.0 0.5- 2.0 [facility] 1 & 2 gjowpfoz7290-31-81 15:06:51* Test Item Value Reference Range Interpretation Comments Case number (test code = 5111625) [id number] C1Q class 1 & 2 antibody (test code = 2148592) See emilee mckeno below for PDF Lab Report [facility] Uszsaha1895-00-50 16:03:00* Test Item Value Reference Range Interpretation Comments Bedside Glucose (test code = 58309-8) 129 70-120 H Meter ID: [id number] [facility] DallasAB[facility] (KUB) 2019-05-20 11:54:00 [place] [address] Patient Name: MANJIT LUO MR #: [id number] : 1980 Age/Sex: 38/M Req #: [id number] Adm Physician: ABHIJIT YODER MD Ordered by: ABHIJIT YODER MD Report #: [id number] Location: MED/SURG2 Room/Bed: [facility] Procedure: [id number] DX/AB KHAN (KU) Exam Date: 05/20/19 Exam [...] 1157 Transcribe d By: TIFFANY on 05/20/19 0317 COPY TO: ABHIJIT YODER MD Sodium Idvmi3124-73-59 05:37:00* Test Item Value Reference Range Interpretation Comments Sodium Level (test code = 2951-2) 137 136-145 [facility] TomballPotassium Ijknw2231-59-72 05:37:00* Test Item Value Reference Range Interpretation Comments Potassium Level (test code = 2823-3) 4.7 3.5-5.1 [facility] TomballChloride Tbimk6691-35-23 05:37:00* Test Item Value Reference Range Interpretation Comments Chloride Level (test code = 2075-0) 103 98-107 [facility] TomballCarbon Dioxide Obawo7859-40-10 05:37:00* Test Item Value Reference Range Interpretation Comments Carbon Dioxide Level (test code = 2028-9) 27 22-29 [facility] TomballAnion Spx5410-37-35 05:37:00* Test Item Value Reference Range Interpretation Comments Anion Gap (test code = 24933-0) 11.7 8-16 [facility] TomballBlood Urea Pcsrncjy2477-30-48 05:37:00* Test Item Value Reference Range Interpretation Comments Blood Urea Nitrogen (test code = 3094-0) 23 - [facility] TomballCreatinine2020-03-26 05:37:00* Test Item Value Reference Range Interpretation Comments Creatinine (test code = 2160-0) 3.50 0.72-1.25 H [facility] TomballBUN/Creatinine Illug3078-92-33 05:37:00* Test Item Value Reference Range Interpretation Comments BUN/Creatinine Ratio (test code = 3097-3) 7 08-17 [facility] TomballEstimat Glomerular Filtration Rate 2019-05-19 05:37:00* Test Item Value Reference Range Interpretation Comments Estimat Glomerular Filtration Rate (test code = 774540809) 20 >60 L Ranges were taken from the National Kidney Disease Education Program and the [facility] Kid[facility] Foundation literature.Reference ranges:60 or greater: Aqlqyq58-00 ( for 3 consecutive months): Chronic kidney disease 15 or less: Kidney failureHCA [facility] Healthcare TomballGlucose Jqjhr3835-84-65 05:37:00* Test Item Value Reference Range Interpretation Comments Glucose Level (test code = TKS6177) 130 74-118 H [facility] TomballCalcium Xtgcm9388-70-29 05:37:00* Test Item Value Reference Range Interpretation Comments Calcium Level (test code = 89384-8) 8.2 8.4-10.2 L [facility] TomballWhite Blood Upgmv2297-28-62 09:35:00* Test Item Value Reference Range Interpretation Comments White Blood Count (test code = 6690-2) 4.21 4.8-10.8 L [facility] TomballRed Blood Sfdek4379-24-75 09:35:00* Test Item Value Reference Range Interpretation Comments Red Blood Count (test code = 789-8) 3.61 4.3-5.7 L [facility] TomballHemoglobin2020-03-25 09:35:00* Test Item Value Reference Range Interpretation Comments Hemoglobin (test code = 47021-3) 9.3 14.0-18.0 L [facility] TomballHematocrit2020-03-25 09:35:00* Test Item Value Reference Range Interpretation Comments Hematocrit (test code = 4544-3) 30.1 38.2-49.6 L [facility]ballMean Corpuscular Mebryp2674-94-11 09:35:00* Test Item Value Reference Range Interpretation Comments Mean Corpuscular Volume (test code = 787-2) 83.4 81-99 [facility]Mean Corpuscular Edouaxlplk5267-43-64 09:35:00* Test Item Value Reference Range Interpretation Comments Mean Corpuscular Hemoglobin (test code = 785-6) 25.8 28-32 L [facility] Corpuscular Hemoglobin Concent 2019-05-18 09:35:00* Test Item Value Reference Range Interpretation Comments Mean Corpuscular Hemoglobin Concent (test code = 786-4) 30.9 31-35 L [facility] TomballRed Cell Distribution Bbojt3987-97-42 09:35:00* Test Item Value Reference Range Interpretation Comments Red Cell Distribution Width (test code = 98415-4) 14.6 11.7 -14.4 H [facility] TomballPlatelet Hkswj4235-87-26 09:35:00* Test Item Value Reference Range Interpretation Comments Platelet Count (test code = 777-3) 133 140-360 L [facility] TomballNeutrophils (%) (Auto)2019-05-18 09:35:00 * Test Item Value Reference Range Interpretation Comments Neutrophils (%) (Auto) (test code = 62907-3) 59.3 38.7-80.0 [facility] TomballLymphocytes (%) (Auto)2019-05-18 09:35:00 * Test Item Value Reference Range Interpretation Comments Lymphocytes (%) (Auto) (test code = 736-9) 29.5 18.0-39.1 [facility] TomballMonocytes (%) (Auto)2019-05-18 09:35:00* Test Item Value Reference Range Interpretation Comments Monocytes (%) (Auto) (test code = 5905-5) 5.7 4.4-11.3 [facility]ballEosinophils (%) (Auto)2019-05-18 09:35:00 * Test Item Value Reference Range Interpretation Comments Eosinophils (%) (Auto) (test code = 713-8) 4.5 0.0-6.0 [facility]ballBasophils (%) (Auto)2019-05-18 09:35:00* Test Item Value Reference Range Interpretation Comments Basophils (%) (Auto) (test code = 706-2) 0.5 0.0-1.0 [facility] TomballIM GRANULOCYTES %2019-05-18 09:35:00* Test Item Value Reference Range Interpretation Comments IM GRANULOCYTES % (test code = IM GRANULOCYTES %) 0.5 0.0- 1.0 [facility] TomballNeutrophils # (Auto)2019-05-18 09:35:00* Test Item Value Reference Range Interpretation Comments Neutrophils # (Auto) (test code = 751-8) 2.5 2.1-6.9 [facility] TomballLymphocytes # (Auto)2019-05-18 09:35:00* Test Item Value Reference Range Interpretation Comments Lymphocytes # (Auto) (test code = 73967-0) 1.2 1.0-3.2 [facility]ballMonocytes # (Auto)2019-05-18 09:35:00* Test Item Value Reference Range Interpretation Comments Monocytes # (Auto) (test code = 742-7) 0.2 0.2-0.8 [facility]ballEosinophils # (Auto)2019-05-18 09:35:00* Test Item Value Reference Range Interpretation Comments Eosinophils # (Auto) (test code = 711-2) 0.2 0.0-0.4 [facility]ballBasophils # (Auto)2019-05-18 09:35:00* Test Item Value Reference Range Interpretation Comments Basophils # (Auto) (test code = 704-7) 0.0 0.0-0.1 [facility] TomballAbsolute Immature Granulocyte (auto 2019-05-18 09:35:00* Test Item Value Reference Range Interpretation Comments Absolute Immature Granulocyte (auto (shin t code = Absolute Immature Granulocyte (auto) 0.02 0-0.1 [facility] zjurf4518-78-19 09:20:50* Test Item Value Reference Range Interpretation Comments SAB interpretation (test code = 5950) Additional antib tripp information: DP1=DPB1*01:01/DPA1*02:62IA7=MXE4*05:01/DPA1*02:03MJ9=MNR9*03:03/DQA1*02:01DR53= is a self-antigen SAB serum ID (test code = 5866) [id number] [facility] serum collection D&T (test code = 5867) 05/03/2019 08:30 AM SAB class I antibody assignment (test code = 5870) Negative SAB cPRA class I (test code = 5868) 0 SAB class II antibody assignment (test code = 5871) DP1,DR10 ,DP5,DR53,DR51,DQ9 SAB cPRA class II (test code = 5869) 74 Case number (test code = 3064483) [id number] Single antigen beads (test code = 4604) See link below for PDF Lab Report [facility] MethodkianaUrine Rdcwgdx9345-67-91 08:02:00* Test Item Value Reference Range Interpretation Comments Urine Culture (test code = 630-4) No Result Data Provided [facility] TomballUrine Sbuutnp2583-22-17 08:02:00* Test Item Value Reference Range Interpretation Comments Urine Culture (test code = 630-4) No Result Data Provided [facility] TomballUrine Cscznas3224-37-33 08:02:00* Test Item Value Reference Range Interpretation Comments Urine Culture (test code = 630-4) No Result Data Provided [facility] TomballABDOMEN-1VIEW (KUB)2019-05-16 13:43:00 [place] [address] Patient Name: MANJIT LUO MR #: [id number] : 1980 Age/Sex: 38/M Req #: [id number] Adm Physician: ABHIJIT YODER MD Ordered by: FAIZA DOWNEY Report #: [id number] Location: MED/SURG2 Room/Bed: [facility] Procedure: [id number] DX/ABDOMEN-1VIEW (KUB) Exam Date: 05/16/19 Exam Cm [...] 134 5 COPY TO: FAIZA DOWNEY IR LUKUTKY0007-82-38 13:41:00 [place] [address] Patient Name: MANJIT LUO MR #: [id number] : 1980 Age/Sex: 38/M [facility] #: [id number] [facility] Physician: ABHIJIT YODER MD Ordered by: FAIZA DOWNEY Report #: [id number] Location: MED/SURG2 Room/Bed: [facility] Procedure: [id number] DX/IR CONSULT Exam Date: Exam Time: REPORT STATUS: Signed Tunneled dialysis alonso ter insertion, 05/16/2019. History: Renal failure. Modality: Sonography and fluoroscopy. Sedation: Genny sed 1.0 mg and fentanyl 50 mcg was given intravenously for conscious sedation. Vital signs were monitored throughout the procedure by a nurse, and remained stable. Physician intra-service time was 15 its. Silvering Applicator: Saloni. Core Setter: None. Approach: Right internal jugular vein Estimated [...] needle into the right atrium. A 4 Kosovan micropuncture sheath was placed. A subcutaneous tunnel was created in the right anterior chest wall by blunt dissection. A 19 cm 14.5 Kosovan dialysis catheter was brought through the tunnel. [...] COPY TO: FAIZA DOWNEY GUIDANCE FOR VASCULAR VWLTP3830-07-45 13:41:00 [place] [address] Patient Name: MANJIT LUO MR #: [id number] : 1980 Age/Sex: 38/M Req #: [id number] Adm Physician: ABHIJIT YODER MD Ordered by: FAIZA DOWNEY Report #: [id number] Location: MED/SURG2 Room/Bed: [facility] Procedure: [id number] US/US GUIDANCE FOR VASCULAR ACCES Exam Date: 05/16/19 Exam Time: 1225 REPORT STATUS: S igned Tunneled dialysis catheter insertion, 05/16/2019. History: Renal failure. Modality: Sonography and fluoroscopy. Sedation: Versed 1.0 mg and fentanyl 50 mcg was given intravenously for conscious sedation. Vital signs were monitored throughout the procedure by a nurse, and remained stable. Physician intra-service time was 15 its. Silvering Applicator: Saloni. Core Setter: None. Approach: Right internal jugular vein Estimated [...] into t he right atrium. A 4 Kosovan micropuncture sheath was placed. A subcutaneous t unnel was created in the right anterior chest wall by blunt dissection. A 19 cm 14.5 Kosovan dialysis catheter was brought through the tunnel. [...] TO: FAIZA DOWNEY TUNNELLED CVC INSERT W/O YNVF0236-71-92 13:41:00 [place] [address] Patient Name: MANJIT LUO MR #: [id number] : 1980 Age/Sex: 38/M Req #: [id number] Adm Physician: ABHIJIT YODER MD Ordered by: FAIZA DOWNEY Report #: [id number] Location: MED/SURG2 Room/Bed: [facility] Procedure: [id number] IR/TUNNELLED CVC INSERT W/O PORT Exam Date: Exam T sage: REPORT STATUS: Signed Tunn eled dialysis catheter insertion, 05/16/2019. History: Renal failure. Modality: Sonography and fluoroscopy. Sedation: Versed 1.0 mg and fentanyl 50 mcg was given intravenously for conscious sedation. Vital signs were monitored throughout the procedure by a nurse, and remained stable. Physician intra-service time was 15 its. Silvering Applicator: Saloni. Core Setter: None. Approach: Right internal jugular vein Estimated [...] into t he right atrium. A 4 Kosovan micropuncture sheath was placed. A subcutaneous t unnel was created in the right anterior chest wall by blunt dissection. A 19 cm 14.5 Kosovan dialysis catheter was brought through the tunnel. [...] 1:43 PM Dictated By: RONNIE VERDE MD 1344 Transcr ibed By: TIFFANY on 05/16/19 134 COPY TO: FAIZA DOWNEY Prothrombin Ogcs3773-28-03 10:37:00* Test Item Value Reference Range Interpretation Comments Prothrombin Time (test code = 5902-2) 16.2 11.9-14.5 H [facility] TomballProthromb Time International Ratio 2019-05-16 10:37:00* Test Item Value Reference Range Interpretation Comments Prothromb Time International Ratio (test code = 6301-6) 1.22 Oral Anticoagulant Therapy INR Values:1. Low Intensity Therapy 1.5 - 2.02 . Moderate Intensity Therapy 2.0 - 3.03. High Intensity Therapy(1) 2.5 - 3. 54. High Intensity Therapy(2) 3.0 - 4.05. Panic Value INR > 5.0 [facility]ballTotal Pxwwugsik4953-65-72 08:57:00* Test Item Value Reference Range Interpretation Comments Total Bilirubin (test code = 1975-2) 0.2 0.2-1.2 [facility] TomballDirect Lbuluvfdb9044-01-83 08:57:00* Test Item Value Reference Range Interpretation Comments Direct Bilirubin (test code = 81624-5) 0.1 0.0-0.5 [facility] TomballAspartate Amino Transf (AST/SGOT) 2019-05-16 08:57:00* Test Item Value Reference Range Interpretation Comments Aspartate Amino Transf (AST/SGOT) (test code = Aspartate Amino Transf (AST/SGOT)) 40 5-34 H [facility] TomballAlanine Aminotransferase (ALT/SGPT) 2019-05-16 08:57:00* Test Item Value Reference Range Interpretation Comments Alanine Aminotransferase (ALT/SGPT) (test code = 1742-6) 47 0-55 [facility] TomballTotal Iszfpui9224-82-31 08:57:00* Test Item Value Reference Range Interpretation Comments Total Protein (test code = 2885-2) 8.5 6.5-8.1 H [facility] TomballAlbumin2020-03-23 08:57:00* Test Item Value Reference Range Interpretation Comments Albumin (test code = 1751-7) 2.5 3.5-5.0 L [facility] TomballAlkaline Oeoyuxdipke6861-79-82 08:57:00* Test Item Value Reference Range Interpretation Comments Alkaline Phosphatase (test code = 6768-6) 437 40-150 H [facility] Okkqwujub3303-07-94 08:57:00* Test Item Value Reference Range Interpretation Comments Direct Bilirubin (test code = 25993-4) 0.1 0.0-0.5 [facility] Gzenlqcuu9669-14-36 08:57:00* Test Item Value Reference Range Interpretation Comments Direct Bilirubin (test code = 74916-3) 0.1 0.0-0.5 [facility] conjugated bilirubin measurement (mass/volume)2019-05-16 05:00:00* Test Item Value Reference Range Interpretation Comments Direct Bilirubin (test code = 01911-4) 0.1 0.0-0.5 [facility] plasma conjugated bilirubin measurement (mass/volume)2019-05-16 05:00:00* Test Item Value Reference Range Interpretation Comments Direct Bilirubin (test code = 57145-7) 0.1 0.0-0.5 [facility]ballMiscellaneous referral vqle8298-48-31 12:16:23* Test Item Value Reference Range Interpretation Comments Misc test name (test code = 2566) PTNT BARABOO Misc test result (test code = 1730) SEE NOTE Report Status: FINAL Prothrombin [id number] Mutation, B PTNT Interpretation This individual DOES NOT have the Prothrombin H10231J mutation. Although the Prothrombin I27029F mutation is absent, the individual may have other genetic and environmental risk factors for thrombosis. Consider genetic consultation and counseling of potentially affected family members regarding laboratory testing. ADDITIONAL INFORMATION This test is a direct mutation analysis using PCR amplification, signal generation and release by cleavage of sequence specific alleles ([employer], [employer], [place], [place])............... ..............................................Prothrombin L49144Y Mutation, B Negative Reference Value: Negative............................................................PTNT Reviewed By DARRYL Oneil - - - - - - - - - - - - - - - - - - - - - - - - - - - - - -Laboratory Notes:This test has been modified from the maxillofacial surgeon'sinstructions. Its performance characteristics weredetermined by [facility] in a manner consistent with CLIArequirements. This test has not been cleared or approved bythe U.S. Food and Drug Administration.+ +: PERFORMING SITE LEGEND :+ +: : [facility] :: : [address] [place] [address] :+ + INGACIO (test code = IGNACIO) Prothrombin [id number] Mutation [facility] Test ID: PTNTSource: Whole Blood [facility] MethodistHepatitis B Surface Antibody, Jtisq6242-34-90 08:00:00* Test Item Value Reference Range Interpretation Comments Hepatitis B Surface Antibody, Quant (test code = 5194-6) <3.1 Immunity>9.9 L Status of Immunity Anti-HBs Level Inconsistent with Immunity 0.0 - 9.9Consistent with Immunity >9.9[facility] B Surface Qfxykea6130-60-32 08:00:00* Test Item Value Reference Range Interpretation Comments Hepatitis B Surface Antigen (test code = 5196-1) Negative [facility]at [facility] B Core IgM Tonwxkzc1531-25-46 08:00:00* Test Item Value Reference Range Interpretation Comments Hepatitis B Core IgM Antibody (test code = 59526-8) Negative Ne gative Performed at: [facility] [address] [id number] Director: Doc Bartlett MD, Phone: [phone]'s Medical Center [facility] B Surface Antibody, Auxba7499-80-68 08:00:00* Test Item Value Reference Range Interpretation Comments Hepatitis B Surface Antibody, Quant (test code = 5194-6) <3.1 Immunity>9.9 L Status of Immunity Anti-HBs Level Inconsistent with Immunity 0.0 - 9.9Consistent with Immunity >9.9[facility] B Core IgM Oqufcyfx8125-68-44 08:00:00* Test Item Value Reference Range Interpretation Comments Hepatitis B Core IgM Antibody (test code = 44649-8) Negative Ne gative Performed at: [facility] [id number] Director: Doc Bartlett MD, Phone: [phone] [facility] Healthcare TomballHerockcastle regional hospitaltis B Surface Antibody, Sqrhd9820-20-09 08:00:00* Test Item Value Reference Range Interpretation Comments Hepatitis B Surface Antibody, Quant (test code = 5194-6) <3.1 Immunity>9.9 L Status of Immunity Anti-HBs Level Inconsistent with Immunity 0.0 - 9.9Consistent with Immunity >9.9[facility] Core IgM Ylwliznr8088-93-53 08:00:00* Test Item Value Reference Range Interpretation Comments Hepatitis B Core IgM Antibody (test code = 04944-3) Negative Ne gative Performed at: [facility] [id number] Director: Doc Bartlett MD, Phone: [phone] Medical Centererum hepatitis B virus surface antibody assay by radioimmunoassay (units/volume)2019-05-12 17:30:00* Test Item Value Reference Range Interpretation Comments Hepatitis B Surface Antibody, Quant (test code = 5194-6) <3.1 Immunity>9.9 Status of Immunity Anti-HBs Level Inconsistent with Immunity 0.0 - 9.9Consistent with Immunity >9.9[facility] Dallaserum or plasma hepatitis B virus core IgM antibody detection by ktzmgqcwxgx7333-92-58 17:30:00* Test Item Value Reference Range Interpretation Comments Hepatitis B Core IgM Antibody (test code = 62814-5) Negative Ne gative Performed at: [facility] [address] [id number] Director: Doc Bartlett MD, Phone: [phone] Medical Centererum hepatitis B virus surface antibody assay by radioimmunoassay (units/volume)2019-05-12 17:30:00* Test Item Value Reference Range Interpretation Comments Hepatitis B Surface Antibody, Quant (test code = 5194-6) <3.1 Immunity>9.9 Status of Immunity Anti-HBs Level Inconsistent with Immunity 0.0 - 9.9Consistent with Immunity >9.9[facility] Dallaserum or plasma hepatitis B virus core IgM antibody detection by wupolinujjf0058-64-20 17:30:00* Test Item Value Reference Range Interpretation Comments Hepatitis B Core IgM Antibody (test code = 01866-4) Negative Ne gative Performed at: - [facility] [id number] Director: Doc Bartlett MD, Phone: [phone] [facility] Healthcare TomballGlobulin2020-03-19 05:45:00* Test Item Value Reference Range Interpretation Comments Globulin (test code = 54230-5) 5.5 2.3-3.5 H [facility]ballAlbumin/Globulin Gijhl5027-43-30 05:45:00 * Test Item Value Reference Range Interpretation Comments Albumin/Globulin Ratio (test code = 1759-0) 0.4 0.8-2.0 L [facility]ballBlood Nqdkfpq9358-76-86 19:22:00* Test Item Value Reference Range Interpretation Comments Blood Culture (test code = 54643860) NO GROWTH AFTER 5 DAYS, FINAL REPORT [facility]ballLow resolution full typing by SSO 2019-05-11 10:19:06* Test Item Value Reference Range Interpretation Comments Interpretation (test code = 9905603) Note: HLA typing was performed by PCR-SSO DNA based procedures.Note: The serological phenotype is an interpretation based on molecular typing data. Case number (test code = 4149019) [id number] Low resolution full typing by SSO (test code = 1359) S ee link below for PDF Lab Report [place] WtuofbrsyKnxztppc7481-55-77 06:07:00* Test Item Value Reference Range Interpretation Comments Ferritin (test code = 2276-4) 313.92 21.81-274.66 H [facility]ballFerritin2020-03-18 06:07:00* Test Item Value Reference Range Interpretation Comments Ferritin (test code = 2276-4) 313.92 21.81-274.66 H [facility]ball[facility]ritin2020-03-18 06:07:00* Test Item Value Reference Range Interpretation Comments Ferritin (test code = 2276-4) 313.92 21.81-274.66 H [facility]ballPhosphorus Hwvke5341-29-58 05:50:00* Test Item Value Reference Range Interpretation Comments Phosphorus Level (test code = FIV3258) 6.2 2.3-4.7 H [facility]2020-03-18 05:50:00* Test Item Value Reference Range Interpretation Comments Iron Level (test code = 2498-4) 38 65-175 L [facility]ballTotal Iron Binding Jxwrgftz2368-93-42 05:50:00* Test Item Value Reference Range Interpretation Comments Total Iron Binding Capacity (test code = 2500-7) 165 261-4 78 L [facility] TomballPercent Iron Orzazomwfq8420-67-28 05:50:00* Test Item Value Reference Range Interpretation Comments Percent Iron Saturation (test code = 2502-3) -50 [facility] TomballTransferrin2020-03-18 05:50:00* Test Item Value Reference Range Interpretation Comments Transferrin (test code = 3034-6) 118 174-364 L [facility]2020-03-18 05:50:00* Test Item Value Reference Range Interpretation Comments Iron Level (test code = 2498-4) 38 65-175 L [facility] Iron Binding Esfuqoit2756-55-26 05:50:00* Test Item Value Reference Range Interpretation Comments Total Iron Binding Capacity (test code = 2500-7) 165 261-4 78 L [facility]ballPercent Iron Qksznpwyqw3547-73-19 05:50:00* Test Item Value Reference Range Interpretation Comments Percent Iron Saturation (test code = 2502-3) -50 [facility]ballTransferrin2020-03-18 05:50:00* Test Item Value Reference Range Interpretation Comments Transferrin (test code = 3034-6) 118 174-364 L [facility]2020-03-18 05:50:00* Test Item Value Reference Range Interpretation Comments Iron Level (test code = 2498-4) 38 65-175 L [facility] Iron Binding Wcgzcbci9857-02-82 05:50:00* Test Item Value Reference Range Interpretation Comments Total Iron Binding Capacity (test code = 2500-7) 165 261-4 78 L [facility]ballPercent Iron Sbxrmhqstz3101-67-75 05:50:00* Test Item Value Reference Range Interpretation Comments Percent Iron Saturation (test code = 2502-3) 50 [facility] TomballTransferrin2020-03-18 05:50:00* Test Item Value Reference Range Interpretation Comments Transferrin (test code = 3034-6) 118 174-364 L [facility] or plasma iron measurement (mass/volume)2019-05-11 04:50:00* Test Item Value Reference Range Interpretation Comments Iron Level (test code = 2498-4) 38 65-175 [facility] or plasma iron binding capacity measurement (mass/volume)2019-05-11 04:50:00* Test Item Value Reference Range Interpretation Comments Total Iron Binding Capacity (test code = 2500-7) 165 261-4 78 [facility]rum or plasma iron saturation measurement (mass fraction)2019-05-11 04:50:00* Test Item Value Reference Range Interpretation Comments Percent Iron Saturation (test code = 2502-3) 50 [facility] or plasma transferrin measurement (mass/volume)2019-05-11 04:50:00* Test Item Value Reference Range Interpretation Comments Transferrin (test code = 3034-6) 118 174-364 [facility] or plasma ferritin measurement (mass/volume)2019-05-11 04:50:00* Test Item Value Reference Range Interpretation Comments Ferritin (test code = 2276-4) 313.92 21.81-274.66 [facility] or plasma iron measurement (mass/volume)2019-05-11 04:50:00* Test Item Value Reference Range Interpretation Comments Iron Level (test code = 2498-4) 38 65-175 [facility]rum or plasma iron binding capacity measurement (mass/volume)2019-05-11 04:50:00* Test Item Value Reference Range Interpretation Comments Total Iron Binding Capacity (test code = 2500-7) 165 261-4 78 [facility]ererum or plasma iron saturation measurement (mass fraction)2019-05-11 04:50:00* Test Item Value Reference Range Interpretation Comments Percent Iron Saturation (test code = 2502-3) 23 15-50 [facility] or plasma transferrin measurement (mass/volume)2019-05-11 04:50:00* Test Item Value Reference Range Interpretation Comments Transferrin (test code = 3034-6) 118 174-364 [facility] or plasma ferritin measurement (mass/volume)2019-05-11 04:50:00* Test Item Value Reference Range Interpretation Comments Ferritin (test code = 2276-4) 313.92 21.81-274.66 [facility] TomballBacterial urine earcwev0585-99-82 15:50:00* Test Item Value Reference Range Interpretation Comments Urine Culture (test code = 630-4) YEAST SPECIES [facility]ballUrine Yqxxesa3541-94-77 07:34:00* Test Item Value Reference Range Interpretation Comments Urine Culture (test code = 630-4) No Result Data Provided [facility] TomballHemoglobin A1c Mvuwrmj4810-73-62 20:19:00 * Test Item Value Reference Range Interpretation Comments Hemoglobin A1c Percent (test code = Hemoglobin A1c Percent) 5.2 4.0-7.0 [facility]ballHemoglobin A1c Nhvhfsv4468-82-63 20:19:00 * Test Item Value Reference Range Interpretation Comments Hemoglobin A1c Percent (test code = Hemoglobin A1c Percent) 5.2 4.0-7.0 [facility]ballHemoglobin A1c Wiulltd0554-43-82 20:19:00 * Test Item Value Reference Range Interpretation Comments Hemoglobin A1c Percent (test code = Hemoglobin A1c Percent) 5.2 4.0-7.0 [facility]ballFree Pexokbkvp4441-49-54 19:42:00* Test Item Value Reference Range Interpretation Comments Free Thyroxine (test code = 3024-7) 0.79 0.8-1.8 L [facility] TomballThyroid Stimulating Hormone (TSH) 2019-05-08 19:42:00* Test Item Value Reference Range Interpretation Comments Thyroid Stimulating Hormone (TSH) (test code = 43480-8) 1.669 0.350-4.940 [facility] Tdmbipmdr2806-48-46 19:42:00* Test Item Value Reference Range Interpretation Comments Free Thyroxine (test code = 3024-7) 0.79 0.8-1.8 L [facility] TomballThyroid Stimulating Hormone (TSH) 2019-05-08 19:42:00* Test Item Value Reference Range Interpretation Comments Thyroid Stimulating Hormone (TSH) (test code = 52674-2) 1.669 0.350-4.940 [facility] Bhkiixgiq6846-40-05 19:42:00* Test Item Value Reference Range Interpretation Comments Free Thyroxine (test code = 3024-7) 0.79 0.8-1.8 L [facility] TomballThyroid Stimulating Hormone (TSH) 2019-05-08 19:42:00* Test Item Value Reference Range Interpretation Comments Thyroid Stimulating Hormone (TSH) (test code = 82571-2) 1.669 0.350-4.940 [facility] TomballFluoroscopic procedure less than one hour dgabpuxq3565-42-24 18:10:00* Test Item Value Reference Range Interpretation Comments Hemoglobin A1c Percent (test code = Hemoglobin A1c Percent) 5.2 4.0-7.0 [facility] or plasma thyroxine (T4) free measurement (mass/volume)2019-05-08 18:10:00* Test Item Value Reference Range Interpretation Comments Free Thyroxine (test code = 3024-7) 0.79 0.8-1.8 [facility] or plasma thyrotropin measurement by detection limit <= 0.005 miu/l (units/volume)2019-05-08 18:10:00* Test Item Value Reference Range Interpretation Comments Thyroid Stimulating Hormone (TSH) (test code = 33238-9) 1.669 0.350-4.940 [facility] TomballFluoroscopic procedure less than one hour hhabaagp3559-08-01 18:10:00* Test Item Value Reference Range Interpretation Comments Hemoglobin A1c Percent (test code = Hemoglobin A1c Percent) 5.2 4.0-7.0 [facility] or plasma thyroxine (T4) free measurement (mass/volume)2019-05-08 18:10:00* Test Item Value Reference Range Interpretation Comments Free Thyroxine (test code = 3024-7) 0.79 0.8-1.8 [facility] or plasma thyrotropin measurement by detection limit <= 0.005 miu/l (units/volume)2019-05-08 18:10:00* Test Item Value Reference Range Interpretation Comments Thyroid Stimulating Hormone (TSH) (test code = 00228-0) 1.669 0.350-4.940 [facility]ballU[facility] TIT1176-01-74 20:28:00* Test Item Value Reference Range Interpretation Comments Urine WBC (test code = 5821-4) 11-20 0-5 H [facility]ballU[facility] DGU6182-35-05 20:28:00* Test Item Value Reference Range Interpretation Comments Urine RBC (test code = 30790-6) 6-10 0-5 H [facility]ballU[facility] Dnbctczb9067-60-29 20:28:00* Test Item Value Reference Range Interpretation Comments Urine Bacteria (test code = 21548-6) MANY NONE H [facility]ballU[facility] Epithelial Gkqlr3784-95-54 20:28:00 * Test Item Value Reference Range Interpretation Comments Urine Epithelial Cells (test code = 42531-4) RARE NONE [facility]ballU[facility] Lwjza1576-80-77 20:12:00* Test Item Value Reference Range Interpretation Comments Urine Color (test code = 5778-6) YELLOW YELLOW [facility]ballU[facility] Bcyreka2006-31-74 20:12:00* Test Item Value Reference Range Interpretation Comments Urine Clarity (test code = 20455-2) CLOUDY CLEAR H [facility]ballUrine Specific Vyfkxyd1257-39-98 20:12:00 * Test Item Value Reference Range Interpretation Comments Urine Specific [place] (test code = 5811-5) 1.020 1.010-1.02 5 [facility]ball[facility] aH5224-82-17 20:12:00* Test Item Value Reference Range Interpretation Comments Urine pH (test code = 06957-5) 5.5 5-7 [facility] Leukocyte Xgxezqko3004-47-70 20:12:00* Test Item Value Reference Range Interpretation Comments Urine Leukocyte Esterase (test code = 5799-2) LARGE NEGATIVE [facility] Eayeuxu4996-28-68 20:12:00* Test Item Value Reference Range Interpretation Comments Urine Nitrite (test code = 14994-2) POSITIVE NEGATIVE H [facility] [place] Hvslkws7421-74-01 20:12:00* Test Item Value Reference Range Interpretation Comments Urine Protein (test code = 5804-0) >=300 NEGATIVE [facility] Glucose (UA)2019-05-06 20:12:00* Test Item Value Reference Range Interpretation Comments Urine Glucose (UA) (test code = 2349-9) 1+ NEGATIVE H [facility] Bullixf1712-99-15 20:12:00* Test Item Value Reference Range Interpretation Comments Urine Ketones (test code = 64383-8) NEGATIVE NEGATIVE [facility] Jtdppktbqxzz5784-28-02 20:12:00* Test Item Value Reference Range Interpretation Comments Urine Urobilinogen (test code = 86478-6) 0.2 0.2-1 [facility]ball[facility] Qfqlrekje6622-45-33 20:12:00* Test Item Value Reference Range Interpretation Comments Urine Bilirubin (test code = 1978-6) NEGATIVE NEGATIVE [facility]ball[facility] Ordgw9158-23-80 20:12:00* Test Item Value Reference Range Interpretation Comments Urine Blood (test code = 13236-4) MODERATE NEGATIVE [facility] TomballInfluenza Virus Types A,B Antigen 2019-05-06 19:44:00* Test Item Value Reference Range Interpretation Comments Influenza Virus Types A,B Antigen (test code = 82246-7) NEGATIVE NEGATIVE [facility] TomballInfluenza Virus Types A,B Antigen 2019-05-06 19:44:00* Test Item Value Reference Range Interpretation Comments Influenza Virus Types A,B Antigen (test code = 62842-9) NEGATIVE NEGATIVE [facility] TomballInfluenza Virus Types A,B Antigen 2019-05-06 19:44:00* Test Item Value Reference Range Interpretation Comments Influenza Virus Types A,B Antigen (test code = 11858-4) NEGATIVE NEGATIVE [facility] TomballLactic Acid Zmdua0312-27-56 19:41:00* Test Item Value Reference Range Interpretation Comments Lactic Acid Level (test code = Lactic Acid Level) 0.8 0.5- 2.0 [facility] TomballCHEST 2 UMUIT5247-54-26 19:37:00 [facility] [address] [address] Patient Name: MANJIT LUO MR #: [id number] : 1980 Age/Sex: 38/M Req #: [id number] Adm Physician: Ordered by: JC CATES NP Report #: [id number] Location: ER Room/Bed: Procedure: [id number] DX/CHEST 2 VIEWS Exam Date: Exam Time: [...] TO: JC CATES NP Group A Streptococcus Gwwrjv2992-82-13 19:35:00* Test Item Value Reference Range Interpretation Comments Group A Streptococcus Screen (test code = 57737-3) NEGATIVE NEG ATIVE [facility] TomballGroup A Streptococcus Ebylgm7902-03-69 19:35:00* Test Item Value Reference Range Interpretation Comments Group A Streptococcus Screen (test code = 91793-1) NEGATIVE NEG ATIVE [facility] TomballGroup A Streptococcus Ahfylz6195-98-54 19:35:00* Test Item Value Reference Range Interpretation Comments Group A Streptococcus Screen (test code = 10480-8) NEGATIVE NEG ATIVE [facility] TomballInfluenza virus A and B antigen identification by sphqhxqvemlgyfiljj9637-67-89 19:03:00* Test Item Value Reference Range Interpretation Comments Influenza Virus Types A,B Antigen (test code = 81257-2) NEGATIVE NEGATIVE [facility] Cent[facility]reptococcus pyogenes antigen detection in ziqavf3341-34-86 19:03:00* Test Item Value Reference Range Interpretation Comments Group A Streptococcus Screen (test code = 49114-9) NEGATIVE NEG ATIVE [facility] TomballInfluenza virus A and B antigen identification by ovmaqpvamlrxrlvdjv3619-51-07 19:03:00* Test Item Value Reference Range Interpretation Comments Influenza Virus Types A,B Antigen (test code = 08299-3) NEGATIVE NEGATIVE [facility] Centertreptococcus pyogenes antigen detection in gwwcoe9480-10-12 19:03:00* Test Item Value Reference Range Interpretation Comments Group A Streptococcus Screen (test code = 85978-5) NEGATIVE NEG ATIVE [facility] TomballFunctional protein I0182-23-60 15:25:13* Test Item Value Reference Range Interpretation Comments Functional protein C (test code = 02905-5) 56 % 70-165 L Low Protein C Activity and prolonged Prothrombin time consistent with vitamin K deficiency, warfarin therapy or liver disease. Recommend repeating Protein C when PT is normal.Reviewed by Huan Keita MD, PhD. Lab Interpretation (test code = 24323-9) Abnormal [facility] protein Y1359-15-01 10:14:15* Test Item Value Reference Range Interpretation Comments Functional protein S (test code = 28537-3) 91 % 74-160 Functional Protein S performed. If result is decreased Total and Free Protein S Antigen will be performed. [facility] qfgps3677-68-95 09:56:20* Test Item Value Reference Range Interpretation Comments Prothrombin time (test code = 5902-2) 15.9 11.5- 14.5 sec H INR (test code = 23454-3) 1.3 Th e International Normalized Ratio (INR) is a therapeutic monitoring tool for patients who are stable on oral anticoagulant therapy. An INR of 2.0-3.0 is suggested for deep vein thrombosis/pulmonary embolism. PTT (test code = 27787-2) 34.0 23.0- 36.0 sec PTT therapeutic range for unfractionated heparin is61.0-112.0 seconds which corresponds to Anti-Xa0.3-0.7 U/ml. PTT lupus anticoagulant (test code = 63764-8) 36.1 27.0- 38 .0 sec Lupus anticoagulant [...] performance characteristics were determined by [facility] in a manner consistent with CLIA requirements. This test has not been cleared or approved by the U.S. Food and Drug Administration. Lab Interpretation (test code = 08719-8) Abnormal [facility] Q-XVSM9984-84MLMQ9456-75-85 14:35:16* Test Item Value Reference Range Interpretation [...] NOT RECOMMENDED FOR USE WITH T=SPOT.TB TEST.Performed by:[facility] Molecular Tuberculosis Laboratory [facility] ([address] [id number])[place], [place] [id number] [place], [place] [address]HSV type 1/2 combined Ab, AaW1078-37-78 13:16:14* Test Item Value Reference Range Interpretation Comments HSV 1/2 combined Ab, IgM (test code = 04022-6) 0.71 <=0.89 IV INTERPRETIVE INFORMATION: Herpes Simplex [...] for more than 12 months post-infection.Performed by [facility],[address] [place] [address] qsa[employer], Trung Boyer MD, Lab. Director [facility] StephenvilleCytomegalovirus Ab, EmY6519-17-04 21:16:52* Test Item Value Reference Range Interpretation Comments Cytomegalovirus Ab, IgM (test code = 6234174) Negative Negative [facility] StephenvilleHLA autologous ukxgpvahdh6724-41-22 20:52:48* Test Item Value Reference Range Interpretation Comments AXL source (test code = 5891) Peripheral Blood AXL current serum ID (test code = 5892) [id number] [facility] serum collection D&T (test code = 5893) 05/03/2019 08:30 AM AXL flow XM T cell result, current (test code = 5894) Negative AXL flow XM B cell result, current (test code = 5895) Negative Case number (test code = 1010948) [id number] HLA autologous crossmatch (test code = 1090) See link below for PDF Lab Report [facility] MethodistHomocystine, vycbux8142-85-98 12:03:28* Test Item Value Reference Range Interpretation Comments Homocysteine (test code = 74520-6) 17.5 umol/L 0-15 H The risk for coronary vascular disease increases progressively with homocysteine concentration. A 3.4 times greater risk is associated with a homocysteine concentration of greater than 15.8 umol/L as compared to a concentration below 14.1 umol/L. Lab Interpretation (test code = 64764-0) Abnormal [facility] MethodistHSV 1 & 2 glycoprotein G Ab, TgB8611-20-02 11:09:49* Test Item Value Reference Range Interpretation Comments HSV 1 glycoprotein G Ab, IgG (test code = 05165-3) Negative Neg ative Negative: No IgG antibodies to HSV1 detected. HSV 2 glycoprotein G Ab, IgG (test code = 15101-5) Negative Neg ative Negative: No IgG antibodies to HSV2 detected. [facility] MethodistCytomegalovirus Ab, SiS5118-37-68 11:09:11* Test Item Value Reference Range Interpretation Comments Cytomegalovirus Ab, IgG (test code = 61590-3) Positive Negative A Positive; IgG antibody to CMV detected which may indicateexposure to CMV infection. Lab Interpretation (test code = 78959-7) Abnormal [facility] MethodistEpstein-Vee virus antibody rvae7518-63-42 11:08:37* Test Item Value Reference Range Interpretation Comments EBV Ab to viral capsid Ag, IgG (test code = 08980-4) Positive N egative A EBV Ab to viral capsid Ag, IgM (test code = 60532-7) Negative N egative EBV Ab to nuclear Ag, IgG (test code = 7883-2) Positive Negativ e A EBV Ab to early (D) Ag, IgG (test code = 75876-5) Negative Nega tive Helder-Vee virus antibody interpretation (test code = 5466) SEE C OMMENT Infection Status: Results may suggest past EBV infection. Lab Interpretation (test code = 81411-6) Abnormal [facility] MethodistParathyroid vetlned2128-43-85 10:15:05* Test Item Value Reference Range Interpretation Comments PTH (test code = 2731-8) 507 pg/mL 15-65 H Lab Interpretation (test code = 65300-1) Abnormal [facility] MethodistAntithrombin III evgxm8341-40-94 10:06:44* Test Item Value Reference Range Interpretation Comments Antithrombin III (test code = 3174-0) 81 % 80-130 [facility] MethodistABORh - rzwdjeidsz2146-86-65 09:58:00* Test Item Value Reference Range Interpretation Comments ABO grouping (test code = 883-9) O Rh type (test code = 81813-3) POS [facility] QjobznakoDkgedpmgif7097-25-00 09:52:47* Test Item Value Reference Range Interpretation Comments Fibrinogen (test code = 86856-4) 627 mg/dL 200-450 H Lab Interpretation (test code = 50237-6) Abnormal [facility] XwfgpvywvYjnrgbjwmkf2842-09-83 09:41:25* Test Item Value Reference Range Interpretation Comments Cholesterol (test code = 2093-3) 86 mg/dL <200 [facility] MethodistCreatinine yywsc4121-09-61 09:41:25* Test Item Value Reference Range Interpretation Comments Creatinine (test code = 2160-0) 4.40 mg/dL 0.7-1.2 H Lab Interpretation (test code = 47408-3) Abnormal [facility] WykvgsksqJIW4100-30-05 09:41:25* Test Item Value Reference Range Interpretation Comments LDH (test code = 72238-4) 235 U/L 87-225 H Lab Interpretation (test code = 09318-2) Abnormal [facility] QhihmkglaGvinoqsvpdkiz7921-56-22 09:41:25* Test Item Value Reference Range Interpretation Comments Triglycerides (test code = 2571-8) 103 mg/dL <150 [facility] MethodistAmylase fcvlu2652-08-76 09:41:24* Test Item Value Reference Range Interpretation Comments Amylase (test code = 1798-8) 46 U/L 28-100 [facility] MethodistGlucose giaui0379-26-42 09:41:24* Test Item Value Reference Range Interpretation Comments Glucose (test code = 2345-7) 146 mg/dL 65-99 H Lab Interpretation (test code = 89309-9) Abnormal [facility] MethodistPhosphorus eummm2111-84-82 09:41:24* Test Item Value Reference Range Interpretation Comments Phosphorus (test code = 2777-1) 4.6 mg/dL 2.4-4.5 H Lab Interpretation (test code = 34555-3) Abnormal [facility] MethodistCT Abdomen Pelvis Wo Mhixnhqv6191-12-27 09:37:13Hm Interface, Radiology Results 05/03/2019 9:40 AM [...] inguinal lymph nodes, nonspecific though may be reactive.[id number] [facility] centerXR Chest 2 Xe0371-40-01 09:36:57Hm Interface, Radiology Results - 05/03/2019 9:40 [...] present.Visualized skeletal structures demonstrate no definite abnormality.Negative examination.[facility]-5MD58928YYMllhhxi MethodistHGB WRP0093-38-53 16:24:00* Test Item Value Reference Range Interpretation Comments HEMOGLOBIN (test code = HGB) 8.1 gm/dL 13.0-17.0 L HEMATOCRIT (test code = HCT) 25.8 % 36.0-48.0 L MGOHQSTR4809-74-19 16:47:00* Test Item Value Reference Range Interpretation Comments FERRITIN (test code = CHANELLE) 374 ng/mL 23.9-336.2 H HGB YZJ7774-63-87 15:41:00* Test Item Value Reference Range Interpretation Comments HEMOGLOBIN (test code = HGB) 8.0 gm/dL 13.0-17.0 L HEMATOCRIT (test code = HCT) 24.8 % 36.0-48.0 LL BASIC METABOLIC UCQOC1575-92-61 18:42:00* Test Item Value Reference Range Interpretation [...] code = CA) 6.3 mg/dl 8.0-10.5 L SEPOHGCJTJU7570-22-96 18:42:00* Test Item Value Reference Range Interpretation Comments PHOSPHOROUS (test code = PHOS) 6.1 mg/dl 2.5-4.9 H URIC FFCU2895-70-99 18:42:00* Test Item Value Reference Range Interpretation Comments URIC ACID (test code = URIC) 8.7 mg/dl 2.6-7.2 H UGOSPGLUT3651-24-82 18:42:00* Test Item Value Reference Range Interpretation [...] = FESAT) 19 % 15-50 N URINALYSIS FJCOHVNM8998-73-03 17:35:00* Test Item Value Reference Range Interpretation [...] code = BACU) MOD NONE UR PROTEIN/CREATININE HICIF2351-84-22 17:35:00* Test Item Value Reference Range Interpretation Comments UR PROTEIN RESULT (test code = PROTU) 421.0 MG/DL 0-15.0 H UR CREATININE RESULT (test code = CREATU) 72.88 MG/DL 30-125 N PROTEIN/CREATININE RATIO (test code = P/CRATIO) 5.0 mg/g cre 0-200 N CBC W/AUTO IQQK4506-63-84 17:25:00* Test Item Value Reference Range Interpretation [...] = BA#) 0.0 K/mm3 0.0-0.2 N URINALYSIS SUNECCIU9855-38-81 17:24:00* Test Item Value Reference Range Interpretation [...] code = BACU) MOD NONE UR PROTEIN/CREATININE JHYAT0233-02-55 17:24:00* Test Item Value Reference Range Interpretation Comments UR PROTEIN RESULT (test code = PROTU) MG/DL 0-15.0 UR CREATININE RESULT (test code = CREATU) MG/DL 30-125 PROTEIN/CREATININE RATIO (test code = P/CRATIO) mg/g cre 0-200 URINALYSIS CGSBCSZZ3224-23-49 17:23:00* Test Item Value Reference Range Interpretation [...] (test code = BACU) NONE UR PROTEIN/CREATININE XSLUD3599-64-70 17:23:00* Test Item Value Reference Range Interpretation Comments UR PROTEIN RESULT (test code = PROTU) MG/DL 0-15.0 UR CREATININE RESULT (test code = CREATU) MG/DL 30-125 PROTEIN/CREATININE RATIO (test code = P/CRATIO) mg/g cre 0-200 Sodium Vxkwp4102-39-40 00:38:00* Test Item Value Reference Range Interpretation Comments Sodium Level (test code = 2951-2) 137 136-145 [facility] TomballPotassium Oqoyw2209-95-26 00:38:00* Test Item Value Reference Range Interpretation Comments Potassium Level (test code = 2823-3) 5.0 3.5-5.1 [facility] TomballChloride Zlwcn3015-53-14 00:38:00* Test Item Value Reference Range Interpretation Comments Chloride Level (test code = 2075-0) 116 98-107 H [facility] TomballCarbon Dioxide Xhmjj5231-70-62 00:38:00* Test Item Value Reference Range Interpretation Comments Carbon Dioxide Level (test code = 2028-9) 13 22-29 L [facility] TomballAnion Dom2815-14-48 00:38:00* Test Item Value Reference Range Interpretation Comments Anion Gap (test code = 32756-6) 13.0 8-16 [facility] TomballBlood Urea Tartclob9528-86-88 00:38:00* Test Item Value Reference Range Interpretation Comments Blood Urea Nitrogen (test code = 3094-0) 42 7-26 H [facility] TomballCreatinine2020-01-27 00:38:00* Test Item Value Reference Range Interpretation Comments Creatinine (test code = 2160-0) 4.16 0.72-1.25 H [facility] TomballBUN/Creatinine Opuon8469-95-68 00:38:00* Test Item Value Reference Range Interpretation Comments BUN/Creatinine Ratio (test code = 3097-3) 10 6-25 [facility] TomballEstimat Glomerular Filtration Rate 2019-03-21 00:38:00* Test Item Value Reference Range Interpretation Comments Estimat Glomerular Filtration Rate (test code = 979133092) 16 >60 L Ranges were taken from the National Kidney Disease Education Program and the [facility] literature.Reference ranges:60 or greater: Wetois13-21 ( for 3 consecutive months): Chronic kidney disease 15 or less: Kidney failureHCA Houston Healthcare TomballGlucose Zuvjt9442-83-81 00:38:00* Test Item Value Reference Range Interpretation Comments Glucose Level (test code = GCB7005) 172 74-118 H [facility] TomballCalcium Dccsd9611-33-51 00:38:00* Test Item Value Reference Range Interpretation Comments Calcium Level (test code = 57089-1) 6.6 8.4-10.2 LL Results repeated and called to MICHAEL MONTGOMERY RN at 0037 on 03/21/19 by Wandy branch Read back and verified.[facility] TomballWhite Blood Wnipa3943-48-03 00:36:00* Test Item Value Reference Range Interpretation Comments White Blood Count (test code = 6690-2) 5.55 4.8-10.8 [facility] TomballRed Blood Eruuf0108-88-08 00:36:00* Test Item Value Reference Range Interpretation Comments Red Blood Count (test code = 789-8) 2.73 4.3-5.7 L [facility] TomballHemoglobin2020-01-27 00:36:00* Test Item Value Reference Range Interpretation Comments Hemoglobin (test code = 46955-4) 7.4 14.0-18.0 L [facility] TomballHematocrit2020-01-27 00:36:00* Test Item Value Reference Range Interpretation Comments Hematocrit (test code = 4544-3) 23.3 38.2-49.6 L [facility] TomballMean Corpuscular Xtyzto3924-98-65 00:36:00* Test Item Value Reference Range Interpretation Comments Mean Corpuscular Volume (test code = 787-2) 85.3 81-99 [facility] TomballMean Corpuscular Vopxtynpre8119-18-04 00:36:00* Test Item Value Reference Range Interpretation Comments Mean Corpuscular Hemoglobin (test code = 785-6) 27.1 28-32 L [facility] TomballMean Corpuscular Hemoglobin Concent 2019-03-21 00:36:00* Test Item Value Reference Range Interpretation Comments Mean Corpuscular Hemoglobin Concent (test code = 786-4) 31.8 31-35 [facility] TomballRed Cell Distribution Czrof6548-33-22 00:36:00* Test Item Value Reference Range Interpretation Comments Red Cell Distribution Width (test code = 11718-2) 14.7 11.7 -14.4 H [facility] TomballPlatelet Psoln8505-04-54 00:36:00* Test Item Value Reference Range Interpretation Comments Platelet Count (test code = 777-3) 187 140-360 [facility] TomballNeutrophils (%) (Auto)2019-03-21 00:36:00 * Test Item Value Reference Range Interpretation Comments Neutrophils (%) (Auto) (test code = 55867-8) 68.1 38.7-80.0 [facility] TomballLymphocytes (%) (Auto)2019-03-21 00:36:00 * Test Item Value Reference Range Interpretation Comments Lymphocytes (%) (Auto) (test code = 736-9) 19.8 18.0-39.1 [facility] TomballMonocytes (%) (Auto)2019-03-21 00:36:00* Test Item Value Reference Range Interpretation Comments Monocytes (%) (Auto) (test code = 5905-5) 9.2 4.4-11.3 [facility] TomballEosinophils (%) (Auto)2019-03-21 00:36:00 * Test Item Value Reference Range Interpretation Comments Eosinophils (%) (Auto) (test code = 713-8) 1.6 0.0-6.0 [facility] TomballBasophils (%) (Auto)2019-03-21 00:36:00* Test Item Value Reference Range Interpretation Comments Basophils (%) (Auto) (test code = 706-2) 0.4 0.0-1.0 [facility] TomballIM GRANULOCYTES %2019-03-21 00:36:00* Test Item Value Reference Range Interpretation Comments IM GRANULOCYTES % (test code = IM GRANULOCYTES %) 0.9 0.0- 1.0 [facility] TomballNeutrophils # (Auto)2019-03-21 00:36:00* Test Item Value Reference Range Interpretation Comments Neutrophils # (Auto) (test code = 751-8) 3.8 2.1-6.9 [facility] TomballLymphocytes # (Auto)2019-03-21 00:36:00* Test Item Value Reference Range Interpretation Comments Lymphocytes # (Auto) (test code = 44071-2) 1.1 1.0-3.2 [facility] TomballMonocytes # (Auto)2019-03-21 00:36:00* Test Item Value Reference Range Interpretation Comments Monocytes # (Auto) (test code = 742-7) 0.5 0.2-0.8 [facility] TomballEosinophils # (Auto)2019-03-21 00:36:00* Test Item Value Reference Range Interpretation Comments Eosinophils # (Auto) (test code = 711-2) 0.1 0.0-0.4 [facility] TomballBasophils # (Auto)2019-03-21 00:36:00* Test Item Value Reference Range Interpretation Comments Basophils # (Auto) (test code = 704-7) 0.0 0.0-0.1 [facility] TomballAbsolute Immature Granulocyte (auto 2019-03-21 00:36:00* Test Item Value Reference Range Interpretation Comments Absolute Immature Granulocyte (auto (shin t code = Absolute Immature Granulocyte (auto) 0.05 0-0.1 [facility] TomballUrine JFZ0024-07-41 00:27:00* Test Item Value Reference Range Interpretation Comments Urine WBC (test code = 5821-4) >50 0-5 H [facility] TomballUrine FPD9494-00-09 00:27:00* Test Item Value Reference Range Interpretation Comments Urine RBC (test code = 51508-0) >50 0-5 H [facility] TomballUrine Yihyahmh0469-82-43 00:27:00* Test Item Value Reference Range Interpretation Comments Urine Bacteria (test code = 07062-7) MANY NONE [facility]icsU[facility] Epithelial Knmqy9130-83-87 00:27:00 * Test Item Value Reference Range Interpretation Comments Urine Epithelial Cells (test code = 15352-5) FEW NONE [facility] TomballUrine Qload6439-33-28 00:19:00* Test Item Value Reference Range Interpretation Comments Urine Color (test code = 5778-6) REMEDIOS YELLOW [facility] ClinicsUrine Knkxptq3785-63-33 00:19:00* Test Item Value Reference Range Interpretation Comments Urine Clarity (test code = 53225-1) CLOUDY CLEAR H [facility] TomballUrine Specific Efvphnu5986-87-41 00:16:00 * Test Item Value Reference Range Interpretation Comments Urine Specific [place] (test code = 5811-5) 1.025 1.010-1.02 5 [facility] TomballUrine dN6111-92-75 00:16:00* Test Item Value Reference Range Interpretation Comments Urine pH (test code = 16712-6) 6.5 5-7 [facility] TomballUrine Leukocyte Mrnldbqb5728-40-13 00:16:00* Test Item Value Reference Range Interpretation Comments Urine Leukocyte Esterase (test code = 5799-2) 2+ NEGATIVE [facility]icsUrine Pmbnndm0455-69-28 00:16:00* Test Item Value Reference Range Interpretation Comments Urine Nitrite (test code = 80697-3) POSITIVE NEGATIVE [facility] ClinicsUrine Rxnztjh7031-84-58 00:16:00* Test Item Value Reference Range Interpretation Comments Urine Protein (test code = 5804-0) 3+ NEGATIVE H [facility] TomballUrine Glucose (UA)2019-03-21 00:16:00* Test Item Value Reference Range Interpretation Comments Urine Glucose (UA) (test code = 2349-9) 1+ NEGATIVE H [facility] TomballUrine Bfdrhup5790-23-30 00:16:00* Test Item Value Reference Range Interpretation Comments Urine Ketones (test code = 76978-5) NEGATIVE NEGATIVE [facility] Bwehhfqxpgrs8729-48-73 00:16:00* Test Item Value Reference Range Interpretation Comments Urine Urobilinogen (test code = 37385-4) 0.2 0.2-1 [facility] TomballUrine Kywaygjwx5664-86-39 00:16:00* Test Item Value Reference Range Interpretation Comments Urine Bilirubin (test code = 1978-6) NEGATIVE NEGATIVE [facility] Ppumr0349-08-38 00:16:00* Test Item Value Reference Range Interpretation Comments Urine Blood (test code = 38410-3) 4+ NEGATIVE H [facility] Shmntih2355-61-52 11:47:00* Test Item Value Reference Range Interpretation Comments Bedside Glucose (test code = 35737-2) 113 70-120 Meter ID: [id number] [facility] Hospital Glucose 2019-02-20 11:47:00* Test Item Value Reference Range Interpretation Comments Bedside Glucose (test code = 93400-5) 113 70-120 Meter ID: [id number] Medical Centerodium Level 2019-02-19 12:01:00* Test Item Value Reference Range Interpretation Comments Sodium Level (test code = 2951-2) 135 136-145 L [facility] TomballPotassium Cetoh1656-18-31 12:01:00* Test Item Value Reference Range Interpretation Comments Potassium Level (test code = 2823-3) 4.4 3.5-5.1 [facility] TomballChloride Dcenb0785-90-42 12:01:00* Test Item Value Reference Range Interpretation Comments Chloride Level (test code = 2075-0) 107 98-107 [facility] TomballCarbon Dioxide Quudo5250-55-81 12:01:00* Test Item Value Reference Range Interpretation Comments Carbon Dioxide Level (test code = 2028-9) 22 22-29 [facility] TomballAnion Cnn5156-02-70 12:01:00* Test Item Value Reference Range Interpretation Comments Anion Gap (test code = 75451-6) 10.4 8-16 [facility] TomballBlood Urea Gfpsdjqa5273-46-29 12:01:00* Test Item Value Reference Range Interpretation Comments Blood Urea Nitrogen (test code = 3094-0) 28 7-26 H [facility] TomballCreatinine2019-12-28 12:01:00* Test Item Value Reference Range Interpretation Comments Creatinine (test code = 2160-0) 3.39 0.72-1.25 H [facility] TomballBUN/Creatinine Uonsp8437-91-66 12:01:00* Test Item Value Reference Range Interpretation Comments BUN/Creatinine Ratio (test code = 3097-3) 8 6-25 [facility] TomballEstimat Glomerular Filtration Rate 2019-02-19 12:01:00* Test Item Value Reference Range Interpretation Comments Estimat Glomerular Filtration Rate (test code = 847153928) 20 >60 L Ranges were taken from the National Kidney Disease Education Program and the [facility] Foundation literature.Reference ranges:60 or greater: Vkgksk05-03 ( for 3 consecutive months): Chronic kidney disease 15 or less: Kidney failureHCA [facility] Healthcare TomballGlucose Ppfkx1959-96-88 12:01:00* Test Item Value Reference Range Interpretation Comments Glucose Level (test code = INU1398) 158 74-118 H [facility] TomballCalcium Vlevd9016-00-79 12:01:00* Test Item Value Reference Range Interpretation Comments Calcium Level (test code = 60599-6) 7.2 8.4-10.2 L [facility] TomballWhite Blood Iafzm7086-22-77 11:43:00* Test Item Value Reference Range Interpretation Comments White Blood Count (test code = 6690-2) 3.62 4.8-10.8 L [facility] TomballRed Blood Krhox0647-26-91 11:43:00* Test Item Value Reference Range Interpretation Comments Red Blood Count (test code = 789-8) 2.84 4.3-5.7 L [facility] TomballHemoglobin2019-12-28 11:43:00* Test Item Value Reference Range Interpretation Comments Hemoglobin (test code = 47850-2) 7.5 14.0-18.0 L [facility] TomballHematocrit2019-12-28 11:43:00* Test Item Value Reference Range Interpretation Comments Hematocrit (test code = 4544-3) 23.2 38.2-49.6 L [facility] TomballMean Corpuscular Mfljgd4471-26-44 11:43:00* Test Item Value Reference Range Interpretation Comments Mean Corpuscular Volume (test code = 787-2) 81.7 81-99 [facility] TomballMean Corpuscular Penelqbnoa2013-52-68 11:43:00* Test Item Value Reference Range Interpretation Comments Mean Corpuscular Hemoglobin (test code = 785-6) 26.4 28-32 L [facility] TomballMean Corpuscular Hemoglobin Concent 2019-02-19 11:43:00* Test Item Value Reference Range Interpretation Comments Mean Corpuscular Hemoglobin Concent (test code = 786-4) 32.3 31-35 [facility] TomballRed Cell Distribution Skiju1777-63-87 11:43:00* Test Item Value Reference Range Interpretation Comments Red Cell Distribution Width (test code = 48380-1) 15.9 11.7 -14.4 H [facility] TomballPlatelet Crbam3560-12-70 11:43:00* Test Item Value Reference Range Interpretation Comments Platelet Count (test code = 777-3) 95 140-360 L [facility] TomballNeutrophils (%) (Auto)2019-02-19 11:43:00 * Test Item Value Reference Range Interpretation Comments Neutrophils (%) (Auto) (test code = 26106-8) 57.5 38.7-80.0 [facility] TomballLymphocytes (%) (Auto)2019-02-19 11:43:00 * Test Item Value Reference Range Interpretation Comments Lymphocytes (%) (Auto) (test code = 736-9) 30.9 18.0-39.1 [facility] TomballMonocytes (%) (Auto)2019-02-19 11:43:00* Test Item Value Reference Range Interpretation Comments Monocytes (%) (Auto) (test code = 5905-5) 6.9 4.4-11.3 [facility] TomballEosinophils (%) (Auto)2019-02-19 11:43:00 * Test Item Value Reference Range Interpretation Comments Eosinophils (%) (Auto) (test code = 713-8) 3.3 0.0-6.0 [facility] TomballBasophils (%) (Auto)2019-02-19 11:43:00* Test Item Value Reference Range Interpretation Comments Basophils (%) (Auto) (test code = 706-2) 0.3 0.0-1.0 [facility] TomballIM GRANULOCYTES %2019-02-19 11:43:00* Test Item Value Reference Range Interpretation Comments IM GRANULOCYTES % (test code = IM GRANULOCYTES %) 1.1 0.0- 1.0 H [facility] TomballNeutrophils # (Auto)2019-02-19 11:43:00* Test Item Value Reference Range Interpretation Comments Neutrophils # (Auto) (test code = 751-8) 2.1 2.1-6.9 [facility] TomballLymphocytes # (Auto)2019-02-19 11:43:00* Test Item Value Reference Range Interpretation Comments Lymphocytes # (Auto) (test code = 35273-7) 1.1 1.0-3.2 [facility] TomballMonocytes # (Auto)2019-02-19 11:43:00* Test Item Value Reference Range Interpretation Comments Monocytes # (Auto) (test code = 742-7) 0.3 0.2-0.8 [facility] TomballEosinophils # (Auto)2019-02-19 11:43:00* Test Item Value Reference Range Interpretation Comments Eosinophils # (Auto) (test code = 711-2) 0.1 0.0-0.4 [facility] TomballBasophils # (Auto)2019-02-19 11:43:00* Test Item Value Reference Range Interpretation Comments Basophils # (Auto) (test code = 704-7) 0.0 0.0-0.1 [facility] TomballAbsolute Immature Granulocyte (auto 2019-02-19 11:43:00* Test Item Value Reference Range Interpretation Comments Absolute Immature Granulocyte (auto (shin t code = Absolute Immature Granulocyte (auto) 0.04 0-0.1 [facility] Foaiopm5547-57-78 07:44:00* Test Item Value Reference Range Interpretation Comments Urine Culture (test code = 630-4) No Result Data Provided [facility]2019-12-28 07:44:00* Test Item Value Reference Range Interpretation Comments Urine Culture (test code = 630-4) No Result Data Provided [facility]2019-12-28 07:44:00* Test Item Value Reference Range Interpretation Comments Urine Culture (test code = 630-4) No Result Data Provided [facility]2019-12-28 07:44:00* Test Item Value Reference Range Interpretation Comments Urine Culture (test code = 630-4) No Result Data Provided [facility]2019-12-28 07:44:00* Test Item Value Reference Range Interpretation Comments Urine Culture (test code = 630-4) No Result Data Provided [facility] TomballNEPH TUBE REMOVAL W/FL AMOFS2717-66-27 15:39:00 [place] [address] Patient Name: MANJIT LUO MR #: [id number] : 1980 Age/Sex: 38/M Req #: [id number] Adm Physician: CASTRO JALLOH MD Ordered by: CASTRO JALLOH MD Report #: [id number] Location: MED/SURG Room/Bed: 110-1 Procedure: [id number] IR/NE PH TUBE REMOVAL W/FL RIGHT Exam [...] on 02/18/191 COPY TO: CASTRO JALLOH MD Cmiajgld5305-90-43 07:06:00* Test Item Value Reference Range Interpretation Comments Ferritin (test code = 2276-4) 23.96 21.81-274.66 [facility] TomballFerritin2019-12-27 07:06:00* Test Item Value Reference Range Interpretation Comments Ferritin (test code = 2276-4) 23.96 21.81-274.66 [facility] Ywgvdgg1596-25-87 06:39:00* Test Item Value Reference Range Interpretation Comments Ionized Calcium (test code = 52218-9) 1.0 1.09-1.30 L [facility] Wavwagk8045-92-14 06:39:00* Test Item Value Reference Range Interpretation Comments Ionized Calcium (test code = 06151-0) 1.0 1.09-1.30 L [facility] TomballIonized Zxkmxxz6786-96-41 06:39:00* Test Item Value Reference Range Interpretation Comments Ionized Calcium (test code = 92509-1) 1.0 1.09-1.30 L [facility] TomballIonized Hjlnhdf8141-48-54 06:39:00* Test Item Value Reference Range Interpretation Comments Ionized Calcium (test code = 03692-0) 1.0 1.09-1.30 L [facility] TomballIonized Qvxotpn7216-23-83 06:39:00* Test Item Value Reference Range Interpretation Comments Ionized Calcium (test code = 59561-2) 1.0 1.09-1.30 L [facility] TomballPhosphorus Xfige8403-93-70 08:27:00* Test Item Value Reference Range Interpretation Comments Phosphorus Level (test code = NXP4120) 4.3 2.3-4.7 [facility] TomballAlbumin2019-12-26 08:27:00* Test Item Value Reference Range Interpretation Comments Albumin (test code = 1751-7) 2.4 3.5-5.0 L [facility] TomballPhosphorus Fcudv3292-63-11 08:27:00* Test Item Value Reference Range Interpretation Comments Phosphorus Level (test code = BRI5327) 4.3 2.3-4.7 [facility] TomballAlbumin2019-12-26 08:27:00* Test Item Value Reference Range Interpretation Comments Albumin (test code = 1751-7) 2.4 3.5-5.0 L [facility] TomballUrine Pznae9735-86-35 10:43:00* Test Item Value Reference Range Interpretation Comments Urine Color (test code = 5778-6) REMEDIOS YELLOW H [facility] TomballUrine Vhpxyoq1243-26-66 10:43:00* Test Item Value Reference Range Interpretation Comments Urine Clarity (test code = 79227-1) CLOUDY CLEAR H [facility] TomballUrine Specific Zevpiwm5224-32-00 10:43:00 * Test Item Value Reference Range Interpretation Comments Urine Specific [place] (test code = 5811-5) 1.020 1.010-1.02 5 [facility] TomballUrine vJ4615-88-35 10:43:00* Test Item Value Reference Range Interpretation Comments Urine pH (test code = 44889-9) 6.5 5-7 [facility]ballUrine Leukocyte Umpyexkt5138-76-42 10:43:00* Test Item Value Reference Range Interpretation Comments Urine Leukocyte Esterase (test code = 5799-2) MODERATE NEGATIVE [facility] Ygejmef9261-97-76 10:43:00* Test Item Value Reference Range Interpretation Comments Urine Nitrite (test code = 79927-0) NEGATIVE NEGATIVE [facility] Rwtzshq0275-15-28 10:43:00* Test Item Value Reference Range Interpretation Comments Urine Protein (test code = 5804-0) 2+ NEGATIVE H [facility] Glucose (UA)2019-02-16 10:43:00* Test Item Value Reference Range Interpretation Comments Urine Glucose (UA) (test code = 2349-9) NEGATIVE NEGATIVE [facility] Kweanbm8188-84-61 10:43:00* Test Item Value Reference Range Interpretation Comments Urine Ketones (test code = 49123-1) NEGATIVE NEGATIVE [facility] Vkklrsjhcvmi9115-77-16 10:43:00* Test Item Value Reference Range Interpretation Comments Urine Urobilinogen (test code = 64930-6) 0.2 0.2-1 [facility] TomballUrine Hvsgsfumb9808-44-19 10:43:00* Test Item Value Reference Range Interpretation Comments Urine Bilirubin (test code = 1978-6) SMALL NEGATIVE [facility] Ykret6060-81-40 10:43:00* Test Item Value Reference Range Interpretation Comments Urine Blood (test code = 44371-5) NEGATIVE NEGATIVE [facility] TomballUrine VDL5175-99-43 10:43:00* Test Item Value Reference Range Interpretation Comments Urine WBC (test code = 5821-4) 0-5 0-5 [facility] TomballUrine ZRM1550-54-92 10:43:00* Test Item Value Reference Range Interpretation Comments Urine RBC (test code = 66132-5) 0-5 0-5 [facility]ballUrine Yjdhxbjw8785-03-08 10:43:00* Test Item Value Reference Range Interpretation Comments Urine Bacteria (test code = 97608-9) RARE NONE [facility] TomballUrine Epithelial Ylbxl9581-64-24 10:43:00 * Test Item Value Reference Range Interpretation Comments Urine Epithelial Cells (test code = 70133-3) FEW NONE [facility] TomballBacterial urine pzdeold9377-51-58 09:30:00* Test Item Value Reference Range Interpretation Comments Urine Culture (test code = 630-4) STAPHYLOCOCCUS AUREUS [facility] TomballBacteria urine pvcmpsk3268-07-13 09:30:00* Test Item Value Reference Range Interpretation Comments Urine Culture (test code = 630-4) STAPHYLOCOCCUS AUREUS [facility] TomballMagnesium Mwfcj5839-49-88 06:58:00* Test Item Value Reference Range Interpretation Comments Magnesium Level (test code = 90259-2) 1.3 1.3-2.1 [facility] TomballMagnesium Gesgl6700-35-14 06:58:00* Test Item Value Reference Range Interpretation Comments Magnesium Level (test code = 55671-4) 1.3 1.3-2.1 [facility] TomballMagnesium Ofzwt0680-50-67 06:58:00* Test Item Value Reference Range Interpretation Comments Magnesium Level (test code = 13452-5) 1.3 1.3-2.1 [facility] TomballIR FPLPBMK2313-78-46 16:41:00 [place] [address] Patient Name: MANJIT LUO MR #: [id number] : 1980 Age/Sex: 38/M Req #: [id number] Adm Physician: CASTRO JALLOH MD Ordered by: CASTRO JALLOH MD Report #: [id number] Location: MED/SURG Room/Bed: 110-1 Procedure: [id number] DX/IR CONSULT Exam Date: Exam Time: REPORT [...] urology. PROCEDURE SUMMARY - Target organ: Unilateral lower [place] kidney - Image-guided placement of genitour inary [...] TO: CASTRO JALLOH MD NEPHRO/URET W IMG/INJ-NEW RVO1857-17-63 16:41:00 [place] [address] Patient Name: MANJIT LUO MR #: [id number] : 1980 Age/Sex: 38/M Req #: [id number] [facility] Physician: CASTRO JALLOH MD Ordered by: CASTRO JALLOH MD Report #: [id number] Location: MED/SURG Room/Bed: [facility] Procedure: [id number] IR/NE PHRO/URET W IMG/INJ-NEW ACC Exam Date: [...] urology. PROCEDURE SUMMARY - Target organ: Unilateral lower [place] kidney - Image-guided pl acement of genitourinary [...] COPY TO: BLANCA JALLOH MD GUIDANCE FOR NERZFHCRB5856-62-85 16:41:00 [facility] [address] [place] [address] Patient Name: MANJIT LUO MR #: [id number] : 1980 Age/Sex: 38/M Req #: [id number] [facility] Physician: CASTRO JALLOH MD Ordered by: CASTRO JALLOH MD Report #: [id number] Location: MED/SURG Room/Bed: [facility] Procedure: [id number] US/US GUIDANCE FOR PROCEDURE Exam Date: 02/15/19 Exam Cm e: [id number] REPORT STATUS: Signed NM OCEDURE: Genitourinary catheter placement Procedural Personnel Attending [...] __ PROCEDURE SUMMARY - Target organ: Unilateral lower [place] kidney - Image-g uided placement of genitourinary [...] 02/15/191645 COPY TO: CASTRO CESPEDES MD Prothrombin Depj7804-82-17 16:06:00* Test Item Value Reference Range Interpretation Comments Prothrombin Time (test code = 5902-2) 14.4 11.9-14.5 [facility] TomballProthromb Time International Ratio 2019-02-15 16:06:00* Test Item Value Reference Range Interpretation Comments Prothromb Time International Ratio (test code = 6301-6) 1.07 Oral Anticoagulant Therapy INR Values:1. Low Intensity Therapy 1.5 - 2.02 . Moderate Intensity Therapy 2.0 - 3.03. High Intensity Therapy(1) 2.5 - 3. 54. High Intensity Therapy(2) 3.0 - 4.05. Panic Value INR > 5.0 [facility] TomballActivated Partial Thromboplast Time 2019-02-15 16:06:00* Test Item Value Reference Range Interpretation Comments Activated Partial Thromboplast Time (test code = 61058-8) 32.7 23.8-35.5 [facility] TomballProthrombin Fbjq4235-09-86 16:06:00* Test Item Value Reference Range Interpretation Comments Prothrombin Time (test code = 5902-2) 14.4 11.9-14.5 [facility] TomballProthromb Time International Ratio 2019-02-15 16:06:00* Test Item Value Reference Range Interpretation Comments Prothromb Time International Ratio (test code = 6301-6) 1.07 Oral Anticoagulant Therapy INR Values:1. Low Intensity Therapy 1.5 - 2.02 . Moderate Intensity Therapy 2.0 - 3.03. High Intensity Therapy(1) 2.5 - 3. 54. High Intensity Therapy(2) 3.0 - 4.05. Panic Value INR > 5.0 [facility] TomballActivated Partial Thromboplast Time 2019-02-15 16:06:00* Test Item Value Reference Range Interpretation Comments Activated Partial Thromboplast Time (test code = 94597-6) 32.7 23.8-35.5 [facility] TomballActivated Partial Thromboplast Time 2019-02-15 16:06:00* Test Item Value Reference Range Interpretation Comments Activated Partial Thromboplast Time (test code = 58701-3) 32.7 23.8-35.5 [facility] TomballActivated Partial Thromboplast Time 2019-02-15 16:06:00* Test Item Value Reference Range Interpretation Comments Activated Partial Thromboplast Time (test code = 98479-5) 32.7 23.8-35.5 [facility] TomballActivated Partial Thromboplast Time 2019-02-15 16:06:00* Test Item Value Reference Range Interpretation Comments Activated Partial Thromboplast Time (test code = 21308-7) 32.7 23.8-35.5 [facility] TomballActivated partial thromboplastin time (aPTT) in platelet poor plasma by coagulation gnmfc4641-08-02 14:23:00* Test Item Value Reference Range Interpretation Comments Activated Partial Thromboplast Time (test code = 19342-1) 32.7 23.8-35.5 [facility] TomballRENAL SCAN W/FWHOD5215-50-41 18:29:00 [place] [address] Patient Name: MANJIT LUO MR #: [id number] : 1980 Age/Sex: 38/M Req #: [id number] Adm Physician: Ordered by: CASTRO JALLOH MD Report #: [id number] Location: [place] Room/Bed: Procedure: [id number] NM/RE NAL SCAN W/LASIX Exam Date: 01/14/19 [...] COPY TO: CASTRO JALLOH MD ABDOMEN 2 GJKS3474-69-68 11:34:00 [place] [address] Patient Name: MANJIT LUO MR #: [id number] : 1980 Age/Sex: 38/M Req #: [id number] Adm Physician: Ordered by: LUZ MARINA CURRIE MD Report #: [id number] Location: ER Room/Bed: Procedure: [id number] DX/ABDOMEN [...] LUZ MARINA CURRIE MD Differential Total Cells Sklpzst8449-25-01 11:23:00* Test Item Value Reference Range Interpretation Comments Differential Total Cells Counted (test code = Brian pro Total Cells Counted) 100 [facility] TomballNeutrophils % (Manual)2018-11-11 11:23:00 * Test Item Value Reference Range Interpretation Comments Neutrophils % (Manual) (test code = 11332-4) 74 40-74 [facility] TomballLymphocytes % (Manual)2018-11-11 11:23:00 * Test Item Value Reference Range Interpretation Comments Lymphocytes % (Manual) (test code = 737-7) 19 19-48 [facility] TomballMonocytes % (Manual)2018-11-11 11:23:00* Test Item Value Reference Range Interpretation Comments Monocytes % (Manual) (test code = 744-3) 5 3.4-9.0 [facility] TomballEosinophils % (Manual)2018-11-11 11:23:00 * Test Item Value Reference Range Interpretation Comments Eosinophils % (Manual) (test code = 714-6) 2 0-7 [facility] TomballPlatelet Szoylogq2191-48-62 11:23:00* Test Item Value Reference Range Interpretation Comments Platelet Estimate (test code = 20734-6) MODERATELY DECREASED [facility] TomballPlatelet Morphology Bptqouq0486-26-96 11:23:00* Test Item Value Reference Range Interpretation Comments Platelet Morphology Comment (test code = 26068-3) FEW LARGE NO PLT CLUMPSHCA [facility] Healthcare TomballRed Cell Morphology Comment 2018-11-11 11:23:00* Test Item Value Reference Range Interpretation Comments Red Cell Morphology Comment (test code = 6742-1) NORMAL [facility] TomballDifferential Total Cells Counted 2018-11-11 11:23:00* Test Item Value Reference Range Interpretation Comments Differential Total Cells Counted (test code = Differen tial Total Cells Counted) 100 [facility] TomballNeutrophils % (Manual)2018-11-11 11:23:00 * Test Item Value Reference Range Interpretation Comments Neutrophils % (Manual) (test code = 72348-6) 74 40-74 [facility] TomballLymphocytes % (Manual)2018-11-11 11:23:00 * Test Item Value Reference Range Interpretation Comments Lymphocytes % (Manual) (test code = 737-7) 19 19-48 [facility] TomballMonocytes % (Manual)2018-11-11 11:23:00* Test Item Value Reference Range Interpretation Comments Monocytes % (Manual) (test code = 744-3) 5 3.4-9.0 [facility] TomballEosinophils % (Manual)2018-11-11 11:23:00 * Test Item Value Reference Range Interpretation Comments Eosinophils % (Manual) (test code = 714-6) 2 0-7 [facility] TomballPlatelet Qaqfteec3086-06-86 11:23:00* Test Item Value Reference Range Interpretation Comments Platelet Estimate (test code = 12409-4) MODERATELY DECREASED [facility] TomballPlatelet Morphology Gnouzqj5827-78-52 11:23:00* Test Item Value Reference Range Interpretation Comments Platelet Morphology Comment (test code = 96278-6) FEW LARGE NO PLT CLUMPSHCA [facility] TomballRed Cell Morphology Comment 2018-11-11 11:23:00* Test Item Value Reference Range Interpretation Comments Red Cell Morphology Comment (test code = 6742-1) NORMAL [facility] TomballDifferential Total Cells Counted 2018-11-11 11:23:00* Test Item Value Reference Range Interpretation Comments Differential Total Cells Counted (test code = Differen tial Total Cells Counted) 100 [facility] TomballNeutrophils % (Manual)2018-11-11 11:23:00 * Test Item Value Reference Range Interpretation Comments Neutrophils % (Manual) (test code = 18225-4) 74 40-74 [facility] TomballLymphocytes % (Manual)2018-11-11 11:23:00 * Test Item Value Reference Range Interpretation Comments Lymphocytes % (Manual) (test code = 737-7) 19 - [facility] TomballMonocytes % (Manual)2018-11-11 11:23:00* Test Item Value Reference Range Interpretation Comments Monocytes % (Manual) (test code = 744-3) 5 3.4-9.0 [facility] TomballEosinophils % (Manual)2018-11-11 11:23:00 * Test Item Value Reference Range Interpretation Comments Eosinophils % (Manual) (test code = 714-6) 2 0-7 [facility] TomballPlatelet Tigdfjzp7953-07-39 11:23:00* Test Item Value Reference Range Interpretation Comments Platelet Estimate (test code = 75149-4) MODERATELY DECREASED [facility] TomballPlatelet Morphology Tqyvtwi3433-99-22 11:23:00* Test Item Value Reference Range Interpretation Comments Platelet Morphology Comment (test code = 32399-5) FEW LARGE NO PLT CLUMPSHCA [facility] TomballRed Cell Morphology Comment 2018-11-11 11:23:00* Test Item Value Reference Range Interpretation Comments Red Cell Morphology Comment (test code = 6742-1) NORMAL [facility] TomballDifferential Total Cells Counted 2018-11-11 11:23:00* Test Item Value Reference Range Interpretation Comments Differential Total Cells Counted (test code = Differomar tial Total Cells Counted) 100 [facility] TomballNeutrophils % (Manual)2018-11-11 11:23:00 * Test Item Value Reference Range Interpretation Comments Neutrophils % (Manual) (test code = 10201-7) 74 40-74 [facility] TomballLymphocytes % (Manual)2018-11-11 11:23:00 * Test Item Value Reference Range Interpretation Comments Lymphocytes % (Manual) (test code = 737-7) [facility] TomballMonocytes % (Manual)2018-11-11 11:23:00* Test Item Value Reference Range Interpretation Comments Monocytes % (Manual) (test code = 744-3) 5 3.4-9.0 [facility] TomballEosinophils % (Manual)2018-11-11 11:23:00 * Test Item Value Reference Range Interpretation Comments Eosinophils % (Manual) (test code = 714-6) 2 0-7 [facility] TomballPlatelet Mkjwagaw4338-34-48 11:23:00* Test Item Value Reference Range Interpretation Comments Platelet Estimate (test code = 42716-2) MODERATELY DECREASED [facility] TomballPlatelet Morphology Waqarfp1951-44-04 11:23:00* Test Item Value Reference Range Interpretation Comments Platelet Morphology Comment (test code = 62939-0) FEW LARGE NO PLT CLUMPSHCA [facility] Healthcare TomballRed Cell Morphology Comment 2018-11-11 11:23:00* Test Item Value Reference Range Interpretation Comments Red Cell Morphology Comment (test code = 6742-1) NORMAL [facility] TomballDifferential Total Cells Counted 2018-11-11 11:23:00* Test Item Value Reference Range Interpretation Comments Differential Total Cells Counted (test code = Differomar tial Total Cells Counted) 100 [facility] TomballNeutrophils % (Manual)2018-11-11 11:23:00 * Test Item Value Reference Range Interpretation Comments Neutrophils % (Manual) (test code = 14485-6) 74 40-74 [facility] TomballLymphocytes % (Manual)2018-11-11 11:23:00 * Test Item Value Reference Range Interpretation Comments Lymphocytes % (Manual) (test code = 737-7) 19 19-48 [facility] TomballMonocytes % (Manual)2018-11-11 11:23:00* Test Item Value Reference Range Interpretation Comments Monocytes % (Manual) (test code = 744-3) 5 3.4-9.0 [facility] TomballEosinophils % (Manual)2018-11-11 11:23:00 * Test Item Value Reference Range Interpretation Comments Eosinophils % (Manual) (test code = 714-6) 2 0-7 [facility] TomballPlatelet Xveuyrxg3759-07-46 11:23:00* Test Item Value Reference Range Interpretation Comments Platelet Estimate (test code = 76367-2) MODERATELY DECREASED [facility] TomballPlatelet Morphology Ofulxlo4195-73-79 11:23:00* Test Item Value Reference Range Interpretation Comments Platelet Morphology Comment (test code = 97290-2) FEW LARGE NO PLT CLUMPSCHI [facility] DallasRed Cell Morphology Comment 2018-11-11 11:23:00* Test Item Value Reference Range Interpretation Comments Red Cell Morphology Comment (test code = 6742-1) NORMAL [facility] TomballDifferential Total Cells Counted 2018-11-11 11:23:00* Test Item Value Reference Range Interpretation Comments Differential Total Cells Counted (test code = Differomar tial Total Cells Counted) 100 [facility] TomballNeutrophils % (Manual)2018-11-11 11:23:00 * Test Item Value Reference Range Interpretation Comments Neutrophils % (Manual) (test code = 90306-7) 74 40-74 [facility] TomballLymphocytes % (Manual)2018-11-11 11:23:00 * Test Item Value Reference Range Interpretation Comments Lymphocytes % (Manual) (test code = 737-7) 19 19-48 [facility] TomballMonocytes % (Manual)2018-11-11 11:23:00* Test Item Value Reference Range Interpretation Comments Monocytes % (Manual) (test code = 744-3) 5 3.4-9.0 [facility] TomballEosinophils % (Manual)2018-11-11 11:23:00 * Test Item Value Reference Range Interpretation Comments Eosinophils % (Manual) (test code = 714-6) 2 0-7 [facility] TomballPlatelet Fbdmqwby4774-37-70 11:23:00* Test Item Value Reference Range Interpretation Comments Platelet Estimate (test code = 70450-1) MODERATELY DECREASED [facility] TomballPlatelet Morphology Aglexhs2379-42-89 11:23:00* Test Item Value Reference Range Interpretation Comments Platelet Morphology Comment (test code = 95044-7) FEW LARGE NO PLT CLUMPSHCA [facility] Healthcare TomballRed Cell Morphology Comment 2018-11-11 11:23:00* Test Item Value Reference Range Interpretation Comments Red Cell Morphology Comment (test code = 6742-1) NORMAL [facility] TomballUrine RQE0160-42-31 08:27:00* Test Item Value Reference Range Interpretation Comments Urine WBC (test code = 5821-4) 21-50 0-5 H [facility] TomballUrine BDV6781-47-80 08:27:00* Test Item Value Reference Range Interpretation Comments Urine RBC (test code = 70930-7) 21-50 0-5 H [facility] TomballUrine Keoatudq5819-36-99 08:27:00* Test Item Value Reference Range Interpretation Comments Urine Bacteria (test code = 04262-6) RARE NONE [facility] TomballUrine Epithelial Ihnnd1770-24-83 08:27:00 * Test Item Value Reference Range Interpretation Comments Urine Epithelial Cells (test code = 92514-2) FEW NONE [facility] TomballUrine Toarv1119-48-40 08:20:00* Test Item Value Reference Range Interpretation Comments Urine Color (test code = 5778-6) YELLOW YELLOW [facility] TomballUrine Tbdauks1333-34-59 08:20:00* Test Item Value Reference Range Interpretation Comments Urine Clarity (test code = 19034-7) SL CLOUDY CLEAR H [facility] TomballUrine Specific Ecwxevy3888-46-90 08:20:00 * Test Item Value Reference Range Interpretation Comments Urine Specific [place] (test code = 5811-5) 1.025 1.010-1.02 5 [facility] TomballUrine mQ0984-99-85 08:20:00* Test Item Value Reference Range Interpretation Comments Urine pH (test code = 48068-7) 6 5-7 [facility] TomballUrine Leukocyte Npahswki8490-80-78 08:20:00* Test Item Value Reference Range Interpretation Comments Urine Leukocyte Esterase (test code = 43917-0) TRACE NEGATIV E H [facility] TomballUrine Pdlqlzg3039-60-51 08:20:00* Test Item Value Reference Range Interpretation Comments Urine Nitrite (test code = 03114-5) NEGATIVE NEGATIVE [facility] TomballUrine Irfhirc1419-05-51 08:20:00* Test Item Value Reference Range Interpretation Comments Urine Protein (test code = 89730-0) 3+ NEGATIVE H [facility] TomballUrine Glucose (UA)2018-11-11 08:20:00* Test Item Value Reference Range Interpretation Comments Urine Glucose (UA) (test code = 93494-9) 1+ NEGATIVE H [facility] TomballUrine Zfxgpfz7386-50-65 08:20:00* Test Item Value Reference Range Interpretation Comments Urine Ketones (test code = 83238-1) NEGATIVE NEGATIVE [facility] Rlkvkvhdtwmy1745-50-59 08:20:00* Test Item Value Reference Range Interpretation Comments Urine Urobilinogen (test code = 05382-5) 0.2 0.2-1 [facility] TomballUrine Szmplgxgj9444-28-47 08:20:00* Test Item Value Reference Range Interpretation Comments Urine Bilirubin (test code = 1977-8) NEGATIVE NEGATIVE [facility] Idbsx4697-52-38 08:20:00* Test Item Value Reference Range Interpretation Comments Urine Blood (test code = 33693-3) 3+ [facility]GATIVE [facility] Upjhx5709-27-93 08:04:00* Test Item Value Reference Range Interpretation Comments Sodium Level (test code = 2951-2) 137 136-145 [facility] TomballPotassium Fgedt5829-82-39 08:04:00* Test Item Value Reference Range Interpretation Comments Potassium Level (test code = 2823-3) 4.8 3.5-5.1 [facility] TomballChloride Jtzec6965-39-80 08:04:00* Test Item Value Reference Range Interpretation Comments Chloride Level (test code = 2075-0) 109 98-107 H [facility] TomballCarbon Dioxide Vrdap7738-08-20 08:04:00* Test Item Value Reference Range Interpretation Comments Carbon Dioxide Level (test code = 2028-9) 18 22-29 L [facility] TomballAnion Vke3569-34-08 08:04:00* Test Item Value Reference Range Interpretation Comments Anion Gap (test code = 77282-9) 14.8 8-16 [facility] TomballBlood Urea Mmgoavws2484-88-52 08:04:00* Test Item Value Reference Range Interpretation Comments Blood Urea Nitrogen (test code = 3094-0) 35 7-26 H [facility] TomballCreatinine2019-09-19 08:04:00* Test Item Value Reference Range Interpretation Comments Creatinine (test code = 2160-0) 3.89 0.72-1.25 H [facility] TomballBUN/Creatinine Cxppc6436-07-81 08:04:00* Test Item Value Reference Range Interpretation Comments BUN/Creatinine Ratio (test code = 3097-3) 9 6-25 [facility] TomballEstimat Glomerular Filtration Rate 2018-11-11 08:04:00* Test Item Value Reference Range Interpretation Comments Estimat Glomerular Filtration Rate (test code = 340929123) 17 >60 L Ranges were taken from the National Kidney Disease Education Program and the [employer] literature.Reference ranges:60 or greater: Agyutd67-63 ( for 3 consecutive months): Chronic kidney disease 15 or less: Kidney failureHCA [facility] Healthcare TomballGlucose Bbdzf5359-71-14 08:04:00* Test Item Value Reference Range Interpretation Comments Glucose Level (test code = MDD3787) 146 74-118 H [facility] TomballCalcium Lhhyf0474-45-77 08:04:00* Test Item Value Reference Range Interpretation Comments Calcium Level (test code = 68127-9) 9.0 8.4-10.2 [facility] TomballTotal Thhbtwfco2702-77-61 08:04:00* Test Item Value Reference Range Interpretation Comments Total Bilirubin (test code = 1975-2) 0.6 0.2-1.2 [facility] TomballAspartate Amino Transf (AST/SGOT) 2018-11-11 08:04:00* Test Item Value Reference Range Interpretation Comments Aspartate Amino Transf (AST/SGOT) (test code = Aspartate Amino Transf (AST/SGOT)) 14 5-34 [facility] TomballAlanine Aminotransferase (ALT/SGPT) 2018-11-11 08:04:00* Test Item Value Reference Range Interpretation Comments Alanine Aminotransferase (ALT/SGPT) (test code = 1742-6) 9 0-55 [facility] TomballTotal Mxejuro7999-55-78 08:04:00* Test Item Value Reference Range Interpretation Comments Total Protein (test code = 2885-2) 7.9 6.5-8.1 [facility]ballAlbumin[facility] 08:04:00* Test Item Value Reference Range Interpretation Comments Albumin (test code = 1751-7) 3.2 3.5-5.0 L [facility]ballGlobulin2019-09-19 08:04:00* Test Item Value Reference Range Interpretation Comments Globulin (test code = 18181-9) 4.7 2.3-3.5 H [facility] TomballAlbumin/Globulin Wucmw4212-62-15 08:04:00 * Test Item Value Reference Range Interpretation Comments Albumin/Globulin Ratio (test code = 1759-0) 0.7 0.8-2.0 L [facility] TomballAlkaline Dwkystrzjcb9164-07-10 08:04:00* Test Item Value Reference Range Interpretation Comments Alkaline Phosphatase (test code = 6768-6) 202 40-150 H [facility] TomballTotal Kbqaadmiz4477-48-98 08:04:00* Test Item Value Reference Range Interpretation Comments Total Bilirubin (test code = 1975-2) 0.6 0.2-1.2 [facility] TomballAspartate Amino Transf (AST/SGOT) 2018-11-11 08:04:00* Test Item Value Reference Range Interpretation Comments Aspartate Amino Transf (AST/SGOT) (test code = Aspartate Amino Transf (AST/SGOT)) 14 5-34 [facility] TomballAlanine Aminotransferase (ALT/SGPT) 2018-11-11 08:04:00* Test Item Value Reference Range Interpretation Comments Alanine Aminotransferase (ALT/SGPT) (test code = 1742-6) 9 0-55 [facility] Vjxrcyb9338-51-40 08:04:00* Test Item Value Reference Range Interpretation Comments Total Protein (test code = 2885-2) 7.9 6.5-8.1 [facility]ballGlobulin2019-09-19 08:04:00* Test Item Value Reference Range Interpretation Comments Globulin (test code = 63621-4) 4.7 2.3-3.5 H [facility] TomballAlbumin/Globulin Xexlv4766-50-11 08:04:00 * Test Item Value Reference Range Interpretation Comments Albumin/Globulin Ratio (test code = 1759-0) 0.7 0.8-2.0 L [facility] TomballAlkaline Ykzakaczrea1821-74-31 08:04:00* Test Item Value Reference Range Interpretation Comments Alkaline Phosphatase (test code = 6768-6) 202 40-150 H [facility] TomballTotal Konksuvry2929-30-35 08:04:00* Test Item Value Reference Range Interpretation Comments Total Bilirubin (test code = 1975-2) 0.6 0.2-1.2 [facility] TomballAspartate Amino Transf (AST/SGOT) 2018-11-11 08:04:00* Test Item Value Reference Range Interpretation Comments Aspartate Amino Transf (AST/SGOT) (test code = Aspartate Amino Transf (AST/SGOT)) 14 5-34 [facility]ballAlanine Aminotransferase (ALT/SGPT) 2018-11-11 08:04:00* Test Item Value Reference Range Interpretation Comments Alanine Aminotransferase (ALT/SGPT) (test code = 1742-6) 9 0-55 [facility]ballTotal Hxjndac7564-55-74 08:04:00* Test Item Value Reference Range Interpretation Comments Total Protein (test code = 2885-2) 7.9 6.5-8.1 [facility] TomballGlobulin2019-09-19 08:04:00* Test Item Value Reference Range Interpretation Comments Globulin (test code = 39083-0) 4.7 2.3-3.5 H [facility] TomballAlbumin/Globulin Ovbku7693-69-41 08:04:00 * Test Item Value Reference Range Interpretation Comments Albumin/Globulin Ratio (test code = 1759-0) 0.7 0.8-2.0 L [facility] TomballAlkaline Nbkrmodsjfh8623-69-02 08:04:00* Test Item Value Reference Range Interpretation Comments Alkaline Phosphatase (test code = 6768-6) 202 40-150 H [facility] TomballWhite Blood Mtiss9097-31-83 07:49:00* Test Item Value Reference Range Interpretation Comments White Blood Count (test code = 6690-2) 6.09 4.8-10.8 [facility] TomballRed Blood Wbofn4953-64-03 07:49:00* Test Item Value Reference Range Interpretation Comments Red Blood Count (test code = 789-8) 4.56 4.3-5.7 [facility] TomballHemoglobin2019-09-19 07:49:00* Test Item Value Reference Range Interpretation Comments Hemoglobin (test code = 20987-8) 12.7 14.0-18.0 L [facility] TomballHematocrit2019-09-19 07:49:00* Test Item Value Reference Range Interpretation Comments Hematocrit (test code = 4544-3) 38.6 38.2-49.6 [facility] TomballMean Corpuscular Zpjosn1509-70-53 07:49:00* Test Item Value Reference Range Interpretation Comments Mean Corpuscular Volume (test code = 787-2) 84.6 81-99 [facility] TomballMean Corpuscular Vtqwranoxf3181-20-43 07:49:00* Test Item Value Reference Range Interpretation Comments Mean Corpuscular Hemoglobin (test code = 785-6) 27.9 28-32 L [facility] TomballMean Corpuscular Hemoglobin Concent 2018-11-11 07:49:00* Test Item Value Reference Range Interpretation Comments Mean Corpuscular Hemoglobin Concent (test code = 786-4) 32.9 31-35 [facility] TomballRed Cell Distribution Gjrar1012-60-88 07:49:00* Test Item Value Reference Range Interpretation Comments Red Cell Distribution Width (test code = 21531-3) 15.5 11.7 -14.4 H [facility] TomballPlatelet Njnzm3633-07-29 07:49:00* Test Item Value Reference Range Interpretation Comments Platelet Count (test code = 777-3) 140 140-360 [facility] TomballNeutrophils (%) (Auto)2018-11-11 07:49:00 * Test Item Value Reference Range Interpretation Comments Neutrophils (%) (Auto) (test code = 84174-0) 74.1 38.7-80.0 [facility] TomballLymphocytes (%) (Auto)2018-11-11 07:49:00 * Test Item Value Reference Range Interpretation Comments Lymphocytes (%) (Auto) (test code = 736-9) 18.2 18.0-39.1 [facility] TomballMonocytes (%) (Auto)2018-11-11 07:49:00* Test Item Value Reference Range Interpretation Comments Monocytes (%) (Auto) (test code = 5905-5) 4.9 4.4-11.3 [facility]ballEosinophils (%) (Auto)2018-11-11 07:49:00 * Test Item Value Reference Range Interpretation Comments Eosinophils (%) (Auto) (test code = 713-8) 2.0 0.0-6.0 [facility]ballBasophils (%) (Auto)2018-11-11 07:49:00* Test Item Value Reference Range Interpretation Comments Basophils (%) (Auto) (test code = 706-2) 0.3 0.0-1.0 [facility] TomballIM GRANULOCYTES %2018-11-11 07:49:00* Test Item Value Reference Range Interpretation Comments IM GRANULOCYTES % (test code = IM GRANULOCYTES %) 0.5 0.0- 1.0 [facility] TomballNeutrophils # (Auto)2018-11-11 07:49:00* Test Item Value Reference Range Interpretation Comments Neutrophils # (Auto) (test code = 751-8) 4.5 2.1-6.9 [facility] TomballLymphocytes # (Auto)2018-11-11 07:49:00* Test Item Value Reference Range Interpretation Comments Lymphocytes # (Auto) (test code = 85265-8) 1.1 1.0-3.2 [facility]ballMonocytes # (Auto)2018-11-11 07:49:00* Test Item Value Reference Range Interpretation Comments Monocytes # (Auto) (test code = 742-7) 0.3 0.2-0.8 [facility]ballEosinophils # (Auto)2018-11-11 07:49:00* Test Item Value Reference Range Interpretation Comments Eosinophils # (Auto) (test code = 711-2) 0.1 0.0-0.4 [facility]ballBasophils # (Auto)2018-11-11 07:49:00* Test Item Value Reference Range Interpretation Comments Basophils # (Auto) (test code = 704-7) 0.0 0.0-0.1 [facility] TomballAbsolute Immature Granulocyte (auto 2018-11-11 07:49:00* Test Item Value Reference Range Interpretation Comments Absolute Immature Granulocyte (auto (shin t code = Absolute Immature Granulocyte (auto) 0.03 0-0.1 [facility] TomballFluoroscopic procedure less than one hour jzejoblj6122-03-65 07:22:00* Test Item Value Reference Range Interpretation Comments Differential Total Cells Counted (test code = Brian tial Total Cells Counted) 100 [facility] blood neutrophils/100 leukocytes 2018-11-11 07:22:00* Test Item Value Reference Range Interpretation Comments Neutrophils % (Manual) (test code = 71097-9) 74 40-74 [facility] blood lymphocytes/100 leukocytes 2018-11-11 07:22:00* Test Item Value Reference Range Interpretation Comments Lymphocytes % (Manual) (test code = 737-7) 19 19-48 [facility] blood monocytes/100 leukocytes 2018-11-11 07:22:00* Test Item Value Reference Range Interpretation Comments Monocytes % (Manual) (test code = 744-3) 5 3.4-9.0 [facility] blood eosinophil count as percentage of total xfxdcqhjdf8990-27-07 07:22:00* Test Item Value Reference Range Interpretation Comments Eosinophils % (Manual) (test code = 714-6) 2 0-7 [facility]Bl[facility] platelets count by estimate (number/volume)2018-11-11 07:22:00* Test Item Value Reference Range Interpretation Comments Platelet Estimate (test code = 47317-8) MODERATELY DECREASED [facility] TomballPlatelet rtskbeiput2421-65-59 07:22:00* Test Item Value Reference Range Interpretation Comments Platelet Morphology Comment (test code = 71441-9) FEW LARGE NO PLT CLUMPSHCA [facility] Healthcare TomballRBC uhuljatdts3065-04-41 07:22:00* Test Item Value Reference Range Interpretation Comments Red Cell Morphology Comment (test code = 6742-1) NORMAL [facility] TomballFluoroscopic procedure less than one hour xthfdbuz5129-74-05 07:22:00* Test Item Value Reference Range Interpretation Comments Differential Total Cells Counted (test code = Differomar tial Total Cells Counted) 100 [facility] blood neutrophils/100 leukocytes 2018-11-11 07:22:00* Test Item Value Reference Range Interpretation Comments Neutrophils % (Manual) (test code = 50710-5) 74 40-74 [facility] blood lymphocytes/100 leukocytes 2018-11-11 07:22:00* Test Item Value Reference Range Interpretation Comments Lymphocytes % (Manual) (test code = 737-7) 19 19-48 [facility] blood monocytes/100 leukocytes 2018-11-11 07:22:00* Test Item Value Reference Range Interpretation Comments Monocytes % (Manual) (test code = 744-3) 5 3.4-9.0 [facility] blood eosinophil count as percentage of total qlnvcytcxa9162-66-79 07:22:00* Test Item Value Reference Range Interpretation Comments Eosinophils % (Manual) (test code = 714-6) 2 0-7 [facility] platelets count by estimate (number/volume)2018-11-11 07:22:00* Test Item Value Reference Range Interpretation Comments Platelet Estimate (test code = 80662-9) MODERATELY DECREASED [facility] pnbxazbrvg4668-98-28 07:22:00* Test Item Value Reference Range Interpretation Comments Platelet Morphology Comment (test code = 50614-6) FEW LARGE NO PLT CLUMPSHCA [facility] Healthcare TomballRBC dvvcfajsig2467-76-53 07:22:00* Test Item Value Reference Range Interpretation Comments Red Cell Morphology Comment (test code = 6742-1) NORMAL [facility] Lmvppep6800-41-25 07:37:00* Test Item Value Reference Range Interpretation Comments Bedside Glucose (test code = 80808-7) 160 70-120 H Meter ID: [id number] Glucose 2018-11-08 07:37:00* Test Item Value Reference Range Interpretation Comments Bedside Glucose (test code = 29549-5) 160 70-120 H Meter ID: [id number] [facility] Healthcare TomballDifferential Total Cells Eiueycg0656-55-82 06:23:00* Test Item Value Reference Range Interpretation Comments Differential Total Cells Counted (test code = Differomar tial Total Cells Counted) 100 [facility] TomballNeutrophils % (Manual)2018-11-08 06:23:00 * Test Item Value Reference Range Interpretation Comments Neutrophils % (Manual) (test code = 27616-6) 71 40-74 [facility] TomballLymphocytes % (Manual)2018-11-08 06:23:00 * Test Item Value Reference Range Interpretation Comments Lymphocytes % (Manual) (test code = 737-7) 17 19-48 L [facility] TomballMonocytes % (Manual)2018-11-08 06:23:00* Test Item Value Reference Range Interpretation Comments Monocytes % (Manual) (test code = 744-3) 9 3.4-9.0 [facility]ballEosinophils % (Manual)2018-11-08 06:23:00 * Test Item Value Reference Range Interpretation Comments Eosinophils % (Manual) (test code = 714-6) 3 0-7 [facility] TomballPlatelet Rqtkbtza1734-73-69 06:23:00* Test Item Value Reference Range Interpretation Comments Platelet Estimate (test code = 81004-6) MARKEDLY INCREASED [facility] TomballPlatelet Morphology Uzguuvf4657-38-35 06:23:00* Test Item Value Reference Range Interpretation Comments Platelet Morphology Comment (test code = 57927-1) FEW LARGE [facility] TomballRed Cell Morphology Ukwezut8810-22-97 06:23:00* Test Item Value Reference Range Interpretation Comments Red Cell Morphology Comment (test code = 6742-1) [facility] Fgbdx5101-15-96 05:37:00* Test Item Value Reference Range Interpretation Comments Sodium Level (test code = 2951-2) 135 136-145 L [facility] TomballPotassium Odahb3727-07-89 05:37:00* Test Item Value Reference Range Interpretation Comments Potassium Level (test code = 2823-3) 4.6 3.5-5.1 [facility] TomballChloride Linpy9573-02-50 05:37:00* Test Item Value Reference Range Interpretation Comments Chloride Level (test code = 2075-0) 106 98-107 [facility] TomballCarbon Dioxide Avegv5980-72-49 05:37:00* Test Item Value Reference Range Interpretation Comments Carbon Dioxide Level (test code = 2028-9) 19 22-29 L [facility] TomballAnion Avf4514-66-74 05:37:00* Test Item Value Reference Range Interpretation Comments Anion Gap (test code = 17059-2) 14.6 8-16 [facility] TomballBlood Urea Ojprglvi0927-53-43 05:37:00* Test Item Value Reference Range Interpretation Comments Blood Urea Nitrogen (test code = 3094-0) 30 7-26 H [facility] TomballCreatinine2019-09-16 05:37:00* Test Item Value Reference Range Interpretation Comments Creatinine (test code = 2160-0) 3.35 0.72-1.25 H [facility] TomballBUN/Creatinine Fcvcf9382-81-67 05:37:00* Test Item Value Reference Range Interpretation Comments BUN/Creatinine Ratio (test code = 3097-3) 9 6-25 [facility] TomballEstimat Glomerular Filtration Rate 2018-11-08 05:37:00* Test Item Value Reference Range Interpretation Comments Estimat Glomerular Filtration Rate (test code = 467150598) 21 >60 L Ranges were taken from the National Kidney Disease Education Program and the [facility] Kidney Foundation literature.Reference ranges:60 or greater: Dxgkhc88-58 ( for 3 consecutive months): Chronic kidney disease 15 or less: Kidney failureHCA Houston Healthcare TomballGlucose Hnxkc7291-09-78 05:37:00* Test Item Value Reference Range Interpretation Comments Glucose Level (test code = JDE3917) 125 74-118 H [facility] TomballCalcium Oncki1294-73-13 05:37:00* Test Item Value Reference Range Interpretation Comments Calcium Level (test code = 00886-1) 8.4 8.4-10.2 [facility] TomballWhite Blood Bcqef3496-41-24 05:26:00* Test Item Value Reference Range Interpretation Comments White Blood Count (test code = 6690-2) 4.49 4.8-10.8 L [facility] TomballRed Blood Ytacc3176-16-07 05:26:00* Test Item Value Reference Range Interpretation Comments Red Blood Count (test code = 789-8) 3.94 4.3-5.7 L [facility] TomballHemoglobin2019-09-16 05:26:00* Test Item Value Reference Range Interpretation Comments Hemoglobin (test code = 32477-8) 11.0 14.0-18.0 L [facility] TomballHematocrit2019-09-16 05:26:00* Test Item Value Reference Range Interpretation Comments Hematocrit (test code = 4544-3) 34.1 38.2-49.6 L [facility] TomballMean Corpuscular Lgfhlt8035-95-11 05:26:00* Test Item Value Reference Range Interpretation Comments Mean Corpuscular Volume (test code = 787-2) 86.5 81-99 [facility] TomballMean Corpuscular Okvjukksaj8358-74-67 05:26:00* Test Item Value Reference Range Interpretation Comments Mean Corpuscular Hemoglobin (test code = 785-6) 27.9 28-32 L [facility] TomballMean Corpuscular Hemoglobin Concent 2018-11-08 05:26:00* Test Item Value Reference Range Interpretation Comments Mean Corpuscular Hemoglobin Concent (test code = 786-4) 32.3 31-35 [facility] TomballRed Cell Distribution Xanqi4331-77-02 05:26:00* Test Item Value Reference Range Interpretation Comments Red Cell Distribution Width (test code = 54158-8) 15.9 11.7 -14.4 H [facility] TomballPlatelet Njqca0472-83-15 05:26:00* Test Item Value Reference Range Interpretation Comments Platelet Count (test code = 777-3) 101 140-360 L [facility] TomballNeutrophils (%) (Auto)2018-11-08 05:26:00 * Test Item Value Reference Range Interpretation Comments Neutrophils (%) (Auto) (test code = 24935-6) 59.0 38.7-80.0 [facility] TomballLymphocytes (%) (Auto)2018-11-08 05:26:00 * Test Item Value Reference Range Interpretation Comments Lymphocytes (%) (Auto) (test code = 736-9) 27.4 18.0-39.1 [facility] TomballMonocytes (%) (Auto)2018-11-08 05:26:00* Test Item Value Reference Range Interpretation Comments Monocytes (%) (Auto) (test code = 5905-5) 7.6 4.4-11.3 [facility]ballEosinophils (%) (Auto)2018-11-08 05:26:00 * Test Item Value Reference Range Interpretation Comments Eosinophils (%) (Auto) (test code = 713-8) 4.9 0.0-6.0 [facility] TomballBasophils (%) (Auto)2018-11-08 05:26:00* Test Item Value Reference Range Interpretation Comments Basophils (%) (Auto) (test code = 706-2) 0.7 0.0-1.0 [facility] TomballIM GRANULOCYTES %2018-11-08 05:26:00* Test Item Value Reference Range Interpretation Comments IM GRANULOCYTES % (test code = IM GRANULOCYTES %) 0.4 0.0- 1.0 [facility] TomballNeutrophils # (Auto)2018-11-08 05:26:00* Test Item Value Reference Range Interpretation Comments Neutrophils # (Auto) (test code = 751-8) 2.7 2.1-6.9 [facility]ballLymphocytes # (Auto)2018-11-08 05:26:00* Test Item Value Reference Range Interpretation Comments Lymphocytes # (Auto) (test code = 38774-1) 1.2 1.0-3.2 [facility]ballMonocytes # (Auto)2018-11-08 05:26:00* Test Item Value Reference Range Interpretation Comments Monocytes # (Auto) (test code = 742-7) 0.3 0.2-0.8 [facility]ballEosinophils # (Auto)2018-11-08 05:26:00* Test Item Value Reference Range Interpretation Comments Eosinophils # (Auto) (test code = 711-2) 0.2 0.0-0.4 [facility]ballBasophils # (Auto)2018-11-08 05:26:00* Test Item Value Reference Range Interpretation Comments Basophils # (Auto) (test code = 704-7) 0.0 0.0-0.1 [facility] TomballAbsolute Immature Granulocyte (auto 2018-11-08 05:26:00* Test Item Value Reference Range Interpretation Comments Absolute Immature Granulocyte (auto (shin t code = Absolute Immature Granulocyte (auto) 0.02 0-0.1 [facility] TomballMagnesium Lczcx9834-33-52 07:21:00* Test Item Value Reference Range Interpretation Comments Magnesium Level (test code = 75140-0) 1.5 1.3-2.1 [facility] TomballMagnesium Fhvcw8021-45-75 07:21:00* Test Item Value Reference Range Interpretation Comments Magnesium Level (test code = 89131-9) 1.5 1.3-2.1 [facility] TomballTotal Gppmaqygn9673-36-24 08:37:00* Test Item Value Reference Range Interpretation Comments Total Bilirubin (test code = 1975-2) 0.5 0.2-1.2 [facility] TomballAspartate Amino Transf (AST/SGOT) 2018-11-05 08:37:00* Test Item Value Reference Range Interpretation Comments Aspartate Amino Transf (AST/SGOT) (test code = Aspartate Amino Transf (AST/SGOT)) 12 5-34 [facility] TomballAlanine Aminotransferase (ALT/SGPT) 2018-11-05 08:37:00* Test Item Value Reference Range Interpretation Comments Alanine Aminotransferase (ALT/SGPT) (test code = 1742-6) 14 0-55 [facility] TomballTotal Kilqrfg8104-37-41 08:37:00* Test Item Value Reference Range Interpretation Comments Total Protein (test code = 2885-2) 7.3 6.5-8.1 [facility] TomballAlbumin2019-09-13 08:37:00* Test Item Value Reference Range Interpretation Comments Albumin (test code = 1751-7) 3.0 3.5-5.0 L [facility] TomballGlobulin2019-09-13 08:37:00* Test Item Value Reference Range Interpretation Comments Globulin (test code = 06333-1) 4.3 2.3-3.5 H [facility] TomballAlbumin/Globulin Tshem4964-51-52 08:37:00 * Test Item Value Reference Range Interpretation Comments Albumin/Globulin Ratio (test code = 1759-0) 0.7 0.8-2.0 L [facility] TomballAlkaline Zmpecpgqqgs0000-73-94 08:37:00* Test Item Value Reference Range Interpretation Comments Alkaline Phosphatase (test code = 6768-6) 200 40-150 H [facility] TomballBlood Zciftsk3789-77-09 05:38:00* Test Item Value Reference Range Interpretation Comments Blood Culture (test code = 55509136) NO GROWTH AFTER 5 DAYS, FINAL REPORT [facility] TomballBlood Tvfyzjp0902-55-08 05:38:00* Test Item Value Reference Range Interpretation Comments Blood Culture (test code = 30418412) NO GROWTH AFTER 5 DAYS, FINAL REPORT [facility] Hszixtx2760-09-90 05:38:00* Test Item Value Reference Range Interpretation Comments Blood Culture (test code = 89990661) NO GROWTH AFTER 5 DAYS, FINAL REPORT [facility] Nkedcuf2734-65-31 05:38:00* Test Item Value Reference Range Interpretation Comments Blood Culture (test code = 94926821) NO GROWTH AFTER 5 DAYS, FINAL REPORT [facility]2019-09-11 05:51:00* Test Item Value Reference Range Interpretation Comments Phosphorus Level (test code = IPH7690) 5.4 2.3-4.7 H [facility]2019-09-11 05:51:00* Test Item Value Reference Range Interpretation Comments Phosphorus Level (test code = AFT8674) 5.4 2.3-4.7 H [facility]2019-09-09 06:18:00* Test Item Value Reference Range Interpretation Comments Iron Level (test code = 2498-4) 50 65-175 L [facility] TomballTotal Iron Binding Nkemmuwn4712-59-67 06:18:00* Test Item Value Reference Range Interpretation Comments Total Iron Binding Capacity (test code = 2500-7) 232 261-4 78 L [facility] TomballPercent Iron Xedtwrgvxr3032-29-71 06:18:00* Test Item Value Reference Range Interpretation Comments Percent Iron Saturation (test code = 2502-3) 22 15-50 [facility] TomballTransferrin2019-09-09 06:18:00* Test Item Value Reference Range Interpretation Comments Transferrin (test code = 3034-6) 166 174-364 L [facility] Jxvzp5875-72-21 06:18:00* Test Item Value Reference Range Interpretation Comments Iron Level (test code = 2498-4) 50 65-175 L [facility] TomballTotal Iron Binding Noockcmz4938-21-43 06:18:00* Test Item Value Reference Range Interpretation Comments Total Iron Binding Capacity (test code = 2500-7) 232 261-4 78 L [facility] TomballPercent Iron Fawakelavc0194-76-38 06:18:00* Test Item Value Reference Range Interpretation Comments Percent Iron Saturation (test code = 2502-3) 22 -50 [facility] TomballTransferrin2019-09-09 06:18:00* Test Item Value Reference Range Interpretation Comments Transferrin (test code = 3034-6) 166 174-364 L [facility]2019-09-09 06:18:00* Test Item Value Reference Range Interpretation Comments Iron Level (test code = 2498-4) 50 65-175 L [facility] TomballTotal Iron Binding Flsetili8151-68-87 06:18:00* Test Item Value Reference Range Interpretation Comments Total Iron Binding Capacity (test code = 2500-7) 232 261-4 78 L [facility] TomballPercent Iron Ktyeadyhwp5781-80-31 06:18:00* Test Item Value Reference Range Interpretation Comments Percent Iron Saturation (test code = 2502-3) 50 [facility]2019-09-09 06:18:00* Test Item Value Reference Range Interpretation Comments Transferrin (test code = 3034-6) 166 174-364 L [facility]2019-09-09 06:18:00* Test Item Value Reference Range Interpretation Comments Iron Level (test code = 2498-4) 50 65-175 L [facility] Iron Binding Zehyxins5230-32-78 06:18:00* Test Item Value Reference Range Interpretation Comments Total Iron Binding Capacity (test code = 2500-7) 232 261-4 78 L [facility] TomballPercent Iron Nfajodgick0858-30-06 06:18:00* Test Item Value Reference Range Interpretation Comments Percent Iron Saturation (test code = 2502-3) 50 [facility] TomballTransferrin2019-09-09 06:18:00* Test Item Value Reference Range Interpretation Comments Transferrin (test code = 3034-6) 166 174-364 L [facility] TomballUrine RAF1082-45-02 15:35:00* Test Item Value Reference Range Interpretation Comments Urine WBC (test code = 5821-4) >50 0-5 H [facility] TomballUrine OOG6702-06-70 15:35:00* Test Item Value Reference Range Interpretation Comments Urine RBC (test code = 68551-6) >50 0-5 H [facility]ballUrine Mykeqbwl7521-68-16 15:35:00* Test Item Value Reference Range Interpretation Comments Urine Bacteria (test code = 77608-6) MANY NONE H [facility]ballUrine Epithelial Bjuko3358-41-92 15:35:00 * Test Item Value Reference Range Interpretation Comments Urine Epithelial Cells (test code = 68699-1) MANY NONE [facility]ballU[facility] Dibid3326-66-08 15:11:00* Test Item Value Reference Range Interpretation Comments Urine Color (test code = 5778-6) YELLOW YELLOW [facility]ballUrine Urzowfr2288-87-05 15:11:00* Test Item Value Reference Range Interpretation Comments Urine Clarity (test code = 59840-7) SL CLOUDY CLEAR H [facility] TomballUrine Specific Yfexqos6822-35-18 15:11:00 * Test Item Value Reference Range Interpretation Comments Urine Specific [place] (test code = 5811-5) 1.025 1.010-1.02 5 [facility] TomballUrine jF1755-60-77 15:11:00* Test Item Value Reference Range Interpretation Comments Urine pH (test code = 81622-4) 6 5-7 [facility]ballU[facility] Leukocyte Ejsdfkpk9543-47-99 15:11:00* Test Item Value Reference Range Interpretation Comments Urine Leukocyte Esterase (test code = 20975-5) NEGATIVE NEGATIV E [facility] TomballUrine Cyyfawq4880-39-36 15:11:00* Test Item Value Reference Range Interpretation Comments Urine Nitrite (test code = 85887-6) NEGATIVE NEGATIVE [facility]ballU[facility] Mreuwpr3732-57-68 15:11:00* Test Item Value Reference Range Interpretation Comments Urine Protein (test code = 35492-1) 3+ NEGATIVE H [facility]ballUrine Glucose (UA)2018-10-31 15:11:00* Test Item Value Reference Range Interpretation Comments Urine Glucose (UA) (test code = 25095-7) NEGATIVE NEGATIVE [facility]ballUrine Awjxffy1128-27-59 15:11:00* Test Item Value Reference Range Interpretation Comments Urine Ketones (test code = 66139-2) NEGATIVE NEGATIVE [facility]ballU[facility] Nzkvqlttxogo3025-92-19 15:11:00* Test Item Value Reference Range Interpretation Comments Urine Urobilinogen (test code = 62820-9) 0.2 0.2-1 [facility]ballUrine Ladaenbmu0639-20-07 15:11:00* Test Item Value Reference Range Interpretation Comments Urine Bilirubin (test code = 1977-8) NEGATIVE NEGATIVE [facility]ballUrine Vddjw5138-38-27 15:11:00* Test Item Value Reference Range Interpretation Comments Urine Blood (test code = 38607-5) 3+ NEGATIVE [facility] TomballCreatine Kinase FQ2783-73-19 08:40:00* Test Item Value Reference Range Interpretation Comments Creatine Kinase MB (test code = 57947-0) 1.60 0-5.0 [facility] TomballTroponin M6040-32-24 08:40:00* Test Item Value Reference Range Interpretation Comments Troponin I (test code = ZDF2893) 0.008 0-0.300 [facility] TomballCreatine Kinase OL8289-94-03 08:40:00* Test Item Value Reference Range Interpretation Comments Creatine Kinase MB (test code = 82858-4) 1.60 0-5.0 [facility] TomballTroponin M9673-75-46 08:40:00* Test Item Value Reference Range Interpretation Comments Troponin I (test code = ZPH6590) 0.008 0-0.300 [facility] TomballCreatine Kinase DC2872-96-46 08:40:00* Test Item Value Reference Range Interpretation Comments Creatine Kinase MB (test code = 73571-5) 1.60 0-5.0 [facility] TomballTrformerly [facility]isPres[facility] RanchoG4492-45-86 08:40:00* Test Item Value Reference Range Interpretation Comments Troponin I (test code = FYE7438) 0.008 0-0.300 [facility] TomballCreatine Kinase YT7803-03-67 08:40:00* Test Item Value Reference Range Interpretation Comments Creatine Kinase MB (test code = 13674-7) 1.60 0-5.0 [place] [address]2019-09-08 08:40:00* Test Item Value Reference Range Interpretation Comments Troponin I (test code = KCA7062) 0.008 0-0.300 [facility] TomballCreatine Kinase QC8827-34-23 08:40:00* Test Item Value Reference Range Interpretation Comments Creatine Kinase MB (test code = 22226-7) 1.60 0-5.0 [place] [address]2019-09-08 08:40:00* Test Item Value Reference Range Interpretation Comments Troponin I (test code = EWH6068) 0.008 0-0.300 [facility] TomballCreatine Kinase RM2910-62-82 08:40:00* Test Item Value Reference Range Interpretation Comments Creatine Kinase MB (test code = 71202-1) 1.60 0-5.0 [place] [address]2019-09-08 08:40:00* Test Item Value Reference Range Interpretation Comments Troponin I (test code = 93609-2) 0.008 0-0.300 [facility] TomballCreatine Kinase BZ2021-85-21 08:40:00* Test Item Value Reference Range Interpretation Comments Creatine Kinase MB (test code = 61970-6) 1.60 0-5.0 [place] [address]2019-09-08 08:40:00* Test Item Value Reference Range Interpretation Comments Troponin I (test code = 60680-8) 0.008 0-0.300 [facility] TomballCreatine Smryzz3953-00-22 07:55:00* Test Item Value Reference Range Interpretation Comments Creatine Kinase (test code = 2157-6) 266 30-200 H [facility] TomballCreatine Wdrltr1525-14-85 07:55:00* Test Item Value Reference Range Interpretation Comments Creatine Kinase (test code = 2157-6) 266 30-200 H [facility] TomballCreatine Kfyaqy5958-43-92 07:55:00* Test Item Value Reference Range Interpretation Comments Creatine Kinase (test code = 2157-6) 266 30-200 H [facility] TomballCreatine Avgqgl5690-73-22 07:55:00* Test Item Value Reference Range Interpretation Comments Creatine Kinase (test code = 2157-6) 266 30-200 H [facility] TomballCreatine Naztyf9424-73-12 07:55:00* Test Item Value Reference Range Interpretation Comments Creatine Kinase (test code = 2157-6) 266 30-200 H [facility] TomballCreatine Akqnjq0283-10-23 07:55:00* Test Item Value Reference Range Interpretation Comments Creatine Kinase (test code = 2157-6) 266 30-200 H [facility] TomballCreatine Tszxxe0572-71-67 07:55:00* Test Item Value Reference Range Interpretation Comments Creatine Kinase (test code = 2157-6) 266 30-200 H [facility] TomballCT ABDOMEN/PELVIS GM6827-77-35 02:46:00 [facility] [address] [place] [address] Patient Name: MANJIT LUO MR #: [id number] : 1980 Age/Sex: 38/M Req #: [id number] Adm Physician: Ordered by: BEV FLORES MD Report #: [id number] Location: ER Room/Bed: Procedure: [id number] CT/CT ABDOMEN/PELVIS WO Exam Date: 10/31/18 Exam [...] 10/31/18252 COPY TO: BEV FLORES MD Bedside Kbvllzm7074-56-66 07:32:00* Test Item Value Reference Range Interpretation Comments Bedside Glucose (test code = 96684-2) 106 70-120 Meter ID: [id number] Medical Centerodium Level 2018-10-29 07:01:00* Test Item Value Reference Range Interpretation Comments Sodium Level (test code = 2951-2) 138 136-145 [facility] TomballPotassium Jhuhn8405-90-80 07:01:00* Test Item Value Reference Range Interpretation Comments Potassium Level (test code = 2823-3) 4.5 3.5-5.1 [facility] TomballChloride Yguue2765-96-98 07:01:00* Test Item Value Reference Range Interpretation Comments Chloride Level (test code = 2075-0) 103 98-107 [facility] TomballCarbon Dioxide Tseib1338-45-76 07:01:00* Test Item Value Reference Range Interpretation Comments Carbon Dioxide Level (test code = 2028-9) 24 22-29 [facility] TomballAnion Puh9558-28-72 07:01:00* Test Item Value Reference Range Interpretation Comments Anion Gap (test code = 82684-0) 15.5 8-16 [facility] TomballBlood Urea Fipkwdrv0941-07-47 07:01:00* Test Item Value Reference Range Interpretation Comments Blood Urea Nitrogen (test code = 3094-0) 29 7-26 H [facility] TomballCreatinine2019-09-06 07:01:00* Test Item Value Reference Range Interpretation Comments Creatinine (test code = 2160-0) 3.71 0.72-1.25 H [facility] TomballBUN/Creatinine Tilap9976-06-96 07:01:00* Test Item Value Reference Range Interpretation Comments BUN/Creatinine Ratio (test code = 3097-3) 8 6-25 [facility] TomballEstimat Glomerular Filtration Rate 2018-10-29 07:01:00* Test Item Value Reference Range Interpretation Comments Estimat Glomerular Filtration Rate (test code = 718524369) 18 >60 L Ranges were taken from the National Kidney Disease Education Program and the [employer] literature.Reference ranges:60 or greater: Dsovns54-25 ( for 3 consecutive months): Chronic kidney disease 15 or less: Kidney failureHCA [facility] Healthcare TomballGlucose Vsgfo5924-98-34 07:01:00* Test Item Value Reference Range Interpretation Comments Glucose Level (test code = UXC2191) 104 74-118 [facility] TomballCalcium Rdaba4373-08-59 07:01:00* Test Item Value Reference Range Interpretation Comments Calcium Level (test code = 48114-2) 8.2 8.4-10.2 L [facility] TomballWhite Blood Zaqzm5290-26-34 06:31:00* Test Item Value Reference Range Interpretation Comments White Blood Count (test code = 6690-2) 5.14 4.8-10.8 [facility] TomballRed Blood Mrkby5838-01-33 06:31:00* Test Item Value Reference Range Interpretation Comments Red Blood Count (test code = 789-8) 3.56 4.3-5.7 L [facility] TomballHemoglobin2019-09-06 06:31:00* Test Item Value Reference Range Interpretation Comments Hemoglobin (test code = 98241-8) 9.8 14.0-18.0 L [facility] TomballHematocrit2019-09-06 06:31:00* Test Item Value Reference Range Interpretation Comments Hematocrit (test code = 4544-3) 30.4 38.2-49.6 L [facility] TomballMean Corpuscular Npxyco2305-43-75 06:31:00* Test Item Value Reference Range Interpretation Comments Mean Corpuscular Volume (test code = 787-2) 85.4 81-99 [facility] TomballMean Corpuscular Mprazxqcql5906-12-22 06:31:00* Test Item Value Reference Range Interpretation Comments Mean Corpuscular Hemoglobin (test code = 785-6) 27.5 28-32 L [facility] TomballMean Corpuscular Hemoglobin Concent 2018-10-29 06:31:00* Test Item Value Reference Range Interpretation Comments Mean Corpuscular Hemoglobin Concent (test code = 786-4) 32.2 31-35 [facility] TomballRed Cell Distribution Jhoag9115-97-41 06:31:00* Test Item Value Reference Range Interpretation Comments Red Cell Distribution Width (test code = 40422-3) 15.0 11.7 -14.4 H [facility] TomballPlatelet Rpbfn9790-36-03 06:31:00* Test Item Value Reference Range Interpretation Comments Platelet Count (test code = 777-3) 103 140-360 L [facility] TomballNeutrophils (%) (Auto)2018-10-29 06:31:00 * Test Item Value Reference Range Interpretation Comments Neutrophils (%) (Auto) (test code = 29044-7) 56.2 38.7-80.0 [facility] TomballLymphocytes (%) (Auto)2018-10-29 06:31:00 * Test Item Value Reference Range Interpretation Comments Lymphocytes (%) (Auto) (test code = 736-9) 33.7 18.0-39.1 [facility] TomballMonocytes (%) (Auto)2018-10-29 06:31:00* Test Item Value Reference Range Interpretation Comments Monocytes (%) (Auto) (test code = 5905-5) 6.2 4.4-11.3 [facility] TomballEosinophils (%) (Auto)2018-10-29 06:31:00 * Test Item Value Reference Range Interpretation Comments Eosinophils (%) (Auto) (test code = 713-8) 2.7 0.0-6.0 [facility] TomballBasophils (%) (Auto)2018-10-29 06:31:00* Test Item Value Reference Range Interpretation Comments Basophils (%) (Auto) (test code = 706-2) 0.4 0.0-1.0 [facility] TomballIM GRANULOCYTES %2018-10-29 06:31:00* Test Item Value Reference Range Interpretation Comments IM GRANULOCYTES % (test code = IM GRANULOCYTES %) 0.8 0.0- 1.0 [facility] TomballNeutrophils # (Auto)2018-10-29 06:31:00* Test Item Value Reference Range Interpretation Comments Neutrophils # (Auto) (test code = 751-8) 2.9 2.1-6.9 [facility] TomballLymphocytes # (Auto)2018-10-29 06:31:00* Test Item Value Reference Range Interpretation Comments Lymphocytes # (Auto) (test code = 76979-9) 1.7 1.0-3.2 [facility] TomballMonocytes # (Auto)2018-10-29 06:31:00* Test Item Value Reference Range Interpretation Comments Monocytes # (Auto) (test code = 742-7) 0.3 0.2-0.8 [facility] TomballEosinophils # (Auto)2018-10-29 06:31:00* Test Item Value Reference Range Interpretation Comments Eosinophils # (Auto) (test code = 711-2) 0.1 0.0-0.4 [facility] TomballBasophils # (Auto)2018-10-29 06:31:00* Test Item Value Reference Range Interpretation Comments Basophils # (Auto) (test code = 704-7) 0.0 0.0-0.1 [facility] TomballAbsolute Immature Granulocyte (auto 2018-10-29 06:31:00* Test Item Value Reference Range Interpretation Comments Absolute Immature Granulocyte (auto (shin t code = Absolute Immature Granulocyte (auto) 0.04 0-0.1 [facility] Occult Oleyb2312-78-84 16:26:00* Test Item Value Reference Range Interpretation Comments Stool Occult Blood (test code = 2335-8) NEGATIVE NEGATIVE [facility] Occult Sdzur6056-16-15 16:26:00* Test Item Value Reference Range Interpretation Comments Stool Occult Blood (test code = 2335-8) NEGATIVE NEGATIVE [facility] Occult Gepjd1735-33-80 16:26:00* Test Item Value Reference Range Interpretation Comments Stool Occult Blood (test code = 2335-8) NEGATIVE NEGATIVE [facility] Occult Qzxxg7791-96-24 16:26:00* Test Item Value Reference Range Interpretation Comments Stool Occult Blood (test code = 2335-8) NEGATIVE NEGATIVE [facility] Occult Tqevb1944-99-17 16:26:00* Test Item Value Reference Range Interpretation Comments Stool Occult Blood (test code = 2335-8) NEGATIVE NEGATIVE [facility] Occult Oyhmg6983-19-57 16:26:00* Test Item Value Reference Range Interpretation Comments Stool Occult Blood (test code = 2335-8) NEGATIVE NEGATIVE [facility] Occult Otzif1043-14-55 16:26:00* Test Item Value Reference Range Interpretation Comments Stool Occult Blood (test code = 2335-8) NEGATIVE NEGATIVE [facility] Occult Iguoy6119-50-51 16:26:00* Test Item Value Reference Range Interpretation Comments Stool Occult Blood (test code = 2335-8) NEGATIVE NEGATIVE [facility] gastrointestinal hemoglobin vsovmydec9007-67-08 15:53:00* Test Item Value Reference Range Interpretation Comments Stool Occult Blood (test code = 2335-8) NEGATIVE NEGATIVE [facility] gastrointestinal hemoglobin jfiymzjde7664-31-19 15:53:00* Test Item Value Reference Range Interpretation Comments Stool Occult Blood (test code = 2335-8) NEGATIVE NEGATIVE [facility] TomballUrine Xiwvpeg4329-21-49 07:43:00* Test Item Value Reference Range Interpretation Comments Urine Culture (test code = 630-4) Organism: PSEUDOMONAS AERUGINOSA [facility] TomballUrine Wtwerjv3788-44-98 07:43:00* Test Item Value Reference Range Interpretation Comments Urine Culture (test code = 630-4) Organism: PSEUDOMONAS AERUGINOSA [facility] Tyoulem8407-49-96 07:43:00* Test Item Value Reference Range Interpretation Comments Urine Culture (test code = 630-4) Organism: PSEUDOMONAS AERUGINOSA [facility] Gzycsle3196-24-45 07:43:00* Test Item Value Reference Range Interpretation Comments Urine Culture (test code = 630-4) No Result Data Provided [facility] Bzaxnds2546-32-20 07:43:00* Test Item Value Reference Range Interpretation Comments Urine Culture (test code = 630-4) No Result Data Provided [facility] TomballRENAL SCAN W/ENDNE5694-29-06 17:45:00 [place] [address] Patient Name: MANJIT LUO MR #: [id number] : 1980 Age/Sex: 38/M Req #: [id number] Adm Physician: ABHIJIT YODER MD Ordered by: CASTRO JALLOH MD Report #: [id number] Location: [place] [address] Room/Bed: [facility] Procedure: [id number] NM/RE NAL SCAN W/LASIX Exam Date: Exam [...] 1803 COPY TO: CASTRO JALLOH MD Urine Sxxxzef9279-92-12 14:00:00* Test Item Value Reference Range Interpretation Comments Urine Culture (test code = 630-4) Organism: STAPHYLOCOCCUS AUREUS [facility] TomballUrine Atxiyxp4627-19-64 14:00:00* Test Item Value Reference Range Interpretation Comments Urine Culture (test code = 630-4) Organism: STAPHYLOCOCCUS AUREUS [facility] TomballUrine Jbdbdwt6019-11-03 14:00:00* Test Item Value Reference Range Interpretation Comments Urine Culture (test code = 630-4) Organism: STAPHYLOCOCCUS AUREUS [facility] TomballUrine Gdgbvez9306-64-60 14:00:00* Test Item Value Reference Range Interpretation Comments Urine Culture (test code = 630-4) No Result Data Provided [facility] TomballUrine Unbezct5038-74-73 14:00:00* Test Item Value Reference Range Interpretation Comments Urine Culture (test code = 630-4) No Result Data Provided [facility] TomballFerritin2019-08-27 06:53:00* Test Item Value Reference Range Interpretation Comments Ferritin (test code = 2276-4) 242.22 21.81-274.66 [facility] TomballFerritin2019-08-27 06:53:00* Test Item Value Reference Range Interpretation Comments Ferritin (test code = 2276-4) 242.22 21.81-274.66 [facility] TomballFerritin2019-08-27 06:53:00* Test Item Value Reference Range Interpretation Comments Ferritin (test code = 2276-4) 242.22 21.81-274.66 [facility] TomballMagnesium Hewka2236-53-96 06:25:00* Test Item Value Reference Range Interpretation Comments Magnesium Level (test code = 70035-7) 1.2 1.3-2.1 L [facility] TomballIron Szhub2171-18-46 06:25:00* Test Item Value Reference Range Interpretation Comments Iron Level (test code = 2498-4) 66 65-175 [facility] TomballTotal Iron Binding Ffqlacqh3678-82-90 06:25:00* Test Item Value Reference Range Interpretation Comments Total Iron Binding Capacity (test code = 2500-7) 197 261-4 78 L [facility] TomballPercent Iron Nrsvpvoflk3296-73-75 06:25:00* Test Item Value Reference Range Interpretation Comments Percent Iron Saturation (test code = 2502-3) 34 15-50 [facility] TomballTransferrin2019-08-27 06:25:00* Test Item Value Reference Range Interpretation Comments Transferrin (test code = 3034-6) 141 174-364 L [facility] TomballPhosphorus Zgali5808-16-52 12:53:00* Test Item Value Reference Range Interpretation Comments Phosphorus Level (test code = UXS5263) 5.0 2.3-4.7 H [facility] TomballCT ABDOMEN/PELVIS KF8833-27-60 09:50:00 [place] [address] Patient Name: MANJIT LUO MR #: [id number] : 1980 Age/Sex: 38/M Req #: [id number] Adm Physician: ABHIJIT YODER MD Ordered by: ABHIJIT YODER MD Report #: [id number] Location: MED/SURG Room/Bed: 110 Procedure: [id number] CT/CT ABDOMEN/PELVIS WO Exam Date: 10/18/18 Exam [...] MD 1000 COPY TO: ABHIJIT YODER Ionized Ovaceqs9764-94-54 09:47:00* Test Item Value Reference Range Interpretation Comments Ionized Calcium (test code = 35694-1) 1.0 1.09-1.30 L [facility] TomballIonized Lwdrute7870-04-60 09:47:00* Test Item Value Reference Range Interpretation Comments Ionized Calcium (test code = 79926-5) 1.0 1.09-1.30 L [facility] TomballIonized Hgpemfj9996-22-15 09:47:00* Test Item Value Reference Range Interpretation Comments Ionized Calcium (test code = 80747-9) 1.0 1.09-1.30 L [facility] TomballTotal Jrgzfvvtp2401-07-37 06:16:00* Test Item Value Reference Range Interpretation Comments Total Bilirubin (test code = 1975-2) 0.3 0.2-1.2 [facility] TomballAspartate Amino Transf (AST/SGOT) 2018-10-18 06:16:00* Test Item Value Reference Range Interpretation Comments Aspartate Amino Transf (AST/SGOT) (test code = Aspartate Amino Transf (AST/SGOT)) 118 5-34 H [facility] TomballAlanine Aminotransferase (ALT/SGPT) 2018-10-18 06:16:00* Test Item Value Reference Range Interpretation Comments Alanine Aminotransferase (ALT/SGPT) (test code = 1742-6) 107 0-55 H [facility] TomballTotal Ykuetgw3302-93-92 06:16:00* Test Item Value Reference Range Interpretation Comments Total Protein (test code = 2885-2) 6.5 6.5-8.1 [facility] TomballAlbumin2019-08-26 06:16:00* Test Item Value Reference Range Interpretation Comments Albumin (test code = 1751-7) 2.7 3.5-5.0 L [facility] TomballGlobulin2019-08-26 06:16:00* Test Item Value Reference Range Interpretation Comments Globulin (test code = 60605-4) 3.8 2.3-3.5 H [facility] TomballAlbumin/Globulin Brtgf9922-74-95 06:16:00 * Test Item Value Reference Range Interpretation Comments Albumin/Globulin Ratio (test code = 1759-0) 0.7 0.8-2.0 L [facility] TomballAlkaline Anvrqtaxetg7210-54-12 06:16:00* Test Item Value Reference Range Interpretation Comments Alkaline Phosphatase (test code = 6768-6) 306 40-150 H [facility] TomballUrine Wwplo8705-25-22 02:26:00* Test Item Value Reference Range Interpretation Comments Urine Color (test code = 5778-6) YELLOW YELLOW [facility] TomballUrine Geablhn6392-20-97 02:26:00* Test Item Value Reference Range Interpretation Comments Urine Clarity (test code = 36008-4) CLOUDY CLEAR H [facility] TomballUrine Specific Wkmzrbd2316-42-02 02:26:00 * Test Item Value Reference Range Interpretation Comments Urine Specific [place] (test code = 5811-5) 1.020 1.010-1.02 5 [facility] TomballUrine xQ0215-87-02 02:26:00* Test Item Value Reference Range Interpretation Comments Urine pH (test code = 09865-5) 6 5-7 [facility] TomballUrine Leukocyte Adtipylg0715-44-29 02:26:00* Test Item Value Reference Range Interpretation Comments Urine Leukocyte Esterase (test code = 5799-2) 2+ NEGATIVE H [facility] Wisabxe9154-97-53 02:26:00* Test Item Value Reference Range Interpretation Comments Urine Nitrite (test code = 14765-9) NEGATIVE NEGATIVE [facility] TomballUrine Sfgcgyh4371-90-97 02:26:00* Test Item Value Reference Range Interpretation Comments Urine Protein (test code = 5804-0) 3+ NEGATIVE H [facility] TomballUrine Glucose (UA)2018-10-17 02:26:00* Test Item Value Reference Range Interpretation Comments Urine Glucose (UA) (test code = 2349-9) NEGATIVE NEGATIVE [facility] TomballUrine Wwpjsma8740-38-96 02:26:00* Test Item Value Reference Range Interpretation Comments Urine Ketones (test code = 50573-6) NEGATIVE NEGATIVE [facility] TomballUrine Yorjxwcobmtx0618-44-64 02:26:00* Test Item Value Reference Range Interpretation Comments Urine Urobilinogen (test code = 62535-4) 0.2 0.2-1 [facility] TomballUrine Fapgapshn3343-25-19 02:26:00* Test Item Value Reference Range Interpretation Comments Urine Bilirubin (test code = 1978-6) NEGATIVE NEGATIVE [facility] TomballUrine Yfbrr3547-00-86 02:26:00* Test Item Value Reference Range Interpretation Comments Urine Blood (test code = 76942-2) 3+ NEGATIVE H [facility] TomballUrine WHR5954-85-80 02:26:00* Test Item Value Reference Range Interpretation Comments Urine WBC (test code = 5821-4) >50 0-5 H [facility] TomballUrine TXI5931-77-27 02:26:00* Test Item Value Reference Range Interpretation Comments Urine RBC (test code = 47249-2) >50 0-5 H [facility] TomballUrine Ywxffqul5602-75-66 02:26:00* Test Item Value Reference Range Interpretation Comments Urine Bacteria (test code = 98970-0) MANY NONE H [facility] TomballUrine Epithelial Dwnts2902-16-55 02:26:00 * Test Item Value Reference Range Interpretation Comments Urine Epithelial Cells (test code = 12890-7) MODERATE NONE [facility] Vfwud5697-14-75 13:40:00* Test Item Value Reference Range Interpretation Comments Sodium Level (test code = 2951-2) 142 136-145 [facility] TomballPotassium Qtpeg2216-97-08 13:40:00* Test Item Value Reference Range Interpretation Comments Potassium Level (test code = 2823-3) 4.4 3.5-5.1 [facility] TomballChloride Ywzlc2731-42-57 13:40:00* Test Item Value Reference Range Interpretation Comments Chloride Level (test code = 2075-0) 107 98-107 [facility] TomballCarbon Dioxide Nkvkw4943-82-29 13:40:00* Test Item Value Reference Range Interpretation Comments Carbon Dioxide Level (test code = 2028-9) 25 22-29 [facility] TomballAnion Qjm8914-07-20 13:40:00* Test Item Value Reference Range Interpretation Comments Anion Gap (test code = 30903-2) 14.4 8-16 [facility] TomballBlood Urea Wwmxuvem4416-23-56 13:40:00* Test Item Value Reference Range Interpretation Comments Blood Urea Nitrogen (test code = 3094-0) 34 7-26 H [facility] TomballCreatinine2019-05-05 13:40:00* Test Item Value Reference Range Interpretation Comments Creatinine (test code = 2160-0) 2.63 0.72-1.25 H [facility] TomballBUN/Creatinine Zevfy3185-87-52 13:40:00* Test Item Value Reference Range Interpretation Comments BUN/Creatinine Ratio (test code = 3097-3) 13 6-25 [facility] TomballEstimat Glomerular Filtration Rate 2018-06-27 13:40:00* Test Item Value Reference Range Interpretation Comments Estimat Glomerular Filtration Rate (test code = 040303457) 28 >60 L Ranges were taken from the National Kidney Disease Education Program and the [employer] literature.Reference ranges:60 or greater: Gcfchb73-97 ( for 3 consecutive months): Chronic kidney disease 15 or less: Kidney failureH[facility] TomballGlucose Qymke8479-84-73 13:40:00* Test Item Value Reference Range Interpretation Comments Glucose Level (test code = XXF2381) 105 74-118 [facility] TomballCalcium Ilgkt0585-47-55 13:40:00* Test Item Value Reference Range Interpretation Comments Calcium Level (test code = 67830-4) 7.1 8.4-10.2 L [facility] TomballBedside Lanzmdq7619-86-48 11:50:00* Test Item Value Reference Range Interpretation Comments Bedside Glucose (test code = 30954-0) 160 70-120 H Meter ID: [id number] [facility]Blood Culture 2018-06-25 17:11:00* Test Item Value Reference Range Interpretation Comments Blood Culture (test code = 06517469) NO GROWTH AFTER 5 DAYS, FINAL REPORT [facility] TomballBlood Rnqgnlj5596-91-36 17:11:00* Test Item Value Reference Range Interpretation Comments Blood Culture (test code = 95957840) NO GROWTH AFTER 5 DAYS, FINAL REPORT [facility] TomballWhite Blood Mebah7373-92-27 06:01:00* Test Item Value Reference Range Interpretation Comments White Blood Count (test code = 6690-2) 4.22 4.8-10.8 L [facility] TomballRed Blood Whtor9705-63-59 06:01:00* Test Item Value Reference Range Interpretation Comments Red Blood Count (test code = 789-8) 3.20 4.3-5.7 L [facility] TomballHemoglobin2019-05-03 06:01:00* Test Item Value Reference Range Interpretation Comments Hemoglobin (test code = 90906-8) 8.6 14.0-18.0 L [facility]ballHematocrit2019-05-03 06:01:00* Test Item Value Reference Range Interpretation Comments Hematocrit (test code = 4544-3) 26.0 38.2-49.6 L [facility] TomballMean Corpuscular Hhzojp5253-71-64 06:01:00* Test Item Value Reference Range Interpretation Comments Mean Corpuscular Volume (test code = 787-2) 81.3 81-99 [facility] TomballMean Corpuscular Iupcidcejf1699-90-40 06:01:00* Test Item Value Reference Range Interpretation Comments Mean Corpuscular Hemoglobin (test code = 785-6) 26.9 28-32 L [facility] TomballMean Corpuscular Hemoglobin Concent 2018-06-25 06:01:00* Test Item Value Reference Range Interpretation Comments Mean Corpuscular Hemoglobin Concent (test code = 786-4) 33.1 31-35 [facility] TomballRed Cell Distribution Imaax6658-51-93 06:01:00* Test Item Value Reference Range Interpretation Comments Red Cell Distribution Width (test code = 43485-8) 13.7 11.7 -14.4 [facility] TomballPlatelet Oxyvg9790-97-80 06:01:00* Test Item Value Reference Range Interpretation Comments Platelet Count (test code = 777-3) 147 140-360 [facility] TomballNeutrophils (%) (Auto)2018-06-25 06:01:00 * Test Item Value Reference Range Interpretation Comments Neutrophils (%) (Auto) (test code = 50439-2) 56.1 38.7-80.0 [facility] TomballLymphocytes (%) (Auto)2018-06-25 06:01:00 * Test Item Value Reference Range Interpretation Comments Lymphocytes (%) (Auto) (test code = 736-9) 32.0 18.0-39.1 [facility] TomballMonocytes (%) (Auto)2018-06-25 06:01:00* Test Item Value Reference Range Interpretation Comments Monocytes (%) (Auto) (test code = 5905-5) 5.7 4.4-11.3 [facility]ballEosinophils (%) (Auto)2018-06-25 06:01:00 * Test Item Value Reference Range Interpretation Comments Eosinophils (%) (Auto) (test code = 713-8) 3.8 0.0-6.0 [facility]ballBasophils (%) (Auto)2018-06-25 06:01:00* Test Item Value Reference Range Interpretation Comments Basophils (%) (Auto) (test code = 706-2) 0.5 0.0-1.0 [facility] TomballIM GRANULOCYTES %2018-06-25 06:01:00* Test Item Value Reference Range Interpretation Comments IM GRANULOCYTES % (test code = IM GRANULOCYTES %) 1.9 0.0- 1.0 H [facility] TomballNeutrophils # (Auto)2018-06-25 06:01:00* Test Item Value Reference Range Interpretation Comments Neutrophils # (Auto) (test code = 751-8) 2.4 2.1-6.9 [facility] TomballLymphocytes # (Auto)2018-06-25 06:01:00* Test Item Value Reference Range Interpretation Comments Lymphocytes # (Auto) (test code = 98076-8) 1.4 1.0-3.2 [facility] TomballMonocytes # (Auto)2018-06-25 06:01:00* Test Item Value Reference Range Interpretation Comments Monocytes # (Auto) (test code = 742-7) 0.2 0.2-0.8 [facility]ballEosinophils # (Auto)2018-06-25 06:01:00* Test Item Value Reference Range Interpretation Comments Eosinophils # (Auto) (test code = 711-2) 0.2 0.0-0.4 [facility]ballBasophils # (Auto)2018-06-25 06:01:00* Test Item Value Reference Range Interpretation Comments Basophils # (Auto) (test code = 704-7) 0.0 0.0-0.1 [facility] TomballAbsolute Immature Granulocyte (auto 2018-06-25 06:01:00* Test Item Value Reference Range Interpretation Comments Absolute Immature Granulocyte (auto (shin t code = Absolute Immature Granulocyte (auto) 0.08 0-0.1 [facility] TomballFerritin2019-05-01 08:32:00* Test Item Value Reference Range Interpretation Comments Ferritin (test code = 2276-4) 273.51 21.81-274.66 [facility] TomballIron Lultc8523-46-71 06:46:00* Test Item Value Reference Range Interpretation Comments Iron Level (test code = 2498-4) 71 65-175 [facility] TomballTotal Iron Binding Tmxapheo6474-16-92 06:46:00* Test Item Value Reference Range Interpretation Comments Total Iron Binding Capacity (test code = 2500-7) 217 261-4 78 L [facility] TomballPercent Iron Ahacyefaha8258-45-59 06:46:00* Test Item Value Reference Range Interpretation Comments Percent Iron Saturation (test code = 2502-3) 33 15-50 [facility] TomballTransferrin2019-05-01 06:46:00* Test Item Value Reference Range Interpretation Comments Transferrin (test code = 3034-6) 155 174-364 L [facility] TomballPhosphorus Teisa5937-97-15 06:11:00* Test Item Value Reference Range Interpretation Comments Phosphorus Level (test code = RQT5956) 4.8 2.3-4.7 H [facility] TomballMagnesium Xluqi9877-48-33 06:11:00* Test Item Value Reference Range Interpretation Comments Magnesium Level (test code = 81768-2) 1.2 1.3-2.1 L [facility] TomballUrine Random Total Cpdbwen0941-12-47 18:31:00* Test Item Value Reference Range Interpretation Comments Urine Random Total Protein (test code = 2888-6) 227.6 1-14 H [facility] TomballUrine Protein/Creatinine Elssl0671-48-93 18:31:00* Test Item Value Reference Range Interpretation Comments Urine Protein/Creatinine Ratio (test code = 11581-9) 2.00 [facility] TomballUrine Random Total Ptvvzyx8343-66-97 18:31:00* Test Item Value Reference Range Interpretation Comments Urine Random Total Protein (test code = 2888-6) 227.6 1-14 H [facility] TomballUrine Protein/Creatinine Vmrqm4220-67-71 18:31:00* Test Item Value Reference Range Interpretation Comments Urine Protein/Creatinine Ratio (test code = 36453-4) 2.00 [facility] TomballUrine Random Total Fleicvw0405-49-69 18:31:00* Test Item Value Reference Range Interpretation Comments Urine Random Total Protein (test code = 2888-6) 227.6 1-14 H [facility] TomballUrine Protein/Creatinine Jnryj3886-38-96 18:31:00* Test Item Value Reference Range Interpretation Comments Urine Protein/Creatinine Ratio (test code = 78308-0) 2.00 [facility] TomballUrine Random Total Avhkqlw2615-98-97 18:31:00* Test Item Value Reference Range Interpretation Comments Urine Random Total Protein (test code = 2888-6) 227.6 1-14 H [facility] TomballUrine Protein/Creatinine Yeuot5013-21-62 18:31:00* Test Item Value Reference Range Interpretation Comments Urine Protein/Creatinine Ratio (test code = 51303-8) 2.00 [facility] TomballUrine Random Total Aehutou3839-44-49 18:31:00* Test Item Value Reference Range Interpretation Comments Urine Random Total Protein (test code = 2888-6) 227.6 1-14 H [facility] TomballUrine Protein/Creatinine Ngftk2418-93-99 18:31:00* Test Item Value Reference Range Interpretation Comments Urine Protein/Creatinine Ratio (test code = 78025-4) 2.00 [facility] TomballUrine Random Total Xgxadwm8899-40-56 18:31:00* Test Item Value Reference Range Interpretation Comments Urine Random Total Protein (test code = 2888-6) 227.6 1-14 H [facility] TomballUrine Protein/Creatinine Iarte2554-67-82 18:31:00* Test Item Value Reference Range Interpretation Comments Urine Protein/Creatinine Ratio (test code = 03809-6) 2.00 [facility] TomballUrine Qyyxmdianj1332-95-29 18:19:00* Test Item Value Reference Range Interpretation Comments Urine Creatinine (test code = 2161-8) 76.55 63-166 [facility] TomballUrine Yaawlnriqq9667-45-65 18:19:00* Test Item Value Reference Range Interpretation Comments Urine Creatinine (test code = 2161-8) 76.55 63-166 [facility] TomballUrine Kcredtuwok0694-87-87 18:19:00* Test Item Value Reference Range Interpretation Comments Urine Creatinine (test code = 2161-8) 76.55 63-166 [facility] TomballUrine Ejfbvncxru8869-41-72 18:19:00* Test Item Value Reference Range Interpretation Comments Urine Creatinine (test code = 2161-8) 76.55 63-166 [facility] TomballUrine Dpjclkdkef2040-80-05 18:19:00* Test Item Value Reference Range Interpretation Comments Urine Creatinine (test code = 2161-8) 76.55 63-166 [facility] TomballUrine Pwakafpnju5424-47-63 18:19:00* Test Item Value Reference Range Interpretation Comments Urine Creatinine (test code = 2161-8) 76.55 63-166 [facility] TomballTotal Aosknuwkj9366-38-53 06:25:00* Test Item Value Reference Range Interpretation Comments Total Bilirubin (test code = 1975-2) 0.2 0.2-1.2 [facility] TomballAspartate Amino Transf (AST/SGOT) 2018-06-22 06:25:00* Test Item Value Reference Range Interpretation Comments Aspartate Amino Transf (AST/SGOT) (test code = Aspartate Amino Transf (AST/SGOT)) 86 5-34 H [facility] TomballAlanine Aminotransferase (ALT/SGPT) 2018-06-22 06:25:00* Test Item Value Reference Range Interpretation Comments Alanine Aminotransferase (ALT/SGPT) (test code = 1742-6) 76 0-55 H [facility] TomballTotal Qsjmsqh0395-77-40 06:25:00* Test Item Value Reference Range Interpretation Comments Total Protein (test code = 2885-2) 6.8 6.5-8.1 [facility] TomballAlbumin2019-04-30 06:25:00* Test Item Value Reference Range Interpretation Comments Albumin (test code = 1751-7) 2.1 3.5-5.0 L [facility] TomballGlobulin2019-04-30 06:25:00* Test Item Value Reference Range Interpretation Comments Globulin (test code = 71797-8) 4.7 2.3-3.5 H [facility] TomballAlbumin/Globulin Rsago5746-56-67 06:25:00 * Test Item Value Reference Range Interpretation Comments Albumin/Globulin Ratio (test code = 1759-0) 0.4 0.8-2.0 L [facility] TomballAlkaline Uhrlbtcjaan6472-73-94 06:25:00* Test Item Value Reference Range Interpretation Comments Alkaline Phosphatase (test code = 6768-6) 265 40-150 H [facility] TomballHemoglobin A1c Uumiyif9532-23-93 06:11:00 * Test Item Value Reference Range Interpretation Comments Hemoglobin A1c Percent (test code = Hemoglobin A1c Percent) 5.7 4.0-7.0 [facility] TomballHemoglobin A1c Qxylzjk1759-01-16 06:11:00 * Test Item Value Reference Range Interpretation Comments Hemoglobin A1c Percent (test code = Hemoglobin A1c Percent) 5.7 4.0-7.0 [facility]ballHemoglobin A1c Gbqqnxu0481-73-55 06:11:00 * Test Item Value Reference Range Interpretation Comments Hemoglobin A1c Percent (test code = Hemoglobin A1c Percent) 5.7 4.0-7.0 [facility]ballHemoglobin A1c Idqnyjh9170-14-54 06:11:00 * Test Item Value Reference Range Interpretation Comments Hemoglobin A1c Percent (test code = Hemoglobin A1c Percent) 5.7 4.0-7.0 [facility]ballHemoglobin A1c Rpkwari1399-76-85 06:11:00 * Test Item Value Reference Range Interpretation Comments Hemoglobin A1c Percent (test code = Hemoglobin A1c Percent) 5.7 4.0-7.0 [facility] TomballHemoglobin A1c Rcpzkuo1702-47-67 06:11:00 * Test Item Value Reference Range Interpretation Comments Hemoglobin A1c Percent (test code = Hemoglobin A1c Percent) 5.7 4.0-7.0 [facility] TomballVitamin B12 Jlnjr3146-39-01 11:07:00* Test Item Value Reference Range Interpretation Comments Vitamin B12 Level (test code = 74303-3) 403 213-816 [facility] TomballFolate2019-04-29 11:07:00* Test Item Value Reference Range Interpretation Comments Folate (test code = 2284-8) 7.2 7.0-15.4 [facility] TomballVitamin B12 Irwft1762-93-26 11:07:00* Test Item Value Reference Range Interpretation Comments Vitamin B12 Level (test code = 67680-0) 403 213-816 [facility] TomballFolate2019-04-29 11:07:00* Test Item Value Reference Range Interpretation Comments Folate (test code = 2284-8) 7.2 7.0-15.4 [facility] TomballVitamin B12 Oauyg7770-96-48 11:07:00* Test Item Value Reference Range Interpretation Comments Vitamin B12 Level (test code = 67367-3) 403 213-816 [facility] TomballFolate2019-04-29 11:07:00* Test Item Value Reference Range Interpretation Comments Folate (test code = 2284-8) 7.2 7.0-15.4 [facility] TomballVitamin B12 Lcbnx3332-36-43 11:07:00* Test Item Value Reference Range Interpretation Comments Vitamin B12 Level (test code = 59744-7) 403 213-816 [facility] TomballFolate2019-04-29 11:07:00* Test Item Value Reference Range Interpretation Comments Folate (test code = 2284-8) 7.2 7.0-15.4 [facility] TomballVitamin B12 Qipbs8778-10-47 11:07:00* Test Item Value Reference Range Interpretation Comments Vitamin B12 Level (test code = 80479-0) 403 213-816 [facility] TomballFolate2019-04-29 11:07:00* Test Item Value Reference Range Interpretation Comments Folate (test code = 2284-8) 7.2 7.0-15.4 [facility]ballVitamin B12 Awcej9690-33-47 11:07:00* Test Item Value Reference Range Interpretation Comments Vitamin B12 Level (test code = 97854-4) 403 213-816 [facility] TomballFolate2019-04-29 11:07:00* Test Item Value Reference Range Interpretation Comments Folate (test code = 2284-8) 7.2 7.0-15.4 [facility] TomballThyroid Stimulating Hormone (TSH) 2018-06-21 11:06:00* Test Item Value Reference Range Interpretation Comments Thyroid Stimulating Hormone (TSH) (test code = 14077-4) 2.156 0.350-4.940 [facility]ballThyroid Stimulating Hormone (TSH) 2018-06-21 11:06:00* Test Item Value Reference Range Interpretation Comments Thyroid Stimulating Hormone (TSH) (test code = 49876-3) 2.156 0.350-4.940 [facility]ballThyroid Stimulating Hormone (TSH) 2018-06-21 11:06:00* Test Item Value Reference Range Interpretation Comments Thyroid Stimulating Hormone (TSH) (test code = 29416-7) 2.156 0.350-4.940 [facility]ballThyroid Stimulating Hormone (TSH) 2018-06-21 11:06:00* Test Item Value Reference Range Interpretation Comments Thyroid Stimulating Hormone (TSH) (test code = 03826-4) 2.156 0.350-4.940 [facility]ballThyroid Stimulating Hormone (TSH) 2018-06-21 11:06:00* Test Item Value Reference Range Interpretation Comments Thyroid Stimulating Hormone (TSH) (test code = 69757-0) 2.156 0.350-4.940 [facility]ballThyroid Stimulating Hormone (TSH) 2018-06-21 11:06:00* Test Item Value Reference Range Interpretation Comments Thyroid Stimulating Hormone (TSH) (test code = 18751-8) 2.156 0.350-4.940 [facility] TomballUrine OJF0827-28-09 17:46:00* Test Item Value Reference Range Interpretation Comments Urine WBC (test code = 5821-4) >50 0-5 H [facility] TomballUrine KVC7206-04-74 17:46:00* Test Item Value Reference Range Interpretation Comments Urine RBC (test code = 36107-9) >50 0-5 H [facility] TomballUrine Nynobcra6264-44-82 17:46:00* Test Item Value Reference Range Interpretation Comments Urine Bacteria (test code = 39215-1) MANY NONE H [facility] TomballUrine Epithelial Koibk7495-30-04 17:46:00 * Test Item Value Reference Range Interpretation Comments Urine Epithelial Cells (test code = 83399-0) FEW NONE [facility] TomballUrine Fine Granular Dzzva1331-02-19 17:46:00* Test Item Value Reference Range Interpretation Comments Urine Fine Granular Casts (test code = 73602-7) 1-5 >0 H [facility] TomballUrine Coarse Granular Kumzg7409-83-65 17:46:00* Test Item Value Reference Range Interpretation Comments Urine Coarse Granular Casts (test code = 36416-3) 1-5 >0 H [facility] TomballUrine Fine Granular Uprum4224-42-95 17:46:00* Test Item Value Reference Range Interpretation Comments Urine Fine Granular Casts (test code = 06294-1) 1-5 >0 H [facility] TomballUrine Coarse Granular Gukxn8553-58-97 17:46:00* Test Item Value Reference Range Interpretation Comments Urine Coarse Granular Casts (test code = 30979-9) 1-5 >0 H [facility] TomballUrine Fine Granular Eqcda1158-67-39 17:46:00* Test Item Value Reference Range Interpretation Comments Urine Fine Granular Casts (test code = 47003-8) 1-5 >0 H [facility] TomballUrine Coarse Granular Ogtbw1315-43-13 17:46:00* Test Item Value Reference Range Interpretation Comments Urine Coarse Granular Casts (test code = 40825-2) 1-5 >0 H [facility] TomballUrine Fine Granular Uxkez2102-25-28 17:46:00* Test Item Value Reference Range Interpretation Comments Urine Fine Granular Casts (test code = 94650-4) 1-5 >0 H [facility] TomballUrine Coarse Granular Jbayl2646-15-60 17:46:00* Test Item Value Reference Range Interpretation Comments Urine Coarse Granular Casts (test code = 14127-0) 1-5 >0 H [facility] TomballUrine Fine Granular Bolvi6946-80-27 17:46:00* Test Item Value Reference Range Interpretation Comments Urine Fine Granular Casts (test code = 16379-1) 1-5 >0 H [facility] TomballUrine Coarse Granular Bqmpe9047-17-32 17:46:00* Test Item Value Reference Range Interpretation Comments Urine Coarse Granular Casts (test code = 28752-8) 1-5 >0 H [facility] TomballUrine Fine Granular Oxley2995-83-06 17:46:00* Test Item Value Reference Range Interpretation Comments Urine Fine Granular Casts (test code = 10898-7) 1-5 >0 H [facility] TomballUrine Coarse Granular Tmjev0956-14-35 17:46:00* Test Item Value Reference Range Interpretation Comments Urine Coarse Granular Casts (test code = 20689-1) 1-5 >0 H [facility] TomballUrine Abdyr4417-58-77 17:30:00* Test Item Value Reference Range Interpretation Comments Urine Color (test code = 5778-6) YELLOW YELLOW [facility] TomballUrine Aaqywln4121-95-85 17:30:00* Test Item Value Reference Range Interpretation Comments Urine Clarity (test code = 70533-5) CLOUDY CLEAR H [facility] TomballUrine Specific Nofvmem7372-46-15 17:30:00 * Test Item Value Reference Range Interpretation Comments Urine Specific [place] (test code = 5811-5) 1.020 1.010-1.02 5 [facility] TomballUrine cV1616-02-07 17:30:00* Test Item Value Reference Range Interpretation Comments Urine pH (test code = 16412-4) 6 5-7 [facility] TomballUrine Leukocyte Keolmlwn4290-24-68 17:30:00* Test Item Value Reference Range Interpretation Comments Urine Leukocyte Esterase (test code = 5799-2) 1+ NEGATIVE H [facility] Brmeztg6944-69-42 17:30:00* Test Item Value Reference Range Interpretation Comments Urine Nitrite (test code = 08500-6) NEGATIVE NEGATIVE [facility] Kvcgggz0226-66-23 17:30:00* Test Item Value Reference Range Interpretation Comments Urine Protein (test code = 5804-0) 3+ NEGATIVE H [facility] Glucose (UA)2018-06-20 17:30:00* Test Item Value Reference Range Interpretation Comments Urine Glucose (UA) (test code = 2349-9) 1+ NEGATIVE H [facility] TomballUrine Imsdgtb1898-29-95 17:30:00* Test Item Value Reference Range Interpretation Comments Urine Ketones (test code = 84153-1) NEGATIVE NEGATIVE [facility] Xzmjdldbpect4848-86-25 17:30:00* Test Item Value Reference Range Interpretation Comments Urine Urobilinogen (test code = 24466-0) 0.2 0.2-1 [facility]ballUrine Vwptyfkhu4325-01-33 17:30:00* Test Item Value Reference Range Interpretation Comments Urine Bilirubin (test code = 1978-6) NEGATIVE NEGATIVE [facility] TomballUrine Rdmry9017-81-54 17:30:00* Test Item Value Reference Range Interpretation Comments Urine Blood (test code = 63818-9) 4+ NEGATIVE H [facility] TomballBedside Pjtfqsx0357-60-05 16:10:00* Test Item Value Reference Range Interpretation Comments Bedside Glucose (test code = 37925-1) 72 70-120 Meter ID: [id number][facility] [place] Culture 2018-05-07 07:13:00* Test Item Value Reference Range Interpretation Comments Urine Culture (test code = 630-4) Organism: PSEUDOMONAS AERUGINOSA [facility] Amdjmme7228-39-47 07:13:00* Test Item Value Reference Range Interpretation Comments Urine Culture (test code = 630-4) Organism: PSEUDOMONAS AERUGINOSA [facility] Pbfmyyv8841-19-18 07:13:00* Test Item Value Reference Range Interpretation Comments Urine Culture (test code = 630-4) Organism: PSEUDOMONAS AERUGINOSA [facility] Jnpsbdp6184-19-36 07:13:00* Test Item Value Reference Range Interpretation Comments Urine Culture (test code = 630-4) Organism: PSEUDOMONAS AERUGINOSA [facility]2019-03-15 07:13:00* Test Item Value Reference Range Interpretation Comments Urine Culture (test code = 630-4) Organism: PSEUDOMONAS AERUGINOSA [facility] Hvybxiv7172-33-48 07:13:00* Test Item Value Reference Range Interpretation Comments Urine Culture (test code = 630-4) No Result [facility]ided [facility] Qhbmw9728-14-04 06:43:00* Test Item Value Reference Range Interpretation Comments Sodium Level (test code = 2951-2) 136 136-145 [facility] TomballPotassium Jqocf1963-94-90 06:43:00* Test Item Value Reference Range Interpretation Comments Potassium Level (test code = 2823-3) 5.2 3.5-5.1 H [facility] TomballChloride Tydjg9864-81-01 06:43:00* Test Item Value Reference Range Interpretation Comments Chloride Level (test code = 2075-0) 111 98-107 H [facility] TomballCarbon Dioxide Nfylj8607-28-50 06:43:00* Test Item Value Reference Range Interpretation Comments Carbon Dioxide Level (test code = 2028-9) 21 22-29 L [facility] TomballAnion Ggx6464-90-96 06:43:00* Test Item Value Reference Range Interpretation Comments Anion Gap (test code = 48259-6) 9.2 8-16 [facility] TomballBlood Urea Nebuytwv9251-85-20 06:43:00* Test Item Value Reference Range Interpretation Comments Blood Urea Nitrogen (test code = 3094-0) 26 7-26 [facility] TomballCreatinine2019-03-14 06:43:00* Test Item Value Reference Range Interpretation Comments Creatinine (test code = 2160-0) 2.22 0.72-1.25 H [facility] TomballBUN/Creatinine Zmufz8338-02-87 06:43:00* Test Item Value Reference Range Interpretation Comments BUN/Creatinine Ratio (test code = 3097-3) 12 6-25 [facility] TomballEstimat Glomerular Filtration Rate 2018-05-06 06:43:00* Test Item Value Reference Range Interpretation Comments Estimat Glomerular Filtration Rate (test code = 381790960) 33 >60 L Ranges were taken from the National Kidney Disease Education Program and the [facility] Kidney Foundation literature.Reference ranges:60 or greater: Qwczav91-10 ( for 3 consecutive months): Chronic kidney disease 15 or less: Kidney failureH[facility] TomballGlucose Bzflh8233-01-26 06:43:00* Test Item Value Reference Range Interpretation Comments Glucose Level (test code = WLC2878) 144 74-118 H [facility] TomballCalcium Xgqnz8267-89-16 06:43:00* Test Item Value Reference Range Interpretation Comments Calcium Level (test code = 30025-0) 6.5 8.4-10.2 LL Results repeated and called to RANULFO ALATORRE RN at 0641 on 05/06/18 by Morenita Guy. Read back and verified.[facility] TomballWhite Blood Lrrbz1295-84-26 06:20:00* Test Item Value Reference Range Interpretation Comments White Blood Count (test code = 6690-2) 3.55 4.8-10.8 L [facility] TomballRed Blood Rcsed5000-75-87 06:20:00* Test Item Value Reference Range Interpretation Comments Red Blood Count (test code = 789-8) 3.25 4.3-5.7 L [facility] TomballHemoglobin2019-03-14 06:20:00* Test Item Value Reference Range Interpretation Comments Hemoglobin (test code = 41194-0) 8.6 14.0-18.0 L [facility] TomballHematocrit2019-03-14 06:20:00* Test Item Value Reference Range Interpretation Comments Hematocrit (test code = 4544-3) 27.2 38.2-49.6 L [facility] TomballMean Corpuscular Oluflr3649-43-00 06:20:00* Test Item Value Reference Range Interpretation Comments Mean Corpuscular Volume (test code = 787-2) 83.7 81-99 [facility]ballMean Corpuscular Kdzabnjerp1163-66-72 06:20:00* Test Item Value Reference Range Interpretation Comments Mean Corpuscular Hemoglobin (test code = 785-6) 26.5 28-32 L [facility] TomballMean Corpuscular Hemoglobin Concent 2018-05-06 06:20:00* Test Item Value Reference Range Interpretation Comments Mean Corpuscular Hemoglobin Concent (test code = 786-4) 31.6 31-35 [facility] TomballRed Cell Distribution Xihhx4200-21-81 06:20:00* Test Item Value Reference Range Interpretation Comments Red Cell Distribution Width (test code = 28224-1) 14.6 11.7 -14.4 H [facility] TomballPlatelet Fsyid1233-32-75 06:20:00* Test Item Value Reference Range Interpretation Comments Platelet Count (test code = 777-3) 113 140-360 L [facility] TomballNeutrophils (%) (Auto)2018-05-06 06:20:00 * Test Item Value Reference Range Interpretation Comments Neutrophils (%) (Auto) (test code = 22161-6) 59.6 38.7-80.0 [facility] TomballLymphocytes (%) (Auto)2018-05-06 06:20:00 * Test Item Value Reference Range Interpretation Comments Lymphocytes (%) (Auto) (test code = 736-9) 24.8 18.0-39.1 [facility] TomballMonocytes (%) (Auto)2018-05-06 06:20:00* Test Item Value Reference Range Interpretation Comments Monocytes (%) (Auto) (test code = 5905-5) 8.5 4.4-11.3 [facility]ballEosinophils (%) (Auto)2018-05-06 06:20:00 * Test Item Value Reference Range Interpretation Comments Eosinophils (%) (Auto) (test code = 713-8) 5.1 0.0-6.0 [facility] TomballBasophils (%) (Auto)2018-05-06 06:20:00* Test Item Value Reference Range Interpretation Comments Basophils (%) (Auto) (test code = 706-2) 0.6 0.0-1.0 [facility] TomballIM GRANULOCYTES %2018-05-06 06:20:00* Test Item Value Reference Range Interpretation Comments IM GRANULOCYTES % (test code = IM GRANULOCYTES %) 1.4 0.0- 1.0 H [facility] TomballNeutrophils # (Auto)2018-05-06 06:20:00* Test Item Value Reference Range Interpretation Comments Neutrophils # (Auto) (test code = 751-8) 2.1 2.1-6.9 [facility] TomballLymphocytes # (Auto)2018-05-06 06:20:00* Test Item Value Reference Range Interpretation Comments Lymphocytes # (Auto) (test code = 28287-9) 0.9 1.0-3.2 L [facility] TomballMonocytes # (Auto)2018-05-06 06:20:00* Test Item Value Reference Range Interpretation Comments Monocytes # (Auto) (test code = 742-7) 0.3 0.2-0.8 [facility]ballEosinophils # (Auto)2018-05-06 06:20:00* Test Item Value Reference Range Interpretation Comments Eosinophils # (Auto) (test code = 711-2) 0.2 0.0-0.4 [facility] TomballBasophils # (Auto)2018-05-06 06:20:00* Test Item Value Reference Range Interpretation Comments Basophils # (Auto) (test code = 704-7) 0.0 0.0-0.1 [facility] TomballAbsolute Immature Granulocyte (auto 2018-05-06 06:20:00* Test Item Value Reference Range Interpretation Comments Absolute Immature Granulocyte (auto (shin t code = Absolute Immature Granulocyte (auto) 0.05 0-0.1 [facility] TomballTotal Jfgtrijuh6619-23-53 06:21:00* Test Item Value Reference Range Interpretation Comments Total Bilirubin (test code = 1975-2) 0.2 0.2-1.2 [facility] TomballAspartate Amino Transf (AST/SGOT) 2018-05-05 06:21:00* Test Item Value Reference Range Interpretation Comments Aspartate Amino Transf (AST/SGOT) (test code = Aspartate Amino Transf (AST/SGOT)) 31 5-34 [facility] TomballAlanine Aminotransferase (ALT/SGPT) 2018-05-05 06:21:00* Test Item Value Reference Range Interpretation Comments Alanine Aminotransferase (ALT/SGPT) (test code = 1742-6) 44 0-55 [facility] TomballTotal Mpkcqvd6418-21-93 06:21:00* Test Item Value Reference Range Interpretation Comments Total Protein (test code = 2885-2) 6.6 6.5-8.1 [facility] TomballAlbumin2019-03-13 06:21:00* Test Item Value Reference Range Interpretation Comments Albumin (test code = 1751-7) 2.4 3.5-5.0 L [facility] TomballGlobulin2019-03-13 06:21:00* Test Item Value Reference Range Interpretation Comments Globulin (test code = 41144-6) 4.2 2.3-3.5 H [facility] TomballAlbumin/Globulin Dlesn1403-68-54 06:21:00 * Test Item Value Reference Range Interpretation Comments Albumin/Globulin Ratio (test code = 1759-0) 0.6 0.8-2.0 L [facility] TomballAlkaline Hpcqjwxenvw3621-31-53 06:21:00* Test Item Value Reference Range Interpretation Comments Alkaline Phosphatase (test code = 6768-6) 272 40-150 H [facility] TomballUrine Pmzlc2590-88-38 01:32:00* Test Item Value Reference Range Interpretation Comments Urine Color (test code = 5778-6) YELLOW YELLOW [facility] TomballUrine Fbncfpg5018-08-44 01:32:00* Test Item Value Reference Range Interpretation Comments Urine Clarity (test code = 27281-5) CLOUDY CLEAR H [facility] TomballUrine Specific Tmxscgf4365-50-02 01:32:00 * Test Item Value Reference Range Interpretation Comments Urine Specific [place] (test code = 5811-5) 1.025 1.010-1.02 5 [facility] TomballUrine rL2129-33-53 01:32:00* Test Item Value Reference Range Interpretation Comments Urine pH (test code = 70457-5) 6 5-7 [facility] TomballUrine Leukocyte Uitdssej1796-08-70 01:32:00* Test Item Value Reference Range Interpretation Comments Urine Leukocyte Esterase (test code = 5799-2) 2+ NEGATIVE [facility] Mrwzrli0023-49-76 01:32:00* Test Item Value Reference Range Interpretation Comments Urine Nitrite (test code = 58528-8) POSITIVE NEGATIVE [facility]icsUrine Jpuykui8885-29-36 01:32:00* Test Item Value Reference Range Interpretation Comments Urine Protein (test code = 5804-0) 3+ NEGATIVE [facility]icsUrine Glucose (UA)2018-05-04 01:32:00* Test Item Value Reference Range Interpretation Comments Urine Glucose (UA) (test code = 2349-9) 1+ NEGATIVE [facility]icsUrine Uuwjxdu6976-32-91 01:32:00* Test Item Value Reference Range Interpretation Comments Urine Ketones (test code = 97044-4) NEGATIVE NEGATIVE [facility] TomballUrine Zsdtkoayhsrl3422-50-58 01:32:00* Test Item Value Reference Range Interpretation Comments Urine Urobilinogen (test code = 74654-0) 0.2 0.2-1 [facility] TomballUrine Neugcaicm1105-94-20 01:32:00* Test Item Value Reference Range Interpretation Comments Urine Bilirubin (test code = 1978-6) NEGATIVE NEGATIVE [facility] TomballUrine Wjizm8314-02-05 01:32:00* Test Item Value Reference Range Interpretation Comments Urine Blood (test code = 18614-6) 4+ NEGATIVE H [facility] TomballUrine XDH6303-55-51 01:32:00* Test Item Value Reference Range Interpretation Comments Urine WBC (test code = 5821-4) >50 0-5 H [facility] TomballUrine JRF1754-17-13 01:32:00* Test Item Value Reference Range Interpretation Comments Urine RBC (test code = 70971-5) 21-50 0-5 H [facility] TomballUrine Klsvvtgo5790-44-28 01:32:00* Test Item Value Reference Range Interpretation Comments Urine Bacteria (test code = 49484-3) MANY NONE H [facility] TomballUrine Epithelial Fnfhc1873-88-43 01:32:00 * Test Item Value Reference Range Interpretation Comments Urine Epithelial Cells (test code = 86576-5) RARE NONE [facility] TomballInfluenza Virus Types A,B Antigen 2018-05-04 01:16:00* Test Item Value Reference Range Interpretation Comments Influenza Virus Types A,B Antigen (test code = 11143-3) NEGATIVE NEGATIVE [facility] TomballGroup A Streptococcus Dwhipg7577-62-90 01:16:00* Test Item Value Reference Range Interpretation Comments Group A Streptococcus Screen (test code = 90845-5) NEGATIVE NEG ATIVE [facility] TomballInfluenza Virus Types A,B Antigen 2018-05-04 01:16:00* Test Item Value Reference Range Interpretation Comments Influenza Virus Types A,B Antigen (test code = 28905-7) NEGATIVE NEGATIVE [facility]ballGroup A Streptococcus Irmmcq2374-27-57 01:16:00* Test Item Value Reference Range Interpretation Comments Group A Streptococcus Screen (test code = 07786-9) NEGATIVE NEG ATIVE [facility] TomballInfluenza Virus Types A,B Antigen 2018-05-04 01:16:00* Test Item Value Reference Range Interpretation Comments Influenza Virus Types A,B Antigen (test code = 51029-7) NEGATIVE NEGATIVE [facility]ballGroup A Streptococcus Bewgyq3301-21-54 01:16:00* Test Item Value Reference Range Interpretation Comments Group A Streptococcus Screen (test code = 07734-8) NEGATIVE NEG ATIVE [facility] TomballInfluenza Virus Types A,B Antigen 2018-05-04 01:16:00* Test Item Value Reference Range Interpretation Comments Influenza Virus Types A,B Antigen (test code = 00899-0) NEGATIVE NEGATIVE [facility]ballGroup A Streptococcus Xyqrjh2892-05-53 01:16:00* Test Item Value Reference Range Interpretation Comments Group A Streptococcus Screen (test code = 63781-2) NEGATIVE NEG ATIVE [facility] TomballInfluenza Virus Types A,B Antigen 2018-05-04 01:16:00* Test Item Value Reference Range Interpretation Comments Influenza Virus Types A,B Antigen (test code = 20437-5) NEGATIVE NEGATIVE [facility]ballGroup A Streptococcus Qsiwzw3535-53-97 01:16:00* Test Item Value Reference Range Interpretation Comments Group A Streptococcus Screen (test code = 63113-6) NEGATIVE NEG ATIVE [facility] TomballInfluenza Virus Types A,B Antigen 2018-05-04 01:16:00* Test Item Value Reference Range Interpretation Comments Influenza Virus Types A,B Antigen (test code = 02088-6) NEGATIVE NEGATIVE [facility]ballGroup A Streptococcus Kqjqry7203-25-90 01:16:00* Test Item Value Reference Range Interpretation Comments Group A Streptococcus Screen (test code = 04915-7) NEGATIVE NEG ATIVE [facility] TomballCT ABDOMEN/PELVIS GI6089-30-19 18:18:00 [place] [address] Patient Name: MANJIT LUO MR #: [id number] : 1980 Age/Sex: 37/M Req #: [id number] Adm Physician: Ordered by: NORY LEYVA DISPATCHER [employer] Report #: [id number] Location: ER Room/Bed: Procedure: 0311-[address]/CT [...] LEYVA NP CHEST SINGLE (NOT PORTABLE)2018-05-03 16:44:00 [place] [address] Patient Name: MANJIT LUO MR #: [id number] : 1980 Age/Sex: 37/M Req #: [id number] Adm Physician: Ordered by: NORY LEYVA DISPATCHER [employer] Report #: [id number] Location: ER Room/Bed: Procedure: 0311-007 2 DX/CHEST [...] 05/03/181644 COPY TO: NORY LEYVA NP Amylase Tzwjw7691-20-90 15:32:00* Test Item Value Reference Range Interpretation Comments Amylase Level (test code = 1798-8) 62 [facility] TomballLipase2019-03-11 15:32:00* Test Item Value Reference Range Interpretation Comments Lipase (test code = 3040-3) [facility] TomballAmylase Hofde8226-30-04 15:32:00* Test Item Value Reference Range Interpretation Comments Amylase Level (test code = 1798-8) 62 [facility] TomballLipase2019-03-11 15:32:00* Test Item Value Reference Range Interpretation Comments Lipase (test code = 3040-3) [facility] TomballAmylase Sqlmn4194-27-97 15:32:00* Test Item Value Reference Range Interpretation Comments Amylase Level (test code = 1798-8) 62 [facility] TomballLipase2019-03-11 15:32:00* Test Item Value Reference Range Interpretation Comments Lipase (test code = 3040-3) [facility] Jxhbu4112-54-29 15:32:00* Test Item Value Reference Range Interpretation Comments Amylase Level (test code = 1798-8) 62 [facility] TomballLipase2019-03-11 15:32:00* Test Item Value Reference Range Interpretation Comments Lipase (test code = 3040-3) [facility] TomballAmylase Umloe6261-92-07 15:32:00* Test Item Value Reference Range Interpretation Comments Amylase Level (test code = 1798-8) 62 [facility] TomballLipase2019-03-11 15:32:00* Test Item Value Reference Range Interpretation Comments Lipase (test code = 3040-3) 14 -78 [facility] TomballAmylase Xvkvh1400-81-44 15:32:00* Test Item Value Reference Range Interpretation Comments Amylase Level (test code = 1798-8) 62 25-125 [facility] TomballLipase2019-03-11 15:32:00* Test Item Value Reference Range Interpretation Comments Lipase (test code = 3040-3) 14 78 [facility] TomballBlood Icvkuqz4502-31-29 01:39:00* Test Item Value Reference Range Interpretation Comments Blood Culture (test code = 25914333) NO GROWTH AFTER 5 DAYS, FINAL REPORT [facility] TomballBedside Dyfgfjc8319-74-79 08:10:00* Test Item Value Reference Range Interpretation Comments Bedside Glucose (test code = 18244-6) 190 70-120 H Meter ID: [id number] [facility] TomballUrine Culture 2017-09-01 06:38:00* Test Item Value Reference Range Interpretation Comments Urine Culture (test code = 630-4) Organism: PSEUDOMONAS AERUGINOSA [facility] TomballUrine Rkcbotl9931-92-36 06:38:00* Test Item Value Reference Range Interpretation Comments Urine Culture (test code = 630-4) Organism: PSEUDOMONAS AERUGINOSA [facility] TomballUrine Mwgbvqm8036-36-56 06:38:00* Test Item Value Reference Range Interpretation Comments Urine Culture (test code = 630-4) Organism: PSEUDOMONAS AERUGINOSA [facility]landood Vpnljrw4628-04-85 01:39:00* Test Item Value Reference Range Interpretation Comments Blood Culture (test code = 08017086) NO GROWTH AFTER 72 HOURS [facility] Mktwd2658-76-47 05:13:00* Test Item Value Reference Range Interpretation Comments Sodium Level (test code = 2951-2) 136 136-145 [facility] TomballPotassium Sfjvq5841-91-28 05:13:00* Test Item Value Reference Range Interpretation Comments Potassium Level (test code = 2823-3) 4.7 3.5-5.1 [facility] TomballChloride Mcfvk4272-97-31 05:13:00* Test Item Value Reference Range Interpretation Comments Chloride Level (test code = 2075-0) 109 98-107 H [facility] TomballCarbon Dioxide Mwqac3030-71-36 05:13:00* Test Item Value Reference Range Interpretation Comments Carbon Dioxide Level (test code = 2028-9) 20 22-29 L [facility] TomballAnion Dzd9075-69-48 05:13:00* Test Item Value Reference Range Interpretation Comments Anion Gap (test code = 58509-2) 11.7 8-16 [facility] TomballBlood Urea Dbtxnvdg7871-63-27 05:13:00* Test Item Value Reference Range Interpretation Comments Blood Urea Nitrogen (test code = 3094-0) 20 7-26 [facility] TomballCreatinine2018-07-09 05:13:00* Test Item Value Reference Range Interpretation Comments Creatinine (test code = 2160-0) 1.79 0.72-1.25 H [facility] TomballBUN/Creatinine Syvxd8870-97-41 05:13:00* Test Item Value Reference Range Interpretation Comments BUN/Creatinine Ratio (test code = 3097-3) 11 6-25 [facility] TomballEstimat Glomerular Filtration Rate 2017-08-31 05:13:00* Test Item Value Reference Range Interpretation Comments Estimat Glomerular Filtration Rate (test code = 28160-2) 43 >60 L Ranges were taken from the National Kidney Disease Education Program and the [facility] literature.Reference ranges:60 or greater: [place]73-54 ( for 3 consecutive months): Chronic kidney disease 15 or less: Kidney failureH[facility] Healthcare TomballGlucose Mjvaz6837-65-39 05:13:00* Test Item Value Reference Range Interpretation Comments Glucose Level (test code = WIM2482) 165 74-118 H [facility] TomballCalcium Ptzzd9895-86-92 05:13:00* Test Item Value Reference Range Interpretation Comments Calcium Level (test code = 81887-4) 8.2 8.4-10.2 L [facility] TomballTotal Thgebxgna4718-12-58 05:11:00* Test Item Value Reference Range Interpretation Comments Total Bilirubin (test code = 1975-2) 0.5 0.2-1.2 [facility] TomballAspartate Amino Transf (AST/SGOT) 2017-08-30 05:11:00* Test Item Value Reference Range Interpretation Comments Aspartate Amino Transf (AST/SGOT) (test code = Aspartate Amino Transf (AST/SGOT)) 14 5-34 [facility] TomballAlanine Aminotransferase (ALT/SGPT) 2017-08-30 05:11:00* Test Item Value Reference Range Interpretation Comments Alanine Aminotransferase (ALT/SGPT) (test code = 1742-6) 40 0-55 [facility] TomballTotal Tpefqar1672-82-53 05:11:00* Test Item Value Reference Range Interpretation Comments Total Protein (test code = 2885-2) 7.4 6.5-8.1 [facility] TomballAlbumin2018-07-08 05:11:00* Test Item Value Reference Range Interpretation Comments Albumin (test code = 1751-7) 2.8 3.5-5.0 L [facility] TomballGlobulin2018-07-08 05:11:00* Test Item Value Reference Range Interpretation Comments Globulin (test code = 25380-6) 4.6 2.3-3.5 H [facility] TomballAlbumin/Globulin Mdlyh7750-56-56 05:11:00 * Test Item Value Reference Range Interpretation Comments Albumin/Globulin Ratio (test code = 1759-0) 0.6 0.8-2.0 L [facility] TomballAlkaline Tpnnlwsrvjy7851-73-60 05:11:00* Test Item Value Reference Range Interpretation Comments Alkaline Phosphatase (test code = 6768-6) 234 40-150 H [facility] TomballWhite Blood Cguct2593-49-31 04:54:00* Test Item Value Reference Range Interpretation Comments White Blood Count (test code = 6690-2) 5.33 4.8-10.8 [facility] TomballRed Blood Fcjwg3270-40-03 04:54:00* Test Item Value Reference Range Interpretation Comments Red Blood Count (test code = 789-8) 3.61 4.3-5.7 L [facility] TomballHemoglobin2018-07-08 04:54:00* Test Item Value Reference Range Interpretation Comments Hemoglobin (test code = 79278-6) 9.4 14.0-18.0 L [facility] TomballHematocrit2018-07-08 04:54:00* Test Item Value Reference Range Interpretation Comments Hematocrit (test code = 4544-3) 29.6 38.2-49.6 L [facility] TomballMean Corpuscular Qxcpmf6784-91-85 04:54:00* Test Item Value Reference Range Interpretation Comments Mean Corpuscular Volume (test code = 787-2) 82.0 81-99 [facility] TomballMean Corpuscular Nctzgwivxx4912-84-32 04:54:00* Test Item Value Reference Range Interpretation Comments Mean Corpuscular Hemoglobin (test code = 785-6) 26.0 28-32 L [facility] TomballMean Corpuscular Hemoglobin Concent 2017-08-30 04:54:00* Test Item Value Reference Range Interpretation Comments Mean Corpuscular Hemoglobin Concent (test code = 786-4) 31.8 31-35 [facility] TomballRed Cell Distribution Dyjyr9770-45-59 04:54:00* Test Item Value Reference Range Interpretation Comments Red Cell Distribution Width (test code = 02145-2) 16.5 11.7 -14.4 H [facility] TomballPlatelet Rlmqn1596-75-74 04:54:00* Test Item Value Reference Range Interpretation Comments Platelet Count (test code = 777-3) 115 140-360 L [facility] TomballNeutrophils (%) (Auto)2017-08-30 04:54:00 * Test Item Value Reference Range Interpretation Comments Neutrophils (%) (Auto) (test code = 15007-2) 73.6 38.7-80.0 [facility] TomballLymphocytes (%) (Auto)2017-08-30 04:54:00 * Test Item Value Reference Range Interpretation Comments Lymphocytes (%) (Auto) (test code = 736-9) 13.9 18.0-39.1 L [facility] TomballMonocytes (%) (Auto)2017-08-30 04:54:00* Test Item Value Reference Range Interpretation Comments Monocytes (%) (Auto) (test code = 5905-5) 9.8 4.4-11.3 [facility]ballEosinophils (%) (Auto)2017-08-30 04:54:00 * Test Item Value Reference Range Interpretation Comments Eosinophils (%) (Auto) (test code = 713-8) 2.1 0.0-6.0 [facility]ballBasophils (%) (Auto)2017-08-30 04:54:00* Test Item Value Reference Range Interpretation Comments Basophils (%) (Auto) (test code = 706-2) 0.2 0.0-1.0 [facility] TomballIM GRANULOCYTES %2017-08-30 04:54:00* Test Item Value Reference Range Interpretation Comments IM GRANULOCYTES % (test code = IM GRANULOCYTES %) 0.4 0.0- 1.0 [facility] TomballNeutrophils # (Auto)2017-08-30 04:54:00* Test Item Value Reference Range Interpretation Comments Neutrophils # (Auto) (test code = 751-8) 3.9 2.1-6.9 [facility] TomballLymphocytes # (Auto)2017-08-30 04:54:00* Test Item Value Reference Range Interpretation Comments Lymphocytes # (Auto) (test code = 65966-5) 0.7 1.0-3.2 L [facility] TomballMonocytes # (Auto)2017-08-30 04:54:00* Test Item Value Reference Range Interpretation Comments Monocytes # (Auto) (test code = 742-7) 0.5 0.2-0.8 [facility]ballEosinophils # (Auto)2017-08-30 04:54:00* Test Item Value Reference Range Interpretation Comments Eosinophils # (Auto) (test code = 711-2) 0.1 0.0-0.4 [facility]ballBasophils # (Auto)2017-08-30 04:54:00* Test Item Value Reference Range Interpretation Comments Basophils # (Auto) (test code = 704-7) 0.0 0.0-0.1 [facility] TomballAbsolute Immature Granulocyte (auto 2017-08-30 04:54:00* Test Item Value Reference Range Interpretation Comments Absolute Immature Granulocyte (auto (shin t code = Absolute Immature Granulocyte (auto) 0.02 0-0.1 [facility] TomballLactic Acid Jixsk2979-71-51 02:07:00* Test Item Value Reference Range Interpretation Comments Lactic Acid Level (test code = Lactic Acid Level) 6.9 4.5- 19.8 [facility] TomballLactic Acid Uehzl9236-51-71 02:07:00* Test Item Value Reference Range Interpretation Comments Lactic Acid Level (test code = Lactic Acid Level) 6.9 4.5- 19.8 [facility] TomballLactic Acid Jlohe7980-25-71 02:07:00* Test Item Value Reference Range Interpretation Comments Lactic Acid Level (test code = Lactic Acid Level) 6.9 4.5- 19.8 [facility] TomballUrine Erydr8607-75-49 01:57:00* Test Item Value Reference Range Interpretation Comments Urine Color (test code = 5778-6) RED YELLOW H [facility] TomballUrine Fnnsqbl4399-96-74 01:57:00* Test Item Value Reference Range Interpretation Comments Urine Clarity (test code = 62864-1) CLOUDY CLEAR H [facility] Mkamacg9158-47-23 01:57:00 * Test Item Value Reference Range Interpretation Comments Urine Specific [place] (test code = 5811-5) 1.020 1.010-1.02 5 [facility] [id number] 01:57:00* Test Item Value Reference Range Interpretation Comments Urine pH (test code = 43883-0) 6 5-7 [facility] Leukocyte Ifyurbqi6750-31-58 01:57:00* Test Item Value Reference Range Interpretation Comments Urine Leukocyte Esterase (test code = 5799-2) 2+ NEGATIVE H [facility] [place] Vlcwbqz8799-56-80 01:57:00* Test Item Value Reference Range Interpretation Comments Urine Nitrite (test code = 41874-1) NEGATIVE NEGATIVE [facility] [place] Jxotrcq1229-47-21 01:57:00* Test Item Value Reference Range Interpretation Comments Urine Protein (test code = 5804-0) 3+ NEGATIVE H [facility] [place] Glucose (UA)2017-08-29 01:57:00* Test Item Value Reference Range Interpretation Comments Urine Glucose (UA) (test code = 2349-9) NEGATIVE NEGATIVE [facility] [place] Oitbsqk0532-19-38 01:57:00* Test Item Value Reference Range Interpretation Comments Urine Ketones (test code = 39611-2) NEGATIVE NEGATIVE [facility] [place] Nowhxjcvmknn9978-58-66 01:57:00* Test Item Value Reference Range Interpretation Comments Urine Urobilinogen (test code = 97023-0) 0.2 0.2-1 [facility] [place] Diejsoawp6551-87-65 01:57:00* Test Item Value Reference Range Interpretation Comments Urine Bilirubin (test code = 1978-6) 1+ NEGATIVE H Confirmatory test currently unavailable. False positive results may occur.[facility] [place] Ofuhe8614-46-46 01:57:00* Test Item Value Reference Range Interpretation Comments Urine Blood (test code = 16074-1) 3+ NEGATIVE H [facility] [place] AED0078-61-85 01:57:00* Test Item Value Reference Range Interpretation Comments Urine WBC (test code = 5821-4) 50- 0-5 H [facility] [place] EXC2647-52-44 01:57:00* Test Item Value Reference Range Interpretation Comments Urine RBC (test code = 98626-4) 50- 0-5 H [facility] [place] Kudnnilp0300-53-28 01:57:00* Test Item Value Reference Range Interpretation Comments Urine Bacteria (test code = 68089-7) FEW NONE [facility] [place] Epithelial Xekmb0714-62-72 01:57:00 * Test Item Value Reference Range Interpretation Comments Urine Epithelial Cells (test code = 21341-1) RARE NONE [facility]2017-08-29 01:52:00 [place] [address] Patient Name: MANJIT LUO MR #: [id number] : 1980 Age/Sex: 37/M Req #: [id number] Adm Physician: Ordered by: MARIELLE MARSH MD Report #: [id number] Location: ER Room/Bed: Procedure: [id number] DX/CHEST SINGLE (ALONDRA BLE) Exam Date: 08/29/17 [...] 08/29/17152 COPY TO: MARIELLE MARSH MD Magnesium Kuomi1314-76-90 00:45:00* Test Item Value Reference Range Interpretation Comments Magnesium Level (test code = 06392-7) 1.3 1.3-2.1 [facility] [address], [place], [place] [address] Patient Name: MANJIT LUO MR #: [id number] : 1980 Age/Sex: 36/M Req #: [id number] Adm Physician: Ordered by: MARGAUX HILLS MD Report #: [id number] Location: ER Room/Bed: Procedure: [id number] CT/CT ABDOMEN/PELVIS WO Exam Date: 01/25/17 Exam [...]
== END 2019-12-27 12:31 | disposition home or self-care (01) | DRG 698 ==
LOC: ER 22:59 → ERHOLD 23:48 → MED/SURG2 12-20 00:09
PROVIDERS: ADMIT Internal Medicine; ATTEND Internal Medicine
PROC: 3E1M39Z Irrigation of Peritoneal Cavity using Dialysate, Percutaneous Approach (ICD-10-PCS; principal; 2019-12-21)
PROC: 3E1M39Z Irrigation of Peritoneal Cavity using Dialysate, Percutaneous Approach (ICD-10-PCS; 2019-12-23)
PROC: 3E1M39Z Irrigation of Peritoneal Cavity using Dialysate, Percutaneous Approach (ICD-10-PCS; 2019-12-24)
PROC: 3E1M39Z Irrigation of Peritoneal Cavity using Dialysate, Percutaneous Approach (ICD-10-PCS; 2019-12-25)
DX: T83.510A Infection and inflammatory reaction due to cystostomy catheter, initial encounter (principal); N18.6 End stage renal disease; N39.0 Urinary tract infection, site not specified; J90 Pleural effusion, not elsewhere classified; I12.0 Hypertensive chronic kidney disease with stage 5 chronic kidney disease or end stage renal disease; E83.51 Hypocalcemia; E10.43 Type 1 diabetes mellitus with diabetic autonomic (poly)neuropathy; E87.5 Hyperkalemia; Z99.2 Dependence on renal dialysis; Z90.5 Acquired absence of kidney; K31.84 Gastroparesis; Z79.4 Long term (current) use of insulin; E10.42 Type 1 diabetes mellitus with diabetic polyneuropathy; E10.22 Type 1 diabetes mellitus with diabetic chronic kidney disease; Z20.828 Contact with and (suspected) exposure to other viral communicable diseases; Z91.041 Radiographic dye allergy status
CPT/HCPCS: 36415; 74176; 80048; 80053; 81001; 82550; 82553; 82948; 84132; 84484; 85025; 87070; 87086; 87205; 89051; 93005; 96360; 96372; 99284; J0610; J1940; J2270; J2405; J2550; J2765; J7050; J7799; Q0162

== ENCOUNTER → 2020-01-13 | Outpatient (CLI) | payer BC ==
[~2020-01-13] MED LIST changes: +CARVEDILOL12.5 MG PO; +CEFAZOLIN SOD 1 GM/NS 50ML 50 ML IV ONE; +FAMOTIDINE20 MG PO; +FENTANYL CITRATE/PF 100MCG/2 ML INJ ONE; +HEPARIN SOD (PORCINE) 1000 UNIT/ML SDV ONE; +LIDOCAINE HCL 1% LOCAL INJ 20 ML VIAL ONE; +LOKELMA5 GM PO; +MIDAZOLAM HCL 2 MG/2 ML VIAL ONE; +NORCO 7.5-3251 EACH PO; +PEPCID20 MG PO; +REGLAN5 MG PO; +SODIUM CHLORIDE 0.9% 250ML 250 ML ONE; +ZOFRAN4 MG SL
[2020-01-13 14:20] LABS: BASOPHILS % 0.6 % (0.0-1.0); EOSINOPHILS # (AUTO) 0.2 (0.0-0.4); EOSINOPHILS % 4.4 % (0.0-6.0); HEMATOCRIT 31.3 % (38.2-49.6); HEMOGLOBIN 10.2 g/dL (14.0-18.0); LYMPHOCYTES # (AUTO) 1.2 (1.0-3.2); LYMPHOCYTES % 22.8 % (18.0-39.1); MEAN CORPUSCULAR HEMOGLOBIN 25.4 pg (28-32); MEAN CORPUSCULAR HGB CONC 32.6 g/dL (31-35); MEAN CORPUSCULAR VOLUME 78.1 fL (81-99); MONOCYTES # (AUTO) 0.3 (0.2-0.8); MONOCYTES % 5.9 % (4.4-11.3); NEUTROPHILS # (AUTO) 3.6 (2.1-6.9); NEUTROPHILS % 65.2 % (38.7-80.0); PLATELET COUNT 149 x10e3/uL (140-360); RED BLOOD COUNT 4.01 x10e6/uL (4.3-5.7)
[2020-01-13 14:31] LABS: INR 1.1; PROTHROMBIN TIME 14.8 seconds (11.9-14.5)
[2020-01-13 14:32] LABS: PARTIAL THROMBOPLASTIN TIME 31.1 seconds (23.8-35.5)
== END ==
LOC: DX 13:11
PROVIDERS: ATTEND Internal Medicine Nephrology
DX: N18.6 End stage renal disease (principal)
CPT/HCPCS: 36415; 36558; 76937; 77001; 85025; 85610; 85730; J0690; J1644; J2001; J2250; J3010; J7050; 99152; 99153

== ENCOUNTER 2020-01-16 12:39 | Inpatient (IN) | payer BC ==
[~2020-01-16] VITALS: Ht 185.4 cm; Wt 98.9 kg
[~2020-01-16 12:39] MED LIST changes: -CEFAZOLIN SOD 1 GM/NS 50ML 50 ML IV ONE; +GLYCOPYRROLATE INJ 0.2 MG/ML VIAL ONE; -HEPARIN SOD (PORCINE) 1000 UNIT/ML SDV ONE; -LIDOCAINE HCL 1% LOCAL INJ 20 ML VIAL ONE; +LIDOCAINE HCL 2% JELLY 5 ML TUBE ONE; +LIDOCAINE HCL 2% LOCAL INJ 5 ML SDV VIAL INJ ONE; +MORPHINE SULFATE INJ 10 MG/ML ONE; +NEOSTIGMINE 1 MG/ML 10ML VIAL ONE; +ONDANSETRON HCL INJ 2MG/ML 2ML 2 MG/ML VIAL ONE; +PROPOFOL IV EMULSION 10 MG/ML 20 ML VIAL ONE; +ROCURONIUM BROMIDE 10 MG/ML 5ML VIAL IV ONE; +SEVOFLURANE INHAL SOLN 250 ML PEN BTL ONE; -SODIUM CHLORIDE 0.9% 250ML 250 ML ONE
[2020-01-16] MEDS ORDERED: SODIUM CHLORIDE 0.9% 500ML 500 ML ONE (12:50)
[2020-01-16] MEDS ORDERED: MEROPENEM 1GM 100 ML IV ONE (13:04)
[2020-01-16 13:47] LABS: BASOPHILS % 0.4 % (0.0-1.0); EOSINOPHILS # (AUTO) 0.1 (0.0-0.4); EOSINOPHILS % 2.1 % (0.0-6.0); HEMATOCRIT 29.4 % (38.2-49.6); HEMOGLOBIN 9.5 g/dL (14.0-18.0); LYMPHOCYTES # (AUTO) 1.1 (1.0-3.2); LYMPHOCYTES % 20.6 % (18.0-39.1); MEAN CORPUSCULAR HEMOGLOBIN 25.1 pg (28-32); MEAN CORPUSCULAR HGB CONC 32.3 g/dL (31-35); MEAN CORPUSCULAR VOLUME 77.8 fL (81-99); MONOCYTES # (AUTO) 0.3 (0.2-0.8); MONOCYTES % 6.4 % (4.4-11.3); NEUTROPHILS # (AUTO) 3.7 (2.1-6.9); NEUTROPHILS % 69.6 % (38.7-80.0); PLATELET COUNT 111 x10e3/uL (140-360); RED BLOOD COUNT 3.78 x10e6/uL (4.3-5.7); RED CELL DISTRIBUTION WIDTH 16.2 % (11.7-14.4)
[2020-01-16] MEDS ORDERED: INSULIN REGULAR, HUMAN 100 UNIT/1 ML 3ML VIAL ONE (13:52)
[2020-01-16 13:56] LABS: INR 1.17; PROTHROMBIN TIME 15.5 seconds (11.9-14.5)
[2020-01-16 14:04] LABS: ALBUMIN 2.4 g/dL (3.5-5.0); ALBUMIN/GLOBULIN RATIO 0.5 (0.8-2.0); ALKALINE PHOSPHATASE 208 IU/L (40-150); ANION GAP 13.8 mmol/L (8-16); BLOOD UREA NITROGEN 42 mg/dL (7-26); BUN/CREATININE RATIO 6 (6-25); CARBON DIOXIDE 23 mmol/L (22-29); CHLORIDE 102 mmol/L (98-107); CREATININE, SERUM 7.15 mg/dL (0.72-1.25); EST GLOMERULAR FILTRATION RATE 9 ML/MIN (60-); GLUCOSE 265 mg/dL (74-118); POTASSIUM 3.8 mmol/L (3.5-5.1); SODIUM 135 mmol/L (136-145)
[2020-01-16 14:05] LABS: ALANINE AMINOTRANSFERASE < 6 IU/L (0-55); CALCIUM 6.7 mg/dL (8.4-10.2)
[2020-01-16] MEDS ORDERED: NALOXONE HCL INJ 0.4 MG/ML AMP IV PRN (14:30)
[2020-01-16] MEDS ORDERED: GENTAMICIN SULFATE 40 MG/ML 2 ML VIAL ONE (14:53)
--- OUTSIDE RECORDS SUMMARY | 2020-01-16 16:27 | XMS REPORT | Clinical Summary ---
Author Author Alejandro [facility] Organization [place] [facility] Address Unknown Phone Unavailable Care Team Providers Care Manager Banking Name Role Phone Donald Potts MD PCP [...] Encounters Care Team Description Date Type Specialty Irma Lopez RN Referral - Kidney Txp 01/12/2020 Telephone Transplant Arcelia Abrams RN Follow up with patient (Kidney alone) 12/06/2019 Telephone Transplant Linda Fox ACNP 12/05/2019 Documentation Transplant Melani Finney MA MISSED CALL 12/02/2019 Telephone Transplant Bisi Crawford RN Evaluation Status 09/15/2019 Telephone Transplant Bisi Crawford RN 09/15/2019 Documentation Transplant VilaGaurav Kidney Follow-up (TXP - [facility] [place] - RENAL/PANCREAS TXP AUTH PENDING) 09/14/2019 Documentation [...] Transplant Gaurav Vila Kidney Follow-up (TXP - [facility] - RENAL EVAL APPRVL) 03/29/2019 Documentation Transplant Bisi Crawford RN End stage renal disease (HCC) (Primary D x); Type 1 diabetes mellitus with other specified complication (HCC) 02/25/2019 Orders Only Transplant Melani Finney MA Referral - Kidney/Pancreas Txp 02/21/2019 Telephone Transplant after 01/15/2019 Surgical History Surgery Date Site/Laterality Comments JOINT REPLACEMENT Rt knee external fixator CHOLECYSTECTOMY 02/23/2015 - 02/23/2016 CYSTOSCOPY W/ URETERAL 11/24/2015 STENT PLACEMENT - 12/24/2015 ARTHROPLASTY, KNEE, TOTAL 03/27/2016 Knee/N/A Proc edure: RIGHT KNEE ANTIBIOTIC REMOCAL, RIGHT TOTAL KNEE ARTHROPLASTY; Surgeon: Silke Chowdary MD; Location: [facility] 19 OR; ervice: Orthopedics; Laterality: N/A; Medical devices from this surgery are i n the Implants section. SUPRAPUBIC CATHETER 02/23/2017 - INSERTION 03/25/2017 CYSTOSCOPY W/ URETERAL 12/24/2016 STENT REMOVAL - 01/22/2017 REVISION, ARTHROPLASTY, 04/16/2017 Knee/Right Proced ure: RIGHT TOTAL KNEE ARTHROPLASTY REVISION; KNEE COMPLEX WOUND CLOSURE, EXCI JAMAL DISTAL FEMUR; Surgeon: Silke Chowdary MD; Location: [facility] 19 OR; Service: Orthopedics; Laterality: Right; Medical devices from this surgery are i n the Implants section. CATARACT EXTRACTION Right CYSTOSCOPY, WITH URETERAL 02/15/[address] [facility] STENT REPLACEMENT NEPHRECTOMY, RADICAL 06/13/2019 Right secondary to pyelonephritis recently with chronic hydronephrosis with stent Medical History Medical History Date Comments Hypertension Depression Anxiety Chronic UTI Stent placement [facility] 1 will have replaced 03-19-2016 Anemia Broken leg Accident at work , had exer nal fixator, infection now with spacer Anesthesia Pt had tachycardia after on e anesthesia and had to be put back to sleep,NFHAP. No chest pain, no SOB, exercises with PT at rehab facilit y he is at, wears glasses and all teeth secure. Advanced directives, Copy given, pt also kika hall counseling/discussion var[place]co notified and will call patient Patient is [facility] Kika Tierney noti fied and will call patient. Suprapubic catheter (HCC) 03/24/2017 in placed. m id abdomen Neurogenic bladder Wears glasses Does not exercise due to knee problem. Gallstones 2009 with surgery Dentition All teeth intact and secure d PONV (postoperative nausea and vomiting) Chronic kidney disease (CKD), stage IV (severe) ([facility]) History of pancreatitis Gall stone Foot drop, [...] Serial / L ot Implanted Type Area [facility] 11/22/2025 [id number] / / [id number] Screw Bone Canc Dome 6.5x25mm Ltxf Hip Joint Right: Knee DEPUY [place] - [id number] Implants ORTHO Implanted: Qty: 1 on 03/27/2016 by Silke Chowdary MD at [facility] 01/22/2026 [id number] / / [id number] Screw Bone Canc Dome 6.5x25mm Ltxf Hip Joint Right: Knee DEPUY [place] - [id number] Implants ORTHO Implanted: Qty: 1 on 03/27/2016 by Silke Chowdary MD at [facility] 10/23/2026 [id number] / / [id number] [place] Stem [id number] Fluted - IPM Right: Knee DEPUY [id number] IMPLANT ORTHOPAEDI Implanted: Qty: 1 on 04/16/2017 by [employer] Silke Chowdary MD at [facility] 12/23/2026 [id number] / / [id number] [place] Fem Slv Ful Por 40mm - IPM Right: Knee DEPUY [id number] IMPLANT ORTHOPAEDI Implanted: Qty: 1 on 04/16/2017 by [employer] Silke Chowdary MD at [facility] 11/22/2025 [id number] / / [id number] Srom [facility] Dist Aug Xs/S/ 10mm - IPM Right: Knee DEPUY [id number] IMPLANT ORTHOPAEDI Implanted: Qty: 1 on 04/16/2017 by [employer] Silke Chowdary MD at [facility] 11/22/2024 [id number] / / [id number] Srom [facility] Dist Aug Xs/S/ 10mm - IPM Right: Knee DEPUY [id number] IMPLANT ORTHOPAEDI Implanted: Qty: 1 on 04/16/2017 by [employer] Silke Chowdary MD at [facility] 10/23/2021 [id number] / / [id number] [facility] W/Pin Med Rt 71x66 - IPM Right: Knee DEPUY [id number] IMPLANT ORTHOPAEDI Implanted: Qty: 1 on 04/16/2017 by [employer] Silke Chowdary MD at [facility] 10/24/2019 [id number] / / [id number] Lps Univ Tib Hin Ins Med 31mm - IPM Right: Knee DEPUY [id number] IMPLANT ORTHOPAEDI Implanted: Qty: 1 on 04/16/2017 by [employer] Silke Chowdary MD at [facility] 01/22/2026 [id number] / / [id number] Augment Fml P.F.C Sigma Distl Rt Sz Knee Joint Right: Kne e DEPUY 5 4mm - [id number] Implants ORTHO Implanted: Qty: 1 on 03/27/2016 by Silke Chowdary MD at [facility] 01/22/2026 [id number] / / [id number] Stem Tib Cementd 07z19wd P.F.C Knee Joint Right: Knee DEPUY Sigma - [id number] Implants ORTHO Implanted: Qty: 1 on 03/27/2016 by Silke Chowdary MD at [facility] 10/22/2020 [id number] / / [id number] Augment Fml P.F.C Sigma Distl Rt Sz Knee Joint Right: Kne e DEPUY 5 8mm - [id number] Implants ORTHO Implanted: Qty: 1 on 03/27/2016 by Silke Chowdary MD at [facility] 09/22/2025 [id number] / / [id number] Stem Tib Cementd [id number] Knee Joint Right: Knee DEPUY P.F.C.Sigma - [id number] Implants ORTHO Implanted: Qty: 1 on 03/27/2016 by Silke Chowdary MD at [facility] 12/23/2020 [id number] / / [id number] Patella Prosths Oval / Dome 3-Post Knee Joint Right: Knee DEPUY 38mm Std Uhmwpe - [id number] Implants ORTHO Implanted: Qty: 1 on 03/27/2016 by Silke Chowdary MD at [facility] 05/23/2020 [id number] / / [id number] Insert Tib Stblzd Rp Sz 5 25mm Knee Joint Right: Knee DEPUY P.F.C Sigma - [id number] Implants ORTHO Implanted: Qty: 1 on 03/27/2016 by Silke Chowdary MD at [facility] 02/22/2026 [id number] / / [id number] Tray Rev Mbt 5x53.1x80.6x61.8mm - Knee Joint Right: Knee DEPUY [id number] Implants ORTHO Implanted: Qty: 1 on 03/27/2016 by Silke Chowdary MD at [facility] 09/22/2025 [id number] / / [id number] Component Fml Rt N-Por Tc3 Sz 5 Knee Joint Right: Knee DEPUY [id number] P.F.C Sigma - [id number] Implants ORTHO Implanted: Qty: 1 on 03/27/2016 by Silke Chowdary MD at [facility] 01/22/2026 [id number] / / [id number] Adapter Fml P.F.C Sigma 5deg - Knee Joint Right: Knee DEPUY [id number] Implants ORTHO-KNEE Implanted: Qty: 1 on 03/27/2016 by Silke Gutierres MD at [facility] 11/22/2025 [id number] / / [id number] Adapter Fml P.F.C Sigma Ofst Brutus Knee Joint Right: Knee DEPUY +2/-2mm - [id number] Implants ORTHO-KNEE Implanted: Qty: 1 on 03/27/2016 by Silke Gutierres MD at [facility] 01/22/2017 [id number] / / [id number] Cement Bone Hiviscocty 40gr Surgical Right: Knee DE PUY Smartset - [id number] Bone ORTHO Implanted: Qty: 2 on 03/27/2016 by Silke Monge MD at [facility] 12/23/2016 [id number] / / [id number] Cement Bone Hiviscocty 40gr Surgical Right: Knee DE PUY Smartset - [id number] Bone ORTHO Implanted: Qty: 1 on 03/27/2016 by Silke Monge MD at [facility] 10/23/2018 [id number] / / [id number] Cement Bone Hiviscocty 40gr Surgical Right: Knee DE PUY Smartset - [id number] Bone ORTHO Implanted: 04/16/2017 at [facility] (Quantity not on file) 12/24/2020 [id number] / / [id number] Cement Bone Prep Univl Insrtr Sculp Surgical Right: Kne e SANDOR Fml [place] Suct Sm - [id number] Implants; IN STRUMENT Implanted: Qty: 1 on 03/27/2016 by [employer]; Silke Gutierres MD at [facility] Extenders; Surgical Wires [id number] / / Immobilizer Knee Tripnl Dlx W/ Patl Surgical N/A: N/A DEROYAL Strp Univl Canvas 24in - [id number] Implants; IN DUSTRIES Implanted: 04/16/2017 at [facility] Expanders; HOSPITAL (Quantity not on file) Extenders; [...] (HCC) URINE CULTURE Routine 04/06/2019 8:57 AM MANAGING SUPERVISOR TREPONEMA PALLIDUM AB Routine 04/06/2019 8:00 AM MANAGING SUPERVISOR RPR Routine 04/06/2019 8:00 AM MANAGING SUPERVISOR HEPATITIS A ANTIBODY IGM Routine 04/06/2019 8:00 AM MANAGING SUPERVISOR ESTIMATED GFR Routine 04/06/2019 8:00 AM MANAGING SUPERVISOR DRUG YUEN 9, SER/LILIAN, SCRN Routine 04/06/2019 End stage renal disease W/RFLX TO CONF 8:00 AM MANAGING SUPERVISOR (HCC) Type 1 diabetes mellitus with other specified complication (HCC) ABO/RH Routine 04/06/2019 End stage renal disease 8:00 AM MANAGING SUPERVISOR (HCC) Type 1 diabetes mellitus with other specified complication (HCC) NICOTINE AND COTININE, Routine 04/06/2019 End sta ge renal disease SERUM 8:00 AM MANAGING SUPERVISOR (HCC) Type 1 diabetes mellitus with other specified complication (HCC) IA-2 ANTIBODY Routine 04/06/2019 End stage renal disease 8:00 AM MANAGING SUPERVISOR (HCC) Type 1 diabetes mellitus with other specified complication (HCC) ISLET CELL AB, IGG Routine 04/06/2019 End stage r enal disease 8:00 AM MANAGING SUPERVISOR (HCC) Type 1 diabetes mellitus with other specified complication (HCC) GLUTAMIC ACID Routine 04/06/2019 End stage renal disease DECARBOXYLASE AB 8:00 AM MANAGING SUPERVISOR (HCC) Type 1 diabetes mellitus with other specified complication (HCC) HEMOGLOBIN A1C Routine 04/06/2019 End stage renal disease 8:00 AM MANAGING SUPERVISOR (HCC) Type 1 diabetes mellitus with other specified complication (HCC) C-PEPTIDE Routine 04/06/2019 End stage renal disease 8:00 AM MANAGING SUPERVISOR (HCC) Type 1 diabetes mellitus with other specified complication (HCC) PARTIAL THROMBOPLASTIN Routine 04/06/2019 End sta ge renal disease TIME (PTT) 8:00 AM MANAGING SUPERVISOR (HCC) Type 1 diabetes mellitus with other specified complication (HCC) PROTHROMBIN TIME WITH INR Routine 04/06/2019 End stage renal disease 8:00 AM MANAGING SUPERVISOR (HCC) Type 1 diabetes mellitus with other specified complication (HCC) HC COMPLETE BLD COUNT Routine 04/06/2019 End stag e renal disease W/AUTO DIFF 8:00 AM MANAGING SUPERVISOR (HCC) Type 1 diabetes mellitus with other specified complication (HCC) SYPHILIS TOTAL ANTIBODY Routine 04/06/[address] age renal disease 8:00 AM MANAGING SUPERVISOR (HCC) Type 1 diabetes mellitus with other specified complication (HCC) HEPATITIS C ANTIBODY Routine 04/06/2019 End stage renal disease 8:00 AM MANAGING SUPERVISOR (HCC) Type 1 diabetes mellitus with other specified complication (HCC) HEPATITIS B SURFACE Routine 04/06/2019 End stage renal disease ANTIGEN 8:00 AM MANAGING SUPERVISOR (HCC) Type 1 diabetes mellitus with other specified complication (HCC) HEPATITIS B SURFACE AB, Routine 04/06/[address] age renal disease QUANTITATIVE 8:00 AM MANAGING SUPERVISOR (HCC) Type 1 diabetes mellitus with other specified complication (HCC) HEPATITIS B CORE ANTIBODY Routine 04/06/2019 End stage renal disease TOTAL 8:00 AM MANAGING SUPERVISOR (HCC) Type 1 diabetes mellitus with other specified complication (HCC) HEPATITIS A ANTIBODY Routine 04/06/2019 End stage renal disease TOTAL 8:00 AM MANAGING SUPERVISOR (HCC) Type 1 diabetes mellitus with other specified complication (HCC) HIV AG/AB COMBINATION Routine 04/06/2019 End stag e renal disease 8:00 AM MANAGING SUPERVISOR (HCC) Type 1 diabetes mellitus with other specified complication (HCC) URINALYSIS SCREEN AND Routine 04/06/2019 End stag e renal disease MICROSCOPY, WITH REFLEX 8:00 AM MANAGING SUPERVISOR (HCC) TO CULTURE Type 1 diabetes mellitus with other specified complication (HCC) COMPREHENSIVE METABOLIC Routine 04/06/[address] age renal disease PANEL 8:00 AM MANAGING SUPERVISOR (HCC) Type 1 diabetes mellitus with other specified complication (HCC) after 01/15/2019 Results * POC glucose (08/19/2019 12:21 PM CDT) Only the most recent of 22 results within the time period is included. POC glucose 145 (H) 65 - 99 mg/dL [facility] Comment: [facility] Color Control Supervisor Name: [facility] Device ID: [id number] Chartable: [facility] Notified RN Specimen Blood Performing Organization Address City/State/ZIP Code P pascale Number [facility] DEPARTMENT OF [address] [place] [address] PATHOLOGY AND GENOMIC MEDICINE ALEJANDRO [facility] [address] [place] [address] * Urine culture (08/18/2019 10:47 PM CDT) Only the most recent of 3 results within the time period is included. Urine culture No growth after 24 hours [facility] isolate Comment: [facility] Specimen Information HOSPITAL Specimen Source: Urine Specimen Site: Catheterized Specimen Urine - Catheterized Performing Organization Address City/[facility]/ZIP Code P pascale Number [facility] [place] [address] PATHOLOGY AND [facility] MEDIC[facility] [address] * Urinalysis screen and microscopy, with reflex to culture (08/18/2019 9:05 PM CDT) Only the most recent of 3 results within the time period is included. Specimen site Catheterized [facility] Color, UA Straw [facility] Appearance, UA Hazy [facility] Specific 1.012 1.001 - 1.035 [facility] gravity, [facility] pH, UA 5.0 5.0 - 8.5 [facility] Protein, UA 1+ (A) Negative [facility] Glucose, UA 2+ (A) Negative [facility] Ketones, UA Negative Negative [facility] Bilirubin, UA Negative Negative [facility] Blood, UA Moderate (A) Negative [facility] Nitrite, UA Negative Negative [facility] Urobilinogen, <2.0 <2.0 [facility] Leukocyte Small (A) Negative [facility] WBC, UA 25 (H) 0 - 1 /HPF [facility] RBC, UA 4 0 - 5 /HPF [facility] Bacteria, UA Few None seen [facility] Yeast, UA None seen [facility] Yeast with None seen [facility] Specimen Urine Performing Organization Address [facility]/ZIP Code P p[place]ale Number [facility] [place] [address] PATHOLOGY AND [facility] [address] * Hepatitis B surface antigen (08/16/2019 4:45 AM CDT) Only the most recent of 2 results within the time period is included. Hepatitis B Non-reactive Non-reactive [facility] Ag [facility] Specimen Blood Performing Organization Address City/[facility]/ZIP Code P p[place] Number [facility] [place] [address] PATHOLOGY AND [facility] [address] * COVID-19 qualitative PCR (08/16/2019 12:30 AM CDT) Interpretation Negative results do not STYLES preclude 2019-nCoV infection [facility] and should not be used as the HOSPITAL sole basis for treatment or other patient management decisions. Negative results must be combined with clinical observations, patient history, and epidemiological information. COVID-19 Not-Detected Not-Detected [facility] qualitative PCR [facility] result HOSPITAL COVID-19 See link below for PDF Lab [facility] qualitative PCR ReportComment: Case Number: [facility] [id number] HOSPITAL Specimen Performing Organization Address City/[facility] P pascale Number [facility] DEPARTMENT OF [address] [place] [address] PATHOLOGY AND GENOMIC MEDICINE [address] * Estimated GFR (08/15/2019 4:42 AM CDT) Only the most recent of 4 results within the time period is included. [facility] Estimated GFR 13 (A) mL/min/1.73 m2 [facility] Comment: [facility] HOSPITAL Interpretation G1 >=90 Normal or high G2 [...] published in 2014. Specimen Performing Organization Address City/[facility] P pascale Number [facility] DEPARTMENT OF [address] [place] [address] PATHOLOGY AND GENOMIC MEDICINE [address] * CBC with platelet and differential (08/15/2019 4:42 AM CDT) Only the most recent of 3 results within the time period is included. Pathologist [facility] WBC 3.73 (L) 4.50 - 11.00 k/uL [facility] RBC 4.16 (L) 4.40 - 6.00 m/uL [facility] HGB 10.1 (L) 14.0 - 18.0 g/dL [facility] HCT 34.5 (L) 41.0 - 51.0 % [facility] MCV 82.9 82.0 - 100.0 fL [facility] MCH 24.3 (L) 27.0 - 34.0 pg [facility] MCHC 29.3 (L) 31.0 - 37.0 g/dL [facility] RDW - SD 42.0 37.0 - 55.0 fL [facility] MPV 8.5 (L) 8.8 - 13.2 fL [facility] Platelet count 190 150 - 400 k/uL [facility] Nucleated RBC 0.00 /100 WBC [facility] Neutrophils 56.8 39.0 - 69.0 % [facility] Lymphocytes 30.3 25.0 - 45.0 % [facility] Monocytes 7.5 0.0 - 10.0 % [facility] Eosinophils 3.5 0.0 - 5.0 % [facility] Basophils 0.3 0.0 - 1.0 % [facility] Immature 1.6 (H)Comment: "Immature 0.0 - 1.0 % [facility] granulocytes granulocytes" (promyelocytes, METHOD IST myelocytes, metamyelocytes) [facility] Specimen Blood Performing Organization Address City/[facility] [place] [address] PATHOLOGY AND GENOMIC MEDICINE [address] * Hemoglobin A1c (08/15/2019 4:42 AM CDT) Only the most recent of 2 results within the time period is included. Hemoglobin A1C 6.5 (H) 4.0 - 5.6 % [facility] Comment: [facility] HbA1c cutoffs for diagnosing HOSPITAL diabetes: 4.0% - 5.6% = normal 5.7% - 6.4% = increased risk for diabetes (prediabetes)9 >=6.5% = diabetes9 Goals for glycemic control (ADA 2016) < 7.0% Target for non adults with diabetes. More or less stringent targets may be appropriate for individual patients. <7.5% Target for Children and adolescents with type 1 diabetes. Specimen Blood Performing Organization Address City/State/[facility] [place] [address] PATHOLOGY AND GENOMIC MEDICINE [address] * Basic metabolic panel (08/15/2019 4:42 AM CDT) Sodium 139 135 - 148 mEq/L [facility] Potassium 4.4 3.5 - 5.0 mEq/L [facility] Chloride 101 98 - 112 mEq/L [facility] CO2 23 (L) 24 - 31 mEq/L [facility] Anion gap 15@ANIO 7 - 15 mEq/L [facility] BUN 36 (H) 6 - 20 mg/dL [facility] Creatinine 5.25 (H) 0.70 - 1.20 mg/dL [facility] Glucose 146 (H) 65 - 99 mg/dL [facility] Calcium 8.2 (L) 8.3 - 10.2 mg/dL [facility] Specimen Blood Performing Organization Address [facility] P pascale Number [facility] DEPARTMENT OF [address] [place] [address] PATHOLOGY AND GENOMIC MEDICINE [address] * ECG 12 lead (08/15/2019 1:09 AM CDT) Pathologist [facility] Ventricular 99 [facility]USE rate Atrial rate 99 [facility] MUSE [place] interval 106 [facility] QRSD interval 92 [facility] QT interval 370 [facility] QTC interval 474 [facility] P axis 1 26 [facility] M[facility] QRS axis 1 1 [facility] T wave axis 75 [facility] EKG impression Sinus rhythm with short [facility] MUSE [place]-Cannot rule out Inferior infarct , age undetermined-Abnormal ECG-In automated comparison with ECG of 08-APR-2017 16:07,-[place] interval has decreased-Questionable change in QRS axis-ST no longer elevated in Inferior leads-T wave amplitude has decreased in Inferior leads-Nonspecific T wave abnormality now evident in Lateral leads-QT has lengthened- Specimen Narrative Performed At This result has an attachment that is n ot available. Performing Organization Address [facility] [place] [address] * Crystal analysis (08/14/2019 6:30 PM CDT) Pathologist [facility] Crystal KneeComment: Right knee joint STYLES analysis aspirate [facility] specimen type HOSPITAL Monosodium None seen None seen [facility] CPPD crystals None seen None seen STYLES [facility] Specimen Fluid Performing Organization Address City/[facility]/ZIP Code P p[place] Number [facility] [place] [address] PATHOLOGY AND GENOMIC MEDICINE [address] * Cell count and differential, body fluid (08/14/2019 6:30 PM CDT) Misc fluid type Synovial [facility] Color, fluid Red [facility] Appearance, Hazy [facility] fluid [facility] RBC, fluid 36,000 /CMM [facility] Nucleated 20,934 /CMM [facility] cells, [facility] Fluid See Diff [facility] mononuclear [facility] Neutrophils, 89 % [facility] Lymphocytes, 2 % [facility] Macrophages, 9 % [facility] Specimen Fluid Performing Organization Address [facility] P pascale Number [facility] [place] [address] PATHOLOGY AND GENOMIC MEDICINE [address] * Fungus smear (08/14/2019 6:28 PM CDT) Fungus smear No fungi observed. [facility] Comment: [facility] Specimen Information HOSPITAL Specimen Source: Specimen Site: Knee Specimen Knee Performing Organization Address City/[facility] P pascale Number [facility] [place] [address] PATHOLOGY AND GENOMIC MEDICINE [address] * AFB culture (08/14/2019 6:28 PM CDT) AFB culture No growth after 6 weeks of [facility] isolate incubation. [facility] Comment: HOSPITAL Specimen Information Specimen Source: Specimen Site: Knee Specimen Knee Performing Organization Address City/[facility]/ZIP [facility] P pascale Number [facility] [place] [address] PATHOLOGY AND GENOMIC MEDICINE [address] * AFB stain (08/14/2019 6:28 PM CDT) AFB stain No acid fast bacilli (AFB) [facility] seen. [facility] Comment: HOSPITAL Specimen Information Specimen Source: Specimen Site: Knee Specimen Knee Performing Organization Address City/[facility]/ZIP Code P [place] Number [facility] [place] [address] PATHOLOGY [place] [address] HOSPITAL * Fungus culture (08/14/2019 6:28 PM CDT) Fungus culture No growth after 4 weeks of [facility] isolate incubation. [facility] Comment: HOSPITAL Specimen Information Specimen Source: Specimen Site: Knee Specimen Knee Performing Organization Address City/State/ZIP Code P [place] Number [facility] [place] [address] PATHOLOGY AND [facility] [place] [address] HOSPITAL * Anaerobic culture (08/14/2019 6:28 PM CDT) Anaerobic No anaerobic organisms [facility] culture isolate isolated. [facility] Comment: HOSPITAL Specimen Information Specimen Source: Specimen Site: Knee Specimen Synovium - Knee Performing Organization Address City/[facility]/ZIP Code [place] Number [facility] [place] [address] PATHOLOGY AND [facility] [address] * Aerobic culture (08/14/2019 6:03 PM CDT) Aerobic culture No growth after 3 days. STYLES isolate No growth after 4 days. HINDU Comment: HOSPITAL Specimen Information Specimen Source: Specimen Site: Knee Specimen Knee Performing Organization Address City/[facility]/ZIP Code P pascale Number [facility] [place] [address] PATHOLOGY AND [facility] [address] * Gram stain (08/14/2019 6:03 PM CDT) Gram stain Many WBC's STYLES isolate No organisms seen HINDU Comment: HOSPITAL Specimen Information Specimen Source: Specimen Site: Knee Specimen Knee Performing Organization Address City/[facility]/ZIP Code P pascale Number [facility] [place] [address] PATHOLOGY AND [facility] [address] * Blood culture, aerobic & anaerobic (08/14/2019 4:45 PM CDT) Only the most recent of 2 results within the time period is included. Blood culture No growth after 5 days of [place] isolate incubation. [facility]U Comment: HOSPITAL Specimen Information Specimen Source: Blood Specimen Site: Unspecified Specimen Blood Performing Organization Address City/State/ZIP Code P pascale Number [facility] DEPARTMENT OF [address] [place] [address] PATHOLOGY AND [facility] [address] * Partial thromboplastin time, activated (08/14/2019 4:15 PM CDT) Only the most recent of 2 results within the time period is included. [facility] PTT 35.3 23.0 - 36.0 sec [place] Comment: HINDU PTT therapeutic range for HOSPITAL unfractionated heparin is 61.0-112.0 seconds which corresponds to Anti-Xa 0.3-0.7 U/ml. Specimen Blood Performing Organization Address City/State/ZIP Code P pascale Number [facility] [place] [address] PATHOLOGY AND [facility] [address] * Sedimentation rate (08/14/2019 4:15 PM CDT) [facility] Sedimentation 87 (H) 0 - 10 mm/hr [facility] Specimen Blood Performing Organization Address City/[facility]/ZIP [facility] P pascale Number [facility] [place] [address] PATHOLOGY AND [facility] [address] * Prothrombin time with INR (08/14/2019 4:15 PM CDT) Only the most recent of 2 results within the time period is included. [facility] Prothrombin 16.0 (H) 11.5 - 14.5 sec [facility] INR 1.3 [place] Comment: HINDU The International Normalized HOSPITAL Ratio (INR) is a therapeutic monitoring tool for patients who are stable on oral anticoagulant therapy. An INR of 2.0-3.0 is suggested for deep vein thrombosis/pulmonary embolism. Specimen Blood Performing Organization Address City/State/ZIP Code P pascale Number [facility] [place] [address] PATHOLOGY AND [facility] [address] * C-reactive protein (08/14/2019 4:15 PM CDT) [facility] CRP 5.40 (H) 0.00 - 0.50 mg/dL [facility] Specimen Blood Performing Organization Address City/State/ZIP Code P pascale Number [facility] [place] [address] PATHOLOGY AND [facility]OMIC MEDICINE [address] * Comprehensive metabolic panel (08/14/2019 4:15 PM CDT) Only the most recent of 2 results within the time period is included. Sodium 138 135 - 148 mEq/L [facility] Potassium 4.2 3.5 - 5.0 mEq/L [facility] Chloride 102 98 - 112 mEq/L [facility] CO2 24 24 - 31 mEq/L [facility] Anion gap 12@ANIO 7 - 15 mEq/L [facility] BUN 35 (H) 6 - 20 mg/dL [facility] Creatinine 5.44 (H) 0.70 - 1.20 mg/dL [facility] Glucose 233 (H) 65 - 99 mg/dL [facility] Calcium 8.1 (L) 8.3 - 10.2 mg/dL [facility] Protein 7.3 6.3 - 8.3 g/dL [place] Comment: [facility] 4.6-7.0 g/dL 1 week 4.4-7.6 g/dL 7 months-1year 5.1-7.3 g/dL 1-2 years 5.6-7.5 g/dL >3 years 6.0-8.0 g/dL 18-150 6.3-8.3 g/dL Albumin 1.9 (L) 3.5 - 5.0 g/dL [facility] A/G ratio 0.4 (L) 0.7 - 3.8 [facility] Alkaline 216 (H) 40 - 129 U/L [place] phosphatase [facility] AST 14 10 - 50 U/L [facility] ALT 13 5 - 50 U/L [facility] Total bilirubin <0.2 0.0 - 1.2 mg/dL [facility] Specimen Blood Performing Organization Address City/State/ZIP Code P pascale Number [facility] DEPARTMENT OF [address] [place] [address] PATHOLOGY AND GENOMIC MEDICINE [address] * XR Knee 4+ Vw Right [...] patellar component appear intact. No loosening noted. [facility] Procedure Note Hm Interface, Radiology Results Incoming - 08/14/2019 2:47 [...] c omponent appear intact. No loosening noted. [facility] Performing Organization Address City/[facility]/ZIP Code P pascale Number [facility] [address] [place] [address] * Cardiolipin antibodies (08/01/2019 12:17 PM CDT) Only the most recent of 2 results within the time period is included. Cardiolipin IgG 5 0 - 14 GPL [place] Comment: [facility]U Negative <15 GPL HOSPITAL Indeterminate 15-20 GPL Positive >20 GPL Cardiolipin IgM 7 0 - 12 MPL [place] Comment: [facility]U Negative <13 MPL HOSPITAL Indeterminate 13-20 MPL Positive >20 MPL Specimen Blood Performing Organization Address [facility] P pascale Number [facility] DEPARTMENT OF [address] [place] [address] PATHOLOGY AND GENOMIC MEDICINE [place] HINDU [address] [place] [address] HOSPITAL * XR Chest 2 Vw (05/03/2019 [...] demonstr ate no definite abnormality. Negative examination. [id number] Procedure Note Hm Interface, Radiology Results Incoming [...] structures demonstrate no definite abnormality. Negative examination. [id number] Performing Organization Address City/State/ZIP Code P pascale Number [facility] [address] [place] [address] * CT Abdomen Pelvis Wo Contrast (05/03/2019 [...] lymph nodes, nonspecific though may be reactive. [id number] Procedure Note Hm Interface, Radiology Results Incoming [...] lymph nodes, nonspecific though may be reactive. [id number] Performing Organization Address [facility] [place] [address] * Low resolution full typing by SSO (05/03/2019 8:30 AM CDT) Interpretation Note: HLA typing was performed [place] N by PCR-SSO DNA based [facility]U procedures. HOSPITAL Note: The serological phenotype is an interpretation based on molecular typing data. [facility] Low resolution See link below for PDF Lab [place] full typing by Report [facility] SSO HOSPITAL Specimen Blood Performing Organization Address [facility] P pascale Number [facility] [place] [address] PATHOLOGY AND GENOMIC MEDICINE [address] * C1Q class 1 & 2 antibody (05/03/2019 8:30 AM CDT) [facility] C1Q class 1 & 2 See link below for PDF Lab [place] antibody Report [facility] Specimen Blood Performing Organization Address [facility] P pascale Number [facility] [place] [address] PATHOLOGY AND GENOMIC MEDICINE [facility] * HSV 1 & 2 glycoprotein G Ab, IgG (05/03/2019 8:30 AM CDT) HSV 1 NegativeComment: Negative: No Negative [place] glycoprotein G IgG antibodies to HSV1 [facility] Ab, IgG detected. [facility] HSV 2 NegativeComment: Negative: No Negative [place] glycoprotein G IgG antibodies to HSV2 [facility] Ab, IgG detected. HOSPITAL Specimen Serum Performing Organization Address [facility] P pascale Number [facility] DEPARTMENT OF [address] [place] [address] PATHOLOGY AND GENOMIC MEDICINE [address] * Helder-Petit virus antibody test (05/03/2019 8:30 AM CDT) Pathologist [facility] EBV Ab to viral Positive (A) Negative [place] capsid Ag, IgG [facility] EBV Ab to viral Negative Negative [place] capsid Ag, IgM [facility] EBV Ab to Positive (A) Negative [place] nuclear Ag, IgG [facility] EBV Ab to early Negative Negative [place] (D) Ag, IgG [facility] Helder-Petit SEE COMMENTComment: Infection [place] virus antibody Status: Results may suggest [facility]U interpretation past EBV infection. HOSPITAL Specimen Serum Performing Organization Address City/State/ZIP Code P pascale Number [facility] DEPARTMENT OF [address] [place] [address] PATHOLOGY AND [facility] [address] * TB T-SPOT (05/03/2019 8:30 AM CDT) [facility] TB T-SPOT SEE NOTE TMHRI - GRAVISS [...] FOR USE WITH T=SPOT.TB TEST. Performed by: [facility] Molecular Tuberculosis Laboratory [facility] ([id number]) [place], [place] [address] Specimen Blood Performing Organization Address City/State/ZIP Code P pascale Number [facility] DEPARTMENT OF [address] [place] [address] PATHOLOGY AND GENOMIC MEDICINE [facility] REF LAB * Single antigen beads (05/03/2019 8:30 AM CDT) [facility] interpretation information: HINDU DP1=DPB1*01:01/DPA1*02:01 [facility] DP5=DPB1*05:01/DPA1*02:02 DQ9=DQB1*03:03/DQA1*02:01 HP17=HXN6*01:03 MT03=WZV6*01:01 DR51 is a self-antigen [facility] serum ID [id number] [facility] SAB serum 05/03/2019 08:30 AM [place] collection D&T [facility] SAB class I Negative [facility] SAB cPRA class 0 [facility] SAB class II DP1,DR10,DP5,DR53,DR51,DQ9 [place] antibody [facility] SAB cPRA class 74 [facility] Single antigen See link below for PDF Lab [facility] Specimen Blood Performing Organization Address City/State/ZIP Code P pascale Number [facility] DEPARTMENT OF [address] [place] [address] PATHOLOGY AND GENOMIC MEDICINE [facility] [address] [place] [address] [facility] * Miscellaneous referral test (05/03/2019 8:30 AM CDT) Only the most recent of 2 results within the time period is included. Misc test name PTNT LEMA SHOWN ABOVE Misc test SEE NOTE SHOWN ABOVE result Comment: Report Status: FINAL Prothrombin [id number] Mutation, B PTNT Interpretation This individual DOES NOT have the Prothrombin F51137I mutation. Although the Prothrombin D78235I mutation is absent, the individual may have other genetic and environmental risk factors for thrombosis. Consider genetic consultation and counseling of potentially affected family members regarding laboratory testing. ADDITIONAL INFORMATION This test is a direct mutation analysis using PCR amplification, signal generation and release by cleavage of sequence specific alleles ([employer], [employer], [place], [place]). .............................. .............................. Prothrombin [id number] Mutation, B Negative Reference Value: Negative .............................. .............................. PTNT Reviewed By DARRYL Oneil - - - - - - - - - - - - - - - - - - - - - - - - - - - - - - Laboratory Notes: This test has been modified from the mine equipment design engineer's instructions. Its performance characteristics were determined by [facility] in a manner consistent with CLIA requirements. This test has not been cleared or approved by the U.S. Food and Drug Administration. + + : PERFORMING SITE LEGEND : + + : : [facility] : : : [address] [place] [address] : + + Specimen Narrative Performed At Prothrombin [id number] Mutation [facility] DEPARTMENT OF [facility] Test ID: PTNT PATHOLOGY AND Source: Whole Blood GENOMIC MEDICINE Performing Organization Address City/State/ZIP Code P pascale Number [facility] DEPARTMENT OF [address] [place] [address] PATHOLOGY AND GENOMIC MEDICINE SHOWN ABOVE * HSV type 1/2 combined Ab, IgM (05/03/2019 8:30 AM CDT) [facility] HSV 1/2 0.71 <=0.89 IV [facility] REF [...] more than 12 months post-infection. Performed by [employer], [address] [place] [id number] [email or web address], Trung Boyer MD, Lab. Director Specimen Serum Performing Organization Address [facility] P pascale Number [facility] [address] [place] [address] [facility] [address] [place] [address] * Homocystine, plasma (05/03/2019 8:30 AM CDT) [facility] Homocysteine 17.5 (H) 0.0 - 15.0 umol/L [place] Comment: [facility]INDU The risk for coronary vascular HOSPITAL disease increases progressively with homocysteine concentration. A 3.4 times greater risk is associated with a homocysteine concentration of greater than 15.8 umol/L as compared to a concentration below 14.1 umol/L. Specimen Plasma specimen Performing Organization Address [facility] P pascale Number [facility] DEPARTMENT OF [address] [place] [address] PATHOLOGY AND GENOMIC MEDICINE [address] * HLA autologous crossmatch (05/03/2019 8:30 AM CDT) [facility] AXL source Peripheral Blood [facility] current [id number] [place] serum ID [facility] serum 05/03/2019 08:30 AM [place] collection D&T [facility] AXL flow XM T Negative [place] cell result, [facility] AXL flow XM B Negative [place] cell result, [facility] HLA autologous See link below for PDF Lab [place] crossmatch Report [facility] Specimen Blood Performing Organization Address City/[facility]/ZIP Code P pascale Number [facility] [place] [address] PATHOLOGY AND [facility] [address] * Cytomegalovirus Ab, IgM (05/03/2019 8:30 AM CDT) Pathologist [facility] Cytomegalovirus Negative Negative [place] Ab, IgM [facility] Specimen Serum Performing Organization Address City/[facility] P pascale Number [facility] [place] [address] * ABORh - transplant (05/03/2019 8:30 AM CDT) Pathologist [facility] ABO grouping O [facility] Rh type POS [facility] Specimen Blood Performing Organization Address [facility] P pascale Number [facility] [place] [address] PATHOLOG[facility] [address] * Functional protein S (05/03/2019 8:30 AM CDT) Pathologist [facility] 91 74 - 160 % [place] protein S Comment: HINDU Functional Protein S HOSPITAL performed. If result is decreased Total and Free Protein S Antigen will be performed. Specimen Blood Performing Organization Address City/[facility]/ZIP Code P pascale Number [facility] [place] [address] PATH[facility] [address] * Functional protein C (05/03/2019 8:30 AM CDT) Pathologist [facility] Functional 56 (L) 70 - 165 % [place] protein C Comment: [facility]U Low Protein C Activity and HOSPITAL prolonged Prothrombin time consistent with vitamin K deficiency, warfarin therapy or liver disease. Recommend repeating Protein C when PT is normal. Reviewed by Huan Keita MD, PhD. Specimen Blood Performing Organization Address City/[facility]/ZIP Code P pascale Number [facility] DEPARTMENT OF [address] [place] [address] PATHOLOGY AND GENOMIC MEDICINE [address] * Lupus anticoagulant panel (05/03/2019 8:30 AM CDT) Pathologist [facility] Prothrombin 15.9 (H) 11.5 - 14.5 sec [place] time [facility] INR 1.3 [place] Comment: H[facility]U The International Normalized HOSPITAL Ratio (INR) is a therapeutic monitoring tool for patients who are stable on oral anticoagulant therapy. An INR of 2.0-3.0 is suggested for deep vein thrombosis/pulmonary embolism. PTT 34.0 23.0 - 36.0 sec [place] Comment: [facility] PTT therapeutic range for HOSPITAL unfractionated heparin is 61.0-112.0 seconds which corresponds to Anti-Xa 0.3-0.7 U/ml. PTT lupus 36.1 27.0 - 38.0 sec [place] anticoagulant Comment: HINDU Lupus anticoagulant (LA) panel HOSPITAL consists of [...] diagnosis. DRVVT 45.4 29.0 - 46.0 sec [place] Comment: HINDU This test has been modified HOSPITAL from the manufacturers instructions. The performance characteristics were determined by [facility] in a manner consistent with CLIA requirements. This test has not been cleared or approved by the U.S. Food and Drug Administration. Specimen Blood Performing Organization Address City/State/ZIP Code P pascale Number [facility] DEPARTMENT OF [address] [place] [address] PATHOLOGY [facility] [address] * Cytomegalovirus Ab, IgG (05/03/2019 8:30 AM CDT) Pathologist [facility] Cytomegalovirus Positive (A) Negative [place] Ab, IgG Comment: HINDU Positive; IgG antibody to CMV HOSPITAL detected which may indicate exposure to CMV infection. Specimen Serum Performing Organization Address City/[facility]/ZIP [facility] P pascale Number [facility] DEPARTMENT OF [address] [place] [address] PATHOLOGY [facility] [address] * Fibrinogen (05/03/2019 8:30 AM CDT) Fibrinogen 627 (H) 200 - 450 mg/dL [facility] Specimen Blood Performing Organization Address City/[facility] P pascale Number [facility] [place] [address] PATHOLOGY [facility] [address] * Antithrombin III level (05/03/2019 8:30 AM CDT) Antithrombin 81 80 - 130 % [facility] Specimen Blood Performing Organization Address City/[facility] P pascale Number [facility] [place] [address] PATHOLOG[facility] [address] * Triglycerides (05/03/2019 8:30 AM CDT) Triglycerides 103 <150 mg/dL [facility] Specimen Plasma specimen Performing Organization Address City/[facility] P pascale Number [facility] [place] [address] PATHOLOG[facility] [address] * Phosphorus level (05/03/2019 8:30 AM CDT) Phosphorus 4.6 (H) 2.4 - 4.5 mg/dL [facility] Specimen Plasma specimen Performing Organization Address City/[facility] P pascale Number [facility] [place] [address] PATH[facility] [address] * Parathyroid hormone (05/03/2019 8:30 AM CDT) PTH 507 (H) 15 - 65 pg/mL [facility] Specimen Blood Performing Organization Address City/[facility]/ZIP [facility] P pascale Number [facility] [place] [address] PATHOLOG[facility] [address] * LDH (05/03/2019 8:30 AM CDT) LDH 235 (H) 87 - 225 U/L [facility] Specimen Plasma specimen Performing Organization Address City/[facility] Code P pascale Number [facility] [place] [address] PATHOLOGY AND GENOMIC MEDICINE [address] * Glucose level (05/03/2019 8:30 AM CDT) Glucose 146 (H) 65 - 99 mg/dL [facility] Specimen Plasma specimen Performing Organization Address City/[facility] P pascale Number [facility] [place] [address] PATHOLOGY AND GENOMIC MEDICINE [address] * Creatinine level (05/03/2019 8:30 AM CDT) Creatinine 4.40 (H) 0.70 - 1.20 mg/dL [facility] Specimen Plasma specimen Performing Organization Address City/[facility] P pascale Number [facility] DEPARTMENT OF [address] [place] [address] PATHOLOGY AND GENOMIC MEDICINE [address] * Cholesterol (05/03/2019 8:30 AM CDT) Cholesterol 86 <200 mg/dL [facility] Specimen Plasma specimen Performing Organization Address City/[facility] P pascale Number [facility] DEPARTMENT OF [address] [place] [address] PATHOLOGY AND GENOMIC MEDICINE [address] * Amylase level (05/03/2019 8:30 AM CDT) Amylase 46 28 - 100 U/L [facility] Specimen Plasma specimen Performing Organization Address City/[facility]/ZIP [facility] P pascale Number [facility] DEPARTMENT OF [address] [place] [address] PATHOLOGY AND GENOMIC MEDICINE [address] * Nicotine and cotinine, serum (04/06/2019 8:00 AM MANAGING SUPERVISOR) Nicotine <2.0 0.0 - 1.9 ng/mL [facility] Cotinine <2.0 0.0 - 1.9 ng/mL [place] Comment: HINDU This test was developed and HOSPITAL its performance characteristics determined by the Department of Pathology and Genomic Medicine, [facility]. Serum nicotine and metabolite cotinine are tested by HPLC tandem mass spectrometry. It has not been cleared or approved by FDA. The laboratory is regulated under CLIA as qualified to perform high-complexity testing. This test is used for clinical purposes. It should not be regarded as investigational or for research. Specimen Blood Performing Organization Address [facility]/[place] [address] * Syphilis total antibody (04/06/2019 8:00 AM MANAGING SUPERVISOR) Syphilis total Reactive (A) Non-reactive [place] antibody Comment: HINDU Treponemal antibodies are HOSPITAL screened reactive. Non-treponemal antibody test, RPR will be followed. Specimen Blood Performing Organization Address [facility] [place] [address] * HIV Ag/Ab combination (04/06/2019 8:00 AM MANAGING SUPERVISOR) HIV Ag/Ab Non-reactive Non-reactive [facility] Specimen Blood Performing Organization Address [facility] [place] [address] * IA-2 antibody (04/06/2019 8:00 AM MANAGING SUPERVISOR) IA-2 antibody see note [facility] Comment: Islet Antigen-2 (IA-2) Autoantibody, Serum [facility] test code [id number] IA-2, Autoantibody <5.4 U/mL (Ref Interval: 0.0-7.4) 999 INTERPRETIVE INFORMATION: Islet Antigen-2 (IA-2) Autoantibody, Serum A value greater than or equal to 7.5 Units/mL is considered positive for IA-2 autoantibodies. This assay is intended for the quantitative determination of autoantibodies to Islet Antigen-2 (IA-2) in human serum. Results should be interpreted within the context of clinical symptoms. Specimen Serum Performing Organization Address [facility] P pascale Number [facility] [address] [place] [address] [facility] [address] [place] [id number] * Hepatitis B surface Ab, quantitative (04/06/2019 8:00 AM MANAGING SUPERVISOR) Pathologist [facility] Hepatitis B <3.10 IU/L [facility] surface Ab Comment: The anti-HBs [...] refer to MMWR February 11, 2013/Vol. 62(No. 10);1-19. Reference Interval: anti-HBs 9.99 IU/L or less ....... Negative 10.00 IU/L or greater .... Positive Results greater than 1,000.00 IU/L are reported as greater than 1,000.00 IU/L. This assay should not be used for blood donor screening, associated re-entry protocols, or for screening Human Cell, Tissues and Cellular and Tissue-Based Products (HCT/P). Performed by [facility], [address] [place] [id number] [email or web address], Trung Boyer MD, Lab. Director Specimen Serum Performing Organization Address [facility] P pascale Number [facility] [address] [place] [address] [facility] [address] [place] [phone] * Hepatitis C antibody (04/06/2019 8:00 AM MANAGING SUPERVISOR) Hepatitis C Ab Non-reactive Non-reactive [facility] Specimen Blood Performing Organization Address [facility] P pascale Number [address] [address] PATHOLOGY AND GENOMIC MEDICINE [address] * Hepatitis A antibody IgM (04/06/2019 8:00 AM MANAGING SUPERVISOR) Hepatitis A IgM Non-reactive Non-reactive [facility] Specimen Performing Organization Address City/[facility] P pascale Number [facility] [place] [address] PATHOLOGY AND [facility] [address] * Hepatitis A antibody total (04/06/2019 8:00 AM MANAGING SUPERVISOR) Hepatitis A Reactive (A) Non-reactive [facility] total Ab Comment: HINDU Hepatitis A Total Antibody HOSPITAL reactive. Hepatitis A IgM antibody will be performed and reported separately when completed. Specimen Blood Performing Organization Address [facility] [place] [address] PATHOLOGY AND [facility] [address] * Drug yuen 9, ser/lilian, scrn w/rflx to conf (04/06/2019 8:00 AM MANAGING SUPERVISOR) Amphetamines, Negative Cutoff 30 ng/mL [facility] [...] use. Test developed and characteristics determined by [facility]. See Compliance Statement B: [employer]/ Performed by [facility], [address] [place] [address] [email or web address], Trung Boyer MD, Lab. Director Specimen Serum Performing Organization Address [facility] P pascale Number [id number] RE[facility] LAB [address] [place] [address] * Glutamic acid decarboxylase Ab (04/06/2019 8:00 AM MANAGING SUPERVISOR) [facility] Glutamic acid <5.0 0.0 - 5.0 IU/mL [facility] [place] B decarb Ab Comment: INTERPRETIVE INFORMATION: Glutamic Acid Decarboxylase Antibody A value greater than 5.0 IU/mL is considered positive for Glutamic Acid Decarboxylase Antibody (HERMELINDA Ab). This assay is intended for the semi-quantitative determination of the HERMELINDA Ab in human serum. Results should be interpreted within the context of clinical symptoms. Performed by [facility], [address] [place] [address] [email or web address], Trung Boyer MD, Lab. Director Specimen Serum Performing Organization Address [facility] P pascale Number [place] [phone] [facility] [address] [place] [address] * Hepatitis B core antibody total (04/06/2019 8:00 AM MANAGING SUPERVISOR) Hepatitis B Non-reactive Non-reactive [facility] core total Ab [facility] Specimen Blood Performing Organization Address City/State/ZIP Code P pascale Number [facility] [place] [address] PATHOLOGY AND [facility] [address] * Treponema pallidum Ab (04/06/2019 8:00 AM MANAGING SUPERVISOR) Pathologist [facility] Syphilis Non-reactiveComment: Non-reactive [facility] treponemal Ab Treponemal antibody is not [facility] confirmed. HOSPITAL Specimen Performing Organization Address City/State/ZIP Code P pascale Number [facility] DEPART[facility] OF [address] [place] [address] PATH[address] * ABO and Rh (04/06/2019 8:00 AM MANAGING SUPERVISOR) Pathologist [facility] ABO grouping O [facility] Rh type POS [facility] Specimen Blood Performing Organization Address City/[facility]/ZIP Code P pascale Number [facility] OF [address] [place] [address] PATHOLOGY AND [facility] [address] * C-peptide (04/06/2019 8:00 AM MANAGING SUPERVISOR) [facility] C-peptide 2.2 1.1 - 4.4 ng/mL [facility] Specimen Plasma specimen Performing Organization Address City/[facility]/ZIP Code P pascale Number [facility] [place] [address] PATHOLOGY AND [facility] [address] * Islet cell Ab, IgG (04/06/2019 8:00 AM MANAGING SUPERVISOR) Pathologist [facility] Islet cell Ab <1:4 <1:4 [facility] Comment: INTERPRETIVE INFORMATION: Islet Cell Ab, IgG Islet cell antibodies (ICAs) are associated with type 1 diabetes (TID), an autoimmune endocrine disorder. ICAs may be present years before the onset of clinical symptoms. To calculate Juvenile Diabetes Foundation (JDF) units: multiply the titer x 5 (1:8 8 x 5 = 40 JDF Units). Test developed and characteristics determined by [facility] [facility]. See Compliance Statement A: [employer]/CS Performed by [facility], [address] [place] [address] [email or web address], Trung Boyer MD, Lab. Director Specimen Serum Performing Organization Address City/State/ZIP Code P pascale Number [facility] [address] [place] [address] [facility] [address] [place] [address] * RPR (04/06/2019 8:00 AM MANAGING SUPERVISOR) RPR Non-reactive Non-reactive [facility] Comment: [facility] Results suggest no serological HOSPITAL evidence of active syphilis infection. Possible syphilis (early or latent) or previously treated syphilis cannot be ruled out. Confirmatory treponemal test, TP-PA will be performed. 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
--- OUTSIDE RECORDS SUMMARY | 2020-01-16 16:29 | XMS REPORT | Continuity of Care Document ---
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 Name Role Phone MD ABHIJIT YODER MD PCP Omayra TRAMMELL Attphys Unavailable John FOSS, Maricarmen Solis Attphys Unavailable ABHIJIT YODER Attphys Unavailable Aliza RN, Arcelia Attphys Unavailable Dominique [facility], Srini Mckeon Attphys Umu Finney MA Attphys Unavailable Ty FOSS, Bisi Attphys Unavailable Gaurav Vila Attphys Unavailable Bisi Silva LCSW Attphys Unavailable Jason OLSON, Sonido Osorio Attphys Bill OLSON, Meghna Attphys Kirit OLSON, Srini Reeder Attphys Hola Pressley MD Attphys YANETH WEAVER Attphys Unavailable Yuval MARSH Attphys Unavailable Lorie Driver Attphys Unavailable CASTRO JALLOH Attphys Unavailable DELLA NG M.D. Attphys Unavailable ROSEYSkye MCKEON Attphys Unavailable MARK, S AMBICA Attphys Unavailable MANEEVESE, V ADRIEL Attphys Unavailable SWEET, A LAIRD Attphys Unavailable YODER, ABHIJIT Admphys Unavailable O'MANNING, VARINDER Admphys Unavailable HAMPEL, CASTRO Admphys Unavailable Payers Payer Name Policy Type Policy Number Effective Date Expiration Date S dylan BCBSBCBS OUT OF [id number]/2018-[id number] [id number] 2018 00:00:00 Alejandro Arias [employer] [place] P[place] [id number] 2018 00:00:00 [facility] [employer] Ppo [id number] [facility] Problems Condition Name Condition [...] renal failure Problem Active 2015-08-09 00:00 :00 [facility] Dehydration Dehydration Problem Active 2015-08-09 00:00:00 [facility] Diarrhea Diarrhea Problem Active 2015-08-09 00:00:00 [facility] GI bleed GI bleed Problem Active 2015-08-09 00:00:00 [facility] Hyperglycemia Hyperglycemia Problem Active 2015-08-09 00:00:00 [facility] Sepsis Sepsis Problem Active 2015-04-15 00:00:00 [facility] Renal insufficiency Renal insufficiency Problem Active 2015-04-15 00:00 :00 [facility] Bacteremia Bacteremia Problem Active 2015-03-30 00:00:00 [facility] Prostatitis Prostatitis Problem Active 2015-03-30 00:00:00 [facility] Urinary tract infection UTI (urinary tract infection) Problem Active 2015-03-30 00:00:00 [facility] Pyelonephritis Pyelonephritis Problem Active 2015-02-10 00:00:00 [facility] History of left foot drop History of left foot drop Problem Active [facility] Arthralgia of right ankle Arthralgia of right ankle Problem Active [facility] Equinus contracture of right ankle Equinus contracture of right ankle Problem Active [facility] Fracture of right tibial plateau, closed , with routine healing, subsequent encounter Fracture of right tibial plateau, closed , with routine healing, subsequent encounter Problem Active [facility] Acute renal insufficiency Acute renal insufficiency Problem Active [facility] Bladder wall thickening Bladder wall thickening Problem Active [facility] Fever Fever Problem Active [facility] Hydroureteronephrosis Hydroureteronephrosis Problem Active [facility] Hypomagnesemia Hypomagnesemia Problem Active [facility] Indwelling Barcenas catheter present Indwelling catheter presen t on admission Problem Active [facility] Obstructive uropathy Obstructive uropathy Problem Active [facility] Displacement of ureteral stent Ureteral stent displacement Problem Activ e [facility] Vomiting Vomiting Problem Active [facility] Abdominal pain Abdominal pain Problem Active [facility] Constipation Constipation Problem Active [facility] Edema of extremities Edema extremities Problem Active [facility] End-stage renal disease on peritoneal dialysis Problem Active [facility] Hypocalcemia Problem Active [facility] End stage renal failure on dialysis Problem Active [facility] Hyperkalemia Problem Active [facility] Allergies, Adverse Reactions, Alerts Allergy Name Allergy Type Status Severity Reaction(s) Onset Date Inacti ve Date Treating Clinician Comments Source Iodinated Contrast Media Allergy to substance Active 11-05-10 00:00:00 [facility] Propensity to adverse reactions to drug Active 2016-03-17 00:00:00 CT contrast. IV dye. Excessive sneezing. Alejandro Arias CT CONTRAST DA Active MO 2015-10-12 00:00:00 [facility] PO CONTRAST Allergy to substance Active Mild 2007-07-06 00:00:00 [facility] Family History Family Member Diagnosis Comments Start Date Stop Date Source Maternal grandmother Hypertension Timi Arias Maternal grandmother Kidney disease Alejandro Arias Natural mother Diabetes Alejandro Ok [facility]odist Social History Social Habit Start Date Stop Date Quantity Comments Source Sex Assigned At Trever Arias Tobacco use and exposure 2019-08-09 00:00:00 2019-08-09 00:00:00 Christiee r used Alejandro Arias Alcohol intake 2019-08-09 [...] injection 2 13:14:56 2019-08-19 00:00:00 No 5U Q.[id number] In ject 5 Units under the skin 3 (three) times a day before meals. Ana Cristina Arias amoxicillin (AMOXIL) 500 MG capsule 2019-08-19 13:14:5 6 2019-08-19 00:00:00 No 500mg Q.[id number] Take 500 mg by mo [facility] 3 (three) times a day. Alejandro Arias calcium carbonate (TUMS) 200 mg calcium (500 mg) chewable ta blet 2019-08-19 13:14:52 Yes 1{tbl} Q.[id number] 3D Chew 1 tablet 3 (three) times daily after meals. Alejandro Arias gabapentin (NEURONTIN) 300 mg capsule 2019-08-19 13:14:52 Yes 300mg Q.[id number] Take 300 mg by mouth 3 (three) times a day. Alejandro Arias sodium bicarbonate 650 mg tablet 2019-08-19 13:14:52 Yes 1300mg Q.[id number] Take 1,300 mg by mouth 3 (three) times a day. Alejandro Arias NIFEdipine XL (PROCARDIA XL) 30 MG 24 hr tablet 2019-08-19 13:14 :52 Yes 30mg Q.5D Take 30 mg by mouth 2 (two) times a day. Alejandro Arias magnesium oxide (MAG-OX) 400 mg (241.3 mg magnesium) tablet 2019-08-19 13:14:52 Yes 800mg Q.[id number] 3D Take 800 mg by mouth 3 (three) times a day. Alejandro Arias ciprofloxacin (CIPRO) 500 MG tablet 2019-08-19 00:00:0 0 2019-09-18 23:59:00 No 500mg QD Take 1 tablet (500 mg total) by mouth da darci for 30 days. Alejandro Arias insulin lispro (HumaLOG) 100 unit/mL injection 2 00:00:00 2019-09-17 23:59:00 No 9U Q.[id number] In ject 9 Units under the skin 3 (three) times a day before meals for 30 days. Alejandro Arias doxycycline (VIBRAMYCIN) 100 MG capsule 00:00:00 2019-09-17 23:59:00 No 100mg Q.5D Take 1 capsule (100 mg total) by mouth 2 (two) times a day for 30 days. Alejandro Arias ergocalciferol (VITAMIN D2) 50,000 unit capsule 2019-08-15 11:27:08 2019-08-15 00:00:00 No 11361U Q7D Take 50,000 Units by mouth once a week. Alejandro Arias cholecalciferol, vitamin D3, (VITAMIN D3) 2,000 unit capsule capsule 2019-08-15 11:27:00 2019-08-15 00:00:00 No 2000U QD Take 2,000 Units by mouth daily. Alejandro Arias isoniazid (NYDRAZID) 300 MG tablet 2019-08-01 00:00:00 202 23:59:00 No 900mg Q7D Take 3 tablets (900 mg total) by kyel th once a week for 12 doses. [...] mouth 2 (two) cm es a day. Alejanrdo Arias AMLODIPINE BESYLATE (AMLODIPINE ORAL) 2019-02-21 15:10 [...] TAKE 1 CA PSULE 3 TIMES DAILY. [facility] Furosemide Furosemide 2018-06-27 14:06:00 2018-10-17 00:00:00 No 40 Daily [facility] Nifedipine (Nifedipine Er) 30 Mg TAB.ER.24 Nifedipine (Nifedipine Er) 30 Mg TAB.ER.2018-06-27 14:06:00 2018-10-17 00:00:00 No 60 Daily [facility] Calcitriol Calcitriol Yes .5 Twice A Day [facility] Calcium Carbonate/Vitamin D3 (Os-Tricia 500+D Tablet) 1 E ach TABLET Calcium Carbonate/Vitamin D3 (Os-Tricia 500+D Tablet) 1 Each TABLET Yes 1 Twice A Day [facility] Famotidine Famotidine Yes 20 Twice A Day [facility] Gabapentin Gabapentin Yes 300 Three Times A Day [facility] Hydrocodone Bit/Acetaminophen (Fostoria 7.5-325 Tablet) 1 Each TABLET Hydrocodone Bit/Acetaminophen (Fostoria 7.5-325 Tablet) 1 Each TABLET Yes 2 Every 4 Hours as needed for Severe Pain (7-10) C [facility] Insulin Aspart (Novolog) 100 Unit/1 Ml CARTRIDGE Insul in Aspart (Novolog) 100 Unit/1 Ml CARTRIDGE Yes 5 Three Times Daily With Meals [facility] Insulin Glargine (Lantus 3ML Pen) 100 Units/1 Ml INJ I nsulin Glargine (Lantus 3ML Pen) 100 Units/1 Ml INJ Yes Three Time s Daily With Meals [facility] Magnesium Oxide (Mag-Oxide) 400 Mg TABLET Magnesium Ox jaziel (Mag-Oxide) 400 Mg TABLET Yes 400 Three Times A Day C [facility] Metoclopramide Hcl (Reglan) 5 Mg TABLET Metoclopramide Hcl ( Reglan) 5 Mg TABLET Yes 10 Before Meals as needed for Naus ea And Vomiting [facility] Nifedipine (Nifedipine Er) 30 Mg TABLET.ER Nifedipine (Nifedipine Er) 30 Mg TABLET.ER Yes 30 Twice A Day [facility] Ondansetron Hcl (Zofran*) 4 Mg TABLET Ondansetron Hcl (Zofran*) 4 M g TABLET Yes 4 As Needed as needed for Nausea And Vomit ing [facility] Ondansetron Hcl (Zofran*) 4 Mg TABLET Ondansetron Hcl (Zofran*) 4 M g TABLET Yes 4 as needed for Q4h Prn [facility] Sodium Bicarbonate Sodium Bicarbonate Yes 1300 Th ree Times A Day [facility] Sodium Zirconium Cyclosilicate (Lokelma) 5 Gm POWD.PAC K Sodium Zirconium Cyclosilicate (Lokelma) 5 Gm POWD.PACK Yes Daily [facility] Famotidine (Pepcid) 20 Mg TABLET Famotidine (Pepcid) 20 Mg TABLE T 2019-12-27 00:00:00 No 20 Twice A Day as needed for Gi Up set [facility] Hydrocodone Bit/Acetaminophen (Fostoria 7.5-325 Tablet) 1 Each TABLET Hydrocodone Bit/Acetaminophen (Fostoria 7.5-325 Tablet) 1 Each TABLET 3 00:00:00 No 2 Every 6 Hours as needed for [facility] Amoxicillin Amoxicillin 2019-12-20 00:00:00 No 500 Three Times A Day [facility] Ciprofloxacin Hcl (Cipro) 500 Mg TABLET Ciprofloxacin Hcl (C ipro) 500 Mg TABLET 2019-12-20 00:00:00 No 250 Every 12 Hours [facility] Fluconazole (Diflucan) 100 Mg TABLET Fluconazole (Diflucan) 100 Mg TABLET 2019-12-20 00:00:00 No 100 Daily [facility] Fluconazole (Diflucan) 100 Mg [...] 00:00:00 No 2 Three Times A Day [facility] Ergocalciferol (Vitamin D2) (Vitamin D2) 2,000 Unit TA BLET Ergocalciferol (Vitamin D2) (Vitamin D2) 2,000 Unit TABLET 2019-05-30 00:00:00 No 84950 Q Week [facility] Lactulose Lactulose 2019-02-11 00:00:00 No 30 Every 6 Hours as needed for Constipation [facility] Metoclopramide Hcl (Reglan) 10 Mg TABLET Metoclopramid e Hcl (Reglan) 10 Mg TABLET 2019-02-11 00:00:00 No 10 Before Meals And At Bedtime [facility] Veltassa Veltassa 2019-02-11 00:00:00 No 1 [facility] Amlodipine Besylate 2018-05-05 00:00:00 No 10 Daily [facility] Metoprolol Tartrate Metoprolol Tartrate 2018-05-05 00:00:00 No 25 Twice A Day [facility] Ciprofloxacin Hcl (Cipro) 500 Mg TABLET Ciprofloxacin Hcl (C ipro) 500 Mg TABLET 2017-08-29 00:00:00 No 500 Daily [facility] Doxycycline Hyclate Doxycycline Hyclate 2017-08-29 00:00:00 No 100 Twice A Day [facility] Fluconazole Fluconazole 2017-08-29 00:00:00 No 200 D aily [facility] Insulin Detemir (Levemir) 100 Unit/1 Ml VIAL Insulin D etemir (Levemir) 100 Unit/1 Ml VIAL 2017-08-29 00:00:00 No 20 Bedtime [facility] Oxybutynin Chloride (Oxybutynin Chloride Er) 5 Mg TAB. ER.24 Oxybutynin Chloride (Oxybutynin Chloride Er) 5 Mg TAB.ER.24 2017-08-29 00:00:00 No 15 Daily [facility] Cephalexin Cephalexin 2016-06-04 00:00:00 No 500 Fou r Times Daily [facility] Hydrocodone Bit/Acetaminophen (Fostoria 5-325 Tablet) 1 E ach TABLET Hydrocodone Bit/Acetaminophen (Fostoria 5-325 Tablet) 1 Each TABLET 2016-06-04 00: 00:00 No 1 Every 6 Hours as needed for Pain [facility] Promethazine Hcl Promethazine Hcl 2016-06-04 00:00:00 No 25 Every 4 Hours [facility] Tramadol Hcl (Ultram) 50 Mg TABLET Tramadol Hcl (Ultram) 50 Mg T ABLET 2016-06-04 00:00:00 No Every 6 Hours as nee ded for Pain [facility] Fluticasone Propionate Fluticasone Propionate 2015-08-08 00:00:00 No 1 Twice A Day [facility] Meropenem (Merrem) 500 Mg INJ Meropenem (Merrem) 500 Mg INJ 2015-08-08 00:00:00 No 500 Every 8 Hours C [facility] Metoclopramide Hcl (Reglan) 10 Mg TABLET Metoclopramid [...] 100 Mg TABLET 2015-04-11 00:00:00 No Daily [facility] Tamsulosin Hcl (Flomax*) 0.4 Mg CAP Tamsulosin [...] 1 Bedtime [facility] Hydrocodone Bit/Acetaminophen (Fostoria 5-325 Tablet) 1 E ach TABLET Hydrocodone Bit/Acetaminophen (Fostoria 5-325 Tablet) 1 Each TABLET 2015-02-22 00: [...] Time Observation Value Comments Source Body Temperature 2019-12-27 11:29:00 98.2 [degF] [facility] Heart Rate 2019-12-27 11:29:00 90 /min [facility] Respiratory rate 2019-12-27 11:29:00 20 /min [facility] BP Systolic 2019-12-27 11:29:00 112 mm[Hg] [facility] BP Diastolic 2019-12-27 11:29:00 84 mm[Hg] [facility] Oxygen saturation by Pulse oximetry 2019-12-27 11:29:00 100 /min [facility] Weight 2019-12-26 08:00:00 232 [lb_av] [facility] BMI (Body Mass Index) 2019-12-26 08:00:00 32.4 kg/m2 [facility] Systolic blood pressure 2019-08-19 10:13:08 137 mm[Hg] Alejandro Arias Diastolic blood pressure 2019-08-19 10:13:08 84 mm[Hg] [facility] Heart rate 2019-08-19 10:13:08 61 /min [facility] Body temperature 2019-08-19 10:13:08 36.5 Ashley Catrina Arias Respiratory rate 2019-08-19 10:13:08 16 /min [facility] Oxygen saturation in Arterial blood by Pulse oximetry 08-18 10:13:08 98 /min [facility] Body height 2019-08-17 12:23:[address] [facility] Body weight 2019-08-14 21:10:00 95.255 kg [facility] BMI 2019-08-14 21:10:00 29.29 kg/m2 [facility] Body Temperature 2019-08-10 11:13:00 98.9 [degF] [facility] [...] Procedure Date / Time Performed Performing Clinician [facility] e CT of abdomen and pelvis without contrast 2019-12-19 00:00:00 [facility] POC GLUCOSE 2019-08-19 12:21:00 Varinder Beth ethodist POC GLUCOSE 2019-08-19 07:18:00 Varinder Beth [facility] URINE CULTURE 2019-08-18 22:47:00 Castro Jalloh odkiana POC GLUCOSE 2019-08-18 21:27:00 Varinder Beth ethodist URINALYSIS SCREEN AND MICROSCOPY, WITH REFLEX TO CULTURE 21:05:00 Castro Jalloh POC GLUCOSE 2019-08-18 19:02:00 Kirit Varinder Sanz ethodist POC GLUCOSE 2019-08-18 17:56:00 Kirit Varinder Sanz ethodist POC GLUCOSE 2019-08-18 15:48:00 Kirit Varinder Sanz ethodist POC GLUCOSE 2019-08-18 15:27:00 Kirit Varinder Sanz ethodist POC GLUCOSE 2019-08-18 12:41:00 Kirit Varinder Sanz ethodist POC GLUCOSE 2019-08-18 08:20:00 OMakayla Varinder Sanz ethodist POC GLUCOSE 2019-08-17 21:13:00 Kirit Varinder Sanz ethodist POC GLUCOSE 2019-08-17 17:44:00 Kirit Varinder Sanz ethodist POC GLUCOSE 2019-08-17 12:23:00 Kirit Varinder Sanz ethodist POC GLUCOSE 2019-08-17 07:51:00 Kirit Varinder Sanz ethodist POC GLUCOSE 2019-08-16 22:54:00 Kirit Varinder Sanz ethodist POC GLUCOSE 2019-08-16 16:53:00 Kirit Varinder SanzHéctor Alejandro Sanz ethodist POC GLUCOSE 2019-08-16 11:38:00 Varinder Beth UmuHéctor Alejandro Sanz ethodist POC GLUCOSE 2019-08-16 07:47:00 Kirit Varinder SanzHéctor Alejandro Sanz ethodist HEPATITIS B SURFACE ANTIGEN 2019-08-16 04:45:00 Christine Jerez COVID-19 QUALITATIVE PCR 2019-08-16 00:30:00 Varinder Beth Srini [facility] POC GLUCOSE 2019-08-15 21:02:00 Kirit Varinder SanzHéctor Alejandro Sanz ethodist POC GLUCOSE 2019-08-15 17:51:00 Kirit Varinder SanzHéctor Alejandro Sanz ethodist POC GLUCOSE 2019-08-15 11:48:00 Kirit Varinder SanzHéctor Alejandro Sanz ethodist POC GLUCOSE 2019-08-15 07:49:00 Varinder Beth UmuHéctor Sanz ethodist HC COMPLETE BLD COUNT W/AUTO DIFF 2019-08-15 04:42:00 Sherice Beth BASIC METABOLIC PANEL 2019-08-15 04:42:00 Varinder Beth HEMOGLOBIN A1C 2019-08-15 04:42:00 Varinder Beth ethodist ESTIMATED GFR 2019-08-15 04:42:00 Varinder Beth ethodist ECG 12-LEAD 2019-08-15 01:09:38 Varinder Bethst POC GLUCOSE 2019-08-14 23:13:00 Varinder Beth CELL COUNT AND DIFFERENTIAL, BODY FLUID 2019-08-14 18:30:00 Phel Adriel mcgraw CRYSTAL ANALYSIS 2019-08-14 18:30:00 JoynerAdriel hodkiana ANAEROBIC CULTURE 2019-08-14 18:28:00 JoynerAdriel valdovinos [facility] URINE CULTURE 2019-08-14 18:28:00 BillMeghna Allen [facility] FUNGUS CULTURE 2019-08-14 18:28:00 BillMeghna Meth odist AFB CULTURE 2019-08-14 18:28:00 BillMeghna Allen Meth odist FUNGUS SMEAR 2019-08-14 18:28:00 BillMeghna Meth odist AFB STAIN 2019-08-14 18:28:00 BillMeghna Meth odist AEROBIC CULTURE 2019-08-14 18:03:00 BillMeghna Meth odist GRAM STAIN 2019-08-14 18:03:00 BillMeghna Meth odist URINALYSIS SCREEN AND MICROSCOPY, WITH REFLEX TO CULTURE 202 17:45:00 JoynerAdriel valdovinos BLOOD CULTURE, AEROBIC & ANAEROBIC 2019-08-14 16:45:00 Varinder Beth BLOOD CULTURE, AEROBIC & ANAEROBIC 2019-08-14 16:15:00 JoynerLuther HC COMPLETE BLD COUNT W/AUTO DIFF 2019-08-14 16:15:00 JoynerPallavi PROTHROMBIN TIME WITH INR 2019-08-14 16:15:00 JoynerAdriel PARTIAL THROMBOPLASTIN TIME (PTT) 2019-08-14 16:15:00 JoynerPallavi tsai SEDIMENTATION RATE 2019-08-14 16:15:00 JoynerAdriel tsai ethodi C-REACTIVE PROTEIN 2019-08-14 16:15:00 JoynerAdriel ethodist COMPREHENSIVE METABOLIC PANEL 2019-08-14 16:15:00 JoynerAdriel ESTIMATED GFR 2019-08-14 16:15:00 Meghna Khan [facility] XR KNEE 4+ VW RIGHT 2019-08-14 14:34:56 Meghna Khan IRRIGATION OF PERITON CAV USING DIALYSATE, PERC APPROACH 2019-07 00:00:00 [facility] IRRIGATION OF PERITON CAV USING DIALYSATE, PERC APPROACH 2019-07 00:00:00 [facility] REMOVAL OF TUNNEL VAD FROM TRUNK SUBCU/FASCIA, PERC AP PROACH 2019-08-08 00:00:00 [facility] REMOVAL OF INFUSION DEV FROM GREAT VESSEL, FINAL CANOE INSPECTOR APPROACH 2 00:00:00 [facility] IRRIGATION OF PERITON CAV USING DIALYSATE, PERC APPROACH 2019-07 00:00:00 [facility] IRRIGATION OF PERITON CAV USING DIALYSATE, PERC APPROACH 2019-07 00:00:00 [facility] IRRIGATION OF PERITON CAV USING DIALYSATE, PERC APPROACH 2019-07 00:00:[address] [facility] [address] of abdomen and pelvis without contrast 2019-08-04 00:00:00 [facility] CHANGE DRAINAGE DEVICE IN BLADDER, EXTERNAL APPROACH 2019-08-04 00:00:00 [facility] CARDIOLIPIN ANTIBODIES 2019-08-01 12:17:00 Yaneth Weaver X-ray of chest, two views 2019-06-16 00:00:00 [facility] RESECTION OF RIGHT KIDNEY, OPEN APPROACH 2019-06-13 00:00:00 [facility] PERFORMANCE OF URINARY FILTRATION, <6 HRS/DAY 2019-06-12 00:00:0 0 [facility] Ultrasound guidance for vascular access 2019-06-02 00:00:00 ABBIE ANGEL FAIZA [facility] INSERT OF TUNNEL VAD INTO CHEST SUBCU/FASCIA, OPEN APPROACH 2019-06-02 00:00:00 [facility] REMOVAL OF TUNNEL VAD FROM TRUNK SUBCU/FASCIA, OPEN AP PROACH 2019-06-02 00:00:00 [facility] INSERTION OF INFUSION DEV INTO SUP [...] views 2019-05-06 00:00:00 JC CATES [facility] XR CHEST 2 VW 2019-05-03 09:35:43 Weaver, Yaneth Cunninghamist CT ABDOMEN PELVIS WO CONTRAST 2019-05-03 09:28:50 Weaver, Claudio Arias CHOLESTEROL 2019-05-03 08:30:00 Weaver, Yaneth mendez [facility] TRIGLYCERIDES 2019-05-03 08:30:00 Weaver, Yaneth mendez [facility] GLUCOSE LEVEL 2019-05-03 08:30:00 Weaver, Yaneth mendez [facility] CREATININE LEVEL 2019-05-03 08:30:00 Weaver, Yaneth Mistry on [facility] PHOSPHORUS LEVEL 2019-05-03 08:30:00 Weaver, Yaneth [facility] LDH 2019-05-03 08:30:00 Weaver, Yaneth Arias CYTOMEGALOVIRUS AB, IGG 2019-05-03 08:30:00 Weaver, Yaneth Arias CYTOMEGALOVIRUS AB, IGM 2019-05-03 08:30:00 Weaver, Yaneth Arias HELDER-VEE VIRUS ANTIBODY TEST 2019-05-03 08:30:00 Weaver, [...] Arias MTHFR MUTATION 2019-05-03 08:30:00 Weaver, Yaneth Arias FIBRINOGEN 2019-05-03 08:30:00 Weaver, Yaneth Arias LUPUS [...] HEPATITIS B SURFACE ANTIGEN 2019-04-06 08:00:00 Weaver, Yaenth Arias HEPATITIS C ANTIBODY 2019-04-06 08:00:00 Weaver, Yaneth Arias HC COMPLETE BLD COUNT W/AUTO DIFF 2019-04-06 08:00:00 Weaver, Leoncio Arias PROTHROMBIN TIME WITH INR 2019-04-06 08:00:00 Yaneth Weaver PARTIAL THROMBOPLASTIN TIME (PTT) 2019-04-06 08:00:00 Leoncio Weaver C-PEPTIDE 2019-04-06 08:00:00 Owen, Yaneth Arias HEMOGLOBIN A1C 2019-04-06 08:00:00 Owen, Yaneth Arias GLUTAMIC ACID DECARBOXYLASE AB 2019-04-06 08:00:[address] IA-2 ANTIBODY 2019-04-06 08:00:00 Weaver, Yaneth Arias NICOTINE AND COTININE, SERUM 2019-04-06 08:00:00 Yaneth Weaver ABO/RH 2019-04-06 08:00:00 Owen, Yaneth Arias DRUG LIZAMA 9, SER/LILIAN, SCRN W/RFLX TO CONF 2019-04-06 08:00:00 Yaneth Weaver ESTIMATED GFR 2019-04-06 08:00:00 Yaneth Weaver HEPATITIS A ANTIBODY IGM 2019-04-06 08:00:00 Yaneth Weaver RPR 2019-04-06 08:00:00 Yaneth Weaver TREPONEMA PALLIDUM AB 2019-04-06 08:00:00 Yaneth Weaver Plan of Care Planned Activity Planned Date Details Comments Source Future Scheduled Test 2019-09-24 00:00:00 INFLUENZA VACCINE [code = INFLUENZA VACCINE] Alejandro Arias Future Scheduled Test 1990 00:00:00 DIABETES: RETINAL EYE EXAM [code = DIABETES: RETINAL EYE EXAM] Alejandro Arias Future Scheduled Test 1990 00:00:00 DIABETIC FOOT EXAM [code = DIABETIC FOOT EXAM] Alejandro Arias Instructions Hyperkalemia [facility] Encounters Start Date/Time End Date/Time Encounter Type Admission Type Attendi [facility] Care Department Encounter ID Source 2019-12-20 00:48:00 2019-12-27 12:31:00 Discharged Inpatient 1 ABHIJIT YODER [facility] [id number] [facility] 2019-12-12 02:12:00 2019-12-16 14:45:00 Discharged Inpatient [address] [facility] [id number] [facility] [place] kes - Patients [facility] 2019-08-14 00:00:00 2019-08-19 00:00:00 Inpatient JAYLIN BETH [facility] [id number] [facility] 2019-08-05 00:31:00 2019-08-10 13:40:00 Discharged Inpatient 1 [facility] [id number] [facility] [place] k[facility] 2019-08-01 00:00:00 2019-08-01 00:00:[address] [facility] [id number] [facility] 2019-08-01 00:00:00 2019-08-01 00:00:00 Outpatient [facility] [id number] [facility] 2019-06-12 12:12:00 2019-06-22 21:38:00 Discharged Inpatient [address] [facility] [address] [facility] [id number] [facility]. [place] - Patients [facility] 2019-06-09 04:55:00 2019-06-09 07:51:00 Departed Emergency Room 1 [facility] [id number] Sosa [facility] 2019-05-30 03:39:00 2019-06-03 18:47:00 Discharged Inpatient [address] [facility] [id number] [facility] [place] - Patients [facility] 2019-05-06 22:01:00 2019-05-21 15:22:00 Discharged Inpatient [address] [facility] [id number] [facility] [place] [facility] 2019-05-03 00:00:00 2019-05-03 00:00:[address] [facility] [id number] [facility] 2019-05-03 00:00:00 2019-05-03 00:00:[address] [facility] [id number] [facility] 2019-05-03 00:00:00 2019-05-03 00:00:[address] [facility] [id number] [facility] 2019-03-20 23:29:00 2019-03-21 04:04:00 Departed Emergency Room [facility] [id number] [facility] 2019-02-15 09:15:00 2019-02-20 13:07:00 Discharged Inpatient 3 [facility] [id number] [facility] 2019-01-14 13:07:00 2019-01-14 13:07:00 Registered Clinic 3 MAU PITTS [facility] [id number] [facility] 2018-12-10 08:30:00 2018-12-10 08:30:00 Appointment; NELSON NG M.D. MELTON, DANIELLE, M.D. U[facility] [id number] [facility] 2018-11-11 07:14:00 2018-11-11 12:00:00 Departed Emergency Room 1 LUZ MARINA CURRIE [facility] [id number] [facility] Sosa [facility] 2018-10-31 03:34:00 2018-11-08 11:44:00 Discharged Inpatient 1 BEV FLORES [facility] [id number] [facility] 2018-10-17 02:37:00 2018-10-29 10:57:00 Discharged Inpatient 1 ABHIJIT YODER [facility] [id number] [facility] 2018-06-20 18:21:00 2018-06-27 15:47:00 Discharged Inpatient [facility] [id number] [facility] 2018-06-11 09:00:00 2018-06-11 09:00:00 Appointment; NG, Benedict WANG DANIELLE, M.D. [facility] UTP [id number] [facility] 2018-05-04 01:45:00 2018-05-07 17:46:00 Discharged Inpatient 1 ADRIEL HADDAD [facility] [id number] [facility] 2018-02-12 12:00:00 2018-02-12 12:00:00 Appointment; NELSON NG M.D. MELTON, DANIELLE, M.D. [facility] UTP [id number] [facility] 2018-01-06 15:15:00 2018-01-06 15:15:00 Appointment; NELSON NG M.D. MELTON, DANIELLE, M.D. [facility] [id number] [facility] 2017-12-11 11:30:00 2017-12-11 11:30:00 Appointment; NELSON NG M.D. MELTON, DANIELLE, M.D. [facility] UTP [id number] [facility] 2017-11-13 11:45:00 2017-11-13 11:45:00 Appointment; NELSON NG M.D. MELTON, DANIELLE, M.D. [facility] UTP [id number] [facility] 2017-08-29 05:19:00 2017-09-01 12:03:00 Discharged Inpatient 1 MARIELLE MARSH [facility] [id number] [facility] 2017-08-07 11:00:00 2017-08-07 11:00:00 Appointment; NELSON NG M.D. MELTON, DANIELLE, M.D. [facility] UTP [id number] [facility] 2017-08-07 08:30:00 2017-08-07 08:30:00 Appointment; NELSON NG M.D. MELTON, DANIELLE, M.D. [facility] UTP [id number] [facility] 2017-06-02 13:15:00 2017-06-02 13:15:00 Appointment; NELSON NG M.D. MELTON, DANIELLE, M.D. [facility] UTP [id number] [facility] 2017-05-08 11:15:00 2017-05-08 11:15:00 Appointment; NELSON NG M.D. MELTON, DANIELLE, M.D. [facility] UTP [id number] [facility] 2017-02-25 10:00:00 2017-02-25 10:00:00 Appointment; NELSON NG M.D. MELTON, DANIELLE, M.D. [facility] UTP [id number] [facility] 2017-01-25 02:48:00 2017-01-30 17:07:00 Discharged Inpatient [place] [facility] [id number] [facility] 2017-01-07 14:15:00 2017-01-07 14:15:00 Appointment; NELSON NG M.D. MELTON, DANIELLE, M.D. [facility] UTP [id number] [facility] Results Test Description Test Time Test Comments Results Result Comments Source TIFFANIE ANGUIANO [facility] 2020-01-13 16:09:00 [facility] 1980 Sex: M [place] [address] Patient Name: MANJIT LUO MR #: [id number] : 1980 Age/Sex: 39/M Req #: [id number] Adm Physician: Ordered by: SHEREE TRAMMELL MD Report #: [id number] Location: DX Room/Bed: Procedure: [id number] IVAN/TIFFANIE ANGUIANO [facility] OR REM Exam Date: 01/13/20 Exam Time: 1405 REPORT STATUS: Signed Please see dictation for this exam under the dictation for TUNNELED DIALYSIS CATHETER placement done on the same date. Signed by: Ace Ruvalcaba MD on 01/13/2020 4:10 PM Dictated By: ACE RUVALCABA MD 09 Transcribed By: TIFFANY on 01/13/201609 COPY TO: SHEREE TRAMMELL MD MOD SEDATE INITIAL >5 YRS 2020-01-13 16:09:00 [facility] CENTERName: MANJIT LUO : 1980 Sex: [place] [address] Patient Name: MANJIT LUO MR #: [id number] : 1980 Age/Sex: 39/M Req #: [id number] Adm Physician: Ordered by: SHEREE TRAMMELL MD Report #: [id number] Location: DX Room/Bed: Procedure: [id number] DX/MOD SEDATE INITIAL >5 YRS Exam Date: 01/13/20 Exam Time: 1449 REPORT STATUS: Signed Please see dictation for this exam under the dictation for TUNNELED DIALYSIS CATHETER placement done on the same date. Signed by: Ace Ruvalcaba MD on 01/13/2020 4:10 PM Dictated By: ACE RUVALCABA MD 09 Transcribed By: TIFFANY on 01/13/201609 COPY TO: SHEREE TRAMMELL MD MOD SEDATE ADD 15 MIN>5YRS 2020-01-13 16:09:00 [facility] CENTERName: MANJIT LUO : 1980 Sex: M [place] [address] Patient Name: MANJIT LUO MR #: [id number] : 1980 Age/Sex: 39/M Req #: [id number] Adm Physician: Ordered by: SHEREE TRAMMELL MD Report #: [id number] Location: DX Room/Bed: Procedure: [id number] DX/MOD SEDATE ADD 15 MIN>5YRS Exam Date: 01/13/20 Exam Time: 1505 REPORT STATUS: Signed Please see dictation for this exam under the dictation for TUNNELED DIALYSIS CATHETER placement done on the same date. Signed by: Ace Ruvalcaba MD on 01/13/2020 4:10 PM Dictated By: ACE RUVALCABA MD 09 Transcribed By: TIFFANY on 01/13/201609 COPY TO: SHEREE TRAMMELL MD GUIDANCE FOR VASCULAR ACCES 2020-01-13 16:09:00 [facility] CENTERName: MANJIT LUO : 1980 Sex: M [facility] [address] [place] [address] Patient Name: MANJIT LUO MR #: [id number] : 1980 Age/Sex: 39/M Req #: [id number] Adm Physician: Ordered by: SHEREE TRAMMELL MD Report #: [id number] Location: Room/Bed: Procedure: [id number] US/ GUIDANCE FOR VASCULAR ACCES Exam Date: Exam Time: REPORT STATUS: Signed Please see dictation for this exam under the dictation for TUNNELED DIALYSIS CATHETER placement done on the same date. Signed by: Ace Ruvalcaba MD on 01/13/2020 4:10 PM Dictated By: ACE RUVALCABA MD 09 Transcribed By: TIFFANY on 01/13/201609 COPY TO: SHEREE TRAMMELL MD TUNNELLED CVC INSERT W/O PORT 2020-01-13 16:08:00 [facility] 1980 Sex: M [facility] [address] [place] [address] Patient Name: MANJIT LUO MR #: [id number] : 1980 Age/Sex: 39/M Req #: [id number] [facility] Physician: Ordered by: SHEREE TRAMMELL MD Report #: [id number] Location: DX Room/Bed: Procedure: [id number] IR/TUNNELLED CVC INSERT W/O PORT Exam Date: Exam Time: REPORT STATUS: Signed Procedure: Tunneled dialysis catheter placement in exchange for the existing temporary hemodialysis catheter. History: Need for long- term hemodialysis. Commercial Carpet Installer: Ace Ruvalcaba MD. Dial Painter: Not applicable, M.D. Modality: Fluoroscopy DOSE REDUCTION: The examination was performed according to departmental dose-optimization program. Fluoro time: 0.4 minutes Radiation dose for this procedure was 3.07 mGy air Kerma. Sedation: Versed 1 mg and fentanyl 50 mcg was given intravenously for conscious sedation. Vital signs were monitored throughout the procedure by a dedicated RN under direct supervision of Dr. Ruvalcaba, and remained stable. Medicines: Ancef 1 g IV. Anesthesia: Lidocaine local infiltration. Physician intraprocedure sedation time was 15 minutes. Estimated blood loss: < 5 cc. Technique: Informed written consent was obtained. Discussion of risks, benefits, and alternatives were made with the patient. The patient expressed understanding and agreed to proceed. A universal timeout was performed prior to starting the procedure. The procedure room personnel used personal protective equipment. The operators used sterile gowns and gloves additionally. A sterile prep and drape of the right neck and upper chest was performed using maximal sterile technique. Using aseptic precautions, after local anesthesia, a 035 guidewire was advanced into the central venous system under fluoroscopic guidance through the existing catheter. Over the wire a peel-away sheath was placed in exchange for the temporary catheter. After local anesthesia, an incision was created in the subclavicular exit site location and a cuffed tunneled dialysis catheter of an appropriate length was tunneled from the exit site to the venotomy site using a tunneling device. The catheter was advanced into the venous system through the peel-away sheath which was removed. The catheter aspirated and flushed well and was terminally packed with heparin 1000 units per cc. The catheter was secured to skin using nonabsorbable suture and a CHG dressing applied. The venotomy site was closed using Dermabond. An aseptic dressing was applied using the protocol for Dermabond. The patient was transferred to the recovery area and was discharged from the department in stable condition. Complications: None immediate. Device: 15.5 [place] x 19 cm cuff to tip Duraflow 2 catheter. Findings: Final image shows the catheter to be in good position with the catheter tip in the right atrium, an excellent position for use. There is no complication. Impression: Successful fluoroscopic guided right internal jugular vein route cuffed tunneled hemodialysis catheter placement in exchange for an existing temporary hemodialysis catheter using the same venous access. A new exit site and subcutaneous tunnel were created as described above. Thank you for the opportunity to assist in the care of your patient. Signed by: Ace Ruvalcaba MD on 01/13/2020 4:09 PM Dictated By: ACE RUVALCABA MD 08 Transcribed By: TIFFANY on 01/13/201608 COPY TO: SHEREE TRAMMELL MD Capillary blood glucose measurement by glucometer (mas s/volume) 2019-12-27 10:56:00 Test Item Bedside Glucose (test code = 63137-1) 73 mg/dL 70-120 Meter ID: [id number] Stone Oak Hospitalerum or plasma sodium measurement (moles/volume)2019-12-27 04:52:00* Test Item Value Reference Range Interpretation Comments Sodium Level (test code = 2951-2) 139 mmol/L 136-145 [facility] potassium measurement (moles/volume)2019-12-27 04:52:00* Test Item Value Reference Range Interpretation Comments Potassium Level (test code = 2823-3) 5.4 mmol/L 3.5-5.1 [facility] plasma chloride measurement (moles/volume)2019-12-27 04:52:00* Test Item Value Reference Range Interpretation Comments Chloride Level (test code = 2075-0) 101 mmol/L 98-107 [facility] or plasma carbon dioxide, total measurement (moles/volume)2019-12-27 04:52:00* Test Item Value Reference Range Interpretation Comments Carbon Dioxide Level (test code = 2028-9) 29 mmol/L 22-29 [facility] or plasma anion woa7339-13-08 04:52:00* Test Item Value Reference Range Interpretation Comments Anion Gap (test code = 22682-9) 14.4 mmol/L 8-16 [facility] plasma urea nitrogen measurement (mass/volume)2019-12-27 04:52:00* Test Item Value Reference Range Interpretation Comments Blood Urea Nitrogen (test code = 3094-0) 45 mg/dL 7- [facility] or plasma creatinine measurement (mass/volume)2019-12-27 04:52:00* Test Item Value Reference Range Interpretation Comments Creatinine (test code = 2160-0) 6.81 mg/dL 0.72-1.25 [facility] or plasma urea nitrogen/creatinine mass xjxfu7268-66-04 04:52:00* Test Item Value Reference Range Interpretation Comments BUN/Creatinine Ratio (test code = 3097-3) 7 6- [facility] filtration rate (GFR) prwhkapmcpncr1081-68-63 04:52:00* Test Item Value Reference Range Interpretation Comments Estimat Glomerular Filtration Rate (test code = 190538614) 9 mL/min >60 Ranges were taken from the National Kidney Disease Education Program and the [facility] [employer] literature.Reference ranges:60 or greater: Dxxont40-95 ( for 3 consecutive months): Chronic kidney disease 15 or less: Kidney failureMethodist Hospital NortheastGlucose wpuqfrtrial9281-04-62 04:52:00* Test Item Value Reference Range Interpretation Comments Glucose Level (test code = ESD5319) 177 mg/dL 74-118 [facility] or plasma calcium measurement (mass/volume)2019-12-27 04:52:00* Test Item Value Reference Range Interpretation Comments Calcium Level (test code = 95488-7) 7.6 mg/dL 8.4-10.2 [facility] leukocytes automated count (number/volume)2019-12-25 05:10:00* Test Item Value Reference Range Interpretation Comments White Blood Count (test code = 6690-2) 3.43 10*3/uL 4.8-10.8 [facility] erythrocytes automated count (number/volume)2019-12-25 05:10:00* Test Item Value Reference Range Interpretation Comments Red Blood Count (test code = 789-8) 4.62 10*6/mL 4.3-5.7 [facility] hemoglobin measurement (moles/volume)2019-12-25 05:10:00* Test Item Value Reference Range Interpretation Comments Hemoglobin (test code = 47113-7) 11.3 g/dL 14.0-18.0 [facility] NortheastAutomated blood hematocrit (volume fraction)2019-12-25 05:10:00* Test Item Value Reference Range Interpretation Comments Hematocrit (test code = 4544-3) 38.1 % 38.2-49.6 [facility] NortheastAutomated erythrocyte mean corpuscular glltmm5445-29-20 05:10:00* Test Item Value Reference Range Interpretation Comments Mean Corpuscular Volume (test code = 787-2) 82.5 81-99 [facility] NortheastAutomated erythrocyte mean corpuscular hemoglobin (mass per erythrocyte)2019-12-25 05:10:00* Test Item Value Reference Range Interpretation Comments Mean Corpuscular Hemoglobin (test code = 785-6) 24.5 pg 28-32 [facility] NortheastAutom[facility] erythrocyte mean corpuscular hemoglobin concentration measurement (mass/volume)2019-12-25 05:10:00* Test Item Value Reference Range Interpretation Comments Mean Corpuscular Hemoglobin Concent (test code = 786-4) 29.7 g/dL 31-35 [facility] NortheastRDW VmkWg-Gzv1999-66-01 05:10:00* Test Item Value Reference Range Interpretation Comments Red Cell Distribution Width (test code = 69779-7) 16.6 % 11.7 -14.4 [facility] NortheastAutomated blood platelet count (count/volume)2019-12-25 05:10:00* Test Item Value Reference Range Interpretation Comments Platelet Count (test code = 777-3) 73 10*3/uL 140-360 [facility] NortheastAutomated blood segmented neutrophil count as percentage of total afxjhdyhrb3258-89-25 05:10:00* Test Item Value Reference Range Interpretation Comments Neutrophils (%) (Auto) (test code = 75664-0) 54.1 % 38.7-80.0 [facility] NortheastAutomated blood lymphocyte count as percentage ot total aqgbdlhnkb2317-53-52 05:10:00* Test Item Value Reference Range Interpretation Comments Lymphocytes (%) (Auto) (test code = 736-9) 27.4 % 18.0-39.1 [facility] NortheastAutomated blood monocyte count as percentage of total edayetkksn1608-69-26 05:10:00* Test Item Value Reference Range Interpretation Comments Monocytes (%) (Auto) (test code = 5905-5) 12.0 % 4.4-11.3 [facility] NortheastAutomated blood eosinophil count as percentage of total sptfddruvo2375-91-11 05:10:00* Test Item Value Reference Range Interpretation Comments Eosinophils (%) (Auto) (test code = 713-8) 5.0 % 0.0-6.0 [facility] NortheastAutomated blood basophil count as percentage of total lvftxfjxpz7873-08-35 05:10:00* Test Item Value Reference Range Interpretation Comments Basophils (%) (Auto) (test code = 706-2) 0.3 % 0.0-1.0 [facility] NortheastFluoroscopic procedure less than one hour omibseoz7251-00-26 05:10:00* Test Item Value Reference Range Interpretation Comments IM GRANULOCYTES % (test code = IM GRANULOCYTES %) 1.2 % 0.0- 1.0 [facility] NortheastAutom[facility] blood neutrophil count 2019-12-25 05:10:00* Test Item Value Reference Range Interpretation Comments Neutrophils # (Auto) (test code = 751-8) 1.9 2.1-6.9 [facility]Blood lymphocytes count (number/volume) 2019-12-25 05:10:00* Test Item Value Reference Range Interpretation Comments Lymphocytes # (Auto) (test code = 87284-8) 0.9 1.0-3.2 [facility] NortheastBlood monocytes automated count (number/volume)2019-12-25 05:10:00* Test Item Value Reference Range Interpretation Comments Monocytes # (Auto) (test code = 742-7) 0.4 0.2-0.8 [facility] NortheastAutomated blood eosinophil count 2019-12-25 05:10:00* Test Item Value Reference Range Interpretation Comments Eosinophils # (Auto) (test code = 711-2) 0.2 0.0-0.4 [facility] NortheastAutomated blood basophil count (count/volume)2019-12-25 05:10:00* Test Item Value Reference Range Interpretation Comments Basophils # (Auto) (test code = 704-7) 0.0 0.0-0.1 [facility] NortheastFluoroscopic procedure less than one hour mtityspc2788-09-05 05:10:00* Test Item Value Reference Range Interpretation Comments Absolute Immature Granulocyte (auto (shin t code = Absolute Immature Granulocyte (auto) 0.04 10*3/uL 0-0.1 [facility] Hospitalpecimen source identification of body jislj4404-64-05 09:44:00* Test Item Value Reference Range Interpretation Comments Body Fluid Type (test code = 68950-8) PERITONEAL [facility] NortheastEvaluation of color of body fluid 2019-12-21 09:44:00* Test Item Value Reference Range Interpretation Comments Body Fluid Color (test code = 6824-7) STRAW [facility] NortheastDetermination of appearance of body fluid 2019-12-21 09:44:00* Test Item Value Reference Range Interpretation Comments Body Fluid Appearance (test code = 9335-1) CLEAR [facility] NortheastManual body fluid leukocytes count (number/volume)2019-12-21 09:44:00* Test Item Value Reference Range Interpretation Comments Body Fluid WBC (test code = 6743-9) 21 /uL [facility] NortheastManual body fluid erythrocytes count (number/volume)2019-12-21 09:44:00* Test Item Value Reference Range Interpretation Comments Body Fluid RBC (test code = 6741-3) 24 /uL [facility] NortheastManual body fluid neutrophils/100 qxcewyhoax9449-51-83 09:44:00* Test Item Value Reference Range Interpretation Comments Body Fluid Neutrophils (test code = 69252-0) 29 % [facility] NortheastBody fluid lymphocyte ajfyb3232-67-32 09:44:00* Test Item Value Reference Range Interpretation Comments Body Fluid Lymphocytes (test code = 07849048) 16 % [facility] NortheastBody fluid monocyte edyui4766-52-62 09:44:00* Test Item Value Reference Range Interpretation Comments Body Fluid Monocytes (test code = 16518-9) 53 % [facility] NortheastBody fluid eosinophil percentage 2019-12-21 09:44:00* Test Item Value Reference Range Interpretation Comments Body Fluid Eosinophils (test code = 37998-6) 2 % [facility] NortheastTotal cell azgqk8670-47-40 09:44:00* Test Item Value Reference Range Interpretation Comments Body Fluid Total Cells Counted (test code = 43401-2) 100 [facility] NortheastVenous blood ionized calcium measurement (mass/volume)2019-12-21 06:31:00* Test Item Value Reference Range Interpretation Comments Ionized Calcium (test code = 99624-3) 0.9 mmol/L 1.09-1.30 [facility] Hospitalerum or plasma creatine kinase measurement (enzymatic activity/volume)2019-12-20 16:48:00* Test Item Value Reference Range Interpretation Comments Creatine Kinase (test code = 2157-6) 177 [IU]/L 30-200 [facility] NortheastTroponin I measurement by highly sensitive enzyme gpizdkqjdtz6367-14-16 16:48:00* Test Item Value Reference Range Interpretation Comments Troponin I (test code = 71654-8) 0.011 ng/mL 0-0.300 [facility] Hospitalerum or plasma creatine kinase MB/creatine kinase.total by adjpizszpdgupsp1077-82-57 16:48:00* Test Item Value Reference Range Interpretation Comments Creatine Kinase MB (test code = 86729-7) 5.0 ng/mL 0.0-10.4 Performed at: [facility] [place], [place] [id number] Director: Doc Bartlett MD, Phone: [phone] Stone Oak Hospitalerum or plasma total bilirubin measurement (mass/volume)2019-12-20 06:12:00* Test Item Value Reference Range Interpretation Comments Total Bilirubin (test code = 1975-2) 0.3 mg/dL 0.2-1.2 [facility] NortheastFluoroscopic procedure less than one hour lknanqts6901-15-52 06:12:00* Test Item Value Reference Range Interpretation Comments Aspartate Amino Transf (AST/SGOT) (test code = Aspartate Amino Transf (AST/SGOT)) 21 [IU]/L 5-34 [facility] Hospitalerum or plasma alanine aminotransferase measurement (enzymatic activity/volume)2019-12-20 06:12:00* Test Item Value Reference Range Interpretation Comments Alanine Aminotransferase (ALT/SGPT) (test code = 1742-6) 36 [IU]/L 0-55 [facility] Hospitalerum or plasma protein measurement (mass/volume)2019-12-20 06:12:00* Test Item Value Reference Range Interpretation Comments Total Protein (test code = 2885-2) 7.7 g/dL 6.5-8.1 [facility] Hospitalerum or plasma albumin measurement (mass/volume)2019-12-20 06:12:00* Test Item Value Reference Range Interpretation Comments Albumin (test code = 1751-7) 2.3 g/dL 3.5-5.0 [facility] NortheastPl[facility] globulin measurement (mass/volume) 2019-12-20 06:12:00* Test Item Value Reference Range Interpretation Comments Globulin (test code = 17152-9) 5.4 g/dL 2.3-3.5 [facility] Hospitalerum or plasma albumin/globulin mass bsuzm3743-38-30 06:12:00* Test Item Value Reference Range Interpretation Comments Albumin/Globulin Ratio (test code = 1759-0) 0.4 0.8-2.0 [facility] Hospitalerum or plasma alkaline phosphatase measurement (enzymatic activity/volume)2019-12-20 06:12:00* Test Item Value Reference Range Interpretation Comments Alkaline Phosphatase (test code = 6768-6) 455 [IU]/L 40-150 [facility] Hospitalerum or plasma creatine kinase MB measurement (mass/volume)2019-12-20 06:12:00* Test Item Value Reference Range Interpretation Comments Creatine Kinase MB (test code = 05801-7) 5.10 ng/mL 0-4.3 [facility] NortheastUrine color jbhrakcnimhgv1015-08-87 03:56:00* Test Item Value Reference Range Interpretation Comments Urine Color (test code = 5778-6) YELLOW YELLOW [facility] NortheastUrine oopphyq1643-39-61 03:56:00* Test Item Value Reference Range Interpretation Comments Urine Clarity (test code = 80663-7) CLEAR [facility]AR [facility] by Test strip 2019-12-20 03:56:00* Test Item Value Reference Range Interpretation Comments Urine Specific Clark (test code = 5811-5) 1.020 1.010-1.02 5 [facility] by automated test simsb0051-77-32 03:56:00* Test Item Value Reference Range Interpretation Comments Urine pH (test code = 09393-8) 8.5 5-7 [facility] leukocyte esterase detection by rhvvtowo8855-04-80 03:56:00* Test Item Value Reference Range Interpretation Comments Urine Leukocyte Esterase (test code = 5799-2) NEGATIVE NEGATIVE [facility] nitrite hvvsoqfqh1516-99-85 03:56:00* Test Item Value Reference Range Interpretation Comments Urine Nitrite (test code = 56481-0) NEGATIVE NEGATIVE [facility] protein measurement by test strip (mass/volume)2019-12-20 03:56:00* Test Item Value Reference Range Interpretation Comments Urine Protein (test code = 5804-0) >=300 NEGATIVE [facility] glucose stxhvmdoz5451-89-87 03:56:00* Test Item Value Reference Range Interpretation Comments Urine Glucose (UA) (test code = 2349-9) 1+ NEGATIVE [facility] ketones detection by automated test igtym5554-62-04 03:56:00* Test Item Value Reference Range Interpretation Comments Urine Ketones (test code = 35584-1) NEGATIVE NEGATIVE [facility] urobilinogen measurement by test strip (mass/volume)2019-12-20 03:56:00* Test Item Value Reference Range Interpretation Comments Urine Urobilinogen (test code = 84991-4) 0.2 mg/dL 0.2-1 [facility] total bilirubin measurement (mass/volume)2019-12-20 03:56:00* Test Item Value Reference Range Interpretation Comments Urine Bilirubin (test code = 1978-6) NEGATIVE NEGATIVE [facility] erythrocytes gfujpdldo7940-62-88 03:56:00* Test Item Value Reference Range Interpretation Comments Urine Blood (test code = 45419-8) MODERATE NEGATIVE [facility] NortheastAutomated urine sediment leukocyte count by microscopy (number/high power field)2019-12-20 03:56:00* Test Item Value Reference Range Interpretation Comments Urine WBC (test code = 5821-4) 6-10 /[HPF] 0-5 [facility] NortheastErythrocytes detection in urine sediment by light nxbzxmghto9049-43-91 03:56:00* Test Item Value Reference Range Interpretation Comments Urine RBC (test code = 16909-3) 21-50 /[HPF] 0-5 [facility] NortheastBacteria detection in urine sediment by light fjhdzcwpyz0716-08-23 03:56:00* Test Item Value Reference Range Interpretation Comments Urine Bacteria (test code = 03965-1) FEW /[HPF] NONE [facility] NortheastEpithelial cells detection in urine sediment by light gtenpqzrqg1571-38-52 03:56:00* Test Item Value Reference Range Interpretation Comments Urine Epithelial Cells (test code = 62045-4) RARE /[LPF] NONE [facility] NortheastFluoroscopic procedure less than one hour lwzsdsfc7629-55-67 00:55:00* Test Item Value Reference Range Interpretation Comments Coronavirus (PCR) (test code = Coronavirus (PCR)) NOT DETECTED NOTD ETECTED SARS-CoV-2 PCRHologic Aptima SARS-CoV-2 assay is a nucleic amplification test in tended for the qualitative detection of RNA from SARS-CoV-2 from nasopharyngeal (SENIOR SQL DEVELOPER) specimens. It is used under Emergency Use Authorization (EUA) by FDA.A posi tive result is indicative of the presence of SARS-CoV-2 RNA. Clinical correlatio n with patient history and other diagnostic information is necessary to determin e patient infection status.A negative (Not Detected) result does not preclude SA RS-CoV-2 infection. Clinical Correlation with patient history and other diagnost ic information should be used in patient management decisions.Invalid: Unable to generate a valid result on this specimen. Please submit a new specimen for repr at testing oc clinically indicated.Tesing performed by:[facility] Laboratory Services[address] [place] [address] [id number], Marielle finley MD, PhDCHI [facility]aleCT ABDOMEN/PELVIS WO 2019-12-20 00:18:00 [facility] 1980 Sex: M* [place] [address] Patient Name: MANJIT LUO MR #: [id number] : 1980 Age/Sex: 39/M Req #: [id number] Adm Physician: ABHIJIT YODER MD Ordered by: JONATHAN YODER DO Report #: [id number] Location: MED/SURG2 Room/Bed: [facility] Procedure: [id number] CT/CT ABDOMEN/PELVIS WO Exam Date: 12/19/19 Exam Time: 2340 REPORT STATUS: Signed EXAM: CT Abdomen and Pelvis WITHOUT c ontrast INDICATION: L flank pain [id number] COMPARISON: None. TECHNIQUE: Abdomen and pelvis were scanned utilizing a multidetector he lical scanner from the lung base to the pubic symphysis without administration of IV contrast. Absence of intravenous contrast decreases sensitivity for det ection of focal lesions and vascular pathology. Coronal and sagittal reformati ons were obtained. Routine protocol was performed. IV CONTRAST: None ORAL CONTRAST: None COMPLICATIONS: None FINDINGS: LINES and TUBES: None. LOWER THORAX: New moderate right pleural effusio n. HEPATOBILIARY: No focal hepatic lesions. No biliary ductal dilation . GALLBLADDER: There are cholecystectomy clips. SPLEEN: No splenomega ly. PANCREAS: Stable duct dilatation. Scattered calcifications suggest chr onic pancreatitis. ADRENALS: No adrenal nodules KIDNEYS/URETERS: Right nephrectomy. No left hydronephrosis. GI TRACT: No abnormal distentio n, wall thickening, or evidence of bowel obstruction. Appendix is normal . PELVIC ORGANS/BLADDER: Suprapubic urinary bladder catheter. Mild strandin g of the fat surrounding the urinary bladder. LYMPH NODES: Unchanged mild ly enlarged iliac chain and inguinal lymph nodes. VESSELS: Unremarkable. PERITONEUM / RETROPERITONEUM: Dialysis catheter coiled in the dependent right hemiabdomen pelvis. Small volume free fluid. Trace intraperitoneal free air under the left hemidiaphragm. BONES: Findings of renal osteodystrophy. 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 IMPRESSION: Lack of IV contrast limits evalua tion of the solid organs and vasculature. 1. Trace intraperitoneal free ai r under the left hemidiaphragm. Given lack of additional evidence of intra-abd ominal pathology, this may be due to recent instrumentation such as catheter p lacement, adjustment, or use. 2. Mild fat stranding about the decompressed ur inary bladder with wall thickening. Correlate with urinalysis. 3. New moder ate right pleural effusion. Small volume peritoneal ascites. Signed by: Harry Galarza MD on 12/20/2019 1:01 AM Dictated By: ABHIJIT GALARZA MD Elect ronically Signed By: ABHIJIT GALARZA MD on 12/20/19100 Transcribed By: TIFFANY on 12/20/19100 COPY TO: JONATHAN YODER DO Blood platelets count by estimate (number/volume)2019-12-15 06:05:00* Test Item Value Reference Range Interpretation Comments Platelet Estimate (test code = 92638-6) SLIGHTLY DECREASED [facility] NortheastPlatelet iwvopqvulu9670-73-95 06:05:00* Test Item Value Reference Range Interpretation Comments Platelet Morphology Comment (test code = 66285-8) NORMAL [facility] NortheastBlood hypochromia detection by light izxplxkjqp6250-46-33 06:05:00* Test Item Value Reference Range Interpretation Comments Hypochromasia (test code = 728-6) SLIGHT [facility] NortheastBlood anisocytosis detection by light xymyrrogzm9834-56-99 06:05:00* Test Item Value Reference Range Interpretation Comments Anisocytosis (test code = 702-1) SLIGHT [facility] NortheastRBC chngsobdmi0847-19-10 06:05:00* Test Item Value Reference Range Interpretation Comments Red Cell Morphology Comment (test code = 6742-1) NORMAL [facility] NortheastPhosphorus fhmngoevopw7580-14-47 06:05:00 * Test Item Value Reference Range Interpretation Comments Phosphorus Level (test code = SAY9135) 6.7 mg/dL 2.3-4.7 [facility] Hospitalerum or plasma magnesium measurement (mass/volume)2019-12-15 06:05:00* Test Item Value Reference Range Interpretation Comments Magnesium Level (test code = 78803-8) 2.1 mg/dL 1.3-2.1 [facility] NortheastBlood cobalamin (vitamin B12) measurement (mass/volume)2019-12-15 06:05:00* Test Item Value Reference Range Interpretation Comments Vitamin B12 Level (test code = 05194-4) 451 pg/mL 213-816 [facility] Hospitalerum or plasma thyrotropin measurement by detection limit <= 0.005 miu/l (units/volume)2019-12-15 06:05:00* Test Item Value Reference Range Interpretation Comments Thyroid Stimulating Hormone (TSH) (test code = 23733-8) 2.687 0.350-4.940 [facility] Hospitalerum or plasma folate measurement (mass/volume)2019-12-15 06:05:00* Test Item Value Reference Range Interpretation Comments Folate (test code = 2284-8) 4.3 ng/mL >3.0 A serum folate concentration of less than 3.1 ng/mL isconsidered to represent cl inical deficiency.Performed at: [facility] - [facility] [address] [id number] Director: Doc Bartlett MD, Phone: [phone] [facility] SunnyvaleCHES SINGLE (PORTABLE)2019-12-12 01:03:00 [facility] 1980 Sex: M* [place] [address] Patient Name: MANJIT LUO MR #: [id number] : 1980 Age/Sex: 39/M Req #: [id number] [facility] Physician: ABHIJIT YODER MD Ordered by: MARIELLE MARSH MD Report #: [id number] Location: MED/SURG Room/Bed: [facility] Procedure: [id number] DX/CHEST SINGLE (PORTABLE) Exam Date: 12/12/19 Exam Time: 0033 REPORT STATUS: Signed EXAMINATION: CHEST SINGLE (PORTABLE) INDICATION: generalized weakness Y COMPARI SON: 08/04/2019 FINDINGS: AP view TUBES and LINES: None. LUNGS: Low lung volumes. There is no evidence of pneumonia or pulmonary ed ravi. PLEURA: No pleural effusion or pneumothorax. HEART AND MEDIASTIN UM: The cardiomediastinal silhouette is unremarkable. BONES AND SOFT T ISSUES: No acute osseous lesion. Soft tissues are unremarkable. UPPER A BDOMEN: No free air under the diaphragm. IMPRESSION: No acute thorac ic abnormality. Signed by: Dr. Dona Wesley MD on 12/12/2019 1:07 AM Dictated By: DONA WESLEY MD 6 Transcribed By: TIFFANY on 12/12/19106 COPY TO: MARIELLE GONZALEZ MD Blood szbmuye8656-10-76 00:53:00* Test Item Value Reference Range Interpretation Comments Blood Culture (test code = 96402182) NO GROWTH AFTER 5 DAYS, FINAL REPORT [facility] NortheastBacterial urine nmlrgia9257-02-61 00:53:00* Test Item Value Reference Range Interpretation Comments Urine Culture (test code = 630-4) PSEUDOMONAS AERUGINOSA [facility] NortheastAFB cjtakxb5139-66-27 12:13:10* Test Item Value Reference Range Interpretation Comments AFB culture isolate (test code = 543-9) No growth after 6 we eks of incubation. Specimen InformationSpecimen Source: Specimen Site: [facility] MethodistFungus fmpfdnu5743-60-11 12:15:05* Test Item Value Reference Range Interpretation Comments Fungus culture isolate (test code = 1441) No growth af ter 4 weeks of incubation. Specimen Information Specimen Source: Specimen Site: [facility] MethodistECG 12 leum4925-38-33 14:50:41* Test Item Value Reference Range Interpretation Comments Ventricular rate (test code = 253) 99 Atrial rate (test code = 255) 99 TN interval (test code = 266) 106 QRSD interval (test code = 260) 92 QT interval (test code = 264) 370 QTC interval (test code = 265) 474 P axis 1 (test code = 267) 26 QRS axis 1 (test code = 268) 1 T wave axis (test code = 270) 75 EKG impression (test code = 273) Sinus rhythm with lina rt TN-Cannot rule out Inferior infarct , age undetermined-Abnormal ECG-In automated comparison with ECG of 08-APR-2017 16:07,-TN interval has decreased-Questionable change in QRS axis-ST no longer elevated in Inferior leads-T wave amplitude has decreased in Inferior leads-Nonspecific T wave abnormality now evident in Lateral leads-QT has lengthened- [place] MethodistAnaerobic mymdner7241-41-19 12:59:54* Test Item Value Reference Range Interpretation Comments Anaerobic culture isolate (test code = 552) No anaerobic organis ms isolated. Specimen InformationSpecimen Source: Spe cimen [facility] rgiws6705-03-93 12:59:54* Test Item Value Reference Range Interpretation Comments AFB stain (test code = 676-7) No acid fast bacilli (AFB) seen. Specimen InformationSpecimen Source: Specimen Site: [facility] MethodistFungus ayimo7353-96-15 12:59:54* Test Item Value Reference Range Interpretation Comments Fungus smear (test code = 1443) No fungi observed. Specimen InformationSpecimen Source: Specimen Site: [facility] MethodistGram nthkm3923-62-76 12:59:54Gram stain isolateMany WBC'sNo organisms seen Comment: Specimen InformationSpecimen Source: Specimen Site: [facility] MethodistAerobic tsxfimh6038-01-41 12:59:54 Aerobic culture isolateNo growth after 3 days.No growth after 4 days. Comment: Christiano isbell InformationSpecimen Source: Specimen Site: [facility] Methodnew [facility] las vegasBlood culture, aerobic & rmqxdrgte3203-71-69 08:03:04* Test Item Value Reference Range Interpretation Comments Blood culture isolate (test code = 600-7) No growth after 5 days of incubation. Specimen InformationSpecimen Source: BloodSpecimen Site: Unspecified [place] [facility] iaojmyi0192-34-79 07:25:34* Test Item Value Reference Range Interpretation Comments Urine culture isolate (test code = 17023-8) No growth after 24 hour s Specimen InformationSpecimen Source: UrineSpecimen Site: Catheterized [place] [facility] cixnqbs0373-72-20 12:22:21* Test Item Value Reference Range Interpretation Comments POC glucose (test code = 14401-9) 145 mg/dL 65-99 H Trauma Surgeon Name: Cheng Anna ID: [id number]: [facility] Notified park superintendent Interpretation (test code = 50722-8) Abnormal [facility], TxistUrinalysis screen and microscopy, with reflex to culture 2019-08-18 22:55:10* Test Item Value Reference Range Interpretation Comments Specimen site (test code = 4733017) Catheterized Color, UA (test code = 5778-6) Straw Appearance, UA (test code = 5767-9) Hazy Specific gravity, UA (test code = 5811-5) 1.012 1.001-1.035 pH, UA (test code = 5803-2) 5.0 5.0-8.5 Protein, UA (test code = 49441-6) 1+ Negative A Glucose, UA (test code = 38570-2) 2+ Negative A Ketones, UA (test code = 2514-8) Negative Negative Bilirubin, UA (test code = 5770-3) Negative Negative Blood, UA (test code = 5794-3) Moderate Negative A Nitrite, UA (test code = 5802-4) Negative Negative Urobilinogen, UA (test code = 88959-2) <2.0 <2.0 Leukocyte esterase, UA (test code = 5799-2) Small Negative A WBC, UA (test code = 5821-4) 25 0- 1 /HPF H RBC, UA (test code = 45960-4) 4 0- 5 /HPF Bacteria, UA (test code = 55817-9) Few None seen Yeast, UA (test code = 45964-0) None seen Yeast with pseudohyphae, UA (test code = 66392-2) None seen Lab Interpretation (test code = 63966-0) Abnormal [place] MethodistCOVID-19 qualitative MGI7190-34-44 12:12:15* Test Item Value Reference Range Interpretation Comments Interpretation (test code = 0839017) Negative results do not preclude 2019-nCoV infection and should not be used as the sole basis for treatment or other patient management decisions. Negative results must be combined with clinical observations, patient history, and epidemiological information. COVID-19 qualitative PCR result (test code = 81211-7) Not-Detect ed Not-Detected COVID-19 qualitative PCR (test code = 7070) See link below for P DF Lab Report [place] MethodistHepatitis B surface fxjtznv7129-96-64 08:10:47* Test Item Value Reference Range Interpretation Comments Hepatitis B surface Ag (test code = 5195-3) Non-reactive Non-reacti ve [facility], TxistBasic metabolic cmusa7546-83-66 10:17:32* Test Item Value Reference Range Interpretation Comments Sodium (test code = 2951-2) 139 135- 148 mEq/L Potassium (test code = 2823-3) 4.4 3.5- 5.0 mEq/L Chloride (test code = 2075-0) 101 98- 112 mEq/L CO2 (test code = 8-9) 23 24- 31 mEq/L L Anion gap (test code = 46359-5) 15@ANIO 7- 15 mEq/L BUN (test code = 3094-0) 36 mg/dL 6-20 H Creatinine (test code = 2160-0) 5.25 mg/dL 0.7-1.2 H Glucose (test code = 2345-7) 146 mg/dL 65-99 H Calcium (test code = 64432-9) 8.2 mg/dL 8.3-10.2 L Lab Interpretation (test code = 29593-8) Abnormal [place] MethodistEstimated KZU4169-37-76 10:17:32* Test Item Value Reference Range Interpretation Comments Estimated GFR (test code = 5488) 13 mL/min/1.73 m2 A Catergory Units InterpretationG1 >=90 Normal or highG2 60-89 Mildly ytolurbpfH1o 45-59 Mildly to moderately afljuozjdP9b 30-44 Moderately to severely decreasedG4 15-29 Severely decreasedG5 <15 Kidney failureThe eGFR was calculated using the Chronic Kidney Disease Epidemiology Collaboration (CKD-EPI) equation. Interpretation is based on recommendations of the National Kidney Foundation-Kidney Disease Outcomes Quality Initiative (NKF-KDOQI) published in 2014. Lab Interpretation (test code = 95395-6) Abnormal [place] MethodistHemoglobin E5q1914-54-71 09:05:15* Test Item Value Reference Range Interpretation Comments Hemoglobin A1C (test code = 74296-5) 6.5 % 4-5.6 H HbA1c cutoffs for diagnosing diabetes:4.0% - 5.6% = normal5.7% - 6.4% = increased risk for diabetes (prediabetes)9>=6.5% = hnweqrry2Ouxol for glycemic control (ADA 2016)< 7.0% Target for non adults with diabetes. More or less stringent targets may be appropriate for individual patients. <7.5% Target for Children and adolescents with type 1 diabetes. Lab Interpretation (test code = 38881-6) Abnormal [place] MethodistCBC with platelet and balvbcipcqtv9916-12-13 07:41:09* Test Item Value Reference Range Interpretation Comments WBC (test code = 28897-6) 3.73 4.50- 11.00 k/uL L RBC (test code = 76205-1) 4.16 m/uL 4.4-6 L HGB (test code = 718-7) 10.1 g/dL 14-18 L HCT (test code = 4544-3) 34.5 % 41-51 L MCV (test code = 787-2) 82.9 fL 82-100 MCH (test code = 785-6) 24.3 pg 27-34 L MCHC (test code = 786-4) 29.3 g/dL 31-37 L RDW - SD (test code = 75142-2) 42.0 fL 37-55 MPV (test code = 91043-2) 8.5 fL 8.8-13.2 L Platelet count (test code = 82933-0) 190 150- 400 k/uL Nucleated RBC (test code = 79271-4) 0.00 /100 WBC Neutrophils (test code = 77387-5) 56.8 % 39-69 Lymphocytes (test code = 58544-5) 30.3 % 25-45 Monocytes (test code = 77855-4) 7.5 % 0-10 Eosinophils (test code = 97139-7) 3.5 % 0-5 Basophils (test code = 56138-2) 0.3 % 0-1 Immature granulocytes (test code = 61118-1) 1.6 % 0-1 H "Immature granulocytes" (promyelocytes, myelocytes, metamyelocytes) Lab Interpretation (test code = 91469-8) Abnormal [place] MethodistCell count and differential, body quppx5391-02-01 21:07:29* Test Item Value Reference Range Interpretation Comments Misc fluid type (test code = 01020-4) Synovial Color, fluid (test code = 6824-7) Red Appearance, fluid (test code = 9335-1) Hazy RBC, fluid (test code = 39231-3) 81045 /CMM Nucleated cells, fluid (test code = 44774-9) 31011 /CMM Fluid mononuclear cell (test code = 1407) See Diff Neutrophils, fluid (test code = 33650-2) 89 % Lymphocytes, fluid (test code = 46851-8) 2 % Macrophages, fluid (test code = 58103-7) 9 % [place] MethodistCrystal ldmycpmi9616-58-85 19:50:35* Test Item Value Reference Range Interpretation Comments Crystal analysis specimen type (test code = 1160) Knee Right knee joint aspirate Monosodium urate (test code = 2526154) None seen None seen CPPD crystals (test code = 1135) None seen None seen [place] MethodistSedimentation tnyy4709-26-26 17:40:51* Test Item Value Reference Range Interpretation Comments Sedimentation rate (test code = 00453-9) 87 0- 10 mm/hr H Lab Interpretation (test code = 78962-5) Abnormal [place] MethodistC-reactive ifbvsfr5137-82-92 17:13:47* Test Item Value Reference Range Interpretation Comments CRP (test code = 1988-5) 5.40 mg/dL 0-0.5 H Lab Interpretation (test code = 21377-2) Abnormal [place] MethodistComprehensive metabolic yrwzo0214-40-85 17:13:46* Test Item Value Reference Range Interpretation Comments Sodium (test code = 2951-2) 138 135- 148 mEq/L Potassium (test code = 2823-3) 4.2 3.5- 5.0 mEq/L Chloride (test code = 5-0) 102 98- 112 mEq/L CO2 (test code = 2027-9) 24 24- 31 mEq/L Anion gap (test code = 94744-1) 12@ANIO 7- 15 mEq/L BUN (test code = 3094-0) 35 mg/dL 6-20 H Creatinine (test code = 2160-0) 5.44 mg/dL 0.7-1.2 H Glucose (test code = 2345-7) 233 mg/dL 65-99 H Calcium (test code = 03100-0) 8.1 mg/dL 8.3-10.2 L Protein (test code = 2885-2) 7.3 g/dL 6.3-8.3 -[place] 4.6- 7.0 g/dL1 week 4.4-7.6 g/dL7 months-1year 5.1-7.3 g/dL1-2 years 5.6-7.5 g/dL>3 years 6.0-8.0 g/iE23-649 6.3-8.3 g/dL Albumin (test code = 1751-7) 1.9 g/dL 3.5-5 L A/G ratio (test code = 1759-0) 0.4 0.7-3.8 L Alkaline phosphatase (test code = 6768-6) 216 U/L 40-129 H AST (test code = 1920-8) 14 U/L 10-50 ALT (test code = 1742-6) 13 U/L 5-50 Total bilirubin (test code = 1974-2) <0.2 0-1.2 Lab Interpretation (test code = 13526-0) Abnormal [place] MethodistPartial thromboplastin time, zdscmjdzd8477-52-41 16:44:57* Test Item Value Reference Range Interpretation Comments PTT (test code = 41750-6) 35.3 23.0- 36.0 sec PTT therapeutic range for unfractionated heparin is61.0-112.0 seconds which corresponds to Anti-Xa0.3-0.7 U/ml. [place] MethodistProthrombin time with NSR6325-41-94 16:41:55* Test Item Value Reference Range Interpretation Comments Prothrombin time (test code = 5902-2) 16.0 11.5- 14.5 sec H INR (test code = 25244-3) 1.3 Th e International Normalized Ratio (INR) is a therapeutic monitoring tool for patients who are stable on oral anticoagulant therapy. An INR of 2.0-3.0 is suggested for deep vein thrombosis/pulmonary embolism. Lab Interpretation (test code = 38571-0) Abnormal [place] MethodistXR Knee 4+ Vw Miobg8261-26-87 14:44:09Hm Interface, Radiology Results 08/14/2019 2:47 PM [...] patellar component appear intact . No loosening noted.[facility] MethodistAdventhealth Lake Placidillary blood glucose measurement by glucometer (mass/volume)2019-08-10 10:38:00* Test Item Value Reference Range Interpretation Comments Bedside Glucose (test code = 03942-4) 170 70-120 Meter ID: [id number] [facility]aleIR EINFNTO6741-17-10 16:27:00 [facility] [address] [address] Patient Name: MANJIT LUO MR #: [id number] : 1980 Age/Sex: 39/M Req #: [id number] Adm Physician: ABHIJIT YODER MD Ordered by: FAIZA DOWNEY Report #: [id number] Location: MED/SURG3 Room/Bed: [facility] Procedure: [id number] DX/IR CONS ULT Exam Date: Exam Time: [...] Fluoroscopy time (minutes): 0.0 Reference air kerma (mGy) : 0.1 Additional Details Additional description of procedure: [...] COPY TO: LORE DOWNEY REMOVAL TUNNEDLED CV MJOF1579-87-48 16:27:00 [facility] [address] [place] [address] Patient Name: MANJIT LUO MR #: [id number] : 1980 Age/Sex: 39/M Req #: [id number] Adm Physician: ABHIJIT YODER MD Ordered by: FAIZA DOWNEY Report #: [id number] Location: MED/SURG3 [facility]/Bed: 2951 Procedure: IR/REMOVAL TUNNEDLED CV CATH Exam Date: [...] cutaneous antisepsis. Anesthesia/sedation Level of anesthesia/sedation: No sedatio n Anesthesia/sedation administered by: Not applicable Catheter removal [...] COPY TO: FAIZA DOWNEY KNEE RIGHT THREE SINNO4585-83-69 14:06:00 [place] [address] Patient Name: MANJIT LUO MR #: [id number] : 1980 Age/Sex: 39/M Req #: [id number] Adm Physician: ABHIJIT YODER MD Ordered by: ABHIJIT YODER MD Report #: [id number] Location: MED/SURG3 Room/Bed: [facility] Procedure: [id number] DX/KNEE RIGHT TH REE VIEWS Exam Date: [...] PM Dictated By: JOSE F FERRER MD 1409 Tra nscribed By: TIFFANY on 08/09/19 1409 COPY TO: ABHIJIT YODER MD Serum or plasma intact pararthyroid hormone measurement (mass/volume)2019-08-09 06:45:00* Test Item Value Reference Range Interpretation Comments Parathyroid Hormone (test code = 2731-8) 198 pg/mL 15-65 [facility] calcium measurement (mass/volume)2019-08-09 06:45:00* Test Item Value Reference Range Interpretation Comments Calcium (Send out) (test code = 63004-9) 7.0 mg/dL 8.7-10.2 [facility]Fluor[facility] procedure less than one hour mgvldphg1098-44-87 06:45:00* Test Item Value Reference Range Interpretation Comments Parathyroid Hormone Interpretation (test code = Parathyroid Hormone Interpretation) Comment . Interpretation Intact PTH Calcium (pg/mL) (mg/dL)Normal 15 - 65 8.6 - 10.2Pr imary Hyperparathyroidism >65 >10.2Secondary Hyperparathyroidism >65 <10.2Non-Parathyroid Hypercalcemia <65 >10.2Hypoparathyroidism <15 < 8.6Non- Parathyroid Hypocalcemia 15 - 65 < 8.6Performed at: HD - [facility] [address] [place], [place] [id number] Director: Doc Bartlett MD, Phone: [phone] at: BN - [facility] [address] [place], [place] [id number] Director: Raul Bolivar MD, Phone: [phone] Stone Oak Hospitalerum or plasma sodium measurement (moles/volume)2019-08-09 05:45:00* Test Item Value Reference Range Interpretation Comments Sodium Level (test code = 2951-2) 136 136-145 [facility] potassium measurement (moles/volume)2019-08-09 05:45:00* Test Item Value Reference Range Interpretation Comments Potassium Level (test code = 2823-3) 4.1 3.5-5.1 [facility] chloride measurement (moles/volume)2019-08-09 05:45:00* Test Item Value Reference Range Interpretation Comments Chloride Level (test code = 2075-0) 100 98-107 [facility] plasma carbon dioxide, total measurement (moles/volume)2019-08-09 05:45:00* Test Item Value Reference Range Interpretation Comments Carbon Dioxide Level (test code = 2028-9) 25 22-29 [facility]er[facility] plasma anion fwk6167-71-39 05:45:00* Test Item Value Reference Range Interpretation Comments Anion Gap (test code = 90138-2) 15.1 8-16 [facility] urea nitrogen measurement (mass/volume)2019-08-09 05:45:00* Test Item Value Reference Range Interpretation Comments Blood Urea Nitrogen (test code = 3094-0) 37 7-26 [facility] plasma creatinine measurement (mass/volume)2019-08-09 05:45:00* Test Item Value Reference Range Interpretation Comments Creatinine (test code = 2160-0) 6.05 0.72-1.25 [facility]er[facility] plasma urea nitrogen/creatinine mass zswfp1279-95-51 05:45:00* Test Item Value Reference Range Interpretation Comments BUN/Creatinine Ratio (test code = 3097-3) 6 6-25 [facility] NortheastEstimated glomerular filtration rate (GFR) udnmpeqnysrej1013-56-83 05:45:00* Test Item Value Reference Range Interpretation Comments Estimat Glomerular Filtration Rate (test code = 030856513) 10 >60 Ranges were taken from the National Kidney Disease Education Program and the [facility] Kidney Foundation literature.Reference ranges:60 or greater: Cbvqfy19-43 ( for 3 consecutive months): Chronic kidney disease 15 or less: Kidney failureMethodist Hospital NortheastGlucose wzjivnkdlcn9244-46-00 05:45:00* Test Item Value Reference Range Interpretation Comments Glucose Level (test code = XOL8098) 115 74-118 [facility]er[facility] plasma calcium measurement (mass/volume)2019-08-09 05:45:00* Test Item Value Reference Range Interpretation Comments Calcium Level (test code = 09483-2) 7.4 8.4-10.2 [facility] NortheastPhosphorus phivkxsvuos1984-18-91 05:45:00 * Test Item Value Reference Range Interpretation Comments Phosphorus Level (test code = SNF7344) 5.2 2.3-4.7 [facility] albumin measurement (mass/volume)2019-08-09 05:45:00* Test Item Value Reference Range Interpretation Comments Albumin (test code = 1751-7) 1.7 3.5-5.0 [facility]er[facility] plasma intact pararthyroid hormone measurement (mass/volume)2019-08-09 05:45:00* Test Item Value Reference Range Interpretation Comments Parathyroid Hormone (test code = 2731-8) 198 15-65 [facility]er[facility] calcium measurement (mass/volume)2019-08-09 05:45:00* Test Item Value Reference Range Interpretation Comments Calcium (Send out) (test code = 27692-0) 7.0 8.7-10.2 [facility] NortheastFluoroscopic procedure less than one hour wxifmmeq9966-76-61 05:45:00* Test Item Value Reference Range Interpretation Comments Parathyroid Hormone Interpretation (test code = Parathyroid Hormone Interpretation) Comment . Interpretation Intact PTH Calcium (pg/mL) (mg/dL)Normal 15 - 65 8.6 - 10.2Pr imary Hyperparathyroidism >65 >10.2Secondary Hyperparathyroidism >65 <10.2Non-Parathyroid Hypercalcemia <65 >10.2Hypoparathyroidism <15 < 8.6Non- Parathyroid Hypocalcemia 15 - 65 < 8.6Performed at: HD - [facility] [address] [place], [place] [id number] Director: Doc Bartlett MD, Phone: [phone] at: - [facility] [id number] Director: Raul Bolivar MD, Phone: [phone] Hospital NortheastBacterial urine obcdsyd3865-42-06 10:57:00* Test Item Value Reference Range Interpretation Comments Urine Culture (test code = 630-4) ENTEROCOCCUS FAECALIS [facility] NortheastBacterial urine dgyjvwl7133-89-81 09:57:00* Test Item Value Reference Range Interpretation Comments Urine Culture (test code = 630-4) ENTEROCOCCUS FAECALIS [facility] NortheastBlglencoe [facility] leukocytes automated count (number/volume)2019-08-08 05:30:00* Test Item Value Reference Range Interpretation Comments White Blood Count (test code = 6690-2) 4.79 4.8-10.8 [facility] erythrocytes automated count (number/volume)2019-08-08 05:30:00* Test Item Value Reference Range Interpretation Comments Red Blood Count (test code = 789-8) 3.83 4.3-5.7 [facility] NortheastBlood hemoglobin measurement (moles/volume)2019-08-08 05:30:00* Test Item Value Reference Range Interpretation Comments Hemoglobin (test code = 89197-7) 9.8 14.0-18.0 [facility] NortheastAutomated blood hematocrit (volume fraction)2019-08-08 05:30:00* Test Item Value Reference Range Interpretation Comments Hematocrit (test code = 4544-3) 30.8 38.2-49.6 [facility] NortheastAutomated erythrocyte mean corpuscular umajdb3647-39-96 05:30:00* Test Item Value Reference Range Interpretation [...] = 786-4) 31.8 31-35 [facility] NortheastRDW PcaRp-Bur4151-71-15 05:30:00* Test Item Value Reference Range Interpretation Comments Red Cell Distribution Width (test code = 45542-5) 15.1 11.7 -14.4 [facility] NortheastAutomated blood platelet count (count/volume)2019-08-08 05:30:00* Test Item Value Reference Range Interpretation Comments Platelet Count (test code = 777-3) 143 140-360 [facility] NortheastAutomated blood segmented neutrophil count as percentage of total wclolduocz2263-54-38 05:30:00* Test Item Value Reference Range Interpretation Comments Neutrophils (%) (Auto) (test code = 13891-5) 58.9 38.7-80.0 [facility] NortheastAutomated blood lymphocyte count as percentage ot total qtdziwvptw9469-70-16 05:30:00* Test Item Value Reference Range Interpretation Comments Lymphocytes (%) (Auto) (test code = 736-9) 25.5 18.0-39.1 [facility] NortheastAutomated blood monocyte count as percentage of total qgbdrgkhuz2467-94-87 05:30:00* Test Item Value Reference Range Interpretation Comments Monocytes (%) (Auto) (test code = 5905-5) 11.9 4.4-11.3 [facility] NortheastAutomated blood eosinophil count as percentage of total mhudbujznw0013-84-70 05:30:00* Test Item Value Reference Range Interpretation Comments Eosinophils (%) (Auto) (test code = 713-8) 2.7 0.0-6.0 [facility] NortheastAutomated blood basophil count as percentage of total huvghvhimf7996-86-94 05:30:00* Test Item Value Reference Range Interpretation Comments Basophils (%) (Auto) (test code = 706-2) 0.6 0.0-1.0 [facility] NortheastFluoroscopic procedure less than one hour jhjfpblg4852-59-28 05:30:00* Test Item Value Reference Range Interpretation [...] Comments Lymphocytes # (Auto) (test code = 91519-0) 1.2 1.0-3.2 [facility] NortheastBlglencoe [facility] services monocytes automated count (number/volume)2019-08-08 05:30:00* Test Item [...] [facility] NortheastFluoroscopic procedure less than one hour njgwreto1303-55-41 05:30:00* Test Item Value Reference Range Interpretation Comments Absolute Immature Granulocyte (auto (shin t code = Absolute Immature Granulocyte (auto) 0.02 0-0.1 [facility] NortheastProthrombin time (PT) in platelet poor plasma by coagulation isolz5845-49-53 10:05:00* Test Item Value Reference Range Interpretation Comments Prothrombin Time (test code = 5902-2) 15.8 s 11.9-14.5 [facility] NortheastINR in Platelet poor plasma by Coagulation nizby2223-32-24 10:05:00* Test Item Value Reference Range Interpretation Comments [...] (aPTT) in platelet poor plasma by coagulation hdhcy4636-43-54 10:05:00* Test Item Value Reference Range Interpretation Comments Activated Partial Thromboplast Time (test code = 90592-4) 39.3 s 23.8-35.5 [facility] NortheastProthrombin time (PT) in platelet poor plasma by coagulation mzuvv9581-74-11 09:05:00* Test Item Value Reference Range Interpretation Comments Prothrombin Time (test code = 5902-2) 15.8 11.9-14.5 [facility] NortheastINR in Platelet poor plasma by Coagulation qltij4888-37-22 09:05:00* Test Item Value Reference Range Interpretation [...] (aPTT) in platelet poor plasma by coagulation uxiyz9557-38-53 09:05:00* Test Item Value Reference Range Interpretation Comments Activated Partial Thromboplast Time (test code = 96590-5) 39.3 23.8-35.5 [facility]er[facility] plasma total bilirubin measurement (mass/volume)2019-08-05 09:05:00* Test Item Value Reference Range Interpretation Comments Total Bilirubin (test code = 1975-2) 0.4 0.2-1.2 [facility] NortheastFluoroscopic procedure less than one hour xgmfmrdm3905-77-91 09:05:00* Test Item Value Reference Range Interpretation Comments Aspartate Amino Transf (AST/SGOT) (test code = Aspartate Amino Transf (AST/SGOT)) 18 5-34 [facility]erum or plasma alanine aminotransferase measurement (enzymatic activity/volume)2019-08-05 09:05:00* Test Item Value Reference Range Interpretation Comments Alanine Aminotransferase (ALT/SGPT) (test code = 1742-6) 14 0-55 [facility]er[facility] plasma protein measurement (mass/volume)2019-08-05 09:05:00* Test Item Value Reference Range Interpretation Comments Total Protein (test code = 2885-2) 6.7 6.5-8.1 [facility] NortheastPlasma globulin measurement (mass/volume) 2019-08-05 09:05:00* Test Item Value Reference Range Interpretation Comments Globulin (test code = 29451-0) 4.5 2.3-3.5 [facility]er[facility] plasma albumin/globulin mass dufst6418-32-66 09:05:00* Test Item Value Reference Range Interpretation Comments Albumin/Globulin Ratio (test code = 1759-0) 0.5 0.8-2.0 [facility]er[facility] or plasma alkaline phosphatase measurement (enzymatic activity/volume)2019-08-05 09:05:00* Test Item Value Reference Range Interpretation Comments Alkaline Phosphatase (test code = 6768-6) 186 40-150 [facility]erum or plasma creatine kinase measurement (enzymatic activity/volume)2019-08-05 09:05:00* Test Item Value Reference Range Interpretation Comments Creatine Kinase (test code = 2157-6) 64 30-200 [facility] Hospitalerum or plasma creatine kinase MB measurement (mass/volume)2019-08-05 09:05:00* Test Item Value Reference Range Interpretation Comments Creatine Kinase MB (test code = 20470-0) 1.20 0-5.0 [facility] NortheastTroponin I measurement by highly sensitive enzyme dvahmycwrlj0275-95-13 09:05:00* Test Item Value Reference Range Interpretation Comments Troponin I (test code = 75085-7) 0.034 0-0.300 [facility] NortheastBlood hycerww6751-11-99 23:15:00* Test Item Value Reference Range Interpretation Comments Blood Culture (test code = 52046164) NO GROWTH AFTER 5 DAYS, FINAL REPORT [facility] NortheastCHES SINGLE (PORTABLE)2019-08-04 23:03:00 [facility] [address] [address] Patient Name: MANJIT LUO MR #: [id number] : 1980 Age/Sex: 39/M Req #: [id number] Adm Physician: Ordered by: MARIELLE MARSH MD Report #: [id number] Location: ER Room/Bed: Procedure: [id number] DX/NERISSA ST SINGLE (PORTABLE) Exam Date: 08/04/19 Exam Time: 2209 REPORT STATUS: Signed ADDENDUM #1 Left subclavian central line in place with tip projecting over cavoatrial junction. Signed by: Dr. Dona Weslye MD on 08/04/2019 11:35 PM ORIGINAL REPORT EXAMINATION: CHEST SINGLE (PORTABLE) INDICATION: FEVER [id number] Y COMPARISON: 06/16/2019 FINDINGS: AP view TUBES and LINES: None. LUNGS: Lungs are well inflated. Mild central peribronchial cuffin g. No definite focal consolidation. PLEURA: No pleural [...] 11:05 PM Dictated By: DONA WESLEY MD 230 COPY TO: MARIELLE PERSON MD Fluoroscopic procedure less than one hour duration 2019-08-04 22:23:00* Test Item Value Reference Range Interpretation Comments Lactic Acid Level (test code = Lactic Acid Level) 1.8 mmol/L 0.5- 2.0 [facility] NortheastCT [facility]BDOMEN/PELVIS UJ6329-33-60 22:15:00 [address] [address] Patient Name: MANJIT LUO MR #: [id number] : 1980 Age/Sex: 39/M Req #: [id number] Adm Physician: Ordered by: MARIELLE MARSH MD Report #: [id number] Location: ER Room/Bed: Procedure: [id number] CT/CT ABDOMEN/PELVIS WO Exam Date: 08/04/19 Exam [...] Routine protocol was performed. IV CONTRAST: None ORA L CONTRAST: None COMPLICATIONS: None RADIATION DOSE: Total [...] bones with increased sclerosis, could be due t o renal osteodystrophy. Bilateral L5 pars defects without [...] = 5778-6) YELLOW YELLOW [facility] NortheastUrine rnuzlmr1576-20-15 22:13:00* Test Item Value Reference Range Interpretation Comments Urine Clarity (test code = 66008-9) SL CLOUDY CLEAR [facility] Hospitalpecific gravity of Urine by Test strip 2019-08-04 22:13:00* Test Item Value Reference Range Interpretation Comments Urine Specific Clark (test code = 5811-5) 1.020 1.010-1.02 5 [facility] NortheastU[facility] pH measurement by automated test hxlhz9236-88-07 22:13:00* Test Item Value Reference Range Interpretation Comments Urine pH (test code = 33769-2) 5.5 5-7 [facility] NortheastU[facility] leukocyte esterase detection by nwekweag3402-90-64 22:13:00* Test Item Value Reference Range Interpretation Comments Urine Leukocyte Esterase (test code = 5799-2) SMALL NEGATIVE [facility] NortheastUrine nitrite klpixyyru2380-00-00 22:13:00* Test Item Value Reference Range Interpretation Comments Urine Nitrite (test code = 90406-0) NEGATIVE NEGATIVE [facility] NortheastU[facility] protein measurement by test strip (mass/volume)2019-08-04 22:13:00* Test Item Value Reference Range Interpretation Comments Urine Protein (test code = 5804-0) >=300 NEGATIVE [facility] NortheastU[facility] glucose tvcmftdxe4285-62-16 22:13:00* Test Item Value Reference Range Interpretation Comments Urine Glucose (UA) (test code = 2349-9) 1+ NEGATIVE [facility] NortheastUrine ketones detection by automated test fhove5398-92-10 22:13:00* Test Item Value Reference Range Interpretation Comments Urine Ketones (test code = 45067-8) NEGATIVE NEGATIVE [facility] NortheastUrine urobilinogen measurement by test strip (mass/volume)2019-08-04 22:13:00* Test Item Value Reference Range Interpretation Comments Urine Urobilinogen (test code = 82700-3) 0.2 0.2-1 [facility] NortheastUrine total bilirubin measurement (mass/volume)2019-08-04 22:13:00* Test Item Value Reference Range Interpretation Comments Urine Bilirubin (test code = 1978-6) NEGATIVE NEGATIVE [facility] NortheastUrine erythrocytes rwvhfftur3705-99-27 22:13:00* Test Item Value Reference Range Interpretation Comments Urine Blood (test code = 59668-9) MODERATE NEGATIVE [facility] NortheastAutomated urine sediment leukocyte count by microscopy (number/high power field)2019-08-04 22:13:00* Test Item Value Reference Range Interpretation Comments Urine WBC (test code = 5821-4) >50 0-5 [facility] NortheastErythrocytes detection in urine sediment by light uuunvobgox2678-99-69 22:13:00* Test Item Value Reference Range Interpretation Comments Urine RBC (test code = 69105-3) >50 0-5 [facility] NortheastBacteria detection in urine sediment by light hjggovnvlb8800-07-75 22:13:00* Test Item Value Reference Range Interpretation Comments Urine Bacteria (test code = 02389-0) MANY NONE [facility] NortheastEpithelial cells detection in urine sediment by light mocplhgeyk0064-45-92 22:13:00* Test Item Value Reference Range Interpretation Comments Urine Epithelial Cells (test code = 28659-1) MANY NONE [facility] NortheastBacterial urine cfqxktk3573-41-90 22:13:00* Test Item Value Reference Range Interpretation Comments Urine Culture (test code = 630-4) ENTEROCOCCUS FAECALIS [facility] NortheastFluoroscopic procedure less than one hour jmudedwg7020-91-46 21:23:00* Test Item Value Reference Range Interpretation Comments Lactic Acid Level (test code = Lactic Acid Level) 1.8 0.5- 2.0 [facility] NortheastFluoroscopic procedure less than one hour mexmmoal8675-66-55 00:10:00* Test Item Value Reference Range Interpretation [...] complexity tests.Testing performed by [facility] [address] [id number] Director: Alonzo Rhodes M.D.CLIA # [id number] Hospital Northeast Capillary blood glucose measurement by glucometer (mass/volume)2019-06-22 19:22:00* Test Item Value Reference Range Interpretation Comments Bedside Glucose (test code = 07903-9) 328 70-120 Meter ID: [id number] Stone Oak Hospitalerum or plasma sodium measurement (moles/volume)2019-06-22 05:05:00* Test Item Value Reference Range Interpretation Comments Sodium Level (test code = 2951-2) 135 136-145 [facility] NortheastVenous blood ionized calcium measurement (mass/volume)2019-06-22 05:05:00* Test Item Value Reference Range Interpretation Comments Ionized Calcium (test code = 74150-8) 1.1 1.09-1.30 [facility] Hospitalerum or plasma potassium measurement (moles/volume)2019-06-22 05:05:00* Test Item Value Reference Range Interpretation Comments Potassium Level (test code = 2823-3) 4.5 3.5-5.1 [facility] Hospitaler[facility] or plasma chloride measurement (moles/volume)2019-06-22 05:05:00* Test Item Value Reference Range Interpretation Comments Chloride Level (test code = 2075-0) 100 98-107 [facility] Hospitalerum or plasma carbon dioxide, total measurement (moles/volume)2019-06-22 05:05:00* Test Item Value Reference Range Interpretation Comments Carbon Dioxide Level (test code = 2028-9) 30 22-29 [facility] Hospitalerum or plasma anion yfr4135-34-44 05:05:00* Test Item Value Reference Range Interpretation Comments Anion Gap (test code = 24084-9) 9.5 8-16 [facility]er[facility] plasma urea nitrogen measurement (mass/volume)2019-06-22 05:05:00* Test Item Value Reference Range Interpretation Comments Blood Urea Nitrogen (test code = 3094-0) 34 7-26 [facility] Hospitalerum or plasma creatinine measurement (mass/volume)2019-06-22 05:05:00* Test Item Value Reference Range Interpretation Comments Creatinine (test code = 2160-0) 4.42 0.72-1.25 [facility] Hospitalerum or plasma urea nitrogen/creatinine mass asxpj3572-79-35 05:05:00* Test Item Value Reference Range Interpretation Comments BUN/Creatinine Ratio (test code = 3097-3) 8 6-25 [facility] NortheastEstimated glomerular filtration rate (GFR) hwwgfdamgtzts6354-37-01 05:05:00* Test Item Value Reference Range Interpretation Comments Estimat Glomerular Filtration Rate (test code = 903900969) 15 >60 Ranges were taken from the National Kidney Disease Education Program and the [facility] Kidney Foundation literature.Reference ranges:60 or greater: Bobqki15-33 ( for 3 consecutive months): Chronic kidney disease 15 or less: Kidney failureMethodist Hospital NortheastGlucose lhsiucabwec6946-39-96 05:05:00* Test Item Value Reference Range Interpretation Comments Glucose Level (test code = PYE5801) 271 74-118 [facility] Hospitaler[facility] or plasma calcium measurement (mass/volume)2019-06-22 05:05:00* Test Item Value Reference Range Interpretation Comments Calcium Level (test code = 75974-9) 7.7 8.4-10.2 [facility] Hospitalerum or plasma albumin measurement (mass/volume)2019-06-22 05:05:00* Test Item Value Reference Range Interpretation Comments Albumin (test code = 1751-7) 1.6 3.5-5.0 [facility] NortheastVenous blood ionized calcium measurement (mass/volume)2019-06-22 05:05:00* Test Item Value Reference Range Interpretation Comments Ionized Calcium (test code = 22708-9) 1.1 1.09-1.30 [facility] NortheastBlood leukocytes automated count (number/volume)2019-06-20 05:10:00* Test Item Value Reference Range Interpretation Comments White Blood Count (test code = 6690-2) 3.29 4.8-10.8 [facility] NortheastBlood erythrocytes automated count (number/volume)2019-06-20 05:10:00* Test Item Value Reference Range Interpretation Comments Red Blood Count (test code = 789-8) 3.57 4.3-5.7 [facility] NortheastBlood hemoglobin measurement (moles/volume)2019-06-20 05:10:00* Test Item Value Reference Range Interpretation Comments Hemoglobin (test code = 53209-9) 9.0 14.0-18.0 [facility] NortheastAutomated blood hematocrit (volume fraction)2019-06-20 05:10:00* Test Item Value Reference Range Interpretation Comments Hematocrit (test code = 4544-3) 29.1 38.2-49.6 [facility] NortheastAutomated erythrocyte mean corpuscular bizxmw4926-76-44 05:10:00* Test Item Value Reference Range Interpretation [...] = 786-4) 30.9 31-35 [facility] NortheastRDW UgrVd-Xik7003-23-27 05:10:00* Test Item Value Reference Range Interpretation Comments Red Cell Distribution Width (test code = 83515-5) 14.9 11.7 -14.4 [facility] NortheastAutomated blood platelet count (count/volume)2019-06-20 05:10:00* Test Item Value Reference Range Interpretation Comments Platelet Count (test code = 777-3) 133 140-360 [facility] NortheastAutomated blood segmented neutrophil count as percentage of total xvwthkqiby8644-00-17 05:10:00* Test Item Value Reference Range Interpretation Comments Neutrophils (%) (Auto) (test code = 92922-9) 48.9 38.7-80.0 [facility] NortheastAutomated blood lymphocyte count as percentage ot total patmjkmvzl3871-44-10 05:10:00* Test Item Value Reference Range Interpretation Comments Lymphocytes (%) (Auto) (test code = 736-9) 31.0 18.0-39.1 [facility] NortheastAutomated blood monocyte count as percentage of total rshszmzzmx1544-96-92 05:10:00* Test Item Value Reference Range Interpretation Comments Monocytes (%) (Auto) (test code = 5905-5) 11.9 4.4-11.3 [facility] NortheastAutomated blood eosinophil count as percentage of total yibogbnwzy3276-69-89 05:10:00* Test Item Value Reference Range Interpretation Comments Eosinophils (%) (Auto) (test code = 713-8) 7.3 0.0-6.0 [facility] NortheastAutomated blood basophil count as percentage of total moslxdsdkw9487-62-26 05:10:00* Test Item Value Reference Range Interpretation Comments Basophils (%) (Auto) (test code = 706-2) 0.3 0.0-1.0 [facility] NortheastFluoroscopic procedure less than one hour jarwryuj3546-51-98 05:10:00* Test Item Value Reference Range Interpretation [...] Comments Lymphocytes # (Auto) (test code = 74923-2) 1.0 1.0-3.2 [facility] NortheastBlood monocytes automated [...] [facility] NortheastFluoroscopic procedure less than one hour tzyydzhu6824-37-16 05:10:00* Test Item Value Reference Range Interpretation Comments Absolute Immature Granulocyte (auto (shin t code = Absolute Immature Granulocyte (auto) 0.02 0-0.1 [facility] NortheastCHEST 2 POGYI2440-17-30 10:46:00 [place] [address] Patient Name: MANJIT LUO MR #: [id number] : 1980 Age/Sex: 38/M Req #: [id number] Adm Physician: ABHIJIT YODER MD Ordered by: CASTRO JALLOH MD Report #: [id number] Location: MED/SURG Room/Bed: 1151 Procedure: [id number] DX/CH EST 2 VIEWS Exam Date: Exam Time: REPORT STATUS: Signed EXAMINATION: CHEST 2 VIEW S INDICATION: Postoperative fever COMPARISON: Chest radiograph 05/25 [...] 047 COPY TO: CASTRO JALLOH MD Blood rzqajxk0409-70-91 09:50:00* Test Item Value Reference Range Interpretation Comments Blood Culture (test code = 38853342) NO GROWTH AFTER 5 DAYS, FINAL REPORT [facility] intact pararthyroid hormone measurement (mass/volume)2019-06-15 06:20:00* Test Item Value Reference Range Interpretation Comments Parathyroid Hormone (Intact) (test code = 2731-8) 313 pg/mL 15-6 5 Performed at: - Lab[address] [id number] Director: Doc Bartlett MD, Phone: [phone] Stone [facility] Hospitalerum or plasma intact pararthyroid hormone measurement (mass/volume) 2019-06-15 05:20:00* Test Item Value Reference Range Interpretation Comments Parathyroid Hormone (Intact) (test code = 2731-8) 313 15-6 5 Performed at: [address] [id number] Director: Doc Bartlett MD, Phone: [phone] Stone Oak Hospitalerum or plasma intact pararthyroid hormone measurement (mass/volume) 2019-06-15 05:20:00* Test Item Value Reference Range Interpretation Comments Parathyroid Hormone (Intact) (test code = 2731-8) 313 15-6 5 Performed at: [address] [id number] Director: Doc Bartlett MD, Phone: [phone] Stone Oak Hospitalerum or plasma magnesium measurement (mass/volume)2019-06-13 17:37:00* Test Item Value Reference Range Interpretation Comments Magnesium Level (test code = 23821-9) 1.5 1.3-2.1 [facility] plasma magnesium measurement (mass/volume)2019-06-13 17:37:00* Test Item Value Reference Range Interpretation Comments Magnesium Level (test code = 95451-4) 1.5 1.3-2.1 [facility]2019-06-13 17:09:00 [place] [address] Patient Name: MANJIT LUO MR #: [id number] : 1980 Age/Sex: 38/M Req #: [id number] Adm Physician: ABHIJIT YODER MD Ordered by: CASTRO JALLOH MD Report #: [id number] Location: MED/SURG Room/Bed: [facility] Procedure: [id number] DX/CH EST SINGLE (PORTABLE) Exam Date: 06/13/19 [...] [facility] NortheastFluoroscopic procedure less than one hour kxavbtir6543-74-85 05:30:00* Test Item Value Reference Range Interpretation Comments Aspartate Amino Transf (AST/SGOT) (test code = Aspartate Amino Transf (AST/SGOT)) 38 5-34 [facility] or plasma alanine aminotransferase measurement (enzymatic activity/volume)2019-06-13 05:30:00* Test Item Value Reference Range Interpretation Comments Alanine Aminotransferase (ALT/SGPT) (test code = 1742-6) 22 0-55 [facility] or plasma protein measurement (mass/volume)2019-06-13 05:30:00* Test Item Value Reference Range Interpretation Comments Total Protein (test code = 2885-2) 7.6 6.5-8.1 [facility]Pl[facility] globulin measurement (mass/volume) 2019-06-13 05:30:00* Test Item Value Reference Range Interpretation Comments Globulin (test code = 25874-4) 5.1 2.3-3.5 [facility] or plasma albumin/globulin mass gntkc6892-02-39 05:30:00* Test Item Value Reference Range Interpretation Comments Albumin/Globulin Ratio (test code = 1759-0) 0.5 0.8-2.0 [facility] Hospitaler[facility] or plasma alkaline phosphatase measurement (enzymatic activity/volume)2019-06-13 05:30:00* Test Item Value Reference Range Interpretation Comments Alkaline Phosphatase (test code = 6768-6) 332 40-150 [facility] NortheastMucus detection in urine sediment by light ontfmxkgvj9258-66-95 13:24:00* Test Item Value Reference Range Interpretation Comments Urine Mucus (test code = 8247-9) FEW RARE [facility] NortheastBNP Lzx-mKai6613-01-19 13:15:00* Test Item Value Reference Range Interpretation Comments B-Type Natriuretic Peptide (test code = 76637-8) 218.9 pg/mL 0-100 [facility] or plasma lipase measurement (enzymatic activity/volume)2019-06-12 13:15:00* Test Item Value Reference Range Interpretation Comments Lipase (test code = 3040-3) 14 U/L 8-78 [facility]er[facility] or plasma ethanol measurement (mass/volume)2019-06-12 13:15:00* Test Item Value Reference Range Interpretation Comments Ethyl Alcohol Level (test code = 5643-2) < 10.0 mg/dL 0.0-10.0 [facility] NortheastU[facility] color qscdvemrddtyp2302-23-95 12:24:00* Test Item Value Reference Range Interpretation Comments Urine Color (test code = 5778-6) YELLOW YELLOW [facility] kdgjctm3026-31-09 12:24:00* Test Item Value Reference Range Interpretation Comments Urine Clarity (test code = 32785-5) TURBID CLEAR [facility] Hospitalpecific gravity of Urine by Test strip 2019-06-12 12:24:00* Test Item Value Reference Range Interpretation Comments Urine Specific Clark (test code = 5811-5) 1.020 1.010-1.02 5 [facility] pH measurement by automated test aqysz5899-26-85 12:24:00* Test Item Value Reference Range Interpretation Comments Urine pH (test code = 66073-4) 6 5-7 [facility] NortheastU[facility] leukocyte esterase detection by itvlqlwl5960-33-81 12:24:00* Test Item Value Reference Range Interpretation Comments Urine Leukocyte Esterase (test code = 5799-2) 1+ NEGATIVE [facility] NortheastU[facility] nitrite daqdynswh9715-70-85 12:24:00* Test Item Value Reference Range Interpretation Comments Urine Nitrite (test code = 00640-8) NEGATIVE NEGATIVE [facility] NortheastU[facility] protein measurement by test strip (mass/volume)2019-06-12 12:24:00* Test Item Value Reference Range Interpretation Comments Urine Protein (test code = 5804-0) >=300 NEGATIVE [facility] NortheastU[facility] glucose ubwznnznz8330-86-35 12:24:00* Test Item Value Reference Range Interpretation Comments Urine Glucose (UA) (test code = 2349-9) NEGATIVE NEGATIVE [facility] NortheastUrine ketones detection by automated test ukldy3993-77-59 12:24:00* Test Item Value Reference Range Interpretation Comments Urine Ketones (test code = 36266-1) TRACE NEGATIVE [facility] NortheastU[facility] urobilinogen measurement by test strip (mass/volume)2019-06-12 12:24:00* Test Item Value Reference Range Interpretation Comments Urine Urobilinogen (test code = 73593-1) 0.2 0.2-1 [facility] NortheastU[facility] total bilirubin measurement (mass/volume)2019-06-12 12:24:00* Test Item Value Reference Range Interpretation Comments Urine Bilirubin (test code = 1978-6) NEGATIVE NEGATIVE [facility] NortheastU[facility] erythrocytes hfvimgfee3455-83-35 12:24:00* Test Item Value Reference Range Interpretation Comments Urine Blood (test code = 44737-5) 3+ NEGATIVE [facility] NortheastAutomated urine sediment leukocyte count by microscopy (number/high power field)2019-06-12 12:24:00* Test Item Value Reference Range Interpretation Comments Urine WBC (test code = 5821-4) 21-50 0-5 [facility] NortheastErythrocytes detection in urine sediment by light blqsadvksi5250-70-44 12:24:00* Test Item Value Reference Range Interpretation Comments Urine RBC (test code = 80842-7) 11-20 0-5 [facility] NortheastBacteria detection in urine sediment by light iiqicsbbkk3357-01-51 12:24:00* Test Item Value Reference Range Interpretation Comments Urine Bacteria (test code = 68264-9) MANY NONE [facility] NortheastEpithelial cells detection in urine sediment by light znsjkrwfmq9790-17-99 12:24:00* Test Item Value Reference Range Interpretation Comments Urine Epithelial Cells (test code = 04199-6) RARE NONE [facility] NortheastMucus detection in urine sediment by light ussszgatqp8371-81-52 12:24:00* Test Item Value Reference Range Interpretation Comments Urine Mucus (test code = 8247-9) FEW RARE [facility] NortheastMucus detection in urine sediment by light jnspuvbytc3089-11-41 12:24:00* Test Item Value Reference Range Interpretation Comments Urine Mucus (test code = 8247-9) FEW RARE [facility] NortheastBNP Gcn-vZny6024-85-19 12:15:00* Test Item Value Reference Range Interpretation Comments B-Type Natriuretic Peptide (test code = 73611-9) 218.9 0-100 [facility] or plasma creatine kinase measurement (enzymatic activity/volume)2019-06-12 12:15:00* Test Item Value Reference Range Interpretation Comments Creatine Kinase (test code = 2157-6) 65 30-200 [facility]er[facility] or plasma creatine kinase MB measurement (mass/volume)2019-06-12 12:15:00* Test Item Value Reference Range Interpretation Comments Creatine Kinase MB (test code = 55569-3) 3.90 0-5.0 [facility] NortheastTroponin I measurement by highly sensitive enzyme bwagrpdpagc0321-69-48 12:15:00* Test Item Value Reference Range Interpretation Comments Troponin I (test code = 44101-5) 0.053 0-0.300 [facility] or plasma lipase measurement (enzymatic activity/volume)2019-06-12 12:15:00* Test Item Value Reference Range Interpretation Comments Lipase (test code = 3040-3) 14 [facility] or plasma ethanol measurement (mass/volume)2019-06-12 12:15:00* Test Item Value Reference Range Interpretation Comments Ethyl Alcohol Level (test code = 5643-2) < 10.0 0.0-10.0 [facility] NortheastBNP Cnm-kCfe5613-36-19 12:15:00* Test Item Value Reference Range Interpretation Comments B-Type Natriuretic Peptide (test code = 23603-2) 218.9 0-100 [facility] or plasma lipase measurement (enzymatic activity/volume)2019-06-12 12:15:00* Test Item Value Reference Range Interpretation Comments Lipase (test code = 3040-3) 14 [facility]er[facility] or plasma ethanol measurement (mass/volume)2019-06-12 12:15:00* Test Item Value Reference Range Interpretation Comments Ethyl Alcohol Level (test code = 5643-2) < 10.0 0.0-10.0 [facility] NortheastCHEST SINGLE (PORTABLE)2019-06-12 12:12:00 [place] [address] Patient Name: MANJIT LUO MR #: [id number] : 1980 Age/Sex: 38/M Req #: [id number] Adm Physician: Ordered by: JONATHAN YODER DO Report #: [id number] Location: ER Room/Bed: Procedure: [id number] DX/ CHEST SINGLE (PORTABLE) Exam Date: 06/12/19 [...] PLEURA: No pleural effusion or pneumothorax . BONES AND SOFT TISSUES: No focal osseous lesion. The soft tissues are no rmal. IMPRESSION: No acute thoracic abnormality. Signed by: Dr. Arturo Humphrey M.D. on 06/12/2019 12:15 PM Dictated By: ALEXIA ROSE MD, MD 1215 [address] scribed By: TIFFANY on 06/12/19 1215 COPY TO: JONATHAN YODER DO Urine UOO6493-37-55 06:13:00* Test Item Value Reference Range Interpretation Comments Urine WBC (test code = 5821-4) >50 0-5 H [facility] WDO5713-88-72 06:13:00* Test Item Value Reference Range Interpretation Comments Urine RBC (test code = 00018-8) 11-20 0-5 H [facility] NortheastU[facility] Yieswmoe0884-57-72 06:13:00* Test Item Value Reference Range Interpretation Comments Urine Bacteria (test code = 45295-7) FEW NONE [facility] NortheastU[facility] Epithelial Clqjg9212-15-64 06:13:00 * Test Item Value Reference Range Interpretation Comments Urine Epithelial Cells (test code = 44001-3) FEW NONE [facility] NortheastU[facility] Lgrvi7664-24-71 05:56:00* Test Item Value Reference Range Interpretation Comments Urine Color (test code = 5778-6) YELLOW YELLOW [facility] NortheastUrine Xbqufmp0364-38-72 05:56:00* Test Item Value Reference Range Interpretation Comments Urine Clarity (test code = 54990-8) CLOUDY CLEAR H [facility] NortheastUrine Specific Hmwjlrv9115-81-98 05:56:00 * Test Item Value Reference Range Interpretation Comments Urine Specific Clark (test code = 5811-5) 1.025 1.010-1.02 5 [facility] NortheastU[facility] rI9421-22-52 05:56:00* Test Item Value Reference Range Interpretation Comments Urine pH (test code = 09913-8) 7 5-7 [facility] NortheastU[facility] Leukocyte Hkipovcw4730-31-73 05:56:00* Test Item Value Reference Range Interpretation Comments Urine Leukocyte Esterase (test code = 5799-2) MODERATE NEGATIVE [facility] Pdnyipx6251-28-48 05:56:00* Test Item Value Reference Range Interpretation Comments Urine Nitrite (test code = 17084-3) NEGATIVE NEGATIVE [facility] NortheastUrine Hvlqjvn9347-38-45 05:56:00* Test Item Value Reference Range Interpretation Comments Urine Protein (test code = 5804-0) >=300 NEGATIVE [facility] NortheastUrine Glucose (UA)2019-06-09 05:56:00* Test Item Value Reference Range Interpretation Comments Urine Glucose (UA) (test code = 2349-9) NEGATIVE NEGATIVE [facility] NortheastU[facility] Dsrzile9641-02-05 05:56:00* Test Item Value Reference Range Interpretation Comments Urine Ketones (test code = 43482-4) NEGATIVE NEGATIVE [facility] NortheastUrine Mhbjilnhjstj5075-56-22 05:56:00* Test Item Value Reference Range Interpretation Comments Urine Urobilinogen (test code = 85075-5) 0.2 0.2-1 [facility] NortheastU[facility] Myfikxqkb5747-14-51 05:56:00* Test Item Value Reference Range Interpretation Comments Urine Bilirubin (test code = 1978-6) NEGATIVE NEGATIVE [facility] NortheastU[facility] Emoss8885-46-22 05:56:00* Test Item Value Reference Range Interpretation Comments Urine Blood (test code = 38716-5) 2+ NEGATIVE [facility] or plasma amylase measurement (enzymatic activity/volume)2019-06-09 05:50:00* Test Item Value Reference Range Interpretation Comments Amylase Level (test code = 1798-8) 41 U/L 25-125 [facility] NortheastAmylase Nrulm7031-75-79 05:47:00* Test Item Value Reference Range Interpretation Comments Amylase Level (test code = 1798-8) 41 25-125 [facility] NortheastLipase2020-04-16 05:47:00* Test Item Value Reference Range Interpretation Comments Lipase (test code = 3040-3) 15 8-78 [facility] Hospitalodium Gndng0592-39-81 05:37:00* Test Item Value Reference Range Interpretation Comments Sodium Level (test code = 2951-2) 135 136-145 L [facility] NortheastPotassium Iewxu5245-05-35 05:37:00* Test Item Value Reference Range Interpretation Comments Potassium Level (test code = 2823-3) 5.0 3.5-5.1 [facility] NortheastChloride Jeich4078-61-74 05:37:00* Test Item Value Reference Range Interpretation Comments Chloride Level (test code = 2075-0) 107 98-107 [facility] NortheastCarbon Dioxide Pufll0252-45-95 05:37:00* Test Item Value Reference Range Interpretation Comments Carbon Dioxide Level (test code = 2028-9) 20 22-29 L [facility] NortheastAnion Mlq9337-83-93 05:37:00* Test Item Value Reference Range Interpretation Comments Anion Gap (test code = 65135-2) 13.0 8-16 [facility] NortheastBlood Urea Wkpukisj8191-01-03 05:37:00* Test Item Value Reference Range Interpretation Comments Blood Urea Nitrogen (test code = 3094-0) 55 7-26 H [facility] NortheastCreatinine2020-04-16 05:37:00* Test Item Value Reference Range Interpretation Comments Creatinine (test code = 2160-0) 5.13 0.72-1.25 H [facility] NortheastBUN/Creatinine Zuwve6211-59-18 05:37:00* Test Item Value Reference Range Interpretation Comments BUN/Creatinine Ratio (test code = 3097-3) 11 6-25 [facility] NortheastEstimat Glomerular Filtration Rate 2019-06-09 05:37:00* Test Item Value Reference Range Interpretation Comments Estimat Glomerular Filtration Rate (test code = 522412259) 13 >60 L Ranges were taken from the National Kidney Disease Education Program and the [facility] Kidney Foundation literature.Reference ranges:60 or greater: Kwjvqe48-16 ( for 3 consecutive months): Chronic kidney disease 15 or less: Kidney failureMethodist Hospital NortheastGlucose Uimaq8184-35-89 05:37:00* Test Item Value Reference Range Interpretation Comments Glucose Level (test code = WHK0088) 148 74-118 H [facility] NortheastCalcium Wefix1959-52-89 05:37:00* Test Item Value Reference Range Interpretation Comments Calcium Level (test code = 93337-5) 7.6 8.4-10.2 L [facility] NortheastTotal Zhtnndlph4083-52-31 05:37:00* Test Item Value Reference Range Interpretation [...] = 1742-6) 17 0-55 [facility] NortheastTotal Ztrqgiv6069-92-11 05:37:00* Test Item Value Reference Range Interpretation Comments Total Protein (test code = 2885-2) 8.0 6.5-8.1 [facility] NortheastAlbumin2020-04-16 05:37:00* Test Item Value Reference Range Interpretation Comments Albumin (test code = 1751-7) 2.7 3.5-5.0 L [facility] NortheastGlobulin2020-04-16 05:37:00* Test Item Value Reference Range Interpretation Comments Globulin (test code = 44526-1) 5.3 2.3-3.5 H [facility] NortheastAlbumin/Globulin Vqmio8169-22-47 05:37:00 * Test Item Value Reference Range Interpretation Comments Albumin/Globulin Ratio (test code = 1759-0) 0.5 0.8-2.0 L [facility] NortheastAlkaline Zrrxwcflbcy7145-20-58 05:37:00* Test Item Value Reference Range Interpretation Comments Alkaline Phosphatase (test code = 6768-6) 279 40-150 H [facility] NortheastABDOMEN-1VIEW (KUB)2019-06-09 05:32:00 [facility] [address] [place] [address] Patient Name: MANJIT LUO MR #: [id number] : [birth year] Age/Sex: 38/M Req #: [id number] Adm Physician: Ordered by: MARIELLE MARHS MD Report #: [id number] Location: ER Room/Bed: Procedure: [id number] DX/ABDOMEN-1VIEW [...] COPY TO: MARIELLE MARSH MD Bacterial urine pmgatjy3211-59-30 05:25:00* Test Item Value Reference Range Interpretation Comments Urine Culture (test code = 630-4) SUMIT PARAPSILOSIS [facility] NortheastWhite Blood Nviuh6139-37-70 05:08:00* Test Item Value Reference Range Interpretation Comments White Blood Count (test code = 6690-2) 6.14 4.8-10.8 [facility] NortheastRed Blood Jwndj5724-63-15 05:08:00* Test Item Value Reference Range Interpretation Comments Red Blood Count (test code = 789-8) 3.63 4.3-5.7 L [facility] NortheastHemoglobin2020-04-16 05:08:00* Test Item Value Reference Range Interpretation Comments Hemoglobin (test code = 60090-2) 9.3 14.0-18.0 L [facility] NortheastHematocrit2020-04-16 05:08:00* Test Item Value Reference Range Interpretation Comments Hematocrit (test code = 4544-3) 29.7 38.2-49.6 L [facility] NortheastMean Corpuscular Uxckvh9905-01-50 05:08:00* Test Item Value Reference Range Interpretation Comments Mean Corpuscular Volume (test code = 787-2) 81.8 81-99 [facility] NortheastMean Corpuscular Piauzeuwhy5889-85-65 05:08:00* Test Item Value Reference Range Interpretation Comments Mean Corpuscular Hemoglobin (test code = 785-6) 25.6 28-32 L [facility] NortheastMean Corpuscular Hemoglobin Concent 2019-06-09 05:08:00* Test Item Value Reference Range Interpretation Comments Mean Corpuscular Hemoglobin Concent (test code = 786-4) 31.3 31-35 [facility] NortheastRed Cell Distribution Fbxpf4778-28-16 05:08:00* Test Item Value Reference Range Interpretation Comments Red Cell Distribution Width (test code = 88789-7) 15.0 11.7 -14.4 H [facility] NortheastPlatelet Uvdjm8141-62-81 05:08:00* Test Item Value Reference Range Interpretation Comments Platelet Count (test code = 777-3) 141 140-360 [facility] NortheastNeutrophils (%) (Auto)2019-06-09 05:08:00 * Test Item Value Reference Range Interpretation Comments Neutrophils (%) (Auto) (test code = 14818-4) 68.2 38.7-80.0 [facility] NortheastLymphocytes (%) (Auto)2019-06-09 [...] Comments Lymphocytes # (Auto) (test code = 87939-7) 1.2 1.0-3.2 [facility] NortheastMonocytes # (Auto)2019-06-09 [...] Absolute Immature Granulocyte (auto) 0.13 0-0.1 H [facility] Hospitalerum or plasma amylase measurement (enzymatic activity/volume)2019-06-09 04:50:00* Test Item Value Reference Range Interpretation Comments Amylase Level (test code = 1798-8) 41 25-125 [facility] Hospitalerum or plasma amylase measurement (enzymatic activity/volume)2019-06-09 04:50:00* Test Item Value Reference Range Interpretation Comments Amylase Level (test code = 1798-8) 41 -125 [facility] NortheastBlood Jqfyvru0893-26-56 01:59:00* Test Item Value Reference Range Interpretation Comments Blood Culture (test code = 90984388) NO GROWTH AFTER 5 DAYS, FINAL REPORT [facility] Gckwddz0687-73-81 16:41:00* Test Item Value Reference Range Interpretation Comments Bedside Glucose (test code = 61094-0) 71 70-120 Meter ID: [id number] [facility] Glucose 2019-06-03 16:41:00* Test Item Value Reference Range Interpretation Comments Bedside Glucose (test code = 48117-5) 71 70-120 Meter ID: [id number] Hospital NortheastUrine Culture 2019-06-03 10:15:00* Test Item Value Reference Range Interpretation Comments Urine Culture (test code = 630-4) No Result Data Provided [facility] NortheastUrine Vdfeedl2888-70-60 10:15:00* Test Item Value Reference Range Interpretation Comments Urine Culture (test code = 630-4) No Result Data Provided [facility] NortheastIR BLWAXWW8450-57-44 15:49:00 [place] [address] Patient Name: MANJIT LUO MR #: [id number] : 1980 Age/Sex: 38/M Req #: [id number] Adm Physician: ABHIJIT YODER MD Ordered by: FAIZA DOWNEY Report #: [id number] Location: MED/SURG3 Room/Bed: [facility] Procedure: [id number] DX/IR CONSULT Exam Date: Exam Time: REPORT STATUS: Signed Procedures: 1. Tunnel ed central line placement 2. Tunneled dialysis catheter removal. History: Nd ed for long-term IV antibiotics. Modality: Sonography and fluoroscopy. Sedation: fentanyl 50 mcg was given intravenously for conscious sedation. Vital signs were monitored throughout the procedure by a nurse, and remained stable. Physician intra-service time was 30. Primary Ope rator: Gen Anthony MD. Dial Painter: None. Approach: Left internal jugular vein Estimated [...] the needle into the IVC. A 6 [place] peel-away sheath was placed. A subcutaneous tunnel was created in the left anterior chest wall by blunt dissection. A 6 [place] dual- lumen tunneled central line was brought [...] placement of a left internal jugular tunneled centr al line using sonographic and fluoroscopic guidance. Successful, unc omplicated right internal jugular tunneled dialysis catheter removal. Sig sina by: Dr. Gen Anthony MD on 06/02/2019 3:52 PM Dictated By: GEN Swan MD 51 Transcribed By : TIFFANY on 06/02/191551 COPY TO: FAIZA DOWNEY TUNNELLED CVC INSERT W/O RZRO0026-74-13 15:49:00 [place] [address] Patient Name: MANJIT LUO MR #: [id number] : 1980 Age/Sex: 38/M Req #: [id number] Adm Physician: ABHIJIT YODER MD Ordered by: ABHIJTI YODER MD Report #: [id number] Location: MED/SURG3 Room/Bed: [facility] Procedure: [id number] IR/TU NNELLED CVC INSERT W/O PORT Exam Date: Exam Time: REPORT STATUS: Signed Procedures : 1. Tunneled central line placement 2. Tunneled dialysis catheter removal. History: Need for long-term IV antibiotics. Modality: Sonography and fluoroscopy. Sedation: fentanyl 50 mcg was given intravenously for conscio us sedation. Vital signs were monitored throughout the procedure by a nurse, and remained stable. Physician intra-service time was 30. Commercial Carpet Installer: Gen Anthony MD. Dial Painter: None. Approach: Left internal jugular vein Estimated [...] inch wire was placed through the needle int o the IVC. A 6 [place] peel-away sheath was placed. A subcutaneous tunnel was created in the left anterior chest wall by blunt dissection. A 6 [place] dual- lumen tunneled central line was brought [...] placement of a left internal jugular tunneled centr al line using sonographic and fluoroscopic guidance. Successful, unc omplicated right internal jugular tunneled dialysis catheter removal. Sig sina by: Dr. Gen Anthony MD on 06/02/2019 3:52 PM Dictated By: GEN Swan MD 5404 Transcribed By : TIFFANY on 06/02/19 1552 COPY TO: ABHIJIT YODER MD GUIDANCE FOR VASCULAR EALAV7035-45-54 15:49:00 [place] [address] Patient Name: MANJIT LUO MR #: [id number] : 1980 Age/Sex: 38/M Req #: [id number] Adm Physician: ABHIJIT YODER MD Ordered by: FAIZA DOWNEY Report #: [id number] Location: MED/SURG3 Room/Bed: [facility] Procedure: [id number] US/US GUIDANCE FOR VASCULAR ACCES Exam Date: [...] remained stable. Physician intra-service time was 30. Commercial Carpet Installer: Gen Anthony MD. Dial Painter: None. Approach: Left internal jug ular vein [...] inch wire was placed through the needle int o the IVC. A 6 [place] peel-away sheath was placed. A subcutaneous tunnel was created in the left anterior chest wall by blunt dissection. A 6 [place] dual- lumen tunneled central line was brought [...] placement of a left internal jugular tunneled centr al line using sonographic and fluoroscopic guidance. Successful, unc omplicated right internal jugular tunneled dialysis catheter removal. Sig sina by: Dr. Gen Anthony MD on 06/02/2019 3:52 PM Dictated By: GEN Swan MD 51 Transcribed By : TIFFANY on 06/02/191551 COPY TO: FAIZA DOWNEY Prothrombin Brno8737-29-74 12:37:00* Test Item Value Reference Range Interpretation [...] Value INR > 5.0 [facility]Proth[facility]bin Gjfq6113-53-16 12:37:00* Test Item Value Reference Range Interpretation [...] (PT) in platelet poor plasma by coagulation ycwwt7148-71-66 12:20:00* Test Item Value Reference Range Interpretation Comments Prothrombin Time (test code = 5902-2) 15.4 11.9-14.5 [facility]INR in Platelet poor plasma by Coagulation zniqb0256-99-19 12:20:00* Test Item Value Reference Range Interpretation Comments Prothromb Time International Ratio (test code = 6301-6) 1.15 Oral Anticoagulant Therapy INR Values:1. Low Intensity Therapy 1.5 - 2.02 . Moderate Intensity Therapy 2.0 - 3.03. High Intensity Therapy(1) 2.5 - 3. 54. High Intensity Therapy(2) 3.0 - 4.05. Panic Value INR > 5.0 [facility] NortheastHepatitis B Surface Jhlumhn6904-28-97 08:56:00* Test Item Value Reference Range Interpretation Comments Hepatitis B Surface Antigen (test code = 5196-1) Negative Negat stuart Performed at: - Lab[address] [id number] Director: Doc Bartlett MD, Phone: [phone] Hospital NortheastHepatitis B Surface Grkzijw7224-48-41 08:56:00* Test Item Value Reference Range Interpretation Comments Hepatitis B Surface Antigen (test code = 5196-1) Negative Negat stuart Performed at: [address] [id number] Director: Doc Bartlett MD, Phone: [phone] Hospital NortheastBlood Uqdapia8559-31-39 01:59:00* Test Item Value Reference Range Interpretation Comments Blood Culture (test code = 81764651) NO GROWTH AFTER 72 HOURS [facility] Hospitalerum or plasma hepatitis B virus surface antigen detection by spbrtlfhfmi5872-63-30 15:15:00* Test Item Value Reference Range Interpretation Comments Hepatitis B Surface Antigen (test code = 5196-1) Negative Negat stuart Performed at: [address] [id number] Director: Doc Bartlett MD, Phone: [phone] Stone Oak Hospitalerum or plasma hepatitis B virus surface antigen detection by immunoassay 2019-06-01 14:15:00* Test Item Value Reference Range Interpretation Comments Hepatitis B Surface Antigen (test code = 5196-1) Negative Negat stuart Performed at: [address] [id number] Director: Doc Bartlett MD, Phone: [phone] Stone Oak Hospitalerum or plasma hepatitis B virus surface antigen detection by immunoassay 2019-06-01 14:15:00* Test Item Value Reference Range Interpretation Comments Hepatitis B Surface Antigen (test code = 5196-1) Negative Negat stuart Performed at: [address] [id number] Director: Doc Bartlett MD, Phone: [phone] Stone Oak Hospitalodium Uwcer6931-37-20 07:00:00* Test Item Value Reference Range Interpretation Comments Sodium Level (test code = 2951-2) 136 136-145 [facility]Potassium Ivrzj6516-86-62 07:00:00* Test Item Value Reference Range Interpretation Comments Potassium Level (test code = 2823-3) 5.2 3.5-5.1 H [facility] NortheastChloride Qemxu3458-17-79 07:00:00* Test Item Value Reference Range Interpretation Comments Chloride Level (test code = 2075-0) 109 98-107 H [facility] NortheastCarbon Dioxide Gmfpt8155-23-99 07:00:00* Test Item Value Reference Range Interpretation Comments Carbon Dioxide Level (test code = 2028-9) 20 22-29 L [facility] NortheastAnion Vom3835-25-34 07:00:00* Test Item Value Reference Range Interpretation Comments Anion Gap (test code = 81210-0) 12.2 8-16 [facility] NortheastBlood Urea Khlrfhia4174-13-66 07:00:00* Test Item Value Reference Range Interpretation Comments Blood Urea Nitrogen (test code = 3094-0) 59 7-26 H [facility] NortheastCreatinine2020-04-08 07:00:00* Test Item Value Reference Range Interpretation Comments Creatinine (test code = 2160-0) 5.91 0.72-1.25 H [facility] NortheastBUN/Creatinine Qhgtn5430-94-65 07:00:00* Test Item Value Reference Range Interpretation Comments BUN/Creatinine Ratio (test code = 3097-3) 10 6-25 [facility] NortheastEstimat Glomerular Filtration Rate 2019-06-01 07:00:00* Test Item Value Reference Range Interpretation Comments Estimat Glomerular Filtration Rate (test code = 135877485) 11 >60 L Ranges were taken from the National Kidney Disease Education Program and the [facility] literature.Reference ranges:60 or greater: Kirbbu14-25 ( for 3 consecutive months): Chronic kidney disease 15 or less: Kidney failureMethodist Hospital NortheastGlucose Logqc4828-31-93 07:00:00* Test Item Value Reference Range Interpretation Comments Glucose Level (test code = UFT0226) 130 74-118 H [facility] NortheastCalcium Xtvjg1322-86-34 07:00:00* Test Item Value Reference Range Interpretation Comments Calcium Level (test code = 47310-7) 7.2 8.4-10.2 L [facility] NortheastPhosphorus Dhbjh7071-77-65 07:00:00* Test Item Value Reference Range Interpretation Comments Phosphorus Level (test code = JDJ5414) 5.1 2.3-4.7 H [facility] NortheastMagnesium Qjwmq0084-83-02 07:00:00* Test Item Value Reference Range Interpretation Comments Magnesium Level (test code = 03239-1) 1.7 1.3-2.1 [facility] NortheastPhosphorus Brcje6840-29-27 07:00:00* Test Item Value Reference Range Interpretation Comments Phosphorus Level (test code = ZCV4887) 5.1 2.3-4.7 H [facility] Apeum6110-05-01 07:00:00* Test Item Value Reference Range Interpretation Comments Magnesium Level (test code = 00639-7) 1.7 1.3-2.1 [facility] NortheastWhite Blood Ljrtl1057-32-52 06:30:00* Test Item Value Reference Range Interpretation Comments White Blood Count (test code = 6690-2) 3.49 4.8-10.8 L [facility] NortheastRed Blood Jlonr5889-14-91 06:30:00* Test Item Value Reference Range Interpretation Comments Red Blood Count (test code = 789-8) 3.62 4.3-5.7 L [facility] NortheastHemoglobin2020-04-08 06:30:00* Test Item Value Reference Range Interpretation Comments Hemoglobin (test code = 43281-3) 9.3 14.0-18.0 L [facility] NortheastHematocrit2020-04-08 06:30:00* Test Item Value Reference Range Interpretation Comments Hematocrit (test code = 4544-3) 29.9 38.2-49.6 L [facility] NortheastMean Corpuscular Aylper8585-52-83 06:30:00* Test Item Value Reference Range Interpretation Comments Mean Corpuscular Volume (test code = 787-2) 82.6 81-99 [facility] NortheastMean Corpuscular Mfrpbsxjgk8644-21-26 06:30:00* Test Item Value Reference Range Interpretation Comments Mean Corpuscular Hemoglobin (test code = 785-6) 25.7 28-32 L [facility] NortheastMean Corpuscular Hemoglobin Concent 2019-06-01 06:30:00* Test Item Value Reference Range Interpretation Comments Mean Corpuscular Hemoglobin Concent (test code = 786-4) 31.1 31-35 [facility] NortheastRed Cell Distribution Atdxc7836-54-32 06:30:00* Test Item Value Reference Range Interpretation Comments Red Cell Distribution Width (test code = 16148-6) 15.4 11.7 -14.4 H [facility] NortheastPlatelet Nxlks0083-76-68 06:30:00* Test Item Value Reference Range Interpretation Comments Platelet Count (test code = 777-3) 118 140-360 L [facility] NortheastNeutrophils (%) (Auto)2019-06-01 06:30:00 * Test Item Value Reference Range Interpretation Comments Neutrophils (%) (Auto) (test code = 14231-7) 70.7 38.7-80.0 [facility] NortheastLymphocytes (%) (Auto)2019-06-01 [...] Comments Lymphocytes # (Auto) (test code = 75977-4) 0.5 1.0-3.2 L [facility] NortheastMonocytes # [...] Granulocyte (auto) 0.03 0-0.1 [facility] NortheastPhosphorus sxuazxgueto3821-53-07 06:00:00 * Test Item Value Reference Range Interpretation Comments Phosphorus Level (test code = TIL9125) 5.1 2.3-4.7 [facility] NortheastTotal Qpwizupxv8865-30-69 07:19:00* Test Item Value Reference Range Interpretation [...] 1742-6) 121 0-55 H [facility] NortheastTotal Cxpslta8311-62-48 07:19:00* Test Item Value Reference Range Interpretation Comments Total Protein (test code = 2885-2) 7.2 6.5-8.1 [facility] NortheastAlbumin2020-04-07 07:19:00* Test Item Value Reference Range Interpretation Comments Albumin (test code = 1751-7) 2.3 3.5-5.0 L [facility] NortheastGlobulin2020-04-07 07:19:00* Test Item Value Reference Range Interpretation Comments Globulin (test code = 50567-0) 4.9 2.3-3.5 H [facility] NortheastAlbumin/Globulin Nisug3116-31-48 07:19:00 * Test Item Value Reference Range Interpretation Comments Albumin/Globulin Ratio (test code = 1759-0) 0.5 0.8-2.0 L [facility] NortheastAlkaline Klfshhnencb5774-65-84 07:19:00* Test Item Value Reference Range Interpretation Comments Alkaline Phosphatase (test code = 6768-6) 412 40-150 H [facility] NortheastYeast detection in urine sediment by light ubdbrxlzjd7468-72-12 02:50:00* Test Item Value Reference Range Interpretation Comments Urine Yeast (test code = 60507-0) MANY NONE [facility] NortheastUrine VFR2911-01-90 02:21:00* Test Item Value Reference Range Interpretation Comments Urine WBC (test code = 5821-4) >50 0-5 H [facility] NMQ2080-73-77 02:21:00* Test Item Value Reference Range Interpretation Comments Urine RBC (test code = 92154-7) 21-50 0-5 H [facility] Iiajeahk7074-20-81 02:21:00* Test Item Value Reference Range Interpretation Comments Urine Bacteria (test code = 96489-9) MANY NONE [facility] Epithelial Ldkgh4191-87-20 02:21:00 * Test Item Value Reference Range Interpretation Comments Urine Epithelial Cells (test code = 08844-4) FEW NONE [facility] Wuisj5519-07-54 02:21:00* Test Item Value Reference Range Interpretation Comments Urine Mucus (test code = 8247-9) FEW RARE [facility] Clxgn2690-87-47 02:21:00* Test Item Value Reference Range Interpretation Comments Urine Yeast (test code = 16240-4) MANY NONE [facility] Gzola9653-54-99 02:21:00* Test Item Value Reference Range Interpretation Comments Urine Mucus (test code = 8247-9) FEW RARE H [facility] Zilit5576-23-54 02:21:00* Test Item Value Reference Range Interpretation Comments Urine Yeast (test code = 78677-6) MANY NONE [facility] Hmvuy8963-68-23 02:12:00* Test Item Value Reference Range Interpretation Comments Urine Color (test code = 5778-6) YELLOW YELLOW [facility] NortheastUrine Gyjhfjc8329-62-84 02:12:00* Test Item Value Reference Range Interpretation Comments Urine Clarity (test code = 14133-4) CLOUDY CLEAR [facility] Ptbvxoo3418-72-75 02:12:00 * Test Item Value Reference Range Interpretation Comments Urine Specific Clark (test code = 5811-5) 1.025 1.010-1.02 5 [facility] zM2994-82-83 02:12:00* Test Item Value Reference Range Interpretation Comments Urine pH (test code = 79040-7) 5.5 5-7 [facility] NortheastU[facility] Leukocyte Herzgqtg3402-60-04 02:12:00* Test Item Value Reference Range Interpretation Comments Urine Leukocyte Esterase (test code = 5799-2) 2+ NEGATIVE H [facility] NortheastUrine Sxmvgdu9383-51-63 02:12:00* Test Item Value Reference Range Interpretation Comments Urine Nitrite (test code = 54007-8) POSITIVE NEGATIVE H [facility] NortheastUrine Hwmghbt1897-54-57 02:12:00* Test Item Value Reference Range Interpretation Comments Urine Protein (test code = 5804-0) >=300 NEGATIVE [facility] NortheastU[facility] Glucose (UA)2019-05-30 02:12:00* Test Item Value Reference Range Interpretation Comments Urine Glucose (UA) (test code = 2349-9) 1+ NEGATIVE H [facility] NortheastUrine Tholmxm4606-31-14 02:12:00* Test Item Value Reference Range Interpretation Comments Urine Ketones (test code = 00230-1) NEGATIVE NEGATIVE [facility] NortheastU[facility] Cdkxmnelfqzp7811-10-55 02:12:00* Test Item Value Reference Range Interpretation Comments Urine Urobilinogen (test code = 25670-2) 0.2 0.2-1 [facility] NortheastUrine Tzldhmdgy1218-64-73 02:12:00* Test Item Value Reference Range Interpretation Comments Urine Bilirubin (test code = 1978-6) NEGATIVE NEGATIVE [facility] NortheastU[facility] Abzxv2142-11-91 02:12:00* Test Item Value Reference Range Interpretation Comments Urine Blood (test code = 04148-5) 4+ NEGATIVE H [facility] NortheastYeast detection in urine sediment by light xbvgplnmmj4839-02-90 01:50:00* Test Item Value Reference Range Interpretation Comments Urine Yeast (test code = 52614-7) MANY NONE [facility] NortheastYeast detection in urine sediment by light kzifbrdnfu1650-55-88 01:50:00* Test Item Value Reference Range Interpretation Comments Urine Yeast (test code = 19051-8) MANY NONE [facility] NortheastCHEST SINGLE (PORTABLE)2019-05-30 01:18:00 [facility] [address] [address] Patient Name: MANJIT LUO MR #: [id number] : 1980 Age/Sex: 38/M Req #: [id number] Adm Physician: Ordered by: MARIELLE MARSH MD Report #: [id number] Location: ER Room/Bed: Procedure: [id number] DX/CHEST SINGLE (PORTABLE) Exam Date: 05/30/19 Exam Time: 49 REPORT STATUS: Sign ed EXAMINATION: CHEST SINGLE (PORTABLE) COMPARISON: Chest x-ray 04/23 INDICATION: fever [id number] Y DISCUSSION: Frontal view of the [...] COPY TO: BAYRON MARSH MD Lactic Acid Puunp5272-13-44 01:08:00* Test Item Value Reference Range Interpretation Comments Lactic Acid Level (test code = Lactic Acid Level) 1.0 0.5- 2.0 [facility] Rznrn1659-78-27 01:08:00* Test Item Value Reference Range Interpretation Comments Lactic Acid Level (test code = Lactic Acid Level) 1.0 0.5- 2.0 [facility]CT ABDOMEN/PELVIS PI3632-38-06 01:06:00 [facility] [address] [address] Patient Name: MANJIT LUO MR #: [id number] : [birth year] Age/Sex: 38/M Req #: [id number] Adm Physician: Ordered by: MARIELLE MARSH MD Report #: [id number] Location: ER Room/Bed: Procedure: [id number] CT/CT ABDOMEN/PELVIS WO Exam Date: 05/30/19 Exfam m Time: 49 REPORT STATUS: Signed CT [...] FINDINGS: Bowel: Stomach: Normal. Small Bowel: Normal i n caliber with normal wall thickness. Large Bowel: [...] Colmenares MD on 05/30/2019 1:18 AM Dictated By : SANDY COLMENARES MD 7 COPY TO: KEILY MARSH MD Fluoroscopic procedure less than one hour tqdefefz7694-16-84 00:23:00* Test Item Value Reference Range Interpretation Comments Lactic Acid Level (test code = Lactic Acid Level) 1.0 0.5- 2.0 [facility]C1[facility] class 1 & 2 ibqwwpdz7666-92-79 15:06:51* Test Item Value Reference Range Interpretation Comments Case number (test code = 0297487) [id number] C1Q class 1 & 2 antibody (test code = 1254489) See emilee mckeon below for PDF Lab Report [place] [facility] Rxivfrl5576-74-74 16:03:00* Test Item Value Reference Range Interpretation Comments Bedside Glucose (test code = 54382-3) 129 70-120 H Meter ID: [id number] [address] (KUB) 2019-05-20 11:54:00 [facility] [address] [place] [address] Patient Name: MANJIT LUO MR #: [id number] : 1980 Age/Sex: 38/M Req #: [id number] Adm Physician: ABHIJIT YODER MD Ordered by: ABHIJIT YODER MD Report #: [id number] Location: MED/SURG Room/Bed: [facility] [place] Procedure: [id number] [facility] Exam Date: 05/20/19 Exam Time: 105 [...] 11:57 AM Dictated By: KIM MENDEZ MD 8435 Transcribe d By: TIFFANY on 05/20/19 1157 COPY TO: ABHIJIT YODER MD Sodium Atsmb9119-03-44 05:37:00* Test Item Value Reference Range Interpretation Comments Sodium Level (test code = 2951-2) 137 136-145 [facility]Potassium Easeo5906-77-98 05:37:00* Test Item Value Reference Range Interpretation Comments Potassium Level (test code = 2823-3) 4.7 3.5-5.1 [facility] NortheastChloride Adrsa3991-51-41 05:37:00* Test Item Value Reference Range Interpretation Comments Chloride Level (test code = 2075-0) 103 98-107 [facility] NortheastCarbon Dioxide Rfrqd8902-21-34 05:37:00* Test Item Value Reference Range Interpretation Comments Carbon Dioxide Level (test code = 2028-9) 27 22-29 [facility] NortheastAnion Yhk4263-56-28 05:37:00* Test Item Value Reference Range Interpretation Comments Anion Gap (test code = 93410-8) 11.7 8-16 [facility] NortheastBlood Urea Ligbcexc8009-76-78 05:37:00* Test Item Value Reference Range Interpretation Comments Blood Urea Nitrogen (test code = 3094-0) 23 7-26 [facility] NortheastCreatinine2020-03-26 05:37:00* Test Item Value Reference Range Interpretation Comments Creatinine (test code = 2160-0) 3.50 0.72-1.25 H [facility] NortheastBUN/Creatinine Pqcwz9047-87-86 05:37:00* Test Item Value Reference Range Interpretation Comments BUN/Creatinine Ratio (test code = 3097-3) 7 08-17 [facility] NortheastEstimat Glomerular Filtration Rate 2019-05-19 05:37:00* Test Item Value Reference Range Interpretation Comments Estimat Glomerular Filtration Rate (test code = 398286173) 20 >60 L Ranges were taken from the National Kidney Disease Education Program and the [facility] Kidney Foundation literature.Reference ranges:60 or greater: Gcpfff26-42 ( for 3 consecutive months): Chronic kidney disease 15 or less: Kidney failureCH[facility] – SunnyvaleGlucose Urkek7195-95-96 05:37:00* Test Item Value Reference Range Interpretation Comments Glucose Level (test code = DYQ2030) 130 74-118 H [facility] NortheastCalcium Jxumr7233-71-21 05:37:00* Test Item Value Reference Range Interpretation Comments Calcium Level (test code = 95085-5) 8.2 8.4-10.2 L [facility] NortheastWhite Blood Pmzce4490-20-24 09:35:00* Test Item Value Reference Range Interpretation Comments White Blood Count (test code = 6690-2) 4.21 4.8-10.8 L [facility] NortheastRed Blood Tbwnp7749-11-43 09:35:00* Test Item Value Reference Range Interpretation Comments Red Blood Count (test code = 789-8) 3.61 4.3-5.7 L [facility] NortheastHemoglobin2020-03-25 09:35:00* Test Item Value Reference Range Interpretation Comments Hemoglobin (test code = 33316-7) 9.3 14.0-18.0 L [facility] NortheastHematocrit2020-03-25 09:35:00* Test Item Value Reference Range Interpretation Comments Hematocrit (test code = 4544-3) 30.1 38.2-49.6 L [facility] NortheastMean Corpuscular Eyevib8025-07-90 09:35:00* Test Item Value Reference Range Interpretation Comments Mean Corpuscular Volume (test code = 787-2) 83.4 81-99 [facility] NortheastMean Corpuscular Gljrczlvhh8418-65-81 09:35:00* Test Item Value Reference Range Interpretation Comments Mean Corpuscular Hemoglobin (test code = 785-6) 25.8 28-32 L [facility] NortheastMean Corpuscular Hemoglobin Concent 2019-05-18 09:35:00* Test Item Value Reference Range Interpretation Comments Mean Corpuscular Hemoglobin Concent (test code = 786-4) 30.9 31-35 L [facility] NortheastRed Cell Distribution Srisn8877-42-50 09:35:00* Test Item Value Reference Range Interpretation Comments Red Cell Distribution Width (test code = 48514-8) 14.6 11.7 -14.4 H [facility] NortheastPlatelet Hdavl5500-35-04 09:35:00* Test Item Value Reference Range Interpretation Comments Platelet Count (test code = 777-3) 133 140-360 L [facility] NortheastNeutrophils (%) (Auto)2019-05-18 09:35:00 * Test Item Value Reference Range Interpretation Comments Neutrophils (%) (Auto) (test code = 94565-5) 59.3 38.7-80.0 [facility] NortheastLymphocytes (%) (Auto)2019-05-18 [...] Comments Lymphocytes # (Auto) (test code = 95751-2) 1.2 1.0-3.2 [facility] NortheastMonocytes # (Auto)2019-05-18 [...] Absolute Immature Granulocyte (auto) 0.02 0-0.1 [facility] Hospitalingle antigen wrlzw6975-56-20 09:20:50* Test Item Value Reference Range Interpretation Comments SAB interpretation (test code = 5950) Additional antib tripp information: DP1=DPB1*01:01/DPA1*02:07CC8=PLC6*05:01/DPA1*02:72NV7=CKO3*03:03/DQA1*02:01DR53= is a self-antigen SAB serum ID (test code = 5866) [id number] SAB serum collection D&T (test code = 5867) 05/03/2019 08:30 AM SAB class I antibody assignment (test code = 5870) Negative SAB cPRA class I (test code = 5868) 0 SAB class II antibody assignment (test code = 5871) DP1,DR10 ,DP5,DR53,DR51,DQ9 SAB cPRA class II (test code = 5869) 74 Case number (test code = 1859288) [id number] Single antigen beads (test code = 4604) See link below for PDF Lab Report [place] [facility]isaD[facility] InstituteEitcwyp0917-55-05 08:02:00* Test Item Value Reference Range Interpretation Comments Urine Culture (test code = 630-4) No Result Data Provided [facility]2020-03-25 08:02:00* Test Item Value Reference Range Interpretation Comments Urine Culture (test code = 630-4) No Result Data Provided [facility]2020-03-25 08:02:00* Test Item Value Reference Range Interpretation Comments Urine Culture (test code = 630-4) No Result Data Provided [address])2019-05-16 13:43:00 [facility] [address] [address] Patient Name: MANJIT LUO MR #: [id number] : [birth year] Age/Sex: 38/M Req #: [id number] Adm Physician: ABHIJIT YODER MD Ordered by: FAIZA DOWNEY Report #: [id number] Location: MED/SURG2 Room/Bed: [facility] Procedure: [id number] DX/ABDOMEN-1VIEW (KUB) Exam Date: 05/16/19 Exam Cm e: 1325 REPORT STATUS: Signed Ab dominal radiograph Clinical indications: Nausea vomiting Comparison: 2018 Impression: The bowel gas pattern is nonobstructive. Right ureteral double J stent is in place. A peritoneal dialysis catheter is in place. No ev idence of free intraperitoneal air. Signed by: Ronnie Guallpa MD on 1:45 PM Dictated By: RONNIE GAULLPA MD 1345 Transcribed By: TIFFANY on 05/16/19 134 5 COPY TO: FAIZA DOWNEY IR VXRWJBH3766-98-14 13:41:[address] [address] Patient Name: MANJIT LUO MR #: [id number] : 1980 Age/Sex: 38/M Req #: [id number] [facility] Physician: ABHIJIT YODER MD Ordered by: FAIZA DOWNEY Report #: [id number] Location: MED/SURG2 Room/Bed: [facility] [place] Procedure: [id number] DX/IR CONSULT Exam Date: Exam Time: REPORT STATUS: Signed Tunneled dialysis alonso ter insertion, 05/16/2019. History: Renal failure. Modality: Sonography and fluoroscopy. Sedation: Genny sed 1.0 mg and fentanyl 50 mcg was given intravenously for conscious sedation. Vital signs were monitored throughout the procedure by a nurse, and remained stable. Physician intra-service time was 15 its. Primar y Trauma Surgeon: Saloni. Dial Painter: None. Approach: Right internal jugular vein Estimated [...] needle into the right atrium. A 4 [place] micropuncture sheath was placed. A subcutaneous tunnel was created in the right anterior chest wall by blunt dissection. A 19 cm 14.5 [place] dialysis catheter was brought through the tunnel. [...] sonographic and fluoroscopic guidance and conscious sedation. Kayli d by: Ronnie Guallpa MD on 05/16/2019 1:43 PM Dictated By: RONNIE VERDE MD 1343 Transcr ibed By: TIFFANY on 05/16/19 1343 COPY TO: FAIZA DOWNEY US GUIDANCE FOR VASCULAR AAODP2910-13-03 13:41:[address] [address] Patient Name: MANJIT LUO MR #: [id number] : 1980 Age/Sex: 38/M Req #: [id number] Adm Physician: ABHIJIT YODER MD Ordered by: FAIZA DOWNEY Report #: [id number] Location: MED/SURG2 Room[place]Bed[place] [facility] [place] Procedure: [id number] US/US GUIDANCE FOR VASCULAR ACCES Exam Date: 05/16/19 Exam Time: 1225 REPORT STATUS: S igned Tunneled dialysis catheter insertion, 05/16/2019. History: Renal failure. Modality: Sonography and fluoroscopy. Sedation: Versed 1.0 mg and fentanyl 50 mcg was given intrave nously for conscious sedation. Vital signs were monitored throughout the proc edure by a nurse, and remained stable. Physician intra-service time was 15 its . Commercial Carpet Installer: Saloni. Dial Painter: None. Approach: Right internal jugular vein Estimated blood loss: < 5 cc. Specimen: None. Fluoroscopy Time: 0 point min. Dose (Ka,r): 0.26 mGy. Technique: Informed written consent was obtained. Discussion of risks, benefits, and alternatives were made with the patient. The patient ex pressed understanding and agreed to proceed. All elements maximal sterile bar rier technique was utilized for this procedure, including utilization of steri le scrub solution for skin prep, a large sterile sheet to cover the areas of t he patient that were not prepped, and hand [...] into t he right atrium. A 4 [place] micropuncture sheath was placed. A subcutaneous t unnel was created in the right anterior chest wall by blunt dissection. A 19 cm 14.5 [place] dialysis catheter was brought through the tunnel. [...] sonographic and fluoroscopic guidance and conscious sedation. Kayli d by: Ronnie Guallpa MD on 05/16/2019 1:43 PM Dictated By: RONNIE VERDE MD 1342 Transcr ibed By: TIFFANY on 05/16/19 1341 COPY TO: FAIZA DOWNEY TUNNELLED CVC INSERT W/O [id number] 13:41:00 [place] [address] Patient Name: MANJIT LUO MR #: [id number] : 1980 Age/Sex: 38/M Req #: [id number] [facility] Physician: ABHIJIT YODER MD Ordered by: FAIZA DOWNEY Report #: [id number] Location: MED/SURG2 Room/Bed: 2101 Procedure: [id number] IR/TUNNELLED CVC INSERT W/O PORT Exam Date: Exam T sage: REPORT STATUS: Signed Tunn eled dialysis catheter insertion, 05/16/2019. History: Renal failure. Modality: Sonography and fluoroscopy. Sedation: Versed 1.0 mg and fentanyl 50 mcg was given intravenously for conscious sedation. Vital signs were monitored throughout the procedure by a nurse, and remained stable. Physician intra-service time was 15 its. Commercial Carpet Installer: Saloni. Dial Painter: None. Approach: Right internal jugular vein Estimated [...] into t he right atrium. A 4 [place] micropuncture sheath was placed. A subcutaneous t unnel was created in the right anterior chest wall by blunt dissection. A 19 cm 14.5 [place] dialysis catheter was brought through the tunnel. [...] sonographic and fluoroscopic guidance and conscious sedation. Kayli d by: Ronnie Guallpa MD on 05/16/2019 1:43 PM Dictated By: RONNIE VERDE MD 1343 Transcr ibed By: TIFFANY on 05/16/19 1343 COPY TO: FAIZA DOWNEY Prothrombin Fgip0032-28-89 10:37:00* Test Item Value Reference Range Interpretation [...] Value INR > 5.0 [facility] Nksqcquuc3141-13-40 08:57:00* Test Item Value Reference Range Interpretation Comments Total Bilirubin (test code = 1975-2) 0.2 0.2-1.2 [facility] Kzucbmala6395-32-82 08:57:00* Test Item Value Reference Range Interpretation Comments Direct Bilirubin (test code = 20116-2) 0.1 0.0-0.5 [facility] Amino Transf (AST/SGOT) 2019-05-16 08:57:00* Test Item Value Reference Range Interpretation Comments Aspartate Amino Transf (AST/SGOT) (test code = Aspartate Amino Transf (AST/SGOT)) 40 5-34 H [facility] Aminotransferase (ALT/SGPT) 2019-05-16 08:57:00* Test Item Value Reference Range Interpretation Comments Alanine Aminotransferase (ALT/SGPT) (test code = 1742-6) 47 0-55 [facility] Wbxlbbb2327-74-21 08:57:00* Test Item Value Reference Range Interpretation Comments Total Protein (test code = 2885-2) 8.5 6.5-8.1 H [facility]Albumin2020-03-23 08:57:00* Test Item Value Reference Range Interpretation Comments Albumin (test code = 1751-7) 2.5 3.5-5.0 L [facility]Alkaline Npjjiaqtwdi4123-13-31 08:57:00* Test Item Value Reference Range Interpretation Comments Alkaline Phosphatase (test code = 6768-6) 437 40-150 H [facility] Vwlqexbal7167-29-27 08:57:00* Test Item Value Reference Range Interpretation Comments Direct Bilirubin (test code = 48015-9) 0.1 0.0-0.5 [facility] Ygxcworfh2530-47-92 08:57:00* Test Item Value Reference Range Interpretation Comments Direct Bilirubin (test code = 11483-3) 0.1 0.0-0.5 [facility] conjugated bilirubin measurement (mass/volume)2019-05-16 06:00:00* Test Item Value Reference Range Interpretation Comments Direct Bilirubin (test code = 47725-7) 0.1 mg/dL 0.0-0.5 [facility] conjugated bilirubin measurement (mass/volume)2019-05-16 05:00:00* Test Item Value Reference Range Interpretation Comments Direct Bilirubin (test code = 96216-5) 0.1 0.0-0.5 [facility] conjugated bilirubin measurement (mass/volume)2019-05-16 05:00:00* Test Item Value Reference Range Interpretation Comments Direct Bilirubin (test code = 72028-4) 0.1 0.0-0.5 [facility]Misc[facility] referral yrgq5699-51-26 12:16:23* Test Item Value Reference Range Interpretation Comments [facility] test name (test code = 2566) PTNT [facility] test result (test code = 1730) SEE NOTE Report Status: FINAL Prothrombin [id number] Mutation, B PTNT Interpretation This individual DOES NOT have the Prothrombin P26532Q mutation. Although the Prothrombin P53242H mutation is absent, the individual may have other genetic and environmental risk factors for thrombosis. Consider genetic consultation and counseling of potentially affected family members regarding laboratory testing. ADDITIONAL INFORMATION This test is a direct mutation analysis using PCR amplification, signal generation and release by cleavage of sequence specific alleles ([employer], [place], [place], [place])............... ..............................................Prothrombin D36333A Mutation, B Negative Reference Value: Negative............................................................PTNT Reviewed By DARRYL Oneil - - - - - - - - - - - - - - - - - - - - - - - - - - - - - -Laboratory Notes:This test has been modified from the bobbin trucker'sinstructions. Its performance characteristics weredetermined by [facility] in a manner consistent with CLIArequirements. This test has not been cleared or approved bythe U.S. Food and Drug Administration.+ +: PERFORMING SITE LEGEND :+ +: : [facility] :: : [address] [place] [address] :+ + IGNACIO (test code = IGNACIO) Prothrombin C98774S Mutation [facility] Test ID: PTNTSource: Whole Blood [place] [facility] Surface Antibody, Fampv7266-14-79 08:00:00* Test Item Value Reference Range Interpretation Comments Hepatitis B Surface Antibody, Quant (test code = 5194-6) <3.1 Immunity>9.9 L Status of Immunity Anti-HBs Level Inconsistent with Immunity 0.0 - 9.9Consistent with Immunity >9.9[facility] Surface Nhxybpj7302-80-15 08:00:00* Test Item Value Reference Range Interpretation Comments Hepatitis B Surface Antigen (test code = 5196-1) Negative Negat stuart GUNTER [facility] B Core IgM Dlmtewjy6285-76-71 08:00:00* Test Item Value Reference Range Interpretation Comments Hepatitis B Core IgM Antibody (test code = 99280-3) Negative Ne gative Performed at: [address] [id number] Director: Doc Bartlett MD, Phone: [phone] [facility] B Surface Antibody, Xvwqj5665-94-70 08:00:00* Test Item Value Reference Range Interpretation Comments Hepatitis B Surface Antibody, Quant (test code = 5194-6) <3.1 Immunity>9.9 L Status of Immunity Anti-HBs Level Inconsistent with Immunity 0.0 - 9.9Consistent with Immunity >9.9[facility] B Core IgM Zijgjnuq2336-18-78 08:00:00* Test Item Value Reference Range Interpretation Comments Hepatitis B Core IgM Antibody (test code = 92201-8) Negative Ne gative Performed at: [address] [id number] Director: Doc Bartlett MD, Phone: [phone] [facility] B Surface Antibody, Gpzkj1359-93-42 08:00:00* Test Item Value Reference Range Interpretation Comments Hepatitis B Surface Antibody, Quant (test code = 5194-6) <3.1 Immunity>9.9 L Status of Immunity Anti-HBs Level Inconsistent with Immunity 0.0 - 9.9Consistent with Immunity >9.9[facility] B Core IgM Kvtbectb7566-62-40 08:00:00* Test Item Value Reference Range Interpretation Comments Hepatitis B Core IgM Antibody (test code = 67424-2) Negative Ne gative Performed at: [facility] [id number] Director: Doc Bartlett MD, Phone: [phone] Stone Oak Hospitalerum hepatitis B virus surface antibody assay by radioimmunoassay (units/volume)2019-05-12 18:30:00* Test Item Value Reference Range Interpretation Comments Hepatitis B Surface Antibody, Quant (test code = 5194-6) <3. 1 m[IU]/mL Immunity>9.9 Status of Immunity Anti-HBs Level Inconsistent with Immunity 0.0 - 9.9Consistent with Immunity >9.9[facility] Mansfielderum or plasma hepatitis B virus core IgM antibody detection by vphqbasydrr1748-27-45 18:30:00* Test Item Value Reference Range Interpretation Comments Hepatitis B Core IgM Antibody (test code = 33935-9) Negative Ne gative Performed at: [facility] [id number] Director: Doc Bartlett MD, Phone: [phone] Stone Oak Hospitalerum hepatitis B virus surface antibody assay by radioimmunoassay (units/volume)2019-05-12 17:30:00* Test Item Value Reference Range Interpretation Comments Hepatitis B Surface Antibody, Quant (test code = 5194-6) <3.1 Immunity>9.9 Status of Immunity Anti-HBs Level Inconsistent with Immunity 0.0 - 9.9Consistent with Immunity >9.9[facility] Mansfielderum or plasma hepatitis B virus core IgM antibody detection by ordkxtcygcr4160-74-19 17:30:00* Test Item Value Reference Range Interpretation Comments Hepatitis B Core IgM Antibody (test code = 87298-3) Negative Ne gative Performed at: [facility] [id number] Director: Doc Bartlett MD, Phone: [phone] Stone Oak Hospitalerum hepatitis B virus surface antibody assay by radioimmunoassay (units/volume)2019-05-12 17:30:00* Test Item Value Reference Range Interpretation Comments Hepatitis B Surface Antibody, Quant (test code = 5194-6) <3.1 Immunity>9.9 Status of Immunity Anti-HBs Level Inconsistent with Immunity 0.0 - 9.9Consistent with Immunity >9.9[facility] Mansfielderum or plasma hepatitis B virus core IgM antibody detection by klhwybdafum2080-04-96 17:30:00* Test Item Value Reference Range Interpretation Comments Hepatitis B Core IgM Antibody (test code = 57343-3) Negative Ne gative Performed at: [facility] [id number] Director: Doc Bartlett MD, Phone: [phone] Hospital NortheastGlobulin2020-03-19 05:45:00* Test Item Value Reference Range Interpretation Comments Globulin (test code = 70085-7) 5.5 2.3-3.5 H [facility]Albumin/Globulin Kieoy2725-87-53 05:45:00 * Test Item Value Reference Range Interpretation Comments Albumin/Globulin Ratio (test code = 1759-0) 0.4 0.8-2.0 L [facility] NortheastBlood Gostnqd2461-59-91 19:22:00* Test Item Value Reference Range Interpretation Comments Blood Culture (test code = 11443629) NO GROWTH AFTER 5 DAYS, FINAL REPORT [facility] NortheastLow resolution full typing by SSO 2019-05-11 10:19:06* Test Item Value Reference Range Interpretation Comments Interpretation (test code = 9104851) Note: HLA typing was performed by PCR-SSO DNA based procedures.Note: The serological phenotype is an interpretation based on molecular typing data. Case number (test code = [id number]) [id number] Low resolution full typing by SSO (test code = 1359) S ee link below for PDF Lab Report [place] MbmpqhtmkVnaxpden7947-74-39 06:07:00* Test Item Value Reference Range Interpretation Comments Ferritin (test code = 2276-4) 313.92 21.81-274.66 H [facility] NortheastFerritin2020-03-18 06:07:00* Test Item Value Reference Range Interpretation Comments Ferritin (test code = 2276-4) 313.92 21.81-274.66 H [facility] NortheastFerritin2020-03-18 06:07:00* Test Item Value Reference Range Interpretation Comments Ferritin (test code = 2276-4) 313.92 21.81-274.66 H [facility] NortheastPhosphorus Lahob1590-89-53 05:50:00* Test Item Value Reference Range Interpretation Comments Phosphorus Level (test code = KMC3595) 6.2 2.3-4.7 H [facility]2020-03-18 05:50:00* Test Item Value Reference Range Interpretation Comments Iron Level (test code = 2498-4) 38 65-175 L [facility] Iron Binding Aeeunffz3641-69-63 05:50:00* Test Item Value Reference Range Interpretation Comments Total Iron Binding Capacity (test code = 2500-7) 165 261-4 78 L [facility] NortheastPercent Iron Zlwtmycneg5526-28-99 05:50:00* Test Item Value Reference Range Interpretation Comments Percent Iron Saturation (test code = 2502-3) 23 15-50 [facility]Transferrin2020-03-18 05:50:00* Test Item Value Reference Range Interpretation Comments Transferrin (test code = 3034-6) 118 174-364 L [facility] Bahpj8461-45-68 05:50:00* Test Item Value Reference Range Interpretation Comments Iron Level (test code = 2498-4) 38 65-175 L [facility] Iron Binding Lfgyfbyj0385-47-07 05:50:00* Test Item Value Reference Range Interpretation Comments Total Iron Binding Capacity (test code = 2500-7) 165 261-4 78 L [facility]Percent Iron Eljeriywpq6757-72-13 05:50:00* Test Item Value Reference Range Interpretation Comments Percent Iron Saturation (test code = 2502-3) 23 15-50 [facility] NortheastTransferrin2020-03-18 05:50:00* Test Item Value Reference Range Interpretation Comments Transferrin (test code = 3034-6) 118 174-364 L [facility] NortheastIron Wnsmz1523-22-78 05:50:00* Test Item Value Reference Range Interpretation Comments Iron Level (test code = 2498-4) 38 65-175 L [facility] Iron Binding Wpbauzjj3362-00-32 05:50:00* Test Item Value Reference Range Interpretation Comments Total Iron Binding Capacity (test code = 2500-7) 165 261-4 78 L [facility]Percent Iron Hlmabalfcr8480-64-43 05:50:00* Test Item Value Reference Range Interpretation Comments Percent Iron Saturation (test code = 2502-3) 23 15-50 [facility] NortheastTransferrin2020-03-18 05:50:00* Test Item Value Reference Range Interpretation Comments Transferrin (test code = 3034-6) 118 174-364 L [facility] or plasma iron measurement (mass/volume)2019-05-11 05:50:00* Test Item Value Reference Range Interpretation Comments Iron Level (test code = 2498-4) 38 ug/dL 65-175 [facility] or plasma iron binding capacity measurement (mass/volume)2019-05-11 05:50:00* Test Item Value Reference Range Interpretation Comments Total Iron Binding Capacity (test code = 2500-7) 165 ug/dL 261-4 78 [facility] or plasma iron saturation measurement (mass fraction)2019-05-11 05:50:00* Test Item Value Reference Range Interpretation Comments Percent Iron Saturation (test code = 2502-3) 23 % 50 [facility] or plasma transferrin measurement (mass/volume)2019-05-11 05:50:00* Test Item Value Reference Range Interpretation Comments Transferrin (test code = 3034-6) 118 mg/dL 174-364 [facility] or plasma ferritin measurement (mass/volume)2019-05-11 05:50:00* Test Item Value Reference Range Interpretation Comments Ferritin (test code = 2276-4) 313.92 ng/mL 21.81-274.66 [facility] or plasma iron measurement (mass/volume)2019-05-11 04:50:00* Test Item Value Reference Range Interpretation Comments Iron Level (test code = 2498-4) 38 65-175 [facility] or plasma iron binding capacity measurement (mass/volume)2019-05-11 04:50:00* Test Item Value Reference Range Interpretation Comments Total Iron Binding Capacity (test code = 2500-7) 165 261-4 78 [facility] or plasma iron saturation measurement (mass fraction)2019-05-11 04:50:00* Test Item Value Reference Range Interpretation Comments Percent Iron Saturation (test code = 2502-3) 23 50 [facility] or plasma transferrin measurement (mass/volume)2019-05-11 04:50:00* Test Item Value Reference Range Interpretation Comments Transferrin (test code = 3034-6) 118 174-364 [facility] or plasma ferritin measurement (mass/volume)2019-05-11 04:50:00* Test Item Value Reference Range Interpretation Comments Ferritin (test code = 2276-4) 313.92 21.81-274.66 [facility] or plasma iron measurement (mass/volume)2019-05-11 04:50:00* Test Item Value Reference Range Interpretation Comments Iron Level (test code = 2498-4) 38 65-175 [facility] plasma iron binding capacity measurement (mass/volume)2019-05-11 04:50:00* Test Item Value Reference Range Interpretation Comments Total Iron Binding Capacity (test code = 2500-7) 165 261-4 78 [facility]er[facility] or plasma iron saturation measurement (mass fraction)2019-05-11 04:50:00* Test Item Value Reference Range Interpretation Comments Percent Iron Saturation (test code = 2502-3) 23 15-50 [facility] or plasma transferrin measurement (mass/volume)2019-05-11 04:50:00* Test Item Value Reference Range Interpretation Comments Transferrin (test code = 3034-6) 118 174-364 [facility] or plasma ferritin measurement (mass/volume)2019-05-11 04:50:00* Test Item Value Reference Range Interpretation Comments Ferritin (test code = 2276-4) 313.92 21.81-274.66 [facility]Bacterial urine bsehnyi8983-91-74 15:50:00* Test Item Value Reference Range Interpretation Comments Urine Culture (test code = 630-4) YEAST SPECIES [facility] Tzuxjoj2858-59-70 07:34:00* Test Item Value Reference Range Interpretation Comments Urine Culture (test code = 630-4) No Result Data Provided [facility] NortheastHemoglobin A1c Oxxjqlo2729-52-71 20:19:00 * Test Item Value Reference Range Interpretation Comments Hemoglobin A1c Percent (test code = Hemoglobin A1c Percent) 5.2 4.0-7.0 [facility] NortheastHemoglobin A1c Nbuphkx5355-64-90 20:19:00 * Test Item Value Reference Range Interpretation Comments Hemoglobin A1c Percent (test code = Hemoglobin A1c Percent) 5.2 4.0-7.0 [facility] NortheastHemoglobin A1c Atfoyxj2299-28-22 20:19:00 * Test Item Value Reference Range Interpretation Comments Hemoglobin A1c Percent (test code = Hemoglobin A1c Percent) 5.2 4.0-7.0 [facility]Free Wbuzmspxf6210-15-72 19:42:00* Test Item Value Reference Range Interpretation Comments Free Thyroxine (test code = 3024-7) 0.79 0.8-1.8 L [facility] NortheastThyroid Stimulating Hormone (TSH) 2019-05-08 19:42:00* Test Item Value Reference Range Interpretation Comments Thyroid Stimulating Hormone (TSH) (test code = 75958-3) 1.669 0.350-4.940 [facility] Iupklxkvz5239-35-09 19:42:00* Test Item Value Reference Range Interpretation Comments Free Thyroxine (test code = 3024-7) 0.79 0.8-1.8 L [facility] NortheastThyroid Stimulating Hormone (TSH) 2019-05-08 19:42:00* Test Item Value Reference Range Interpretation Comments Thyroid Stimulating Hormone (TSH) (test code = 46427-3) 1.669 0.350-4.940 [facility] Ozpwdmnlo7284-68-32 19:42:00* Test Item Value Reference Range Interpretation Comments Free Thyroxine (test code = 3024-7) 0.79 0.8-1.8 L [facility] NortheastThyroid Stimulating Hormone (TSH) 2019-05-08 19:42:00* Test Item Value Reference Range Interpretation Comments Thyroid Stimulating Hormone (TSH) (test code = 41292-9) 1.669 0.350-4.940 [facility] NortheastFluoroscopic procedure less than one hour ohkziwza1187-88-05 19:10:00* Test Item Value Reference Range Interpretation Comments Hemoglobin A1c Percent (test code = Hemoglobin A1c Percent) 5.2 % 4.0-7.0 [facility] or plasma thyroxine (T4) free measurement (mass/volume)2019-05-08 19:10:00* Test Item Value Reference Range Interpretation Comments Free Thyroxine (test code = 3024-7) 0.79 ng/dL 0.8-1.8 [facility] NortheastFluoroscopic procedure less than one hour ypuspohx5441-87-95 18:10:00* Test Item Value Reference Range Interpretation Comments Hemoglobin A1c Percent (test code = Hemoglobin A1c Percent) 5.2 4.0-7.0 [facility] or plasma thyroxine (T4) free measurement (mass/volume)2019-05-08 18:10:00* Test Item Value Reference Range Interpretation Comments Free Thyroxine (test code = 3024-7) 0.79 0.8-1.8 [facility] or plasma thyrotropin measurement by detection limit <= 0.005 miu/l (units/volume)2019-05-08 18:10:00* Test Item Value Reference Range Interpretation Comments Thyroid Stimulating Hormone (TSH) (test code = 34913-7) 1.669 0.350-4.940 [facility] NortheastFluoroscopic procedure less than one hour rdxcudlw0984-67-95 18:10:00* Test Item Value Reference Range Interpretation Comments Hemoglobin A1c Percent (test code = Hemoglobin A1c Percent) 5.2 4.0-7.0 [facility] plasma thyroxine (T4) free measurement (mass/volume)2019-05-08 18:10:00* Test Item Value Reference Range Interpretation Comments Free Thyroxine (test code = 3024-7) 0.79 0.8-1.8 [facility] or plasma thyrotropin measurement by detection limit <= 0.005 miu/l (units/volume)2019-05-08 18:10:00* Test Item Value Reference Range Interpretation Comments Thyroid Stimulating Hormone (TSH) (test code = 48634-9) 1.669 0.350-4.940 [facility] ZJF4443-48-64 20:28:00* Test Item Value Reference Range Interpretation Comments Urine WBC (test code = 5821-4) 11-20 0-5 H [facility] GVI7928-77-51 20:28:00* Test Item Value Reference Range Interpretation Comments Urine RBC (test code = 24043-7) 6-10 0-5 H [facility] Jguzacqj8497-92-12 20:28:00* Test Item Value Reference Range Interpretation Comments Urine Bacteria (test code = 47838-5) MANY NONE H [facility] Epithelial Ghjpm0346-51-53 20:28:00 * Test Item Value Reference Range Interpretation Comments Urine Epithelial Cells (test code = 86885-2) RARE NONE [facility] Iibhd4553-03-66 20:12:00* Test Item Value Reference Range Interpretation Comments Urine Color (test code = 5778-6) YELLOW YELLOW [facility] Twzrpiu9464-54-46 20:12:00* Test Item Value Reference Range Interpretation Comments Urine Clarity (test code = 18679-6) CLOUDY CLEAR H [facility] Specific Afnhbgy0183-40-93 20:12:00 * Test Item Value Reference Range Interpretation Comments Urine Specific Clark (test code = 5811-5) 1.020 1.010-1.02 5 [facility] gL7788-80-62 20:12:00* Test Item Value Reference Range Interpretation Comments Urine pH (test code = 05391-5) 5.5 5-7 [facility] Leukocyte Fizveyoj2577-56-37 20:12:00* Test Item Value Reference Range Interpretation Comments Urine Leukocyte Esterase (test code = 5799-2) LARGE NEGATIVE [facility] Fmilhun7945-20-15 20:12:00* Test Item Value Reference Range Interpretation Comments Urine Nitrite (test code = 58712-4) POSITIVE NEGATIVE H [facility] Qihzcld5867-95-18 20:12:00* Test Item Value Reference Range Interpretation Comments Urine Protein (test code = 5804-0) >=300 NEGATIVE [facility] [facility] Glucose (UA)2019-05-06 20:12:00* Test Item Value Reference Range Interpretation Comments Urine Glucose (UA) (test code = 2349-9) 1+ NEGATIVE [facility] Gfzdhga0470-36-70 20:12:00* Test Item Value Reference Range Interpretation Comments Urine Ketones (test code = 57261-5) NEGATIVE NEGATIVE [facility] Gvnognxgpjsr9122-39-18 20:12:00* Test Item Value Reference Range Interpretation Comments Urine Urobilinogen (test code = 44570-7) 0.2 0.2-1 [facility] Grrgomzbb6796-59-88 20:12:00* Test Item Value Reference Range Interpretation Comments Urine Bilirubin (test code = 1978-6) NEGATIVE NEGATIVE [facility] Fsgee8337-53-82 20:12:00* Test Item Value Reference Range Interpretation Comments Urine Blood (test code = 59923-9) MODERATE NEGATIVE [facility] NortheastInfluenza virus A and B antigen identification by digqpvnscamgidyril6222-40-68 20:03:00* Test Item Value Reference Range Interpretation Comments Influenza Virus Types A,B Antigen (test code = 90395-8) NEGATIVE NEGATIVE [facility] detection in kwdrdg7710-86-52 20:03:00* Test Item Value Reference Range Interpretation Comments Group A Streptococcus Screen (test code = 05345-9) NEGATIVE NEG ATIVE [facility] Virus Types A,B Antigen 2019-05-06 19:44:00* Test Item Value Reference Range Interpretation Comments Influenza Virus Types A,B Antigen (test code = 19886-3) NEGATIVE NEGATIVE [facility] Virus Types A,B Antigen 2019-05-06 19:44:00* Test Item Value Reference Range Interpretation Comments Influenza Virus Types A,B Antigen (test code = 04111-8) NEGATIVE NEGATIVE [facility] Types A,B Antigen 2019-05-06 19:44:00* Test Item Value Reference Range Interpretation Comments Influenza Virus Types A,B Antigen (test code = 04861-9) NEGATIVE NEGATIVE [facility] Gzhjc5671-64-24 19:41:00* Test Item Value Reference Range Interpretation Comments Lactic Acid Level (test code = Lactic Acid Level) 0.8 0.5- 2.0 [facility] 2 UOCJK8272-06-77 19:37:00 [facility] [address] [address] Patient Name: MANJIT LUO MR #: [id number] : 1980 Age/Sex: 38/M Req #: [id number] Adm Physician: Ordered by: JC CATES SENIOR SQL DEVELOPER Report #: [id number] Location: ER Room/Bed: Procedure: [id number] DX/CHEST 2 VIEWS Exam Date: Exam Time: REPORT STATUS: Signed EXAMINATION: CHEST 2 VIEWS INDICATION: Flulike symptoms, renal pain fls COMPARISON : Chest x-ray 05/03/2018 FINDINGS: PA and lateral views TUBES an d LINES: None. LUNGS: Lungs are well inflated. [...] TO: JC CATES NP Group A Streptococcus Bauzzu7330-34-97 19:35:00* Test Item Value Reference Range Interpretation Comments Group A Streptococcus Screen (test code = 27030-9) NEGATIVE NEG ATIVE [facility]Group A Streptococcus Owszgv6616-73-31 19:35:00* Test Item Value Reference Range Interpretation Comments Group A Streptococcus Screen (test code = 15734-1) NEGATIVE NEG ATIVE [facility] A Streptococcus Swquzn7899-27-46 19:35:00* Test Item Value Reference Range Interpretation Comments Group A Streptococcus Screen (test code = 63512-3) NEGATIVE NEG ATIVE [facility]Influenza virus A and B antigen identification by flaiwiripjqdsdmarg0153-10-25 19:03:00* Test Item Value Reference Range Interpretation Comments Influenza Virus Types A,B Antigen (test code = 27236-4) NEGATIVE NEGATIVE [facility]ogenes antigen detection in ekncuc9831-88-29 19:03:00* Test Item Value Reference Range Interpretation Comments Group A Streptococcus Screen (test code = 53627-8) NEGATIVE NEG ATIVE [facility]Influ[facility] virus A and B antigen identification by xlbxewojuqufflzwdz2376-17-25 19:03:00* Test Item Value Reference Range Interpretation Comments Influenza Virus Types A,B Antigen (test code = 54253-9) NEGATIVE NEGATIVE [facility] pyogenes antigen detection in zatbqu8245-36-13 19:03:00* Test Item Value Reference Range Interpretation Comments Group A Streptococcus Screen (test code = 98984-0) NEGATIVE NEG ATIVE [facility] NortheastFunctional protein V4095-14-22 15:25:13* Test Item Value Reference Range Interpretation Comments Functional protein C (test code = 57473-6) 56 % 70-165 L Low Protein C Activity and prolonged Prothrombin time consistent with vitamin K deficiency, warfarin therapy or liver disease. Recommend repeating Protein C when PT is normal.Reviewed by Huan Keita MD, PhD. Lab Interpretation (test code = 19646-4) Abnormal [place] MethodistFunctional protein Y7325-57-99 10:14:15* Test Item Value Reference Range Interpretation Comments Functional protein S (test code = 16418-8) 91 % 74-160 Functional Protein S performed. If result is decreased Total and Free Protein S Antigen will be performed. [place] MethodistLupus anticoagulant abtih6007-62-70 09:56:20* Test Item Value Reference Range Interpretation Comments Prothrombin time (test code = 5902-2) 15.9 11.5- 14.5 sec H INR (test code = 32758-0) 1.3 Th e International Normalized Ratio (INR) is a therapeutic monitoring tool for patients who are stable on oral anticoagulant therapy. An INR of 2.0-3.0 is suggested for deep vein thrombosis/pulmonary embolism. PTT (test code = 46368-3) 34.0 23.0- 36.0 sec PTT therapeutic range for unfractionated heparin is61.0-112.0 seconds which corresponds to Anti-Xa0.3-0.7 U/ml. PTT lupus anticoagulant (test code = 98118-3) 36.1 27.0- 38 .0 sec Lupus anticoagulant [...] instructions. The performance characteristics were determined by [facility] in a manner consistent with CLIA requirements. This test has not been cleared or approved by the U.S. Food and Drug Administration. Lab Interpretation (test code = 09886-0) Abnormal [facility] H-KJLV2586-73BZAJ9167-32-47 14:35:16* Test Item Value Reference Range Interpretation [...] NOT RECOMMENDED FOR USE WITH T=SPOT.TB TEST.Performed by:[facility] Molecular Tuberculosis Laboratory [facility] ([id number])[place], [place] [id number] [place] [address] type 1/2 combined Ab, CeF9509-05-27 13:16:14* Test Item Value Reference Range Interpretation Comments HSV 1/2 combined Ab, IgM (test code = 54346-2) 0.71 <=0.89 IV INTERPRETIVE INFORMATION: Herpes Simplex [...] for more than 12 months post-infection.Performed by [facility],[address] [place], [place] [id number] inn.[employer], Trung Boyer MD, Lab. Director lAejandro MethodistCytomegalovirus Ab, WsC2139-92-16 21:16:52* Test Item Value Reference Range Interpretation Comments Cytomegalovirus Ab, IgM (test code = 8344343) Negative Negative Ale[facility] MethodistHLA autologous jowkmlfxac8788-48-41 20:52:48* Test Item Value Reference Range Interpretation Comments [facility] source (test code = 5891) Peripheral Blood AXL current serum ID (test code = 5892) [id number] [facility] serum collection D&T (test code = 5893) 05/03/2019 08:30 AM [facility] flow XM T cell result, current (test code = 5894) Negative [facility] flow XM B cell result, current (test code = 5895) Negative Case number (test code = 1294908) [id number] HLA autologous crossmatch (test code = 1090) See link below for PDF Lab Report [facility] MethodistHomocystine, mzfzlt5651-09-01 12:03:28* Test Item Value Reference Range Interpretation Comments Homocysteine (test code = 13054-7) 17.5 umol/L 0-15 H The risk for coronary vascular disease increases progressively with homocysteine concentration. A 3.4 times greater risk is associated with a homocysteine concentration of greater than 15.8 umol/L as compared to a concentration below 14.1 umol/L. Lab Interpretation (test code = 15785-8) Abnormal [place] MethodistHSV 1 & 2 glycoprotein G Ab, OjW3645-94-48 11:09:49* Test Item Value Reference Range Interpretation Comments HSV 1 glycoprotein G Ab, IgG (test code = 78225-1) Negative Neg ative Negative: No IgG antibodies to HSV1 detected. HSV 2 glycoprotein G Ab, IgG (test code = 54767-5) Negative Neg ative Negative: No IgG antibodies to HSV2 detected. [facility] MethodistCytomegalovirus Ab, NkA0539-11-10 11:09:11* Test Item Value Reference Range Interpretation Comments Cytomegalovirus Ab, IgG (test code = 29362-8) Positive Negative A Positive; IgG antibody to CMV detected which may indicateexposure to CMV infection. Lab Interpretation (test code = 57194-3) Abnormal [place] MethodistEpstein-Vee virus antibody gqap6896-82-51 11:08:37* Test Item Value Reference Range Interpretation Comments EBV Ab to viral capsid Ag, IgG (test code = 26589-0) Positive N egative A EBV Ab to viral capsid Ag, IgM (test code = 11649-6) Negative N egative EBV Ab to nuclear Ag, IgG (test code = 7883-2) Positive Negativ e A EBV Ab to early (D) Ag, IgG (test code = 32978-0) Negative Nega tive Helder-Vee virus antibody interpretation (test code = 5466) SEE C OMMENT Infection Status: Results may suggest past EBV infection. Lab Interpretation (test code = 93793-5) Abnormal [place] MethodistParathyroid drhwpgg4123-62-05 10:15:05* Test Item Value Reference Range Interpretation Comments PTH (test code = 2731-8) 507 pg/mL 15-65 H Lab Interpretation (test code = 77030-5) Abnormal [place] MethodistAntithrombin III ssaaq1061-05-74 10:06:44* Test Item Value Reference Range Interpretation Comments Antithrombin III (test code = 3174-0) 81 % 80-130 [place] MethodistABORh - ggbijdsomt9998-91-46 09:58:00* Test Item Value Reference Range Interpretation Comments ABO grouping (test code = 883-9) O Rh type (test code = 14803-6) POS [place] AvcvjshjfRdxdjbumfx6780-61-46 09:52:47* Test Item Value Reference Range Interpretation Comments Fibrinogen (test code = 75773-0) 627 mg/dL 200-450 H Lab Interpretation (test code = 41599-6) Abnormal [place] EbkdmkyfjVifoggbkpwg1996-08-67 09:41:25* Test Item Value Reference Range Interpretation Comments Cholesterol (test code = 2093-3) 86 mg/dL <200 [place] MethodistCreatinine hmmlv6063-46-21 09:41:25* Test Item Value Reference Range Interpretation Comments Creatinine (test code = 2160-0) 4.40 mg/dL 0.7-1.2 H Lab Interpretation (test code = 56895-8) Abnormal [place] VwcujqzulMMU4930-15-70 09:41:25* Test Item Value Reference Range Interpretation Comments LDH (test code = 87914-0) 235 U/L 87-225 H Lab Interpretation (test code = 84502-5) Abnormal [place] JxqslayorSazktjokvrbfj5929-26-11 09:41:25* Test Item Value Reference Range Interpretation Comments Triglycerides (test code = 2571-8) 103 mg/dL <150 [place] MethodistAmylase xnrwf8673-56-81 09:41:24* Test Item Value Reference Range Interpretation Comments Amylase (test code = 1798-8) 46 U/L 28-100 [place] MethodistGlucose rfmtq0049-09-98 09:41:24* Test Item Value Reference Range Interpretation Comments Glucose (test code = 2345-7) 146 mg/dL 65-99 H Lab Interpretation (test code = 39601-8) Abnormal [place] MethodistPhosphorus idigm3844-95-40 09:41:24* Test Item Value Reference Range Interpretation Comments Phosphorus (test code = 2777-1) 4.6 mg/dL 2.4-4.5 H Lab Interpretation (test code = 61872-2) Abnormal [place] MethodistCT Abdomen Pelvis Wo Haqxmcjx8022-17-63 09:37:13Hm Interface, Radiology Results 05/03/2019 9:40 AM [...] inguinal lymph nodes, nonspecific though may be reactive.[id number] [place] MethodistXR Chest 2 Du4065-90-44 09:36:57Hm Interface, Radiology Results - 05/03/2019 9:40 [...] present.Visualized skeletal structures demonstrate no definite abnormality.Negative examination.HMH-1GC64441ZKMgkvefu MethodistHGB XFB7981-62-44 16:24:00* Test Item Value Reference Range Interpretation Comments HEMOGLOBIN (test code = HGB) 8.1 gm/dL 13.0-17.0 L HEMATOCRIT (test code = HCT) 25.8 % 36.0-48.0 L JRGKGFQN0883-19-07 16:47:00* Test Item Value Reference Range Interpretation Comments FERRITIN (test code = CHANELLE) 374 ng/mL 23.9-336.2 H HGB JHF5492-01-36 15:41:00* Test Item Value Reference Range Interpretation Comments HEMOGLOBIN (test code = HGB) 8.0 gm/dL 13.0-17.0 L HEMATOCRIT (test code = HCT) 24.8 % 36.0-48.0 LL BASIC METABOLIC XDOPR7488-56-15 18:42:00* Test Item Value Reference Range Interpretation [...] code = CA) 6.3 mg/dl 8.0-10.5 L GMGEVJQJJTP2403-65-08 18:42:00* Test Item Value Reference Range Interpretation Comments PHOSPHOROUS (test code = PHOS) 6.1 mg/dl 2.5-4.9 H URIC ZJBK1811-57-55 18:42:00* Test Item Value Reference Range Interpretation Comments URIC ACID (test code = URIC) 8.7 mg/dl 2.6-7.2 H GLODKQUEO6786-33-45 18:42:00* Test Item Value Reference Range Interpretation [...] = FESAT) 19 % 15-50 N URINALYSIS RUNGUGVA3448-11-98 17:35:00* Test Item Value Reference Range Interpretation [...] code = BACU) MOD NONE UR PROTEIN/CREATININE OHOPN7092-19-75 17:35:00* Test Item Value Reference Range Interpretation Comments UR PROTEIN RESULT (test code = PROTU) 421.0 MG/DL 0-15.0 H UR CREATININE RESULT (test code = CREATU) 72.88 MG/DL 30-125 N PROTEIN/CREATININE RATIO (test code = P/CRATIO) 5.0 mg/g cre 0-200 N CBC W/AUTO DGAY5076-73-06 17:25:00* Test Item Value Reference Range Interpretation [...] = BA#) 0.0 K/mm3 0.0-0.2 N URINALYSIS UBLGTGLA3155-68-30 17:24:00* Test Item Value Reference Range Interpretation [...] code = BACU) MOD NONE UR PROTEIN/CREATININE VKGLG3480-75-38 17:24:00* Test Item Value Reference Range Interpretation Comments UR PROTEIN RESULT (test code = PROTU) MG/DL 0-15.0 UR CREATININE RESULT (test code = CREATU) MG/DL 30-125 PROTEIN/CREATININE RATIO (test code = P/CRATIO) mg/g cre 0-200 URINALYSIS EKOVSVHZ4752-03-44 17:23:00* Test Item Value Reference Range Interpretation [...] (test code = BACU) NONE UR PROTEIN/CREATININE AKTJY8301-26-40 17:23:00* Test Item Value Reference Range Interpretation Comments UR PROTEIN RESULT (test code = PROTU) MG/DL 0-15.0 UR CREATININE RESULT (test code = CREATU) MG/DL 30-125 PROTEIN/CREATININE RATIO (test code = P/CRATIO) mg/g cre 0-200 Sodium Zeqqc0801-42-28 00:38:00* Test Item Value Reference Range Interpretation Comments Sodium Level (test code = 2951-2) 137 136-145 [facility] Oeajo8328-73-17 00:38:00* Test Item Value Reference Range Interpretation Comments Potassium Level (test code = 2823-3) 5.0 3.5-5.1 [facility] NortheastChloride Ptdhz6911-90-69 00:38:00* Test Item Value Reference Range Interpretation Comments Chloride Level (test code = 2075-0) 116 98-107 H [facility] NortheastCarbon Dioxide Lyvvw6170-11-35 00:38:00* Test Item Value Reference Range Interpretation Comments Carbon Dioxide Level (test code = 2028-9) 13 22-29 L [facility] NortheastAnion Mnz3011-02-51 00:38:00* Test Item Value Reference Range Interpretation Comments Anion Gap (test code = 94694-5) 13.0 8-16 [facility] NortheastBlood Urea Kitugsxt9521-78-79 00:38:00* Test Item Value Reference Range Interpretation Comments Blood Urea Nitrogen (test code = 3094-0) 42 7-26 H [facility] NortheastCreatinine2020-01-27 00:38:00* Test Item Value Reference Range Interpretation Comments Creatinine (test code = 2160-0) 4.16 0.72-1.25 H [facility] NortheastBUN/Creatinine Ifdts1917-45-76 00:38:00* Test Item Value Reference Range Interpretation Comments BUN/Creatinine Ratio (test code = 3097-3) 10 6-25 [facility] NortheastEstimat Glomerular Filtration Rate 2019-03-21 00:38:00* Test Item Value Reference Range Interpretation Comments Estimat Glomerular Filtration Rate (test code = 763347405) 16 >60 L Ranges were taken from the National Kidney Disease Education Program and the [facility] [employer] literature.Reference ranges:60 or greater: Rbiwft50-94 ( for 3 consecutive months): Chronic kidney disease 15 or less: Kidney failureMethodist Hospital NortheastGlucose Xukvt4312-11-38 00:38:00* Test Item Value Reference Range Interpretation Comments Glucose Level (test code = TMH0813) 172 74-118 H [facility] NortheastCalcium Itkfo1099-59-44 00:38:00* Test Item Value Reference Range Interpretation Comments Calcium Level (test code = 83668-1) 6.6 8.4-10.2 LL Results repeated and called to MICHAEL MONTGOMERY RN at 0037 on 03/21/19 by Wandy branch Read back and verified.[facility] NortheastWhite Blood Sboyv8979-97-12 00:36:00* Test Item Value Reference Range Interpretation Comments White Blood Count (test code = 6690-2) 5.55 4.8-10.8 [facility] NortheastRed Blood Pnmux1326-13-69 00:36:00* Test Item Value Reference Range Interpretation Comments Red Blood Count (test code = 789-8) 2.73 4.3-5.7 L [facility] NortheastHemoglobin2020-01-27 00:36:00* Test Item Value Reference Range Interpretation Comments Hemoglobin (test code = 32668-7) 7.4 14.0-18.0 L [facility] NortheastHematocrit2020-01-27 00:36:00* Test Item Value Reference Range Interpretation Comments Hematocrit (test code = 4544-3) 23.3 38.2-49.6 L [facility] NortheastMean Corpuscular Lguzua5541-80-56 00:36:00* Test Item Value Reference Range Interpretation Comments Mean Corpuscular Volume (test code = 787-2) 85.3 81-99 [facility] NortheastMean Corpuscular Ffzwwoumnc7517-18-23 00:36:00* Test Item Value Reference Range Interpretation Comments Mean Corpuscular Hemoglobin (test code = 785-6) 27.1 28-32 L [facility] NortheastMean Corpuscular Hemoglobin Concent 2019-03-21 00:36:00* Test Item Value Reference Range Interpretation Comments Mean Corpuscular Hemoglobin Concent (test code = 786-4) 31.8 31-35 [facility] NortheastRed Cell Distribution Elnuv8833-57-54 00:36:00* Test Item Value Reference Range Interpretation Comments Red Cell Distribution Width (test code = 10941-7) 14.7 11.7 -14.4 H [facility] NortheastPlatelet Ffqza3910-93-24 00:36:00* Test Item Value Reference Range Interpretation Comments Platelet Count (test code = 777-3) 187 140-360 [facility] NortheastNeutrophils (%) (Auto)2019-03-21 00:36:00 * Test Item Value Reference Range Interpretation Comments Neutrophils (%) (Auto) (test code = 85268-6) 68.1 38.7-80.0 [facility] NortheastLymphocytes (%) (Auto)2019-03-21 [...] Comments Lymphocytes # (Auto) (test code = 01235-9) 1.1 1.0-3.2 [facility] NortheastMonocytes # (Auto)2019-03-21 [...] Granulocyte (auto) 0.05 0-0.1 [facility] NortheastUrine MEZ8151-73-19 00:27:00* Test Item Value Reference Range Interpretation Comments Urine WBC (test code = 5821-4) >50 0-5 H [facility] NortheastU[facility] ZLI3133-36-59 00:27:00* Test Item Value Reference Range Interpretation Comments Urine RBC (test code = 89178-9) >50 0-5 H [facility] Krqyjfpz7460-92-85 00:27:00* Test Item Value Reference Range Interpretation Comments Urine Bacteria (test code = 16065-2) MANY NONE H [facility] NortheastU[facility] Epithelial Vuftt6162-99-02 00:27:00 * Test Item Value Reference Range Interpretation Comments Urine Epithelial Cells (test code = 82275-4) FEW NONE [facility] Hwfwm8894-27-01 00:19:00* Test Item Value Reference Range Interpretation Comments Urine Color (test code = 5778-6) REMEDIOS YELLOW H [facility] NortheastUrine Yfddrir8864-19-90 00:19:00* Test Item Value Reference Range Interpretation Comments Urine Clarity (test code = 15520-5) CLOUDY CLEAR H [facility] NortheastU[facility] Specific Cvwmlvs6652-00-85 00:16:00 * Test Item Value Reference Range Interpretation Comments Urine Specific Clark (test code = 5811-5) 1.025 1.010-1.02 5 [facility] mV2283-81-98 00:16:00* Test Item Value Reference Range Interpretation Comments Urine pH (test code = 73534-5) 6.5 5-7 [facility] Leukocyte Mbbhidxi7834-11-47 00:16:00* Test Item Value Reference Range Interpretation Comments Urine Leukocyte Esterase (test code = 5799-2) 2+ NEGATIVE H [facility] Xeysixq9942-80-15 00:16:00* Test Item Value Reference Range Interpretation Comments Urine Nitrite (test code = 21220-0) POSITIVE NEGATIVE H [facility] NortheastU[facility] Weanfap2056-46-15 00:16:00* Test Item Value Reference Range Interpretation Comments Urine Protein (test code = 5804-0) 3+ NEGATIVE H [facility] NortheastU[facility] Glucose (UA)2019-03-21 00:16:00* Test Item Value Reference Range Interpretation Comments Urine Glucose (UA) (test code = 2349-9) 1+ NEGATIVE H [facility] NortheastU[facility] Ixhwmif9216-48-86 00:16:00* Test Item Value Reference Range Interpretation Comments Urine Ketones (test code = 64529-1) NEGATIVE NEGATIVE [facility] Greobsvnjzrx4558-72-38 00:16:00* Test Item Value Reference Range Interpretation Comments Urine Urobilinogen (test code = 76757-2) 0.2 0.2-1 [facility] Luvfmjols9472-21-40 00:16:00* Test Item Value Reference Range Interpretation Comments Urine Bilirubin (test code = 1978-6) NEGATIVE NEGATIVE [facility] Ecznn3197-27-08 00:16:00* Test Item Value Reference Range Interpretation Comments Urine Blood (test code = 52511-3) 4+ NEGATIVE H [facility] Ladzqbp6608-68-29 11:47:00* Test Item Value Reference Range Interpretation Comments Bedside Glucose (test code = 70247-6) 113 70-120 Meter ID: [id number] Hospitals of [facility] Campusside Glucose 2019-02-20 11:47:00* Test Item Value Reference Range Interpretation Comments Bedside Glucose (test code = 05830-4) 113 70-120 Meter ID: [id number] Stone Oak Hospitalodium Level 2019-02-19 12:01:00* Test Item Value Reference Range Interpretation Comments Sodium Level (test code = 2951-2) 135 136-145 L [facility] NortheastPotassium Seyme9447-10-26 12:01:00* Test Item Value Reference Range Interpretation Comments Potassium Level (test code = 2823-3) 4.4 3.5-5.1 [facility] NortheastChloride Mwwlm6380-65-81 12:01:00* Test Item Value Reference Range Interpretation Comments Chloride Level (test code = 2075-0) 107 98-107 [facility] NortheastCarbon Dioxide Pioei8122-52-37 12:01:00* Test Item Value Reference Range Interpretation Comments Carbon Dioxide Level (test code = 2028-9) 22 22-29 [facility] NortheastAnion Zwy3781-21-04 12:01:00* Test Item Value Reference Range Interpretation Comments Anion Gap (test code = 07225-0) 10.4 8-16 [facility] NortheastBlood Urea Fseqohol2659-27-07 12:01:00* Test Item Value Reference Range Interpretation Comments Blood Urea Nitrogen (test code = 3094-0) 28 7-26 H [facility] NortheastCreatinine2019-12-28 12:01:00* Test Item Value Reference Range Interpretation Comments Creatinine (test code = 2160-0) 3.39 0.72-1.25 H [facility] NortheastBUN/Creatinine Hgjqd9792-64-07 12:01:00* Test Item Value Reference Range Interpretation Comments BUN/Creatinine Ratio (test code = 3097-3) 8 6-25 [facility] NortheastEstimat Glomerular Filtration Rate 2019-02-19 12:01:00* Test Item Value Reference Range Interpretation Comments Estimat Glomerular Filtration Rate (test code = 169716899) 20 >60 L Ranges were taken from the National Kidney Disease Education Program and the [facility] [employer] literature.Reference ranges:60 or greater: Rfwdsc23-61 ( for 3 consecutive months): Chronic kidney disease 15 or less: Kidney failureMethodist Hospital NortheastGlucose Mrqep1108-75-65 12:01:00* Test Item Value Reference Range Interpretation Comments Glucose Level (test code = DUR3634) 158 74-118 H [facility] NortheastCalcium Wkiij1471-46-07 12:01:00* Test Item Value Reference Range Interpretation Comments Calcium Level (test code = 43714-6) 7.2 8.4-10.2 L [facility] NortheastWhite Blood Fbtkq9767-79-88 11:43:00* Test Item Value Reference Range Interpretation Comments White Blood Count (test code = 6690-2) 3.62 4.8-10.8 L [facility] NortheastRed Blood Hjges4210-87-92 11:43:00* Test Item Value Reference Range Interpretation Comments Red Blood Count (test code = 789-8) 2.84 4.3-5.7 L [facility] NortheastHemoglobin2019-12-28 11:43:00* Test Item Value Reference Range Interpretation Comments Hemoglobin (test code = 90153-2) 7.5 14.0-18.0 [facility]ematocrit2019[facility] 11:43:00* Test Item Value Reference Range Interpretation Comments Hematocrit (test code = 4544-3) 23.2 38.2-49.6 L [facility] NortheastMean Corpuscular Ysbrnj2947-55-45 11:43:00* Test Item Value Reference Range Interpretation Comments Mean Corpuscular Volume (test code = 787-2) 81.7 81-99 [facility] Corpuscular Qsefsygjvu5521-09-13 11:43:00* Test Item Value Reference Range Interpretation Comments Mean Corpuscular Hemoglobin (test code = 785-6) 26.4 28-32 L [facility]Mean Corpuscular Hemoglobin Concent 2019-02-19 11:43:00* Test Item Value Reference Range Interpretation Comments Mean Corpuscular Hemoglobin Concent (test code = 786-4) 32.3 31-35 [facility]Red Cell Distribution Qbjwh2544-65-54 11:43:00* Test Item Value Reference Range Interpretation Comments Red Cell Distribution Width (test code = 29514-8) 15.9 11.7 -14.4 H [facility] NortheastPlatelet Foste1261-22-70 11:43:00* Test Item Value Reference Range Interpretation Comments Platelet Count (test code = 777-3) 95 140-360 L [facility] NortheastNeutrophils (%) (Auto)2019-02-19 11:43:00 * Test Item Value Reference Range Interpretation Comments Neutrophils (%) (Auto) (test code = 97116-5) 57.5 38.7-80.0 [facility]Lymphocytes (%) (Auto)2019-02-19 [...] Comments Lymphocytes # (Auto) (test code = 95007-6) 1.1 1.0-3.2 [facility]Monocytes # (Auto)2019-02-19 [...] = Absolute Immature Granulocyte (auto) 0.04 0-0.1 [facility] Vmfrnxd4650-07-44 07:44:00* Test Item Value Reference Range Interpretation Comments Urine Culture (test code = 630-4) No Result Data Provided [facility] Zhsxusf3304-30-01 07:44:00* Test Item Value Reference Range Interpretation Comments Urine Culture (test code = 630-4) No Result Data Provided [facility] Cfeohwk5575-75-43 07:44:00* Test Item Value Reference Range Interpretation Comments Urine Culture (test code = 630-4) No Result Data Provided [facility] Fqeqbld1214-30-29 07:44:00* Test Item Value Reference Range Interpretation Comments Urine Culture (test code = 630-4) No Result Data Provided [facility] Yctnkhe1057-71-27 07:44:00* Test Item Value Reference Range Interpretation Comments Urine Culture (test code = 630-4) No Result Data Provided [facility]NE[facility] REMOVAL W/FL TYTNO1332-16-46 15:39:00 [facility] [address] [place] [address] Patient Name: MANJIT LUO MR #: [id number] : 1980 Age/Sex: 38/M Req #: [id number] [facility] Physician: CASTRO JALLOH MD Ordered by: CASTRO JALLOH MD Report #: [id number] Location: MED/SURG Room/Bed: [facility] Procedure: [id number] IR/NE PH TUBE REMOVAL W/FL RIGHT Exam Date: Exam Time: REPORT STATUS: Signed Fluoroscopi c guided removal of right nephrostomy catheter Clinical [...] Transcribed By: TIFFANY on 02/18/191540 COPY TO: CASTRO JALLOH MD Popiinqm8723-52-99 07:06:00* Test Item Value Reference Range Interpretation Comments Ferritin (test code = 2276-4) 23.96 21.81-274.66 [facility]Ferritin2019-12-27 07:06:00* Test Item Value Reference Range Interpretation Comments Ferritin (test code = 2276-4) 23.96 21.81-274.66 [facility] Izfcsmr7768-91-73 06:39:00* Test Item Value Reference Range Interpretation Comments Ionized Calcium (test code = 24834-6) 1.0 1.09-1.30 L [facility] Usijwhd6359-08-70 06:39:00* Test Item Value Reference Range Interpretation Comments Ionized Calcium (test code = 50154-9) 1.0 1.09-1.30 L [facility] Wqciijp2529-82-31 06:39:00* Test Item Value Reference Range Interpretation Comments Ionized Calcium (test code = 45404-6) 1.0 1.09-1.30 L [facility] Saxjxrq3448-64-02 06:39:00* Test Item Value Reference Range Interpretation Comments Ionized Calcium (test code = 03171-0) 1.0 1.09-1.30 L [facility] Semgjwm4466-06-60 06:39:00* Test Item Value Reference Range Interpretation Comments Ionized Calcium (test code = 72410-4) 1.0 1.09-1.30 L [facility] NortheastPhosphorus Lspmt3111-36-03 08:27:00* Test Item Value Reference Range Interpretation Comments Phosphorus Level (test code = ARM5835) 4.3 2.3-4.7 [facility] NortheastAlbumin2019-12-26 08:27:00* Test Item Value Reference Range Interpretation Comments Albumin (test code = 1751-7) 2.4 3.5-5.0 L [facility] NortheastPhosphorus Ftixy4973-07-31 08:27:00* Test Item Value Reference Range Interpretation Comments Phosphorus Level (test code = NZM8969) 4.3 2.3-4.7 [facility]Albumin2019-12-26 08:27:00* Test Item Value Reference Range Interpretation Comments Albumin (test code = 1751-7) 2.4 3.5-5.0 L [facility] NortheastUrine Gmzny4638-67-01 10:43:00* Test Item Value Reference Range Interpretation Comments Urine Color (test code = 5778-6) REMEDIOS YELLOW H [facility] NortheastUrine Ovmukry4606-12-17 10:43:00* Test Item Value Reference Range Interpretation Comments Urine Clarity (test code = 86653-2) CLOUDY CLEAR H [facility] NortheastU[facility] Specific Mdpmjtq6966-74-27 10:43:00 * Test Item Value Reference Range Interpretation Comments Urine Specific Clark (test code = 5811-5) 1.020 1.010-1.02 5 [facility] pD3045-34-95 10:43:00* Test Item Value Reference Range Interpretation Comments Urine pH (test code = 15404-4) 6.5 5-7 [facility] Leukocyte Yolbpwcv5372-40-02 10:43:00* Test Item Value Reference Range Interpretation Comments Urine Leukocyte Esterase (test code = 5799-2) MODERATE NEGATIVE [facility] Wrtynmx5519-42-88 10:43:00* Test Item Value Reference Range Interpretation Comments Urine Nitrite (test code = 71764-2) NEGATIVE NEGATIVE [facility] Sybzqsr6818-72-89 10:43:00* Test Item Value Reference Range Interpretation Comments Urine Protein (test code = 5804-0) 2+ NEGATIVE H [facility] Glucose (UA)2019-02-16 10:43:00* Test Item Value Reference Range Interpretation Comments Urine Glucose (UA) (test code = 2349-9) NEGATIVE NEGATIVE [facility] Nyjanic2633-22-95 10:43:00* Test Item Value Reference Range Interpretation Comments Urine Ketones (test code = 13523-9) NEGATIVE NEGATIVE [facility] Pcjwwbwpmpsw7788-81-65 10:43:00* Test Item Value Reference Range Interpretation Comments Urine Urobilinogen (test code = 85944-0) 0.2 0.2-1 [facility] Qtwidopng4111-90-09 10:43:00* Test Item Value Reference Range Interpretation Comments Urine Bilirubin (test code = 1978-6) SMALL NEGATIVE [facility] Phcqy2070-99-25 10:43:00* Test Item Value Reference Range Interpretation Comments Urine Blood (test code = 63900-8) NEGATIVE NEGATIVE [facility] GTO6635-79-52 10:43:00* Test Item Value Reference Range Interpretation Comments Urine WBC (test code = 5821-4) 0-5 0-5 [facility] QLS9852-61-87 10:43:00* Test Item Value Reference Range Interpretation Comments Urine RBC (test code = 60481-7) 0-5 0-5 [facility] Moljpfdg2815-18-70 10:43:00* Test Item Value Reference Range Interpretation Comments Urine Bacteria (test code = 40651-9) RARE NONE [facility] Epithelial Yzgsz0621-19-61 10:43:00 * Test Item Value Reference Range Interpretation Comments Urine Epithelial Cells (test code = 88876-0) FEW NONE [facility] NortheastBacterial urine xlfbsyr3537-34-75 09:30:00* Test Item Value Reference Range Interpretation Comments Urine Culture (test code = 630-4) STAPHYLOCOCCUS AUREUS [facility] NortheastB[facility] urine nxpfhdc3221-99-70 09:30:00* Test Item Value Reference Range Interpretation Comments Urine Culture (test code = 630-4) STAPHYLOCOCCUS AUREUS [facility] NortheastMagnesium Dkdkw3825-71-17 06:58:00* Test Item Value Reference Range Interpretation Comments Magnesium Level (test code = 03242-6) 1.3 1.3-2.1 [facility] NortheastMagnesium Josfk7118-07-74 06:58:00* Test Item Value Reference Range Interpretation Comments Magnesium Level (test code = 37116-5) 1.3 1.3-2.1 [facility]Magn[facility] Yjaag7622-57-67 06:58:00* Test Item Value Reference Range Interpretation Comments Magnesium Level (test code = 03699-9) 1.3 1.3-2.1 [facility] NortheastIR WDNGIMF9332-93-42 16:41:00 [facility] [place] [address] Patient Name: MANJIT LUO MR #: [id number] : 1980 Age/Sex: 38/M Req #: [id number] [facility] Physician: CASTRO JALLOH MD Ordered by: CASTRO JALLOH MD Report #: [id number] Location: MED/SURG Room/Bed: [facility] Procedure: [id number] DX/IR CONSULT Exam Date: Exam Time: REPORT [...] urology. PROCEDURE SUMMARY - Target organ: Unilateral [place] kidney - Image-guided placement of genitour inary [...] PM Dictated By: JOSE F FERRER MD 3996 Transc ribed By: TIFFANY on 02/15/19 7127 COPY TO: CASTRO JALLOH MD NEPHRO/URET W IMG/INJ-NEW PDE4216-63-64 16:41:00 [place] [address] Patient Name: MANJIT LUO MR #: [id number] : 1980 Age/Sex: 38/M Req #: [id number] Adm Physician: CASTRO JALLOH MD Ordered by: CASTRO JALLOH MD Report #: [id number] Location: MED/SURG Room/Bed: [facility] Procedure: [id number] IR/NE PHRO/URET W IMG/INJ-NEW ACC Exam Date: [...] renal collecting system. 2. Antegrade nephrostogram under fluoroscop y showing mild hydronephrosis and hydroureter. 3. Placement of 7Fr x 26cm i nternal nephroureteral stent. 4. Placement of 8.5Fr x 25cm external safety nep hrostomy. Plan: Nephrostomy capped. Patient knows to uncap to gravity if develops fevers, chills, increasing flank pain. Continue management per urology. PROCEDURE SUMMARY - Target organ: Unilateral [place] kidney - Image-guided pl acement of genitourinary [...] TO: BLANCA JALLOH MD US GUIDANCE FOR UBTGNZDGK2797-07-24 16:41:00 [place] [address] Patient Name: MANJTI LUO MR #: [id number] : 1980 Age/Sex: 38/M Req #: [id number] Adm Physician: CASTRO JALLOH MD Ordered by: CASTRO JALLOH MD Report #: [id number] Location: MED/SURG Room/Bed: [facility] Procedure: [id number] US/US GUIDANCE FOR PROCEDURE Exam Date: 02/15/19 Exam Cm e: 1258 REPORT STATUS: Signed [place] OCEDURE: Genitourinary catheter placement Procedural Personnel Attending [...] __ PROCEDURE SUMMARY - Target organ: Unilateral [place] kidney - Image-g uided placement of genitourinary [...] 30 Right genitourinary catheter placement Local anesthesia wa s administered. A needle was advanced into a lower pole calyx under ultrasound and fluoroscopy guidance. A wire was passed down the ureter into the bladder, the tract was serially dilated, and a ureteral stent was placed. A nephrostom y tube was then advanced over the wire [...] Fluoroscopy time (minutes): 8.2 Reference air kerma (mGy) : 76.8 Additional Details Additional description of procedure: [...] 02/15/191645 COPY TO: CASTRO CESPEDES MD Prothrombin Xwia7628-57-13 16:06:00* Test Item Value Reference Range Interpretation [...] Activated Partial Thromboplast Time (test code = 46786-5) 32.7 23.8-35.5 [facility] NortheastProthrombin Fogc8558-89-17 16:06:00* Test Item Value Reference Range Interpretation [...] Activated Partial Thromboplast Time (test code = 42052-8) 32.7 23.8-35.5 [facility] NortheastAct[facility] Partial Thromboplast Time 2019-02-15 16:06:00* Test Item Value Reference Range Interpretation Comments Activated Partial Thromboplast Time (test code = 10279-4) 32.7 23.8-35.5 [facility] NortheastAct[facility] Partial Thromboplast Time 2019-02-15 16:06:00* Test Item Value Reference Range Interpretation Comments Activated Partial Thromboplast Time (test code = 93362-6) 32.7 23.8-35.5 [facility]Act[facility] Partial Thromboplast Time 2019-02-15 16:06:00* Test Item Value Reference Range Interpretation Comments Activated Partial Thromboplast Time (test code = 71041-8) 32.7 23.8-35.5 [facility] NortheastActivated partial thromboplastin time (aPTT) in platelet poor plasma by coagulation juhyi9180-35-70 14:23:00* Test Item Value Reference Range Interpretation Comments Activated Partial Thromboplast Time (test code = 82926-5) 32.7 23.8-35.5 [facility]RE[facility] W/ZYPMN8554-78-14 18:29:00 [place] [address] Patient Name: MANJIT LUO MR #: [id number] : 1980 Age/Sex: 38/M Req #: [id number] Adm Physician: Ordered by: CASTRO JALLOH MD Report #: [id number] Location: [place] Room/Bed: Procedure: [id number] NM/RE NAL SCAN W/LASIX Exam Date: 01/14/19 Exam Time: 1400 REPORT STATUS: Signed Renal Sca n with Lasix Washout Clinical information: N18: Chronic [...] less than 15 minutes). No significant stasis o f tracer is seen within the left ureter. Right kidney: Perfusion to the rig ht kidney is prompt. 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 The kidney [...] PM Dictated By: YULY PERALTA MD 47 Transcribe d By: TIFFANY on 01/14/191847 COPY TO: CASTRO JALLOH MD ABDOMEN 2 PGIP9243-44-14 11:34:00 [place] [address] Patient Name: MANJIT LUO MR #: [id number] : 1980 Age/Sex: 38/M Req #: [id number] Adm Physician: Ordered by: LUZ MARINA CURRIE MD Report #: [id number] Location: ER Room/Bed: Procedure: [id number] 2 DX/ABDOMEN 2 VIEW Exam Date: 11/11/18 [...] LUZ MARINA CURRIE MD Differential Total Cells Rqhdgkt4223-31-07 11:23:00* Test Item Value Reference Range Interpretation Comments Differential Total Cells Counted (test code = Differen tial Total Cells Counted) 100 [facility]Neutrophils % (Manual)2018-11-11 11:23:00 * Test Item Value Reference Range Interpretation Comments Neutrophils % (Manual) (test code = 41072-3) 74 40-74 [facility] NortheastLymphocytes % (Manual)2018-11-11 [...] = 714-6) 2 0-7 [facility] NortheastPlatelet Uwwwkuky3622-49-06 11:23:00* Test Item Value Reference Range Interpretation Comments Platelet Estimate (test code = 13493-6) MODERATELY DECREASED [facility] NortheastPlatelet Morphology Dxdymqx7399-84-43 11:23:00* Test Item Value Reference Range Interpretation Comments Platelet Morphology Comment (test code = 39780-4) FEW LARGE NO PLT CLUMPSCHI [facility]aleRed Cell Morphology Comment 2018-11-11 11:23:00* Test Item [...] Comments Neutrophils % (Manual) (test code = 14784-7) 74 40-74 [facility] NortheastLymphocytes % (Manual)2018-11-11 [...] = 714-6) 2 0-7 [facility] NortheastPlatelet Jtngzjsn7475-00-94 11:23:00* Test Item Value Reference Range Interpretation Comments Platelet Estimate (test code = 08492-0) MODERATELY DECREASED [facility] NortheastPlatelet Morphology Nfnxoxp1863-01-72 11:23:00* Test Item Value Reference Range Interpretation Comments Platelet Morphology Comment (test code = 86726-3) FEW LARGE NO PLT CLUMPSMethodist Hospital NortheastRed [...] Comments Neutrophils % (Manual) (test code = 30664-2) 74 40-74 [facility] NortheastLymphocytes % (Manual)2018-11-11 [...] = 714-6) 2 0-7 [facility] NortheastPlatelet Ggyiawwz6843-09-55 11:23:00* Test Item Value Reference Range Interpretation Comments Platelet Estimate (test code = 67424-0) MODERATELY DECREASED [facility] NortheastPlatelet Morphology Pzbdwxm6506-72-52 11:23:00* Test Item Value Reference Range Interpretation Comments Platelet Morphology Comment (test code = 26712-1) FEW LARGE NO PLT CLUMPSMethodist Hospital NortheastRed [...] Comments Neutrophils % (Manual) (test code = 30113-6) 74 40-74 [facility] NortheastLymphocytes % (Manual)2018-11-11 11:23:00 * Test Item Value Reference Range Interpretation Comments Lymphocytes % (Manual) (test code = 737-7) - [facility]Monocytes % (Manual)2018-11-11 11:23:00* Test Item Value Reference Range Interpretation Comments Monocytes % (Manual) (test code = 744-3) 5 3.4-9.0 [facility]Eosinophils % (Manual)2018-11-11 11:23:00 * Test Item Value Reference Range Interpretation Comments Eosinophils % (Manual) (test code = 714-6) 2 0-7 [facility] NortheastPlatelet Sfutfmmz3276-84-66 11:23:00* Test Item Value Reference Range Interpretation Comments Platelet Estimate (test code = 37319-0) MODERATELY DECREASED [facility] NortheastPl[facility] Morphology Oerfqcs8634-84-89 11:23:00* Test Item Value Reference Range Interpretation Comments Platelet Morphology Comment (test code = 35840-9) FEW LARGE NO PLT CLUMPSMethodist Hospital NortheastRed [...] Comments Neutrophils % (Manual) (test code = 94978-6) 74 40-74 [facility] NortheastLymphocytes % (Manual)2018-11-11 11:23:00 * Test Item Value Reference Range Interpretation Comments Lymphocytes % (Manual) (test code = 737-7) [facility]Mon[facility] % (Manual)2018-11-11 11:23:00* Test Item Value Reference Range Interpretation Comments Monocytes % (Manual) (test code = 744-3) 5 3.4-9.0 [facility] NortheastEosinophils % (Manual)2018-11-11 11:23:00 * Test Item Value Reference Range Interpretation Comments Eosinophils % (Manual) (test code = 714-6) 2 0-7 [facility] NortheastPlatelet Sroazkre2334-31-87 11:23:00* Test Item Value Reference Range Interpretation Comments Platelet Estimate (test code = 41205-7) MODERATELY DECREASED [facility] NortheastPlatelet Morphology Rhhbzvo5933-56-96 11:23:00* Test Item Value Reference Range Interpretation Comments Platelet Morphology Comment (test code = 65349-8) FEW LARGE NO PLT CLUMPSMethodist Hospital NortheastRed Cell Morphology Comment 2018-11-11 11:23:00* Test Item Value Reference Range Interpretation Comments Red Cell Morphology Comment (test code = 6742-1) NORMAL [facility] NortheastDifferential Total Cells Counted 2018-11-11 11:23:00* Test Item Value Reference Range Interpretation Comments Differential Total Cells Counted (test code = Jaquiomar tiayuval Total Cells Counted) 100 [facility] NortheastNeutrophils % (Manual)2018-11-11 11:23:00 * Test Item Value Reference Range Interpretation Comments Neutrophils % (Manual) (test code = 89942-5) 74 40-74 [facility] NortheastLymphocytes % (Manual)2018-11-11 11:23:00 * Test Item Value Reference Range Interpretation Comments Lymphocytes % (Manual) (test code = 737-7) 48 [facility]Monocytes % (Manual)2018-11-11 11:23:00* Test Item Value Reference Range Interpretation Comments Monocytes % (Manual) (test code = 744-3) 5 3.4-9.0 [facility]Eosinophils % (Manual)2018-11-11 11:23:00 * Test Item Value Reference Range Interpretation Comments Eosinophils % (Manual) (test code = 714-6) 2 0-7 [facility] NortheastPlatelet Qhzmzmrc8435-26-26 11:23:00* Test Item Value Reference Range Interpretation Comments Platelet Estimate (test code = 28654-0) MODERATELY DECREASED [facility] NortheastPlatelet Morphology Stecchy6254-93-39 11:23:00* Test Item Value Reference Range Interpretation Comments Platelet Morphology Comment (test code = 08049-9) FEW LARGE NO PLT CLUMPSMethodist Hospital NortheastRed Cell Morphology Comment 2018-11-11 11:23:00* Test Item Value Reference Range Interpretation Comments Red Cell Morphology Comment (test code = 6742-1) NORMAL [facility] NortheastU[facility] YOJ6066-26-33 08:27:00* Test Item Value Reference Range Interpretation Comments Urine WBC (test code = 5821-4) 21-50 0-5 H [facility] NortheastU[facility] QPC8242-40-71 08:27:00* Test Item Value Reference Range Interpretation Comments Urine RBC (test code = 97137-1) 21-50 0-5 H [facility] NortheastU[facility] Asfodznh6807-98-82 08:27:00* Test Item Value Reference Range Interpretation Comments Urine Bacteria (test code = 68222-4) RARE NONE [facility] NortheastU[facility] Epithelial Wmcfk1182-72-88 08:27:00 * Test Item Value Reference Range Interpretation Comments Urine Epithelial Cells (test code = 55985-7) FEW NONE [facility] NortheastU[facility] Tracw2153-93-16 08:20:00* Test Item Value Reference Range Interpretation Comments Urine Color (test code = 5778-6) YELLOW YELLOW [facility] Uumbssv8664-90-14 08:20:00* Test Item Value Reference Range Interpretation Comments Urine Clarity (test code = 15414-0) SL CLOUDY CLEAR H [facility] NortheastU[facility] Specific Xuueohz9576-74-17 08:20:00 * Test Item Value Reference Range Interpretation Comments Urine Specific Clark (test code = 5811-5) 1.025 1.010-1.02 5 [facility] NortheastU[facility] zJ6745-09-49 08:20:00* Test Item Value Reference Range Interpretation Comments Urine pH (test code = 20570-6) 6 5-7 [facility] NortheastU[facility] Leukocyte Ycvusqvt7018-24-16 08:20:00* Test Item Value Reference Range Interpretation Comments Urine Leukocyte Esterase (test code = 94843-3) TRACE NEGATIV E H [facility] NortheastU[facility] Ghxzxhy3177-72-17 08:20:00* Test Item Value Reference Range Interpretation Comments Urine Nitrite (test code = 18018-7) NEGATIVE NEGATIVE [facility] Henqxcd1155-17-46 08:20:00* Test Item Value Reference Range Interpretation Comments Urine Protein (test code = 90381-9) 3+ NEGATIVE H [facility] NortheastU[facility] Glucose (UA)2018-11-11 08:20:00* Test Item Value Reference Range Interpretation Comments Urine Glucose (UA) (test code = 20479-2) 1+ NEGATIVE H [facility] NortheastU[facility] Xpeaenl2576-80-75 08:20:00* Test Item Value Reference Range Interpretation Comments Urine Ketones (test code = 50208-1) NEGATIVE NEGATIVE [facility] Imvozemlsgsi6427-97-79 08:20:00* Test Item Value Reference Range Interpretation Comments Urine Urobilinogen (test code = 46663-6) 0.2 0.2-1 [facility] Epxclovfx5138-06-20 08:20:00* Test Item Value Reference Range Interpretation Comments Urine Bilirubin (test code = 1977-8) NEGATIVE NEGATIVE [facility] Jmgrp6582-36-97 08:20:00* Test Item Value Reference Range Interpretation Comments Urine Blood (test code = 61799-0) 3+ NEGATIVE [facility] Pufsm8423-46-08 08:04:00* Test Item Value Reference Range Interpretation Comments Sodium Level (test code = 2951-2) 137 136-145 [facility] NortheastPotassium Anqcw8785-84-70 08:04:00* Test Item Value Reference Range Interpretation Comments Potassium Level (test code = 2823-3) 4.8 3.5-5.1 [facility] NortheastChloride Vpcxn0274-89-23 08:04:00* Test Item Value Reference Range Interpretation Comments Chloride Level (test code = 2075-0) 109 98-107 H [facility] NortheastCarbon Dioxide Gjzfp6569-76-50 08:04:00* Test Item Value Reference Range Interpretation Comments Carbon Dioxide Level (test code = 2028-9) 18 22-29 L [facility] NortheastAnion Ovy1844-69-93 08:04:00* Test Item Value Reference Range Interpretation Comments Anion Gap (test code = 80429-0) 14.8 8-16 [facility] NortheastBlood Urea Iorinmpb3228-62-88 08:04:00* Test Item Value Reference Range Interpretation Comments Blood Urea Nitrogen (test code = 3094-0) 35 7-26 H [facility] NortheastCreatinine2019-09-19 08:04:00* Test Item Value Reference Range Interpretation Comments Creatinine (test code = 2160-0) 3.89 0.72-1.25 H [facility] NortheastBUN/Creatinine Hgoqe2284-00-12 08:04:00* Test Item Value Reference Range Interpretation Comments BUN/Creatinine Ratio (test code = 3097-3) 9 6-25 [facility] NortheastEstimat Glomerular Filtration Rate 2018-11-11 08:04:00* Test Item Value Reference Range Interpretation Comments Estimat Glomerular Filtration Rate (test code = 650160730) 17 >60 L Ranges were taken from the National Kidney Disease Education Program and the [facility] Kidney Foundation literature.Reference ranges:60 or greater: Cgtfht66-85 ( for 3 consecutive months): Chronic kidney disease 15 or less: Kidney failureMethodist Hospital NortheastGlucose Rsdvg3586-04-05 08:04:00* Test Item Value Reference Range Interpretation Comments Glucose Level (test code = XES1021) 146 74-118 H [facility] NortheastCalcium Kozvl9501-04-58 08:04:00* Test Item Value Reference Range Interpretation Comments Calcium Level (test code = 88224-6) 9.0 8.4-10.2 [facility] Tlmyiufgx9603-37-27 08:04:00* Test Item Value Reference Range Interpretation Comments Total Bilirubin (test code = 1974-2) 0.6 0.2-1.2 [facility]artate Amino Transf (AST/SGOT) 2018-11-11 08:04:00* Test Item Value Reference Range Interpretation Comments Aspartate Amino Transf (AST/SGOT) (test code = Aspartate Amino Transf (AST/SGOT)) 14 5-34 [facility] Aminotransferase (ALT/SGPT) 2018-11-11 08:04:00* Test Item Value Reference Range Interpretation Comments Alanine Aminotransferase (ALT/SGPT) (test code = 1742-6) 9 0-55 [facility] Xjiohxy9421-44-93 08:04:00* Test Item Value Reference Range Interpretation Comments Total Protein (test code = 2885-2) 7.9 6.5-8.1 [facility]-09-[facility] 08:04:00* Test Item Value Reference Range Interpretation Comments Albumin (test code = 1751-7) 3.2 3.5-5.0 L [facility]Gl[facility]ulin2019-09-19 08:04:00* Test Item Value Reference Range Interpretation Comments Globulin (test code = 54577-1) 4.7 2.3-3.5 H [facility]Album[facility]/Globulin Iloav5767-42-39 08:04:00 * Test Item Value Reference Range Interpretation Comments Albumin/Globulin Ratio (test code = 1759-0) 0.7 0.8-2.0 L [facility]Alkaline Zdilbfexemz4096-62-01 08:04:00* Test Item Value Reference Range Interpretation Comments Alkaline Phosphatase (test code = 6768-6) 202 40-150 [facility] Xjiodpbyf4924-75-08 08:04:00* Test Item Value Reference Range Interpretation [...] = 1742-6) 9 0-55 [facility] Dukocvh5169-01-44 08:04:00* Test Item Value Reference Range Interpretation Comments Total Protein (test code = 2885-2) 7.9 6.5-8.1 [facility]2019-09-19 08:04:00* Test Item Value Reference Range Interpretation Comments Globulin (test code = 76981-3) 4.7 2.3-3.5 H [facility]Album[facility]/Globulin Wqssl4607-38-33 08:04:00 * Test Item Value Reference Range Interpretation Comments Albumin/Globulin Ratio (test code = 1759-0) 0.7 0.8-2.0 L [facility]Alkaline Oegkazxdwjk2105-22-98 08:04:00* Test Item Value Reference Range Interpretation Comments Alkaline Phosphatase (test code = 6768-6) 202 40-150 H [facility] Wqnnvgxqa6028-88-32 08:04:00* Test Item Value Reference Range Interpretation [...] = 1742-6) 9 0-55 [facility] Bjcwceb6753-57-80 08:04:00* Test Item Value Reference Range Interpretation Comments Total Protein (test code = 2885-2) 7.9 6.5-8.1 [facility]2019-09-19 08:04:00* Test Item Value Reference Range Interpretation Comments Globulin (test code = 70514-2) 4.7 2.3-3.5 H [facility]Album[facility]/Globulin Xmlll2846-44-90 08:04:00 * Test Item Value Reference Range Interpretation Comments Albumin/Globulin Ratio (test code = 1759-0) 0.7 0.8-2.0 L [facility]Al[facility]aline Rmlgjrditxg7893-69-78 08:04:00* Test Item Value Reference Range Interpretation Comments Alkaline Phosphatase (test code = 6768-6) 202 40-150 H [facility]White Blood Qijop9549-68-08 07:49:00* Test Item Value Reference Range Interpretation Comments White Blood Count (test code = 6690-2) 6.09 4.8-10.8 [facility]Red Blood Jikdu2017-89-87 07:49:00* Test Item Value Reference Range Interpretation Comments Red Blood Count (test code = 789-8) 4.56 4.3-5.7 [facility]Hemoglobin2019-09-19 07:49:00* Test Item Value Reference Range Interpretation Comments Hemoglobin (test code = 86588-5) 12.7 14.0-18.0 L [facility]Hematocrit2019-09-19 07:49:00* Test Item Value Reference Range Interpretation Comments Hematocrit (test code = 4544-3) 38.6 38.2-49.6 [facility]Mean Corpuscular Pabyyz9857-37-02 07:49:00* Test Item Value Reference Range Interpretation Comments Mean Corpuscular Volume (test code = 787-2) 84.6 81-99 [facility] Corpuscular Zmptnicsfk6206-07-95 07:49:00* Test Item Value Reference Range Interpretation Comments Mean Corpuscular Hemoglobin (test code = 785-6) 27.9 28-32 L [facility] Corpuscular Hemoglobin Concent 2018-11-11 07:49:00* Test Item Value Reference Range Interpretation Comments Mean Corpuscular Hemoglobin Concent (test code = 786-4) 32.9 31-35 [facility]Red Cell Distribution Tmcvv3559-20-05 07:49:00* Test Item Value Reference Range Interpretation Comments Red Cell Distribution Width (test code = 99278-1) 15.5 11.7 -14.4 H [facility] NortheastPlatelet Fnfln4952-97-39 07:49:00* Test Item Value Reference Range Interpretation Comments Platelet Count (test code = 777-3) 140 140-360 [facility]Neutrophils (%) (Auto)2018-11-11 07:49:00 * Test Item Value Reference Range Interpretation Comments Neutrophils (%) (Auto) (test code = 54911-3) 74.1 38.7-80.0 [facility] NortheastLymphocytes (%) (Auto)2018-11-11 [...] Comments Lymphocytes # (Auto) (test code = 59606-2) 1.1 1.0-3.2 [facility]Monocytes # (Auto)2018-11-11 [...] [facility] NortheastFluoroscopic procedure less than one hour tbxoxdyx7694-32-96 07:22:00* Test Item Value Reference Range Interpretation Comments Differential Total Cells Counted (test code = Differomar tial Total Cells Counted) 100 [facility]Manual blood neutrophils/100 leukocytes 2018-11-11 07:22:00* Test Item Value Reference Range Interpretation Comments Neutrophils % (Manual) (test code = 99128-4) 74 40-74 [facility] blood lymphocytes/100 leukocytes 2018-11-11 07:22:00* Test Item Value Reference Range Interpretation Comments Lymphocytes % (Manual) (test code = 737-7) [facility] blood monocytes/100 leukocytes 2018-11-11 07:22:00* Test Item Value Reference Range Interpretation Comments Monocytes % (Manual) (test code = 744-3) 5 3.4-9.0 [facility] blood eosinophil count as percentage of total rqguevgrdq9147-84-64 07:22:00* Test Item Value Reference Range Interpretation Comments Eosinophils % (Manual) (test code = 714-6) 2 0-7 [facility]Blood platelets count by estimate (number/volume)2018-11-11 07:22:00* Test Item Value Reference Range Interpretation Comments Platelet Estimate (test code = 84941-0) MODERATELY DECREASED [facility] NortheastPlatelet vvzyvrqkvo7201-54-25 07:22:00* Test Item Value Reference Range Interpretation Comments Platelet Morphology Comment (test code = 74478-4) FEW LARGE NO PLT CLUMPSMethodist Hospital NortheastRB laeexlyrlk7604-42-53 07:22:00* Test Item Value Reference Range Interpretation Comments Red Cell Morphology Comment (test code = 6742-1) NORMAL [facility] NortheastFluoroscopic procedure less than one hour svowreua4533-05-49 07:22:00* Test Item Value Reference Range Interpretation Comments Differential Total Cells Counted (test code = Differen tial Total Cells Counted) 100 [facility] blood neutrophils/100 leukocytes 2018-11-11 07:22:00* Test Item Value Reference Range Interpretation Comments Neutrophils % (Manual) (test code = 63013-6) 74 40-74 [facility] blood lymphocytes/100 leukocytes 2018-11-11 07:22:00* Test Item Value Reference Range Interpretation Comments Lymphocytes % (Manual) (test code = 737-7) [facility] blood monocytes/100 leukocytes 2018-11-11 07:22:00* Test Item Value Reference Range Interpretation Comments Monocytes % (Manual) (test code = 744-3) 5 3.4-[address] [facility] eosinophil count as percentage of total wagykqqnyy3700-51-07 07:22:00* Test Item Value Reference Range Interpretation Comments Eosinophils % (Manual) (test code = 714-6) 2 0-7 [facility]Blood platelets count by estimate (number/volume)2018-11-11 07:22:00* Test Item Value Reference Range Interpretation Comments Platelet Estimate (test code = 15329-1) MODERATELY DECREASED [facility] NortheastPlatelet ddwnullrwa6180-50-12 07:22:00* Test Item Value Reference Range Interpretation Comments Platelet Morphology Comment (test code = 99990-7) FEW LARGE NO PLT CLUMPSMethodist Hospital NortheastRBC idaswygwyz5844-64-01 07:22:00* Test Item Value Reference Range Interpretation Comments Red Cell Morphology Comment (test code = 6742-1) NORMAL [facility] Rduvkri3817-11-80 07:37:00* Test Item Value Reference Range Interpretation Comments Bedside Glucose (test code = 16200-1) 160 70-120 H Meter ID: [id number] Hospital NortheastBedside Glucose 2018-11-08 07:37:00* Test Item Value Reference Range Interpretation Comments Bedside Glucose (test code = 91549-2) 160 70-120 H Meter ID: [id number] Hospital NortheastDifferential Total Cells Dvwlpzl8245-13-94 06:23:00* Test Item Value Reference Range Interpretation Comments Differential Total Cells Counted (test code = Brian tiayuval Total Cells Counted) 100 [facility]Neutrophils % (Manual)2018-11-08 06:23:00 * Test Item Value Reference Range Interpretation Comments Neutrophils % (Manual) (test code = 08093-0) 71 40-74 [facility] NortheastLymphocytes % (Manual)2018-11-08 [...] = 714-6) 3 0-7 [facility] NortheastPlatelet Rhdtycjv8220-23-40 06:23:00* Test Item Value Reference Range Interpretation Comments Platelet Estimate (test code = 49858-4) MARKEDLY INCREASED [facility] NortheastPlatelet Morphology Rwvwjau4873-59-12 06:23:00* Test Item Value Reference Range Interpretation Comments Platelet Morphology Comment (test code = 51466-8) FEW LARGE [facility] NortheastRed Cell Morphology Mjhueqe6260-27-45 06:23:00* Test Item Value Reference Range Interpretation Comments Red Cell Morphology Comment (test code = 6742-1) [facility] Hhlrr6892-27-29 05:37:00* Test Item Value Reference Range Interpretation Comments Sodium Level (test code = 2951-2) 135 136-145 L [facility] NortheastPotassium Qzzmo5834-02-25 05:37:00* Test Item Value Reference Range Interpretation Comments Potassium Level (test code = 2823-3) 4.6 3.5-5.1 [facility] NortheastChloride Blfoy0053-72-26 05:37:00* Test Item Value Reference Range Interpretation Comments Chloride Level (test code = 2075-0) 106 98-107 [facility] NortheastCarbon Dioxide Jimae3435-05-38 05:37:00* Test Item Value Reference Range Interpretation Comments Carbon Dioxide Level (test code = 2028-9) 19 22-29 L [facility] NortheastAnion Qvn2988-61-02 05:37:00* Test Item Value Reference Range Interpretation Comments Anion Gap (test code = 33638-2) 14.6 8-16 [facility] NortheastBlood Urea Ujjpjyfz3126-69-82 05:37:00* Test Item Value Reference Range Interpretation Comments Blood Urea Nitrogen (test code = 3094-0) 30 7-26 H [facility] NortheastCreatinine2019-09-16 05:37:00* Test Item Value Reference Range Interpretation Comments Creatinine (test code = 2160-0) 3.35 0.72-1.25 H [facility] NortheastBUN/Creatinine Hvmjd1108-71-36 05:37:00* Test Item Value Reference Range Interpretation Comments BUN/Creatinine Ratio (test code = 3097-3) 9 6-25 [facility] NortheastEstimat Glomerular Filtration Rate 2018-11-08 05:37:00* Test Item Value Reference Range Interpretation Comments Estimat Glomerular Filtration Rate (test code = 517441672) 21 >60 L Ranges were taken from the National Kidney Disease Education Program and the [facility] Kidney Foundation literature.Reference ranges:60 or greater: Qroeep40-31 ( for 3 consecutive months): Chronic kidney disease 15 or less: Kidney failureMethodist Hospital NortheastGlucose Lpdzz8166-76-77 05:37:00* Test Item Value Reference Range Interpretation Comments Glucose Level (test code = RCW9204) 125 74-118 H [facility] NortheastCalcium Mxhbk3783-59-58 05:37:00* Test Item Value Reference Range Interpretation Comments Calcium Level (test code = 52262-4) 8.4 8.4-10.2 [facility] NortheastWhite Blood Drqoj9282-96-88 05:26:00* Test Item Value Reference Range Interpretation Comments White Blood Count (test code = 6690-2) 4.49 4.8-10.8 L [facility] NortheastRed Blood Tzviw5069-25-06 05:26:00* Test Item Value Reference Range Interpretation Comments Red Blood Count (test code = 789-8) 3.94 4.3-5.7 L [facility] NortheastHemoglobin2019-09-16 05:26:00* Test Item Value Reference Range Interpretation Comments Hemoglobin (test code = 93649-2) 11.0 14.0-18.0 L [facility] NortheastHematocrit2019-09-16 05:26:00* Test Item Value Reference Range Interpretation Comments Hematocrit (test code = 4544-3) 34.1 38.2-49.6 L [facility] NortheastMean Corpuscular Nwussa5465-56-65 05:26:00* Test Item Value Reference Range Interpretation Comments Mean Corpuscular Volume (test code = 787-2) 86.5 81-99 [facility]Mean Corpuscular Fbqvxuahjd7753-16-27 05:26:00* Test Item Value Reference Range Interpretation Comments Mean Corpuscular Hemoglobin (test code = 785-6) 27.9 28-32 L [facility] NortheastMean Corpuscular Hemoglobin Concent 2018-11-08 05:26:00* Test Item Value Reference Range Interpretation Comments Mean Corpuscular Hemoglobin Concent (test code = 786-4) 32.3 31-35 [facility] NortheastRed Cell Distribution Gamzd5694-14-35 05:26:00* Test Item Value Reference Range Interpretation Comments Red Cell Distribution Width (test code = 60668-1) 15.9 11.7 -14.4 H [facility] NortheastPlatelet Oolre5659-38-22 05:26:00* Test Item Value Reference Range Interpretation Comments Platelet Count (test code = 777-3) 101 140-360 L [facility] NortheastNeutrophils (%) (Auto)2018-11-08 05:26:00 * Test Item Value Reference Range Interpretation Comments Neutrophils (%) (Auto) (test code = 23403-7) 59.0 38.7-80.0 [facility] NortheastLymphocytes (%) (Auto)2018-11-08 [...] Comments Lymphocytes # (Auto) (test code = 84257-1) 1.2 1.0-3.2 [facility] NortheastMonocytes # (Auto)2018-11-08 [...] Granulocyte (auto) 0.02 0-0.1 [facility] NortheastMagnesium Ntgna6205-55-26 07:21:00* Test Item Value Reference Range Interpretation Comments Magnesium Level (test code = 22915-7) 1.5 1.3-2.1 [facility] NortheastMagnesium Mfjue1152-18-75 07:21:00* Test Item Value Reference Range Interpretation Comments Magnesium Level (test code = 91716-4) 1.5 1.3-2.1 [facility] Haigzkxgs4986-81-93 08:37:00* Test Item Value Reference Range Interpretation [...] = 1742-6) 14 0-55 [facility] Ghwjycr8200-75-12 08:37:00* Test Item Value Reference Range Interpretation Comments Total Protein (test code = 2885-2) 7.3 6.5-8.1 [facility] NortheastAlbumin2019-09-13 08:37:00* Test Item Value Reference Range Interpretation Comments Albumin (test code = 1751-7) 3.0 3.5-5.0 L [facility] NortheastGlobulin2019-09-13 08:37:00* Test Item Value Reference Range Interpretation Comments Globulin (test code = 37322-7) 4.3 2.3-3.5 H [facility] NortheastAlbumin/Globulin Hhuht2860-26-58 08:37:00 * Test Item Value Reference Range Interpretation Comments Albumin/Globulin Ratio (test code = 1759-0) 0.7 0.8-2.0 L [facility] NortheastAlkaline Vwiuqdkliqn0118-96-62 08:37:00* Test Item Value Reference Range Interpretation Comments Alkaline Phosphatase (test code = 6768-6) 200 40-150 H [facility] Rukarsg9787-17-69 05:38:00* Test Item Value Reference Range Interpretation Comments Blood Culture (test code = 72591390) NO GROWTH AFTER 5 DAYS, FINAL REPORT [facility] Yfhoszk2153-30-30 05:38:00* Test Item Value Reference Range Interpretation Comments Blood Culture (test code = 45291446) NO GROWTH AFTER 5 DAYS, FINAL REPORT [facility] Mkctwfv0308-03-52 05:38:00* Test Item Value Reference Range Interpretation Comments Blood Culture (test code = 74882935) NO GROWTH AFTER 5 DAYS, FINAL REPORT [facility] Hshmhhy8355-78-14 05:38:00* Test Item Value Reference Range Interpretation Comments Blood Culture (test code = 75674858) NO GROWTH AFTER 5 DAYS, FINAL REPORT [facility] Zzivv6941-60-17 05:51:00* Test Item Value Reference Range Interpretation Comments Phosphorus Level (test code = PLY0547) 5.4 2.3-4.7 H [facility] Zmuwg8033-37-33 05:51:00* Test Item Value Reference Range Interpretation Comments Phosphorus Level (test code = OHX9057) 5.4 2.3-4.7 H [facility] NortheastIron Wpmvz5556-91-08 06:18:00* Test Item Value Reference Range Interpretation Comments Iron Level (test code = 2498-4) 50 65-175 L [facility]Total Iron Binding Bzhviceu0315-09-30 06:18:00* Test Item Value Reference Range Interpretation Comments Total Iron Binding Capacity (test code = 2500-7) 232 261-4 78 L [facility] NortheastPercent Iron Nhgnogrkia3951-66-65 06:18:00* Test Item Value Reference Range Interpretation Comments Percent Iron Saturation (test code = 2502-3) 22 15-50 [facility] NortheastTransferrin2019-09-09 06:18:00* Test Item Value Reference Range Interpretation Comments Transferrin (test code = 3034-6) 166 174-364 L [facility]2019-09-09 06:18:00* Test Item Value Reference Range Interpretation Comments Iron Level (test code = 2498-4) 50 65-175 L [facility] Iron Binding Qrpofaoo2241-81-48 06:18:00* Test Item Value Reference Range Interpretation Comments Total Iron Binding Capacity (test code = 2500-7) 232 261-4 78 L [facility] Iron Rqtzikukrh8893-70-18 06:18:00* Test Item Value Reference Range Interpretation Comments Percent Iron Saturation (test code = 2502-3) 22 15-50 [facility]2019-09-09 06:18:00* Test Item Value Reference Range Interpretation Comments Transferrin (test code = 3034-6) 166 174-364 L [facility]2019-09-09 06:18:00* Test Item Value Reference Range Interpretation Comments Iron Level (test code = 2498-4) 50 65-175 L [facility] Iron Binding Jywktorx0416-10-23 06:18:00* Test Item Value Reference Range Interpretation Comments Total Iron Binding Capacity (test code = 2500-7) 232 261-4 78 L [facility] Iron Hqkdqeuwrz2331-98-35 06:18:00* Test Item Value Reference Range Interpretation Comments Percent Iron Saturation (test code = 2502-3) 22 15-50 [facility]2019-09-09 06:18:00* Test Item Value Reference Range Interpretation Comments Transferrin (test code = 3034-6) 166 174-364 L [facility]2019-09-09 06:18:00* Test Item Value Reference Range Interpretation Comments Iron Level (test code = 2498-4) 50 65-175 L [facility] Iron Binding Eodohouj2995-22-10 06:18:00* Test Item Value Reference Range Interpretation Comments Total Iron Binding Capacity (test code = 2500-7) 232 261-4 78 L [facility]Percent Iron Gelerabedc8811-71-83 06:18:00* Test Item Value Reference Range Interpretation Comments Percent Iron Saturation (test code = 2502-3) 22 15-50 [facility] NortheastTransferrin2019-09-09 06:18:00* Test Item Value Reference Range Interpretation Comments Transferrin (test code = 3034-6) 166 174-364 L [facility] NortheastUrine BAN0633-54-95 15:35:00* Test Item Value Reference Range Interpretation Comments Urine WBC (test code = 5821-4) >50 0-5 H [facility] HEO7207-39-10 15:35:00* Test Item Value Reference Range Interpretation Comments Urine RBC (test code = 35434-4) >50 0-5 H [facility] Hdgftklz0200-26-69 15:35:00* Test Item Value Reference Range Interpretation Comments Urine Bacteria (test code = 59664-6) MANY NONE H [facility] Epithelial Qnlsu8354-86-42 15:35:00 * Test Item Value Reference Range Interpretation Comments Urine Epithelial Cells (test code = 01195-6) MANY NONE [facility] Kzxrk3615-92-38 15:11:00* Test Item Value Reference Range Interpretation Comments Urine Color (test code = 5778-6) YELLOW YELLOW [facility] Visbbov5840-72-52 15:11:00* Test Item Value Reference Range Interpretation Comments Urine Clarity (test code = 33031-5) SL CLOUDY CLEAR H [facility] NortheastU[facility] Specific Qxafxwt1125-37-19 15:11:00 * Test Item Value Reference Range Interpretation Comments Urine Specific [place] (test code = 5811-5) 1.025 1.010-1.02 5 [facility] yV9656-01-93 15:11:00* Test Item Value Reference Range Interpretation Comments Urine pH (test code = 15921-7) 6 5-7 [facility] Leukocyte Sbhxksjr5965-77-23 15:11:00* Test Item Value Reference Range Interpretation Comments Urine Leukocyte Esterase (test code = 11541-5) NEGATIVE NEGATIV E [facility] Zxsryda1910-01-27 15:11:00* Test Item Value Reference Range Interpretation Comments Urine Nitrite (test code = 74055-6) NEGATIVE NEGATIVE [facility] Gcmziug5816-09-68 15:11:00* Test Item Value Reference Range Interpretation Comments Urine Protein (test code = 81261-6) 3+ NEGATIVE H [facility] Glucose (UA)2018-10-31 15:11:00* Test Item Value Reference Range Interpretation Comments Urine Glucose (UA) (test code = 19259-6) NEGATIVE NEGATIVE [facility] Nczltgy3648-06-95 15:11:00* Test Item Value Reference Range Interpretation Comments Urine Ketones (test code = 20959-9) NEGATIVE NEGATIVE [facility] Dzkbzddceaxr1120-13-40 15:11:00* Test Item Value Reference Range Interpretation Comments Urine Urobilinogen (test code = 78408-0) 0.2 0.2-1 [facility] Xvqnyjkcf7947-28-47 15:11:00* Test Item Value Reference Range Interpretation Comments Urine Bilirubin (test code = 1977-8) NEGATIVE NEGATIVE [facility] Jyizq6848-08-59 15:11:00* Test Item Value Reference Range Interpretation Comments Urine Blood (test code = 22441-5) 3+ NEGATIVE [facility] NortheastCreat[facility] Kinase TI0913-34-17 08:40:00* Test Item Value Reference Range Interpretation Comments Creatine Kinase MB (test code = 60089-5) 1.60 0-5.0 [facility]Trop[facility] I7893-61-45 08:40:00* Test Item Value Reference Range Interpretation Comments Troponin I (test code = XPE4237) 0.008 0-0.300 [facility] NortheastCreat[facility] Kinase FF1827-09-36 08:40:00* Test Item Value Reference Range Interpretation Comments Creatine Kinase MB (test code = 76671-5) 1.60 0-5.0 [place] 71305019-09-08 08:40:00* Test Item Value Reference Range Interpretation Comments Troponin I (test code = XPK6208) 0.008 0-0.300 [facility]Creat[facility] Kinase VN4690-62-09 08:40:00* Test Item Value Reference Range Interpretation Comments Creatine Kinase MB (test code = 99838-8) 1.60 0-5.0 [place] 71305019-09-08 08:40:00* Test Item Value Reference Range Interpretation Comments Troponin I (test code = COE0400) 0.008 0-0.300 [facility]Creat[facility] Kinase YM2904-25-21 08:40:00* Test Item Value Reference Range Interpretation Comments Creatine Kinase MB (test code = 10533-3) 1.60 0-5.0 [place] 71305019-09-08 08:40:00* Test Item Value Reference Range Interpretation Comments Troponin I (test code = BSE6857) 0.008 0-0.300 [facility]Creat[facility] Kinase GQ4509-84-73 08:40:00* Test Item Value Reference Range Interpretation Comments Creatine Kinase MB (test code = 76466-0) 1.60 0-5.0 [place] 71305019-09-08 08:40:00* Test Item Value Reference Range Interpretation Comments Troponin I (test code = UJZ0817) 0.008 0-0.300 [facility]Creat[facility] Kinase VZ5713-42-42 08:40:00* Test Item Value Reference Range Interpretation Comments Creatine Kinase MB (test code = 00135-3) 1.60 0-5.0 [place] 71305019-09-08 08:40:00* Test Item Value Reference Range Interpretation Comments Troponin I (test code = 53169-0) 0.008 0-0.300 [facility] Kin[facility] QB5863-05-02 08:40:00* Test Item Value Reference Range Interpretation Comments Creatine Kinase MB (test code = 03038-5) 1.60 0-5.0 [facility] F4223-18-45 08:40:00* Test Item Value Reference Range Interpretation Comments Troponin I (test code = 49562-1) 0.008 0-0.300 [facility] Qxrmqp3551-11-92 07:55:00* Test Item Value Reference Range Interpretation Comments Creatine Kinase (test code = 2157-6) 266 30-200 H [facility] Nrqurz0929-95-43 07:55:00* Test Item Value Reference Range Interpretation Comments Creatine Kinase (test code = 2157-6) 266 30-200 H [facility]Creatine Ltdnvz3375-47-74 07:55:00* Test Item Value Reference Range Interpretation Comments Creatine Kinase (test code = 2157-6) 266 30-200 H [facility] Owwwfo8771-88-17 07:55:00* Test Item Value Reference Range Interpretation Comments Creatine Kinase (test code = 2157-6) 266 30-200 H [facility]Creat[facility] Mklaza5029-73-28 07:55:00* Test Item Value Reference Range Interpretation Comments Creatine Kinase (test code = 2157-6) 266 30-200 H [facility] Aplxoi8063-08-23 07:55:00* Test Item Value Reference Range Interpretation Comments Creatine Kinase (test code = 2157-6) 266 30-200 H [facility]Creat[facility] Kchcii4036-08-53 07:55:00* Test Item Value Reference Range Interpretation Comments Creatine Kinase (test code = 2157-6) 266 30-200 H [facility]CT ABDOMEN/PELVIS DO8937-00-12 02:46:00 [facility] [address] [place] [address] Patient Name: MANJIT LUO MR #: [id number] : 981 Age/Sex: 38/M Req #: [id number] Adm Physician: Ordered by: BEV FLORES MD Report #: [id number] Location: ER Room/Bed: Procedure: [id number] CT/CT ABDOMEN/PELVIS WO Exam Date: 10/31/18 Exam [...] 10/31/18252 COPY TO: BEV FLORES MD Bedside Vnaoemh7898-04-84 07:32:00* Test Item Value Reference Range Interpretation Comments Bedside Glucose (test code = 10817-6) 106 70-120 Meter ID: [id number] [facility] Hospitalodium Level 2018-10-29 07:01:00* Test Item Value Reference Range Interpretation Comments Sodium Level (test code = 2951-2) 138 136-145 [facility]Pot[facility] Scxhz1009-81-28 07:01:00* Test Item Value Reference Range Interpretation Comments Potassium Level (test code = 2823-3) 4.5 3.5-5.1 [facility]Chloride Kzmuy0775-38-75 07:01:00* Test Item Value Reference Range Interpretation Comments Chloride Level (test code = 2075-0) 103 98-107 [facility]Car[facility] Dioxide Mmvpe0176-89-37 07:01:00* Test Item Value Reference Range Interpretation Comments Carbon Dioxide Level (test code = 2028-9) 24 22-29 [facility]Anion Qae9140-66-17 07:01:00* Test Item Value Reference Range Interpretation Comments Anion Gap (test code = 98288-2) 15.5 8-16 [facility] NortheastBlood Urea Apenhckc0682-85-79 07:01:00* Test Item Value Reference Range Interpretation Comments Blood Urea Nitrogen (test code = 3094-0) 29 7-26 H [facility] NortheastCreatinine2019-09-06 07:01:00* Test Item Value Reference Range Interpretation Comments Creatinine (test code = 2160-0) 3.71 0.72-1.25 H [facility]BUN/Creatinine Movdq1288-29-08 07:01:00* Test Item Value Reference Range Interpretation Comments BUN/Creatinine Ratio (test code = 3097-3) 8 6-25 [facility]Estimat Glomerular Filtration Rate 2018-10-29 07:01:00* Test Item Value Reference Range Interpretation Comments Estimat Glomerular Filtration Rate (test code = 760031808) 18 >60 L Ranges were taken from the National Kidney Disease Education Program and the [facility] literature.Reference ranges:60 or greater: Bgorsj02-84 ( for 3 consecutive months): Chronic kidney disease 15 or less: Kidney failureMethodist Hospital NortheastGlucose Ntlhw5448-42-89 07:01:00* Test Item Value Reference Range Interpretation Comments Glucose Level (test code = VHP0144) 104 74-118 [facility]Calcium Mbjhy2363-36-76 07:01:00* Test Item Value Reference Range Interpretation Comments Calcium Level (test code = 70293-2) 8.2 8.4-10.2 L [facility]White Blood Uaisx2561-50-84 06:31:00* Test Item Value Reference Range Interpretation Comments White Blood Count (test code = 6690-2) 5.14 4.8-10.8 [facility]Red Blood Zbjyd6218-08-20 06:31:00* Test Item Value Reference Range Interpretation Comments Red Blood Count (test code = 789-8) 3.56 4.3-5.7 L [facility]Hemoglobin2019-09-06 06:31:00* Test Item Value Reference Range Interpretation Comments Hemoglobin (test code = 71594-3) 9.8 14.0-18.0 L [facility]Hematocrit2019-09-06 06:31:00* Test Item Value Reference Range Interpretation Comments Hematocrit (test code = 4544-3) 30.4 38.2-49.6 L [facility] NortheastMean Corpuscular Izhmbh5998-54-08 06:31:00* Test Item Value Reference Range Interpretation Comments Mean Corpuscular Volume (test code = 787-2) 85.4 81-99 [facility]Mean Corpuscular Xcrsmqxcun9169-43-70 06:31:00* Test Item Value Reference Range Interpretation Comments Mean Corpuscular Hemoglobin (test code = 785-6) 27.5 28-32 L [facility] NortheastMean Corpuscular Hemoglobin Concent 2018-10-29 06:31:00* Test Item Value Reference Range Interpretation Comments Mean Corpuscular Hemoglobin Concent (test code = 786-4) 32.2 31-35 [facility] NortheastRed Cell Distribution Bxeuu3933-60-73 06:31:00* Test Item Value Reference Range Interpretation Comments Red Cell Distribution Width (test code = 97780-8) 15.0 11.7 -14.4 H [facility] NortheastPlatelet Qbxdr7509-17-65 06:31:00* Test Item Value Reference Range Interpretation Comments Platelet Count (test code = 777-3) 103 140-360 L [facility] NortheastNeutrophils (%) (Auto)2018-10-29 06:31:00 * Test Item Value Reference Range Interpretation Comments Neutrophils (%) (Auto) (test code = 13455-6) 56.2 38.7-80.0 [facility] NortheastLymphocytes (%) (Auto)2018-10-29 [...] Comments Lymphocytes # (Auto) (test code = 56108-6) 1.7 1.0-3.2 [facility] NortheastMonocytes # (Auto)2018-10-29 [...] 0.0-0.1 [facility] NortheastAbsolute Immature Granulocyte (auto 2018-10-29 06:31:00* Test Item Value Reference Range Interpretation Comments Absolute Immature Granulocyte (auto (shin t code = Absolute Immature Granulocyte (auto) 0.04 0-0.1 [facility] Occult Wgyil4390-18-39 16:26:00* Test Item Value Reference Range Interpretation Comments Stool Occult Blood (test code = 2335-8) NEGATIVE NEGATIVE [facility] Occult Qwzgx4916-12-72 16:26:00* Test Item Value Reference Range Interpretation Comments Stool Occult Blood (test code = 2335-8) NEGATIVE NEGATIVE [facility] Occult Jfqoe2168-86-30 16:26:00* Test Item Value Reference Range Interpretation Comments Stool Occult Blood (test code = 2335-8) NEGATIVE NEGATIVE [facility] Occult Xjwcx6659-53-16 16:26:00* Test Item Value Reference Range Interpretation Comments Stool Occult Blood (test code = 2335-8) NEGATIVE NEGATIVE [facility] Occult Wwxoc3908-57-03 16:26:00* Test Item Value Reference Range Interpretation Comments Stool Occult Blood (test code = 2335-8) NEGATIVE NEGATIVE [facility] Occult Yvfwq5875-74-19 16:26:00* Test Item Value Reference Range Interpretation Comments Stool Occult Blood (test code = 2335-8) NEGATIVE NEGATIVE [facility] Occult Bglwi2286-90-02 16:26:00* Test Item Value Reference Range Interpretation Comments Stool Occult Blood (test code = 2335-8) NEGATIVE NEGATIVE [facility] Occult Difwu4331-70-56 16:26:00* Test Item Value Reference Range Interpretation Comments Stool Occult Blood (test code = 2335-8) NEGATIVE NEGATIVE [facility] gastrointestinal hemoglobin nwejtzscx2989-81-16 15:53:00* Test Item Value Reference Range Interpretation Comments Stool Occult Blood (test code = 2335-8) NEGATIVE NEGATIVE [facility] gastrointestinal hemoglobin hcnknqrkn5733-66-09 15:53:00* Test Item Value Reference Range Interpretation Comments Stool Occult Blood (test code = 2335-8) NEGATIVE NEGATIVE [facility] NortheastUrine Xpnckkp9036-55-67 07:43:00* Test Item Value Reference Range Interpretation Comments Urine Culture (test code = 630-4) Organism: PSEUDOMONAS AERUGINOSA [facility] Riefdcu3888-50-59 07:43:00* Test Item Value Reference Range Interpretation Comments Urine Culture (test code = 630-4) Organism: PSEUDOMONAS AERUGINOSA [facility] Msxihmq3916-27-34 07:43:00* Test Item Value Reference Range Interpretation Comments Urine Culture (test code = 630-4) Organism: PSEUDOMONAS AERUGINOSA [facility] Gbfozzg9627-89-54 07:43:00* Test Item Value Reference Range Interpretation Comments Urine Culture (test code = 630-4) No Result Data Provided [facility] Ochulmb5697-46-37 07:43:00* Test Item Value Reference Range Interpretation Comments Urine Culture (test code = 630-4) No Result Data Provided [facility]RE[facility] W/RHUBT3421-81-27 17:45:00 [facility] [address] [place] [address] Patient Name: MANJIT LUO MR #: [id number] : 1980 Age/Sex: 38/M Req #: [id number] Adm Physician: ABHIJIT YODER MD Ordered by: CASTRO JALLOH MD Report #: [id number] Location: MED/SURG3 Room/Bed: [facility] Procedure: [id number] NM/RE NAL SCAN W/LASIX Exam Date: Exam Time: REPORT STATUS: Signed Renal Scan with Lasix Washout Clinical information: Acute renal failure Technique: Followin g intravenous administration of 10 mCi of Tc-99m [...] begins promptly but is not complete by th e end of the study. The pelvicalyceal system is moderately dilated. Increase d pooling of tracer is seen within the pelvicalyceal system. No net drainage of tracer from the pelvicalyceal system is seen prior to administration of Las ix. Washout of tracer from the pelvicalyceal system following administration of Lasix is slow with a T-1/2 of 15 minutes (normal less than 15 minutes). No significant stasis of tracer is seen within the left ureter. Right kidne y: Perfusion to the right kidney is prompt. [...] 6:04 PM Dictated By: YULY PERALTA MD [facility] Signed By: YULY PERALTA MD on 10/21/181803 Transcribed By: TIFFANY on 1803 COPY TO: CASTRO JALLOH MD Urine Euhncxv3006-41-15 14:00:00* Test Item Value Reference Range Interpretation Comments Urine Culture (test code = 630-4) Organism: STAPHYLOCOCCUS AUREUS [facility] Busptlt2572-12-80 14:00:00* Test Item Value Reference Range Interpretation Comments Urine Culture (test code = 630-4) Organism: STAPHYLOCOCCUS AUREUS [facility] NortheastUrine Ltojswo4206-79-77 14:00:00* Test Item Value Reference Range Interpretation Comments Urine Culture (test code = 630-4) Organism: STAPHYLOCOCCUS AUREUS [facility] NortheastUrine Mwypouv2459-71-28 14:00:00* Test Item Value Reference Range Interpretation Comments Urine Culture (test code = 630-4) No Result Data Provided [facility] Zjifwoo1664-98-66 14:00:00* Test Item Value Reference Range Interpretation [...] = 2276-4) 242.22 21.81-274.66 [facility] NortheastMagnesium Qpzqf6077-00-20 06:25:00* Test Item Value Reference Range Interpretation Comments Magnesium Level (test code = 34895-2) 1.2 1.3-2.1 L [facility] NortheastIron Wukdl9430-60-73 06:25:00* Test Item Value Reference Range Interpretation Comments Iron Level (test code = 2498-4) 66 65-175 [facility] NortheastTotal Iron Binding Ctmshffl4797-46-62 06:25:00* Test Item Value Reference Range Interpretation Comments Total Iron Binding Capacity (test code = 2500-7) 197 261-4 78 L [facility] NortheastPercent Iron Cwzizkdlbe3557-60-49 06:25:00* Test Item Value Reference Range Interpretation Comments Percent Iron Saturation (test code = 2502-3) 34 15-50 [facility] NortheastTransferrin2019-08-27 06:25:00* Test Item Value Reference Range Interpretation Comments Transferrin (test code = 3034-6) 141 174-364 L [facility] NortheastPhosphorus Qaxui0353-13-32 12:53:00* Test Item Value Reference Range Interpretation Comments Phosphorus Level (test code = RWU1654) 5.0 2.3-4.7 H [facility]CT [facility]/PELVIS HY8537-18-62 09:50:00 [facility] [address] [address] Patient Name: MANJIT LUO MR #: [id number] : [birth year] Age/Sex: 38/M Req #: [id number] Adm Physician: ABHIJIT YODER MD Ordered by: ABHIJIT YODER MD Report #: [id number] Location: MED/SURG Room/Bed: [facility] Procedure: [id number] CT/CT ABDOMEN/PELVIS WO Exam Date: 10/18/18 Exam [...] MD 1000 COPY TO: ABHIJIT YODER Ionized Qhndkgm1488-55-88 09:47:00* Test Item Value Reference Range Interpretation Comments Ionized Calcium (test code = 77018-7) 1.0 1.09-1.30 L [facility] NortheastIonized Szdtlja7484-74-60 09:47:00* Test Item Value Reference Range Interpretation Comments Ionized Calcium (test code = 58592-2) 1.0 1.09-1.30 L [facility] NortheastIonized Fboboya9872-53-70 09:47:00* Test Item Value Reference Range Interpretation Comments Ionized Calcium (test code = 22605-4) 1.0 1.09-1.30 L [facility] NortheastTotal Ylvadgauu9755-80-60 06:16:00* Test Item Value Reference Range Interpretation [...] 1742-6) 107 0-55 H [facility] NortheastTotal Lrpgvrq6903-53-64 06:16:00* Test Item Value Reference Range Interpretation Comments Total Protein (test code = 2885-2) 6.5 6.5-8.1 [facility] NortheastAlbumin2019-08-26 06:16:00* Test Item Value Reference Range Interpretation Comments Albumin (test code = 1751-7) 2.7 3.5-5.0 L [facility] NortheastGlobulin2019-08-26 06:16:00* Test Item Value Reference Range Interpretation Comments Globulin (test code = 93307-2) 3.8 2.3-3.5 H [facility] NortheastAlbumin/Globulin Vdkzz8925-02-73 06:16:00 * Test Item Value Reference Range Interpretation Comments Albumin/Globulin Ratio (test code = 1759-0) 0.7 0.8-2.0 L [facility] NortheastAlkaline Dbwyztfscrh7668-72-71 06:16:00* Test Item Value Reference Range Interpretation Comments Alkaline Phosphatase (test code = 6768-6) 306 40-150 H [facility] NortheastUrine Zlbrc2276-36-48 02:26:00* Test Item Value Reference Range Interpretation Comments Urine Color (test code = 5778-6) YELLOW YELLOW [facility] Vgjlxct7471-51-28 02:26:00* Test Item Value Reference Range Interpretation Comments Urine Clarity (test code = 46758-8) CLOUDY CLEAR H [facility] NortheastU[facility] Specific Xrsehjh0816-02-78 02:26:00 * Test Item Value Reference Range Interpretation Comments Urine Specific Clark (test code = 5811-5) 1.020 1.010-1.02 5 [facility] tN3637-76-82 02:26:00* Test Item Value Reference Range Interpretation Comments Urine pH (test code = 92054-3) 6 5-7 [facility] Leukocyte Savepzia0389-78-76 02:26:00* Test Item Value Reference Range Interpretation Comments Urine Leukocyte Esterase (test code = 5799-2) 2+ NEGATIVE H [facility] NortheastU[facility] Gzbwtqu4375-61-75 02:26:00* Test Item Value Reference Range Interpretation Comments Urine Nitrite (test code = 23350-0) NEGATIVE NEGATIVE [facility] Sjcouhe3556-61-44 02:26:00* Test Item Value Reference Range Interpretation Comments Urine Protein (test code = 5804-0) 3+ NEGATIVE H [facility] NortheastU[facility] Glucose (UA)2018-10-17 02:26:00* Test Item Value Reference Range Interpretation Comments Urine Glucose (UA) (test code = 2349-9) NEGATIVE NEGATIVE [facility] Zquqhom0398-73-72 02:26:00* Test Item Value Reference Range Interpretation Comments Urine Ketones (test code = 98702-0) NEGATIVE NEGATIVE [facility] Yjqosewvrfvz7198-28-11 02:26:00* Test Item Value Reference Range Interpretation Comments Urine Urobilinogen (test code = 33228-8) 0.2 0.2-1 [facility] Byrhncnwb9975-42-95 02:26:00* Test Item Value Reference Range Interpretation Comments Urine Bilirubin (test code = 1978-6) NEGATIVE NEGATIVE [facility] Pbriq2136-16-93 02:26:00* Test Item Value Reference Range Interpretation Comments Urine Blood (test code = 47206-2) 3+ NEGATIVE H [facility] NortheastU[facility] HNH1108-62-80 02:26:00* Test Item Value Reference Range Interpretation Comments Urine WBC (test code = 5821-4) >50 0-5 H [facility] APG6750-08-66 02:26:00* Test Item Value Reference Range Interpretation Comments Urine RBC (test code = 07871-1) >50 0-5 H [facility] Oejexzqh5888-09-93 02:26:00* Test Item Value Reference Range Interpretation Comments Urine Bacteria (test code = 80748-1) MANY NONE H [facility] NortheastU[facility] Epithelial Fcmck1207-41-33 02:26:00 * Test Item Value Reference Range Interpretation Comments Urine Epithelial Cells (test code = 34193-9) MODERATE NONE [facility] Dqejb5356-70-06 13:40:00* Test Item Value Reference Range Interpretation Comments Sodium Level (test code = 2951-2) 142 136-145 [facility] NortheastPotassium Xonym9731-35-74 13:40:00* Test Item Value Reference Range Interpretation Comments Potassium Level (test code = 2823-3) 4.4 3.5-5.1 [facility] NortheastChloride Httqd0248-00-97 13:40:00* Test Item Value Reference Range Interpretation Comments Chloride Level (test code = 2075-0) 107 98-107 [facility] NortheastCar[facility] Dioxide Jciol5066-31-74 13:40:00* Test Item Value Reference Range Interpretation Comments Carbon Dioxide Level (test code = 2028-9) 25 22-29 [facility] NortheastAnion Jps8197-68-15 13:40:00* Test Item Value Reference Range Interpretation Comments Anion Gap (test code = 48245-9) 14.4 8-16 [facility] NortheastBlood Urea Zihtxdun7065-41-31 13:40:00* Test Item Value Reference Range Interpretation Comments Blood Urea Nitrogen (test code = 3094-0) 34 7-26 H [facility] NortheastCreatinine2019-05-05 13:40:00* Test Item Value Reference Range Interpretation Comments Creatinine (test code = 2160-0) 2.63 0.72-1.25 H [facility] NortheastBUN/Creatinine Wdbnj1541-04-48 13:40:00* Test Item Value Reference Range Interpretation Comments BUN/Creatinine Ratio (test code = 3097-3) 13 6-25 [facility] NortheastEstimat Glomerular Filtration Rate 2018-06-27 13:40:00* Test Item Value Reference Range Interpretation Comments Estimat Glomerular Filtration Rate (test code = 322578843) 28 >60 L Ranges were taken from the National Kidney Disease Education Program and the [facility] literature.Reference ranges:60 or greater: Wpzeqq01-28 ( for 3 consecutive months): Chronic kidney disease 15 or less: Kidney failureMethodist Hospital NortheastGlucose Xubuk7473-38-11 13:40:00* Test Item Value Reference Range Interpretation Comments Glucose Level (test code = NBR2133) 105 74-118 [facility] NortheastCalcium Hxusw7279-20-26 13:40:00* Test Item Value Reference Range Interpretation Comments Calcium Level (test code = 79553-6) 7.1 8.4-10.2 L [facility] NortheastBedside Vxicpvt0378-91-38 11:50:00* Test Item Value Reference Range Interpretation Comments Bedside Glucose (test code = 12369-1) 160 70-120 H Meter ID: [id number] [facility] 2018-06-25 17:11:00* Test Item Value Reference Range Interpretation Comments Blood Culture (test code = 25285215) NO GROWTH AFTER 5 DAYS, FINAL REPORT [facility]Bl[facility] Kmguvfg6180-88-83 17:11:00* Test Item Value Reference Range Interpretation Comments Blood Culture (test code = 85374274) NO GROWTH AFTER 5 DAYS, FINAL REPORT [facility] NortheastWhite Blood Siatx8190-54-48 06:01:00* Test Item Value Reference Range Interpretation Comments White Blood Count (test code = 6690-2) 4.22 4.8-10.8 L [facility] NortheastRed Blood Mdlji7871-37-88 06:01:00* Test Item Value Reference Range Interpretation Comments Red Blood Count (test code = 789-8) 3.20 4.3-5.7 L [facility] NortheastHemoglobin2019-05-03 06:01:00* Test Item Value Reference Range Interpretation Comments Hemoglobin (test code = 46287-5) 8.6 14.0-18.0 L [facility] NortheastHematocrit2019-05-03 06:01:00* Test Item Value Reference Range Interpretation Comments Hematocrit (test code = 4544-3) 26.0 38.2-49.6 L [facility] NortheastMean Corpuscular Wedojh9872-78-66 06:01:00* Test Item Value Reference Range Interpretation Comments Mean Corpuscular Volume (test code = 787-2) 81.3 81-99 [facility] NortheastMean Corpuscular Rhnubpjbon0392-50-66 06:01:00* Test Item Value Reference Range Interpretation Comments Mean Corpuscular Hemoglobin (test code = 785-6) 26.9 28-32 L [facility] Corpuscular Hemoglobin Concent 2018-06-25 06:01:00* Test Item Value Reference Range Interpretation Comments Mean Corpuscular Hemoglobin Concent (test code = 786-4) 33.1 31-35 [facility] NortheastRed Cell Distribution Wszoq9044-65-39 06:01:00* Test Item Value Reference Range Interpretation Comments Red Cell Distribution Width (test code = 21868-9) 13.7 11.7 -14.4 [facility] NortheastPlatelet Xvrnb3211-41-76 06:01:00* Test Item Value Reference Range Interpretation Comments Platelet Count (test code = 777-3) 147 140-360 [facility] NortheastNeutrophils (%) (Auto)2018-06-25 06:01:00 * Test Item Value Reference Range Interpretation Comments Neutrophils (%) (Auto) (test code = 24835-3) 56.1 38.7-80.0 [facility] NortheastLymphocytes (%) (Auto)2018-06-25 [...] Comments Lymphocytes # (Auto) (test code = 31194-5) 1.4 1.0-3.2 [facility] NortheastMonocytes # (Auto)2018-06-25 [...] = 2276-4) 273.51 21.81-274.66 [facility] NortheastIron Jirge5207-93-39 06:46:00* Test Item Value Reference Range Interpretation Comments Iron Level (test code = 2498-4) 71 65-175 [facility] NortheastTotal Iron Binding Yqzfflvf6468-49-25 06:46:00* Test Item Value Reference Range Interpretation Comments Total Iron Binding Capacity (test code = 2500-7) 217 261-4 78 L [facility] NortheastPercent Iron Smaeapuzey3207-40-38 06:46:00* Test Item Value Reference Range Interpretation Comments Percent Iron Saturation (test code = 2502-3) 33 15-50 [facility] NortheastTransferrin2019-05-01 06:46:00* Test Item Value Reference Range Interpretation Comments Transferrin (test code = 3034-6) 155 174-364 L [facility] NortheastPhosphorus Cdpvc6644-30-31 06:11:00* Test Item Value Reference Range Interpretation Comments Phosphorus Level (test code = JDQ2999) 4.8 2.3-4.7 H [facility] NortheastMagnesium Cxria7588-74-29 06:11:00* Test Item Value Reference Range Interpretation Comments Magnesium Level (test code = 16479-0) 1.2 1.3-2.1 L [facility] NortheastUrine Random Total Dhdtdgi0068-33-25 18:31:00* Test Item Value Reference Range Interpretation Comments Urine Random Total Protein (test code = 2888-6) 227.6 1-14 H [facility] NortheastU[facility] Protein/Creatinine Mxcvk2077-26-17 18:31:00* Test Item Value Reference Range Interpretation Comments Urine Protein/Creatinine Ratio (test code = 20827-1) 2.00 [facility] NortheastU[facility] Random Total Zcuyrkm3235-91-19 18:31:00* Test Item Value Reference Range Interpretation Comments Urine Random Total Protein (test code = 2888-6) 227.6 1-14 H [facility] NortheastU[facility] Protein/Creatinine Lhkjr4417-56-50 18:31:00* Test Item Value Reference Range Interpretation Comments Urine Protein/Creatinine Ratio (test code = 28862-0) 2.00 [facility] NortheastU[facility] Random Total Elitizr2747-87-99 18:31:00* Test Item Value Reference Range Interpretation Comments Urine Random Total Protein (test code = 2888-6) 227.6 1-14 [facility]Creatinine Ybans9505-97-88 18:31:00* Test Item Value Reference Range Interpretation Comments Urine Protein/Creatinine Ratio (test code = 30768-2) 2.00 [facility] Total Rocesxz8302-97-01 18:31:00* Test Item Value Reference Range Interpretation Comments Urine Random Total Protein (test code = 2888-6) 227.6 1-14 [facility]/Creatinine Nafdg4952-75-96 18:31:00* Test Item Value Reference Range Interpretation Comments Urine Protein/Creatinine Ratio (test code = 51435-5) 2.00 [facility] Pqaxzno6270-36-40 18:31:00* Test Item Value Reference Range Interpretation Comments Urine Random Total Protein (test code = 2888-6) 227.6 1-14 [facility] Protein/Creatinine Plxak8249-46-77 18:31:00* Test Item Value Reference Range Interpretation Comments Urine Protein/Creatinine Ratio (test code = 85833-6) 2.00 [facility] Random Total Pzrjkpt5023-28-28 18:31:00* Test Item Value Reference Range Interpretation Comments Urine Random Total Protein (test code = 2888-6) 227.6 1-14 H [facility] Protein/Creatinine Cqzkz9214-60-90 18:31:00* Test Item Value Reference Range Interpretation Comments Urine Protein/Creatinine Ratio (test code = 19947-5) 2.00 [facility] Idbnxltupm1212-48-45 18:19:00* Test Item Value Reference Range Interpretation Comments Urine Creatinine (test code = 2161-8) 76.55 63-166 [facility] Yhwuqpkxbe1140-06-23 18:19:00* Test Item Value Reference Range Interpretation Comments Urine Creatinine (test code = 2161-8) 76.55 63-166 [facility] Hnirozngun4460-89-37 18:19:00* Test Item Value Reference Range Interpretation Comments Urine Creatinine (test code = 2161-8) 76.55 63-166 [facility] Pxcdmkomnq6800-80-16 18:19:00* Test Item Value Reference Range Interpretation Comments Urine Creatinine (test code = 2161-8) 76.55 63-166 [facility] Twnguvqvid4325-86-82 18:19:00* Test Item Value Reference Range Interpretation Comments Urine Creatinine (test code = 2161-8) 76.55 63-166 [facility] Tswgrouwpo9226-70-12 18:19:00* Test Item Value Reference Range Interpretation Comments Urine Creatinine (test code = 2161-8) 76.55 63-166 [facility] Rtemdrdsu4688-40-57 06:25:00* Test Item Value Reference Range Interpretation [...] 1742-6) 76 0-55 [facility] Atvyjhw9298-47-01 06:25:00* Test Item Value Reference Range Interpretation Comments Total Protein (test code = 2885-2) 6.8 6.5-8.1 [facility] 06:25:00* Test Item Value Reference Range Interpretation Comments Albumin (test code = 1751-7) 2.1 3.5-5.0 [facility] 06:25:00* Test Item Value Reference Range Interpretation Comments Globulin (test code = 01950-0) 4.7 2.3-3.5 [facility]Globulin Yfims7409-16-85 06:25:00 * Test Item Value Reference Range Interpretation Comments Albumin/Globulin Ratio (test code = 1759-0) 0.4 0.8-2.0 [facility] Nkedqwlfvrc1505-93-51 06:25:00* Test Item Value Reference Range Interpretation Comments Alkaline Phosphatase (test code = 6768-6) 265 40-150 [facility]Hem[facility] A1c Zhusgtd9369-60-15 06:11:00 * Test Item Value Reference Range Interpretation Comments Hemoglobin A1c Percent (test code = Hemoglobin A1c Percent) 5.7 4.0-7.0 [facility] Fmluizq0625-24-42 06:11:00 * Test Item Value Reference Range Interpretation Comments Hemoglobin A1c Percent (test code = Hemoglobin A1c Percent) 5.7 4.0-7.0 [facility] Nrkishc7335-91-58 06:11:00 * Test Item Value Reference Range Interpretation Comments Hemoglobin A1c Percent (test code = Hemoglobin A1c Percent) 5.7 4.0-7.0 [facility] Lrzlqxo4959-24-52 06:11:00 * Test Item Value Reference Range Interpretation Comments Hemoglobin A1c Percent (test code = Hemoglobin A1c Percent) 5.7 4.0-7.0 [facility] Ztkryft2556-44-01 06:11:00 * Test Item Value Reference Range Interpretation Comments Hemoglobin A1c Percent (test code = Hemoglobin A1c Percent) 5.7 4.0-7.0 [facility] Giqlxee5029-82-81 06:11:00 * Test Item Value Reference Range Interpretation Comments Hemoglobin A1c Percent (test code = Hemoglobin A1c Percent) 5.7 4.0-7.0 [facility]12 Zncvy6322-91-38 11:07:00* Test Item Value Reference Range Interpretation Comments Vitamin B12 Level (test code = 21352-7) 403 213-816 [facility]2019-04-29 11:07:00* Test Item Value Reference Range Interpretation Comments Folate (test code = 2284-8) 7.2 7.0-15.4 [facility] Qfjtp0160-00-58 11:07:00* Test Item Value Reference Range Interpretation Comments Vitamin B12 Level (test code = 83846-4) 403 213-816 [facility]2019-04-29 11:07:00* Test Item Value Reference Range Interpretation Comments Folate (test code = 2284-8) 7.2 7.0-15.4 [facility] Bxrkx7461-78-86 11:07:00* Test Item Value Reference Range Interpretation Comments Vitamin B12 Level (test code = 62550-4) 403 213-816 [facility]2019-04-29 11:07:00* Test Item Value Reference Range Interpretation Comments Folate (test code = 2284-8) 7.2 7.0-15.4 [facility] Icnyf9760-25-34 11:07:00* Test Item Value Reference Range Interpretation Comments Vitamin B12 Level (test code = 77534-6) 403 213-816 [facility]2019-04-29 11:07:00* Test Item Value Reference Range Interpretation Comments Folate (test code = 2284-8) 7.2 7.0-15.4 [facility] Fqajy9622-93-81 11:07:00* Test Item Value Reference Range Interpretation Comments Vitamin B12 Level (test code = 05053-6) 403 213-816 [facility]2019-04-29 11:07:00* Test Item Value Reference Range Interpretation Comments Folate (test code = 2284-8) 7.2 7.0-15.4 [facility]12 Mzccu2091-70-04 11:07:00* Test Item Value Reference Range Interpretation Comments Vitamin B12 Level (test code = 66631-4) 403 213-816 [facility]2019-04-29 11:07:00* Test Item Value Reference Range Interpretation Comments Folate (test code = 2284-8) 7.2 7.0-15.4 [facility] H[facility]one (TSH) 2018-06-21 11:06:00* Test Item Value Reference Range Interpretation Comments Thyroid Stimulating Hormone (TSH) (test code = 66880-7) 2.156 0.350-4.940 [facility] (TSH) 2018-06-21 11:06:00* Test Item Value Reference Range Interpretation Comments Thyroid Stimulating Hormone (TSH) (test code = 53781-4) 2.156 0.350-4.940 [facility] (TSH) 2018-06-21 11:06:00* Test Item Value Reference Range Interpretation Comments Thyroid Stimulating Hormone (TSH) (test code = 73157-4) 2.156 0.350-4.940 [facility] (TSH) 2018-06-21 11:06:00* Test Item Value Reference Range Interpretation Comments Thyroid Stimulating Hormone (TSH) (test code = 17885-5) 2.156 0.350-4.940 [facility] (TSH) 2018-06-21 11:06:00* Test Item Value Reference Range Interpretation Comments Thyroid Stimulating Hormone (TSH) (test code = 85126-6) 2.156 0.350-4.940 [facility] (TSH) 2018-06-21 11:06:00* Test Item Value Reference Range Interpretation Comments Thyroid Stimulating Hormone (TSH) (test code = 77033-3) 2.156 0.350-4.940 [facility] JOB4482-07-32 17:46:00* Test Item Value Reference Range Interpretation Comments Urine WBC (test code = 5821-4) >50 0-5 [facility] PBA2665-50-55 17:46:00* Test Item Value Reference Range Interpretation Comments Urine RBC (test code = 73558-7) >50 0-5 [facility] Akheqxbz9297-78-12 17:46:00* Test Item Value Reference Range Interpretation Comments Urine Bacteria (test code = 07306-8) MANY NONE [facility] Epithelial Jvkhr9728-76-08 17:46:00 * Test Item Value Reference Range Interpretation Comments Urine Epithelial Cells (test code = 53469-6) FEW NONE [facility] Fine Granular Bprss7210-56-90 17:46:00* Test Item Value Reference Range Interpretation Comments Urine Fine Granular Casts (test code = 06052-5) 1-5 >0 [facility] Coarse Granular Dwjnq3048-35-36 17:46:00* Test Item Value Reference Range Interpretation Comments Urine Coarse Granular Casts (test code = 48421-9) 1-5 >0 [facility] Fine Granular Zcdkn7008-26-74 17:46:00* Test Item Value Reference Range Interpretation Comments Urine Fine Granular Casts (test code = 42929-3) 1-5 >0 [facility] Coarse Granular Vkwom9912-15-30 17:46:00* Test Item Value Reference Range Interpretation Comments Urine Coarse Granular Casts (test code = 40105-6) 1-5 >0 [facility] Fine Granular Rcdqa5613-25-22 17:46:00* Test Item Value Reference Range Interpretation Comments Urine Fine Granular Casts (test code = 20436-2) 1-5 >0 [facility] Coarse Granular Ckkjo0916-93-48 17:46:00* Test Item Value Reference Range Interpretation Comments Urine Coarse Granular Casts (test code = 73959-5) 1-5 >0 [facility] Fine Granular Qkosp6939-12-78 17:46:00* Test Item Value Reference Range Interpretation Comments Urine Fine Granular Casts (test code = 26912-4) 1-5 >0 [facility] Coarse Granular Lzcbj6504-57-83 17:46:00* Test Item Value Reference Range Interpretation Comments Urine Coarse Granular Casts (test code = 36458-8) 1-5 >0 [facility] Fine Granular Jniiw6185-91-31 17:46:00* Test Item Value Reference Range Interpretation Comments Urine Fine Granular Casts (test code = 43436-8) 1-5 >0 [facility] Coarse Granular Jnvwv4273-31-86 17:46:00* Test Item Value Reference Range Interpretation Comments Urine Coarse Granular Casts (test code = 41310-9) 1-5 >0 [facility] Fine Granular Yueyz5577-00-49 17:46:00* Test Item Value Reference Range Interpretation Comments Urine Fine Granular Casts (test code = 76388-8) 1-5 >0 [facility] Coarse Granular Xlgxj0771-46-96 17:46:00* Test Item Value Reference Range Interpretation Comments Urine Coarse Granular Casts (test code = 41191-7) 1-5 >0 [facility] Yufpd7083-53-58 17:30:00* Test Item Value Reference Range Interpretation Comments Urine Color (test code = 5778-6) YELLOW YELLOW [facility] Bbvhtar2305-74-30 17:30:00* Test Item Value Reference Range Interpretation Comments Urine Clarity (test code = 92585-5) CLOUDY CLEAR [facility] Specific Ifukeyn1889-97-97 17:30:00 * Test Item Value Reference Range Interpretation Comments Urine Specific Clark (test code = 5811-5) 1.020 1.010-1.02 5 [facility] oY3624-73-48 17:30:00* Test Item Value Reference Range Interpretation Comments Urine pH (test code = 55031-4) 6 5-7 [facility] Leukocyte Cnnvmlbh7228-17-21 17:30:00* Test Item Value Reference Range Interpretation Comments Urine Leukocyte Esterase (test code = 5799-2) 1+ NEGATIVE [facility] Wtirqja4125-61-33 17:30:00* Test Item Value Reference Range Interpretation Comments Urine Nitrite (test code = 24256-6) NEGATIVE NEGATIVE [facility] Lpvwnds6897-08-75 17:30:00* Test Item Value Reference Range Interpretation Comments Urine Protein (test code = 5804-0) 3+ NEGATIVE [facility] Glucose (UA)2018-06-20 17:30:00* Test Item Value Reference Range Interpretation Comments Urine Glucose (UA) (test code = 2349-9) 1+ NEGATIVE [facility] Hgjwxls9494-12-48 17:30:00* Test Item Value Reference Range Interpretation Comments Urine Ketones (test code = 96856-3) NEGATIVE NEGATIVE [facility] Gzqlezhjroru4041-82-29 17:30:00* Test Item Value Reference Range Interpretation Comments Urine Urobilinogen (test code = 84418-0) 0.2 0.2-1 [facility] Upasgdumt4979-35-25 17:30:00* Test Item Value Reference Range Interpretation Comments Urine Bilirubin (test code = 1978-6) NEGATIVE NEGATIVE [facility] Widcp4853-19-79 17:30:00* Test Item Value Reference Range Interpretation Comments Urine Blood (test code = 62335-7) 4+ NEGATIVE [facility] NortheastBedside Gokobxt6207-93-25 16:10:00* Test Item Value Reference Range Interpretation Comments Bedside Glucose (test code = 45678-3) 72 70-120 Meter ID: [id number] [facility] Culture 2018-05-07 07:13:00* Test Item Value Reference Range Interpretation Comments Urine Culture (test code = 630-4) Organism: PSEUDOMONAS AERUGINOSA [facility] Ylgoves4980-01-08 07:13:00* Test Item Value Reference Range Interpretation Comments Urine Culture (test code = 630-4) Organism: PSEUDOMONAS AERUGINOSA [facility] Rvaqauo1026-26-65 07:13:00* Test Item Value Reference Range Interpretation Comments Urine Culture (test code = 630-4) Organism: PSEUDOMONAS AERUGINOSA [facility] Welyvmb3162-02-90 07:13:00* Test Item Value Reference Range Interpretation Comments Urine Culture (test code = 630-4) Organism: PSEUDOMONAS AERUGINOSA [facility] Pwivnzk6183-49-96 07:13:00* Test Item Value Reference Range Interpretation Comments Urine Culture (test code = 630-4) Organism: PSEUDOMONAS AERUGINOSA [facility] Vcighak7117-03-79 07:13:00* Test Item Value Reference Range Interpretation Comments Urine Culture (test code = 630-4) No Result [facility] Jecuo8066-42-47 06:43:00* Test Item Value Reference Range Interpretation Comments Sodium Level (test code = 2951-2) 136 136-145 [facility] Euums7496-97-19 06:43:00* Test Item Value Reference Range Interpretation Comments Potassium Level (test code = 2823-3) 5.2 3.5-5.1 [facility]Chloride Smgxo0381-37-35 06:43:00* Test Item Value Reference Range Interpretation Comments Chloride Level (test code = 2075-0) 111 98-107 [facility] Dioxide Kjiml8551-13-54 06:43:00* Test Item Value Reference Range Interpretation Comments Carbon Dioxide Level (test code = 2028-9) 21 22-29 L [facility]Anion Nnb2730-15-06 06:43:00* Test Item Value Reference Range Interpretation Comments Anion Gap (test code = 05635-2) 9.2 8-16 [facility] Urea Wgbcdxmp8711-72-80 06:43:00* Test Item Value Reference Range Interpretation Comments Blood Urea Nitrogen (test code = 3094-0) 26 7-26 [facility]inine2019-03-14 06:43:00* Test Item Value Reference Range Interpretation Comments Creatinine (test code = 2160-0) 2.22 0.72-1.25 [facility]/Creatinine Fbdmn8628-33-40 06:43:00* Test Item Value Reference Range Interpretation Comments BUN/Creatinine Ratio (test code = 3097-3) 12 6-25 [facility] Glomerular Filtration Rate 2018-05-06 06:43:00* Test Item Value Reference Range Interpretation Comments Estimat Glomerular Filtration Rate (test code = 257438201) 33 >60 L Ranges were taken from the National Kidney Disease Education Program and the [facility] [employer] literature.Reference ranges:60 or greater: Nesryo75-30 ( for 3 consecutive months): Chronic kidney disease 15 or less: Kidney failureMethodist [facility] NortheastGlucose Dmsrb8009-06-53 06:43:00* Test Item Value Reference Range Interpretation Comments Glucose Level (test code = FPA6251) 144 74-118 [facility]Calcium Lvhqz9003-52-15 06:43:00* Test Item Value Reference Range Interpretation Comments Calcium Level (test code = 03309-8) 6.5 8.4-10.2 LL Results repeated and called to RANULFO ALATORRE RN at 0641 on 05/06/18 by Morenita Guy. Read back and verified.[facility]White Blood Wmwzd2222-84-89 06:20:00* Test Item Value Reference Range Interpretation Comments White Blood Count (test code = 6690-2) 3.55 4.8-10.8 L [facility] Blood Joxbj9080-58-97 06:20:00* Test Item Value Reference Range Interpretation Comments Red Blood Count (test code = 789-8) 3.25 4.3-5.7 L [facility]Hemoglobin2019-03-14 06:20:00* Test Item Value Reference Range Interpretation Comments Hemoglobin (test code = 25495-9) 8.6 14.0-18.0 L [facility]Hematocrit2019-03-14 06:20:00* Test Item Value Reference Range Interpretation Comments Hematocrit (test code = 4544-3) 27.2 38.2-49.6 L [facility] NortheastMean Corpuscular Mxsnvd2799-01-13 06:20:00* Test Item Value Reference Range Interpretation Comments Mean Corpuscular Volume (test code = 787-2) 83.7 81-99 [facility]Mean Corpuscular Ufarxwatpi1219-08-47 06:20:00* Test Item Value Reference Range Interpretation Comments Mean Corpuscular Hemoglobin (test code = 785-6) 26.5 28-32 L [facility]Mean Corpuscular Hemoglobin Concent 2018-05-06 06:20:00* Test Item Value Reference Range Interpretation Comments Mean Corpuscular Hemoglobin Concent (test code = 786-4) 31.6 31-35 [facility]Red Cell Distribution Sfzxv3600-86-85 06:20:00* Test Item Value Reference Range Interpretation Comments Red Cell Distribution Width (test code = 96785-9) 14.6 11.7 -14.4 [facility] NortheastPlatelet Iyswc5280-29-72 06:20:00* Test Item Value Reference Range Interpretation Comments Platelet Count (test code = 777-3) 113 140-360 [facility]Neutrophils (%) (Auto)2018-05-06 06:20:00 * Test Item Value Reference Range Interpretation Comments Neutrophils (%) (Auto) (test code = 00099-4) 59.6 38.7-80.0 [facility]Lymphocytes (%) (Auto)2018-05-06 [...] Comments Lymphocytes # (Auto) (test code = 15601-2) 0.9 1.0-3.2 [facility]Mon[facility] # [...] Immature Granulocyte (auto) 0.05 0-0.1 [facility]Total Bteurcjmm0064-37-49 06:21:00* Test Item Value Reference Range Interpretation [...] = 1742-6) 44 0-55 [facility] Ldoteqc4430-80-28 06:21:00* Test Item Value Reference Range Interpretation Comments Total Protein (test code = 2885-2) 6.6 6.5-8.1 [facility]Albumin2019-03-13 06:21:00* Test Item Value Reference Range Interpretation Comments Albumin (test code = 1751-7) 2.4 3.5-5.0 L [facility]Gl[facility]ulin2019-03-13 06:21:00* Test Item Value Reference Range Interpretation Comments Globulin (test code = 37678-5) 4.2 2.3-3.5 [facility]Albumin/Globulin Mxepb4473-50-87 06:21:00 * Test Item Value Reference Range Interpretation Comments Albumin/Globulin Ratio (test code = 1759-0) 0.6 0.8-2.0 L [facility] NortheastAlkaline Mecboqlfhpm2428-07-91 06:21:00* Test Item Value Reference Range Interpretation Comments Alkaline Phosphatase (test code = 6768-6) 272 40-150 [facility] Tlirl2428-29-49 01:32:00* Test Item Value Reference Range Interpretation Comments Urine Color (test code = 5778-6) YELLOW YELLOW [facility] Vkuddac1881-77-84 01:32:00* Test Item Value Reference Range Interpretation Comments Urine Clarity (test code = 10520-2) CLOUDY CLEAR [facility] Specific Dafmmed6115-91-84 01:32:00 * Test Item Value Reference Range Interpretation Comments Urine Specific Clark (test code = 5811-5) 1.025 1.010-1.02 5 [facility] kU2178-30-70 01:32:00* Test Item Value Reference Range Interpretation Comments Urine pH (test code = 98096-0) 6 5-7 [facility] Leukocyte Bysdqunm7563-74-29 01:32:00* Test Item Value Reference Range Interpretation Comments Urine Leukocyte Esterase (test code = 5799-2) 2+ NEGATIVE [facility] Bnnvyjb3155-15-63 01:32:00* Test Item Value Reference Range Interpretation Comments Urine Nitrite (test code = 38364-1) POSITIVE NEGATIVE [facility] Udqoudh0035-72-97 01:32:00* Test Item Value Reference Range Interpretation Comments Urine Protein (test code = 5804-0) 3+ NEGATIVE [facility] Glucose (UA)2018-05-04 01:32:00* Test Item Value Reference Range Interpretation Comments Urine Glucose (UA) (test code = 2349-9) 1+ NEGATIVE [facility] Mtogjqf8483-88-62 01:32:00* Test Item Value Reference Range Interpretation Comments Urine Ketones (test code = 97818-8) NEGATIVE NEGATIVE [facility] Lyzmnldngcwe7507-88-02 01:32:00* Test Item Value Reference Range Interpretation Comments Urine Urobilinogen (test code = 69210-0) 0.2 0.2-1 [facility] Awtrmvrjq0332-03-79 01:32:00* Test Item Value Reference Range Interpretation Comments Urine Bilirubin (test code = 1978-6) NEGATIVE NEGATIVE [facility] Ohkqh3624-54-74 01:32:00* Test Item Value Reference Range Interpretation Comments Urine Blood (test code = 41580-2) 4+ NEGATIVE [facility] VFM4765-77-19 01:32:00* Test Item Value Reference Range Interpretation Comments Urine WBC (test code = 5821-4) >50 0-5 [facility] UPH1948-33-40 01:32:00* Test Item Value Reference Range Interpretation Comments Urine RBC (test code = 94315-1) 21-50 0-5 [facility] Nbvpxvvf3441-80-65 01:32:00* Test Item Value Reference Range Interpretation Comments Urine Bacteria (test code = 68851-1) MANY NONE [facility] Epithelial Tdjck3117-99-89 01:32:00 * Test Item Value Reference Range Interpretation Comments Urine Epithelial Cells (test code = 58508-0) RARE NONE [facility]Influ[facility] Virus Types A,B Antigen 2018-05-04 01:16:00* Test Item Value Reference Range Interpretation Comments Influenza Virus Types A,B Antigen (test code = 82183-0) NEGATIVE [facility]GATIVE [facility]Group A Streptococcus Sjvmdz1956-84-02 01:16:00* Test Item Value Reference Range Interpretation Comments Group A Streptococcus Screen (test code = 25504-1) NEGATIVE NEG ATIVE [facility]Influ[facility] A,B Antigen 2018-05-04 01:16:00* Test Item Value Reference Range Interpretation Comments Influenza Virus Types A,B Antigen (test code = 67411-8) NEGATIVE [facility]GATIVE [facility]Group A Streptococcus Kjdbse6276-37-44 01:16:00* Test Item Value Reference Range Interpretation Comments Group A Streptococcus Screen (test code = 32687-2) NEGATIVE NEG ATIVE [facility]In[facility] A,B Antigen 2018-05-04 01:16:00* Test Item Value Reference Range Interpretation Comments Influenza Virus Types A,B Antigen (test code = 20289-0) NEGATIVE NEGATIVE [facility] A Streptococcus Rydjoj8970-16-45 01:16:00* Test Item Value Reference Range Interpretation Comments Group A Streptococcus Screen (test code = 29143-1) NEGATIVE [facility]G ATIVE [facility] A,B Antigen 2018-05-04 01:16:00* Test Item Value Reference Range Interpretation Comments Influenza Virus Types A,B Antigen (test code = 74981-6) NEGATIVE NEGATIVE [facility] A Streptococcus Elwmti0605-55-43 01:16:00* Test Item Value Reference Range Interpretation Comments Group A Streptococcus Screen (test code = 88166-2) NE[facility] NortheastInfluenza Virus Types A,B Antigen 2018-05-04 01:16:00* Test Item Value Reference Range Interpretation Comments Influenza Virus Types A,B Antigen (test code = 50858-5) NEGATIVE NEGATIVE [facility] A Streptococcus Ovqxnb9364-16-66 01:16:00* Test Item Value Reference Range Interpretation Comments Group A Streptococcus Screen (test code = 28978-8) NEGATIVE [facility]In[facility] Virus Types A,B Antigen 2018-05-04 01:16:00* Test Item Value Reference Range Interpretation Comments Influenza Virus Types A,B Antigen (test code = 73151-3) NEGATIVE NEGATIVE [facility] A Streptococcus Qgrlly4214-47-61 01:16:00* Test Item Value Reference Range Interpretation Comments Group A Streptococcus Screen (test code = 17302-3) NEGATIVE NEG ATIVE [facility] [id number] 18:18:00 [facility] [address] [address] Patient Name: MANJIT LUO MR #: [id number] : 981 Age/Sex: 37/M Req #: [id number] Adm Physician: Ordered by: NORY LEYVA SENIOR SQL DEVELOPER Report #: [id number] Location: ER Room/Bed: Procedure: 0311-[address]/CT [...] 6:38 PM Dictated By: ISMA FATIMA MD [facility] Signed By: ISMA FATIMA MD on 05/03/181837 Transcribed By: TIFFANY on 05/03/181837 COPY TO: NORY LEYVA SENIOR SQL DEVELOPER CHEST SINGLE (NOT PORTABLE)2018-05-03 16:44:[address] [address] Patient Name: MANJIT LUO MR #: [id number] : 1980 Age/Sex: 37/M Req #: [id number] Adm Physician: Ordered by: NORY LEYVA SENIOR SQL DEVELOPER Report #: [id number] Location: ER Room/Bed: Procedure: 0311-007 2 DX/CHEST [...] 05/03/181644 COPY TO: NORY LEYVA NP Amylase Oelzu2731-92-09 15:32:00* Test Item Value Reference Range Interpretation Comments Amylase Level (test code = 1798-8) 62 [facility]Lipase2019-03-11 15:32:00* Test Item Value Reference Range Interpretation Comments Lipase (test code = 3040-3) [facility]Am[facility] Inolb6307-29-46 15:32:00* Test Item Value Reference Range Interpretation Comments Amylase Level (test code = 1798-8) 62 [facility] NortheastLipase2019-03-11 15:32:00* Test Item Value Reference Range Interpretation Comments Lipase (test code = 3040-3) [facility]Am[facility] Pkapz0273-39-64 15:32:00* Test Item Value Reference Range Interpretation Comments Amylase Level (test code = 1798-8) 62 125 [facility] NortheastLipase2019-03-11 15:32:00* Test Item Value Reference Range Interpretation Comments Lipase (test code = 3040-3) [facility]Am[facility] Doqst5892-56-49 15:32:00* Test Item Value Reference Range Interpretation Comments Amylase Level (test code = 1798-8) 62 -125 [facility] NortheastLipase2019-03-11 15:32:00* Test Item Value Reference Range Interpretation Comments Lipase (test code = 3040-3) 14 [facility] NortheastAm[facility] Pyphc4619-85-85 15:32:00* Test Item Value Reference Range Interpretation Comments Amylase Level (test code = 1798-8) 62 125 [facility] NortheastLipase2019-03-11 15:32:00* Test Item Value Reference Range Interpretation Comments Lipase (test code = 3040-3) 14 [facility] NortheastAmylase Tblam4335-32-85 15:32:00* Test Item Value Reference Range Interpretation Comments Amylase Level (test code = 1798-8) 62 -125 [facility] NortheastLipase2019-03-11 15:32:00* Test Item Value Reference Range Interpretation Comments Lip[facility] (test code = 3040-3) [facility] Xjmpsqg3932-12-75 01:39:00* Test Item Value Reference Range Interpretation Comments Blood Culture (test code = 65946433) NO GROWTH AFTER 5 DAYS, FINAL REPORT [facility] NortheastBedside Lrhxokn1300-79-65 08:10:00* Test Item Value Reference Range Interpretation Comments Bedside Glucose (test code = 48414-7) 190 70-120 H Meter ID: [id number] [facility] NortheastUrine Culture 2017-09-01 06:38:00* Test Item Value Reference Range Interpretation Comments Urine Culture (test code = 630-4) Organism: PSEUDOMONAS AERUGINOSA [facility] NortheastUrine Appvugo4161-37-24 06:38:00* Test Item Value Reference Range Interpretation Comments Urine Culture (test code = 630-4) Organism: PSEUDOMONAS AERUGINOSA [facility]Urine Emijthc9981-18-28 06:38:00* Test Item Value Reference Range Interpretation Comments Urine Culture (test code = 630-4) Organism: PSEUDOMONAS AERUGINOSA [facility] Sahvpvy6032-00-05 01:39:00* Test Item Value Reference Range Interpretation Comments Blood Culture (test code = 90245126) NO GROWTH AFTER 72 HOURS [facility] Ududq8306-36-10 05:13:00* Test Item Value Reference Range Interpretation Comments Sodium Level (test code = 2951-2) 136 136-145 [facility] NortheastPotassium Qylgw6518-50-86 05:13:00* Test Item Value Reference Range Interpretation Comments Potassium Level (test code = 2823-3) 4.7 3.5-5.1 [facility] NortheastChloride Wcvxd7918-00-84 05:13:00* Test Item Value Reference Range Interpretation Comments Chloride Level (test code = 2075-0) 109 98-107 H [facility] NortheastCarbon Dioxide Gqitw1155-00-01 05:13:00* Test Item Value Reference Range Interpretation Comments Carbon Dioxide Level (test code = 2028-9) 20 22-29 L [facility] NortheastAnion Gjh5997-04-32 05:13:00* Test Item Value Reference Range Interpretation Comments Anion Gap (test code = 02725-7) 11.7 8-16 [facility] NortheastBlood Urea Jlipstqw7486-49-39 05:13:00* Test Item Value Reference Range Interpretation Comments Blood Urea Nitrogen (test code = 3094-0) 20 7-26 [facility] NortheastCreatinine2018-07-09 05:13:00* Test Item Value Reference Range Interpretation Comments Creatinine (test code = 2160-0) 1.79 0.72-1.25 H [facility] NortheastBUN/Creatinine Ihnuv5136-44-53 05:13:00* Test Item Value Reference Range Interpretation Comments BUN/Creatinine Ratio (test code = 3097-3) 11 6-25 [facility] NortheastEstimat Glomerular Filtration Rate 2017-08-31 05:13:00* Test Item Value Reference Range Interpretation Comments Estimat Glomerular Filtration Rate (test code = 45860-4) 43 >60 L Ranges were taken from the National Kidney Disease Education Program and the [facility] Kidney Foundation literature.Reference ranges:60 or greater: Hldwvf61-77 ( for 3 consecutive months): Chronic kidney disease 15 or less: Kidney failureMethodist Hospital NortheastGlucose Iarns1519-54-98 05:13:00* Test Item Value Reference Range Interpretation Comments Glucose Level (test code = ZJF4749) 165 74-118 H [facility] NortheastCalcium Lrohb1023-93-34 05:13:00* Test Item Value Reference Range Interpretation Comments Calcium Level (test code = 50144-7) 8.2 8.4-10.2 L [facility] NortheastTotal Obehrcsnt0593-39-58 05:11:00* Test Item Value Reference Range Interpretation [...] (ALT/SGPT) (test code = 1742-6) 40 0-55 [facility] Rdwezwb9172-67-11 05:11:00* Test Item Value Reference Range Interpretation Comments Total Protein (test code = 2885-2) 7.4 6.5-8.1 [facility] NortheastAlbumin2018-07-08 05:11:00* Test Item Value Reference Range Interpretation Comments Albumin (test code = 1751-7) 2.8 3.5-5.0 L [facility] NortheastGlobulin2018-07-08 05:11:00* Test Item Value Reference Range Interpretation Comments Globulin (test code = 70904-3) 4.6 2.3-3.5 H [facility] NortheastAlbumin/Globulin Yrkqg8759-81-80 05:11:00 * Test Item Value Reference Range Interpretation Comments Albumin/Globulin Ratio (test code = 1759-0) 0.6 0.8-2.0 L [facility] NortheastAlkaline Qtmsoyuwjwg1442-70-68 05:11:00* Test Item Value Reference Range Interpretation Comments Alkaline Phosphatase (test code = 6768-6) 234 40-150 H [facility] NortheastWhite Blood Waixw6573-71-04 04:54:00* Test Item Value Reference Range Interpretation Comments White Blood Count (test code = 6690-2) 5.33 4.8-10.8 [facility] NortheastRed Blood Qlyth6082-75-94 04:54:00* Test Item Value Reference Range Interpretation Comments Red Blood Count (test code = 789-8) 3.61 4.3-5.7 L [facility] NortheastHemoglobin2018-07-08 04:54:00* Test Item Value Reference Range Interpretation Comments Hemoglobin (test code = 74609-5) 9.4 14.0-18.0 L [facility] NortheastHematocrit2018-07-08 04:54:00* Test Item Value Reference Range Interpretation Comments Hematocrit (test code = 4544-3) 29.6 38.2-49.6 L [facility] NortheastMean Corpuscular Exqrte9820-85-97 04:54:00* Test Item Value Reference Range Interpretation Comments Mean Corpuscular Volume (test code = 787-2) 82.0 81-99 [facility] NortheastMean Corpuscular Xrlokivvta3860-05-29 04:54:00* Test Item Value Reference Range Interpretation Comments Mean Corpuscular Hemoglobin (test code = 785-6) 26.0 28-32 L [facility] NortheastMean Corpuscular Hemoglobin Concent 2017-08-30 04:54:00* Test Item Value Reference Range Interpretation Comments Mean Corpuscular Hemoglobin Concent (test code = 786-4) 31.8 31-35 [facility] NortheastRed Cell Distribution Fdtxa9380-05-05 04:54:00* Test Item Value Reference Range Interpretation Comments Red Cell Distribution Width (test code = 61500-4) 16.5 11.7 -14.4 H [facility] NortheastPlatelet Curka4053-36-73 04:54:00* Test Item Value Reference Range Interpretation Comments Platelet Count (test code = 777-3) 115 140-360 L [facility] NortheastNeutrophils (%) (Auto)2017-08-30 04:54:00 * Test Item Value Reference Range Interpretation Comments Neutrophils (%) (Auto) (test code = 06312-8) 73.6 38.7-80.0 [facility] NortheastLymphocytes (%) (Auto)2017-08-30 [...] Comments Lymphocytes # (Auto) (test code = 14609-6) 0.7 1.0-3.2 L [facility] NortheastMonocytes # [...] (auto) 0.02 0-0.1 [facility] NortheastLactic Acid Jawrr7438-83-37 02:07:00* Test Item Value Reference Range Interpretation Comments Lactic Acid Level (test code = Lactic Acid Level) 6.9 4.5- 19.8 [facility] NortheastLactic Acid Yvjrf2635-39-59 02:07:00* Test Item Value Reference Range Interpretation Comments Lactic Acid Level (test code = Lactic Acid Level) 6.9 4.5- 19.8 [facility] NortheastLactic Acid Qdbou7815-80-47 02:07:00* Test Item Value Reference Range Interpretation Comments Lactic Acid Level (test code = Lactic Acid Level) 6.9 4.5- 19.8 [facility] NortheastUrine Fwyov5565-36-14 01:57:00* Test Item Value Reference Range Interpretation Comments Urine Color (test code = 5778-6) RED YELLOW H [facility] NortheastUrine Zqgxont7609-48-18 01:57:00* Test Item Value Reference Range Interpretation Comments Urine Clarity (test code = 18571-1) CLOUDY CLEAR H [facility] NortheastUrine Specific Irzktne8317-84-07 01:57:00 * Test Item Value Reference Range Interpretation Comments Urine Specific Clark (test code = 5811-5) 1.020 1.010-1.02 5 [facility] NortheastUrine rP7157-14-91 01:57:00* Test Item Value Reference Range Interpretation Comments Urine pH (test code = 82635-0) 6 5-7 [facility] Leukocyte Owuvkuib8628-00-90 01:57:00* Test Item Value Reference Range Interpretation Comments Urine Leukocyte Esterase (test code = 5799-2) 2+ NEGATIVE H [facility] Vqveiby2142-87-50 01:57:00* Test Item Value Reference Range Interpretation Comments Urine Nitrite (test code = 05822-4) NEGATIVE NEGATIVE [facility] Wthucbo5127-57-83 01:57:00* Test Item Value Reference Range Interpretation Comments Urine Protein (test code = 5804-0) 3+ NEGATIVE H [facility] Glucose (UA)2017-08-29 01:57:00* Test Item Value Reference Range Interpretation Comments Urine Glucose (UA) (test code = 2349-9) NEGATIVE NEGATIVE [facility] Dgvqpeo4520-86-79 01:57:00* Test Item Value Reference Range Interpretation Comments Urine Ketones (test code = 91382-9) NEGATIVE NEGATIVE [facility] Averuzrcdbhw6096-91-65 01:57:00* Test Item Value Reference Range Interpretation Comments Urine Urobilinogen (test code = 38497-7) 0.2 0.2-1 [facility] Qmiecgafj3106-74-34 01:57:00* Test Item Value Reference Range Interpretation Comments Urine Bilirubin (test code = 1978-6) 1+ NEGATIVE H Confirmatory test currently unavailable. False positive results may occur.[facility] Frpsa7947-30-11 01:57:00* Test Item Value Reference Range Interpretation Comments Urine Blood (test code = 70367-6) 3+ NEGATIVE H [facility] DDC3949-04-13 01:57:00* Test Item Value Reference Range Interpretation Comments Urine WBC (test code = 5821-4) 50- 0-5 H [facility] NortheastU[facility] YFF4709-52-65 01:57:00* Test Item Value Reference Range Interpretation Comments Urine RBC (test code = 91784-3) 50- 0-5 H [facility] NortheastUrine Dbxdsxwb9766-79-86 01:57:00* Test Item Value Reference Range Interpretation Comments Urine Bacteria (test code = 29217-9) FEW NONE [facility] NortheastU[facility] Epithelial Ymgyz5924-31-43 01:57:00 * Test Item Value Reference Range Interpretation Comments Urine Epithelial Cells (test code = 60716-5) RARE NONE [facility] NortheastCHEST SINGLE (PORTABLE)2017-08-29 01:52:00 [facility] [address] [address] Patient Name: MANJIT LUO MR #: [id number] : 1980 Age/Sex: 37/M Req #: [id number] Adm Physician: Ordered by: MARIELLE MARSH MD Report #: [id number] Location: ER Room/Bed: Procedure: [id number] DX/CHEST SINGLE (ALONDRA BLE) Exam Date: 08/29/17 [...] TISSUES: No acute findings. IMPRESSION: No acute thoraci c abnormality. Signed by: Dr. Cheikh Beltran M.D. on 08/29/2017 1:5 3 AM Dictated By: CHEIKH BELTRAN MD 2 Transcribed By: TIFFANY on 08/29/17152 COPY TO: MARIELLE MARSH MD Magnesium Cjbtt4882-22-78 00:45:00* Test Item Value Reference Range Interpretation Comments Magnesium Level (test code = 45982-7) 1.3 1.3-2.1 [facility] [place] [address] [address] Patient Name: MANJIT LUO MR #: [id number] : 1980 Age/Sex: 36/M Req #: [id number] Adm Physician: Ordered by: MARGAUX HILLS MD Report #: [id number] Location: ER Room/Bed: Procedure: [id number] CT/CT ABDOMEN/PELVIS WO Exam Date: 01/25/17 Exam [...] 1.6 cm in diameter throughout with mild increas e in wall thickening anteriorly. LYMPH NODES: No [...] AM Dictated By: JOSE M GONSALVES MD Electronicall y Signed By: JOSE M GONSALVES MD on 01/25/17134 Transcribed By: TIFFANY mendez 01/25/17134 COPY TO: MARGAUX HILLS MD
[2020-01-16] MEDS ORDERED: ACETAMINOPHEN 1000 MG/100 ML 100 ML IV ONE (17:34)
[2020-01-16] MEDS ORDERED: MORPHINE SULFATE 1 MG/ML 30ML PCA ONE (17:57)
[2020-01-16] MEDS: MORPHINE SULFATE 1 MG/ML 30ML PCA IV PRN (18:15)
[2020-01-16] MEDS ORDERED: ONDANSETRON HCL INJ 2MG/ML 2ML 2 MG/ML VIAL ONE (18:18)
[2020-01-16 19:00] VITALS: BP 101/76
[2020-01-16 19:25] LABS: BASOPHILS % 0.3 % (0.0-1.0); EOSINOPHILS # (AUTO) 0.1 (0.0-0.4); HEMATOCRIT 30.2 % (38.2-49.6); HEMOGLOBIN 9.5 g/dL (14.0-18.0); LYMPHOCYTES % 13.2 % (18.0-39.1); MEAN CORPUSCULAR HEMOGLOBIN 25.3 pg (28-32); MEAN CORPUSCULAR HGB CONC 31.5 g/dL (31-35); MEAN CORPUSCULAR VOLUME 80.3 fL (81-99); MONOCYTES # (AUTO) 0.4 (0.2-0.8); MONOCYTES % 5.1 % (4.4-11.3); NEUTROPHILS # (AUTO) 5.8 (2.1-6.9); NEUTROPHILS % 79.8 % (38.7-80.0); PLATELET COUNT 96 x10e3/uL (140-360); RED BLOOD COUNT 3.76 x10e6/uL (4.3-5.7); RED CELL DISTRIBUTION WIDTH 16.3 % (11.7-14.4)
[2020-01-16 19:38] LABS: ANION GAP 13.6 mmol/L (8-16); CREATININE, SERUM 7.03 mg/dL (0.72-1.25); POTASSIUM 3.6 mmol/L (3.5-5.1)
[2020-01-16 20:00] VITALS: BP 101/76
[2020-01-16 21:27] VITALS: BP 101/76
[2020-01-16] MEDS: SODIUM CHLORIDE 0.9% 250ML IRRIG IR SCH (22:00)
--- NOTE | 2020-01-16 22:13 | NUR ---
Dr. Potts called 2 times, waiting call back.
[2020-01-16] MEDS: SODIUM CHLORIDE 0.9% 1000ML 1,000 ML IV SCH (22:24)
--- NOTE | 2020-01-16 23:13 | Operative Report ---
DATE OF PROCEDURE: 01/16/2020 SURGEON: Castro Jalloh MD PREOPERATIVE DIAGNOSES: 1. Chronic urinary retention. 2. Suprapubic cystostomy. 3. Need for cystorrhaphy. POSTOPERATIVE DIAGNOSES: 1. Chronic urinary retention. 2. Suprapubic cystostomy. 3. Need for cystorrhaphy. OPERATIONS PERFORMED: 1. Excision of suprapubic tract. 2. Cystorrhaphy. 3. Left ureteroileal conduit (complicated). 4. Assisting Dr. Fitzgerald with excision of peritoneal dialysis catheter. RADIO DISPATCHER: Dr. Valdemar Jalloh. ANESTHESIA: General. COMPLICATIONS: None. CLINICAL SUMMARY: Sukh Lozano is an extremely complicated 39-year-old man with a complex medical history. The patient has renal failure and has been now on peritoneal dialysis. A hemodialysis catheter was placed in preparation for this procedure. 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 The patient also has neurogenic bladder and has chronic urinary retention, that has been managed with a suprapubic cystostomy, which has been changed on monthly basis. The patient would like to have a renal transplant, however, he does not have an adequately functional bladder in order to accept a new kidney. The patient also has had recurrent complicated urinary tract infections associated with his suprapubic cystostomy. After lengthy discussion with the implementation coordinator at the [facility]. The plan was brought forth to perform an ileal conduit urinary diversion, so that the ileal conduit may receive the future transplanted kidney, also this would allow us to remove the foreign body, suprapubic cystostomy, and decrease issues with urinary tract infections. The patient's surgical status is further complicated with the fact that he is a Zoroastrianism and would rather than receive blood products. Dr. Karimi has optimized the patient's hematological status and has been able to achieve a hemoglobin level of 9.5 in this complex patient in preparation for this procedure. The patient is aware of the risks of bleeding, infection, injury to adjacent structures, due to bleeding and other potential causes, need for additional procedures, and he elected to proceed. He also understands the peritoneal dialysis may not be an option in the future. He understood all these risks and elected to proceed. OPERATIVE PROCEDURE IN DETAIL: Informed consent was verified. Sukh Lozano was properly identified, taken to operating room, placed on the operating table in supine position, and anesthesia was uneventfully begun. The patient's abdomen and genitalia were shaved, prepared, and draped in usual sterile fashion. A midline incision was made from just above the umbilicus to the level of the umbilicus down to the suprapubic cystostomy site. We circumscribed the suprapubic cystostomy site, followed the tract, where we incised the fascia around tract and followed the tract to the anterior wall of the bladder. We then circumscribed the bladder and removed the suprapubic cystostomy tract. We then utilized 2-0 chromic suture to perform cystorrhaphy in 2 layers, 2nd layer being an imbricating layer and close this hole in the bladder. We then entered the peritoneal cavity. The bowel had severe changes of inflammation due to the peritoneal dialysis potential recurrent peritonitis, adhesions were noted and some of these were taken down. Dr. Fitzgerald scrubbed in to remove the peritoneal dialysis catheter which was previously placed. We entered the left retroperitoneum. We identified the patient's large dilated ureter. We dissected free and mobilized down to the pelvis. We ligated the distal stump and divided. We then mobilized the cecum and entered the right retroperitoneum. We brought the left ureter into the right lower quadrant through a window posterior to the sigmoid mesentery. We then identified a piece of bowel in the distal small bowel. We harvested a loop of bowel and we reconstituted the GI tract with a stapled anastomosis. The mesenteric window was closed to avoid internal herniation. We then completed an end-to-side ureteroileal anastomosis over a single J stent. We utilized ten 4-0 Vicryl sutures in interrupted fashion to perform the anastomosis. The stent was further secured to the ileal conduit with 4-0 chromic suture. We then matured a Rachel stoma, utilized 2-0 Vicryl sutures to secure the ileal loop to the fascia. The cruciate incision was made in the fascia in preparation of this. We then the matured the stoma with 3-0 chromic suture. We placed the stomal stent through the stoma. We placed a Mike drain through a separate stab incision, secured it to skin with suture. Copious irrigation was performed. The patient's incision was approximated utilizing a heavy Vicryl suture to approximate the rectus muscle. The fascia was brought in with heavy Vicryl suture in interrupted jfacuz-du-ddhrc fashion. The skin was approximated with skin araceli. Following closure, a 20-Upper Sorbian Barcenas catheter was placed in the patient's bladder and the bladder was irrigated to and fro. Dressings were applied and the patient was then uneventfully reversed from anesthesia and taken to recovery room in stable condition. There were no complications to the procedure. The patient tolerated the procedure well. Sponge, needle, and instrument counts were correct x2 at the end of the case. There was mild oozing noted throughout the case. No specific bleeders were left unchecked. Hemoclips and electrocautery were utilized judiciously. We will proceed with managing the patient's postoperative care in multidisciplinary approach. A nasogastric tube will be left in place until there is excellent bowel function. The nasogastric positioning was verified intraoperatively. Castro Jalloh MD [place]/MODL /[id number] cc: MD Donald Pisano MD
--- NOTE | 2020-01-16 23:27 | NUR ---
called and talked to Dr Vidal about pt c/o nausea, informed md about calcium level low 6.0. MD stated would look into it
[2020-01-16] MEDS ORDERED: HYDRALAZINE HCL 20 MG/ML VIAL IV PRN (23:30)
[2020-01-16] MEDS ORDERED: CALCIUM GLUCONATE 10% INJ 9.3 MEQ in SODIUM CHLORIDE 0.9% 100 ML 100 ML IV ONE (23:30)
[2020-01-16] MEDS ORDERED: ACETAMINOPHEN 325 MG TAB PO PRN (23:30)
[2020-01-16] MEDS ORDERED: DEXTROSE 50% SYRINGE 50 ML IV PRN (23:30)
[2020-01-16] MEDS ORDERED: BENZONATATE 100 MG CAP PO PRN (23:30)
[2020-01-16] MEDS ORDERED: ALBUTEROL/IPRATROPIUM 3 ML NEB NEB PRN (23:30)
[2020-01-16] MEDS ORDERED: POLYETHYLENE GLYCOL 3350 17 GM PACK PO PRN (23:30)
[2020-01-16] MEDS ORDERED: DOCUSATE SODIUM 100 MG CAP PO PRN (23:30)
[2020-01-17] VITALS (8 sets, daily range): BP systolic 85–111; BP diastolic 50–70
[2020-01-17] MEDS: ONDANSETRON HCL INJ 2MG/ML 2ML 2 MG/ML VIAL IV PRN ×3 (00:05→21:13)
[2020-01-17] MEDS ORDERED: CALCIUM GLUCONATE 10% INJ 0.465 MEQ/ML VIAL ONE (00:50)
[2020-01-17] MEDS ORDERED: SODIUM CHLORIDE 0.9% 100 ML ONE (00:51)
[2020-01-17] MEDS: SODIUM CHLORIDE 0.9% 250ML IRRIG IR SCH ×6 (01:02→21:03)
[2020-01-17] MEDS: MORPHINE SULFATE 1 MG/ML 30ML PCA IV PRN (02:52)
[2020-01-17 06:53] LABS: BASOPHILS % 0.3 % (0.0-1.0); EOSINOPHILS # (AUTO) 0.1 (0.0-0.4); EOSINOPHILS % 1.8 % (0.0-6.0); HEMATOCRIT 30.4 % (38.2-49.6); HEMOGLOBIN 9.5 g/dL (14.0-18.0); LYMPHOCYTES # (AUTO) 0.8 (1.0-3.2); LYMPHOCYTES % 11.5 % (18.0-39.1); MEAN CORPUSCULAR HEMOGLOBIN 25.3 pg (28-32); MEAN CORPUSCULAR HGB CONC 31.3 g/dL (31-35); MEAN CORPUSCULAR VOLUME 80.9 fL (81-99); MONOCYTES # (AUTO) 0.4 (0.2-0.8); MONOCYTES % 5.9 % (4.4-11.3); NEUTROPHILS # (AUTO) 5.4 (2.1-6.9); NEUTROPHILS % 79.9 % (38.7-80.0); PLATELET COUNT 117 x10e3/uL (140-360); RED BLOOD COUNT 3.76 x10e6/uL (4.3-5.7)
[2020-01-17 07:13] LABS: ANION GAP 13.4 mmol/L (8-16); CREATININE, SERUM 7.68 mg/dL (0.72-1.25); POTASSIUM 4.4 mmol/L (3.5-5.1)
[2020-01-17] MEDS: PANTOPRAZOLE SOD 40 MG TABEC PO SCH (07:30)
[2020-01-17 07:35] LABS: CALCIUM 6.1 mg/dL (8.4-10.2)
--- NOTE | 2020-01-17 07:44 | NUR ---
Low calcium communicated to Dr. Vidal.
[2020-01-17] MEDS ORDERED: PROMETHAZINE 25MG/ NS 50ML (IV) IV PRN (07:45)
--- NOTE | 2020-01-17 09:19 | NUR ---
Called to follow patient for dialysis and low ca++. Off call to Dr. Osorio. Office will notify
[2020-01-17] MEDS ORDERED: CALCIUM CHLORIDE 13.6 MEQ in SODIUM CHLORIDE 0.9% 100 ML 100 ML IV ONE (10:00)
--- NOTE | 2020-01-17 10:16 | NUR ---
Dialysis notified of patients need to have dialysis today per MD. Vo @ [phone]
[2020-01-17] MEDS: CALCITRIOL 0.25 MCG CAP PO SCH (11:00)
[2020-01-17] MEDS ORDERED: CALCIUM GLUCONATE 10% INJ 9.3 MEQ in SODIUM CHLORIDE 0.9% 100 ML 100 ML IV ONE (11:00)
[2020-01-17] MEDS ORDERED: MORPHINE SULFATE 1 MG/ML 30ML PCA IV PRN (13:30)
[2020-01-17] MEDS ORDERED: SODIUM CHLORIDE 0.9% 1000ML 2,000 ML ONE (14:08)
[2020-01-17] MEDS: SODIUM CHLORIDE 0.9% 1000ML 1,000 ML IV SCH (14:55)
[2020-01-17] MEDS: CALCIUM CARBONATE 500 MG CHEWABLE TABS PO SCH ×2 (14:56→17:51)
--- NOTE | 2020-01-17 16:02 | Consultation ---
DATE OF CONSULTATION: Initial Nephrology Consultation Report REASON FOR CONSULTATION: Dialysis, renal failure. HISTORY OF PRESENT ILLNESS: Mr. Sukh Lozano is a 39-year-old male, who is very well known to our practice. He is an ESRD patient of Dr. Karimi. The patient is here in the hospital. Today, he underwent a placement of a left ureteroileal conduit and also the removal of the peritoneal dialysis catheter with placement of subsequent tunneled hemodialysis catheter in the right chest wall area. For a long time, he has a neurogenic bladder and he has had multiple urinary tract infections in the past. At the present time, the patient has no complaints. He is somewhat drowsy after the surgery. PAST MEDICAL HISTORY: The patient is a Amish, end-stage renal disease. The patient has had multiple urinary tract infections. He has had a suprapubic cystostomy placed and new end-stage renal disease. PAST SURGICAL HISTORY: The patient has undergone a right nephrectomy in the past secondary to ureteral strictures and hydronephrosis. MEDICATIONS: As per MAR. REVIEW OF SYSTEMS: As per HPI. PHYSICAL EXAMINATION: VITAL SIGNS: Blood pressure is 88/51, pulse is 88, and respirations 16. GENERAL: The patient is somewhat drowsy and groggy from anesthesia. HEENT: No increased JVD. The patient has a tunneled dialysis catheter in the right chest wall area. CARDIOVASCULAR: Regular rate and rhythm. LUNGS: Clear to auscultation bilaterally. ABDOMEN: The patient has ileal conduit in place. Also, the scar from the removal of the peritoneal dialysis catheter is in place. Also, the patient has a Barcenas in place. EXTREMITIES: The patient has SCDs in place on the legs. LABORATORY RESULTS: Hemoglobin and hematocrit are 9.5 and 30.4 respectively. Sodium 137, potassium 4.4, chloride 108, bicarbonate 20, BUN and creatinine 47 and 7.6 respectively. Calcium is 6.1. IMPRESSION/PLAN: 1. Chronic kidney disease, stage 5. 2. Status post creation of an ileal conduit. 3. Status post removal of peritoneal dialysis catheter. 4. Hypocalcemia. 5. Amish. PLAN: The patient is going to undergo dialysis today via tunneled dialysis catheter. We will use a 3 potassium bath and 2.5 calcium bath. Today, I will probably not ultrafilter any fluids just because he is already hypotensive. His calcium is low. I have ordered Tums 3 tablets p.o. 3 times a day for a total of 9 tablets. Also, I am going to put him on calcitriol 0.25 mcg once a day. I will check a PTH and his chem 7 tomorrow. die out worker and sample case porter will be consulted to place him in the hemodialysis unit [facility] in [place]. I will follow the patient with you. Thank you, Dr. Potts, for allowing me to participate in the care of this patient with you. Ather MD LAMAR Delacruz/NOREEN /[id number]
[2020-01-17] MEDS ORDERED: ALBUMIN 25% 12.5GM 0.25 GM/ML BTL IV PRN (16:15)
[2020-01-17] MEDS ORDERED: SODIUM CHLORIDE 0.9% 1000ML 2,000 ML IV PRN (16:15)
[2020-01-17] MEDS ORDERED: HEPARIN SOD (PORCINE) 1000 UNIT/ML SDV IV PRN (16:15)
[2020-01-18] VITALS (7 sets, daily range): BP systolic 113–160; BP diastolic 69–93
[2020-01-18] MEDS: SODIUM CHLORIDE 0.9% 250ML IRRIG IR SCH ×6 (03:45→17:54)
[2020-01-18] MEDS: ONDANSETRON HCL INJ 2MG/ML 2ML 2 MG/ML VIAL IV PRN (03:50)
--- NOTE | 2020-01-18 04:19 | History and Physical ---
CHIEF COMPLAINT: Neurogenic bladder status post suprapubic cystostomy with left ureteroileal conduit. HISTORY OF PRESENT ILLNESS: This is a 39-year-old male with chronic urinary retention, ESRD, now on HD secondary to postobstructive nephropathy, came in for an elective procedure performed on 01/16/2020, underwent status post excision of the suprapubic tract, cystography, left ureteroileal conduit complicated with an underlying excision of the peritoneal dialysis catheter all performed by Urology. The patient did well postoperatively with no complaints. The patient has a PD catheter in place. He has a tunneled HD catheter in preparation for PD and . The patient is seen and evaluated at bedside on the medical floor. Currently, he was doing well. He was alert, awake, and oriented on examination with no complaints. The patient . Plan of care discussed with nursing staff. REVIEW OF SYSTEMS: Pertinent positives: Chronic urinary retention. The rest of 14-point review of systems have been reviewed with the patient and negative. ALLERGIES: IODINE CONTRAST MEDIA, P.O. CONTRAST. HOME MEDICATIONS: Calcitriol, calcium and vitamin D3, Coreg, famotidine, gabapentin, insulin, magnesium, Reglan, sodium chloride, nifedipine. PAST MEDICAL HISTORY: He has postobstructive nephropathy, neurogenic bladder, CKD 5, now end-stage renal disease. PAST SURGICAL HISTORY: Has a dialysis catheter inserted, has a PD catheter inserted as well as. FAMILY HISTORY: Hypertension, diabetes. SOCIAL HISTORY: No drugs. No alcohol. Does not smoke. Good social support. PHYSICAL EXAMINATION: VITAL SIGNS: Temperature is 98.4, pulse is 90, respiratory rate 20, blood pressure 111/66, pulse ox 96% on room air. GENERAL: Not in acute distress. Alert and oriented x3. Cooperative on examination. PULMONARY: Clear to auscultation bilaterally. No wheezing, rales, or rhonchi. No crackles appreciated. CARDIOVASCULAR: Positive S1, S2. No murmurs, rubs, or gallops appreciated. ABDOMEN: Soft, nondistended, nontender to palpation. Bowel sounds present. MUSCULOSKELETAL: Strength 5/5 throughout. NEUROLOGICAL: Cranial nerves 2 through 12 grossly intact. SKIN: Intact. Warm to touch. Good cap refill. PSYCHIATRIC: Normal affect and mood. LABORATORY FINDINGS: Show white count 6.7, hemoglobin 9.5, hematocrit 30, platelets of 117. Coagulation; PT 15, INR 1.1, PTT 30. Chemistry; sodium 137, potassium 4.4, chloride 108, bicarb 20, anion gap of 13, BUN is 27, creatinine is 0.68, calcium was 6.1. He was given some . Magnesium is 1.6. Coronavirus not detected. Hepatitis plan is pending. MICROBIOLOGY: None. IMAGING STUDIES: Nothing new. IMPRESSION: 1. Chronic urinary retention status post excision of his suprapubic tract. 2. Cystography. 3. Left ureteroileal conduit complicated. 4. End-stage renal disease, on HD, requiring hemodialysis. PLAN: At this time, continue with postop care as per Dr. Jalloh. He is on morphine DRAWING IN MACHINE TENDER pump, which I am going to go ahead and decrease the dose. As per the nursing staff, the patient seems to be very lethargic. Get a.m. labs. Restart home medications. Continue following with recommendation by Urology. Nephrology was consulted for HD management. Hold anticoagulation for today until maybe tomorrow once he is improved from his surgery. Renal diet. Plan of care discussed with the patient and nursing. MD THOMAS Ramos/NOREEN /[id number]
[2020-01-18 06:11] LABS: BASOPHILS % 0.1 % (0.0-1.0); EOSINOPHILS # (AUTO) 0.2 (0.0-0.4); EOSINOPHILS % 1.9 % (0.0-6.0); HEMATOCRIT 29.4 % (38.2-49.6); HEMOGLOBIN 8.8 g/dL (14.0-18.0); LYMPHOCYTES # (AUTO) 0.7 (1.0-3.2); MEAN CORPUSCULAR HEMOGLOBIN 25.1 pg (28-32); MEAN CORPUSCULAR HGB CONC 29.9 g/dL (31-35); MONOCYTES # (AUTO) 0.6 (0.2-0.8); MONOCYTES % 7.2 % (4.4-11.3); NEUTROPHILS # (AUTO) 6.3 (2.1-6.9); NEUTROPHILS % 81.2 % (38.7-80.0); PLATELET COUNT 100 x10e3/uL (140-360); RED CELL DISTRIBUTION WIDTH 17.2 % (11.7-14.4)
[2020-01-18 06:39] LABS: CREATININE, SERUM 6.53 mg/dL (0.72-1.25)
[2020-01-18 06:48] LABS: CALCIUM 6.6 mg/dL (8.4-10.2)
--- NOTE | 2020-01-18 06:51 | NUR ---
Received Critical lab calcium 6.6. LM for Dr. aKrimi to call back.
[2020-01-18] MEDS: PANTOPRAZOLE SOD 40 MG TABEC PO SCH (07:30)
--- NOTE | 2020-01-18 08:06 | NUR ---
FAXED CLINICALS TO [facility] AND FILED CHOICE IN CHART
[2020-01-18] MEDS: CALCITRIOL 0.25 MCG CAP PO SCH (09:00)
[2020-01-18] MEDS: CALCIUM CARBONATE 500 MG CHEWABLE TABS PO SCH ×3 (09:00→21:00)
[2020-01-18] MEDS: SODIUM CHLORIDE 0.9% 1000ML 1,000 ML IV SCH ×2 (09:45→20:15)
--- NOTE | 2020-01-18 10:33 | Diagnostic Imaging Report ---
Exam: KUB - 2 views Indication: Neurogenic bladder Comparison: CT abdomen and pelvis of 12/19/2019 Findings: Nonobstructive bowel gas pattern. No free air. NG tube projects below the diaphragm with tip and side-port in the distal stomach. Surgical clips in the right abdomen status post right nephrectomy. Punctate calcifications throughout the upper abdomen correspond with pancreatic calcification seen on recent CT. Left internal nephroureteral stent with proximal loop overlying the left upper kidney and distal end coursing externally in the right lower abdomen. Suprapubic tube in place. Anterior abdominal surgical skin araceli. Right lower quadrant ostomy. Impression: NG tube with tip and side-port in the distal stomach. Other lines and tubes as above. Nonobstructive bowel gas pattern. No free air. Signed by: Imtiaz Manzo MD on 01/18/2020 10:29 AM
[2020-01-18] MEDS ORDERED: CALCIUM GLUCONATE 10% INJ 9.3 MEQ in SODIUM CHLORIDE 0.9% 100 ML 100 ML IV ONE ×2 (11:15→16:00)
[2020-01-18] MEDS ORDERED: BISACODYL 10 MG SUPP PR ONE (11:30)
[2020-01-18] MEDS: METOCLOPRAMIDE HCL 10 MG/2ML VIAL IV SCH ×3 (11:42→23:05)
--- NOTE | 2020-01-18 12:00 | NUR ---
Left nare NG tube removed as ordered by Dr. Haider Jalloh. Catheter tip intact, noted 10 ML greenish output on the canister.
--- NOTE | 2020-01-18 14:49 | NUR ---
SPOKE WITH [facility] FROM SN, GAVE A TENTATIVE CHAIR TIME FOR T, TH AND SAT AT 1130 AM WILL NEED THE CXR FAXED TO THEM AND A COUPLE MORE DIALYSIS NOTES.
--- NOTE | 2020-01-18 15:33 | Progress Note ---
DATE: 01/18/2020 Renal Progress Note SUBJECTIVE: Events over the past 24 hours have been noted. The patient has no chest pain. No shortness of breath. The patient is undergoing dialysis at this time. PHYSICAL EXAMINATION: VITAL SIGNS: Blood pressure 132/83, pulse 98, and respirations 16. GENERAL: The patient is in no acute distress. HEENT: No increased JVD. CARDIOVASCULAR: Regular rate and rhythm. LUNGS: Clear to auscultation bilaterally. ABDOMEN: The patient has an ileal conduit that is draining. He has scar from his PD catheter removal site. EXTREMITIES: The patient has SCDs in place. The patient has a tunneled dialysis catheter in the right chest wall area. LABORATORY RESULTS: Hemoglobin and hematocrit 8.8 and 29.4 respectively. Sodium 138, potassium 4, chloride 105, bicarbonate 21, BUN and creatinine 34 and 6.5 respectively. Calcium is 6.6. IMPRESSION/PLAN: 1. Chronic kidney disease, stage 5. 2. Status post creation of an ileal conduit. 3. Status post removal of peritoneal dialysis catheter. 4. Switched from peritoneal dialysis to hemodialysis. 5. Hypocalcemia. 6. Anemia of chronic disease. The patient right now got dialysis yesterday. We removed 2 L because tomorrow is . We are dialyzing him today even though it is [id number] because tomorrow is and it may be difficult for the dialysis nurse to come out on . He is getting dialysis right now. We will take off 500 mL. We are dialyzing with a 3 potassium, 2.5 calcium bath. He is on calcium supplementation. He is on calcium carbonate pills and also calcitriol. The patient is anemic. I will start him on Aranesp at 60 mcg a week for the anemia of chronic disease. His next dialysis can be on Thursday. The pillowcase turner are working on getting him placed at [facility] in [place], where he did continue his hemodialysis. I will probably give him one amp of calcium gluconate if he has not got it already. Ather MD LAMAR Delacruz/NOREEN /[id number]
--- NOTE | 2020-01-18 15:42 | Progress Note ---
DATE: ADDENDUM: The patient actually has been n.p.o. and so the patient has not been getting the Tums or the oral calcitriol, so the calcium is still low. The patient has an order for calcium gluconate that will be given. We cannot adjust the calcium in the dialysate, but PPN is to be started. There is some calcium in the PPN. We will check calcium level again tomorrow and supplement as needed, but for right now since he is n.p.o., he is not getting the Tums or the calcitriol. Ather MD LAMAR Delacruz/NOREEN /[id number]
[2020-01-18] MEDS: EPOETIN ALFA-EPBX 10,000 UNIT/ML VIAL SC SCH (16:53)
--- NOTE | 2020-01-18 18:16 | Diagnostic Imaging Report ---
EXAMINATION: CHEST SINGLE (PORTABLE) INDICATION: ^Rule out Tuberculosis as part of screening for out pt. HD ^[id number] ^1700 COMPARISON: 08/04/2019. FINDINGS: AP view TUBES and LINES: Dialysis catheter with distal tip projected in the right atrium. LUNGS: Lungs mildly hypoinflated. There is patchy density in the right suprahilar region, in left perihilar region. Mild prominence of the central pulmonary vasculature. PLEURA: No pleural effusion or pneumothorax. HEART AND MEDIASTINUM: The cardiomediastinal silhouette is unremarkable. BONES AND SOFT TISSUES: No acute osseous lesion. Soft tissues are unremarkable. UPPER ABDOMEN: No free air under the diaphragm. IMPRESSION: Suboptimal inspiration resulting crowding of the pulmonary vasculature versus mild urinary venous congestion. Right suprahilar patchy density may reflect asymmetric edema or infectious etiology in the proper clinical setting. Signed by: Dr. Arturo Humphrey M.D. on 01/18/2020 6:12 PM
--- NOTE | 2020-01-18 19:10 | NUR ---
Nutrition Intervention Note RD Recommendation(s) for Physician: -Recommend advancing to renal diet when medically appropriate -Recommend weaning PPN when diet is advanced Plan of Care: RD following, monitoring for tolerance and adequacy Nutrition reason for involvement: parenteral nutrition, Nutrition Risk Trigger for unsure weight loss RD Assessment (01/18/20) Pt is a 39 year old male admitted with neurogenic bladder. Pt had an NG tube to low intermittent suction, but NG tube was removed this afternoon per nursing note. Pt reported unsure weight loss upon admission and pt has various weights in chart from weight history. Pt is NPO and was started on PPN. Recommend advancing to renal diet when appropriate and weaning PPN when diet is advanced. Will continue to monitor. Principal Problems/Diagnoses: neurogenic bladder PMH: postobstructive nephropathy, neurogenic bladder, CKD 5, now end-stage renal disease. GI: soft/round/tender abdomen Skin: no pressure ulcers Labs: (01/17) Na 138, K 4.0, BUN 34, Cr 6.53, Glu 139, Ca 6.6 Meds: reglan, zofran, heparin, Tums, protonix, PPN @ 85 mL/hr, morphine, miralax, colace Ht: 73 in Wt: 218 lbs BMI: 28.8 kg/m2 IBW: 184 lbs Malnutrition Evaluation (01/18/20) The patient does not meet criteria for a specified degree of malnutrition at this time. Will re-evaluate at follow-up as appropriate. Nutrition Prescription (Diet Order): NPO PPN @ 85 mL/hr and 25 gm lipids 3x/week with custom electrolytes (provides 790 kcal and 87 g protein) Estimated Nutritional Needs: 9624-7723 calories/day (30-35 kcal/kg CBW) 119-149 g protein/day (1.2-1.5 g pro/kg CBW) Diet Adequacy: Not meeting calorie needs, Not meeting protein needs Tolerance: N/A Diet Education Needs Assessment: Diet education not indicated, patient on temporary/transition diet. Nutrition Care Level: moderate Nutrition Diagnosis: Inadequate oral intake related to decreased ability to consume sufficient energy as evidenced by insufficient energy intake from diet compared to needs (pt is NPO) Goal: Patient will meet 75-100% of estimated needs by follow up Progress: N/A Interventions: Mineral - modified diet, Recommended Modifications Monitoring/Evaluation: -Total energy intake, Total protein intake, Formula/Solution, Modified diet, Weight change Signed: Linda Ramírez RD, LD
[2020-01-18] MEDS ORDERED: DEXTROSE 10% 1,000 ML IV PRN (20:00)
[2020-01-18] MEDS: PERIPHERAL TPN FORMULA 1 BAG IV SCH (20:26)
[2020-01-19] VITALS (8 sets, daily range): BP systolic 143–204; BP diastolic 80–115
[2020-01-19] MEDS: ONDANSETRON HCL INJ 2MG/ML 2ML 2 MG/ML VIAL IV PRN ×3 (02:00→15:52)
--- NOTE | 2020-01-19 03:45 | NUR ---
SONG CATHETER IRRIGATED PER MD ORDER. SONG CARE PROVIDED VIA CASTILE SOAP WIPES.
[2020-01-19] MEDS: METOCLOPRAMIDE HCL 10 MG/2ML VIAL IV SCH ×5 (05:09→22:12)
[2020-01-19 05:25] LABS: BASOPHILS % 0.3 % (0.0-1.0); EOSINOPHILS # (AUTO) 0.2 (0.0-0.4); EOSINOPHILS % 2.7 % (0.0-6.0); HEMATOCRIT 30.8 % (38.2-49.6); HEMOGLOBIN 9.5 g/dL (14.0-18.0); LYMPHOCYTES # (AUTO) 0.9 (1.0-3.2); LYMPHOCYTES % 13.4 % (18.0-39.1); MEAN CORPUSCULAR HEMOGLOBIN 25.6 pg (28-32); MEAN CORPUSCULAR HGB CONC 30.8 g/dL (31-35); MONOCYTES # (AUTO) 0.5 (0.2-0.8); MONOCYTES % 7.7 % (4.4-11.3); NEUTROPHILS % 74.7 % (38.7-80.0); PLATELET COUNT 111 x10e3/uL (140-360); RED BLOOD COUNT 3.71 x10e6/uL (4.3-5.7); RED CELL DISTRIBUTION WIDTH 16.4 % (11.7-14.4)
[2020-01-19 05:57] LABS: ANION GAP 18.2 mmol/L (8-16); CALCIUM 7.3 mg/dL (8.4-10.2); CREATININE, SERUM 4.98 mg/dL (0.72-1.25); POTASSIUM 4.2 mmol/L (3.5-5.1)
--- NOTE | 2020-01-19 06:52 | NUR ---
UROSTOMY FOUND LEAKING. IN NEED OF REPLACEMENT. DAYSHIFT CHARGE NURSE MADE AWARE.
[2020-01-19] MEDS: PANTOPRAZOLE SOD 40 MG TABEC PO SCH (07:30)
--- NOTE | 2020-01-19 07:54 | NUR ---
REPORT GIVEN TO DAYSHIFT NURSE. ALERT AND ORIENTED. RESTING IN BED. BED LOCKED AND IN LOW POSITION. CALL LIGHT WITHIN REACH. BED ALARM ACTIVATED.
[2020-01-19] MEDS: CALCITRIOL 0.25 MCG CAP PO SCH (09:00)
[2020-01-19] MEDS: CALCIUM CARBONATE 500 MG CHEWABLE TABS PO SCH ×3 (09:00→20:04)
[2020-01-19] MEDS: SODIUM CHLORIDE 0.9% 250ML IRRIG IR SCH ×2 (10:00→22:52)
--- NOTE | 2020-01-19 13:00 | Progress Note ---
DATE: 01/18/2020 Medicine Progress Note SUBJECTIVE: The patient had some nausea and vomiting during my evaluation. He had an NG tube in place. I spoke with Urology about the plan of care. OBJECTIVE: VITAL SIGNS: He is afebrile. Normotensive. Respiratory rate is good. GENERAL: No acute distress. Alert and oriented x3. He is cooperative on examination. PULMONARY: Clear to auscultation bilaterally. No wheezing, rales or rhonchi. No crackles appreciated. CARDIOVASCULAR: Positive S1 and S2. No murmurs, rubs, or gallops appreciated. ABDOMEN: Soft, nondistended, nontender to palpation. Bowel sounds present. MUSCULOSKELETAL: Strength is 5/5 throughout. No evidence of muscle deficits on examination. SKIN: Intact. Warm to touch. Good cap refill. PSYCHIATRIC: Normal affect and mood. EXTREMITIES: No edema. Good range of motion throughout. LABORATORY DATA: CBC reviewed. Sodium 138, potassium 4, chloride 105, bicarb 21, anion gap of 16, BUN 34, creatinine 6.5, glucose is 139. Calcium is 6.6, being replaced. Microbiology none. IMAGING STUDIES: Nothing new. IMPRESSION: 1. Chronic urinary retention, status post excision of his suprapubic tract with cystography. 2. Left ureteroileal conduit, complicated. 3. End-stage renal disease, on hemodialysis. 4. Electrolyte abnormalities. 5. Nausea and vomiting. PLAN: At this time, we will follow with Urology recommendations. Continue with NG tube. Wean morphine SAP GATHERER as much as possible down until IV pushes of morphine is probably needed. He is awake, alert, and oriented on examination. As for his nausea and vomiting, schedule IV Reglan. NG tube and Barcenas management in terms of diet will be per Urology. Get a.m. labs. Monitor very closely. MD THOMAS Ramos/NOREEN /[id number]
--- NOTE | 2020-01-19 13:01 | Progress Note ---
DATE: 01/19/2020 Medicine Progress Note SUBJECTIVE: The patient today was having significant amount of vomiting and nausea. He is having some green bile emesis. No overnight events. NG tube was removed by Urology. We will discontinue ORACLE FUSION MIDDLEWARE ARCHITECT pump. PHYSICAL EXAMINATION: VITAL SIGNS: Temperature is 97.6, pulse 96, respiratory rate is 18, blood pressure was 165/80, and pulse ox 95% on room air. GENERAL: Not in acute distress, alert and oriented x3. Has some nausea, vomiting during examination. PULMONARY: Clear to auscultation bilaterally. No wheezing, rales, or rhonchi. No crackles appreciated. CARDIOVASCULAR: Positive S1, S2. No murmurs, rubs, or gallops. ABDOMEN: Soft, nondistended, nontender to palpation. Bowel sounds present. MUSCULOSKELETAL: Strength 5/5 throughout. NEUROLOGICAL: He is alert, awake, and oriented on examination. SKIN: Intact, warm to touch. Good cap refill. LABORATORY DATA: White count 6.7, hemoglobin 9.5, hematocrit 31, platelets of 111. Chemistry: Sodium 136, potassium 4.2, chloride 101, bicarb 21, anion gap of 18, BUN is 31, creatinine is 4.98. Glucose was 242, calcium was 7.3, ionized calcium is 1. Albumin 2.1. MICROBIOLOGY: None. IMAGING STUDIES: None. IMPRESSION: 1. Chronic urinary retention, status post excision of his suprapubic tract with underlying cystography. 2. Left ureteroileal conduit complicated. 3. End-stage renal disease, now on hemodialysis. 4. Nausea and vomiting with bile emesis. 5. Anemia of end-stage renal disease. 6. Secondary hyperparathyroidism. 7. Hypertension. PLAN: At this time, the patient continues to have vomiting on examination. I will go ahead and increase the Reglan to 10 mg IV t.i.d. Get a stat KUB. His NG tube was removed. If his KUB is consistent with bowel obstruction, we will go ahead and add the NG tube back in. Urology is following as well. As for his dialysis that is going to be deferred to Nephrology. Get a.m. labs. Reinitiate IV PPN for him for nutrition as he is still n.p.o. Encourage ambulation. Hold anticoagulation for today, possibly re-initiate tomorrow. Plan of care discussed with the patient and nursing staff. MD THOMAS Ramos/NOREEN /[id number]
--- NOTE | 2020-01-19 13:51 | Diagnostic Imaging Report ---
EXAM: KUB - 3 views INDICATION: Vomiting.. COMPARISON: KUB dated 01/18/2020. CT abdomen and pelvis of 12/19/2019 FINDINGS: Central venous catheter with distal tip in the right atrium. NG tube has been removed. Surgical clips in the right abdomen status post right nephrectomy. Left internal nephroureteral stent with proximal loop overlying the left upper kidney and distal end coursing externally in the right lower abdomen. Suprapubic tube in place. Anterior abdominal surgical skin araceli. Right lower quadrant ostomy. The bowel gas pattern is nonobstructive. Punctate calcifications eighth the upper abdomen correspond with pancreatic calcification seen on recent CT. IMPRESSION: Nonobstructive bowel gas pattern. Signed by: Lonny Rogers MD on 01/19/2020 1:47 PM
--- NOTE | 2020-01-19 19:47 | NUR ---
SPOKE TO MD RAMIRES. AWARE BS 299 AND BLOOD PRESSURE 204/115. NEW ORDERS RECEIVED.
[2020-01-19] MEDS ORDERED: METOPROLOL TARTRATE INJ 1 MG/ML VIAL IV PRN (20:00)
[2020-01-19] MEDS ORDERED: DEXTROSE 50% SYRINGE 50 ML IV PRN (20:00)
[2020-01-19] MEDS: PERIPHERAL TPN FORMULA 1 BAG IV SCH (20:15)
[2020-01-19] MEDS: INSULIN LISPRO 100 UNIT/1 ML 3ML VIAL SQ SCH (20:38)
[2020-01-19] MEDS: METOPROLOL TARTRATE INJ 1 MG/ML VIAL IV SCH (20:40)
--- NOTE | 2020-01-19 22:11 | NUR ---
SPOKE TO MD ACUÑA. AWARE LAST RECORDED BM 01/16. NEW ORDERS FOR MILK OF MAGNESIUM RECEIVED.
--- NOTE | 2020-01-19 23:04 | NUR ---
CDI ABDOMINAL DRESSING APPLIED OVER SURGICAL SITE. SONG IRRIGATION PROVIDED PER MD ORDER.
[2020-01-20] VITALS (7 sets, daily range): BP systolic 154–189; BP diastolic 91–99
[2020-01-20] MEDS: METOPROLOL TARTRATE INJ 1 MG/ML VIAL IV SCH ×4 (00:22→18:00)
[2020-01-20] MEDS: SODIUM CHLORIDE 0.9% 1000ML 1,000 ML IV SCH (00:37)
[2020-01-20] MEDS: ONDANSETRON HCL INJ 2MG/ML 2ML 2 MG/ML VIAL IV PRN ×3 (00:40→20:34)
--- NOTE | 2020-01-20 03:50 | NUR ---
DRESSING CHANGE PROVIDED. SONG CARE PROVIDE VIA CASTILE SOAP WIPES.
[2020-01-20 04:57] LABS: BASOPHILS % 0.2 % (0.0-1.0); EOSINOPHILS # (AUTO) 0.2 (0.0-0.4); EOSINOPHILS % 2.6 % (0.0-6.0); HEMATOCRIT 28.7 % (38.2-49.6); HEMOGLOBIN 8.8 g/dL (14.0-18.0); LYMPHOCYTES # (AUTO) 0.6 (1.0-3.2); LYMPHOCYTES % 10.7 % (18.0-39.1); MEAN CORPUSCULAR HEMOGLOBIN 24.2 pg (28-32); MEAN CORPUSCULAR HGB CONC 30.7 g/dL (31-35); MEAN CORPUSCULAR VOLUME 79.1 fL (81-99); MONOCYTES # (AUTO) 0.4 (0.2-0.8); MONOCYTES % 6.6 % (4.4-11.3); NEUTROPHILS # (AUTO) 4.5 (2.1-6.9); NEUTROPHILS % 77.8 % (38.7-80.0); PLATELET COUNT 104 x10e3/uL (140-360); RED BLOOD COUNT 3.63 x10e6/uL (4.3-5.7); RED CELL DISTRIBUTION WIDTH 16.6 % (11.7-14.4)
[2020-01-20] MEDS: METOCLOPRAMIDE HCL 10 MG/2ML VIAL IV SCH ×2 (05:00→17:04)
[2020-01-20 05:20] LABS: CREATININE, SERUM 6.27 mg/dL (0.72-1.25)
--- NOTE | 2020-01-20 06:40 | NUR ---
SPOKE TO MD LENNON. AWARE NEW CONSULT.
--- NOTE | 2020-01-20 07:28 | NUR ---
REPORT GIVEN TO DAYSHIFT NURSE. ALERT AND RESTING IN BED. NO SIGNS IV INFILTRATION. BED LOCKED AND IN LOW POSITION. CALL LIGHT WITHIN REACH.
[2020-01-20] MEDS: INSULIN LISPRO 100 UNIT/1 ML 3ML VIAL SQ SCH ×3 (10:05→21:00)
[2020-01-20] MEDS: CALCITRIOL 0.25 MCG CAP PO SCH (10:06)
[2020-01-20] MEDS: PANTOPRAZOLE SOD 40 MG TABEC PO SCH (10:06)
[2020-01-20] MEDS: CALCIUM CARBONATE 500 MG CHEWABLE TABS PO SCH ×4 (10:06→22:17)
[2020-01-20] MEDS: SODIUM CHLORIDE 0.9% 250ML IRRIG IR SCH ×2 (10:06→22:17)
[2020-01-20] MEDS ORDERED: CALCIUM GLUCONATE 10% INJ 9.3 MEQ in SODIUM CHLORIDE 0.9% 100 ML 100 ML IV ONE (10:45)
[2020-01-20] MEDS ORDERED: PROMETHAZINE 25MG/ NS 50ML (IV) IV PRN (11:00)
--- NOTE | 2020-01-20 11:46 | NUR ---
FAXED CXR AND DIALYSIS NOTE TO [facility]
--- NOTE | 2020-01-20 12:07 | Diagnostic Imaging Report ---
Exam: KUB - 2 views Indication: Neurogenic bladder Comparison: KUB 01/19/2020 Findings: Nonobstructive bowel gas pattern. No free air. Surgical clips in the right abdomen status post right nephrectomy. Punctate calcifications throughout the upper abdomen correspond with pancreatic calcification seen on recent CT. Left internal nephroureteral stent with proximal loop overlying the left upper kidney and distal end coursing externally in the right lower abdomen. Anterior abdominal surgical skin araceli. Impression: No significant interval change. Signed by: Imtiaz Manzo MD on 01/20/2020 12:04 PM
[2020-01-20] MEDS ORDERED: PROPOFOL IV EMULSION 10 MG/ML 20 ML VIAL ONE (12:16)
[2020-01-20] MEDS ORDERED: METOCLOPRAMIDE HCL 10 MG/2ML VIAL IV ONE (12:30)
[2020-01-20 12:57] LABS: AMYLASE < 3 U/L (25-125); LIPASE 43 U/L (8-78)
--- NOTE | 2020-01-20 13:10 | Consultation ---
DATE OF CONSULTATION: 01/20/2020 Endocrine Consultation This is a patient of Dr. Vidal. Thank you very much for referring this patient. HISTORY OF PRESENT ILLNESS: This is a 39-year-old gentleman who has diabetes mellitus type 1 with complications. The patient has chronic end-stage renal failure, was on peritoneal dialysis, presently he is on hemodialysis. He has a very complicated course with chronic urinary retention and post obstructive nephropathy. The patient had ureterostomy done and is presently started on the TPN. His blood sugars are significantly elevated. At home, the patient takes only 5 units of Humalog 3 times a day with each meal. He is on multiple medications at home including calcitriol, vitamin D, gabapentin, Reglan, and nifedipine. PHYSICAL EXAMINATION: GENERAL: Today, the patient is alert, awake, little bit apprehensive. VITAL SIGNS: His heart rate is around 78, blood pressure 130/80 mmHg. HEENT: Essentially unremarkable. Thyroid is palpable. Clinically, he is near euthyroid. CHEST: Bilateral vesicular breathing. He has bilateral bronchospasm. CARDIAC: First and second heart sounds. There is no third or fourth heart sound. Ejection systolic murmur grade 2/6. ABDOMEN: The patient has abdominal wound from the right ureterostomy and also has another hole from the bladder with the drainage. 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 CLINICAL IMPRESSION: Diabetes mellitus type 1, uncontrolled with complications, chronic urinary retention status post suprapubic tract. Left ureteroileal conduit. End-stage renal failure on chronic hemodialysis presently. The patient has been started on TPN also. The plan at this time is do hemoglobin A1c, thyroid function tests, monitor his blood sugars closely. We will also add about 20 units of regular insulin in the TPN, put him on the Lantus and Humalog insulin. Thanks again for referring this patient. We will follow this patient with you. MD MILES Franklin/MODL /[id number]
[2020-01-20] MEDS ORDERED: SODIUM CHLORIDE 0.9% 250ML 500 ML IV PRN (13:15)
[2020-01-20] MEDS ORDERED: HEPARIN SOD (PORCINE) 1000 UNIT/ML SDV IV PRN (13:15)
[2020-01-20] MEDS ORDERED: SODIUM CHLORIDE 0.9% 1000ML 2,000 ML IV PRN (13:15)
[2020-01-20 13:29] LABS: FREE T4 (FREE THYROXINE) 1.09 ng/dL (0.8-1.8); THYROID STIMULATING HORMONE 1.024 uIU/mL (0.350-4.940)
[2020-01-20] MEDS ORDERED: PANTOPRAZOLE 40 MG 10ML VIAL IV ONE (14:18)
[2020-01-20] MEDS ORDERED: PANTOPRAZOLE 40 MG 10ML VIAL ONE (14:27)
--- NOTE | 2020-01-20 14:30 | Progress Note ---
DATE: 01/20/2020 Medicine Progress Note SUBJECTIVE: The patient still has significant amount of nausea and vomiting. I consulted with GI and the patient will be undergoing an EGD later today. PHYSICAL EXAMINATION: VITAL SIGNS: Temperature is 97.7, pulse 95, respiratory rate is 18, blood pressure 172/92, and pulse ox 98% on room air. GENERAL: Not in acute distress. Alert and oriented x3. Cooperative on examination. PULMONARY: Clear to auscultation bilaterally. No wheezing, no rales, no rhonchi, no crackles appreciated. CARDIOVASCULAR: Positive S1 and S2. No murmurs, rubs, or gallops appreciated. ABDOMEN: Soft, nondistended, and nontender to palpation. Bowel sounds present. MUSCULOSKELETAL: Strength is 5/5 throughout. LABORATORY DATA: Show white count 5.7, hemoglobin 8.8, hematocrit is 28, and platelets of 104. Chemistry; sodium 137, potassium 4, chloride 101, bicarb 20, anion gap of 20, BUN is 50, creatinine is 6.27, and glucose is 301. Hemoglobin A1c was 7.7. Ionized calcium is 1, which is being replaced. TSH 1.09. IMAGING DATA: Abdominal x-ray this morning shows no significant interval change. IMPRESSION: 1. Chronic urinary retention, status post excision of his suprapubic tract with underlying cystography. 2. Left ureteroileal conduit complicated. 3. End-stage renal disease, on hemodialysis. 4. Nausea and vomiting with bile emesis. 5. Anemia of end-stage renal disease. 6. Secondary hyperparathyroidism. 7. Hypertension. PLAN: At this time, the patient continues to have significant amount of nausea and vomiting. I did go ahead and discontinue Reglan and add Phenergan q.6 hours p.r.n. Stat KUB shows no acute findings. I did consult with GI. The patient is going to undergo EGD later this afternoon for further evaluation and management. Continue with Protonix. I initiated his IV PPN and signed the orders already. He is still n.p.o. HD per Nephrology. We will initiate anticoagulation tomorrow, as today he is going to undergo EGD. Get a.m. labs. Plan of care discussed with nursing staff and the patient. MD THOMAS Ramos/BRANDENL /[id number]
[2020-01-20] MEDS: EPOETIN ALFA-EPBX 10,000 UNIT/ML VIAL SC SCH (16:30)
[2020-01-20] MEDS ORDERED: INSULIN GLARGINE 100 UNITS/ML VIAL SQ SCH (17:00)
[2020-01-20] MEDS ORDERED: METOPROLOL TARTRATE INJ 1 MG/ML VIAL IV SCH (20:02)
[2020-01-20] MEDS: PERIPHERAL TPN FORMULA 1 BAG IV SCH (21:05)
[2020-01-20] MEDS: PANTOPRAZOLE INJ 40 MG in SODIUM CHLORIDE 0.9% 50ML 50 ML IV SCH (23:17)
[2020-01-21] MEDS: METOCLOPRAMIDE HCL 10 MG/2ML VIAL IV SCH ×4 (00:42→17:11)
[2020-01-21] MEDS: METOPROLOL TARTRATE INJ 1 MG/ML VIAL IV SCH ×4 (00:45→13:00)
[2020-01-21] MEDS ORDERED: PANTOPRAZOLE 40 MG 10ML VIAL IV SCH (02:00)
[2020-01-21] MEDS: PANTOPRAZOLE INJ 40 MG in SODIUM CHLORIDE 0.9% 50ML 50 ML IV SCH ×4 (03:30→18:30)
--- NOTE | 2020-01-21 04:00 | NUR ---
PT GOT UP FROM CHAIR. CHRISTIANNE ANGELO WITH TELE MNITOR.KALLIE DRAIN CHARGED DRAINING CLEAR SEROUS SANGUINOUS.INCISIONS -UROSTOMY BAG INTACT DRAINING CLOUDY YELLOW URINE.SONG CATH DRAINING CLEAR YELLOW URINE.PT DENIES PAIN. CALL LIGHT WITHIN REACH. BED IN LOW POSITION.
[2020-01-21 06:07] LABS: BASOPHILS % 0.4 % (0.0-1.0); EOSINOPHILS # (AUTO) 0.2 (0.0-0.4); EOSINOPHILS % 3.6 % (0.0-6.0); HEMATOCRIT 28.3 % (38.2-49.6); HEMOGLOBIN 9.1 g/dL (14.0-18.0); LYMPHOCYTES # (AUTO) 0.9 (1.0-3.2); MEAN CORPUSCULAR HEMOGLOBIN 25.3 pg (28-32); MEAN CORPUSCULAR HGB CONC 32.2 g/dL (31-35); MEAN CORPUSCULAR VOLUME 78.6 fL (81-99); MONOCYTES # (AUTO) 0.4 (0.2-0.8); MONOCYTES % 7.5 % (4.4-11.3); NEUTROPHILS # (AUTO) 3.5 (2.1-6.9); NEUTROPHILS % 69.1 % (38.7-80.0); PLATELET COUNT 105 x10e3/uL (140-360); RED CELL DISTRIBUTION WIDTH 16.5 % (11.7-14.4)
[2020-01-21 06:31] LABS: ALBUMIN 2.2 g/dL (3.5-5.0); ALBUMIN/GLOBULIN RATIO 0.5 (0.8-2.0); ANION GAP 15.5 mmol/L (8-16); CREATININE, SERUM 4.37 mg/dL (0.72-1.25); POTASSIUM 3.5 mmol/L (3.5-5.1)
[2020-01-21 06:37] LABS: CALCIUM 6.9 mg/dL (8.4-10.2)
--- NOTE | 2020-01-21 07:00 | NUR ---
ASSUMED CARE. PATIENT AWAKE AND ALERT. RESTING IN RECLINER AT BEDSIDE. NO DISTRESS NOTED. TPN INFUSING VIA LEFT HAND IV. URINARY SONG CATHETER NOTED. UROSTOMY NOTED. SURGICAL INCISION WITH CRYSTAL NOTED TO LOWER ABDOMEN. INCISION OPEN TO AIR. NO SIGNS OF INFECTION NOTED.
[2020-01-21 08:00] VITALS: BP 149/91
[2020-01-21] MEDS: INSULIN LISPRO 100 UNIT/1 ML 3ML VIAL SQ SCH ×5 (08:30→21:00)
[2020-01-21 09:21] VITALS: BP 149/91
[2020-01-21] MEDS: SODIUM CHLORIDE 0.9% 250ML IRRIG IR SCH ×2 (09:21→21:00)
[2020-01-21] MEDS: CALCIUM CARBONATE 500 MG CHEWABLE TABS PO SCH ×3 (09:58→21:00)
[2020-01-21] MEDS: CALCITRIOL 0.25 MCG CAP PO SCH (09:58)
[2020-01-21 12:15] VITALS: BP 153/87
[2020-01-21] MEDS: MORPHINE SULFATE 2 MG/ML SYR 1ML IV PRN ×2 (15:20→23:59)
--- NOTE | 2020-01-21 15:38 | Progress Note ---
DATE: 01/21/2020 Renal Progress Note SUBJECTIVE: Events over the past 24 hours have been noted. The patient has no chest pain, no shortness of breath. He underwent dialysis yesterday for 4 hours. PHYSICAL EXAMINATION: VITAL SIGNS: Blood pressure 153/87, pulse 85, respirations . GENERAL: The patient is in no acute disease. HEENT: No increased JVD. CARDIOVASCULAR: Regular rate and rhythm. LUNGS: Clear to auscultation bilaterally. ABDOMEN: The patient has an ileal conduit that is draining. He has scar from his PD catheter . The patient has a tunneled dialysis catheter in the right chest wall area. EXTREMITIES: SCDs in place. LABORATORY RESULTS: Sodium 130, potassium 3.5, chloride 100, bicarbonate 24, BUN and creatinine 30 and 4.3 respectively. Calcium is 6.9. IMPRESSION/PLAN: 1. Chronic kidney disease, stage 5. 2. Status post creation of an ileal conduit. 3. Relative hypocalcemia. 4. Status post dialysis catheter. 5. Anemia. PLAN: The patient underwent dialysis for 4 hours. The patient has been switched from peritoneal to hemodialysis, actually his labs are looking better. His calcium is not as low as it used to be. However, I still want to keep him on calcitriol and calcium carbonate for a little while longer, but I do not think he will need it for very much longer. There is no need for dialysis today. We will get him dialyzed tomorrow. He is being set up to go to [facility] in [place] for outpatient dialysis. Ather MD LAMAR Delacruz/NOREEN /[id number]
[2020-01-21 15:45] VITALS: BP 160/94
--- NOTE | 2020-01-21 15:59 | Progress Note ---
DATE: 01/21/2020 Medicine Progress Note. SUBJECTIVE: The patient is doing much better today. He is tolerating clear liquid diet, in fact he ate all his breakfast and his lunch, clear liquid diet and tolerated well with no issues. He does have some diarrhea though. PHYSICAL EXAMINATION: VITAL SIGNS: Temperature is 97.8, pulse 85, respiratory rate 16, blood pressure is 152/87, pulse ox 99% on room air. GENERAL: Not in acute distress, alert and oriented x3, cooperative on examination. PULMONARY: Clear to auscultation bilaterally. No wheezes, rales or rhonchi. No crackles appreciated. CARDIOVASCULAR: Positive S1-S2. No gallop. ABDOMEN: Soft, nondistended, and nontender to palpation. Bowel sounds present. MUSCULOSKELETAL: Strength 5/5 throughout. SKIN: Intact, warm to touch. Good cap refill. PSYCHIATRIC: Normal affect and mood. EXTREMITIES: No edema. Good range of motion throughout. LABORATORY FINDINGS: White count 5, hemoglobin 9.1, hematocrit 28, platelets of 105,000. Chemistry sodium 136, potassium 3.5, chloride 100, bicarb 24, anion gap of 15, BUN is 30, creatinine 4.37, glucose is 262, calcium is 6.9, but corrected is greater than 8. Serology; coronavirus not detected. MICROBIOLOGY: None. IMAGING STUDIES: None today. IMPRESSION: 1. Chronic urinary retention, status post excision of supernumerary trach with underlying cystography with a left ureteral ileal conduit complicated. 2. End-stage renal disease, on hemodialysis. 3. Nausea, vomiting and bowel emesis, status post EGD performed on 01/21/2020 that showed esophagitis and gastritis with underlying gastric ulcer. 4. Anemia of end-stage renal disease. 5. Secondary hyperparathyroidism. 6. Hypertension. PLAN: At this time, the patient is tolerating clear liquid diet well. If he does well tomorrow, advance to full liquid. Stop PPN. Continue with antinausea medications. GI recommendations noted. EGD noted. Urology is following. He is having problems with his ileal conduit urinary bag, which is leaking, but I will defer to Urology. Encourage ambulation. We will add heparin for DVT prophylaxis. Get a.m. labs. Initiate his oral blood pressure medications. Plan of care discussed with nursing staff and patient. If the patient does well we will advance to full liquid diet tomorrow. MD THOMAS Ramos/NOREEN /[id number]
[2020-01-21] MEDS: CARVEDILOL 12.5 MG TAB PO SCH (17:11)
--- NOTE | 2020-01-21 17:24 | NUR ---
PT department has been attempting to eval patient for PT services since 01/17/2020. Pt has declined eval despite education on the benefits of PT and the disadvantages of his continued refusal. Will D/C PT services due to non-participation. Addendum: 01/21/20 at 1726 by Chiki Garcia PT Amended: Links added.
--- NOTE | 2020-01-21 19:47 | NUR ---
BEDSIDE SHIFT REPORT RECEIVED FROM DAY RN. PT IS ALERT AND ORIENTED X3. PPN D/C ON DAY SHIFT. ACCUCHECK 62. APPLE JUICE WITH SUGAR GIVEN TO PT. TELE ON. SL IN RT AC. 20 G PIV - PROTONIX DRIP AT 10 ML/HR. KALLIE DRAIN CHARGED. UROSTOMY BAG - URINE - BAG INTACT. SONG IRRIGATED- PINK TINGED BUT NO CLOTS. CRYSTAL DRY AND INTACT.CALL LIGHT WITHIN REACH. BED ALARM ON.BED IN LOW POSITION.
[2020-01-21 20:00] VITALS: BP 160/94
[2020-01-21] MEDS: INSULIN GLARGINE 100 UNITS/ML VIAL SQ SCH (21:00)
[2020-01-21 22:02] VITALS: BP 130/84
[2020-01-21] MEDS: HEPARIN SOD (PORCINE) 5,000 UNIT/ML VIAL SC SCH (22:07)
[2020-01-21] MEDS: ONDANSETRON HCL INJ 2MG/ML 2ML 2 MG/ML VIAL IV PRN (22:12)
[2020-01-22] VITALS (8 sets, daily range): BP systolic 121–159; BP diastolic 73–97
[2020-01-22] MEDS: METOCLOPRAMIDE HCL 10 MG/2ML VIAL IV SCH ×4 (00:41→17:22)
[2020-01-22] MEDS: PANTOPRAZOLE INJ 40 MG in SODIUM CHLORIDE 0.9% 50ML 50 ML IV SCH (04:30)
[2020-01-22 05:38] LABS: BASOPHILS % 0.7 % (0.0-1.0); EOSINOPHILS # (AUTO) 0.3 (0.0-0.4); EOSINOPHILS % 6.6 % (0.0-6.0); HEMATOCRIT 25.8 % (38.2-49.6); LYMPHOCYTES # (AUTO) 1.1 (1.0-3.2); LYMPHOCYTES % 24.1 % (18.0-39.1); MEAN CORPUSCULAR HEMOGLOBIN 24.6 pg (28-32); MEAN CORPUSCULAR VOLUME 79.4 fL (81-99); MONOCYTES # (AUTO) 0.5 (0.2-0.8); MONOCYTES % 10.7 % (4.4-11.3); NEUTROPHILS # (AUTO) 2.5 (2.1-6.9); NEUTROPHILS % 55.3 % (38.7-80.0); PLATELET COUNT 89 x10e3/uL (140-360); RED BLOOD COUNT 3.25 x10e6/uL (4.3-5.7); RED CELL DISTRIBUTION WIDTH 16.5 % (11.7-14.4)
[2020-01-22] MEDS: MORPHINE SULFATE 2 MG/ML SYR 1ML IV PRN ×5 (05:40→22:33)
[2020-01-22 05:58] LABS: ALBUMIN 2.1 g/dL (3.5-5.0); ALBUMIN/GLOBULIN RATIO 0.5 (0.8-2.0); ANION GAP 15.4 mmol/L (8-16); CREATININE, SERUM 5.58 mg/dL (0.72-1.25); MAGNESIUM 2.1 MG/DL (1.3-2.1); POTASSIUM 3.4 mmol/L (3.5-5.1)
[2020-01-22 06:05] LABS: CALCIUM 6.3 mg/dL (8.4-10.2)
[2020-01-22 07:38] LABS: COLOR,URINE PINK (YELLOW)
[2020-01-22 07:39] LABS: CLARITY,URINE SL CLOUDY (CLEAR); LEUKOCYTE ESTERASE ,URINE LARGE (NEGATIVE); NITRITE,URINE NEGATIVE (NEGATIVE); PROTEIN,URINE DIPSTICK 1+ (NEGATIVE)
[2020-01-22 07:40] LABS: BILIRUBIN,URINE NEGATIVE (NEGATIVE); KETONES,URINE NEGATIVE (NEGATIVE); URINE UROBILINOGEN 0.2 mg/dL (0.2 - 1)
[2020-01-22 07:50] LABS: BACTERIA,URINE RARE /HPF; EPITHELIAL CELLS,URINE FEW /LPF; WBC,URINE (MAN) 21-50 /HPF (0-5)
--- NOTE | 2020-01-22 07:57 | NUR ---
CALCIUM 6.2. PT REFUSING TO TAKE TUMS. wILL NOTIFY PHYSICIAN OF LAB AND ENDORSED TO DAY SHIFT.
[2020-01-22] MEDS: INSULIN LISPRO 100 UNIT/1 ML 3ML VIAL SQ SCH ×8 (08:00→21:00)
[2020-01-22] MEDS: SODIUM CHLORIDE 0.9% 250ML IRRIG IR SCH ×2 (09:11→21:00)
[2020-01-22] MEDS: CALCITRIOL 0.25 MCG CAP PO SCH (09:29)
[2020-01-22] MEDS: CARVEDILOL 12.5 MG TAB PO SCH ×2 (09:29→17:22)
[2020-01-22] MEDS: CALCIUM CARBONATE 500 MG CHEWABLE TABS PO SCH ×3 (09:29→21:00)
[2020-01-22] MEDS: INSULIN GLARGINE 100 UNITS/ML VIAL SQ SCH (09:32)
[2020-01-22] MEDS: HEPARIN SOD (PORCINE) 5,000 UNIT/ML VIAL SC SCH ×2 (09:32→21:00)
[2020-01-22] MEDS: PANTOPRAZOL 40MG/SOD CHL 0.9% 50 ML IV SCH ×4 (11:08→23:37)
--- NOTE | 2020-01-22 14:02 | Progress Note ---
DATE: 01/22/2020 Renal Progress Note SUBJECTIVE: Events of the past 24 hours have been noted. The patient is sleeping comfortably. No chest pain. No shortness of breath. PHYSICAL EXAMINATION: VITAL SIGNS: Blood pressure 158/89, pulse 84, respirations 18. GENERAL: The patient is in no acute distress. He is sleeping comfortably, easily arousable. HEENT: No increased JVD. CARDIOVASCULAR: Regular rhythm. LUNGS: Clear to auscultation bilaterally. ABDOMEN: The patient has an ileal conduit and also he had removal of the PD catheter. The patient has a tunneled dialysis catheter in the right chest wall area. EXTREMITIES: Trace edema of the legs. He has surgical scar on his right knee from his previous surgery. LABORATORY RESULTS: Hemoglobin and hematocrit 8 and 25.8 respectively. Sodium 133, potassium 3.4, chloride 99, bicarbonate 22, and BUN and creatinine 37 and 5.5 respectively. Calcium is 6.3. Albumin is 2.1. IMPRESSION/PLAN: 1. Chronic kidney disease, stage 5. 2. Status post creation of ileal conduit. 3. Relative hypocalcemia. 4. Status post removal of a peritoneal dialysis catheter. 5. Anemia. The patient was dialyzed yesterday. His next dialysis will be tomorrow. The patient's calcium is low. He is however on 1500 mg of Tums three times a day and also calcitriol. We will continue this. His corrected calcium is above the 8 range, so I do not think he needs IV calcium at this time. He will get dialysis tomorrow. He is also being set up to go to [facility] in [place] for outpatient dialysis. Ather MD LAMAR Delacruz/NOREEN /[id number]
[2020-01-22] MEDS: ONDANSETRON HCL INJ 2MG/ML 2ML 2 MG/ML VIAL IV PRN ×2 (14:22→22:40)
--- NOTE | 2020-01-22 18:27 | NUR ---
urostomy bag changed- leaking around wafer piece that is supposed to stick to patient's abdomen.
--- NOTE | 2020-01-22 19:47 | NUR ---
pt alert and orientedx3. bedside shift report received from day rn. condition stable.
--- NOTE | 2020-01-22 20:28 | Progress Note ---
DATE: 01/22/2020 SUBJECTIVE: The patient is doing well today with no complaints. He is tolerating full liquid diet with no issues. PHYSICAL EXAMINATION: VITAL SIGNS: Temperature is 97.6, pulse 70, respiratory rate is 18, blood pressure 141/97, pulse ox 99% on room air. GENERAL: Not in acute distress. Alert and oriented x3. Cooperative on examination. PULMONARY: Clear to auscultation bilaterally. No wheezing, rales, or rhonchi. No crackles appreciated. CARDIOVASCULAR: Positive S1, S2. No murmurs, rubs, or gallops. ABDOMEN: Soft, nondistended, tender to palpation. Bowel sounds present. MUSCULOSKELETAL: The patient is ambulatory. Strength is 5/5 throughout. SKIN: Intact. Warm to touch. Good cap refill. LABORATORY FINDINGS: Show white count 4.5, hemoglobin 8, hematocrit 25, MCV 79, platelets of 89. Chemistry; sodium 133, potassium 3.4, chloride 99, bicarb 22, anion gap of 15, BUN is 37, creatinine is 5.5, glucose 281, calcium is 6.3, albumin is 2.1. TSH is 1.024. Urinalysis noted. Serology; coronavirus not detected. Hepatitis panel negative. IMAGING STUDIES: Nothing new. IMPRESSION: 1. Chronic urinary retention status post excision of the suprapubic tract with underlying cystography with left ureteral ileal conduit. 2. End-stage renal disease, on hemodialysis. 3. Electrolyte abnormalities. 4. Nausea, vomiting with bowel emesis, status post EGD that showed severe esophagitis and gastritis, and underlying gastric ulcer performed on 01/21/2020. 5. Anemia of end-stage renal disease. 6. Secondary hyperparathyroidism. 7. Hypertension. PLAN: At this time, continue with full liquid diet and advance potentially tomorrow to a renal diet. He is tolerating it very well. Continue with his antinausea medications as well. GI is following. The Urology is also following in terms of ileal conduit urinary bag. I will defer this to Urology. Encourage ambulation. Heparin for deep venous thrombosis prophylaxis. Get a.m. labs. As for electrolyte abnormalities, Nephrology is consulted and the patient is receiving dialysis and they are managing electrolytes. Dr. Potts will be available tomorrow to resume primary care. MD THOMAS Ramos/NOREEN /[id number]
[2020-01-22] MEDS ORDERED: INSULIN GLARGINE 100 UNITS/ML VIAL SQ SCH (21:00)
[2020-01-23] VITALS (8 sets, daily range): BP systolic 105–134; BP diastolic 72–90
[2020-01-23] MEDS: METOCLOPRAMIDE HCL 10 MG/2ML VIAL IV SCH ×5 (00:07→23:59)
[2020-01-23] MEDS: MORPHINE SULFATE 2 MG/ML SYR 1ML IV PRN ×4 (04:08→17:30)
[2020-01-23 05:55] LABS: BASOPHILS % 0.4 % (0.0-1.0); EOSINOPHILS # (AUTO) 0.3 (0.0-0.4); EOSINOPHILS % 6.3 % (0.0-6.0); HEMATOCRIT 25.6 % (38.2-49.6); HEMOGLOBIN 8.1 g/dL (14.0-18.0); LYMPHOCYTES # (AUTO) 1.2 (1.0-3.2); LYMPHOCYTES % 26.8 % (18.0-39.1); MEAN CORPUSCULAR HEMOGLOBIN 25.2 pg (28-32); MEAN CORPUSCULAR HGB CONC 31.6 g/dL (31-35); MEAN CORPUSCULAR VOLUME 79.8 fL (81-99); MONOCYTES # (AUTO) 0.4 (0.2-0.8); MONOCYTES % 9.4 % (4.4-11.3); NEUTROPHILS # (AUTO) 2.5 (2.1-6.9); NEUTROPHILS % 55.1 % (38.7-80.0); PLATELET COUNT 77 x10e3/uL (140-360); RED BLOOD COUNT 3.21 x10e6/uL (4.3-5.7); RED CELL DISTRIBUTION WIDTH 16.6 % (11.7-14.4)
[2020-01-23] MEDS: PANTOPRAZOL 40MG/SOD CHL 0.9% 50 ML IV SCH ×4 (05:58→21:00)
[2020-01-23 06:10] LABS: ANION GAP 14.8 mmol/L (8-16); CREATININE, SERUM 6.57 mg/dL (0.72-1.25); POTASSIUM 3.8 mmol/L (3.5-5.1)
--- NOTE | 2020-01-23 07:00 | NUR ---
Received report from off going nurse. Pt sitting up in a chair and no apparent distress. Pt skins appears yellow.
[2020-01-23] MEDS: INSULIN LISPRO 100 UNIT/1 ML 3ML VIAL SQ SCH ×8 (07:30→21:00)
[2020-01-23] MEDS: ONDANSETRON HCL INJ 2MG/ML 2ML 2 MG/ML VIAL IV PRN ×2 (07:54→17:30)
[2020-01-23] MEDS: SODIUM CHLORIDE 0.9% 250ML IRRIG IR SCH (09:00)
[2020-01-23] MEDS ORDERED: CALCIUM GLUCONATE 10% INJ 4.65 MEQ in SODIUM CHLORIDE 0.9% 50ML 50 ML IV ONE (09:30)
--- NOTE | 2020-01-23 09:30 | NUR ---
Remove Barcenas and KALLIE drain per Dr. Manjarrez orders. Pt tolerated well. Minimal drainage from KALLIE incision LUQ.
--- NOTE | 2020-01-23 10:43 | NUR ---
Called Dr. Potts advised Calcium 6.0. No new orders.
--- NOTE | 2020-01-23 11:43 | NUR ---
Received order for LTAC eval. Spoke to pt at bedside and pt is agreeable with LTAC. Gave choice for [facility]. Choice letter signed. Copy given to pt. Signed choice letter placed in front of chart. Referral sent to [facility]. Monica with [facility] was notified.
[2020-01-23] MEDS: CARVEDILOL 12.5 MG TAB PO SCH ×2 (12:11→16:22)
[2020-01-23] MEDS: CALCIUM CARBONATE 500 MG CHEWABLE TABS PO SCH ×4 (12:12→21:22)
[2020-01-23] MEDS: CALCITRIOL 0.25 MCG CAP PO SCH (12:12)
[2020-01-23] MEDS: HEPARIN SOD (PORCINE) 5,000 UNIT/ML VIAL SC SCH ×2 (12:24→21:46)
--- NOTE | 2020-01-23 13:17 | NUR ---
WOUNDCARE CONSULT FOR ASSESSMENT OF UROSTOMY BAG INTEGRITY APPLIANCE INTACT DRAINING CLEAR YELLOW URINE NO LEAK NOTED AT THIS TIME INSTRUCTED ON NOT LETTING APPLIANCE OVER FILL AND TO DRAIN SO WEIGHT DOESNT PULL SYSTEM AWAY FROM SKIN Addendum: 01/23/20 at 1320 by Minor Randhawa RN Amended: Links added.
--- NOTE | 2020-01-23 15:03 | NUR ---
Nutrition Intervention Note RD Recommendation(s) for Physician: -As feasible ADAT to 1800 ADA, Renal, GI Soft -Recommend Nepro BID for adequacy Plan of Care: RD following, monitoring for tolerance and adequacy Nutrition reason for involvement: follow up RD Assessment 01/22: Follow up. Pt asleep and having HD at time of visit. PPN stopped 01/20 and diet advanced yesterday to full liquids. Pt tolerating diet with average intake of 65% of meals per chart. Pt having BMs, currently on colace. Plan for discharge to LTAC. Chart reviewed. Will continue to monitor. (01/18/20) Pt is a 39 year old male admitted with neurogenic bladder. Pt had an NG tube to low intermittent suction, but NG tube was removed this afternoon per nursing note. Pt reported unsure weight loss upon admission and pt has various weights in chart from weight history. Pt is NPO and was started on PPN. Recommend advancing to renal diet when appropriate and weaning PPN when diet is advanced. Will continue to monitor. Principal Problems/Diagnoses: neurogenic bladder PMH: postobstructive nephropathy, neurogenic bladder, CKD 5, now end-stage renal disease. GI: last BM 01/21 x3 Skin: no pressure ulcers Labs: 01/22: Na 132, K 3.8, BUN 42, Cr 6.57, Gluc 294, Ca 6 (01/17) Na 138, K 4.0, BUN 34, Cr 6.53, Glu 139, Ca 6.6 Meds: reglan, tums, calcitriol, morphine, zofran, protonix, lispro, lantus, colace Ht: 73 in Wt: 218 lbs BMI: 28.8 kg/m2 IBW: 184 lbs Malnutrition Evaluation (01/23/20) The patient does not meet criteria for a specified degree of malnutrition at this time. Will re-evaluate at follow-up as appropriate. Energy intake: <50% of estimated energy requirements for >5 days Weight loss: none Fat loss: none, chest well developed Muscle loss: none, shoulder round Supporting Evidence: Fluid accumulation: none Functional Status: not assessed Nutrition Prescription (Diet Order): full liquids Estimated Nutritional Needs: 9945-4407 calories/day (30-35 kcal/kg CBW) 119-149 g protein/day (1.2-1.5 g pro/kg CBW) Diet Adequacy: Not meeting calorie needs, Not meeting protein needs- progressing Tolerance: tolerating po Diet Education Needs Assessment: Diet education not indicated, patient on temporary/transition diet. Nutrition Care Level: moderate Nutrition Diagnosis: Inadequate oral intake related to decreased ability to consume sufficient energy as evidenced by insufficient energy intake from diet compared to needs (pt is NPO) Goal: Patient will meet 75-100% of estimated needs by follow up Progress: progressing Interventions: Mineral, fiber, CHO - modified diet, Recommended Modifications, liquid supplement Monitoring/Evaluation: -Total energy intake, Total protein intake, Formula/Solution, Modified diet, Weight change Signed: Eboni Leiva RD, LD, [facility]
[2020-01-23] MEDS: EPOETIN ALFA-EPBX 10,000 UNIT/ML VIAL SC SCH (16:22)
--- NOTE | 2020-01-23 16:31 | Progress Note ---
DATE: 01/23/2020 Medicine Progress Note SUBJECTIVE: The events over the 24 hours have been noted. The patient underwent dialysis today. PHYSICAL EXAMINATION: VITAL SIGNS: Blood pressure 130/85, pulse 79, respirations 18. GENERAL: The patient is in no acute distress. He is sleepy, but arousable. HEENT: No increased JVD. CARDIOVASCULAR: Regular rate and rhythm. LUNGS: Clear to auscultation bilaterally. ABDOMEN: The patient has an ileal conduit and also he had the removal of PD catheter. The patient has a tunneled dialysis catheter in the right chest wall area. EXTREMITIES: Trace edema in the legs. He has surgical scar in the right knee from his previous surgeries. LABORATORY RESULTS: Sodium 132, potassium 3.8, chloride 99, bicarbonate 22, BUN and creatinine 42 and 6.5 respectively. Calcium is 6. IMPRESSION: 1. Chronic kidney disease, stage 5. 2. Hypocalcemia. PLAN: The patient has switched from peritoneal to hemodialysis. The patient underwent dialysis with 3 potassium, 2.5 calcium bath, 2 L were removed. One amp of calcium gluconate was given by the dialysis nurse because of the hypocalcemia. The patient is still on the calcium carbonate 1500 mg three times a day and also on calcitriol. Labs will be checked again tomorrow. The patient tolerated the dialysis well. He is being set up at [facility] in [place]. From a renal standpoint, he can be discharged. Ather MD LAMAR Delacruz/NOREEN /[id number]
--- NOTE | 2020-01-23 19:00 | NUR ---
Report given to on coming nurse. Pt sitting up in chair but then ambulated to the bathroom. Pt in no apparent distress.
--- NOTE | 2020-01-23 19:10 | NUR ---
RECEIVED BEDSIDE SHIFT REPORT FROM PREVIOUS NURSE. CALL LIGHT WITHIN REACH. PATIENT IS A&OX3. PATIENT REFUSING IV FLUIDS Addendum: 01/23/20 at 2325 by Susan Deluca RN PATIENT SITTING IN THE CHAIR
[2020-01-23] MEDS: INSULIN GLARGINE 100 UNITS/ML VIAL SQ SCH (21:00)
[2020-01-23] MEDS ORDERED: MECLIZINE HCL 12.5 MG TAB PO ONE (21:15)
[2020-01-23 23:16] LABS: % IRON SATURATION 18 % (15-50); IRON 27 ug/dL (65-175); TOTAL IRON BINDING CAPACITY 154 ug/dL (261-478); TRANSFERRIN 110 mg/dL (174-364)
[2020-01-24] VITALS (7 sets, daily range): BP systolic 115–154; BP diastolic 77–86
[2020-01-24] MEDS: PANTOPRAZOL 40MG/SOD CHL 0.9% 50 ML IV SCH ×3 (01:40→07:22)
--- NOTE | 2020-01-24 04:49 | NUR ---
Urostomy bag changed bc bag leaking and made his bed wet
[2020-01-24] MEDS: METOCLOPRAMIDE HCL 10 MG/2ML VIAL IV SCH (05:17)
[2020-01-24 05:35] LABS: ALBUMIN 2.2 g/dL (3.5-5.0); CREATININE, SERUM 4.95 mg/dL (0.72-1.25)
[2020-01-24 05:38] LABS: CALCIUM 6.6 mg/dL (8.4-10.2)
--- NOTE | 2020-01-24 05:43 | NUR ---
CALLED DR. LLOYD TO TELL HIM LAB CALLED TO SAY THE PATIENT'S CALCIUM IS 6.6. DR. LLOYD SAID TO NOT CALL ABOUT THE CALCIUM BEING LOW BECAUSE HE IS A DIALYSIS PATIENT AND HAS BEEN LOW. HE SAID MAKE SURE THE OTHER NURSES KNOW NOT TO CALL HIM FOR THE LOW CALCIUM AND HE WILL DEAL WITH IT WHEN HE COMES IN.
[2020-01-24 05:55] LABS: AMYLASE 25 U/L (25-125); LIPASE 9 U/L (8-78)
--- NOTE | 2020-01-24 07:18 | NUR ---
GAVE BEDSIDE SHIFT REPORT TO ONCOMING NURSE. CALL LIGHT WITHIN REACH. PATIENT IN BED. HOURLY ROUNDING PERFORMED
[2020-01-24] MEDS: INSULIN LISPRO 100 UNIT/1 ML 3ML VIAL SQ SCH ×6 (07:30→16:19)
[2020-01-24] MEDS: INSULIN GLARGINE 100 UNITS/ML VIAL SQ SCH (07:40)
[2020-01-24] MEDS: MECLIZINE HCL 12.5 MG TAB PO SCH ×2 (08:10→16:18)
[2020-01-24] MEDS: CALCITRIOL 0.25 MCG CAP PO SCH (08:10)
[2020-01-24] MEDS: CALCIUM CARBONATE 500 MG CHEWABLE TABS PO SCH ×2 (08:10→16:18)
[2020-01-24] MEDS: CARVEDILOL 12.5 MG TAB PO SCH ×2 (08:10→16:19)
[2020-01-24] MEDS: HEPARIN SOD (PORCINE) 5,000 UNIT/ML VIAL SC SCH (08:11)
[2020-01-24] MEDS ORDERED: CALCIUM GLUCONATE 10% INJ 9.3 MEQ in SODIUM CHLORIDE 0.9% 100 ML 100 ML IV ONE (08:30)
[2020-01-24] MEDS ORDERED: IRON SUCROSE 100 MG in SODIUM CHLORIDE 0.9% 100 ML 100 ML IV SCH (08:30)
--- NOTE | 2020-01-24 08:30 | NUR ---
REC'D PHONE CALL FROM [facility] STATING PT HAS BEEN APPROVED FOR DIALYSIS HAS CHAIR TIME ON INFORMED HER THAT PT HAS AN LTAC EVAL SHE WILL SEND APPROVAL LETTER PRIOR TO PT'S DC HOME, EITHER FROM LTAC, SNF OR HERE. CM TO FOLLOW
--- NOTE | 2020-01-24 10:14 | NUR ---
patient refusing to wear telemetry and wants it discontinued, informed patient I will notify .
[2020-01-24] MEDS ORDERED: MORPHINE SULFATE 2 MG/ML SYR 1ML IV PRN (11:15)
[2020-01-24] MEDS: METOCLOPRAMIDE HCL 10 MG TAB PO SCH ×2 (12:02→16:18)
--- NOTE | 2020-01-24 12:53 | NUR ---
Spoke with Monica Villalobos, currently pending auth.
--- NOTE | 2020-01-24 15:57 | Progress Note ---
DATE: Renal Progress Note SUBJECTIVE: Events over the past 24 hours have been noted. The patient has no complaints. No chest pain. No shortness of breath. PHYSICAL EXAMINATION: VITAL SIGNS: Blood pressure 131/83, pulse 91, and respirations 16. GENERAL: The patient is in no acute distress. HEENT: No increased JVD. CARDIOVASCULAR: Regular rate and rhythm. LUNGS: Clear to auscultation. ABDOMEN: Positive bowel sounds. EXTREMITIES: Trace edema of the legs. The patient has a tunneled dialysis catheter in the right chest wall area. LABORATORY RESULTS: Sodium 137, potassium 4, chloride 102, bicarbonate 24, BUN and creatinine 23 and 4.9 respectively, and calcium 6.6. Albumin 2.2. IMPRESSION/PLAN: 1. Chronic kidney disease, stage 5. 2. Creation of ileal conduit. 3. Hypocalcemia, will supplement again. The patient has low calcium. He is already on Tums and calcitriol, but I will give one amp of calcium gluconate today. He is due for dialysis tomorrow. We are just waiting on placement at [facility] in [place]. Ather MD LAMAR Delacruz/NOREEN /[id number]
--- NOTE | 2020-01-24 16:11 | NUR ---
LONG-TERM ACUTE CARE DISCHARGE INFORMATION PATIENT HAS BEEN ACCEPTED TO: [address] [address] ACCEPTING AUTO SUSPENSION AND STEERING MECHANIC: Jero Randhawa, SOFT SUGAR OPERATOR HEAD ACCEPTING MD: Dr. Ferrari ROOM: 237 AFTER 7pm NURSE CALL REPORT TO: [phone] THE FOLLOWING DOCUMENTS MUST ACCOMPANY PATIENT FOR TRANSFER: copy of chart, transfer MAR COPIED CHART: community relations manager MOT INFO RECEIVED FROM: Monica Qiu PHYSICIANS ORDER/RECONCILED MED LIST: to be obtained by bedside RN [id number] DNR: n/a MOT completed and given to PRUDENCE Roche.
--- NOTE | 2020-01-24 17:27 | NUR ---
report called to Wilfredo mauro for room 213. Silvia FOSS, informed of patients current urostomy system and need for Wound/stoma consult per Dr. Shubham OLSON. All pertinent clinical information given.
--- NOTE | 2020-01-24 19:00 | NUR ---
RECEIVED BEDSIDE SHIFT REPORT FROM PREVIOUS NURSE. CALL LIGHT WITHIN REACH. PATIENT IN THE CHAIR. PATIENT READY TO LEAVE TO [place]
--- NOTE | 2020-01-24 20:08 | NUR ---
[facility] CAME AND TOOK THE PATIENT AND HIS BELONGINGS WITH HIM TO [facility]. PATIENT IN NO PAIN OR DISTRESS. ALL BELONGINGS WERE COLLECTED BY THE PATIENT. PATIENT IV ON LEFT HAND IS STILL GOOD.
[2020-01-25] MEDS ORDERED: PANTOPRAZOLE SOD 40 MG TABEC PO SCH (07:30)
== END 2020-01-24 20:05 | DRG 653 ==
LOC: OR 12:39 → PACU V 14:29 → MED/SURG 19:13
PROVIDERS: ADMIT Internal Medicine; ATTEND Internal Medicine
PROC: 0TQB0ZZ Repair Bladder, Open Approach (ICD-10-PCS; 2020-01-16)
PROC: 0TPB00Z Removal of Drainage Device from Bladder, Open Approach (ICD-10-PCS; 2020-01-16)
PROC: 5A1D70Z Performance of Urinary Filtration, Intermittent, Less than 6 Hours Per Day (ICD-10-PCS; 2020-01-16)
PROC: 0JPT00Z Removal of Drainage Device from Trunk Subcutaneous Tissue and Fascia, Open Approach (ICD-10-PCS; 2020-01-16)
PROC: 0T1 Urinary System, Bypass (ICD-10-PCS; principal; 2020-01-16 14:00)
PROC: 0DB68ZX Excision of Stomach, Via Natural or Artificial Opening Endoscopic, Diagnostic (ICD-10-PCS; 2020-01-20)
PROC: 0DB78ZX Excision of Stomach, Pylorus, Via Natural or Artificial Opening Endoscopic, Diagnostic (ICD-10-PCS; 2020-01-20)
DX: N31.9 Neuromuscular dysfunction of bladder, unspecified (principal); N18.6 End stage renal disease; N13.0 Hydronephrosis with ureteropelvic junction obstruction; N13.30 Unspecified hydronephrosis; N39.498 Other specified urinary incontinence; Z99.2 Dependence on renal dialysis; D63.1 Anemia in chronic kidney disease; E21.3 Hyperparathyroidism, unspecified; K20.90 Esophagitis, unspecified without bleeding; E10.42 Type 1 diabetes mellitus with diabetic polyneuropathy; E10.43 Type 1 diabetes mellitus with diabetic autonomic (poly)neuropathy; K31.84 Gastroparesis; K29.70 Gastritis, unspecified, without bleeding; E87.8 Other disorders of electrolyte and fluid balance, not elsewhere classified; R33.8 Other retention of urine; N13.5 Crossing vessel and stricture of ureter without hydronephrosis; Z20.828 Contact with and (suspected) exposure to other viral communicable diseases
CPT/HCPCS: 36415; 43239; 71045; 74018; 74019; 80048; 80053; 81001; 82040; 82150; 82746; 82948; 83036; 83540; 83690; 83735; 83970; 84100; 84439; 84443; 84466; 85025; 85045; 85610; 85730; 86705; 86706; 87340; 88300; 88305; 88312; 96361; 96366; 96372; 97139; 99251; J0360; J0610; J1580; J1644; J1756; J1817; J2001; J2250; J2270; J2405; J2550; J2710; J2765; J3010; J7030; J7040; J7050; J7799; U0002

== ENCOUNTER 2020-05-22 00:59 | Emergency (ER) | payer BC ==
[~2020-05-22] VITALS: Ht 185.4 cm; Wt 98.9 kg
[~2020-05-22 00:59] MED LIST changes: -FENTANYL CITRATE/PF 100MCG/2 ML INJ ONE; -GLYCOPYRROLATE INJ 0.2 MG/ML VIAL ONE; -LIDOCAINE HCL 2% JELLY 5 ML TUBE ONE; -LIDOCAINE HCL 2% LOCAL INJ 5 ML SDV VIAL INJ ONE; -MIDAZOLAM HCL 2 MG/2 ML VIAL ONE; -MORPHINE SULFATE INJ 10 MG/ML ONE; -NEOSTIGMINE 1 MG/ML 10ML VIAL ONE; -ONDANSETRON HCL INJ 2MG/ML 2ML 2 MG/ML VIAL ONE; -PROPOFOL IV EMULSION 10 MG/ML 20 ML VIAL ONE; -ROCURONIUM BROMIDE 10 MG/ML 5ML VIAL IV ONE; -SEVOFLURANE INHAL SOLN 250 ML PEN BTL ONE
[2020-05-22 02:40] LABS: CLARITY,URINE CLOUDY (CLEAR); COLOR,URINE YELLOW (YELLOW); KETONES,URINE NEGATIVE (NEGATIVE); LEUKOCYTE ESTERASE ,URINE SMALL (NEGATIVE); NITRITE,URINE NEGATIVE (NEGATIVE); PROTEIN,URINE DIPSTICK >=300 (NEGATIVE); URINE UROBILINOGEN 0.2 mg/dL (0.2 - 1)
[2020-05-22 02:49] LABS: BACTERIA,URINE MODERATE /HPF; EPITHELIAL CELLS,URINE FEW /LPF; WBC,URINE (MAN) >50 /HPF (0-5)
[2020-05-22 03:27] VITALS: BP 173/100
== END 2020-05-22 03:29 | disposition home or self-care (01) ==
LOC: ER 01:55
DX: M54.5 Low back pain (principal); N39.0 Urinary tract infection, site not specified; I12.0 Hypertensive chronic kidney disease with stage 5 chronic kidney disease or end stage renal disease; E11.22 Type 2 diabetes mellitus with diabetic chronic kidney disease; E11.65 Type 2 diabetes mellitus with hyperglycemia; N18.6 End stage renal disease; Z99.2 Dependence on renal dialysis; D64.9 Anemia, unspecified; M21.379 Foot drop, unspecified foot
CPT/HCPCS: 81001; 99283

== ENCOUNTER 2020-06-11 23:47 | Inpatient (IN) | payer BC ==
[~2020-06-11] VITALS: Ht 180.3 cm; Wt 96.2 kg
[2020-06-12 00:26] LABS: BASOPHILS % 0.4 % (0.0-1.0); EOSINOPHILS # (AUTO) 0.2 (0.0-0.4); HEMOGLOBIN 9.9 g/dL (14.0-18.0); LYMPHOCYTES # (AUTO) 0.7 (1.0-3.2); LYMPHOCYTES % 10.1 % (18.0-39.1); MEAN CORPUSCULAR HEMOGLOBIN 26.2 pg (28-32); MEAN CORPUSCULAR HGB CONC 31.9 g/dL (31-35); MONOCYTES # (AUTO) 0.5 (0.2-0.8); MONOCYTES % 7.3 % (4.4-11.3); NEUTROPHILS # (AUTO) 5.4 (2.1-6.9); NEUTROPHILS % 78.3 % (38.7-80.0); PLATELET COUNT 145 x10e3/uL (140-360); RED BLOOD COUNT 3.78 x10e6/uL (4.3-5.7); RED CELL DISTRIBUTION WIDTH 15.5 % (11.7-14.4)
[2020-06-12 00:30] LABS: CLARITY,URINE TURBID (CLEAR); COLOR,URINE YELLOW (YELLOW); LEUKOCYTE ESTERASE ,URINE SMALL (NEGATIVE); NITRITE,URINE NEGATIVE (NEGATIVE)
[2020-06-12 00:31] LABS: KETONES,URINE NEGATIVE (NEGATIVE); PROTEIN,URINE DIPSTICK >=300 (NEGATIVE); URINE UROBILINOGEN 0.2 mg/dL (0.2 - 1)
[2020-06-12 00:38] LABS: AMORPHOUS SEDIMENT,URINE MODERATE (FEW); BACTERIA,URINE MANY /HPF; EPITHELIAL CELLS,URINE FEW /LPF; WBC,URINE (MAN) 21-50 /HPF (0-5)
[2020-06-12 00:45] LABS: ALBUMIN 2.7 g/dL (3.5-5.0); ALBUMIN/GLOBULIN RATIO 0.5 (0.8-2.0); ANION GAP 20.4 mmol/L (8-16); CREATININE, SERUM 10.29 mg/dL (0.72-1.25)
[2020-06-12 00:46] LABS: CALCIUM 6.9 mg/dL (8.4-10.2); POTASSIUM 5.4 mmol/L (3.5-5.1)
[2020-06-12] MEDS ORDERED: DEXTROSE 50% SYRINGE 50 ML IV STA (01:07)
[2020-06-12] MEDS ORDERED: SODIUM BICARBONATE 8.4% INJ 50 ML SYR IV STA (01:07)
[2020-06-12] MEDS ORDERED: CALCIUM GLUCONATE 10% INJ 13.95 MEQ in SODIUM CHLORIDE 0.9% 100 ML 100 ML IV ONE (01:15)
[2020-06-12] MEDS ORDERED: PIPERACILLIN/TAZOBACTAM 2.25 GM in SODIUM CHLORIDE 0.9% 50ML 50 ML IV ONE (01:15)
[2020-06-12] MEDS ORDERED: DEXTROSE 50% SYRINGE 50 ML IV PRN ×2 (01:15→09:00)
[2020-06-12] MEDS ORDERED: INSULIN REGULAR, HUMAN 100 UNIT/1 ML 3ML VIAL IV ONE (01:15)
[2020-06-12] MEDS ORDERED: SODIUM CHLORIDE FLUSH 10 ML SYR INJ PRN (01:15)
[2020-06-12] MEDS ORDERED: VANCOMYCIN 1GM/NS 250 ML 250 ML IV ONE (01:15)
[2020-06-12] MEDS ORDERED: CALCIUM GLUCONATE 10% INJ 0.465 MEQ/ML VIAL ONE (01:25)
[2020-06-12] MEDS ORDERED: SODIUM CHLORIDE 0.9% 50ML 50 ML ONE (01:26)
[2020-06-12] MEDS ORDERED: SODIUM CHLORIDE 0.9% 100 ML ONE (01:27)
[2020-06-12] MEDS ORDERED: ACETAMINOPHEN 325 MG TAB PO PRN (01:30)
[2020-06-12] MEDS: TRAMADOL HCL 50 MG TAB PO PRN (02:08)
[2020-06-12] MEDS ORDERED: VANCOMYCIN 1GM/NS 250 ML 250 ML ONE (04:41)
[2020-06-12] MEDS ORDERED: INSULIN REGULAR, HUMAN 100 UNIT/1 ML 3ML VIAL SQ SCH (07:30)
[2020-06-12] MEDS ORDERED: METOCLOPRAMIDE HCL 10 MG TAB PO PRN (09:00)
[2020-06-12] MEDS: GABAPENTIN 300 MG CAP PO SCH ×3 (09:00→21:22)
[2020-06-12] MEDS: CARVEDILOL 12.5 MG TAB PO SCH ×2 (09:00→18:07)
[2020-06-12] MEDS: MAGNESIUM OXIDE 400 MG TAB PO SCH ×3 (09:00→21:22)
[2020-06-12] MEDS: CALCITRIOL 0.25 MCG CAP PO SCH ×2 (09:30→18:08)
[2020-06-12] MEDS: SODIUM BICARBONATE 650 MG TAB PO SCH ×3 (09:30→21:22)
[2020-06-12] MEDS ORDERED: MEROPENEM 500MG/ NS 50ML 50 ML IV SCH ×2 (09:30→20:00)
[2020-06-12] MEDS ORDERED: SODIUM CHLORIDE 0.9% 1000ML 1,000 ML ONE (09:59)
[2020-06-12 10:43] VITALS: BP 140/92
[2020-06-12 10:52] VITALS: BP 140/92
[2020-06-12] MEDS: FAMOTIDINE 20 MG TAB PO SCH ×2 (11:00→18:09)
[2020-06-12] MEDS: INSULIN LISPRO 100 UNIT/1 ML 3ML VIAL SQ SCH ×5 (11:30→21:00)
[2020-06-12 12:11] VITALS: BP 143/89
[2020-06-12] MEDS ORDERED: SODIUM CHLORIDE 0.9% 250ML 500 ML IV PRN (12:45)
[2020-06-12] MEDS ORDERED: HEPARIN SOD (PORCINE) 1000 UNIT/ML SDV IV PRN (12:45)
[2020-06-12] MEDS ORDERED: SODIUM CHLORIDE 0.9% 1000ML 2,000 ML IV PRN (12:45)
[2020-06-12] MEDS: CALCIUM CARBONATE 500 MG CHEWABLE TABS PO SCH ×2 (15:23→21:22)
[2020-06-12 15:50] VITALS: BP 128/78
[2020-06-12 20:00] VITALS: BP 160/94
[2020-06-12 21:00] VITALS: BP 160/94
[2020-06-13] VITALS (8 sets, daily range): BP systolic 107–157; BP diastolic 77–94
[2020-06-13] MEDS: TRAMADOL HCL 50 MG TAB PO PRN ×3 (00:17→12:41)
[2020-06-13] MEDS: MEROPENEM 500MG/ NS 50ML 50 ML IV SCH ×2 (03:30→16:00)
[2020-06-13] MEDS ORDERED: SODIUM CHLORIDE 0.9% 250ML 250 ML ONE (03:41)
[2020-06-13] MEDS: ONDANSETRON HCL INJ 2MG/ML 2ML 2 MG/ML VIAL IV PRN (03:45)
[2020-06-13] MEDS: INSULIN LISPRO 100 UNIT/1 ML 3ML VIAL SQ SCH ×7 (07:30→21:00)
[2020-06-13 07:34] LABS: BASOPHILS % 0.7 % (0.0-1.0); EOSINOPHILS # (AUTO) 0.2 (0.0-0.4); EOSINOPHILS % 4.2 % (0.0-6.0); HEMATOCRIT 32.7 % (38.2-49.6); HEMOGLOBIN 10.3 g/dL (14.0-18.0); LYMPHOCYTES # (AUTO) 0.9 (1.0-3.2); MEAN CORPUSCULAR HEMOGLOBIN 26.2 pg (28-32); MEAN CORPUSCULAR HGB CONC 31.5 g/dL (31-35); MEAN CORPUSCULAR VOLUME 83.2 fL (81-99); MONOCYTES # (AUTO) 0.6 (0.2-0.8); NEUTROPHILS # (AUTO) 2.6 (2.1-6.9); NEUTROPHILS % 60.6 % (38.7-80.0); PLATELET COUNT 137 x10e3/uL (140-360); RED BLOOD COUNT 3.93 x10e6/uL (4.3-5.7); RED CELL DISTRIBUTION WIDTH 15.2 % (11.7-14.4)
[2020-06-13 07:44] LABS: ALBUMIN 2.5 g/dL (3.5-5.0); ALBUMIN/GLOBULIN RATIO 0.4 (0.8-2.0); ALKALINE PHOSPHATASE 145 IU/L (40-150); ANION GAP 17.3 mmol/L (8-16); BLOOD UREA NITROGEN 34 mg/dL (7-26); BUN/CREATININE RATIO 5 (6-25); CALCIUM 7.3 mg/dL (8.4-10.2); CARBON DIOXIDE 23 mmol/L (22-29); CHLORIDE 100 mmol/L (98-107); CREATININE, SERUM 6.51 mg/dL (0.72-1.25); EST GLOMERULAR FILTRATION RATE 10 ML/MIN (60-); GLUCOSE 147 mg/dL (74-118); POTASSIUM 4.3 mmol/L (3.5-5.1); SODIUM 136 mmol/L (136-145)
[2020-06-13 07:45] LABS: ALANINE AMINOTRANSFERASE < 6 IU/L (0-55)
[2020-06-13] MEDS: CALCITRIOL 0.25 MCG CAP PO SCH ×2 (08:45→17:44)
[2020-06-13] MEDS: FAMOTIDINE 20 MG TAB PO SCH ×2 (08:45→15:49)
[2020-06-13] MEDS: SODIUM BICARBONATE 650 MG TAB PO SCH ×3 (08:45→22:01)
[2020-06-13] MEDS: CALCIUM CARBONATE 500 MG CHEWABLE TABS PO SCH ×3 (08:45→22:01)
[2020-06-13] MEDS: CARVEDILOL 12.5 MG TAB PO SCH ×2 (08:46→17:44)
[2020-06-13] MEDS: MAGNESIUM OXIDE 400 MG TAB PO SCH ×3 (08:53→22:00)
[2020-06-13] MEDS: GABAPENTIN 300 MG CAP PO SCH ×3 (08:53→22:01)
[2020-06-14] VITALS (8 sets, daily range): BP systolic 107–143; BP diastolic 71–94
[2020-06-14] MEDS: MEROPENEM 500MG/ NS 50ML 50 ML IV SCH ×2 (03:40→16:46)
[2020-06-14] MEDS: FAMOTIDINE 20 MG TAB PO SCH ×2 (08:42→16:46)
[2020-06-14] MEDS: SODIUM BICARBONATE 650 MG TAB PO SCH ×3 (08:42→21:00)
[2020-06-14] MEDS: CALCIUM CARBONATE 500 MG CHEWABLE TABS PO SCH ×3 (08:42→21:00)
[2020-06-14] MEDS: CALCITRIOL 0.25 MCG CAP PO SCH ×2 (08:43→16:47)
[2020-06-14] MEDS: GABAPENTIN 300 MG CAP PO SCH ×3 (08:43→21:00)
[2020-06-14] MEDS: INSULIN LISPRO 100 UNIT/1 ML 3ML VIAL SQ SCH ×6 (08:45→21:00)
[2020-06-14] MEDS: CARVEDILOL 12.5 MG TAB PO SCH ×2 (09:00→16:47)
[2020-06-14] MEDS ORDERED: IOPAMIDOL 300MG/ML 100 ML INFUS..BTL IV ONE (11:16)
[2020-06-14] MEDS ORDERED: LIDOCAINE HCL 1% LOCAL INJ 20 ML VIAL ONE (11:16)
[2020-06-14] MEDS: TRAMADOL HCL 50 MG TAB PO PRN ×2 (12:42→18:51)
[2020-06-14] MEDS ORDERED: CALCIUM CHLORIDE 13.6 MEQ in SODIUM CHLORIDE 0.9% 100 ML 100 ML IV ONE (13:45)
[2020-06-14] MEDS ORDERED: HEPARIN SOD (PORCINE) 1000 UNIT/ML SDV IV PRN (16:45)
[2020-06-14] MEDS ORDERED: ALBUMIN 25% 12.5GM 0.25 GM/ML BTL IV PRN (16:45)
[2020-06-14] MEDS ORDERED: MANNITOL 25% 12.5GM/50 ML VIAL IV PRN (16:45)
[2020-06-14] MEDS: MAGNESIUM OXIDE 400 MG TAB PO SCH (16:47)
[2020-06-14] MEDS: ONDANSETRON HCL INJ 2MG/ML 2ML 2 MG/ML VIAL IV PRN (18:52)
[2020-06-15] VITALS (10 sets, daily range): BP systolic 121–181; BP diastolic 70–109
[2020-06-15] MEDS: MEROPENEM 500MG/ NS 50ML 50 ML IV SCH ×2 (05:33→15:36)
[2020-06-15] MEDS: INSULIN LISPRO 100 UNIT/1 ML 3ML VIAL SQ SCH ×7 (07:30→21:00)
[2020-06-15] MEDS: FAMOTIDINE 20 MG TAB PO SCH ×2 (08:44→15:36)
[2020-06-15] MEDS: CARVEDILOL 12.5 MG TAB PO SCH ×2 (08:45→17:36)
[2020-06-15] MEDS: GABAPENTIN 300 MG CAP PO SCH ×3 (08:45→21:37)
[2020-06-15] MEDS: CALCITRIOL 0.25 MCG CAP PO SCH ×2 (08:45→17:42)
[2020-06-15] MEDS: SODIUM BICARBONATE 650 MG TAB PO SCH ×3 (08:46→21:37)
[2020-06-15] MEDS: CALCIUM CARBONATE 500 MG CHEWABLE TABS PO SCH ×3 (08:46→21:37)
[2020-06-15] MEDS: ONDANSETRON HCL INJ 2MG/ML 2ML 2 MG/ML VIAL IV PRN ×2 (11:15→18:29)
[2020-06-15] MEDS: TRAMADOL HCL 50 MG TAB PO PRN ×2 (11:16→18:29)
[2020-06-15] MEDS: MAGNESIUM OXIDE 400 MG TAB PO SCH (17:36)
[2020-06-16] VITALS (9 sets, daily range): BP systolic 91–169; BP diastolic 51–98
[2020-06-16] MEDS: MEROPENEM 500MG/ NS 50ML 50 ML IV SCH (03:07)
[2020-06-16] MEDS: TRAMADOL HCL 50 MG TAB PO PRN (06:02)
[2020-06-16 06:12] LABS: ANION GAP 17.3 mmol/L (8-16); CALCIUM 7.7 mg/dL (8.4-10.2); CREATININE, SERUM 7.55 mg/dL (0.72-1.25)
[2020-06-16 06:21] LABS: POTASSIUM 6.3 mmol/L (3.5-5.1)
[2020-06-16] MEDS: INSULIN LISPRO 100 UNIT/1 ML 3ML VIAL SQ SCH ×7 (07:30→20:54)
[2020-06-16] MEDS: CARVEDILOL 12.5 MG TAB PO SCH ×2 (09:00→18:06)
[2020-06-16] MEDS: FAMOTIDINE 20 MG TAB PO SCH ×2 (14:22→14:26)
[2020-06-16] MEDS: CALCITRIOL 0.25 MCG CAP PO SCH ×2 (14:25→18:06)
[2020-06-16] MEDS: CALCIUM CARBONATE 500 MG CHEWABLE TABS PO SCH ×3 (14:25→20:53)
[2020-06-16] MEDS: SODIUM BICARBONATE 650 MG TAB PO SCH ×3 (14:25→20:53)
[2020-06-16] MEDS: GABAPENTIN 300 MG CAP PO SCH ×3 (14:25→20:53)
[2020-06-16] MEDS: CEFTRIAXONE SOD 1 GM in SODIUM CHLORIDE 0.9% 50ML 50 ML IV SCH (14:44)
[2020-06-16] MEDS: MAGNESIUM OXIDE 400 MG TAB PO SCH (18:06)
[2020-06-17] VITALS (8 sets, daily range): BP systolic 151–161; BP diastolic 92–100
[2020-06-17] MEDS: ONDANSETRON HCL INJ 2MG/ML 2ML 2 MG/ML VIAL IV PRN (02:52)
[2020-06-17] MEDS: TRAMADOL HCL 50 MG TAB PO PRN ×2 (03:15→10:25)
[2020-06-17] MEDS: GABAPENTIN 300 MG CAP PO SCH ×3 (08:15→20:53)
[2020-06-17] MEDS: CALCITRIOL 0.25 MCG CAP PO SCH ×2 (08:15→16:09)
[2020-06-17] MEDS: CEFTRIAXONE SOD 1 GM in SODIUM CHLORIDE 0.9% 50ML 50 ML IV SCH (08:15)
[2020-06-17] MEDS: FAMOTIDINE 20 MG TAB PO SCH ×2 (08:15→16:09)
[2020-06-17] MEDS: CARVEDILOL 12.5 MG TAB PO SCH ×2 (08:15→16:09)
[2020-06-17] MEDS: SODIUM BICARBONATE 650 MG TAB PO SCH ×3 (08:16→20:53)
[2020-06-17] MEDS: CALCIUM CARBONATE 500 MG CHEWABLE TABS PO SCH ×3 (08:16→20:53)
[2020-06-17] MEDS ORDERED: POTASSIUM CHLORIDE 10MEQ/100ML 100 ML IV SCH (08:30)
[2020-06-17] MEDS: INSULIN LISPRO 100 UNIT/1 ML 3ML VIAL SQ SCH ×7 (08:55→20:53)
[2020-06-17] MEDS: HYDROCODONE/APAP 5MG-325MG TAB PO PRN ×2 (14:19→23:20)
[2020-06-17] MEDS: MAGNESIUM OXIDE 400 MG TAB PO SCH (16:09)
[2020-06-18] VITALS (8 sets, daily range): BP systolic 117–190; BP diastolic 74–105
[2020-06-18 05:57] LABS: ANION GAP 16.3 mmol/L (8-16); CALCIUM 7.7 mg/dL (8.4-10.2); CREATININE, SERUM 7.89 mg/dL (0.72-1.25); POTASSIUM 5.3 mmol/L (3.5-5.1)
[2020-06-18] MEDS: HYDROCODONE/APAP 5MG-325MG TAB PO PRN ×2 (07:57→15:48)
[2020-06-18] MEDS: INSULIN LISPRO 100 UNIT/1 ML 3ML VIAL SQ SCH ×4 (08:03→16:24)
[2020-06-18] MEDS: FAMOTIDINE 20 MG TAB PO SCH ×2 (09:29→16:52)
[2020-06-18] MEDS: CEFTRIAXONE SOD 1 GM in SODIUM CHLORIDE 0.9% 50ML 50 ML IV SCH (09:29)
[2020-06-18] MEDS: CALCITRIOL 0.25 MCG CAP PO SCH ×2 (09:30→16:53)
[2020-06-18] MEDS: SODIUM BICARBONATE 650 MG TAB PO SCH ×3 (09:30→22:58)
[2020-06-18] MEDS: GABAPENTIN 300 MG CAP PO SCH ×3 (09:30→21:00)
[2020-06-18] MEDS: CALCIUM CARBONATE 500 MG CHEWABLE TABS PO SCH ×3 (09:31→22:59)
[2020-06-18] MEDS: CARVEDILOL 12.5 MG TAB PO SCH ×2 (09:41→16:53)
[2020-06-18] MEDS: MAGNESIUM OXIDE 400 MG TAB PO SCH (16:53)
[2020-06-18] MEDS: ONDANSETRON HCL INJ 2MG/ML 2ML 2 MG/ML VIAL IV PRN (21:56)
[2020-06-19] VITALS: BP 152/95
[2020-06-19 04:00] VITALS: BP 189/107
[2020-06-19] MEDS: HYDROCODONE/APAP 5MG-325MG TAB PO PRN (06:49)
[2020-06-19] MEDS: INSULIN LISPRO 100 UNIT/1 ML 3ML VIAL SQ SCH ×3 (07:30→17:17)
[2020-06-19] MEDS: FAMOTIDINE 20 MG TAB PO SCH ×2 (07:30→16:06)
[2020-06-19 08:00] VITALS: BP 150/76
[2020-06-19] MEDS: SODIUM BICARBONATE 650 MG TAB PO SCH ×3 (08:08→21:00)
[2020-06-19] MEDS: GABAPENTIN 300 MG CAP PO SCH ×3 (08:08→21:00)
[2020-06-19] MEDS: CALCIUM CARBONATE 500 MG CHEWABLE TABS PO SCH ×3 (08:08→21:00)
[2020-06-19] MEDS: CALCITRIOL 0.25 MCG CAP PO SCH ×2 (08:08→16:54)
[2020-06-19] MEDS: CEFTRIAXONE SOD 1 GM in SODIUM CHLORIDE 0.9% 50ML 50 ML IV SCH (08:10)
[2020-06-19] MEDS ORDERED: HYDRALAZINE HCL 20 MG/ML VIAL IV PRN (08:30)
[2020-06-19] MEDS: CARVEDILOL 12.5 MG TAB PO SCH ×2 (08:56→16:55)
[2020-06-19 08:57] VITALS: BP 174/93
[2020-06-19] MEDS ORDERED: AMLODIPINE BESYLATE 5 MG TAB PO ONE (09:30)
[2020-06-19 09:34] LABS: ANION GAP 15.8 mmol/L (8-16); CALCIUM 7.9 mg/dL (8.4-10.2); CREATININE, SERUM 5.79 mg/dL (0.72-1.25); POTASSIUM 5.8 mmol/L (3.5-5.1)
[2020-06-19 11:36] VITALS: BP 141/93
[2020-06-19] MEDS ORDERED: SODIUM CHLORIDE 0.9% 500ML 500 ML ONE (12:15)
[2020-06-19] MEDS ORDERED: SODIUM CHLORIDE 0.9% 0 ML ONE (12:36)
[2020-06-19] MEDS ORDERED: HEPARIN SOD (PORCINE) 1000 UNIT/ML 30ML ONE (12:36)
[2020-06-19] MEDS ORDERED: HYDROCODONE/APAP 5MG-325MG TAB PO PRN (13:45)
[2020-06-19] MEDS ORDERED: PROPOFOL IV EMULSION 10 MG/ML 20 ML VIAL ONE (13:51)
[2020-06-19] MEDS ORDERED: POVIDONE IODINE 0.05% 0.05 % ML PO ONE (13:51)
[2020-06-19] MEDS ORDERED: DEXAMETHASONE SOD PHOS INJ 4 MG/ML VIAL ONE (13:51)
[2020-06-19] MEDS ORDERED: SEVOFLURANE INHAL SOLN 250 ML PEN BTL ONE (13:51)
[2020-06-19] MEDS ORDERED: LIDOCAINE HCL 2% LOCAL INJ 5 ML SDV VIAL INJ ONE (13:51)
[2020-06-19] MEDS ORDERED: ONDANSETRON HCL INJ 2MG/ML 2ML 2 MG/ML VIAL ONE (13:51)
[2020-06-19] MEDS ORDERED: MIDAZOLAM HCL 2 MG/2 ML VIAL ONE (14:08)
[2020-06-19] MEDS ORDERED: FENTANYL CITRATE/PF 100MCG/2 ML INJ ONE (14:08)
[2020-06-19] MEDS ORDERED: SOD POLYSTYRENE SULFONATE SUSP 15 GM/60 ML BTL PO ONE (15:30)
[2020-06-19] MEDS: MAGNESIUM OXIDE 400 MG TAB PO SCH (16:54)
[2020-06-19 20:00] VITALS: BP 129/74
[2020-06-19] MEDS ORDERED: SODIUM CHLORIDE 0.9% 1000ML 1,000 ML ONE (20:45)
[2020-06-19] MEDS: ONDANSETRON HCL INJ 2MG/ML 2ML 2 MG/ML VIAL IV PRN (21:31)
[2020-06-20] VITALS (8 sets, daily range): BP systolic 119–160; BP diastolic 65–97
[2020-06-20] MEDS: AMLODIPINE BESYLATE 5 MG TAB PO SCH (06:28)
[2020-06-20] MEDS: FAMOTIDINE 20 MG TAB PO SCH ×2 (07:30→16:30)
[2020-06-20] MEDS: INSULIN LISPRO 100 UNIT/1 ML 3ML VIAL SQ SCH ×3 (07:30→16:42)
[2020-06-20 07:48] LABS: ANION GAP 14.7 mmol/L (8-16); CALCIUM 7.6 mg/dL (8.4-10.2); CREATININE, SERUM 6.18 mg/dL (0.72-1.25); POTASSIUM 4.7 mmol/L (3.5-5.1)
[2020-06-20] MEDS: CARVEDILOL 12.5 MG TAB PO SCH ×2 (09:00→16:43)
[2020-06-20] MEDS: CALCITRIOL 0.25 MCG CAP PO SCH ×2 (09:00→16:45)
[2020-06-20] MEDS: CALCIUM CARBONATE 500 MG CHEWABLE TABS PO SCH ×3 (09:00→20:55)
[2020-06-20] MEDS: CEFTRIAXONE SOD 1 GM in SODIUM CHLORIDE 0.9% 50ML 50 ML IV SCH (09:00)
[2020-06-20] MEDS: GABAPENTIN 300 MG CAP PO SCH ×3 (09:00→20:55)
[2020-06-20] MEDS: SODIUM BICARBONATE 650 MG TAB PO SCH ×3 (09:00→20:55)
[2020-06-20] MEDS: MAGNESIUM OXIDE 400 MG TAB PO SCH (16:44)
[2020-06-21 00:24] VITALS: BP 143/78
[2020-06-21 04:29] VITALS: BP 164/93
[2020-06-21] MEDS: AMLODIPINE BESYLATE 5 MG TAB PO SCH (06:30)
[2020-06-21] MEDS: FAMOTIDINE 20 MG TAB PO SCH (07:30)
[2020-06-21 08:08] VITALS: BP 183/102
[2020-06-21] MEDS: CEFTRIAXONE SOD 1 GM in SODIUM CHLORIDE 0.9% 50ML 50 ML IV SCH (08:28)
[2020-06-21] MEDS: GABAPENTIN 300 MG CAP PO SCH (08:28)
[2020-06-21] MEDS: INSULIN LISPRO 100 UNIT/1 ML 3ML VIAL SQ SCH (08:28)
[2020-06-21] MEDS: SODIUM BICARBONATE 650 MG TAB PO SCH (08:28)
[2020-06-21] MEDS: CALCIUM CARBONATE 500 MG CHEWABLE TABS PO SCH (08:28)
[2020-06-21] MEDS: CALCITRIOL 0.25 MCG CAP PO SCH (08:28)
[2020-06-21] MEDS: CARVEDILOL 12.5 MG TAB PO SCH (08:28)
[2020-06-21 08:29] VITALS: BP 183/102
[2020-06-21] MEDS ORDERED: KEFLEX125 MG/5 M PO (10:15)
== END 2020-06-21 11:06 | disposition home or self-care (01) | DRG 659 ==
LOC: ER 23:57 → ERHOLD 06-12 01:25 → OBSVTOIN 06-12 07:06 → MED/SURG 06-12 08:45
PROVIDERS: ADMIT Internal Medicine; ATTEND Internal Medicine
PROC: 5A1D70Z Performance of Urinary Filtration, Intermittent, Less than 6 Hours Per Day (ICD-10-PCS; 2020-06-12)
PROC: BT121ZZ Fluoroscopy of Left Kidney using Low Osmolar Contrast (ICD-10-PCS; principal; 2020-06-14)
PROC: 0TP93DZ Removal of Intraluminal Device from Ureter, Percutaneous Approach (ICD-10-PCS; 2020-06-14)
PROC: 5A1D70Z Performance of Urinary Filtration, Intermittent, Less than 6 Hours Per Day (ICD-10-PCS; 2020-06-14)
PROC: 5A1D70Z Performance of Urinary Filtration, Intermittent, Less than 6 Hours Per Day (ICD-10-PCS; 2020-06-16)
PROC: 5A1D70Z Performance of Urinary Filtration, Intermittent, Less than 6 Hours Per Day (ICD-10-PCS; 2020-06-18)
PROC: 031809D Bypass Left Brachial Artery to Upper Arm Vein with Autologous Venous Tissue, Open Approach (ICD-10-PCS; 2020-06-19)
PROC: 5A1D70Z Performance of Urinary Filtration, Intermittent, Less than 6 Hours Per Day (ICD-10-PCS; 2020-06-19)
PROC: 5A1D70Z Performance of Urinary Filtration, Intermittent, Less than 6 Hours Per Day (ICD-10-PCS; 2020-06-20)
DX: T83.598A Infection and inflammatory reaction due to other prosthetic device, implant and graft in urinary system, initial encounter (principal); A41.9 Sepsis, unspecified organism; N18.6 End stage renal disease; N39.0 Urinary tract infection, site not specified; I12.0 Hypertensive chronic kidney disease with stage 5 chronic kidney disease or end stage renal disease; E83.51 Hypocalcemia; E87.5 Hyperkalemia; Z99.2 Dependence on renal dialysis; D64.9 Anemia, unspecified; Z87.440 Personal history of urinary (tract) infections; M21.379 Foot drop, unspecified foot; Z90.49 Acquired absence of other specified parts of digestive tract; Z91.041 Radiographic dye allergy status; E10.22 Type 1 diabetes mellitus with diabetic chronic kidney disease; Z79.4 Long term (current) use of insulin; Z90.5 Acquired absence of kidney; Z20.822 Contact with and (suspected) exposure to COVID-19; N31.9 Neuromuscular dysfunction of bladder, unspecified; B96.20 Unspecified Escherichia coli [E. coli] as the cause of diseases classified elsewhere; Z96.651 Presence of right artificial knee joint
CPT/HCPCS: 36415; 71045; 74176; 74425; 74470; 80048; 80053; 81001; 82948; 84132; 85025; 86704; 86706; 87040; 87086; 87186; 87340; 90962; 93005; 96372; 99251; 99284; J0610; J0696; J1100; J1644; J1817; J2001; J2250; J2405; J2543; J3010; J3370; J7030; J7040; J7050; J7799; Q9967; U0002

== ENCOUNTER → 2020-08-16 | Day surgery (SDC) | payer BC ==
[~2020-08-16] MED LIST changes: +ACETAMINOPHEN/CODEINE 300MG - 30MG TAB ONE; +DEXAMETHASONE SOD PHOS INJ 4 MG/ML VIAL ONE; +FENTANYL CITRATE/PF 100MCG/2 ML INJ ONE; +HEPARIN SOD (PORCINE) 5,000 UNIT/ML VIAL ONE; +HYDROCODON-ACE1 EA11 PO; +INSULIN REGULAR, HUMAN 100 UNIT/1 ML 3ML VIAL ONE; +KEFLEX125 MG/5 M PO; +LIDOCAINE HCL 2% LOCAL INJ 5 ML SDV VIAL INJ ONE; +MIDAZOLAM HCL 2 MG/2 ML VIAL ONE; +ONDANSETRON HCL INJ 2MG/ML 2ML 2 MG/ML VIAL ONE; +PHENYLEPHRINE HCL 1% 10 MG/ML VIAL ONE; +POVIDONE IODINE 0.05% 0.05 % ML PO ONE; +PROPOFOL IV EMULSION 10 MG/ML 20 ML VIAL ONE; +SEVOFLURANE INHAL SOLN 250 ML PEN BTL ONE; +SODIUM CHLORIDE 0.9% 0 ML ONE; +SODIUM CHLORIDE 0.9% 500ML 500 ML ONE; +SODIUM CHLORIDE 0.9% 50ML 100 ML ONE
[2020-08-16 12:17] LABS: BASOPHILS % 0.8 % (0.0-1.0); EOSINOPHILS # (AUTO) 0.1 (0.0-0.4); EOSINOPHILS % 2.7 % (0.0-6.0); HEMATOCRIT 29.7 % (38.2-49.6); HEMOGLOBIN 9.3 g/dL (14.0-18.0); LYMPHOCYTES # (AUTO) 0.8 (1.0-3.2); MEAN CORPUSCULAR HEMOGLOBIN 26.1 pg (28-32); MEAN CORPUSCULAR HGB CONC 31.3 g/dL (31-35); MEAN CORPUSCULAR VOLUME 83.2 fL (81-99); MONOCYTES # (AUTO) 0.4 (0.2-0.8); MONOCYTES % 9.4 % (4.4-11.3); NEUTROPHILS # (AUTO) 2.4 (2.1-6.9); NEUTROPHILS % 65.8 % (38.7-80.0); PLATELET COUNT 151 x10e3/uL (140-360); RED BLOOD COUNT 3.57 x10e6/uL (4.3-5.7); RED CELL DISTRIBUTION WIDTH 15.1 % (11.7-14.4)
[2020-08-16 12:36] LABS: ANION GAP 14.9 mmol/L (8-16); CALCIUM 7.5 mg/dL (8.4-10.2); CREATININE, SERUM 5.2 mg/dL (0.72-1.25); POTASSIUM 4.9 mmol/L (3.5-5.1)
[2020-08-16 12:43] LABS: INR 1.11
[2020-08-16 12:44] LABS: PARTIAL THROMBOPLASTIN TIME 36.3 seconds (23.8-35.5)
[2020-08-16 15:15] VITALS: BP 104/67
== END | disposition home or self-care (01) ==
LOC: OR 11:39
PROVIDERS: ATTEND Surgery
DX: E11.22 Type 2 diabetes mellitus with diabetic chronic kidney disease (principal); I12.0 Hypertensive chronic kidney disease with stage 5 chronic kidney disease or end stage renal disease; N18.6 End stage renal disease; Z99.2 Dependence on renal dialysis; F32.9 Major depressive disorder, single episode, unspecified; Z91.041 Radiographic dye allergy status; Z79.02 Long term (current) use of antithrombotics/antiplatelets; Z79.82 Long term (current) use of aspirin; Z83.3 Family history of diabetes mellitus; Z82.49 Family history of ischemic heart disease and other diseases of the circulatory system
CPT/HCPCS: 36415; 36832; 80048; 82948; 85025; 85610; 85730; J0690; J1100; J2001; J2370; J2405; J2704; J7040; J1644; J1817; J2250; J3010; J7050

== ENCOUNTER 2021-01-17 18:03 | Inpatient (IN) | payer BC, OTHER ==
[~2021-01-17] VITALS: Ht 170.2 cm; Wt 95.3 kg
[~2021-01-17 18:03] MED LIST changes: -ACETAMINOPHEN/CODEINE 300MG - 30MG TAB ONE; -DEXAMETHASONE SOD PHOS INJ 4 MG/ML VIAL ONE; -FENTANYL CITRATE/PF 100MCG/2 ML INJ ONE; -HEPARIN SOD (PORCINE) 5,000 UNIT/ML VIAL ONE; -INSULIN REGULAR, HUMAN 100 UNIT/1 ML 3ML VIAL ONE; -LIDOCAINE HCL 2% LOCAL INJ 5 ML SDV VIAL INJ ONE; -MIDAZOLAM HCL 2 MG/2 ML VIAL ONE; -ONDANSETRON HCL INJ 2MG/ML 2ML 2 MG/ML VIAL ONE; -PHENYLEPHRINE HCL 1% 10 MG/ML VIAL ONE; -POVIDONE IODINE 0.05% 0.05 % ML PO ONE; -PROPOFOL IV EMULSION 10 MG/ML 20 ML VIAL ONE; -SEVOFLURANE INHAL SOLN 250 ML PEN BTL ONE; -SODIUM CHLORIDE 0.9% 0 ML ONE; -SODIUM CHLORIDE 0.9% 500ML 500 ML ONE; -SODIUM CHLORIDE 0.9% 50ML 100 ML ONE
[2021-01-17 18:57] LABS: BASOPHILS % 0.4 % (0.0-1.0); EOSINOPHILS # (AUTO) 0.1 (0.0-0.4); EOSINOPHILS % 1.9 % (0.0-6.0); HEMATOCRIT 22.3 % (38.2-49.6); LYMPHOCYTES # (AUTO) 0.7 (1.0-3.2); LYMPHOCYTES % 13.5 % (18.0-39.1); MEAN CORPUSCULAR HEMOGLOBIN 27.3 pg (28-32); MEAN CORPUSCULAR HGB CONC 31.4 g/dL (31-35); MEAN CORPUSCULAR VOLUME 87.1 fL (81-99); MONOCYTES # (AUTO) 0.4 (0.2-0.8); MONOCYTES % 7.3 % (4.4-11.3); NEUTROPHILS # (AUTO) 3.7 (2.1-6.9); NEUTROPHILS % 76.3 % (38.7-80.0); RED BLOOD COUNT 2.56 x10e6/uL (4.3-5.7); RED CELL DISTRIBUTION WIDTH 14.6 % (11.7-14.4)
[2021-01-17 19:02] LABS: PLATELET COUNT 97 x10e3/uL (140-360)
[2021-01-17 19:14] LABS: CLARITY,URINE HAZY (CLEAR); COLOR,URINE STRAW (YELLOW); KETONES,URINE NEGATIVE (NEGATIVE); LEUKOCYTE ESTERASE ,URINE SMALL (NEGATIVE); NITRITE,URINE NEGATIVE (NEGATIVE); PROTEIN,URINE DIPSTICK >=300 (NEGATIVE); URINE UROBILINOGEN 0.2 mg/dL (0.2 - 1)
[2021-01-17 19:21] LABS: ALBUMIN/GLOBULIN RATIO 0.6 (0.8-2.0); ANION GAP 25.2 mmol/L (8-16); CALCIUM 7.3 mg/dL (8.4-10.2); CREATININE, SERUM 9.43 mg/dL (0.72-1.25); POTASSIUM 5.2 mmol/L (3.5-5.1)
[2021-01-17 19:23] LABS: BACTERIA,URINE MANY /HPF
[2021-01-17 19:27] LABS: CREATINE KINASE MB 13.8 ng/mL (0-5.0)
[2021-01-17] MEDS ORDERED: DEXTROSE 50% SYRINGE 50 ML IV PRN (20:45)
[2021-01-17] MEDS ORDERED: ONDANSETRON HCL INJ 2MG/ML 2ML 2 MG/ML VIAL IV PRN (20:45)
[2021-01-17] MEDS ORDERED: SOD POLYSTYRENE SULFONATE SUSP 15 GM/60 ML BTL PO ONE (20:45)
[2021-01-17] MEDS: INSULIN REGULAR, HUMAN 100 UNIT/1 ML SQ SCH (21:00)
[2021-01-17] MEDS: CEFTRIAXONE 1 GM in SODIUM CHLORIDE 0.9% 50ML 50 ML IV SCH (21:13)
[2021-01-17 23:49] VITALS: BP 140/96
[2021-01-18] VITALS (9 sets, daily range): BP systolic 135–161; BP diastolic 72–115
[2021-01-18] MEDS ORDERED: LIDOCAINE 4% PATCH TP PRN (00:15)
[2021-01-18] MEDS ORDERED: ONDANSETRON HCL INJ 2MG/ML 2ML 2 MG/ML VIAL IV PRN (00:15)
[2021-01-18] MEDS ORDERED: DIPHENHYDRAMINE HCL 25 MG CAP PO PRN (00:15)
[2021-01-18] MEDS ORDERED: DEXTROSE 50% SYRINGE 50 ML IV PRN (00:15)
[2021-01-18] MEDS ORDERED: DOCUSATE SODIUM 100 MG CAP PO PRN (00:15)
[2021-01-18] MEDS ORDERED: ALBUTEROL/IPRATROPIUM 3 ML NEB NEB PRN (00:15)
[2021-01-18] MEDS ORDERED: MELATONIN 5 MG TABLET PO PRN (00:15)
[2021-01-18] MEDS ORDERED: BENZONATATE 100 MG CAP PO PRN (00:15)
[2021-01-18] MEDS ORDERED: HYDRALAZINE HCL 20 MG/ML VIAL IV PRN (00:15)
[2021-01-18] MEDS ORDERED: SIMETHICONE 80 MG CHEW PO PRN (00:15)
[2021-01-18 05:48] LABS: BASOPHILS % 0.3 % (0.0-1.0); EOSINOPHILS # (AUTO) 0.1 (0.0-0.4); EOSINOPHILS % 3.3 % (0.0-6.0); LYMPHOCYTES # (AUTO) 0.8 (1.0-3.2); LYMPHOCYTES % 20.4 % (18.0-39.1); MEAN CORPUSCULAR HEMOGLOBIN 26.9 pg (28-32); MEAN CORPUSCULAR HGB CONC 30.1 g/dL (31-35); MEAN CORPUSCULAR VOLUME 89.3 fL (81-99); MONOCYTES # (AUTO) 0.3 (0.2-0.8); MONOCYTES % 7.9 % (4.4-11.3); NEUTROPHILS # (AUTO) 2.5 (2.1-6.9); NEUTROPHILS % 67.8 % (38.7-80.0); PLATELET COUNT 95 x10e3/uL (140-360); RED BLOOD COUNT 2.53 x10e6/uL (4.3-5.7); RED CELL DISTRIBUTION WIDTH 14.9 % (11.7-14.4)
[2021-01-18 06:07] LABS: HEMATOCRIT 23.6 % (38.2-49.6)
[2021-01-18 06:22] LABS: CHOL/HDL RATIO 2.9 (3.9-4.7); MAGNESIUM 1.8 MG/DL (1.3-2.1); PHOSPHORUS 7.7 MG/DL (2.3-4.7)
[2021-01-18 06:51] LABS: ALBUMIN 2.9 g/dL (3.5-5.0); ALBUMIN/GLOBULIN RATIO 0.6 (0.8-2.0); ANION GAP 26.1 mmol/L (8-16); CALCIUM 7.1 mg/dL (8.4-10.2); CREATININE, SERUM 9.98 mg/dL (0.72-1.25)
[2021-01-18 07:00] LABS: POTASSIUM 6.1 mmol/L (3.5-5.1)
[2021-01-18] MEDS: ACETAMINOPHEN 325 MG TAB PO PRN (07:25)
[2021-01-18] MEDS: CEFTRIAXONE 1 GM in SODIUM CHLORIDE 0.9% 50ML 50 ML IV SCH (07:49)
[2021-01-18] MEDS: PANTOPRAZOLE SOD 40 MG TABEC PO SCH (07:49)
[2021-01-18] MEDS: INSULIN REGULAR, HUMAN 100 UNIT/1 ML SQ SCH ×4 (08:30→20:33)
[2021-01-18] MEDS ORDERED: ALBUMIN 25% 12.5GM 0.25 GM/ML BTL IV PRN (12:15)
[2021-01-18] MEDS ORDERED: SODIUM CHLORIDE 0.9% 250ML 500 ML IV PRN (12:15)
[2021-01-18] MEDS ORDERED: SODIUM CHLORIDE 0.9% 1000ML 2,000 ML IV PRN (12:15)
[2021-01-18] MEDS ORDERED: HEPARIN SOD (PORCINE) 1000 UNIT/ML SDV IV PRN (12:15)
[2021-01-18] MEDS ORDERED: CALCIUM CARBONATE 500 MG CHEWABLE TABS PO SCH (15:00)
[2021-01-18] MEDS: EPOETIN ALFA-EPBX 10,000 UNIT/ML VIAL SC SCH (16:44)
[2021-01-18] MEDS: TRAMADOL HCL 50 MG TAB PO PRN ×2 (18:31→22:50)
[2021-01-18] MEDS ORDERED: CALCIUM ACETATE 667 MG GELCAP PO SCH (21:00)
[2021-01-18] MEDS ORDERED: INSULIN REGULAR, HUMAN 100 UNIT/1 ML SQ ONE (23:30)
[2021-01-18] MEDS ORDERED: XANAX0.25 MG PO (23:47)
[2021-01-19] VITALS (9 sets, daily range): BP systolic 120–175; BP diastolic 65–102
[2021-01-19] MEDS: CALCIUM ACETATE 667 MG GELCAP PO SCH ×4 (03:45→17:06)
[2021-01-19 06:28] LABS: BASOPHILS % 0.5 % (0.0-1.0); EOSINOPHILS # (AUTO) 0.1 (0.0-0.4); EOSINOPHILS % 3.3 % (0.0-6.0); HEMATOCRIT 24.8 % (38.2-49.6); HEMOGLOBIN 7.6 g/dL (14.0-18.0); LYMPHOCYTES # (AUTO) 0.8 (1.0-3.2); LYMPHOCYTES % 19.8 % (18.0-39.1); MEAN CORPUSCULAR HGB CONC 30.6 g/dL (31-35); MEAN CORPUSCULAR VOLUME 88.3 fL (81-99); MONOCYTES # (AUTO) 0.4 (0.2-0.8); MONOCYTES % 10.5 % (4.4-11.3); NEUTROPHILS # (AUTO) 2.6 (2.1-6.9); NEUTROPHILS % 65.4 % (38.7-80.0); PLATELET COUNT 132 x10e3/uL (140-360); RED BLOOD COUNT 2.81 x10e6/uL (4.3-5.7); RED CELL DISTRIBUTION WIDTH 14.7 % (11.7-14.4)
[2021-01-19 06:54] LABS: ANION GAP 20.8 mmol/L (8-16); CALCIUM 8.5 mg/dL (8.4-10.2); CREATININE, SERUM 7.45 mg/dL (0.72-1.25); POTASSIUM 4.8 mmol/L (3.5-5.1)
[2021-01-19] MEDS: INSULIN REGULAR, HUMAN 100 UNIT/1 ML SQ SCH ×3 (07:30→16:50)
[2021-01-19] MEDS: PANTOPRAZOLE SOD 40 MG TABEC PO SCH (08:00)
[2021-01-19] MEDS: CEFTRIAXONE 1 GM in SODIUM CHLORIDE 0.9% 50ML 50 ML IV SCH (09:20)
[2021-01-19 09:48] LABS: EOSINOPHILS % (MANUAL) 4 % (0-7); LYMPHOCYTES % (MANUAL) 18 % (19-48); MONOCYTES % (MANUAL) 3 % (3.4-9.0); NEUTROPHILS % (MANUAL) 74 % (40-74); PLATELET ESTIMATE SLIGHTLY DECREASED; PLATELET MORPHOLOGY COMMENT NORMAL; RBC MORPHOLOGY COMMENT NORMAL
[2021-01-19] MEDS ORDERED: DEXAMETHASONE PHOS 10MG INJ 20 MG in SODIUM CHLORIDE 0.9% 50ML 50 ML IV NR ×2 (12:15→13:15)
[2021-01-19] MEDS ORDERED: DIPHENHYDRAMINE HCL INJ 25 MG in SODIUM CHLORIDE 0.9% 50ML 50 ML IV ONE ×2 (12:30→13:30)
[2021-01-19] MEDS ORDERED: FAMOTIDINE INJ 20 MG in SODIUM CHLORIDE 0.9% 50ML 50 ML IV ONE ×2 (12:45→13:45)
[2021-01-19 13:06] LABS: BASOPHILS % 0.3 % (0.0-1.0); EOSINOPHILS # (AUTO) 0.1 (0.0-0.4); EOSINOPHILS % 2.8 % (0.0-6.0); HEMATOCRIT 23.2 % (38.2-49.6); HEMOGLOBIN 7.3 g/dL (14.0-18.0); LYMPHOCYTES # (AUTO) 0.6 (1.0-3.2); LYMPHOCYTES % 19.2 % (18.0-39.1); MEAN CORPUSCULAR HEMOGLOBIN 27.5 pg (28-32); MEAN CORPUSCULAR HGB CONC 31.5 g/dL (31-35); MEAN CORPUSCULAR VOLUME 87.5 fL (81-99); MONOCYTES # (AUTO) 0.3 (0.2-0.8); MONOCYTES % 8.5 % (4.4-11.3); NEUTROPHILS # (AUTO) 2.2 (2.1-6.9); NEUTROPHILS % 68.9 % (38.7-80.0); PLATELET COUNT 118 x10e3/uL (140-360); RED BLOOD COUNT 2.65 x10e6/uL (4.3-5.7); RED CELL DISTRIBUTION WIDTH 14.8 % (11.7-14.4)
[2021-01-19] MEDS ORDERED: SODIUM CHLORIDE 0.9% 250ML 250 ML ONE (13:25)
[2021-01-19] MEDS ORDERED: IRON DEXTRAN INJ 50 MG in SODIUM CHLORIDE 0.9% 100 ML IV ONE (13:30)
[2021-01-19] MEDS ORDERED: SODIUM CHLORIDE 0.9% 1000ML 1,000 ML ONE (14:23)
[2021-01-19] MEDS ORDERED: HEPARIN SOD (PORCINE) 1000 UNIT/ML SDV ONE (14:51)
[2021-01-19] MEDS: TRAMADOL HCL 50 MG TAB PO PRN ×2 (14:54→23:55)
[2021-01-19] MEDS ORDERED: IRON DEXTRAN INJ 500 MG in SODIUM CHLORIDE 0.9% 500ML 500 ML IV PRN (15:00)
[2021-01-19] MEDS ORDERED: METOCLOPRAMIDE HCL 10 MG TAB PO PRN (16:15)
[2021-01-19] MEDS ORDERED: NIFEDIPINE 30 MG PO SCH (16:15)
[2021-01-19] MEDS: CALCITRIOL 0.25 MCG CAP PO SCH (17:10)
[2021-01-19] MEDS: INSULIN LISPRO 100 UNIT/1 ML 3ML VIAL SQ SCH ×2 (17:15→20:15)
[2021-01-19] MEDS: FLUTICASONE PROPIONATE NASAL SPRAY NS SCH (19:00)
[2021-01-19] MEDS ORDERED: NIFEDIPINE 10 MG CAP PO SCH (19:00)
[2021-01-19] MEDS: LORATADINE 10 MG TAB PO SCH (20:15)
[2021-01-20] VITALS (8 sets, daily range): BP systolic 146–177; BP diastolic 90–107
[2021-01-20 06:27] LABS: HEMATOCRIT 22.9 % (38.2-49.6); HEMOGLOBIN 7.3 g/dL (14.0-18.0); LYMPHOCYTES # (AUTO) 0.2 (1.0-3.2); LYMPHOCYTES % 6.6 % (18.0-39.1); MEAN CORPUSCULAR HEMOGLOBIN 27.5 pg (28-32); MEAN CORPUSCULAR HGB CONC 31.9 g/dL (31-35); MEAN CORPUSCULAR VOLUME 86.4 fL (81-99); MONOCYTES # (AUTO) 0.1 (0.2-0.8); MONOCYTES % 4.2 % (4.4-11.3); NEUTROPHILS # (AUTO) 2.9 (2.1-6.9); NEUTROPHILS % 88.6 % (38.7-80.0); PLATELET COUNT 132 x10e3/uL (140-360); RED BLOOD COUNT 2.65 x10e6/uL (4.3-5.7); RED CELL DISTRIBUTION WIDTH 14.4 % (11.7-14.4)
[2021-01-20 06:51] LABS: ANION GAP 19.6 mmol/L (8-16); CALCIUM 8.4 mg/dL (8.4-10.2); CREATININE, SERUM 6.22 mg/dL (0.72-1.25)
[2021-01-20 07:05] LABS: POTASSIUM 5.6 mmol/L (3.5-5.1)
[2021-01-20] MEDS: LORATADINE 10 MG TAB PO SCH ×2 (08:51→21:10)
[2021-01-20] MEDS: CEFTRIAXONE 1 GM in SODIUM CHLORIDE 0.9% 50ML 50 ML IV SCH (08:51)
[2021-01-20] MEDS: FAMOTIDINE 20 MG TAB PO SCH ×2 (08:51→15:49)
[2021-01-20] MEDS: CALCIUM ACETATE 667 MG GELCAP PO SCH ×3 (08:51→16:45)
[2021-01-20] MEDS: CALCITRIOL 0.25 MCG CAP PO SCH ×2 (08:51→16:46)
[2021-01-20] MEDS: PANTOPRAZOLE SOD 40 MG TABEC PO SCH (08:51)
[2021-01-20] MEDS ORDERED: INSULIN GLARGINE 100 UNITS/ML VIAL SQ SCH ×3 (09:00→21:00)
[2021-01-20] MEDS: ACETAMINOPHEN 325 MG TAB PO PRN (09:02)
[2021-01-20] MEDS ORDERED: NIFEDIPINE CR 30 MG TAB PO SCH (09:30)
[2021-01-20] MEDS: FLUTICASONE PROPIONATE NASAL SPRAY NS SCH (09:34)
[2021-01-20] MEDS: INSULIN LISPRO 100 UNIT/1 ML 3ML VIAL SQ SCH ×7 (09:55→21:10)
[2021-01-20] MEDS ORDERED: INSULIN GLARGINE 100 UNITS/ML VIAL SQ NR (10:15)
[2021-01-20] MEDS ORDERED: ALPRAZOLAM 0.25 MG TAB PO PRN (10:15)
[2021-01-20] MEDS ORDERED: FUROSEMIDE INJ 10 MG/ML 4 ML VIAL IV NR (12:30)
[2021-01-20] MEDS ORDERED: SOD POLYSTYRENE SULFONATE SUSP 15 GM/60 ML BTL PR NR (12:45)
[2021-01-20] MEDS: SODIUM BICARBONATE 650 MG TAB PO SCH ×2 (13:48→21:10)
[2021-01-20] MEDS: MAGNESIUM OXIDE 400 MG TAB PO SCH ×2 (13:48→21:10)
[2021-01-20] MEDS: NIFEDIPINE CR 30 MG TAB PO SCH (16:45)
[2021-01-21] VITALS (7 sets, daily range): BP systolic 105–168; BP diastolic 69–96
[2021-01-21 05:28] LABS: ANION GAP 20.1 mmol/L (8-16); CALCIUM 8.2 mg/dL (8.4-10.2); CREATININE, SERUM 7.63 mg/dL (0.72-1.25); POTASSIUM 5.1 mmol/L (3.5-5.1)
[2021-01-21] MEDS: FAMOTIDINE 20 MG TAB PO SCH ×2 (08:08→17:44)
[2021-01-21] MEDS: CALCITRIOL 0.25 MCG CAP PO SCH ×2 (08:08→17:44)
[2021-01-21] MEDS: INSULIN LISPRO 100 UNIT/1 ML 3ML VIAL SQ SCH ×7 (08:08→20:38)
[2021-01-21] MEDS: MAGNESIUM OXIDE 400 MG TAB PO SCH ×3 (08:08→20:37)
[2021-01-21] MEDS: FLUTICASONE PROPIONATE NASAL SPRAY NS SCH (08:08)
[2021-01-21] MEDS: PANTOPRAZOLE SOD 40 MG TABEC PO SCH (08:08)
[2021-01-21] MEDS: CALCIUM ACETATE 667 MG GELCAP PO SCH ×3 (08:08→17:44)
[2021-01-21] MEDS: NIFEDIPINE CR 30 MG TAB PO SCH (08:08)
[2021-01-21] MEDS: CEFTRIAXONE 1 GM in SODIUM CHLORIDE 0.9% 50ML 50 ML IV SCH (08:08)
[2021-01-21] MEDS: LORATADINE 10 MG TAB PO SCH (08:08)
[2021-01-21] MEDS: SODIUM BICARBONATE 650 MG TAB PO SCH ×3 (08:08→20:37)
[2021-01-21] MEDS ORDERED: ALPRAZOLAM 0.25 MG TAB PO PRN (08:30)
[2021-01-21] MEDS ORDERED: HYDROXYZINE HCL 10 MG TAB PO PRN (08:30)
[2021-01-21] MEDS ORDERED: FUROSEMIDE INJ 10 MG/ML 4 ML VIAL IV SCH (08:45)
[2021-01-21] MEDS: METOPROLOL TARTRATE 50 MG TAB PO SCH ×2 (09:00→17:44)
[2021-01-21] MEDS: GABAPENTIN 100 MG CAP PO SCH ×3 (09:56→20:37)
[2021-01-21] MEDS: EPOETIN ALFA-EPBX 10,000 UNIT/ML VIAL SC SCH (17:44)
[2021-01-21] MEDS ORDERED: INSULIN GLARGINE 100 UNITS/ML VIAL SQ SCH (21:00)
[2021-01-21] MEDS ORDERED: PREDNISONE 10 MG TAB PO ONE (22:00)
[2021-01-21] MEDS: TRAMADOL HCL 50 MG TAB PO PRN (23:40)
[2021-01-22] VITALS: BP 149/89
[2021-01-22] MEDS: HYDROCODONE/APAP 5MG-325MG TAB PO PRN (03:30)
[2021-01-22 04:00] VITALS: BP 160/96
[2021-01-22] MEDS ORDERED: PREDNISONE 10 MG TAB PO ONE ×3 (04:00→10:20)
[2021-01-22 05:12] LABS: BASOPHILS % 0.2 % (0.0-1.0); HEMATOCRIT 23.2 % (38.2-49.6); HEMOGLOBIN 7.1 g/dL (14.0-18.0); LYMPHOCYTES # (AUTO) 0.3 (1.0-3.2); LYMPHOCYTES % 6.6 % (18.0-39.1); MEAN CORPUSCULAR HEMOGLOBIN 27.1 pg (28-32); MEAN CORPUSCULAR HGB CONC 30.6 g/dL (31-35); MEAN CORPUSCULAR VOLUME 88.5 fL (81-99); MONOCYTES # (AUTO) 0.1 (0.2-0.8); MONOCYTES % 2.7 % (4.4-11.3); NEUTROPHILS # (AUTO) 3.7 (2.1-6.9); NEUTROPHILS % 89.8 % (38.7-80.0); PLATELET COUNT 148 x10e3/uL (140-360); RED BLOOD COUNT 2.62 x10e6/uL (4.3-5.7); RED CELL DISTRIBUTION WIDTH 14.9 % (11.7-14.4)
[2021-01-22 05:46] LABS: ANION GAP 18.5 mmol/L (8-16); CALCIUM 8.8 mg/dL (8.4-10.2); CREATININE, SERUM 6.12 mg/dL (0.72-1.25); POTASSIUM 5.5 mmol/L (3.5-5.1)
[2021-01-22 07:03] LABS: FREE T4 (FREE THYROXINE) 1.05 ng/dL (0.8-1.8); THYROID STIMULATING HORMONE 1.369 uIU/mL (0.350-4.940)
[2021-01-22] MEDS: PANTOPRAZOLE SOD 40 MG TABEC PO SCH (07:30)
[2021-01-22] MEDS: INSULIN LISPRO 100 UNIT/1 ML 3ML VIAL SQ SCH ×7 (07:30→20:59)
[2021-01-22] MEDS: FAMOTIDINE 20 MG TAB PO SCH ×2 (07:30→18:15)
[2021-01-22 09:30] VITALS: BP 186/98
[2021-01-22] MEDS: GABAPENTIN 100 MG CAP PO SCH ×3 (09:42→20:59)
[2021-01-22] MEDS: CALCIUM ACETATE 667 MG GELCAP PO SCH ×3 (09:42→18:16)
[2021-01-22] MEDS: NIFEDIPINE CR 30 MG TAB PO SCH ×2 (09:42→18:16)
[2021-01-22] MEDS: LORATADINE 10 MG TAB PO SCH (09:42)
[2021-01-22] MEDS: MAGNESIUM OXIDE 400 MG TAB PO SCH ×3 (09:42→20:59)
[2021-01-22] MEDS: FLUTICASONE PROPIONATE NASAL SPRAY NS SCH (09:42)
[2021-01-22] MEDS: METOPROLOL TARTRATE 50 MG TAB PO SCH ×2 (09:43→18:16)
[2021-01-22] MEDS: CALCITRIOL 0.25 MCG CAP PO SCH ×2 (09:44→18:16)
[2021-01-22] MEDS: SODIUM BICARBONATE 650 MG TAB PO SCH ×3 (09:44→20:59)
[2021-01-22] MEDS ORDERED: DIPHENHYDRAMINE HCL 25 MG CAP PO ONE (10:00)
[2021-01-22] MEDS: CEFTRIAXONE 1 GM in SODIUM CHLORIDE 0.9% 50ML 50 ML IV SCH (10:08)
[2021-01-22 14:14] VITALS: BP 189/101
[2021-01-22] MEDS ORDERED: FUROSEMIDE INJ 10 MG/ML 4 ML VIAL IV ONE (15:45)
[2021-01-22] MEDS ORDERED: SOD POLYSTYRENE SULFONATE SUSP 15 GM/60 ML BTL PR ONE (15:45)
[2021-01-22 16:32] VITALS: BP 135/88
[2021-01-22 20:00] VITALS: BP 185/104
[2021-01-22] MEDS ORDERED: INSULIN GLARGINE 100 UNITS/ML VIAL SQ SCH (21:00)
[2021-01-23] VITALS (7 sets, daily range): BP systolic 121–154; BP diastolic 75–98
[2021-01-23 06:39] LABS: ANION GAP 19.7 mmol/L (8-16); CALCIUM 8.9 mg/dL (8.4-10.2); CREATININE, SERUM 7.93 mg/dL (0.72-1.25); POTASSIUM 4.7 mmol/L (3.5-5.1)
[2021-01-23] MEDS: INSULIN LISPRO 100 UNIT/1 ML 3ML VIAL SQ SCH ×7 (07:30→21:00)
[2021-01-23] MEDS: PANTOPRAZOLE SOD 40 MG TABEC PO SCH (08:53)
[2021-01-23] MEDS: FAMOTIDINE 20 MG TAB PO SCH ×2 (08:53→16:30)
[2021-01-23] MEDS: FLUTICASONE PROPIONATE NASAL SPRAY NS SCH (09:03)
[2021-01-23] MEDS: SODIUM BICARBONATE 650 MG TAB PO SCH ×3 (09:03→21:15)
[2021-01-23] MEDS: GABAPENTIN 100 MG CAP PO SCH ×3 (09:03→21:15)
[2021-01-23] MEDS: CALCIUM ACETATE 667 MG GELCAP PO SCH ×3 (09:03→17:27)
[2021-01-23] MEDS: MAGNESIUM OXIDE 400 MG TAB PO SCH ×3 (09:03→21:15)
[2021-01-23] MEDS: LORATADINE 10 MG TAB PO SCH (09:03)
[2021-01-23] MEDS: CALCITRIOL 0.25 MCG CAP PO SCH ×2 (09:03→17:28)
[2021-01-23] MEDS: CEFTRIAXONE 1 GM in SODIUM CHLORIDE 0.9% 50ML 50 ML IV SCH (09:03)
[2021-01-23] MEDS: NIFEDIPINE CR 30 MG TAB PO SCH ×2 (09:04→17:28)
[2021-01-23] MEDS: METOPROLOL TARTRATE 50 MG TAB PO SCH ×2 (09:04→17:27)
[2021-01-23] MEDS ORDERED: SODIUM CHLORIDE 0.9% 1000ML 2,000 ML ONE (09:24)
[2021-01-23] MEDS: EPOETIN ALFA-EPBX 10,000 UNIT/ML VIAL SC SCH (17:42)
[2021-01-23] MEDS ORDERED: INSULIN GLARGINE 100 UNITS/ML VIAL SQ SCH (21:00)
[2021-01-23] MEDS ORDERED: PREDNISONE 20 MG TAB PO ONE (22:00)
[2021-01-23] MEDS: HYDROCODONE/APAP 5MG-325MG TAB PO PRN (23:20)
[2021-01-24] VITALS (9 sets, daily range): BP systolic 94–167; BP diastolic 63–96
[2021-01-24] MEDS: TRAMADOL HCL 50 MG TAB PO PRN (01:35)
[2021-01-24] MEDS ORDERED: PREDNISONE 20 MG TAB PO ONE ×2 (04:00→10:00)
[2021-01-24] MEDS: HYDROCODONE/APAP 5MG-325MG TAB PO PRN (04:17)
[2021-01-24] MEDS: HYDROCODONE/APAP 10MG-325MG TAB PO PRN (05:30)
[2021-01-24] MEDS: INSULIN LISPRO 100 UNIT/1 ML 3ML VIAL SQ SCH ×7 (07:30→21:00)
[2021-01-24] MEDS: FAMOTIDINE 20 MG TAB PO SCH ×2 (07:30→16:32)
[2021-01-24] MEDS: PANTOPRAZOLE SOD 40 MG TABEC PO SCH (07:30)
[2021-01-24] MEDS: CALCIUM ACETATE 667 MG GELCAP PO SCH ×3 (08:00→16:32)
[2021-01-24 08:40] LABS: INR 1.1; PROTHROMBIN TIME 15.1 seconds (11.9-14.5)
[2021-01-24] MEDS: METOPROLOL TARTRATE 50 MG TAB PO SCH ×2 (09:00→16:32)
[2021-01-24] MEDS: LORATADINE 10 MG TAB PO SCH (09:00)
[2021-01-24] MEDS: SODIUM BICARBONATE 650 MG TAB PO SCH ×3 (09:00→22:07)
[2021-01-24] MEDS: NIFEDIPINE CR 30 MG TAB PO SCH ×2 (09:00→16:32)
[2021-01-24] MEDS: MAGNESIUM OXIDE 400 MG TAB PO SCH ×3 (09:00→22:07)
[2021-01-24] MEDS: CALCITRIOL 0.25 MCG CAP PO SCH ×2 (09:00→16:32)
[2021-01-24] MEDS: GABAPENTIN 100 MG CAP PO SCH ×3 (09:00→22:07)
[2021-01-24] MEDS: CEFTRIAXONE 1 GM in SODIUM CHLORIDE 0.9% 50ML 50 ML IV SCH (09:35)
[2021-01-24] MEDS: FLUTICASONE PROPIONATE NASAL SPRAY NS SCH (09:35)
[2021-01-24] MEDS ORDERED: DIPHENHYDRAMINE HCL 25 MG CAP PO ONE (10:00)
[2021-01-24] MEDS ORDERED: MIDAZOLAM HCL 2 MG/2 ML VIAL ONE (11:02)
[2021-01-24] MEDS ORDERED: FENTANYL CITRATE/PF 100MCG/2 ML INJ ONE (11:02)
[2021-01-24] MEDS ORDERED: IOPAMIDOL 300MG/ML 100 ML INFUS..BTL IV ONE (11:02)
[2021-01-24] MEDS ORDERED: LIDOCAINE HCL 1% LOCAL INJ 20 ML VIAL ONE (11:02)
[2021-01-24] MEDS ORDERED: HEPARIN SOD/SOD CHLORIDE 0 ML ONE (11:52)
[2021-01-24] MEDS ORDERED: SODIUM CHLORIDE 0.9% 1000ML 1,000 ML ONE (11:54)
[2021-01-24] MEDS: INSULIN GLARGINE 100 UNITS/ML VIAL SQ SCH (21:00)
[2021-01-25] VITALS (8 sets, daily range): BP systolic 126–161; BP diastolic 75–106
[2021-01-25] MEDS: HYDROCODONE/APAP 10MG-325MG TAB PO PRN (01:54)
[2021-01-25] MEDS: INSULIN LISPRO 100 UNIT/1 ML 3ML VIAL SQ SCH ×7 (07:30→21:00)
[2021-01-25] MEDS: FAMOTIDINE 20 MG TAB PO SCH ×2 (07:30→17:25)
[2021-01-25] MEDS: PANTOPRAZOLE SOD 40 MG TABEC PO SCH (07:30)
[2021-01-25] MEDS: CALCIUM ACETATE 667 MG GELCAP PO SCH ×3 (08:00→17:26)
[2021-01-25] MEDS: CEFTRIAXONE 1 GM in SODIUM CHLORIDE 0.9% 50ML 50 ML IV SCH (08:14)
[2021-01-25] MEDS: FLUTICASONE PROPIONATE NASAL SPRAY NS SCH (08:16)
[2021-01-25] MEDS: METOPROLOL TARTRATE 50 MG TAB PO SCH ×2 (08:17→17:26)
[2021-01-25] MEDS: NIFEDIPINE CR 30 MG TAB PO SCH ×2 (08:17→17:26)
[2021-01-25] MEDS: MAGNESIUM OXIDE 400 MG TAB PO SCH ×3 (08:17→21:00)
[2021-01-25] MEDS: GABAPENTIN 100 MG CAP PO SCH ×3 (08:17→21:00)
[2021-01-25] MEDS: LORATADINE 10 MG TAB PO SCH (08:17)
[2021-01-25] MEDS: CALCITRIOL 0.25 MCG CAP PO SCH ×2 (08:18→17:26)
[2021-01-25] MEDS: SODIUM BICARBONATE 650 MG TAB PO SCH ×3 (08:18→21:00)
[2021-01-25] MEDS ORDERED: HYDRALAZINE HCL 20 MG/ML VIAL IV PRN (09:30)
[2021-01-25 10:05] LABS: ANION GAP 16.2 mmol/L (8-16); CALCIUM 8.3 mg/dL (8.4-10.2); CREATININE, SERUM 5.72 mg/dL (0.72-1.25); POTASSIUM 4.2 mmol/L (3.5-5.1)
[2021-01-25] MEDS ORDERED: SODIUM CHLORIDE 0.9% 500ML 500 ML ONE (11:32)
[2021-01-25] MEDS ORDERED: SODIUM CHLORIDE 0.9% 250ML 250 ML ONE (12:30)
[2021-01-25] MEDS ORDERED: BUPIVACAINE 0.25% 30ML SDV ONE (12:30)
[2021-01-25] MEDS ORDERED: FENTANYL CITRATE/PF 100MCG/2 ML INJ ONE (12:32)
[2021-01-25] MEDS ORDERED: HYDROCODONE/APAP 7.5MG-325MG 1 EA TAB PO PRN (13:45)
[2021-01-25] MEDS ORDERED: SEVOFLURANE INHAL SOLN 250 ML PEN BTL ONE (14:58)
[2021-01-25] MEDS ORDERED: POVIDONE IODINE 0.05% 0.05 % ML PO ONE (14:58)
[2021-01-25] MEDS ORDERED: GLYCOPYRROLATE INJ 0.2 MG/ML VIAL ONE (14:58)
[2021-01-25] MEDS ORDERED: ONDANSETRON HCL INJ 2MG/ML 2ML 2 MG/ML VIAL ONE (14:58)
[2021-01-25] MEDS ORDERED: NEOSTIGMINE 1 MG/ML 10ML VIAL ONE (14:58)
[2021-01-25] MEDS ORDERED: EPHEDRINE SULFATE INJ 50 MG/ML VIAL ONE (14:58)
[2021-01-25] MEDS ORDERED: PROPOFOL IV EMULSION 10 MG/ML 20 ML VIAL ONE (14:58)
[2021-01-25] MEDS ORDERED: LIDOCAINE HCL 2% LOCAL INJ 5 ML SDV VIAL INJ ONE (14:58)
[2021-01-25] MEDS ORDERED: PHENYLEPHRINE HCL 1% 10 MG/ML VIAL ONE (14:58)
[2021-01-25] MEDS ORDERED: ROCURONIUM BROMIDE 10 MG/ML 5ML VIAL IV ONE (14:58)
[2021-01-25] MEDS: ONDANSETRON HCL 4 MG ORAL DISINTEGRATING TAB PO PRN (19:59)
[2021-01-25] MEDS: HYDROMORPHONE 1MG/1ML INJ IV PRN (20:20)
[2021-01-25] MEDS: INSULIN GLARGINE 100 UNITS/ML VIAL SQ SCH (21:00)
[2021-01-26] VITALS (7 sets, daily range): BP systolic 100–163; BP diastolic 63–90
[2021-01-26] MEDS: HYDROMORPHONE 1MG/1ML INJ IV PRN ×6 (00:48→20:42)
[2021-01-26 04:58] LABS: BASOPHILS % 0.2 % (0.0-1.0); EOSINOPHILS # (AUTO) 0.1 (0.0-0.4); EOSINOPHILS % 1.1 % (0.0-6.0); HEMATOCRIT 24.4 % (38.2-49.6); HEMOGLOBIN 7.3 g/dL (14.0-18.0); LYMPHOCYTES # (AUTO) 1.5 (1.0-3.2); LYMPHOCYTES % 26.1 % (18.0-39.1); MEAN CORPUSCULAR HEMOGLOBIN 27.5 pg (28-32); MEAN CORPUSCULAR HGB CONC 29.9 g/dL (31-35); MEAN CORPUSCULAR VOLUME 92.1 fL (81-99); MONOCYTES # (AUTO) 0.4 (0.2-0.8); MONOCYTES % 7.9 % (4.4-11.3); NEUTROPHILS # (AUTO) 3.5 (2.1-6.9); NEUTROPHILS % 63.3 % (38.7-80.0); PLATELET COUNT 168 x10e3/uL (140-360); RED BLOOD COUNT 2.65 x10e6/uL (4.3-5.7); RED CELL DISTRIBUTION WIDTH 15.9 % (11.7-14.4)
[2021-01-26 05:18] LABS: ANION GAP 19.7 mmol/L (8-16); CALCIUM 7.4 mg/dL (8.4-10.2); CREATININE, SERUM 7.5 mg/dL (0.72-1.25); POTASSIUM 4.7 mmol/L (3.5-5.1)
[2021-01-26] MEDS: INSULIN LISPRO 100 UNIT/1 ML 3ML VIAL SQ SCH ×7 (07:30→20:22)
[2021-01-26] MEDS ORDERED: SODIUM CHLORIDE 0.9% 1000ML 1,000 ML ONE (07:53)
[2021-01-26] MEDS: ONDANSETRON HCL 4 MG ORAL DISINTEGRATING TAB PO PRN (08:21)
[2021-01-26] MEDS: FAMOTIDINE 20 MG TAB PO SCH ×2 (08:43→16:37)
[2021-01-26] MEDS: PANTOPRAZOLE SOD 40 MG TABEC PO SCH (08:43)
[2021-01-26] MEDS: CALCIUM ACETATE 667 MG GELCAP PO SCH ×3 (08:43→16:38)
[2021-01-26] MEDS: LORATADINE 10 MG TAB PO SCH (08:43)
[2021-01-26] MEDS: GABAPENTIN 100 MG CAP PO SCH ×3 (08:44→20:18)
[2021-01-26] MEDS: SODIUM BICARBONATE 650 MG TAB PO SCH ×3 (08:44→20:18)
[2021-01-26] MEDS: MAGNESIUM OXIDE 400 MG TAB PO SCH ×3 (08:44→20:19)
[2021-01-26] MEDS: CALCITRIOL 0.25 MCG CAP PO SCH ×2 (08:44→16:39)
[2021-01-26] MEDS ORDERED: EPOETIN ALFA-EPBX 10,000 UNIT/ML VIAL SC NR ×2 (09:30→15:15)
[2021-01-26] MEDS ORDERED: HEPARIN SOD (PORCINE) 1000 UNIT/ML SDV IV PRN (10:30)
[2021-01-26] MEDS ORDERED: DIPHENHYDRAMINE HCL INJ 25 MG in SODIUM CHLORIDE 0.9% 50ML 50 ML IV NR (11:30)
[2021-01-26] MEDS: CEFTRIAXONE 1 GM in SODIUM CHLORIDE 0.9% 50ML 50 ML IV SCH (11:58)
[2021-01-26] MEDS ORDERED: FAMOTIDINE INJ 20 MG in SODIUM CHLORIDE 0.9% 50ML 50 ML IV NR (12:00)
[2021-01-26] MEDS ORDERED: IRON DEXTRAN INJ 50 MG in SODIUM CHLORIDE 0.9% 100 ML IV ONE (12:30)
[2021-01-26] MEDS ORDERED: METOCLOPRAMIDE HCL 10 MG/2ML VIAL IV NR (13:00)
[2021-01-26] MEDS: NIFEDIPINE CR 30 MG TAB PO SCH ×2 (13:08→16:39)
[2021-01-26] MEDS: METOPROLOL TARTRATE 50 MG TAB PO SCH ×2 (13:09→16:38)
[2021-01-26] MEDS ORDERED: IRON DEXTRAN INJ 500 MG in SODIUM CHLORIDE 0.9% 500ML 500 ML IV PRN (14:00)
[2021-01-26] MEDS ORDERED: DIPHENHYDRAMINE HCL INJ 25 MG in SODIUM CHLORIDE 0.9% 50ML 50 ML IV ONE (15:15)
[2021-01-26] MEDS ORDERED: FAMOTIDINE INJ 20 MG in SODIUM CHLORIDE 0.9% 50ML 50 ML IV ONE (15:15)
[2021-01-26 15:46] LABS: BASOPHILS % 0.4 % (0.0-1.0); EOSINOPHILS # (AUTO) 0.1 (0.0-0.4); EOSINOPHILS % 1.5 % (0.0-6.0); HEMATOCRIT 23.4 % (38.2-49.6); LYMPHOCYTES # (AUTO) 0.9 (1.0-3.2); LYMPHOCYTES % 18.9 % (18.0-39.1); MEAN CORPUSCULAR HEMOGLOBIN 27.6 pg (28-32); MEAN CORPUSCULAR HGB CONC 29.9 g/dL (31-35); MEAN CORPUSCULAR VOLUME 92.1 fL (81-99); MONOCYTES # (AUTO) 0.3 (0.2-0.8); MONOCYTES % 6.6 % (4.4-11.3); NEUTROPHILS # (AUTO) 3.4 (2.1-6.9); NEUTROPHILS % 70.5 % (38.7-80.0); PLATELET COUNT 126 x10e3/uL (140-360); RED BLOOD COUNT 2.54 x10e6/uL (4.3-5.7); RED CELL DISTRIBUTION WIDTH 15.9 % (11.7-14.4)
[2021-01-26 16:26] LABS: ANISOCYTOSIS SLIGHT; HYPOCHROMASIA SLIGHT; PLATELET ESTIMATE SLIGHTLY DECREASED; PLATELET MORPHOLOGY COMMENT NORMAL
[2021-01-26] MEDS: FLUTICASONE PROPIONATE NASAL SPRAY NS SCH (16:36)
[2021-01-26] MEDS: METOCLOPRAMIDE HCL 10 MG/2ML VIAL IV SCH (16:40)
[2021-01-26] MEDS: INSULIN GLARGINE 100 UNITS/ML VIAL SQ SCH (20:23)
[2021-01-27] VITALS: BP 120/73
[2021-01-27] MEDS: HYDROMORPHONE 1MG/1ML INJ IV PRN ×2 (00:48→04:26)
[2021-01-27 04:00] VITALS: BP 130/77
[2021-01-27] MEDS: FAMOTIDINE 20 MG TAB PO SCH (06:35)
[2021-01-27] MEDS: PANTOPRAZOLE SOD 40 MG TABEC PO SCH (06:35)
[2021-01-27] MEDS: INSULIN LISPRO 100 UNIT/1 ML 3ML VIAL SQ SCH ×2 (07:30)
[2021-01-27 08:00] VITALS: BP 130/77
[2021-01-27] MEDS: CALCIUM ACETATE 667 MG GELCAP PO SCH (08:00)
[2021-01-27] MEDS: METOCLOPRAMIDE HCL 10 MG/2ML VIAL IV SCH (08:00)
[2021-01-27 08:34] VITALS: BP 149/85
[2021-01-27] MEDS: CEFTRIAXONE 1 GM in SODIUM CHLORIDE 0.9% 50ML 50 ML IV SCH (09:00)
[2021-01-27] MEDS: FLUTICASONE PROPIONATE NASAL SPRAY NS SCH (09:00)
[2021-01-27] MEDS: LORATADINE 10 MG TAB PO SCH (09:00)
[2021-01-27] MEDS: NIFEDIPINE CR 30 MG TAB PO SCH (09:00)
[2021-01-27] MEDS: CALCITRIOL 0.25 MCG CAP PO SCH (09:00)
[2021-01-27] MEDS: GABAPENTIN 100 MG CAP PO SCH (09:00)
[2021-01-27] MEDS: METOPROLOL TARTRATE 50 MG TAB PO SCH (09:00)
[2021-01-27] MEDS: MAGNESIUM OXIDE 400 MG TAB PO SCH (09:00)
[2021-01-27] MEDS: SODIUM BICARBONATE 650 MG TAB PO SCH (09:00)
[2021-01-27] MEDS ORDERED: ONDANSETRON ODT8 MG PO (09:25)
[2021-01-27] MEDS ORDERED: REGLAN10 MG PO (09:25)
[2021-01-27] MEDS ORDERED: HIPREX1 GM PO (09:32)
== END 2021-01-27 10:52 | disposition home or self-care (01) | DRG 673 ==
LOC: ER 18:09 → ERHOLD 20:51 → MED/SURG2 23:01
PROVIDERS: ADMIT Internal Medicine; ATTEND Internal Medicine
PROC: 05763ZZ Dilation of Left Subclavian Vein, Percutaneous Approach (ICD-10-PCS; 2021-01-24)
PROC: 3E1M39Z Irrigation of Peritoneal Cavity using Dialysate, Percutaneous Approach (ICD-10-PCS; 2021-01-25)
PROC: 0WHG43Z Insertion of Infusion Device into Peritoneal Cavity, Percutaneous Endoscopic Approach (ICD-10-PCS; principal; 2021-01-25 11:00)
DX: I12.0 Hypertensive chronic kidney disease with stage 5 chronic kidney disease or end stage renal disease (principal); N18.6 End stage renal disease; T83.518A Infection and inflammatory reaction due to other urinary catheter, initial encounter; N39.0 Urinary tract infection, site not specified; Z16.24 Resistance to multiple antibiotics; E87.1 Hypo-osmolality and hyponatremia; T82.858A Stenosis of other vascular prosthetic devices, implants and grafts, initial encounter; B96.20 Unspecified Escherichia coli [E. coli] as the cause of diseases classified elsewhere; B95.2 Enterococcus as the cause of diseases classified elsewhere; E10.22 Type 1 diabetes mellitus with diabetic chronic kidney disease; Z99.2 Dependence on renal dialysis; Z79.899 Other long term (current) drug therapy; Z90.5 Acquired absence of kidney; D50.9 Iron deficiency anemia, unspecified; E87.5 Hyperkalemia; T38.0X5A Adverse effect of glucocorticoids and synthetic analogues, initial encounter; E83.52 Hypercalcemia; E10.65 Type 1 diabetes mellitus with hyperglycemia; E10.42 Type 1 diabetes mellitus with diabetic polyneuropathy; E10.51 Type 1 diabetes mellitus with diabetic peripheral angiopathy without gangrene; R06.03 Acute respiratory distress; D63.8 Anemia in other chronic diseases classified elsewhere; D63.1 Anemia in chronic kidney disease; E10.21 Type 1 diabetes mellitus with diabetic nephropathy; E10.43 Type 1 diabetes mellitus with diabetic autonomic (poly)neuropathy; K31.84 Gastroparesis; E83.42 Hypomagnesemia; E88.09 Other disorders of plasma-protein metabolism, not elsewhere classified; Z76.82 Awaiting organ transplant status
CPT/HCPCS: 36415; 36902; 71045; 80048; 80053; 80061; 81001; 82550; 82553; 82784; 82948; 83036; 83735; 83880; 84100; 84439; 84443; 84484; 85025; 85610; 86704; 86706; 87086; 87186; 87340; 90962; 93005; 94640; 94799; 96372; 99284; J0360; J0696; J1100; J1170; J1200; J1644; J1750; J1815; J1940; J2001; J2250; J2370; J2405; J2710; J2765; J3010; J7030; J7040; J7050; J7512; Q0162; Q9967; U0002

== ENCOUNTER 2021-02-12 00:38 | Emergency (ER) | payer OTHER ==
[~2021-02-12] VITALS: Ht 170.2 cm; Wt 95.3 kg
[~2021-02-12 00:38] MED LIST changes: +HIPREX1 GM PO; +ONDANSETRON ODT8 MG PO; +XANAX0.25 MG PO
== END 2021-02-12 01:15 | disposition home or self-care (01) ==
LOC: ER 01:09
DX: Z49.02 Encounter for fitting and adjustment of peritoneal dialysis catheter (principal); I12.0 Hypertensive chronic kidney disease with stage 5 chronic kidney disease or end stage renal disease; E11.22 Type 2 diabetes mellitus with diabetic chronic kidney disease; N18.6 End stage renal disease; D64.9 Anemia, unspecified; M21.379 Foot drop, unspecified foot
CPT/HCPCS: 99282